=== PATIENT | male | born 1940 | race Two or more races ===

== ENCOUNTER 2018-12-11 13:47 | Inpatient (IN) | payer MEDICAID ==
[~2018-12-11] VITALS: Ht 167.6 cm; Wt 89.8 kg
[2018-12-11] VITALS (24 sets, daily range): BP systolic 77–126; BP diastolic 36–60
--- NOTE | 2018-12-11 13:55 | NUR ---
ED Nurse Note: Patient brought from [facility] [place] y[facility] bt transoport. IV access tot he elft arm removed due to infiltration patient A&O X1 SNF reported per transport that patient has been feverish receiving tylenol for 2 days and has been increasingly confused. Normal baseline A&O 3-4. No complaints of pain oral temp 101.2 EKG and xray ordered.
[2018-12-11] MEDS: Vancomycin 1 GM in NS 275 ML IV ONE ×2 (14:00→16:34)
[2018-12-11] MEDS ORDERED: Sodium Chloride 2,600 ML IVLG ONE (14:00)
--- NOTE | 2018-12-11 14:00 | Emergency Room Report ---
History of Present Illness General Chief Complaint: Altered Mental Status Source: EMS Present Illness HPI 78-year-old male presents with altered mental status, sepsis, history of hypertension, diabetes, foot amputation fever x1 day, measured fever, hypotension in 90s, unknown aggravating relieving factors severity is severe, symptoms are constant patient presents for septic work-up and evaluation. Allergies: Coded Allergies: PENICILLINS (Verified Allergy, Unknown, 12/11/18) Patient History Limited by: medical condition - Confused altered Past Medical History: see triage record Reviewed Nursing Documentation: PMH: Agreed; PSxH: Agreed Nursing Documentation-PMH Past Medical History: No History, Except For Hx Hypertension: Yes Hx Diabetes: Yes - DM 2 Review of Systems All Other Systems: limited - Confused altered Physical Exam Vital Signs Date Time Temp Pulse Resp B/P (MAP) Pulse Ox O2 Delivery O2 Flow Rate FiO2 12/11/18 13:47 100.2 101 24 101/52 (68) 100 Nasal Cannula 5.0 Sp02 EP Interpretation: reviewed, normal General Appearance: alert, moderate distress Head: normocephalic, atraumatic Eyes: bilateral eye PERRL, bilateral eye EOMI ENT: uvula midline, dry mucus membranes Neck: supple, thyroid normal, supple/symm/no masses Respiratory: lungs clear, no respiratory distress, no retraction, no accessory muscle use Cardiovascular #1: normal peripheral pulses, no edema, no gallop, no murmur, tachycardia Gastrointestinal: non tender, soft, no guarding, no rebound Musculoskeletal: normal inspection, other - LLE: left bartender helper to palpation , warm Neurologic: alert, responsive Psychiatric: other - confused Skin: no rash, warm/dry Procedures Critical Care Time Critical Care Time Given the critical condition in which the patient arrived, the patient was immediately assessed by myself and the nurse, and cardiac monitoring initiated due to the potential for rapid decompensation of the patient's clinical condition. During the course of the patient's stay, I spent a considerable amount of time at the bedside performing serial re-evaluations of the patient's hemodynamic and clinical status because of the recognized potential threat to life or limb in this condition. I then had a chance to review not only all of the available current laboratory and radiographic studies obtained today, but I also reviewed old records available to me at the time. Additionally, any ancillary information available including petroleum refining firer records were reviewed. Sequential vital signs were obtained. Critical Care time of 34 minutes was performed exclusive of billable procedures. Central Line Central Line : Consent: Emergent Central Line Lumen: triple Maximal Sterile Barrier Tech: yes cap, yes mask, yes sterile gown, yes sterile gloves, yes large sterile sheet, yes hand hygiene, yes chlorhexidine prep Central Line Postion: femoral (R) Anesthesia: Lidocaine cc's of anesthesia: 5 Complications: none Central Line Post Position: sutured, good blood return Attempts: One Patient Tolerated: Well Complications: None Medical Decision Making Diagnostic Impression: Primary Impression: Altered mental status Qualified Codes: R41.82 - Altered mental status, unspecified Additional Impressions: Sepsis Qualified Codes: A41.9 - Sepsis, unspecified organism Hypotension Qualified Codes: I95.9 - Hypotension, unspecified UTI (urinary tract infection) Qualified Codes: N30.00 - Acute cystitis without hematuria ER Course 78-year-old male presents in sepsis, patient is currently altered, pressure is normalized, after fluid bolus, patient initially hypotensive low 90s, high 80s she presents to the hospital for evaluation and resuscitation. Differential diagnosis includes pneumonia, Sepsis, ACS, UTI Patient will be resuscitated with 30 cc/kg of fluid, broad-spectrum antibiotics empirically started Patient became increasingly hypotensive and tachycardic central line had to be inserted, patient will be started on nor epi Patient will be admitted to the hospital Patient admitted to Dr. Chang Laboratory Tests Test 12/11/18 14:20 12/11/18 14:39 White Blood Count 25.9 K/UL (4.8-10.8) *H Red Blood Count 3.14 M/UL (4.70-6.10) L Hemoglobin 8.8 G/DL (14.2-18.0) L Hematocrit 27.3 % (42.0-52.0) L Mean Corpuscular Volume 87 FL (80-99) Mean Corpuscular Hemoglobin 28.0 PG (27.0-31.0) Mean Corpuscular Hemoglobin Concent 32.2 G/DL (32.0-36.0) Red Cell Distribution Width 13.9 % (11.6-14.8) Platelet Count 220 K/UL (150-450) Mean Platelet Volume 7.2 FL (6.5-10.1) Neutrophils (%) (Auto) % (45.0-75.0) Lymphocytes (%) (Auto) % (20.0-45.0) Monocytes (%) (Auto) % (1.0-10.0) Eosinophils (%) (Auto) % (0.0-3.0) Basophils (%) (Auto) % (0.0-2.0) Differential Total Cells Counted 100 Neutrophils % (Manual) 70 % (45-75) Lymphocytes % (Manual) 2 % (20-45) L Monocytes % (Manual) 2 % (1-10) Eosinophils % (Manual) 0 % (0-3) Basophils % (Manual) 0 % (0-2) Metamyelocytes % 1 % (0-0) H Band Neutrophils 25 % (0-8) H Nucleated Red Blood Cells 1 /100 WBC Platelet Estimate Adequate Platelet Morphology Normal Red Blood Cell Morphology Normal Prothrombin Time 11.9 SEC (9.30-11.50) H Prothrombin Time INR 1.1 (0.9-1.1) PTT 36 SEC (23-33) H Sodium Level 133 MMOL/L (136-145) L Potassium Level 4.3 MMOL/L (3.5-5.1) Chloride Level 100 MMOL/L (98-107) Carbon Dioxide Level 21 MMOL/L (21-32) Anion Gap 12 mmol/L (5-15) Blood Urea Nitrogen 69 mg/dL (7-18) H Creatinine 3.5 MG/DL (0.55-1.30) H Estimate Glomerular Filtration Rate mL/min (>60) Glucose Level 115 MG/DL (74-106) H Lactic Acid Level 1.50 mmol/L (0.4-2.0) Calcium Level 8.4 MG/DL (8.5-10.1) L Phosphorus Level 2.5 MG/DL (2.5-4.9) Magnesium Level 2.0 MG/DL (1.8-2.4) Total Bilirubin 0.3 MG/DL (0.2-1.0) Aspartate Amino Transferase (AST) 24 U/L (15-37) Alanine Aminotransferase (ALT) 8 U/L (12-78) L Alkaline Phosphatase 146 U/L (46-116) H Total Creatine Kinase 282 U/L (26-308) Creatine Kinase MB 1.1 NG/ML (0.0-3.6) Creatine Kinase MB Relative Index 0.3 Troponin I 0.000 ng/mL (0.000-0.056) Pro-B-Type Natriuretic Peptide 92389 pg/mL (0-125) H Total Protein 7.4 G/DL (6.4-8.2) Albumin 2.4 G/DL (3.4-5.0) L Globulin 5.0 g/dL Albumin/Globulin Ratio 0.5 (1.0-2.7) L Lipase 35 U/L (73-393) L Urine Color Yellow Urine Appearance Slightly cloudy Urine pH 5 (4.5-8.0) Urine Specific [place] 1.020 (1.005-1.035) Urine Protein 3+ (NEGATIVE) H Urine Glucose (UA) Negative (NEGATIVE) Urine Ketones Negative (NEGATIVE) Urine Blood Negative (NEGATIVE) Urine Nitrite Negative (NEGATIVE) Urine Bilirubin Negative (NEGATIVE) Urine Urobilinogen Normal MG/DL (0.0-1.0) Urine Leukocyte Esterase 1+ (NEGATIVE) H Urine RBC 0-2 /HPF (0 - 0) H Urine WBC 5-10 /HPF (0 - 0) H Urine Squamous Epithelial Cells Many /LPF (NONE/OCC) H Urine Bacteria Moderate /HPF (NONE) H EKG Diagnostic Results EKG Time: 13:59 EP Interpretation: NSR, rate 93, QTc 430, no acute ST elevations, normal axis Rhythm Strip Diag. Results Rhythm Strip Time: 14:24 EP Interpretation: yes Rate: 91 Rhythm: NSR, no PVC's, no ectopy Chest X-Ray Diagnostic Results Chest X-Ray Diagnostic Results : Chest X-Ray Ordered: Yes # of Views/Limited/Complete: 1 View Indication: Shortness of Breath EP Interpretation: Yes Interpretation: other - Congestion Impression: Other - Congestion Electronically Signed by: Moody Howell MD Other X-Ray Diagnostic Results Other X-Ray Diagnostic Results : X-Ray ordered: Left Foot # of Views/Limited Vs Complete: 3 View Indication: Pain EP Interpretation: Yes Interpretation: other - Cortical lucency seen possible osteo Impression: Other - Cortical lucency seen possible osteo Electronically Signed by: Moody Howell MD Last Vital Signs Date Time Temp Pulse Resp B/P (MAP) Pulse Ox O2 Delivery O2 Flow Rate FiO2 12/11/18 13:47 100.2 101 24 101/52 (68) 100 Nasal Cannula 5.0 Disposition: ADMITTED INPATIENT Condition: Serious Moody Howell MD Dec 11, 2018 14:00
[2018-12-11] MEDS ORDERED: Acetaminophen 650 MG SUPP RECTAL ONE ×2 (14:13→14:15)
[2018-12-11] MEDS ORDERED: Clindamycin 600mg 50 ML IVPB ONE (14:15)
[2018-12-11] MEDS ORDERED: CALCIUM CARBON600 M1 PO (14:20)
[2018-12-11] MEDS ORDERED: OMEPRAZOLE20 M2 ORAL (14:20)
[2018-12-11] MEDS ORDERED: FUROSEMIDE20 M1 ORAL (14:20)
[2018-12-11] MEDS ORDERED: ATORVASTATIN CA20 MG ORAL (14:20)
[2018-12-11] MEDS ORDERED: ACTOS15 MG ORAL (14:20)
[2018-12-11] MEDS ORDERED: ALENDRONAT70 MG/75 M PO (14:20)
[2018-12-11] MEDS ORDERED: METOPROLOL TART50 M1 ORAL (14:20)
[2018-12-11] MEDS ORDERED: COLACE100 MG ORAL (14:20)
[2018-12-11] MEDS ORDERED: GEMFIBROZIL600 M1 PO (14:20)
[2018-12-11] MEDS ORDERED: NORVASC10 MG ORAL (14:20)
[2018-12-11] MEDS ORDERED: TRAMADOL HCL100 M2 ORAL (14:20)
[2018-12-11] MEDS ORDERED: DULCOLAX10 MG RC (14:20)
[2018-12-11] MEDS ORDERED: HYDRALAZINE HCL25 M2 PO (14:20)
[2018-12-11] MEDS ORDERED: NEURONTIN300 MG ORAL (14:20)
--- NOTE | 2018-12-11 14:21 | Diagnostic Imaging Report ---
Indication: Dyspnea Comparison: None A single view chest radiograph was obtained. Findings: Doppler vascular congestion suspected with borderline cardiomegaly. Aorta is calcified. Bones are osteopenic. IMPRESSION: Suspected mild pulmonary vascular congestion
--- NOTE | 2018-12-11 14:30 | NUR ---
ED Nurse Note: RN notified Dr. Howell that pt oral temp is 102.8 F. tylenol 650mg rectal given as ordered. rectal temp 102.2 F. ICE applied.
[2018-12-11 14:51] LABS: APPEARANCE,URINE SLIGHTLY CLOUDY; BILIRUBIN, URINE NEGATIVE (NEGATIVE); GLUCOSE, URINE (UA) NEGATIVE (NEGATIVE); KETONES,URINE NEGATIVE (NEGATIVE); LEUKOCYTE ESTERASE ,URINE 1+ (NEGATIVE); NITRITE,URINE NEGATIVE (NEGATIVE); PH,URINE 5 (4.5-8.0); PROTEIN,URINE 3+ (NEGATIVE); UROBILINOGEN,URINE NORMAL MG/DL (0.0-1.0)
[2018-12-11 14:52] LABS: HEMATOCRIT 27.3 % (42.0-52.0); HEMOGLOBIN 8.8 G/DL (14.2-18.0); MEAN CORPUSCULAR VOLUME 87 FL (80-99); PLATELET COUNT 220 K/UL (150-450); RED BLOOD COUNT 3.14 M/UL (4.70-6.10); RED CELL DISTRIBUTION WIDTH 13.9 % (11.6-14.8)
[2018-12-11 14:52] LABS: COLOR,URINE YELLOW
[2018-12-11 14:57] LABS: WHITE BLOOD COUNT 25.9 K/UL (4.8-10.8)
[2018-12-11 15:02] LABS: ANION GAP 12 mmol/L (5-15); BLOOD UREA NITROGEN 69 mg/dL (7-18); CALCIUM 8.4 MG/DL (8.5-10.1); CARBON DIOXIDE 21 MMOL/L (21-32); CHLORIDE 100 MMOL/L (98-107); CREATININE 3.5 MG/DL (0.55-1.30); POTASSIUM 4.3 MMOL/L (3.5-5.1); SODIUM 133 MMOL/L (136-145)
[2018-12-11 15:07] LABS: INR 1.1 (0.9-1.1)
[2018-12-11 15:15] LABS: ALANINE AMINOTRANSFERASE 8 U/L (12-78); ALBUMIN 2.4 G/DL (3.4-5.0); ALBUMIN/GLOBULIN RATIO 0.5 (1.0-2.7); ALKALINE PHOSPHATASE 146 U/L (46-116); ASPARTATE AMINO TRANSFERASE 24 U/L (15-37); BILIRUBIN,TOTAL 0.3 MG/DL (0.2-1.0); CKMB 1.1 NG/ML (0.0-3.6); CREATINE KINASE 282 U/L (26-308); PHOSPHORUS 2.5 MG/DL (2.5-4.9)
[2018-12-11] MEDS ORDERED: Lidocaine 1% MPF 10mg/ml 5ml IM ONE (15:30)
[2018-12-11] MEDS: Cefepime HCl 2 GM in NS 110 ML IV SCH (15:40)
[2018-12-11] MEDS ORDERED: fentaNYL 100 mcg/2 mL IV ONE (15:45)
--- NOTE | 2018-12-11 16:07 | NUR ---
ED Nurse Note: CENTRAL LINE INSERTED BY MD DUE TO HYPOTENSION. IV BOLUS 1000MLS COMPLETED. MAITENENCE FLUIDS INFUSING. ANTIBIOTIC THERAPY IN PROGRESS.
--- NOTE | 2018-12-11 17:30 | NUR ---
ED Nurse Note: CALLED PT'S DAUGHTER BUT NO ANSWER AT THIS TIME. ENDORSED TO PRIMARY RN REGARDING PT'S DAUGHTER'S NUMBER.
--- NOTE | 2018-12-11 17:41 | NUR ---
ER DISCHARGE NOTE: Patient is cleared to be discharged per ERMD, per MD miller to perform the doppler exam in the ICU. Handoff given to oil driller. Advised RN that daughter requesting update once patient arrives in the ICU. Patient transferred on monitor nasal cannula insitu 5 litres oxygen via nasal cannula, patient currently sleeping, noradrenaline infusion continued via central line. IV vancomycin infusion and human albumin infuisions also in progress.
[2018-12-11] MEDS ORDERED: Albuterol/Ipratropium 3ml neb HHN PRN (17:45)
[2018-12-11] MEDS ORDERED: Morphine Sulfate 2mg/ml Inj(IV/IM USE ONLY) IVP PRN (17:45)
[2018-12-11] MEDS ORDERED: Miralax 17gm pkt ORAL PRN (17:45)
--- NOTE | 2018-12-11 17:45 | NUR ---
NURSE NOTES: Received patient from BENJAMIN Sam. Patient Blood pressure stable at this time on Levophed 4mcg/hr. patient showing sinus tachycardia on the hall monitor at this time with rate of 111 breathes per min. Patient on 3L NC with saturation 100%. patient denies pain or acute distress. Patient drowsy but arousable to name and shaking. Patient alert to name. Patient french speaking. Patient understands some urdu. Patient has right femoral TLC that is patent with intact dressing. Patient has diaper from retirement that has been removed at this time. Patient has not voided according to ER nurse. Bladder scan showed only 85mL residual urine in bladder. Condom catheter placed due to patient's lethargic state and to protect femoral line. Patient has bilateral hand 20 gauge peripheral IVs. Patient last lactic acid was 1.5. NO redraw needed per protocol. Dr Chang is the primary. Will call for admission orders. Patient bed in low position with bed alarm on and call light in reach at this time. Spoke with patient's daughter over the phone and updated her on the patient's condition.
[2018-12-11] MEDS ORDERED: HydrALAZINE 25mg tab ORAL SCH (18:00)
--- NOTE | 2018-12-11 18:22 | Diagnostic Imaging Report ---
History: PAIN Exam: XR LEFT FOOT 2 views Comparison: None available FINDINGS: Status post amputation at the mid foot. No definite appearing acute osseous destruction or periosteal reaction identified. Possible small focus of soft tissue ulceration or air at the anterior lateral aspect of the stump, clinically correlate. Osteopenia and vascular calcifications noted. No fracture. IMPRESSION: Status post amputation at the mid foot. No definite appearing acute osseous destruction or periosteal reaction identified. Possible small focus of soft tissue ulceration or air at the anterior lateral aspect of the stump, clinically correlate.
[2018-12-11] MEDS ORDERED: Amikacin Rx to dose MISC PRN (19:15)
--- NOTE | 2018-12-11 19:45 | NUR ---
HAND-OFF: Report given to BENJAMIN Motta. Patient blood pressure stable on 4mcg/hr levophed drip. Endorsed to follow up.
--- NOTE | 2018-12-11 19:50 | NUR ---
NURSE NOTES: Received patient and report from BENJAMIN Leach. Patient blood pressure stable at this time on Levophed 30mcg/hr. patient showing SR on the engine monitor, HR 69. Patient on 2L/ NC with saturation 100%. patient denies pain or acute distress. Patient drowsy but arousable to name and shaking. Patient alert to name. Patient american speaking. Patient understands some malay. NPO at this time. Patient has right femoral TLC that is patent with intact dressing, running Levophed at 4mcg/min. NS at 100ml/hr. Pt also has Right hand 22G and Left FA 20 G, all intact. Patient has condom catheter placed due to patient's lethargic state and to protect femoral line. Patient bed in low position with bed alarm on and call light in reach at this time. Will continue to monitor.
[2018-12-11] MEDS ORDERED: Ertapenem 1 GM in NS 55 ML IV ONE (20:00)
[2018-12-11] MEDS: Dyna-Hex 2% Top Sol 2oz TOPIC SCH (20:33)
[2018-12-11] MEDS: Heparin 5000 units/ml inj SUBQ SCH (20:34)
[2018-12-11] MEDS ORDERED: Vancomycin 500mg/D5W 110ml IVPB ONE ×2 (22:00)
[2018-12-11] MEDS ORDERED: Vancomycin 1 GM in D5W 275 ML IV SCH (23:45)
--- NOTE | 2018-12-11 23:52 | NUR ---
NURSE NOTES: Bladder scan showed 228ml retention of urine, per Dr Crawford to insert reyes. Order noted and carried out.
[2018-12-12] VITALS (39 sets, daily range): BP systolic 104–142; BP diastolic 43–68
[2018-12-12] MEDS ORDERED: Amikacin 500 MG in NS 110 ML IV ONE ×2
--- NOTE | 2018-12-12 01:00 | NUR ---
NURSE NOTES: Pt's resting in bed, asleep with eyes closed. VS stable, in no acute distress. Levophed has stopped. Will continue to monitor.
--- NOTE | 2018-12-12 03:00 | NUR ---
NURSE NOTES: Pt's resting in bed, asleep, in no acute distress. No more pressor. VS stable. Will continue to monitor.
[2018-12-12] MEDS: Cefepime HCl 2 GM in NS 110 ML IV SCH (04:53)
--- NOTE | 2018-12-12 05:00 | NUR ---
NURSE NOTES: Pt's resting in bed, asleep, in no acute distress. No more pressor. VS stable. Will continue to monitor.
[2018-12-12 05:45] LABS: HEMATOCRIT 25.7 % (42.0-52.0); MEAN CORPUSCULAR VOLUME 89 FL (80-99); PLATELET COUNT 214 K/UL (150-450); RED BLOOD COUNT 2.89 M/UL (4.70-6.10); RED CELL DISTRIBUTION WIDTH 14.3 % (11.6-14.8)
[2018-12-12 05:50] LABS: WHITE BLOOD COUNT 26.1 K/UL (4.8-10.8)
[2018-12-12 06:24] LABS: ALANINE AMINOTRANSFERASE 12 U/L (12-78); ALBUMIN 2.2 G/DL (3.4-5.0); ALBUMIN/GLOBULIN RATIO 0.4 (1.0-2.7); ALKALINE PHOSPHATASE 115 U/L (46-116); ANION GAP 12 mmol/L (5-15); ASPARTATE AMINO TRANSFERASE 31 U/L (15-37); BILIRUBIN,DIRECT 0.1 MG/DL (0.0-0.3); BILIRUBIN,TOTAL 0.3 MG/DL (0.2-1.0); CALCIUM 7.7 MG/DL (8.5-10.1); CARBON DIOXIDE 19 MMOL/L (21-32); CHLORIDE 105 MMOL/L (98-107); CREATININE 3.3 MG/DL (0.55-1.30); POTASSIUM 4.3 MMOL/L (3.5-5.1); SODIUM 136 MMOL/L (136-145)
[2018-12-12 06:38] LABS: BLOOD UREA NITROGEN 68 mg/dL (7-18)
--- NOTE | 2018-12-12 07:05 | NUR ---
HAND-OFF: Report given to BENJAMIN Castro.
--- NOTE | 2018-12-12 08:00 | NUR ---
NURSE NOTES: Receive change of shift report from Kalia RN. Pt is asleep, awakens to name/voice, oriented x2; pt is primarily Arabic speaking. Pt is on 2L of oxygen via nasal cannula with 100% O2sat and bilateral diminished breath sounds on auscultation. front desk monitor displays NSR with heart rate in the 80's and bounding radia/weak peripheral pulses on palpation. Abdomen is large, round, soft/nontender to touch with hypoactive bowel sounds. Pt has Lyles catheter in place, draining yellow and mildly cloudy urine. Denies pain at this time. Pt has central line IV access on right femoral site TLC infusing NS at 100ml/hour; and two peripheral IV access, left FA #20G and right hand #22G, both saline locked, patent/intact. Skin is intact; pt has old/healed scar on sacrum and bilateral feet from history of bilateral toes amputation. Extremities are elevated on pillows. Bed is locked, in lowest position with three side rails up and call light within easy reach. Will continue to monitor pt and follow plan of care per MD orders and protocol.
[2018-12-12] MEDS ORDERED: NS 275ml ONE (08:37)
[2018-12-12] MEDS ORDERED: Tubing IV Secondary IV ONE (08:37)
[2018-12-12] MEDS ORDERED: Tubing IV Blood Pump IV ONE (08:37)
[2018-12-12] MEDS: Heparin 5000 units/ml inj SUBQ SCH ×2 (08:56→20:32)
--- NOTE | 2018-12-12 08:59 | NUR ---
RD ASSESSMENT & RECOMMENDATIONS SEE CARE ACTIVITY FOR COMPLETE ASSESSMENT DAILY ESTIMATED NEEDS: Needs based on Sepsis, 55.5kg abw 25-35 kcals/kg 7985-5259 total kcals 1-2 g protein/kg 56-111 g total protein 25-30 mL/kg 6044-2060 total fluid mLs NUTRITION DIAGNOSIS: Altered nutrition related lab values R/T sepsis, clinical condition as evidenced by critically elev wbc (26.1*), hypotensive, now off pressor support, Tmax of 102.2-> now afebrile, elev BNP (77654), elev creat (3.3). CURRENT DIET:NPO PO DIET RECOMMENDATIONS: LOW NA, CCHO MED/ texture as tolerated or per COKE CRANE OPERATOR ADDITIONAL RECOMMENDATIONS: * Per SNF: HT=5'0", [id number] (12/10/18) -> Re-calibrate bedscale * Consider COKE CRANE OPERATOR evaluation for appropriate texture * Monitor BGs, need for hypoglycemics: H/o DM * Rec wound eval: wound photos noted
[2018-12-12] MEDS ORDERED: Pantoprazole Inj IVP SCH (09:00)
--- NOTE | 2018-12-12 10:05 | Consultation ---
Consult Note Consult Note asked to eval for renal failure 78-year-old male presents with altered mental status, sepsis, history of hypertension, diabetes, foot amputation fever x1 day, measured fever, hypotension in 90s, unknown aggravating relieving factors severity is severe, symptoms are constant patient presents for septic work-up and evaluation. Allergies: PENICILLINS (Verified Allergy, Unknown, 12/11/18) Past Medical History: No History, Except For Hx Hypertension: Yes Hx Diabetes: Yes - DM 2 examined in ICU with RN Slovak speaker data reviewed . Assessment/Plan Septic shock- was on pressors , now is off Diabetic nephropathy CKD Anemia s/p foot and LE amputations Avoid nephrotoxics urine studies 2D echo Kidney TELLO keep BP and BS in check Anemia daley per orders Naveed Vanegas MD Dec 12, 2018 10:05
[2018-12-12 10:20] LABS: CHOLESTEROL 130 MG/DL (< 200); HDL CHOLESTEROL 10 MG/DL (40-60); PHOSPHORUS 4.4 MG/DL (2.5-4.9); TRIGLYCERIDES 264 MG/DL (30-150)
[2018-12-12 10:33] LABS: FERRITIN 123 NG/ML (8-388)
[2018-12-12] MEDS: D5NS 1,000 ML IV SCH (10:51)
--- NOTE | 2018-12-12 11:00 | NUR ---
NURSE NOTES: Pt was seen by Dr Crawford and Dr Vanegas. NS was discontinued and D5NS was started at 75ml/hour per MD orders. Order in place for Renal diet. 2D echo was done at bedside, with preliminary EF reading of 55-60%. Chest xray and ABGs were also drawn. VS stable.
[2018-12-12 11:24] LABS: % IRON SATURATION 4 % (15-50); IRON 6 ug/dL (50-175); TOTAL IRON BINDING CAPACITY 163 ug/dL (250-450)
--- NOTE | 2018-12-12 12:30 | NUR ---
NURSE NOTES: Pt refused to eat breakfast and lunch today. States "I'm not hungry" in Fijian and wants to sleep. Pt is drowsy and fatigued. IV fluid is currently infusing D5NS at 75ml/hour per Dr Vanegas's order. VS remain stable with heart rate/rhythm in the 70's and normal sinus rhythm. Pt remains on 2L of oxygen via nasal cannula at 100% O2sat. Remains afebrile. Denies any pain or discomfort at this time.
--- NOTE | 2018-12-12 12:37 | Diagnostic Imaging Report ---
EXAM: XR Chest, 1 View CLINICAL HISTORY: DYSPNEA TECHNIQUE: Frontal view of the chest. COMPARISON: Chest x-ray 9 20 19 1402 FINDINGS: Lungs: Vascular congestion. Mild interstitial prominence. No consolidation. Pleural space: Unremarkable. No pneumothorax. Heart: Mild cardiomegaly. Mediastinum: Unremarkable. Bones joints: Unremarkable. IMPRESSION: Mild cardiomegaly. Vascular congestion and mild interstitial prominence, worse than prior study. Query CHF.
[2018-12-12] MEDS: Docusate 100mg cap ORAL SCH ×2 (13:00→18:14)
--- NOTE | 2018-12-12 13:42 | NUR ---
RESPIRATORY NOTE: pt refusing nasal sxn for sputum culture. RN notified.
--- NOTE | 2018-12-12 14:54 | NUR ---
NURSE NOTES: Pt's daughter (next of kin) called the nurse's station and requested update on the pt's condition. Pt remains asleep with stable VS and in no apparent distress.
--- NOTE | 2018-12-12 15:50 | Diagnostic Imaging Report ---
EXAM: US Retroperitoneal Complete, Renal CLINICAL HISTORY: RENAL-A TECHNIQUE: Real-time complete ultrasound of the retroperitoneum with image documentation. COMPARISON: No relevant prior studies available. FINDINGS: Right kidney: 2.3 x 2.4 x 1.7 cm anechoic right renal cyst. Right kidney measures 9.1 x 4.51 x 5.74 cm. No stones. No hydronephrosis. Left kidney: Left kidney measures 9.1 x 5.26 x 6.24 cm. No stones. No hydronephrosis. Bladder: Lyles catheter in the urinary bladder. IMPRESSION: 2.3 x 2.4 x 1.7 cm anechoic right renal cyst. Otherwise unremarkable.
--- NOTE | 2018-12-12 16:16 | Cardiology Report ---
APPROVED REPORT EXAM: Two-dimensional and M-mode echocardiogram with Doppler and color Doppler. INDICATION LV FUNCTION M-Mode DIMENSIONS IVSd1.2 (0.7-1.1cm)Left Atrium (MM)3.5 (1.6-4.0cm) LVDd3.9 (3.5-5.6cm)Aortic Root3.6 (2.0-3.7cm) PWd1.6 (0.7-1.1cm)Aortic Cusp Exc.1.7 (1.5-2.0cm) IVSs1.3 cm LVDs2.8 (2.5-4.0cm) PWs1.0 cm Normal left ventricular chamber size, systolic function and wall motion. Left ventricular ejection fraction estimated to be 55-60 %. No left ventricular hypertrophy. No evidence of pericardial effusion. All other cardiac chamber sizes are within normal limits. Focal aortic valve sclerosis with adequate cusp excursion. Thickened mitral valve leaflets with normal excursion. Mitral annulus and aortic root calcification. Normal pulmonic valve structure. Normal tricuspid valve structure. IVC at size 2.0 cm with slightly physiologic collapse. A color flow and spectral Doppler study was performed and revealed: No aortic regurgitation. Mild mitral regurgitation. Mitral inflow indicates normal left ventricular diastolic function. Trace tricuspid regurgitation. Tricuspid systolic velocities suggests peak right ventricular systolic pressure of 17 mmHg. No Pulmonic regurgitation present.
--- NOTE | 2018-12-12 16:41 | Consultation ---
History of Present Illness General Date patient seen: Dec 12, 2018 Chief Complaint: Altered Mental Status Present Illness HPI 78-year-old male with hx of DM, HTN, bilateral BKA presented to ER from a [facility] with altered mental status, sepsis, fever x1 day. Pt has a hypotension in 90s, unknown aggravating relieving factors severity is severe. Pt was persistently hypotensive in ER and was started on Levophed drip and transferred to ICU. Allergies: Coded Allergies: PENICILLINS (Verified Allergy, Unknown, 12/11/18) Medication History Scheduled Amlodipine Besylate (Norvasc), 10 MG ORAL DAILY, (Reported) Atorvastatin Calcium* (Atorvastatin Calcium*), 10 MG ORAL BEDTIME, (Reported) Calcium Carbonate (Calcium Carbonate), 600 MG PO DAILY, (Reported) Docusate Sodium* (Colace*), 100 MG ORAL DAILY, (Reported) Furosemide* (Lasix*), 20 MG ORAL DAILY, (Reported) Gabapentin (Neurontin), 300 MG ORAL THREE TIMES A DAY, (Reported) Gemfibrozil (Gemfibrozil), 600 MG PO BID, (Reported) Hydralazine HCl (Hydralazine HCl), 25 MG PO TID, (Reported) Metoprolol Tartrate* (Metoprolol Tartrate*), 50 MG ORAL EVERY 12 HOURS, ( Reported) Omeprazole (Omeprazole), 20 MG ORAL DAILY, (Reported) Pioglitazone Hcl* (Actos*), 15 MG ORAL DAILY, (Reported) Scheduled PRN Tramadol Hcl (Tramadol Hcl), 50 MG ORAL Q4HR PRN for For Pain, (Reported) Miscellaneous Medications Alendronate Sodium (Alendronate Sodium), 70 MG PO, (Reported) Bisacodyl (Dulcolax), 10 MG RC, (Reported) Patient History Healthcare decision maker Resuscitation status Full Code Advanced Directive on File No Past Medical/Surgical History Past Medical/Surgical History: (1) History of hypertension (2) Diabetes mellitus Review of Systems All Other Systems: negative except mentioned in HPI Physical Exam General Appearance: WD/WN Lines, tubes and drains: peripheral HEENT: normocephalic, mucous membranes moist Neck: non-tender, supple Respiratory/Chest: chest wall non-tender, lungs clear Breasts: no masses Cardiovascular/Chest: normal peripheral pulses, normal rate Abdomen: normal bowel sounds, non tender Genitourinary/Rectal: normal genital exam Extremities: normal range of motion Skin Exam: normal pigmentation 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 Last 24 Hour Vital Signs Date Time Temp Pulse Resp B/P (MAP) Pulse Ox O2 Delivery O2 Flow Rate FiO2 12/12/18 15:00 79 13 128/49 (75) 100 12/12/18 14:00 78 9 127/47 (73) 100 12/12/18 13:41 100 Nasal Cannula 2.0 28 12/12/18 13:41 81 14 100 Nasal Cannula 2.0 28 12/12/18 13:00 80 12 130/46 (74) 100 12/12/18 12:00 81 12/12/18 12:00 98.1 78 11 117/45 (69) 100 12/12/18 12:00 Nasal Cannula 3.0 12/12/18 11:30 79 12 130/50 (76) 99 12/12/18 11:00 76 11 119/46 (70) 100 12/12/18 10:30 76 11 115/49 (71) 100 12/12/18 10:00 77 11 122/48 (72) 100 12/12/18 09:30 76 11 114/47 (69) 100 12/12/18 09:00 78 20 124/47 (72) 100 12/12/18 08:30 79 11 133/63 (86) 100 12/12/18 08:00 97.8 74 11 115/48 (70) 100 12/12/18 08:00 74 12/12/18 08:00 Nasal Cannula 3.0 12/12/18 07:00 74 12 116/46 (69) 100 12/12/18 06:30 73 12 118/48 (71) 100 12/12/18 06:00 74 12 120/46 (70) 100 12/12/18 05:30 72 12 109/46 (67) 100 12/12/18 05:00 75 14 125/52 (76) 100 12/12/18 04:30 75 15 124/51 (75) 100 12/12/18 04:00 Nasal Cannula 3.0 12/12/18 04:00 98.8 70 12 111/46 (67) 100 12/12/18 04:00 70 12/12/18 03:30 71 12 117/50 (72) 100 12/12/18 03:00 67 12 106/43 (64) 100 12/12/18 02:30 69 12 104/43 (63) 100 12/12/18 02:00 68 13 105/43 (63) 100 12/12/18 01:30 67 13 104/45 (64) 100 12/12/18 01:00 69 13 118/44 (68) 100 12/12/18 01:00 104/45 12/12/18 00:30 69 13 115/47 (69) 100 12/12/18 00:00 68 12/12/18 00:00 Nasal Cannula 3.0 12/12/18 00:00 65 13 116/44 (68) 100 12/12/18 00:00 118/44 12/11/18 23:30 67 13 111/47 (68) 100 12/11/18 23:00 66 13 116/46 (69) 100 12/11/18 23:00 116/45 12/11/18 22:30 65 13 116/45 (68) 100 12/11/18 22:00 117/46 12/11/18 22:00 67 13 117/46 (69) 100 12/11/18 21:30 68 13 116/47 (70) 100 12/11/18 21:00 65 13 118/47 (70) 100 12/11/18 21:00 118/47 12/11/18 20:58 100 Nasal Cannula 2.0 12/11/18 20:57 102 13 100 Nasal Cannula 2.0 12/11/18 20:30 70 13 110/48 (68) 100 12/11/18 20:19 89/39 12/11/18 20:00 73 13 89/39 (56) 100 12/11/18 20:00 Nasal Cannula 3.0 12/11/18 20:00 69 12/11/18 20:00 2.0 12/11/18 19:30 98.7 85 13 112/44 (66) 100 12/11/18 19:00 85 13 112/44 (66) 100 85 12/11/18 18:05 110 13 77/47 98 5.0 12/11/18 18:00 111 13 113/45 (67) 100 111 12/11/18 17:56 105 15 85/44 98 5.0 12/11/18 17:55 98.9 105 15 85/44 98 Nasal Cannula 5.0 12/11/18 17:45 98.9 122 13 112/57 100 Nasal Cannula 5.0 12/11/18 17:45 Nasal Cannula 3.0 12/11/18 17:45 Nasal Cannula 4.0 12/11/18 17:30 122 13 112/57 98 Nasal Cannula 5.0 12/11/18 17:30 97.7 113 13 126/60 (82) 100 113 12/11/18 17:06 123/68 12/11/18 17:01 93/57 12/11/18 16:58 98.9 91 20 105/51 98 5.0 12/11/18 16:56 98/52 12/11/18 16:51 93/57 12/11/18 16:46 93/56 Intake and Output 12/11/18 12/12/18 19:00 07:00 Intake Total 2250 ml 1571.29 ml Output Total 10 ml 380 ml Balance 2240 ml 1191.29 ml Intake IV Total 2250 ml 1571.29 ml Output Urine Total 10 ml 380 ml Laboratory Tests Test 12/12/18 04:40 12/12/18 08:50 White Blood Count 26.1 K/UL (4.8-10.8) *H Red Blood Count 2.89 M/UL (4.70-6.10) L Hemoglobin 8.0 G/DL (14.2-18.0) L Hematocrit 25.7 % (42.0-52.0) L Mean Corpuscular Volume 89 FL (80-99) Mean Corpuscular Hemoglobin 27.6 PG (27.0-31.0) Mean Corpuscular Hemoglobin Concent 31.1 G/DL (32.0-36.0) L Red Cell Distribution Width 14.3 % (11.6-14.8) Platelet Count 214 K/UL (150-450) Mean Platelet Volume 7.3 FL (6.5-10.1) Neutrophils (%) (Auto) % (45.0-75.0) Lymphocytes (%) (Auto) % (20.0-45.0) Monocytes (%) (Auto) % (1.0-10.0) Eosinophils (%) (Auto) % (0.0-3.0) Basophils (%) (Auto) % (0.0-2.0) Differential Total Cells Counted 100 Neutrophils % (Manual) 79 % (45-75) H Lymphocytes % (Manual) 9 % (20-45) L Monocytes % (Manual) 1 % (1-10) Eosinophils % (Manual) 0 % (0-3) Basophils % (Manual) 0 % (0-2) Band Neutrophils 11 % (0-8) H Platelet Estimate Adequate Platelet Morphology Normal Hypochromasia 1+ Anisocytosis 1+ Sodium Level 136 MMOL/L (136-145) Potassium Level 4.3 MMOL/L (3.5-5.1) Chloride Level 105 MMOL/L (98-107) Carbon Dioxide Level 19 MMOL/L (21-32) L Anion Gap 12 mmol/L (5-15) Blood Urea Nitrogen 68 mg/dL (7-18) H Creatinine 3.3 MG/DL (0.55-1.30) H Estimat Glomerular Filtration Rate mL/min (>60) Glucose Level 114 MG/DL (74-106) H Uric Acid 10.1 MG/DL (2.6-7.2) H Calcium Level 7.7 MG/DL (8.5-10.1) L Phosphorus Level 4.4 MG/DL (2.5-4.9) Magnesium Level 2.1 MG/DL (1.8-2.4) Iron Level 6 ug/dL (50-175) L Total Iron Binding Capacity 163 ug/dL (250-450) L Percent Iron Saturation 4 % (15-50) L Unsaturated Iron Binding 157 ug/dL (112-346) Ferritin 123 NG/ML (8-388) Total Bilirubin 0.3 MG/DL (0.2-1.0) Direct Bilirubin 0.1 MG/DL (0.0-0.3) Aspartate Amino Transf (AST/SGOT) 31 U/L (15-37) Alanine Aminotransferase (ALT/SGPT) 12 U/L (12-78) Alkaline Phosphatase 115 U/L (46-116) Total Protein 7.2 G/DL (6.4-8.2) Albumin 2.2 G/DL (3.4-5.0) L Globulin 5.0 g/dL Albumin/Globulin Ratio 0.4 (1.0-2.7) L Triglycerides Level 264 MG/DL (30-150) H Cholesterol Level 130 MG/DL (< 200) LDL Cholesterol 36 mg/dL (<100) HDL Cholesterol 10 MG/DL (40-60) L Cholesterol/HDL Ratio 13.0 (3.3-4.4) H Vitamin B12 Level > 2000 PG/ML (193-986) H Folate 5.5 NG/ML (8.6-58.9) L Thyroid Stimulating Hormone (TSH) 1.674 uiU/mL (0.358-3.740) Arterial Blood pH 7.249 (7.350-7.450) Arterial Blood Partial Pressure CO2 42.4 mmHg (35.0-45.0) Arterial Blood Partial Pressure O2 91.0 mmHg (75.0-100.0) Arterial Blood HCO3 18.1 mmol/L (22.0-26.0) L Arterial Blood Oxygen Saturation 96.5 % (95-100) Arterial Blood Base Excess -8.5 (-2-2) L Kristian Test Positive Height (Feet): 5 Height (Inches): 6.00 Weight (Pounds): 185 Medications Current Medications Medications (Trade) Dose Ordered Sig/Cammy Route PRN Reason Start Time Stop Time Status Last Admin Dose Admin Acetaminophen (Tylenol) 650 mg Q4H PRN ORAL T>100.5 12/11/18 17:45 01/10/19 17:44 Albuterol/ Ipratropium (Albuterol/ Ipratropium) 3 ml Q4H PRN HHN Shortness of Breath 12/11/18 17:45 12/16/18 17:44 Amikacin Protocol (Amikacin pharmacy to dose) 1 ea DAILY PRN MISC . 12/11/18 19:15 01/10/19 19:14 Chlorhexidine Gluconate (Yi-Hex 2%) 1 applic DAILY@2000 TOPIC 12/11/18 20:00 01/10/19 19:59 12/11/18 20:33 Dextrose/Sodium Chloride 1,000 ml @ 75 mls/hr [id number] IV 12/12/18 10:15 01/11/19 10:14 12/12/18 10:51 Docusate Sodium (Colace) 100 mg THREE TIMES A DAY ORAL 12/12/18 13:00 01/11/19 12:59 Epoetin William (Procrit (for non ESRD use)) 10,000 units MON-WED-FRI SUBQ 12/14/18 21:00 01/13/19 20:59 Ertapenem 0.5 gm/ Sodium Chloride 55 ml @ 110 mls/hr Q24H IV 12/12/18 20:00 12/17/18 19:59 Heparin Sodium (Porcine) (Heparin 5000 units/ml) 5,000 units EVERY 12 HOURS SUBQ 12/11/18 21:00 01/10/19 20:59 12/12/18 08:56 Morphine Sulfate (Morphine Sulfate) 2 mg Q4H PRN IVP Severe Pain (Pain Scale 7-10) 12/11/18 17:45 12/18/18 17:44 Norepinephrine Bitartrate 4 mg/ Dextrose 254 ml @ 0 mls/hr Q24H IV 12/11/18 19:01 01/10/19 19:00 12/11/18 20:19 Ondansetron HCl (Zofran) 4 mg Q6H PRN IVP Nausea & Vomiting 12/11/18 17:45 01/10/19 17:44 Pantoprazole (Protonix) 40 mg Q12HR IVP 12/12/18 21:00 01/11/19 08:59 Polyethylene Glycol (Miralax) 17 gm DAILYPRN PRN ORAL Constipation 12/11/18 17:45 01/10/19 17:44 Vancomycin HCl (Vanco rx to dose) 1 ea DAILY PRN MISC . 12/11/18 18:00 01/10/19 17:59 Assessment/Plan Problem List: (1) Sepsis ICD Codes: A41.9 - Sepsis, unspecified organism SNOMED: 93900076 Qualifiers: Qualified Codes: A41.9 - Sepsis, unspecified organism (2) UTI (urinary tract infection) ICD Codes: N39.0 - Urinary tract infection, site not specified SNOMED: 19691391 Qualifiers: Qualified Codes: N30.00 - Acute cystitis without hematuria (3) Diabetes mellitus ICD Codes: E11.9 - Type 2 diabetes mellitus without complications SNOMED: 25029336 (4) Hypotension ICD Codes: I95.9 - Hypotension, unspecified SNOMED: 46199764 Qualifiers: Qualified Codes: I95.9 - Hypotension, unspecified (5) History of hypertension ICD Codes: Z86.79 - Personal history of other diseases of the circulatory system SNOMED: 343112341 Assessment/Plan: iv fluids check electrolytes renal evaluaiton renal US echo cardiac evaluation dvt prophylaxis Karrie Crawford MD Dec 12, 2018 16:41
--- NOTE | 2018-12-12 17:30 | NUR ---
NURSE NOTES: Pt was seen by Dr Chang. was notified that pt has been refusing breakfast, lunch and dinner today. Pt remains on D5NS at 75ml/hour. VS stable. Orders were received and processed for AM labs, ABGs and sliding scale insulin. Also, per Dr Chang, pt is to remain in ICU until ABGs stabilize.
--- NOTE | 2018-12-12 18:30 | NUR ---
NURSE NOTES: Pt was cleaned, gown/bed linens changed and assisted with repositioning. Bilateral extremities are elevated on pillows. VS stable, denies pain and is resting in no apparent distress.
--- NOTE | 2018-12-12 19:20 | NUR ---
NURSE NOTES: Received patient and report from BENJAMIN Castro. Pt's resting in bed comfortably. No acute distress noted. SR on the residential monitor, HR 69. Patient on 2L/ NC with saturation 100%. patient denies pain or acute distress. Refused his dinner per AM nurse. Patient has right femoral TLC that is patent with intact dressing, running D5NS at 75ml/hr. Pt also has Right hand 22G and Left FA 20 G, all intact. Patient has Lyles due to urinary retention, draining cloudy yellow urine. Bed in low position with bed alarm on and call light in reach at this time. Will continue to monitor.
[2018-12-12] MEDS ORDERED: Ertapenem 500mg ivpb (q24h) IV SCH ×2 (20:00)
[2018-12-12] MEDS: Pantoprazole Inj IVP SCH (20:30)
[2018-12-12] MEDS: Dyna-Hex 2% Top Sol 2oz TOPIC SCH (20:30)
[2018-12-12] MEDS: NovoLOG Insulin Flexpen SUBQ SCH (20:33)
--- NOTE | 2018-12-12 22:00 | NUR ---
NURSE NOTES: Pt's resting in bed, in no acute distress, asleep with eyes closed. VS stable. Will continue to monitor.
[2018-12-12] MEDS ORDERED: Vancomycin 1.25gm/D5W 275ml IVPB SCH ×2 (23:00)
[2018-12-13] VITALS (24 sets, daily range): BP systolic 128–158; BP diastolic 46–66
--- NOTE | 2018-12-13 | NUR ---
NURSE NOTES: Pt's resting in bed, in no acute distress, asleep with eyes closed. VS stable. Will continue to monitor.
[2018-12-13] MEDS: D5NS 1,000 ML IV SCH ×2 (00:03→12:55)
--- NOTE | 2018-12-13 02:00 | NUR ---
NURSE NOTES: Pt's resting in bed, in no acute distress, asleep with eyes closed. VS stable. Will continue to monitor.
--- NOTE | 2018-12-13 04:00 | NUR ---
NURSE NOTES: Pt's resting in bed, in no acute distress, asleep with eyes closed. VS stable. Will continue to monitor.
[2018-12-13 05:29] LABS: HEMATOCRIT 25.6 % (42.0-52.0); HEMOGLOBIN 7.9 G/DL (14.2-18.0); MEAN CORPUSCULAR VOLUME 88 FL (80-99); PLATELET COUNT 218 K/UL (150-450); RED CELL DISTRIBUTION WIDTH 14.6 % (11.6-14.8)
[2018-12-13 05:54] LABS: WHITE BLOOD COUNT 23.3 K/UL (4.8-10.8)
[2018-12-13 05:58] LABS: ALANINE AMINOTRANSFERASE 13 U/L (12-78); ALBUMIN/GLOBULIN RATIO 0.4 (1.0-2.7); ALKALINE PHOSPHATASE 136 U/L (46-116); ANION GAP 12 mmol/L (5-15); ASPARTATE AMINO TRANSFERASE 27 U/L (15-37); BILIRUBIN,TOTAL 0.3 MG/DL (0.2-1.0); BLOOD UREA NITROGEN 63 mg/dL (7-18); CALCIUM 8.3 MG/DL (8.5-10.1); CARBON DIOXIDE 18 MMOL/L (21-32); CHLORIDE 109 MMOL/L (98-107); CREATININE 2.8 MG/DL (0.55-1.30); POTASSIUM 4.2 MMOL/L (3.5-5.1); SODIUM 139 MMOL/L (136-145)
--- NOTE | 2018-12-13 06:00 | History and Physical Report ---
DATE OF ADMISSION: 12/11/2018 NOTE: POOR AUDIO. REASON FOR ADMISSION: This is one of several admissions to [facility] for this 78-year-old patient because of septic shock secondary to infection in the left lower extremity. HISTORY OF PRESENT ILLNESS: The patient is a resident of an extended care facility where he has been in stable condition over the last several years. He is known to have several chronic medical syndrome, but has been stable on his current medication admission. He pain in his left lower extremity, which was amputated many years ago below the ankle joint. However, he did not report the pain and continued with regular activities of daily living until the day prior to admission he informed that he has pain in his left lower extremity, was found to have fever of 101.8. He was transferred to [facility] ER where intense cellulitis of the lower 2/3 of the tibia were noted. The patient developed at that time hypotension and tachycardia. He received volume replacement and was placed on pressure support of Levophed and received vancomycin, amikacin, and ertapenem. PAST MEDICAL HISTORY: The patient had peripheral vascular disease that led to amputation of both feet, motility disorder, high blood pressure, diabetes mellitus, vitamin D deficiency. MEDICATIONS: The patient has been on metformin 500 mg b.i.d., linagliptin 5 mg daily, vitamin D 5000 units daily, atorvastatin 10 mg daily, aspirin 81 mg daily. ALLERGIES: No known drug allergies. FAMILY HISTORY: Noncontributory. SOCIAL HISTORY: He is single. He was born in [place] for many years. 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 HABITS: The patient has smoking of 1 pack history of more than 40 years. He denies drinking. He denies use of illicit drugs. REVIEW OF SYSTEMS: CARDIOVASCULAR: The patient denied any chest pain, shortness of breath, palpitations, or dizziness. PULMONARY: The patient denied any cough, wheezing, or expectoration. GASTROINTESTINAL: His appetite is moderate. His weight is stable. He has no dysphagia or dyspepsia. He does have motility disorder him to take a p.r.n. medication. He takes Dulcolax or senna. GENITOURINARY: The patient denies any dysuria or frequency. He does have some incontinence. He has nocturia . JOINTS: Denies any pain, swelling, stiffness, cold extremities, photosensitivity, dry eyes, or alopecia. CENTRAL NERVOUS SYSTEM: His sleep is of good quality. No numbness, tingling, seizure disorder, and has no headache. PHYSICAL EXAMINATION: VITAL SIGNS: Blood pressure is 123/63, his pulse is 79, respirations are 11, temperature 97.8. HEENT: Eyes were normal. Pupils were round, equal, and reactive to light. Sclerae were white. Conjunctivae were pink. Extraocular movements were normal. Temporal arteries were palpable bilaterally. There was no bilateral temporal wasting. Visual fan to confrontation were normal. Neglect sign was negative. ENT, mucous membranes were not dehydrated. Auditory canals were clear and tympanic membranes could not be visualized. Nasal cavity was not congested. Nasal septum was intact. Soft palate was free of ulcerations. Pharynx was clear from exudate or tonsillar hypertrophy. Uvula danial to phonation. Tongue was moist, midline, and normally papillated. NECK: Supple. There was no goiter. No mass. No lymphadenopathy. There was no JVD. No bruits. Carotid upstroke was 2+. LUNGS: Clear. HEART: PMI was at fifth left intercostal space in midclavicular line. There was normal S1 and normal S2. There was no murmur. No arrhythmia. No S3. No S4. No pericardial rub. ABDOMEN: Soft and nontender without organomegaly. There were no masses palpable. Normal bowel sounds without bruits. There was no guarding. No rebound tenderness. No ascites. No hernia. No CVA tenderness. Liver span was 8 cm, mostly nontender. EXTREMITIES: No cyanosis or clubbing. There was 3+ edema in the left lower extremity from the amputee territory up to 2/3 of the tibia. The residual foot was warm and tender with fluctuation sign. The foot was normal temperature without tenderness and without fluctuation site. LABORATORY AND DIAGNOSTIC DATA: Hemoglobin is 8.0, hematocrit 25.7, MCV of 89, WBC of 26.1, and platelets is 214,000. His BUN and creatinine are 66 and 0.3 respectively. His sodium is 133, potassium 4.3, chloride 105, and CO2 is 19. His glucose is 114. His uric acid is 10.1. His calcium is 7.7. His phosphorus is 4.4. Magnesium is 2.1. His TIBC is 163 and saturation was 4, ferritin was 123. SGOT, SGPT, and alkaline phosphatase were normal. Triglyceride 264, total cholesterol was 138, LDL was 76, and HDL was 10. Vitamin D . His TSH was 9.64. His urine was negative with 5 to 10 WBC per high-power field and 0 to 2 RBC per high-power field. His INR was 1.1 and PTT was 36. His ABG was pH 7.24, pCO2 was 42, pO2 was 91, bicarbonate 18, and O2 saturation was 96. His chest x-ray revealed mild pulmonary congestion. His foot x-ray shows soft tissue ulceration the foot was otherwise normal. His 2D echo shows . His ejection fraction was 50% to 55%, no evidence of pericardial effusion, and mitral regurgitation . His chest x-ray show cardiomegaly, but no lung infiltrate. cyst to the right kidney. IMPRESSION: Sepsis associated with cellulitis of the left lower extremity. PLAN: Multiple consultants were called to assist in the management of this case. Nephrology, Pulmonary, and Infectious Disease will be called. Repeat laboratory tests will be done in the a.m. The case will be discussed with Infectious Disease. We will start antibiotics. Ayush Chang M.D. DR: TOREY JOB#: [id number] CC:
--- NOTE | 2018-12-13 06:00 | NUR ---
NURSE NOTES: Pt's resting in bed, asleep, with eyes closed, in no acute distress. VS stable. Will continue to monitor.
[2018-12-13 06:02] LABS: PHOSPHORUS 3.2 MG/DL (2.5-4.9)
[2018-12-13] MEDS: NovoLOG Insulin Flexpen SUBQ SCH ×4 (06:28→20:46)
--- NOTE | 2018-12-13 07:10 | NUR ---
NURSE NOTES: Received pt from BENJAMIN Motta. patient is drowsy, but able to make needs known. A/Ox1-2. Primarily speaks Afghan. 2LNC, bilateral breath sounds diminished. Patient has a LFA 20G and RH 22G and right femoral TLC. Right femoral TLC running D5NS@75ml/hr. FC draining cloudy yellow urine to gravity. Abdomen is round and slightly firm but non-tender. Bed locked, alarmed and in lowest position. Will continue plan of care.
--- NOTE | 2018-12-13 07:20 | NUR ---
HAND-OFF: Report given to BENJAMIN Leach.
[2018-12-13] MEDS: Heparin 5000 units/ml inj SUBQ SCH ×2 (09:00→20:27)
--- NOTE | 2018-12-13 09:10 | NUR ---
NURSE NOTES: Held heparin and wasted witnessed by BENJAMIN Venegas. Patient noted to be bleeding from left below ankle stump.
[2018-12-13] MEDS: Pantoprazole Inj IVP SCH ×2 (09:33→20:26)
[2018-12-13] MEDS: Docusate 100mg cap ORAL SCH ×3 (09:33→17:59)
--- NOTE | 2018-12-13 09:37 | NUR ---
NURSE NOTES: Malodorous purulent drainage oozing out of left below ankle stump. Wound culture collected and sent to lab. Washed area with soap and water and applied 4x4 gauze, ABD pad and Kerlex. Will notify
[2018-12-13] MEDS ORDERED: Iron Sucrose 200 MG in NS 110 ML IV ONE (11:00)
--- NOTE | 2018-12-13 11:19 | NUR ---
NURSE NOTES: Pt c/o of left foot pain 09/30, morphine IVP given as per ordered.
--- NOTE | 2018-12-13 11:23 | Nephrology Progress Note ---
Assessment/Plan Problem List: (1) Altered mental status (2) UTI (urinary tract infection) (3) Sepsis (4) Hypotension Assessment: shock Assessment Septic shock- was on pressors , now is off Diabetic nephropathy CKD Anemia s/p foot and LE amputations Plan Avoid nephrotoxics urine studies 2D echo Left ventricular ejection fraction estimated to be 55-60 %. Kidney TELLO noted keep BP and BS in check Anemia daley per orders Subjective ROS Limited/Unobtainable: No Constitutional: Reports: malaise, weakness Objective Objective Last 24 Hour Vital Signs Date Time Temp Pulse Resp B/P (MAP) Pulse Ox O2 Delivery O2 Flow Rate FiO2 12/13/18 08:00 Nasal Cannula 2.0 12/13/18 07:00 89 13 137/52 (80) 100 12/13/18 06:00 85 13 139/51 (80) 100 12/13/18 05:00 90 14 140/55 (83) 100 12/13/18 04:00 98.5 90 14 144/55 (84) 100 12/13/18 04:00 Nasal Cannula 3.0 12/13/18 04:00 89 12/13/18 03:00 85 14 132/61 (84) 100 12/13/18 02:00 87 15 144/46 (78) 99 12/13/18 01:00 92 15 135/62 (86) 99 12/13/18 00:00 Nasal Cannula 3.0 12/13/18 00:00 90 12/13/18 00:00 92 16 150/53 (85) 99 12/12/18 23:00 89 14 136/54 (81) 99 12/12/18 22:00 89 12 137/68 (91) 99 12/12/18 21:00 86 11 140/52 (81) 99 12/12/18 20:30 88 13 137/48 (77) 99 12/12/18 20:00 Nasal Cannula 3.0 12/12/18 20:00 89 12/12/18 20:00 97.8 86 11 135/56 (82) 99 12/12/18 19:00 76 16 100 Nasal Cannula 2.0 28 12/12/18 19:00 100 Nasal Cannula 2.0 28 12/12/18 19:00 83 10 134/49 (77) 100 12/12/18 18:30 88 17 142/54 (83) 99 12/12/18 18:00 83 10 124/52 (76) 100 12/12/18 17:30 83 13 130/59 (82) 100 12/12/18 17:00 79 14 130/52 (78) 100 12/12/18 16:30 78 15 124/61 (82) 100 12/12/18 16:00 97.7 78 10 130/48 (75) 100 12/12/18 16:00 79 12/12/18 16:00 Nasal Cannula 3.0 12/12/18 15:00 79 13 128/49 (75) 100 12/12/18 14:00 78 9 127/47 (73) 100 12/12/18 13:41 100 Nasal Cannula 2.0 28 12/12/18 13:41 81 14 100 Nasal Cannula 2.0 28 12/12/18 13:00 80 12 130/46 (74) 100 12/12/18 12:00 81 12/12/18 12:00 98.1 78 11 117/45 (69) 100 12/12/18 12:00 Nasal Cannula 3.0 12/12/18 11:30 79 12 130/50 (76) 99 Intake and Output 12/12/18 12/13/18 18:59 06:59 Intake Total 825 ml 1055 ml Output Total 330 ml 360 ml Balance 495 ml 695 ml Intake Oral 100 ml IV Total 825 ml 955 ml Output Urine Total 330 ml 360 ml # Bowel Movements 1 Laboratory Tests 12/12/18 20:00: Random Vancomycin Level 12.9 12/13/18 05:00: White Blood Count 23.3*H, Red Blood Count 2.90L, Hemoglobin 7.9L, Hematocrit 25.6L, Mean Corpuscular Volume 88, Mean Corpuscular Hemoglobin 27.3, Mean Corpuscular Hemoglobin Concent 31.0L, Red Cell Distribution Width 14.6, Platelet Count 218, Mean Platelet Volume 6.9, Neutrophils (%) (Auto) , Lymphocytes (%) (Auto) , Monocytes (%) (Auto) , Eosinophils (%) (Auto) , Basophils (%) (Auto) , Differential Total Cells Counted 100, Neutrophils % ( Manual) 88H, Lymphocytes % (Manual) 6L, Monocytes % (Manual) 5, Eosinophils % ( Manual) 1, Basophils % (Manual) 0, Band Neutrophils 0, Platelet Estimate Adequate, Platelet Morphology Normal, Hypochromasia 1+, Anisocytosis 1+, Erythrocyte Sedimentation Rate 131H, Reticulocyte Count 0.5, Sodium Level 139, Potassium Level 4.2, Chloride Level 109H, Carbon Dioxide Level 18L, Anion Gap 12 , Blood Urea Nitrogen 63H, Creatinine 2.8H, Estimat Glomerular Filtration Rate , Glucose Level 156H, Hemoglobin A1c 6.8H, Calcium Level 8.3L, Phosphorus Level 3.2, Magnesium Level 2.1, Total Bilirubin 0.3, Aspartate Amino Transf (AST/SGOT ) 27, Alanine Aminotransferase (ALT/SGPT) 13, Alkaline Phosphatase 136H, Lactate Dehydrogenase 160, C-Reactive Protein, Quantitative 34.3H, Pro-B-Type Natriuretic Peptide 9822H, Total Protein 7.1, Albumin 2.0L, Globulin 5.1, Albumin/Globulin Ratio 0.4L, Vitamin D 25-Hydroxy [Pending], 25-Hydroxy Vitamin D2 [Pending], 25-Hydroxy Vitamin D3 [Pending], Random Amikacin Level 9.7 12/13/18 08:55: Arterial Blood pH 7.257L, Arterial Blood Partial Pressure CO2 43.1, Arterial Blood Partial Pressure O2 105.0H, Arterial Blood HCO3 18.8L, Arterial Blood Oxygen Saturation 97.6, Arterial Blood Base Excess -7.8L, Kristian Test Positive Height (Feet): 5 Height (Inches): 6.00 Weight (Pounds): 185 General Appearance: mild distress, agitated Respiratory/Chest: decreased breath sounds Abdomen: distended Naveed Vanegas MD Dec 13, 2018 11:23
--- NOTE | 2018-12-13 11:40 | Consultation ---
History of Present Illness General Date patient seen: Dec 13, 2018 Chief Complaint: Altered Mental Status Reason for Consultation: Sepsis Present Illness HPI Mr. Gonzalez is an 78 yo male with PMHx of DM, HTN , PVP s/p B/L Mid foot amps who presented to the ED on 12/11/18 with left foot infection. He reports that he has had pain in his left foot for 3 days with swelling and erythema. [facility] which prompted his admit. He has had WBCs of 26 and fever up to 102. Bllod Cx growing strep., he was admitted to the ICU for pressor suport. ID was consulted for sepsis PMHx/PSHx DM HTN PVP s/p B/L Mid foot amps SocHx Active smoker No E/D FamHx Not Contributory Allergies: Coded Allergies: PENICILLINS (Verified Allergy, Unknown, 12/11/18) Medication History Scheduled Amlodipine Besylate (Norvasc), 10 MG ORAL DAILY, (Reported) Atorvastatin Calcium* (Atorvastatin Calcium*), 10 MG ORAL BEDTIME, (Reported) Calcium Carbonate (Calcium Carbonate), 600 MG PO DAILY, (Reported) Docusate Sodium* (Colace*), 100 MG ORAL DAILY, (Reported) Furosemide* (Lasix*), 20 MG ORAL DAILY, (Reported) Gabapentin (Neurontin), 300 MG ORAL THREE TIMES A DAY, (Reported) Gemfibrozil (Gemfibrozil), 600 MG PO BID, (Reported) Hydralazine HCl (Hydralazine HCl), 25 MG PO TID, (Reported) Metoprolol Tartrate* (Metoprolol Tartrate*), 50 MG ORAL EVERY 12 HOURS, ( Reported) Omeprazole (Omeprazole), 20 MG ORAL DAILY, (Reported) Pioglitazone Hcl* (Actos*), 15 MG ORAL DAILY, (Reported) Scheduled PRN Tramadol Hcl (Tramadol Hcl), 50 MG ORAL Q4HR PRN for For Pain, (Reported) Miscellaneous Medications Alendronate Sodium (Alendronate Sodium), 70 MG PO, (Reported) Bisacodyl (Dulcolax), 10 MG RC, (Reported) Patient History Healthcare decision maker Resuscitation status Full Code Advanced Directive on File No Review of Systems ROS Narrative 12 point ROS negative except as noted in the HPI Physical Exam Last 24 Hour Vital Signs Date Time Temp Pulse Resp B/P (MAP) Pulse Ox O2 Delivery O2 Flow Rate FiO2 12/13/18 08:00 Nasal Cannula 2.0 12/13/18 07:00 89 13 137/52 (80) 100 12/13/18 06:00 85 13 139/51 (80) 100 12/13/18 05:00 90 14 140/55 (83) 100 12/13/18 04:00 98.5 90 14 144/55 (84) 100 12/13/18 04:00 Nasal Cannula 3.0 12/13/18 04:00 89 12/13/18 03:00 85 14 132/61 (84) 100 12/13/18 02:00 87 15 144/46 (78) 99 12/13/18 01:00 92 15 135/62 (86) 99 12/13/18 00:00 Nasal Cannula 3.0 12/13/18 00:00 90 12/13/18 00:00 92 16 150/53 (85) 99 12/12/18 23:00 89 14 136/54 (81) 99 12/12/18 22:00 89 12 137/68 (91) 99 12/12/18 21:00 86 11 140/52 (81) 99 12/12/18 20:30 88 13 137/48 (77) 99 12/12/18 20:00 Nasal Cannula 3.0 12/12/18 20:00 89 12/12/18 20:00 97.8 86 11 135/56 (82) 99 12/12/18 19:00 76 16 100 Nasal Cannula 2.0 28 12/12/18 19:00 100 Nasal Cannula 2.0 28 12/12/18 19:00 83 10 134/49 (77) 100 12/12/18 18:30 88 17 142/54 (83) 99 12/12/18 18:00 83 10 124/52 (76) 100 12/12/18 17:30 83 13 130/59 (82) 100 12/12/18 17:00 79 14 130/52 (78) 100 12/12/18 16:30 78 15 124/61 (82) 100 12/12/18 16:00 97.7 78 10 130/48 (75) 100 12/12/18 16:00 79 12/12/18 16:00 Nasal Cannula 3.0 12/12/18 15:00 79 13 128/49 (75) 100 12/12/18 14:00 78 9 127/47 (73) 100 12/12/18 13:41 100 Nasal Cannula 2.0 28 12/12/18 13:41 81 14 100 Nasal Cannula 2.0 28 12/12/18 13:00 80 12 130/46 (74) 100 12/12/18 12:00 81 12/12/18 12:00 98.1 78 11 117/45 (69) 100 12/12/18 12:00 Nasal Cannula 3.0 Intake and Output 12/12/18 12/13/18 18:59 06:59 Intake Total 825 ml 1055 ml Output Total 330 ml 360 ml Balance 495 ml 695 ml Intake Oral 100 ml IV Total 825 ml 955 ml Output Urine Total 330 ml 360 ml # Bowel Movements 1 Laboratory Tests Test 12/12/18 20:00 12/13/18 05:00 12/13/18 08:55 Random Vancomycin Level 12.9 ug/mL White Blood Count 23.3 K/UL (4.8-10.8) *H Red Blood Count 2.90 M/UL (4.70-6.10) L Hemoglobin 7.9 G/DL (14.2-18.0) L Hematocrit 25.6 % (42.0-52.0) L Mean Corpuscular Volume 88 FL (80-99) Mean Corpuscular Hemoglobin 27.3 PG (27.0-31.0) Mean Corpuscular Hemoglobin Concent 31.0 G/DL (32.0-36.0) L Red Cell Distribution Width 14.6 % (11.6-14.8) Platelet Count 218 K/UL (150-450) Mean Platelet Volume 6.9 FL (6.5-10.1) Neutrophils (%) (Auto) % (45.0-75.0) Lymphocytes (%) (Auto) % (20.0-45.0) Monocytes (%) (Auto) % (1.0-10.0) Eosinophils (%) (Auto) % (0.0-3.0) Basophils (%) (Auto) % (0.0-2.0) Differential Total Cells Counted 100 Neutrophils % (Manual) 88 % (45-75) H Lymphocytes % (Manual) 6 % (20-45) L Monocytes % (Manual) 5 % (1-10) Eosinophils % (Manual) 1 % (0-3) Basophils % (Manual) 0 % (0-2) Band Neutrophils 0 % (0-8) Platelet Estimate Adequate Platelet Morphology Normal Hypochromasia 1+ Anisocytosis 1+ Erythrocyte Sedimentation Rate 131 MM/HR (0-20) H Reticulocyte Count 0.5 % (0.5-2.0) Sodium Level 139 MMOL/L (136-145) Potassium Level 4.2 MMOL/L (3.5-5.1) Chloride Level 109 MMOL/L (98-107) H Carbon Dioxide Level 18 MMOL/L (21-32) L Anion Gap 12 mmol/L (5-15) Blood Urea Nitrogen 63 mg/dL (7-18) H Creatinine 2.8 MG/DL (0.55-1.30) H Estimat Glomerular Filtration Rate mL/min (>60) Glucose Level 156 MG/DL (74-106) H Hemoglobin A1c 6.8 % (4.3-6.0) H Calcium Level 8.3 MG/DL (8.5-10.1) L Phosphorus Level 3.2 MG/DL (2.5-4.9) Magnesium Level 2.1 MG/DL (1.8-2.4) Total Bilirubin 0.3 MG/DL (0.2-1.0) Aspartate Amino Transf (AST/SGOT) 27 U/L (15-37) Alanine Aminotransferase (ALT/SGPT) 13 U/L (12-78) Alkaline Phosphatase 136 U/L (46-116) H Lactate Dehydrogenase 160 U/L (81-234) C-Reactive Protein, Quantitative 34.3 mg/dL (0.00-0.90) H Pro-B-Type Natriuretic Peptide 9822 pg/mL (0-125) H Total Protein 7.1 G/DL (6.4-8.2) Albumin 2.0 G/DL (3.4-5.0) L Globulin 5.1 g/dL Albumin/Globulin Ratio 0.4 (1.0-2.7) L Vitamin D 25-Hydroxy Pending 25-Hydroxy Vitamin D2 Pending 25-Hydroxy Vitamin D3 Pending Random Amikacin Level 9.7 ug/mL Arterial Blood pH 7.257 (7.350-7.450) Arterial Blood Partial Pressure CO2 43.1 mmHg (35.0-45.0) Arterial Blood Partial Pressure O2 105.0 mmHg (75.0-100.0) H Arterial Blood HCO3 18.8 mmol/L (22.0-26.0) L Arterial Blood Oxygen Saturation 97.6 % (95-100) Arterial Blood Base Excess -7.8 (-2-2) L Kristian Test Positive Height (Feet): 5 Height (Inches): 6.00 Weight (Pounds): 185 Medications Current Medications Medications (Trade) Dose Ordered Sig/Cammy Route PRN Reason Start Time Stop Time Status Last Admin Dose Admin Acetaminophen (Tylenol) 650 mg Q4H PRN ORAL T>100.5 12/11/18 17:45 01/10/19 17:44 Albuterol/ Ipratropium (Albuterol/ Ipratropium) 3 ml Q4H PRN HHN Shortness of Breath 12/11/18 17:45 12/16/18 17:44 Amikacin Protocol (Amikacin pharmacy to dose) 1 ea DAILY PRN MISC . 12/11/18 19:15 01/10/19 19:14 Chlorhexidine Gluconate (Yi-Hex 2%) 1 applic DAILY@2000 TOPIC 12/11/18 20:00 01/10/19 19:59 12/12/18 20:30 Dextrose (Dextrose 50%) 25 ml Q30M PRN IV Hypoglycemia 12/12/18 17:15 01/11/19 17:14 Dextrose (Dextrose 50%) 50 ml Q30M PRN IV Hypoglycemia 12/12/18 17:15 01/11/19 17:14 Dextrose/Sodium Chloride 1,000 ml @ 75 mls/hr [id number] IV 12/12/18 10:15 01/11/19 10:14 12/13/18 00:03 Docusate Sodium (Colace) 100 mg THREE TIMES A DAY ORAL 12/12/18 13:00 01/11/19 12:59 12/13/18 09:33 Epoetin William (Procrit (for non ESRD use)) 10,000 units MON-WED-FRI SUBQ 12/14/18 21:00 01/13/19 20:59 Ertapenem 0.5 gm/ Sodium Chloride 55 ml @ 110 mls/hr Q24H IV 12/12/18 20:00 12/17/18 19:59 12/12/18 20:29 Ferrous Sulfate (Feosol) 325 mg THREE TIMES A DAY ORAL 12/12/18 18:00 01/11/19 17:59 12/13/18 09:33 Heparin Sodium (Porcine) (Heparin 5000 units/ml) 5,000 units EVERY 12 HOURS SUBQ 12/11/18 21:00 01/10/19 20:59 12/12/18 20:32 Insulin Aspart (NovoLOG) BEFORE MEALS AND HS SUBQ 12/12/18 21:00 01/11/19 20:59 12/13/18 06:28 Iron Sucrose 200 mg/Sodium Chloride 120 ml @ 240 mls/hr ONCE ONCE IV 12/13/18 11:00 12/13/18 11:29 12/13/18 11:15 Morphine Sulfate (Morphine Sulfate) 2 mg Q4H PRN IVP Severe Pain (Pain Scale 7-10) 12/11/18 17:45 12/18/18 17:44 12/13/18 11:14 Norepinephrine Bitartrate 4 mg/ Dextrose 254 ml @ 0 mls/hr Q24H IV 12/11/18 19:01 01/10/19 19:00 12/11/18 20:19 Ondansetron HCl (Zofran) 4 mg Q6H PRN IVP Nausea & Vomiting 12/11/18 17:45 01/10/19 17:44 Pantoprazole (Protonix) 40 mg Q12HR IVP 12/12/18 21:00 01/11/19 08:59 12/13/18 09:33 Polyethylene Glycol (Miralax) 17 gm DAILYPRN PRN ORAL Constipation 12/11/18 17:45 01/10/19 17:44 Vancomycin HCl (Vanco rx to dose) 1 ea DAILY PRN MISC . 12/11/18 18:00 01/10/19 17:59 Objective Narrative Gen: NAD HEENT: NCAT, MMM, EOMI, PERRL, No Oral lesion, no scleral icterus NECK: full range of motion, supple, no meningismus, No LAD, No JVD LUNGS: CTAB, No W/C, No Accessory muscle use CARDS: RRR, S1, S2, No M/R/G, ABD: Soft, NT, ND, No R/G, + BS, No HSM, No Masses : Deferred Ext: C/C/E, Pulses 2+ B/L (DP, Rad): Left foot stump with erythema and swelling. 2-3 cm lesion present with drainage. Right foot stump no swelling or erythema NEURO: A/O x 4, Strength and Sensation Grossly intact PSYCH: Normal mood and affect SKIN: Warm/dry, No rashes Assessment/Plan Assessment/Plan: 78 yo male with PMHx of DM, HTN , PVP s/p B/L Mid foot amps who presented to the ED on 12/11/18 with left foot infection. Sepsic shock - resolved Left foot infection Cellulits need to r/o OM Foot X-ray 12/11/18 - Possible small focus of soft tissue ulceration or air at the anterior lateral aspect of the stump, clinically correlate. No definite appearing acute osseous destruction or periosteal reaction identified. Fever to 102 - Resolved Leukocytosis Septicemia =- Likely from foot infection Blood Cx 12/11/18 - Grp B strep Blood Cx 12/13/18 - Pend TTE - No veg DM HTN PVP s/p B/L Mid foot amps PLAN - Continue Vancomycin #2 and Ertapenem #2 - 12/13/18 S/P Amikacin #2 - f/u wound Cx - Repeat blood Cx - Bone scan for OM left foot - recommend podiatry consult - Monitor CBC and Temps Thank you for this consult. [facility] will continue to follow the patient with you during this hospitalization. John Perales MD Dec 13, 2018 11:40
[2018-12-13] MEDS ORDERED: ceFAZolin 1gm/50ml Premix 50 ML IV SCH (13:00)
--- NOTE | 2018-12-13 13:14 | NUR ---
NURSE NOTES: Patient is asleep, no signs of distress noted. Too drowsy to take colace, held at this time. BS 152 mg/dl, 3 units given as per ordered.
--- NOTE | 2018-12-13 16:00 | NUR ---
NURSE NOTES: Encouraged patient to eat, but patient refused. Said he wants soup but his diet doesn't allow him according to hospital policy. Notified Dr. Chang, received orders for Nepro TID with meals.
--- NOTE | 2018-12-13 17:36 | Cardiology Report ---
APPROVED REPORT EKG Measurement Heart [id number] Normal sinus rhythm Possible Anterior infarct, age undetermined Abnormal ECG
--- NOTE | 2018-12-13 19:30 | NUR ---
HAND-OFF: Report given to BENJAMIN Hernandez.
--- NOTE | 2018-12-13 19:35 | NUR ---
NURSE NOTES: Received pt from BENJAMIN Leach. Patient in bed resting, awake alert able to verbalize needs to staff. Previous nurse gave Morphine after receiving morphine patient complained of itchiness, no rashes. waiting for Dr. Chang to return call. Patient noted with dressing on Left foot amputee open blister. elevated with pillow. 2LNC, bilateral breath sounds diminished. Temp 98.5 oral. Patient has a LFA 20G and RH 22G and right femoral TLC. Right femoral TLC running D5NS@75ml/hr. FC draining cloudy yellow urine to gravity. Abdomen is round and slightly firm but non-tender. Instructed patient to use call light for assistance. Bed locked, alarmed and in lowest position. Will continue plan of care.
[2018-12-13] MEDS ORDERED: traMADol 50mg tab ORAL PRN (19:45)
--- NOTE | 2018-12-13 19:50 | NUR ---
NURSE NOTES: Seen and examined by Dr. Chang with new order D/C Morphine, changed to tramadol, Benadryl 25mg tab PO Q6 hour PRN itchiness noted and carried out.
[2018-12-13] MEDS ORDERED: Ertapenem 0.5 GM in NS 55 ML IVPB SCH (20:00)
--- NOTE | 2018-12-13 20:10 | NUR ---
HAND-OFF: Report given to Gerald ALEXANDER.
--- NOTE | 2018-12-13 20:12 | NUR ---
NURSE NOTES: Received pt from BENJAMIN Hernandez. Pt is resting on the bed and awake and forgetful but able to needs to known by verbally. O O2 2L via nasal cannula and SaO2 99% noted. On Tele monitor with SR. Iv site intact and no sign of infiltration noted. Pt has Rt. femoral TLC and dressing is clean and dry and running D5NS@75ml/hr. Dressing is clean and dry on Lt foot area. Pt has Lyles cath and patent and daining cloudy yellow urine to gravity. Changed position. Placed fall precaution. Will continue to care plan.
[2018-12-13] MEDS: Dyna-Hex 2% Top Sol 2oz TOPIC SCH (20:24)
--- NOTE | 2018-12-13 22:00 | NUR ---
NURSE NOTES: Pt is sleeping on the bed and no sign of acute distress noted. Changed position. SaO2 99% with O2 2L via nasal cannula. Will continue to monitor any change of condition.
[2018-12-14] VITALS (20 sets, daily range): BP systolic 136–183; BP diastolic 46–117
--- NOTE | 2018-12-14 | NUR ---
NURSE NOTES: Pt is sleeping on the bed and no sign of acute distress noted. On Tele monitor with SR. Denied pain at this time. Dressing is clean and dry on Lt. foot stump area. Will continue to monitor any change of condition.
--- NOTE | 2018-12-14 02:00 | NUR ---
NURSE NOTES: Pt is sleeping on the bed and no sign of acute distress noted. On O2 2L via nasal cannula and SaO2 99% noted. Changed position. Placed fall precaution. Will continue to monitor any change of condition.
[2018-12-14] MEDS: D5NS 1,000 ML IV SCH ×3 (02:23→18:41)
--- NOTE | 2018-12-14 04:00 | NUR ---
NURSE NOTES: Morning care was done. changed position. Placed fall precaution. Will continue to care plan.
--- NOTE | 2018-12-14 05:00 | Progress Note ---
DATE: 12/13/2018 NOTE: POOR AUDIO SUBJECTIVE: The patient developed pruritus following morphine injection and from the area of amputation. PHYSICAL EXAMINATION: VITAL SIGNS: Blood pressure is 138/55, pulse 88 respirations were 15, temperature 99. HEENT: Eyes were normal. ENT, mucous membranes were moist and intact. NECK: Supple with no JVD without lymph nodes. LUNGS: Clear. HEART: Normal sounds with regular beats. There is no tachycardia at rest. ABDOMEN: Soft and nontender with normal bowel sounds. Abdomen is obese. EXTREMITIES: Warm without cyanosis, clubbing, or edema. LABORATORY AND DIAGNOSTIC DATA: Hemoglobin is 7.9, hematocrit 25.3 with MCV of 88, WBC of 23,000, platelets is 218. . Reticulocyte count is 0.5. BUN and creatinine is 63 and 2.8 respectively. . Sodium is 139, potassium 4.2, chloride 100, CO2 is 18, glucose is 156. A1c is 6.8. Ultrasound , but the procedure was not done as of yet. IMPRESSION: The patient's condition is improving 500 mg IV piggyback q.24 h. I started him on vancomycin being awaited. Complete laboratory tests will be done in the morning. Ayush Chang M.D. DR: Scottie JOB#: [id number] CC:
[2018-12-14 05:08] LABS: MEAN CORPUSCULAR VOLUME 88 FL (80-99); PLATELET COUNT 232 K/UL (150-450); RED BLOOD COUNT 2.95 M/UL (4.70-6.10); RED CELL DISTRIBUTION WIDTH 14.7 % (11.6-14.8); WHITE BLOOD COUNT 19.4 K/UL (4.8-10.8)
[2018-12-14 05:22] LABS: ALANINE AMINOTRANSFERASE 10 U/L (12-78); ALBUMIN/GLOBULIN RATIO 0.4 (1.0-2.7); ALKALINE PHOSPHATASE 219 U/L (46-116); ANION GAP 9 mmol/L (5-15); ASPARTATE AMINO TRANSFERASE 25 U/L (15-37); BILIRUBIN,TOTAL 0.3 MG/DL (0.2-1.0); BLOOD UREA NITROGEN 52 mg/dL (7-18); CARBON DIOXIDE 21 MMOL/L (21-32); CHLORIDE 115 MMOL/L (98-107); CREATININE 2.4 MG/DL (0.55-1.30); SODIUM 145 MMOL/L (136-145)
[2018-12-14 05:42] LABS: PHOSPHORUS 2.7 MG/DL (2.5-4.9)
--- NOTE | 2018-12-14 06:00 | NUR ---
NURSE NOTES: Pt is sleeping on the bed and no sign of acute distress noted. V/S is stable. Checked SaO2 100% with O2 2L via nasal cannula. Keep Lyles cath and urinated well. Changed position. Will continue to monitor any change of condition.
[2018-12-14] MEDS: NovoLOG Insulin Flexpen SUBQ SCH ×4 (06:16→21:29)
--- NOTE | 2018-12-14 07:00 | NUR ---
HAND-OFF: Report given to BENJAMIN Lopez. Pt is resting on the bed and no sign of acute distress noted.
[2018-12-14] MEDS ORDERED: Vancomycin 1.25gm/NS Premix IVPB ONE (08:00)
[2018-12-14] MEDS ORDERED: [UNRECOGNIZED DRUG - OTHER] IVPB ONE (08:00)
[2018-12-14] MEDS ORDERED: VANCOMYCIN IVPB ONE (08:00)
[2018-12-14] MEDS: Pantoprazole Inj IVP SCH ×2 (08:45→20:58)
[2018-12-14] MEDS: Docusate 100mg cap ORAL SCH ×3 (08:45→17:16)
[2018-12-14] MEDS: Heparin 5000 units/ml inj SUBQ SCH ×2 (08:46→21:05)
--- NOTE | 2018-12-14 09:30 | NUR ---
NURSE NOTES: Dr. 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 no verbal orders given at this time.
--- NOTE | 2018-12-14 09:32 | Pulmonolgy Critical Care Note ---
Critical Care - Asmt/Plan Problems: (1) Sepsis (2) UTI (urinary tract infection) (3) Altered mental status (4) Diabetes mellitus (5) History of hypertension (6) Hypotension Respiratory: monitor respiratory rate, adjust FIO2, CXR Cardiac: d/c campus monitor Renal: F/U I&O, keep IV fluid Infectious Disease: check cultures Gastrointestinal: continue feedings/current rate Endocrine: monitor blood sugar Hematologic: monitor H/H, transfuse if hgb<8.5 Neurologic: keep patient comfortable Affect: PRN ativan Prophylaxis: Heparin Time Spent (Minutes): 40 Notes Reviewed: vocational guidance counselor, renal Discussed with: nurses, consultants, gearcase assemblergovernment program manager - Objective Last 24 Hour Vital Signs Date Time Temp Pulse Resp B/P (MAP) Pulse Ox O2 Delivery O2 Flow Rate FiO2 12/14/18 08:00 95 12/14/18 07:05 100 16 140/46 (77) 100 12/14/18 06:51 86 16 98 Nasal Cannula 2.0 28 12/14/18 06:51 98 Nasal Cannula 2.0 28 12/14/18 06:00 94 16 156/56 (89) 100 12/14/18 05:00 97 16 154/54 (87) 99 12/14/18 04:00 Nasal Cannula 2.0 12/14/18 04:00 91 12/14/18 04:00 98.5 87 13 140/62 (88) 98 12/14/18 03:00 91 15 136/52 (80) 99 12/14/18 02:00 82 13 139/52 (81) 99 12/14/18 01:00 87 15 138/84 (102) 99 12/14/18 00:00 98.0 83 13 139/84 (102) 99 12/14/18 00:00 Nasal Cannula 2.0 12/14/18 00:00 86 12/13/18 23:00 79 12 146/57 (86) 99 12/13/18 22:00 80 12 146/49 (81) 100 12/13/18 21:00 83 14 140/54 (82) 99 12/13/18 20:00 85 12/13/18 20:00 98.2 86 13 145/49 (81) 99 12/13/18 20:00 Nasal Cannula 2.0 12/13/18 19:21 99 Nasal Cannula 2.0 28 12/13/18 19:21 88 15 99 Nasal Cannula 2.0 28 12/13/18 19:02 99.0 12/13/18 19:01 138/55 12/13/18 19:00 99.2 93 14 138/55 (82) 99 12/13/18 18:00 89 14 144/51 (82) 99 12/13/18 17:00 94 14 158/66 (96) 99 12/13/18 16:00 87 12/13/18 16:00 89 14 147/52 (83) 99 12/13/18 16:00 Nasal Cannula 2.0 12/13/18 15:00 89 14 139/53 (81) 99 12/13/18 14:00 89 14 136/55 (82) 99 12/13/18 13:00 88 18 128/51 (76) 99 12/13/18 12:00 Nasal Cannula 2.0 12/13/18 12:00 64 12/13/18 12:00 99.0 87 18 142/51 (81) 100 12/13/18 11:44 98.5 12/13/18 11:00 90 13 139/64 (89) 100 12/13/18 10:00 90 13 148/50 (82) 100 Status: awake Condition: critical Neck: full ROM Lungs: chest wall tender Heart: HR/BP stable Abdomen: soft Extremities: no C/C/E Micro: Microbiology Date/Time Source Procedure Growth Status 12/11/18 14:30 Blood Blood Culture - Preliminary Streptococcus Group B Staphylococcus Aureus Resulted 12/11/18 14:15 Blood Blood Culture - Preliminary Strep Agalactiae Group B Staphylococcus Aureus Resulted 12/13/18 09:50 Drainage Fluid Gram Stain - Final Resulted 12/13/18 09:50 Drainage Fluid Wound Culture Pending Resulted 12/11/18 15:29 Nasal Nares - Final Complete 12/11/18 15:29 Nasal Nares - Final Complete 12/11/18 14:55 Nasal Nares MRSA Culture - Final Staphylococcus Aureus - Mrsa Complete 12/11/18 14:39 Urine,Clean Catch Urine Culture - Final NO GROWTH AFTER 48 HOURS Complete 12/11/18 14:55 Rectum VRE Culture - Final NO VANCOMYCIN RESISTANT ENTEROCOCCUS ... Complete 12/11/18 14:55 Rectum - Final NO CARBAPENEM-RESISTANT ENTEROBACTERI... Complete Accucheck: 131 Critical Care - Subjective ROS Limited/Unobtainable: Yes Condition: critical EKG Rhythm: Sinus Rhythm FI02: 28 Sputum Amount: None I&O: Intake and Output 12/13/18 12/14/18 19:00 07:00 Intake Total 1200 ml 926 ml Output Total 785 ml 1310 ml Balance 415 ml -384 ml Intake Oral 300 ml 100 ml IV Total 900 ml 826 ml Output Urine Total 785 ml 1310 ml # Bowel Movements 1 CXR: mild congestion Labs: Laboratory Tests Test 12/14/18 04:00 White Blood Count 19.4 K/UL (4.8-10.8) H Red Blood Count 2.95 M/UL (4.70-6.10) L Hemoglobin 8.0 G/DL (14.2-18.0) L Hematocrit 26.0 % (42.0-52.0) L Mean Corpuscular Volume 88 FL (80-99) Mean Corpuscular Hemoglobin 27.1 PG (27.0-31.0) Mean Corpuscular Hemoglobin Concent 30.8 G/DL (32.0-36.0) L Red Cell Distribution Width 14.7 % (11.6-14.8) Platelet Count 232 K/UL (150-450) Mean Platelet Volume 7.5 FL (6.5-10.1) Neutrophils (%) (Auto) % (45.0-75.0) Lymphocytes (%) (Auto) % (20.0-45.0) Monocytes (%) (Auto) % (1.0-10.0) Eosinophils (%) (Auto) % (0.0-3.0) Basophils (%) (Auto) % (0.0-2.0) Differential Total Cells Counted 100 Neutrophils % (Manual) 83 % (45-75) H Lymphocytes % (Manual) 10 % (20-45) L Monocytes % (Manual) 6 % (1-10) Eosinophils % (Manual) 1 % (0-3) Basophils % (Manual) 0 % (0-2) Band Neutrophils 0 % (0-8) Platelet Estimate Adequate Platelet Morphology Normal Hypochromasia 1+ Anisocytosis 1+ Sodium Level 145 MMOL/L (136-145) Potassium Level 4.0 MMOL/L (3.5-5.1) Chloride Level 115 MMOL/L (98-107) H Carbon Dioxide Level 21 MMOL/L (21-32) Anion Gap 9 mmol/L (5-15) Blood Urea Nitrogen 52 mg/dL (7-18) H Creatinine 2.4 MG/DL (0.55-1.30) H Estimat Glomerular Filtration Rate mL/min (>60) Glucose Level 131 MG/DL (74-106) H Uric Acid 10.9 MG/DL (2.6-7.2) H Calcium Level 9.0 MG/DL (8.5-10.1) Phosphorus Level 2.7 MG/DL (2.5-4.9) Magnesium Level 2.1 MG/DL (1.8-2.4) Total Bilirubin 0.3 MG/DL (0.2-1.0) Aspartate Amino Transf (AST/SGOT) 25 U/L (15-37) Alanine Aminotransferase (ALT/SGPT) 10 U/L (12-78) L Alkaline Phosphatase 219 U/L (46-116) H C-Reactive Protein, Quantitative 33.7 mg/dL (0.00-0.90) H Pro-B-Type Natriuretic Peptide 9128 pg/mL (0-125) H Total Protein 7.0 G/DL (6.4-8.2) Albumin 2.0 G/DL (3.4-5.0) L Globulin 5.0 g/dL Albumin/Globulin Ratio 0.4 (1.0-2.7) L Random Vancomycin Level 17.4 ug/mL Karrie Crawford MD Dec 14, 2018 09:32
--- NOTE | 2018-12-14 10:00 | NUR ---
NURSE NOTES: Patient peripheral IV discontinued due to infiltration and leaking at insertions site. will continue plan of care.
--- NOTE | 2018-12-14 10:52 | NUR ---
*-* INSURANCE *-* ALL AVAILABLE CLINICALS AND REVIEW S HAVE BEEN FAXED TO: [employer] [facility]: CHELLE P:[phone] F:[phone] (FAX ALL CLINICALS) Addendum: 12/14/18 at 1109 by ITZEL DONALDSON CM REF# [id number]
--- NOTE | 2018-12-14 11:45 | NUR ---
NURSE NOTES: NURSE NOTES: Dr. Vanegas called to notify he will change orders for pain medication and added one dose allopurinol. no further orders given at this time.
--- NOTE | 2018-12-14 12:01 | NUR ---
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 102.0 HR 101 RR 24 B/P 101/52 4L NC O2 SAT 99% WBC 25.9 BANDS 25 BUN 69 CR 3.9 ALK PHOS 146 BNP 28379 PH 7.24 PCO2 42.4 PO2 91.0 HCO3 18.1 O2 SAT 96.5 IS: VANCO IVIV BOLUS CLINDAMYCIN PO IV BOLUS NS X 1 LITER ADMITTED TO ICU @ 1994 ICU STATUS DCP RETURN TO [facility]
--- NOTE | 2018-12-14 12:23 | Nephrology Progress Note ---
Assessment/Plan Problem List: (1) Renal failure (ARF), acute on chronic Assessment: Cr down to 2.4 (2) Altered mental status (3) UTI (urinary tract infection) (4) Sepsis (5) Hypotension Assessment: shock Assessment Septic shock- was on pressors , now is off Diabetic nephropathy CKD Anemia s/p foot and LE amputations Plan start Dilaudid for pain Avoid nephrotoxics urine studies 2D echo Left ventricular ejection fraction estimated to be 55-60 %. Kidney TELLO noted keep BP and BS in check Anemia daley per orders Subjective ROS Limited/Unobtainable: No Interval Events/Complaints complains of leg pain Constitutional: Reports: malaise Objective Objective Last 24 Hour Vital Signs Date Time Temp Pulse Resp B/P (MAP) Pulse Ox O2 Delivery O2 Flow Rate FiO2 12/14/18 11:00 100 15 161/75 (103) 100 12/14/18 10:00 106 18 183/65 (104) 98 12/14/18 09:00 103 19 158/70 (99) 100 12/14/18 08:00 99.1 102 17 137/104 (115) 100 12/14/18 08:00 95 12/14/18 07:05 100 16 140/46 (77) 100 12/14/18 06:51 86 16 98 Nasal Cannula 2.0 28 12/14/18 06:51 98 Nasal Cannula 2.0 28 12/14/18 06:00 94 16 156/56 (89) 100 12/14/18 05:00 97 16 154/54 (87) 99 12/14/18 04:00 Nasal Cannula 2.0 12/14/18 04:00 91 12/14/18 04:00 98.5 87 13 140/62 (88) 98 12/14/18 03:00 91 15 136/52 (80) 99 12/14/18 02:00 82 13 139/52 (81) 99 12/14/18 01:00 87 15 138/84 (102) 99 12/14/18 00:00 98.0 83 13 139/84 (102) 99 12/14/18 00:00 Nasal Cannula 2.0 12/14/18 00:00 86 12/13/18 23:00 79 12 146/57 (86) 99 12/13/18 22:00 80 12 146/49 (81) 100 12/13/18 21:00 83 14 140/54 (82) 99 12/13/18 20:00 85 12/13/18 20:00 98.2 86 13 145/49 (81) 99 12/13/18 20:00 Nasal Cannula 2.0 12/13/18 19:21 99 Nasal Cannula 2.0 28 12/13/18 19:21 88 15 99 Nasal Cannula 2.0 28 12/13/18 19:02 99.0 12/13/18 19:01 138/55 12/13/18 19:00 99.2 93 14 138/55 (82) 99 12/13/18 18:00 89 14 144/51 (82) 99 12/13/18 17:00 94 14 158/66 (96) 99 12/13/18 16:00 87 12/13/18 16:00 89 14 147/52 (83) 99 12/13/18 16:00 Nasal Cannula 2.0 12/13/18 15:00 89 14 139/53 (81) 99 12/13/18 14:00 89 14 136/55 (82) 99 12/13/18 13:00 88 18 128/51 (76) 99 Intake and Output 12/13/18 12/14/18 18:59 06:59 Intake Total 1000 ml 1126 ml Output Total 715 ml 1260 ml Balance 285 ml -134 ml Intake Oral 100 ml 300 ml IV Total 900 ml 826 ml Output Urine Total 715 ml 1260 ml # Bowel Movements 1 Laboratory Tests 12/14/18 04:00: White Blood Count 19.4H, Red Blood Count 2.95L, Hemoglobin 8.0L, Hematocrit 26.0L, Mean Corpuscular Volume 88, Mean Corpuscular Hemoglobin 27.1, Mean Corpuscular Hemoglobin Concent 30.8L, Red Cell Distribution Width 14.7, Platelet Count 232, Mean Platelet Volume 7.5, Neutrophils (%) (Auto) , Lymphocytes (%) (Auto) , Monocytes (%) (Auto) , Eosinophils (%) (Auto) , Basophils (%) (Auto) , Differential Total Cells Counted 100, Neutrophils % ( Manual) 83H, Lymphocytes % (Manual) 10L, Monocytes % (Manual) 6, Eosinophils % ( Manual) 1, Basophils % (Manual) 0, Band Neutrophils 0, Platelet Estimate Adequate, Platelet Morphology Normal, Hypochromasia 1+, Anisocytosis 1+, Sodium Level 145, Potassium Level 4.0, Chloride Level 115H, Carbon Dioxide Level 21, Anion Gap 9, Blood Urea Nitrogen 52H, Creatinine 2.4H, Estimat Glomerular Filtration Rate , Glucose Level 131H, Uric Acid 10.9H, Calcium Level 9.0, Phosphorus Level 2.7, Magnesium Level 2.1, Total Bilirubin 0.3, Aspartate Amino Transf (AST/SGOT) 25, Alanine Aminotransferase (ALT/SGPT) 10L, Alkaline Phosphatase 219H, C-Reactive Protein, Quantitative 33.7H, Pro-B-Type Natriuretic Peptide 9128H, Total Protein 7.0, Albumin 2.0L, Globulin 5.0, Albumin/Globulin Ratio 0.4L, Random Vancomycin Level 17.4 Height (Feet): 5 Height (Inches): 6.00 Weight (Pounds): 187 General Appearance: moderate distress Cardiovascular: tachycardia Respiratory/Chest: decreased breath sounds Abdomen: distended Naveed Vanegas MD Dec 14, 2018 12:23
[2018-12-14] MEDS ORDERED: DiphenhydrAMINE 50mg/ml Inj IVP PRN (12:30)
[2018-12-14] MEDS ORDERED: HYDROmorphone 1mg/ml Carpuject IVP PRN (12:30)
--- NOTE | 2018-12-14 14:46 | NUR ---
NM 3 Phase Bone scan complete.
--- NOTE | 2018-12-14 14:47 | NUR ---
NURSE NOTES: Patient tolerated bone scan well, he remained alert and calm throughout procedure, no pain or discomfort expressed, placed on 2L/min nasal cannula with saturations of 98-99%, returned to room 246-D and patient remains awake and alert to name and place, awaiting for result from done scan,
--- NOTE | 2018-12-14 15:22 | Consultation ---
History of Present Illness General Date patient seen: Dec 14, 2018 Chief Complaint: Altered Mental Status Reason for Consultation: Sepsis Present Illness HPI This is a 78 year old male with PMHx of DM, HTN , PVP s/p bilateral mid foot amputations who presented to the ED at [facility] with sepsis Reported to have pain in his left foot for 3 days with swelling and erythema. He had a fever in the shelter which prompted his evaluation. He had WBCs of 26 and fever up to 102. Blood Cx growing strep. He was admitted to the ICU for pressor support. Surgery called to evaluate and assist with care. Allergies: Coded Allergies: PENICILLINS (Verified Allergy, Unknown, 12/11/18) Medication History Scheduled Amlodipine Besylate (Norvasc), 10 MG ORAL DAILY, (Reported) Atorvastatin Calcium* (Atorvastatin Calcium*), 10 MG ORAL BEDTIME, (Reported) Calcium Carbonate (Calcium Carbonate), 600 MG PO DAILY, (Reported) Docusate Sodium* (Colace*), 100 MG ORAL DAILY, (Reported) Furosemide* (Lasix*), 20 MG ORAL DAILY, (Reported) Gabapentin (Neurontin), 300 MG ORAL THREE TIMES A DAY, (Reported) Gemfibrozil (Gemfibrozil), 600 MG PO BID, (Reported) Hydralazine HCl (Hydralazine HCl), 25 MG PO TID, (Reported) Metoprolol Tartrate* (Metoprolol Tartrate*), 50 MG ORAL EVERY 12 HOURS, ( Reported) Omeprazole (Omeprazole), 20 MG ORAL DAILY, (Reported) Pioglitazone Hcl* (Actos*), 15 MG ORAL DAILY, (Reported) Scheduled PRN Tramadol Hcl (Tramadol Hcl), 50 MG ORAL Q4HR PRN for For Pain, (Reported) Miscellaneous Medications Alendronate Sodium (Alendronate Sodium), 70 MG PO, (Reported) Bisacodyl (Dulcolax), 10 MG RC, (Reported) Patient History Limited by: medical condition History Provided By: Medical Record, PMD Healthcare decision maker Resuscitation status Full Code Advanced Directive on File No Past Medical/Surgical History Past Medical/Surgical History: (1) History of hypertension (2) Renal failure (ARF), acute on chronic (3) Sepsis (4) UTI (urinary tract infection) (5) Altered mental status (6) Hypotension (7) Diabetes mellitus (8) Hypertension Review of Systems ROS Narrative cannot obtain given medical condition Physical Exam General Appearance: mild distress Lines, tubes and drains: peripheral HEENT: atraumatic, anicteric, mucous membranes moist Neck: normal inspection Respiratory/Chest: no respiratory distress, no accessory muscle use, decreased breath sounds Cardiovascular/Chest: regular rhythm, tachycardia Abdomen: soft, no organomegaly, no mass Extremities: inflammation, other Skin Exam: warm/dry Neurologic: alert Last 24 Hour Vital Signs Date Time Temp Pulse Resp B/P (MAP) Pulse Ox O2 Delivery O2 Flow Rate FiO2 12/14/18 15:00 95 12 160/56 (90) 96 12/14/18 14:00 95 16 160/68 (98) 100 12/14/18 13:00 103 21 160/75 (103) 98 12/14/18 12:00 Nasal Cannula 2.0 12/14/18 12:00 98 12/14/18 12:00 98.6 102 20 158/65 (96) 100 12/14/18 11:00 100 15 161/75 (103) 100 12/14/18 10:00 106 18 183/65 (104) 98 12/14/18 09:00 103 19 158/70 (99) 100 12/14/18 08:00 Nasal Cannula 2.0 12/14/18 08:00 99.1 102 17 137/104 (115) 100 12/14/18 08:00 95 12/14/18 07:05 100 16 140/46 (77) 100 12/14/18 06:51 86 16 98 Nasal Cannula 2.0 28 12/14/18 06:51 98 Nasal Cannula 2.0 28 12/14/18 06:00 94 16 156/56 (89) 100 12/14/18 05:00 97 16 154/54 (87) 99 12/14/18 04:00 Nasal Cannula 2.0 12/14/18 04:00 91 12/14/18 04:00 98.5 87 13 140/62 (88) 98 12/14/18 03:00 91 15 136/52 (80) 99 12/14/18 02:00 82 13 139/52 (81) 99 12/14/18 01:00 87 15 138/84 (102) 99 12/14/18 00:00 98.0 83 13 139/84 (102) 99 12/14/18 00:00 Nasal Cannula 2.0 12/14/18 00:00 86 12/13/18 23:00 79 12 146/57 (86) 99 12/13/18 22:00 80 12 146/49 (81) 100 12/13/18 21:00 83 14 140/54 (82) 99 12/13/18 20:00 85 12/13/18 20:00 98.2 86 13 145/49 (81) 99 12/13/18 20:00 Nasal Cannula 2.0 12/13/18 19:21 99 Nasal Cannula 2.0 28 12/13/18 19:21 88 15 99 Nasal Cannula 2.0 28 12/13/18 19:02 99.0 12/13/18 19:01 138/55 12/13/18 19:00 99.2 93 14 138/55 (82) 99 12/13/18 18:00 89 14 144/51 (82) 99 12/13/18 17:00 94 14 158/66 (96) 99 12/13/18 16:00 87 12/13/18 16:00 89 14 147/52 (83) 99 12/13/18 16:00 Nasal Cannula 2.0 Intake and Output 12/13/18 12/14/18 18:59 06:59 Intake Total 1000 ml 1126 ml Output Total 715 ml 1260 ml Balance 285 ml -134 ml Intake Oral 100 ml 300 ml IV Total 900 ml 826 ml Output Urine Total 715 ml 1260 ml # Bowel Movements 1 Laboratory Tests Test 12/14/18 04:00 White Blood Count 19.4 K/UL (4.8-10.8) H Red Blood Count 2.95 M/UL (4.70-6.10) L Hemoglobin 8.0 G/DL (14.2-18.0) L Hematocrit 26.0 % (42.0-52.0) L Mean Corpuscular Volume 88 FL (80-99) Mean Corpuscular Hemoglobin 27.1 PG (27.0-31.0) Mean Corpuscular Hemoglobin Concent 30.8 G/DL (32.0-36.0) L Red Cell Distribution Width 14.7 % (11.6-14.8) Platelet Count 232 K/UL (150-450) Mean Platelet Volume 7.5 FL (6.5-10.1) Neutrophils (%) (Auto) % (45.0-75.0) Lymphocytes (%) (Auto) % (20.0-45.0) Monocytes (%) (Auto) % (1.0-10.0) Eosinophils (%) (Auto) % (0.0-3.0) Basophils (%) (Auto) % (0.0-2.0) Differential Total Cells Counted 100 Neutrophils % (Manual) 83 % (45-75) H Lymphocytes % (Manual) 10 % (20-45) L Monocytes % (Manual) 6 % (1-10) Eosinophils % (Manual) 1 % (0-3) Basophils % (Manual) 0 % (0-2) Band Neutrophils 0 % (0-8) Platelet Estimate Adequate Platelet Morphology Normal Hypochromasia 1+ Anisocytosis 1+ Sodium Level 145 MMOL/L (136-145) Potassium Level 4.0 MMOL/L (3.5-5.1) Chloride Level 115 MMOL/L (98-107) H Carbon Dioxide Level 21 MMOL/L (21-32) Anion Gap 9 mmol/L (5-15) Blood Urea Nitrogen 52 mg/dL (7-18) H Creatinine 2.4 MG/DL (0.55-1.30) H Estimat Glomerular Filtration Rate mL/min (>60) Glucose Level 131 MG/DL (74-106) H Uric Acid 10.9 MG/DL (2.6-7.2) H Calcium Level 9.0 MG/DL (8.5-10.1) Phosphorus Level 2.7 MG/DL (2.5-4.9) Magnesium Level 2.1 MG/DL (1.8-2.4) Total Bilirubin 0.3 MG/DL (0.2-1.0) Aspartate Amino Transf (AST/SGOT) 25 U/L (15-37) Alanine Aminotransferase (ALT/SGPT) 10 U/L (12-78) L Alkaline Phosphatase 219 U/L (46-116) H C-Reactive Protein, Quantitative 33.7 mg/dL (0.00-0.90) H Pro-B-Type Natriuretic Peptide 9128 pg/mL (0-125) H Total Protein 7.0 G/DL (6.4-8.2) Albumin 2.0 G/DL (3.4-5.0) L Globulin 5.0 g/dL Albumin/Globulin Ratio 0.4 (1.0-2.7) L Random Vancomycin Level 17.4 ug/mL Height (Feet): 5 Height (Inches): 6.00 Weight (Pounds): 187 Medications Current Medications Medications (Trade) Dose Ordered Sig/Cammy Route PRN Reason Start Time Stop Time Status Last Admin Dose Admin Acetaminophen (Tylenol) 650 mg Q4H PRN ORAL T>100.5 12/11/18 17:45 01/10/19 17:44 12/13/18 18:32 Albuterol/ Ipratropium (Albuterol/ Ipratropium) 3 ml Q4H PRN HHN Shortness of Breath 12/11/18 17:45 12/16/18 17:44 Allopurinol (Allopurinol) 300 mg DAILY ORAL 12/15/18 09:00 01/14/19 08:59 Chlorhexidine Gluconate (Yi-Hex 2%) 1 applic DAILY@2000 TOPIC 12/11/18 20:00 01/10/19 19:59 12/13/18 20:24 Dextrose (Dextrose 50%) 25 ml Q30M PRN IV Hypoglycemia 12/12/18 17:15 01/11/19 17:14 Dextrose (Dextrose 50%) 50 ml Q30M PRN IV Hypoglycemia 12/12/18 17:15 01/11/19 17:14 Dextrose/Sodium Chloride 1,000 ml @ 75 mls/hr [id number] IV 12/12/18 10:15 01/11/19 10:14 12/14/18 02:23 Diphenhydramine HCl (Benadryl) 25 mg Q6H PRN IVP Itching 12/14/18 12:30 01/13/19 12:29 Docusate Sodium (Colace) 100 mg THREE TIMES A DAY ORAL 12/12/18 13:00 01/11/19 12:59 12/14/18 13:11 Epoetin William (Procrit (for non ESRD use)) 10,000 units FRI-WED-FRI SUBQ 12/14/18 21:00 01/13/19 20:59 Ertapenem 0.5 gm/ Sodium Chloride 55 ml @ 110 mls/hr Q24H IVPB 12/13/18 20:00 12/18/18 19:59 12/13/18 20:24 Heparin Sodium (Porcine) (Heparin 5000 units/ml) 5,000 units EVERY 12 HOURS SUBQ 12/11/18 21:00 01/10/19 20:59 12/14/18 08:46 Hydromorphone HCl (Dilaudid) 1 mg Q4H PRN IVP For Pain 12/14/18 12:30 12/21/18 12:29 Insulin Aspart (NovoLOG) BEFORE MEALS AND HS SUBQ 12/12/18 21:00 01/11/19 20:59 12/14/18 11:41 Norepinephrine Bitartrate 4 mg/ Dextrose 254 ml @ 0 mls/hr Q24H IV 12/11/18 19:01 01/10/19 19:00 12/11/18 20:19 Ondansetron HCl (Zofran) 4 mg Q6H PRN IVP Nausea & Vomiting 12/11/18 17:45 01/10/19 17:44 12/13/18 18:32 Pantoprazole (Protonix) 40 mg Q12HR IVP 12/12/18 21:00 01/11/19 08:59 12/14/18 08:45 Polyethylene Glycol (Miralax) 17 gm DAILYPRN PRN ORAL Constipation 12/11/18 17:45 01/10/19 17:44 Vancomycin HCl (Vanco rx to dose) 1 ea DAILY PRN MISC . 12/11/18 18:00 01/10/19 17:59 Assessment/Plan Problem List: (1) Sepsis Assessment & Plan: 78-year-old male with sepsis, febrile, leukocytosis, bilateral foot amputations with left foot cellulitis and amputation site. Concerning for possible osteomyelitis. On IV antibiotics as per infectious disease. Leukocytosis improving. No active drainage noted from wound. Ulceration noted on lateral aspect of wound. Seems chronic overall. Noted to have a UTI. Blood cultures as below. No acute surgical intervention planned. IV antibiotics as per infectious disease Bone scan pending Trend labs Thank you for this consultation we will follow with recommendations ICD Codes: A41.9 - Sepsis, unspecified organism SNOMED: [id number] Qualifiers: Qualified Codes: A41.9 - Sepsis, unspecified organism (2) Cellulitis of foot Assessment & Plan: Status post amputation at the mid foot. No definite appearing acute osseous destruction or periosteal reaction identified. Possible small focus of soft tissue ulceration or air at the anterior lateral aspect of the stump, clinically correlate. ICD Codes: L03.119 - Cellulitis of unspecified part of limb SNOMED: [id number] Mariusz Diehl Dec 14, 2018 15:22
--- NOTE | 2018-12-14 15:32 | Diagnostic Imaging Report ---
Indication: 78-year-old male presenting with left foot infection. History of bilateral metatarsal amputation. Technique: 23.7 mCi of technetium 99 M-MDP was injected intravenously. A triple phase bone scan was then performed with blood flow, blood pool and delayed planar imaging in the region of interest. Several spot images were also obtained. Comparison: Plain x-ray left foot 12/11/2018 Findings: . There is increased blood flow to the left foot compared to the right. There is increased blood pool activity that is asymmetric indicative of cellulitis at the stump. Delayed planar images demonstrate mild focal increased activity at one of the areas probably along the lateral side of the transmetatarsal amputation. Please correlate with the location of the ulcer and consider evaluation with MRI for more specific evaluation of the anatomy involved. Impression: Findings concerning for acute osteomyelitis. Difficult to anatomically locate the area involved. Consider MRI for evaluation.
--- NOTE | 2018-12-14 17:57 | NUR ---
NURSE NOTES: Left message for Dr. Perales regarding results of bone scan. awaiting for call back.
--- NOTE | 2018-12-14 18:20 | NUR ---
TRANSFER TO FLOOR: Patient transferred to [facility], per Dr. Crawford. Report given to BENJAMIN Kat. Belongings and medications given to BENJAMIN Kat. belonging list signed at the bedside. Family and or S/O informed of transfer.
[2018-12-14] MEDS ORDERED: Albuterol/Ipratropium 3ml neb HHN PRN (19:00)
[2018-12-14] MEDS ORDERED: Miralax 17gm pkt ORAL PRN (19:00)
--- NOTE | 2018-12-14 19:30 | NUR ---
NURSE NOTES: Received pt from [facility] at 1820. Pt is confused and orient x1. pt has NC 2LMP. Pt has Lyles cath in place is running well. pt has intact iv access RH 22G is running well. pt's daughter is on bed side. all needs attended, bed is locked and is in the lowest position. call light within easy reach. will continue to monitor.
--- NOTE | 2018-12-14 19:41 | NUR ---
HAND-OFF: Report given to OK.
[2018-12-14] MEDS: Ertapenem 0.5 GM in NS 55 ML IVPB SCH (19:49)
--- NOTE | 2018-12-14 20:26 | Infectious Diseases Prog Note ---
Assessment/Plan Assessment/Plan Assessment/Plan: 78 yo male with PMHx of DM, HTN , PVP s/p B/L Mid foot amps who presented to the ED on 12/11/18 with left foot infection. Bactremia : Staph A and StrpGrp B Sepsic shock - resolved Left foot infection Cellulits / OM - Bone scan for OM left foot : acute osteomyelitis. Difficult to anatomically locate the area involved. Foot X-ray 12/11/18 - Possible small focus of soft tissue ulceration or air at the anterior lateral aspect of the stump, clinically correlate. No definite appearing acute osseous destruction or periosteal reaction identified. Fever to 102 - Resolved Leukocytosis, improving Septicemia =- Likely from foot infection Blood Cx 12/11/18 - Grp B strep Blood Cx 12/13/18 - Pend TTE - No veg DM HTN PVP s/p B/L Mid foot amps PLAN - Continue Vancomycin # 3 and Ertapenem #3 - 12/13/18 S/P Amikacin #2 - f/u wound Cx - Repeat blood Cx - recommend podiatry consult - Monitor CBC and Temps Subjective Allergies: Coded Allergies: PENICILLINS (Verified Allergy, Unknown, 12/11/18) Subjective Afebrile Objective Vital Signs Last 24 Hour Vital Signs Date Time Temp Pulse Resp B/P (MAP) Pulse Ox O2 Delivery O2 Flow Rate FiO2 12/14/18 18:30 97.9 97 16 160/75 (103) 97 12/14/18 17:00 105 16 143/117 (126) 97 12/14/18 16:00 98.1 94 13 154/54 (87) 98 12/14/18 16:00 Nasal Cannula 2.0 12/14/18 16:00 93 12/14/18 15:00 95 12 160/56 (90) 96 12/14/18 14:00 95 16 160/68 (98) 100 12/14/18 13:00 103 21 160/75 (103) 98 12/14/18 12:00 Nasal Cannula 2.0 12/14/18 12:00 98 12/14/18 12:00 98.6 102 20 158/65 (96) 100 12/14/18 11:00 100 15 161/75 (103) 100 12/14/18 10:00 106 18 183/65 (104) 98 12/14/18 09:00 103 19 158/70 (99) 100 12/14/18 08:00 Nasal Cannula 2.0 12/14/18 08:00 99.1 102 17 137/104 (115) 100 12/14/18 08:00 95 12/14/18 07:05 100 16 140/46 (77) 100 12/14/18 06:51 86 16 98 Nasal Cannula 2.0 28 12/14/18 06:51 98 Nasal Cannula 2.0 28 12/14/18 06:00 94 16 156/56 (89) 100 12/14/18 05:00 97 16 154/54 (87) 99 12/14/18 04:00 Nasal Cannula 2.0 12/14/18 04:00 91 12/14/18 04:00 98.5 87 13 140/62 (88) 98 12/14/18 03:00 91 15 136/52 (80) 99 12/14/18 02:00 82 13 139/52 (81) 99 12/14/18 01:00 87 15 138/84 (102) 99 12/14/18 00:00 98.0 83 13 139/84 (102) 99 12/14/18 00:00 Nasal Cannula 2.0 12/14/18 00:00 86 12/13/18 23:00 79 12 146/57 (86) 99 12/13/18 22:00 80 12 146/49 (81) 100 12/13/18 21:00 83 14 140/54 (82) 99 Height (Feet): 5 Height (Inches): 6.00 Weight (Pounds): 187 HEENT: anicteric Respiratory/Chest: no accessory muscle use Cardiovascular: normal rate Abdomen: soft, non tender Microbiology Date/Time Source Procedure Growth Status 12/13/18 09:50 Drainage Fluid Gram Stain - Final Resulted 12/13/18 09:50 Drainage Fluid Wound Culture Pending Resulted Laboratory Tests Test 12/14/18 04:00 White Blood Count 19.4 K/UL (4.8-10.8) H Red Blood Count 2.95 M/UL (4.70-6.10) L Hemoglobin 8.0 G/DL (14.2-18.0) L Hematocrit 26.0 % (42.0-52.0) L Mean Corpuscular Volume 88 FL (80-99) Mean Corpuscular Hemoglobin 27.1 PG (27.0-31.0) Mean Corpuscular Hemoglobin Concent 30.8 G/DL (32.0-36.0) L Red Cell Distribution Width 14.7 % (11.6-14.8) Platelet Count 232 K/UL (150-450) Mean Platelet Volume 7.5 FL (6.5-10.1) Neutrophils (%) (Auto) % (45.0-75.0) Lymphocytes (%) (Auto) % (20.0-45.0) Monocytes (%) (Auto) % (1.0-10.0) Eosinophils (%) (Auto) % (0.0-3.0) Basophils (%) (Auto) % (0.0-2.0) Differential Total Cells Counted 100 Neutrophils % (Manual) 83 % (45-75) H Lymphocytes % (Manual) 10 % (20-45) L Monocytes % (Manual) 6 % (1-10) Eosinophils % (Manual) 1 % (0-3) Basophils % (Manual) 0 % (0-2) Band Neutrophils 0 % (0-8) Platelet Estimate Adequate Platelet Morphology Normal Hypochromasia 1+ Anisocytosis 1+ Sodium Level 145 MMOL/L (136-145) Potassium Level 4.0 MMOL/L (3.5-5.1) Chloride Level 115 MMOL/L (98-107) H Carbon Dioxide Level 21 MMOL/L (21-32) Anion Gap 9 mmol/L (5-15) Blood Urea Nitrogen 52 mg/dL (7-18) H Creatinine 2.4 MG/DL (0.55-1.30) H Estimat Glomerular Filtration Rate mL/min (>60) Glucose Level 131 MG/DL (74-106) H Uric Acid 10.9 MG/DL (2.6-7.2) H Calcium Level 9.0 MG/DL (8.5-10.1) Phosphorus Level 2.7 MG/DL (2.5-4.9) Magnesium Level 2.1 MG/DL (1.8-2.4) Total Bilirubin 0.3 MG/DL (0.2-1.0) Aspartate Amino Transf (AST/SGOT) 25 U/L (15-37) Alanine Aminotransferase (ALT/SGPT) 10 U/L (12-78) L Alkaline Phosphatase 219 U/L (46-116) H C-Reactive Protein, Quantitative 33.7 mg/dL (0.00-0.90) H Pro-B-Type Natriuretic Peptide 9128 pg/mL (0-125) H Total Protein 7.0 G/DL (6.4-8.2) Albumin 2.0 G/DL (3.4-5.0) L Globulin 5.0 g/dL Albumin/Globulin Ratio 0.4 (1.0-2.7) L Random Vancomycin Level 17.4 ug/mL Current Medications Medications (Trade) Dose Ordered Sig/Cammy Route PRN Reason Start Time Stop Time Status Last Admin Dose Admin Acetaminophen (Tylenol) 650 mg Q4H PRN ORAL T>100.5 12/14/18 19:00 01/10/19 18:59 Albuterol/ Ipratropium (Albuterol/ Ipratropium) 3 ml Q4H PRN HHN Shortness of Breath 12/14/18 19:00 12/16/18 18:59 Allopurinol (Allopurinol) 300 mg DAILY ORAL 12/15/18 09:00 01/14/19 08:59 Dextrose (Dextrose 50%) 25 ml Q30M PRN IV Hypoglycemia 12/14/18 18:45 01/11/19 17:14 Dextrose (Dextrose 50%) 50 ml Q30M PRN IV Hypoglycemia 12/14/18 18:45 01/11/19 17:14 Dextrose/Sodium Chloride 1,000 ml @ 75 mls/hr [id number] IV 12/14/18 18:30 01/11/19 10:14 12/14/18 18:41 Diphenhydramine HCl (Benadryl) 25 mg Q6H PRN IVP Itching 12/14/18 19:00 01/13/19 18:59 Docusate Sodium (Colace) 100 mg THREE TIMES A DAY ORAL 12/15/18 09:00 01/11/19 12:59 Epoetin William (Epoetin William-EPBX(NON ESRD)) 10,000 unit MON-WED-FRI SUBQ 12/14/18 21:00 01/13/19 20:59 Ertapenem 0.5 gm/ Sodium Chloride 55 ml @ 110 mls/hr Q24H IVPB 12/14/18 20:00 12/18/18 19:59 12/14/18 19:49 Heparin Sodium (Porcine) (Heparin 5000 units/ml) 5,000 units EVERY 12 HOURS SUBQ 12/14/18 21:00 01/10/19 20:59 Hydromorphone HCl (Dilaudid) 1 mg Q4H PRN IVP For Pain 12/14/18 21:00 12/21/18 20:59 Insulin Aspart (NovoLOG) BEFORE MEALS AND HS SUBQ 12/14/18 21:00 01/11/19 20:59 Ondansetron HCl (Zofran) 4 mg Q6H PRN IVP Nausea & Vomiting 12/14/18 19:00 01/10/19 18:59 Pantoprazole (Protonix) 40 mg Q12HR IVP 12/14/18 21:00 01/11/19 08:59 Polyethylene Glycol (Miralax) 17 gm DAILYPRN PRN ORAL Constipation 12/14/18 19:00 01/13/19 18:59 Vancomycin HCl (Vanco rx to dose) 1 ea DAILY PRN MISC . 12/15/18 09:00 01/10/19 17:59 Casa Martin MD Dec 14, 2018 20:26
[2018-12-14] MEDS: Epoetin Alfa-EPBX (NON ESRD)10,000 unit/ml vial SUBQ SCH (20:57)
[2018-12-14] MEDS ORDERED: dilTIAZem HCl CD 120mg cap ORAL ONE (21:00)
[2018-12-14] MEDS ORDERED: Epoetin Alfa-EPBX (NON ESRD)10,000 unit/ml vial SUBQ SCH (21:00)
[2018-12-14] MEDS: DiphenhydrAMINE 50mg/ml Inj IVP PRN (22:02)
--- NOTE | 2018-12-14 22:30 | NUR ---
NURSE NOTES: Dr Chang at bedside, aware of patient's high BP. MD ordered diltiazem 120mg TID to be started in am. Will carry out.
[2018-12-15] VITALS (7 sets, daily range): BP systolic 138–173; BP diastolic 60–89
[2018-12-15] MEDS: HYDROmorphone 1mg/ml Carpuject IVP PRN ×4 (01:46→21:05)
[2018-12-15] MEDS: NovoLOG Insulin Flexpen SUBQ SCH ×4 (05:46→21:17)
[2018-12-15 06:27] LABS: BASOPHILS % (AUTO) 0.7 % (0.0-2.0); HEMATOCRIT 27.9 % (42.0-52.0); HEMOGLOBIN 8.5 G/DL (14.2-18.0); LYMPHOCYTES % (AUTO) 14.9 % (20.0-45.0); MEAN CORPUSCULAR VOLUME 88 FL (80-99); MONOCYTES % (AUTO) 6.3 % (1.0-10.0); NEUTROPHILS % (AUTO) 77.1 % (45.0-75.0); PLATELET COUNT 273 K/UL (150-450); RED BLOOD COUNT 3.16 M/UL (4.70-6.10); RED CELL DISTRIBUTION WIDTH 14.6 % (11.6-14.8); WHITE BLOOD COUNT 14.8 K/UL (4.8-10.8)
[2018-12-15 06:47] LABS: ALANINE AMINOTRANSFERASE 12 U/L (12-78); ALBUMIN 2.1 G/DL (3.4-5.0); ALBUMIN/GLOBULIN RATIO 0.4 (1.0-2.7); ALKALINE PHOSPHATASE 273 U/L (46-116); ANION GAP 11 mmol/L (5-15); ASPARTATE AMINO TRANSFERASE 25 U/L (15-37); BILIRUBIN,TOTAL 0.3 MG/DL (0.2-1.0); BLOOD UREA NITROGEN 37 mg/dL (7-18); CALCIUM 9.7 MG/DL (8.5-10.1); CARBON DIOXIDE 22 MMOL/L (21-32); CHLORIDE 116 MMOL/L (98-107); PHOSPHORUS 2.5 MG/DL (2.5-4.9); POTASSIUM 4.1 MMOL/L (3.5-5.1); SODIUM 148 MMOL/L (136-145)
--- NOTE | 2018-12-15 07:30 | NUR ---
NURSE NOTES: Received pt from BENJAMIN EUCEDA. Pt is confused and orient x1. pt has NC 2LMP. Pt has Lyles cath in place is running well. pt has intact iv access RH 22G is running well. pt's daughter is on bed side. all needs attended, bed is locked and is in the lowest position. call light within easy reach. will continue to monitor.
[2018-12-15] MEDS: D5NS 1,000 ML IV SCH ×2 (07:50→12:32)
--- NOTE | 2018-12-15 07:52 | NUR ---
HAND-OFF: Report given to BENJAMIN Kat.
[2018-12-15] MEDS: Pantoprazole Inj IVP SCH ×2 (08:17→20:52)
[2018-12-15] MEDS: DiphenhydrAMINE 50mg/ml Inj IVP PRN (08:18)
[2018-12-15] MEDS: Docusate 100mg cap ORAL SCH ×3 (08:18→17:26)
[2018-12-15] MEDS: Heparin 5000 units/ml inj SUBQ SCH ×2 (08:20→20:54)
[2018-12-15] MEDS ORDERED: dilTIAZem HCl CD 120mg cap ORAL SCH (09:00)
[2018-12-15] MEDS ORDERED: Tubing IV Secondary IV ONE (10:15)
[2018-12-15] MEDS ORDERED: NS 275ml ONE (10:15)
[2018-12-15] MEDS ORDERED: D5NS 1000ml IV ONE ×2 (10:15→14:54)
[2018-12-15] MEDS ORDERED: D5 1/2NS 1000ml IV ONE (10:15)
--- NOTE | 2018-12-15 12:22 | Pulmonology Progress Note ---
Assessment/Plan Problems: (1) Acute encephalopathy (2) Sepsis (3) UTI (urinary tract infection) (4) ATN (acute tubular necrosis) (5) Osteomyelitis (6) Diabetes mellitus (7) Hypotension (8) History of hypertension Assessment/Plan iv fluids iv abx, BC persistently positive sliding sclale check cxr and bnp in am all reviewed dvt prophylaxis Subjective ROS Limited/Unobtainable: Yes Allergies: Coded Allergies: PENICILLINS (Verified Allergy, Unknown, 12/11/18) Objective Last 24 Hour Vital Signs Date Time Temp Pulse Resp B/P (MAP) Pulse Ox O2 Delivery O2 Flow Rate FiO2 12/15/18 09:00 Nasal Cannula 2.0 12/15/18 08:49 99.3 12/15/18 08:00 98.2 64 16 138/60 (86) 93 12/15/18 07:06 100 Nasal Cannula 2.0 28 12/15/18 07:06 90 18 100 Nasal Cannula 2.0 28 12/15/18 04:00 99.3 88 20 155/63 (93) 97 12/15/18 00:00 99.8 98 20 168/73 (104) 97 12/14/18 20:57 97 160/75 12/14/18 20:00 98.3 87 20 162/77 (105) 97 12/14/18 18:30 97.9 97 16 160/75 (103) 97 12/14/18 17:00 105 16 143/117 (126) 97 12/14/18 16:00 98.1 94 13 154/54 (87) 98 12/14/18 16:00 Nasal Cannula 2.0 12/14/18 16:00 93 12/14/18 15:00 95 12 160/56 (90) 96 12/14/18 14:00 95 16 160/68 (98) 100 12/14/18 13:00 103 21 160/75 (103) 98 Intake and Output 12/14/18 12/15/18 19:00 07:00 Intake Total 820 ml 200 ml Output Total 1300 ml 500 ml Balance -480 ml -300 ml Intake Oral 200 ml IV Total 800 ml Other 20 ml Output Urine Total 1300 ml 500 ml # Bowel Movements 1 General Appearance: WD/WN HEENT: normocephalic, atraumatic, anicteric, PERRL Respiratory/Chest: chest wall non-tender, lungs clear Cardiovascular: normal peripheral pulses, normal rate Abdomen: normal bowel sounds, soft, non tender Genitourinary: normal external genitalia Extremities: no clubbing Skin: no rash Neurologic/Psychiatric: qa consultant II-XII grossly normal Microbiology Date/Time Source Procedure Growth Status 12/13/18 09:50 Drainage Fluid Gram Stain - Final Resulted 12/13/18 09:50 Wound Culture - Preliminary Streptococcus Group B Resulted Laboratory Tests 12/15/18 05:30: White Blood Count 14.8H, Red Blood Count 3.16L, Hemoglobin 8.5L, Hematocrit 27.9L, Mean Corpuscular Volume 88, Mean Corpuscular Hemoglobin 26.9L, Mean Corpuscular Hemoglobin Concent 30.5L, Red Cell Distribution Width 14.6, Platelet Count 273, Mean Platelet Volume 7.1, Neutrophils (%) (Auto) 77.1H, Lymphocytes (%) (Auto) 14.9L, Monocytes (%) (Auto) 6.3, Eosinophils (%) (Auto) 1.0, Basophils (%) (Auto) 0.7, Sodium Level 148H, Potassium Level 4.1, Chloride Level 116H, Carbon Dioxide Level 22, Anion Gap 11, Blood Urea Nitrogen 37H, Creatinine 2.0H, Estimat Glomerular Filtration Rate , Glucose Level 136H, Uric Acid 11.2H, Calcium Level 9.7, Phosphorus Level 2.5, Magnesium Level 1.9, Total Bilirubin 0.3, Aspartate Amino Transf (AST/SGOT) 25, Alanine Aminotransferase ( ALT/SGPT) 12, Alkaline Phosphatase 273H, C-Reactive Protein, Quantitative 22.8H , Pro-B-Type Natriuretic Peptide 86111R, Total Protein 7.5, Albumin 2.1L, Globulin 5.4, Albumin/Globulin Ratio 0.4L Current Medications Medications (Trade) Dose Ordered Sig/Cammy Route PRN Reason Start Time Stop Time Status Last Admin Dose Admin Acetaminophen (Tylenol) 650 mg Q4H PRN ORAL T>100.5 12/14/18 19:00 01/10/19 18:59 Albuterol/ Ipratropium (Albuterol/ Ipratropium) 3 ml Q4H PRN HHN Shortness of Breath 12/14/18 19:00 12/16/18 18:59 Allopurinol (Allopurinol) 300 mg DAILY ORAL 12/15/18 09:00 01/14/19 08:59 12/15/18 08:18 Dextrose (Dextrose 50%) 25 ml Q30M PRN IV Hypoglycemia 12/14/18 18:45 01/11/19 17:14 Dextrose (Dextrose 50%) 50 ml Q30M PRN IV Hypoglycemia 12/14/18 18:45 01/11/19 17:14 Dextrose/Sodium Chloride 1,000 ml @ 75 mls/hr [id number] IV 12/14/18 18:30 01/11/19 10:14 12/14/18 18:41 Diltiazem HCl (Cardizem) 30 mg TID ORAL 12/15/18 18:00 01/14/19 17:59 Diphenhydramine HCl (Benadryl) 25 mg Q6H PRN IVP Itching 12/14/18 19:00 01/13/19 18:59 12/15/18 08:18 Docusate Sodium (Colace) 100 mg THREE TIMES A DAY ORAL 12/15/18 09:00 01/11/19 12:59 12/15/18 08:18 Epoetin William (Epoetin William-EPBX(NON ESRD)) 10,000 unit FRI-FRI-FRI SUBQ 12/14/18 21:00 01/13/19 20:59 12/14/18 20:57 Ertapenem 0.5 gm/ Sodium Chloride 55 ml @ 110 mls/hr Q24H IVPB 12/14/18 20:00 12/18/18 19:59 12/14/18 19:49 Heparin Sodium (Porcine) (Heparin 5000 units/ml) 5,000 units EVERY 12 HOURS SUBQ 12/14/18 21:00 01/10/19 20:59 12/15/18 08:20 Hydromorphone HCl (Dilaudid) 1 mg Q4H PRN IVP For Pain 12/14/18 21:00 12/21/18 20:59 12/15/18 08:19 Insulin Aspart (NovoLOG) BEFORE MEALS AND HS SUBQ 12/14/18 21:00 01/11/19 20:59 12/15/18 05:46 Ondansetron HCl (Zofran) 4 mg Q6H PRN IVP Nausea & Vomiting 12/14/18 19:00 01/10/19 18:59 Pantoprazole (Protonix) 40 mg Q12HR IVP 12/14/18 21:00 01/11/19 08:59 12/15/18 08:17 Polyethylene Glycol (Miralax) 17 gm DAILYPRN PRN ORAL Constipation 12/14/18 19:00 01/13/19 18:59 Vancomycin HCl (Vanco rx to dose) 1 ea DAILY PRN MISC . 12/15/18 09:00 01/10/19 17:59 Karrie Crawford MD Dec 15, 2018 12:22
[2018-12-15] MEDS ORDERED: Morphine Sulfate 2mg/ml Inj(IV/IM USE ONLY) IV PRN (12:30)
--- NOTE | 2018-12-15 12:30 | Infectious Diseases Prog Note ---
Assessment/Plan Assessment/Plan Assessment/Plan: 78 yo male with PMHx of DM, HTN , PVP s/p B/L Mid foot amps who presented to the ED on 12/11/18 with left foot infection. Bactremia : Staph A and StrpGrp B Sepsic shock - resolved Left foot infection Cellulits / OM - Bone scan for OM left foot : acute osteomyelitis. Difficult to anatomically locate the area involved. Foot X-ray 12/11/18 - Possible small focus of soft tissue ulceration or air at the anterior lateral aspect of the stump, clinically correlate. No definite appearing acute osseous destruction or periosteal reaction identified. Fever to 102 - Resolved Leukocytosis, improving Septicemia =- Likely from foot infection Blood Cx 12/11/18 - Grp B strep Blood Cx 12/13/18 - Pend TTE - No veg DM HTN PVP s/p B/L Mid foot amps PLAN - Continue Vancomycin # 4 and Ertapenem #4 - 12/13/18 S/P Amikacin #2 - f/u wound Cx - Repeat blood Cx - recommend I/D of the Lt foot - Monitor CBC and Temps Subjective Allergies: Coded Allergies: PENICILLINS (Verified Allergy, Unknown, 12/11/18) Subjective no acute event Afebrile Objective Vital Signs Last 24 Hour Vital Signs Date Time Temp Pulse Resp B/P (MAP) Pulse Ox O2 Delivery O2 Flow Rate FiO2 12/15/18 09:00 Nasal Cannula 2.0 12/15/18 08:49 99.3 12/15/18 08:00 98.2 64 16 138/60 (86) 93 12/15/18 07:06 100 Nasal Cannula 2.0 28 12/15/18 07:06 90 18 100 Nasal Cannula 2.0 28 12/15/18 04:00 99.3 88 20 155/63 (93) 97 12/15/18 00:00 99.8 98 20 168/73 (104) 97 12/14/18 20:57 97 160/75 12/14/18 20:00 98.3 87 20 162/77 (105) 97 12/14/18 18:30 97.9 97 16 160/75 (103) 97 12/14/18 17:00 105 16 143/117 (126) 97 12/14/18 16:00 98.1 94 13 154/54 (87) 98 12/14/18 16:00 Nasal Cannula 2.0 12/14/18 16:00 93 12/14/18 15:00 95 12 160/56 (90) 96 12/14/18 14:00 95 16 160/68 (98) 100 12/14/18 13:00 103 21 160/75 (103) 98 Height (Feet): 5 Height (Inches): 6.00 Weight (Pounds): 185 HEENT: anicteric Respiratory/Chest: normal breath sounds Cardiovascular: regular rhythm Skin: other - Lt foot amput site : w pus ++ Microbiology Date/Time Source Procedure Growth Status 12/13/18 09:50 Drainage Fluid Gram Stain - Final Resulted 12/13/18 09:50 Wound Culture - Preliminary Streptococcus Group B Resulted Laboratory Tests Test 12/15/18 05:30 White Blood Count 14.8 K/UL (4.8-10.8) H Red Blood Count 3.16 M/UL (4.70-6.10) L Hemoglobin 8.5 G/DL (14.2-18.0) L Hematocrit 27.9 % (42.0-52.0) L Mean Corpuscular Volume 88 FL (80-99) Mean Corpuscular Hemoglobin 26.9 PG (27.0-31.0) L Mean Corpuscular Hemoglobin Concent 30.5 G/DL (32.0-36.0) L Red Cell Distribution Width 14.6 % (11.6-14.8) Platelet Count 273 K/UL (150-450) Mean Platelet Volume 7.1 FL (6.5-10.1) Neutrophils (%) (Auto) 77.1 % (45.0-75.0) H Lymphocytes (%) (Auto) 14.9 % (20.0-45.0) L Monocytes (%) (Auto) 6.3 % (1.0-10.0) Eosinophils (%) (Auto) 1.0 % (0.0-3.0) Basophils (%) (Auto) 0.7 % (0.0-2.0) Sodium Level 148 MMOL/L (136-145) H Potassium Level 4.1 MMOL/L (3.5-5.1) Chloride Level 116 MMOL/L (98-107) H Carbon Dioxide Level 22 MMOL/L (21-32) Anion Gap 11 mmol/L (5-15) Blood Urea Nitrogen 37 mg/dL (7-18) H Creatinine 2.0 MG/DL (0.55-1.30) H Estimat Glomerular Filtration Rate mL/min (>60) Glucose Level 136 MG/DL (74-106) H Uric Acid 11.2 MG/DL (2.6-7.2) H Calcium Level 9.7 MG/DL (8.5-10.1) Phosphorus Level 2.5 MG/DL (2.5-4.9) Magnesium Level 1.9 MG/DL (1.8-2.4) Total Bilirubin 0.3 MG/DL (0.2-1.0) Aspartate Amino Transf (AST/SGOT) 25 U/L (15-37) Alanine Aminotransferase (ALT/SGPT) 12 U/L (12-78) Alkaline Phosphatase 273 U/L (46-116) H C-Reactive Protein, Quantitative 22.8 mg/dL (0.00-0.90) H Pro-B-Type Natriuretic Peptide 51848 pg/mL (0-125) H Total Protein 7.5 G/DL (6.4-8.2) Albumin 2.1 G/DL (3.4-5.0) L Globulin 5.4 g/dL Albumin/Globulin Ratio 0.4 (1.0-2.7) L Current Medications Medications (Trade) Dose Ordered Sig/Cammy Route PRN Reason Start Time Stop Time Status Last Admin Dose Admin Acetaminophen (Tylenol) 650 mg Q4H PRN ORAL T>100.5 12/14/18 19:00 01/10/19 18:59 Albuterol/ Ipratropium (Albuterol/ Ipratropium) 3 ml Q4H PRN HHN Shortness of Breath 12/14/18 19:00 12/16/18 18:59 Allopurinol (Allopurinol) 300 mg DAILY ORAL 12/15/18 09:00 01/14/19 08:59 12/15/18 08:18 Dextrose (Dextrose 50%) 25 ml Q30M PRN IV Hypoglycemia 12/14/18 18:45 01/11/19 17:14 Dextrose (Dextrose 50%) 50 ml Q30M PRN IV Hypoglycemia 12/14/18 18:45 01/11/19 17:14 Dextrose/Sodium Chloride 1,000 ml @ 75 mls/hr [id number] IV 12/14/18 18:30 01/11/19 10:14 12/14/18 18:41 Diltiazem HCl (Cardizem) 30 mg TID ORAL 12/15/18 18:00 01/14/19 17:59 Diphenhydramine HCl (Benadryl) 25 mg Q6H PRN IVP Itching 12/14/18 19:00 01/13/19 18:59 12/15/18 08:18 Docusate Sodium (Colace) 100 mg THREE TIMES A DAY ORAL 12/15/18 09:00 01/11/19 12:59 12/15/18 08:18 Epoetin William (Epoetin William-EPBX(NON ESRD)) 10,000 unit FRI- SUBQ 12/14/18 21:00 01/13/19 20:59 12/14/18 20:57 Ertapenem 0.5 gm/ Sodium Chloride 55 ml @ 110 mls/hr Q24H IVPB 12/14/18 20:00 12/18/18 19:59 12/14/18 19:49 Heparin Sodium (Porcine) (Heparin 5000 units/ml) 5,000 units EVERY 12 HOURS SUBQ 12/14/18 21:00 01/10/19 20:59 12/15/18 08:20 Hydromorphone HCl (Dilaudid) 1 mg Q4H PRN IVP For Pain 12/14/18 21:00 12/21/18 20:59 12/15/18 08:19 Insulin Aspart (NovoLOG) BEFORE MEALS AND HS SUBQ 12/14/18 21:00 01/11/19 20:59 12/15/18 05:46 Lorazepam (Ativan 2mg/ml 1ml) 2 mg Q4H PRN IV For Anxiety 12/15/18 12:30 12/22/18 12:29 Morphine Sulfate (Morphine Sulfate) 2 mg Q4H PRN IV For Pain 12/15/18 12:30 12/22/18 12:29 Ondansetron HCl (Zofran) 4 mg Q6H PRN IVP Nausea & Vomiting 12/14/18 19:00 01/10/19 18:59 Pantoprazole (Protonix) 40 mg Q12HR IVP 12/14/18 21:00 01/11/19 08:59 12/15/18 08:17 Polyethylene Glycol (Miralax) 17 gm DAILYPRN PRN ORAL Constipation 12/14/18 19:00 01/13/19 18:59 Vancomycin HCl (Vanco rx to dose) 1 ea DAILY PRN MISC . 12/15/18 09:00 01/10/19 17:59 Casa Martin MD Dec 15, 2018 12:30
--- NOTE | 2018-12-15 13:27 | Nephrology Progress Note ---
Assessment/Plan Problem List: (1) Renal failure (ARF), acute on chronic Assessment: Cr down to 2.4 (2) Altered mental status (3) UTI (urinary tract infection) (4) Sepsis (5) Hypotension Assessment: shock Assessment Septic shock- was on pressors , now is off Diabetic nephropathy CKD Anemia s/p foot and LE amputations Plan Dilaudid for pain Avoid nephrotoxics allopurinol urine studies 2D echo Left ventricular ejection fraction estimated to be 55-60 %. Kidney TELLO noted keep BP and BS in check Anemia daley per orders Subjective ROS Limited/Unobtainable: No Constitutional: Reports: malaise, weakness Objective Objective Last 24 Hour Vital Signs Date Time Temp Pulse Resp B/P (MAP) Pulse Ox O2 Delivery O2 Flow Rate FiO2 12/15/18 09:00 Nasal Cannula 2.0 12/15/18 08:49 99.3 12/15/18 08:00 98.2 64 16 138/60 (86) 93 12/15/18 07:06 100 Nasal Cannula 2.0 28 12/15/18 07:06 90 18 100 Nasal Cannula 2.0 28 12/15/18 04:00 99.3 88 20 155/63 (93) 97 12/15/18 00:00 99.8 98 20 168/73 (104) 97 12/14/18 20:57 97 160/75 12/14/18 20:00 98.3 87 20 162/77 (105) 97 12/14/18 18:30 97.9 97 16 160/75 (103) 97 12/14/18 17:00 105 16 143/117 (126) 97 12/14/18 16:00 98.1 94 13 154/54 (87) 98 12/14/18 16:00 Nasal Cannula 2.0 12/14/18 16:00 93 12/14/18 15:00 95 12 160/56 (90) 96 12/14/18 14:00 95 16 160/68 (98) 100 Intake and Output 12/14/18 12/15/18 19:00 07:00 Intake Total 820 ml 200 ml Output Total 1300 ml 500 ml Balance -480 ml -300 ml Intake Oral 200 ml IV Total 800 ml Other 20 ml Output Urine Total 1300 ml 500 ml # Bowel Movements 1 Laboratory Tests 12/15/18 05:30: White Blood Count 14.8H, Red Blood Count 3.16L, Hemoglobin 8.5L, Hematocrit 27.9L, Mean Corpuscular Volume 88, Mean Corpuscular Hemoglobin 26.9L, Mean Corpuscular Hemoglobin Concent 30.5L, Red Cell Distribution Width 14.6, Platelet Count 273, Mean Platelet Volume 7.1, Neutrophils (%) (Auto) 77.1H, Lymphocytes (%) (Auto) 14.9L, Monocytes (%) (Auto) 6.3, Eosinophils (%) (Auto) 1.0, Basophils (%) (Auto) 0.7, Sodium Level 148H, Potassium Level 4.1, Chloride Level 116H, Carbon Dioxide Level 22, Anion Gap 11, Blood Urea Nitrogen 37H, Creatinine 2.0H, Estimat Glomerular Filtration Rate , Glucose Level 136H, Uric Acid 11.2H, Calcium Level 9.7, Phosphorus Level 2.5, Magnesium Level 1.9, Total Bilirubin 0.3, Aspartate Amino Transf (AST/SGOT) 25, Alanine Aminotransferase ( ALT/SGPT) 12, Alkaline Phosphatase 273H, C-Reactive Protein, Quantitative 22.8H , Pro-B-Type Natriuretic Peptide 01941L, Total Protein 7.5, Albumin 2.1L, Globulin 5.4, Albumin/Globulin Ratio 0.4L Height (Feet): 5 Height (Inches): 6.00 Weight (Pounds): 185 General Appearance: mild distress Cardiovascular: tachycardia Respiratory/Chest: decreased breath sounds Abdomen: distended Extremities: other - no change lower exts Naveed Vanegas MD Dec 15, 2018 13:27
--- NOTE | 2018-12-15 14:30 | Progress Note ---
DATE: 12/14/2018 SUBJECTIVE: The patient is afebrile. His borderline tachycardia persists. PHYSICAL EXAMINATION: VITAL SIGNS: Blood pressure 160/75, pulse is 92, respirations 16, and temperature is 97.9. HEENT: Eyes are normal. ENT, mucous membranes are moist and intact. NECK: Supple with no JVD without lymph nodes. LUNGS: Clear. HEART: Normal sounds with regular beats. ABDOMEN: Soft and nontender with normal bowel sounds. EXTREMITIES: Warm without cyanosis, clubbing, or edema. LABORATORY AND DIAGNOSTIC DATA: His hemoglobin is 8.0, hematocrit 26.0 with MCV of 88, WBC of 19.4, platelets 272,000. His previous WBC was 23.3 on 12/13/2018. His BUN and creatinine are 52 and 2.4 respectively. His sodium is 145, potassium 4.9, chloride 116, CO2 is 21, uric acid is 10.9, phosphorus is 2.7. His magnesium is 2.1. His CRP is 33.7 and proBNP is 9128. osteomyelitis. However this is based on increased blood flow to the left foot compared to the right. In addition, there is increased blood flow activity indication of cellulitis area. Delayed imaging study revealed that there is mild focal increased activity probably along the transmetatarsal amputation. Ultrasound at this time was requested but it is unavailable. IMPRESSION: Clinically and biologically, the patient appeared to be improved with underlying diagnosis appeared to be cellulitis of left lower extremity with possible osteomyelitis. Foot x-ray was done. However, x-ray appearance was identified. PLAN: The patient will undergo an MRI of the foot. The patient 120 mg daily. However, on a chronic basis. Repeat laboratory tests will be done in the a.m. Ayush Chang M.D. DR: Sin JOB#: [id number] CC:
--- NOTE | 2018-12-15 15:28 | Surgery Progress Note ---
Surgery Progress Note Subjective Additional Comments Patient seen and examined bedside. No acute events. Labs slowly improving. Leukocytosis trending down. Otherwise comfortable. Findings: . There is increased blood flow to the left foot compared to the right. There is increased blood pool activity that is asymmetric indicative of cellulitis at the stump. Delayed planar images demonstrate mild focal increased activity at one of the areas probably along the lateral side of the transmetatarsal amputation. Please correlate with the location of the ulcer and consider evaluation with MRI for more specific evaluation of the anatomy involved. Objective Last 24 Hour Vital Signs Date Time Temp Pulse Resp B/P (MAP) Pulse Ox O2 Delivery O2 Flow Rate FiO2 12/15/18 13:24 99.3 12/15/18 12:00 98.5 92 16 156/64 (94) 95 12/15/18 09:00 Nasal Cannula 2.0 12/15/18 08:00 98.2 64 16 138/60 (86) 93 12/15/18 07:06 100 Nasal Cannula 2.0 28 12/15/18 07:06 90 18 100 Nasal Cannula 2.0 28 12/15/18 04:00 99.3 88 20 155/63 (93) 97 12/15/18 00:00 99.8 98 20 168/73 (104) 97 12/14/18 20:57 97 160/75 12/14/18 20:00 98.3 87 20 162/77 (105) 97 12/14/18 18:30 97.9 97 16 160/75 (103) 97 12/14/18 17:00 105 16 143/117 (126) 97 12/14/18 16:00 98.1 94 13 154/54 (87) 98 12/14/18 16:00 Nasal Cannula 2.0 12/14/18 16:00 93 I&O Intake and Output 12/14/18 12/15/18 19:00 07:00 Intake Total 820 ml 200 ml Output Total 1300 ml 500 ml Balance -480 ml -300 ml Intake Oral 200 ml IV Total 800 ml Other 20 ml Output Urine Total 1300 ml 500 ml # Bowel Movements 1 Dressing: dry Wound: clean Cardiovascular: RSR Respiratory: clear Abdomen: soft, flat, non-tender, present bowel sounds, other Extremities: other Laboratory Tests Test 12/15/18 05:30 White Blood Count 14.8 K/UL (4.8-10.8) H Red Blood Count 3.16 M/UL (4.70-6.10) L Hemoglobin 8.5 G/DL (14.2-18.0) L Hematocrit 27.9 % (42.0-52.0) L Mean Corpuscular Volume 88 FL (80-99) Mean Corpuscular Hemoglobin 26.9 PG (27.0-31.0) L Mean Corpuscular Hemoglobin Concent 30.5 G/DL (32.0-36.0) L Red Cell Distribution Width 14.6 % (11.6-14.8) Platelet Count 273 K/UL (150-450) Mean Platelet Volume 7.1 FL (6.5-10.1) Neutrophils (%) (Auto) 77.1 % (45.0-75.0) H Lymphocytes (%) (Auto) 14.9 % (20.0-45.0) L Monocytes (%) (Auto) 6.3 % (1.0-10.0) Eosinophils (%) (Auto) 1.0 % (0.0-3.0) Basophils (%) (Auto) 0.7 % (0.0-2.0) Sodium Level 148 MMOL/L (136-145) H Potassium Level 4.1 MMOL/L (3.5-5.1) Chloride Level 116 MMOL/L (98-107) H Carbon Dioxide Level 22 MMOL/L (21-32) Anion Gap 11 mmol/L (5-15) Blood Urea Nitrogen 37 mg/dL (7-18) H Creatinine 2.0 MG/DL (0.55-1.30) H Estimat Glomerular Filtration Rate mL/min (>60) Glucose Level 136 MG/DL (74-106) H Uric Acid 11.2 MG/DL (2.6-7.2) H Calcium Level 9.7 MG/DL (8.5-10.1) Phosphorus Level 2.5 MG/DL (2.5-4.9) Magnesium Level 1.9 MG/DL (1.8-2.4) Total Bilirubin 0.3 MG/DL (0.2-1.0) Aspartate Amino Transf (AST/SGOT) 25 U/L (15-37) Alanine Aminotransferase (ALT/SGPT) 12 U/L (12-78) Alkaline Phosphatase 273 U/L (46-116) H C-Reactive Protein, Quantitative 22.8 mg/dL (0.00-0.90) H Pro-B-Type Natriuretic Peptide 45979 pg/mL (0-125) H Total Protein 7.5 G/DL (6.4-8.2) Albumin 2.1 G/DL (3.4-5.0) L Globulin 5.4 g/dL Albumin/Globulin Ratio 0.4 (1.0-2.7) L Plan Problems: (1) Sepsis Assessment & Plan: 78-year-old male with sepsis, febrile, leukocytosis, bilateral foot amputations with left foot cellulitis and amputation site. Concerning for possible osteomyelitis. On IV antibiotics as per infectious disease. Leukocytosis improving. No active drainage noted from wound. Ulceration noted on lateral aspect of wound. Seems chronic overall. Noted to have a UTI. Blood cultures as below. No acute surgical intervention planned. IV antibiotics as per infectious disease Bone scan pending Trend labs Thank you for this consultation we will follow with recommendations (2) Cellulitis of foot Assessment & Plan: Status post amputation at the mid foot. No definite appearing acute osseous destruction or periosteal reaction identified. Possible small focus of soft tissue ulceration or air at the anterior lateral aspect of the stump, clinically correlate. Findings: . There is increased blood flow to the left foot compared to the right. There is increased blood pool activity that is asymmetric indicative of cellulitis at the stump. Delayed planar images demonstrate mild focal increased activity at one of the areas probably along the lateral side of the transmetatarsal amputation. Please correlate with the location of the ulcer and consider evaluation with MRI for more specific evaluation of the anatomy involved. MRI ordered Mariusz Diehl Dec 15, 2018 15:28
--- NOTE | 2018-12-15 16:00 | NUR ---
NURSE NOTES: Dr LUNSFORD visited pt and he did wound treatment. will continue to monitor.
[2018-12-15] MEDS: LORazepam Inj 2mg/ml 1ml IV PRN (16:01)
--- NOTE | 2018-12-15 16:20 | NUR ---
NURSE NOTES: Dr VANEGAS notified about HTN, order noted and carried out. will continue to monitor
[2018-12-15] MEDS: dilTIAZem HCl 30mg tab ORAL SCH (17:26)
--- NOTE | 2018-12-15 17:50 | NUR ---
NURSE NOTES: pt is stable, left unit for MRI waiting to come back.
--- NOTE | 2018-12-15 19:30 | NUR ---
NURSE NOTES: Received a report from Angelina Kat. Pt is sleeping. Pt is in stable condition. No c/o pain/discomfort. IV site is patent and intact. Bed in lowest position. Bed alarm is on. Call light within reach. Will continue to monitor.
--- NOTE | 2018-12-15 19:43 | NUR ---
HAND-OFF: Report given to BENJAMIN HERNANDEZ. Pt is stable.
--- NOTE | 2018-12-15 20:26 | NUR ---
CASE MANAGEMENT: REVIEW SI: SEPSIS . LEFT FOOT ABSCESS T 98.6 HR 95 RR 18 BP 173/84 SAT 97% ROOM AIR WBC 14.8 H/H 8.5/27.9 BONE SCAN -- FINDINGS CONCERNING FOR ACUTE OSTEOMYELITIS IS: CARDIZEM PO TID ERTAPENEM IV Q24HR PROTONIX IV Q12HR MED/SURG STATUS DCP: PATIENT IS FROM [facility] PLAN: MRI LEFT FOOT
[2018-12-15] MEDS: Ertapenem 0.5 GM in NS 55 ML IVPB SCH (20:52)
--- NOTE | 2018-12-15 21:32 | Diagnostic Imaging Report ---
APPROVED REPORT CPT Code: 78334 Present Symptoms Comments: LEFT LEG PAIN. LEFT LEG: Venous imaging reveals a patent deep venous system. There is no evidence of thrombus within the femoral, popliteal or tibial segments. The greater saphenous vein is also within normal limits. Doppler indicates normal spontaneous flow within these segments.
[2018-12-16] VITALS: BP 185/96
--- NOTE | 2018-12-16 01:00 | NUR ---
NURSE NOTES: Pt is agitated right now.
--- NOTE | 2018-12-16 01:10 | NUR ---
NURSE NOTES: Pt refused the catapres. He spat out the catapres. Charge Nurse Nieves made aware.
[2018-12-16 04:00] VITALS: BP 182/90
[2018-12-16] MEDS: D5NS 1,000 ML IV SCH (04:45)
[2018-12-16] MEDS: NovoLOG Insulin Flexpen SUBQ SCH ×4 (06:16→20:53)
[2018-12-16 06:53] LABS: EOSINOPHILS % (AUTO) 0.5 % (0.0-3.0); HEMATOCRIT 28.1 % (42.0-52.0); HEMOGLOBIN 8.6 G/DL (14.2-18.0); LYMPHOCYTES % (AUTO) 14.8 % (20.0-45.0); MEAN CORPUSCULAR VOLUME 88 FL (80-99); MONOCYTES % (AUTO) 6.9 % (1.0-10.0); NEUTROPHILS % (AUTO) 76.9 % (45.0-75.0); PLATELET COUNT 321 K/UL (150-450); RED CELL DISTRIBUTION WIDTH 14.4 % (11.6-14.8); WHITE BLOOD COUNT 11.2 K/UL (4.8-10.8)
[2018-12-16 07:08] LABS: ALANINE AMINOTRANSFERASE 10 U/L (12-78); ALBUMIN 2.3 G/DL (3.4-5.0); ALBUMIN/GLOBULIN RATIO 0.4 (1.0-2.7); ALKALINE PHOSPHATASE 254 U/L (46-116); ANION GAP 11 mmol/L (5-15); ASPARTATE AMINO TRANSFERASE 20 U/L (15-37); BILIRUBIN,TOTAL 0.4 MG/DL (0.2-1.0); BLOOD UREA NITROGEN 29 mg/dL (7-18); CALCIUM 10.1 MG/DL (8.5-10.1); CARBON DIOXIDE 22 MMOL/L (21-32); CHLORIDE 122 MMOL/L (98-107); CREATININE 1.6 MG/DL (0.55-1.30); POTASSIUM 3.5 MMOL/L (3.5-5.1); SODIUM 155 MMOL/L (136-145)
--- NOTE | 2018-12-16 07:15 | NUR ---
HAND-OFF: Report given to Jovany Barragan RN.
--- NOTE | 2018-12-16 07:44 | NUR ---
NURSE NOTES: Received report from BENJAMIN Baum. Patient in bed resting, no active s/s cardiac, respiratory distress noticed at this time. Patient AOx0-1, confused. Endorsed elevated BP during the night. Dr. Crawford made aware of elevated BP, no order given at this time. IV on left FA 22G, asymptomatic, patent, intact. Bed in lowest position, side rails upx2, call light within reach, bed alarm on. Will continue to monitor.
[2018-12-16 08:00] VITALS: BP 170/92
--- NOTE | 2018-12-16 08:15 | Progress Note ---
DATE: 12/15/2018 SUBJECTIVE: The patient is awake, alert, afebrile, and hemodynamically stable. PHYSICAL EXAMINATION: VITAL SIGNS: Blood pressure is 171/89, his pulse is 102, respirations 18, and temperature 99.5. HEENT: Eyes are normal. ENT, mucous membranes are moist and intact. NECK: Supple with no JVD without lymph nodes. Tracheostomy site is clean. LUNGS: Clear without rhonchi, rales, or wheezing. Secretions are small, thin, and shannon. HEART: Normal sounds with regular beats. There is no S3, S4, or pericardial rub. ABDOMEN: Soft, obese, and nontender with normal bowel sounds. EXTREMITIES: Warm without cyanosis, clubbing, or edema. LABORATORY AND DIAGNOSTIC DATA: His hemoglobin is 8.5, hematocrit 27.9 with MCV of 88, WBC of 14.6, and platelets 273. His WBC was 19.4 yesterday and 23.3 the day before. BUN and creatinine are 37 and 2.0 respectively, they were 52 and 2.4 yesterday. Sodium is 148, potassium 4.1, chloride 116, and CO2 is 22. His uric acid is 11.2. SGOT and SGPT are normal. Alkaline phosphatase is 273. CRP is elevated. ProBNP is bone scan revealed possibility of osteomyelitis, acute in the left foot . Today, it was switched to 30 t.i.d. the patient continues to be . The patient received carvedilol 6.25 b.i.d. and Aldactone 25 mg daily. Repeat laboratory tests will be done in the a.m. Ayush Chang M.D. DR: GENARO JOB#: [id number] CC:
--- NOTE | 2018-12-16 08:22 | NUR ---
RADIOLOGY DEPT., CHEST X-RAY DONE.-P.DYE
[2018-12-16] MEDS: Pantoprazole Inj IVP SCH ×2 (08:31→20:48)
[2018-12-16] MEDS: Spironolactone 25mg tab ORAL SCH (08:32)
[2018-12-16] MEDS: LORazepam Inj 2mg/ml 1ml IV PRN ×2 (08:32→20:10)
[2018-12-16] MEDS: dilTIAZem HCl 30mg tab ORAL SCH ×2 (08:32→12:18)
[2018-12-16] MEDS: Docusate 100mg cap ORAL SCH ×3 (08:32→17:00)
[2018-12-16 08:44] LABS: PHOSPHORUS 1.6 MG/DL (2.5-4.9)
[2018-12-16] MEDS ORDERED: Vancomycin 1.25gm/NS Premix IVPB ONE (09:00)
[2018-12-16] MEDS: D5 1/2NS 1,000 ML IV SCH ×2 (10:49→21:50)
[2018-12-16] MEDS: Heparin 5000 units/ml inj SUBQ SCH ×2 (11:10→20:53)
--- NOTE | 2018-12-16 11:25 | NUR ---
MRI LEFT FOOT AND ANKLE/DISTAL TIBIA COMPLETED. ANKLE/DISTAL TIBIA COMPLETED TO EVAL FOR EXTENT OF OSTEO. PT CELLULITIS AND SKIN BREAKDOWN APPEARED TO EXTEND SLIGHTLY ABOVE ANKLE. TJB 11:29
[2018-12-16 12:00] VITALS: BP 177/81
--- NOTE | 2018-12-16 12:00 | NUR ---
NURSE NOTES: Dr. Crawford at the nursing station, patient spit out medication, BP 177/89, HR 111. Per Dr. Crawford will order clonidine patch.
--- NOTE | 2018-12-16 12:32 | Diagnostic Imaging Report ---
APPROVED REPORT CPT Code: 50759 Symptoms Comments: Pain Comments Technically difficult study due to calcific interference and pain. 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 Color flow duplex sonography reveals a moderate (50-65%) stenosis at the proximal to mid superficial femoral artery. The popliteal artery has moderate (50-65%) stenosis. The tibioperoneal trunks are not well visualized. The posterior tibial, anterior tibial and dorsalis pedis arteries are also heavily calcified. Doppler tibial artery waveform analysis is monophasic and with diminished amplitude flow, consistent with severe ischemia at rest. Incidental findings: Enlarged inguinal nodes are seen in the left inguinal region.
--- NOTE | 2018-12-16 12:38 | Pulmonology Progress Note ---
Assessment/Plan Problems: (1) Hypertension (2) Bacteremia (3) Acute encephalopathy (4) Sepsis (5) UTI (urinary tract infection) (6) Osteomyelitis (7) ATN (acute tubular necrosis) (8) Diabetes mellitus (9) History of hypertension Assessment/Plan add clonidine patch for BP, since pt spitting out all oral meds. iv fluids iv abx, BC persistently positive sliding sclale check cxr and bnp in am all reviewed dvt prophylaxis Subjective ROS Limited/Unobtainable: No Constitutional: Reports: no symptoms HEENT: Repors: no symptoms Respiratory: Reports: no symptoms Allergies: Coded Allergies: PENICILLINS (Verified Allergy, Unknown, 12/11/18) Objective Last 24 Hour Vital Signs Date Time Temp Pulse Resp B/P (MAP) Pulse Ox O2 Delivery O2 Flow Rate FiO2 12/16/18 12:18 111 177/89 12/16/18 09:00 Nasal Cannula 2.0 12/16/18 08:32 170/92 12/16/18 08:32 111 170/92 12/16/18 08:00 97.8 111 20 170/92 (118) 94 12/16/18 06:15 111 182/90 12/16/18 04:00 98.1 111 20 182/90 (120) 95 12/16/18 00:00 99.1 102 20 185/96 (125) 96 12/15/18 21:35 99.5 12/15/18 21:00 Nasal Cannula 2.0 12/15/18 20:00 99.5 102 18 171/89 (116) 100 12/15/18 19:35 96 Room Air 21 12/15/18 19:35 97 18 96 Room Air 21 12/15/18 18:00 163/80 (107) 12/15/18 17:26 95 173/84 12/15/18 16:32 173/84 12/15/18 16:00 98.6 95 18 173/84 (113) 97 Intake and Output 12/15/18 12/16/18 19:00 07:00 Intake Total 900 ml 580 ml Balance 900 ml 580 ml IV Total 900 ml 580 ml General Appearance: WD/WN HEENT: normocephalic Respiratory/Chest: chest wall non-tender, normal breath sounds, chest wall tender Cardiovascular: regular rhythm Abdomen: normal bowel sounds, no organomegaly Extremities: no clubbing Neurologic/Psychiatric: shagger II-XII grossly normal Microbiology Date/Time Source Procedure Growth Status 12/15/18 02:15 Sputum Gram Stain - Final Resulted 12/15/18 02:15 Sputum Sputum Culture Pending Resulted Laboratory Tests 12/16/18 06:14: White Blood Count 11.2H, Red Blood Count 3.20L, Hemoglobin 8.6L, Hematocrit 28.1L, Mean Corpuscular Volume 88, Mean Corpuscular Hemoglobin 26.9L, Mean Corpuscular Hemoglobin Concent 30.6L, Red Cell Distribution Width 14.4, Platelet Count 321, Mean Platelet Volume 6.7, Neutrophils (%) (Auto) 76.9H, Lymphocytes (%) (Auto) 14.8L, Monocytes (%) (Auto) 6.9, Eosinophils (%) (Auto) 0.5, Basophils (%) (Auto) 1.0, Sodium Level 155H, Potassium Level 3.5, Chloride Level 122H, Carbon Dioxide Level 22, Anion Gap 11, Blood Urea Nitrogen 29H, Creatinine 1.6H, Estimat Glomerular Filtration Rate , Glucose Level 185H, Calcium Level 10.1, Phosphorus Level 1.6L, Magnesium Level 1.6L, Total Bilirubin 0.4, Aspartate Amino Transf (AST/SGOT) 20, Alanine Aminotransferase ( ALT/SGPT) 10L, Alkaline Phosphatase 254H, Pro-B-Type Natriuretic Peptide 25693L , Total Protein 7.8, Albumin 2.3L, Globulin 5.5, Albumin/Globulin Ratio 0.4L, Random Vancomycin Level 16.1 Current Medications Medications (Trade) Dose Ordered Sig/Cammy Route PRN Reason Start Time Stop Time Status Last Admin Dose Admin Acetaminophen (Tylenol) 650 mg Q4H PRN ORAL T>100.5 12/14/18 19:00 01/10/19 18:59 Albuterol/ Ipratropium (Albuterol/ Ipratropium) 3 ml Q4H PRN HHN Shortness of Breath 12/14/18 19:00 12/16/18 18:59 Allopurinol (Allopurinol) 300 mg DAILY ORAL 12/15/18 09:00 01/14/19 08:59 12/16/18 08:32 Carvedilol (Coreg) 3.125 mg BIAC ORAL 12/16/18 06:30 01/15/19 06:29 12/16/18 06:15 Clonidine HCl (Catapres TTS-1) 1 patch QWEEK TDERMAL 12/16/18 13:00 01/15/19 12:59 Clonidine HCl (Catapres Tab) 0.1 mg Q6H PRN ORAL For High Blood Pressure 12/15/18 16:00 01/14/19 15:59 12/16/18 08:32 Dextrose (Dextrose 50%) 25 ml Q30M PRN IV Hypoglycemia 12/14/18 18:45 01/11/19 17:14 Dextrose (Dextrose 50%) 50 ml Q30M PRN IV Hypoglycemia 12/14/18 18:45 01/11/19 17:14 Dextrose/Sodium Chloride 1,000 ml @ 75 mls/hr [id number] IV 12/16/18 08:30 01/15/19 08:29 12/16/18 10:49 Diltiazem HCl (Cardizem) 30 mg TID ORAL 12/15/18 18:00 01/14/19 17:59 12/16/18 08:32 Diphenhydramine HCl (Benadryl) 25 mg Q6H PRN IVP Itching 12/14/18 19:00 01/13/19 18:59 12/15/18 08:18 Docusate Sodium (Colace) 100 mg THREE TIMES A DAY ORAL 12/15/18 09:00 01/11/19 12:59 12/16/18 08:32 Epoetin William (Epoetin William-EPBX(NON ESRD)) 10,000 unit SUBQ 12/14/18 21:00 01/13/19 20:59 12/14/18 20:57 Ertapenem 0.5 gm/ Sodium Chloride 55 ml @ 110 mls/hr Q24H IVPB 12/14/18 20:00 12/18/18 19:59 12/15/18 20:52 Heparin Sodium (Porcine) (Heparin 5000 units/ml) 5,000 units EVERY 12 HOURS SUBQ 12/14/18 21:00 01/10/19 20:59 12/16/18 11:10 Hydromorphone HCl (Dilaudid) 1 mg Q4H PRN IVP For Pain 12/14/18 21:00 12/21/18 20:59 12/15/18 21:05 Insulin Aspart (NovoLOG) BEFORE MEALS AND HS SUBQ 12/14/18 21:00 01/11/19 20:59 12/16/18 12:17 Lorazepam (Ativan 2mg/ml 1ml) 2 mg Q4H PRN IV For Anxiety 12/15/18 12:30 12/22/18 12:29 12/16/18 08:32 Morphine Sulfate (Morphine Sulfate) 2 mg Q4H PRN IV For Pain 12/15/18 12:30 12/22/18 12:29 Ondansetron HCl (Zofran) 4 mg Q6H PRN IVP Nausea & Vomiting 12/14/18 19:00 01/10/19 18:59 Pantoprazole (Protonix) 40 mg Q12HR IVP 12/14/18 21:00 01/11/19 08:59 12/16/18 08:31 Polyethylene Glycol (Miralax) 17 gm DAILYPRN PRN ORAL Constipation 12/14/18 19:00 01/13/19 18:59 Spironolactone (Aldactone) 25 mg DAILY ORAL 12/16/18 09:00 01/15/19 08:59 12/16/18 08:32 Vancomycin HCl (Vanco rx to dose) 1 ea DAILY PRN MISC . 12/15/18 09:00 01/10/19 17:59 Karrie Crawford MD Dec 16, 2018 12:38
--- NOTE | 2018-12-16 12:51 | Nephrology Progress Note ---
Assessment/Plan Problem List: (1) Renal failure (ARF), acute on chronic Assessment: Cr down to 2.4 (2) Altered mental status (3) UTI (urinary tract infection) (4) Sepsis (5) Hypotension Assessment: shock Assessment Septic shock- was on pressors , now is off Diabetic nephropathy CKD Anemia s/p foot and LE amputations Plan Dilaudid for pain mag and phos supplement as needed Avoid nephrotoxics allopurinol urine studies 2D echo Left ventricular ejection fraction estimated to be 55-60 %. Kidney TELLO noted keep BP and BS in check Anemia daley per orders Subjective ROS Limited/Unobtainable: No Constitutional: Reports: malaise, weakness Objective Objective Last 24 Hour Vital Signs Date Time Temp Pulse Resp B/P (MAP) Pulse Ox O2 Delivery O2 Flow Rate FiO2 12/16/18 12:18 111 177/89 12/16/18 09:00 Nasal Cannula 2.0 12/16/18 08:32 170/92 12/16/18 08:32 111 170/92 12/16/18 08:00 97.8 111 20 170/92 (118) 94 12/16/18 06:15 111 182/90 12/16/18 04:00 98.1 111 20 182/90 (120) 95 12/16/18 00:00 99.1 102 20 185/96 (125) 96 12/15/18 21:35 99.5 12/15/18 21:00 Nasal Cannula 2.0 12/15/18 20:00 99.5 102 18 171/89 (116) 100 12/15/18 19:35 96 Room Air 21 12/15/18 19:35 97 18 96 Room Air 21 12/15/18 18:00 163/80 (107) 12/15/18 17:26 95 173/84 12/15/18 16:32 173/84 12/15/18 16:00 98.6 95 18 173/84 (113) 97 Intake and Output 12/15/18 12/16/18 19:00 07:00 Intake Total 900 ml 580 ml Balance 900 ml 580 ml IV Total 900 ml 580 ml Laboratory Tests 12/16/18 06:14: White Blood Count 11.2H, Red Blood Count 3.20L, Hemoglobin 8.6L, Hematocrit 28.1L, Mean Corpuscular Volume 88, Mean Corpuscular Hemoglobin 26.9L, Mean Corpuscular Hemoglobin Concent 30.6L, Red Cell Distribution Width 14.4, Platelet Count 321, Mean Platelet Volume 6.7, Neutrophils (%) (Auto) 76.9H, Lymphocytes (%) (Auto) 14.8L, Monocytes (%) (Auto) 6.9, Eosinophils (%) (Auto) 0.5, Basophils (%) (Auto) 1.0, Sodium Level 155H, Potassium Level 3.5, Chloride Level 122H, Carbon Dioxide Level 22, Anion Gap 11, Blood Urea Nitrogen 29H, Creatinine 1.6H, Estimat Glomerular Filtration Rate , Glucose Level 185H, Calcium Level 10.1, Phosphorus Level 1.6L, Magnesium Level 1.6L, Total Bilirubin 0.4, Aspartate Amino Transf (AST/SGOT) 20, Alanine Aminotransferase ( ALT/SGPT) 10L, Alkaline Phosphatase 254H, Pro-B-Type Natriuretic Peptide 17599Y , Total Protein 7.8, Albumin 2.3L, Globulin 5.5, Albumin/Globulin Ratio 0.4L, Random Vancomycin Level 16.1 Height (Feet): 5 Height (Inches): 6.00 Weight (Pounds): 176 General Appearance: no apparent distress Objective no change Naveed Vanegas MD Dec 16, 2018 12:51
[2018-12-16] MEDS: HYDROmorphone 1mg/ml Carpuject IVP PRN (13:44)
[2018-12-16] MEDS ORDERED: Potassium Phosphate 30 MM in NS 275 ML IV SCH (14:00)
[2018-12-16] MEDS: dilTIAZem HCl 60mg tab ORAL SCH ×2 (14:00→22:00)
[2018-12-16] MEDS ORDERED: Heparin1,000 units/500ml Premix(Conc:2 units/ml) IV PRN (14:15)
[2018-12-16] MEDS ORDERED: Lidocaine 1% Plain 30 ml INJ PRN (14:15)
--- NOTE | 2018-12-16 14:17 | NUR ---
NURSE NOTES: Per Dr. Diehl, PICC line placement due to osteomyelitis. Order noted, entered, carried out. Will continue to monitor.
--- NOTE | 2018-12-16 15:10 | NUR ---
*-* INSURANCE *-* ALL AVAILABLE CLINICALS AND REVIEW S HAVE BEEN FAXED TO: [employer] MARIBELL: CHELLE P:[phone] F:[phone] (FAX ALL CLINICALS) REF# [id number]
--- NOTE | 2018-12-16 15:28 | Infectious Diseases Prog Note ---
Assessment/Plan Assessment/Plan Assessment/Plan: 78 yo male with PMHx of DM, HTN , PVP s/p B/L Mid foot amps who presented to the ED on 12/11/18 with left foot infection. Bactremia : MRSA and StrpGrp B Sepsic shock - resolved Left foot infection Wnd Cx : MRSA and StrpGrp B Cellulits / OM - Bone scan for OM left foot : acute osteomyelitis. Difficult to anatomically locate the area involved. Foot X-ray 12/11/18 - Possible small focus of soft tissue ulceration or air at the anterior lateral aspect of the stump, clinically correlate. No definite appearing acute osseous destruction or periosteal reaction identified. Fever to 102 - Resolved Leukocytosis, improving Septicemia =- Likely from foot infection Blood Cx 12/11/18 - Grp B strep Blood Cx 12/13/18 - Pend TTE - No veg DM HTN PVP s/p B/L Mid foot amps PLAN - Continue Vancomycin # 5 and DC Ertapenem # 5 - 12/13/18 S/P Amikacin #2 - f/u wound Cx - Repeat blood Cx - recommend I/D of the Lt foot - Monitor CBC and Temps - MRI :P - Pod cons :P case was DW Surg Subjective Allergies: Coded Allergies: PENICILLINS (Verified Allergy, Unknown, 12/11/18) Subjective MRI : P Afebrile Objective Vital Signs Last 24 Hour Vital Signs Date Time Temp Pulse Resp B/P (MAP) Pulse Ox O2 Delivery O2 Flow Rate FiO2 12/16/18 14:00 111 177/89 12/16/18 13:30 177/89 12/16/18 12:18 111 177/89 12/16/18 12:00 98.6 107 22 177/81 (113) 98 12/16/18 09:00 Nasal Cannula 2.0 12/16/18 08:32 170/92 12/16/18 08:32 111 170/92 12/16/18 08:00 97.8 111 20 170/92 (118) 94 12/16/18 06:15 111 182/90 12/16/18 04:00 98.1 111 20 182/90 (120) 95 12/16/18 00:00 99.1 102 20 185/96 (125) 96 12/15/18 21:35 99.5 12/15/18 21:00 Nasal Cannula 2.0 12/15/18 20:00 99.5 102 18 171/89 (116) 100 12/15/18 19:35 96 Room Air 21 12/15/18 19:35 97 18 96 Room Air 21 12/15/18 18:00 163/80 (107) 12/15/18 17:26 95 173/84 12/15/18 16:32 173/84 12/15/18 16:00 98.6 95 18 173/84 (113) 97 Height (Feet): 5 Height (Inches): 6.00 Weight (Pounds): 176 HEENT: mucous membranes moist Respiratory/Chest: normal breath sounds Cardiovascular: normal rate Abdomen: normal bowel sounds Microbiology Date/Time Source Procedure Growth Status 12/15/18 02:15 Sputum Gram Stain - Final Resulted 12/15/18 02:15 Sputum Sputum Culture Pending Resulted Laboratory Tests Test 12/16/18 06:14 White Blood Count 11.2 K/UL (4.8-10.8) H Red Blood Count 3.20 M/UL (4.70-6.10) L Hemoglobin 8.6 G/DL (14.2-18.0) L Hematocrit 28.1 % (42.0-52.0) L Mean Corpuscular Volume 88 FL (80-99) Mean Corpuscular Hemoglobin 26.9 PG (27.0-31.0) L Mean Corpuscular Hemoglobin Concent 30.6 G/DL (32.0-36.0) L Red Cell Distribution Width 14.4 % (11.6-14.8) Platelet Count 321 K/UL (150-450) Mean Platelet Volume 6.7 FL (6.5-10.1) Neutrophils (%) (Auto) 76.9 % (45.0-75.0) H Lymphocytes (%) (Auto) 14.8 % (20.0-45.0) L Monocytes (%) (Auto) 6.9 % (1.0-10.0) Eosinophils (%) (Auto) 0.5 % (0.0-3.0) Basophils (%) (Auto) 1.0 % (0.0-2.0) Sodium Level 155 MMOL/L (136-145) H Potassium Level 3.5 MMOL/L (3.5-5.1) Chloride Level 122 MMOL/L (98-107) H Carbon Dioxide Level 22 MMOL/L (21-32) Anion Gap 11 mmol/L (5-15) Blood Urea Nitrogen 29 mg/dL (7-18) H Creatinine 1.6 MG/DL (0.55-1.30) H Estimat Glomerular Filtration Rate mL/min (>60) Glucose Level 185 MG/DL (74-106) H Calcium Level 10.1 MG/DL (8.5-10.1) Phosphorus Level 1.6 MG/DL (2.5-4.9) L Magnesium Level 1.6 MG/DL (1.8-2.4) L Total Bilirubin 0.4 MG/DL (0.2-1.0) Aspartate Amino Transf (AST/SGOT) 20 U/L (15-37) Alanine Aminotransferase (ALT/SGPT) 10 U/L (12-78) L Alkaline Phosphatase 254 U/L (46-116) H Pro-B-Type Natriuretic Peptide 70176 pg/mL (0-125) H Total Protein 7.8 G/DL (6.4-8.2) Albumin 2.3 G/DL (3.4-5.0) L Globulin 5.5 g/dL Albumin/Globulin Ratio 0.4 (1.0-2.7) L Random Vancomycin Level 16.1 ug/mL Current Medications Medications (Trade) Dose Ordered Sig/Cammy Route PRN Reason Start Time Stop Time Status Last Admin Dose Admin Acetaminophen (Tylenol) 650 mg Q4H PRN ORAL T>100.5 12/14/18 19:00 01/10/19 18:59 Albuterol/ Ipratropium (Albuterol/ Ipratropium) 3 ml Q4H PRN HHN Shortness of Breath 12/14/18 19:00 12/16/18 18:59 Allopurinol (Allopurinol) 300 mg DAILY ORAL 12/15/18 09:00 01/14/19 08:59 12/16/18 08:32 Carvedilol (Coreg) 6.25 mg Q12HR ORAL 12/16/18 21:00 01/15/19 06:29 Chlorhexidine Gluconate (Yi-Hex 2%) 1 applic DAILY@1999 TOPIC 12/16/18 20:00 01/15/19 19:59 Clonidine HCl (Catapres TTS-1) 1 patch QWEEK TDERMAL 12/16/18 13:00 01/15/19 12:59 12/16/18 13:30 Clonidine HCl (Catapres Tab) 0.1 mg Q6H PRN ORAL For High Blood Pressure 12/15/18 16:00 01/14/19 15:59 12/16/18 08:32 Dextrose (Dextrose 50%) 25 ml Q30M PRN IV Hypoglycemia 12/14/18 18:45 01/11/19 17:14 Dextrose (Dextrose 50%) 50 ml Q30M PRN IV Hypoglycemia 12/14/18 18:45 01/11/19 17:14 Dextrose/Sodium Chloride 1,000 ml @ 75 mls/hr [id number] IV 12/16/18 08:30 01/15/19 08:29 12/16/18 10:49 Diltiazem HCl (Cardizem) 60 mg Q8HR ORAL 12/16/18 14:00 01/14/19 17:59 Diphenhydramine HCl (Benadryl) 25 mg Q6H PRN IVP Itching 12/14/18 19:00 01/13/19 18:59 12/15/18 08:18 Docusate Sodium (Colace) 100 mg THREE TIMES A DAY ORAL 12/15/18 09:00 01/11/19 12:59 12/16/18 08:32 Epoetin William (Epoetin William-EPBX(NON ESRD)) 10,000 unit FRI-FRI-FRI SUBQ 12/14/18 21:00 01/13/19 20:59 12/14/18 20:57 Ertapenem 0.5 gm/ Sodium Chloride 55 ml @ 110 mls/hr Q24H IVPB 12/14/18 20:00 12/18/18 19:59 12/15/18 20:52 Heparin Sodium (Porcine) (Heparin 5000 units/ml) 5,000 units EVERY 12 HOURS SUBQ 12/14/18 21:00 01/10/19 20:59 12/16/18 11:10 Heparin Sodium/ Sodium Chloride (Heparin 1000 units/500ml Premix) 1,000 unit ONCE PRN IV PICC PLACEMENT 12/16/18 14:15 12/18/18 23:59 Hydromorphone HCl (Dilaudid) 1 mg Q4H PRN IVP For Pain 12/14/18 21:00 12/21/18 20:59 12/16/18 13:44 Insulin Aspart (NovoLOG) BEFORE MEALS AND HS SUBQ 12/14/18 21:00 01/11/19 20:59 12/16/18 12:17 Lidocaine HCl (Xylocaine 1% 30ml) 30 ml ONCE PRN INJ PICC PLACEMENT 12/16/18 14:15 12/18/18 23:59 Lorazepam (Ativan 2mg/ml 1ml) 2 mg Q4H PRN IV For Anxiety 12/15/18 12:30 12/22/18 12:29 12/16/18 08:32 Magnesium Sulfate 100 ml @ 100 mls/hr Q1H IVPB 12/16/18 13:00 12/16/18 15:59 12/16/18 14:34 Morphine Sulfate (Morphine Sulfate) 2 mg Q4H PRN IV For Pain 12/15/18 12:30 12/22/18 12:29 Ondansetron HCl (Zofran) 4 mg Q6H PRN IVP Nausea & Vomiting 12/14/18 19:00 01/10/19 18:59 Pantoprazole (Protonix) 40 mg Q12HR IVP 12/14/18 21:00 01/11/19 08:59 12/16/18 08:31 Polyethylene Glycol (Miralax) 17 gm DAILYPRN PRN ORAL Constipation 12/14/18 19:00 01/13/19 18:59 Spironolactone (Aldactone) 25 mg DAILY ORAL 12/16/18 09:00 01/15/19 08:59 12/16/18 08:32 Vancomycin HCl (Vanco rx to dose) 1 ea DAILY PRN MISC . 12/15/18 09:00 01/10/19 17:59 Casa Martin MD Dec 16, 2018 15:28
--- NOTE | 2018-12-16 15:38 | NUR ---
RADIOLOGY NOTE: LEFT UPPER PICC PLACED.
--- NOTE | 2018-12-16 15:50 | NUR ---
RD ASSESSMENT & RECOMMENDATIONS SEE CARE ACTIVITY FOR COMPLETE ASSESSMENT DAILY ESTIMATED NEEDS: Needs based on Sepsis, 55.5kg abw 25-35 kcals/kg 2609-4335 total kcals 1-2 g protein/kg 56-111 g total protein 25-30 mL/kg 4243-9244 total fluid mLs NUTRITION DIAGNOSIS: Altered nutrition related lab values R/T sepsis, clinical condition as evidenced by critically elev wbc (26.1* ->11.2), hypotensive, now off pressor support and hypertensive, Tmax of 102.2-> now afebrile, elev BNP (66457 -> ), elev creat (3.3 ->1.6), low phos (1.6), low mag (1.6). CURRENT DIET:Renal, CCHO Med/ soft easy chew PO DIET RECOMMENDATIONS: Liberalized LOW NA, CCHO MED/ texture as tolerated or per [employer] SPECIALIST SUPERVISOR ADDITIONAL RECOMMENDATIONS: * Per SNF: HT=5'0", JI=374uvs (12/10/18) * Consider [employer]IST SUPERVISOR evaluation for appropriate texture * Monitor lytes, replete as needed (low phos and mag) * Wound healing: add MVI x 1, Vit C 250mg QD, Andres 1pkt BID * Monitor PO intake closely -> rec DC renal diet, liberalize to low Na (no need for renal restriction, creat improved, lytes low) -> consider appetite stimulant w/ continued poor PO
--- NOTE | 2018-12-16 15:55 | Diagnostic Imaging Report ---
Indication: Ulcer on plantar surface near area of transmetatarsal amputation Technique: Sagittal, axial, coronal T1 FSE and FSE STIR images obtained of the foot Comparison: Plain radiographs of the foot dated 12/11/2018, bone scan dated 12/14/2018 Findings: Patient is status post midfoot amputation. The level of the amputation appears to be at the level of the proximal second third and fourth metatarsals and at the first metatarsal phalangeal joint. There is questionably a fragment of the fifth metatarsal base present. There is marked distortion of the midfoot anatomy, probably due to remodeling related to Charcot changes. There is abnormal increased STIR and decreased T1 signal within the cuboid. This appears to be adjacent to a soft tissue ulcer that is marked with an MRI marker. There is also suggestion of abnormal T1 and STIR signal within and is probably the fourth metatarsal stump. As mentioned above, there is questionably a fifth metatarsal base fragment present which if real also probably contains abnormal signal. No other definite marrow signal abnormality is evident. There is edema of the lateral, anterior, and dorsal soft tissues. No definite drainable fluid collection to suggest abscess is demonstrated. IMPRESSION: Findings compatible with osteomyelitis of the cuboid, and possibly of the fourth metatarsal stump. There is questionably a fragment of the fifth metatarsal stump present which if real is probably also involvement with osteomyelitis. This correlates with findings demonstrated on recent bone scan. Extensive lateral, dorsal, plantar soft tissue edema and associated ulcer. This is nonspecific, but probably indicate cellulitis given stated clinical history
[2018-12-16 16:00] VITALS: BP 179/90
--- NOTE | 2018-12-16 16:09 | Diagnostic Imaging Report ---
Indication: Reason For Exam: OSTEOMY Technique: Axial, sagittal, and coronal T1 FSE and FSE STIR images obtained of the left ankle Comparison: Reference made to bone scan dated 12/14/2018, plain radiograph dated 12/11/2018 Findings: Exam is very limited, bordering on nondiagnostic, due to motion artifact. However, essentially the same anatomy is included on separate foot MRI, reported separately, which is of significantly better quality. The current study includes slightly more on the distal tibia and fibula. Please refer to the foot MRI for the pertinent findings Impression: Limited bordering on nondiagnostic exam due to excessive motion artifact. Please refer to separate report of MRI of the left foot, which includes the same anatomy but demonstrates much better image quality.
--- NOTE | 2018-12-16 16:46 | NUR ---
NURSE NOTES: PICC line placed on left upper arm, asymptomatic, no bleeding. Will continue to monitor.
--- NOTE | 2018-12-16 16:49 | Diagnostic Imaging Report ---
Indications: Needs long-term IV access Technique: Ultrasound confirms patent compressible left basilic vein. Total sterile technique, including sterile probe cover and sterile gel, hat, mask, sterile gown, large sterile drape, and preparation with 2% chlorhexidine utilized. Local anesthesia with 1% lidocaine. Under real-time ultrasound guidance, puncture basilic vein using 21-gauge needle, documented and archived, passage 0.018 guidewire under direct fluoroscopy, which was used to determine appropriate catheter length, exchange for 4 Maltese peel-away sheath. 4 Maltese Bard dual-lumen power PICC cut to 41 cm. It was inserted through the peel-away sheath. Peel-away sheath and guidewire removed. Catheter fixed to the skin. Both catheter ports aspirated and flushed. Patient tolerated procedure well, without immediate complication. Digital radiograph documents satisfactory catheter tip position, at the cavoatrial junction. Total fluoroscopy time 16.3 seconds. Total dose area product [id number] mGym2 Total number of images: 1 Impression: Successful placement of of the PICC under sonographic and fluoroscopic guidance, as described above.
--- NOTE | 2018-12-16 17:24 | NUR ---
NURSE NOTES: Dr. Crawford made aware clonidine patch given 3 hour ago, BP still high 180/76, HR 97, patient still spit out oral intake, unable to administer PO prn med. No order given at this time. Will continue to monitor. Addendum: 12/16/18 at 1741 by JOSE DANIEL HERNANDEZ RN per Dr. Crawford, no need to order more medication, patch may take more time to be effective.
--- NOTE | 2018-12-16 17:41 | Diagnostic Imaging Report ---
Indication: Shortness of breath Technique: One view of the chest Comparison: 12/12/2018 Findings: Bilateral interstitial edema appears slightly worse than on the prior exam. There is suggestion of a small left pleural effusion. The heart remains borderline enlarged. Impression: Bilateral interstitial edema, slightly increased from previous exam of 4 days earlier. Possible small left pleural effusion
--- NOTE | 2018-12-16 19:10 | NUR ---
HAND-OFF: Report given to BENJAMIN Argueta.
--- NOTE | 2018-12-16 19:30 | NUR ---
NURSE NOTES: Pt received in bed, yelling, restless, attempting to disrobe. Patient was covered up and repositioned. Will monitor.
[2018-12-16 20:00] VITALS: BP 170/79
--- NOTE | 2018-12-16 20:00 | NUR ---
NURSE NOTES: Patient still extremely restless, noticed pulling on reyes catheter; reyes was re-secured to thigh. Patient was also pulling on his PICC line despite being covered with Kerlix. Will give ativan prn as ordered.
--- NOTE | 2018-12-16 20:36 | NUR ---
CASE MANAGEMENT: REVIEW SI: SEPSIS . LEFT FOOT ABSCESS PICC PLACEMENT 12/16 T 98.7 HR 101 RR 22 BP 179/90 SAT 99% NC/2L WBC 11.2 H/H 8.6/28.1 MRI LEFT FOOT --FINDINGS COMPATIBLE WITH OSTEOMYELITIS OF THE CUBOID IS: CARDIZEM PO TID ERTAPENEM IV Q24HR PROTONIX IV Q12HR MED/SURG STATUS DCP: PATIENT IS FROM [facility]
[2018-12-16] MEDS: Carvedilol 6.25mg Tab ORAL SCH (20:47)
[2018-12-16] MEDS: Dyna-Hex 2% Top Sol 2oz TOPIC SCH (20:48)
[2018-12-16] MEDS: Epoetin Alfa-EPBX (NON ESRD)10,000 unit/ml vial SUBQ SCH (20:53)
--- NOTE | 2018-12-16 21:15 | NUR ---
NURSE NOTES: Patient drowsy from ativan but still attempts to touch/pull on reyes catheter and PICC line while eyes closed. Call placed to Dr. Chang for additional orders.
--- NOTE | 2018-12-16 21:45 | NUR ---
NURSE NOTES: Order received for bilateral soft wrist restraints. Soft wrist restraints applied to patient; will continue close monitoring. Addendum: 12/16/18 at 2301 by MARGO GO RN RN Granddaughter updated with patient's status; incl patient being on soft wrist restraints.
--- NOTE | 2018-12-16 22:02 | Surgery Progress Note ---
Surgery Progress Note Subjective Additional Comments no acute events labs noted family at bedside leukocytosis on abx podiatry input mri Objective Last 24 Hour Vital Signs Date Time Temp Pulse Resp B/P (MAP) Pulse Ox O2 Delivery O2 Flow Rate FiO2 12/16/18 21:30 92 18 95 Room Air 21 12/16/18 21:30 95 Room Air 21 12/16/18 16:00 98.7 101 22 179/90 (119) 99 12/16/18 14:00 111 177/89 12/16/18 13:30 177/89 12/16/18 12:18 111 177/89 12/16/18 12:00 98.6 107 22 177/81 (113) 98 12/16/18 09:00 Nasal Cannula 2.0 12/16/18 08:32 170/92 12/16/18 08:32 111 170/92 12/16/18 08:15 97 18 96 Room Air 21 12/16/18 08:15 98 Room Air 21 12/16/18 08:00 97.8 111 20 170/92 (118) 94 12/16/18 06:15 111 182/90 12/16/18 04:00 98.1 111 20 182/90 (120) 95 12/16/18 00:00 99.1 102 20 185/96 (125) 96 I&O Intake and Output 12/15/18 12/16/18 19:00 07:00 Intake Total 900 ml 580 ml Balance 900 ml 580 ml IV Total 900 ml 580 ml Laboratory Tests Test 12/16/18 06:14 White Blood Count 11.2 K/UL (4.8-10.8) H Red Blood Count 3.20 M/UL (4.70-6.10) L Hemoglobin 8.6 G/DL (14.2-18.0) L Hematocrit 28.1 % (42.0-52.0) L Mean Corpuscular Volume 88 FL (80-99) Mean Corpuscular Hemoglobin 26.9 PG (27.0-31.0) L Mean Corpuscular Hemoglobin Concent 30.6 G/DL (32.0-36.0) L Red Cell Distribution Width 14.4 % (11.6-14.8) Platelet Count 321 K/UL (150-450) Mean Platelet Volume 6.7 FL (6.5-10.1) Neutrophils (%) (Auto) 76.9 % (45.0-75.0) H Lymphocytes (%) (Auto) 14.8 % (20.0-45.0) L Monocytes (%) (Auto) 6.9 % (1.0-10.0) Eosinophils (%) (Auto) 0.5 % (0.0-3.0) Basophils (%) (Auto) 1.0 % (0.0-2.0) Sodium Level 155 MMOL/L (136-145) H Potassium Level 3.5 MMOL/L (3.5-5.1) Chloride Level 122 MMOL/L (98-107) H Carbon Dioxide Level 22 MMOL/L (21-32) Anion Gap 11 mmol/L (5-15) Blood Urea Nitrogen 29 mg/dL (7-18) H Creatinine 1.6 MG/DL (0.55-1.30) H Estimat Glomerular Filtration Rate mL/min (>60) Glucose Level 185 MG/DL (74-106) H Calcium Level 10.1 MG/DL (8.5-10.1) Phosphorus Level 1.6 MG/DL (2.5-4.9) L Magnesium Level 1.6 MG/DL (1.8-2.4) L Total Bilirubin 0.4 MG/DL (0.2-1.0) Aspartate Amino Transf (AST/SGOT) 20 U/L (15-37) Alanine Aminotransferase (ALT/SGPT) 10 U/L (12-78) L Alkaline Phosphatase 254 U/L (46-116) H Pro-B-Type Natriuretic Peptide 81694 pg/mL (0-125) H Total Protein 7.8 G/DL (6.4-8.2) Albumin 2.3 G/DL (3.4-5.0) L Globulin 5.5 g/dL Albumin/Globulin Ratio 0.4 (1.0-2.7) L Random Vancomycin Level 16.1 ug/mL Plan Problems: (1) Sepsis Assessment & Plan: 78-year-old male with sepsis, febrile, leukocytosis, bilateral foot amputations with left foot cellulitis and amputation site. Concerning for possible osteomyelitis. On IV antibiotics as per infectious disease. Leukocytosis improving. No active drainage noted from wound. Ulceration noted on lateral aspect of wound. Seems chronic overall. Noted to have a UTI. Blood cultures as below. No acute surgical intervention planned. 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 There is questionably a fragment of the fifth metatarsal stump present which if real is probably also involvement with osteomyelitis. This correlates with findings demonstrated on recent bone scan. Extensive lateral, dorsal, plantar soft tissue edema and associated ulcer. This is nonspecific, but probably indicate cellulitis given stated clinical history Podiatry input Trend labs Thank you for this consultation we will follow with recommendations (2) Cellulitis of foot Assessment & Plan: Status post amputation at the mid foot. No definite appearing acute osseous destruction or periosteal reaction identified. Possible small focus of soft tissue ulceration or air at the anterior lateral aspect of the stump, clinically correlate. Findings: . There is increased blood flow to the left foot compared to the right. There is increased blood pool activity that is asymmetric indicative of cellulitis at the stump. Delayed planar images demonstrate mild focal increased activity at one of the areas probably along the lateral side of the transmetatarsal amputation. Please correlate with the location of the ulcer and consider evaluation with MRI for more specific evaluation of the anatomy involved. 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 There is questionably a fragment of the fifth metatarsal stump present which if real is probably also involvement with osteomyelitis. This correlates with findings demonstrated on recent bone scan. Extensive lateral, dorsal, plantar soft tissue edema and associated ulcer. This is nonspecific, but probably indicate cellulitis given stated clinical history Mariusz Diehl Dec 16, 2018 22:02
[2018-12-17] VITALS: BP 178/94
--- NOTE | 2018-12-17 00:37 | NUR ---
NURSE NOTES: Pt seen by Dr. Chang at bedside. Notified regarding increased BP despite clonidine patch. Also made aware patient spits out oral medications including blood pressure medications. New orders received.
[2018-12-17] MEDS: HYDROmorphone 1mg/ml Carpuject IVP PRN (00:44)
[2018-12-17] MEDS: D5 1/2NS 1,000 ML IV SCH ×3 (00:45→12:17)
[2018-12-17] MEDS: Nitroglycerin 2% oint pkt TOPIC PRN ×2 (00:52→05:10)
[2018-12-17] MEDS: LORazepam Inj 2mg/ml 1ml IV PRN ×2 (01:58→05:56)
[2018-12-17 04:00] VITALS: BP 172/89
[2018-12-17] MEDS: dilTIAZem HCl 60mg tab ORAL SCH ×4 (05:13→22:00)
--- NOTE | 2018-12-17 05:45 | NUR ---
NURSE NOTES: Patient seen by Dr. Camara at bedside.
[2018-12-17] MEDS: NovoLOG Insulin Flexpen SUBQ SCH ×4 (05:56→20:26)
[2018-12-17 06:28] LABS: ALANINE AMINOTRANSFERASE 11 U/L (12-78); ALBUMIN/GLOBULIN RATIO 0.4 (1.0-2.7); ALKALINE PHOSPHATASE 212 U/L (46-116); ANION GAP 10 mmol/L (5-15); ASPARTATE AMINO TRANSFERASE 18 U/L (15-37); BILIRUBIN,TOTAL 0.4 MG/DL (0.2-1.0); BLOOD UREA NITROGEN 25 mg/dL (7-18); CALCIUM 9.5 MG/DL (8.5-10.1); CARBON DIOXIDE 24 MMOL/L (21-32); CHLORIDE 121 MMOL/L (98-107); CREATININE 1.7 MG/DL (0.55-1.30); PHOSPHORUS 3.3 MG/DL (2.5-4.9); POTASSIUM 3.4 MMOL/L (3.5-5.1); SODIUM 155 MMOL/L (136-145)
--- NOTE | 2018-12-17 07:15 | NUR ---
NURSE NOTES: HANDOFF RECEIVED FROM BENJAMIN ARAGON. PATIENT RECEIVED STABLE, RESTING IN BED. CALL LIGHT WITHIN REACH, BED IN THE LOW AND LOCKED POSITION. PATIENT IS ALERT AND ABLE TO MAKE NEEDS KNOWN. IV SITE IS CLEAN DRY AND INTACT, RUNNING PRESCRIBED FLUIDS. WILL CONTINUE TO MONITOR.
--- NOTE | 2018-12-17 07:33 | NUR ---
HAND-OFF: Report given to Blake ALEXANDER.
[2018-12-17 08:00] VITALS: BP 163/89
[2018-12-17] MEDS: Carvedilol 6.25mg Tab ORAL SCH ×2 (09:00→09:13)
[2018-12-17] MEDS: Docusate 100mg cap ORAL SCH ×4 (09:00→18:14)
[2018-12-17] MEDS: Spironolactone 25mg tab ORAL SCH ×2 (09:00→09:13)
[2018-12-17] MEDS: Pantoprazole Inj IVP SCH ×2 (09:13→20:20)
[2018-12-17] MEDS: Heparin 5000 units/ml inj SUBQ SCH ×2 (09:14→20:22)
[2018-12-17] MEDS ORDERED: Vancomycin 1 GM in NS 275 ML IVPB SCH (11:30)
--- NOTE | 2018-12-17 11:45 | Progress Note ---
DATE: 12/16/2018 SUBJECTIVE: The patient is afebrile, hemodynamically stable. His blood pressures have been insufficiently controlled. PHYSICAL EXAMINATION: VITAL SIGNS: Blood pressure 170/79, his pulse is 106, respirations of 20, and temperature 98.6. HEENT: Eyes were normal. ENT, mucous membranes were moist and intact. NECK: Supple with no JVD without lymph nodes. Tracheostomy site is clean. LUNGS: Clear without rhonchi, rales, or wheezing. Secretions are small, thin, and shannon. HEART: Normal sounds with regular beats. There is no S3, S4, or pericardial rub. ABDOMEN: Soft and nontender with normal bowel sounds. EXTREMITIES: Warm without cyanosis, clubbing, or edema. LABORATORY AND DIAGNOSTIC DATA: Hemoglobin is 8.6, hematocrit 28.1 with MCV of 88, WBC 11.2, and platelets 321,000. His BUN and creatinine are 29 and 1.6 respectively. His sodium is 155, potassium 3.5, chloride 122, and CO2 is 22. His phosphorus is 1.5 and magnesium is 1.6. ProBNP increased from 1294 to 1973. the patient became agitated, attempted to pull the Lyles out. IV antibiotics have been corrected multiple times, but . . Diltiazem dose has been increased now to 60 mg t.i.d. IMPRESSION: The patient . Repeat laboratory tests will be done in the a.m. Ayush Chang M.D. DR: KURT JOB#: [id number] CC:
[2018-12-17 12:00] VITALS: BP 168/73
--- NOTE | 2018-12-17 12:02 | NUR ---
SWALLOW STATUS: REFERRED FOR SWALLOW EVAL BY DR VANEGAS. COMPLETED CHART REVIEW. PATIENT IS NOT ALERT FOR SWALLOW EVAL, WILL CHECK LATER. IF PATIENT NOT ALERT FOR EXTENDED PERIOD OF TIME, CONSIDER TEMPORARY NONORAL FEEDINGS UNTIL MORE ALERT. CONTINUE WITH ORAL CARE PLAN: F/UP LATER TODAY OR TOMORROW WHEN MORE ALERT D/W BENJAMIN RIVERA
--- NOTE | 2018-12-17 12:06 | Pulmonology Progress Note ---
Assessment/Plan Problems: (1) Sepsis (2) Cellulitis (3) Osteomyelitis (4) Bacteremia (5) UTI (urinary tract infection) (6) ATN (acute tubular necrosis) (7) Diabetes mellitus (8) History of hypertension (9) Hypertension Assessment/Plan BP better with clonidine patch, since pt spitting out all oral meds. iv fluids MRI reviewed,acute osteomyelitis. iv abx, BC persistently positive sliding sclale check cxr and bnp in am all reviewed dvt prophylaxis Subjective ROS Limited/Unobtainable: Yes Allergies: Coded Allergies: PENICILLINS (Verified Allergy, Unknown, 12/11/18) Objective Last 24 Hour Vital Signs Date Time Temp Pulse Resp B/P (MAP) Pulse Ox O2 Delivery O2 Flow Rate FiO2 12/17/18 09:00 Room Air Room Air 12/17/18 09:00 101 163/89 12/17/18 08:10 101 20 94 Nasal Cannula 2.0 28 12/17/18 08:10 94 Nasal Cannula 2.0 28 12/17/18 08:00 98.4 106 20 163/89 (113) 95 12/17/18 05:10 172/89 12/17/18 04:00 98.9 108 20 172/89 (116) 95 12/17/18 00:52 178/94 12/17/18 00:00 99.0 104 20 178/94 (122) 95 12/16/18 21:30 92 18 95 Room Air 21 12/16/18 21:30 95 Room Air 21 12/16/18 21:00 Room Air 2.0 12/16/18 20:00 98.6 106 20 170/79 (109) 96 12/16/18 16:00 98.7 101 22 179/90 (119) 99 12/16/18 14:00 111 177/89 12/16/18 13:30 177/89 12/16/18 12:18 111 177/89 Intake and Output 12/16/18 12/17/18 19:00 07:00 Intake Total 950 ml 960 ml Output Total 900 ml 1200 ml Balance 50 ml -240 ml Intake Oral 50 ml IV Total 960 ml Other 900 ml Output Urine Total 900 ml 1200 ml General Appearance: WD/WN HEENT: atraumatic, mucous membranes moist Respiratory/Chest: lungs clear Cardiovascular: normal peripheral pulses, normal rate Abdomen: normal bowel sounds, soft, non tender Genitourinary: normal external genitalia Microbiology Date/Time Source Procedure Growth Status 12/15/18 02:15 Sputum Gram Stain - Final Complete 12/15/18 02:15 Sputum Culture - Final Chanell Albicans Complete Laboratory Tests 12/17/18 05:40: Sodium Level 155H, Potassium Level 3.4L, Chloride Level 121H, Carbon Dioxide Level 24, Anion Gap 10, Blood Urea Nitrogen 25H, Creatinine 1.7H, Estimat Glomerular Filtration Rate , Glucose Level 205H, Uric Acid 11.0H, Calcium Level 9.5, Phosphorus Level 3.3, Magnesium Level 2.0, Total Bilirubin 0.4, Aspartate Amino Transf (AST/SGOT) 18, Alanine Aminotransferase (ALT/SGPT) 11L, Alkaline Phosphatase 212H, C-Reactive Protein, Quantitative 16.8H, Pro-B-Type Natriuretic Peptide 44752P, Total Protein 7.3, Albumin 2.0L, Globulin 5.3, Albumin/Globulin Ratio 0.4L 12/17/18 09:53: Arterial Blood pH 7.398, Arterial Blood Partial Pressure CO2 34.5L, Arterial Blood Partial Pressure O2 71.3L, Arterial Blood HCO3 20.8L, Arterial Blood Oxygen Saturation 93.8L, Arterial Blood Base Excess -3.5L, Kristian Test Positive Current Medications Medications (Trade) Dose Ordered Sig/Cammy Route PRN Reason Start Time Stop Time Status Last Admin Dose Admin Acetaminophen (Tylenol) 650 mg Q4H PRN ORAL T>100.5 12/14/18 19:00 01/10/19 18:59 Allopurinol (Allopurinol) 300 mg DAILY ORAL 12/15/18 09:00 01/14/19 08:59 12/16/18 08:32 Carvedilol (Coreg) 6.25 mg Q12HR ORAL 12/16/18 21:00 01/15/19 06:29 Chlorhexidine Gluconate (Yi-Hex 2%) 1 applic DAILY@1999 TOPIC 12/16/18 20:00 01/15/19 19:59 12/16/18 20:48 Clonidine HCl (Catapres TTS-1) 1 patch QWEEK TDERMAL 12/16/18 13:00 01/15/19 12:59 12/16/18 13:30 Clonidine HCl (Catapres Tab) 0.1 mg Q6H PRN ORAL For High Blood Pressure 12/15/18 16:00 01/14/19 15:59 12/16/18 08:32 Dextrose (Dextrose 50%) 25 ml Q30M PRN IV Hypoglycemia 12/14/18 18:45 01/11/19 17:14 Dextrose (Dextrose 50%) 50 ml Q30M PRN IV Hypoglycemia 12/14/18 18:45 01/11/19 17:14 Dextrose/Sodium Chloride 1,000 ml @ 100 mls/hr Q10H IV 12/17/18 08:30 01/16/19 08:29 12/17/18 00:45 Diltiazem HCl (Cardizem) 60 mg Q8HR ORAL 12/16/18 14:00 01/14/19 17:59 Diphenhydramine HCl (Benadryl) 25 mg Q6H PRN IVP Itching 12/14/18 19:00 01/13/19 18:59 12/15/18 08:18 Docusate Sodium (Colace) 100 mg THREE TIMES A DAY ORAL 12/15/18 09:00 01/11/19 12:59 12/16/18 08:32 Epoetin William (Epoetin William-EPBX(NON ESRD)) 10,000 unit FRI-FRI-FRI SUBQ 12/14/18 21:00 01/13/19 20:59 12/16/18 20:53 Heparin Sodium (Porcine) (Heparin 5000 units/ml) 5,000 units EVERY 12 HOURS SUBQ 12/14/18 21:00 01/10/19 20:59 12/17/18 09:14 Heparin Sodium/ Sodium Chloride (Heparin 1000 units/500ml Premix) 1,000 unit ONCE PRN IV PICC PLACEMENT 12/16/18 14:15 12/18/18 23:59 Hydromorphone HCl (Dilaudid) 1 mg Q4H PRN IVP For Pain 12/14/18 21:00 12/21/18 20:59 12/17/18 00:44 Insulin Aspart (NovoLOG) BEFORE MEALS AND HS SUBQ 12/14/18 21:00 01/11/19 20:59 12/17/18 05:56 Lidocaine HCl (Xylocaine 1% 30ml) 30 ml ONCE PRN INJ PICC PLACEMENT 12/16/18 14:15 12/18/18 23:59 Lorazepam (Ativan 2mg/ml 1ml) 2 mg Q4H PRN IV For Anxiety 12/15/18 12:30 12/22/18 12:29 12/17/18 05:56 Morphine Sulfate (Morphine Sulfate) 2 mg Q4H PRN IV For Pain 12/15/18 12:30 12/22/18 12:29 Nitroglycerin (Nitro-Bid) 1 inch Q4HR PRN TOPIC For High Blood Pressure 12/17/18 00:45 01/16/19 00:44 12/17/18 05:10 Ondansetron HCl (Zofran) 4 mg Q6H PRN IVP Nausea & Vomiting 12/14/18 19:00 01/10/19 18:59 Pantoprazole (Protonix) 40 mg Q12HR IVP 12/14/18 21:00 01/11/19 08:59 12/17/18 09:13 Polyethylene Glycol (Miralax) 17 gm DAILYPRN PRN ORAL Constipation 12/14/18 19:00 01/13/19 18:59 Spironolactone (Aldactone) 25 mg DAILY ORAL 12/16/18 09:00 01/15/19 08:59 12/16/18 08:32 Vancomycin HCl (Vanco rx to dose) 1 ea DAILY PRN MISC . 12/15/18 09:00 01/10/19 17:59 Vancomycin HCl 1 gm/Sodium Chloride 275 ml @ 183.708 mls/hr ONCE IVPB 12/17/18 11:30 12/17/18 13:00 Karrie Crawford MD Dec 17, 2018 12:06
--- NOTE | 2018-12-17 12:44 | Infectious Diseases Prog Note ---
Assessment/Plan Assessment/Plan Assessment/Plan: 78 yo male with PMHx of DM, HTN , PVP s/p B/L Mid foot amps who presented to the ED on 12/11/18 with left foot infection. 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 There is questionably a fragment of the fifth metatarsal stump present which if real is probably also involvement with osteomyelitis. Bone scan for OM left foot : acute osteomyelitis. Difficult to anatomically locate the area involved. Foot X-ray 12/11/18 - Possible small focus of soft tissue ulceration or air at the anterior lateral aspect of the stump, clinically correlate. No definite appearing acute osseous destruction or periosteal reaction identified. Fever to 102 - Resolved Leukocytosis, improving Septicemia =- Likely from foot infection Blood Cx 12/11/18 - Grp B strep Blood Cx 12/13/18 - Pend TTE - No veg DM HTN PVP s/p B/L Mid foot amps PLAN - Continue Vancomycin # 5 and DC Ertapenem # 5 - 12/13/18 S/P Amikacin #2 - recommend I/D of the Lt foot - Monitor CBC and Temp - Pod cons :P - Rpt Blood Cx Subjective Allergies: Coded Allergies: PENICILLINS (Verified Allergy, Unknown, 12/11/18) Subjective Afebrile Objective Vital Signs Last 24 Hour Vital Signs Date Time Temp Pulse Resp B/P (MAP) Pulse Ox O2 Delivery O2 Flow Rate FiO2 12/17/18 09:00 Room Air Room Air 12/17/18 09:00 101 163/89 12/17/18 08:10 101 20 94 Nasal Cannula 2.0 28 12/17/18 08:10 94 Nasal Cannula 2.0 28 12/17/18 08:00 98.4 106 20 163/89 (113) 95 12/17/18 05:10 172/89 12/17/18 04:00 98.9 108 20 172/89 (116) 95 12/17/18 00:52 178/94 12/17/18 00:00 99.0 104 20 178/94 (122) 95 12/16/18 21:30 92 18 95 Room Air 21 12/16/18 21:30 95 Room Air 21 12/16/18 21:00 Room Air 2.0 12/16/18 20:00 98.6 106 20 170/79 (109) 96 12/16/18 16:00 98.7 101 22 179/90 (119) 99 12/16/18 14:00 111 177/89 12/16/18 13:30 177/89 Height (Feet): 5 Height (Inches): 6.00 Weight (Pounds): 182 HEENT: anicteric Respiratory/Chest: lungs clear Cardiovascular: normal peripheral pulses Abdomen: no organomegaly Microbiology Date/Time Source Procedure Growth Status 12/15/18 02:15 Sputum Gram Stain - Final Complete 12/15/18 02:15 Sputum Culture - Final Chanell Albicans Complete Laboratory Tests Test 12/17/18 05:40 12/17/18 09:53 Sodium Level 155 MMOL/L (136-145) H Potassium Level 3.4 MMOL/L (3.5-5.1) L Chloride Level 121 MMOL/L (98-107) H Carbon Dioxide Level 24 MMOL/L (21-32) Anion Gap 10 mmol/L (5-15) Blood Urea Nitrogen 25 mg/dL (7-18) H Creatinine 1.7 MG/DL (0.55-1.30) H Estimat Glomerular Filtration Rate mL/min (>60) Glucose Level 205 MG/DL (74-106) H Uric Acid 11.0 MG/DL (2.6-7.2) H Calcium Level 9.5 MG/DL (8.5-10.1) Phosphorus Level 3.3 MG/DL (2.5-4.9) Magnesium Level 2.0 MG/DL (1.8-2.4) Total Bilirubin 0.4 MG/DL (0.2-1.0) Aspartate Amino Transf (AST/SGOT) 18 U/L (15-37) Alanine Aminotransferase (ALT/SGPT) 11 U/L (12-78) L Alkaline Phosphatase 212 U/L (46-116) H C-Reactive Protein, Quantitative 16.8 mg/dL (0.00-0.90) H Pro-B-Type Natriuretic Peptide 45842 pg/mL (0-125) H Total Protein 7.3 G/DL (6.4-8.2) Albumin 2.0 G/DL (3.4-5.0) L Globulin 5.3 g/dL Albumin/Globulin Ratio 0.4 (1.0-2.7) L Arterial Blood pH 7.398 (7.350-7.450) Arterial Blood Partial Pressure CO2 34.5 mmHg (35.0-45.0) L Arterial Blood Partial Pressure O2 71.3 mmHg (75.0-100.0) L Arterial Blood HCO3 20.8 mmol/L (22.0-26.0) L Arterial Blood Oxygen Saturation 93.8 % (95-100) L Arterial Blood Base Excess -3.5 (-2-2) L Kristian Test Positive Current Medications Medications (Trade) Dose Ordered Sig/Cammy Route PRN Reason Start Time Stop Time Status Last Admin Dose Admin Acetaminophen (Tylenol) 650 mg Q4H PRN ORAL T>100.5 12/14/18 19:00 01/10/19 18:59 Allopurinol (Allopurinol) 300 mg DAILY ORAL 12/15/18 09:00 01/14/19 08:59 12/16/18 08:32 Carvedilol (Coreg) 6.25 mg Q12HR ORAL 12/16/18 21:00 01/15/19 06:29 Chlorhexidine Gluconate (Yi-Hex 2%) 1 applic DAILY@2000 TOPIC 12/16/18 20:00 01/15/19 19:59 12/16/18 20:48 Clonidine HCl (Catapres TTS-1) 1 patch QWEEK TDERMAL 12/16/18 13:00 01/15/19 12:59 12/16/18 13:30 Clonidine HCl (Catapres Tab) 0.1 mg Q6H PRN ORAL For High Blood Pressure 12/15/18 16:00 01/14/19 15:59 12/16/18 08:32 Dextrose (Dextrose 50%) 25 ml Q30M PRN IV Hypoglycemia 12/14/18 18:45 01/11/19 17:14 Dextrose (Dextrose 50%) 50 ml Q30M PRN IV Hypoglycemia 12/14/18 18:45 01/11/19 17:14 Dextrose/Sodium Chloride 1,000 ml @ 100 mls/hr Q10H IV 12/17/18 08:30 01/16/19 08:29 12/17/18 12:17 Diltiazem HCl (Cardizem) 60 mg Q8HR ORAL 12/16/18 14:00 01/14/19 17:59 Diphenhydramine HCl (Benadryl) 25 mg Q6H PRN IVP Itching 12/14/18 19:00 01/13/19 18:59 12/15/18 08:18 Docusate Sodium (Colace) 100 mg THREE TIMES A DAY ORAL 12/15/18 09:00 01/11/19 12:59 12/16/18 08:32 Epoetin William (Epoetin William-EPBX(NON ESRD)) 10,000 unit FRI-FRI-FRI SUBQ 12/14/18 21:00 01/13/19 20:59 12/16/18 20:53 Heparin Sodium (Porcine) (Heparin 5000 units/ml) 5,000 units EVERY 12 HOURS SUBQ 12/14/18 21:00 01/10/19 20:59 12/17/18 09:14 Heparin Sodium/ Sodium Chloride (Heparin 1000 units/500ml Premix) 1,000 unit ONCE PRN IV PICC PLACEMENT 12/16/18 14:15 12/18/18 23:59 Hydromorphone HCl (Dilaudid) 1 mg Q4H PRN IVP For Pain 12/14/18 21:00 12/21/18 20:59 12/17/18 00:44 Insulin Aspart (NovoLOG) BEFORE MEALS AND HS SUBQ 12/14/18 21:00 01/11/19 20:59 12/17/18 05:56 Lidocaine HCl (Xylocaine 1% 30ml) 30 ml ONCE PRN INJ PICC PLACEMENT 12/16/18 14:15 12/18/18 23:59 Lorazepam (Ativan 2mg/ml 1ml) 2 mg Q4H PRN IV For Anxiety 12/15/18 12:30 12/22/18 12:29 12/17/18 05:56 Morphine Sulfate (Morphine Sulfate) 2 mg Q4H PRN IV For Pain 12/15/18 12:30 12/22/18 12:29 Nitroglycerin (Nitro-Bid) 1 inch Q4HR PRN TOPIC For High Blood Pressure 12/17/18 00:45 01/16/19 00:44 12/17/18 05:10 Ondansetron HCl (Zofran) 4 mg Q6H PRN IVP Nausea & Vomiting 12/14/18 19:00 01/10/19 18:59 Pantoprazole (Protonix) 40 mg Q12HR IVP 12/14/18 21:00 01/11/19 08:59 12/17/18 09:13 Polyethylene Glycol (Miralax) 17 gm DAILYPRN PRN ORAL Constipation 12/14/18 19:00 01/13/19 18:59 Spironolactone (Aldactone) 25 mg DAILY ORAL 12/16/18 09:00 01/15/19 08:59 12/16/18 08:32 Vancomycin HCl (Vanco rx to dose) 1 ea DAILY PRN MISC . 12/15/18 09:00 01/10/19 17:59 Vancomycin HCl 1 gm/Sodium Chloride 275 ml @ 183.708 mls/hr ONCE IVPB 12/17/18 11:30 12/17/18 13:00 12/17/18 12:17 Casa Martin MD Dec 17, 2018 12:44
--- NOTE | 2018-12-17 13:07 | NUR ---
RD ASSESSMENT & RECOMMENDATIONS SEE CARE ACTIVITY FOR COMPLETE ASSESSMENT DAILY ESTIMATED NEEDS: Needs based on Sepsis, 55.5kg abw 25-35 kcals/kg 5575-1995 total kcals 1-2 g protein/kg 56-111 g total protein 25-30 mL/kg 0653-4181 total fluid mLs NUTRITION DIAGNOSIS: * Swallowing difficulty R/T reduced alertness as evidenced by DIRECTOR BROADCAST recommends temporary nonoral feeding at this time. * Altered nutrition related lab values R/T sepsis, clinical condition as evidenced by critically elev wbc (26.1* ->11.2), hypotensive, now off pressor support and hypertensive, Tmax of 102.2-> now afebrile, elev BNP (44028 -> 59663), elev creat (3.3 ->1.7), low phos (1.6 -> wnl), low mag (1.6-> wnl). CURRENT DIET:Renal, CCHO Med/ soft easy chew PO DIET RECOMMENDATIONS: IF SAFE FOR PO -> LOW NA, CCHO MED (Texture per DIRECTOR BROADCAST) ENTERAL NUTRITION RECOMMENDATIONS: Glucerna 1.5 @ 45ml/hr x 24 hrs to provide 1080ml, 1620kcal, 89g prot, 820ml free water * W/ GI access, initiate Glucerna 1.5 @ 15ml/hr x 6 hrs * Advance 10ml q 4-6 hrs as tolerated to goal rate * HOB over 30 degrees/ water flush per MD ADDITIONAL RECOMMENDATIONS: * Per SNF: HT=5'0", XZ=236tuf (12/10/18)/ Calibrate bedscale wt * W/ TF initiation, monitor lytes, daily, replete as needed (high risk for refeeding syndrome, poor PO intake since adm) * W/ oral diet, monitor PO intake, rec liberalized low Na, CCHO Med (no need for renal restriction, creat improved, lytes low) * Wound healing:add MVI x1, Vit C 250mg QD, Andres 1pkt BID .
--- NOTE | 2018-12-17 13:09 | NUR ---
REFERRED BY DR VANEGAS FOR SWALLOW EVAL, SEE REPORT. DYSPHAGIA RISK FACTORS FOR THIS 78 Y.O. NAMIBIAN-SPEAKING ([facility]) MALE: SEPSIS, UTI, SEVERE PAIN LEFT FOOT, AMS H/O MOTILITY D/O (? PHASE) BUT NO REPORTED DYSPHAGIA/DYSPEPSIA, GERD WAS ON MEDS, DM2, LT INSULIN, PVD, CHRONIC PAIN SYNDROME, HTN, HEART FAILURE, MDD, AKF, PER FAMILY OK TO HAVE TEMPORARY NGT BUT NOT PEG AT THIS TIME. PT WAS ON A COSMO CCHO AT [facility] REG TEXTURE AND THIN LIQUID DIET. PER RD PT HAS OBESITY CLASS I (170 LBS) AND NOW ON RENAL DIET CCHO-MED AND RECOMMENDED TO HAVE LOW NA CCHO-MED. PER FAMILY, THE PATIENT HASN'T EATEN FOR 5 DAYS. EDENTULOUS AND NOT ALERT. RAPID RR ON 3 LITER O2 NC INITIAL IMPRESSIONS: HIGH RISK FOR DYSPHAGIA (NOT ALERT) AND POOR TO NO INTAKE GIVEN REDUCED ALERTNESS AND RR QUESTIONABLE SILENT ASPIRATION RISK. PER SCHOOL COMMISSIONER, DEAN, HAS ORAL SECRETIONS THAT NEED TO BE REMOVED. RECOMMENDATIONS GIVEN NO PO FOR 5 DAYS AND POOR ALERTNESS, CONSIDER TEMPORARY NGT (SMALL BORE 12 SAMI) AND ORAL CARE FOR NOW (NO PO) WHEN MORE ALERT, CONSIDER MOD BARIUM SWALLOW STUDY TO ASSESS SWALLOW VERSUS BEDSIDE PO TRIALS WITH CARE COORDINATOR. DR VANEGAS AGREES WITH RECOMMENDATIONS FAMILY WANTS PT TO HAVE NGT TEMPORARILY BUT NO PEG STAFF AWARE OF ORAL CARE NEEDS AND SUCTION PRN D/W BENJAMIN RUBI AND TONI (TO PLACE TF RECOMMENDATIONS.
--- NOTE | 2018-12-17 14:28 | Nephrology Progress Note ---
Assessment/Plan Problem List: (1) Renal failure (ARF), acute on chronic Assessment: Cr down to 2.4 (2) Altered mental status (3) UTI (urinary tract infection) (4) Sepsis (5) Hypotension Assessment: shock Assessment Septic shock- was on pressors , now is off Diabetic nephropathy CKD Anemia s/p foot and LE amputations Plan Dilaudid for pain change IV to D5 mag and phos supplement as needed Avoid nephrotoxics allopurinol urine studies 2D echo Left ventricular ejection fraction estimated to be 55-60 %. Kidney TELLO noted keep BP and BS in check Anemia daley per orders Subjective ROS Limited/Unobtainable: No Constitutional: Reports: malaise, weakness Objective Objective Last 24 Hour Vital Signs Date Time Temp Pulse Resp B/P (MAP) Pulse Ox O2 Delivery O2 Flow Rate FiO2 12/17/18 12:00 99.2 98 20 168/73 (104) 100 12/17/18 09:00 Room Air Room Air 12/17/18 09:00 101 163/89 12/17/18 08:10 101 20 94 Nasal Cannula 2.0 28 12/17/18 08:10 94 Nasal Cannula 2.0 28 12/17/18 08:00 98.4 106 20 163/89 (113) 95 12/17/18 05:10 172/89 12/17/18 04:00 98.9 108 20 172/89 (116) 95 12/17/18 00:52 178/94 12/17/18 00:00 99.0 104 20 178/94 (122) 95 12/16/18 21:30 92 18 95 Room Air 21 12/16/18 21:30 95 Room Air 21 12/16/18 21:00 Room Air 2.0 12/16/18 20:00 98.6 106 20 170/79 (109) 96 12/16/18 16:00 98.7 101 22 179/90 (119) 99 Intake and Output 12/16/18 12/17/18 19:00 07:00 Intake Total 950 ml 960 ml Output Total 900 ml 1200 ml Balance 50 ml -240 ml Intake Oral 50 ml IV Total 960 ml Other 900 ml Output Urine Total 900 ml 1200 ml Laboratory Tests 12/17/18 05:40: Sodium Level 155H, Potassium Level 3.4L, Chloride Level 121H, Carbon Dioxide Level 24, Anion Gap 10, Blood Urea Nitrogen 25H, Creatinine 1.7H, Estimat Glomerular Filtration Rate , Glucose Level 205H, Uric Acid 11.0H, Calcium Level 9.5, Phosphorus Level 3.3, Magnesium Level 2.0, Total Bilirubin 0.4, Aspartate Amino Transf (AST/SGOT) 18, Alanine Aminotransferase (ALT/SGPT) 11L, Alkaline Phosphatase 212H, C-Reactive Protein, Quantitative 16.8H, Pro-B-Type Natriuretic Peptide 36452H, Total Protein 7.3, Albumin 2.0L, Globulin 5.3, Albumin/Globulin Ratio 0.4L 12/17/18 09:53: Arterial Blood pH 7.398, Arterial Blood Partial Pressure CO2 34.5L, Arterial Blood Partial Pressure O2 71.3L, Arterial Blood HCO3 20.8L, Arterial Blood Oxygen Saturation 93.8L, Arterial Blood Base Excess -3.5L, Kristian Test Positive Height (Feet): 5 Height (Inches): 6.00 Weight (Pounds): 182 General Appearance: no apparent distress Cardiovascular: normal rate Respiratory/Chest: decreased breath sounds Objective no change Naveed Vanegas MD Dec 17, 2018 14:28
--- NOTE | 2018-12-17 14:46 | NUR ---
NURSE NOTES: PATIENT JUST LEFT THE FLOOR FOR MRI OF THE RIGHT FOOT. Addendum: 12/17/18 at 1650 by Blake Cruz RN REPORTED ON WRONG PATIENT CHART. PLEASE IGNORE THE NOTE ABOVE.
--- NOTE | 2018-12-17 15:10 | NUR ---
NURSE NOTES: CHARGE NURSE PLACED NG TUBE. WILL FOLLOW ORDERS RECEIVED.
--- NOTE | 2018-12-17 15:48 | Diagnostic Imaging Report ---
Indication: NG tube placement Comparison: None Single view of the abdomen obtained Findings: Bowel gas pattern is nonspecific. No mass, ectopic calcifications, or abnormal gas collections are identified. The bones are unremarkable. NG tube is present within the stomach in good position. Impression: NG tube satisfactory in position
[2018-12-17 16:00] VITALS: BP 171/80
--- NOTE | 2018-12-17 16:00 | NUR ---
NURSE NOTES: NG TUBE PLACEMENT VERIFIED VIA XRAY.
--- NOTE | 2018-12-17 16:50 | NUR ---
NURSE NOTES: DILTIAZEM/ CARDIZEM ADMINISTERED LATE BECAUSE PATIENT WAS NPO AND DID NOT HAVE AN NG TUBE TO GIVE MEDS THROUGH. MED GIVEN NOW VIA NG TUBE.
--- NOTE | 2018-12-17 19:08 | NUR ---
HAND-OFF: Report given to BENJAMIN ARAGON.
--- NOTE | 2018-12-17 19:30 | NUR ---
NURSE NOTES: Patient received in bed, asleep, easily arousable to touch, yells when awakens. With GT at 72cm, secured with tape and reinforced. B Soft wrist restraints on as ordered; no swelling. pulses present,skin intact. Will monitor.
[2018-12-17 20:00] VITALS: BP 138/78
[2018-12-17] MEDS: Carvedilol 12.5mg tab ORAL SCH (20:20)
[2018-12-17] MEDS: Dyna-Hex 2% Top Sol 2oz TOPIC SCH (20:20)
--- NOTE | 2018-12-17 21:00 | NUR ---
NURSE NOTES: Pt seen by Dr. Chang at bedside, assessed left stump with RN. new orders received. Notified Theresa Rossi, granddaughter wants to speak with her. Instructed to call office in the AM and leave contact #. Called Theresa back [phone] and instructed to call office in AM. Left stump was warm to touch with scant serous drainage. Cleansed with NS and covered with dry dressing and wrapped in kerlix, secured with tape.
--- NOTE | 2018-12-17 22:51 | Surgery Progress Note ---
Surgery Progress Note Subjective Additional Comments no acute events comfortable stable spoke with podiatry who evaluated patient. given MRI findings, care, condition , recommend BKA at this time Objective Last 24 Hour Vital Signs Date Time Temp Pulse Resp B/P (MAP) Pulse Ox O2 Delivery O2 Flow Rate FiO2 12/17/18 22:00 99 118/58 12/17/18 21:00 Nasal Cannula 2.0 Nasal Cannula 2.0 12/17/18 20:20 106 138/78 12/17/18 20:00 99.7 106 20 138/78 (98) 97 12/17/18 16:49 97 171/80 12/17/18 16:49 171/80 12/17/18 16:00 98.2 97 20 171/80 (110) 100 12/17/18 12:00 99.2 98 20 168/73 (104) 100 12/17/18 09:00 Room Air Room Air 12/17/18 09:00 101 163/89 12/17/18 08:10 101 20 94 Nasal Cannula 2.0 28 12/17/18 08:10 94 Nasal Cannula 2.0 28 12/17/18 08:00 98.4 106 20 163/89 (113) 95 12/17/18 05:10 172/89 12/17/18 04:00 98.9 108 20 172/89 (116) 95 12/17/18 00:52 178/94 12/17/18 00:00 99.0 104 20 178/94 (122) 95 I&O Intake and Output 12/16/18 12/17/18 19:00 07:00 Intake Total 950 ml 960 ml Output Total 900 ml 1200 ml Balance 50 ml -240 ml Intake Oral 50 ml IV Total 960 ml Other 900 ml Output Urine Total 900 ml 1200 ml Dressing: saturated Wound: other Drains: other Cardiovascular: RSR Respiratory: clear Abdomen: soft, non-tender, present bowel sounds Extremities: edema, tenderness, other Laboratory Tests Test 12/17/18 05:40 12/17/18 09:53 Sodium Level 155 MMOL/L (136-145) H Potassium Level 3.4 MMOL/L (3.5-5.1) L Chloride Level 121 MMOL/L (98-107) H Carbon Dioxide Level 24 MMOL/L (21-32) Anion Gap 10 mmol/L (5-15) Blood Urea Nitrogen 25 mg/dL (7-18) H Creatinine 1.7 MG/DL (0.55-1.30) H Estimat Glomerular Filtration Rate mL/min (>60) Glucose Level 205 MG/DL (74-106) H Uric Acid 11.0 MG/DL (2.6-7.2) H Calcium Level 9.5 MG/DL (8.5-10.1) Phosphorus Level 3.3 MG/DL (2.5-4.9) Magnesium Level 2.0 MG/DL (1.8-2.4) Total Bilirubin 0.4 MG/DL (0.2-1.0) Aspartate Amino Transf (AST/SGOT) 18 U/L (15-37) Alanine Aminotransferase (ALT/SGPT) 11 U/L (12-78) L Alkaline Phosphatase 212 U/L (46-116) H C-Reactive Protein, Quantitative 16.8 mg/dL (0.00-0.90) H Pro-B-Type Natriuretic Peptide 17016 pg/mL (0-125) H Total Protein 7.3 G/DL (6.4-8.2) Albumin 2.0 G/DL (3.4-5.0) L Globulin 5.3 g/dL Albumin/Globulin Ratio 0.4 (1.0-2.7) L Arterial Blood pH 7.398 (7.350-7.450) Arterial Blood Partial Pressure CO2 34.5 mmHg (35.0-45.0) L Arterial Blood Partial Pressure O2 71.3 mmHg (75.0-100.0) L Arterial Blood HCO3 20.8 mmol/L (22.0-26.0) L Arterial Blood Oxygen Saturation 93.8 % (95-100) L Arterial Blood Base Excess -3.5 (-2-2) L Kristian Test Positive Plan Problems: (1) Sepsis Assessment & Plan: 78-year-old male with sepsis, febrile, leukocytosis, bilateral foot amputations with left foot cellulitis and amputation site. Concerning for possible osteomyelitis. On IV antibiotics as per infectious disease. Leukocytosis improving. No active drainage noted from wound. Ulceration noted on lateral aspect of wound. Seems chronic overall. Noted to have a UTI. Blood cultures as below. No acute surgical intervention planned. 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 There is questionably a fragment of the fifth metatarsal stump present which if real is probably also involvement with osteomyelitis. This correlates with findings demonstrated on recent bone scan. Extensive lateral, dorsal, plantar soft tissue edema and associated ulcer. This is nonspecific, but probably indicate cellulitis given stated clinical history Podiatry input appreciated will discuss with patient and family for BKA medical clearance for surgery Trend labs Thank you for this consultation we will follow with recommendations (2) Cellulitis of foot Assessment & Plan: Status post amputation at the mid foot. No definite appearing acute osseous destruction or periosteal reaction identified. Possible small focus of soft tissue ulceration or air at the anterior lateral aspect of the stump, clinically correlate. Findings: . There is increased blood flow to the left foot compared to the right. There is increased blood pool activity that is asymmetric indicative of cellulitis at the stump. Delayed planar images demonstrate mild focal increased activity at one of the areas probably along the lateral side of the transmetatarsal amputation. Please correlate with the location of the ulcer and consider evaluation with MRI for more specific evaluation of the anatomy involved. 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 There is questionably a fragment of the fifth metatarsal stump present which if real is probably also involvement with osteomyelitis. This correlates with findings demonstrated on recent bone scan. Extensive lateral, dorsal, plantar soft tissue edema and associated ulcer. This is nonspecific, but probably indicate cellulitis given stated clinical history Mariusz Diehl Dec 17, 2018 22:51
[2018-12-18] VITALS: BP 144/77
--- NOTE | 2018-12-18 00:11 | NUR ---
HAND-OFF: Report given to José Luis ALEXANDER.
--- NOTE | 2018-12-18 00:17 | NUR ---
NURSE NOTES: Pt received from outgoing nurse BENJAMIN Guillory. Pt is in bed, awake,rambling. Pt has NG-tube on left nares at (72-73cm) running Glucerna 1.2 at 30ml/hr now, no residual, tube flashed with 50ml H20. HOB elevated, oral suction provided. Oral care provided.Pt repositioned. Bilat soft wrist restraint in place, restraint sites asymptomatic. Pt is on 2L N/C. Bed locked low in position,side rails up and call light within reach. Pt will be monitored.
[2018-12-18] MEDS: HYDROmorphone 1mg/ml Carpuject IVP PRN (02:57)
[2018-12-18 04:00] VITALS: BP 134/50
--- NOTE | 2018-12-18 05:45 | Consultation ---
DATE OF CONSULTATION: 12/17/2018 CONSULTING PHYSICIAN: John Morris D.P.M. REFERRING PHYSICIAN: Mariusz Diehl M.D. REASON FOR CONSULTATION: Diabetic foot ulceration to the left foot. HISTORY OF PRESENT ILLNESS: This is a bed-bound 78-year-old diabetic patient with history of bilateral foot amputation, presented with ulceration to the left foot. The patient has had MRI with positive for osteomyelitis of the cuboid of the left foot and proximal fifth metatarsal base stump. It is considered a BK amputation versus debridement surgical intervention. The patient is afebrile with WBC noted to be within normal limits. 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 PODIATRY EXAMINATION: VASCULAR: Dorsalis pedis and posterior tibial artery are nonpalpable. Capillary refilling time is noted to be greater than 5 seconds. Edema is noted to the left foot distal to the ankle joint. NEUROLOGIC: Cannot be assessed at this time due to the patient being unable to communicate. 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 Left foot is slightly contracted at the ankle joint, inverted with pressure being applied to the lateral aspect of the foot. The patient is bedbound and unable to move his foot and ankle. DERMATOLOGICAL: Attention was directed to the lateral aspect of the left foot over the calcaneocuboid area where the ulceration was identified, 1 x 1 cm in diameter probing to bone. There is no drainage, discharge, or purulent matter. There is periwound edema and erythema. There is no malodor. ASSESSMENT AND PLAN: Diabetic foot infection with underlying osteomyelitis to the left foot. The patient is status post Chopart amputation of the left foot and transmetatarsal amputation of the right foot. It has been examined and evaluated. A surgical intervention will take place and cuboid bone and fifth metatarsal base will be removed. A possible prominence of the calcaneal bone would be noted, which may cause increasing pressure to the lateral aspect and further possibility for ulceration. It is agreed that the patient will benefit more from a [id number]-ekqu amputation since he is nonambulatory. The patient was discussed with primary physician along with Infectious Disease and Dr. Diehl. John Morris D.P.M DR: JACI JOB#: [id number] CC: SADIQ
[2018-12-18] MEDS: dilTIAZem HCl 60mg tab ORAL SCH ×3 (06:26→22:00)
[2018-12-18] MEDS: NovoLOG Insulin Flexpen SUBQ SCH ×4 (06:28→20:54)
--- NOTE | 2018-12-18 06:37 | NUR ---
NURSE NOTES: Pt is in bed, awake. No acute distress noted. Pt is verbal. HOB elevated. Pt tolerating tube feeding well Pt was repositioned and cleaned. Wound dressing dry and intact. Pt suctioned. NG-tube at left nares at 73cm. NO SOB or cough noted. Vitals stable.
[2018-12-18 06:41] LABS: HEMATOCRIT 24.6 % (42.0-52.0); HEMOGLOBIN 7.6 G/DL (14.2-18.0); MEAN CORPUSCULAR VOLUME 88 FL (80-99); PLATELET COUNT 328 K/UL (150-450); RED BLOOD COUNT 2.79 M/UL (4.70-6.10); RED CELL DISTRIBUTION WIDTH 14.5 % (11.6-14.8)
[2018-12-18 06:57] LABS: ANION GAP 9 mmol/L (5-15); BLOOD UREA NITROGEN 28 mg/dL (7-18); CALCIUM 9.1 MG/DL (8.5-10.1); CARBON DIOXIDE 24 MMOL/L (21-32); CHLORIDE 120 MMOL/L (98-107); CREATININE 2.3 MG/DL (0.55-1.30); POTASSIUM 3.7 MMOL/L (3.5-5.1); SODIUM 153 MMOL/L (136-145)
--- NOTE | 2018-12-18 07:10 | NUR ---
HAND-OFF: Report given to BENJAMIN Lozano.Endorsed to follow up with MD regarding HGB 7.6.
--- NOTE | 2018-12-18 07:20 | NUR ---
NURSE NOTES: HANDOFF RECEIVED FROM BENJAMIN JERONIMO. PATIENT RECEIVED SLEEPING IN BED. IV SITE IS CLEAN DRY AND INTACT, IS THE PICC LINE. PICC LINE IS RUNNING PRESCRIBED FLUIDS. PATIENT IS ON NASAL CANNULA, RESPIRATIONS UNLABORED. PATIENT NOT IN ANY OBVIOUS SIGNS OF DISTRESS. BED IS IN THE LOW AND LOCKED POSITION, ALARM ON AND PATIENT HAS CALL LIGHT AT BEDSIDE. WILL CONTINUE TO MONITOR PATIENT.
[2018-12-18 07:58] VITALS: BP 149/59
--- NOTE | 2018-12-18 08:13 | NUR ---
CHARGE NURSE NOTE: H@H .6. notified.
[2018-12-18] MEDS: Pantoprazole Inj IVP SCH (08:52)
[2018-12-18] MEDS: Docusate 100mg cap ORAL SCH ×3 (08:52→18:00)
[2018-12-18] MEDS: Spironolactone 25mg tab ORAL SCH (08:52)
[2018-12-18] MEDS: Carvedilol 12.5mg tab ORAL SCH ×2 (08:52→21:00)
[2018-12-18] MEDS: Heparin 5000 units/ml inj SUBQ SCH ×2 (08:55→20:54)
[2018-12-18] MEDS ORDERED: D5 1/2NS 1000ml IV ONE (09:24)
[2018-12-18] MEDS ORDERED: Tubing IV Secondary IV ONE (09:24)
--- NOTE | 2018-12-18 10:22 | NUR ---
NURSE NOTES: MRI CAME UP TO THE FLOOR TO STATE THAT THE ULTRASOUND OF THE LEFT FOOT DID NOT NEED TO BE CARRIED OUT. STATED THAT THERE WAS AN MRI OF THE LEFT FOOT TAKEN ON 12/17/18. INFORMED ME TO CONTACT THE DOCTOR TO LET THEM KNOWN ABOUT THE PREVIOUS MRI. CONTACTED DR LLANOS AND LEFT A MESSAGE FOR HIS [employer] STATING THAT AN MRI WAS DONE PREVIOUSLY.
[2018-12-18 12:00] VITALS: BP 124/43
--- NOTE | 2018-12-18 12:19 | Nephrology Progress Note ---
Assessment/Plan Problem List: (1) Renal failure (ARF), acute on chronic Assessment: Cr down to 2.4 (2) Altered mental status (3) UTI (urinary tract infection) (4) Sepsis (5) Hypotension Assessment: shock Assessment Septic shock- was on pressors , now is off Diabetic nephropathy CKD Anemia s/p foot and LE amputations Plan Dilaudid for pain change IV to D5 albumin bolus mag and phos supplement as needed Avoid nephrotoxics allopurinol urine studies 2D echo Left ventricular ejection fraction estimated to be 55-60 %. Kidney TELLO noted keep BP and BS in check Anemia daley per orders Subjective ROS Limited/Unobtainable: No Constitutional: Reports: malaise Objective Objective Last 24 Hour Vital Signs Date Time Temp Pulse Resp B/P (MAP) Pulse Ox O2 Delivery O2 Flow Rate FiO2 12/18/18 12:00 97.9 59 16 124/43 (70) 98 12/18/18 08:52 74 149/59 12/18/18 07:58 97.8 74 19 149/59 (89) 98 12/18/18 07:44 Nasal Cannula 2.0 Nasal Cannula 2.0 12/18/18 06:26 78 135/64 12/18/18 04:00 98.5 76 20 134/50 (78) 99 12/18/18 00:00 99.2 93 18 144/77 (99) 100 12/17/18 22:00 99 118/58 12/17/18 21:00 Nasal Cannula 2.0 Nasal Cannula 2.0 12/17/18 20:20 106 138/78 12/17/18 20:00 99.7 106 20 138/78 (98) 97 12/17/18 16:49 97 171/80 12/17/18 16:49 171/80 12/17/18 16:00 98.2 97 20 171/80 (110) 100 Intake and Output 12/17/18 12/18/18 18:59 06:59 Intake Total 200 ml 1330 ml Output Total 650 ml Balance -450 ml 1330 ml Intake Oral 200 ml Free Water 150 ml IV Total 900 ml Tube Feeding 280 ml Output Urine Total 650 ml Laboratory Tests 12/18/18 06:00: White Blood Count 10.0, Red Blood Count 2.79L, Hemoglobin 7.6L, Hematocrit 24.6L , Mean Corpuscular Volume 88, Mean Corpuscular Hemoglobin 27.3, Mean Corpuscular Hemoglobin Concent 30.9L, Red Cell Distribution Width 14.5, Platelet Count 328, Mean Platelet Volume 6.2L, Neutrophils (%) (Auto) , Lymphocytes (%) (Auto) , Monocytes (%) (Auto) , Eosinophils (%) (Auto) , Basophils (%) (Auto) , Differential Total Cells Counted 100, Neutrophils % ( Manual) 77H, Lymphocytes % (Manual) 13L, Monocytes % (Manual) 7, Eosinophils % ( Manual) 3, Basophils % (Manual) 0, Band Neutrophils 0, Platelet Estimate Adequate, Platelet Morphology Normal, Hypochromasia 1+, Anisocytosis 1+, Erythrocyte Sedimentation Rate 134H, Sodium Level 153H, Potassium Level 3.7, Chloride Level 120H, Carbon Dioxide Level 24, Anion Gap 9, Blood Urea Nitrogen 28H, Creatinine 2.3H, Estimat Glomerular Filtration Rate , Glucose Level 185H, Calcium Level 9.1 Height (Feet): 5 Height (Inches): 6.00 Weight (Pounds): 184 General Appearance: no apparent distress EENT: other - NGT Cardiovascular: normal rate Respiratory/Chest: decreased breath sounds Abdomen: distended Genitourinary/Rectal: other - reyes Objective no change Naveed Vanegas MD Dec 18, 2018 12:19
--- NOTE | 2018-12-18 12:20 | Pulmonology Progress Note ---
Assessment/Plan Problems: (1) Sepsis (2) Cellulitis (3) Osteomyelitis (4) Bacteremia (5) UTI (urinary tract infection) (6) ATN (acute tubular necrosis) (7) Diabetes mellitus (8) History of hypertension (9) Hypertension Assessment/Plan NG tube in place iv fluids MRI reviewed,acute osteomyelitis. iv abx, BC persistently positive sliding sclale check cxr and bnp in am all reviewed dvt prophylaxis Subjective ROS Limited/Unobtainable: No Constitutional: Reports: no symptoms HEENT: Repors: no symptoms Respiratory: Reports: no symptoms Allergies: Coded Allergies: PENICILLINS (Verified Allergy, Unknown, 12/11/18) Objective Last 24 Hour Vital Signs Date Time Temp Pulse Resp B/P (MAP) Pulse Ox O2 Delivery O2 Flow Rate FiO2 12/18/18 12:00 97.9 59 16 124/43 (70) 98 12/18/18 08:52 74 149/59 12/18/18 07:58 97.8 74 19 149/59 (89) 98 12/18/18 07:44 Nasal Cannula 2.0 Nasal Cannula 2.0 12/18/18 06:26 78 135/64 12/18/18 04:00 98.5 76 20 134/50 (78) 99 12/18/18 00:00 99.2 93 18 144/77 (99) 100 12/17/18 22:00 99 118/58 12/17/18 21:00 Nasal Cannula 2.0 Nasal Cannula 2.0 12/17/18 20:20 106 138/78 12/17/18 20:00 99.7 106 20 138/78 (98) 97 12/17/18 16:49 97 171/80 12/17/18 16:49 171/80 12/17/18 16:00 98.2 97 20 171/80 (110) 100 Intake and Output 12/17/18 12/18/18 18:59 06:59 Intake Total 200 ml 1330 ml Output Total 650 ml Balance -450 ml 1330 ml Intake Oral 200 ml Free Water 150 ml IV Total 900 ml Tube Feeding 280 ml Output Urine Total 650 ml General Appearance: WD/WN HEENT: atraumatic Respiratory/Chest: chest wall non-tender, lungs clear Cardiovascular: normal peripheral pulses, regular rhythm Abdomen: normal bowel sounds, non distended Extremities: no clubbing Skin: no rash Neurologic/Psychiatric: inspector balance bridge II-XII grossly normal Lymphatic: no neck adenopathy Laboratory Tests 12/18/18 06:00: White Blood Count 10.0, Red Blood Count 2.79L, Hemoglobin 7.6L, Hematocrit 24.6L , Mean Corpuscular Volume 88, Mean Corpuscular Hemoglobin 27.3, Mean Corpuscular Hemoglobin Concent 30.9L, Red Cell Distribution Width 14.5, Platelet Count 328, Mean Platelet Volume 6.2L, Neutrophils (%) (Auto) , Lymphocytes (%) (Auto) , Monocytes (%) (Auto) , Eosinophils (%) (Auto) , Basophils (%) (Auto) , Differential Total Cells Counted 100, Neutrophils % ( Manual) 77H, Lymphocytes % (Manual) 13L, Monocytes % (Manual) 7, Eosinophils % ( Manual) 3, Basophils % (Manual) 0, Band Neutrophils 0, Platelet Estimate Adequate, Platelet Morphology Normal, Hypochromasia 1+, Anisocytosis 1+, Erythrocyte Sedimentation Rate 134H, Sodium Level 153H, Potassium Level 3.7, Chloride Level 120H, Carbon Dioxide Level 24, Anion Gap 9, Blood Urea Nitrogen 28H, Creatinine 2.3H, Estimat Glomerular Filtration Rate , Glucose Level 185H, Calcium Level 9.1 Current Medications Medications (Trade) Dose Ordered Sig/Cammy Route PRN Reason Start Time Stop Time Status Last Admin Dose Admin Acetaminophen (Tylenol) 650 mg Q4H PRN ORAL T>100.5 12/14/18 19:00 01/10/19 18:59 12/18/18 11:52 Allopurinol (Allopurinol) 300 mg DAILY ORAL 12/15/18 09:00 01/14/19 08:59 12/18/18 08:52 Carvedilol (Coreg) 12.5 mg Q12HR ORAL 12/17/18 21:00 01/15/19 06:29 12/18/18 08:52 Chlorhexidine Gluconate (Yi-Hex 2%) 1 applic DAILY@1999 TOPIC 12/16/18 20:00 01/15/19 19:59 12/17/18 20:20 Clonidine HCl (Catapres TTS-1) 1 patch QWEEK TDERMAL 12/16/18 13:00 01/15/19 12:59 12/16/18 13:30 Clonidine HCl (Catapres Tab) 0.1 mg Q6H PRN ORAL For High Blood Pressure 12/15/18 16:00 01/14/19 15:59 12/17/18 16:49 Dextrose 1,000 ml @ 75 mls/hr [id number] IV 12/17/18 14:30 01/16/19 14:29 12/18/18 06:10 Dextrose (Dextrose 50%) 25 ml Q30M PRN IV Hypoglycemia 12/14/18 18:45 01/11/19 17:14 Dextrose (Dextrose 50%) 50 ml Q30M PRN IV Hypoglycemia 12/14/18 18:45 01/11/19 17:14 Diltiazem HCl (Cardizem) 60 mg Q8HR ORAL 12/16/18 14:00 01/14/19 17:59 12/18/18 06:26 Diphenhydramine HCl (Benadryl) 25 mg Q6H PRN IVP Itching 12/14/18 19:00 01/13/19 18:59 12/15/18 08:18 Docusate Sodium (Colace) 100 mg THREE TIMES A DAY ORAL 12/15/18 09:00 01/11/19 12:59 12/18/18 08:52 Epoetin William (Epoetin William-EPBX(NON ESRD)) 10,000 unit FRI-FRI-FRI SUBQ 12/14/18 21:00 01/13/19 20:59 12/16/18 20:53 Heparin Sodium (Porcine) (Heparin 5000 units/ml) 5,000 units EVERY 12 HOURS SUBQ 12/14/18 21:00 01/10/19 20:59 12/18/18 08:55 Heparin Sodium/ Sodium Chloride (Heparin 1000 units/500ml Premix) 1,000 unit ONCE PRN IV PICC PLACEMENT 12/16/18 14:15 12/18/18 23:59 Hydromorphone HCl (Dilaudid) 1 mg Q4H PRN IVP For Pain 12/14/18 21:00 12/21/18 20:59 12/18/18 02:57 Insulin Aspart (NovoLOG) BEFORE MEALS AND HS SUBQ 12/14/18 21:00 01/11/19 20:59 12/18/18 11:45 Lidocaine HCl (Xylocaine 1% 30ml) 30 ml ONCE PRN INJ PICC PLACEMENT 12/16/18 14:15 12/18/18 23:59 Lorazepam (Ativan 2mg/ml 1ml) 2 mg Q4H PRN IV For Anxiety 12/15/18 12:30 12/22/18 12:29 12/17/18 05:56 Morphine Sulfate (Morphine Sulfate) 2 mg Q4H PRN IV For Pain 12/15/18 12:30 12/22/18 12:29 Nitroglycerin (Nitro-Bid) 1 inch Q4HR PRN TOPIC For High Blood Pressure 12/17/18 00:45 01/16/19 00:44 12/17/18 05:10 Ondansetron HCl (Zofran) 4 mg Q6H PRN IVP Nausea & Vomiting 12/14/18 19:00 01/10/19 18:59 Pantoprazole (Protonix) 40 mg Q12HR IVP 12/14/18 21:00 01/11/19 08:59 12/18/18 08:52 Polyethylene Glycol (Miralax) 17 gm DAILYPRN PRN ORAL Constipation 12/14/18 19:00 01/13/19 18:59 Spironolactone (Aldactone) 25 mg DAILY ORAL 12/16/18 09:00 01/15/19 08:59 12/18/18 08:52 Vancomycin HCl (Vanco rx to dose) 1 ea DAILY PRN MISC . 12/15/18 09:00 01/10/19 17:59 Karrie Crawford MD Dec 18, 2018 12:20
[2018-12-18] MEDS ORDERED: Albumin Human 5% 250ml IV ONE (12:30)
--- NOTE | 2018-12-18 12:37 | NUR ---
NURSE NOTES: CONTACTED DR LLANOS AND LEFT A MESSAGE REGARDING PATIENTS LOW H&H OF 7.[address] VANEGAS WAS MADE AWARE THIS AM BY BENJAMIN SAMPSON INFORMED ADRIÁN TO CONTACT THE PRIMARY DOCTOR.
--- NOTE | 2018-12-18 13:00 | Progress Note ---
DATE: 12/17/2018 NOTE: POOR AUDIO SUBJECTIVE: The patient is afebrile, but persistently tachycardic. PHYSICAL EXAMINATION: VITAL SIGNS: Blood pressure 138/78, his pulse is 106, respirations 20, and temperature 98.2. HEENT: Eyes were normal. ENT, mucous membranes were moist and intact. NECK: Supple with no JVD without lymph nodes. Tracheostomy site is clean. LUNGS: Clear without rhonchi, rales, or wheezing. Secretions are small, thin, and shannon. HEART: Normal sounds with regular beats. There is no S3, S4, or pericardial rub. There is tachycardia at rest. ABDOMEN: Soft and nontender with normal bowel sounds. Gastrostomy site is clean. EXTREMITIES: Warm without cyanosis, clubbing, or edema. The left foot tension and extremely tender on palpation severe pain to the patient. Several days ago, ultrasound of the left foot was ordered in search of stem abscess, but the procedure was not done. Procedure will be ordered today. As the patient became delirious today, it is quite possible that there is an abscess inside his stem that will require incision and drainage. LABORATORY DATA: Hemoglobin is 8.6, hematocrit 28.1 with MCV of 88, WBC of 11.2, and platelets of 321. His BUN and creatinine are 25 and 1.7 respectively. His sodium is 155, potassium 3.4, chloride 121, CO2 is 24. His uric acid remained 11. IMPRESSION: The patient's revealed Chanell albicans. The patient's wound . Abdominal ultrasound NG-tube in satisfactory condition. An MRI of the foot revealed an osteomyelitis fourth metatarsal stump, suspicious of fifth metatarsal imaging study . IMPRESSION: The patient is responding well to the current antibiotic. WBC on 12/13/2018 was 23,000 and today 11.2. Repeat laboratory tests will be done in the a.m. Ayush Chang M.D. DR: YAMILETH JOB#: [id number] CC:
--- NOTE | 2018-12-18 13:02 | NUR ---
ST NOTES: SWALLOW STATUS: MORE ALERT AND SPEAKING IN TUNISIAN. THE PATIENT IS NOT RECEPTIVE TO PO TRIALS. TUBE FEEDING OR YELLOW SUBSTANCE OUTSIDE OF THE LEFT SIDE OF HIS MOUTH AND THE SAME SUBSTANCE COMING OUT OF HIS NOSE. TOLD RN, NICOLE, THAT IS LOOKED LIKE TUBE FEEDING FORMULA. WILL HOLD ON PO TRIALS AND MOD BARIUM SWALLOW STUDY UNTIL FRIDAY IF READY. PLAN: CONTINUE WITH NONORAL NGT FEEDINGS AND ORAL CARE FOR NOW.
--- NOTE | 2018-12-18 13:15 | NUR ---
NURSE NOTES: ORDERS RECEIVED FROM DR LLANOS.
--- NOTE | 2018-12-18 13:23 | NUR ---
NURSE NOTES: PATIENT REMOVED NG TUBE. WILL NOTIFY THE PRIMARY MD.
--- NOTE | 2018-12-18 14:13 | NUR ---
NURSE NOTES: SPOKE TO DR LLANOS AND INFORMED HIM ABOUT PATIENT REMOVING NG TUBE. NO ORDERS GIVEN AT THIS TIME. ALSO INFORMED DR TO CALL FAMILY AND OBTAIN CONSENT FOR THE BLOOD TRANSFUSION.
--- NOTE | 2018-12-18 14:16 | NUR ---
NURSE NOTES: NON-ADMINISTERED COLACE AND CARDIZEM DUE TO PATIENT NPO, ASPIRATION RISK AND NO LONGER HAS NG TUBE. PATIENT WAS RECEIVING MEDS THROUGH NG TUBE BUT THIS IS NO LONGER VIABLE. DOCTOR AWARE THAT NG TUBE IS NO LONGER IN PLACE.
--- NOTE | 2018-12-18 14:40 | NUR ---
NURSE NOTES: CONTACTED PATIENTS DPOA TO CONFIRM CONSENT HAS BEEN OBTAINED. SPOKE TO CHUNG FRAGA WHO CONFIRMED SHE HAD SPOKEN TO DR. LLANOS AND HAD CONSENTED FOR THE PACKED RED BLOOD CELL TRANSFUSION. ALSO SPOKE TO THE PUNCH BOX TENDER, ADRIÁN WHO ALSO VERIFIED THAT CHUNG FRAGA CONSENTED TO THE PROCEDURE.
--- NOTE | 2018-12-18 14:46 | NUR ---
*-* INSURANCE *-* ALL AVAILABLE CLINICALS AND REVIEW S HAVE BEEN FAXED TO: [employer] MARIBELL: CHELLE P:[phone] F:[phone] (FAX ALL CLINICALS) REF# [id number]
--- NOTE | 2018-12-18 14:55 | Infectious Diseases Prog Note ---
Assessment/Plan Assessment/Plan Assessment/Plan: 78 yo male with PMHx of DM, HTN , PVP s/p B/L Mid foot amps who presented to the ED on 12/11/18 with left foot infection. 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 There is questionably a fragment of the fifth metatarsal stump present which if real is probably also involvement with osteomyelitis. Bone scan for OM left foot : acute osteomyelitis. Difficult to anatomically locate the area involved. Foot X-ray 12/11/18 - Possible small focus of soft tissue ulceration or air at the anterior lateral aspect of the stump, clinically correlate. No definite appearing acute osseous destruction or periosteal reaction identified. Fever to 102 - Resolved Leukocytosis, Sp Septicemia =- Likely from foot infection Blood Cx 12/11/18 - Grp B strep Blood Cx 12/13/18 - Pend TTE - No veg ALEXIS ( ?2nd to Vanco) DM HTN PVP s/p B/L Mid foot amps PLAN - Continue Zyvox # 1, DC Vancomycin # 5 - 12/17 Sp Ertapenem # 5 - 12/13/18 S/P Amikacin #2 - Monitor CBC and Temp - Rpt Blood Cx - Surg : BKA Subjective Allergies: Coded Allergies: PENICILLINS (Verified Allergy, Unknown, 12/11/18) Subjective Afebrile Objective Vital Signs Last 24 Hour Vital Signs Date Time Temp Pulse Resp B/P (MAP) Pulse Ox O2 Delivery O2 Flow Rate FiO2 12/18/18 12:00 97.9 59 16 124/43 (70) 98 12/18/18 08:52 74 149/59 12/18/18 07:58 97.8 74 19 149/59 (89) 98 12/18/18 07:44 Nasal Cannula 2.0 Nasal Cannula 2.0 12/18/18 06:26 78 135/64 12/18/18 04:00 98.5 76 20 134/50 (78) 99 12/18/18 00:00 99.2 93 18 144/77 (99) 100 12/17/18 22:00 99 118/58 12/17/18 21:00 Nasal Cannula 2.0 Nasal Cannula 2.0 12/17/18 20:20 106 138/78 12/17/18 20:00 99.7 106 20 138/78 (98) 97 12/17/18 16:49 97 171/80 12/17/18 16:49 171/80 12/17/18 16:00 98.2 97 20 171/80 (110) 100 Height (Feet): 5 Height (Inches): 6.00 Weight (Pounds): 184 Respiratory/Chest: lungs clear Cardiovascular: normal rate Abdomen: no organomegaly Laboratory Tests Test 12/18/18 06:00 White Blood Count 10.0 K/UL (4.8-10.8) Red Blood Count 2.79 M/UL (4.70-6.10) L Hemoglobin 7.6 G/DL (14.2-18.0) L Hematocrit 24.6 % (42.0-52.0) L Mean Corpuscular Volume 88 FL (80-99) Mean Corpuscular Hemoglobin 27.3 PG (27.0-31.0) Mean Corpuscular Hemoglobin Concent 30.9 G/DL (32.0-36.0) L Red Cell Distribution Width 14.5 % (11.6-14.8) Platelet Count 328 K/UL (150-450) Mean Platelet Volume 6.2 FL (6.5-10.1) L Neutrophils (%) (Auto) % (45.0-75.0) Lymphocytes (%) (Auto) % (20.0-45.0) Monocytes (%) (Auto) % (1.0-10.0) Eosinophils (%) (Auto) % (0.0-3.0) Basophils (%) (Auto) % (0.0-2.0) Differential Total Cells Counted 100 Neutrophils % (Manual) 77 % (45-75) H Lymphocytes % (Manual) 13 % (20-45) L Monocytes % (Manual) 7 % (1-10) Eosinophils % (Manual) 3 % (0-3) Basophils % (Manual) 0 % (0-2) Band Neutrophils 0 % (0-8) Platelet Estimate Adequate Platelet Morphology Normal Hypochromasia 1+ Anisocytosis 1+ Erythrocyte Sedimentation Rate 134 MM/HR (0-20) H Sodium Level 153 MMOL/L (136-145) H Potassium Level 3.7 MMOL/L (3.5-5.1) Chloride Level 120 MMOL/L (98-107) H Carbon Dioxide Level 24 MMOL/L (21-32) Anion Gap 9 mmol/L (5-15) Blood Urea Nitrogen 28 mg/dL (7-18) H Creatinine 2.3 MG/DL (0.55-1.30) H Estimat Glomerular Filtration Rate mL/min (>60) Glucose Level 185 MG/DL (74-106) H Calcium Level 9.1 MG/DL (8.5-10.1) Current Medications Medications (Trade) Dose Ordered Sig/Cammy Route PRN Reason Start Time Stop Time Status Last Admin Dose Admin Acetaminophen (Tylenol) 650 mg Q4H PRN ORAL T>100.5 12/14/18 19:00 01/10/19 18:59 12/18/18 11:52 Allopurinol (Allopurinol) 300 mg DAILY ORAL 12/15/18 09:00 01/14/19 08:59 12/18/18 08:52 Carvedilol (Coreg) 12.5 mg Q12HR ORAL 12/17/18 21:00 01/15/19 06:29 12/18/18 08:52 Chlorhexidine Gluconate (Yi-Hex 2%) 1 applic DAILY@2000 TOPIC 12/16/18 20:00 01/15/19 19:59 12/17/18 20:20 Clonidine HCl (Catapres TTS-1) 1 patch QWEEK TDERMAL 12/16/18 13:00 01/15/19 12:59 12/16/18 13:30 Clonidine HCl (Catapres Tab) 0.1 mg Q6H PRN ORAL For High Blood Pressure 12/15/18 16:00 01/14/19 15:59 12/17/18 16:49 Dextrose 1,000 ml @ 100 mls/hr Q10H IV 12/18/18 12:30 01/16/19 12:29 Dextrose (Dextrose 50%) 25 ml Q30M PRN IV Hypoglycemia 12/14/18 18:45 01/11/19 17:14 Dextrose (Dextrose 50%) 50 ml Q30M PRN IV Hypoglycemia 12/14/18 18:45 01/11/19 17:14 Diltiazem HCl (Cardizem) 60 mg Q8HR ORAL 12/16/18 14:00 01/14/19 17:59 12/18/18 06:26 Diphenhydramine HCl (Benadryl) 25 mg Q6H PRN IVP Itching 12/14/18 19:00 01/13/19 18:59 12/15/18 08:18 Docusate Sodium (Colace) 100 mg THREE TIMES A DAY ORAL 12/15/18 09:00 01/11/19 12:59 12/18/18 08:52 Epoetin William (Epoetin William-EPBX(NON ESRD)) 10,000 unit FRI-FRI-FRI SUBQ 12/14/18 21:00 01/13/19 20:59 12/16/18 20:53 Heparin Sodium (Porcine) (Heparin 5000 units/ml) 5,000 units EVERY 12 HOURS SUBQ 12/14/18 21:00 01/10/19 20:59 12/18/18 08:55 Heparin Sodium/ Sodium Chloride (Heparin 1000 units/500ml Premix) 1,000 unit ONCE PRN IV PICC PLACEMENT 12/16/18 14:15 12/18/18 23:59 Hydromorphone HCl (Dilaudid) 1 mg Q4H PRN IVP For Pain 12/14/18 21:00 12/21/18 20:59 12/18/18 02:57 Insulin Aspart (NovoLOG) BEFORE MEALS AND HS SUBQ 12/14/18 21:00 01/11/19 20:59 12/18/18 11:45 Lidocaine HCl (Xylocaine 1% 30ml) 30 ml ONCE PRN INJ PICC PLACEMENT 12/16/18 14:15 12/18/18 23:59 Lorazepam (Ativan 2mg/ml 1ml) 2 mg Q4H PRN IV For Anxiety 12/15/18 12:30 12/22/18 12:29 12/17/18 05:56 Morphine Sulfate (Morphine Sulfate) 2 mg Q4H PRN IV For Pain 12/15/18 12:30 12/22/18 12:29 Nitroglycerin (Nitro-Bid) 1 inch Q4HR PRN TOPIC For High Blood Pressure 12/17/18 00:45 01/16/19 00:44 12/17/18 05:10 Ondansetron HCl (Zofran) 4 mg Q4H PRN IVP Nausea & Vomiting 12/18/18 13:00 01/17/19 12:59 Pantoprazole (Protonix) 40 mg DAILY IVP 12/19/18 09:00 01/18/19 08:59 Polyethylene Glycol (Miralax) 17 gm DAILYPRN PRN ORAL Constipation 12/14/18 19:00 01/13/19 18:59 Spironolactone (Aldactone) 25 mg DAILY ORAL 12/16/18 09:00 01/15/19 08:59 12/18/18 08:52 Vancomycin HCl (Vanco rx to dose) 1 ea DAILY PRN MISC . 12/15/18 09:00 01/10/19 17:59 Casa Martin MD Dec 18, 2018 14:55
--- NOTE | 2018-12-18 15:57 | Surgery Progress Note ---
Surgery Progress Note Subjective Additional Comments leukocytosis resolved worsening renal insufficiency labs noted exam stable wound stable will discuss with family TRACY cont with IV ABx Objective Last 24 Hour Vital Signs Date Time Temp Pulse Resp B/P (MAP) Pulse Ox O2 Delivery O2 Flow Rate FiO2 12/18/18 12:00 97.9 59 16 124/43 (70) 98 12/18/18 08:52 74 149/59 12/18/18 07:58 97.8 74 19 149/59 (89) 98 12/18/18 07:44 Nasal Cannula 2.0 Nasal Cannula 2.0 12/18/18 06:26 78 135/64 12/18/18 04:00 98.5 76 20 134/50 (78) 99 12/18/18 00:00 99.2 93 18 144/77 (99) 100 12/17/18 22:00 99 118/58 12/17/18 21:00 Nasal Cannula 2.0 Nasal Cannula 2.0 12/17/18 20:20 106 138/78 12/17/18 20:00 99.7 106 20 138/78 (98) 97 12/17/18 16:49 97 171/80 12/17/18 16:49 171/80 12/17/18 16:00 98.2 97 20 171/80 (110) 100 I&O Intake and Output 12/17/18 12/18/18 19:00 07:00 Intake Total 285 ml 1245 ml Output Total 650 ml Balance -365 ml 1245 ml Intake Oral 200 ml Free Water 150 ml IV Total 75 ml 825 ml Tube Feeding 10 ml 270 ml Output Urine Total 650 ml Dressing: saturated Wound: other Drains: other Cardiovascular: RSR Respiratory: clear Abdomen: soft, flat, non-tender, present bowel sounds, non-distended Extremities: edema, tenderness, no cyanosis, other Laboratory Tests Test 12/18/18 06:00 White Blood Count 10.0 K/UL (4.8-10.8) Red Blood Count 2.79 M/UL (4.70-6.10) L Hemoglobin 7.6 G/DL (14.2-18.0) L Hematocrit 24.6 % (42.0-52.0) L Mean Corpuscular Volume 88 FL (80-99) Mean Corpuscular Hemoglobin 27.3 PG (27.0-31.0) Mean Corpuscular Hemoglobin Concent 30.9 G/DL (32.0-36.0) L Red Cell Distribution Width 14.5 % (11.6-14.8) Platelet Count 328 K/UL (150-450) Mean Platelet Volume 6.2 FL (6.5-10.1) L Neutrophils (%) (Auto) % (45.0-75.0) Lymphocytes (%) (Auto) % (20.0-45.0) Monocytes (%) (Auto) % (1.0-10.0) Eosinophils (%) (Auto) % (0.0-3.0) Basophils (%) (Auto) % (0.0-2.0) Differential Total Cells Counted 100 Neutrophils % (Manual) 77 % (45-75) H Lymphocytes % (Manual) 13 % (20-45) L Monocytes % (Manual) 7 % (1-10) Eosinophils % (Manual) 3 % (0-3) Basophils % (Manual) 0 % (0-2) Band Neutrophils 0 % (0-8) Platelet Estimate Adequate Platelet Morphology Normal Hypochromasia 1+ Anisocytosis 1+ Erythrocyte Sedimentation Rate 134 MM/HR (0-20) H Sodium Level 153 MMOL/L (136-145) H Potassium Level 3.7 MMOL/L (3.5-5.1) Chloride Level 120 MMOL/L (98-107) H Carbon Dioxide Level 24 MMOL/L (21-32) Anion Gap 9 mmol/L (5-15) Blood Urea Nitrogen 28 mg/dL (7-18) H Creatinine 2.3 MG/DL (0.55-1.30) H Estimat Glomerular Filtration Rate mL/min (>60) Glucose Level 185 MG/DL (74-106) H Calcium Level 9.1 MG/DL (8.5-10.1) Plan Problems: (1) Sepsis Assessment & Plan: 78-year-old male with sepsis, febrile, leukocytosis, bilateral foot amputations with left foot cellulitis and amputation site. Concerning for possible osteomyelitis. On IV antibiotics as per infectious disease. Leukocytosis improving. No active drainage noted from wound. Ulceration noted on lateral aspect of wound. Seems chronic overall. Noted to have a UTI. Blood cultures as below. No acute surgical intervention planned. 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 There is questionably a fragment of the fifth metatarsal stump present which if real is probably also involvement with osteomyelitis. This correlates with findings demonstrated on recent bone scan. Extensive lateral, dorsal, plantar soft tissue edema and associated ulcer. This is nonspecific, but probably indicate cellulitis given stated clinical history Podiatry input appreciated will discuss with patient and family for BKA medical clearance for surgery Trend labs Thank you for this consultation we will follow with recommendations (2) Cellulitis of foot Assessment & Plan: Status post amputation at the mid foot. No definite appearing acute osseous destruction or periosteal reaction identified. Possible small focus of soft tissue ulceration or air at the anterior lateral aspect of the stump, clinically correlate. Findings: . There is increased blood flow to the left foot compared to the right. There is increased blood pool activity that is asymmetric indicative of cellulitis at the stump. Delayed planar images demonstrate mild focal increased activity at one of the areas probably along the lateral side of the transmetatarsal amputation. Please correlate with the location of the ulcer and consider evaluation with MRI for more specific evaluation of the anatomy involved. 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 There is questionably a fragment of the fifth metatarsal stump present which if real is probably also involvement with osteomyelitis. This correlates with findings demonstrated on recent bone scan. Extensive lateral, dorsal, plantar soft tissue edema and associated ulcer. This is nonspecific, but probably indicate cellulitis given stated clinical history Mariusz Diehl Dec 18, 2018 15:57
[2018-12-18 16:00] VITALS: BP 141/63
--- NOTE | 2018-12-18 16:10 | NUR ---
NURSE NOTES: NON-ADMINISTERED LINEZOLID DUE TO PRBC TRANSFUSING.
--- NOTE | 2018-12-18 17:20 | NUR ---
NURSE NOTES: NON-ADMIN FOR LASIX PRBC'S CURRENTLY RUNNING.
--- NOTE | 2018-12-18 18:33 | NUR ---
NURSE NOTES: FIRST BAG OF PRBC COMPLETED. PATIENT HAS BEEN HAVING WHEEZING SINCE THIS AM, NOTICED PATIENT WHEEZING HAS WORSENED. DOCTOR PRESCRIBED LASIX BUT COULD NOT ADMINISTER BLOOD PRODUCTS WERE RUNNING. WILL NOT ADMINISTER THE LASIX AND HOLD THE PRBC FOR NOW. WILL CONTINUE TO MONITOR PATIENT.
--- NOTE | 2018-12-18 18:40 | NUR ---
NURSE NOTES: SIGNED FOR EPOETIN, FOOD SERVICE TECHNICIAN PLACING IN THE FRIDGE.
--- NOTE | 2018-12-18 18:50 | NUR ---
CHARGE NURSE NOTE: After first unit PRBcs administration, pt is wheezing, condition is worsening. was notified. ABG and CHEST X-ray stat ordered.
--- NOTE | 2018-12-18 18:51 | NUR ---
CASE MANAGEMENT: REVIEW SI: SEPSIS . LEFT FOOT ABSCESS PICC PLACEMENT 12/16 T 97.5 HR 59 RR 16 BP 124/43 SAT 98% NC/2L H/H 7.6/24.6 NA 153 BUN 28 CR 2.3 IS: LASIX IV Q12HR D5W IVF @ 50ML/HR PROTONIX IV QD ZYVOX IV Q12HR CARDIZEM PO Q8HR EPOETIN SUBQ MWF HEPARIN SUBQ Q12HR CLONIDINE PATCH QD NPO -- PATIENT REMOVED NG TUBE MED/SURG STATUS DCP: PATIENT IS FROM [facility]
--- NOTE | 2018-12-18 19:43 | NUR ---
HAND-OFF: Report given to BENJAMIN MARINELLI.
--- NOTE | 2018-12-18 19:45 | NUR ---
NURSE NOTES: Report received from Blake ALEXANDER. Patient is in bed, awake, and verbal.Maltese speaking. Patient has some wheezing, O2 sat 99-100% on 2L N/C, BP 144/58,HR 65,RR 20 Temp 98.8. RT there to assess the pt. Dr Chang was made aware.According to the day shift RN, albumin and one unit of blood was given.Dr Chang ordered STAT ABG and CXR, results pending. Doctor will be notified with results. NG tube came out during last shift, no order to reinsert, Pt is currently NPO. Head of the bed elevated.Pt will be monitored for respiratory distress. Pt has bilateral soft wrist restraints, restraint sites are asymptomatic. Fall precaution is in place. Pt will be monitored.
[2018-12-18 20:00] VITALS: BP 144/58
--- NOTE | 2018-12-18 20:00 | NUR ---
NURSE NOTES: Patient is in bed, awake, and verbal.Korean speaking. Patient has some wheezing, O2 sat 99-100% on 2L N/C, BP 144/58,HR 65,RR 20 Temp 98.8. RT there to assess the pt. Dr Chang was made aware of wheezing. Per day shift RN, albumin and one unit of blood was given.Dr Chang ordered STAT ABG and CXR, results pending. Doctor will be notified with results. NG tube came out during last shift, no order to reinsert, Pt is currently NPO. Head of the bed elevated.Pt will be monitored for respiratory distress. Pt has bilateral soft wrist restraints, restraint sites are asymptomatic. Fall precaution is in place. Pt will be monitored closely. Prema Lance will be assisting in the care of patient.
[2018-12-18] MEDS: Epoetin Alfa-EPBX (NON ESRD)10,000 unit/ml vial SUBQ SCH (20:53)
[2018-12-18] MEDS: Dyna-Hex 2% Top Sol 2oz TOPIC SCH (20:53)
--- NOTE | 2018-12-18 21:40 | NUR ---
NURSE NOTES: Dr. Chang is called with STAT ABG and CXR result. Dr. Chang ordered to transfer pt to [facility] and call DR. Crawford with ABG result. DR. Crawford is called. Charge nurse Ricco is made aware. Waiting for a room.
--- NOTE | 2018-12-18 21:45 | NUR ---
NURSE NOTES: Dr. Chang notified that patient currently has no NG-tube and that oral BP Meds were not administered since patient is NPO. No new orders received.
[2018-12-18] MEDS ORDERED: Albuterol/Ipratropium 3ml neb HHN PRN (22:45)
--- NOTE | 2018-12-18 23:40 | NUR ---
NURSE NOTES: Dr Chang OK'd to give second unit of blood ,blood transfusion started, Vitals stable. No acute distress noted. Pt will be monitored.
[2018-12-19] VITALS: BP 130/58
--- NOTE | 2018-12-19 01:00 | NUR ---
NURSE NOTES: Pt transferred to [facility] room 238-[address] Chang's order. Report given to BENJAMIN Bello [facility]. Pt was stable, awake and verbal during transfer. Vitals stable. Prior to transfer DuoNeb breathing Tx and Lasix 30mg IVP was given per Dr. Crawford's order. Dr. Chang OK'd to transfuse the second unit of blood, blood transfusion started at 2340, Blood is still being transfused during transfer, transfusion will be completed in [facility]. All belongings transferred with patient. Family member Allison German called and informed of transfer to [facility]. BENJAMIN Frederick endorsed to follow up with DR. Chang whether to reinsert NG-Tube and start tube feeding.
--- NOTE | 2018-12-19 01:15 | NUR ---
NURSE NOTES: Received pt from BENJAMIN Ordonez. Pt in stable condition with one unit of PRBCs running. Pt is AAOx2 with no acute distress. Pt is on security monitor. Skin issues noted, IV sites patent as well as intact, and on 2L NC. Pt reyes is draining and secured. Pt diet and medication orders were reviewed. Bed at its lowest position, call light in reach and X3 bed rails are up.
[2018-12-19] MEDS ORDERED: HYDROmorphone 1mg/ml Carpuject IVP PRN ×2 (02:02→14:02)
[2018-12-19] MEDS ORDERED: DiphenhydrAMINE 50mg/ml Inj IVP PRN (02:08)
[2018-12-19] MEDS ORDERED: LORazepam Inj 2mg/ml 1ml IV PRN (02:12)
[2018-12-19] MEDS ORDERED: Miralax 17gm pkt ORAL PRN (02:13)
--- NOTE | 2018-12-19 02:45 | Progress Note ---
DATE: 12/18/2018 NOTE: POOR AUDIO SUBJECTIVE: The patient's condition deteriorated. The case has been discussed with the general surgeon, infectious diseases specialist, and family. The patient became delirious yesterday and laboratory tests revealed the patient is congestive heart failure and chronic renal failure and deterioration of renal function. PHYSICAL EXAMINATION: VITAL SIGNS: Blood pressure 141/63, pulse 63, respirations 20, temperature 97.5. HEENT: Eyes were normal. ENT, mucous membranes were moist and intact. NECK: Supple with no JVD without lymph nodes. Tracheostomy site is clean. LUNGS: Clear without rhonchi, rales, or wheezing. Secretions are small, thin, and shannon. HEART: Normal sounds with regular beats. There is no S3, S4, or pericardial rub. ABDOMEN: Soft and nontender with normal bowel sounds. EXTREMITIES: Warm without cyanosis, clubbing, or edema. The left extremity cellulitis persists with pus, it is less, but the foot is swollen. LABORATORY DATA: Hemoglobin is 7.3, hematocrit 24.3 with MCV of 88, WBC of 10 and platelets 328. His WBC declined from 19,000 on 12/18/2018 at the same time ESR remained in 130s. BUN and creatinine is 28, it was 29 on 12/17/2018. Creatinine increased from 1.6 to 2.3. His glucose is 185. His uric acid is 11. His calcium is 9.1. His liver function tests are appropriate. His proBNP increased from nearly 20,000 to 31,000. will be seeing the patient today and recommended amputation of the foot. the patient will be cleared from medical point of view. The patient's general condition . The patient did not receive any oral medications now for several days. we will type and cross and transfuse two units packed RBCs, medications for his congestive heart failure is to be given as deemed. The patient received 40 mg IV push q.12 h., however, carvedilol cannot be given so therefore the patient will receive digoxin 0.125 mg daily Repeat laboratory tests will be done in the morning. Ayush Chang M.D. DR: Scottie JOB#: [id number] CC:
[2018-12-19] MEDS ORDERED: Albuterol/Ipratropium 3ml neb HHN PRN (03:00)
[2018-12-19 04:00] VITALS: BP 166/79
[2018-12-19] MEDS ORDERED: Morphine Sulfate 2mg/ml Inj(IV/IM USE ONLY) IV PRN (04:30)
[2018-12-19] MEDS ORDERED: Nitroglycerin 2% oint pkt TOPIC PRN (05:00)
[2018-12-19] MEDS: dilTIAZem HCl 60mg tab ORAL SCH ×3 (05:57→21:23)
[2018-12-19] MEDS: NovoLOG Insulin Flexpen SUBQ SCH ×5 (06:00→21:26)
[2018-12-19 06:36] LABS: BASOPHILS % (AUTO) 0.4 % (0.0-2.0); EOSINOPHILS % (AUTO) 2.7 % (0.0-3.0); HEMATOCRIT 33.1 % (42.0-52.0); HEMOGLOBIN 10.5 G/DL (14.2-18.0); LYMPHOCYTES % (AUTO) 14.4 % (20.0-45.0); MEAN CORPUSCULAR VOLUME 88 FL (80-99); MONOCYTES % (AUTO) 3.5 % (1.0-10.0); PLATELET COUNT 317 K/UL (150-450); RED BLOOD COUNT 3.75 M/UL (4.70-6.10); RED CELL DISTRIBUTION WIDTH 13.8 % (11.6-14.8); WHITE BLOOD COUNT 10.8 K/UL (4.8-10.8)
[2018-12-19 06:55] LABS: % IRON SATURATION 18 % (15-50); IRON 24 ug/dL (50-175); TOTAL IRON BINDING CAPACITY 135 ug/dL (250-450)
--- NOTE | 2018-12-19 07:27 | NUR ---
HAND-OFF: Report given to BENJAMIN Royal.
--- NOTE | 2018-12-19 07:28 | NUR ---
NURSE NOTES: Received report from BENJAMIN Bello. Patient is resting in bed, in stable condition. No s/sx of SOB, breathing is evne and unlabored, pt is on 2L NC. Denies any presence of pain or discomfort at this time. Bed is in lowest position, brakes engaged. Call light is kept within easy reach. Will continue to monitor patient.
[2018-12-19 07:54] LABS: ALANINE AMINOTRANSFERASE 9 U/L (12-78); ALBUMIN 2.1 G/DL (3.4-5.0); ALBUMIN/GLOBULIN RATIO 0.4 (1.0-2.7); ALKALINE PHOSPHATASE 188 U/L (46-116); ANION GAP 10 mmol/L (5-15); ASPARTATE AMINO TRANSFERASE 20 U/L (15-37); BILIRUBIN,TOTAL 0.5 MG/DL (0.2-1.0); BLOOD UREA NITROGEN 36 mg/dL (7-18); CALCIUM 9.4 MG/DL (8.5-10.1); CARBON DIOXIDE 23 MMOL/L (21-32); CHLORIDE 119 MMOL/L (98-107); CREATININE 3.1 MG/DL (0.55-1.30); FERRITIN 457 NG/ML (8-388); PHOSPHORUS 5.2 MG/DL (2.5-4.9); POTASSIUM 3.9 MMOL/L (3.5-5.1); SODIUM 152 MMOL/L (136-145)
[2018-12-19 08:00] VITALS: BP 151/64
[2018-12-19] MEDS: Docusate 100mg cap ORAL SCH ×3 (09:00→17:04)
[2018-12-19] MEDS ORDERED: Pantoprazole Inj IVP SCH (09:00)
[2018-12-19] MEDS: Heparin 5000 units/ml inj SUBQ SCH ×2 (09:00→21:27)
--- NOTE | 2018-12-19 09:00 | NUR ---
NURSE NOTES: Patient complained of difficulty breathing, patient is noted with no s/sx of SOB, breathing is even and unlabored. On 4 L nasal cannula, with SpO2 of 100%. Contacted and informed Dr. Crawford of situation, and of ABG results from yesterday, 12/18/18: pH 7.28, pCO2 42.9, pO2 104.0, HCO3 20, O2 Saturation 96.8. Dr. Crawford acknowledged, no new orders given at this time. Patient is noted resting comfortably at bed at this time. Will continue to monitor patient.
[2018-12-19] MEDS: Spironolactone 25mg tab ORAL SCH (09:08)
[2018-12-19] MEDS: Pantoprazole Inj IVP SCH (09:09)
[2018-12-19] MEDS: Carvedilol 12.5mg tab ORAL SCH ×2 (09:09→21:23)
--- NOTE | 2018-12-19 09:59 | Nephrology Progress Note ---
Assessment/Plan Problem List: (1) Renal failure (ARF), acute on chronic Assessment: Cr danial (2) Altered mental status (3) UTI (urinary tract infection) (4) Sepsis (5) Hypotension Assessment: shock Assessment Septic shock- was on pressors , now is off Diabetic nephropathy CKD Anemia s/p foot and LE amputations Plan optimize cardiac and pulmonary status per orders Avoid nephrotoxics allopurinol urine studies 2D echo Left ventricular ejection fraction estimated to be 55-60 %. Kidney TELLO noted keep BP and BS in check Anemia daley per orders Subjective ROS Limited/Unobtainable: No Constitutional: Reports: malaise, weakness Objective Objective Last 24 Hour Vital Signs Date Time Temp Pulse Resp B/P (MAP) Pulse Ox O2 Delivery O2 Flow Rate FiO2 12/19/18 09:09 64 151/72 12/19/18 09:00 Nasal Cannula 2.0 Nasal Cannula 2.0 12/19/18 08:00 99.3 75 20 151/64 (93) 100 12/19/18 05:57 89 166/79 12/19/18 04:00 97.7 89 20 166/79 (108) 96 12/19/18 00:00 97.7 70 18 130/58 (82) 99 12/18/18 23:11 68 24 100 Nasal Cannula 2.0 28 12/18/18 23:00 68 24 100 70 26 99 12/18/18 21:00 Nasal Cannula 2.0 Nasal Cannula 2.0 12/18/18 21:00 65 144/58 12/18/18 20:00 98.8 65 20 144/58 (86) 100 12/18/18 19:00 100 Nasal Cannula 2.0 28 12/18/18 16:00 97.5 63 20 141/63 (89) 100 12/18/18 12:00 97.9 59 16 124/43 (70) 98 Intake and Output 12/18/18 12/19/18 18:59 06:59 Intake Total 655.73729 ml Output Total 230 ml 500 ml Balance -230 ml 155.69030 ml IV Total 405.16411 ml Blood Product 250 ml Output Urine Total 230 ml 500 ml Laboratory Tests 12/18/18 18:50: Arterial Blood pH 7.286L, Arterial Blood Partial Pressure CO2 42.9, Arterial Blood Partial Pressure O2 104.0H, Arterial Blood HCO3 20.0L, Arterial Blood Oxygen Saturation 96.8, Arterial Blood Base Excess -6.3L, Kristian Test Positive 12/18/18 20:15: Stool Occult Blood [Pending] 12/19/18 03:40: White Blood Count 10.8, Red Blood Count 3.75L, Hemoglobin 10.5#L, Hematocrit 33.1#L, Mean Corpuscular Volume 88, Mean Corpuscular Hemoglobin 28.1, Mean Corpuscular Hemoglobin Concent 31.8L, Red Cell Distribution Width 13.8, Platelet Count 317, Mean Platelet Volume 6.3L, Neutrophils (%) (Auto) 79.0H, Lymphocytes (%) (Auto) 14.4L, Monocytes (%) (Auto) 3.5, Eosinophils (%) (Auto) 2.7, Basophils (%) (Auto) 0.4, Reticulocyte Count [Pending], Sodium Level 152H, Potassium Level 3.9, Chloride Level 119H, Carbon Dioxide Level 23, Anion Gap 10 , Blood Urea Nitrogen 36H, Creatinine 3.1H, Estimat Glomerular Filtration Rate , Glucose Level 152H, Calcium Level 9.4, Phosphorus Level 5.2H, Magnesium Level 1.9, Iron Level 24L, Total Iron Binding Capacity 135L, Percent Iron Saturation 18, Unsaturated Iron Binding 111L, Ferritin 457H, Total Bilirubin 0.5, Aspartate Amino Transf (AST/SGOT) 20, Alanine Aminotransferase (ALT/SGPT) 9L, Alkaline Phosphatase 188H, C-Reactive Protein, Quantitative 12.2H, Total Protein 6.9, Albumin 2.1L, Globulin 4.8, Albumin/Globulin Ratio 0.4L Height (Feet): 5 Height (Inches): 6.00 Weight (Pounds): 187 General Appearance: mild distress Cardiovascular: tachycardia Respiratory/Chest: decreased breath sounds Abdomen: distended Objective no change Naveed Vanegas MD Dec 19, 2018 09:58
[2018-12-19 12:00] VITALS: BP 140/74
--- NOTE | 2018-12-19 12:27 | Surgery Progress Note ---
Surgery Progress Note Subjective Additional Comments Delirious, transferred to telemetry for cardiac, on dig. Exam stable. Discussed with PCP not medically cleared for surgery given current medical status. Objective Last 24 Hour Vital Signs Date Time Temp Pulse Resp B/P (MAP) Pulse Ox O2 Delivery O2 Flow Rate FiO2 12/19/18 09:58 74 12/19/18 09:09 64 151/72 12/19/18 09:00 Nasal Cannula 2.0 Nasal Cannula 2.0 12/19/18 08:00 99.3 75 20 151/64 (93) 100 12/19/18 05:57 89 166/79 12/19/18 04:00 97.7 89 20 166/79 (108) 96 12/19/18 00:00 97.7 70 18 130/58 (82) 99 12/18/18 23:11 68 24 100 Nasal Cannula 2.0 28 12/18/18 23:00 68 24 100 70 26 99 12/18/18 21:00 Nasal Cannula 2.0 Nasal Cannula 2.0 12/18/18 21:00 65 144/58 12/18/18 20:00 98.8 65 20 144/58 (86) 100 12/18/18 19:00 100 Nasal Cannula 2.0 28 12/18/18 16:00 97.5 63 20 141/63 (89) 100 I&O Intake and Output 12/18/18 12/19/18 18:59 06:59 Intake Total 655.79768 ml Output Total 230 ml 500 ml Balance -230 ml 155.04878 ml IV Total 405.14015 ml Blood Product 250 ml Output Urine Total 230 ml 500 ml Dressing: saturated Wound: other Drains: other Cardiovascular: RSR Respiratory: clear Abdomen: soft, flat, non-tender Extremities: edema, no tenderness, no cyanosis, other Laboratory Tests Test 12/18/18 18:50 12/18/18 20:15 12/19/18 03:40 Arterial Blood pH 7.286 (7.350-7.450) Arterial Blood Partial Pressure CO2 42.9 mmHg (35.0-45.0) Arterial Blood Partial Pressure O2 104.0 mmHg (75.0-100.0) H Arterial Blood HCO3 20.0 mmol/L (22.0-26.0) L Arterial Blood Oxygen Saturation 96.8 % (95-100) Arterial Blood Base Excess -6.3 (-2-2) L Kristian Test Positive Stool Occult Blood Pending White Blood Count 10.8 K/UL (4.8-10.8) Red Blood Count 3.75 M/UL (4.70-6.10) L Hemoglobin 10.5 G/DL (14.2-18.0) #L Hematocrit 33.1 % (42.0-52.0) #L Mean Corpuscular Volume 88 FL (80-99) Mean Corpuscular Hemoglobin 28.1 PG (27.0-31.0) Mean Corpuscular Hemoglobin Concent 31.8 G/DL (32.0-36.0) L Red Cell Distribution Width 13.8 % (11.6-14.8) Platelet Count 317 K/UL (150-450) Mean Platelet Volume 6.3 FL (6.5-10.1) L Neutrophils (%) (Auto) 79.0 % (45.0-75.0) H Lymphocytes (%) (Auto) 14.4 % (20.0-45.0) L Monocytes (%) (Auto) 3.5 % (1.0-10.0) Eosinophils (%) (Auto) 2.7 % (0.0-3.0) Basophils (%) (Auto) 0.4 % (0.0-2.0) Reticulocyte Count 2.0 % (0.5-2.0) Sodium Level 152 MMOL/L (136-145) H Potassium Level 3.9 MMOL/L (3.5-5.1) Chloride Level 119 MMOL/L (98-107) H Carbon Dioxide Level 23 MMOL/L (21-32) Anion Gap 10 mmol/L (5-15) Blood Urea Nitrogen 36 mg/dL (7-18) H Creatinine 3.1 MG/DL (0.55-1.30) H Estimat Glomerular Filtration Rate mL/min (>60) Glucose Level 152 MG/DL (74-106) H Uric Acid 11.2 MG/DL (2.6-7.2) H Calcium Level 9.4 MG/DL (8.5-10.1) Phosphorus Level 5.2 MG/DL (2.5-4.9) H Magnesium Level 1.9 MG/DL (1.8-2.4) Iron Level 24 ug/dL (50-175) L Total Iron Binding Capacity 135 ug/dL (250-450) L Percent Iron Saturation 18 % (15-50) Unsaturated Iron Binding 111 ug/dL (112-346) L Ferritin 457 NG/ML (8-388) H Total Bilirubin 0.5 MG/DL (0.2-1.0) Aspartate Amino Transf (AST/SGOT) 20 U/L (15-37) Alanine Aminotransferase (ALT/SGPT) 9 U/L (12-78) L Alkaline Phosphatase 188 U/L (46-116) H C-Reactive Protein, Quantitative 12.2 mg/dL (0.00-0.90) H Total Protein 6.9 G/DL (6.4-8.2) Albumin 2.1 G/DL (3.4-5.0) L Globulin 4.8 g/dL Albumin/Globulin Ratio 0.4 (1.0-2.7) L Random Vancomycin Level 19.9 ug/mL Plan Problems: (1) Sepsis Assessment & Plan: 78-year-old male with sepsis, febrile, leukocytosis, bilateral foot amputations with left foot cellulitis and amputation site. Concerning for possible osteomyelitis. On IV antibiotics as per infectious disease. Leukocytosis improving. No active drainage noted from wound. Ulceration noted on lateral aspect of wound. Seems chronic overall. Noted to have a UTI. Blood cultures as below. No acute surgical intervention planned. 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 There is questionably a fragment of the fifth metatarsal stump present which if real is probably also involvement with osteomyelitis. This correlates with findings demonstrated on recent bone scan. Extensive lateral, dorsal, plantar soft tissue edema and associated ulcer. This is nonspecific, but probably indicate cellulitis given stated clinical history Podiatry input appreciated will discuss with patient and family for BKA medical clearance for surgery - currently not cleared as he is too ill Trend labs Thank you for this consultation we will follow with recommendations (2) Cellulitis of foot Assessment & Plan: Status post amputation at the mid foot. No definite appearing acute osseous destruction or periosteal reaction identified. Possible small focus of soft tissue ulceration or air at the anterior lateral aspect of the stump, clinically correlate. Findings: . There is increased blood flow to the left foot compared to the right. There is increased blood pool activity that is asymmetric indicative of cellulitis at the stump. Delayed planar images demonstrate mild focal increased activity at one of the areas probably along the lateral side of the transmetatarsal amputation. Please correlate with the location of the ulcer and consider evaluation with MRI for more specific evaluation of the anatomy involved. 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 There is questionably a fragment of the fifth metatarsal stump present which if real is probably also involvement with osteomyelitis. This correlates with findings demonstrated on recent bone scan. Extensive lateral, dorsal, plantar soft tissue edema and associated ulcer. This is nonspecific, but probably indicate cellulitis given stated clinical history Mariusz Diehl Dec 19, 2018 12:27
[2018-12-19] MEDS ORDERED: NS 500ML ONE (14:44)
[2018-12-19] MEDS ORDERED: Tubing Blood Filter IV ONE (14:44)
[2018-12-19 16:00] VITALS: BP 136/54
[2018-12-19] MEDS ORDERED: Tubing IV Secondary IV ONE (16:04)
[2018-12-19] MEDS: Morphine Sulfate 2mg/ml Inj(IV/IM USE ONLY) IV PRN (16:25)
--- NOTE | 2018-12-19 19:05 | NUR ---
NURSE NOTES: received patient from BENJAMIN Royal. patient is observed sleeping in bed,responsive to verbal commands, denies pain at this time. patient is on 4 L O2 via NC, no s/sx of respiratory distress noted at this time. soft bilateral wrist restraints noted, pulses palpable. F/C is patent and intact, draining well. IV sites are patent and intact, asymptomatic. KAREN PICC noted, dressing dry and intact. bed in lowest position and locked, siderails up X3, call light within reach. will continue to monitor.
--- NOTE | 2018-12-19 19:17 | NUR ---
HAND-OFF: Report given to BENJAMIN Morse.
[2018-12-19 20:00] VITALS: BP 143/59
[2018-12-19] MEDS: Dyna-Hex 2% Top Sol 2oz TOPIC SCH (20:31)
[2018-12-20] VITALS (7 sets, daily range): BP systolic 120–159; BP diastolic 50–67
--- NOTE | 2018-12-20 01:15 | Progress Note ---
DATE: 12/19/2018 SUBJECTIVE: The patient was transferred in the middle of the night to [facility] after he was found to have a pH of 7.28 with altered mental status and required restraint. PHYSICAL EXAMINATION: VITAL SIGNS: Blood pressure is 143/69, his pulse is 65, respirations are 18, and temperature 97.7. HEENT: Eyes were normal. ENT, mucous membranes were moist and intact. NECK: Supple with no JVD without lymph nodes. LUNGS: Clear. HEART: Normal sounds with regular beats. There is no tachycardia at rest. ABDOMEN: Soft, obese, and nontender with normal bowel sounds. EXTREMITIES: Warm without cyanosis, clubbing, or edema. LABORATORY DATA: His hemoglobin is 10.5, hematocrit 33.1 with MCV of 85, WBC of 10.8, and platelets of 317,000. His BUN and creatinine are 36 and 3.1 respectively. His sodium is 152, potassium 3.9, chloride 119, and CO2 is 23. His uric acid is 11.2. His iron of 24, total iron-binding capacity is 136, and saturation is 18. IMPRESSION AND PLAN: The patient's condition has markedly improved. He received two units of packed RBCs. He is not tachycardic. He is not delirious. He is not febrile and his WBCs are normal. The case has been discussed yesterday with general surgeon and Infectious Disease. Plan is to improve the patient's clinical condition so he can undergo amputation condition, he is not a candidate for surgery. Repeat laboratory tests will be done in the a.m. Ayush Chang M.D. DR: KURT JOB#: [id number] CC:
[2018-12-20] MEDS: dilTIAZem HCl 60mg tab ORAL SCH (06:00)
[2018-12-20] MEDS: NovoLOG Insulin Flexpen SUBQ SCH ×4 (06:20→21:00)
[2018-12-20 06:59] LABS: BASOPHILS % (AUTO) 0.5 % (0.0-2.0); EOSINOPHILS % (AUTO) 1.9 % (0.0-3.0); HEMATOCRIT 31.2 % (42.0-52.0); HEMOGLOBIN 10.1 G/DL (14.2-18.0); LYMPHOCYTES % (AUTO) 13.9 % (20.0-45.0); MEAN CORPUSCULAR VOLUME 88 FL (80-99); MONOCYTES % (AUTO) 3.7 % (1.0-10.0); PLATELET COUNT 296 K/UL (150-450); RED BLOOD COUNT 3.54 M/UL (4.70-6.10); RED CELL DISTRIBUTION WIDTH 14.1 % (11.6-14.8); WHITE BLOOD COUNT 10.5 K/UL (4.8-10.8)
[2018-12-20 07:00] LABS: ALANINE AMINOTRANSFERASE 8 U/L (12-78); ALBUMIN 1.9 G/DL (3.4-5.0); ALBUMIN/GLOBULIN RATIO 0.4 (1.0-2.7); ALKALINE PHOSPHATASE 165 U/L (46-116); ANION GAP 9 mmol/L (5-15); ASPARTATE AMINO TRANSFERASE 15 U/L (15-37); BILIRUBIN,TOTAL 0.4 MG/DL (0.2-1.0); BLOOD UREA NITROGEN 42 mg/dL (7-18); CALCIUM 8.9 MG/DL (8.5-10.1); CARBON DIOXIDE 24 MMOL/L (21-32); CHLORIDE 114 MMOL/L (98-107); CREATININE 4.1 MG/DL (0.55-1.30); POTASSIUM 4.1 MMOL/L (3.5-5.1); SODIUM 147 MMOL/L (136-145)
[2018-12-20 07:13] LABS: INR 1.4 (0.9-1.1)
--- NOTE | 2018-12-20 07:30 | NUR ---
NURSE NOTES: Received report from BENJAMIN Morse. Patient is resting in bed, in stable condition. No s/sx of SOB, breathing is even and unlabored, on 2L NC. Denies any presence of pain or discomfort at this time. Bed is in lowest position, brakes engaged. Call light is kept within easy reach. Will continue to monitor patient.
--- NOTE | 2018-12-20 07:39 | NUR ---
HAND-OFF: Report given to BENJAMIN Royal. patient is in stable condition.
--- NOTE | 2018-12-20 07:56 | General Progress Note ---
Assessment/Plan Assessment/Plan: (1) Renal failure (ARF), acute on chronic Assessment: Cr danial (2) Altered mental status (3) UTI (urinary tract infection) (4) Sepsis (5) Hypotension (6) anemia on HD fu stool ob fu H&H GI procedures if needed Subjective ROS Limited/Unobtainable: No Allergies: Coded Allergies: PENICILLINS (Verified Allergy, Unknown, 12/11/18) Objective Last 24 Hour Vital Signs Date Time Temp Pulse Resp B/P (MAP) Pulse Ox O2 Delivery O2 Flow Rate FiO2 12/20/18 06:00 57 127/59 12/20/18 04:00 57 12/20/18 04:00 Nasal Cannula 4.0 Nasal Cannula 2.0 12/20/18 04:00 96.6 57 20 127/59 (81) 100 12/20/18 00:00 96.6 56 20 120/50 (73) 99 12/20/18 00:00 Nasal Cannula 4.0 Nasal Cannula 2.0 12/20/18 00:00 51 12/19/18 21:23 65 143/59 12/19/18 21:23 65 143/59 12/19/18 21:00 Nasal Cannula 4.0 Nasal Cannula 2.0 12/19/18 20:00 62 12/19/18 20:00 97.7 65 18 143/59 (87) 100 12/19/18 19:29 72 26 100 Nasal Cannula 2.0 12/19/18 19:29 100 Nasal Cannula 2.0 12/19/18 17:32 61 12/19/18 16:00 98.1 61 20 136/54 (81) 100 12/19/18 13:31 60 119/74 12/19/18 12:00 98.8 65 20 140/74 (96) 100 12/19/18 12:00 61 12/19/18 09:58 74 12/19/18 09:09 64 151/72 12/19/18 09:00 Nasal Cannula 2.0 Nasal Cannula 2.0 12/19/18 08:00 99.3 75 20 151/64 (93) 100 Intake and Output 12/19/18 12/20/18 19:00 07:00 Intake Total 726.666 ml Output Total 700 ml 200 ml Balance -700 ml 526.666 ml IV Total 726.666 ml Output Urine Total 700 ml 200 ml Laboratory Tests 12/20/18 04:00: White Blood Count 10.5, Red Blood Count 3.54L, Hemoglobin 10.1L, Hematocrit 31.2L, Mean Corpuscular Volume 88, Mean Corpuscular Hemoglobin 28.6, Mean Corpuscular Hemoglobin Concent 32.5, Red Cell Distribution Width 14.1, Platelet Count 296, Mean Platelet Volume 6.5, Neutrophils (%) (Auto) 80.0H, Lymphocytes ( %) (Auto) 13.9L, Monocytes (%) (Auto) 3.7, Eosinophils (%) (Auto) 1.9, Basophils (%) (Auto) 0.5, Erythrocyte Sedimentation Rate [Pending], Prothrombin Time [Pending], Prothromb Time International Ratio [Pending], Activated Partial Thromboplast Time [Pending], Sodium Level 147H, Potassium Level 4.1, Chloride Level 114H, Carbon Dioxide Level 24, Anion Gap 9, Blood Urea Nitrogen 42H, Creatinine 4.1H, Estimat Glomerular Filtration Rate , Glucose Level 170H, Calcium Level 8.9, Total Bilirubin 0.4, Aspartate Amino Transf (AST/SGOT) 15, Alanine Aminotransferase (ALT/SGPT) 8L, Alkaline Phosphatase 165H, C-Reactive Protein, Quantitative 11.8H, Total Protein 6.7, Albumin 1.9L, Globulin 4.8, Albumin/Globulin Ratio 0.4L Height (Feet): 5 Height (Inches): 6.00 Weight (Pounds): 189 General Appearance: no apparent distress EENT: normal ENT inspection Neck: supple Cardiovascular: normal rate Respiratory/Chest: decreased breath sounds Abdomen: normal bowel sounds, non tender, soft Extremities: non-tender Lawrence Humphreys MD Dec 20, 2018 07:56
--- NOTE | 2018-12-20 08:00 | NUR ---
NURSE NOTES: Dr. Humphreys seen and examined patient at bedside.
[2018-12-20] MEDS: Spironolactone 25mg tab ORAL SCH (08:28)
[2018-12-20] MEDS: Carvedilol 12.5mg tab ORAL SCH (08:28)
[2018-12-20] MEDS: Docusate 100mg cap ORAL SCH ×3 (08:28→17:13)
[2018-12-20] MEDS: Pantoprazole Inj IVP SCH (08:28)
[2018-12-20] MEDS: Heparin 5000 units/ml inj SUBQ SCH ×2 (08:38→21:06)
--- NOTE | 2018-12-20 10:07 | NUR ---
RD ASSESSMENT & RECOMMENDATIONS SEE CARE ACTIVITY FOR COMPLETE ASSESSMENT DAILY ESTIMATED NEEDS: Needs based on Sepsis, 55.5kg abw 25-35 kcals/kg 3302-3123 total kcals 1.25-2 g protein/kg 69-111 g total protein 25-30 mL/kg 1347-7720 total fluid mLs NUTRITION DIAGNOSIS: * Swallowing difficulty R/T reduced alertness as evidenced by STORE ASSOCIATE recommends temporary nonoral feeding at this time. * Altered nutrition related lab values R/T sepsis, clinical condition as evidenced by critically elev wbc (26.1* ->11.2), hypotensive, now off pressor support and hypertensive, Tmax of 102.2-> now afebrile, elev BNP (10837 -> 49547), elev creat (3.3 ->1.7), low phos (1.6 -> wnl), low mag (1.6-> wnl). CURRENT DIET:NPO PO DIET RECOMMENDATIONS: IF SAFE FOR PO -> LOW NA, CCHO MED ENTERAL NUTRITION RECOMMENDATIONS: Glucerna 1.5 @ 45ml/hr x 24 hrs to provide 1080ml, 1620kcal, 89g prot, 820ml free water * W/ GI access, initiate Glucerna 1.5 @ 15ml/hr x 6 hrs * Advance 10ml q 4-6 hrs as tolerated to goal rate * HOB over 30 degrees/ water flush per MD ---- Monitor lytes, need for Renal TF. ------- ADDITIONAL RECOMMENDATIONS: * Per SNF: HT=5'0", UK=302hhw (12/10/18)/ Calibrate bedscale wt * W/ TF initiation, monitor lytes, daily, replete as needed (high risk for refeeding syndrome, poor PO intake since adm) * W/ oral diet, monitor PO intake, rec liberalized low Na, CCHO Med (monitor lytes, need for renal diet restrictions) * Wound healing:add MVI x1, Vit C 250mg QD, Andres 1pkt BID .
--- NOTE | 2018-12-20 10:34 | NUR ---
NURSE NOTES: Spoke with Dr. Chang via telephone, informed MD of ABG results this morning (pH 7.252, pCO2 49.4, pO2 133.9, HCO3 21.3, O2 Saturation 97.8), Dr. Chang acknowledged, per MD inform Dr. Crawford if he would like to order anything regarding ABG results. Noted. Also informed Dr. Chang that patient is taking Carvedilol 12.5 mg PO Q12HR and Diltiazem 60 mg PO Q8HR, medications currently without parameters and patient currently has HR [address] Chang acknowledged and ordered to discontinue Diltiazem and per Carvedilol - do not administer if HR < 55 bpm. order entered, noted, and carried out. Will continue to monitor patient.
--- NOTE | 2018-12-20 12:00 | NUR ---
NURSE NOTES: Informed Dr. Crawford of patient's ABG levels today, per Dr. Chang's instructions. Informed Dr. Crawford of ABG results of pH 7.252, pCO2 49.4, pO2 133.9, HCO3 21.3, O2 saturation 97.8 patient was on 4 L NC when ABG was taken. Dr. Crawford acknowledged and ordered "Titrations of FiO2 to SpO2 of 88-90%." Orders entered, noted, and carried out. Will continue to monitor patient.
--- NOTE | 2018-12-20 12:16 | NUR ---
NURSE NOTES: Patient refused afternoon medications, including Novolog. Patient is A&Ox4. Patient is noted NPO. Explained to patient risks and possible negative outcomes of not taking medications. Patient continued to refuse. Respected patient rights. Will continue to monitor patient.
--- NOTE | 2018-12-20 14:15 | NUR ---
NURSE NOTES: This nurse called and notified Dr. Vanegas that patient noted with urine output less than 30 cc/hr, patient has reyes catheter, is on D5W at 50 cc/hr, pt is NPO. Made Dr. Vanegas aware of situation, Dr. Vanegas acknowledged and expressed will put orders in. Noted. Patient is resting in bed, denies any pain or discomfort. Will continue to monitor patient.
--- NOTE | 2018-12-20 14:51 | Nephrology Progress Note ---
Assessment/Plan Problem List: (1) Renal failure (ARF), acute on chronic Assessment: Cr danial (2) Altered mental status (3) UTI (urinary tract infection) (4) Sepsis (5) Hypotension Assessment: shock Assessment Septic shock- was on pressors , now is off Diabetic nephropathy CKD Anemia s/p foot and LE amputations Plan ALbumin bolus hold coreg and diuretics optimize cardiac and pulmonary status Avoid nephrotoxics allopurinol urine studies 2D echo Left ventricular ejection fraction estimated to be 55-60 %. Kidney TELLO noted keep BP and BS in check Anemia daley per orders Subjective ROS Limited/Unobtainable: No Constitutional: Reports: malaise, weakness Objective Objective Last 24 Hour Vital Signs Date Time Temp Pulse Resp B/P (MAP) Pulse Ox O2 Delivery O2 Flow Rate FiO2 12/20/18 12:00 59 12/20/18 12:00 98.1 66 20 140/62 (88) 100 12/20/18 09:00 Nasal Cannula 4.0 Nasal Cannula 2.0 12/20/18 08:00 97.8 67 20 146/67 (93) 100 12/20/18 08:00 56 12/20/18 06:00 57 127/59 12/20/18 04:00 57 12/20/18 04:00 Nasal Cannula 4.0 Nasal Cannula 2.0 12/20/18 04:00 96.6 57 20 127/59 (81) 100 12/20/18 00:00 96.6 56 20 120/50 (73) 99 12/20/18 00:00 Nasal Cannula 4.0 Nasal Cannula 2.0 12/20/18 00:00 51 12/19/18 21:23 65 143/59 12/19/18 21:23 65 143/59 12/19/18 21:00 Nasal Cannula 4.0 Nasal Cannula 2.0 12/19/18 20:00 62 12/19/18 20:00 97.7 65 18 143/59 (87) 100 12/19/18 19:29 72 26 100 Nasal Cannula 2.0 28 12/19/18 19:29 100 Nasal Cannula 2.0 28 12/19/18 17:32 61 12/19/18 16:00 98.1 61 20 136/54 (81) 100 Intake and Output 12/19/18 12/20/18 19:00 07:00 Intake Total 726.666 ml Output Total 700 ml 200 ml Balance -700 ml 526.666 ml IV Total 726.666 ml Output Urine Total 700 ml 200 ml Laboratory Tests 12/20/18 04:00: White Blood Count 10.5, Red Blood Count 3.54L, Hemoglobin 10.1L, Hematocrit 31.2L, Mean Corpuscular Volume 88, Mean Corpuscular Hemoglobin 28.6, Mean Corpuscular Hemoglobin Concent 32.5, Red Cell Distribution Width 14.1, Platelet Count 296, Mean Platelet Volume 6.5, Neutrophils (%) (Auto) 80.0H, Lymphocytes ( %) (Auto) 13.9L, Monocytes (%) (Auto) 3.7, Eosinophils (%) (Auto) 1.9, Basophils (%) (Auto) 0.5, Erythrocyte Sedimentation Rate 112H, Prothrombin Time 14.3H, Prothromb Time International Ratio 1.4H, Activated Partial Thromboplast Time 43H, Sodium Level 147H, Potassium Level 4.1, Chloride Level 114H, Carbon Dioxide Level 24, Anion Gap 9, Blood Urea Nitrogen 42H, Creatinine 4.1H, Estimat Glomerular Filtration Rate , Glucose Level 170H, Calcium Level 8.9, Total Bilirubin 0.4, Aspartate Amino Transf (AST/SGOT) 15, Alanine Aminotransferase (ALT/SGPT) 8L, Alkaline Phosphatase 165H, C-Reactive Protein, Quantitative 11.8H, Total Protein 6.7, Albumin 1.9L, Globulin 4.8, Albumin/ Globulin Ratio 0.4L 12/20/18 08:12: Arterial Blood pH 7.252L, Arterial Blood Partial Pressure CO2 49.4H, Arterial Blood Partial Pressure O2 133.9H, Arterial Blood HCO3 21.3L, Arterial Blood Oxygen Saturation 97.8, Arterial Blood Base Excess -5.9L, Kristian Test Positive Height (Feet): 5 Height (Inches): 6.00 Weight (Pounds): 189 General Appearance: no apparent distress, lethargic, confused Cardiovascular: bradycardia Respiratory/Chest: decreased breath sounds Abdomen: distended Objective no change Naveed Vanegas MD Dec 20, 2018 14:51
--- NOTE | 2018-12-20 15:00 | NUR ---
NURSE NOTES: Dr. Chang seen and examined patient. Ordered CBC, CMP, magnesium level, ABG tomorrow morning, and Dr. Coffman as cardiology consult. Dr. Chang spoke with patient's granddaughter, Theresa, about patient's treatment. Orders entered, noted, and carried out. Will continue to monitor patient. Addendum: 12/20/18 at 2007 by WILLIAN CONDE RN NURSE NOTES: Dr. Chang also ordered Renal ultrasound. Order entered and noted.
--- NOTE | 2018-12-20 15:40 | Surgery Progress Note ---
Surgery Progress Note Subjective Additional Comments Afebrile, HD is stable, labs noted. ESR CRP trending down. Renal insufficiency. Case discussed with primary care physician Objective Last 24 Hour Vital Signs Date Time Temp Pulse Resp B/P (MAP) Pulse Ox O2 Delivery O2 Flow Rate FiO2 12/20/18 12:00 59 12/20/18 12:00 98.1 66 20 140/62 (88) 100 12/20/18 09:00 Nasal Cannula 4.0 Nasal Cannula 2.0 12/20/18 08:00 97.8 67 20 146/67 (93) 100 12/20/18 08:00 56 12/20/18 06:00 57 127/59 12/20/18 04:00 57 12/20/18 04:00 Nasal Cannula 4.0 Nasal Cannula 2.0 12/20/18 04:00 96.6 57 20 127/59 (81) 100 12/20/18 00:00 96.6 56 20 120/50 (73) 99 12/20/18 00:00 Nasal Cannula 4.0 Nasal Cannula 2.0 12/20/18 00:00 51 12/19/18 21:23 65 143/59 12/19/18 21:23 65 143/59 12/19/18 21:00 Nasal Cannula 4.0 Nasal Cannula 2.0 12/19/18 20:00 62 12/19/18 20:00 97.7 65 18 143/59 (87) 100 12/19/18 19:29 72 26 100 Nasal Cannula 2.0 28 12/19/18 19:29 100 Nasal Cannula 2.0 28 12/19/18 17:32 61 12/19/18 16:00 98.1 61 20 136/54 (81) 100 I&O Intake and Output 12/19/18 12/20/18 19:00 07:00 Intake Total 726.666 ml Output Total 700 ml 200 ml Balance -700 ml 526.666 ml IV Total 726.666 ml Output Urine Total 700 ml 200 ml Dressing: saturated Wound: other Drains: other Cardiovascular: RSR Respiratory: clear Abdomen: soft, flat, non-tender, present bowel sounds Extremities: edema, tenderness, no cyanosis Laboratory Tests Test 12/20/18 04:00 12/20/18 08:12 White Blood Count 10.5 K/UL (4.8-10.8) Red Blood Count 3.54 M/UL (4.70-6.10) L Hemoglobin 10.1 G/DL (14.2-18.0) L Hematocrit 31.2 % (42.0-52.0) L Mean Corpuscular Volume 88 FL (80-99) Mean Corpuscular Hemoglobin 28.6 PG (27.0-31.0) Mean Corpuscular Hemoglobin Concent 32.5 G/DL (32.0-36.0) Red Cell Distribution Width 14.1 % (11.6-14.8) Platelet Count 296 K/UL (150-450) Mean Platelet Volume 6.5 FL (6.5-10.1) Neutrophils (%) (Auto) 80.0 % (45.0-75.0) H Lymphocytes (%) (Auto) 13.9 % (20.0-45.0) L Monocytes (%) (Auto) 3.7 % (1.0-10.0) Eosinophils (%) (Auto) 1.9 % (0.0-3.0) Basophils (%) (Auto) 0.5 % (0.0-2.0) Erythrocyte Sedimentation Rate 112 MM/HR (0-20) H Prothrombin Time 14.3 SEC (9.30-11.50) H Prothromb Time International Ratio 1.4 (0.9-1.1) H Activated Partial Thromboplast Time 43 SEC (23-33) H Sodium Level 147 MMOL/L (136-145) H Potassium Level 4.1 MMOL/L (3.5-5.1) Chloride Level 114 MMOL/L (98-107) H Carbon Dioxide Level 24 MMOL/L (21-32) Anion Gap 9 mmol/L (5-15) Blood Urea Nitrogen 42 mg/dL (7-18) H Creatinine 4.1 MG/DL (0.55-1.30) H Estimat Glomerular Filtration Rate mL/min (>60) Glucose Level 170 MG/DL (74-106) H Calcium Level 8.9 MG/DL (8.5-10.1) Total Bilirubin 0.4 MG/DL (0.2-1.0) Aspartate Amino Transf (AST/SGOT) 15 U/L (15-37) Alanine Aminotransferase (ALT/SGPT) 8 U/L (12-78) L Alkaline Phosphatase 165 U/L (46-116) H C-Reactive Protein, Quantitative 11.8 mg/dL (0.00-0.90) H Total Protein 6.7 G/DL (6.4-8.2) Albumin 1.9 G/DL (3.4-5.0) L Globulin 4.8 g/dL Albumin/Globulin Ratio 0.4 (1.0-2.7) L Arterial Blood pH 7.252 (7.350-7.450) Arterial Blood Partial Pressure CO2 49.4 mmHg (35.0-45.0) H Arterial Blood Partial Pressure O2 133.9 mmHg (75.0-100.0) H Arterial Blood HCO3 21.3 mmol/L (22.0-26.0) L Arterial Blood Oxygen Saturation 97.8 % (95-100) Arterial Blood Base Excess -5.9 (-2-2) L Kristian Test Positive Plan Problems: (1) Sepsis Assessment & Plan: 78-year-old male with sepsis, febrile, leukocytosis, bilateral foot amputations with left foot cellulitis and amputation site. Concerning for possible osteomyelitis. On IV antibiotics as per infectious disease. Leukocytosis improving. No active drainage noted from wound. Ulceration noted on lateral aspect of wound. Seems chronic overall. Noted to have a UTI. Blood cultures as below. No acute surgical intervention planned. 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 There is questionably a fragment of the fifth metatarsal stump present which if real is probably also involvement with osteomyelitis. This correlates with findings demonstrated on recent bone scan. Extensive lateral, dorsal, plantar soft tissue edema and associated ulcer. This is nonspecific, but probably indicate cellulitis given stated clinical history Podiatry input appreciated will discuss with patient and family for BKA medical clearance for surgery - currently not cleared as he is too ill Trend labs Thank you for this consultation we will follow with recommendations (2) Cellulitis of foot Assessment & Plan: Status post amputation at the mid foot. No definite appearing acute osseous destruction or periosteal reaction identified. Possible small focus of soft tissue ulceration or air at the anterior lateral aspect of the stump, clinically correlate. Findings: . There is increased blood flow to the left foot compared to the right. There is increased blood pool activity that is asymmetric indicative of cellulitis at the stump. Delayed planar images demonstrate mild focal increased activity at one of the areas probably along the lateral side of the transmetatarsal amputation. Please correlate with the location of the ulcer and consider evaluation with MRI for more specific evaluation of the anatomy involved. 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 There is questionably a fragment of the fifth metatarsal stump present which if real is probably also involvement with osteomyelitis. This correlates with findings demonstrated on recent bone scan. Extensive lateral, dorsal, plantar soft tissue edema and associated ulcer. This is nonspecific, but probably indicate cellulitis given stated clinical history Mariusz Diehl Dec 20, 2018 15:40
[2018-12-20] MEDS: Morphine Sulfate 2mg/ml Inj(IV/IM USE ONLY) IV PRN (18:21)
--- NOTE | 2018-12-20 19:00 | NUR ---
NURSE NOTES: Received hand off report from Lele Linda RN. Pt is awake, confused, oriented to name only. O2 @ 2 lpm via nasal cannula, o2 sat @ 98%. Pt denies any pain, no signs or symptoms of distress or pain noted at this time. Pt is under fall risk precautions: bed in lowest position, call light within reach, pt in yellow socks and gown, fall risk notice at door. Pt educated pt to use call light when help is needed, verbalized understanding. Pt appears to be resting comfortably, will continue to monitor closey.
--- NOTE | 2018-12-20 19:03 | Infectious Diseases Prog Note ---
Assessment/Plan Assessment/Plan Assessment/Plan: 78 yo male with PMHx of DM, HTN , PVP s/p B/L Mid foot amps who presented to the ED on 12/11/18 with left foot infection. 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 There is questionably a fragment of the fifth metatarsal stump present which if real is probably also involvement with osteomyelitis. Bone scan for OM left foot : acute osteomyelitis. Difficult to anatomically locate the area involved. Foot X-ray 12/11/18 - Possible small focus of soft tissue ulceration or air at the anterior lateral aspect of the stump, clinically correlate. No definite appearing acute osseous destruction or periosteal reaction identified. Fever to 102 - Resolved Leukocytosis, Sp Septicemia =- Likely from foot infection Blood Cx 12/11/18 - Grp B strep Blood Cx 12/13/18 - Pend TTE - No veg ALEXIS ( ?2nd to Vanco) DM HTN PVP s/p B/L Mid foot amps PLAN - Continue Zyvox # 3 -12/18 Sp Vancomycin # 5 - 12/17 Sp Ertapenem # 5 - 12/13/18 S/P Amikacin #2 - Monitor CBC and Temp - Rpt Blood Cx - Surg : fup - Cadio :clearnce for BKA pending medical optimization Subjective Allergies: Coded Allergies: PENICILLINS (Verified Allergy, Unknown, 12/11/18) Subjective no acute event Afebrile Objective Vital Signs Last 24 Hour Vital Signs Date Time Temp Pulse Resp B/P (MAP) Pulse Ox O2 Delivery O2 Flow Rate FiO2 12/20/18 16:00 98.5 68 20 159/65 (96) 100 12/20/18 16:00 63 12/20/18 12:00 59 12/20/18 12:00 98.1 66 20 140/62 (88) 100 12/20/18 09:00 Nasal Cannula 4.0 Nasal Cannula 2.0 12/20/18 08:00 97.8 67 20 146/67 (93) 100 12/20/18 08:00 56 12/20/18 06:00 57 127/59 12/20/18 04:00 57 12/20/18 04:00 Nasal Cannula 4.0 Nasal Cannula 2.0 12/20/18 04:00 96.6 57 20 127/59 (81) 100 12/20/18 00:00 96.6 56 20 120/50 (73) 99 12/20/18 00:00 Nasal Cannula 4.0 Nasal Cannula 2.0 12/20/18 00:00 51 12/19/18 21:23 65 143/59 12/19/18 21:23 65 143/59 12/19/18 21:00 Nasal Cannula 4.0 Nasal Cannula 2.0 12/19/18 20:00 62 12/19/18 20:00 97.7 65 18 143/59 (87) 100 12/19/18 19:29 72 26 100 Nasal Cannula 2.0 28 12/19/18 19:29 100 Nasal Cannula 2.0 28 Height (Feet): 5 Height (Inches): 6.00 Weight (Pounds): 189 HEENT: anicteric Respiratory/Chest: normal breath sounds Cardiovascular: normal peripheral pulses Abdomen: soft, non tender Laboratory Tests Test 12/20/18 04:00 12/20/18 08:12 12/20/18 16:00 White Blood Count 10.5 K/UL (4.8-10.8) Red Blood Count 3.54 M/UL (4.70-6.10) L Hemoglobin 10.1 G/DL (14.2-18.0) L Hematocrit 31.2 % (42.0-52.0) L Mean Corpuscular Volume 88 FL (80-99) Mean Corpuscular Hemoglobin 28.6 PG (27.0-31.0) Mean Corpuscular Hemoglobin Concent 32.5 G/DL (32.0-36.0) Red Cell Distribution Width 14.1 % (11.6-14.8) Platelet Count 296 K/UL (150-450) Mean Platelet Volume 6.5 FL (6.5-10.1) Neutrophils (%) (Auto) 80.0 % (45.0-75.0) H Lymphocytes (%) (Auto) 13.9 % (20.0-45.0) L Monocytes (%) (Auto) 3.7 % (1.0-10.0) Eosinophils (%) (Auto) 1.9 % (0.0-3.0) Basophils (%) (Auto) 0.5 % (0.0-2.0) Erythrocyte Sedimentation Rate 112 MM/HR (0-20) H Prothrombin Time 14.3 SEC (9.30-11.50) H Prothromb Time International Ratio 1.4 (0.9-1.1) H Activated Partial Thromboplast Time 43 SEC (23-33) H Sodium Level 147 MMOL/L (136-145) H Potassium Level 4.1 MMOL/L (3.5-5.1) Chloride Level 114 MMOL/L (98-107) H Carbon Dioxide Level 24 MMOL/L (21-32) Anion Gap 9 mmol/L (5-15) Blood Urea Nitrogen 42 mg/dL (7-18) H Creatinine 4.1 MG/DL (0.55-1.30) H Estimat Glomerular Filtration Rate mL/min (>60) Glucose Level 170 MG/DL (74-106) H Calcium Level 8.9 MG/DL (8.5-10.1) Total Bilirubin 0.4 MG/DL (0.2-1.0) Aspartate Amino Transf (AST/SGOT) 15 U/L (15-37) Alanine Aminotransferase (ALT/SGPT) 8 U/L (12-78) L Alkaline Phosphatase 165 U/L (46-116) H C-Reactive Protein, Quantitative 11.8 mg/dL (0.00-0.90) H 11.5 mg/dL (0.00-0.90) H Total Protein 6.7 G/DL (6.4-8.2) Albumin 1.9 G/DL (3.4-5.0) L Globulin 4.8 g/dL Albumin/Globulin Ratio 0.4 (1.0-2.7) L Arterial Blood pH 7.252 (7.350-7.450) Arterial Blood Partial Pressure CO2 49.4 mmHg (35.0-45.0) H Arterial Blood Partial Pressure O2 133.9 mmHg (75.0-100.0) H Arterial Blood HCO3 21.3 mmol/L (22.0-26.0) L Arterial Blood Oxygen Saturation 97.8 % (95-100) Arterial Blood Base Excess -5.9 (-2-2) L Kristian Test Positive Current Medications Medications (Trade) Dose Ordered Sig/Cammy Route PRN Reason Start Time Stop Time Status Last Admin Dose Admin Acetaminophen (Tylenol) 650 mg Q4H PRN ORAL T>100.5 12/19/18 03:00 01/10/19 18:59 Albuterol/ Ipratropium (Albuterol/ Ipratropium) 3 ml Q4H PRN HHN Shortness of Breath 12/19/18 03:00 12/23/18 02:59 Allopurinol (Allopurinol) 300 mg DAILY ORAL 12/19/18 09:00 01/14/19 08:59 12/20/18 08:28 Chlorhexidine Gluconate (Yi-Hex 2%) 1 applic DAILY@2000 TOPIC 12/19/18 20:00 01/15/19 19:59 12/19/18 20:31 Clonidine HCl (Catapres TTS-1) 1 patch QWEEK TDERMAL 12/23/18 13:00 01/15/19 12:59 Dextrose (Dextrose 50%) 25 ml Q30M PRN IV Hypoglycemia 12/19/18 01:45 01/11/19 17:14 Dextrose (Dextrose 50%) 50 ml Q30M PRN IV Hypoglycemia 12/19/18 01:45 01/11/19 17:14 Diphenhydramine HCl (Benadryl) 25 mg Q6H PRN IVP Itching 12/19/18 02:08 01/13/19 02:07 Docusate Sodium (Colace) 100 mg THREE TIMES A DAY ORAL 12/19/18 09:00 01/11/19 12:59 Epoetin William (Epoetin William-EPBX(NON ESRD)) 10,000 unit FRI-FRI-FRI SUBQ 12/21/18 21:00 01/13/19 20:59 Heparin Sodium (Porcine) (Heparin 5000 units/ml) 5,000 units EVERY 12 HOURS SUBQ 12/19/18 09:00 01/10/19 20:59 12/20/18 08:38 Hydralazine HCl (Apresoline) 10 mg Q4H PRN IV bp over 160 syst 12/20/18 15:00 01/19/19 14:59 Hydromorphone HCl (Dilaudid) 1 mg Q4H PRN IVP Severe Pain (Pain Scale 7-10) 12/19/18 14:02 12/21/18 02:01 Insulin Aspart (NovoLOG) BEFORE MEALS AND HS SUBQ 12/19/18 06:30 01/11/19 20:59 12/20/18 17:13 Linezolid 300 ml @ 300 mls/hr Q12HR IVPB 12/19/18 09:00 12/25/18 15:59 12/20/18 08:37 Lorazepam (Ativan 2mg/ml 1ml) 2 mg Q4H PRN IV For Anxiety 12/19/18 02:12 12/22/18 02:11 Morphine Sulfate (Morphine Sulfate) 2 mg Q4H PRN IV Moderate Pain (Pain Scale 4-6) 12/19/18 12:30 12/22/18 12:29 12/20/18 18:21 Nitroglycerin (Nitro-Bid) 1 inch Q4H PRN TOPIC For High Blood Pressure 12/19/18 05:00 01/18/19 04:59 Ondansetron HCl (Zofran) 4 mg Q4H PRN IVP Nausea & Vomiting 12/19/18 02:13 01/17/19 02:12 Pantoprazole (Protonix) 40 mg DAILY IVP 12/19/18 09:00 01/18/19 08:59 12/20/18 08:28 Polyethylene Glycol (Miralax) 17 gm DAILYPRN PRN ORAL Constipation 12/19/18 02:13 01/13/19 02:12 Casa Martin MD Dec 20, 2018 19:03
--- NOTE | 2018-12-20 19:30 | NUR ---
HAND-OFF: Report given to BENJAMIN Duarte.
[2018-12-20] MEDS: Dyna-Hex 2% Top Sol 2oz TOPIC SCH (20:20)
[2018-12-20] MEDS ORDERED: Carvedilol 12.5mg tab ORAL SCH (21:00)
[2018-12-21] VITALS: BP 147/69
--- NOTE | 2018-12-21 00:05 | NUR ---
NURSE NOTES: Pt is in bed, awake. Pt complete bed bath with CHG given. Linens changed. Pt denies any pain, no signs and symptoms of pain noted at this time. Pt appears to be resting comfortably, will continue to monitor closely.
[2018-12-21] MEDS: Morphine Sulfate 2mg/ml Inj(IV/IM USE ONLY) IV PRN ×3 (01:54→21:44)
[2018-12-21 04:00] VITALS: BP 133/63
[2018-12-21 04:46] LABS: BASOPHILS % (AUTO) 0.5 % (0.0-2.0); HEMATOCRIT 31.7 % (42.0-52.0); HEMOGLOBIN 10.3 G/DL (14.2-18.0); LYMPHOCYTES % (AUTO) 14.2 % (20.0-45.0); MEAN CORPUSCULAR VOLUME 88 FL (80-99); MONOCYTES % (AUTO) 3.7 % (1.0-10.0); NEUTROPHILS % (AUTO) 79.6 % (45.0-75.0); PLATELET COUNT 306 K/UL (150-450); RED BLOOD COUNT 3.61 M/UL (4.70-6.10); WHITE BLOOD COUNT 9.5 K/UL (4.8-10.8)
[2018-12-21 04:55] LABS: AMMONIA 28 umol/L (11-32)
[2018-12-21 05:02] LABS: ALANINE AMINOTRANSFERASE 10 U/L (12-78); ALBUMIN 2.2 G/DL (3.4-5.0); ALBUMIN/GLOBULIN RATIO 0.5 (1.0-2.7); ALKALINE PHOSPHATASE 145 U/L (46-116); ANION GAP 9 mmol/L (5-15); ASPARTATE AMINO TRANSFERASE 15 U/L (15-37); BILIRUBIN,TOTAL 0.5 MG/DL (0.2-1.0); BLOOD UREA NITROGEN 47 mg/dL (7-18); CALCIUM 8.7 MG/DL (8.5-10.1); CARBON DIOXIDE 23 MMOL/L (21-32); CHLORIDE 111 MMOL/L (98-107); CREATININE 4.5 MG/DL (0.55-1.30); PHOSPHORUS 6.1 MG/DL (2.5-4.9); POTASSIUM 4.1 MMOL/L (3.5-5.1); SODIUM 143 MMOL/L (136-145)
--- NOTE | 2018-12-21 06:00 | NUR ---
NURSE NOTES: Noted magnesium level is 1.7. Left message to Dr. Crawford and awaiting call back.
[2018-12-21] MEDS: NovoLOG Insulin Flexpen SUBQ SCH ×4 (06:30→21:00)
--- NOTE | 2018-12-21 07:35 | NUR ---
HAND-OFF: Report given to Isak Kelley RN. Pt is stable, no signs or symptoms of distress at this time.
--- NOTE | 2018-12-21 07:36 | NUR ---
NURSE NOTES: RECEIVED PATIENT FROM Anh POLANCO RN. PATIENT IS SEEN RESTING IN BED COMFORTABLY. ON POST ACUTE CARE NURSE PRACTITIONER. NOTED ON 2L VIA NC. NO SIGNS OF CARDIO OR RESPI DISTRESS OF THE MOMENT. NPO FOR NOW, FOR SCHEDULED ST EVAL TODAY. LAMB NOTED CONNECTED TO BAG, PATENT AND DRAINING URINE. SKIN ALTERATION NOTED. IV ON R FA G22 AND L UA PICC, DRESSING DRY AND INTACT. CALL LIGHT WITHIN REACH. BED AT LOWEST POSITION. SIDE RAILS UP. WILL CONTINUE TO MONITOR.
[2018-12-21 08:00] VITALS: BP 149/68
--- NOTE | 2018-12-21 08:30 | Progress Note ---
DATE: 12/20/2018 SUBJECTIVE: The patient is awake, alert, afebrile, and hemodynamically stable. PHYSICAL EXAMINATION: VITAL SIGNS: Blood pressure 140/62, his pulse is 66, respirations of 20, and temperature 98.1. HEENT: Eyes were normal. ENT, mucous membranes were moist and intact. NECK: Supple with JVD. supraclavicular fossa. LUNGS: Bilateral rhonchi at both bases. HEART: Normal sounds with regular beats. ABDOMEN: Soft and nontender with normal bowel sounds. EXTREMITIES: Warm without cyanosis, clubbing, or edema. LABORATORY AND DIAGNOSTIC DATA: Hemoglobin is 10.1, hematocrit 31.2 with MCV of 98, WBC of 10.5, and platelets of 296,000. His BUN and creatinine are 42 and 4.1 respectively. It was 36 and 3.9 yesterday. His sodium was 147, potassium 4.1, chloride 114, and CO2 is 24. His calcium is 8.8. IMPRESSION: The patient has acute renal failure, congestive heart failure, both precipitated by sepsis in the left foot. PLAN: The case has been discussed in detail with the patient's daughter today and a change in his mental status and renal function and has been detailed to the patient. revealed Chanell albicans . The patient has metabolic acidosis with pH of 7.28, today deteriorated to 7.25. Nephrology job service consultant addressing the issue bradycardia. Repeat laboratory tests will be done in the a.m. Ayush Chang M.D. DR: TOREY JOB#: [id number] CC:
[2018-12-21] MEDS: Docusate 100mg cap ORAL SCH ×3 (09:00→18:00)
[2018-12-21] MEDS: Pantoprazole Inj IVP SCH (09:00)
[2018-12-21] MEDS: Heparin 5000 units/ml inj SUBQ SCH ×2 (09:02→20:16)
--- NOTE | 2018-12-21 10:00 | NUR ---
NURSE NOTES: SEEN AND EXAMINED BY DR AKBAR. INFORMED OF URINE OUTPUT FROM LAST NIGHT. WILL CONTINUE TO MONITOR.
--- NOTE | 2018-12-21 10:39 | NUR ---
S: ALERT BUT CONFUSED, COULD NOT RECALL CITY AND YEAR. ABLE TO EXPRESS BASIC NEEDS IN [place] ([facility]). O/A: REASSESS SWALLOW STATUS. PULLED OUT NGT 12/18 SO NPO FOR 2 DAYS. ASKING FOR WATER. H/O POOR TO NO INTAKE 12/12 TO 12/16 SO NGT PLACED 12/17. ON 2 LITERS NC, ABLE TO TOLERATE NECTAR THICK LIQUIDS VIA STRAW CONSECUTIVE SIPS W/O OVERT ASPIRATION BUT SLIGHT INCREASE IN RR (16 TO 20). GIVEN WATER CONSECUTIVE SIPS NO OVERT ASPIRATION BUT ALSO HAD INCREASE IN RR THAT WENT DOWN TO WFLS AFTER RESTING. MAY HAVE SILENT ASPIRATION RISK (NO FORMAL NEURO DX BUT HAS ASPIRATION RISK MOSTLY DUE TO RESP ISSUES IN COORDINATION AND POSSIBLE SILENT ASP RISK). GIVEN TSP PUREED, CHEWED UNNECESSARILY FOR 3 SECONDS (NO DENTITION) AND THEN SWALLOWED WITH FAIR HYOLARYNGEAL EXCURSION, NO ORAL RESIDUE NO OVERT ASPIRATION. GIVEN CRACKER, HE CHEWED A FEW SEC AND GAGGED, THEN SPIT OUT WHOLE CRACKER AND VOMITED UP SOME PHLEGM/SALIVA (MILD-MOD AMOUNTS). 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 SPOKE TO GRANDDTR WHO MAKES HIS DECISIONS (CHUNG), SHE WANTS NGT BACK IN GIVEN UPCOMING KIDNEY PROBLEMS/PROCEDURES AND LIKELY POOR INTAKE ESPECIALLY WITH MEDS. SHE DOES NOT WANT PEG AT THIS TIME. PATIENT ALSO DID NOT WANT PEG. FAMILY WANTS PO FOR QUALITY OF LIFE AT THIS TIME. PLAN: COMPLETE MOD BARIUM SWALLOW STUDY IP OR OP IF DC TO FURTHER ASSESS SWALLOW (INCLUDING ESOPHAGEAL F/THROUGH), DETERMINE SILENT ASPIRATION RISK/ETIOLOGY, AND ATTEMPT TRIAL TX. INITIATE LOW NA CCHO-MED TYPE DIET (PER RD) AND PER PRINT LINE INSPECTOR LIQUIFIED PUREED LIKE NECTAR THICK SOUP CONSISTENCY NO THIN LIQUIDS WITH POSTED ASPIRATION AND REFLUX PRECAUTIONS (HAS GERD DX) AND ONE TO ONE FEEDING. SEND GLUCERNA TID PER RD RECOMMENDATIONS CONSIDER CALORIE COUNT AND APPETITE STIMULANT. SKILLED DYSPHAGIA MANAGEMENT/TX AND COG-COM EVAL/TX MOSTLY FOR COMMUNICATION TIPS. EDUCATED/TRAINED BENJAMIN LIANG IN POSTED PRECAUTIONS. Addendum: 12/21/18 at 1041 by THERESE CABALLERO PRINT LINE INSPECTOR ON TOYIN BUT ABLE TO PARTICIPATE IN RE-EVAL PER DR VANEGAS. PER BENJAMIN FLAVIO THIS WEEKEND, WANTS PT TO BE REASSESED IN SWALLOW SKILLS. Addendum: 12/21/18 at 1051 by THERESE CABALLERO PRINT LINE INSPECTOR ADDENDUM: DR VANEGAS WANTS PATIENT TO HAVE PO ONLY FOR NOW SINCE HE WILL PULL OUT NGT AND NEED TO RESTRAINED. Juliocesar/W [facility] AND LEFT MESSAGE WITH DR FRANZ ([facility]).
--- NOTE | 2018-12-21 11:15 | GI Progress Note ---
Assessment/Plan Problems: (1) Hypertension ICD Codes: I10 - Essential (primary) hypertension SNOMED: 46799390 (2) Renal failure (ARF), acute on chronic ICD Codes: N17.9 - Acute kidney failure, unspecified; N18.9 - Chronic kidney disease, unspecified SNOMED: 284784016 (3) Diabetes mellitus ICD Codes: E11.9 - Type 2 diabetes mellitus without complications SNOMED: 92724896 (4) Acute encephalopathy ICD Codes: G93.40 - Encephalopathy, unspecified SNOMED: 45920462, 308570297 Status: unchanged Status Narrative Discussed with Dr. Humphreys. Assessment/Plan Family refused PEG Patient pulled NGT, will not replace Advance diet as tolerated on HD fu stool ob fu H&H GI procedures if needed The patient was seen and examined at bedside and all new and available data was reviewed in the patients chart. I agree with the above findings, impression and plan. (Patient seen earlier today. Signature stamp does not reflect patient encounter time.). - Lawrence Humphreys MD Subjective Subjective limited Objective Last 24 Hour Vital Signs Date Time Temp Pulse Resp B/P (MAP) Pulse Ox O2 Delivery O2 Flow Rate FiO2 12/21/18 09:00 Nasal Cannula 2.0 12/21/18 08:00 97.3 68 16 149/68 (95) 99 12/21/18 08:00 73 12/21/18 04:00 97.6 75 20 133/63 (86) 98 12/21/18 03:28 71 12/21/18 00:00 98.9 70 18 147/69 (95) 99 12/21/18 00:00 66 12/20/18 21:00 Nasal Cannula 2.0 12/20/18 20:00 66 12/20/18 20:00 97.7 67 18 146/61 (89) 99 12/20/18 16:00 98.5 68 20 159/65 (96) 100 12/20/18 16:00 63 12/20/18 12:00 59 12/20/18 12:00 98.1 66 20 140/62 (88) 100 Intake and Output 12/20/18 12/21/18 19:00 07:00 Intake Total 300 ml Output Total 175 ml 350 ml Balance -175 ml -50 ml IV Total 300 ml Output Urine Total 175 ml 350 ml Laboratory Tests Test 12/20/18 16:00 12/21/18 03:40 12/21/18 09:41 C-Reactive Protein, Quantitative 11.5 mg/dL (0.00-0.90) H White Blood Count 9.5 K/UL (4.8-10.8) Red Blood Count 3.61 M/UL (4.70-6.10) L Hemoglobin 10.3 G/DL (14.2-18.0) L Hematocrit 31.7 % (42.0-52.0) L Mean Corpuscular Volume 88 FL (80-99) Mean Corpuscular Hemoglobin 28.4 PG (27.0-31.0) Mean Corpuscular Hemoglobin Concent 32.3 G/DL (32.0-36.0) Red Cell Distribution Width 14.0 % (11.6-14.8) Platelet Count 306 K/UL (150-450) Mean Platelet Volume 6.9 FL (6.5-10.1) Neutrophils (%) (Auto) 79.6 % (45.0-75.0) H Lymphocytes (%) (Auto) 14.2 % (20.0-45.0) L Monocytes (%) (Auto) 3.7 % (1.0-10.0) Eosinophils (%) (Auto) 2.0 % (0.0-3.0) Basophils (%) (Auto) 0.5 % (0.0-2.0) Sodium Level 143 MMOL/L (136-145) Potassium Level 4.1 MMOL/L (3.5-5.1) Chloride Level 111 MMOL/L (98-107) H Carbon Dioxide Level 23 MMOL/L (21-32) Anion Gap 9 mmol/L (5-15) Blood Urea Nitrogen 47 mg/dL (7-18) H Creatinine 4.5 MG/DL (0.55-1.30) H Estimat Glomerular Filtration Rate mL/min (>60) Glucose Level 152 MG/DL (74-106) H Uric Acid 11.0 MG/DL (2.6-7.2) H Calcium Level 8.7 MG/DL (8.5-10.1) Phosphorus Level 6.1 MG/DL (2.5-4.9) H Magnesium Level 1.7 MG/DL (1.8-2.4) L Total Bilirubin 0.5 MG/DL (0.2-1.0) Aspartate Amino Transf (AST/SGOT) 15 U/L (15-37) Alanine Aminotransferase (ALT/SGPT) 10 U/L (12-78) L Alkaline Phosphatase 145 U/L (46-116) H Ammonia 28 umol/L (11-32) Troponin I 0.000 ng/mL (0.000-0.056) Pro-B-Type Natriuretic Peptide 86999 pg/mL (0-125) H Total Protein 6.8 G/DL (6.4-8.2) Albumin 2.2 G/DL (3.4-5.0) L Globulin 4.6 g/dL Albumin/Globulin Ratio 0.5 (1.0-2.7) L Random Vancomycin Level 14.2 ug/mL Arterial Blood pH 7.215 (7.350-7.450) Arterial Blood Partial Pressure CO2 52.0 mmHg (35.0-45.0) H Arterial Blood Partial Pressure O2 97.8 mmHg (75.0-100.0) Arterial Blood HCO3 20.6 mmol/L (22.0-26.0) L Arterial Blood Oxygen Saturation 96.4 % (95-100) Arterial Blood Base Excess -7.3 (-2-2) L Kristian Test Positive Height (Feet): 5 Height (Inches): 6.00 Weight (Pounds): 192 General Appearance: alert Cardiovascular: normal rate Respiratory/Chest: normal breath sounds, no respiratory distress Abdominal Exam: soft Fransisca Mccarty NP Dec 21, 2018 11:15
--- NOTE | 2018-12-21 11:51 | Diagnostic Imaging Report ---
Indication: Abnormal renal function tests Technique: Grayscale and duplex images of the kidneys, retroperitoneum, and bladder were obtained. Comparison: 12/12/2018 Findings: Exam is limited due to patient body habitus and condition. Right kidney measures 9.8 cm in length. Left kidney measures 9.5 cm in length. Left kidney is not optimally demonstrated. Both kidneys demonstrate grossly normal echogenicity. No hydronephrosis. No focal abnormality. Normal inferior vena cava. Bladder is nearly empty, contains a Lyles catheter. Note that the right renal cyst demonstrated on the prior study cannot be visualized. Incidentally noted is a moderate to large right pleural effusion. Impression: Limited exam, as described Grossly negative for hydronephrosis Nearly empty bladder containing a Lyles catheter Moderate to large right pleural effusion.
[2018-12-21 12:00] VITALS: BP 156/57
--- NOTE | 2018-12-21 13:00 | NUR ---
NURSE NOTES: PATIENT REFUSED TO EAT HIS MEAL. PATIENT KEPT CLEAN AND DRY. NO SIGNS OF DISTRESS. WILL CONTINUE TO MONITOR.
--- NOTE | 2018-12-21 13:09 | NUR ---
CASE MANAGEMENT: REVIEW 12/19/2018 SI:SEVERE SEPSIS. T 97.7 HR 65 RR 18 B/P 143/59 SATS 100% ON 4L/NC LABS: NA 152 CL 19 BUN 36 CR 3.1 GLU 152 PHOS 5.2 TBILI 457ALT 9 ALP 188 IS: ALLOPURINOL PO QD PROTONIX IV QD LINEZOLID IV Q12H INSULIN ASPART SUBQ AC/HS SDU 12/20/2018 SI:SEVERE SEPSIS. T 96.6 HR 57 RR 20 B/P 127/59 SATS 100% ON 4L/NC LABS: NA 147 CL 114 BUN 42 CR 4.1 GLU 170 ALT 8 ALP 165 CRP 11.8 ABGs PH 7.252 PCO2 49.4 PO2 133.9 HCO3 21.3 BE -5.9 IS: ALLOPURINOL PO QD PROTONIX IV QD LINEZOLID IV Q12H INSULIN ASPART SUBQ AC/HS SDU 12/21/2018 SI:SEVERE SEPSIS. T 97.7 HR 78 RR 18 B/P 156/57 SATS 100% ON 2L/NC LABS: CL 111 BUN 47 CR 4.5 GLU 152 URIC ACID 11 PHOS 6.1 MG 1.7 AST 10 ALP 145 BNP 13755 ABGs PJ 7.215 PCO2 52 HCO3 20.6 BE -7.3 IS: ALLOPURINOL PO QD PROTONIX IV QD LINEZOLID IV Q12H INSULIN ASPART SUBQ AC/HS SDU PLAN OF CARE PER GI>>> Family refused PEG Patient pulled NGT, will not replace Advance diet as tolerated on HD fu stool ob fu H&H
--- NOTE | 2018-12-21 13:15 | Nephrology Progress Note ---
Assessment/Plan Problem List: (1) Renal failure (ARF), acute on chronic Assessment: Cr danial (2) Altered mental status (3) UTI (urinary tract infection) (4) Sepsis (5) Hypotension Assessment: shock Assessment Septic shock- was on pressors , now is off Diabetic nephropathy CKD Anemia s/p foot and LE amputations Plan ALbumin bolus hold coreg and diuretics optimize cardiac and pulmonary status Avoid nephrotoxics allopurinol urine studies 2D echo Left ventricular ejection fraction estimated to be 55-60 %. Kidney TELLO noted keep BP and BS in check Anemia daley per orders Subjective ROS Limited/Unobtainable: No Constitutional: Reports: malaise, weakness Objective Objective Last 24 Hour Vital Signs Date Time Temp Pulse Resp B/P (MAP) Pulse Ox O2 Delivery O2 Flow Rate FiO2 12/21/18 12:00 97.7 78 18 156/57 (90) 100 12/21/18 09:00 Nasal Cannula 2.0 12/21/18 08:00 97.3 68 16 149/68 (95) 99 12/21/18 08:00 73 12/21/18 04:00 97.6 75 20 133/63 (86) 98 12/21/18 03:28 71 12/21/18 00:00 98.9 70 18 147/69 (95) 99 12/21/18 00:00 66 12/20/18 21:00 Nasal Cannula 2.0 12/20/18 20:00 66 12/20/18 20:00 97.7 67 18 146/61 (89) 99 12/20/18 16:00 98.5 68 20 159/65 (96) 100 12/20/18 16:00 63 Intake and Output 12/20/18 12/21/18 19:00 07:00 Intake Total 300 ml Output Total 175 ml 350 ml Balance -175 ml -50 ml IV Total 300 ml Output Urine Total 175 ml 350 ml Laboratory Tests 12/20/18 16:00: C-Reactive Protein, Quantitative 11.5H 12/21/18 03:40: White Blood Count 9.5, Red Blood Count 3.61L, Hemoglobin 10.3L, Hematocrit 31.7L , Mean Corpuscular Volume 88, Mean Corpuscular Hemoglobin 28.4, Mean Corpuscular Hemoglobin Concent 32.3, Red Cell Distribution Width 14.0, Platelet Count 306, Mean Platelet Volume 6.9, Neutrophils (%) (Auto) 79.6H, Lymphocytes ( %) (Auto) 14.2L, Monocytes (%) (Auto) 3.7, Eosinophils (%) (Auto) 2.0, Basophils (%) (Auto) 0.5, Sodium Level 143, Potassium Level 4.1, Chloride Level 111H, Carbon Dioxide Level 23, Anion Gap 9, Blood Urea Nitrogen 47H, Creatinine 4.5H, Estimat Glomerular Filtration Rate , Glucose Level 152H, Uric Acid 11.0H, Calcium Level 8.7, Phosphorus Level 6.1H, Magnesium Level 1.7L, Total Bilirubin 0.5, Aspartate Amino Transf (AST/SGOT) 15, Alanine Aminotransferase (ALT/SGPT) 10L, Alkaline Phosphatase 145H, Ammonia 28, Troponin I 0.000, Pro-B-Type Natriuretic Peptide 86450D, Total Protein 6.8, Albumin 2.2L, Globulin 4.6, Albumin/Globulin Ratio 0.5L, Random Vancomycin Level 14.2 12/21/18 09:41: Arterial Blood pH 7.215*L, Arterial Blood Partial Pressure CO2 52.0H, Arterial Blood Partial Pressure O2 97.8, Arterial Blood HCO3 20.6L, Arterial Blood Oxygen Saturation 96.4, Arterial Blood Base Excess -7.3L, Kristian Test Positive Height (Feet): 5 Height (Inches): 6.00 Weight (Pounds): 192 General Appearance: no apparent distress Cardiovascular: normal rate Respiratory/Chest: decreased breath sounds Abdomen: distended Objective no change Naveed Vanegas MD Dec 21, 2018 13:15
--- NOTE | 2018-12-21 13:22 | NUR ---
INSURANCE REVIEW FAXED TO [employer] [place]: CHELLE P:[id number] F:[phone] (FAX ALL CLINICALS) REF# [id number]
--- NOTE | 2018-12-21 13:43 | Pulmonolgy Critical Care Note ---
Critical Care - Asmt/Plan Problems: (1) Sepsis (2) UTI (urinary tract infection) (3) Altered mental status (4) Diabetes mellitus (5) History of hypertension (6) Hypotension Respiratory: monitor respiratory rate Cardiac: continue to monitor HR/BP Infectious Disease: check cultures Gastrointestinal: continue feedings/current rate Endocrine: monitor blood sugar, check TSH Notes Reviewed: director emergency, cardio, renal Discussed with: nurses, consultants, complex case managertraffic incident management manager - Objective Last 24 Hour Vital Signs Date Time Temp Pulse Resp B/P (MAP) Pulse Ox O2 Delivery O2 Flow Rate FiO2 12/21/18 13:35 100 Nasal Cannula 2.0 28 12/21/18 12:00 74 12/21/18 12:00 97.7 78 18 156/57 (90) 100 12/21/18 09:00 Nasal Cannula 2.0 12/21/18 08:00 97.3 68 16 149/68 (95) 99 12/21/18 08:00 73 12/21/18 07:00 76 24 100 Nasal Cannula 2.0 28 12/21/18 04:00 97.6 75 20 133/63 (86) 98 12/21/18 03:28 71 12/21/18 00:00 98.9 70 18 147/69 (95) 99 12/21/18 00:00 66 12/20/18 21:00 Nasal Cannula 2.0 12/20/18 20:00 66 12/20/18 20:00 97.7 67 18 146/61 (89) 99 12/20/18 16:00 98.5 68 20 159/65 (96) 100 12/20/18 16:00 63 Status: awake Condition: grave Lungs: clear Heart: HR/BP stable, regular Abdomen: soft, active bowel sounds Extremities: edema Accucheck: 184 Critical Care - Subjective ROS Limited/Unobtainable: No EKG Rhythm: Sinus Tachycardia FI02: 28 Sputum Amount: None Tube Feeding Amount: 30 I&O: Intake and Output 12/20/18 12/21/18 19:00 07:00 Intake Total 300 ml Output Total 175 ml 350 ml Balance -175 ml -50 ml IV Total 300 ml Output Urine Total 175 ml 350 ml Labs: Laboratory Tests Test 12/20/18 16:00 12/21/18 03:40 12/21/18 09:41 C-Reactive Protein, Quantitative 11.5 mg/dL (0.00-0.90) H White Blood Count 9.5 K/UL (4.8-10.8) Red Blood Count 3.61 M/UL (4.70-6.10) L Hemoglobin 10.3 G/DL (14.2-18.0) L Hematocrit 31.7 % (42.0-52.0) L Mean Corpuscular Volume 88 FL (80-99) Mean Corpuscular Hemoglobin 28.4 PG (27.0-31.0) Mean Corpuscular Hemoglobin Concent 32.3 G/DL (32.0-36.0) Red Cell Distribution Width 14.0 % (11.6-14.8) Platelet Count 306 K/UL (150-450) Mean Platelet Volume 6.9 FL (6.5-10.1) Neutrophils (%) (Auto) 79.6 % (45.0-75.0) H Lymphocytes (%) (Auto) 14.2 % (20.0-45.0) L Monocytes (%) (Auto) 3.7 % (1.0-10.0) Eosinophils (%) (Auto) 2.0 % (0.0-3.0) Basophils (%) (Auto) 0.5 % (0.0-2.0) Sodium Level 143 MMOL/L (136-145) Potassium Level 4.1 MMOL/L (3.5-5.1) Chloride Level 111 MMOL/L (98-107) H Carbon Dioxide Level 23 MMOL/L (21-32) Anion Gap 9 mmol/L (5-15) Blood Urea Nitrogen 47 mg/dL (7-18) H Creatinine 4.5 MG/DL (0.55-1.30) H Estimat Glomerular Filtration Rate mL/min (>60) Glucose Level 152 MG/DL (74-106) H Uric Acid 11.0 MG/DL (2.6-7.2) H Calcium Level 8.7 MG/DL (8.5-10.1) Phosphorus Level 6.1 MG/DL (2.5-4.9) H Magnesium Level 1.7 MG/DL (1.8-2.4) L Total Bilirubin 0.5 MG/DL (0.2-1.0) Aspartate Amino Transf (AST/SGOT) 15 U/L (15-37) Alanine Aminotransferase (ALT/SGPT) 10 U/L (12-78) L Alkaline Phosphatase 145 U/L (46-116) H Ammonia 28 umol/L (11-32) Troponin I 0.000 ng/mL (0.000-0.056) Pro-B-Type Natriuretic Peptide 68659 pg/mL (0-125) H Total Protein 6.8 G/DL (6.4-8.2) Albumin 2.2 G/DL (3.4-5.0) L Globulin 4.6 g/dL Albumin/Globulin Ratio 0.5 (1.0-2.7) L Random Vancomycin Level 14.2 ug/mL Arterial Blood pH 7.215 (7.350-7.450) Arterial Blood Partial Pressure CO2 52.0 mmHg (35.0-45.0) H Arterial Blood Partial Pressure O2 97.8 mmHg (75.0-100.0) Arterial Blood HCO3 20.6 mmol/L (22.0-26.0) L Arterial Blood Oxygen Saturation 96.4 % (95-100) Arterial Blood Base Excess -7.3 (-2-2) L Kristian Test Positive Karrie Crawford MD Dec 21, 2018 13:43
--- NOTE | 2018-12-21 15:15 | Infectious Diseases Prog Note ---
Assessment/Plan Assessment/Plan Assessment/Plan: 78 yo male with PMHx of DM, HTN , PVP s/p B/L Mid foot amps who presented to the ED on 12/11/18 with left foot infection. 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 There is questionably a fragment of the fifth metatarsal stump present which if real is probably also involvement with osteomyelitis. Bone scan for OM left foot : acute osteomyelitis. Difficult to anatomically locate the area involved. Foot X-ray 12/11/18 - Possible small focus of soft tissue ulceration or air at the anterior lateral aspect of the stump, clinically correlate. No definite appearing acute osseous destruction or periosteal reaction identified. Fever to 102 - Resolved Leukocytosis, Sp Septicemia =- Likely from foot infection Blood Cx 12/11/18 - Grp B strep Blood Cx 12/13/18 - Pend TTE - No veg ALEXIS ( ?2nd to Vanco) DM HTN PVP s/p B/L Mid foot amps PLAN: - Continue Zyvox # 4 , may swich to Dapto if no plan of BKA for jail AB Rx -12/18 Sp Vancomycin # 5 - 12/17 Sp Ertapenem # 5 - 12/13/18 S/P Amikacin #2 - Monitor CBC and Temp - Rpt Blood Cx - Surg : fup - Cadio :clearnce for BKA pending medical optimization Subjective Allergies: Coded Allergies: PENICILLINS (Verified Allergy, Unknown, 12/11/18) Subjective Afebrile Objective Vital Signs Last 24 Hour Vital Signs Date Time Temp Pulse Resp B/P (MAP) Pulse Ox O2 Delivery O2 Flow Rate FiO2 12/21/18 13:35 100 Nasal Cannula 2.0 28 12/21/18 12:00 74 12/21/18 12:00 97.7 78 18 156/57 (90) 100 12/21/18 09:00 Nasal Cannula 2.0 12/21/18 08:00 97.3 68 16 149/68 (95) 99 12/21/18 08:00 73 12/21/18 07:00 76 24 100 Nasal Cannula 2.0 28 12/21/18 04:00 97.6 75 20 133/63 (86) 98 12/21/18 03:28 71 12/21/18 00:00 98.9 70 18 147/69 (95) 99 12/21/18 00:00 66 12/20/18 21:00 Nasal Cannula 2.0 12/20/18 20:00 66 12/20/18 20:00 97.7 67 18 146/61 (89) 99 12/20/18 16:00 98.5 68 20 159/65 (96) 100 12/20/18 16:00 63 Height (Feet): 5 Height (Inches): 6.00 Weight (Pounds): 192 HEENT: anicteric Respiratory/Chest: normal breath sounds Abdomen: no organomegaly Laboratory Tests Test 12/20/18 16:00 12/21/18 03:40 12/21/18 09:41 C-Reactive Protein, Quantitative 11.5 mg/dL (0.00-0.90) H White Blood Count 9.5 K/UL (4.8-10.8) Red Blood Count 3.61 M/UL (4.70-6.10) L Hemoglobin 10.3 G/DL (14.2-18.0) L Hematocrit 31.7 % (42.0-52.0) L Mean Corpuscular Volume 88 FL (80-99) Mean Corpuscular Hemoglobin 28.4 PG (27.0-31.0) Mean Corpuscular Hemoglobin Concent 32.3 G/DL (32.0-36.0) Red Cell Distribution Width 14.0 % (11.6-14.8) Platelet Count 306 K/UL (150-450) Mean Platelet Volume 6.9 FL (6.5-10.1) Neutrophils (%) (Auto) 79.6 % (45.0-75.0) H Lymphocytes (%) (Auto) 14.2 % (20.0-45.0) L Monocytes (%) (Auto) 3.7 % (1.0-10.0) Eosinophils (%) (Auto) 2.0 % (0.0-3.0) Basophils (%) (Auto) 0.5 % (0.0-2.0) Sodium Level 143 MMOL/L (136-145) Potassium Level 4.1 MMOL/L (3.5-5.1) Chloride Level 111 MMOL/L (98-107) H Carbon Dioxide Level 23 MMOL/L (21-32) Anion Gap 9 mmol/L (5-15) Blood Urea Nitrogen 47 mg/dL (7-18) H Creatinine 4.5 MG/DL (0.55-1.30) H Estimat Glomerular Filtration Rate mL/min (>60) Glucose Level 152 MG/DL (74-106) H Uric Acid 11.0 MG/DL (2.6-7.2) H Calcium Level 8.7 MG/DL (8.5-10.1) Phosphorus Level 6.1 MG/DL (2.5-4.9) H Magnesium Level 1.7 MG/DL (1.8-2.4) L Total Bilirubin 0.5 MG/DL (0.2-1.0) Aspartate Amino Transf (AST/SGOT) 15 U/L (15-37) Alanine Aminotransferase (ALT/SGPT) 10 U/L (12-78) L Alkaline Phosphatase 145 U/L (46-116) H Ammonia 28 umol/L (11-32) Troponin I 0.000 ng/mL (0.000-0.056) Pro-B-Type Natriuretic Peptide 82897 pg/mL (0-125) H Total Protein 6.8 G/DL (6.4-8.2) Albumin 2.2 G/DL (3.4-5.0) L Globulin 4.6 g/dL Albumin/Globulin Ratio 0.5 (1.0-2.7) L Random Vancomycin Level 14.2 ug/mL Arterial Blood pH 7.215 (7.350-7.450) Arterial Blood Partial Pressure CO2 52.0 mmHg (35.0-45.0) H Arterial Blood Partial Pressure O2 97.8 mmHg (75.0-100.0) Arterial Blood HCO3 20.6 mmol/L (22.0-26.0) L Arterial Blood Oxygen Saturation 96.4 % (95-100) Arterial Blood Base Excess -7.3 (-2-2) L Kristian Test Positive Current Medications Medications (Trade) Dose Ordered Sig/Cammy Route PRN Reason Start Time Stop Time Status Last Admin Dose Admin Acetaminophen (Tylenol) 650 mg Q4H PRN ORAL T>100.5 12/19/18 03:00 01/10/19 18:59 Albuterol/ Ipratropium (Albuterol/ Ipratropium) 3 ml Q4H PRN HHN Shortness of Breath 12/19/18 03:00 12/23/18 02:59 Allopurinol (Allopurinol) 300 mg DAILY ORAL 12/19/18 09:00 01/14/19 08:59 12/21/18 09:00 Chlorhexidine Gluconate (Yi-Hex 2%) 1 applic DAILY@2000 TOPIC 12/19/18 20:00 01/15/19 19:59 12/20/18 20:20 Clonidine HCl (Catapres TTS-1) 1 patch QWEEK TDERMAL 12/23/18 13:00 01/15/19 12:59 Dextrose (Dextrose 50%) 25 ml Q30M PRN IV Hypoglycemia 12/19/18 01:45 01/11/19 17:14 Dextrose (Dextrose 50%) 50 ml Q30M PRN IV Hypoglycemia 12/19/18 01:45 01/11/19 17:14 Diphenhydramine HCl (Benadryl) 25 mg Q6H PRN IVP Itching 12/19/18 02:08 01/13/19 02:07 Docusate Sodium (Colace) 100 mg THREE TIMES A DAY ORAL 12/19/18 09:00 01/11/19 12:59 12/21/18 12:55 Epoetin William (Epoetin William-EPBX(NON ESRD)) 8,000 unit FRI-WED-FRI SUBQ 12/21/18 21:00 01/20/19 20:59 Heparin Sodium (Porcine) (Heparin 5000 units/ml) 5,000 units EVERY 12 HOURS SUBQ 12/19/18 09:00 01/10/19 20:59 12/21/18 09:02 Hydralazine HCl (Apresoline) 10 mg Q4H PRN IV bp over 160 syst 12/20/18 15:00 01/19/19 14:59 Insulin Aspart (NovoLOG) BEFORE MEALS AND HS SUBQ 12/19/18 06:30 01/11/19 20:59 12/21/18 12:55 Linezolid 300 ml @ 300 mls/hr Q12HR IVPB 12/19/18 09:00 12/25/18 15:59 12/21/18 08:59 Lorazepam (Ativan 2mg/ml 1ml) 2 mg Q4H PRN IV For Anxiety 12/19/18 02:12 12/22/18 02:11 Morphine Sulfate (Morphine Sulfate) 2 mg Q4H PRN IV Moderate Pain (Pain Scale 4-6) 12/19/18 12:30 12/22/18 12:29 12/21/18 12:50 Nitroglycerin (Nitro-Bid) 1 inch Q4H PRN TOPIC For High Blood Pressure 12/19/18 05:00 01/18/19 04:59 Ondansetron HCl (Zofran) 4 mg Q4H PRN IVP Nausea & Vomiting 12/19/18 02:13 01/17/19 02:12 Pantoprazole (Protonix) 40 mg DAILY IVP 12/19/18 09:00 01/18/19 08:59 12/21/18 09:00 Polyethylene Glycol (Miralax) 17 gm DAILYPRN PRN ORAL Constipation 12/19/18 02:13 01/13/19 02:12 Casa Martin MD Dec 21, 2018 15:15
[2018-12-21 16:00] VITALS: BP 134/61
--- NOTE | 2018-12-21 16:00 | Surgery Progress Note ---
Surgery Progress Note Subjective Additional Comments Patient seen and examined bedside. Seemingly comfortable. No acute events. Dressings changed and wound care applied. No leukocytosis. ESR and CRP trending down. Renal function deteriorating. Objective Last 24 Hour Vital Signs Date Time Temp Pulse Resp B/P (MAP) Pulse Ox O2 Delivery O2 Flow Rate FiO2 12/21/18 13:35 100 Nasal Cannula 2.0 28 12/21/18 12:00 74 12/21/18 12:00 97.7 78 18 156/57 (90) 100 12/21/18 09:00 Nasal Cannula 2.0 12/21/18 08:00 97.3 68 16 149/68 (95) 99 12/21/18 08:00 73 12/21/18 07:00 76 24 100 Nasal Cannula 2.0 28 12/21/18 04:00 97.6 75 20 133/63 (86) 98 12/21/18 03:28 71 12/21/18 00:00 98.9 70 18 147/69 (95) 99 12/21/18 00:00 66 12/20/18 21:00 Nasal Cannula 2.0 12/20/18 20:00 66 12/20/18 20:00 97.7 67 18 146/61 (89) 99 12/20/18 16:00 98.5 68 20 159/65 (96) 100 12/20/18 16:00 63 I&O Intake and Output 12/20/18 12/21/18 19:00 07:00 Intake Total 300 ml Output Total 175 ml 350 ml Balance -175 ml -50 ml IV Total 300 ml Output Urine Total 175 ml 350 ml Dressing: dry Wound: clean Cardiovascular: RSR Respiratory: clear Abdomen: soft, flat, non-tender, present bowel sounds Extremities: edema, no tenderness, no cyanosis, other Laboratory Tests Test 12/21/18 03:40 12/21/18 09:41 White Blood Count 9.5 K/UL (4.8-10.8) Red Blood Count 3.61 M/UL (4.70-6.10) L Hemoglobin 10.3 G/DL (14.2-18.0) L Hematocrit 31.7 % (42.0-52.0) L Mean Corpuscular Volume 88 FL (80-99) Mean Corpuscular Hemoglobin 28.4 PG (27.0-31.0) Mean Corpuscular Hemoglobin Concent 32.3 G/DL (32.0-36.0) Red Cell Distribution Width 14.0 % (11.6-14.8) Platelet Count 306 K/UL (150-450) Mean Platelet Volume 6.9 FL (6.5-10.1) Neutrophils (%) (Auto) 79.6 % (45.0-75.0) H Lymphocytes (%) (Auto) 14.2 % (20.0-45.0) L Monocytes (%) (Auto) 3.7 % (1.0-10.0) Eosinophils (%) (Auto) 2.0 % (0.0-3.0) Basophils (%) (Auto) 0.5 % (0.0-2.0) Sodium Level 143 MMOL/L (136-145) Potassium Level 4.1 MMOL/L (3.5-5.1) Chloride Level 111 MMOL/L (98-107) H Carbon Dioxide Level 23 MMOL/L (21-32) Anion Gap 9 mmol/L (5-15) Blood Urea Nitrogen 47 mg/dL (7-18) H Creatinine 4.5 MG/DL (0.55-1.30) H Estimat Glomerular Filtration Rate mL/min (>60) Glucose Level 152 MG/DL (74-106) H Uric Acid 11.0 MG/DL (2.6-7.2) H Calcium Level 8.7 MG/DL (8.5-10.1) Phosphorus Level 6.1 MG/DL (2.5-4.9) H Magnesium Level 1.7 MG/DL (1.8-2.4) L Total Bilirubin 0.5 MG/DL (0.2-1.0) Aspartate Amino Transf (AST/SGOT) 15 U/L (15-37) Alanine Aminotransferase (ALT/SGPT) 10 U/L (12-78) L Alkaline Phosphatase 145 U/L (46-116) H Ammonia 28 umol/L (11-32) Troponin I 0.000 ng/mL (0.000-0.056) Pro-B-Type Natriuretic Peptide 36915 pg/mL (0-125) H Total Protein 6.8 G/DL (6.4-8.2) Albumin 2.2 G/DL (3.4-5.0) L Globulin 4.6 g/dL Albumin/Globulin Ratio 0.5 (1.0-2.7) L Random Vancomycin Level 14.2 ug/mL Arterial Blood pH 7.215 (7.350-7.450) Arterial Blood Partial Pressure CO2 52.0 mmHg (35.0-45.0) H Arterial Blood Partial Pressure O2 97.8 mmHg (75.0-100.0) Arterial Blood HCO3 20.6 mmol/L (22.0-26.0) L Arterial Blood Oxygen Saturation 96.4 % (95-100) Arterial Blood Base Excess -7.3 (-2-2) L Kristian Test Positive Plan Problems: (1) Sepsis Assessment & Plan: 78-year-old male with sepsis, febrile, leukocytosis, bilateral foot amputations with left foot cellulitis and amputation site. Concerning for possible osteomyelitis. On IV antibiotics as per infectious disease. Leukocytosis improving. No active drainage noted from wound. Ulceration noted on lateral aspect of wound. Seems chronic overall. Noted to have a UTI. Blood cultures as below. No acute surgical intervention planned. 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 There is questionably a fragment of the fifth metatarsal stump present which if real is probably also involvement with osteomyelitis. This correlates with findings demonstrated on recent bone scan. Extensive lateral, dorsal, plantar soft tissue edema and associated ulcer. This is nonspecific, but probably indicate cellulitis given stated clinical history Podiatry input appreciated will discuss with patient and family for BKA medical clearance for surgery - currently not cleared as he is too ill Trend labs Thank you for this consultation we will follow with recommendations (2) Cellulitis of foot Assessment & Plan: Status post amputation at the mid foot. No definite appearing acute osseous destruction or periosteal reaction identified. Possible small focus of soft tissue ulceration or air at the anterior lateral aspect of the stump, clinically correlate. Findings: . There is increased blood flow to the left foot compared to the right. There is increased blood pool activity that is asymmetric indicative of cellulitis at the stump. Delayed planar images demonstrate mild focal increased activity at one of the areas probably along the lateral side of the transmetatarsal amputation. Please correlate with the location of the ulcer and consider evaluation with MRI for more specific evaluation of the anatomy involved. 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 There is questionably a fragment of the fifth metatarsal stump present which if real is probably also involvement with osteomyelitis. This correlates with findings demonstrated on recent bone scan. Extensive lateral, dorsal, plantar soft tissue edema and associated ulcer. This is nonspecific, but probably indicate cellulitis given stated clinical history Mariusz Diehl Dec 21, 2018 16:00
--- NOTE | 2018-12-21 17:00 | NUR ---
NURSE NOTES: NNO FOR ABG RESULT. PATIENT REFUSED HIS MEAL. NON-ADMIN NOVOLOG. WILL CONTINUE TO MONITOR.
--- NOTE | 2018-12-21 18:30 | NUR ---
NURSE NOTES: INFORMED DR VANEGAS ABOUT ABG RESULT. AWAITING FOR CALL BACK. TOLERATING 2L NC SATING AT 98%. NO SIGNS OF DISTRESS./ WILL CONTINUE TO MONITOR.
--- NOTE | 2018-12-21 18:31 | NUR ---
NURSE NOTES: PATIENT REPOSITIONED. WILL CONTINUE TO MONITOR.
--- NOTE | 2018-12-21 18:46 | NUR ---
NURSE NOTES: INFORMED DR VANEGAS OF US RENAL RESULT. WILL CONTINUE TO MONITOR.
--- NOTE | 2018-12-21 19:00 | NUR ---
NURSE NOTES: Hand off report received from Isak Kelley RN. Pt in bed, awake, oriented to name. Left double lumen PICC intact, patent, and asymptomatic. Pt dressing is clean dry and intact, dressing changed by Isak during shift. PIV patent and salie locked. 02 at 98% with 2 L via nasal cannula. Pt appears comfortable, denies any pain; no signs and symptoms of distress at this time. Will continue to monitor closely.
--- NOTE | 2018-12-21 19:03 | NUR ---
HAND-OFF: Report given to Anh Coreas RN.
[2018-12-21 20:00] VITALS: BP 149/57
[2018-12-21] MEDS: Dyna-Hex 2% Top Sol 2oz TOPIC SCH (20:07)
--- NOTE | 2018-12-21 20:20 | NUR ---
NURSE NOTES: Pt refused to eat his meal (dinner), stating he's was not hungry. No Novolog administered at this time. Pt appears comfortable, denies any pain or distress. Will continue to monitor closely.
[2018-12-21] MEDS ORDERED: Epoetin Alfa-EPBX (NON ESRD)10,000 unit/ml vial SUBQ SCH (21:00)
[2018-12-21] MEDS ORDERED: Epoetin Alfa-EPBX (NON ESRD)4000 units/ml vial SUBQ SCH (21:00)
[2018-12-22] VITALS: BP 146/60
--- NOTE | 2018-12-22 00:47 | NUR ---
NURSE NOTES: Pt appears to be resting comfortably at this time. Pt complained of pain earlier in the evening, administered Morphine. Pt states it was effective, denies any pain on reassessment. Pt is stable, sinus rhythm, no signs or symptoms of distress at this time. Will continue to monitor.
[2018-12-22] MEDS: Morphine Sulfate 2mg/ml Inj(IV/IM USE ONLY) IV PRN ×2 (01:51→09:21)
[2018-12-22 04:00] VITALS: BP 139/64
--- NOTE | 2018-12-22 04:00 | Progress Note ---
DATE: 12/21/2018 SUBJECTIVE: The patient is awake, alert, lethargic, but hemodynamically stable, and afebrile. PHYSICAL EXAMINATION: VITAL SIGNS: Blood pressure 134/61, his pulse is 72, respirations 18, temperature 98.1. HEENT: Eyes were normal. ENT, mucous membranes were moist and intact. NECK: Supple. There is no JVD. LUNGS: Clear. HEART: Normal sounds with regular beat. ABDOMEN: Soft and nontender with normal bowel sounds. EXTREMITIES: Warm without cyanosis, clubbing, or edema. His intake and output was 1499 albumin and 500 . His output was 1950. His output today was 525, yesterday was . LABORATORY DATA: Hemoglobin is 10.3, hematocrit 31.7 with MCV of 58, WBC of 9.5, and platelets of 306. His BUN/creatinine is 47 and 4.5. It was 42 and 4.1 yesterday. Sodium 143, potassium 4.1, chloride 111, CO2 is 23. Uric acid is 11. Calcium is 8.7. Phosphorus is 6.1. Magnesium is 1.7. His ProBNP was nearly 30,000. ABG today, pH was 7.1, pCO2 was 52, pO2 97, O2 saturation was 96, bicarb was 20. IMPRESSION: The patient clinically is slightly improved, who had his renal function deteriorated. Repeat laboratory tests will be done in the a.m. Ayush Chang M.D. DR: YAMILETH JOB#: [id number] CC:
[2018-12-22 05:23] LABS: BASOPHILS % (AUTO) 0.7 % (0.0-2.0); EOSINOPHILS % (AUTO) 1.3 % (0.0-3.0); HEMATOCRIT 31.4 % (42.0-52.0); LYMPHOCYTES % (AUTO) 15.9 % (20.0-45.0); MEAN CORPUSCULAR VOLUME 88 FL (80-99); NEUTROPHILS % (AUTO) 78.2 % (45.0-75.0); PLATELET COUNT 332 K/UL (150-450); RED BLOOD COUNT 3.55 M/UL (4.70-6.10); RED CELL DISTRIBUTION WIDTH 14.4 % (11.6-14.8); WHITE BLOOD COUNT 9.3 K/UL (4.8-10.8)
[2018-12-22 06:12] LABS: ALANINE AMINOTRANSFERASE 13 U/L (12-78); ALBUMIN 2.4 G/DL (3.4-5.0); ALBUMIN/GLOBULIN RATIO 0.5 (1.0-2.7); ALKALINE PHOSPHATASE 135 U/L (46-116); ANION GAP 12 mmol/L (5-15); ASPARTATE AMINO TRANSFERASE 15 U/L (15-37); BILIRUBIN,TOTAL 0.5 MG/DL (0.2-1.0); BLOOD UREA NITROGEN 50 mg/dL (7-18); CALCIUM 8.6 MG/DL (8.5-10.1); CARBON DIOXIDE 23 MMOL/L (21-32); CHLORIDE 111 MMOL/L (98-107); CREATININE 4.6 MG/DL (0.55-1.30); PHOSPHORUS 6.4 MG/DL (2.5-4.9); POTASSIUM 4.2 MMOL/L (3.5-5.1); SODIUM 145 MMOL/L (136-145)
[2018-12-22] MEDS: NovoLOG Insulin Flexpen SUBQ SCH ×4 (06:30→20:58)
--- NOTE | 2018-12-22 07:29 | NUR ---
HAND-OFF: Report given to Wendy Ceballos RN. Pt in bed, asleep, arousable to name, appears to be resting comfortably. Denies pain, no signs or symptoms of distress noted at this time.
--- NOTE | 2018-12-22 07:30 | NUR ---
NURSE NOTES: RECEIVED PATIENT FROM BENJAMIN LEMUS. PATIENT IS OBSERVED RESTING IN BED COMFORTABLY. 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 ON 2L OXYGEN VIA NC. NO SIGNS OF CARDIAC OR RESPIRATORY DISTRESS NOTED. LAMB CATHETER NOTED, PATENT AND DRAINING URINE. L UA PICC, DRESSING DRY AND INTACT. LEFT FOOT DRESSING DRY AND INTACT. CALL LIGHT WITHIN REACH. BED AT LOWEST POSITION, SIDE RAILS UP. WILL RESUME PLAN OF CARE.
[2018-12-22 08:00] VITALS: BP 140/67
[2018-12-22] MEDS: Pantoprazole Inj IVP SCH (09:21)
[2018-12-22] MEDS: Docusate 100mg cap ORAL SCH ×3 (09:22→17:29)
[2018-12-22] MEDS: Heparin 5000 units/ml inj SUBQ SCH ×2 (09:28→20:59)
--- NOTE | 2018-12-22 10:38 | Surgery Progress Note ---
Surgery Progress Note Subjective Additional Comments renal function declining exam stable afebrile, HD stable no leukocytosis Objective Last 24 Hour Vital Signs Date Time Temp Pulse Resp B/P (MAP) Pulse Ox O2 Delivery O2 Flow Rate FiO2 12/22/18 09:00 Nasal Cannula 2.0 Nasal Cannula 2.0 12/22/18 08:49 99 Nasal Cannula 2.0 28 12/22/18 08:48 95 24 99 Nasal Cannula 2.0 28 12/22/18 08:00 97.2 75 18 140/67 (91) 100 12/22/18 04:19 78 12/22/18 04:00 97.6 78 18 139/64 (89) 100 12/22/18 00:00 98.2 74 16 146/60 (88) 100 12/21/18 23:35 75 12/21/18 22:14 98.2 12/21/18 21:25 94 Nasal Cannula 2.0 28 12/21/18 21:24 106 22 94 Nasal Cannula 2.0 28 12/21/18 21:00 Nasal Cannula 4.0 12/21/18 20:00 98.2 79 20 149/57 (87) 99 12/21/18 19:02 74 12/21/18 16:00 98.1 77 18 134/61 (85) 99 12/21/18 16:00 72 12/21/18 13:35 100 Nasal Cannula 2.0 28 12/21/18 12:00 74 12/21/18 12:00 97.7 78 18 156/57 (90) 100 I&O Intake and Output 12/21/18 12/22/18 19:00 07:00 Intake Total 1499 ml 360 ml Output Total 200 ml 200 ml Balance 1299 ml 160 ml Intake Oral 60 ml IV Total 1499 ml 300 ml Output Urine Total 200 ml 200 ml Dressing: saturated Wound: other Drains: other Cardiovascular: RSR Respiratory: clear, decreased breath sounds Abdomen: soft, non-tender, present bowel sounds, non-distended Extremities: edema, tenderness, no cyanosis Laboratory Tests Test 12/22/18 04:00 White Blood Count 9.3 K/UL (4.8-10.8) Red Blood Count 3.55 M/UL (4.70-6.10) L Hemoglobin 10.0 G/DL (14.2-18.0) L Hematocrit 31.4 % (42.0-52.0) L Mean Corpuscular Volume 88 FL (80-99) Mean Corpuscular Hemoglobin 28.2 PG (27.0-31.0) Mean Corpuscular Hemoglobin Concent 31.9 G/DL (32.0-36.0) L Red Cell Distribution Width 14.4 % (11.6-14.8) Platelet Count 332 K/UL (150-450) Mean Platelet Volume 7.0 FL (6.5-10.1) Neutrophils (%) (Auto) 78.2 % (45.0-75.0) H Lymphocytes (%) (Auto) 15.9 % (20.0-45.0) L Monocytes (%) (Auto) 4.0 % (1.0-10.0) Eosinophils (%) (Auto) 1.3 % (0.0-3.0) Basophils (%) (Auto) 0.7 % (0.0-2.0) Sodium Level 145 MMOL/L (136-145) Potassium Level 4.2 MMOL/L (3.5-5.1) Chloride Level 111 MMOL/L (98-107) H Carbon Dioxide Level 23 MMOL/L (21-32) Anion Gap 12 mmol/L (5-15) Blood Urea Nitrogen 50 mg/dL (7-18) H Creatinine 4.6 MG/DL (0.55-1.30) H Estimat Glomerular Filtration Rate mL/min (>60) Glucose Level 154 MG/DL (74-106) H Uric Acid 10.7 MG/DL (2.6-7.2) H Calcium Level 8.6 MG/DL (8.5-10.1) Phosphorus Level 6.4 MG/DL (2.5-4.9) H Magnesium Level 2.3 MG/DL (1.8-2.4) Total Bilirubin 0.5 MG/DL (0.2-1.0) Aspartate Amino Transf (AST/SGOT) 15 U/L (15-37) Alanine Aminotransferase (ALT/SGPT) 13 U/L (12-78) Alkaline Phosphatase 135 U/L (46-116) H C-Reactive Protein, Quantitative 11.3 mg/dL (0.00-0.90) H Pro-B-Type Natriuretic Peptide 67982 pg/mL (0-125) H Total Protein 6.9 G/DL (6.4-8.2) Albumin 2.4 G/DL (3.4-5.0) L Globulin 4.5 g/dL Albumin/Globulin Ratio 0.5 (1.0-2.7) L Plan Problems: (1) Sepsis Assessment & Plan: 78-year-old male with sepsis, febrile, leukocytosis, bilateral foot amputations with left foot cellulitis and amputation site. Concerning for possible osteomyelitis. On IV antibiotics as per infectious disease. Leukocytosis improving. No active drainage noted from wound. Ulceration noted on lateral aspect of wound. Seems chronic overall. Noted to have a UTI. Blood cultures as below. No acute surgical intervention planned. 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 There is questionably a fragment of the fifth metatarsal stump present which if real is probably also involvement with osteomyelitis. This correlates with findings demonstrated on recent bone scan. Extensive lateral, dorsal, plantar soft tissue edema and associated ulcer. This is nonspecific, but probably indicate cellulitis given stated clinical history Podiatry input appreciated will discuss with patient and family for BKA medical clearance for surgery - currently not cleared as he is too ill Trend labs Thank you for this consultation we will follow with recommendations (2) Cellulitis of foot Assessment & Plan: Status post amputation at the mid foot. No definite appearing acute osseous destruction or periosteal reaction identified. Possible small focus of soft tissue ulceration or air at the anterior lateral aspect of the stump, clinically correlate. Findings: . There is increased blood flow to the left foot compared to the right. There is increased blood pool activity that is asymmetric indicative of cellulitis at the stump. Delayed planar images demonstrate mild focal increased activity at one of the areas probably along the lateral side of the transmetatarsal amputation. Please correlate with the location of the ulcer and consider evaluation with MRI for more specific evaluation of the anatomy involved. 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 There is questionably a fragment of the fifth metatarsal stump present which if real is probably also involvement with osteomyelitis. This correlates with findings demonstrated on recent bone scan. Extensive lateral, dorsal, plantar soft tissue edema and associated ulcer. This is nonspecific, but probably indicate cellulitis given stated clinical history Mariusz Diehl Dec 22, 2018 10:37
--- NOTE | 2018-12-22 10:47 | Diagnostic Imaging Report ---
Indication: Dyspnea Technique: One view of the chest Comparison: 12/18/2018 Findings: Less optimal inspiration currently. There is increased interstitial congestion and hazy airspace disease bilaterally. The heart is borderline enlarged. Impression: Hypoventilatory exam Increased interstitial and airspace edema, since prior study of 12/18/2018
--- NOTE | 2018-12-22 11:04 | Pulmonology Progress Note ---
Assessment/Plan Problems: (1) Sepsis (2) Cellulitis (3) Osteomyelitis (4) Bacteremia (5) UTI (urinary tract infection) (6) ATN (acute tubular necrosis) (7) Diabetes mellitus (8) History of hypertension (9) Hypertension Assessment/Plan NG tube is out iv fluids MRI reviewed,acute osteomyelitis. iv abx, BC persistently positive sliding sclale check cxr and bnp in am all reviewed NO consent for amputation needs long terms abx treatment if no amputation dvt prophylaxis Subjective ROS Limited/Unobtainable: No Interval Events: ng is out Allergies: Coded Allergies: PENICILLINS (Verified Allergy, Unknown, 12/11/18) Objective Last 24 Hour Vital Signs Date Time Temp Pulse Resp B/P (MAP) Pulse Ox O2 Delivery O2 Flow Rate FiO2 12/22/18 09:00 Nasal Cannula 2.0 Nasal Cannula 2.0 12/22/18 08:49 99 Nasal Cannula 2.0 28 12/22/18 08:48 95 24 99 Nasal Cannula 2.0 28 12/22/18 08:00 97.2 75 18 140/67 (91) 100 12/22/18 04:19 78 12/22/18 04:00 97.6 78 18 139/64 (89) 100 12/22/18 00:00 98.2 74 16 146/60 (88) 100 12/21/18 23:35 75 12/21/18 22:14 98.2 12/21/18 21:25 94 Nasal Cannula 2.0 28 12/21/18 21:24 106 22 94 Nasal Cannula 2.0 28 12/21/18 21:00 Nasal Cannula 4.0 12/21/18 20:00 98.2 79 20 149/57 (87) 99 12/21/18 19:02 74 12/21/18 16:00 98.1 77 18 134/61 (85) 99 12/21/18 16:00 72 12/21/18 13:35 100 Nasal Cannula 2.0 28 12/21/18 12:00 74 12/21/18 12:00 97.7 78 18 156/57 (90) 100 Intake and Output 12/21/18 12/22/18 19:00 07:00 Intake Total 1499 ml 360 ml Output Total 200 ml 200 ml Balance 1299 ml 160 ml Intake Oral 60 ml IV Total 1499 ml 300 ml Output Urine Total 200 ml 200 ml General Appearance: WD/WN HEENT: normocephalic, atraumatic Respiratory/Chest: chest wall non-tender, lungs clear Cardiovascular: normal peripheral pulses, normal rate Abdomen: normal bowel sounds, non distended Genitourinary: normal external genitalia Extremities: no clubbing Skin: no rash Neurologic/Psychiatric: 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-XII grossly normal Lymphatic: no neck adenopathy Laboratory Tests 12/22/18 04:00: White Blood Count 9.3, Red Blood Count 3.55L, Hemoglobin 10.0L, Hematocrit 31.4L , Mean Corpuscular Volume 88, Mean Corpuscular Hemoglobin 28.2, Mean Corpuscular Hemoglobin Concent 31.9L, Red Cell Distribution Width 14.4, Platelet Count 332, Mean Platelet Volume 7.0, Neutrophils (%) (Auto) 78.2H, Lymphocytes (%) (Auto) 15.9L, Monocytes (%) (Auto) 4.0, Eosinophils (%) (Auto) 1.3, Basophils (%) (Auto) 0.7, Sodium Level 145, Potassium Level 4.2, Chloride Level 111H, Carbon Dioxide Level 23, Anion Gap 12, Blood Urea Nitrogen 50H, Creatinine 4.6H, Estimat Glomerular Filtration Rate , Glucose Level 154H, Uric Acid 10.7H, Calcium Level 8.6, Phosphorus Level 6.4H, Magnesium Level 2.3, Total Bilirubin 0.5, Aspartate Amino Transf (AST/SGOT) 15, Alanine Aminotransferase (ALT/SGPT) 13, Alkaline Phosphatase 135H, C-Reactive Protein, Quantitative 11.3H, Pro-B-Type Natriuretic Peptide 28237R, Total Protein 6.9, Albumin 2.4L, Globulin 4.5, Albumin/Globulin Ratio 0.5L Current Medications Medications (Trade) Dose Ordered Sig/Cammy Route PRN Reason Start Time Stop Time Status Last Admin Dose Admin Acetaminophen (Tylenol) 650 mg Q4H PRN ORAL T>100.5 12/19/18 03:00 01/10/19 18:59 Albuterol/ Ipratropium (Albuterol/ Ipratropium) 3 ml Q4H PRN HHN Shortness of Breath 12/19/18 03:00 12/23/18 02:59 12/21/18 21:24 Allopurinol (Allopurinol) 300 mg DAILY ORAL 12/19/18 09:00 01/14/19 08:59 12/22/18 09:22 Chlorhexidine Gluconate (Yi-Hex 2%) 1 applic DAILY@2000 TOPIC 12/19/18 20:00 01/15/19 19:59 12/21/18 20:07 Clonidine HCl (Catapres TTS-1) 1 patch QWEEK TDERMAL 12/23/18 13:00 01/15/19 12:59 Dextrose (Dextrose 50%) 25 ml Q30M PRN IV Hypoglycemia 12/19/18 01:45 01/11/19 17:14 Dextrose (Dextrose 50%) 50 ml Q30M PRN IV Hypoglycemia 12/19/18 01:45 01/11/19 17:14 Diphenhydramine HCl (Benadryl) 25 mg Q6H PRN IVP Itching 12/19/18 02:08 01/13/19 02:07 Docusate Sodium (Colace) 100 mg THREE TIMES A DAY ORAL 12/19/18 09:00 01/11/19 12:59 12/22/18 09:22 Epoetin William (Epoetin William-EPBX(NON ESRD)) 8,000 unit FRI-FRI-FRI SUBQ 12/21/18 21:00 01/20/19 20:59 12/21/18 20:19 Heparin Sodium (Porcine) (Heparin 5000 units/ml) 5,000 units EVERY 12 HOURS SUBQ 12/19/18 09:00 01/10/19 20:59 12/22/18 09:28 Hydralazine HCl (Apresoline) 10 mg Q4H PRN IV bp over 160 syst 12/20/18 15:00 01/19/19 14:59 Insulin Aspart (NovoLOG) BEFORE MEALS AND HS SUBQ 12/19/18 06:30 01/11/19 20:59 12/21/18 12:55 Linezolid 300 ml @ 300 mls/hr Q12HR IVPB 12/19/18 09:00 12/25/18 15:59 12/22/18 09:22 Morphine Sulfate (Morphine Sulfate) 2 mg Q4H PRN IV Moderate Pain (Pain Scale 4-6) 12/19/18 12:30 12/22/18 12:29 12/22/18 09:21 Nitroglycerin (Nitro-Bid) 1 inch Q4H PRN TOPIC For High Blood Pressure 12/19/18 05:00 01/18/19 04:59 Ondansetron HCl (Zofran) 4 mg Q4H PRN IVP Nausea & Vomiting 12/19/18 02:13 01/17/19 02:12 Pantoprazole (Protonix) 40 mg DAILY IVP 12/19/18 09:00 01/18/19 08:59 12/22/18 09:21 Polyethylene Glycol (Miralax) 17 gm DAILYPRN PRN ORAL Constipation 12/19/18 02:13 01/13/19 02:12 Karrie Crawford MD Dec 22, 2018 11:04
--- NOTE | 2018-12-22 11:43 | Infectious Diseases Prog Note ---
Assessment/Plan Assessment/Plan Assessment/Plan: 78 yo male with PMHx of DM, HTN , PVP s/p B/L Mid foot amps who presented to the ED on 12/11/18 with left foot infection. 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 There is questionably a fragment of the fifth metatarsal stump present which if real is probably also involvement with osteomyelitis. Bone scan for OM left foot : acute osteomyelitis. Difficult to anatomically locate the area involved. Foot X-ray 12/11/18 - Possible small focus of soft tissue ulceration or air at the anterior lateral aspect of the stump, clinically correlate. No definite appearing acute osseous destruction or periosteal reaction identified. 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 AB Rx -12/18 Sp Vancomycin # 5 - 12/17 Sp Ertapenem # 5 - 12/13/18 S/P Amikacin #2 - Monitor CBC and Temp - Rpt Blood Cx - Surg : fup - Cadio :clearance for BKA pending medical optimization Subjective Allergies: Coded Allergies: PENICILLINS (Verified Allergy, Unknown, 12/11/18) Subjective Afebrile Objective Vital Signs Last 24 Hour Vital Signs Date Time Temp Pulse Resp B/P (MAP) Pulse Ox O2 Delivery O2 Flow Rate FiO2 12/22/18 09:00 Nasal Cannula 2.0 Nasal Cannula 2.0 12/22/18 08:49 99 Nasal Cannula 2.0 28 12/22/18 08:48 95 24 99 Nasal Cannula 2.0 28 12/22/18 08:00 97.2 75 18 140/67 (91) 100 12/22/18 07:43 72 12/22/18 04:19 78 12/22/18 04:00 97.6 78 18 139/64 (89) 100 12/22/18 00:00 98.2 74 16 146/60 (88) 100 12/21/18 23:35 75 12/21/18 22:14 98.2 12/21/18 21:25 94 Nasal Cannula 2.0 28 12/21/18 21:24 106 22 94 Nasal Cannula 2.0 28 12/21/18 21:00 Nasal Cannula 4.0 12/21/18 20:00 98.2 79 20 149/57 (87) 99 12/21/18 19:02 74 12/21/18 16:00 98.1 77 18 134/61 (85) 99 12/21/18 16:00 72 12/21/18 13:35 100 Nasal Cannula 2.0 28 12/21/18 12:00 74 12/21/18 12:00 97.7 78 18 156/57 (90) 100 Height (Feet): 5 Height (Inches): 6.00 Weight (Pounds): 198 HEENT: anicteric Respiratory/Chest: no respiratory distress Cardiovascular: regular rhythm Abdomen: no organomegaly Laboratory Tests Test 12/22/18 04:00 White Blood Count 9.3 K/UL (4.8-10.8) Red Blood Count 3.55 M/UL (4.70-6.10) L Hemoglobin 10.0 G/DL (14.2-18.0) L Hematocrit 31.4 % (42.0-52.0) L Mean Corpuscular Volume 88 FL (80-99) Mean Corpuscular Hemoglobin 28.2 PG (27.0-31.0) Mean Corpuscular Hemoglobin Concent 31.9 G/DL (32.0-36.0) L Red Cell Distribution Width 14.4 % (11.6-14.8) Platelet Count 332 K/UL (150-450) Mean Platelet Volume 7.0 FL (6.5-10.1) Neutrophils (%) (Auto) 78.2 % (45.0-75.0) H Lymphocytes (%) (Auto) 15.9 % (20.0-45.0) L Monocytes (%) (Auto) 4.0 % (1.0-10.0) Eosinophils (%) (Auto) 1.3 % (0.0-3.0) Basophils (%) (Auto) 0.7 % (0.0-2.0) Sodium Level 145 MMOL/L (136-145) Potassium Level 4.2 MMOL/L (3.5-5.1) Chloride Level 111 MMOL/L (98-107) H Carbon Dioxide Level 23 MMOL/L (21-32) Anion Gap 12 mmol/L (5-15) Blood Urea Nitrogen 50 mg/dL (7-18) H Creatinine 4.6 MG/DL (0.55-1.30) H Estimat Glomerular Filtration Rate mL/min (>60) Glucose Level 154 MG/DL (74-106) H Uric Acid 10.7 MG/DL (2.6-7.2) H Calcium Level 8.6 MG/DL (8.5-10.1) Phosphorus Level 6.4 MG/DL (2.5-4.9) H Magnesium Level 2.3 MG/DL (1.8-2.4) Total Bilirubin 0.5 MG/DL (0.2-1.0) Aspartate Amino Transf (AST/SGOT) 15 U/L (15-37) Alanine Aminotransferase (ALT/SGPT) 13 U/L (12-78) Alkaline Phosphatase 135 U/L (46-116) H C-Reactive Protein, Quantitative 11.3 mg/dL (0.00-0.90) H Pro-B-Type Natriuretic Peptide 13284 pg/mL (0-125) H Total Protein 6.9 G/DL (6.4-8.2) Albumin 2.4 G/DL (3.4-5.0) L Globulin 4.5 g/dL Albumin/Globulin Ratio 0.5 (1.0-2.7) L Current Medications Medications (Trade) Dose Ordered Sig/Cammy Route PRN Reason Start Time Stop Time Status Last Admin Dose Admin Acetaminophen (Tylenol) 650 mg Q4H PRN ORAL T>100.5 12/19/18 03:00 01/10/19 18:59 Albuterol/ Ipratropium (Albuterol/ Ipratropium) 3 ml Q4H PRN HHN Shortness of Breath 12/19/18 03:00 12/23/18 02:59 12/21/18 21:24 Allopurinol (Allopurinol) 300 mg DAILY ORAL 12/19/18 09:00 01/14/19 08:59 12/22/18 09:22 Chlorhexidine Gluconate (Yi-Hex 2%) 1 applic DAILY@2000 TOPIC 12/19/18 20:00 01/15/19 19:59 12/21/18 20:07 Clonidine HCl (Catapres TTS-1) 1 patch QWEEK TDERMAL 12/23/18 13:00 01/15/19 12:59 Dextrose (Dextrose 50%) 25 ml Q30M PRN IV Hypoglycemia 12/19/18 01:45 01/11/19 17:14 Dextrose (Dextrose 50%) 50 ml Q30M PRN IV Hypoglycemia 12/19/18 01:45 01/11/19 17:14 Diphenhydramine HCl (Benadryl) 25 mg Q6H PRN IVP Itching 12/19/18 02:08 01/13/19 02:07 Docusate Sodium (Colace) 100 mg THREE TIMES A DAY ORAL 12/19/18 09:00 01/11/19 12:59 12/22/18 09:22 Epoetin William (Epoetin William-EPBX(NON ESRD)) 8,000 unit FRI-FRI-FRI SUBQ 12/21/18 21:00 01/20/19 20:59 12/21/18 20:19 Heparin Sodium (Porcine) (Heparin 5000 units/ml) 5,000 units EVERY 12 HOURS SUBQ 12/19/18 09:00 01/10/19 20:59 12/22/18 09:28 Hydralazine HCl (Apresoline) 10 mg Q4H PRN IV bp over 160 syst 12/20/18 15:00 01/19/19 14:59 Insulin Aspart (NovoLOG) BEFORE MEALS AND HS SUBQ 12/19/18 06:30 01/11/19 20:59 12/21/18 12:55 Linezolid 300 ml @ 300 mls/hr Q12HR IVPB 12/19/18 09:00 12/25/18 15:59 12/22/18 09:22 Morphine Sulfate (Morphine Sulfate) 2 mg Q4H PRN IV Moderate Pain (Pain Scale 4-6) 12/19/18 12:30 12/22/18 12:29 12/22/18 09:21 Nitroglycerin (Nitro-Bid) 1 inch Q4H PRN TOPIC For High Blood Pressure 12/19/18 05:00 01/18/19 04:59 Ondansetron HCl (Zofran) 4 mg Q4H PRN IVP Nausea & Vomiting 12/19/18 02:13 01/17/19 02:12 Pantoprazole (Protonix) 40 mg DAILY IVP 12/19/18 09:00 01/18/19 08:59 12/22/18 09:21 Polyethylene Glycol (Miralax) 17 gm DAILYPRN PRN ORAL Constipation 12/19/18 02:13 01/13/19 02:12 Casa Martin MD Dec 22, 2018 11:43
[2018-12-22 12:00] VITALS: BP 133/61
--- NOTE | 2018-12-22 12:18 | Nephrology Progress Note ---
Assessment/Plan Problem List: (1) Renal failure (ARF), acute on chronic Assessment: Cr danial (2) Altered mental status (3) UTI (urinary tract infection) (4) Sepsis (5) Hypotension Assessment: shock Assessment Septic shock- was on pressors , now is off Diabetic nephropathy CKD Anemia s/p foot and LE amputations Plan Hydrate hold coreg and diuretics optimize cardiac and pulmonary status Avoid nephrotoxics allopurinol urine studies 2D echo Left ventricular ejection fraction estimated to be 55-60 %. Kidney ETLLO noted keep BP and BS in check Anemia daley per orders Subjective ROS Limited/Unobtainable: No Constitutional: Reports: malaise, weakness Objective Objective Last 24 Hour Vital Signs Date Time Temp Pulse Resp B/P (MAP) Pulse Ox O2 Delivery O2 Flow Rate FiO2 12/22/18 09:00 Nasal Cannula 2.0 Nasal Cannula 2.0 12/22/18 08:49 99 Nasal Cannula 2.0 28 12/22/18 08:48 95 24 99 Nasal Cannula 2.0 28 12/22/18 08:00 97.2 75 18 140/67 (91) 100 12/22/18 07:43 72 12/22/18 04:19 78 12/22/18 04:00 97.6 78 18 139/64 (89) 100 12/22/18 00:00 98.2 74 16 146/60 (88) 100 12/21/18 23:35 75 12/21/18 22:14 98.2 12/21/18 21:25 94 Nasal Cannula 2.0 28 12/21/18 21:24 106 22 94 Nasal Cannula 2.0 28 12/21/18 21:00 Nasal Cannula 4.0 12/21/18 20:00 98.2 79 20 149/57 (87) 99 12/21/18 19:02 74 12/21/18 16:00 98.1 77 18 134/61 (85) 99 12/21/18 16:00 72 12/21/18 13:35 100 Nasal Cannula 2.0 28 Intake and Output 12/21/18 12/22/18 19:00 07:00 Intake Total 1499 ml 360 ml Output Total 200 ml 200 ml Balance 1299 ml 160 ml Intake Oral 60 ml IV Total 1499 ml 300 ml Output Urine Total 200 ml 200 ml Laboratory Tests 12/22/18 04:00: White Blood Count 9.3, Red Blood Count 3.55L, Hemoglobin 10.0L, Hematocrit 31.4L , Mean Corpuscular Volume 88, Mean Corpuscular Hemoglobin 28.2, Mean Corpuscular Hemoglobin Concent 31.9L, Red Cell Distribution Width 14.4, Platelet Count 332, Mean Platelet Volume 7.0, Neutrophils (%) (Auto) 78.2H, Lymphocytes (%) (Auto) 15.9L, Monocytes (%) (Auto) 4.0, Eosinophils (%) (Auto) 1.3, Basophils (%) (Auto) 0.7, Sodium Level 145, Potassium Level 4.2, Chloride Level 111H, Carbon Dioxide Level 23, Anion Gap 12, Blood Urea Nitrogen 50H, Creatinine 4.6H, Estimat Glomerular Filtration Rate , Glucose Level 154H, Uric Acid 10.7H, Calcium Level 8.6, Phosphorus Level 6.4H, Magnesium Level 2.3, Total Bilirubin 0.5, Aspartate Amino Transf (AST/SGOT) 15, Alanine Aminotransferase (ALT/SGPT) 13, Alkaline Phosphatase 135H, C-Reactive Protein, Quantitative 11.3H, Pro-B-Type Natriuretic Peptide 35032B, Total Protein 6.9, Albumin 2.4L, Globulin 4.5, Albumin/Globulin Ratio 0.5L Height (Feet): 5 Height (Inches): 6.00 Weight (Pounds): 198 General Appearance: no apparent distress Cardiovascular: normal rate Respiratory/Chest: decreased breath sounds Abdomen: distended Objective no change Naveed Vanegas MD Dec 22, 2018 12:18
[2018-12-22] MEDS ORDERED: D5 1/2NS 1,000 ML IV SCH (12:30)
--- NOTE | 2018-12-22 12:41 | GI Progress Note ---
Assessment/Plan Problems: (1) Hypertension ICD Codes: I10 - Essential (primary) hypertension SNOMED: 41189637 (2) Renal failure (ARF), acute on chronic ICD Codes: N17.9 - Acute kidney failure, unspecified; N18.9 - Chronic kidney disease, unspecified SNOMED: 426278306 (3) Diabetes mellitus ICD Codes: E11.9 - Type 2 diabetes mellitus without complications SNOMED: 48893728 (4) Acute encephalopathy ICD Codes: G93.40 - Encephalopathy, unspecified SNOMED: 20280448, 560779645 Status: unchanged Status Narrative Discussed with Dr. Humphreys. Assessment/Plan Family refused PEG Patient pulled NGT, will not replace KUB to evaluate abdominal pain, distention Advance diet as tolerated, poor PO intake on HD fu stool ob fu H&H GI procedures if needed The patient was seen and examined at bedside and all new and available data was reviewed in the patients chart. I agree with the above findings, impression and plan. (Patient seen earlier today. Signature stamp does not reflect patient encounter time.). - Lawrence Humphreys MD Subjective Subjective abdominal pain decreased PO intake Objective Last 24 Hour Vital Signs Date Time Temp Pulse Resp B/P (MAP) Pulse Ox O2 Delivery O2 Flow Rate FiO2 12/22/18 09:00 Nasal Cannula 2.0 Nasal Cannula 2.0 12/22/18 08:49 99 Nasal Cannula 2.0 28 12/22/18 08:48 95 24 99 Nasal Cannula 2.0 28 12/22/18 08:00 97.2 75 18 140/67 (91) 100 12/22/18 07:43 72 12/22/18 04:19 78 12/22/18 04:00 97.6 78 18 139/64 (89) 100 12/22/18 00:00 98.2 74 16 146/60 (88) 100 12/21/18 23:35 75 12/21/18 22:14 98.2 12/21/18 21:25 94 Nasal Cannula 2.0 28 12/21/18 21:24 106 22 94 Nasal Cannula 2.0 28 12/21/18 21:00 Nasal Cannula 4.0 12/21/18 20:00 98.2 79 20 149/57 (87) 99 12/21/18 19:02 74 12/21/18 16:00 98.1 77 18 134/61 (85) 99 12/21/18 16:00 72 12/21/18 13:35 100 Nasal Cannula 2.0 28 Intake and Output 12/21/18 12/22/18 19:00 07:00 Intake Total 1499 ml 360 ml Output Total 200 ml 200 ml Balance 1299 ml 160 ml Intake Oral 60 ml IV Total 1499 ml 300 ml Output Urine Total 200 ml 200 ml Laboratory Tests Test 12/22/18 04:00 White Blood Count 9.3 K/UL (4.8-10.8) Red Blood Count 3.55 M/UL (4.70-6.10) L Hemoglobin 10.0 G/DL (14.2-18.0) L Hematocrit 31.4 % (42.0-52.0) L Mean Corpuscular Volume 88 FL (80-99) Mean Corpuscular Hemoglobin 28.2 PG (27.0-31.0) Mean Corpuscular Hemoglobin Concent 31.9 G/DL (32.0-36.0) L Red Cell Distribution Width 14.4 % (11.6-14.8) Platelet Count 332 K/UL (150-450) Mean Platelet Volume 7.0 FL (6.5-10.1) Neutrophils (%) (Auto) 78.2 % (45.0-75.0) H Lymphocytes (%) (Auto) 15.9 % (20.0-45.0) L Monocytes (%) (Auto) 4.0 % (1.0-10.0) Eosinophils (%) (Auto) 1.3 % (0.0-3.0) Basophils (%) (Auto) 0.7 % (0.0-2.0) Sodium Level 145 MMOL/L (136-145) Potassium Level 4.2 MMOL/L (3.5-5.1) Chloride Level 111 MMOL/L (98-107) H Carbon Dioxide Level 23 MMOL/L (21-32) Anion Gap 12 mmol/L (5-15) Blood Urea Nitrogen 50 mg/dL (7-18) H Creatinine 4.6 MG/DL (0.55-1.30) H Estimat Glomerular Filtration Rate mL/min (>60) Glucose Level 154 MG/DL (74-106) H Uric Acid 10.7 MG/DL (2.6-7.2) H Calcium Level 8.6 MG/DL (8.5-10.1) Phosphorus Level 6.4 MG/DL (2.5-4.9) H Magnesium Level 2.3 MG/DL (1.8-2.4) Total Bilirubin 0.5 MG/DL (0.2-1.0) Aspartate Amino Transf (AST/SGOT) 15 U/L (15-37) Alanine Aminotransferase (ALT/SGPT) 13 U/L (12-78) Alkaline Phosphatase 135 U/L (46-116) H C-Reactive Protein, Quantitative 11.3 mg/dL (0.00-0.90) H Pro-B-Type Natriuretic Peptide 38893 pg/mL (0-125) H Total Protein 6.9 G/DL (6.4-8.2) Albumin 2.4 G/DL (3.4-5.0) L Globulin 4.5 g/dL Albumin/Globulin Ratio 0.5 (1.0-2.7) L Height (Feet): 5 Height (Inches): 6.00 Weight (Pounds): 198 General Appearance: WD/WN, no apparent distress, alert Cardiovascular: normal rate Respiratory/Chest: normal breath sounds, no respiratory distress Abdominal Exam: normal bowel sounds, non tender, soft Extremities: non-tender Fransisca Mccarty NP Dec 22, 2018 12:41
--- NOTE | 2018-12-22 13:36 | NUR ---
*-* DISCHARGE PLANNING *-* PATIENT HAS BEEN REFERRED BACK TO: [facility] P: [phone] F: [phone]
--- NOTE | 2018-12-22 13:45 | NUR ---
*-* INSURANCE *-* UPDATED CLINICALS AND REVIEWS HAVE BEEN FAXED TO: [employer] [facility]: CHELLE P:[phone] F:[phone] (FAX ALL CLINICALS) REF# [id number]
[2018-12-22] MEDS ORDERED: DAPTOMYCIN350 MG IV (14:39)
[2018-12-22] MEDS ORDERED: NOVOLOG100 UNITS1 SUBQ (14:39)
--- NOTE | 2018-12-22 15:33 | Diagnostic Imaging Report ---
Indication: Abdominal distention Technique: Supine view of the abdomen Comparison: 12/17/2018 Findings: Previously demonstrated nasogastric tube is no longer evident. Gas-filled prominent but not frankly dilated colon is again demonstrated. Somewhat prominent gas-filled loops of bowel in the right lower quadrant could represent small bowel. Overall bowel gas volumes slightly increased from prior study The stomach is slightly distended with gas. An arterial stent is seen in the left pelvis. Surgical clips are seen in the pelvis, presumed prior prostatectomy. Impression: Gas-filled but not frankly dilated large and small bowel, overall bowel gas volumes slightly increased since previous exam.
[2018-12-22 16:00] VITALS: BP 124/67
--- NOTE | 2018-12-22 16:45 | NUR ---
Spoke to So at [facility] bed room 109. Called [facility] ambulance spanish moss picker time 1830. Spoke to Theresa Su for discharge.
--- NOTE | 2018-12-22 18:38 | NUR ---
NURSE NOTES: Benadryl 25mg given for itchiness of the back.
--- NOTE | 2018-12-22 19:21 | NUR ---
HAND-OFF: Report given to BENJAMIN Panchal.
--- NOTE | 2018-12-22 19:22 | NUR ---
NURSE NOTES: Received bedside report from Maria EugeniaRN/Wendy Rahman RN.Patient stable,sleeping after adm [facility]&Ox3-4 Cymro speaking,SR w1AVB on monitoring tech,tolerated N/C w/3 L/min well no respiratory distress,no pain at this moment,BS active in all quadrants,f/cath draining toward gravity,BS active in all quadrants,PICC line on KAREN TKO.Patient is ready to go back to [facility],waiting for [facility] to pick him up.Bed secured in a low safety position,call light within a reach will continue to monitor.
[2018-12-22 20:00] VITALS: BP 120/55
[2018-12-22] MEDS: Dyna-Hex 2% Top Sol 2oz TOPIC SCH (20:00)
[2018-12-22] MEDS ORDERED: Tubing IV Secondary IV ONE (22:14)
[2018-12-22] MEDS ORDERED: D5 1/2NS 1000ml IV ONE (22:14)
[2018-12-22] MEDS ORDERED: NS 500ML ONE (22:14)
[2018-12-22] MEDS ORDERED: Sterile Water Irrig 1000ml IRRIG ONE (22:14)
[2018-12-22] MEDS ORDERED: D5W 275ml ONE (22:14)
[2018-12-22] MEDS ORDERED: NS 275ml ONE ×2 (22:14)
--- NOTE | 2018-12-22 22:25 | NUR ---
NURSE NOTES: Report provided to [facility],Vivienne Tucker.Patient stable,V/S WNL,tolerated 2 L/min N/C well no respiratory distress at the moment of discharge noted.internet sales representative removed,cleaned and returned to Tele.All belongings were send with patient.Charge nurse aware.
--- NOTE | 2018-12-23 08:31 | Discharge Summary ---
Discharge Summary Discharge Summary _ DATE OF ADMISSION: 12/11/2018 DATE OF DISCHARGE: 12/22/2018 DISCHARGED BY: Dr. Chang REASON FOR ADMISSION: 78 years old male with past medical history of hypertension, diabetes mellitus type 2, PVD, hypercholesterolemia, diabetes , anemia, was brought from the intermediate facility with altered mental status, fever for 1 day and hypotension. Upon evaluation patient was febrile, tachycardic, tachypneic and hypoxic . Laboratory work-up revealed significant leukocytosis WBC 25.9, hemoglobin 8.8, hematocrit 27.3. Platelet count 220. Sodium 133. BUN 69, creatinine 3.5. Lactic acid 1.5. Glucose 115. Troponin negative. Pro BNP 88082. EKG revealed normal sinus rhythm, no acute ischemic changes. Stable LFT and lipase. Urinalysis +3 protein, pyuria and moderate bacteria. Chest x-ray demonstrated mild pulmonary vascular congestion. X-ray of the left foot revealed status post amputation of the mid food. No definite appearing acute osseous destruction or periosteal reaction identified. Possible small focus of soft tissue ulceration or air at the anterior lateral aspect of the stump. In emergency department patient started on fluid resuscitation, pancultured and started on empiric antibiotics. Central line was inserted for pressors. Patient started on Levophed and admitted to ICU CONSULTANTS: pulmonary Dr. Crawford ID specialist Dr. Martin GI specialist Dr. Humphreys elementary assistant teacher Dr. Vanegas surgery Dr. Diehl fire code inspector dr. Morris [facility] COURSE: Patient admitted to ICU. Patient started on IV fluids and pressors. Hemodynamic status was closely monitored with goal to keep mean arterial blood pressure above 65. Empiric antibiotics continued as per ID specialist recommendation. Patient was able to br weaned from pressors soon. Blood pressure stabilized and was closely monitored. Blood culture revealed MRSA and Strep group B. Urine culture was negative. Wound culture revealed Staph aureus and Strep group B. Sputum culture revealed Chanell. Blood culture repeated on 12/17 were negative. Echocardiogram was done to rule out vegetation and revealed preserved ejection fraction 55 to 60% with no evidence of left ventricular hypertrophy. No evidence of wall motion abnormality. No evidence of pericardial effusion. No evidence of vegetation. Right ventricular systolic pressure. Venous duplex bilateral lower extremity revealed no evidence of acute DVT. Elevated inflammatory markers noted: ESR 131 , CRP 34.3. Bone scan revealed findings concerning for acute osteomyelitis left foot. Subsequently patient undergone MRI of the left ankle and left foot, which revealed findings compatible with osteomyelitis of the cuboid, and possibly of the fourth metatarsal stump. There was questionably a fragment of the fifth metatarsal present, probably also with involvement of osteomyelitis. Extensive lateral dorsal plantar soft tissue edema and associated ulcer noted, likely indicative of cellulitis . Surgeon closely followed. 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 Also noted stenosis and severe calcification of popliteal, posterior and anterior tibial and dorsalis pedis arteries. Surgeon recommended below-knee amputation , given the fact, that patient was nonambulatory. Wound care provided as per surgeon recommendation. Internet Sales Manager seen and evaluated patient . Per fire code inspector patient had diabetic foot infection with underlying osteomyelitis to the left foot. 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 Internet Sales Manager stated, that patient would benefit from below-knee amputation, given that he was not ambulatory. Unable to obtain consent for below-knee amputation . At the same time patient will need medical optimization prior to surgical intervention . ID specialist recommended to continue antibiotics for total of 6 weeks upon discharge. Leukocytosis resolved, no fevers. Per ID specialist, septicemia was likely due to left foot infection and osteomyelitis. Manager Commercial Sales closely followed. Renal ultrasound revealed no hydronephrosis. No stones. Normal bilateral kidney echogenicity. 2.3 x 2.4 x 1.7cm anechoic right renal cyst. Renal parameters initially improved from 3.5 down to 1.6 , and then started to trend up. Patient was on IV hydration. Per elementary assistant teacher , patient had diabetic nephropathy and chronic kidney disease secondary to diabetic nephropathy. With worsening in renal failure, vancomycin was changed to Zyvox, and then subsequently to Daptomycin. Patient will need close monitoring of renal parameters at the facility. Bedside swallow evaluation revealed severe dysphagia and silent aspiration risk. NG tube was inserted, and patient started on tube feeding with tube feeding formula as per critical care registered nurse recommendation. Patient pulled out NG tube. GI consult was requested. Patient declined PEG placement. Diet started with diet texture as per speech therapist recommendations with strict aspiration /reflux precaution. Protein supplements implemented in plan of care as per critical care registered nurse recommendation. Hemoglobin and hematocrit were closely monitored with goal to keep hemoglobin above 7. Anemia work-up was consistent with anemia of chronic disease. Patient undergone transfusion of 2 units of packed red blood cells while in the hospital. Patient started on Epogen. Prior to discharge hemoglobin 10, hematocrit 31.4. Stool for occult blood was negative. GI prophylaxis provided. No indication for GI procedure at this time. Patient had evidence of congestive heart failure and acute renal failure , likely brought by sepsis. Medical management for congestive heart failure provided with the diuretics: spironolactone and Lasix and beta blockage. Volumes and cardiorenal parameters were closely monitored. Supplemental oxygen titrated to keep pulse oximetry above 92%. Bronchodilator therapy provided as needed. Patient was folloed-up with chest x-ray. DVT prophylaxis provided. Patient clinically stabilized. Hemodynamic status stable.No leukocytosis, no fevers. Patient will need total of 6 weeks of antibiotics for treatment of acute osteomyelitis. PICC line was placed . Patient was stable for discharge to intermediate facility for continuation of care. FINAL DIAGNOSIS Sepsis with septic shock Septicemia with MRSA and Strep group B , likely secondary to left foot infection Diabetic foot infection, left , with underlying acute osteomyelitis Cellulitis of left foot Renal failure, acute on chronic/acute tubular necrosis Acute encephalopathy Diabetic nephropathy Chronic kidney disease Diabetes mellitus History of hypertension Peripheral vascular disease Anemia Congestive heart failure DISCHARGE MEDICATIONS: See Medication Reconciliation list. DISCHARGE INSTRUCTIONS: Patient was discharged to the intermediate facility. Follow up with medical doctor at the facility. I have been assigned to dictate discharge summary for this account. I was not involved in the patient's management. Reema Hanna NP Dec 23, 2018 08:31
--- NOTE | 2018-12-24 01:30 | Discharge Summary ---
DATE OF ADMISSION: 12/11/2018 DATE OF DISCHARGE: 12/22/2018 NOTE: POOR AUDIO HISTORY OF PRESENT ILLNESS: This is one of several admissions to [facility] of this 78-year-old patient because of sepsis and exacerbation of renal failure very pleasant elderly . The patient developed pain, swelling, and tenderness in his left foot for 10 days prior to the present admission. He an extended care facility. He was transferred to [facility] ER and was admitted. HOSPITAL COURSE: Upon admission, the patient underwent clinical, biological, and imaging studies. Clinical assessment revealed the patient had swelling of left foot and cellulitis and osteomyelitis were suspected and multiple imaging studies took place that include x-ray, triple-phase bone scan, and MRI of the foot with poor impulse from an open wound. Orthopedic professional services consultant assist in management of this case. The patient was treated with broad-spectrum antibiotics that include vancomycin and Zosyn as defined. Orthopedic professional services consultant suggested to him foot amputation; however, the patient developed delirium the patient underwent output decline. However, respond. He was placed on initiated on vancomycin . His blood culture grew gram-positive cocci. Over the last several days, his WBC went down from 23 to normal. His fever resolved. tachycardia; however, required six weeks of IV antibiotics. Renal professional services consultant assessed the patient. . However, at the time of his discharge, his BUN and creatinine continued to worsen and the possibility that the patient . His CRP was elevated. His and Coreg. His condition improved; however, the patient developed bradycardia and Coreg will . His uric acid remained elevated, might be on allopurinol 300 mg daily because of his renal function was afebrile without evidence discharged back to the extended care facility where he will be seen in 24 hours after discharge. Ayush Chang M.D. DR: KURT JOB#: [id number] CC:
--- NOTE | 2018-12-24 16:13 | NUR ---
*-* INSURANCE *-* UPDATED CLINICALS AND REVIEWS HAVE BEEN FAXED TO: [email or web address] [facility]: CHELLE P:[phone] F:[phone] (FAX ALL CLINICALS) REF# [id number]
== END 2018-12-22 22:15 | DRG 720 ==
LOC: EDBD 13:47 → EMR 14:12 → CMPBEDREQ 14:14 → ICU 14:27 → EDBEDREQSVC 15:05 → EDBEDREQ 15:05 → EDBEDREQSVC 15:31 → EDBEDREQ 15:31 → 4E 12-14 18:10 → 2W 12-19 00:54
PROC: 02HV33Z Insertion of Infusion Device into Superior Vena Cava, Percutaneous Approach (ICD-10-PCS; principal; 2018-12-16)
PROC: 30233N1 Transfusion of Nonautologous Red Blood Cells into Peripheral Vein, Percutaneous Approach (ICD-10-PCS; 2018-12-18)
DX: A41.02 Sepsis due to Methicillin resistant Staphylococcus aureus (principal); R65.21 Severe sepsis with septic shock; N39.0 Urinary tract infection, site not specified; L03.116 Cellulitis of left lower limb; N17.9 Acute kidney failure, unspecified; I13.0 Hypertensive heart and chronic kidney disease with heart failure and stage 1 through stage 4 chronic kidney disease, or unspecified chronic kidney disease; B95.1 Streptococcus, group B, as the cause of diseases classified elsewhere; G93.40 Encephalopathy, unspecified; E11.22 Type 2 diabetes mellitus with diabetic chronic kidney disease; N18.9 Chronic kidney disease, unspecified; I73.9 Peripheral vascular disease, unspecified; E11.69 Type 2 diabetes mellitus with other specified complication; M86.172 Other acute osteomyelitis, left ankle and foot; Z79.84 Long term (current) use of oral hypoglycemic drugs; Z79.82 Long term (current) use of aspirin; D64.9 Anemia, unspecified; Z88.0 Allergy status to penicillin; Z89.432 Acquired absence of left foot; Z89.431 Acquired absence of right foot; N17.0 Acute kidney failure with tubular necrosis
CPT/HCPCS: 36415; 36569; 36600; 71045; 74018; 76770; 76937; 78315; 80048; 80053; 80061; 80150; 80202; 81003; 82140; 82248; 82270; 82306; 82550; 82553; 82607; 82728; 82746; 82803; 82962; 83036; 83540; 83550; 83605; 83615; 83690; 83735; 83880; 84100; 84443; 84484; 84550; 85007; 85025; 85044; 85610; 85651; 85730; 86140; 86710; 86850; 86900; 86901; 86920; 87040; 87070; 87081; 87086; 87181; 87205; 92610; 93005; 93306; 93926; 93971; 94640; 94664; 96361; 96365; 96367; 96375; 99291; J1815; J2405; J7620; S0077

== ENCOUNTER 2019-10-22 16:41 | Inpatient (IN) | payer MEDICAID ==
[~2019-10-22] VITALS: Ht 165.1 cm; Wt 73.0 kg
[~2019-10-22 16:41] MED LIST: ACTOS15 MG ORAL; ALENDRONAT70 MG/75 M PO; ALLOPURINOL300 M1 ORAL; ATENOLOL100 MG ORAL; ATORVASTATIN CA20 MG ORAL; CALCIUM CARBON600 M1 PO; COLACE100 MG ORAL; DAPTOMYCIN350 MG IV; DULCOLAX10 MG RC; FUROSEMIDE20 M1 ORAL; GEMFIBROZIL600 M1 PO; GLIMEPIRIDE1 MG ORAL; HYDRALAZINE HCL25 M2 PO; METOPROLOL TART50 M1 ORAL; NEURONTIN300 MG ORAL; NORVASC10 MG ORAL; NOVOLOG100 UNITS1 SUBQ; OMEPRAZOLE20 M2 ORAL; TRAMADOL HCL100 M2 ORAL
[2019-10-22] MEDS ORDERED: MELATONIN1 M1 SL (16:45)
[2019-10-22] MEDS ORDERED: XARELTO10 MG ORAL (16:45)
[2019-10-22] MEDS ORDERED: COLACE100 MG ORAL (16:45)
[2019-10-22] MEDS ORDERED: PROTONIX40 MG ORAL (16:45)
[2019-10-22] MEDS ORDERED: CRANBERRY500 M3 PO (16:45)
[2019-10-22] MEDS ORDERED: HYDROXYZINE HCL50 M1 PO (16:45)
--- NOTE | 2019-10-22 16:50 | Emergency Room Report ---
History of Present Illness General Chief Complaint: Abnormal Labs Source: Patient, Medical Record, EMS Present Illness HPI Patient is an 79-year-old male multiple medical history including diabetes who was brought in by EMS from his extended care facility for hypoglycemia. EMS was called due to shortness of breath. When blood sugar was checked it was 22. Patient was given glucagon by the extended care facility and glucose still remained low. Per EMS patient was lethargic and altered. Patient was given D10 by EMS and is now more awake and alert. Patient is alert and oriented to person and place but not to time. He does not know why he is in the hospital. He denies any pain. He denies any shortness of breath. He denies any fever or chills. Patient is a poor historian. Unclear mental baseline but per EMS patient has definitely "perked up" since he has been given the D10 Allergies: Coded Allergies: PENICILLINS (Verified Allergy, Unknown, 12/11/18) COVID-19 Screening Contact w/high risk pt: No Experienced COVID-19 symptoms?: Yes Patient History Reviewed Nursing Documentation: PMH: Agreed; PSxH: Agreed Nursing Documentation-PMH Past Medical History: No History, Except For Hx Hypertension: Yes - GERD, AV BLOCK TYPE 1, MDD Hx Diabetes: Yes Review of Systems All Other Systems: negative except mentioned in HPI Physical Exam Vital Signs Date Time Temp Pulse Resp B/P (MAP) Pulse Ox O2 Delivery O2 Flow Rate FiO2 10/22/19 16:31 97.3 20 98 Room Air Sp02 EP Interpretation: reviewed, normal General Appearance: no apparent distress, alert, non-toxic, other - GCS 14 Head: normocephalic, atraumatic Eyes: bilateral eye normal inspection, bilateral eye PERRL ENT: hearing grossly normal, normal pharynx, no angioedema, normal voice Neck: full range of motion, no meningismus Respiratory: rhonchi, other - Mildly tachypneic Cardiovascular #1: regular rate, rhythm Gastrointestinal: non tender, soft, no guarding, no rebound, overweight Rectal: deferred Musculoskeletal: other - Bilateral partial foot amputations Neurologic: head esthetician III-XII nml as tested Psychiatric: no suicidal/homicidal ideation Skin: no rash Lymphatic: no adenopathy Procedures Critical Care Time Critical Care Time Total critical care time: Approximately 80 minutes. Due to a high probability of clinically significant, life threatening deterioration, the patient required my highest level of preparedness to intervene emergently and I personally spent this critical care time directly and personally managing the patient. This critical care time included obtaining a history; examining the patient; pulse oximetry; ordering and review of studies; arranging urgent treatment with development of a management plan; evaluation of patient's response to treatment ; frequent reassessment; and, discussions with other providers.This critical care time was performed to assess and manage the high probability of imminent, life-threatening deterioration that could result in multi-organ failure. It was exclusive of separately billable procedures and treating other patients and teaching time. Please see MDM section and the rest of the note for further information on patient assessment and treatment. Medical Decision Making Diagnostic Impression: Primary Impression: Hypoglycemia Additional Impressions: Hypercarbia Metabolic acidosis Anemia Chronic renal failure Pneumonia CHF (congestive heart failure) Pleural effusion Hyponatremia ER Course Patient presents for hypoglycemia and shortness of breath. Patient has been pancultured. Patient's chest x-ray consistent with pneumonia. Patient's lactate is normal. COVID-19 PCR negative. Urinalysis demonstrates no evidence for UTI. Patient has chronic renal insufficiency but is not on dialysis. He is anemic with a hemoglobin of 6.8. 1 unit of packed red blood cells has been ordered. Patient started on broad-spectrum antibiotics vancomycin as well as cefepime. Patient's repeat glucose was normal but at 6:40 PM he is again hypoglycemic with a glucose of 46. I have ordered for D50 as well as a D10 1/2 NS drip at 50 cc/h. Patient's initial blood gas demonstrated pH of 7.1 with PCO2 of 58. Patient was placed on BiPAP. Repeat blood gas demonstrates mildly improving pH as well as PCO2. 1 order of sodium bicarb is also been ordered. Patient is awake and alert and conversive. Patient on metformin as well as glimepiride. Hypoglycemia likely due to the glimepiride and superimposed pneumonia. Patient is awake and talking therefore I do not believe that he needs to be intubated at this time. Case discussed in detail with the patient' s primary care physician at 6:50 PM. Laboratory Tests Test 10/22/19 16:45 10/22/19 16:50 10/22/19 17:00 10/22/19 17:08 White Blood Count 5.4 K/UL (4.8-10.8) Red Blood Count 2.28 M/UL (4.70-6.10) L Hemoglobin 6.8 G/DL (14.2-18.0) *L Hematocrit 23.3 % (42.0-52.0) L Mean Corpuscular Volume 102 FL (80-99) H Mean Corpuscular Hemoglobin 30.0 PG (27.0-31.0) Mean Corpuscular Hemoglobin Concent 29.3 G/DL (32.0-36.0) L Red Cell Distribution Width 15.9 % (11.6-14.8) H Platelet Count 228 K/UL (150-450) Mean Platelet Volume 6.9 FL (6.5-10.1) Neutrophils (%) (Auto) % (45.0-75.0) Lymphocytes (%) (Auto) % (20.0-45.0) Monocytes (%) (Auto) % (1.0-10.0) Eosinophils (%) (Auto) % (0.0-3.0) Basophils (%) (Auto) % (0.0-2.0) Neutrophils % (Manual) Pending Lymphocytes % (Manual) Pending Platelet Estimate Pending Platelet Morphology Pending Prothrombin Time 10.3 SEC (9.30-11.50) Prothrombin Time INR 0.9 (0.9-1.1) Activated Partial Thromboplast Time 29 SEC (23-33) Sodium Level 129 MMOL/L (136-145) L Potassium Level 5.4 MMOL/L (3.5-5.1) H Chloride Level 100 MMOL/L (98-107) Carbon Dioxide Level 19 MMOL/L (21-32) L Anion Gap 10 mmol/L (5-15) Blood Urea Nitrogen 81 mg/dL (7-18) H Creatinine 4.4 MG/DL (0.55-1.30) H Estimated Glomerular Filtration Rate 13.0 mL/min (>60) Glucose Level 125 MG/DL (74-106) H Lactic Acid Level 0.70 mmol/L (0.4-2.0) Calcium Level 8.5 MG/DL (8.5-10.1) Magnesium Level 2.3 MG/DL (1.8-2.4) Total Bilirubin 0.1 MG/DL (0.2-1.0) L Aspartate Amino Transferase (AST) 32 U/L (15-37) Alanine Aminotransferase (ALT) 24 U/L (12-78) Alkaline Phosphatase 158 U/L (46-116) H Total Creatine Kinase 122 U/L (26-308) Troponin I 0.001 ng/mL (0.000-0.056) Pro-B-Type Natriuretic Peptide 21421 pg/mL (0-125) H Total Protein 6.2 G/DL (6.4-8.2) L Albumin 2.7 G/DL (3.4-5.0) L Globulin 3.5 g/dL Albumin/Globulin Ratio 0.8 (1.0-2.7) L Arterial Blood pH 7.106 (7.350-7.450) 7.138 (7.350-7.450) Arterial Blood Partial Pressure CO2 56.0 mmHg (35.0-45.0) *H 49.9 mmHg (35.0-45.0) H Arterial Blood Partial Pressure O2 75.3 mmHg (75.0-100.0) 190.3 mmHg (75.0-100.0) H Arterial Blood HCO3 17.2 mmol/L (22.0-26.0) *L 16.5 mmol/L (22.0-26.0) *L Arterial Blood Oxygen Saturation 93.5 % (95-100) L 99.0 % (95-100) Arterial Blood Base Excess -11.6 (-2-2) *L -11.5 (-2-2) *L Kristian Test Positive Positive Urine Color Yellow Urine Appearance Clear Urine pH 5 (4.5-8.0) Urine Specific [place] 1.020 (1.005-1.035) Urine Protein 3+ (NEGATIVE) H Urine Glucose (UA) Negative (NEGATIVE) Urine Ketones Negative (NEGATIVE) Urine Blood Negative (NEGATIVE) Urine Nitrite Negative (NEGATIVE) Urine Bilirubin Negative (NEGATIVE) Urine Urobilinogen Normal MG/DL (0.0-1.0) Urine Leukocyte Esterase Negative (NEGATIVE) Urine RBC 0-2 /HPF (0 - 0) H Urine WBC 0 /HPF (0 - 0) Urine Squamous Epithelial Cells Occasional /LPF Urine Amorphous Sediment Moderate /LPF (NONE) H Urine Bacteria Moderate /HPF (NONE) H Test 7/31/20 18:42 POC Whole Blood Glucose 43 MG/DL (74-106) L Microbiology Date/Time Source Procedure Growth Status 10/22/19 16:45 Nasopharynx SARS-CoV-2 RdRp Gene Assay - Final Complete EKG Diagnostic Results EKG Time: 17:02 EP Interpretation: Mary Lou Rutherford MD Rate: normal Rhythm: NSR ST Segments: no acute changes Other Impression First-degree AV block with inferolateral T wave inversions ASA given to the pt in ED: No Rhythm Strip Diag. Results Rhythm Strip Time: 16:50 EP Interpretation: yes - Mary Lou Rutherford MD Rate: 63 bpm Rhythm: NSR, no PVC's, no ectopy Chest X-Ray Diagnostic Results Chest X-Ray Diagnostic Results : Chest X-Ray Ordered: Yes # of Views/Limited/Complete: 1 View Indication: Shortness of Breath EP Interpretation: Yes Interpretation: no pneumothorax, other - Bibasilar infiltrates and small bilateral pleural effusions Impression: Other - Pneumonia Electronically Signed by: Mary Lou Rutherford MD Last Vital Signs Date Time Temp Pulse Resp B/P (MAP) Pulse Ox O2 Delivery O2 Flow Rate FiO2 10/22/19 16:31 97.3 20 98 Room Air Disposition: ADMITTED INPATIENT Condition: Critical Physician Consult: Dr. Charlene MD at 1850pm Additional Instructions: Please note that this report is being documented using [employer] technology. This can lead to erroneous entry secondary to incorrect interpretation by the dictating instrument. Mary Lou Rutherford M.D. Oct 22, 2019 16:50
[2019-10-22 17:00] VITALS: BP 121/84
[2019-10-22 17:23] LABS: APPEARANCE,URINE CLEAR; BILIRUBIN, URINE NEGATIVE (NEGATIVE); GLUCOSE, URINE (UA) NEGATIVE (NEGATIVE); KETONES,URINE NEGATIVE (NEGATIVE); LEUKOCYTE ESTERASE ,URINE NEGATIVE (NEGATIVE); NITRITE,URINE NEGATIVE (NEGATIVE); PH,URINE 5 (4.5-8.0); PROTEIN,URINE 3+ (NEGATIVE); UROBILINOGEN,URINE NORMAL MG/DL (0.0-1.0)
[2019-10-22 17:26] LABS: HEMATOCRIT 23.3 % (42.0-52.0); MEAN CORPUSCULAR VOLUME 102 FL (80-99); PLATELET COUNT 228 K/UL (150-450); RED BLOOD COUNT 2.28 M/UL (4.70-6.10); RED CELL DISTRIBUTION WIDTH 15.9 % (11.6-14.8); WHITE BLOOD COUNT 5.4 K/UL (4.8-10.8)
[2019-10-22 17:28] LABS: INR 0.9 (0.9-1.1)
[2019-10-22 17:29] LABS: HEMOGLOBIN 6.8 G/DL (14.2-18.0)
[2019-10-22] MEDS ORDERED: Vancomycin 1 GM in NS 275 ML IVPB ONE (17:30)
[2019-10-22] MEDS ORDERED: Cefepime HCl 2 GM in D5W 55 ML IVPB ONE (17:30)
[2019-10-22 17:31] LABS: ANION GAP 10 mmol/L (5-15); BLOOD UREA NITROGEN 81 mg/dL (7-18); CALCIUM 8.5 MG/DL (8.5-10.1); CARBON DIOXIDE 19 MMOL/L (21-32); CHLORIDE 100 MMOL/L (98-107); CREATININE 4.4 MG/DL (0.55-1.30); POTASSIUM 5.4 MMOL/L (3.5-5.1); SODIUM 129 MMOL/L (136-145)
[2019-10-22 17:37] LABS: ALANINE AMINOTRANSFERASE 24 U/L (12-78); ALBUMIN 2.7 G/DL (3.4-5.0); ALBUMIN/GLOBULIN RATIO 0.8 (1.0-2.7); ALKALINE PHOSPHATASE 158 U/L (46-116); ASPARTATE AMINO TRANSFERASE 32 U/L (15-37); BILIRUBIN,TOTAL 0.1 MG/DL (0.2-1.0); CREATINE KINASE 122 U/L (26-308)
[2019-10-22 17:42] LABS: COLOR,URINE YELLOW
--- NOTE | 2019-10-22 17:52 | Diagnostic Imaging Report ---
EXAM: XR Chest, 1 View CLINICAL HISTORY: AMS TECHNIQUE: Frontal view of the chest. COMPARISON: Chest radiograph On 12/22/2018 FINDINGS: Lungs: Prominent lung markings and hazy opacities in right greater than left lungs may represent artifact versus pulmonary vasculature congestion and edema versus infectious/inflammatory process. Small bilateral pleural effusions. Bibasilar atelectasis versus pneumonia. No pneumothorax. Heart: Stable mild enlargement of the cardiac silhouette. Mediastinum: Unremarkable. Bones/joints: Unremarkable. Vasculature: Atherosclerotic calcifications of the aorta. IMPRESSION: 1. Small bilateral pleural effusions. Bibasilar atelectasis versus pneumonia. 2. Prominent lung markings and hazy opacities in right greater than left lungs may represent artifact versus pulmonary vasculature congestion and edema versus infectious/inflammatory process.
[2019-10-22] MEDS ORDERED: Dextrose 10%/.45 SOD CHL 1,000 ML IV SCH (18:45)
[2019-10-22] MEDS ORDERED: Sodium Bicarbonate 50ml Carp IV ONE (18:45)
[2019-10-22] MEDS ORDERED: D5 1/2NS 1,000 ML IV SCH ×2 (18:45→19:30)
[2019-10-22 19:00] VITALS: BP 148/56
--- NOTE | 2019-10-22 19:10 | Diagnostic Imaging Report ---
EXAM: CT Head Without Intravenous Contrast CLINICAL HISTORY: AMS TECHNIQUE: Axial computed tomography images of the head/brain without intravenous contrast. CTDI is 53.4 mGy and DLP is 885.2 mGy-cm. One or more of the following dose reduction techniques were used: automated exposure control, adjustment of the mA and/or kV according to patient size, use of iterative reconstruction technique. COMPARISON: None FINDINGS: Brain: No acute infarct or hemorrhage identified. No extra-axial fluid collection. No mass effect or midline shift. Scattered areas of hypoattenuation in the supratentorial white matter likely represent chronic small vessel ischemic changes. Remote lacunar infarct in the right basal ganglia. Ventricles and sulci: Prominence of the ventricles and sulci is likely secondary to cerebral volume loss. Bones: Normal. No bony lesion or fracture. Subcutaneous tissues: Normal. Sinuses: Mild mucosal thickening in the maxillary sinuses with polyps versus mucous retention cysts. Mild mucosal thickening in the sphenoid sinuses. Mastoid air cells: Normal. Orbits: Left lens implants. Other: Atherosclerotic calcifications in the intracranial vasculature. IMPRESSION: 1. No acute intracranial abnormality. If there is persistent concern for acute ischemia, consider further evaluation with MRI. 2. Chronic small vessel ischemic changes and cerebral volume loss. Small remote lacunar infarct in the right basal ganglia.
[2019-10-22] MEDS: NovoLOG Insulin Flexpen SUBQ SCH (22:00)
[2019-10-22] MEDS ORDERED: D5NS 1,000 ML IV SCH (23:00)
[2019-10-22] MEDS ORDERED: CHOLECALCIFEROL PO (23:13)
[2019-10-22] MEDS ORDERED: MELATONIN 3 MG1 EAC1 PO (23:13)
[2019-10-22] MEDS ORDERED: SENNA LAXATIVE8.6 MG PO (23:13)
[2019-10-22] MEDS ORDERED: Sennosides 8.6mg tab ORAL PRN (23:15)
[2019-10-23] VITALS: BP 167/61
[2019-10-23] MEDS ORDERED: Piperacillin/Tazobactam 2.25 GM in D5W 55 ML IVPB SCH ×2
[2019-10-23] MEDS: D5NS 1,000 ML IV SCH ×2 (02:22→21:08)
[2019-10-23 04:00] VITALS: BP 134/83
[2019-10-23] MEDS: NovoLOG Insulin Flexpen SUBQ SCH (05:48)
[2019-10-23 06:10] LABS: BASOPHILS % (AUTO) 0.5 % (0.0-2.0); EOSINOPHILS % (AUTO) 0.8 % (0.0-3.0); HEMATOCRIT 27.9 % (42.0-52.0); HEMOGLOBIN 8.6 G/DL (14.2-18.0); LYMPHOCYTES % (AUTO) 16.8 % (20.0-45.0); MEAN CORPUSCULAR VOLUME 99 FL (80-99); MONOCYTES % (AUTO) 5.9 % (1.0-10.0); PLATELET COUNT 221 K/UL (150-450); RED BLOOD COUNT 2.81 M/UL (4.70-6.10); WHITE BLOOD COUNT 5.3 K/UL (4.8-10.8)
[2019-10-23 06:25] LABS: % IRON SATURATION 18 % (15-50); IRON 47 ug/dL (50-175); TOTAL IRON BINDING CAPACITY 267 ug/dL (250-450)
[2019-10-23 06:25] LABS: APPEARANCE,URINE CLEAR; BILIRUBIN, URINE NEGATIVE (NEGATIVE); GLUCOSE, URINE (UA) NEGATIVE (NEGATIVE); KETONES,URINE 1+ (NEGATIVE); LEUKOCYTE ESTERASE ,URINE 1+ (NEGATIVE); NITRITE,URINE NEGATIVE (NEGATIVE); PH,URINE 5 (4.5-8.0); PROTEIN,URINE 3+ (NEGATIVE); UROBILINOGEN,URINE NORMAL MG/DL (0.0-1.0)
[2019-10-23 06:26] LABS: COLOR,URINE YELLOW
[2019-10-23] MEDS ORDERED: NovoLOG Insulin Flexpen SUBQ SCH ×2 (06:30)
[2019-10-23 06:32] LABS: GAMMA GLUTAMYL TRANSPEPTIDASE 45 U/L (5-85); PHOSPHORUS 7.9 MG/DL (2.5-4.9)
[2019-10-23 06:50] LABS: ALANINE AMINOTRANSFERASE 27 U/L (12-78); ALBUMIN 2.5 G/DL (3.4-5.0); ALBUMIN/GLOBULIN RATIO 0.7 (1.0-2.7); ALKALINE PHOSPHATASE 126 U/L (46-116); ANION GAP 12 mmol/L (5-15); ASPARTATE AMINO TRANSFERASE 34 U/L (15-37); BILIRUBIN,TOTAL 0.2 MG/DL (0.2-1.0); BLOOD UREA NITROGEN 82 mg/dL (7-18); CALCIUM 8.6 MG/DL (8.5-10.1); CARBON DIOXIDE 19 MMOL/L (21-32); CHLORIDE 101 MMOL/L (98-107); CREATININE 4.3 MG/DL (0.55-1.30); FERRITIN 28 NG/ML (8-388); POTASSIUM 5.7 MMOL/L (3.5-5.1); SODIUM 131 MMOL/L (136-145)
[2019-10-23 08:00] VITALS: BP 138/55
[2019-10-23] MEDS: Nephrovite tab (Rena-Vite) ORAL SCH (08:10)
[2019-10-23] MEDS: Xarelto 10mg tab ORAL SCH (08:11)
[2019-10-23] MEDS: Pantoprazole Inj IVP SCH ×2 (08:59→21:08)
[2019-10-23] MEDS ORDERED: Spironolactone 25mg tab ORAL SCH (09:00)
[2019-10-23] MEDS ORDERED: Docusate 100mg cap ORAL SCH (09:00)
[2019-10-23] MEDS ORDERED: Vitamin D 1000 IU Tab ORAL SCH (09:00)
[2019-10-23] MEDS ORDERED: Sodium Bicarbonate 50ml Carp IV SCH (10:00)
[2019-10-23] MEDS ORDERED: Sodium Polystyrene Sulfonate 15gm Powder ORAL SCH (10:00)
[2019-10-23] MEDS ORDERED: Metoclopramide 10mg/2ml Inj IVP SCH (11:30)
[2019-10-23 12:00] VITALS: BP 128/64
--- NOTE | 2019-10-23 12:09 | Consultation ---
Consult Note Consult Note I am asked to evaluate the patient at the request of Dr. Chang renal failure and hyperkalemia. Patient seen in room 238 Discussed with RN Examined Data reviewed , [place] speaker Patient is an 79-year-old male multiple medical history including diabetes who was brought in by EMS from his extended care facility for hypoglycemia. EMS was called due to shortness of breath. When blood sugar was checked it was 22. Patient was given glucagon by the extended care facility and glucose still remained low. Per EMS patient was lethargic and altered. Patient was given D10 by EMS and is now more awake and alert. Patient is alert and oriented to person and place but not to time. He does not know why he is in the hospital. He denies any pain. He denies any shortness of breath. He denies any fever or chills. Patient is a poor historian. Unclear mental baseline but per EMS patient has definitely "perked up" since he has been given the D10 Allergies: PENICILLINS (Verified Allergy, Unknown, 12/11/18) COVID-19 Screening Contact w/high risk pt: No Experienced COVID-19 symptoms?: Yes Past Medical History: No History, Except For Hx Hypertension: Yes - GERD, AV BLOCK TYPE 1, MDD Hx Diabetes: Yes Vital Signs Date Time Temp Pulse Resp B/P (MAP) Pulse Ox O2 Delivery O2 Flow Rate FiO2 10/22/19 16:31 97.3 20 98 Room Air Gen: Older man, laying in bed on BiPAP, NAD Pulm: BL chest rise on BiPAP Abd: Obese, soft, NTND Ext: No c/c/e, 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 . Assessment/Plan 79-year-old male is admitted for hypoglycemia Patient has renal failure which appears to be acute on chronic Hyperkalemia Hyponatremia CHF, pleural effusion, pneumonia Anemia Metabolic acidosis Plan: Patient already transfused 1 unit for severe anemia Will initiate Epogen 10,000 units subcutaneously 1 dose of IV iron Venofer 200 g IV Kayexalate for hyperkalemia as needed 2D echocardiogram ordered Kidney ultrasound ordered Avoid nephrotoxic's Monitor renal parameters Will hold insulin and hypoglycemic agents until hypoglycemia is reasonably resolved Patient had one previous admission here at [facility]. I spent an additional 36 minutes on review of medical records including prior hospital records,consult notes, progress notes, procedures ,imaging labs, hemodynamics, and other clinical documentation. Over 35 min Naveed Vanegas MD Oct 23, 2019 12:09
--- NOTE | 2019-10-23 12:53 | Diagnostic Imaging Report ---
EXAM: US Abdomen Complete CLINICAL HISTORY: ABN LABS TECHNIQUE: Real-time ultrasound of the abdomen with image documentation. COMPARISON: None FINDINGS: Liver: Liver measures 14.8 cm. No intrahepatic bile duct dilation. Gallbladder: Small stone in the gallbladder. No significant gallbladder wall thickening or pericholecystic fluid. Negative sonographic Bianchi's sign. Common bile duct: Normal common bile duct measuring 4.5 mm. No stones. No dilation. Pancreas: Pancreas is not visualized due to overlying bowel gas. Kidneys: Right kidney measures 9.1 cm in length. No hydronephrosis or stone. Left kidney not visualized due to patient's body habitus. Spleen: Spleen measures 9.4 cm. No focal lesion. Aorta: Visualized portions of the aorta are grossly unremarkable. The mid and distal portions are obscured by bowel gas. Inferior vena cava: Unremarkable. Free fluid: No ascites. Tubes, lines and devices: Lyles catheter in a decompressed bladder. IMPRESSION: Small stone in the gallbladder. No significant gallbladder wall thickening or pericholecystic fluid. Negative sonographic Bianchi's sign.
[2019-10-23] MEDS ORDERED: Iron Sucrose 200 MG in NS 110 ML IV ONE ×2 (14:00→18:30)
[2019-10-23] MEDS: Docusate 100mg cap ORAL SCH ×2 (14:25→18:00)
[2019-10-23] MEDS ORDERED: LORazepam Inj 2mg/ml 1ml IM SCH (15:15)
[2019-10-23 16:00] VITALS: BP 150/78
[2019-10-23 20:00] VITALS: BP 140/61
[2019-10-24] VITALS: BP 153/72
[2019-10-24 04:00] VITALS: BP 153/72
[2019-10-24 06:16] LABS: BASOPHILS % (AUTO) 0.5 % (0.0-2.0); EOSINOPHILS % (AUTO) 0.7 % (0.0-3.0); HEMATOCRIT 27.9 % (42.0-52.0); HEMOGLOBIN 8.4 G/DL (14.2-18.0); LYMPHOCYTES % (AUTO) 17.4 % (20.0-45.0); MEAN CORPUSCULAR VOLUME 100 FL (80-99); MONOCYTES % (AUTO) 6.1 % (1.0-10.0); NEUTROPHILS % (AUTO) 75.4 % (45.0-75.0); PLATELET COUNT 271 K/UL (150-450); RED BLOOD COUNT 2.79 M/UL (4.70-6.10); RED CELL DISTRIBUTION WIDTH 15.3 % (11.6-14.8); WHITE BLOOD COUNT 7.2 K/UL (4.8-10.8)
[2019-10-24 06:53] LABS: CHOLESTEROL 148 MG/DL (< 200); GAMMA GLUTAMYL TRANSPEPTIDASE 56 U/L (5-85); HDL CHOLESTEROL 50 MG/DL (40-60); TRIGLYCERIDES 128 MG/DL (30-150)
[2019-10-24 08:00] VITALS: BP 147/72
[2019-10-24 08:06] LABS: ALANINE AMINOTRANSFERASE 28 U/L (12-78); ALBUMIN 2.9 G/DL (3.4-5.0); ALBUMIN/GLOBULIN RATIO 0.9 (1.0-2.7); ALKALINE PHOSPHATASE 129 U/L (46-116); ANION GAP 16 mmol/L (5-15); ASPARTATE AMINO TRANSFERASE 35 U/L (15-37); BILIRUBIN,TOTAL 0.2 MG/DL (0.2-1.0); BLOOD UREA NITROGEN 82 mg/dL (7-18); CALCIUM 8.9 MG/DL (8.5-10.1); CARBON DIOXIDE 18 MMOL/L (21-32); CHLORIDE 103 MMOL/L (98-107); CREATININE 4.3 MG/DL (0.55-1.30); POTASSIUM 5.4 MMOL/L (3.5-5.1); SODIUM 137 MMOL/L (136-145)
[2019-10-24] MEDS: Xarelto 10mg tab ORAL SCH (09:00)
[2019-10-24] MEDS: Nephrovite tab (Rena-Vite) ORAL SCH (09:00)
[2019-10-24] MEDS: Docusate 100mg cap ORAL SCH ×3 (09:00→18:00)
[2019-10-24] MEDS: Pantoprazole Inj IVP SCH ×2 (09:09→21:12)
[2019-10-24] MEDS ORDERED: Sodium Polystyrene Sulfonate 15gm Powder ORAL SCH (09:15)
[2019-10-24] MEDS ORDERED: Vancomycin 1gm/D5W 275ml IVPB ONE ×2 (10:00)
--- NOTE | 2019-10-24 10:24 | Diagnostic Imaging Report ---
EXAM: XR Chest, 2 Views CLINICAL HISTORY: DYSPNEA TECHNIQUE: Frontal and lateral views of the chest. COMPARISON: Chest x-rays dated 10/22/19 FINDINGS: Lungs: Prominent lung markings and haziness, right greater left, which may be related to pulmonary vascular congestion versus pneumonitis. Subsegmental atelectasis versus infiltrate in the medial left lung base. Pleural space: Small layering right pleural effusion. The previously noted small left pleural effusion is not as evident. Heart: Unremarkable. No cardiomegaly. Mediastinum: Unremarkable. Bones/joints: Unremarkable. Vasculature: Atherosclerotic calcifications are noted within the aortic arch. IMPRESSION: 1. Small layering right pleural effusion, not significantly changed. The previously noted small left pleural effusion is not as evident. 2. Prominent lung markings and haziness, right greater left, which may be related to pulmonary vascular congestion versus pneumonitis. This is not significantly changed. 3. Subsegmental atelectasis versus infiltrate in the medial left lung base, also not significantly changed.
--- NOTE | 2019-10-24 10:25 | Consultation ---
History of Present Illness General Date patient seen: Oct 24, 2019 Time patient seen: 09:15 Chief Complaint: Abnormal Labs Reason for Consultation: Respiratory failure Present Illness HPI 79yo M w/ PMH of DM who was brought in from SNF for hypoglycemia to 22 and SOB, now on BiPAP, for which ID is consulted. Unable to obtain history from pt as altered on BiPAP Per RNs, pt combative, trying to get out of bed No fevers Allergies: Coded Allergies: PENICILLINS (Verified Allergy, Unknown, 12/11/18) Medication History Scheduled Allopurinol* (Allopurinol*), 300 MG ORAL DAILY, (Reported) Atenolol* (Tenormin*), 100 MG ORAL DAILY, (Reported) Atorvastatin Calcium* (Atorvastatin Calcium*), 10 MG ORAL BEDTIME, (Reported) Docusate Sodium* (Colace*), 100 MG ORAL DAILY, (Reported) Insulin Aspart (Novolog Flexpen), 0 UNITS SUBQ BEFORE MEALS AND HS Pantoprazole* (Protonix*), 40 MG ORAL DAILY, (Reported) Pioglitazone Hcl* (Actos*), 15 MG ORAL DAILY, (Reported) Rivaroxaban (Xarelto*), 20 MG ORAL DAILY, (Reported) [Cholecalciferol], 125 MCG PO DAILY, (Reported) Scheduled PRN Melatonin (Melatonin), 1 MG SL BEDTIME PRN for Insomnia, (Reported) Melatonin/Pyridoxine HCl (B6) (Melatonin 3 mg Tablet), 1 EACH PO HS PRN for Insomnia, (Reported) Sennosides (Senna Laxative), 8.6 MG PO HS PRN for Constipation, (Reported) Miscellaneous Medications Hydroxyzine Hcl (Hydroxyzine Hcl), 50 MG PO, (Reported) Discontinued Medications Cranberry Fruit (Cranberry), 500 MG PO, (Reported) Discontinued Reason: MD discontinued med Gabapentin (Neurontin), 300 MG ORAL THREE TIMES A DAY, (Reported) Discontinued Reason: MD discontinued med Gemfibrozil (Gemfibrozil), 600 MG PO BID, (Reported) Discontinued Reason: MD discontinued med Glimepiride* (Glimepiride*), 1 MG ORAL BEFORE BREAKFAST, (Reported) Discontinued Reason: MD discontinued med Patient History Healthcare decision maker N Resuscitation status Advanced Directive on File Review of Systems ROS Narrative Unable to obtain 2/2 patient condition Physical Exam Physical Exam Narrative Gen: Older man, laying in bed on BiPAP, NAD Pulm: BL chest rise on BiPAP Abd: Obese, soft, NTND Ext: No c/c/e, 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 Last 24 Hour Vital Signs Date Time Temp Pulse Resp B/P (MAP) Pulse Ox O2 Delivery O2 Flow Rate FiO2 10/24/19 07:30 77 39 99 30 10/24/19 04:00 98.2 77 25 153/72 (99) 100 10/24/19 04:00 Bi-pap 10/24/19 04:00 30 10/24/19 03:31 74 10/24/19 02:46 Bi-pap 10/24/19 02:31 69 24 99 30 10/24/19 01:00 75 25 99 30 10/24/19 00:00 72 10/24/19 00:00 98.1 73 25 153/72 (99) 99 10/24/19 00:00 Bi-pap 10/23/19 23:30 73 24 98 30 10/23/19 21:05 70 25 99 30 10/23/19 20:18 74 25 100 30 10/23/19 20:00 98.1 77 16 140/61 (87) 99 10/23/19 20:00 75 10/23/19 20:00 30 10/23/19 20:00 Bi-pap 10/23/19 19:57 100 Nasal Cannula 2.0 28 10/23/19 16:00 70 10/23/19 16:00 Bi-pap 10/23/19 16:00 30 10/23/19 16:00 97.3 71 16 150/78 (102) 96 10/23/19 15:00 98 10/23/19 13:00 98 10/23/19 12:00 Bi-pap 10/23/19 12:00 96.8 67 13 128/64 (85) 100 10/23/19 12:00 30 10/23/19 11:40 66 10/23/19 10:30 63 99 Intake and Output 10/23/19 10/24/19 19:00 07:00 Intake Total 500 ml Output Total 300 ml 350 ml Balance -300 ml 150 ml Intake IV Total 500 ml Output Urine Total 300 ml 350 ml # Bowel Movements 4 Laboratory Tests Test 10/23/19 11:51 10/23/19 12:28 10/23/19 17:38 10/23/19 22:00 POC Whole Blood Glucose 61 MG/DL (74-106) L 84 MG/DL (74-106) Arterial Blood pH 7.247 (7.350-7.450) 7.232 (7.350-7.450) Arterial Blood Partial Pressure CO2 43.4 mmHg (35.0-45.0) 47.3 mmHg (35.0-45.0) H Arterial Blood Partial Pressure O2 62.1 mmHg (75.0-100.0) L 112.6 mmHg (75.0-100.0) H Arterial Blood HCO3 18.5 mmol/L (22.0-26.0) L 19.5 mmol/L (22.0-26.0) L Arterial Blood Oxygen Saturation 90.7 % (95-100) L 97.3 % (95-100) Arterial Blood Base Excess -8.3 (-2-2) L -7.6 (-2-2) L Kristian Test Positive Positive Test 10/24/19 03:17 White Blood Count 7.2 K/UL (4.8-10.8) Red Blood Count 2.79 M/UL (4.70-6.10) L Hemoglobin 8.4 G/DL (14.2-18.0) L Hematocrit 27.9 % (42.0-52.0) L Mean Corpuscular Volume 100 FL (80-99) H Mean Corpuscular Hemoglobin 30.1 PG (27.0-31.0) Mean Corpuscular Hemoglobin Concent 30.0 G/DL (32.0-36.0) L Red Cell Distribution Width 15.3 % (11.6-14.8) H Platelet Count 271 K/UL (150-450) Mean Platelet Volume 6.5 FL (6.5-10.1) Neutrophils (%) (Auto) 75.4 % (45.0-75.0) H Lymphocytes (%) (Auto) 17.4 % (20.0-45.0) L Monocytes (%) (Auto) 6.1 % (1.0-10.0) Eosinophils (%) (Auto) 0.7 % (0.0-3.0) Basophils (%) (Auto) 0.5 % (0.0-2.0) Sodium Level 137 MMOL/L (136-145) Potassium Level 5.4 MMOL/L (3.5-5.1) H Chloride Level 103 MMOL/L (98-107) Carbon Dioxide Level 18 MMOL/L (21-32) L Anion Gap 16 mmol/L (5-15) H Blood Urea Nitrogen 82 mg/dL (7-18) H Creatinine 4.3 MG/DL (0.55-1.30) H Estimat Glomerular Filtration Rate 13.3 mL/min (>60) Glucose Level 120 MG/DL (74-106) H Hemoglobin A1c 6.3 % (4.3-6.0) H Uric Acid 3.9 MG/DL (2.6-7.2) Calcium Level 8.9 MG/DL (8.5-10.1) Total Bilirubin 0.2 MG/DL (0.2-1.0) Gamma Glutamyl Transpeptidase 56 U/L (5-85) Aspartate Amino Transf (AST/SGOT) 35 U/L (15-37) Alanine Aminotransferase (ALT/SGPT) 28 U/L (12-78) Alkaline Phosphatase 129 U/L (46-116) H Pro-B-Type Natriuretic Peptide 59964 pg/mL (0-125) H Total Protein 6.0 G/DL (6.4-8.2) L Albumin 2.9 G/DL (3.4-5.0) L Globulin 3.1 g/dL Albumin/Globulin Ratio 0.9 (1.0-2.7) L Triglycerides Level 128 MG/DL (30-150) Cholesterol Level 148 MG/DL (< 200) LDL Cholesterol 92 mg/dL (<100) HDL Cholesterol 50 MG/DL (40-60) Cholesterol/HDL Ratio 3.0 (3.3-4.4) L Thyroid Stimulating Hormone (TSH) 10.242 uiU/mL (0.358-3.740) Random Vancomycin Level 8.4 ug/mL Height (Feet): 5 Height (Inches): 8.00 Weight (Pounds): 165 Medications Current Medications Medications (Trade) Dose Ordered Sig/Cammy Route PRN Reason Start Time Stop Time Status Last Admin Dose Admin Acetaminophen (Tylenol) 650 mg Q6H PRN ORAL Pain Scale (3-5) 10/24/19 07:00 11/23/19 06:59 Allopurinol (allopurinoL) 300 mg DAILY ORAL 10/23/19 09:00 11/22/19 08:59 Atorvastatin Calcium (Lipitor) 10 mg BEDTIME ORAL 10/23/19 21:00 01/21/20 20:59 10/23/19 21:07 Dextrose (Dextrose 50%) 25 ml Q30M PRN IV Hypoglycemia 10/22/19 21:45 01/20/20 21:44 Dextrose (Dextrose 50%) 50 ml Q30M PRN IV Hypoglycemia 10/22/19 21:45 01/20/20 21:44 10/23/19 05:14 Dextrose/Sodium Chloride 1,000 ml @ 50 mls/hr Q20H IV 10/23/19 01:00 11/22/19 00:59 10/23/19 21:08 Docusate Sodium (Colace) 100 mg TID ORAL 10/23/19 13:00 11/22/19 08:59 10/23/19 14:25 Epoetin William (Epoetin William-EPBX(NON ESRD)) 10,000 unit SUBQ 10/25/19 21:00 01/23/20 20:59 Gabapentin (Neurontin) 100 mg THREE TIMES A DAY ORAL 10/23/19 09:00 11/22/19 08:59 10/23/19 14:25 Pantoprazole (Protonix) 40 mg EVERY 12 HOURS IVP 10/23/19 09:00 11/22/19 08:59 10/24/19 09:09 Rivaroxaban (Xarelto) 20 mg DAILY ORAL 10/23/19 09:00 01/21/20 08:59 Sennosides (Senokot) 8.6 mg HSPRN PRN ORAL Constipation 10/22/19 23:15 11/21/19 23:14 Sevelamer Carbonate (Renvela) 800 mg THREE TIMES A DAY ORAL 10/23/19 13:00 01/21/20 12:59 10/23/19 14:25 Sodium Polystyrene Sulfonate (Kayexalate) 45 gm ONCE ORAL 10/24/19 09:15 10/24/19 10:30 Vancomycin HCl (Vanco pharmacy to dose) 1 ea DAILY PRN MISC Per rx protocol 10/22/19 22:15 11/21/19 22:14 Vancomycin HCl 1 gm/Dextrose 275 ml @ 183.708 mls/hr ONCE ONCE IVPB 10/24/19 10:00 10/24/19 11:29 Vitamin B Complex/ Vit C/Folic Acid (Nephrovite) 1 tab DAILY ORAL 10/23/19 09:00 11/22/19 08:59 Assessment/Plan Assessment/Plan: 79yo M from [facility] who p/w hypoglycemia and resp failure: Acute hypoxic respiratory failure, on BiPAP Rapid COVID neg x1 R/o COVID given abnormal CXR, from [facility] Pneumonia on CXR 10/21 CXR: 1. Small bilateral pleural effusions. Bibasilar atelectasis versus pneumonia. 2. Prominent lung markings and hazy opacities in right greater than left lungs may represent artifact versus pulmonary vasculature congestion and edema versus infectious/inflammatory process. No leukocytosis Anemia to 6.8, improved UA neg, UCx neg R/o bacteremia 10/21 BCx NTD Plan: Start CTX 2g IV daily for pneumonia Cont vancomycin IV #2 R/o COVID with PCR test COVID isolation, d/w RN Obtain resp cx if able F/u BCx, UCx Trend resp status Monitor CBC, CMP D/w RN Thank you for this consult. [facility] will continue to follow. Mceknna Diallo M.D. Oct 24, 2019 10:25
--- NOTE | 2019-10-24 10:49 | Consultation ---
Reema Hanna SUGAR PRESSER 10/24/19 1049: History of Present Illness General Date patient seen: Oct 24, 2019 Time patient seen: 09:00 Chief Complaint: resp failure Referring physician: dr Chang Reason for Consultation: resp failure Present Illness HPI 79 years old male, [facility], with past medical history of diabetes mellitus, HTN, CHF, chronic renal insufficiency , GERD, MDD, was sent for evaluation due to hypoglycemia ,altered level of consciousness and shortness of breath. In SNG patient received glucagon , but remained hypoglycemic. Patient was lethargic and altered. Patient received IV dextrose by paramedics and became more awake and alert. In ED CT of the head revealed no acute intracranial abnormality. Chronic small vessel ischemic changes and cerebral volume loss. Small remote lacunar infarct in the right basal ganglia. Laboratory work-up revealed hemoglobin 6.8 ,hematocrit 23.3, platelet counts 228 ,no leukocytosis. Chemistry showed glucose 43. Sodium 129, potassium 5.4. BUN 81, creatinine 4.4. Lactic acid 0.7. Troponin was negative. pro BNP 00235. EKG revealed sinus rhythm with first- degree AV block, and inferior lateral T wave inversion Stable LFT , albumin 2.7. Urinalysis revealed +3 protein, moderate bacteria ,no pyuria. Chest x-ray demonstrated small bilateral pleural effusion. Bibasilar atelectasis versus pneumonia. ABG initially revealed pH 7.1, PCO2 58, bicarbonate 16. Patient was placed on the BiPAP. Repeated ABG revealed mild improvement of pH , bicarbonate 14. PCO2 down to normal. Sodium bicarb was given Patient was pancultured and started on empiric antibiotics. Patient started on dextrose drip. Patient subsequently admitted to [facility] for further management. Pulmonary consult was requested to assist in management of this patient. Allergies: Coded Allergies: PENICILLINS (Verified Allergy, Unknown, 12/11/18) Medication History Scheduled Allopurinol* (Allopurinol*), 300 MG ORAL DAILY, (Reported) Atenolol* (Tenormin*), 100 MG ORAL DAILY, (Reported) Atorvastatin Calcium* (Atorvastatin Calcium*), 10 MG ORAL BEDTIME, (Reported) Docusate Sodium* (Colace*), 100 MG ORAL DAILY, (Reported) Insulin Aspart (Novolog Flexpen), 0 UNITS SUBQ BEFORE MEALS AND HS Pantoprazole* (Protonix*), 40 MG ORAL DAILY, (Reported) Pioglitazone Hcl* (Actos*), 15 MG ORAL DAILY, (Reported) Rivaroxaban (Xarelto*), 20 MG ORAL DAILY, (Reported) [Cholecalciferol], 125 MCG PO DAILY, (Reported) Scheduled PRN Melatonin (Melatonin), 1 MG SL BEDTIME PRN for Insomnia, (Reported) Melatonin/Pyridoxine HCl (B6) (Melatonin 3 mg Tablet), 1 EACH PO HS PRN for Insomnia, (Reported) Sennosides (Senna Laxative), 8.6 MG PO HS PRN for Constipation, (Reported) Miscellaneous Medications Hydroxyzine Hcl (Hydroxyzine Hcl), 50 MG PO, (Reported) Discontinued Medications Cranberry Fruit (Cranberry), 500 MG PO, (Reported) Discontinued Reason: MD discontinued med Gabapentin (Neurontin), 300 MG ORAL THREE TIMES A DAY, (Reported) Discontinued Reason: MD discontinued med Gemfibrozil (Gemfibrozil), 600 MG PO BID, (Reported) Discontinued Reason: MD discontinued med Glimepiride* (Glimepiride*), 1 MG ORAL BEFORE BREAKFAST, (Reported) Discontinued Reason: MD discontinued med Patient History Healthcare decision maker N Resuscitation status Advanced Directive on File Full code Past Medical/Surgical History Past Medical/Surgical History: (1) Chronic renal failure (2) CHF (congestive heart failure) (3) Diabetes mellitus (4) Hypertension (5) Anemia Review of Systems ROS Narrative patietn unable to provide ROS due to ALOC Physical Exam General Appearance: no apparent distress, other - Chinese spekaing confused male, Lines, tubes and drains: peripheral HEENT: normocephalic, atraumatic, anicteric, mucous membranes moist, other - BiPAP mask on Respiratory/Chest: other - few scattered rhonchi Cardiovascular/Chest: normal rate, regular rhythm Abdomen: normal bowel sounds, non tender, soft Extremities: other - partially amputated BL foot Skin Exam: warm/dry Neurologic: abnormal gait, alert, other - orientyed to self Musculoskeletal: atrophy - BLE Last 24 Hour Vital Signs Date Time Temp Pulse Resp B/P (MAP) Pulse Ox O2 Delivery O2 Flow Rate FiO2 10/24/19 07:30 77 39 99 30 10/24/19 04:00 98.2 77 25 153/72 (99) 100 10/24/19 04:00 Bi-pap 10/24/19 04:00 30 10/24/19 03:31 74 10/24/19 02:46 Bi-pap 10/24/19 02:31 69 24 99 30 10/24/19 01:00 75 25 99 30 10/24/19 00:00 72 10/24/19 00:00 98.1 73 25 153/72 (99) 99 10/24/19 00:00 Bi-pap 10/23/19 23:30 73 24 98 30 10/23/19 21:05 70 25 99 30 10/23/19 20:18 74 25 100 30 10/23/19 20:00 98.1 77 16 140/61 (87) 99 10/23/19 20:00 75 10/23/19 20:00 30 10/23/19 20:00 Bi-pap 10/23/19 19:57 100 Nasal Cannula 2.0 28 10/23/19 16:00 70 10/23/19 16:00 Bi-pap 10/23/19 16:00 30 10/23/19 16:00 97.3 71 16 150/78 (102) 96 10/23/19 15:00 98 10/23/19 13:00 98 10/23/19 12:00 Bi-pap 10/23/19 12:00 96.8 67 13 128/64 (85) 100 10/23/19 12:00 30 10/23/19 11:40 66 10/23/19 10:30 63 99 Intake and Output 10/23/19 10/24/19 19:00 07:00 Intake Total 500 ml Output Total 300 ml 350 ml Balance -300 ml 150 ml Intake IV Total 500 ml Output Urine Total 300 ml 350 ml # Bowel Movements 4 Laboratory Tests Test 10/23/19 11:51 10/23/19 12:28 10/23/19 17:38 10/23/19 22:00 POC Whole Blood Glucose 61 MG/DL (74-106) L 84 MG/DL (74-106) Arterial Blood pH 7.247 (7.350-7.450) 7.232 (7.350-7.450) Arterial Blood Partial Pressure CO2 43.4 mmHg (35.0-45.0) 47.3 mmHg (35.0-45.0) H Arterial Blood Partial Pressure O2 62.1 mmHg (75.0-100.0) L 112.6 mmHg (75.0-100.0) H Arterial Blood HCO3 18.5 mmol/L (22.0-26.0) L 19.5 mmol/L (22.0-26.0) L Arterial Blood Oxygen Saturation 90.7 % (95-100) L 97.3 % (95-100) Arterial Blood Base Excess -8.3 (-2-2) L -7.6 (-2-2) L Kristian Test Positive Positive Test 10/24/19 03:17 White Blood Count 7.2 K/UL (4.8-10.8) Red Blood Count 2.79 M/UL (4.70-6.10) L Hemoglobin 8.4 G/DL (14.2-18.0) L Hematocrit 27.9 % (42.0-52.0) L Mean Corpuscular Volume 100 FL (80-99) H Mean Corpuscular Hemoglobin 30.1 PG (27.0-31.0) Mean Corpuscular Hemoglobin Concent 30.0 G/DL (32.0-36.0) L Red Cell Distribution Width 15.3 % (11.6-14.8) H Platelet Count 271 K/UL (150-450) Mean Platelet Volume 6.5 FL (6.5-10.1) Neutrophils (%) (Auto) 75.4 % (45.0-75.0) H Lymphocytes (%) (Auto) 17.4 % (20.0-45.0) L Monocytes (%) (Auto) 6.1 % (1.0-10.0) Eosinophils (%) (Auto) 0.7 % (0.0-3.0) Basophils (%) (Auto) 0.5 % (0.0-2.0) Sodium Level 137 MMOL/L (136-145) Potassium Level 5.4 MMOL/L (3.5-5.1) H Chloride Level 103 MMOL/L (98-107) Carbon Dioxide Level 18 MMOL/L (21-32) L Anion Gap 16 mmol/L (5-15) H Blood Urea Nitrogen 82 mg/dL (7-18) H Creatinine 4.3 MG/DL (0.55-1.30) H Estimat Glomerular Filtration Rate 13.3 mL/min (>60) Glucose Level 120 MG/DL (74-106) H Hemoglobin A1c 6.3 % (4.3-6.0) H Uric Acid 3.9 MG/DL (2.6-7.2) Calcium Level 8.9 MG/DL (8.5-10.1) Total Bilirubin 0.2 MG/DL (0.2-1.0) Gamma Glutamyl Transpeptidase 56 U/L (5-85) Aspartate Amino Transf (AST/SGOT) 35 U/L (15-37) Alanine Aminotransferase (ALT/SGPT) 28 U/L (12-78) Alkaline Phosphatase 129 U/L (46-116) H Pro-B-Type Natriuretic Peptide 34237 pg/mL (0-125) H Total Protein 6.0 G/DL (6.4-8.2) L Albumin 2.9 G/DL (3.4-5.0) L Globulin 3.1 g/dL Albumin/Globulin Ratio 0.9 (1.0-2.7) L Triglycerides Level 128 MG/DL (30-150) Cholesterol Level 148 MG/DL (< 200) LDL Cholesterol 92 mg/dL (<100) HDL Cholesterol 50 MG/DL (40-60) Cholesterol/HDL Ratio 3.0 (3.3-4.4) L Thyroid Stimulating Hormone (TSH) 10.242 uiU/mL (0.358-3.740) Random Vancomycin Level 8.4 ug/mL Height (Feet): 5 Height (Inches): 8.00 Weight (Pounds): 165 Medications Current Medications Medications (Trade) Dose Ordered Sig/Cammy Route PRN Reason Start Time Stop Time Status Last Admin Dose Admin Acetaminophen (Tylenol) 650 mg Q6H PRN ORAL Pain Scale (3-5) 10/24/19 07:00 11/23/19 06:59 Allopurinol (allopurinoL) 300 mg DAILY ORAL 10/23/19 09:00 11/22/19 08:59 Atorvastatin Calcium (Lipitor) 10 mg BEDTIME ORAL 10/23/19 21:00 01/21/20 20:59 10/23/19 21:07 Dextrose (Dextrose 50%) 25 ml Q30M PRN IV Hypoglycemia 10/22/19 21:45 01/20/20 21:44 Dextrose (Dextrose 50%) 50 ml Q30M PRN IV Hypoglycemia 10/22/19 21:45 01/20/20 21:44 10/23/19 05:14 Dextrose/Sodium Chloride 1,000 ml @ 50 mls/hr Q20H IV 10/23/19 01:00 11/22/19 00:59 10/23/19 21:08 Docusate Sodium (Colace) 100 mg TID ORAL 10/23/19 13:00 11/22/19 08:59 10/23/19 14:25 Epoetin William (Epoetin William-EPBX(NON ESRD)) 10,000 unit FRI-FRI-FRI SUBQ 10/25/19 21:00 01/23/20 20:59 Gabapentin (Neurontin) 100 mg THREE TIMES A DAY ORAL 10/23/19 09:00 11/22/19 08:59 10/23/19 14:25 Pantoprazole (Protonix) 40 mg EVERY 12 HOURS IVP 10/23/19 09:00 11/22/19 08:59 10/24/19 09:09 Rivaroxaban (Xarelto) 20 mg DAILY ORAL 10/23/19 09:00 01/21/20 08:59 Sennosides (Senokot) 8.6 mg HSPRN PRN ORAL Constipation 10/22/19 23:15 11/21/19 23:14 Sevelamer Carbonate (Renvela) 800 mg THREE TIMES A DAY ORAL 10/23/19 13:00 01/21/20 12:59 10/23/19 14:25 Sodium Polystyrene Sulfonate (Kayexalate) 45 gm ONCE ORAL 10/24/19 09:15 10/24/19 10:30 Vancomycin HCl ([facility] pharmacy to dose) 1 ea DAILY PRN MISC Per rx protocol 10/22/19 22:15 11/21/19 22:14 Vancomycin HCl 1 gm/Dextrose 275 ml @ 183.708 mls/hr ONCE ONCE IVPB 10/24/19 10:00 10/24/19 11:29 Vitamin B Complex/ Vit C/Folic Acid (Nephrovite) 1 tab DAILY ORAL 10/23/19 09:00 11/22/19 08:59 Assessment/Plan Assessment/Plan: ASSESSMENT Acute hypoxemic hypercapnic respiratory failure requiring BiPAP Acute metabolic encephalopathy likely due to hypoglycemia Diabetes mellitus with initial hypoglycemia Probably pneumonia Acute kidney injury on chronic kidney disease Severe anemia requiring blood transfusion Metabolic acidosis Electrolyte imbalance :hyponatremia, hyperkalemia HTN PLAN OF CARE [facility] BiPAP 02/25 titrate FiO2 to keep sat > 90% ABG in am pulm toilet 10/21 rapid COVID NGT CXR in am empiric abx as per ID recs BCX 10/21 NGTD UCX NGT SCX if able ECHO with pEF 55-60% Venous Duplex BLE on chronic a/c with Xarelto ?unclear reason monitor volumes gentle IV dextrose HgA1c -6.1 hold oral antiglycemic SSI prn will recommend to change to sensitive AMS was most likely due to episode of hypoglycemia CT head NGT for acute ICP renal US avoid nephrotoxic s/p Kayexalate and sodium bicarb Na corrected, still hyper K, and low bicarb fup with nephro recommendation monitor HH with goal to keep Hgb above 7 stool OB anemia w/up s/p 1 dose of Venofer now on EPO as per nephro rec GI prophayxlis supportive care thanks for a consult! case discussed and evaluated by supervising physician Leoncio Galan MD 10/24/192043: History of Present Illness General Chief Complaint: resp failure Present Illness Allergies: Coded Allergies: PENICILLINS (Verified Allergy, Unknown, 12/11/18) Medication History Scheduled Allopurinol* (Allopurinol*), 300 MG ORAL DAILY, (Reported) Atenolol* (Tenormin*), 100 MG ORAL DAILY, (Reported) Atorvastatin Calcium* (Atorvastatin Calcium*), 10 MG ORAL BEDTIME, (Reported) Docusate Sodium* (Colace*), 100 MG ORAL DAILY, (Reported) Insulin Aspart (Novolog Flexpen), 0 UNITS SUBQ BEFORE MEALS AND HS Pantoprazole* (Protonix*), 40 MG ORAL DAILY, (Reported) Pioglitazone Hcl* (Actos*), 15 MG ORAL DAILY, (Reported) Rivaroxaban (Xarelto*), 20 MG ORAL DAILY, (Reported) [Cholecalciferol], 125 MCG PO DAILY, (Reported) Scheduled PRN Melatonin (Melatonin), 1 MG SL BEDTIME PRN for Insomnia, (Reported) Melatonin/Pyridoxine HCl (B6) (Melatonin 3 mg Tablet), 1 EACH PO HS PRN for Insomnia, (Reported) Sennosides (Senna Laxative), 8.6 MG PO HS PRN for Constipation, (Reported) Miscellaneous Medications Hydroxyzine Hcl (Hydroxyzine Hcl), 50 MG PO, (Reported) Discontinued Medications Cranberry Fruit (Cranberry), 500 MG PO, (Reported) Discontinued Reason: discontinued med Gabapentin (Neurontin), 300 MG ORAL THREE TIMES A DAY, (Reported) Discontinued Reason: discontinued med Gemfibrozil (Gemfibrozil), 600 MG PO BID, (Reported) Discontinued Reason: MD discontinued med Glimepiride* (Glimepiride*), 1 MG ORAL BEFORE BREAKFAST, (Reported) Discontinued Reason: MD discontinued med Assessment/Plan Assessment/Plan: Metabolic acidosis, can support breathing BiPAP if needed but need to correct underlying metabolic disturbance with noted renal failure. Reema Hanna NP Oct 24, 2019 10:49 Leoncio Galan MD Oct 24, 2019 20:44
[2019-10-24] MEDS ORDERED: Haloperidol 5mg/ml Inj IM PRN (11:30)
[2019-10-24 12:00] VITALS: BP 140/71
--- NOTE | 2019-10-24 12:22 | Consultation ---
History of Present Illness General Chief Complaint: Abnormal Labs Referring physician: dr Chang Reason for Consultation: resp failure Present Illness Allergies: Coded Allergies: PENICILLINS (Verified Allergy, Unknown, 12/11/18) Medication History Scheduled Allopurinol* (Allopurinol*), 300 MG ORAL DAILY, (Reported) Atenolol* (Tenormin*), 100 MG ORAL DAILY, (Reported) Atorvastatin Calcium* (Atorvastatin Calcium*), 10 MG ORAL BEDTIME, (Reported) Docusate Sodium* (Colace*), 100 MG ORAL DAILY, (Reported) Insulin Aspart (Novolog Flexpen), 0 UNITS SUBQ BEFORE MEALS AND HS Pantoprazole* (Protonix*), 40 MG ORAL DAILY, (Reported) Pioglitazone Hcl* (Actos*), 15 MG ORAL DAILY, (Reported) Rivaroxaban (Xarelto*), 20 MG ORAL DAILY, (Reported) [Cholecalciferol], 125 MCG PO DAILY, (Reported) Scheduled PRN Melatonin (Melatonin), 1 MG SL BEDTIME PRN for Insomnia, (Reported) Melatonin/Pyridoxine HCl (B6) (Melatonin 3 mg Tablet), 1 EACH PO HS PRN for Insomnia, (Reported) Sennosides (Senna Laxative), 8.6 MG PO HS PRN for Constipation, (Reported) Miscellaneous Medications Hydroxyzine Hcl (Hydroxyzine Hcl), 50 MG PO, (Reported) Discontinued Medications Cranberry Fruit (Cranberry), 500 MG PO, (Reported) Discontinued Reason: MD discontinued med Gabapentin (Neurontin), 300 MG ORAL THREE TIMES A DAY, (Reported) Discontinued Reason: discontinued med Gemfibrozil (Gemfibrozil), 600 MG PO BID, (Reported) Discontinued Reason: MD discontinued med Glimepiride* (Glimepiride*), 1 MG ORAL BEFORE BREAKFAST, (Reported) Discontinued Reason: MD discontinued med Patient History Healthcare decision maker N Resuscitation status Advanced Directive on File Physical Exam Last 24 Hour Vital Signs Date Time Temp Pulse Resp B/P (MAP) Pulse Ox O2 Delivery O2 Flow Rate FiO2 10/24/19 08:00 30 10/24/19 08:00 98.2 75 21 147/72 (97) 100 10/24/19 08:00 Bi-pap 10/24/19 07:40 76 10/24/19 07:30 77 39 99 30 10/24/19 04:00 98.2 77 25 153/72 (99) 100 10/24/19 04:00 Bi-pap 10/24/19 04:00 30 10/24/19 03:31 74 10/24/19 02:46 Bi-pap 10/24/19 02:31 69 24 99 30 10/24/19 01:00 75 25 99 30 10/24/19 00:00 72 10/24/19 00:00 98.1 73 25 153/72 (99) 99 10/24/19 00:00 Bi-pap 10/23/19 23:30 73 24 98 30 10/23/19 21:05 70 25 99 30 10/23/19 20:18 74 25 100 30 10/23/19 20:00 98.1 77 16 140/61 (87) 99 10/23/19 20:00 75 10/23/19 20:00 30 10/23/19 20:00 Bi-pap 10/23/19 19:57 100 Nasal Cannula 2.0 28 10/23/19 16:00 70 10/23/19 16:00 Bi-pap 10/23/19 16:00 30 10/23/19 16:00 97.3 71 16 150/78 (102) 96 10/23/19 15:00 98 10/23/19 13:00 98 Intake and Output 10/23/19 10/24/19 19:00 07:00 Intake Total 500 ml Output Total 300 ml 350 ml Balance -300 ml 150 ml Intake IV Total 500 ml Output Urine Total 300 ml 350 ml # Bowel Movements 4 Laboratory Tests Test 10/23/19 12:28 10/23/19 17:38 10/23/19 22:00 10/24/19 03:17 POC Whole Blood Glucose 84 MG/DL (74-106) Arterial Blood pH 7.247 (7.350-7.450) 7.232 (7.350-7.450) Arterial Blood Partial Pressure CO2 43.4 mmHg (35.0-45.0) 47.3 mmHg (35.0-45.0) H Arterial Blood Partial Pressure O2 62.1 mmHg (75.0-100.0) L 112.6 mmHg (75.0-100.0) H Arterial Blood HCO3 18.5 mmol/L (22.0-26.0) L 19.5 mmol/L (22.0-26.0) L Arterial Blood Oxygen Saturation 90.7 % (95-100) L 97.3 % (95-100) Arterial Blood Base Excess -8.3 (-2-2) L -7.6 (-2-2) L Kristian Test Positive Positive White Blood Count 7.2 K/UL (4.8-10.8) Red Blood Count 2.79 M/UL (4.70-6.10) L Hemoglobin 8.4 G/DL (14.2-18.0) L Hematocrit 27.9 % (42.0-52.0) L Mean Corpuscular Volume 100 FL (80-99) H Mean Corpuscular Hemoglobin 30.1 PG (27.0-31.0) Mean Corpuscular Hemoglobin Concent 30.0 G/DL (32.0-36.0) L Red Cell Distribution Width 15.3 % (11.6-14.8) H Platelet Count 271 K/UL (150-450) Mean Platelet Volume 6.5 FL (6.5-10.1) Neutrophils (%) (Auto) 75.4 % (45.0-75.0) H Lymphocytes (%) (Auto) 17.4 % (20.0-45.0) L Monocytes (%) (Auto) 6.1 % (1.0-10.0) Eosinophils (%) (Auto) 0.7 % (0.0-3.0) Basophils (%) (Auto) 0.5 % (0.0-2.0) Sodium Level 137 MMOL/L (136-145) Potassium Level 5.4 MMOL/L (3.5-5.1) H Chloride Level 103 MMOL/L (98-107) Carbon Dioxide Level 18 MMOL/L (21-32) L Anion Gap 16 mmol/L (5-15) H Blood Urea Nitrogen 82 mg/dL (7-18) H Creatinine 4.3 MG/DL (0.55-1.30) H Estimat Glomerular Filtration Rate 13.3 mL/min (>60) Glucose Level 120 MG/DL (74-106) H Hemoglobin A1c 6.3 % (4.3-6.0) H Uric Acid 3.9 MG/DL (2.6-7.2) Calcium Level 8.9 MG/DL (8.5-10.1) Phosphorus Level 7.7 MG/DL (2.5-4.9) H Total Bilirubin 0.2 MG/DL (0.2-1.0) Gamma Glutamyl Transpeptidase 56 U/L (5-85) Aspartate Amino Transf (AST/SGOT) 35 U/L (15-37) Alanine Aminotransferase (ALT/SGPT) 28 U/L (12-78) Alkaline Phosphatase 129 U/L (46-116) H Pro-B-Type Natriuretic Peptide 46515 pg/mL (0-125) H Total Protein 6.0 G/DL (6.4-8.2) L Albumin 2.9 G/DL (3.4-5.0) L Globulin 3.1 g/dL Albumin/Globulin Ratio 0.9 (1.0-2.7) L Triglycerides Level 128 MG/DL (30-150) Cholesterol Level 148 MG/DL (< 200) LDL Cholesterol 92 mg/dL (<100) HDL Cholesterol 50 MG/DL (40-60) Cholesterol/HDL Ratio 3.0 (3.3-4.4) L Thyroid Stimulating Hormone (TSH) 10.242 uiU/mL (0.358-3.740) Random Vancomycin Level 8.4 ug/mL Height (Feet): 5 Height (Inches): 8.00 Weight (Pounds): 165 Medications Current Medications Medications (Trade) Dose Ordered Sig/Cammy Route PRN Reason Start Time Stop Time Status Last Admin Dose Admin Acetaminophen (Tylenol) 650 mg Q6H PRN ORAL Pain Scale (3-5) 10/24/19 07:00 11/23/19 06:59 Allopurinol (allopurinoL) 300 mg DAILY ORAL 10/23/19 09:00 11/22/19 08:59 Atorvastatin Calcium (Lipitor) 10 mg BEDTIME ORAL 10/23/19 21:00 01/21/20 20:59 10/23/19 21:07 Ceftriaxone Sodium 2 gm/ Dextrose 55 ml @ 110 mls/hr Q24H IVPB 10/24/19 12:00 10/31/19 11:59 Dextrose (Dextrose 50%) 25 ml Q30M PRN IV Hypoglycemia 10/22/19 21:45 01/20/20 21:44 Dextrose (Dextrose 50%) 50 ml Q30M PRN IV Hypoglycemia 10/22/19 21:45 01/20/20 21:44 10/23/19 05:14 Dextrose/Sodium Chloride 1,000 ml @ 50 mls/hr Q20H IV 10/23/19 01:00 11/22/19 00:59 10/23/19 21:08 Docusate Sodium (Colace) 100 mg TID ORAL 10/23/19 13:00 11/22/19 08:59 10/23/19 14:25 Epoetin William (Epoetin William-EPBX(NON ESRD)) 10,000 unit FRI-FRI-FRI SUBQ 10/25/19 21:00 01/23/20 20:59 Gabapentin (Neurontin) 100 mg THREE TIMES A DAY ORAL 10/23/19 09:00 11/22/19 08:59 10/23/19 14:25 Haloperidol Lactate (Haldol) 5 mg Q6H PRN IM Agitation 10/24/19 11:30 12/08/19 11:29 10/24/19 11:54 Pantoprazole (Protonix) 40 mg EVERY 12 HOURS IVP 10/23/19 09:00 11/22/19 08:59 10/24/19 09:09 Rivaroxaban (Xarelto) 20 mg DAILY ORAL 10/23/19 09:00 01/21/20 08:59 Sennosides (Senokot) 8.6 mg HSPRN PRN ORAL Constipation 10/22/19 23:15 11/21/19 23:14 Sevelamer Carbonate (Renvela) 800 mg THREE TIMES A DAY ORAL 10/23/19 13:00 01/21/20 12:59 10/23/19 14:25 [facility] 1 ea DAILY PRN MISC Per rx protocol 10/22/19 22:15 11/21/19 22:14 Vitamin B Complex/ Vit C/Folic Acid (Nephrovite) 1 tab DAILY ORAL 10/23/19 09:00 11/22/19 08:59 Assessment/Plan Assessment/Plan: HEMatology Consultation REQ : Mercy Chang RFC: Anemia evaluation DOS: 10/24/[address] Chang, IDENTIFICATION: 79-year-old male well known to me from multiple admissions at [facility] over past few years, with history of left lower extremity skin hyperpigmentation and pain , history of leukocytosis, hypertension, diabetes mellitus, peripheral vascular disease, osteoporosis and bilateral metatarsal amputee. At this time, presents to the hospital with generalized weakness, HYPOgluyemia, noted to have elevated BUN and creatinine of 4.3 and noted to have anemia. Hematology service was consulted for further evaluation and treatment. In addition, patient admitted for jaxon/elev bun. Also with a elevated k+. PAST MEDICAL HISTORY: Hypertension, diabetes, peripheral vascular disease, osteoporosis, dyslipidemia, glaucoma, stasis ulceration. PAST SURGICAL HISTORY: None noted. ALLERGIES: No known drug allergies. MEDICATIONS: Tylenol, alendronate, Actos, Tramadol, and vitamin C. REVIEW OF SYSTEMS: Gen: No fever, chills, nausea, vomiting HEENT: no pepper, ear ache, visual changes BREASTS: no lumps, pain, discharge PULM: no cough, sputum or sob CV: no chest pain, tightness, or palpitations GI: no nausea, no vomiting : no dysuria, frequency, urgency MSK: no joint swelling or muscle swelling, trauma, back pain NEURO. Denies dizziness, fainting, changes in vision. No dysuria PSYCH: No nervousness stress or depression is noted MUSCULOSKELETAL: Lower bilateral amputee. Physical Exam: VITAL SIGNS: Reviewed. GENERAL: Not in acute distress. PULMONARY: Decreased breath sounds. Some crackles noted Right side. CARDIOVASCULAR: Regular rate. No S3 or S4. ABDOMEN: Soft, nontender, nondistended. EXTREMITIES: 1+ edema. No cyanosis, swelling, or edema. 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 IMAGING: Reviewed. Chest x-ray, no acute cardiopulmonary process noted. LABORATORY DATA: 2019 WBC 13.5, hemoglobin 8.2, hematocrit 28, platelet count 197,000. INR of 1.01, BUN of 70, creatinine 2.35. A1c of 8.8. 06/01/19: wbc 7, hgb 9.8, plt 289 10/24/19 wbc 7, hgb 8.4, plt 271, cr 4.3 ASSESSMENT AND RECOMMENDATIONS: # Anemia of chronic disease due to underlying chronic medical issues, multifactorial --> Anemia w/u has been reviewed. --> no evidence of hemolysis is noted, peripheral smear has been reviewed --> hgb goal is >7, transfuse as needed --> currently remains stable, occult blood negative --> hgb 8.4 --> EPOGEN Started # Acute kidney injury r/o potential reversible component --> reviewed meds, those that are renally cleared removed --> as per renal recs, appreciated # Hypertension, essential --> sbp goal is <140, consider anti-htn as needed --> currently started on hyralazine 25mg po q6h prn sbp >140 # CHF - hx of CHF --> obtain a 2d echo per cards --> diuresis with lasix as needed --> cardiology recs appreciated #. Leukocytosis with underlying infectionv stress reaction HISTORY --> per id and better --> for infection, ABX ctx/vanc #. Bilateral lower extremity amputee, metatarsal several years ago #. Hyperkalemia -- kayxelate as needed #. Dvt ppx scds The time the note was entered does not necessarily correspond to the time the patient was seen. GREATLY APPRECIATE CONSULTATION. Melvin Rizzo MD Oct 24, 2019 12:22
--- NOTE | 2019-10-24 12:54 | Consultation ---
History of Present Illness General Date patient seen: Oct 24, 2019 Reason for Hospitalization: Abnormal Labs Present Illness HPI This is a 79-year-old male well known to me from multiple admissions at different facilities who has a history of prior pna, hypertension, diabetes mellitus, peripheral vascular disease, osteoporosis bilateral metatarsal amputations, open wounds who presents to [facility] with generalized weakness, abnormal labs, elevated BUN and creatinine, anemia open wounds. Surgery was called to evaluate assist with care. Patient seen, patient evaluated, chart reviewed. Patient currently on BiPAP and respiratory insufficiency. He is awake somewhat alert but not very responsive cannot provide history. Allergies: Coded Allergies: PENICILLINS (Verified Allergy, Unknown, 12/11/18) COVID-19 Screening Contact w/high risk pt: No Experienced COVID-19 symptoms?: No Medication History Scheduled Allopurinol* (Allopurinol*), 300 MG ORAL DAILY, (Reported) Atenolol* (Tenormin*), 100 MG ORAL DAILY, (Reported) Atorvastatin Calcium* (Atorvastatin Calcium*), 10 MG ORAL BEDTIME, (Reported) Docusate Sodium* (Colace*), 100 MG ORAL DAILY, (Reported) Insulin Aspart (Novolog Flexpen), 0 UNITS SUBQ BEFORE MEALS AND HS Pantoprazole* (Protonix*), 40 MG ORAL DAILY, (Reported) Pioglitazone Hcl* (Actos*), 15 MG ORAL DAILY, (Reported) Rivaroxaban (Xarelto*), 20 MG ORAL DAILY, (Reported) [Cholecalciferol], 125 MCG PO DAILY, (Reported) Scheduled PRN Melatonin (Melatonin), 1 MG SL BEDTIME PRN for Insomnia, (Reported) Melatonin/Pyridoxine HCl (B6) (Melatonin 3 mg Tablet), 1 EACH PO HS PRN for Insomnia, (Reported) Sennosides (Senna Laxative), 8.6 MG PO HS PRN for Constipation, (Reported) Miscellaneous Medications Hydroxyzine Hcl (Hydroxyzine Hcl), 50 MG PO, (Reported) Discontinued Medications Cranberry Fruit (Cranberry), 500 MG PO, (Reported) Discontinued Reason: MD discontinued med Gabapentin (Neurontin), 300 MG ORAL THREE TIMES A DAY, (Reported) Discontinued Reason: MD discontinued med Gemfibrozil (Gemfibrozil), 600 MG PO BID, (Reported) Discontinued Reason: MD discontinued med Glimepiride* (Glimepiride*), 1 MG ORAL BEFORE BREAKFAST, (Reported) Discontinued Reason: MD discontinued med Patient History Limited by: medical condition History Provided By: Medical Record, PMD Healthcare decision maker N Resuscitation status Advanced Directive on File Past Medical/Surgical History Past Medical/Surgical History: (1) History of hypertension (2) Renal failure (ARF), acute on chronic (3) Cellulitis of foot (4) ATN (acute tubular necrosis) (5) Osteomyelitis (6) Acute encephalopathy (7) Bacteremia (8) Cellulitis (9) Hypercarbia (10) Pleural effusion (11) Chronic renal failure (12) Hypoglycemia (13) Pneumonia (14) Hyponatremia (15) Metabolic acidosis (16) Anemia (17) CHF (congestive heart failure) (18) Diabetes mellitus (19) Hypertension Review of Systems Review of Symptoms General ROS: no weight loss or fever Psychological ROS: no depression or mood changes, no memory loss Ophthalmic ROS: no visual changes or eye irritation ENT ROS: no nasal congestion, hearing loss, dizziness Allergy and Immunology ROS: no allergic symptoms or urticaria Hematological and Lymphatic ROS: no swollen glands, unusual bleeding or bruising Endocrine ROS: no polyuria, polydipsia, weight changes, temperature intolerance Respiratory ROS: no cough, shortness of breath, or wheezing Cardiovascular ROS: no chest pain or dyspnea on exertion Gastrointestinal ROS: denies abdominal pain, bright red blood in stool. Musculoskeletal ROS: no myalgias or arthralgias Neurological ROS: no TIA or stroke symptoms Dermatological ROS: no new or changing skin lesions, rashes or pruritis Limited given current medical condition Physical Exam Physical Exam General appearance: mild distress, appears stated age Head: Normocephalic, without obvious abnormality, atraumatic Eyes: conjunctivae/corneas clear. PERRL, EOM's intact. Fundi benign Throat: Lips, mucosa, and tongue normal. Teeth and gums normal Neck: supple, symmetrical, trachea midline, no adenopathy, thyroid: not enlarged, symmetric, no tenderness/mass/nodules, no carotid bruit and no JVD Lungs: decreased bilaterally on bipap Heart: regular rate and rhythm, S1, S2 normal, no murmur, click, rub or gallop Abdomen: soft, non-tender. Bowel sounds normal. No masses, no organomegaly Extremities: extremities normal, atraumatic, no cyanosis or edema Pulses: 2+ and symmetric Skin: Skin see below Neurologic: Grossly normal Last 24 Hour Vital Signs Date Time Temp Pulse Resp B/P (MAP) Pulse Ox O2 Delivery O2 Flow Rate FiO2 10/24/19 12:26 78 10/24/19 08:00 30 10/24/19 08:00 98.2 75 21 147/72 (97) 100 10/24/19 08:00 Bi-pap 10/24/19 07:40 76 10/24/19 07:30 77 39 99 30 10/24/19 04:00 98.2 77 25 153/72 (99) 100 10/24/19 04:00 Bi-pap 10/24/19 04:00 30 10/24/19 03:31 74 10/24/19 02:46 Bi-pap 10/24/19 02:31 69 24 99 30 10/24/19 01:00 75 25 99 30 10/24/19 00:00 72 10/24/19 00:00 98.1 73 25 153/72 (99) 99 10/24/19 00:00 Bi-pap 10/23/19 23:30 73 24 98 30 10/23/19 21:05 70 25 99 30 10/23/19 20:18 74 25 100 30 10/23/19 20:00 98.1 77 16 140/61 (87) 99 10/23/19 20:00 75 10/23/19 20:00 30 10/23/19 20:00 Bi-pap 10/23/19 19:57 100 Nasal Cannula 2.0 28 10/23/19 16:00 70 10/23/19 16:00 Bi-pap 10/23/19 16:00 30 10/23/19 16:00 97.3 71 16 150/78 (102) 96 10/23/19 15:00 98 10/23/19 13:00 98 Intake and Output 10/23/19 10/24/19 19:00 07:00 Intake Total 500 ml Output Total 300 ml 350 ml Balance -300 ml 150 ml Intake IV Total 500 ml Output Urine Total 300 ml 350 ml # Bowel Movements 4 Laboratory Tests Test 10/23/19 17:38 10/23/19 22:00 10/24/19 03:17 Arterial Blood pH 7.247 (7.350-7.450) 7.232 (7.350-7.450) Arterial Blood Partial Pressure CO2 43.4 mmHg (35.0-45.0) 47.3 mmHg (35.0-45.0) H Arterial Blood Partial Pressure O2 62.1 mmHg (75.0-100.0) L 112.6 mmHg (75.0-100.0) H Arterial Blood HCO3 18.5 mmol/L (22.0-26.0) L 19.5 mmol/L (22.0-26.0) L Arterial Blood Oxygen Saturation 90.7 % (95-100) L 97.3 % (95-100) Arterial Blood Base Excess -8.3 (-2-2) L -7.6 (-2-2) L Kristian Test Positive Positive White Blood Count 7.2 K/UL (4.8-10.8) Red Blood Count 2.79 M/UL (4.70-6.10) L Hemoglobin 8.4 G/DL (14.2-18.0) L Hematocrit 27.9 % (42.0-52.0) L Mean Corpuscular Volume 100 FL (80-99) H Mean Corpuscular Hemoglobin 30.1 PG (27.0-31.0) Mean Corpuscular Hemoglobin Concent 30.0 G/DL (32.0-36.0) L Red Cell Distribution Width 15.3 % (11.6-14.8) H Platelet Count 271 K/UL (150-450) Mean Platelet Volume 6.5 FL (6.5-10.1) Neutrophils (%) (Auto) 75.4 % (45.0-75.0) H Lymphocytes (%) (Auto) 17.4 % (20.0-45.0) L Monocytes (%) (Auto) 6.1 % (1.0-10.0) Eosinophils (%) (Auto) 0.7 % (0.0-3.0) Basophils (%) (Auto) 0.5 % (0.0-2.0) Sodium Level 137 MMOL/L (136-145) Potassium Level 5.4 MMOL/L (3.5-5.1) H Chloride Level 103 MMOL/L (98-107) Carbon Dioxide Level 18 MMOL/L (21-32) L Anion Gap 16 mmol/L (5-15) H Blood Urea Nitrogen 82 mg/dL (7-18) H Creatinine 4.3 MG/DL (0.55-1.30) H Estimat Glomerular Filtration Rate 13.3 mL/min (>60) Glucose Level 120 MG/DL (74-106) H Hemoglobin A1c 6.3 % (4.3-6.0) H Uric Acid 3.9 MG/DL (2.6-7.2) Calcium Level 8.9 MG/DL (8.5-10.1) Phosphorus Level 7.7 MG/DL (2.5-4.9) H Total Bilirubin 0.2 MG/DL (0.2-1.0) Gamma Glutamyl Transpeptidase 56 U/L (5-85) Aspartate Amino Transf (AST/SGOT) 35 U/L (15-37) Alanine Aminotransferase (ALT/SGPT) 28 U/L (12-78) Alkaline Phosphatase 129 U/L (46-116) H Pro-B-Type Natriuretic Peptide 40318 pg/mL (0-125) H Total Protein 6.0 G/DL (6.4-8.2) L Albumin 2.9 G/DL (3.4-5.0) L Globulin 3.1 g/dL Albumin/Globulin Ratio 0.9 (1.0-2.7) L Triglycerides Level 128 MG/DL (30-150) Cholesterol Level 148 MG/DL (< 200) LDL Cholesterol 92 mg/dL (<100) HDL Cholesterol 50 MG/DL (40-60) Cholesterol/HDL Ratio 3.0 (3.3-4.4) L Thyroid Stimulating Hormone (TSH) 10.242 uiU/mL (0.358-3.740) Random Vancomycin Level 8.4 ug/mL Height (Feet): 5 Height (Inches): 8.00 Weight (Pounds): 165 Medications Current Medications Medications (Trade) Dose Ordered Sig/Cammy Route PRN Reason Start Time Stop Time Status Last Admin Dose Admin Acetaminophen (Tylenol) 650 mg Q6H PRN ORAL Pain Scale (3-5) 10/24/19 07:00 11/23/19 06:59 Allopurinol (allopurinoL) 300 mg DAILY ORAL 10/23/19 09:00 11/22/19 08:59 Atorvastatin Calcium (Lipitor) 10 mg BEDTIME ORAL 10/23/19 21:00 01/21/20 20:59 10/23/19 21:07 Ceftriaxone Sodium 2 gm/ Dextrose 55 ml @ 110 mls/hr Q24H IVPB 10/24/19 12:00 10/31/19 11:59 Dextrose (Dextrose 50%) 25 ml Q30M PRN IV Hypoglycemia 10/22/19 21:45 01/20/20 21:44 Dextrose (Dextrose 50%) 50 ml Q30M PRN IV Hypoglycemia 10/22/19 21:45 01/20/20 21:44 10/23/19 05:14 Dextrose/Sodium Chloride 1,000 ml @ 50 mls/hr Q20H IV 10/23/19 01:00 11/22/19 00:59 10/23/19 21:08 Docusate Sodium (Colace) 100 mg TID ORAL 10/23/19 13:00 11/22/19 08:59 10/23/19 14:25 Epoetin William (Epoetin William-EPBX(NON ESRD)) 10,000 unit SUBQ 10/25/19 21:00 01/23/20 20:59 Gabapentin (Neurontin) 100 mg THREE TIMES A DAY ORAL 10/23/19 09:00 11/22/19 08:59 10/23/19 14:25 Haloperidol Lactate (Haldol) 5 mg Q6H PRN IM Agitation 10/24/19 11:30 12/08/19 11:29 10/24/19 11:54 Pantoprazole (Protonix) 40 mg EVERY 12 HOURS IVP 10/23/19 09:00 11/22/19 08:59 10/24/19 09:09 Rivaroxaban (Xarelto) 20 mg DAILY ORAL 10/23/19 09:00 01/21/20 08:59 Sennosides (Senokot) 8.6 mg HSPRN PRN ORAL Constipation 10/22/19 23:15 11/21/19 23:14 Sevelamer Carbonate (Renvela) 800 mg THREE TIMES A DAY ORAL 10/23/19 13:00 01/21/20 12:59 10/23/19 14:25 Vancomycin HCl (Vanco pharmacy to dose) 1 ea DAILY PRN MISC Per rx protocol 10/22/19 22:15 11/21/19 22:14 Vitamin B Complex/ Vit C/Folic Acid (Nephrovite) 1 tab DAILY ORAL 10/23/19 09:00 11/22/19 08:59 Assessment/Plan Problem List: (1) Hypercarbia ICD Codes: R06.89 - Other abnormalities of breathing SNOMED: 21985998 (2) Pleural effusion ICD Codes: J90 - Pleural effusion, not elsewhere classified SNOMED: 90409018 (3) Chronic renal failure ICD Codes: N18.9 - Chronic kidney disease, unspecified SNOMED: 26842970 (4) Anemia ICD Codes: D64.9 - Anemia, unspecified SNOMED: 598443999 (5) CHF (congestive heart failure) ICD Codes: I50.9 - Heart failure, unspecified SNOMED: 00313493 (6) Bacteremia ICD Codes: R78.81 - Bacteremia SNOMED: 3712991 (7) Cellulitis ICD Codes: L03.90 - Cellulitis, unspecified SNOMED: 991889759 (8) Hypoglycemia ICD Codes: E16.2 - Hypoglycemia, unspecified SNOMED: 924270244 (9) Hyponatremia ICD Codes: E87.1 - Hypo-osmolality and hyponatremia SNOMED: 35895900 (10) ATN (acute tubular necrosis) ICD Codes: N17.0 - Acute kidney failure with tubular necrosis SNOMED: 33298990 (11) Metabolic acidosis ICD Codes: E87.2 - Acidosis SNOMED: 84800192 (12) Pneumonia ICD Codes: J18.9 - Pneumonia, unspecified organism SNOMED: 045840630 (13) Cellulitis of foot Assessment & Plan: Hx prior amputation prior MRI and plain films reviewed wounds stable and local care being provided no abscess noted cont with dressings elevate heels with pillow turn q2h off load pressure air mattress will follow with recs thank you ICD Codes: L03.119 - Cellulitis of unspecified part of limb SNOMED: 444929650 (14) Osteomyelitis ICD Codes: M86.9 - Osteomyelitis, unspecified SNOMED: 51601400 (15) History of hypertension ICD Codes: Z86.79 - Personal history of other diseases of the circulatory system SNOMED: 214432842 (16) Renal failure (ARF), acute on chronic ICD Codes: N17.9 - Acute kidney failure, unspecified; N18.9 - Chronic kidney disease, unspecified SNOMED: 837526605 (17) Acute encephalopathy ICD Codes: G93.40 - Encephalopathy, unspecified SNOMED: 70283089, 540564433 (18) Diabetes mellitus ICD Codes: E11.9 - Type 2 diabetes mellitus without complications SNOMED: 06094034 (19) Hypertension ICD Codes: I10 - Essential (primary) hypertension SNOMED: 32739512 (20) Cholelithiasis Assessment & Plan: US reviewed exam benign asymptomatic cholelithiasis alk phos mild elevated trend labs no acute surgical intervention planned Liver: Liver measures 14.8 cm. No intrahepatic bile duct dilation. Gallbladder: Small stone in the gallbladder. No significant gallbladder wall thickening or pericholecystic fluid. Negative sonographic Bianchi's sign. Common bile duct: Normal common bile duct measuring 4.5 mm. No stones. No dilation. Pancreas: Pancreas is not visualized due to overlying bowel gas. Kidneys: Right kidney measures 9.1 cm in length. No hydronephrosis or stone. Left kidney not visualized due to patient's body habitus. Spleen: Spleen measures 9.4 cm. No focal lesion. Aorta: Visualized portions of the aorta are grossly unremarkable. The mid and distal portions are obscured by bowel gas. Inferior vena cava: Unremarkable. Free fluid: No ascites. Tubes, lines and devices: Lyles catheter in a decompressed bladder. IMPRESSION: Small stone in the gallbladder. No significant gallbladder wall thickening or pericholecystic fluid. Negative sonographic Bianchi's sign. ICD Codes: K80.20 - Calculus of gallbladder without cholecystitis without obstruction SNOMED: 756533003 Mariusz Diehl Oct 24, 2019 12:53
--- NOTE | 2019-10-24 13:10 | Nephrology Progress Note ---
Assessment/Plan Problem List: (1) Renal failure (ARF), acute on chronic (2) Metabolic acidosis (3) Electrolyte imbalance Assessment: Hyponatremia and hyperkalemia (4) Anemia (5) CHF (congestive heart failure) Assessment 79-year-old male is admitted for hypoglycemia Patient has renal failure which appears to be acute on chronic Hyperkalemia Hyponatremia CHF, pleural effusion, pneumonia Anemia Metabolic acidosis Hypothyroidism Plan October 23: Patient remains on BiPAP. More Kayexalate ordered. Will consider hemodialysis to correct fluid overload and hyperkalemia and acidosis. Will discuss with PMD. Meanwhile IV Synthroid started. Discussed with RN Timothy Patient already transfused 1 unit for severe anemia previously Will initiate Epogen 10,000 units subcutaneously 1 dose of IV iron Venofer 200 g IV Kayexalate for hyperkalemia as needed 2D echocardiogram ordered, ejection fraction is reported normal Kidney ultrasound ordered: Kidneys: Right kidney measures 9.1 cm in length. No hydronephrosis or stone. Left kidney not visualized due to patient's body habitus. Avoid nephrotoxic's Monitor renal parameters Will hold insulin and hypoglycemic agents until hypoglycemia is reasonably resolved Subjective ROS Limited/Unobtainable: Yes Objective Objective Last 24 Hour Vital Signs Date Time Temp Pulse Resp B/P (MAP) Pulse Ox O2 Delivery O2 Flow Rate FiO2 10/24/19 12:26 78 10/24/19 08:00 30 10/24/19 08:00 98.2 75 21 147/72 (97) 100 10/24/19 08:00 Bi-pap 10/24/19 07:40 76 10/24/19 07:30 77 39 99 30 10/24/19 04:00 98.2 77 25 153/72 (99) 100 10/24/19 04:00 Bi-pap 10/24/19 04:00 30 10/24/19 03:31 74 10/24/19 02:46 Bi-pap 10/24/19 02:31 69 24 99 30 10/24/19 01:00 75 25 99 30 10/24/19 00:00 72 10/24/19 00:00 98.1 73 25 153/72 (99) 99 10/24/19 00:00 Bi-pap 10/23/19 23:30 73 24 98 30 10/23/19 21:05 70 25 99 30 10/23/19 20:18 74 25 100 30 10/23/19 20:00 98.1 77 16 140/61 (87) 99 10/23/19 20:00 75 10/23/19 20:00 30 10/23/19 20:00 Bi-pap 10/23/19 19:57 100 Nasal Cannula 2.0 28 10/23/19 16:00 70 10/23/19 16:00 Bi-pap 10/23/19 16:00 30 10/23/19 16:00 97.3 71 16 150/78 (102) 96 10/23/19 15:00 98 Intake and Output 10/23/19 10/24/19 19:00 07:00 Intake Total 500 ml Output Total 300 ml 350 ml Balance -300 ml 150 ml Intake IV Total 500 ml Output Urine Total 300 ml 350 ml # Bowel Movements 4 Laboratory Tests 10/23/19 17:38: Arterial Blood pH 7.247*L, Arterial Blood Partial Pressure CO2 43.4, Arterial Blood Partial Pressure O2 62.1L, Arterial Blood HCO3 18.5L, Arterial Blood Oxygen Saturation 90.7L, Arterial Blood Base Excess -8.3L, Kristian Test Positive 10/23/19 22:00: Arterial Blood pH 7.232*L, Arterial Blood Partial Pressure CO2 47.3H, Arterial Blood Partial Pressure O2 112.6H, Arterial Blood HCO3 19.5L, Arterial Blood Oxygen Saturation 97.3, Arterial Blood Base Excess -7.6L, Kristian Test Positive 10/24/19 03:17: White Blood Count 7.2, Red Blood Count 2.79L, Hemoglobin 8.4L, Hematocrit 27.9L , Mean Corpuscular Volume 100H, Mean Corpuscular Hemoglobin 30.1, Mean Corpuscular Hemoglobin Concent 30.0L, Red Cell Distribution Width 15.3H, Platelet Count 271, Mean Platelet Volume 6.5, Neutrophils (%) (Auto) 75.4H, Lymphocytes (%) (Auto) 17.4L, Monocytes (%) (Auto) 6.1, Eosinophils (%) (Auto) 0.7, Basophils (%) (Auto) 0.5, Sodium Level 137, Potassium Level 5.4H, Chloride Level 103, Carbon Dioxide Level 18L, Anion Gap 16H, Blood Urea Nitrogen 82H, Creatinine 4.3H, Estimat Glomerular Filtration Rate 13.3, Glucose Level 120H, Hemoglobin A1c 6.3H, Uric Acid 3.9, Calcium Level 8.9, Phosphorus Level 7.7H, Total Bilirubin 0.2, Gamma Glutamyl Transpeptidase 56, Aspartate Amino Transf ( AST/SGOT) 35, Alanine Aminotransferase (ALT/SGPT) 28, Alkaline Phosphatase 129H , Pro-B-Type Natriuretic Peptide 25053R, Total Protein 6.0L, Albumin 2.9L, Globulin 3.1, Albumin/Globulin Ratio 0.9L, Triglycerides Level 128, Cholesterol Level 148, LDL Cholesterol 92, HDL Cholesterol 50, Cholesterol/HDL Ratio 3.0L, Thyroid Stimulating Hormone (TSH) 10.242H, Random Vancomycin Level 8.4 Height (Feet): 5 Height (Inches): 8.00 Weight (Pounds): 165 General Appearance: mild distress, agitated - Periodically EENT: other - On BiPAP Cardiovascular: tachycardia Respiratory/Chest: decreased breath sounds Abdomen: distended Naveed Vanegas MD Oct 24, 2019 13:10
[2019-10-24] MEDS: cefTRIAXone 2 GM in D5W 55 ML IVPB SCH (13:32)
[2019-10-24] MEDS ORDERED: LORazepam Inj 2mg/ml 1ml IM SCH (13:45)
[2019-10-24] MEDS: Sodium Bicarbonate 50 ML in D5W 1000ml 1,000 ML IV SCH (14:57)
[2019-10-24] MEDS: D5NS 1,000 ML IV SCH (17:00)
[2019-10-24 20:00] VITALS: BP 151/58
[2019-10-24] MEDS: Carvedilol 6.25mg Tab ORAL SCH (21:13)
--- NOTE | 2019-10-24 23:00 | Progress Note ---
DATE: 10/24/2019 SUBJECTIVE: Patient is afebrile. Hemodynamically improved. Remained agitated and required restraints as he attempted to remove the BiPAP and his IVs. PHYSICAL EXAMINATION: VITAL SIGNS: Blood pressure 151/58, his pulse is 79, respirations are 24, temperature 97.9. HEENT: Eyes were normal. ENT, mucous membranes were moist and intact. NECK: Supple with no JVD without lymph nodes. LUNGS: Clear. There are bilateral rhonchi at both lateral and bases. HEART: Normal sounds with regular beats. There is no tachycardia at rest. ABDOMEN: Soft, nontender with normal bowel sounds. Gastrostomy site is clean. EXTREMITIES: Warm without cyanosis, clubbing, or edema. LABORATORY AND DIAGNOSTIC DATA: His hemoglobin is 8.4, hematocrit 27.9 with MCV of 100, WBC of 7.2, and platelets 271. His BUN and creatinine are 82 and 4.3 respectively. Sodium is 137, potassium 5.4, chloride 103, CO2 is 18. A1c is 6.3. His calcium is 8.9. His phosphorus [place] 7[place] [address]. His LDL is 92. His cholesterol is 145 and triglycerides is 128. His TSH is 10.2. Patient has multiple cultures taken. His COVID-19 test is negative. His urine culture is negative after 24 hours and 2 different blood cultures showed no growth after 24 hours. His chest x-ray with small bilateral pleural effusion, increased vascular markings. Patient has been now vascular congestion or inflammatory process. Chest x-ray done today showed pleural effusion. No significant change from previous chest x-ray. Left pleural effusion is not evident. The prominent lung markings remained right more than left and subsegmental atelectasis versus pneumonia in the left lung. IMPRESSION: In spite of intense treatment, patient has acidosis and hyperkalemia true indicator for dialysis and patient will be undergoing dialysis as a part of his acute treatment. Patient is on ceftriaxone 2 g IV piggyback q.24h. His vancomycin was discontinued. Repeat laboratory tests will be done in a.m. Ayush Chang M.D. DR: YAMILETH JOB#: [id number] CC:
[2019-10-24 23:56] VITALS: BP 139/59
[2019-10-25 04:00] VITALS: BP 178/76
[2019-10-25 06:04] LABS: BASOPHILS % (AUTO) 0.9 % (0.0-2.0); EOSINOPHILS % (AUTO) 0.9 % (0.0-3.0); HEMATOCRIT 28.6 % (42.0-52.0); HEMOGLOBIN 8.6 G/DL (14.2-18.0); LYMPHOCYTES % (AUTO) 18.7 % (20.0-45.0); MEAN CORPUSCULAR VOLUME 100 FL (80-99); MONOCYTES % (AUTO) 6.7 % (1.0-10.0); NEUTROPHILS % (AUTO) 72.8 % (45.0-75.0); PLATELET COUNT 269 K/UL (150-450); RED BLOOD COUNT 2.85 M/UL (4.70-6.10); RED CELL DISTRIBUTION WIDTH 15.5 % (11.6-14.8); WHITE BLOOD COUNT 5.7 K/UL (4.8-10.8)
[2019-10-25 06:22] LABS: ALANINE AMINOTRANSFERASE 29 U/L (12-78); ALBUMIN 2.6 G/DL (3.4-5.0); ALBUMIN/GLOBULIN RATIO 0.7 (1.0-2.7); ALKALINE PHOSPHATASE 115 U/L (46-116); ANION GAP 10 mmol/L (5-15); ASPARTATE AMINO TRANSFERASE 41 U/L (15-37); BILIRUBIN,TOTAL 0.3 MG/DL (0.2-1.0); BLOOD UREA NITROGEN 75 mg/dL (7-18); CALCIUM 8.9 MG/DL (8.5-10.1); CARBON DIOXIDE 24 MMOL/L (21-32); CHLORIDE 105 MMOL/L (98-107); CREATININE 3.9 MG/DL (0.55-1.30); GAMMA GLUTAMYL TRANSPEPTIDASE 38 U/L (5-85); PHOSPHORUS 6.9 MG/DL (2.5-4.9); POTASSIUM 4.2 MMOL/L (3.5-5.1); SODIUM 139 MMOL/L (136-145)
[2019-10-25 06:40] LABS: FERRITIN 299 NG/ML (8-388)
[2019-10-25 06:59] LABS: % IRON SATURATION 35 % (15-50); IRON 89 ug/dL (50-175); TOTAL IRON BINDING CAPACITY 252 ug/dL (250-450)
[2019-10-25 08:00] VITALS: BP 184/76
[2019-10-25] MEDS: Docusate 100mg cap ORAL SCH ×3 (09:06→17:37)
[2019-10-25] MEDS: Carvedilol 6.25mg Tab ORAL SCH (09:06)
[2019-10-25] MEDS: Nephrovite tab (Rena-Vite) ORAL SCH (09:06)
[2019-10-25] MEDS: Xarelto 10mg tab ORAL SCH (09:07)
[2019-10-25] MEDS: Pantoprazole Inj IVP SCH ×2 (09:07→20:46)
--- NOTE | 2019-10-25 09:52 | Pulmonology Progress Note ---
Reema Hanna BOWL SANDER 10/25/19 0952: Subjective ROS Limited/Unobtainable: Yes Allergies: Coded Allergies: PENICILLINS (Verified Allergy, Unknown, 10/25/19) tolerated Ceftriaxone Subjective pt apparently was removing BiPAP mask placed on O2 via NC ABG on O2 noted, hypercapnia resolved denies CP, SOB, cough Objective Last 24 Hour Vital Signs Date Time Temp Pulse Resp B/P (MAP) Pulse Ox O2 Delivery O2 Flow Rate FiO2 10/25/19 09:06 84 184/76 10/25/19 08:00 98.1 84 24 184/76 (112) 100 10/25/19 08:00 85 10/25/19 04:00 2.0 10/25/19 04:00 98.2 80 24 178/76 (110) 100 10/25/19 04:00 91 10/25/19 04:00 Nasal Cannula 2.0 10/25/19 00:00 77 10/25/19 00:00 Nasal Cannula 2.0 10/24/19 23:56 97.3 76 26 139/59 (85) 100 10/24/19 23:13 2.0 10/24/19 21:45 4.0 10/24/19 21:13 85 151/58 10/24/19 20:56 85 22 99 45 10/24/19 20:00 82 10/24/19 20:00 Bi-pap 10/24/19 20:00 30 10/24/19 20:00 97.9 79 24 151/58 (89) 100 10/24/19 19:29 81 24 100 45 10/24/19 16:58 80 10/24/19 16:00 Bi-pap 10/24/19 16:00 30 10/24/19 14:31 83 4 100 45 10/24/19 12:26 78 10/24/19 12:00 30 10/24/19 12:00 97.9 86 21 140/71 (94) 100 10/24/19 12:00 Bi-pap 10/24/19 10:45 84 26 100 45 Intake and Output 10/24/19 10/25/19 19:00 07:00 Intake Total 550 ml 800 ml Output Total 400 ml 550 ml Balance 150 ml 250 ml Intake Oral 200 ml IV Total 550 ml 600 ml Output Urine Total 400 ml 550 ml # Bowel Movements 2 Objective General Appearance: no apparent distress, Singaporean speaking confused male, Lines, tubes and drains: peripheral HEENT: normocephalic, atraumatic, anicteric, mucous membranes moist, O2 via NC Respiratory/Chest: other - few scattered rhonchi Cardiovascular/Chest: normal rate, regular rhythm Abdomen: normal bowel sounds, non tender, soft Extremities: partially amputated BL foot Skin Exam: warm/dry Neurologic: abnormal gait, alert, oriented , confused Musculoskeletal: atrophy - BLE Microbiology Date/Time Source Procedure Growth Status 10/22/19 16:45 Blood Blood Culture - Preliminary NO GROWTH AFTER 48 HOURS Resulted 10/22/19 16:35 Blood Blood Culture - Preliminary NO GROWTH AFTER 48 HOURS Resulted 10/22/19 18:00 Nasal Nares MRSA Culture - Final NO METHICILLIN RESISTANT STAPH AUREUS... Complete 10/22/19 16:45 Nasopharynx SARS-CoV-2 RdRp Gene Assay - Final Complete 10/22/19 17:00 Urine,Clean Catch Urine Culture - Final NO GROWTH AFTER 48 HOURS Complete 10/22/19 18:00 Rectum - Final NO CARBAPENEM-RESISTANT ENTEROBACTERI... Complete 10/22/19 18:00 Rectum VRE Culture - Final NO VANCOMYCIN RESISTANT ENTEROCOCCUS ... Complete Laboratory Tests 10/25/19 04:12: White Blood Count 5.7, Red Blood Count 2.85L, Hemoglobin 8.6L, Hematocrit 28.6L , Mean Corpuscular Volume 100H, Mean Corpuscular Hemoglobin 30.1, Mean Corpuscular Hemoglobin Concent 30.1L, Red Cell Distribution Width 15.5H, Platelet Count 269, Mean Platelet Volume 6.5, Neutrophils (%) (Auto) 72.8, Lymphocytes (%) (Auto) 18.7L, Monocytes (%) (Auto) 6.7, Eosinophils (%) (Auto) 0.9, Basophils (%) (Auto) 0.9, Prothrombin Time 11.3, Prothromb Time International Ratio 1.0, Activated Partial Thromboplast Time 32, Sodium Level 139, Potassium Level 4.2, Chloride Level 105, Carbon Dioxide Level 24, Anion Gap 10, Blood Urea Nitrogen 75H, Creatinine 3.9H, Estimat Glomerular Filtration Rate 14.9, Glucose Level 180H, Uric Acid 4.2, Calcium Level 8.9, Phosphorus Level 6.9H, Magnesium Level 2.1, Iron Level 89, Total Iron Binding Capacity 252 , Percent Iron Saturation 35, Unsaturated Iron Binding 163, Ferritin 299, Total Bilirubin 0.3, Gamma Glutamyl Transpeptidase 38, Aspartate Amino Transf (AST/ SGOT) 41H, Alanine Aminotransferase (ALT/SGPT) 29, Alkaline Phosphatase 115, Troponin I 0.009, C-Reactive Protein, Quantitative 4.1H, Pro-B-Type Natriuretic Peptide 41826W, Total Protein 6.5, Albumin 2.6L, Globulin 3.9, Albumin/Globulin Ratio 0.7L, Cortisol AM Sample [Pending] 10/25/19 07:23: Arterial Blood pH 7.291L, Arterial Blood Partial Pressure CO2 39.5, Arterial Blood Partial Pressure O2 66.1L, Arterial Blood HCO3 18.6L, Arterial Blood Oxygen Saturation 91.6L, Arterial Blood Base Excess -7.4L, Kristian Test Positive Current Medications Medications (Trade) Dose Ordered Sig/Cammy Route PRN Reason Start Time Stop Time Status Last Admin Dose Admin Acetaminophen (Tylenol) 650 mg Q6H PRN ORAL Pain Scale (3-5) 10/24/19 07:00 11/23/19 06:59 Atorvastatin Calcium (Lipitor) 10 mg BEDTIME ORAL 10/23/19 21:00 01/21/20 20:59 10/24/19 21:12 Carvedilol (Coreg) 6.25 mg EVERY 12 HOURS ORAL 10/24/19 21:00 11/23/19 20:59 10/25/19 09:06 Ceftriaxone Sodium 2 gm/ Dextrose 55 ml @ 110 mls/hr Q24H IVPB 10/24/19 12:00 10/31/19 11:59 10/24/19 13:32 Dextrose (Dextrose 50%) 25 ml Q30M PRN IV Hypoglycemia 10/22/19 21:45 01/20/20 21:44 Dextrose (Dextrose 50%) 50 ml Q30M PRN IV Hypoglycemia 10/22/19 21:45 01/20/20 21:44 10/23/19 05:14 Dextrose/Sodium Chloride 1,000 ml @ 50 mls/hr Q20H IV 10/23/19 01:00 11/22/19 00:59 10/23/19 21:08 Docusate Sodium (Colace) 100 mg TID ORAL 10/23/19 13:00 11/22/19 08:59 8/3/20 09:06 Epoetin William (Epoetin William-EPBX(NON ESRD)) 10,000 unit FRI-FRI-FRI SUBQ 10/25/19 21:00 01/23/20 20:59 Gabapentin (Neurontin) 100 mg THREE TIMES A DAY ORAL 10/23/19 09:00 11/22/19 08:59 10/25/19 09:06 Hydralazine HCl (Apresoline) 20 mg Q6H PRN IV For High Blood Pressure 10/25/19 09:00 01/23/20 08:59 Levothyroxine Sodium (Synthroid) 50 mcg DAILY IV 10/24/19 14:00 11/23/19 13:59 10/25/19 09:06 Pantoprazole (Protonix) 40 mg EVERY 12 HOURS IVP 10/23/19 09:00 11/22/19 08:59 10/25/19 09:07 Rivaroxaban (Xarelto) 20 mg DAILY ORAL 10/23/19 09:00 01/21/20 08:59 10/25/19 09:07 Sennosides (Senokot) 8.6 mg HSPRN PRN ORAL Constipation 10/22/19 23:15 11/21/19 23:14 Sevelamer Carbonate (Renvela) 800 mg THREE TIMES A DAY ORAL 10/23/19 13:00 01/21/20 12:59 10/25/19 09:06 Sodium Bicarbonate 50 ml/ Dextrose 1,050 ml @ 50 mls/hr Q21H IV 10/24/19 14:00 11/23/19 13:59 10/24/19 14:57 Vancomycin HCl (Vanco pharmacy to dose) 1 ea DAILY PRN MISC Per rx protocol 10/22/19 22:15 11/21/19 22:14 Vitamin B Complex/ Vit C/Folic Acid (Nephrovite) 1 tab DAILY ORAL 10/23/19 09:00 11/22/19 08:59 10/25/19 09:06 Assessment/Plan Assessment/Plan ASSESSMENT Acute hypoxemic hypercapnic respiratory failure requiring BiPAP Acute metabolic encephalopathy likely due to hypoglycemia Diabetes mellitus with initial hypoglycemia Probably pneumonia Acute kidney injury on chronic kidney disease Severe anemia requiring blood transfusion Metabolic acidosis Electrolyte imbalance :hyponatremia, hyperkalemia HTN PLAN OF CARE TOYIN off BiPAP now on o2 via NC hypercapnia resolved still acidotic titrate FiO2 to keep sat > 90% pulm toilet 10/21 rapid COVID NGT, another one pending as ordered by ID CXR this am pending BiPAP prn empiric abx as per ID recs -> Ceftriaxone and Vanco BCX 10/21 NGTD UCX NGT SCX if able ECHO with pEF 55-60% Venous Duplex BLE on chronic a/c with Xarelto ?unclear reason monitor volumes swallow eval aspiration precautions gentle IV dextrose with bicarb, monitor acid base status , ABG in am HgA1c -6.1 hold oral antiglycemic SSI prn will recommend to change to sensitive AMS was most likely due to episode of hypoglycemia CT head NGT for acute ICP renal US avoid nephrotoxic s/p Kayexalate and sodium bicarb Na corrected, still hyper K, and low bicarb fup with nephro recommendation creat slowly trending down monitor HH with goal to keep Hgb above 7 stool OB anemia w/up s/p 1 dose of Venofer now on EPO as per nephro rec GI prophayxlis supportive care thanks for a consult! case discussed and evaluated by supervising physician Leoncio Galan MD 10/25/192047: Subjective Allergies: Coded Allergies: PENICILLINS (Verified Allergy, Unknown, 10/25/19) tolerated Ceftriaxone Assessment/Plan Assessment/Plan Agree with above assessment and plan. Discontinue BiPAP as acidosis is metabolic. Reema Hanna NP Oct 25, 2019 09:52 Leoncio Galan MD Oct 25, 2019 20:48
--- NOTE | 2019-10-25 10:10 | Nephrology Progress Note ---
Assessment/Plan Problem List: (1) Renal failure (ARF), acute on chronic (2) Metabolic acidosis (3) Electrolyte imbalance Assessment: Hyponatremia and hyperkalemia (4) Anemia (5) CHF (congestive heart failure) Assessment 79-year-old male is admitted for hypoglycemia Patient has renal failure which appears to be acute on chronic Hyperkalemia Hyponatremia CHF, pleural effusion, pneumonia Anemia Metabolic acidosis Hypothyroidism Plan October 24: Patient's respiratory status somewhat improved. Serum creatinine down to 3.9. Urinary output somewhat increased. Will hold placement of dialysis catheter at this time. Blood pressure medication adjusted. Continue to monitor renal parameters. Per orders. October 23: Patient remains on BiPAP. More Kayexalate ordered. Will consider hemodialysis to correct fluid overload and hyperkalemia and acidosis. Will discuss with PMD. Meanwhile IV Synthroid started. Discussed with RN Timothy Patient already transfused 1 unit for severe anemia previously Will initiate Epogen 10,000 units subcutaneously 1 dose of IV iron Venofer 200 g IV Kayexalate for hyperkalemia as needed 2D echocardiogram ordered, ejection fraction is reported normal Kidney ultrasound ordered: Kidneys: Right kidney measures 9.1 cm in length. No hydronephrosis or stone. Left kidney not visualized due to patient's body habitus. Avoid nephrotoxic's Monitor renal parameters Will hold insulin and hypoglycemic agents until hypoglycemia is reasonably resolved Subjective ROS Limited/Unobtainable: No Constitutional: Reports: malaise Objective Objective Last 24 Hour Vital Signs Date Time Temp Pulse Resp B/P (MAP) Pulse Ox O2 Delivery O2 Flow Rate FiO2 10/25/19 09:06 84 184/76 10/25/19 08:00 98.1 84 24 184/76 (112) 100 10/25/19 08:00 85 10/25/19 04:00 2.0 10/25/19 04:00 98.2 80 24 178/76 (110) 100 10/25/19 04:00 91 10/25/19 04:00 Nasal Cannula 2.0 10/25/19 00:00 77 10/25/19 00:00 Nasal Cannula 2.0 10/24/19 23:56 97.3 76 26 139/59 (85) 100 10/24/19 23:13 2.0 10/24/19 21:45 4.0 10/24/19 21:13 85 151/58 10/24/19 20:56 85 22 99 45 10/24/19 20:00 82 10/24/19 20:00 Bi-pap 10/24/19 20:00 30 10/24/19 20:00 97.9 79 24 151/58 (89) 100 10/24/19 19:29 81 24 100 45 10/24/19 16:58 80 10/24/19 16:00 Bi-pap 10/24/19 16:00 30 10/24/19 14:31 83 4 100 45 10/24/19 12:26 78 10/24/19 12:00 30 10/24/19 12:00 97.9 86 21 140/71 (94) 100 10/24/19 12:00 Bi-pap 10/24/19 10:45 84 26 100 45 Intake and Output 10/24/19 10/25/19 19:00 07:00 Intake Total 550 ml 800 ml Output Total 400 ml 550 ml Balance 150 ml 250 ml Intake Oral 200 ml IV Total 550 ml 600 ml Output Urine Total 400 ml 550 ml # Bowel Movements 2 Laboratory Tests 10/25/19 04:12: White Blood Count 5.7, Red Blood Count 2.85L, Hemoglobin 8.6L, Hematocrit 28.6L , Mean Corpuscular Volume 100H, Mean Corpuscular Hemoglobin 30.1, Mean Corpuscular Hemoglobin Concent 30.1L, Red Cell Distribution Width 15.5H, Platelet Count 269, Mean Platelet Volume 6.5, Neutrophils (%) (Auto) 72.8, Lymphocytes (%) (Auto) 18.7L, Monocytes (%) (Auto) 6.7, Eosinophils (%) (Auto) 0.9, Basophils (%) (Auto) 0.9, Prothrombin Time 11.3, Prothromb Time International Ratio 1.0, Activated Partial Thromboplast Time 32, Sodium Level 139, Potassium Level 4.2, Chloride Level 105, Carbon Dioxide Level 24, Anion Gap 10, Blood Urea Nitrogen 75H, Creatinine 3.9H, Estimat Glomerular Filtration Rate 14.9, Glucose Level 180H, Uric Acid 4.2, Calcium Level 8.9, Phosphorus Level 6.9H, Magnesium Level 2.1, Iron Level 89, Total Iron Binding Capacity 252 , Percent Iron Saturation 35, Unsaturated Iron Binding 163, Ferritin 299, Total Bilirubin 0.3, Gamma Glutamyl Transpeptidase 38, Aspartate Amino Transf (AST/ SGOT) 41H, Alanine Aminotransferase (ALT/SGPT) 29, Alkaline Phosphatase 115, Troponin I 0.009, C-Reactive Protein, Quantitative 4.1H, Pro-B-Type Natriuretic Peptide 78107H, Total Protein 6.5, Albumin 2.6L, Globulin 3.9, Albumin/Globulin Ratio 0.7L, Cortisol AM Sample [Pending] 10/25/19 07:23: Arterial Blood pH 7.291L, Arterial Blood Partial Pressure CO2 39.5, Arterial Blood Partial Pressure O2 66.1L, Arterial Blood HCO3 18.6L, Arterial Blood Oxygen Saturation 91.6L, Arterial Blood Base Excess -7.4L, Kristian Test Positive Height (Feet): 5 Height (Inches): 8.00 Weight (Pounds): 165 General Appearance: mild distress EENT: other - On oxygen with cannula Cardiovascular: tachycardia Respiratory/Chest: decreased breath sounds Abdomen: distended Naveed Vanegas MD Oct 25, 2019 10:10
[2019-10-25] MEDS: Sodium Bicarbonate 50 ML in D5W 1000ml 1,000 ML IV SCH (10:52)
[2019-10-25 12:00] VITALS: BP 154/59
--- NOTE | 2019-10-25 12:00 | Surgery Progress Note ---
Surgery Progress Note Subjective Additional Comments discussed with nephrology hold HD as renal improving h/h noted exam stable comfortable Objective Last 24 Hour Vital Signs Date Time Temp Pulse Resp B/P (MAP) Pulse Ox O2 Delivery O2 Flow Rate FiO2 10/25/19 10:52 85 160/58 10/25/19 10:05 184/66 10/25/19 09:06 84 184/76 10/25/19 08:00 2.0 10/25/19 08:00 Nasal Cannula 2.0 10/25/19 08:00 98.1 84 24 184/76 (112) 100 10/25/19 08:00 85 10/25/19 04:00 2.0 10/25/19 04:00 98.2 80 24 178/76 (110) 100 10/25/19 04:00 91 10/25/19 04:00 Nasal Cannula 2.0 10/25/19 00:00 77 10/25/19 00:00 Nasal Cannula 2.0 10/24/19 23:56 97.3 76 26 139/59 (85) 100 10/24/19 23:13 2.0 10/24/19 21:45 4.0 10/24/19 21:13 85 151/58 10/24/19 20:56 85 22 99 45 10/24/19 20:00 82 10/24/19 20:00 Bi-pap 10/24/19 20:00 30 10/24/19 20:00 97.9 79 24 151/58 (89) 100 10/24/19 19:29 81 24 100 45 10/24/19 16:58 80 10/24/19 16:00 Bi-pap 10/24/19 16:00 30 10/24/19 14:31 83 4 100 45 10/24/19 12:26 78 10/24/19 12:00 30 10/24/19 12:00 97.9 86 21 140/71 (94) 100 10/24/19 12:00 Bi-pap I&O Intake and Output 10/24/19 10/25/19 19:00 07:00 Intake Total 550 ml 800 ml Output Total 400 ml 550 ml Balance 150 ml 250 ml Intake Oral 200 ml IV Total 550 ml 600 ml Output Urine Total 400 ml 550 ml # Bowel Movements 2 Dressing: saturated Wound: other Drains: other Cardiovascular: RSR Respiratory: decreased breath sounds Abdomen: soft, non-tender, present bowel sounds Extremities: edema, no tenderness, no cyanosis Laboratory Tests Test 10/25/19 04:12 10/25/19 07:23 10/25/19 11:20 White Blood Count 5.7 K/UL (4.8-10.8) Red Blood Count 2.85 M/UL (4.70-6.10) L Hemoglobin 8.6 G/DL (14.2-18.0) L Hematocrit 28.6 % (42.0-52.0) L Mean Corpuscular Volume 100 FL (80-99) H Mean Corpuscular Hemoglobin 30.1 PG (27.0-31.0) Mean Corpuscular Hemoglobin Concent 30.1 G/DL (32.0-36.0) L Red Cell Distribution Width 15.5 % (11.6-14.8) H Platelet Count 269 K/UL (150-450) Mean Platelet Volume 6.5 FL (6.5-10.1) Neutrophils (%) (Auto) 72.8 % (45.0-75.0) Lymphocytes (%) (Auto) 18.7 % (20.0-45.0) L Monocytes (%) (Auto) 6.7 % (1.0-10.0) Eosinophils (%) (Auto) 0.9 % (0.0-3.0) Basophils (%) (Auto) 0.9 % (0.0-2.0) Prothrombin Time 11.3 SEC (9.30-11.50) Prothromb Time International Ratio 1.0 (0.9-1.1) Activated Partial Thromboplast Time 32 SEC (23-33) Sodium Level 139 MMOL/L (136-145) Potassium Level 4.2 MMOL/L (3.5-5.1) Chloride Level 105 MMOL/L (98-107) Carbon Dioxide Level 24 MMOL/L (21-32) Anion Gap 10 mmol/L (5-15) Blood Urea Nitrogen 75 mg/dL (7-18) H Creatinine 3.9 MG/DL (0.55-1.30) H Estimat Glomerular Filtration Rate 14.9 mL/min (>60) Glucose Level 180 MG/DL (74-106) H Uric Acid 4.2 MG/DL (2.6-7.2) Calcium Level 8.9 MG/DL (8.5-10.1) Phosphorus Level 6.9 MG/DL (2.5-4.9) H Magnesium Level 2.1 MG/DL (1.8-2.4) Iron Level 89 ug/dL (50-175) Total Iron Binding Capacity 252 ug/dL (250-450) Percent Iron Saturation 35 % (15-50) Unsaturated Iron Binding 163 ug/dL (112-346) Ferritin 299 NG/ML (8-388) Total Bilirubin 0.3 MG/DL (0.2-1.0) Gamma Glutamyl Transpeptidase 38 U/L (5-85) Aspartate Amino Transf (AST/SGOT) 41 U/L (15-37) H Alanine Aminotransferase (ALT/SGPT) 29 U/L (12-78) Alkaline Phosphatase 115 U/L (46-116) Troponin I 0.009 ng/mL (0.000-0.056) C-Reactive Protein, Quantitative 4.1 mg/dL (0.00-0.90) H Pro-B-Type Natriuretic Peptide 15236 pg/mL (0-125) H Total Protein 6.5 G/DL (6.4-8.2) Albumin 2.6 G/DL (3.4-5.0) L Globulin 3.9 g/dL Albumin/Globulin Ratio 0.7 (1.0-2.7) L Cortisol AM Sample Pending Arterial Blood pH 7.291 (7.350-7.450) Arterial Blood Partial Pressure CO2 39.5 mmHg (35.0-45.0) Arterial Blood Partial Pressure O2 66.1 mmHg (75.0-100.0) L Arterial Blood HCO3 18.6 mmol/L (22.0-26.0) L Arterial Blood Oxygen Saturation 91.6 % (95-100) L Arterial Blood Base Excess -7.4 (-2-2) L Kristian Test Positive POC Whole Blood Glucose Pending Plan Problems: (1) Hypercarbia (2) Pleural effusion (3) Chronic renal failure (4) Anemia (5) CHF (congestive heart failure) (6) Bacteremia (7) Cellulitis (8) Hypoglycemia (9) Hyponatremia (10) ATN (acute tubular necrosis) (11) Metabolic acidosis (12) Pneumonia (13) Cellulitis of foot Assessment & Plan: Hx prior amputation prior MRI and plain films reviewed wounds stable and local care being provided no abscess noted cont with dressings elevate heels with pillow turn q2h off load pressure air mattress will follow with recs thank you (14) Osteomyelitis (15) History of hypertension (16) Renal failure (ARF), acute on chronic (17) Acute encephalopathy (18) Diabetes mellitus (19) Hypertension (20) Cholelithiasis Assessment & Plan: US reviewed exam benign asymptomatic cholelithiasis alk phos mild elevated lfts improved trend labs no acute surgical intervention planned Liver: Liver measures 14.8 cm. No intrahepatic bile duct dilation. Gallbladder: Small stone in the gallbladder. No significant gallbladder wall thickening or pericholecystic fluid. Negative sonographic Bianchi's sign. Common bile duct: Normal common bile duct measuring 4.5 mm. No stones. No dilation. Pancreas: Pancreas is not visualized due to overlying bowel gas. Kidneys: Right kidney measures 9.1 cm in length. No hydronephrosis or stone. Left kidney not visualized due to patient's body habitus. Spleen: Spleen measures 9.4 cm. No focal lesion. Aorta: Visualized portions of the aorta are grossly unremarkable. The mid and distal portions are obscured by bowel gas. Inferior vena cava: Unremarkable. Free fluid: No ascites. Tubes, lines and devices: Lyles catheter in a decompressed bladder. IMPRESSION: Small stone in the gallbladder. No significant gallbladder wall thickening or pericholecystic fluid. Negative sonographic Bianchi's sign. Mariusz Diehl Oct 25, 2019 12:00
[2019-10-25] MEDS: cefTRIAXone 2 GM in D5W 55 ML IVPB SCH (12:39)
--- NOTE | 2019-10-25 14:16 | General Progress Note ---
Assessment/Plan Assessment/Plan: Covering Dr. Chang ASSESSMENT AND RECOMMENDATIONS: # Anemia of chronic disease due to underlying chronic medical issues, multifactorial --> Anemia w/u has been reviewed. --> no evidence of hemolysis is noted, peripheral smear has been reviewed --> hgb goal is >7, transfuse as needed --> currently remains stable, occult blood negative --> hgb 8.4->8.6 --> EPOGEN Started # Acute kidney injury r/o potential reversible component --> reviewed meds, those that are renally cleared removed --> as per renal recs, appreciated # Hypertension, essential --> sbp goal is <140, consider anti-htn as needed --> currently started on hyralazine 25mg po q6h prn sbp >140 # CHF - hx of CHF --> obtain a 2d echo per cards --> diuresis with lasix as needed --> cardiology recs appreciated #. Leukocytosis with underlying infectionv stress reaction HISTORY --> per id and better --> for infection, ABX ctx/vanc #. Bilateral lower extremity amputee, metatarsal several years ago #. Hyperkalemia -- kayxelate as needed #. Dvt ppx scds The time the note was entered does not necessarily correspond to the time the patient was seen. GREATLY APPRECIATE CONSULTATION. Subjective Constitutional: Denies: no symptoms, chills, diaphoresis, fever, malaise, weakness, other HEENT: Denies: no symptoms, eye pain, blurred vision, tearing, double vision, ear pain, ear discharge, nose pain, nose congestion, throat pain, throat swelling, mouth pain, mouth swelling, other Cardiovascular: Denies: no symptoms, chest pain, edema, irregular heart rate, lightheadedness, palpitations, syncope, other Respiratory: Denies: no symptoms, cough, orthopnea, shortness of breath, SOB with excertion, SOB at rest, sputum, stridor, wheezing, other Gastrointestinal/Abdominal: Denies: no symptoms, abdomen distended, abdominal pain, black stools, tarry stools, blood in stool, constipated, diarrhea, difficulty swallowing, nausea, poor appetite, poor fluid intake, rectal bleeding , vomiting, other Genitourinary: Denies: no symptoms, burning, discharge, frequency, flank pain, hematuria, incontinence, pain, urgency, other Neurologic/Psychiatric: Denies: no symptoms, anxiety, depressed, emotional problems, headache, numbness, paresthesia, pre-existing deficit, seizure, tingling, tremors, weakness, other Endocrine: Denies: no symptoms, excessive sweating, flushing, intolerance to cold, intolerance to heat, increased hunger, increased thirst, increased urine, unexplained weight gain, unexplained weight loss, other Allergies: Coded Allergies: PENICILLINS (Verified Allergy, Unknown, 12/11/18) Subjective 10/[address] Chang, to do best to avoid haldol, continue restraints, dw rn, on nc, feeling better Objective Last 24 Hour Vital Signs Date Time Temp Pulse Resp B/P (MAP) Pulse Ox O2 Delivery O2 Flow Rate FiO2 10/25/19 12:00 77 10/25/19 12:00 Nasal Cannula 2.0 10/25/19 12:00 2.0 10/25/19 12:00 98.2 80 22 154/59 (90) 99 10/25/19 10:52 85 160/58 10/25/19 10:05 184/66 10/25/19 09:06 84 184/76 10/25/19 08:00 2.0 10/25/19 08:00 Nasal Cannula 2.0 10/25/19 08:00 98.1 84 24 184/76 (112) 100 10/25/19 08:00 85 10/25/19 04:00 2.0 10/25/19 04:00 98.2 80 24 178/76 (110) 100 10/25/19 04:00 91 10/25/19 04:00 Nasal Cannula 2.0 10/25/19 00:00 77 10/25/19 00:00 Nasal Cannula 2.0 10/24/19 23:56 97.3 76 26 139/59 (85) 100 10/24/19 23:13 2.0 10/24/19 21:45 4.0 10/24/19 21:13 85 151/58 10/24/19 20:56 85 22 99 45 10/24/19 20:00 82 10/24/19 20:00 Bi-pap 10/24/19 20:00 30 10/24/19 20:00 97.9 79 24 151/58 (89) 100 10/24/19 19:29 81 24 100 45 10/24/19 16:58 80 10/24/19 16:00 Bi-pap 10/24/19 16:00 30 10/24/19 14:31 83 4 100 45 Intake and Output 10/24/19 10/25/19 19:00 07:00 Intake Total 550 ml 800 ml Output Total 400 ml 550 ml Balance 150 ml 250 ml Intake Oral 200 ml IV Total 550 ml 600 ml Output Urine Total 400 ml 550 ml # Bowel Movements 2 Laboratory Tests 10/25/19 04:12: White Blood Count 5.7, Red Blood Count 2.85L, Hemoglobin 8.6L, Hematocrit 28.6L , Mean Corpuscular Volume 100H, Mean Corpuscular Hemoglobin 30.1, Mean Corpuscular Hemoglobin Concent 30.1L, Red Cell Distribution Width 15.5H, Platelet Count 269, Mean Platelet Volume 6.5, Neutrophils (%) (Auto) 72.8, Lymphocytes (%) (Auto) 18.7L, Monocytes (%) (Auto) 6.7, Eosinophils (%) (Auto) 0.9, Basophils (%) (Auto) 0.9, Prothrombin Time 11.3, Prothromb Time International Ratio 1.0, Activated Partial Thromboplast Time 32, Sodium Level 139, Potassium Level 4.2, Chloride Level 105, Carbon Dioxide Level 24, Anion Gap 10, Blood Urea Nitrogen 75H, Creatinine 3.9H, Estimat Glomerular Filtration Rate 14.9, Glucose Level 180H, Uric Acid 4.2, Calcium Level 8.9, Phosphorus Level 6.9H, Magnesium Level 2.1, Iron Level 89, Total Iron Binding Capacity 252 , Percent Iron Saturation 35, Unsaturated Iron Binding 163, Ferritin 299, Total Bilirubin 0.3, Gamma Glutamyl Transpeptidase 38, Aspartate Amino Transf (AST/ SGOT) 41H, Alanine Aminotransferase (ALT/SGPT) 29, Alkaline Phosphatase 115, Troponin I 0.009, C-Reactive Protein, Quantitative 4.1H, Pro-B-Type Natriuretic Peptide 26341V, Total Protein 6.5, Albumin 2.6L, Globulin 3.9, Albumin/Globulin Ratio 0.7L, Cortisol AM Sample [Pending] 10/25/19 07:23: Arterial Blood pH 7.291L, Arterial Blood Partial Pressure CO2 39.5, Arterial Blood Partial Pressure O2 66.1L, Arterial Blood HCO3 18.6L, Arterial Blood Oxygen Saturation 91.6L, Arterial Blood Base Excess -7.4L, Kristian Test Positive 10/25/19 11:20: POC Whole Blood Glucose [Pending] Height (Feet): 5 Height (Inches): 8.00 Weight (Pounds): 165 Objective GENERAL: Not in acute distress. PULMONARY: Decreased breath sounds. Some crackles noted Right side. CARDIOVASCULAR: Regular rate. No S3 or S4. ABDOMEN: Soft, nontender, nondistended. EXTREMITIES: 1+ edema. No cyanosis, swelling, or edema. 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 Melvin Rizzo MD Oct 25, 2019 14:16
--- NOTE | 2019-10-25 14:22 | Infectious Diseases Prog Note ---
Assessment/Plan 79yo M from SNF who p/w hypoglycemia and resp failure: Acute hypoxic respiratory failure, on BiPAP> now on 2l NC Rapid COVID neg x2 (10/21, 10/24) Pneumonia on CXR Volume overload -10/24 sp cx p -10/23 CXR: 1. Small layering right pleural effusion, not significantly changed. The previously noted small left pleural effusion is not as evident.Prominent lung markings and haziness, right greater left, which may be related to pulmonary vascular congestion versus pneumonitis. This is not significantly changed.. Subsegmental atelectasis versus infiltrate in the medial left lung base, also not significantly changed. 10/21 CXR: 1. Small bilateral pleural effusions. Bibasilar atelectasis versus pneumonia. 2. Prominent lung markings and hazy opacities in right greater than left lungs may represent artifact versus pulmonary vasculature congestion and edema versus infectious/inflammatory process. Afebrile No leukocytosis Anemia to 6.8, improved UA neg, UCx neg R/o bacteremia 10/21 BCx NTD ALEXIS on CKD, improving Plan: Cont CTX 2g IV daily #2 for pneumonia Cont vancomycin IV #3 COVID neg x2; ok to dc isolation Obtain resp cx if able F/u BCx, UCx Trend resp status Monitor CBC, CMP D/w RN Thank you for this consult. [facility] will continue to follow. Subjective Allergies: Coded Allergies: PENICILLINS (Verified Allergy, Unknown, 12/11/18) afebrile at 2l NC now cr improving no leukocytosis Objective Last 24 Hour Vital Signs Date Time Temp Pulse Resp B/P (MAP) Pulse Ox O2 Delivery O2 Flow Rate FiO2 10/25/19 12:00 77 10/25/19 12:00 Nasal Cannula 2.0 10/25/19 12:00 2.0 10/25/19 12:00 98.2 80 22 154/59 (90) 99 10/25/19 10:52 85 160/58 10/25/19 10:05 184/66 10/25/19 09:06 84 184/76 10/25/19 08:00 2.0 10/25/19 08:00 Nasal Cannula 2.0 10/25/19 08:00 98.1 84 24 184/76 (112) 100 10/25/19 08:00 85 10/25/19 04:00 2.0 10/25/19 04:00 98.2 80 24 178/76 (110) 100 10/25/19 04:00 91 10/25/19 04:00 Nasal Cannula 2.0 10/25/19 00:00 77 10/25/19 00:00 Nasal Cannula 2.0 10/24/19 23:56 97.3 76 26 139/59 (85) 100 10/24/19 23:13 2.0 10/24/19 21:45 4.0 10/24/19 21:13 85 151/58 10/24/19 20:56 85 22 99 45 10/24/19 20:00 82 10/24/19 20:00 Bi-pap 10/24/19 20:00 30 10/24/19 20:00 97.9 79 24 151/58 (89) 100 10/24/19 19:29 81 24 100 45 10/24/19 16:58 80 10/24/19 16:00 Bi-pap 10/24/19 16:00 30 10/24/19 14:31 83 4 100 45 Height (Feet): 5 Height (Inches): 8.00 Weight (Pounds): 165 Gen: Older man, laying in bed on BiPAP, NAD Pulm: BL chest rise on BiPAP Abd: Obese, soft, NTND Ext: No c/c/e, 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 Complete 10/22/19 16:45 Nasopharynx SARS-CoV-2 RdRp Gene Assay - Final Complete 10/22/19 17:00 Urine,Clean Catch Urine Culture - Final NO GROWTH AFTER 48 HOURS Complete 10/22/19 18:00 Rectum - Final NO CARBAPENEM-RESISTANT ENTEROBACTERI... Complete 10/22/19 18:00 Rectum VRE Culture - Final NO VANCOMYCIN RESISTANT ENTEROCOCCUS ... Complete Laboratory Tests Test 10/25/19 04:12 10/25/19 07:23 10/25/19 11:20 White Blood Count 5.7 K/UL (4.8-10.8) Red Blood Count 2.85 M/UL (4.70-6.10) L Hemoglobin 8.6 G/DL (14.2-18.0) L Hematocrit 28.6 % (42.0-52.0) L Mean Corpuscular Volume 100 FL (80-99) H Mean Corpuscular Hemoglobin 30.1 PG (27.0-31.0) Mean Corpuscular Hemoglobin Concent 30.1 G/DL (32.0-36.0) L Red Cell Distribution Width 15.5 % (11.6-14.8) H Platelet Count 269 K/UL (150-450) Mean Platelet Volume 6.5 FL (6.5-10.1) Neutrophils (%) (Auto) 72.8 % (45.0-75.0) Lymphocytes (%) (Auto) 18.7 % (20.0-45.0) L Monocytes (%) (Auto) 6.7 % (1.0-10.0) Eosinophils (%) (Auto) 0.9 % (0.0-3.0) Basophils (%) (Auto) 0.9 % (0.0-2.0) Prothrombin Time 11.3 SEC (9.30-11.50) Prothromb Time International Ratio 1.0 (0.9-1.1) Activated Partial Thromboplast Time 32 SEC (23-33) Sodium Level 139 MMOL/L (136-145) Potassium Level 4.2 MMOL/L (3.5-5.1) Chloride Level 105 MMOL/L (98-107) Carbon Dioxide Level 24 MMOL/L (21-32) Anion Gap 10 mmol/L (5-15) Blood Urea Nitrogen 75 mg/dL (7-18) H Creatinine 3.9 MG/DL (0.55-1.30) H Estimat Glomerular Filtration Rate 14.9 mL/min (>60) Glucose Level 180 MG/DL (74-106) H Uric Acid 4.2 MG/DL (2.6-7.2) Calcium Level 8.9 MG/DL (8.5-10.1) Phosphorus Level 6.9 MG/DL (2.5-4.9) H Magnesium Level 2.1 MG/DL (1.8-2.4) Iron Level 89 ug/dL (50-175) Total Iron Binding Capacity 252 ug/dL (250-450) Percent Iron Saturation 35 % (15-50) Unsaturated Iron Binding 163 ug/dL (112-346) Ferritin 299 NG/ML (8-388) Total Bilirubin 0.3 MG/DL (0.2-1.0) Gamma Glutamyl Transpeptidase 38 U/L (5-85) Aspartate Amino Transf (AST/SGOT) 41 U/L (15-37) H Alanine Aminotransferase (ALT/SGPT) 29 U/L (12-78) Alkaline Phosphatase 115 U/L (46-116) Troponin I 0.009 ng/mL (0.000-0.056) C-Reactive Protein, Quantitative 4.1 mg/dL (0.00-0.90) H Pro-B-Type Natriuretic Peptide 32093 pg/mL (0-125) H Total Protein 6.5 G/DL (6.4-8.2) Albumin 2.6 G/DL (3.4-5.0) L Globulin 3.9 g/dL Albumin/Globulin Ratio 0.7 (1.0-2.7) L Cortisol AM Sample Pending Arterial Blood pH 7.291 (7.350-7.450) Arterial Blood Partial Pressure CO2 39.5 mmHg (35.0-45.0) Arterial Blood Partial Pressure O2 66.1 mmHg (75.0-100.0) L Arterial Blood HCO3 18.6 mmol/L (22.0-26.0) L Arterial Blood Oxygen Saturation 91.6 % (95-100) L Arterial Blood Base Excess -7.4 (-2-2) L Kristian Test Positive POC Whole Blood Glucose Pending Current Medications Medications (Trade) Dose Ordered Sig/Cammy Route PRN Reason Start Time Stop Time Status Last Admin Dose Admin Acetaminophen (Tylenol) 650 mg Q6H PRN ORAL Pain Scale (3-5) 10/24/19 07:00 11/23/19 06:59 Amlodipine Besylate (Norvasc) 5 mg DAILY ORAL 10/26/19 09:00 11/25/19 08:59 Atorvastatin Calcium (Lipitor) 10 mg BEDTIME ORAL 10/23/19 21:00 01/21/20 20:59 10/24/19 21:12 Carvedilol (Coreg) 12.5 mg EVERY 12 HOURS ORAL 10/25/19 21:00 11/23/19 20:59 Ceftriaxone Sodium 2 gm/ Dextrose 55 ml @ 110 mls/hr Q24H IVPB 10/24/19 12:00 10/31/19 11:59 10/25/19 12:39 Dextrose (Dextrose 50%) 25 ml Q30M PRN IV Hypoglycemia 10/22/19 21:45 01/20/20 21:44 Dextrose (Dextrose 50%) 50 ml Q30M PRN IV Hypoglycemia 10/22/19 21:45 01/20/20 21:44 10/23/19 05:14 Docusate Sodium (Colace) 100 mg TID ORAL 10/23/19 13:00 11/22/19 08:59 10/25/19 12:40 Epoetin William (Epoetin William-EPBX(NON ESRD)) 10,000 unit SUBQ 10/25/19 21:00 01/23/20 20:59 Gabapentin (Neurontin) 100 mg THREE TIMES A DAY ORAL 10/23/19 09:00 11/22/19 08:59 10/25/19 12:40 Hydralazine HCl (Apresoline) 10 mg Q4H PRN IV For High Blood Pressure 10/25/19 10:15 01/23/20 08:59 Levothyroxine Sodium (Synthroid) 50 mcg DAILY IV 10/24/19 14:00 11/23/19 13:59 10/25/19 09:06 Pantoprazole (Protonix) 40 mg EVERY 12 HOURS IVP 10/23/19 09:00 11/22/19 08:59 10/25/19 09:07 Rivaroxaban (Xarelto) 20 mg DAILY ORAL 10/23/19 09:00 01/21/20 08:59 10/25/19 09:07 Sennosides (Senokot) 8.6 mg HSPRN PRN ORAL Constipation 10/22/19 23:15 11/21/19 23:14 Sevelamer Carbonate (Renvela) 1,600 mg THREE TIMES A DAY ORAL 10/25/19 13:00 01/21/20 12:59 10/25/19 12:40 Sodium Bicarbonate 50 ml/ Dextrose 1,050 ml @ 50 mls/hr Q21H IV 10/24/19 14:00 11/23/19 13:59 10/25/19 10:52 Vancomycin HCl (Vanco pharmacy to dose) 1 ea DAILY PRN MISC Per rx protocol 10/22/19 22:15 11/21/19 22:14 Vitamin B Complex/ Vit C/Folic Acid (Nephrovite) 1 tab DAILY ORAL 10/23/19 09:00 11/22/19 08:59 10/25/19 09:06 Trinity Pan M.D. Oct 25, 2019 14:22
[2019-10-25 16:00] VITALS: BP 172/77
--- NOTE | 2019-10-25 16:15 | History and Physical Report ---
DATE OF ADMISSION: 10/22/2019 HISTORY OF PRESENT ILLNESS: This is one of several admissions to [facility] of this 79-year-old patient because of multiple problems that started as acute shortness of breath and discovery of hypoglycemia. The patient received glucagon and then D10W prior to his arrival here. Upon his arrival, he was found to have congestive heart failure and bilateral pneumonia and the patient was admitted. 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 Medically, known to have high blood pressure, diabetes mellitus, and chronic renal failure. On multiple occasions, he had hyperkalemia and was referred to the emergency room, but the patient refused. This issue has been resolved by Kayexalate in the facility over the last year. Medically, he is on beta-cristopher for his high blood pressure. He does not use insulin. He is on metformin and glimepiride, and his HbA1c in the facility was 7.1. ALLERGIES: The patient is allergic to penicillin. FAMILY HISTORY: Noncontributory. MEDICATIONS: The patient is on atorvastatin 10 mg daily. He was on Sevelamer carbonate 800 mg 3 times a day, allopurinol 300 mg daily, atenolol 100 mg daily, docusate sodium 100 mg daily, Xarelto 20 mg daily, vitamin B complex, gabapentin 100 mg t.i.d., pantoprazole 40 mg daily, Humulin sliding scale 50 mg daily. SOCIAL HISTORY: He is single. He was born in [place]. He has been retired for many years. Prior to the appearance of his total disability, he worked . HABITS: The patient did smoke 1 pack a day for 20 years. He denies drinking and denies use of illicit drugs. REVIEW OF SYSTEMS: Cardiovascular: The patient denies any chest pain, shortness of breath, palpitations, or dizziness. Pulmonary: The patient denied any cough, wheezing, or expectoration. Gastrointestinal: His appetite is moderate. His weight is stable. He has no dysphagia. His dyspepsia was controlled by pantoprazole. His bowel movements are normal and required the use of intermittent laxative. Genitourinary: The patient denies any dysuria, frequency, or incontinence. His nocturia is 2 times. Joint: The patient denies any pain, swelling, stiffness, cold extremities, photosensitivity, dry eyes, or alopecia. He did complain of peripheral neuropathy that was affecting diabetes and renal failure for which he was getting gabapentin. Central Nervous System: His sleep is of good quality. He has no numbness, tingling, seizure disorder, and has no headaches. PHYSICAL EXAMINATION: VITAL SIGNS: Blood pressure is 150/78, his pulse is 71, respirations 16, temperature 97.3. when his atenolol was discontinued. HEENT: Eyes were normal. Pupils were round, equal, and reactive to light. Sclerae were white. Conjunctivae was pink. Extraocular movements appear normal. Temporal arteries were palpable bilaterally with no bilateral temporal wasting. Visual fan to confrontation and neglect sign could not be assessed because of lack of patient cooperation. ENT: Mucous membranes were not dehydrated. Auditory canals were clear and tympanic membranes could not be visualized. The nasal cavity was not congested. Nasal septum was intact. Soft palate was free of ulcerations. Pharynx was clear from exudate or tonsillar hypertrophy. Uvula danial to phonation. Tongue was dry, midline, and normally papillated. Neck was supple. There was no goiter. No mass. No lymphadenopathy. There was no JVD. No bruits. Carotid upstroke was 1+. LUNGS: Clear. There were bilateral rhonchi at both bases only. HEART: PMI was fifth left intercostal space in midclavicular line. There was normal S1 and normal S2. There was no murmur. No arrhythmia. No S3. No S4. No pericardial rub. ABDOMEN: Soft and nontender without organomegaly. There were no masses palpable. Normal bowel sounds without bruits. There was no guarding. No rebound tenderness. No ascites. No hernia. No CVA tenderness. Liver and spleen was 8 cm, mostly nontender. EXTREMITIES: There was no cyanosis, clubbing, or edema. The surgical scar in both feet were healed. NEUROLOGICAL: Reflexes in biceps, triceps, and brachioradialis were present. Patellar retinaculum were present. Cranial nerves II through XII were symmetric and equal. Cerebellar function, there was no tremor. No nystagmus. No extrapyramidal rigidity. Sensory exam to pinprick, cotton touch, position, and motor sign could not be assessed because of the patient's agitation. LABORATORY AND DIAGNOSTIC DATA: Hemoglobin is 6.8, hematocrit 23.6 with MCV of 102, WBC of 8.4, and platelets 228. His sedimentation rate was 83. His BUN was 81 and creatinine was 4.4. Sodium is 139, potassium 5.4, chloride 100, and CO2 was 19. The patient received Kayexalate in the emergency room. His glucose was 125. Glimepiride, metformin, and Actos have been discontinued. The patient sliding scale regular insulin of moderate intensity. His A1c was pending. His urinalysis shows 3+ protein, 1+ ketone, 5+ blood, rbc was 20 to 40, wbc was 2 to 4, was negative, and leukocyte esterase was 1+. His INR was 0.9. His PTT was 29. His ABG, pH was 7.16, pCO2 was 56, pO2 was 75, and bicarb was 17. Following administration of bicarb, his danial to 7.22, pCO2 was 45, pO2 was 179, and bicarb was 14, bicarb was ordered given. His COVID-19 was negative. His urine culture showed no growth. His chest x-ray showed bilateral pleural effusion, bibasilar atelectasis, increase in vascular markings that may represent congestive heart failure and the possibility of pneumonia was not completely erased. PLAN: high lighter to start Epogen 10,000 units Friday, Friday, and Friday. The patient also received gluconate IV 200 mg. He is on allopurinol 300 mg daily, Xarelto 20 mg daily, spironolactone 25 mg daily, pantoprazole 40 mg daily, and vitamin D 5000 units. Nephrology quality improvement consultant and Pulmonary quality improvement consultant will be contacted in the management of this case, managing of his hyperkalemia, congestive heart failure, and metabolic acidosis. repeat laboratory tests will be done in the a.m. Ayush Chang M.D. DR: Janes JOB#: [id number] CC:
[2019-10-25 16:55] VITALS: BP 124/51
[2019-10-25] MEDS ORDERED: D5NS 1000ml IV ONE (17:16)
[2019-10-25] MEDS ORDERED: Tubing IV Secondary IV ONE ×2 (17:16→17:18)
[2019-10-25 20:00] VITALS: BP 163/59
[2019-10-25] MEDS: Carvedilol 12.5mg tab ORAL SCH (20:47)
[2019-10-25] MEDS ORDERED: Epoetin Alfa-EPBX (NON ESRD) 2000 units/ml vial SUBQ SCH (21:00)
[2019-10-25] MEDS ORDERED: Epoetin Alfa-EPBX (NON ESRD)10,000 unit/ml vial SUBQ SCH (21:00)
[2019-10-25] MEDS ORDERED: Epoetin Alfa-EPBX (NON ESRD)4000 units/ml vial SUBQ SCH (21:00)
[2019-10-25] MEDS ORDERED: Haloperidol 5mg/ml Inj IM PRN (23:00)
[2019-10-26] VITALS: BP 146/79
--- NOTE | 2019-10-26 | Consultation ---
DATE OF CONSULTATION: 10/25/2019 CONSULTING PHYSICIAN: Dada Finch MD. HISTORY OF PRESENT ILLNESS: This is an 79-year-old male with a history of dementia as well as multiple medical issues who has been admitted to the hospital. Patient is easily agitated and is confused. He is on bilateral soft restraints. He has bilateral lower extremity amputation to toes of both feet. Patient has a history of noncompliance. Patient is unable to understand, process, communicate rationally, and is confused. For agitation, patient has been given Haldol, which is a less sedative medication for agitation. PAST PSYCHIATRIC HISTORY: Dementia with behavior disturbance, psychotic disorder. PAST MEDICAL HISTORY: Significant for diabetes mellitus, hypertension, anemia, CHF, cellulitis. ALLERGIES: Penicillin. SUBSTANCE USE HISTORY: No known history of illicit drug use or alcohol. MENTAL STATUS EXAMINATION: Patient is awake, confused, and disoriented. Mood is agitated. Affect is flat. Thought process, there is a paucity of thought content. Thought content, no suicidal or homicidal ideation. Cognition is impaired. Insight and judgment impaired. ASSESSMENT: 1. Dementia with behavior disturbance. 2. Acute encephalopathy. PLAN: 1. We will continue the Haldol IM as it is not suppressing the other antipsychotics. 2. Discussed with the nurse. Dada Finch M.D. DR: TRINH JOB#: [id number] CC:
[2019-10-26 04:00] VITALS: BP 133/61
[2019-10-26 04:56] LABS: BASOPHILS % (AUTO) 0.8 % (0.0-2.0); EOSINOPHILS % (AUTO) 2.1 % (0.0-3.0); HEMATOCRIT 26.6 % (42.0-52.0); HEMOGLOBIN 8.3 G/DL (14.2-18.0); LYMPHOCYTES % (AUTO) 13.8 % (20.0-45.0); MEAN CORPUSCULAR VOLUME 99 FL (80-99); MONOCYTES % (AUTO) 7.1 % (1.0-10.0); NEUTROPHILS % (AUTO) 76.2 % (45.0-75.0); PLATELET COUNT 253 K/UL (150-450); RED BLOOD COUNT 2.68 M/UL (4.70-6.10); RED CELL DISTRIBUTION WIDTH 15.1 % (11.6-14.8); WHITE BLOOD COUNT 5.8 K/UL (4.8-10.8)
[2019-10-26 05:42] LABS: ALANINE AMINOTRANSFERASE 22 U/L (12-78); ALBUMIN 2.3 G/DL (3.4-5.0); ALBUMIN/GLOBULIN RATIO 0.6 (1.0-2.7); ALKALINE PHOSPHATASE 102 U/L (46-116); ANION GAP 9 mmol/L (5-15); ASPARTATE AMINO TRANSFERASE 34 U/L (15-37); BILIRUBIN,TOTAL 0.2 MG/DL (0.2-1.0); BLOOD UREA NITROGEN 77 mg/dL (7-18); CARBON DIOXIDE 24 MMOL/L (21-32); CHLORIDE 106 MMOL/L (98-107); CREATININE 3.7 MG/DL (0.55-1.30); POTASSIUM 3.8 MMOL/L (3.5-5.1); SODIUM 139 MMOL/L (136-145)
[2019-10-26 06:40] LABS: PHOSPHORUS 6.2 MG/DL (2.5-4.9)
[2019-10-26 08:00] VITALS: BP 169/100
[2019-10-26] MEDS: Pantoprazole Inj IVP SCH ×2 (08:53→21:11)
[2019-10-26] MEDS: Sodium Bicarbonate 50 ML in D5W 1000ml 1,000 ML IV SCH (08:53)
[2019-10-26] MEDS: Docusate 100mg cap ORAL SCH ×3 (08:54→17:48)
[2019-10-26] MEDS: Carvedilol 12.5mg tab ORAL SCH ×2 (08:54→21:11)
[2019-10-26] MEDS: Xarelto 10mg tab ORAL SCH (08:54)
[2019-10-26] MEDS: Nephrovite tab (Rena-Vite) ORAL SCH (08:55)
[2019-10-26] MEDS ORDERED: Vancomycin 1gm/D5W 275ml IVPB ONE ×2 (10:00)
--- NOTE | 2019-10-26 10:08 | Pulmonology Progress Note ---
Reema Hanna PIPE TURNER 10/26/19 1008: Subjective ROS Limited/Unobtainable: No Allergies: Coded Allergies: PENICILLINS (Verified Allergy, Unknown, 10/25/19) tolerated Ceftriaxone Subjective intermittently on o2 via NC and RA denies CP, SOB, cough BP elevated remans afebrile, no leukocytosis creat slowly trending down Objective Last 24 Hour Vital Signs Date Time Temp Pulse Resp B/P (MAP) Pulse Ox O2 Delivery O2 Flow Rate FiO2 10/26/19 08:54 76 169/120 10/26/19 08:54 76 169/120 10/26/19 08:00 77 10/26/19 04:00 Room Air 10/26/19 04:00 97.4 73 18 133/61 (85) 97 10/26/19 03:30 75 10/26/19 01:20 74 10/26/19 00:00 Nasal Cannula 2.0 10/26/19 00:00 97.5 93 16 146/79 (101) 100 10/25/19 23:33 87 10/25/19 20:47 79 149/69 10/25/19 20:00 Nasal Cannula 2.0 10/25/19 20:00 2.0 10/25/19 20:00 97.5 79 16 163/59 (93) 99 10/25/19 19:02 79 10/25/19 16:55 124/51 (75) 10/25/19 16:12 172/77 10/25/19 16:00 Nasal Cannula 2.0 10/25/19 16:00 81 10/25/19 16:00 98.3 73 16 172/77 (108) 99 10/25/19 16:00 2.0 10/25/19 12:00 77 10/25/19 12:00 Nasal Cannula 2.0 10/25/19 12:00 2.0 10/25/19 12:00 98.2 80 22 154/59 (90) 99 10/25/19 10:52 85 160/58 10/25/19 10:05 184/66 Intake and Output 10/25/19 10/26/19 19:00 07:00 Intake Total 905 ml 800 ml Output Total 420 ml 480 ml Balance 485 ml 320 ml Intake Oral 300 ml 200 ml IV Total 605 ml 600 ml Output Urine Total 420 ml 480 ml Objective General Appearance: no apparent distress, Hebrew speaking confused male, Lines, tubes and drains: peripheral HEENT: normocephalic, atraumatic, anicteric, mucous membranes moist, O2 via NC Respiratory/Chest: other - few scattered rhonchi Cardiovascular/Chest: normal rate, regular rhythm Abdomen: normal bowel sounds, non tender, soft Extremities: partially amputated BL foot Skin Exam: warm/dry Neurologic: abnormal gait, alert, oriented , confused Musculoskeletal: atrophy - BLE Microbiology Date/Time Source Procedure Growth Status 10/25/19 09:00 Nasopharynx SARS-CoV-2 RdRp Gene Assay - Final Complete Laboratory Tests 10/25/19 11:20: POC Whole Blood Glucose [Pending] 10/25/19 16:54: POC Whole Blood Glucose [Pending] 10/25/19 21:41: POC Whole Blood Glucose [Pending] 10/26/19 04:11: White Blood Count 5.8, Red Blood Count 2.68L, Hemoglobin 8.3L, Hematocrit 26.6L , Mean Corpuscular Volume 99, Mean Corpuscular Hemoglobin 30.8, Mean Corpuscular Hemoglobin Concent 31.0L, Red Cell Distribution Width 15.1H, Platelet Count 253, Mean Platelet Volume 6.6, Neutrophils (%) (Auto) 76.2H, Lymphocytes (%) (Auto) 13.8L, Monocytes (%) (Auto) 7.1, Eosinophils (%) (Auto) 2.1, Basophils (%) (Auto) 0.8, Sodium Level 139, Potassium Level 3.8, Chloride Level 106, Carbon Dioxide Level 24, Anion Gap 9, Blood Urea Nitrogen 77H, Creatinine 3.7H, Estimat Glomerular Filtration Rate 15.8, Glucose Level 202H, Uric Acid 4.5, Calcium Level 9.0, Phosphorus Level 6.2H, Magnesium Level 2.0, Total Bilirubin 0.2, Aspartate Amino Transf (AST/SGOT) 34, Alanine Aminotransferase (ALT/SGPT) 22, Alkaline Phosphatase 102, C-Reactive Protein, Quantitative 3.2H, Pro-B-Type Natriuretic Peptide > [id number], Total Protein 5.9L, Albumin 2.3L, Globulin 3.6, Albumin/Globulin Ratio 0.6L, Random Vancomycin Level 13.8 10/26/19 05:05: POC Whole Blood Glucose 169H Current Medications Medications (Trade) Dose Ordered Sig/Cammy Route PRN Reason Start Time Stop Time Status Last Admin Dose Admin Acetaminophen (Tylenol) 650 mg Q6H PRN ORAL Pain Scale (3-5) 10/24/19 07:00 11/23/19 06:59 Amlodipine Besylate (Norvasc) 5 mg DAILY ORAL 10/26/19 09:00 11/25/19 08:59 10/26/19 08:54 Atorvastatin Calcium (Lipitor) 10 mg BEDTIME ORAL 10/23/19 21:00 01/21/20 20:59 10/25/19 20:47 Carvedilol (Coreg) 12.5 mg EVERY 12 HOURS ORAL 10/25/19 21:00 11/23/19 20:59 10/26/19 08:54 Ceftriaxone Sodium 2 gm/ Dextrose 55 ml @ 110 mls/hr Q24H IVPB 10/24/19 12:00 10/31/19 11:59 10/25/19 12:39 Dextrose (Dextrose 50%) 25 ml Q30M PRN IV Hypoglycemia 10/22/19 21:45 01/20/20 21:44 Dextrose (Dextrose 50%) 50 ml Q30M PRN IV Hypoglycemia 10/22/19 21:45 01/20/20 21:44 10/23/19 05:14 Docusate Sodium (Colace) 100 mg TID ORAL 10/23/19 13:00 11/22/19 08:59 10/26/19 08:54 Epoetin William (Epoetin William-EPBX(NON ESRD)) 2,000 unit -FRI SUBQ 10/25/19 21:00 01/23/20 20:59 10/25/19 20:50 Epoetin William (Epoetin William-EPBX(NON ESRD)) 8,000 unit FRI-FRI-FRI SUBQ 10/25/19 21:00 01/23/20 20:59 10/25/19 20:50 Gabapentin (Neurontin) 100 mg THREE TIMES A DAY ORAL 10/23/19 09:00 11/22/19 08:59 10/26/19 08:54 Haloperidol (Haldol) 5 mg Q12HR PRN ORAL Agitation 10/26/19 07:15 12/10/19 07:14 10/26/19 09:01 Haloperidol Lactate (Haldol) 5 mg Q6H PRN IM Agitation 10/25/19 23:00 12/09/19 22:59 Hydralazine HCl (Apresoline) 10 mg Q4H PRN IV For High Blood Pressure 10/25/19 10:15 01/23/20 08:59 10/25/19 16:12 Levothyroxine Sodium (Synthroid) 50 mcg DAILY IV 10/24/19 14:00 11/23/19 13:59 10/26/19 09:01 Pantoprazole (Protonix) 40 mg EVERY 12 HOURS IVP 10/23/19 09:00 11/22/19 08:59 10/26/19 08:53 Rivaroxaban (Xarelto) 20 mg DAILY ORAL 10/23/19 09:00 01/21/20 08:59 10/26/19 08:54 Sennosides (Senokot) 8.6 mg HSPRN PRN ORAL Constipation 10/22/19 23:15 11/21/19 23:14 Sevelamer Carbonate (Renvela) 1,600 mg THREE TIMES A DAY ORAL 10/25/19 13:00 01/21/20 12:59 10/26/19 08:54 Sodium Bicarbonate 50 ml/ Dextrose 1,050 ml @ 50 mls/hr Q21H IV 10/24/19 14:00 11/23/19 13:59 10/26/19 08:53 Vancomycin HCl (Vanco pharmacy to dose) 1 ea DAILY PRN MISC Per rx protocol 10/22/19 22:15 11/21/19 22:14 Vancomycin HCl 1 gm/Dextrose 275 ml @ 183.708 mls/hr ONCE ONCE IVPB 10/26/19 10:00 10/26/19 11:29 Vitamin B Complex/ Vit C/Folic Acid (Nephrovite) 1 tab DAILY ORAL 10/23/19 09:00 11/22/19 08:59 10/26/19 08:55 Assessment/Plan Assessment/Plan ASSESSMENT Acute hypoxemic hypercapnic respiratory failure requiring BiPAP Acute metabolic encephalopathy likely due to hypoglycemia Diabetes mellitus with initial hypoglycemia Probably pneumonia Acute kidney injury on chronic kidney disease Severe anemia requiring blood transfusion Metabolic acidosis Electrolyte imbalance :hyponatremia, hyperkalemia HTN with HTN urgency PLAN OF CARE TOYIN off BiPAP now on O2 via NC intermittently as well as RA hypercapnia resolved titrate FiO2 to keep sat > 90% pulm toilet 10/21 and 10/24 rapid COVID NGT, CXR 10/23 -> 1. Small layering right pleural effusion, not significantly changed. The previously noted small left pleural effusion is not as evident. 2. Prominent lung markings and haziness, right greater left, which may be related to pulmonary vascular congestion versus pneumonitis. This is not significantly changed. 3. Subsegmental atelectasis versus infiltrate in the medial left lung base, also not significantly changed. BiPAP prn empiric abx as per ID recs -> Ceftriaxone and Vanco BCX 10/21 NGTD UCX NGT SCX if able ECHO with pEF 55-60% Venous Duplex BLE on chronic a/c with Xarelto ?unclear reason monitor volumes swallow eval aspiration precautions gentle IV dextrose with bicarb, monitor acid base status , ABG in am HgA1c -6.1 hold oral anti-glycemic SSI prn ; recommend sensitive SSI AMS was most likely due to episode of hypoglycemia CT head NGT for acute ICP renal US avoid nephrotoxic s/p Kayexalate and sodium bicarb Na and K corrected, bicarb OK fup with nephro recommendation creat slowly trending down BP management with CCB and Hydralazine prn for BP spsikes monitor HH with goal to keep Hgb above 7 stool OB anemia w/up s/p 1 dose of Venofer now on EPO as per nephro rec GI prophayxlis supportive care thanks for a consult! case discussed and evaluated by supervising physician Leoncio Galan MD 10/26/19 1650: Subjective Allergies: Coded Allergies: PENICILLINS (Verified Allergy, Unknown, 10/25/19) tolerated Ceftriaxone Assessment/Plan Assessment/Plan Patient seen and examined with PIPE TURNER. Agree with above A&P as it reflects our joint deliberations. Reema Hanna PIPE TURNER Oct 26, 2019 10:08 Leoncio Galan MD Oct 26, 2019 16:50
--- NOTE | 2019-10-26 11:41 | General Progress Note ---
Assessment/Plan Assessment/Plan: Covering Dr. Chang ASSESSMENT AND RECOMMENDATIONS: # Anemia of chronic disease due to underlying chronic medical issues, multifactorial --> Anemia w/u has been reviewed. --> no evidence of hemolysis is noted, peripheral smear has been reviewed --> hgb goal is >7, transfuse as needed --> currently remains stable, occult blood negative --> hgb 8.4->8.6->8.3 --> EPOGEN Started # Acute kidney injury r/o potential reversible component --> reviewed meds, those that are renally cleared removed --> as per renal recs, appreciated # Hypertension, essential --> sbp goal is <140, consider anti-htn as needed --> currently started on hyralazine 25mg po q6h prn sbp >140 # CHF - hx of CHF --> obtain a 2d echo per cards --> diuresis with lasix as needed --> cardiology recs appreciated #. Leukocytosis with underlying infectionv stress reaction HISTORY --> per id and better --> for infection, ABX ctx/vanc #. Bilateral lower extremity amputee, metatarsal several years ago #. Hyperkalemia -- kayxelate as needed #. Dvt ppx scds The time the note was entered does not necessarily correspond to the time the patient was seen. GREATLY APPRECIATE CONSULTATION. Subjective HEENT: Denies: no symptoms, eye pain, blurred vision, tearing, double vision, ear pain, ear discharge, nose pain, nose congestion, throat pain, throat swelling, mouth pain, mouth swelling, other Cardiovascular: Denies: no symptoms, chest pain, edema, irregular heart rate, lightheadedness, palpitations, syncope, other Respiratory: Denies: no symptoms, cough, orthopnea, shortness of breath, SOB with excertion, SOB at rest, sputum, stridor, wheezing, other Gastrointestinal/Abdominal: Denies: no symptoms, abdomen distended, abdominal pain, black stools, tarry stools, blood in stool, constipated, diarrhea, difficulty swallowing, nausea, poor appetite, poor fluid intake, rectal bleeding , vomiting, other Genitourinary: Denies: no symptoms, burning, discharge, frequency, flank pain, hematuria, incontinence, pain, urgency, other Neurologic/Psychiatric: Denies: no symptoms, anxiety, depressed, emotional problems, headache, numbness, paresthesia, pre-existing deficit, seizure, tingling, tremors, weakness, other Endocrine: Denies: no symptoms, excessive sweating, flushing, intolerance to cold, intolerance to heat, increased hunger, increased thirst, increased urine, unexplained weight gain, unexplained weight loss, other Hematologic/Lymphatic: Denies: no symptoms, anemia, easy bleeding, easy bruising, other Allergies: Coded Allergies: PENICILLINS (Verified Allergy, Unknown, 10/25/19) tolerated Ceftriaxone Subjective 10/[address] Chang, to do best to avoid haldol, continue restraints, jag rn, on nc, feeling better 10/25 still with some agitation overnight, meds reviewed, jag rn, haldol given in AM Objective Last 24 Hour Vital Signs Date Time Temp Pulse Resp B/P (MAP) Pulse Ox O2 Delivery O2 Flow Rate FiO2 10/26/19 08:54 76 169/120 10/26/19 08:54 76 169/120 10/26/19 08:00 Room Air 10/26/19 08:00 97.0 76 18 169/100 (123) 99 10/26/19 08:00 77 10/26/19 04:00 Room Air 10/26/19 04:00 97.4 73 18 133/61 (85) 97 10/26/19 03:30 75 10/26/19 01:20 74 10/26/19 00:00 Nasal Cannula 2.0 10/26/19 00:00 97.5 93 16 146/79 (101) 100 10/25/19 23:33 87 10/25/19 20:47 79 149/69 10/25/19 20:00 Nasal Cannula 2.0 10/25/19 20:00 2.0 10/25/19 20:00 97.5 79 16 163/59 (93) 99 10/25/19 19:02 79 10/25/19 16:55 124/51 (75) 10/25/19 16:12 172/77 10/25/19 16:00 Nasal Cannula 2.0 10/25/19 16:00 81 10/25/19 16:00 98.3 73 16 172/77 (108) 99 10/25/19 16:00 2.0 10/25/19 12:00 77 10/25/19 12:00 Nasal Cannula 2.0 10/25/19 12:00 2.0 10/25/19 12:00 98.2 80 22 154/59 (90) 99 Intake and Output 10/25/19 10/26/19 19:00 07:00 Intake Total 905 ml 800 ml Output Total 420 ml 480 ml Balance 485 ml 320 ml Intake Oral 300 ml 200 ml IV Total 605 ml 600 ml Output Urine Total 420 ml 480 ml Laboratory Tests 10/25/19 16:54: POC Whole Blood Glucose [Pending] 10/25/19 21:41: POC Whole Blood Glucose [Pending] 10/26/19 04:11: White Blood Count 5.8, Red Blood Count 2.68L, Hemoglobin 8.3L, Hematocrit 26.6L , Mean Corpuscular Volume 99, Mean Corpuscular Hemoglobin 30.8, Mean Corpuscular Hemoglobin Concent 31.0L, Red Cell Distribution Width 15.1H, Platelet Count 253, Mean Platelet Volume 6.6, Neutrophils (%) (Auto) 76.2H, Lymphocytes (%) (Auto) 13.8L, Monocytes (%) (Auto) 7.1, Eosinophils (%) (Auto) 2.1, Basophils (%) (Auto) 0.8, Sodium Level 139, Potassium Level 3.8, Chloride Level 106, Carbon Dioxide Level 24, Anion Gap 9, Blood Urea Nitrogen 77H, Creatinine 3.7H, Estimat Glomerular Filtration Rate 15.8, Glucose Level 202H, Uric Acid 4.5, Calcium Level 9.0, Phosphorus Level 6.2H, Magnesium Level 2.0, Total Bilirubin 0.2, Aspartate Amino Transf (AST/SGOT) 34, Alanine Aminotransferase (ALT/SGPT) 22, Alkaline Phosphatase 102, C-Reactive Protein, Quantitative 3.2H, Pro-B-Type Natriuretic Peptide > 28190P, Total Protein 5.9L, Albumin 2.3L, Globulin 3.6, Albumin/Globulin Ratio 0.6L, Random Vancomycin Level 13.8 10/26/19 05:05: POC Whole Blood Glucose 169H Height (Feet): 5 Height (Inches): 8.00 Weight (Pounds): 187 Objective GENERAL: Not in acute distress. PULMONARY: Decreased breath sounds. Some crackles noted Right side. CARDIOVASCULAR: Regular rate. No S3 or S4. ABDOMEN: Soft, nontender, nondistended. EXTREMITIES: 1+ edema. No cyanosis, swelling, or edema. 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 Melvin Rizzo MD Oct 26, 2019 11:41
[2019-10-26 12:00] VITALS: BP 157/79
[2019-10-26] MEDS: cefTRIAXone 2 GM in D5W 55 ML IVPB SCH (12:39)
[2019-10-26] MEDS ORDERED: Haloperidol 5mg/ml Inj IM PRN (12:57)
[2019-10-26] MEDS ORDERED: Sennosides 8.6mg tab ORAL PRN (12:58)
--- NOTE | 2019-10-26 13:22 | Diagnostic Imaging Report ---
EXAM: ULTRASOUND Venous Duplex Scan Carter Leg CLINICAL HISTORY: Leg pain and edema. COMPARISON: None TECHNIQUE: Doppler examination include grayscale images obtained with and without compression, and color and spectral doppler analysis. FINDINGS: Doppler examination shows normal spontaneity, phasicity, compressibility in the bilateral lower extremities. There is no thrombus identified by grayscale. Normal color and spectral flow is identified. There is no evidence of valvular incompetency or insufficiency. IMPRESSION: UNREMARKABLE VENOUS DUPLEX.
--- NOTE | 2019-10-26 13:33 | Infectious Diseases Prog Note ---
Assessment/Plan 79yo M from SNF who p/w hypoglycemia and resp failure: Acute hypoxic respiratory failure, on BiPAP> now on 2l NC> RA Rapid COVID neg x2 (10/21, 10/24) Pneumonia on CXR Volume overload -10/24 sp cx p -10/23 CXR: 1. Small layering right pleural effusion, not significantly changed. The previously noted small left pleural effusion is not as evident.Prominent lung markings and haziness, right greater left, which may be related to pulmonary vascular congestion versus pneumonitis. This is not significantly changed.. Subsegmental atelectasis versus infiltrate in the medial left lung base, also not significantly changed. 10/21 CXR: 1. Small bilateral pleural effusions. Bibasilar atelectasis versus pneumonia. 2. Prominent lung markings and hazy opacities in right greater than left lungs may represent artifact versus pulmonary vasculature congestion and edema versus infectious/inflammatory process. Afebrile No leukocytosis Anemia to 6.8, improved UA neg, UCx neg R/o bacteremia 10/21 BCx NTD ALEXIS on CKD, improving Plan: Cont CTX 2g IV daily #3 for pneumonia Cont vancomycin IV #4 COVID neg x2; F/u sp cx Trend resp status Monitor CBC, CMP D/w RN Thank you for this consult. [facility] will continue to follow. Subjective Allergies: Coded Allergies: PENICILLINS (Verified Allergy, Unknown, 10/25/19) tolerated Ceftriaxone afebrile at no leukocytosis Objective Last 24 Hour Vital Signs Date Time Temp Pulse Resp B/P (MAP) Pulse Ox O2 Delivery O2 Flow Rate FiO2 10/26/19 08:54 76 169/120 10/26/19 08:54 76 169/120 10/26/19 08:00 Room Air 10/26/19 08:00 97.0 76 18 169/100 (123) 99 10/26/19 08:00 77 10/26/19 04:00 Room Air 10/26/19 04:00 97.4 73 18 133/61 (85) 97 10/26/19 03:30 75 10/26/19 01:20 74 10/26/19 00:00 Nasal Cannula 2.0 10/26/19 00:00 97.5 93 16 146/79 (101) 100 10/25/19 23:33 87 10/25/19 20:47 79 149/69 10/25/19 20:00 Nasal Cannula 2.0 10/25/19 20:00 2.0 10/25/19 20:00 97.5 79 16 163/59 (93) 99 10/25/19 19:02 79 10/25/19 16:55 124/51 (75) 10/25/19 16:12 172/77 10/25/19 16:00 Nasal Cannula 2.0 10/25/19 16:00 81 10/25/19 16:00 98.3 73 16 172/77 (108) 99 10/25/19 16:00 2.0 Height (Feet): 5 Height (Inches): 8.00 Weight (Pounds): 187 Gen: Older man, NAD Pulm: BL chest rise Abd: Obese, soft, NTND Ext: No c/c/e, 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 Microbiology Date/Time Source Procedure Growth Status 10/25/19 09:00 Nasopharynx SARS-CoV-2 RdRp Gene Assay - Final Complete Laboratory Tests Test 10/25/19 16:54 10/25/19 21:41 10/26/19 04:11 10/26/19 05:05 POC Whole Blood Glucose Pending Pending 169 MG/DL (74-106) H White Blood Count 5.8 K/UL (4.8-10.8) Red Blood Count 2.68 M/UL (4.70-6.10) L Hemoglobin 8.3 G/DL (14.2-18.0) L Hematocrit 26.6 % (42.0-52.0) L Mean Corpuscular Volume 99 FL (80-99) Mean Corpuscular Hemoglobin 30.8 PG (27.0-31.0) Mean Corpuscular Hemoglobin Concent 31.0 G/DL (32.0-36.0) L Red Cell Distribution Width 15.1 % (11.6-14.8) H Platelet Count 253 K/UL (150-450) Mean Platelet Volume 6.6 FL (6.5-10.1) Neutrophils (%) (Auto) 76.2 % (45.0-75.0) H Lymphocytes (%) (Auto) 13.8 % (20.0-45.0) L Monocytes (%) (Auto) 7.1 % (1.0-10.0) Eosinophils (%) (Auto) 2.1 % (0.0-3.0) Basophils (%) (Auto) 0.8 % (0.0-2.0) Sodium Level 139 MMOL/L (136-145) Potassium Level 3.8 MMOL/L (3.5-5.1) Chloride Level 106 MMOL/L (98-107) Carbon Dioxide Level 24 MMOL/L (21-32) Anion Gap 9 mmol/L (5-15) Blood Urea Nitrogen 77 mg/dL (7-18) H Creatinine 3.7 MG/DL (0.55-1.30) H Estimat Glomerular Filtration Rate 15.8 mL/min (>60) Glucose Level 202 MG/DL (74-106) H Uric Acid 4.5 MG/DL (2.6-7.2) Calcium Level 9.0 MG/DL (8.5-10.1) Phosphorus Level 6.2 MG/DL (2.5-4.9) H Magnesium Level 2.0 MG/DL (1.8-2.4) Total Bilirubin 0.2 MG/DL (0.2-1.0) Aspartate Amino Transf (AST/SGOT) 34 U/L (15-37) Alanine Aminotransferase (ALT/SGPT) 22 U/L (12-78) Alkaline Phosphatase 102 U/L (46-116) C-Reactive Protein, Quantitative 3.2 mg/dL (0.00-0.90) H Pro-B-Type Natriuretic Peptide > 02549 pg/mL (0-125) H Total Protein 5.9 G/DL (6.4-8.2) L Albumin 2.3 G/DL (3.4-5.0) L Globulin 3.6 g/dL Albumin/Globulin Ratio 0.6 (1.0-2.7) L Random Vancomycin Level 13.8 ug/mL Test 10/26/19 11:34 POC Whole Blood Glucose Pending Current Medications Medications (Trade) Dose Ordered Sig/Cammy Route PRN Reason Start Time Stop Time Status Last Admin Dose Admin Acetaminophen (Tylenol) 650 mg Q6H PRN ORAL Pain Scale (3-5) 10/26/19 13:00 11/23/19 06:59 Amlodipine Besylate (Norvasc) 5 mg DAILY ORAL 10/27/19 09:00 9/3/20 08:59 Atorvastatin Calcium (Lipitor) 10 mg BEDTIME ORAL 10/26/19 21:00 01/21/20 20:59 Carvedilol (Coreg) 12.5 mg EVERY 12 HOURS ORAL 10/26/19 21:00 11/23/19 20:59 Ceftriaxone Sodium 2 gm/ Dextrose 55 ml @ 110 mls/hr Q24H IVPB 10/27/19 12:00 10/31/19 11:59 Dextrose (Dextrose 50%) 25 ml Q30M PRN IV Hypoglycemia 10/26/19 13:15 01/20/20 21:44 Dextrose (Dextrose 50%) 50 ml Q30M PRN IV Hypoglycemia 10/26/19 13:15 01/20/20 21:44 Docusate Sodium (Colace) 100 mg TID ORAL 10/26/19 18:00 11/22/19 17:59 Epoetin [place] (Epoetin William-EPBX(NON ESRD)) 2,000 unit SUBQ 10/27/19 21:00 01/23/20 20:59 Epoetin William (Epoetin William-EPBX(NON ESRD)) 8,000 unit FRI- SUBQ 10/27/19 21:00 01/23/20 20:59 Gabapentin (Neurontin) 100 mg THREE TIMES A DAY ORAL 10/26/19 18:00 11/22/19 17:59 Haloperidol (Haldol) 5 mg Q12H PRN ORAL Agitation 10/26/19 12:57 12/10/19 12:56 Haloperidol Lactate (Haldol) 5 mg Q6H PRN IM Agitation 10/26/19 12:57 12/10/19 12:56 Hydralazine HCl (Apresoline) 10 mg Q4H PRN IV For High Blood Pressure 10/26/19 13:07 01/24/20 13:06 Levothyroxine Sodium (Synthroid) 50 mcg DAILY IV 10/27/19 09:00 11/23/19 13:59 Pantoprazole (Protonix) 40 mg EVERY 12 HOURS IVP 10/26/19 21:00 11/22/19 08:59 Rivaroxaban (Xarelto) 20 mg DAILY ORAL 10/27/19 09:00 01/21/20 08:59 Sennosides (Senokot) 8.6 mg HSPRN PRN ORAL Constipation 10/26/19 12:58 11/25/19 12:57 Sevelamer Carbonate (Renvela) 1,600 mg THREE TIMES A DAY ORAL 10/26/19 18:00 01/21/20 17:59 Sodium Bicarbonate 50 ml/ Dextrose 1,050 ml @ 50 mls/hr Q21H IV 10/24/19 14:00 10/27/19 04:59 10/26/19 08:53 Sodium Bicarbonate 50 ml/ Dextrose 1,050 ml @ 50 mls/hr Q21H IV 10/27/19 05:00 11/26/19 04:59 Vancomycin HCl ([facility] pharmacy to dose) 1 ea DAILY PRN MISC Per rx protocol 10/27/19 09:00 11/21/19 22:14 Vitamin B Complex/ Vit C/Folic Acid (Nephrovite) 1 tab DAILY ORAL 10/27/19 09:00 11/22/19 08:59 Trinity Pan M.D. Oct 26, 2019 13:33
[2019-10-26 13:53] LABS: APPEARANCE,URINE SLIGHTLY CLOUDY; BILIRUBIN, URINE NEGATIVE (NEGATIVE); COLOR,URINE PALE YELLOW; GLUCOSE, URINE (UA) 1+ (NEGATIVE); KETONES,URINE 1+ (NEGATIVE); LEUKOCYTE ESTERASE ,URINE 1+ (NEGATIVE); NITRITE,URINE NEGATIVE (NEGATIVE); PH,URINE 5 (4.5-8.0); PROTEIN,URINE 4+ (NEGATIVE); UROBILINOGEN,URINE NORMAL MG/DL (0.0-1.0)
--- NOTE | 2019-10-26 14:00 | Diagnostic Imaging Report ---
Procedure: XRAY Chest 1v Reason for study: Reason For Exam: SOB Comparison films: 10/24/2019. FINDINGS: A single one view chest is obtained. Vascularity is normal. Bilateral alveolar densities are unchanged. Cardiac and mediastinal silhouette are within normal limits. Bilateral small effusions also unchanged. The bony thorax appear unremarkable. IMPRESSION: NO SIGNIFICANT CHANGE COMPARED TO PREVIOUS EXAM.
--- NOTE | 2019-10-26 14:17 | Surgery Progress Note ---
Surgery Progress Note Subjective Additional Comments ill appearing no n/v labs noted exam stable no complaints Objective Last 24 Hour Vital Signs Date Time Temp Pulse Resp B/P (MAP) Pulse Ox O2 Delivery O2 Flow Rate FiO2 10/26/19 12:00 97.5 75 18 157/79 (105) 98 10/26/19 12:00 73 10/26/19 12:00 Room Air 10/26/19 08:54 76 169/120 10/26/19 08:54 76 169/120 10/26/19 08:00 Room Air 10/26/19 08:00 97.0 76 18 169/100 (123) 99 10/26/19 08:00 77 10/26/19 04:00 Room Air 10/26/19 04:00 97.4 73 18 133/61 (85) 97 10/26/19 03:30 75 10/26/19 01:20 74 10/26/19 00:00 Nasal Cannula 2.0 10/26/19 00:00 97.5 93 16 146/79 (101) 100 10/25/19 23:33 87 10/25/19 20:47 79 149/69 10/25/19 20:00 Nasal Cannula 2.0 10/25/19 20:00 2.0 10/25/19 20:00 97.5 79 16 163/59 (93) 99 10/25/19 19:02 79 10/25/19 16:55 124/51 (75) 10/25/19 16:12 172/77 10/25/19 16:00 Nasal Cannula 2.0 10/25/19 16:00 81 10/25/19 16:00 98.3 73 16 172/77 (108) 99 10/25/19 16:00 2.0 I&O Intake and Output 10/25/19 10/26/19 19:00 07:00 Intake Total 905 ml 800 ml Output Total 420 ml 480 ml Balance 485 ml 320 ml Intake Oral 300 ml 200 ml IV Total 605 ml 600 ml Output Urine Total 420 ml 480 ml Dressing: saturated Cardiovascular: RSR Respiratory: decreased breath sounds Abdomen: soft, non-tender, present bowel sounds Extremities: no cyanosis Laboratory Tests Test 10/25/19 16:54 10/25/19 21:41 10/26/19 04:11 10/26/19 05:05 POC Whole Blood Glucose Pending Pending 169 MG/DL (74-106) H White Blood Count 5.8 K/UL (4.8-10.8) Red Blood Count 2.68 M/UL (4.70-6.10) L Hemoglobin 8.3 G/DL (14.2-18.0) L Hematocrit 26.6 % (42.0-52.0) L Mean Corpuscular Volume 99 FL (80-99) Mean Corpuscular Hemoglobin 30.8 PG (27.0-31.0) Mean Corpuscular Hemoglobin Concent 31.0 G/DL (32.0-36.0) L Red Cell Distribution Width 15.1 % (11.6-14.8) H Platelet Count 253 K/UL (150-450) Mean Platelet Volume 6.6 FL (6.5-10.1) Neutrophils (%) (Auto) 76.2 % (45.0-75.0) H Lymphocytes (%) (Auto) 13.8 % (20.0-45.0) L Monocytes (%) (Auto) 7.1 % (1.0-10.0) Eosinophils (%) (Auto) 2.1 % (0.0-3.0) Basophils (%) (Auto) 0.8 % (0.0-2.0) Sodium Level 139 MMOL/L (136-145) Potassium Level 3.8 MMOL/L (3.5-5.1) Chloride Level 106 MMOL/L (98-107) Carbon Dioxide Level 24 MMOL/L (21-32) Anion Gap 9 mmol/L (5-15) Blood Urea Nitrogen 77 mg/dL (7-18) H Creatinine 3.7 MG/DL (0.55-1.30) H Estimat Glomerular Filtration Rate 15.8 mL/min (>60) Glucose Level 202 MG/DL (74-106) H Uric Acid 4.5 MG/DL (2.6-7.2) Calcium Level 9.0 MG/DL (8.5-10.1) Phosphorus Level 6.2 MG/DL (2.5-4.9) H Magnesium Level 2.0 MG/DL (1.8-2.4) Total Bilirubin 0.2 MG/DL (0.2-1.0) Aspartate Amino Transf (AST/SGOT) 34 U/L (15-37) Alanine Aminotransferase (ALT/SGPT) 22 U/L (12-78) Alkaline Phosphatase 102 U/L (46-116) C-Reactive Protein, Quantitative 3.2 mg/dL (0.00-0.90) H Pro-B-Type Natriuretic Peptide > 76245 pg/mL (0-125) H Total Protein 5.9 G/DL (6.4-8.2) L Albumin 2.3 G/DL (3.4-5.0) L Globulin 3.6 g/dL Albumin/Globulin Ratio 0.6 (1.0-2.7) L Random Vancomycin Level 13.8 ug/mL Test 10/26/19 11:34 10/26/19 13:20 POC Whole Blood Glucose Pending Urine Color Pale yellow Urine Appearance Slightly cloudy Urine pH 5 (4.5-8.0) Urine Specific [place] 1.020 (1.005-1.035) Urine Protein 4+ (NEGATIVE) H Urine Glucose (UA) 1+ (NEGATIVE) H Urine Ketones 1+ (NEGATIVE) H Urine Blood 5+ (NEGATIVE) H Urine Nitrite Negative (NEGATIVE) Urine Bilirubin Negative (NEGATIVE) Urine Urobilinogen Normal MG/DL (0.0-1.0) Urine Leukocyte Esterase 1+ (NEGATIVE) H Urine RBC 30-40 /HPF (0 - 0) H Urine WBC 5-10 /HPF (0 - 0) H Urine Squamous Epithelial Cells Few /LPF (NONE/OCC) Urine Amorphous Sediment Few /LPF (NONE) H Urine Bacteria Few /HPF (NONE) Plan Problems: (1) Hypercarbia (2) Pleural effusion (3) Chronic renal failure (4) Anemia (5) CHF (congestive heart failure) (6) Bacteremia (7) Cellulitis (8) Hypoglycemia (9) Hyponatremia (10) ATN (acute tubular necrosis) (11) Metabolic acidosis (12) Pneumonia (13) Cellulitis of foot Assessment & Plan: Hx prior amputation prior MRI and plain films reviewed wounds stable and local care being provided no abscess noted cont with dressings elevate heels with pillow turn q2h off load pressure air mattress will follow with recs thank you (14) Osteomyelitis (15) History of hypertension (16) Renal failure (ARF), acute on chronic (17) Acute encephalopathy (18) Diabetes mellitus (19) Hypertension (20) Cholelithiasis Assessment & Plan: US reviewed exam benign asymptomatic cholelithiasis alk phos mild elevated lfts improved trend labs no acute surgical intervention planned Liver: Liver measures 14.8 cm. No intrahepatic bile duct dilation. Gallbladder: Small stone in the gallbladder. No significant gallbladder wall thickening or pericholecystic fluid. Negative sonographic Bianchi's sign. Common bile duct: Normal common bile duct measuring 4.5 mm. No stones. No dilation. Pancreas: Pancreas is not visualized due to overlying bowel gas. Kidneys: Right kidney measures 9.1 cm in length. No hydronephrosis or stone. Left kidney not visualized due to patient's body habitus. Spleen: Spleen measures 9.4 cm. No focal lesion. Aorta: Visualized portions of the aorta are grossly unremarkable. The mid and distal portions are obscured by bowel gas. Inferior vena cava: Unremarkable. Free fluid: No ascites. Tubes, lines and devices: Lyles catheter in a decompressed bladder. IMPRESSION: Small stone in the gallbladder. No significant gallbladder wall thickening or pericholecystic fluid. Negative sonographic Bianchi's sign. Mariusz Diehl Oct 26, 2019 14:17
--- NOTE | 2019-10-26 14:33 | Nephrology Progress Note ---
Assessment/Plan Problem List: (1) Renal failure (ARF), acute on chronic (2) Metabolic acidosis (3) Electrolyte imbalance Assessment: Hyponatremia and hyperkalemia (4) Anemia (5) CHF (congestive heart failure) Assessment 79-year-old male is admitted for hypoglycemia Patient has renal failure which appears to be acute on chronic Hyperkalemia Hyponatremia CHF, pleural effusion, pneumonia Anemia Metabolic acidosis Hypothyroidism Plan October 25: Clinically improving. Serum creatinine lower. Urine output increased. No dialysis planned at this time. Continue per consultants. October 24: Patient's respiratory status somewhat improved. Serum creatinine down to 3.9. Urinary output somewhat increased. Will hold placement of dialysis catheter at this time. Blood pressure medication adjusted. Continue to monitor renal parameters. Per orders. October 23: Patient remains on BiPAP. More Kayexalate ordered. Will consider hemodialysis to correct fluid overload and hyperkalemia and acidosis. Will discuss with PMD. Meanwhile IV Synthroid started. Discussed with RN Timothy Patient already transfused 1 unit for severe anemia previously Will initiate Epogen 10,000 units subcutaneously 1 dose of IV iron Venofer 200 g IV Kayexalate for hyperkalemia as needed 2D echocardiogram ordered, ejection fraction is reported normal Kidney ultrasound ordered: Kidneys: Right kidney measures 9.1 cm in length. No hydronephrosis or stone. Left kidney not visualized due to patient's body habitus. Avoid nephrotoxic's Monitor renal parameters Will hold insulin and hypoglycemic agents until hypoglycemia is reasonably resolved Subjective ROS Limited/Unobtainable: No Constitutional: Reports: malaise, weakness Objective Objective Last 24 Hour Vital Signs Date Time Temp Pulse Resp B/P (MAP) Pulse Ox O2 Delivery O2 Flow Rate FiO2 10/26/19 12:00 97.5 75 18 157/79 (105) 98 10/26/19 12:00 73 10/26/19 12:00 Room Air 10/26/19 08:54 76 169/120 10/26/19 08:54 76 169/120 10/26/19 08:00 Room Air 10/26/19 08:00 97.0 76 18 169/100 (123) 99 10/26/19 08:00 77 10/26/19 04:00 Room Air 10/26/19 04:00 97.4 73 18 133/61 (85) 97 8/4/20 03:30 75 10/26/19 01:20 74 10/26/19 00:00 Nasal Cannula 2.0 10/26/19 00:00 97.5 93 16 146/79 (101) 100 10/25/19 23:33 87 10/25/19 20:47 79 149/69 10/25/19 20:00 Nasal Cannula 2.0 10/25/19 20:00 2.0 10/25/19 20:00 97.5 79 16 163/59 (93) 99 10/25/19 19:02 79 10/25/19 16:55 124/51 (75) 10/25/19 16:12 172/77 10/25/19 16:00 Nasal Cannula 2.0 10/25/19 16:00 81 10/25/19 16:00 98.3 73 16 172/77 (108) 99 10/25/19 16:00 2.0 Intake and Output 10/25/19 10/26/19 19:00 07:00 Intake Total 905 ml 800 ml Output Total 420 ml 480 ml Balance 485 ml 320 ml Intake Oral 300 ml 200 ml IV Total 605 ml 600 ml Output Urine Total 420 ml 480 ml Current Medications Medications (Trade) Dose Ordered Sig/Cammy Route PRN Reason Start Time Stop Time Status Last Admin Dose Admin Acetaminophen (Tylenol) 650 mg Q6H PRN ORAL Pain Scale (3-5) 10/26/19 13:00 11/23/19 06:59 Amlodipine Besylate (Norvasc) 5 mg DAILY ORAL 10/27/19 09:00 11/25/19 08:59 Atorvastatin Calcium (Lipitor) 10 mg BEDTIME ORAL 10/26/19 21:00 01/21/20 20:59 Carvedilol (Coreg) 12.5 mg EVERY 12 HOURS ORAL 10/26/19 21:00 11/23/19 20:59 Ceftriaxone Sodium 2 gm/ Dextrose 55 ml @ 110 mls/hr Q24H IVPB 10/27/19 12:00 10/31/19 11:59 Dextrose (Dextrose 50%) 25 ml Q30M PRN IV Hypoglycemia 10/26/19 13:15 01/20/20 21:44 Dextrose (Dextrose 50%) 50 ml Q30M PRN IV Hypoglycemia 10/26/19 13:15 01/20/20 21:44 Docusate Sodium (Colace) 100 mg TID ORAL 10/26/19 18:00 11/22/19 17:59 Epoetin William (Epoetin William-EPBX(NON ESRD)) 2,000 unit SUBQ 10/27/19 21:00 01/23/20 20:59 Epoetin William (Epoetin William-EPBX(NON ESRD)) 8,000 unit SUBQ 10/27/19 21:00 01/23/20 20:59 Gabapentin (Neurontin) 100 mg THREE TIMES A DAY ORAL 10/26/19 18:00 11/22/19 17:59 Haloperidol (Haldol) 5 mg Q12H PRN ORAL Agitation 10/26/19 12:57 12/10/19 12:56 Haloperidol Lactate (Haldol) 5 mg Q6H PRN IM Agitation 10/26/19 12:57 12/10/19 12:56 Hydralazine HCl (Apresoline) 10 mg Q4H PRN IV For High Blood Pressure 10/26/19 13:07 01/24/20 13:06 Levothyroxine Sodium (Synthroid) 50 mcg DAILY IV 10/27/19 09:00 11/23/19 13:59 Pantoprazole (Protonix) 40 mg EVERY 12 HOURS IVP 10/26/19 21:00 11/22/19 08:59 Rivaroxaban (Xarelto) 20 mg DAILY ORAL 10/27/19 09:00 01/21/20 08:59 Sennosides (Senokot) 8.6 mg HSPRN PRN ORAL Constipation 10/26/19 12:58 11/25/19 12:57 Sevelamer Carbonate (Renvela) 1,600 mg THREE TIMES A DAY ORAL 10/26/19 18:00 01/21/20 17:59 Sodium Bicarbonate 50 ml/ Dextrose 1,050 ml @ 50 mls/hr Q21H IV 10/24/19 14:00 10/27/19 04:59 10/26/19 08:53 Sodium Bicarbonate 50 ml/ Dextrose 1,050 ml @ 50 mls/hr Q21H IV 10/27/19 05:00 11/26/19 04:59 Vancomycin HCl ([facility] pharmacy to dose) 1 ea DAILY PRN MISC Per rx protocol 10/27/19 09:00 11/21/19 22:14 Vitamin B Complex/ Vit C/Folic Acid (Nephrovite) 1 tab DAILY ORAL 10/27/19 09:00 11/22/19 08:59 Laboratory Tests 10/25/19 16:54: POC Whole Blood Glucose [Pending] 10/25/19 21:41: POC Whole Blood Glucose [Pending] 10/26/19 04:11: White Blood Count 5.8, Red Blood Count 2.68L, Hemoglobin 8.3L, Hematocrit 26.6L , Mean Corpuscular Volume 99, Mean Corpuscular Hemoglobin 30.8, Mean Corpuscular Hemoglobin Concent 31.0L, Red Cell Distribution Width 15.1H, Platelet Count 253, Mean Platelet Volume 6.6, Neutrophils (%) (Auto) 76.2H, Lymphocytes (%) (Auto) 13.8L, Monocytes (%) (Auto) 7.1, Eosinophils (%) (Auto) 2.1, Basophils (%) (Auto) 0.8, Sodium Level 139, Potassium Level 3.8, Chloride Level 106, Carbon Dioxide Level 24, Anion Gap 9, Blood Urea Nitrogen 77H, Creatinine 3.7H, Estimat Glomerular Filtration Rate 15.8, Glucose Level 202H, Uric Acid 4.5, Calcium Level 9.0, Phosphorus Level 6.2H, Magnesium Level 2.0, Total Bilirubin 0.2, Aspartate Amino Transf (AST/SGOT) 34, Alanine Aminotransferase (ALT/SGPT) 22, Alkaline Phosphatase 102, C-Reactive Protein, Quantitative 3.2H, Pro-B-Type Natriuretic Peptide > 75389J, Total Protein 5.9L, Albumin 2.3L, Globulin 3.6, Albumin/Globulin Ratio 0.6L, Random Vancomycin Level 13.8 10/26/19 05:05: POC Whole Blood Glucose 169H 10/26/19 11:34: POC Whole Blood Glucose [Pending] 10/26/19 13:20: Urine Color Pale yellow, Urine Appearance Slightly cloudy, Urine pH 5, Urine Specific [place] 1.020, Urine Protein 4+H, Urine Glucose (UA) 1+H, Urine Ketones 1+H, Urine Blood 5+H, Urine Nitrite Negative, Urine Bilirubin Negative, Urine Urobilinogen Normal, Urine Leukocyte Esterase 1+H, Urine RBC 30-40H, Urine WBC 5-10H, Urine Squamous Epithelial Cells Few, Urine Amorphous Sediment FewH, Urine Bacteria Few Height (Feet): 5 Height (Inches): 8.00 Weight (Pounds): 187 General Appearance: no apparent distress Cardiovascular: normal rate Respiratory/Chest: decreased breath sounds Abdomen: distended Objective No change Naveed Vanegas MD Oct 26, 2019 14:33
[2019-10-26 16:00] VITALS: BP 161/66
--- NOTE | 2019-10-26 19:20 | Psych Consult Progress Note ---
Psychiatry Progress Note Psychiatry Progress Note Subjective the pt is still have episodes o agitations benefits from restraints. sleep and appetite adequate Medications Current Medications Medications (Trade) Dose Ordered Sig/Cammy Route PRN Reason Start Time Stop Time Status Last Admin Dose Admin Acetaminophen (Tylenol) 650 mg Q6H PRN ORAL Pain Scale (3-5) 10/26/19 13:00 11/23/19 06:59 Amlodipine Besylate (Norvasc) 5 mg DAILY ORAL 10/27/19 09:00 11/25/19 08:59 Atorvastatin Calcium (Lipitor) 10 mg BEDTIME ORAL 10/26/19 21:00 01/21/20 20:59 Carvedilol (Coreg) 12.5 mg EVERY 12 HOURS ORAL 10/26/19 21:00 11/23/19 20:59 Ceftriaxone Sodium 2 gm/ Dextrose 55 ml @ 110 mls/hr Q24H IVPB 10/27/19 12:00 10/31/19 11:59 Dextrose (Dextrose 50%) 25 ml Q30M PRN IV Hypoglycemia 10/26/19 13:15 01/20/20 21:44 Dextrose (Dextrose 50%) 50 ml Q30M PRN IV Hypoglycemia 10/26/19 13:15 01/20/20 21:44 Docusate Sodium (Colace) 100 mg TID ORAL 10/26/19 18:00 11/22/19 17:59 10/26/19 17:48 Epoetin William (Epoetin William-EPBX(NON ESRD)) 2,000 unit FRI- SUBQ 10/27/19 21:00 01/23/20 20:59 Epoetin William (Epoetin William-EPBX(NON ESRD)) 8,000 unit FRI-FRI-FRI SUBQ 10/27/19 21:00 01/23/20 20:59 Gabapentin (Neurontin) 100 mg THREE TIMES A DAY ORAL 10/26/19 18:00 11/22/19 17:59 10/26/19 17:48 Haloperidol (Haldol) 5 mg Q12H PRN ORAL Agitation 10/26/19 12:57 12/10/19 12:56 Haloperidol Lactate (Haldol) 5 mg Q6H PRN IM Agitation 10/26/19 12:57 12/10/19 12:56 Hydralazine HCl (Apresoline) 10 mg Q4H PRN IV For High Blood Pressure 10/26/19 13:07 01/24/20 13:06 10/26/19 17:49 Levothyroxine Sodium (Synthroid) 50 mcg DAILY IV 10/27/19 09:00 11/23/19 13:59 Pantoprazole (Protonix) 40 mg EVERY 12 HOURS IVP 10/26/19 21:00 11/22/19 08:59 Rivaroxaban (Xarelto) 15 mg QPM ORAL 10/27/19 16:30 01/25/20 16:29 Sennosides (Senokot) 8.6 mg HSPRN PRN ORAL Constipation 10/26/19 12:58 11/25/19 12:57 Sevelamer Carbonate (Renvela) 1,600 mg THREE TIMES A DAY ORAL 10/26/19 18:00 01/21/20 17:59 10/26/19 17:48 Sodium Bicarbonate 50 ml/ Dextrose 1,050 ml @ 50 mls/hr Q21H IV 10/24/19 14:00 10/27/19 04:59 10/26/19 08:53 Sodium Bicarbonate 50 ml/ Dextrose 1,050 ml @ 50 mls/hr Q21H IV 10/27/19 05:00 11/26/19 04:59 Vancomycin HCl ([facility] pharmacy to dose) 1 ea DAILY PRN MISC Per rx protocol 10/27/19 09:00 11/21/19 22:14 Vitamin B Complex/ Vit C/Folic Acid (Nephrovite) 1 tab DAILY ORAL 10/27/19 09:00 11/22/19 08:59 Neurological/Psychiatric: Reports: anxiety; Denies: no symptoms, depressed, emotional problems, headache, numbness, paresthesia, pre-existing deficit, seizure, tingling, tremors, weakness, other Allergies: Coded Allergies: PENICILLINS (Verified Allergy, Unknown, 10/25/19) tolerated Ceftriaxone Objective Data Height (Feet): 5 Height (Inches): 8.00 Weight (Pounds): 187 Additional Comments: awake, confused, and disoriented. Mood is agitated. Affect is flat. Thought process, there is a paucity of thought content. Thought content, no suicidal or homicidal ideation. Cognition is impaired. Insight and judgment impaired. ASSESSMENT: 1. Dementia with behavior disturbance. 2. Acute encephalopathy. PLAN: 1. We will continue the Haldol IM 2. Discussed with the nurse. Dada Finch MD Oct 26, 2019 19:20
[2019-10-26 20:00] VITALS: BP 153/55
[2019-10-26] MEDS ORDERED: Dyna-Hex 2% Top Sol 2oz TOPIC SCH (20:00)
[2019-10-27] VITALS: BP 154/53
[2019-10-27 04:00] VITALS: BP 150/60
[2019-10-27] MEDS: Sodium Bicarbonate 50 ML in D5W 1000ml 1,000 ML IV SCH (05:06)
[2019-10-27 08:00] VITALS: BP 149/50
--- NOTE | 2019-10-27 08:08 | Hematology/Onc Progress Note ---
Assessment/Plan Assessment/Plan Covering Dr. Chang ASSESSMENT AND RECOMMENDATIONS: # Anemia of chronic disease due to underlying chronic medical issues, multifactorial --> Anemia w/u has been reviewed. --> no evidence of hemolysis is noted, peripheral smear has been reviewed --> hgb goal is >7, transfuse as needed --> currently remains stable, occult blood negative --> hgb 8.4->8.6->8.3 --> EPOGEN Started # Acute kidney injury r/o potential reversible component --> reviewed meds, those that are renally cleared removed --> as per renal recs, appreciated # Hypertension, essential --> sbp goal is <140, consider anti-htn as needed --> currently started on hyralazine 25mg po q6h prn sbp >140 # CHF - hx of CHF --> obtain a 2d echo per cards --> diuresis with lasix as needed --> cardiology recs appreciated #. Leukocytosis with underlying infectionv stress reaction HISTORY --> per id and better --> for infection, ABX ctx/vanc #. Bilateral lower extremity amputee, metatarsal several years ago #. Hyperkalemia -- kayxelate as needed #. Dvt ppx scds The time the note was entered does not necessarily correspond to the time the patient was seen. GREATLY APPRECIATE CONSULTATION. Subjective Constitutional: Denies: no symptoms, chills, fever, malaise, weakness, other HEENT: Denies: no symptoms, eye pain, blurred vision, tearing, double vision, ear pain, ear discharge, nose pain, nose congestion, throat pain, throat swelling, mouth pain, mouth swelling, other Cardiovascular: Denies: no symptoms, chest pain, edema, irregular heart rate, lightheadedness, palpitations, syncope, other Respiratory: Denies: no symptoms, cough, shortness of breath, SOB with excertion, SOB at rest, sputum, wheezing, other Gastrointestinal/Abdominal: Denies: no symptoms, abdomen distended, abdominal pain, black stools, tarry stools, blood in stool, constipated, diarrhea, difficulty swallowing, nausea, poor appetite, poor fluid intake, rectal bleeding , vomiting, other Genitourinary: Denies: no symptoms, burning, discharge, frequency, flank pain, hematuria, incontinence, pain, urgency, other Neurologic/Psychiatric: Denies: no symptoms, anxiety, depressed, emotional problems, headache, numbness, paresthesia, pre-existing deficit, seizure, tingling, tremors, weakness, other Endocrine: Denies: no symptoms, excessive sweating, flushing, intolerance to cold, intolerance to heat, increased hunger, increased thirst, increased urine, unexplained weight gain, unexplained weight loss, other Allergies: Coded Allergies: PENICILLINS (Verified Allergy, Unknown, 10/25/19) tolerated Ceftriaxone Subjective 10/[address] Chang, to do best to avoid haldol, continue restraints, jag rn, on nc, feeling better 10/25 still with some agitation overnight, meds reviewed, jag rn, haldol given in AM 10/26 is on 2l nc, also is on restraints, no night sweats, no bleeding Objective Objective Current Medications Medications (Trade) Dose Ordered Sig/Cammy Route PRN Reason Start Time Stop Time Status Last Admin Dose Admin Acetaminophen (Tylenol) 650 mg Q6H PRN ORAL Pain Scale (3-5) 10/26/19 13:00 11/23/19 06:59 10/26/19 22:43 Amlodipine Besylate (Norvasc) 5 mg DAILY ORAL 10/27/19 09:00 11/25/19 08:59 Atorvastatin Calcium (Lipitor) 10 mg BEDTIME ORAL 10/26/19 21:00 01/21/20 20:59 10/26/19 21:11 Carvedilol (Coreg) 12.5 mg EVERY 12 HOURS ORAL 10/26/19 21:00 11/23/19 20:59 10/26/19 21:11 Ceftriaxone Sodium 2 gm/ Dextrose 55 ml @ 110 mls/hr Q24H IVPB 10/27/19 12:00 10/31/19 11:59 Dextrose (Dextrose 50%) 25 ml Q30M PRN IV Hypoglycemia 10/26/19 13:15 01/20/20 21:44 Dextrose (Dextrose 50%) 50 ml Q30M PRN IV Hypoglycemia 10/26/19 13:15 01/20/20 21:44 Docusate Sodium (Colace) 100 mg TID ORAL 10/26/19 18:00 11/22/19 17:59 10/26/19 17:48 Epoetin William (Epoetin William-EPBX(NON ESRD)) 2,000 unit MON-WED-FRI SUBQ 10/27/19 21:00 01/23/20 20:59 Epoetin William (Epoetin William-EPBX(NON ESRD)) 8,000 unit SUBQ 10/27/19 21:00 01/23/20 20:59 Gabapentin (Neurontin) 100 mg THREE TIMES A DAY ORAL 10/26/19 18:00 11/22/19 17:59 10/26/19 17:48 Haloperidol (Haldol) 5 mg Q12H PRN ORAL Agitation 10/26/19 12:57 12/10/19 12:56 Haloperidol Lactate (Haldol) 5 mg Q6H PRN IM Agitation 10/26/19 12:57 12/10/19 12:56 Hydralazine HCl (Apresoline) 10 mg Q4H PRN IV For High Blood Pressure 10/26/19 13:07 01/24/20 13:06 10/26/19 17:49 Levothyroxine Sodium (Synthroid) 50 mcg DAILY IV 10/27/19 09:00 11/23/19 13:59 Pantoprazole (Protonix) 40 mg EVERY 12 HOURS IVP 10/26/19 21:00 11/22/19 08:59 10/26/19 21:11 Rivaroxaban (Xarelto) 15 mg QPM ORAL 10/27/19 16:30 01/25/20 16:29 Sennosides (Senokot) 8.6 mg HSPRN PRN ORAL Constipation 10/26/19 12:58 11/25/19 12:57 Sevelamer Carbonate (Renvela) 1,600 mg THREE TIMES A DAY ORAL 10/26/19 18:00 01/21/20 17:59 10/26/19 17:48 Sodium Bicarbonate 50 ml/ Dextrose 1,050 ml @ 50 mls/hr Q21H IV 10/27/19 05:00 11/26/19 04:59 10/27/19 05:06 Vancomycin HCl ([facility] pharmacy to dose) 1 ea DAILY PRN MISC Per rx protocol 10/27/19 09:00 11/21/19 22:14 Vitamin B Complex/ Vit C/Folic Acid (Nephrovite) 1 tab DAILY ORAL 10/27/19 09:00 11/22/19 08:59 Last 24 Hour Vital Signs Date Time Temp Pulse Resp B/P (MAP) Pulse Ox O2 Delivery O2 Flow Rate FiO2 10/27/19 08:00 96.9 62 20 149/50 (83) 99 10/27/19 04:00 97.2 70 19 150/60 (90) 100 10/27/19 04:00 56 10/27/19 00:00 65 10/27/19 00:00 97.3 64 19 154/53 (86) 100 10/26/19 21:11 69 153/55 10/26/19 21:00 Nasal Cannula 2.0 10/26/19 20:00 70 10/26/19 20:00 97.0 69 18 153/55 (87) 100 10/26/19 17:49 161/66 10/26/19 16:00 78 10/26/19 16:00 97.0 78 18 161/66 (97) 98 10/26/19 12:00 97.5 75 18 157/79 (105) 98 10/26/19 12:00 73 10/26/19 12:00 Room Air 10/26/19 08:54 76 169/120 10/26/19 08:54 76 169/120 10/26/19 08:00 Room Air 10/26/19 08:00 97.0 76 18 169/100 (123) 99 10/26/19 08:00 77 10/26/19 04:00 Room Air 10/26/19 04:00 97.4 73 18 133/61 (85) 97 10/26/19 03:30 75 10/26/19 01:20 74 10/26/19 00:00 Nasal Cannula 2.0 10/26/19 00:00 97.5 93 16 146/79 (101) 100 10/25/19 23:33 87 10/25/19 20:47 79 149/69 10/25/19 20:00 Nasal Cannula 2.0 10/25/19 20:00 2.0 10/25/19 20:00 97.5 79 16 163/59 (93) 99 10/25/19 19:02 79 10/25/19 16:55 124/51 (75) 10/25/19 16:12 172/77 10/25/19 16:00 Nasal Cannula 2.0 10/25/19 16:00 81 10/25/19 16:00 98.3 73 16 172/77 (108) 99 10/25/19 16:00 2.0 10/25/19 12:00 77 10/25/19 12:00 Nasal Cannula 2.0 10/25/19 12:00 2.0 10/25/19 12:00 98.2 80 22 154/59 (90) 99 10/25/19 10:52 85 160/58 10/25/19 10:05 184/66 10/25/19 09:06 84 184/76 Intake and Output 10/26/19 10/27/19 19:00 07:00 Intake Total 575 ml 200 ml Output Total 270 ml 500 ml Balance 305 ml -300 ml Intake Oral 220 ml IV Total 355 ml 200 ml Output Urine Total 270 ml 500 ml Labs Test 10/25/19 04:12 10/25/19 07:23 10/25/19 11:20 10/25/19 16:54 White Blood Count 5.7 K/UL (4.8-10.8) Red Blood Count 2.85 M/UL (4.70-6.10) Hemoglobin 8.6 G/DL (14.2-18.0) Hematocrit 28.6 % (42.0-52.0) Mean Corpuscular Volume 100 FL (80-99) Mean Corpuscular Hemoglobin 30.1 PG (27.0-31.0) Mean Corpuscular Hemoglobin Concent 30.1 G/DL (32.0-36.0) Red Cell Distribution Width 15.5 % (11.6-14.8) Platelet Count 269 K/UL (150-450) Mean Platelet Volume 6.5 FL (6.5-10.1) Neutrophils (%) (Auto) 72.8 % (45.0-75.0) Lymphocytes (%) (Auto) 18.7 % (20.0-45.0) Monocytes (%) (Auto) 6.7 % (1.0-10.0) Eosinophils (%) (Auto) 0.9 % (0.0-3.0) Basophils (%) (Auto) 0.9 % (0.0-2.0) Prothrombin Time 11.3 SEC (9.30-11.50) Prothromb Time International Ratio 1.0 (0.9-1.1) Activated Partial Thromboplast Time 32 SEC (23-33) Sodium Level 139 MMOL/L (136-145) Potassium Level 4.2 MMOL/L (3.5-5.1) Chloride Level 105 MMOL/L (98-107) Carbon Dioxide Level 24 MMOL/L (21-32) Anion Gap 10 mmol/L (5-15) Blood Urea Nitrogen 75 mg/dL (7-18) Creatinine 3.9 MG/DL (0.55-1.30) Estimat Glomerular Filtration Rate 14.9 mL/min (>60) Glucose Level 180 MG/DL (74-106) Uric Acid 4.2 MG/DL (2.6-7.2) Calcium Level 8.9 MG/DL (8.5-10.1) Phosphorus Level 6.9 MG/DL (2.5-4.9) Magnesium Level 2.1 MG/DL (1.8-2.4) Iron Level 89 ug/dL (50-175) Total Iron Binding Capacity 252 ug/dL (250-450) Percent Iron Saturation 35 % (15-50) Unsaturated Iron Binding 163 ug/dL (112-346) Ferritin 299 NG/ML (8-388) Total Bilirubin 0.3 MG/DL (0.2-1.0) Gamma Glutamyl Transpeptidase 38 U/L (5-85) Aspartate Amino Transf (AST/SGOT) 41 U/L (15-37) Alanine Aminotransferase (ALT/SGPT) 29 U/L (12-78) Alkaline Phosphatase 115 U/L (46-116) Troponin I 0.009 ng/mL (0.000-0.056) C-Reactive Protein, Quantitative 4.1 mg/dL (0.00-0.90) Pro-B-Type Natriuretic Peptide 85430 pg/mL (0-125) Total Protein 6.5 G/DL (6.4-8.2) Albumin 2.6 G/DL (3.4-5.0) Globulin 3.9 g/dL Albumin/Globulin Ratio 0.7 (1.0-2.7) Arterial Blood pH 7.291 (7.350-7.450) Arterial Blood Partial Pressure CO2 39.5 mmHg (35.0-45.0) Arterial Blood Partial Pressure O2 66.1 mmHg (75.0-100.0) Arterial Blood HCO3 18.6 mmol/L (22.0-26.0) Arterial Blood Oxygen Saturation 91.6 % (95-100) Arterial Blood Base Excess -7.4 (-2-2) Kristian Test Positive Test 10/25/19 21:41 10/26/19 04:11 10/26/19 05:05 10/26/19 11:34 White Blood Count 5.8 K/UL (4.8-10.8) Red Blood Count 2.68 M/UL (4.70-6.10) Hemoglobin 8.3 G/DL (14.2-18.0) Hematocrit 26.6 % (42.0-52.0) Mean Corpuscular Volume 99 FL (80-99) Mean Corpuscular Hemoglobin 30.8 PG (27.0-31.0) Mean Corpuscular Hemoglobin Concent 31.0 G/DL (32.0-36.0) Red Cell Distribution Width 15.1 % (11.6-14.8) Platelet Count 253 K/UL (150-450) Mean Platelet Volume 6.6 FL (6.5-10.1) Neutrophils (%) (Auto) 76.2 % (45.0-75.0) Lymphocytes (%) (Auto) 13.8 % (20.0-45.0) Monocytes (%) (Auto) 7.1 % (1.0-10.0) Eosinophils (%) (Auto) 2.1 % (0.0-3.0) Basophils (%) (Auto) 0.8 % (0.0-2.0) Sodium Level 139 MMOL/L (136-145) Potassium Level 3.8 MMOL/L (3.5-5.1) Chloride Level 106 MMOL/L (98-107) Carbon Dioxide Level 24 MMOL/L (21-32) Anion Gap 9 mmol/L (5-15) Blood Urea Nitrogen 77 mg/dL (7-18) Creatinine 3.7 MG/DL (0.55-1.30) Estimat Glomerular Filtration Rate 15.8 mL/min (>60) Glucose Level 202 MG/DL (74-106) Uric Acid 4.5 MG/DL (2.6-7.2) Calcium Level 9.0 MG/DL (8.5-10.1) Phosphorus Level 6.2 MG/DL (2.5-4.9) Magnesium Level 2.0 MG/DL (1.8-2.4) Total Bilirubin 0.2 MG/DL (0.2-1.0) Aspartate Amino Transf (AST/SGOT) 34 U/L (15-37) Alanine Aminotransferase (ALT/SGPT) 22 U/L (12-78) Alkaline Phosphatase 102 U/L (46-116) C-Reactive Protein, Quantitative 3.2 mg/dL (0.00-0.90) Pro-B-Type Natriuretic Peptide > 43193 pg/mL (0-125) Total Protein 5.9 G/DL (6.4-8.2) Albumin 2.3 G/DL (3.4-5.0) Globulin 3.6 g/dL Albumin/Globulin Ratio 0.6 (1.0-2.7) Random Vancomycin Level 13.8 ug/mL POC Whole Blood Glucose 169 MG/DL (74-106) Test 10/26/19 13:20 Urine Color Pale yellow Urine Appearance Slightly cloudy Urine pH 5 (4.5-8.0) Urine Specific [place] 1.020 (1.005-1.035) Urine Protein 4+ (NEGATIVE) Urine Glucose (UA) 1+ (NEGATIVE) Urine Ketones 1+ (NEGATIVE) Urine Blood 5+ (NEGATIVE) Urine Nitrite Negative (NEGATIVE) Urine Bilirubin Negative (NEGATIVE) Urine Urobilinogen Normal MG/DL (0.0-1.0) Urine Leukocyte Esterase 1+ (NEGATIVE) Urine RBC 30-40 /HPF (0 - 0) Urine WBC 5-10 /HPF (0 - 0) Urine Squamous Epithelial Cells Few /LPF (NONE/OCC) Urine Amorphous Sediment Few /LPF (NONE) Urine Bacteria Few /HPF (NONE) Height (Feet): 5 Height (Inches): 8.00 Weight (Pounds): 193 Objective GENERAL: Not in acute distress. PULMONARY: Decreased breath sounds. Some crackles noted Right side. CARDIOVASCULAR: Regular rate. No S3 or S4. ABDOMEN: Soft, nontender, nondistended. EXTREMITIES: 1+ edema. No cyanosis, swelling, or edema. 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 Melvin Rizzo MD Oct 27, 2019 08:08
[2019-10-27] MEDS ORDERED: Xarelto 10mg tab ORAL SCH (09:00)
--- NOTE | 2019-10-27 09:16 | Surgery Progress Note ---
Surgery Progress Note Subjective Additional Comments no acute events comfortable on nc pending labs Objective Last 24 Hour Vital Signs Date Time Temp Pulse Resp B/P (MAP) Pulse Ox O2 Delivery O2 Flow Rate FiO2 10/27/19 08:19 Nasal Cannula 2.0 10/27/19 08:00 96.9 62 20 149/50 (83) 99 10/27/19 04:00 97.2 70 19 150/60 (90) 100 10/27/19 04:00 56 10/27/19 00:00 65 10/27/19 00:00 97.3 64 19 154/53 (86) 100 10/26/19 21:11 69 153/55 10/26/19 21:00 Nasal Cannula 2.0 10/26/19 20:00 70 10/26/19 20:00 97.0 69 18 153/55 (87) 100 10/26/19 17:49 161/66 10/26/19 16:00 78 10/26/19 16:00 97.0 78 18 161/66 (97) 98 10/26/19 12:00 97.5 75 18 157/79 (105) 98 10/26/19 12:00 73 10/26/19 12:00 Room Air I&O Intake and Output 10/26/19 10/27/19 19:00 07:00 Intake Total 575 ml 200 ml Output Total 270 ml 500 ml Balance 305 ml -300 ml Intake Oral 220 ml IV Total 355 ml 200 ml Output Urine Total 270 ml 500 ml Dressing: saturated Wound: other Cardiovascular: RSR Respiratory: decreased breath sounds Abdomen: soft, present bowel sounds Extremities: no cyanosis Laboratory Tests Test 10/26/19 11:34 10/26/19 13:20 POC Whole Blood Glucose Pending Urine Color Pale yellow Urine Appearance Slightly cloudy Urine pH 5 (4.5-8.0) Urine Specific [place] 1.020 (1.005-1.035) Urine Protein 4+ (NEGATIVE) H Urine Glucose (UA) 1+ (NEGATIVE) H Urine Ketones 1+ (NEGATIVE) H Urine Blood 5+ (NEGATIVE) H Urine Nitrite Negative (NEGATIVE) Urine Bilirubin Negative (NEGATIVE) Urine Urobilinogen Normal MG/DL (0.0-1.0) Urine Leukocyte Esterase 1+ (NEGATIVE) H Urine RBC 30-40 /HPF (0 - 0) H Urine WBC 5-10 /HPF (0 - 0) H Urine Squamous Epithelial Cells Few /LPF (NONE/OCC) Urine Amorphous Sediment Few /LPF (NONE) H Urine Bacteria Few /HPF (NONE) Plan Problems: (1) Hypercarbia (2) Pleural effusion (3) Chronic renal failure (4) Anemia (5) CHF (congestive heart failure) (6) Bacteremia (7) Cellulitis (8) Hypoglycemia (9) Hyponatremia (10) ATN (acute tubular necrosis) (11) Metabolic acidosis (12) Pneumonia (13) Cellulitis of foot Assessment & Plan: Pt presented on admission with Bilat TMA. Pressure injuries both heels. Stable dry necrosis note to Plantar /lateral L TMA. L Heel is boggy with non- Blanchable erythema. . R Heel Boggy with Non-Blanchable erythema.Haemosiderin with Xerosis skin noted to R and L lower ext. Darker skin tone without erythema , induration or fluctuance Medial L Malleolus. Darker skin tone without erythema or induration noted to sacrum. Tx.Plan: Apply Moisture Barrier Paste to Sacrum. Cover with Optifoam drsg.Change every 3 days and prn. Apply Betadine to eschar plantar/lateral L TMA . Cover with Optifoam drsg. Change every 3 days and prn. Apply Cavilon Skin Barrier to both heels and Malleoli. Cover each site with Optifoam drsg. Change every 7days and prn. Reposition at least every 2hours or as tolerated. Off load heels with pillow.Hx prior amputation prior MRI and plain films reviewed wounds stable and local care being provided no abscess noted cont with dressings elevate heels with pillow turn q2h off load pressure air mattress will follow with recs thank you (14) Osteomyelitis (15) History of hypertension (16) Renal failure (ARF), acute on chronic (17) Acute encephalopathy (18) Diabetes mellitus (19) Hypertension (20) Cholelithiasis Assessment & Plan: US reviewed exam benign asymptomatic cholelithiasis alk phos mild elevated lfts improved trend labs no acute surgical intervention planned Liver: Liver measures 14.8 cm. No intrahepatic bile duct dilation. Gallbladder: Small stone in the gallbladder. No significant gallbladder wall thickening or pericholecystic fluid. Negative sonographic Bianchi's sign. Common bile duct: Normal common bile duct measuring 4.5 mm. No stones. No dilation. Pancreas: Pancreas is not visualized due to overlying bowel gas. Kidneys: Right kidney measures 9.1 cm in length. No hydronephrosis or stone. Left kidney not visualized due to patient's body habitus. Spleen: Spleen measures 9.4 cm. No focal lesion. Aorta: Visualized portions of the aorta are grossly unremarkable. The mid and distal portions are obscured by bowel gas. Inferior vena cava: Unremarkable. Free fluid: No ascites. Tubes, lines and devices: Lyles catheter in a decompressed bladder. IMPRESSION: Small stone in the gallbladder. No significant gallbladder wall thickening or pericholecystic fluid. Negative sonographic Bianchi's sign. Mariusz Diehl Oct 27, 2019 09:16
[2019-10-27] MEDS: Docusate 100mg cap ORAL SCH ×3 (09:30→17:40)
[2019-10-27] MEDS: Pantoprazole Inj IVP SCH ×2 (09:30→21:00)
[2019-10-27] MEDS: Nephrovite tab (Rena-Vite) ORAL SCH (09:30)
[2019-10-27] MEDS: Carvedilol 12.5mg tab ORAL SCH ×2 (09:31→22:19)
[2019-10-27 10:39] LABS: ANION GAP 8 mmol/L (5-15); BLOOD UREA NITROGEN 68 mg/dL (7-18); CARBON DIOXIDE 26 MMOL/L (21-32); CHLORIDE 102 MMOL/L (98-107); CREATININE 3.3 MG/DL (0.55-1.30); POTASSIUM 3.9 MMOL/L (3.5-5.1); SODIUM 136 MMOL/L (136-145)
--- NOTE | 2019-10-27 10:45 | Pulmonology Progress Note ---
Reema Hanna AGER TENDER 10/27/19 1045: Subjective ROS Limited/Unobtainable: No Allergies: Coded Allergies: PENICILLINS (Verified Allergy, Unknown, 10/25/19) tolerated Ceftriaxone Subjective intermittently on o2 via NC and RA denies CP, SOB, cough remans afebrile, no leukocytosis creat slowly trending down now on tele denies SOB, CP CXR 10/25 stable Objective Last 24 Hour Vital Signs Date Time Temp Pulse Resp B/P (MAP) Pulse Ox O2 Delivery O2 Flow Rate FiO2 10/27/19 09:31 62 149/50 10/27/19 09:31 62 149/50 10/27/19 08:19 Nasal Cannula 2.0 10/27/19 08:00 63 10/27/19 08:00 96.9 62 20 149/50 (83) 99 10/27/19 04:00 97.2 70 19 150/60 (90) 100 10/27/19 04:00 56 10/27/19 00:00 65 10/27/19 00:00 97.3 64 19 154/53 (86) 100 10/26/19 21:11 69 153/55 10/26/19 21:00 Nasal Cannula 2.0 10/26/19 20:00 70 10/26/19 20:00 97.0 69 18 153/55 (87) 100 10/26/19 17:49 161/66 10/26/19 16:00 78 10/26/19 16:00 97.0 78 18 161/66 (97) 98 10/26/19 12:00 97.5 75 18 157/79 (105) 98 10/26/19 12:00 73 10/26/19 12:00 Room Air Intake and Output 10/26/19 10/27/19 19:00 07:00 Intake Total 575 ml 200 ml Output Total 270 ml 500 ml Balance 305 ml -300 ml Intake Oral 220 ml IV Total 355 ml 200 ml Output Urine Total 270 ml 500 ml Objective General Appearance: no apparent distress, Polish speaking confused male, Lines, tubes and drains: peripheral HEENT: normocephalic, atraumatic, anicteric, mucous membranes moist, O2 via NC Respiratory/Chest: BS clear Cardiovascular/Chest: normal rate, regular rhythm Abdomen: normal bowel sounds, non tender, soft Extremities: partially amputated BL foot Skin Exam: warm/dry Neurologic: abnormal gait, alert, oriented , confused Musculoskeletal: atrophy - BLE Microbiology Date/Time Source Procedure Growth Status 10/25/19 09:00 Nasopharynx SARS-CoV-2 RdRp Gene Assay - Final Complete 10/25/19 04:00 Sputum Expectorated Gram Stain - Final Complete 10/25/19 04:00 Sputum Expectorated Sputum Culture - Final NORMAL UPPER RESPIRATORY OSMAR PRESENT Complete Laboratory Tests 10/26/19 11:34: POC Whole Blood Glucose [Pending] 10/26/19 13:20: Urine Color Pale yellow, Urine Appearance Slightly cloudy, Urine pH 5, Urine Specific [place] 1.020, Urine Protein 4+H, Urine Glucose (UA) 1+H, Urine Ketones 1+H, Urine Blood 5+H, Urine Nitrite Negative, Urine Bilirubin Negative, Urine Urobilinogen Normal, Urine Leukocyte Esterase 1+H, Urine RBC 30-40H, Urine WBC 5-10H, Urine Squamous Epithelial Cells Few, Urine Amorphous Sediment FewH, Urine Bacteria Few 10/27/19 09:53: Sodium Level [Pending], Potassium Level [Pending], Chloride Level [Pending], Carbon Dioxide Level [Pending], Blood Urea Nitrogen [Pending], Creatinine [ Pending], Estimat Glomerular Filtration Rate [Pending], Glucose Level [Pending] , Calcium Level [Pending], Phosphorus Level [Pending], Magnesium Level [Pending] , Total Bilirubin [Pending], Aspartate Amino Transf (AST/SGOT) [Pending], Alanine Aminotransferase (ALT/SGPT) [Pending], Alkaline Phosphatase [Pending], Total Protein [Pending], Albumin [Pending], Globulin [Pending] Current Medications Medications (Trade) Dose Ordered Sig/Cammy Route PRN Reason Start Time Stop Time Status Last Admin Dose Admin Acetaminophen (Tylenol) 650 mg Q6H PRN ORAL Pain Scale (3-5) 10/26/19 13:00 11/23/19 06:59 10/26/19 22:43 Amlodipine Besylate (Norvasc) 5 mg DAILY ORAL 10/27/19 09:00 11/25/19 08:59 10/27/19 09:31 Atorvastatin Calcium (Lipitor) 10 mg BEDTIME ORAL 10/26/19 21:00 01/21/20 20:59 10/26/19 21:11 Carvedilol (Coreg) 12.5 mg EVERY 12 HOURS ORAL 10/26/19 21:00 11/23/19 20:59 10/27/19 09:31 Ceftriaxone Sodium 2 gm/ Dextrose 55 ml @ 110 mls/hr Q24H IVPB 10/27/19 12:00 10/31/19 11:59 Dextrose (Dextrose 50%) 25 ml Q30M PRN IV Hypoglycemia 10/26/19 13:15 01/20/20 21:44 Dextrose (Dextrose 50%) 50 ml Q30M PRN IV Hypoglycemia 10/26/19 13:15 01/20/20 21:44 Docusate Sodium (Colace) 100 mg TID ORAL 10/26/19 18:00 11/22/19 17:59 10/27/19 09:30 Epoetin William (Epoetin William-EPBX(NON ESRD)) 2,000 unit SUBQ 10/27/19 21:00 01/23/20 20:59 Epoetin William (Epoetin William-EPBX(NON ESRD)) 8,000 unit SUBQ 10/27/19 21:00 01/23/20 20:59 Gabapentin (Neurontin) 100 mg THREE TIMES A DAY ORAL 10/26/19 18:00 11/22/19 17:59 10/27/19 09:30 Haloperidol (Haldol) 5 mg Q12H PRN ORAL Agitation 10/26/19 12:57 12/10/19 12:56 Haloperidol Lactate (Haldol) 5 mg Q6H PRN IM Agitation 10/26/19 12:57 12/10/19 12:56 Hydralazine HCl (Apresoline) 10 mg Q4H PRN IV For High Blood Pressure 10/26/19 13:07 01/24/20 13:06 10/26/19 17:49 Levothyroxine Sodium (Synthroid) 50 mcg DAILY IV 10/27/19 09:00 11/23/19 13:59 10/27/19 09:37 Pantoprazole (Protonix) 40 mg EVERY 12 HOURS IVP 10/26/19 21:00 11/22/19 08:59 10/27/19 09:30 Rivaroxaban (Xarelto) 15 mg QPM ORAL 10/27/19 16:30 01/25/20 16:29 Sennosides (Senokot) 8.6 mg HSPRN PRN ORAL Constipation 10/26/19 12:58 11/25/19 12:57 Sevelamer Carbonate (Renvela) 1,600 mg THREE TIMES A DAY ORAL 10/26/19 18:00 01/21/20 17:59 10/27/19 09:30 Sodium Bicarbonate 50 ml/ Dextrose 1,050 ml @ 50 mls/hr Q21H IV 10/27/19 05:00 11/26/19 04:59 10/27/19 05:06 Vancomycin HCl (Vanco pharmacy to dose) 1 ea DAILY PRN MISC Per rx protocol 10/27/19 09:00 11/21/19 22:14 Vitamin B Complex/ Vit C/Folic Acid (Nephrovite) 1 tab DAILY ORAL 10/27/19 09:00 11/22/19 08:59 10/27/19 09:30 Assessment/Plan Assessment/Plan ASSESSMENT Acute hypoxemic hypercapnic respiratory failure requiring BiPAP -resolved Acute metabolic encephalopathy likely due to hypoglycemia Diabetes mellitus with initial hypoglycemia Probably pneumonia Aspiration risk Acute kidney injury on chronic kidney disease Severe anemia requiring blood transfusion Metabolic acidosis Electrolyte imbalance :hyponatremia, hyperkalemia HTN with HTN urgency Dysphagia PLAN OF CARE tele off BiPAP now on O2 via NC intermittently as well as RA hypercapnia resolved titrate FiO2 to keep sat > 90% pulm toilet 10/21 and 10/24 rapid COVID NGT, CXR 10/23 -> 1. Small layering right pleural effusion, not significantly changed. The previously noted small left pleural effusion is not as evident. 2. Prominent lung markings and haziness, right greater left, which may be related to pulmonary vascular congestion versus pneumonitis. This is not significantly changed. 3. Subsegmental atelectasis versus infiltrate in the medial left lung base, also not significantly changed. BiPAP prn empiric abx as per ID recs -> Ceftriaxone and Vanco BCX 10/21 NGTD UCX NGT SCX if able CXR 10/25 -> stable , no significant change from before Niru Duplex BLE 10/25 -> NGT ECHO with pEF 55-60% on chronic a/c with Xarelto ?unclear reason monitor volumes swallow eval with aspiration risk diet texture as per ST recs with strict asp precautions and assistance with meals gentle IV dextrose with bicarb, monitor acid base status , ABG in am HgA1c -6.1 hold oral anti-glycemic SSI prn ; recommend sensitive SSI AMS was most likely due to episode of hypoglycemia CT head NGT for acute ICP renal US avoid nephrotoxic s/p Kayexalate and sodium bicarb gentle IVF chem pending for this am fup with nephro recommendation creat slowly trending down BP management with CCB and Hydralazine prn for BP spikes monitor HH with goal to keep Hgb above 7 stool OB anemia w/up noted , heme on board s/p 1 dose of Venofer now on EPO GI prophayxlis supportive care thanks for a consult! case discussed and evaluated by supervising physician Leoncio Galan MD 10/27/19 1438: Subjective Allergies: Coded Allergies: PENICILLINS (Verified Allergy, Unknown, 10/25/19) tolerated Ceftriaxone Assessment/Plan Assessment/Plan Patient seen and examined with AGER TENDER. Agree with above A&P as it reflects our joint deliberations. Reema Hanna AGER TENDER Oct 27, 2019 10:45 Leoncio Galan MD Oct 27, 2019 14:38
[2019-10-27 10:49] LABS: ALANINE AMINOTRANSFERASE 29 U/L (12-78); ALBUMIN 2.6 G/DL (3.4-5.0); ALBUMIN/GLOBULIN RATIO 0.7 (1.0-2.7); ALKALINE PHOSPHATASE 109 U/L (46-116); ASPARTATE AMINO TRANSFERASE 44 U/L (15-37); BILIRUBIN,TOTAL 0.2 MG/DL (0.2-1.0); PHOSPHORUS 6.1 MG/DL (2.5-4.9)
[2019-10-27] MEDS: cefTRIAXone 2 GM in D5W 55 ML IVPB SCH (11:32)
[2019-10-27 12:00] VITALS: BP 145/51
--- NOTE | 2019-10-27 12:34 | Nephrology Progress Note ---
Assessment/Plan Problem List: (1) Renal failure (ARF), acute on chronic (2) Metabolic acidosis (3) Electrolyte imbalance Assessment: Hyponatremia and hyperkalemia (4) Anemia (5) CHF (congestive heart failure) Assessment 79-year-old male is admitted for hypoglycemia Patient has renal failure which appears to be acute on chronic Hyperkalemia Hyponatremia CHF, pleural effusion, pneumonia Anemia Metabolic acidosis Hypothyroidism Plan October 26: Serum creatinine lower again today. Will abort the dialysis plan. Continue per consultants. Continue to monitor renal parameters. Medication list reviewed. October 25: Clinically improving. Serum creatinine lower. Urine output increased. No dialysis planned at this time. Continue per consultants. October 24: Patient's respiratory status somewhat improved. Serum creatinine down to 3.9. Urinary output somewhat increased. Will hold placement of dialysis catheter at this time. Blood pressure medication adjusted. Continue to monitor renal parameters. Per orders. October 23: Patient remains on BiPAP. More Kayexalate ordered. Will consider hemodialysis to correct fluid overload and hyperkalemia and acidosis. Will discuss with PMD. Meanwhile IV Synthroid started. Discussed with RN Timothy Patient already transfused 1 unit for severe anemia previously Will initiate Epogen 10,000 units subcutaneously 1 dose of IV iron Venofer 200 g IV Kayexalate for hyperkalemia as needed 2D echocardiogram ordered, ejection fraction is reported normal Kidney ultrasound ordered: Kidneys: Right kidney measures 9.1 cm in length. No hydronephrosis or stone. Left kidney not visualized due to patient's body habitus. Avoid nephrotoxic's Monitor renal parameters Will hold insulin and hypoglycemic agents until hypoglycemia is reasonably resolved Subjective ROS Limited/Unobtainable: No Constitutional: Reports: malaise, weakness Objective Objective Last 24 Hour Vital Signs Date Time Temp Pulse Resp B/P (MAP) Pulse Ox O2 Delivery O2 Flow Rate FiO2 10/27/19 12:00 97.0 60 18 145/51 (82) 98 10/27/19 09:31 62 149/50 10/27/19 09:31 62 149/50 10/27/19 08:19 Nasal Cannula 2.0 10/27/19 08:00 63 10/27/19 08:00 96.9 62 20 149/50 (83) 99 10/27/19 04:00 97.2 70 19 150/60 (90) 100 10/27/19 04:00 56 10/27/19 00:00 65 10/27/19 00:00 97.3 64 19 154/53 (86) 100 10/26/19 21:11 69 153/55 10/26/19 21:00 Nasal Cannula 2.0 10/26/19 20:00 70 10/26/19 20:00 97.0 69 18 153/55 (87) 100 10/26/19 17:49 161/66 10/26/19 16:00 78 10/26/19 16:00 97.0 78 18 161/66 (97) 98 Intake and Output 10/26/19 10/27/19 19:00 07:00 Intake Total 575 ml 200 ml Output Total 270 ml 500 ml Balance 305 ml -300 ml Intake Oral 220 ml IV Total 355 ml 200 ml Output Urine Total 270 ml 500 ml Current Medications Medications (Trade) Dose Ordered Sig/Cammy Route PRN Reason Start Time Stop Time Status Last Admin Dose Admin Acetaminophen (Tylenol) 650 mg Q6H PRN ORAL Pain Scale (3-5) 10/26/19 13:00 11/23/19 06:59 10/27/19 12:11 Amlodipine Besylate (Norvasc) 5 mg DAILY ORAL 10/27/19 09:00 11/25/19 08:59 10/27/19 09:31 Atorvastatin Calcium (Lipitor) 10 mg BEDTIME ORAL 10/26/19 21:00 01/21/20 20:59 10/26/19 21:11 Carvedilol (Coreg) 12.5 mg EVERY 12 HOURS ORAL 10/26/19 21:00 11/23/19 20:59 10/27/19 09:31 Ceftriaxone Sodium 2 gm/ Dextrose 55 ml @ 110 mls/hr Q24H IVPB 10/27/19 12:00 10/31/19 11:59 10/27/19 11:32 Dextrose (Dextrose 50%) 25 ml Q30M PRN IV Hypoglycemia 10/26/19 13:15 01/20/20 21:44 Dextrose (Dextrose 50%) 50 ml Q30M PRN IV Hypoglycemia 10/26/19 13:15 01/20/20 21:44 Docusate Sodium (Colace) 100 mg TID ORAL 10/26/19 18:00 11/22/19 17:59 10/27/19 12:10 Epoetin William (Epoetin William-EPBX(NON ESRD)) 2,000 unit SUBQ 10/27/19 21:00 01/23/20 20:59 Epoetin William (Epoetin William-EPBX(NON ESRD)) 8,000 unit SUBQ 10/27/19 21:00 01/23/20 20:59 Gabapentin (Neurontin) 100 mg THREE TIMES A DAY ORAL 10/26/19 18:00 11/22/19 17:59 10/27/19 12:10 Haloperidol (Haldol) 5 mg Q12H PRN ORAL Agitation 10/26/19 12:57 12/10/19 12:56 Haloperidol Lactate (Haldol) 5 mg Q6H PRN IM Agitation 10/26/19 12:57 12/10/19 12:56 Hydralazine HCl (Apresoline) 10 mg Q4H PRN IV For High Blood Pressure 10/26/19 13:07 01/24/20 13:06 10/26/19 17:49 Levothyroxine Sodium (Synthroid) 50 mcg DAILY IV 10/27/19 09:00 11/23/19 13:59 10/27/19 09:37 Pantoprazole (Protonix) 40 mg EVERY 12 HOURS IVP 10/26/19 21:00 11/22/19 08:59 10/27/19 09:30 Rivaroxaban (Xarelto) 15 mg QPM ORAL 10/27/19 16:30 01/25/20 16:29 Sennosides (Senokot) 8.6 mg HSPRN PRN ORAL Constipation 10/26/19 12:58 11/25/19 12:57 Sevelamer Carbonate (Renvela) 1,600 mg THREE TIMES A DAY ORAL 10/26/19 18:00 01/21/20 17:59 10/27/19 12:10 Sodium Bicarbonate 50 ml/ Dextrose 1,050 ml @ 50 mls/hr Q21H IV 10/27/19 05:00 11/26/19 04:59 10/27/19 05:06 Vancomycin HCl (Vanco pharmacy to dose) 1 ea DAILY PRN MISC Per rx protocol 10/27/19 09:00 11/21/19 22:14 Vitamin B Complex/ Vit C/Folic Acid (Nephrovite) 1 tab DAILY ORAL 10/27/19 09:00 11/22/19 08:59 10/27/19 09:30 Laboratory Tests 10/26/19 13:20: Urine Color Pale yellow, Urine Appearance Slightly cloudy, Urine pH 5, Urine Specific [place] 1.020, Urine Protein 4+H, Urine Glucose (UA) 1+H, Urine Ketones 1+H, Urine Blood 5+H, Urine Nitrite Negative, Urine Bilirubin Negative, Urine Urobilinogen Normal, Urine Leukocyte Esterase 1+H, Urine RBC 30-40H, Urine WBC 5-10H, Urine Squamous Epithelial Cells Few, Urine Amorphous Sediment FewH, Urine Bacteria Few 10/27/19 09:53: Sodium Level 136, Potassium Level 3.9, Chloride Level 102, Carbon Dioxide Level 26, Anion Gap 8, Blood Urea Nitrogen 68H, Creatinine 3.3H, Estimat Glomerular Filtration Rate 18.1, Glucose Level 163H, Calcium Level 9.0, Phosphorus Level 6.1H, Magnesium Level 2.1, Total Bilirubin 0.2, Aspartate Amino Transf (AST/SGOT ) 44H, Alanine Aminotransferase (ALT/SGPT) 29, Alkaline Phosphatase 109, Total Protein 6.1L, Albumin 2.6L, Globulin 3.5, Albumin/Globulin Ratio 0.7L 10/27/19 11:41: POC Whole Blood Glucose 190H Height (Feet): 5 Height (Inches): 8.00 Weight (Pounds): 188 General Appearance: no apparent distress, lethargic Cardiovascular: normal rate Respiratory/Chest: decreased breath sounds Abdomen: soft, distended Objective No change Naveed Vanegas MD Oct 27, 2019 12:34
--- NOTE | 2019-10-27 14:33 | Infectious Diseases Prog Note ---
Assessment/Plan 79yo M from SNF who p/w hypoglycemia and resp failure: Acute hypoxic respiratory failure, on BiPAP> now on 2l NC> RA Rapid COVID neg x2 (10/21, 10/24) Pneumonia on CXR Volume overload -10/25 CXR: Bilateral alveolar densities are unchanged -10/24 sp cx normal resp demario (prelim) -10/23 CXR: 1. Small layering right pleural effusion, not significantly changed. The previously noted small left pleural effusion is not as evident.Prominent lung markings and haziness, right greater left, which may be related to pulmonary vascular congestion versus pneumonitis. This is not significantly changed.. Subsegmental atelectasis versus infiltrate in the medial left lung base, also not significantly changed. 10/21 CXR: 1. Small bilateral pleural effusions. Bibasilar atelectasis versus pneumonia. 2. Prominent lung markings and hazy opacities in right greater than left lungs may represent artifact versus pulmonary vasculature congestion and edema versus infectious/inflammatory process. Afebrile No leukocytosis Anemia to 6.8, improved UA neg, UCx neg R/o bacteremia 10/21 BCx NTD ALEXIS on CKD, improving Plan: Cont CTX 2g IV daily #4/ for pneumonia Dc empiric vancomycin IV #5 COVID neg x2; F/u sp cx Trend resp status Monitor CBC, CMP D/w RN Thank you for this consult. [facility] will continue to follow. Subjective Allergies: Coded Allergies: PENICILLINS (Verified Allergy, Unknown, 10/25/19) tolerated Ceftriaxone afebrile at no leukocytosis Objective Last 24 Hour Vital Signs Date Time Temp Pulse Resp B/P (MAP) Pulse Ox O2 Delivery O2 Flow Rate FiO2 10/27/19 12:00 97.0 60 18 145/51 (82) 98 10/27/19 11:55 60 10/27/19 09:31 62 149/50 10/27/19 09:31 62 149/50 10/27/19 08:19 Nasal Cannula 2.0 10/27/19 08:00 63 10/27/19 08:00 96.9 62 20 149/50 (83) 99 10/27/19 04:00 97.2 70 19 150/60 (90) 100 10/27/19 04:00 56 10/27/19 00:00 65 8/5/20 00:00 97.3 64 19 154/53 (86) 100 10/26/19 21:11 69 153/55 10/26/19 21:00 Nasal Cannula 2.0 10/26/19 20:00 70 10/26/19 20:00 97.0 69 18 153/55 (87) 100 10/26/19 17:49 161/66 10/26/19 16:00 78 10/26/19 16:00 97.0 78 18 161/66 (97) 98 Height (Feet): 5 Height (Inches): 8.00 Weight (Pounds): 188 Gen: Older man, NAD Pulm: BL chest rise Abd: Obese, soft, NTND Ext: No c/c/e, 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 Microbiology Date/Time Source Procedure Growth Status 10/25/19 09:00 Nasopharynx SARS-CoV-2 RdRp Gene Assay - Final Complete 10/25/19 04:00 Sputum Expectorated Gram Stain - Final Complete 10/25/19 04:00 Sputum Expectorated Sputum Culture - Final NORMAL UPPER RESPIRATORY DEMARIO PRESENT Complete Laboratory Tests Test 10/27/19 09:53 10/27/19 11:41 Sodium Level 136 MMOL/L (136-145) Potassium Level 3.9 MMOL/L (3.5-5.1) Chloride Level 102 MMOL/L (98-107) Carbon Dioxide Level 26 MMOL/L (21-32) Anion Gap 8 mmol/L (5-15) Blood Urea Nitrogen 68 mg/dL (7-18) H Creatinine 3.3 MG/DL (0.55-1.30) H Estimat Glomerular Filtration Rate 18.1 mL/min (>60) Glucose Level 163 MG/DL (74-106) H Calcium Level 9.0 MG/DL (8.5-10.1) Phosphorus Level 6.1 MG/DL (2.5-4.9) H Magnesium Level 2.1 MG/DL (1.8-2.4) Total Bilirubin 0.2 MG/DL (0.2-1.0) Aspartate Amino Transf (AST/SGOT) 44 U/L (15-37) H Alanine Aminotransferase (ALT/SGPT) 29 U/L (12-78) Alkaline Phosphatase 109 U/L (46-116) Total Protein 6.1 G/DL (6.4-8.2) L Albumin 2.6 G/DL (3.4-5.0) L Globulin 3.5 g/dL Albumin/Globulin Ratio 0.7 (1.0-2.7) L POC Whole Blood Glucose 190 MG/DL (74-106) H Current Medications Medications (Trade) Dose Ordered Sig/Cammy Route PRN Reason Start Time Stop Time Status Last Admin Dose Admin Acetaminophen (Tylenol) 650 mg Q6H PRN ORAL Pain Scale (3-5) 10/26/19 13:00 11/23/19 06:59 10/27/19 12:11 Amlodipine Besylate (Norvasc) 5 mg DAILY ORAL 10/27/19 09:00 11/25/19 08:59 10/27/19 09:31 Atorvastatin Calcium (Lipitor) 10 mg BEDTIME ORAL 10/26/19 21:00 01/21/20 20:59 10/26/19 21:11 Carvedilol (Coreg) 12.5 mg EVERY 12 HOURS ORAL 10/26/19 21:00 11/23/19 20:59 10/27/19 09:31 Ceftriaxone Sodium 2 gm/ Dextrose 55 ml @ 110 mls/hr Q24H IVPB 10/27/19 12:00 10/31/19 11:59 10/27/19 11:32 Dextrose (Dextrose 50%) 25 ml Q30M PRN IV Hypoglycemia 10/26/19 13:15 01/20/20 21:44 Dextrose (Dextrose 50%) 50 ml Q30M PRN IV Hypoglycemia 10/26/19 13:15 01/20/20 21:44 Docusate Sodium (Colace) 100 mg TID ORAL 10/26/19 18:00 11/22/19 17:59 10/27/19 12:10 Epoetin William (Epoetin William-EPBX(NON ESRD)) 2,000 unit FRI-FRI-FRI SUBQ 10/27/19 21:00 01/23/20 20:59 Epoetin William (Epoetin William-EPBX(NON ESRD)) 8,000 unit FRI-FRI-FRI SUBQ 10/27/19 21:00 01/23/20 20:59 Gabapentin (Neurontin) 100 mg THREE TIMES A DAY ORAL 10/26/19 18:00 11/22/19 17:59 10/27/19 12:10 Haloperidol (Haldol) 5 mg Q12H PRN ORAL Agitation 10/26/19 12:57 12/10/19 12:56 Haloperidol Lactate (Haldol) 5 mg Q6H PRN IM Agitation 10/26/19 12:57 12/10/19 12:56 Hydralazine HCl (Apresoline) 10 mg Q4H PRN IV For High Blood Pressure 10/26/19 13:07 01/24/20 13:06 10/26/19 17:49 Levothyroxine Sodium (Synthroid) 50 mcg DAILY IV 10/27/19 09:00 11/23/19 13:59 10/27/19 09:37 Pantoprazole (Protonix) 40 mg EVERY 12 HOURS IVP 10/26/19 21:00 11/22/19 08:59 10/27/19 09:30 Rivaroxaban (Xarelto) 15 mg QPM ORAL 10/27/19 16:30 01/25/20 16:29 Sennosides (Senokot) 8.6 mg HSPRN PRN ORAL Constipation 10/26/19 12:58 11/25/19 12:57 Sevelamer Carbonate (Renvela) 1,600 mg THREE TIMES A DAY ORAL 10/26/19 18:00 01/21/20 17:59 10/27/19 12:10 Sodium Bicarbonate 50 ml/ Dextrose 1,050 ml @ 50 mls/hr Q21H IV 10/27/19 05:00 11/26/19 04:59 10/27/19 05:06 Vancomycin HCl ([facility] pharmacy to dose) 1 ea DAILY PRN MISC Per rx protocol 10/27/19 09:00 11/21/19 22:14 Vitamin B Complex/ Vit C/Folic Acid (Nephrovite) 1 tab DAILY ORAL 10/27/19 09:00 11/22/19 08:59 10/27/19 09:30 Trinity Pan M.D. Oct 27, 2019 14:33
[2019-10-27 16:00] VITALS: BP 121/52
[2019-10-27] MEDS: Xarelto 15mg tab ORAL SCH (16:21)
[2019-10-27 20:00] VITALS: BP 117/57
[2019-10-27] MEDS ORDERED: Epoetin Alfa-EPBX (NON ESRD) 2000 units/ml vial SUBQ SCH (21:00)
[2019-10-27] MEDS ORDERED: Epoetin Alfa-EPBX (NON ESRD)4000 units/ml vial SUBQ SCH (21:00)
[2019-10-27] MEDS: Epoetin Alfa-EPBX (NON ESRD)10,000 unit/ml vial SUBQ SCH (22:20)
--- NOTE | 2019-10-27 23:35 | Psych Consult Progress Note ---
Psychiatry Progress Note Psychiatry Progress Note Subjective pt's mental condition is the same the pt is still have episodes o agitations benefits from restraints. sleep and appetite adequate Medications Current Medications Medications (Trade) Dose Ordered Sig/Cammy Route PRN Reason Start Time Stop Time Status Last Admin Dose Admin Acetaminophen (Tylenol) 650 mg Q6H PRN ORAL Pain Scale (3-5) 10/26/19 13:00 11/23/19 06:59 10/27/19 12:11 Amlodipine Besylate (Norvasc) 5 mg DAILY ORAL 10/27/19 09:00 11/25/19 08:59 10/27/19 09:31 Atorvastatin Calcium (Lipitor) 10 mg BEDTIME ORAL 10/26/19 21:00 01/21/20 20:59 10/27/19 22:20 Carvedilol (Coreg) 12.5 mg EVERY 12 HOURS ORAL 10/26/19 21:00 11/23/19 20:59 10/27/19 22:19 Ceftriaxone Sodium 2 gm/ Dextrose 55 ml @ 110 mls/hr Q24H IVPB 10/27/19 12:00 10/31/19 11:59 10/27/19 11:32 Dextrose (Dextrose 50%) 25 ml Q30M PRN IV Hypoglycemia 10/26/19 13:15 01/20/20 21:44 Dextrose (Dextrose 50%) 50 ml Q30M PRN IV Hypoglycemia 10/26/19 13:15 01/20/20 21:44 Docusate Sodium (Colace) 100 mg TID ORAL 10/26/19 18:00 11/22/19 17:59 10/27/19 17:40 Epoetin William (Epoetin William-EPBX(NON ESRD)) 10,000 unit FRI-FRI-FRI SUBQ 10/27/19 21:00 01/25/20 20:59 10/27/19 22:20 Gabapentin (Neurontin) 100 mg THREE TIMES A DAY ORAL 10/26/19 18:00 11/22/19 17:59 10/27/19 17:40 Haloperidol (Haldol) 5 mg Q12H PRN ORAL Agitation 10/26/19 12:57 12/10/19 12:56 10/27/19 22:20 Haloperidol Lactate (Haldol) 5 mg Q6H PRN IM Agitation 10/26/19 12:57 12/10/19 12:56 Hydralazine HCl (Apresoline) 10 mg Q4H PRN IV For High Blood Pressure 10/26/19 13:07 01/24/20 13:06 10/26/19 17:49 Levothyroxine Sodium (Synthroid) 50 mcg DAILY IV 10/27/19 09:00 11/23/19 13:59 10/27/19 09:37 Pantoprazole (Protonix) 40 mg EVERY 12 HOURS IVP 10/26/19 21:00 11/22/19 08:59 10/27/19 09:30 Rivaroxaban (Xarelto) 15 mg QPM ORAL 10/27/19 16:30 01/25/20 16:29 10/27/19 16:21 Sennosides (Senokot) 8.6 mg HSPRN PRN ORAL Constipation 10/26/19 12:58 11/25/19 12:57 10/27/19 16:20 Sevelamer Carbonate (Renvela) 1,600 mg THREE TIMES A DAY ORAL 10/26/19 18:00 01/21/20 17:59 10/27/19 17:40 Sodium Bicarbonate 50 ml/ Dextrose 1,050 ml @ 50 mls/hr Q21H IV 10/27/19 05:00 11/26/19 04:59 10/27/19 05:06 Vitamin B Complex/ Vit C/Folic Acid (Nephrovite) 1 tab DAILY ORAL 10/27/19 09:00 11/22/19 08:59 10/27/19 09:30 Neurological/Psychiatric: Denies: no symptoms, anxiety, depressed, emotional problems, headache, numbness, paresthesia, pre-existing deficit, seizure, tingling, tremors, weakness, other Allergies: Coded Allergies: PENICILLINS (Verified Allergy, Unknown, 10/25/19) tolerated Ceftriaxone Objective Data Height (Feet): 5 Height (Inches): 8.00 Weight (Pounds): 188 General Appearance: no apparent distress, alert, confused, agitated Additional Comments: awake, confused, and disoriented. Mood is agitated. Affect is flat. Thought process, there is a paucity of thought content. Thought content, no suicidal or homicidal ideation. Cognition is impaired. Insight and judgment impaired. Assessment/Plan Assessment/Plan: ASSESSMENT: 1. Dementia with behavior disturbance. 2. Acute encephalopathy. PLAN: 1. We will continue the Haldol IM 2. Discussed with the nurse. Dada Finch MD Oct 27, 2019 23:35
[2019-10-28] VITALS (7 sets, daily range): BP systolic 107–146; BP diastolic 40–84
[2019-10-28] MEDS: Sodium Bicarbonate 50 ML in D5W 1000ml 1,000 ML IV SCH ×2 (02:00→23:59)
[2019-10-28 07:24] LABS: BASOPHILS % (AUTO) 1.3 % (0.0-2.0); LYMPHOCYTES % (AUTO) 16.1 % (20.0-45.0); MEAN CORPUSCULAR VOLUME 100 FL (80-99); NEUTROPHILS % (AUTO) 74.6 % (45.0-75.0); PLATELET COUNT 200 K/UL (150-450); RED CELL DISTRIBUTION WIDTH 15.1 % (11.6-14.8)
[2019-10-28 07:49] LABS: ALANINE AMINOTRANSFERASE 27 U/L (12-78); ALBUMIN 2.2 G/DL (3.4-5.0); ALBUMIN/GLOBULIN RATIO 0.6 (1.0-2.7); ALKALINE PHOSPHATASE 103 U/L (46-116); ANION GAP 7 mmol/L (5-15); ASPARTATE AMINO TRANSFERASE 45 U/L (15-37); BILIRUBIN,TOTAL 0.2 MG/DL (0.2-1.0); BLOOD UREA NITROGEN 71 mg/dL (7-18); CALCIUM 8.5 MG/DL (8.5-10.1); CARBON DIOXIDE 26 MMOL/L (21-32); CHLORIDE 100 MMOL/L (98-107); CREATININE 3.8 MG/DL (0.55-1.30); PHOSPHORUS 6.9 MG/DL (2.5-4.9); POTASSIUM 3.8 MMOL/L (3.5-5.1); SODIUM 133 MMOL/L (136-145)
[2019-10-28] MEDS: Nephrovite tab (Rena-Vite) ORAL SCH (08:55)
[2019-10-28] MEDS: Pantoprazole Inj IVP SCH ×2 (08:55→21:07)
[2019-10-28] MEDS: Docusate 100mg cap ORAL SCH ×3 (08:55→17:58)
[2019-10-28] MEDS: Carvedilol 12.5mg tab ORAL SCH (09:00)
--- NOTE | 2019-10-28 10:14 | Pulmonology Progress Note ---
Reema Hanna RAISIN SEPARATOR OPERATOR 10/28/19 1014: Subjective ROS Limited/Unobtainable: No Allergies: Coded Allergies: PENICILLINS (Verified Allergy, Unknown, 10/25/19) tolerated Ceftriaxone Subjective intermittently on o2 via NC and RA denies CP, SOB, cough remans afebrile, no leukocytosis now on tele denies SOB, CP pulled out Lyles cathete, significant amount of bleeding noted, Objective Last 24 Hour Vital Signs Date Time Temp Pulse Resp B/P (MAP) Pulse Ox O2 Delivery O2 Flow Rate FiO2 10/28/19 09:00 54 98/43 10/28/19 09:00 54 98/43 10/28/19 08:33 Nasal Cannula 2.0 10/28/19 08:00 98.4 54 18 107/41 (63) 100 10/28/19 08:00 58 10/28/19 04:00 54 10/28/19 04:00 97.0 57 16 112/51 (71) 95 10/28/19 00:00 59 10/28/19 00:00 97.0 58 20 146/50 (82) 95 10/27/19 22:19 60 117/60 10/27/19 21:00 Nasal Cannula 2.0 10/27/19 20:00 56 10/27/19 20:00 97.0 59 18 117/57 (77) 95 10/27/19 16:00 55 10/27/19 16:00 97.2 54 20 121/52 (75) 97 10/27/19 12:00 97.0 60 18 145/51 (82) 98 10/27/19 11:55 60 Intake and Output 10/27/19 10/28/19 19:00 07:00 Intake Total 1150 ml Output Total 150 ml 200 ml Balance 1000 ml -200 ml Intake Oral 600 ml IV Total 550 ml Output Urine Total 150 ml 200 ml Objective General Appearance: no apparent distress, Mexican speaking confused male, Lines, tubes and drains: peripheral HEENT: normocephalic, atraumatic, anicteric, mucous membranes moist, O2 via NC Respiratory/Chest: BS clear Cardiovascular/Chest: normal rate, regular rhythm Abdomen: normal bowel sounds, non tender, soft : Lyles woth hematuria Extremities: partially amputated BL foot Skin Exam: warm/dry Neurologic: abnormal gait, alert, oriented , confused Musculoskeletal: atrophy - BLE Laboratory Tests 10/27/19 11:41: POC Whole Blood Glucose 190H 10/27/19 17:00: Stool Occult Blood [Pending] 10/28/19 06:49: White Blood Count 4.0L, Red Blood Count 2.60L, Hemoglobin 8.0L, Hematocrit 26.0L , Mean Corpuscular Volume 100H, Mean Corpuscular Hemoglobin 30.8, Mean Corpuscular Hemoglobin Concent 30.8L, Red Cell Distribution Width 15.1H, Platelet Count 200, Mean Platelet Volume 7.3, Neutrophils (%) (Auto) 74.6, Lymphocytes (%) (Auto) 16.1L, Monocytes (%) (Auto) 6.0, Eosinophils (%) (Auto) 2.0, Basophils (%) (Auto) 1.3, Sodium Level 133L, Potassium Level 3.8, Chloride Level 100, Carbon Dioxide Level 26, Anion Gap 7, Blood Urea Nitrogen 71H, Creatinine 3.8H, Estimat Glomerular Filtration Rate 15.4, Glucose Level 165H, Calcium Level 8.5, Phosphorus Level 6.9H, Magnesium Level 2.0, Total Bilirubin 0.2, Aspartate Amino Transf (AST/SGOT) 45H, Alanine Aminotransferase (ALT/SGPT) 27, Alkaline Phosphatase 103, C-Reactive Protein, Quantitative 1.6H, Pro-B-Type Natriuretic Peptide 76164I, Total Protein 5.7L, Albumin 2.2L, Globulin 3.5, Albumin/Globulin Ratio 0.6L Current Medications Medications (Trade) Dose Ordered Sig/Cammy Route PRN Reason Start Time Stop Time Status Last Admin Dose Admin Acetaminophen (Tylenol) 650 mg Q6H PRN ORAL Pain Scale (3-5) 10/26/19 13:00 11/23/19 06:59 10/27/19 12:11 Amlodipine Besylate (Norvasc) 5 mg DAILY ORAL 10/27/19 09:00 11/25/19 08:59 10/27/19 09:31 Atorvastatin Calcium (Lipitor) 10 mg BEDTIME ORAL 10/26/19 21:00 01/21/20 20:59 10/27/19 22:20 Carvedilol (Coreg) 12.5 mg EVERY 12 HOURS ORAL 10/26/19 21:00 11/23/19 20:59 10/27/19 22:19 Ceftriaxone Sodium 2 gm/ Dextrose 55 ml @ 110 mls/hr Q24H IVPB 10/27/19 12:00 10/31/19 11:59 10/27/19 11:32 Dextrose (Dextrose 50%) 25 ml Q30M PRN IV Hypoglycemia 10/26/19 13:15 01/20/20 21:44 Dextrose (Dextrose 50%) 50 ml Q30M PRN IV Hypoglycemia 10/26/19 13:15 01/20/20 21:44 Docusate Sodium (Colace) 100 mg TID ORAL 10/26/19 18:00 11/22/19 17:59 10/28/19 08:55 Epoetin William (Epoetin William-EPBX(NON ESRD)) 10,000 unit SUBQ 10/27/19 21:00 01/25/20 20:59 10/27/19 22:20 Gabapentin (Neurontin) 100 mg THREE TIMES A DAY ORAL 10/26/19 18:00 11/22/19 17:59 10/28/19 08:55 Haloperidol (Haldol) 5 mg Q12H PRN ORAL Agitation 10/26/19 12:57 12/10/19 12:56 10/27/19 22:20 Haloperidol Lactate (Haldol) 5 mg Q6H PRN IM Agitation 10/26/19 12:57 12/10/19 12:56 Hydralazine HCl (Apresoline) 10 mg Q4H PRN IV For High Blood Pressure 10/26/19 13:07 01/24/20 13:06 10/26/19 17:49 Levothyroxine Sodium (Synthroid) 50 mcg DAILY IV 10/27/19 09:00 11/23/19 13:59 10/28/19 09:07 Pantoprazole (Protonix) 40 mg EVERY 12 HOURS IVP 10/26/19 21:00 11/22/19 08:59 10/28/19 08:55 Rivaroxaban (Xarelto) 15 mg QPM ORAL 10/27/19 16:30 01/25/20 16:29 10/27/19 16:21 Sennosides (Senokot) 8.6 mg HSPRN PRN ORAL Constipation 10/26/19 12:58 11/25/19 12:57 10/27/19 16:20 Sevelamer Carbonate (Renvela) 1,600 mg THREE TIMES A DAY ORAL 10/26/19 18:00 01/21/20 17:59 10/28/19 08:55 Sodium Bicarbonate 50 ml/ Dextrose 1,050 ml @ 50 mls/hr Q21H IV 10/27/19 05:00 11/26/19 04:59 10/27/19 05:06 Vitamin B Complex/ Vit C/Folic Acid (Nephrovite) 1 tab DAILY ORAL 10/27/19 09:00 11/22/19 08:59 10/28/19 08:55 Assessment/Plan Assessment/Plan ASSESSMENT Acute hypoxemic hypercapnic respiratory failure requiring BiPAP -resolved Acute metabolic encephalopathy likely due to hypoglycemia Diabetes mellitus with initial hypoglycemia Probably pneumonia Aspiration risk Acute kidney injury on chronic kidney disease Severe anemia requiring blood transfusion Metabolic acidosis Electrolyte imbalance :hyponatremia, hyperkalemia HTN with HTN urgency Dysphagia Hematuria 2 to pt pulled off his Lyles catheter PLAN OF CARE tele off BiPAP now on O2 via NC intermittently as well as RA hypercapnia resolved titrate FiO2 to keep sat > 90% pulm toilet 10/21 and 10/24 rapid COVID NGT, CXR 10/23 -> 1. Small layering right pleural effusion, not significantly changed. The previously noted small left pleural effusion is not as evident. 2. Prominent lung markings and haziness, right greater left, which may be related to pulmonary vascular congestion versus pneumonitis. This is not significantly changed. 3. Subsegmental atelectasis versus infiltrate in the medial left lung base, also not significantly changed. BiPAP prn empiric abx as per ID recs -> Ceftriaxone and Vanco BCX 10/21 NGTD UCX NGT SCX if able CXR 10/25 -> stable , no significant change from before Niru Duplex BLE 10/25 -> NGT ECHO with pEF 55-60% on chronic a/c with Xarelto ?unclear reason monitor volumes swallow eval with aspiration risk diet texture as per ST recs with strict asp precautions and assistance with meals gentle IV dextrose with bicarb, monitor acid base status , HgA1c -6.1 hold oral anti-glycemic SSI prn ; recommend sensitive SSI AMS was most likely due to episode of hypoglycemia CT head NGT for acute ICP renal US avoid nephrotoxic s/p Kayexalate and sodium bicarb gentle IVF creat up to 3.8 today f/up with nephro recs BP management with CCB and Hydralazine prn for BP spikes monitor HH with goal to keep Hgb above 7 stool OB anemia w/up noted , heme on board s/p 1 dose of Venofer now on EPO lost blood and now hematuria, check CBC stat GI prophayxlis supportive care thanks for a consult! case discussed and evaluated by supervising physician Leoncio Galan MD 10/28/19 1428: Subjective Allergies: Coded Allergies: PENICILLINS (Verified Allergy, Unknown, 10/25/19) tolerated Ceftriaxone Assessment/Plan Assessment/Plan Patient seen and examined with RAISIN SEPARATOR OPERATOR. Agree with above A&P as it reflects our joint deliberations. Reema Hanna NP Oct 28, 2019 10:14 Leoncio Galan MD Oct 28, 2019 14:28
--- NOTE | 2019-10-28 11:22 | Nephrology Progress Note ---
Assessment/Plan Problem List: (1) Renal failure (ARF), acute on chronic (2) Metabolic acidosis (3) Electrolyte imbalance Assessment: Hyponatremia and hyperkalemia (4) Anemia (5) CHF (congestive heart failure) Assessment 79-year-old male is admitted for hypoglycemia Patient has renal failure which appears to be acute on chronic Hyperkalemia Hyponatremia CHF, pleural effusion, pneumonia Anemia Metabolic acidosis Hypothyroidism Plan October 27: Patient pulled out the Lyles catheter. Serum creatinine went up to 3.8. Blood pressure somewhat low. Heart rate in 50s. Will discontinue Coreg. We will continue to monitor renal parameters. October 26: Serum creatinine lower again today. Will abort the dialysis plan. Continue per consultants. Continue to monitor renal parameters. Medication list reviewed. October 25: Clinically improving. Serum creatinine lower. Urine output increased. No dialysis planned at this time. Continue per consultants. October 24: Patient's respiratory status somewhat improved. Serum creatinine down to 3.9. Urinary output somewhat increased. Will hold placement of dialysis catheter at this time. Blood pressure medication adjusted. Continue to monitor renal parameters. Per orders. October 23: Patient remains on BiPAP. More Kayexalate ordered. Will consider hemodialysis to correct fluid overload and hyperkalemia and acidosis. Will discuss with PMD. Meanwhile IV Synthroid started. Discussed with RN Timothy Patient already transfused 1 unit for severe anemia previously Will initiate Epogen 10,000 units subcutaneously 1 dose of IV iron Venofer 200 g IV Kayexalate for hyperkalemia as needed 2D echocardiogram ordered, ejection fraction is reported normal Kidney ultrasound ordered: Kidneys: Right kidney measures 9.1 cm in length. No hydronephrosis or stone. Left kidney not visualized due to patient's body habitus. Avoid nephrotoxic's Monitor renal parameters Will hold insulin and hypoglycemic agents until hypoglycemia is reasonably resolved Subjective ROS Limited/Unobtainable: No Constitutional: Reports: malaise Objective Objective Last 24 Hour Vital Signs Date Time Temp Pulse Resp B/P (MAP) Pulse Ox O2 Delivery O2 Flow Rate FiO2 10/28/19 09:00 54 98/43 10/28/19 09:00 54 98/43 10/28/19 08:33 Nasal Cannula 2.0 10/28/19 08:00 98.4 54 18 107/41 (63) 100 10/28/19 08:00 58 10/28/19 04:00 54 10/28/19 04:00 97.0 57 16 112/51 (71) 95 10/28/19 00:00 59 10/28/19 00:00 97.0 58 20 146/50 (82) 95 10/27/19 22:19 60 117/60 10/27/19 21:00 Nasal Cannula 2.0 10/27/19 20:00 56 10/27/19 20:00 97.0 59 18 117/57 (77) 95 10/27/19 16:00 55 10/27/19 16:00 97.2 54 20 121/52 (75) 97 10/27/19 12:00 97.0 60 18 145/51 (82) 98 10/27/19 11:55 60 Intake and Output 10/27/19 10/28/19 19:00 07:00 Intake Total 1150 ml Output Total 150 ml 200 ml Balance 1000 ml -200 ml Intake Oral 600 ml IV Total 550 ml Output Urine Total 150 ml 200 ml Laboratory Tests 10/27/19 11:41: POC Whole Blood Glucose 190H 10/27/19 17:00: Stool Occult Blood [Pending] 10/28/19 06:49: White Blood Count 4.0L, Red Blood Count 2.60L, Hemoglobin 8.0L, Hematocrit 26.0L , Mean Corpuscular Volume 100H, Mean Corpuscular Hemoglobin 30.8, Mean Corpuscular Hemoglobin Concent 30.8L, Red Cell Distribution Width 15.1H, Platelet Count 200, Mean Platelet Volume 7.3, Neutrophils (%) (Auto) 74.6, Lymphocytes (%) (Auto) 16.1L, Monocytes (%) (Auto) 6.0, Eosinophils (%) (Auto) 2.0, Basophils (%) (Auto) 1.3, Sodium Level 133L, Potassium Level 3.8, Chloride Level 100, Carbon Dioxide Level 26, Anion Gap 7, Blood Urea Nitrogen 71H, Creatinine 3.8H, Estimat Glomerular Filtration Rate 15.4, Glucose Level 165H, Calcium Level 8.5, Phosphorus Level 6.9H, Magnesium Level 2.0, Total Bilirubin 0.2, Aspartate Amino Transf (AST/SGOT) 45H, Alanine Aminotransferase (ALT/SGPT) 27, Alkaline Phosphatase 103, C-Reactive Protein, Quantitative 1.6H, Pro-B-Type Natriuretic Peptide [id number], Total Protein 5.7L, Albumin 2.2L, Globulin 3.5, Albumin/Globulin Ratio 0.6L Height (Feet): 5 Height (Inches): 8.00 Weight (Pounds): 188 General Appearance: no apparent distress, lethargic Cardiovascular: bradycardia Respiratory/Chest: decreased breath sounds Abdomen: distended Objective No change Naveed Vanegas MD Oct 28, 2019 11:22
[2019-10-28] MEDS: cefTRIAXone 2 GM in D5W 55 ML IVPB SCH (11:25)
--- NOTE | 2019-10-28 12:32 | General Progress Note ---
Assessment/Plan Assessment/Plan: Covering Dr. Chang ASSESSMENT AND RECOMMENDATIONS: # Anemia of chronic disease due to underlying chronic medical issues, multifactorial --> Anemia w/u has been reviewed. --> no evidence of hemolysis is noted, peripheral smear has been reviewed --> hgb goal is >7, transfuse as needed --> currently remains stable, occult blood negative --> hgb 8.4->8.6->8.3->8 --> some blood loss due to hematuria after inflated reyes pulled 8/6 am --> EPOGEN Started # Acute kidney injury r/o potential reversible component --> reviewed meds, those that are renally cleared removed --> as per renal recs, appreciated # Hypertension, essential --> sbp goal is <140, consider anti-htn as needed --> currently started on hyralazine 25mg po q6h prn sbp >140 # CHF - hx of CHF --> obtain a 2d echo per cards --> diuresis with lasix as needed --> cardiology recs appreciated #. Leukocytosis with underlying infectionv stress reaction HISTORY --> per id and better --> for infection, ABX ctx/vanc #. Bilateral lower extremity amputee, metatarsal several years ago #. Hyperkalemia -- kayxelate as needed #. Dvt ppx scds The time the note was entered does not necessarily correspond to the time the patient was seen. GREATLY APPRECIATE CONSULTATION. Subjective Constitutional: Denies: no symptoms, chills, diaphoresis, fever, malaise, weakness, other HEENT: Denies: no symptoms, eye pain, blurred vision, tearing, double vision, ear pain, ear discharge, nose pain, nose congestion, throat pain, throat swelling, mouth pain, mouth swelling, other Cardiovascular: Denies: no symptoms, chest pain, edema, irregular heart rate, lightheadedness, palpitations, syncope, other Respiratory: Denies: no symptoms, cough, orthopnea, shortness of breath, SOB with excertion, SOB at rest, sputum, stridor, wheezing, other Gastrointestinal/Abdominal: Denies: no symptoms, abdomen distended, abdominal pain, black stools, tarry stools, blood in stool, constipated, diarrhea, difficulty swallowing, nausea, poor appetite, poor fluid intake, rectal bleeding , vomiting, other Genitourinary: Denies: no symptoms, burning, discharge, frequency, flank pain, hematuria, incontinence, pain, urgency, other Endocrine: Denies: no symptoms, excessive sweating, flushing, intolerance to cold, intolerance to heat, increased hunger, increased thirst, increased urine, unexplained weight gain, unexplained weight loss, other Allergies: Coded Allergies: PENICILLINS (Verified Allergy, Unknown, 10/25/19) tolerated Ceftriaxone Subjective 10/[address] Chang, to do best to avoid haldol, continue restraints, jag rn, on nc, feeling better 10/25 still with some agitation overnight, meds reviewed, jag rn, haldol given in AM 10/26 is on 2l nc, also is on restraints, no night sweats, no bleeding 10/27 reyes catheter has been removed by patient, and resinserted, bed sheets, with bright red blood on exam Objective Last 24 Hour Vital Signs Date Time Temp Pulse Resp B/P (MAP) Pulse Ox O2 Delivery O2 Flow Rate FiO2 10/28/19 09:00 54 98/43 10/28/19 09:00 54 98/43 10/28/19 08:33 Nasal Cannula 2.0 10/28/19 08:00 98.4 54 18 107/41 (63) 100 10/28/19 08:00 58 10/28/19 04:00 54 10/28/19 04:00 97.0 57 16 112/51 (71) 95 10/28/19 00:00 59 10/28/19 00:00 97.0 58 20 146/50 (82) 95 10/27/19 22:19 60 117/60 10/27/19 21:00 Nasal Cannula 2.0 10/27/19 20:00 56 10/27/19 20:00 97.0 59 18 117/57 (77) 95 10/27/19 16:00 55 10/27/19 16:00 97.2 54 20 121/52 (75) 97 Intake and Output 10/27/19 10/28/19 19:00 07:00 Intake Total 1150 ml Output Total 150 ml 200 ml Balance 1000 ml -200 ml Intake Oral 600 ml IV Total 550 ml Output Urine Total 150 ml 200 ml Laboratory Tests 10/27/19 17:00: Stool Occult Blood [Pending] 10/28/19 06:49: White Blood Count 4.0L, Red Blood Count 2.60L, Hemoglobin 8.0L, Hematocrit 26.0L , Mean Corpuscular Volume 100H, Mean Corpuscular Hemoglobin 30.8, Mean Corpuscular Hemoglobin Concent 30.8L, Red Cell Distribution Width 15.1H, Platelet Count 200, Mean Platelet Volume 7.3, Neutrophils (%) (Auto) 74.6, Lymphocytes (%) (Auto) 16.1L, Monocytes (%) (Auto) 6.0, Eosinophils (%) (Auto) 2.0, Basophils (%) (Auto) 1.3, Sodium Level 133L, Potassium Level 3.8, Chloride Level 100, Carbon Dioxide Level 26, Anion Gap 7, Blood Urea Nitrogen 71H, Creatinine 3.8H, Estimat Glomerular Filtration Rate 15.4, Glucose Level 165H, Calcium Level 8.5, Phosphorus Level 6.9H, Magnesium Level 2.0, Total Bilirubin 0.2, Aspartate Amino Transf (AST/SGOT) 45H, Alanine Aminotransferase (ALT/SGPT) 27, Alkaline Phosphatase 103, C-Reactive Protein, Quantitative 1.6H, Pro-B-Type Natriuretic Peptide 97312N, Total Protein 5.7L, Albumin 2.2L, Globulin 3.5, Albumin/Globulin Ratio 0.6L 10/28/19 11:23: POC Whole Blood Glucose [Pending] Height (Feet): 5 Height (Inches): 8.00 Weight (Pounds): 188 Objective GENERAL: Not in acute distress. PULMONARY: Decreased breath sounds. Some crackles noted Right side. CARDIOVASCULAR: Regular rate. No S3 or S4. ABDOMEN: Soft, nontender, nondistended. EXTREMITIES: 1+ edema. No cyanosis, swelling, or edema. 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 Melvin Rizzo MD Oct 28, 2019 12:32
--- NOTE | 2019-10-28 13:09 | Infectious Diseases Prog Note ---
Assessment/Plan 79yo M from SNF who p/w hypoglycemia and resp failure: Acute hypoxic respiratory failure, on BiPAP> now on 2l NC> RA > 2l NC Rapid COVID neg x2 (10/21, 10/24) Pneumonia on CXR Volume overload -10/25 CXR: Bilateral alveolar densities are unchanged -10/24 sp cx normal resp demario (prelim) -10/23 CXR: 1. Small layering right pleural effusion, not significantly changed. The previously noted small left pleural effusion is not as evident.Prominent lung markings and haziness, right greater left, which may be related to pulmonary vascular congestion versus pneumonitis. This is not significantly changed.. Subsegmental atelectasis versus infiltrate in the medial left lung base, also not significantly changed. 10/21 CXR: 1. Small bilateral pleural effusions. Bibasilar atelectasis versus pneumonia. 2. Prominent lung markings and hazy opacities in right greater than left lungs may represent artifact versus pulmonary vasculature congestion and edema versus infectious/inflammatory process. Afebrile No leukocytosis Anemia to 6.8, improved UA neg, UCx neg R/o bacteremia 10/21 BCx NTD ALEXIS on CKD, improving Plan: Cont CTX 2g IV daily #5/7 for pneumonia -10/26 SP vancomycin IV #5 COVID neg x2; F/u sp cx Trend resp status Monitor CBC, CMP D/w RN Thank you for this consult. [facility] will continue to follow. Subjective Allergies: Coded Allergies: PENICILLINS (Verified Allergy, Unknown, 10/25/19) tolerated Ceftriaxone afebrile at RA Objective Last 24 Hour Vital Signs Date Time Temp Pulse Resp B/P (MAP) Pulse Ox O2 Delivery O2 Flow Rate FiO2 10/28/19 12:00 96.5 53 20 114/40 (64) 100 10/28/19 12:00 54 10/28/19 09:00 54 98/43 10/28/19 09:00 54 98/43 10/28/19 08:33 Nasal Cannula 2.0 10/28/19 08:00 98.4 54 18 107/41 (63) 100 10/28/19 08:00 58 10/28/19 04:00 54 10/28/19 04:00 97.0 57 16 112/51 (71) 95 10/28/19 00:00 59 10/28/19 00:00 97.0 58 20 146/50 (82) 95 10/27/19 22:19 60 117/60 10/27/19 21:00 Nasal Cannula 2.0 10/27/19 20:00 56 10/27/19 20:00 97.0 59 18 117/57 (77) 95 10/27/19 16:00 55 10/27/19 16:00 97.2 54 20 121/52 (75) 97 Height (Feet): 5 Height (Inches): 8.00 Weight (Pounds): 188 Gen NAD Pulm: BL chest rise Abd: Obese, soft, NTND Ext: No c/c/e, 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 Laboratory Tests Test 10/27/19 17:00 10/28/19 06:49 10/28/19 11:23 Stool Occult Blood Positive (NEGATIVE) White Blood Count 4.0 K/UL (4.8-10.8) L Red Blood Count 2.60 M/UL (4.70-6.10) L Hemoglobin 8.0 G/DL (14.2-18.0) L Hematocrit 26.0 % (42.0-52.0) L Mean Corpuscular Volume 100 FL (80-99) H Mean Corpuscular Hemoglobin 30.8 PG (27.0-31.0) Mean Corpuscular Hemoglobin Concent 30.8 G/DL (32.0-36.0) L Red Cell Distribution Width 15.1 % (11.6-14.8) H Platelet Count 200 K/UL (150-450) Mean Platelet Volume 7.3 FL (6.5-10.1) Neutrophils (%) (Auto) 74.6 % (45.0-75.0) Lymphocytes (%) (Auto) 16.1 % (20.0-45.0) L Monocytes (%) (Auto) 6.0 % (1.0-10.0) Eosinophils (%) (Auto) 2.0 % (0.0-3.0) Basophils (%) (Auto) 1.3 % (0.0-2.0) Sodium Level 133 MMOL/L (136-145) L Potassium Level 3.8 MMOL/L (3.5-5.1) Chloride Level 100 MMOL/L (98-107) Carbon Dioxide Level 26 MMOL/L (21-32) Anion Gap 7 mmol/L (5-15) Blood Urea Nitrogen 71 mg/dL (7-18) H Creatinine 3.8 MG/DL (0.55-1.30) H Estimat Glomerular Filtration Rate 15.4 mL/min (>60) Glucose Level 165 MG/DL (74-106) H Calcium Level 8.5 MG/DL (8.5-10.1) Phosphorus Level 6.9 MG/DL (2.5-4.9) H Magnesium Level 2.0 MG/DL (1.8-2.4) Total Bilirubin 0.2 MG/DL (0.2-1.0) Aspartate Amino Transf (AST/SGOT) 45 U/L (15-37) H Alanine Aminotransferase (ALT/SGPT) 27 U/L (12-78) Alkaline Phosphatase 103 U/L (46-116) C-Reactive Protein, Quantitative 1.6 mg/dL (0.00-0.90) H Pro-B-Type Natriuretic Peptide 42585 pg/mL (0-125) H Total Protein 5.7 G/DL (6.4-8.2) L Albumin 2.2 G/DL (3.4-5.0) L Globulin 3.5 g/dL Albumin/Globulin Ratio 0.6 (1.0-2.7) L POC Whole Blood Glucose Pending Current Medications Medications (Trade) Dose Ordered Sig/Cammy Route PRN Reason Start Time Stop Time Status Last Admin Dose Admin Acetaminophen (Tylenol) 650 mg Q6H PRN ORAL Pain Scale (3-5) 10/26/19 13:00 11/23/19 06:59 10/27/19 12:11 Amlodipine Besylate (Norvasc) 5 mg DAILY ORAL 10/29/19 09:00 11/25/19 08:59 Atorvastatin Calcium (Lipitor) 10 mg BEDTIME ORAL 10/26/19 21:00 01/21/20 20:59 10/27/19 22:20 Ceftriaxone Sodium 2 gm/ Dextrose 55 ml @ 110 mls/hr Q24H IVPB 10/27/19 12:00 10/31/19 11:59 10/28/19 11:25 Dextrose (Dextrose 50%) 25 ml Q30M PRN IV Hypoglycemia 10/26/19 13:15 01/20/20 21:44 Dextrose (Dextrose 50%) 50 ml Q30M PRN IV Hypoglycemia 10/26/19 13:15 01/20/20 21:44 Docusate Sodium (Colace) 100 mg TID ORAL 10/26/19 18:00 11/22/19 17:59 10/28/19 12:44 Epoetin William (Epoetin William-EPBX(NON ESRD)) 10,000 unit SUBQ 10/27/19 21:00 01/25/20 20:59 10/27/19 22:20 Gabapentin (Neurontin) 100 mg THREE TIMES A DAY ORAL 10/26/19 18:00 11/22/19 17:59 10/28/19 12:44 Haloperidol (Haldol) 5 mg Q12H PRN ORAL Agitation 10/26/19 12:57 12/10/19 12:56 10/27/19 22:20 Haloperidol Lactate (Haldol) 5 mg Q6H PRN IM Agitation 10/26/19 12:57 12/10/19 12:56 Hydralazine HCl (Apresoline) 10 mg Q4H PRN IV For High Blood Pressure 10/26/19 13:07 01/24/20 13:06 10/26/19 17:49 Levothyroxine Sodium (Synthroid) 50 mcg DAILY IV 10/27/19 09:00 11/23/19 13:59 10/28/19 09:07 Pantoprazole (Protonix) 40 mg EVERY 12 HOURS IVP 10/26/19 21:00 11/22/19 08:59 10/28/19 08:55 Rivaroxaban (Xarelto) 15 mg QPM ORAL 10/27/19 16:30 01/25/20 16:29 10/27/19 16:21 Sennosides (Senokot) 8.6 mg HSPRN PRN ORAL Constipation 10/26/19 12:58 11/25/19 12:57 10/27/19 16:20 Sevelamer Carbonate (Renvela) 1,600 mg THREE TIMES A DAY ORAL 10/26/19 18:00 01/21/20 17:59 10/28/19 12:44 Sodium Bicarbonate 50 ml/ Dextrose 1,050 ml @ 50 mls/hr Q21H IV 10/27/19 05:00 11/26/19 04:59 10/27/19 05:06 Vitamin B Complex/ Vit C/Folic Acid (Nephrovite) 1 tab DAILY ORAL 10/27/19 09:00 11/22/19 08:59 10/28/19 08:55 Trinity Pan M.D. Oct 28, 2019 13:09
--- NOTE | 2019-10-28 14:00 | Surgery Progress Note ---
Surgery Progress Note Subjective Additional Comments pulled out reyes bleeding noted now stopped new reyes placed urine clearing up. Objective Last 24 Hour Vital Signs Date Time Temp Pulse Resp B/P (MAP) Pulse Ox O2 Delivery O2 Flow Rate FiO2 10/28/19 12:00 96.5 53 20 114/40 (64) 100 10/28/19 12:00 54 10/28/19 09:00 54 98/43 10/28/19 09:00 54 98/43 10/28/19 08:33 Nasal Cannula 2.0 10/28/19 08:00 98.4 54 18 107/41 (63) 100 10/28/19 08:00 58 10/28/19 04:00 54 10/28/19 04:00 97.0 57 16 112/51 (71) 95 10/28/19 00:00 59 10/28/19 00:00 97.0 58 20 146/50 (82) 95 10/27/19 22:19 60 117/60 10/27/19 21:00 Nasal Cannula 2.0 10/27/19 20:00 56 10/27/19 20:00 97.0 59 18 117/57 (77) 95 10/27/19 16:00 55 10/27/19 16:00 97.2 54 20 121/52 (75) 97 I&O Intake and Output 10/27/19 10/28/19 19:00 07:00 Intake Total 1150 ml Output Total 150 ml 200 ml Balance 1000 ml -200 ml Intake Oral 600 ml IV Total 550 ml Output Urine Total 150 ml 200 ml Dressing: saturated Cardiovascular: RSR Respiratory: decreased breath sounds Abdomen: soft, non-tender, present bowel sounds Extremities: edema, no tenderness, no cyanosis Laboratory Tests Test 10/27/19 17:00 10/28/19 06:49 10/28/19 11:23 Stool Occult Blood Positive (NEGATIVE) White Blood Count 4.0 K/UL (4.8-10.8) L Red Blood Count 2.60 M/UL (4.70-6.10) L Hemoglobin 8.0 G/DL (14.2-18.0) L Hematocrit 26.0 % (42.0-52.0) L Mean Corpuscular Volume 100 FL (80-99) H Mean Corpuscular Hemoglobin 30.8 PG (27.0-31.0) Mean Corpuscular Hemoglobin Concent 30.8 G/DL (32.0-36.0) L Red Cell Distribution Width 15.1 % (11.6-14.8) H Platelet Count 200 K/UL (150-450) Mean Platelet Volume 7.3 FL (6.5-10.1) Neutrophils (%) (Auto) 74.6 % (45.0-75.0) Lymphocytes (%) (Auto) 16.1 % (20.0-45.0) L Monocytes (%) (Auto) 6.0 % (1.0-10.0) Eosinophils (%) (Auto) 2.0 % (0.0-3.0) Basophils (%) (Auto) 1.3 % (0.0-2.0) Sodium Level 133 MMOL/L (136-145) L Potassium Level 3.8 MMOL/L (3.5-5.1) Chloride Level 100 MMOL/L (98-107) Carbon Dioxide Level 26 MMOL/L (21-32) Anion Gap 7 mmol/L (5-15) Blood Urea Nitrogen 71 mg/dL (7-18) H Creatinine 3.8 MG/DL (0.55-1.30) H Estimat Glomerular Filtration Rate 15.4 mL/min (>60) Glucose Level 165 MG/DL (74-106) H Calcium Level 8.5 MG/DL (8.5-10.1) Phosphorus Level 6.9 MG/DL (2.5-4.9) H Magnesium Level 2.0 MG/DL (1.8-2.4) Total Bilirubin 0.2 MG/DL (0.2-1.0) Aspartate Amino Transf (AST/SGOT) 45 U/L (15-37) H Alanine Aminotransferase (ALT/SGPT) 27 U/L (12-78) Alkaline Phosphatase 103 U/L (46-116) C-Reactive Protein, Quantitative 1.6 mg/dL (0.00-0.90) H Pro-B-Type Natriuretic Peptide 90239 pg/mL (0-125) H Total Protein 5.7 G/DL (6.4-8.2) L Albumin 2.2 G/DL (3.4-5.0) L Globulin 3.5 g/dL Albumin/Globulin Ratio 0.6 (1.0-2.7) L POC Whole Blood Glucose Pending Plan Problems: (1) Hypercarbia (2) Pleural effusion (3) Chronic renal failure (4) Anemia (5) CHF (congestive heart failure) (6) Bacteremia (7) Cellulitis (8) Hypoglycemia (9) Hyponatremia (10) ATN (acute tubular necrosis) (11) Metabolic acidosis (12) Pneumonia (13) Cellulitis of foot Assessment & Plan: Pt presented on admission with Bilat TMA. Pressure injuries both heels. Stable dry necrosis note to Plantar /lateral L TMA. L Heel is boggy with non- Blanchable erythema. . R Heel Boggy with Non-Blanchable erythema.Haemosiderin with Xerosis skin noted to R and L lower ext. Darker skin tone without erythema , induration or fluctuance Medial L Malleolus. Darker skin tone without erythema or induration noted to sacrum. Tx.Plan: Apply Moisture Barrier Paste to Sacrum. Cover with Optifoam drsg.Change every 3 days and prn. Apply Betadine to eschar plantar/lateral L TMA . Cover with Optifoam drsg. Change every 3 days and prn. Apply Cavilon Skin Barrier to both heels and Malleoli. Cover each site with Optifoam drsg. Change every 7days and prn. Reposition at least every 2hours or as tolerated. Off load heels with pillow.Hx prior amputation prior MRI and plain films reviewed wounds stable and local care being provided no abscess noted cont with dressings elevate heels with pillow turn q2h off load pressure air mattress will follow with recs thank you (14) Osteomyelitis (15) History of hypertension (16) Renal failure (ARF), acute on chronic (17) Acute encephalopathy (18) Diabetes mellitus (19) Hypertension (20) Cholelithiasis Assessment & Plan: US reviewed exam benign asymptomatic cholelithiasis alk phos mild elevated lfts improved trend labs no acute surgical intervention planned Liver: Liver measures 14.8 cm. No intrahepatic bile duct dilation. Gallbladder: Small stone in the gallbladder. No significant gallbladder wall thickening or pericholecystic fluid. Negative sonographic Bianchi's sign. Common bile duct: Normal common bile duct measuring 4.5 mm. No stones. No dilation. Pancreas: Pancreas is not visualized due to overlying bowel gas. Kidneys: Right kidney measures 9.1 cm in length. No hydronephrosis or stone. Left kidney not visualized due to patient's body habitus. Spleen: Spleen measures 9.4 cm. No focal lesion. Aorta: Visualized portions of the aorta are grossly unremarkable. The mid and distal portions are obscured by bowel gas. Inferior vena cava: Unremarkable. Free fluid: No ascites. Tubes, lines and devices: Reyes catheter in a decompressed bladder. IMPRESSION: Small stone in the gallbladder. No significant gallbladder wall thickening or pericholecystic fluid. Negative sonographic Bianchi's sign. Mariusz Diehl Oct 28, 2019 14:00
[2019-10-28] MEDS: Xarelto 15mg tab ORAL SCH (16:49)
--- NOTE | 2019-10-28 23:21 | Psych Consult Progress Note ---
Psychiatry Progress Note Psychiatry Progress Note Subjective pt's mental condition is the same the pt is still have episodes o agitations benefits from restraints. sleep and appetite adequate Medications Current Medications Medications (Trade) Dose Ordered Sig/Cammy Route PRN Reason Start Time Stop Time Status Last Admin Dose Admin Acetaminophen (Tylenol) 650 mg Q6H PRN ORAL Pain Scale (3-5) 10/26/19 13:00 11/23/19 06:59 10/27/19 12:11 Amlodipine Besylate (Norvasc) 5 mg DAILY ORAL 10/29/19 09:00 11/25/19 08:59 Atorvastatin Calcium (Lipitor) 10 mg BEDTIME ORAL 10/26/19 21:00 01/21/20 20:59 10/28/19 21:07 Ceftriaxone Sodium 2 gm/ Dextrose 55 ml @ 110 mls/hr Q24H IVPB 10/27/19 12:00 10/31/19 11:59 10/28/19 11:25 Dextrose (Dextrose 50%) 25 ml Q30M PRN IV Hypoglycemia 10/26/19 13:15 01/20/20 21:44 Dextrose (Dextrose 50%) 50 ml Q30M PRN IV Hypoglycemia 10/26/19 13:15 01/20/20 21:44 Docusate Sodium (Colace) 100 mg TID ORAL 10/26/19 18:00 11/22/19 17:59 10/28/19 17:58 Epoetin William (Epoetin William-EPBX(NON ESRD)) 10,000 unit FRI-FRI-FRI SUBQ 10/27/19 21:00 01/25/20 20:59 10/27/19 22:20 Gabapentin (Neurontin) 100 mg THREE TIMES A DAY ORAL 10/26/19 18:00 11/22/19 17:59 10/28/19 17:58 Haloperidol (Haldol) 5 mg Q12H PRN ORAL Agitation 10/26/19 12:57 12/10/19 12:56 10/27/19 22:20 Haloperidol Lactate (Haldol) 5 mg Q6H PRN IM Agitation 10/26/19 12:57 12/10/19 12:56 10/28/19 21:06 Hydralazine HCl (Apresoline) 10 mg Q4H PRN IV For High Blood Pressure 10/26/19 13:07 01/24/20 13:06 10/26/19 17:49 Levothyroxine Sodium (Synthroid) 50 mcg DAILY IV 10/27/19 09:00 11/23/19 13:59 10/28/19 09:07 Pantoprazole (Protonix) 40 mg EVERY 12 HOURS IVP 10/26/19 21:00 11/22/19 08:59 10/28/19 21:07 Rivaroxaban (Xarelto) 15 mg QPM ORAL 10/27/19 16:30 01/25/20 16:29 10/28/19 16:49 Sennosides (Senokot) 8.6 mg HSPRN PRN ORAL Constipation 10/26/19 12:58 11/25/19 12:57 10/27/19 16:20 Sevelamer Carbonate (Renvela) 1,600 mg THREE TIMES A DAY ORAL 10/26/19 18:00 01/21/20 17:59 10/28/19 17:58 Sodium Bicarbonate 50 ml/ Dextrose 1,050 ml @ 50 mls/hr Q21H IV 10/27/19 05:00 11/26/19 04:59 10/27/19 05:06 Vitamin B Complex/ Vit C/Folic Acid (Nephrovite) 1 tab DAILY ORAL 10/27/19 09:00 11/22/19 08:59 10/28/19 08:55 Neurological/Psychiatric: Denies: no symptoms, anxiety, depressed, emotional problems, headache, numbness, paresthesia, pre-existing deficit, seizure, tingling, tremors, weakness, other Allergies: Coded Allergies: PENICILLINS (Verified Allergy, Unknown, 10/25/19) tolerated Ceftriaxone Objective Data Height (Feet): 5 Height (Inches): 8.00 Weight (Pounds): 188 General Appearance: WD/WN, no apparent distress, alert, confused, agitated Appearance: no abnormalities noted Behavior Mannerisms: good eye contact Mental Status Exam - Affect: blunted Mental Status Exam - Mood: anxious, agitated Mental Status Exam - Thought P: tangential, confusion Mental Status Exam - Thought C: delusions (specify) Mental Status Exam - Suicidal: not present Assessment/Plan [facility]as[place] I: ASSESSMENT: 1. Dementia with behavior disturbance. 2. Acute encephalopathy. Assessment/Plan: ASSESSMENT: 1. Dementia with behavior disturbance. 2. Acute encephalopathy. PLAN: 1. We will continue the Haldol IM 2. Discussed with the nurse. Dada Finch MD Oct 28, 2019 23:21
[2019-10-29] VITALS: BP 135/78
[2019-10-29 04:00] VITALS: BP 119/50
[2019-10-29 07:09] LABS: BASOPHILS % (AUTO) 1.2 % (0.0-2.0); EOSINOPHILS % (AUTO) 0.8 % (0.0-3.0); HEMATOCRIT 25.9 % (42.0-52.0); HEMOGLOBIN 8.2 G/DL (14.2-18.0); LYMPHOCYTES % (AUTO) 12.9 % (20.0-45.0); MEAN CORPUSCULAR VOLUME 98 FL (80-99); MONOCYTES % (AUTO) 5.9 % (1.0-10.0); NEUTROPHILS % (AUTO) 79.3 % (45.0-75.0); PLATELET COUNT 212 K/UL (150-450); RED BLOOD COUNT 2.65 M/UL (4.70-6.10); RED CELL DISTRIBUTION WIDTH 14.7 % (11.6-14.8); WHITE BLOOD COUNT 5.5 K/UL (4.8-10.8)
[2019-10-29 07:49] LABS: PHOSPHORUS 7.2 MG/DL (2.5-4.9)
[2019-10-29 08:00] VITALS: BP 141/51
[2019-10-29] MEDS: Docusate 100mg cap ORAL SCH ×3 (08:50→17:10)
[2019-10-29] MEDS: Pantoprazole Inj IVP SCH ×2 (08:50→20:30)
[2019-10-29] MEDS: Nephrovite tab (Rena-Vite) ORAL SCH (08:50)
[2019-10-29 09:03] LABS: ANION GAP 8 mmol/L (5-15); BLOOD UREA NITROGEN 77 mg/dL (7-18); CALCIUM 8.9 MG/DL (8.5-10.1); CARBON DIOXIDE 26 MMOL/L (21-32); CHLORIDE 97 MMOL/L (98-107); CREATININE 4.2 MG/DL (0.55-1.30); SODIUM 131 MMOL/L (136-145)
[2019-10-29 09:08] LABS: ALANINE AMINOTRANSFERASE 28 U/L (12-78); ALBUMIN 2.3 G/DL (3.4-5.0); ALBUMIN/GLOBULIN RATIO 0.6 (1.0-2.7); ALKALINE PHOSPHATASE 114 U/L (46-116); ASPARTATE AMINO TRANSFERASE 59 U/L (15-37)
[2019-10-29 09:31] LABS: BILIRUBIN,TOTAL 0.2 MG/DL (0.2-1.0)
--- NOTE | 2019-10-29 09:31 | Nephrology Progress Note ---
Assessment/Plan Problem List: (1) Renal failure (ARF), acute on chronic (2) Metabolic acidosis (3) Electrolyte imbalance Assessment: Hyponatremia and hyperkalemia (4) Anemia (5) CHF (congestive heart failure) Assessment 79-year-old male is admitted for hypoglycemia Patient has renal failure which appears to be acute on chronic Hyperkalemia Hyponatremia CHF, pleural effusion, pneumonia Anemia Metabolic acidosis Hypothyroidism Plan October 28: Serum creatinine higher to 4.2 today. Blood pressure appears more stable. In view of worsening renal failure, will order stat kidney ultrasound and urine studies. Continue to monitor renal parameters. Patient is full code. Worsening renal parameters may lead to hemodialysis treatment. October 27: Patient pulled out the Lyles catheter. Serum creatinine went up to 3.8. Blood pressure somewhat low. Heart rate in 50s. Will discontinue Coreg. We will continue to monitor renal parameters. October 26: Serum creatinine lower again today. Will abort the dialysis plan. Continue per consultants. Continue to monitor renal parameters. Medication list reviewed. October 25: Clinically improving. Serum creatinine lower. Urine output increased. No dialysis planned at this time. Continue per consultants. October 24: Patient's respiratory status somewhat improved. Serum creatinine down to 3.9. Urinary output somewhat increased. Will hold placement of dialysis catheter at this time. Blood pressure medication adjusted. Continue to monitor renal parameters. Per orders. October 23: Patient remains on BiPAP. More Kayexalate ordered. Will consider hemodialysis to correct fluid overload and hyperkalemia and acidosis. Will discuss with PMD. Meanwhile IV Synthroid started. Discussed with RN Timothy Patient already transfused 1 unit for severe anemia previously Will initiate Epogen 10,000 units subcutaneously 1 dose of IV iron Venofer 200 g IV Kayexalate for hyperkalemia as needed 2D echocardiogram ordered, ejection fraction is reported normal Kidney ultrasound ordered: Kidneys: Right kidney measures 9.1 cm in length. No hydronephrosis or stone. Left kidney not visualized due to patient's body habitus. Avoid nephrotoxic's Monitor renal parameters Will hold insulin and hypoglycemic agents until hypoglycemia is reasonably resolved Subjective ROS Limited/Unobtainable: Yes Objective Objective Last 24 Hour Vital Signs Date Time Temp Pulse Resp B/P (MAP) Pulse Ox O2 Delivery O2 Flow Rate FiO2 10/29/19 08:51 61 141/51 10/29/19 08:03 Nasal Cannula 2.0 Nasal Cannula 2.0 10/29/19 04:00 97.7 81 19 119/50 (73) 100 10/29/19 04:00 59 10/29/19 00:00 56 10/29/19 00:00 98.0 94 21 135/78 (97) 94 10/28/19 21:00 Nasal Cannula 2.0 Nasal Cannula 2.0 10/28/19 20:01 98.3 100 22 131/84 (100) 100 10/28/19 20:00 60 10/28/19 16:00 56 10/28/19 16:00 97.0 54 18 128/50 (76) 100 10/28/19 12:00 96.5 53 20 114/40 (64) 100 10/28/19 12:00 54 Intake and Output 10/28/19 10/29/19 19:00 07:00 Intake Total 120 ml 50 ml Output Total 250 ml 200 ml Balance -130 ml -150 ml Intake Oral 120 ml 0 ml IV Total 50 ml Output Urine Total 250 ml 200 ml Laboratory Tests 10/28/19 11:23: POC Whole Blood Glucose [Pending] 10/28/19 22:49: POC Whole Blood Glucose [Pending] 10/29/19 06:40: White Blood Count 5.5, Red Blood Count 2.65L, Hemoglobin 8.2L, Hematocrit 25.9L , Mean Corpuscular Volume 98, Mean Corpuscular Hemoglobin 31.1H, Mean Corpuscular Hemoglobin Concent 31.8L, Red Cell Distribution Width 14.7, Platelet Count 212, Mean Platelet Volume 7.3, Neutrophils (%) (Auto) 79.3H, Lymphocytes (%) (Auto) 12.9L, Monocytes (%) (Auto) 5.9, Eosinophils (%) (Auto) 0.8, Basophils (%) (Auto) 1.2, Sodium Level 131L, Potassium Level 4.0, Chloride Level 97L, Carbon Dioxide Level 26, Anion Gap 8, Blood Urea Nitrogen 77H, Creatinine 4.2H, Estimat Glomerular Filtration Rate 13.7, Glucose Level 184H, Uric Acid 4.5, Calcium Level 8.9, Phosphorus Level 7.2H, Magnesium Level 2.2, Total Bilirubin [Pending], Aspartate Amino Transf (AST/SGOT) 59H, Alanine Aminotransferase (ALT/SGPT) 28, Alkaline Phosphatase 114, C-Reactive Protein, Quantitative 1.4H, Pro-B-Type Natriuretic Peptide 88021W, Total Protein 5.9L, Albumin 2.3L, Globulin 3.6, Albumin/Globulin Ratio 0.6L, Thyroid Stimulating Hormone (TSH) 3.997H Height (Feet): 5 Height (Inches): 8.00 Weight (Pounds): 189 General Appearance: lethargic, confused, mild distress Cardiovascular: normal rate Respiratory/Chest: decreased breath sounds Abdomen: distended Objective No change Naveed Vanegas MD Oct 29, 2019 09:31
--- NOTE | 2019-10-29 10:19 | Pulmonology Progress Note ---
Reema Hanna DESIGN LEAD 10/29/19 1019: Subjective ROS Limited/Unobtainable: No Allergies: Coded Allergies: PENICILLINS (Verified Allergy, Unknown, 10/25/19) tolerated Ceftriaxone Subjective intermittently on O2 via NC and RA denies CP, SOB, cough remans afebrile, no leukocytosis now on tele denies SOB, CP pulled out Lyles catheterb10/27, significant amount of bleeding noted, now cleared, Hgb at baseline Objective Last 24 Hour Vital Signs Date Time Temp Pulse Resp B/P (MAP) Pulse Ox O2 Delivery O2 Flow Rate FiO2 10/29/19 09:43 58 18 94 Nasal Cannula 2.0 28 10/29/19 09:42 94 Nasal Cannula 2.0 28 10/29/19 08:51 61 141/51 10/29/19 08:03 Nasal Cannula 2.0 Nasal Cannula 2.0 10/29/19 08:00 98.1 61 18 141/51 (81) 100 10/29/19 04:00 97.7 81 19 119/50 (73) 100 10/29/19 04:00 59 10/29/19 00:00 56 10/29/19 00:00 98.0 94 21 135/78 (97) 94 10/28/19 21:00 Nasal Cannula 2.0 Nasal Cannula 2.0 10/28/19 20:01 98.3 100 22 131/84 (100) 100 10/28/19 20:00 60 10/28/19 16:00 56 10/28/19 16:00 97.0 54 18 128/50 (76) 100 10/28/19 12:00 96.5 53 20 114/40 (64) 100 10/28/19 12:00 54 Intake and Output 10/28/19 10/29/19 19:00 07:00 Intake Total 120 ml 50 ml Output Total 250 ml 200 ml Balance -130 ml -150 ml Intake Oral 120 ml 0 ml IV Total 50 ml Output Urine Total 250 ml 200 ml Objective General Appearance: no apparent distress, Portuguese speaking confused male, Lines, tubes and drains: peripheral HEENT: normocephalic, atraumatic, anicteric, mucous membranes moist, O2 via NC Respiratory/Chest: BS clear Cardiovascular/Chest: normal rate, regular rhythm Abdomen: normal bowel sounds, non tender, soft : Lyles urine clearing Extremities: partially amputated BL foot Skin Exam: warm/dry Neurologic: abnormal gait, alert, oriented , confused Musculoskeletal: atrophy - BLE Laboratory Tests 10/28/19 11:23: POC Whole Blood Glucose [Pending] 10/28/19 22:49: POC Whole Blood Glucose [Pending] 10/29/19 06:40: White Blood Count 5.5, Red Blood Count 2.65L, Hemoglobin 8.2L, Hematocrit 25.9L , Mean Corpuscular Volume 98, Mean Corpuscular Hemoglobin 31.1H, Mean Corpuscular Hemoglobin Concent 31.8L, Red Cell Distribution Width 14.7, Platelet Count 212, Mean Platelet Volume 7.3, Neutrophils (%) (Auto) 79.3H, Lymphocytes (%) (Auto) 12.9L, Monocytes (%) (Auto) 5.9, Eosinophils (%) (Auto) 0.8, Basophils (%) (Auto) 1.2, Sodium Level 131L, Potassium Level 4.0, Chloride Level 97L, Carbon Dioxide Level 26, Anion Gap 8, Blood Urea Nitrogen 77H, Creatinine 4.2H, Estimat Glomerular Filtration Rate 13.7, Glucose Level 184H, Uric Acid 4.5, Calcium Level 8.9, Phosphorus Level 7.2H, Magnesium Level 2.2, Total Bilirubin 0.2, Aspartate Amino Transf (AST/SGOT) 59H, Alanine Aminotransferase (ALT/SGPT) 28, Alkaline Phosphatase 114, C-Reactive Protein, Quantitative 1.4H, Pro-B-Type Natriuretic Peptide 66819J, Total Protein 5.9L, Albumin 2.3L, Globulin 3.6, Albumin/Globulin Ratio 0.6L, Thyroid Stimulating Hormone (TSH) 3.997H Current Medications Medications (Trade) Dose Ordered Sig/Cammy Route PRN Reason Start Time Stop Time Status Last Admin Dose Admin Acetaminophen (Tylenol) 650 mg Q6H PRN ORAL Pain Scale (3-5) 10/26/19 13:00 11/23/19 06:59 10/27/19 12:11 Amlodipine Besylate (Norvasc) 5 mg DAILY ORAL 10/29/19 09:00 11/25/19 08:59 10/29/19 08:51 Atorvastatin Calcium (Lipitor) 10 mg BEDTIME ORAL 10/26/19 21:00 01/21/20 20:59 10/28/19 21:07 Ceftriaxone Sodium 2 gm/ Dextrose 55 ml @ 110 mls/hr Q24H IVPB 10/27/19 12:00 10/31/19 11:59 10/28/19 11:25 Dextrose (Dextrose 50%) 25 ml Q30M PRN IV Hypoglycemia 10/26/19 13:15 01/20/20 21:44 Dextrose (Dextrose 50%) 50 ml Q30M PRN IV Hypoglycemia 10/26/19 13:15 01/20/20 21:44 Docusate Sodium (Colace) 100 mg TID ORAL 10/26/19 18:00 11/22/19 17:59 10/29/19 08:50 Epoetin William (Epoetin William-EPBX(NON ESRD)) 10,000 unit SUBQ 10/27/19 21:00 01/25/20 20:59 10/27/19 22:20 Gabapentin (Neurontin) 100 mg THREE TIMES A DAY ORAL 10/26/19 18:00 11/22/19 17:59 10/29/19 08:50 Haloperidol (Haldol) 5 mg Q12H PRN ORAL Agitation 10/26/19 12:57 12/10/19 12:56 10/27/19 22:20 Haloperidol Lactate (Haldol) 5 mg Q6H PRN IM Agitation 10/26/19 12:57 12/10/19 12:56 10/28/19 21:06 Hydralazine HCl (Apresoline) 10 mg Q4H PRN IV For High Blood Pressure 10/26/19 13:07 01/24/20 13:06 10/26/19 17:49 Levothyroxine Sodium (Synthroid) 50 mcg DAILY IV 10/27/19 09:00 11/23/19 13:59 10/29/19 09:51 Pantoprazole (Protonix) 40 mg EVERY 12 HOURS IVP 10/26/19 21:00 11/22/19 08:59 10/29/19 08:50 Rivaroxaban (Xarelto) 15 mg QPM ORAL 10/27/19 16:30 01/25/20 16:29 10/28/19 16:49 Sennosides (Senokot) 8.6 mg HSPRN PRN ORAL Constipation 10/26/19 12:58 11/25/19 12:57 10/27/19 16:20 Sevelamer Carbonate (Renvela) 1,600 mg THREE TIMES A DAY ORAL 10/26/19 18:00 01/21/20 17:59 10/29/19 08:50 Sodium Bicarbonate 50 ml/ Dextrose 1,050 ml @ 50 mls/hr Q21H IV 10/27/19 05:00 11/26/19 04:59 10/28/19 23:59 Vitamin B Complex/ Vit C/Folic Acid (Nephrovite) 1 tab DAILY ORAL 10/27/19 09:00 11/22/19 08:59 10/29/19 08:50 Assessment/Plan Assessment/Plan ASSESSMENT Acute hypoxemic hypercapnic respiratory failure requiring BiPAP -resolved Acute metabolic encephalopathy likely due to hypoglycemia Diabetes mellitus with initial hypoglycemia Probably pneumonia Aspiration risk Acute kidney injury on chronic kidney disease Severe anemia requiring blood transfusion Metabolic acidosis Electrolyte imbalance :hyponatremia, hyperkalemia HTN with HTN urgency Dysphagia Hematuria 2 to pt pulled off his Lyles catheter PLAN OF CARE tele off BiPAP now on O2 via NC intermittently as well as RA hypercapnia resolved titrate FiO2 to keep sat > 90% pulm toilet 10/21 and 10/24 rapid COVID NGT, CXR 10/23 -> 1. Small layering right pleural effusion, not significantly changed. The previously noted small left pleural effusion is not as evident. 2. Prominent lung markings and haziness, right greater left, which may be related to pulmonary vascular congestion versus pneumonitis. This is not significantly changed. 3. Subsegmental atelectasis versus infiltrate in the medial left lung base, also not significantly changed. BiPAP prn empiric abx as per ID recs -> Ceftriaxone ; s/p Vanco BCX 10/21 NGTD UCX NGT SCX if able CXR 10/25 -> stable , no significant change from before [place] Duplex BLE 10/25 -> NGT fup with CXR resp status improved ECHO with pEF 55-60% on chronic a/c with Xarelto ?unclear reason monitor volumes swallow eval with aspiration risk diet texture as per ST recs with strict asp precautions and assistance with meals gentle IV dextrose with bicarb, monitor acid base status , HgA1c -6.1 hold oral anti-glycemic SSI prn ; recommend sensitive SSI AMS was most likely due to episode of hypoglycemia CT head NGT for acute ICP renal US avoid nephrotoxic s/p Kayexalate and sodium bicarb gentle IVF creat up to 3.8 today f/up with nephro recs BP management with CCB and Hydralazine prn for BP spikes monitor HH with goal to keep Hgb above 7 stool OB anemia w/up noted , heme on board s/p 1 dose of Venofer on EPO hematuria resolved, CBc as ordered yesterday stat not done this am Hgb at baseline GI prophayxlis supportive care thanks for a consult! case discussed and evaluated by supervising physician Jonathon Pabon MD 10/29/19 1249: Subjective Allergies: Coded Allergies: PENICILLINS (Verified Allergy, Unknown, 10/25/19) tolerated Ceftriaxone Assessment/Plan Assessment/Plan Patient seen and examined with DESIGN LEAD. Agree with above A&P as it reflects our joint deliberations. Stable on NC, kerri PO, AAOX1, NAEO o/w Reema Hanna DESIGN LEAD Oct 29, 2019 10:19 Jonathon Pabon MD Oct 29, 2019 12:49
--- NOTE | 2019-10-29 10:39 | General Progress Note ---
Assessment/Plan Problem List: (1) Hypertension ICD Codes: I10 - Essential (primary) hypertension SNOMED: 60722166 (2) Diabetes mellitus ICD Codes: E11.9 - Type 2 diabetes mellitus without complications SNOMED: 30550750 (3) Anemia ICD Codes: D64.9 - Anemia, unspecified SNOMED: 922136025 (4) Cholelithiasis ICD Codes: K80.20 - Calculus of gallbladder without cholecystitis without obstruction SNOMED: 481798907 (5) CHF (congestive heart failure) ICD Codes: I50.9 - Heart failure, unspecified SNOMED: 82297335 Assessment/Plan: patient on Xerallto stool ob positive but no overt GIB stable H&H fu cbc repeat stool ob ppi bid EGD and colonoscopy if needed Subjective ROS Limited/Unobtainable: No Allergies: Coded Allergies: PENICILLINS (Verified Allergy, Unknown, 10/25/19) tolerated Ceftriaxone Objective Last 24 Hour Vital Signs Date Time Temp Pulse Resp B/P (MAP) Pulse Ox O2 Delivery O2 Flow Rate FiO2 10/29/19 09:43 58 18 94 Nasal Cannula 2.0 28 10/29/19 09:42 94 Nasal Cannula 2.0 28 10/29/19 08:51 61 141/51 10/29/19 08:03 Nasal Cannula 2.0 Nasal Cannula 2.0 10/29/19 08:00 98.1 61 18 141/51 (81) 100 10/29/19 08:00 51 10/29/19 04:00 97.7 81 19 119/50 (73) 100 10/29/19 04:00 59 10/29/19 00:00 56 10/29/19 00:00 98.0 94 21 135/78 (97) 94 10/28/19 21:00 Nasal Cannula 2.0 Nasal Cannula 2.0 10/28/19 20:01 98.3 100 22 131/84 (100) 100 10/28/19 20:00 60 10/28/19 16:00 56 10/28/19 16:00 97.0 54 18 128/50 (76) 100 10/28/19 12:00 96.5 53 20 114/40 (64) 100 10/28/19 12:00 54 Intake and Output 10/28/19 10/29/19 19:00 07:00 Intake Total 120 ml 50 ml Output Total 250 ml 200 ml Balance -130 ml -150 ml Intake Oral 120 ml 0 ml IV Total 50 ml Output Urine Total 250 ml 200 ml Laboratory Tests 10/28/19 11:23: POC Whole Blood Glucose [Pending] 10/28/19 22:49: POC Whole Blood Glucose [Pending] 10/29/19 06:40: White Blood Count 5.5, Red Blood Count 2.65L, Hemoglobin 8.2L, Hematocrit 25.9L , Mean Corpuscular Volume 98, Mean Corpuscular Hemoglobin 31.1H, Mean Corpuscular Hemoglobin Concent 31.8L, Red Cell Distribution Width 14.7, Platelet Count 212, Mean Platelet Volume 7.3, Neutrophils (%) (Auto) 79.3H, Lymphocytes (%) (Auto) 12.9L, Monocytes (%) (Auto) 5.9, Eosinophils (%) (Auto) 0.8, Basophils (%) (Auto) 1.2, Sodium Level 131L, Potassium Level 4.0, Chloride Level 97L, Carbon Dioxide Level 26, Anion Gap 8, Blood Urea Nitrogen 77H, Creatinine 4.2H, Estimat Glomerular Filtration Rate 13.7, Glucose Level 184H, Uric Acid 4.5, Calcium Level 8.9, Phosphorus Level 7.2H, Magnesium Level 2.2, Total Bilirubin 0.2, Aspartate Amino Transf (AST/SGOT) 59H, Alanine Aminotransferase (ALT/SGPT) 28, Alkaline Phosphatase 114, C-Reactive Protein, Quantitative 1.4H, Pro-B-Type Natriuretic Peptide 30558D, Total Protein 5.9L, Albumin 2.3L, Globulin 3.6, Albumin/Globulin Ratio 0.6L, Thyroid Stimulating Hormone (TSH) 3.997H Height (Feet): 5 Height (Inches): 8.00 Weight (Pounds): 189 General Appearance: confused EENT: normal ENT inspection Neck: supple Cardiovascular: normal rate Respiratory/Chest: decreased breath sounds Abdomen: hypoactive bowel sounds Extremities: other - bilateral feet amputations Lawrence Humphreys MD Oct 29, 2019 10:39
[2019-10-29] MEDS: cefTRIAXone 2 GM in D5W 55 ML IVPB SCH (11:33)
--- NOTE | 2019-10-29 11:58 | General Progress Note ---
Assessment/Plan Assessment/Plan: Covering Dr. Chang ASSESSMENT AND RECOMMENDATIONS: # Anemia of chronic disease due to underlying chronic medical issues, multifactorial --> Anemia w/u has been reviewed. --> no evidence of hemolysis is noted, peripheral smear has been reviewed --> hgb goal is >7, transfuse as needed --> currently remains stable, occult blood negative --> hgb 8.4->8.6->8.3->8->8.2 --> some blood loss due to hematuria after inflated reyes pulled 10/27 am --> EPOGEN Started # Acute kidney injury r/o potential reversible component --> reviewed meds, those that are renally cleared removed --> as per renal recs, appreciated --> cr 3.5-->4.2 # Hypertension, essential --> sbp goal is <140, consider anti-htn as needed --> currently started on hyralazine 25mg po q6h prn sbp >140 # CHF - hx of CHf --> diuresis with lasix as needed --> cardiology recs appreciatedp rior adm #. Leukocytosis with underlying infectionv stress reaction HISTORY --> per id and better --> for infection, ABX ctx/vanc #. Bilateral lower extremity amputee, metatarsal several years ago #. Hyperkalemia -- kayxelate as needed #. Dvt ppx scds The time the note was entered does not necessarily correspond to the time the patient was seen. GREATLY APPRECIATE CONSULTATION. Subjective Allergies: Coded Allergies: PENICILLINS (Verified Allergy, Unknown, 10/25/19) tolerated Ceftriaxone Subjective 10/[address] Chang, to do best to avoid haldol, continue restraints, jag rn, on nc, feeling better 10/25 still with some agitation overnight, meds reviewed, jag rn, haldol given in AM 10/26 is on 2l nc, also is on restraints, no night sweats, no bleeding 10/27 reyes catheter has been removed by patient, and resinserted, bed sheets, with bright red blood on exam 10/28 labs are noted, no bleeding, cr is worse, seen by renal, remains edematous Objective Last 24 Hour Vital Signs Date Time Temp Pulse Resp B/P (MAP) Pulse Ox O2 Delivery O2 Flow Rate FiO2 10/29/19 09:43 58 18 94 Nasal Cannula 2.0 28 10/29/19 09:42 94 Nasal Cannula 2.0 28 10/29/19 08:51 61 141/51 10/29/19 08:03 Nasal Cannula 2.0 Nasal Cannula 2.0 10/29/19 08:00 98.1 61 18 141/51 (81) 100 10/29/19 08:00 51 10/29/19 04:00 97.7 81 19 119/50 (73) 100 10/29/19 04:00 59 10/29/19 00:00 56 10/29/19 00:00 98.0 94 21 135/78 (97) 94 10/28/19 21:00 Nasal Cannula 2.0 Nasal Cannula 2.0 10/28/19 20:01 98.3 100 22 131/84 (100) 100 10/28/19 20:00 60 10/28/19 16:00 56 10/28/19 16:00 97.0 54 18 128/50 (76) 100 10/28/19 12:00 96.5 53 20 114/40 (64) 100 10/28/19 12:00 54 Intake and Output 10/28/19 10/29/19 19:00 07:00 Intake Total 120 ml 50 ml Output Total 250 ml 200 ml Balance -130 ml -150 ml Intake Oral 120 ml 0 ml IV Total 50 ml Output Urine Total 250 ml 200 ml Laboratory Tests 10/28/19 22:49: POC Whole Blood Glucose [Pending] 10/29/19 06:40: White Blood Count 5.5, Red Blood Count 2.65L, Hemoglobin 8.2L, Hematocrit 25.9L , Mean Corpuscular Volume 98, Mean Corpuscular Hemoglobin 31.1H, Mean Corpuscular Hemoglobin Concent 31.8L, Red Cell Distribution Width 14.7, Platelet Count 212, Mean Platelet Volume 7.3, Neutrophils (%) (Auto) 79.3H, Lymphocytes (%) (Auto) 12.9L, Monocytes (%) (Auto) 5.9, Eosinophils (%) (Auto) 0.8, Basophils (%) (Auto) 1.2, Sodium Level 131L, Potassium Level 4.0, Chloride Level 97L, Carbon Dioxide Level 26, Anion Gap 8, Blood Urea Nitrogen 77H, Creatinine 4.2H, Estimat Glomerular Filtration Rate 13.7, Glucose Level 184H, Uric Acid 4.5, Calcium Level 8.9, Phosphorus Level 7.2H, Magnesium Level 2.2, Total Bilirubin 0.2, Aspartate Amino Transf (AST/SGOT) 59H, Alanine Aminotransferase (ALT/SGPT) 28, Alkaline Phosphatase 114, C-Reactive Protein, Quantitative 1.4H, Pro-B-Type Natriuretic Peptide 91170C, Total Protein 5.9L, Albumin 2.3L, Globulin 3.6, Albumin/Globulin Ratio 0.6L, Thyroid Stimulating Hormone (TSH) 3.997H 10/29/19 11:34: POC Whole Blood Glucose 170H Height (Feet): 5 Height (Inches): 8.00 Weight (Pounds): 189 Objective GENERAL: Not in acute distress. PULMONARY: Decreased breath sounds. Some crackles noted Right side. CARDIOVASCULAR: Regular rate. No S3 or S4. ABDOMEN: Soft, nontender, nondistended. EXTREMITIES: 1+ edema. No cyanosis, swelling, or edema. 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 Melvin Rizzo MD Oct 29, 2019 11:58
[2019-10-29 12:00] VITALS: BP 132/40
--- NOTE | 2019-10-29 12:31 | Surgery Progress Note ---
Surgery Progress Note Subjective Additional Comments no acute events urine clearing up no bleeding no n/v/f/c labs improved Objective Last 24 Hour Vital Signs Date Time Temp Pulse Resp B/P (MAP) Pulse Ox O2 Delivery O2 Flow Rate FiO2 10/29/19 09:43 58 18 94 Nasal Cannula 2.0 28 10/29/19 09:42 94 Nasal Cannula 2.0 28 10/29/19 08:51 61 141/51 10/29/19 08:03 Nasal Cannula 2.0 Nasal Cannula 2.0 10/29/19 08:00 98.1 61 18 141/51 (81) 100 10/29/19 08:00 51 10/29/19 04:00 97.7 81 19 119/50 (73) 100 10/29/19 04:00 59 10/29/19 00:00 56 10/29/19 00:00 98.0 94 21 135/78 (97) 94 10/28/19 21:00 Nasal Cannula 2.0 Nasal Cannula 2.0 10/28/19 20:01 98.3 100 22 131/84 (100) 100 10/28/19 20:00 60 10/28/19 16:00 56 10/28/19 16:00 97.0 54 18 128/50 (76) 100 I&O Intake and Output 10/28/19 10/29/19 19:00 07:00 Intake Total 120 ml 50 ml Output Total 250 ml 200 ml Balance -130 ml -150 ml Intake Oral 120 ml 0 ml IV Total 50 ml Output Urine Total 250 ml 200 ml Dressing: dry Wound: clean Cardiovascular: RSR Respiratory: clear, decreased breath sounds Abdomen: soft, non-tender, present bowel sounds Extremities: no edema, no tenderness, no cyanosis Laboratory Tests Test 10/28/19 22:49 10/29/19 06:40 10/29/19 11:34 POC Whole Blood Glucose Pending 170 MG/DL (74-106) H White Blood Count 5.5 K/UL (4.8-10.8) Red Blood Count 2.65 M/UL (4.70-6.10) L Hemoglobin 8.2 G/DL (14.2-18.0) L Hematocrit 25.9 % (42.0-52.0) L Mean Corpuscular Volume 98 FL (80-99) Mean Corpuscular Hemoglobin 31.1 PG (27.0-31.0) H Mean Corpuscular Hemoglobin Concent 31.8 G/DL (32.0-36.0) L Red Cell Distribution Width 14.7 % (11.6-14.8) Platelet Count 212 K/UL (150-450) Mean Platelet Volume 7.3 FL (6.5-10.1) Neutrophils (%) (Auto) 79.3 % (45.0-75.0) H Lymphocytes (%) (Auto) 12.9 % (20.0-45.0) L Monocytes (%) (Auto) 5.9 % (1.0-10.0) Eosinophils (%) (Auto) 0.8 % (0.0-3.0) Basophils (%) (Auto) 1.2 % (0.0-2.0) Sodium Level 131 MMOL/L (136-145) L Potassium Level 4.0 MMOL/L (3.5-5.1) Chloride Level 97 MMOL/L (98-107) L Carbon Dioxide Level 26 MMOL/L (21-32) Anion Gap 8 mmol/L (5-15) Blood Urea Nitrogen 77 mg/dL (7-18) H Creatinine 4.2 MG/DL (0.55-1.30) H Estimat Glomerular Filtration Rate 13.7 mL/min (>60) Glucose Level 184 MG/DL (74-106) H Uric Acid 4.5 MG/DL (2.6-7.2) Calcium Level 8.9 MG/DL (8.5-10.1) Phosphorus Level 7.2 MG/DL (2.5-4.9) H Magnesium Level 2.2 MG/DL (1.8-2.4) Total Bilirubin 0.2 MG/DL (0.2-1.0) Aspartate Amino Transf (AST/SGOT) 59 U/L (15-37) H Alanine Aminotransferase (ALT/SGPT) 28 U/L (12-78) Alkaline Phosphatase 114 U/L (46-116) C-Reactive Protein, Quantitative 1.4 mg/dL (0.00-0.90) H Pro-B-Type Natriuretic Peptide 27476 pg/mL (0-125) H Total Protein 5.9 G/DL (6.4-8.2) L Albumin 2.3 G/DL (3.4-5.0) L Globulin 3.6 g/dL Albumin/Globulin Ratio 0.6 (1.0-2.7) L Thyroid Stimulating Hormone (TSH) 3.997 uiU/mL (0.358-3.740) Plan Problems: (1) Hypercarbia (2) Pleural effusion (3) Chronic renal failure (4) Anemia (5) CHF (congestive heart failure) (6) Bacteremia (7) Cellulitis Assessment & Plan: penile swelling improved no active bleeding reyes okazra will monitor (8) Hypoglycemia (9) Hyponatremia (10) ATN (acute tubular necrosis) (11) Metabolic acidosis (12) Pneumonia (13) Cellulitis of foot Assessment & Plan: Pt presented on admission with Bilat TMA. Pressure injuries both heels. Stable dry necrosis note to Plantar /lateral L TMA. L Heel is boggy with non- Blanchable erythema. . R Heel Boggy with Non-Blanchable erythema.Haemosiderin with Xerosis skin noted to R and L lower ext. Darker skin tone without erythema , induration or fluctuance Medial L Malleolus. Darker skin tone without erythema or induration noted to sacrum. Tx.Plan: Apply Moisture Barrier Paste to Sacrum. Cover with Optifoam drsg.Change every 3 days and prn. Apply Betadine to eschar plantar/lateral L TMA . Cover with Optifoam drsg. Change every 3 days and prn. Apply Cavilon Skin Barrier to both heels and Malleoli. Cover each site with Optifoam drsg. Change every 7days and prn. Reposition at least every 2hours or as tolerated. Off load heels with pillow.Hx prior amputation prior MRI and plain films reviewed wounds stable and local care being provided no abscess noted cont with dressings elevate heels with pillow turn q2h off load pressure air mattress will follow with recs thank you (14) Osteomyelitis (15) History of hypertension (16) Renal failure (ARF), acute on chronic (17) Acute encephalopathy (18) Diabetes mellitus (19) Hypertension (20) Cholelithiasis Assessment & Plan: US reviewed exam benign asymptomatic cholelithiasis alk phos mild elevated lfts improved trend labs no acute surgical intervention planned Liver: Liver measures 14.8 cm. No intrahepatic bile duct dilation. Gallbladder: Small stone in the gallbladder. No significant gallbladder wall thickening or pericholecystic fluid. Negative sonographic Bianchi's sign. Common bile duct: Normal common bile duct measuring 4.5 mm. No stones. No dilation. Pancreas: Pancreas is not visualized due to overlying bowel gas. Kidneys: Right kidney measures 9.1 cm in length. No hydronephrosis or stone. Left kidney not visualized due to patient's body habitus. Spleen: Spleen measures 9.4 cm. No focal lesion. Aorta: Visualized portions of the aorta are grossly unremarkable. The mid and distal portions are obscured by bowel gas. Inferior vena cava: Unremarkable. Free fluid: No ascites. Tubes, lines and devices: Reyes catheter in a decompressed bladder. IMPRESSION: Small stone in the gallbladder. No significant gallbladder wall thickening or pericholecystic fluid. Negative sonographic Bianchi's sign. Mariusz Diehl Oct 29, 2019 12:31
--- NOTE | 2019-10-29 12:52 | Infectious Diseases Prog Note ---
Assessment/Plan 79yo M from SNF who p/w hypoglycemia and resp failure: Acute hypoxic respiratory failure, on BiPAP> now on 2l NC> RA > 2l NC Rapid COVID neg x2 (10/21, 10/24) Pneumonia on CXR Volume overload -10/25 CXR: Bilateral alveolar densities are unchanged -10/24 sp cx normal resp demario (prelim) -10/23 CXR: 1. Small layering right pleural effusion, not significantly changed. The previously noted small left pleural effusion is not as evident.Prominent lung markings and haziness, right greater left, which may be related to pulmonary vascular congestion versus pneumonitis. This is not significantly changed.. Subsegmental atelectasis versus infiltrate in the medial left lung base, also not significantly changed. 10/21 CXR: 1. Small bilateral pleural effusions. Bibasilar atelectasis versus pneumonia. 2. Prominent lung markings and hazy opacities in right greater than left lungs may represent artifact versus pulmonary vasculature congestion and edema versus infectious/inflammatory process. Afebrile No leukocytosis Anemia to 6.8, improved UA neg, UCx neg R/o bacteremia 10/21 BCx NTD ALEXIS on CKD, worsening Plan: Cont CTX 2g IV daily #6/7 for pneumonia -10/26 SP vancomycin IV #5 COVID neg x2; F/u sp cx Trend resp status Monitor CBC, CMP D/w RN Thank you for this consult. [facility] will continue to follow. Subjective Allergies: Coded Allergies: PENICILLINS (Verified Allergy, Unknown, 10/25/19) tolerated Ceftriaxone afebrile at 2L NC cr increased Objective Last 24 Hour Vital Signs Date Time Temp Pulse Resp B/P (MAP) Pulse Ox O2 Delivery O2 Flow Rate FiO2 10/29/19 09:43 58 18 94 Nasal Cannula 2.0 28 10/29/19 09:42 94 Nasal Cannula 2.0 28 10/29/19 08:51 61 141/51 10/29/19 08:03 Nasal Cannula 2.0 Nasal Cannula 2.0 10/29/19 08:00 98.1 61 18 141/51 (81) 100 10/29/19 08:00 51 10/29/19 04:00 97.7 81 19 119/50 (73) 100 10/29/19 04:00 59 10/29/19 00:00 56 10/29/19 00:00 98.0 94 21 135/78 (97) 94 10/28/19 21:00 Nasal Cannula 2.0 Nasal Cannula 2.0 10/28/19 20:01 98.3 100 22 131/84 (100) 100 10/28/19 20:00 60 10/28/19 16:00 56 10/28/19 16:00 97.0 54 18 128/50 (76) 100 Height (Feet): 5 Height (Inches): 8.00 Weight (Pounds): 189 Gen NAD Pulm: BL chest rise Abd: Obese, soft, NTND Ext: No c/c/e, 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 Laboratory Tests Test 10/28/19 22:49 10/29/19 06:40 10/29/19 11:34 POC Whole Blood Glucose Pending 170 MG/DL (74-106) H White Blood Count 5.5 K/UL (4.8-10.8) Red Blood Count 2.65 M/UL (4.70-6.10) L Hemoglobin 8.2 G/DL (14.2-18.0) L Hematocrit 25.9 % (42.0-52.0) L Mean Corpuscular Volume 98 FL (80-99) Mean Corpuscular Hemoglobin 31.1 PG (27.0-31.0) H Mean Corpuscular Hemoglobin Concent 31.8 G/DL (32.0-36.0) L Red Cell Distribution Width 14.7 % (11.6-14.8) Platelet Count 212 K/UL (150-450) Mean Platelet Volume 7.3 FL (6.5-10.1) Neutrophils (%) (Auto) 79.3 % (45.0-75.0) H Lymphocytes (%) (Auto) 12.9 % (20.0-45.0) L Monocytes (%) (Auto) 5.9 % (1.0-10.0) Eosinophils (%) (Auto) 0.8 % (0.0-3.0) Basophils (%) (Auto) 1.2 % (0.0-2.0) Sodium Level 131 MMOL/L (136-145) L Potassium Level 4.0 MMOL/L (3.5-5.1) Chloride Level 97 MMOL/L (98-107) L Carbon Dioxide Level 26 MMOL/L (21-32) Anion Gap 8 mmol/L (5-15) Blood Urea Nitrogen 77 mg/dL (7-18) H Creatinine 4.2 MG/DL (0.55-1.30) H Estimat Glomerular Filtration Rate 13.7 mL/min (>60) Glucose Level 184 MG/DL (74-106) H Uric Acid 4.5 MG/DL (2.6-7.2) Calcium Level 8.9 MG/DL (8.5-10.1) Phosphorus Level 7.2 MG/DL (2.5-4.9) H Magnesium Level 2.2 MG/DL (1.8-2.4) Total Bilirubin 0.2 MG/DL (0.2-1.0) Aspartate Amino Transf (AST/SGOT) 59 U/L (15-37) H Alanine Aminotransferase (ALT/SGPT) 28 U/L (12-78) Alkaline Phosphatase 114 U/L (46-116) C-Reactive Protein, Quantitative 1.4 mg/dL (0.00-0.90) H Pro-B-Type Natriuretic Peptide 92650 pg/mL (0-125) H Total Protein 5.9 G/DL (6.4-8.2) L Albumin 2.3 G/DL (3.4-5.0) L Globulin 3.6 g/dL Albumin/Globulin Ratio 0.6 (1.0-2.7) L Thyroid Stimulating Hormone (TSH) 3.997 uiU/mL (0.358-3.740) Current Medications Medications (Trade) Dose Ordered Sig/Cammy Route PRN Reason Start Time Stop Time Status Last Admin Dose Admin Acetaminophen (Tylenol) 650 mg Q6H PRN ORAL Pain Scale (3-5) 10/26/19 13:00 11/23/19 06:59 10/27/19 12:11 Amlodipine Besylate (Norvasc) 5 mg DAILY ORAL 10/29/19 09:00 11/25/19 08:59 10/29/19 08:51 Atorvastatin Calcium (Lipitor) 10 mg BEDTIME ORAL 10/26/19 21:00 01/21/20 20:59 10/28/19 21:07 Ceftriaxone Sodium 2 gm/ Dextrose 55 ml @ 110 mls/hr Q24H IVPB 10/27/19 12:00 10/31/19 11:59 10/29/19 11:33 Dextrose (Dextrose 50%) 25 ml Q30M PRN IV Hypoglycemia 10/26/19 13:15 01/20/20 21:44 Dextrose (Dextrose 50%) 50 ml Q30M PRN IV Hypoglycemia 10/26/19 13:15 01/20/20 21:44 Docusate Sodium (Colace) 100 mg TID ORAL 10/26/19 18:00 11/22/19 17:59 10/29/19 12:23 Epoetin William (Epoetin William-EPBX(NON ESRD)) 10,000 unit SUBQ 10/27/19 21:00 01/25/20 20:59 10/27/19 22:20 Gabapentin (Neurontin) 100 mg THREE TIMES A DAY ORAL 10/26/19 18:00 11/22/19 17:59 10/29/19 12:23 Haloperidol (Haldol) 5 mg Q12H PRN ORAL Agitation 10/26/19 12:57 12/10/19 12:56 10/27/19 22:20 Haloperidol Lactate (Haldol) 5 mg Q6H PRN IM Agitation 10/26/19 12:57 12/10/19 12:56 10/28/19 21:06 Hydralazine HCl (Apresoline) 10 mg Q4H PRN IV For High Blood Pressure 10/26/19 13:07 01/24/20 13:06 10/26/19 17:49 Levothyroxine Sodium (Synthroid) 50 mcg DAILY IV 10/27/19 09:00 11/23/19 13:59 10/29/19 09:51 Pantoprazole (Protonix) 40 mg EVERY 12 HOURS IVP 10/26/19 21:00 11/22/19 08:59 10/29/19 08:50 Rivaroxaban (Xarelto) 15 mg QPM ORAL 10/27/19 16:30 01/25/20 16:29 10/28/19 16:49 Sennosides (Senokot) 8.6 mg HSPRN PRN ORAL Constipation 10/26/19 12:58 11/25/19 12:57 10/27/19 16:20 Sevelamer Carbonate (Renvela) 1,600 mg THREE TIMES A DAY ORAL 10/26/19 18:00 01/21/20 17:59 10/29/19 12:23 Sodium Bicarbonate 50 ml/ Dextrose 1,050 ml @ 50 mls/hr Q21H IV 10/27/19 05:00 11/26/19 04:59 10/28/19 23:59 Vitamin B Complex/ Vit C/Folic Acid (Nephrovite) 1 tab DAILY ORAL 10/27/19 09:00 11/22/19 08:59 10/29/19 08:50 Trinity Pan M.D. Oct 29, 2019 12:52
--- NOTE | 2019-10-29 14:03 | Diagnostic Imaging Report ---
RENAL ULTRASOUND - COMPLETE INDICATION: Renal failure. TECHNIQUE: Multiplanar ultrasound examination of the abdomen with greyscale and doppler imaging. COMPARISON: None FINDINGS: Abdominal ultrasound dated 10/23/2019 and renal ultrasound dated 12/21/2018 Right kidney: The kidneys are increased in size and echogenicity. Right kidney measures 9.1 cm. There is no hydronephrosis.. There is a simple appearing cyst in the upper pole measuring up to 2.9 cm, not well seen on prior examinations. Left kidney: The kidneys are decreased in size and echogenicity. Left kidney measures 8.9 cm. There is no hydronephrosis. Bladder: Decompressed by Lyles catheter, limiting evaluation. Incidental findings: Right pleural effusion. IMPRESSION: 1. Mildly atrophic kidneys. No hydronephrosis or nephrolithiasis. 2. Right pleural effusion.
[2019-10-29 16:00] VITALS: BP 140/77
[2019-10-29] MEDS: Xarelto 15mg tab ORAL SCH (16:12)
[2019-10-29 20:00] VITALS: BP 121/35
[2019-10-29] MEDS: Epoetin Alfa-EPBX (NON ESRD)10,000 unit/ml vial SUBQ SCH (20:30)
[2019-10-29] MEDS: Sodium Bicarbonate 50 ML in D5W 1000ml 1,000 ML IV SCH (20:30)
--- NOTE | 2019-10-29 23:25 | Psych Consult Progress Note ---
Psychiatry Progress Note Psychiatry Progress Note Subjective pt's mental condition is the same the pt is still have episodes o agitations benefits from restraints. sleep and appetite adequate Medications Current Medications Medications (Trade) Dose Ordered Sig/Cammy Route PRN Reason Start Time Stop Time Status Last Admin Dose Admin Acetaminophen (Tylenol) 650 mg Q6H PRN ORAL Pain Scale (3-5) 10/26/19 13:00 11/23/19 06:59 10/27/19 12:11 Amlodipine Besylate (Norvasc) 5 mg DAILY ORAL 10/29/19 09:00 11/25/19 08:59 10/29/19 08:51 Atorvastatin Calcium (Lipitor) 10 mg BEDTIME ORAL 10/26/19 21:00 01/21/20 20:59 10/29/19 20:30 Ceftriaxone Sodium 2 gm/ Dextrose 55 ml @ 110 mls/hr Q24H IVPB 10/27/19 12:00 10/31/19 11:59 10/29/19 11:33 Dextrose (Dextrose 50%) 25 ml Q30M PRN IV Hypoglycemia 10/26/19 13:15 01/20/20 21:44 Dextrose (Dextrose 50%) 50 ml Q30M PRN IV Hypoglycemia 10/26/19 13:15 01/20/20 21:44 Docusate Sodium (Colace) 100 mg TID ORAL 10/26/19 18:00 11/22/19 17:59 10/29/19 17:10 Epoetin William (Epoetin William-EPBX(NON ESRD)) 10,000 unit FRI-FRI-FRI SUBQ 10/27/19 21:00 01/25/20 20:59 10/29/19 20:30 Gabapentin (Neurontin) 100 mg THREE TIMES A DAY ORAL 10/26/19 18:00 11/22/19 17:59 10/29/19 17:09 Haloperidol (Haldol) 5 mg Q12H PRN ORAL Agitation 10/26/19 12:57 12/10/19 12:56 10/27/19 22:20 Haloperidol Lactate (Haldol) 5 mg Q6H PRN IM Agitation 10/26/19 12:57 12/10/19 12:56 10/28/19 21:06 Hydralazine HCl (Apresoline) 10 mg Q4H PRN IV For High Blood Pressure 10/26/19 13:07 01/24/20 13:06 10/26/19 17:49 Levothyroxine Sodium (Synthroid) 50 mcg DAILY IV 10/27/19 09:00 11/23/19 13:59 10/29/19 09:51 Pantoprazole (Protonix) 40 mg EVERY 12 HOURS IVP 10/26/19 21:00 11/22/19 08:59 10/29/19 20:30 Rivaroxaban (Xarelto) 15 mg QPM ORAL 10/27/19 16:30 01/25/20 16:29 10/29/19 16:12 Sennosides (Senokot) 8.6 mg HSPRN PRN ORAL Constipation 10/26/19 12:58 11/25/19 12:57 10/27/19 16:20 Sevelamer Carbonate (Renvela) 1,600 mg THREE TIMES A DAY ORAL 10/26/19 18:00 01/21/20 17:59 10/29/19 17:09 Sodium Bicarbonate 50 ml/ Dextrose 1,050 ml @ 50 mls/hr Q21H IV 10/27/19 05:00 11/26/19 04:59 10/29/19 20:30 Vitamin B Complex/ Vit C/Folic Acid (Nephrovite) 1 tab DAILY ORAL 10/27/19 09:00 11/22/19 08:59 10/29/19 08:50 Neurological/Psychiatric: Denies: no symptoms, anxiety, depressed, emotional problems, headache, numbness, paresthesia, pre-existing deficit, seizure, tingling, tremors, weakness, other Allergies: Coded Allergies: PENICILLINS (Verified Allergy, Unknown, 10/25/19) tolerated Ceftriaxone Objective Data Height (Feet): 5 Height (Inches): 8.00 Weight (Pounds): 189 Additional Comments: awake, confused, and disoriented. Mood is agitated. Affect is flat. Thought process, there is a paucity of thought content. Thought content, no suicidal or homicidal ideation. Cognition is impaired. Insight and judgment impaired. Assessment/Plan Assessment/Plan: 1. Dementia with behavior disturbance. 2. Acute encephalopathy. PLAN: 1. We will continue the Haldol IM 2. Discussed with the nurse. Dada Finch MD Oct 29, 2019 23:25
[2019-10-30] VITALS: BP 139/41
[2019-10-30 04:00] VITALS: BP 143/46
[2019-10-30 08:00] VITALS: BP 142/98
--- NOTE | 2019-10-30 08:01 | Pulmonology Progress Note ---
Reema Hanna DIRECTOR OF OUTREACH 10/30/19 0801: Subjective ROS Limited/Unobtainable: Yes Allergies: Coded Allergies: PENICILLINS (Verified Allergy, Unknown, 10/25/19) tolerated Ceftriaxone Subjective intermittently on O2 via NC and RA denies CP, SOB, cough remans afebrile, no leukocytosis on tele denies SOB, CP pulled out Lyles catheter 10/27, significant amount of bleeding noted, now cleared, Hgb at baseline labs pending for this am Objective Last 24 Hour Vital Signs Date Time Temp Pulse Resp B/P (MAP) Pulse Ox O2 Delivery O2 Flow Rate FiO2 10/30/19 04:00 96.0 56 24 143/46 (78) 98 10/30/19 04:00 59 10/30/19 00:00 58 10/30/19 00:00 96.8 58 24 139/41 (73) 97 10/29/19 21:00 Nasal Cannula 2.0 Nasal Cannula 2.0 10/29/19 20:12 60 18 95 Nasal Cannula 2.0 28 10/29/19 20:12 95 Nasal Cannula 2.0 28 10/29/19 20:00 60 10/29/19 20:00 96.2 64 20 121/35 (63) 97 10/29/19 16:00 96.7 78 19 140/77 (98) 100 10/29/19 16:00 60 10/29/19 12:00 Room Air Room Air 10/29/19 12:00 60 10/29/19 12:00 97.8 56 22 132/40 (70) 95 10/29/19 09:43 58 18 94 Nasal Cannula 2.0 28 10/29/19 09:42 94 Nasal Cannula 2.0 28 10/29/19 08:51 61 141/51 10/29/19 08:03 Nasal Cannula 2.0 Nasal Cannula 2.0 10/29/19 08:00 98.1 61 18 141/51 (81) 100 10/29/19 08:00 51 Intake and Output 10/29/19 10/30/19 19:00 07:00 Intake Total 600 ml Output Total 200 ml 200 ml Balance 400 ml -200 ml Intake Oral 250 ml IV Total 350 ml Output Urine Total 200 ml 200 ml # Bowel Movements 1 Objective General Appearance: no apparent distress, Hungarian speaking confused male, Lines, tubes and drains: peripheral HEENT: normocephalic, atraumatic, anicteric, mucous membranes moist, O2 via NC Respiratory/Chest: BS clear Cardiovascular/Chest: normal rate, regular rhythm Abdomen: normal bowel sounds, non tender, soft : Lyles urine clearing Extremities: partially amputated BL foot Skin Exam: warm/dry Neurologic: abnormal gait, alert, oriented , confused Musculoskeletal: atrophy - BLE Laboratory Tests 10/29/19 11:34: POC Whole Blood Glucose 170H 10/29/19 12:40: Urine Random Sodium 28 10/29/19 17:40: Stool Occult Blood Positive 10/30/19 03:25: POC Whole Blood Glucose 163H 10/30/19 06:18: POC Whole Blood Glucose 170H Current Medications Medications (Trade) Dose Ordered Sig/Cammy Route PRN Reason Start Time Stop Time Status Last Admin Dose Admin Acetaminophen (Tylenol) 650 mg Q6H PRN ORAL Pain Scale (3-5) 10/26/19 13:00 11/23/19 06:59 10/27/19 12:11 Amlodipine Besylate (Norvasc) 5 mg DAILY ORAL 10/29/19 09:00 11/25/19 08:59 10/29/19 08:51 Atorvastatin Calcium (Lipitor) 10 mg BEDTIME ORAL 10/26/19 21:00 01/21/20 20:59 10/29/19 20:30 Ceftriaxone Sodium 2 gm/ Dextrose 55 ml @ 110 mls/hr Q24H IVPB 10/27/19 12:00 10/31/19 11:59 10/29/19 11:33 Dextrose (Dextrose 50%) 25 ml Q30M PRN IV Hypoglycemia 10/26/19 13:15 01/20/20 21:44 Dextrose (Dextrose 50%) 50 ml Q30M PRN IV Hypoglycemia 10/26/19 13:15 01/20/20 21:44 Docusate Sodium (Colace) 100 mg TID ORAL 10/26/19 18:00 11/22/19 17:59 10/29/19 17:10 Epoetin William (Epoetin William-EPBX(NON ESRD)) 10,000 unit FRI-FRI-FRI SUBQ 10/27/19 21:00 01/25/20 20:59 10/29/19 20:30 Gabapentin (Neurontin) 100 mg THREE TIMES A DAY ORAL 10/26/19 18:00 11/22/19 17:59 10/29/19 17:09 Haloperidol (Haldol) 5 mg Q12H PRN ORAL Agitation 10/26/19 12:57 12/10/19 12:56 10/27/19 22:20 Haloperidol Lactate (Haldol) 5 mg Q6H PRN IM Agitation 10/26/19 12:57 12/10/19 12:56 10/28/19 21:06 Hydralazine HCl (Apresoline) 10 mg Q4H PRN IV For High Blood Pressure 10/26/19 13:07 01/24/20 13:06 10/26/19 17:49 Levothyroxine Sodium (Synthroid) 50 mcg DAILY IV 10/27/19 09:00 11/23/19 13:59 10/29/19 09:51 Pantoprazole (Protonix) 40 mg EVERY 12 HOURS IVP 10/26/19 21:00 11/22/19 08:59 10/29/19 20:30 Rivaroxaban (Xarelto) 15 mg QPM ORAL 10/27/19 16:30 01/25/20 16:29 10/29/19 16:12 Sennosides (Senokot) 8.6 mg HSPRN PRN ORAL Constipation 10/26/19 12:58 11/25/19 12:57 10/27/19 16:20 Sevelamer Carbonate (Renvela) 1,600 mg THREE TIMES A DAY ORAL 10/26/19 18:00 01/21/20 17:59 10/29/19 17:09 Sodium Bicarbonate 50 ml/ Dextrose 1,050 ml @ 50 mls/hr Q21H IV 10/27/19 05:00 11/26/19 04:59 10/29/19 20:30 Vitamin B Complex/ Vit C/Folic Acid (Nephrovite) 1 tab DAILY ORAL 10/27/19 09:00 11/22/19 08:59 10/29/19 08:50 Assessment/Plan Assessment/Plan ASSESSMENT Acute hypoxemic hypercapnic respiratory failure requiring BiPAP -resolved Acute metabolic encephalopathy likely due to hypoglycemia Diabetes mellitus with initial hypoglycemia Probably pneumonia Aspiration risk Acute kidney injury on chronic kidney disease Severe anemia requiring blood transfusion Metabolic acidosis Electrolyte imbalance :hyponatremia, hyperkalemia HTN with HTN urgency Dysphagia Hematuria 2 to pt pulled off his Lyles catheter PLAN OF CARE tele off BiPAP now on O2 via NC intermittently as well as RA hypercapnia resolved titrate FiO2 to keep sat > 90% pulm toilet 10/21 and 10/24 rapid COVID NGT, CXR 10/23 -> 1. Small layering right pleural effusion, not significantly changed. The previously noted small left pleural effusion is not as evident. 2. Prominent lung markings and haziness, right greater left, which may be related to pulmonary vascular congestion versus pneumonitis. This is not significantly changed. 3. Subsegmental atelectasis versus infiltrate in the medial left lung base, also not significantly changed. BiPAP prn abx as per ID recs -> Ceftriaxone , completing 10/30 ; s/p Vanco BCX 10/21 NGTD UCX NGT SCX if able CXR 10/25 -> stable , no significant change from before White Duplex BLE 10/25 -> NGT fup with CXR in am resp status improved ECHO with pEF 55-60% on chronic a/c with Xarelto ?unclear reason monitor volumes swallow eval with aspiration risk diet texture as per ST recs with strict asp precautions and assistance with meals gentle IV dextrose with bicarb, monitor acid base status , HgA1c -6.1 hold oral anti-glycemic SSI prn ; recommend sensitive SSI AMS was most likely due to episode of hypoglycemia CT head NGT for acute ICP renal US avoid nephrotoxic s/p Kayexalate and sodium bicarb gentle IVF f/up with nephro recs BP management with CCB and Hydralazine prn for BP spikes monitor HH with goal to keep Hgb above 7 stool OB anemia w/up noted , heme on board s/p 1 dose of Venofer on EPO hematuria resolved, Hgb at baseline GI prophayxlis supportive care thanks for a consult! case discussed and evaluated by supervising physician Jonathon Pabon MD 10/30/19 1349: Subjective Allergies: Coded Allergies: PENICILLINS (Verified Allergy, Unknown, 10/25/19) tolerated Ceftriaxone Assessment/Plan Assessment/Plan Patient seen and examined with DIRECTOR OF OUTREACH. Agree with above A&P as it reflects our joint deliberations. Reema Hanna DIRECTOR OF OUTREACH Oct 30, 2019 08:01 Jonathon Pabon MD Oct 30, 2019 13:49
--- NOTE | 2019-10-30 08:22 | General Progress Note ---
Assessment/Plan Problem List: (1) Hypertension ICD Codes: I10 - Essential (primary) hypertension SNOMED: 00195361 (2) Diabetes mellitus ICD Codes: E11.9 - Type 2 diabetes mellitus without complications SNOMED: 02870072 (3) Anemia ICD Codes: D64.9 - Anemia, unspecified SNOMED: 674154292 (4) Cholelithiasis ICD Codes: K80.20 - Calculus of gallbladder without cholecystitis without obstruction SNOMED: 613918661 (5) CHF (congestive heart failure) ICD Codes: I50.9 - Heart failure, unspecified SNOMED: 44730505 Assessment/Plan: patient on Xerallto stool ob positive but no overt GIB stable H&H fu cbc repeat stool ob ppi bid EGD and colonoscopy if needed Subjective ROS Limited/Unobtainable: Yes Allergies: Coded Allergies: PENICILLINS (Verified Allergy, Unknown, 10/25/19) tolerated Ceftriaxone Objective Last 24 Hour Vital Signs Date Time Temp Pulse Resp B/P (MAP) Pulse Ox O2 Delivery O2 Flow Rate FiO2 10/30/19 04:00 96.0 56 24 143/46 (78) 98 10/30/19 04:00 59 10/30/19 00:00 58 10/30/19 00:00 96.8 58 24 139/41 (73) 97 10/29/19 21:00 Nasal Cannula 2.0 Nasal Cannula 2.0 10/29/19 20:12 60 18 95 Nasal Cannula 2.0 28 10/29/19 20:12 95 Nasal Cannula 2.0 28 10/29/19 20:00 60 10/29/19 20:00 96.2 64 20 121/35 (63) 97 10/29/19 16:00 96.7 78 19 140/77 (98) 100 10/29/19 16:00 60 10/29/19 12:00 Room Air Room Air 10/29/19 12:00 60 10/29/19 12:00 97.8 56 22 132/40 (70) 95 10/29/19 09:43 58 18 94 Nasal Cannula 2.0 28 10/29/19 09:42 94 Nasal Cannula 2.0 28 10/29/19 08:51 61 141/51 Intake and Output 10/29/19 10/30/19 19:00 07:00 Intake Total 600 ml Output Total 200 ml 200 ml Balance 400 ml -200 ml Intake Oral 250 ml IV Total 350 ml Output Urine Total 200 ml 200 ml # Bowel Movements 1 Laboratory Tests 10/29/19 11:34: POC Whole Blood Glucose 170H 10/29/19 12:40: Urine Random Sodium 28 10/29/19 17:40: Stool Occult Blood Positive 10/30/19 03:25: POC Whole Blood Glucose 163H 10/30/19 06:18: POC Whole Blood Glucose 170H Height (Feet): 5 Height (Inches): 8.00 Weight (Pounds): 200 General Appearance: no apparent distress EENT: PERRL/EOMI Neck: supple Cardiovascular: normal rate Respiratory/Chest: decreased breath sounds Abdomen: normal bowel sounds, non tender, soft Lawrence Humphreys MD Oct 30, 2019 08:22
[2019-10-30 08:48] LABS: HEMATOCRIT 25.7 % (42.0-52.0); HEMOGLOBIN 7.9 G/DL (14.2-18.0); MEAN CORPUSCULAR VOLUME 99 FL (80-99); PLATELET COUNT 213 K/UL (150-450); RED BLOOD COUNT 2.58 M/UL (4.70-6.10); RED CELL DISTRIBUTION WIDTH 15.3 % (11.6-14.8); WHITE BLOOD COUNT 8.1 K/UL (4.8-10.8)
[2019-10-30] MEDS: Docusate 100mg cap ORAL SCH ×3 (08:56→17:18)
[2019-10-30] MEDS: Pantoprazole Inj IVP SCH ×2 (08:57→20:59)
[2019-10-30] MEDS: Nephrovite tab (Rena-Vite) ORAL SCH (08:57)
[2019-10-30 09:19] LABS: ALANINE AMINOTRANSFERASE 31 U/L (12-78); ALBUMIN 2.3 G/DL (3.4-5.0); ALBUMIN/GLOBULIN RATIO 0.7 (1.0-2.7); ALKALINE PHOSPHATASE 101 U/L (46-116); ANION GAP 7 mmol/L (5-15); ASPARTATE AMINO TRANSFERASE 48 U/L (15-37); BILIRUBIN,TOTAL 0.2 MG/DL (0.2-1.0); BLOOD UREA NITROGEN 79 mg/dL (7-18); CALCIUM 8.6 MG/DL (8.5-10.1); CARBON DIOXIDE 28 MMOL/L (21-32); CHLORIDE 96 MMOL/L (98-107); CREATININE 4.5 MG/DL (0.55-1.30); PHOSPHORUS 6.8 MG/DL (2.5-4.9); POTASSIUM 3.7 MMOL/L (3.5-5.1); SODIUM 131 MMOL/L (136-145)
--- NOTE | 2019-10-30 10:55 | Surgery Progress Note ---
Surgery Progress Note Subjective Additional Comments no acute events Objective Last 24 Hour Vital Signs Date Time Temp Pulse Resp B/P (MAP) Pulse Ox O2 Delivery O2 Flow Rate FiO2 10/30/19 08:56 59 143/46 10/30/19 08:00 67 10/30/19 08:00 96.5 58 20 142/98 (113) 98 10/30/19 04:00 96.0 56 24 143/46 (78) 98 10/30/19 04:00 59 10/30/19 00:00 58 10/30/19 00:00 96.8 58 24 139/41 (73) 97 10/29/19 21:00 Nasal Cannula 2.0 Nasal Cannula 2.0 10/29/19 20:12 60 18 95 Nasal Cannula 2.0 28 10/29/19 20:12 95 Nasal Cannula 2.0 28 10/29/19 20:00 60 10/29/19 20:00 96.2 64 20 121/35 (63) 97 10/29/19 16:00 96.7 78 19 140/77 (98) 100 10/29/19 16:00 60 10/29/19 12:00 Room Air Room Air 10/29/19 12:00 60 10/29/19 12:00 97.8 56 22 132/40 (70) 95 I&O Intake and Output 10/29/19 10/30/19 19:00 07:00 Intake Total 600 ml Output Total 200 ml 200 ml Balance 400 ml -200 ml Intake Oral 250 ml IV Total 350 ml Output Urine Total 200 ml 200 ml # Bowel Movements 1 Dressing: other Wound: other Drains: other Cardiovascular: RSR Respiratory: decreased breath sounds Abdomen: soft, non-tender, present bowel sounds Extremities: no cyanosis Laboratory Tests Test 10/29/19 11:34 10/29/19 12:40 10/29/19 17:40 10/30/19 03:25 POC Whole Blood Glucose 170 MG/DL (74-106) H 163 MG/DL (74-106) H Urine Random Sodium 28 mmol/L (20-110) Stool Occult Blood Positive (NEGATIVE) Test 10/30/19 06:18 10/30/19 08:20 POC Whole Blood Glucose 170 MG/DL (74-106) H White Blood Count 8.1 K/UL (4.8-10.8) Red Blood Count 2.58 M/UL (4.70-6.10) L Hemoglobin 7.9 G/DL (14.2-18.0) L Hematocrit 25.7 % (42.0-52.0) L Mean Corpuscular Volume 99 FL (80-99) Mean Corpuscular Hemoglobin 30.5 PG (27.0-31.0) Mean Corpuscular Hemoglobin Concent 30.6 G/DL (32.0-36.0) L Red Cell Distribution Width 15.3 % (11.6-14.8) H Platelet Count 213 K/UL (150-450) Mean Platelet Volume 7.8 FL (6.5-10.1) Neutrophils (%) (Auto) % (45.0-75.0) Lymphocytes (%) (Auto) % (20.0-45.0) Monocytes (%) (Auto) % (1.0-10.0) Eosinophils (%) (Auto) % (0.0-3.0) Basophils (%) (Auto) % (0.0-2.0) Differential Total Cells Counted 100 Neutrophils % (Manual) 86 % (45-75) H Lymphocytes % (Manual) 8 % (20-45) L Monocytes % (Manual) 6 % (1-10) Eosinophils % (Manual) 0 % (0-3) Basophils % (Manual) 0 % (0-2) Band Neutrophils 0 % (0-8) Platelet Estimate Adequate Platelet Morphology Normal Hypochromasia 1+ Anisocytosis 1+ Macrocytosis 1+ Sodium Level 131 MMOL/L (136-145) L Potassium Level 3.7 MMOL/L (3.5-5.1) Chloride Level 96 MMOL/L (98-107) L Carbon Dioxide Level 28 MMOL/L (21-32) Anion Gap 7 mmol/L (5-15) Blood Urea Nitrogen 79 mg/dL (7-18) H Creatinine 4.5 MG/DL (0.55-1.30) H Estimat Glomerular Filtration Rate 12.6 mL/min (>60) Glucose Level 178 MG/DL (74-106) H Calcium Level 8.6 MG/DL (8.5-10.1) Phosphorus Level 6.8 MG/DL (2.5-4.9) H Magnesium Level 2.2 MG/DL (1.8-2.4) Total Bilirubin 0.2 MG/DL (0.2-1.0) Aspartate Amino Transf (AST/SGOT) 48 U/L (15-37) H Alanine Aminotransferase (ALT/SGPT) 31 U/L (12-78) Alkaline Phosphatase 101 U/L (46-116) C-Reactive Protein, Quantitative 2.0 mg/dL (0.00-0.90) H Pro-B-Type Natriuretic Peptide 17709 pg/mL (0-125) H Total Protein 5.7 G/DL (6.4-8.2) L Albumin 2.3 G/DL (3.4-5.0) L Globulin 3.4 g/dL Albumin/Globulin Ratio 0.7 (1.0-2.7) L Plan Problems: (1) Hypercarbia (2) Pleural effusion (3) Chronic renal failure (4) Anemia (5) CHF (congestive heart failure) (6) Bacteremia (7) Cellulitis Assessment & Plan: penile swelling improved no active bleeding reyes okay will monitor (8) Hypoglycemia (9) Hyponatremia (10) ATN (acute tubular necrosis) (11) Metabolic acidosis (12) Pneumonia (13) Cellulitis of foot Assessment & Plan: Pt presented on admission with Bilat TMA. Pressure injuries both heels. Stable dry necrosis note to Plantar /lateral L TMA. L Heel is boggy with non- Blanchable erythema. . R Heel Boggy with Non-Blanchable erythema.Haemosiderin with Xerosis skin noted to R and L lower ext. Darker skin tone without erythema , induration or fluctuance Medial L Malleolus. Darker skin tone without erythema or induration noted to sacrum. Tx.Plan: Apply Moisture Barrier Paste to Sacrum. Cover with Optifoam drsg.Change every 3 days and prn. Apply Betadine to eschar plantar/lateral L TMA . Cover with Optifoam drsg. Change every 3 days and prn. Apply Cavilon Skin Barrier to both heels and Malleoli. Cover each site with Optifoam drsg. Change every 7days and prn. Reposition at least every 2hours or as tolerated. Off load heels with pillow.Hx prior amputation prior MRI and plain films reviewed wounds stable and local care being provided no abscess noted cont with dressings elevate heels with pillow turn q2h off load pressure air mattress will follow with recs thank you (14) Osteomyelitis (15) History of hypertension (16) Renal failure (ARF), acute on chronic (17) Acute encephalopathy (18) Diabetes mellitus (19) Hypertension (20) Cholelithiasis Assessment & Plan: US reviewed exam benign asymptomatic cholelithiasis alk phos mild elevated lfts improved trend labs no acute surgical intervention planned Liver: Liver measures 14.8 cm. No intrahepatic bile duct dilation. Gallbladder: Small stone in the gallbladder. No significant gallbladder wall thickening or pericholecystic fluid. Negative sonographic Bianchi's sign. Common bile duct: Normal common bile duct measuring 4.5 mm. No stones. No dilation. Pancreas: Pancreas is not visualized due to overlying bowel gas. Kidneys: Right kidney measures 9.1 cm in length. No hydronephrosis or stone. Left kidney not visualized due to patient's body habitus. Spleen: Spleen measures 9.4 cm. No focal lesion. Aorta: Visualized portions of the aorta are grossly unremarkable. The mid and distal portions are obscured by bowel gas. Inferior vena cava: Unremarkable. Free fluid: No ascites. Tubes, lines and devices: Reyes catheter in a decompressed bladder. IMPRESSION: Small stone in the gallbladder. No significant gallbladder wall thickening or pericholecystic fluid. Negative sonographic Bianchi's sign. Mariusz Diehl Oct 30, 2019 10:55
--- NOTE | 2019-10-30 11:07 | Nephrology Progress Note ---
Assessment/Plan Problem List: (1) Renal failure (ARF), acute on chronic (2) Metabolic acidosis (3) Electrolyte imbalance Assessment: Hyponatremia and hyperkalemia (4) Anemia (5) CHF (congestive heart failure) Assessment 79-year-old male is admitted for hypoglycemia Patient has renal failure which appears to be acute on chronic Hyperkalemia Hyponatremia CHF, pleural effusion, pneumonia Anemia Metabolic acidosis Hypothyroidism Plan October 29: Serum creatinine rising. Serum creatinine 4.5 today. Calculated creatinine clearance is 12. Kidney ultrasound ordered yesterday results were reviewed. Patient appears to have acute renal failure due to underlying sepsis and nephrotoxic medications. Patient requires dialysis treatment. Ordered to obtain consent from the responsible green party. Will communicate with PMD and or he is coverage. October 28: Serum creatinine higher to 4.2 today. Blood pressure appears more stable. In view of worsening renal failure, will order stat kidney ultrasound and urine studies. Continue to monitor renal parameters. Patient is full code. Worsening renal parameters may lead to hemodialysis treatment. October 27: Patient pulled out the Lyles catheter. Serum creatinine went up to 3.8. Blood pressure somewhat low. Heart rate in 50s. Will discontinue Coreg. We will continue to monitor renal parameters. October 26: Serum creatinine lower again today. Will abort the dialysis plan. Continue per consultants. Continue to monitor renal parameters. Medication list reviewed. October 25: Clinically improving. Serum creatinine lower. Urine output increased. No dialysis planned at this time. Continue per consultants. October 24: Patient's respiratory status somewhat improved. Serum creatinine down to 3.9. Urinary output somewhat increased. Will hold placement of dialysis catheter at this time. Blood pressure medication adjusted. Continue to monitor renal parameters. Per orders. October 23: Patient remains on BiPAP. More Kayexalate ordered. Will consider hemodialysis to correct fluid overload and hyperkalemia and acidosis. Will discuss with PMD. Meanwhile IV Synthroid started. Discussed with RN Timothy Patient already transfused 1 unit for severe anemia previously Will initiate Epogen 10,000 units subcutaneously 1 dose of IV iron Venofer 200 g IV Kayexalate for hyperkalemia as needed 2D echocardiogram ordered, ejection fraction is reported normal Kidney ultrasound ordered: Kidneys: Right kidney measures 9.1 cm in length. No hydronephrosis or stone. Left kidney not visualized due to patient's body habitus. Avoid nephrotoxic's Monitor renal parameters Will hold insulin and hypoglycemic agents until hypoglycemia is reasonably resolved Subjective ROS Limited/Unobtainable: Yes Objective Objective Last 24 Hour Vital Signs Date Time Temp Pulse Resp B/P (MAP) Pulse Ox O2 Delivery O2 Flow Rate FiO2 10/30/19 08:56 59 143/46 10/30/19 08:00 67 10/30/19 08:00 96.5 58 20 142/98 (113) 98 10/30/19 04:00 96.0 56 24 143/46 (78) 98 10/30/19 04:00 59 10/30/19 00:00 58 10/30/19 00:00 96.8 58 24 139/41 (73) 97 10/29/19 21:00 Nasal Cannula 2.0 Nasal Cannula 2.0 10/29/19 20:12 60 18 95 Nasal Cannula 2.0 28 10/29/19 20:12 95 Nasal Cannula 2.0 28 10/29/19 20:00 60 10/29/19 20:00 96.2 64 20 121/35 (63) 97 10/29/19 16:00 96.7 78 19 140/77 (98) 100 10/29/19 16:00 60 10/29/19 12:00 Room Air Room Air 10/29/19 12:00 60 10/29/19 12:00 97.8 56 22 132/40 (70) 95 Intake and Output 10/29/19 10/30/19 19:00 07:00 Intake Total 600 ml Output Total 200 ml 200 ml Balance 400 ml -200 ml Intake Oral 250 ml IV Total 350 ml Output Urine Total 200 ml 200 ml # Bowel Movements 1 Current Medications Medications (Trade) Dose Ordered Sig/Cammy Route PRN Reason Start Time Stop Time Status Last Admin Dose Admin Acetaminophen (Tylenol) 650 mg Q6H PRN ORAL Pain Scale (3-5) 10/26/19 13:00 11/23/19 06:59 10/27/19 12:11 Amlodipine Besylate (Norvasc) 5 mg DAILY ORAL 10/29/19 09:00 11/25/19 08:59 10/30/19 08:56 Atorvastatin Calcium (Lipitor) 10 mg BEDTIME ORAL 10/26/19 21:00 01/21/20 20:59 10/29/19 20:30 Ceftriaxone Sodium 2 gm/ Dextrose 55 ml @ 110 mls/hr Q24H IVPB 10/27/19 12:00 10/31/19 11:59 10/29/19 11:33 Dextrose (Dextrose 50%) 25 ml Q30M PRN IV Hypoglycemia 10/26/19 13:15 01/20/20 21:44 Dextrose (Dextrose 50%) 50 ml Q30M PRN IV Hypoglycemia 10/26/19 13:15 01/20/20 21:44 Docusate Sodium (Colace) 100 mg TID ORAL 10/26/19 18:00 11/22/19 17:59 10/30/19 08:56 Epoetin William (Epoetin William-EPBX(NON ESRD)) 10,000 unit SUBQ 10/27/19 21:00 01/25/20 20:59 10/29/19 20:30 Gabapentin (Neurontin) 100 mg THREE TIMES A DAY ORAL 10/26/19 18:00 11/22/19 17:59 10/30/19 08:56 Haloperidol (Haldol) 5 mg Q12H PRN ORAL Agitation 10/26/19 12:57 12/10/19 12:56 10/27/19 22:20 Haloperidol Lactate (Haldol) 5 mg Q6H PRN IM Agitation 10/26/19 12:57 12/10/19 12:56 10/28/19 21:06 Hydralazine HCl (Apresoline) 10 mg Q4H PRN IV For High Blood Pressure 10/26/19 13:07 01/24/20 13:06 10/26/19 17:49 Levothyroxine Sodium (Synthroid) 50 mcg DAILY IV 10/27/19 09:00 11/23/19 13:59 10/30/19 09:06 Pantoprazole (Protonix) 40 mg EVERY 12 HOURS IVP 10/26/19 21:00 11/22/19 08:59 10/30/19 08:57 Rivaroxaban (Xarelto) 15 mg QPM ORAL 10/27/19 16:30 01/25/20 16:29 10/29/19 16:12 Sennosides (Senokot) 8.6 mg HSPRN PRN ORAL Constipation 10/26/19 12:58 11/25/19 12:57 10/27/19 16:20 Sevelamer Carbonate (Renvela) 1,600 mg THREE TIMES A DAY ORAL 10/26/19 18:00 01/21/20 17:59 10/30/19 08:56 Sodium Bicarbonate 50 ml/ Dextrose 1,050 ml @ 50 mls/hr Q21H IV 10/27/19 05:00 11/26/19 04:59 10/29/19 20:30 Vitamin B Complex/ Vit C/Folic Acid (Nephrovite) 1 tab DAILY ORAL 10/27/19 09:00 11/22/19 08:59 10/30/19 08:57 Laboratory Tests 10/29/19 11:34: POC Whole Blood Glucose 170H 10/29/19 12:40: Urine Random Sodium 28 10/29/19 17:40: Stool Occult Blood Positive 10/30/19 03:25: POC Whole Blood Glucose 163H 10/30/19 06:18: POC Whole Blood Glucose 170H 10/30/19 08:20: White Blood Count 8.1, Red Blood Count 2.58L, Hemoglobin 7.9L, Hematocrit 25.7L , Mean Corpuscular Volume 99, Mean Corpuscular Hemoglobin 30.5, Mean Corpuscular Hemoglobin Concent 30.6L, Red Cell Distribution Width 15.3H, Platelet Count 213, Mean Platelet Volume 7.8, Neutrophils (%) (Auto) , Lymphocytes (%) (Auto) , Monocytes (%) (Auto) , Eosinophils (%) (Auto) , Basophils (%) (Auto) , Differential Total Cells Counted 100, Neutrophils % ( Manual) 86H, Lymphocytes % (Manual) 8L, Monocytes % (Manual) 6, Eosinophils % ( Manual) 0, Basophils % (Manual) 0, Band Neutrophils 0, Platelet Estimate Adequate, Platelet Morphology Normal, Hypochromasia 1+, Anisocytosis 1+, Macrocytosis 1+, Sodium Level 131L, Potassium Level 3.7, Chloride Level 96L, Carbon Dioxide Level 28, Anion Gap 7, Blood Urea Nitrogen 79H, Creatinine 4.5H, Estimat Glomerular Filtration Rate 12.6, Glucose Level 178H, Calcium Level 8.6, Phosphorus Level 6.8H, Magnesium Level 2.2, Total Bilirubin 0.2, Aspartate Amino Transf (AST/SGOT) 48H, Alanine Aminotransferase (ALT/SGPT) 31, Alkaline Phosphatase 101, C-Reactive Protein, Quantitative 2.0H, Pro-B-Type Natriuretic Peptide 40131G, Total Protein 5.7L, Albumin 2.3L, Globulin 3.4, Albumin/ Globulin Ratio 0.7L Height (Feet): 5 Height (Inches): 8.00 Weight (Pounds): 200 General Appearance: lethargic, mild distress Cardiovascular: bradycardia Respiratory/Chest: decreased breath sounds Abdomen: distended Objective No change Naveed Vanegas MD Oct 30, 2019 11:07
[2019-10-30 12:00] VITALS: BP 123/47
[2019-10-30] MEDS: cefTRIAXone 2 GM in D5W 55 ML IVPB SCH (12:58)
[2019-10-30 16:00] VITALS: BP 135/48
[2019-10-30] MEDS: Xarelto 15mg tab ORAL SCH (16:43)
[2019-10-30] MEDS: Sodium Bicarbonate 50 ML in D5W 1000ml 1,000 ML IV SCH (17:19)
[2019-10-30 20:00] VITALS: BP 123/54
[2019-10-31] VITALS: BP_SYST 123; BP_SYST 140; BP_DIAS 53; BP_DIAS 54
[2019-10-31 04:00] VITALS: BP 102/55
--- NOTE | 2019-10-31 07:55 | Pulmonology Progress Note ---
Subjective ROS Limited/Unobtainable: Yes Allergies: Coded Allergies: PENICILLINS (Verified Allergy, Unknown, 10/25/19) tolerated Ceftriaxone Subjective intermittently on O2 via NC and RA denies CP, SOB, cough remans afebrile, no leukocytosis on tele denies SOB, CP pulled out Lyles catheter 10/27, significant amount of bleeding noted, now cleared, Hgb at baseline labs pending for this am Objective Last 24 Hour Vital Signs Date Time Temp Pulse Resp B/P (MAP) Pulse Ox O2 Delivery O2 Flow Rate FiO2 10/31/19 04:00 97.1 54 24 102/55 (71) 10/31/19 04:00 59 10/31/19 00:00 97.0 55 24 123/54 (77) 10/31/19 00:00 59 10/30/19 21:00 Nasal Cannula 2.0 Nasal Cannula 2.0 10/30/19 20:00 53 10/30/19 20:00 97.0 55 24 123/54 (77) 99 10/30/19 16:00 57 10/30/19 16:00 96.9 58 20 135/48 (77) 100 10/30/19 12:00 58 10/30/19 12:00 96.6 53 18 123/47 (72) 100 10/30/19 09:00 Nasal Cannula 2.0 Nasal Cannula 2.0 10/30/19 08:56 59 143/46 10/30/19 08:00 67 10/30/19 08:00 96.5 58 20 142/98 (113) 98 Intake and Output 10/30/19 10/31/19 19:00 07:00 Intake Total 720 ml 150 ml Output Total 100 ml Balance 620 ml 150 ml Intake Oral 720 ml 150 ml Output Urine Total 100 ml # Bowel Movements 1 Objective General Appearance: no apparent distress, Kyrgyz speaking confused male, Lines, tubes and drains: peripheral HEENT: normocephalic, atraumatic, anicteric, mucous membranes moist, O2 via NC Respiratory/Chest: BS clear Cardiovascular/Chest: normal rate, regular rhythm Abdomen: normal bowel sounds, non tender, soft : Lyles urine clearing Extremities: partially amputated BL foot Skin Exam: warm/dry Neurologic: abnormal gait, alert, oriented , confused Musculoskeletal: atrophy - BLE Laboratory Tests 10/30/19 08:20: White Blood Count 8.1, Red Blood Count 2.58L, Hemoglobin 7.9L, Hematocrit 25.7L , Mean Corpuscular Volume 99, Mean Corpuscular Hemoglobin 30.5, Mean Corpuscular Hemoglobin Concent 30.6L, Red Cell Distribution Width 15.3H, Platelet Count 213, Mean Platelet Volume 7.8, Neutrophils (%) (Auto) , Lymphocytes (%) (Auto) , Monocytes (%) (Auto) , Eosinophils (%) (Auto) , Basophils (%) (Auto) , Differential Total Cells Counted 100, Neutrophils % ( Manual) 86H, Lymphocytes % (Manual) 8L, Monocytes % (Manual) 6, Eosinophils % ( Manual) 0, Basophils % (Manual) 0, Band Neutrophils 0, Platelet Estimate Adequate, Platelet Morphology Normal, Hypochromasia 1+, Anisocytosis 1+, Macrocytosis 1+, Sodium Level 131L, Potassium Level 3.7, Chloride Level 96L, Carbon Dioxide Level 28, Anion Gap 7, Blood Urea Nitrogen 79H, Creatinine 4.5H, Estimat Glomerular Filtration Rate 12.6, Glucose Level 178H, Calcium Level 8.6, Phosphorus Level 6.8H, Magnesium Level 2.2, Total Bilirubin 0.2, Aspartate Amino Transf (AST/SGOT) 48H, Alanine Aminotransferase (ALT/SGPT) 31, Alkaline Phosphatase 101, C-Reactive Protein, Quantitative 2.0H, Pro-B-Type Natriuretic Peptide 37553Q, Total Protein 5.7L, Albumin 2.3L, Globulin 3.4, Albumin/ Globulin Ratio 0.7L 10/30/19 16:41: POC Whole Blood Glucose [Pending] 10/31/19 01:16: POC Whole Blood Glucose [Pending] 10/31/19 07:30: White Blood Count [Pending], Red Blood Count [Pending], Hemoglobin [Pending], Hematocrit [Pending], Mean Corpuscular Volume [Pending], Mean Corpuscular Hemoglobin [Pending], Mean Corpuscular Hemoglobin Concent [Pending], Red Cell Distribution Width [Pending], Platelet Count [Pending], Mean Platelet Volume [ Pending], Neutrophils (%) (Auto) [Pending], Lymphocytes (%) (Auto) [Pending], Monocytes (%) (Auto) [Pending], Eosinophils (%) (Auto) [Pending], Basophils (%) (Auto) [Pending], Sodium Level [Pending], Potassium Level [Pending], Chloride Level [Pending], Carbon Dioxide Level [Pending], Blood Urea Nitrogen [Pending], Creatinine [Pending], Estimat Glomerular Filtration Rate [Pending], Glucose Level [Pending], Calcium Level [Pending], Phosphorus Level [Pending], Magnesium Level [Pending], Total Bilirubin [Pending], Aspartate Amino Transf (AST/SGOT) [ Pending], Alanine Aminotransferase (ALT/SGPT) [Pending], Alkaline Phosphatase [ Pending], C-Reactive Protein, Quantitative [Pending], Pro-B-Type Natriuretic Peptide [Pending], Total Protein [Pending], Albumin [Pending], Globulin [Pending ], Prothrombin Time [Pending], Prothromb Time International Ratio [Pending], Activated Partial Thromboplast Time [Pending], Uric Acid [Pending] Current Medications Medications (Trade) Dose Ordered Sig/Cammy Route PRN Reason Start Time Stop Time Status Last Admin Dose Admin Acetaminophen (Tylenol) 650 mg Q6H PRN ORAL Pain Scale (3-5) 10/26/19 13:00 11/23/19 06:59 10/27/19 12:11 Amlodipine Besylate (Norvasc) 5 mg DAILY ORAL 10/29/19 09:00 11/25/19 08:59 10/30/19 08:56 Atorvastatin Calcium (Lipitor) 10 mg BEDTIME ORAL 10/26/19 21:00 01/21/20 20:59 10/30/19 20:59 Ceftriaxone Sodium 2 gm/ Dextrose 55 ml @ 110 mls/hr Q24H IVPB 10/27/19 12:00 10/31/19 11:59 10/30/19 12:58 Dextrose (Dextrose 50%) 25 ml Q30M PRN IV Hypoglycemia 10/26/19 13:15 01/20/20 21:44 Dextrose (Dextrose 50%) 50 ml Q30M PRN IV Hypoglycemia 10/26/19 13:15 01/20/20 21:44 Docusate Sodium (Colace) 100 mg TID ORAL 10/26/19 18:00 11/22/19 17:59 10/30/19 17:18 Epoetin William (Epoetin William-EPBX(NON ESRD)) 10,000 unit FRI-FRI-FRI SUBQ 10/27/19 21:00 01/25/20 20:59 10/29/19 20:30 Gabapentin (Neurontin) 100 mg THREE TIMES A DAY ORAL 10/26/19 18:00 11/22/19 17:59 10/30/19 17:18 Haloperidol (Haldol) 5 mg Q12H PRN ORAL Agitation 10/26/19 12:57 12/10/19 12:56 10/27/19 22:20 Haloperidol Lactate (Haldol) 5 mg Q6H PRN IM Agitation 10/26/19 12:57 12/10/19 12:56 10/28/19 21:06 Hydralazine HCl (Apresoline) 10 mg Q4H PRN IV For High Blood Pressure 10/26/19 13:07 01/24/20 13:06 10/26/19 17:49 Levothyroxine Sodium (Synthroid) 50 mcg DAILY IV 10/27/19 09:00 11/23/19 13:59 10/30/19 09:06 Pantoprazole (Protonix) 40 mg EVERY 12 HOURS IVP 10/26/19 21:00 11/22/19 08:59 10/30/19 20:59 Rivaroxaban (Xarelto) 15 mg QPM ORAL 10/27/19 16:30 01/25/20 16:29 10/30/19 16:43 Sennosides (Senokot) 8.6 mg HSPRN PRN ORAL Constipation 10/26/19 12:58 11/25/19 12:57 10/27/19 16:20 Sevelamer Carbonate (Renvela) 1,600 mg THREE TIMES A DAY ORAL 10/26/19 18:00 01/21/20 17:59 10/30/19 17:18 Sodium Bicarbonate 50 ml/ Dextrose 1,050 ml @ 50 mls/hr Q21H IV 10/27/19 05:00 11/26/19 04:59 10/30/19 17:19 Vitamin B Complex/ Vit C/Folic Acid (Nephrovite) 1 tab DAILY ORAL 10/27/19 09:00 11/22/19 08:59 10/30/19 08:57 Assessment/Plan Assessment/Plan ASSESSMENT Acute hypoxemic hypercapnic respiratory failure requiring BiPAP -resolved Acute metabolic encephalopathy likely due to hypoglycemia Diabetes mellitus with initial hypoglycemia Probably pneumonia Aspiration risk Acute kidney injury on chronic kidney disease Severe anemia requiring blood transfusion Metabolic acidosis Electrolyte imbalance :hyponatremia, hyperkalemia HTN with HTN urgency Dysphagia Hematuria 2 to pt pulled off his Lyles catheter PLAN OF CARE tele off BiPAP now on O2 via NC intermittently as well as RA hypercapnia resolved titrate FiO2 to keep sat > 90% pulm toilet 10/21 and 10/24 rapid COVID NGT, CXR 10/23 -> 1. Small layering right pleural effusion, not significantly changed. The previously noted small left pleural effusion is not as evident. 2. Prominent lung markings and haziness, right greater left, which may be related to pulmonary vascular congestion versus pneumonitis. This is not significantly changed. 3. Subsegmental atelectasis versus infiltrate in the medial left lung base, also not significantly changed. BiPAP prn abx as per ID recs -> Ceftriaxone , completing 10/30 ; s/p Vanco BCX 10/21 NGTD UCX NGT SCX if able CXR 10/25 -> stable , no significant change from before [place] Duplex BLE 10/25 -> NGT fup with CXR this am -pending resp status improved ECHO with pEF 55-60% on chronic a/c with Xarelto ?unclear reason monitor volumes swallow eval with aspiration risk diet texture as per ST recs with strict asp precautions and assistance with meals gentle IV dextrose with bicarb, monitor acid base status , HgA1c -6.1 hold oral anti-glycemic SSI prn ; recommend sensitive SSI AMS was most likely due to episode of hypoglycemia CT head NGT for acute ICP renal US atrophic kidneys, no hydro avoid nephrotoxic s/p Kayexalate and sodium bicarb gentle IVF f/up with nephro recs BP management with CCB and Hydralazine prn for BP spikes monitor HH with goal to keep Hgb above 7 stool OB anemia w/up noted , heme on board s/p 1 dose of Venofer on EPO hematuria resolved, Hgb at baseline GI prophayxlis supportive care thanks for a consult! case discussed and evaluated by supervising physician Reema Hanna [employer] Oct 31, 2019 07:55
[2019-10-31 07:57] LABS: HEMATOCRIT 25.8 % (42.0-52.0); HEMOGLOBIN 7.9 G/DL (14.2-18.0); MEAN CORPUSCULAR VOLUME 99 FL (80-99); PLATELET COUNT 203 K/UL (150-450); RED CELL DISTRIBUTION WIDTH 15.7 % (11.6-14.8); WHITE BLOOD COUNT 9.6 K/UL (4.8-10.8)
[2019-10-31 08:05] LABS: INR 1.2 (0.9-1.1)
[2019-10-31 08:18] VITALS: BP 143/42
[2019-10-31 08:23] LABS: ALANINE AMINOTRANSFERASE 32 U/L (12-78); ALBUMIN 2.5 G/DL (3.4-5.0); ALBUMIN/GLOBULIN RATIO 0.9 (1.0-2.7); ALKALINE PHOSPHATASE 137 U/L (46-116); ANION GAP 8 mmol/L (5-15); ASPARTATE AMINO TRANSFERASE 47 U/L (15-37); BILIRUBIN,TOTAL 0.2 MG/DL (0.2-1.0); BLOOD UREA NITROGEN 82 mg/dL (7-18); CALCIUM 8.5 MG/DL (8.5-10.1); CARBON DIOXIDE 28 MMOL/L (21-32); CHLORIDE 93 MMOL/L (98-107); CREATININE 4.9 MG/DL (0.55-1.30); POTASSIUM 3.9 MMOL/L (3.5-5.1); SODIUM 128 MMOL/L (136-145)
--- NOTE | 2019-10-31 08:29 | General Progress Note ---
Assessment/Plan Problem List: (1) Hypertension ICD Codes: I10 - Essential (primary) hypertension SNOMED: 79363615 (2) Diabetes mellitus ICD Codes: E11.9 - Type 2 diabetes mellitus without complications SNOMED: 84509722 (3) Anemia ICD Codes: D64.9 - Anemia, unspecified SNOMED: 155411414 (4) Cholelithiasis ICD Codes: K80.20 - Calculus of gallbladder without cholecystitis without obstruction SNOMED: 279721561 (5) CHF (congestive heart failure) ICD Codes: I50.9 - Heart failure, unspecified SNOMED: 54428865 Assessment/Plan: patient on Xerallto stool ob positive but no overt GIB stable H&H fu cbc repeat stool ob ppi bid EGD and colonoscopy if needed management of hyponatremia per nephrology Subjective ROS Limited/Unobtainable: No Allergies: Coded Allergies: PENICILLINS (Verified Allergy, Unknown, 10/25/19) tolerated Ceftriaxone Objective Last 24 Hour Vital Signs Date Time Temp Pulse Resp B/P (MAP) Pulse Ox O2 Delivery O2 Flow Rate FiO2 10/31/19 08:18 96.9 58 22 143/42 (75) 10/31/19 04:00 97.1 54 24 102/55 (71) 10/31/19 04:00 59 10/31/19 00:00 97.0 55 24 123/54 (77) 10/31/19 00:00 59 10/30/19 21:00 Nasal Cannula 2.0 Nasal Cannula 2.0 10/30/19 20:00 53 10/30/19 20:00 97.0 55 24 123/54 (77) 99 10/30/19 16:00 57 10/30/19 16:00 96.9 58 20 135/48 (77) 100 10/30/19 12:00 58 10/30/19 12:00 96.6 53 18 123/47 (72) 100 10/30/19 09:00 Nasal Cannula 2.0 Nasal Cannula 2.0 10/30/19 08:56 59 143/46 Intake and Output 10/30/19 10/31/19 19:00 07:00 Intake Total 720 ml 150 ml Output Total 100 ml Balance 620 ml 150 ml Intake Oral 720 ml 150 ml Output Urine Total 100 ml # Bowel Movements 1 Laboratory Tests 10/30/19 16:41: POC Whole Blood Glucose [Pending] 10/31/19 01:16: POC Whole Blood Glucose [Pending] 10/31/19 07:30: White Blood Count 9.6, Red Blood Count 2.60L, Hemoglobin 7.9L, Hematocrit 25.8L , Mean Corpuscular Volume 99, Mean Corpuscular Hemoglobin 30.3, Mean Corpuscular Hemoglobin Concent 30.5L, Red Cell Distribution Width 15.7H, Platelet Count 203, Mean Platelet Volume 7.6, Neutrophils (%) (Auto) , Lymphocytes (%) (Auto) , Monocytes (%) (Auto) , Eosinophils (%) (Auto) , Basophils (%) (Auto) , Neutrophils % (Manual) [Pending], Lymphocytes % (Manual) [Pending], Platelet Estimate [Pending], Platelet Morphology [Pending], Prothrombin Time 12.7H, Prothromb Time International Ratio 1.2H, Activated Partial Thromboplast Time 40H, Sodium Level 128L, Potassium Level 3.9, Chloride Level 93L, Carbon Dioxide Level 28, Anion Gap 8, Blood Urea Nitrogen 82H, Creatinine 4.9H, Estimat Glomerular Filtration Rate 11.5, Glucose Level 189H, Uric Acid [Pending], Calcium Level 8.5, Phosphorus Level [Pending], Magnesium Level [Pending], Total Bilirubin 0.2, Aspartate Amino Transf (AST/SGOT) 47H, Alanine Aminotransferase (ALT/SGPT) 32, Alkaline Phosphatase 137H, C-Reactive Protein, Quantitative [Pending], Pro-B-Type Natriuretic Peptide [Pending], Total Protein 5.4L, Albumin 2.5L, Globulin 2.9, Albumin/Globulin Ratio 0.9L Height (Feet): 5 Height (Inches): 8.00 Weight (Pounds): 200 General Appearance: no apparent distress EENT: normal ENT inspection Neck: supple Cardiovascular: normal rate Respiratory/Chest: decreased breath sounds Abdomen: hypoactive bowel sounds Extremities: non-tender Lawrence Humphreys MD Oct 31, 2019 08:29
[2019-10-31 08:35] LABS: PHOSPHORUS 7.4 MG/DL (2.5-4.9)
--- NOTE | 2019-10-31 08:55 | Diagnostic Imaging Report ---
EXAM: XR Chest, 1 View CLINICAL HISTORY: SOB TECHNIQUE: Frontal view of the chest. COMPARISON: Chest x-ray 10/26/19 FINDINGS: Lungs: Continued retrocardiac opacification. Hypoventilatory lungs. Pleural space: Small bilateral pleural effusions have improved. No pneumothorax. Heart: Unremarkable. No cardiomegaly. Mediastinum: Unremarkable. Bones/joints: Unremarkable. Vasculature: Mild central vascular congestion, interstitial thickening, slightly improved. IMPRESSION: 1. Mild central vascular congestion, interstitial thickening, slightly improved. 2. Small bilateral pleural effusions have improved. 3. Continued retrocardiac opacification.
[2019-10-31] MEDS: Pantoprazole Inj IVP SCH ×2 (09:53→22:01)
[2019-10-31] MEDS: Nephrovite tab (Rena-Vite) ORAL SCH (09:53)
[2019-10-31] MEDS: Docusate 100mg cap ORAL SCH ×3 (09:54→17:48)
--- NOTE | 2019-10-31 10:01 | Infectious Diseases Prog Note ---
Assessment/Plan 79yo M from SNF who p/w hypoglycemia and resp failure: Acute hypoxic respiratory failure, on BiPAP> now on 2l NC> RA > 2l NC Rapid COVID neg x2 (10/21, 10/24) Pneumonia on CXR Volume overload -10/25 CXR: Bilateral alveolar densities are unchanged -10/24 sp cx normal resp demario (prelim) -10/23 CXR: 1. Small layering right pleural effusion, not significantly changed. The previously noted small left pleural effusion is not as evident.Prominent lung markings and haziness, right greater left, which may be related to pulmonary vascular congestion versus pneumonitis. This is not significantly changed.. Subsegmental atelectasis versus infiltrate in the medial left lung base, also not significantly changed. 10/21 CXR: 1. Small bilateral pleural effusions. Bibasilar atelectasis versus pneumonia. 2. Prominent lung markings and hazy opacities in right greater than left lungs may represent artifact versus pulmonary vasculature congestion and edema versus infectious/inflammatory process. Afebrile No leukocytosis Anemia to 6.8, improved UA neg, UCx neg R/o bacteremia 10/21 BCx NTD ALEXIS on CKD, worsening Plan: Cont CTX 2g IV daily #09/27 for pneumonia -10/26 SP vancomycin IV #5 COVID neg x2; F/u sp cx Trend resp status Monitor CBC, CMP D/w RN Thank you for this consult. [facility] will continue to follow. Subjective Allergies: Coded Allergies: PENICILLINS (Verified Allergy, Unknown, 10/25/19) tolerated Ceftriaxone Afebrile No Leukocytosis Objective Last 24 Hour Vital Signs Date Time Temp Pulse Resp B/P (MAP) Pulse Ox O2 Delivery O2 Flow Rate FiO2 10/31/19 09:54 64 143/42 10/31/19 09:12 94 Nasal Cannula 2.0 28 10/31/19 09:12 64 18 94 Nasal Cannula 2.0 28 10/31/19 08:18 96.9 58 22 143/42 (75) 10/31/19 04:00 97.1 54 24 102/55 (71) 10/31/19 04:00 59 10/31/19 00:00 97.0 55 24 123/54 (77) 10/31/19 00:00 59 10/30/19 21:00 Nasal Cannula 2.0 Nasal Cannula 2.0 10/30/19 20:00 53 10/30/19 20:00 97.0 55 24 123/54 (77) 99 10/30/19 16:00 57 10/30/19 16:00 96.9 58 20 135/48 (77) 100 10/30/19 12:00 58 10/30/19 12:00 96.6 53 18 123/47 (72) 100 Height (Feet): 5 Height (Inches): 8.00 Weight (Pounds): 200 Gen: NAD, On RA HEENT; NCAT, MMM, EOMI, No oral lesions Respiratory: Equal rise and fall, RRR Gastrointestinal: Soft ND Skin: No rash on exposed skin Laboratory Tests Test 10/30/19 16:41 10/31/19 01:16 10/31/19 07:30 POC Whole Blood Glucose Pending Pending White Blood Count 9.6 K/UL (4.8-10.8) Red Blood Count 2.60 M/UL (4.70-6.10) L Hemoglobin 7.9 G/DL (14.2-18.0) L Hematocrit 25.8 % (42.0-52.0) L Mean Corpuscular Volume 99 FL (80-99) Mean Corpuscular Hemoglobin 30.3 PG (27.0-31.0) Mean Corpuscular Hemoglobin Concent 30.5 G/DL (32.0-36.0) L Red Cell Distribution Width 15.7 % (11.6-14.8) H Platelet Count 203 K/UL (150-450) Mean Platelet Volume 7.6 FL (6.5-10.1) Neutrophils (%) (Auto) % (45.0-75.0) Lymphocytes (%) (Auto) % (20.0-45.0) Monocytes (%) (Auto) % (1.0-10.0) Eosinophils (%) (Auto) % (0.0-3.0) Basophils (%) (Auto) % (0.0-2.0) Neutrophils % (Manual) Pending Lymphocytes % (Manual) Pending Platelet Estimate Pending Platelet Morphology Pending Prothrombin Time 12.7 SEC (9.30-11.50) H Prothromb Time International Ratio 1.2 (0.9-1.1) H Activated Partial Thromboplast Time 40 SEC (23-33) H Sodium Level 128 MMOL/L (136-145) L Potassium Level 3.9 MMOL/L (3.5-5.1) Chloride Level 93 MMOL/L (98-107) L Carbon Dioxide Level 28 MMOL/L (21-32) Anion Gap 8 mmol/L (5-15) Blood Urea Nitrogen 82 mg/dL (7-18) H Creatinine 4.9 MG/DL (0.55-1.30) H Estimat Glomerular Filtration Rate 11.5 mL/min (>60) Glucose Level 189 MG/DL (74-106) H Uric Acid 4.5 MG/DL (2.6-7.2) Calcium Level 8.5 MG/DL (8.5-10.1) Phosphorus Level 7.4 MG/DL (2.5-4.9) H Magnesium Level 2.4 MG/DL (1.8-2.4) Total Bilirubin 0.2 MG/DL (0.2-1.0) Aspartate Amino Transf (AST/SGOT) 47 U/L (15-37) H Alanine Aminotransferase (ALT/SGPT) 32 U/L (12-78) Alkaline Phosphatase 137 U/L (46-116) H C-Reactive Protein, Quantitative 2.6 mg/dL (0.00-0.90) H Pro-B-Type Natriuretic Peptide 65729 pg/mL (0-125) H Total Protein 5.4 G/DL (6.4-8.2) L Albumin 2.5 G/DL (3.4-5.0) L Globulin 2.9 g/dL Albumin/Globulin Ratio 0.9 (1.0-2.7) L Current Medications Medications (Trade) Dose Ordered Sig/Cammy Route PRN Reason Start Time Stop Time Status Last Admin Dose Admin Acetaminophen (Tylenol) 650 mg Q6H PRN ORAL Pain Scale (3-5) 10/26/19 13:00 11/23/19 06:59 10/27/19 12:11 Amlodipine Besylate (Norvasc) 5 mg DAILY ORAL 10/29/19 09:00 11/25/19 08:59 10/31/19 09:54 Atorvastatin Calcium (Lipitor) 10 mg BEDTIME ORAL 10/26/19 21:00 01/21/20 20:59 10/30/19 20:59 Ceftriaxone Sodium 2 gm/ Dextrose 55 ml @ 110 mls/hr Q24H IVPB 10/27/19 12:00 10/31/19 11:59 10/30/19 12:58 Dextrose (Dextrose 50%) 25 ml Q30M PRN IV Hypoglycemia 10/26/19 13:15 01/20/20 21:44 Dextrose (Dextrose 50%) 50 ml Q30M PRN IV Hypoglycemia 10/26/19 13:15 01/20/20 21:44 Docusate Sodium (Colace) 100 mg TID ORAL 10/26/19 18:00 11/22/19 17:59 10/31/19 09:54 Epoetin William (Epoetin William-EPBX(NON ESRD)) 10,000 unit SUBQ 10/27/19 21:00 01/25/20 20:59 10/29/19 20:30 Gabapentin (Neurontin) 100 mg THREE TIMES A DAY ORAL 10/26/19 18:00 11/22/19 17:59 10/31/19 09:53 Haloperidol (Haldol) 5 mg Q12H PRN ORAL Agitation 10/26/19 12:57 12/10/19 12:56 10/27/19 22:20 Haloperidol Lactate (Haldol) 5 mg Q6H PRN IM Agitation 10/26/19 12:57 12/10/19 12:56 10/28/19 21:06 Hydralazine HCl (Apresoline) 10 mg Q4H PRN IV For High Blood Pressure 10/26/19 13:07 01/24/20 13:06 10/26/19 17:49 Levothyroxine Sodium (Synthroid) 50 mcg DAILY IV 10/27/19 09:00 11/23/19 13:59 10/31/19 09:53 Pantoprazole (Protonix) 40 mg EVERY 12 HOURS IVP 10/26/19 21:00 11/22/19 08:59 10/31/19 09:53 Rivaroxaban (Xarelto) 15 mg QPM ORAL 10/27/19 16:30 01/25/20 16:29 10/30/19 16:43 Sennosides (Senokot) 8.6 mg HSPRN PRN ORAL Constipation 10/26/19 12:58 11/25/19 12:57 10/27/19 16:20 Sevelamer Carbonate (Renvela) 1,600 mg THREE TIMES A DAY ORAL 10/26/19 18:00 01/21/20 17:59 10/31/19 09:53 Sodium Bicarbonate 50 ml/ Dextrose 1,050 ml @ 50 mls/hr Q21H IV 10/27/19 05:00 11/26/19 04:59 10/30/19 17:19 Vitamin B Complex/ Vit C/Folic Acid (Nephrovite) 1 tab DAILY ORAL 10/27/19 09:00 11/22/19 08:59 10/31/19 09:53 John Perales MD Oct 31, 2019 10:01
[2019-10-31] MEDS ORDERED: Lidocaine 1% 10mg/ml/EPI 0.01mg/ml 30ml INJ SCH (11:00)
--- NOTE | 2019-10-31 11:39 | Nephrology Progress Note ---
Assessment/Plan Problem List: (1) Renal failure (ARF), acute on chronic (2) Metabolic acidosis (3) Electrolyte imbalance Assessment: Hyponatremia and hyperkalemia (4) Anemia (5) CHF (congestive heart failure) Assessment 79-year-old male is admitted for hypoglycemia Patient has renal failure which appears to be acute on chronic Hyperkalemia Hyponatremia CHF, pleural effusion, pneumonia Anemia Metabolic acidosis Hypothyroidism Plan October 30: Serum creatinine rising. Patient due to have a temporary dialysis catheter and due for dialysis today. Will continue to follow-up renal parameters. Patient remains full code. October 29: Serum creatinine rising. Serum creatinine 4.5 today. Calculated creatinine clearance is 12. Kidney ultrasound ordered yesterday results were reviewed. Patient appears to have acute renal failure due to underlying sepsis and nephrotoxic medications. Patient requires dialysis treatment. Ordered to obtain consent from the responsible republican. Will communicate with PMD and or he is coverage. October 28: Serum creatinine higher to 4.2 today. Blood pressure appears more stable. In view of worsening renal failure, will order stat kidney ultrasound and urine studies. Continue to monitor renal parameters. Patient is full code. Worsening renal parameters may lead to hemodialysis treatment. October 27: Patient pulled out the Lyles catheter. Serum creatinine went up to 3.8. Blood pressure somewhat low. Heart rate in 50s. Will discontinue Coreg. We will continue to monitor renal parameters. October 26: Serum creatinine lower again today. Will abort the dialysis plan. Continue per consultants. Continue to monitor renal parameters. Medication list reviewed. October 25: Clinically improving. Serum creatinine lower. Urine output increased. No dialysis planned at this time. Continue per consultants. October 24: Patient's respiratory status somewhat improved. Serum creatinine down to 3.9. Urinary output somewhat increased. Will hold placement of dialysis catheter at this time. Blood pressure medication adjusted. Continue to monitor renal parameters. Per orders. October 23: Patient remains on BiPAP. More Kayexalate ordered. Will consider hemodialysis to correct fluid overload and hyperkalemia and acidosis. Will discuss with PMD. Meanwhile IV Synthroid started. Discussed with BENJAMIN Aguirre Patient already transfused 1 unit for severe anemia previously Will initiate Epogen 10,000 units subcutaneously 1 dose of IV iron Venofer 200 g IV Kayexalate for hyperkalemia as needed 2D echocardiogram ordered, ejection fraction is reported normal Kidney ultrasound ordered: Kidneys: Right kidney measures 9.1 cm in length. No hydronephrosis or stone. Left kidney not visualized due to patient's body habitus. Avoid nephrotoxic's Monitor renal parameters Will hold insulin and hypoglycemic agents until hypoglycemia is reasonably resolved Subjective ROS Limited/Unobtainable: No Constitutional: Reports: malaise, weakness Objective Objective Last 24 Hour Vital Signs Date Time Temp Pulse Resp B/P (MAP) Pulse Ox O2 Delivery O2 Flow Rate FiO2 10/31/19 09:54 64 143/42 10/31/19 09:12 94 Nasal Cannula 2.0 28 10/31/19 09:12 64 18 94 Nasal Cannula 2.0 28 10/31/19 08:18 96.9 58 22 143/42 (75) 10/31/19 04:00 97.1 54 24 102/55 (71) 10/31/19 04:00 59 10/31/19 00:00 97.0 55 24 123/54 (77) 10/31/19 00:00 59 10/30/19 21:00 Nasal Cannula 2.0 Nasal Cannula 2.0 10/30/19 20:00 53 10/30/19 20:00 97.0 55 24 123/54 (77) 99 10/30/19 16:00 57 10/30/19 16:00 96.9 58 20 135/48 (77) 100 10/30/19 12:00 58 10/30/19 12:00 96.6 53 18 123/47 (72) 100 Intake and Output 10/30/19 10/31/19 19:00 07:00 Intake Total 720 ml 150 ml Output Total 100 ml Balance 620 ml 150 ml Intake Oral 720 ml 150 ml Output Urine Total 100 ml # Bowel Movements 1 Laboratory Tests 10/30/19 16:41: POC Whole Blood Glucose [Pending] 10/31/19 01:16: POC Whole Blood Glucose [Pending] 10/31/19 07:30: White Blood Count 9.6, Red Blood Count 2.60L, Hemoglobin 7.9L, Hematocrit 25.8L , Mean Corpuscular Volume 99, Mean Corpuscular Hemoglobin 30.3, Mean Corpuscular Hemoglobin Concent 30.5L, Red Cell Distribution Width 15.7H, Platelet Count 203, Mean Platelet Volume 7.6, Neutrophils (%) (Auto) , Lymphocytes (%) (Auto) , Monocytes (%) (Auto) , Eosinophils (%) (Auto) , Basophils (%) (Auto) , Differential Total Cells Counted 100, Neutrophils % ( Manual) 89H, Lymphocytes % (Manual) 7L, Monocytes % (Manual) 3, Eosinophils % ( Manual) 1, Basophils % (Manual) 0, Band Neutrophils 0, Platelet Estimate Adequate, Platelet Morphology Normal, Polychromasia 1+, Hypochromasia 1+, Anisocytosis 1+, Macrocytosis 1+, Tear Drop Cells , Prothrombin Time 12.7H, Prothromb Time International Ratio 1.2H, Activated Partial Thromboplast Time 40H , Sodium Level 128L, Potassium Level 3.9, Chloride Level 93L, Carbon Dioxide Level 28, Anion Gap 8, Blood Urea Nitrogen 82H, Creatinine 4.9H, Estimat Glomerular Filtration Rate 11.5, Glucose Level 189H, Uric Acid 4.5, Calcium Level 8.5, Phosphorus Level 7.4H, Magnesium Level 2.4, Total Bilirubin 0.2, Aspartate Amino Transf (AST/SGOT) 47H, Alanine Aminotransferase (ALT/SGPT) 32, Alkaline Phosphatase 137H, C-Reactive Protein, Quantitative 2.6H, Pro-B-Type Natriuretic Peptide 20622E, Total Protein 5.4L, Albumin 2.5L, Globulin 2.9, Albumin/Globulin Ratio 0.9L Height (Feet): 5 Height (Inches): 8.00 Weight (Pounds): 200 General Appearance: no apparent distress, lethargic Cardiovascular: normal rate Respiratory/Chest: decreased breath sounds Abdomen: distended Objective No change Naveed Vanegas MD Oct 31, 2019 11:39
[2019-10-31 12:00] VITALS: BP 131/45
--- NOTE | 2019-10-31 13:12 | Surgery Progress Note ---
Surgery Progress Note Subjective Additional Comments discussed with nephrology neesd HD needs access Objective Last 24 Hour Vital Signs Date Time Temp Pulse Resp B/P (MAP) Pulse Ox O2 Delivery O2 Flow Rate FiO2 10/31/19 09:54 64 143/42 10/31/19 09:12 94 Nasal Cannula 2.0 28 10/31/19 09:12 64 18 94 Nasal Cannula 2.0 28 10/31/19 08:18 96.9 58 22 143/42 (75) 10/31/19 08:00 59 10/31/19 04:00 97.1 54 24 102/55 (71) 10/31/19 04:00 59 10/31/19 00:00 97.0 55 24 123/54 (77) 10/31/19 00:00 59 10/30/19 21:00 Nasal Cannula 2.0 Nasal Cannula 2.0 10/30/19 20:00 53 10/30/19 20:00 97.0 55 24 123/54 (77) 99 10/30/19 16:00 57 10/30/19 16:00 96.9 58 20 135/48 (77) 100 I&O Intake and Output 10/30/19 10/31/19 19:00 07:00 Intake Total 720 ml 150 ml Output Total 100 ml Balance 620 ml 150 ml Intake Oral 720 ml 150 ml Output Urine Total 100 ml # Bowel Movements 1 Dressing: other Wound: other Drains: other Cardiovascular: RSR Respiratory: decreased breath sounds Abdomen: soft, non-tender, present bowel sounds Extremities: edema, no tenderness, no cyanosis Laboratory Tests Test 10/30/19 16:41 10/31/19 01:16 10/31/19 07:30 10/31/19 12:29 POC Whole Blood Glucose Pending Pending 196 MG/DL (74-106) H White Blood Count 9.6 K/UL (4.8-10.8) Red Blood Count 2.60 M/UL (4.70-6.10) L Hemoglobin 7.9 G/DL (14.2-18.0) L Hematocrit 25.8 % (42.0-52.0) L Mean Corpuscular Volume 99 FL (80-99) Mean Corpuscular Hemoglobin 30.3 PG (27.0-31.0) Mean Corpuscular Hemoglobin Concent 30.5 G/DL (32.0-36.0) L Red Cell Distribution Width 15.7 % (11.6-14.8) H Platelet Count 203 K/UL (150-450) Mean Platelet Volume 7.6 FL (6.5-10.1) Neutrophils (%) (Auto) % (45.0-75.0) Lymphocytes (%) (Auto) % (20.0-45.0) Monocytes (%) (Auto) % (1.0-10.0) Eosinophils (%) (Auto) % (0.0-3.0) Basophils (%) (Auto) % (0.0-2.0) Differential Total Cells Counted 100 Neutrophils % (Manual) 89 % (45-75) H Lymphocytes % (Manual) 7 % (20-45) L Monocytes % (Manual) 3 % (1-10) Eosinophils % (Manual) 1 % (0-3) Basophils % (Manual) 0 % (0-2) Band Neutrophils 0 % (0-8) Platelet Estimate Adequate Platelet Morphology Normal Polychromasia 1+ Hypochromasia 1+ Anisocytosis 1+ Macrocytosis 1+ Tear Drop Cells Prothrombin Time 12.7 SEC (9.30-11.50) H Prothromb Time International Ratio 1.2 (0.9-1.1) H Activated Partial Thromboplast Time 40 SEC (23-33) H Sodium Level 128 MMOL/L (136-145) L Potassium Level 3.9 MMOL/L (3.5-5.1) Chloride Level 93 MMOL/L (98-107) L Carbon Dioxide Level 28 MMOL/L (21-32) Anion Gap 8 mmol/L (5-15) Blood Urea Nitrogen 82 mg/dL (7-18) H Creatinine 4.9 MG/DL (0.55-1.30) H Estimat Glomerular Filtration Rate 11.5 mL/min (>60) Glucose Level 189 MG/DL (74-106) H Uric Acid 4.5 MG/DL (2.6-7.2) Calcium Level 8.5 MG/DL (8.5-10.1) Phosphorus Level 7.4 MG/DL (2.5-4.9) H Magnesium Level 2.4 MG/DL (1.8-2.4) Total Bilirubin 0.2 MG/DL (0.2-1.0) Aspartate Amino Transf (AST/SGOT) 47 U/L (15-37) H Alanine Aminotransferase (ALT/SGPT) 32 U/L (12-78) Alkaline Phosphatase 137 U/L (46-116) H C-Reactive Protein, Quantitative 2.6 mg/dL (0.00-0.90) H Pro-B-Type Natriuretic Peptide 41206 pg/mL (0-125) H Total Protein 5.4 G/DL (6.4-8.2) L Albumin 2.5 G/DL (3.4-5.0) L Globulin 2.9 g/dL Albumin/Globulin Ratio 0.9 (1.0-2.7) L Plan Problems: (1) Hypercarbia (2) Pleural effusion (3) Chronic renal failure (4) Anemia (5) CHF (congestive heart failure) (6) Bacteremia (7) Cellulitis Assessment & Plan: penile swelling improved no active bleeding reyes okay will monitor (8) Hypoglycemia (9) Hyponatremia (10) ATN (acute tubular necrosis) (11) Metabolic acidosis (12) Pneumonia (13) Cellulitis of foot Assessment & Plan: Pt presented on admission with Bilat TMA. Pressure injuries both heels. Stable dry necrosis note to Plantar /lateral L TMA. L Heel is boggy with non- Blanchable erythema. . R Heel Boggy with Non-Blanchable erythema.Haemosiderin with Xerosis skin noted to R and L lower ext. Darker skin tone without erythema , induration or fluctuance Medial L Malleolus. Darker skin tone without erythema or induration noted to sacrum. Tx.Plan: Apply Moisture Barrier Paste to Sacrum. Cover with Optifoam drsg.Change every 3 days and prn. Apply Betadine to eschar plantar/lateral L TMA . Cover with Optifoam drsg. Change every 3 days and prn. Apply Cavilon Skin Barrier to both heels and Malleoli. Cover each site with Optifoam drsg. Change every 7days and prn. Reposition at least every 2hours or as tolerated. Off load heels with pillow.Hx prior amputation prior MRI and plain films reviewed wounds stable and local care being provided no abscess noted cont with dressings elevate heels with pillow turn q2h off load pressure air mattress will follow with recs thank you (14) Osteomyelitis (15) History of hypertension (16) Renal failure (ARF), acute on chronic (17) Acute encephalopathy (18) Diabetes mellitus (19) Hypertension (20) Cholelithiasis Assessment & Plan: US reviewed exam benign asymptomatic cholelithiasis alk phos mild elevated lfts improved trend labs no acute surgical intervention planned Liver: Liver measures 14.8 cm. No intrahepatic bile duct dilation. Gallbladder: Small stone in the gallbladder. No significant gallbladder wall thickening or pericholecystic fluid. Negative sonographic Bianchi's sign. Common bile duct: Normal common bile duct measuring 4.5 mm. No stones. No dilation. Pancreas: Pancreas is not visualized due to overlying bowel gas. Kidneys: Right kidney measures 9.1 cm in length. No hydronephrosis or stone. Left kidney not visualized due to patient's body habitus. Spleen: Spleen measures 9.4 cm. No focal lesion. Aorta: Visualized portions of the aorta are grossly unremarkable. The mid and distal portions are obscured by bowel gas. Inferior vena cava: Unremarkable. Free fluid: No ascites. Tubes, lines and devices: Reyes catheter in a decompressed bladder. IMPRESSION: Small stone in the gallbladder. No significant gallbladder wall thickening or pericholecystic fluid. Negative sonographic Bianchi's sign. Mariusz Diehl Oct 31, 2019 13:12
--- NOTE | 2019-10-31 13:14 | Operative Note - PDOC ---
Operative Note Operative Note Date of Operation/Procedure: Oct 31, 2019 Pre-op Diagnosis: Renal insufficiency requiring temporary hemodialysis potentially long-term Procedure: Right femoral temporary hemodialysis catheter insertion Post-op Diagnosis: same as pre-op Surgeon: Mariusz Diehl MD Anesthesia: local Specimen: none Complications: none Condition: stable Estimated Blood Loss: minimal Drains: none Implant(s) used?: No Indications for Procedure 79-year-old male currently admitted [facility] under medical management identified to have renal insufficiency worsening and plan for hemodialysis per air twist operator. Patient does not have dialysis access currently needs temporary hemodialysis access. Consent obtained procedure performed at bedside Description of Procedure Patient was made comfortable the bedside. The right groin was prepped and draped in the standard surgical fashion. Anatomic landmarks identified. Local anesthetic stick with lidocaine 1% with epinephrine infiltrated. Finder needle used in the right femoral vein cannulated on first stick without complication. Guidewire placed over needle needle removed. small skin incision made around the guidewire and dilators were used. A temporary hemodialysis catheter was inserted over guidewire and guidewire was removed and discarded. Line was sutured in place all ports were functional good venous flow identified line ready for hemodialysis patient on procedure well. Mariusz Diehl Oct 31, 2019 13:14
[2019-10-31] MEDS: Sodium Bicarbonate 50 ML in D5W 1000ml 1,000 ML IV SCH (14:37)
[2019-10-31] MEDS ORDERED: cefTRIAXone 2 GM in D5W 55 ML IVPB SCH (15:00)
[2019-10-31 16:00] VITALS: BP 119/43
[2019-10-31] MEDS: Xarelto 15mg tab ORAL SCH (16:30)
[2019-10-31] MEDS: Renvela 800mg Pkt ORAL SCH (17:48)
[2019-10-31] MEDS ORDERED: Solu-MEDROL 40mg Inj IVP SCH (18:30)
[2019-10-31 20:00] VITALS: BP 143/80
[2019-11-01] VITALS: BP 143/50
[2019-11-01 04:00] VITALS: BP 140/54
[2019-11-01 07:05] LABS: ANION GAP 3 mmol/L (5-15); BLOOD UREA NITROGEN 51 mg/dL (7-18); CARBON DIOXIDE 33 MMOL/L (21-32); CHLORIDE 98 MMOL/L (98-107); CREATININE 3.7 MG/DL (0.55-1.30); POTASSIUM 3.8 MMOL/L (3.5-5.1); SODIUM 134 MMOL/L (136-145)
[2019-11-01 07:20] LABS: HEMATOCRIT 30.1 % (42.0-52.0); HEMOGLOBIN 9.4 G/DL (14.2-18.0); MEAN CORPUSCULAR VOLUME 99 FL (80-99); PLATELET COUNT 198 K/UL (150-450); RED BLOOD COUNT 3.05 M/UL (4.70-6.10); RED CELL DISTRIBUTION WIDTH 16.1 % (11.6-14.8); WHITE BLOOD COUNT 10.6 K/UL (4.8-10.8)
--- NOTE | 2019-11-01 07:30 | General Progress Note ---
Assessment/Plan Problem List: (1) Hypertension ICD Codes: I10 - Essential (primary) hypertension SNOMED: 82733340 (2) Diabetes mellitus ICD Codes: E11.9 - Type 2 diabetes mellitus without complications SNOMED: 27012618 (3) Anemia ICD Codes: D64.9 - Anemia, unspecified SNOMED: 525798847 (4) Cholelithiasis ICD Codes: K80.20 - Calculus of gallbladder without cholecystitis without obstruction SNOMED: 459875808 (5) CHF (congestive heart failure) ICD Codes: I50.9 - Heart failure, unspecified SNOMED: 09210375 Assessment/Plan: patient on Xerallto stool ob positive but no overt GIB stable H&H s/p one unit PRBC s/p HD cath placement and HD fu cbc repeat stool ob ppi bid GI procedures when patient is more stable bowel regimen repeat swallow eval management of hyponatremia per nephrology Subjective ROS Limited/Unobtainable: No Allergies: Coded Allergies: PENICILLINS (Verified Allergy, Unknown, 10/25/19) tolerated Ceftriaxone Objective Last 24 Hour Vital Signs Date Time Temp Pulse Resp B/P (MAP) Pulse Ox O2 Delivery O2 Flow Rate FiO2 11/01/19 04:00 78 11/01/19 04:00 98.8 74 18 140/54 (82) 96 11/01/19 00:00 98.8 72 22 143/50 (81) 96 11/01/19 00:00 74 10/31/19 21:00 Nasal Cannula 2.0 Nasal Cannula 2.0 10/31/19 20:00 98.9 71 22 143/80 (101) 96 10/31/19 20:00 70 10/31/19 16:00 95.4 56 22 119/43 (68) 100 10/31/19 15:27 58 10/31/19 12:00 96.8 56 20 131/45 (73) 100 10/31/19 12:00 52 10/31/19 09:54 64 143/42 10/31/19 09:12 94 Nasal Cannula 2.0 28 10/31/19 09:12 64 18 94 Nasal Cannula 2.0 28 10/31/19 09:00 Nasal Cannula 2.0 Nasal Cannula 2.0 10/31/19 08:18 96.9 58 22 143/42 (75) 8/9/20 08:00 59 Intake and Output 10/31/19 11/01/19 19:00 07:00 Output Total 2100 ml 300 ml Balance -2100 ml -300 ml Output Urine Total 100 ml 300 ml Hemodialysis UF 2000 ml # Voids 3 Laboratory Tests 10/31/19 07:30: White Blood Count 9.6, Red Blood Count 2.60L, Hemoglobin 7.9L, Hematocrit 25.8L , Mean Corpuscular Volume 99, Mean Corpuscular Hemoglobin 30.3, Mean Corpuscular Hemoglobin Concent 30.5L, Red Cell Distribution Width 15.7H, Platelet Count 203, Mean Platelet Volume 7.6, Neutrophils (%) (Auto) , Lymphocytes (%) (Auto) , Monocytes (%) (Auto) , Eosinophils (%) (Auto) , Basophils (%) (Auto) , Differential Total Cells Counted 100, Neutrophils % ( Manual) 89H, Lymphocytes % (Manual) 7L, Monocytes % (Manual) 3, Eosinophils % ( Manual) 1, Basophils % (Manual) 0, Band Neutrophils 0, Platelet Estimate Adequate, Platelet Morphology Normal, Polychromasia 1+, Hypochromasia 1+, Anisocytosis 1+, Macrocytosis 1+, Tear Drop Cells , Prothrombin Time 12.7H, Prothromb Time International Ratio 1.2H, Activated Partial Thromboplast Time 40H , Sodium Level 128L, Potassium Level 3.9, Chloride Level 93L, Carbon Dioxide Level 28, Anion Gap 8, Blood Urea Nitrogen 82H, Creatinine 4.9H, Estimat Glomerular Filtration Rate 11.5, Glucose Level 189H, Uric Acid 4.5, Calcium Level 8.5, Phosphorus Level 7.4H, Magnesium Level 2.4, Total Bilirubin 0.2, Aspartate Amino Transf (AST/SGOT) 47H, Alanine Aminotransferase (ALT/SGPT) 32, Alkaline Phosphatase 137H, C-Reactive Protein, Quantitative 2.6H, Pro-B-Type Natriuretic Peptide 73060C, Total Protein 5.4L, Albumin 2.5L, Globulin 2.9, Albumin/Globulin Ratio 0.9L, Hepatitis B Surface Antigen [Pending] 10/31/19 12:29: POC Whole Blood Glucose 196H 10/31/19 22:03: POC Whole Blood Glucose [Pending] 11/01/19 06:20: POC Whole Blood Glucose 203H 11/01/19 06:35: White Blood Count 10.6, Red Blood Count 3.05L, Hemoglobin 9.4L, Hematocrit 30.1L , Mean Corpuscular Volume 99, Mean Corpuscular Hemoglobin 30.8, Mean Corpuscular Hemoglobin Concent 31.1L, Red Cell Distribution Width 16.1H, Platelet Count 198, Mean Platelet Volume 8.3, Neutrophils (%) (Auto) , Lymphocytes (%) (Auto) , Monocytes (%) (Auto) , Eosinophils (%) (Auto) , Basophils (%) (Auto) , Neutrophils % (Manual) [Pending], Lymphocytes % (Manual) [Pending], Platelet Estimate [Pending], Platelet Morphology [Pending], Sodium Level 134L, Potassium Level 3.8, Chloride Level 98, Carbon Dioxide Level 33H, Anion Gap 3L, Blood Urea Nitrogen 51H, Creatinine 3.7H, Estimat Glomerular Filtration Rate 15.8, Glucose Level 209H, Calcium Level 9.0 Height (Feet): 5 Height (Inches): 8.00 Weight (Pounds): 198 General Appearance: lethargic EENT: normal ENT inspection Neck: supple Cardiovascular: normal rate Respiratory/Chest: decreased breath sounds Abdomen: normal bowel sounds, non tender, soft Lawrence Humphreys MD Nov 01, 2019 07:30
[2019-11-01 08:00] VITALS: BP 165/58
[2019-11-01 09:03] LABS: ALANINE AMINOTRANSFERASE 31 U/L (12-78); ALBUMIN 2.5 G/DL (3.4-5.0); ALKALINE PHOSPHATASE 122 U/L (46-116); ASPARTATE AMINO TRANSFERASE 44 U/L (15-37); BILIRUBIN,DIRECT < 0.1 MG/DL (0.0-0.3); BILIRUBIN,TOTAL 0.1 MG/DL (0.2-1.0); PHOSPHORUS 6.1 MG/DL (2.5-4.9)
[2019-11-01] MEDS: Nephrovite tab (Rena-Vite) ORAL SCH (09:05)
[2019-11-01] MEDS: Pantoprazole Inj IVP SCH ×2 (09:05→21:50)
[2019-11-01] MEDS: Renvela 800mg Pkt ORAL SCH ×4 (09:05→16:56)
[2019-11-01] MEDS: Lactulose 10gm/15ml UDC ORAL SCH ×2 (09:05→16:56)
[2019-11-01] MEDS: Docusate 100mg cap ORAL SCH ×3 (09:05→16:56)
--- NOTE | 2019-11-01 09:43 | Pulmonology Progress Note ---
Reema Hanna [employer] 11/01/19 0943: Subjective ROS Limited/Unobtainable: No Allergies: Coded Allergies: PENICILLINS (Verified Allergy, Unknown, 10/25/19) tolerated Ceftriaxone Subjective episode of wheezing 10/29 late afternoon reported by nursing, received 1 dose of Solumedrol, compelted HD as well that afternoon on O2 via NC no signs of resp distress denies CP, SOB, cough remans afebrile, no leukocytosis on tele Objective Last 24 Hour Vital Signs Date Time Temp Pulse Resp B/P (MAP) Pulse Ox O2 Delivery O2 Flow Rate FiO2 11/01/19 09:05 81 165/58 11/01/19 08:12 Nasal Cannula 2.0 Nasal Cannula 2.0 11/01/19 08:00 97.9 79 20 165/58 (93) 98 11/01/19 08:00 81 11/01/19 04:00 78 11/01/19 04:00 98.8 74 18 140/54 (82) 96 11/01/19 00:00 98.8 72 22 143/50 (81) 96 11/01/19 00:00 74 10/31/19 21:00 Nasal Cannula 2.0 Nasal Cannula 2.0 10/31/19 20:00 98.9 71 22 143/80 (101) 96 10/31/19 20:00 70 10/31/19 16:00 95.4 56 22 119/43 (68) 100 10/31/19 15:27 58 10/31/19 12:00 96.8 56 20 131/45 (73) 100 10/31/19 12:00 52 10/31/19 09:54 64 143/42 Intake and Output 10/31/19 11/01/19 19:00 07:00 Output Total 2100 ml 300 ml Balance -2100 ml -300 ml Output Urine Total 100 ml 300 ml Hemodialysis UF 2000 ml # Voids 3 Objective General Appearance: no apparent distress, Kyrgyz speaking confused male, Lines, tubes and drains: peripheral HEENT: normocephalic, atraumatic, anicteric, mucous membranes moist, O2 via NC Respiratory/Chest: few scattered crackles, no exp wheezing, Cardiovascular/Chest: normal rate, regular rhythm Abdomen: normal bowel sounds, non tender, soft : Lyles urine clearing Extremities: partially amputated BL foot Skin Exam: warm/dry Neurologic: abnormal gait, alert, oriented , confused Musculoskeletal: atrophy - BLE Laboratory Tests 10/31/19 12:29: POC Whole Blood Glucose 196H 10/31/19 22:03: POC Whole Blood Glucose [Pending] 11/01/19 06:20: POC Whole Blood Glucose 203H 11/01/19 06:35: White Blood Count 10.6, Red Blood Count 3.05L, Hemoglobin 9.4L, Hematocrit 30.1L , Mean Corpuscular Volume 99, Mean Corpuscular Hemoglobin 30.8, Mean Corpuscular Hemoglobin Concent 31.1L, Red Cell Distribution Width 16.1H, Platelet Count 198, Mean Platelet Volume 8.3, Neutrophils (%) (Auto) , Lymphocytes (%) (Auto) , Monocytes (%) (Auto) , Eosinophils (%) (Auto) , Basophils (%) (Auto) , Differential Total Cells Counted 100, Neutrophils % ( Manual) 95H, Lymphocytes % (Manual) 4L, Monocytes % (Manual) 1, Eosinophils % ( Manual) 0, Basophils % (Manual) 0, Band Neutrophils 0, Platelet Estimate Adequate, Platelet Morphology Normal, Polychromasia 1+, Hypochromasia 1+, Anisocytosis 1+, Macrocytosis 2+, Sodium Level 134L, Potassium Level 3.8, Chloride Level 98, Carbon Dioxide Level 33H, Anion Gap 3L, Blood Urea Nitrogen 51H, Creatinine 3.7H, Estimat Glomerular Filtration Rate 15.8, Glucose Level 209H, Calcium Level 9.0, Phosphorus Level 6.1H, Magnesium Level 2.4, Total Bilirubin 0.1L, Direct Bilirubin < 0.1, Aspartate Amino Transf (AST/SGOT) 44H, Alanine Aminotransferase (ALT/SGPT) 31, Alkaline Phosphatase 122H, Total Protein 6.4, Albumin 2.5L Current Medications Medications (Trade) Dose Ordered Sig/Cammy Route PRN Reason Start Time Stop Time Status Last Admin Dose Admin Acetaminophen (Tylenol) 650 mg Q6H PRN ORAL Pain Scale (3-5) 10/26/19 13:00 11/23/19 06:59 10/27/19 12:11 Amlodipine Besylate (Norvasc) 5 mg DAILY ORAL 10/29/19 09:00 11/25/19 08:59 11/01/19 09:05 Atorvastatin Calcium (Lipitor) 10 mg BEDTIME ORAL 10/26/19 21:00 01/21/20 20:59 10/31/19 22:02 Dextrose (Dextrose 50%) 25 ml Q30M PRN IV Hypoglycemia 10/26/19 13:15 01/20/20 21:44 Dextrose (Dextrose 50%) 50 ml Q30M PRN IV Hypoglycemia 10/26/19 13:15 01/20/20 21:44 Docusate Sodium (Colace) 100 mg TID ORAL 10/26/19 18:00 11/22/19 17:59 11/01/19 09:05 Epoetin William (Epoetin William-EPBX(NON ESRD)) 10,000 unit FRI- SUBQ 10/27/19 21:00 01/25/20 20:59 10/29/19 20:30 Gabapentin (Neurontin) 100 mg THREE TIMES A DAY ORAL 10/26/19 18:00 11/22/19 17:59 11/01/19 09:05 Haloperidol (Haldol) 5 mg Q12H PRN ORAL Agitation 10/26/19 12:57 12/10/19 12:56 10/27/19 22:20 Haloperidol Lactate (Haldol) 5 mg Q6H PRN IM Agitation 10/26/19 12:57 12/10/19 12:56 10/28/19 21:06 Hydralazine HCl (Apresoline) 10 mg Q4H PRN IV For High Blood Pressure 10/26/19 13:07 01/24/20 13:06 10/26/19 17:49 Lactulose (Cephulac) 10 gm BID ORAL 11/01/19 09:00 12/01/19 08:59 11/01/19 09:05 Levothyroxine Sodium (Synthroid) 50 mcg DAILY IV 10/27/19 09:00 11/23/19 13:59 11/01/19 09:08 Pantoprazole (Protonix) 40 mg EVERY 12 HOURS IVP 10/26/19 21:00 11/22/19 08:59 11/01/19 09:05 Polyethylene Glycol (Miralax) 17 gm BEDTIME ORAL 11/01/19 21:00 12/01/19 20:59 Rivaroxaban (Xarelto) 15 mg QPM ORAL 10/27/19 16:30 01/25/20 16:29 10/30/19 16:43 Sennosides (Senokot) 8.6 mg HSPRN PRN ORAL Constipation 10/26/19 12:58 11/25/19 12:57 10/27/19 16:20 Sevelamer Carbonate (Renvela) 1,600 mg THREE TIMES A DAY ORAL 10/31/19 18:00 01/21/20 17:59 11/01/19 09:05 Sodium Bicarbonate 50 ml/ Dextrose 1,050 ml @ 50 mls/hr Q21H IV 10/27/19 05:00 11/26/19 04:59 10/31/19 14:37 Vitamin B Complex/ Vit C/Folic Acid (Nephrovite) 1 tab DAILY ORAL 10/27/19 09:00 11/22/19 08:59 11/01/19 09:05 Assessment/Plan Assessment/Plan ASSESSMENT Acute hypoxemic hypercapnic respiratory failure requiring BiPAP -resolved Acute metabolic encephalopathy likely due to hypoglycemia Diabetes mellitus with initial hypoglycemia Probably pneumonia Aspiration risk Acute kidney injury on chronic kidney disease Severe anemia requiring blood transfusion Metabolic acidosis Electrolyte imbalance :hyponatremia, hyperkalemia HTN with HTN urgency Dysphagia Hematuria 2 to pt pulled off his Lyles catheter Possibly [employer] tele off BiPAP now on O2 via NC hypercapnia resolved titrate FiO2 to keep sat > 90% pulm toilet 10/21 and 10/24 rapid COVID NGT, CXR 10/23 -> 1. Small layering right pleural effusion, not significantly changed. The previously noted small left pleural effusion is not as evident. 2. Prominent lung markings and haziness, right greater left, which may be related to pulmonary vascular congestion versus pneumonitis. This is not significantly changed. 3. Subsegmental atelectasis versus infiltrate in the medial left lung base, also not significantly changed. BiPAP prn abx as per ID recs -> Ceftriaxone , completed 10/30 ; s/p Vanco BCX 10/21 NGTD UCX NGT SCX if able CXR 10/25 -> stable , no significant change from before [place] Duplex BLE 10/25 -> NGT fup with CXR 10/30 - Mild central vascular congestion, interstitial thickening, slightly improved. Small bilateral pleural effusions have improved. Continued retrocardiac opacification. episode of wheezing per nursing 10/30 afternoon-one dose of Solemedrol given s/p HD 10/30 currently no wheezing will fup with CXR recommend sleep study as OP ECHO with pEF 55-60% on chronic a/c with Xarelto ?unclear reason monitor volumes swallow eval with aspiration risk diet texture as per ST recs with strict asp precautions and assistance with meals gentle IV dextrose with bicarb, monitor acid base status , HgA1c -6.1 hold oral anti-glycemic SSI prn ; recommend sensitive SSI AMS was most likely due to episode of hypoglycemia CT head NGT for acute ICP renal US atrophic kidneys, no hydro avoid nephrotoxic s/p Kayexalate and sodium bicarb gentle IVF f/up with nephro recs BP management with CCB and Hydralazine prn for BP spikes monitor HH with goal to keep Hgb above 7 stool OB anemia w/up noted , heme on board s/p 1 dose of Venofer on EPO hematuria resolved, Hgb at baseline GI prophayxlis supportive care thanks for a consult! case discussed and evaluated by supervising physician Jonathon Pabon MD 11/01/19 1329: Subjective Allergies: Coded Allergies: PENICILLINS (Verified Allergy, Unknown, 10/25/19) tolerated Ceftriaxone Assessment/Plan Assessment/Plan Patient seen and examined with [employer]. Agree with above A&P as it reflects our joint deliberations. Reema Hanna [employer] Nov 01, 2019 09:43 Jonathon Pabon MD Nov 01, 2019 13:29
--- NOTE | 2019-11-01 09:55 | Infectious Diseases Prog Note ---
Assessment/Plan 79yo M from SNF who p/w hypoglycemia and resp failure: Acute hypoxic respiratory failure, on BiPAP> now on 2l NC> RA > 2L NC Rapid COVID neg x2 (10/21, 10/24) Pneumonia on CXR Volume overload 10/30 CXR: Slightly improved 10/25 CXR: Bilateral alveolar densities are unchanged 10/24 Sp cx normal resp demario (prelim) 10/23 CXR: 1. Small layering right pleural effusion, not significantly changed. The previously noted small left pleural effusion is not as evident.Prominent lung markings and haziness, right greater left, which may be related to pulmonary vascular congestion versus pneumonitis. This is not significantly changed.. Subsegmental atelectasis versus infiltrate in the medial left lung base, also not significantly changed. 10/21 CXR: 1. Small bilateral pleural effusions. Bibasilar atelectasis versus pneumonia. 2. Prominent lung markings and hazy opacities in right greater than left lungs may represent artifact versus pulmonary vasculature congestion and edema versus infectious/inflammatory process. Afebrile No leukocytosis Anemia to 6.8, improved UA neg, UCx neg R/o bacteremia 10/21 BCx NTD ALEXIS on CKD, worsening Plan: Stop CTX, s/p #/7 for pna 10/26 SP vancomycin IV #5 F/u HBsAg from 10/30 COVID neg x2 Trend resp status Monitor CBC, CMP D/w RN Thank you for this consult. [facility] will continue to follow. Subjective Allergies: Coded Allergies: PENICILLINS (Verified Allergy, Unknown, 10/25/19) tolerated Ceftriaxone AF WBC 10 Not interactive NAD Objective Last 24 Hour Vital Signs Date Time Temp Pulse Resp B/P (MAP) Pulse Ox O2 Delivery O2 Flow Rate FiO2 11/01/19 09:05 81 165/58 11/01/19 08:12 Nasal Cannula 2.0 Nasal Cannula 2.0 11/01/19 08:00 97.9 79 20 165/58 (93) 98 11/01/19 08:00 81 11/01/19 04:00 78 11/01/19 04:00 98.8 74 18 140/54 (82) 96 11/01/19 00:00 98.8 72 22 143/50 (81) 96 11/01/19 00:00 74 10/31/19 21:00 Nasal Cannula 2.0 Nasal Cannula 2.0 10/31/19 20:00 98.9 71 22 143/80 (101) 96 10/31/19 20:00 70 10/31/19 16:00 95.4 56 22 119/43 (68) 100 10/31/19 15:27 58 10/31/19 12:00 96.8 56 20 131/45 (73) 100 10/31/19 12:00 52 10/31/19 09:54 64 143/42 Height (Feet): 5 Height (Inches): 8.00 Weight (Pounds): 198 Gen: Older man, NAD in bed CV: RRR Pulm: CTAB anteriorly on 2L Abd: Soft, NTND Laboratory Tests Test 10/31/19 12:29 10/31/19 22:03 11/01/19 06:20 11/01/19 06:35 POC Whole Blood Glucose 196 MG/DL (74-106) H Pending 203 MG/DL (74-106) H White Blood Count 10.6 K/UL (4.8-10.8) Red Blood Count 3.05 M/UL (4.70-6.10) L Hemoglobin 9.4 G/DL (14.2-18.0) L Hematocrit 30.1 % (42.0-52.0) L Mean Corpuscular Volume 99 FL (80-99) Mean Corpuscular Hemoglobin 30.8 PG (27.0-31.0) Mean Corpuscular Hemoglobin Concent 31.1 G/DL (32.0-36.0) L Red Cell Distribution Width 16.1 % (11.6-14.8) H Platelet Count 198 K/UL (150-450) Mean Platelet Volume 8.3 FL (6.5-10.1) Neutrophils (%) (Auto) % (45.0-75.0) Lymphocytes (%) (Auto) % (20.0-45.0) Monocytes (%) (Auto) % (1.0-10.0) Eosinophils (%) (Auto) % (0.0-3.0) Basophils (%) (Auto) % (0.0-2.0) Differential Total Cells Counted 100 Neutrophils % (Manual) 95 % (45-75) H Lymphocytes % (Manual) 4 % (20-45) L Monocytes % (Manual) 1 % (1-10) Eosinophils % (Manual) 0 % (0-3) Basophils % (Manual) 0 % (0-2) Band Neutrophils 0 % (0-8) Platelet Estimate Adequate Platelet Morphology Normal Polychromasia 1+ Hypochromasia 1+ Anisocytosis 1+ Macrocytosis 2+ Sodium Level 134 MMOL/L (136-145) L Potassium Level 3.8 MMOL/L (3.5-5.1) Chloride Level 98 MMOL/L (98-107) Carbon Dioxide Level 33 MMOL/L (21-32) H Anion Gap 3 mmol/L (5-15) L Blood Urea Nitrogen 51 mg/dL (7-18) H Creatinine 3.7 MG/DL (0.55-1.30) H Estimat Glomerular Filtration Rate 15.8 mL/min (>60) Glucose Level 209 MG/DL (74-106) H Calcium Level 9.0 MG/DL (8.5-10.1) Phosphorus Level 6.1 MG/DL (2.5-4.9) H Magnesium Level 2.4 MG/DL (1.8-2.4) Total Bilirubin 0.1 MG/DL (0.2-1.0) L Direct Bilirubin < 0.1 MG/DL (0.0-0.3) Aspartate Amino Transf (AST/SGOT) 44 U/L (15-37) H Alanine Aminotransferase (ALT/SGPT) 31 U/L (12-78) Alkaline Phosphatase 122 U/L (46-116) H Total Protein 6.4 G/DL (6.4-8.2) Albumin 2.5 G/DL (3.4-5.0) L Current Medications Medications (Trade) Dose Ordered Sig/Cammy Route PRN Reason Start Time Stop Time Status Last Admin Dose Admin Acetaminophen (Tylenol) 650 mg Q6H PRN ORAL Pain Scale (3-5) 10/26/19 13:00 11/23/19 06:59 10/27/19 12:11 Amlodipine Besylate (Norvasc) 5 mg DAILY ORAL 10/29/19 09:00 11/25/19 08:59 11/01/19 09:05 Atorvastatin Calcium (Lipitor) 10 mg BEDTIME ORAL 10/26/19 21:00 01/21/20 20:59 10/31/19 22:02 Dextrose (Dextrose 50%) 25 ml Q30M PRN IV Hypoglycemia 10/26/19 13:15 01/20/20 21:44 Dextrose (Dextrose 50%) 50 ml Q30M PRN IV Hypoglycemia 10/26/19 13:15 01/20/20 21:44 Docusate Sodium (Colace) 100 mg TID ORAL 10/26/19 18:00 11/22/19 17:59 11/01/19 09:05 Epoetin William (Epoetin William-EPBX(NON ESRD)) 10,000 unit SUBQ 10/27/19 21:00 01/25/20 20:59 10/29/19 20:30 Gabapentin (Neurontin) 100 mg THREE TIMES A DAY ORAL 10/26/19 18:00 11/22/19 17:59 11/01/19 09:05 Haloperidol (Haldol) 5 mg Q12H PRN ORAL Agitation 10/26/19 12:57 12/10/19 12:56 10/27/19 22:20 Haloperidol Lactate (Haldol) 5 mg Q6H PRN IM Agitation 10/26/19 12:57 12/10/19 12:56 10/28/19 21:06 Hydralazine HCl (Apresoline) 10 mg Q4H PRN IV For High Blood Pressure 10/26/19 13:07 01/24/20 13:06 10/26/19 17:49 Lactulose (Cephulac) 10 gm BID ORAL 11/01/19 09:00 12/01/19 08:59 11/01/19 09:05 Levothyroxine Sodium (Synthroid) 50 mcg DAILY IV 10/27/19 09:00 11/23/19 13:59 11/01/19 09:08 Pantoprazole (Protonix) 40 mg EVERY 12 HOURS IVP 10/26/19 21:00 11/22/19 08:59 11/01/19 09:05 Polyethylene Glycol (Miralax) 17 gm BEDTIME ORAL 11/01/19 21:00 12/01/19 20:59 Rivaroxaban (Xarelto) 15 mg QPM ORAL 10/27/19 16:30 01/25/20 16:29 10/30/19 16:43 Sennosides (Senokot) 8.6 mg HSPRN PRN ORAL Constipation 10/26/19 12:58 11/25/19 12:57 10/27/19 16:20 Sevelamer Carbonate (Renvela) 1,600 mg THREE TIMES A DAY ORAL 10/31/19 18:00 01/21/20 17:59 11/01/19 09:05 Sodium Bicarbonate 50 ml/ Dextrose 1,050 ml @ 50 mls/hr Q21H IV 10/27/19 05:00 11/26/19 04:59 10/31/19 14:37 Vitamin B Complex/ Vit C/Folic Acid (Nephrovite) 1 tab DAILY ORAL 10/27/19 09:00 11/22/19 08:59 11/01/19 09:05 Mckenna Diallo M.D. Nov 01, 2019 09:55
--- NOTE | 2019-11-01 11:05 | Nephrology Progress Note ---
Assessment/Plan Problem List: (1) Renal failure (ARF), acute on chronic (2) Metabolic acidosis (3) Electrolyte imbalance Assessment: Hyponatremia and hyperkalemia (4) Anemia (5) CHF (congestive heart failure) Assessment 79-year-old male is admitted for hypoglycemia Patient has renal failure which appears to be acute on chronic Hyperkalemia Hyponatremia CHF, pleural effusion, pneumonia Anemia Metabolic acidosis Hypothyroidism Plan October 31: Patient was dialyzed yesterday. Clinically doing better. We will continue to monitor renal parameters. Dialysis as needed. October 30: Serum creatinine rising. Patient due to have a temporary dialysis catheter and due for dialysis today. Will continue to follow-up renal parameters. Patient remains full code. October 29: Serum creatinine rising. Serum creatinine 4.5 today. Calculated creatinine clearance is 12. Kidney ultrasound ordered yesterday results were reviewed. Patient appears to have acute renal failure due to underlying sepsis and nephrotoxic medications. Patient requires dialysis treatment. Ordered to obtain consent from the responsible republican. Will communicate with PMD and or he is coverage. October 28: Serum creatinine higher to 4.2 today. Blood pressure appears more stable. In view of worsening renal failure, will order stat kidney ultrasound and urine studies. Continue to monitor renal parameters. Patient is full code. Worsening renal parameters may lead to hemodialysis treatment. October 27: Patient pulled out the Lyles catheter. Serum creatinine went up to 3.8. Blood pressure somewhat low. Heart rate in 50s. Will discontinue Coreg. We will continue to monitor renal parameters. October 26: Serum creatinine lower again today. Will abort the dialysis plan. Continue per consultants. Continue to monitor renal parameters. Medication list reviewed. October 25: Clinically improving. Serum creatinine lower. Urine output increased. No dialysis planned at this time. Continue per consultants. October 24: Patient's respiratory status somewhat improved. Serum creatinine down to 3.9. Urinary output somewhat increased. Will hold placement of dialysis catheter at this time. Blood pressure medication adjusted. Continue to monitor renal parameters. Per orders. October 23: Patient remains on BiPAP. More Kayexalate ordered. Will consider hemodialysis to correct fluid overload and hyperkalemia and acidosis. Will discuss with PMD. Meanwhile IV Synthroid started. Discussed with BENJAMIN Aguirre Patient already transfused 1 unit for severe anemia previously Will initiate Epogen 10,000 units subcutaneously 1 dose of IV iron Venofer 200 g IV Kayexalate for hyperkalemia as needed 2D echocardiogram ordered, ejection fraction is reported normal Kidney ultrasound ordered: Kidneys: Right kidney measures 9.1 cm in length. No hydronephrosis or stone. Left kidney not visualized due to patient's body habitus. Avoid nephrotoxic's Monitor renal parameters Will hold insulin and hypoglycemic agents until hypoglycemia is reasonably resolved Subjective ROS Limited/Unobtainable: No Constitutional: Reports: malaise, weakness Objective Objective Last 24 Hour Vital Signs Date Time Temp Pulse Resp B/P (MAP) Pulse Ox O2 Delivery O2 Flow Rate FiO2 11/01/19 09:05 81 165/58 11/01/19 08:12 Nasal Cannula 2.0 Nasal Cannula 2.0 11/01/19 08:00 97.9 79 20 165/58 (93) 98 11/01/19 08:00 81 11/01/19 04:00 78 11/01/19 04:00 98.8 74 18 140/54 (82) 96 11/01/19 00:00 98.8 72 22 143/50 (81) 96 11/01/19 00:00 74 10/31/19 21:00 Nasal Cannula 2.0 Nasal Cannula 2.0 10/31/19 20:00 98.9 71 22 143/80 (101) 96 10/31/19 20:00 70 10/31/19 16:00 95.4 56 22 119/43 (68) 100 10/31/19 15:27 58 10/31/19 12:00 96.8 56 20 131/45 (73) 100 10/31/19 12:00 52 Intake and Output 10/31/19 11/01/19 19:00 07:00 Output Total 2100 ml 300 ml Balance -2100 ml -300 ml Output Urine Total 100 ml 300 ml Hemodialysis UF 2000 ml # Voids 3 Laboratory Tests 10/31/19 12:29: POC Whole Blood Glucose 196H 10/31/19 22:03: POC Whole Blood Glucose [Pending] 11/01/19 06:20: POC Whole Blood Glucose 203H 11/01/19 06:35: White Blood Count 10.6, Red Blood Count 3.05L, Hemoglobin 9.4L, Hematocrit 30.1L , Mean Corpuscular Volume 99, Mean Corpuscular Hemoglobin 30.8, Mean Corpuscular Hemoglobin Concent 31.1L, Red Cell Distribution Width 16.1H, Platelet Count 198, Mean Platelet Volume 8.3, Neutrophils (%) (Auto) , Lymphocytes (%) (Auto) , Monocytes (%) (Auto) , Eosinophils (%) (Auto) , Basophils (%) (Auto) , Differential Total Cells Counted 100, Neutrophils % ( Manual) 95H, Lymphocytes % (Manual) 4L, Monocytes % (Manual) 1, Eosinophils % ( Manual) 0, Basophils % (Manual) 0, Band Neutrophils 0, Platelet Estimate Adequate, Platelet Morphology Normal, Polychromasia 1+, Hypochromasia 1+, Anisocytosis 1+, Macrocytosis 2+, Sodium Level 134L, Potassium Level 3.8, Chloride Level 98, Carbon Dioxide Level 33H, Anion Gap 3L, Blood Urea Nitrogen 51H, Creatinine 3.7H, Estimat Glomerular Filtration Rate 15.8, Glucose Level 209H, Calcium Level 9.0, Phosphorus Level 6.1H, Magnesium Level 2.4, Total Bilirubin 0.1L, Direct Bilirubin < 0.1, Aspartate Amino Transf (AST/SGOT) 44H, Alanine Aminotransferase (ALT/SGPT) 31, Alkaline Phosphatase 122H, Total Protein 6.4, Albumin 2.5L Height (Feet): 5 Height (Inches): 8.00 Weight (Pounds): 198 General Appearance: no apparent distress, lethargic Cardiovascular: normal rate Respiratory/Chest: decreased breath sounds Abdomen: distended Genitourinary/Rectal: other - Lyles in place Objective No change Naveed Vanegas MD Nov 01, 2019 11:05
[2019-11-01] MEDS: Sodium Bicarbonate 50 ML in D5W 1000ml 1,000 ML IV SCH (11:20)
[2019-11-01 12:00] VITALS: BP 156/51
--- NOTE | 2019-11-01 14:14 | Surgery Progress Note ---
Surgery Progress Note Subjective Procedure Performed Right femoral temporary hemodialysis catheter insertion Additional Comments no acute events comfortable stable no complaints no n/v/f/c labs noted Objective Last 24 Hour Vital Signs Date Time Temp Pulse Resp B/P (MAP) Pulse Ox O2 Delivery O2 Flow Rate FiO2 11/01/19 12:00 97.7 78 22 156/51 (86) 100 11/01/19 12:00 77 11/01/19 09:05 81 165/58 11/01/19 08:12 Nasal Cannula 2.0 Nasal Cannula 2.0 11/01/19 08:00 97.9 79 20 165/58 (93) 98 11/01/19 08:00 81 11/01/19 04:00 78 11/01/19 04:00 98.8 74 18 140/54 (82) 96 11/01/19 00:00 98.8 72 22 143/50 (81) 96 11/01/19 00:00 74 10/31/19 21:00 Nasal Cannula 2.0 Nasal Cannula 2.0 10/31/19 20:00 98.9 71 22 143/80 (101) 96 10/31/19 20:00 70 10/31/19 16:00 95.4 56 22 119/43 (68) 100 10/31/19 15:27 58 I&O Intake and Output 10/31/19 11/01/19 19:00 07:00 Output Total 2100 ml 300 ml Balance -2100 ml -300 ml Output Urine Total 100 ml 300 ml Hemodialysis UF 2000 ml # Voids 3 Cardiovascular: RSR Respiratory: decreased breath sounds Abdomen: soft, non-tender, present bowel sounds Extremities: no cyanosis Laboratory Tests Test 10/31/19 22:03 11/01/19 06:20 11/01/19 06:35 11/01/19 11:23 POC Whole Blood Glucose Pending 203 MG/DL (74-106) H 177 MG/DL (74-106) H White Blood Count 10.6 K/UL (4.8-10.8) Red Blood Count 3.05 M/UL (4.70-6.10) L Hemoglobin 9.4 G/DL (14.2-18.0) L Hematocrit 30.1 % (42.0-52.0) L Mean Corpuscular Volume 99 FL (80-99) Mean Corpuscular Hemoglobin 30.8 PG (27.0-31.0) Mean Corpuscular Hemoglobin Concent 31.1 G/DL (32.0-36.0) L Red Cell Distribution Width 16.1 % (11.6-14.8) H Platelet Count 198 K/UL (150-450) Mean Platelet Volume 8.3 FL (6.5-10.1) Neutrophils (%) (Auto) % (45.0-75.0) Lymphocytes (%) (Auto) % (20.0-45.0) Monocytes (%) (Auto) % (1.0-10.0) Eosinophils (%) (Auto) % (0.0-3.0) Basophils (%) (Auto) % (0.0-2.0) Differential Total Cells Counted 100 Neutrophils % (Manual) 95 % (45-75) H Lymphocytes % (Manual) 4 % (20-45) L Monocytes % (Manual) 1 % (1-10) Eosinophils % (Manual) 0 % (0-3) Basophils % (Manual) 0 % (0-2) Band Neutrophils 0 % (0-8) Platelet Estimate Adequate Platelet Morphology Normal Polychromasia 1+ Hypochromasia 1+ Anisocytosis 1+ Macrocytosis 2+ Sodium Level 134 MMOL/L (136-145) L Potassium Level 3.8 MMOL/L (3.5-5.1) Chloride Level 98 MMOL/L (98-107) Carbon Dioxide Level 33 MMOL/L (21-32) H Anion Gap 3 mmol/L (5-15) L Blood Urea Nitrogen 51 mg/dL (7-18) H Creatinine 3.7 MG/DL (0.55-1.30) H Estimat Glomerular Filtration Rate 15.8 mL/min (>60) Glucose Level 209 MG/DL (74-106) H Calcium Level 9.0 MG/DL (8.5-10.1) Phosphorus Level 6.1 MG/DL (2.5-4.9) H Magnesium Level 2.4 MG/DL (1.8-2.4) Total Bilirubin 0.1 MG/DL (0.2-1.0) L Direct Bilirubin < 0.1 MG/DL (0.0-0.3) Aspartate Amino Transf (AST/SGOT) 44 U/L (15-37) H Alanine Aminotransferase (ALT/SGPT) 31 U/L (12-78) Alkaline Phosphatase 122 U/L (46-116) H Total Protein 6.4 G/DL (6.4-8.2) Albumin 2.5 G/DL (3.4-5.0) L Plan Problems: (1) Hypercarbia (2) Pleural effusion (3) Chronic renal failure (4) Anemia (5) CHF (congestive heart failure) (6) Bacteremia (7) Cellulitis Assessment & Plan: penile swelling improved no active bleeding reyes okazra will monitor (8) Hypoglycemia (9) Hyponatremia (10) ATN (acute tubular necrosis) (11) Metabolic acidosis (12) Pneumonia (13) Cellulitis of foot Assessment & Plan: Pt presented on admission with Bilat TMA. Pressure injuries both heels. Stable dry necrosis note to Plantar /lateral L TMA. L Heel is boggy with non- Blanchable erythema. . R Heel Boggy with Non-Blanchable erythema.Haemosiderin with Xerosis skin noted to R and L lower ext. Darker skin tone without erythema , induration or fluctuance Medial L Malleolus. Darker skin tone without erythema or induration noted to sacrum. Tx.Plan: Apply Moisture Barrier Paste to Sacrum. Cover with Optifoam drsg.Change every 3 days and prn. Apply Betadine to eschar plantar/lateral L TMA . Cover with Optifoam drsg. Change every 3 days and prn. Apply Cavilon Skin Barrier to both heels and Malleoli. Cover each site with Optifoam drsg. Change every 7days and prn. Reposition at least every 2hours or as tolerated. Off load heels with pillow.Hx prior amputation prior MRI and plain films reviewed wounds stable and local care being provided no abscess noted cont with dressings elevate heels with pillow turn q2h off load pressure air mattress will follow with recs thank you (14) Osteomyelitis (15) History of hypertension (16) Renal failure (ARF), acute on chronic (17) Acute encephalopathy (18) Diabetes mellitus (19) Hypertension (20) Cholelithiasis Assessment & Plan: US reviewed exam benign asymptomatic cholelithiasis alk phos mild elevated lfts improved trend labs no acute surgical intervention planned Liver: Liver measures 14.8 cm. No intrahepatic bile duct dilation. Gallbladder: Small stone in the gallbladder. No significant gallbladder wall thickening or pericholecystic fluid. Negative sonographic Bianchi's sign. Common bile duct: Normal common bile duct measuring 4.5 mm. No stones. No dilation. Pancreas: Pancreas is not visualized due to overlying bowel gas. Kidneys: Right kidney measures 9.1 cm in length. No hydronephrosis or stone. Left kidney not visualized due to patient's body habitus. Spleen: Spleen measures 9.4 cm. No focal lesion. Aorta: Visualized portions of the aorta are grossly unremarkable. The mid and distal portions are obscured by bowel gas. Inferior vena cava: Unremarkable. Free fluid: No ascites. Tubes, lines and devices: Reyes catheter in a decompressed bladder. IMPRESSION: Small stone in the gallbladder. No significant gallbladder wall thickening or pericholecystic fluid. Negative sonographic Bianchi's sign. Mariusz Diehl Nov 01, 2019 14:14
--- NOTE | 2019-11-01 15:30 | Diagnostic Imaging Report ---
Indications: Altered mental status Technique: Spiral acquisitions obtained through the brain. Angled axial and coronal 5 x 5 mm slices were reconstructed. Total dose length product 1018 mGycm. CTDI vol(s) 53 mGy. Dose reduction achieved using automated exposure control Comparison: 10/22/2019 Findings: There is mild age-related enlargement of the ventricles and extra axial CSF spaces. Normal sweeney-white differentiation. Old lacunar infarct is seen in the right basal ganglia, also evident previously. No acute intracranial hemorrhage or edema. No mass effect nor midline shift. There is some soft tissue swelling in the left parietal scalp which is also evident previously. The calvarium is intact. There is opacification of several mastoid air cells bilaterally. This is a new finding. Impression: Chronic and age-related changes, as described. 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 The CT scanner at [facility] is accredited by the [employer] and the scans are performed using protocols designed to limit radiation exposure to as low as reasonably achievable to attain images of sufficient resolution adequate for diagnostic evaluation.
[2019-11-01 15:51] VITALS: BP 152/55
--- NOTE | 2019-11-01 16:44 | Diagnostic Imaging Report ---
Indication: Post nasogastric tube placement Technique: Supine view of the upper abdomen Comparison: none Findings: There is a nasogastric tube in place, tip of which projects at the level of the gastric fundus in good position. The visualized bowel gas is unremarkable Impression: Satisfactory nasogastric intubation
[2019-11-01] MEDS: Xarelto 15mg tab ORAL SCH (16:56)
[2019-11-01 20:00] VITALS: BP 150/50
[2019-11-01] MEDS ORDERED: Miralax 17gm pkt ORAL SCH (21:00)
[2019-11-01] MEDS: Epoetin Alfa-EPBX (NON ESRD)10,000 unit/ml vial SUBQ SCH (21:50)
[2019-11-02] VITALS: BP 155/68
--- NOTE | 2019-11-02 00:04 | Psych Consult Progress Note ---
Psychiatry Progress Note Psychiatry Progress Note Subjective 11/01/19 pt's mental condition is the same the pt is still have episodes o agitations Medications Current Medications Medications (Trade) Dose Ordered Sig/Cammy Route PRN Reason Start Time Stop Time Status Last Admin Dose Admin Acetaminophen (Tylenol) 650 mg Q6H PRN ORAL Pain Scale (3-5) 10/26/19 13:00 11/23/19 06:59 10/27/19 12:11 Amlodipine Besylate (Norvasc) 5 mg BID ORAL 11/01/19 18:00 11/25/19 08:59 11/01/19 17:14 Atorvastatin Calcium (Lipitor) 10 mg BEDTIME ORAL 10/26/19 21:00 01/21/20 20:59 11/01/19 21:50 Dextrose (Dextrose 50%) 25 ml Q30M PRN IV Hypoglycemia 10/26/19 13:15 01/20/20 21:44 Dextrose (Dextrose 50%) 50 ml Q30M PRN IV Hypoglycemia 10/26/19 13:15 01/20/20 21:44 Docusate Sodium (Colace) 100 mg TID ORAL 10/26/19 18:00 11/22/19 17:59 11/01/19 16:56 Epoetin William (Epoetin William-EPBX(NON ESRD)) 10,000 unit FRI-FRI-FRI SUBQ 10/27/19 21:00 01/25/20 20:59 11/01/19 21:50 Haloperidol (Haldol) 5 mg Q12H PRN ORAL Agitation 10/26/19 12:57 12/10/19 12:56 10/27/19 22:20 Haloperidol Lactate (Haldol) 5 mg Q6H PRN IM Agitation 10/26/19 12:57 12/10/19 12:56 10/28/19 21:06 Hydralazine HCl (Apresoline) 10 mg Q4H PRN IV For High Blood Pressure 10/26/19 13:07 01/24/20 13:06 10/26/19 17:49 Insulin Aspart (NovoLOG) BEFORE MEALS AND HS SUBQ 11/02/19 06:30 01/31/20 06:29 Lactulose (Cephulac) 10 gm BID ORAL 11/01/19 09:00 12/01/19 08:59 11/01/19 16:56 Levothyroxine Sodium (Synthroid) 50 mcg DAILY IV 10/27/19 09:00 11/23/19 13:59 11/01/19 09:08 Pantoprazole (Protonix) 40 mg EVERY 12 HOURS IVP 10/26/19 21:00 11/22/19 08:59 11/01/19 21:50 Polyethylene Glycol (Miralax) 17 gm BEDTIME ORAL 11/01/19 21:00 12/01/19 20:59 11/01/19 21:50 Rivaroxaban (Xarelto) 15 mg QPM ORAL 10/27/19 16:30 01/25/20 16:29 11/01/19 16:56 Sennosides (Senokot) 8.6 mg HSPRN PRN ORAL Constipation 10/26/19 12:58 11/25/19 12:57 10/27/19 16:20 Sevelamer Carbonate (Renvela) 1,600 mg THREE TIMES A DAY ORAL 10/31/19 18:00 01/21/20 17:59 11/01/19 16:56 Sodium Bicarbonate 50 ml/ Dextrose 1,050 ml @ 50 mls/hr Q21H IV 10/27/19 05:00 11/26/19 04:59 11/01/19 11:20 Vitamin B Complex/ Vit C/Folic Acid (Nephrovite) 1 tab DAILY ORAL 10/27/19 09:00 11/22/19 08:59 11/01/19 09:05 Neurological/Psychiatric: Denies: no symptoms, anxiety, depressed, emotional problems, headache, numbness, paresthesia, pre-existing deficit, seizure, tingling, tremors, weakness, other Allergies: Coded Allergies: PENICILLINS (Verified Allergy, Unknown, 10/25/19) tolerated Ceftriaxone Objective Data Height (Feet): 5 Height (Inches): 8.00 Weight (Pounds): 198 Additional Comments: awake, confused, and disoriented. Mood is agitated. Affect is flat. Thought process, there is a paucity of thought content. Thought content, no suicidal or homicidal ideation. Cognition is impaired. Insight and judgment impaired. Assessment/Plan [place] I: 1. Dementia with behavior disturbance. 2. Acute encephalopathy. PLAN: 1. We will continue the Haldol IM 2. Discussed with the nurse. Status Narrative 1. Dementia with behavior disturbance. 2. Acute encephalopathy. PLAN: 1. We will continue the Haldol IM 2. Discussed with the nurse. Assessment/Plan: 1. Dementia with behavior disturbance. 2. Acute encephalopathy. PLAN: 1. We will continue the Haldol IM 2. Discussed with the nurse. Dada Finch MD Nov 02, 2019 00:04
[2019-11-02 04:15] VITALS: BP 155/54
[2019-11-02 06:32] LABS: HEMATOCRIT 27.6 % (42.0-52.0); HEMOGLOBIN 8.7 G/DL (14.2-18.0); MEAN CORPUSCULAR VOLUME 98 FL (80-99); PLATELET COUNT 193 K/UL (150-450); RED BLOOD COUNT 2.81 M/UL (4.70-6.10); RED CELL DISTRIBUTION WIDTH 15.6 % (11.6-14.8); WHITE BLOOD COUNT 10.1 K/UL (4.8-10.8)
[2019-11-02] MEDS: NovoLOG Insulin Flexpen SUBQ SCH ×4 (06:46→21:00)
[2019-11-02 07:11] LABS: ALANINE AMINOTRANSFERASE 29 U/L (12-78); ALBUMIN 2.3 G/DL (3.4-5.0); ALBUMIN/GLOBULIN RATIO 0.7 (1.0-2.7); ALKALINE PHOSPHATASE 100 U/L (46-116); ANION GAP 6 mmol/L (5-15); ASPARTATE AMINO TRANSFERASE 33 U/L (15-37); BILIRUBIN,TOTAL 0.1 MG/DL (0.2-1.0); BLOOD UREA NITROGEN 62 mg/dL (7-18); CALCIUM 9.1 MG/DL (8.5-10.1); CARBON DIOXIDE 30 MMOL/L (21-32); CHLORIDE 95 MMOL/L (98-107); CREATININE 4.1 MG/DL (0.55-1.30); PHOSPHORUS 5.6 MG/DL (2.5-4.9); POTASSIUM 3.5 MMOL/L (3.5-5.1); SODIUM 131 MMOL/L (136-145)
--- NOTE | 2019-11-02 07:50 | Infectious Diseases Prog Note ---
Assessment/Plan 79yo M from SNF who p/w hypoglycemia and resp failure: Acute hypoxic respiratory failure, on BiPAP > 2L NC> RA > 2L NC Rapid COVID neg x2 (10/21, 10/24) Pneumonia on CXR Volume overload 10/30 CXR: Slightly improved 10/25 CXR: Bilateral alveolar densities are unchanged 10/24 Sp cx normal resp demario (prelim) 10/23 CXR: 1. Small layering right pleural effusion, not significantly changed. The previously noted small left pleural effusion is not as evident.Prominent lung markings and haziness, right greater left, which may be related to pulmonary vascular congestion versus pneumonitis. This is not significantly changed.. Subsegmental atelectasis versus infiltrate in the medial left lung base, also not significantly changed. 10/21 CXR: 1. Small bilateral pleural effusions. Bibasilar atelectasis versus pneumonia. 2. Prominent lung markings and hazy opacities in right greater than left lungs may represent artifact versus pulmonary vasculature congestion and edema versus infectious/inflammatory process. 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 10/31 No clear clinical correlate to this imaging finding, s/p 7 days of CTX which is good abx for mastoiditis Hypercapnia, ongoing; on BiPAP Afebrile No leukocytosis Anemia to 6.8, improved UA neg, UCx neg R/o bacteremia 10/21 BCx NTD ALEXIS on CKD, worsening --> now on HD HBsAg neg Plan: Monitor off abx, s/p 7d of abx for pna, but this also covered for possible mastoiditis ENT to evaluate ears/TMs for signs of underlying mastoiditis, as seen on CT head 10/31 SP CTX #7 10/26 SP vancomycin IV #5 Trend resp status Monitor CBC, CMP D/w RN Thank you for this consult. [facility] will continue to follow. Subjective Allergies: Coded Allergies: PENICILLINS (Verified Allergy, Unknown, 10/25/19) tolerated Ceftriaxone AF WBC 10, stable NAD Non-responsive on BiPAP Objective Last 24 Hour Vital Signs Date Time Temp Pulse Resp B/P (MAP) Pulse Ox O2 Delivery O2 Flow Rate FiO2 11/02/19 04:39 63 17 99 30 11/02/19 04:15 98.4 65 20 155/54 (87) 99 11/02/19 04:00 65 11/02/19 03:21 164/70 11/02/19 02:43 68 17 100 30 11/02/19 00:34 70 16 99 30 11/02/19 00:00 66 11/02/19 00:00 98.1 66 20 155/68 (97) 99 11/01/19 22:46 67 17 100 30 11/01/19 21:26 74 19 99 30 11/01/19 21:00 Nasal Cannula 2.0 Nasal Cannula 2.0 11/01/19 20:00 98.1 70 19 150/50 (83) 100 11/01/19 20:00 70 11/01/19 19:55 75 16 98 Bi-Pap 30 11/01/19 19:55 69 18 98 30 11/01/19 17:14 74 152/55 11/01/19 16:19 74 11/01/19 15:51 97.6 76 20 152/55 (87) 99 11/01/19 12:00 97.7 78 22 156/51 (86) 100 11/01/19 12:00 77 11/01/19 09:05 81 165/58 11/01/19 08:12 Nasal Cannula 2.0 Nasal Cannula 2.0 11/01/19 08:00 97.9 79 20 165/58 (93) 98 11/01/19 08:00 81 Height (Feet): 5 Height (Inches): 8.00 Weight (Pounds): 198 Gen: Older man, NAD in bed CV: RRR Pulm: CTAB anteriorly on BiPAP Abd: Soft, NTND Laboratory Tests Test 11/01/19 11:23 11/01/19 15:42 11/01/19 15:45 11/01/19 16:01 POC Whole Blood Glucose 177 MG/DL (74-106) H 169 MG/DL (74-106) H Arterial Blood pH 7.331 (7.350-7.450) Arterial Blood Partial Pressure CO2 62.1 mmHg (35.0-45.0) *H Arterial Blood Partial Pressure O2 65.2 mmHg (75.0-100.0) L Arterial Blood HCO3 32.1 mmol/L (22.0-26.0) H Arterial Blood Oxygen Saturation 92.7 % (95-100) L Arterial Blood Base Excess 5.0 (-2-2) H Kristian Test Positive Ammonia 32 umol/L (11-32) Test 8/10/20 20:47 11/02/19 06:03 11/02/19 06:23 POC Whole Blood Glucose 189 MG/DL (74-106) H 159 MG/DL (74-106) H White Blood Count 10.1 K/UL (4.8-10.8) Red Blood Count 2.81 M/UL (4.70-6.10) L Hemoglobin 8.7 G/DL (14.2-18.0) L Hematocrit 27.6 % (42.0-52.0) L Mean Corpuscular Volume 98 FL (80-99) Mean Corpuscular Hemoglobin 31.1 PG (27.0-31.0) H Mean Corpuscular Hemoglobin Concent 31.7 G/DL (32.0-36.0) L Red Cell Distribution Width 15.6 % (11.6-14.8) H Platelet Count 193 K/UL (150-450) Mean Platelet Volume 7.6 FL (6.5-10.1) Neutrophils (%) (Auto) % (45.0-75.0) Lymphocytes (%) (Auto) % (20.0-45.0) Monocytes (%) (Auto) % (1.0-10.0) Eosinophils (%) (Auto) % (0.0-3.0) Basophils (%) (Auto) % (0.0-2.0) Neutrophils % (Manual) Pending Lymphocytes % (Manual) Pending Platelet Estimate Pending Platelet Morphology Pending Sodium Level 131 MMOL/L (136-145) L Potassium Level 3.5 MMOL/L (3.5-5.1) Chloride Level 95 MMOL/L (98-107) L Carbon Dioxide Level 30 MMOL/L (21-32) Anion Gap 6 mmol/L (5-15) Blood Urea Nitrogen 62 mg/dL (7-18) H Creatinine 4.1 MG/DL (0.55-1.30) H Estimat Glomerular Filtration Rate 14.1 mL/min (>60) Glucose Level 166 MG/DL (74-106) H Calcium Level 9.1 MG/DL (8.5-10.1) Phosphorus Level 5.6 MG/DL (2.5-4.9) H Magnesium Level 2.3 MG/DL (1.8-2.4) Total Bilirubin 0.1 MG/DL (0.2-1.0) L Aspartate Amino Transf (AST/SGOT) 33 U/L (15-37) Alanine Aminotransferase (ALT/SGPT) 29 U/L (12-78) Alkaline Phosphatase 100 U/L (46-116) C-Reactive Protein, Quantitative 4.1 mg/dL (0.00-0.90) H Pro-B-Type Natriuretic Peptide 08039 pg/mL (0-125) H Total Protein 5.8 G/DL (6.4-8.2) L Albumin 2.3 G/DL (3.4-5.0) L Globulin 3.5 g/dL Albumin/Globulin Ratio 0.7 (1.0-2.7) L Current Medications Medications (Trade) Dose Ordered Sig/Cammy Route PRN Reason Start Time Stop Time Status Last Admin Dose Admin Acetaminophen (Tylenol) 650 mg Q6H PRN ORAL Pain Scale (3-5) 10/26/19 13:00 11/23/19 06:59 10/27/19 12:11 Amlodipine Besylate (Norvasc) 5 mg BID ORAL 11/01/19 18:00 11/25/19 08:59 11/01/19 17:14 Atorvastatin Calcium (Lipitor) 10 mg BEDTIME ORAL 10/26/19 21:00 01/21/20 20:59 11/01/19 21:50 Dextrose (Dextrose 50%) 25 ml Q30M PRN IV Hypoglycemia 10/26/19 13:15 01/20/20 21:44 Dextrose (Dextrose 50%) 50 ml Q30M PRN IV Hypoglycemia 10/26/19 13:15 01/20/20 21:44 Docusate Sodium (Colace) 100 mg TID ORAL 10/26/19 18:00 11/22/19 17:59 11/01/19 16:56 Epoetin William (Epoetin William-EPBX(NON ESRD)) 10,000 unit FRI-FRI-FRI SUBQ 10/27/19 21:00 01/25/20 20:59 11/01/19 21:50 Haloperidol (Haldol) 5 mg Q12H PRN ORAL Agitation 10/26/19 12:57 12/10/19 12:56 10/27/19 22:20 Haloperidol Lactate (Haldol) 5 mg Q6H PRN IM Agitation 10/26/19 12:57 12/10/19 12:56 10/28/19 21:06 Hydralazine HCl (Apresoline) 10 mg Q4H PRN IV For High Blood Pressure 10/26/19 13:07 01/24/20 13:06 11/02/19 03:21 Insulin Aspart (NovoLOG) BEFORE MEALS AND HS SUBQ 11/02/19 06:30 01/31/20 06:29 11/02/19 06:46 Lactulose (Cephulac) 10 gm BID ORAL 11/01/19 09:00 12/01/19 08:59 11/01/19 16:56 Levothyroxine Sodium (Synthroid) 50 mcg DAILY IV 10/27/19 09:00 11/23/19 13:59 11/01/19 09:08 Pantoprazole (Protonix) 40 mg EVERY 12 HOURS IVP 10/26/19 21:00 11/22/19 08:59 11/01/19 21:50 Polyethylene Glycol (Miralax) 17 gm BEDTIME ORAL 11/01/19 21:00 12/01/19 20:59 11/01/19 21:50 Rivaroxaban (Xarelto) 15 mg QPM ORAL 10/27/19 16:30 01/25/20 16:29 11/01/19 16:56 Sennosides (Senokot) 8.6 mg HSPRN PRN ORAL Constipation 10/26/19 12:58 11/25/19 12:57 10/27/19 16:20 Sevelamer Carbonate (Renvela) 1,600 mg THREE TIMES A DAY ORAL 10/31/19 18:00 01/21/20 17:59 11/01/19 16:56 Sodium Bicarbonate 50 ml/ Dextrose 1,050 ml @ 50 mls/hr Q21H IV 10/27/19 05:00 11/26/19 04:59 11/01/19 11:20 Vitamin B Complex/ Vit C/Folic Acid (Nephrovite) 1 tab DAILY ORAL 10/27/19 09:00 11/22/19 08:59 11/01/19 09:05 Mckenna Diallo M.D. Nov 02, 2019 07:49
[2019-11-02 08:00] VITALS: BP 126/43
--- NOTE | 2019-11-02 08:06 | General Progress Note ---
Assessment/Plan Problem List: (1) Hypertension ICD Codes: I10 - Essential (primary) hypertension SNOMED: 47347397 (2) Diabetes mellitus ICD Codes: E11.9 - Type 2 diabetes mellitus without complications SNOMED: 94280009 (3) Anemia ICD Codes: D64.9 - Anemia, unspecified SNOMED: 980936462 (4) Cholelithiasis ICD Codes: K80.20 - Calculus of gallbladder without cholecystitis without obstruction SNOMED: 221887455 (5) CHF (congestive heart failure) ICD Codes: I50.9 - Heart failure, unspecified SNOMED: 06541788 Assessment/Plan: patient on Xerallto stool ob positive but no overt GIB patient on BIPAP and not stable for GI procedures at this time stable H&H s/p one unit PRBC fu cbc repeat stool ob ppi bid GI procedures when patient is more stable bowel regimen management of hyponatremia per nephrology Subjective ROS Limited/Unobtainable: No Allergies: Coded Allergies: PENICILLINS (Verified Allergy, Unknown, 10/25/19) tolerated Ceftriaxone Objective Last 24 Hour Vital Signs Date Time Temp Pulse Resp B/P (MAP) Pulse Ox O2 Delivery O2 Flow Rate FiO2 11/02/19 04:39 63 17 99 30 11/02/19 04:15 98.4 65 20 155/54 (87) 99 11/02/19 04:00 65 11/02/19 03:21 164/70 11/02/19 02:43 68 17 100 30 11/02/19 00:34 70 16 99 30 11/02/19 00:00 66 11/02/19 00:00 98.1 66 20 155/68 (97) 99 11/01/19 22:46 67 17 100 30 11/01/19 21:26 74 19 99 30 11/01/19 21:00 Nasal Cannula 2.0 Nasal Cannula 2.0 11/01/19 20:00 98.1 70 19 150/50 (83) 100 11/01/19 20:00 70 11/01/19 19:55 75 16 98 Bi-Pap 30 11/01/19 19:55 69 18 98 30 11/01/19 17:14 74 152/55 11/01/19 16:19 74 11/01/19 15:51 97.6 76 20 152/55 (87) 99 11/01/19 12:00 97.7 78 22 156/51 (86) 100 11/01/19 12:00 77 11/01/19 09:05 81 165/58 11/01/19 08:12 Nasal Cannula 2.0 Nasal Cannula 2.0 Intake and Output 11/01/19 11/02/19 19:00 07:00 Output Total 100 ml 400 ml Balance -100 ml -400 ml Output Urine Total 100 ml 400 ml # Voids 1 1 Laboratory Tests 11/01/19 11:23: POC Whole Blood Glucose 177H 11/01/19 15:42: Arterial Blood pH 7.331L, Arterial Blood Partial Pressure CO2 62.1*H, Arterial Blood Partial Pressure O2 65.2L, Arterial Blood HCO3 32.1H, Arterial Blood Oxygen Saturation 92.7L, Arterial Blood Base Excess 5.0H, Kristian Test Positive 11/01/19 15:45: Ammonia 32 11/01/19 16:01: POC Whole Blood Glucose 169H 11/01/19 20:47: POC Whole Blood Glucose 189H 11/02/19 06:03: White Blood Count 10.1, Red Blood Count 2.81L, Hemoglobin 8.7L, Hematocrit 27.6L , Mean Corpuscular Volume 98, Mean Corpuscular Hemoglobin 31.1H, Mean Corpuscular Hemoglobin Concent 31.7L, Red Cell Distribution Width 15.6H, Platelet Count 193, Mean Platelet Volume 7.6, Neutrophils (%) (Auto) , Lymphocytes (%) (Auto) , Monocytes (%) (Auto) , Eosinophils (%) (Auto) , Basophils (%) (Auto) , Neutrophils % (Manual) [Pending], Lymphocytes % (Manual) [Pending], Platelet Estimate [Pending], Platelet Morphology [Pending], Sodium Level 131L, Potassium Level 3.5, Chloride Level 95L, Carbon Dioxide Level 30, Anion Gap 6, Blood Urea Nitrogen 62H, Creatinine 4.1H, Estimat Glomerular Filtration Rate 14.1, Glucose Level 166H, Calcium Level 9.1, Phosphorus Level 5.6H, Magnesium Level 2.3, Total Bilirubin 0.1L, Aspartate Amino Transf (AST/ SGOT) 33, Alanine Aminotransferase (ALT/SGPT) 29, Alkaline Phosphatase 100, C- Reactive Protein, Quantitative 4.1H, Pro-B-Type Natriuretic Peptide 47683G, Total Protein 5.8L, Albumin 2.3L, Globulin 3.5, Albumin/Globulin Ratio 0.7L 11/02/19 06:23: POC Whole Blood Glucose 159H Height (Feet): 5 Height (Inches): 8.00 Weight (Pounds): 198 General Appearance: lethargic EENT: normal ENT inspection Neck: supple Cardiovascular: tachycardia Respiratory/Chest: decreased breath sounds Abdomen: soft, hypoactive bowel sounds Extremities: non-tender Lawrence Humphreys MD Nov 02, 2019 08:06
[2019-11-02] MEDS: Sodium Bicarbonate 50 ML in D5W 1000ml 1,000 ML IV SCH (09:07)
[2019-11-02] MEDS: Pantoprazole Inj IVP SCH ×2 (09:11→20:37)
[2019-11-02] MEDS: Docusate 100mg cap ORAL SCH ×2 (09:11→13:00)
[2019-11-02] MEDS: Nephrovite tab (Rena-Vite) ORAL SCH (09:11)
[2019-11-02] MEDS: Renvela 800mg Pkt ORAL SCH ×2 (09:11→13:00)
[2019-11-02] MEDS: Lactulose 10gm/15ml UDC ORAL SCH (09:11)
--- NOTE | 2019-11-02 09:50 | Nephrology Progress Note ---
Assessment/Plan Problem List: (1) Renal failure (ARF), acute on chronic (2) Metabolic acidosis (3) Electrolyte imbalance Assessment: Hyponatremia and hyperkalemia (4) Anemia (5) CHF (congestive heart failure) Assessment 79-year-old male is admitted for hypoglycemia Patient has renal failure which appears to be acute on chronic Hyperkalemia Hyponatremia CHF, pleural effusion, pneumonia Anemia Metabolic acidosis Hypothyroidism Plan November 01: Patient currently being dialyzed. Tolerating well. Labs will be reviewed. Continue per consultants. October 31: Patient was dialyzed yesterday. Clinically doing better. We will continue to monitor renal parameters. Dialysis as needed. October 30: Serum creatinine rising. Patient due to have a temporary dialysis catheter and due for dialysis today. Will continue to follow-up renal parameters. Patient remains full code. October 29: Serum creatinine rising. Serum creatinine 4.5 today. Calculated creatinine clearance is 12. Kidney ultrasound ordered yesterday results were reviewed. Patient appears to have acute renal failure due to underlying sepsis and nephrotoxic medications. Patient requires dialysis treatment. Ordered to obtain consent from the responsible libertarian. Will communicate with PMD and or he is coverage. October 28: Serum creatinine higher to 4.2 today. Blood pressure appears more stable. In view of worsening renal failure, will order stat kidney ultrasound and urine studies. Continue to monitor renal parameters. Patient is full code. Worsening renal parameters may lead to hemodialysis treatment. October 27: Patient pulled out the Lyles catheter. Serum creatinine went up to 3.8. Blood pressure somewhat low. Heart rate in 50s. Will discontinue Coreg. We will continue to monitor renal parameters. October 26: Serum creatinine lower again today. Will abort the dialysis plan. Continue per consultants. Continue to monitor renal parameters. Medication list reviewed. October 25: Clinically improving. Serum creatinine lower. Urine output increased. No dialysis planned at this time. Continue per consultants. October 24: Patient's respiratory status somewhat improved. Serum creatinine down to 3.9. Urinary output somewhat increased. Will hold placement of dialysis catheter at this time. Blood pressure medication adjusted. Continue to monitor renal parameters. Per orders. October 23: Patient remains on BiPAP. More Kayexalate ordered. Will consider hemodialysis to correct fluid overload and hyperkalemia and acidosis. Will discuss with PMD. Meanwhile IV Synthroid started. Discussed with BENJAMIN Aguirre Patient already transfused 1 unit for severe anemia previously Will initiate Epogen 10,000 units subcutaneously 1 dose of IV iron Venofer 200 g IV Kayexalate for hyperkalemia as needed 2D echocardiogram ordered, ejection fraction is reported normal Kidney ultrasound ordered: Kidneys: Right kidney measures 9.1 cm in length. No hydronephrosis or stone. Left kidney not visualized due to patient's body habitus. Avoid nephrotoxic's Monitor renal parameters Will hold insulin and hypoglycemic agents until hypoglycemia is reasonably resolved Subjective ROS Limited/Unobtainable: No Constitutional: Reports: malaise Objective Objective Last 24 Hour Vital Signs Date Time Temp Pulse Resp B/P (MAP) Pulse Ox O2 Delivery O2 Flow Rate FiO2 11/02/19 09:11 63 126/43 11/02/19 08:00 96.4 63 16 126/43 (70) 100 11/02/19 08:00 63 11/02/19 04:39 63 17 99 30 11/02/19 04:15 98.4 65 20 155/54 (87) 99 11/02/19 04:00 65 11/02/19 03:21 164/70 11/02/19 02:43 68 17 100 30 11/02/19 00:34 70 16 99 30 11/02/19 00:00 66 11/02/19 00:00 98.1 66 20 155/68 (97) 99 11/01/19 22:46 67 17 100 30 11/01/19 21:26 74 19 99 30 11/01/19 21:00 Nasal Cannula 2.0 Nasal Cannula 2.0 11/01/19 20:00 98.1 70 19 150/50 (83) 100 11/01/19 20:00 70 11/01/19 19:55 75 16 98 Bi-Pap 30 11/01/19 19:55 69 18 98 30 11/01/19 17:14 74 152/55 11/01/19 16:19 74 11/01/19 15:51 97.6 76 20 152/55 (87) 99 11/01/19 12:00 97.7 78 22 156/51 (86) 100 11/01/19 12:00 77 Intake and Output 11/01/19 11/02/19 19:00 07:00 Output Total 100 ml 400 ml Balance -100 ml -400 ml Output Urine Total 100 ml 400 ml # Voids 1 1 Laboratory Tests 11/01/19 11:23: POC Whole Blood Glucose 177H 11/01/19 15:42: Arterial Blood pH 7.331L, Arterial Blood Partial Pressure CO2 62.1*H, Arterial Blood Partial Pressure O2 65.2L, Arterial Blood HCO3 32.1H, Arterial Blood Oxygen Saturation 92.7L, Arterial Blood Base Excess 5.0H, Kristian Test Positive 11/01/19 15:45: Ammonia 32 11/01/19 16:01: POC Whole Blood Glucose 169H 11/01/19 20:47: POC Whole Blood Glucose 189H 11/02/19 06:03: White Blood Count 10.1, Red Blood Count 2.81L, Hemoglobin 8.7L, Hematocrit 27.6L , Mean Corpuscular Volume 98, Mean Corpuscular Hemoglobin 31.1H, Mean Corpuscular Hemoglobin Concent 31.7L, Red Cell Distribution Width 15.6H, Platelet Count 193, Mean Platelet Volume 7.6, Neutrophils (%) (Auto) , Lymphocytes (%) (Auto) , Monocytes (%) (Auto) , Eosinophils (%) (Auto) , Basophils (%) (Auto) , Neutrophils % (Manual) [Pending], Lymphocytes % (Manual) [Pending], Platelet Estimate [Pending], Platelet Morphology [Pending], Sodium Level 131L, Potassium Level 3.5, Chloride Level 95L, Carbon Dioxide Level 30, Anion Gap 6, Blood Urea Nitrogen 62H, Creatinine 4.1H, Estimat Glomerular Filtration Rate 14.1, Glucose Level 166H, Calcium Level 9.1, Phosphorus Level 5.6H, Magnesium Level 2.3, Total Bilirubin 0.1L, Aspartate Amino Transf (AST/ SGOT) 33, Alanine Aminotransferase (ALT/SGPT) 29, Alkaline Phosphatase 100, C- Reactive Protein, Quantitative 4.1H, Pro-B-Type Natriuretic Peptide 30014B, Total Protein 5.8L, Albumin 2.3L, Globulin 3.5, Albumin/Globulin Ratio 0.7L 11/02/19 06:23: POC Whole Blood Glucose 159H Height (Feet): 5 Height (Inches): 8.00 Weight (Pounds): 198 General Appearance: no apparent distress Cardiovascular: normal rate Respiratory/Chest: decreased breath sounds Abdomen: soft Objective No change Naveed Vanegas MD Nov 02, 2019 09:50
--- NOTE | 2019-11-02 11:40 | Pulmonology Progress Note ---
Reema Hanna PROCUREMENT FORESTER 11/02/19 1140: Subjective ROS Limited/Unobtainable: No Allergies: Coded Allergies: PENICILLINS (Verified Allergy, Unknown, 10/25/19) tolerated Ceftriaxone Subjective yesterday afternoon appeared less alert and responsive ABG was done- hyperpnea restarted on BiPAP CT head negative ammonia WNL this am remains on BiPAP HD today NG tube inserted as per nephro recs CO2 stable on BMP no signs of resp distress less responsive not noted any residual weakness remains afebrile, no leukocytosis Objective Last 24 Hour Vital Signs Date Time Temp Pulse Resp B/P (MAP) Pulse Ox O2 Delivery O2 Flow Rate FiO2 11/02/19 09:11 63 126/43 11/02/19 09:00 Bi-pap 10.0 Bi-pap 10.0 11/02/19 08:00 96.4 63 16 126/43 (70) 100 11/02/19 08:00 63 11/02/19 07:35 63 16 10 30 11/02/19 07:35 63 16 100 Bi-Pap 30 11/02/19 04:39 63 17 99 30 11/02/19 04:15 98.4 65 20 155/54 (87) 99 11/02/19 04:00 65 11/02/19 03:21 164/70 11/02/19 02:43 68 17 100 30 11/02/19 00:34 70 16 99 30 11/02/19 00:00 66 11/02/19 00:00 98.1 66 20 155/68 (97) 99 11/01/19 22:46 67 17 100 30 11/01/19 21:26 74 19 99 30 11/01/19 21:00 Nasal Cannula 2.0 Nasal Cannula 2.0 11/01/19 20:00 98.1 70 19 150/50 (83) 100 11/01/19 20:00 70 11/01/19 19:55 75 16 98 Bi-Pap 30 11/01/19 19:55 69 18 98 30 11/01/19 17:14 74 152/55 11/01/19 16:19 74 11/01/19 15:51 97.6 76 20 152/55 (87) 99 11/01/19 12:00 97.7 78 22 156/51 (86) 100 11/01/19 12:00 77 Intake and Output 11/01/19 11/02/19 19:00 07:00 Output Total 100 ml 400 ml Balance -100 ml -400 ml Output Urine Total 100 ml 400 ml # Voids 1 1 Objective General Appearance: no apparent distress, [place] speaking confused male, on BiPAP 10/5 FiO2 30% Lines, tubes and drains: peripheral HEENT: normocephalic, atraumatic, anicteric, mucous membranes moist, BiPAP mask on Respiratory/Chest: few scattered crackles, no exp wheezing, Cardiovascular/Chest: normal rate, regular rhythm Abdomen: normal bowel sounds, non tender, soft Extremities: partially amputated BL foot Skin Exam: warm/dry Neurologic: abnormal gait, less responsive, confused Musculoskeletal: atrophy BLE Laboratory Tests 11/01/19 15:42: Arterial Blood pH 7.331L, Arterial Blood Partial Pressure CO2 62.1*H, Arterial Blood Partial Pressure O2 65.2L, Arterial Blood HCO3 32.1H, Arterial Blood Oxygen Saturation 92.7L, Arterial Blood Base Excess 5.0H, Kristian Test Positive 11/01/19 15:45: Ammonia 32 11/01/19 16:01: POC Whole Blood Glucose 169H 11/01/19 20:47: POC Whole Blood Glucose 189H 11/02/19 06:03: White Blood Count 10.1, Red Blood Count 2.81L, Hemoglobin 8.7L, Hematocrit 27.6L , Mean Corpuscular Volume 98, Mean Corpuscular Hemoglobin 31.1H, Mean Corpuscular Hemoglobin Concent 31.7L, Red Cell Distribution Width 15.6H, Platelet Count 193, Mean Platelet Volume 7.6, Neutrophils (%) (Auto) , Lymphocytes (%) (Auto) , Monocytes (%) (Auto) , Eosinophils (%) (Auto) , Basophils (%) (Auto) , Neutrophils % (Manual) [Pending], Lymphocytes % (Manual) [Pending], Platelet Estimate [Pending], Platelet Morphology [Pending], Sodium Level 131L, Potassium Level 3.5, Chloride Level 95L, Carbon Dioxide Level 30, Anion Gap 6, Blood Urea Nitrogen 62H, Creatinine 4.1H, Estimat Glomerular Filtration Rate 14.1, Glucose Level 166H, Calcium Level 9.1, Phosphorus Level 5.6H, Magnesium Level 2.3, Total Bilirubin 0.1L, Aspartate Amino Transf (AST/ SGOT) 33, Alanine Aminotransferase (ALT/SGPT) 29, Alkaline Phosphatase 100, C- Reactive Protein, Quantitative 4.1H, Pro-B-Type Natriuretic Peptide 62992S, Total Protein 5.8L, Albumin 2.3L, Globulin 3.5, Albumin/Globulin Ratio 0.7L 11/02/19 06:23: POC Whole Blood Glucose 159H 11/02/19 11:25: POC Whole Blood Glucose [Pending] Current Medications Medications (Trade) Dose Ordered Sig/Cammy Route PRN Reason Start Time Stop Time Status Last Admin Dose Admin Acetaminophen (Tylenol) 650 mg Q6H PRN ORAL Pain Scale (3-5) 10/26/19 13:00 11/23/19 06:59 10/27/19 12:11 Amlodipine Besylate (Norvasc) 5 mg BID ORAL 11/01/19 18:00 11/25/19 08:59 11/02/19 09:11 Atorvastatin Calcium (Lipitor) 10 mg BEDTIME ORAL 10/26/19 21:00 01/21/20 20:59 11/01/19 21:50 Dextrose (Dextrose 50%) 25 ml Q30M PRN IV Hypoglycemia 10/26/19 13:15 01/20/20 21:44 Dextrose (Dextrose 50%) 50 ml Q30M PRN IV Hypoglycemia 10/26/19 13:15 01/20/20 21:44 Docusate Sodium (Colace) 100 mg TID ORAL 10/26/19 18:00 11/22/19 17:59 11/02/19 09:11 Epoetin William (Epoetin William-EPBX(NON ESRD)) 10,000 unit FRI-FRI-FRI SUBQ 10/27/19 21:00 01/25/20 20:59 11/01/19 21:50 Haloperidol (Haldol) 5 mg Q12H PRN ORAL Agitation 10/26/19 12:57 12/10/19 12:56 10/27/19 22:20 Haloperidol Lactate (Haldol) 5 mg Q6H PRN IM Agitation 10/26/19 12:57 12/10/19 12:56 10/28/19 21:06 Hydralazine HCl (Apresoline) 10 mg Q4H PRN IV For High Blood Pressure 10/26/19 13:07 11/2/20 13:06 11/02/19 03:21 Insulin Aspart (NovoLOG) BEFORE MEALS AND HS SUBQ 11/02/19 06:30 01/31/20 06:29 11/02/19 06:46 Lactulose (Cephulac) 10 gm BID ORAL 11/01/19 09:00 12/01/19 08:59 11/02/19 09:11 Levothyroxine Sodium (Synthroid) 50 mcg DAILY IV 10/27/19 09:00 11/23/19 13:59 11/02/19 09:11 Pantoprazole (Protonix) 40 mg EVERY 12 HOURS IVP 10/26/19 21:00 11/22/19 08:59 11/02/19 09:11 Polyethylene Glycol (Miralax) 17 gm BEDTIME ORAL 11/01/19 21:00 12/01/19 20:59 11/01/19 21:50 Rivaroxaban (Xarelto) 15 mg QPM ORAL 10/27/19 16:30 01/25/20 16:29 11/01/19 16:56 Sennosides (Senokot) 8.6 mg HSPRN PRN ORAL Constipation 10/26/19 12:58 11/25/19 12:57 10/27/19 16:20 Sevelamer Carbonate (Renvela) 1,600 mg THREE TIMES A DAY ORAL 10/31/19 18:00 01/21/20 17:59 11/02/19 09:11 Sodium Bicarbonate 50 ml/ Dextrose 1,050 ml @ 50 mls/hr Q21H IV 10/27/19 05:00 11/26/19 04:59 11/02/19 09:07 Vitamin B Complex/ Vit C/Folic Acid (Nephrovite) 1 tab DAILY ORAL 10/27/19 09:00 11/22/19 08:59 11/02/19 09:11 Assessment/Plan Assessment/Plan ASSESSMENT Acute hypoxemic hypercapnic respiratory failure requiring BiPAP Acute metabolic encephalopathy likely due to hypoglycemia Diabetes mellitus with initial hypoglycemia Probably pneumonia Aspiration risk Acute kidney injury on chronic kidney disease, requiring start of HD 10/30 Severe anemia requiring blood transfusion Metabolic acidosis Electrolyte imbalance :hyponatremia, hyperkalemia HTN with HTN urgency Dysphagia Hematuria 2 to pt pulled off his Lyles catheter Possibly DAYANA PLAN OF CARE tele on BiPAP 12/26 FiO2 30% BiPAP likely can be dc, ABG still with hypercapnia, will repeat in am and attempt to titrate O2 to NC with plan to jeep BiPAP at HS and prn patient likely had DAYANA. recommend sleep study as OP titrate FiO2 to keep sat > 90% pulm toilet 10/21 and 10/24 rapid COVID NGT, CXR 10/23 -> 1. Small layering right pleural effusion, not significantly changed. The previously noted small left pleural effusion is not as evident. 2. Prominent lung markings and haziness, right greater left, which may be related to pulmonary vascular congestion versus pneumonitis. This is not significantly changed. 3. Subsegmental atelectasis versus infiltrate in the medial left lung base, also not significantly changed. BiPAP prn abx as per ID recs -> Ceftriaxone , completed 10/30 ; s/p Vanco , completed Rx for PNA 7 days, remains afebrile no leucocytosis BCX 10/21 NGTD UCX NGT SCX if able CXR 10/25 -> stable , no significant change from before Niru Duplex BLE 10/25 -> NGT fup with CXR 10/30 - Mild central vascular congestion, interstitial thickening, slightly improved. Small bilateral pleural effusions have improved. Continued retrocardiac opacification. episode of wheezing per nursing 10/30 afternoon-one dose of Solemedrol given s/p HD 10/30 currently no wheezing will fup with CXR ECHO with pEF 55-60% on chronic a/c with Xarelto ?unclear reason monitor volumes swallow eval with aspiration risk diet texture as per ST recs with strict asp precautions and assistance with meals AMS 10/[address] head negative, off sedatives ammonia WNL NGT inserted for meds as per nephro recs HgA1c -6.1 hold oral anti-glycemic SSI prn ; recommend sensitive SSI initial AMS was most likely due to episode of hypoglycemia CT head NGT for acute ICP x 2 renal US atrophic kidneys, no hydro avoid nephrotoxic s/p Kayexalate and sodium bicarb gentle IVF f/up with nephro recs HD as per nephro, last 11/01 BP management with CCB and Hydralazine prn for BP spikes monitor HH with goal to keep Hgb above 7 stool OB anemia w/up noted , heme on board s/p 1 dose of Venofer on EPO hematuria resolved, Hgb at baseline GI prophayxlis supportive care thanks for a consult! case discussed and evaluated by supervising physician Jonathon Pabon MD 11/03/19 1125: Subjective Allergies: Coded Allergies: PENICILLINS (Verified Allergy, Unknown, 10/25/19) tolerated Ceftriaxone Assessment/Plan Assessment/Plan Patient seen and examined with [employer]UREMENT FORESTER. Agree with above A&P as it reflects our joint deliberations. Reema Hanna NP Nov 02, 2019 11:40 Jonathon Pabon MD Nov 03, 2019 11:25
[2019-11-02 12:00] VITALS: BP 159/55
--- NOTE | 2019-11-02 13:34 | Surgery Progress Note ---
Surgery Progress Note Subjective Procedure Performed Right femoral temporary hemodialysis catheter insertion Additional Comments kub noted ng in place comfortable appearing labs reviewed exam stable Objective Last 24 Hour Vital Signs Date Time Temp Pulse Resp B/P (MAP) Pulse Ox O2 Delivery O2 Flow Rate FiO2 11/02/19 12:00 97.0 18 16 159/55 (89) 99 11/02/19 12:00 59 11/02/19 09:11 63 126/43 11/02/19 09:00 Bi-pap 10.0 Bi-pap 10.0 11/02/19 08:00 96.4 63 16 126/43 (70) 100 11/02/19 08:00 63 11/02/19 07:35 63 16 10 30 11/02/19 07:35 63 16 100 Bi-Pap 30 11/02/19 04:39 63 17 99 30 11/02/19 04:15 98.4 65 20 155/54 (87) 99 11/02/19 04:00 65 11/02/19 03:21 164/70 11/02/19 02:43 68 17 100 30 11/02/19 00:34 70 16 99 30 11/02/19 00:00 66 11/02/19 00:00 98.1 66 20 155/68 (97) 99 11/01/19 22:46 67 17 100 30 11/01/19 21:26 74 19 99 30 11/01/19 21:00 Nasal Cannula 2.0 Nasal Cannula 2.0 11/01/19 20:00 98.1 70 19 150/50 (83) 100 11/01/19 20:00 70 11/01/19 19:55 75 16 98 Bi-Pap 30 11/01/19 19:55 69 18 98 30 11/01/19 17:14 74 152/55 11/01/19 16:19 74 11/01/19 15:51 97.6 76 20 152/55 (87) 99 I&O Intake and Output 11/01/19 11/02/19 19:00 07:00 Output Total 100 ml 400 ml Balance -100 ml -400 ml Output Urine Total 100 ml 400 ml # Voids 1 1 Dressing: other Wound: other Cardiovascular: RSR Respiratory: decreased breath sounds Abdomen: soft, non-tender, present bowel sounds Extremities: no cyanosis Laboratory Tests Test 11/01/19 15:42 11/01/19 15:45 11/01/19 16:01 11/01/19 20:47 Arterial Blood pH 7.331 (7.350-7.450) Arterial Blood Partial Pressure CO2 62.1 mmHg (35.0-45.0) *H Arterial Blood Partial Pressure O2 65.2 mmHg (75.0-100.0) L Arterial Blood HCO3 32.1 mmol/L (22.0-26.0) H Arterial Blood Oxygen Saturation 92.7 % (95-100) L Arterial Blood Base Excess 5.0 (-2-2) H Kristian Test Positive Ammonia 32 umol/L (11-32) POC Whole Blood Glucose 169 MG/DL (74-106) H 189 MG/DL (74-106) H Test 11/02/19 06:03 11/02/19 06:23 11/02/19 11:25 White Blood Count 10.1 K/UL (4.8-10.8) Red Blood Count 2.81 M/UL (4.70-6.10) L Hemoglobin 8.7 G/DL (14.2-18.0) L Hematocrit 27.6 % (42.0-52.0) L Mean Corpuscular Volume 98 FL (80-99) Mean Corpuscular Hemoglobin 31.1 PG (27.0-31.0) H Mean Corpuscular Hemoglobin Concent 31.7 G/DL (32.0-36.0) L Red Cell Distribution Width 15.6 % (11.6-14.8) H Platelet Count 193 K/UL (150-450) Mean Platelet Volume 7.6 FL (6.5-10.1) Neutrophils (%) (Auto) % (45.0-75.0) Lymphocytes (%) (Auto) % (20.0-45.0) Monocytes (%) (Auto) % (1.0-10.0) Eosinophils (%) (Auto) % (0.0-3.0) Basophils (%) (Auto) % (0.0-2.0) Differential Total Cells Counted 100 Neutrophils % (Manual) 91 % (45-75) H Lymphocytes % (Manual) 3 % (20-45) L Monocytes % (Manual) 6 % (1-10) Eosinophils % (Manual) 0 % (0-3) Basophils % (Manual) 0 % (0-2) Band Neutrophils 0 % (0-8) Nucleated Red Blood Cells 3 /100 WBC Platelet Estimate Adequate Platelet Morphology Normal Hypochromasia 2+ Anisocytosis 1+ Macrocytosis 1+ Sodium Level 131 MMOL/L (136-145) L Potassium Level 3.5 MMOL/L (3.5-5.1) Chloride Level 95 MMOL/L (98-107) L Carbon Dioxide Level 30 MMOL/L (21-32) Anion Gap 6 mmol/L (5-15) Blood Urea Nitrogen 62 mg/dL (7-18) H Creatinine 4.1 MG/DL (0.55-1.30) H Estimat Glomerular Filtration Rate 14.1 mL/min (>60) Glucose Level 166 MG/DL (74-106) H Calcium Level 9.1 MG/DL (8.5-10.1) Phosphorus Level 5.6 MG/DL (2.5-4.9) H Magnesium Level 2.3 MG/DL (1.8-2.4) Total Bilirubin 0.1 MG/DL (0.2-1.0) L Aspartate Amino Transf (AST/SGOT) 33 U/L (15-37) Alanine Aminotransferase (ALT/SGPT) 29 U/L (12-78) Alkaline Phosphatase 100 U/L (46-116) C-Reactive Protein, Quantitative 4.1 mg/dL (0.00-0.90) H Pro-B-Type Natriuretic Peptide 16255 pg/mL (0-125) H Total Protein 5.8 G/DL (6.4-8.2) L Albumin 2.3 G/DL (3.4-5.0) L Globulin 3.5 g/dL Albumin/Globulin Ratio 0.7 (1.0-2.7) L POC Whole Blood Glucose 159 MG/DL (74-106) H Pending Plan Problems: (1) Hypercarbia (2) Pleural effusion (3) Chronic renal failure (4) Anemia (5) CHF (congestive heart failure) (6) Bacteremia (7) Cellulitis Assessment & Plan: penile swelling improved no active bleeding reyes av will monitor (8) Hypoglycemia (9) Hyponatremia (10) ATN (acute tubular necrosis) (11) Metabolic acidosis (12) Pneumonia (13) Cellulitis of foot Assessment & Plan: Pt presented on admission with Bilat TMA. Pressure injuries both heels. Stable dry necrosis note to Plantar /lateral L TMA. L Heel is boggy with non- Blanchable erythema. . R Heel Boggy with Non-Blanchable erythema.Haemosiderin with Xerosis skin noted to R and L lower ext. Darker skin tone without erythema , induration or fluctuance Medial L Malleolus. Darker skin tone without erythema or induration noted to sacrum. Tx.Plan: Apply Moisture Barrier Paste to Sacrum. Cover with Optifoam drsg.Change every 3 days and prn. Apply Betadine to eschar plantar/lateral L TMA . Cover with Optifoam drsg. Change every 3 days and prn. Apply Cavilon Skin Barrier to both heels and Malleoli. Cover each site with Optifoam drsg. Change every 7days and prn. Reposition at least every 2hours or as tolerated. Off load heels with pillow.Hx prior amputation prior MRI and plain films reviewed wounds stable and local care being provided no abscess noted cont with dressings elevate heels with pillow turn q2h off load pressure air mattress will follow with recs thank you (14) Osteomyelitis (15) History of hypertension (16) Renal failure (ARF), acute on chronic (17) Acute encephalopathy (18) Diabetes mellitus (19) Hypertension (20) Cholelithiasis Assessment & Plan: US reviewed exam benign asymptomatic cholelithiasis alk phos mild elevated lfts improved trend labs no acute surgical intervention planned Liver: Liver measures 14.8 cm. No intrahepatic bile duct dilation. Gallbladder: Small stone in the gallbladder. No significant gallbladder wall thickening or pericholecystic fluid. Negative sonographic Bianchi's sign. Common bile duct: Normal common bile duct measuring 4.5 mm. No stones. No dilation. Pancreas: Pancreas is not visualized due to overlying bowel gas. Kidneys: Right kidney measures 9.1 cm in length. No hydronephrosis or stone. Left kidney not visualized due to patient's body habitus. Spleen: Spleen measures 9.4 cm. No focal lesion. Aorta: Visualized portions of the aorta are grossly unremarkable. The mid and distal portions are obscured by bowel gas. Inferior vena cava: Unremarkable. Free fluid: No ascites. Tubes, lines and devices: Reyes catheter in a decompressed bladder. IMPRESSION: Small stone in the gallbladder. No significant gallbladder wall thickening or pericholecystic fluid. Negative sonographic Bianchi's sign. Mariusz Diehl Nov 02, 2019 13:34
[2019-11-02 16:00] VITALS: BP 157/46
[2019-11-02] MEDS ORDERED: Sennosides 8.6mg tab NG PRN (16:15)
[2019-11-02] MEDS ORDERED: Acetaminophen 650mg/20.3ml NG PRN (16:22)
[2019-11-02] MEDS ORDERED: Eliquis 2.5mg tablet ORAL SCH (18:00)
[2019-11-02] MEDS: Docusate 100mg/10ml Liq NG SCH (18:16)
[2019-11-02] MEDS: Lactulose 10gm/15ml UDC NG SCH (18:16)
[2019-11-02] MEDS: Eliquis 2.5mg tablet NG SCH (18:19)
[2019-11-02] MEDS: Renvela 800mg Pkt NG SCH (18:19)
[2019-11-02 20:00] VITALS: BP 158/50
[2019-11-02] MEDS ORDERED: Dyna-Hex 2% Top Sol 2oz TOPIC SCH (20:00)
[2019-11-02] MEDS ORDERED: Miralax 17gm pkt NG SCH (21:00)
--- NOTE | 2019-11-02 23:12 | Psych Consult Progress Note ---
Psychiatry Progress Note Psychiatry Progress Note Subjective the pt has episodes o agitations disoriented Medications Current Medications Medications (Trade) Dose Ordered Sig/Cammy Route PRN Reason Start Time Stop Time Status Last Admin Dose Admin Acetaminophen (Tylenol) 650 mg Q6H PRN NG Pain 3-5 11/02/19 16:22 12/02/19 16:21 Amlodipine Besylate (Norvasc) 5 mg BID NG 11/02/19 18:00 11/25/19 08:59 11/02/19 18:16 Apixaban (Eliquis) 2.5 mg BID NG 11/02/19 18:00 01/31/20 17:59 11/02/19 18:19 Atorvastatin Calcium (Lipitor) 10 mg BEDTIME NG 11/02/19 21:00 01/21/20 20:59 11/02/19 20:37 Chlorhexidine Gluconate (Yi-Hex 2%) 1 applic DAILY@1999 TOPIC 11/02/19 20:00 01/31/20 19:59 11/02/19 20:37 Dextrose (Dextrose 50%) 25 ml Q30M PRN IV Hypoglycemia 10/26/19 13:15 01/20/20 21:44 Dextrose (Dextrose 50%) 50 ml Q30M PRN IV Hypoglycemia 10/26/19 13:15 01/20/20 21:44 Docusate Sodium (Colace) 100 mg THREE TIMES A DAY NG 11/02/19 18:00 12/02/19 17:59 11/02/19 18:16 Epoetin William (Epoetin William-EPBX(NON ESRD)) 10,000 unit FRI-FRI-FRI SUBQ 10/27/19 21:00 01/25/20 20:59 11/01/19 21:50 Haloperidol (Haldol) 5 mg Q12H PRN NG Agitation 11/02/19 16:15 12/17/19 16:14 Haloperidol Lactate (Haldol) 5 mg Q6H PRN IM Agitation 10/26/19 12:57 12/10/19 12:56 10/28/19 21:06 Hydralazine HCl (Apresoline) 10 mg Q4H PRN IV For High Blood Pressure 10/26/19 13:07 01/24/20 13:06 11/02/19 03:21 Insulin Aspart (NovoLOG) BEFORE MEALS AND HS SUBQ 11/02/19 06:30 01/31/20 06:29 11/02/19 06:46 Lactulose (Cephulac) 10 gm BID NG 11/02/19 18:00 12/01/19 08:59 11/02/19 18:16 Levothyroxine Sodium (Synthroid) 50 mcg DAILY IV 10/27/19 09:00 11/23/19 13:59 11/02/19 09:11 Pantoprazole (Protonix) 40 mg EVERY 12 HOURS IVP 10/26/19 21:00 11/22/19 08:59 11/02/19 20:37 Polyethylene Glycol (Miralax) 17 gm BEDTIME NG 11/02/19 21:00 12/01/19 20:59 11/02/19 20:37 Sennosides (Senokot) 8.6 mg HSPRN PRN NG Constipation 11/02/19 16:15 12/02/19 16:14 Sevelamer Carbonate (Renvela) 1,600 mg THREE TIMES A DAY NG 11/02/19 18:00 01/21/20 17:59 11/02/19 18:19 Sodium Bicarbonate 50 ml/ Dextrose 1,050 ml @ 50 mls/hr Q21H IV 10/27/19 05:00 11/26/19 04:59 11/02/19 09:07 Vitamin B Complex/ Vit C/Folic Acid (Nephrovite) 1 tab DAILY NG 11/03/19 09:00 11/22/19 08:59 Neurological/Psychiatric: Denies: no symptoms, anxiety, depressed, emotional problems, headache, numbness, paresthesia, pre-existing deficit, seizure, tingling, tremors, weakness, other Allergies: Coded Allergies: PENICILLINS (Verified Allergy, Unknown, 10/25/19) tolerated Ceftriaxone Objective Data Height (Feet): 5 Height (Inches): 8.00 Weight (Pounds): 198 General Appearance: no apparent distress, alert Appearance: no abnormalities noted Behavior Mannerisms: good eye contact Mental Status Exam - Affect: blunted Mental Status Exam - Mood: anxious, agitated Mental Status Exam - Thought P: tangential, confusion Mental Status Exam - Thought C: delusions (specify) Mental Status Exam - Suicidal: not present Additional Comments: awake, confused, and disoriented. Mood is agitated. Affect is flat. Thought process, there is a paucity of thought content. Thought content, no suicidal or homicidal ideation. Cognition is impaired. Insight and judgment impaired. Assessment/Plan Assessment/Plan: 1. Dementia with behavior disturbance. 2. Acute encephalopathy. PLAN: 1. We will continue the Haldol IM 2. Discussed with the nurse. Dada Finch MD Nov 02, 2019 23:12
[2019-11-03] VITALS: BP 153/46
[2019-11-03 04:00] VITALS: BP 131/44
[2019-11-03 04:36] LABS: HEMATOCRIT 28.2 % (42.0-52.0); HEMOGLOBIN 8.7 G/DL (14.2-18.0); MEAN CORPUSCULAR VOLUME 98 FL (80-99); PLATELET COUNT 160 K/UL (150-450); RED BLOOD COUNT 2.87 M/UL (4.70-6.10); RED CELL DISTRIBUTION WIDTH 15.4 % (11.6-14.8)
[2019-11-03] MEDS: Sodium Bicarbonate 50 ML in D5W 1000ml 1,000 ML IV SCH (04:57)
[2019-11-03] MEDS: NovoLOG Insulin Flexpen SUBQ SCH ×5 (05:01→21:11)
[2019-11-03 05:26] LABS: ALANINE AMINOTRANSFERASE 28 U/L (12-78); ALBUMIN 2.2 G/DL (3.4-5.0); ALBUMIN/GLOBULIN RATIO 0.6 (1.0-2.7); ALKALINE PHOSPHATASE 90 U/L (46-116); ANION GAP 4 mmol/L (5-15); ASPARTATE AMINO TRANSFERASE 30 U/L (15-37); BILIRUBIN,TOTAL 0.3 MG/DL (0.2-1.0); BLOOD UREA NITROGEN 60 mg/dL (7-18); CALCIUM 8.7 MG/DL (8.5-10.1); CARBON DIOXIDE 33 MMOL/L (21-32); CHLORIDE 95 MMOL/L (98-107); CREATININE 4.2 MG/DL (0.55-1.30); PHOSPHORUS 4.7 MG/DL (2.5-4.9); POTASSIUM 3.2 MMOL/L (3.5-5.1); SODIUM 132 MMOL/L (136-145)
--- NOTE | 2019-11-03 07:18 | Infectious Diseases Prog Note ---
Assessment/Plan 79yo M from SNF who p/w hypoglycemia and resp failure: Acute hypoxic respiratory failure, on BiPAP > 2L NC> RA > 2L NC Rapid COVID neg x2 (10/21, 10/24) Pneumonia on CXR Volume overload 10/30 CXR: Slightly improved 10/25 CXR: Bilateral alveolar densities are unchanged 10/24 Sp cx normal resp dmeario (prelim) 10/23 CXR: 1. Small layering right pleural effusion, not significantly changed. The previously noted small left pleural effusion is not as evident.Prominent lung markings and haziness, right greater left, which may be related to pulmonary vascular congestion versus pneumonitis. This is not significantly changed.. Subsegmental atelectasis versus infiltrate in the medial left lung base, also not significantly changed. 10/21 CXR: 1. Small bilateral pleural effusions. Bibasilar atelectasis versus pneumonia. 2. Prominent lung markings and hazy opacities in right greater than left lungs may represent artifact versus pulmonary vasculature congestion and edema versus infectious/inflammatory process. 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 10/31 No clear clinical correlate to this imaging finding, s/p 7 days of CTX which is good abx for mastoiditis Hypercapnia, ongoing; on BiPAP Afebrile No leukocytosis Anemia to 6.8, improved UA neg, UCx neg R/o bacteremia 10/21 BCx NTD ALEXIS on CKD, worsening --> now on HD HBsAg neg Plan: Cont to monitor off abx, s/p 7d of abx for pna, but this also covered for possible mastoiditis ENT to evaluate ears/TMs for signs of underlying mastoiditis, as seen on CT head Appreciate Pulm input on ongoing resp failure, less likely 2/2 infection given s /p abx and lack of fever or leukocytosis 10/31 SP CTX #7 8/ SP vancomycin IV #5 Trend resp status Monitor CBC, CMP D/w RN Thank you for this consult. [facility] will continue to follow. Subjective Allergies: Coded Allergies: PENICILLINS (Verified Allergy, Unknown, 10/25/19) tolerated Ceftriaxone AF WBC 9 NAD On BiPAP Objective Last 24 Hour Vital Signs Date Time Temp Pulse Resp B/P (MAP) Pulse Ox O2 Delivery O2 Flow Rate FiO2 11/03/19 04:00 97.0 20 20 131/44 (73) 99 11/03/19 04:00 55 11/03/19 03:08 58 17 99 30 11/03/19 00:55 61 16 100 30 11/03/19 00:00 62 11/03/19 00:00 96.5 21 21 153/46 (81) 99 11/02/19 22:42 63 18 100 30 11/02/19 21:09 59 17 99 30 11/02/19 21:00 Bi-pap 12.0 Bi-pap 12.0 11/02/19 20:00 96.3 20 20 158/50 (86) 95 11/02/19 20:00 58 11/02/19 19:04 65 19 100 30 11/02/19 19:02 65 19 100 Bi-Pap 30 11/02/19 18:16 63 157/46 11/02/19 16:43 63 17 99 30 11/02/19 16:00 97.9 20 20 157/46 (83) 99 11/02/19 16:00 58 11/02/19 14:50 59 17 99 30 11/02/19 12:30 61 16 99 30 11/02/19 12:00 97.0 18 16 159/55 (89) 99 11/02/19 12:00 59 11/02/19 11:30 69 16 99 30 11/02/19 09:11 63 126/43 11/02/19 09:09 62 20 99 30 11/02/19 09:00 Bi-pap 10.0 Bi-pap 10.0 11/02/19 08:00 96.4 63 16 126/43 (70) 100 11/02/19 08:00 63 11/02/19 07:35 63 16 10 30 11/02/19 07:35 63 16 100 Bi-Pap 30 Height (Feet): 5 Height (Inches): 8.00 Weight (Pounds): 195 Gen: Older man, NAD in bed CV: RRR Pulm: CTAB anteriorly on BiPAP Abd: Soft, NTND Laboratory Tests Test 11/02/19 11:25 11/02/19 13:32 11/02/19 17:19 11/02/19 20:02 POC Whole Blood Glucose Pending 148 MG/DL (74-106) H 161 MG/DL (74-106) H Arterial Blood pH 7.357 (7.350-7.450) Arterial Blood Partial Pressure CO2 57.2 mmHg (35.0-45.0) *H Arterial Blood Partial Pressure O2 89.1 mmHg (75.0-100.0) Arterial Blood HCO3 31.4 mmol/L (22.0-26.0) H Arterial Blood Oxygen Saturation 96.4 % (95-100) Arterial Blood Base Excess 4.9 (-2-2) H Kristian Test Positive Test 11/03/19 02:45 11/03/19 04:00 11/03/19 04:58 11/03/19 06:59 POC Whole Blood Glucose 179 MG/DL (74-106) H 170 MG/DL (74-106) H White Blood Count 9.0 K/UL (4.8-10.8) Red Blood Count 2.87 M/UL (4.70-6.10) L Hemoglobin 8.7 G/DL (14.2-18.0) L Hematocrit 28.2 % (42.0-52.0) L Mean Corpuscular Volume 98 FL (80-99) Mean Corpuscular Hemoglobin 30.5 PG (27.0-31.0) Mean Corpuscular Hemoglobin Concent 31.0 G/DL (32.0-36.0) L Red Cell Distribution Width 15.4 % (11.6-14.8) H Platelet Count 160 K/UL (150-450) Mean Platelet Volume 8.2 FL (6.5-10.1) Neutrophils (%) (Auto) % (45.0-75.0) Lymphocytes (%) (Auto) % (20.0-45.0) Monocytes (%) (Auto) % (1.0-10.0) Eosinophils (%) (Auto) % (0.0-3.0) Basophils (%) (Auto) % (0.0-2.0) Sodium Level 132 MMOL/L (136-145) L Potassium Level 3.2 MMOL/L (3.5-5.1) L Chloride Level 95 MMOL/L (98-107) L Carbon Dioxide Level 33 MMOL/L (21-32) H Anion Gap 4 mmol/L (5-15) L Blood Urea Nitrogen 60 mg/dL (7-18) H Creatinine 4.2 MG/DL (0.55-1.30) H Estimat Glomerular Filtration Rate 13.7 mL/min (>60) Glucose Level 173 MG/DL (74-106) H Calcium Level 8.7 MG/DL (8.5-10.1) Phosphorus Level 4.7 MG/DL (2.5-4.9) Magnesium Level 2.3 MG/DL (1.8-2.4) Total Bilirubin 0.3 MG/DL (0.2-1.0) Aspartate Amino Transf (AST/SGOT) 30 U/L (15-37) Alanine Aminotransferase (ALT/SGPT) 28 U/L (12-78) Alkaline Phosphatase 90 U/L (46-116) C-Reactive Protein, Quantitative 2.8 mg/dL (0.00-0.90) H Total Protein 5.6 G/DL (6.4-8.2) L Albumin 2.2 G/DL (3.4-5.0) L Globulin 3.4 g/dL Albumin/Globulin Ratio 0.6 (1.0-2.7) L Arterial Blood pH 7.343 (7.350-7.450) Arterial Blood Partial Pressure CO2 59.3 mmHg (35.0-45.0) *H Arterial Blood Partial Pressure O2 81.7 mmHg (75.0-100.0) Arterial Blood HCO3 31.5 mmol/L (22.0-26.0) H Arterial Blood Oxygen Saturation 95.7 % (95-100) Arterial Blood Base Excess 4.8 (-2-2) H Kristian Test Positive Current Medications Medications (Trade) Dose Ordered Sig/Cammy Route PRN Reason Start Time Stop Time Status Last Admin Dose Admin Acetaminophen (Tylenol) 650 mg Q6H PRN NG Pain 3-5 11/02/19 16:22 12/02/19 16:21 Amlodipine Besylate (Norvasc) 5 mg BID NG 11/02/19 18:00 11/25/19 08:59 11/02/19 18:16 Apixaban (Eliquis) 2.5 mg BID NG 11/02/19 18:00 01/31/20 17:59 11/02/19 18:19 Atorvastatin Calcium (Lipitor) 10 mg BEDTIME NG 11/02/19 21:00 01/21/20 20:59 11/02/19 20:37 Chlorhexidine Gluconate (Yi-Hex 2%) 1 applic DAILY@1999 TOPIC 11/02/19 20:00 01/31/20 19:59 11/02/19 20:37 Dextrose (Dextrose 50%) 25 ml Q30M PRN IV Hypoglycemia 10/26/19 13:15 01/20/20 21:44 Dextrose (Dextrose 50%) 50 ml Q30M PRN IV Hypoglycemia 10/26/19 13:15 01/20/20 21:44 Docusate Sodium (Colace) 100 mg THREE TIMES A DAY NG 11/02/19 18:00 12/02/19 17:59 11/02/19 18:16 Epoetin William (Epoetin William-EPBX(NON ESRD)) 10,000 unit FRI-FRI-FRI SUBQ 10/27/19 21:00 01/25/20 20:59 11/01/19 21:50 Haloperidol (Haldol) 5 mg Q12H PRN NG Agitation 11/02/19 16:15 12/17/19 16:14 Haloperidol Lactate (Haldol) 5 mg Q6H PRN IM Agitation 10/26/19 12:57 12/10/19 12:56 10/28/19 21:06 Hydralazine HCl (Apresoline) 10 mg Q4H PRN IV For High Blood Pressure 10/26/19 13:07 01/24/20 13:06 11/02/19 03:21 Insulin Aspart (NovoLOG) BEFORE MEALS AND HS SUBQ 11/02/19 06:30 01/31/20 06:29 11/02/19 06:46 Lactulose (Cephulac) 10 gm BID NG 11/02/19 18:00 12/01/19 08:59 11/02/19 18:16 Levothyroxine Sodium (Synthroid) 50 mcg DAILY IV 10/27/19 09:00 11/23/19 13:59 11/02/19 09:11 Pantoprazole (Protonix) 40 mg EVERY 12 HOURS IVP 10/26/19 21:00 11/22/19 08:59 11/02/19 20:37 Polyethylene Glycol (Miralax) 17 gm BEDTIME NG 11/02/19 21:00 12/01/19 20:59 11/02/19 20:37 Potassium Chloride 100 ml @ 50 mls/hr ONCE ONCE IVPB 11/03/19 08:00 11/03/19 09:59 Sennosides (Senokot) 8.6 mg HSPRN PRN NG Constipation 11/02/19 16:15 12/02/19 16:14 Sevelamer Carbonate (Renvela) 1,600 mg THREE TIMES A DAY NG 11/02/19 18:00 01/21/20 17:59 11/02/19 18:19 Sodium Bicarbonate 50 ml/ Dextrose 1,050 ml @ 50 mls/hr Q21H IV 10/27/19 05:00 11/26/19 04:59 11/03/19 04:57 Vitamin B Complex/ Vit C/Folic Acid (Nephrovite) 1 tab DAILY NG 11/03/19 09:00 11/22/19 08:59 Mckenna Diallo M.D. Nov 03, 2019 07:18
[2019-11-03 08:00] VITALS: BP 155/49
[2019-11-03] MEDS: Renvela 800mg Pkt NG SCH ×3 (08:18→18:19)
[2019-11-03] MEDS: Eliquis 2.5mg tablet NG SCH ×2 (08:18→18:25)
[2019-11-03] MEDS: Pantoprazole Inj IVP SCH ×2 (08:18→21:02)
[2019-11-03] MEDS: Docusate 100mg/10ml Liq NG SCH ×3 (08:19→18:19)
[2019-11-03] MEDS: Lactulose 10gm/15ml UDC NG SCH ×2 (08:19→18:19)
--- NOTE | 2019-11-03 08:26 | General Progress Note ---
Assessment/Plan Problem List: (1) Hypertension ICD Codes: I10 - Essential (primary) hypertension SNOMED: 14043774 (2) Diabetes mellitus ICD Codes: E11.9 - Type 2 diabetes mellitus without complications SNOMED: 79781567 (3) Anemia ICD Codes: D64.9 - Anemia, unspecified SNOMED: 301670625 (4) Cholelithiasis ICD Codes: K80.20 - Calculus of gallbladder without cholecystitis without obstruction SNOMED: 479589512 (5) CHF (congestive heart failure) ICD Codes: I50.9 - Heart failure, unspecified SNOMED: 73481709 Assessment/Plan: patient on Xerallto stool ob positive but no overt GIB patient on BIPAP and not stable for GI procedures at this time stable H&H s/p one unit PRBC fu cbc repeat stool ob ppi bid GI procedures when patient is more stable bowel regimen management of hyponatremia per nephrology Subjective ROS Limited/Unobtainable: No Allergies: Coded Allergies: PENICILLINS (Verified Allergy, Unknown, 10/25/19) tolerated Ceftriaxone Objective Last 24 Hour Vital Signs Date Time Temp Pulse Resp B/P (MAP) Pulse Ox O2 Delivery O2 Flow Rate FiO2 11/03/19 08:21 58 155/49 11/03/19 06:50 58 20 100 Bi-Pap 30 11/03/19 06:50 58 20 100 30 11/03/19 04:00 97.0 20 20 131/44 (73) 99 11/03/19 04:00 55 11/03/19 03:08 58 17 99 30 11/03/19 00:55 61 16 100 30 11/03/19 00:00 62 11/03/19 00:00 96.5 21 21 153/46 (81) 99 11/02/19 22:42 63 18 100 30 11/02/19 21:09 59 17 99 30 11/02/19 21:00 Bi-pap 12.0 Bi-pap 12.0 11/02/19 20:00 96.3 20 20 158/50 (86) 95 11/02/19 20:00 58 11/02/19 19:04 65 19 100 30 11/02/19 19:02 65 19 100 Bi-Pap 30 11/02/19 18:16 63 157/46 11/02/19 16:43 63 17 99 30 11/02/19 16:00 97.9 20 20 157/46 (83) 99 11/02/19 16:00 58 11/02/19 14:50 59 17 99 30 11/02/19 12:30 61 16 99 30 11/02/19 12:00 97.0 18 16 159/55 (89) 99 11/02/19 12:00 59 11/02/19 11:30 69 16 99 30 11/02/19 09:11 63 126/43 11/02/19 09:09 62 20 99 30 11/02/19 09:00 Bi-pap 10.0 Bi-pap 10.0 Intake and Output 11/02/19 11/03/19 19:00 07:00 Intake Total 50 ml 550 ml Output Total 150 ml 200 ml Balance -100 ml 350 ml IV Total 50 ml 550 ml Output Urine Total 150 ml 200 ml Laboratory Tests 11/02/19 11:25: POC Whole Blood Glucose [Pending] 11/02/19 13:32: Arterial Blood pH 7.357, Arterial Blood Partial Pressure CO2 57.2*H, Arterial Blood Partial Pressure O2 89.1, Arterial Blood HCO3 31.4H, Arterial Blood Oxygen Saturation 96.4, Arterial Blood Base Excess 4.9H, Kristian Test Positive 11/02/19 17:19: POC Whole Blood Glucose 148H 11/02/19 20:02: POC Whole Blood Glucose 161H 11/03/19 02:45: POC Whole Blood Glucose 179H 11/03/19 04:00: White Blood Count 9.0, Red Blood Count 2.87L, Hemoglobin 8.7L, Hematocrit 28.2L , Mean Corpuscular Volume 98, Mean Corpuscular Hemoglobin 30.5, Mean Corpuscular Hemoglobin Concent 31.0L, Red Cell Distribution Width 15.4H, Platelet Count 160, Mean Platelet Volume 8.2, Neutrophils (%) (Auto) , Lymphocytes (%) (Auto) , Monocytes (%) (Auto) , Eosinophils (%) (Auto) , Basophils (%) (Auto) , Sodium Level 132L, Potassium Level 3.2L, Chloride Level 95L, Carbon Dioxide Level 33H, Anion Gap 4L, Blood Urea Nitrogen 60H, Creatinine 4.2H, Estimat Glomerular Filtration Rate 13.7, Glucose Level 173H, Calcium Level 8.7, Phosphorus Level 4.7, Magnesium Level 2.3, Total Bilirubin 0.3, Aspartate Amino Transf (AST/SGOT) 30, Alanine Aminotransferase (ALT/SGPT) 28, Alkaline Phosphatase 90, C-Reactive Protein, Quantitative 2.8H, Total Protein 5.6L, Albumin 2.2L, Globulin 3.4, Albumin/Globulin Ratio 0.6L 11/03/19 04:58: POC Whole Blood Glucose 170H 11/03/19 06:59: Arterial Blood pH 7.343L, Arterial Blood Partial Pressure CO2 59.3*H, Arterial Blood Partial Pressure O2 81.7, Arterial Blood HCO3 31.5H, Arterial Blood Oxygen Saturation 95.7, Arterial Blood Base Excess 4.8H, Kristian Test Positive Height (Feet): 5 Height (Inches): 8.00 Weight (Pounds): 195 General Appearance: alert EENT: normal ENT inspection Neck: supple Cardiovascular: normal rate Respiratory/Chest: decreased breath sounds Abdomen: normal bowel sounds, non tender, soft Extremities: non-tender Lawrence Humphreys MD Nov 03, 2019 08:26
[2019-11-03] MEDS ORDERED: Nephrovite tab (Rena-Vite) NG SCH (09:00)
--- NOTE | 2019-11-03 09:25 | Pulmonology Progress Note ---
Reema Hanna DIRECTOR HYDROGEN STORAGE ENGINEERING 11/03/19 0924: Subjective ROS Limited/Unobtainable: No Allergies: Coded Allergies: PENICILLINS (Verified Allergy, Unknown, 10/25/19) tolerated Ceftriaxone Subjective since 10/31 appeared less alert and responsive ABG was done- hyperpnea restarted on BiPAP CT head negative ammonia WNL remains on BiPAP, ABG this am still with hypercapnia on 02/25 s/p HD 11/01 NG tube inserted as per nephro recs remains afebrile, no leukocytosis Objective Last 24 Hour Vital Signs Date Time Temp Pulse Resp B/P (MAP) Pulse Ox O2 Delivery O2 Flow Rate FiO2 11/03/19 08:21 58 155/49 11/03/19 08:00 97.4 58 16 155/49 (84) 100 11/03/19 06:50 58 20 100 Bi-Pap 30 11/03/19 06:50 58 20 100 30 11/03/19 04:00 97.0 20 20 131/44 (73) 99 11/03/19 04:00 55 11/03/19 03:08 58 17 99 30 11/03/19 00:55 61 16 100 30 11/03/19 00:00 62 11/03/19 00:00 96.5 21 21 153/46 (81) 99 11/02/19 22:42 63 18 100 30 11/02/19 21:09 59 17 99 30 11/02/19 21:00 Bi-pap 12.0 Bi-pap 12.0 11/02/19 20:00 96.3 20 20 158/50 (86) 95 11/02/19 20:00 58 11/02/19 19:04 65 19 100 30 11/02/19 19:02 65 19 100 Bi-Pap 30 11/02/19 18:16 63 157/46 11/02/19 16:43 63 17 99 30 11/02/19 16:00 97.9 20 20 157/46 (83) 99 11/02/19 16:00 58 11/02/19 14:50 59 17 99 30 11/02/19 12:30 61 16 99 30 11/02/19 12:00 97.0 18 16 159/55 (89) 99 11/02/19 12:00 59 11/02/19 11:30 69 16 99 30 Intake and Output 11/02/19 11/03/19 19:00 07:00 Intake Total 50 ml 550 ml Output Total 150 ml 200 ml Balance -100 ml 350 ml IV Total 50 ml 550 ml Output Urine Total 150 ml 200 ml Objective General Appearance: no apparent distress, [place] speaking confused male, on BiPAP 02/25 FiO2 30% Lines, tubes and drains: R femoral HEENT: normocephalic, atraumatic, anicteric, mucous membranes moist, BiPAP mask on , NGT Respiratory/Chest: few scattered crackles, no exp wheezing, Cardiovascular/Chest: normal rate, regular rhythm Abdomen: normal bowel sounds, non tender, soft Extremities: partially amputated BL foot Skin Exam: warm/dry Neurologic: abnormal gait, not much responsive, Musculoskeletal: atrophy BLE Laboratory Tests 11/02/19 11:25: POC Whole Blood Glucose [Pending] 11/02/19 13:32: Arterial Blood pH 7.357, Arterial Blood Partial Pressure CO2 57.2*H, Arterial Blood Partial Pressure O2 89.1, Arterial Blood HCO3 31.4H, Arterial Blood Oxygen Saturation 96.4, Arterial Blood Base Excess 4.9H, Kristian Test Positive 11/02/19 17:19: POC Whole Blood Glucose 148H 11/02/19 20:02: POC Whole Blood Glucose 161H 11/03/19 02:45: POC Whole Blood Glucose 179H 11/03/19 04:00: White Blood Count 9.0, Red Blood Count 2.87L, Hemoglobin 8.7L, Hematocrit 28.2L , Mean Corpuscular Volume 98, Mean Corpuscular Hemoglobin 30.5, Mean Corpuscular Hemoglobin Concent 31.0L, Red Cell Distribution Width 15.4H, Platelet Count 160, Mean Platelet Volume 8.2, Neutrophils (%) (Auto) , Lymphocytes (%) (Auto) , Monocytes (%) (Auto) , Eosinophils (%) (Auto) , Basophils (%) (Auto) , Sodium Level 132L, Potassium Level 3.2L, Chloride Level 95L, Carbon Dioxide Level 33H, Anion Gap 4L, Blood Urea Nitrogen 60H, Creatinine 4.2H, Estimat Glomerular Filtration Rate 13.7, Glucose Level 173H, Calcium Level 8.7, Phosphorus Level 4.7, Magnesium Level 2.3, Total Bilirubin 0.3, Aspartate Amino Transf (AST/SGOT) 30, Alanine Aminotransferase (ALT/SGPT) 28, Alkaline Phosphatase 90, C-Reactive Protein, Quantitative 2.8H, Total Protein 5.6L, Albumin 2.2L, Globulin 3.4, Albumin/Globulin Ratio 0.6L 11/03/19 04:58: POC Whole Blood Glucose 170H 11/03/19 06:59: Arterial Blood pH 7.343L, Arterial Blood Partial Pressure CO2 59.3*H, Arterial Blood Partial Pressure O2 81.7, Arterial Blood HCO3 31.5H, Arterial Blood Oxygen Saturation 95.7, Arterial Blood Base Excess 4.8H, Kristian Test Positive Current Medications Medications (Trade) Dose Ordered Sig/Cammy Route PRN Reason Start Time Stop Time Status Last Admin Dose Admin Acetaminophen (Tylenol) 650 mg Q6H PRN NG Pain 3-5 11/02/19 16:22 12/02/19 16:21 Amlodipine Besylate (Norvasc) 5 mg BID NG 11/02/19 18:00 11/25/19 08:59 11/03/19 08:21 Apixaban (Eliquis) 2.5 mg BID NG 11/02/19 18:00 01/31/20 17:59 11/03/19 08:18 Atorvastatin Calcium (Lipitor) 10 mg BEDTIME NG 11/02/19 21:00 01/21/20 20:59 11/02/19 20:37 Chlorhexidine Gluconate (Yi-Hex 2%) 1 applic DAILY@1999 TOPIC 11/02/19 20:00 01/31/20 19:59 11/02/19 20:37 Dextrose (Dextrose 50%) 25 ml Q30M PRN IV Hypoglycemia 10/26/19 13:15 01/20/20 21:44 Dextrose (Dextrose 50%) 50 ml Q30M PRN IV Hypoglycemia 10/26/19 13:15 01/20/20 21:44 Docusate Sodium (Colace) 100 mg THREE TIMES A DAY NG 11/02/19 18:00 12/02/19 17:59 11/03/19 08:19 Epoetin William (Epoetin William-EPBX(NON ESRD)) 10,000 unit FRI-FRI-FRI SUBQ 10/27/19 21:00 01/25/20 20:59 11/01/19 21:50 Haloperidol (Haldol) 5 mg Q12H PRN NG Agitation 11/02/19 16:15 12/17/19 16:14 Haloperidol Lactate (Haldol) 5 mg Q6H PRN IM Agitation 10/26/19 12:57 12/10/19 12:56 10/28/19 21:06 Hydralazine HCl (Apresoline) 10 mg Q4H PRN IV For High Blood Pressure 10/26/19 13:07 01/24/20 13:06 11/02/19 03:21 Insulin Aspart (NovoLOG) BEFORE MEALS AND HS SUBQ 11/02/19 06:30 01/31/20 06:29 11/02/19 06:46 Lactulose (Cephulac) 10 gm BID NG 11/02/19 18:00 12/01/19 08:59 11/03/19 08:19 Levothyroxine Sodium (Synthroid) 50 mcg DAILY IV 10/27/19 09:00 11/23/19 13:59 11/03/19 08:19 Pantoprazole (Protonix) 40 mg EVERY 12 HOURS IVP 10/26/19 21:00 11/22/19 08:59 11/03/19 08:18 Polyethylene Glycol (Miralax) 17 gm BEDTIME NG 11/02/19 21:00 12/01/19 20:59 11/02/19 20:37 Potassium Chloride 100 ml @ 50 mls/hr ONCE ONCE IVPB 11/03/19 08:00 11/03/19 09:59 11/03/19 08:20 Sennosides (Senokot) 8.6 mg HSPRN PRN NG Constipation 11/02/19 16:15 12/02/19 16:14 Sevelamer Carbonate (Renvela) 1,600 mg THREE TIMES A DAY NG 11/02/19 18:00 01/21/20 17:59 11/03/19 08:18 Sodium Bicarbonate 50 ml/ Dextrose 1,050 ml @ 50 mls/hr Q21H IV 10/27/19 05:00 11/26/19 04:59 11/03/19 04:57 Vitamin B Complex/ Vit C/Folic Acid (Nephrovite) 1 tab DAILY NG 11/03/19 09:00 11/22/19 08:59 11/03/19 08:18 Assessment/Plan Assessment/Plan ASSESSMENT Acute hypoxemic hypercapnic respiratory failure requiring BiPAP Acute metabolic encephalopathy likely due to hypoglycemia Diabetes mellitus with initial hypoglycemia Probably pneumonia Aspiration risk Acute kidney injury on chronic kidney disease, requiring start of HD 10/30 Severe anemia requiring blood transfusion Metabolic acidosis Electrolyte imbalance :hyponatremia, hyperkalemia HTN with HTN urgency Dysphagia Hematuria 2 to pt pulled off his Lyles catheter Possibly DAYANA PLAN OF CARE tele now on BiPAP 02/25 FiO2 30% ( settings increased from 12/26 to 12/5 11/01) ABG still with hypercapnia, will repeat in am and attempt to titrate O2 to NC with plan to jeep BiPAP at HS and prn patient likely had DAYANA. recommend sleep study as OP titrate FiO2 to keep sat > 90% pulm toilet 10/21 and 10/24 rapid COVID NGT, CXR 10/23 -> 1. Small layering right pleural effusion, not significantly changed. The previously noted small left pleural effusion is not as evident. 2. Prominent lung markings and haziness, right greater left, which may be related to pulmonary vascular congestion versus pneumonitis. This is not significantly changed. 3. Subsegmental atelectasis versus infiltrate in the medial left lung base, also not significantly changed. BiPAP prn abx as per ID recs -> Ceftriaxone , completed 10/30 ; s/p Vanco , completed Rx for PNA 7 days, remains afebrile no leucocytosis BCX 10/21 NGTD UCX NGT SCX if able CXR 10/25 -> stable , no significant change from before Niru Duplex BLE 10/25 -> NGT fup with CXR 10/30 - Mild central vascular congestion, interstitial thickening, slightly improved. Small bilateral pleural effusions have improved. Continued retrocardiac opacification. episode of wheezing per nursing 10/30 afternoon-one dose of Solemedrol given s/p HD 10/30 currently no wheezing will fup with CXR ECHO with pEF 55-60% on chronic a/c with Xarelto ?unclear reason monitor volumes swallow eval with aspiration risk diet texture as per ST recs with strict asp precautions and assistance with meals AMS 10/[address] head negative, off sedatives ammonia WNL NGT inserted for meds as per nephro recs NEED NEURO EVAL-per primary HgA1c -6.1 hold oral anti-glycemic SSI prn ; recommend sensitive SSI initial AMS was most likely due to episode of hypoglycemia CT head NGT for acute ICP x 2 renal US atrophic kidneys, no hydro avoid nephrotoxic s/p Kayexalate and sodium bicarb gentle IVF f/up with nephro recs HD as per nephro, last 11/01 BP management with CCB and Hydralazine prn for BP spikes monitor HH with goal to keep Hgb above 7 stool OB anemia w/up noted , heme on board s/p 1 dose of Venofer on EPO hematuria resolved, Hgb at baseline GI prophayxlis supportive care thanks for a consult! case discussed and evaluated by supervising physician Jonathon Pabon MD 11/03/19 1126: Subjective Allergies: Coded Allergies: PENICILLINS (Verified Allergy, Unknown, 10/25/19) tolerated Ceftriaxone Assessment/Plan Assessment/Plan Patient seen and examined with DIRECTOR HYDROGEN STORAGE ENGINEERING. Agree with above A&P as it reflects our joint deliberations. Reema Hanna NP Nov 03, 2019 09:24 Jonathon Pabon MD Nov 03, 2019 11:26
--- NOTE | 2019-11-03 10:19 | Nephrology Progress Note ---
Assessment/Plan Problem List: (1) Renal failure (ARF), acute on chronic (2) Metabolic acidosis (3) Electrolyte imbalance Assessment: Hyponatremia and hyperkalemia (4) Anemia (5) CHF (congestive heart failure) Assessment 79-year-old male is admitted for hypoglycemia Patient has renal failure which appears to be acute on chronic Hyperkalemia Hyponatremia CHF, pleural effusion, pneumonia Anemia Metabolic acidosis Hypothyroidism Plan November 02: Dialyzed yesterday. Will DC IV fluid. Dialysis tomorrow. Potassium supplement given. Per orders. November 01: Patient currently being dialyzed. Tolerating well. Labs will be reviewed. Continue per consultants. October 31: Patient was dialyzed yesterday. Clinically doing better. We will continue to monitor renal parameters. Dialysis as needed. October 30: Serum creatinine rising. Patient due to have a temporary dialysis catheter and due for dialysis today. Will continue to follow-up renal parameters. Patient remains full code. October 29: Serum creatinine rising. Serum creatinine 4.5 today. Calculated creatinine clearance is 12. Kidney ultrasound ordered yesterday results were reviewed. Patient appears to have acute renal failure due to underlying sepsis and nephrotoxic medications. Patient requires dialysis treatment. Ordered to obtain consent from the responsible libertarian. Will communicate with PMD and or he is coverage. October 28: Serum creatinine higher to 4.2 today. Blood pressure appears more stable. In view of worsening renal failure, will order stat kidney ultrasound and urine studies. Continue to monitor renal parameters. Patient is full code. Worsening renal parameters may lead to hemodialysis treatment. October 27: Patient pulled out the Lyles catheter. Serum creatinine went up to 3.8. Blood pressure somewhat low. Heart rate in 50s. Will discontinue Coreg. We will continue to monitor renal parameters. October 26: Serum creatinine lower again today. Will abort the dialysis plan. Continue per consultants. Continue to monitor renal parameters. Medication list reviewed. October 25: Clinically improving. Serum creatinine lower. Urine output increased. No dialysis planned at this time. Continue per consultants. October 24: Patient's respiratory status somewhat improved. Serum creatinine down to 3.9. Urinary output somewhat increased. Will hold placement of dialysis catheter at this time. Blood pressure medication adjusted. Continue to monitor renal parameters. Per orders. October 23: Patient remains on BiPAP. More Kayexalate ordered. Will consider hemodialysis to correct fluid overload and hyperkalemia and acidosis. Will discuss with PMD. Meanwhile IV Synthroid started. Discussed with RN Timothy Patient already transfused 1 unit for severe anemia previously Will initiate Epogen 10,000 units subcutaneously 1 dose of IV iron Venofer 200 g IV Kayexalate for hyperkalemia as needed 2D echocardiogram ordered, ejection fraction is reported normal Kidney ultrasound ordered: Kidneys: Right kidney measures 9.1 cm in length. No hydronephrosis or stone. Left kidney not visualized due to patient's body habitus. Avoid nephrotoxic's Monitor renal parameters Will hold insulin and hypoglycemic agents until hypoglycemia is reasonably resolved Subjective ROS Limited/Unobtainable: Yes Objective Objective Last 24 Hour Vital Signs Date Time Temp Pulse Resp B/P (MAP) Pulse Ox O2 Delivery O2 Flow Rate FiO2 11/03/19 09:29 63 19 100 30 11/03/19 09:00 Bi-pap 12.0 Bi-pap 12.0 11/03/19 08:21 58 155/49 11/03/19 08:00 97.4 58 16 155/49 (84) 100 11/03/19 08:00 56 11/03/19 06:50 58 20 100 Bi-Pap 30 11/03/19 06:50 58 20 100 30 11/03/19 04:00 97.0 20 20 131/44 (73) 99 11/03/19 04:00 55 11/03/19 03:08 58 17 99 30 11/03/19 00:55 61 16 100 30 11/03/19 00:00 62 11/03/19 00:00 96.5 21 21 153/46 (81) 99 11/02/19 22:42 63 18 100 30 11/02/19 21:09 59 17 99 30 11/02/19 21:00 Bi-pap 12.0 Bi-pap 12.0 11/02/19 20:00 96.3 20 20 158/50 (86) 95 11/02/19 20:00 58 11/02/19 19:04 65 19 100 30 11/02/19 19:02 65 19 100 Bi-Pap 30 11/02/19 18:16 63 157/46 11/02/19 16:43 63 17 99 30 11/02/19 16:00 97.9 20 20 157/46 (83) 99 11/02/19 16:00 58 11/02/19 14:50 59 17 99 30 8/11/20 12:30 61 16 99 30 11/02/19 12:00 97.0 18 16 159/55 (89) 99 11/02/19 12:00 59 11/02/19 11:30 69 16 99 30 Intake and Output 11/02/19 11/03/19 19:00 07:00 Intake Total 50 ml 550 ml Output Total 150 ml 200 ml Balance -100 ml 350 ml IV Total 50 ml 550 ml Output Urine Total 150 ml 200 ml Current Medications Medications (Trade) Dose Ordered Sig/Cammy Route PRN Reason Start Time Stop Time Status Last Admin Dose Admin Acetaminophen (Tylenol) 650 mg Q6H PRN NG Pain 3-5 11/02/19 16:22 12/02/19 16:21 Amlodipine Besylate (Norvasc) 5 mg BID NG 11/02/19 18:00 11/25/19 08:59 11/03/19 08:21 Apixaban (Eliquis) 2.5 mg BID NG 11/02/19 18:00 01/31/20 17:59 11/03/19 08:18 Atorvastatin Calcium (Lipitor) 10 mg BEDTIME NG 11/02/19 21:00 01/21/20 20:59 11/02/19 20:37 Chlorhexidine Gluconate (Yi-Hex 2%) 1 applic DAILY@1999 TOPIC 11/02/19 20:00 01/31/20 19:59 11/02/19 20:37 Dextrose (Dextrose 50%) 25 ml Q30M PRN IV Hypoglycemia 10/26/19 13:15 01/20/20 21:44 Dextrose (Dextrose 50%) 50 ml Q30M PRN IV Hypoglycemia 10/26/19 13:15 01/20/20 21:44 Docusate Sodium (Colace) 100 mg THREE TIMES A DAY NG 11/02/19 18:00 12/02/19 17:59 11/03/19 08:19 Epoetin William (Epoetin William-EPBX(NON ESRD)) 10,000 unit FRI-FRI-FRI SUBQ 10/27/19 21:00 01/25/20 20:59 11/01/19 21:50 Haloperidol (Haldol) 5 mg Q12H PRN NG Agitation 11/02/19 16:15 12/17/19 16:14 Haloperidol Lactate (Haldol) 5 mg Q6H PRN IM Agitation 10/26/19 12:57 12/10/19 12:56 10/28/19 21:06 Hydralazine HCl (Apresoline) 10 mg Q4H PRN IV For High Blood Pressure 10/26/19 13:07 01/24/20 13:06 11/02/19 03:21 Insulin Aspart (NovoLOG) BEFORE MEALS AND HS SUBQ 11/02/19 06:30 01/31/20 06:29 11/02/19 06:46 Lactulose (Cephulac) 10 gm BID NG 11/02/19 18:00 12/01/19 08:59 11/03/19 08:19 Levothyroxine Sodium (Synthroid) 50 mcg DAILY IV 10/27/19 09:00 11/23/19 13:59 11/03/19 08:19 Pantoprazole (Protonix) 40 mg EVERY 12 HOURS IVP 10/26/19 21:00 11/22/19 08:59 11/03/19 08:18 Polyethylene Glycol (Miralax) 17 gm BEDTIME NG 11/02/19 21:00 12/01/19 20:59 11/02/19 20:37 Sennosides (Senokot) 8.6 mg HSPRN PRN NG Constipation 11/02/19 16:15 12/02/19 16:14 Sevelamer Carbonate (Renvela) 1,600 mg THREE TIMES A DAY NG 11/02/19 18:00 01/21/20 17:59 11/03/19 08:18 Sodium Bicarbonate 50 ml/ Dextrose 1,050 ml @ 50 mls/hr Q21H IV 10/27/19 05:00 11/26/19 04:59 11/03/19 04:57 Vitamin B Complex/ Vit C/Folic Acid (Nephrovite) 1 tab DAILY NG 11/03/19 09:00 11/22/19 08:59 11/03/19 08:18 Laboratory Tests 11/02/19 11:25: POC Whole Blood Glucose [Pending] 11/02/19 13:32: Arterial Blood pH 7.357, Arterial Blood Partial Pressure CO2 57.2*H, Arterial Blood Partial Pressure O2 89.1, Arterial Blood HCO3 31.4H, Arterial Blood Oxygen Saturation 96.4, Arterial Blood Base Excess 4.9H, Kristian Test Positive 11/02/19 17:19: POC Whole Blood Glucose 148H 11/02/19 20:02: POC Whole Blood Glucose 161H 11/03/19 02:45: POC Whole Blood Glucose 179H 11/03/19 04:00: White Blood Count 9.0, Red Blood Count 2.87L, Hemoglobin 8.7L, Hematocrit 28.2L , Mean Corpuscular Volume 98, Mean Corpuscular Hemoglobin 30.5, Mean Corpuscular Hemoglobin Concent 31.0L, Red Cell Distribution Width 15.4H, Platelet Count 160, Mean Platelet Volume 8.2, Neutrophils (%) (Auto) , Lymphocytes (%) (Auto) , Monocytes (%) (Auto) , Eosinophils (%) (Auto) , Basophils (%) (Auto) , Sodium Level 132L, Potassium Level 3.2L, Chloride Level 95L, Carbon Dioxide Level 33H, Anion Gap 4L, Blood Urea Nitrogen 60H, Creatinine 4.2H, Estimat Glomerular Filtration Rate 13.7, Glucose Level 173H, Calcium Level 8.7, Phosphorus Level 4.7, Magnesium Level 2.3, Total Bilirubin 0.3, Aspartate Amino Transf (AST/SGOT) 30, Alanine Aminotransferase (ALT/SGPT) 28, Alkaline Phosphatase 90, C-Reactive Protein, Quantitative 2.8H, Total Protein 5.6L, Albumin 2.2L, Globulin 3.4, Albumin/Globulin Ratio 0.6L 11/03/19 04:58: POC Whole Blood Glucose 170H 11/03/19 06:59: Arterial Blood pH 7.343L, Arterial Blood Partial Pressure CO2 59.3*H, Arterial Blood Partial Pressure O2 81.7, Arterial Blood HCO3 31.5H, Arterial Blood Oxygen Saturation 95.7, Arterial Blood Base Excess 4.8H, Kristian Test Positive Height (Feet): 5 Height (Inches): 8.00 Weight (Pounds): 198 General Appearance: no apparent distress EENT: other - On BiPAP Cardiovascular: normal rate Respiratory/Chest: decreased breath sounds Abdomen: distended Objective No change Naveed Vanegas MD Nov 03, 2019 10:19
[2019-11-03] MEDS ORDERED: Acetaminophen 650mg/20.3ml NG PRN (11:15)
[2019-11-03] MEDS ORDERED: Haloperidol 5mg/ml Inj IM PRN (11:15)
--- NOTE | 2019-11-03 11:41 | Diagnostic Imaging Report ---
Indication: Shortness of breath Technique: One view of the chest Comparison: 10/31/2019 Findings: Interim placement of nasogastric tube, tip projected at the level of the gastric body. This was also demonstrated on 11/01/2019 abdominal radiograph. Bilateral hazy opacity appears similar to or perhaps slightly increased from the prior study. Generalized mild interstitial prominence persists. Impression: Stable slightly increased bilateral pleural effusions Otherwise little price changer 3 days
[2019-11-03 12:00] VITALS: BP 155/49
--- NOTE | 2019-11-03 13:23 | Hematology/Onc Progress Note ---
Assessment/Plan Assessment/Plan DOS: 11/03/[address] Chang ASSESSMENT AND RECOMMENDATIONS: # Anemia of chronic disease, multifactorial --> Anemia w/u has been reviewed. --> no evidence of hemolysis is noted, peripheral smear has been reviewed --> hgb goal is >7, transfuse as needed --> currently remains stable, occult blood negative --> hgb 8.4->8.6->8.3->8->8.2 --> some blood loss due to hematuria after inflated reyes pulled 8/6 am --> EPOGEN Started # Acute kidney injury r/o potential reversible component --> reviewed meds, those that are renally cleared removed --> as per renal recs, appreciated --> cr 3.5-->4.2 # Hypertension, essential --> sbp goal is <140, consider anti-htn as needed --> currently started on hyralazine 25mg po q6h prn sbp >140 # CHF - hx of CHf --> diuresis with lasix as needed --> cardiology recs appreciated prior adm #. Leukocytosis with underlying infectionv stress reaction HISTORY --> per id and better --> for infection, ABX ctx/vanc #. Bilateral lower extremity amputee, metatarsal several years ago #. Hyperkalemia -- kayxelate as needed #. Dvt ppx scds #. AMS --> Neuro evaluation The time the note was entered does not necessarily correspond to the time the patient was seen. GREATLY APPRECIATE CONSULTATION. Subjective ROS Limited/Unobtainable: Yes Allergies: Coded Allergies: PENICILLINS (Verified Allergy, Unknown, 10/25/19) tolerated Ceftriaxone Subjective Neuro Evaluation d/w pulmonary team Objective Objective Current Medications Medications (Trade) Dose Ordered Sig/Cammy Route PRN Reason Start Time Stop Time Status Last Admin Dose Admin Acetaminophen (Tylenol) 650 mg Q6H PRN NG Pain 3-5 11/03/19 11:15 12/02/19 11:14 Amlodipine Besylate (Norvasc) 5 mg BID NG 11/03/19 18:00 11/25/19 08:59 Apixaban (Eliquis) 2.5 mg BID NG 11/03/19 18:00 01/31/20 17:59 Atorvastatin Calcium (Lipitor) 10 mg BEDTIME NG 11/03/19 21:00 10/30/20 20:59 Chlorhexidine Gluconate (Yi-Hex 2%) 1 applic DAILY@2000 TOPIC 11/03/19 20:00 01/31/20 19:59 Dextrose (Dextrose 50%) 25 ml Q30M PRN IV Hypoglycemia 11/03/19 11:15 01/20/20 21:44 Dextrose (Dextrose 50%) 50 ml Q30M PRN IV Hypoglycemia 11/03/19 11:15 01/20/20 21:44 Docusate Sodium (Colace) 100 mg THREE TIMES A DAY NG 11/03/19 13:00 12/02/19 17:59 11/03/19 12:46 Epoetin William (Epoetin William(ESRD on dialysis)) 10,000 unit FRI- SUBQ 11/03/19 21:00 02/01/20 20:59 Haloperidol (Haldol) 5 mg Q12H PRN NG Agitation 11/03/19 11:15 12/17/19 11:14 Haloperidol Lactate (Haldol) 5 mg Q6H PRN IM Agitation 11/03/19 11:15 12/10/19 11:14 Hydralazine HCl (Apresoline) 10 mg Q4H PRN IV For High Blood Pressure 11/03/19 11:15 01/24/20 11:14 Insulin Aspart (NovoLOG) BEFORE MEALS AND HS SUBQ 11/03/19 11:30 01/31/20 06:29 11/03/19 12:42 Lactulose (Cephulac) 10 gm BID NG 11/03/19 18:00 12/01/19 08:59 Levothyroxine Sodium (Synthroid) 75 mcg DAILY@0630 ORAL 11/04/19 06:30 12/04/19 06:29 Pantoprazole (Protonix) 40 mg EVERY 12 HOURS IVP 11/03/19 21:00 11/22/19 08:59 Polyethylene Glycol (Miralax) 17 gm BEDTIME NG 11/03/19 21:00 12/01/19 20:59 Sennosides (Senokot) 8.6 mg HSPRN PRN NG Constipation 11/03/19 16:15 12/02/19 16:14 Sevelamer Carbonate (Renvela) 1,600 mg THREE TIMES A DAY NG 11/03/19 13:00 01/21/20 17:59 11/03/19 12:49 Last 24 Hour Vital Signs Date Time Temp Pulse Resp B/P (MAP) Pulse Ox O2 Delivery O2 Flow Rate FiO2 11/03/19 12:50 59 16 100 30 11/03/19 10:46 53 16 100 30 11/03/19 09:29 63 19 100 30 11/03/19 09:00 Bi-pap 12.0 Bi-pap 12.0 11/03/19 08:21 58 155/49 11/03/19 08:00 97.4 58 16 155/49 (84) 100 11/03/19 08:00 56 11/03/19 06:50 58 20 100 Bi-Pap 30 11/03/19 06:50 58 20 100 30 11/03/19 04:00 97.0 20 20 131/44 (73) 99 11/03/19 04:00 55 11/03/19 03:08 58 17 99 30 11/03/19 00:55 61 16 100 30 11/03/19 00:00 62 11/03/19 00:00 96.5 21 21 153/46 (81) 99 11/02/19 22:42 63 18 100 30 11/02/19 21:09 59 17 99 30 11/02/19 21:00 Bi-pap 12.0 Bi-pap 12.0 11/02/19 20:00 96.3 20 20 158/50 (86) 95 11/02/19 20:00 58 11/02/19 19:04 65 19 100 30 11/02/19 19:02 65 19 100 Bi-Pap 30 11/02/19 18:16 63 157/46 11/02/19 16:43 63 17 99 30 11/02/19 16:00 97.9 72 20 157/46 (83) 99 11/02/19 16:00 58 11/02/19 14:50 59 17 99 30 11/02/19 12:30 61 16 99 30 11/02/19 12:00 97.0 68 16 159/55 (89) 99 11/02/19 12:00 59 11/02/19 11:30 69 16 99 30 11/02/19 09:11 63 126/43 11/02/19 09:09 62 20 99 30 11/02/19 09:00 Bi-pap 10.0 Bi-pap 10.0 11/02/19 08:00 96.4 63 16 126/43 (70) 100 11/02/19 08:00 63 11/02/19 07:35 63 16 10 30 11/02/19 07:35 63 16 100 Bi-Pap 30 11/02/19 04:39 63 17 99 30 11/02/19 04:15 98.4 65 20 155/54 (87) 99 11/02/19 04:00 65 11/02/19 03:21 164/70 11/02/19 02:43 68 17 100 30 11/02/19 00:34 70 16 99 30 11/02/19 00:00 66 11/02/19 00:00 98.1 66 20 155/68 (97) 99 11/01/19 22:46 67 17 100 30 11/01/19 21:26 74 19 99 30 11/01/19 21:00 Nasal Cannula 2.0 Nasal Cannula 2.0 11/01/19 20:00 98.1 70 19 150/50 (83) 100 11/01/19 20:00 70 11/01/19 19:55 75 16 98 Bi-Pap 30 11/01/19 19:55 69 18 98 30 11/01/19 17:14 74 152/55 11/01/19 16:19 74 11/01/19 15:51 97.6 76 20 152/55 (87) 99 Intake and Output 11/02/19 11/03/19 19:00 07:00 Intake Total 50 ml 550 ml Output Total 150 ml 200 ml Balance -100 ml 350 ml IV Total 50 ml 550 ml Output Urine Total 150 ml 200 ml Labs Test 10/31/19 17:08 10/31/19 22:03 11/01/19 06:20 11/01/19 06:35 POC Whole Blood Glucose 145 MG/DL (74-106) 203 MG/DL (74-106) White Blood Count 10.6 K/UL (4.8-10.8) Red Blood Count 3.05 M/UL (4.70-6.10) Hemoglobin 9.4 G/DL (14.2-18.0) Hematocrit 30.1 % (42.0-52.0) Mean Corpuscular Volume 99 FL (80-99) Mean Corpuscular Hemoglobin 30.8 PG (27.0-31.0) Mean Corpuscular Hemoglobin Concent 31.1 G/DL (32.0-36.0) Red Cell Distribution Width 16.1 % (11.6-14.8) Platelet Count 198 K/UL (150-450) Mean Platelet Volume 8.3 FL (6.5-10.1) Neutrophils (%) (Auto) % (45.0-75.0) Lymphocytes (%) (Auto) % (20.0-45.0) Monocytes (%) (Auto) % (1.0-10.0) Eosinophils (%) (Auto) % (0.0-3.0) Basophils (%) (Auto) % (0.0-2.0) Differential Total Cells Counted 100 Neutrophils % (Manual) 95 % (45-75) Lymphocytes % (Manual) 4 % (20-45) Monocytes % (Manual) 1 % (1-10) Eosinophils % (Manual) 0 % (0-3) Basophils % (Manual) 0 % (0-2) Band Neutrophils 0 % (0-8) Platelet Estimate Adequate Platelet Morphology Normal Polychromasia 1+ Hypochromasia 1+ Anisocytosis 1+ Macrocytosis 2+ Sodium Level 134 MMOL/L (136-145) Potassium Level 3.8 MMOL/L (3.5-5.1) Chloride Level 98 MMOL/L (98-107) Carbon Dioxide Level 33 MMOL/L (21-32) Anion Gap 3 mmol/L (5-15) Blood Urea Nitrogen 51 mg/dL (7-18) Creatinine 3.7 MG/DL (0.55-1.30) Estimat Glomerular Filtration Rate 15.8 mL/min (>60) Glucose Level 209 MG/DL (74-106) Calcium Level 9.0 MG/DL (8.5-10.1) Phosphorus Level 6.1 MG/DL (2.5-4.9) Magnesium Level 2.4 MG/DL (1.8-2.4) Total Bilirubin 0.1 MG/DL (0.2-1.0) Direct Bilirubin < 0.1 MG/DL (0.0-0.3) Aspartate Amino Transf (AST/SGOT) 44 U/L (15-37) Alanine Aminotransferase (ALT/SGPT) 31 U/L (12-78) Alkaline Phosphatase 122 U/L (46-116) Total Protein 6.4 G/DL (6.4-8.2) Albumin 2.5 G/DL (3.4-5.0) Test 11/01/19 11:23 11/01/19 15:42 11/01/19 15:45 11/01/19 16:01 POC Whole Blood Glucose 177 MG/DL (74-106) 169 MG/DL (74-106) Arterial Blood pH 7.331 (7.350-7.450) Arterial Blood Partial Pressure CO2 62.1 mmHg (35.0-45.0) Arterial Blood Partial Pressure O2 65.2 mmHg (75.0-100.0) Arterial Blood HCO3 32.1 mmol/L (22.0-26.0) Arterial Blood Oxygen Saturation 92.7 % (95-100) Arterial Blood Base Excess 5.0 (-2-2) Kristian Test Positive Ammonia 32 umol/L (11-32) Test 11/01/19 20:47 11/02/19 06:03 11/02/19 06:23 11/02/19 11:25 POC Whole Blood Glucose 189 MG/DL (74-106) 159 MG/DL (74-106) White Blood Count 10.1 K/UL (4.8-10.8) Red Blood Count 2.81 M/UL (4.70-6.10) Hemoglobin 8.7 G/DL (14.2-18.0) Hematocrit 27.6 % (42.0-52.0) Mean Corpuscular Volume 98 FL (80-99) Mean Corpuscular Hemoglobin 31.1 PG (27.0-31.0) Mean Corpuscular Hemoglobin Concent 31.7 G/DL (32.0-36.0) Red Cell Distribution Width 15.6 % (11.6-14.8) Platelet Count 193 K/UL (150-450) Mean Platelet Volume 7.6 FL (6.5-10.1) Neutrophils (%) (Auto) % (45.0-75.0) Lymphocytes (%) (Auto) % (20.0-45.0) Monocytes (%) (Auto) % (1.0-10.0) Eosinophils (%) (Auto) % (0.0-3.0) Basophils (%) (Auto) % (0.0-2.0) Differential Total Cells Counted 100 Neutrophils % (Manual) 91 % (45-75) Lymphocytes % (Manual) 3 % (20-45) Monocytes % (Manual) 6 % (1-10) Eosinophils % (Manual) 0 % (0-3) Basophils % (Manual) 0 % (0-2) Band Neutrophils 0 % (0-8) Nucleated Red Blood Cells 3 /100 WBC Platelet Estimate Adequate Platelet Morphology Normal Hypochromasia 2+ Anisocytosis 1+ Macrocytosis 1+ Sodium Level 131 MMOL/L (136-145) Potassium Level 3.5 MMOL/L (3.5-5.1) Chloride Level 95 MMOL/L (98-107) Carbon Dioxide Level 30 MMOL/L (21-32) Anion Gap 6 mmol/L (5-15) Blood Urea Nitrogen 62 mg/dL (7-18) Creatinine 4.1 MG/DL (0.55-1.30) Estimat Glomerular Filtration Rate 14.1 mL/min (>60) Glucose Level 166 MG/DL (74-106) Calcium Level 9.1 MG/DL (8.5-10.1) Phosphorus Level 5.6 MG/DL (2.5-4.9) Magnesium Level 2.3 MG/DL (1.8-2.4) Total Bilirubin 0.1 MG/DL (0.2-1.0) Aspartate Amino Transf (AST/SGOT) 33 U/L (15-37) Alanine Aminotransferase (ALT/SGPT) 29 U/L (12-78) Alkaline Phosphatase 100 U/L (46-116) C-Reactive Protein, Quantitative 4.1 mg/dL (0.00-0.90) Pro-B-Type Natriuretic Peptide 50605 pg/mL (0-125) Total Protein 5.8 G/DL (6.4-8.2) Albumin 2.3 G/DL (3.4-5.0) Globulin 3.5 g/dL Albumin/Globulin Ratio 0.7 (1.0-2.7) Test 11/02/19 13:32 11/02/19 17:19 11/02/19 20:02 11/03/19 02:45 Arterial Blood pH 7.357 (7.350-7.450) Arterial Blood Partial Pressure CO2 57.2 mmHg (35.0-45.0) Arterial Blood Partial Pressure O2 89.1 mmHg (75.0-100.0) Arterial Blood HCO3 31.4 mmol/L (22.0-26.0) Arterial Blood Oxygen Saturation 96.4 % (95-100) Arterial Blood Base Excess 4.9 (-2-2) Kristian Test Positive POC Whole Blood Glucose 148 MG/DL (74-106) 161 MG/DL (74-106) 179 MG/DL (74-106) Test 11/03/19 04:00 11/03/19 04:58 11/03/19 06:59 11/03/19 12:18 White Blood Count 9.0 K/UL (4.8-10.8) Red Blood Count 2.87 M/UL (4.70-6.10) Hemoglobin 8.7 G/DL (14.2-18.0) Hematocrit 28.2 % (42.0-52.0) Mean Corpuscular Volume 98 FL (80-99) Mean Corpuscular Hemoglobin 30.5 PG (27.0-31.0) Mean Corpuscular Hemoglobin Concent 31.0 G/DL (32.0-36.0) Red Cell Distribution Width 15.4 % (11.6-14.8) Platelet Count 160 K/UL (150-450) Mean Platelet Volume 8.2 FL (6.5-10.1) Neutrophils (%) (Auto) % (45.0-75.0) Lymphocytes (%) (Auto) % (20.0-45.0) Monocytes (%) (Auto) % (1.0-10.0) Eosinophils (%) (Auto) % (0.0-3.0) Basophils (%) (Auto) % (0.0-2.0) Sodium Level 132 MMOL/L (136-145) Potassium Level 3.2 MMOL/L (3.5-5.1) Chloride Level 95 MMOL/L (98-107) Carbon Dioxide Level 33 MMOL/L (21-32) Anion Gap 4 mmol/L (5-15) Blood Urea Nitrogen 60 mg/dL (7-18) Creatinine 4.2 MG/DL (0.55-1.30) Estimat Glomerular Filtration Rate 13.7 mL/min (>60) Glucose Level 173 MG/DL (74-106) Calcium Level 8.7 MG/DL (8.5-10.1) Phosphorus Level 4.7 MG/DL (2.5-4.9) Magnesium Level 2.3 MG/DL (1.8-2.4) Total Bilirubin 0.3 MG/DL (0.2-1.0) Aspartate Amino Transf (AST/SGOT) 30 U/L (15-37) Alanine Aminotransferase (ALT/SGPT) 28 U/L (12-78) Alkaline Phosphatase 90 U/L (46-116) C-Reactive Protein, Quantitative 2.8 mg/dL (0.00-0.90) Total Protein 5.6 G/DL (6.4-8.2) Albumin 2.2 G/DL (3.4-5.0) Globulin 3.4 g/dL Albumin/Globulin Ratio 0.6 (1.0-2.7) POC Whole Blood Glucose 170 MG/DL (74-106) 186 MG/DL (74-106) Arterial Blood pH 7.343 (7.350-7.450) Arterial Blood Partial Pressure CO2 59.3 mmHg (35.0-45.0) Arterial Blood Partial Pressure O2 81.7 mmHg (75.0-100.0) Arterial Blood HCO3 31.5 mmol/L (22.0-26.0) Arterial Blood Oxygen Saturation 95.7 % (95-100) Arterial Blood Base Excess 4.8 (-2-2) Kristian Test Positive Height (Feet): 5 Height (Inches): 8.00 Weight (Pounds): 198 General Appearance: no apparent distress Objective Constitutional: Denies: no symptoms, chills, fever, malaise, weakness, other HEENT: Denies: no symptoms, eye pain, blurred vision, tearing, double vision, ear pain, ear discharge, nose pain, nose congestion, throat pain, throat swelling, mouth pain, mouth swelling, other Cardiovascular: Denies: no symptoms, chest pain, edema, irregular heart rate, lightheadedness, palpitations, syncope, other Respiratory: Denies: no symptoms, cough, shortness of breath, SOB with excertion, SOB at rest, sputum, wheezing, other Gastrointestinal/Abdominal: Denies: no symptoms, abdomen distended, abdominal pain, black stools, tarry stools, blood in stool, constipated, diarrhea, difficulty swallowing, nausea, poor appetite, poor fluid intake, rectal bleeding , vomiting, other Genitourinary: Denies: no symptoms, burning, discharge, frequency, flank pain, hematuria, incontinence, pain, urgency, other Neurologic/Psychiatric: Denies: no symptoms, anxiety, depressed, emotional problems, headache, numbness, paresthesia, pre-existing deficit, seizure, tingling, tremors, weakness, other Endocrine: Denies: no symptoms, excessive sweating, flushing, intolerance to cold, intolerance to heat, increased hunger, increased thirst, increased urine, unexplained weight gain, unexplained weight loss, other Esther Locke NP Nov 03, 2019 13:23
[2019-11-03 16:00] VITALS: BP 147/52
[2019-11-03] MEDS ORDERED: Sennosides 8.6mg tab NG PRN (16:15)
[2019-11-03 20:00] VITALS: BP 145/65
[2019-11-03] MEDS ORDERED: Epoetin Alfa-EPBX (NON ESRD)10,000 unit/ml vial SUBQ SCH (21:00)
[2019-11-03] MEDS: Miralax 17gm pkt NG SCH (21:01)
[2019-11-03] MEDS: Dyna-Hex 2% Top Sol 2oz TOPIC SCH (21:01)
[2019-11-03] MEDS: Epoetin Alfa-EPBX(ESRD on dialysis)10,000 unit/ml vial SUBQ SCH (21:02)
[2019-11-04] VITALS (7 sets, daily range): BP systolic 127–168; BP diastolic 58–70
[2019-11-04 05:32] LABS: PHOSPHORUS 4.5 MG/DL (2.5-4.9)
[2019-11-04 05:33] LABS: BASOPHILS % (AUTO) 0.3 % (0.0-2.0); EOSINOPHILS % (AUTO) 0.8 % (0.0-3.0); HEMATOCRIT 28.2 % (42.0-52.0); HEMOGLOBIN 8.7 G/DL (14.2-18.0); LYMPHOCYTES % (AUTO) 10.8 % (20.0-45.0); MEAN CORPUSCULAR VOLUME 100 FL (80-99); PLATELET COUNT 144 K/UL (150-450); RED BLOOD COUNT 2.82 M/UL (4.70-6.10); RED CELL DISTRIBUTION WIDTH 16.3 % (11.6-14.8); WHITE BLOOD COUNT 8.7 K/UL (4.8-10.8)
[2019-11-04 05:36] LABS: ALANINE AMINOTRANSFERASE 21 U/L (12-78); ALBUMIN 2.1 G/DL (3.4-5.0); ALBUMIN/GLOBULIN RATIO 0.6 (1.0-2.7); ALKALINE PHOSPHATASE 96 U/L (46-116); ANION GAP 5 mmol/L (5-15); ASPARTATE AMINO TRANSFERASE 25 U/L (15-37); BILIRUBIN,TOTAL 0.3 MG/DL (0.2-1.0); BLOOD UREA NITROGEN 65 mg/dL (7-18); CALCIUM 9.1 MG/DL (8.5-10.1); CARBON DIOXIDE 32 MMOL/L (21-32); CHLORIDE 94 MMOL/L (98-107); CREATININE 4.1 MG/DL (0.55-1.30); POTASSIUM 3.6 MMOL/L (3.5-5.1); SODIUM 131 MMOL/L (136-145)
[2019-11-04] MEDS: NovoLOG Insulin Flexpen SUBQ SCH ×4 (05:51→20:28)
--- NOTE | 2019-11-04 07:50 | Infectious Diseases Prog Note ---
Assessment/Plan 79yo M from SNF who p/w hypoglycemia and resp failure: Acute hypoxic respiratory failure, on BiPAP > 2L NC> RA > 2L NC Rapid COVID neg x2 (10/21, 10/24) Pneumonia on CXR Volume overload 10/30 CXR: Slightly improved 10/25 CXR: Bilateral alveolar densities are unchanged 10/24 Sp cx normal resp demario (prelim) 10/23 CXR: 1. Small layering right pleural effusion, not significantly changed. The previously noted small left pleural effusion is not as evident.Prominent lung markings and haziness, right greater left, which may be related to pulmonary vascular congestion versus pneumonitis. This is not significantly changed.. Subsegmental atelectasis versus infiltrate in the medial left lung base, also not significantly changed. 10/21 CXR: 1. Small bilateral pleural effusions. Bibasilar atelectasis versus pneumonia. 2. Prominent lung markings and hazy opacities in right greater than left lungs may represent artifact versus pulmonary vasculature congestion and edema versus infectious/inflammatory process. 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 10/31 No clear clinical correlate to this imaging finding, s/p 7 days of CTX which is good abx for mastoiditis Hypercapnia, ongoing; on BiPAP Afebrile No leukocytosis Anemia to 6.8, improved UA neg, UCx neg R/o bacteremia 10/21 BCx NTD ALEXIS on CKD, worsening --> now on HD HBsAg neg Plan: Cont to monitor off abx, s/p 7d of abx for pna, but this also covered for possible mastoiditis ENT to evaluate ears/TMs for signs of underlying mastoiditis, as seen on CT head ; would appreciate the evaluation as pt unable to tell us if he has ear pain/DE LEON , etc. Appreciate Pulm input on ongoing resp failure, less likely 2/2 infection given s /p abx and lack of fever or leukocytosis 10/31 SP CTX #7 8/ SP vancomycin IV #5 Trend resp status Monitor CBC, CMP D/w RN Thank you for this consult. [facility] will continue to follow. Subjective Allergies: Coded Allergies: PENICILLINS (Verified Allergy, Unknown, 10/25/19) tolerated Ceftriaxone AF WBC 8 NAD Remains on BiPAP 2/2 hypercapnia Objective Last 24 Hour Vital Signs Date Time Temp Pulse Resp B/P (MAP) Pulse Ox O2 Delivery O2 Flow Rate FiO2 11/04/19 06:36 71 17 97 30 11/04/19 05:06 72 17 96 30 11/04/19 04:00 97.9 70 18 139/58 (85) 100 11/04/19 04:00 30 11/04/19 03:30 66 11/04/19 03:21 67 16 96 30 11/04/19 01:25 67 16 98 30 11/04/19 00:00 96.4 61 18 138/58 (84) 100 11/03/19 23:27 68 11/03/19 23:16 66 16 97 30 11/03/19 21:15 64 16 99 30 11/03/19 21:00 Bi-pap 12.0 Bi-pap 12.0 11/03/19 20:00 97.2 61 18 145/65 (91) 100 11/03/19 20:00 30 11/03/19 19:25 59 11/03/19 19:10 64 17 100 30 11/03/19 19:08 55 17 100 Bi-Pap 30 11/03/19 18:22 65 147/52 11/03/19 17:00 66 16 99 30 11/03/19 16:00 97.3 65 18 147/52 (83) 100 11/03/19 15:39 65 17 99 30 11/03/19 15:16 60 11/03/19 12:50 59 16 100 30 11/03/19 12:00 96.0 55 16 155/49 (84) 100 11/03/19 12:00 52 11/03/19 10:46 53 16 100 30 11/03/19 09:29 63 19 100 30 11/03/19 09:00 Bi-pap 12.0 Bi-pap 12.0 11/03/19 08:21 58 155/49 11/03/19 08:00 97.4 58 16 155/49 (84) 100 11/03/19 08:00 56 Height (Feet): 5 Height (Inches): 8.00 Weight (Pounds): 199 Gen: Older man, NAD in bed CV: RRR Pulm: CTAB anteriorly on BiPAP Abd: Soft, NTND Neuro: Non-responsive Laboratory Tests Test 11/03/19 12:18 11/03/19 17:40 11/03/19 20:11/04/19 04:00 POC Whole Blood Glucose 186 MG/DL (74-106) H 170 MG/DL (74-106) H 171 MG/DL (74-106) H White Blood Count 8.7 K/UL (4.8-10.8) Red Blood Count 2.82 M/UL (4.70-6.10) L Hemoglobin 8.7 G/DL (14.2-18.0) L Hematocrit 28.2 % (42.0-52.0) L Mean Corpuscular Volume 100 FL (80-99) H Mean Corpuscular Hemoglobin 30.9 PG (27.0-31.0) Mean Corpuscular Hemoglobin Concent 30.9 G/DL (32.0-36.0) L Red Cell Distribution Width 16.3 % (11.6-14.8) H Platelet Count 144 K/UL (150-450) L Mean Platelet Volume 8.2 FL (6.5-10.1) Neutrophils (%) (Auto) 83.0 % (45.0-75.0) H Lymphocytes (%) (Auto) 10.8 % (20.0-45.0) L Monocytes (%) (Auto) 5.0 % (1.0-10.0) Eosinophils (%) (Auto) 0.8 % (0.0-3.0) Basophils (%) (Auto) 0.3 % (0.0-2.0) Sodium Level 131 MMOL/L (136-145) L Potassium Level 3.6 MMOL/L (3.5-5.1) Chloride Level 94 MMOL/L (98-107) L Carbon Dioxide Level 32 MMOL/L (21-32) Anion Gap 5 mmol/L (5-15) Blood Urea Nitrogen 65 mg/dL (7-18) H Creatinine 4.1 MG/DL (0.55-1.30) H Estimat Glomerular Filtration Rate 14.1 mL/min (>60) Glucose Level 130 MG/DL (74-106) H Calcium Level 9.1 MG/DL (8.5-10.1) Phosphorus Level 4.5 MG/DL (2.5-4.9) Magnesium Level 2.3 MG/DL (1.8-2.4) Total Bilirubin 0.3 MG/DL (0.2-1.0) Aspartate Amino Transf (AST/SGOT) 25 U/L (15-37) Alanine Aminotransferase (ALT/SGPT) 21 U/L (12-78) Alkaline Phosphatase 96 U/L (46-116) C-Reactive Protein, Quantitative 2.9 mg/dL (0.00-0.90) H Total Protein 5.5 G/DL (6.4-8.2) L Albumin 2.1 G/DL (3.4-5.0) L Globulin 3.4 g/dL Albumin/Globulin Ratio 0.6 (1.0-2.7) L Test 11/04/19 05:49 POC Whole Blood Glucose 138 MG/DL (74-106) H Current Medications Medications (Trade) Dose Ordered Sig/Cammy Route PRN Reason Start Time Stop Time Status Last Admin Dose Admin Acetaminophen (Tylenol) 650 mg Q6H PRN NG Pain 3-5 11/03/19 11:15 12/02/19 11:14 Amlodipine Besylate (Norvasc) 5 mg BID NG 11/03/19 18:00 11/25/19 08:59 11/03/19 18:22 Apixaban (Eliquis) 2.5 mg BID NG 11/03/19 18:00 01/31/20 17:59 11/03/19 18:25 Atorvastatin Calcium (Lipitor) 10 mg BEDTIME NG 11/03/19 21:00 01/21/20 20:59 11/03/19 21:02 Chlorhexidine Gluconate (Yi-Hex 2%) 1 applic DAILY@1999 TOPIC 11/03/19 20:00 01/31/20 19:59 11/03/19 21:01 Dextrose (Dextrose 50%) 25 ml Q30M PRN IV Hypoglycemia 11/03/19 11:15 01/20/20 21:44 Dextrose (Dextrose 50%) 50 ml Q30M PRN IV Hypoglycemia 11/03/19 11:15 01/20/20 21:44 Docusate Sodium (Colace) 100 mg THREE TIMES A DAY NG 11/03/19 13:00 12/02/19 17:59 11/03/19 18:19 Epoetin William (Epoetin William(ESRD on dialysis)) 10,000 unit FRI-FRI-FRI SUBQ 11/03/19 21:00 02/01/20 20:59 11/03/19 21:02 Haloperidol (Haldol) 5 mg Q12H PRN NG Agitation 11/03/19 11:15 12/17/19 11:14 Haloperidol Lactate (Haldol) 5 mg Q6H PRN IM Agitation 11/03/19 11:15 12/10/19 11:14 Hydralazine HCl (Apresoline) 10 mg Q4H PRN IV For High Blood Pressure 11/03/19 11:15 01/24/20 11:14 Insulin Aspart (NovoLOG) BEFORE MEALS AND HS SUBQ 11/03/19 11:30 01/31/20 06:29 11/03/19 21:11 Lactulose (Cephulac) 10 gm BID NG 11/03/19 18:00 12/01/19 08:59 11/03/19 18:19 Levothyroxine Sodium (Synthroid) 75 mcg DAILY@0630 ORAL 11/04/19 06:30 12/04/19 06:29 11/04/19 05:51 Pantoprazole (Protonix) 40 mg EVERY 12 HOURS IVP 11/03/19 21:00 11/22/19 08:59 11/03/19 21:02 Polyethylene Glycol (Miralax) 17 gm BEDTIME NG 11/03/19 21:00 12/01/19 20:59 11/03/19 21:01 Sennosides (Senokot) 8.6 mg HSPRN PRN NG Constipation 11/03/19 16:15 12/02/19 16:14 Sevelamer Carbonate (Renvela) 1,600 mg THREE TIMES A DAY NG 11/03/19 13:00 01/21/20 17:59 11/03/19 18:19 Mckenna Diallo M.D. Nov 04, 2019 07:50
[2019-11-04] MEDS: Eliquis 2.5mg tablet NG SCH ×2 (08:59→17:15)
[2019-11-04] MEDS: Renvela 800mg Pkt NG SCH ×3 (09:00→17:14)
[2019-11-04] MEDS: Pantoprazole Inj IVP SCH ×2 (09:00→20:32)
[2019-11-04] MEDS: Lactulose 10gm/15ml UDC NG SCH ×2 (09:00→17:14)
[2019-11-04] MEDS: Docusate 100mg/10ml Liq NG SCH ×3 (09:00→17:14)
--- NOTE | 2019-11-04 09:24 | Surgery Progress Note ---
Surgery Progress Note Subjective Procedure Performed Right femoral temporary hemodialysis catheter insertion Additional Comments neruo eval confused no n/v line okay penile edema improved Objective Last 24 Hour Vital Signs Date Time Temp Pulse Resp B/P (MAP) Pulse Ox O2 Delivery O2 Flow Rate FiO2 11/04/19 09:00 65 127/58 11/04/19 08:54 98 17 96 30 11/04/19 08:00 Bi-pap 12.0 Bi-pap 12.0 11/04/19 08:00 30 11/04/19 08:00 98.1 65 17 127/58 (81) 97 11/04/19 06:36 71 17 97 30 11/04/19 05:06 72 17 96 30 11/04/19 04:00 97.9 70 18 139/58 (85) 100 11/04/19 04:00 30 11/04/19 03:30 66 11/04/19 03:21 67 16 96 30 11/04/19 01:25 67 16 98 30 11/04/19 00:00 96.4 61 18 138/58 (84) 100 11/03/19 23:27 68 11/03/19 23:16 66 16 97 30 11/03/19 21:15 64 16 99 30 11/03/19 21:00 Bi-pap 12.0 Bi-pap 12.0 11/03/19 20:00 97.2 61 18 145/65 (91) 100 11/03/19 20:00 30 11/03/19 19:25 59 11/03/19 19:10 64 17 100 30 11/03/19 19:08 55 17 100 Bi-Pap 30 11/03/19 18:22 65 147/52 11/03/19 17:00 66 16 99 30 11/03/19 16:00 97.3 65 18 147/52 (83) 100 11/03/19 15:39 65 17 99 30 11/03/19 15:16 60 11/03/19 12:50 59 16 100 30 11/03/19 12:00 96.0 55 16 155/49 (84) 100 11/03/19 12:00 52 11/03/19 10:46 53 16 100 30 11/03/19 09:29 63 19 100 30 I&O Intake and Output 11/03/19 11/04/19 19:00 07:00 Output Total 225 ml 350 ml Balance -225 ml -350 ml Output Urine Total 225 ml 350 ml # Voids 1 Dressing: saturated Cardiovascular: RSR Respiratory: decreased breath sounds Abdomen: soft, non-tender, present bowel sounds Extremities: edema, no cyanosis Laboratory Tests Test 11/03/19 12:18 11/03/19 17:40 11/03/19 20:30 11/04/19 04:00 POC Whole Blood Glucose 186 MG/DL (74-106) H 170 MG/DL (74-106) H 171 MG/DL (74-106) H White Blood Count 8.7 K/UL (4.8-10.8) Red Blood Count 2.82 M/UL (4.70-6.10) L Hemoglobin 8.7 G/DL (14.2-18.0) L Hematocrit 28.2 % (42.0-52.0) L Mean Corpuscular Volume 100 FL (80-99) H Mean Corpuscular Hemoglobin 30.9 PG (27.0-31.0) Mean Corpuscular Hemoglobin Concent 30.9 G/DL (32.0-36.0) L Red Cell Distribution Width 16.3 % (11.6-14.8) H Platelet Count 144 K/UL (150-450) L Mean Platelet Volume 8.2 FL (6.5-10.1) Neutrophils (%) (Auto) 83.0 % (45.0-75.0) H Lymphocytes (%) (Auto) 10.8 % (20.0-45.0) L Monocytes (%) (Auto) 5.0 % (1.0-10.0) Eosinophils (%) (Auto) 0.8 % (0.0-3.0) Basophils (%) (Auto) 0.3 % (0.0-2.0) Sodium Level 131 MMOL/L (136-145) L Potassium Level 3.6 MMOL/L (3.5-5.1) Chloride Level 94 MMOL/L (98-107) L Carbon Dioxide Level 32 MMOL/L (21-32) Anion Gap 5 mmol/L (5-15) Blood Urea Nitrogen 65 mg/dL (7-18) H Creatinine 4.1 MG/DL (0.55-1.30) H Estimat Glomerular Filtration Rate 14.1 mL/min (>60) Glucose Level 130 MG/DL (74-106) H Calcium Level 9.1 MG/DL (8.5-10.1) Phosphorus Level 4.5 MG/DL (2.5-4.9) Magnesium Level 2.3 MG/DL (1.8-2.4) Total Bilirubin 0.3 MG/DL (0.2-1.0) Aspartate Amino Transf (AST/SGOT) 25 U/L (15-37) Alanine Aminotransferase (ALT/SGPT) 21 U/L (12-78) Alkaline Phosphatase 96 U/L (46-116) C-Reactive Protein, Quantitative 2.9 mg/dL (0.00-0.90) H Total Protein 5.5 G/DL (6.4-8.2) L Albumin 2.1 G/DL (3.4-5.0) L Globulin 3.4 g/dL Albumin/Globulin Ratio 0.6 (1.0-2.7) L Test 11/04/19 05:49 POC Whole Blood Glucose 138 MG/DL (74-106) H Plan Problems: (1) Hypercarbia (2) Pleural effusion (3) Chronic renal failure (4) Anemia (5) CHF (congestive heart failure) (6) Bacteremia (7) Cellulitis Assessment & Plan: penile swelling improved no active bleeding reyes okay will monitor (8) Hypoglycemia (9) Hyponatremia (10) ATN (acute tubular necrosis) (11) Metabolic acidosis (12) Pneumonia (13) Cellulitis of foot Assessment & Plan: Pt presented on admission with Bilat TMA. Pressure injuries both heels. Stable dry necrosis note to Plantar /lateral L TMA. L Heel is boggy with non- Blanchable erythema. . R Heel Boggy with Non-Blanchable erythema.Haemosiderin with Xerosis skin noted to R and L lower ext. Darker skin tone without erythema , induration or fluctuance Medial L Malleolus. Darker skin tone without erythema or induration noted to sacrum. Tx.Plan: Apply Moisture Barrier Paste to Sacrum. Cover with Optifoam drsg.Change every 3 days and prn. Apply Betadine to eschar plantar/lateral L TMA . Cover with Optifoam drsg. Change every 3 days and prn. Apply Cavilon Skin Barrier to both heels and Malleoli. Cover each site with Optifoam drsg. Change every 7days and prn. Reposition at least every 2hours or as tolerated. Off load heels with pillow.Hx prior amputation prior MRI and plain films reviewed wounds stable and local care being provided no abscess noted cont with dressings elevate heels with pillow turn q2h off load pressure air mattress will follow with recs thank you (14) Osteomyelitis (15) History of hypertension (16) Renal failure (ARF), acute on chronic (17) Acute encephalopathy (18) Diabetes mellitus (19) Hypertension (20) Cholelithiasis Assessment & Plan: US reviewed exam benign asymptomatic cholelithiasis alk phos mild elevated lfts improved trend labs no acute surgical intervention planned Liver: Liver measures 14.8 cm. No intrahepatic bile duct dilation. Gallbladder: Small stone in the gallbladder. No significant gallbladder wall thickening or pericholecystic fluid. Negative sonographic Bianchi's sign. Common bile duct: Normal common bile duct measuring 4.5 mm. No stones. No dilation. Pancreas: Pancreas is not visualized due to overlying bowel gas. Kidneys: Right kidney measures 9.1 cm in length. No hydronephrosis or stone. Left kidney not visualized due to patient's body habitus. Spleen: Spleen measures 9.4 cm. No focal lesion. Aorta: Visualized portions of the aorta are grossly unremarkable. The mid and distal portions are obscured by bowel gas. Inferior vena cava: Unremarkable. Free fluid: No ascites. Tubes, lines and devices: Reyes catheter in a decompressed bladder. IMPRESSION: Small stone in the gallbladder. No significant gallbladder wall thickening or pericholecystic fluid. Negative sonographic Bianchi's sign. Additional Comments note: late entry for patient seen 11/02 but because of surgeries was unable to complete note until later. Mariusz Diehl Nov 04, 2019 09:24
--- NOTE | 2019-11-04 09:44 | General Progress Note ---
Assessment/Plan Problem List: (1) Hypertension ICD Codes: I10 - Essential (primary) hypertension SNOMED: 15762471 (2) Diabetes mellitus ICD Codes: E11.9 - Type 2 diabetes mellitus without complications SNOMED: 46721692 (3) Anemia ICD Codes: D64.9 - Anemia, unspecified SNOMED: 849085387 (4) Cholelithiasis ICD Codes: K80.20 - Calculus of gallbladder without cholecystitis without obstruction SNOMED: 360584928 (5) CHF (congestive heart failure) ICD Codes: I50.9 - Heart failure, unspecified SNOMED: 53282271 Assessment/Plan: patient on Xerallto stool ob positive but no overt GIB patient on BIPAP and not stable for GI procedures at this time stable H&H fu cbc repeat stool ob ppi bid GI procedures when patient is more stable bowel regimen management of hyponatremia per nephrology Subjective ROS Limited/Unobtainable: No Allergies: Coded Allergies: PENICILLINS (Verified Allergy, Unknown, 10/25/19) tolerated Ceftriaxone Objective Last 24 Hour Vital Signs Date Time Temp Pulse Resp B/P (MAP) Pulse Ox O2 Delivery O2 Flow Rate FiO2 11/04/19 09:00 65 127/58 11/04/19 08:54 98 17 96 30 11/04/19 08:00 Bi-pap 12.0 Bi-pap 12.0 11/04/19 08:00 30 11/04/19 08:00 98.1 65 17 127/58 (81) 97 11/04/19 06:36 71 17 97 30 11/04/19 05:06 72 17 96 30 11/04/19 04:00 97.9 70 18 139/58 (85) 100 11/04/19 04:00 30 11/04/19 03:30 66 11/04/19 03:21 67 16 96 30 11/04/19 01:25 67 16 98 30 11/04/19 00:00 96.4 61 18 138/58 (84) 100 11/03/19 23:27 68 11/03/19 23:16 66 16 97 30 11/03/19 21:15 64 16 99 30 11/03/19 21:00 Bi-pap 12.0 Bi-pap 12.0 11/03/19 20:00 97.2 61 18 145/65 (91) 100 11/03/19 20:00 30 11/03/19 19:25 59 11/03/19 19:10 64 17 100 30 11/03/19 19:08 55 17 100 Bi-Pap 30 11/03/19 18:22 65 147/52 11/03/19 17:00 66 16 99 30 11/03/19 16:00 97.3 65 18 147/52 (83) 100 11/03/19 15:39 65 17 99 30 11/03/19 15:16 60 11/03/19 12:50 59 16 100 30 11/03/19 12:00 96.0 55 16 155/49 (84) 100 11/03/19 12:00 52 11/03/19 10:46 53 16 100 30 Intake and Output 11/03/19 11/04/19 19:00 07:00 Output Total 225 ml 350 ml Balance -225 ml -350 ml Output Urine Total 225 ml 350 ml # Voids 1 Laboratory Tests 11/03/19 12:18: POC Whole Blood Glucose 186H 11/03/19 17:40: POC Whole Blood Glucose 170H 11/03/19 20:30: POC Whole Blood Glucose 171H 11/04/19 04:00: White Blood Count 8.7, Red Blood Count 2.82L, Hemoglobin 8.7L, Hematocrit 28.2L , Mean Corpuscular Volume 100H, Mean Corpuscular Hemoglobin 30.9, Mean Corpuscular Hemoglobin Concent 30.9L, Red Cell Distribution Width 16.3H, Platelet Count 144L, Mean Platelet Volume 8.2, Neutrophils (%) (Auto) 83.0H, Lymphocytes (%) (Auto) 10.8L, Monocytes (%) (Auto) 5.0, Eosinophils (%) (Auto) 0.8, Basophils (%) (Auto) 0.3, Sodium Level 131L, Potassium Level 3.6, Chloride Level 94L, Carbon Dioxide Level 32, Anion Gap 5, Blood Urea Nitrogen 65H, Creatinine 4.1H, Estimat Glomerular Filtration Rate 14.1, Glucose Level 130H, Calcium Level 9.1, Phosphorus Level 4.5, Magnesium Level 2.3, Total Bilirubin 0.3, Aspartate Amino Transf (AST/SGOT) 25, Alanine Aminotransferase (ALT/SGPT) 21, Alkaline Phosphatase 96, C-Reactive Protein, Quantitative 2.9H, Total Protein 5.5L, Albumin 2.1L, Globulin 3.4, Albumin/Globulin Ratio 0.6L 11/04/19 05:49: POC Whole Blood Glucose 138H Height (Feet): 5 Height (Inches): 8.00 Weight (Pounds): 199 General Appearance: no apparent distress EENT: normal ENT inspection Neck: supple Cardiovascular: normal rate Respiratory/Chest: decreased breath sounds Abdomen: normal bowel sounds, non tender, soft Extremities: non-tender Lawrence Humphreys MD Nov 04, 2019 09:44
--- NOTE | 2019-11-04 09:48 | General Progress Note ---
Assessment/Plan Assessment/Plan: DOS: 11/04/[address] Chang ASSESSMENT AND RECOMMENDATIONS: # Anemia of chronic kidney disease, multifactorial --> Anemia w/u has been reviewed. --> no evidence of hemolysis is noted, peripheral smear has been reviewed --> hgb goal is >7, transfuse as needed --> currently remains stable, occult blood negative --> hgb 8.4->8.6->8.3->8->8.2 --> some blood loss due to hematuria after inflated reyes pulled 8/6 am --> EPOGEN Started # Acute kidney injury r/o potential reversible component --> reviewed meds, those that are renally cleared removed --> as per renal recs, appreciated --> cr 3.5-->4.2 # Hypertension, essential --> sbp goal is <140, consider anti-htn as needed --> currently started on hyralazine 25mg po q6h prn sbp >140 # CHF - hx of CHf --> diuresis with lasix as needed --> cardiology recs appreciated prior adm #. Leukocytosis with underlying infection stress reaction HISTORY --> per id and better --> for infection, ABX ctx/vanc #. Bilateral lower extremity amputee, metatarsal several years ago #. Hyperkalemia -- kayxelate as needed #. Dvt ppx scds #. AMS -->Seen by Neuro, EEG ordered and MRI Brain pending --> Ammonia level normal and CT Head reviewed # CKD --> ON HD The time the note was entered does not necessarily correspond to the time the patient was seen. GREATLY APPRECIATE CONSULTATION. Subjective Date patient seen: Nov 04, 2019 Time patient seen: 09:45 ROS Limited/Unobtainable: Yes Allergies: Coded Allergies: PENICILLINS (Verified Allergy, Unknown, 10/25/19) tolerated Ceftriaxone Subjective 11/02: Neuro Evaluation d/w pulmonary team 11/03: migdalia ALEXANDER seen by neuro MRI Brain pending, HD at bedside now Objective Last 24 Hour Vital Signs Date Time Temp Pulse Resp B/P (MAP) Pulse Ox O2 Delivery O2 Flow Rate FiO2 11/04/19 09:00 65 127/58 11/04/19 08:54 98 17 96 30 11/04/19 08:00 Bi-pap 12.0 Bi-pap 12.0 11/04/19 08:00 30 11/04/19 08:00 98.1 65 17 127/58 (81) 97 11/04/19 06:36 71 17 97 30 11/04/19 05:06 72 17 96 30 11/04/19 04:00 97.9 70 18 139/58 (85) 100 11/04/19 04:00 30 11/04/19 03:30 66 11/04/19 03:21 67 16 96 30 11/04/19 01:25 67 16 98 30 11/04/19 00:00 96.4 61 18 138/58 (84) 100 11/03/19 23:27 68 11/03/19 23:16 66 16 97 30 11/03/19 21:15 64 16 99 30 11/03/19 21:00 Bi-pap 12.0 Bi-pap 12.0 11/03/19 20:00 97.2 61 18 145/65 (91) 100 11/03/19 20:00 30 11/03/19 19:25 59 11/03/19 19:10 64 17 100 30 11/03/19 19:08 55 17 100 Bi-Pap 30 11/03/19 18:22 65 147/52 11/03/19 17:00 66 16 99 30 11/03/19 16:00 97.3 65 18 147/52 (83) 100 11/03/19 15:39 65 17 99 30 11/03/19 15:16 60 11/03/19 12:50 59 16 100 30 11/03/19 12:00 96.0 55 16 155/49 (84) 100 11/03/19 12:00 52 11/03/19 10:46 53 16 100 30 Intake and Output 11/03/19 11/04/19 19:00 07:00 Output Total 225 ml 350 ml Balance -225 ml -350 ml Output Urine Total 225 ml 350 ml # Voids 1 Laboratory Tests 11/03/19 12:18: POC Whole Blood Glucose 186H 11/03/19 17:40: POC Whole Blood Glucose 170H 11/03/19 20:30: POC Whole Blood Glucose 171H 11/04/19 04:00: White Blood Count 8.7, Red Blood Count 2.82L, Hemoglobin 8.7L, Hematocrit 28.2L , Mean Corpuscular Volume 100H, Mean Corpuscular Hemoglobin 30.9, Mean Corpuscular Hemoglobin Concent 30.9L, Red Cell Distribution Width 16.3H, Platelet Count 144L, Mean Platelet Volume 8.2, Neutrophils (%) (Auto) 83.0H, Lymphocytes (%) (Auto) 10.8L, Monocytes (%) (Auto) 5.0, Eosinophils (%) (Auto) 0.8, Basophils (%) (Auto) 0.3, Sodium Level 131L, Potassium Level 3.6, Chloride Level 94L, Carbon Dioxide Level 32, Anion Gap 5, Blood Urea Nitrogen 65H, Creatinine 4.1H, Estimat Glomerular Filtration Rate 14.1, Glucose Level 130H, Calcium Level 9.1, Phosphorus Level 4.5, Magnesium Level 2.3, Total Bilirubin 0.3, Aspartate Amino Transf (AST/SGOT) 25, Alanine Aminotransferase (ALT/SGPT) 21, Alkaline Phosphatase 96, C-Reactive Protein, Quantitative 2.9H, Total Protein 5.5L, Albumin 2.1L, Globulin 3.4, Albumin/Globulin Ratio 0.6L 11/04/19 05:49: POC Whole Blood Glucose 138H Height (Feet): 5 Height (Inches): 8.00 Weight (Pounds): 199 Objective Constitutional: lethargic HEENT: Denies: no symptoms, eye pain, blurred vision, tearing, double vision, ear pain, ear discharge, nose pain, nose congestion, throat pain, throat swelling, mouth pain, mouth swelling, other Cardiovascular: Denies: no symptoms, chest pain, edema, irregular heart rate, lightheadedness, palpitations, syncope, other Respiratory: Denies: no symptoms, cough, shortness of breath, SOB with exertion , SOB at rest, sputum, wheezing, other Gastrointestinal/Abdominal: Denies: no symptoms, abdomen distended, abdominal pain, black stools, tarry stools, blood in stool, constipated, diarrhea, difficulty swallowing, nausea, poor appetite, poor fluid intake, rectal bleeding , vomiting, other Genitourinary: Denies: no symptoms, burning, discharge, frequency, flank pain, hematuria, incontinence, pain, urgency, other Neurologic/Psychiatric: Confused. Endocrine: no symptoms, excessive sweating, flushing, intolerance to cold, intolerance to heat, increased hunger, increased thirst, increased urine, unexplained weight gain, unexplained weight loss, other Esther Locke NP Nov 04, 2019 09:48
--- NOTE | 2019-11-04 11:15 | Consultation ---
DATE OF CONSULTATION: 11/03/2019 CARDIOLOGY CONSULTATION CONSULTING PHYSICIAN: Chris Hanley MD. ATTENDING PHYSICIAN: Ayush Chang MD. REFERRING PHYSICIAN: Melvin Rizzo MD. REASON FOR CONSULTATION: Management of bradycardia. HISTORY OF PRESENT ILLNESS: The patient is a very unfortunate 79-year-old male with multiple medical history including diabetes mellitus, hypertension, and first-degree AV node block, who presented to the emergency department initially on October 21 from [facility] for hypoglycemia. Apparently, the patient was short of breath. EMS was called. Blood in the field was 22. The patient was given glucagon and was brought into [facility] Emergency Department. At the time of arrival of EMS, the patient was altered and lethargic; however, after D10 administration and glucagon he became more alert and awake. The patient has been admitted to be hospitalized ever since for management of anemia of chronic disease and was started on Epogen. The patient also suffered from acute kidney injury, hypertension, and also congestive heart failure. Cardiology consultation was made at the request of Dr. Rizzo for evaluation and management of bradycardia. PAST MEDICAL HISTORY: 1. Diabetes mellitus. 2. AV chad block type 1. 3. GERD. 4. Hypertension. 5. Anemia. ALLERGIES: Penicillin. PAST SURGICAL HISTORY: None. FAMILY HISTORY: No premature coronary artery disease in first-degree relatives. SOCIAL HISTORY: Denies any tobacco, alcohol, or illicit drug use. Resident of [facility]. MEDICATIONS: List of medications including allopurinol 300 mg p.o. daily, atenolol 100 mg p.o. daily, atorvastatin 10 mg p.o. nightly, Colace 100 mg p.o. daily, hydroxyzine 50 mg x1 dose p.r.n. pruritus, 21 mg sublingual at bedtime p.r.n. insomnia, Protonix 40 mg p.o. daily, Actos 15 mg p.o. daily, rivaroxaban 20 mg p.o. daily, senna 8.6 mg nightly p.r.n. constipation, and cholecalciferol 125 mcg p.o. daily. REVIEW OF SYSTEMS: CONSTITUTIONAL: Denies any fever, chills, night sweats, or weakness. HEENT: Denies any headache, diplopia, or blurred vision. CARDIOVASCULAR: Denies any chest pain or shortness of breath. Positive for bradycardia on the vital sign measurements. No PND or orthopnea. No upper extremity swelling. PULMONARY: Denies any cough or wheezing. GASTROINTESTINAL: Denies any nausea, vomiting, diarrhea, constipation, abdominal pain, or GI bleed. GENITOURINARY: Denies any hematuria, dysuria, or incontinence. NEUROLOGIC: Denies any motor dysfunction, sensory deficit, or altered speech. PHYSICAL EXAMINATION: VITAL SIGNS: Blood pressure was 147/52, heart rate of 55, respirations of 17, O2 saturation 100%, temperature 97.2 degrees Fahrenheit. GENERAL: The patient is a very unfortunate 79-year-old gentleman, in no apparent respiratory distress. HEENT: Atraumatic and normocephalic. Anicteric. Pupils are equal, round, and reactive to light and accommodation. Extraocular muscles intact. NECK: JVP less than 5 cm. No carotid bruit. Carotid upstroke is 2+ bilaterally. CARDIOVASCULAR: Normal S1, S2. Regular rate and rhythm. No murmurs, gallops, or rubs. Bradycardic. LUNGS: Bilateral rhonchi. ABDOMEN: Soft, nontender, and nondistended. No hepatosplenomegaly. Positive bowel sounds. EXTREMITIES: Bilateral partial foot amputations. LABORATORY FINDINGS: WBC is 9.0, hemoglobin of 8.7, hematocrit of 28.2, and platelet count 160,000. Sodium 132, potassium 3.2, chloride 95, bicarbonate 33, BUN of 60, creatinine 4.2. Glucose is 173. Calcium is 8.7. Magnesium is 2.3. ProBNP at the time of admission was 15,717. Troponin I 0.001 at time of admission. INR is 1.2. COVID-19 PCR test was negative. Chest x-ray, bilateral hazy opacity with associated bilateral pleural effusion, possible pneumonia. 2D echocardiography shows normal LV systolic function with LVEF of about 55%, trace MR, and right ventricular systolic pressure measured at 22 mmHg. ASSESSMENT AND PLAN: The patient is a very unfortunate 79-year-old gentleman seen in Cardiology consultation. 1. Bradycardia. This could be multifactorial. The patient has recently had NG tube feeding. Could be vasovagal reaction. In the outpatient setting, he was on atenolol, however, this medication was not continued in the inpatient setting. We will continue monitoring the heart rate. Currently heart rate is well controlled in 70s. 2. History of congestive heart failure by records, 2D echocardiography shows normal LV systolic function with the LVEF of about 55%. Required to review the images and rule out diastolic heart failure. Initial BNP at the time of admission was severely elevated. 3. Multiple risk factors for coronary artery disease include diabetes mellitus and hypertension. 4. History of peripheral vascular disease, status post partial foot amputation. 5. Acute on chronic renal failure. 6. Anemia of chronic disease. I would like to thank Dr. Rizzo for the courtesy of this consultation. Chris Hanley M.D. DR: NATALIE JOB#: [id number] CC:
--- NOTE | 2019-11-04 13:32 | Nephrology Progress Note ---
Assessment/Plan Problem List: (1) Renal failure (ARF), acute on chronic (2) Metabolic acidosis (3) Electrolyte imbalance Assessment: Hyponatremia and hyperkalemia (4) Anemia (5) CHF (congestive heart failure) Assessment 79-year-old male is admitted for hypoglycemia Patient has renal failure which appears to be acute on chronic Hyperkalemia Hyponatremia CHF, pleural effusion, pneumonia Anemia Metabolic acidosis Hypothyroidism Plan November 03: Dialyzed this morning. Stable from renal standpoint of view. Due for insertion of tunneled catheter tomorrow. November 02: Dialyzed yesterday. Will DC IV fluid. Dialysis tomorrow. Potassium supplement given. Per orders. November 01: Patient currently being dialyzed. Tolerating well. Labs will be reviewed. Continue per consultants. October 31: Patient was dialyzed yesterday. Clinically doing better. We will continue to monitor renal parameters. Dialysis as needed. October 30: Serum creatinine rising. Patient due to have a temporary dialysis catheter and due for dialysis today. Will continue to follow-up renal parameters. Patient remains full code. October 29: Serum creatinine rising. Serum creatinine 4.5 today. Calculated creatinine clearance is 12. Kidney ultrasound ordered yesterday results were reviewed. Patient appears to have acute renal failure due to underlying sepsis and nephrotoxic medications. Patient requires dialysis treatment. Ordered to obtain consent from the responsible alliance party. Will communicate with PMD and or he is coverage. October 28: Serum creatinine higher to 4.2 today. Blood pressure appears more stable. In view of worsening renal failure, will order stat kidney ultrasound and urine studies. Continue to monitor renal parameters. Patient is full code. Worsening renal parameters may lead to hemodialysis treatment. October 27: Patient pulled out the Lyles catheter. Serum creatinine went up to 3.8. Blood pressure somewhat low. Heart rate in 50s. Will discontinue Coreg. We will continue to monitor renal parameters. October 26: Serum creatinine lower again today. Will abort the dialysis plan. Continue per consultants. Continue to monitor renal parameters. Medication list reviewed. October 25: Clinically improving. Serum creatinine lower. Urine output increased. No dialysis planned at this time. Continue per consultants. October 24: Patient's respiratory status somewhat improved. Serum creatinine down to 3.9. Urinary output somewhat increased. Will hold placement of dialysis catheter at this time. Blood pressure medication adjusted. Continue to monitor renal parameters. Per orders. October 23: Patient remains on BiPAP. More Kayexalate ordered. Will consider hemodialysis to correct fluid overload and hyperkalemia and acidosis. Will discuss with PMD. Meanwhile IV Synthroid started. Discussed with RN Timothy Patient already transfused 1 unit for severe anemia previously Will initiate Epogen 10,000 units subcutaneously 1 dose of IV iron Venofer 200 g IV Kayexalate for hyperkalemia as needed 2D echocardiogram ordered, ejection fraction is reported normal Kidney ultrasound ordered: Kidneys: Right kidney measures 9.1 cm in length. No hydronephrosis or stone. Left kidney not visualized due to patient's body habitus. Avoid nephrotoxic's Monitor renal parameters Will hold insulin and hypoglycemic agents until hypoglycemia is reasonably resolved Subjective ROS Limited/Unobtainable: No Constitutional: Reports: malaise Objective Objective Last 24 Hour Vital Signs Date Time Temp Pulse Resp B/P (MAP) Pulse Ox O2 Delivery O2 Flow Rate FiO2 11/04/19 11:26 82 18 94 11/04/19 10:30 77 16 96 30 11/04/19 09:00 65 127/58 11/04/19 08:54 98 17 96 30 11/04/19 08:00 Bi-pap 12.0 Bi-pap 12.0 11/04/19 08:00 30 11/04/19 08:00 98.1 65 17 127/58 (81) 97 11/04/19 07:41 65 11/04/19 06:36 71 17 97 30 11/04/19 05:06 72 17 96 30 11/04/19 04:00 97.9 70 18 139/58 (85) 100 11/04/19 04:00 30 11/04/19 03:30 66 11/04/19 03:21 67 16 96 30 11/04/19 01:25 67 16 98 30 11/04/19 00:00 96.4 61 18 138/58 (84) 100 11/03/19 23:27 68 11/03/19 23:16 66 16 97 30 11/03/19 21:15 64 16 99 30 11/03/19 21:00 Bi-pap 12.0 Bi-pap 12.0 11/03/19 20:00 97.2 61 18 145/65 (91) 100 11/03/19 20:00 30 11/03/19 19:25 59 11/03/19 19:10 64 17 100 30 11/03/19 19:08 55 17 100 Bi-Pap 30 11/03/19 18:22 65 147/52 11/03/19 17:00 66 16 99 30 11/03/19 16:00 97.3 65 18 147/52 (83) 100 11/03/19 15:39 65 17 99 30 11/03/19 15:16 60 Intake and Output 11/03/19 11/04/19 19:00 07:00 Output Total 225 ml 350 ml Balance -225 ml -350 ml Output Urine Total 225 ml 350 ml # Voids 1 Current Medications Medications (Trade) Dose Ordered Sig/Cammy Route PRN Reason Start Time Stop Time Status Last Admin Dose Admin Acetaminophen (Tylenol) 650 mg Q6H PRN NG Pain 3-5 11/03/19 11:15 12/02/19 11:14 Amlodipine Besylate (Norvasc) 5 mg BID NG 11/03/19 18:00 11/25/19 08:59 11/03/19 18:22 Apixaban (Eliquis) 2.5 mg BID NG 11/03/19 18:00 01/31/20 17:59 11/04/19 08:59 Atorvastatin Calcium (Lipitor) 10 mg BEDTIME NG 11/03/19 21:00 01/21/20 20:59 11/03/19 21:02 Chlorhexidine Gluconate (Yi-Hex 2%) 1 applic DAILY@1999 TOPIC 11/03/19 20:00 01/31/20 19:59 11/03/19 21:01 Dextrose (Dextrose 50%) 25 ml Q30M PRN IV Hypoglycemia 11/03/19 11:15 01/20/20 21:44 Dextrose (Dextrose 50%) 50 ml Q30M PRN IV Hypoglycemia 11/03/19 11:15 01/20/20 21:44 Docusate Sodium (Colace) 100 mg THREE TIMES A DAY NG 11/03/19 13:00 12/02/19 17:59 11/04/19 13:13 Epoetin William (Epoetin William(ESRD on dialysis)) 10,000 unit FRI-WED-FRI SUBQ 11/03/19 21:00 02/01/20 20:59 11/03/19 21:02 Haloperidol (Haldol) 5 mg Q12H PRN NG Agitation 8/12/20 11:15 12/17/19 11:14 Haloperidol Lactate (Haldol) 5 mg Q6H PRN IM Agitation 11/03/19 11:15 12/10/19 11:14 Hydralazine HCl (Apresoline) 10 mg Q4H PRN IV For High Blood Pressure 11/03/19 11:15 01/24/20 11:14 Insulin Aspart (NovoLOG) BEFORE MEALS AND HS SUBQ 11/03/19 11:30 01/31/20 06:29 11/03/19 21:11 Lactulose (Cephulac) 10 gm BID NG 11/03/19 18:00 12/01/19 08:59 11/04/19 09:00 Levothyroxine Sodium (Synthroid) 75 mcg DAILY@0630 ORAL 11/04/19 06:30 12/04/19 06:29 11/04/19 05:51 Pantoprazole (Protonix) 40 mg EVERY 12 HOURS IVP 11/03/19 21:00 11/22/19 08:59 11/04/19 09:00 Polyethylene Glycol (Miralax) 17 gm BEDTIME NG 11/03/19 21:00 12/01/19 20:59 11/03/19 21:01 Sennosides (Senokot) 8.6 mg HSPRN PRN NG Constipation 11/03/19 16:15 12/02/19 16:14 Sevelamer Carbonate (Renvela) 1,600 mg THREE TIMES A DAY NG 11/03/19 13:00 01/21/20 17:59 11/04/19 13:13 Laboratory Tests 11/03/19 17:40: POC Whole Blood Glucose 170H 11/03/19 20:30: POC Whole Blood Glucose 171H 11/04/19 04:00: White Blood Count 8.7, Red Blood Count 2.82L, Hemoglobin 8.7L, Hematocrit 28.2L , Mean Corpuscular Volume 100H, Mean Corpuscular Hemoglobin 30.9, Mean Corpuscular Hemoglobin Concent 30.9L, Red Cell Distribution Width 16.3H, Platelet Count 144L, Mean Platelet Volume 8.2, Neutrophils (%) (Auto) 83.0H, Lymphocytes (%) (Auto) 10.8L, Monocytes (%) (Auto) 5.0, Eosinophils (%) (Auto) 0.8, Basophils (%) (Auto) 0.3, Sodium Level 131L, Potassium Level 3.6, Chloride Level 94L, Carbon Dioxide Level 32, Anion Gap 5, Blood Urea Nitrogen 65H, Creatinine 4.1H, Estimat Glomerular Filtration Rate 14.1, Glucose Level 130H, Calcium Level 9.1, Phosphorus Level 4.5, Magnesium Level 2.3, Total Bilirubin 0.3, Aspartate Amino Transf (AST/SGOT) 25, Alanine Aminotransferase (ALT/SGPT) 21, Alkaline Phosphatase 96, C-Reactive Protein, Quantitative 2.9H, Total Protein 5.5L, Albumin 2.1L, Globulin 3.4, Albumin/Globulin Ratio 0.6L 11/04/19 05:49: POC Whole Blood Glucose 138H 11/04/19 10:29: Arterial Blood pH 7.376, Arterial Blood Partial Pressure CO2 56.6*H, Arterial Blood Partial Pressure O2 73.6L, Arterial Blood HCO3 32.4H, Arterial Blood Oxygen Saturation 94.1L, Arterial Blood Base Excess 6.1H, Kristian Test Positive 11/04/19 12:14: POC Whole Blood Glucose 108H Height (Feet): 5 Height (Inches): 8.00 Weight (Pounds): 199 General Appearance: no apparent distress Cardiovascular: normal rate Respiratory/Chest: decreased breath sounds Abdomen: distended Objective No change Naveed Vanegas MD Nov 04, 2019 13:32
--- NOTE | 2019-11-04 15:26 | Pulmonology Progress Note ---
Reema Hanna SENIOR COUNSEL 11/04/19 1526: Subjective ROS Limited/Unobtainable: No Allergies: Coded Allergies: PENICILLINS (Verified Allergy, Unknown, 10/25/19) tolerated Ceftriaxone Subjective transferred to TOYIN 11/02 more awake and responsive today' ABG stable , off Bipap and on o2 voa NC no resp distress CXR 11/02 not much change starting TF via NGT still pending neuro eval remains afebrile, no leukocytosis Objective Last 24 Hour Vital Signs Date Time Temp Pulse Resp B/P (MAP) Pulse Ox O2 Delivery O2 Flow Rate FiO2 11/04/19 14:00 98.2 79 19 168/70 (102) 96 11/04/19 12:00 4.0 11/04/19 12:00 98.2 79 17 168/70 (102) 96 11/04/19 12:00 79 11/04/19 11:30 4.0 11/04/19 11:26 82 18 94 11/04/19 10:30 77 16 96 30 11/04/19 09:00 65 127/58 11/04/19 08:54 98 17 96 30 11/04/19 08:00 Bi-pap 12.0 Bi-pap 12.0 11/04/19 08:00 30 11/04/19 08:00 98.1 65 17 127/58 (81) 97 11/04/19 07:41 65 11/04/19 06:36 71 17 97 30 11/04/19 05:06 72 17 96 30 11/04/19 04:00 97.9 70 18 139/58 (85) 100 11/04/19 04:00 30 11/04/19 03:30 66 11/04/19 03:21 67 16 96 30 11/04/19 01:25 67 16 98 30 11/04/19 00:00 96.4 61 18 138/58 (84) 100 11/03/19 23:27 68 11/03/19 23:16 66 16 97 30 11/03/19 21:15 64 16 99 30 11/03/19 21:00 Bi-pap 12.0 Bi-pap 12.0 11/03/19 20:00 97.2 61 18 145/65 (91) 100 11/03/19 20:00 30 11/03/19 19:25 59 11/03/19 19:10 64 17 100 30 11/03/19 19:08 55 17 100 Bi-Pap 30 11/03/19 18:22 65 147/52 11/03/19 17:00 66 16 99 30 11/03/19 16:00 97.3 65 18 147/52 (83) 100 11/03/19 15:39 65 17 99 30 Intake and Output 11/03/19 11/04/19 19:00 07:00 Output Total 225 ml 350 ml Balance -225 ml -350 ml Output Urine Total 225 ml 350 ml # Voids 1 Objective General Appearance: no apparent distress, Croatian speaking confused male, Lines, tubes and drains: R femoral HEENT: normocephalic, atraumatic, anicteric, mucous membranes moist, O2 4 L via NC, NGT Respiratory/Chest: few scattered crackles, no exp wheezing, Cardiovascular/Chest: normal rate, regular rhythm Abdomen: normal bowel sounds, non tender, soft Extremities: partially amputated BL foot Skin Exam: warm/dry Neurologic: abnormal gait, not much responsive, Musculoskeletal: atrophy BLE Laboratory Tests 11/03/19 17:40: POC Whole Blood Glucose 170H 11/03/19 20:30: POC Whole Blood Glucose 171H 11/04/19 04:00: White Blood Count 8.7, Red Blood Count 2.82L, Hemoglobin 8.7L, Hematocrit 28.2L , Mean Corpuscular Volume 100H, Mean Corpuscular Hemoglobin 30.9, Mean Corpuscular Hemoglobin Concent 30.9L, Red Cell Distribution Width 16.3H, Platelet Count 144L, Mean Platelet Volume 8.2, Neutrophils (%) (Auto) 83.0H, Lymphocytes (%) (Auto) 10.8L, Monocytes (%) (Auto) 5.0, Eosinophils (%) (Auto) 0.8, Basophils (%) (Auto) 0.3, Sodium Level 131L, Potassium Level 3.6, Chloride Level 94L, Carbon Dioxide Level 32, Anion Gap 5, Blood Urea Nitrogen 65H, Creatinine 4.1H, Estimat Glomerular Filtration Rate 14.1, Glucose Level 130H, Calcium Level 9.1, Phosphorus Level 4.5, Magnesium Level 2.3, Total Bilirubin 0.3, Aspartate Amino Transf (AST/SGOT) 25, Alanine Aminotransferase (ALT/SGPT) 21, Alkaline Phosphatase 96, C-Reactive Protein, Quantitative 2.9H, Total Protein 5.5L, Albumin 2.1L, Globulin 3.4, Albumin/Globulin Ratio 0.6L 11/04/19 05:49: POC Whole Blood Glucose 138H 11/04/19 10:29: Arterial Blood pH 7.376, Arterial Blood Partial Pressure CO2 56.6*H, Arterial Blood Partial Pressure O2 73.6L, Arterial Blood HCO3 32.4H, Arterial Blood Oxygen Saturation 94.1L, Arterial Blood Base Excess 6.1H, Kristian Test Positive 11/04/19 12:14: POC Whole Blood Glucose 108H Current Medications Medications (Trade) Dose Ordered Sig/Cammy Route PRN Reason Start Time Stop Time Status Last Admin Dose Admin Acetaminophen (Tylenol) 650 mg Q6H PRN NG Pain 3-5 11/03/19 11:15 12/02/19 11:14 Amlodipine Besylate (Norvasc) 5 mg BID NG 11/03/19 18:00 11/25/19 08:59 11/03/19 18:22 Apixaban (Eliquis) 2.5 mg BID NG 11/03/19 18:00 01/31/20 17:59 11/04/19 08:59 Atorvastatin Calcium (Lipitor) 10 mg BEDTIME NG 11/03/19 21:00 01/21/20 20:59 11/03/19 21:02 Chlorhexidine Gluconate (Yi-Hex 2%) 1 applic DAILY@2000 TOPIC 11/03/19 20:00 01/31/20 19:59 11/03/19 21:01 Dextrose (Dextrose 50%) 25 ml Q30M PRN IV Hypoglycemia 11/03/19 11:15 01/20/20 21:44 Dextrose (Dextrose 50%) 50 ml Q30M PRN IV Hypoglycemia 11/03/19 11:15 01/20/20 21:44 Docusate Sodium (Colace) 100 mg THREE TIMES A DAY NG 11/03/19 13:00 12/02/19 17:59 11/04/19 13:13 Epoetin William (Epoetin William(ESRD on dialysis)) 10,000 unit FRI-FRI-FRI SUBQ 11/03/19 21:00 02/01/20 20:59 11/03/19 21:02 Haloperidol (Haldol) 5 mg Q12H PRN NG Agitation 11/03/19 11:15 12/17/19 11:14 Haloperidol Lactate (Haldol) 5 mg Q6H PRN IM Agitation 11/03/19 11:15 12/10/19 11:14 Hydralazine HCl (Apresoline) 10 mg Q4H PRN IV For High Blood Pressure 11/03/19 11:15 01/24/20 11:14 Insulin Aspart (NovoLOG) BEFORE MEALS AND HS SUBQ 11/03/19 11:30 01/31/20 06:29 11/03/19 21:11 Lactulose (Cephulac) 10 gm BID NG 11/03/19 18:00 12/01/19 08:59 11/04/19 09:00 Levothyroxine Sodium (Synthroid) 75 mcg DAILY@0630 ORAL 11/04/19 06:30 12/04/19 06:29 11/04/19 05:51 Pantoprazole (Protonix) 40 mg EVERY 12 HOURS IVP 11/03/19 21:00 11/22/19 08:59 11/04/19 09:00 Polyethylene Glycol (Miralax) 17 gm BEDTIME NG 11/03/19 21:00 12/01/19 20:59 11/03/19 21:01 Sennosides (Senokot) 8.6 mg HSPRN PRN NG Constipation 11/03/19 16:15 12/02/19 16:14 Sevelamer Carbonate (Renvela) 1,600 mg THREE TIMES A DAY NG 11/03/19 13:00 01/21/20 17:59 11/04/19 13:13 Assessment/Plan Assessment/Plan ASSESSMENT Acute hypoxemic hypercapnic respiratory failure requiring BiPAP Acute metabolic encephalopathy likely due to hypoglycemia Diabetes mellitus with initial hypoglycemia Probably pneumonia Aspiration risk Acute kidney injury on chronic kidney disease, requiring start of HD 10/30 Severe anemia requiring blood transfusion Metabolic acidosis Electrolyte imbalance :hyponatremia, hyperkalemia HTN with HTN urgency Dysphagia Hematuria 2 to pt pulled off his Lyles catheter Possibly DAYANA PLAN OF CARE TOYIN ABG this am improved off BiPAP titrate O2, pulm toilet will use BiPAP at HS and prn patient likely had DAYANA. recommend sleep study as OP CXR 11/02 -> Stable slightly increased bilateral pleural effusions. 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 3 days 10/21 and 10/24 rapid COVID NGT, abx as per ID recs -> Ceftriaxone , completed 10/30 ; s/p Vanco , completed Rx for PNA 7 days, remains afebrile no leucocytosis BCX 10/21 NGTD UCX NGT SCX if able Venous Duplex BLE 10/25 -> NGT CT head revealed bilateral mastoid disease; a new finding ID recommended ENT eval- pending- per primary team s/p HD 10/30 renal US placement of permanent HD catheter pending ECHO with pEF 55-60% on chronic a/c with Xarelto ?unclear reason monitor volumes swallow eval with aspiration risk diet texture as per ST recs with strict asp precautions and assistance with meals AMS 10/[address] head negative, off sedatives ammonia WNL NGT inserted for meds as per nephro recs NEED NEURO EVAL-per primary AMS 9mproving NGT in, start on NGT feeding repeat swallow eval in am asp precautions HgA1c -6.1 hold oral anti-glycemic SSI prn ; recommend sensitive SSI initial AMS was most likely due to episode of hypoglycemia CT head NGT for acute ICP x 2 renal US atrophic kidneys, no hydro avoid nephrotoxic s/p Kayexalate and sodium bicarb gentle IVF f/up with nephro recs HD as per nephro, last 11/01 BP management with CCB and Hydralazine prn for BP spikes monitor HH with goal to keep Hgb above 7 stool OB anemia w/up noted , heme on board s/p 1 dose of Venofer on EPO hematuria resolved, Hgb at baseline GI prophayxlis supportive care WILL NEED HOME TRILOGY VENT TO BE ARRANGED ON DISCHARGE case discussed and evaluated by supervising physician Jonathon Pabon MD 11/05/19 1414: Subjective Allergies: Coded Allergies: PENICILLINS (Verified Allergy, Unknown, 10/25/19) tolerated Ceftriaxone Assessment/Plan Assessment/Plan Patient seen and examined with SENIOR COUNSEL. Agree with above A&P as it reflects our joint deliberations. Reema Hanna NP Nov 04, 2019 15:26 Jonathon Pabon MD Nov 05, 2019 14:14
--- NOTE | 2019-11-04 18:25 | Cardiology Progress Note ---
Assessment/Plan Assessment/Plan 1. Bradycardia, resolved, probably vasovagal reaction. Avoid B-blockers. 2. Acute HFpEF with elevated BNP, 2D echocardiography shows normal LV systolic with LVEF of about 55% but e/o increased intracardiac filling pressure. 3. Multiple risk factors for coronary artery disease include diabetes mellitus and hypertension. 4. History of peripheral vascular disease, status post partial foot amputation. 5. Acute on chronic renal failure. 6. Anemia of chronic disease. Subjective Subjective Sinus rhythm at rate of 77. Objective Last 24 Hour Vital Signs Date Time Temp Pulse Resp B/P (MAP) Pulse Ox O2 Delivery O2 Flow Rate FiO2 11/04/19 17:15 77 161/63 11/04/19 16:48 79 11/04/19 16:00 98.2 77 19 161/63 (95) 98 11/04/19 16:00 4.0 11/04/19 14:00 98.2 79 19 168/70 (102) 96 11/04/19 12:00 4.0 11/04/19 12:00 98.2 79 17 168/70 (102) 96 11/04/19 12:00 79 11/04/19 11:30 4.0 11/04/19 11:26 82 18 94 11/04/19 10:30 77 16 96 30 11/04/19 09:00 65 127/58 11/04/19 08:54 98 17 96 30 11/04/19 08:00 Bi-pap 12.0 Bi-pap 12.0 11/04/19 08:00 30 11/04/19 08:00 98.1 65 17 127/58 (81) 97 11/04/19 07:41 65 11/04/19 06:36 71 17 97 30 11/04/19 05:06 72 17 96 30 11/04/19 04:00 97.9 70 18 139/58 (85) 100 11/04/19 04:00 30 11/04/19 03:30 66 11/04/19 03:21 67 16 96 30 11/04/19 01:25 67 16 98 30 11/04/19 00:00 96.4 61 18 138/58 (84) 100 11/03/19 23:27 68 11/03/19 23:16 66 16 97 30 11/03/19 21:15 64 16 99 30 11/03/19 21:00 Bi-pap 12.0 Bi-pap 12.0 11/03/19 20:00 97.2 61 18 145/65 (91) 100 11/03/19 20:00 30 11/03/19 19:25 59 11/03/19 19:10 64 17 100 30 11/03/19 19:08 55 17 100 Bi-Pap 30 11/03/19 18:22 65 147/52 Intake and Output 11/03/19 11/04/19 19:00 07:00 Output Total 225 ml 350 ml Balance -225 ml -350 ml Output Urine Total 225 ml 350 ml # Voids 1 2D Echo: LVEF 55%, Pseudo-normal LV physio grade II LV Diastolic fxn, RVSP 22, [place]. Laboratory Tests Test 11/03/19 20:30 11/04/19 04:00 11/04/19 05:49 11/04/19 10:29 POC Whole Blood Glucose 171 MG/DL (74-106) H 138 MG/DL (74-106) H White Blood Count 8.7 K/UL (4.8-10.8) Red Blood Count 2.82 M/UL (4.70-6.10) L Hemoglobin 8.7 G/DL (14.2-18.0) L Hematocrit 28.2 % (42.0-52.0) L Mean Corpuscular Volume 100 FL (80-99) H Mean Corpuscular Hemoglobin 30.9 PG (27.0-31.0) Mean Corpuscular Hemoglobin Concent 30.9 G/DL (32.0-36.0) L Red Cell Distribution Width 16.3 % (11.6-14.8) H Platelet Count 144 K/UL (150-450) L Mean Platelet Volume 8.2 FL (6.5-10.1) Neutrophils (%) (Auto) 83.0 % (45.0-75.0) H Lymphocytes (%) (Auto) 10.8 % (20.0-45.0) L Monocytes (%) (Auto) 5.0 % (1.0-10.0) Eosinophils (%) (Auto) 0.8 % (0.0-3.0) Basophils (%) (Auto) 0.3 % (0.0-2.0) Sodium Level 131 MMOL/L (136-145) L Potassium Level 3.6 MMOL/L (3.5-5.1) Chloride Level 94 MMOL/L (98-107) L Carbon Dioxide Level 32 MMOL/L (21-32) Anion Gap 5 mmol/L (5-15) Blood Urea Nitrogen 65 mg/dL (7-18) H Creatinine 4.1 MG/DL (0.55-1.30) H Estimat Glomerular Filtration Rate 14.1 mL/min (>60) Glucose Level 130 MG/DL (74-106) H Calcium Level 9.1 MG/DL (8.5-10.1) Phosphorus Level 4.5 MG/DL (2.5-4.9) Magnesium Level 2.3 MG/DL (1.8-2.4) Total Bilirubin 0.3 MG/DL (0.2-1.0) Aspartate Amino Transf (AST/SGOT) 25 U/L (15-37) Alanine Aminotransferase (ALT/SGPT) 21 U/L (12-78) Alkaline Phosphatase 96 U/L (46-116) C-Reactive Protein, Quantitative 2.9 mg/dL (0.00-0.90) H Total Protein 5.5 G/DL (6.4-8.2) L Albumin 2.1 G/DL (3.4-5.0) L Globulin 3.4 g/dL Albumin/Globulin Ratio 0.6 (1.0-2.7) L Arterial Blood pH 7.376 (7.350-7.450) Arterial Blood Partial Pressure CO2 56.6 mmHg (35.0-45.0) *H Arterial Blood Partial Pressure O2 73.6 mmHg (75.0-100.0) L Arterial Blood HCO3 32.4 mmol/L (22.0-26.0) H Arterial Blood Oxygen Saturation 94.1 % (95-100) L Arterial Blood Base Excess 6.1 (-2-2) H Kristian Test Positive Test 11/04/19 12:14 11/04/19 16:36 POC Whole Blood Glucose 108 MG/DL (74-106) H 103 MG/DL (74-106) Objective HEENT: Atraumatic and normocephalic. Anicteric. Pupils are equal, round, and reactive to light and accommodation. Extraocular muscles intact. NECK: JVP less than 5 cm. No carotid bruit. Carotid upstroke is 2+ bilaterally. CARDIOVASCULAR: Normal S1, S2. Regular rate and rhythm. No murmurs, gallops, or rubs. Bradycardic. LUNGS: Bilateral rhonchi. ABDOMEN: Soft, nontender, and nondistended. No hepatosplenomegaly. Positive bowel sounds. EXTREMITIES: Bilateral partial foot amputations. Chris Hanley MD Nov 04, 2019 18:25
[2019-11-04] MEDS: Dyna-Hex 2% Top Sol 2oz TOPIC SCH (20:32)
[2019-11-04] MEDS: Miralax 17gm pkt NG SCH (20:32)
[2019-11-05] VITALS: BP 160/66
[2019-11-05 04:00] VITALS: BP 158/68
[2019-11-05 04:41] LABS: BASOPHILS % (AUTO) 0.5 % (0.0-2.0); EOSINOPHILS % (AUTO) 0.7 % (0.0-3.0); HEMATOCRIT 29.9 % (42.0-52.0); HEMOGLOBIN 9.2 G/DL (14.2-18.0); LYMPHOCYTES % (AUTO) 16.9 % (20.0-45.0); MEAN CORPUSCULAR VOLUME 99 FL (80-99); MONOCYTES % (AUTO) 6.8 % (1.0-10.0); NEUTROPHILS % (AUTO) 75.2 % (45.0-75.0); PLATELET COUNT 171 K/UL (150-450); RED BLOOD COUNT 3.01 M/UL (4.70-6.10); RED CELL DISTRIBUTION WIDTH 15.9 % (11.6-14.8); WHITE BLOOD COUNT 7.2 K/UL (4.8-10.8)
[2019-11-05 05:07] LABS: ANION GAP 6 mmol/L (5-15); BLOOD UREA NITROGEN 39 mg/dL (7-18); CALCIUM 9.5 MG/DL (8.5-10.1); CARBON DIOXIDE 34 MMOL/L (21-32); CHLORIDE 103 MMOL/L (98-107); CREATININE 2.9 MG/DL (0.55-1.30); POTASSIUM 3.8 MMOL/L (3.5-5.1); SODIUM 142 MMOL/L (136-145)
[2019-11-05 05:17] LABS: ALANINE AMINOTRANSFERASE 19 U/L (12-78); ALBUMIN 2.3 G/DL (3.4-5.0); ALKALINE PHOSPHATASE 101 U/L (46-116); ASPARTATE AMINO TRANSFERASE 25 U/L (15-37); BILIRUBIN,DIRECT 0.2 MG/DL (0.0-0.3); BILIRUBIN,TOTAL 0.5 MG/DL (0.2-1.0); PHOSPHORUS 3.3 MG/DL (2.5-4.9)
--- NOTE | 2019-11-05 06:20 | General Progress Note ---
Assessment/Plan Assessment/Plan: Covering Dr. Chang ASSESSMENT AND RECOMMENDATIONS: # Anemia of chronic disease due to underlying chronic medical issues, multifactorial --> Anemia w/u has been reviewed. --> no evidence of hemolysis is noted, peripheral smear has been reviewed --> hgb goal is >7, transfuse as needed --> currently remains stable, occult blood negative --> hgb 8.4->8.6->8.3->8->8.2->9.2 --> some blood loss due to hematuria after inflated reyes pulled 10/27 am --> EPOGEN Started # Acute kidney injury r/o potential reversible component --> reviewed meds, those that are renally cleared removed --> as per renal recs, appreciated --> cr 3.5-->4.2 --> Hd started and dw renal # Hypertension, essential --> sbp goal is <140, consider anti-htn as needed --> currently started on hyralazine 25mg po q6h prn sbp >140 # CHF - hx of CHf --> diuresis with lasix as needed --> cardiology recs appreciatedp rior adm #. Leukocytosis with underlying infectionv stress reaction HISTORY --> per id and better --> for infection, ABX ctx/vanc-->off #. Bilateral lower extremity amputee, metatarsal several years ago #. Hyperkalemia -- kayxelate as needed #. Dvt ppx scds --> apixaban The time the note was entered does not necessarily correspond to the time the patient was seen. GREATLY APPRECIATE CONSULTATION. Subjective Allergies: Coded Allergies: PENICILLINS (Verified Allergy, Unknown, 10/25/19) tolerated Ceftriaxone All Systems: reviewed and negative except above Subjective 10/[address] Chang, to do best to avoid haldol, continue restraints, jag rn, on nc, feeling better 10/25 still with some agitation overnight, meds reviewed, jag rn, haldol given in AM 10/26 is on 2l nc, also is on restraints, no night sweats, no bleeding 10/27 reyes catheter has been removed by patient, and resinserted, bed sheets, with bright red blood on exam 10/28 labs are noted, no bleeding, cr is worse, seen by renal, remains edematous 11/04 no major changes, hd as per renal, recs are noted, labs reviewed, pending neuro eval Objective Last 24 Hour Vital Signs Date Time Temp Pulse Resp B/P (MAP) Pulse Ox O2 Delivery O2 Flow Rate FiO2 11/05/19 04:57 76 20 98 30 11/05/19 04:00 98.3 74 18 158/68 (98) 99 11/05/19 04:00 77 11/05/19 04:00 30 11/05/19 03:28 75 18 98 30 11/05/19 01:30 74 16 98 30 11/05/19 00:00 98.5 77 17 160/66 (97) 98 11/05/19 00:00 75 11/04/19 23:21 78 18 97 30 11/04/19 21:30 74 18 96 30 11/04/19 21:00 Bi-pap 12.0 Bi-pap 12.0 11/04/19 20:04 76 17 97 30 11/04/19 20:00 30 11/04/19 20:00 77 11/04/19 20:00 98.4 76 24 159/61 (93) 96 11/04/19 19:50 94 Nasal Cannula 3.0 32 11/04/19 17:15 77 161/63 11/04/19 16:48 79 11/04/19 16:00 98.2 77 19 161/63 (95) 98 11/04/19 16:00 4.0 11/04/19 14:00 98.2 79 19 168/70 (102) 96 11/04/19 12:00 4.0 11/04/19 12:00 98.2 79 17 168/70 (102) 96 11/04/19 12:00 79 11/04/19 11:30 4.0 11/04/19 11:26 82 18 94 11/04/19 10:30 77 16 96 30 11/04/19 09:00 65 127/58 11/04/19 08:54 98 17 96 30 11/04/19 08:00 Bi-pap 12.0 Bi-pap 12.0 11/04/19 08:00 30 11/04/19 08:00 98.1 65 17 127/58 (81) 97 11/04/19 07:41 65 11/04/19 06:36 71 17 97 30 Intake and Output 11/04/19 11/05/19 19:00 07:00 Output Total 3200 ml 300 ml Balance -3200 ml -300 ml Output Urine Total 200 ml 300 ml Hemodialysis UF 3000 ml # Voids 1 Laboratory Tests 11/04/19 10:29: Arterial Blood pH 7.376, Arterial Blood Partial Pressure CO2 56.6*H, Arterial Blood Partial Pressure O2 73.6L, Arterial Blood HCO3 32.4H, Arterial Blood Oxygen Saturation 94.1L, Arterial Blood Base Excess 6.1H, Kristian Test Positive 11/04/19 12:14: POC Whole Blood Glucose 108H 11/04/19 16:36: POC Whole Blood Glucose 103 11/04/19 20:16: POC Whole Blood Glucose 123H 11/05/19 03:50: White Blood Count 7.2, Red Blood Count 3.01L, Hemoglobin 9.2L, Hematocrit 29.9L , Mean Corpuscular Volume 99, Mean Corpuscular Hemoglobin 30.5, Mean Corpuscular Hemoglobin Concent 30.7L, Red Cell Distribution Width 15.9H, Platelet Count 171, Mean Platelet Volume 9.0, Neutrophils (%) (Auto) 75.2H, Lymphocytes (%) (Auto) 16.9L, Monocytes (%) (Auto) 6.8, Eosinophils (%) (Auto) 0.7, Basophils (%) (Auto) 0.5, Sodium Level 142#, Potassium Level 3.8, Chloride Level 103, Carbon Dioxide Level 34H, Anion Gap 6, Blood Urea Nitrogen 39H, Creatinine 2.9H, Estimat Glomerular Filtration Rate 21.0, Glucose Level 123H, Calcium Level 9.5, Phosphorus Level 3.3, Magnesium Level 2.4, Total Bilirubin 0.5, Direct Bilirubin 0.2, Aspartate Amino Transf (AST/SGOT) 25, Alanine Aminotransferase (ALT/SGPT) 19, Alkaline Phosphatase 101, Total Protein 5.9L, Albumin 2.3L 11/05/19 05:16: POC Whole Blood Glucose 115H Height (Feet): 5 Height (Inches): 8.00 Weight (Pounds): 199 Objective GENERAL: Not in acute distress. PULMONARY: Decreased breath sounds. +ngt CARDIOVASCULAR: Regular rate. No S3 or S4. ABDOMEN: Soft, nontender, nondistended. EXTREMITIES: 1+ edema. No cyanosis, swelling, or edema. 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 Melvin Rizzo MD Nov 05, 2019 06:20
[2019-11-05] MEDS: NovoLOG Insulin Flexpen SUBQ SCH ×4 (06:30→20:28)
--- NOTE | 2019-11-05 06:34 | General Progress Note ---
Assessment/Plan Problem List: (1) Hypertension ICD Codes: I10 - Essential (primary) hypertension SNOMED: 50583783 (2) Diabetes mellitus ICD Codes: E11.9 - Type 2 diabetes mellitus without complications SNOMED: 72477709 (3) Anemia ICD Codes: D64.9 - Anemia, unspecified SNOMED: 434195453 (4) Cholelithiasis ICD Codes: K80.20 - Calculus of gallbladder without cholecystitis without obstruction SNOMED: 975579860 (5) CHF (congestive heart failure) ICD Codes: I50.9 - Heart failure, unspecified SNOMED: 08071595 Assessment/Plan: patient on Xerallto stool ob positive but no overt GIB patient on BIPAP and not stable for GI procedures at this time stable H&H fu cbc repeat stool ob ppi bid GI procedures when patient is more stable bowel regimen start low dose NGTF HD per nephrology management of hyponatremia per nephrology Subjective ROS Limited/Unobtainable: No Allergies: Coded Allergies: PENICILLINS (Verified Allergy, Unknown, 10/25/19) tolerated Ceftriaxone Objective Last 24 Hour Vital Signs Date Time Temp Pulse Resp B/P (MAP) Pulse Ox O2 Delivery O2 Flow Rate FiO2 11/05/19 04:57 76 20 98 30 11/05/19 04:00 98.3 74 18 158/68 (98) 99 11/05/19 04:00 77 11/05/19 04:00 30 11/05/19 03:28 75 18 98 30 11/05/19 01:30 74 16 98 30 11/05/19 00:00 98.5 77 17 160/66 (97) 98 11/05/19 00:00 75 11/04/19 23:21 78 18 97 30 11/04/19 21:30 74 18 96 30 11/04/19 21:00 Bi-pap 12.0 Bi-pap 12.0 11/04/19 20:04 76 17 97 30 11/04/19 20:00 30 11/04/19 20:00 77 11/04/19 20:00 98.4 76 24 159/61 (93) 96 11/04/19 19:50 94 Nasal Cannula 3.0 32 11/04/19 17:15 77 161/63 11/04/19 16:48 79 11/04/19 16:00 98.2 77 19 161/63 (95) 98 11/04/19 16:00 4.0 11/04/19 14:00 98.2 79 19 168/70 (102) 96 11/04/19 12:00 4.0 11/04/19 12:00 98.2 79 17 168/70 (102) 96 11/04/19 12:00 79 11/04/19 11:30 4.0 11/04/19 11:26 82 18 94 11/04/19 10:30 77 16 96 30 11/04/19 09:00 65 127/58 11/04/19 08:54 98 17 96 30 11/04/19 08:00 Bi-pap 12.0 Bi-pap 12.0 11/04/19 08:00 30 11/04/19 08:00 98.1 65 17 127/58 (81) 97 11/04/19 07:41 65 11/04/19 06:36 71 17 97 30 Intake and Output 11/04/19 11/05/19 19:00 07:00 Output Total 3200 ml 300 ml Balance -3200 ml -300 ml Output Urine Total 200 ml 300 ml Hemodialysis UF 3000 ml # Voids 1 Laboratory Tests 11/04/19 10:29: Arterial Blood pH 7.376, Arterial Blood Partial Pressure CO2 56.6*H, Arterial Blood Partial Pressure O2 73.6L, Arterial Blood HCO3 32.4H, Arterial Blood Oxygen Saturation 94.1L, Arterial Blood Base Excess 6.1H, Kristian Test Positive 11/04/19 12:14: POC Whole Blood Glucose 108H 11/04/19 16:36: POC Whole Blood Glucose 103 11/04/19 20:16: POC Whole Blood Glucose 123H 11/05/19 03:50: White Blood Count 7.2, Red Blood Count 3.01L, Hemoglobin 9.2L, Hematocrit 29.9L , Mean Corpuscular Volume 99, Mean Corpuscular Hemoglobin 30.5, Mean Corpuscular Hemoglobin Concent 30.7L, Red Cell Distribution Width 15.9H, Platelet Count 171, Mean Platelet Volume 9.0, Neutrophils (%) (Auto) 75.2H, Lymphocytes (%) (Auto) 16.9L, Monocytes (%) (Auto) 6.8, Eosinophils (%) (Auto) 0.7, Basophils (%) (Auto) 0.5, Sodium Level 142#, Potassium Level 3.8, Chloride Level 103, Carbon Dioxide Level 34H, Anion Gap 6, Blood Urea Nitrogen 39H, Creatinine 2.9H, Estimat Glomerular Filtration Rate 21.0, Glucose Level 123H, Calcium Level 9.5, Phosphorus Level 3.3, Magnesium Level 2.4, Total Bilirubin 0.5, Direct Bilirubin 0.2, Aspartate Amino Transf (AST/SGOT) 25, Alanine Aminotransferase (ALT/SGPT) 19, Alkaline Phosphatase 101, Total Protein 5.9L, Albumin 2.3L 11/05/19 05:16: POC Whole Blood Glucose 115H Height (Feet): 5 Height (Inches): 8.00 Weight (Pounds): 199 General Appearance: lethargic EENT: normal ENT inspection Neck: supple Cardiovascular: normal rate Respiratory/Chest: decreased breath sounds Abdomen: hypoactive bowel sounds Extremities: non-tender Lawrence Humphreys MD Nov 05, 2019 06:34
--- NOTE | 2019-11-05 07:09 | Infectious Diseases Prog Note ---
Assessment/Plan 79yo M from SNF who p/w hypoglycemia and resp failure: Acute hypoxic respiratory failure, on BiPAP > 2L NC> RA > 2L NC Rapid COVID neg x2 (10/21, 10/24) Pneumonia on CXR Volume overload 10/30 CXR: Slightly improved 10/25 CXR: Bilateral alveolar densities are unchanged 10/24 Sp cx normal resp demario (prelim) 10/23 CXR: 1. Small layering right pleural effusion, not significantly changed. The previously noted small left pleural effusion is not as evident.Prominent lung markings and haziness, right greater left, which may be related to pulmonary vascular congestion versus pneumonitis. This is not significantly changed.. Subsegmental atelectasis versus infiltrate in the medial left lung base, also not significantly changed. 10/21 CXR: 1. Small bilateral pleural effusions. Bibasilar atelectasis versus pneumonia. 2. Prominent lung markings and hazy opacities in right greater than left lungs may represent artifact versus pulmonary vasculature congestion and edema versus infectious/inflammatory process. 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 10/31 No clear clinical correlate to this imaging finding, s/p 7 days of CTX which is good abx for mastoiditis Hypercapnia, ongoing; on BiPAP Afebrile No leukocytosis Anemia to 6.8, improved UA neg, UCx neg R/o bacteremia 10/21 BCx NTD ALEXIS on CKD, worsening --> now on HD HBsAg neg Plan: Cont to monitor off abx, s/p 7d of abx for pna, but this also covered for possible mastoiditis ENT to evaluate ears/TMs for signs of underlying mastoiditis, as seen on CT head ; would appreciate the evaluation as pt unable to tell us if he has ear pain/DE LEON , etc; if unable to obtain in house, OK for pt to have outpt ENT f/u for evaluation given that pt has remained AF wo s/sx of ear infection here, and there is no pain on ear exam here (though unable to fully evaluate the inner ears) 10/31 SP CTX #7 10/26 SP vancomycin IV #5 Trend resp status Monitor CBC, CMP D/w RN Thank you for this consult. [facility] will continue to follow. Subjective Allergies: Coded Allergies: PENICILLINS (Verified Allergy, Unknown, 10/25/19) tolerated Ceftriaxone AF WBC 7 On 3L Slightly more awake Objective Last 24 Hour Vital Signs Date Time Temp Pulse Resp B/P (MAP) Pulse Ox O2 Delivery O2 Flow Rate FiO2 11/05/19 04:57 76 20 98 30 11/05/19 04:00 98.3 74 18 158/68 (98) 99 11/05/19 04:00 77 11/05/19 04:00 30 11/05/19 03:28 75 18 98 30 11/05/19 01:30 74 16 98 30 11/05/19 00:00 98.5 77 17 160/66 (97) 98 11/05/19 00:00 75 11/04/19 23:21 78 18 97 30 11/04/19 21:30 74 18 96 30 11/04/19 21:00 Bi-pap 12.0 Bi-pap 12.0 11/04/19 20:04 76 17 97 30 11/04/19 20:00 30 11/04/19 20:00 77 11/04/19 20:00 98.4 76 24 159/61 (93) 96 11/04/19 19:50 94 Nasal Cannula 3.0 32 11/04/19 17:15 77 161/63 11/04/19 16:48 79 11/04/19 16:00 98.2 77 19 161/63 (95) 98 11/04/19 16:00 4.0 11/04/19 14:00 98.2 79 19 168/70 (102) 96 11/04/19 12:00 4.0 11/04/19 12:00 98.2 79 17 168/70 (102) 96 11/04/19 12:00 79 11/04/19 11:30 4.0 11/04/19 11:26 82 18 94 11/04/19 10:30 77 16 96 30 11/04/19 09:00 65 127/58 11/04/19 08:54 98 17 96 30 11/04/19 08:00 Bi-pap 12.0 Bi-pap 12.0 11/04/19 08:00 30 11/04/19 08:00 98.1 65 17 127/58 (81) 97 11/04/19 07:41 65 Height (Feet): 5 Height (Inches): 8.00 Weight (Pounds): 199 Gen: Older man, NAD in bed CV: RRR Pulm: CTAB anteriorly on NC Abd: Soft, NTND Neuro: Eyes open slightly to voice Laboratory Tests Test 11/04/19 10:29 11/04/19 12:14 11/04/19 16:36 11/04/19 20:16 Arterial Blood pH 7.376 (7.350-7.450) Arterial Blood Partial Pressure CO2 56.6 mmHg (35.0-45.0) *H Arterial Blood Partial Pressure O2 73.6 mmHg (75.0-100.0) L Arterial Blood HCO3 32.4 mmol/L (22.0-26.0) H Arterial Blood Oxygen Saturation 94.1 % (95-100) L Arterial Blood Base Excess 6.1 (-2-2) H Kristina Test Positive POC Whole Blood Glucose 108 MG/DL (74-106) H 103 MG/DL (74-106) 123 MG/DL (74-106) H Test 11/05/19 03:50 11/05/19 05:16 White Blood Count 7.2 K/UL (4.8-10.8) Red Blood Count 3.01 M/UL (4.70-6.10) L Hemoglobin 9.2 G/DL (14.2-18.0) L Hematocrit 29.9 % (42.0-52.0) L Mean Corpuscular Volume 99 FL (80-99) Mean Corpuscular Hemoglobin 30.5 PG (27.0-31.0) Mean Corpuscular Hemoglobin Concent 30.7 G/DL (32.0-36.0) L Red Cell Distribution Width 15.9 % (11.6-14.8) H Platelet Count 171 K/UL (150-450) Mean Platelet Volume 9.0 FL (6.5-10.1) Neutrophils (%) (Auto) 75.2 % (45.0-75.0) H Lymphocytes (%) (Auto) 16.9 % (20.0-45.0) L Monocytes (%) (Auto) 6.8 % (1.0-10.0) Eosinophils (%) (Auto) 0.7 % (0.0-3.0) Basophils (%) (Auto) 0.5 % (0.0-2.0) Sodium Level 142 MMOL/L (136-145) # Potassium Level 3.8 MMOL/L (3.5-5.1) Chloride Level 103 MMOL/L (98-107) Carbon Dioxide Level 34 MMOL/L (21-32) H Anion Gap 6 mmol/L (5-15) Blood Urea Nitrogen 39 mg/dL (7-18) H Creatinine 2.9 MG/DL (0.55-1.30) H Estimat Glomerular Filtration Rate 21.0 mL/min (>60) Glucose Level 123 MG/DL (74-106) H Calcium Level 9.5 MG/DL (8.5-10.1) Phosphorus Level 3.3 MG/DL (2.5-4.9) Magnesium Level 2.4 MG/DL (1.8-2.4) Total Bilirubin 0.5 MG/DL (0.2-1.0) Direct Bilirubin 0.2 MG/DL (0.0-0.3) Aspartate Amino Transf (AST/SGOT) 25 U/L (15-37) Alanine Aminotransferase (ALT/SGPT) 19 U/L (12-78) Alkaline Phosphatase 101 U/L (46-116) Total Protein 5.9 G/DL (6.4-8.2) L Albumin 2.3 G/DL (3.4-5.0) L POC Whole Blood Glucose 115 MG/DL (74-106) H Current Medications Medications (Trade) Dose Ordered Sig/Cammy Route PRN Reason Start Time Stop Time Status Last Admin Dose Admin Acetaminophen (Tylenol) 650 mg Q6H PRN NG Pain 3-5 11/03/19 11:15 12/02/19 11:14 Amlodipine Besylate (Norvasc) 5 mg BID NG 11/03/19 18:00 11/25/19 08:59 11/04/19 17:15 Apixaban (Eliquis) 2.5 mg BID NG 11/03/19 18:00 01/31/20 17:59 11/04/19 17:15 Atorvastatin Calcium (Lipitor) 10 mg BEDTIME NG 11/03/19 21:00 01/21/20 20:59 11/04/19 20:32 Chlorhexidine Gluconate (Yi-Hex 2%) 1 applic DAILY@1999 TOPIC 11/03/19 20:00 01/31/20 19:59 11/04/19 20:32 Dextrose (Dextrose 50%) 25 ml Q30M PRN IV Hypoglycemia 11/03/19 11:15 01/20/20 21:44 Dextrose (Dextrose 50%) 50 ml Q30M PRN IV Hypoglycemia 11/03/19 11:15 01/20/20 21:44 Docusate Sodium (Colace) 100 mg THREE TIMES A DAY NG 11/03/19 13:00 12/02/19 17:59 11/04/19 17:14 Epoetin William (Epoetin William(ESRD on dialysis)) 10,000 unit SUBQ 11/03/19 21:00 02/01/20 20:59 11/03/19 21:02 Haloperidol (Haldol) 5 mg Q12H PRN NG Agitation 11/03/19 11:15 12/17/19 11:14 Haloperidol Lactate (Haldol) 5 mg Q6H PRN IM Agitation 11/03/19 11:15 12/10/19 11:14 Hydralazine HCl (Apresoline) 10 mg Q4H PRN IV For High Blood Pressure 11/03/19 11:15 01/24/20 11:14 Insulin Aspart (NovoLOG) BEFORE MEALS AND HS SUBQ 11/03/19 11:30 01/31/20 06:29 11/03/19 21:11 Lactulose (Cephulac) 10 gm BID NG 11/03/19 18:00 12/01/19 08:59 11/04/19 17:14 Levothyroxine Sodium (Synthroid) 75 mcg DAILY@0630 ORAL 11/04/19 06:30 12/04/19 06:29 11/05/19 06:34 Pantoprazole (Protonix) 40 mg EVERY 12 HOURS IVP 11/03/19 21:00 11/22/19 08:59 11/04/19 20:32 Polyethylene Glycol (Miralax) 17 gm BEDTIME NG 11/03/19 21:00 12/01/19 20:59 11/04/19 20:32 Sennosides (Senokot) 8.6 mg HSPRN PRN NG Constipation 11/03/19 16:15 12/02/19 16:14 Sevelamer Carbonate (Renvela) 1,600 mg THREE TIMES A DAY NG 11/03/19 13:00 01/21/20 17:59 11/04/19 17:14 Mckenna Diallo M.D. Nov 05, 2019 07:09
[2019-11-05 08:00] VITALS: BP 163/67
[2019-11-05] MEDS: Lactulose 10gm/15ml UDC NG SCH ×2 (08:12→17:32)
[2019-11-05] MEDS: Docusate 100mg/10ml Liq NG SCH ×3 (08:12→17:32)
[2019-11-05] MEDS: Pantoprazole Inj IVP SCH ×2 (08:12→20:27)
[2019-11-05] MEDS: Eliquis 2.5mg tablet NG SCH (08:13)
[2019-11-05] MEDS: Renvela 800mg Pkt NG SCH ×3 (08:13→17:32)
--- NOTE | 2019-11-05 10:31 | Nephrology Progress Note ---
Assessment/Plan Problem List: (1) Renal failure (ARF), acute on chronic (2) Metabolic acidosis (3) Electrolyte imbalance Assessment: Hyponatremia and hyperkalemia (4) Anemia (5) CHF (congestive heart failure) Assessment 79-year-old male is admitted for hypoglycemia Patient has renal failure which appears to be acute on chronic Hyperkalemia Hyponatremia CHF, pleural effusion, pneumonia Anemia Metabolic acidosis Hypothyroidism Plan November 04: Dialyzed yesterday. Due for insertion of tunneled catheter today. May need to hold Eliquis and reschedule catheter insertion on Friday. Will monitor renal parameters in the meantime. November 03: Dialyzed this morning. Stable from renal standpoint of view. Due for insertion of tunneled catheter tomorrow. November 02: Dialyzed yesterday. Will DC IV fluid. Dialysis tomorrow. Potassium supplement given. Per orders. November 01: Patient currently being dialyzed. Tolerating well. Labs will be reviewed. Continue per consultants. October 31: Patient was dialyzed yesterday. Clinically doing better. We will continue to monitor renal parameters. Dialysis as needed. October 30: Serum creatinine rising. Patient due to have a temporary dialysis catheter and due for dialysis today. Will continue to follow-up renal parameters. Patient remains full code. October 29: Serum creatinine rising. Serum creatinine 4.5 today. Calculated creatinine clearance is 12. Kidney ultrasound ordered yesterday results were reviewed. Patient appears to have acute renal failure due to underlying sepsis and nephrotoxic medications. Patient requires dialysis treatment. Ordered to obtain consent from the responsible republican. Will communicate with PMD and or he is coverage. October 28: Serum creatinine higher to 4.2 today. Blood pressure appears more stable. In view of worsening renal failure, will order stat kidney ultrasound and urine studies. Continue to monitor renal parameters. Patient is full code. Worsening renal parameters may lead to hemodialysis treatment. October 27: Patient pulled out the Lyles catheter. Serum creatinine went up to 3.8. Blood pressure somewhat low. Heart rate in 50s. Will discontinue Coreg. We will continue to monitor renal parameters. October 26: Serum creatinine lower again today. Will abort the dialysis plan. Continue per consultants. Continue to monitor renal parameters. Medication list reviewed. October 25: Clinically improving. Serum creatinine lower. Urine output increased. No dialysis planned at this time. Continue per consultants. October 24: Patient's respiratory status somewhat improved. Serum creatinine down to 3.9. Urinary output somewhat increased. Will hold placement of dialysis catheter at this time. Blood pressure medication adjusted. Continue to monitor renal parameters. Per orders. October 23: Patient remains on BiPAP. More Kayexalate ordered. Will consider hemodialysis to correct fluid overload and hyperkalemia and acidosis. Will discuss with PMD. Meanwhile IV Synthroid started. Discussed with RN Timothy Patient already transfused 1 unit for severe anemia previously Will initiate Epogen 10,000 units subcutaneously 1 dose of IV iron Venofer 200 g IV Kayexalate for hyperkalemia as needed 2D echocardiogram ordered, ejection fraction is reported normal Kidney ultrasound ordered: Kidneys: Right kidney measures 9.1 cm in length. No hydronephrosis or stone. Left kidney not visualized due to patient's body habitus. Avoid nephrotoxic's Monitor renal parameters Will hold insulin and hypoglycemic agents until hypoglycemia is reasonably resolved Subjective ROS Limited/Unobtainable: Yes Objective Objective Last 24 Hour Vital Signs Date Time Temp Pulse Resp B/P (MAP) Pulse Ox O2 Delivery O2 Flow Rate FiO2 11/05/19 09:00 Bi-pap 12.0 Bi-pap 12.0 11/05/19 08:12 81 163/67 11/05/19 08:07 99 Nasal Cannula 3.0 32 11/05/19 08:00 97.9 81 18 163/67 (99) 98 11/05/19 08:00 4.0 11/05/19 08:00 82 11/05/19 04:57 76 20 98 30 11/05/19 04:00 98.3 74 18 158/68 (98) 99 11/05/19 04:00 77 11/05/19 04:00 30 11/05/19 03:28 75 18 98 30 11/05/19 01:30 74 16 98 30 11/05/19 00:00 98.5 77 17 160/66 (97) 98 11/05/19 00:00 75 11/04/19 23:21 78 18 97 30 11/04/19 21:30 74 18 96 30 11/04/19 21:00 Bi-pap 12.0 Bi-pap 12.0 11/04/19 20:04 76 17 97 30 11/04/19 20:00 30 11/04/19 20:00 77 11/04/19 20:00 98.4 76 24 159/61 (93) 96 11/04/19 19:50 94 Nasal Cannula 3.0 32 11/04/19 17:15 77 161/63 11/04/19 16:48 79 11/04/19 16:00 98.2 77 19 161/63 (95) 98 11/04/19 16:00 4.0 11/04/19 14:00 98.2 79 19 168/70 (102) 96 11/04/19 12:00 4.0 11/04/19 12:00 98.2 79 17 168/70 (102) 96 11/04/19 12:00 79 11/04/19 11:30 4.0 11/04/19 11:26 82 18 94 11/04/19 10:30 77 16 96 30 Intake and Output 11/04/19 11/05/19 19:00 07:00 Output Total 3200 ml 300 ml Balance -3200 ml -300 ml Output Urine Total 200 ml 300 ml Hemodialysis UF 3000 ml # Voids 1 Current Medications Medications (Trade) Dose Ordered Sig/Cammy Route PRN Reason Start Time Stop Time Status Last Admin Dose Admin Acetaminophen (Tylenol) 650 mg Q6H PRN NG Pain 3-5 11/03/19 11:15 12/02/19 11:14 Amlodipine Besylate (Norvasc) 5 mg BID NG 11/03/19 18:00 11/25/19 08:59 11/05/19 08:12 Apixaban (Eliquis) 2.5 mg BID NG 11/03/19 18:00 01/31/20 17:59 11/04/19 17:15 Atorvastatin Calcium (Lipitor) 10 mg BEDTIME NG 11/03/19 21:00 01/21/20 20:59 11/04/19 20:32 Chlorhexidine Gluconate (Yi-Hex 2%) 1 applic DAILY@1999 TOPIC 11/03/19 20:00 01/31/20 19:59 11/04/19 20:32 Dextrose (Dextrose 50%) 25 ml Q30M PRN IV Hypoglycemia 11/03/19 11:15 01/20/20 21:44 Dextrose (Dextrose 50%) 50 ml Q30M PRN IV Hypoglycemia 11/03/19 11:15 01/20/20 21:44 Docusate Sodium (Colace) 100 mg THREE TIMES A DAY NG 11/03/19 13:00 12/02/19 17:59 11/05/19 08:12 Epoetin William (Epoetin William(ESRD on dialysis)) 10,000 unit FRI- SUBQ 11/03/19 21:00 02/01/20 20:59 11/03/19 21:02 Haloperidol (Haldol) 5 mg Q12H PRN NG Agitation 11/03/19 11:15 12/17/19 11:14 Haloperidol Lactate (Haldol) 5 mg Q6H PRN IM Agitation 11/03/19 11:15 12/10/19 11:14 Hydralazine HCl (Apresoline) 10 mg Q4H PRN IV For High Blood Pressure 11/03/19 11:15 01/24/20 11:14 Insulin Aspart (NovoLOG) BEFORE MEALS AND HS SUBQ 11/03/19 11:30 01/31/20 06:29 11/03/19 21:11 Lactulose (Cephulac) 10 gm BID NG 11/03/19 18:00 12/01/19 08:59 11/05/19 08:12 Levothyroxine Sodium (Synthroid) 75 mcg DAILY@0630 ORAL 11/04/19 06:30 12/04/19 06:29 11/05/19 06:34 Pantoprazole (Protonix) 40 mg EVERY 12 HOURS IVP 11/03/19 21:00 11/22/19 08:59 11/05/19 08:12 Polyethylene Glycol (Miralax) 17 gm BEDTIME NG 11/03/19 21:00 12/01/19 20:59 11/04/19 20:32 Sennosides (Senokot) 8.6 mg HSPRN PRN NG Constipation 11/03/19 16:15 12/02/19 16:14 Sevelamer Carbonate (Renvela) 1,600 mg THREE TIMES A DAY NG 11/03/19 13:00 01/21/20 17:59 11/05/19 08:13 Laboratory Tests 11/04/19 12:14: POC Whole Blood Glucose 108H 11/04/19 16:36: POC Whole Blood Glucose 103 11/04/19 20:16: POC Whole Blood Glucose 123H 11/05/19 03:50: White Blood Count 7.2, Red Blood Count 3.01L, Hemoglobin 9.2L, Hematocrit 29.9L , Mean Corpuscular Volume 99, Mean Corpuscular Hemoglobin 30.5, Mean Corpuscular Hemoglobin Concent 30.7L, Red Cell Distribution Width 15.9H, Platelet Count 171, Mean Platelet Volume 9.0, Neutrophils (%) (Auto) 75.2H, Lymphocytes (%) (Auto) 16.9L, Monocytes (%) (Auto) 6.8, Eosinophils (%) (Auto) 0.7, Basophils (%) (Auto) 0.5, Sodium Level 142#, Potassium Level 3.8, Chloride Level 103, Carbon Dioxide Level 34H, Anion Gap 6, Blood Urea Nitrogen 39H, Creatinine 2.9H, Estimat Glomerular Filtration Rate 21.0, Glucose Level 123H, Calcium Level 9.5, Phosphorus Level 3.3, Magnesium Level 2.4, Total Bilirubin 0.5, Direct Bilirubin 0.2, Aspartate Amino Transf (AST/SGOT) 25, Alanine Aminotransferase (ALT/SGPT) 19, Alkaline Phosphatase 101, Total Protein 5.9L, Albumin 2.3L 11/05/19 05:16: POC Whole Blood Glucose 115H Height (Feet): 5 Height (Inches): 8.00 Weight (Pounds): 199 General Appearance: no apparent distress, lethargic Cardiovascular: normal rate Respiratory/Chest: decreased breath sounds Abdomen: distended Objective No change Naveed Vanegas MD Nov 05, 2019 10:31
--- NOTE | 2019-11-05 10:55 | Pulmonology Progress Note ---
Reema Hanna CIRCULATION MANAGER 11/05/19 1055: Subjective ROS Limited/Unobtainable: Yes Allergies: Coded Allergies: PENICILLINS (Verified Allergy, Unknown, 10/25/19) tolerated Ceftriaxone All Systems: reviewed and negative except above Subjective more awake and responsive off Bipap ( was used at HS) on O 2 via NC no resp distress CXR 11/02 not much change TF via NGT BSSE pending for this am still pending neuro eval remains afebrile, no leukocytosis tunneled HD catheter placement for this am, but had Eliquis yesterday, per IR decision Objective Last 24 Hour Vital Signs Date Time Temp Pulse Resp B/P (MAP) Pulse Ox O2 Delivery O2 Flow Rate FiO2 11/05/19 09:00 Bi-pap 12.0 Bi-pap 12.0 11/05/19 08:12 81 163/67 11/05/19 08:07 99 Nasal Cannula 3.0 32 11/05/19 08:00 97.9 81 18 163/67 (99) 98 11/05/19 08:00 4.0 11/05/19 08:00 82 11/05/19 04:57 76 20 98 30 11/05/19 04:00 98.3 74 18 158/68 (98) 99 11/05/19 04:00 77 11/05/19 04:00 30 11/05/19 03:28 75 18 98 30 11/05/19 01:30 74 16 98 30 11/05/19 00:00 98.5 77 17 160/66 (97) 98 11/05/19 00:00 75 11/04/19 23:21 78 18 97 30 11/04/19 21:30 74 18 96 30 11/04/19 21:00 Bi-pap 12.0 Bi-pap 12.0 11/04/19 20:04 76 17 97 30 11/04/19 20:00 30 11/04/19 20:00 77 11/04/19 20:00 98.4 76 24 159/61 (93) 96 11/04/19 19:50 94 Nasal Cannula 3.0 32 11/04/19 17:15 77 161/63 11/04/19 16:48 79 11/04/19 16:00 98.2 77 19 161/63 (95) 98 8/13/20 16:00 4.0 11/04/19 14:00 98.2 79 19 168/70 (102) 96 11/04/19 12:00 4.0 11/04/19 12:00 98.2 79 17 168/70 (102) 96 11/04/19 12:00 79 11/04/19 11:30 4.0 11/04/19 11:26 82 18 94 Intake and Output 11/04/19 11/05/19 19:00 07:00 Output Total 3200 ml 300 ml Balance -3200 ml -300 ml Output Urine Total 200 ml 300 ml Hemodialysis UF 3000 ml # Voids 1 Objective General Appearance: no apparent distress, Swedish speaking confused male, Lines, tubes and drains: R femoral HEENT: normocephalic, atraumatic, anicteric, mucous membranes moist, O2 3 L via NC, NGT Respiratory/Chest: few scattered crackles, no exp wheezing, Cardiovascular/Chest: normal rate, regular rhythm Abdomen: normal bowel sounds, non tender, soft Extremities: partially amputated BL foot/metatarsal Skin Exam: warm/dry Neurologic: abnormal gait, not much responsive, Musculoskeletal: atrophy BLE Laboratory Tests 11/04/19 12:14: POC Whole Blood Glucose 108H 11/04/19 16:36: POC Whole Blood Glucose 103 11/04/19 20:16: POC Whole Blood Glucose 123H 11/05/19 03:50: White Blood Count 7.2, Red Blood Count 3.01L, Hemoglobin 9.2L, Hematocrit 29.9L , Mean Corpuscular Volume 99, Mean Corpuscular Hemoglobin 30.5, Mean Corpuscular Hemoglobin Concent 30.7L, Red Cell Distribution Width 15.9H, Platelet Count 171, Mean Platelet Volume 9.0, Neutrophils (%) (Auto) 75.2H, Lymphocytes (%) (Auto) 16.9L, Monocytes (%) (Auto) 6.8, Eosinophils (%) (Auto) 0.7, Basophils (%) (Auto) 0.5, Sodium Level 142#, Potassium Level 3.8, Chloride Level 103, Carbon Dioxide Level 34H, Anion Gap 6, Blood Urea Nitrogen 39H, Creatinine 2.9H, Estimat Glomerular Filtration Rate 21.0, Glucose Level 123H, Calcium Level 9.5, Phosphorus Level 3.3, Magnesium Level 2.4, Total Bilirubin 0.5, Direct Bilirubin 0.2, Aspartate Amino Transf (AST/SGOT) 25, Alanine Aminotransferase (ALT/SGPT) 19, Alkaline Phosphatase 101, Total Protein 5.9L, Albumin 2.3L 11/05/19 05:16: POC Whole Blood Glucose 115H Current Medications Medications (Trade) Dose Ordered Sig/Cammy Route PRN Reason Start Time Stop Time Status Last Admin Dose Admin Acetaminophen (Tylenol) 650 mg Q6H PRN NG Pain 3-5 11/03/19 11:15 12/02/19 11:14 Amlodipine Besylate (Norvasc) 5 mg BID NG 11/03/19 18:00 11/25/19 08:59 11/05/19 08:12 Atorvastatin Calcium (Lipitor) 10 mg BEDTIME NG 11/03/19 21:00 01/21/20 20:59 11/04/19 20:32 Chlorhexidine Gluconate (Yi-Hex 2%) 1 applic DAILY@1999 TOPIC 11/03/19 20:00 01/31/20 19:59 11/04/19 20:32 Dextrose (Dextrose 50%) 25 ml Q30M PRN IV Hypoglycemia 11/03/19 11:15 01/20/20 21:44 Dextrose (Dextrose 50%) 50 ml Q30M PRN IV Hypoglycemia 11/03/19 11:15 01/20/20 21:44 Docusate Sodium (Colace) 100 mg THREE TIMES A DAY NG 11/03/19 13:00 12/02/19 17:59 11/05/19 08:12 Epoetin William (Epoetin William(ESRD on dialysis)) 10,000 unit FRI-FRI-FRI SUBQ 11/03/19 21:00 02/01/20 20:59 11/03/19 21:02 Haloperidol (Haldol) 5 mg Q12H PRN NG Agitation 11/03/19 11:15 12/17/19 11:14 Haloperidol Lactate (Haldol) 5 mg Q6H PRN IM Agitation 11/03/19 11:15 12/10/19 11:14 Hydralazine HCl (Apresoline) 10 mg Q4H PRN IV For High Blood Pressure 11/03/19 11:15 01/24/20 11:14 Insulin Aspart (NovoLOG) BEFORE MEALS AND HS SUBQ 11/03/19 11:30 01/31/20 06:29 11/03/19 21:11 Lactulose (Cephulac) 10 gm BID NG 11/03/19 18:00 12/01/19 08:59 11/05/19 08:12 Levothyroxine Sodium (Synthroid) 75 mcg DAILY@0630 ORAL 11/04/19 06:30 12/04/19 06:29 11/05/19 06:34 Pantoprazole (Protonix) 40 mg EVERY 12 HOURS IVP 11/03/19 21:00 11/22/19 08:59 11/05/19 08:12 Polyethylene Glycol (Miralax) 17 gm BEDTIME NG 11/03/19 21:00 12/01/19 20:59 11/04/19 20:32 Sennosides (Senokot) 8.6 mg HSPRN PRN NG Constipation 11/03/19 16:15 12/02/19 16:14 Sevelamer Carbonate (Renvela) 1,600 mg THREE TIMES A DAY NG 11/03/19 13:00 01/21/20 17:59 11/05/19 08:13 Assessment/Plan Assessment/Plan ASSESSMENT Acute hypoxemic hypercapnic respiratory failure requiring BiPAP Acute metabolic encephalopathy likely due to hypoglycemia Diabetes mellitus with initial hypoglycemia Probably pneumonia Aspiration risk Acute kidney injury on chronic kidney disease, requiring start of HD 10/30 Severe anemia requiring blood transfusion Metabolic acidosis Electrolyte imbalance :hyponatremia, hyperkalemia HTN with HTN urgency Dysphagia Hematuria 2 to pt pulled off his Lyles catheter Possibly DAYANA PLAN OF CARE TOYIN BiPAOP at HS and prn currently on o2 via NC titrate O2, pulm toilet patient likely had DAYANA. recommend sleep study as OP CXR 11/02 -> Stable slightly increased bilateral pleural effusions. Otherwise little change analyst 3 days 10/21 and 10/24 rapid COVID NGT, abx as per ID recs -> Ceftriaxone , completed 10/30 ; s/p Vanco , completed Rx for PNA 7 days, remains afebrile no leucocytosis BCX 10/21 NGTD UCX NGT SCX if able Venous Duplex BLE 10/25 -> NGT CT head revealed bilateral mastoid disease; a new finding ID recommended ENT eval- pending- per primary team s/p HD 10/30 renal US placement of permanent HD catheter pending for this am ECHO with pEF 55-60% on chronic a/c with Xarelto ?unclear reason monitor volumes swallow eval with aspiration risk diet texture as per ST recs with strict asp precautions and assistance with meals now NGT repeat BSSE when able to participate AMS 10/[address] head negative, off sedatives ammonia WNL NGT inserted for meds as per nephro recs NEED NEURO EVAL-per primary AMS improving NGT in, start on NGT feeding repeat swallow eval in am asp precautions HgA1c -6.1 hold oral anti-glycemic SSI prn ; recommend sensitive SSI initial AMS was most likely due to episode of hypoglycemia CT head NGT for acute ICP x 2 renal US atrophic kidneys, no hydro avoid nephrotoxic s/p Kayexalate and sodium bicarb gentle IVF f/up with nephro recs HD as per nephro, last 11/01 BP management with CCB and Hydralazine prn for BP spikes monitor HH with goal to keep Hgb above 7 stool OB anemia w/up noted , heme on board s/p 1 dose of Venofer on EPO hematuria resolved, Hgb at baseline GI prophayxlis supportive care WILL NEED HOME TRILOGY VENT TO BE ARRANGED ON DISCHARGE case discussed and evaluated by supervising physician Jonathon Pabon MD 11/05/19 1414: Subjective Allergies: Coded Allergies: PENICILLINS (Verified Allergy, Unknown, 10/25/19) tolerated Ceftriaxone Assessment/Plan Assessment/Plan Patient seen and examined with CIRCULATION MANAGER. Agree with above A&P as it reflects our joint deliberations. Reema Hanna NP Nov 05, 2019 10:55 Jonathon Pabon MD Nov 05, 2019 14:14
[2019-11-05 12:00] VITALS: BP 151/57
--- NOTE | 2019-11-05 13:57 | Surgery Progress Note ---
Surgery Progress Note Subjective Procedure Performed Right femoral temporary hemodialysis catheter insertion Additional Comments no acute events comfortable Objective Last 24 Hour Vital Signs Date Time Temp Pulse Resp B/P (MAP) Pulse Ox O2 Delivery O2 Flow Rate FiO2 11/05/19 12:00 97.5 79 18 151/57 (88) 100 11/05/19 12:00 75 11/05/19 12:00 4.0 11/05/19 09:00 Bi-pap 12.0 Bi-pap 12.0 11/05/19 08:12 81 163/67 11/05/19 08:07 99 Nasal Cannula 3.0 32 11/05/19 08:00 97.9 81 18 163/67 (99) 98 11/05/19 08:00 4.0 11/05/19 08:00 82 11/05/19 04:57 76 20 98 30 11/05/19 04:00 98.3 74 18 158/68 (98) 99 11/05/19 04:00 77 11/05/19 04:00 30 11/05/19 03:28 75 18 98 30 11/05/19 01:30 74 16 98 30 11/05/19 00:00 98.5 77 17 160/66 (97) 98 11/05/19 00:00 75 11/04/19 23:21 78 18 97 30 11/04/19 21:30 74 18 96 30 11/04/19 21:00 Bi-pap 12.0 Bi-pap 12.0 11/04/19 20:04 76 17 97 30 11/04/19 20:00 30 11/04/19 20:00 77 11/04/19 20:00 98.4 76 24 159/61 (93) 96 11/04/19 19:50 94 Nasal Cannula 3.0 32 11/04/19 17:15 77 161/63 11/04/19 16:48 79 11/04/19 16:00 98.2 77 19 161/63 (95) 98 11/04/19 16:00 4.0 11/04/19 14:00 98.2 79 19 168/70 (102) 96 I&O Intake and Output 11/04/19 11/05/19 19:00 07:00 Output Total 3200 ml 300 ml Balance -3200 ml -300 ml Output Urine Total 200 ml 300 ml Hemodialysis UF 3000 ml # Voids 1 Dressing: saturated Cardiovascular: RSR Respiratory: decreased breath sounds Abdomen: soft, non-tender, present bowel sounds Extremities: edema, no cyanosis Laboratory Tests Test 11/04/19 16:36 11/04/19 20:16 11/05/19 03:50 11/05/19 05:16 POC Whole Blood Glucose 103 MG/DL (74-106) 123 MG/DL (74-106) H 115 MG/DL (74-106) H White Blood Count 7.2 K/UL (4.8-10.8) Red Blood Count 3.01 M/UL (4.70-6.10) L Hemoglobin 9.2 G/DL (14.2-18.0) L Hematocrit 29.9 % (42.0-52.0) L Mean Corpuscular Volume 99 FL (80-99) Mean Corpuscular Hemoglobin 30.5 PG (27.0-31.0) Mean Corpuscular Hemoglobin Concent 30.7 G/DL (32.0-36.0) L Red Cell Distribution Width 15.9 % (11.6-14.8) H Platelet Count 171 K/UL (150-450) Mean Platelet Volume 9.0 FL (6.5-10.1) Neutrophils (%) (Auto) 75.2 % (45.0-75.0) H Lymphocytes (%) (Auto) 16.9 % (20.0-45.0) L Monocytes (%) (Auto) 6.8 % (1.0-10.0) Eosinophils (%) (Auto) 0.7 % (0.0-3.0) Basophils (%) (Auto) 0.5 % (0.0-2.0) Sodium Level 142 MMOL/L (136-145) # Potassium Level 3.8 MMOL/L (3.5-5.1) Chloride Level 103 MMOL/L (98-107) Carbon Dioxide Level 34 MMOL/L (21-32) H Anion Gap 6 mmol/L (5-15) Blood Urea Nitrogen 39 mg/dL (7-18) H Creatinine 2.9 MG/DL (0.55-1.30) H Estimat Glomerular Filtration Rate 21.0 mL/min (>60) Glucose Level 123 MG/DL (74-106) H Calcium Level 9.5 MG/DL (8.5-10.1) Phosphorus Level 3.3 MG/DL (2.5-4.9) Magnesium Level 2.4 MG/DL (1.8-2.4) Total Bilirubin 0.5 MG/DL (0.2-1.0) Direct Bilirubin 0.2 MG/DL (0.0-0.3) Aspartate Amino Transf (AST/SGOT) 25 U/L (15-37) Alanine Aminotransferase (ALT/SGPT) 19 U/L (12-78) Alkaline Phosphatase 101 U/L (46-116) Total Protein 5.9 G/DL (6.4-8.2) L Albumin 2.3 G/DL (3.4-5.0) L Test 11/05/19 12:01 POC Whole Blood Glucose 144 MG/DL (74-106) H Plan Problems: (1) Hypercarbia (2) Pleural effusion (3) Chronic renal failure (4) Anemia (5) CHF (congestive heart failure) (6) Bacteremia (7) Cellulitis Assessment & Plan: penile swelling improved no active bleeding reyes okay will monitor (8) Hypoglycemia (9) Hyponatremia (10) ATN (acute tubular necrosis) (11) Metabolic acidosis Assessment & Plan: DYSPHAGIA RISK FACTORS INCLUDE: RESPIRATORY WELL MULTIPLE MEDICAL COMPLICATIONS, SHORTNESS OF BREATH, WORK OF BREATHING, DECREASED MENTATION, HX OF SUBOPTIMAL P.O. INTAKE, LETHARGY (DIFFICULTY SUSTAINING WAKEFULNESS) , CLINICAL HISTORY: AMS CURRENT CXR: Indication: Shortness of breath Technique: One view of the chest Comparison: 10/31/2019 Findings: Interim placement of nasogastric tube, tip projected at the level of the gastric body. This was also demonstrated on 11/01/2019 abdominal radiograph. Bilateral hazy opacity appears similar to or perhaps slightly increased from the prior study. Generalized mild interstitial prominence persists. 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 TRIALS OF ICE CHIPS, ONE AT A TIME. LINGUAL SIZE PRESENTS ENLARGED. PATIENT PERSISTENTLY MOUTH BREATHING. WHEN PRESENTED WITH ONE ICE CHIP HE MANIPULATED IT, ALLOWED IT TO MELT ON HIS TONGUE AND AFTER A MODERATE DELAY, HE SWALLOWED. RR CHANGES FROM 18 BREATHS PER MINUTE TO 25 BREATHS PER MINUTE ALONG WITH WORK OF BREATHING. WHEN ASKED TO SAY "AH" POST SWALLOW, PATIENTS VOCAL QUALITY WAS WET/GURGLY. HYOLARYNGEAL EXCURSION PRESENTED MODERATELY DECREASED. PATIENT ESSENTIALLY NON/VERBAL THIS AFTERNOON. HIGH ASPIRATION RISK. HIS RISK FOR CONSISTENT/STABLE/SUFFICIENT P.O. INTAKE TO SUPPORT NUTRITION/HYDRATION NEEDS. RECOMMENDATIONS: 1. CONTINUE NON/ORAL FEEDING MANAGEMENT PRIMARY SOURCE OF NUTRITION/ HYDRATION/MEDICATION 2. NPO STATUS 3. RE/ORDER SWALLOW EVALUATION IF/WHEN PATIENTS MEDICAL STATUS STABILIZES. (12) Pneumonia (13) Cellulitis of foot Assessment & Plan: Pt presented on admission with Bilat TMA. Pressure injuries both heels. Stable dry necrosis note to Plantar /lateral L TMA. L Heel is boggy with non- Blanchable erythema. . R Heel Boggy with Non-Blanchable erythema.Haemosiderin with Xerosis skin noted to R and L lower ext. Darker skin tone without erythema , induration or fluctuance Medial L Malleolus. Darker skin tone without erythema or induration noted to sacrum. Tx.Plan: Apply Moisture Barrier Paste to Sacrum. Cover with Optifoam drsg.Change every 3 days and prn. Apply Betadine to eschar plantar/lateral L TMA . Cover with Optifoam drsg. Change every 3 days and prn. Apply Cavilon Skin Barrier to both heels and Malleoli. Cover each site with Optifoam drsg. Change every 7days and prn. Reposition at least every 2hours or as tolerated. Off load heels with pillow.Hx prior amputation prior MRI and plain films reviewed wounds stable and local care being provided no abscess noted cont with dressings elevate heels with pillow turn q2h off load pressure air mattress will follow with recs thank you (14) Osteomyelitis (15) History of hypertension (16) Renal failure (ARF), acute on chronic (17) Acute encephalopathy (18) Diabetes mellitus (19) Hypertension (20) Cholelithiasis Assessment & Plan: US reviewed exam benign asymptomatic cholelithiasis alk phos mild elevated lfts improved trend labs no acute surgical intervention planned Liver: Liver measures 14.8 cm. No intrahepatic bile duct dilation. Gallbladder: Small stone in the gallbladder. No significant gallbladder wall thickening or pericholecystic fluid. Negative sonographic Bianchi's sign. Common bile duct: Normal common bile duct measuring 4.5 mm. No stones. No dilation. Pancreas: Pancreas is not visualized due to overlying bowel gas. Kidneys: Right kidney measures 9.1 cm in length. No hydronephrosis or stone. Left kidney not visualized due to patient's body habitus. Spleen: Spleen measures 9.4 cm. No focal lesion. Aorta: Visualized portions of the aorta are grossly unremarkable. The mid and distal portions are obscured by bowel gas. Inferior vena cava: Unremarkable. Free fluid: No ascites. Tubes, lines and devices: Reyes catheter in a decompressed bladder. IMPRESSION: Small stone in the gallbladder. No significant gallbladder wall thickening or pericholecystic fluid. Negative sonographic Bianchi's sign. Mariusz Diehl Nov 05, 2019 13:57
[2019-11-05 15:57] VITALS: BP 145/57
[2019-11-05 20:00] VITALS: BP 138/50
[2019-11-05] MEDS: Dyna-Hex 2% Top Sol 2oz TOPIC SCH (20:26)
[2019-11-05] MEDS: Epoetin Alfa-EPBX(ESRD on dialysis)10,000 unit/ml vial SUBQ SCH (20:27)
[2019-11-05] MEDS: Miralax 17gm pkt NG SCH (20:27)
[2019-11-06] VITALS (7 sets, daily range): BP systolic 140–156; BP diastolic 51–70
[2019-11-06 04:30] LABS: BASOPHILS % (AUTO) 0.3 % (0.0-2.0); EOSINOPHILS % (AUTO) 0.8 % (0.0-3.0); HEMATOCRIT 30.3 % (42.0-52.0); HEMOGLOBIN 9.2 G/DL (14.2-18.0); LYMPHOCYTES % (AUTO) 15.3 % (20.0-45.0); MEAN CORPUSCULAR VOLUME 101 FL (80-99); MONOCYTES % (AUTO) 7.6 % (1.0-10.0); PLATELET COUNT 167 K/UL (150-450); RED BLOOD COUNT 3.01 M/UL (4.70-6.10); RED CELL DISTRIBUTION WIDTH 16.3 % (11.6-14.8); WHITE BLOOD COUNT 8.4 K/UL (4.8-10.8)
[2019-11-06 04:46] LABS: ALANINE AMINOTRANSFERASE 18 U/L (12-78); ALBUMIN 2.1 G/DL (3.4-5.0); ALBUMIN/GLOBULIN RATIO 0.6 (1.0-2.7); ALKALINE PHOSPHATASE 96 U/L (46-116); ANION GAP 5 mmol/L (5-15); ASPARTATE AMINO TRANSFERASE 21 U/L (15-37); BILIRUBIN,TOTAL 0.4 MG/DL (0.2-1.0); BLOOD UREA NITROGEN 46 mg/dL (7-18); CALCIUM 9.1 MG/DL (8.5-10.1); CARBON DIOXIDE 34 MMOL/L (21-32); CHLORIDE 103 MMOL/L (98-107); CREATININE 3.5 MG/DL (0.55-1.30); PHOSPHORUS 3.2 MG/DL (2.5-4.9); POTASSIUM 3.8 MMOL/L (3.5-5.1); SODIUM 142 MMOL/L (136-145)
[2019-11-06] MEDS: NovoLOG Insulin Flexpen SUBQ SCH ×3 (05:39→18:32)
[2019-11-06] MEDS ORDERED: NovoLOG Insulin Flexpen SUBQ SCH (06:00)
--- NOTE | 2019-11-06 08:10 | General Progress Note ---
Assessment/Plan Assessment/Plan: Covering Dr. Chang ASSESSMENT AND RECOMMENDATIONS: # Anemia of chronic disease due to underlying chronic medical issues, multifactorial --> Anemia w/u has been reviewed. --> no evidence of hemolysis is noted, peripheral smear has been reviewed --> hgb goal is >7, transfuse as needed --> currently remains stable, occult blood negative --> hgb 8.4->8.6->8.3->8->8.2->9.2-->9.2 --> some blood loss due to hematuria after inflated reyes pulled 8/6 am --> EPOGEN Started # Acute kidney injury r/o potential reversible component --> reviewed meds, those that are renally cleared removed --> as per renal recs, appreciated --> cr 3.5-->4.2 --> Hd started and dw renal # Hypertension, essential --> sbp goal is <140, consider anti-htn as needed --> currently started on hyralazine 25mg po q6h prn sbp >140 # CHF - hx of CHf --> diuresis with lasix as needed --> cardiology recs appreciated prior adm #. Leukocytosis with underlying infectionv stress reaction HISTORY --> per id and better --> for infection, ABX ctx/vanc-->off #. Bilateral lower extremity amputee, metatarsal several years ago #. Hyperkalemia -- kayxelate as needed #. Dvt ppx scds --> apixaban->off The time the note was entered does not necessarily correspond to the time the patient was seen. GREATLY APPRECIATE CONSULTATION. Subjective HEENT: Denies: no symptoms, eye pain, blurred vision, tearing, double vision, ear pain, ear discharge, nose pain, nose congestion, throat pain, throat swelling, mouth pain, mouth swelling, other Cardiovascular: Denies: no symptoms, chest pain, edema, irregular heart rate, lightheadedness, palpitations, syncope, other Respiratory: Denies: no symptoms, cough, orthopnea, shortness of breath, SOB with excertion, SOB at rest, sputum, stridor, wheezing, other Gastrointestinal/Abdominal: Denies: no symptoms, abdomen distended, abdominal pain, black stools, tarry stools, blood in stool, constipated, diarrhea, difficulty swallowing, nausea, poor appetite, poor fluid intake, rectal bleeding , vomiting, other Genitourinary: Denies: no symptoms, burning, discharge, frequency, flank pain, hematuria, incontinence, pain, urgency, other Neurologic/Psychiatric: Denies: no symptoms, anxiety, depressed, emotional problems, headache, numbness, paresthesia, pre-existing deficit, seizure, tingling, tremors, weakness, other Endocrine: Denies: no symptoms, excessive sweating, flushing, intolerance to cold, intolerance to heat, increased hunger, increased thirst, increased urine, unexplained weight gain, unexplained weight loss, other Hematologic/Lymphatic: Denies: no symptoms, anemia, easy bleeding, easy bruising, other Allergies: Coded Allergies: PENICILLINS (Verified Allergy, Unknown, 10/25/19) tolerated Ceftriaxone Subjective 10/[address] Chang, to do best to avoid haldol, continue restraints, jag rn, on nc, feeling better 10/25 still with some agitation overnight, meds reviewed, jag rn, haldol given in AM 10/26 is on 2l nc, also is on restraints, no night sweats, no bleeding 10/27 reyes catheter has been removed by patient, and resinserted, bed sheets, with bright red blood on exam 10/28 labs are noted, no bleeding, cr is worse, seen by renal, remains edematous 11/04 no major changes, hd as per renal, recs are noted, labs reviewed, pending neuro eval 11/05 is on bipap with restraints, no major changes, no bleeding, labs noted Objective Last 24 Hour Vital Signs Date Time Temp Pulse Resp B/P (MAP) Pulse Ox O2 Delivery O2 Flow Rate FiO2 11/06/19 05:17 76 18 98 30 11/06/19 04:00 30 11/06/19 04:00 Bi-pap 12.0 Bi-pap 12.0 11/06/19 04:00 98.2 73 19 156/66 (96) 99 11/06/19 03:57 76 11/06/19 03:10 74 19 99 30 11/06/19 01:18 72 20 99 30 11/06/19 00:00 68 11/06/19 00:00 68 11/06/19 00:00 98.4 66 16 140/53 (82) 99 11/06/19 00:00 Bi-pap 12.0 Bi-pap 12.0 11/06/19 00:00 30 11/05/19 23:25 68 16 99 30 11/05/19 21:30 30 11/05/19 21:23 66 16 98 30 11/05/19 20:00 98.4 73 20 138/50 (79) 100 11/05/19 20:00 4.0 11/05/19 20:00 75 11/05/19 20:00 Nasal Cannula 4.0 Nasal Cannula 4.0 11/05/19 19:11 98 Nasal Cannula 3.0 32 11/05/19 17:32 79 145/57 11/05/19 16:00 79 11/05/19 15:57 97.0 80 18 145/57 (86) 100 11/05/19 15:57 4.0 11/05/19 12:00 97.5 79 18 151/57 (88) 100 11/05/19 12:00 75 11/05/19 12:00 4.0 11/05/19 09:00 Bi-pap 12.0 Bi-pap 12.0 11/05/19 08:12 81 163/67 Intake and Output 11/05/19 11/06/19 19:00 07:00 Intake Total 290 ml 180 ml Balance 290 ml 180 ml Free Water 90 ml Tube Feeding 290 ml 90 ml # Voids 1 3 # Bowel Movements 1 2 Laboratory Tests 11/05/19 12:01: POC Whole Blood Glucose 144H 11/05/19 16:38: POC Whole Blood Glucose 161H 11/05/19 20:26: POC Whole Blood Glucose [Pending] 11/06/19 03:10: White Blood Count 8.4, Red Blood Count 3.01L, Hemoglobin 9.2L, Hematocrit 30.3L , Mean Corpuscular Volume 101H, Mean Corpuscular Hemoglobin 30.4, Mean Corpuscular Hemoglobin Concent 30.3L, Red Cell Distribution Width 16.3H, Platelet Count 167, Mean Platelet Volume 8.1, Neutrophils (%) (Auto) 76.0H, Lymphocytes (%) (Auto) 15.3L, Monocytes (%) (Auto) 7.6, Eosinophils (%) (Auto) 0.8, Basophils (%) (Auto) 0.3, Sodium Level 142, Potassium Level 3.8, Chloride Level 103, Carbon Dioxide Level 34H, Anion Gap 5, Blood Urea Nitrogen 46H, Creatinine 3.5H, Estimat Glomerular Filtration Rate 16.9, Glucose Level 126H, Calcium Level 9.1, Phosphorus Level 3.2, Magnesium Level 2.4, Total Bilirubin 0.4, Aspartate Amino Transf (AST/SGOT) 21, Alanine Aminotransferase (ALT/SGPT) 18, Alkaline Phosphatase 96, C-Reactive Protein, Quantitative 3.4H, Pro-B-Type Natriuretic Peptide 07452O, Total Protein 5.5L, Albumin 2.1L, Globulin 3.4, Albumin/Globulin Ratio 0.6L 11/06/19 05:37: POC Whole Blood Glucose 117H Height (Feet): 5 Height (Inches): 8.00 Weight (Pounds): 209 Objective GENERAL: Not in acute distress. PULMONARY: Decreased breath sounds. ++ bipap +ngt CARDIOVASCULAR: Regular rate. No S3 or S4. ABDOMEN: Soft, nontender, nondistended. EXTREMITIES: 1+ edema. No cyanosis, swelling, or edema. 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 Melvin Rizzo MD Nov 06, 2019 08:10
[2019-11-06] MEDS: Pantoprazole Inj IVP SCH ×2 (09:45→21:17)
[2019-11-06] MEDS: Docusate 100mg/10ml Liq NG SCH ×3 (09:46→18:22)
[2019-11-06] MEDS: Renvela 800mg Pkt NG SCH ×3 (09:46→18:23)
[2019-11-06] MEDS: Lactulose 10gm/15ml UDC NG SCH ×2 (09:46→18:22)
--- NOTE | 2019-11-06 10:57 | Pulmonology Progress Note ---
Reema Hanna CAR SPOTTER 11/06/19 1057: Subjective ROS Limited/Unobtainable: Yes Allergies: Coded Allergies: PENICILLINS (Verified Allergy, Unknown, 10/25/19) tolerated Ceftriaxone All Systems: reviewed and negative except above Subjective more awake off Bipap ( used at HS) on O 2 via NC no resp distress CXR 11/02 not much change TF via NGT BSSE pending for this am still pending neuro eval remains afebrile, no leukocytosis tunneled HD catheter placement was rescheduled due to Eliquis Objective Last 24 Hour Vital Signs Date Time Temp Pulse Resp B/P (MAP) Pulse Ox O2 Delivery O2 Flow Rate FiO2 11/06/19 09:46 79 155/70 11/06/19 08:00 Nasal Cannula 3.0 Bi-pap 12.0 11/06/19 08:00 97.9 80 18 155/70 (98) 99 11/06/19 08:00 3.0 11/06/19 08:00 79 11/06/19 07:30 98 Nasal Cannula 3.0 32 11/06/19 05:17 76 18 98 30 11/06/19 04:00 30 11/06/19 04:00 Bi-pap 12.0 Bi-pap 12.0 11/06/19 04:00 98.2 73 19 156/66 (96) 99 11/06/19 03:57 76 11/06/19 03:10 74 19 99 30 11/06/19 01:18 72 20 99 30 11/06/19 00:00 68 11/06/19 00:00 68 11/06/19 00:00 98.4 66 16 140/53 (82) 99 11/06/19 00:00 Bi-pap 12.0 Bi-pap 12.0 11/06/19 00:00 30 11/05/19 23:25 68 16 99 30 11/05/19 21:30 30 11/05/19 21:23 66 16 98 30 11/05/19 20:00 98.4 73 20 138/50 (79) 100 11/05/19 20:00 4.0 11/05/19 20:00 75 11/05/19 20:00 Nasal Cannula 4.0 Nasal Cannula 4.0 11/05/19 19:11 98 Nasal Cannula 3.0 32 11/05/19 17:32 79 145/57 11/05/19 16:00 79 11/05/19 15:57 97.0 80 18 145/57 (86) 100 11/05/19 15:57 4.0 11/05/19 12:00 97.5 79 18 151/57 (88) 100 11/05/19 12:00 75 11/05/19 12:00 4.0 Intake and Output 11/05/19 11/06/19 19:00 07:00 Intake Total 290 ml 180 ml Balance 290 ml 180 ml Free Water 90 ml Tube Feeding 290 ml 90 ml # Voids 1 3 # Bowel Movements 1 2 Objective General Appearance: no apparent distress, Hungarian speaking confused male, Lines, tubes and drains: R femoral HEENT: normocephalic, atraumatic, anicteric, mucous membranes moist, O2 3 L via NC, NGT Respiratory/Chest: few scattered crackles, no exp wheezing, Cardiovascular/Chest: normal rate, regular rhythm Abdomen: normal bowel sounds, non tender, soft Extremities: partially amputated BL foot/metatarsal Skin Exam: warm/dry Neurologic: abnormal gait, not much responsive, Musculoskeletal: atrophy BLE Laboratory Tests 11/05/19 12:01: POC Whole Blood Glucose 144H 11/05/19 16:38: POC Whole Blood Glucose 161H 11/05/19 20:26: POC Whole Blood Glucose [Pending] 11/06/19 03:10: White Blood Count 8.4, Red Blood Count 3.01L, Hemoglobin 9.2L, Hematocrit 30.3L , Mean Corpuscular Volume 101H, Mean Corpuscular Hemoglobin 30.4, Mean Corpuscular Hemoglobin Concent 30.3L, Red Cell Distribution Width 16.3H, Platelet Count 167, Mean Platelet Volume 8.1, Neutrophils (%) (Auto) 76.0H, Lymphocytes (%) (Auto) 15.3L, Monocytes (%) (Auto) 7.6, Eosinophils (%) (Auto) 0.8, Basophils (%) (Auto) 0.3, Sodium Level 142, Potassium Level 3.8, Chloride Level 103, Carbon Dioxide Level 34H, Anion Gap 5, Blood Urea Nitrogen 46H, Creatinine 3.5H, Estimat Glomerular Filtration Rate 16.9, Glucose Level 126H, Calcium Level 9.1, Phosphorus Level 3.2, Magnesium Level 2.4, Total Bilirubin 0.4, Aspartate Amino Transf (AST/SGOT) 21, Alanine Aminotransferase (ALT/SGPT) 18, Alkaline Phosphatase 96, C-Reactive Protein, Quantitative 3.4H, Pro-B-Type Natriuretic Peptide 05822E, Total Protein 5.5L, Albumin 2.1L, Globulin 3.4, Albumin/Globulin Ratio 0.6L 11/06/19 05:37: POC Whole Blood Glucose 117H Current Medications Medications (Trade) Dose Ordered Sig/Cammy Route PRN Reason Start Time Stop Time Status Last Admin Dose Admin Acetaminophen (Tylenol) 650 mg Q6H PRN NG Pain 3-5 11/03/19 11:15 12/02/19 11:14 Amlodipine Besylate (Norvasc) 5 mg BID NG 11/03/19 18:00 11/25/19 08:59 11/06/19 09:46 Atorvastatin Calcium (Lipitor) 10 mg BEDTIME NG 11/03/19 21:00 01/21/20 20:59 11/05/19 20:27 Chlorhexidine Gluconate (Yi-Hex 2%) 1 applic DAILY@1999 TOPIC 11/03/19 20:00 01/31/20 19:59 11/05/19 20:26 Dextrose (Dextrose 50%) 25 ml Q30M PRN IV Hypoglycemia 11/03/19 11:15 01/20/20 21:44 Dextrose (Dextrose 50%) 50 ml Q30M PRN IV Hypoglycemia 11/03/19 11:15 01/20/20 21:44 Docusate Sodium (Colace) 100 mg THREE TIMES A DAY NG 11/03/19 13:00 12/02/19 17:59 11/06/19 09:46 Epoetin William (Epoetin William(ESRD on dialysis)) 10,000 unit FRI-FRI-FRI SUBQ 11/03/19 21:00 02/01/20 20:59 11/05/19 20:27 Haloperidol (Haldol) 5 mg Q12H PRN NG Agitation 11/03/19 11:15 12/17/19 11:14 Haloperidol Lactate (Haldol) 5 mg Q6H PRN IM Agitation 11/03/19 11:15 12/10/19 11:14 Hydralazine HCl (Apresoline) 10 mg Q4H PRN IV For High Blood Pressure 11/03/19 11:15 01/24/20 11:14 Insulin Aspart (NovoLOG) Q6HR SUBQ 11/06/19 06:00 01/31/20 06:29 Lactulose (Cephulac) 10 gm BID NG 11/03/19 18:00 12/01/19 08:59 11/06/19 09:46 Levothyroxine Sodium (Synthroid) 75 mcg DAILY@0630 ORAL 11/04/19 06:30 12/04/19 06:29 11/06/19 05:38 Pantoprazole (Protonix) 40 mg EVERY 12 HOURS IVP 11/03/19 21:00 11/22/19 08:59 11/06/19 09:45 Polyethylene Glycol (Miralax) 17 gm BEDTIME NG 11/03/19 21:00 12/01/19 20:59 11/05/19 20:27 Sennosides (Senokot) 8.6 mg HSPRN PRN NG Constipation 11/03/19 16:15 12/02/19 16:14 Sevelamer Carbonate (Renvela) 1,600 mg THREE TIMES A DAY NG 11/03/19 13:00 01/21/20 17:59 11/06/19 09:46 Assessment/Plan Assessment/Plan ASSESSMENT Acute hypoxemic hypercapnic respiratory failure requiring BiPAP Acute metabolic encephalopathy likely due to hypoglycemia Diabetes mellitus with initial hypoglycemia Probably pneumonia Aspiration risk Acute kidney injury on chronic kidney disease, requiring start of HD 10/30 Severe anemia requiring blood transfusion Metabolic acidosis Electrolyte imbalance :hyponatremia, hyperkalemia HTN with HTN urgency Dysphagia Hematuria 2 to pt pulled off his Lyles catheter Possibly DAYANA [employer] OF [employer] TOYIN BiPAP at HS and prn currently on O2 3 L via NC titrate O2, pulm toilet patient likely had DAYANA. recommend sleep study as OP CXR 11/02 -> Stable slightly increased bilateral pleural effusions. 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 10/21 and 10/24 rapid COVID NGT, abx as per ID recs -> Ceftriaxone , completed 10/30 ; s/p Vanco , completed Rx for PNA 7 days, remains afebrile no leucocytosis BCX 10/21 NGTD UCX NGT SCX if able Venous Duplex BLE 10/25 -> NGT CT head revealed bilateral mastoid disease; a new finding ID recommended ENT eval- pending- per primary team on HD/ started 10/30 renal US placement of permanent HD catheter rescheduled due to Eliquis ECHO with pEF 55-60% on chronic a/c with Xarelto ?unclear reason monitor volumes swallow eval with aspiration risk diet texture as per ST recs with strict asp precautions and assistance with meals now NGT repeat BSSE11/04 -> recommended nonoral feeding started on NGT feeding strict aspiration precautions repeat BSSE when more stable, o/w may need G tube AMS 10/[address] head negative, off sedatives ammonia WNL NGT inserted for meds as per nephro recs NEED NEURO EVAL-per primary AMS somewhat improving to baseline HgA1c -6.1 hold oral anti-glycemic SSI prn sensitive initial AMS was most likely due to episode of hypoglycemia CT head NGT for acute ICP -done x 2 renal US atrophic kidneys, no hydro avoid nephrotoxic s/p Kayexalate and sodium bicarb gentle IVF f/up with nephro recs HD as per nephro, last 11/01 BP management with CCB and Hydralazine prn for BP spikes monitor HH with goal to keep Hgb above 7 stool OB anemia w/up noted , heme on board s/p 1 dose of Venofer on EPO hematuria resolved, Hgb at baseline GI prophayxlis supportive care WILL NEED HOME TRILOGY VENT TO BE ARRANGED ON DISCHARGE case discussed and evaluated by supervising physician Leoncio Galan MD 11/06/191923: Subjective Allergies: Coded Allergies: PENICILLINS (Verified Allergy, Unknown, 10/25/19) tolerated Ceftriaxone Assessment/Plan Assessment/Plan Patient seen and examined with CAR SPOTTER. Agree with above A&P as it reflects our joint deliberations. Reema Hanna NP Nov 06, 2019 10:57 Leoncio Galan MD Nov 06, 2019 19:24
--- NOTE | 2019-11-06 12:13 | Nephrology Progress Note ---
Assessment/Plan Problem List: (1) Renal failure (ARF), acute on chronic (2) Metabolic acidosis (3) Electrolyte imbalance Assessment: Hyponatremia and hyperkalemia (4) Anemia (5) CHF (congestive heart failure) Assessment 79-year-old male is admitted for hypoglycemia Patient has renal failure which appears to be acute on chronic Hyperkalemia Hyponatremia CHF, pleural effusion, pneumonia Anemia Metabolic acidosis Hypothyroidism Plan November 05: Last dialysis November 03. Eliquis on hold. Due tunneled catheter insertion on November 07. Labs are reviewed. Continue current management. November 04: Dialyzed yesterday. Due for insertion of tunneled catheter today. May need to hold Eliquis and reschedule catheter insertion on Friday. Will monitor renal parameters in the meantime. November 03: Dialyzed this morning. Stable from renal standpoint of view. Due for insertion of tunneled catheter tomorrow. November 02: Dialyzed yesterday. Will DC IV fluid. Dialysis tomorrow. Potassium supplement given. Per orders. November 01: Patient currently being dialyzed. Tolerating well. Labs will be reviewed. Continue per consultants. October 31: Patient was dialyzed yesterday. Clinically doing better. We will continue to monitor renal parameters. Dialysis as needed. October 30: Serum creatinine rising. Patient due to have a temporary dialysis catheter and due for dialysis today. Will continue to follow-up renal parameters. Patient remains full code. October 29: Serum creatinine rising. Serum creatinine 4.5 today. Calculated creatinine clearance is 12. Kidney ultrasound ordered yesterday results were reviewed. Patient appears to have acute renal failure due to underlying sepsis and nephrotoxic medications. Patient requires dialysis treatment. Ordered to obtain consent from the responsible alliance party. Will communicate with PMD and or he is coverage. October 28: Serum creatinine higher to 4.2 today. Blood pressure appears more stable. In view of worsening renal failure, will order stat kidney ultrasound and urine studies. Continue to monitor renal parameters. Patient is full code. Worsening renal parameters may lead to hemodialysis treatment. October 27: Patient pulled out the Lyles catheter. Serum creatinine went up to 3.8. Blood pressure somewhat low. Heart rate in 50s. Will discontinue Coreg. We will continue to monitor renal parameters. October 26: Serum creatinine lower again today. Will abort the dialysis plan. Continue per consultants. Continue to monitor renal parameters. Medication list reviewed. October 25: Clinically improving. Serum creatinine lower. Urine output increased. No dialysis planned at this time. Continue per consultants. October 24: Patient's respiratory status somewhat improved. Serum creatinine down to 3.9. Urinary output somewhat increased. Will hold placement of dialysis catheter at this time. Blood pressure medication adjusted. Continue to monitor renal parameters. Per orders. October 23: Patient remains on BiPAP. More Kayexalate ordered. Will consider hemodialysis to correct fluid overload and hyperkalemia and acidosis. Will discuss with PMD. Meanwhile IV Synthroid started. Discussed with RN Timothy Patient already transfused 1 unit for severe anemia previously Will initiate Epogen 10,000 units subcutaneously 1 dose of IV iron Venofer 200 g IV Kayexalate for hyperkalemia as needed 2D echocardiogram ordered, ejection fraction is reported normal Kidney ultrasound ordered: Kidneys: Right kidney measures 9.1 cm in length. No hydronephrosis or stone. Left kidney not visualized due to patient's body habitus. Avoid nephrotoxic's Monitor renal parameters Will hold insulin and hypoglycemic agents until hypoglycemia is reasonably resolved Subjective ROS Limited/Unobtainable: No Constitutional: Reports: malaise, weakness Objective Objective Last 24 Hour Vital Signs Date Time Temp Pulse Resp B/P (MAP) Pulse Ox O2 Delivery O2 Flow Rate FiO2 11/06/19 09:46 79 155/70 11/06/19 08:00 Nasal Cannula 3.0 Bi-pap 12.0 11/06/19 08:00 97.9 80 18 155/70 (98) 99 11/06/19 08:00 3.0 11/06/19 08:00 79 11/06/19 07:30 98 Nasal Cannula 3.0 32 11/06/19 05:17 76 18 98 30 11/06/19 04:00 30 11/06/19 04:00 Bi-pap 12.0 Bi-pap 12.0 11/06/19 04:00 98.2 73 19 156/66 (96) 99 11/06/19 03:57 76 11/06/19 03:10 74 19 99 30 11/06/19 01:18 72 20 99 30 11/06/19 00:00 68 11/06/19 00:00 68 11/06/19 00:00 98.4 66 16 140/53 (82) 99 11/06/19 00:00 Bi-pap 12.0 Bi-pap 12.0 11/06/19 00:00 30 11/05/19 23:25 68 16 99 30 11/05/19 21:30 30 11/05/19 21:23 66 16 98 30 11/05/19 20:00 98.4 73 20 138/50 (79) 100 11/05/19 20:00 4.0 11/05/19 20:00 75 11/05/19 20:00 Nasal Cannula 4.0 Nasal Cannula 4.0 11/05/19 19:11 98 Nasal Cannula 3.0 32 11/05/19 17:32 79 145/57 11/05/19 16:00 79 11/05/19 15:57 97.0 80 18 145/57 (86) 100 11/05/19 15:57 4.0 Intake and Output 11/05/19 11/06/19 19:00 07:00 Intake Total 290 ml 180 ml Balance 290 ml 180 ml Free Water 90 ml Tube Feeding 290 ml 90 ml # Voids 1 3 # Bowel Movements 1 2 Current Medications Medications (Trade) Dose Ordered Sig/Cammy Route PRN Reason Start Time Stop Time Status Last Admin Dose Admin Acetaminophen (Tylenol) 650 mg Q6H PRN NG Pain 3-5 11/03/19 11:15 12/02/19 11:14 Amlodipine Besylate (Norvasc) 5 mg BID NG 11/03/19 18:00 11/25/19 08:59 11/06/19 09:46 Atorvastatin Calcium (Lipitor) 10 mg BEDTIME NG 11/03/19 21:00 01/21/20 20:59 11/05/19 20:27 Chlorhexidine Gluconate (Yi-Hex 2%) 1 applic DAILY@1999 TOPIC 11/03/19 20:00 01/31/20 19:59 11/05/19 20:26 Dextrose (Dextrose 50%) 25 ml Q30M PRN IV Hypoglycemia 11/03/19 11:15 01/20/20 21:44 Dextrose (Dextrose 50%) 50 ml Q30M PRN IV Hypoglycemia 11/03/19 11:15 01/20/20 21:44 Docusate Sodium (Colace) 100 mg THREE TIMES A DAY NG 11/03/19 13:00 12/02/19 17:59 11/06/19 09:46 Epoetin William (Epoetin William(ESRD on dialysis)) 10,000 unit SUBQ 11/03/19 21:00 02/01/20 20:59 11/05/19 20:27 Haloperidol (Haldol) 5 mg Q12H PRN NG Agitation 11/03/19 11:15 12/17/19 11:14 Haloperidol Lactate (Haldol) 5 mg Q6H PRN IM Agitation 11/03/19 11:15 12/10/19 11:14 Hydralazine HCl (Apresoline) 10 mg Q4H PRN IV For High Blood Pressure 11/03/19 11:15 01/24/20 11:14 Insulin Aspart (NovoLOG) Q6HR SUBQ 11/06/19 06:00 01/31/20 06:29 Lactulose (Cephulac) 10 gm BID NG 11/03/19 18:00 12/01/19 08:59 11/06/19 09:46 Levothyroxine Sodium (Synthroid) 75 mcg DAILY@0630 ORAL 11/04/19 06:30 12/04/19 06:29 11/06/19 05:38 Pantoprazole (Protonix) 40 mg EVERY 12 HOURS IVP 11/03/19 21:00 11/22/19 08:59 11/06/19 09:45 Polyethylene Glycol (Miralax) 17 gm BEDTIME NG 11/03/19 21:00 12/01/19 20:59 11/05/19 20:27 Sennosides (Senokot) 8.6 mg HSPRN PRN NG Constipation 11/03/19 16:15 12/02/19 16:14 Sevelamer Carbonate (Renvela) 1,600 mg THREE TIMES A DAY NG 11/03/19 13:00 01/21/20 17:59 11/06/19 09:46 Laboratory Tests 11/05/19 16:38: POC Whole Blood Glucose 161H 11/05/19 20:26: POC Whole Blood Glucose [Pending] 11/06/19 03:10: White Blood Count 8.4, Red Blood Count 3.01L, Hemoglobin 9.2L, Hematocrit 30.3L , Mean Corpuscular Volume 101H, Mean Corpuscular Hemoglobin 30.4, Mean Corpuscular Hemoglobin Concent 30.3L, Red Cell Distribution Width 16.3H, Platelet Count 167, Mean Platelet Volume 8.1, Neutrophils (%) (Auto) 76.0H, Lymphocytes (%) (Auto) 15.3L, Monocytes (%) (Auto) 7.6, Eosinophils (%) (Auto) 0.8, Basophils (%) (Auto) 0.3, Sodium Level 142, Potassium Level 3.8, Chloride Level 103, Carbon Dioxide Level 34H, Anion Gap 5, Blood Urea Nitrogen 46H, Creatinine 3.5H, Estimat Glomerular Filtration Rate 16.9, Glucose Level 126H, Calcium Level 9.1, Phosphorus Level 3.2, Magnesium Level 2.4, Total Bilirubin 0.4, Aspartate Amino Transf (AST/SGOT) 21, Alanine Aminotransferase (ALT/SGPT) 18, Alkaline Phosphatase 96, C-Reactive Protein, Quantitative 3.4H, Pro-B-Type Natriuretic Peptide 36533F, Total Protein 5.5L, Albumin 2.1L, Globulin 3.4, Albumin/Globulin Ratio 0.6L 11/06/19 05:37: POC Whole Blood Glucose 117H Height (Feet): 5 Height (Inches): 8.00 Weight (Pounds): 209 General Appearance: no apparent distress Cardiovascular: normal rate Respiratory/Chest: decreased breath sounds Abdomen: distended Objective No change Naveed Vanegas MD Nov 06, 2019 12:13
--- NOTE | 2019-11-06 14:05 | Infectious Diseases Prog Note ---
Assessment/Plan 79yo M from SNF who p/w hypoglycemia and resp failure: Acute hypoxic respiratory failure, on BiPAP > 2L NC> RA > 2L NC Rapid COVID neg x2 (10/21, 10/24) Pneumonia on CXR Volume overload 10/30 CXR: Slightly improved 10/25 CXR: Bilateral alveolar densities are unchanged 10/24 Sp cx normal resp demario (prelim) 10/23 CXR: 1. Small layering right pleural effusion, not significantly changed. The previously noted small left pleural effusion is not as evident.Prominent lung markings and haziness, right greater left, which may be related to pulmonary vascular congestion versus pneumonitis. This is not significantly changed.. Subsegmental atelectasis versus infiltrate in the medial left lung base, also not significantly changed. 10/21 CXR: 1. Small bilateral pleural effusions. Bibasilar atelectasis versus pneumonia. 2. Prominent lung markings and hazy opacities in right greater than left lungs may represent artifact versus pulmonary vasculature congestion and edema versus infectious/inflammatory process. 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 10/31 No clear clinical correlate to this imaging finding, s/p 7 days of CTX which is good abx for mastoiditis Hypercapnia, ongoing; on BiPAP Afebrile No leukocytosis Anemia to 6.8, improved UA neg, UCx neg R/o bacteremia 10/21 BCx NTD ALEXIS on CKD, worsening --> now on HD HBsAg neg Plan: Cont to monitor off abx, s/p 7d of abx for pna, but this also covered for possible mastoiditis ENT to evaluate ears/TMs for signs of underlying mastoiditis, as seen on CT head ; would appreciate the evaluation as pt unable to tell us if he has ear pain/DE LEON , etc; if unable to obtain in house, OK for pt to have outpt ENT f/u for evaluation given that pt has remained AF wo s/sx of ear infection here, and there is no pain on ear exam here (though unable to fully evaluate the inner ears) 10/31 SP CTX #7 10/26 SP vancomycin IV #5 Trend resp status Monitor CBC, CMP D/w RN Thank you for this consult. [facility] will continue to follow. Subjective Allergies: Coded Allergies: PENICILLINS (Verified Allergy, Unknown, 10/25/19) tolerated Ceftriaxone afebrile at 2L NC cr increased Objective Last 24 Hour Vital Signs Date Time Temp Pulse Resp B/P (MAP) Pulse Ox O2 Delivery O2 Flow Rate FiO2 11/06/19 12:00 Nasal Cannula 3.0 Bi-pap 12.0 11/06/19 12:00 3.0 11/06/19 12:00 98.2 77 19 148/56 (86) 100 11/06/19 09:46 79 155/70 11/06/19 08:00 Nasal Cannula 3.0 Bi-pap 12.0 11/06/19 08:00 97.9 80 18 155/70 (98) 99 11/06/19 08:00 3.0 11/06/19 08:00 79 11/06/19 07:30 98 Nasal Cannula 3.0 32 11/06/19 05:17 76 18 98 30 11/06/19 04:00 30 11/06/19 04:00 Bi-pap 12.0 Bi-pap 12.0 11/06/19 04:00 98.2 73 19 156/66 (96) 99 11/06/19 03:57 76 11/06/19 03:10 74 19 99 30 11/06/19 01:18 72 20 99 30 11/06/19 00:00 68 11/06/19 00:00 68 11/06/19 00:00 98.4 66 16 140/53 (82) 99 11/06/19 00:00 Bi-pap 12.0 Bi-pap 12.0 11/06/19 00:00 30 11/05/19 23:25 68 16 99 30 11/05/19 21:30 30 11/05/19 21:23 66 16 98 30 11/05/19 20:00 98.4 73 20 138/50 (79) 100 11/05/19 20:00 4.0 11/05/19 20:00 75 11/05/19 20:00 Nasal Cannula 4.0 Nasal Cannula 4.0 11/05/19 19:11 98 Nasal Cannula 3.0 32 11/05/19 17:32 79 145/57 11/05/19 16:00 79 11/05/19 15:57 97.0 80 18 145/57 (86) 100 11/05/19 15:57 4.0 Height (Feet): 5 Height (Inches): 8.00 Weight (Pounds): 209 Gen NAD Pulm: BL chest rise Abd: Obese, soft, NTND Ext: No c/c/e, 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 Laboratory Tests Test 11/05/19 16:38 11/05/19 20:26 11/06/19 03:10 11/06/19 05:37 POC Whole Blood Glucose 161 MG/DL (74-106) H Pending 117 MG/DL (74-106) H White Blood Count 8.4 K/UL (4.8-10.8) Red Blood Count 3.01 M/UL (4.70-6.10) L Hemoglobin 9.2 G/DL (14.2-18.0) L Hematocrit 30.3 % (42.0-52.0) L Mean Corpuscular Volume 101 FL (80-99) H Mean Corpuscular Hemoglobin 30.4 PG (27.0-31.0) Mean Corpuscular Hemoglobin Concent 30.3 G/DL (32.0-36.0) L Red Cell Distribution Width 16.3 % (11.6-14.8) H Platelet Count 167 K/UL (150-450) Mean Platelet Volume 8.1 FL (6.5-10.1) Neutrophils (%) (Auto) 76.0 % (45.0-75.0) H Lymphocytes (%) (Auto) 15.3 % (20.0-45.0) L Monocytes (%) (Auto) 7.6 % (1.0-10.0) Eosinophils (%) (Auto) 0.8 % (0.0-3.0) Basophils (%) (Auto) 0.3 % (0.0-2.0) Sodium Level 142 MMOL/L (136-145) Potassium Level 3.8 MMOL/L (3.5-5.1) Chloride Level 103 MMOL/L (98-107) Carbon Dioxide Level 34 MMOL/L (21-32) H Anion Gap 5 mmol/L (5-15) Blood Urea Nitrogen 46 mg/dL (7-18) H Creatinine 3.5 MG/DL (0.55-1.30) H Estimat Glomerular Filtration Rate 16.9 mL/min (>60) Glucose Level 126 MG/DL (74-106) H Calcium Level 9.1 MG/DL (8.5-10.1) Phosphorus Level 3.2 MG/DL (2.5-4.9) Magnesium Level 2.4 MG/DL (1.8-2.4) Total Bilirubin 0.4 MG/DL (0.2-1.0) Aspartate Amino Transf (AST/SGOT) 21 U/L (15-37) Alanine Aminotransferase (ALT/SGPT) 18 U/L (12-78) Alkaline Phosphatase 96 U/L (46-116) C-Reactive Protein, Quantitative 3.4 mg/dL (0.00-0.90) H Pro-B-Type Natriuretic Peptide 35962 pg/mL (0-125) H Total Protein 5.5 G/DL (6.4-8.2) L Albumin 2.1 G/DL (3.4-5.0) L Globulin 3.4 g/dL Albumin/Globulin Ratio 0.6 (1.0-2.7) L Current Medications Medications (Trade) Dose Ordered Sig/Cammy Route PRN Reason Start Time Stop Time Status Last Admin Dose Admin Acetaminophen (Tylenol) 650 mg Q6H PRN NG Pain 3-5 11/03/19 11:15 12/02/19 11:14 Amlodipine Besylate (Norvasc) 5 mg BID NG 11/03/19 18:00 11/25/19 08:59 11/06/19 09:46 Atorvastatin Calcium (Lipitor) 10 mg BEDTIME NG 11/03/19 21:00 01/21/20 20:59 11/05/19 20:27 Chlorhexidine Gluconate (Yi-Hex 2%) 1 applic DAILY@1999 TOPIC 11/03/19 20:00 01/31/20 19:59 11/05/19 20:26 Dextrose (Dextrose 50%) 25 ml Q30M PRN IV Hypoglycemia 11/03/19 11:15 01/20/20 21:44 Dextrose (Dextrose 50%) 50 ml Q30M PRN IV Hypoglycemia 11/03/19 11:15 01/20/20 21:44 Docusate Sodium (Colace) 100 mg THREE TIMES A DAY NG 11/03/19 13:00 12/02/19 17:59 11/06/19 13:17 Epoetin William (Epoetin William(ESRD on dialysis)) 10,000 unit FRI-FRI-FRI SUBQ 11/03/19 21:00 02/01/20 20:59 11/05/19 20:27 Haloperidol (Haldol) 5 mg Q12H PRN NG Agitation 11/03/19 11:15 12/17/19 11:14 Haloperidol Lactate (Haldol) 5 mg Q6H PRN IM Agitation 11/03/19 11:15 12/10/19 11:14 Hydralazine HCl (Apresoline) 10 mg Q4H PRN IV For High Blood Pressure 11/03/19 11:15 01/24/20 11:14 Insulin Aspart (NovoLOG) Q6HR SUBQ 11/06/19 06:00 01/31/20 06:29 Lactulose (Cephulac) 10 gm BID NG 11/03/19 18:00 12/01/19 08:59 11/06/19 09:46 Levothyroxine Sodium (Synthroid) 75 mcg DAILY@0630 ORAL 11/04/19 06:30 12/04/19 06:29 11/06/19 05:38 Pantoprazole (Protonix) 40 mg EVERY 12 HOURS IVP 11/03/19 21:00 11/22/19 08:59 11/06/19 09:45 Polyethylene Glycol (Miralax) 17 gm BEDTIME NG 11/03/19 21:00 12/01/19 20:59 11/05/19 20:27 Sennosides (Senokot) 8.6 mg HSPRN PRN NG Constipation 11/03/19 16:15 12/02/19 16:14 Sevelamer Carbonate (Renvela) 1,600 mg THREE TIMES A DAY NG 11/03/19 13:00 01/21/20 17:59 11/06/19 13:17 Trinity Pan M.D. Nov 06, 2019 14:05
--- NOTE | 2019-11-06 18:22 | Surgery Progress Note ---
Surgery Progress Note Subjective Procedure Performed Right femoral temporary hemodialysis catheter insertion Additional Comments no acute events Objective Last 24 Hour Vital Signs Date Time Temp Pulse Resp B/P (MAP) Pulse Ox O2 Delivery O2 Flow Rate FiO2 11/06/19 16:00 3.0 11/06/19 16:00 98.2 78 16 144/51 (82) 100 11/06/19 15:56 Nasal Cannula 4.0 Bi-pap 12.0 11/06/19 15:26 78 11/06/19 12:00 Nasal Cannula 3.0 Bi-pap 12.0 11/06/19 12:00 74 11/06/19 12:00 3.0 11/06/19 12:00 98.2 77 19 148/56 (86) 100 11/06/19 09:46 79 155/70 11/06/19 08:00 Nasal Cannula 3.0 Bi-pap 12.0 11/06/19 08:00 97.9 80 18 155/70 (98) 99 11/06/19 08:00 3.0 11/06/19 08:00 79 11/06/19 07:30 98 Nasal Cannula 3.0 32 11/06/19 05:17 76 18 98 30 11/06/19 04:00 30 11/06/19 04:00 Bi-pap 12.0 Bi-pap 12.0 11/06/19 04:00 98.2 73 19 156/66 (96) 99 11/06/19 03:57 76 11/06/19 03:10 74 19 99 30 11/06/19 01:18 72 20 99 30 11/06/19 00:00 68 11/06/19 00:00 68 11/06/19 00:00 98.4 66 16 140/53 (82) 99 11/06/19 00:00 Bi-pap 12.0 Bi-pap 12.0 11/06/19 00:00 30 11/05/19 23:25 68 16 99 30 11/05/19 21:30 30 11/05/19 21:23 66 16 98 30 11/05/19 20:00 98.4 73 20 138/50 (79) 100 11/05/19 20:00 4.0 11/05/19 20:00 75 11/05/19 20:00 Nasal Cannula 4.0 Nasal Cannula 4.0 11/05/19 19:11 98 Nasal Cannula 3.0 32 I&O Intake and Output 11/05/19 11/06/19 19:00 07:00 Intake Total 290 ml 180 ml Balance 290 ml 180 ml Free Water 90 ml Tube Feeding 290 ml 90 ml # Voids 1 3 # Bowel Movements 1 2 Dressing: other Wound: other Cardiovascular: RSR Respiratory: decreased breath sounds Abdomen: soft, non-tender, present bowel sounds Extremities: no cyanosis Laboratory Tests Test 11/05/19 20:26 11/06/19 03:10 11/06/19 05:37 POC Whole Blood Glucose Pending 117 MG/DL (74-106) H White Blood Count 8.4 K/UL (4.8-10.8) Red Blood Count 3.01 M/UL (4.70-6.10) L Hemoglobin 9.2 G/DL (14.2-18.0) L Hematocrit 30.3 % (42.0-52.0) L Mean Corpuscular Volume 101 FL (80-99) H Mean Corpuscular Hemoglobin 30.4 PG (27.0-31.0) Mean Corpuscular Hemoglobin Concent 30.3 G/DL (32.0-36.0) L Red Cell Distribution Width 16.3 % (11.6-14.8) H Platelet Count 167 K/UL (150-450) Mean Platelet Volume 8.1 FL (6.5-10.1) Neutrophils (%) (Auto) 76.0 % (45.0-75.0) H Lymphocytes (%) (Auto) 15.3 % (20.0-45.0) L Monocytes (%) (Auto) 7.6 % (1.0-10.0) Eosinophils (%) (Auto) 0.8 % (0.0-3.0) Basophils (%) (Auto) 0.3 % (0.0-2.0) Sodium Level 142 MMOL/L (136-145) Potassium Level 3.8 MMOL/L (3.5-5.1) Chloride Level 103 MMOL/L (98-107) Carbon Dioxide Level 34 MMOL/L (21-32) H Anion Gap 5 mmol/L (5-15) Blood Urea Nitrogen 46 mg/dL (7-18) H Creatinine 3.5 MG/DL (0.55-1.30) H Estimat Glomerular Filtration Rate 16.9 mL/min (>60) Glucose Level 126 MG/DL (74-106) H Calcium Level 9.1 MG/DL (8.5-10.1) Phosphorus Level 3.2 MG/DL (2.5-4.9) Magnesium Level 2.4 MG/DL (1.8-2.4) Total Bilirubin 0.4 MG/DL (0.2-1.0) Aspartate Amino Transf (AST/SGOT) 21 U/L (15-37) Alanine Aminotransferase (ALT/SGPT) 18 U/L (12-78) Alkaline Phosphatase 96 U/L (46-116) C-Reactive Protein, Quantitative 3.4 mg/dL (0.00-0.90) H Pro-B-Type Natriuretic Peptide 73263 pg/mL (0-125) H Total Protein 5.5 G/DL (6.4-8.2) L Albumin 2.1 G/DL (3.4-5.0) L Globulin 3.4 g/dL Albumin/Globulin Ratio 0.6 (1.0-2.7) L Plan Problems: (1) Hypercarbia (2) Pleural effusion (3) Chronic renal failure (4) Anemia (5) CHF (congestive heart failure) (6) Bacteremia (7) Cellulitis Assessment & Plan: penile swelling improved no active bleeding reyes okay will monitor (8) Hypoglycemia (9) Hyponatremia (10) ATN (acute tubular necrosis) (11) Metabolic acidosis Assessment & Plan: DYSPHAGIA RISK FACTORS INCLUDE: RESPIRATORY WELL MULTIPLE MEDICAL COMPLICATIONS, SHORTNESS OF BREATH, WORK OF BREATHING, DECREASED MENTATION, HX OF SUBOPTIMAL P.O. INTAKE, LETHARGY (DIFFICULTY SUSTAINING WAKEFULNESS) , CLINICAL HISTORY: AMS CURRENT CXR: Indication: Shortness of breath Technique: One view of the chest Comparison: 10/31/2019 Findings: Interim placement of nasogastric tube, tip projected at the level of the gastric body. This was also demonstrated on 11/01/2019 abdominal radiograph. Bilateral hazy opacity appears similar to or perhaps slightly increased from the prior study. Generalized mild interstitial prominence persists. Impression: Stable slightly increased bilateral pleural effusions Otherwise little manager of change 3 days INITIAL IMPRESSION: PATIENT POSITIONED AT 90 DEGREES UPRIGHT IN BED AND PRESENTED WITH P.O. TRIALS OF ICE CHIPS, ONE AT A TIME. LINGUAL SIZE PRESENTS ENLARGED. PATIENT PERSISTENTLY MOUTH BREATHING. WHEN PRESENTED WITH ONE ICE CHIP HE MANIPULATED IT, ALLOWED IT TO MELT ON HIS TONGUE AND AFTER A MODERATE DELAY, HE SWALLOWED. RR CHANGES FROM 18 BREATHS PER MINUTE TO 25 BREATHS PER MINUTE ALONG WITH WORK OF BREATHING. WHEN ASKED TO SAY "AH" POST SWALLOW, PATIENTS VOCAL QUALITY WAS WET/GURGLY. HYOLARYNGEAL EXCURSION PRESENTED MODERATELY DECREASED. PATIENT ESSENTIALLY NON/VERBAL THIS AFTERNOON. HIGH ASPIRATION RISK. HIS RISK FOR CONSISTENT/STABLE/SUFFICIENT P.O. INTAKE TO SUPPORT NUTRITION/HYDRATION NEEDS. RECOMMENDATIONS: 1. CONTINUE NON/ORAL FEEDING MANAGEMENT PRIMARY SOURCE OF NUTRITION/ HYDRATION/MEDICATION 2. NPO STATUS 3. RE/ORDER SWALLOW EVALUATION IF/WHEN PATIENTS MEDICAL STATUS STABILIZES. (12) Pneumonia (13) Cellulitis of foot Assessment & Plan: Pt presented on admission with Bilat TMA. Pressure injuries both heels. Stable dry necrosis note to Plantar /lateral L TMA. L Heel is boggy with non- Blanchable erythema. . R Heel Boggy with Non-Blanchable erythema.Haemosiderin with Xerosis skin noted to R and L lower ext. Darker skin tone without erythema , induration or fluctuance Medial L Malleolus. Darker skin tone without erythema or induration noted to sacrum. Tx.Plan: Apply Moisture Barrier Paste to Sacrum. Cover with Optifoam drsg.Change every 3 days and prn. Apply Betadine to eschar plantar/lateral L TMA . Cover with Optifoam drsg. Change every 3 days and prn. Apply Cavilon Skin Barrier to both heels and Malleoli. Cover each site with Optifoam drsg. Change every 7days and prn. Reposition at least every 2hours or as tolerated. Off load heels with pillow.Hx prior amputation prior MRI and plain films reviewed wounds stable and local care being provided no abscess noted cont with dressings elevate heels with pillow turn q2h off load pressure air mattress will follow with recs thank you (14) Osteomyelitis (15) History of hypertension (16) Renal failure (ARF), acute on chronic (17) Acute encephalopathy (18) Diabetes mellitus (19) Hypertension (20) Cholelithiasis Assessment & Plan: US reviewed exam benign asymptomatic cholelithiasis alk phos mild elevated lfts improved trend labs no acute surgical intervention planned Liver: Liver measures 14.8 cm. No intrahepatic bile duct dilation. Gallbladder: Small stone in the gallbladder. No significant gallbladder wall thickening or pericholecystic fluid. Negative sonographic Bianchi's sign. Common bile duct: Normal common bile duct measuring 4.5 mm. No stones. No dilation. Pancreas: Pancreas is not visualized due to overlying bowel gas. Kidneys: Right kidney measures 9.1 cm in length. No hydronephrosis or stone. Left kidney not visualized due to patient's body habitus. Spleen: Spleen measures 9.4 cm. No focal lesion. Aorta: Visualized portions of the aorta are grossly unremarkable. The mid and distal portions are obscured by bowel gas. Inferior vena cava: Unremarkable. Free fluid: No ascites. Tubes, lines and devices: Reyes catheter in a decompressed bladder. IMPRESSION: Small stone in the gallbladder. No significant gallbladder wall thickening or pericholecystic fluid. Negative sonographic Bianchi's sign. Mariusz Diehl Nov 06, 2019 18:22
[2019-11-06] MEDS: Dyna-Hex 2% Top Sol 2oz TOPIC SCH (20:00)
[2019-11-06] MEDS: Miralax 17gm pkt NG SCH (21:00)
--- NOTE | 2019-11-06 21:51 | General Progress Note ---
Assessment/Plan Assessment/Plan: Assessment/Plan Problem List: (1) Hypertension ICD Codes: I10 - Essential (primary) hypertension SNOMED: 40255070 (2) Diabetes mellitus ICD Codes: E11.9 - Type 2 diabetes mellitus without complications SNOMED: 31205487 (3) Anemia ICD Codes: D64.9 - Anemia, unspecified SNOMED: 343750306 (4) Cholelithiasis ICD Codes: K80.20 - Calculus of gallbladder without cholecystitis without obstruction SNOMED: 864618735 (5) CHF (congestive heart failure) ICD Codes: I50.9 - Heart failure, unspecified SNOMED: 10489567 Assessment/Plan: patient on Xerallto stool ob positive but no overt GIB patient on BIPAP and not stable for GI procedures at this time stable H&H fu cbc repeat stool ob ppi bid GI procedures when patient is more stable bowel regimen start low dose NGTF HD per nephrology management of hyponatremia per nephrolo Subjective Allergies: Coded Allergies: PENICILLINS (Verified Allergy, Unknown, 10/25/19) tolerated Ceftriaxone Subjective Above noted awake, non communicative 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 Objective Last 24 Hour Vital Signs Date Time Temp Pulse Resp B/P (MAP) Pulse Ox O2 Delivery O2 Flow Rate FiO2 11/06/19 19:53 98.2 77 16 147/58 (87) 100 11/06/19 19:38 100 Nasal Cannula 3.0 32 11/06/19 18:23 78 144/51 11/06/19 16:00 3.0 11/06/19 16:00 98.2 78 16 144/51 (82) 100 11/06/19 15:56 Nasal Cannula 4.0 Bi-pap 12.0 11/06/19 15:26 78 11/06/19 12:00 Nasal Cannula 3.0 Bi-pap 12.0 11/06/19 12:00 74 11/06/19 12:00 3.0 11/06/19 12:00 98.2 77 19 148/56 (86) 100 11/06/19 09:46 79 155/70 11/06/19 08:00 Nasal Cannula 3.0 Bi-pap 12.0 11/06/19 08:00 97.9 80 18 155/70 (98) 99 11/06/19 08:00 3.0 11/06/19 08:00 79 8/15/20 07:30 98 Nasal Cannula 3.0 32 11/06/19 05:17 76 18 98 30 11/06/19 04:00 30 11/06/19 04:00 Bi-pap 12.0 Bi-pap 12.0 11/06/19 04:00 98.2 73 19 156/66 (96) 99 11/06/19 03:57 76 11/06/19 03:10 74 19 99 30 11/06/19 01:18 72 20 99 30 11/06/19 00:00 68 11/06/19 00:00 68 11/06/19 00:00 98.4 66 16 140/53 (82) 99 11/06/19 00:00 Bi-pap 12.0 Bi-pap 12.0 11/06/19 00:00 30 11/05/19 23:25 68 16 99 30 Intake and Output 11/05/19 11/06/19 19:00 07:00 Intake Total 290 ml 180 ml Balance 290 ml 180 ml Free Water 90 ml Tube Feeding 290 ml 90 ml # Voids 1 3 # Bowel Movements 1 2 Laboratory Tests 11/06/19 03:10: White Blood Count 8.4, Red Blood Count 3.01L, Hemoglobin 9.2L, Hematocrit 30.3L , Mean Corpuscular Volume 101H, Mean Corpuscular Hemoglobin 30.4, Mean Corpuscular Hemoglobin Concent 30.3L, Red Cell Distribution Width 16.3H, Platelet Count 167, Mean Platelet Volume 8.1, Neutrophils (%) (Auto) 76.0H, Lymphocytes (%) (Auto) 15.3L, Monocytes (%) (Auto) 7.6, Eosinophils (%) (Auto) 0.8, Basophils (%) (Auto) 0.3, Sodium Level 142, Potassium Level 3.8, Chloride Level 103, Carbon Dioxide Level 34H, Anion Gap 5, Blood Urea Nitrogen 46H, Creatinine 3.5H, Estimat Glomerular Filtration Rate 16.9, Glucose Level 126H, Calcium Level 9.1, Phosphorus Level 3.2, Magnesium Level 2.4, Total Bilirubin 0.4, Aspartate Amino Transf (AST/SGOT) 21, Alanine Aminotransferase (ALT/SGPT) 18, Alkaline Phosphatase 96, C-Reactive Protein, Quantitative 3.4H, Pro-B-Type Natriuretic Peptide 87235R, Total Protein 5.5L, Albumin 2.1L, Globulin 3.4, Albumin/Globulin Ratio 0.6L 11/06/19 05:37: POC Whole Blood Glucose 117H 11/06/19 18:27: POC Whole Blood Glucose 149H Height (Feet): 5 Height (Inches): 8.00 Weight (Pounds): 209 Objective Debilitated L man NCAT, (+) NGT supple CTA RR Abd soft, obese (+) edema OBS Jaylen Rowe MD Nov 06, 2019 21:51
--- NOTE | 2019-11-07 00:07 | Psych Consult Progress Note ---
Psychiatry Progress Note Psychiatry Progress Note Subjective the pt has episodes o agitations disoriented Medications Current Medications Medications (Trade) Dose Ordered Sig/Cammy Route PRN Reason Start Time Stop Time Status Last Admin Dose Admin Acetaminophen (Tylenol) 650 mg Q6H PRN NG Pain 3-5 11/03/19 11:15 12/02/19 11:14 Amlodipine Besylate (Norvasc) 5 mg BID NG 11/03/19 18:00 11/25/19 08:59 11/06/19 18:23 Atorvastatin Calcium (Lipitor) 10 mg BEDTIME NG 11/03/19 21:00 01/21/20 20:59 11/06/19 21:17 Chlorhexidine Gluconate (Yi-Hex 2%) 1 applic DAILY@1999 TOPIC 11/03/19 20:00 01/31/20 19:59 11/06/19 20:00 Dextrose (Dextrose 50%) 25 ml Q30M PRN IV Hypoglycemia 11/03/19 11:15 01/20/20 21:44 Dextrose (Dextrose 50%) 50 ml Q30M PRN IV Hypoglycemia 11/03/19 11:15 01/20/20 21:44 Docusate Sodium (Colace) 100 mg THREE TIMES A DAY NG 11/03/19 13:00 12/02/19 17:59 11/06/19 18:22 Epoetin William (Epoetin William(ESRD on dialysis)) 10,000 unit FRI-FRI-FRI SUBQ 11/03/19 21:00 02/01/20 20:59 11/05/19 20:27 Haloperidol (Haldol) 5 mg Q12H PRN NG Agitation 11/03/19 11:15 12/17/19 11:14 Haloperidol Lactate (Haldol) 5 mg Q6H PRN IM Agitation 11/03/19 11:15 12/10/19 11:14 Hydralazine HCl (Apresoline) 10 mg Q4H PRN IV For High Blood Pressure 11/03/19 11:15 01/24/20 11:14 Insulin Aspart (NovoLOG) Q6HR SUBQ 11/06/19 06:00 01/31/20 06:29 11/06/19 18:32 Lactulose (Cephulac) 10 gm BID NG 11/03/19 18:00 12/01/19 08:59 11/06/19 18:22 Levothyroxine Sodium (Synthroid) 75 mcg DAILY@0630 ORAL 11/04/19 06:30 12/04/19 06:29 11/06/19 05:38 Pantoprazole (Protonix) 40 mg EVERY 12 HOURS IVP 11/03/19 21:00 11/22/19 08:59 11/06/19 21:17 Polyethylene Glycol (Miralax) 17 gm BEDTIME NG 11/03/19 21:00 12/01/19 20:59 11/05/19 20:27 Sennosides (Senokot) 8.6 mg HSPRN PRN NG Constipation 11/03/19 16:15 12/02/19 16:14 Sevelamer Carbonate (Renvela) 1,600 mg THREE TIMES A DAY NG 11/03/19 13:00 01/21/20 17:59 11/06/19 18:23 Neurological/Psychiatric: Denies: no symptoms, anxiety, depressed, emotional problems, headache, numbness, paresthesia, pre-existing deficit, seizure, tingling, tremors, weakness, other Allergies: Coded Allergies: PENICILLINS (Verified Allergy, Unknown, 10/25/19) tolerated Ceftriaxone Objective Data Height (Feet): 5 Height (Inches): 8.00 Weight (Pounds): 209 General Appearance: no apparent distress Appearance: no abnormalities noted Behavior Mannerisms: good eye contact Mental Status Exam - Affect: blunted Mental Status Exam - Mood: anxious, agitated Mental Status Exam - Thought P: tangential, confusion Mental Status Exam - Thought C: delusions (specify) Mental Status Exam - Suicidal: not present Additional Comments: awake, confused, and disoriented. Mood is agitated. Affect is flat. Thought process, there is a paucity of thought content. Thought content, no suicidal or homicidal ideation. Cognition is impaired. Insight and judgment impaired. Dada Finch MD Nov 07, 2019 00:07
--- NOTE | 2019-11-07 01:06 | Cardiology Progress Note ---
Subjective DATE OF SERVICE: Nov 06, 2019 Off anti-coagulation in anticipation of dialysis catheter placement. Objective Last 24 Hour Vital Signs Date Time Temp Pulse Resp B/P (MAP) Pulse Ox O2 Delivery O2 Flow Rate FiO2 11/06/19 23:47 69 11/06/19 23:44 98.2 79 16 153/62 (92) 100 11/06/19 22:16 75 20 100 30 11/06/19 20:00 4.0 11/06/19 20:00 76 11/06/19 20:00 Nasal Cannula 4.0 Nasal Cannula 4.0 11/06/19 19:53 98.2 77 16 147/58 (87) 100 11/06/19 19:38 100 Nasal Cannula 3.0 32 11/06/19 18:23 78 144/51 11/06/19 16:00 3.0 11/06/19 16:00 98.2 78 16 144/51 (82) 100 11/06/19 15:56 Nasal Cannula 4.0 Bi-pap 12.0 11/06/19 15:26 78 11/06/19 12:00 Nasal Cannula 3.0 Bi-pap 12.0 11/06/19 12:00 74 11/06/19 12:00 3.0 11/06/19 12:00 98.2 77 19 148/56 (86) 100 11/06/19 09:46 79 155/70 11/06/19 08:00 Nasal Cannula 3.0 Bi-pap 12.0 11/06/19 08:00 97.9 80 18 155/70 (98) 99 11/06/19 08:00 3.0 11/06/19 08:00 79 11/06/19 07:30 98 Nasal Cannula 3.0 32 11/06/19 05:17 76 18 98 30 11/06/19 04:00 30 11/06/19 04:00 Bi-pap 12.0 Bi-pap 12.0 11/06/19 04:00 98.2 73 19 156/66 (96) 99 11/06/19 03:57 76 11/06/19 03:10 74 19 99 30 11/06/19 01:18 72 20 99 30 RHYTHM: NSR, ST LUNGS: bilateral rhonchi CARDIAC: normal rate, regular rhythm, normal S1 and S2 ABDOMEN: normal bowel sounds, non tender, soft, no organomegaly, no mass EXTREMITIES: No edema Laboratory Tests Test 11/06/19 03:10 11/06/19 05:37 11/06/19 18:27 White Blood Count 8.4 K/UL (4.8-10.8) Red Blood Count 3.01 M/UL (4.70-6.10) L Hemoglobin 9.2 G/DL (14.2-18.0) L Hematocrit 30.3 % (42.0-52.0) L Mean Corpuscular Volume 101 FL (80-99) H Mean Corpuscular Hemoglobin 30.4 PG (27.0-31.0) Mean Corpuscular Hemoglobin Concent 30.3 G/DL (32.0-36.0) L Red Cell Distribution Width 16.3 % (11.6-14.8) H Platelet Count 167 K/UL (150-450) Mean Platelet Volume 8.1 FL (6.5-10.1) Neutrophils (%) (Auto) 76.0 % (45.0-75.0) H Lymphocytes (%) (Auto) 15.3 % (20.0-45.0) L Monocytes (%) (Auto) 7.6 % (1.0-10.0) Eosinophils (%) (Auto) 0.8 % (0.0-3.0) Basophils (%) (Auto) 0.3 % (0.0-2.0) Sodium Level 142 MMOL/L (136-145) Potassium Level 3.8 MMOL/L (3.5-5.1) Chloride Level 103 MMOL/L (98-107) Carbon Dioxide Level 34 MMOL/L (21-32) H Anion Gap 5 mmol/L (5-15) Blood Urea Nitrogen 46 mg/dL (7-18) H Creatinine 3.5 MG/DL (0.55-1.30) H Estimat Glomerular Filtration Rate 16.9 mL/min (>60) Glucose Level 126 MG/DL (74-106) H Calcium Level 9.1 MG/DL (8.5-10.1) Phosphorus Level 3.2 MG/DL (2.5-4.9) Magnesium Level 2.4 MG/DL (1.8-2.4) Total Bilirubin 0.4 MG/DL (0.2-1.0) Aspartate Amino Transf (AST/SGOT) 21 U/L (15-37) Alanine Aminotransferase (ALT/SGPT) 18 U/L (12-78) Alkaline Phosphatase 96 U/L (46-116) C-Reactive Protein, Quantitative 3.4 mg/dL (0.00-0.90) H Pro-B-Type Natriuretic Peptide 05683 pg/mL (0-125) H Total Protein 5.5 G/DL (6.4-8.2) L Albumin 2.1 G/DL (3.4-5.0) L Globulin 3.4 g/dL Albumin/Globulin Ratio 0.6 (1.0-2.7) L POC Whole Blood Glucose 117 MG/DL (74-106) H 149 MG/DL (74-106) H Assessment/Plan Assessment/Plan Hypertension/HHD - recovering hypertensive urgency Sinus tachycardia Renal failure Resolved lactic acidosis Respiratory failure Ac/chr diastolic CHF CRITICAL & GUARDED Titrating antiHTN regimen Trend BNP; monitor volume status Respiratory hygiene HD/UF following access placement Hold anti-coagulation for line placement John Coffman MD Nov 07, 2019 01:06
[2019-11-07 04:00] VITALS: BP 156/51
[2019-11-07] MEDS: NovoLOG Insulin Flexpen SUBQ SCH ×4 (05:20→18:18)
[2019-11-07 06:35] LABS: ALANINE AMINOTRANSFERASE 17 U/L (12-78); ALBUMIN 2.2 G/DL (3.4-5.0); ALBUMIN/GLOBULIN RATIO 0.6 (1.0-2.7); ALKALINE PHOSPHATASE 104 U/L (46-116); ANION GAP 3 mmol/L (5-15); ASPARTATE AMINO TRANSFERASE 21 U/L (15-37); BILIRUBIN,TOTAL 0.5 MG/DL (0.2-1.0); BLOOD UREA NITROGEN 54 mg/dL (7-18); CALCIUM 9.1 MG/DL (8.5-10.1); CARBON DIOXIDE 36 MMOL/L (21-32); CHLORIDE 103 MMOL/L (98-107); CREATININE 3.8 MG/DL (0.55-1.30); PHOSPHORUS 3.3 MG/DL (2.5-4.9); POTASSIUM 4.2 MMOL/L (3.5-5.1); SODIUM 142 MMOL/L (136-145)
[2019-11-07 06:39] LABS: BASOPHILS % (AUTO) 0.3 % (0.0-2.0); EOSINOPHILS % (AUTO) 0.6 % (0.0-3.0); HEMATOCRIT 31.4 % (42.0-52.0); HEMOGLOBIN 9.4 G/DL (14.2-18.0); LYMPHOCYTES % (AUTO) 9.7 % (20.0-45.0); MEAN CORPUSCULAR VOLUME 102 FL (80-99); MONOCYTES % (AUTO) 6.6 % (1.0-10.0); NEUTROPHILS % (AUTO) 82.9 % (45.0-75.0); PLATELET COUNT 160 K/UL (150-450); RED BLOOD COUNT 3.07 M/UL (4.70-6.10); RED CELL DISTRIBUTION WIDTH 15.9 % (11.6-14.8); WHITE BLOOD COUNT 10.9 K/UL (4.8-10.8)
--- NOTE | 2019-11-07 07:29 | General Progress Note ---
Assessment/Plan Assessment/Plan: Covering Dr. Chang ASSESSMENT AND RECOMMENDATIONS: # Anemia of chronic disease due to underlying chronic medical issues, multifactorial --> Anemia w/u has been reviewed. --> no evidence of hemolysis is noted, peripheral smear has been reviewed --> hgb goal is >7, transfuse as needed --> currently remains stable, occult blood negative --> hgb 8.4->8.6->8.3->8->8.2->9.2-->9.2 --> some blood loss due to hematuria after inflated reyes pulled 10/27 am --> EPOGEN Started # Acute kidney injury r/o potential reversible component --> reviewed meds, those that are renally cleared removed --> as per renal recs, appreciated --> cr 3.5-->4.2 --> Hd started and dw renal # Hypertension, essential --> sbp goal is <140, consider anti-htn as needed --> currently started on hyralazine 25mg po q6h prn sbp >140 # CHF - hx of CHf --> diuresis with lasix as needed --> cardiology recs appreciated prior adm #. Leukocytosis with underlying infectionv stress reaction HISTORY --> per id and better --> for infection, ABX ctx/vanc-->off #. Bilateral lower extremity amputee, metatarsal several years ago #. Hyperkalemia -- kayxelate as needed #. Dvt ppx scds --> apixaban->off for catheter placement 11/07 The time the note was entered does not necessarily correspond to the time the patient was seen. GREATLY APPRECIATE CONSULTATION. Subjective Endocrine: Denies: no symptoms, excessive sweating, flushing, intolerance to cold, intolerance to heat, increased hunger, increased thirst, increased urine, unexplained weight gain, unexplained weight loss, other Allergies: Coded Allergies: PENICILLINS (Verified Allergy, Unknown, 10/25/19) tolerated Ceftriaxone All Systems: reviewed and negative except above Subjective 10/[address] Chang, to do best to avoid haldol, continue restraints, jag rn, on nc, feeling better 10/25 still with some agitation overnight, meds reviewed, jag rn, haldol given in AM 10/26 is on 2l nc, also is on restraints, no night sweats, no bleeding 10/27 reyes catheter has been removed by patient, and resinserted, bed sheets, with bright red blood on exam 10/28 labs are noted, no bleeding, cr is worse, seen by renal, remains edematous 11/04 no major changes, hd as per renal, recs are noted, labs reviewed, pending neuro eval 11/05 is on bipap with restraints, no major changes, no bleeding, labs noted 11/06 remains agitated, is off eliquis for catheter placement for friday Objective Last 24 Hour Vital Signs Date Time Temp Pulse Resp B/P (MAP) Pulse Ox O2 Delivery O2 Flow Rate FiO2 11/07/19 04:00 69 11/07/19 04:00 Nasal Cannula 4.0 Nasal Cannula 4.0 11/07/19 04:00 98.2 79 16 156/51 (86) 100 11/07/19 04:00 4.0 11/07/19 02:34 81 20 98 30 11/07/19 01:04 80 19 98 30 11/07/19 00:00 Nasal Cannula 4.0 Nasal Cannula 4.0 11/06/19 23:47 69 11/06/19 23:44 98.2 79 16 153/62 (92) 100 11/06/19 22:16 75 20 100 30 11/06/19 20:00 4.0 11/06/19 20:00 76 11/06/19 20:00 Nasal Cannula 4.0 Nasal Cannula 4.0 11/06/19 19:53 98.2 77 16 147/58 (87) 100 11/06/19 19:38 100 Nasal Cannula 3.0 32 11/06/19 18:23 78 144/51 11/06/19 16:00 3.0 11/06/19 16:00 98.2 78 16 144/51 (82) 100 11/06/19 15:56 Nasal Cannula 4.0 Bi-pap 12.0 11/06/19 15:26 78 11/06/19 12:00 Nasal Cannula 3.0 Bi-pap 12.0 11/06/19 12:00 74 11/06/19 12:00 3.0 11/06/19 12:00 98.2 77 19 148/56 (86) 100 11/06/19 09:46 79 155/70 11/06/19 08:00 Nasal Cannula 3.0 Bi-pap 12.0 11/06/19 08:00 97.9 80 18 155/70 (98) 99 11/06/19 08:00 3.0 11/06/19 08:00 79 11/06/19 07:30 98 Nasal Cannula 3.0 32 Intake and Output 11/06/19 11/07/19 19:00 07:00 Intake Total 360 ml 400 ml Balance 360 ml 400 ml Free Water 250 ml Tube Feeding 110 ml 400 ml # Voids 3 2 Laboratory Tests 11/06/19 18:27: POC Whole Blood Glucose 149H 11/07/19 00:37: POC Whole Blood Glucose [Pending] 11/07/19 03:40: White Blood Count 10.9H, Red Blood Count 3.07L, Hemoglobin 9.4L, Hematocrit 31.4L, Mean Corpuscular Volume 102H, Mean Corpuscular Hemoglobin 30.5, Mean Corpuscular Hemoglobin Concent 29.8L, Red Cell Distribution Width 15.9H, Platelet Count 160, Mean Platelet Volume 7.3, Neutrophils (%) (Auto) 82.9H, Lymphocytes (%) (Auto) 9.7L, Monocytes (%) (Auto) 6.6, Eosinophils (%) (Auto) 0.6, Basophils (%) (Auto) 0.3, Sodium Level 142, Potassium Level 4.2, Chloride Level 103, Carbon Dioxide Level 36H, Anion Gap 3L, Blood Urea Nitrogen 54H, Creatinine 3.8H, Estimat Glomerular Filtration Rate 15.4, Glucose Level 142H, Calcium Level 9.1, Phosphorus Level 3.3, Magnesium Level 2.6H, Total Bilirubin 0.5, Aspartate Amino Transf (AST/SGOT) 21, Alanine Aminotransferase (ALT/SGPT) 17, Alkaline Phosphatase 104, C-Reactive Protein, Quantitative 4.7H, Total Protein 5.8L, Albumin 2.2L, Globulin 3.6, Albumin/Globulin Ratio 0.6L 11/07/19 05:03: POC Whole Blood Glucose [Pending] Height (Feet): 5 Height (Inches): 8.00 Weight (Pounds): 211 Objective GENERAL: Not in acute distress. PULMONARY: Decreased breath sounds. ++ bipap +ngt CARDIOVASCULAR: Regular rate. No S3 or S4. ABDOMEN: Soft, nontender, nondistended. EXTREMITIES: 1+ edema. No cyanosis, swelling, or edema. 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 Melvin Rizzo MD Nov 07, 2019 07:29
[2019-11-07 08:00] VITALS: BP 150/68
[2019-11-07] MEDS: Lactulose 10gm/15ml UDC NG SCH ×2 (08:28→18:12)
[2019-11-07] MEDS: Docusate 100mg/10ml Liq NG SCH ×3 (08:28→18:12)
[2019-11-07] MEDS: Renvela 800mg Pkt NG SCH ×3 (08:28→18:12)
[2019-11-07] MEDS: Pantoprazole Inj IVP SCH ×2 (08:29→20:31)
--- NOTE | 2019-11-07 10:12 | Pulmonology Progress Note ---
Reema Hanna PILOT SUBMERSIBLE 11/07/19 1012: Subjective ROS Limited/Unobtainable: No Allergies: Coded Allergies: PENICILLINS (Verified Allergy, Unknown, 10/25/19) tolerated Ceftriaxone All Systems: reviewed and negative except above Subjective more awake off Bipap ( used at HS) on O 2 via NC no resp distress CXR 11/02 not much change TF via NGT BSSE failed, rdcomemdnd no-noral feeding remains afebrile, no leukocytosis tunneled HD catheter placement was rescheduled for Friday due to Eliquis ( now on hold) Objective Last 24 Hour Vital Signs Date Time Temp Pulse Resp B/P (MAP) Pulse Ox O2 Delivery O2 Flow Rate FiO2 11/07/19 08:29 85 150/68 11/07/19 08:19 85 11/07/19 08:00 98.2 85 16 150/68 (95) 99 11/07/19 08:00 4.0 11/07/19 04:00 69 11/07/19 04:00 Nasal Cannula 4.0 Nasal Cannula 4.0 11/07/19 04:00 98.2 79 16 156/51 (86) 100 11/07/19 04:00 4.0 11/07/19 02:34 81 20 98 30 11/07/19 01:04 80 19 98 30 11/07/19 00:00 Nasal Cannula 4.0 Nasal Cannula 4.0 11/06/19 23:47 69 11/06/19 23:44 98.2 79 16 153/62 (92) 100 11/06/19 22:16 75 20 100 30 11/06/19 20:00 4.0 11/06/19 20:00 76 11/06/19 20:00 Nasal Cannula 4.0 Nasal Cannula 4.0 11/06/19 19:53 98.2 77 16 147/58 (87) 100 11/06/19 19:38 100 Nasal Cannula 3.0 32 11/06/19 18:23 78 144/51 11/06/19 16:00 3.0 11/06/19 16:00 98.2 78 16 144/51 (82) 100 11/06/19 15:56 Nasal Cannula 4.0 Bi-pap 12.0 11/06/19 15:26 78 11/06/19 12:00 Nasal Cannula 3.0 Bi-pap 12.0 11/06/19 12:00 74 11/06/19 12:00 3.0 11/06/19 12:00 98.2 77 19 148/56 (86) 100 Intake and Output 11/06/19 11/07/19 19:00 07:00 Intake Total 360 ml 400 ml Balance 360 ml 400 ml Free Water 250 ml Tube Feeding 110 ml 400 ml # Voids 3 2 Objective General Appearance: no apparent distress, German speaking confused male, Lines, tubes and drains: R femoral HEENT: normocephalic, atraumatic, anicteric, mucous membranes moist, O2 4 L via NC, NGT Respiratory/Chest: few scattered crackles, no exp wheezing, Cardiovascular/Chest: normal rate, regular rhythm Abdomen: normal bowel sounds, non tender, soft Extremities: partially amputated BL foot/metatarsal Skin Exam: warm/dry Neurologic: abnormal gait, not much responsive, Musculoskeletal: atrophy BLE Laboratory Tests 11/06/19 18:27: POC Whole Blood Glucose 149H 11/07/19 00:37: POC Whole Blood Glucose [Pending] 11/07/19 03:40: White Blood Count 10.9H, Red Blood Count 3.07L, Hemoglobin 9.4L, Hematocrit 31.4L, Mean Corpuscular Volume 102H, Mean Corpuscular Hemoglobin 30.5, Mean Corpuscular Hemoglobin Concent 29.8L, Red Cell Distribution Width 15.9H, Platelet Count 160, Mean Platelet Volume 7.3, Neutrophils (%) (Auto) 82.9H, Lymphocytes (%) (Auto) 9.7L, Monocytes (%) (Auto) 6.6, Eosinophils (%) (Auto) 0.6, Basophils (%) (Auto) 0.3, Sodium Level 142, Potassium Level 4.2, Chloride Level 103, Carbon Dioxide Level 36H, Anion Gap 3L, Blood Urea Nitrogen 54H, Creatinine 3.8H, Estimat Glomerular Filtration Rate 15.4, Glucose Level 142H, Calcium Level 9.1, Phosphorus Level 3.3, Magnesium Level 2.6H, Total Bilirubin 0.5, Aspartate Amino Transf (AST/SGOT) 21, Alanine Aminotransferase (ALT/SGPT) 17, Alkaline Phosphatase 104, C-Reactive Protein, Quantitative 4.7H, Total Protein 5.8L, Albumin 2.2L, Globulin 3.6, Albumin/Globulin Ratio 0.6L 11/07/19 05:03: POC Whole Blood Glucose [Pending] Current Medications Medications (Trade) Dose Ordered Sig/Cammy Route PRN Reason Start Time Stop Time Status Last Admin Dose Admin Acetaminophen (Tylenol) 650 mg Q6H PRN NG Pain 3-5 11/03/19 11:15 12/02/19 11:14 Amlodipine Besylate (Norvasc) 5 mg BID NG 11/03/19 18:00 11/25/19 08:59 11/07/19 08:29 Atorvastatin Calcium (Lipitor) 10 mg BEDTIME NG 11/03/19 21:00 01/21/20 20:59 11/06/19 21:17 Chlorhexidine Gluconate (Yi-Hex 2%) 1 applic DAILY@1999 TOPIC 11/03/19 20:00 01/31/20 19:59 11/06/19 20:00 Dextrose (Dextrose 50%) 25 ml Q30M PRN IV Hypoglycemia 11/03/19 11:15 01/20/20 21:44 Dextrose (Dextrose 50%) 50 ml Q30M PRN IV Hypoglycemia 11/03/19 11:15 01/20/20 21:44 Docusate Sodium (Colace) 100 mg THREE TIMES A DAY NG 11/03/19 13:00 12/02/19 17:59 11/07/19 08:28 Epoetin William (Epoetin William(ESRD on dialysis)) 10,000 unit FRI-FRI-FRI SUBQ 11/03/19 21:00 02/01/20 20:59 11/05/19 20:27 Haloperidol (Haldol) 5 mg Q12H PRN NG Agitation 11/03/19 11:15 12/17/19 11:14 Haloperidol Lactate (Haldol) 5 mg Q6H PRN IM Agitation 11/03/19 11:15 12/10/19 11:14 Hydralazine HCl (Apresoline) 10 mg Q4H PRN IV For High Blood Pressure 11/03/19 11:15 01/24/20 11:14 Insulin Aspart (NovoLOG) Q6HR SUBQ 11/06/19 06:00 01/31/20 06:29 11/07/19 05:20 Lactulose (Cephulac) 10 gm BID NG 11/03/19 18:00 12/01/19 08:59 11/07/19 08:28 Levothyroxine Sodium (Synthroid) 75 mcg DAILY@0630 ORAL 11/04/19 06:30 12/04/19 06:29 11/07/19 05:20 Pantoprazole (Protonix) 40 mg EVERY 12 HOURS IVP 11/03/19 21:00 11/22/19 08:59 11/07/19 08:29 Polyethylene Glycol (Miralax) 17 gm BEDTIME NG 11/03/19 21:00 12/01/19 20:59 11/05/19 20:27 Sennosides (Senokot) 8.6 mg HSPRN PRN NG Constipation 11/03/19 16:15 12/02/19 16:14 Sevelamer Carbonate (Renvela) 1,600 mg THREE TIMES A DAY NG 11/03/19 13:00 01/21/20 17:59 11/07/19 08:28 Assessment/Plan Assessment/Plan ASSESSMENT Acute hypoxemic hypercapnic respiratory failure requiring BiPAP Acute metabolic encephalopathy likely due to hypoglycemia Diabetes mellitus with initial hypoglycemia Probably pneumonia Aspiration risk Dysphagia Acute kidney injury on chronic kidney disease, requiring start of HD 10/30 Severe anemia requiring blood transfusion Metabolic acidosis Electrolyte imbalance :hyponatremia, hyperkalemia HTN with HTN urgency Dysphagia Hematuria 2 to pt pulled off his Lyles catheter Possibly DAYANA [employer] TOYIN BiPAP at HS and prn currently on O2 4 L via NC titrate O2, pulm toilet patient likely had DAYANA. recommend sleep study as OP CXR 11/02 -> Stable slightly increased bilateral pleural effusions. Otherwise little exchange mechanic 3 days 10/21 and 10/24 rapid COVID NGT, abx as per ID recs -> Ceftriaxone , completed 10/30 ; s/p Vanco , completed Rx for PNA 7 days, remains afebrile no leucocytosis BCX 10/21 NGTD UCX NGT SCX if able Venous Duplex BLE 10/25 -> NGT CT head revealed bilateral mastoid disease; a new finding ID recommended ENT eval- pending- per primary team on HD- started 10/30 renal US ->Mildly atrophic kidneys. No hydronephrosis or nephrolithiasis. monitor volumes, renal parameters, lytes, correct as needed fup with nephro recs placement of permanent HD catheter rescheduled for am 11/07 due to Eliquis ( now on hold) ECHO with pEF 55-60% on chronic a/c swallow eval with aspiration risk diet texture as per ST recs with strict asp precautions and assistance with meals now NGT repeat BSSE11/04 -> recommended nonoral feeding started on NGT feeding strict aspiration precautions probably may need G tube-> per further GI recs AMS 10/[address] head negative, off sedatives ammonia WNL NGT inserted for meds as per nephro recs NEED NEURO EVAL-per primary AMS somewhat improving to baseline HgA1c -6.1 hold oral anti-glycemic SSI prn sensitive initial AMS was most likely due to episode of hypoglycemia CT head NGT for acute ICP -done x 2 BP management with CCB and Hydralazine prn for BP spikes monitor HH with goal to keep Hgb above 7 stool OB anemia w/up noted , heme on board s/p 1 dose of Venofer on EPO hematuria resolved, Hgb at baseline GI prophayxlis supportive care WILL NEED HOME TRILOGY VENT TO BE ARRANGED ON DISCHARGE case management aware, work in progress case discussed and evaluated by supervising physician Leoncio Galan MD 11/07/192033: Subjective Allergies: Coded Allergies: PENICILLINS (Verified Allergy, Unknown, 10/25/19) tolerated Ceftriaxone Assessment/Plan Assessment/Plan Patient seen and examined with PILOT SUBMERSIBLE. Agree with above A&P as it reflects our joint deliberations. Reema Hanna NP Nov 07, 2019 10:12 Leoncio Galan MD Nov 07, 2019 20:34
--- NOTE | 2019-11-07 11:02 | Surgery Progress Note ---
Surgery Progress Note Subjective Procedure Performed Right femoral temporary hemodialysis catheter insertion Additional Comments leukocytosis renal insufficiency plan HD line radiology tomorrow comfortable appearing Objective Last 24 Hour Vital Signs Date Time Temp Pulse Resp B/P (MAP) Pulse Ox O2 Delivery O2 Flow Rate FiO2 11/07/19 08:29 85 150/68 11/07/19 08:19 85 11/07/19 08:00 Nasal Cannula 4.0 Nasal Cannula 4.0 11/07/19 08:00 98.2 85 16 150/68 (95) 99 11/07/19 08:00 4.0 11/07/19 04:00 69 11/07/19 04:00 Nasal Cannula 4.0 Nasal Cannula 4.0 11/07/19 04:00 98.2 79 16 156/51 (86) 100 11/07/19 04:00 4.0 11/07/19 02:34 81 20 98 30 11/07/19 01:04 80 19 98 30 11/07/19 00:00 Nasal Cannula 4.0 Nasal Cannula 4.0 11/06/19 23:47 69 11/06/19 23:44 98.2 79 16 153/62 (92) 100 11/06/19 22:16 75 20 100 30 11/06/19 20:00 4.0 11/06/19 20:00 76 11/06/19 20:00 Nasal Cannula 4.0 Nasal Cannula 4.0 11/06/19 19:53 98.2 77 16 147/58 (87) 100 11/06/19 19:38 100 Nasal Cannula 3.0 32 11/06/19 18:23 78 144/51 11/06/19 16:00 3.0 11/06/19 16:00 98.2 78 16 144/51 (82) 100 11/06/19 15:56 Nasal Cannula 4.0 Bi-pap 12.0 11/06/19 15:26 78 11/06/19 12:00 Nasal Cannula 3.0 Bi-pap 12.0 11/06/19 12:00 74 11/06/19 12:00 3.0 11/06/19 12:00 98.2 77 19 148/56 (86) 100 I&O Intake and Output 11/06/19 11/07/19 19:00 07:00 Intake Total 360 ml 400 ml Balance 360 ml 400 ml Free Water 250 ml Tube Feeding 110 ml 400 ml # Voids 3 2 Dressing: other Wound: other Cardiovascular: RSR Respiratory: decreased breath sounds Abdomen: soft, non-tender, present bowel sounds Extremities: edema, no cyanosis Laboratory Tests Test 11/06/19 18:27 11/07/19 00:37 11/07/19 03:40 11/07/19 05:03 POC Whole Blood Glucose 149 MG/DL (74-106) H Pending Pending White Blood Count 10.9 K/UL (4.8-10.8) H Red Blood Count 3.07 M/UL (4.70-6.10) L Hemoglobin 9.4 G/DL (14.2-18.0) L Hematocrit 31.4 % (42.0-52.0) L Mean Corpuscular Volume 102 FL (80-99) H Mean Corpuscular Hemoglobin 30.5 PG (27.0-31.0) Mean Corpuscular Hemoglobin Concent 29.8 G/DL (32.0-36.0) L Red Cell Distribution Width 15.9 % (11.6-14.8) H Platelet Count 160 K/UL (150-450) Mean Platelet Volume 7.3 FL (6.5-10.1) Neutrophils (%) (Auto) 82.9 % (45.0-75.0) H Lymphocytes (%) (Auto) 9.7 % (20.0-45.0) L Monocytes (%) (Auto) 6.6 % (1.0-10.0) Eosinophils (%) (Auto) 0.6 % (0.0-3.0) Basophils (%) (Auto) 0.3 % (0.0-2.0) Sodium Level 142 MMOL/L (136-145) Potassium Level 4.2 MMOL/L (3.5-5.1) Chloride Level 103 MMOL/L (98-107) Carbon Dioxide Level 36 MMOL/L (21-32) H Anion Gap 3 mmol/L (5-15) L Blood Urea Nitrogen 54 mg/dL (7-18) H Creatinine 3.8 MG/DL (0.55-1.30) H Estimat Glomerular Filtration Rate 15.4 mL/min (>60) Glucose Level 142 MG/DL (74-106) H Calcium Level 9.1 MG/DL (8.5-10.1) Phosphorus Level 3.3 MG/DL (2.5-4.9) Magnesium Level 2.6 MG/DL (1.8-2.4) H Total Bilirubin 0.5 MG/DL (0.2-1.0) Aspartate Amino Transf (AST/SGOT) 21 U/L (15-37) Alanine Aminotransferase (ALT/SGPT) 17 U/L (12-78) Alkaline Phosphatase 104 U/L (46-116) C-Reactive Protein, Quantitative 4.7 mg/dL (0.00-0.90) H Total Protein 5.8 G/DL (6.4-8.2) L Albumin 2.2 G/DL (3.4-5.0) L Globulin 3.6 g/dL Albumin/Globulin Ratio 0.6 (1.0-2.7) L Plan Problems: (1) Hypercarbia (2) Pleural effusion (3) Chronic renal failure (4) Anemia (5) CHF (congestive heart failure) (6) Bacteremia (7) Cellulitis Assessment & Plan: penile swelling improved no active bleeding reyes okay will monitor (8) Hypoglycemia (9) Hyponatremia (10) ATN (acute tubular necrosis) (11) Metabolic acidosis Assessment & Plan: DYSPHAGIA RISK FACTORS INCLUDE: RESPIRATORY WELL MULTIPLE MEDICAL COMPLICATIONS, SHORTNESS OF BREATH, WORK OF BREATHING, DECREASED MENTATION, HX OF SUBOPTIMAL P.O. INTAKE, LETHARGY (DIFFICULTY SUSTAINING WAKEFULNESS) , CLINICAL HISTORY: AMS CURRENT CXR: Indication: Shortness of breath Technique: One view of the chest Comparison: 10/31/2019 Findings: Interim placement of nasogastric tube, tip projected at the level of the gastric body. This was also demonstrated on 11/01/2019 abdominal radiograph. Bilateral hazy opacity appears similar to or perhaps slightly increased from the prior study. Generalized mild interstitial prominence persists. Impression: Stable slightly increased bilateral pleural effusions Otherwise little mold changer 3 days INITIAL IMPRESSION: PATIENT POSITIONED AT 90 DEGREES UPRIGHT IN BED AND PRESENTED WITH P.O. TRIALS OF ICE CHIPS, ONE AT A TIME. LINGUAL SIZE PRESENTS ENLARGED. PATIENT PERSISTENTLY MOUTH BREATHING. WHEN PRESENTED WITH ONE ICE CHIP HE MANIPULATED IT, ALLOWED IT TO MELT ON HIS TONGUE AND AFTER A MODERATE DELAY, HE SWALLOWED. RR CHANGES FROM 18 BREATHS PER MINUTE TO 25 BREATHS PER MINUTE ALONG WITH WORK OF BREATHING. WHEN ASKED TO SAY "AH" POST SWALLOW, PATIENTS VOCAL QUALITY WAS WET/GURGLY. HYOLARYNGEAL EXCURSION PRESENTED MODERATELY DECREASED. PATIENT ESSENTIALLY NON/VERBAL THIS AFTERNOON. HIGH ASPIRATION RISK. HIS RISK FOR CONSISTENT/STABLE/SUFFICIENT P.O. INTAKE TO SUPPORT NUTRITION/HYDRATION NEEDS. RECOMMENDATIONS: 1. CONTINUE NON/ORAL FEEDING MANAGEMENT PRIMARY SOURCE OF NUTRITION/ HYDRATION/MEDICATION 2. NPO STATUS 3. RE/ORDER SWALLOW EVALUATION IF/WHEN PATIENTS MEDICAL STATUS STABILIZES. (12) Pneumonia (13) Cellulitis of foot Assessment & Plan: Pt presented on admission with Bilat TMA. Pressure injuries both heels. Stable dry necrosis note to Plantar /lateral L TMA. L Heel is boggy with non- Blanchable erythema. . R Heel Boggy with Non-Blanchable erythema.Haemosiderin with Xerosis skin noted to R and L lower ext. Darker skin tone without erythema , induration or fluctuance Medial L Malleolus. Darker skin tone without erythema or induration noted to sacrum. Tx.Plan: Apply Moisture Barrier Paste to Sacrum. Cover with Optifoam drsg.Change every 3 days and prn. Apply Betadine to eschar plantar/lateral L TMA . Cover with Optifoam drsg. Change every 3 days and prn. Apply Cavilon Skin Barrier to both heels and Malleoli. Cover each site with Optifoam drsg. Change every 7days and prn. Reposition at least every 2hours or as tolerated. Off load heels with pillow.Hx prior amputation prior MRI and plain films reviewed wounds stable and local care being provided no abscess noted cont with dressings elevate heels with pillow turn q2h off load pressure air mattress will follow with recs thank you (14) Osteomyelitis (15) History of hypertension (16) Renal failure (ARF), acute on chronic (17) Acute encephalopathy (18) Diabetes mellitus (19) Hypertension (20) Cholelithiasis Assessment & Plan: US reviewed exam benign asymptomatic cholelithiasis alk phos mild elevated lfts improved trend labs no acute surgical intervention planned Liver: Liver measures 14.8 cm. No intrahepatic bile duct dilation. Gallbladder: Small stone in the gallbladder. No significant gallbladder wall thickening or pericholecystic fluid. Negative sonographic Bianchi's sign. Common bile duct: Normal common bile duct measuring 4.5 mm. No stones. No dilation. Pancreas: Pancreas is not visualized due to overlying bowel gas. Kidneys: Right kidney measures 9.1 cm in length. No hydronephrosis or stone. Left kidney not visualized due to patient's body habitus. Spleen: Spleen measures 9.4 cm. No focal lesion. Aorta: Visualized portions of the aorta are grossly unremarkable. The mid and distal portions are obscured by bowel gas. Inferior vena cava: Unremarkable. Free fluid: No ascites. Tubes, lines and devices: Reyes catheter in a decompressed bladder. IMPRESSION: Small stone in the gallbladder. No significant gallbladder wall thickening or pericholecystic fluid. Negative sonographic Bianchi's sign. Mariusz Diehl Nov 07, 2019 11:02
[2019-11-07 12:00] VITALS: BP 144/53
--- NOTE | 2019-11-07 12:30 | Nephrology Progress Note ---
Assessment/Plan Problem List: (1) Renal failure (ARF), acute on chronic (2) Metabolic acidosis (3) Electrolyte imbalance Assessment: Hyponatremia and hyperkalemia (4) Anemia (5) CHF (congestive heart failure) Assessment 79-year-old male is admitted for hypoglycemia Patient has renal failure which appears to be acute on chronic Hyperkalemia Hyponatremia CHF, pleural effusion, pneumonia Anemia Metabolic acidosis Hypothyroidism Plan November 06: Patient due for tunnel catheter insertion November 07. Serum creatinine is rising. Labs reviewed. Continue per consultants. November 05: Last dialysis November 03. Eliquis on hold. Due tunneled catheter insertion on November 07. Labs are reviewed. Continue current management. November 04: Dialyzed yesterday. Due for insertion of tunneled catheter today. May need to hold Eliquis and reschedule catheter insertion on Friday. Will monitor renal parameters in the meantime. November 03: Dialyzed this morning. Stable from renal standpoint of view. Due for insertion of tunneled catheter tomorrow. November 02: Dialyzed yesterday. Will DC IV fluid. Dialysis tomorrow. Potassium supplement given. Per orders. November 01: Patient currently being dialyzed. Tolerating well. Labs will be reviewed. Continue per consultants. October 31: Patient was dialyzed yesterday. Clinically doing better. We will continue to monitor renal parameters. Dialysis as needed. October 30: Serum creatinine rising. Patient due to have a temporary dialysis catheter and due for dialysis today. Will continue to follow-up renal parameters. Patient remains full code. October 29: Serum creatinine rising. Serum creatinine 4.5 today. Calculated creatinine clearance is 12. Kidney ultrasound ordered yesterday results were reviewed. Patient appears to have acute renal failure due to underlying sepsis and nephrotoxic medications. Patient requires dialysis treatment. Ordered to obtain consent from the responsible republican. Will communicate with PMD and or he is coverage. October 28: Serum creatinine higher to 4.2 today. Blood pressure appears more stable. In view of worsening renal failure, will order stat kidney ultrasound and urine studies. Continue to monitor renal parameters. Patient is full code. Worsening renal parameters may lead to hemodialysis treatment. October 27: Patient pulled out the Lyles catheter. Serum creatinine went up to 3.8. Blood pressure somewhat low. Heart rate in 50s. Will discontinue Coreg. We will continue to monitor renal parameters. October 26: Serum creatinine lower again today. Will abort the dialysis plan. Continue per consultants. Continue to monitor renal parameters. Medication list reviewed. October 25: Clinically improving. Serum creatinine lower. Urine output increased. No dialysis planned at this time. Continue per consultants. October 24: Patient's respiratory status somewhat improved. Serum creatinine down to 3.9. Urinary output somewhat increased. Will hold placement of dialysis catheter at this time. Blood pressure medication adjusted. Continue to monitor renal parameters. Per orders. October 23: Patient remains on BiPAP. More Kayexalate ordered. Will consider hemodialysis to correct fluid overload and hyperkalemia and acidosis. Will discuss with PMD. Meanwhile IV Synthroid started. Discussed with RN Timothy Patient already transfused 1 unit for severe anemia previously Will initiate Epogen 10,000 units subcutaneously 1 dose of IV iron Venofer 200 g IV Kayexalate for hyperkalemia as needed 2D echocardiogram ordered, ejection fraction is reported normal Kidney ultrasound ordered: Kidneys: Right kidney measures 9.1 cm in length. No hydronephrosis or stone. Left kidney not visualized due to patient's body habitus. Avoid nephrotoxic's Monitor renal parameters Will hold insulin and hypoglycemic agents until hypoglycemia is reasonably resolved Subjective ROS Limited/Unobtainable: No Constitutional: Reports: malaise, weakness Objective Objective Last 24 Hour Vital Signs Date Time Temp Pulse Resp B/P (MAP) Pulse Ox O2 Delivery O2 Flow Rate FiO2 11/07/19 12:00 4.0 11/07/19 12:00 Nasal Cannula 4.0 Nasal Cannula 4.0 11/07/19 12:00 98.1 79 24 144/53 (83) 100 11/07/19 08:29 85 150/68 11/07/19 08:19 85 11/07/19 08:00 Nasal Cannula 4.0 Nasal Cannula 4.0 11/07/19 08:00 98.2 85 16 150/68 (95) 99 11/07/19 08:00 4.0 11/07/19 04:00 69 11/07/19 04:00 Nasal Cannula 4.0 Nasal Cannula 4.0 11/07/19 04:00 98.2 79 16 156/51 (86) 100 11/07/19 04:00 4.0 11/07/19 02:34 81 20 98 30 11/07/19 01:04 80 19 98 30 11/07/19 00:00 Nasal Cannula 4.0 Nasal Cannula 4.0 11/06/19 23:47 69 11/06/19 23:44 98.2 79 16 153/62 (92) 100 11/06/19 22:16 75 20 100 30 11/06/19 20:00 4.0 11/06/19 20:00 76 11/06/19 20:00 Nasal Cannula 4.0 Nasal Cannula 4.0 11/06/19 19:53 98.2 77 16 147/58 (87) 100 11/06/19 19:38 100 Nasal Cannula 3.0 32 11/06/19 18:23 78 144/51 11/06/19 16:00 3.0 11/06/19 16:00 98.2 78 16 144/51 (82) 100 11/06/19 15:56 Nasal Cannula 4.0 Bi-pap 12.0 11/06/19 15:26 78 Intake and Output 11/06/19 11/07/19 19:00 07:00 Intake Total 360 ml 400 ml Balance 360 ml 400 ml Free Water 250 ml Tube Feeding 110 ml 400 ml # Voids 3 2 Current Medications Medications (Trade) Dose Ordered Sig/Cammy Route PRN Reason Start Time Stop Time Status Last Admin Dose Admin Acetaminophen (Tylenol) 650 mg Q6H PRN NG Pain 3-5 11/03/19 11:15 12/02/19 11:14 Amlodipine Besylate (Norvasc) 5 mg BID NG 11/03/19 18:00 11/25/19 08:59 11/07/19 08:29 Atorvastatin Calcium (Lipitor) 10 mg BEDTIME NG 11/03/19 21:00 01/21/20 20:59 11/06/19 21:17 Chlorhexidine Gluconate (Yi-Hex 2%) 1 applic DAILY@1999 TOPIC 11/03/19 20:00 01/31/20 19:59 11/06/19 20:00 Dextrose (Dextrose 50%) 25 ml Q30M PRN IV Hypoglycemia 11/03/19 11:15 01/20/20 21:44 Dextrose (Dextrose 50%) 50 ml Q30M PRN IV Hypoglycemia 11/03/19 11:15 01/20/20 21:44 Docusate Sodium (Colace) 100 mg THREE TIMES A DAY NG 11/03/19 13:00 12/02/19 17:59 11/07/19 08:28 Epoetin William (Epoetin William(ESRD on dialysis)) 10,000 unit SUBQ 11/03/19 21:00 02/01/20 20:59 11/05/19 20:27 Haloperidol (Haldol) 5 mg Q12H PRN NG Agitation 11/03/19 11:15 12/17/19 11:14 Haloperidol Lactate (Haldol) 5 mg Q6H PRN IM Agitation 11/03/19 11:15 12/10/19 11:14 Hydralazine HCl (Apresoline) 10 mg Q4H PRN IV For High Blood Pressure 11/03/19 11:15 01/24/20 11:14 Insulin Aspart (NovoLOG) Q6HR SUBQ 11/06/19 06:00 01/31/20 06:29 11/07/19 11:57 Lactulose (Cephulac) 10 gm BID NG 11/03/19 18:00 12/01/19 08:59 11/07/19 08:28 Levothyroxine Sodium (Synthroid) 75 mcg DAILY@0630 ORAL 11/04/19 06:30 12/04/19 06:29 11/07/19 05:20 Pantoprazole (Protonix) 40 mg EVERY 12 HOURS IVP 11/03/19 21:00 11/22/19 08:59 11/07/19 08:29 Polyethylene Glycol (Miralax) 17 gm BEDTIME NG 11/03/19 21:00 12/01/19 20:59 11/05/19 20:27 Sennosides (Senokot) 8.6 mg HSPRN PRN NG Constipation 11/03/19 16:15 12/02/19 16:14 Sevelamer Carbonate (Renvela) 1,600 mg THREE TIMES A DAY NG 11/03/19 13:00 01/21/20 17:59 11/07/19 08:28 Laboratory Tests 11/06/19 18:27: POC Whole Blood Glucose 149H 11/07/19 00:37: POC Whole Blood Glucose [Pending] 11/07/19 03:40: White Blood Count 10.9H, Red Blood Count 3.07L, Hemoglobin 9.4L, Hematocrit 31.4L, Mean Corpuscular Volume 102H, Mean Corpuscular Hemoglobin 30.5, Mean Corpuscular Hemoglobin Concent 29.8L, Red Cell Distribution Width 15.9H, Platelet Count 160, Mean Platelet Volume 7.3, Neutrophils (%) (Auto) 82.9H, Lymphocytes (%) (Auto) 9.7L, Monocytes (%) (Auto) 6.6, Eosinophils (%) (Auto) 0.6, Basophils (%) (Auto) 0.3, Sodium Level 142, Potassium Level 4.2, Chloride Level 103, Carbon Dioxide Level 36H, Anion Gap 3L, Blood Urea Nitrogen 54H, Creatinine 3.8H, Estimat Glomerular Filtration Rate 15.4, Glucose Level 142H, Calcium Level 9.1, Phosphorus Level 3.3, Magnesium Level 2.6H, Total Bilirubin 0.5, Aspartate Amino Transf (AST/SGOT) 21, Alanine Aminotransferase (ALT/SGPT) 17, Alkaline Phosphatase 104, C-Reactive Protein, Quantitative 4.7H, Total Protein 5.8L, Albumin 2.2L, Globulin 3.6, Albumin/Globulin Ratio 0.6L 11/07/19 05:03: POC Whole Blood Glucose [Pending] 11/07/19 11:48: POC Whole Blood Glucose 144H Height (Feet): 5 Height (Inches): 8.00 Weight (Pounds): 211 General Appearance: no apparent distress, lethargic Cardiovascular: tachycardia Respiratory/Chest: decreased breath sounds Abdomen: distended Objective No change Naveed Vanegas MD Nov 07, 2019 12:30
--- NOTE | 2019-11-07 14:06 | General Progress Note ---
Assessment/Plan Assessment/Plan: Assessment/Plan Problem List: (1) Hypertension ICD Codes: I10 - Essential (primary) hypertension SNOMED: 76111162 (2) Diabetes mellitus ICD Codes: E11.9 - Type 2 diabetes mellitus without complications SNOMED: 07417291 (3) Anemia ICD Codes: D64.9 - Anemia, unspecified SNOMED: 281413297 (4) Cholelithiasis ICD Codes: K80.20 - Calculus of gallbladder without cholecystitis without obstruction SNOMED: 169036859 (5) CHF (congestive heart failure) ICD Codes: I50.9 - Heart failure, unspecified SNOMED: 14822363 Assessment/Plan: stool ob positive but no overt GIB patient on BIPAP and not stable for GI procedures at this time fu cbc ppi GI procedures when patient is more stable NGTF Subjective Allergies: Coded Allergies: PENICILLINS (Verified Allergy, Unknown, 10/25/19) tolerated Ceftriaxone Subjective Above noted awake, non communicative d/w staff respiratory therapist on BIPAP at nights Objective Last 24 Hour Vital Signs Date Time Temp Pulse Resp B/P (MAP) Pulse Ox O2 Delivery O2 Flow Rate FiO2 11/07/19 12:00 4.0 11/07/19 12:00 Nasal Cannula 4.0 Nasal Cannula 4.0 11/07/19 12:00 98.1 79 24 144/53 (83) 100 11/07/19 11:41 80 11/07/19 08:29 85 150/68 11/07/19 08:19 85 11/07/19 08:00 Nasal Cannula 4.0 Nasal Cannula 4.0 11/07/19 08:00 98.2 85 16 150/68 (95) 99 11/07/19 08:00 4.0 11/07/19 04:00 69 11/07/19 04:00 Nasal Cannula 4.0 Nasal Cannula 4.0 11/07/19 04:00 98.2 79 16 156/51 (86) 100 11/07/19 04:00 4.0 11/07/19 02:34 81 20 98 30 11/07/19 01:04 80 19 98 30 11/07/19 00:00 Nasal Cannula 4.0 Nasal Cannula 4.0 11/06/19 23:47 69 11/06/19 23:44 98.2 79 16 153/62 (92) 100 11/06/19 22:16 75 20 100 30 11/06/19 20:00 4.0 11/06/19 20:00 76 11/06/19 20:00 Nasal Cannula 4.0 Nasal Cannula 4.0 11/06/19 19:53 98.2 77 16 147/58 (87) 100 11/06/19 19:38 100 Nasal Cannula 3.0 32 11/06/19 18:23 78 144/51 11/06/19 16:00 3.0 11/06/19 16:00 98.2 78 16 144/51 (82) 100 11/06/19 15:56 Nasal Cannula 4.0 Bi-pap 12.0 11/06/19 15:26 78 Intake and Output 11/06/19 11/07/19 19:00 07:00 Intake Total 360 ml 450 ml Balance 360 ml 450 ml Free Water 250 ml 50 ml Tube Feeding 110 ml 400 ml # Voids 3 2 Laboratory Tests 11/06/19 18:27: POC Whole Blood Glucose 149H 11/07/19 00:37: POC Whole Blood Glucose [Pending] 11/07/19 03:40: White Blood Count 10.9H, Red Blood Count 3.07L, Hemoglobin 9.4L, Hematocrit 31.4L, Mean Corpuscular Volume 102H, Mean Corpuscular Hemoglobin 30.5, Mean Corpuscular Hemoglobin Concent 29.8L, Red Cell Distribution Width 15.9H, Platelet Count 160, Mean Platelet Volume 7.3, Neutrophils (%) (Auto) 82.9H, Lymphocytes (%) (Auto) 9.7L, Monocytes (%) (Auto) 6.6, Eosinophils (%) (Auto) 0.6, Basophils (%) (Auto) 0.3, Sodium Level 142, Potassium Level 4.2, Chloride Level 103, Carbon Dioxide Level 36H, Anion Gap 3L, Blood Urea Nitrogen 54H, Creatinine 3.8H, Estimat Glomerular Filtration Rate 15.4, Glucose Level 142H, Calcium Level 9.1, Phosphorus Level 3.3, Magnesium Level 2.6H, Total Bilirubin 0.5, Aspartate Amino Transf (AST/SGOT) 21, Alanine Aminotransferase (ALT/SGPT) 17, Alkaline Phosphatase 104, C-Reactive Protein, Quantitative 4.7H, Total Protein 5.8L, Albumin 2.2L, Globulin 3.6, Albumin/Globulin Ratio 0.6L 11/07/19 05:03: POC Whole Blood Glucose [Pending] 11/07/19 11:48: POC Whole Blood Glucose 144H Height (Feet): 5 Height (Inches): 8.00 Weight (Pounds): 211 Objective Debilitated L man NCAT, (+) NGT supple CTA RR Abd soft, obese (+) edema OBS Jaylen Rowe MD Nov 07, 2019 14:06
[2019-11-07 16:00] VITALS: BP 115/56
[2019-11-07 20:00] VITALS: BP 127/69
--- NOTE | 2019-11-07 20:13 | Cardiology Progress Note ---
Subjective DATE OF SERVICE: Nov 07, 2019 Remains off anti-coagulation in anticipation of dialysis catheter placement tomorrow. Monitor: Sinus with atrial ectopy Objective Last 24 Hour Vital Signs Date Time Temp Pulse Resp B/P (MAP) Pulse Ox O2 Delivery O2 Flow Rate FiO2 11/07/19 18:12 73 115/56 11/07/19 16:00 99.1 73 23 115/56 (75) 99 11/07/19 16:00 Nasal Cannula 4.0 Nasal Cannula 4.0 11/07/19 16:00 4.0 11/07/19 15:30 80 11/07/19 12:00 4.0 11/07/19 12:00 Nasal Cannula 4.0 Nasal Cannula 4.0 11/07/19 12:00 98.1 79 24 144/53 (83) 100 11/07/19 11:41 80 11/07/19 08:29 85 150/68 11/07/19 08:19 85 11/07/19 08:00 Nasal Cannula 4.0 Nasal Cannula 4.0 11/07/19 08:00 98.2 85 16 150/68 (95) 99 11/07/19 08:00 4.0 11/07/19 04:00 69 11/07/19 04:00 Nasal Cannula 4.0 Nasal Cannula 4.0 11/07/19 04:00 98.2 79 16 156/51 (86) 100 11/07/19 04:00 4.0 11/07/19 02:34 81 20 98 30 11/07/19 01:04 80 19 98 30 11/07/19 00:00 Nasal Cannula 4.0 Nasal Cannula 4.0 11/06/19 23:47 69 11/06/19 23:44 98.2 79 16 153/62 (92) 100 11/06/19 22:16 75 20 100 30 RHYTHM: NSR, ST LUNGS: bilateral rhonchi CARDIAC: normal rate, regular rhythm, normal S1 and S2 ABDOMEN: normal bowel sounds, non tender, soft, no organomegaly, no mass EXTREMITIES: No edema Laboratory Tests Test 11/07/19 00:37 11/07/19 03:40 11/07/19 05:03 11/07/19 11:48 POC Whole Blood Glucose Pending Pending 144 MG/DL (74-106) H White Blood Count 10.9 K/UL (4.8-10.8) H Red Blood Count 3.07 M/UL (4.70-6.10) L Hemoglobin 9.4 G/DL (14.2-18.0) L Hematocrit 31.4 % (42.0-52.0) L Mean Corpuscular Volume 102 FL (80-99) H Mean Corpuscular Hemoglobin 30.5 PG (27.0-31.0) Mean Corpuscular Hemoglobin Concent 29.8 G/DL (32.0-36.0) L Red Cell Distribution Width 15.9 % (11.6-14.8) H Platelet Count 160 K/UL (150-450) Mean Platelet Volume 7.3 FL (6.5-10.1) Neutrophils (%) (Auto) 82.9 % (45.0-75.0) H Lymphocytes (%) (Auto) 9.7 % (20.0-45.0) L Monocytes (%) (Auto) 6.6 % (1.0-10.0) Eosinophils (%) (Auto) 0.6 % (0.0-3.0) Basophils (%) (Auto) 0.3 % (0.0-2.0) Sodium Level 142 MMOL/L (136-145) Potassium Level 4.2 MMOL/L (3.5-5.1) Chloride Level 103 MMOL/L (98-107) Carbon Dioxide Level 36 MMOL/L (21-32) H Anion Gap 3 mmol/L (5-15) L Blood Urea Nitrogen 54 mg/dL (7-18) H Creatinine 3.8 MG/DL (0.55-1.30) H Estimat Glomerular Filtration Rate 15.4 mL/min (>60) Glucose Level 142 MG/DL (74-106) H Calcium Level 9.1 MG/DL (8.5-10.1) Phosphorus Level 3.3 MG/DL (2.5-4.9) Magnesium Level 2.6 MG/DL (1.8-2.4) H Total Bilirubin 0.5 MG/DL (0.2-1.0) Aspartate Amino Transf (AST/SGOT) 21 U/L (15-37) Alanine Aminotransferase (ALT/SGPT) 17 U/L (12-78) Alkaline Phosphatase 104 U/L (46-116) C-Reactive Protein, Quantitative 4.7 mg/dL (0.00-0.90) H Total Protein 5.8 G/DL (6.4-8.2) L Albumin 2.2 G/DL (3.4-5.0) L Globulin 3.6 g/dL Albumin/Globulin Ratio 0.6 (1.0-2.7) L Test 11/07/19 18:09 POC Whole Blood Glucose 140 MG/DL (74-106) H Assessment/Plan Assessment/Plan Hypertension/HHD - recovering hypertensive urgency Sinus tachycardia Renal failure Resolved lactic acidosis Respiratory failure Ac/chr diastolic CHF CRITICAL & GUARDED Titrating antiHTN regimen Trend BNP; monitor volume status Respiratory hygiene HD/UF following access placement Hold anti-coagulation for line placement John Coffman MD Nov 07, 2019 20:13
[2019-11-07] MEDS: Dyna-Hex 2% Top Sol 2oz TOPIC SCH (20:31)
[2019-11-07] MEDS: Miralax 17gm pkt NG SCH (20:31)
[2019-11-08] VITALS (9 sets, daily range): BP systolic 132–159; BP diastolic 51–83
[2019-11-08] MEDS: NovoLOG Insulin Flexpen SUBQ SCH ×5 (05:48→23:46)
--- NOTE | 2019-11-08 06:55 | General Progress Note ---
Assessment/Plan Assessment/Plan: Covering Dr. Chang ASSESSMENT AND RECOMMENDATIONS: # Anemia of chronic disease due to underlying chronic medical issues, multifactorial --> Anemia w/u has been reviewed. --> no evidence of hemolysis is noted, peripheral smear has been reviewed --> hgb goal is >7, transfuse as needed --> currently remains stable, occult blood negative --> hgb 8.4->8.6->8.3->8->8.2->9.2-->9.2 --> some blood loss due to hematuria after inflated reyes pulled 8/6 am --> EPOGEN Started # Acute kidney injury r/o potential reversible component --> reviewed meds, those that are renally cleared removed --> as per renal recs, appreciated --> cr 3.5-->4.2 --> Hd started and dw renal # Hypertension, essential --> sbp goal is <140, consider anti-htn as needed --> currently started on hyralazine 25mg po q6h prn sbp >140 # CHF - hx of CHf --> diuresis with lasix as needed --> cardiology recs appreciated prior adm #. Leukocytosis with underlying infectionv stress reaction HISTORY --> per id and better --> for infection, ABX ctx/vanc-->off #. Bilateral lower extremity amputee, metatarsal several years ago #. Hyperkalemia -- kayxelate as needed #. Dvt ppx scds --> apixaban->off for catheter placement 11/07 The time the note was entered does not necessarily correspond to the time the patient was seen. GREATLY APPRECIATE CONSULTATION. Subjective Constitutional: Denies: no symptoms, chills, diaphoresis, fever, malaise, weakness, other HEENT: Denies: no symptoms, eye pain, blurred vision, tearing, double vision, ear pain, ear discharge, nose pain, nose congestion, throat pain, throat swelling, mouth pain, mouth swelling, other Cardiovascular: Denies: no symptoms, chest pain, edema, irregular heart rate, lightheadedness, palpitations, syncope, other Neurologic/Psychiatric: Denies: no symptoms, anxiety, depressed, emotional problems, headache, numbness, paresthesia, pre-existing deficit, seizure, tingling, tremors, weakness, other Endocrine: Denies: no symptoms, excessive sweating, flushing, intolerance to cold, intolerance to heat, increased hunger, increased thirst, increased urine, unexplained weight gain, unexplained weight loss, other Hematologic/Lymphatic: Denies: no symptoms, anemia, easy bleeding, easy bruising, other Allergies: Coded Allergies: PENICILLINS (Verified Allergy, Unknown, 10/25/19) tolerated Ceftriaxone Subjective 10/[address] Chang, to do best to avoid haldol, continue restraints, jag rn, on nc, feeling better 10/25 still with some agitation overnight, meds reviewed, jag rn, haldol given in AM 10/26 is on 2l nc, also is on restraints, no night sweats, no bleeding 10/27 reyes catheter has been removed by patient, and resinserted, bed sheets, with bright red blood on exam 10/28 labs are noted, no bleeding, cr is worse, seen by renal, remains edematous 11/04 no major changes, hd as per renal, recs are noted, labs reviewed, pending neuro eval 11/05 is on bipap with restraints, no major changes, no bleeding, labs noted 11/06 remains agitated, is off eliquis for catheter placement for tuesday 11/07 on bipap, remains agitated, jag rn, procedure today Objective Last 24 Hour Vital Signs Date Time Temp Pulse Resp B/P (MAP) Pulse Ox O2 Delivery O2 Flow Rate FiO2 11/08/19 05:27 80 21 98 30 11/08/19 04:00 Nasal Cannula 4.0 Nasal Cannula 4.0 11/08/19 04:00 98.2 93 19 133/83 (100) 100 11/08/19 04:00 4.0 11/08/19 03:42 69 11/08/19 03:10 76 22 98 30 11/08/19 01:43 76 22 97 30 11/08/19 00:00 Nasal Cannula 4.0 Nasal Cannula 4.0 11/08/19 00:00 98.2 80 19 139/53 (81) 100 11/07/19 23:33 79 11/07/19 23:30 79 22 98 30 11/07/19 20:10 98 Nasal Cannula 3.0 32 11/07/19 20:00 Nasal Cannula 4.0 Nasal Cannula 4.0 11/07/19 20:00 98.7 87 20 127/69 (88) 100 11/07/19 20:00 4.0 11/07/19 19:22 80 11/07/19 18:12 73 115/56 11/07/19 16:00 99.1 73 23 115/56 (75) 99 11/07/19 16:00 Nasal Cannula 4.0 Nasal Cannula 4.0 11/07/19 16:00 4.0 11/07/19 15:30 80 11/07/19 12:00 4.0 11/07/19 12:00 Nasal Cannula 4.0 Nasal Cannula 4.0 11/07/19 12:00 98.1 79 24 144/53 (83) 100 11/07/19 11:41 80 11/07/19 08:29 85 150/68 11/07/19 08:19 85 11/07/19 08:00 Nasal Cannula 4.0 Nasal Cannula 4.0 11/07/19 08:00 98.2 85 16 150/68 (95) 99 11/07/19 08:00 4.0 Intake and Output 11/07/19 11/08/19 19:00 07:00 Intake Total 550 ml 210 ml Balance 550 ml 210 ml Free Water 150 ml 50 ml Tube Feeding 400 ml 160 ml # Voids 2 Laboratory Tests 11/07/19 11:48: POC Whole Blood Glucose 144H 11/07/19 18:09: POC Whole Blood Glucose 140H 11/08/19 00:43: POC Whole Blood Glucose 145H 11/08/19 05:48: POC Whole Blood Glucose [Pending] Height (Feet): 5 Height (Inches): 8.00 Weight (Pounds): 211 Objective GENERAL: Not in acute distress. PULMONARY: Decreased breath sounds. ++ bipap +ngt CARDIOVASCULAR: Regular rate. No S3 or S4. ABDOMEN: Soft, nontender, nondistended. EXTREMITIES: 1+ edema. No cyanosis, swelling, or edema. 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 Melvin Rizzo MD Nov 08, 2019 06:55
[2019-11-08] MEDS: Docusate 100mg/10ml Liq NG SCH ×3 (08:35→17:28)
[2019-11-08] MEDS: Renvela 800mg Pkt NG SCH ×3 (08:36→17:28)
[2019-11-08] MEDS: Pantoprazole Inj IVP SCH ×2 (08:36→20:26)
[2019-11-08] MEDS: Lactulose 10gm/15ml UDC NG SCH ×2 (08:36→17:28)
--- NOTE | 2019-11-08 08:49 | Pulmonology Progress Note ---
Reema Hanna RETAIL POS SPECIALIST 11/08/19 0849: Subjective ROS Limited/Unobtainable: No Allergies: Coded Allergies: PENICILLINS (Verified Allergy, Unknown, 10/25/19) tolerated Ceftriaxone All Systems: reviewed and negative except above Subjective more awake off Bipap ( uses at HS) on O2 via NC no resp distress CXR 11/02 not much change TF via NGT BSSE failed, rdcomemdnd non-oral feeding remains afebrile, no leukocytosis tunneled HD catheter placement pending for this am Objective Last 24 Hour Vital Signs Date Time Temp Pulse Resp B/P (MAP) Pulse Ox O2 Delivery O2 Flow Rate FiO2 11/08/19 08:36 78 159/61 11/08/19 08:00 97.5 78 23 159/61 (93) 100 11/08/19 07:02 99 Nasal Cannula 3.0 32 11/08/19 05:27 80 21 98 30 11/08/19 04:00 Nasal Cannula 4.0 Nasal Cannula 4.0 11/08/19 04:00 98.2 93 19 133/83 (100) 100 11/08/19 04:00 4.0 11/08/19 03:42 69 11/08/19 03:10 76 22 98 30 11/08/19 01:43 76 22 97 30 11/08/19 00:00 Nasal Cannula 4.0 Nasal Cannula 4.0 11/08/19 00:00 98.2 80 19 139/53 (81) 100 11/07/19 23:33 79 11/07/19 23:30 79 22 98 30 11/07/19 20:10 98 Nasal Cannula 3.0 32 11/07/19 20:00 Nasal Cannula 4.0 Nasal Cannula 4.0 11/07/19 20:00 98.7 87 20 127/69 (88) 100 11/07/19 20:00 4.0 11/07/19 19:22 80 11/07/19 18:12 73 115/56 11/07/19 16:00 99.1 73 23 115/56 (75) 99 11/07/19 16:00 Nasal Cannula 4.0 Nasal Cannula 4.0 11/07/19 16:00 4.0 11/07/19 15:30 80 11/07/19 12:00 4.0 11/07/19 12:00 Nasal Cannula 4.0 Nasal Cannula 4.0 11/07/19 12:00 98.1 79 24 144/53 (83) 100 11/07/19 11:41 80 Intake and Output 11/07/19 11/08/19 19:00 07:00 Intake Total 550 ml 210 ml Balance 550 ml 210 ml Free Water 150 ml 50 ml Tube Feeding 400 ml 160 ml # Voids 2 Objective General Appearance: no apparent distress, English speaking confused male, Lines, tubes and drains: R femoral HEENT: normocephalic, atraumatic, anicteric, mucous membranes moist, O2 3 L via NC, NGT Respiratory/Chest: few scattered crackles, no exp wheezing, Cardiovascular/Chest: normal rate, regular rhythm Abdomen: normal bowel sounds, non tender, soft Extremities: partially amputated BL foot/metatarsal Skin Exam: warm/dry Neurologic: abnormal gait, not much responsive, Musculoskeletal: atrophy BLE Laboratory Tests 11/07/19 11:48: POC Whole Blood Glucose 144H 11/07/19 18:09: POC Whole Blood Glucose 140H 11/08/19 00:43: POC Whole Blood Glucose 145H 11/08/19 05:48: POC Whole Blood Glucose [Pending] 11/08/19 08:10: Prothrombin Time [Pending], Prothromb Time International Ratio [Pending], Activated Partial Thromboplast Time [Pending], Sodium Level [Pending], Potassium Level [Pending], Chloride Level [Pending], Carbon Dioxide Level [ Pending], Blood Urea Nitrogen [Pending], Creatinine [Pending], Estimat Glomerular Filtration Rate [Pending], Glucose Level [Pending], Calcium Level [ Pending], Phosphorus Level [Pending], Magnesium Level [Pending], Total Bilirubin [Pending], Aspartate Amino Transf (AST/SGOT) [Pending], Alanine Aminotransferase (ALT/SGPT) [Pending], Alkaline Phosphatase [Pending], Total Protein [Pending], Albumin [Pending], Globulin [Pending] Current Medications Medications (Trade) Dose Ordered Sig/Cammy Route PRN Reason Start Time Stop Time Status Last Admin Dose Admin Acetaminophen (Tylenol) 650 mg Q6H PRN NG Pain 3-5 11/03/19 11:15 12/02/19 11:14 Amlodipine Besylate (Norvasc) 5 mg BID NG 11/03/19 18:00 11/25/19 08:59 11/08/19 08:36 Atorvastatin Calcium (Lipitor) 10 mg BEDTIME NG 11/03/19 21:00 01/21/20 20:59 11/07/19 20:31 Chlorhexidine Gluconate (Yi-Hex 2%) 1 applic DAILY@1999 TOPIC 11/03/19 20:00 01/31/20 19:59 11/07/19 20:31 Dextrose (Dextrose 50%) 25 ml Q30M PRN IV Hypoglycemia 11/03/19 11:15 01/20/20 21:44 Dextrose (Dextrose 50%) 50 ml Q30M PRN IV Hypoglycemia 11/03/19 11:15 01/20/20 21:44 Docusate Sodium (Colace) 100 mg THREE TIMES A DAY NG 11/03/19 13:00 12/02/19 17:59 11/08/19 08:35 Epoetin William (Epoetin William(ESRD on dialysis)) 10,000 unit SUBQ 11/03/19 21:00 02/01/20 20:59 11/05/19 20:27 Haloperidol (Haldol) 5 mg Q12H PRN NG Agitation 11/03/19 11:15 12/17/19 11:14 Haloperidol Lactate (Haldol) 5 mg Q6H PRN IM Agitation 11/03/19 11:15 12/10/19 11:14 Hydralazine HCl (Apresoline) 10 mg Q4H PRN IV For High Blood Pressure 11/03/19 11:15 01/24/20 11:14 Insulin Aspart (NovoLOG) Q6HR SUBQ 11/06/19 06:00 01/31/20 06:29 11/07/19 18:18 Lactulose (Cephulac) 10 gm BID NG 11/03/19 18:00 12/01/19 08:59 11/08/19 08:36 Levothyroxine Sodium (Synthroid) 75 mcg DAILY@0630 ORAL 11/04/19 06:30 12/04/19 06:29 11/08/19 05:46 Pantoprazole (Protonix) 40 mg EVERY 12 HOURS IVP 11/03/19 21:00 11/22/19 08:59 11/08/19 08:36 Polyethylene Glycol (Miralax) 17 gm BEDTIME NG 11/03/19 21:00 12/01/19 20:59 11/07/19 20:31 Sennosides (Senokot) 8.6 mg HSPRN PRN NG Constipation 11/03/19 16:15 12/02/19 16:14 Sevelamer Carbonate (Renvela) 1,600 mg THREE TIMES A DAY NG 11/03/19 13:00 01/21/20 17:59 11/08/19 08:36 Assessment/Plan Assessment/Plan ASSESSMENT Acute hypoxemic hypercapnic respiratory failure requiring BiPAP Acute metabolic encephalopathy likely due to hypoglycemia Diabetes mellitus with initial hypoglycemia Probably pneumonia Aspiration risk Dysphagia Acute kidney injury on chronic kidney disease, requiring start of HD 10/30 Severe anemia requiring blood transfusion Metabolic acidosis Electrolyte imbalance :hyponatremia, hyperkalemia HTN with HTN urgency Dysphagia Hematuria 2 to pt pulled off his Lyles catheter Possibly DAYANA [employer]AN OF C[employer] TOYIN BiPAP at HS and prn currently on O2 3 L via NC titrate O2, pulm toilet patient likely had DAYANA. recommend sleep study as OP CXR 11/02 -> Stable slightly increased bilateral pleural effusions. Otherwise little jacquard loom card changer 3 days 10/21 and 10/24 rapid COVID NGT, abx as per ID recs -> Ceftriaxone , completed 10/30 ; s/p Vanco , completed Rx for PNA 7 days, remains afebrile no leucocytosis BCX 10/21 NGTD UCX NGT SCX if able Venous Duplex BLE 10/25 -> NGT CT head revealed bilateral mastoid disease; a new finding ID recommended ENT eval- pending- per primary team on HD- started 10/30 renal US ->Mildly atrophic kidneys. No hydronephrosis or nephrolithiasis. monitor volumes, renal parameters, lytes, correct as needed fup with nephro recs placement of permanent HD catheter rescheduled for am 11/07 due to Eliquis ( now on hold) ECHO with pEF 55-60% on chronic a/c swallow eval with aspiration risk diet texture as per ST recs with strict asp precautions and assistance with meals now NGT repeat BSSE 11/04 -> recommended nonoral feeding started on NGT feeding strict aspiration precautions probably may need G tube-> per further GI recs AMS 10/[address] head negative, off sedatives ammonia WNL NGT inserted for meds as per nephro recs NEED NEURO EVAL-per primary AMS somewhat improving to baseline HgA1c -6.1 hold oral anti-glycemic SSI prn sensitive initial AMS was most likely due to episode of hypoglycemia CT head NGT for acute ICP -done x 2 BP management with CCB and Hydralazine prn for BP spikes monitor HH with goal to keep Hgb above 7 stool OB anemia w/up noted , heme on board s/p 1 dose of Venofer on EPO hematuria resolved, Hgb at baseline GI prophayxlis supportive care WILL NEED HOME TRILOGY VENT TO BE ARRANGED ON DISCHARGE case management aware, work in progress case discussed and evaluated by supervising physician Jonathon Pabon MD 11/08/19 1413: Subjective Allergies: Coded Allergies: PENICILLINS (Verified Allergy, Unknown, 10/25/19) tolerated Ceftriaxone Assessment/Plan Assessment/Plan Patient seen and examined with RETAIL POS SPECIALIST. Agree with above A&P as it reflects our joint deliberations. Reema Hanna NP Nov 08, 2019 08:49 Jonathon Pabon MD Nov 08, 2019 14:13
[2019-11-08 08:52] LABS: ANION GAP 2 mmol/L (5-15); BLOOD UREA NITROGEN 65 mg/dL (7-18); CALCIUM 8.7 MG/DL (8.5-10.1); CARBON DIOXIDE 36 MMOL/L (21-32); CHLORIDE 106 MMOL/L (98-107); CREATININE 4.1 MG/DL (0.55-1.30); POTASSIUM 4.4 MMOL/L (3.5-5.1); SODIUM 144 MMOL/L (136-145)
[2019-11-08 08:56] LABS: ALANINE AMINOTRANSFERASE 19 U/L (12-78); ALBUMIN 2.2 G/DL (3.4-5.0); ALBUMIN/GLOBULIN RATIO 0.8 (1.0-2.7); ALKALINE PHOSPHATASE 88 U/L (46-116); ASPARTATE AMINO TRANSFERASE 18 U/L (15-37); BILIRUBIN,TOTAL 0.5 MG/DL (0.2-1.0); PHOSPHORUS 3.5 MG/DL (2.5-4.9)
[2019-11-08 09:12] LABS: INR 1.1 (0.9-1.1)
--- NOTE | 2019-11-08 09:35 | General Progress Note ---
Assessment/Plan Problem List: (1) Hypertension ICD Codes: I10 - Essential (primary) hypertension SNOMED: 79727727 (2) Diabetes mellitus ICD Codes: E11.9 - Type 2 diabetes mellitus without complications SNOMED: 90129217 (3) Anemia ICD Codes: D64.9 - Anemia, unspecified SNOMED: 302294119 (4) Cholelithiasis ICD Codes: K80.20 - Calculus of gallbladder without cholecystitis without obstruction SNOMED: 191059225 (5) CHF (congestive heart failure) ICD Codes: I50.9 - Heart failure, unspecified SNOMED: 58120392 Assessment/Plan: stool ob positive but no overt GIB stable H&H fu cbc repeat stool ob ppi bid bowel regimen NGTF HD per nephrology failed swallow eval plan peg for tomorrow Subjective ROS Limited/Unobtainable: No Allergies: Coded Allergies: PENICILLINS (Verified Allergy, Unknown, 10/25/19) tolerated Ceftriaxone Objective Last 24 Hour Vital Signs Date Time Temp Pulse Resp B/P (MAP) Pulse Ox O2 Delivery O2 Flow Rate FiO2 11/08/19 08:36 78 159/61 11/08/19 08:00 97.5 78 23 159/61 (93) 100 11/08/19 07:02 99 Nasal Cannula 3.0 32 11/08/19 05:27 80 21 98 30 11/08/19 04:00 Nasal Cannula 4.0 Nasal Cannula 4.0 11/08/19 04:00 98.2 93 19 133/83 (100) 100 11/08/19 04:00 4.0 11/08/19 03:42 69 11/08/19 03:10 76 22 98 30 11/08/19 01:43 76 22 97 30 11/08/19 00:00 Nasal Cannula 4.0 Nasal Cannula 4.0 11/08/19 00:00 98.2 80 19 139/53 (81) 100 11/07/19 23:33 79 11/07/19 23:30 79 22 98 30 11/07/19 20:10 98 Nasal Cannula 3.0 32 11/07/19 20:00 Nasal Cannula 4.0 Nasal Cannula 4.0 11/07/19 20:00 98.7 87 20 127/69 (88) 100 11/07/19 20:00 4.0 11/07/19 19:22 80 11/07/19 18:12 73 115/56 11/07/19 16:00 99.1 73 23 115/56 (75) 99 11/07/19 16:00 Nasal Cannula 4.0 Nasal Cannula 4.0 11/07/19 16:00 4.0 11/07/19 15:30 80 11/07/19 12:00 4.0 11/07/19 12:00 Nasal Cannula 4.0 Nasal Cannula 4.0 11/07/19 12:00 98.1 79 24 144/53 (83) 100 11/07/19 11:41 80 Intake and Output 11/07/19 11/08/19 19:00 07:00 Intake Total 550 ml 210 ml Balance 550 ml 210 ml Free Water 150 ml 50 ml Tube Feeding 400 ml 160 ml # Voids 2 Laboratory Tests 11/07/19 11:48: POC Whole Blood Glucose 144H 11/07/19 18:09: POC Whole Blood Glucose 140H 11/08/19 00:43: POC Whole Blood Glucose 145H 11/08/19 05:48: POC Whole Blood Glucose [Pending] 11/08/19 08:10: Prothrombin Time 11.7H, Prothromb Time International Ratio 1.1, Activated Partial Thromboplast Time 30, Sodium Level 144, Potassium Level 4.4, Chloride Level 106, Carbon Dioxide Level 36H, Anion Gap 2L, Blood Urea Nitrogen 65H, Creatinine 4.1H, Estimat Glomerular Filtration Rate 14.1, Glucose Level 143H, Calcium Level 8.7, Phosphorus Level 3.5, Magnesium Level 2.7H, Total Bilirubin 0.5, Aspartate Amino Transf (AST/SGOT) 18, Alanine Aminotransferase (ALT/SGPT) 19, Alkaline Phosphatase 88, Total Protein 5.1L, Albumin 2.2L, Globulin 2.9, Albumin/Globulin Ratio 0.8L Height (Feet): 5 Height (Inches): 8.00 Weight (Pounds): 210 General Appearance: lethargic EENT: normal ENT inspection Neck: supple Cardiovascular: normal rate Respiratory/Chest: decreased breath sounds Abdomen: normal bowel sounds, non tender, soft Extremities: non-tender Lawrence Humphreys MD Nov 08, 2019 09:35
--- NOTE | 2019-11-08 09:52 | Nephrology Progress Note ---
Assessment/Plan Problem List: (1) Renal failure (ARF), acute on chronic (2) Metabolic acidosis (3) Electrolyte imbalance Assessment: Hyponatremia and hyperkalemia (4) Anemia (5) CHF (congestive heart failure) Assessment 79-year-old male is admitted for hypoglycemia Patient has renal failure which appears to be acute on chronic Hyperkalemia Hyponatremia CHF, pleural effusion, pneumonia Anemia Metabolic acidosis Hypothyroidism Plan November 07: Patient due for tunneled catheter insertion today. Will order dialysis tomorrow. Continue to monitor renal parameters. Labs and medications reviewed. November 06: Patient due for tunnel catheter insertion November 07. Serum creatinine is rising. Labs reviewed. Continue per consultants. November 05: Last dialysis November 03. Eliquis on hold. Due tunneled catheter insertion on November 07. Labs are reviewed. Continue current management. November 04: Dialyzed yesterday. Due for insertion of tunneled catheter today. May need to hold Eliquis and reschedule catheter insertion on Friday. Will monitor renal parameters in the meantime. November 03: Dialyzed this morning. Stable from renal standpoint of view. Due for insertion of tunneled catheter tomorrow. November 02: Dialyzed yesterday. Will DC IV fluid. Dialysis tomorrow. Potassium supplement given. Per orders. November 01: Patient currently being dialyzed. Tolerating well. Labs will be reviewed. Continue per consultants. October 31: Patient was dialyzed yesterday. Clinically doing better. We will continue to monitor renal parameters. Dialysis as needed. October 30: Serum creatinine rising. Patient due to have a temporary dialysis catheter and due for dialysis today. Will continue to follow-up renal parameters. Patient remains full code. October 29: Serum creatinine rising. Serum creatinine 4.5 today. Calculated creatinine clearance is 12. Kidney ultrasound ordered yesterday results were reviewed. Patient appears to have acute renal failure due to underlying sepsis and nephrotoxic medications. Patient requires dialysis treatment. Ordered to obtain consent from the responsible democrat. Will communicate with PMD and or he is coverage. October 28: Serum creatinine higher to 4.2 today. Blood pressure appears more stable. In view of worsening renal failure, will order stat kidney ultrasound and urine studies. Continue to monitor renal parameters. Patient is full code. Worsening renal parameters may lead to hemodialysis treatment. October 27: Patient pulled out the Lyles catheter. Serum creatinine went up to 3.8. Blood pressure somewhat low. Heart rate in 50s. Will discontinue Coreg. We will continue to monitor renal parameters. October 26: Serum creatinine lower again today. Will abort the dialysis plan. Continue per consultants. Continue to monitor renal parameters. Medication list reviewed. October 25: Clinically improving. Serum creatinine lower. Urine output increased. No dialysis planned at this time. Continue per consultants. October 24: Patient's respiratory status somewhat improved. Serum creatinine down to 3.9. Urinary output somewhat increased. Will hold placement of dialysis catheter at this time. Blood pressure medication adjusted. Continue to monitor renal parameters. Per orders. October 23: Patient remains on BiPAP. More Kayexalate ordered. Will consider hemodialysis to correct fluid overload and hyperkalemia and acidosis. Will discuss with PMD. Meanwhile IV Synthroid started. Discussed with RN Timothy Patient already transfused 1 unit for severe anemia previously Will initiate Epogen 10,000 units subcutaneously 1 dose of IV iron Venofer 200 g IV Kayexalate for hyperkalemia as needed 2D echocardiogram ordered, ejection fraction is reported normal Kidney ultrasound ordered: Kidneys: Right kidney measures 9.1 cm in length. No hydronephrosis or stone. Left kidney not visualized due to patient's body habitus. Avoid nephrotoxic's Monitor renal parameters Will hold insulin and hypoglycemic agents until hypoglycemia is reasonably resolved Subjective ROS Limited/Unobtainable: No Constitutional: Reports: malaise Objective Objective Last 24 Hour Vital Signs Date Time Temp Pulse Resp B/P (MAP) Pulse Ox O2 Delivery O2 Flow Rate FiO2 11/08/19 08:36 78 159/61 11/08/19 08:00 97.5 78 23 159/61 (93) 100 11/08/19 07:02 99 Nasal Cannula 3.0 32 11/08/19 05:27 80 21 98 30 11/08/19 04:00 Nasal Cannula 4.0 Nasal Cannula 4.0 11/08/19 04:00 98.2 93 19 133/83 (100) 100 11/08/19 04:00 4.0 11/08/19 03:42 69 11/08/19 03:10 76 22 98 30 11/08/19 01:43 76 22 97 30 11/08/19 00:00 Nasal Cannula 4.0 Nasal Cannula 4.0 11/08/19 00:00 98.2 80 19 139/53 (81) 100 11/07/19 23:33 79 11/07/19 23:30 79 22 98 30 11/07/19 20:10 98 Nasal Cannula 3.0 32 11/07/19 20:00 Nasal Cannula 4.0 Nasal Cannula 4.0 11/07/19 20:00 98.7 87 20 127/69 (88) 100 11/07/19 20:00 4.0 11/07/19 19:22 80 11/07/19 18:12 73 115/56 11/07/19 16:00 99.1 73 23 115/56 (75) 99 11/07/19 16:00 Nasal Cannula 4.0 Nasal Cannula 4.0 11/07/19 16:00 4.0 11/07/19 15:30 80 11/07/19 12:00 4.0 11/07/19 12:00 Nasal Cannula 4.0 Nasal Cannula 4.0 11/07/19 12:00 98.1 79 24 144/53 (83) 100 11/07/19 11:41 80 Intake and Output 11/07/19 11/08/19 19:00 07:00 Intake Total 550 ml 210 ml Balance 550 ml 210 ml Free Water 150 ml 50 ml Tube Feeding 400 ml 160 ml # Voids 2 Laboratory Tests 11/07/19 11:48: POC Whole Blood Glucose 144H 11/07/19 18:09: POC Whole Blood Glucose 140H 11/08/19 00:43: POC Whole Blood Glucose 145H 11/08/19 05:48: POC Whole Blood Glucose [Pending] 11/08/19 08:10: Prothrombin Time 11.7H, Prothromb Time International Ratio 1.1, Activated Partial Thromboplast Time 30, Sodium Level 144, Potassium Level 4.4, Chloride Level 106, Carbon Dioxide Level 36H, Anion Gap 2L, Blood Urea Nitrogen 65H, Creatinine 4.1H, Estimat Glomerular Filtration Rate 14.1, Glucose Level 143H, Calcium Level 8.7, Phosphorus Level 3.5, Magnesium Level 2.7H, Total Bilirubin 0.5, Aspartate Amino Transf (AST/SGOT) 18, Alanine Aminotransferase (ALT/SGPT) 19, Alkaline Phosphatase 88, Total Protein 5.1L, Albumin 2.2L, Globulin 2.9, Albumin/Globulin Ratio 0.8L Height (Feet): 5 Height (Inches): 8.00 Weight (Pounds): 210 General Appearance: no apparent distress, lethargic EENT: other - On nasal cannula Cardiovascular: normal rate Respiratory/Chest: decreased breath sounds Abdomen: distended Objective No change Naveed Vanegas MD Nov 08, 2019 09:52
--- NOTE | 2019-11-08 09:53 | Pre-Procedure Note/Attestation ---
Pre-Procedure Note/Attestation Complete Prior to Procedure Planned Procedure: not applicable Procedure Narrative: tunneled dialysis catheter Indications for Procedure Pre-Operative Diagnosis: renal failure Attestation I attest that I discussed the nature of the procedure; its benefits; risks and complications; and alternatives (and the risks and benefits of such alternatives ), prior to the procedure, with the patient (or the patient's legal event sales representative). I attest that, if there was a reasonable possibility of needing a blood transfusion, the patient (or the patient's legal event sales representative) was given the [facility] standardized written summary, pursuant to the [place] Blood Safety Act ([place] Health and Safety Code # 1645, as amended). I attest that I re-evaluated the patient just prior to the surgery and that there has been no change in the patient's H&P, except as documented below: Discussed by phone with pt's. daughter Theresa at 0924. She agrees to proceed. Bob Whitney MD Nov 08, 2019 09:53
[2019-11-08] MEDS ORDERED: Lidocaine 2% 20mg/ml/Epi 0.005mg/ml 20ml vial INJ ONE ×2 (10:15)
[2019-11-08] MEDS ORDERED: Heparin1,000 units/500ml Premix(Conc:2 units/ml) IV ONE (10:15)
[2019-11-08] MEDS ORDERED: Lidocaine 2% 20mg/ml/EPI 0.01mg/ml 20ml ONE (10:22)
--- NOTE | 2019-11-08 10:57 | Infectious Diseases Prog Note ---
Assessment/Plan 79yo M from [facility] who p/w hypoglycemia and resp failure: Acute hypoxic respiratory failure, on BiPAP > 2L NC> RA > 2L NC Rapid COVID neg x2 (10/21, 10/24) Pneumonia on CXR Volume overload 10/30 CXR: Slightly improved 10/25 CXR: Bilateral alveolar densities are unchanged 10/24 Sp cx normal resp demario (prelim) 10/23 CXR: 1. Small layering right pleural effusion, not significantly changed. The previously noted small left pleural effusion is not as evident.Prominent lung markings and haziness, right greater left, which may be related to pulmonary vascular congestion versus pneumonitis. This is not significantly changed.. Subsegmental atelectasis versus infiltrate in the medial left lung base, also not significantly changed. 10/21 CXR: 1. Small bilateral pleural effusions. Bibasilar atelectasis versus pneumonia. 2. Prominent lung markings and hazy opacities in right greater than left lungs may represent artifact versus pulmonary vasculature congestion and edema versus infectious/inflammatory process. 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 10/31 No clear clinical correlate to this imaging finding, s/p 7 days of CTX which is good abx for mastoiditis Hypercapnia, ongoing; on BiPAP Afebrile No leukocytosis Anemia to 6.8, improved UA neg, UCx neg R/o bacteremia 10/21 BCx NTD ALEXIS on CKD, worsening --> now on HD HBsAg neg Plan: Cont to monitor off abx, s/p 7d of abx for pna, but this also covered for possible mastoiditis ENT to evaluate ears/TMs for signs of underlying mastoiditis, as seen on CT head ; would appreciate the evaluation as pt unable to tell us if he has ear pain/DE LEON , etc; if unable to obtain in house, OK for pt to have outpt ENT f/u for evaluation given that pt has remained AF wo s/sx of ear infection here, and there is no pain on ear exam here (though unable to fully evaluate the inner ears) 10/31 SP CTX #7 10/26 SP vancomycin IV #5 Trend resp status Monitor CBC, CMP D/w RN Thank you for this consult. [facility] will continue to follow. Subjective Allergies: Coded Allergies: PENICILLINS (Verified Allergy, Unknown, 10/25/19) tolerated Ceftriaxone AF 3L NC Sleeping Objective Last 24 Hour Vital Signs Date Time Temp Pulse Resp B/P (MAP) Pulse Ox O2 Delivery O2 Flow Rate FiO2 11/08/19 08:36 78 159/61 11/08/19 08:00 97.5 78 23 159/61 (93) 100 11/08/19 08:00 82 11/08/19 07:02 99 Nasal Cannula 3.0 32 11/08/19 05:27 80 21 98 30 11/08/19 04:00 Nasal Cannula 4.0 Nasal Cannula 4.0 11/08/19 04:00 98.2 93 19 133/83 (100) 100 11/08/19 04:00 4.0 11/08/19 03:42 69 11/08/19 03:10 76 22 98 30 11/08/19 01:43 76 22 97 30 11/08/19 00:00 Nasal Cannula 4.0 Nasal Cannula 4.0 11/08/19 00:00 98.2 80 19 139/53 (81) 100 11/07/19 23:33 79 11/07/19 23:30 79 22 98 30 11/07/19 20:10 98 Nasal Cannula 3.0 32 11/07/19 20:00 Nasal Cannula 4.0 Nasal Cannula 4.0 11/07/19 20:00 98.7 87 20 127/69 (88) 100 11/07/19 20:00 4.0 11/07/19 19:22 80 11/07/19 18:12 73 115/56 11/07/19 16:00 99.1 73 23 115/56 (75) 99 11/07/19 16:00 Nasal Cannula 4.0 Nasal Cannula 4.0 11/07/19 16:00 4.0 11/07/19 15:30 80 11/07/19 12:00 4.0 11/07/19 12:00 Nasal Cannula 4.0 Nasal Cannula 4.0 11/07/19 12:00 98.1 79 24 144/53 (83) 100 11/07/19 11:41 80 Height (Feet): 5 Height (Inches): 8.00 Weight (Pounds): 210 Gen: Older man, NAD in bed CV: RRR Pulm: CTAB anteriorly on NC Abd: Soft, NTND Neuro: Eyes open slightly to voice Laboratory Tests Test 11/07/19 11:48 11/07/19 18:09 11/08/19 00:43 11/08/19 05:48 POC Whole Blood Glucose 144 MG/DL (74-106) H 140 MG/DL (74-106) H 145 MG/DL (74-106) H Pending Test 11/08/19 08:10 Prothrombin Time 11.7 SEC (9.30-11.50) H Prothromb Time International Ratio 1.1 (0.9-1.1) Activated Partial Thromboplast Time 30 SEC (23-33) Sodium Level 144 MMOL/L (136-145) Potassium Level 4.4 MMOL/L (3.5-5.1) Chloride Level 106 MMOL/L (98-107) Carbon Dioxide Level 36 MMOL/L (21-32) H Anion Gap 2 mmol/L (5-15) L Blood Urea Nitrogen 65 mg/dL (7-18) H Creatinine 4.1 MG/DL (0.55-1.30) H Estimat Glomerular Filtration Rate 14.1 mL/min (>60) Glucose Level 143 MG/DL (74-106) H Calcium Level 8.7 MG/DL (8.5-10.1) Phosphorus Level 3.5 MG/DL (2.5-4.9) Magnesium Level 2.7 MG/DL (1.8-2.4) H Total Bilirubin 0.5 MG/DL (0.2-1.0) Aspartate Amino Transf (AST/SGOT) 18 U/L (15-37) Alanine Aminotransferase (ALT/SGPT) 19 U/L (12-78) Alkaline Phosphatase 88 U/L (46-116) Total Protein 5.1 G/DL (6.4-8.2) L Albumin 2.2 G/DL (3.4-5.0) L Globulin 2.9 g/dL Albumin/Globulin Ratio 0.8 (1.0-2.7) L Current Medications Medications (Trade) Dose Ordered Sig/Cammy Route PRN Reason Start Time Stop Time Status Last Admin Dose Admin Acetaminophen (Tylenol) 650 mg Q6H PRN NG Pain 3-5 11/03/19 11:15 12/02/19 11:14 Amlodipine Besylate (Norvasc) 5 mg BID NG 11/03/19 18:00 11/25/19 08:59 11/08/19 08:36 Atorvastatin Calcium (Lipitor) 10 mg BEDTIME NG 11/03/19 21:00 01/21/20 20:59 11/07/19 20:31 Chlorhexidine Gluconate (Yi-Hex 2%) 1 applic DAILY@1999 TOPIC 11/03/19 20:00 01/31/20 19:59 11/07/19 20:31 Dextrose (Dextrose 50%) 25 ml Q30M PRN IV Hypoglycemia 11/03/19 11:15 01/20/20 21:44 Dextrose (Dextrose 50%) 50 ml Q30M PRN IV Hypoglycemia 11/03/19 11:15 01/20/20 21:44 Docusate Sodium (Colace) 100 mg THREE TIMES A DAY NG 11/03/19 13:00 12/02/19 17:59 11/08/19 08:35 Epoetin William (Epoetin William(ESRD on dialysis)) 10,000 unit FRI-FRI-FRI SUBQ 11/03/19 21:00 02/01/20 20:59 11/05/19 20:27 Haloperidol (Haldol) 5 mg Q12H PRN NG Agitation 11/03/19 11:15 12/17/19 11:14 Haloperidol Lactate (Haldol) 5 mg Q6H PRN IM Agitation 11/03/19 11:15 12/10/19 11:14 Hydralazine HCl (Apresoline) 10 mg Q4H PRN IV For High Blood Pressure 11/03/19 11:15 01/24/20 11:14 Insulin Aspart (NovoLOG) Q6HR SUBQ 11/06/19 06:00 01/31/20 06:29 11/07/19 18:18 Lactulose (Cephulac) 10 gm BID NG 11/03/19 18:00 12/01/19 08:59 11/08/19 08:36 Levothyroxine Sodium (Synthroid) 75 mcg DAILY@0630 ORAL 11/04/19 06:30 12/04/19 06:29 11/08/19 05:46 Pantoprazole (Protonix) 40 mg EVERY 12 HOURS IVP 11/03/19 21:00 11/22/19 08:59 11/08/19 08:36 Polyethylene Glycol (Miralax) 17 gm BEDTIME NG 8/12/20 21:00 12/01/19 20:59 11/07/19 20:31 Sennosides (Senokot) 8.6 mg HSPRN PRN NG Constipation 11/03/19 16:15 12/02/19 16:14 Sevelamer Carbonate (Renvela) 1,600 mg THREE TIMES A DAY NG 11/03/19 13:00 01/21/20 17:59 11/08/19 08:36 Mckenna Diallo M.D. Nov 08, 2019 10:57
--- NOTE | 2019-11-08 11:44 | Brief Operative Note ---
Immediate Post Operative Note Operative Note Pre-op Diagnosis: renal failure Procedure: R IJV permacath Post-op Diagnosis: same as pre-op Surgeon: Adalberto Daley Anesthesia: local Specimen: none Complications: none Fluids: none Implant(s) used?: No Bob Daley MD Nov 08, 2019 11:44
--- NOTE | 2019-11-08 12:25 | Diagnostic Imaging Report ---
Indications: Needs long-term dialysis access Technique: Patient given IV clindamycin. Total sterile technique, including sterile probe cover and sterile gel, sterile gloves, hand hygiene, hat, mask,, sterile gown, large sterile drape, and preparation with 2% chlorhexidine utilized. Local anesthesia with 1% lidocaine. Ultrasound reveals patent and compressible right internal jugular vein Under real-time ultrasound guidance, puncture right internal jugular vein using 21-gauge micropuncture needle, passage 0.018 guidewire, exchange for 4 Faroese micropuncture introducer. The guidewire was used to measure the appropriate catheter length, and was removed. The sheath was left in place. The subcutaneous tract was then anesthetized with 1% lidocaine. A chest dermatotomy was made . The tunneling device was used to pull a 14.5 Faroese 23 cm: catheter through the subcutaneous tunnel to the neck dermatotomy. A guidewire was passed through the neck introducer into the inferior vena cava, and serial dilators were passed over it, followed by the introduction of a 14.5 Faroese AirGuard peel-away sheath. The catheter was then introduced into the sheath, the peel-away sheath was removed. Digital radiograph documents satisfactory catheter tip position in the high right atrium, no kinking at the insertion site. Both catheter ports aspirated and flushed. Catheter was fixed to the skin. Patient tolerated procedure well without immediate complication. Fluoroscopy time: 42.2 seconds Total dose: 0.39644 mGym2 Total number of images: One Comparison: None. Findings: Completion radiograph documents satisfactory position and course of the catheter, catheter tip at the high right atrium. Impression: Successful placement of right transjugular tunneled dialysis catheter, as described above
[2019-11-08] MEDS: Dyna-Hex 2% Top Sol 2oz TOPIC SCH (20:26)
[2019-11-08] MEDS: Epoetin Alfa-EPBX(ESRD on dialysis)10,000 unit/ml vial SUBQ SCH (20:26)
[2019-11-08] MEDS: Miralax 17gm pkt NG SCH (20:27)
[2019-11-09] VITALS (11 sets, daily range): BP systolic 118–167; BP diastolic 50–70
--- NOTE | 2019-11-09 02:00 | Progress Note ---
DATE: 11/08/2019 SUBJECTIVE: For the purpose of this visit, the chart has been reviewed in detail and the progress notes of the multiple specialists that are involved in the case have been reviewed. Patient was admitted with multiorgan failure associated with hypoglycemia, loss of consciousness, end-stage renal failure, anemia, electrolyte imbalance, and sepsis. Over the last 2 weeks, most of the issues on admission has been completely or partially resolved. He is currently on BiPAP machine only at night. He is on hemodialysis and a Laron catheter was supposed to be inserted today. He is fed by NG tube. The G-tube is planned. He has been transfused and his hemoglobin and hematocrit appeared to be stable. His electrolyte imbalance is now balanced. The patient has developed anoxic encephalopathy or metabolic encephalopathy. He did not return to his previous condition. The patient has a long history of multiple chronic medical syndromes that include diabetes mellitus, peripheral vascular disease with left metatarsal amputation of his toes. He had chronic renal failure, which was maintained for many years without the need for hemodialysis and his HB A1c was between 6.5 to 7.5 for many years. He was hypertensive. His blood pressure was well controlled. He had COPD that did not require any pharmacological intervention in spite of the fact that he has obstructive sleep apnea. He was treated for pneumonia for 7 days with ceftriaxone and Vanco. He is now afebrile. Hemodynamically stable. Hemoglobin and hematocrit are stable without leukocytosis. A CT scan of the brain was done and revealed bilateral mastoiditis and ENT consult was recommended. His blood pressure is well maintained. His 2D echo revealed ejection fraction of 55. He underwent swallowing eval and was found to be unable to swallow liquid or solid and the intermediate. His CT scan of the brain was negative; however, his condition only improved slightly since his admission. The patient is on Venofer and Epogen and hematuria was self-induced when he removed his Lyles. PHYSICAL EXAMINATION: VITAL SIGNS: Blood pressure is 132/57, his pulse is 73, respirations are 19, temperature 97.7. HEENT: Eyes were normal. ENT, mucous membranes were moist and intact. NECK: Supple with no JVD without lymph nodes. LUNGS: Clear without rhonchi, rales, or wheezing. There is some decrease in breath sounds in both bases. HEART: Normal sounds with regular beats. There is no tachycardia at rest. ABDOMEN: Soft, nontender with normal bowel sounds. EXTREMITIES: Warm without cyanosis, clubbing, or edema. NG tube is in place. LABORATORY AND DIAGNOSTIC DATA: His hemoglobin is 9.4, hematocrit 31.4 with MCV of 102, WBC of 10.9, and platelets is 160. His BUN and creatinine are 65 and 4.1 respectively. Sodium is 144, potassium 4.4, chloride 106, CO2 is 36. His last sodium was elevated at 145 and 154. His magnesium is 2.7. His phosphorus is 3.5 and his calcium is 8.7. His albumin is 2.3 and total protein is 5.1. His SARS-CoV-2 is negative. He underwent insertion of tunneled catheter today dialysis. Chest x-ray shows bilateral pleural effusion and an increase in interstitial marking. Repeat laboratory tests will be done in the a.m. Ayush Chang M.D. DR: YAMILETH JOB#: [id number] CC:
--- NOTE | 2019-11-09 02:55 | Cardiology Progress Note ---
Subjective DATE OF SERVICE: Nov 08, 2019 Remains off anti-coagulation following insertion of RIJ dialysis catheter. Monitor: Sinus with atrial ectopy Objective Last 24 Hour Vital Signs Date Time Temp Pulse Resp B/P (MAP) Pulse Ox O2 Delivery O2 Flow Rate FiO2 11/09/19 01:02 81 24 97 30 11/09/19 01:02 81 24 97 Bi-Pap 30 11/09/19 00:00 98.6 81 24 151/58 (89) 96 11/09/19 00:00 Nasal Cannula 4.0 Bi-pap 11/08/19 23:32 79 11/08/19 22:58 82 25 97 30 11/08/19 20:00 4.0 11/08/19 20:00 98.4 75 24 145/63 (90) 100 11/08/19 20:00 Nasal Cannula 4.0 Nasal Cannula 4.0 11/08/19 19:26 100 Nasal Cannula 3.0 32 11/08/19 19:03 74 11/08/19 17:28 73 132/57 11/08/19 16:00 4.0 11/08/19 16:00 98.5 73 19 132/57 (82) 100 11/08/19 16:00 Nasal Cannula 4.0 Nasal Cannula 4.0 11/08/19 16:00 72 11/08/19 12:00 73 11/08/19 12:00 4.0 11/08/19 12:00 Nasal Cannula 4.0 Nasal Cannula 4.0 11/08/19 12:00 97.7 69 17 132/51 (78) 98 11/08/19 11:36 76 24 4.0 11/08/19 11:05 76 24 4.0 11/08/19 10:42 76 24 4.0 11/08/19 08:36 78 159/61 11/08/19 08:00 4.0 11/08/19 08:00 97.5 78 23 159/61 (93) 100 11/08/19 08:00 82 11/08/19 08:00 Nasal Cannula 4.0 Nasal Cannula 4.0 11/08/19 07:02 99 Nasal Cannula 3.0 32 11/08/19 05:27 80 21 98 30 11/08/19 04:00 Nasal Cannula 4.0 Bi-pap 11/08/19 04:00 98.2 93 19 133/83 (100) 100 11/08/19 04:00 4.0 11/08/19 03:42 69 11/08/19 03:10 76 22 98 30 RHYTHM: NSR, ST LUNGS: bilateral rhonchi CARDIAC: normal rate, regular rhythm, normal S1 and S2 ABDOMEN: normal bowel sounds, non tender, soft, no organomegaly, no mass EXTREMITIES: No edema Laboratory Tests Test 11/08/19 05:48 11/08/19 08:10 11/08/19 13:12 11/08/19 17:26 POC Whole Blood Glucose Pending Pending 154 MG/DL (74-106) H Prothrombin Time 11.7 SEC (9.30-11.50) H Prothromb Time International Ratio 1.1 (0.9-1.1) Activated Partial Thromboplast Time 30 SEC (23-33) Sodium Level 144 MMOL/L (136-145) Potassium Level 4.4 MMOL/L (3.5-5.1) Chloride Level 106 MMOL/L (98-107) Carbon Dioxide Level 36 MMOL/L (21-32) H Anion Gap 2 mmol/L (5-15) L Blood Urea Nitrogen 65 mg/dL (7-18) H Creatinine 4.1 MG/DL (0.55-1.30) H Estimat Glomerular Filtration Rate 14.1 mL/min (>60) Glucose Level 143 MG/DL (74-106) H Calcium Level 8.7 MG/DL (8.5-10.1) Phosphorus Level 3.5 MG/DL (2.5-4.9) Magnesium Level 2.7 MG/DL (1.8-2.4) H Total Bilirubin 0.5 MG/DL (0.2-1.0) Aspartate Amino Transf (AST/SGOT) 18 U/L (15-37) Alanine Aminotransferase (ALT/SGPT) 19 U/L (12-78) Alkaline Phosphatase 88 U/L (46-116) Total Protein 5.1 G/DL (6.4-8.2) L Albumin 2.2 G/DL (3.4-5.0) L Globulin 2.9 g/dL Albumin/Globulin Ratio 0.8 (1.0-2.7) L Test 11/08/19 23:41 POC Whole Blood Glucose 155 MG/DL (74-106) H Assessment/Plan Assessment/Plan Hypertension/HHD - recovering hypertensive urgency Sinus tachycardia Renal failure Resolved lactic acidosis Respiratory failure Ac/chr diastolic CHF CRITICAL & GUARDED Titrating antiHTN regimen Trend BNP; monitor volume status Respiratory hygiene HD/UF following access placement Resume anti-coagulation ffollowing EGD and PEG John Coffman MD Nov 09, 2019 02:55
[2019-11-09 05:03] LABS: HEMOGLOBIN 8.9 G/DL (14.2-18.0); MEAN CORPUSCULAR VOLUME 102 FL (80-99); PLATELET COUNT 153 K/UL (150-450); RED BLOOD COUNT 2.94 M/UL (4.70-6.10); RED CELL DISTRIBUTION WIDTH 16.4 % (11.6-14.8); WHITE BLOOD COUNT 10.9 K/UL (4.8-10.8)
[2019-11-09 05:09] LABS: INR 1.1 (0.9-1.1)
[2019-11-09 05:22] LABS: ANION GAP 3 mmol/L (5-15); BLOOD UREA NITROGEN 71 mg/dL (7-18); CARBON DIOXIDE 33 MMOL/L (21-32); CHLORIDE 105 MMOL/L (98-107); CREATININE 4.2 MG/DL (0.55-1.30); POTASSIUM 4.7 MMOL/L (3.5-5.1); SODIUM 141 MMOL/L (136-145)
[2019-11-09] MEDS: NovoLOG Insulin Flexpen SUBQ SCH ×3 (05:49→17:13)
--- NOTE | 2019-11-09 06:34 | General Progress Note ---
Assessment/Plan Assessment/Plan: Covering Dr. Chang ASSESSMENT AND RECOMMENDATIONS: # Anemia of chronic disease due to underlying chronic medical issues, multifactorial --> Anemia w/u has been reviewed. --> no evidence of hemolysis is noted, peripheral smear has been reviewed --> hgb goal is >7, transfuse as needed --> currently remains stable, occult blood negative --> hgb 8.4->8.6->8.3->8->8.2->9.2-->9.2->8.9 --> some blood loss due to hematuria after inflated reyes pulled 8/6 am --> EPOGEN Started # Acute kidney injury r/o potential reversible component --> reviewed meds, those that are renally cleared removed --> as per renal recs, appreciated --> cr 3.5-->4.2 --> Hd started and dw renal # Hypertension, essential --> sbp goal is <140, consider anti-htn as needed --> currently started on hyralazine 25mg po q6h prn sbp >140 # CHF - hx of CHf --> diuresis with lasix as needed --> cardiology recs appreciated prior adm #. Leukocytosis with underlying infectionv stress reaction HISTORY --> per id and better --> for infection, ABX ctx/vanc-->off #. Bilateral lower extremity amputee, metatarsal several years ago #. Hyperkalemia -- kayxelate as needed #. Dvt ppx scds --> apixaban->off for catheter placement 11/07 The time the note was entered does not necessarily correspond to the time the patient was seen. GREATLY APPRECIATE CONSULTATION. Subjective HEENT: Denies: no symptoms, eye pain, blurred vision, tearing, double vision, ear pain, ear discharge, nose pain, nose congestion, throat pain, throat swelling, mouth pain, mouth swelling, other Cardiovascular: Denies: no symptoms, chest pain, edema, irregular heart rate, lightheadedness, palpitations, syncope, other Gastrointestinal/Abdominal: Denies: no symptoms, abdomen distended, abdominal pain, black stools, tarry stools, blood in stool, constipated, diarrhea, difficulty swallowing, nausea, poor appetite, poor fluid intake, rectal bleeding , vomiting, other Genitourinary: Denies: no symptoms, burning, discharge, frequency, flank pain, hematuria, incontinence, pain, urgency, other Neurologic/Psychiatric: Denies: no symptoms, anxiety, depressed, emotional problems, headache, numbness, paresthesia, pre-existing deficit, seizure, tingling, tremors, weakness, other Hematologic/Lymphatic: Denies: no symptoms, anemia, easy bleeding, easy bruising, other Allergies: Coded Allergies: PENICILLINS (Verified Allergy, Unknown, 10/25/19) tolerated Ceftriaxone Subjective 10/[address] Chang, to do best to avoid haldol, continue restraints, jag rn, on nc, feeling better 10/25 still with some agitation overnight, meds reviewed, jag rn, haldol given in AM 10/26 is on 2l nc, also is on restraints, no night sweats, no bleeding 10/27 reyes catheter has been removed by patient, and resinserted, bed sheets, with bright red blood on exam 10/28 labs are noted, no bleeding, cr is worse, seen by renal, remains edematous 11/04 no major changes, hd as per renal, recs are noted, labs reviewed, pending neuro eval 11/05 is on bipap with restraints, no major changes, no bleeding, labs noted 11/06 remains agitated, is off eliquis for catheter placement for tuesday 11/07 on bipap, remains agitated, jag salas, procedure today 11/08 remains confused, no bleeding, meds noted, hgb 8.9, may need peg Objective Last 24 Hour Vital Signs Date Time Temp Pulse Resp B/P (MAP) Pulse Ox O2 Delivery O2 Flow Rate FiO2 11/09/19 05:23 87 24 99 30 11/09/19 04:00 Nasal Cannula 4.0 Bi-pap 11/09/19 04:00 40 11/09/19 04:00 98.4 85 27 144/67 (92) 97 11/09/19 03:30 96 11/09/19 03:25 89 25 96 30 11/09/19 01:02 81 24 97 30 11/09/19 01:02 81 24 97 Bi-Pap 30 11/09/19 00:00 98.6 81 24 151/58 (89) 96 11/09/19 00:00 Nasal Cannula 4.0 Bi-pap 8/17/20 23:32 79 11/08/19 22:58 82 25 97 30 11/08/19 20:00 4.0 11/08/19 20:00 98.4 75 24 145/63 (90) 100 11/08/19 20:00 Nasal Cannula 4.0 Nasal Cannula 4.0 11/08/19 19:26 100 Nasal Cannula 3.0 32 11/08/19 19:03 74 11/08/19 17:28 73 132/57 11/08/19 16:00 4.0 11/08/19 16:00 98.5 73 19 132/57 (82) 100 11/08/19 16:00 Nasal Cannula 4.0 Nasal Cannula 4.0 11/08/19 16:00 72 11/08/19 12:00 73 11/08/19 12:00 4.0 11/08/19 12:00 Nasal Cannula 4.0 Nasal Cannula 4.0 11/08/19 12:00 97.7 69 17 132/51 (78) 98 11/08/19 11:36 76 24 4.0 11/08/19 11:05 76 24 4.0 11/08/19 10:42 76 24 4.0 11/08/19 08:36 78 159/61 11/08/19 08:00 4.0 11/08/19 08:00 97.5 78 23 159/61 (93) 100 11/08/19 08:00 82 11/08/19 08:00 Nasal Cannula 4.0 Nasal Cannula 4.0 11/08/19 07:02 99 Nasal Cannula 3.0 32 Intake and Output 11/08/19 11/09/19 19:00 07:00 Intake Total 1060 ml 280 ml Balance 1060 ml 280 ml Free Water 780 ml 80 ml Tube Feeding 280 ml 200 ml # Voids 3 Laboratory Tests 11/08/19 08:10: Prothrombin Time 11.7H, Prothromb Time International Ratio 1.1, Activated Partial Thromboplast Time 30, Sodium Level 144, Potassium Level 4.4, Chloride Level 106, Carbon Dioxide Level 36H, Anion Gap 2L, Blood Urea Nitrogen 65H, Creatinine 4.1H, Estimat Glomerular Filtration Rate 14.1, Glucose Level 143H, Calcium Level 8.7, Phosphorus Level 3.5, Magnesium Level 2.7H, Total Bilirubin 0.5, Aspartate Amino Transf (AST/SGOT) 18, Alanine Aminotransferase (ALT/SGPT) 19, Alkaline Phosphatase 88, Total Protein 5.1L, Albumin 2.2L, Globulin 2.9, Albumin/Globulin Ratio 0.8L 11/08/19 13:12: POC Whole Blood Glucose [Pending] 11/08/19 17:26: POC Whole Blood Glucose 154H 11/08/19 23:41: POC Whole Blood Glucose 155H 11/09/19 03:40: White Blood Count 10.9H, Red Blood Count 2.94L, Hemoglobin 8.9L, Hematocrit 30.0L, Mean Corpuscular Volume 102H, Mean Corpuscular Hemoglobin 30.2, Mean Corpuscular Hemoglobin Concent 29.7L, Red Cell Distribution Width 16.4H, Platelet Count 153, Mean Platelet Volume 7.1, Neutrophils (%) (Auto) , Lymphocytes (%) (Auto) , Monocytes (%) (Auto) , Eosinophils (%) (Auto) , Basophils (%) (Auto) , Prothrombin Time 11.6H, Prothromb Time International Ratio 1.1, Sodium Level 141, Potassium Level 4.7, Chloride Level 105, Carbon Dioxide Level 33H, Anion Gap 3L, Blood Urea Nitrogen 71H, Creatinine 4.2H, Estimat Glomerular Filtration Rate 13.7, Glucose Level 156H, Calcium Level 9.0 11/09/19 05:32: POC Whole Blood Glucose 163H Height (Feet): 5 Height (Inches): 8.00 Weight (Pounds): 209 Objective GENERAL: Not in acute distress. PULMONARY: Decreased breath sounds. ++ bipap +ngt CARDIOVASCULAR: Regular rate. No S3 or S4. ABDOMEN: Soft, nontender, nondistended. EXTREMITIES: 1+ edema. No cyanosis, swelling, or edema. 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 Melvin Rizzo MD Nov 09, 2019 06:34
--- NOTE | 2019-11-09 07:12 | Infectious Diseases Prog Note ---
Assessment/Plan 79yo M from [facility] who p/w hypoglycemia and resp failure: Acute hypoxic respiratory failure, on BiPAP > 2L NC> RA > 2L NC Rapid COVID neg x2 (10/21, 10/24) Pneumonia on CXR Volume overload 10/30 CXR: Slightly improved 10/25 CXR: Bilateral alveolar densities are unchanged 10/24 Sp cx normal resp demario (prelim) 10/23 CXR: 1. Small layering right pleural effusion, not significantly changed. The previously noted small left pleural effusion is not as evident.Prominent lung markings and haziness, right greater left, which may be related to pulmonary vascular congestion versus pneumonitis. This is not significantly changed.. Subsegmental atelectasis versus infiltrate in the medial left lung base, also not significantly changed. 10/21 CXR: 1. Small bilateral pleural effusions. Bibasilar atelectasis versus pneumonia. 2. Prominent lung markings and hazy opacities in right greater than left lungs may represent artifact versus pulmonary vasculature congestion and edema versus infectious/inflammatory process. 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 10/31 No clear clinical correlate to this imaging finding, s/p 7 days of CTX which is good abx for mastoiditis Hypercapnia, on BiPAP, improving Afebrile No leukocytosis Anemia to 6.8, improved UA neg, UCx neg R/o bacteremia 10/21 BCx NTD ALEXIS on CKD, worsening --> now on HD HBsAg neg Plan: Cont to monitor off abx, s/p 7d of abx for pna, but this also covered for possible mastoiditis ENT to evaluate ears/TMs for signs of underlying mastoiditis, as seen on CT head ; would appreciate the evaluation as pt unable to tell us if he has ear pain/DE LEON , etc; if unable to obtain in house, OK for pt to have outpt ENT f/u for evaluation given that pt has remained AF wo s/sx of ear infection here, and there is no pain on ear exam here (though unable to fully evaluate the inner ears) 11/07 Clindamycin x1 for catheter placement 10/31 SP CTX #7 10/26 SP vancomycin IV #5 Trend resp status Monitor CBC, CMP D/w RN Thank you for this consult. [facility] will continue to follow. Subjective Allergies: Coded Allergies: PENICILLINS (Verified Allergy, Unknown, 10/25/19) tolerated Ceftriaxone AF 3L NC S/p dose of clindamycin yesterday for HD cath placement Objective Last 24 Hour Vital Signs Date Time Temp Pulse Resp B/P (MAP) Pulse Ox O2 Delivery O2 Flow Rate FiO2 11/09/19 07:02 100 Nasal Cannula 3.0 32 11/09/19 05:23 87 24 99 30 11/09/19 04:00 Nasal Cannula 4.0 Bi-pap 11/09/19 04:00 40 11/09/19 04:00 98.4 85 27 144/67 (92) 97 11/09/19 03:30 96 11/09/19 03:25 89 25 96 30 11/09/19 01:02 81 24 97 30 11/09/19 01:02 81 24 97 Bi-Pap 30 11/09/19 00:00 98.6 81 24 151/58 (89) 96 11/09/19 00:00 Nasal Cannula 4.0 Bi-pap 11/08/19 23:32 79 11/08/19 22:58 82 25 97 30 11/08/19 20:00 4.0 11/08/19 20:00 98.4 75 24 145/63 (90) 100 11/08/19 20:00 Nasal Cannula 4.0 Nasal Cannula 4.0 11/08/19 19:26 100 Nasal Cannula 3.0 32 11/08/19 19:03 74 11/08/19 17:28 73 132/57 11/08/19 16:00 4.0 11/08/19 16:00 98.5 73 19 132/57 (82) 100 11/08/19 16:00 Nasal Cannula 4.0 Nasal Cannula 4.0 11/08/19 16:00 72 11/08/19 12:00 73 11/08/19 12:00 4.0 11/08/19 12:00 Nasal Cannula 4.0 Nasal Cannula 4.0 11/08/19 12:00 97.7 69 17 132/51 (78) 98 11/08/19 11:36 76 24 4.0 11/08/19 11:05 76 24 4.0 11/08/19 10:42 76 24 4.0 11/08/19 08:36 78 159/61 11/08/19 08:00 4.0 11/08/19 08:00 97.5 78 23 159/61 (93) 100 11/08/19 08:00 82 11/08/19 08:00 Nasal Cannula 4.0 Nasal Cannula 4.0 Height (Feet): 5 Height (Inches): 4.00 Weight (Pounds): 206 Gen: Older man, NAD in bed, getting HD CV: RRR Pulm: CTAB anteriorly on NC Abd: Soft, NTND Neuro: Eyes open slightly to voice Laboratory Tests Test 11/08/19 08:10 11/08/19 13:12 11/08/19 17:26 11/08/19 23:41 Prothrombin Time 11.7 SEC (9.30-11.50) H Prothromb Time International Ratio 1.1 (0.9-1.1) Activated Partial Thromboplast Time 30 SEC (23-33) Sodium Level 144 MMOL/L (136-145) Potassium Level 4.4 MMOL/L (3.5-5.1) Chloride Level 106 MMOL/L (98-107) Carbon Dioxide Level 36 MMOL/L (21-32) H Anion Gap 2 mmol/L (5-15) L Blood Urea Nitrogen 65 mg/dL (7-18) H Creatinine 4.1 MG/DL (0.55-1.30) H Estimat Glomerular Filtration Rate 14.1 mL/min (>60) Glucose Level 143 MG/DL (74-106) H Calcium Level 8.7 MG/DL (8.5-10.1) Phosphorus Level 3.5 MG/DL (2.5-4.9) Magnesium Level 2.7 MG/DL (1.8-2.4) H Total Bilirubin 0.5 MG/DL (0.2-1.0) Aspartate Amino Transf (AST/SGOT) 18 U/L (15-37) Alanine Aminotransferase (ALT/SGPT) 19 U/L (12-78) Alkaline Phosphatase 88 U/L (46-116) Total Protein 5.1 G/DL (6.4-8.2) L Albumin 2.2 G/DL (3.4-5.0) L Globulin 2.9 g/dL Albumin/Globulin Ratio 0.8 (1.0-2.7) L POC Whole Blood Glucose Pending 154 MG/DL (74-106) H 155 MG/DL (74-106) H Test 11/09/19 03:40 11/09/19 05:32 White Blood Count 10.9 K/UL (4.8-10.8) H Red Blood Count 2.94 M/UL (4.70-6.10) L Hemoglobin 8.9 G/DL (14.2-18.0) L Hematocrit 30.0 % (42.0-52.0) L Mean Corpuscular Volume 102 FL (80-99) H Mean Corpuscular Hemoglobin 30.2 PG (27.0-31.0) Mean Corpuscular Hemoglobin Concent 29.7 G/DL (32.0-36.0) L Red Cell Distribution Width 16.4 % (11.6-14.8) H Platelet Count 153 K/UL (150-450) Mean Platelet Volume 7.1 FL (6.5-10.1) Neutrophils (%) (Auto) % (45.0-75.0) Lymphocytes (%) (Auto) % (20.0-45.0) Monocytes (%) (Auto) % (1.0-10.0) Eosinophils (%) (Auto) % (0.0-3.0) Basophils (%) (Auto) % (0.0-2.0) Prothrombin Time 11.6 SEC (9.30-11.50) H Prothromb Time International Ratio 1.1 (0.9-1.1) Sodium Level 141 MMOL/L (136-145) Potassium Level 4.7 MMOL/L (3.5-5.1) Chloride Level 105 MMOL/L (98-107) Carbon Dioxide Level 33 MMOL/L (21-32) H Anion Gap 3 mmol/L (5-15) L Blood Urea Nitrogen 71 mg/dL (7-18) H Creatinine 4.2 MG/DL (0.55-1.30) H Estimat Glomerular Filtration Rate 13.7 mL/min (>60) Glucose Level 156 MG/DL (74-106) H Calcium Level 9.0 MG/DL (8.5-10.1) POC Whole Blood Glucose 163 MG/DL (74-106) H Current Medications Medications (Trade) Dose Ordered Sig/Cammy Route PRN Reason Start Time Stop Time Status Last Admin Dose Admin Acetaminophen (Tylenol) 650 mg Q4H PRN ORAL Mild Pain (Pain Scale 1-3) 11/09/19 07:15 UNV Acetaminophen (Tylenol) 650 mg Q6H PRN NG Pain 3-5 11/03/19 11:15 12/02/19 11:14 Al Hydroxide/Mg Hydroxide (Mylanta) 15 ml Q1H PRN ORAL gi upset 11/09/19 07:15 UNV Amlodipine Besylate (Norvasc) 5 mg BID NG 11/03/19 18:00 11/25/19 08:59 11/08/19 17:28 Atorvastatin Calcium (Lipitor) 10 mg BEDTIME NG 11/03/19 21:00 01/21/20 20:59 11/08/19 20:26 Atropine Sulfate (Atropine) 0.5 mg Q5M PRN IV bpm less than 45 11/09/19 07:15 UNV Chlorhexidine Gluconate (Yi-Hex 2%) 1 applic DAILY@1999 TOPIC 11/03/19 20:00 01/31/20 19:59 11/08/19 20:26 Dextrose (Dextrose 50%) 25 ml Q30M PRN IV Hypoglycemia 11/03/19 11:15 01/20/20 21:44 Dextrose (Dextrose 50%) 50 ml Q30M PRN IV Hypoglycemia 11/03/19 11:15 01/20/20 21:44 Diphenhydramine HCl (Benadryl) 25 mg Q15M PRN IVP Itching 11/09/19 07:15 UNV Docusate Sodium (Colace) 100 mg THREE TIMES A DAY NG 11/03/19 13:00 12/02/19 17:59 11/08/19 17:28 Epoetin William (Epoetin William(ESRD on dialysis)) 10,000 unit FRI-FRI-FRI SUBQ 11/03/19 21:00 02/01/20 20:59 11/08/19 20:26 Fentanyl Citrate (Sublimaze 100 mcg/2 mL) 25 mcg Q10M PRN IV Moderate Pain (Pain Scale 4-6) 11/09/19 07:15 UNV Haloperidol (Haldol) 5 mg Q12H PRN NG Agitation 11/03/19 11:15 12/17/19 11:14 Haloperidol Lactate (Haldol) 5 mg Q6H PRN IM Agitation 11/03/19 11:15 12/10/19 11:14 Hydralazine HCl (Apresoline) 5 mg Q30M PRN IV SBP>160 OR___/DBP>90 OR___ 11/09/19 07:15 UNV Hydralazine HCl (Apresoline) 10 mg Q4H PRN IV For High Blood Pressure 11/03/19 11:15 01/24/20 11:14 Insulin Aspart (NovoLOG) Q6HR SUBQ 11/06/19 06:00 01/31/20 06:29 11/09/19 05:49 Lactulose (Cephulac) 10 gm BID NG 11/03/19 18:00 12/01/19 08:59 11/08/19 17:28 Levothyroxine Sodium (Synthroid) 75 mcg DAILY@0630 ORAL 11/04/19 06:30 12/04/19 06:29 11/09/19 05:47 Midazolam HCl (Versed 2mg/2ml vial) 1 mg Q15M PRN IVP For Anxiety 11/09/19 07:15 UNV Pantoprazole (Protonix) 40 mg EVERY 12 HOURS IVP 11/03/19 21:00 11/22/19 08:59 11/08/19 20:26 Polyethylene Glycol (Miralax) 17 gm BEDTIME NG 11/03/19 21:00 12/01/19 20:59 11/08/19 20:27 Sennosides (Senokot) 8.6 mg HSPRN PRN NG Constipation 11/03/19 16:15 12/02/19 16:14 Sevelamer Carbonate (Renvela) 1,600 mg THREE TIMES A DAY NG 11/03/19 13:00 01/21/20 17:59 11/08/19 17:28 Sodium Chloride 1,000 ml @ 10 mls/hr Q24H IVLG 11/09/19 07:08 11/09/19 09:07 Mckenna Godoy M.D. Nov 09, 2019 07:12
[2019-11-09] MEDS ORDERED: fentaNYL 100 mcg/2 mL IV PRN (07:15)
[2019-11-09] MEDS ORDERED: Midazolam 2mg/2ml Inj IVP PRN (07:15)
[2019-11-09] MEDS ORDERED: Atropine Inj 1mg/10ml Syr IV PRN (07:15)
[2019-11-09] MEDS ORDERED: DiphenhydrAMINE 50mg/ml Inj IVP PRN (07:15)
--- NOTE | 2019-11-09 07:18 | Anethesia Preoperative Eval ---
Anesthesia Pre-op PMH/ROS General Date of Evaluation: Nov 09, 2019 Time of Evaluation: 07:11 Anesthesiologist: broderick ASA Score: ASA 4 Mallampati Score Class I : Soft palate, uvula, fauces, pillars visible Class II: Soft palate, uvula, fauces visible Class III: Soft palate, base of uvula visible Class IV: Only hard plate visible Mallampati Classification: Class II Surgeon: mariano Diagnosis: dysphagia Surgical Procedure: peg Anesthesia History: none Family History: no anesthesia problems Allergies: Coded Allergies: PENICILLINS (Verified Allergy, Unknown, 10/25/19) tolerated Ceftriaxone Medications: see eMAR Patient NPO?: Yes Past Medical History Cardiovascular: Reports: HTN, other - chf, Pulmonary: Reports: other - bipap, pneumonia, pleural effusion, Gastrointestinal/Genitourinary: Reports: other - arf on crf, cholelithiasis, Neurologic/Psychiatric: Reports: depression/anxiety, other - metabolic encephalopathy, ams, Endocrine: Reports: DM Musculoskeletal/Integumentary: Reports: other - cellulitis of foot, osteomyelitis, bilateral metatarsal amputation Anesthesia Pre-op Phys. Exam Physician Exam Last Vital Signs Date Time Temp Pulse Resp B/P (MAP) Pulse Ox O2 Delivery O2 Flow Rate FiO2 11/09/19 07:02 100 Nasal Cannula 3.0 32 11/09/19 05:23 87 24 11/09/19 04:00 98.4 144/67 (92) Constitutional: NAD Neurologic: CN 2-12 intact Cardiovascular: RRR Respiratory: CTA Gastrointestinal: S/NT/ND Airway Exam Mallampati Score: Class II MO: limited Neck: short TMD: 2fb ROM: limited Teeth: missing Anesthesia Pre-op A/P Labs Microbiology Date/Time Source Procedure Growth Status 10/22/19 16:45 Blood Blood Culture - Final NO GROWTH AFTER 5 DAYS Complete 10/25/19 09:00 Nasopharynx SARS-CoV-2 RdRp Gene Assay - Final Complete 10/22/19 17:00 Urine,Clean Catch Urine Culture - Final NO GROWTH AFTER 48 HOURS Complete 10/22/19 18:00 Rectum - Final NO CARBAPENEM-RESISTANT ENTEROBACTERI... Complete Hematology Test 11/09/19 03:40 White Blood Count 10.9 K/UL (4.8-10.8) H Red Blood Count 2.94 M/UL (4.70-6.10) L Hemoglobin 8.9 G/DL (14.2-18.0) L Hematocrit 30.0 % (42.0-52.0) L Mean Corpuscular Volume 102 FL (80-99) H Mean Corpuscular Hemoglobin 30.2 PG (27.0-31.0) Mean Corpuscular Hemoglobin Concent 29.7 G/DL (32.0-36.0) L Red Cell Distribution Width 16.4 % (11.6-14.8) H Platelet Count 153 K/UL (150-450) Mean Platelet Volume 7.1 FL (6.5-10.1) Neutrophils (%) (Auto) % (45.0-75.0) Lymphocytes (%) (Auto) % (20.0-45.0) Monocytes (%) (Auto) % (1.0-10.0) Eosinophils (%) (Auto) % (0.0-3.0) Basophils (%) (Auto) % (0.0-2.0) Coagulation Test 11/08/19 08:10 11/09/19 03:40 Prothrombin Time 11.7 SEC (9.30-11.50) H 11.6 SEC (9.30-11.50) H Prothromb Time International Ratio 1.1 (0.9-1.1) 1.1 (0.9-1.1) Activated Partial Thromboplast Time 30 SEC (23-33) Chemistry Test 11/08/19 08:10 11/08/19 13:12 11/08/19 17:26 11/08/19 23:41 Sodium Level 144 MMOL/L (136-145) Potassium Level 4.4 MMOL/L (3.5-5.1) Chloride Level 106 MMOL/L (98-107) Carbon Dioxide Level 36 MMOL/L (21-32) H Anion Gap 2 mmol/L (5-15) L Blood Urea Nitrogen 65 mg/dL (7-18) H Creatinine 4.1 MG/DL (0.55-1.30) H Estimat Glomerular Filtration Rate 14.1 mL/min (>60) Glucose Level 143 MG/DL (74-106) H Calcium Level 8.7 MG/DL (8.5-10.1) Phosphorus Level 3.5 MG/DL (2.5-4.9) Magnesium Level 2.7 MG/DL (1.8-2.4) H Total Bilirubin 0.5 MG/DL (0.2-1.0) Aspartate Amino Transf (AST/SGOT) 18 U/L (15-37) Alanine Aminotransferase (ALT/SGPT) 19 U/L (12-78) Alkaline Phosphatase 88 U/L (46-116) Total Protein 5.1 G/DL (6.4-8.2) L Albumin 2.2 G/DL (3.4-5.0) L Globulin 2.9 g/dL Albumin/Globulin Ratio 0.8 (1.0-2.7) L POC Whole Blood Glucose Pending 154 MG/DL (74-106) H 155 MG/DL (74-106) H Test 11/09/19 03:40 11/09/19 05:32 Sodium Level 141 MMOL/L (136-145) Potassium Level 4.7 MMOL/L (3.5-5.1) Chloride Level 105 MMOL/L (98-107) Carbon Dioxide Level 33 MMOL/L (21-32) H Anion Gap 3 mmol/L (5-15) L Blood Urea Nitrogen 71 mg/dL (7-18) H Creatinine 4.2 MG/DL (0.55-1.30) H Estimat Glomerular Filtration Rate 13.7 mL/min (>60) Glucose Level 156 MG/DL (74-106) H Calcium Level 9.0 MG/DL (8.5-10.1) POC Whole Blood Glucose 163 MG/DL (74-106) H Risk Assessment & Plan Assessment: asa4 Plan: mac Status Change Before Surgery: No Pre-Antibiotics Drug: clindamycin Given Within 1 Hr of Incision: Yes Time Given: 14:00 Mana Forte MD Nov 09, 2019 07:18
[2019-11-09] MEDS: Pantoprazole Inj IVP SCH ×2 (08:27→20:28)
--- NOTE | 2019-11-09 08:30 | Progress Note ---
DATE: 11/09/2019 SUBJECTIVE: The patient is in bed, no acute distress noted. He still has episodes of agitation. Still requires as needed medication, still needs BiPAP. The patient is confused, disoriented, unable to make decisions. MENTAL STATUS EXAMINATION: Alert and oriented times self. Mood is agitated. Affect is flat. Thought process is concrete. Thought content, no suicidal or homicidal ideation. Cognition is impaired. Insight and judgment impaired. ASSESSMENT: Dementia with behavior disturbance. PLAN: 1. Haldol IM as needed. 2. Discussed with the staff. Dada Finch M.D. DR: Casa JOB#: [id number] CC:
[2019-11-09] MEDS: Docusate 100mg/10ml Liq NG SCH ×3 (08:41→17:19)
[2019-11-09] MEDS: Lactulose 10gm/15ml UDC NG SCH ×2 (08:41→17:25)
[2019-11-09] MEDS: Renvela 800mg Pkt NG SCH ×3 (08:42→17:25)
--- NOTE | 2019-11-09 09:31 | Pulmonology Progress Note ---
Reema Hanna SENIOR FORMULATION SCIENTIST 11/09/19 0931: Subjective ROS Limited/Unobtainable: No Allergies: Coded Allergies: PENICILLINS (Verified Allergy, Unknown, 10/25/19) tolerated Ceftriaxone All Systems: reviewed and negative except above Subjective s/p perm HD catheter placement 11/07 afebrile on 3l O2 via NC BiPAP at HS no signs of resp distress awaiting for consent for EGD and PEG placement Objective Last 24 Hour Vital Signs Date Time Temp Pulse Resp B/P (MAP) Pulse Ox O2 Delivery O2 Flow Rate FiO2 11/09/19 08:42 87 150/59 11/09/19 07:02 100 Nasal Cannula 3.0 32 11/09/19 05:23 87 24 99 30 11/09/19 04:00 Nasal Cannula 4.0 Bi-pap 11/09/19 04:00 40 11/09/19 04:00 98.4 85 27 144/67 (92) 97 11/09/19 03:30 96 11/09/19 03:25 89 25 96 30 11/09/19 01:02 81 24 97 30 11/09/19 01:02 81 24 97 Bi-Pap 30 11/09/19 00:00 98.6 81 24 151/58 (89) 96 11/09/19 00:00 Nasal Cannula 4.0 Bi-pap 11/08/19 23:32 79 11/08/19 22:58 82 25 97 30 11/08/19 20:00 4.0 11/08/19 20:00 98.4 75 24 145/63 (90) 100 11/08/19 20:00 Nasal Cannula 4.0 Nasal Cannula 4.0 11/08/19 19:26 100 Nasal Cannula 3.0 32 11/08/19 19:03 74 11/08/19 17:28 73 132/57 11/08/19 16:00 4.0 11/08/19 16:00 98.5 73 19 132/57 (82) 100 11/08/19 16:00 Nasal Cannula 4.0 Nasal Cannula 4.0 11/08/19 16:00 72 11/08/19 12:00 73 11/08/19 12:00 4.0 11/08/19 12:00 Nasal Cannula 4.0 Nasal Cannula 4.0 11/08/19 12:00 97.7 69 17 132/51 (78) 98 8/17/20 11:36 76 24 4.0 11/08/19 11:05 76 24 4.0 11/08/19 10:42 76 24 4.0 Intake and Output 11/08/19 11/09/19 19:00 07:00 Intake Total 1060 ml 280 ml Balance 1060 ml 280 ml Free Water 780 ml 80 ml Tube Feeding 280 ml 200 ml # Voids 3 Objective General Appearance: no apparent distress, Guyanese speaking confused male, Lines, tubes and drains: R chest tunneled HD catheter HEENT: normocephalic, atraumatic, anicteric, mucous membranes moist, O2 3 L via NC, NGT Respiratory/Chest: few scattered crackles, no exp wheezing, Cardiovascular/Chest: normal rate, regular rhythm Abdomen: normal bowel sounds, non tender, soft Extremities: partially amputated BL foot/metatarsal Skin Exam: warm/dry Neurologic: abnormal gait, not much responsive, Musculoskeletal: atrophy BLE Laboratory Tests 11/08/19 13:12: POC Whole Blood Glucose [Pending] 11/08/19 17:26: POC Whole Blood Glucose 154H 11/08/19 23:41: POC Whole Blood Glucose 155H 11/09/19 03:40: White Blood Count 10.9H, Red Blood Count 2.94L, Hemoglobin 8.9L, Hematocrit 30.0L, Mean Corpuscular Volume 102H, Mean Corpuscular Hemoglobin 30.2, Mean Corpuscular Hemoglobin Concent 29.7L, Red Cell Distribution Width 16.4H, Platelet Count 153, Mean Platelet Volume 7.1, Neutrophils (%) (Auto) , Lymphocytes (%) (Auto) , Monocytes (%) (Auto) , Eosinophils (%) (Auto) , Basophils (%) (Auto) , Prothrombin Time 11.6H, Prothromb Time International Ratio 1.1, Sodium Level 141, Potassium Level 4.7, Chloride Level 105, Carbon Dioxide Level 33H, Anion Gap 3L, Blood Urea Nitrogen 71H, Creatinine 4.2H, Estimat Glomerular Filtration Rate 13.7, Glucose Level 156H, Calcium Level 9.0 11/09/19 05:32: POC Whole Blood Glucose 163H Current Medications Medications (Trade) Dose Ordered Sig/Cammy Route PRN Reason Start Time Stop Time Status Last Admin Dose Admin Acetaminophen (Tylenol) 650 mg Q4H PRN ORAL Mild Pain (Pain Scale 1-3) 11/09/19 07:15 11/09/19 16:00 Acetaminophen (Tylenol) 650 mg Q6H PRN NG Pain 3-5 11/03/19 11:15 12/02/19 11:14 Al Hydroxide/Mg Hydroxide (Mylanta) 15 ml Q1H PRN ORAL gi upset 11/09/19 07:15 11/09/19 16:00 Amlodipine Besylate (Norvasc) 5 mg BID NG 11/03/19 18:00 11/25/19 08:59 11/08/19 17:28 Atorvastatin Calcium (Lipitor) 10 mg BEDTIME NG 11/03/19 21:00 01/21/20 20:59 11/08/19 20:26 Atropine Sulfate (Atropine) 0.5 mg Q5M PRN IV bpm less than 45 11/09/19 07:15 11/09/19 16:00 Chlorhexidine Gluconate (Yi-Hex 2%) 1 applic DAILY@2000 TOPIC 11/03/19 20:00 01/31/20 19:59 11/08/19 20:26 Dextrose (Dextrose 50%) 25 ml Q30M PRN IV Hypoglycemia 11/03/19 11:15 01/20/20 21:44 Dextrose (Dextrose 50%) 50 ml Q30M PRN IV Hypoglycemia 11/03/19 11:15 01/20/20 21:44 Diphenhydramine HCl (Benadryl) 25 mg Q15M PRN IVP Itching 11/09/19 07:15 11/09/19 16:00 Docusate Sodium (Colace) 100 mg THREE TIMES A DAY NG 11/03/19 13:00 12/02/19 17:59 11/08/19 17:28 Epoetin William (Epoetin William(ESRD on dialysis)) 10,000 unit FRI-FRI-FRI SUBQ 11/03/19 21:00 02/01/20 20:59 11/08/19 20:26 Fentanyl Citrate (Sublimaze 100 mcg/2 mL) 25 mcg Q10M PRN IV Moderate Pain (Pain Scale 4-6) 11/09/19 07:15 11/09/19 16:00 Haloperidol (Haldol) 5 mg Q12H PRN NG Agitation 11/03/19 11:15 12/17/19 11:14 Haloperidol Lactate (Haldol) 5 mg Q6H PRN IM Agitation 11/03/19 11:15 12/10/19 11:14 Hydralazine HCl (Apresoline) 5 mg Q30M PRN IV SBP>160 OR___/DBP>90 OR___ 11/09/19 07:15 11/09/19 16:00 Hydralazine HCl (Apresoline) 10 mg Q4H PRN IV For High Blood Pressure 11/03/19 11:15 01/24/20 11:14 Insulin Aspart (NovoLOG) Q6HR SUBQ 11/06/19 06:00 01/31/20 06:29 11/09/19 05:49 Lactulose (Cephulac) 10 gm BID NG 11/03/19 18:00 12/01/19 08:59 11/08/19 17:28 Levothyroxine Sodium (Synthroid) 75 mcg DAILY@0630 ORAL 11/04/19 06:30 12/04/19 06:29 11/09/19 05:47 Midazolam HCl (Versed 2mg/2ml vial) 1 mg Q15M PRN IVP For Anxiety 11/09/19 07:15 11/09/19 16:00 Pantoprazole (Protonix) 40 mg EVERY 12 HOURS IVP 11/03/19 21:00 11/22/19 08:59 11/09/19 08:27 Polyethylene Glycol (Miralax) 17 gm BEDTIME NG 11/03/19 21:00 12/01/19 20:59 11/08/19 20:27 Sennosides (Senokot) 8.6 mg HSPRN PRN NG Constipation 11/03/19 16:15 12/02/19 16:14 Sevelamer Carbonate (Renvela) 1,600 mg THREE TIMES A DAY NG 11/03/19 13:00 01/21/20 17:59 11/08/19 17:28 Sodium Chloride 1,000 ml @ 10 mls/hr Q24H IVLG 11/09/19 07:08 11/09/19 16:00 Assessment/Plan Assessment/Plan ASSESSMENT Acute hypoxemic hypercapnic respiratory failure requiring BiPAP Acute metabolic encephalopathy likely due to hypoglycemia Diabetes mellitus with initial hypoglycemia Probably pneumonia Aspiration risk Dysphagia Acute kidney injury on chronic kidney disease, requiring start of HD 10/30 Severe anemia requiring blood transfusion Metabolic acidosis Electrolyte imbalance :hyponatremia, hyperkalemia HTN with HTN urgency Dysphagia Hematuria 2 to pt pulled off his Lyles catheter Possibly DAYANA [employer]AN OF C[employer] TOYIN BiPAP at HS and prn currently on O2 3 L via NC titrate O2, pulm toilet patient likely has DAYANA. recommend sleep study as OP CXR 11/02 -> Stable slightly increased bilateral pleural effusions. Otherwise little loom changer 3 days 10/21 and 10/24 rapid COVID NGT, abx as per ID recs -> Ceftriaxone , completed 10/30 ; s/p Vanco , completed Rx for PNA 7 days, remains afebrile no leucocytosis BCX 10/21 NGTD UCX NGT SCX if able Venous Duplex BLE 10/25 -> NGT CT head revealed bilateral mastoid disease; a new finding ID recommended ENT eval- pending- per primary team on HD- started 10/30 renal US ->Mildly atrophic kidneys. No hydronephrosis or nephrolithiasis. monitor volumes, renal parameters, lytes, correct as needed fup with nephro recs s/p placement of permanent HD catheter R chest 11/07 ECHO with pEF 55-60% on chronic a/c swallow eval with aspiration risk diet texture as per ST recs with strict asp precautions and assistance with meals now NGT repeat BSSE 11/04 -> failed, recommended nonoral feeding started on NGT feeding strict aspiration precautions need G tube-, GI follows consent pending AMS 10/[address] head negative, off sedatives ammonia WNL NGT inserted for meds as per nephro recs NEED NEURO EVAL-per primary AMS somewhat improving to baseline HgA1c -6.1 hold oral anti-glycemic SSI prn sensitive initial AMS was most likely due to episode of hypoglycemia CT head NGT for acute ICP -done x 2 BP management with CCB and Hydralazine prn for BP spikes monitor HH with goal to keep Hgb above 7 stool OB anemia w/up noted , heme on board s/p 1 dose of Venofer on EPO hematuria resolved, Hgb at baseline GI prophayxlis supportive care WILL NEED HOME TRILOGY VENT TO BE ARRANGED ON DISCHARGE case management aware, work in progress case discussed and evaluated by supervising physician Jonathon Pabon MD 11/09/19 1147: Subjective Allergies: Coded Allergies: PENICILLINS (Verified Allergy, Unknown, 10/25/19) tolerated Ceftriaxone Assessment/Plan Assessment/Plan Patient seen and examined with SENIOR FORMULATION SCIENTIST. Agree with above A&P as it reflects our joint deliberations. Reema Hanna NP Nov 09, 2019 09:31 Jonathon Pabon MD Nov 09, 2019 11:47
[2019-11-09] MEDS ORDERED: Cathflo Alteplase 2mg Inj INJ ONE (11:45)
--- NOTE | 2019-11-09 12:19 | Pre-Procedure Note/Attestation ---
Pre-Procedure Note/Attestation Complete Prior to Procedure Planned Procedure: not applicable Procedure Narrative: egd/peg Indications for Procedure Pre-Operative Diagnosis: dysphagia Attestation I attest that I discussed the nature of the procedure; its benefits; risks and complications; and alternatives (and the risks and benefits of such alternatives ), prior to the procedure, with the patient (or the patient's legal senior sales representative). I attest that, if there was a reasonable possibility of needing a blood transfusion, the patient (or the patient's legal senior sales representative) was given the [facility] standardized written summary, pursuant to the [place]t [place] Blood Safety Act ([place] Health and Safety Code # 1645, as amended). I attest that I re-evaluated the patient just prior to the surgery and that there has been no change in the patient's H&P, except as documented below: Lawrence Humphreys MD Nov 09, 2019 12:19
[2019-11-09] MEDS ORDERED: Clindamycin 600mg 50 ML IV SCH (13:30)
--- NOTE | 2019-11-09 13:34 | Nephrology Progress Note ---
Assessment/Plan Problem List: (1) Renal failure (ARF), acute on chronic (2) Metabolic acidosis (3) Electrolyte imbalance Assessment: Hyponatremia and hyperkalemia (4) Anemia (5) CHF (congestive heart failure) Assessment 79-year-old male is admitted for hypoglycemia Patient has renal failure which appears to be acute on chronic Hyperkalemia Hyponatremia CHF, pleural effusion, pneumonia Anemia Metabolic acidosis Hypothyroidism Plan November 08: Dialysis attempted through the permacath which was put in yesterday by IR. Due to high catheter pressure , dialysis was held and PTAse administered. Dialysis will be tried again tomorrow. Will check labs tomorrow. November 07: Patient due for tunneled catheter insertion today. Will order dialysis tomorrow. Continue to monitor renal parameters. Labs and medications reviewed. November 06: Patient due for tunnel catheter insertion November 07. Serum creatinine is rising. Labs reviewed. Continue per consultants. November 05: Last dialysis November 03. Eliquis on hold. Due tunneled catheter insertion on November 07. Labs are reviewed. Continue current management. November 04: Dialyzed yesterday. Due for insertion of tunneled catheter today. May need to hold Eliquis and reschedule catheter insertion on Friday. Will monitor renal parameters in the meantime. November 03: Dialyzed this morning. Stable from renal standpoint of view. Due for insertion of tunneled catheter tomorrow. November 02: Dialyzed yesterday. Will DC IV fluid. Dialysis tomorrow. Potassium supplement given. Per orders. November 01: Patient currently being dialyzed. Tolerating well. Labs will be reviewed. Continue per consultants. October 31: Patient was dialyzed yesterday. Clinically doing better. We will continue to monitor renal parameters. Dialysis as needed. October 30: Serum creatinine rising. Patient due to have a temporary dialysis catheter and due for dialysis today. Will continue to follow-up renal parameters. Patient remains full code. October 29: Serum creatinine rising. Serum creatinine 4.5 today. Calculated creatinine clearance is 12. Kidney ultrasound ordered yesterday results were reviewed. Patient appears to have acute renal failure due to underlying sepsis and nephrotoxic medications. Patient requires dialysis treatment. Ordered to obtain consent from the responsible libertarian. Will communicate with PMD and or he is coverage. October 28: Serum creatinine higher to 4.2 today. Blood pressure appears more stable. In view of worsening renal failure, will order stat kidney ultrasound and urine studies. Continue to monitor renal parameters. Patient is full code. Worsening renal parameters may lead to hemodialysis treatment. October 27: Patient pulled out the Lyles catheter. Serum creatinine went up to 3.8. Blood pressure somewhat low. Heart rate in 50s. Will discontinue Coreg. We will continue to monitor renal parameters. October 26: Serum creatinine lower again today. Will abort the dialysis plan. Continue per consultants. Continue to monitor renal parameters. Medication list reviewed. October 25: Clinically improving. Serum creatinine lower. Urine output increased. No dialysis planned at this time. Continue per consultants. October 24: Patient's respiratory status somewhat improved. Serum creatinine down to 3.9. Urinary output somewhat increased. Will hold placement of dialysis catheter at this time. Blood pressure medication adjusted. Continue to monitor renal parameters. Per orders. October 23: Patient remains on BiPAP. More Kayexalate ordered. Will consider hemodialysis to correct fluid overload and hyperkalemia and acidosis. Will discuss with PMD. Meanwhile IV Synthroid started. Discussed with RN Timothy Patient already transfused 1 unit for severe anemia previously Will initiate Epogen 10,000 units subcutaneously 1 dose of IV iron Venofer 200 g IV Kayexalate for hyperkalemia as needed 2D echocardiogram ordered, ejection fraction is reported normal Kidney ultrasound ordered: Kidneys: Right kidney measures 9.1 cm in length. No hydronephrosis or stone. Left kidney not visualized due to patient's body habitus. Avoid nephrotoxic's Monitor renal parameters Will hold insulin and hypoglycemic agents until hypoglycemia is reasonably resolved Subjective ROS Limited/Unobtainable: Yes Objective Objective Last 24 Hour Vital Signs Date Time Temp Pulse Resp B/P (MAP) Pulse Ox O2 Delivery O2 Flow Rate FiO2 11/09/19 12:00 4.0 11/09/19 12:00 Nasal Cannula 4.0 Nasal Cannula 4.0 11/09/19 12:00 98.7 80 19 118/50 (72) 99 11/09/19 12:00 76 11/09/19 08:42 87 150/59 11/09/19 08:00 4.0 11/09/19 08:00 99.2 89 20 148/70 (96) 100 11/09/19 08:00 Nasal Cannula 4.0 Nasal Cannula 4.0 11/09/19 07:40 87 11/09/19 07:02 100 Nasal Cannula 3.0 32 11/09/19 05:23 87 24 99 30 11/09/19 04:00 Nasal Cannula 4.0 Bi-pap 11/09/19 04:00 40 11/09/19 04:00 98.4 85 27 144/67 (92) 97 11/09/19 03:30 96 11/09/19 03:25 89 25 96 30 11/09/19 01:02 81 24 97 30 11/09/19 01:02 81 24 97 Bi-Pap 30 11/09/19 00:00 98.6 81 24 151/58 (89) 96 11/09/19 00:00 Nasal Cannula 4.0 Bi-pap 11/08/19 23:32 79 11/08/19 22:58 82 25 97 30 11/08/19 20:00 4.0 11/08/19 20:00 98.4 75 24 145/63 (90) 100 11/08/19 20:00 Nasal Cannula 4.0 Nasal Cannula 4.0 11/08/19 19:26 100 Nasal Cannula 3.0 32 11/08/19 19:03 74 11/08/19 17:28 73 132/57 11/08/19 16:00 4.0 11/08/19 16:00 98.5 73 19 132/57 (82) 100 11/08/19 16:00 Nasal Cannula 4.0 Nasal Cannula 4.0 11/08/19 16:00 72 Intake and Output 11/08/19 11/09/19 19:00 07:00 Intake Total 1060 ml 280 ml Balance 1060 ml 280 ml Free Water 780 ml 80 ml Tube Feeding 280 ml 200 ml # Voids 3 Laboratory Tests 11/08/19 17:26: POC Whole Blood Glucose 154H 11/08/19 23:41: POC Whole Blood Glucose 155H 11/09/19 03:40: White Blood Count 10.9H, Red Blood Count 2.94L, Hemoglobin 8.9L, Hematocrit 30.0L, Mean Corpuscular Volume 102H, Mean Corpuscular Hemoglobin 30.2, Mean Corpuscular Hemoglobin Concent 29.7L, Red Cell Distribution Width 16.4H, Platelet Count 153, Mean Platelet Volume 7.1, Neutrophils (%) (Auto) , Lymphocytes (%) (Auto) , Monocytes (%) (Auto) , Eosinophils (%) (Auto) , Basophils (%) (Auto) , Prothrombin Time 11.6H, Prothromb Time International Ratio 1.1, Sodium Level 141, Potassium Level 4.7, Chloride Level 105, Carbon Dioxide Level 33H, Anion Gap 3L, Blood Urea Nitrogen 71H, Creatinine 4.2H, Estimat Glomerular Filtration Rate 13.7, Glucose Level 156H, Calcium Level 9.0 11/09/19 05:32: POC Whole Blood Glucose 163H 11/09/19 12:01: POC Whole Blood Glucose 130H Height (Feet): 5 Height (Inches): 4.00 Weight (Pounds): 206 General Appearance: no apparent distress, lethargic Cardiovascular: normal rate Respiratory/Chest: decreased breath sounds Abdomen: distended Objective No change Naveed Vanegas MD Nov 09, 2019 13:34
[2019-11-09] MEDS ORDERED: NS 500ML IVPB ONE (13:54)
--- NOTE | 2019-11-09 14:37 | Surgery Progress Note ---
Surgery Progress Note Subjective Procedure Performed Right femoral temporary hemodialysis catheter insertion Additional Comments no acute events leukocytosis afebrile comfortable line in place Objective Last 24 Hour Vital Signs Date Time Temp Pulse Resp B/P (MAP) Pulse Ox O2 Delivery O2 Flow Rate FiO2 11/09/19 14:24 79 13 167/61 100 Nasal Cannula 3 11/09/19 14:19 81 19 164/59 100 Nasal Cannula 3 11/09/19 14:14 97.6 80 18 164/69 99 Nasal Cannula 3 11/09/19 12:00 4.0 11/09/19 12:00 Nasal Cannula 4.0 Nasal Cannula 4.0 11/09/19 12:00 98.7 80 19 118/50 (72) 99 11/09/19 12:00 76 11/09/19 08:42 87 150/59 11/09/19 08:00 4.0 11/09/19 08:00 99.2 89 20 148/70 (96) 100 11/09/19 08:00 Nasal Cannula 4.0 Nasal Cannula 4.0 11/09/19 07:40 87 11/09/19 07:02 100 Nasal Cannula 3.0 32 11/09/19 05:23 87 24 99 30 11/09/19 04:00 Nasal Cannula 4.0 Bi-pap 11/09/19 04:00 40 11/09/19 04:00 98.4 85 27 144/67 (92) 97 11/09/19 03:30 96 11/09/19 03:25 89 25 96 30 11/09/19 01:02 81 24 97 30 11/09/19 01:02 81 24 97 Bi-Pap 30 11/09/19 00:00 98.6 81 24 151/58 (89) 96 11/09/19 00:00 Nasal Cannula 4.0 Bi-pap 11/08/19 23:32 79 11/08/19 22:58 82 25 97 30 11/08/19 20:00 4.0 11/08/19 20:00 98.4 75 24 145/63 (90) 100 11/08/19 20:00 Nasal Cannula 4.0 Nasal Cannula 4.0 11/08/19 19:26 100 Nasal Cannula 3.0 32 11/08/19 19:03 74 11/08/19 17:28 73 132/57 11/08/19 16:00 4.0 11/08/19 16:00 98.5 73 19 132/57 (82) 100 11/08/19 16:00 Nasal Cannula 4.0 Nasal Cannula 4.0 11/08/19 16:00 72 I&O Intake and Output 11/08/19 11/09/19 19:00 07:00 Intake Total 1060 ml 280 ml Balance 1060 ml 280 ml Free Water 780 ml 80 ml Tube Feeding 280 ml 200 ml # Voids 3 Dressing: saturated Cardiovascular: RSR Respiratory: decreased breath sounds Abdomen: soft, non-tender, present bowel sounds Extremities: edema, no cyanosis Laboratory Tests Test 11/08/19 17:26 11/08/19 23:41 11/09/19 03:40 11/09/19 05:32 POC Whole Blood Glucose 154 MG/DL (74-106) H 155 MG/DL (74-106) H 163 MG/DL (74-106) H White Blood Count 10.9 K/UL (4.8-10.8) H Red Blood Count 2.94 M/UL (4.70-6.10) L Hemoglobin 8.9 G/DL (14.2-18.0) L Hematocrit 30.0 % (42.0-52.0) L Mean Corpuscular Volume 102 FL (80-99) H Mean Corpuscular Hemoglobin 30.2 PG (27.0-31.0) Mean Corpuscular Hemoglobin Concent 29.7 G/DL (32.0-36.0) L Red Cell Distribution Width 16.4 % (11.6-14.8) H Platelet Count 153 K/UL (150-450) Mean Platelet Volume 7.1 FL (6.5-10.1) Neutrophils (%) (Auto) % (45.0-75.0) Lymphocytes (%) (Auto) % (20.0-45.0) Monocytes (%) (Auto) % (1.0-10.0) Eosinophils (%) (Auto) % (0.0-3.0) Basophils (%) (Auto) % (0.0-2.0) Prothrombin Time 11.6 SEC (9.30-11.50) H Prothromb Time International Ratio 1.1 (0.9-1.1) Sodium Level 141 MMOL/L (136-145) Potassium Level 4.7 MMOL/L (3.5-5.1) Chloride Level 105 MMOL/L (98-107) Carbon Dioxide Level 33 MMOL/L (21-32) H Anion Gap 3 mmol/L (5-15) L Blood Urea Nitrogen 71 mg/dL (7-18) H Creatinine 4.2 MG/DL (0.55-1.30) H Estimat Glomerular Filtration Rate 13.7 mL/min (>60) Glucose Level 156 MG/DL (74-106) H Calcium Level 9.0 MG/DL (8.5-10.1) Test 11/09/19 12:01 POC Whole Blood Glucose 130 MG/DL (74-106) H Plan Problems: (1) Hypercarbia (2) Pleural effusion (3) Chronic renal failure (4) Anemia (5) CHF (congestive heart failure) (6) Bacteremia (7) Cellulitis Assessment & Plan: penile swelling improved no active bleeding reyes okay will monitor (8) Hypoglycemia (9) Hyponatremia (10) ATN (acute tubular necrosis) (11) Metabolic acidosis Assessment & Plan: DYSPHAGIA RISK FACTORS INCLUDE: RESPIRATORY WELL MULTIPLE MEDICAL COMPLICATIONS, SHORTNESS OF BREATH, WORK OF BREATHING, DECREASED MENTATION, HX OF SUBOPTIMAL P.O. INTAKE, LETHARGY (DIFFICULTY SUSTAINING WAKEFULNESS) , CLINICAL HISTORY: AMS CURRENT CXR: Indication: Shortness of breath Technique: One view of the chest Comparison: 10/31/2019 Findings: Interim placement of nasogastric tube, tip projected at the level of the gastric body. This was also demonstrated on 11/01/2019 abdominal radiograph. Bilateral hazy opacity appears similar to or perhaps slightly increased from the prior study. Generalized mild interstitial prominence persists. Impression: Stable slightly increased bilateral pleural effusions Otherwise little drying rack changer 3 days INITIAL IMPRESSION: PATIENT POSITIONED AT 90 DEGREES UPRIGHT IN BED AND PRESENTED WITH P.O. TRIALS OF ICE CHIPS, ONE AT A TIME. LINGUAL SIZE PRESENTS ENLARGED. PATIENT PERSISTENTLY MOUTH BREATHING. WHEN PRESENTED WITH ONE ICE CHIP HE MANIPULATED IT, ALLOWED IT TO MELT ON HIS TONGUE AND AFTER A MODERATE DELAY, HE SWALLOWED. RR CHANGES FROM 18 BREATHS PER MINUTE TO 25 BREATHS PER MINUTE ALONG WITH WORK OF BREATHING. WHEN ASKED TO SAY "AH" POST SWALLOW, PATIENTS VOCAL QUALITY WAS WET/GURGLY. HYOLARYNGEAL EXCURSION PRESENTED MODERATELY DECREASED. PATIENT ESSENTIALLY NON/VERBAL THIS AFTERNOON. HIGH ASPIRATION RISK. HIS RISK FOR CONSISTENT/STABLE/SUFFICIENT P.O. INTAKE TO SUPPORT NUTRITION/HYDRATION NEEDS. RECOMMENDATIONS: 1. CONTINUE NON/ORAL FEEDING MANAGEMENT PRIMARY SOURCE OF NUTRITION/ HYDRATION/MEDICATION 2. NPO STATUS 3. RE/ORDER SWALLOW EVALUATION IF/WHEN PATIENTS MEDICAL STATUS STABILIZES. DAILY ESTIMATED NEEDS: Needs based on Critical care, wound 71kg abw 22-28 kcals/kg 7824-7963 total kcals 1.25-2 g protein/kg 88-154 g total protein 25-30 mL/kg 6203-4814 total fluid mLs NUTRITION DIAGNOSIS: 1) Swallowing difficulty r/t respiratory status as evidenced by pt is vent dep via trach, GT dep. 2) Increased kcal/prot needs R/T wound healing as evidenced by pt admitted w/ multiple wounds including full thickness x3, refer to wound care eval for full report. CURRENT TF:NPO ENTERAL NUTRITION RECOMMENDATIONS: Glucerna 1.2 @60ml/hr x24 hrs + Prosource 1pkt QD to provide 1440ml, 1728 kcal, 86g +11g pro, 1159ml free H2o - As medically appropriate, initiate Glucerna 1.2 @ 30ml/hr x 6hrs - Advance 10ml q 4-6 hrs as tolerated to goal rate - Add Prosource 1pkt daily to better meet protein needs - HOB over 30 degrees/ water flush 120ml q 4hrs PARENTERAL NUTRITION RECOMMENDATIONS TPN Comment: Rec TPN to meet est needs with anticipated prolonged NPO status ADDITIONAL RECOMMENDATIONS: 1) Calibrated bedscale wt 2) Rec adding D5 IVF while pt is NPO to prevent hypoglycemia 3) Monitor lytes w/ TF, replete as needed 4) Wound healing: Vit C 250mg BID + SILVESTRE BID w/ TF orders 5) Monitor need for NISS w/ TF: h/o DM 6) Consider TPN w/ anticipated prolonged NPO status (12) Pneumonia (13) Cellulitis of foot Assessment & Plan: Pt presented on admission with Bilat TMA. Pressure injuries both heels. Stable dry necrosis note to Plantar /lateral L TMA. L Heel is boggy with non- Blanchable erythema. . R Heel Boggy with Non-Blanchable erythema.Haemosiderin with Xerosis skin noted to R and L lower ext. Darker skin tone without erythema , induration or fluctuance Medial L Malleolus. Darker skin tone without erythema or induration noted to sacrum. Tx.Plan: Apply Moisture Barrier Paste to Sacrum. Cover with Optifoam drsg.Change every 3 days and prn. Apply Betadine to eschar plantar/lateral L TMA . Cover with Optifoam drsg. Change every 3 days and prn. Apply Cavilon Skin Barrier to both heels and Malleoli. Cover each site with Optifoam drsg. Change every 7days and prn. Reposition at least every 2hours or as tolerated. Off load heels with pillow.Hx prior amputation prior MRI and plain films reviewed wounds stable and local care being provided no abscess noted cont with dressings elevate heels with pillow turn q2h off load pressure air mattress will follow with recs thank you (14) Osteomyelitis (15) History of hypertension (16) Renal failure (ARF), acute on chronic (17) Acute encephalopathy (18) Diabetes mellitus (19) Hypertension (20) Cholelithiasis Assessment & Plan: US reviewed exam benign asymptomatic cholelithiasis alk phos mild elevated lfts improved trend labs no acute surgical intervention planned Liver: Liver measures 14.8 cm. No intrahepatic bile duct dilation. Gallbladder: Small stone in the gallbladder. No significant gallbladder wall thickening or pericholecystic fluid. Negative sonographic Bianchi's sign. Common bile duct: Normal common bile duct measuring 4.5 mm. No stones. No dilation. Pancreas: Pancreas is not visualized due to overlying bowel gas. Kidneys: Right kidney measures 9.1 cm in length. No hydronephrosis or stone. Left kidney not visualized due to patient's body habitus. Spleen: Spleen measures 9.4 cm. No focal lesion. Aorta: Visualized portions of the aorta are grossly unremarkable. The mid and distal portions are obscured by bowel gas. Inferior vena cava: Unremarkable. Free fluid: No ascites. Tubes, lines and devices: Reyes catheter in a decompressed bladder. IMPRESSION: Small stone in the gallbladder. No significant gallbladder wall thickening or pericholecystic fluid. Negative sonographic Bianchi's sign. Mariusz Diehl Nov 09, 2019 14:37
--- NOTE | 2019-11-09 14:37 | Endoscopy Procedure Note ---
Endoscopy Procedure Note General Indication for Procedure: dysphagia Procedures Performed: EGD, PEG Operative Findings/Diagnosis: gastritis Specimen: none Pt Tolerated Procedure Well: Yes Estimated Blood Loss: none Anesthesia Anesthesiologist: august Anesthesia: MAC Inserted Devices Implant(s) used?: No GI Core Measures 50 yrs or older w/o bx or poly: Not Applicable 10yrs. F/U recommended: Not Applicable Lawrence Humphreys MD Nov 09, 2019 14:37
--- NOTE | 2019-11-09 15:31 | Immediate Post-Op Evaluation ---
Immediate Post-Op Evalulation Immediate Post-Op Evalulation Procedure: egd/peg Date of Evaluation: Nov 09, 2019 Time of Evaluation: 14:26 IV Fluids: 250ml 0.9ns Blood Products: none Estimated Blood Loss: negligible Blood Pressure Systolic: 164 Blood Pressure Diastolic: 69 Pulse Rate: 80 Respiratory Rate: 18 O2 Sat by Pulse Oximetry: 99 Temperature (Fahrenheit): 97.6 Pain Score (1-10): 0 Nausea: No Vomiting: No Complications none Patient Status: awake, reacts, patent Hydration Status: adequate Drug: Mana Vega MD Nov 09, 2019 15:31
--- NOTE | 2019-11-09 15:33 | 48 Hour Post Anesthesia Eval ---
Post Anesthesia Evaluation Procedure: egd/peg Date of Evaluation: Nov 09, 2019 Time of Evaluation: 14:28 Blood Pressure Systolic: 167 0: 61 Pulse Rate: 79 Respiratory Rate: 18 Temperature (Fahrenheit): 97.6 O2 Sat by Pulse Oximetry: 99 Airway: patent Nausea: No Vomiting: No Pain Intensity: 0 Hydration Status: adequate Cardiopulmonary Status: stable Mental Status/LOC: patient returned to baseline Post-Anesthesia Complications: none Follow-up care needed: N/A Mana Forte MD Nov 09, 2019 15:33
--- NOTE | 2019-11-09 17:14 | Procedure Note ---
DATE OF PROCEDURE: 11/09/2019 ENDOSCOPIST: Lawrence Humphreys M.D. ANESTHESIOLOGIST: Mana Cloud M.D. PROCEDURE PERFORMED: Upper endoscopy with PEG placement. INSTRUMENT USED: Olympus adult flexible upper endoscope. INDICATIONS FOR PROCEDURE: Dysphagia, failure to thrive. DESCRIPTION OF PROCEDURE: After informed consent was obtained and the patient was adequately sedated, the Olympus upper endoscope was advanced through the mouth into the second portion of the duodenum and retroflexion maneuver was performed in the stomach. The patient had some diffuse gastritis. Under endoscopic guidance and sterile conditions, a 20-Romanian pull type of G-tube was successfully placed in the epigastric area. The distance from the tip of the tube to skin was about 2.5 cm in size. The patient tolerated the procedure well without any complications. SUMMARY OF FINDINGS: Status post successful PEG placement. RECOMMENDATIONS: 1. Abdominal binder. 2. Elevate the head of the bed at all times. 3. G-tube flush. 4. G-tube care. 5. Start tube feeding later today. 6. The patient received a dose of clindamycin prior to this procedure. Lawrence Humphreys M.D. DR: ADRIANNE JOB#: [id number] CC:
--- NOTE | 2019-11-09 18:30 | Progress Note ---
DATE: 11/09/2019 The patient is awake, alert, afebrile, and hemodynamically stable and responds verbally. PHYSICAL EXAMINATION: VITAL SIGNS: Blood pressure is 161/59. His pulse is 80, respirations are 15, temperature 97.9. HEENT: Eyes were normal. ENT, mucous membranes were moist and intact. NECK: Supple with no JVD without lymph nodes. LUNGS: Clear. HEART: Normal sounds with regular beats. There is no tachycardia at rest. ABDOMEN: Soft, nontender with normal bowel sounds. Gastrostomy site is clean. EXTREMITIES: Warm without cyanosis, clubbing, or edema. The patient underwent yesterday insertion of PermCath into his right chest and underwent today upper GI endoscopy and percutaneous gastrostomy insertion. During dialysis yesterday, the patient's blood pressure danial and the dialysis was aborted. His gastrostomy tube has not been tested as of yet. Repeat laboratory tests will be done in a.m. Ayush Chang M.D. DR: QUYEN JOB#: [id number] CC:
[2019-11-09 18:49] LABS: HEMOGLOBIN 8.5 G/DL (14.2-18.0); MEAN CORPUSCULAR VOLUME 105 FL (80-99); PLATELET COUNT 128 K/UL (150-450); RED BLOOD COUNT 2.76 M/UL (4.70-6.10); RED CELL DISTRIBUTION WIDTH 17.4 % (11.6-14.8); WHITE BLOOD COUNT 9.5 K/UL (4.8-10.8)
[2019-11-09 18:50] LABS: BASOPHILS % (AUTO) 0.5 % (0.0-2.0); EOSINOPHILS % (AUTO) 0.9 % (0.0-3.0); LYMPHOCYTES % (AUTO) 8.5 % (20.0-45.0); NEUTROPHILS % (AUTO) 87.1 % (45.0-75.0)
[2019-11-09] MEDS: Dyna-Hex 2% Top Sol 2oz TOPIC SCH (20:28)
[2019-11-09] MEDS: Miralax 17gm pkt NG SCH (20:29)
--- NOTE | 2019-11-09 22:18 | Psych Consult Progress Note ---
Psychiatry Progress Note Psychiatry Progress Note Subjective the pt is confused agitations disoriented Medications Current Medications Medications (Trade) Dose Ordered Sig/Cammy Route PRN Reason Start Time Stop Time Status Last Admin Dose Admin Acetaminophen (Tylenol) 650 mg Q6H PRN NG Pain 3-5 11/03/19 11:15 12/02/19 11:14 Amlodipine Besylate (Norvasc) 5 mg BID NG 11/03/19 18:00 11/25/19 08:59 11/09/19 17:19 Atorvastatin Calcium (Lipitor) 10 mg BEDTIME NG 11/03/19 21:00 01/21/20 20:59 11/09/19 20:28 Chlorhexidine Gluconate (Yi-Hex 2%) 1 applic DAILY@1999 TOPIC 11/03/19 20:00 01/31/20 19:59 11/09/19 20:28 Dextrose (Dextrose 50%) 25 ml Q30M PRN IV Hypoglycemia 11/03/19 11:15 01/20/20 21:44 Dextrose (Dextrose 50%) 50 ml Q30M PRN IV Hypoglycemia 11/03/19 11:15 01/20/20 21:44 Docusate Sodium (Colace) 100 mg THREE TIMES A DAY NG 11/03/19 13:00 12/02/19 17:59 11/09/19 17:19 Epoetin William (Epoetin William(ESRD on dialysis)) 10,000 unit FRI-FRI-FRI SUBQ 11/03/19 21:00 02/01/20 20:59 11/08/19 20:26 Haloperidol (Haldol) 5 mg Q12H PRN NG Agitation 11/03/19 11:15 12/17/19 11:14 Haloperidol Lactate (Haldol) 5 mg Q6H PRN IM Agitation 11/03/19 11:15 12/10/19 11:14 Hydralazine HCl (Apresoline) 10 mg Q4H PRN IV For High Blood Pressure 11/03/19 11:15 01/24/20 11:14 Insulin Aspart (NovoLOG) Q6HR SUBQ 11/06/19 06:00 01/31/20 06:29 11/09/19 05:49 Lactulose (Cephulac) 10 gm BID NG 11/03/19 18:00 9/9/20 08:59 11/09/19 17:25 Levothyroxine Sodium (Synthroid) 75 mcg DAILY@0630 ORAL 11/04/19 06:30 12/04/19 06:29 11/09/19 05:47 Pantoprazole (Protonix) 40 mg EVERY 12 HOURS IVP 11/03/19 21:00 11/22/19 08:59 11/09/19 20:28 Polyethylene Glycol (Miralax) 17 gm BEDTIME NG 11/03/19 21:00 12/01/19 20:59 11/09/19 20:29 Sennosides (Senokot) 8.6 mg HSPRN PRN NG Constipation 11/03/19 16:15 12/02/19 16:14 Sevelamer Carbonate (Renvela) 1,600 mg THREE TIMES A DAY NG 11/03/19 13:00 01/21/20 17:59 11/09/19 17:25 Neurological/Psychiatric: Denies: no symptoms, anxiety, depressed, emotional problems, headache, numbness, paresthesia, pre-existing deficit, seizure, tingling, tremors, weakness, other Allergies: Coded Allergies: PENICILLINS (Verified Allergy, Unknown, 10/25/19) tolerated Ceftriaxone Objective Data Height (Feet): 5 Height (Inches): 4.00 Weight (Pounds): 206 General Appearance: no apparent distress, lethargic Appearance: no abnormalities noted Behavior Mannerisms: good eye contact Mental Status Exam - Affect: blunted Mental Status Exam - Mood: anxious, agitated Mental Status Exam - Thought P: tangential, confusion Mental Status Exam - Thought C: delusions (specify) Mental Status Exam - Suicidal: not present Additional Comments: awake, confused, and disoriented. Mood is agitated. Affect is flat. Thought process, there is a paucity of thought content. Thought content, no suicidal or homicidal ideation. Cognition is impaired. Insight and judgment impaired. Dada Finch MD Nov 09, 2019 22:18
[2019-11-10] VITALS: BP 147/74
[2019-11-10 04:00] VITALS: BP 148/63
[2019-11-10 05:22] LABS: HEMATOCRIT 27.7 % (42.0-52.0); HEMOGLOBIN 8.1 G/DL (14.2-18.0); MEAN CORPUSCULAR VOLUME 102 FL (80-99); PLATELET COUNT 145 K/UL (150-450); RED BLOOD COUNT 2.71 M/UL (4.70-6.10); RED CELL DISTRIBUTION WIDTH 16.9 % (11.6-14.8); WHITE BLOOD COUNT 10.3 K/UL (4.8-10.8)
[2019-11-10 05:47] LABS: ALANINE AMINOTRANSFERASE 16 U/L (12-78); ALBUMIN 1.9 G/DL (3.4-5.0); ALBUMIN/GLOBULIN RATIO 0.5 (1.0-2.7); ALKALINE PHOSPHATASE 87 U/L (46-116); ANION GAP 3 mmol/L (5-15); ASPARTATE AMINO TRANSFERASE 20 U/L (15-37); BILIRUBIN,TOTAL 0.5 MG/DL (0.2-1.0); BLOOD UREA NITROGEN 62 mg/dL (7-18); CALCIUM 8.7 MG/DL (8.5-10.1); CARBON DIOXIDE 33 MMOL/L (21-32); CHLORIDE 104 MMOL/L (98-107); CREATININE 3.7 MG/DL (0.55-1.30); PHOSPHORUS 2.9 MG/DL (2.5-4.9); POTASSIUM 4.5 MMOL/L (3.5-5.1); SODIUM 140 MMOL/L (136-145)
[2019-11-10] MEDS: NovoLOG Insulin Flexpen SUBQ SCH ×4 (06:00→17:37)
--- NOTE | 2019-11-10 06:54 | Infectious Diseases Prog Note ---
Assessment/Plan 79yo M from [facility] who p/w hypoglycemia and resp failure: Acute hypoxic respiratory failure, on BiPAP > 2L NC> RA > 2L NC Rapid COVID neg x2 (10/21, 10/24) Pneumonia on CXR Volume overload 10/30 CXR: Slightly improved 10/25 CXR: Bilateral alveolar densities are unchanged 10/24 Sp cx normal resp demario (prelim) 10/23 CXR: 1. Small layering right pleural effusion, not significantly changed. The previously noted small left pleural effusion is not as evident.Prominent lung markings and haziness, right greater left, which may be related to pulmonary vascular congestion versus pneumonitis. This is not significantly changed.. Subsegmental atelectasis versus infiltrate in the medial left lung base, also not significantly changed. 10/21 CXR: 1. Small bilateral pleural effusions. Bibasilar atelectasis versus pneumonia. 2. Prominent lung markings and hazy opacities in right greater than left lungs may represent artifact versus pulmonary vasculature congestion and edema versus infectious/inflammatory process. 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 10/31 No clear clinical correlate to this imaging finding, s/p 7 days of CTX which is good abx for mastoiditis Hypercapnia, on BiPAP, improving Afebrile No leukocytosis Anemia to 6.8, improved UA neg, UCx neg R/o bacteremia 10/21 BCx NTD ALEXIS on CKD, worsening --> now on HD HBsAg neg Plan: Cont to monitor off abx, s/p 7d of abx for pna, but this also covered for possible mastoiditis ENT to evaluate ears/TMs for signs of underlying mastoiditis, as seen on CT head ; would appreciate the evaluation as pt unable to tell us if he has ear pain/DE LEON , etc; if unable to obtain in house, OK for pt to have outpt ENT f/u for evaluation given that pt has remained AF wo s/sx of ear infection here, and there is no pain on ear exam here (though unable to fully evaluate the inner ears) 11/07 Clindamycin x1 for catheter placement 10/31 SP CTX #7 10/26 SP vancomycin IV #5 Trend resp status Monitor CBC, CMP D/w RN Thank you for this consult. [facility] will continue to follow. Subjective Allergies: Coded Allergies: PENICILLINS (Verified Allergy, Unknown, 10/25/19) tolerated Ceftriaxone AF S/p PEG placement yesterday WBC 10, stable Objective Last 24 Hour Vital Signs Date Time Temp Pulse Resp B/P (MAP) Pulse Ox O2 Delivery O2 Flow Rate FiO2 11/10/19 05:14 100 20 98 30 11/10/19 04:00 97.0 97 18 148/63 (91) 100 11/10/19 04:00 Bi-pap Bi-pap 11/10/19 03:35 83 11/10/19 03:10 88 30 98 30 11/10/19 00:54 93 24 97 30 11/10/19 00:00 Nasal Cannula 4.0 Nasal Cannula 4.0 11/10/19 00:00 98.1 86 18 147/74 (98) 100 11/10/19 00:00 4.0 11/09/19 23:33 91 11/09/19 22:55 90 27 97 30 11/09/19 20:00 Nasal Cannula 4.0 Nasal Cannula 4.0 11/09/19 20:00 4.0 11/09/19 20:00 97.4 97 18 149/64 (92) 100 11/09/19 19:24 80 11/09/19 19:11 97 Nasal Cannula 2.0 28 11/09/19 17:19 80 144/63 11/09/19 16:00 4.0 11/09/19 16:00 80 11/09/19 16:00 97.3 79 19 144/63 (90) 100 11/09/19 16:00 Nasal Cannula 4.0 Nasal Cannula 4.0 11/09/19 15:33 79 18 99 11/09/19 15:31 80 18 99 11/09/19 14:40 97.9 80 15 161/59 100 Nasal Cannula 3 11/09/19 14:34 81 18 162/61 100 Nasal Cannula 3 11/09/19 14:24 79 13 167/61 100 Nasal Cannula 3 11/09/19 14:19 81 19 164/59 100 Nasal Cannula 3 11/09/19 14:14 97.6 80 18 164/69 99 Nasal Cannula 3 11/09/19 12:00 4.0 11/09/19 12:00 Nasal Cannula 4.0 Nasal Cannula 4.0 11/09/19 12:00 98.7 80 19 118/50 (72) 99 11/09/19 12:00 76 11/09/19 08:42 87 150/59 11/09/19 08:00 4.0 11/09/19 08:00 99.2 89 20 148/70 (96) 100 11/09/19 08:00 Nasal Cannula 4.0 Nasal Cannula 4.0 11/09/19 07:40 87 11/09/19 07:02 100 Nasal Cannula 3.0 32 Height (Feet): 5 Height (Inches): 4.00 Weight (Pounds): 202 Gen: Older man, NAD in bed, getting HD CV: RRR Pulm: CTAB anteriorly on NC Abd: Soft, NTND Neuro: Eyes open slightly to voice Laboratory Tests Test 11/09/19 12:01 11/09/19 17:10 11/09/19 18:10 11/10/19 03:25 POC Whole Blood Glucose 130 MG/DL (74-106) H 128 MG/DL (74-106) H White Blood Count 9.5 K/UL (4.8-10.8) 10.3 K/UL (4.8-10.8) Red Blood Count 2.76 M/UL (4.70-6.10) L 2.71 M/UL (4.70-6.10) L Hemoglobin 8.5 G/DL (14.2-18.0) L 8.1 G/DL (14.2-18.0) L Hematocrit 29.0 % (42.0-52.0) L 27.7 % (42.0-52.0) L Mean Corpuscular Volume 105 FL (80-99) H 102 FL (80-99) H Mean Corpuscular Hemoglobin 30.8 PG (27.0-31.0) 30.0 PG (27.0-31.0) Mean Corpuscular Hemoglobin Concent 29.3 G/DL (32.0-36.0) L 29.3 G/DL (32.0-36.0) L Red Cell Distribution Width 17.4 % (11.6-14.8) H 16.9 % (11.6-14.8) H Platelet Count 128 K/UL (150-450) L 145 K/UL (150-450) L Mean Platelet Volume 7.4 FL (6.5-10.1) 7.7 FL (6.5-10.1) Neutrophils (%) (Auto) 87.1 % (45.0-75.0) H % (45.0-75.0) Lymphocytes (%) (Auto) 8.5 % (20.0-45.0) L % (20.0-45.0) Monocytes (%) (Auto) 3.0 % (1.0-10.0) % (1.0-10.0) Eosinophils (%) (Auto) 0.9 % (0.0-3.0) % (0.0-3.0) Basophils (%) (Auto) 0.5 % (0.0-2.0) % (0.0-2.0) Neutrophils % (Manual) Pending Lymphocytes % (Manual) Pending Platelet Estimate Pending Platelet Morphology Pending Sodium Level 140 MMOL/L (136-145) Potassium Level 4.5 MMOL/L (3.5-5.1) Chloride Level 104 MMOL/L (98-107) Carbon Dioxide Level 33 MMOL/L (21-32) H Anion Gap 3 mmol/L (5-15) L Blood Urea Nitrogen 62 mg/dL (7-18) H Creatinine 3.7 MG/DL (0.55-1.30) H Estimat Glomerular Filtration Rate 15.8 mL/min (>60) Glucose Level 153 MG/DL (74-106) H Calcium Level 8.7 MG/DL (8.5-10.1) Phosphorus Level 2.9 MG/DL (2.5-4.9) Magnesium Level 2.5 MG/DL (1.8-2.4) H Total Bilirubin 0.5 MG/DL (0.2-1.0) Aspartate Amino Transf (AST/SGOT) 20 U/L (15-37) Alanine Aminotransferase (ALT/SGPT) 16 U/L (12-78) Alkaline Phosphatase 87 U/L (46-116) C-Reactive Protein, Quantitative 8.9 mg/dL (0.00-0.90) H Total Protein 5.5 G/DL (6.4-8.2) L Albumin 1.9 G/DL (3.4-5.0) L Globulin 3.6 g/dL Albumin/Globulin Ratio 0.5 (1.0-2.7) L Test 11/10/19 05:51 POC Whole Blood Glucose Pending Current Medications Medications (Trade) Dose Ordered Sig/Cammy Route PRN Reason Start Time Stop Time Status Last Admin Dose Admin Acetaminophen (Tylenol) 650 mg Q6H PRN NG Pain 3-5 11/03/19 11:15 12/02/19 11:14 Amlodipine Besylate (Norvasc) 5 mg BID NG 11/03/19 18:00 11/25/19 08:59 11/09/19 17:19 Atorvastatin Calcium (Lipitor) 10 mg BEDTIME NG 11/03/19 21:00 01/21/20 20:59 11/09/19 20:28 Chlorhexidine Gluconate (Yi-Hex 2%) 1 applic DAILY@1999 TOPIC 11/03/19 20:00 01/31/20 19:59 11/09/19 20:28 Dextrose (Dextrose 50%) 25 ml Q30M PRN IV Hypoglycemia 11/03/19 11:15 01/20/20 21:44 Dextrose (Dextrose 50%) 50 ml Q30M PRN IV Hypoglycemia 11/03/19 11:15 01/20/20 21:44 Docusate Sodium (Colace) 100 mg THREE TIMES A DAY NG 11/03/19 13:00 12/02/19 17:59 11/09/19 17:19 Epoetin William (Epoetin William(ESRD on dialysis)) 10,000 unit FRI-FRI-FRI SUBQ 11/03/19 21:00 02/01/20 20:59 11/08/19 20:26 Haloperidol (Haldol) 5 mg Q12H PRN NG Agitation 11/03/19 11:15 12/17/19 11:14 Haloperidol Lactate (Haldol) 5 mg Q6H PRN IM Agitation 11/03/19 11:15 12/10/19 11:14 Hydralazine HCl (Apresoline) 10 mg Q4H PRN IV For High Blood Pressure 11/03/19 11:15 01/24/20 11:14 Insulin Aspart (NovoLOG) Q6HR SUBQ 11/06/19 06:00 01/31/20 06:29 11/09/19 05:49 Lactulose (Cephulac) 10 gm BID NG 11/03/19 18:00 12/01/19 08:59 11/09/19 17:25 Levothyroxine Sodium (Synthroid) 75 mcg DAILY@0630 ORAL 11/04/19 06:30 12/04/19 06:29 11/10/19 05:53 Metoprolol Tartrate (Lopressor) 25 mg ONCE ORAL 11/10/19 06:30 11/10/19 08:00 Metoprolol Tartrate (Lopressor) 25 mg Q12HR ORAL 11/10/19 21:00 02/08/20 20:59 Pantoprazole (Protonix) 40 mg EVERY 12 HOURS IVP 11/03/19 21:00 11/22/19 08:59 11/09/19 20:28 Polyethylene Glycol (Miralax) 17 gm BEDTIME NG 11/03/19 21:00 12/01/19 20:59 11/09/19 20:29 Sennosides (Senokot) 8.6 mg HSPRN PRN NG Constipation 11/03/19 16:15 12/02/19 16:14 Sevelamer Carbonate (Renvela) 1,600 mg THREE TIMES A DAY NG 11/03/19 13:00 01/21/20 17:59 11/09/19 17:25 Mckenna Diallo M.D. Nov 10, 2019 06:54
--- NOTE | 2019-11-10 07:03 | Hematology/Onc Progress Note ---
Assessment/Plan Assessment/Plan Covering Dr. Chang ASSESSMENT AND RECOMMENDATIONS: # Anemia of chronic disease due to underlying chronic medical issues, multifactorial --> Anemia w/u has been reviewed. --> no evidence of hemolysis is noted, peripheral smear has been reviewed --> hgb goal is >7, transfuse as needed --> currently remains stable, occult blood negative --> hgb 8.4->8.6->8.3->8->8.2->9.2-->9.2->8.9-->8.1 --> some blood loss due to hematuria after inflated reyes pulled 8/6 am --> EPOGEN Started # Acute kidney injury r/o potential reversible component --> reviewed meds, those that are renally cleared removed --> as per renal recs, appreciated --> cr 3.5-->4.2 --> Hd started and dw renal # Hypertension, essential --> sbp goal is <140, consider anti-htn as needed --> currently started on hyralazine 25mg po q6h prn sbp >140 # CHF - hx of CHf --> diuresis with lasix as needed --> cardiology recs appreciated prior adm #. Leukocytosis with underlying infectionv stress reaction HISTORY --> per id and better --> for infection, ABX ctx/vanc-->off #. Bilateral lower extremity amputee, metatarsal several years ago #. Hyperkalemia -- kayxelate as needed #. Dvt ppx scds --> apixaban->off for catheter placement 11/07 The time the note was entered does not necessarily correspond to the time the patient was seen. GREATLY APPRECIATE CONSULTATION. Subjective HEENT: Denies: no symptoms, eye pain, blurred vision, tearing, double vision, ear pain, ear discharge, nose pain, nose congestion, throat pain, throat swelling, mouth pain, mouth swelling, other Cardiovascular: Denies: no symptoms, chest pain, edema, irregular heart rate, lightheadedness, palpitations, syncope, other Respiratory: Denies: no symptoms, cough, shortness of breath, SOB with excertion, SOB at rest, sputum, wheezing, other Gastrointestinal/Abdominal: Denies: no symptoms, abdomen distended, abdominal pain, black stools, tarry stools, blood in stool, constipated, diarrhea, difficulty swallowing, nausea, poor appetite, poor fluid intake, rectal bleeding , vomiting, other Genitourinary: Denies: no symptoms, burning, discharge, frequency, flank pain, hematuria, incontinence, pain, urgency, other Neurologic/Psychiatric: Denies: no symptoms, anxiety, depressed, emotional problems, headache, numbness, paresthesia, pre-existing deficit, seizure, tingling, tremors, weakness, other Hematologic/Lymphatic: Denies: no symptoms, anemia, easy bleeding, easy bruising, adenopathy, other Allergies: Coded Allergies: PENICILLINS (Verified Allergy, Unknown, 10/25/19) tolerated Ceftriaxone Subjective 10/[address] Chang, to do best to avoid haldol, continue restraints, jag rn, on nc, feeling better 10/25 still with some agitation overnight, meds reviewed, jag rn, haldol given in AM 10/26 is on 2l nc, also is on restraints, no night sweats, no bleeding 10/27 reyes catheter has been removed by patient, and resinserted, bed sheets, with bright red blood on exam 10/28 labs are noted, no bleeding, cr is worse, seen by renal, remains edematous 11/04 no major changes, hd as per renal, recs are noted, labs reviewed, pending neuro eval 11/05 is on bipap with restraints, no major changes, no bleeding, labs noted 11/06 remains agitated, is off eliquis for catheter placement for tuesday 11/07 on bipap, remains agitated, jag rn, procedure today 11/08 remains confused, no bleeding, meds noted, hgb 8.9, may need peg 11/09 on bipap, remains confused in restraints, jag rn, hgb lower Objective Objective Current Medications Medications (Trade) Dose Ordered Sig/Cammy Route PRN Reason Start Time Stop Time Status Last Admin Dose Admin Acetaminophen (Tylenol) 650 mg Q6H PRN NG Pain 3-5 11/03/19 11:15 12/02/19 11:14 Amlodipine Besylate (Norvasc) 5 mg BID NG 11/03/19 18:00 11/25/19 08:59 11/09/19 17:19 Atorvastatin Calcium (Lipitor) 10 mg BEDTIME NG 11/03/19 21:00 01/21/20 20:59 11/09/19 20:28 Chlorhexidine Gluconate (Yi-Hex 2%) 1 applic DAILY@2000 TOPIC 11/03/19 20:00 01/31/20 19:59 11/09/19 20:28 Dextrose (Dextrose 50%) 25 ml Q30M PRN IV Hypoglycemia 11/03/19 11:15 01/20/20 21:44 Dextrose (Dextrose 50%) 50 ml Q30M PRN IV Hypoglycemia 11/03/19 11:15 01/20/20 21:44 Docusate Sodium (Colace) 100 mg THREE TIMES A DAY NG 11/03/19 13:00 12/02/19 17:59 11/09/19 17:19 Epoetin William (Epoetin William(ESRD on dialysis)) 10,000 unit SUBQ 11/03/19 21:00 02/01/20 20:59 11/08/19 20:26 Haloperidol (Haldol) 5 mg Q12H PRN NG Agitation 11/03/19 11:15 12/17/19 11:14 Haloperidol Lactate (Haldol) 5 mg Q6H PRN IM Agitation 11/03/19 11:15 12/10/19 11:14 Hydralazine HCl (Apresoline) 10 mg Q4H PRN IV For High Blood Pressure 11/03/19 11:15 01/24/20 11:14 Insulin Aspart (NovoLOG) Q6HR SUBQ 11/06/19 06:00 01/31/20 06:29 11/09/19 05:49 Lactulose (Cephulac) 10 gm BID NG 11/03/19 18:00 12/01/19 08:59 11/09/19 17:25 Levothyroxine Sodium (Synthroid) 75 mcg DAILY@0630 ORAL 11/04/19 06:30 12/04/19 06:29 11/10/19 05:53 Metoprolol Tartrate (Lopressor) 25 mg ONCE ORAL 11/10/19 06:30 11/10/19 08:00 Metoprolol Tartrate (Lopressor) 25 mg Q12HR ORAL 11/10/19 21:00 02/08/20 20:59 Pantoprazole (Protonix) 40 mg EVERY 12 HOURS IVP 11/03/19 21:00 11/22/19 08:59 11/09/19 20:28 Polyethylene Glycol (Miralax) 17 gm BEDTIME NG 11/03/19 21:00 12/01/19 20:59 11/09/19 20:29 Sennosides (Senokot) 8.6 mg HSPRN PRN NG Constipation 11/03/19 16:15 12/02/19 16:14 Sevelamer Carbonate (Renvela) 1,600 mg THREE TIMES A DAY NG 11/03/19 13:00 01/21/20 17:59 11/09/19 17:25 Last 24 Hour Vital Signs Date Time Temp Pulse Resp B/P (MAP) Pulse Ox O2 Delivery O2 Flow Rate FiO2 11/10/19 05:14 100 20 98 30 11/10/19 04:00 97.0 97 18 148/63 (91) 100 11/10/19 04:00 Bi-pap Bi-pap 11/10/19 03:35 83 11/10/19 03:10 88 30 98 30 11/10/19 00:54 93 24 97 30 11/10/19 00:00 Nasal Cannula 4.0 Nasal Cannula 4.0 11/10/19 00:00 98.1 86 18 147/74 (98) 100 11/10/19 00:00 4.0 11/09/19 23:33 91 11/09/19 22:55 90 27 97 30 11/09/19 20:00 Nasal Cannula 4.0 Nasal Cannula 4.0 11/09/19 20:00 4.0 11/09/19 20:00 97.4 97 18 149/64 (92) 100 11/09/19 19:24 80 11/09/19 19:11 97 Nasal Cannula 2.0 28 11/09/19 17:19 80 144/63 11/09/19 16:00 4.0 11/09/19 16:00 80 11/09/19 16:00 97.3 79 19 144/63 (90) 100 11/09/19 16:00 Nasal Cannula 4.0 Nasal Cannula 4.0 11/09/19 15:33 79 18 99 11/09/19 15:31 80 18 99 11/09/19 14:40 97.9 80 15 161/59 100 Nasal Cannula 3 11/09/19 14:34 81 18 162/61 100 Nasal Cannula 3 11/09/19 14:24 79 13 167/61 100 Nasal Cannula 3 11/09/19 14:19 81 19 164/59 100 Nasal Cannula 3 11/09/19 14:14 97.6 80 18 164/69 99 Nasal Cannula 3 11/09/19 12:00 4.0 11/09/19 12:00 Nasal Cannula 4.0 Nasal Cannula 4.0 11/09/19 12:00 98.7 80 19 118/50 (72) 99 11/09/19 12:00 76 11/09/19 08:42 87 150/59 11/09/19 08:00 4.0 11/09/19 08:00 99.2 89 20 148/70 (96) 100 11/09/19 08:00 Nasal Cannula 4.0 Nasal Cannula 4.0 11/09/19 07:40 87 11/09/19 07:02 100 Nasal Cannula 3.0 32 11/09/19 05:23 87 24 99 30 11/09/19 04:00 Nasal Cannula 4.0 Bi-pap 11/09/19 04:00 40 11/09/19 04:00 98.4 85 27 144/67 (92) 97 11/09/19 03:30 96 11/09/19 03:25 89 25 96 30 11/09/19 01:02 81 24 97 30 11/09/19 01:02 81 24 97 Bi-Pap 30 11/09/19 00:00 98.6 81 24 151/58 (89) 96 11/09/19 00:00 Nasal Cannula 4.0 Bi-pap 11/08/19 23:32 79 11/08/19 22:58 82 25 97 30 11/08/19 20:00 4.0 11/08/19 20:00 98.4 75 24 145/63 (90) 100 11/08/19 20:00 Nasal Cannula 4.0 Nasal Cannula 4.0 11/08/19 19:26 100 Nasal Cannula 3.0 32 11/08/19 19:03 74 11/08/19 17:28 73 132/57 11/08/19 16:00 4.0 11/08/19 16:00 98.5 73 19 132/57 (82) 100 11/08/19 16:00 Nasal Cannula 4.0 Nasal Cannula 4.0 11/08/19 16:00 72 11/08/19 12:00 73 11/08/19 12:00 4.0 11/08/19 12:00 Nasal Cannula 4.0 Nasal Cannula 4.0 11/08/19 12:00 97.7 69 17 132/51 (78) 98 11/08/19 11:36 76 24 4.0 11/08/19 11:05 76 24 4.0 11/08/19 10:42 76 24 4.0 11/08/19 08:36 78 159/61 11/08/19 08:00 4.0 11/08/19 08:00 97.5 78 23 159/61 (93) 100 11/08/19 08:00 82 11/08/19 08:00 Nasal Cannula 4.0 Nasal Cannula 4.0 Intake and Output 11/09/19 11/10/19 19:00 07:00 Intake Total 320 ml 150 ml Output Total 1000 ml Balance -680 ml 150 ml Free Water 30 ml 50 ml IV Total 250 ml Tube Feeding 40 ml 100 ml Hemodialysis UF 1000 ml # Voids 2 3 # Bowel Movements 2 Labs Test 11/07/19 11:48 11/07/19 18:09 11/08/19 00:43 11/08/19 05:48 POC Whole Blood Glucose 144 MG/DL (74-106) 140 MG/DL (74-106) 145 MG/DL (74-106) Test 11/08/19 08:10 11/08/19 13:12 11/08/19 17:26 11/08/19 23:41 Prothrombin Time 11.7 SEC (9.30-11.50) Prothromb Time International Ratio 1.1 (0.9-1.1) Activated Partial Thromboplast Time 30 SEC (23-33) Sodium Level 144 MMOL/L (136-145) Potassium Level 4.4 MMOL/L (3.5-5.1) Chloride Level 106 MMOL/L (98-107) Carbon Dioxide Level 36 MMOL/L (21-32) Anion Gap 2 mmol/L (5-15) Blood Urea Nitrogen 65 mg/dL (7-18) Creatinine 4.1 MG/DL (0.55-1.30) Estimat Glomerular Filtration Rate 14.1 mL/min (>60) Glucose Level 143 MG/DL (74-106) Calcium Level 8.7 MG/DL (8.5-10.1) Phosphorus Level 3.5 MG/DL (2.5-4.9) Magnesium Level 2.7 MG/DL (1.8-2.4) Total Bilirubin 0.5 MG/DL (0.2-1.0) Aspartate Amino Transf (AST/SGOT) 18 U/L (15-37) Alanine Aminotransferase (ALT/SGPT) 19 U/L (12-78) Alkaline Phosphatase 88 U/L (46-116) Total Protein 5.1 G/DL (6.4-8.2) Albumin 2.2 G/DL (3.4-5.0) Globulin 2.9 g/dL Albumin/Globulin Ratio 0.8 (1.0-2.7) POC Whole Blood Glucose 154 MG/DL (74-106) 155 MG/DL (74-106) Test 11/09/19 03:40 11/09/19 05:32 11/09/19 12:01 11/09/19 17:10 White Blood Count 10.9 K/UL (4.8-10.8) Red Blood Count 2.94 M/UL (4.70-6.10) Hemoglobin 8.9 G/DL (14.2-18.0) Hematocrit 30.0 % (42.0-52.0) Mean Corpuscular Volume 102 FL (80-99) Mean Corpuscular Hemoglobin 30.2 PG (27.0-31.0) Mean Corpuscular Hemoglobin Concent 29.7 G/DL (32.0-36.0) Red Cell Distribution Width 16.4 % (11.6-14.8) Platelet Count 153 K/UL (150-450) Mean Platelet Volume 7.1 FL (6.5-10.1) Neutrophils (%) (Auto) % (45.0-75.0) Lymphocytes (%) (Auto) % (20.0-45.0) Monocytes (%) (Auto) % (1.0-10.0) Eosinophils (%) (Auto) % (0.0-3.0) Basophils (%) (Auto) % (0.0-2.0) Prothrombin Time 11.6 SEC (9.30-11.50) Prothromb Time International Ratio 1.1 (0.9-1.1) Sodium Level 141 MMOL/L (136-145) Potassium Level 4.7 MMOL/L (3.5-5.1) Chloride Level 105 MMOL/L (98-107) Carbon Dioxide Level 33 MMOL/L (21-32) Anion Gap 3 mmol/L (5-15) Blood Urea Nitrogen 71 mg/dL (7-18) Creatinine 4.2 MG/DL (0.55-1.30) Estimat Glomerular Filtration Rate 13.7 mL/min (>60) Glucose Level 156 MG/DL (74-106) Calcium Level 9.0 MG/DL (8.5-10.1) POC Whole Blood Glucose 163 MG/DL (74-106) 130 MG/DL (74-106) 128 MG/DL (74-106) Test 11/09/19 18:10 11/10/19 03:25 11/10/19 05:51 White Blood Count 9.5 K/UL (4.8-10.8) 10.3 K/UL (4.8-10.8) Red Blood Count 2.76 M/UL (4.70-6.10) 2.71 M/UL (4.70-6.10) Hemoglobin 8.5 G/DL (14.2-18.0) 8.1 G/DL (14.2-18.0) Hematocrit 29.0 % (42.0-52.0) 27.7 % (42.0-52.0) Mean Corpuscular Volume 105 FL (80-99) 102 FL (80-99) Mean Corpuscular Hemoglobin 30.8 PG (27.0-31.0) 30.0 PG (27.0-31.0) Mean Corpuscular Hemoglobin Concent 29.3 G/DL (32.0-36.0) 29.3 G/DL (32.0-36.0) Red Cell Distribution Width 17.4 % (11.6-14.8) 16.9 % (11.6-14.8) Platelet Count 128 K/UL (150-450) 145 K/UL (150-450) Mean Platelet Volume 7.4 FL (6.5-10.1) 7.7 FL (6.5-10.1) Neutrophils (%) (Auto) 87.1 % (45.0-75.0) % (45.0-75.0) Lymphocytes (%) (Auto) 8.5 % (20.0-45.0) % (20.0-45.0) Monocytes (%) (Auto) 3.0 % (1.0-10.0) % (1.0-10.0) Eosinophils (%) (Auto) 0.9 % (0.0-3.0) % (0.0-3.0) Basophils (%) (Auto) 0.5 % (0.0-2.0) % (0.0-2.0) Sodium Level 140 MMOL/L (136-145) Potassium Level 4.5 MMOL/L (3.5-5.1) Chloride Level 104 MMOL/L (98-107) Carbon Dioxide Level 33 MMOL/L (21-32) Anion Gap 3 mmol/L (5-15) Blood Urea Nitrogen 62 mg/dL (7-18) Creatinine 3.7 MG/DL (0.55-1.30) Estimat Glomerular Filtration Rate 15.8 mL/min (>60) Glucose Level 153 MG/DL (74-106) Calcium Level 8.7 MG/DL (8.5-10.1) Phosphorus Level 2.9 MG/DL (2.5-4.9) Magnesium Level 2.5 MG/DL (1.8-2.4) Total Bilirubin 0.5 MG/DL (0.2-1.0) Aspartate Amino Transf (AST/SGOT) 20 U/L (15-37) Alanine Aminotransferase (ALT/SGPT) 16 U/L (12-78) Alkaline Phosphatase 87 U/L (46-116) C-Reactive Protein, Quantitative 8.9 mg/dL (0.00-0.90) Total Protein 5.5 G/DL (6.4-8.2) Albumin 1.9 G/DL (3.4-5.0) Globulin 3.6 g/dL Albumin/Globulin Ratio 0.5 (1.0-2.7) Height (Feet): 5 Height (Inches): 4.00 Weight (Pounds): 202 Objective GENERAL: Not in acute distress. PULMONARY: Decreased breath sounds. ++ bipap +ngt CARDIOVASCULAR: Regular rate. No S3 or S4. ABDOMEN: Soft, nontender, nondistended. EXTREMITIES: 1+ edema. No cyanosis, swelling, or edema. 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 Melvin Rizzo MD Nov 10, 2019 07:03
[2019-11-10 08:00] VITALS: BP 136/51
[2019-11-10] MEDS: Lactulose 10gm/15ml UDC NG SCH ×2 (08:58→17:35)
[2019-11-10] MEDS: Pantoprazole Inj IVP SCH (08:58)
[2019-11-10] MEDS: Docusate 100mg/10ml Liq NG SCH ×3 (08:58→17:35)
[2019-11-10] MEDS: Renvela 800mg Pkt NG SCH ×3 (08:59→17:36)
--- NOTE | 2019-11-10 09:29 | Pulmonology Progress Note ---
Subjective ROS Limited/Unobtainable: Yes Allergies: Coded Allergies: PENICILLINS (Verified Allergy, Unknown, 10/25/19) tolerated Ceftriaxone All Systems: reviewed and negative except above Subjective s/p perm HD catheter placement 11/07 s/p PEG 11/08 more awake, alert, afebrile on 2l O2 via NC BiPAP at HS no signs of resp distress episode fo A fib with RVR, started on metoprolol per cardio, rate controlled currently ( hx of A fib) Objective Last 24 Hour Vital Signs Date Time Temp Pulse Resp B/P (MAP) Pulse Ox O2 Delivery O2 Flow Rate FiO2 11/10/19 08:58 77 136/51 11/10/19 07:13 97 Nasal Cannula 2.0 28 11/10/19 07:02 99 147/77 11/10/19 05:14 100 20 98 30 11/10/19 04:00 97.0 97 18 148/63 (91) 100 11/10/19 04:00 Bi-pap Bi-pap 11/10/19 03:35 83 11/10/19 03:10 88 30 98 30 11/10/19 00:54 93 24 97 30 11/10/19 00:00 Nasal Cannula 4.0 Nasal Cannula 4.0 11/10/19 00:00 98.1 86 18 147/74 (98) 100 11/10/19 00:00 4.0 11/09/19 23:33 91 11/09/19 22:55 90 27 97 30 11/09/19 20:00 Nasal Cannula 4.0 Nasal Cannula 4.0 11/09/19 20:00 4.0 11/09/19 20:00 97.4 97 18 149/64 (92) 100 11/09/19 19:24 80 11/09/19 19:11 97 Nasal Cannula 2.0 28 11/09/19 17:19 80 144/63 11/09/19 16:00 4.0 11/09/19 16:00 80 11/09/19 16:00 97.3 79 19 144/63 (90) 100 11/09/19 16:00 Nasal Cannula 4.0 Nasal Cannula 4.0 11/09/19 15:33 79 18 99 11/09/19 15:31 80 18 99 11/09/19 14:40 97.9 80 15 161/59 100 Nasal Cannula 3 11/09/19 14:34 81 18 162/61 100 Nasal Cannula 3 11/09/19 14:24 79 13 167/61 100 Nasal Cannula 3 11/09/19 14:19 81 19 164/59 100 Nasal Cannula 3 11/09/19 14:14 97.6 80 18 164/69 99 Nasal Cannula 3 11/09/19 12:00 4.0 11/09/19 12:00 Nasal Cannula 4.0 Nasal Cannula 4.0 11/09/19 12:00 98.7 80 19 118/50 (72) 99 11/09/19 12:00 76 Intake and Output 11/09/19 11/10/19 19:00 07:00 Intake Total 320 ml 170 ml Output Total 1000 ml Balance -680 ml 170 ml Free Water 30 ml 50 ml IV Total 250 ml Tube Feeding 40 ml 120 ml Hemodialysis UF 1000 ml # Voids 2 3 # Bowel Movements 2 Objective General Appearance: no apparent distress, Tajik speaking awake, more alert and responsive male, Lines, tubes and drains: R chest tunneled HD catheter , R femoral temporal HD catheter HEENT: normocephalic, atraumatic, anicteric, mucous membranes moist, O2 2 L via NC, NGT Respiratory/Chest: few scattered crackles, no exp wheezing, Cardiovascular/Chest: normal rate, A fib with controlled HR Abdomen: normal bowel sounds, non tender, soft Extremities: partially amputated BL foot/metatarsal Skin Exam: warm/dry Neurologic: abnormal gait, awake, more responsive responsive, Musculoskeletal: atrophy BLE Laboratory Tests 11/09/19 12:01: POC Whole Blood Glucose 130H 11/09/19 17:10: POC Whole Blood Glucose 128H 11/09/19 18:10: White Blood Count 9.5, Red Blood Count 2.76L, Hemoglobin 8.5L, Hematocrit 29.0L , Mean Corpuscular Volume 105H, Mean Corpuscular Hemoglobin 30.8, Mean Corpuscular Hemoglobin Concent 29.3L, Red Cell Distribution Width 17.4H, Platelet Count 128L, Mean Platelet Volume 7.4, Neutrophils (%) (Auto) 87.1H, Lymphocytes (%) (Auto) 8.5L, Monocytes (%) (Auto) 3.0, Eosinophils (%) (Auto) 0.9, Basophils (%) (Auto) 0.5 11/10/19 03:25: White Blood Count 10.3, Red Blood Count 2.71L, Hemoglobin 8.1L, Hematocrit 27.7L , Mean Corpuscular Volume 102H, Mean Corpuscular Hemoglobin 30.0, Mean Corpuscular Hemoglobin Concent 29.3L, Red Cell Distribution Width 16.9H, Platelet Count 145L, Mean Platelet Volume 7.7, Neutrophils (%) (Auto) , Lymphocytes (%) (Auto) , Monocytes (%) (Auto) , Eosinophils (%) (Auto) , Basophils (%) (Auto) , Neutrophils % (Manual) [Pending], Lymphocytes % (Manual) [Pending], Platelet Estimate [Pending], Platelet Morphology [Pending], Sodium Level 140, Potassium Level 4.5, Chloride Level 104, Carbon Dioxide Level 33H, Anion Gap 3L, Blood Urea Nitrogen 62H, Creatinine 3.7H, Estimat Glomerular Filtration Rate 15.8, Glucose Level 153H, Calcium Level 8.7, Phosphorus Level 2.9, Magnesium Level 2.5H, Total Bilirubin 0.5, Aspartate Amino Transf (AST/SGOT ) 20, Alanine Aminotransferase (ALT/SGPT) 16, Alkaline Phosphatase 87, C- Reactive Protein, Quantitative 8.9H, Total Protein 5.5L, Albumin 1.9L, Globulin 3.6, Albumin/Globulin Ratio 0.5L 11/10/19 05:51: POC Whole Blood Glucose [Pending] 11/10/19 08:56: POC Whole Blood Glucose [Pending] Current Medications Medications (Trade) Dose Ordered Sig/Cammy Route PRN Reason Start Time Stop Time Status Last Admin Dose Admin Acetaminophen (Tylenol) 650 mg Q6H PRN NG Pain 3-5 11/03/19 11:15 12/02/19 11:14 Amlodipine Besylate (Norvasc) 5 mg BID NG 11/03/19 18:00 11/25/19 08:59 11/09/19 17:19 Atorvastatin Calcium (Lipitor) 10 mg BEDTIME NG 11/03/19 21:00 01/21/20 20:59 11/09/19 20:28 Chlorhexidine Gluconate (Yi-Hex 2%) 1 applic DAILY@1999 TOPIC 11/03/19 20:00 01/31/20 19:59 11/09/19 20:28 Dextrose (Dextrose 50%) 25 ml Q30M PRN IV Hypoglycemia 11/03/19 11:15 01/20/20 21:44 Dextrose (Dextrose 50%) 50 ml Q30M PRN IV Hypoglycemia 11/03/19 11:15 01/20/20 21:44 Docusate Sodium (Colace) 100 mg THREE TIMES A DAY NG 11/03/19 13:00 12/02/19 17:59 11/10/19 08:58 Epoetin William (Epoetin William(ESRD on dialysis)) 10,000 unit SUBQ 11/03/19 21:00 02/01/20 20:59 11/08/19 20:26 Haloperidol (Haldol) 5 mg Q12H PRN NG Agitation 11/03/19 11:15 12/17/19 11:14 Haloperidol Lactate (Haldol) 5 mg Q6H PRN IM Agitation 11/03/19 11:15 12/10/19 11:14 Hydralazine HCl (Apresoline) 10 mg Q4H PRN IV For High Blood Pressure 11/03/19 11:15 01/24/20 11:14 Insulin Aspart (NovoLOG) Q6HR SUBQ 11/06/19 06:00 01/31/20 06:29 11/09/19 05:49 Lactulose (Cephulac) 10 gm BID NG 11/03/19 18:00 12/01/19 08:59 11/10/19 08:58 Levothyroxine Sodium (Synthroid) 75 mcg DAILY@0630 ORAL 11/04/19 06:30 12/04/19 06:29 11/10/19 05:53 Metoprolol Tartrate (Lopressor) 25 mg Q12HR ORAL 11/10/19 21:00 02/08/20 20:59 Pantoprazole (Protonix) 40 mg EVERY 12 HOURS IVP 11/03/19 21:00 11/22/19 08:59 11/10/19 08:58 Polyethylene Glycol (Miralax) 17 gm BEDTIME NG 11/03/19 21:00 12/01/19 20:59 11/09/19 20:29 Sennosides (Senokot) 8.6 mg HSPRN PRN NG Constipation 11/03/19 16:15 12/02/19 16:14 Sevelamer Carbonate (Renvela) 1,600 mg THREE TIMES A DAY NG 11/03/19 13:00 01/21/20 17:59 11/10/19 08:59 Assessment/Plan Assessment/Plan ASSESSMENT Acute hypoxemic hypercapnic respiratory failure requiring BiPAP Acute metabolic encephalopathy likely due to hypoglycemia Diabetes mellitus with initial hypoglycemia Probably pneumonia Aspiration risk Dysphagia Acute kidney injury on chronic kidney disease, requiring start of HD 10/30 Severe anemia requiring blood transfusion Metabolic acidosis Electrolyte imbalance :hyponatremia, hyperkalemia HTN with HTN urgency Dysphagia Hematuria 2 to pt pulled off his Lyles catheter Possibly DAYANA PLAN OF CARE TOYIN BiPAP at HS and prn currently on O2 2 L via NC titrate O2, pulm toilet patient likely has DAYANA. recommend sleep study as OP CXR 11/02 -> Stable slightly increased bilateral pleural effusions. Otherwise little exchange administrator 3 days 10/21 and 10/24 rapid COVID NGT, abx as per ID recs -> Ceftriaxone , completed 10/30 ; s/p Vanco , completed Rx for PNA 7 days, remains afebrile no leucocytosis BCX 10/21 NGTD UCX NGT SCX if able Venous Duplex BLE 10/25 -> NGT CT head revealed bilateral mastoid disease; a new finding ID recommended ENT eval- pending- per primary team on HD- started 10/30 renal US ->Mildly atrophic kidneys. No hydronephrosis or nephrolithiasis. monitor volumes, renal parameters, lytes, correct as needed fup with nephro recs s/p placement of permanent HD catheter R chest 11/07 need removal of temporary HD catheter - discussed with RN, will notify surgeon ECHO with pEF 55-60% rate control with BB, now added, HR stable on chronic a/c , was on hold for PEG, resume Eliquis swallow eval with aspiration risk diet texture as per ST recs with strict asp precautions and assistance with meals now NGT repeat BSSE 11/04 -> failed, recommended nonoral feeding started on NGT feeding strict aspiration precautions s/p PEG 11/08 asp precautions, GT site care, monitor tolerance of TF AMS 10/[address] head negative, off sedatives ammonia WNL NGT inserted for meds as per nephro recs NEED NEURO EVAL-per primary AMS improved to baseline HgA1c -6.1 hold oral anti-glycemic SSI prn sensitive initial AMS was most likely due to episode of hypoglycemia CT head NGT for acute ICP -done x 2 BP management with CCB BB and Hydralazine prn for BP spikes monitor HH with goal to keep Hgb above 7 stool OB anemia w/up noted , heme on board s/p 1 dose of Venofer on EPO hematuria resolved, Hgb at baseline GI prophayxlis supportive care ok for transfer to [facility] WILL NEED HOME TRILOGY VENT TO BE ARRANGED ON DISCHARGE case management aware, work in progress case discussed and evaluated by supervising physician Reema Hanna NP Nov 10, 2019 09:29
--- NOTE | 2019-11-10 09:32 | General Progress Note ---
Assessment/Plan Problem List: (1) Hypertension ICD Codes: I10 - Essential (primary) hypertension SNOMED: 61736395 (2) Diabetes mellitus ICD Codes: E11.9 - Type 2 diabetes mellitus without complications SNOMED: 38357093 (3) Anemia ICD Codes: D64.9 - Anemia, unspecified SNOMED: 141748584 (4) Cholelithiasis ICD Codes: K80.20 - Calculus of gallbladder without cholecystitis without obstruction SNOMED: 813079734 (5) CHF (congestive heart failure) ICD Codes: I50.9 - Heart failure, unspecified SNOMED: 16270734 Assessment/Plan: HD per nephrology s/p PEG GTF change ppi to daily Subjective ROS Limited/Unobtainable: No Allergies: Coded Allergies: PENICILLINS (Verified Allergy, Unknown, 10/25/19) tolerated Ceftriaxone Objective Last 24 Hour Vital Signs Date Time Temp Pulse Resp B/P (MAP) Pulse Ox O2 Delivery O2 Flow Rate FiO2 11/10/19 08:58 77 136/51 11/10/19 07:56 82 11/10/19 07:13 97 Nasal Cannula 2.0 28 11/10/19 07:02 99 147/77 11/10/19 05:14 100 20 98 30 11/10/19 04:00 97.0 97 18 148/63 (91) 100 11/10/19 04:00 Bi-pap Bi-pap 11/10/19 03:35 83 11/10/19 03:10 88 30 98 30 11/10/19 00:54 93 24 97 30 11/10/19 00:00 Nasal Cannula 4.0 Nasal Cannula 4.0 11/10/19 00:00 98.1 86 18 147/74 (98) 100 11/10/19 00:00 4.0 11/09/19 23:33 91 11/09/19 22:55 90 27 97 30 11/09/19 20:00 Nasal Cannula 4.0 Nasal Cannula 4.0 11/09/19 20:00 4.0 11/09/19 20:00 97.4 97 18 149/64 (92) 100 11/09/19 19:24 80 11/09/19 19:11 97 Nasal Cannula 2.0 28 11/09/19 17:19 80 144/63 11/09/19 16:00 4.0 11/09/19 16:00 80 11/09/19 16:00 97.3 79 19 144/63 (90) 100 11/09/19 16:00 Nasal Cannula 4.0 Nasal Cannula 4.0 11/09/19 15:33 79 18 99 11/09/19 15:31 80 18 99 11/09/19 14:40 97.9 80 15 161/59 100 Nasal Cannula 3 11/09/19 14:34 81 18 162/61 100 Nasal Cannula 3 11/09/19 14:24 79 13 167/61 100 Nasal Cannula 3 11/09/19 14:19 81 19 164/59 100 Nasal Cannula 3 11/09/19 14:14 97.6 80 18 164/69 99 Nasal Cannula 3 11/09/19 12:00 4.0 11/09/19 12:00 Nasal Cannula 4.0 Nasal Cannula 4.0 11/09/19 12:00 98.7 80 19 118/50 (72) 99 11/09/19 12:00 76 Intake and Output 11/09/19 11/10/19 19:00 07:00 Intake Total 320 ml 170 ml Output Total 1000 ml Balance -680 ml 170 ml Free Water 30 ml 50 ml IV Total 250 ml Tube Feeding 40 ml 120 ml Hemodialysis UF 1000 ml # Voids 2 3 # Bowel Movements 2 Laboratory Tests 11/09/19 12:01: POC Whole Blood Glucose 130H 11/09/19 17:10: POC Whole Blood Glucose 128H 11/09/19 18:10: White Blood Count 9.5, Red Blood Count 2.76L, Hemoglobin 8.5L, Hematocrit 29.0L , Mean Corpuscular Volume 105H, Mean Corpuscular Hemoglobin 30.8, Mean Corpuscular Hemoglobin Concent 29.3L, Red Cell Distribution Width 17.4H, Platelet Count 128L, Mean Platelet Volume 7.4, Neutrophils (%) (Auto) 87.1H, Lymphocytes (%) (Auto) 8.5L, Monocytes (%) (Auto) 3.0, Eosinophils (%) (Auto) 0.9, Basophils (%) (Auto) 0.5 11/10/19 03:25: White Blood Count 10.3, Red Blood Count 2.71L, Hemoglobin 8.1L, Hematocrit 27.7L , Mean Corpuscular Volume 102H, Mean Corpuscular Hemoglobin 30.0, Mean Corpuscular Hemoglobin Concent 29.3L, Red Cell Distribution Width 16.9H, Platelet Count 145L, Mean Platelet Volume 7.7, Neutrophils (%) (Auto) , Lymphocytes (%) (Auto) , Monocytes (%) (Auto) , Eosinophils (%) (Auto) , Basophils (%) (Auto) , Neutrophils % (Manual) [Pending], Lymphocytes % (Manual) [Pending], Platelet Estimate [Pending], Platelet Morphology [Pending], Sodium Level 140, Potassium Level 4.5, Chloride Level 104, Carbon Dioxide Level 33H, Anion Gap 3L, Blood Urea Nitrogen 62H, Creatinine 3.7H, Estimat Glomerular Filtration Rate 15.8, Glucose Level 153H, Calcium Level 8.7, Phosphorus Level 2.9, Magnesium Level 2.5H, Total Bilirubin 0.5, Aspartate Amino Transf (AST/SGOT ) 20, Alanine Aminotransferase (ALT/SGPT) 16, Alkaline Phosphatase 87, C- Reactive Protein, Quantitative 8.9H, Total Protein 5.5L, Albumin 1.9L, Globulin 3.6, Albumin/Globulin Ratio 0.5L 11/10/19 05:51: POC Whole Blood Glucose [Pending] 11/10/19 08:56: POC Whole Blood Glucose [Pending] Height (Feet): 5 Height (Inches): 4.00 Weight (Pounds): 202 General Appearance: no apparent distress EENT: PERRL/EOMI Neck: supple Cardiovascular: normal rate Respiratory/Chest: decreased breath sounds Abdomen: normal bowel sounds, non tender, soft Extremities: non-tender Lawrence Humphreys MD Nov 10, 2019 09:32
[2019-11-10 12:00] VITALS: BP 149/54
--- NOTE | 2019-11-10 12:52 | Surgery Progress Note ---
Surgery Progress Note Subjective Procedure Performed Right femoral temporary hemodialysis catheter insertion Additional Comments no acute events comfortable line removed Objective Last 24 Hour Vital Signs Date Time Temp Pulse Resp B/P (MAP) Pulse Ox O2 Delivery O2 Flow Rate FiO2 11/10/19 11:00 Nasal Cannula 2.0 28 11/10/19 08:58 77 136/51 11/10/19 08:00 Nasal Cannula 2.0 Nasal Cannula 2.0 11/10/19 08:00 98.2 80 18 136/51 (79) 100 11/10/19 08:00 2.0 11/10/19 07:56 82 11/10/19 07:13 97 Nasal Cannula 2.0 28 11/10/19 07:02 99 147/77 11/10/19 05:14 100 20 98 30 11/10/19 04:00 97.0 97 18 148/63 (91) 100 11/10/19 04:00 Bi-pap Bi-pap 11/10/19 03:35 83 11/10/19 03:10 88 30 98 30 11/10/19 00:54 93 24 97 30 11/10/19 00:00 Nasal Cannula 4.0 Nasal Cannula 4.0 11/10/19 00:00 98.1 86 18 147/74 (98) 100 11/10/19 00:00 4.0 11/09/19 23:33 91 11/09/19 22:55 90 27 97 30 11/09/19 20:00 Nasal Cannula 4.0 Nasal Cannula 4.0 11/09/19 20:00 4.0 11/09/19 20:00 97.4 97 18 149/64 (92) 100 11/09/19 19:24 80 11/09/19 19:11 97 Nasal Cannula 2.0 28 11/09/19 17:19 80 144/63 11/09/19 16:00 4.0 11/09/19 16:00 80 11/09/19 16:00 97.3 79 19 144/63 (90) 100 11/09/19 16:00 Nasal Cannula 4.0 Nasal Cannula 4.0 11/09/19 15:33 79 18 99 11/09/19 15:31 80 18 99 11/09/19 14:40 97.9 80 15 161/59 100 Nasal Cannula 3 11/09/19 14:34 81 18 162/61 100 Nasal Cannula 3 11/09/19 14:24 79 13 167/61 100 Nasal Cannula 3 11/09/19 14:19 81 19 164/59 100 Nasal Cannula 3 11/09/19 14:14 97.6 80 18 164/69 99 Nasal Cannula 3 I&O Intake and Output 11/09/19 11/10/19 19:00 07:00 Intake Total 320 ml 170 ml Output Total 1000 ml Balance -680 ml 170 ml Free Water 30 ml 50 ml IV Total 250 ml Tube Feeding 40 ml 120 ml Hemodialysis UF 1000 ml # Voids 2 3 # Bowel Movements 2 Dressing: saturated Wound: other Drains: other Cardiovascular: RSR Respiratory: decreased breath sounds Abdomen: soft, non-tender, present bowel sounds Extremities: edema, no cyanosis, other Laboratory Tests Test 11/09/19 17:10 11/09/19 18:10 11/10/19 03:25 11/10/19 05:51 POC Whole Blood Glucose 128 MG/DL (74-106) H Pending White Blood Count 9.5 K/UL (4.8-10.8) 10.3 K/UL (4.8-10.8) Red Blood Count 2.76 M/UL (4.70-6.10) L 2.71 M/UL (4.70-6.10) L Hemoglobin 8.5 G/DL (14.2-18.0) L 8.1 G/DL (14.2-18.0) L Hematocrit 29.0 % (42.0-52.0) L 27.7 % (42.0-52.0) L Mean Corpuscular Volume 105 FL (80-99) H 102 FL (80-99) H Mean Corpuscular Hemoglobin 30.8 PG (27.0-31.0) 30.0 PG (27.0-31.0) Mean Corpuscular Hemoglobin Concent 29.3 G/DL (32.0-36.0) L 29.3 G/DL (32.0-36.0) L Red Cell Distribution Width 17.4 % (11.6-14.8) H 16.9 % (11.6-14.8) H Platelet Count 128 K/UL (150-450) L 145 K/UL (150-450) L Mean Platelet Volume 7.4 FL (6.5-10.1) 7.7 FL (6.5-10.1) Neutrophils (%) (Auto) 87.1 % (45.0-75.0) H % (45.0-75.0) Lymphocytes (%) (Auto) 8.5 % (20.0-45.0) L % (20.0-45.0) Monocytes (%) (Auto) 3.0 % (1.0-10.0) % (1.0-10.0) Eosinophils (%) (Auto) 0.9 % (0.0-3.0) % (0.0-3.0) Basophils (%) (Auto) 0.5 % (0.0-2.0) % (0.0-2.0) Differential Total Cells Counted 100 Neutrophils % (Manual) 92 % (45-75) H Lymphocytes % (Manual) 4 % (20-45) L Monocytes % (Manual) 4 % (1-10) Eosinophils % (Manual) 0 % (0-3) Basophils % (Manual) 0 % (0-2) Band Neutrophils 0 % (0-8) Platelet Estimate Decreased L Platelet Morphology Normal Hypochromasia 1+ Anisocytosis 1+ Macrocytosis 1+ Sodium Level 140 MMOL/L (136-145) Potassium Level 4.5 MMOL/L (3.5-5.1) Chloride Level 104 MMOL/L (98-107) Carbon Dioxide Level 33 MMOL/L (21-32) H Anion Gap 3 mmol/L (5-15) L Blood Urea Nitrogen 62 mg/dL (7-18) H Creatinine 3.7 MG/DL (0.55-1.30) H Estimat Glomerular Filtration Rate 15.8 mL/min (>60) Glucose Level 153 MG/DL (74-106) H Calcium Level 8.7 MG/DL (8.5-10.1) Phosphorus Level 2.9 MG/DL (2.5-4.9) Magnesium Level 2.5 MG/DL (1.8-2.4) H Total Bilirubin 0.5 MG/DL (0.2-1.0) Aspartate Amino Transf (AST/SGOT) 20 U/L (15-37) Alanine Aminotransferase (ALT/SGPT) 16 U/L (12-78) Alkaline Phosphatase 87 U/L (46-116) C-Reactive Protein, Quantitative 8.9 mg/dL (0.00-0.90) H Total Protein 5.5 G/DL (6.4-8.2) L Albumin 1.9 G/DL (3.4-5.0) L Globulin 3.6 g/dL Albumin/Globulin Ratio 0.5 (1.0-2.7) L Test 11/10/19 08:56 11/10/19 12:41 POC Whole Blood Glucose Pending 131 MG/DL (74-106) H Plan Problems: (1) Hypercarbia (2) Pleural effusion (3) Chronic renal failure (4) Anemia (5) CHF (congestive heart failure) (6) Bacteremia (7) Cellulitis Assessment & Plan: penile swelling improved no active bleeding reyes okay will monitor (8) Hypoglycemia (9) Hyponatremia (10) ATN (acute tubular necrosis) (11) Metabolic acidosis Assessment & Plan: DYSPHAGIA RISK FACTORS INCLUDE: RESPIRATORY WELL MULTIPLE MEDICAL COMPLICATIONS, SHORTNESS OF BREATH, WORK OF BREATHING, DECREASED MENTATION, HX OF SUBOPTIMAL P.O. INTAKE, LETHARGY (DIFFICULTY SUSTAINING WAKEFULNESS) , CLINICAL HISTORY: AMS CURRENT CXR: Indication: Shortness of breath Technique: One view of the chest Comparison: 10/31/2019 Findings: Interim placement of nasogastric tube, tip projected at the level of the gastric body. This was also demonstrated on 11/01/2019 abdominal radiograph. Bilateral hazy opacity appears similar to or perhaps slightly increased from the prior study. Generalized mild interstitial prominence persists. Impression: Stable slightly increased bilateral pleural effusions Otherwise little car changer 3 days INITIAL IMPRESSION: PATIENT POSITIONED AT 90 DEGREES UPRIGHT IN BED AND PRESENTED WITH P.O. TRIALS OF ICE CHIPS, ONE AT A TIME. LINGUAL SIZE PRESENTS ENLARGED. PATIENT PERSISTENTLY MOUTH BREATHING. WHEN PRESENTED WITH ONE ICE CHIP HE MANIPULATED IT, ALLOWED IT TO MELT ON HIS TONGUE AND AFTER A MODERATE DELAY, HE SWALLOWED. RR CHANGES FROM 18 BREATHS PER MINUTE TO 25 BREATHS PER MINUTE ALONG WITH WORK OF BREATHING. WHEN ASKED TO SAY "AH" POST SWALLOW, PATIENTS VOCAL QUALITY WAS WET/GURGLY. HYOLARYNGEAL EXCURSION PRESENTED MODERATELY DECREASED. PATIENT ESSENTIALLY NON/VERBAL THIS AFTERNOON. HIGH ASPIRATION RISK. HIS RISK FOR CONSISTENT/STABLE/SUFFICIENT P.O. INTAKE TO SUPPORT NUTRITION/HYDRATION NEEDS. RECOMMENDATIONS: 1. CONTINUE NON/ORAL FEEDING MANAGEMENT PRIMARY SOURCE OF NUTRITION/ HYDRATION/MEDICATION 2. NPO STATUS 3. RE/ORDER SWALLOW EVALUATION IF/WHEN PATIENTS MEDICAL STATUS STABILIZES. DAILY ESTIMATED NEEDS: Needs based on Critical care, wound 71kg abw 22-28 kcals/kg 8138-8322 total kcals 1.25-2 g protein/kg 88-154 g total protein 25-30 mL/kg 9542-9855 total fluid mLs NUTRITION DIAGNOSIS: 1) Swallowing difficulty r/t respiratory status as evidenced by pt is vent dep via trach, GT dep. 2) Increased kcal/prot needs R/T wound healing as evidenced by pt admitted w/ multiple wounds including full thickness x3, refer to wound care eval for full report. CURRENT TF:NPO ENTERAL NUTRITION RECOMMENDATIONS: Glucerna 1.2 @60ml/hr x24 hrs + Prosource 1pkt QD to provide 1440ml, 1728 kcal, 86g +11g pro, 1159ml free H2o - As medically appropriate, initiate Glucerna 1.2 @ 30ml/hr x 6hrs - Advance 10ml q 4-6 hrs as tolerated to goal rate - Add Prosource 1pkt daily to better meet protein needs - HOB over 30 degrees/ water flush 120ml q 4hrs PARENTERAL NUTRITION RECOMMENDATIONS TPN Comment: Rec TPN to meet est needs with anticipated prolonged NPO status ADDITIONAL RECOMMENDATIONS: 1) Calibrated bedscale wt 2) Rec adding D5 IVF while pt is NPO to prevent hypoglycemia 3) Monitor lytes w/ TF, replete as needed 4) Wound healing: Vit C 250mg BID + SILVESTRE BID w/ TF orders 5) Monitor need for NISS w/ TF: h/o DM 6) Consider TPN w/ anticipated prolonged NPO status (12) Pneumonia (13) Cellulitis of foot Assessment & Plan: Pt presented on admission with Bilat TMA. Pressure injuries both heels. Stable dry necrosis note to Plantar /lateral L TMA. L Heel is boggy with non- Blanchable erythema. . R Heel Boggy with Non-Blanchable erythema.Haemosiderin with Xerosis skin noted to R and L lower ext. Darker skin tone without erythema , induration or fluctuance Medial L Malleolus. Darker skin tone without erythema or induration noted to sacrum. Tx.Plan: Apply Moisture Barrier Paste to Sacrum. Cover with Optifoam drsg.Change every 3 days and prn. Apply Betadine to eschar plantar/lateral L TMA . Cover with Optifoam drsg. Change every 3 days and prn. Apply Cavilon Skin Barrier to both heels and Malleoli. Cover each site with Optifoam drsg. Change every 7days and prn. Reposition at least every 2hours or as tolerated. Off load heels with pillow.Hx prior amputation prior MRI and plain films reviewed wounds stable and local care being provided no abscess noted cont with dressings elevate heels with pillow turn q2h off load pressure air mattress will follow with recs thank you (14) Osteomyelitis (15) History of hypertension (16) Renal failure (ARF), acute on chronic Assessment & Plan: HD line removed 11/09 (17) Acute encephalopathy (18) Diabetes mellitus (19) Hypertension (20) Cholelithiasis Assessment & Plan: US reviewed exam benign asymptomatic cholelithiasis alk phos mild elevated lfts improved trend labs no acute surgical intervention planned Liver: Liver measures 14.8 cm. No intrahepatic bile duct dilation. Gallbladder: Small stone in the gallbladder. No significant gallbladder wall thickening or pericholecystic fluid. Negative sonographic Bianchi's sign. Common bile duct: Normal common bile duct measuring 4.5 mm. No stones. No dilation. Pancreas: Pancreas is not visualized due to overlying bowel gas. Kidneys: Right kidney measures 9.1 cm in length. No hydronephrosis or stone. Left kidney not visualized due to patient's body habitus. Spleen: Spleen measures 9.4 cm. No focal lesion. Aorta: Visualized portions of the aorta are grossly unremarkable. The mid and distal portions are obscured by bowel gas. Inferior vena cava: Unremarkable. Free fluid: No ascites. Tubes, lines and devices: Reyes catheter in a decompressed bladder. IMPRESSION: Small stone in the gallbladder. No significant gallbladder wall thickening or pericholecystic fluid. Negative sonographic Bianchi's sign. Mariusz Diehl Nov 10, 2019 12:52
--- NOTE | 2019-11-10 12:54 | Operative Note - PDOC ---
Operative Note Operative Note Date of Operation/Procedure: Nov 10, 2019 Pre-op Diagnosis: Renal insufficiency requiring temporary hemodialysis potentially long-term Procedure: removal Right femoral temporary hemodialysis catheter Post-op Diagnosis: same as pre-op Surgeon: farnaz briscoe Specimen: none Complications: none Condition: stable Fluids: none Estimated Blood Loss: none Drains: none Implant(s) used?: No Description of Procedure Patient has improved and currently has a permacath placed. Temporary femoral hemodialysis catheter no longer necessary. At the bedside the right femoral catheter dressings were removed. Site was clean. Sutures removed. Catheter was removed and pressure was held for approximately 20 minutes until hemostasis noted. Dressings applied. Care plan instructions given to nursing at bedside. Will monitor. Thank you Mariusz Diehl Nov 10, 2019 12:53
--- NOTE | 2019-11-10 13:37 | Nephrology Progress Note ---
Assessment/Plan Problem List: (1) Renal failure (ARF), acute on chronic (2) Metabolic acidosis (3) Electrolyte imbalance Assessment: Hyponatremia and hyperkalemia (4) Anemia (5) CHF (congestive heart failure) Assessment 79-year-old male is admitted for hypoglycemia Patient has renal failure which appears to be acute on chronic Hyperkalemia Hyponatremia CHF, pleural effusion, pneumonia Anemia Metabolic acidosis Hypothyroidism Plan November 09: Patient due for dialysis today due to incomplete dialysis yesterday as a result of catheter malfunction. The femoral catheter was already removed this morning. Labs reviewed. Continue current management. November 08: Dialysis attempted through the permacath which was put in yesterday by IR. Due to high catheter pressure , dialysis was held and PTAse administered. Dialysis will be tried again tomorrow. Will check labs tomorrow. November 07: Patient due for tunneled catheter insertion today. Will order dialysis tomorrow. Continue to monitor renal parameters. Labs and medications reviewed. November 06: Patient due for tunnel catheter insertion November 07. Serum creatinine is rising. Labs reviewed. Continue per consultants. November 05: Last dialysis November 03. Eliquis on hold. Due tunneled catheter insertion on November 07. Labs are reviewed. Continue current management. November 04: Dialyzed yesterday. Due for insertion of tunneled catheter today. May need to hold Eliquis and reschedule catheter insertion on Friday. Will monitor renal parameters in the meantime. November 03: Dialyzed this morning. Stable from renal standpoint of view. Due for insertion of tunneled catheter tomorrow. November 02: Dialyzed yesterday. Will DC IV fluid. Dialysis tomorrow. Potassium supplement given. Per orders. November 01: Patient currently being dialyzed. Tolerating well. Labs will be reviewed. Continue per consultants. October 31: Patient was dialyzed yesterday. Clinically doing better. We will continue to monitor renal parameters. Dialysis as needed. October 30: Serum creatinine rising. Patient due to have a temporary dialysis catheter and due for dialysis today. Will continue to follow-up renal parameters. Patient remains full code. October 29: Serum creatinine rising. Serum creatinine 4.5 today. Calculated creatinine clearance is 12. Kidney ultrasound ordered yesterday results were reviewed. Patient appears to have acute renal failure due to underlying sepsis and nephrotoxic medications. Patient requires dialysis treatment. Ordered to obtain consent from the responsible green party. Will communicate with PMD and or he is coverage. October 28: Serum creatinine higher to 4.2 today. Blood pressure appears more stable. In view of worsening renal failure, will order stat kidney ultrasound and urine studies. Continue to monitor renal parameters. Patient is full code. Worsening renal parameters may lead to hemodialysis treatment. October 27: Patient pulled out the Lyles catheter. Serum creatinine went up to 3.8. Blood pressure somewhat low. Heart rate in 50s. Will discontinue Coreg. We will continue to monitor renal parameters. October 26: Serum creatinine lower again today. Will abort the dialysis plan. Continue per consultants. Continue to monitor renal parameters. Medication list reviewed. October 25: Clinically improving. Serum creatinine lower. Urine output increased. No dialysis planned at this time. Continue per consultants. October 24: Patient's respiratory status somewhat improved. Serum creatinine down to 3.9. Urinary output somewhat increased. Will hold placement of dialysis catheter at this time. Blood pressure medication adjusted. Continue to monitor renal parameters. Per orders. October 23: Patient remains on BiPAP. More Kayexalate ordered. Will consider hemodialysis to correct fluid overload and hyperkalemia and acidosis. Will discuss with PMD. Meanwhile IV Synthroid started. Discussed with RN Timothy Patient already transfused 1 unit for severe anemia previously Will initiate Epogen 10,000 units subcutaneously 1 dose of IV iron Venofer 200 g IV Kayexalate for hyperkalemia as needed 2D echocardiogram ordered, ejection fraction is reported normal Kidney ultrasound ordered: Kidneys: Right kidney measures 9.1 cm in length. No hydronephrosis or stone. Left kidney not visualized due to patient's body habitus. Avoid nephrotoxic's Monitor renal parameters Will hold insulin and hypoglycemic agents until hypoglycemia is reasonably resolved Subjective ROS Limited/Unobtainable: No Constitutional: Reports: malaise, weakness Objective Objective Last 24 Hour Vital Signs Date Time Temp Pulse Resp B/P (MAP) Pulse Ox O2 Delivery O2 Flow Rate FiO2 11/10/19 12:00 Nasal Cannula 2.0 Nasal Cannula 2.0 11/10/19 12:00 2.0 11/10/19 12:00 98.2 83 18 149/54 (85) 100 11/10/19 11:00 Nasal Cannula 2.0 28 11/10/19 08:58 77 136/51 11/10/19 08:00 Nasal Cannula 2.0 Nasal Cannula 2.0 11/10/19 08:00 98.2 80 18 136/51 (79) 100 11/10/19 08:00 2.0 11/10/19 07:56 82 11/10/19 07:13 97 Nasal Cannula 2.0 28 11/10/19 07:02 99 147/77 11/10/19 05:14 100 20 98 30 11/10/19 04:00 97.0 97 18 148/63 (91) 100 11/10/19 04:00 Bi-pap Bi-pap 11/10/19 03:35 83 11/10/19 03:10 88 30 98 30 11/10/19 00:54 93 24 97 30 11/10/19 00:00 Nasal Cannula 4.0 Nasal Cannula 4.0 11/10/19 00:00 98.1 86 18 147/74 (98) 100 11/10/19 00:00 4.0 11/09/19 23:33 91 11/09/19 22:55 90 27 97 30 11/09/19 20:00 Nasal Cannula 4.0 Nasal Cannula 4.0 11/09/19 20:00 4.0 11/09/19 20:00 97.4 97 18 149/64 (92) 100 11/09/19 19:24 80 11/09/19 19:11 97 Nasal Cannula 2.0 28 11/09/19 17:19 80 144/63 11/09/19 16:00 4.0 11/09/19 16:00 80 11/09/19 16:00 97.3 79 19 144/63 (90) 100 11/09/19 16:00 Nasal Cannula 4.0 Nasal Cannula 4.0 11/09/19 15:33 79 18 99 11/09/19 15:31 80 18 99 11/09/19 14:40 97.9 80 15 161/59 100 Nasal Cannula 3 11/09/19 14:34 81 18 162/61 100 Nasal Cannula 3 11/09/19 14:24 79 13 167/61 100 Nasal Cannula 3 11/09/19 14:19 81 19 164/59 100 Nasal Cannula 3 11/09/19 14:14 97.6 80 18 164/69 99 Nasal Cannula 3 Intake and Output 11/09/19 11/10/19 19:00 07:00 Intake Total 320 ml 170 ml Output Total 1000 ml Balance -680 ml 170 ml Free Water 30 ml 50 ml IV Total 250 ml Tube Feeding 40 ml 120 ml Hemodialysis UF 1000 ml # Voids 2 3 # Bowel Movements 2 Laboratory Tests 11/09/19 17:10: POC Whole Blood Glucose 128H 11/09/19 18:10: White Blood Count 9.5, Red Blood Count 2.76L, Hemoglobin 8.5L, Hematocrit 29.0L , Mean Corpuscular Volume 105H, Mean Corpuscular Hemoglobin 30.8, Mean Corpuscular Hemoglobin Concent 29.3L, Red Cell Distribution Width 17.4H, Platelet Count 128L, Mean Platelet Volume 7.4, Neutrophils (%) (Auto) 87.1H, Lymphocytes (%) (Auto) 8.5L, Monocytes (%) (Auto) 3.0, Eosinophils (%) (Auto) 0.9, Basophils (%) (Auto) 0.5 11/10/19 03:25: White Blood Count 10.3, Red Blood Count 2.71L, Hemoglobin 8.1L, Hematocrit 27.7L , Mean Corpuscular Volume 102H, Mean Corpuscular Hemoglobin 30.0, Mean Corpuscular Hemoglobin Concent 29.3L, Red Cell Distribution Width 16.9H, Platelet Count 145L, Mean Platelet Volume 7.7, Neutrophils (%) (Auto) , Lymphocytes (%) (Auto) , Monocytes (%) (Auto) , Eosinophils (%) (Auto) , Basophils (%) (Auto) , Differential Total Cells Counted 100, Neutrophils % ( Manual) 92H, Lymphocytes % (Manual) 4L, Monocytes % (Manual) 4, Eosinophils % ( Manual) 0, Basophils % (Manual) 0, Band Neutrophils 0, Platelet Estimate DecreasedL, Platelet Morphology Normal, Hypochromasia 1+, Anisocytosis 1+, Macrocytosis 1+, Sodium Level 140, Potassium Level 4.5, Chloride Level 104, Carbon Dioxide Level 33H, Anion Gap 3L, Blood Urea Nitrogen 62H, Creatinine 3.7H , Estimat Glomerular Filtration Rate 15.8, Glucose Level 153H, Calcium Level 8.7 , Phosphorus Level 2.9, Magnesium Level 2.5H, Total Bilirubin 0.5, Aspartate Amino Transf (AST/SGOT) 20, Alanine Aminotransferase (ALT/SGPT) 16, Alkaline Phosphatase 87, C-Reactive Protein, Quantitative 8.9H, Total Protein 5.5L, Albumin 1.9L, Globulin 3.6, Albumin/Globulin Ratio 0.5L 11/10/19 05:51: POC Whole Blood Glucose [Pending] 11/10/19 08:56: POC Whole Blood Glucose [Pending] 11/10/19 12:41: POC Whole Blood Glucose 131H Height (Feet): 5 Height (Inches): 4.00 Weight (Pounds): 202 General Appearance: no apparent distress, lethargic EENT: other - On nasal cannula Cardiovascular: normal rate Respiratory/Chest: decreased breath sounds Abdomen: distended Objective No change Naveed Vanegas MD Nov 10, 2019 13:37
[2019-11-10 16:00] VITALS: BP 146/59
[2019-11-10] MEDS ORDERED: Eliquis 2.5mg tablet ORAL SCH (18:00)
[2019-11-10 20:00] VITALS: BP 140/55
--- NOTE | 2019-11-10 20:37 | Cardiology Progress Note ---
Assessment/Plan Assessment/Plan 1. Sinus tachycardia, start metoprolol. Will monitor HR in face of recent ludivina episode. 2. Acute HFpEF with elevated BNP, 2D echocardiography shows normal LV systolic with LVEF of about 55% but e/o increased intracardiac filling pressure. 3. Multiple risk factors for coronary artery disease include diabetes mellitus and hypertension. 4. History of peripheral vascular disease, status post partial foot amputation. 5. Acute on chronic renal failure. 6. Anemia of chronic disease. Subjective Subjective Sinus rhythm at rate of 82. Was tachycardic early this morning. Objective Last 24 Hour Vital Signs Date Time Temp Pulse Resp B/P (MAP) Pulse Ox O2 Delivery O2 Flow Rate FiO2 11/10/19 20:00 81 11/10/19 18:56 100 Nasal Cannula 2.0 28 11/10/19 17:36 78 146/59 11/10/19 16:00 Nasal Cannula 2.0 Nasal Cannula 2.0 11/10/19 16:00 98.9 89 18 146/59 (88) 99 11/10/19 16:00 2.0 11/10/19 16:00 87 11/10/19 12:00 Nasal Cannula 2.0 Nasal Cannula 2.0 11/10/19 12:00 2.0 11/10/19 12:00 98.2 83 18 149/54 (85) 100 11/10/19 11:41 72 11/10/19 11:00 Nasal Cannula 2.0 28 11/10/19 10:31 89 11/10/19 08:58 77 136/51 11/10/19 08:00 Nasal Cannula 2.0 Nasal Cannula 2.0 11/10/19 08:00 98.2 80 18 136/51 (79) 100 11/10/19 08:00 2.0 11/10/19 07:56 82 11/10/19 07:13 97 Nasal Cannula 2.0 28 11/10/19 07:02 99 147/77 11/10/19 05:14 100 20 98 30 11/10/19 04:00 97.0 97 18 148/63 (91) 100 11/10/19 04:00 Bi-pap Bi-pap 11/10/19 03:35 83 11/10/19 03:10 88 30 98 30 11/10/19 00:54 93 24 97 30 11/10/19 00:00 Nasal Cannula 4.0 Nasal Cannula 4.0 11/10/19 00:00 98.1 86 18 147/74 (98) 100 11/10/19 00:00 4.0 11/09/19 23:33 91 11/09/19 22:55 90 27 97 30 Intake and Output 11/09/19 11/10/19 19:00 07:00 Intake Total 320 ml 170 ml Output Total 1000 ml Balance -680 ml 170 ml Free Water 30 ml 50 ml IV Total 250 ml Tube Feeding 40 ml 120 ml Hemodialysis UF 1000 ml # Voids 2 3 # Bowel Movements 2 2D Echo: LVEF 55%, Pseudo-normal LV physio grade II LV Diastolic fxn, RVSP 22, NC. Laboratory Tests Test 11/10/19 03:25 11/10/19 05:51 11/10/19 08:56 11/10/19 12:41 White Blood Count 10.3 K/UL (4.8-10.8) Red Blood Count 2.71 M/UL (4.70-6.10) L Hemoglobin 8.1 G/DL (14.2-18.0) L Hematocrit 27.7 % (42.0-52.0) L Mean Corpuscular Volume 102 FL (80-99) H Mean Corpuscular Hemoglobin 30.0 PG (27.0-31.0) Mean Corpuscular Hemoglobin Concent 29.3 G/DL (32.0-36.0) L Red Cell Distribution Width 16.9 % (11.6-14.8) H Platelet Count 145 K/UL (150-450) L Mean Platelet Volume 7.7 FL (6.5-10.1) Neutrophils (%) (Auto) % (45.0-75.0) Lymphocytes (%) (Auto) % (20.0-45.0) Monocytes (%) (Auto) % (1.0-10.0) Eosinophils (%) (Auto) % (0.0-3.0) Basophils (%) (Auto) % (0.0-2.0) Differential Total Cells Counted 100 Neutrophils % (Manual) 92 % (45-75) H Lymphocytes % (Manual) 4 % (20-45) L Monocytes % (Manual) 4 % (1-10) Eosinophils % (Manual) 0 % (0-3) Basophils % (Manual) 0 % (0-2) Band Neutrophils 0 % (0-8) Platelet Estimate Decreased L Platelet Morphology Normal Hypochromasia 1+ Anisocytosis 1+ Macrocytosis 1+ Sodium Level 140 MMOL/L (136-145) Potassium Level 4.5 MMOL/L (3.5-5.1) Chloride Level 104 MMOL/L (98-107) Carbon Dioxide Level 33 MMOL/L (21-32) H Anion Gap 3 mmol/L (5-15) L Blood Urea Nitrogen 62 mg/dL (7-18) H Creatinine 3.7 MG/DL (0.55-1.30) H Estimat Glomerular Filtration Rate 15.8 mL/min (>60) Glucose Level 153 MG/DL (74-106) H Calcium Level 8.7 MG/DL (8.5-10.1) Phosphorus Level 2.9 MG/DL (2.5-4.9) Magnesium Level 2.5 MG/DL (1.8-2.4) H Total Bilirubin 0.5 MG/DL (0.2-1.0) Aspartate Amino Transf (AST/SGOT) 20 U/L (15-37) Alanine Aminotransferase (ALT/SGPT) 16 U/L (12-78) Alkaline Phosphatase 87 U/L (46-116) C-Reactive Protein, Quantitative 8.9 mg/dL (0.00-0.90) H Total Protein 5.5 G/DL (6.4-8.2) L Albumin 1.9 G/DL (3.4-5.0) L Globulin 3.6 g/dL Albumin/Globulin Ratio 0.5 (1.0-2.7) L POC Whole Blood Glucose Pending Pending 131 MG/DL (74-106) H Test 11/10/19 17:34 POC Whole Blood Glucose Pending Objective HEENT: Atraumatic and normocephalic. Anicteric. Pupils are equal, round, and reactive to light and accommodation. Extraocular muscles intact. NECK: JVP less than 5 cm. No carotid bruit. Carotid upstroke is 2+ bilaterally. CARDIOVASCULAR: Normal S1, S2. Regular rate and rhythm. No murmurs, gallops, or rubs. Bradycardic. LUNGS: Bilateral rhonchi. ABDOMEN: Soft, nontender, and nondistended. No hepatosplenomegaly. Positive bowel sounds. EXTREMITIES: Bilateral partial foot amputations. Chris Hanley MD Nov 10, 2019 20:37
[2019-11-10] MEDS: Dyna-Hex 2% Top Sol 2oz TOPIC SCH (21:32)
[2019-11-10] MEDS: Miralax 17gm pkt NG SCH (21:33)
[2019-11-10] MEDS: Epoetin Alfa-EPBX(ESRD on dialysis)10,000 unit/ml vial SUBQ SCH (21:36)
--- NOTE | 2019-11-10 23:50 | Psych Consult Progress Note ---
Psychiatry Progress Note Psychiatry Progress Note Subjective the pt is confused agitations disoriented Medications Current Medications Medications (Trade) Dose Ordered Sig/Cammy Route PRN Reason Start Time Stop Time Status Last Admin Dose Admin Acetaminophen (Tylenol) 650 mg Q6H PRN NG Pain 3-5 11/11/19 00:00 12/02/19 00:00 Amlodipine Besylate (Norvasc) 5 mg BID NG 11/11/19 09:00 11/25/19 08:59 Apixaban (Eliquis) 2.5 mg BID NG 11/11/19 09:00 02/08/20 17:59 Atorvastatin Calcium (Lipitor) 10 mg BEDTIME NG 11/11/19 21:00 01/21/20 20:59 Chlorhexidine Gluconate (Yi-Hex 2%) 1 applic DAILY@1999 TOPIC 11/11/19 20:00 01/31/20 19:59 Dextrose (Dextrose 50%) 25 ml Q30M PRN IV Hypoglycemia 11/10/19 23:45 01/20/20 21:44 Dextrose (Dextrose 50%) 50 ml Q30M PRN IV Hypoglycemia 11/10/19 23:45 01/20/20 21:44 Docusate Sodium (Colace) 100 mg THREE TIMES A DAY NG 11/11/19 09:00 12/02/19 17:59 Epoetin William (Epoetin William(ESRD on dialysis)) 10,000 unit FRI-FRI-FRI SUBQ 11/12/19 21:00 02/01/20 20:59 Haloperidol (Haldol) 5 mg Q12H PRN NG Agitation 11/11/19 00:00 12/26/19 00:00 Haloperidol Lactate (Haldol) 5 mg Q6H PRN IM Agitation 11/11/19 00:00 12/10/19 00:00 Hydralazine HCl (Apresoline) 10 mg Q4H PRN IV For High Blood Pressure 11/11/19 00:00 01/24/20 00:00 Insulin Aspart (NovoLOG) Q6HR SUBQ 11/11/19 00:00 01/31/20 06:29 Lactulose (Cephulac) 10 gm BID NG 11/11/19 09:00 12/01/19 08:59 Lansoprazole (Prevacid) 30 mg DAILY GT 11/11/19 09:00 12/11/19 08:59 Levothyroxine Sodium (Synthroid) 75 mcg DAILY@0630 NG 11/11/19 06:30 12/04/19 06:29 Metoprolol Tartrate (Lopressor) 25 mg Q12HR NG 11/11/19 09:00 02/08/20 20:59 Polyethylene Glycol (Miralax) 17 gm BEDTIME NG 11/11/19 21:00 12/01/19 20:59 Sennosides (Senokot) 8.6 mg HSPRN PRN NG Constipation 11/11/19 00:00 12/02/19 00:00 Sevelamer Carbonate (Renvela) 1,600 mg THREE TIMES A DAY NG 11/11/19 09:00 01/21/20 17:59 Neurological/Psychiatric: Denies: no symptoms, anxiety, depressed, emotional problems, headache, numbness, paresthesia, pre-existing deficit, seizure, tingling, tremors, weakness, other Allergies: Coded Allergies: PENICILLINS (Verified Allergy, Unknown, 10/25/19) tolerated Ceftriaxone Objective Data Height (Feet): 5 Height (Inches): 4.00 Weight (Pounds): 202 General Appearance: alert, agitated, overweight Appearance: no abnormalities noted Behavior Mannerisms: good eye contact Mental Status Exam - Affect: blunted Mental Status Exam - Mood: anxious, agitated Mental Status Exam - Thought P: tangential, confusion Mental Status Exam - Thought C: delusions (specify) Mental Status Exam - Suicidal: not present Additional Comments: awake, confused, and disoriented. Mood is agitated. Affect is flat. Thought process, there is a paucity of thought content. Thought content, no suicidal or homicidal ideation. Cognition is impaired. Insight and judgment impaired. Dada Finch MD Nov 10, 2019 23:49
[2019-11-11] VITALS: BP 105/59
[2019-11-11] MEDS ORDERED: Sennosides 8.6mg tab NG PRN
[2019-11-11] MEDS ORDERED: Haloperidol 5mg/ml Inj IM PRN
--- NOTE | 2019-11-11 00:30 | Progress Note ---
DATE: 11/10/2019 SUBJECTIVE: The patient has low-grade fever without tachycardia. PHYSICAL EXAMINATION: VITAL SIGNS: Blood pressure 140/55, his pulse is 86, respirations are 16, temperature 99.5. HEENT: Eyes were normal. ENT, mucous membranes were moist and intact. NECK: Supple with no JVD without lymph nodes. Tracheostomy site is clean. LUNGS: Clear without rhonchi, rales, or wheezing. HEART: Normal sounds with regular beats. There is no tachycardia at rest. ABDOMEN: Soft, nontender with normal bowel sounds. Gastrostomy site is clean. EXTREMITIES: Warm without cyanosis, clubbing, edema. LABORATORY AND DIAGNOSTIC DATA: Hemoglobin is 8.1, hematocrit 27.7, MCV of 102, WBC of 9.3, and platelets 145. BUN and creatinine are 62 and 3.7 respectively. Sodium is 140, potassium 4.5, chloride 104, CO2 is 33. Calcium is 8.7. Phosphorus is 2.9. Magnesium is 2.5. Chest x-ray taken on 11/03/2019 unchanged compared to there is slight increase in bilateral pleural effusions. Repeat laboratory tests will be done in the a.m. The patient can be discharged tomorrow back to the extended care facility on his current medications. Ayush Chang M.D. DR: YAMILETH JOB#: [id number] CC:
[2019-11-11 04:00] VITALS: BP 136/51
[2019-11-11] MEDS: NovoLOG Insulin Flexpen SUBQ SCH ×4 (05:31→18:43)
--- NOTE | 2019-11-11 06:31 | Infectious Diseases Prog Note ---
Assessment/Plan 79yo M from SNF who p/w hypoglycemia and resp failure: Acute hypoxic respiratory failure, on BiPAP > 2L NC> RA > 2L NC Rapid COVID neg x2 (10/21, 10/24) Pneumonia on CXR Volume overload 10/30 CXR: Slightly improved 10/25 CXR: Bilateral alveolar densities are unchanged 10/24 Sp cx normal resp demario (prelim) 10/23 CXR: 1. Small layering right pleural effusion, not significantly changed. The previously noted small left pleural effusion is not as evident.Prominent lung markings and haziness, right greater left, which may be related to pulmonary vascular congestion versus pneumonitis. This is not significantly changed.. Subsegmental atelectasis versus infiltrate in the medial left lung base, also not significantly changed. 10/21 CXR: 1. Small bilateral pleural effusions. Bibasilar atelectasis versus pneumonia. 2. Prominent lung markings and hazy opacities in right greater than left lungs may represent artifact versus pulmonary vasculature congestion and edema versus infectious/inflammatory process. 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 10/31 No clear clinical correlate to this imaging finding, s/p 7 days of CTX which is good abx for mastoiditis Hypercapnia, on BiPAP, improving Afebrile No leukocytosis Anemia to 6.8, improved UA neg, UCx neg R/o bacteremia 10/21 BCx NTD ALEXIS on CKD, worsening --> now on HD HBsAg neg Plan: Cont to monitor off abx, s/p 7d of abx for pna, but this also covered for possible mastoiditis ENT to evaluate ears/TMs for signs of underlying mastoiditis, as seen on CT head ; would appreciate the evaluation as pt unable to tell us if he has ear pain/DE LEON , etc; if unable to obtain in house, OK for pt to have outpt ENT f/u for evaluation given that pt has remained AF wo s/sx of ear infection here, and there is no pain on ear exam here (though unable to fully evaluate the inner ears) 11/07 Clindamycin x1 for catheter placement 10/31 SP CTX #7 10/26 SP vancomycin IV #5 Trend resp status Monitor CBC, CMP D/w RN Thank you for this consult. [facility] will continue to follow. Subjective Allergies: Coded Allergies: PENICILLINS (Verified Allergy, Unknown, 10/25/19) tolerated Ceftriaxone AF NAD on NC WBC 8 More awake and alert than prior Objective Last 24 Hour Vital Signs Date Time Temp Pulse Resp B/P (MAP) Pulse Ox O2 Delivery O2 Flow Rate FiO2 11/11/19 05:11 74 20 99 30 11/11/19 04:00 2.0 11/11/19 04:00 Nasal Cannula 2.0 Nasal Cannula 2.0 11/11/19 04:00 97.0 74 20 136/51 (79) 98 11/11/19 04:00 75 11/11/19 03:14 74 22 99 30 11/11/19 01:38 76 22 96 30 11/11/19 00:00 Nasal Cannula 2.0 Nasal Cannula 2.0 11/11/19 00:00 58 11/11/19 00:00 98.1 70 17 105/59 (74) 95 11/10/19 22:39 100 20 98 30 11/10/19 21:00 81 146/59 11/10/19 20:00 2.0 11/10/19 20:00 81 11/10/19 20:00 99.5 86 16 140/55 (83) 99 11/10/19 20:00 Nasal Cannula 2.0 Nasal Cannula 2.0 11/10/19 18:56 100 Nasal Cannula 2.0 28 11/10/19 17:36 78 146/59 11/10/19 16:00 Nasal Cannula 2.0 Nasal Cannula 2.0 11/10/19 16:00 98.9 89 18 146/59 (88) 99 11/10/19 16:00 2.0 11/10/19 16:00 87 11/10/19 12:00 Nasal Cannula 2.0 Nasal Cannula 2.0 11/10/19 12:00 2.0 11/10/19 12:00 98.2 83 18 149/54 (85) 100 11/10/19 11:41 72 11/10/19 11:00 Nasal Cannula 2.0 28 11/10/19 10:31 89 11/10/19 08:58 77 136/51 11/10/19 08:00 Nasal Cannula 2.0 Nasal Cannula 2.0 11/10/19 08:00 98.2 80 18 136/51 (79) 100 11/10/19 08:00 2.0 11/10/19 07:56 82 11/10/19 07:13 97 Nasal Cannula 2.0 28 11/10/19 07:02 99 147/77 Height (Feet): 5 Height (Inches): 4.00 Weight (Pounds): 200 Gen: Older man, NAD in bed CV: RRR Pulm: CTAB anteriorly on NC Abd: Soft, NTND Neuro: Eyes open to voice Laboratory Tests Test 11/10/19 08:56 11/10/19 12:41 11/10/19 17:34 POC Whole Blood Glucose Pending 131 MG/DL (74-106) H Pending Current Medications Medications (Trade) Dose Ordered Sig/Cammy Route PRN Reason Start Time Stop Time Status Last Admin Dose Admin Acetaminophen (Tylenol) 650 mg Q6H PRN NG Pain 3-5 11/11/19 00:00 12/02/19 00:00 Amlodipine Besylate (Norvasc) 5 mg BID NG 11/11/19 09:00 11/25/19 08:59 Apixaban (Eliquis) 2.5 mg BID NG 11/11/19 09:00 02/08/20 17:59 Atorvastatin Calcium (Lipitor) 10 mg BEDTIME NG 11/11/19 21:00 01/21/20 20:59 Chlorhexidine Gluconate (Yi-Hex 2%) 1 applic DAILY@1999 TOPIC 11/11/19 20:00 01/31/20 19:59 Dextrose (Dextrose 50%) 25 ml Q30M PRN IV Hypoglycemia 11/10/19 23:45 01/20/20 21:44 Dextrose (Dextrose 50%) 50 ml Q30M PRN IV Hypoglycemia 11/10/19 23:45 01/20/20 21:44 Docusate Sodium (Colace) 100 mg THREE TIMES A DAY NG 11/11/19 09:00 12/02/19 17:59 Epoetin William (Epoetin William(ESRD on dialysis)) 10,000 unit FRI-FRI-FRI SUBQ 11/12/19 21:00 02/01/20 20:59 Haloperidol (Haldol) 5 mg Q12H PRN NG Agitation 11/11/19 00:00 12/26/19 00:00 Haloperidol Lactate (Haldol) 5 mg Q6H PRN IM Agitation 11/11/19 00:00 12/10/19 00:00 Hydralazine HCl (Apresoline) 10 mg Q4H PRN IV For High Blood Pressure 11/11/19 00:00 01/24/20 00:00 Insulin Aspart (NovoLOG) Q6HR SUBQ 11/11/19 00:00 01/31/20 06:29 Lactulose (Cephulac) 10 gm BID NG 11/11/19 09:00 12/01/19 08:59 Lansoprazole (Prevacid) 30 mg DAILY GT 11/11/19 09:00 12/11/19 08:59 Levothyroxine Sodium (Synthroid) 75 mcg DAILY@0630 NG 11/11/19 06:30 12/04/19 06:29 11/11/19 05:50 Metoprolol Tartrate (Lopressor) 25 mg Q12HR NG 11/11/19 09:00 02/08/20 20:59 Polyethylene Glycol (Miralax) 17 gm BEDTIME NG 11/11/19 21:00 12/01/19 20:59 Sennosides (Senokot) 8.6 mg HSPRN PRN NG Constipation 11/11/19 00:00 12/02/19 00:00 Sevelamer Carbonate (Renvela) 1,600 mg THREE TIMES A DAY NG 11/11/19 09:00 01/21/20 17:59 Mckenna Diallo M.D. Nov 11, 2019 06:31
--- NOTE | 2019-11-11 06:46 | Hematology/Onc Progress Note ---
Assessment/Plan Assessment/Plan Covering Dr. Chang ASSESSMENT AND RECOMMENDATIONS: # Anemia of chronic disease due to underlying chronic medical issues, multifactorial --> Anemia w/u has been reviewed. --> no evidence of hemolysis is noted, peripheral smear has been reviewed --> hgb goal is >7, transfuse as needed --> currently remains stable, occult blood negative --> hgb 8.4->8.6->8.3->8->8.2->9.2-->9.2->8.9-->8.1 --> some blood loss due to hematuria after inflated reyes pulled 8/6 am --> EPOGEN Started # Acute kidney injury r/o potential reversible component --> reviewed meds, those that are renally cleared removed --> as per renal recs, appreciated --> cr 3.5-->4.2 --> Hd started and dw renal # Hypertension, essential --> sbp goal is <140, consider anti-htn as needed --> currently started on hyralazine 25mg po q6h prn sbp >140 # CHF - hx of CHf --> diuresis with lasix as needed --> cardiology recs appreciated prior adm #. Leukocytosis with underlying infectionv stress reaction HISTORY --> per id and better --> for infection, ABX ctx/vanc-->off #. Bilateral lower extremity amputee, metatarsal several years ago #. Hyperkalemia -- kayxelate as needed #. Dvt ppx scds --> apixaban->off for catheter placement 11/07 The time the note was entered does not necessarily correspond to the time the patient was seen. GREATLY APPRECIATE CONSULTATION. Subjective HEENT: Denies: no symptoms, eye pain, blurred vision, tearing, double vision, ear pain, ear discharge, nose pain, nose congestion, throat pain, throat swelling, mouth pain, mouth swelling, other Cardiovascular: Denies: no symptoms, chest pain, edema, irregular heart rate, lightheadedness, palpitations, syncope, other Respiratory: Denies: no symptoms, cough, shortness of breath, SOB with excertion, SOB at rest, sputum, wheezing, other Gastrointestinal/Abdominal: Denies: no symptoms, abdomen distended, abdominal pain, black stools, tarry stools, blood in stool, constipated, diarrhea, difficulty swallowing, nausea, poor appetite, poor fluid intake, rectal bleeding , vomiting, other Genitourinary: Denies: no symptoms, burning, discharge, frequency, flank pain, hematuria, incontinence, pain, urgency, other Neurologic/Psychiatric: Denies: no symptoms, anxiety, depressed, emotional problems, headache, numbness, paresthesia, pre-existing deficit, seizure, tingling, tremors, weakness, other Endocrine: Denies: no symptoms, excessive sweating, flushing, intolerance to cold, intolerance to heat, increased hunger, increased thirst, increased urine, unexplained weight gain, unexplained weight loss, other Hematologic/Lymphatic: Denies: no symptoms, anemia, easy bleeding, easy bruising, adenopathy, other Allergies: Coded Allergies: PENICILLINS (Verified Allergy, Unknown, 10/25/19) tolerated Ceftriaxone Subjective 10/[address] Chang, to do best to avoid haldol, continue restraints, jag rn, on nc, feeling better 10/25 still with some agitation overnight, meds reviewed, jag rn, haldol given in AM 10/26 is on 2l nc, also is on restraints, no night sweats, no bleeding 10/27 reyes catheter has been removed by patient, and resinserted, bed sheets, with bright red blood on exam 10/28 labs are noted, no bleeding, cr is worse, seen by renal, remains edematous 11/04 no major changes, hd as per renal, recs are noted, labs reviewed, pending neuro eval 11/05 is on bipap with restraints, no major changes, no bleeding, labs noted 11/06 remains agitated, is off eliquis for catheter placement for tuesday 11/07 on bipap, remains agitated, jag salas, procedure today 11/08 remains confused, no bleeding, meds noted, hgb 8.9, may need peg 11/09 on bipap, remains confused in restraints, jag rn, hgb lower 11/10 no new events, overnight bipap, now 2oxygen nc, cbc is pending, right chest pc Objective Objective Current Medications Medications (Trade) Dose Ordered Sig/Cammy Route PRN Reason Start Time Stop Time Status Last Admin Dose Admin Acetaminophen (Tylenol) 650 mg Q6H PRN NG Pain 3-5 11/11/19 00:00 12/02/19 00:00 Amlodipine Besylate (Norvasc) 5 mg BID NG 11/11/19 09:00 11/25/19 08:59 Apixaban (Eliquis) 2.5 mg BID NG 11/11/19 09:00 02/08/20 17:59 Atorvastatin Calcium (Lipitor) 10 mg BEDTIME NG 11/11/19 21:00 01/21/20 20:59 Chlorhexidine Gluconate (Yi-Hex 2%) 1 applic DAILY@2000 TOPIC 11/11/19 20:00 01/31/20 19:59 Dextrose (Dextrose 50%) 25 ml Q30M PRN IV Hypoglycemia 11/10/19 23:45 01/20/20 21:44 Dextrose (Dextrose 50%) 50 ml Q30M PRN IV Hypoglycemia 11/10/19 23:45 01/20/20 21:44 Docusate Sodium (Colace) 100 mg THREE TIMES A DAY NG 11/11/19 09:00 12/02/19 17:59 Epoetin William (Epoetin William(ESRD on dialysis)) 10,000 unit FRI-FRI-FRI SUBQ 11/12/19 21:00 02/01/20 20:59 Haloperidol (Haldol) 5 mg Q12H PRN NG Agitation 11/11/19 00:00 12/26/19 00:00 Haloperidol Lactate (Haldol) 5 mg Q6H PRN IM Agitation 11/11/19 00:00 12/10/19 00:00 Hydralazine HCl (Apresoline) 10 mg Q4H PRN IV For High Blood Pressure 11/11/19 00:00 01/24/20 00:00 Insulin Aspart (NovoLOG) Q6HR SUBQ 11/11/19 00:00 01/31/20 06:29 Lactulose (Cephulac) 10 gm BID NG 11/11/19 09:00 12/01/19 08:59 Lansoprazole (Prevacid) 30 mg DAILY GT 11/11/19 09:00 12/11/19 08:59 Levothyroxine Sodium (Synthroid) 75 mcg DAILY@0630 NG 11/11/19 06:30 12/04/19 06:29 11/11/19 05:50 Metoprolol Tartrate (Lopressor) 25 mg Q12HR NG 11/11/19 09:00 02/08/20 20:59 Polyethylene Glycol (Miralax) 17 gm BEDTIME NG 11/11/19 21:00 12/01/19 20:59 Sennosides (Senokot) 8.6 mg HSPRN PRN NG Constipation 11/11/19 00:00 12/02/19 00:00 Sevelamer Carbonate (Renvela) 1,600 mg THREE TIMES A DAY NG 11/11/19 09:00 01/21/20 17:59 Last 24 Hour Vital Signs Date Time Temp Pulse Resp B/P (MAP) Pulse Ox O2 Delivery O2 Flow Rate FiO2 11/11/19 05:11 74 20 99 30 11/11/19 04:00 2.0 11/11/19 04:00 Nasal Cannula 2.0 Nasal Cannula 2.0 11/11/19 04:00 97.0 74 20 136/51 (79) 98 11/11/19 04:00 75 11/11/19 03:14 74 22 99 30 11/11/19 01:38 76 22 96 30 11/11/19 00:00 Nasal Cannula 2.0 Nasal Cannula 2.0 11/11/19 00:00 58 11/11/19 00:00 98.1 70 17 105/59 (74) 95 11/10/19 22:39 100 20 98 30 11/10/19 21:00 81 146/59 11/10/19 20:00 2.0 11/10/19 20:00 81 11/10/19 20:00 99.5 86 16 140/55 (83) 99 11/10/19 20:00 Nasal Cannula 2.0 Nasal Cannula 2.0 11/10/19 18:56 100 Nasal Cannula 2.0 28 11/10/19 17:36 78 146/59 11/10/19 16:00 Nasal Cannula 2.0 Nasal Cannula 2.0 11/10/19 16:00 98.9 89 18 146/59 (88) 99 11/10/19 16:00 2.0 11/10/19 16:00 87 11/10/19 12:00 Nasal Cannula 2.0 Nasal Cannula 2.0 11/10/19 12:00 2.0 11/10/19 12:00 98.2 83 18 149/54 (85) 100 11/10/19 11:41 72 11/10/19 11:00 Nasal Cannula 2.0 28 11/10/19 10:31 89 11/10/19 08:58 77 136/51 11/10/19 08:00 Nasal Cannula 2.0 Nasal Cannula 2.0 11/10/19 08:00 98.2 80 18 136/51 (79) 100 11/10/19 08:00 2.0 11/10/19 07:56 82 11/10/19 07:13 97 Nasal Cannula 2.0 28 11/10/19 07:02 99 147/77 11/10/19 05:14 100 20 98 30 11/10/19 04:00 97.0 97 18 148/63 (91) 100 11/10/19 04:00 Bi-pap Bi-pap 11/10/19 03:35 83 11/10/19 03:10 88 30 98 30 11/10/19 00:54 93 24 97 30 11/10/19 00:00 Nasal Cannula 4.0 Nasal Cannula 4.0 11/10/19 00:00 98.1 86 18 147/74 (98) 100 11/10/19 00:00 4.0 11/09/19 23:33 91 11/09/19 22:55 90 27 97 30 11/09/19 20:00 Nasal Cannula 4.0 Nasal Cannula 4.0 11/09/19 20:00 4.0 11/09/19 20:00 97.4 97 18 149/64 (92) 100 11/09/19 19:24 80 11/09/19 19:11 97 Nasal Cannula 2.0 28 11/09/19 17:19 80 144/63 11/09/19 16:00 4.0 11/09/19 16:00 80 11/09/19 16:00 97.3 79 19 144/63 (90) 100 11/09/19 16:00 Nasal Cannula 4.0 Nasal Cannula 4.0 11/09/19 15:33 79 18 99 20 15:31 80 18 99 11/09/19 14:40 97.9 80 15 161/59 100 Nasal Cannula 3 11/09/19 14:34 81 18 162/61 100 Nasal Cannula 3 11/09/19 14:24 79 13 167/61 100 Nasal Cannula 3 11/09/19 14:19 81 19 164/59 100 Nasal Cannula 3 11/09/19 14:14 97.6 80 18 164/69 99 Nasal Cannula 3 11/09/19 12:00 4.0 11/09/19 12:00 Nasal Cannula 4.0 Nasal Cannula 4.0 11/09/19 12:00 98.7 80 19 118/50 (72) 99 11/09/19 12:00 76 11/09/19 08:42 87 150/59 11/09/19 08:00 4.0 11/09/19 08:00 99.2 89 20 148/70 (96) 100 11/09/19 08:00 Nasal Cannula 4.0 Nasal Cannula 4.0 11/09/19 07:40 87 11/09/19 07:02 100 Nasal Cannula 3.0 32 Intake and Output 11/10/19 11/11/19 19:00 07:00 Intake Total 430 ml Output Total 2050 ml 20 ml Balance -1620 ml -20 ml Free Water 150 ml Tube Feeding 280 ml Output Urine Total 50 ml 20 ml Hemodialysis UF 2000 ml # Bowel Movements 2 Labs Test 11/08/19 08:10 11/08/19 13:12 11/08/19 17:26 11/08/19 23:41 Prothrombin Time 11.7 SEC (9.30-11.50) Prothromb Time International Ratio 1.1 (0.9-1.1) Activated Partial Thromboplast Time 30 SEC (23-33) Sodium Level 144 MMOL/L (136-145) Potassium Level 4.4 MMOL/L (3.5-5.1) Chloride Level 106 MMOL/L (98-107) Carbon Dioxide Level 36 MMOL/L (21-32) Anion Gap 2 mmol/L (5-15) Blood Urea Nitrogen 65 mg/dL (7-18) Creatinine 4.1 MG/DL (0.55-1.30) Estimat Glomerular Filtration Rate 14.1 mL/min (>60) Glucose Level 143 MG/DL (74-106) Calcium Level 8.7 MG/DL (8.5-10.1) Phosphorus Level 3.5 MG/DL (2.5-4.9) Magnesium Level 2.7 MG/DL (1.8-2.4) Total Bilirubin 0.5 MG/DL (0.2-1.0) Aspartate Amino Transf (AST/SGOT) 18 U/L (15-37) Alanine Aminotransferase (ALT/SGPT) 19 U/L (12-78) Alkaline Phosphatase 88 U/L (46-116) Total Protein 5.1 G/DL (6.4-8.2) Albumin 2.2 G/DL (3.4-5.0) Globulin 2.9 g/dL Albumin/Globulin Ratio 0.8 (1.0-2.7) POC Whole Blood Glucose 154 MG/DL (74-106) 155 MG/DL (74-106) Test 11/09/19 03:40 11/09/19 05:32 11/09/19 12:01 11/09/19 17:10 White Blood Count 10.9 K/UL (4.8-10.8) Red Blood Count 2.94 M/UL (4.70-6.10) Hemoglobin 8.9 G/DL (14.2-18.0) Hematocrit 30.0 % (42.0-52.0) Mean Corpuscular Volume 102 FL (80-99) Mean Corpuscular Hemoglobin 30.2 PG (27.0-31.0) Mean Corpuscular Hemoglobin Concent 29.7 G/DL (32.0-36.0) Red Cell Distribution Width 16.4 % (11.6-14.8) Platelet Count 153 K/UL (150-450) Mean Platelet Volume 7.1 FL (6.5-10.1) Neutrophils (%) (Auto) % (45.0-75.0) Lymphocytes (%) (Auto) % (20.0-45.0) Monocytes (%) (Auto) % (1.0-10.0) Eosinophils (%) (Auto) % (0.0-3.0) Basophils (%) (Auto) % (0.0-2.0) Prothrombin Time 11.6 SEC (9.30-11.50) Prothromb Time International Ratio 1.1 (0.9-1.1) Sodium Level 141 MMOL/L (136-145) Potassium Level 4.7 MMOL/L (3.5-5.1) Chloride Level 105 MMOL/L (98-107) Carbon Dioxide Level 33 MMOL/L (21-32) Anion Gap 3 mmol/L (5-15) Blood Urea Nitrogen 71 mg/dL (7-18) Creatinine 4.2 MG/DL (0.55-1.30) Estimat Glomerular Filtration Rate 13.7 mL/min (>60) Glucose Level 156 MG/DL (74-106) Calcium Level 9.0 MG/DL (8.5-10.1) POC Whole Blood Glucose 163 MG/DL (74-106) 130 MG/DL (74-106) 128 MG/DL (74-106) Test 11/09/19 18:10 11/10/19 03:25 11/10/19 05:51 11/10/19 08:56 White Blood Count 9.5 K/UL (4.8-10.8) 10.3 K/UL (4.8-10.8) Red Blood Count 2.76 M/UL (4.70-6.10) 2.71 M/UL (4.70-6.10) Hemoglobin 8.5 G/DL (14.2-18.0) 8.1 G/DL (14.2-18.0) Hematocrit 29.0 % (42.0-52.0) 27.7 % (42.0-52.0) Mean Corpuscular Volume 105 FL (80-99) 102 FL (80-99) Mean Corpuscular Hemoglobin 30.8 PG (27.0-31.0) 30.0 PG (27.0-31.0) Mean Corpuscular Hemoglobin Concent 29.3 G/DL (32.0-36.0) 29.3 G/DL (32.0-36.0) Red Cell Distribution Width 17.4 % (11.6-14.8) 16.9 % (11.6-14.8) Platelet Count 128 K/UL (150-450) 145 K/UL (150-450) Mean Platelet Volume 7.4 FL (6.5-10.1) 7.7 FL (6.5-10.1) Neutrophils (%) (Auto) 87.1 % (45.0-75.0) % (45.0-75.0) Lymphocytes (%) (Auto) 8.5 % (20.0-45.0) % (20.0-45.0) Monocytes (%) (Auto) 3.0 % (1.0-10.0) % (1.0-10.0) Eosinophils (%) (Auto) 0.9 % (0.0-3.0) % (0.0-3.0) Basophils (%) (Auto) 0.5 % (0.0-2.0) % (0.0-2.0) Differential Total Cells Counted 100 Neutrophils % (Manual) 92 % (45-75) Lymphocytes % (Manual) 4 % (20-45) Monocytes % (Manual) 4 % (1-10) Eosinophils % (Manual) 0 % (0-3) Basophils % (Manual) 0 % (0-2) Band Neutrophils 0 % (0-8) Platelet Estimate Decreased Platelet Morphology Normal Hypochromasia 1+ Anisocytosis 1+ Macrocytosis 1+ Sodium Level 140 MMOL/L (136-145) Potassium Level 4.5 MMOL/L (3.5-5.1) Chloride Level 104 MMOL/L (98-107) Carbon Dioxide Level 33 MMOL/L (21-32) Anion Gap 3 mmol/L (5-15) Blood Urea Nitrogen 62 mg/dL (7-18) Creatinine 3.7 MG/DL (0.55-1.30) Estimat Glomerular Filtration Rate 15.8 mL/min (>60) Glucose Level 153 MG/DL (74-106) Calcium Level 8.7 MG/DL (8.5-10.1) Phosphorus Level 2.9 MG/DL (2.5-4.9) Magnesium Level 2.5 MG/DL (1.8-2.4) Total Bilirubin 0.5 MG/DL (0.2-1.0) Aspartate Amino Transf (AST/SGOT) 20 U/L (15-37) Alanine Aminotransferase (ALT/SGPT) 16 U/L (12-78) Alkaline Phosphatase 87 U/L (46-116) C-Reactive Protein, Quantitative 8.9 mg/dL (0.00-0.90) Total Protein 5.5 G/DL (6.4-8.2) Albumin 1.9 G/DL (3.4-5.0) Globulin 3.6 g/dL Albumin/Globulin Ratio 0.5 (1.0-2.7) Test 11/10/19 12:41 11/10/19 17:34 POC Whole Blood Glucose 131 MG/DL (74-106) Height (Feet): 5 Height (Inches): 4.00 Weight (Pounds): 200 Objective GENERAL: Not in acute distress. PULMONARY: Decreased breath sounds. ++ bipap +ngt CHEST: ++permacath CARDIOVASCULAR: Regular rate. No S3 or S4. ABDOMEN: Soft, nontender, nondistended. EXTREMITIES: 1+ edema. No cyanosis, swelling, or edema. 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 Melvin Rizzo MD Nov 11, 2019 06:46
[2019-11-11 07:34] LABS: BASOPHILS % (AUTO) 0.6 % (0.0-2.0); EOSINOPHILS % (AUTO) 1.5 % (0.0-3.0); LYMPHOCYTES % (AUTO) 10.9 % (20.0-45.0); MEAN CORPUSCULAR VOLUME 103 FL (80-99); MONOCYTES % (AUTO) 4.2 % (1.0-10.0); NEUTROPHILS % (AUTO) 82.8 % (45.0-75.0); PLATELET COUNT 146 K/UL (150-450); RED BLOOD COUNT 2.61 M/UL (4.70-6.10); RED CELL DISTRIBUTION WIDTH 16.9 % (11.6-14.8); WHITE BLOOD COUNT 8.2 K/UL (4.8-10.8)
[2019-11-11 08:00] VITALS: BP 159/57
[2019-11-11] MEDS: Lactulose 10gm/15ml UDC NG SCH ×2 (09:00→18:17)
[2019-11-11] MEDS: Docusate 100mg/10ml Liq NG SCH ×3 (09:53→18:17)
[2019-11-11] MEDS: Eliquis 2.5mg tablet NG SCH ×2 (09:53→18:18)
[2019-11-11] MEDS: Renvela 800mg Pkt NG SCH ×3 (09:54→18:18)
--- NOTE | 2019-11-11 10:36 | Nephrology Progress Note ---
Assessment/Plan Problem List: (1) Renal failure (ARF), acute on chronic (2) Metabolic acidosis (3) Electrolyte imbalance Assessment: Hyponatremia and hyperkalemia (4) Anemia (5) CHF (congestive heart failure) Assessment 79-year-old male is admitted for hypoglycemia Patient has renal failure which appears to be acute on chronic Hyperkalemia Hyponatremia CHF, pleural effusion, pneumonia Anemia Metabolic acidosis Hypothyroidism Plan November 10: Patient was dialyzed yesterday. Labs reviewed. Stable from renal standpoint of view. November 09: Patient due for dialysis today due to incomplete dialysis yesterday as a result of catheter malfunction. The femoral catheter was already removed this morning. Labs reviewed. Continue current management. November 08: Dialysis attempted through the permacath which was put in yesterday by IR. Due to high catheter pressure , dialysis was held and PTAse administered. Dialysis will be tried again tomorrow. Will check labs tomorrow. November 07: Patient due for tunneled catheter insertion today. Will order dialysis tomorrow. Continue to monitor renal parameters. Labs and medications reviewed. November 06: Patient due for tunnel catheter insertion November 07. Serum creatinine is rising. Labs reviewed. Continue per consultants. November 05: Last dialysis November 03. Eliquis on hold. Due tunneled catheter insertion on November 07. Labs are reviewed. Continue current management. November 04: Dialyzed yesterday. Due for insertion of tunneled catheter today. May need to hold Eliquis and reschedule catheter insertion on Friday. Will monitor renal parameters in the meantime. November 03: Dialyzed this morning. Stable from renal standpoint of view. Due for insertion of tunneled catheter tomorrow. November 02: Dialyzed yesterday. Will DC IV fluid. Dialysis tomorrow. Potassium supplement given. Per orders. November 01: Patient currently being dialyzed. Tolerating well. Labs will be reviewed. Continue per consultants. October 31: Patient was dialyzed yesterday. Clinically doing better. We will continue to monitor renal parameters. Dialysis as needed. October 30: Serum creatinine rising. Patient due to have a temporary dialysis catheter and due for dialysis today. Will continue to follow-up renal parameters. Patient remains full code. October 29: Serum creatinine rising. Serum creatinine 4.5 today. Calculated creatinine clearance is 12. Kidney ultrasound ordered yesterday results were reviewed. Patient appears to have acute renal failure due to underlying sepsis and nephrotoxic medications. Patient requires dialysis treatment. Ordered to obtain consent from the responsible republican. Will communicate with PMD and or he is coverage. October 28: Serum creatinine higher to 4.2 today. Blood pressure appears more stable. In view of worsening renal failure, will order stat kidney ultrasound and urine studies. Continue to monitor renal parameters. Patient is full code. Worsening renal parameters may lead to hemodialysis treatment. October 27: Patient pulled out the Lyles catheter. Serum creatinine went up to 3.8. Blood pressure somewhat low. Heart rate in 50s. Will discontinue Coreg. We will continue to monitor renal parameters. October 26: Serum creatinine lower again today. Will abort the dialysis plan. Continue per consultants. Continue to monitor renal parameters. Medication list reviewed. October 25: Clinically improving. Serum creatinine lower. Urine output increased. No dialysis planned at this time. Continue per consultants. October 24: Patient's respiratory status somewhat improved. Serum creatinine down to 3.9. Urinary output somewhat increased. Will hold placement of dialysis catheter at this time. Blood pressure medication adjusted. Continue to monitor renal parameters. Per orders. October 23: Patient remains on BiPAP. More Kayexalate ordered. Will consider hemodialysis to correct fluid overload and hyperkalemia and acidosis. Will discuss with PMD. Meanwhile IV Synthroid started. Discussed with RN Timothy Patient already transfused 1 unit for severe anemia previously Will initiate Epogen 10,000 units subcutaneously 1 dose of IV iron Venofer 200 g IV Kayexalate for hyperkalemia as needed 2D echocardiogram ordered, ejection fraction is reported normal Kidney ultrasound ordered: Kidneys: Right kidney measures 9.1 cm in length. No hydronephrosis or stone. Left kidney not visualized due to patient's body habitus. Avoid nephrotoxic's Monitor renal parameters Will hold insulin and hypoglycemic agents until hypoglycemia is reasonably resolved Subjective ROS Limited/Unobtainable: No Constitutional: Reports: malaise Objective Objective Last 24 Hour Vital Signs Date Time Temp Pulse Resp B/P (MAP) Pulse Ox O2 Delivery O2 Flow Rate FiO2 11/11/19 09:54 76 159/57 11/11/19 09:53 76 159/57 11/11/19 08:00 97.5 76 20 159/57 (91) 97 11/11/19 05:11 74 20 99 30 11/11/19 04:00 2.0 11/11/19 04:00 Nasal Cannula 2.0 Nasal Cannula 2.0 11/11/19 04:00 97.0 74 20 136/51 (79) 98 11/11/19 04:00 75 11/11/19 03:14 74 22 99 30 11/11/19 01:38 76 22 96 30 11/11/19 00:00 Nasal Cannula 2.0 Nasal Cannula 2.0 11/11/19 00:00 58 11/11/19 00:00 98.1 70 17 105/59 (74) 95 11/10/19 22:39 100 20 98 30 11/10/19 21:00 81 146/59 11/10/19 20:00 2.0 11/10/19 20:00 81 11/10/19 20:00 99.5 86 16 140/55 (83) 99 11/10/19 20:00 Nasal Cannula 2.0 Nasal Cannula 2.0 11/10/19 18:56 100 Nasal Cannula 2.0 28 11/10/19 17:36 78 146/59 11/10/19 16:00 Nasal Cannula 2.0 Nasal Cannula 2.0 11/10/19 16:00 98.9 89 18 146/59 (88) 99 11/10/19 16:00 2.0 11/10/19 16:00 87 11/10/19 12:00 Nasal Cannula 2.0 Nasal Cannula 2.0 11/10/19 12:00 2.0 11/10/19 12:00 98.2 83 18 149/54 (85) 100 11/10/19 11:41 72 11/10/19 11:00 Nasal Cannula 2.0 28 Intake and Output 11/10/19 11/11/19 19:00 07:00 Intake Total 430 ml Output Total 2050 ml 20 ml Balance -1620 ml -20 ml Free Water 150 ml Tube Feeding 280 ml Output Urine Total 50 ml 20 ml Hemodialysis UF 2000 ml # Bowel Movements 2 Current Medications Medications (Trade) Dose Ordered Sig/Cammy Route PRN Reason Start Time Stop Time Status Last Admin Dose Admin Acetaminophen (Tylenol) 650 mg Q6H PRN NG Pain 3-5 11/11/19 00:00 12/02/19 00:00 Amlodipine Besylate (Norvasc) 5 mg BID NG 11/11/19 09:00 11/25/19 08:59 11/11/19 09:54 Apixaban (Eliquis) 2.5 mg BID NG 11/11/19 09:00 02/08/20 17:59 11/11/19 09:53 Atorvastatin Calcium (Lipitor) 10 mg BEDTIME NG 11/11/19 21:00 01/21/20 20:59 Chlorhexidine Gluconate (Yi-Hex 2%) 1 applic DAILY@2000 TOPIC 11/11/19 20:00 01/31/20 19:59 Dextrose (Dextrose 50%) 25 ml Q30M PRN IV Hypoglycemia 11/10/19 23:45 01/20/20 21:44 Dextrose (Dextrose 50%) 50 ml Q30M PRN IV Hypoglycemia 11/10/19 23:45 01/20/20 21:44 Docusate Sodium (Colace) 100 mg THREE TIMES A DAY NG 11/11/19 09:00 12/02/19 17:59 11/11/19 09:53 Epoetin William (Epoetin William(ESRD on dialysis)) 10,000 unit SUBQ 11/12/19 21:00 02/01/20 20:59 Haloperidol (Haldol) 5 mg Q12H PRN NG Agitation 11/11/19 00:00 12/26/19 00:00 Haloperidol Lactate (Haldol) 5 mg Q6H PRN IM Agitation 11/11/19 00:00 12/10/19 00:00 Hydralazine HCl (Apresoline) 10 mg Q4H PRN IV For High Blood Pressure 11/11/19 00:00 01/24/20 00:00 Insulin Aspart (NovoLOG) Q6HR SUBQ 11/11/19 00:00 01/31/20 06:29 Lactulose (Cephulac) 10 gm BID NG 11/11/19 09:00 12/01/19 08:59 Lansoprazole (Prevacid) 30 mg DAILY GT 11/11/19 09:00 12/11/19 08:59 Levothyroxine Sodium (Synthroid) 75 mcg DAILY@0630 NG 11/11/19 06:30 12/04/19 06:29 11/11/19 05:50 Metoprolol Tartrate (Lopressor) 25 mg Q12HR NG 11/11/19 09:00 02/08/20 20:59 11/11/19 09:53 Polyethylene Glycol (Miralax) 17 gm BEDTIME NG 11/11/19 21:00 12/01/19 20:59 Sennosides (Senokot) 8.6 mg HSPRN PRN NG Constipation 11/11/19 00:00 12/02/19 00:00 Sevelamer Carbonate (Renvela) 1,600 mg THREE TIMES A DAY NG 11/11/19 09:00 01/21/20 17:59 11/11/19 09:54 Laboratory Tests 11/10/19 12:41: POC Whole Blood Glucose 131H 11/10/19 17:34: POC Whole Blood Glucose [Pending] 11/11/19 05:44: White Blood Count 8.2, Red Blood Count 2.61L, Hemoglobin 8.0L, Hematocrit 27.0L , Mean Corpuscular Volume 103H, Mean Corpuscular Hemoglobin 30.4, Mean Corpuscular Hemoglobin Concent 29.5L, Red Cell Distribution Width 16.9H, Platelet Count 146L, Mean Platelet Volume 7.6, Neutrophils (%) (Auto) 82.8H, Lymphocytes (%) (Auto) 10.9L, Monocytes (%) (Auto) 4.2, Eosinophils (%) (Auto) 1.5, Basophils (%) (Auto) 0.6 Height (Feet): 5 Height (Inches): 4.00 Weight (Pounds): 200 Cardiovascular: normal rate Respiratory/Chest: decreased breath sounds Abdomen: soft Objective No change Naveed Vanegas MD Nov 11, 2019 10:36
--- NOTE | 2019-11-11 10:37 | Pulmonology Progress Note ---
Reema Hanna BUTTERMAKER CONTINUOUS CHURN 11/11/19 1037: Subjective ROS Limited/Unobtainable: No Allergies: Coded Allergies: PENICILLINS (Verified Allergy, Unknown, 10/25/19) tolerated Ceftriaxone All Systems: reviewed and negative except above Subjective transferred to tele now from SDU s/p perm HD catheter placement 11/07 s/p PEG 11/08 awake, alert, afebrile on 2l O2 via NC BiPAP at HS no signs of resp distress episode fo A fib with RVR, started on metoprolol per cardio, rate controlled currently ( hx of A fib) Objective Last 24 Hour Vital Signs Date Time Temp Pulse Resp B/P (MAP) Pulse Ox O2 Delivery O2 Flow Rate FiO2 11/11/19 09:54 76 159/57 11/11/19 09:53 76 159/57 11/11/19 08:00 97.5 76 20 159/57 (91) 97 11/11/19 05:11 74 20 99 30 11/11/19 04:00 2.0 11/11/19 04:00 Nasal Cannula 2.0 Nasal Cannula 2.0 11/11/19 04:00 97.0 74 20 136/51 (79) 98 11/11/19 04:00 75 11/11/19 03:14 74 22 99 30 11/11/19 01:38 76 22 96 30 11/11/19 00:00 Nasal Cannula 2.0 Nasal Cannula 2.0 11/11/19 00:00 58 11/11/19 00:00 98.1 70 17 105/59 (74) 95 11/10/19 22:39 100 20 98 30 11/10/19 21:00 81 146/59 11/10/19 20:00 2.0 11/10/19 20:00 81 11/10/19 20:00 99.5 86 16 140/55 (83) 99 11/10/19 20:00 Nasal Cannula 2.0 Nasal Cannula 2.0 11/10/19 18:56 100 Nasal Cannula 2.0 28 11/10/19 17:36 78 146/59 11/10/19 16:00 Nasal Cannula 2.0 Nasal Cannula 2.0 11/10/19 16:00 98.9 89 18 146/59 (88) 99 11/10/19 16:00 2.0 11/10/19 16:00 87 11/10/19 12:00 Nasal Cannula 2.0 Nasal Cannula 2.0 11/10/19 12:00 2.0 11/10/19 12:00 98.2 83 18 149/54 (85) 100 11/10/19 11:41 72 11/10/19 11:00 Nasal Cannula 2.0 28 Intake and Output 11/10/19 11/11/19 19:00 07:00 Intake Total 430 ml Output Total 2050 ml 20 ml Balance -1620 ml -20 ml Free Water 150 ml Tube Feeding 280 ml Output Urine Total 50 ml 20 ml Hemodialysis UF 2000 ml # Bowel Movements 2 Objective General Appearance: no apparent distress, Luxembourger speaking awake, more alert and responsive male, Lines, tubes and drains: R chest tunneled HD catheter , R femoral temporal HD catheter HEENT: normocephalic, atraumatic, anicteric, mucous membranes moist, O2 2 L via NC, NGT Respiratory/Chest: few scattered crackles, no exp wheezing, Cardiovascular/Chest: normal rate, SR with 1 st degree AV block Abdomen: normal bowel sounds, non tender, soft Extremities: partially amputated BL foot/metatarsal Skin Exam: warm/dry Neurologic: abnormal gait, awake, more responsive responsive, Musculoskeletal: atrophy BLE Laboratory Tests 11/10/19 12:41: POC Whole Blood Glucose 131H 11/10/19 17:34: POC Whole Blood Glucose [Pending] 11/11/19 05:44: White Blood Count 8.2, Red Blood Count 2.61L, Hemoglobin 8.0L, Hematocrit 27.0L , Mean Corpuscular Volume 103H, Mean Corpuscular Hemoglobin 30.4, Mean Corpuscular Hemoglobin Concent 29.5L, Red Cell Distribution Width 16.9H, Platelet Count 146L, Mean Platelet Volume 7.6, Neutrophils (%) (Auto) 82.8H, Lymphocytes (%) (Auto) 10.9L, Monocytes (%) (Auto) 4.2, Eosinophils (%) (Auto) 1.5, Basophils (%) (Auto) 0.6 Current Medications Medications (Trade) Dose Ordered Sig/Cammy Route PRN Reason Start Time Stop Time Status Last Admin Dose Admin Acetaminophen (Tylenol) 650 mg Q6H PRN NG Pain 3-5 11/11/19 00:00 12/02/19 00:00 Amlodipine Besylate (Norvasc) 5 mg BID NG 11/11/19 09:00 11/25/19 08:59 11/11/19 09:54 Apixaban (Eliquis) 2.5 mg BID NG 11/11/19 09:00 02/08/20 17:59 11/11/19 09:53 Atorvastatin Calcium (Lipitor) 10 mg BEDTIME NG 11/11/19 21:00 01/21/20 20:59 Chlorhexidine Gluconate (Yi-Hex 2%) 1 applic DAILY@2000 TOPIC 11/11/19 20:00 01/31/20 19:59 Dextrose (Dextrose 50%) 25 ml Q30M PRN IV Hypoglycemia 11/10/19 23:45 01/20/20 21:44 Dextrose (Dextrose 50%) 50 ml Q30M PRN IV Hypoglycemia 11/10/19 23:45 01/20/20 21:44 Docusate Sodium (Colace) 100 mg THREE TIMES A DAY NG 11/11/19 09:00 12/02/19 17:59 11/11/19 09:53 Epoetin William (Epoetin William(ESRD on dialysis)) 10,000 unit FRI-FRI-FRI SUBQ 11/12/19 21:00 02/01/20 20:59 Haloperidol (Haldol) 5 mg Q12H PRN NG Agitation 11/11/19 00:00 12/26/19 00:00 Haloperidol Lactate (Haldol) 5 mg Q6H PRN IM Agitation 11/11/19 00:00 12/10/19 00:00 Hydralazine HCl (Apresoline) 10 mg Q4H PRN IV For High Blood Pressure 11/11/19 00:00 01/24/20 00:00 Insulin Aspart (NovoLOG) Q6HR SUBQ 11/11/19 00:00 01/31/20 06:29 Lactulose (Cephulac) 10 gm BID NG 11/11/19 09:00 12/01/19 08:59 Lansoprazole (Prevacid) 30 mg DAILY GT 11/11/19 09:00 12/11/19 08:59 Levothyroxine Sodium (Synthroid) 75 mcg DAILY@0630 NG 11/11/19 06:30 12/04/19 06:29 11/11/19 05:50 Metoprolol Tartrate (Lopressor) 25 mg Q12HR NG 11/11/19 09:00 02/08/20 20:59 11/11/19 09:53 Polyethylene Glycol (Miralax) 17 gm BEDTIME NG 11/11/19 21:00 12/01/19 20:59 Sennosides (Senokot) 8.6 mg HSPRN PRN NG Constipation 11/11/19 00:00 12/02/19 00:00 Sevelamer Carbonate (Renvela) 1,600 mg THREE TIMES A DAY NG 11/11/19 09:00 01/21/20 17:59 11/11/19 09:54 Assessment/Plan Assessment/Plan ASSESSMENT Acute hypoxemic hypercapnic respiratory failure requiring BiPAP Acute metabolic encephalopathy likely due to hypoglycemia Diabetes mellitus with initial hypoglycemia Probably pneumonia Aspiration risk Dysphagia Acute kidney injury on chronic kidney disease, requiring start of HD 10/30 Severe anemia requiring blood transfusion Metabolic acidosis Electrolyte imbalance :hyponatremia, hyperkalemia HTN with HTN urgency Dysphagia Hematuria 2 to pt pulled off his Lyles catheter Possibly DAYANA PLAN OF CARE tele BiPAP at HS and prn currently on O2 2 L via NC titrate O2, pulm toilet patient likely has DAYANA. recommend sleep study as OP CXR 11/02 -> Stable slightly increased bilateral pleural effusions. Otherwise little change manager 3 days 10/21 and 10/24 rapid COVID NGT, abx as per ID recs -> Ceftriaxone , completed 10/30 ; s/p Vanco , completed Rx for PNA 7 days, remains afebrile no leucocytosis BCX 10/21 NGTD UCX NGT SCX if able Venous Duplex BLE 10/25 -> NGT CT head revealed bilateral mastoid disease; a new finding ID recommended ENT eval- pending- per primary team on HD- started 10/30 renal US ->Mildly atrophic kidneys. No hydronephrosis or nephrolithiasis. monitor volumes, renal parameters, lytes, correct as needed fup with nephro recs s/p placement of permanent HD catheter R chest 11/07 s/p removal of temporary HD catheter by surgeon ECHO with pEF 55-60% rate control with BB, now added, HR stable on chronic a/c , was on hold for PEG, resume Eliquis swallow eval with aspiration risk diet texture as per ST recs with strict asp precautions and assistance with meals now NGT repeat BSSE 11/04 -> failed, recommended nonoral feeding started on NGT feeding strict aspiration precautions s/p PEG 11/08 asp precautions, GT site care, monitor tolerance of TF AMS 10/[address] head negative, off sedatives ammonia WNL NGT inserted for meds as per nephro recs ( prior to G tube) NEED NEURO EVAL-per primary AMS improved to baseline HgA1c -6.1 hold oral anti-glycemic SSI prn sensitive initial AMS was most likely due to episode of hypoglycemia CT head NGT for acute ICP -done x 2 BP management with CCB BB and Hydralazine prn for BP spikes monitor HH with goal to keep Hgb above 7 stool OB anemia w/up noted , heme on board s/p 1 dose of Venofer on EPO hematuria resolved, Hgb at baseline GI prophayxlis supportive care ok for transfer to tele WILL NEED TRILOGY VENT TO BE ARRANGED ON DISCHARGE ( pt needs BIPAP at HS and prn ) case management aware, work in progress case discussed and evaluated by supervising physician Jonathon Pabon MD 11/11/19 1228: Subjective Allergies: Coded Allergies: PENICILLINS (Verified Allergy, Unknown, 10/25/19) tolerated Ceftriaxone Assessment/Plan Assessment/Plan Patient seen and examined with BUTTERMAKER CONTINUOUS CHURN. Agree with above A&P as it reflects our joint deliberations. Reema Hanna [employer]TERMAKER [employer]INUOUS CHURN Nov 11, 2019 10:37 Jonathon Pabon MD Nov 11, 2019 12:28
--- NOTE | 2019-11-11 10:55 | General Progress Note ---
Assessment/Plan Problem List: (1) Hypertension ICD Codes: I10 - Essential (primary) hypertension SNOMED: 98090240 (2) Diabetes mellitus ICD Codes: E11.9 - Type 2 diabetes mellitus without complications SNOMED: 50058746 (3) Anemia ICD Codes: D64.9 - Anemia, unspecified SNOMED: 373990765 (4) Cholelithiasis ICD Codes: K80.20 - Calculus of gallbladder without cholecystitis without obstruction SNOMED: 273752780 (5) CHF (congestive heart failure) ICD Codes: I50.9 - Heart failure, unspecified SNOMED: 09703403 Assessment/Plan: HD per nephrology s/p PEG GTF monitor for residuals Subjective ROS Limited/Unobtainable: No Allergies: Coded Allergies: PENICILLINS (Verified Allergy, Unknown, 10/25/19) tolerated Ceftriaxone Objective Last 24 Hour Vital Signs Date Time Temp Pulse Resp B/P (MAP) Pulse Ox O2 Delivery O2 Flow Rate FiO2 11/11/19 09:54 76 159/57 11/11/19 09:53 76 159/57 11/11/19 08:00 97.5 76 20 159/57 (91) 97 11/11/19 05:11 74 20 99 30 11/11/19 04:00 2.0 11/11/19 04:00 Nasal Cannula 2.0 Nasal Cannula 2.0 11/11/19 04:00 97.0 74 20 136/51 (79) 98 11/11/19 04:00 75 11/11/19 03:14 74 22 99 30 11/11/19 01:38 76 22 96 30 11/11/19 00:00 Nasal Cannula 2.0 Nasal Cannula 2.0 11/11/19 00:00 58 11/11/19 00:00 98.1 70 17 105/59 (74) 95 11/10/19 22:39 100 20 98 30 11/10/19 21:00 81 146/59 11/10/19 20:00 2.0 11/10/19 20:00 81 11/10/19 20:00 99.5 86 16 140/55 (83) 99 11/10/19 20:00 Nasal Cannula 2.0 Nasal Cannula 2.0 11/10/19 18:56 100 Nasal Cannula 2.0 28 11/10/19 17:36 78 146/59 11/10/19 16:00 Nasal Cannula 2.0 Nasal Cannula 2.0 11/10/19 16:00 98.9 89 18 146/59 (88) 99 11/10/19 16:00 2.0 11/10/19 16:00 87 11/10/19 12:00 Nasal Cannula 2.0 Nasal Cannula 2.0 11/10/19 12:00 2.0 11/10/19 12:00 98.2 83 18 149/54 (85) 100 11/10/19 11:41 72 11/10/19 11:00 Nasal Cannula 2.0 28 Intake and Output 11/10/19 11/11/19 19:00 07:00 Intake Total 430 ml Output Total 2050 ml 20 ml Balance -1620 ml -20 ml Free Water 150 ml Tube Feeding 280 ml Output Urine Total 50 ml 20 ml Hemodialysis UF 2000 ml # Bowel Movements 2 Laboratory Tests 11/10/19 12:41: POC Whole Blood Glucose 131H 11/10/19 17:34: POC Whole Blood Glucose [Pending] 11/11/19 05:44: White Blood Count 8.2, Red Blood Count 2.61L, Hemoglobin 8.0L, Hematocrit 27.0L , Mean Corpuscular Volume 103H, Mean Corpuscular Hemoglobin 30.4, Mean Corpuscular Hemoglobin Concent 29.5L, Red Cell Distribution Width 16.9H, Platelet Count 146L, Mean Platelet Volume 7.6, Neutrophils (%) (Auto) 82.8H, Lymphocytes (%) (Auto) 10.9L, Monocytes (%) (Auto) 4.2, Eosinophils (%) (Auto) 1.5, Basophils (%) (Auto) 0.6 Height (Feet): 5 Height (Inches): 4.00 Weight (Pounds): 200 General Appearance: alert EENT: normal ENT inspection Neck: supple Cardiovascular: normal rate Respiratory/Chest: decreased breath sounds Abdomen: normal bowel sounds, non tender, soft Extremities: non-tender Lawrence Humphreys MD Nov 11, 2019 10:55
[2019-11-11 12:00] VITALS: BP 152/53
[2019-11-11] MEDS: Acetaminophen 650mg/20.3ml NG PRN (12:52)
[2019-11-11 16:00] VITALS: BP 146/51
[2019-11-11] MEDS ORDERED: AMLODIPINE BESYL5 MG ORAL (16:09)
[2019-11-11] MEDS ORDERED: ELIQUIS2.5 MG PO ×2 (16:09→16:10)
--- NOTE | 2019-11-11 16:10 | Surgery Progress Note ---
Surgery Progress Note Subjective Procedure Performed removal Right femoral temporary hemodialysis catheter Additional Comments leukocytosis improved labs noted exam stable comfortable no n/v/f/c Objective Last 24 Hour Vital Signs Date Time Temp Pulse Resp B/P (MAP) Pulse Ox O2 Delivery O2 Flow Rate FiO2 11/11/19 12:00 73 11/11/19 12:00 97.7 73 22 152/53 (86) 97 11/11/19 12:00 Nasal Cannula 3.0 11/11/19 12:00 3.0 11/11/19 09:54 76 159/57 11/11/19 09:53 76 159/57 11/11/19 08:00 3.0 11/11/19 08:00 77 11/11/19 08:00 Nasal Cannula 3.0 11/11/19 08:00 97.5 76 20 159/57 (91) 97 11/11/19 05:11 74 20 99 30 11/11/19 04:00 2.0 11/11/19 04:00 Nasal Cannula 2.0 Nasal Cannula 2.0 11/11/19 04:00 97.0 74 20 136/51 (79) 98 11/11/19 04:00 75 11/11/19 03:14 74 22 99 30 11/11/19 01:38 76 22 96 30 11/11/19 00:00 Nasal Cannula 2.0 Nasal Cannula 2.0 11/11/19 00:00 58 11/11/19 00:00 98.1 70 17 105/59 (74) 95 11/10/19 22:39 100 20 98 30 11/10/19 21:00 81 146/59 11/10/19 20:00 2.0 11/10/19 20:00 81 11/10/19 20:00 99.5 86 16 140/55 (83) 99 11/10/19 20:00 Nasal Cannula 2.0 Nasal Cannula 2.0 11/10/19 18:56 100 Nasal Cannula 2.0 28 11/10/19 17:36 78 146/59 I&O Intake and Output 11/10/19 11/11/19 19:00 07:00 Intake Total 430 ml Output Total 2050 ml 20 ml Balance -1620 ml -20 ml Free Water 150 ml Tube Feeding 280 ml Output Urine Total 50 ml 20 ml Hemodialysis UF 2000 ml # Bowel Movements 2 Dressing: other Wound: other Cardiovascular: RSR Respiratory: decreased breath sounds Abdomen: soft, non-tender, present bowel sounds Extremities: no tenderness, no cyanosis Laboratory Tests Test 11/10/19 17:34 11/11/19 05:44 POC Whole Blood Glucose Pending White Blood Count 8.2 K/UL (4.8-10.8) Red Blood Count 2.61 M/UL (4.70-6.10) L Hemoglobin 8.0 G/DL (14.2-18.0) L Hematocrit 27.0 % (42.0-52.0) L Mean Corpuscular Volume 103 FL (80-99) H Mean Corpuscular Hemoglobin 30.4 PG (27.0-31.0) Mean Corpuscular Hemoglobin Concent 29.5 G/DL (32.0-36.0) L Red Cell Distribution Width 16.9 % (11.6-14.8) H Platelet Count 146 K/UL (150-450) L Mean Platelet Volume 7.6 FL (6.5-10.1) Neutrophils (%) (Auto) 82.8 % (45.0-75.0) H Lymphocytes (%) (Auto) 10.9 % (20.0-45.0) L Monocytes (%) (Auto) 4.2 % (1.0-10.0) Eosinophils (%) (Auto) 1.5 % (0.0-3.0) Basophils (%) (Auto) 0.6 % (0.0-2.0) Plan Problems: (1) Hypercarbia (2) Pleural effusion (3) Chronic renal failure (4) Anemia (5) CHF (congestive heart failure) (6) Bacteremia (7) Cellulitis Assessment & Plan: penile swelling improved no active bleeding reyes okay will monitor (8) Hypoglycemia (9) Hyponatremia (10) ATN (acute tubular necrosis) (11) Metabolic acidosis Assessment & Plan: DYSPHAGIA RISK FACTORS INCLUDE: RESPIRATORY WELL MULTIPLE MEDICAL COMPLICATIONS, SHORTNESS OF BREATH, WORK OF BREATHING, DECREASED MENTATION, HX OF SUBOPTIMAL P.O. INTAKE, LETHARGY (DIFFICULTY SUSTAINING WAKEFULNESS) , CLINICAL HISTORY: AMS CURRENT CXR: Indication: Shortness of breath Technique: One view of the chest Comparison: 10/31/2019 Findings: Interim placement of nasogastric tube, tip projected at the level of the gastric body. This was also demonstrated on 11/01/2019 abdominal radiograph. Bilateral hazy opacity appears similar to or perhaps slightly increased from the prior study. Generalized mild interstitial prominence persists. Impression: Stable slightly increased bilateral pleural effusions Otherwise little global director air and climate change 3 days INITIAL IMPRESSION: PATIENT POSITIONED AT 90 DEGREES UPRIGHT IN BED AND PRESENTED WITH P.O. TRIALS OF ICE CHIPS, ONE AT A TIME. LINGUAL SIZE PRESENTS ENLARGED. PATIENT PERSISTENTLY MOUTH BREATHING. WHEN PRESENTED WITH ONE ICE CHIP HE MANIPULATED IT, ALLOWED IT TO MELT ON HIS TONGUE AND AFTER A MODERATE DELAY, HE SWALLOWED. RR CHANGES FROM 18 BREATHS PER MINUTE TO 25 BREATHS PER MINUTE ALONG WITH WORK OF BREATHING. WHEN ASKED TO SAY "AH" POST SWALLOW, PATIENTS VOCAL QUALITY WAS WET/GURGLY. HYOLARYNGEAL EXCURSION PRESENTED MODERATELY DECREASED. PATIENT ESSENTIALLY NON/VERBAL THIS AFTERNOON. HIGH ASPIRATION RISK. HIS RISK FOR CONSISTENT/STABLE/SUFFICIENT P.O. INTAKE TO SUPPORT NUTRITION/HYDRATION NEEDS. RECOMMENDATIONS: 1. CONTINUE NON/ORAL FEEDING MANAGEMENT PRIMARY SOURCE OF NUTRITION/ HYDRATION/MEDICATION 2. NPO STATUS 3. RE/ORDER SWALLOW EVALUATION IF/WHEN PATIENTS MEDICAL STATUS STABILIZES. DAILY ESTIMATED NEEDS: Needs based on Critical care, wound 71kg abw 22-28 kcals/kg 1161-5936 total kcals 1.25-2 g protein/kg 88-154 g total protein 25-30 mL/kg 5522-2965 total fluid mLs NUTRITION DIAGNOSIS: 1) Swallowing difficulty r/t respiratory status as evidenced by pt is vent dep via trach, GT dep. 2) Increased kcal/prot needs R/T wound healing as evidenced by pt admitted w/ multiple wounds including full thickness x3, refer to wound care eval for full report. CURRENT TF:NPO ENTERAL NUTRITION RECOMMENDATIONS: Glucerna 1.2 @60ml/hr x24 hrs + Prosource 1pkt QD to provide 1440ml, 1728 kcal, 86g +11g pro, 1159ml free H2o - As medically appropriate, initiate Glucerna 1.2 @ 30ml/hr x 6hrs - Advance 10ml q 4-6 hrs as tolerated to goal rate - Add Prosource 1pkt daily to better meet protein needs - HOB over 30 degrees/ water flush 120ml q 4hrs PARENTERAL NUTRITION RECOMMENDATIONS TPN Comment: Rec TPN to meet est needs with anticipated prolonged NPO status ADDITIONAL RECOMMENDATIONS: 1) Calibrated bedscale wt 2) Rec adding D5 IVF while pt is NPO to prevent hypoglycemia 3) Monitor lytes w/ TF, replete as needed 4) Wound healing: Vit C 250mg BID + SILVESTRE BID w/ TF orders 5) Monitor need for NISS w/ TF: h/o DM 6) Consider TPN w/ anticipated prolonged NPO status (12) Pneumonia (13) Cellulitis of foot Assessment & Plan: Pt presented on admission with Bilat TMA. Pressure injuries both heels. Stable dry necrosis note to Plantar /lateral L TMA. L Heel is boggy with non- Blanchable erythema. . R Heel Boggy with Non-Blanchable erythema.Haemosiderin with Xerosis skin noted to R and L lower ext. Darker skin tone without erythema , induration or fluctuance Medial L Malleolus. Darker skin tone without erythema or induration noted to sacrum. Tx.Plan: Apply Moisture Barrier Paste to Sacrum. Cover with Optifoam drsg.Change every 3 days and prn. Apply Betadine to eschar plantar/lateral L TMA . Cover with Optifoam drsg. Change every 3 days and prn. Apply Cavilon Skin Barrier to both heels and Malleoli. Cover each site with Optifoam drsg. Change every 7days and prn. Reposition at least every 2hours or as tolerated. Off load heels with pillow.Hx prior amputation prior MRI and plain films reviewed wounds stable and local care being provided no abscess noted cont with dressings elevate heels with pillow turn q2h off load pressure air mattress will follow with recs thank you (14) Osteomyelitis (15) History of hypertension (16) Renal failure (ARF), acute on chronic Assessment & Plan: HD line removed 11/09 (17) Acute encephalopathy (18) Diabetes mellitus (19) Hypertension (20) Cholelithiasis Assessment & Plan: US reviewed exam benign asymptomatic cholelithiasis alk phos mild elevated lfts improved trend labs no acute surgical intervention planned Liver: Liver measures 14.8 cm. No intrahepatic bile duct dilation. Gallbladder: Small stone in the gallbladder. No significant gallbladder wall thickening or pericholecystic fluid. Negative sonographic Bianchi's sign. Common bile duct: Normal common bile duct measuring 4.5 mm. No stones. No dilation. Pancreas: Pancreas is not visualized due to overlying bowel gas. Kidneys: Right kidney measures 9.1 cm in length. No hydronephrosis or stone. Left kidney not visualized due to patient's body habitus. Spleen: Spleen measures 9.4 cm. No focal lesion. Aorta: Visualized portions of the aorta are grossly unremarkable. The mid and distal portions are obscured by bowel gas. Inferior vena cava: Unremarkable. Free fluid: No ascites. Tubes, lines and devices: Reyes catheter in a decompressed bladder. IMPRESSION: Small stone in the gallbladder. No significant gallbladder wall thickening or pericholecystic fluid. Negative sonographic Bianchi's sign. Mariusz Diehl Nov 11, 2019 16:10
[2019-11-11 20:00] VITALS: BP 159/53
[2019-11-11] MEDS: Dyna-Hex 2% Top Sol 2oz TOPIC SCH (21:23)
[2019-11-11] MEDS: Miralax 17gm pkt NG SCH (21:23)
--- NOTE | 2019-11-11 22:15 | Discharge Summary ---
DATE OF ADMISSION: 10/22/2019 DATE OF DISCHARGE: 11/11/2019 NOTE: INCOMPLETE DICTATION This is one of several admissions to [facility] of this 79-year-old patient because of sepsis and renal failure. HISTORY OF PRESENT ILLNESS: Details of the event and circumstances that led the patient to be admitted to this medical unit can be found in H and P. In brief, the patient is a resident of an extended care facility where he has been in stable condition for the last several years. He is known to have several chronic medical syndromes, but has been stable on current medication. In particular, the patient has high blood pressure, diabetes mellitus, chronic renal failure, congestive heart failure, hyperlipidemia, and hypovitaminosis D. Two days prior to the present admission, he developed fever, tachycardia, and malaise. He refused to undergo hospital admission as he did on multiple occasions in the last 2 years and was treated in the facility. This time, he developed hypotension. He was transferred by paramedics to [facility] ER where he was found to be in septic shock and was admitted to the ICU. HOSPITAL COURSE: On admission, patient underwent clinical, biological, and imaging studies. Clinical assessment revealed the patient is hypotensive, tachycardic, and febrile placement. Multiple consultants were called to assist in management of this case that include strategy associate, escalator constructor, Infectious Disease specialist, and section 8 property manager. After several days of intensive care unit in which his metabolic acidosis has been corrected and was treated with broad spectrum IV antibiotic. He was transferred to [facility], but he continued to require daily hemodialysis. Therefore, a Laron catheter was inserted and he continued to have daily dialysis till he is discharged. The Laron had been switched to Permacath. Patient now is a member of a dialysis unit associated with [facility]. In addition, patient's mental status slowly recovered as in the first week, patient was in coma on Tea coma Scale of 9 to 11. At the time of his discharge, he is awake, alert, responsive, and able to answer simple questions. He is now on Epogen 92763 units Friday, Friday, and Friday, atorvastatin 10 mg daily. . Ayush Chang M.D. DR: YAMILETH JOB#: [id number] CC:
[2019-11-12] VITALS: BP 168/63
--- NOTE | 2019-11-12 00:10 | Psych Consult Progress Note ---
Psychiatry Progress Note Psychiatry Progress Note Subjective confused agitations disoriented Medications Current Medications Medications (Trade) Dose Ordered Sig/Cammy Route PRN Reason Start Time Stop Time Status Last Admin Dose Admin Acetaminophen (Tylenol) 650 mg Q6H PRN NG Pain 3-5 11/11/19 00:00 12/02/19 00:00 11/11/19 12:52 Amlodipine Besylate (Norvasc) 5 mg BID NG 11/11/19 09:00 11/25/19 08:59 11/11/19 18:18 Apixaban (Eliquis) 2.5 mg BID NG 11/11/19 09:00 02/08/20 17:59 11/11/19 18:18 Atorvastatin Calcium (Lipitor) 10 mg BEDTIME NG 11/11/19 21:00 01/21/20 20:59 11/11/19 21:23 Chlorhexidine Gluconate (Yi-Hex 2%) 1 applic DAILY@1999 TOPIC 11/11/19 20:00 01/31/20 19:59 11/11/19 21:23 Dextrose (Dextrose 50%) 25 ml Q30M PRN IV Hypoglycemia 11/10/19 23:45 01/20/20 21:44 Dextrose (Dextrose 50%) 50 ml Q30M PRN IV Hypoglycemia 11/10/19 23:45 01/20/20 21:44 Docusate Sodium (Colace) 100 mg THREE TIMES A DAY NG 11/11/19 09:00 12/02/19 17:59 11/11/19 18:17 Epoetin William (Epoetin William(ESRD on dialysis)) 10,000 unit SUBQ 11/12/19 21:00 02/01/20 20:59 Haloperidol (Haldol) 5 mg Q12H PRN NG Agitation 11/11/19 00:00 12/26/19 00:00 Haloperidol Lactate (Haldol) 5 mg Q6H PRN IM Agitation 11/11/19 00:00 12/10/19 00:00 Hydralazine HCl (Apresoline) 10 mg Q4H PRN IV For High Blood Pressure 11/11/19 00:00 01/24/20 00:00 Insulin Aspart (NovoLOG) Q6HR SUBQ 11/11/19 00:00 01/31/20 06:29 11/11/19 18:43 Lactulose (Cephulac) 10 gm BID NG 11/11/19 09:00 12/01/19 08:59 11/11/19 18:17 Lansoprazole (Prevacid) 30 mg DAILY GT 11/11/19 09:00 12/11/19 08:59 11/11/19 09:00 Levothyroxine Sodium (Synthroid) 75 mcg DAILY@0630 NG 11/11/19 06:30 12/04/19 06:29 11/11/19 05:50 Metoprolol Tartrate (Lopressor) 25 mg Q12HR NG 11/11/19 09:00 02/08/20 20:59 11/11/19 21:23 Polyethylene Glycol (Miralax) 17 gm BEDTIME NG 11/11/19 21:00 12/01/19 20:59 11/11/19 21:23 Sennosides (Senokot) 8.6 mg HSPRN PRN NG Constipation 11/11/19 00:00 12/02/19 00:00 Sevelamer Carbonate (Renvela) 1,600 mg THREE TIMES A DAY NG 11/11/19 09:00 01/21/20 17:59 11/11/19 18:18 Neurological/Psychiatric: Denies: no symptoms, anxiety, depressed, emotional problems, headache, numbness, paresthesia, pre-existing deficit, seizure, tingling, tremors, weakness, other Allergies: Coded Allergies: PENICILLINS (Verified Allergy, Unknown, 10/25/19) tolerated Ceftriaxone Objective Data Height (Feet): 5 Height (Inches): 4.00 Weight (Pounds): 200 General Appearance: alert Appearance: no abnormalities noted Behavior Mannerisms: good eye contact Mental Status Exam - Affect: blunted Mental Status Exam - Mood: anxious, agitated Mental Status Exam - Thought P: tangential, confusion Mental Status Exam - Thought C: delusions (specify) Mental Status Exam - Suicidal: not present Additional Comments: awake, confused, and disoriented. Mood is agitated. Affect is flat. Thought process, there is a paucity of thought content. Thought content, no suicidal or homicidal ideation. Cognition is impaired. Insight and judgment impaired. Dada Finch MD Nov 12, 2019 00:10
--- NOTE | 2019-11-12 00:11 | Cardiology Progress Note ---
Assessment/Plan Assessment/Plan LATE NOTE ENTRY DATE OF ENCOUNTER: Nov 11, 2019 TIME OF NOTE: 18: 46 1. Sinus tachycardia, continue metoprolol. 2. Acute HFpEF with elevated BNP, 2D echocardiography shows normal LV systolic with LVEF of about 55% but e/o increased intracardiac filling pressure. 3. Multiple risk factors for coronary artery disease include diabetes mellitus and hypertension. 4. History of peripheral vascular disease, status post partial foot amputation. 5. Acute on chronic renal failure. 6. Anemia of chronic disease. Subjective Subjective Sinus rhythm at rate of 74. Objective Last 24 Hour Vital Signs Date Time Temp Pulse Resp B/P (MAP) Pulse Ox O2 Delivery O2 Flow Rate FiO2 11/11/19 21:23 74 159/53 11/11/19 20:00 97.7 74 19 159/53 (88) 100 11/11/19 19:54 100 Nasal Cannula 2.0 28 11/11/19 18:18 70 148/57 11/11/19 16:00 Nasal Cannula 3.0 11/11/19 16:00 2.0 11/11/19 16:00 97.7 63 20 146/51 (82) 100 11/11/19 16:00 72 11/11/19 12:00 73 11/11/19 12:00 97.7 73 22 152/53 (86) 97 11/11/19 12:00 Nasal Cannula 3.0 11/11/19 12:00 3.0 11/11/19 09:54 76 159/57 11/11/19 09:53 76 159/57 11/11/19 08:00 3.0 11/11/19 08:00 77 11/11/19 08:00 Nasal Cannula 3.0 11/11/19 08:00 97.5 76 20 159/57 (91) 97 11/11/19 05:11 74 20 99 30 11/11/19 04:00 2.0 11/11/19 04:00 Nasal Cannula 2.0 Nasal Cannula 2.0 11/11/19 04:00 97.0 74 20 136/51 (79) 98 11/11/19 04:00 75 11/11/19 03:14 74 22 99 30 11/11/19 01:38 76 22 96 30 Intake and Output 11/11/19 11/12/19 19:00 07:00 # Voids 2 # Bowel Movements 1 2D Echo: LVEF 55%, Pseudo-normal LV physio grade II LV Diastolic fxn, RVSP 22 , [place] Laboratory Tests Test 11/11/19 05:44 White Blood Count 8.2 K/UL (4.8-10.8) Red Blood Count 2.61 M/UL (4.70-6.10) L Hemoglobin 8.0 G/DL (14.2-18.0) L Hematocrit 27.0 % (42.0-52.0) L Mean Corpuscular Volume 103 FL (80-99) H Mean Corpuscular Hemoglobin 30.4 PG (27.0-31.0) Mean Corpuscular Hemoglobin Concent 29.5 G/DL (32.0-36.0) L Red Cell Distribution Width 16.9 % (11.6-14.8) H Platelet Count 146 K/UL (150-450) L Mean Platelet Volume 7.6 FL (6.5-10.1) Neutrophils (%) (Auto) 82.8 % (45.0-75.0) H Lymphocytes (%) (Auto) 10.9 % (20.0-45.0) L Monocytes (%) (Auto) 4.2 % (1.0-10.0) Eosinophils (%) (Auto) 1.5 % (0.0-3.0) Basophils (%) (Auto) 0.6 % (0.0-2.0) Objective HEENT: Atraumatic and normocephalic. Anicteric. Pupils are equal, round, and reactive to light and accommodation. Extraocular muscles intact. NECK: JVP less than 5 cm. No carotid bruit. Carotid upstroke is 2+ bilaterally. CARDIOVASCULAR: Normal S1, S2. Regular rate and rhythm. No murmurs, gallops, or rubs. LUNGS: Bilateral rhonchi. ABDOMEN: Soft, nontender, and nondistended. No hepatosplenomegaly. Positive bowel sounds. EXTREMITIES: Bilateral partial foot amputations. Chris Hanley MD Nov 12, 2019 00:11
[2019-11-12] MEDS: NovoLOG Insulin Flexpen SUBQ SCH ×4 (00:27→18:00)
[2019-11-12 04:00] VITALS: BP 167/60
[2019-11-12] MEDS: Acetaminophen 650mg/20.3ml NG PRN (04:01)
--- NOTE | 2019-11-12 07:16 | Infectious Diseases Prog Note ---
Assessment/Plan 79yo M from SNF who p/w hypoglycemia and resp failure: Acute hypoxic respiratory failure, on BiPAP > 2L NC> RA > 2L NC Rapid COVID neg x2 (10/21, 10/24) Pneumonia on CXR Volume overload 10/30 CXR: Slightly improved 10/25 CXR: Bilateral alveolar densities are unchanged 10/24 Sp cx normal resp demario (prelim) 10/23 CXR: 1. Small layering right pleural effusion, not significantly changed. The previously noted small left pleural effusion is not as evident.Prominent lung markings and haziness, right greater left, which may be related to pulmonary vascular congestion versus pneumonitis. This is not significantly changed.. Subsegmental atelectasis versus infiltrate in the medial left lung base, also not significantly changed. 10/21 CXR: 1. Small bilateral pleural effusions. Bibasilar atelectasis versus pneumonia. 2. Prominent lung markings and hazy opacities in right greater than left lungs may represent artifact versus pulmonary vasculature congestion and edema versus infectious/inflammatory process. 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 10/31 No clear clinical correlate to this imaging finding, s/p 7 days of CTX which is good abx for mastoiditis Hypercapnia, on BiPAP, improving Afebrile No leukocytosis Anemia to 6.8, improved UA neg, UCx neg R/o bacteremia 10/21 BCx NTD ALEXIS on CKD, worsening --> now on HD HBsAg neg Plan: Cont to monitor off abx, s/p 7d of abx for pna, but this also covered for possible mastoiditis ENT to evaluate ears/TMs for signs of underlying mastoiditis, as seen on CT head ; would appreciate the evaluation as pt unable to tell us if he has ear pain/DE LEON , etc; if unable to obtain in house, OK for pt to have outpt ENT f/u for evaluation given that pt has remained AF wo s/sx of ear infection here, and there is no pain on ear exam here (though unable to fully evaluate the inner ears) 11/07 Clindamycin x1 for catheter placement 10/31 SP CTX #7 10/26 SP vancomycin IV #5 Trend resp status Monitor CBC, CMP Thank you for this consult. [facility] will continue to follow. Subjective Allergies: Coded Allergies: PENICILLINS (Verified Allergy, Unknown, 10/25/19) tolerated Ceftriaxone AF NAD on NC More interactive Speaking [place] WBC 10.4 Objective Last 24 Hour Vital Signs Date Time Temp Pulse Resp B/P (MAP) Pulse Ox O2 Delivery O2 Flow Rate FiO2 11/12/19 04:00 66 11/12/19 04:00 97.1 78 21 167/60 (95) 98 11/12/19 00:00 73 11/12/19 00:00 96.8 75 23 168/63 (98) 98 11/12/19 00:00 2.0 11/11/19 21:23 74 159/53 11/11/19 21:00 Nasal Cannula 3.0 11/11/19 20:00 97.7 74 19 159/53 (88) 100 11/11/19 20:00 2.0 11/11/19 20:00 75 11/11/19 19:54 100 Nasal Cannula 2.0 28 11/11/19 18:18 70 148/57 11/11/19 16:00 Nasal Cannula 3.0 11/11/19 16:00 2.0 11/11/19 16:00 97.7 63 20 146/51 (82) 100 11/11/19 16:00 72 11/11/19 12:00 73 11/11/19 12:00 97.7 73 22 152/53 (86) 97 11/11/19 12:00 Nasal Cannula 3.0 11/11/19 12:00 3.0 11/11/19 09:54 76 159/57 11/11/19 09:53 76 159/57 11/11/19 08:00 3.0 11/11/19 08:00 77 11/11/19 08:00 Nasal Cannula 3.0 11/11/19 08:00 97.5 76 20 159/57 (91) 97 Height (Feet): 5 Height (Inches): 4.00 Weight (Pounds): 195 Gen: Older man, NAD in bed CV: RRR Pulm: CTAB anteriorly on NC Abd: Soft, NTND Neuro: Eyes open to voice, speaking in [place]ovan Laboratory Tests Test 11/12/19 05:55 White Blood Count Pending Red Blood Count Pending Hemoglobin Pending Hematocrit Pending Mean Corpuscular Volume Pending Mean Corpuscular Hemoglobin Pending Mean Corpuscular Hemoglobin Concent Pending Red Cell Distribution Width Pending Platelet Count Pending Mean Platelet Volume Pending Neutrophils (%) (Auto) Pending Lymphocytes (%) (Auto) Pending Monocytes (%) (Auto) Pending Eosinophils (%) (Auto) Pending Basophils (%) (Auto) Pending Sodium Level Pending Potassium Level Pending Chloride Level Pending Carbon Dioxide Level Pending Blood Urea Nitrogen Pending Creatinine Pending Estimat Glomerular Filtration Rate Pending Glucose Level Pending Calcium Level Pending Phosphorus Level Pending Total Bilirubin Pending Aspartate Amino Transf (AST/SGOT) Pending Alanine Aminotransferase (ALT/SGPT) Pending Alkaline Phosphatase Pending Total Protein Pending Albumin Pending Globulin Pending Current Medications Medications (Trade) Dose Ordered Sig/Cammy Route PRN Reason Start Time Stop Time Status Last Admin Dose Admin Acetaminophen (Tylenol) 650 mg Q6H PRN NG Pain 3-5 11/11/19 00:00 12/02/19 00:00 11/12/19 04:01 Amlodipine Besylate (Norvasc) 5 mg BID NG 11/11/19 09:00 11/25/19 08:59 11/11/19 18:18 Apixaban (Eliquis) 2.5 mg BID NG 11/11/19 09:00 02/08/20 17:59 11/11/19 18:18 Atorvastatin Calcium (Lipitor) 10 mg BEDTIME NG 11/11/19 21:00 01/21/20 20:59 11/11/19 21:23 Chlorhexidine Gluconate (Yi-Hex 2%) 1 applic DAILY@2000 TOPIC 11/11/19 20:00 01/31/20 19:59 11/11/19 21:23 Dextrose (Dextrose 50%) 25 ml Q30M PRN IV Hypoglycemia 11/10/19 23:45 01/20/20 21:44 Dextrose (Dextrose 50%) 50 ml Q30M PRN IV Hypoglycemia 11/10/19 23:45 01/20/20 21:44 Docusate Sodium (Colace) 100 mg THREE TIMES A DAY NG 11/11/19 09:00 12/02/19 17:59 11/11/19 18:17 Epoetin William (Epoetin William(ESRD on dialysis)) 10,000 unit FRI-FRI-FRI SUBQ 11/12/19 21:00 02/01/20 20:59 Haloperidol (Haldol) 5 mg Q12H PRN NG Agitation 11/11/19 00:00 12/26/19 00:00 Haloperidol Lactate (Haldol) 5 mg Q6H PRN IM Agitation 11/11/19 00:00 12/10/19 00:00 Hydralazine HCl (Apresoline) 10 mg Q4H PRN IV For High Blood Pressure 11/11/19 00:00 01/24/20 00:00 Insulin Aspart (NovoLOG) Q6HR SUBQ 11/11/19 00:00 01/31/20 06:29 11/12/19 06:46 Lactulose (Cephulac) 10 gm BID NG 11/11/19 09:00 12/01/19 08:59 11/11/19 18:17 Lansoprazole (Prevacid) 30 mg DAILY GT 11/11/19 09:00 12/11/19 08:59 11/11/19 09:00 Levothyroxine Sodium (Synthroid) 75 mcg DAILY@0630 NG 11/11/19 06:30 12/04/19 06:29 11/12/19 06:43 Metoprolol Tartrate (Lopressor) 25 mg Q12HR NG 11/11/19 09:00 02/08/20 20:59 11/11/19 21:23 Polyethylene Glycol (Miralax) 17 gm BEDTIME NG 11/11/19 21:00 12/01/19 20:59 11/11/19 21:23 Sennosides (Senokot) 8.6 mg HSPRN PRN NG Constipation 11/11/19 00:00 12/02/19 00:00 Sevelamer Carbonate (Renvela) 1,600 mg THREE TIMES A DAY NG 11/11/19 09:00 01/21/20 17:59 11/11/19 18:18 Mckenna Diallo M.D. Nov 12, 2019 07:16
[2019-11-12 07:23] LABS: HEMATOCRIT 29.3 % (42.0-52.0); HEMOGLOBIN 8.7 G/DL (14.2-18.0); MEAN CORPUSCULAR VOLUME 101 FL (80-99); PLATELET COUNT 211 K/UL (150-450); RED CELL DISTRIBUTION WIDTH 16.3 % (11.6-14.8); WHITE BLOOD COUNT 10.4 K/UL (4.8-10.8)
[2019-11-12 07:49] LABS: ALANINE AMINOTRANSFERASE 13 U/L (12-78); ALBUMIN 2.1 G/DL (3.4-5.0); ALBUMIN/GLOBULIN RATIO 0.5 (1.0-2.7); ALKALINE PHOSPHATASE 128 U/L (46-116); ANION GAP 1 mmol/L (5-15); ASPARTATE AMINO TRANSFERASE 23 U/L (15-37); BILIRUBIN,TOTAL 0.4 MG/DL (0.2-1.0); BLOOD UREA NITROGEN 51 mg/dL (7-18); CALCIUM 8.4 MG/DL (8.5-10.1); CARBON DIOXIDE 36 MMOL/L (21-32); CHLORIDE 101 MMOL/L (98-107); PHOSPHORUS 2.5 MG/DL (2.5-4.9); POTASSIUM 4.1 MMOL/L (3.5-5.1); SODIUM 137 MMOL/L (136-145)
[2019-11-12 08:00] VITALS: BP 187/58
[2019-11-12] MEDS: Lactulose 10gm/15ml UDC NG SCH ×3 (08:17→18:00)
[2019-11-12] MEDS: Docusate 100mg/10ml Liq NG SCH ×4 (08:17→18:00)
--- NOTE | 2019-11-12 08:34 | Hematology/Onc Progress Note ---
Assessment/Plan Assessment/Plan ASSESSMENT AND RECOMMENDATIONS: # Anemia of chronic disease due to underlying chronic medical issues, multifactorial --> Anemia w/u has been reviewed. --> no evidence of hemolysis is noted, peripheral smear has been reviewed --> hgb goal is >7, transfuse as needed --> currently remains stable, occult blood negative --> hgb 8.4->8.6->8.3->8->8.2->9.2-->9.2->8.9-->8.1-->8.7 --> some blood loss due to hematuria after inflated reyes pulled 8/6 am --> EPOGEN Started # Acute kidney injury r/o potential reversible component --> reviewed meds, those that are renally cleared removed --> as per renal recs, appreciated --> cr 3.5-->4.2 --> Hd started and dw renal # Hypertension, essential --> sbp goal is <140, consider anti-htn as needed --> currently started on hyralazine 25mg po q6h prn sbp >140 # CHF - hx of CHf --> diuresis with lasix as needed --> cardiology recs appreciated prior adm #. Leukocytosis with underlying infectionv stress reaction HISTORY --> per id and better --> for infection, ABX ctx/vanc-->off #. Bilateral lower extremity amputee, metatarsal several years ago #. Dysphagia s/p peg #. Hyperkalemia -- kayxelate as needed #. Agitation requires restraints #. Dvt ppx scds --> apixaban->off for catheter placement 11/07 The time the note was entered does not necessarily correspond to the time the patient was seen. GREATLY APPRECIATE CONSULTATION. Subjective Constitutional: Denies: no symptoms, chills, fever, malaise, weakness, other HEENT: Denies: no symptoms, eye pain, blurred vision, tearing, double vision, ear pain, ear discharge, nose pain, nose congestion, throat pain, throat swelling, mouth pain, mouth swelling, other Cardiovascular: Denies: no symptoms, chest pain, edema, irregular heart rate, lightheadedness, palpitations, syncope, other Respiratory: Denies: no symptoms, cough, shortness of breath, SOB with excertion, SOB at rest, sputum, wheezing, other Genitourinary: Denies: no symptoms, burning, discharge, frequency, flank pain, hematuria, incontinence, pain, urgency, other Neurologic/Psychiatric: Denies: no symptoms, anxiety, depressed, emotional problems, headache, numbness, paresthesia, pre-existing deficit, seizure, tingling, tremors, weakness, other Endocrine: Denies: no symptoms, excessive sweating, flushing, intolerance to cold, intolerance to heat, increased hunger, increased thirst, increased urine, unexplained weight gain, unexplained weight loss, other Hematologic/Lymphatic: Denies: no symptoms, anemia, easy bleeding, easy bruising, adenopathy, other Allergies: Coded Allergies: PENICILLINS (Verified Allergy, Unknown, 10/25/19) tolerated Ceftriaxone Subjective 10/[address] Chang, to do best to avoid haldol, continue restraints, jag rn, on nv, feeling better 10/25 still with some agitation overnight, meds reviewed, jag rn, haldol given in AM 10/26 is on 2l nc, also is on restraints, no night sweats, no bleeding 10/27 reyes catheter has been removed by patient, and resinserted, bed sheets, with bright red blood on exam 10/28 labs are noted, no bleeding, cr is worse, seen by renal, remains edematous 11/04 no major changes, hd as per renal, recs are noted, labs reviewed, pending neuro eval 11/05 is on bipap with restraints, no major changes, no bleeding, labs noted 11/06 remains agitated, is off eliquis for catheter placement for tuesday 11/07 on bipap, remains agitated, jag rn, procedure today 11/08 remains confused, no bleeding, meds noted, hgb 8.9, may need peg 11/09 on bipap, remains confused in restraints, jag rn, hgb lower 11/10 no new events, overnight bipap, now 2oxygen nc, cbc is pending, right chest pc 11/11 ngtube was pulled out, jag rn, on nv, holding dc, restraints needed Objective Objective Current Medications Medications (Trade) Dose Ordered Sig/Cammy Route PRN Reason Start Time Stop Time Status Last Admin Dose Admin Acetaminophen (Tylenol) 650 mg Q6H PRN NG Pain 3-5 11/11/19 00:00 12/02/19 00:00 11/12/19 04:01 Amlodipine Besylate (Norvasc) 5 mg BID NG 11/11/19 09:00 11/25/19 08:59 11/11/19 18:18 Apixaban (Eliquis) 2.5 mg BID NG 11/11/19 09:00 02/08/20 17:59 11/11/19 18:18 Atorvastatin Calcium (Lipitor) 10 mg BEDTIME NG 11/11/19 21:00 01/21/20 20:59 11/11/19 21:23 Chlorhexidine Gluconate (Yi-Hex 2%) 1 applic DAILY@1999 TOPIC 11/11/19 20:00 01/31/20 19:59 11/11/19 21:23 Dextrose (Dextrose 50%) 25 ml Q30M PRN IV Hypoglycemia 11/10/19 23:45 01/20/20 21:44 Dextrose (Dextrose 50%) 50 ml Q30M PRN IV Hypoglycemia 11/10/19 23:45 01/20/20 21:44 Docusate Sodium (Colace) 100 mg THREE TIMES A DAY NG 11/11/19 09:00 12/02/19 17:59 11/11/19 18:17 Epoetin William (Epoetin William(ESRD on dialysis)) 10,000 unit SUBQ 11/12/19 21:00 02/01/20 20:59 Haloperidol (Haldol) 5 mg Q12H PRN NG Agitation 11/11/19 00:00 12/26/19 00:00 Haloperidol Lactate (Haldol) 5 mg Q6H PRN IM Agitation 11/11/19 00:00 12/10/19 00:00 Hydralazine HCl (Apresoline) 10 mg Q4H PRN IV For High Blood Pressure 11/11/19 00:00 01/24/20 00:00 Insulin Aspart (NovoLOG) Q6HR SUBQ 11/11/19 00:00 01/31/20 06:29 11/12/19 06:46 Lactulose (Cephulac) 10 gm BID NG 11/11/19 09:00 12/01/19 08:59 11/11/19 18:17 Lansoprazole (Prevacid) 30 mg DAILY GT 11/11/19 09:00 12/11/19 08:59 11/11/19 09:00 Levothyroxine Sodium (Synthroid) 75 mcg DAILY@0630 NG 11/11/19 06:30 12/04/19 06:29 11/12/19 06:43 Metoprolol Tartrate (Lopressor) 25 mg Q12HR NG 11/11/19 09:00 02/08/20 20:59 11/11/19 21:23 Polyethylene Glycol (Miralax) 17 gm BEDTIME NG 11/11/19 21:00 12/01/19 20:59 11/11/19 21:23 Sennosides (Senokot) 8.6 mg HSPRN PRN NG Constipation 11/11/19 00:00 12/02/19 00:00 Sevelamer Carbonate (Renvela) 1,600 mg THREE TIMES A DAY NG 11/11/19 09:00 01/21/20 17:59 11/11/19 18:18 Last 24 Hour Vital Signs Date Time Temp Pulse Resp B/P (MAP) Pulse Ox O2 Delivery O2 Flow Rate FiO2 11/12/19 08:00 97.7 59 18 187/58 (101) 97 11/12/19 07:40 98 Nasal Cannula 2.0 28 11/12/19 04:00 2.0 11/12/19 04:00 66 11/12/19 04:00 97.1 78 21 167/60 (95) 98 11/12/19 00:00 73 11/12/19 00:00 96.8 75 23 168/63 (98) 98 11/12/19 00:00 2.0 11/11/19 21:23 74 159/53 11/11/19 21:00 Nasal Cannula 3.0 11/11/19 20:00 97.7 74 19 159/53 (88) 100 11/11/19 20:00 2.0 11/11/19 20:00 75 11/11/19 19:54 100 Nasal Cannula 2.0 28 11/11/19 18:18 70 148/57 11/11/19 16:00 Nasal Cannula 3.0 11/11/19 16:00 2.0 11/11/19 16:00 97.7 63 20 146/51 (82) 100 8/20/20 16:00 72 11/11/19 12:00 73 11/11/19 12:00 97.7 73 22 152/53 (86) 97 11/11/19 12:00 Nasal Cannula 3.0 11/11/19 12:00 3.0 11/11/19 09:54 76 159/57 11/11/19 09:53 76 159/57 11/11/19 08:00 3.0 11/11/19 08:00 77 11/11/19 08:00 Nasal Cannula 3.0 11/11/19 08:00 97.5 76 20 159/57 (91) 97 11/11/19 05:11 74 20 99 30 11/11/19 04:00 2.0 11/11/19 04:00 Nasal Cannula 2.0 Nasal Cannula 2.0 11/11/19 04:00 97.0 74 20 136/51 (79) 98 11/11/19 04:00 75 11/11/19 03:14 74 22 99 30 11/11/19 01:38 76 22 96 30 11/11/19 00:00 Nasal Cannula 2.0 Nasal Cannula 2.0 11/11/19 00:00 58 11/11/19 00:00 98.1 70 17 105/59 (74) 95 11/10/19 22:39 100 20 98 30 11/10/19 21:00 81 146/59 11/10/19 20:00 2.0 11/10/19 20:00 81 11/10/19 20:00 99.5 86 16 140/55 (83) 99 11/10/19 20:00 Nasal Cannula 2.0 Nasal Cannula 2.0 11/10/19 18:56 100 Nasal Cannula 2.0 28 11/10/19 17:36 78 146/59 11/10/19 16:00 Nasal Cannula 2.0 Nasal Cannula 2.0 11/10/19 16:00 98.9 89 18 146/59 (88) 99 11/10/19 16:00 2.0 11/10/19 16:00 87 11/10/19 12:00 Nasal Cannula 2.0 Nasal Cannula 2.0 11/10/19 12:00 2.0 11/10/19 12:00 98.2 83 18 149/54 (85) 100 11/10/19 11:41 72 11/10/19 11:00 Nasal Cannula 2.0 28 11/10/19 10:31 89 11/10/19 08:58 77 136/51 Intake and Output 11/11/19 11/12/19 19:00 07:00 Intake Total 40 ml 500 ml Balance 40 ml 500 ml Free Water 100 ml Tube Feeding 40 ml 400 ml # Voids 2 3 # Bowel Movements 1 3 Labs Test 11/09/19 12:01 11/09/19 17:10 11/09/19 18:10 11/10/19 03:25 POC Whole Blood Glucose 130 MG/DL (74-106) 128 MG/DL (74-106) White Blood Count 9.5 K/UL (4.8-10.8) 10.3 K/UL (4.8-10.8) Red Blood Count 2.76 M/UL (4.70-6.10) 2.71 M/UL (4.70-6.10) Hemoglobin 8.5 G/DL (14.2-18.0) 8.1 G/DL (14.2-18.0) Hematocrit 29.0 % (42.0-52.0) 27.7 % (42.0-52.0) Mean Corpuscular Volume 105 FL (80-99) 102 FL (80-99) Mean Corpuscular Hemoglobin 30.8 PG (27.0-31.0) 30.0 PG (27.0-31.0) Mean Corpuscular Hemoglobin Concent 29.3 G/DL (32.0-36.0) 29.3 G/DL (32.0-36.0) Red Cell Distribution Width 17.4 % (11.6-14.8) 16.9 % (11.6-14.8) Platelet Count 128 K/UL (150-450) 145 K/UL (150-450) Mean Platelet Volume 7.4 FL (6.5-10.1) 7.7 FL (6.5-10.1) Neutrophils (%) (Auto) 87.1 % (45.0-75.0) % (45.0-75.0) Lymphocytes (%) (Auto) 8.5 % (20.0-45.0) % (20.0-45.0) Monocytes (%) (Auto) 3.0 % (1.0-10.0) % (1.0-10.0) Eosinophils (%) (Auto) 0.9 % (0.0-3.0) % (0.0-3.0) Basophils (%) (Auto) 0.5 % (0.0-2.0) % (0.0-2.0) Differential Total Cells Counted 100 Neutrophils % (Manual) 92 % (45-75) Lymphocytes % (Manual) 4 % (20-45) Monocytes % (Manual) 4 % (1-10) Eosinophils % (Manual) 0 % (0-3) Basophils % (Manual) 0 % (0-2) Band Neutrophils 0 % (0-8) Platelet Estimate Decreased Platelet Morphology Normal Hypochromasia 1+ Anisocytosis 1+ Macrocytosis 1+ Sodium Level 140 MMOL/L (136-145) Potassium Level 4.5 MMOL/L (3.5-5.1) Chloride Level 104 MMOL/L (98-107) Carbon Dioxide Level 33 MMOL/L (21-32) Anion Gap 3 mmol/L (5-15) Blood Urea Nitrogen 62 mg/dL (7-18) Creatinine 3.7 MG/DL (0.55-1.30) Estimat Glomerular Filtration Rate 15.8 mL/min (>60) Glucose Level 153 MG/DL (74-106) Calcium Level 8.7 MG/DL (8.5-10.1) Phosphorus Level 2.9 MG/DL (2.5-4.9) Magnesium Level 2.5 MG/DL (1.8-2.4) Total Bilirubin 0.5 MG/DL (0.2-1.0) Aspartate Amino Transf (AST/SGOT) 20 U/L (15-37) Alanine Aminotransferase (ALT/SGPT) 16 U/L (12-78) Alkaline Phosphatase 87 U/L (46-116) C-Reactive Protein, Quantitative 8.9 mg/dL (0.00-0.90) Total Protein 5.5 G/DL (6.4-8.2) Albumin 1.9 G/DL (3.4-5.0) Globulin 3.6 g/dL Albumin/Globulin Ratio 0.5 (1.0-2.7) Test 11/10/19 05:51 8/19/20 08:56 11/10/19 12:41 11/10/19 17:34 POC Whole Blood Glucose 131 MG/DL (74-106) Test 11/11/19 05:44 11/12/19 05:55 White Blood Count 8.2 K/UL (4.8-10.8) 10.4 K/UL (4.8-10.8) Red Blood Count 2.61 M/UL (4.70-6.10) 2.90 M/UL (4.70-6.10) Hemoglobin 8.0 G/DL (14.2-18.0) 8.7 G/DL (14.2-18.0) Hematocrit 27.0 % (42.0-52.0) 29.3 % (42.0-52.0) Mean Corpuscular Volume 103 FL (80-99) 101 FL (80-99) Mean Corpuscular Hemoglobin 30.4 PG (27.0-31.0) 30.2 PG (27.0-31.0) Mean Corpuscular Hemoglobin Concent 29.5 G/DL (32.0-36.0) 29.8 G/DL (32.0-36.0) Red Cell Distribution Width 16.9 % (11.6-14.8) 16.3 % (11.6-14.8) Platelet Count 146 K/UL (150-450) 211 K/UL (150-450) Mean Platelet Volume 7.6 FL (6.5-10.1) 6.3 FL (6.5-10.1) Neutrophils (%) (Auto) 82.8 % (45.0-75.0) % (45.0-75.0) Lymphocytes (%) (Auto) 10.9 % (20.0-45.0) % (20.0-45.0) Monocytes (%) (Auto) 4.2 % (1.0-10.0) % (1.0-10.0) Eosinophils (%) (Auto) 1.5 % (0.0-3.0) % (0.0-3.0) Basophils (%) (Auto) 0.6 % (0.0-2.0) % (0.0-2.0) Sodium Level 137 MMOL/L (136-145) Potassium Level 4.1 MMOL/L (3.5-5.1) Chloride Level 101 MMOL/L (98-107) Carbon Dioxide Level 36 MMOL/L (21-32) Anion Gap 1 mmol/L (5-15) Blood Urea Nitrogen 51 mg/dL (7-18) Creatinine 3.0 MG/DL (0.55-1.30) Estimat Glomerular Filtration Rate 20.2 mL/min (>60) Glucose Level 191 MG/DL (74-106) Calcium Level 8.4 MG/DL (8.5-10.1) Phosphorus Level 2.5 MG/DL (2.5-4.9) Total Bilirubin 0.4 MG/DL (0.2-1.0) Aspartate Amino Transf (AST/SGOT) 23 U/L (15-37) Alanine Aminotransferase (ALT/SGPT) 13 U/L (12-78) Alkaline Phosphatase 128 U/L (46-116) Total Protein 6.1 G/DL (6.4-8.2) Albumin 2.1 G/DL (3.4-5.0) Globulin 4.0 g/dL Albumin/Globulin Ratio 0.5 (1.0-2.7) Height (Feet): 5 Height (Inches): 4.00 Weight (Pounds): 195 Objective GENERAL: Not in acute distress. PULMONARY: Decreased breath sounds. ++ bipap CHEST: ++permacath CARDIOVASCULAR: Regular rate. No S3 or S4. ABDOMEN: Soft, nontender, nondistended. EXTREMITIES: 1+ edema. No cyanosis, swelling, or edema. 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 Melvin Rizzo MD Nov 12, 2019 08:33
[2019-11-12] MEDS: Eliquis 2.5mg tablet NG SCH ×3 (08:36→18:00)
[2019-11-12] MEDS: Renvela 800mg Pkt NG SCH ×4 (08:37→18:00)
[2019-11-12] MEDS ORDERED: 1/2 NS 1000ml IV ONE (10:09)
--- NOTE | 2019-11-12 10:32 | Pulmonology Progress Note ---
Reema Hanna [facility] 11/12/19 1032: Subjective ROS Limited/Unobtainable: No Allergies: Coded Allergies: PENICILLINS (Verified Allergy, Unknown, 10/25/19) tolerated Ceftriaxone All Systems: reviewed and negative except above Subjective on tele s/p perm HD catheter placement 11/07 s/p PEG 11/08 awake, alert, afebrile on 2l O2 via NC BiPAP at HS no signs of resp distress prior episode fo A fib with RVR, started on metoprolol per cardio, rate controlled currently ( hx of A fib) pulled out G tube Objective Last 24 Hour Vital Signs Date Time Temp Pulse Resp B/P (MAP) Pulse Ox O2 Delivery O2 Flow Rate FiO2 11/12/19 09:00 183/75 11/12/19 08:00 97.7 59 18 187/58 (101) 97 11/12/19 07:40 98 Nasal Cannula 2.0 28 11/12/19 04:00 2.0 11/12/19 04:00 66 11/12/19 04:00 97.1 78 21 167/60 (95) 98 11/12/19 00:00 73 11/12/19 00:00 96.8 75 23 168/63 (98) 98 11/12/19 00:00 2.0 11/11/19 21:23 74 159/53 11/11/19 21:00 Nasal Cannula 3.0 11/11/19 20:00 97.7 74 19 159/53 (88) 100 11/11/19 20:00 2.0 11/11/19 20:00 75 11/11/19 19:54 100 Nasal Cannula 2.0 28 11/11/19 18:18 70 148/57 11/11/19 16:00 Nasal Cannula 3.0 11/11/19 16:00 2.0 11/11/19 16:00 97.7 63 20 146/51 (82) 100 11/11/19 16:00 72 11/11/19 12:00 73 11/11/19 12:00 97.7 73 22 152/53 (86) 97 11/11/19 12:00 Nasal Cannula 3.0 11/11/19 12:00 3.0 Intake and Output 11/11/19 11/12/19 19:00 07:00 Intake Total 40 ml 500 ml Balance 40 ml 500 ml Free Water 100 ml Tube Feeding 40 ml 400 ml # Voids 2 3 # Bowel Movements 1 3 Objective General Appearance: no apparent distress, Micronesian speaking awake, more alert and responsive male, Lines, tubes and drains: R chest tunneled HD catheter , R femoral temporal HD catheter HEENT: normocephalic, atraumatic, anicteric, mucous membranes moist, O2 2 L via NC, NGT Respiratory/Chest: few scattered crackles, no exp wheezing, Cardiovascular/Chest: normal rate, SR with 1 st degree AV block Abdomen: normal bowel sounds, non tender, soft Extremities: partially amputated BL foot/metatarsal Skin Exam: warm/dry Neurologic: abnormal gait, awake, more responsive responsive, Musculoskeletal: atrophy BLE Laboratory Tests 11/12/19 05:55: White Blood Count 10.4, Red Blood Count 2.90L, Hemoglobin 8.7L, Hematocrit 29.3L , Mean Corpuscular Volume 101H, Mean Corpuscular Hemoglobin 30.2, Mean Corpuscular Hemoglobin Concent 29.8L, Red Cell Distribution Width 16.3H, Platelet Count 211, Mean Platelet Volume 6.3L, Neutrophils (%) (Auto) , Lymphocytes (%) (Auto) , Monocytes (%) (Auto) , Eosinophils (%) (Auto) , Basophils (%) (Auto) , Neutrophils % (Manual) [Pending], Lymphocytes % (Manual) [Pending], Platelet Estimate [Pending], Platelet Morphology [Pending], Sodium Level 137, Potassium Level 4.1, Chloride Level 101, Carbon Dioxide Level 36H, Anion Gap 1L, Blood Urea Nitrogen 51H, Creatinine 3.0H, Estimat Glomerular Filtration Rate 20.2, Glucose Level 191H, Calcium Level 8.4L, Phosphorus Level 2.5, Total Bilirubin 0.4, Aspartate Amino Transf (AST/SGOT) 23, Alanine Aminotransferase (ALT/SGPT) 13, Alkaline Phosphatase 128H, Total Protein 6.1L, Albumin 2.1L, Globulin 4.0, Albumin/Globulin Ratio 0.5L Current Medications Medications (Trade) Dose Ordered Sig/Cammy Route PRN Reason Start Time Stop Time Status Last Admin Dose Admin Acetaminophen (Tylenol) 650 mg Q6H PRN NG Pain 3-5 11/11/19 00:00 12/02/19 00:00 11/12/19 04:01 Amlodipine Besylate (Norvasc) 5 mg BID NG 11/11/19 09:00 11/25/19 08:59 11/11/19 18:18 Apixaban (Eliquis) 2.5 mg BID NG 11/11/19 09:00 02/08/20 17:59 11/11/19 18:18 Atorvastatin Calcium (Lipitor) 10 mg BEDTIME NG 11/11/19 21:00 01/21/20 20:59 11/11/19 21:23 Chlorhexidine Gluconate (Yi-Hex 2%) 1 applic DAILY@1999 TOPIC 11/11/19 20:00 01/31/20 19:59 11/11/19 21:23 Dextrose (Dextrose 50%) 25 ml Q30M PRN IV Hypoglycemia 11/10/19 23:45 01/20/20 21:44 Dextrose (Dextrose 50%) 50 ml Q30M PRN IV Hypoglycemia 11/10/19 23:45 01/20/20 21:44 Docusate Sodium (Colace) 100 mg THREE TIMES A DAY NG 11/11/19 09:00 12/02/19 17:59 11/11/19 18:17 Epoetin William (Epoetin William(ESRD on dialysis)) 10,000 unit FRI-FRI-FRI SUBQ 11/12/19 21:00 02/01/20 20:59 Haloperidol (Haldol) 5 mg Q12H PRN NG Agitation 11/11/19 00:00 12/26/19 00:00 Haloperidol Lactate (Haldol) 5 mg Q6H PRN IM Agitation 11/11/19 00:00 12/10/19 00:00 Hydralazine HCl (Apresoline) 10 mg Q4H PRN IV For High Blood Pressure 11/11/19 00:00 01/24/20 00:00 11/12/19 09:00 Insulin Aspart (NovoLOG) Q6HR SUBQ 11/11/19 00:00 01/31/20 06:29 11/12/19 06:46 Lactulose (Cephulac) 10 gm BID NG 11/11/19 09:00 12/01/19 08:59 11/11/19 18:17 Lansoprazole (Prevacid) 30 mg DAILY GT 11/11/19 09:00 12/11/19 08:59 11/11/19 09:00 Levothyroxine Sodium (Synthroid) 75 mcg DAILY@0630 NG 11/11/19 06:30 12/04/19 06:29 11/12/19 06:43 Metoprolol Tartrate (Lopressor) 25 mg Q12HR NG 11/11/19 09:00 02/08/20 20:59 11/11/19 21:23 Polyethylene Glycol (Miralax) 17 gm BEDTIME NG 11/11/19 21:00 12/01/19 20:59 11/11/19 21:23 Sennosides (Senokot) 8.6 mg HSPRN PRN NG Constipation 11/11/19 00:00 12/02/19 00:00 Sevelamer Carbonate (Renvela) 1,600 mg THREE TIMES A DAY NG 11/11/19 09:00 01/21/20 17:59 11/11/19 18:18 Assessment/Plan Assessment/Plan ASSESSMENT Acute hypoxemic hypercapnic respiratory failure requiring BiPAP Acute metabolic encephalopathy likely due to hypoglycemia Diabetes mellitus with initial hypoglycemia Probably pneumonia Aspiration risk Dysphagia , s/p PEG Acute kidney injury on chronic kidney disease, requiring start of HD 10/30 Severe anemia requiring blood transfusion Metabolic acidosis Electrolyte imbalance :hyponatremia, hyperkalemia HTN with HTN urgency Hematuria 2 to pt pulled off his Lyles catheter Possibly DAYANA PLAN OF CARE tele BiPAP at HS and prn currently on O2 2 L via NC titrate O2, pulm toilet patient likely has DAYANA. recommend sleep study as OP CXR 11/02 -> Stable slightly increased bilateral pleural effusions. Otherwise little price changer 3 days 10/21 and 10/24 rapid COVID NGT, abx as per ID recs -> Ceftriaxone , completed 10/30 ; s/p Vanco , completed Rx for PNA 7 days, remains afebrile no leucocytosis BCX 10/21 NGTD UCX NGT SCX if able Venous Duplex BLE 10/25 -> NGT CT head revealed bilateral mastoid disease; a new finding ID recommended ENT eval- pending- per primary team on HD- started 10/30 renal US ->Mildly atrophic kidneys. No hydronephrosis or nephrolithiasis. monitor volumes, renal parameters, lytes, correct as needed fup with nephro recs s/p placement of permanent HD catheter R chest 11/07 s/p removal of temporary HD catheter by surgeon ECHO with pEF 55-60% rate control with BB, now added, HR stable on chronic a/c , was on hold for PEG, resume Eliquis swallow eval with aspiration risk diet texture as per ST recs with strict asp precautions and assistance with meals now NGT repeat BSSE 11/04 -> failed, recommended nonoral feeding started on NGT feeding strict aspiration precautions s/p PEG 11/08 asp precautions, GT site care, monitor tolerance of TF now pulled out GT , needs replacement AMS 10/[address] head negative, off sedatives ammonia WNL NGT inserted for meds as per nephro recs ( prior to G tube) NEED NEURO EVAL-per primary AMS improved to baseline HgA1c -6.1 hold oral anti-glycemic SSI prn sensitive initial AMS was most likely due to episode of hypoglycemia CT head NGT for acute ICP -done x 2 BP management with CCB BB and Hydralazine prn for BP spikes monitor HH with goal to keep Hgb above 7 stool OB anemia w/up noted , heme on board s/p 1 dose of Venofer on EPO hematuria resolved, Hgb at baseline GI prophayxlis supportive care WILL NEED TRILOGY VENT TO BE ARRANGED ON DISCHARGE ( pt needs BIPAP at HS and prn ) declined BiPAP last night, but was compliant prior case management aware, work in progress case discussed and evaluated by supervising physician Jonathon Pabon MD 11/12/19 1242: Subjective Allergies: Coded Allergies: PENICILLINS (Verified Allergy, Unknown, 10/25/19) tolerated Ceftriaxone Assessment/Plan Assessment/Plan Patient seen and examined with [employer]. Agree with above A&P as it reflects our joint deliberations. Reema Hanna NP Nov 12, 2019 10:32 Jonathon Pabon MD Nov 12, 2019 12:42
--- NOTE | 2019-11-12 11:27 | Surgery Progress Note ---
Surgery Progress Note Subjective Procedure Performed removal Right femoral temporary hemodialysis catheter Additional Comments agitated confused labs reviewed ng out restrained Objective Last 24 Hour Vital Signs Date Time Temp Pulse Resp B/P (MAP) Pulse Ox O2 Delivery O2 Flow Rate FiO2 11/12/19 09:00 183/75 11/12/19 08:00 97.7 59 18 187/58 (101) 97 11/12/19 07:40 98 Nasal Cannula 2.0 28 11/12/19 04:00 2.0 11/12/19 04:00 66 11/12/19 04:00 97.1 78 21 167/60 (95) 98 11/12/19 00:00 73 11/12/19 00:00 96.8 75 23 168/63 (98) 98 11/12/19 00:00 2.0 11/11/19 21:23 74 159/53 11/11/19 21:00 Nasal Cannula 3.0 11/11/19 20:00 97.7 74 19 159/53 (88) 100 11/11/19 20:00 2.0 11/11/19 20:00 75 11/11/19 19:54 100 Nasal Cannula 2.0 28 11/11/19 18:18 70 148/57 11/11/19 16:00 Nasal Cannula 3.0 11/11/19 16:00 2.0 11/11/19 16:00 97.7 63 20 146/51 (82) 100 11/11/19 16:00 72 11/11/19 12:00 73 11/11/19 12:00 97.7 73 22 152/53 (86) 97 11/11/19 12:00 Nasal Cannula 3.0 11/11/19 12:00 3.0 I&O Intake and Output 11/11/19 11/12/19 19:00 07:00 Intake Total 40 ml 500 ml Balance 40 ml 500 ml Free Water 100 ml Tube Feeding 40 ml 400 ml # Voids 2 3 # Bowel Movements 1 3 Dressing: saturated Cardiovascular: RSR Respiratory: decreased breath sounds Abdomen: soft, non-tender, present bowel sounds Extremities: edema, no tenderness, no cyanosis Laboratory Tests Test 11/12/19 05:55 White Blood Count 10.4 K/UL (4.8-10.8) Red Blood Count 2.90 M/UL (4.70-6.10) L Hemoglobin 8.7 G/DL (14.2-18.0) L Hematocrit 29.3 % (42.0-52.0) L Mean Corpuscular Volume 101 FL (80-99) H Mean Corpuscular Hemoglobin 30.2 PG (27.0-31.0) Mean Corpuscular Hemoglobin Concent 29.8 G/DL (32.0-36.0) L Red Cell Distribution Width 16.3 % (11.6-14.8) H Platelet Count 211 K/UL (150-450) Mean Platelet Volume 6.3 FL (6.5-10.1) L Neutrophils (%) (Auto) % (45.0-75.0) Lymphocytes (%) (Auto) % (20.0-45.0) Monocytes (%) (Auto) % (1.0-10.0) Eosinophils (%) (Auto) % (0.0-3.0) Basophils (%) (Auto) % (0.0-2.0) Neutrophils % (Manual) Pending Lymphocytes % (Manual) Pending Platelet Estimate Pending Platelet Morphology Pending Sodium Level 137 MMOL/L (136-145) Potassium Level 4.1 MMOL/L (3.5-5.1) Chloride Level 101 MMOL/L (98-107) Carbon Dioxide Level 36 MMOL/L (21-32) H Anion Gap 1 mmol/L (5-15) L Blood Urea Nitrogen 51 mg/dL (7-18) H Creatinine 3.0 MG/DL (0.55-1.30) H Estimat Glomerular Filtration Rate 20.2 mL/min (>60) Glucose Level 191 MG/DL (74-106) H Calcium Level 8.4 MG/DL (8.5-10.1) L Phosphorus Level 2.5 MG/DL (2.5-4.9) Total Bilirubin 0.4 MG/DL (0.2-1.0) Aspartate Amino Transf (AST/SGOT) 23 U/L (15-37) Alanine Aminotransferase (ALT/SGPT) 13 U/L (12-78) Alkaline Phosphatase 128 U/L (46-116) H Total Protein 6.1 G/DL (6.4-8.2) L Albumin 2.1 G/DL (3.4-5.0) L Globulin 4.0 g/dL Albumin/Globulin Ratio 0.5 (1.0-2.7) L Plan Problems: (1) Hypercarbia (2) Pleural effusion (3) Chronic renal failure (4) Anemia (5) CHF (congestive heart failure) (6) Bacteremia (7) Cellulitis Assessment & Plan: penile swelling improved no active bleeding reyes okay will monitor (8) Hypoglycemia (9) Hyponatremia (10) ATN (acute tubular necrosis) (11) Metabolic acidosis Assessment & Plan: DYSPHAGIA RISK FACTORS INCLUDE: RESPIRATORY WELL MULTIPLE MEDICAL COMPLICATIONS, SHORTNESS OF BREATH, WORK OF BREATHING, DECREASED MENTATION, HX OF SUBOPTIMAL P.O. INTAKE, LETHARGY (DIFFICULTY SUSTAINING WAKEFULNESS) , CLINICAL HISTORY: AMS CURRENT CXR: Indication: Shortness of breath Technique: One view of the chest Comparison: 10/31/2019 Findings: Interim placement of nasogastric tube, tip projected at the level of the gastric body. This was also demonstrated on 11/01/2019 abdominal radiograph. Bilateral hazy opacity appears similar to or perhaps slightly increased from the prior study. Generalized mild interstitial prominence persists. Impression: Stable slightly increased bilateral pleural effusions Otherwise little spinning frame changer 3 days INITIAL IMPRESSION: PATIENT POSITIONED AT 90 DEGREES UPRIGHT IN BED AND PRESENTED WITH P.O. TRIALS OF ICE CHIPS, ONE AT A TIME. LINGUAL SIZE PRESENTS ENLARGED. PATIENT PERSISTENTLY MOUTH BREATHING. WHEN PRESENTED WITH ONE ICE CHIP HE MANIPULATED IT, ALLOWED IT TO MELT ON HIS TONGUE AND AFTER A MODERATE DELAY, HE SWALLOWED. RR CHANGES FROM 18 BREATHS PER MINUTE TO 25 BREATHS PER MINUTE ALONG WITH WORK OF BREATHING. WHEN ASKED TO SAY "AH" POST SWALLOW, PATIENTS VOCAL QUALITY WAS WET/GURGLY. HYOLARYNGEAL EXCURSION PRESENTED MODERATELY DECREASED. PATIENT ESSENTIALLY NON/VERBAL THIS AFTERNOON. HIGH ASPIRATION RISK. HIS RISK FOR CONSISTENT/STABLE/SUFFICIENT P.O. INTAKE TO SUPPORT NUTRITION/HYDRATION NEEDS. RECOMMENDATIONS: 1. CONTINUE NON/ORAL FEEDING MANAGEMENT PRIMARY SOURCE OF NUTRITION/ HYDRATION/MEDICATION 2. NPO STATUS 3. RE/ORDER SWALLOW EVALUATION IF/WHEN PATIENTS MEDICAL STATUS STABILIZES. DAILY ESTIMATED NEEDS: Needs based on Critical care, wound 71kg abw 22-28 kcals/kg 4151-6643 total kcals 1.25-2 g protein/kg 88-154 g total protein 25-30 mL/kg 2817-4253 total fluid mLs NUTRITION DIAGNOSIS: 1) Swallowing difficulty r/t respiratory status as evidenced by pt is vent dep via trach, GT dep. 2) Increased kcal/prot needs R/T wound healing as evidenced by pt admitted w/ multiple wounds including full thickness x3, refer to wound care eval for full report. CURRENT TF:NPO ENTERAL NUTRITION RECOMMENDATIONS: Glucerna 1.2 @60ml/hr x24 hrs + Prosource 1pkt QD to provide 1440ml, 1728 kcal, 86g +11g pro, 1159ml free H2o - As medically appropriate, initiate Glucerna 1.2 @ 30ml/hr x 6hrs - Advance 10ml q 4-6 hrs as tolerated to goal rate - Add Prosource 1pkt daily to better meet protein needs - HOB over 30 degrees/ water flush 120ml q 4hrs PARENTERAL NUTRITION RECOMMENDATIONS TPN Comment: Rec TPN to meet est needs with anticipated prolonged NPO status ADDITIONAL RECOMMENDATIONS: 1) Calibrated bedscale wt 2) Rec adding D5 IVF while pt is NPO to prevent hypoglycemia 3) Monitor lytes w/ TF, replete as needed 4) Wound healing: Vit C 250mg BID + SILVESTRE BID w/ TF orders 5) Monitor need for NISS w/ TF: h/o DM 6) Consider TPN w/ anticipated prolonged NPO status (12) Pneumonia (13) Cellulitis of foot Assessment & Plan: Pt presented on admission with Bilat TMA. Pressure injuries both heels. Stable dry necrosis note to Plantar /lateral L TMA. L Heel is boggy with non- Blanchable erythema. . R Heel Boggy with Non-Blanchable erythema.Haemosiderin with Xerosis skin noted to R and L lower ext. Darker skin tone without erythema , induration or fluctuance Medial L Malleolus. Darker skin tone without erythema or induration noted to sacrum. Tx.Plan: Apply Moisture Barrier Paste to Sacrum. Cover with Optifoam drsg.Change every 3 days and prn. Apply Betadine to eschar plantar/lateral L TMA . Cover with Optifoam drsg. Change every 3 days and prn. Apply Cavilon Skin Barrier to both heels and Malleoli. Cover each site with Optifoam drsg. Change every 7days and prn. Reposition at least every 2hours or as tolerated. Off load heels with pillow.Hx prior amputation prior MRI and plain films reviewed wounds stable and local care being provided no abscess noted cont with dressings elevate heels with pillow turn q2h off load pressure air mattress will follow with recs thank you (14) Osteomyelitis (15) History of hypertension (16) Renal failure (ARF), acute on chronic Assessment & Plan: HD line removed 11/09 (17) Acute encephalopathy (18) Diabetes mellitus (19) Hypertension (20) Cholelithiasis Assessment & Plan: US reviewed exam benign asymptomatic cholelithiasis alk phos mild elevated lfts improved trend labs no acute surgical intervention planned Liver: Liver measures 14.8 cm. No intrahepatic bile duct dilation. Gallbladder: Small stone in the gallbladder. No significant gallbladder wall thickening or pericholecystic fluid. Negative sonographic Bianchi's sign. Common bile duct: Normal common bile duct measuring 4.5 mm. No stones. No dilation. Pancreas: Pancreas is not visualized due to overlying bowel gas. Kidneys: Right kidney measures 9.1 cm in length. No hydronephrosis or stone. Left kidney not visualized due to patient's body habitus. Spleen: Spleen measures 9.4 cm. No focal lesion. Aorta: Visualized portions of the aorta are grossly unremarkable. The mid and distal portions are obscured by bowel gas. Inferior vena cava: Unremarkable. Free fluid: No ascites. Tubes, lines and devices: Reyes catheter in a decompressed bladder. IMPRESSION: Small stone in the gallbladder. No significant gallbladder wall thickening or pericholecystic fluid. Negative sonographic Bianchi's sign. Mariusz Diehl Nov 12, 2019 11:27
[2019-11-12 12:00] VITALS: BP 181/61
--- NOTE | 2019-11-12 12:25 | Nephrology Progress Note ---
Assessment/Plan Problem List: (1) Renal failure (ARF), acute on chronic (2) Metabolic acidosis (3) Electrolyte imbalance Assessment: Hyponatremia and hyperkalemia (4) Anemia (5) CHF (congestive heart failure) Assessment 79-year-old male is admitted for hypoglycemia Patient has renal failure which appears to be acute on chronic Hyperkalemia Hyponatremia CHF, pleural effusion, pneumonia Anemia Metabolic acidosis Hypothyroidism Plan November 11: Patient last dialyzed November 09. Patient pulled out the GT tube. Slight bleeding from the site observed. GI to reinsert. Zestril added for BP control. Next hemodialysis tomorrow. November 10: Patient was dialyzed yesterday. Labs reviewed. Stable from renal standpoint of view. November 09: Patient due for dialysis today due to incomplete dialysis yesterday as a result of catheter malfunction. The femoral catheter was already removed this morning. Labs reviewed. Continue current management. November 08: Dialysis attempted through the permacath which was put in yesterday by IR. Due to high catheter pressure , dialysis was held and PTAse administered. Dialysis will be tried again tomorrow. Will check labs tomorrow. November 07: Patient due for tunneled catheter insertion today. Will order dialysis tomorrow. Continue to monitor renal parameters. Labs and medications reviewed. November 06: Patient due for tunnel catheter insertion November 07. Serum creatinine is rising. Labs reviewed. Continue per consultants. November 05: Last dialysis November 03. Eliquis on hold. Due tunneled catheter insertion on November 07. Labs are reviewed. Continue current management. November 04: Dialyzed yesterday. Due for insertion of tunneled catheter today. May need to hold Eliquis and reschedule catheter insertion on Friday. Will monitor renal parameters in the meantime. November 03: Dialyzed this morning. Stable from renal standpoint of view. Due for insertion of tunneled catheter tomorrow. November 02: Dialyzed yesterday. Will DC IV fluid. Dialysis tomorrow. Potassium supplement given. Per orders. November 01: Patient currently being dialyzed. Tolerating well. Labs will be reviewed. Continue per consultants. October 31: Patient was dialyzed yesterday. Clinically doing better. We will continue to monitor renal parameters. Dialysis as needed. October 30: Serum creatinine rising. Patient due to have a temporary dialysis catheter and due for dialysis today. Will continue to follow-up renal parameters. Patient remains full code. October 29: Serum creatinine rising. Serum creatinine 4.5 today. Calculated creatinine clearance is 12. Kidney ultrasound ordered yesterday results were reviewed. Patient appears to have acute renal failure due to underlying sepsis and nephrotoxic medications. Patient requires dialysis treatment. Ordered to obtain consent from the responsible libertarian. Will communicate with PMD and or he is coverage. October 28: Serum creatinine higher to 4.2 today. Blood pressure appears more stable. In view of worsening renal failure, will order stat kidney ultrasound and urine studies. Continue to monitor renal parameters. Patient is full code. Worsening renal parameters may lead to hemodialysis treatment. October 27: Patient pulled out the Lyles catheter. Serum creatinine went up to 3.8. Blood pressure somewhat low. Heart rate in 50s. Will discontinue Coreg. We will continue to monitor renal parameters. October 26: Serum creatinine lower again today. Will abort the dialysis plan. Continue per consultants. Continue to monitor renal parameters. Medication list reviewed. October 25: Clinically improving. Serum creatinine lower. Urine output increased. No dialysis planned at this time. Continue per consultants. October 24: Patient's respiratory status somewhat improved. Serum creatinine down to 3.9. Urinary output somewhat increased. Will hold placement of dialysis catheter at this time. Blood pressure medication adjusted. Continue to monitor renal parameters. Per orders. October 23: Patient remains on BiPAP. More Kayexalate ordered. Will consider hemodialysis to correct fluid overload and hyperkalemia and acidosis. Will discuss with PMD. Meanwhile IV Synthroid started. Discussed with BENJAMIN Aguirre Patient already transfused 1 unit for severe anemia previously Will initiate Epogen 10,000 units subcutaneously 1 dose of IV iron Venofer 200 g IV Kayexalate for hyperkalemia as needed 2D echocardiogram ordered, ejection fraction is reported normal Kidney ultrasound ordered: Kidneys: Right kidney measures 9.1 cm in length. No hydronephrosis or stone. Left kidney not visualized due to patient's body habitus. Avoid nephrotoxic's Monitor renal parameters Will hold insulin and hypoglycemic agents until hypoglycemia is reasonably resolved Subjective ROS Limited/Unobtainable: Yes Objective Objective Last 24 Hour Vital Signs Date Time Temp Pulse Resp B/P (MAP) Pulse Ox O2 Delivery O2 Flow Rate FiO2 11/12/19 12:00 97.6 69 19 181/61 (101) 100 11/12/19 12:00 2.0 11/12/19 09:00 Nasal Cannula 2.0 11/12/19 09:00 183/75 11/12/19 08:00 97.7 59 18 187/58 (101) 97 11/12/19 08:00 80 11/12/19 08:00 2.0 11/12/19 07:40 98 Nasal Cannula 2.0 28 11/12/19 04:00 2.0 11/12/19 04:00 66 11/12/19 04:00 97.1 78 21 167/60 (95) 98 11/12/19 00:00 73 11/12/19 00:00 96.8 75 23 168/63 (98) 98 11/12/19 00:00 2.0 11/11/19 21:23 74 159/53 11/11/19 21:00 Nasal Cannula 3.0 11/11/19 20:00 97.7 74 19 159/53 (88) 100 11/11/19 20:00 2.0 11/11/19 20:00 75 11/11/19 19:54 100 Nasal Cannula 2.0 28 11/11/19 18:18 70 148/57 11/11/19 16:00 Nasal Cannula 3.0 11/11/19 16:00 2.0 11/11/19 16:00 97.7 63 20 146/51 (82) 100 11/11/19 16:00 72 Intake and Output 11/11/19 11/12/19 19:00 07:00 Intake Total 40 ml 500 ml Balance 40 ml 500 ml Free Water 100 ml Tube Feeding 40 ml 400 ml # Voids 2 3 # Bowel Movements 1 3 Current Medications Medications (Trade) Dose Ordered Sig/Cammy Route PRN Reason Start Time Stop Time Status Last Admin Dose Admin Acetaminophen (Tylenol) 650 mg Q6H PRN NG Pain 3-5 11/11/19 00:00 12/02/19 00:00 11/12/19 04:01 Amlodipine Besylate (Norvasc) 5 mg BID NG 11/11/19 09:00 11/25/19 08:59 11/11/19 18:18 Apixaban (Eliquis) 2.5 mg BID NG 11/11/19 09:00 02/08/20 17:59 11/11/19 18:18 Atorvastatin Calcium (Lipitor) 10 mg BEDTIME NG 11/11/19 21:00 01/21/20 20:59 11/11/19 21:23 Chlorhexidine Gluconate (Yi-Hex 2%) 1 applic DAILY@1999 TOPIC 11/11/19 20:00 01/31/20 19:59 11/11/19 21:23 Dextrose (Dextrose 50%) 25 ml Q30M PRN IV Hypoglycemia 11/10/19 23:45 01/20/20 21:44 Dextrose (Dextrose 50%) 50 ml Q30M PRN IV Hypoglycemia 11/10/19 23:45 01/20/20 21:44 Docusate Sodium (Colace) 100 mg THREE TIMES A DAY NG 11/11/19 09:00 12/02/19 17:59 11/11/19 18:17 Epoetin William (Epoetin William(ESRD on dialysis)) 10,000 unit SUBQ 11/12/19 21:00 02/01/20 20:59 Haloperidol (Haldol) 5 mg Q12H PRN NG Agitation 11/11/19 00:00 12/26/19 00:00 Haloperidol Lactate (Haldol) 5 mg Q6H PRN IM Agitation 11/11/19 00:00 12/10/19 00:00 Hydralazine HCl (Apresoline) 10 mg Q4H PRN IV For High Blood Pressure 11/11/19 00:00 01/24/20 00:00 11/12/19 09:00 Insulin Aspart (NovoLOG) Q6HR SUBQ 11/11/19 00:00 01/31/20 06:29 11/12/19 06:46 Lactulose (Cephulac) 10 gm BID NG 11/11/19 09:00 12/01/19 08:59 11/11/19 18:17 Lansoprazole (Prevacid) 30 mg DAILY GT 11/11/19 09:00 12/11/19 08:59 11/11/19 09:00 Levothyroxine Sodium (Synthroid) 75 mcg DAILY@0630 NG 11/11/19 06:30 12/04/19 06:29 11/12/19 06:43 Metoprolol Tartrate (Lopressor) 25 mg Q12HR NG 11/11/19 09:00 02/08/20 20:59 11/11/19 21:23 Polyethylene Glycol (Miralax) 17 gm BEDTIME NG 11/11/19 21:00 12/01/19 20:59 11/11/19 21:23 Sennosides (Senokot) 8.6 mg HSPRN PRN NG Constipation 11/11/19 00:00 12/02/19 00:00 Sevelamer Carbonate (Renvela) 1,600 mg THREE TIMES A DAY NG 11/11/19 09:00 01/21/20 17:59 11/11/19 18:18 Laboratory Tests 11/12/19 05:55: White Blood Count 10.4, Red Blood Count 2.90L, Hemoglobin 8.7L, Hematocrit 29.3L , Mean Corpuscular Volume 101H, Mean Corpuscular Hemoglobin 30.2, Mean Corpuscular Hemoglobin Concent 29.8L, Red Cell Distribution Width 16.3H, Platelet Count 211, Mean Platelet Volume 6.3L, Neutrophils (%) (Auto) , Lymphocytes (%) (Auto) , Monocytes (%) (Auto) , Eosinophils (%) (Auto) , Basophils (%) (Auto) , Differential Total Cells Counted 100, Neutrophils % ( Manual) 91H, Lymphocytes % (Manual) 6L, Monocytes % (Manual) 3, Eosinophils % ( Manual) 0, Basophils % (Manual) 0, Band Neutrophils 0, Platelet Estimate Adequate, Platelet Morphology Normal, Hypochromasia 1+, Anisocytosis 1+, Macrocytosis Occasional, Stomatocytes Rare, Sodium Level 137, Potassium Level 4.1, Chloride Level 101, Carbon Dioxide Level 36H, Anion Gap 1L, Blood Urea Nitrogen 51H, Creatinine 3.0H, Estimat Glomerular Filtration Rate 20.2, Glucose Level 191H, Calcium Level 8.4L, Phosphorus Level 2.5, Total Bilirubin 0.4, Aspartate Amino Transf (AST/SGOT) 23, Alanine Aminotransferase (ALT/SGPT) 13, Alkaline Phosphatase 128H, Total Protein 6.1L, Albumin 2.1L, Globulin 4.0, Albumin/Globulin Ratio 0.5L Height (Feet): 5 Height (Inches): 4.00 Weight (Pounds): 195 General Appearance: lethargic, confused Neck: limited range of motion Cardiovascular: other - Variable Respiratory/Chest: decreased breath sounds Abdomen: distended, other - Pulled out the GT tube Objective No change Naveed Vanegas MD Nov 12, 2019 12:25
--- NOTE | 2019-11-12 12:26 | General Progress Note ---
Assessment/Plan Problem List: (1) Hypertension ICD Codes: I10 - Essential (primary) hypertension SNOMED: 11775768 (2) Diabetes mellitus ICD Codes: E11.9 - Type 2 diabetes mellitus without complications SNOMED: 97251059 (3) Anemia ICD Codes: D64.9 - Anemia, unspecified SNOMED: 626662132 (4) Cholelithiasis ICD Codes: K80.20 - Calculus of gallbladder without cholecystitis without obstruction SNOMED: 498399597 (5) CHF (congestive heart failure) ICD Codes: I50.9 - Heart failure, unspecified SNOMED: 21398705 Assessment/Plan: HD per nephrology patient pulled the GT out ordered repeat swallow eval may need peg on Friday if he fails Subjective ROS Limited/Unobtainable: Yes Allergies: Coded Allergies: PENICILLINS (Verified Allergy, Unknown, 10/25/19) tolerated Ceftriaxone Objective Last 24 Hour Vital Signs Date Time Temp Pulse Resp B/P (MAP) Pulse Ox O2 Delivery O2 Flow Rate FiO2 11/12/19 12:00 97.6 69 19 181/61 (101) 100 11/12/19 12:00 2.0 11/12/19 09:00 Nasal Cannula 2.0 11/12/19 09:00 183/75 11/12/19 08:00 97.7 59 18 187/58 (101) 97 11/12/19 08:00 80 11/12/19 08:00 2.0 11/12/19 07:40 98 Nasal Cannula 2.0 28 11/12/19 04:00 2.0 11/12/19 04:00 66 11/12/19 04:00 97.1 78 21 167/60 (95) 98 11/12/19 00:00 73 11/12/19 00:00 96.8 75 23 168/63 (98) 98 11/12/19 00:00 2.0 11/11/19 21:23 74 159/53 11/11/19 21:00 Nasal Cannula 3.0 11/11/19 20:00 97.7 74 19 159/53 (88) 100 11/11/19 20:00 2.0 11/11/19 20:00 75 11/11/19 19:54 100 Nasal Cannula 2.0 28 11/11/19 18:18 70 148/57 11/11/19 16:00 Nasal Cannula 3.0 11/11/19 16:00 2.0 11/11/19 16:00 97.7 63 20 146/51 (82) 100 11/11/19 16:00 72 Intake and Output 11/11/19 11/12/19 19:00 07:00 Intake Total 40 ml 500 ml Balance 40 ml 500 ml Free Water 100 ml Tube Feeding 40 ml 400 ml # Voids 2 3 # Bowel Movements 1 3 Laboratory Tests 11/12/19 05:55: White Blood Count 10.4, Red Blood Count 2.90L, Hemoglobin 8.7L, Hematocrit 29.3L , Mean Corpuscular Volume 101H, Mean Corpuscular Hemoglobin 30.2, Mean Corpuscular Hemoglobin Concent 29.8L, Red Cell Distribution Width 16.3H, Platelet Count 211, Mean Platelet Volume 6.3L, Neutrophils (%) (Auto) , Lymphocytes (%) (Auto) , Monocytes (%) (Auto) , Eosinophils (%) (Auto) , Basophils (%) (Auto) , Differential Total Cells Counted 100, Neutrophils % ( Manual) 91H, Lymphocytes % (Manual) 6L, Monocytes % (Manual) 3, Eosinophils % ( Manual) 0, Basophils % (Manual) 0, Band Neutrophils 0, Platelet Estimate Adequate, Platelet Morphology Normal, Hypochromasia 1+, Anisocytosis 1+, Macrocytosis Occasional, Stomatocytes Rare, Sodium Level 137, Potassium Level 4.1, Chloride Level 101, Carbon Dioxide Level 36H, Anion Gap 1L, Blood Urea Nitrogen 51H, Creatinine 3.0H, Estimat Glomerular Filtration Rate 20.2, Glucose Level 191H, Calcium Level 8.4L, Phosphorus Level 2.5, Total Bilirubin 0.4, Aspartate Amino Transf (AST/SGOT) 23, Alanine Aminotransferase (ALT/SGPT) 13, Alkaline Phosphatase 128H, Total Protein 6.1L, Albumin 2.1L, Globulin 4.0, Albumin/Globulin Ratio 0.5L Height (Feet): 5 Height (Inches): 4.00 Weight (Pounds): 195 General Appearance: no apparent distress EENT: normal ENT inspection Neck: supple Cardiovascular: normal rate Respiratory/Chest: decreased breath sounds Abdomen: normal bowel sounds, non tender, soft Extremities: non-tender Lawrence Humphreys MD Nov 12, 2019 12:26
[2019-11-12] MEDS: Lisinopril 2.5mg tab GT SCH (12:30)
[2019-11-12 16:00] VITALS: BP 187/69
[2019-11-12] MEDS: Dyna-Hex 2% Top Sol 2oz TOPIC SCH (20:46)
[2019-11-12] MEDS: Miralax 17gm pkt NG SCH (21:00)
[2019-11-12] MEDS ORDERED: Epoetin Alfa-EPBX(ESRD on dialysis)10,000 unit/ml vial SUBQ SCH (21:00)
--- NOTE | 2019-11-12 23:26 | Psych Consult Progress Note ---
Psychiatry Progress Note Psychiatry Progress Note Subjective confused agitations disoriented Medications Current Medications Medications (Trade) Dose Ordered Sig/Cammy Route PRN Reason Start Time Stop Time Status Last Admin Dose Admin Acetaminophen (Tylenol) 650 mg Q6H PRN NG Pain 3-5 11/11/19 00:00 12/02/19 00:00 11/12/19 04:01 Amlodipine Besylate (Norvasc) 10 mg DAILY NG 11/13/19 09:00 11/25/19 08:59 Apixaban (Eliquis) 2.5 mg BID NG 11/11/19 09:00 02/08/20 17:59 11/11/19 18:18 Atorvastatin Calcium (Lipitor) 10 mg BEDTIME NG 11/11/19 21:00 01/21/20 20:59 11/11/19 21:23 Chlorhexidine Gluconate (Yi-Hex 2%) 1 applic DAILY@1999 TOPIC 11/11/19 20:00 01/31/20 19:59 11/12/19 20:46 Clonidine HCl (Catapres TTS-1) 1 patch QWEEK TDERMAL 11/12/19 19:00 02/10/20 18:59 11/12/19 20:57 Dextrose (Dextrose 50%) 25 ml Q30M PRN IV Hypoglycemia 11/10/19 23:45 01/20/20 21:44 Dextrose (Dextrose 50%) 50 ml Q30M PRN IV Hypoglycemia 11/10/19 23:45 01/20/20 21:44 Docusate Sodium (Colace) 100 mg THREE TIMES A DAY NG 11/11/19 09:00 12/02/19 17:59 11/11/19 18:17 Epoetin William (Epoetin William(ESRD on dialysis)) 10,000 unit FRI-FRI-FRI SUBQ 11/12/19 21:00 02/01/20 20:59 11/12/19 23:19 Haloperidol (Haldol) 5 mg Q12H PRN NG Agitation 11/11/19 00:00 12/26/19 00:00 Haloperidol Lactate (Haldol) 5 mg Q6H PRN IM Agitation 11/11/19 00:00 12/10/19 00:00 Hydralazine HCl (Apresoline) 10 mg Q4H PRN IV For High Blood Pressure 11/11/19 00:00 11/2/20 00:00 11/12/19 23:20 Insulin Aspart (NovoLOG) Q6HR SUBQ 11/11/19 00:00 01/31/20 06:29 11/12/19 06:46 Lactulose (Cephulac) 10 gm BID NG 11/11/19 09:00 12/01/19 08:59 11/11/19 18:17 Lansoprazole (Prevacid) 30 mg DAILY GT 11/11/19 09:00 12/11/19 08:59 11/11/19 09:00 Levothyroxine Sodium (Synthroid) 75 mcg DAILY@0630 NG 11/11/19 06:30 12/04/19 06:29 11/12/19 06:43 Lisinopril (ZestriL) 5 mg DAILY GT 11/12/19 12:30 12/12/19 12:29 Metoprolol Tartrate (Lopressor) 25 mg Q12HR NG 11/11/19 09:00 02/08/20 20:59 11/11/19 21:23 Polyethylene Glycol (Miralax) 17 gm BEDTIME NG 11/11/19 21:00 12/01/19 20:59 11/11/19 21:23 Sennosides (Senokot) 8.6 mg HSPRN PRN NG Constipation 11/11/19 00:00 12/02/19 00:00 Sevelamer Carbonate (Renvela) 1,600 mg THREE TIMES A DAY NG 11/11/19 09:00 01/21/20 17:59 11/11/19 18:18 Neurological/Psychiatric: Denies: no symptoms, anxiety, depressed, emotional problems, headache, numbness, paresthesia, pre-existing deficit, seizure, tingling, tremors, weakness, other Allergies: Coded Allergies: PENICILLINS (Verified Allergy, Unknown, 10/25/19) tolerated Ceftriaxone Objective Data Height (Feet): 5 Height (Inches): 4.00 Weight (Pounds): 195 General Appearance: WD/WN, no apparent distress, alert, confused Appearance: no abnormalities noted Behavior Mannerisms: good eye contact Mental Status Exam - Affect: blunted Mental Status Exam - Mood: anxious, agitated Mental Status Exam - Thought P: tangential, confusion Mental Status Exam - Thought C: delusions (specify) Mental Status Exam - Suicidal: not present Additional Comments: awake, confused, and disoriented. Mood is agitated. Affect is flat. Thought process, there is a paucity of thought content. Thought content, no suicidal or homicidal ideation. Cognition is impaired. Insight and judgment impaired. Dada Finch MD Nov 12, 2019 23:26
[2019-11-13] VITALS: BP 159/57
[2019-11-13 04:00] VITALS: BP 155/60
[2019-11-13] MEDS: NovoLOG Insulin Flexpen SUBQ SCH ×4 (06:00→17:41)
--- NOTE | 2019-11-13 07:13 | General Progress Note ---
Assessment/Plan Problem List: (1) Hypertension ICD Codes: I10 - Essential (primary) hypertension SNOMED: 73025765 (2) Diabetes mellitus ICD Codes: E11.9 - Type 2 diabetes mellitus without complications SNOMED: 06582686 (3) Anemia ICD Codes: D64.9 - Anemia, unspecified SNOMED: 108626611 (4) Cholelithiasis ICD Codes: K80.20 - Calculus of gallbladder without cholecystitis without obstruction SNOMED: 835106088 (5) CHF (congestive heart failure) ICD Codes: I50.9 - Heart failure, unspecified SNOMED: 51304869 Assessment/Plan: HD per nephrology patient pulled the GT out ordered repeat swallow eval>>pending NGTF for now may need another peg Subjective ROS Limited/Unobtainable: No Allergies: Coded Allergies: PENICILLINS (Verified Allergy, Unknown, 10/25/19) tolerated Ceftriaxone Objective Last 24 Hour Vital Signs Date Time Temp Pulse Resp B/P (MAP) Pulse Ox O2 Delivery O2 Flow Rate FiO2 11/13/19 05:33 172/62 11/13/19 00:00 2.0 11/13/19 00:00 97.5 88 22 159/57 (91) 98 11/12/19 23:20 164/66 11/12/19 21:00 Nasal Cannula 2.0 11/12/19 20:57 155/88 11/12/19 20:07 97 Nasal Cannula 2.0 28 11/12/19 20:00 88 11/12/19 16:36 187/69 11/12/19 16:00 96.6 85 18 187/69 (108) 99 11/12/19 16:00 2.0 11/12/19 16:00 72 11/12/19 12:00 77 11/12/19 12:00 97.6 69 19 181/61 (101) 100 11/12/19 12:00 2.0 11/12/19 09:00 Nasal Cannula 2.0 11/12/19 09:00 183/75 11/12/19 08:00 97.7 59 18 187/58 (101) 97 11/12/19 08:00 80 11/12/19 08:00 2.0 11/12/19 07:40 98 Nasal Cannula 2.0 28 Intake and Output 11/12/19 11/13/19 19:00 07:00 Intake Total 25 ml Output Total 600 ml Balance -575 ml Tube Feeding 25 ml Output Urine Total 600 ml # Voids 3 Laboratory Tests 11/13/19 05:41: POC Whole Blood Glucose 165H Height (Feet): 5 Height (Inches): 4.00 Weight (Pounds): 195 General Appearance: lethargic EENT: normal ENT inspection Neck: supple Cardiovascular: normal rate Respiratory/Chest: decreased breath sounds Abdomen: hypoactive bowel sounds Extremities: non-tender Lawrence Humphreys MD Nov 13, 2019 07:13
[2019-11-13 08:00] VITALS: BP 164/66
--- NOTE | 2019-11-13 08:19 | Pulmonology Progress Note ---
Subjective ROS Limited/Unobtainable: No Allergies: Coded Allergies: PENICILLINS (Verified Allergy, Unknown, 10/25/19) tolerated Ceftriaxone All Systems: reviewed and negative except above Subjective on tele s/p perm HD catheter placement 11/07 s/p PEG 11/08 awake, alert, afebrile on 2l O2 via NC BiPAP at HS but refused BiPAP last night no signs of resp distress pulled out G tube, swallow eval pending NGT for now Objective Last 24 Hour Vital Signs Date Time Temp Pulse Resp B/P (MAP) Pulse Ox O2 Delivery O2 Flow Rate FiO2 11/13/19 07:51 98 Nasal Cannula 2.0 28 11/13/19 05:33 172/62 11/13/19 04:00 83 11/13/19 04:00 2.0 11/13/19 04:00 97.9 92 18 155/60 (91) 96 11/13/19 00:00 85 11/13/19 00:00 2.0 11/13/19 00:00 97.5 88 22 159/57 (91) 98 11/12/19 23:20 164/66 11/12/19 21:00 Nasal Cannula 2.0 11/12/19 20:57 155/88 11/12/19 20:07 97 Nasal Cannula 2.0 28 11/12/19 20:00 88 11/12/19 16:36 187/69 11/12/19 16:00 96.6 85 18 187/69 (108) 99 11/12/19 16:00 2.0 11/12/19 16:00 72 11/12/19 12:00 77 11/12/19 12:00 97.6 69 19 181/61 (101) 100 11/12/19 12:00 2.0 11/12/19 09:00 Nasal Cannula 2.0 11/12/19 09:00 183/75 Intake and Output 11/12/19 11/13/19 19:00 07:00 Intake Total 25 ml Output Total 600 ml 250 ml Balance -575 ml -250 ml Tube Feeding 25 ml Output Urine Total 600 ml 250 ml # Voids 3 Objective General Appearance: no apparent distress, Yoruba speaking awake, more alert and responsive male, Lines, tubes and drains: R chest tunneled HD catheter , R femoral temporal HD catheter HEENT: normocephalic, atraumatic, anicteric, mucous membranes moist, O2 2 L via NC, NGT Respiratory/Chest: few scattered crackles, no exp wheezing, Cardiovascular/Chest: normal rate, SR Abdomen: normal bowel sounds, non tender, soft Extremities: partially amputated BL foot/metatarsal Skin Exam: warm/dry Neurologic: abnormal gait, awake, more responsive responsive, Musculoskeletal: atrophy BLE Laboratory Tests 11/13/19 05:41: POC Whole Blood Glucose 165H Current Medications Medications (Trade) Dose Ordered Sig/Cammy Route PRN Reason Start Time Stop Time Status Last Admin Dose Admin Acetaminophen (Tylenol) 650 mg Q6H PRN NG Pain 3-5 11/11/19 00:00 12/02/19 00:00 11/12/19 04:01 Amlodipine Besylate (Norvasc) 10 mg DAILY NG 11/13/19 09:00 11/25/19 08:59 Apixaban (Eliquis) 2.5 mg BID NG 11/11/19 09:00 02/08/20 17:59 11/11/19 18:18 Atorvastatin Calcium (Lipitor) 10 mg BEDTIME NG 11/11/19 21:00 01/21/20 20:59 11/11/19 21:23 Chlorhexidine Gluconate (Yi-Hex 2%) 1 applic DAILY@1999 TOPIC 11/11/19 20:00 01/31/20 19:59 11/12/19 20:46 Clonidine HCl (Catapres TTS-1) 1 patch QWEEK TDERMAL 11/12/19 19:00 02/10/20 18:59 11/12/19 20:57 Dextrose (Dextrose 50%) 25 ml Q30M PRN IV Hypoglycemia 11/10/19 23:45 01/20/20 21:44 Dextrose (Dextrose 50%) 50 ml Q30M PRN IV Hypoglycemia 11/10/19 23:45 01/20/20 21:44 Docusate Sodium (Colace) 100 mg THREE TIMES A DAY NG 11/11/19 09:00 12/02/19 17:59 11/11/19 18:17 Epoetin William (Epoetin William(ESRD on dialysis)) 10,000 unit FRI-WED-FRI SUBQ 11/12/19 21:00 02/01/20 20:59 11/12/19 23:19 Haloperidol (Haldol) 5 mg Q12H PRN NG Agitation 11/11/19 00:00 12/26/19 00:00 Haloperidol Lactate (Haldol) 5 mg Q6H PRN IM Agitation 11/11/19 00:00 12/10/19 00:00 Hydralazine HCl (Apresoline) 10 mg Q4H PRN IV For High Blood Pressure 11/11/19 00:00 01/24/20 00:00 11/13/19 05:33 Insulin Aspart (NovoLOG) Q6HR SUBQ 11/11/19 00:00 01/31/20 06:29 11/12/19 06:46 Lactulose (Cephulac) 10 gm BID NG 11/11/19 09:00 12/01/19 08:59 11/11/19 18:17 Lansoprazole (Prevacid) 30 mg DAILY GT 11/11/19 09:00 12/11/19 08:59 11/11/19 09:00 Levothyroxine Sodium (Synthroid) 75 mcg DAILY@0630 NG 11/11/19 06:30 12/04/19 06:29 11/12/19 06:43 Lisinopril (ZestriL) 5 mg DAILY GT 11/12/19 12:30 12/12/19 12:29 Metoprolol Tartrate (Lopressor) 25 mg Q12HR NG 11/11/19 09:00 02/08/20 20:59 11/11/19 21:23 Polyethylene Glycol (Miralax) 17 gm BEDTIME NG 11/11/19 21:00 12/01/19 20:59 11/11/19 21:23 Sennosides (Senokot) 8.6 mg HSPRN PRN NG Constipation 11/11/19 00:00 12/02/19 00:00 Sevelamer Carbonate (Renvela) 1,600 mg THREE TIMES A DAY NG 11/11/19 09:00 01/21/20 17:59 11/11/19 18:18 Assessment/Plan Assessment/Plan ASSESSMENT Acute hypoxemic hypercapnic respiratory failure requiring BiPAP Acute metabolic encephalopathy likely due to hypoglycemia Diabetes mellitus with initial hypoglycemia Probably pneumonia , s/p Rx Aspiration risk Dysphagia , s/p PEG Acute kidney injury on chronic kidney disease, requiring start of HD 10/30 Severe anemia requiring blood transfusion Metabolic acidosis Electrolyte imbalance :hyponatremia, hyperkalemia HTN with HTN urgency Hematuria 2 to pt pulled off his Lyles catheter Possibly DAYANA PLAN OF CARE tele BiPAP at HS and prn currently on O2 2 L via NC titrate O2, pulm toilet patient likely has DAYANA. recommend sleep study as OP CXR 11/02 -> Stable slightly increased bilateral pleural effusions. Otherwise little changeover operator 3 days 10/21 and 10/24 rapid COVID NGT, abx as per ID recs -> Ceftriaxone , completed 10/30 ; s/p Vanco , completed Rx for PNA 7 days, remains afebrile no leucocytosis BCX 10/21 NGTD UCX NGT SCX if able Venous Duplex BLE 10/25 -> NGT CT head revealed bilateral mastoid disease; a new finding ID recommended ENT eval- pending- per primary team remains afebrile, asymptomatic on HD- started 10/30 renal US ->Mildly atrophic kidneys. No hydronephrosis or nephrolithiasis. monitor volumes, renal parameters, lytes, correct as needed fup with nephro recs s/p placement of permanent HD catheter R chest 11/07 s/p removal of temporary HD catheter by surgeon ECHO with pEF 55-60% rate control with BB, now added, HR stable on chronic a/c , was on hold for PEG, resume Eliquis swallow eval with aspiration risk diet texture as per ST recs with strict asp precautions and assistance with meals now NGT repeat BSSE 11/04 -> failed, recommended nonoral feeding started on NGT feeding strict aspiration precautions s/p PEG 11/08 asp precautions, GT site care, monitor tolerance of TF now pulled out GT , needs replacement swallow eval ordered NGT for now GI follows may need anotehr PEG if fails swallow eval AMS 10/[address] head negative, off sedatives ammonia WNL NGT inserted for meds as per nephro recs ( prior to G tube) NEED NEURO EVAL-per primary AMS improved to baseline psych follows HgA1c -6.1 hold oral anti-glycemic SSI prn sensitive initial AMS was most likely due to episode of hypoglycemia CT head NGT for acute ICP -done x 2 BP management with CCB BB and Hydralazine prn for BP spikes monitor HH with goal to keep Hgb above 7 stool OB anemia w/up noted , heme on board s/p 1 dose of Venofer on EPO hematuria resolved, Hgb at baseline GI prophayxlis supportive care WILL NEED TRILOGY VENT TO BE ARRANGED ON DISCHARGE ( pt needs BIPAP at HS and prn ) declined BiPAP last night, but was compliant prior, need reenforcement to use BiPAP at HS case management aware, work in progress case discussed and evaluated by supervising physician Reema Hanna NP Nov 13, 2019 08:19
[2019-11-13] MEDS ORDERED: Tubing IV Secondary IV ONE (08:23)
[2019-11-13 08:52] LABS: HEMATOCRIT 32.8 % (42.0-52.0); HEMOGLOBIN 9.8 G/DL (14.2-18.0); MEAN CORPUSCULAR VOLUME 101 FL (80-99); PLATELET COUNT 237 K/UL (150-450); RED BLOOD COUNT 3.25 M/UL (4.70-6.10); RED CELL DISTRIBUTION WIDTH 16.4 % (11.6-14.8); WHITE BLOOD COUNT 10.6 K/UL (4.8-10.8)
[2019-11-13 09:20] LABS: ALANINE AMINOTRANSFERASE 12 U/L (12-78); ALBUMIN 2.3 G/DL (3.4-5.0); ALBUMIN/GLOBULIN RATIO 0.6 (1.0-2.7); ALKALINE PHOSPHATASE 108 U/L (46-116); ANION GAP 6 mmol/L (5-15); ASPARTATE AMINO TRANSFERASE 23 U/L (15-37); BILIRUBIN,TOTAL 0.5 MG/DL (0.2-1.0); BLOOD UREA NITROGEN 55 mg/dL (7-18); CALCIUM 9.1 MG/DL (8.5-10.1); CARBON DIOXIDE 32 MMOL/L (21-32); CHLORIDE 101 MMOL/L (98-107); CREATININE 2.6 MG/DL (0.55-1.30); PHOSPHORUS 2.9 MG/DL (2.5-4.9); POTASSIUM 4.3 MMOL/L (3.5-5.1); SODIUM 139 MMOL/L (136-145)
--- NOTE | 2019-11-13 09:34 | Surgery Progress Note ---
Surgery Progress Note Subjective Procedure Performed removal Right femoral temporary hemodialysis catheter Symptoms: improved, tolerating diet, passing flatus Objective Last 24 Hour Vital Signs Date Time Temp Pulse Resp B/P (MAP) Pulse Ox O2 Delivery O2 Flow Rate FiO2 11/13/19 08:20 Nasal Cannula 2.0 Nasal Cannula 2.0 11/13/19 08:00 2.0 11/13/19 08:00 96.3 20 164/66 (98) 97 11/13/19 07:51 98 Nasal Cannula 2.0 28 11/13/19 05:33 172/62 11/13/19 04:00 83 11/13/19 04:00 2.0 11/13/19 04:00 97.9 92 18 155/60 (91) 96 11/13/19 00:00 85 11/13/19 00:00 2.0 11/13/19 00:00 97.5 88 22 159/57 (91) 98 11/12/19 23:20 164/66 11/12/19 21:00 Nasal Cannula 2.0 11/12/19 20:57 155/88 11/12/19 20:07 97 Nasal Cannula 2.0 28 11/12/19 20:00 88 11/12/19 16:36 187/69 11/12/19 16:00 96.6 85 18 187/69 (108) 99 11/12/19 16:00 2.0 11/12/19 16:00 72 11/12/19 12:00 77 11/12/19 12:00 97.6 69 19 181/61 (101) 100 11/12/19 12:00 2.0 I&O Intake and Output 11/12/19 11/13/19 19:00 07:00 Intake Total 25 ml Output Total 600 ml 250 ml Balance -575 ml -250 ml Tube Feeding 25 ml Output Urine Total 600 ml 250 ml # Voids 3 Dressing: saturated Wound: clean Cardiovascular: RSR Respiratory: decreased breath sounds Abdomen: soft, non-tender, present bowel sounds Extremities: no cyanosis Laboratory Tests Test 11/13/19 05:41 11/13/19 08:15 POC Whole Blood Glucose 165 MG/DL (74-106) H White Blood Count 10.6 K/UL (4.8-10.8) Red Blood Count 3.25 M/UL (4.70-6.10) L Hemoglobin 9.8 G/DL (14.2-18.0) L Hematocrit 32.8 % (42.0-52.0) L Mean Corpuscular Volume 101 FL (80-99) H Mean Corpuscular Hemoglobin 30.1 PG (27.0-31.0) Mean Corpuscular Hemoglobin Concent 29.9 G/DL (32.0-36.0) L Red Cell Distribution Width 16.4 % (11.6-14.8) H Platelet Count 237 K/UL (150-450) Mean Platelet Volume 6.8 FL (6.5-10.1) Neutrophils (%) (Auto) % (45.0-75.0) Lymphocytes (%) (Auto) % (20.0-45.0) Monocytes (%) (Auto) % (1.0-10.0) Eosinophils (%) (Auto) % (0.0-3.0) Basophils (%) (Auto) % (0.0-2.0) Neutrophils % (Manual) Pending Lymphocytes % (Manual) Pending Platelet Estimate Pending Platelet Morphology Pending Sodium Level 139 MMOL/L (136-145) Potassium Level 4.3 MMOL/L (3.5-5.1) Chloride Level 101 MMOL/L (98-107) Carbon Dioxide Level 32 MMOL/L (21-32) Anion Gap 6 mmol/L (5-15) Blood Urea Nitrogen 55 mg/dL (7-18) H Creatinine 2.6 MG/DL (0.55-1.30) H Estimat Glomerular Filtration Rate 23.8 mL/min (>60) Glucose Level 158 MG/DL (74-106) H Calcium Level 9.1 MG/DL (8.5-10.1) Phosphorus Level 2.9 MG/DL (2.5-4.9) Total Bilirubin 0.5 MG/DL (0.2-1.0) Aspartate Amino Transf (AST/SGOT) 23 U/L (15-37) Alanine Aminotransferase (ALT/SGPT) 12 U/L (12-78) Alkaline Phosphatase 108 U/L (46-116) Pro-B-Type Natriuretic Peptide 28537 pg/mL (0-125) H Total Protein 6.3 G/DL (6.4-8.2) L Albumin 2.3 G/DL (3.4-5.0) L Globulin 4.0 g/dL Albumin/Globulin Ratio 0.6 (1.0-2.7) L Plan Problems: (1) Hypercarbia (2) Pleural effusion (3) Chronic renal failure (4) Anemia (5) CHF (congestive heart failure) (6) Bacteremia (7) Cellulitis Assessment & Plan: penile swelling improved no active bleeding reyes okay will monitor (8) Hypoglycemia (9) Hyponatremia (10) ATN (acute tubular necrosis) (11) Metabolic acidosis Assessment & Plan: DYSPHAGIA RISK FACTORS INCLUDE: RESPIRATORY WELL MULTIPLE MEDICAL COMPLICATIONS, SHORTNESS OF BREATH, WORK OF BREATHING, DECREASED MENTATION, HX OF SUBOPTIMAL P.O. INTAKE, LETHARGY (DIFFICULTY SUSTAINING WAKEFULNESS) , CLINICAL HISTORY: AMS CURRENT CXR: Indication: Shortness of breath Technique: One view of the chest Comparison: 10/31/2019 Findings: Interim placement of nasogastric tube, tip projected at the level of the gastric body. This was also demonstrated on 11/01/2019 abdominal radiograph. Bilateral hazy opacity appears similar to or perhaps slightly increased from the prior study. Generalized mild interstitial prominence persists. Impression: Stable slightly increased bilateral pleural effusions Otherwise little change management administrator 3 days INITIAL IMPRESSION: PATIENT POSITIONED AT 90 DEGREES UPRIGHT IN BED AND PRESENTED WITH P.O. TRIALS OF ICE CHIPS, ONE AT A TIME. LINGUAL SIZE PRESENTS ENLARGED. PATIENT PERSISTENTLY MOUTH BREATHING. WHEN PRESENTED WITH ONE ICE CHIP HE MANIPULATED IT, ALLOWED IT TO MELT ON HIS TONGUE AND AFTER A MODERATE DELAY, HE SWALLOWED. RR CHANGES FROM 18 BREATHS PER MINUTE TO 25 BREATHS PER MINUTE ALONG WITH WORK OF BREATHING. WHEN ASKED TO SAY "AH" POST SWALLOW, PATIENTS VOCAL QUALITY WAS WET/GURGLY. HYOLARYNGEAL EXCURSION PRESENTED MODERATELY DECREASED. PATIENT ESSENTIALLY NON/VERBAL THIS AFTERNOON. HIGH ASPIRATION RISK. HIS RISK FOR CONSISTENT/STABLE/SUFFICIENT P.O. INTAKE TO SUPPORT NUTRITION/HYDRATION NEEDS. RECOMMENDATIONS: 1. CONTINUE NON/ORAL FEEDING MANAGEMENT PRIMARY SOURCE OF NUTRITION/ HYDRATION/MEDICATION 2. NPO STATUS 3. RE/ORDER SWALLOW EVALUATION IF/WHEN PATIENTS MEDICAL STATUS STABILIZES. DAILY ESTIMATED NEEDS: Needs based on Critical care, wound 71kg abw 22-28 kcals/kg 4627-5534 total kcals 1.25-2 g protein/kg 88-154 g total protein 25-30 mL/kg 1729-4111 total fluid mLs NUTRITION DIAGNOSIS: 1) Swallowing difficulty r/t respiratory status as evidenced by pt is vent dep via trach, GT dep. 2) Increased kcal/prot needs R/T wound healing as evidenced by pt admitted w/ multiple wounds including full thickness x3, refer to wound care eval for full report. CURRENT TF:NPO ENTERAL NUTRITION RECOMMENDATIONS: Glucerna 1.2 @60ml/hr x24 hrs + Prosource 1pkt QD to provide 1440ml, 1728 kcal, 86g +11g pro, 1159ml free H2o - As medically appropriate, initiate Glucerna 1.2 @ 30ml/hr x 6hrs - Advance 10ml q 4-6 hrs as tolerated to goal rate - Add Prosource 1pkt daily to better meet protein needs - HOB over 30 degrees/ water flush 120ml q 4hrs PARENTERAL NUTRITION RECOMMENDATIONS TPN Comment: Rec TPN to meet est needs with anticipated prolonged NPO status ADDITIONAL RECOMMENDATIONS: 1) Calibrated bedscale wt 2) Rec adding D5 IVF while pt is NPO to prevent hypoglycemia 3) Monitor lytes w/ TF, replete as needed 4) Wound healing: Vit C 250mg BID + SILVESTRE BID w/ TF orders 5) Monitor need for NISS w/ TF: h/o DM 6) Consider TPN w/ anticipated prolonged NPO status (12) Pneumonia (13) Cellulitis of foot Assessment & Plan: Pt presented on admission with Bilat TMA. Pressure injuries both heels. Stable dry necrosis note to Plantar /lateral L TMA. L Heel is boggy with non- Blanchable erythema. . R Heel Boggy with Non-Blanchable erythema.Haemosiderin with Xerosis skin noted to R and L lower ext. Darker skin tone without erythema , induration or fluctuance Medial L Malleolus. Darker skin tone without erythema or induration noted to sacrum. Tx.Plan: Apply Moisture Barrier Paste to Sacrum. Cover with Optifoam drsg.Change every 3 days and prn. Apply Betadine to eschar plantar/lateral L TMA . Cover with Optifoam drsg. Change every 3 days and prn. Apply Cavilon Skin Barrier to both heels and Malleoli. Cover each site with Optifoam drsg. Change every 7days and prn. Reposition at least every 2hours or as tolerated. Off load heels with pillow.Hx prior amputation prior MRI and plain films reviewed wounds stable and local care being provided no abscess noted cont with dressings elevate heels with pillow turn q2h off load pressure air mattress will follow with recs thank you (14) Osteomyelitis (15) History of hypertension (16) Renal failure (ARF), acute on chronic Assessment & Plan: HD line removed 11/09 (17) Acute encephalopathy (18) Diabetes mellitus (19) Hypertension (20) Cholelithiasis Assessment & Plan: US reviewed exam benign asymptomatic cholelithiasis alk phos mild elevated lfts improved trend labs no acute surgical intervention planned Liver: Liver measures 14.8 cm. No intrahepatic bile duct dilation. Gallbladder: Small stone in the gallbladder. No significant gallbladder wall thickening or pericholecystic fluid. Negative sonographic Bianchi's sign. Common bile duct: Normal common bile duct measuring 4.5 mm. No stones. No dilation. Pancreas: Pancreas is not visualized due to overlying bowel gas. Kidneys: Right kidney measures 9.1 cm in length. No hydronephrosis or stone. Left kidney not visualized due to patient's body habitus. Spleen: Spleen measures 9.4 cm. No focal lesion. Aorta: Visualized portions of the aorta are grossly unremarkable. The mid and distal portions are obscured by bowel gas. Inferior vena cava: Unremarkable. Free fluid: No ascites. Tubes, lines and devices: Reyes catheter in a decompressed bladder. IMPRESSION: Small stone in the gallbladder. No significant gallbladder wall thickening or pericholecystic fluid. Negative sonographic Bianchi's sign. Mariusz Diehl Nov 13, 2019 09:34
--- NOTE | 2019-11-13 10:34 | Diagnostic Imaging Report ---
EXAM: XR Abdomen, 2 Views CLINICAL HISTORY: NGT TECHNIQUE: Frontal view of the abdomen/pelvis with upright view of the abdomen. COMPARISON: Abdominal radiograph on 12/22/2018 FINDINGS: Hardware: Nasogastric tube terminates in the region of the stomach. Distal portion of a central venous catheter terminates in the junction of the SVC and right atrium. Abdomen: Nonspecific partially visualized bowel gas pattern. No free air. Bones: Normal. Soft tissues: Normal. Visualized chest: Hazy and interstitial opacities and right greater than left lungs. Atherosclerotic calcifications of the aorta. Borderline size of the cardiac silhouette. IMPRESSION: Nasogastric tube terminates in the region of the stomach.
[2019-11-13] MEDS: Eliquis 2.5mg tablet NG SCH ×2 (10:59→17:05)
[2019-11-13] MEDS: Lisinopril 2.5mg tab GT SCH (10:59)
[2019-11-13] MEDS: Lactulose 10gm/15ml UDC NG SCH ×2 (10:59→17:04)
[2019-11-13] MEDS: Docusate 100mg/10ml Liq NG SCH ×3 (10:59→17:05)
[2019-11-13] MEDS: Renvela 800mg Pkt NG SCH ×3 (11:00→17:05)
[2019-11-13 12:00] VITALS: BP 151/61
--- NOTE | 2019-11-13 13:50 | Nephrology Progress Note ---
Assessment/Plan Problem List: (1) Renal failure (ARF), acute on chronic (2) Metabolic acidosis (3) Electrolyte imbalance Assessment: Hyponatremia and hyperkalemia (4) Anemia (5) CHF (congestive heart failure) Assessment 79-year-old male is admitted for hypoglycemia Patient has renal failure which appears to be acute on chronic Hyperkalemia Hyponatremia CHF, pleural effusion, pneumonia Anemia Metabolic acidosis Hypothyroidism Plan November 12: Lab works are reviewed. Renal parameters stable. Dialysis as needed. Medication list reviewed. November 11: Patient last dialyzed November 09. Patient pulled out the GT tube. Slight bleeding from the site observed. GI to reinsert. Zestril added for BP control. Next hemodialysis tomorrow. November 10: Patient was dialyzed yesterday. Labs reviewed. Stable from renal standpoint of view. November 09: Patient due for dialysis today due to incomplete dialysis yesterday as a result of catheter malfunction. The femoral catheter was already removed this morning. Labs reviewed. Continue current management. November 08: Dialysis attempted through the permacath which was put in yesterday by IR. Due to high catheter pressure , dialysis was held and PTAse administered. Dialysis will be tried again tomorrow. Will check labs tomorrow. November 07: Patient due for tunneled catheter insertion today. Will order dialysis tomorrow. Continue to monitor renal parameters. Labs and medications reviewed. November 06: Patient due for tunnel catheter insertion November 07. Serum creatinine is rising. Labs reviewed. Continue per consultants. October 15: Last dialysis November 03. Eliquis on hold. Due tunneled catheter insertion on November 07. Labs are reviewed. Continue current management. November 04: Dialyzed yesterday. Due for insertion of tunneled catheter today. May need to hold Eliquis and reschedule catheter insertion on Friday. Will monitor renal parameters in the meantime. November 03: Dialyzed this morning. Stable from renal standpoint of view. Due for insertion of tunneled catheter tomorrow. November 02: Dialyzed yesterday. Will DC IV fluid. Dialysis tomorrow. Potassium supplement given. Per orders. November 01: Patient currently being dialyzed. Tolerating well. Labs will be reviewed. Continue per consultants. October 31: Patient was dialyzed yesterday. Clinically doing better. We will continue to monitor renal parameters. Dialysis as needed. October 30: Serum creatinine rising. Patient due to have a temporary dialysis catheter and due for dialysis today. Will continue to follow-up renal parameters. Patient remains full code. October 29: Serum creatinine rising. Serum creatinine 4.5 today. Calculated creatinine clearance is 12. Kidney ultrasound ordered yesterday results were reviewed. Patient appears to have acute renal failure due to underlying sepsis and nephrotoxic medications. Patient requires dialysis treatment. Ordered to obtain consent from the responsible constitution party. Will communicate with PMD and or he is coverage. October 28: Serum creatinine higher to 4.2 today. Blood pressure appears more stable. In view of worsening renal failure, will order stat kidney ultrasound and urine studies. Continue to monitor renal parameters. Patient is full code. Worsening renal parameters may lead to hemodialysis treatment. October 27: Patient pulled out the Lyles catheter. Serum creatinine went up to 3.8. Blood pressure somewhat low. Heart rate in 50s. Will discontinue Coreg. We will continue to monitor renal parameters. October 26: Serum creatinine lower again today. Will abort the dialysis plan. Continue per consultants. Continue to monitor renal parameters. Medication list reviewed. October 25: Clinically improving. Serum creatinine lower. Urine output increased. No dialysis planned at this time. Continue per consultants. October 24: Patient's respiratory status somewhat improved. Serum creatinine down to 3.9. Urinary output somewhat increased. Will hold placement of dialysis catheter at this time. Blood pressure medication adjusted. Continue to monitor renal parameters. Per orders. October 23: Patient remains on BiPAP. More Kayexalate ordered. Will consider hemodialysis to correct fluid overload and hyperkalemia and acidosis. Will discuss with PMD. Meanwhile IV Synthroid started. Discussed with BENJAMIN Aguirre Patient already transfused 1 unit for severe anemia previously Will initiate Epogen 10,000 units subcutaneously 1 dose of IV iron Venofer 200 g IV Kayexalate for hyperkalemia as needed 2D echocardiogram ordered, ejection fraction is reported normal Kidney ultrasound ordered: Kidneys: Right kidney measures 9.1 cm in length. No hydronephrosis or stone. Left kidney not visualized due to patient's body habitus. Avoid nephrotoxic's Monitor renal parameters Will hold insulin and hypoglycemic agents until hypoglycemia is reasonably resolved Subjective ROS Limited/Unobtainable: No Constitutional: Reports: malaise, weakness Objective Objective Last 24 Hour Vital Signs Date Time Temp Pulse Resp B/P (MAP) Pulse Ox O2 Delivery O2 Flow Rate FiO2 11/13/19 12:00 96.9 68 18 151/61 (91) 95 11/13/19 12:00 86 11/13/19 11:00 89 164/66 11/13/19 10:59 164/66 11/13/19 10:59 89 164/66 11/13/19 08:20 Nasal Cannula 2.0 Nasal Cannula 2.0 11/13/19 08:00 2.0 11/13/19 08:00 89 11/13/19 08:00 96.3 20 164/66 (98) 97 11/13/19 07:51 98 Nasal Cannula 2.0 28 11/13/19 05:33 172/62 11/13/19 04:00 83 11/13/19 04:00 2.0 11/13/19 04:00 97.9 92 18 155/60 (91) 96 11/13/19 00:00 85 11/13/19 00:00 2.0 11/13/19 00:00 97.5 88 22 159/57 (91) 98 11/12/19 23:20 164/66 11/12/19 21:00 Nasal Cannula 2.0 11/12/19 20:57 155/88 11/12/19 20:07 97 Nasal Cannula 2.0 28 11/12/19 20:00 88 11/12/19 16:36 187/69 11/12/19 16:00 96.6 85 18 187/69 (108) 99 11/12/19 16:00 2.0 11/12/19 16:00 72 Intake and Output 11/12/19 11/13/19 19:00 07:00 Intake Total 25 ml Output Total 600 ml 250 ml Balance -575 ml -250 ml Tube Feeding 25 ml Output Urine Total 600 ml 250 ml # Voids 3 Current Medications Medications (Trade) Dose Ordered Sig/Cammy Route PRN Reason Start Time Stop Time Status Last Admin Dose Admin Acetaminophen (Tylenol) 650 mg Q6H PRN NG Pain 3-5 11/11/19 00:00 12/02/19 00:00 11/12/19 04:01 Amlodipine Besylate (Norvasc) 10 mg DAILY NG 11/13/19 09:00 11/25/19 08:59 11/13/19 11:00 Apixaban (Eliquis) 2.5 mg BID NG 11/11/19 09:00 02/08/20 17:59 11/13/19 10:59 Atorvastatin Calcium (Lipitor) 10 mg BEDTIME NG 11/11/19 21:00 01/21/20 20:59 11/11/19 21:23 Chlorhexidine Gluconate (Yi-Hex 2%) 1 applic DAILY@2000 TOPIC 11/11/19 20:00 01/31/20 19:59 11/12/19 20:46 Clonidine HCl (Catapres TTS-1) 1 patch QWEEK TDERMAL 11/12/19 19:00 02/10/20 18:59 11/12/19 20:57 Dextrose (Dextrose 50%) 25 ml Q30M PRN IV Hypoglycemia 11/10/19 23:45 01/20/20 21:44 Dextrose (Dextrose 50%) 50 ml Q30M PRN IV Hypoglycemia 11/10/19 23:45 01/20/20 21:44 Docusate Sodium (Colace) 100 mg THREE TIMES A DAY NG 11/11/19 09:00 12/02/19 17:59 11/13/19 13:06 Epoetin William (Epoetin William(ESRD on dialysis)) 10,000 unit FRI-FRI-FRI SUBQ 11/12/19 21:00 02/01/20 20:59 11/12/19 23:19 Haloperidol (Haldol) 5 mg Q12H PRN NG Agitation 11/11/19 00:00 12/26/19 00:00 Haloperidol Lactate (Haldol) 5 mg Q6H PRN IM Agitation 11/11/19 00:00 12/10/19 00:00 Hydralazine HCl (Apresoline) 10 mg Q4H PRN IV For High Blood Pressure 11/11/19 00:00 01/24/20 00:00 11/13/19 05:33 Insulin Aspart (NovoLOG) Q6HR SUBQ 11/11/19 00:00 01/31/20 06:29 11/12/19 06:46 Lactulose (Cephulac) 10 gm BID NG 11/11/19 09:00 12/01/19 08:59 11/13/19 10:59 Lansoprazole (Prevacid) 30 mg DAILY GT 11/11/19 09:00 12/11/19 08:59 11/13/19 10:58 Levothyroxine Sodium (Synthroid) 75 mcg DAILY@0630 NG 11/11/19 06:30 12/04/19 06:29 11/12/19 06:43 Lisinopril (ZestriL) 5 mg DAILY GT 11/12/19 12:30 12/12/19 12:29 11/13/19 10:59 Metoprolol Tartrate (Lopressor) 25 mg Q12HR NG 11/11/19 09:00 02/08/20 20:59 11/13/19 10:59 Polyethylene Glycol (Miralax) 17 gm BEDTIME NG 11/11/19 21:00 12/01/19 20:59 11/11/19 21:23 Sennosides (Senokot) 8.6 mg HSPRN PRN NG Constipation 11/11/19 00:00 12/02/19 00:00 Sevelamer Carbonate (Renvela) 1,600 mg THREE TIMES A DAY NG 11/11/19 09:00 01/21/20 17:59 11/13/19 13:06 Laboratory Tests 11/13/19 05:41: POC Whole Blood Glucose 165H 11/13/19 08:15: White Blood Count 10.6, Red Blood Count 3.25L, Hemoglobin 9.8L, Hematocrit 32.8L , Mean Corpuscular Volume 101H, Mean Corpuscular Hemoglobin 30.1, Mean Corpuscular Hemoglobin Concent 29.9L, Red Cell Distribution Width 16.4H, Platelet Count 237, Mean Platelet Volume 6.8, Neutrophils (%) (Auto) , Lymphocytes (%) (Auto) , Monocytes (%) (Auto) , Eosinophils (%) (Auto) , Basophils (%) (Auto) , Differential Total Cells Counted 100, Neutrophils % ( Manual) 90H, Lymphocytes % (Manual) 7L, Monocytes % (Manual) 2, Eosinophils % ( Manual) 1, Basophils % (Manual) 0, Band Neutrophils 0, Platelet Estimate Adequate, Platelet Morphology Normal, Hypochromasia 1+, Anisocytosis 1+, Macrocytosis 1+, Target Cells Occasional, Stomatocytes Occasional, Sodium Level 139, Potassium Level 4.3, Chloride Level 101, Carbon Dioxide Level 32, Anion Gap 6, Blood Urea Nitrogen 55H, Creatinine 2.6H, Estimat Glomerular Filtration Rate 23.8, Glucose Level 158H, Calcium Level 9.1, Phosphorus Level 2.9, Total Bilirubin 0.5, Aspartate Amino Transf (AST/SGOT) 23, Alanine Aminotransferase ( ALT/SGPT) 12, Alkaline Phosphatase 108, Pro-B-Type Natriuretic Peptide 87480X, Total Protein 6.3L, Albumin 2.3L, Globulin 4.0, Albumin/Globulin Ratio 0.6L 11/13/19 12:08: POC Whole Blood Glucose 148H Height (Feet): 5 Height (Inches): 4.00 Weight (Pounds): 197 General Appearance: no apparent distress EENT: other - NG tube in place Cardiovascular: normal rate Respiratory/Chest: decreased breath sounds Abdomen: distended Objective No change Naveed Vanegas MD Nov 13, 2019 13:50
[2019-11-13 16:00] VITALS: BP 156/57
--- NOTE | 2019-11-13 18:19 | Cardiology Progress Note ---
Assessment/Plan Assessment/Plan 1. Sinus tachycardia, resolved, continue metoprolol. 2. Acute HFpEF with elevated BNP, 2D echocardiography shows normal LV systolic with LVEF of about 55% but e/o increased intracardiac filling pressure. 3. Multiple risk factors for coronary artery disease include diabetes mellitus and hypertension. 4. History of peripheral vascular disease, status post partial foot amputation. 5. Acute on chronic renal failure. 6. Anemia of chronic disease. 7. HTN, will optimize lisinopril. Subjective Subjective Sinus rhythm at rate of 86. Objective Last 24 Hour Vital Signs Date Time Temp Pulse Resp B/P (MAP) Pulse Ox O2 Delivery O2 Flow Rate FiO2 11/13/19 16:00 97.0 86 20 156/57 (90) 95 11/13/19 15:37 165/57 11/13/19 12:00 96.9 68 18 151/61 (91) 95 11/13/19 12:00 86 11/13/19 11:00 89 164/66 11/13/19 10:59 164/66 11/13/19 10:59 89 164/66 11/13/19 08:20 Nasal Cannula 2.0 Nasal Cannula 2.0 11/13/19 08:00 2.0 11/13/19 08:00 89 11/13/19 08:00 96.3 20 164/66 (98) 97 11/13/19 07:51 98 Nasal Cannula 2.0 28 11/13/19 05:33 172/62 11/13/19 04:00 83 11/13/19 04:00 2.0 11/13/19 04:00 97.9 92 18 155/60 (91) 96 11/13/19 00:00 85 11/13/19 00:00 2.0 11/13/19 00:00 97.5 88 22 159/57 (91) 98 11/12/19 23:20 164/66 11/12/19 21:00 Nasal Cannula 2.0 11/12/19 20:57 155/88 11/12/19 20:07 97 Nasal Cannula 2.0 28 11/12/19 20:00 88 Intake and Output 11/12/19 11/13/19 19:00 07:00 Intake Total 25 ml Output Total 600 ml 250 ml Balance -575 ml -250 ml Tube Feeding 25 ml Output Urine Total 600 ml 250 ml # Voids 3 2D Echo: LVEF 55%, Pseudo-normal LV physio grade II LV Diastolic fxn, RVSP 22 , [place] Laboratory Tests Test 11/13/19 05:41 11/13/19 08:15 11/13/19 12:08 11/13/19 17:36 POC Whole Blood Glucose 165 MG/DL (74-106) H 148 MG/DL (74-106) H 157 MG/DL (74-106) H White Blood Count 10.6 K/UL (4.8-10.8) Red Blood Count 3.25 M/UL (4.70-6.10) L Hemoglobin 9.8 G/DL (14.2-18.0) L Hematocrit 32.8 % (42.0-52.0) L Mean Corpuscular Volume 101 FL (80-99) H Mean Corpuscular Hemoglobin 30.1 PG (27.0-31.0) Mean Corpuscular Hemoglobin Concent 29.9 G/DL (32.0-36.0) L Red Cell Distribution Width 16.4 % (11.6-14.8) H Platelet Count 237 K/UL (150-450) Mean Platelet Volume 6.8 FL (6.5-10.1) Neutrophils (%) (Auto) % (45.0-75.0) Lymphocytes (%) (Auto) % (20.0-45.0) Monocytes (%) (Auto) % (1.0-10.0) Eosinophils (%) (Auto) % (0.0-3.0) Basophils (%) (Auto) % (0.0-2.0) Differential Total Cells Counted 100 Neutrophils % (Manual) 90 % (45-75) H Lymphocytes % (Manual) 7 % (20-45) L Monocytes % (Manual) 2 % (1-10) Eosinophils % (Manual) 1 % (0-3) Basophils % (Manual) 0 % (0-2) Band Neutrophils 0 % (0-8) Platelet Estimate Adequate Platelet Morphology Normal Hypochromasia 1+ Anisocytosis 1+ Macrocytosis 1+ Target Cells Occasional Stomatocytes Occasional Sodium Level 139 MMOL/L (136-145) Potassium Level 4.3 MMOL/L (3.5-5.1) Chloride Level 101 MMOL/L (98-107) Carbon Dioxide Level 32 MMOL/L (21-32) Anion Gap 6 mmol/L (5-15) Blood Urea Nitrogen 55 mg/dL (7-18) H Creatinine 2.6 MG/DL (0.55-1.30) H Estimat Glomerular Filtration Rate 23.8 mL/min (>60) Glucose Level 158 MG/DL (74-106) H Calcium Level 9.1 MG/DL (8.5-10.1) Phosphorus Level 2.9 MG/DL (2.5-4.9) Total Bilirubin 0.5 MG/DL (0.2-1.0) Aspartate Amino Transf (AST/SGOT) 23 U/L (15-37) Alanine Aminotransferase (ALT/SGPT) 12 U/L (12-78) Alkaline Phosphatase 108 U/L (46-116) Pro-B-Type Natriuretic Peptide 45185 pg/mL (0-125) H Total Protein 6.3 G/DL (6.4-8.2) L Albumin 2.3 G/DL (3.4-5.0) L Globulin 4.0 g/dL Albumin/Globulin Ratio 0.6 (1.0-2.7) L Objective HEENT: Atraumatic and normocephalic. Anicteric. Pupils are equal, round, and reactive to light and accommodation. Extraocular muscles intact. NECK: JVP less than 5 cm. No carotid bruit. Carotid upstroke is 2+ bilaterally. CARDIOVASCULAR: Normal S1, S2. Regular rate and rhythm. No murmurs, gallops, or rubs. LUNGS: Bilateral rhonchi. ABDOMEN: Soft, nontender, and nondistended. No hepatosplenomegaly. Positive bowel sounds. EXTREMITIES: Bilateral partial foot amputations. Chris Hanley MD Nov 13, 2019 18:19
[2019-11-13 20:00] VITALS: BP 158/79
[2019-11-13] MEDS: Dyna-Hex 2% Top Sol 2oz TOPIC SCH (20:20)
[2019-11-13] MEDS: Miralax 17gm pkt NG SCH (21:24)
[2019-11-13] MEDS: Lisinopril 10mg tab GT SCH (21:25)
[2019-11-14] VITALS: BP 158/63
[2019-11-14] MEDS: NovoLOG Insulin Flexpen SUBQ SCH ×5 (00:21→23:59)
[2019-11-14 04:00] VITALS: BP 155/60
--- NOTE | 2019-11-14 07:56 | Pulmonology Progress Note ---
Reema Hanna SHOT BAGGER 11/14/19 0756: Subjective ROS Limited/Unobtainable: No Allergies: Coded Allergies: PENICILLINS (Verified Allergy, Unknown, 10/25/19) tolerated Ceftriaxone All Systems: reviewed and negative except above Subjective on tele s/p perm HD catheter placement 11/07 s/p PEG 11/08 awake, alert, afebrile on 2l O2 via NC BiPAP at HS but refused BiPAP for thew last few nights no signs of resp distress pulled out G tube, swallow eval pending NGT for now labs still pending for this am Objective Last 24 Hour Vital Signs Date Time Temp Pulse Resp B/P (MAP) Pulse Ox O2 Delivery O2 Flow Rate FiO2 11/14/19 07:37 98 Nasal Cannula 2.0 28 11/14/19 04:00 97.9 86 20 155/60 (91) 99 11/14/19 04:00 86 11/14/19 00:00 85 11/14/19 00:00 97.4 81 20 158/63 (94) 99 11/13/19 21:26 88 158/79 11/13/19 21:25 158/79 11/13/19 21:00 Nasal Cannula 2.0 Nasal Cannula 2.0 11/13/19 21:00 97 Nasal Cannula 2.0 28 11/13/19 20:00 88 11/13/19 20:00 97.4 89 20 158/79 (105) 95 11/13/19 16:00 86 11/13/19 16:00 97.0 86 20 156/57 (90) 95 11/13/19 15:37 165/57 11/13/19 12:00 96.9 68 18 151/61 (91) 95 11/13/19 12:00 86 11/13/19 11:00 89 164/66 11/13/19 10:59 164/66 11/13/19 10:59 89 164/66 11/13/19 08:20 Nasal Cannula 2.0 Nasal Cannula 2.0 11/13/19 08:00 2.0 11/13/19 08:00 89 11/13/19 08:00 96.3 20 164/66 (98) 97 Intake and Output 11/13/19 11/14/19 19:00 07:00 Intake Total 110 ml 30 ml Output Total 300 ml Balance 110 ml -270 ml Free Water 30 ml Tube Feeding 80 ml 30 ml Output Urine Total 300 ml # Voids 2 # Bowel Movements 1 1 Objective General Appearance: no apparent distress, Turkish speaking awake, more alert and responsive male, Lines, tubes and drains: R chest tunneled HD catheter , R femoral temporal HD catheter HEENT: normocephalic, atraumatic, anicteric, mucous membranes moist, O2 2 L via NC, NGT Respiratory/Chest: few scattered crackles, no exp wheezing, Cardiovascular/Chest: normal rate, SR Abdomen: normal bowel sounds, non tender, soft Extremities: partially amputated BL foot/metatarsal Skin Exam: warm/dry Neurologic: abnormal gait, awake, more responsive responsive, Musculoskeletal: atrophy BLE Laboratory Tests 11/13/19 08:15: White Blood Count 10.6, Red Blood Count 3.25L, Hemoglobin 9.8L, Hematocrit 32.8L , Mean Corpuscular Volume 101H, Mean Corpuscular Hemoglobin 30.1, Mean Corpuscular Hemoglobin Concent 29.9L, Red Cell Distribution Width 16.4H, Platelet Count 237, Mean Platelet Volume 6.8, Neutrophils (%) (Auto) , Lymphocytes (%) (Auto) , Monocytes (%) (Auto) , Eosinophils (%) (Auto) , Basophils (%) (Auto) , Differential Total Cells Counted 100, Neutrophils % ( Manual) 90H, Lymphocytes % (Manual) 7L, Monocytes % (Manual) 2, Eosinophils % ( Manual) 1, Basophils % (Manual) 0, Band Neutrophils 0, Platelet Estimate Adequate, Platelet Morphology Normal, Hypochromasia 1+, Anisocytosis 1+, Macrocytosis 1+, Target Cells Occasional, Stomatocytes Occasional, Sodium Level 139, Potassium Level 4.3, Chloride Level 101, Carbon Dioxide Level 32, Anion Gap 6, Blood Urea Nitrogen 55H, Creatinine 2.6H, Estimat Glomerular Filtration Rate 23.8, Glucose Level 158H, Calcium Level 9.1, Phosphorus Level 2.9, Total Bilirubin 0.5, Aspartate Amino Transf (AST/SGOT) 23, Alanine Aminotransferase ( ALT/SGPT) 12, Alkaline Phosphatase 108, Pro-B-Type Natriuretic Peptide 61894E, Total Protein 6.3L, Albumin 2.3L, Globulin 4.0, Albumin/Globulin Ratio 0.6L 11/13/19 12:08: POC Whole Blood Glucose 148H 11/13/19 17:36: POC Whole Blood Glucose 157H 11/13/19 23:42: POC Whole Blood Glucose 157H 11/14/19 06:11: POC Whole Blood Glucose 139H Current Medications Medications (Trade) Dose Ordered Sig/Cammy Route PRN Reason Start Time Stop Time Status Last Admin Dose Admin Acetaminophen (Tylenol) 650 mg Q6H PRN NG Pain 3-5 11/11/19 00:00 12/02/19 00:00 11/12/19 04:01 Amlodipine Besylate (Norvasc) 10 mg DAILY NG 11/13/19 09:00 11/25/19 08:59 11/13/19 11:00 Apixaban (Eliquis) 2.5 mg BID NG 11/11/19 09:00 02/08/20 17:59 11/13/19 17:05 Atorvastatin Calcium (Lipitor) 10 mg BEDTIME NG 11/11/19 21:00 01/21/20 20:59 11/13/19 21:25 Chlorhexidine Gluconate (Yi-Hex 2%) 1 applic DAILY@1999 TOPIC 11/11/19 20:00 01/31/20 19:59 11/13/19 20:20 Clonidine HCl (Catapres TTS-1) 1 patch QWEEK TDERMAL 11/12/19 19:00 02/10/20 18:59 11/12/19 20:57 Dextrose (Dextrose 50%) 25 ml Q30M PRN IV Hypoglycemia 11/10/19 23:45 01/20/20 21:44 Dextrose (Dextrose 50%) 50 ml Q30M PRN IV Hypoglycemia 11/10/19 23:45 01/20/20 21:44 Docusate Sodium (Colace) 100 mg THREE TIMES A DAY NG 11/11/19 09:00 12/02/19 17:59 11/13/19 17:05 Epoetin William (Epoetin William(ESRD on dialysis)) 10,000 unit FRI-FRI-FRI SUBQ 11/12/19 21:00 02/01/20 20:59 11/12/19 23:19 Haloperidol (Haldol) 5 mg Q12H PRN NG Agitation 11/11/19 00:00 12/26/19 00:00 Haloperidol Lactate (Haldol) 5 mg Q6H PRN IM Agitation 11/11/19 00:00 12/10/19 00:00 Hydralazine HCl (Apresoline) 10 mg Q4H PRN IV For High Blood Pressure 11/11/19 00:00 01/24/20 00:00 11/13/19 15:37 Insulin Aspart (NovoLOG) Q6HR SUBQ 11/11/19 00:00 01/31/20 06:29 11/14/19 00:21 Lactulose (Cephulac) 10 gm BID NG 11/11/19 09:00 12/01/19 08:59 11/13/19 17:04 Lansoprazole (Prevacid) 30 mg DAILY GT 11/11/19 09:00 12/11/19 08:59 11/13/19 10:58 Levothyroxine Sodium (Synthroid) 75 mcg DAILY@0630 NG 11/11/19 06:30 12/04/19 06:29 11/14/19 06:12 Lisinopril (ZestriL) 10 mg Q12HR GT 11/13/19 21:00 12/13/19 20:59 11/13/19 21:25 Metoprolol Tartrate (Lopressor) 25 mg Q12HR NG 11/11/19 09:00 02/08/20 20:59 11/13/19 21:26 Polyethylene Glycol (Miralax) 17 gm BEDTIME NG 11/11/19 21:00 12/01/19 20:59 11/13/19 21:24 Sennosides (Senokot) 8.6 mg HSPRN PRN NG Constipation 11/11/19 00:00 12/02/19 00:00 Sevelamer Carbonate (Renvela) 1,600 mg THREE TIMES A DAY NG 11/11/19 09:00 01/21/20 17:59 11/13/19 17:05 Assessment/Plan Assessment/Plan ASSESSMENT Acute hypoxemic hypercapnic respiratory failure requiring BiPAP Acute metabolic encephalopathy likely due to hypoglycemia Diabetes mellitus with initial hypoglycemia Probably pneumonia , s/p Rx Aspiration risk Dysphagia , s/p PEG Acute kidney injury on chronic kidney disease, requiring start of HD 10/30 Severe anemia requiring blood transfusion Metabolic acidosis Electrolyte imbalance :hyponatremia, hyperkalemia HTN with HTN urgency Hematuria 2 to pt pulled off his Lyles catheter Possibly DAYANA PLAN OF CARE tele BiPAP at HS and prn currently on O2 2 L via NC titrate O2, pulm toilet patient likely has DAYANA. recommend sleep study as OP CXR 11/02 -> Stable slightly increased bilateral pleural effusions. Otherwise little warp changer 3 days 10/21 and 10/24 rapid COVID NGT, abx as per ID recs -> Ceftriaxone , completed 10/30 ; s/p Vanco , completed Rx for PNA 7 days, remains afebrile no leucocytosis BCX 10/21 NGTD UCX NGT SCX if able Venous Duplex BLE 10/25 -> NGT CT head revealed bilateral mastoid disease; a new finding ID recommended ENT eval- pending- per primary team remains afebrile, asymptomatic on HD- started 10/30 renal US ->Mildly atrophic kidneys. No hydronephrosis or nephrolithiasis. monitor volumes, renal parameters, lytes, correct as needed fup with nephro recs s/p placement of permanent HD catheter R chest 11/07 s/p removal of temporary HD catheter by surgeon ECHO with pEF 55-60% rate control with BB, now added, HR stable on chronic a/c , was on hold for PEG, resume Eliquis swallow eval with aspiration risk diet texture as per ST recs with strict asp precautions and assistance with meals now NGT repeat BSSE 11/04 -> failed, recommended nonoral feeding started on NGT feeding strict aspiration precautions s/p PEG 11/08 asp precautions, GT site care, monitor tolerance of TF now pulled out GT , needs replacement swallow eval ordered NGT for now GI follows may need another PEG if fails swallow eval AMS 10/[address] head negative, off sedatives ammonia WNL NGT inserted for meds as per nephro recs ( prior to G tube) NEED NEURO EVAL-per primary AMS improved to baseline psych follows HgA1c -6.1 hold oral anti-glycemic SSI prn sensitive initial AMS was most likely due to episode of hypoglycemia CT head NGT for acute ICP -done x 2 BP management with CCB BB and Hydralazine prn for BP spikes monitor HH with goal to keep Hgb above 7 stool OB anemia w/up noted , heme on board s/p 1 dose of Venofer on EPO hematuria resolved, Hgb at baseline GI prophayxlis supportive care WILL NEED TRILOGY VENT TO BE ARRANGED ON DISCHARGE ( pt needs BIPAP at HS and prn ) declined BiPAP for few nights, but was compliant prior, need reenforcement to use BiPAP at HS also at this time feels better and feels that he does not need it, however, pt likely with DAYANA, chronic hypercapnia and not using BiPAP at night will eventually lead to resp distress and worsening hypercapnia case management aware, work in progress case discussed and evaluated by supervising physician Jonathon Pabon MD 11/14/19 1314: Subjective Allergies: Coded Allergies: PENICILLINS (Verified Allergy, Unknown, 10/25/19) tolerated Ceftriaxone Assessment/Plan Assessment/Plan Patient seen and examined with SHOT BAGGER. Agree with above A&P as it reflects our joint deliberations. Reema Hanna SHOT BAGGER Nov 14, 2019 07:56 Jonathon Pabon MD Nov 14, 2019 13:14
[2019-11-14 08:00] VITALS: BP 168/59
[2019-11-14 08:51] LABS: HEMATOCRIT 32.3 % (42.0-52.0); HEMOGLOBIN 9.4 G/DL (14.2-18.0); MEAN CORPUSCULAR VOLUME 101 FL (80-99); PLATELET COUNT 262 K/UL (150-450); RED CELL DISTRIBUTION WIDTH 16.6 % (11.6-14.8); WHITE BLOOD COUNT 8.5 K/UL (4.8-10.8)
[2019-11-14 09:08] LABS: ALANINE AMINOTRANSFERASE 13 U/L (12-78); ALBUMIN 2.2 G/DL (3.4-5.0); ALBUMIN/GLOBULIN RATIO 0.6 (1.0-2.7); ALKALINE PHOSPHATASE 107 U/L (46-116); ANION GAP 3 mmol/L (5-15); ASPARTATE AMINO TRANSFERASE 27 U/L (15-37); BILIRUBIN,TOTAL 0.4 MG/DL (0.2-1.0); BLOOD UREA NITROGEN 60 mg/dL (7-18); CALCIUM 9.3 MG/DL (8.5-10.1); CARBON DIOXIDE 33 MMOL/L (21-32); CHLORIDE 103 MMOL/L (98-107); CREATININE 2.5 MG/DL (0.55-1.30); PHOSPHORUS 2.5 MG/DL (2.5-4.9); POTASSIUM 4.7 MMOL/L (3.5-5.1); SODIUM 139 MMOL/L (136-145)
--- NOTE | 2019-11-14 09:27 | Surgery Progress Note ---
Surgery Progress Note Subjective Procedure Performed removal Right femoral temporary hemodialysis catheter Symptoms: improved, tolerating diet, passing flatus Objective Last 24 Hour Vital Signs Date Time Temp Pulse Resp B/P (MAP) Pulse Ox O2 Delivery O2 Flow Rate FiO2 11/14/19 08:00 97.9 89 20 168/59 (95) 95 11/14/19 07:37 98 Nasal Cannula 2.0 28 11/14/19 04:00 97.9 86 20 155/60 (91) 99 11/14/19 04:00 86 11/14/19 00:00 85 11/14/19 00:00 97.4 81 20 158/63 (94) 99 11/13/19 21:26 88 158/79 11/13/19 21:25 158/79 11/13/19 21:00 Nasal Cannula 2.0 Nasal Cannula 2.0 11/13/19 21:00 97 Nasal Cannula 2.0 28 11/13/19 20:00 88 11/13/19 20:00 97.4 89 20 158/79 (105) 95 11/13/19 16:00 86 11/13/19 16:00 97.0 86 20 156/57 (90) 95 11/13/19 15:37 165/57 11/13/19 12:00 96.9 68 18 151/61 (91) 95 11/13/19 12:00 86 11/13/19 11:00 89 164/66 11/13/19 10:59 164/66 11/13/19 10:59 89 164/66 I&O Intake and Output 11/13/19 11/14/19 19:00 07:00 Intake Total 110 ml 30 ml Output Total 300 ml Balance 110 ml -270 ml Free Water 30 ml Tube Feeding 80 ml 30 ml Output Urine Total 300 ml # Voids 2 # Bowel Movements 1 1 Dressing: other Wound: other Cardiovascular: RSR Respiratory: decreased breath sounds Abdomen: soft, non-tender, present bowel sounds Extremities: no tenderness, no cyanosis Laboratory Tests Test 11/13/19 12:08 11/13/19 17:36 11/13/19 23:42 11/14/19 06:11 POC Whole Blood Glucose 148 MG/DL (74-106) H 157 MG/DL (74-106) H 157 MG/DL (74-106) H 139 MG/DL (74-106) H Test 11/14/19 06:50 White Blood Count 8.5 K/UL (4.8-10.8) Red Blood Count 3.20 M/UL (4.70-6.10) L Hemoglobin 9.4 G/DL (14.2-18.0) L Hematocrit 32.3 % (42.0-52.0) L Mean Corpuscular Volume 101 FL (80-99) H Mean Corpuscular Hemoglobin 29.5 PG (27.0-31.0) Mean Corpuscular Hemoglobin Concent 29.2 G/DL (32.0-36.0) L Red Cell Distribution Width 16.6 % (11.6-14.8) H Platelet Count 262 K/UL (150-450) Mean Platelet Volume 6.6 FL (6.5-10.1) Neutrophils (%) (Auto) % (45.0-75.0) Lymphocytes (%) (Auto) % (20.0-45.0) Monocytes (%) (Auto) % (1.0-10.0) Eosinophils (%) (Auto) % (0.0-3.0) Basophils (%) (Auto) % (0.0-2.0) Neutrophils % (Manual) Pending Lymphocytes % (Manual) Pending Platelet Estimate Pending Platelet Morphology Pending Sodium Level 139 MMOL/L (136-145) Potassium Level 4.7 MMOL/L (3.5-5.1) Chloride Level 103 MMOL/L (98-107) Carbon Dioxide Level 33 MMOL/L (21-32) H Anion Gap 3 mmol/L (5-15) L Blood Urea Nitrogen 60 mg/dL (7-18) H Creatinine 2.5 MG/DL (0.55-1.30) H Estimat Glomerular Filtration Rate 24.9 mL/min (>60) Glucose Level 140 MG/DL (74-106) H Calcium Level 9.3 MG/DL (8.5-10.1) Phosphorus Level 2.5 MG/DL (2.5-4.9) Magnesium Level 2.6 MG/DL (1.8-2.4) H Total Bilirubin 0.4 MG/DL (0.2-1.0) Aspartate Amino Transf (AST/SGOT) 27 U/L (15-37) Alanine Aminotransferase (ALT/SGPT) 13 U/L (12-78) Alkaline Phosphatase 107 U/L (46-116) Total Protein 6.2 G/DL (6.4-8.2) L Albumin 2.2 G/DL (3.4-5.0) L Globulin 4.0 g/dL Albumin/Globulin Ratio 0.6 (1.0-2.7) L Plan Problems: (1) Hypercarbia (2) Pleural effusion (3) Chronic renal failure (4) Anemia (5) CHF (congestive heart failure) (6) Bacteremia (7) Cellulitis Assessment & Plan: improving no active bleeding eric ley will monitor (8) Hypoglycemia (9) Hyponatremia (10) ATN (acute tubular necrosis) (11) Metabolic acidosis Assessment & Plan: DYSPHAGIA RISK FACTORS INCLUDE: RESPIRATORY WELL MULTIPLE MEDICAL COMPLICATIONS, SHORTNESS OF BREATH, WORK OF BREATHING, DECREASED MENTATION, HX OF SUBOPTIMAL P.O. INTAKE, LETHARGY (DIFFICULTY SUSTAINING WAKEFULNESS) , CLINICAL HISTORY: AMS CURRENT CXR: Indication: Shortness of breath Technique: One view of the chest Comparison: 10/31/2019 Findings: Interim placement of nasogastric tube, tip projected at the level of the gastric body. This was also demonstrated on 11/01/2019 abdominal radiograph. Bilateral hazy opacity appears similar to or perhaps slightly increased from the prior study. Generalized mild interstitial prominence persists. 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 TRIALS OF ICE CHIPS, ONE AT A TIME. LINGUAL SIZE PRESENTS ENLARGED. PATIENT PERSISTENTLY MOUTH BREATHING. WHEN PRESENTED WITH ONE ICE CHIP HE MANIPULATED IT, ALLOWED IT TO MELT ON HIS TONGUE AND AFTER A MODERATE DELAY, HE SWALLOWED. RR CHANGES FROM 18 BREATHS PER MINUTE TO 25 BREATHS PER MINUTE ALONG WITH WORK OF BREATHING. WHEN ASKED TO SAY "AH" POST SWALLOW, PATIENTS VOCAL QUALITY WAS WET/GURGLY. HYOLARYNGEAL EXCURSION PRESENTED MODERATELY DECREASED. PATIENT ESSENTIALLY NON/VERBAL THIS AFTERNOON. HIGH ASPIRATION RISK. HIS RISK FOR CONSISTENT/STABLE/SUFFICIENT P.O. INTAKE TO SUPPORT NUTRITION/HYDRATION NEEDS. RECOMMENDATIONS: 1. CONTINUE NON/ORAL FEEDING MANAGEMENT PRIMARY SOURCE OF NUTRITION/ HYDRATION/MEDICATION 2. NPO STATUS 3. RE/ORDER SWALLOW EVALUATION IF/WHEN PATIENTS MEDICAL STATUS STABILIZES. DAILY ESTIMATED NEEDS: Needs based on Critical care, wound 71kg abw 22-28 kcals/kg 6618-6879 total kcals 1.25-2 g protein/kg 88-154 g total protein 25-30 mL/kg 3385-4029 total fluid mLs NUTRITION DIAGNOSIS: 1) Swallowing difficulty r/t respiratory status as evidenced by pt is vent dep via trach, GT dep. 2) Increased kcal/prot needs R/T wound healing as evidenced by pt admitted w/ multiple wounds including full thickness x3, refer to wound care eval for full report. CURRENT TF:NPO ENTERAL NUTRITION RECOMMENDATIONS: Glucerna 1.2 @60ml/hr x24 hrs + Prosource 1pkt QD to provide 1440ml, 1728 kcal, 86g +11g pro, 1159ml free H2o - As medically appropriate, initiate Glucerna 1.2 @ 30ml/hr x 6hrs - Advance 10ml q 4-6 hrs as tolerated to goal rate - Add Prosource 1pkt daily to better meet protein needs - HOB over 30 degrees/ water flush 120ml q 4hrs PARENTERAL NUTRITION RECOMMENDATIONS TPN Comment: Rec TPN to meet est needs with anticipated prolonged NPO status ADDITIONAL RECOMMENDATIONS: 1) Calibrated bedscale wt 2) Rec adding D5 IVF while pt is NPO to prevent hypoglycemia 3) Monitor lytes w/ TF, replete as needed 4) Wound healing: Vit C 250mg BID + SILVESTRE BID w/ TF orders 5) Monitor need for NISS w/ TF: h/o DM 6) Consider TPN w/ anticipated prolonged NPO status Hardware: Nasogastric tube terminates in the region of the stomach. Distal portion of a central venous catheter terminates in the junction of the SVC and right atrium. Abdomen: Nonspecific partially visualized bowel gas pattern. No free air. Bones: Normal. Soft tissues: Normal. Visualized chest: Hazy and interstitial opacities and right greater than left lungs. Atherosclerotic calcifications of the aorta. Borderline size of the cardiac silhouette. IMPRESSION: Nasogastric tube terminates in the region of the stomach. (12) Pneumonia (13) Cellulitis of foot Assessment & Plan: Pt presented on admission with Bilat TMA. Pressure injuries both heels. Stable dry necrosis note to Plantar /lateral L TMA. L Heel is boggy with non- Blanchable erythema. . R Heel Boggy with Non-Blanchable erythema.Haemosiderin with Xerosis skin noted to R and L lower ext. Darker skin tone without erythema , induration or fluctuance Medial L Malleolus. Darker skin tone without erythema or induration noted to sacrum. Tx.Plan: Apply Moisture Barrier Paste to Sacrum. Cover with Optifoam drsg.Change every 3 days and prn. Apply Betadine to eschar plantar/lateral L TMA . Cover with Optifoam drsg. Change every 3 days and prn. Apply Cavilon Skin Barrier to both heels and Malleoli. Cover each site with Optifoam drsg. Change every 7days and prn. Reposition at least every 2hours or as tolerated. Off load heels with pillow.Hx prior amputation prior MRI and plain films reviewed wounds stable and local care being provided no abscess noted cont with dressings elevate heels with pillow turn q2h off load pressure air mattress will follow with recs thank you (14) Osteomyelitis (15) History of hypertension (16) Renal failure (ARF), acute on chronic Assessment & Plan: HD line removed 11/09 (17) Acute encephalopathy (18) Diabetes mellitus (19) Hypertension (20) Cholelithiasis Assessment & Plan: US reviewed exam benign asymptomatic cholelithiasis alk phos mild elevated lfts improved trend labs no acute surgical intervention planned Liver: Liver measures 14.8 cm. No intrahepatic bile duct dilation. Gallbladder: Small stone in the gallbladder. No significant gallbladder wall thickening or pericholecystic fluid. Negative sonographic Bianchi's sign. Common bile duct: Normal common bile duct measuring 4.5 mm. No stones. No dilation. Pancreas: Pancreas is not visualized due to overlying bowel gas. Kidneys: Right kidney measures 9.1 cm in length. No hydronephrosis or stone. Left kidney not visualized due to patient's body habitus. Spleen: Spleen measures 9.4 cm. No focal lesion. Aorta: Visualized portions of the aorta are grossly unremarkable. The mid and distal portions are obscured by bowel gas. Inferior vena cava: Unremarkable. Free fluid: No ascites. Tubes, lines and devices: Lyles catheter in a decompressed bladder. IMPRESSION: Small stone in the gallbladder. No significant gallbladder wall thickening or pericholecystic fluid. Negative sonographic Bianchi's sign. Mariusz Diehl Nov 14, 2019 09:27
--- NOTE | 2019-11-14 09:34 | General Progress Note ---
Assessment/Plan Problem List: (1) Hypertension ICD Codes: I10 - Essential (primary) hypertension SNOMED: 82655299 (2) Diabetes mellitus ICD Codes: E11.9 - Type 2 diabetes mellitus without complications SNOMED: 12482217 (3) Anemia ICD Codes: D64.9 - Anemia, unspecified SNOMED: 339119430 (4) Cholelithiasis ICD Codes: K80.20 - Calculus of gallbladder without cholecystitis without obstruction SNOMED: 531253852 (5) CHF (congestive heart failure) ICD Codes: I50.9 - Heart failure, unspecified SNOMED: 96157954 Assessment/Plan: HD per nephrology patient pulled the GT out ordered repeat swallow eval>>pending NGTF for now may need another peg Subjective ROS Limited/Unobtainable: No Allergies: Coded Allergies: PENICILLINS (Verified Allergy, Unknown, 10/25/19) tolerated Ceftriaxone Objective Last 24 Hour Vital Signs Date Time Temp Pulse Resp B/P (MAP) Pulse Ox O2 Delivery O2 Flow Rate FiO2 11/14/19 08:00 97.9 89 20 168/59 (95) 95 11/14/19 07:37 98 Nasal Cannula 2.0 28 11/14/19 04:00 97.9 86 20 155/60 (91) 99 11/14/19 04:00 86 11/14/19 00:00 85 11/14/19 00:00 97.4 81 20 158/63 (94) 99 11/13/19 21:26 88 158/79 11/13/19 21:25 158/79 11/13/19 21:00 Nasal Cannula 2.0 Nasal Cannula 2.0 11/13/19 21:00 97 Nasal Cannula 2.0 28 11/13/19 20:00 88 11/13/19 20:00 97.4 89 20 158/79 (105) 95 11/13/19 16:00 86 11/13/19 16:00 97.0 86 20 156/57 (90) 95 11/13/19 15:37 165/57 11/13/19 12:00 96.9 68 18 151/61 (91) 95 11/13/19 12:00 86 11/13/19 11:00 89 164/66 11/13/19 10:59 164/66 11/13/19 10:59 89 164/66 Intake and Output 11/13/19 11/14/19 19:00 07:00 Intake Total 110 ml 30 ml Output Total 300 ml Balance 110 ml -270 ml Free Water 30 ml Tube Feeding 80 ml 30 ml Output Urine Total 300 ml # Voids 2 # Bowel Movements 1 1 Laboratory Tests 11/13/19 12:08: POC Whole Blood Glucose 148H 11/13/19 17:36: POC Whole Blood Glucose 157H 11/13/19 23:42: POC Whole Blood Glucose 157H 11/14/19 06:11: POC Whole Blood Glucose 139H 11/14/19 06:50: White Blood Count 8.5, Red Blood Count 3.20L, Hemoglobin 9.4L, Hematocrit 32.3L , Mean Corpuscular Volume 101H, Mean Corpuscular Hemoglobin 29.5, Mean Corpuscular Hemoglobin Concent 29.2L, Red Cell Distribution Width 16.6H, Platelet Count 262, Mean Platelet Volume 6.6, Neutrophils (%) (Auto) , Lymphocytes (%) (Auto) , Monocytes (%) (Auto) , Eosinophils (%) (Auto) , Basophils (%) (Auto) , Neutrophils % (Manual) [Pending], Lymphocytes % (Manual) [Pending], Platelet Estimate [Pending], Platelet Morphology [Pending], Sodium Level 139, Potassium Level 4.7, Chloride Level 103, Carbon Dioxide Level 33H, Anion Gap 3L, Blood Urea Nitrogen 60H, Creatinine 2.5H, Estimat Glomerular Filtration Rate 24.9, Glucose Level 140H, Calcium Level 9.3, Phosphorus Level 2.5, Magnesium Level 2.6H, Total Bilirubin 0.4, Aspartate Amino Transf (AST/SGOT ) 27, Alanine Aminotransferase (ALT/SGPT) 13, Alkaline Phosphatase 107, Total Protein 6.2L, Albumin 2.2L, Globulin 4.0, Albumin/Globulin Ratio 0.6L Height (Feet): 5 Height (Inches): 4.00 Weight (Pounds): 196 General Appearance: lethargic EENT: normal ENT inspection Neck: supple Cardiovascular: normal rate Respiratory/Chest: decreased breath sounds Abdomen: normal bowel sounds, non tender, soft Extremities: non-tender Lawrence Humphreys MD Nov 14, 2019 09:33
[2019-11-14] MEDS: Renvela 800mg Pkt NG SCH (09:41)
[2019-11-14] MEDS: Lactulose 10gm/15ml UDC NG SCH ×2 (09:41→17:49)
[2019-11-14] MEDS: Docusate 100mg/10ml Liq NG SCH ×3 (09:41→17:49)
[2019-11-14] MEDS: Eliquis 2.5mg tablet NG SCH ×2 (09:42→17:49)
[2019-11-14] MEDS: Lisinopril 10mg tab GT SCH (09:42)
--- NOTE | 2019-11-14 09:52 | Diagnostic Imaging Report ---
EXAM: XR Abdomen, 1 View CLINICAL HISTORY: NGT TECHNIQUE: Frontal supine view of the abdomen/pelvis. COMPARISON: November 13, 2019.. FINDINGS: The enteric tube is in the proximal stomach, just distal to the GE junction. Nonspecific gaseous distention of segments of bowel. Patchy infiltrates in lower lungs. Surgical clips in pelvis. IMPRESSION: Enteric tube tip is in the proximal stomach. Recommend advancement by at least 10 cm and reimaging to confirm location. <MYCVCSECTION> Communications: 11/14/19 09:54 Call Nurse Called BENJAMIN Thomson on 11/13 09:53 (-07:00)
--- NOTE | 2019-11-14 10:20 | Infectious Diseases Prog Note ---
Assessment/Plan 79yo M from SNF who p/w hypoglycemia and resp failure: Acute hypoxic respiratory failure, on BiPAP > 2L NC> RA > 2L NC Rapid COVID neg x2 (10/21, 10/24) Pneumonia on CXR Volume overload 10/30 CXR: Slightly improved 10/25 CXR: Bilateral alveolar densities are unchanged 10/24 Sp cx normal resp demario (prelim) 10/23 CXR: 1. Small layering right pleural effusion, not significantly changed. The previously noted small left pleural effusion is not as evident.Prominent lung markings and haziness, right greater left, which may be related to pulmonary vascular congestion versus pneumonitis. This is not significantly changed.. Subsegmental atelectasis versus infiltrate in the medial left lung base, also not significantly changed. 10/21 CXR: 1. Small bilateral pleural effusions. Bibasilar atelectasis versus pneumonia. 2. Prominent lung markings and hazy opacities in right greater than left lungs may represent artifact versus pulmonary vasculature congestion and edema versus infectious/inflammatory process. 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 10/31 No clear clinical correlate to this imaging finding, s/p 7 days of CTX which is good abx for mastoiditis Hypercapnia, on BiPAP, improving Afebrile No leukocytosis Anemia to 6.8, improved UA neg, UCx neg R/o bacteremia 10/21 BCx NTD ALEXIS on CKD, worsening --> now on HD HBsAg neg Plan: Cont to monitor off abx, s/p 7d of abx for pna, but this also covered for possible mastoiditis ENT to evaluate ears/TMs for signs of underlying mastoiditis, as seen on CT head ; would appreciate the evaluation as pt unable to tell us if he has ear pain/DE LEON , etc; if unable to obtain in house, OK for pt to have outpt ENT f/u for evaluation given that pt has remained AF wo s/sx of ear infection here, and there is no pain on ear exam here (though unable to fully evaluate the inner ears) 11/07 Clindamycin x1 for catheter placement 10/31 SP CTX #7 10/26 SP vancomycin IV #5 Trend resp status Monitor CBC, CMP Thank you for this consult. [facility] will continue to follow. Subjective Constitutional: Denies: no symptoms, fever, chills, fatigue, anorexia, drenching sweats, other Allergies: Coded Allergies: PENICILLINS (Verified Allergy, Unknown, 10/25/19) tolerated Ceftriaxone Objective Last 24 Hour Vital Signs Date Time Temp Pulse Resp B/P (MAP) Pulse Ox O2 Delivery O2 Flow Rate FiO2 11/14/19 09:42 168/59 11/14/19 09:42 89 168/59 11/14/19 09:42 89 168/59 11/14/19 08:00 97.9 89 20 168/59 (95) 95 11/14/19 07:37 98 Nasal Cannula 2.0 28 11/14/19 04:00 97.9 86 20 155/60 (91) 99 11/14/19 04:00 86 11/14/19 00:00 85 11/14/19 00:00 97.4 81 20 158/63 (94) 99 11/13/19 21:26 88 158/79 11/13/19 21:25 158/79 11/13/19 21:00 Nasal Cannula 2.0 Nasal Cannula 2.0 11/13/19 21:00 97 Nasal Cannula 2.0 28 11/13/19 20:00 88 11/13/19 20:00 97.4 89 20 158/79 (105) 95 11/13/19 16:00 86 11/13/19 16:00 97.0 86 20 156/57 (90) 95 11/13/19 15:37 165/57 11/13/19 12:00 96.9 68 18 151/61 (91) 95 11/13/19 12:00 86 11/13/19 11:00 89 164/66 11/13/19 10:59 164/66 11/13/19 10:59 89 164/66 Height (Feet): 5 Height (Inches): 4.00 Weight (Pounds): 196 HEENT: atraumatic Respiratory/Chest: lungs clear Cardiovascular: normal rate Laboratory Tests Test 11/13/19 12:08 11/13/19 17:36 11/13/19 23:42 11/14/19 06:11 POC Whole Blood Glucose 148 MG/DL (74-106) H 157 MG/DL (74-106) H 157 MG/DL (74-106) H 139 MG/DL (74-106) H Test 11/14/19 06:50 White Blood Count 8.5 K/UL (4.8-10.8) Red Blood Count 3.20 M/UL (4.70-6.10) L Hemoglobin 9.4 G/DL (14.2-18.0) L Hematocrit 32.3 % (42.0-52.0) L Mean Corpuscular Volume 101 FL (80-99) H Mean Corpuscular Hemoglobin 29.5 PG (27.0-31.0) Mean Corpuscular Hemoglobin Concent 29.2 G/DL (32.0-36.0) L Red Cell Distribution Width 16.6 % (11.6-14.8) H Platelet Count 262 K/UL (150-450) Mean Platelet Volume 6.6 FL (6.5-10.1) Neutrophils (%) (Auto) % (45.0-75.0) Lymphocytes (%) (Auto) % (20.0-45.0) Monocytes (%) (Auto) % (1.0-10.0) Eosinophils (%) (Auto) % (0.0-3.0) Basophils (%) (Auto) % (0.0-2.0) Neutrophils % (Manual) Pending Lymphocytes % (Manual) Pending Platelet Estimate Pending Platelet Morphology Pending Sodium Level 139 MMOL/L (136-145) Potassium Level 4.7 MMOL/L (3.5-5.1) Chloride Level 103 MMOL/L (98-107) Carbon Dioxide Level 33 MMOL/L (21-32) H Anion Gap 3 mmol/L (5-15) L Blood Urea Nitrogen 60 mg/dL (7-18) H Creatinine 2.5 MG/DL (0.55-1.30) H Estimat Glomerular Filtration Rate 24.9 mL/min (>60) Glucose Level 140 MG/DL (74-106) H Calcium Level 9.3 MG/DL (8.5-10.1) Phosphorus Level 2.5 MG/DL (2.5-4.9) Magnesium Level 2.6 MG/DL (1.8-2.4) H Total Bilirubin 0.4 MG/DL (0.2-1.0) Aspartate Amino Transf (AST/SGOT) 27 U/L (15-37) Alanine Aminotransferase (ALT/SGPT) 13 U/L (12-78) Alkaline Phosphatase 107 U/L (46-116) Total Protein 6.2 G/DL (6.4-8.2) L Albumin 2.2 G/DL (3.4-5.0) L Globulin 4.0 g/dL Albumin/Globulin Ratio 0.6 (1.0-2.7) L Current Medications Medications (Trade) Dose Ordered Sig/Cammy Route PRN Reason Start Time Stop Time Status Last Admin Dose Admin Acetaminophen (Tylenol) 650 mg Q6H PRN NG Pain 3-5 11/14/19 12:00 12/02/19 00:00 UNV Amlodipine Besylate (Norvasc) 10 mg DAILY NG 11/15/19 09:00 11/25/19 08:59 UNV Apixaban (Eliquis) 2.5 mg BID NG 11/14/19 18:00 02/08/20 17:59 UNV Atorvastatin Calcium (Lipitor) 10 mg BEDTIME NG 11/14/19 21:00 01/21/20 20:59 UNV Chlorhexidine Gluconate (Yi-Hex 2%) 1 applic DAILY@1999 TOPIC 11/14/19 20:00 01/31/20 19:59 UNV Clonidine HCl (Catapres TTS-1) 1 patch QWEEK TDERMAL 11/19/19 19:00 02/10/20 18:59 UNV Dextrose (Dextrose 50%) 25 ml Q30M PRN IV Hypoglycemia 11/14/19 10:45 01/20/20 21:44 UNV Dextrose (Dextrose 50%) 50 ml Q30M PRN IV Hypoglycemia 11/14/19 10:45 01/20/20 21:44 UNV Docusate Sodium (Colace) 100 mg THREE TIMES A DAY NG 11/14/19 13:00 12/02/19 17:59 UNV Epoetin William (Epoetin William(ESRD on dialysis)) 10,000 unit FRI-FRI-FRI SUBQ 11/15/19 21:00 02/01/20 20:59 UNV Haloperidol (Haldol) 5 mg Q12H PRN NG Agitation 11/14/19 12:00 12/26/19 00:00 UNV Haloperidol Lactate (Haldol) 5 mg Q6H PRN IM Agitation 11/14/19 12:00 12/10/19 00:00 UNV Hydralazine HCl (Apresoline) 10 mg Q4H PRN IV For High Blood Pressure 11/14/19 12:00 01/24/20 00:00 UNV Insulin Aspart (NovoLOG) Q6HR SUBQ 11/14/19 12:00 01/31/20 06:29 UNV Lactulose (Cephulac) 10 gm BID NG 11/14/19 18:00 12/01/19 08:59 UNV Lansoprazole (Prevacid) 30 mg DAILY GT 11/15/19 09:00 12/11/19 08:59 UNV Levothyroxine Sodium (Synthroid) 75 mcg DAILY@0630 NG 11/15/19 06:30 12/04/19 06:29 UNV Lisinopril (ZestriL) 10 mg Q12HR GT 11/14/19 21:00 12/13/19 20:59 UNV Metoprolol Tartrate (Lopressor) 25 mg Q12HR NG 11/14/19 21:00 02/08/20 20:59 UNV Polyethylene Glycol (Miralax) 17 gm BEDTIME NG 11/14/19 21:00 12/01/19 20:59 UNV Sennosides (Senokot) 8.6 mg HSPRN PRN NG Constipation 11/15/19 00:00 12/02/19 00:00 UNV Sevelamer Carbonate (Renvela) 1,600 mg THREE TIMES A DAY NG 11/14/19 13:00 01/21/20 17:59 UNV Casa Martin MD Nov 14, 2019 10:20
--- NOTE | 2019-11-14 10:58 | Nephrology Progress Note ---
Assessment/Plan Problem List: (1) Renal failure (ARF), acute on chronic (2) Metabolic acidosis (3) Electrolyte imbalance Assessment: Hyponatremia and hyperkalemia (4) Anemia (5) CHF (congestive heart failure) Assessment 79-year-old male is admitted for hypoglycemia Patient has renal failure which appears to be acute on chronic Hyperkalemia Hyponatremia CHF, pleural effusion, pneumonia Anemia Metabolic acidosis Hypothyroidism Plan November 13: Labs reviewed. Serum creatinine is leveling off. No dialysis needed at this time. Patient has NG tube. Due for swallowing study. We will continue to monitor renal parameters. He may not need any further dialysis treatment as the acute renal failure appears to have been resolved. Will adjust blood pressure medication. Continue per orders. November 12: Lab works are reviewed. Renal parameters stable. Dialysis as needed. Medication list reviewed. November 11: Patient last dialyzed November 09. Patient pulled out the GT tube. Slight bleeding from the site observed. GI to reinsert. Zestril added for BP control. Next hemodialysis tomorrow. November 10: Patient was dialyzed yesterday. Labs reviewed. Stable from renal standpoint of view. November 09: Patient due for dialysis today due to incomplete dialysis yesterday as a result of catheter malfunction. The femoral catheter was already removed this morning. Labs reviewed. Continue current management. November 08: Dialysis attempted through the permacath which was put in yesterday by IR. Due to high catheter pressure , dialysis was held and PTAse administered. Dialysis will be tried again tomorrow. Will check labs tomorrow. November 07: Patient due for tunneled catheter insertion today. Will order dialysis tomorrow. Continue to monitor renal parameters. Labs and medications reviewed. November 06: Patient due for tunnel catheter insertion November 07. Serum creatinine is rising. Labs reviewed. Continue per consultants. November 05: Last dialysis November 03. Eliquis on hold. Due tunneled catheter insertion on November 07. Labs are reviewed. Continue current management. November 04: Dialyzed yesterday. Due for insertion of tunneled catheter today. May need to hold Eliquis and reschedule catheter insertion on Friday. Will monitor renal parameters in the meantime. November 03: Dialyzed this morning. Stable from renal standpoint of view. Due for insertion of tunneled catheter tomorrow. November 02: Dialyzed yesterday. Will DC IV fluid. Dialysis tomorrow. Potassium supplement given. Per orders. November 01: Patient currently being dialyzed. Tolerating well. Labs will be reviewed. Continue per consultants. October 31: Patient was dialyzed yesterday. Clinically doing better. We will continue to monitor renal parameters. Dialysis as needed. October 30: Serum creatinine rising. Patient due to have a temporary dialysis catheter and due for dialysis today. Will continue to follow-up renal parameters. Patient remains full code. October 29: Serum creatinine rising. Serum creatinine 4.5 today. Calculated creatinine clearance is 12. Kidney ultrasound ordered yesterday results were reviewed. Patient appears to have acute renal failure due to underlying sepsis and nephrotoxic medications. Patient requires dialysis treatment. Ordered to obtain consent from the responsible green party. Will communicate with PMD and or he is coverage. October 28: Serum creatinine higher to 4.2 today. Blood pressure appears more stable. In view of worsening renal failure, will order stat kidney ultrasound and urine studies. Continue to monitor renal parameters. Patient is full code. Worsening renal parameters may lead to hemodialysis treatment. October 27: Patient pulled out the Lyles catheter. Serum creatinine went up to 3.8. Blood pressure somewhat low. Heart rate in 50s. Will discontinue Coreg. We will continue to monitor renal parameters. October 26: Serum creatinine lower again today. Will abort the dialysis plan. Continue per consultants. Continue to monitor renal parameters. Medication list reviewed. October 25: Clinically improving. Serum creatinine lower. Urine output increased. No dialysis planned at this time. Continue per consultants. October 24: Patient's respiratory status somewhat improved. Serum creatinine down to 3.9. Urinary output somewhat increased. Will hold placement of dialysis catheter at this time. Blood pressure medication adjusted. Continue to monitor renal parameters. Per orders. October 23: Patient remains on BiPAP. More Kayexalate ordered. Will consider hemodialysis to correct fluid overload and hyperkalemia and acidosis. Will discuss with PMD. Meanwhile IV Synthroid started. Discussed with BENJAMIN Aguirre Patient already transfused 1 unit for severe anemia previously Will initiate Epogen 10,000 units subcutaneously 1 dose of IV iron Venofer 200 g IV Kayexalate for hyperkalemia as needed 2D echocardiogram ordered, ejection fraction is reported normal Kidney ultrasound ordered: Kidneys: Right kidney measures 9.1 cm in length. No hydronephrosis or stone. Left kidney not visualized due to patient's body habitus. Avoid nephrotoxic's Monitor renal parameters Will hold insulin and hypoglycemic agents until hypoglycemia is reasonably resolved Subjective ROS Limited/Unobtainable: No Constitutional: Reports: malaise Objective Objective Last 24 Hour Vital Signs Date Time Temp Pulse Resp B/P (MAP) Pulse Ox O2 Delivery O2 Flow Rate FiO2 11/14/19 09:42 168/59 11/14/19 09:42 89 168/59 11/14/19 09:42 89 168/59 11/14/19 08:00 97.9 89 20 168/59 (95) 95 11/14/19 07:37 98 Nasal Cannula 2.0 28 11/14/19 04:00 97.9 86 20 155/60 (91) 99 11/14/19 04:00 86 11/14/19 00:00 85 11/14/19 00:00 97.4 81 20 158/63 (94) 99 11/13/19 21:26 88 158/79 11/13/19 21:25 158/79 11/13/19 21:00 Nasal Cannula 2.0 Nasal Cannula 2.0 11/13/19 21:00 97 Nasal Cannula 2.0 28 11/13/19 20:00 88 11/13/19 20:00 97.4 89 20 158/79 (105) 95 11/13/19 16:00 86 11/13/19 16:00 97.0 86 20 156/57 (90) 95 11/13/19 15:37 165/57 11/13/19 12:00 96.9 68 18 151/61 (91) 95 11/13/19 12:00 86 11/13/19 11:00 89 164/66 11/13/19 10:59 164/66 11/13/19 10:59 89 164/66 Intake and Output 11/13/19 11/14/19 19:00 07:00 Intake Total 110 ml 30 ml Output Total 300 ml Balance 110 ml -270 ml Free Water 30 ml Tube Feeding 80 ml 30 ml Output Urine Total 300 ml # Voids 2 # Bowel Movements 1 1 Laboratory Tests 11/13/19 12:08: POC Whole Blood Glucose 148H 11/13/19 17:36: POC Whole Blood Glucose 157H 11/13/19 23:42: POC Whole Blood Glucose 157H 11/14/19 06:11: POC Whole Blood Glucose 139H 11/14/19 06:50: White Blood Count 8.5, Red Blood Count 3.20L, Hemoglobin 9.4L, Hematocrit 32.3L , Mean Corpuscular Volume 101H, Mean Corpuscular Hemoglobin 29.5, Mean Corpuscular Hemoglobin Concent 29.2L, Red Cell Distribution Width 16.6H, Platelet Count 262, Mean Platelet Volume 6.6, Neutrophils (%) (Auto) , Lymphocytes (%) (Auto) , Monocytes (%) (Auto) , Eosinophils (%) (Auto) , Basophils (%) (Auto) , Neutrophils % (Manual) [Pending], Lymphocytes % (Manual) [Pending], Platelet Estimate [Pending], Platelet Morphology [Pending], Sodium Level 139, Potassium Level 4.7, Chloride Level 103, Carbon Dioxide Level 33H, Anion Gap 3L, Blood Urea Nitrogen 60H, Creatinine 2.5H, Estimat Glomerular Filtration Rate 24.9, Glucose Level 140H, Calcium Level 9.3, Phosphorus Level 2.5, Magnesium Level 2.6H, Total Bilirubin 0.4, Aspartate Amino Transf (AST/SGOT ) 27, Alanine Aminotransferase (ALT/SGPT) 13, Alkaline Phosphatase 107, Total Protein 6.2L, Albumin 2.2L, Globulin 4.0, Albumin/Globulin Ratio 0.6L Height (Feet): 5 Height (Inches): 4.00 Weight (Pounds): 196 General Appearance: no apparent distress, lethargic EENT: other - NG tube in place Neck: limited range of motion Cardiovascular: normal rate - Rate mid 80s Abdomen: distended Objective No change Naveed Vanegas MD Nov 14, 2019 10:58
[2019-11-14 12:00] VITALS: BP 153/72
[2019-11-14] MEDS ORDERED: Sennosides 8.6mg tab NG PRN (12:00)
--- NOTE | 2019-11-14 12:02 | Diagnostic Imaging Report ---
EXAM: XR Abdomen, 2 Views CLINICAL HISTORY: NGT TECHNIQUE: Frontal view of the abdomen/pelvis with upright view of the abdomen. COMPARISON: Abdominal radiograph On 11/14/2019 at 904 hours FINDINGS: Hardware: Enteric tube terminates in the region of the proximal stomach. Distal portions of a central venous catheter seen which terminates near the junction of the SVC and right atrium. Abdomen: Nonspecific bowel gas pattern with gaseous distended distention of partially visualized colonic loops. No free air. Bones: Normal. Soft tissues: Normal. Lower chest: Diffusely prominent interstitial lung markings. Atherosclerotic calcifications of the aorta. IMPRESSION: 1. Enteric tube terminates in the region of the proximal stomach. Recommend continued advancement to be well within the stomach. 2. Distal portions of a central venous catheter seen which terminates near the junction of the SVC and right atrium.
--- NOTE | 2019-11-14 12:56 | Hematology/Onc Progress Note ---
Assessment/Plan Assessment/Plan ASSESSMENT AND RECOMMENDATIONS: # Anemia of chronic disease due to underlying chronic medical issues, multifactorial --> Anemia w/u has been reviewed. --> no evidence of hemolysis is noted, peripheral smear has been reviewed --> hgb goal is >7, transfuse as needed --> currently remains stable, occult blood negative --> hgb 8.4->8.6->8.3->8->8.2->9.2-->9.2->8.9-->8.1-->8.7>9.4 --> some blood loss due to hematuria after inflated reyes pulled 8/6 am --> EPOGEN Started # Acute kidney injury r/o potential reversible component --> reviewed meds, those that are renally cleared removed --> as per renal recs, appreciated --> cr 3.5-->4.2 --> Hd started and dw renal # Hypertension, essential --> sbp goal is <140, consider anti-htn as needed --> currently started on hyralazine 25mg po q6h prn sbp >140 # CHF - hx of CHf --> diuresis with lasix as needed --> cardiology recs appreciated prior adm #. Leukocytosis with underlying infectionv stress reaction HISTORY --> per id and better --> for infection, ABX ctx/vanc-->off #. Bilateral lower extremity amputee, metatarsal several years ago #. Dysphagia s/p peg --> peg pulled out and now with gtube #. Hyperkalemia -- kayxelate as needed #. Agitation requires restraints #. Dvt ppx scds --> apixaban->off for catheter placement 11/07 The time the note was entered does not necessarily correspond to the time the patient was seen. GREATLY APPRECIATE CONSULTATION. Subjective Constitutional: Denies: no symptoms, chills, fever, malaise, weakness, other HEENT: Denies: no symptoms, eye pain, blurred vision, tearing, double vision, ear pain, ear discharge, nose pain, nose congestion, throat pain, throat swelling, mouth pain, mouth swelling, other Cardiovascular: Denies: no symptoms, chest pain, edema, irregular heart rate, lightheadedness, palpitations, syncope, other Respiratory: Denies: no symptoms, cough, shortness of breath, SOB with excertion, SOB at rest, sputum, wheezing, other Gastrointestinal/Abdominal: Denies: no symptoms, abdomen distended, abdominal pain, black stools, tarry stools, blood in stool, constipated, diarrhea, difficulty swallowing, nausea, poor appetite, poor fluid intake, rectal bleeding , vomiting, other Genitourinary: Denies: no symptoms, burning, discharge, frequency, flank pain, hematuria, incontinence, pain, urgency, other Neurologic/Psychiatric: Denies: no symptoms, anxiety, depressed, emotional problems, headache, numbness, paresthesia, pre-existing deficit, seizure, tingling, tremors, weakness, other Endocrine: Denies: no symptoms, excessive sweating, flushing, intolerance to cold, intolerance to heat, increased hunger, increased thirst, increased urine, unexplained weight gain, unexplained weight loss, other Allergies: Coded Allergies: PENICILLINS (Verified Allergy, Unknown, 10/25/19) tolerated Ceftriaxone Subjective 10/[address] Chang, to do best to avoid haldol, continue restraints, jag rn, on nc, feeling better 10/25 still with some agitation overnight, meds reviewed, jag rn, haldol given in AM 10/26 is on 2l nc, also is on restraints, no night sweats, no bleeding 10/27 reyes catheter has been removed by patient, and resinserted, bed sheets, with bright red blood on exam 10/28 labs are noted, no bleeding, cr is worse, seen by renal, remains edematous 11/04 no major changes, hd as per renal, recs are noted, labs reviewed, pending neuro eval 11/05 is on bipap with restraints, no major changes, no bleeding, labs noted 11/06 remains agitated, is off eliquis for catheter placement for tuesday 11/07 on bipap, remains agitated, jag rn, procedure today 11/08 remains confused, no bleeding, meds noted, hgb 8.9, may need peg 11/09 on bipap, remains confused in restraints, jag rn, hgb lower 11/10 no new events, overnight bipap, now 2oxygen nc, cbc is pending, right chest pc 11/11 ngtube was pulled out, jag slaas, on nc, holding dc, restraints needed 11/13 gtube was pulled out and now with ngt, no bleeding, dw rn Objective Objective Current Medications Medications (Trade) Dose Ordered Sig/Cammy Route PRN Reason Start Time Stop Time Status Last Admin Dose Admin Acetaminophen (Tylenol) 650 mg Q6H PRN NG Pain 3-5 11/14/19 12:00 12/02/19 00:00 Amlodipine Besylate (Norvasc) 10 mg DAILY NG 11/15/19 09:00 11/25/19 08:59 Apixaban (Eliquis) 2.5 mg BID NG 11/14/19 18:00 02/08/20 17:59 Atorvastatin Calcium (Lipitor) 10 mg BEDTIME NG 11/14/19 21:00 01/21/20 20:59 Chlorhexidine Gluconate (Yi-Hex 2%) 1 applic DAILY@1999 TOPIC 11/14/19 20:00 01/31/20 19:59 Clonidine HCl (Catapres TTS-1) 1 patch QWEEK TDERMAL 11/19/19 19:00 02/10/20 18:59 Dextrose (Dextrose 50%) 25 ml Q30M PRN IV Hypoglycemia 11/14/19 10:45 01/20/20 21:44 Dextrose (Dextrose 50%) 50 ml Q30M PRN IV Hypoglycemia 11/14/19 10:45 01/20/20 21:44 Docusate Sodium (Colace) 100 mg THREE TIMES A DAY NG 11/14/19 13:00 12/02/19 17:59 Epoetin William (Epoetin William(ESRD on dialysis)) 10,000 unit FRI-FRI-FRI SUBQ 11/15/19 21:00 02/01/20 20:59 Haloperidol (Haldol) 5 mg Q12H PRN NG Agitation 11/14/19 12:00 12/26/19 00:00 Haloperidol Lactate (Haldol) 5 mg Q6H PRN IM Agitation 11/14/19 12:00 12/10/19 00:00 Insulin Aspart (NovoLOG) Q6HR SUBQ 11/14/19 12:00 01/31/20 06:29 Lactulose (Cephulac) 10 gm BID NG 11/14/19 18:00 12/01/19 08:59 Lansoprazole (Prevacid) 30 mg DAILY NG 11/15/19 09:00 12/11/19 08:59 Levothyroxine Sodium (Synthroid) 75 mcg DAILY@0630 NG 11/15/19 06:30 12/04/19 06:29 Lisinopril (ZestriL) 20 mg Q12HR NG 11/14/19 21:00 12/13/19 20:59 Metoprolol Tartrate (Lopressor) 25 mg Q12HR NG 11/14/19 21:00 02/08/20 20:59 Polyethylene Glycol (Miralax) 17 gm BEDTIME NG 11/14/19 21:00 12/01/19 20:59 Sennosides (Senokot) 8.6 mg HSPRN PRN NG Constipation 11/14/19 12:00 12/14/19 11:59 Last 24 Hour Vital Signs Date Time Temp Pulse Resp B/P (MAP) Pulse Ox O2 Delivery O2 Flow Rate FiO2 11/14/19 09:42 168/59 11/14/19 09:42 89 168/59 11/14/19 09:42 89 168/59 11/14/19 08:00 97.9 89 20 168/59 (95) 95 11/14/19 07:37 98 Nasal Cannula 2.0 28 11/14/19 04:00 97.9 86 20 155/60 (91) 99 11/14/19 04:00 86 11/14/19 00:00 85 11/14/19 00:00 97.4 81 20 158/63 (94) 99 11/13/19 21:26 88 158/79 11/13/19 21:25 158/79 11/13/19 21:00 Nasal Cannula 2.0 Nasal Cannula 2.0 11/13/19 21:00 97 Nasal Cannula 2.0 28 11/13/19 20:00 88 11/13/19 20:00 97.4 89 20 158/79 (105) 95 11/13/19 16:00 86 11/13/19 16:00 97.0 86 20 156/57 (90) 95 11/13/19 15:37 165/57 11/13/19 12:00 96.9 68 18 151/61 (91) 95 11/13/19 12:00 86 11/13/19 11:00 89 164/66 11/13/19 10:59 164/66 11/13/19 10:59 89 164/66 11/13/19 08:20 Nasal Cannula 2.0 Nasal Cannula 2.0 11/13/19 08:00 2.0 11/13/19 08:00 89 11/13/19 08:00 96.3 20 164/66 (98) 97 11/13/19 07:51 98 Nasal Cannula 2.0 28 11/13/19 05:33 172/62 11/13/19 04:00 83 11/13/19 04:00 2.0 11/13/19 04:00 97.9 92 18 155/60 (91) 96 11/13/19 00:00 85 11/13/19 00:00 2.0 11/13/19 00:00 97.5 88 22 159/57 (91) 98 11/12/19 23:20 164/66 11/12/19 21:00 Nasal Cannula 2.0 11/12/19 20:57 155/88 11/12/19 20:07 97 Nasal Cannula 2.0 28 11/12/19 20:00 88 11/12/19 16:36 187/69 11/12/19 16:00 96.6 85 18 187/69 (108) 99 11/12/19 16:00 2.0 11/12/19 16:00 72 Intake and Output 11/13/19 11/14/19 19:00 07:00 Intake Total 110 ml 30 ml Output Total 300 ml Balance 110 ml -270 ml Free Water 30 ml Tube Feeding 80 ml 30 ml Output Urine Total 300 ml # Voids 2 # Bowel Movements 1 1 Labs Test 11/12/19 05:55 11/13/19 05:41 11/13/19 08:15 11/13/19 12:08 White Blood Count 10.4 K/UL (4.8-10.8) 10.6 K/UL (4.8-10.8) Red Blood Count 2.90 M/UL (4.70-6.10) 3.25 M/UL (4.70-6.10) Hemoglobin 8.7 G/DL (14.2-18.0) 9.8 G/DL (14.2-18.0) Hematocrit 29.3 % (42.0-52.0) 32.8 % (42.0-52.0) Mean Corpuscular Volume 101 FL (80-99) 101 FL (80-99) Mean Corpuscular Hemoglobin 30.2 PG (27.0-31.0) 30.1 PG (27.0-31.0) Mean Corpuscular Hemoglobin Concent 29.8 G/DL (32.0-36.0) 29.9 G/DL (32.0-36.0) Red Cell Distribution Width 16.3 % (11.6-14.8) 16.4 % (11.6-14.8) Platelet Count 211 K/UL (150-450) 237 K/UL (150-450) Mean Platelet Volume 6.3 FL (6.5-10.1) 6.8 FL (6.5-10.1) Neutrophils (%) (Auto) % (45.0-75.0) % (45.0-75.0) Lymphocytes (%) (Auto) % (20.0-45.0) % (20.0-45.0) Monocytes (%) (Auto) % (1.0-10.0) % (1.0-10.0) Eosinophils (%) (Auto) % (0.0-3.0) % (0.0-3.0) Basophils (%) (Auto) % (0.0-2.0) % (0.0-2.0) Differential Total Cells Counted 100 100 Neutrophils % (Manual) 91 % (45-75) 90 % (45-75) Lymphocytes % (Manual) 6 % (20-45) 7 % (20-45) Monocytes % (Manual) 3 % (1-10) 2 % (1-10) Eosinophils % (Manual) 0 % (0-3) 1 % (0-3) Basophils % (Manual) 0 % (0-2) 0 % (0-2) Band Neutrophils 0 % (0-8) 0 % (0-8) Platelet Estimate Adequate Adequate Platelet Morphology Normal Normal Hypochromasia 1+ 1+ Anisocytosis 1+ 1+ Macrocytosis Occasional 1+ Stomatocytes Rare Occasional Sodium Level 137 MMOL/L (136-145) 139 MMOL/L (136-145) Potassium Level 4.1 MMOL/L (3.5-5.1) 4.3 MMOL/L (3.5-5.1) Chloride Level 101 MMOL/L (98-107) 101 MMOL/L (98-107) Carbon Dioxide Level 36 MMOL/L (21-32) 32 MMOL/L (21-32) Anion Gap 1 mmol/L (5-15) 6 mmol/L (5-15) Blood Urea Nitrogen 51 mg/dL (7-18) 55 mg/dL (7-18) Creatinine 3.0 MG/DL (0.55-1.30) 2.6 MG/DL (0.55-1.30) Estimat Glomerular Filtration Rate 20.2 mL/min (>60) 23.8 mL/min (>60) Glucose Level 191 MG/DL (74-106) 158 MG/DL (74-106) Calcium Level 8.4 MG/DL (8.5-10.1) 9.1 MG/DL (8.5-10.1) Phosphorus Level 2.5 MG/DL (2.5-4.9) 2.9 MG/DL (2.5-4.9) Total Bilirubin 0.4 MG/DL (0.2-1.0) 0.5 MG/DL (0.2-1.0) Aspartate Amino Transf (AST/SGOT) 23 U/L (15-37) 23 U/L (15-37) Alanine Aminotransferase (ALT/SGPT) 13 U/L (12-78) 12 U/L (12-78) Alkaline Phosphatase 128 U/L (46-116) 108 U/L (46-116) Total Protein 6.1 G/DL (6.4-8.2) 6.3 G/DL (6.4-8.2) Albumin 2.1 G/DL (3.4-5.0) 2.3 G/DL (3.4-5.0) Globulin 4.0 g/dL 4.0 g/dL Albumin/Globulin Ratio 0.5 (1.0-2.7) 0.6 (1.0-2.7) POC Whole Blood Glucose 165 MG/DL (74-106) 148 MG/DL (74-106) Target Cells Occasional Pro-B-Type Natriuretic Peptide 19898 pg/mL (0-125) Test 11/13/19 17:36 11/13/19 23:42 11/14/19 06:11 11/14/19 06:50 POC Whole Blood Glucose 157 MG/DL (74-106) 157 MG/DL (74-106) 139 MG/DL (74-106) White Blood Count 8.5 K/UL (4.8-10.8) Red Blood Count 3.20 M/UL (4.70-6.10) Hemoglobin 9.4 G/DL (14.2-18.0) Hematocrit 32.3 % (42.0-52.0) Mean Corpuscular Volume 101 FL (80-99) Mean Corpuscular Hemoglobin 29.5 PG (27.0-31.0) Mean Corpuscular Hemoglobin Concent 29.2 G/DL (32.0-36.0) Red Cell Distribution Width 16.6 % (11.6-14.8) Platelet Count 262 K/UL (150-450) Mean Platelet Volume 6.6 FL (6.5-10.1) Neutrophils (%) (Auto) % (45.0-75.0) Lymphocytes (%) (Auto) % (20.0-45.0) Monocytes (%) (Auto) % (1.0-10.0) Eosinophils (%) (Auto) % (0.0-3.0) Basophils (%) (Auto) % (0.0-2.0) Differential Total Cells Counted 100 Neutrophils % (Manual) 90 % (45-75) Lymphocytes % (Manual) 8 % (20-45) Monocytes % (Manual) 2 % (1-10) Eosinophils % (Manual) 0 % (0-3) Basophils % (Manual) 0 % (0-2) Band Neutrophils 0 % (0-8) Platelet Estimate Adequate Platelet Morphology Normal Polychromasia 1+ Hypochromasia 2+ Macrocytosis 1+ Sodium Level 139 MMOL/L (136-145) Potassium Level 4.7 MMOL/L (3.5-5.1) Chloride Level 103 MMOL/L (98-107) Carbon Dioxide Level 33 MMOL/L (21-32) Anion Gap 3 mmol/L (5-15) Blood Urea Nitrogen 60 mg/dL (7-18) Creatinine 2.5 MG/DL (0.55-1.30) Estimat Glomerular Filtration Rate 24.9 mL/min (>60) Glucose Level 140 MG/DL (74-106) Calcium Level 9.3 MG/DL (8.5-10.1) Phosphorus Level 2.5 MG/DL (2.5-4.9) Magnesium Level 2.6 MG/DL (1.8-2.4) Total Bilirubin 0.4 MG/DL (0.2-1.0) Aspartate Amino Transf (AST/SGOT) 27 U/L (15-37) Alanine Aminotransferase (ALT/SGPT) 13 U/L (12-78) Alkaline Phosphatase 107 U/L (46-116) Total Protein 6.2 G/DL (6.4-8.2) Albumin 2.2 G/DL (3.4-5.0) Globulin 4.0 g/dL Albumin/Globulin Ratio 0.6 (1.0-2.7) Height (Feet): 5 Height (Inches): 4.00 Weight (Pounds): 196 Objective GENERAL: Not in acute distress. PULMONARY: Decreased breath sounds. ++ bipap CHEST: ++permacath CARDIOVASCULAR: Regular rate. No S3 or S4. ABDOMEN: Soft, nontender, nondistended. EXTREMITIES: 1+ edema. No cyanosis, swelling, or edema. 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 Melvin Rizzo MD Nov 14, 2019 12:56
[2019-11-14] MEDS ORDERED: Renvela 800mg Pkt NG SCH (13:00)
[2019-11-14 16:00] VITALS: BP 144/60
[2019-11-14 20:00] VITALS: BP 149/59
[2019-11-14] MEDS: Dyna-Hex 2% Top Sol 2oz TOPIC SCH ×2 (20:00→23:00)
[2019-11-14] MEDS: Haloperidol 5mg/ml Inj IM PRN (20:54)
[2019-11-14] MEDS ORDERED: Lisinopril 10mg tab GT SCH (21:00)
--- NOTE | 2019-11-14 21:15 | Progress Note ---
DATE: 11/14/2019 SUBJECTIVE: The patient is awake, alert, afebrile, hemodynamically stable. Two days ago, he pulled out his G-tube and now fed by NG tube. The patient has been assessed today by multiple physicians. However, blocking machine tender had decided not to proceed with PEG insertion prior to the patient has a swallowing evaluation. PHYSICAL EXAMINATION: VITAL SIGNS: Blood pressure ___, pulse is 89, respirations of 20, and temperature 97.0. HEENT: Eyes were normal. ENT, mucous membranes were moist and intact. NECK: Supple with no JVD without lymph nodes. Tracheostomy site is still clean. LUNGS: Clear without rhonchi, rales, or wheezing. HEART: Normal sounds with regular beats. There is no tachycardia at rest. ABDOMEN: Soft and nontender with normal bowel sounds. Gastrostomy site is clean. EXTREMITIES: Warm without cyanosis, clubbing, or edema. LABORATORY AND DIAGNOSTIC DATA: Hemoglobin is 9.4, hematocrit 32.3 with MCV of 101, WBC of 8.5 with a platelet of 262. BUN and creatinine are 60 and 2.5 respectively. Sodium is 139, potassium 4.0, 33. IMPRESSION: The patient has been in stable condition swallowing evaluation. Repeat laboratory tests will be done in the a.m. Ayush Chang M.D. DR: MERCEDES JOB#: [id number] CC:
--- NOTE | 2019-11-14 21:57 | Diagnostic Imaging Report ---
EXAM: XR Abdomen, 2 Views CLINICAL HISTORY: NGT TECHNIQUE: Frontal view of the abdomen/pelvis with upright view of the abdomen. COMPARISON: 11/14/2019. FINDINGS: Intraperitoneal space: No free air. Gastrointestinal tract: Nonspecific bowel gas pattern. No dilation. Organs: Surgical clips within the bladder. Bones/joints: Left common iliac stent. Tubes, lines and devices: NG tube is noted in place with tip below the diaphragm within the stomach. IMPRESSION: NG tube is noted in place with its tip below the diaphragm.
[2019-11-14] MEDS: Miralax 17gm pkt NG SCH (22:08)
[2019-11-14] MEDS: Lisinopril 10mg tab NG SCH (22:09)
--- NOTE | 2019-11-14 23:59 | Cardiology Progress Note ---
Assessment/Plan Assessment/Plan 1. Sinus tachycardia, resolved, continue metoprolol. 2. Acute HFpEF with elevated BNP, 2D echocardiography shows normal LV systolic with LVEF of about 55% but e/o increased intracardiac filling pressure. BP control, mild diuretics. 3. Multiple risk factors for coronary artery disease include diabetes mellitus and hypertension. 4. History of peripheral vascular disease, status post partial foot amputation. 5. Acute on chronic renal failure. 6. Anemia of chronic disease. 7. HTN, stage II, continue amlodipine, lisinopril, optimize metoprolol. Start doxazosin 2mg daily. Subjective Subjective Sinus rhythm at rate of 79. Objective Last 24 Hour Vital Signs Date Time Temp Pulse Resp B/P (MAP) Pulse Ox O2 Delivery O2 Flow Rate FiO2 11/14/19 22:09 149/59 11/14/19 22:09 79 149/59 11/14/19 21:00 Nasal Cannula 2.0 11/14/19 21:00 96 Nasal Cannula 2.0 28 11/14/19 20:00 97.7 79 20 149/59 (89) 97 11/14/19 16:00 96.9 20 144/60 (88) 97 11/14/19 12:00 97.0 20 153/72 (99) 100 11/14/19 09:42 168/59 11/14/19 09:42 89 168/59 11/14/19 09:42 89 168/59 11/14/19 08:00 97.9 89 20 168/59 (95) 95 11/14/19 08:00 90 11/14/19 07:37 98 Nasal Cannula 2.0 28 11/14/19 04:00 97.9 86 20 155/60 (91) 99 11/14/19 04:00 86 11/14/19 00:00 85 11/14/19 00:00 97.4 81 20 158/63 (94) 99 Intake and Output 11/13/19 11/14/19 19:00 07:00 Intake Total 110 ml 30 ml Output Total 300 ml Balance 110 ml -270 ml Free Water 30 ml Tube Feeding 80 ml 30 ml Output Urine Total 300 ml # Voids 2 # Bowel Movements 1 1 2D Echo: LVEF 55%, Pseudo-normal LV physio grade II LV Diastolic fxn, RVSP 22, AL Laboratory Tests Test 11/14/19 06:11 11/14/19 06:50 11/14/19 11:28 POC Whole Blood Glucose 139 MG/DL (74-106) H Pending White Blood Count 8.5 K/UL (4.8-10.8) Red Blood Count 3.20 M/UL (4.70-6.10) L Hemoglobin 9.4 G/DL (14.2-18.0) L Hematocrit 32.3 % (42.0-52.0) L Mean Corpuscular Volume 101 FL (80-99) H Mean Corpuscular Hemoglobin 29.5 PG (27.0-31.0) Mean Corpuscular Hemoglobin Concent 29.2 G/DL (32.0-36.0) L Red Cell Distribution Width 16.6 % (11.6-14.8) H Platelet Count 262 K/UL (150-450) Mean Platelet Volume 6.6 FL (6.5-10.1) Neutrophils (%) (Auto) % (45.0-75.0) Lymphocytes (%) (Auto) % (20.0-45.0) Monocytes (%) (Auto) % (1.0-10.0) Eosinophils (%) (Auto) % (0.0-3.0) Basophils (%) (Auto) % (0.0-2.0) Differential Total Cells Counted 100 Neutrophils % (Manual) 90 % (45-75) H Lymphocytes % (Manual) 8 % (20-45) L Monocytes % (Manual) 2 % (1-10) Eosinophils % (Manual) 0 % (0-3) Basophils % (Manual) 0 % (0-2) Band Neutrophils 0 % (0-8) Platelet Estimate Adequate Platelet Morphology Normal Polychromasia 1+ Hypochromasia 2+ Macrocytosis 1+ Sodium Level 139 MMOL/L (136-145) Potassium Level 4.7 MMOL/L (3.5-5.1) Chloride Level 103 MMOL/L (98-107) Carbon Dioxide Level 33 MMOL/L (21-32) H Anion Gap 3 mmol/L (5-15) L Blood Urea Nitrogen 60 mg/dL (7-18) H Creatinine 2.5 MG/DL (0.55-1.30) H Estimat Glomerular Filtration Rate 24.9 mL/min (>60) Glucose Level 140 MG/DL (74-106) H Calcium Level 9.3 MG/DL (8.5-10.1) Phosphorus Level 2.5 MG/DL (2.5-4.9) Magnesium Level 2.6 MG/DL (1.8-2.4) H Total Bilirubin 0.4 MG/DL (0.2-1.0) Aspartate Amino Transf (AST/SGOT) 27 U/L (15-37) Alanine Aminotransferase (ALT/SGPT) 13 U/L (12-78) Alkaline Phosphatase 107 U/L (46-116) Total Protein 6.2 G/DL (6.4-8.2) L Albumin 2.2 G/DL (3.4-5.0) L Globulin 4.0 g/dL Albumin/Globulin Ratio 0.6 (1.0-2.7) L Objective HEENT: Atraumatic and normocephalic. Anicteric. Pupils are equal, round, and reactive to light and accommodation. Extraocular muscles intact. NECK: JVP less than 5 cm. No carotid bruit. Carotid upstroke is 2+ bilaterally. CARDIOVASCULAR: Normal S1, S2. Regular rate and rhythm. No murmurs, gallops, or rubs. LUNGS: Bilateral rhonchi. ABDOMEN: Soft, nontender, and nondistended. No hepatosplenomegaly. Positive bowel sounds. EXTREMITIES: Bilateral partial foot amputations. Chris Hanley MD Nov 14, 2019 23:59
[2019-11-15] VITALS: BP 138/62
--- NOTE | 2019-11-15 00:48 | Psych Consult Progress Note ---
Psychiatry Progress Note Psychiatry Progress Note Subjective 11/13 confused agitations disoriented Medications Current Medications Medications (Trade) Dose Ordered Sig/Cammy Route PRN Reason Start Time Stop Time Status Last Admin Dose Admin Acetaminophen (Tylenol) 650 mg Q6H PRN NG Pain 3-5 11/14/19 12:00 12/02/19 00:00 Amlodipine Besylate (Norvasc) 10 mg DAILY NG 11/15/19 09:00 11/25/19 08:59 Apixaban (Eliquis) 2.5 mg BID NG 11/14/19 18:00 02/08/20 17:59 11/14/19 17:49 Atorvastatin Calcium (Lipitor) 10 mg BEDTIME NG 11/14/19 21:00 01/21/20 20:59 11/14/19 22:09 Chlorhexidine Gluconate (Yi-Hex 2%) 1 applic DAILY@1999 TOPIC 11/14/19 20:00 01/31/20 19:59 11/14/19 23:00 Clonidine HCl (Catapres TTS-1) 1 patch QWEEK TDERMAL 11/19/19 19:00 02/10/20 18:59 Dextrose (Dextrose 50%) 25 ml Q30M PRN IV Hypoglycemia 11/14/19 10:45 01/20/20 21:44 Dextrose (Dextrose 50%) 50 ml Q30M PRN IV Hypoglycemia 11/14/19 10:45 01/20/20 21:44 Docusate Sodium (Colace) 100 mg THREE TIMES A DAY NG 11/14/19 13:00 12/02/19 17:59 11/14/19 17:49 Doxazosin Mesylate (Cardura) 2 mg DAILY ORAL 11/15/19 09:00 12/15/19 08:59 Epoetin William (Epoetin William(ESRD on dialysis)) 10,000 unit FRI-FRI-FRI SUBQ 11/15/19 21:00 02/01/20 20:59 Haloperidol (Haldol) 5 mg Q12H PRN NG Agitation 11/14/19 12:00 12/26/19 00:00 Haloperidol Lactate (Haldol) 5 mg Q6H PRN IM Agitation 11/14/19 12:00 12/10/19 00:00 11/14/19 20:54 Insulin Aspart (NovoLOG) Q6HR SUBQ 11/14/19 12:00 01/31/20 06:29 11/14/19 18:44 Lactulose (Cephulac) 10 gm BID NG 11/14/19 18:00 12/01/19 08:59 11/14/19 17:49 Lansoprazole (Prevacid) 30 mg DAILY NG 11/15/19 09:00 12/11/19 08:59 Levothyroxine Sodium (Synthroid) 75 mcg DAILY@0630 NG 11/15/19 06:30 12/04/19 06:29 Lisinopril (ZestriL) 20 mg Q12HR NG 11/14/19 21:00 12/13/19 20:59 11/14/19 22:09 Metoprolol Tartrate (Lopressor) 50 mg Q12HR NG 11/15/19 09:00 02/13/20 08:59 Polyethylene Glycol (Miralax) 17 gm BEDTIME NG 11/14/19 21:00 12/01/19 20:59 11/14/19 22:08 Sennosides (Senokot) 8.6 mg HSPRN PRN NG Constipation 11/14/19 12:00 12/14/19 11:59 Neurological/Psychiatric: Denies: no symptoms, anxiety, depressed, emotional problems, headache, numbness, paresthesia, pre-existing deficit, seizure, tingling, tremors, weakness, other Allergies: Coded Allergies: PENICILLINS (Verified Allergy, Unknown, 10/25/19) tolerated Ceftriaxone Objective Data Height (Feet): 5 Height (Inches): 4.00 Weight (Pounds): 196 General Appearance: WD/WN, no apparent distress, alert, confused Appearance: no abnormalities noted Behavior Mannerisms: good eye contact Mental Status Exam - Affect: blunted Mental Status Exam - Mood: anxious, agitated Mental Status Exam - Thought P: tangential, confusion Mental Status Exam - Thought C: delusions (specify) Mental Status Exam - Suicidal: not present Additional Comments: awake, confused, and disoriented. Mood is agitated. Affect is flat. Thought process, there is a paucity of thought content. Thought content, no suicidal or homicidal ideation. Cognition is impaired. Insight and judgment impaired. Dada Finch MD Nov 15, 2019 00:48
[2019-11-15 04:00] VITALS: BP 152/68
[2019-11-15] MEDS: NovoLOG Insulin Flexpen SUBQ SCH ×4 (05:50→23:29)
--- NOTE | 2019-11-15 06:38 | Hematology/Onc Progress Note ---
Assessment/Plan Assessment/Plan ASSESSMENT AND RECOMMENDATIONS: # Anemia of chronic disease due to underlying chronic medical issues, multifactorial --> Anemia w/u has been reviewed. --> no evidence of hemolysis is noted, peripheral smear has been reviewed --> hgb goal is >7, transfuse as needed --> currently remains stable, occult blood negative --> hgb 8.4->8.6->8.3->8->8.2->9.2-->9.2->8.9-->8.1-->8.7>9.4 --> some blood loss due to hematuria after inflated reyes pulled 8/6 am --> EPOGEN Started # Acute kidney injury r/o potential reversible component --> reviewed meds, those that are renally cleared removed --> as per renal recs, appreciated --> cr 3.5-->4.2 --> Hd started and dw renal # Hypertension, essential --> sbp goal is <140, consider anti-htn as needed --> currently started on hyralazine 25mg po q6h prn sbp >140 # CHF - hx of CHf --> diuresis with lasix as needed --> cardiology recs appreciated prior adm #. Leukocytosis with underlying infectionv stress reaction HISTORY --> per id and better --> for infection, ABX ctx/vanc-->off #. Bilateral lower extremity amputee, metatarsal several years ago #. Dysphagia s/p peg --> peg pulled out and now with gtube #. Hyperkalemia -- kayxelate as needed #. Agitation requires restraints #. Dvt ppx scds --> apixaban->off for catheter placement 11/07 The time the note was entered does not necessarily correspond to the time the patient was seen. GREATLY APPRECIATE CONSULTATION. Subjective Cardiovascular: Denies: no symptoms, chest pain, edema, irregular heart rate, lightheadedness, palpitations, syncope, other Respiratory: Denies: no symptoms, cough, shortness of breath, SOB with excertion, SOB at rest, sputum, wheezing, other Gastrointestinal/Abdominal: Denies: no symptoms, abdomen distended, abdominal pain, black stools, tarry stools, blood in stool, constipated, diarrhea, difficulty swallowing, nausea, poor appetite, poor fluid intake, rectal bleeding , vomiting, other Genitourinary: Denies: no symptoms, burning, discharge, frequency, flank pain, hematuria, incontinence, pain, urgency, other Neurologic/Psychiatric: Denies: no symptoms, anxiety, depressed, emotional problems, headache, numbness, paresthesia, pre-existing deficit, seizure, tingling, tremors, weakness, other Endocrine: Denies: no symptoms, excessive sweating, flushing, intolerance to cold, intolerance to heat, increased hunger, increased thirst, increased urine, unexplained weight gain, unexplained weight loss, other Allergies: Coded Allergies: PENICILLINS (Verified Allergy, Unknown, 10/25/19) tolerated Ceftriaxone Subjective 10/[address] Chang, to do best to avoid haldol, continue restraints, jag rn, on fl, feeling better 10/25 still with some agitation overnight, meds reviewed, jag rn, haldol given in AM 10/26 is on 2l nc, also is on restraints, no night sweats, no bleeding 10/27 reyes catheter has been removed by patient, and resinserted, bed sheets, with bright red blood on exam 10/28 labs are noted, no bleeding, cr is worse, seen by renal, remains edematous 11/04 no major changes, hd as per renal, recs are noted, labs reviewed, pending neuro eval 11/05 is on bipap with restraints, no major changes, no bleeding, labs noted 11/06 remains agitated, is off eliquis for catheter placement for tuesday 11/07 on bipap, remains agitated, jag salas, procedure today 11/08 remains confused, no bleeding, meds noted, hgb 8.9, may need peg 11/09 on bipap, remains confused in restraints, jag rn, hgb lower 11/10 no new events, overnight bipap, now 2oxygen nc, cbc is pending, right chest pc 11/11 ngtube was pulled out, jag rn, on nc, holding dc, restraints needed 11/13 gtube was pulled out and now with ngt, no bleeding, jag salas 11/14 ng was taken out again, and reinserted by ashely rn, jag rn in am Objective Objective Current Medications Medications (Trade) Dose Ordered Sig/Cammy Route PRN Reason Start Time Stop Time Status Last Admin Dose Admin Acetaminophen (Tylenol) 650 mg Q6H PRN NG Pain 3-5 11/14/19 12:00 12/02/19 00:00 Amlodipine Besylate (Norvasc) 10 mg DAILY NG 11/15/19 09:00 11/25/19 08:59 Apixaban (Eliquis) 2.5 mg BID NG 11/14/19 18:00 02/08/20 17:59 11/14/19 17:49 Atorvastatin Calcium (Lipitor) 10 mg BEDTIME NG 11/14/19 21:00 01/21/20 20:59 11/14/19 22:09 Chlorhexidine Gluconate (Yi-Hex 2%) 1 applic DAILY@1999 TOPIC 11/14/19 20:00 01/31/20 19:59 11/14/19 23:00 Clonidine HCl (Catapres TTS-1) 1 patch QWEEK TDERMAL 11/19/19 19:00 02/10/20 18:59 Dextrose (Dextrose 50%) 25 ml Q30M PRN IV Hypoglycemia 11/14/19 10:45 01/20/20 21:44 Dextrose (Dextrose 50%) 50 ml Q30M PRN IV Hypoglycemia 11/14/19 10:45 01/20/20 21:44 Docusate Sodium (Colace) 100 mg THREE TIMES A DAY NG 11/14/19 13:00 12/02/19 17:59 11/14/19 17:49 Doxazosin Mesylate (Cardura) 2 mg DAILY ORAL 11/15/19 09:00 12/15/19 08:59 Epoetin William (Epoetin William(ESRD on dialysis)) 10,000 unit SUBQ 11/15/19 21:00 02/01/20 20:59 Haloperidol (Haldol) 5 mg Q12H PRN NG Agitation 11/14/19 12:00 12/26/19 00:00 Haloperidol Lactate (Haldol) 5 mg Q6H PRN IM Agitation 11/14/19 12:00 12/10/19 00:00 11/14/19 20:54 Insulin Aspart (NovoLOG) Q6HR SUBQ 11/14/19 12:00 01/31/20 06:29 11/15/19 05:50 Lactulose (Cephulac) 10 gm BID NG 11/14/19 18:00 12/01/19 08:59 11/14/19 17:49 Lansoprazole (Prevacid) 30 mg DAILY NG 11/15/19 09:00 12/11/19 08:59 Levothyroxine Sodium (Synthroid) 75 mcg DAILY@0630 NG 11/15/19 06:30 12/04/19 06:29 11/15/19 05:48 Lisinopril (ZestriL) 20 mg Q12HR NG 11/14/19 21:00 12/13/19 20:59 11/14/19 22:09 Metoprolol Tartrate (Lopressor) 50 mg Q12HR NG 11/15/19 09:00 02/13/20 08:59 Polyethylene Glycol (Miralax) 17 gm BEDTIME NG 11/14/19 21:00 12/01/19 20:59 11/14/19 22:08 Sennosides (Senokot) 8.6 mg HSPRN PRN NG Constipation 11/14/19 12:00 12/14/19 11:59 Last 24 Hour Vital Signs Date Time Temp Pulse Resp B/P (MAP) Pulse Ox O2 Delivery O2 Flow Rate FiO2 11/15/19 04:00 97.7 81 20 152/68 (96) 96 11/15/19 00:00 97.7 77 20 138/62 (87) 96 11/14/19 22:09 149/59 11/14/19 22:09 79 149/59 11/14/19 21:00 Nasal Cannula 2.0 11/14/19 21:00 96 Nasal Cannula 2.0 28 11/14/19 20:00 97.7 79 20 149/59 (89) 97 11/14/19 16:00 96.9 20 144/60 (88) 97 11/14/19 12:00 97.0 20 153/72 (99) 100 11/14/19 09:42 168/59 11/14/19 09:42 89 168/59 11/14/19 09:42 89 168/59 11/14/19 08:00 97.9 89 20 168/59 (95) 95 11/14/19 08:00 90 11/14/19 07:37 98 Nasal Cannula 2.0 28 11/14/19 04:00 97.9 86 20 155/60 (91) 99 11/14/19 04:00 86 11/14/19 00:00 85 11/14/19 00:00 97.4 81 20 158/63 (94) 99 11/13/19 21:26 88 158/79 11/13/19 21:25 158/79 11/13/19 21:00 Nasal Cannula 2.0 Nasal Cannula 2.0 11/13/19 21:00 97 Nasal Cannula 2.0 28 11/13/19 20:00 88 11/13/19 20:00 97.4 89 20 158/79 (105) 95 11/13/19 16:00 86 11/13/19 16:00 97.0 86 20 156/57 (90) 95 11/13/19 15:37 165/57 11/13/19 12:00 96.9 68 18 151/61 (91) 95 11/13/19 12:00 86 11/13/19 11:00 89 164/66 11/13/19 10:59 164/66 11/13/19 10:59 89 164/66 11/13/19 08:20 Nasal Cannula 2.0 Nasal Cannula 2.0 11/13/19 08:00 2.0 11/13/19 08:00 89 11/13/19 08:00 96.3 20 164/66 (98) 97 11/13/19 07:51 98 Nasal Cannula 2.0 28 Intake and Output 11/14/19 11/15/19 19:00 07:00 Intake Total 60 ml 340 ml Output Total 100 ml Balance -40 ml 340 ml Free Water 100 ml Tube Feeding 60 ml 240 ml Output Urine Total 100 ml Labs Test 11/13/19 05:41 11/13/19 08:15 11/13/19 12:08 11/13/19 17:36 POC Whole Blood Glucose 165 MG/DL (74-106) 148 MG/DL (74-106) 157 MG/DL (74-106) White Blood Count 10.6 K/UL (4.8-10.8) Red Blood Count 3.25 M/UL (4.70-6.10) Hemoglobin 9.8 G/DL (14.2-18.0) Hematocrit 32.8 % (42.0-52.0) Mean Corpuscular Volume 101 FL (80-99) Mean Corpuscular Hemoglobin 30.1 PG (27.0-31.0) Mean Corpuscular Hemoglobin Concent 29.9 G/DL (32.0-36.0) Red Cell Distribution Width 16.4 % (11.6-14.8) Platelet Count 237 K/UL (150-450) Mean Platelet Volume 6.8 FL (6.5-10.1) Neutrophils (%) (Auto) % (45.0-75.0) Lymphocytes (%) (Auto) % (20.0-45.0) Monocytes (%) (Auto) % (1.0-10.0) Eosinophils (%) (Auto) % (0.0-3.0) Basophils (%) (Auto) % (0.0-2.0) Differential Total Cells Counted 100 Neutrophils % (Manual) 90 % (45-75) Lymphocytes % (Manual) 7 % (20-45) Monocytes % (Manual) 2 % (1-10) Eosinophils % (Manual) 1 % (0-3) Basophils % (Manual) 0 % (0-2) Band Neutrophils 0 % (0-8) Platelet Estimate Adequate Platelet Morphology Normal Hypochromasia 1+ Anisocytosis 1+ Macrocytosis 1+ Target Cells Occasional Stomatocytes Occasional Sodium Level 139 MMOL/L (136-145) Potassium Level 4.3 MMOL/L (3.5-5.1) Chloride Level 101 MMOL/L (98-107) Carbon Dioxide Level 32 MMOL/L (21-32) Anion Gap 6 mmol/L (5-15) Blood Urea Nitrogen 55 mg/dL (7-18) Creatinine 2.6 MG/DL (0.55-1.30) Estimat Glomerular Filtration Rate 23.8 mL/min (>60) Glucose Level 158 MG/DL (74-106) Calcium Level 9.1 MG/DL (8.5-10.1) Phosphorus Level 2.9 MG/DL (2.5-4.9) Total Bilirubin 0.5 MG/DL (0.2-1.0) Aspartate Amino Transf (AST/SGOT) 23 U/L (15-37) Alanine Aminotransferase (ALT/SGPT) 12 U/L (12-78) Alkaline Phosphatase 108 U/L (46-116) Pro-B-Type Natriuretic Peptide 32666 pg/mL (0-125) Total Protein 6.3 G/DL (6.4-8.2) Albumin 2.3 G/DL (3.4-5.0) Globulin 4.0 g/dL Albumin/Globulin Ratio 0.6 (1.0-2.7) Test 11/13/19 23:42 11/14/19 06:11 11/14/19 06:50 11/14/19 11:28 POC Whole Blood Glucose 157 MG/DL (74-106) 139 MG/DL (74-106) White Blood Count 8.5 K/UL (4.8-10.8) Red Blood Count 3.20 M/UL (4.70-6.10) Hemoglobin 9.4 G/DL (14.2-18.0) Hematocrit 32.3 % (42.0-52.0) Mean Corpuscular Volume 101 FL (80-99) Mean Corpuscular Hemoglobin 29.5 PG (27.0-31.0) Mean Corpuscular Hemoglobin Concent 29.2 G/DL (32.0-36.0) Red Cell Distribution Width 16.6 % (11.6-14.8) Platelet Count 262 K/UL (150-450) Mean Platelet Volume 6.6 FL (6.5-10.1) Neutrophils (%) (Auto) % (45.0-75.0) Lymphocytes (%) (Auto) % (20.0-45.0) Monocytes (%) (Auto) % (1.0-10.0) Eosinophils (%) (Auto) % (0.0-3.0) Basophils (%) (Auto) % (0.0-2.0) Differential Total Cells Counted 100 Neutrophils % (Manual) 90 % (45-75) Lymphocytes % (Manual) 8 % (20-45) Monocytes % (Manual) 2 % (1-10) Eosinophils % (Manual) 0 % (0-3) Basophils % (Manual) 0 % (0-2) Band Neutrophils 0 % (0-8) Platelet Estimate Adequate Platelet Morphology Normal Polychromasia 1+ Hypochromasia 2+ Macrocytosis 1+ Sodium Level 139 MMOL/L (136-145) Potassium Level 4.7 MMOL/L (3.5-5.1) Chloride Level 103 MMOL/L (98-107) Carbon Dioxide Level 33 MMOL/L (21-32) Anion Gap 3 mmol/L (5-15) Blood Urea Nitrogen 60 mg/dL (7-18) Creatinine 2.5 MG/DL (0.55-1.30) Estimat Glomerular Filtration Rate 24.9 mL/min (>60) Glucose Level 140 MG/DL (74-106) Calcium Level 9.3 MG/DL (8.5-10.1) Phosphorus Level 2.5 MG/DL (2.5-4.9) Magnesium Level 2.6 MG/DL (1.8-2.4) Total Bilirubin 0.4 MG/DL (0.2-1.0) Aspartate Amino Transf (AST/SGOT) 27 U/L (15-37) Alanine Aminotransferase (ALT/SGPT) 13 U/L (12-78) Alkaline Phosphatase 107 U/L (46-116) Total Protein 6.2 G/DL (6.4-8.2) Albumin 2.2 G/DL (3.4-5.0) Globulin 4.0 g/dL Albumin/Globulin Ratio 0.6 (1.0-2.7) Test 11/15/19 05:50 Height (Feet): 5 Height (Inches): 4.00 Weight (Pounds): 196 Objective GENERAL: Not in acute distress. HEENT: ++ngt PULMONARY: Decreased breath sounds. ++ bipap CHEST: ++permacath CARDIOVASCULAR: Regular rate. No S3 or S4. ABDOMEN: Soft, nontender, nondistended. EXTREMITIES: 1+ edema. No cyanosis, swelling, or edema. 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 Melvin Rizzo MD Nov 15, 2019 06:38
[2019-11-15 07:05] LABS: BASOPHILS % (AUTO) 0.6 % (0.0-2.0); EOSINOPHILS % (AUTO) 1.2 % (0.0-3.0); HEMOGLOBIN 8.8 G/DL (14.2-18.0); MEAN CORPUSCULAR VOLUME 102 FL (80-99); MONOCYTES % (AUTO) 3.7 % (1.0-10.0); NEUTROPHILS % (AUTO) 83.5 % (45.0-75.0); PLATELET COUNT 290 K/UL (150-450); RED BLOOD COUNT 2.95 M/UL (4.70-6.10); RED CELL DISTRIBUTION WIDTH 16.2 % (11.6-14.8); WHITE BLOOD COUNT 8.3 K/UL (4.8-10.8)
[2019-11-15 07:40] LABS: ALANINE AMINOTRANSFERASE 10 U/L (12-78); ALBUMIN 2.3 G/DL (3.4-5.0); ALBUMIN/GLOBULIN RATIO 0.6 (1.0-2.7); ALKALINE PHOSPHATASE 130 U/L (46-116); ANION GAP 4 mmol/L (5-15); ASPARTATE AMINO TRANSFERASE 23 U/L (15-37); BILIRUBIN,TOTAL 0.3 MG/DL (0.2-1.0); BLOOD UREA NITROGEN 67 mg/dL (7-18); CALCIUM 9.1 MG/DL (8.5-10.1); CARBON DIOXIDE 35 MMOL/L (21-32); CHLORIDE 102 MMOL/L (98-107); CREATININE 2.8 MG/DL (0.55-1.30); PHOSPHORUS 3.9 MG/DL (2.5-4.9); POTASSIUM 4.8 MMOL/L (3.5-5.1); SODIUM 141 MMOL/L (136-145)
[2019-11-15 08:00] VITALS: BP 144/75
--- NOTE | 2019-11-15 08:31 | Infectious Diseases Prog Note ---
Assessment/Plan 79yo M from SNF who p/w hypoglycemia and resp failure: Acute hypoxic respiratory failure, on BiPAP > 2L NC> RA > 2L NC Rapid COVID neg x2 (10/21, 10/24) Pneumonia on CXR Volume overload 10/30 CXR: Slightly improved 10/25 CXR: Bilateral alveolar densities are unchanged 10/24 Sp cx normal resp demario (prelim) 10/23 CXR: 1. Small layering right pleural effusion, not significantly changed. The previously noted small left pleural effusion is not as evident.Prominent lung markings and haziness, right greater left, which may be related to pulmonary vascular congestion versus pneumonitis. This is not significantly changed.. Subsegmental atelectasis versus infiltrate in the medial left lung base, also not significantly changed. 10/21 CXR: 1. Small bilateral pleural effusions. Bibasilar atelectasis versus pneumonia. 2. Prominent lung markings and hazy opacities in right greater than left lungs may represent artifact versus pulmonary vasculature congestion and edema versus infectious/inflammatory process. 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 10/31 No clear clinical correlate to this imaging finding, s/p 7 days of CTX which is good abx for mastoiditis Hypercapnia, on BiPAP, improving Afebrile No leukocytosis Anemia to 6.8, improved UA neg, UCx neg R/o bacteremia 10/21 BCx NTD ALEXIS on CKD, worsening --> now on HD HBsAg neg Plan: Cont to monitor off abx, s/p 7d of abx for pna, but this also covered for possible mastoiditis ENT to evaluate ears/TMs for signs of underlying mastoiditis, as seen on CT head ; would appreciate the evaluation as pt unable to tell us if he has ear pain/DE LEON , etc; if unable to obtain in house, OK for pt to have outpt ENT f/u for evaluation given that pt has remained AF wo s/sx of ear infection here, and there is no pain on ear exam here (though unable to fully evaluate the inner ears) 11/07 Clindamycin x1 for catheter placement 10/31 SP CTX #7 10/26 SP vancomycin IV #5 Trend resp status Monitor CBC, CMP Thank you for this consult. [facility] will continue to follow. Subjective Allergies: Coded Allergies: PENICILLINS (Verified Allergy, Unknown, 10/25/19) tolerated Ceftriaxone afebrile no leukocytosis off abx Objective Last 24 Hour Vital Signs Date Time Temp Pulse Resp B/P (MAP) Pulse Ox O2 Delivery O2 Flow Rate FiO2 11/15/19 04:00 97.7 81 20 152/68 (96) 96 11/15/19 00:00 97.7 77 20 138/62 (87) 96 11/14/19 22:09 149/59 11/14/19 22:09 79 149/59 11/14/19 21:00 Nasal Cannula 2.0 11/14/19 21:00 96 Nasal Cannula 2.0 28 11/14/19 20:00 97.7 79 20 149/59 (89) 97 11/14/19 16:00 96.9 20 144/60 (88) 97 11/14/19 12:00 97.0 20 153/72 (99) 100 11/14/19 09:42 168/59 11/14/19 09:42 89 168/59 11/14/19 09:42 89 168/59 Height (Feet): 5 Height (Inches): 4.00 Weight (Pounds): 192 Gen NAD Pulm: BL chest rise Abd: Obese, soft, NTND Ext: No c/c/e, 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 Laboratory Tests Test 11/14/19 11:28 11/15/19 05:50 POC Whole Blood Glucose Pending White Blood Count 8.3 K/UL (4.8-10.8) Red Blood Count 2.95 M/UL (4.70-6.10) L Hemoglobin 8.8 G/DL (14.2-18.0) L Hematocrit 30.0 % (42.0-52.0) L Mean Corpuscular Volume 102 FL (80-99) H Mean Corpuscular Hemoglobin 29.9 PG (27.0-31.0) Mean Corpuscular Hemoglobin Concent 29.4 G/DL (32.0-36.0) L Red Cell Distribution Width 16.2 % (11.6-14.8) H Platelet Count 290 K/UL (150-450) Mean Platelet Volume 6.4 FL (6.5-10.1) L Neutrophils (%) (Auto) 83.5 % (45.0-75.0) H Lymphocytes (%) (Auto) 11.0 % (20.0-45.0) L Monocytes (%) (Auto) 3.7 % (1.0-10.0) Eosinophils (%) (Auto) 1.2 % (0.0-3.0) Basophils (%) (Auto) 0.6 % (0.0-2.0) Sodium Level 141 MMOL/L (136-145) Potassium Level 4.8 MMOL/L (3.5-5.1) Chloride Level 102 MMOL/L (98-107) Carbon Dioxide Level 35 MMOL/L (21-32) H Anion Gap 4 mmol/L (5-15) L Blood Urea Nitrogen 67 mg/dL (7-18) H Creatinine 2.8 MG/DL (0.55-1.30) H Estimat Glomerular Filtration Rate 21.9 mL/min (>60) Glucose Level 170 MG/DL (74-106) H Calcium Level 9.1 MG/DL (8.5-10.1) Phosphorus Level 3.9 MG/DL (2.5-4.9) Magnesium Level 2.7 MG/DL (1.8-2.4) H Total Bilirubin 0.3 MG/DL (0.2-1.0) Aspartate Amino Transf (AST/SGOT) 23 U/L (15-37) Alanine Aminotransferase (ALT/SGPT) 10 U/L (12-78) L Alkaline Phosphatase 130 U/L (46-116) H C-Reactive Protein, Quantitative 4.9 mg/dL (0.00-0.90) H Pro-B-Type Natriuretic Peptide 13725 pg/mL (0-125) H Total Protein 6.4 G/DL (6.4-8.2) Albumin 2.3 G/DL (3.4-5.0) L Globulin 4.1 g/dL Albumin/Globulin Ratio 0.6 (1.0-2.7) L Current Medications Medications (Trade) Dose Ordered Sig/Cammy Route PRN Reason Start Time Stop Time Status Last Admin Dose Admin Acetaminophen (Tylenol) 650 mg Q6H PRN NG Pain 3-5 11/14/19 12:00 12/02/19 00:00 Amlodipine Besylate (Norvasc) 10 mg DAILY NG 11/15/19 09:00 11/25/19 08:59 Apixaban (Eliquis) 2.5 mg BID NG 11/14/19 18:00 02/08/20 17:59 11/14/19 17:49 Atorvastatin Calcium (Lipitor) 10 mg BEDTIME NG 11/14/19 21:00 01/21/20 20:59 11/14/19 22:09 Chlorhexidine Gluconate (Yi-Hex 2%) 1 applic DAILY@2000 TOPIC 11/14/19 20:00 01/31/20 19:59 11/14/19 23:00 Clonidine HCl (Catapres TTS-1) 1 patch QWEEK TDERMAL 11/19/19 19:00 02/10/20 18:59 Dextrose (Dextrose 50%) 25 ml Q30M PRN IV Hypoglycemia 11/14/19 10:45 01/20/20 21:44 Dextrose (Dextrose 50%) 50 ml Q30M PRN IV Hypoglycemia 11/14/19 10:45 01/20/20 21:44 Docusate Sodium (Colace) 100 mg THREE TIMES A DAY NG 11/14/19 13:00 12/02/19 17:59 11/14/19 17:49 Doxazosin Mesylate (Cardura) 2 mg DAILY ORAL 11/15/19 09:00 12/15/19 08:59 Epoetin William (Epoetin William(ESRD on dialysis)) 10,000 unit FRI- SUBQ 11/15/19 21:00 02/01/20 20:59 Haloperidol (Haldol) 5 mg Q12H PRN NG Agitation 11/14/19 12:00 12/26/19 00:00 Haloperidol Lactate (Haldol) 5 mg Q6H PRN IM Agitation 11/14/19 12:00 12/10/19 00:00 11/14/19 20:54 Insulin Aspart (NovoLOG) Q6HR SUBQ 11/14/19 12:00 01/31/20 06:29 11/15/19 05:50 Lactulose (Cephulac) 10 gm BID NG 11/14/19 18:00 12/01/19 08:59 11/14/19 17:49 Lansoprazole (Prevacid) 30 mg DAILY NG 11/15/19 09:00 12/11/19 08:59 Levothyroxine Sodium (Synthroid) 75 mcg DAILY@0630 NG 11/15/19 06:30 12/04/19 06:29 11/15/19 05:48 Lisinopril (ZestriL) 20 mg Q12HR NG 11/14/19 21:00 12/13/19 20:59 11/14/19 22:09 Metoprolol Tartrate (Lopressor) 50 mg Q12HR NG 11/15/19 09:00 02/13/20 08:59 Polyethylene Glycol (Miralax) 17 gm BEDTIME NG 11/14/19 21:00 12/01/19 20:59 11/14/19 22:08 Sennosides (Senokot) 8.6 mg HSPRN PRN NG Constipation 11/14/19 12:00 12/14/19 11:59 Trinity Pan M.D. Nov 15, 2019 08:31
[2019-11-15] MEDS: Lactulose 10gm/15ml UDC NG SCH ×2 (09:12→17:07)
[2019-11-15] MEDS: Docusate 100mg/10ml Liq NG SCH ×3 (09:12→17:07)
[2019-11-15] MEDS: Eliquis 2.5mg tablet NG SCH (09:13)
[2019-11-15] MEDS: Metoprolol Tartrate 50mg tab NG SCH ×2 (09:13→20:22)
[2019-11-15] MEDS: Doxazosin 4mg tab ORAL SCH (09:14)
[2019-11-15] MEDS: Lisinopril 10mg tab NG SCH (09:14)
--- NOTE | 2019-11-15 10:01 | General Progress Note ---
Assessment/Plan Problem List: (1) Hypertension ICD Codes: I10 - Essential (primary) hypertension SNOMED: 01620432 (2) Diabetes mellitus ICD Codes: E11.9 - Type 2 diabetes mellitus without complications SNOMED: 61045250 (3) Anemia ICD Codes: D64.9 - Anemia, unspecified SNOMED: 601415457 (4) Cholelithiasis ICD Codes: K80.20 - Calculus of gallbladder without cholecystitis without obstruction SNOMED: 513799705 (5) CHF (congestive heart failure) ICD Codes: I50.9 - Heart failure, unspecified SNOMED: 13194711 Assessment/Plan: HD per nephrology patient pulled the GT out ordered repeat swallow eval>>pending NGTF for now may need another peg Subjective ROS Limited/Unobtainable: No Allergies: Coded Allergies: PENICILLINS (Verified Allergy, Unknown, 10/25/19) tolerated Ceftriaxone Objective Last 24 Hour Vital Signs Date Time Temp Pulse Resp B/P (MAP) Pulse Ox O2 Delivery O2 Flow Rate FiO2 11/15/19 09:14 144/75 11/15/19 09:13 84 144/75 11/15/19 09:13 84 144/75 11/15/19 09:00 Nasal Cannula 2.0 Nasal Cannula 2.0 11/15/19 08:00 97.7 84 20 144/75 (98) 97 11/15/19 04:00 97.7 81 20 152/68 (96) 96 11/15/19 00:00 97.7 77 20 138/62 (87) 96 11/14/19 22:09 149/59 11/14/19 22:09 79 149/59 11/14/19 21:00 Nasal Cannula 2.0 11/14/19 21:00 96 Nasal Cannula 2.0 28 11/14/19 20:00 97.7 79 20 149/59 (89) 97 11/14/19 16:00 96.9 20 144/60 (88) 97 11/14/19 12:00 97.0 20 153/72 (99) 100 Intake and Output 11/14/19 11/15/19 19:00 07:00 Intake Total 60 ml 340 ml Output Total 100 ml Balance -40 ml 340 ml Free Water 100 ml Tube Feeding 60 ml 240 ml Output Urine Total 100 ml Laboratory Tests 11/14/19 11:28: POC Whole Blood Glucose [Pending] 11/15/19 05:50: White Blood Count 8.3, Red Blood Count 2.95L, Hemoglobin 8.8L, Hematocrit 30.0L , Mean Corpuscular Volume 102H, Mean Corpuscular Hemoglobin 29.9, Mean Corpuscular Hemoglobin Concent 29.4L, Red Cell Distribution Width 16.2H, Platelet Count 290, Mean Platelet Volume 6.4L, Neutrophils (%) (Auto) 83.5H, Lymphocytes (%) (Auto) 11.0L, Monocytes (%) (Auto) 3.7, Eosinophils (%) (Auto) 1.2, Basophils (%) (Auto) 0.6, Sodium Level 141, Potassium Level 4.8, Chloride Level 102, Carbon Dioxide Level 35H, Anion Gap 4L, Blood Urea Nitrogen 67H, Creatinine 2.8H, Estimat Glomerular Filtration Rate 21.9, Glucose Level 170H, Calcium Level 9.1, Phosphorus Level 3.9, Magnesium Level 2.7H, Total Bilirubin 0.3, Aspartate Amino Transf (AST/SGOT) 23, Alanine Aminotransferase (ALT/SGPT) 10L, Alkaline Phosphatase 130H, C-Reactive Protein, Quantitative 4.9H, Pro-B- Type Natriuretic Peptide 88931D, Total Protein 6.4, Albumin 2.3L, Globulin 4.1, Albumin/Globulin Ratio 0.6L Height (Feet): 5 Height (Inches): 4.00 Weight (Pounds): 192 General Appearance: alert EENT: normal ENT inspection Neck: supple Cardiovascular: normal rate Respiratory/Chest: decreased breath sounds Abdomen: normal bowel sounds, non tender, soft Extremities: non-tender Lawrence Humphreys MD Nov 15, 2019 10:01
--- NOTE | 2019-11-15 10:16 | Pulmonology Progress Note ---
Reema Hanna [employer] 11/15/19 1016: Subjective ROS Limited/Unobtainable: No Constitutional: Denies: no symptoms, fever, chills, fatigue, anorexia, drenching sweats, other Allergies: Coded Allergies: PENICILLINS (Verified Allergy, Unknown, 10/25/19) tolerated Ceftriaxone All Systems: reviewed and negative except above Subjective transferred to MS floor s/p perm HD catheter placement 11/07 s/p PEG 11/08 awake, alert, afebrile on 2L O2 via NC BiPAP at HS but refused BiPAP for thew last few nights no signs of resp distress pulled out G tube, swallow eval pending for this am NGT for now Objective Last 24 Hour Vital Signs Date Time Temp Pulse Resp B/P (MAP) Pulse Ox O2 Delivery O2 Flow Rate FiO2 11/15/19 09:14 144/75 11/15/19 09:13 84 144/75 11/15/19 09:13 84 144/75 11/15/19 09:00 Nasal Cannula 2.0 Nasal Cannula 2.0 11/15/19 08:00 97.7 84 20 144/75 (98) 97 11/15/19 04:00 97.7 81 20 152/68 (96) 96 11/15/19 00:00 97.7 77 20 138/62 (87) 96 11/14/19 22:09 149/59 11/14/19 22:09 79 149/59 11/14/19 21:00 Nasal Cannula 2.0 11/14/19 21:00 96 Nasal Cannula 2.0 28 11/14/19 20:00 97.7 79 20 149/59 (89) 97 11/14/19 16:00 96.9 20 144/60 (88) 97 11/14/19 12:00 97.0 20 153/72 (99) 100 Intake and Output 11/14/19 11/15/19 19:00 07:00 Intake Total 60 ml 340 ml Output Total 100 ml Balance -40 ml 340 ml Free Water 100 ml Tube Feeding 60 ml 240 ml Output Urine Total 100 ml Objective General Appearance: no apparent distress, Estonian speaking awake, more alert and responsive male, Lines, tubes and drains: R chest tunneled HD catheter , R femoral temporal HD catheter HEENT: normocephalic, atraumatic, anicteric, mucous membranes moist, O2 2 L via NC, NGT Respiratory/Chest: few scattered crackles, no exp wheezing, Cardiovascular/Chest: normal rate, SR Abdomen: normal bowel sounds, non tender, soft Extremities: partially amputated BL foot/metatarsal Skin Exam: warm/dry Neurologic: abnormal gait, awake, more responsive responsive, Musculoskeletal: atrophy BLE Laboratory Tests 11/14/19 11:28: POC Whole Blood Glucose [Pending] 11/15/19 05:50: White Blood Count 8.3, Red Blood Count 2.95L, Hemoglobin 8.8L, Hematocrit 30.0L , Mean Corpuscular Volume 102H, Mean Corpuscular Hemoglobin 29.9, Mean Corpuscular Hemoglobin Concent 29.4L, Red Cell Distribution Width 16.2H, Platelet Count 290, Mean Platelet Volume 6.4L, Neutrophils (%) (Auto) 83.5H, Lymphocytes (%) (Auto) 11.0L, Monocytes (%) (Auto) 3.7, Eosinophils (%) (Auto) 1.2, Basophils (%) (Auto) 0.6, Sodium Level 141, Potassium Level 4.8, Chloride Level 102, Carbon Dioxide Level 35H, Anion Gap 4L, Blood Urea Nitrogen 67H, Creatinine 2.8H, Estimat Glomerular Filtration Rate 21.9, Glucose Level 170H, Calcium Level 9.1, Phosphorus Level 3.9, Magnesium Level 2.7H, Total Bilirubin 0.3, Aspartate Amino Transf (AST/SGOT) 23, Alanine Aminotransferase (ALT/SGPT) 10L, Alkaline Phosphatase 130H, C-Reactive Protein, Quantitative 4.9H, Pro-B- Type Natriuretic Peptide 57169J, Total Protein 6.4, Albumin 2.3L, Globulin 4.1, Albumin/Globulin Ratio 0.6L Current Medications Medications (Trade) Dose Ordered Sig/Cammy Route PRN Reason Start Time Stop Time Status Last Admin Dose Admin Acetaminophen (Tylenol) 650 mg Q6H PRN NG Pain 3-5 11/14/19 12:00 12/02/19 00:00 Amlodipine Besylate (Norvasc) 10 mg DAILY NG 11/15/19 09:00 11/25/19 08:59 11/15/19 09:13 Apixaban (Eliquis) 2.5 mg BID NG 11/14/19 18:00 02/08/20 17:59 11/15/19 09:13 Atorvastatin Calcium (Lipitor) 10 mg BEDTIME NG 11/14/19 21:00 01/21/20 20:59 11/14/19 22:09 Chlorhexidine Gluconate (Yi-Hex 2%) 1 applic DAILY@1999 TOPIC 11/14/19 20:00 01/31/20 19:59 11/14/19 23:00 Clonidine HCl (Catapres TTS-1) 1 patch QWEEK TDERMAL 11/19/19 19:00 02/10/20 18:59 Dextrose (Dextrose 50%) 25 ml Q30M PRN IV Hypoglycemia 11/14/19 10:45 01/20/20 21:44 Dextrose (Dextrose 50%) 50 ml Q30M PRN IV Hypoglycemia 11/14/19 10:45 01/20/20 21:44 Docusate Sodium (Colace) 100 mg THREE TIMES A DAY NG 11/14/19 13:00 12/02/19 17:59 11/15/19 09:12 Doxazosin Mesylate (Cardura) 2 mg DAILY ORAL 11/15/19 09:00 12/15/19 08:59 11/15/19 09:14 Epoetin William (Epoetin William(ESRD on dialysis)) 10,000 unit FRI- SUBQ 11/15/19 21:00 02/01/20 20:59 Haloperidol (Haldol) 5 mg Q12H PRN NG Agitation 11/14/19 12:00 12/26/19 00:00 Haloperidol Lactate (Haldol) 5 mg Q6H PRN IM Agitation 11/14/19 12:00 12/10/19 00:00 11/14/19 20:54 Insulin Aspart (NovoLOG) Q6HR SUBQ 11/14/19 12:00 01/31/20 06:29 11/15/19 05:50 Lactulose (Cephulac) 10 gm BID NG 11/14/19 18:00 12/01/19 08:59 11/15/19 09:12 Lansoprazole (Prevacid) 30 mg DAILY NG 11/15/19 09:00 12/11/19 08:59 11/15/19 09:13 Levothyroxine Sodium (Synthroid) 75 mcg DAILY@0630 NG 11/15/19 06:30 12/04/19 06:29 11/15/19 05:48 Lisinopril (ZestriL) 20 mg Q12HR NG 11/14/19 21:00 12/13/19 20:59 11/15/19 09:14 Metoprolol Tartrate (Lopressor) 50 mg Q12HR NG 11/15/19 09:00 02/13/20 08:59 11/15/19 09:13 Polyethylene Glycol (Miralax) 17 gm BEDTIME NG 11/14/19 21:00 12/01/19 20:59 11/14/19 22:08 Sennosides (Senokot) 8.6 mg HSPRN PRN NG Constipation 11/14/19 12:00 12/14/19 11:59 Assessment/Plan Assessment/Plan ASSESSMENT Acute hypoxemic hypercapnic respiratory failure requiring BiPAP Acute metabolic encephalopathy likely due to hypoglycemia Diabetes mellitus with initial hypoglycemia Probably pneumonia , s/p Rx Aspiration risk Dysphagia , s/p PEG Acute kidney injury on chronic kidney disease, requiring start of HD 10/30 Severe anemia requiring blood transfusion Metabolic acidosis Electrolyte imbalance :hyponatremia, hyperkalemia HTN with HTN urgency Hematuria 2 to pt pulled off his Lyles catheter Possibly DAYANA PLAN OF CARE tele BiPAP at HS and prn currently on O2 2 L via NC titrate O2, pulm toilet patient likely has DAYANA. recommend sleep study as OP CXR 11/02 -> Stable slightly increased bilateral pleural effusions. Otherwise little manager exchange 3 days 10/21 and 10/24 rapid COVID NGT, abx as per ID recs -> Ceftriaxone , completed 10/30 ; s/p Vanco , completed Rx for PNA 7 days, remains afebrile no leucocytosis BCX 10/21 NGTD UCX NGT SCX if able Venous Duplex BLE 10/25 -> NGT CT head revealed bilateral mastoid disease; a new finding ID recommended ENT eval- pending- per primary team remains afebrile, asymptomatic on HD- started 10/30 renal US ->Mildly atrophic kidneys. No hydronephrosis or nephrolithiasis. monitor volumes, renal parameters, lytes, correct as needed fup with nephro recs s/p placement of permanent HD catheter R chest 11/07 s/p removal of temporary HD catheter by surgeon ECHO with pEF 55-60% rate control with BB, now added, HR stable on chronic a/c , was on hold for PEG, resume Eliquis swallow eval with aspiration risk diet texture as per ST recs with strict asp precautions and assistance with meals now NGT repeat BSSE 11/04 -> failed, recommended nonoral feeding started on NGT feeding strict aspiration precautions s/p PEG 11/08 asp precautions, GT site care, monitor tolerance of TF now pulled out GT , needs replacement swallow eval for this am NGT for now GI follows may need another PEG if fails swallow eval AMS 10/[address] head negative, off sedatives ammonia WNL NGT inserted for meds as per nephro recs ( prior to G tube) NEED NEURO EVAL-per primary AMS improved to baseline psych follows HgA1c -6.1 hold oral anti-glycemic SSI prn sensitive initial AMS was most likely due to episode of hypoglycemia CT head NGT for acute ICP -done x 2 BP management with CCB BB and Hydralazine prn for BP spikes monitor HH with goal to keep Hgb above 7 stool OB anemia w/up noted , heme on board s/p 1 dose of Venofer on EPO hematuria resolved, Hgb at baseline GI prophayxlis supportive care WILL NEED TRILOGY VENT TO BE ARRANGED ON DISCHARGE ( pt needs BIPAP at HS and prn ) declined BiPAP for few nights, but was compliant prior, need reenforcement to use BiPAP at HS also at this time feels better and feels that he does not need it, however, pt likely with DAYANA, chronic hypercapnia and not using BiPAP at night will eventually lead to resp distress and worsening hypercapnia case management aware, work in progress case discussed and evaluated by supervising physician Leoncio Galan MD 11/15/19 1101: Subjective Allergies: Coded Allergies: PENICILLINS (Verified Allergy, Unknown, 10/25/19) tolerated Ceftriaxone Assessment/Plan Assessment/Plan Patient seen and examined with [employer]. Agree with above A&P as it reflects our joint deliberations. Reema Hanna [employer] Nov 15, 2019 10:16 Leoncio Galan MD Nov 15, 2019 11:01
[2019-11-15 12:00] VITALS: BP 140/79
--- NOTE | 2019-11-15 12:18 | Surgery Progress Note ---
Surgery Progress Note Subjective Procedure Performed removal Right femoral temporary hemodialysis catheter Symptoms: improved, tolerating diet, voiding well, passing flatus, BM Objective Last 24 Hour Vital Signs Date Time Temp Pulse Resp B/P (MAP) Pulse Ox O2 Delivery O2 Flow Rate FiO2 11/15/19 12:00 98.0 87 20 140/79 (99) 98 11/15/19 09:14 144/75 11/15/19 09:13 84 144/75 11/15/19 09:13 84 144/75 11/15/19 09:00 Nasal Cannula 2.0 Nasal Cannula 2.0 11/15/19 08:00 97.7 84 20 144/75 (98) 97 11/15/19 07:00 97 Nasal Cannula 2.0 28 11/15/19 04:00 97.7 81 20 152/68 (96) 96 11/15/19 00:00 97.7 77 20 138/62 (87) 96 11/14/19 22:09 149/59 11/14/19 22:09 79 149/59 11/14/19 21:00 Nasal Cannula 2.0 11/14/19 21:00 96 Nasal Cannula 2.0 28 11/14/19 20:00 97.7 79 20 149/59 (89) 97 11/14/19 16:00 96.9 20 144/60 (88) 97 I&O Intake and Output 11/14/19 11/15/19 19:00 07:00 Intake Total 60 ml 340 ml Output Total 100 ml Balance -40 ml 340 ml Free Water 100 ml Tube Feeding 60 ml 240 ml Output Urine Total 100 ml Dressing: dry Wound: clean Cardiovascular: RSR Respiratory: clear, decreased breath sounds Abdomen: soft, non-tender, present bowel sounds, non-distended Extremities: edema, no tenderness, no cyanosis Laboratory Tests Test 11/14/19 18:41 11/15/19 05:50 11/15/19 11:58 POC Whole Blood Glucose 173 MG/DL (74-106) H 156 MG/DL (74-106) H White Blood Count 8.3 K/UL (4.8-10.8) Red Blood Count 2.95 M/UL (4.70-6.10) L Hemoglobin 8.8 G/DL (14.2-18.0) L Hematocrit 30.0 % (42.0-52.0) L Mean Corpuscular Volume 102 FL (80-99) H Mean Corpuscular Hemoglobin 29.9 PG (27.0-31.0) Mean Corpuscular Hemoglobin Concent 29.4 G/DL (32.0-36.0) L Red Cell Distribution Width 16.2 % (11.6-14.8) H Platelet Count 290 K/UL (150-450) Mean Platelet Volume 6.4 FL (6.5-10.1) L Neutrophils (%) (Auto) 83.5 % (45.0-75.0) H Lymphocytes (%) (Auto) 11.0 % (20.0-45.0) L Monocytes (%) (Auto) 3.7 % (1.0-10.0) Eosinophils (%) (Auto) 1.2 % (0.0-3.0) Basophils (%) (Auto) 0.6 % (0.0-2.0) Sodium Level 141 MMOL/L (136-145) Potassium Level 4.8 MMOL/L (3.5-5.1) Chloride Level 102 MMOL/L (98-107) Carbon Dioxide Level 35 MMOL/L (21-32) H Anion Gap 4 mmol/L (5-15) L Blood Urea Nitrogen 67 mg/dL (7-18) H Creatinine 2.8 MG/DL (0.55-1.30) H Estimat Glomerular Filtration Rate 21.9 mL/min (>60) Glucose Level 170 MG/DL (74-106) H Calcium Level 9.1 MG/DL (8.5-10.1) Phosphorus Level 3.9 MG/DL (2.5-4.9) Magnesium Level 2.7 MG/DL (1.8-2.4) H Total Bilirubin 0.3 MG/DL (0.2-1.0) Aspartate Amino Transf (AST/SGOT) 23 U/L (15-37) Alanine Aminotransferase (ALT/SGPT) 10 U/L (12-78) L Alkaline Phosphatase 130 U/L (46-116) H C-Reactive Protein, Quantitative 4.9 mg/dL (0.00-0.90) H Pro-B-Type Natriuretic Peptide 81237 pg/mL (0-125) H Total Protein 6.4 G/DL (6.4-8.2) Albumin 2.3 G/DL (3.4-5.0) L Globulin 4.1 g/dL Albumin/Globulin Ratio 0.6 (1.0-2.7) L Plan Problems: (1) Hypercarbia (2) Pleural effusion (3) Chronic renal failure (4) Anemia (5) CHF (congestive heart failure) (6) Bacteremia (7) Cellulitis Assessment & Plan: improving no active bleeding reyes okay will monitor (8) Hypoglycemia (9) Hyponatremia (10) ATN (acute tubular necrosis) (11) Metabolic acidosis Assessment & Plan: DYSPHAGIA RISK FACTORS INCLUDE: RESPIRATORY WELL MULTIPLE MEDICAL COMPLICATIONS, SHORTNESS OF BREATH, WORK OF BREATHING, DECREASED MENTATION, HX OF SUBOPTIMAL P.O. INTAKE, LETHARGY (DIFFICULTY SUSTAINING WAKEFULNESS) , CLINICAL HISTORY: AMS CURRENT CXR: Indication: Shortness of breath Technique: One view of the chest Comparison: 10/31/2019 Findings: Interim placement of nasogastric tube, tip projected at the level of the gastric body. This was also demonstrated on 11/01/2019 abdominal radiograph. Bilateral hazy opacity appears similar to or perhaps slightly increased from the prior study. Generalized mild interstitial prominence persists. 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 TRIALS OF ICE CHIPS, ONE AT A TIME. LINGUAL SIZE PRESENTS ENLARGED. PATIENT PERSISTENTLY MOUTH BREATHING. WHEN PRESENTED WITH ONE ICE CHIP HE MANIPULATED IT, ALLOWED IT TO MELT ON HIS TONGUE AND AFTER A MODERATE DELAY, HE SWALLOWED. RR CHANGES FROM 18 BREATHS PER MINUTE TO 25 BREATHS PER MINUTE ALONG WITH WORK OF BREATHING. WHEN ASKED TO SAY "AH" POST SWALLOW, PATIENTS VOCAL QUALITY WAS WET/GURGLY. HYOLARYNGEAL EXCURSION PRESENTED MODERATELY DECREASED. PATIENT ESSENTIALLY NON/VERBAL THIS AFTERNOON. HIGH ASPIRATION RISK. HIS RISK FOR CONSISTENT/STABLE/SUFFICIENT P.O. INTAKE TO SUPPORT NUTRITION/HYDRATION NEEDS. RECOMMENDATIONS: 1. CONTINUE NON/ORAL FEEDING MANAGEMENT PRIMARY SOURCE OF NUTRITION/ HYDRATION/MEDICATION 2. NPO STATUS 3. RE/ORDER SWALLOW EVALUATION IF/WHEN PATIENTS MEDICAL STATUS STABILIZES. DAILY ESTIMATED NEEDS: Needs based on Critical care, wound 71kg abw 22-28 kcals/kg 3404-3977 total kcals 1.25-2 g protein/kg 88-154 g total protein 25-30 mL/kg 1241-2848 total fluid mLs NUTRITION DIAGNOSIS: 1) Swallowing difficulty r/t respiratory status as evidenced by pt is vent dep via trach, GT dep. 2) Increased kcal/prot needs R/T wound healing as evidenced by pt admitted w/ multiple wounds including full thickness x3, refer to wound care eval for full report. CURRENT TF:NPO ENTERAL NUTRITION RECOMMENDATIONS: Glucerna 1.2 @60ml/hr x24 hrs + Prosource 1pkt QD to provide 1440ml, 1728 kcal, 86g +11g pro, 1159ml free H2o - As medically appropriate, initiate Glucerna 1.2 @ 30ml/hr x 6hrs - Advance 10ml q 4-6 hrs as tolerated to goal rate - Add Prosource 1pkt daily to better meet protein needs - HOB over 30 degrees/ water flush 120ml q 4hrs PARENTERAL NUTRITION RECOMMENDATIONS TPN Comment: Rec TPN to meet est needs with anticipated prolonged NPO status ADDITIONAL RECOMMENDATIONS: 1) Calibrated bedscale wt 2) Rec adding D5 IVF while pt is NPO to prevent hypoglycemia 3) Monitor lytes w/ TF, replete as needed 4) Wound healing: Vit C 250mg BID + SILVESTRE BID w/ TF orders 5) Monitor need for NISS w/ TF: h/o DM 6) Consider TPN w/ anticipated prolonged NPO status Hardware: Nasogastric tube terminates in the region of the stomach. Distal portion of a central venous catheter terminates in the junction of the SVC and right atrium. Abdomen: Nonspecific partially visualized bowel gas pattern. No free air. Bones: Normal. Soft tissues: Normal. Visualized chest: Hazy and interstitial opacities and right greater than left lungs. Atherosclerotic calcifications of the aorta. Borderline size of the cardiac silhouette. IMPRESSION: Nasogastric tube terminates in the region of the stomach. (12) Pneumonia (13) Cellulitis of foot Assessment & Plan: Pt presented on admission with Bilat TMA. Pressure injuries both heels. Stable dry necrosis note to Plantar /lateral L TMA. L Heel is boggy with non- Blanchable erythema. . R Heel Boggy with Non-Blanchable erythema.Haemosiderin with Xerosis skin noted to R and L lower ext. Darker skin tone without erythema , induration or fluctuance Medial L Malleolus. Darker skin tone without erythema or induration noted to sacrum. Tx.Plan: Apply Moisture Barrier Paste to Sacrum. Cover with Optifoam drsg.Change every 3 days and prn. Apply Betadine to eschar plantar/lateral L TMA . Cover with Optifoam drsg. Change every 3 days and prn. Apply Cavilon Skin Barrier to both heels and Malleoli. Cover each site with Optifoam drsg. Change every 7days and prn. Reposition at least every 2hours or as tolerated. Off load heels with pillow.Hx prior amputation prior MRI and plain films reviewed wounds stable and local care being provided no abscess noted cont with dressings elevate heels with pillow turn q2h off load pressure air mattress will follow with recs thank you (14) Osteomyelitis (15) History of hypertension (16) Renal failure (ARF), acute on chronic Assessment & Plan: HD line removed 11/09 (17) Acute encephalopathy (18) Diabetes mellitus (19) Hypertension (20) Cholelithiasis Assessment & Plan: US reviewed exam benign asymptomatic cholelithiasis alk phos mild elevated lfts improved trend labs no acute surgical intervention planned Liver: Liver measures 14.8 cm. No intrahepatic bile duct dilation. Gallbladder: Small stone in the gallbladder. No significant gallbladder wall thickening or pericholecystic fluid. Negative sonographic Bianchi's sign. Common bile duct: Normal common bile duct measuring 4.5 mm. No stones. No dilation. Pancreas: Pancreas is not visualized due to overlying bowel gas. Kidneys: Right kidney measures 9.1 cm in length. No hydronephrosis or stone. Left kidney not visualized due to patient's body habitus. Spleen: Spleen measures 9.4 cm. No focal lesion. Aorta: Visualized portions of the aorta are grossly unremarkable. The mid and distal portions are obscured by bowel gas. Inferior vena cava: Unremarkable. Free fluid: No ascites. Tubes, lines and devices: Reyes catheter in a decompressed bladder. IMPRESSION: Small stone in the gallbladder. No significant gallbladder wall thickening or pericholecystic fluid. Negative sonographic Bianchi's sign. Mariusz Diehl Nov 15, 2019 12:17
--- NOTE | 2019-11-15 12:36 | Nephrology Progress Note ---
Assessment/Plan Problem List: (1) Renal failure (ARF), acute on chronic (2) Metabolic acidosis (3) Electrolyte imbalance Assessment: Hyponatremia and hyperkalemia (4) Anemia (5) CHF (congestive heart failure) Assessment 79-year-old male is admitted for hypoglycemia Patient has renal failure which appears to be acute on chronic Hyperkalemia Hyponatremia CHF, pleural effusion, pneumonia Anemia Metabolic acidosis Hypothyroidism Plan November 14: Lab reviewed. Serum creatinine danial lethargic. Is a NG tube. Doubt stone pass speech therapy for oral intake. We will continue to monitor renal parameters. Review mind altering medication and adjust as possible. Continue per consultants. November 13: Labs reviewed. Serum creatinine is leveling off. No dialysis needed at this time. Patient has NG tube. Due for swallowing study. We will continue to monitor renal parameters. He may not need any further dialysis treatment as the acute renal failure appears to have been resolved. Will adjust blood pressure medication. Continue per orders. November 12: Lab works are reviewed. Renal parameters stable. Dialysis as needed. Medication list reviewed. November 11: Patient last dialyzed November 09. Patient pulled out the GT tube. Slight bleeding from the site observed. GI to reinsert. Zestril added for BP control. Next hemodialysis tomorrow. November 10: Patient was dialyzed yesterday. Labs reviewed. Stable from renal standpoint of view. November 09: Patient due for dialysis today due to incomplete dialysis yesterday as a result of catheter malfunction. The femoral catheter was already removed this morning. Labs reviewed. Continue current management. November 08: Dialysis attempted through the permacath which was put in yesterday by IR. Due to high catheter pressure , dialysis was held and PTAse administered. Dialysis will be tried again tomorrow. Will check labs tomorrow. November 07: Patient due for tunneled catheter insertion today. Will order dialysis tomorrow. Continue to monitor renal parameters. Labs and medications reviewed. November 06: Patient due for tunnel catheter insertion November 07. Serum creatinine is rising. Labs reviewed. Continue per consultants. November 05: Last dialysis November 03. Eliquis on hold. Due tunneled catheter insertion on November 07. Labs are reviewed. Continue current management. November 04: Dialyzed yesterday. Due for insertion of tunneled catheter today. May need to hold Eliquis and reschedule catheter insertion on Friday. Will monitor renal parameters in the meantime. November 03: Dialyzed this morning. Stable from renal standpoint of view. Due for insertion of tunneled catheter tomorrow. November 02: Dialyzed yesterday. Will DC IV fluid. Dialysis tomorrow. Potassium supplement given. Per orders. November 01: Patient currently being dialyzed. Tolerating well. Labs will be reviewed. Continue per consultants. October 31: Patient was dialyzed yesterday. Clinically doing better. We will continue to monitor renal parameters. Dialysis as needed. October 30: Serum creatinine rising. Patient due to have a temporary dialysis catheter and due for dialysis today. Will continue to follow-up renal parameters. Patient remains full code. October 29: Serum creatinine rising. Serum creatinine 4.5 today. Calculated creatinine clearance is 12. Kidney ultrasound ordered yesterday results were reviewed. Patient appears to have acute renal failure due to underlying sepsis and nephrotoxic medications. Patient requires dialysis treatment. Ordered to obtain consent from the responsible alliance party. Will communicate with PMD and or he is coverage. October 28: Serum creatinine higher to 4.2 today. Blood pressure appears more stable. In view of worsening renal failure, will order stat kidney ultrasound and urine studies. Continue to monitor renal parameters. Patient is full code. Worsening renal parameters may lead to hemodialysis treatment. October 27: Patient pulled out the Lyles catheter. Serum creatinine went up to 3.8. Blood pressure somewhat low. Heart rate in 50s. Will discontinue Coreg. We will continue to monitor renal parameters. October 26: Serum creatinine lower again today. Will abort the dialysis plan. Continue per consultants. Continue to monitor renal parameters. Medication list reviewed. October 25: Clinically improving. Serum creatinine lower. Urine output increased. No dialysis planned at this time. Continue per consultants. October 24: Patient's respiratory status somewhat improved. Serum creatinine down to 3.9. Urinary output somewhat increased. Will hold placement of dialysis catheter at this time. Blood pressure medication adjusted. Continue to monitor renal parameters. Per orders. October 23: Patient remains on BiPAP. More Kayexalate ordered. Will consider hemodialysis to correct fluid overload and hyperkalemia and acidosis. Will discuss with PMD. Meanwhile IV Synthroid started. Discussed with BENJAMIN Aguirre Patient already transfused 1 unit for severe anemia previously Will initiate Epogen 10,000 units subcutaneously 1 dose of IV iron Venofer 200 g IV Kayexalate for hyperkalemia as needed 2D echocardiogram ordered, ejection fraction is reported normal Kidney ultrasound ordered: Kidneys: Right kidney measures 9.1 cm in length. No hydronephrosis or stone. Left kidney not visualized due to patient's body habitus. Avoid nephrotoxic's Monitor renal parameters Will hold insulin and hypoglycemic agents until hypoglycemia is reasonably resolved Subjective ROS Limited/Unobtainable: No Constitutional: Reports: malaise, other Objective Objective Last 24 Hour Vital Signs Date Time Temp Pulse Resp B/P (MAP) Pulse Ox O2 Delivery O2 Flow Rate FiO2 11/15/19 12:00 98.0 87 20 140/79 (99) 98 11/15/19 09:14 144/75 11/15/19 09:13 84 144/75 11/15/19 09:13 84 144/75 11/15/19 09:00 Nasal Cannula 2.0 Nasal Cannula 2.0 11/15/19 08:00 97.7 84 20 144/75 (98) 97 11/15/19 07:00 97 Nasal Cannula 2.0 28 11/15/19 04:00 97.7 81 20 152/68 (96) 96 11/15/19 00:00 97.7 77 20 138/62 (87) 96 11/14/19 22:09 149/59 11/14/19 22:09 79 149/59 11/14/19 21:00 Nasal Cannula 2.0 11/14/19 21:00 96 Nasal Cannula 2.0 28 11/14/19 20:00 97.7 79 20 149/59 (89) 97 11/14/19 16:00 96.9 20 144/60 (88) 97 Intake and Output 11/14/19 11/15/19 19:00 07:00 Intake Total 60 ml 340 ml Output Total 100 ml Balance -40 ml 340 ml Free Water 100 ml Tube Feeding 60 ml 240 ml Output Urine Total 100 ml Laboratory Tests 11/14/19 18:41: POC Whole Blood Glucose 173H 11/15/19 05:50: White Blood Count 8.3, Red Blood Count 2.95L, Hemoglobin 8.8L, Hematocrit 30.0L , Mean Corpuscular Volume 102H, Mean Corpuscular Hemoglobin 29.9, Mean Corpuscular Hemoglobin Concent 29.4L, Red Cell Distribution Width 16.2H, Platelet Count 290, Mean Platelet Volume 6.4L, Neutrophils (%) (Auto) 83.5H, Lymphocytes (%) (Auto) 11.0L, Monocytes (%) (Auto) 3.7, Eosinophils (%) (Auto) 1.2, Basophils (%) (Auto) 0.6, Sodium Level 141, Potassium Level 4.8, Chloride Level 102, Carbon Dioxide Level 35H, Anion Gap 4L, Blood Urea Nitrogen 67H, Creatinine 2.8H, Estimat Glomerular Filtration Rate 21.9, Glucose Level 170H, Calcium Level 9.1, Phosphorus Level 3.9, Magnesium Level 2.7H, Total Bilirubin 0.3, Aspartate Amino Transf (AST/SGOT) 23, Alanine Aminotransferase (ALT/SGPT) 10L, Alkaline Phosphatase 130H, C-Reactive Protein, Quantitative 4.9H, Pro-B- Type Natriuretic Peptide 95486B, Total Protein 6.4, Albumin 2.3L, Globulin 4.1, Albumin/Globulin Ratio 0.6L 11/15/19 11:58: POC Whole Blood Glucose 156H Height (Feet): 5 Height (Inches): 4.00 Weight (Pounds): 192 General Appearance: no apparent distress, lethargic EENT: other - NG tube in place Cardiovascular: tachycardia Respiratory/Chest: decreased breath sounds Abdomen: distended Objective No change Naveed Vanegas MD Nov 15, 2019 12:36
[2019-11-15 16:00] VITALS: BP 139/82
--- NOTE | 2019-11-15 19:28 | Cardiology Progress Note ---
Assessment/Plan Assessment/Plan 1. Sinus tachycardia, resolved, continue metoprolol. 2. Acute HFpEF with elevated BNP, 2D echocardiography shows normal LV systolic with LVEF of about 55% but e/o increased intracardiac filling pressure. BP control, mild diuretics. 3. Multiple risk factors for coronary artery disease include diabetes mellitus and hypertension. 4. History of peripheral vascular disease, status post partial foot amputation. 5. Acute on chronic renal failure. 6. Anemia of chronic disease. 7. HTN, stage I, continue amlodipine, lisinopril and metoprolol. Will optimize doxazosin. Subjective Subjective Transferred to the med surg unit. No cardiac events reported. Objective Last 24 Hour Vital Signs Date Time Temp Pulse Resp B/P (MAP) Pulse Ox O2 Delivery O2 Flow Rate FiO2 11/15/19 16:00 98.4 86 20 139/82 (101) 99 11/15/19 12:00 98.0 87 20 140/79 (99) 98 11/15/19 09:14 144/75 11/15/19 09:13 84 144/75 11/15/19 09:13 84 144/75 11/15/19 09:00 Nasal Cannula 2.0 Nasal Cannula 2.0 11/15/19 08:00 97.7 84 20 144/75 (98) 97 11/15/19 07:00 97 Nasal Cannula 2.0 28 11/15/19 04:00 97.7 81 20 152/68 (96) 96 11/15/19 00:00 97.7 77 20 138/62 (87) 96 11/14/19 22:09 149/59 11/14/19 22:09 79 149/59 11/14/19 21:00 Nasal Cannula 2.0 11/14/19 21:00 96 Nasal Cannula 2.0 28 11/14/19 20:00 97.7 79 20 149/59 (89) 97 Intake and Output 11/14/19 11/15/19 19:00 07:00 Intake Total 60 ml 380 ml Output Total 100 ml Balance -40 ml 380 ml Free Water 100 ml Tube Feeding 60 ml 280 ml Output Urine Total 100 ml 2D Echo: LVEF 55%, Pseudo-normal LV physio grade II LV Diastolic fxn, RVSP 22, MD Laboratory Tests Test 11/15/19 05:50 11/15/19 11:58 White Blood Count 8.3 K/UL (4.8-10.8) Red Blood Count 2.95 M/UL (4.70-6.10) L Hemoglobin 8.8 G/DL (14.2-18.0) L Hematocrit 30.0 % (42.0-52.0) L Mean Corpuscular Volume 102 FL (80-99) H Mean Corpuscular Hemoglobin 29.9 PG (27.0-31.0) Mean Corpuscular Hemoglobin Concent 29.4 G/DL (32.0-36.0) L Red Cell Distribution Width 16.2 % (11.6-14.8) H Platelet Count 290 K/UL (150-450) Mean Platelet Volume 6.4 FL (6.5-10.1) L Neutrophils (%) (Auto) 83.5 % (45.0-75.0) H Lymphocytes (%) (Auto) 11.0 % (20.0-45.0) L Monocytes (%) (Auto) 3.7 % (1.0-10.0) Eosinophils (%) (Auto) 1.2 % (0.0-3.0) Basophils (%) (Auto) 0.6 % (0.0-2.0) Sodium Level 141 MMOL/L (136-145) Potassium Level 4.8 MMOL/L (3.5-5.1) Chloride Level 102 MMOL/L (98-107) Carbon Dioxide Level 35 MMOL/L (21-32) H Anion Gap 4 mmol/L (5-15) L Blood Urea Nitrogen 67 mg/dL (7-18) H Creatinine 2.8 MG/DL (0.55-1.30) H Estimat Glomerular Filtration Rate 21.9 mL/min (>60) Glucose Level 170 MG/DL (74-106) H Calcium Level 9.1 MG/DL (8.5-10.1) Phosphorus Level 3.9 MG/DL (2.5-4.9) Magnesium Level 2.7 MG/DL (1.8-2.4) H Total Bilirubin 0.3 MG/DL (0.2-1.0) Aspartate Amino Transf (AST/SGOT) 23 U/L (15-37) Alanine Aminotransferase (ALT/SGPT) 10 U/L (12-78) L Alkaline Phosphatase 130 U/L (46-116) H C-Reactive Protein, Quantitative 4.9 mg/dL (0.00-0.90) H Pro-B-Type Natriuretic Peptide 25095 pg/mL (0-125) H Total Protein 6.4 G/DL (6.4-8.2) Albumin 2.3 G/DL (3.4-5.0) L Globulin 4.1 g/dL Albumin/Globulin Ratio 0.6 (1.0-2.7) L POC Whole Blood Glucose 156 MG/DL (74-106) H Objective HEENT: Atraumatic and normocephalic. Anicteric. Pupils are equal, round, and reactive to light and accommodation. Extraocular muscles intact. NECK: JVP less than 5 cm. No carotid bruit. Carotid upstroke is 2+ bilaterally. CARDIOVASCULAR: Normal S1, S2. Regular rate and rhythm. No murmurs, gallops, or rubs. LUNGS: Bilateral rhonchi. ABDOMEN: Soft, nontender, and nondistended. No hepatosplenomegaly. Positive bowel sounds. EXTREMITIES: Bilateral partial foot amputations. Chris Hanley MD Nov 15, 2019 19:28
[2019-11-15 20:00] VITALS: BP 122/68
[2019-11-15] MEDS: Dyna-Hex 2% Top Sol 2oz TOPIC SCH (20:21)
[2019-11-15] MEDS: Epoetin Alfa-EPBX(ESRD on dialysis)10,000 unit/ml vial SUBQ SCH (20:22)
[2019-11-15] MEDS: Miralax 17gm pkt NG SCH (20:22)
[2019-11-15] MEDS: Lisinopril 20mg tab NG SCH (20:22)
--- NOTE | 2019-11-15 23:00 | Psych Consult Progress Note ---
Psychiatry Progress Note Psychiatry Progress Note Subjective the pts mental condition is unchanged confused agitations disoriented Medications Current Medications Medications (Trade) Dose Ordered Sig/Cammy Route PRN Reason Start Time Stop Time Status Last Admin Dose Admin Acetaminophen (Tylenol) 650 mg Q6H PRN NG Pain 3-5 11/14/19 12:00 12/02/19 00:00 Amlodipine Besylate (Norvasc) 10 mg DAILY NG 11/15/19 09:00 11/25/19 08:59 11/15/19 09:13 Atorvastatin Calcium (Lipitor) 10 mg BEDTIME NG 11/14/19 21:00 01/21/20 20:59 11/15/19 20:21 Chlorhexidine Gluconate (Yi-Hex 2%) 1 applic DAILY@1999 TOPIC 11/14/19 20:00 01/31/20 19:59 11/15/19 20:21 Clonidine HCl (Catapres TTS-1) 1 patch QWEEK TDERMAL 11/19/19 19:00 02/10/20 18:59 Dextrose (Dextrose 50%) 25 ml Q30M PRN IV Hypoglycemia 11/14/19 10:45 01/20/20 21:44 Dextrose (Dextrose 50%) 50 ml Q30M PRN IV Hypoglycemia 11/14/19 10:45 01/20/20 21:44 Docusate Sodium (Colace) 100 mg THREE TIMES A DAY NG 11/14/19 13:00 12/02/19 17:59 11/15/19 17:07 Doxazosin Mesylate (Cardura) 2 mg DAILY ORAL 11/15/19 09:00 12/15/19 08:59 11/15/19 09:14 Epoetin William (Epoetin William(ESRD on dialysis)) 10,000 unit FRI-FRI-FRI SUBQ 11/15/19 21:00 02/01/20 20:59 11/15/19 20:22 Haloperidol (Haldol) 5 mg Q12H PRN NG Agitation 11/14/19 12:00 12/26/19 00:00 Haloperidol Lactate (Haldol) 5 mg Q6H PRN IM Agitation 11/14/19 12:00 12/10/19 00:00 11/14/19 20:54 Insulin Aspart (NovoLOG) Q6HR SUBQ 11/14/19 12:00 01/31/20 06:29 11/15/19 17:10 Lactulose (Cephulac) 10 gm BID NG 11/14/19 18:00 12/01/19 08:59 11/15/19 17:07 Lansoprazole (Prevacid) 30 mg DAILY NG 11/15/19 09:00 12/11/19 08:59 11/15/19 09:13 Levothyroxine Sodium (Synthroid) 75 mcg DAILY@0630 NG 11/15/19 06:30 12/04/19 06:29 11/15/19 05:48 Lisinopril (PriniviL) 20 mg Q12HR NG 11/15/19 21:00 12/13/19 20:59 11/15/19 20:22 Metoprolol Tartrate (Lopressor) 50 mg Q12HR NG 11/15/19 09:00 02/13/20 08:59 11/15/19 20:22 Polyethylene Glycol (Miralax) 17 gm BEDTIME NG 11/14/19 21:00 12/01/19 20:59 11/14/19 22:08 Sennosides (Senokot) 8.6 mg HSPRN PRN NG Constipation 11/14/19 12:00 12/14/19 11:59 Neurological/Psychiatric: Denies: no symptoms, anxiety, depressed, emotional problems, headache, numbness, paresthesia, pre-existing deficit, seizure, tingling, tremors, weakness, other Allergies: Coded Allergies: PENICILLINS (Verified Allergy, Unknown, 10/25/19) tolerated Ceftriaxone Objective Data Height (Feet): 5 Height (Inches): 4.00 Weight (Pounds): 192 General Appearance: no apparent distress, lethargic Appearance: no abnormalities noted Behavior Mannerisms: good eye contact Mental Status Exam - Affect: blunted Mental Status Exam - Mood: anxious, agitated Mental Status Exam - Thought P: tangential, confusion Mental Status Exam - Thought C: delusions (specify) Mental Status Exam - Suicidal: not present Additional Comments: awake, confused, and disoriented. Mood is agitated. Affect is flat. Thought process, there is a paucity of thought content. Thought content, no suicidal or homicidal ideation. Cognition is impaired. Insight and judgment impaired. Dada Finch MD Nov 15, 2019 23:00
[2019-11-16] VITALS: BP 128/63
[2019-11-16 04:00] VITALS: BP 137/68
[2019-11-16] MEDS: NovoLOG Insulin Flexpen SUBQ SCH ×4 (05:31→23:10)
[2019-11-16 06:36] LABS: BASOPHILS % (AUTO) 0.6 % (0.0-2.0); HEMATOCRIT 29.5 % (42.0-52.0); HEMOGLOBIN 8.7 G/DL (14.2-18.0); LYMPHOCYTES % (AUTO) 15.4 % (20.0-45.0); MEAN CORPUSCULAR VOLUME 100 FL (80-99); MONOCYTES % (AUTO) 3.3 % (1.0-10.0); NEUTROPHILS % (AUTO) 79.6 % (45.0-75.0); PLATELET COUNT 263 K/UL (150-450); RED BLOOD COUNT 2.94 M/UL (4.70-6.10); RED CELL DISTRIBUTION WIDTH 15.4 % (11.6-14.8)
[2019-11-16 07:17] LABS: ALANINE AMINOTRANSFERASE 16 U/L (12-78); ALBUMIN 2.3 G/DL (3.4-5.0); ALBUMIN/GLOBULIN RATIO 0.6 (1.0-2.7); ALKALINE PHOSPHATASE 125 U/L (46-116); ANION GAP 4 mmol/L (5-15); ASPARTATE AMINO TRANSFERASE 21 U/L (15-37); BILIRUBIN,TOTAL 0.4 MG/DL (0.2-1.0); BLOOD UREA NITROGEN 79 mg/dL (7-18); CALCIUM 9.9 MG/DL (8.5-10.1); CARBON DIOXIDE 35 MMOL/L (21-32); CHLORIDE 102 MMOL/L (98-107); CREATININE 3.2 MG/DL (0.55-1.30); PHOSPHORUS 3.7 MG/DL (2.5-4.9); POTASSIUM 4.5 MMOL/L (3.5-5.1); SODIUM 141 MMOL/L (136-145)
--- NOTE | 2019-11-16 07:25 | Hematology/Onc Progress Note ---
Assessment/Plan Assessment/Plan ASSESSMENT AND RECOMMENDATIONS: # Anemia of chronic disease due to underlying chronic medical issues, multifactorial --> Anemia w/u has been reviewed. --> no evidence of hemolysis is noted, peripheral smear has been reviewed --> hgb goal is >7, transfuse as needed --> currently remains stable, occult blood negative --> hgb 8.4->8.6->8.3->8->8.2->9.2-->9.2->8.9-->8.1-->8.7>9.4-->8.7 --> some blood loss due to hematuria after inflated reyes pulled 8/6 am --> EPOGEN Started # Acute kidney injury r/o potential reversible component --> reviewed meds, those that are renally cleared removed --> as per renal recs, appreciated --> cr 3.5-->4.2 --> Hd started and dw renal # Hypertension, essential --> sbp goal is <140, consider anti-htn as needed --> currently started on hyralazine 25mg po q6h prn sbp >140 # CHF - hx of CHf --> diuresis with lasix as needed --> cardiology recs appreciated prior adm #. Leukocytosis with underlying infectionv stress reaction HISTORY --> per id and better --> for infection, ABX ctx/vanc-->off #. Bilateral lower extremity amputee, metatarsal several years ago #. Dysphagia s/p peg --> peg pulled out and now with gtube #. Hyperkalemia -- kayxelate as needed #. Agitation requires restraints #. Dvt ppx scds --> apixaban->off for catheter placement 11/07 The time the note was entered does not necessarily correspond to the time the patient was seen. GREATLY APPRECIATE CONSULTATION. Subjective HEENT: Denies: no symptoms, eye pain, blurred vision, tearing, double vision, ear pain, ear discharge, nose pain, nose congestion, throat pain, throat swelling, mouth pain, mouth swelling, other Cardiovascular: Denies: no symptoms, chest pain, edema, irregular heart rate, lightheadedness, palpitations, syncope, other Gastrointestinal/Abdominal: Denies: no symptoms, abdomen distended, abdominal pain, black stools, tarry stools, blood in stool, constipated, diarrhea, difficulty swallowing, nausea, poor appetite, poor fluid intake, rectal bleeding , vomiting, other Genitourinary: Denies: no symptoms, burning, discharge, frequency, flank pain, hematuria, incontinence, pain, urgency, other Neurologic/Psychiatric: Denies: no symptoms, anxiety, depressed, emotional problems, headache, numbness, paresthesia, pre-existing deficit, seizure, tingling, tremors, weakness, other Endocrine: Denies: no symptoms, excessive sweating, flushing, intolerance to cold, intolerance to heat, increased hunger, increased thirst, increased urine, unexplained weight gain, unexplained weight loss, other Hematologic/Lymphatic: Denies: no symptoms, anemia, easy bleeding, easy bruising, adenopathy, other Allergies: Coded Allergies: PENICILLINS (Verified Allergy, Unknown, 10/25/19) tolerated Ceftriaxone Subjective 10/[address] Chang, to do best to avoid haldol, continue restraints, jag salas, on nc, feeling better 10/25 still with some agitation overnight, meds reviewed, jag salas, haldol given in AM 10/26 is on 2l nc, also is on restraints, no night sweats, no bleeding 10/27 reyes catheter has been removed by patient, and resinserted, bed sheets, with bright red blood on exam 10/28 labs are noted, no bleeding, cr is worse, seen by renal, remains edematous 11/04 no major changes, hd as per renal, recs are noted, labs reviewed, pending neuro eval 11/05 is on bipap with restraints, no major changes, no bleeding, labs noted 11/06 remains agitated, is off eliquis for catheter placement for tuesday 11/07 on bipap, remains agitated, jag salas, procedure today 11/08 remains confused, no bleeding, meds noted, hgb 8.9, may need peg 11/09 on bipap, remains confused in restraints, jag salas, hgb lower 11/10 no new events, overnight bipap, now 2oxygen nc, cbc is pending, right chest pc 11/11 ngtube was pulled out, jag salas, on nc, holding dc, restraints needed 11/13 gtube was pulled out and now with ngt, no bleeding, jag salas 11/14 ng was taken out again, and reinserted by ashely rnjag rn in am 11/15 remains with ng now, for peg scheduled today, labs noted, afebrile Objective Objective Current Medications Medications (Trade) Dose Ordered Sig/Cammy Route PRN Reason Start Time Stop Time Status Last Admin Dose Admin Acetaminophen (Tylenol) 650 mg Q6H PRN NG Pain 3-5 11/14/19 12:00 12/02/19 00:00 Amlodipine Besylate (Norvasc) 10 mg DAILY NG 11/15/19 09:00 11/25/19 08:59 11/15/19 09:13 Atorvastatin Calcium (Lipitor) 10 mg BEDTIME NG 11/14/19 21:00 01/21/20 20:59 11/15/19 20:21 Chlorhexidine Gluconate (Yi-Hex 2%) 1 applic DAILY@2000 TOPIC 11/14/19 20:00 01/31/20 19:59 11/15/19 20:21 Clonidine HCl (Catapres TTS-1) 1 patch QWEEK TDERMAL 11/19/19 19:00 02/10/20 18:59 Dextrose (Dextrose 50%) 25 ml Q30M PRN IV Hypoglycemia 11/14/19 10:45 01/20/20 21:44 Dextrose (Dextrose 50%) 50 ml Q30M PRN IV Hypoglycemia 11/14/19 10:45 01/20/20 21:44 Docusate Sodium (Colace) 100 mg THREE TIMES A DAY NG 11/14/19 13:00 12/02/19 17:59 11/15/19 17:07 Doxazosin Mesylate (Cardura) 2 mg DAILY ORAL 11/15/19 09:00 12/15/19 08:59 11/15/19 09:14 Epoetin William (Epoetin William(ESRD on dialysis)) 10,000 unit FRI-FRI-FRI SUBQ 11/15/19 21:00 02/01/20 20:59 11/15/19 20:22 Haloperidol (Haldol) 5 mg Q12H PRN NG Agitation 11/14/19 12:00 12/26/19 00:00 Haloperidol Lactate (Haldol) 5 mg Q6H PRN IM Agitation 11/14/19 12:00 12/10/19 00:00 11/14/19 20:54 Insulin Aspart (NovoLOG) Q6HR SUBQ 11/14/19 12:00 01/31/20 06:29 11/15/19 23:29 Lactulose (Cephulac) 10 gm BID NG 11/14/19 18:00 12/01/19 08:59 11/15/19 17:07 Lansoprazole (Prevacid) 30 mg DAILY NG 11/15/19 09:00 12/11/19 08:59 11/15/19 09:13 Levothyroxine Sodium (Synthroid) 75 mcg DAILY@0630 NG 11/15/19 06:30 12/04/19 06:29 11/15/19 05:48 Lisinopril (PriniviL) 20 mg Q12HR NG 11/15/19 21:00 12/13/19 20:59 11/15/19 20:22 Metoprolol Tartrate (Lopressor) 50 mg Q12HR NG 11/15/19 09:00 02/13/20 08:59 11/15/19 20:22 Polyethylene Glycol (Miralax) 17 gm BEDTIME NG 11/14/19 21:00 12/01/19 20:59 11/14/19 22:08 Sennosides (Senokot) 8.6 mg HSPRN PRN NG Constipation 11/14/19 12:00 12/14/19 11:59 Last 24 Hour Vital Signs Date Time Temp Pulse Resp B/P (MAP) Pulse Ox O2 Delivery O2 Flow Rate FiO2 11/16/19 04:00 99.0 76 19 137/68 (91) 98 11/16/19 00:00 98.7 90 19 128/63 (84) 96 11/15/19 21:00 Nasal Cannula 2.0 Nasal Cannula 2.0 11/15/19 20:24 98 Nasal Cannula 2.0 28 11/15/19 20:22 127/48 11/15/19 20:22 77 127/48 11/15/19 20:00 99.8 93 19 122/68 (86) 97 11/15/19 16:00 98.4 86 20 139/82 (101) 99 11/15/19 12:00 98.0 87 20 140/79 (99) 98 11/15/19 09:14 144/75 11/15/19 09:13 84 144/75 11/15/19 09:13 84 144/75 11/15/19 09:00 Nasal Cannula 2.0 Nasal Cannula 2.0 11/15/19 08:00 97.7 84 20 144/75 (98) 97 11/15/19 07:00 97 Nasal Cannula 2.0 28 11/15/19 04:00 97.7 81 20 152/68 (96) 96 11/15/19 00:00 97.7 77 20 138/62 (87) 96 11/14/19 22:09 149/59 11/14/19 22:09 79 149/59 11/14/19 21:00 Nasal Cannula 2.0 11/14/19 21:00 96 Nasal Cannula 2.0 28 11/14/19 20:00 97.7 79 20 149/59 (89) 97 11/14/19 16:00 96.9 20 144/60 (88) 97 11/14/19 12:00 97.0 20 153/72 (99) 100 11/14/19 09:42 168/59 11/14/19 09:42 89 168/59 11/14/19 09:42 89 168/59 11/14/19 08:00 97.9 89 20 168/59 (95) 95 11/14/19 08:00 90 11/14/19 07:37 98 Nasal Cannula 2.0 28 Intake and Output 11/15/19 11/16/19 19:00 07:00 Intake Total 680 ml 320 ml Output Total 700 ml Balance -20 ml 320 ml Free Water 200 ml 120 ml Tube Feeding 480 ml 200 ml Output Urine Total 700 ml # Bowel Movements 1 Labs Test 11/13/19 08:15 11/13/19 12:08 11/13/19 17:36 11/13/19 23:42 White Blood Count 10.6 K/UL (4.8-10.8) Red Blood Count 3.25 M/UL (4.70-6.10) Hemoglobin 9.8 G/DL (14.2-18.0) Hematocrit 32.8 % (42.0-52.0) Mean Corpuscular Volume 101 FL (80-99) Mean Corpuscular Hemoglobin 30.1 PG (27.0-31.0) Mean Corpuscular Hemoglobin Concent 29.9 G/DL (32.0-36.0) Red Cell Distribution Width 16.4 % (11.6-14.8) Platelet Count 237 K/UL (150-450) Mean Platelet Volume 6.8 FL (6.5-10.1) Neutrophils (%) (Auto) % (45.0-75.0) Lymphocytes (%) (Auto) % (20.0-45.0) Monocytes (%) (Auto) % (1.0-10.0) Eosinophils (%) (Auto) % (0.0-3.0) Basophils (%) (Auto) % (0.0-2.0) Differential Total Cells Counted 100 Neutrophils % (Manual) 90 % (45-75) Lymphocytes % (Manual) 7 % (20-45) Monocytes % (Manual) 2 % (1-10) Eosinophils % (Manual) 1 % (0-3) Basophils % (Manual) 0 % (0-2) Band Neutrophils 0 % (0-8) Platelet Estimate Adequate Platelet Morphology Normal Hypochromasia 1+ Anisocytosis 1+ Macrocytosis 1+ Target Cells Occasional Stomatocytes Occasional Sodium Level 139 MMOL/L (136-145) Potassium Level 4.3 MMOL/L (3.5-5.1) Chloride Level 101 MMOL/L (98-107) Carbon Dioxide Level 32 MMOL/L (21-32) Anion Gap 6 mmol/L (5-15) Blood Urea Nitrogen 55 mg/dL (7-18) Creatinine 2.6 MG/DL (0.55-1.30) Estimat Glomerular Filtration Rate 23.8 mL/min (>60) Glucose Level 158 MG/DL (74-106) Calcium Level 9.1 MG/DL (8.5-10.1) Phosphorus Level 2.9 MG/DL (2.5-4.9) Total Bilirubin 0.5 MG/DL (0.2-1.0) Aspartate Amino Transf (AST/SGOT) 23 U/L (15-37) Alanine Aminotransferase (ALT/SGPT) 12 U/L (12-78) Alkaline Phosphatase 108 U/L (46-116) Pro-B-Type Natriuretic Peptide 92941 pg/mL (0-125) Total Protein 6.3 G/DL (6.4-8.2) Albumin 2.3 G/DL (3.4-5.0) Globulin 4.0 g/dL Albumin/Globulin Ratio 0.6 (1.0-2.7) POC Whole Blood Glucose 148 MG/DL (74-106) 157 MG/DL (74-106) 157 MG/DL (74-106) Test 11/14/19 06:11 11/14/19 06:50 11/14/19 11:28 11/14/19 18:41 POC Whole Blood Glucose 139 MG/DL (74-106) 173 MG/DL (74-106) White Blood Count 8.5 K/UL (4.8-10.8) Red Blood Count 3.20 M/UL (4.70-6.10) Hemoglobin 9.4 G/DL (14.2-18.0) Hematocrit 32.3 % (42.0-52.0) Mean Corpuscular Volume 101 FL (80-99) Mean Corpuscular Hemoglobin 29.5 PG (27.0-31.0) Mean Corpuscular Hemoglobin Concent 29.2 G/DL (32.0-36.0) Red Cell Distribution Width 16.6 % (11.6-14.8) Platelet Count 262 K/UL (150-450) Mean Platelet Volume 6.6 FL (6.5-10.1) Neutrophils (%) (Auto) % (45.0-75.0) Lymphocytes (%) (Auto) % (20.0-45.0) Monocytes (%) (Auto) % (1.0-10.0) Eosinophils (%) (Auto) % (0.0-3.0) Basophils (%) (Auto) % (0.0-2.0) Differential Total Cells Counted 100 Neutrophils % (Manual) 90 % (45-75) Lymphocytes % (Manual) 8 % (20-45) Monocytes % (Manual) 2 % (1-10) Eosinophils % (Manual) 0 % (0-3) Basophils % (Manual) 0 % (0-2) Band Neutrophils 0 % (0-8) Platelet Estimate Adequate Platelet Morphology Normal Polychromasia 1+ Hypochromasia 2+ Macrocytosis 1+ Sodium Level 139 MMOL/L (136-145) Potassium Level 4.7 MMOL/L (3.5-5.1) Chloride Level 103 MMOL/L (98-107) Carbon Dioxide Level 33 MMOL/L (21-32) Anion Gap 3 mmol/L (5-15) Blood Urea Nitrogen 60 mg/dL (7-18) Creatinine 2.5 MG/DL (0.55-1.30) Estimat Glomerular Filtration Rate 24.9 mL/min (>60) Glucose Level 140 MG/DL (74-106) Calcium Level 9.3 MG/DL (8.5-10.1) Phosphorus Level 2.5 MG/DL (2.5-4.9) Magnesium Level 2.6 MG/DL (1.8-2.4) Total Bilirubin 0.4 MG/DL (0.2-1.0) Aspartate Amino Transf (AST/SGOT) 27 U/L (15-37) Alanine Aminotransferase (ALT/SGPT) 13 U/L (12-78) Alkaline Phosphatase 107 U/L (46-116) Total Protein 6.2 G/DL (6.4-8.2) Albumin 2.2 G/DL (3.4-5.0) Globulin 4.0 g/dL Albumin/Globulin Ratio 0.6 (1.0-2.7) Test 11/15/19 05:50 11/15/19 11:58 11/16/19 05:10 White Blood Count 8.3 K/UL (4.8-10.8) 7.0 K/UL (4.8-10.8) Red Blood Count 2.95 M/UL (4.70-6.10) 2.94 M/UL (4.70-6.10) Hemoglobin 8.8 G/DL (14.2-18.0) 8.7 G/DL (14.2-18.0) Hematocrit 30.0 % (42.0-52.0) 29.5 % (42.0-52.0) Mean Corpuscular Volume 102 FL (80-99) 100 FL (80-99) Mean Corpuscular Hemoglobin 29.9 PG (27.0-31.0) 29.6 PG (27.0-31.0) Mean Corpuscular Hemoglobin Concent 29.4 G/DL (32.0-36.0) 29.5 G/DL (32.0-36.0) Red Cell Distribution Width 16.2 % (11.6-14.8) 15.4 % (11.6-14.8) Platelet Count 290 K/UL (150-450) 263 K/UL (150-450) Mean Platelet Volume 6.4 FL (6.5-10.1) 6.7 FL (6.5-10.1) Neutrophils (%) (Auto) 83.5 % (45.0-75.0) 79.6 % (45.0-75.0) Lymphocytes (%) (Auto) 11.0 % (20.0-45.0) 15.4 % (20.0-45.0) Monocytes (%) (Auto) 3.7 % (1.0-10.0) 3.3 % (1.0-10.0) Eosinophils (%) (Auto) 1.2 % (0.0-3.0) 1.0 % (0.0-3.0) Basophils (%) (Auto) 0.6 % (0.0-2.0) 0.6 % (0.0-2.0) Sodium Level 141 MMOL/L (136-145) Potassium Level 4.8 MMOL/L (3.5-5.1) Chloride Level 102 MMOL/L (98-107) Carbon Dioxide Level 35 MMOL/L (21-32) Anion Gap 4 mmol/L (5-15) Blood Urea Nitrogen 67 mg/dL (7-18) Creatinine 2.8 MG/DL (0.55-1.30) Estimat Glomerular Filtration Rate 21.9 mL/min (>60) Glucose Level 170 MG/DL (74-106) Calcium Level 9.1 MG/DL (8.5-10.1) Phosphorus Level 3.9 MG/DL (2.5-4.9) Magnesium Level 2.7 MG/DL (1.8-2.4) Total Bilirubin 0.3 MG/DL (0.2-1.0) Aspartate Amino Transf (AST/SGOT) 23 U/L (15-37) Alanine Aminotransferase (ALT/SGPT) 10 U/L (12-78) Alkaline Phosphatase 130 U/L (46-116) C-Reactive Protein, Quantitative 4.9 mg/dL (0.00-0.90) Pro-B-Type Natriuretic Peptide 14438 pg/mL (0-125) Total Protein 6.4 G/DL (6.4-8.2) Albumin 2.3 G/DL (3.4-5.0) Globulin 4.1 g/dL Albumin/Globulin Ratio 0.6 (1.0-2.7) POC Whole Blood Glucose 156 MG/DL (74-106) Height (Feet): 5 Height (Inches): 4.00 Weight (Pounds): 192 Objective GENERAL: Not in acute distress. HEENT: ++ngt PULMONARY: Decreased breath sounds. ++ bipap CHEST: ++permacath CARDIOVASCULAR: Regular rate. No S3 or S4. ABDOMEN: Soft, nontender, nondistended. EXTREMITIES: 1+ edema. No cyanosis, swelling, or edema. 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 Melvin Rizzo MD Nov 16, 2019 07:25
[2019-11-16 08:00] VITALS: BP 140/71
[2019-11-16] MEDS: Doxazosin 4mg tab ORAL SCH (09:42)
[2019-11-16] MEDS: Docusate 100mg/10ml Liq NG SCH ×3 (09:42→17:44)
[2019-11-16] MEDS: Lisinopril 20mg tab NG SCH ×2 (09:42→21:00)
[2019-11-16] MEDS: Metoprolol Tartrate 50mg tab NG SCH ×2 (09:42→21:00)
[2019-11-16] MEDS: Lactulose 10gm/15ml UDC NG SCH ×2 (09:42→17:44)
[2019-11-16] MEDS: Acetaminophen 650mg/20.3ml NG PRN (09:43)
--- NOTE | 2019-11-16 10:06 | Pulmonology Progress Note ---
Reema Hanna PSYCHOLOGIST EDUCATIONAL 11/16/19 1006: Subjective ROS Limited/Unobtainable: No Constitutional: Denies: no symptoms, fever, chills, fatigue, anorexia, drenching sweats, other Allergies: Coded Allergies: PENICILLINS (Verified Allergy, Unknown, 10/25/19) tolerated Ceftriaxone All Systems: reviewed and negative except above Subjective on 2L O2 via NC BiPAP at HS no signs of resp distress pulled out G tube, failed swallow eval need another G tube Eliquis stopped Objective Last 24 Hour Vital Signs Date Time Temp Pulse Resp B/P (MAP) Pulse Ox O2 Delivery O2 Flow Rate FiO2 11/16/19 09:44 77 140/71 11/16/19 09:42 140/71 11/16/19 09:42 77 140/71 11/16/19 08:00 98.8 77 19 140/71 (94) 98 11/16/19 07:58 98 Nasal Cannula 2.0 28 11/16/19 04:00 99.0 76 19 137/68 (91) 98 11/16/19 00:00 98.7 90 19 128/63 (84) 96 11/15/19 21:00 Nasal Cannula 2.0 Nasal Cannula 2.0 11/15/19 20:24 98 Nasal Cannula 2.0 28 11/15/19 20:22 127/48 11/15/19 20:22 77 127/48 11/15/19 20:00 99.8 93 19 122/68 (86) 97 11/15/19 16:00 98.4 86 20 139/82 (101) 99 11/15/19 12:00 98.0 87 20 140/79 (99) 98 Intake and Output 11/15/19 11/16/19 19:00 07:00 Intake Total 680 ml 320 ml Output Total 700 ml 300 ml Balance -20 ml 20 ml Free Water 200 ml 120 ml Tube Feeding 480 ml 200 ml Output Urine Total 700 ml 300 ml # Bowel Movements 1 Objective General Appearance: no apparent distress, Wallisian speaking awake, more alert and responsive male, Lines, tubes and drains: R chest tunneled HD catheter , R femoral temporal HD catheter HEENT: normocephalic, atraumatic, anicteric, mucous membranes moist, O2 2 L via NC, Respiratory/Chest: few scattered crackles, no exp wheezing, Cardiovascular/Chest: normal rate, SR Abdomen: normal bowel sounds, non tender, soft Extremities: partially amputated BL foot/metatarsal Skin Exam: warm/dry Neurologic: abnormal gait, awake, more responsive responsive, Musculoskeletal: atrophy BLE Laboratory Tests 11/15/19 11:58: POC Whole Blood Glucose 156H 11/16/19 05:10: White Blood Count 7.0, Red Blood Count 2.94L, Hemoglobin 8.7L, Hematocrit 29.5L , Mean Corpuscular Volume 100H, Mean Corpuscular Hemoglobin 29.6, Mean Corpuscular Hemoglobin Concent 29.5L, Red Cell Distribution Width 15.4H, Platelet Count 263, Mean Platelet Volume 6.7, Neutrophils (%) (Auto) 79.6H, Lymphocytes (%) (Auto) 15.4L, Monocytes (%) (Auto) 3.3, Eosinophils (%) (Auto) 1.0, Basophils (%) (Auto) 0.6, Sodium Level 141, Potassium Level 4.5, Chloride Level 102, Carbon Dioxide Level 35H, Anion Gap 4L, Blood Urea Nitrogen 79H, Creatinine 3.2H, Estimat Glomerular Filtration Rate 18.7, Glucose Level 123H, Uric Acid 7.1, Calcium Level 9.9, Phosphorus Level 3.7, Magnesium Level 3.0H, Total Bilirubin 0.4, Aspartate Amino Transf (AST/SGOT) 21, Alanine Aminotransferase (ALT/SGPT) 16, Alkaline Phosphatase 125H, C-Reactive Protein, Quantitative 2.9H, Pro-B-Type Natriuretic Peptide 44443O, Total Protein 6.0L, Albumin 2.3L, Globulin 3.7, Albumin/Globulin Ratio 0.6L Current Medications Medications (Trade) Dose Ordered Sig/Cammy Route PRN Reason Start Time Stop Time Status Last Admin Dose Admin Acetaminophen (Tylenol) 650 mg Q6H PRN NG Pain 3-5 11/14/19 12:00 12/02/19 00:00 11/16/19 09:43 Amlodipine Besylate (Norvasc) 10 mg DAILY NG 11/15/19 09:00 11/25/19 08:59 11/16/19 09:44 Atorvastatin Calcium (Lipitor) 10 mg BEDTIME NG 11/14/19 21:00 01/21/20 20:59 11/15/19 20:21 Chlorhexidine Gluconate (Yi-Hex 2%) 1 applic DAILY@2000 TOPIC 11/14/19 20:00 01/31/20 19:59 11/15/19 20:21 Clonidine HCl (Catapres TTS-1) 1 patch QWEEK TDERMAL 11/19/19 19:00 02/10/20 18:59 Dextrose (Dextrose 50%) 25 ml Q30M PRN IV Hypoglycemia 11/14/19 10:45 01/20/20 21:44 Dextrose (Dextrose 50%) 50 ml Q30M PRN IV Hypoglycemia 11/14/19 10:45 01/20/20 21:44 Docusate Sodium (Colace) 100 mg THREE TIMES A DAY NG 11/14/19 13:00 12/02/19 17:59 11/16/19 09:42 Doxazosin Mesylate (Cardura) 2 mg DAILY ORAL 11/15/19 09:00 12/15/19 08:59 11/16/19 09:42 Epoetin William (Epoetin William(ESRD on dialysis)) 10,000 unit SUBQ 11/15/19 21:00 02/01/20 20:59 11/15/19 20:22 Haloperidol (Haldol) 5 mg Q12H PRN NG Agitation 11/14/19 12:00 12/26/19 00:00 Haloperidol Lactate (Haldol) 5 mg Q6H PRN IM Agitation 11/14/19 12:00 12/10/19 00:00 11/14/19 20:54 Insulin Aspart (NovoLOG) Q6HR SUBQ 11/14/19 12:00 01/31/20 06:29 11/15/19 23:29 Lactulose (Cephulac) 10 gm BID NG 11/14/19 18:00 12/01/19 08:59 11/16/19 09:42 Lansoprazole (Prevacid) 30 mg DAILY NG 11/15/19 09:00 12/11/19 08:59 11/16/19 09:42 Levothyroxine Sodium (Synthroid) 75 mcg DAILY@0630 NG 11/15/19 06:30 12/04/19 06:29 11/15/19 05:48 Lisinopril (PriniviL) 20 mg Q12HR NG 11/15/19 21:00 12/13/19 20:59 11/16/19 09:42 Metoprolol Tartrate (Lopressor) 50 mg Q12HR NG 11/15/19 09:00 02/13/20 08:59 11/16/19 09:42 Polyethylene Glycol (Miralax) 17 gm BEDTIME NG 11/14/19 21:00 12/01/19 20:59 11/14/19 22:08 Sennosides (Senokot) 8.6 mg HSPRN PRN NG Constipation 11/14/19 12:00 12/14/19 11:59 Assessment/Plan Assessment/Plan ASSESSMENT Acute hypoxemic hypercapnic respiratory failure requiring BiPAP Acute metabolic encephalopathy likely due to hypoglycemia Diabetes mellitus with initial hypoglycemia Probably pneumonia , s/p Rx Aspiration risk Dysphagia , s/p PEG Acute kidney injury on chronic kidney disease, requiring start of HD 10/30 Severe anemia requiring blood transfusion Metabolic acidosis Electrolyte imbalance :hyponatremia, hyperkalemia HTN with HTN urgency Hematuria 2 to pt pulled off his Lyles catheter Possibly DAYANA PLAN OF CARE tele BiPAP at HS and prn currently on O2 2 L via NC titrate O2, pulm toilet patient likely has DAYANA. recommend sleep study as OP CXR 11/02 -> Stable slightly increased bilateral pleural effusions. Otherwise little manager exchange 3 days 10/21 and 10/24 rapid COVID NGT, abx as per ID recs -> Ceftriaxone , completed 10/30 ; s/p Vanco , completed Rx for PNA 7 days, remains afebrile no leucocytosis BCX 10/21 NGTD UCX NGT SCX if able Venous Duplex BLE 10/25 -> NGT CT head revealed bilateral mastoid disease; a new finding ID recommended ENT eval- pending- per primary team remains afebrile, asymptomatic on HD- started 10/30 renal US ->Mildly atrophic kidneys. No hydronephrosis or nephrolithiasis. monitor volumes, renal parameters, lytes, correct as needed fup with nephro recs s/p placement of permanent HD catheter R chest 11/07 s/p removal of temporary HD catheter by surgeon ECHO with pEF 55-60% rate control with BB, now added, HR stable on chronic a/c , was on hold for PEG, resume Eliquis swallow eval with aspiration risk diet texture as per ST recs with strict asp precautions and assistance with meals now NGT repeat BSSE 11/04 -> failed, recommended nonoral feeding started on NGT feeding strict aspiration precautions s/p PEG 11/08 asp precautions, GT site care, monitor tolerance of TF now pulled out GT , needs replacement failed swallow eval 11/14 need another G tube NPO, Eliquis dc for now fup with further GI recs AMS 10/[address] head negative, off sedatives ammonia WNL NGT inserted for meds as per nephro recs ( prior to G tube) NEED NEURO EVAL-per primary AMS improved to baseline psych follows HgA1c -6.1 hold oral anti-glycemic SSI prn sensitive initial AMS was most likely due to episode of hypoglycemia CT head NGT for acute ICP -done x 2 BP management with CCB BB and Hydralazine prn for BP spikes monitor HH with goal to keep Hgb above 7 stool OB anemia w/up noted , heme on board s/p 1 dose of Venofer on EPO hematuria resolved, Hgb at baseline GI prophayxlis supportive care WILL NEED TRILOGY VENT TO BE ARRANGED ON DISCHARGE ( pt needs BIPAP at HS and prn ) declined BiPAP prior for few nights, but was compliant prior , need reenforcement to use BiPAP at HS case management aware, work in progress case discussed and evaluated by supervising physician Leoncio Galan MD 11/16/192046: Subjective Allergies: Coded Allergies: PENICILLINS (Verified Allergy, Unknown, 10/25/19) tolerated Ceftriaxone Assessment/Plan Assessment/Plan Patient seen and examined with PSYCHOLOGIST EDUCATIONAL. Agree with above A&P as it reflects our joint deliberations. Reema Hanna NP Nov 16, 2019 10:06 Leoncio Galan MD Nov 16, 2019 20:47
--- NOTE | 2019-11-16 10:42 | Nephrology Progress Note ---
Assessment/Plan Problem List: (1) Renal failure (ARF), acute on chronic (2) Metabolic acidosis (3) Electrolyte imbalance Assessment: Hyponatremia and hyperkalemia (4) Anemia (5) CHF (congestive heart failure) Assessment 79-year-old male is admitted for hypoglycemia Patient has renal failure which appears to be acute on chronic Hyperkalemia Hyponatremia CHF, pleural effusion, pneumonia Anemia Metabolic acidosis Hypothyroidism Plan November 15: Lab reviewed. Serum creatinine creeping up. We will continue to monitor renal parameters. Further rise in serum creatinine will again require dialysis. November 14: Lab reviewed. Serum creatinine danial lethargic. Is a NG tube. Doubt stone pass speech therapy for oral intake. We will continue to monitor renal parameters. Review mind altering medication and adjust as possible. Continue per consultants. November 13: Labs reviewed. Serum creatinine is leveling off. No dialysis needed at this time. Patient has NG tube. Due for swallowing study. We will continue to monitor renal parameters. He may not need any further dialysis treatment as the acute renal failure appears to have been resolved. Will adjust blood pressure medication. Continue per orders. November 12: Lab works are reviewed. Renal parameters stable. Dialysis as needed. Medication list reviewed. November 11: Patient last dialyzed November 09. Patient pulled out the GT tube. Slight bleeding from the site observed. GI to reinsert. Zestril added for BP control. Next hemodialysis tomorrow. November 10: Patient was dialyzed yesterday. Labs reviewed. Stable from renal standpoint of view. November 09: Patient due for dialysis today due to incomplete dialysis yesterday as a result of catheter malfunction. The femoral catheter was already removed this morning. Labs reviewed. Continue current management. November 08: Dialysis attempted through the permacath which was put in yesterday by IR. Due to high catheter pressure , dialysis was held and PTAse administered. Dialysis will be tried again tomorrow. Will check labs tomorrow. November 07: Patient due for tunneled catheter insertion today. Will order dialysis tomorrow. Continue to monitor renal parameters. Labs and medications reviewed. November 06: Patient due for tunnel catheter insertion November 07. Serum creatinine is rising. Labs reviewed. Continue per consultants. November 05: Last dialysis November 03. Eliquis on hold. Due tunneled catheter insertion on November 07. Labs are reviewed. Continue current management. November 04: Dialyzed yesterday. Due for insertion of tunneled catheter today. May need to hold Eliquis and reschedule catheter insertion on Friday. Will monitor renal parameters in the meantime. November 03: Dialyzed this morning. Stable from renal standpoint of view. Due for insertion of tunneled catheter tomorrow. November 02: Dialyzed yesterday. Will DC IV fluid. Dialysis tomorrow. Potassium supplement given. Per orders. November 01: Patient currently being dialyzed. Tolerating well. Labs will be reviewed. Continue per consultants. October 31: Patient was dialyzed yesterday. Clinically doing better. We will continue to monitor renal parameters. Dialysis as needed. October 30: Serum creatinine rising. Patient due to have a temporary dialysis catheter and due for dialysis today. Will continue to follow-up renal parameters. Patient remains full code. October 29: Serum creatinine rising. Serum creatinine 4.5 today. Calculated creatinine clearance is 12. Kidney ultrasound ordered yesterday results were reviewed. Patient appears to have acute renal failure due to underlying sepsis and nephrotoxic medications. Patient requires dialysis treatment. Ordered to obtain consent from the responsible green party. Will communicate with PMD and or he is coverage. October 28: Serum creatinine higher to 4.2 today. Blood pressure appears more stable. In view of worsening renal failure, will order stat kidney ultrasound and urine studies. Continue to monitor renal parameters. Patient is full code. Worsening renal parameters may lead to hemodialysis treatment. October 27: Patient pulled out the Lyles catheter. Serum creatinine went up to 3.8. Blood pressure somewhat low. Heart rate in 50s. Will discontinue Coreg. We will continue to monitor renal parameters. October 26: Serum creatinine lower again today. Will abort the dialysis plan. Continue per consultants. Continue to monitor renal parameters. Medication list reviewed. October 25: Clinically improving. Serum creatinine lower. Urine output increased. No dialysis planned at this time. Continue per consultants. October 24: Patient's respiratory status somewhat improved. Serum creatinine down to 3.9. Urinary output somewhat increased. Will hold placement of dialysis catheter at this time. Blood pressure medication adjusted. Continue to monitor renal parameters. Per orders. October 23: Patient remains on BiPAP. More Kayexalate ordered. Will consider hemodialysis to correct fluid overload and hyperkalemia and acidosis. Will discuss with PMD. Meanwhile IV Synthroid started. Discussed with BENJAMIN Aguirre Patient already transfused 1 unit for severe anemia previously Will initiate Epogen 10,000 units subcutaneously 1 dose of IV iron Venofer 200 g IV Kayexalate for hyperkalemia as needed 2D echocardiogram ordered, ejection fraction is reported normal Kidney ultrasound ordered: Kidneys: Right kidney measures 9.1 cm in length. No hydronephrosis or stone. Left kidney not visualized due to patient's body habitus. Avoid nephrotoxic's Monitor renal parameters Will hold insulin and hypoglycemic agents until hypoglycemia is reasonably resolved Subjective ROS Limited/Unobtainable: Yes Objective Objective Last 24 Hour Vital Signs Date Time Temp Pulse Resp B/P (MAP) Pulse Ox O2 Delivery O2 Flow Rate FiO2 11/16/19 09:44 77 140/71 11/16/19 09:42 140/71 11/16/19 09:42 77 140/71 11/16/19 08:00 98.8 77 19 140/71 (94) 98 11/16/19 07:58 98 Nasal Cannula 2.0 28 11/16/19 04:00 99.0 76 19 137/68 (91) 98 11/16/19 00:00 98.7 90 19 128/63 (84) 96 11/15/19 21:00 Nasal Cannula 2.0 Nasal Cannula 2.0 11/15/19 20:24 98 Nasal Cannula 2.0 28 11/15/19 20:22 127/48 11/15/19 20:22 77 127/48 11/15/19 20:00 99.8 93 19 122/68 (86) 97 11/15/19 16:00 98.4 86 20 139/82 (101) 99 11/15/19 12:00 98.0 87 20 140/79 (99) 98 Intake and Output 11/15/19 11/16/19 19:00 07:00 Intake Total 680 ml 320 ml Output Total 700 ml 300 ml Balance -20 ml 20 ml Free Water 200 ml 120 ml Tube Feeding 480 ml 200 ml Output Urine Total 700 ml 300 ml # Bowel Movements 1 Current Medications Medications (Trade) Dose Ordered Sig/Cammy Route PRN Reason Start Time Stop Time Status Last Admin Dose Admin Acetaminophen (Tylenol) 650 mg Q6H PRN NG Pain 3-5 11/14/19 12:00 12/02/19 00:00 11/16/19 09:43 Amlodipine Besylate (Norvasc) 10 mg DAILY NG 11/15/19 09:00 11/25/19 08:59 11/16/19 09:44 Atorvastatin Calcium (Lipitor) 10 mg BEDTIME NG 11/14/19 21:00 01/21/20 20:59 11/15/19 20:21 Chlorhexidine Gluconate (Yi-Hex 2%) 1 applic DAILY@2000 TOPIC 11/14/19 20:00 01/31/20 19:59 11/15/19 20:21 Clonidine HCl (Catapres TTS-1) 1 patch QWEEK TDERMAL 11/19/19 19:00 02/10/20 18:59 Dextrose (Dextrose 50%) 25 ml Q30M PRN IV Hypoglycemia 11/14/19 10:45 01/20/20 21:44 Dextrose (Dextrose 50%) 50 ml Q30M PRN IV Hypoglycemia 11/14/19 10:45 01/20/20 21:44 Docusate Sodium (Colace) 100 mg THREE TIMES A DAY NG 11/14/19 13:00 12/02/19 17:59 11/16/19 09:42 Doxazosin Mesylate (Cardura) 2 mg DAILY ORAL 11/15/19 09:00 12/15/19 08:59 11/16/19 09:42 Epoetin William (Epoetin William(ESRD on dialysis)) 10,000 unit SUBQ 11/15/19 21:00 02/01/20 20:59 11/15/19 20:22 Haloperidol (Haldol) 5 mg Q12H PRN NG Agitation 11/14/19 12:00 12/26/19 00:00 Haloperidol Lactate (Haldol) 5 mg Q6H PRN IM Agitation 11/14/19 12:00 12/10/19 00:00 11/14/19 20:54 Insulin Aspart (NovoLOG) Q6HR SUBQ 11/14/19 12:00 01/31/20 06:29 11/15/19 23:29 Lactulose (Cephulac) 10 gm BID NG 11/14/19 18:00 12/01/19 08:59 11/16/19 09:42 Lansoprazole (Prevacid) 30 mg DAILY NG 11/15/19 09:00 12/11/19 08:59 11/16/19 09:42 Levothyroxine Sodium (Synthroid) 75 mcg DAILY@0630 NG 11/15/19 06:30 12/04/19 06:29 11/15/19 05:48 Lisinopril (PriniviL) 20 mg Q12HR NG 11/15/19 21:00 12/13/19 20:59 11/16/19 09:42 Metoprolol Tartrate (Lopressor) 50 mg Q12HR NG 11/15/19 09:00 02/13/20 08:59 11/16/19 09:42 Polyethylene Glycol (Miralax) 17 gm BEDTIME NG 11/14/19 21:00 12/01/19 20:59 11/14/19 22:08 Sennosides (Senokot) 8.6 mg HSPRN PRN NG Constipation 11/14/19 12:00 12/14/19 11:59 Laboratory Tests 11/15/19 11:58: POC Whole Blood Glucose 156H 11/16/19 05:10: White Blood Count 7.0, Red Blood Count 2.94L, Hemoglobin 8.7L, Hematocrit 29.5L , Mean Corpuscular Volume 100H, Mean Corpuscular Hemoglobin 29.6, Mean Corpuscular Hemoglobin Concent 29.5L, Red Cell Distribution Width 15.4H, Platelet Count 263, Mean Platelet Volume 6.7, Neutrophils (%) (Auto) 79.6H, Lymphocytes (%) (Auto) 15.4L, Monocytes (%) (Auto) 3.3, Eosinophils (%) (Auto) 1.0, Basophils (%) (Auto) 0.6, Sodium Level 141, Potassium Level 4.5, Chloride Level 102, Carbon Dioxide Level 35H, Anion Gap 4L, Blood Urea Nitrogen 79H, Creatinine 3.2H, Estimat Glomerular Filtration Rate 18.7, Glucose Level 123H, Uric Acid 7.1, Calcium Level 9.9, Phosphorus Level 3.7, Magnesium Level 3.0H, Total Bilirubin 0.4, Aspartate Amino Transf (AST/SGOT) 21, Alanine Aminotransferase (ALT/SGPT) 16, Alkaline Phosphatase 125H, C-Reactive Protein, Quantitative 2.9H, Pro-B-Type Natriuretic Peptide 63257K, Total Protein 6.0L, Albumin 2.3L, Globulin 3.7, Albumin/Globulin Ratio 0.6L Height (Feet): 5 Height (Inches): 4.00 Weight (Pounds): 192 General Appearance: no apparent distress, lethargic, confused EENT: other - NG tube in place Cardiovascular: normal rate Respiratory/Chest: decreased breath sounds Abdomen: distended Objective No change Naveed Vanegas MD Nov 16, 2019 10:42
[2019-11-16 12:00] VITALS: BP 123/50
--- NOTE | 2019-11-16 12:05 | Pre-Procedure Note/Attestation ---
Pre-Procedure Note/Attestation Complete Prior to Procedure Planned Procedure: not applicable Procedure Narrative: egd/peg Indications for Procedure Pre-Operative Diagnosis: dysphagia Attestation I attest that I discussed the nature of the procedure; its benefits; risks and complications; and alternatives (and the risks and benefits of such alternatives ), prior to the procedure, with the patient (or the patient's legal renewals representative). I attest that, if there was a reasonable possibility of needing a blood transfusion, the patient (or the patient's legal renewals representative) was given the [facility] standardized written summary, pursuant to the [place]t [place] Blood Safety Act ([place] Health and Safety Code # 1645, as amended). I attest that I re-evaluated the patient just prior to the surgery and that there has been no change in the patient's H&P, except as documented below: Lawrence Humphreys MD Nov 16, 2019 12:05
--- NOTE | 2019-11-16 13:00 | Infectious Diseases Prog Note ---
Assessment/Plan 79yo M from SNF who p/w hypoglycemia and resp failure: Acute hypoxic respiratory failure, on BiPAP > 2L NC> RA > 2L NC Rapid COVID neg x2 (10/21, 10/24) Pneumonia on CXR, sp rx Volume overload 10/30 CXR: Slightly improved 10/25 CXR: Bilateral alveolar densities are unchanged 10/24 Sp cx normal resp demario (prelim) 10/23 CXR: 1. Small layering right pleural effusion, not significantly changed. The previously noted small left pleural effusion is not as evident.Prominent lung markings and haziness, right greater left, which may be related to pulmonary vascular congestion versus pneumonitis. This is not significantly changed.. Subsegmental atelectasis versus infiltrate in the medial left lung base, also not significantly changed. 10/21 CXR: 1. Small bilateral pleural effusions. Bibasilar atelectasis versus pneumonia. 2. Prominent lung markings and hazy opacities in right greater than left lungs may represent artifact versus pulmonary vasculature congestion and edema versus infectious/inflammatory process. 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 10/31 No clear clinical correlate to this imaging finding, s/p 7 days of CTX which is good abx for mastoiditis Afebrile No leukocytosis Anemia to 6.8, improved UA neg, UCx neg 10/21 BCx Neg ALEXIS on CKD, worsening --> now on HD HBsAg neg Plan: Cont to monitor off abx 11/07 Clindamycin x1 for catheter placement 10/31 SP CTX #7 10/26 SP vancomycin IV #5 Trend resp status Monitor CBC, CMP recommend ENT eval as outpt Thank you for this consult. [facility] will continue to follow. Subjective Allergies: Coded Allergies: PENICILLINS (Verified Allergy, Unknown, 10/25/19) tolerated Ceftriaxone afebrile no leukocytosis off abx at 2l NC discharge planning Objective Last 24 Hour Vital Signs Date Time Temp Pulse Resp B/P (MAP) Pulse Ox O2 Delivery O2 Flow Rate FiO2 11/16/19 12:00 96.8 63 19 123/50 (74) 99 11/16/19 09:44 77 140/71 11/16/19 09:42 140/71 11/16/19 09:42 77 140/71 11/16/19 09:00 Nasal Cannula 2.0 11/16/19 08:00 98.8 77 19 140/71 (94) 98 11/16/19 07:58 98 Nasal Cannula 2.0 28 11/16/19 04:00 99.0 76 19 137/68 (91) 98 11/16/19 00:00 98.7 90 19 128/63 (84) 96 11/15/19 21:00 Nasal Cannula 2.0 Nasal Cannula 2.0 11/15/19 20:24 98 Nasal Cannula 2.0 28 11/15/19 20:22 127/48 11/15/19 20:22 77 127/48 11/15/19 20:00 99.8 93 19 122/68 (86) 97 11/15/19 16:00 98.4 86 20 139/82 (101) 99 Height (Feet): 5 Height (Inches): 4.00 Weight (Pounds): 192 Gen NAD Pulm: BL chest rise Abd: soft, NTND Ext: No c/c/e, 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 Laboratory Tests Test 11/16/19 05:10 White Blood Count 7.0 K/UL (4.8-10.8) Red Blood Count 2.94 M/UL (4.70-6.10) L Hemoglobin 8.7 G/DL (14.2-18.0) L Hematocrit 29.5 % (42.0-52.0) L Mean Corpuscular Volume 100 FL (80-99) H Mean Corpuscular Hemoglobin 29.6 PG (27.0-31.0) Mean Corpuscular Hemoglobin Concent 29.5 G/DL (32.0-36.0) L Red Cell Distribution Width 15.4 % (11.6-14.8) H Platelet Count 263 K/UL (150-450) Mean Platelet Volume 6.7 FL (6.5-10.1) Neutrophils (%) (Auto) 79.6 % (45.0-75.0) H Lymphocytes (%) (Auto) 15.4 % (20.0-45.0) L Monocytes (%) (Auto) 3.3 % (1.0-10.0) Eosinophils (%) (Auto) 1.0 % (0.0-3.0) Basophils (%) (Auto) 0.6 % (0.0-2.0) Sodium Level 141 MMOL/L (136-145) Potassium Level 4.5 MMOL/L (3.5-5.1) Chloride Level 102 MMOL/L (98-107) Carbon Dioxide Level 35 MMOL/L (21-32) H Anion Gap 4 mmol/L (5-15) L Blood Urea Nitrogen 79 mg/dL (7-18) H Creatinine 3.2 MG/DL (0.55-1.30) H Estimat Glomerular Filtration Rate 18.7 mL/min (>60) Glucose Level 123 MG/DL (74-106) H Uric Acid 7.1 MG/DL (2.6-7.2) Calcium Level 9.9 MG/DL (8.5-10.1) Phosphorus Level 3.7 MG/DL (2.5-4.9) Magnesium Level 3.0 MG/DL (1.8-2.4) H Total Bilirubin 0.4 MG/DL (0.2-1.0) Aspartate Amino Transf (AST/SGOT) 21 U/L (15-37) Alanine Aminotransferase (ALT/SGPT) 16 U/L (12-78) Alkaline Phosphatase 125 U/L (46-116) H C-Reactive Protein, Quantitative 2.9 mg/dL (0.00-0.90) H Pro-B-Type Natriuretic Peptide 22687 pg/mL (0-125) H Total Protein 6.0 G/DL (6.4-8.2) L Albumin 2.3 G/DL (3.4-5.0) L Globulin 3.7 g/dL Albumin/Globulin Ratio 0.6 (1.0-2.7) L Current Medications Medications (Trade) Dose Ordered Sig/Cammy Route PRN Reason Start Time Stop Time Status Last Admin Dose Admin Acetaminophen (Tylenol) 650 mg Q6H PRN NG Pain 3-5 11/14/19 12:00 12/02/19 00:00 11/16/19 09:43 Amlodipine Besylate (Norvasc) 10 mg DAILY NG 11/15/19 09:00 11/25/19 08:59 11/16/19 09:44 Atorvastatin Calcium (Lipitor) 10 mg BEDTIME NG 11/14/19 21:00 01/21/20 20:59 11/15/19 20:21 Chlorhexidine Gluconate (Yi-Hex 2%) 1 applic DAILY@1999 TOPIC 11/14/19 20:00 01/31/20 19:59 11/15/19 20:21 Clonidine HCl (Catapres TTS-1) 1 patch QWEEK TDERMAL 11/19/19 19:00 02/10/20 18:59 Dextrose (Dextrose 50%) 25 ml Q30M PRN IV Hypoglycemia 11/14/19 10:45 01/20/20 21:44 Dextrose (Dextrose 50%) 50 ml Q30M PRN IV Hypoglycemia 11/14/19 10:45 01/20/20 21:44 Docusate Sodium (Colace) 100 mg THREE TIMES A DAY NG 11/14/19 13:00 12/02/19 17:59 11/16/19 09:42 Doxazosin Mesylate (Cardura) 2 mg DAILY ORAL 11/15/19 09:00 12/15/19 08:59 11/16/19 09:42 Epoetin William (Epoetin William(ESRD on dialysis)) 10,000 unit SUBQ 11/15/19 21:00 02/01/20 20:59 11/15/19 20:22 Haloperidol (Haldol) 5 mg Q12H PRN NG Agitation 11/14/19 12:00 12/26/19 00:00 Haloperidol Lactate (Haldol) 5 mg Q6H PRN IM Agitation 11/14/19 12:00 12/10/19 00:00 11/14/19 20:54 Insulin Aspart (NovoLOG) Q6HR SUBQ 11/14/19 12:00 01/31/20 06:29 11/15/19 23:29 Lactulose (Cephulac) 10 gm BID NG 11/14/19 18:00 12/01/19 08:59 11/16/19 09:42 Lansoprazole (Prevacid) 30 mg DAILY NG 11/15/19 09:00 12/11/19 08:59 11/16/19 09:42 Levothyroxine Sodium (Synthroid) 75 mcg DAILY@0630 NG 11/15/19 06:30 12/04/19 06:29 11/15/19 05:48 Lisinopril (PriniviL) 20 mg Q12HR NG 11/15/19 21:00 12/13/19 20:59 11/16/19 09:42 Metoprolol Tartrate (Lopressor) 50 mg Q12HR NG 11/15/19 09:00 02/13/20 08:59 11/16/19 09:42 Polyethylene Glycol (Miralax) 17 gm BEDTIME NG 11/14/19 21:00 12/01/19 20:59 11/14/19 22:08 Sennosides (Senokot) 8.6 mg HSPRN PRN NG Constipation 11/14/19 12:00 12/14/19 11:59 Trinity Pan M.D. Nov 16, 2019 13:00
--- NOTE | 2019-11-16 13:30 | General Progress Note ---
Assessment/Plan Problem List: (1) Hypertension ICD Codes: I10 - Essential (primary) hypertension SNOMED: 01719725 (2) Diabetes mellitus ICD Codes: E11.9 - Type 2 diabetes mellitus without complications SNOMED: 66849312 (3) Anemia ICD Codes: D64.9 - Anemia, unspecified SNOMED: 901013171 (4) Cholelithiasis ICD Codes: K80.20 - Calculus of gallbladder without cholecystitis without obstruction SNOMED: 181122594 (5) CHF (congestive heart failure) ICD Codes: I50.9 - Heart failure, unspecified SNOMED: 18900552 Assessment/Plan: HD per nephrology patient pulled the GT out ordered repeat swallow eval>>failed again NGTF for now peg for tomorrow Subjective ROS Limited/Unobtainable: No Allergies: Coded Allergies: PENICILLINS (Verified Allergy, Unknown, 10/25/19) tolerated Ceftriaxone Objective Last 24 Hour Vital Signs Date Time Temp Pulse Resp B/P (MAP) Pulse Ox O2 Delivery O2 Flow Rate FiO2 11/16/19 12:00 96.8 63 19 123/50 (74) 99 11/16/19 09:44 77 140/71 11/16/19 09:42 140/71 11/16/19 09:42 77 140/71 11/16/19 09:00 Nasal Cannula 2.0 11/16/19 08:00 98.8 77 19 140/71 (94) 98 11/16/19 07:58 98 Nasal Cannula 2.0 28 11/16/19 04:00 99.0 76 19 137/68 (91) 98 11/16/19 00:00 98.7 90 19 128/63 (84) 96 11/15/19 21:00 Nasal Cannula 2.0 Nasal Cannula 2.0 11/15/19 20:24 98 Nasal Cannula 2.0 28 11/15/19 20:22 127/48 11/15/19 20:22 77 127/48 11/15/19 20:00 99.8 93 19 122/68 (86) 97 11/15/19 16:00 98.4 86 20 139/82 (101) 99 Intake and Output 11/15/19 11/16/19 19:00 07:00 Intake Total 680 ml 320 ml Output Total 700 ml 300 ml Balance -20 ml 20 ml Free Water 200 ml 120 ml Tube Feeding 480 ml 200 ml Output Urine Total 700 ml 300 ml # Bowel Movements 1 Laboratory Tests 11/16/19 05:10: White Blood Count 7.0, Red Blood Count 2.94L, Hemoglobin 8.7L, Hematocrit 29.5L , Mean Corpuscular Volume 100H, Mean Corpuscular Hemoglobin 29.6, Mean Corpuscular Hemoglobin Concent 29.5L, Red Cell Distribution Width 15.4H, Platelet Count 263, Mean Platelet Volume 6.7, Neutrophils (%) (Auto) 79.6H, Lymphocytes (%) (Auto) 15.4L, Monocytes (%) (Auto) 3.3, Eosinophils (%) (Auto) 1.0, Basophils (%) (Auto) 0.6, Sodium Level 141, Potassium Level 4.5, Chloride Level 102, Carbon Dioxide Level 35H, Anion Gap 4L, Blood Urea Nitrogen 79H, Creatinine 3.2H, Estimat Glomerular Filtration Rate 18.7, Glucose Level 123H, Uric Acid 7.1, Calcium Level 9.9, Phosphorus Level 3.7, Magnesium Level 3.0H, Total Bilirubin 0.4, Aspartate Amino Transf (AST/SGOT) 21, Alanine Aminotransferase (ALT/SGPT) 16, Alkaline Phosphatase 125H, C-Reactive Protein, Quantitative 2.9H, Pro-B-Type Natriuretic Peptide 82591U, Total Protein 6.0L, Albumin 2.3L, Globulin 3.7, Albumin/Globulin Ratio 0.6L Height (Feet): 5 Height (Inches): 4.00 Weight (Pounds): 192 General Appearance: alert EENT: normal ENT inspection Neck: supple Cardiovascular: normal rate Respiratory/Chest: decreased breath sounds Abdomen: normal bowel sounds, non tender, soft Extremities: non-tender Lawrence Humphreys MD Nov 16, 2019 13:30
--- NOTE | 2019-11-16 14:06 | Surgery Progress Note ---
Surgery Progress Note Subjective Procedure Performed removal Right femoral temporary hemodialysis catheter Symptoms: improved, tolerating diet, voiding well, passing flatus, BM Objective Last 24 Hour Vital Signs Date Time Temp Pulse Resp B/P (MAP) Pulse Ox O2 Delivery O2 Flow Rate FiO2 11/16/19 12:00 96.8 63 19 123/50 (74) 99 11/16/19 09:44 77 140/71 11/16/19 09:42 140/71 11/16/19 09:42 77 140/71 11/16/19 09:00 Nasal Cannula 2.0 11/16/19 08:00 98.8 77 19 140/71 (94) 98 11/16/19 07:58 98 Nasal Cannula 2.0 28 11/16/19 04:00 99.0 76 19 137/68 (91) 98 11/16/19 00:00 98.7 90 19 128/63 (84) 96 11/15/19 21:00 Nasal Cannula 2.0 Nasal Cannula 2.0 11/15/19 20:24 98 Nasal Cannula 2.0 28 11/15/19 20:22 127/48 11/15/19 20:22 77 127/48 11/15/19 20:00 99.8 93 19 122/68 (86) 97 11/15/19 16:00 98.4 86 20 139/82 (101) 99 I&O Intake and Output 11/15/19 11/16/19 19:00 07:00 Intake Total 680 ml 320 ml Output Total 700 ml 300 ml Balance -20 ml 20 ml Free Water 200 ml 120 ml Tube Feeding 480 ml 200 ml Output Urine Total 700 ml 300 ml # Bowel Movements 1 Dressing: dry Wound: clean Cardiovascular: RSR Respiratory: clear, decreased breath sounds Abdomen: soft, non-tender, present bowel sounds Extremities: edema, no tenderness, no cyanosis Laboratory Tests Test 11/16/19 05:10 White Blood Count 7.0 K/UL (4.8-10.8) Red Blood Count 2.94 M/UL (4.70-6.10) L Hemoglobin 8.7 G/DL (14.2-18.0) L Hematocrit 29.5 % (42.0-52.0) L Mean Corpuscular Volume 100 FL (80-99) H Mean Corpuscular Hemoglobin 29.6 PG (27.0-31.0) Mean Corpuscular Hemoglobin Concent 29.5 G/DL (32.0-36.0) L Red Cell Distribution Width 15.4 % (11.6-14.8) H Platelet Count 263 K/UL (150-450) Mean Platelet Volume 6.7 FL (6.5-10.1) Neutrophils (%) (Auto) 79.6 % (45.0-75.0) H Lymphocytes (%) (Auto) 15.4 % (20.0-45.0) L Monocytes (%) (Auto) 3.3 % (1.0-10.0) Eosinophils (%) (Auto) 1.0 % (0.0-3.0) Basophils (%) (Auto) 0.6 % (0.0-2.0) Sodium Level 141 MMOL/L (136-145) Potassium Level 4.5 MMOL/L (3.5-5.1) Chloride Level 102 MMOL/L (98-107) Carbon Dioxide Level 35 MMOL/L (21-32) H Anion Gap 4 mmol/L (5-15) L Blood Urea Nitrogen 79 mg/dL (7-18) H Creatinine 3.2 MG/DL (0.55-1.30) H Estimat Glomerular Filtration Rate 18.7 mL/min (>60) Glucose Level 123 MG/DL (74-106) H Uric Acid 7.1 MG/DL (2.6-7.2) Calcium Level 9.9 MG/DL (8.5-10.1) Phosphorus Level 3.7 MG/DL (2.5-4.9) Magnesium Level 3.0 MG/DL (1.8-2.4) H Total Bilirubin 0.4 MG/DL (0.2-1.0) Aspartate Amino Transf (AST/SGOT) 21 U/L (15-37) Alanine Aminotransferase (ALT/SGPT) 16 U/L (12-78) Alkaline Phosphatase 125 U/L (46-116) H C-Reactive Protein, Quantitative 2.9 mg/dL (0.00-0.90) H Pro-B-Type Natriuretic Peptide 97476 pg/mL (0-125) H Total Protein 6.0 G/DL (6.4-8.2) L Albumin 2.3 G/DL (3.4-5.0) L Globulin 3.7 g/dL Albumin/Globulin Ratio 0.6 (1.0-2.7) L Plan Problems: (1) Hypercarbia (2) Pleural effusion (3) Chronic renal failure (4) Anemia (5) CHF (congestive heart failure) (6) Bacteremia (7) Cellulitis Assessment & Plan: improving no active bleeding reyessheryl ley will monitor (8) Hypoglycemia (9) Hyponatremia (10) ATN (acute tubular necrosis) (11) Metabolic acidosis Assessment & Plan: DYSPHAGIA RISK FACTORS INCLUDE: RESPIRATORY WELL MULTIPLE MEDICAL COMPLICATIONS, SHORTNESS OF BREATH, WORK OF BREATHING, DECREASED MENTATION, HX OF SUBOPTIMAL P.O. INTAKE, LETHARGY (DIFFICULTY SUSTAINING WAKEFULNESS) , CLINICAL HISTORY: AMS CURRENT CXR: Indication: Shortness of breath Technique: One view of the chest Comparison: 10/31/2019 Findings: Interim placement of nasogastric tube, tip projected at the level of the gastric body. This was also demonstrated on 11/01/2019 abdominal radiograph. Bilateral hazy opacity appears similar to or perhaps slightly increased from the prior study. Generalized mild interstitial prominence persists. 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 TRIALS OF ICE CHIPS, ONE AT A TIME. LINGUAL SIZE PRESENTS ENLARGED. PATIENT PERSISTENTLY MOUTH BREATHING. WHEN PRESENTED WITH ONE ICE CHIP HE MANIPULATED IT, ALLOWED IT TO MELT ON HIS TONGUE AND AFTER A MODERATE DELAY, HE SWALLOWED. RR CHANGES FROM 18 BREATHS PER MINUTE TO 25 BREATHS PER MINUTE ALONG WITH WORK OF BREATHING. WHEN ASKED TO SAY "AH" POST SWALLOW, PATIENTS VOCAL QUALITY WAS WET/GURGLY. HYOLARYNGEAL EXCURSION PRESENTED MODERATELY DECREASED. PATIENT ESSENTIALLY NON/VERBAL THIS AFTERNOON. HIGH ASPIRATION RISK. HIS RISK FOR CONSISTENT/STABLE/SUFFICIENT P.O. INTAKE TO SUPPORT NUTRITION/HYDRATION NEEDS. RECOMMENDATIONS: 1. CONTINUE NON/ORAL FEEDING MANAGEMENT PRIMARY SOURCE OF NUTRITION/ HYDRATION/MEDICATION 2. NPO STATUS 3. RE/ORDER SWALLOW EVALUATION IF/WHEN PATIENTS MEDICAL STATUS STABILIZES. DAILY ESTIMATED NEEDS: Needs based on Critical care, wound 71kg abw 22-28 kcals/kg 2695-1257 total kcals 1.25-2 g protein/kg 88-154 g total protein 25-30 mL/kg 6023-4322 total fluid mLs NUTRITION DIAGNOSIS: 1) Swallowing difficulty r/t respiratory status as evidenced by pt is vent dep via trach, GT dep. 2) Increased kcal/prot needs R/T wound healing as evidenced by pt admitted w/ multiple wounds including full thickness x3, refer to wound care eval for full report. CURRENT TF:NPO ENTERAL NUTRITION RECOMMENDATIONS: Glucerna 1.2 @60ml/hr x24 hrs + Prosource 1pkt QD to provide 1440ml, 1728 kcal, 86g +11g pro, 1159ml free H2o - As medically appropriate, initiate Glucerna 1.2 @ 30ml/hr x 6hrs - Advance 10ml q 4-6 hrs as tolerated to goal rate - Add Prosource 1pkt daily to better meet protein needs - HOB over 30 degrees/ water flush 120ml q 4hrs PARENTERAL NUTRITION RECOMMENDATIONS TPN Comment: Rec TPN to meet est needs with anticipated prolonged NPO status ADDITIONAL RECOMMENDATIONS: 1) Calibrated bedscale wt 2) Rec adding D5 IVF while pt is NPO to prevent hypoglycemia 3) Monitor lytes w/ TF, replete as needed 4) Wound healing: Vit C 250mg BID + SILVESTRE BID w/ TF orders 5) Monitor need for NISS w/ TF: h/o DM 6) Consider TPN w/ anticipated prolonged NPO status Hardware: Nasogastric tube terminates in the region of the stomach. Distal portion of a central venous catheter terminates in the junction of the SVC and right atrium. Abdomen: Nonspecific partially visualized bowel gas pattern. No free air. Bones: Normal. Soft tissues: Normal. Visualized chest: Hazy and interstitial opacities and right greater than left lungs. Atherosclerotic calcifications of the aorta. Borderline size of the cardiac silhouette. IMPRESSION: Nasogastric tube terminates in the region of the stomach. (12) Pneumonia (13) Cellulitis of foot Assessment & Plan: Pt presented on admission with Bilat TMA. Pressure injuries both heels. Stable dry necrosis note to Plantar /lateral L TMA. L Heel is boggy with non- Blanchable erythema. . R Heel Boggy with Non-Blanchable erythema.Haemosiderin with Xerosis skin noted to R and L lower ext. Darker skin tone without erythema , induration or fluctuance Medial L Malleolus. Darker skin tone without erythema or induration noted to sacrum. Tx.Plan: Apply Moisture Barrier Paste to Sacrum. Cover with Optifoam drsg.Change every 3 days and prn. Apply Betadine to eschar plantar/lateral L TMA . Cover with Optifoam drsg. Change every 3 days and prn. Apply Cavilon Skin Barrier to both heels and Malleoli. Cover each site with Optifoam drsg. Change every 7days and prn. Reposition at least every 2hours or as tolerated. Off load heels with pillow.Hx prior amputation prior MRI and plain films reviewed wounds stable and local care being provided no abscess noted cont with dressings elevate heels with pillow turn q2h off load pressure air mattress will follow with recs thank you (14) Osteomyelitis (15) History of hypertension (16) Renal failure (ARF), acute on chronic Assessment & Plan: HD line removed 11/09 (17) Acute encephalopathy (18) Diabetes mellitus (19) Hypertension (20) Cholelithiasis Assessment & Plan: US reviewed exam benign asymptomatic cholelithiasis alk phos mild elevated lfts improved trend labs no acute surgical intervention planned Liver: Liver measures 14.8 cm. No intrahepatic bile duct dilation. Gallbladder: Small stone in the gallbladder. No significant gallbladder wall thickening or pericholecystic fluid. Negative sonographic Bianchi's sign. Common bile duct: Normal common bile duct measuring 4.5 mm. No stones. No dilation. Pancreas: Pancreas is not visualized due to overlying bowel gas. Kidneys: Right kidney measures 9.1 cm in length. No hydronephrosis or stone. Left kidney not visualized due to patient's body habitus. Spleen: Spleen measures 9.4 cm. No focal lesion. Aorta: Visualized portions of the aorta are grossly unremarkable. The mid and distal portions are obscured by bowel gas. Inferior vena cava: Unremarkable. Free fluid: No ascites. Tubes, lines and devices: Reyes catheter in a decompressed bladder. IMPRESSION: Small stone in the gallbladder. No significant gallbladder wall thickening or pericholecystic fluid. Negative sonographic Bianchi's sign. Mariusz Diehl Nov 16, 2019 14:06
[2019-11-16 16:00] VITALS: BP 128/61
[2019-11-16 20:00] VITALS: BP 146/59
--- NOTE | 2019-11-16 20:03 | Pulmonology Progress Note ---
Subjective ROS Limited/Unobtainable: No Constitutional: Denies: no symptoms, fever, chills, fatigue, anorexia, drenching sweats, other Respiratory: Reports: no symptoms, dry cough, productive cough, sputum, hemoptysis, shortness of breath, dyspnea at rest, dyspnea on exertion, wheezing , pleuritic pain, other Cardiovascular: Reports: no symptoms, chest pain, palpitations, other Neurologic: Reports: no symptoms, headache, numbness, weakness, confusion, syncope, seizures, other Allergies: Coded Allergies: PENICILLINS (Verified Allergy, Unknown, 10/25/19) tolerated Ceftriaxone All Systems: reviewed and negative except above Subjective Patient still having his NG tube and claimed to be able to eat without any pharmacy sales assistant however report reviewed with patient need instruction on swallowing. Objective Last 24 Hour Vital Signs Date Time Temp Pulse Resp B/P (MAP) Pulse Ox O2 Delivery O2 Flow Rate FiO2 11/16/19 16:00 96.7 65 20 128/61 (83) 99 11/16/19 12:00 96.8 63 19 123/50 (74) 99 11/16/19 09:44 77 140/71 11/16/19 09:42 140/71 11/16/19 09:42 77 140/71 11/16/19 09:00 Nasal Cannula 2.0 11/16/19 08:00 98.8 77 19 140/71 (94) 98 11/16/19 07:58 98 Nasal Cannula 2.0 28 11/16/19 04:00 99.0 76 19 137/68 (91) 98 11/16/19 00:00 98.7 90 19 128/63 (84) 96 11/15/19 21:00 Nasal Cannula 2.0 Nasal Cannula 2.0 11/15/19 20:24 98 Nasal Cannula 2.0 28 11/15/19 20:22 127/48 11/15/19 20:22 77 127/48 11/15/19 20:00 99.8 93 19 122/68 (86) 97 Intake and Output 11/15/19 11/16/19 19:00 07:00 Intake Total 680 ml 320 ml Output Total 700 ml 300 ml Balance -20 ml 20 ml Free Water 200 ml 120 ml Tube Feeding 480 ml 200 ml Output Urine Total 700 ml 300 ml # Bowel Movements 1 General Appearance: no acute distress HEENT: mucous membranes moist, supple, no JVD Respiratory: lungs clear Cardiovascular: normal rate, regular rhythm Abdomen: normal bowel sounds, soft, non tender, non distended, no mass Extremities: no cyanosis, no clubbing, no edema Neurologic: oriented x 3, responsive Laboratory Tests 11/16/19 05:10: White Blood Count 7.0, Red Blood Count 2.94L, Hemoglobin 8.7L, Hematocrit 29.5L , Mean Corpuscular Volume 100H, Mean Corpuscular Hemoglobin 29.6, Mean Corpuscular Hemoglobin Concent 29.5L, Red Cell Distribution Width 15.4H, Platelet Count 263, Mean Platelet Volume 6.7, Neutrophils (%) (Auto) 79.6H, Lymphocytes (%) (Auto) 15.4L, Monocytes (%) (Auto) 3.3, Eosinophils (%) (Auto) 1.0, Basophils (%) (Auto) 0.6, Sodium Level 141, Potassium Level 4.5, Chloride Level 102, Carbon Dioxide Level 35H, Anion Gap 4L, Blood Urea Nitrogen 79H, Creatinine 3.2H, Estimat Glomerular Filtration Rate 18.7, Glucose Level 123H, Uric Acid 7.1, Calcium Level 9.9, Phosphorus Level 3.7, Magnesium Level 3.0H, Total Bilirubin 0.4, Aspartate Amino Transf (AST/SGOT) 21, Alanine Aminotransferase (ALT/SGPT) 16, Alkaline Phosphatase 125H, C-Reactive Protein, Quantitative 2.9H, Pro-B-Type Natriuretic Peptide 02517S, Total Protein 6.0L, Albumin 2.3L, Globulin 3.7, Albumin/Globulin Ratio 0.6L Current Medications Medications (Trade) Dose Ordered Sig/Cammy Route PRN Reason Start Time Stop Time Status Last Admin Dose Admin Acetaminophen (Tylenol) 650 mg Q6H PRN NG Pain 3-5 11/14/19 12:00 12/02/19 00:00 11/16/19 09:43 Amlodipine Besylate (Norvasc) 10 mg DAILY NG 11/15/19 09:00 11/25/19 08:59 11/16/19 09:44 Atorvastatin Calcium (Lipitor) 10 mg BEDTIME NG 11/14/19 21:00 01/21/20 20:59 11/15/19 20:21 Chlorhexidine Gluconate (Yi-Hex 2%) 1 applic DAILY@1999 TOPIC 11/14/19 20:00 01/31/20 19:59 11/15/19 20:21 Clonidine HCl (Catapres TTS-1) 1 patch QWEEK TDERMAL 11/19/19 19:00 02/10/20 18:59 Dextrose (Dextrose 50%) 25 ml Q30M PRN IV Hypoglycemia 11/14/19 10:45 01/20/20 21:44 Dextrose (Dextrose 50%) 50 ml Q30M PRN IV Hypoglycemia 11/14/19 10:45 01/20/20 21:44 Docusate Sodium (Colace) 100 mg THREE TIMES A DAY NG 11/14/19 13:00 12/02/19 17:59 11/16/19 17:44 Doxazosin Mesylate (Cardura) 2 mg DAILY ORAL 11/15/19 09:00 12/15/19 08:59 11/16/19 09:42 Epoetin William (Epoetin William(ESRD on dialysis)) 10,000 unit SUBQ 11/15/19 21:00 02/01/20 20:59 11/15/19 20:22 Haloperidol (Haldol) 5 mg Q12H PRN NG Agitation 11/14/19 12:00 12/26/19 00:00 Haloperidol Lactate (Haldol) 5 mg Q6H PRN IM Agitation 11/14/19 12:00 12/10/19 00:00 11/14/19 20:54 Insulin Aspart (NovoLOG) Q6HR SUBQ 11/14/19 12:00 01/31/20 06:29 11/16/19 18:04 Lactulose (Cephulac) 10 gm BID NG 11/14/19 18:00 12/01/19 08:59 11/16/19 17:44 Lansoprazole (Prevacid) 30 mg DAILY NG 11/15/19 09:00 12/11/19 08:59 11/16/19 09:42 Levothyroxine Sodium (Synthroid) 75 mcg DAILY@0630 NG 11/15/19 06:30 12/04/19 06:29 11/15/19 05:48 Lisinopril (PriniviL) 20 mg Q12HR NG 11/15/19 21:00 12/13/19 20:59 11/16/19 09:42 Metoprolol Tartrate (Lopressor) 50 mg Q12HR NG 11/15/19 09:00 02/13/20 08:59 11/16/19 09:42 Polyethylene Glycol (Miralax) 17 gm BEDTIME NG 11/14/19 21:00 12/01/19 20:59 11/14/19 22:08 Sennosides (Senokot) 8.6 mg HSPRN PRN NG Constipation 11/14/19 12:00 12/14/19 11:59 Ayush Chang MD Nov 16, 2019 20:03
[2019-11-16] MEDS: Dyna-Hex 2% Top Sol 2oz TOPIC SCH (21:00)
[2019-11-16] MEDS: Miralax 17gm pkt NG SCH (21:00)
--- NOTE | 2019-11-16 23:49 | Psych Consult Progress Note ---
Psychiatry Progress Note Psychiatry Progress Note Subjective the pts mental condition is unchanged confused agitations disoriented Medications Current Medications Medications (Trade) Dose Ordered Sig/Cammy Route PRN Reason Start Time Stop Time Status Last Admin Dose Admin Acetaminophen (Tylenol) 650 mg Q6H PRN NG Pain 3-5 11/14/19 12:00 12/02/19 00:00 11/16/19 09:43 Amlodipine Besylate (Norvasc) 10 mg DAILY NG 11/15/19 09:00 11/25/19 08:59 11/16/19 09:44 Atorvastatin Calcium (Lipitor) 10 mg BEDTIME NG 11/14/19 21:00 01/21/20 20:59 11/16/19 21:00 Chlorhexidine Gluconate (Yi-Hex 2%) 1 applic DAILY@1999 TOPIC 11/14/19 20:00 01/31/20 19:59 11/16/19 21:00 Clonidine HCl (Catapres TTS-1) 1 patch QWEEK TDERMAL 11/19/19 19:00 02/10/20 18:59 Dextrose (Dextrose 50%) 25 ml Q30M PRN IV Hypoglycemia 11/14/19 10:45 01/20/20 21:44 Dextrose (Dextrose 50%) 50 ml Q30M PRN IV Hypoglycemia 11/14/19 10:45 01/20/20 21:44 Docusate Sodium (Colace) 100 mg THREE TIMES A DAY NG 11/14/19 13:00 12/02/19 17:59 11/16/19 17:44 Doxazosin Mesylate (Cardura) 2 mg DAILY ORAL 11/15/19 09:00 12/15/19 08:59 11/16/19 09:42 Epoetin William (Epoetin William(ESRD on dialysis)) 10,000 unit FRI-FRI-FRI SUBQ 11/15/19 21:00 02/01/20 20:59 11/15/19 20:22 Haloperidol (Haldol) 5 mg Q12H PRN NG Agitation 11/14/19 12:00 12/26/19 00:00 Haloperidol Lactate (Haldol) 5 mg Q6H PRN IM Agitation 11/14/19 12:00 12/10/19 00:00 11/14/19 20:54 Insulin Aspart (NovoLOG) Q6HR SUBQ 11/14/19 12:00 01/31/20 06:29 11/16/19 18:04 Lactulose (Cephulac) 10 gm BID NG 11/14/19 18:00 12/01/19 08:59 11/16/19 17:44 Lansoprazole (Prevacid) 30 mg DAILY NG 11/15/19 09:00 12/11/19 08:59 11/16/19 09:42 Levothyroxine Sodium (Synthroid) 75 mcg DAILY@0630 NG 11/15/19 06:30 12/04/19 06:29 11/15/19 05:48 Lisinopril (PriniviL) 20 mg Q12HR NG 11/15/19 21:00 12/13/19 20:59 11/16/19 21:00 Metoprolol Tartrate (Lopressor) 50 mg Q12HR NG 11/15/19 09:00 02/13/20 08:59 11/16/19 21:00 Polyethylene Glycol (Miralax) 17 gm BEDTIME NG 11/14/19 21:00 12/01/19 20:59 11/16/19 21:00 Sennosides (Senokot) 8.6 mg HSPRN PRN NG Constipation 11/14/19 12:00 12/14/19 11:59 Neurological/Psychiatric: Reports: anxiety, emotional problems; Denies: no symptoms, depressed, headache, numbness, paresthesia, pre-existing deficit, seizure, tingling, tremors, weakness, other Allergies: Coded Allergies: PENICILLINS (Verified Allergy, Unknown, 10/25/19) tolerated Ceftriaxone Objective Data Height (Feet): 5 Height (Inches): 4.00 Weight (Pounds): 192 General Appearance: alert Appearance: no abnormalities noted Behavior Mannerisms: good eye contact Mental Status Exam - Affect: blunted Mental Status Exam - Mood: anxious, agitated Mental Status Exam - Thought P: tangential, confusion Mental Status Exam - Thought C: delusions (specify) Mental Status Exam - Suicidal: not present Additional Comments: awake, confused, and disoriented. Mood is agitated. Affect is flat. Thought process, there is a paucity of thought content. Thought content, no suicidal or homicidal ideation. Cognition is impaired. Insight and judgment impaired. Dada Finch MD Nov 16, 2019 23:49
[2019-11-17] VITALS (15 sets, daily range): BP systolic 103–152; BP diastolic 38–75
[2019-11-17] MEDS: Acetaminophen 650mg/20.3ml NG PRN (01:58)
[2019-11-17] MEDS: NovoLOG Insulin Flexpen SUBQ SCH ×4 (05:44→23:36)
[2019-11-17 06:46] LABS: BASOPHILS % (AUTO) 0.9 % (0.0-2.0); EOSINOPHILS % (AUTO) 1.2 % (0.0-3.0); HEMATOCRIT 27.3 % (42.0-52.0); LYMPHOCYTES % (AUTO) 16.1 % (20.0-45.0); MEAN CORPUSCULAR VOLUME 101 FL (80-99); MONOCYTES % (AUTO) 4.8 % (1.0-10.0); NEUTROPHILS % (AUTO) 76.9 % (45.0-75.0); PLATELET COUNT 258 K/UL (150-450); RED BLOOD COUNT 2.72 M/UL (4.70-6.10); RED CELL DISTRIBUTION WIDTH 15.7 % (11.6-14.8); WHITE BLOOD COUNT 5.9 K/UL (4.8-10.8)
[2019-11-17 07:37] LABS: ALANINE AMINOTRANSFERASE 10 U/L (12-78); ALBUMIN 2.3 G/DL (3.4-5.0); ALBUMIN/GLOBULIN RATIO 0.7 (1.0-2.7); ALKALINE PHOSPHATASE 109 U/L (46-116); ANION GAP 6 mmol/L (5-15); ASPARTATE AMINO TRANSFERASE 18 U/L (15-37); BILIRUBIN,TOTAL 0.4 MG/DL (0.2-1.0); BLOOD UREA NITROGEN 87 mg/dL (7-18); CALCIUM 9.5 MG/DL (8.5-10.1); CARBON DIOXIDE 34 MMOL/L (21-32); CHLORIDE 102 MMOL/L (98-107); CREATININE 3.4 MG/DL (0.55-1.30); PHOSPHORUS 4.8 MG/DL (2.5-4.9); POTASSIUM 4.8 MMOL/L (3.5-5.1); SODIUM 141 MMOL/L (136-145)
--- NOTE | 2019-11-17 07:44 | Hematology/Onc Progress Note ---
Assessment/Plan Assessment/Plan ASSESSMENT AND RECOMMENDATIONS: # Anemia of chronic disease due to underlying chronic medical issues, multifactorial --> Anemia w/u has been reviewed. --> no evidence of hemolysis is noted, peripheral smear has been reviewed --> hgb goal is >7, transfuse as needed --> currently remains stable, occult blood negative --> hgb 8.4->8.6->8.3->8->8.2->9.2-->9.2->8.9-->8.1-->8.7>9.4-->8.7-->8 --> some blood loss due to hematuria after inflated reyes pulled 8/6 am --> EPOGEN Started # Acute kidney injury r/o potential reversible component --> reviewed meds, those that are renally cleared removed --> as per renal recs, appreciated --> cr 3.5-->4.2 --> Hd started and dw renal # Hypertension, essential --> sbp goal is <140, consider anti-htn as needed --> currently started on hyralazine 25mg po q6h prn sbp >140 # CHF - hx of CHf --> diuresis with lasix as needed --> cardiology recs appreciated prior adm #. Leukocytosis with underlying infectionv stress reaction HISTORY --> per id and better --> for infection, ABX ctx/vanc-->off --> wbc 10-->5.9 #. Bilateral lower extremity amputee, metatarsal several years ago #. Dysphagia s/p peg --> peg pulled out and now with gtube #. Hyperkalemia -- kayxelate as needed #. Agitation requires restraints #. Dvt ppx scds --> apixaban->off for catheter placement 11/07 The time the note was entered does not necessarily correspond to the time the patient was seen. GREATLY APPRECIATE CONSULTATION. Subjective Constitutional: Denies: no symptoms, chills, fever, malaise, weakness, other HEENT: Denies: no symptoms, eye pain, blurred vision, tearing, double vision, ear pain, ear discharge, nose pain, nose congestion, throat pain, throat swelling, mouth pain, mouth swelling, other Cardiovascular: Denies: no symptoms, chest pain, edema, irregular heart rate, lightheadedness, palpitations, syncope, other Respiratory: Denies: no symptoms, cough, shortness of breath, SOB with excertion, SOB at rest, sputum, wheezing, other Gastrointestinal/Abdominal: Denies: no symptoms, abdomen distended, abdominal pain, black stools, tarry stools, blood in stool, constipated, diarrhea, difficulty swallowing, nausea, poor appetite, poor fluid intake, rectal bleeding , vomiting, other Genitourinary: Denies: no symptoms, burning, discharge, frequency, flank pain, hematuria, incontinence, pain, urgency, other Neurologic/Psychiatric: Denies: no symptoms, anxiety, depressed, emotional problems, headache, numbness, paresthesia, pre-existing deficit, seizure, tingling, tremors, weakness, other Allergies: Coded Allergies: PENICILLINS (Verified Allergy, Unknown, 10/25/19) tolerated Ceftriaxone Subjective 10/[address] Chang, to do best to avoid haldol, continue restraints, jag salas, on nc, feeling better 10/25 still with some agitation overnight, meds reviewed, jag salas, haldol given in AM 10/26 is on 2l nc, also is on restraints, no night sweats, no bleeding 10/27 reyes catheter has been removed by patient, and resinserted, bed sheets, with bright red blood on exam 10/28 labs are noted, no bleeding, cr is worse, seen by renal, remains edematous 11/04 no major changes, hd as per renal, recs are noted, labs reviewed, pending neuro eval 11/05 is on bipap with restraints, no major changes, no bleeding, labs noted 11/06 remains agitated, is off eliquis for catheter placement for tuesday 11/07 on bipap, remains agitated, jag salas, procedure today 11/08 remains confused, no bleeding, meds noted, hgb 8.9, may need peg 11/09 on bipap, remains confused in restraints, jag salas, hgb lower 11/10 no new events, overnight bipap, now 2oxygen nc, cbc is pending, right chest pc 11/11 ngtube was pulled out, jag salas, on nc, holding dc, restraints needed 11/13 gtube was pulled out and now with ngt, no bleeding, jag salas 11/14 ng was taken out again, and reinserted by ashely rn, jag rn in am 11/15 remains with ng now, for peg scheduled today, labs noted, afebrile 11/16 no bleeding noted, no hemolysis, hgb remains approx 8 Objective Objective Current Medications Medications (Trade) Dose Ordered Sig/Cammy Route PRN Reason Start Time Stop Time Status Last Admin Dose Admin Acetaminophen (Tylenol) 650 mg Q6H PRN NG Pain 3-5 11/14/19 12:00 12/02/19 00:00 11/17/19 01:58 Amlodipine Besylate (Norvasc) 10 mg DAILY NG 11/15/19 09:00 11/25/19 08:59 11/16/19 09:44 Atorvastatin Calcium (Lipitor) 10 mg BEDTIME NG 11/14/19 21:00 01/21/20 20:59 11/16/19 21:00 Chlorhexidine Gluconate (Yi-Hex 2%) 1 applic DAILY@2000 TOPIC 11/14/19 20:00 01/31/20 19:59 11/16/19 21:00 Clonidine HCl (Catapres TTS-1) 1 patch QWEEK TDERMAL 11/19/19 19:00 02/10/20 18:59 Dextrose (Dextrose 50%) 25 ml Q30M PRN IV Hypoglycemia 11/14/19 10:45 01/20/20 21:44 Dextrose (Dextrose 50%) 50 ml Q30M PRN IV Hypoglycemia 11/14/19 10:45 01/20/20 21:44 Docusate Sodium (Colace) 100 mg THREE TIMES A DAY NG 11/14/19 13:00 12/02/19 17:59 11/16/19 17:44 Doxazosin Mesylate (Cardura) 2 mg DAILY ORAL 11/15/19 09:00 12/15/19 08:59 11/16/19 09:42 Epoetin William (Epoetin William(ESRD on dialysis)) 10,000 unit FRI-FRI-FRI SUBQ 11/15/19 21:00 02/01/20 20:59 11/15/19 20:22 Haloperidol (Haldol) 5 mg Q12H PRN NG Agitation 11/14/19 12:00 12/26/19 00:00 Haloperidol Lactate (Haldol) 5 mg Q6H PRN IM Agitation 11/14/19 12:00 12/10/19 00:00 11/14/19 20:54 Insulin Aspart (NovoLOG) Q6HR SUBQ 11/14/19 12:00 01/31/20 06:29 11/16/19 18:04 Lactulose (Cephulac) 10 gm BID NG 11/14/19 18:00 12/01/19 08:59 11/16/19 17:44 Lansoprazole (Prevacid) 30 mg DAILY NG 11/15/19 09:00 12/11/19 08:59 11/16/19 09:42 Levothyroxine Sodium (Synthroid) 75 mcg DAILY@0630 NG 11/15/19 06:30 12/04/19 06:29 11/15/19 05:48 Lisinopril (PriniviL) 20 mg Q12HR NG 11/15/19 21:00 12/13/19 20:59 11/16/19 21:00 Metoprolol Tartrate (Lopressor) 50 mg Q12HR NG 11/15/19 09:00 02/13/20 08:59 11/16/19 21:00 Polyethylene Glycol (Miralax) 17 gm BEDTIME NG 11/14/19 21:00 12/01/19 20:59 11/16/19 21:00 Sennosides (Senokot) 8.6 mg HSPRN PRN NG Constipation 11/14/19 12:00 12/14/19 11:59 Last 24 Hour Vital Signs Date Time Temp Pulse Resp B/P (MAP) Pulse Ox O2 Delivery O2 Flow Rate FiO2 11/17/19 04:00 98.0 74 20 139/52 (81) 96 11/17/19 00:00 98.7 65 18 142/63 (89) 96 11/16/19 21:00 146/59 11/16/19 21:00 70 146/59 11/16/19 20:13 Nasal Cannula 2.0 11/16/19 20:00 98.5 70 17 146/59 (88) 96 11/16/19 19:00 98 Nasal Cannula 2.0 28 11/16/19 16:00 96.7 65 20 128/61 (83) 99 11/16/19 12:00 96.8 63 19 123/50 (74) 99 11/16/19 09:44 77 140/71 11/16/19 09:42 140/71 11/16/19 09:42 77 140/71 11/16/19 09:00 Nasal Cannula 2.0 11/16/19 08:00 98.8 77 19 140/71 (94) 98 11/16/19 07:58 98 Nasal Cannula 2.0 28 11/16/19 04:00 99.0 76 19 137/68 (91) 98 11/16/19 00:00 98.7 90 19 128/63 (84) 96 11/15/19 21:00 Nasal Cannula 2.0 Nasal Cannula 2.0 11/15/19 20:24 98 Nasal Cannula 2.0 28 11/15/19 20:22 127/48 11/15/19 20:22 77 127/48 11/15/19 20:00 99.8 93 19 122/68 (86) 97 11/15/19 16:00 98.4 86 20 139/82 (101) 99 11/15/19 12:00 98.0 87 20 140/79 (99) 98 11/15/19 09:14 144/75 11/15/19 09:13 84 144/75 11/15/19 09:13 84 144/75 11/15/19 09:00 Nasal Cannula 2.0 Nasal Cannula 2.0 11/15/19 08:00 97.7 84 20 144/75 (98) 97 Intake and Output 11/16/19 11/17/19 19:00 07:00 Output Total 350 ml 500 ml Balance -350 ml -500 ml Output Urine Total 350 ml 500 ml # Voids 1 # Bowel Movements 1 Labs Test 11/14/19 11:28 11/14/19 18:41 11/15/19 05:50 11/15/19 11:58 POC Whole Blood Glucose 173 MG/DL (74-106) 156 MG/DL (74-106) White Blood Count 8.3 K/UL (4.8-10.8) Red Blood Count 2.95 M/UL (4.70-6.10) Hemoglobin 8.8 G/DL (14.2-18.0) Hematocrit 30.0 % (42.0-52.0) Mean Corpuscular Volume 102 FL (80-99) Mean Corpuscular Hemoglobin 29.9 PG (27.0-31.0) Mean Corpuscular Hemoglobin Concent 29.4 G/DL (32.0-36.0) Red Cell Distribution Width 16.2 % (11.6-14.8) Platelet Count 290 K/UL (150-450) Mean Platelet Volume 6.4 FL (6.5-10.1) Neutrophils (%) (Auto) 83.5 % (45.0-75.0) Lymphocytes (%) (Auto) 11.0 % (20.0-45.0) Monocytes (%) (Auto) 3.7 % (1.0-10.0) Eosinophils (%) (Auto) 1.2 % (0.0-3.0) Basophils (%) (Auto) 0.6 % (0.0-2.0) Sodium Level 141 MMOL/L (136-145) Potassium Level 4.8 MMOL/L (3.5-5.1) Chloride Level 102 MMOL/L (98-107) Carbon Dioxide Level 35 MMOL/L (21-32) Anion Gap 4 mmol/L (5-15) Blood Urea Nitrogen 67 mg/dL (7-18) Creatinine 2.8 MG/DL (0.55-1.30) Estimat Glomerular Filtration Rate 21.9 mL/min (>60) Glucose Level 170 MG/DL (74-106) Calcium Level 9.1 MG/DL (8.5-10.1) Phosphorus Level 3.9 MG/DL (2.5-4.9) Magnesium Level 2.7 MG/DL (1.8-2.4) Total Bilirubin 0.3 MG/DL (0.2-1.0) Aspartate Amino Transf (AST/SGOT) 23 U/L (15-37) Alanine Aminotransferase (ALT/SGPT) 10 U/L (12-78) Alkaline Phosphatase 130 U/L (46-116) C-Reactive Protein, Quantitative 4.9 mg/dL (0.00-0.90) Pro-B-Type Natriuretic Peptide 91184 pg/mL (0-125) Total Protein 6.4 G/DL (6.4-8.2) Albumin 2.3 G/DL (3.4-5.0) Globulin 4.1 g/dL Albumin/Globulin Ratio 0.6 (1.0-2.7) Test 11/16/19 05:10 11/17/19 04:49 White Blood Count 7.0 K/UL (4.8-10.8) 5.9 K/UL (4.8-10.8) Red Blood Count 2.94 M/UL (4.70-6.10) 2.72 M/UL (4.70-6.10) Hemoglobin 8.7 G/DL (14.2-18.0) 8.0 G/DL (14.2-18.0) Hematocrit 29.5 % (42.0-52.0) 27.3 % (42.0-52.0) Mean Corpuscular Volume 100 FL (80-99) 101 FL (80-99) Mean Corpuscular Hemoglobin 29.6 PG (27.0-31.0) 29.4 PG (27.0-31.0) Mean Corpuscular Hemoglobin Concent 29.5 G/DL (32.0-36.0) 29.2 G/DL (32.0-36.0) Red Cell Distribution Width 15.4 % (11.6-14.8) 15.7 % (11.6-14.8) Platelet Count 263 K/UL (150-450) 258 K/UL (150-450) Mean Platelet Volume 6.7 FL (6.5-10.1) 7.2 FL (6.5-10.1) Neutrophils (%) (Auto) 79.6 % (45.0-75.0) 76.9 % (45.0-75.0) Lymphocytes (%) (Auto) 15.4 % (20.0-45.0) 16.1 % (20.0-45.0) Monocytes (%) (Auto) 3.3 % (1.0-10.0) 4.8 % (1.0-10.0) Eosinophils (%) (Auto) 1.0 % (0.0-3.0) 1.2 % (0.0-3.0) Basophils (%) (Auto) 0.6 % (0.0-2.0) 0.9 % (0.0-2.0) Sodium Level 141 MMOL/L (136-145) 141 MMOL/L (136-145) Potassium Level 4.5 MMOL/L (3.5-5.1) 4.8 MMOL/L (3.5-5.1) Chloride Level 102 MMOL/L (98-107) 102 MMOL/L (98-107) Carbon Dioxide Level 35 MMOL/L (21-32) 34 MMOL/L (21-32) Anion Gap 4 mmol/L (5-15) 6 mmol/L (5-15) Blood Urea Nitrogen 79 mg/dL (7-18) 87 mg/dL (7-18) Creatinine 3.2 MG/DL (0.55-1.30) 3.4 MG/DL (0.55-1.30) Estimat Glomerular Filtration Rate 18.7 mL/min (>60) 17.5 mL/min (>60) Glucose Level 123 MG/DL (74-106) 126 MG/DL (74-106) Uric Acid 7.1 MG/DL (2.6-7.2) Calcium Level 9.9 MG/DL (8.5-10.1) 9.5 MG/DL (8.5-10.1) Phosphorus Level 3.7 MG/DL (2.5-4.9) 4.8 MG/DL (2.5-4.9) Magnesium Level 3.0 MG/DL (1.8-2.4) 3.0 MG/DL (1.8-2.4) Total Bilirubin 0.4 MG/DL (0.2-1.0) 0.4 MG/DL (0.2-1.0) Aspartate Amino Transf (AST/SGOT) 21 U/L (15-37) 18 U/L (15-37) Alanine Aminotransferase (ALT/SGPT) 16 U/L (12-78) 10 U/L (12-78) Alkaline Phosphatase 125 U/L (46-116) 109 U/L (46-116) C-Reactive Protein, Quantitative 2.9 mg/dL (0.00-0.90) Pro-B-Type Natriuretic Peptide 30601 pg/mL (0-125) Total Protein 6.0 G/DL (6.4-8.2) 5.7 G/DL (6.4-8.2) Albumin 2.3 G/DL (3.4-5.0) 2.3 G/DL (3.4-5.0) Globulin 3.7 g/dL 3.4 g/dL Albumin/Globulin Ratio 0.6 (1.0-2.7) 0.7 (1.0-2.7) Height (Feet): 5 Height (Inches): 5.00 Weight (Pounds): 193 Objective GENERAL: Not in acute distress. HEENT: ++ngt PULMONARY: Decreased breath sounds. ++ bipap CHEST: ++permacath CARDIOVASCULAR: Regular rate. No S3 or S4. ABDOMEN: Soft, nontender, nondistended. EXTREMITIES: 1+ edema. No cyanosis, swelling, or edema. 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 Melvin Rizzo MD Nov 17, 2019 07:44
[2019-11-17] MEDS: Doxazosin 4mg tab ORAL SCH (08:54)
[2019-11-17] MEDS: Lactulose 10gm/15ml UDC NG SCH ×2 (08:54→17:31)
[2019-11-17] MEDS: Docusate 100mg/10ml Liq NG SCH ×3 (08:54→17:31)
[2019-11-17] MEDS: Lisinopril 20mg tab NG SCH ×2 (08:55→20:42)
[2019-11-17] MEDS: Metoprolol Tartrate 50mg tab NG SCH ×2 (08:55→20:41)
--- NOTE | 2019-11-17 09:03 | Pre-Procedure Note/Attestation ---
Pre-Procedure Note/Attestation Complete Prior to Procedure Procedure Narrative: egd/peg Indications for Procedure Pre-Operative Diagnosis: dysphagia Attestation I attest that I discussed the nature of the procedure; its benefits; risks and complications; and alternatives (and the risks and benefits of such alternatives ), prior to the procedure, with the patient (or the patient's legal telephone claims representative). I attest that, if there was a reasonable possibility of needing a blood transfusion, the patient (or the patient's legal telephone claims representative) was given the [facility] standardized written summary, pursuant to the [place] Blood Safety Act ([place] Health and Safety Code # 1645, as amended). I attest that I re-evaluated the patient just prior to the surgery and that there has been no change in the patient's H&P, except as documented below: Lawrence Humphreys MD Nov 17, 2019 09:03
[2019-11-17] MEDS ORDERED: Clindamycin 600mg 50 ML IV SCH (10:00)
--- NOTE | 2019-11-17 10:36 | Pulmonology Progress Note ---
Reema Hanna [employer] 11/17/19 1036: Subjective ROS Limited/Unobtainable: No Constitutional: Denies: no symptoms, fever, chills, fatigue, anorexia, drenching sweats, other Respiratory: Reports: no symptoms, dry cough, productive cough, sputum, hemoptysis, shortness of breath, dyspnea at rest, dyspnea on exertion, wheezing , pleuritic pain, other Cardiovascular: Reports: no symptoms, chest pain, palpitations, other Neurologic: Reports: no symptoms, headache, numbness, weakness, confusion, syncope, seizures, other Allergies: Coded Allergies: PENICILLINS (Verified Allergy, Unknown, 10/25/19) tolerated Ceftriaxone All Systems: reviewed and negative except above Subjective on 2L O2 via NC BiPAP at HS no signs of resp distress pulled out G tube, failed swallow eval PEG pending for today Objective Last 24 Hour Vital Signs Date Time Temp Pulse Resp B/P (MAP) Pulse Ox O2 Delivery O2 Flow Rate FiO2 11/17/19 09:00 Nasal Cannula 2.0 11/17/19 08:55 152/75 11/17/19 08:55 71 152/75 11/17/19 08:55 71 152/75 11/17/19 08:14 96 Nasal Cannula 2.0 28 11/17/19 08:00 97.3 71 19 152/75 (100) 95 11/17/19 04:00 98.0 74 20 139/52 (81) 96 11/17/19 00:00 98.7 65 18 142/63 (89) 96 11/16/19 21:00 146/59 11/16/19 21:00 70 146/59 11/16/19 20:13 Nasal Cannula 2.0 11/16/19 20:00 98.5 70 17 146/59 (88) 96 11/16/19 19:00 98 Nasal Cannula 2.0 28 11/16/19 16:00 96.7 65 20 128/61 (83) 99 11/16/19 12:00 96.8 63 19 123/50 (74) 99 Intake and Output 11/16/19 11/17/19 19:00 07:00 Output Total 350 ml 500 ml Balance -350 ml -500 ml Output Urine Total 350 ml 500 ml # Voids 1 # Bowel Movements 1 Objective General Appearance: no apparent distress, Arabic speaking awake, more alert and responsive male, Lines, tubes and drains: R chest tunneled HD catheter , R femoral temporal HD catheter HEENT: normocephalic, atraumatic, anicteric, mucous membranes moist, O2 2 L via NC, Respiratory/Chest: few scattered crackles, no exp wheezing, Cardiovascular/Chest: normal rate, SR Abdomen: normal bowel sounds, non tender, soft Extremities: partially amputated BL foot/metatarsal Skin Exam: warm/dry Neurologic: abnormal gait, awake, more responsive responsive, Musculoskeletal: atrophy BLE General Appearance: no acute distress HEENT: mucous membranes moist, supple, no JVD Respiratory: lungs clear Cardiovascular: normal rate, regular rhythm Abdomen: normal bowel sounds, soft, non tender, non distended, no mass Extremities: no cyanosis, no clubbing, no edema Neurologic: oriented x 3, responsive Laboratory Tests 11/17/19 04:49: White Blood Count 5.9, Red Blood Count 2.72L, Hemoglobin 8.0L, Hematocrit 27.3L , Mean Corpuscular Volume 101H, Mean Corpuscular Hemoglobin 29.4, Mean Corpuscular Hemoglobin Concent 29.2L, Red Cell Distribution Width 15.7H, Platelet Count 258, Mean Platelet Volume 7.2, Neutrophils (%) (Auto) 76.9H, Lymphocytes (%) (Auto) 16.1L, Monocytes (%) (Auto) 4.8, Eosinophils (%) (Auto) 1.2, Basophils (%) (Auto) 0.9, Sodium Level 141, Potassium Level 4.8, Chloride Level 102, Carbon Dioxide Level 34H, Anion Gap 6, Blood Urea Nitrogen 87H, Creatinine 3.4H, Estimat Glomerular Filtration Rate 17.5, Glucose Level 126H, Calcium Level 9.5, Phosphorus Level 4.8, Magnesium Level 3.0H, Total Bilirubin 0.4, Aspartate Amino Transf (AST/SGOT) 18, Alanine Aminotransferase (ALT/SGPT) 10L, Alkaline Phosphatase 109, Total Protein 5.7L, Albumin 2.3L, Globulin 3.4, Albumin/Globulin Ratio 0.7L Current Medications Medications (Trade) Dose Ordered Sig/Cammy Route PRN Reason Start Time Stop Time Status Last Admin Dose Admin Acetaminophen (Tylenol) 650 mg Q6H PRN NG Pain 3-5 11/14/19 12:00 12/02/19 00:00 11/17/19 01:58 Amlodipine Besylate (Norvasc) 10 mg DAILY NG 11/15/19 09:00 11/25/19 08:59 11/17/19 08:55 Atorvastatin Calcium (Lipitor) 10 mg BEDTIME NG 11/14/19 21:00 01/21/20 20:59 11/16/19 21:00 Chlorhexidine Gluconate (Yi-Hex 2%) 1 applic DAILY@2000 TOPIC 11/14/19 20:00 01/31/20 19:59 11/16/19 21:00 Clindamycin Phosphate 50 ml @ 100 mls/hr ONCE IV 11/17/19 10:00 11/17/19 11:00 11/17/19 09:44 Clonidine HCl (Catapres TTS-1) 1 patch QWEEK TDERMAL 11/19/19 19:00 02/10/20 18:59 Dextrose (Dextrose 50%) 25 ml Q30M PRN IV Hypoglycemia 11/14/19 10:45 01/20/20 21:44 Dextrose (Dextrose 50%) 50 ml Q30M PRN IV Hypoglycemia 11/14/19 10:45 01/20/20 21:44 Docusate Sodium (Colace) 100 mg THREE TIMES A DAY NG 11/14/19 13:00 12/02/19 17:59 11/17/19 08:54 Doxazosin Mesylate (Cardura) 2 mg DAILY ORAL 11/15/19 09:00 12/15/19 08:59 11/17/19 08:54 Epoetin William (Epoetin William(ESRD on dialysis)) 10,000 unit SUBQ 11/15/19 21:00 02/01/20 20:59 11/15/19 20:22 Haloperidol (Haldol) 5 mg Q12H PRN NG Agitation 11/14/19 12:00 12/26/19 00:00 Haloperidol Lactate (Haldol) 5 mg Q6H PRN IM Agitation 11/14/19 12:00 12/10/19 00:00 11/14/19 20:54 Insulin Aspart (NovoLOG) Q6HR SUBQ 11/14/19 12:00 01/31/20 06:29 11/16/19 18:04 Lactulose (Cephulac) 10 gm BID NG 11/14/19 18:00 12/01/19 08:59 11/17/19 08:54 Lansoprazole (Prevacid) 30 mg DAILY NG 11/15/19 09:00 12/11/19 08:59 11/17/19 08:54 Levothyroxine Sodium (Synthroid) 75 mcg DAILY@0630 NG 11/15/19 06:30 12/04/19 06:29 11/15/19 05:48 Lisinopril (PriniviL) 20 mg Q12HR NG 11/15/19 21:00 12/13/19 20:59 11/17/19 08:55 Metoprolol Tartrate (Lopressor) 50 mg Q12HR NG 11/15/19 09:00 02/13/20 08:59 11/17/19 08:55 Polyethylene Glycol (Miralax) 17 gm BEDTIME NG 11/14/19 21:00 12/01/19 20:59 11/16/19 21:00 Sennosides (Senokot) 8.6 mg HSPRN PRN NG Constipation 11/14/19 12:00 12/14/19 11:59 Assessment/Plan Assessment/Plan ASSESSMENT Acute hypoxemic hypercapnic respiratory failure requiring BiPAP Acute metabolic encephalopathy likely due to hypoglycemia Diabetes mellitus with initial hypoglycemia Probably pneumonia , s/p Rx Aspiration risk Dysphagia , s/p PEG , pulled out Acute kidney injury on chronic kidney disease, requiring start of HD 10/30 Severe anemia requiring blood transfusion Metabolic acidosis Electrolyte imbalance :hyponatremia, hyperkalemia HTN with HTN urgency Hematuria 2 to pt pulled off his Lyles catheter Possibly DAYANA PLAN OF CARE [place] floor BiPAP at HS and prn currently on O2 2 L via NC titrate O2, pulm toilet patient likely has DAYANA. recommend sleep study as OP CXR 11/02 -> Stable slightly increased bilateral pleural effusions. 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 No hydronephrosis or nephrolithiasis. monitor volumes, renal parameters, lytes, correct as needed fup with nephro recs s/p placement of permanent HD catheter R chest 11/07 s/p removal of temporary HD catheter by surgeon ECHO with pEF 55-60% rate control with BB, now added, HR stable on chronic a/c , was on hold for PEG, resume Eliquis swallow eval with aspiration risk diet texture as per ST recs with strict asp precautions and assistance with meals now NGT repeat BSSE 11/04 -> failed, recommended nonoral feeding started on NGT feeding strict aspiration precautions s/p PEG 11/08 asp precautions, GT site care, monitor tolerance of TF now pulled out GT , needs replacement failed swallow eval 11/14 need another G tube NPO, Eliquis dc for now PEG placement pending for today 11/16 AMS 10/[address] head negative, off sedatives ammonia WNL NGT inserted for meds as per nephro recs ( prior to G tube) NEED NEURO EVAL-per primary AMS improved to baseline psych follows HgA1c -6.1 hold oral anti-glycemic SSI prn sensitive initial AMS was most likely due to episode of hypoglycemia CT head NGT for acute ICP -done x 2 BP management with CCB BB and Hydralazine prn for BP spikes monitor HH with goal to keep Hgb above 7 stool OB anemia w/up noted , heme on board s/p 1 dose of Venofer on EPO hematuria resolved, Hgb at baseline GI prophayxlis supportive care WILL NEED TRILOGY VENT TO BE ARRANGED ON DISCHARGE ( pt needs BIPAP at HS and prn ) declined BiPAP prior for few nights, but was compliant prior , need reenforcement to use BiPAP at HS case management aware, work in progress case discussed and evaluated by supervising physician Leoncio Galan MD 11/17/19 1425: Subjective Allergies: Coded Allergies: PENICILLINS (Verified Allergy, Unknown, 10/25/19) tolerated Ceftriaxone Assessment/Plan Assessment/Plan Patient seen and examined with [employer] and I agree with the above assessment and plan. Reema Hanna NP Nov 17, 2019 10:36 Leoncio Galan MD Nov 17, 2019 14:25
[2019-11-17] MEDS ORDERED: Lidocaine 1% MPF 10mg/ml 5ml ONE (11:00)
--- NOTE | 2019-11-17 11:05 | Nephrology Progress Note ---
Assessment/Plan Problem List: (1) Renal failure (ARF), acute on chronic (2) Metabolic acidosis (3) Electrolyte imbalance Assessment: Hyponatremia and hyperkalemia (4) Anemia (5) CHF (congestive heart failure) Assessment 79-year-old male is admitted for hypoglycemia Patient has renal failure which appears to be acute on chronic Hyperkalemia Hyponatremia CHF, pleural effusion, pneumonia Anemia Metabolic acidosis Hypothyroidism Plan November 16: Labs reviewed. Serum creatinine is slightly higher. Will adjust blood pressure medication. We will consider dialysis if further worsening of renal parameters ensued. November 15: Lab reviewed. Serum creatinine creeping up. We will continue to monitor renal parameters. Further rise in serum creatinine will again require dialysis. November 14: Lab reviewed. Serum creatinine danial lethargic. Is a NG tube. Doubt stone pass speech therapy for oral intake. We will continue to monitor renal parameters. Review mind altering medication and adjust as possible. Continue per consultants. November 13: Labs reviewed. Serum creatinine is leveling off. No dialysis needed at this time. Patient has NG tube. Due for swallowing study. We will continue to monitor renal parameters. He may not need any further dialysis treatment as the acute renal failure appears to have been resolved. Will adjust blood pressure medication. Continue per orders. November 12: Lab works are reviewed. Renal parameters stable. Dialysis as needed. Medication list reviewed. November 11: Patient last dialyzed November 09. Patient pulled out the GT tube. Slight bleeding from the site observed. GI to reinsert. Zestril added for BP control. Next hemodialysis tomorrow. November 10: Patient was dialyzed yesterday. Labs reviewed. Stable from renal standpoint of view. November 09: Patient due for dialysis today due to incomplete dialysis yesterday as a result of catheter malfunction. The femoral catheter was already removed this morning. Labs reviewed. Continue current management. November 08: Dialysis attempted through the permacath which was put in yesterday by IR. Due to high catheter pressure , dialysis was held and PTAse administered. Dialysis will be tried again tomorrow. Will check labs tomorrow. November 07: Patient due for tunneled catheter insertion today. Will order dialysis tomorrow. Continue to monitor renal parameters. Labs and medications reviewed. November 06: Patient due for tunnel catheter insertion November 07. Serum creatinine is rising. Labs reviewed. Continue per consultants. November 05: Last dialysis November 03. Eliquis on hold. Due tunneled catheter insertion on November 07. Labs are reviewed. Continue current management. November 04: Dialyzed yesterday. Due for insertion of tunneled catheter today. May need to hold Eliquis and reschedule catheter insertion on Friday. Will monitor renal parameters in the meantime. November 03: Dialyzed this morning. Stable from renal standpoint of view. Due for insertion of tunneled catheter tomorrow. November 02: Dialyzed yesterday. Will DC IV fluid. Dialysis tomorrow. Potassium supplement given. Per orders. November 01: Patient currently being dialyzed. Tolerating well. Labs will be reviewed. Continue per consultants. October 31: Patient was dialyzed yesterday. Clinically doing better. We will continue to monitor renal parameters. Dialysis as needed. October 30: Serum creatinine rising. Patient due to have a temporary dialysis catheter and due for dialysis today. Will continue to follow-up renal parameters. Patient remains full code. October 29: Serum creatinine rising. Serum creatinine 4.5 today. Calculated creatinine clearance is 12. Kidney ultrasound ordered yesterday results were reviewed. Patient appears to have acute renal failure due to underlying sepsis and nephrotoxic medications. Patient requires dialysis treatment. Ordered to obtain consent from the responsible alliance party. Will communicate with PMD and or he is coverage. October 28: Serum creatinine higher to 4.2 today. Blood pressure appears more stable. In view of worsening renal failure, will order stat kidney ultrasound and urine studies. Continue to monitor renal parameters. Patient is full code. Worsening renal parameters may lead to hemodialysis treatment. October 27: Patient pulled out the Lyles catheter. Serum creatinine went up to 3.8. Blood pressure somewhat low. Heart rate in 50s. Will discontinue Coreg. We will continue to monitor renal parameters. October 26: Serum creatinine lower again today. Will abort the dialysis plan. Continue per consultants. Continue to monitor renal parameters. Medication list reviewed. October 25: Clinically improving. Serum creatinine lower. Urine output increased. No dialysis planned at this time. Continue per consultants. October 24: Patient's respiratory status somewhat improved. Serum creatinine down to 3.9. Urinary output somewhat increased. Will hold placement of dialysis catheter at this time. Blood pressure medication adjusted. Continue to monitor renal parameters. Per orders. October 23: Patient remains on BiPAP. More Kayexalate ordered. Will consider hemodialysis to correct fluid overload and hyperkalemia and acidosis. Will discuss with PMD. Meanwhile IV Synthroid started. Discussed with RN Timothy Patient already transfused 1 unit for severe anemia previously Will initiate Epogen 10,000 units subcutaneously 1 dose of IV iron Venofer 200 g IV Kayexalate for hyperkalemia as needed 2D echocardiogram ordered, ejection fraction is reported normal Kidney ultrasound ordered: Kidneys: Right kidney measures 9.1 cm in length. No hydronephrosis or stone. Left kidney not visualized due to patient's body habitus. Avoid nephrotoxic's Monitor renal parameters Will hold insulin and hypoglycemic agents until hypoglycemia is reasonably resolved Subjective ROS Limited/Unobtainable: No Constitutional: Reports: malaise, weakness Objective Objective Last 24 Hour Vital Signs Date Time Temp Pulse Resp B/P (MAP) Pulse Ox O2 Delivery O2 Flow Rate FiO2 11/17/19 09:00 Nasal Cannula 2.0 11/17/19 08:55 152/75 11/17/19 08:55 71 152/75 11/17/19 08:55 71 152/75 11/17/19 08:14 96 Nasal Cannula 2.0 28 11/17/19 08:00 97.3 71 19 152/75 (100) 95 11/17/19 04:00 98.0 74 20 139/52 (81) 96 11/17/19 00:00 98.7 65 18 142/63 (89) 96 11/16/19 21:00 146/59 11/16/19 21:00 70 146/59 11/16/19 20:13 Nasal Cannula 2.0 11/16/19 20:00 98.5 70 17 146/59 (88) 96 11/16/19 19:00 98 Nasal Cannula 2.0 28 11/16/19 16:00 96.7 65 20 128/61 (83) 99 11/16/19 12:00 96.8 63 19 123/50 (74) 99 Intake and Output 11/16/19 11/17/19 19:00 07:00 Output Total 350 ml 500 ml Balance -350 ml -500 ml Output Urine Total 350 ml 500 ml # Voids 1 # Bowel Movements 1 Laboratory Tests 11/17/19 04:49: White Blood Count 5.9, Red Blood Count 2.72L, Hemoglobin 8.0L, Hematocrit 27.3L , Mean Corpuscular Volume 101H, Mean Corpuscular Hemoglobin 29.4, Mean Corpuscular Hemoglobin Concent 29.2L, Red Cell Distribution Width 15.7H, Platelet Count 258, Mean Platelet Volume 7.2, Neutrophils (%) (Auto) 76.9H, Lymphocytes (%) (Auto) 16.1L, Monocytes (%) (Auto) 4.8, Eosinophils (%) (Auto) 1.2, Basophils (%) (Auto) 0.9, Sodium Level 141, Potassium Level 4.8, Chloride Level 102, Carbon Dioxide Level 34H, Anion Gap 6, Blood Urea Nitrogen 87H, Creatinine 3.4H, Estimat Glomerular Filtration Rate 17.5, Glucose Level 126H, Calcium Level 9.5, Phosphorus Level 4.8, Magnesium Level 3.0H, Total Bilirubin 0.4, Aspartate Amino Transf (AST/SGOT) 18, Alanine Aminotransferase (ALT/SGPT) 10L, Alkaline Phosphatase 109, Total Protein 5.7L, Albumin 2.3L, Globulin 3.4, Albumin/Globulin Ratio 0.7L Height (Feet): 5 Height (Inches): 5.00 Weight (Pounds): 193 General Appearance: no apparent distress, lethargic Cardiovascular: normal rate Respiratory/Chest: decreased breath sounds Abdomen: distended Objective No change Naveed Vanegas MD Nov 17, 2019 11:05
--- NOTE | 2019-11-17 11:13 | Anethesia Preoperative Eval ---
Anesthesia Pre-op PMH/ROS General Date of Evaluation: Nov 17, 2019 Time of Evaluation: 10:55 Anesthesiologist: broderick ASA Score: ASA 4 Mallampati Score Class I : Soft palate, uvula, fauces, pillars visible Class II: Soft palate, uvula, fauces visible Class III: Soft palate, base of uvula visible Class IV: Only hard plate visible Mallampati Classification: Class II Surgeon: mariano Diagnosis: dysphagia Surgical Procedure: egd/peg Anesthesia History: none Family History: no anesthesia problems Allergies: Coded Allergies: PENICILLINS (Verified Allergy, Unknown, 10/25/19) tolerated Ceftriaxone Medications: see eMAR Patient NPO?: Yes Past Medical History Cardiovascular: Reports: other - av block typr 1 Gastrointestinal/Genitourinary: Reports: GERD, ESRD, other Neurologic/Psychiatric: Reports: depression/anxiety Endocrine: Reports: DM Hematology/Immune: Reports: anemia Musculoskeletal/Integumentary: Reports: other Anesthesia Pre-op Phys. Exam Physician Exam Last Vital Signs Date Time Temp Pulse Resp B/P (MAP) Pulse Ox O2 Delivery O2 Flow Rate FiO2 11/17/19 09:00 Nasal Cannula 2.0 11/17/19 08:55 152/75 11/17/19 08:55 71 11/17/19 08:14 96 28 11/17/19 08:00 97.3 19 Constitutional: NAD Neurologic: CN 2-12 intact Cardiovascular: RRR Respiratory: CTA Gastrointestinal: S/NT/ND, other - ngt in place Airway Exam Mallampati Score: Class II MO: limited Neck: short TMD: 2fb ROM: limited Teeth: missing Anesthesia Pre-op A/P Labs Hematology Test 11/17/19 04:49 White Blood Count 5.9 K/UL (4.8-10.8) Red Blood Count 2.72 M/UL (4.70-6.10) L Hemoglobin 8.0 G/DL (14.2-18.0) L Hematocrit 27.3 % (42.0-52.0) L Mean Corpuscular Volume 101 FL (80-99) H Mean Corpuscular Hemoglobin 29.4 PG (27.0-31.0) Mean Corpuscular Hemoglobin Concent 29.2 G/DL (32.0-36.0) L Red Cell Distribution Width 15.7 % (11.6-14.8) H Platelet Count 258 K/UL (150-450) Mean Platelet Volume 7.2 FL (6.5-10.1) Neutrophils (%) (Auto) 76.9 % (45.0-75.0) H Lymphocytes (%) (Auto) 16.1 % (20.0-45.0) L Monocytes (%) (Auto) 4.8 % (1.0-10.0) Eosinophils (%) (Auto) 1.2 % (0.0-3.0) Basophils (%) (Auto) 0.9 % (0.0-2.0) Chemistry Test 11/17/19 04:49 Sodium Level 141 MMOL/L (136-145) Potassium Level 4.8 MMOL/L (3.5-5.1) Chloride Level 102 MMOL/L (98-107) Carbon Dioxide Level 34 MMOL/L (21-32) H Anion Gap 6 mmol/L (5-15) Blood Urea Nitrogen 87 mg/dL (7-18) H Creatinine 3.4 MG/DL (0.55-1.30) H Estimat Glomerular Filtration Rate 17.5 mL/min (>60) Glucose Level 126 MG/DL (74-106) H Calcium Level 9.5 MG/DL (8.5-10.1) Phosphorus Level 4.8 MG/DL (2.5-4.9) Magnesium Level 3.0 MG/DL (1.8-2.4) H Total Bilirubin 0.4 MG/DL (0.2-1.0) Aspartate Amino Transf (AST/SGOT) 18 U/L (15-37) Alanine Aminotransferase (ALT/SGPT) 10 U/L (12-78) L Alkaline Phosphatase 109 U/L (46-116) Total Protein 5.7 G/DL (6.4-8.2) L Albumin 2.3 G/DL (3.4-5.0) L Globulin 3.4 g/dL Albumin/Globulin Ratio 0.7 (1.0-2.7) L Risk Assessment & Plan Assessment: asa4 Plan: mac Status Change Before Surgery: No Pre-Antibiotics Drug: clindmycin 600mg Given Within 1 Hr of Incision: Mana Roldan MD Nov 17, 2019 11:13
--- NOTE | 2019-11-17 11:14 | Endoscopy Procedure Note ---
Endoscopy Procedure Note General Indication for Procedure: dysphagia Procedures Performed: EGD, PEG Operative Findings/Diagnosis: same Specimen: none Pt Tolerated Procedure Well: Yes Estimated Blood Loss: none Anesthesia Anesthesiologist: jean tiwari Anesthesia: MAC Inserted Devices Implant(s) used?: No GI Core Measures 50 yrs or older w/o bx or poly: Not Applicable 10yrs. F/U recommended: Not Applicable Lawrence Humphreys MD Nov 17, 2019 11:14
[2019-11-17] MEDS ORDERED: NS 500ML IVPB ONE (11:45)
[2019-11-17] MEDS ORDERED: Atropine Inj 1mg/10ml Syr IV PRN (12:45)
[2019-11-17] MEDS ORDERED: fentaNYL 100 mcg/2 mL IV PRN (12:45)
[2019-11-17] MEDS ORDERED: Midazolam 2mg/2ml Inj IVP PRN (12:45)
[2019-11-17] MEDS ORDERED: DiphenhydrAMINE 50mg/ml Inj IVP PRN (12:45)
--- NOTE | 2019-11-17 12:52 | Surgery Progress Note ---
Surgery Progress Note Subjective Procedure Performed removal Right femoral temporary hemodialysis catheter Additional Comments no acute event labs reviewed no n/v/f/c Objective Last 24 Hour Vital Signs Date Time Temp Pulse Resp B/P (MAP) Pulse Ox O2 Delivery O2 Flow Rate FiO2 11/17/19 12:25 52 24 104/43 100 Simple Mask 6 11/17/19 12:20 53 22 106/38 100 Simple Mask 6 11/17/19 12:14 97.2 54 18 103/74 100 Simple Mask 6 11/17/19 09:00 Nasal Cannula 2.0 11/17/19 08:55 152/75 11/17/19 08:55 71 152/75 11/17/19 08:55 71 152/75 11/17/19 08:14 96 Nasal Cannula 2.0 28 11/17/19 08:00 97.3 71 19 152/75 (100) 95 11/17/19 04:00 98.0 74 20 139/52 (81) 96 11/17/19 00:00 98.7 65 18 142/63 (89) 96 11/16/19 21:00 146/59 11/16/19 21:00 70 146/59 11/16/19 20:13 Nasal Cannula 2.0 11/16/19 20:00 98.5 70 17 146/59 (88) 96 11/16/19 19:00 98 Nasal Cannula 2.0 28 11/16/19 16:00 96.7 65 20 128/61 (83) 99 I&O Intake and Output 11/16/19 11/17/19 19:00 07:00 Output Total 350 ml 500 ml Balance -350 ml -500 ml Output Urine Total 350 ml 500 ml # Voids 1 # Bowel Movements 1 Dressing: other Wound: other Cardiovascular: RSR Respiratory: decreased breath sounds Abdomen: soft, non-tender, present bowel sounds Extremities: no tenderness, no cyanosis Laboratory Tests Test 11/17/19 04:49 White Blood Count 5.9 K/UL (4.8-10.8) Red Blood Count 2.72 M/UL (4.70-6.10) L Hemoglobin 8.0 G/DL (14.2-18.0) L Hematocrit 27.3 % (42.0-52.0) L Mean Corpuscular Volume 101 FL (80-99) H Mean Corpuscular Hemoglobin 29.4 PG (27.0-31.0) Mean Corpuscular Hemoglobin Concent 29.2 G/DL (32.0-36.0) L Red Cell Distribution Width 15.7 % (11.6-14.8) H Platelet Count 258 K/UL (150-450) Mean Platelet Volume 7.2 FL (6.5-10.1) Neutrophils (%) (Auto) 76.9 % (45.0-75.0) H Lymphocytes (%) (Auto) 16.1 % (20.0-45.0) L Monocytes (%) (Auto) 4.8 % (1.0-10.0) Eosinophils (%) (Auto) 1.2 % (0.0-3.0) Basophils (%) (Auto) 0.9 % (0.0-2.0) Sodium Level 141 MMOL/L (136-145) Potassium Level 4.8 MMOL/L (3.5-5.1) Chloride Level 102 MMOL/L (98-107) Carbon Dioxide Level 34 MMOL/L (21-32) H Anion Gap 6 mmol/L (5-15) Blood Urea Nitrogen 87 mg/dL (7-18) H Creatinine 3.4 MG/DL (0.55-1.30) H Estimat Glomerular Filtration Rate 17.5 mL/min (>60) Glucose Level 126 MG/DL (74-106) H Calcium Level 9.5 MG/DL (8.5-10.1) Phosphorus Level 4.8 MG/DL (2.5-4.9) Magnesium Level 3.0 MG/DL (1.8-2.4) H Total Bilirubin 0.4 MG/DL (0.2-1.0) Aspartate Amino Transf (AST/SGOT) 18 U/L (15-37) Alanine Aminotransferase (ALT/SGPT) 10 U/L (12-78) L Alkaline Phosphatase 109 U/L (46-116) Total Protein 5.7 G/DL (6.4-8.2) L Albumin 2.3 G/DL (3.4-5.0) L Globulin 3.4 g/dL Albumin/Globulin Ratio 0.7 (1.0-2.7) L Plan Problems: (1) Hypercarbia (2) Pleural effusion (3) Chronic renal failure (4) Anemia (5) CHF (congestive heart failure) (6) Bacteremia (7) Cellulitis Assessment & Plan: improving no active bleeding eric ley will monitor (8) Hypoglycemia (9) Hyponatremia (10) ATN (acute tubular necrosis) (11) Metabolic acidosis Assessment & Plan: DYSPHAGIA RISK FACTORS INCLUDE: RESPIRATORY WELL MULTIPLE MEDICAL COMPLICATIONS, SHORTNESS OF BREATH, WORK OF BREATHING, DECREASED MENTATION, HX OF SUBOPTIMAL P.O. INTAKE, LETHARGY (DIFFICULTY SUSTAINING WAKEFULNESS) , CLINICAL HISTORY: AMS CURRENT CXR: Indication: Shortness of breath Technique: One view of the chest Comparison: 10/31/2019 Findings: Interim placement of nasogastric tube, tip projected at the level of the gastric body. This was also demonstrated on 11/01/2019 abdominal radiograph. Bilateral hazy opacity appears similar to or perhaps slightly increased from the prior study. Generalized mild interstitial prominence persists. 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 TRIALS OF ICE CHIPS, ONE AT A TIME. LINGUAL SIZE PRESENTS ENLARGED. PATIENT PERSISTENTLY MOUTH BREATHING. WHEN PRESENTED WITH ONE ICE CHIP HE MANIPULATED IT, ALLOWED IT TO MELT ON HIS TONGUE AND AFTER A MODERATE DELAY, HE SWALLOWED. RR CHANGES FROM 18 BREATHS PER MINUTE TO 25 BREATHS PER MINUTE ALONG WITH WORK OF BREATHING. WHEN ASKED TO SAY "AH" POST SWALLOW, PATIENTS VOCAL QUALITY WAS WET/GURGLY. HYOLARYNGEAL EXCURSION PRESENTED MODERATELY DECREASED. PATIENT ESSENTIALLY NON/VERBAL THIS AFTERNOON. HIGH ASPIRATION RISK. HIS RISK FOR CONSISTENT/STABLE/SUFFICIENT P.O. INTAKE TO SUPPORT NUTRITION/HYDRATION NEEDS. RECOMMENDATIONS: 1. CONTINUE NON/ORAL FEEDING MANAGEMENT PRIMARY SOURCE OF NUTRITION/ HYDRATION/MEDICATION 2. NPO STATUS 3. RE/ORDER SWALLOW EVALUATION IF/WHEN PATIENTS MEDICAL STATUS STABILIZES. DAILY ESTIMATED NEEDS: Needs based on Critical care, wound 71kg abw 22-28 kcals/kg [id number] total kcals 1.25-2 g protein/kg 88-154 g total protein 25-30 mL/kg 9868-7363 total fluid mLs NUTRITION DIAGNOSIS: 1) Swallowing difficulty r/t respiratory status as evidenced by pt is vent dep via trach, GT dep. 2) Increased kcal/prot needs R/T wound healing as evidenced by pt admitted w/ multiple wounds including full thickness x3, refer to wound care eval for full report. CURRENT TF:NPO ENTERAL NUTRITION RECOMMENDATIONS: Glucerna 1.2 @60ml/hr x24 hrs + Prosource 1pkt QD to provide 1440ml, 1728 kcal, 86g +11g pro, 1159ml free H2o - As medically appropriate, initiate Glucerna 1.2 @ 30ml/hr x 6hrs - Advance 10ml q 4-6 hrs as tolerated to goal rate - Add Prosource 1pkt daily to better meet protein needs - HOB over 30 degrees/ water flush 120ml q 4hrs PARENTERAL NUTRITION RECOMMENDATIONS TPN Comment: Rec TPN to meet est needs with anticipated prolonged NPO status ADDITIONAL RECOMMENDATIONS: 1) Calibrated bedscale wt 2) Rec adding D5 IVF while pt is NPO to prevent hypoglycemia 3) Monitor lytes w/ TF, replete as needed 4) Wound healing: Vit C 250mg BID + SILVESTRE BID w/ TF orders 5) Monitor need for NISS w/ TF: h/o DM 6) Consider TPN w/ anticipated prolonged NPO status Hardware: Nasogastric tube terminates in the region of the stomach. Distal portion of a central venous catheter terminates in the junction of the SVC and right atrium. Abdomen: Nonspecific partially visualized bowel gas pattern. No free air. Bones: Normal. Soft tissues: Normal. Visualized chest: Hazy and interstitial opacities and right greater than left lungs. Atherosclerotic calcifications of the aorta. Borderline size of the cardiac silhouette. IMPRESSION: Nasogastric tube terminates in the region of the stomach. (12) Pneumonia (13) Cellulitis of foot Assessment & Plan: Pt presented on admission with Bilat TMA. Pressure injuries both heels. Stable dry necrosis note to Plantar /lateral L TMA. L Heel is boggy with non- Blanchable erythema. . R Heel Boggy with Non-Blanchable erythema.Haemosiderin with Xerosis skin noted to R and L lower ext. Darker skin tone without erythema , induration or fluctuance Medial L Malleolus. Darker skin tone without erythema or induration noted to sacrum. Tx.Plan: Apply Moisture Barrier Paste to Sacrum. Cover with Optifoam drsg.Change every 3 days and prn. Apply Betadine to eschar plantar/lateral L TMA . Cover with Optifoam drsg. Change every 3 days and prn. Apply Cavilon Skin Barrier to both heels and Malleoli. Cover each site with Optifoam drsg. Change every 7days and prn. Reposition at least every 2hours or as tolerated. Off load heels with pillow.Hx prior amputation prior MRI and plain films reviewed wounds stable and local care being provided no abscess noted cont with dressings elevate heels with pillow turn q2h off load pressure air mattress will follow with recs thank you (14) Osteomyelitis (15) History of hypertension (16) Renal failure (ARF), acute on chronic Assessment & Plan: HD line removed 11/09 (17) Acute encephalopathy (18) Diabetes mellitus (19) Hypertension (20) Cholelithiasis Assessment & Plan: US reviewed exam benign asymptomatic cholelithiasis alk phos mild elevated lfts improved trend labs no acute surgical intervention planned Liver: Liver measures 14.8 cm. No intrahepatic bile duct dilation. Gallbladder: Small stone in the gallbladder. No significant gallbladder wall thickening or pericholecystic fluid. Negative sonographic Bianchi's sign. Common bile duct: Normal common bile duct measuring 4.5 mm. No stones. No dilation. Pancreas: Pancreas is not visualized due to overlying bowel gas. Kidneys: Right kidney measures 9.1 cm in length. No hydronephrosis or stone. Left kidney not visualized due to patient's body habitus. Spleen: Spleen measures 9.4 cm. No focal lesion. Aorta: Visualized portions of the aorta are grossly unremarkable. The mid and distal portions are obscured by bowel gas. Inferior vena cava: Unremarkable. Free fluid: No ascites. Tubes, lines and devices: Lyles catheter in a decompressed bladder. IMPRESSION: Small stone in the gallbladder. No significant gallbladder wall thickening or pericholecystic fluid. Negative sonographic Bianchi's sign. Mariusz Diehl Nov 17, 2019 12:52
--- NOTE | 2019-11-17 13:00 | Procedure Note ---
DATE OF PROCEDURE: 11/17/2019 SURGEON: Lawrence Humphreys MD. PROCEDURE: Upper endoscopy with PEG placement. ANESTHESIA: Per Dr. Cloud. INSTRUMENT: Olympus adult flexible upper endoscope. INDICATIONS FOR PROCEDURE: Dysphagia. REASON FOR PROCEDURE: The procedure, risks, benefits, and possible consequences, including hemorrhage, aspiration, perforation and infection, and alternative treatments, were explained to the patient/legal guardian by Dr. Lawrence Humphreys and the patient/legal guardian understood and accepted these risks. DESCRIPTION OF PROCEDURE: After informed consent was obtained and the patient was adequately sedated, the Olympus upper endoscope was advanced from the mouth into the second portion of the duodenum and retroflexion was performed in the stomach. Then, under endoscopic guidance, under sterile condition, a 20-Turkish pull type of G-tube was successfully placed in the epigastric area. The distance from the tip of the tube to skin was about 2.5 to 3 cm in size. The patient tolerated the procedure very well without any complication. SUMMARY OF FINDINGS: Status post successful PEG placement. RECOMMENDATIONS: 1. Abdominal binder. 2. Elevated the head of bed at all times. 3. G-tube flush. 4. G-tube care. 5. Start tube feeding later today. Lawrence Humphreys M.D. DR: Dalton JOB#: [id number] CC:
--- NOTE | 2019-11-17 13:14 | Immediate Post-Op Evaluation ---
Immediate Post-Op Evalulation Immediate Post-Op Evalulation Procedure: egd/peg Date of Evaluation: Nov 17, 2019 Time of Evaluation: 12:26 IV Fluids: 300ml 0.9ns Blood Products: none Estimated Blood Loss: negligible Blood Pressure Systolic: 106 Blood Pressure Diastolic: 38 Pulse Rate: 54 Respiratory Rate: 18 O2 Sat by Pulse Oximetry: 100 Temperature (Fahrenheit): 97.2 Pain Score (1-10): 0 Nausea: No Vomiting: No Complications none Patient Status: awake, reacts, patent Hydration Status: adequate Drug: clindamycin 600mg Given Within 1 Hr of Incision: Yes Mana Forte MD Nov 17, 2019 13:14
--- NOTE | 2019-11-17 13:15 | 48 Hour Post Anesthesia Eval ---
Post Anesthesia Evaluation Procedure: egd/peg Date of Evaluation: Nov 17, 2019 Time of Evaluation: 12:28 Blood Pressure Systolic: 104 0: 43 Pulse Rate: 52 Respiratory Rate: 18 Temperature (Fahrenheit): 97.2 O2 Sat by Pulse Oximetry: 100 Airway: patent Nausea: No Vomiting: No Pain Intensity: 0 Hydration Status: adequate Cardiopulmonary Status: stable Mental Status/LOC: patient returned to baseline Post-Anesthesia Complications: none Follow-up care needed: N/A Mana Forte MD Nov 17, 2019 13:15
--- NOTE | 2019-11-17 13:52 | Infectious Diseases Prog Note ---
Assessment/Plan 79yo M from SN[facility] who p/w hypoglycemia and resp failure: Acute hypoxic respiratory failure, on BiPAP > 2L NC> RA > 2L NC Rapid COVID neg x2 (10/21, 10/24) Pneumonia on CXR, sp rx Volume overload 10/30 CXR: Slightly improved 10/25 CXR: Bilateral alveolar densities are unchanged 10/24 Sp cx normal resp demario (prelim) 10/23 CXR: 1. Small layering right pleural effusion, not significantly changed. The previously noted small left pleural effusion is not as evident.Prominent lung markings and haziness, right greater left, which may be related to pulmonary vascular congestion versus pneumonitis. This is not significantly changed.. Subsegmental atelectasis versus infiltrate in the medial left lung base, also not significantly changed. 10/21 CXR: 1. Small bilateral pleural effusions. Bibasilar atelectasis versus pneumonia. 2. Prominent lung markings and hazy opacities in right greater than left lungs may represent artifact versus pulmonary vasculature congestion and edema versus infectious/inflammatory process. 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 Afebrile No leukocytosis Anemia to 6.8, improved UA neg, UCx neg 10/21 BCx Neg ALEXIS on CKD, worsening --> now on HD HBsAg neg Plan: Cont to monitor off abx 11/07 Clindamycin x1 for catheter placement 10/31 SP CTX #7 10/26 SP vancomycin IV #5 Trend resp status Monitor CBC, CMP recommend ENT eval as outpt PEG care aspiration precautions Thank you for this consult. [facility] will continue to follow. Subjective Allergies: Coded Allergies: PENICILLINS (Verified Allergy, Unknown, 10/25/19) tolerated Ceftriaxone afebrile at 2l NC sp PEG placement today Objective Last 24 Hour Vital Signs Date Time Temp Pulse Resp B/P (MAP) Pulse Ox O2 Delivery O2 Flow Rate FiO2 11/17/19 13:25 97.8 53 18 114/48 (70) 98 11/17/19 13:15 52 18 100 11/17/19 13:14 54 18 100 11/17/19 13:10 97.7 53 17 107/39 (61) 100 8/26/20 12:54 97.2 53 23 106/48 100 Nasal Cannula 3 11/17/19 12:40 52 22 105/44 100 Nasal Cannula 3 11/17/19 12:30 54 22 108/43 100 Simple Mask 6 11/17/19 12:25 52 24 104/43 100 Simple Mask 6 11/17/19 12:20 53 22 106/38 100 Simple Mask 6 11/17/19 12:14 97.2 54 18 103/74 100 Simple Mask 6 11/17/19 09:00 Nasal Cannula 2.0 11/17/19 08:55 152/75 11/17/19 08:55 71 152/75 11/17/19 08:55 71 152/75 11/17/19 08:14 96 Nasal Cannula 2.0 28 11/17/19 08:00 97.3 71 19 152/75 (100) 95 11/17/19 04:00 98.0 74 20 139/52 (81) 96 11/17/19 00:00 98.7 65 18 142/63 (89) 96 11/16/19 21:00 146/59 11/16/19 21:00 70 146/59 11/16/19 20:13 Nasal Cannula 2.0 11/16/19 20:00 98.5 70 17 146/59 (88) 96 11/16/19 19:00 98 Nasal Cannula 2.0 28 11/16/19 16:00 96.7 65 20 128/61 (83) 99 Height (Feet): 5 Height (Inches): 5.00 Weight (Pounds): 193 Gen NAD Pulm: BL chest rise Abd: soft, NTND; abd binder in place Ext: No c/c/e, 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 Laboratory Tests Test 11/17/19 04:49 White Blood Count 5.9 K/UL (4.8-10.8) Red Blood Count 2.72 M/UL (4.70-6.10) L Hemoglobin 8.0 G/DL (14.2-18.0) L Hematocrit 27.3 % (42.0-52.0) L Mean Corpuscular Volume 101 FL (80-99) H Mean Corpuscular Hemoglobin 29.4 PG (27.0-31.0) Mean Corpuscular Hemoglobin Concent 29.2 G/DL (32.0-36.0) L Red Cell Distribution Width 15.7 % (11.6-14.8) H Platelet Count 258 K/UL (150-450) Mean Platelet Volume 7.2 FL (6.5-10.1) Neutrophils (%) (Auto) 76.9 % (45.0-75.0) H Lymphocytes (%) (Auto) 16.1 % (20.0-45.0) L Monocytes (%) (Auto) 4.8 % (1.0-10.0) Eosinophils (%) (Auto) 1.2 % (0.0-3.0) Basophils (%) (Auto) 0.9 % (0.0-2.0) Sodium Level 141 MMOL/L (136-145) Potassium Level 4.8 MMOL/L (3.5-5.1) Chloride Level 102 MMOL/L (98-107) Carbon Dioxide Level 34 MMOL/L (21-32) H Anion Gap 6 mmol/L (5-15) Blood Urea Nitrogen 87 mg/dL (7-18) H Creatinine 3.4 MG/DL (0.55-1.30) H Estimat Glomerular Filtration Rate 17.5 mL/min (>60) Glucose Level 126 MG/DL (74-106) H Calcium Level 9.5 MG/DL (8.5-10.1) Phosphorus Level 4.8 MG/DL (2.5-4.9) Magnesium Level 3.0 MG/DL (1.8-2.4) H Total Bilirubin 0.4 MG/DL (0.2-1.0) Aspartate Amino Transf (AST/SGOT) 18 U/L (15-37) Alanine Aminotransferase (ALT/SGPT) 10 U/L (12-78) L Alkaline Phosphatase 109 U/L (46-116) Total Protein 5.7 G/DL (6.4-8.2) L Albumin 2.3 G/DL (3.4-5.0) L Globulin 3.4 g/dL Albumin/Globulin Ratio 0.7 (1.0-2.7) L Current Medications Medications (Trade) Dose Ordered Sig/Cammy Route PRN Reason Start Time Stop Time Status Last Admin Dose Admin Acetaminophen (Tylenol) 650 mg Q6H PRN NG Pain 3-5 11/14/19 12:00 12/02/19 00:00 11/17/19 01:58 Amlodipine Besylate (Norvasc) 10 mg DAILY NG 11/15/19 09:00 11/25/19 08:59 11/17/19 08:55 Atorvastatin Calcium (Lipitor) 10 mg BEDTIME NG 11/14/19 21:00 01/21/20 20:59 11/16/19 21:00 Chlorhexidine Gluconate (Yi-Hex 2%) 1 applic DAILY@2000 TOPIC 11/14/19 20:00 01/31/20 19:59 11/16/19 21:00 Clonidine HCl (Catapres TTS-1) 1 patch QWEEK TDERMAL 11/19/19 19:00 02/10/20 18:59 Dextrose (Dextrose 50%) 25 ml Q30M PRN IV Hypoglycemia 11/14/19 10:45 01/20/20 21:44 Dextrose (Dextrose 50%) 50 ml Q30M PRN IV Hypoglycemia 11/14/19 10:45 01/20/20 21:44 Docusate Sodium (Colace) 100 mg THREE TIMES A DAY NG 11/14/19 13:00 12/02/19 17:59 11/17/19 13:38 Epoetin William (Epoetin William(ESRD on dialysis)) 10,000 unit SUBQ 11/15/19 21:00 02/01/20 20:59 11/15/19 20:22 Haloperidol (Haldol) 5 mg Q12H PRN NG Agitation 11/14/19 12:00 12/26/19 00:00 Haloperidol Lactate (Haldol) 5 mg Q6H PRN IM Agitation 11/14/19 12:00 12/10/19 00:00 11/14/19 20:54 Hydralazine HCl (Apresoline) 25 mg Q8HR NG 11/17/19 14:00 02/15/20 13:59 Insulin Aspart (NovoLOG) Q6HR SUBQ 11/14/19 12:00 01/31/20 06:29 11/16/19 18:04 Lactulose (Cephulac) 10 gm BID NG 11/14/19 18:00 12/01/19 08:59 11/17/19 08:54 Lansoprazole (Prevacid) 30 mg DAILY NG 11/15/19 09:00 12/11/19 08:59 11/17/19 08:54 Levothyroxine Sodium (Synthroid) 75 mcg DAILY@0630 NG 11/15/19 06:30 12/04/19 06:29 11/15/19 05:48 Lisinopril (PriniviL) 20 mg Q12HR NG 11/15/19 21:00 12/13/19 20:59 11/17/19 08:55 Metoprolol Tartrate (Lopressor) 50 mg Q12HR NG 11/15/19 09:00 02/13/20 08:59 11/17/19 08:55 Polyethylene Glycol (Miralax) 17 gm BEDTIME NG 11/14/19 21:00 12/01/19 20:59 11/16/19 21:00 Sennosides (Senokot) 8.6 mg HSPRN PRN NG Constipation 11/14/19 12:00 12/14/19 11:59 Trinity Pan M.D. Nov 17, 2019 13:52
[2019-11-17] MEDS: HydrALAZINE 50mg tab NG SCH ×2 (14:31→21:10)
[2019-11-17] MEDS: Dyna-Hex 2% Top Sol 2oz TOPIC SCH (20:41)
[2019-11-17] MEDS: Miralax 17gm pkt NG SCH ×2 (20:42→20:51)
[2019-11-17] MEDS: Epoetin Alfa-EPBX(ESRD on dialysis)10,000 unit/ml vial SUBQ SCH (20:45)
--- NOTE | 2019-11-17 23:00 | General Progress Note ---
Assessment/Plan Status: unchanged Status Narrative Patient underwent EEG yesterday and is she cannot undergo MRI CT scan of the brain was ordered by the neurologist patient did not have any seizure medication behavior today is more psychotic and neurological emergencies during intensity have been treated at this afternoon showed Given during last visit we reviewed the results of the CT scan. Patient management of seizure AYUSH CHANG MD Subjective Constitutional: Reports: weakness HEENT: Reports: no symptoms Cardiovascular: Reports: irregular heart rate Respiratory: Reports: no symptoms Gastrointestinal/Abdominal: Reports: poor appetite Genitourinary: Reports: no symptoms Neurologic/Psychiatric: Reports: depressed, weakness Endocrine: Reports: no symptoms Allergies: Coded Allergies: PENICILLINS (Verified Allergy, Unknown, 10/25/19) tolerated Ceftriaxone Objective Last 24 Hour Vital Signs Date Time Temp Pulse Resp B/P (MAP) Pulse Ox O2 Delivery O2 Flow Rate FiO2 11/17/19 21:10 126/66 11/17/19 21:00 Nasal Cannula 2.0 11/17/19 20:42 126/66 11/17/19 20:41 82 126/66 11/17/19 20:00 97.7 64 20 126/66 (86) 99 11/17/19 19:41 97 Nasal Cannula 2.0 28 11/17/19 16:00 97.2 59 19 103/60 (74) 100 11/17/19 14:31 120/55 11/17/19 13:55 97.2 56 17 114/56 (75) 99 11/17/19 13:40 97.0 51 17 110/50 (70) 98 11/17/19 13:25 97.8 53 18 114/48 (70) 98 11/17/19 13:15 52 18 100 11/17/19 13:14 54 18 100 11/17/19 13:10 97.7 53 17 107/39 (61) 100 11/17/19 12:54 97.2 53 23 106/48 100 Nasal Cannula 3 11/17/19 12:40 52 22 105/44 100 Nasal Cannula 3 11/17/19 12:30 54 22 108/43 100 Simple Mask 6 11/17/19 12:25 52 24 104/43 100 Simple Mask 6 11/17/19 12:20 53 22 106/38 100 Simple Mask 6 11/17/19 12:14 97.2 54 18 103/74 100 Simple Mask 6 11/17/19 09:00 Nasal Cannula 2.0 11/17/19 08:55 152/75 11/17/19 08:55 71 152/75 11/17/19 08:55 71 152/75 11/17/19 08:14 96 Nasal Cannula 2.0 28 11/17/19 08:00 97.3 71 19 152/75 (100) 95 11/17/19 04:00 98.0 74 20 139/52 (81) 96 11/17/19 00:00 98.7 65 18 142/63 (89) 96 Intake and Output 11/16/19 11/17/19 19:00 07:00 Output Total 350 ml 500 ml Balance -350 ml -500 ml Output Urine Total 350 ml 500 ml # Voids 1 # Bowel Movements 1 Laboratory Tests 11/17/19 04:49: White Blood Count 5.9, Red Blood Count 2.72L, Hemoglobin 8.0L, Hematocrit 27.3L , Mean Corpuscular Volume 101H, Mean Corpuscular Hemoglobin 29.4, Mean Corpuscular Hemoglobin Concent 29.2L, Red Cell Distribution Width 15.7H, Platelet Count 258, Mean Platelet Volume 7.2, Neutrophils (%) (Auto) 76.9H, Lymphocytes (%) (Auto) 16.1L, Monocytes (%) (Auto) 4.8, Eosinophils (%) (Auto) 1.2, Basophils (%) (Auto) 0.9, Sodium Level 141, Potassium Level 4.8, Chloride Level 102, Carbon Dioxide Level 34H, Anion Gap 6, Blood Urea Nitrogen 87H, Creatinine 3.4H, Estimat Glomerular Filtration Rate 17.5, Glucose Level 126H, Calcium Level 9.5, Phosphorus Level 4.8, Magnesium Level 3.0H, Total Bilirubin 0.4, Aspartate Amino Transf (AST/SGOT) 18, Alanine Aminotransferase (ALT/SGPT) 10L, Alkaline Phosphatase 109, Total Protein 5.7L, Albumin 2.3L, Globulin 3.4, Albumin/Globulin Ratio 0.7L Height (Feet): 5 Height (Inches): 5.00 Weight (Pounds): 193 General Appearance: alert, lethargic EENT: normal ENT inspection Neck: non-tender, supple Cardiovascular: regular rhythm, no JVD, tachycardia Respiratory/Chest: lungs clear Abdomen: normal bowel sounds, non tender, soft, no mass Extremities: non-tender Neurologic: abnormal gait, aphasia, depressed affect Ayush Chang MD Nov 17, 2019 23:00
--- NOTE | 2019-11-17 23:34 | Psych Consult Progress Note ---
Psychiatry Progress Note Psychiatry Progress Note Subjective the pts mental condition is unchanged confused dec agitations disoriented the pt is weak Medications Current Medications Medications (Trade) Dose Ordered Sig/Cammy Route PRN Reason Start Time Stop Time Status Last Admin Dose Admin Acetaminophen (Tylenol) 650 mg Q6H PRN NG Pain 3-5 11/14/19 12:00 12/02/19 00:00 11/17/19 01:58 Amlodipine Besylate (Norvasc) 10 mg DAILY NG 11/15/19 09:00 11/25/19 08:59 11/17/19 08:55 Atorvastatin Calcium (Lipitor) 10 mg BEDTIME NG 11/14/19 21:00 01/21/20 20:59 11/17/19 20:42 Chlorhexidine Gluconate (Yi-Hex 2%) 1 applic DAILY@1999 TOPIC 11/14/19 20:00 01/31/20 19:59 11/17/19 20:41 Clonidine HCl (Catapres TTS-1) 1 patch QWEEK TDERMAL 11/19/19 19:00 02/10/20 18:59 Dextrose (Dextrose 50%) 25 ml Q30M PRN IV Hypoglycemia 11/14/19 10:45 01/20/20 21:44 Dextrose (Dextrose 50%) 50 ml Q30M PRN IV Hypoglycemia 11/14/19 10:45 01/20/20 21:44 Docusate Sodium (Colace) 100 mg THREE TIMES A DAY NG 11/14/19 13:00 12/02/19 17:59 11/17/19 17:31 Epoetin William (Epoetin William(ESRD on dialysis)) 10,000 unit -FRI SUBQ 11/15/19 21:00 02/01/20 20:59 11/17/19 20:45 Haloperidol (Haldol) 5 mg Q12H PRN NG Agitation 11/14/19 12:00 12/26/19 00:00 Haloperidol Lactate (Haldol) 5 mg Q6H PRN IM Agitation 11/14/19 12:00 12/10/19 00:00 11/14/19 20:54 Hydralazine HCl (Apresoline) 25 mg Q8HR NG 11/17/19 14:00 02/15/20 13:59 11/17/19 14:31 Insulin Aspart (NovoLOG) Q6HR SUBQ 11/14/19 12:00 01/31/20 06:29 11/16/19 18:04 Lactulose (Cephulac) 10 gm BID NG 11/14/19 18:00 12/01/19 08:59 11/17/19 17:31 Lansoprazole (Prevacid) 30 mg DAILY NG 11/15/19 09:00 12/11/19 08:59 11/17/19 08:54 Levothyroxine Sodium (Synthroid) 75 mcg DAILY@0630 NG 11/15/19 06:30 12/04/19 06:29 11/15/19 05:48 Lisinopril (PriniviL) 20 mg Q12HR NG 11/15/19 21:00 12/13/19 20:59 11/17/19 20:42 Metoprolol Tartrate (Lopressor) 50 mg Q12HR NG 11/15/19 09:00 02/13/20 08:59 11/17/19 20:41 Polyethylene Glycol (Miralax) 17 gm BEDTIME NG 11/14/19 21:00 12/01/19 20:59 11/16/19 21:00 Sennosides (Senokot) 8.6 mg HSPRN PRN NG Constipation 11/14/19 12:00 12/14/19 11:59 Neurological/Psychiatric: Reports: depressed, weakness Allergies: Coded Allergies: PENICILLINS (Verified Allergy, Unknown, 10/25/19) tolerated Ceftriaxone Objective Data Height (Feet): 5 Height (Inches): 5.00 Weight (Pounds): 193 General Appearance: WD/WN, no apparent distress, alert Appearance: no abnormalities noted Behavior Mannerisms: good eye contact Mental Status Exam - Affect: blunted Mental Status Exam - Mood: anxious, agitated Mental Status Exam - Thought P: tangential, confusion Mental Status Exam - Thought C: delusions (specify) Mental Status Exam - Suicidal: not present Additional Comments: awake, confused, and disoriented. Mood is agitated. Affect is flat. Thought process, there is a paucity of thought content. Thought content, no suicidal or homicidal ideation. Cognition is impaired. Insight and judgment impaired. Assessment/Plan Status: unchanged Dada Finch MD Nov 17, 2019 23:34
[2019-11-18] VITALS: BP 119/57
[2019-11-18] MEDS: Acetaminophen 650mg/20.3ml NG PRN ×2 (00:28→10:03)
[2019-11-18] MEDS: Haloperidol 5mg/ml Inj IM PRN (00:28)
[2019-11-18 04:00] VITALS: BP 121/47
[2019-11-18] MEDS: NovoLOG Insulin Flexpen SUBQ SCH ×3 (05:57→17:40)
[2019-11-18] MEDS: HydrALAZINE 50mg tab NG SCH ×3 (05:59→22:00)
[2019-11-18 06:52] LABS: HEMATOCRIT 26.8 % (42.0-52.0); HEMOGLOBIN 7.8 G/DL (14.2-18.0); MEAN CORPUSCULAR VOLUME 100 FL (80-99); PLATELET COUNT 278 K/UL (150-450); RED BLOOD COUNT 2.68 M/UL (4.70-6.10); RED CELL DISTRIBUTION WIDTH 15.3 % (11.6-14.8); WHITE BLOOD COUNT 5.4 K/UL (4.8-10.8)
[2019-11-18 07:28] LABS: ALANINE AMINOTRANSFERASE 14 U/L (12-78); ALBUMIN 2.2 G/DL (3.4-5.0); ALBUMIN/GLOBULIN RATIO 0.6 (1.0-2.7); ALKALINE PHOSPHATASE 127 U/L (46-116); ANION GAP 2 mmol/L (5-15); ASPARTATE AMINO TRANSFERASE 17 U/L (15-37); BILIRUBIN,TOTAL 0.3 MG/DL (0.2-1.0); BLOOD UREA NITROGEN 91 mg/dL (7-18); CALCIUM 8.8 MG/DL (8.5-10.1); CARBON DIOXIDE 35 MMOL/L (21-32); CHLORIDE 105 MMOL/L (98-107); CREATININE 3.7 MG/DL (0.55-1.30); PHOSPHORUS 4.6 MG/DL (2.5-4.9); POTASSIUM 4.7 MMOL/L (3.5-5.1); SODIUM 142 MMOL/L (136-145)
[2019-11-18 08:00] VITALS: BP 121/49
[2019-11-18] MEDS: Lactulose 10gm/15ml UDC NG SCH ×2 (08:29→17:38)
[2019-11-18] MEDS: Docusate 100mg/10ml Liq NG SCH ×3 (08:29→17:38)
[2019-11-18] MEDS: Lisinopril 20mg tab NG SCH ×2 (08:33→21:00)
[2019-11-18] MEDS: Metoprolol Tartrate 50mg tab NG SCH ×2 (08:33→21:00)
--- NOTE | 2019-11-18 11:48 | General Progress Note ---
Assessment/Plan Problem List: (1) Hypertension ICD Codes: I10 - Essential (primary) hypertension SNOMED: 88949164 (2) Diabetes mellitus ICD Codes: E11.9 - Type 2 diabetes mellitus without complications SNOMED: 62885074 (3) Anemia ICD Codes: D64.9 - Anemia, unspecified SNOMED: 171882633 (4) Cholelithiasis ICD Codes: K80.20 - Calculus of gallbladder without cholecystitis without obstruction SNOMED: 916333015 (5) CHF (congestive heart failure) ICD Codes: I50.9 - Heart failure, unspecified SNOMED: 11731010 Status: unchanged Assessment/Plan: s/p PEG GTF tolerated HD per nephrology dc planning Subjective ROS Limited/Unobtainable: No Allergies: Coded Allergies: PENICILLINS (Verified Allergy, Unknown, 10/25/19) tolerated Ceftriaxone Objective Last 24 Hour Vital Signs Date Time Temp Pulse Resp B/P (MAP) Pulse Ox O2 Delivery O2 Flow Rate FiO2 11/18/19 08:33 121/49 11/18/19 08:33 64 121/49 11/18/19 08:29 64 121/49 11/18/19 08:00 98.1 64 19 121/49 (73) 98 11/18/19 06:41 Nasal Cannula 2.0 11/18/19 05:59 121/47 11/18/19 04:00 98.3 65 19 121/47 (71) 98 11/18/19 02:26 70 16 97 11/18/19 00:00 97.7 62 19 119/57 (77) 100 11/17/19 21:10 126/66 11/17/19 21:00 Nasal Cannula 2.0 11/17/19 20:42 126/66 11/17/19 20:41 82 126/66 11/17/19 20:00 97.7 64 20 126/66 (86) 99 11/17/19 19:41 97 Nasal Cannula 2.0 28 11/17/19 16:00 97.2 59 19 103/60 (74) 100 11/17/19 14:31 120/55 11/17/19 13:55 97.2 56 17 114/56 (75) 99 11/17/19 13:40 97.0 51 17 110/50 (70) 98 11/17/19 13:25 97.8 53 18 114/48 (70) 98 11/17/19 13:15 52 18 100 11/17/19 13:14 54 18 100 11/17/19 13:10 97.7 53 17 107/39 (61) 100 11/17/19 12:54 97.2 53 23 106/48 100 Nasal Cannula 3 11/17/19 12:40 52 22 105/44 100 Nasal Cannula 3 11/17/19 12:30 54 22 108/43 100 Simple Mask 6 11/17/19 12:25 52 24 104/43 100 Simple Mask 6 11/17/19 12:20 53 22 106/38 100 Simple Mask 6 11/17/19 12:14 97.2 54 18 103/74 100 Simple Mask 6 Intake and Output 11/17/19 11/18/19 19:00 07:00 Intake Total 420 ml 480 ml Output Total 425 ml Balance -5 ml 480 ml Free Water 60 ml IV Total 400 ml Tube Feeding 20 ml 420 ml Output Urine Total 425 ml # Bowel Movements 1 2 Laboratory Tests 11/17/19 13:19: POC Whole Blood Glucose [Pending] 11/17/19 23:31: POC Whole Blood Glucose 146H 11/18/19 05:42: White Blood Count 5.4, Red Blood Count 2.68L, Hemoglobin 7.8L, Hematocrit 26.8L , Mean Corpuscular Volume 100H, Mean Corpuscular Hemoglobin 29.1, Mean Corpuscular Hemoglobin Concent 29.1L, Red Cell Distribution Width 15.3H, Platelet Count 278, Mean Platelet Volume 7.9, Neutrophils (%) (Auto) , Lymphocytes (%) (Auto) , Monocytes (%) (Auto) , Eosinophils (%) (Auto) , Basophils (%) (Auto) , Differential Total Cells Counted 100, Neutrophils % ( Manual) 83H, Lymphocytes % (Manual) 7L, Monocytes % (Manual) 8, Eosinophils % ( Manual) 2, Basophils % (Manual) 0, Band Neutrophils 0, Platelet Estimate Adequate, Platelet Morphology Normal, Hypochromasia 2+, Anisocytosis 1+, Macrocytosis 1+, Stomatocytes Rare, Sodium Level 142, Potassium Level 4.7, Chloride Level 105, Carbon Dioxide Level 35H, Anion Gap 2L, Blood Urea Nitrogen 91H, Creatinine 3.7H, Estimat Glomerular Filtration Rate 15.8, Glucose Level 172H, Calcium Level 8.8, Phosphorus Level 4.6, Magnesium Level 2.9H, Total Bilirubin 0.3, Aspartate Amino Transf (AST/SGOT) 17, Alanine Aminotransferase ( ALT/SGPT) 14, Alkaline Phosphatase 127H, Total Protein 5.7L, Albumin 2.2L, Globulin 3.5, Albumin/Globulin Ratio 0.6L 11/18/19 05:54: POC Whole Blood Glucose 163H Height (Feet): 5 Height (Inches): 5.00 Weight (Pounds): 196 General Appearance: alert EENT: normal ENT inspection Neck: supple Cardiovascular: normal rate Respiratory/Chest: decreased breath sounds Abdomen: normal bowel sounds, non tender, soft Extremities: non-tender Lawrence Humphreys MD Nov 18, 2019 11:48
[2019-11-18 12:00] VITALS: BP 126/52
--- NOTE | 2019-11-18 13:11 | Hematology/Onc Progress Note ---
Assessment/Plan Assessment/Plan ASSESSMENT AND RECOMMENDATIONS: # Anemia of chronic disease due to underlying chronic medical issues, multifactorial --> Anemia w/u has been reviewed. --> no evidence of hemolysis is noted, peripheral smear has been reviewed --> hgb goal is >7, transfuse as needed --> currently remains stable, occult blood negative --> hgb 8.4->8.6->8.3->8->8.2->9.2-->9.2->8.9-->8.1-->8.7>9.4-->8.7-->8->7.8 --> some blood loss due to hematuria after inflated reyes pulled 8/6 am --> EPOGEN Started # Acute kidney injury r/o potential reversible component --> reviewed meds, those that are renally cleared removed --> as per renal recs, appreciated --> cr 3.5-->4.2 --> Hd started and dw renal # Hypertension, essential --> sbp goal is <140, consider anti-htn as needed --> currently started on hyralazine 25mg po q6h prn sbp >140 # CHF - hx of CHf --> diuresis with lasix as needed --> cardiology recs appreciated prior adm #. Leukocytosis with underlying infectionv stress reaction HISTORY --> per id and better --> for infection, ABX ctx/vanc-->off --> wbc 10-->5.9 #. Bilateral lower extremity amputee, metatarsal several years ago #. Dysphagia s/p peg --> peg pulled out and now with gtube #. Hyperkalemia -- kayxelate as needed #. Agitation requires restraints #. Dvt ppx scds --> apixaban->off for catheter placement 11/07 The time the note was entered does not necessarily correspond to the time the patient was seen. GREATLY APPRECIATE CONSULTATION. Subjective Constitutional: Denies: no symptoms, chills, fever, malaise, weakness, other HEENT: Denies: no symptoms, eye pain, blurred vision, tearing, double vision, ear pain, ear discharge, nose pain, nose congestion, throat pain, throat swelling, mouth pain, mouth swelling, other Cardiovascular: Denies: no symptoms, chest pain, edema, irregular heart rate, lightheadedness, palpitations, syncope, other Respiratory: Denies: no symptoms, cough, shortness of breath, SOB with excertion, SOB at rest, sputum, wheezing, other Gastrointestinal/Abdominal: Denies: no symptoms, abdomen distended, abdominal pain, black stools, tarry stools, blood in stool, constipated, diarrhea, difficulty swallowing, nausea, poor appetite, poor fluid intake, rectal bleeding , vomiting, other Genitourinary: Denies: no symptoms, burning, discharge, frequency, flank pain, hematuria, incontinence, pain, urgency, other Neurologic/Psychiatric: Denies: no symptoms, anxiety, depressed, emotional problems, headache, numbness, paresthesia, pre-existing deficit, seizure, tingling, tremors, weakness, other Endocrine: Denies: no symptoms, excessive sweating, flushing, intolerance to cold, intolerance to heat, increased hunger, increased thirst, increased urine, unexplained weight gain, unexplained weight loss, other Allergies: Coded Allergies: PENICILLINS (Verified Allergy, Unknown, 10/25/19) tolerated Ceftriaxone Subjective 10/[address] Chang, to do best to avoid haldol, continue restraints, jag rn, on nc, feeling better 10/25 still with some agitation overnight, meds reviewed, jag rn, haldol given in AM 10/26 is on 2l nc, also is on restraints, no night sweats, no bleeding 10/27 reyes catheter has been removed by patient, and resinserted, bed sheets, with bright red blood on exam 10/28 labs are noted, no bleeding, cr is worse, seen by renal, remains edematous 11/04 no major changes, hd as per renal, recs are noted, labs reviewed, pending neuro eval 11/05 is on bipap with restraints, no major changes, no bleeding, labs noted 11/06 remains agitated, is off eliquis for catheter placement for tuesday 11/07 on bipap, remains agitated, jag salas, procedure today 11/08 remains confused, no bleeding, meds noted, hgb 8.9, may need peg 11/09 on bipap, remains confused in restraints, jag rn, hgb lower 11/10 no new events, overnight bipap, now 2oxygen nc, cbc is pending, right chest pc 11/11 ngtube was pulled out, jag rn, on nc, holding dc, restraints needed 11/13 gtube was pulled out and now with ngt, no bleeding, jag rn 11/14 ng was taken out again, and reinserted by night rn, jag rn in am 11/15 remains with ng now, for peg scheduled today, labs noted, afebrile 11/16 no bleeding noted, no hemolysis, hgb remains approx 8 11/17 remains altered, no bleeding jag Rn, no major changes Objective Objective Current Medications Medications (Trade) Dose Ordered Sig/Cammy Route PRN Reason Start Time Stop Time Status Last Admin Dose Admin Acetaminophen (Tylenol) 650 mg Q6H PRN NG Pain 3-5 11/14/19 12:00 12/02/19 00:00 11/18/19 10:03 Amlodipine Besylate (Norvasc) 10 mg DAILY NG 11/15/19 09:00 11/25/19 08:59 11/18/19 08:29 Atorvastatin Calcium (Lipitor) 10 mg BEDTIME NG 11/14/19 21:00 01/21/20 20:59 11/17/19 20:42 Chlorhexidine Gluconate (Yi-Hex 2%) 1 applic DAILY@2000 TOPIC 11/14/19 20:00 01/31/20 19:59 11/17/19 20:41 Clonidine HCl (Catapres TTS-1) 1 patch QWEEK TDERMAL 11/19/19 19:00 02/10/20 18:59 Dextrose (Dextrose 50%) 25 ml Q30M PRN IV Hypoglycemia 11/14/19 10:45 01/20/20 21:44 Dextrose (Dextrose 50%) 50 ml Q30M PRN IV Hypoglycemia 11/14/19 10:45 01/20/20 21:44 Docusate Sodium (Colace) 100 mg THREE TIMES A DAY NG 11/14/19 13:00 12/02/19 17:59 11/18/19 12:19 Epoetin William (Epoetin William(ESRD on dialysis)) 10,000 unit FRI-WED-FRI SUBQ 11/15/19 21:00 02/01/20 20:59 11/17/19 20:45 Haloperidol (Haldol) 5 mg Q12H PRN NG Agitation 11/14/19 12:00 12/26/19 00:00 Haloperidol Lactate (Haldol) 5 mg Q6H PRN IM Agitation 11/14/19 12:00 12/10/19 00:00 11/18/19 00:28 Hydralazine HCl (Apresoline) 25 mg Q8HR NG 11/17/19 14:00 02/15/20 13:59 11/17/19 14:31 Insulin Aspart (NovoLOG) Q6HR SUBQ 11/14/19 12:00 01/31/20 06:29 11/18/19 12:21 Lactulose (Cephulac) 10 gm BID NG 11/14/19 18:00 12/01/19 08:59 11/18/19 08:29 Lansoprazole (Prevacid) 30 mg DAILY NG 11/15/19 09:00 12/11/19 08:59 11/18/19 08:29 Levothyroxine Sodium (Synthroid) 75 mcg DAILY@0630 NG 11/15/19 06:30 12/04/19 06:29 11/18/19 05:58 Lisinopril (PriniviL) 20 mg Q12HR NG 11/15/19 21:00 12/13/19 20:59 11/17/19 20:42 Metoprolol Tartrate (Lopressor) 50 mg Q12HR NG 11/15/19 09:00 02/13/20 08:59 11/18/19 08:33 Polyethylene Glycol (Miralax) 17 gm BEDTIME NG 11/14/19 21:00 12/01/19 20:59 11/16/19 21:00 Sennosides (Senokot) 8.6 mg HSPRN PRN NG Constipation 11/14/19 12:00 12/14/19 11:59 Last 24 Hour Vital Signs Date Time Temp Pulse Resp B/P (MAP) Pulse Ox O2 Delivery O2 Flow Rate FiO2 11/18/19 08:33 121/49 11/18/19 08:33 64 121/49 11/18/19 08:29 64 121/49 11/18/19 08:00 98.1 64 19 121/49 (73) 98 11/18/19 06:41 Nasal Cannula 2.0 11/18/19 05:59 121/47 11/18/19 04:00 98.3 65 19 121/47 (71) 98 11/18/19 02:26 70 16 97 11/18/19 00:00 97.7 62 19 119/57 (77) 100 11/17/19 21:10 126/66 11/17/19 21:00 Nasal Cannula 2.0 11/17/19 20:42 126/66 11/17/19 20:41 82 126/66 11/17/19 20:00 97.7 64 20 126/66 (86) 99 11/17/19 19:41 97 Nasal Cannula 2.0 28 11/17/19 16:00 97.2 59 19 103/60 (74) 100 11/17/19 14:31 120/55 11/17/19 13:55 97.2 56 17 114/56 (75) 99 11/17/19 13:40 97.0 51 17 110/50 (70) 98 11/17/19 13:25 97.8 53 18 114/48 (70) 98 11/17/19 13:15 52 18 100 11/17/19 13:14 54 18 100 11/17/19 13:10 97.7 53 17 107/39 (61) 100 11/17/19 12:54 97.2 53 23 106/48 100 Nasal Cannula 3 11/17/19 12:40 52 22 105/44 100 Nasal Cannula 3 11/17/19 12:30 54 22 108/43 100 Simple Mask 6 11/17/19 12:25 52 24 104/43 100 Simple Mask 6 11/17/19 12:20 53 22 106/38 100 Simple Mask 6 11/17/19 12:14 97.2 54 18 103/74 100 Simple Mask 6 11/17/19 09:00 Nasal Cannula 2.0 11/17/19 08:55 152/75 11/17/19 08:55 71 152/75 11/17/19 08:55 71 152/75 11/17/19 08:14 96 Nasal Cannula 2.0 28 11/17/19 08:00 97.3 71 19 152/75 (100) 95 11/17/19 04:00 98.0 74 20 139/52 (81) 96 11/17/19 00:00 98.7 65 18 142/63 (89) 96 11/16/19 21:00 146/59 11/16/19 21:00 70 146/59 11/16/19 20:13 Nasal Cannula 2.0 11/16/19 20:00 98.5 70 17 146/59 (88) 96 11/16/19 19:00 98 Nasal Cannula 2.0 28 11/16/19 16:00 96.7 65 20 128/61 (83) 99 Intake and Output 11/17/19 11/18/19 19:00 07:00 Intake Total 420 ml 480 ml Output Total 425 ml Balance -5 ml 480 ml Free Water 60 ml IV Total 400 ml Tube Feeding 20 ml 420 ml Output Urine Total 425 ml # Bowel Movements 1 2 Labs Test 11/15/19 16:58 11/15/19 23:27 11/16/19 05:10 11/16/19 05:27 POC Whole Blood Glucose 179 MG/DL (74-106) 162 MG/DL (74-106) White Blood Count 7.0 K/UL (4.8-10.8) Red Blood Count 2.94 M/UL (4.70-6.10) Hemoglobin 8.7 G/DL (14.2-18.0) Hematocrit 29.5 % (42.0-52.0) Mean Corpuscular Volume 100 FL (80-99) Mean Corpuscular Hemoglobin 29.6 PG (27.0-31.0) Mean Corpuscular Hemoglobin Concent 29.5 G/DL (32.0-36.0) Red Cell Distribution Width 15.4 % (11.6-14.8) Platelet Count 263 K/UL (150-450) Mean Platelet Volume 6.7 FL (6.5-10.1) Neutrophils (%) (Auto) 79.6 % (45.0-75.0) Lymphocytes (%) (Auto) 15.4 % (20.0-45.0) Monocytes (%) (Auto) 3.3 % (1.0-10.0) Eosinophils (%) (Auto) 1.0 % (0.0-3.0) Basophils (%) (Auto) 0.6 % (0.0-2.0) Sodium Level 141 MMOL/L (136-145) Potassium Level 4.5 MMOL/L (3.5-5.1) Chloride Level 102 MMOL/L (98-107) Carbon Dioxide Level 35 MMOL/L (21-32) Anion Gap 4 mmol/L (5-15) Blood Urea Nitrogen 79 mg/dL (7-18) Creatinine 3.2 MG/DL (0.55-1.30) Estimat Glomerular Filtration Rate 18.7 mL/min (>60) Glucose Level 123 MG/DL (74-106) Uric Acid 7.1 MG/DL (2.6-7.2) Calcium Level 9.9 MG/DL (8.5-10.1) Phosphorus Level 3.7 MG/DL (2.5-4.9) Magnesium Level 3.0 MG/DL (1.8-2.4) Total Bilirubin 0.4 MG/DL (0.2-1.0) Aspartate Amino Transf (AST/SGOT) 21 U/L (15-37) Alanine Aminotransferase (ALT/SGPT) 16 U/L (12-78) Alkaline Phosphatase 125 U/L (46-116) C-Reactive Protein, Quantitative 2.9 mg/dL (0.00-0.90) Pro-B-Type Natriuretic Peptide 98045 pg/mL (0-125) Total Protein 6.0 G/DL (6.4-8.2) Albumin 2.3 G/DL (3.4-5.0) Globulin 3.7 g/dL Albumin/Globulin Ratio 0.6 (1.0-2.7) Test 11/16/19 12:09 11/16/19 17:27 11/16/19 23:05 11/17/19 04:49 POC Whole Blood Glucose 143 MG/DL (74-106) 143 MG/DL (74-106) 128 MG/DL (74-106) White Blood Count 5.9 K/UL (4.8-10.8) Red Blood Count 2.72 M/UL (4.70-6.10) Hemoglobin 8.0 G/DL (14.2-18.0) Hematocrit 27.3 % (42.0-52.0) Mean Corpuscular Volume 101 FL (80-99) Mean Corpuscular Hemoglobin 29.4 PG (27.0-31.0) Mean Corpuscular Hemoglobin Concent 29.2 G/DL (32.0-36.0) Red Cell Distribution Width 15.7 % (11.6-14.8) Platelet Count 258 K/UL (150-450) Mean Platelet Volume 7.2 FL (6.5-10.1) Neutrophils (%) (Auto) 76.9 % (45.0-75.0) Lymphocytes (%) (Auto) 16.1 % (20.0-45.0) Monocytes (%) (Auto) 4.8 % (1.0-10.0) Eosinophils (%) (Auto) 1.2 % (0.0-3.0) Basophils (%) (Auto) 0.9 % (0.0-2.0) Sodium Level 141 MMOL/L (136-145) Potassium Level 4.8 MMOL/L (3.5-5.1) Chloride Level 102 MMOL/L (98-107) Carbon Dioxide Level 34 MMOL/L (21-32) Anion Gap 6 mmol/L (5-15) Blood Urea Nitrogen 87 mg/dL (7-18) Creatinine 3.4 MG/DL (0.55-1.30) Estimat Glomerular Filtration Rate 17.5 mL/min (>60) Glucose Level 126 MG/DL (74-106) Calcium Level 9.5 MG/DL (8.5-10.1) Phosphorus Level 4.8 MG/DL (2.5-4.9) Magnesium Level 3.0 MG/DL (1.8-2.4) Total Bilirubin 0.4 MG/DL (0.2-1.0) Aspartate Amino Transf (AST/SGOT) 18 U/L (15-37) Alanine Aminotransferase (ALT/SGPT) 10 U/L (12-78) Alkaline Phosphatase 109 U/L (46-116) Total Protein 5.7 G/DL (6.4-8.2) Albumin 2.3 G/DL (3.4-5.0) Globulin 3.4 g/dL Albumin/Globulin Ratio 0.7 (1.0-2.7) Test 11/17/19 05:31 11/17/19 13:19 11/17/19 23:31 11/18/19 05:42 POC Whole Blood Glucose 131 MG/DL (74-106) 146 MG/DL (74-106) White Blood Count 5.4 K/UL (4.8-10.8) Red Blood Count 2.68 M/UL (4.70-6.10) Hemoglobin 7.8 G/DL (14.2-18.0) Hematocrit 26.8 % (42.0-52.0) Mean Corpuscular Volume 100 FL (80-99) Mean Corpuscular Hemoglobin 29.1 PG (27.0-31.0) Mean Corpuscular Hemoglobin Concent 29.1 G/DL (32.0-36.0) Red Cell Distribution Width 15.3 % (11.6-14.8) Platelet Count 278 K/UL (150-450) Mean Platelet Volume 7.9 FL (6.5-10.1) Neutrophils (%) (Auto) % (45.0-75.0) Lymphocytes (%) (Auto) % (20.0-45.0) Monocytes (%) (Auto) % (1.0-10.0) Eosinophils (%) (Auto) % (0.0-3.0) Basophils (%) (Auto) % (0.0-2.0) Differential Total Cells Counted 100 Neutrophils % (Manual) 83 % (45-75) Lymphocytes % (Manual) 7 % (20-45) Monocytes % (Manual) 8 % (1-10) Eosinophils % (Manual) 2 % (0-3) Basophils % (Manual) 0 % (0-2) Band Neutrophils 0 % (0-8) Platelet Estimate Adequate Platelet Morphology Normal Hypochromasia 2+ Anisocytosis 1+ Macrocytosis 1+ Stomatocytes Rare Sodium Level 142 MMOL/L (136-145) Potassium Level 4.7 MMOL/L (3.5-5.1) Chloride Level 105 MMOL/L (98-107) Carbon Dioxide Level 35 MMOL/L (21-32) Anion Gap 2 mmol/L (5-15) Blood Urea Nitrogen 91 mg/dL (7-18) Creatinine 3.7 MG/DL (0.55-1.30) Estimat Glomerular Filtration Rate 15.8 mL/min (>60) Glucose Level 172 MG/DL (74-106) Calcium Level 8.8 MG/DL (8.5-10.1) Phosphorus Level 4.6 MG/DL (2.5-4.9) Magnesium Level 2.9 MG/DL (1.8-2.4) Total Bilirubin 0.3 MG/DL (0.2-1.0) Aspartate Amino Transf (AST/SGOT) 17 U/L (15-37) Alanine Aminotransferase (ALT/SGPT) 14 U/L (12-78) Alkaline Phosphatase 127 U/L (46-116) Total Protein 5.7 G/DL (6.4-8.2) Albumin 2.2 G/DL (3.4-5.0) Globulin 3.5 g/dL Albumin/Globulin Ratio 0.6 (1.0-2.7) Test 11/18/19 05:54 11/18/19 12:18 POC Whole Blood Glucose 163 MG/DL (74-106) 165 MG/DL (74-106) Height (Feet): 5 Height (Inches): 5.00 Weight (Pounds): 196 Objective GENERAL: Not in acute distress. HEENT: ++ngt PULMONARY: Decreased breath sounds. ++ bipap CHEST: ++permacath CARDIOVASCULAR: Regular rate. No S3 or S4. ABDOMEN: Soft, nontender, nondistended.++peg EXTREMITIES: 1+ edema. No cyanosis, swelling, or edema. 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 Melvin Rizzo MD Nov 18, 2019 13:11
--- NOTE | 2019-11-18 13:33 | Infectious Diseases Prog Note ---
Assessment/Plan 79yo M from SNF who p/w hypoglycemia and resp failure: Acute hypoxic respiratory failure, on BiPAP > 2L NC> RA > 2L NC Rapid COVID neg x2 (10/21, 10/24) Pneumonia on CXR, sp rx Volume overload 10/30 CXR: Slightly improved 10/25 CXR: Bilateral alveolar densities are unchanged 10/24 Sp cx normal resp demario (prelim) 10/23 CXR: 1. Small layering right pleural effusion, not significantly changed. The previously noted small left pleural effusion is not as evident.Prominent lung markings and haziness, right greater left, which may be related to pulmonary vascular congestion versus pneumonitis. This is not significantly changed.. Subsegmental atelectasis versus infiltrate in the medial left lung base, also not significantly changed. 10/21 CXR: 1. Small bilateral pleural effusions. Bibasilar atelectasis versus pneumonia. 2. Prominent lung markings and hazy opacities in right greater than left lungs may represent artifact versus pulmonary vasculature congestion and edema versus infectious/inflammatory process. 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 Afebrile No leukocytosis Anemia to 6.8, improved UA neg, UCx neg 10/21 BCx Neg ALEXIS on CKD, worsening --> now on HD HBsAg neg Plan: Cont to monitor off abx 11/07 Clindamycin x1 for catheter placement 10/31 SP CTX #7 10/26 SP vancomycin IV #5 Trend resp status Monitor CBC, CMP recommend ENT eval as outpt PEG care aspiration precautions discharge planning Thank you for this consult. [facility] will continue to follow. Subjective Allergies: Coded Allergies: PENICILLINS (Verified Allergy, Unknown, 10/25/19) tolerated Ceftriaxone afebrile at 2l NC no leukocytosis Objective Last 24 Hour Vital Signs Date Time Temp Pulse Resp B/P (MAP) Pulse Ox O2 Delivery O2 Flow Rate FiO2 11/18/19 13:24 98 Nasal Cannula 2.0 11/18/19 12:00 97.9 72 19 126/52 (76) 97 11/18/19 08:33 121/49 11/18/19 08:33 64 121/49 11/18/19 08:29 64 121/49 11/18/19 08:00 98.1 64 19 121/49 (73) 98 11/18/19 06:41 Nasal Cannula 2.0 11/18/19 05:59 121/47 11/18/19 04:00 98.3 65 19 121/47 (71) 98 11/18/19 02:26 70 16 97 11/18/19 00:00 97.7 62 19 119/57 (77) 100 11/17/19 21:10 126/66 11/17/19 21:00 Nasal Cannula 2.0 11/17/19 20:42 126/66 11/17/19 20:41 82 126/66 11/17/19 20:00 97.7 64 20 126/66 (86) 99 11/17/19 19:41 97 Nasal Cannula 2.0 28 11/17/19 16:00 97.2 59 19 103/60 (74) 100 11/17/19 14:31 120/55 11/17/19 13:55 97.2 56 17 114/56 (75) 99 11/17/19 13:40 97.0 51 17 110/50 (70) 98 Height (Feet): 5 Height (Inches): 5.00 Weight (Pounds): 196 Gen NAD Pulm: BL chest rise Abd: soft, NTND; abd binder in place Ext: No c/c/e, 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 skin: no rash Laboratory Tests Test 11/17/19 23:31 11/18/19 05:42 11/18/19 05:54 11/18/19 12:18 POC Whole Blood Glucose 146 MG/DL (74-106) H 163 MG/DL (74-106) H 165 MG/DL (74-106) H White Blood Count 5.4 K/UL (4.8-10.8) Red Blood Count 2.68 M/UL (4.70-6.10) L Hemoglobin 7.8 G/DL (14.2-18.0) L Hematocrit 26.8 % (42.0-52.0) L Mean Corpuscular Volume 100 FL (80-99) H Mean Corpuscular Hemoglobin 29.1 PG (27.0-31.0) Mean Corpuscular Hemoglobin Concent 29.1 G/DL (32.0-36.0) L Red Cell Distribution Width 15.3 % (11.6-14.8) H Platelet Count 278 K/UL (150-450) Mean Platelet Volume 7.9 FL (6.5-10.1) Neutrophils (%) (Auto) % (45.0-75.0) Lymphocytes (%) (Auto) % (20.0-45.0) Monocytes (%) (Auto) % (1.0-10.0) Eosinophils (%) (Auto) % (0.0-3.0) Basophils (%) (Auto) % (0.0-2.0) Differential Total Cells Counted 100 Neutrophils % (Manual) 83 % (45-75) H Lymphocytes % (Manual) 7 % (20-45) L Monocytes % (Manual) 8 % (1-10) Eosinophils % (Manual) 2 % (0-3) Basophils % (Manual) 0 % (0-2) Band Neutrophils 0 % (0-8) Platelet Estimate Adequate Platelet Morphology Normal Hypochromasia 2+ Anisocytosis 1+ Macrocytosis 1+ Stomatocytes Rare Sodium Level 142 MMOL/L (136-145) Potassium Level 4.7 MMOL/L (3.5-5.1) Chloride Level 105 MMOL/L (98-107) Carbon Dioxide Level 35 MMOL/L (21-32) H Anion Gap 2 mmol/L (5-15) L Blood Urea Nitrogen 91 mg/dL (7-18) H Creatinine 3.7 MG/DL (0.55-1.30) H Estimat Glomerular Filtration Rate 15.8 mL/min (>60) Glucose Level 172 MG/DL (74-106) H Calcium Level 8.8 MG/DL (8.5-10.1) Phosphorus Level 4.6 MG/DL (2.5-4.9) Magnesium Level 2.9 MG/DL (1.8-2.4) H Total Bilirubin 0.3 MG/DL (0.2-1.0) Aspartate Amino Transf (AST/SGOT) 17 U/L (15-37) Alanine Aminotransferase (ALT/SGPT) 14 U/L (12-78) Alkaline Phosphatase 127 U/L (46-116) H Total Protein 5.7 G/DL (6.4-8.2) L Albumin 2.2 G/DL (3.4-5.0) L Globulin 3.5 g/dL Albumin/Globulin Ratio 0.6 (1.0-2.7) L Current Medications Medications (Trade) Dose Ordered Sig/Cammy Route PRN Reason Start Time Stop Time Status Last Admin Dose Admin Acetaminophen (Tylenol) 650 mg Q6H PRN NG Pain 3-5 11/14/19 12:00 12/02/19 00:00 11/18/19 10:03 Amlodipine Besylate (Norvasc) 10 mg DAILY NG 11/15/19 09:00 11/25/19 08:59 11/18/19 08:29 Atorvastatin Calcium (Lipitor) 10 mg BEDTIME NG 11/14/19 21:00 01/21/20 20:59 11/17/19 20:42 Chlorhexidine Gluconate (Yi-Hex 2%) 1 applic DAILY@1999 TOPIC 11/14/19 20:00 01/31/20 19:59 11/17/19 20:41 Clonidine HCl (Catapres TTS-1) 1 patch QWEEK TDERMAL 11/19/19 19:00 02/10/20 18:59 Dextrose (Dextrose 50%) 25 ml Q30M PRN IV Hypoglycemia 11/14/19 10:45 01/20/20 21:44 Dextrose (Dextrose 50%) 50 ml Q30M PRN IV Hypoglycemia 11/14/19 10:45 01/20/20 21:44 Docusate Sodium (Colace) 100 mg THREE TIMES A DAY NG 11/14/19 13:00 12/02/19 17:59 11/18/19 12:19 Epoetin William (Epoetin William(ESRD on dialysis)) 10,000 unit -FRI SUBQ 11/15/19 21:00 02/01/20 20:59 11/17/19 20:45 Haloperidol (Haldol) 5 mg Q12H PRN NG Agitation 11/14/19 12:00 12/26/19 00:00 Haloperidol Lactate (Haldol) 5 mg Q6H PRN IM Agitation 11/14/19 12:00 12/10/19 00:00 11/18/19 00:28 Hydralazine HCl (Apresoline) 25 mg Q8HR NG 11/17/19 14:00 02/15/20 13:59 11/17/19 14:31 Insulin Aspart (NovoLOG) Q6HR SUBQ 11/14/19 12:00 01/31/20 06:29 11/18/19 12:21 Lactulose (Cephulac) 10 gm BID NG 11/14/19 18:00 12/01/19 08:59 11/18/19 08:29 Lansoprazole (Prevacid) 30 mg DAILY NG 11/15/19 09:00 12/11/19 08:59 11/18/19 08:29 Levothyroxine Sodium (Synthroid) 75 mcg DAILY@0630 NG 11/15/19 06:30 12/04/19 06:29 11/18/19 05:58 Lisinopril (PriniviL) 20 mg Q12HR NG 11/15/19 21:00 12/13/19 20:59 11/17/19 20:42 Metoprolol Tartrate (Lopressor) 50 mg Q12HR NG 11/15/19 09:00 02/13/20 08:59 11/18/19 08:33 Polyethylene Glycol (Miralax) 17 gm BEDTIME NG 11/14/19 21:00 12/01/19 20:59 11/16/19 21:00 Sennosides (Senokot) 8.6 mg HSPRN PRN NG Constipation 11/14/19 12:00 12/14/19 11:59 Trinity Pan M.D. Nov 18, 2019 13:33
--- NOTE | 2019-11-18 13:46 | Surgery Progress Note ---
Surgery Progress Note Subjective Procedure Performed removal Right femoral temporary hemodialysis catheter Additional Comments new skin breakdown noted at scrotum labs reviewed comfortable Objective Last 24 Hour Vital Signs Date Time Temp Pulse Resp B/P (MAP) Pulse Ox O2 Delivery O2 Flow Rate FiO2 11/18/19 13:24 98 Nasal Cannula 2.0 28 11/18/19 12:00 97.9 72 19 126/52 (76) 97 11/18/19 08:33 121/49 11/18/19 08:33 64 121/49 11/18/19 08:29 64 121/49 11/18/19 08:00 98.1 64 19 121/49 (73) 98 11/18/19 06:41 Nasal Cannula 2.0 11/18/19 05:59 121/47 11/18/19 04:00 98.3 65 19 121/47 (71) 98 11/18/19 02:26 70 16 97 11/18/19 00:00 97.7 62 19 119/57 (77) 100 11/17/19 21:10 126/66 11/17/19 21:00 Nasal Cannula 2.0 11/17/19 20:42 126/66 11/17/19 20:41 82 126/66 11/17/19 20:00 97.7 64 20 126/66 (86) 99 11/17/19 19:41 97 Nasal Cannula 2.0 28 11/17/19 16:00 97.2 59 19 103/60 (74) 100 11/17/19 14:31 120/55 11/17/19 13:55 97.2 56 17 114/56 (75) 99 I&O Intake and Output 11/17/19 11/18/19 19:00 07:00 Intake Total 420 ml 480 ml Output Total 425 ml Balance -5 ml 480 ml Free Water 60 ml IV Total 400 ml Tube Feeding 20 ml 420 ml Output Urine Total 425 ml # Bowel Movements 1 2 Dressing: saturated Cardiovascular: RSR Respiratory: decreased breath sounds Abdomen: soft, non-tender, present bowel sounds Extremities: no edema, no tenderness, no cyanosis Laboratory Tests Test 11/17/19 23:31 11/18/19 05:42 11/18/19 05:54 11/18/19 12:18 POC Whole Blood Glucose 146 MG/DL (74-106) H 163 MG/DL (74-106) H 165 MG/DL (74-106) H White Blood Count 5.4 K/UL (4.8-10.8) Red Blood Count 2.68 M/UL (4.70-6.10) L Hemoglobin 7.8 G/DL (14.2-18.0) L Hematocrit 26.8 % (42.0-52.0) L Mean Corpuscular Volume 100 FL (80-99) H Mean Corpuscular Hemoglobin 29.1 PG (27.0-31.0) Mean Corpuscular Hemoglobin Concent 29.1 G/DL (32.0-36.0) L Red Cell Distribution Width 15.3 % (11.6-14.8) H Platelet Count 278 K/UL (150-450) Mean Platelet Volume 7.9 FL (6.5-10.1) Neutrophils (%) (Auto) % (45.0-75.0) Lymphocytes (%) (Auto) % (20.0-45.0) Monocytes (%) (Auto) % (1.0-10.0) Eosinophils (%) (Auto) % (0.0-3.0) Basophils (%) (Auto) % (0.0-2.0) Differential Total Cells Counted 100 Neutrophils % (Manual) 83 % (45-75) H Lymphocytes % (Manual) 7 % (20-45) L Monocytes % (Manual) 8 % (1-10) Eosinophils % (Manual) 2 % (0-3) Basophils % (Manual) 0 % (0-2) Band Neutrophils 0 % (0-8) Platelet Estimate Adequate Platelet Morphology Normal Hypochromasia 2+ Anisocytosis 1+ Macrocytosis 1+ Stomatocytes Rare Sodium Level 142 MMOL/L (136-145) Potassium Level 4.7 MMOL/L (3.5-5.1) Chloride Level 105 MMOL/L (98-107) Carbon Dioxide Level 35 MMOL/L (21-32) H Anion Gap 2 mmol/L (5-15) L Blood Urea Nitrogen 91 mg/dL (7-18) H Creatinine 3.7 MG/DL (0.55-1.30) H Estimat Glomerular Filtration Rate 15.8 mL/min (>60) Glucose Level 172 MG/DL (74-106) H Calcium Level 8.8 MG/DL (8.5-10.1) Phosphorus Level 4.6 MG/DL (2.5-4.9) Magnesium Level 2.9 MG/DL (1.8-2.4) H Total Bilirubin 0.3 MG/DL (0.2-1.0) Aspartate Amino Transf (AST/SGOT) 17 U/L (15-37) Alanine Aminotransferase (ALT/SGPT) 14 U/L (12-78) Alkaline Phosphatase 127 U/L (46-116) H Total Protein 5.7 G/DL (6.4-8.2) L Albumin 2.2 G/DL (3.4-5.0) L Globulin 3.5 g/dL Albumin/Globulin Ratio 0.6 (1.0-2.7) L Plan Problems: (1) Hypercarbia (2) Pleural effusion (3) Chronic renal failure (4) Anemia (5) CHF (congestive heart failure) (6) Bacteremia (7) Cellulitis Assessment & Plan: improving no active bleeding reyes okay will monitor (8) Hypoglycemia (9) Hyponatremia (10) ATN (acute tubular necrosis) (11) Metabolic acidosis Assessment & Plan: DYSPHAGIA RISK FACTORS INCLUDE: RESPIRATORY WELL MULTIPLE MEDICAL COMPLICATIONS, SHORTNESS OF BREATH, WORK OF BREATHING, DECREASED MENTATION, HX OF SUBOPTIMAL P.O. INTAKE, LETHARGY (DIFFICULTY SUSTAINING WAKEFULNESS) , CLINICAL HISTORY: AMS CURRENT CXR: Indication: Shortness of breath Technique: One view of the chest Comparison: 10/31/2019 Findings: Interim placement of nasogastric tube, tip projected at the level of the gastric body. This was also demonstrated on 11/01/2019 abdominal radiograph. Bilateral hazy opacity appears similar to or perhaps slightly increased from the prior study. Generalized mild interstitial prominence persists. 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 TRIALS OF ICE CHIPS, ONE AT A TIME. LINGUAL SIZE PRESENTS ENLARGED. PATIENT PERSISTENTLY MOUTH BREATHING. WHEN PRESENTED WITH ONE ICE CHIP HE MANIPULATED IT, ALLOWED IT TO MELT ON HIS TONGUE AND AFTER A MODERATE DELAY, HE SWALLOWED. RR CHANGES FROM 18 BREATHS PER MINUTE TO 25 BREATHS PER MINUTE ALONG WITH WORK OF BREATHING. WHEN ASKED TO SAY "AH" POST SWALLOW, PATIENTS VOCAL QUALITY WAS WET/GURGLY. HYOLARYNGEAL EXCURSION PRESENTED MODERATELY DECREASED. PATIENT ESSENTIALLY NON/VERBAL THIS AFTERNOON. HIGH ASPIRATION RISK. HIS RISK FOR CONSISTENT/STABLE/SUFFICIENT P.O. INTAKE TO SUPPORT NUTRITION/HYDRATION NEEDS. RECOMMENDATIONS: 1. CONTINUE NON/ORAL FEEDING MANAGEMENT PRIMARY SOURCE OF NUTRITION/ HYDRATION/MEDICATION 2. NPO STATUS 3. RE/ORDER SWALLOW EVALUATION IF/WHEN PATIENTS MEDICAL STATUS STABILIZES. DAILY ESTIMATED NEEDS: Needs based on Critical care, wound 71kg abw 22-28 kcals/kg 6171-4455 total kcals 1.25-2 g protein/kg 88-154 g total protein 25-30 mL/kg 1139-5277 total fluid mLs NUTRITION DIAGNOSIS: 1) Swallowing difficulty r/t respiratory status as evidenced by pt is vent dep via trach, GT dep. 2) Increased kcal/prot needs R/T wound healing as evidenced by pt admitted w/ multiple wounds including full thickness x3, refer to wound care eval for full report. CURRENT TF:NPO ENTERAL NUTRITION RECOMMENDATIONS: Glucerna 1.2 @60ml/hr x24 hrs + Prosource 1pkt QD to provide 1440ml, 1728 kcal, 86g +11g pro, 1159ml free H2o - As medically appropriate, initiate Glucerna 1.2 @ 30ml/hr x 6hrs - Advance 10ml q 4-6 hrs as tolerated to goal rate - Add Prosource 1pkt daily to better meet protein needs - HOB over 30 degrees/ water flush 120ml q 4hrs PARENTERAL NUTRITION RECOMMENDATIONS TPN Comment: Rec TPN to meet est needs with anticipated prolonged NPO status ADDITIONAL RECOMMENDATIONS: 1) Calibrated bedscale wt 2) Rec adding D5 IVF while pt is NPO to prevent hypoglycemia 3) Monitor lytes w/ TF, replete as needed 4) Wound healing: Vit C 250mg BID + SILVESTRE BID w/ TF orders 5) Monitor need for NISS w/ TF: h/o DM 6) Consider TPN w/ anticipated prolonged NPO status Hardware: Nasogastric tube terminates in the region of the stomach. Distal portion of a central venous catheter terminates in the junction of the SVC and right atrium. Abdomen: Nonspecific partially visualized bowel gas pattern. No free air. Bones: Normal. Soft tissues: Normal. Visualized chest: Hazy and interstitial opacities and right greater than left lungs. Atherosclerotic calcifications of the aorta. Borderline size of the cardiac silhouette. IMPRESSION: Nasogastric tube terminates in the region of the stomach. (12) Pneumonia (13) Cellulitis of foot Assessment & Plan: Pt presented on admission with Bilat TMA. Pressure injuries both heels. Stable dry necrosis note to Plantar /lateral L TMA. L Heel is boggy with non- Blanchable erythema. . R Heel Boggy with Non-Blanchable erythema.Haemosiderin with Xerosis skin noted to R and L lower ext. Darker skin tone without erythema , induration or fluctuance Medial L Malleolus. Darker skin tone without erythema or induration noted to sacrum. Tx.Plan: Apply Moisture Barrier Paste to Sacrum. Cover with Optifoam drsg.Change every 3 days and prn. Apply Betadine to eschar plantar/lateral L TMA . Cover with Optifoam drsg. Change every 3 days and prn. Apply Cavilon Skin Barrier to both heels and Malleoli. Cover each site with Optifoam drsg. Change every 7days and prn. Reposition at least every 2hours or as tolerated. Off load heels with pillow.Hx prior amputation prior MRI and plain films reviewed wounds stable and local care being provided no abscess noted cont with dressings elevate heels with pillow turn q2h off load pressure air mattress will follow with recs thank you (14) Osteomyelitis (15) History of hypertension (16) Renal failure (ARF), acute on chronic Assessment & Plan: HD line removed 11/09 (17) Acute encephalopathy (18) Diabetes mellitus (19) Hypertension (20) Cholelithiasis Assessment & Plan: US reviewed exam benign asymptomatic cholelithiasis alk phos mild elevated lfts improved trend labs no acute surgical intervention planned Liver: Liver measures 14.8 cm. No intrahepatic bile duct dilation. Gallbladder: Small stone in the gallbladder. No significant gallbladder wall thickening or pericholecystic fluid. Negative sonographic Bianchi's sign. Common bile duct: Normal common bile duct measuring 4.5 mm. No stones. No dilation. Pancreas: Pancreas is not visualized due to overlying bowel gas. Kidneys: Right kidney measures 9.1 cm in length. No hydronephrosis or stone. Left kidney not visualized due to patient's body habitus. Spleen: Spleen measures 9.4 cm. No focal lesion. Aorta: Visualized portions of the aorta are grossly unremarkable. The mid and distal portions are obscured by bowel gas. Inferior vena cava: Unremarkable. Free fluid: No ascites. Tubes, lines and devices: Reyes catheter in a decompressed bladder. IMPRESSION: Small stone in the gallbladder. No significant gallbladder wall thickening or pericholecystic fluid. Negative sonographic Bianchi's sign. Mariusz Diehl Nov 18, 2019 13:46
--- NOTE | 2019-11-18 14:20 | Pulmonology Progress Note ---
Reema Hanna A AND P TECHNICIAN 11/18/19 1420: Subjective ROS Limited/Unobtainable: No Constitutional: Denies: no symptoms, fever, chills, fatigue, anorexia, drenching sweats, other Neurologic: Reports: headache Allergies: Coded Allergies: PENICILLINS (Verified Allergy, Unknown, 10/25/19) tolerated Ceftriaxone Subjective on 2L O2 via NC BiPAP at HS no signs of resp distress pulled out G tube, failed swallow eval s/p new PEG 11/16. tolerates GTF Objective Last 24 Hour Vital Signs Date Time Temp Pulse Resp B/P (MAP) Pulse Ox O2 Delivery O2 Flow Rate FiO2 11/18/19 13:50 100/46 11/18/19 13:24 98 Nasal Cannula 2.0 28 11/18/19 12:00 97.9 72 19 126/52 (76) 97 11/18/19 08:33 121/49 11/18/19 08:33 64 121/49 11/18/19 08:29 64 121/49 11/18/19 08:00 98.1 64 19 121/49 (73) 98 11/18/19 06:41 Nasal Cannula 2.0 11/18/19 05:59 121/47 11/18/19 04:00 98.3 65 19 121/47 (71) 98 11/18/19 02:26 70 16 97 11/18/19 00:00 97.7 62 19 119/57 (77) 100 11/17/19 21:10 126/66 11/17/19 21:00 Nasal Cannula 2.0 11/17/19 20:42 126/66 11/17/19 20:41 82 126/66 11/17/19 20:00 97.7 64 20 126/66 (86) 99 11/17/19 19:41 97 Nasal Cannula 2.0 28 11/17/19 16:00 97.2 59 19 103/60 (74) 100 11/17/19 14:31 120/55 Intake and Output 11/17/19 11/18/19 19:00 07:00 Intake Total 420 ml 480 ml Output Total 425 ml Balance -5 ml 480 ml Free Water 60 ml IV Total 400 ml Tube Feeding 20 ml 420 ml Output Urine Total 425 ml # Bowel Movements 1 2 Objective General Appearance: no apparent distress, Amharic speaking awake, more alert and responsive male, Lines, tubes and drains: R chest tunneled HD catheter , R femoral temporal HD catheter HEENT: normocephalic, atraumatic, anicteric, mucous membranes moist, O2 2 L via NC, Respiratory/Chest: few scattered crackles, no exp wheezing, Cardiovascular/Chest: normal rate, SR Abdomen: normal bowel sounds, non tender, soft , abd binder, GT with TF Extremities: partially amputated BL foot/metatarsal Skin Exam: warm/dry Neurologic: abnormal gait, awake, more responsive responsive, Musculoskeletal: atrophy BLE General Appearance: no acute distress HEENT: mucous membranes moist, supple, no JVD Respiratory: lungs clear Cardiovascular: normal rate, regular rhythm Abdomen: normal bowel sounds, soft, non tender, non distended, no mass Extremities: no cyanosis, no clubbing, no edema Neurologic: oriented x 3, responsive Laboratory Tests 11/17/19 23:31: POC Whole Blood Glucose 146H 11/18/19 05:42: White Blood Count 5.4, Red Blood Count 2.68L, Hemoglobin 7.8L, Hematocrit 26.8L , Mean Corpuscular Volume 100H, Mean Corpuscular Hemoglobin 29.1, Mean Corpuscular Hemoglobin Concent 29.1L, Red Cell Distribution Width 15.3H, Platelet Count 278, Mean Platelet Volume 7.9, Neutrophils (%) (Auto) , Lymphocytes (%) (Auto) , Monocytes (%) (Auto) , Eosinophils (%) (Auto) , Basophils (%) (Auto) , Differential Total Cells Counted 100, Neutrophils % ( Manual) 83H, Lymphocytes % (Manual) 7L, Monocytes % (Manual) 8, Eosinophils % ( Manual) 2, Basophils % (Manual) 0, Band Neutrophils 0, Platelet Estimate Adequate, Platelet Morphology Normal, Hypochromasia 2+, Anisocytosis 1+, Macrocytosis 1+, Stomatocytes Rare, Sodium Level 142, Potassium Level 4.7, Chloride Level 105, Carbon Dioxide Level 35H, Anion Gap 2L, Blood Urea Nitrogen 91H, Creatinine 3.7H, Estimat Glomerular Filtration Rate 15.8, Glucose Level 172H, Calcium Level 8.8, Phosphorus Level 4.6, Magnesium Level 2.9H, Total Bilirubin 0.3, Aspartate Amino Transf (AST/SGOT) 17, Alanine Aminotransferase ( ALT/SGPT) 14, Alkaline Phosphatase 127H, Total Protein 5.7L, Albumin 2.2L, Globulin 3.5, Albumin/Globulin Ratio 0.6L 11/18/19 05:54: POC Whole Blood Glucose 163H 11/18/19 12:18: POC Whole Blood Glucose 165H Current Medications Medications (Trade) Dose Ordered Sig/Cammy Route PRN Reason Start Time Stop Time Status Last Admin Dose Admin Acetaminophen (Tylenol) 650 mg Q6H PRN NG Pain 3-5 11/14/19 12:00 12/02/19 00:00 11/18/19 10:03 Amlodipine Besylate (Norvasc) 10 mg DAILY NG 11/15/19 09:00 11/25/19 08:59 11/18/19 08:29 Atorvastatin Calcium (Lipitor) 10 mg BEDTIME NG 11/14/19 21:00 01/21/20 20:59 11/17/19 20:42 Chlorhexidine Gluconate (Yi-Hex 2%) 1 applic DAILY@2000 TOPIC 11/14/19 20:00 01/31/20 19:59 11/17/19 20:41 Clonidine HCl (Catapres TTS-1) 1 patch QWEEK TDERMAL 11/19/19 19:00 02/10/20 18:59 Dextrose (Dextrose 50%) 25 ml Q30M PRN IV Hypoglycemia 11/14/19 10:45 01/20/20 21:44 Dextrose (Dextrose 50%) 50 ml Q30M PRN IV Hypoglycemia 11/14/19 10:45 01/20/20 21:44 Docusate Sodium (Colace) 100 mg THREE TIMES A DAY NG 11/14/19 13:00 12/02/19 17:59 11/18/19 12:19 Epoetin William (Epoetin William(ESRD on dialysis)) 10,000 unit FRI-FRI-FRI SUBQ 11/15/19 21:00 02/01/20 20:59 11/17/19 20:45 Haloperidol (Haldol) 5 mg Q12H PRN NG Agitation 11/14/19 12:00 12/26/19 00:00 Haloperidol Lactate (Haldol) 5 mg Q6H PRN IM Agitation 11/14/19 12:00 12/10/19 00:00 11/18/19 00:28 Hydralazine HCl (Apresoline) 25 mg Q8HR NG 11/17/19 14:00 02/15/20 13:59 11/17/19 14:31 Insulin Aspart (NovoLOG) Q6HR SUBQ 11/14/19 12:00 01/31/20 06:29 11/18/19 12:21 Lactulose (Cephulac) 10 gm BID NG 11/14/19 18:00 12/01/19 08:59 11/18/19 08:29 Lansoprazole (Prevacid) 30 mg DAILY NG 11/15/19 09:00 12/11/19 08:59 11/18/19 08:29 Levothyroxine Sodium (Synthroid) 75 mcg DAILY@0630 NG 11/15/19 06:30 12/04/19 06:29 11/18/19 05:58 Lisinopril (PriniviL) 20 mg Q12HR NG 11/15/19 21:00 12/13/19 20:59 11/17/19 20:42 Metoprolol Tartrate (Lopressor) 50 mg Q12HR NG 11/15/19 09:00 02/13/20 08:59 11/18/19 08:33 Neomycin/ Polymyxin/ Bacitracin (Neomycin/Polymy/ Bacitr Oint) 1 applic DAILY TOPIC 11/18/19 14:00 02/16/20 13:59 Polyethylene Glycol (Miralax) 17 gm BEDTIME NG 11/14/19 21:00 12/01/19 20:59 11/16/19 21:00 Sennosides (Senokot) 8.6 mg HSPRN PRN NG Constipation 11/14/19 12:00 12/14/19 11:59 Assessment/Plan Assessment/Plan ASSESSMENT Acute hypoxemic hypercapnic respiratory failure requiring BiPAP Acute metabolic encephalopathy likely due to hypoglycemia Diabetes mellitus with initial hypoglycemia Probably pneumonia , s/p Rx Aspiration risk Dysphagia , s/p PEG , pulled out Acute kidney injury on chronic kidney disease, requiring start of HD 10/30 Severe anemia requiring blood transfusion Metabolic acidosis Electrolyte imbalance :hyponatremia, hyperkalemia HTN with HTN urgency Hematuria 2 to pt pulled off his Lyles catheter Possibly DAYANA PLAN OF CARE [facility] floor BiPAP at HS and prn currently on O2 2 L via NC titrate O2, pulm toilet patient likely has DAYANA. recommend sleep study as OP CXR 11/02 -> Stable slightly increased bilateral pleural effusions. Otherwise little twisting frame changer 3 days 10/21 and 10/24 rapid COVID NGT, abx as per ID recs -> Ceftriaxone , completed 10/30 ; s/p Vanco , completed Rx for PNA 7 days, remains afebrile no leucocytosis BCX 10/21 NGTD UCX NGT SCX if able Venous Duplex BLE 10/25 -> NGT CT head revealed bilateral mastoid disease; a new finding ID recommended ENT eval- pending- per primary team remains afebrile, asymptomatic on HD- started 10/30 renal US ->Mildly atrophic kidneys. No hydronephrosis or nephrolithiasis. monitor volumes, renal parameters, lytes, correct as needed fup with nephro recs s/p placement of permanent HD catheter R chest 11/07 s/p removal of temporary HD catheter by surgeon ECHO with pEF 55-60% rate control with BB, now added, HR stable on chronic a/c , was on hold for PEG, resume Eliquis swallow eval with aspiration risk diet texture as per ST recs with strict asp precautions and assistance with meals now NGT repeat BSSE 11/04 -> failed, recommended nonoral feeding started on NGT feeding strict aspiration precautions s/p PEG 11/08 asp precautions, GT site care, monitor tolerance of TF now pulled out GT , needs replacement failed swallow eval 11/14 s/[ PEG 11/16, toelrates GT feeding abd binder, AMS 10/[address] head negative, off sedatives ammonia WNL NGT inserted for meds as per nephro recs ( prior to G tube) NEED NEURO EVAL-per primary AMS improved to baseline psych follows HgA1c -6.1 hold oral anti-glycemic SSI prn sensitive initial AMS was most likely due to episode of hypoglycemia CT head NGT for acute ICP -done x 2 BP management with CCB BB and Hydralazine prn for BP spikes monitor HH with goal to keep Hgb above 7 stool OB anemia w/up noted , heme on board s/p 1 dose of Venofer on EPO hematuria resolved, Hgb at baseline GI prophayxlis supportive care WILL NEED TRILOGY VENT TO BE ARRANGED ON DISCHARGE ( pt needs BIPAP at HS and prn ) declined BiPAP prior for few nights, but was compliant prior , need reenforcement to use BiPAP at HS case management aware, work in progress case discussed and evaluated by supervising physician Leoncio Galan MD 11/18/191: Subjective Allergies: Coded Allergies: PENICILLINS (Verified Allergy, Unknown, 10/25/19) tolerated Ceftriaxone Assessment/Plan Assessment/Plan Patient seen and examined with A AND P TECHNICIAN and I agree with the above assessment and plan. Reema Hanna NP Nov 18, 2019 14:20 Leoncio Galan MD Nov 18, 2019 21:11
--- NOTE | 2019-11-18 14:24 | Nephrology Progress Note ---
Assessment/Plan Problem List: (1) Renal failure (ARF), acute on chronic (2) Metabolic acidosis (3) Electrolyte imbalance Assessment: Hyponatremia and hyperkalemia (4) Anemia (5) CHF (congestive heart failure) Assessment 79-year-old male is admitted for hypoglycemia Patient has renal failure which appears to be acute on chronic Hyperkalemia Hyponatremia CHF, pleural effusion, pneumonia Anemia Metabolic acidosis Hypothyroidism Plan November 17: Patient lethargic. Creatinine rising. We will attempt dialysis tomorrow. Labs and medications reviewed. November 16: Labs reviewed. Serum creatinine is slightly higher. Will adjust blood pressure medication. We will consider dialysis if further worsening of renal parameters ensued. November 15: Lab reviewed. Serum creatinine creeping up. We will continue to monitor renal parameters. Further rise in serum creatinine will again require dialysis. November 14: Lab reviewed. Serum creatinine danial lethargic. Is a NG tube. Doubt stone pass speech therapy for oral intake. We will continue to monitor renal parameters. Review mind altering medication and adjust as possible. Continue per consultants. November 13: Labs reviewed. Serum creatinine is leveling off. No dialysis needed at this time. Patient has NG tube. Due for swallowing study. We will continue to monitor renal parameters. He may not need any further dialysis treatment as the acute renal failure appears to have been resolved. Will adjust blood pressure medication. Continue per orders. November 12: Lab works are reviewed. Renal parameters stable. Dialysis as needed. Medication list reviewed. November 11: Patient last dialyzed November 09. Patient pulled out the GT tube. Slight bleeding from the site observed. GI to reinsert. Zestril added for BP control. Next hemodialysis tomorrow. November 10: Patient was dialyzed yesterday. Labs reviewed. Stable from renal standpoint of view. November 09: Patient due for dialysis today due to incomplete dialysis yesterday as a result of catheter malfunction. The femoral catheter was already removed this morning. Labs reviewed. Continue current management. November 08: Dialysis attempted through the permacath which was put in yesterday by IR. Due to high catheter pressure , dialysis was held and PTAse administered. Dialysis will be tried again tomorrow. Will check labs tomorrow. November 07: Patient due for tunneled catheter insertion today. Will order dialysis tomorrow. Continue to monitor renal parameters. Labs and medications reviewed. November 06: Patient due for tunnel catheter insertion November 07. Serum creatinine is rising. Labs reviewed. Continue per consultants. November 05: Last dialysis November 03. Eliquis on hold. Due tunneled catheter insertion on November 07. Labs are reviewed. Continue current management. November 04: Dialyzed yesterday. Due for insertion of tunneled catheter today. May need to hold Eliquis and reschedule catheter insertion on Friday. Will monitor renal parameters in the meantime. November 03: Dialyzed this morning. Stable from renal standpoint of view. Due for insertion of tunneled catheter tomorrow. November 02: Dialyzed yesterday. Will DC IV fluid. Dialysis tomorrow. Potassium supplement given. Per orders. November 01: Patient currently being dialyzed. Tolerating well. Labs will be reviewed. Continue per consultants. October 31: Patient was dialyzed yesterday. Clinically doing better. We will continue to monitor renal parameters. Dialysis as needed. October 30: Serum creatinine rising. Patient due to have a temporary dialysis catheter and due for dialysis today. Will continue to follow-up renal parameters. Patient remains full code. October 29: Serum creatinine rising. Serum creatinine 4.5 today. Calculated creatinine clearance is 12. Kidney ultrasound ordered yesterday results were reviewed. Patient appears to have acute renal failure due to underlying sepsis and nephrotoxic medications. Patient requires dialysis treatment. Ordered to obtain consent from the responsible green party. Will communicate with PMD and or he is coverage. October 28: Serum creatinine higher to 4.2 today. Blood pressure appears more stable. In view of worsening renal failure, will order stat kidney ultrasound and urine studies. Continue to monitor renal parameters. Patient is full code. Worsening renal parameters may lead to hemodialysis treatment. October 27: Patient pulled out the Lyles catheter. Serum creatinine went up to 3.8. Blood pressure somewhat low. Heart rate in 50s. Will discontinue Coreg. We will continue to monitor renal parameters. October 26: Serum creatinine lower again today. Will abort the dialysis plan. Continue per consultants. Continue to monitor renal parameters. Medication list reviewed. October 25: Clinically improving. Serum creatinine lower. Urine output increased. No dialysis planned at this time. Continue per consultants. October 24: Patient's respiratory status somewhat improved. Serum creatinine down to 3.9. Urinary output somewhat increased. Will hold placement of dialysis catheter at this time. Blood pressure medication adjusted. Continue to monitor renal parameters. Per orders. October 23: Patient remains on BiPAP. More Kayexalate ordered. Will consider hemodialysis to correct fluid overload and hyperkalemia and acidosis. Will discuss with PMD. Meanwhile IV Synthroid started. Discussed with RN Timothy Patient already transfused 1 unit for severe anemia previously Will initiate Epogen 10,000 units subcutaneously 1 dose of IV iron Venofer 200 g IV Kayexalate for hyperkalemia as needed 2D echocardiogram ordered, ejection fraction is reported normal Kidney ultrasound ordered: Kidneys: Right kidney measures 9.1 cm in length. No hydronephrosis or stone. Left kidney not visualized due to patient's body habitus. Avoid nephrotoxic's Monitor renal parameters Will hold insulin and hypoglycemic agents until hypoglycemia is reasonably resolved Subjective ROS Limited/Unobtainable: No Constitutional: Reports: malaise, weakness Objective Objective Last 24 Hour Vital Signs Date Time Temp Pulse Resp B/P (MAP) Pulse Ox O2 Delivery O2 Flow Rate FiO2 11/18/19 13:50 100/46 11/18/19 13:24 98 Nasal Cannula 2.0 28 11/18/19 12:00 97.9 72 19 126/52 (76) 97 11/18/19 08:33 121/49 11/18/19 08:33 64 121/49 11/18/19 08:29 64 121/49 11/18/19 08:00 98.1 64 19 121/49 (73) 98 11/18/19 06:41 Nasal Cannula 2.0 11/18/19 05:59 121/47 11/18/19 04:00 98.3 65 19 121/47 (71) 98 11/18/19 02:26 70 16 97 11/18/19 00:00 97.7 62 19 119/57 (77) 100 11/17/19 21:10 126/66 11/17/19 21:00 Nasal Cannula 2.0 11/17/19 20:42 126/66 11/17/19 20:41 82 126/66 11/17/19 20:00 97.7 64 20 126/66 (86) 99 11/17/19 19:41 97 Nasal Cannula 2.0 28 11/17/19 16:00 97.2 59 19 103/60 (74) 100 11/17/19 14:31 120/55 Intake and Output 11/17/19 11/18/19 19:00 07:00 Intake Total 420 ml 480 ml Output Total 425 ml Balance -5 ml 480 ml Free Water 60 ml IV Total 400 ml Tube Feeding 20 ml 420 ml Output Urine Total 425 ml # Bowel Movements 1 2 Laboratory Tests 11/17/19 23:31: POC Whole Blood Glucose 146H 11/18/19 05:42: White Blood Count 5.4, Red Blood Count 2.68L, Hemoglobin 7.8L, Hematocrit 26.8L , Mean Corpuscular Volume 100H, Mean Corpuscular Hemoglobin 29.1, Mean Corpuscular Hemoglobin Concent 29.1L, Red Cell Distribution Width 15.3H, Platelet Count 278, Mean Platelet Volume 7.9, Neutrophils (%) (Auto) , Lymphocytes (%) (Auto) , Monocytes (%) (Auto) , Eosinophils (%) (Auto) , Basophils (%) (Auto) , Differential Total Cells Counted 100, Neutrophils % ( Manual) 83H, Lymphocytes % (Manual) 7L, Monocytes % (Manual) 8, Eosinophils % ( Manual) 2, Basophils % (Manual) 0, Band Neutrophils 0, Platelet Estimate Adequate, Platelet Morphology Normal, Hypochromasia 2+, Anisocytosis 1+, Macrocytosis 1+, Stomatocytes Rare, Sodium Level 142, Potassium Level 4.7, Chloride Level 105, Carbon Dioxide Level 35H, Anion Gap 2L, Blood Urea Nitrogen 91H, Creatinine 3.7H, Estimat Glomerular Filtration Rate 15.8, Glucose Level 172H, Calcium Level 8.8, Phosphorus Level 4.6, Magnesium Level 2.9H, Total Bilirubin 0.3, Aspartate Amino Transf (AST/SGOT) 17, Alanine Aminotransferase ( ALT/SGPT) 14, Alkaline Phosphatase 127H, Total Protein 5.7L, Albumin 2.2L, Globulin 3.5, Albumin/Globulin Ratio 0.6L 11/18/19 05:54: POC Whole Blood Glucose 163H 11/18/19 12:18: POC Whole Blood Glucose 165H Height (Feet): 5 Height (Inches): 5.00 Weight (Pounds): 196 General Appearance: no apparent distress, lethargic Cardiovascular: normal rate Respiratory/Chest: decreased breath sounds Abdomen: soft Objective No change Naveed Vanegas MD Nov 18, 2019 14:24
[2019-11-18 16:00] VITALS: BP 116/50
[2019-11-18] MEDS: Neosporin Oint 15gm TOPIC SCH (17:37)
--- NOTE | 2019-11-18 19:32 | General Progress Note ---
Assessment/Plan Status: stable, unchanged Subjective Constitutional: Reports: no symptoms HEENT: Reports: no symptoms Respiratory: Reports: no symptoms, cough Gastrointestinal/Abdominal: Reports: no symptoms Genitourinary: Reports: no symptoms Neurologic/Psychiatric: Reports: no symptoms Endocrine: Reports: no symptoms Hematologic/Lymphatic: Reports: no symptoms Allergies: Coded Allergies: PENICILLINS (Verified Allergy, Unknown, 10/25/19) tolerated Ceftriaxone Objective Last 24 Hour Vital Signs Date Time Temp Pulse Resp B/P (MAP) Pulse Ox O2 Delivery O2 Flow Rate FiO2 11/18/19 16:00 98.6 63 18 116/50 (72) 99 11/18/19 13:50 100/46 11/18/19 13:24 98 Nasal Cannula 2.0 28 11/18/19 12:00 97.9 72 19 126/52 (76) 97 11/18/19 08:33 121/49 11/18/19 08:33 64 121/49 11/18/19 08:29 64 121/49 11/18/19 08:00 98.1 64 19 121/49 (73) 98 11/18/19 06:41 Nasal Cannula 2.0 11/18/19 05:59 121/47 11/18/19 04:00 98.3 65 19 121/47 (71) 98 11/18/19 02:26 70 16 97 11/18/19 00:00 97.7 62 19 119/57 (77) 100 11/17/19 21:10 126/66 11/17/19 21:00 Nasal Cannula 2.0 11/17/19 20:42 126/66 11/17/19 20:41 82 126/66 11/17/19 20:00 97.7 64 20 126/66 (86) 99 11/17/19 19:41 97 Nasal Cannula 2.0 28 Intake and Output 11/17/19 11/18/19 18:59 06:59 Intake Total 400 ml 500 ml Output Total 425 ml Balance -25 ml 500 ml Free Water 60 ml IV Total 400 ml Tube Feeding 440 ml Output Urine Total 425 ml # Bowel Movements 1 2 Laboratory Tests 11/17/19 23:31: POC Whole Blood Glucose 146H 11/18/19 05:42: White Blood Count 5.4, Red Blood Count 2.68L, Hemoglobin 7.8L, Hematocrit 26.8L , Mean Corpuscular Volume 100H, Mean Corpuscular Hemoglobin 29.1, Mean Corpuscular Hemoglobin Concent 29.1L, Red Cell Distribution Width 15.3H, Platelet Count 278, Mean Platelet Volume 7.9, Neutrophils (%) (Auto) , Lymphocytes (%) (Auto) , Monocytes (%) (Auto) , Eosinophils (%) (Auto) , Basophils (%) (Auto) , Differential Total Cells Counted 100, Neutrophils % ( Manual) 83H, Lymphocytes % (Manual) 7L, Monocytes % (Manual) 8, Eosinophils % ( Manual) 2, Basophils % (Manual) 0, Band Neutrophils 0, Platelet Estimate Adequate, Platelet Morphology Normal, Hypochromasia 2+, Anisocytosis 1+, Macrocytosis 1+, Stomatocytes Rare, Sodium Level 142, Potassium Level 4.7, Chloride Level 105, Carbon Dioxide Level 35H, Anion Gap 2L, Blood Urea Nitrogen 91H, Creatinine 3.7H, Estimat Glomerular Filtration Rate 15.8, Glucose Level 172H, Calcium Level 8.8, Phosphorus Level 4.6, Magnesium Level 2.9H, Total Bilirubin 0.3, Aspartate Amino Transf (AST/SGOT) 17, Alanine Aminotransferase ( ALT/SGPT) 14, Alkaline Phosphatase 127H, Total Protein 5.7L, Albumin 2.2L, Globulin 3.5, Albumin/Globulin Ratio 0.6L 11/18/19 05:54: POC Whole Blood Glucose 163H 11/18/19 12:18: POC Whole Blood Glucose 165H 11/18/19 17:39: POC Whole Blood Glucose 168H Height (Feet): 5 Height (Inches): 5.00 Weight (Pounds): 196 General Appearance: no apparent distress, alert EENT: PERRL/EOMI Neck: non-tender, supple Cardiovascular: normal rate, regular rhythm Respiratory/Chest: decreased breath sounds Abdomen: normal bowel sounds, non tender, soft, no mass Extremities: non-tender, no calf tenderness Neurologic: alert, oriented x 3, responsive Ayush Chang MD Nov 18, 2019 19:32
[2019-11-18 20:00] VITALS: BP 112/52
[2019-11-18] MEDS: Dyna-Hex 2% Top Sol 2oz TOPIC SCH ×2 (20:00→22:20)
[2019-11-18] MEDS: Miralax 17gm pkt NG SCH (21:19)
--- NOTE | 2019-11-18 22:31 | Psych Consult Progress Note ---
Psychiatry Progress Note Psychiatry Progress Note Subjective the pts mental condition is unchanged confused dec agitations disoriented Medications Current Medications Medications (Trade) Dose Ordered Sig/Cammy Route PRN Reason Start Time Stop Time Status Last Admin Dose Admin Acetaminophen (Tylenol) 650 mg Q6H PRN NG Pain 3-5 11/14/19 12:00 12/02/19 00:00 11/18/19 10:03 Amlodipine Besylate (Norvasc) 10 mg DAILY NG 11/15/19 09:00 11/25/19 08:59 11/18/19 08:29 Atorvastatin Calcium (Lipitor) 10 mg BEDTIME NG 11/14/19 21:00 01/21/20 20:59 11/18/19 21:26 Chlorhexidine Gluconate (Yi-Hex 2%) 1 applic DAILY@1999 TOPIC 11/14/19 20:00 01/31/20 19:59 11/18/19 22:20 Clonidine HCl (Catapres TTS-1) 1 patch QWEEK TDERMAL 11/19/19 19:00 02/10/20 18:59 Dextrose (Dextrose 50%) 25 ml Q30M PRN IV Hypoglycemia 11/14/19 10:45 01/20/20 21:44 Dextrose (Dextrose 50%) 50 ml Q30M PRN IV Hypoglycemia 11/14/19 10:45 01/20/20 21:44 Docusate Sodium (Colace) 100 mg THREE TIMES A DAY NG 11/14/19 13:00 12/02/19 17:59 11/18/19 12:19 Epoetin William (Epoetin William(ESRD on dialysis)) 10,000 unit SUBQ 11/15/19 21:00 02/01/20 20:59 11/17/19 20:45 Haloperidol (Haldol) 5 mg Q12H PRN NG Agitation 11/14/19 12:00 12/26/19 00:00 Haloperidol Lactate (Haldol) 5 mg Q6H PRN IM Agitation 11/14/19 12:00 12/10/19 00:00 11/18/19 00:28 Hydralazine HCl (Apresoline) 25 mg Q8HR NG 11/17/19 14:00 02/15/20 13:59 11/17/19 14:31 Insulin Aspart (NovoLOG) Q6HR SUBQ 11/14/19 12:00 01/31/20 06:29 11/18/19 17:40 Lactulose (Cephulac) 10 gm BID NG 11/14/19 18:00 12/01/19 08:59 11/18/19 08:29 Lansoprazole (Prevacid) 30 mg DAILY NG 11/15/19 09:00 12/11/19 08:59 11/18/19 08:29 Levothyroxine Sodium (Synthroid) 75 mcg DAILY@0630 NG 11/15/19 06:30 12/04/19 06:29 11/18/19 05:58 Lisinopril (PriniviL) 20 mg Q12HR NG 11/15/19 21:00 12/13/19 20:59 11/17/19 20:42 Metoprolol Tartrate (Lopressor) 50 mg Q12HR NG 11/15/19 09:00 02/13/20 08:59 11/18/19 08:33 Neomycin/ Polymyxin/ Bacitracin (Neomycin/Polymy/ Bacitr Oint) 1 applic DAILY TOPIC 11/18/19 14:00 02/16/20 13:59 11/18/19 17:37 Polyethylene Glycol (Miralax) 17 gm BEDTIME NG 11/14/19 21:00 12/01/19 20:59 11/18/19 21:19 Sennosides (Senokot) 8.6 mg HSPRN PRN NG Constipation 11/14/19 12:00 12/14/19 11:59 Neurological/Psychiatric: Reports: no symptoms Allergies: Coded Allergies: PENICILLINS (Verified Allergy, Unknown, 10/25/19) tolerated Ceftriaxone Objective Data Height (Feet): 5 Height (Inches): 5.00 Weight (Pounds): 196 General Appearance: WD/WN, no apparent distress, alert Appearance: no abnormalities noted Behavior Mannerisms: good eye contact Mental Status Exam - Affect: blunted Mental Status Exam - Mood: anxious, agitated Mental Status Exam - Thought P: tangential, confusion Mental Status Exam - Thought C: delusions (specify) Mental Status Exam - Suicidal: not present Additional Comments: awake, confused, and disoriented. Mood is agitated. Affect is flat. Thought process, there is a paucity of thought content. Thought content, no suicidal or homicidal ideation. Cognition is impaired. Insight and judgment impaired. Assessment/Plan Status: stable, unchanged Dada Finch MD Nov 18, 2019 22:31
[2019-11-19] VITALS: BP 153/53
[2019-11-19] MEDS: NovoLOG Insulin Flexpen SUBQ SCH ×4 (00:17→18:16)
[2019-11-19 04:00] VITALS: BP 133/56
[2019-11-19] MEDS: HydrALAZINE 50mg tab NG SCH ×3 (07:34→23:07)
[2019-11-19] MEDS: Lisinopril 20mg tab NG SCH ×2 (08:51→21:00)
[2019-11-19] MEDS: Lactulose 10gm/15ml UDC NG SCH ×2 (08:51→17:20)
[2019-11-19] MEDS: Metoprolol Tartrate 50mg tab NG SCH ×2 (08:51→21:12)
[2019-11-19] MEDS: Docusate 100mg/10ml Liq NG SCH ×3 (08:51→17:20)
[2019-11-19] MEDS: Neosporin Oint 15gm TOPIC SCH (08:52)
--- NOTE | 2019-11-19 08:54 | General Progress Note ---
Assessment/Plan Problem List: (1) Hypertension ICD Codes: I10 - Essential (primary) hypertension SNOMED: 70497241 (2) Diabetes mellitus ICD Codes: E11.9 - Type 2 diabetes mellitus without complications SNOMED: 52489262 (3) Anemia ICD Codes: D64.9 - Anemia, unspecified SNOMED: 049547109 (4) Cholelithiasis ICD Codes: K80.20 - Calculus of gallbladder without cholecystitis without obstruction SNOMED: 297788439 (5) CHF (congestive heart failure) ICD Codes: I50.9 - Heart failure, unspecified SNOMED: 60591144 Status: stable, unchanged Assessment/Plan: s/p PEG GTF tolerated HD per nephrology dc planning Subjective ROS Limited/Unobtainable: No Allergies: Coded Allergies: PENICILLINS (Verified Allergy, Unknown, 10/25/19) tolerated Ceftriaxone Objective Last 24 Hour Vital Signs Date Time Temp Pulse Resp B/P (MAP) Pulse Ox O2 Delivery O2 Flow Rate FiO2 11/19/19 08:52 79 135/89 11/19/19 08:51 135/89 11/19/19 08:51 79 135/89 11/19/19 07:34 150/63 11/19/19 04:00 97.7 75 20 133/56 (81) 98 11/19/19 00:00 98.2 70 20 153/53 (86) 94 11/18/19 22:00 110/50 11/18/19 21:00 Nasal Cannula 2.0 11/18/19 21:00 112/52 11/18/19 21:00 67 112/52 11/18/19 20:00 97.0 66 18 112/52 (72) 100 11/18/19 19:33 98 Nasal Cannula 2.0 28 11/18/19 16:00 98.6 63 18 116/50 (72) 99 11/18/19 13:50 100/46 11/18/19 13:24 98 Nasal Cannula 2.0 28 11/18/19 12:00 97.9 72 19 126/52 (76) 97 Intake and Output 11/18/19 11/19/19 19:00 07:00 Intake Total 800 ml 600 ml Output Total 2 ml Balance 800 ml 598 ml Free Water 280 ml 160 ml Tube Feeding 520 ml 440 ml Output Urine Total 2 ml # Bowel Movements 2 Laboratory Tests 11/18/19 12:18: POC Whole Blood Glucose 165H 11/18/19 17:39: POC Whole Blood Glucose 168H Height (Feet): 5 Height (Inches): 5.00 Weight (Pounds): 191 General Appearance: alert EENT: normal ENT inspection Neck: supple Cardiovascular: normal rate Respiratory/Chest: decreased breath sounds Abdomen: normal bowel sounds, non tender, soft Extremities: non-tender Lawrence Humphreys MD Nov 19, 2019 08:54
[2019-11-19 09:00] VITALS: BP 143/59
--- NOTE | 2019-11-19 10:37 | Pulmonology Progress Note ---
Reema Hanna AGENCY OPERATOR 11/19/19 1037: Subjective ROS Limited/Unobtainable: Yes Allergies: Coded Allergies: PENICILLINS (Verified Allergy, Unknown, 10/25/19) tolerated Ceftriaxone Subjective on 2L O2 via NC BiPAP at HS s/p new PEG 11/16. tolerates GTF Objective Last 24 Hour Vital Signs Date Time Temp Pulse Resp B/P (MAP) Pulse Ox O2 Delivery O2 Flow Rate FiO2 11/19/19 09:00 97.9 78 19 143/59 (87) 97 11/19/19 09:00 Nasal Cannula 2.0 11/19/19 08:52 79 135/89 11/19/19 08:51 135/89 11/19/19 08:51 79 135/89 11/19/19 08:01 97 Nasal Cannula 2.0 11/19/19 07:34 150/63 11/19/19 04:00 97.7 75 20 133/56 (81) 98 11/19/19 00:00 98.2 70 20 153/53 (86) 94 11/18/19 22:00 110/50 11/18/19 21:00 Nasal Cannula 2.0 11/18/19 21:00 112/52 11/18/19 21:00 67 112/52 11/18/19 20:00 97.0 66 18 112/52 (72) 100 11/18/19 19:33 98 Nasal Cannula 2.0 11/18/19 16:00 98.6 63 18 116/50 (72) 99 11/18/19 13:50 100/46 11/18/19 13:24 98 Nasal Cannula 2.0 11/18/19 12:00 97.9 72 19 126/52 (76) 97 Intake and Output 11/18/19 11/19/19 19:00 07:00 Intake Total 800 ml 600 ml Output Total 2 ml Balance 800 ml 598 ml Free Water 280 ml 160 ml Tube Feeding 520 ml 440 ml Output Urine Total 2 ml # Bowel Movements 2 Objective General Appearance: no apparent distress, [place] speaking awake, more alert and responsive male, Lines, tubes and drains: R chest tunneled HD catheter , R femoral temporal HD catheter HEENT: normocephalic, atraumatic, anicteric, mucous membranes moist, O2 2 L via NC, Respiratory/Chest: few scattered crackles, no exp wheezing, Cardiovascular/Chest: normal rate, SR Abdomen: normal bowel sounds, non tender, soft , abd binder, GT with TF Extremities: partially amputated BL foot/metatarsal Skin Exam: warm/dry Neurologic: abnormal gait, awake, more responsive responsive, Musculoskeletal: atrophy BLE Microbiology Date/Time Source Procedure Growth Status 11/18/19 15:30 Nasopharynx SARS-CoV-2 RdRp Gene Assay - Final Complete Laboratory Tests 11/18/19 12:18: POC Whole Blood Glucose 165H 11/18/19 17:39: POC Whole Blood Glucose 168H Current Medications Medications (Trade) Dose Ordered Sig/Cammy Route PRN Reason Start Time Stop Time Status Last Admin Dose Admin Acetaminophen (Tylenol) 650 mg Q6H PRN NG Pain 3-5 11/14/19 12:00 12/02/19 00:00 11/18/19 10:03 Amlodipine Besylate (Norvasc) 10 mg DAILY NG 11/15/19 09:00 11/25/19 08:59 11/18/19 08:29 Atorvastatin Calcium (Lipitor) 10 mg BEDTIME NG 11/14/19 21:00 01/21/20 20:59 11/18/19 21:26 Chlorhexidine Gluconate (Yi-Hex 2%) 1 applic DAILY@2000 TOPIC 11/14/19 20:00 01/31/20 19:59 11/18/19 22:20 Clonidine HCl (Catapres TTS-1) 1 patch QWEEK TDERMAL 11/19/19 19:00 02/10/20 18:59 Dextrose (Dextrose 50%) 25 ml Q30M PRN IV Hypoglycemia 11/14/19 10:45 01/20/20 21:44 Dextrose (Dextrose 50%) 50 ml Q30M PRN IV Hypoglycemia 11/14/19 10:45 01/20/20 21:44 Docusate Sodium (Colace) 100 mg THREE TIMES A DAY NG 11/14/19 13:00 12/02/19 17:59 11/19/19 08:51 Epoetin William (Epoetin William(ESRD on dialysis)) 10,000 unit FRI-WED-FRI SUBQ 11/15/19 21:00 02/01/20 20:59 11/17/19 20:45 Haloperidol (Haldol) 5 mg Q12H PRN NG Agitation 11/14/19 12:00 12/26/19 00:00 Haloperidol Lactate (Haldol) 5 mg Q6H PRN IM Agitation 11/14/19 12:00 12/10/19 00:00 11/18/19 00:28 Hydralazine HCl (Apresoline) 25 mg Q8HR NG 11/17/19 14:00 02/15/20 13:59 11/19/19 07:34 Insulin Aspart (NovoLOG) Q6HR SUBQ 11/14/19 12:00 01/31/20 06:29 11/19/19 07:29 Lactulose (Cephulac) 10 gm BID NG 11/14/19 18:00 12/01/19 08:59 11/19/19 08:51 Lansoprazole (Prevacid) 30 mg DAILY NG 11/15/19 09:00 12/11/19 08:59 11/19/19 08:51 Levothyroxine Sodium (Synthroid) 75 mcg DAILY@0630 NG 11/15/19 06:30 12/04/19 06:29 11/19/19 07:29 Lisinopril (PriniviL) 20 mg Q12HR NG 11/15/19 21:00 12/13/19 20:59 11/17/19 20:42 Metoprolol Tartrate (Lopressor) 50 mg Q12HR NG 11/15/19 09:00 02/13/20 08:59 11/18/19 08:33 Neomycin/ Polymyxin/ Bacitracin (Neomycin/Polymy/ Bacitr Oint) 1 applic DAILY TOPIC 11/18/19 14:00 02/16/20 13:59 11/19/19 08:52 Polyethylene Glycol (Miralax) 17 gm BEDTIME NG 11/14/19 21:00 12/01/19 20:59 11/18/19 21:19 Sennosides (Senokot) 8.6 mg HSPRN PRN NG Constipation 11/14/19 12:00 12/14/19 11:59 Assessment/Plan Assessment/Plan ASSESSMENT Acute hypoxemic hypercapnic respiratory failure requiring BiPAP Acute metabolic encephalopathy likely due to hypoglycemia Diabetes mellitus with initial hypoglycemia Probably pneumonia , s/p Rx Aspiration risk Dysphagia , s/p PEG , pulled out, s/p replacement of PEG 11/16 Acute kidney injury on chronic kidney disease, requiring start of HD 10/30 Severe anemia requiring blood transfusion Metabolic acidosis Electrolyte imbalance :hyponatremia, hyperkalemia HTN with HTN urgency Hematuria 2 to pt pulled off his Lyles catheter Possibly DAYANA PLAN OF CARE [facility] floor BiPAP at HS and prn currently on O2 2 L via NC titrate O2, pulm toilet patient likely has DAYANA. recommend sleep study as OP CXR 11/02 -> Stable slightly increased bilateral pleural effusions. 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 No hydronephrosis or nephrolithiasis. monitor volumes, renal parameters, lytes, correct as needed fup with nephro recs s/p placement of permanent HD catheter R chest 11/07 s/p removal of temporary HD catheter by surgeon ECHO with pEF 55-60% rate control with BB, now added, HR stable on chronic a/c , was on hold for PEG, resume Eliquis swallow eval with aspiration risk diet texture as per ST recs with strict asp precautions and assistance with meals now NGT repeat BSSE 11/04 -> failed, recommended nonoral feeding started on NGT feeding strict aspiration precautions s/p PEG 11/08 asp precautions, GT site care, monitor tolerance of TF now pulled out GT , needs replacement failed swallow eval 11/14 s/[ PEG 11/16, tolerates GT feeding abd binder, AMS 10/[address] head negative, off sedatives ammonia WNL NGT inserted for meds as per nephro recs ( prior to G tube) NEED NEURO EVAL-per primary AMS improved to baseline psych follows HgA1c -6.1 hold oral anti-glycemic SSI prn sensitive initial AMS was most likely due to episode of hypoglycemia CT head NGT for acute ICP -done x 2 BP management with CCB BB and Hydralazine prn for BP spikes monitor HH with goal to keep Hgb above 7 stool OB anemia w/up noted , heme on board s/p 1 dose of Venofer on EPO hematuria resolved, Hgb at baseline GI prophayxlis supportive care WILL NEED TRILOGY VENT TO BE ARRANGED ON DISCHARGE ( pt needs BIPAP at HS and prn ) declined BiPAP prior for few nights, but was compliant prior , need reenforcement to use BiPAP at HS placement was found and secured ok for dc form pulmonary standpoint BiPAP at HS and prn -12/5 FiO2 30% case discussed and evaluated by supervising physician Leoncio Galan MD 11/19/19 1426: Subjective Allergies: Coded Allergies: PENICILLINS (Verified Allergy, Unknown, 10/25/19) tolerated Ceftriaxone Assessment/Plan Assessment/Plan Patient seen and examined with AGENCY OPERATOR. Agree with above A&P as it reflects our joint deliberations. Reema Hanna NP Nov 19, 2019 10:37 Leoncio Galan MD Nov 19, 2019 14:26
[2019-11-19 12:00] VITALS: BP 131/59
--- NOTE | 2019-11-19 12:14 | Nephrology Progress Note ---
Assessment/Plan Problem List: (1) Renal failure (ARF), acute on chronic (2) Metabolic acidosis (3) Electrolyte imbalance Assessment: Hyponatremia and hyperkalemia (4) Anemia (5) CHF (congestive heart failure) Assessment 79-year-old male is admitted for hypoglycemia Patient has renal failure which appears to be acute on chronic Hyperkalemia Hyponatremia CHF, pleural effusion, pneumonia Anemia Metabolic acidosis Hypothyroidism Plan November 18: No labs done today. Due for dialysis today. Check labs tomorrow. November 17: Patient lethargic. Creatinine rising. We will attempt dialysis tomorrow. Labs and medications reviewed. November 16: Labs reviewed. Serum creatinine is slightly higher. Will adjust blood pressure medication. We will consider dialysis if further worsening of renal parameters ensued. November 15: Lab reviewed. Serum creatinine creeping up. We will continue to monitor renal parameters. Further rise in serum creatinine will again require dialysis. November 14: Lab reviewed. Serum creatinine danial lethargic. Is a NG tube. Doubt stone pass speech therapy for oral intake. We will continue to monitor renal parameters. Review mind altering medication and adjust as possible. Continue per consultants. November 13: Labs reviewed. Serum creatinine is leveling off. No dialysis needed at this time. Patient has NG tube. Due for swallowing study. We will continue to monitor renal parameters. He may not need any further dialysis treatment as the acute renal failure appears to have been resolved. Will adjust blood pressure medication. Continue per orders. November 12: Lab works are reviewed. Renal parameters stable. Dialysis as needed. Medication list reviewed. November 11: Patient last dialyzed November 09. Patient pulled out the GT tube. Slight bleeding from the site observed. GI to reinsert. Zestril added for BP control. Next hemodialysis tomorrow. November 10: Patient was dialyzed yesterday. Labs reviewed. Stable from renal standpoint of view. November 09: Patient due for dialysis today due to incomplete dialysis yesterday as a result of catheter malfunction. The femoral catheter was already removed this morning. Labs reviewed. Continue current management. November 08: Dialysis attempted through the permacath which was put in yesterday by IR. Due to high catheter pressure , dialysis was held and PTAse administered. Dialysis will be tried again tomorrow. Will check labs tomorrow. November 07: Patient due for tunneled catheter insertion today. Will order dialysis tomorrow. Continue to monitor renal parameters. Labs and medications reviewed. November 06: Patient due for tunnel catheter insertion November 07. Serum creatinine is rising. Labs reviewed. Continue per consultants. November 05: Last dialysis November 03. Eliquis on hold. Due tunneled catheter insertion on November 07. Labs are reviewed. Continue current management. November 04: Dialyzed yesterday. Due for insertion of tunneled catheter today. May need to hold Eliquis and reschedule catheter insertion on Friday. Will monitor renal parameters in the meantime. November 03: Dialyzed this morning. Stable from renal standpoint of view. Due for insertion of tunneled catheter tomorrow. November 02: Dialyzed yesterday. Will DC IV fluid. Dialysis tomorrow. Potassium supplement given. Per orders. November 01: Patient currently being dialyzed. Tolerating well. Labs will be reviewed. Continue per consultants. October 31: Patient was dialyzed yesterday. Clinically doing better. We will continue to monitor renal parameters. Dialysis as needed. October 30: Serum creatinine rising. Patient due to have a temporary dialysis catheter and due for dialysis today. Will continue to follow-up renal parameters. Patient remains full code. October 29: Serum creatinine rising. Serum creatinine 4.5 today. Calculated creatinine clearance is 12. Kidney ultrasound ordered yesterday results were reviewed. Patient appears to have acute renal failure due to underlying sepsis and nephrotoxic medications. Patient requires dialysis treatment. Ordered to obtain consent from the responsible libertarian. Will communicate with PMD and or he is coverage. October 28: Serum creatinine higher to 4.2 today. Blood pressure appears more stable. In view of worsening renal failure, will order stat kidney ultrasound and urine studies. Continue to monitor renal parameters. Patient is full code. Worsening renal parameters may lead to hemodialysis treatment. October 27: Patient pulled out the Lyles catheter. Serum creatinine went up to 3.8. Blood pressure somewhat low. Heart rate in 50s. Will discontinue Coreg. We will continue to monitor renal parameters. October 26: Serum creatinine lower again today. Will abort the dialysis plan. Continue per consultants. Continue to monitor renal parameters. Medication list reviewed. October 25: Clinically improving. Serum creatinine lower. Urine output increased. No dialysis planned at this time. Continue per consultants. October 24: Patient's respiratory status somewhat improved. Serum creatinine down to 3.9. Urinary output somewhat increased. Will hold placement of dialysis catheter at this time. Blood pressure medication adjusted. Continue to monitor renal parameters. Per orders. October 23: Patient remains on BiPAP. More Kayexalate ordered. Will consider hemodialysis to correct fluid overload and hyperkalemia and acidosis. Will discuss with PMD. Meanwhile IV Synthroid started. Discussed with RN Timothy Patient already transfused 1 unit for severe anemia previously Will initiate Epogen 10,000 units subcutaneously 1 dose of IV iron Venofer 200 g IV Kayexalate for hyperkalemia as needed 2D echocardiogram ordered, ejection fraction is reported normal Kidney ultrasound ordered: Kidneys: Right kidney measures 9.1 cm in length. No hydronephrosis or stone. Left kidney not visualized due to patient's body habitus. Avoid nephrotoxic's Monitor renal parameters Will hold insulin and hypoglycemic agents until hypoglycemia is reasonably resolved Subjective ROS Limited/Unobtainable: No Constitutional: Reports: malaise Objective Objective Last 24 Hour Vital Signs Date Time Temp Pulse Resp B/P (MAP) Pulse Ox O2 Delivery O2 Flow Rate FiO2 11/19/19 09:00 97.9 78 19 143/59 (87) 97 11/19/19 09:00 Nasal Cannula 2.0 11/19/19 08:52 79 135/89 11/19/19 08:51 135/89 11/19/19 08:51 79 135/89 11/19/19 08:01 97 Nasal Cannula 2.0 28 11/19/19 07:34 150/63 11/19/19 04:00 97.7 75 20 133/56 (81) 98 11/19/19 00:00 98.2 70 20 153/53 (86) 94 11/18/19 22:00 110/50 11/18/19 21:00 Nasal Cannula 2.0 11/18/19 21:00 112/52 11/18/19 21:00 67 112/52 11/18/19 20:00 97.0 66 18 112/52 (72) 100 11/18/19 19:33 98 Nasal Cannula 2.0 28 11/18/19 16:00 98.6 63 18 116/50 (72) 99 11/18/19 13:50 100/46 11/18/19 13:24 98 Nasal Cannula 2.0 28 Intake and Output 11/18/19 11/19/19 19:00 07:00 Intake Total 800 ml 600 ml Output Total 2 ml Balance 800 ml 598 ml Free Water 280 ml 160 ml Tube Feeding 520 ml 440 ml Output Urine Total 2 ml # Bowel Movements 2 No labs done today Laboratory Tests 11/18/19 12:18: POC Whole Blood Glucose 165H 11/18/19 17:39: POC Whole Blood Glucose 168H Height (Feet): 5 Height (Inches): 5.00 Weight (Pounds): 191 General Appearance: no apparent distress, lethargic Cardiovascular: normal rate Respiratory/Chest: decreased breath sounds Abdomen: soft Objective No change Naveed Vanegas MD Nov 19, 2019 12:14
--- NOTE | 2019-11-19 12:14 | Discharge Summary ---
Discharge Summary Hospital Course Date of Admission Oct 22, 2019 at 17:20 Date of Discharge Admitting Diagnosis AMS/Hypoglycemia JOE Gonzalez is a 79 year old male who was admitted on Oct 22, 2019 at 17: 20 for Altered Mental Status,Hypoglycemia Consultations patient had multipple cosultations that included cardio;ogy pulmonology infectious disease nephrology hematology ond general surgery. Procedures he required the use of bipap machine .bryant cathter permacath . he had upper and lower gi endoscopy and PeG insertion Hospital Course hospital course was marked by severe swepsis that required the use of broad spectrum anti biotics dialysis volume replacement and nutritional support, delivered by ng tube and later by gastrostomy tube Discharge Condition Upon Discharge: stable Discharge Vital Signs Last Vital Signs Date Time Temp Pulse Resp B/P (MAP) Pulse Ox O2 Delivery O2 Flow Rate FiO2 11/19/19 09:00 97.9 78 19 143/59 (87) 97 11/19/19 09:00 Nasal Cannula 2.0 11/19/19 08:01 28 Discharge Disposition Patient was discharged to [facility] where he will be seen 24 hours after discharge Discharge Diagnoses: (1) Chronic renal failure (2) CHF (congestive heart failure) (3) Hypoglycemia (4) Metabolic acidosis (5) Pneumonia (6) History of hypertension (7) Renal failure (ARF), acute on chronic (8) Electrolyte imbalance (9) Anemia (10) Diabetes mellitus (11) Hypertension Ayush Chang MD Nov 19, 2019 12:14
--- NOTE | 2019-11-19 13:29 | Surgery Progress Note ---
Surgery Progress Note Subjective Procedure Performed removal Right femoral temporary hemodialysis catheter Additional Comments no acute events labs stable comfortable appearing Objective Last 24 Hour Vital Signs Date Time Temp Pulse Resp B/P (MAP) Pulse Ox O2 Delivery O2 Flow Rate FiO2 11/19/19 13:17 114/55 11/19/19 09:00 97.9 78 19 143/59 (87) 97 11/19/19 09:00 Nasal Cannula 2.0 11/19/19 08:52 79 135/89 11/19/19 08:51 135/89 11/19/19 08:51 79 135/89 11/19/19 08:01 97 Nasal Cannula 2.0 28 11/19/19 07:34 150/63 11/19/19 04:00 97.7 75 20 133/56 (81) 98 11/19/19 00:00 98.2 70 20 153/53 (86) 94 11/18/19 22:00 110/50 11/18/19 21:00 Nasal Cannula 2.0 11/18/19 21:00 112/52 11/18/19 21:00 67 112/52 11/18/19 20:00 97.0 66 18 112/52 (72) 100 11/18/19 19:33 98 Nasal Cannula 2.0 28 11/18/19 16:00 98.6 63 18 116/50 (72) 99 11/18/19 13:50 100/46 I&O Intake and Output 11/18/19 11/19/19 19:00 07:00 Intake Total 800 ml 600 ml Output Total 2 ml Balance 800 ml 598 ml Free Water 280 ml 160 ml Tube Feeding 520 ml 440 ml Output Urine Total 2 ml # Bowel Movements 2 Dressing: other Wound: other Cardiovascular: RSR Respiratory: decreased breath sounds Abdomen: soft, non-tender, present bowel sounds Extremities: no tenderness, no cyanosis Laboratory Tests Test 11/18/19 17:39 POC Whole Blood Glucose 168 MG/DL (74-106) H Plan Problems: (1) Hypercarbia (2) Pleural effusion (3) Chronic renal failure (4) Anemia (5) CHF (congestive heart failure) (6) Bacteremia (7) Cellulitis Assessment & Plan: improving no active bleeding eric ley will monitor (8) Hypoglycemia (9) Hyponatremia (10) ATN (acute tubular necrosis) (11) Metabolic acidosis Assessment & Plan: DYSPHAGIA RISK FACTORS INCLUDE: RESPIRATORY WELL MULTIPLE MEDICAL COMPLICATIONS, SHORTNESS OF BREATH, WORK OF BREATHING, DECREASED MENTATION, HX OF SUBOPTIMAL P.O. INTAKE, LETHARGY (DIFFICULTY SUSTAINING WAKEFULNESS) , CLINICAL HISTORY: AMS CURRENT CXR: Indication: Shortness of breath Technique: One view of the chest Comparison: 10/31/2019 Findings: Interim placement of nasogastric tube, tip projected at the level of the gastric body. This was also demonstrated on 11/01/2019 abdominal radiograph. Bilateral hazy opacity appears similar to or perhaps slightly increased from the prior study. Generalized mild interstitial prominence persists. 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 TRIALS OF ICE CHIPS, ONE AT A TIME. LINGUAL SIZE PRESENTS ENLARGED. PATIENT PERSISTENTLY MOUTH BREATHING. WHEN PRESENTED WITH ONE ICE CHIP HE MANIPULATED IT, ALLOWED IT TO MELT ON HIS TONGUE AND AFTER A MODERATE DELAY, HE SWALLOWED. RR CHANGES FROM 18 BREATHS PER MINUTE TO 25 BREATHS PER MINUTE ALONG WITH WORK OF BREATHING. WHEN ASKED TO SAY "AH" POST SWALLOW, PATIENTS VOCAL QUALITY WAS WET/GURGLY. HYOLARYNGEAL EXCURSION PRESENTED MODERATELY DECREASED. PATIENT ESSENTIALLY NON/VERBAL THIS AFTERNOON. HIGH ASPIRATION RISK. HIS RISK FOR CONSISTENT/STABLE/SUFFICIENT P.O. INTAKE TO SUPPORT NUTRITION/HYDRATION NEEDS. RECOMMENDATIONS: 1. CONTINUE NON/ORAL FEEDING MANAGEMENT PRIMARY SOURCE OF NUTRITION/ HYDRATION/MEDICATION 2. NPO STATUS 3. RE/ORDER SWALLOW EVALUATION IF/WHEN PATIENTS MEDICAL STATUS STABILIZES. DAILY ESTIMATED NEEDS: Needs based on Critical care, wound 71kg abw 22-28 kcals/kg 7180-7019 total kcals 1.25-2 g protein/kg 88-154 g total protein 25-30 mL/kg 6987-2770 total fluid mLs NUTRITION DIAGNOSIS: 1) Swallowing difficulty r/t respiratory status as evidenced by pt is vent dep via trach, GT dep. 2) Increased kcal/prot needs R/T wound healing as evidenced by pt admitted w/ multiple wounds including full thickness x3, refer to wound care eval for full report. CURRENT TF:NPO ENTERAL NUTRITION RECOMMENDATIONS: Glucerna 1.2 @60ml/hr x24 hrs + Prosource 1pkt QD to provide 1440ml, 1728 kcal, 86g +11g pro, 1159ml free H2o - As medically appropriate, initiate Glucerna 1.2 @ 30ml/hr x 6hrs - Advance 10ml q 4-6 hrs as tolerated to goal rate - Add Prosource 1pkt daily to better meet protein needs - HOB over 30 degrees/ water flush 120ml q 4hrs PARENTERAL NUTRITION RECOMMENDATIONS TPN Comment: Rec TPN to meet est needs with anticipated prolonged NPO status ADDITIONAL RECOMMENDATIONS: 1) Calibrated bedscale wt 2) Rec adding D5 IVF while pt is NPO to prevent hypoglycemia 3) Monitor lytes w/ TF, replete as needed 4) Wound healing: Vit C 250mg BID + SILVESTRE BID w/ TF orders 5) Monitor need for NISS w/ TF: h/o DM 6) Consider TPN w/ anticipated prolonged NPO status Hardware: Nasogastric tube terminates in the region of the stomach. Distal portion of a central venous catheter terminates in the junction of the SVC and right atrium. Abdomen: Nonspecific partially visualized bowel gas pattern. No free air. Bones: Normal. Soft tissues: Normal. Visualized chest: Hazy and interstitial opacities and right greater than left lungs. Atherosclerotic calcifications of the aorta. Borderline size of the cardiac silhouette. IMPRESSION: Nasogastric tube terminates in the region of the stomach. (12) Pneumonia (13) Cellulitis of foot Assessment & Plan: Pt presented on admission with Bilat TMA. Pressure injuries both heels. Stable dry necrosis note to Plantar /lateral L TMA. L Heel is boggy with non- Blanchable erythema. . R Heel Boggy with Non-Blanchable erythema.Haemosiderin with Xerosis skin noted to R and L lower ext. Darker skin tone without erythema , induration or fluctuance Medial L Malleolus. Darker skin tone without erythema or induration noted to sacrum. Tx.Plan: Apply Moisture Barrier Paste to Sacrum. Cover with Optifoam drsg.Change every 3 days and prn. Apply Betadine to eschar plantar/lateral L TMA . Cover with Optifoam drsg. Change every 3 days and prn. Apply Cavilon Skin Barrier to both heels and Malleoli. Cover each site with Optifoam drsg. Change every 7days and prn. Reposition at least every 2hours or as tolerated. Off load heels with pillow.Hx prior amputation prior MRI and plain films reviewed wounds stable and local care being provided no abscess noted cont with dressings elevate heels with pillow turn q2h off load pressure air mattress will follow with recs thank you (14) Osteomyelitis (15) History of hypertension (16) Renal failure (ARF), acute on chronic Assessment & Plan: HD line removed 11/09 (17) Acute encephalopathy (18) Diabetes mellitus (19) Hypertension (20) Cholelithiasis Assessment & Plan: US reviewed exam benign asymptomatic cholelithiasis alk phos mild elevated lfts improved trend labs no acute surgical intervention planned Liver: Liver measures 14.8 cm. No intrahepatic bile duct dilation. Gallbladder: Small stone in the gallbladder. No significant gallbladder wall thickening or pericholecystic fluid. Negative sonographic Bianchi's sign. Common bile duct: Normal common bile duct measuring 4.5 mm. No stones. No dilation. Pancreas: Pancreas is not visualized due to overlying bowel gas. Kidneys: Right kidney measures 9.1 cm in length. No hydronephrosis or stone. Left kidney not visualized due to patient's body habitus. Spleen: Spleen measures 9.4 cm. No focal lesion. Aorta: Visualized portions of the aorta are grossly unremarkable. The mid and distal portions are obscured by bowel gas. Inferior vena cava: Unremarkable. Free fluid: No ascites. Tubes, lines and devices: Lyles catheter in a decompressed bladder. IMPRESSION: Small stone in the gallbladder. No significant gallbladder wall thickening or pericholecystic fluid. Negative sonographic Bianchi's sign. Mariusz Diehl Nov 19, 2019 13:29
--- NOTE | 2019-11-19 13:41 | Infectious Diseases Prog Note ---
Assessment/Plan 79yo M from SNF who p/w hypoglycemia and resp failure: Acute hypoxic respiratory failure, on BiPAP > 2L NC> RA > 2L NC Rapid COVID neg x2 (10/21, 10/24) Pneumonia on CXR, sp rx Volume overload 10/30 CXR: Slightly improved 10/25 CXR: Bilateral alveolar densities are unchanged 10/24 Sp cx normal resp demario (prelim) 10/23 CXR: 1. Small layering right pleural effusion, not significantly changed. The previously noted small left pleural effusion is not as evident.Prominent lung markings and haziness, right greater left, which may be related to pulmonary vascular congestion versus pneumonitis. This is not significantly changed.. Subsegmental atelectasis versus infiltrate in the medial left lung base, also not significantly changed. 10/21 CXR: 1. Small bilateral pleural effusions. Bibasilar atelectasis versus pneumonia. 2. Prominent lung markings and hazy opacities in right greater than left lungs may represent artifact versus pulmonary vasculature congestion and edema versus infectious/inflammatory process. 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 Afebrile No leukocytosis Anemia to 6.8, improved UA neg, UCx neg 10/21 BCx Neg ALEXIS on CKD, worsening --> now on HD HBsAg neg Plan: Cont to monitor off abx 11/07 Clindamycin x1 for catheter placement 10/31 SP CTX #7 10/26 SP vancomycin IV #5 Trend resp status Monitor CBC, CMP recommend ENT eval as outpt PEG care aspiration precautions discharge planning Thank you for this consult. [facility] will continue to follow. Subjective Allergies: Coded Allergies: PENICILLINS (Verified Allergy, Unknown, 10/25/19) tolerated Ceftriaxone afebrile at 2l NC no leukocytosis no new events Objective Last 24 Hour Vital Signs Date Time Temp Pulse Resp B/P (MAP) Pulse Ox O2 Delivery O2 Flow Rate FiO2 11/19/19 13:17 114/55 11/19/19 09:00 97.9 78 19 143/59 (87) 97 11/19/19 09:00 Nasal Cannula 2.0 11/19/19 08:52 79 135/89 11/19/19 08:51 135/89 11/19/19 08:51 79 135/89 11/19/19 08:01 97 Nasal Cannula 2.0 28 11/19/19 07:34 150/63 11/19/19 04:00 97.7 75 20 133/56 (81) 98 11/19/19 00:00 98.2 70 20 153/53 (86) 94 11/18/19 22:00 110/50 11/18/19 21:00 Nasal Cannula 2.0 11/18/19 21:00 112/52 11/18/19 21:00 67 112/52 11/18/19 20:00 97.0 66 18 112/52 (72) 100 11/18/19 19:33 98 Nasal Cannula 2.0 28 11/18/19 16:00 98.6 63 18 116/50 (72) 99 11/18/19 13:50 100/46 Height (Feet): 5 Height (Inches): 5.00 Weight (Pounds): 191 Gen NAD Pulm: BL chest rise Abd: soft, NTND; abd binder in place Ext: No c/c/e, 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 skin: no rash Microbiology Date/Time Source Procedure Growth Status 11/18/19 15:30 Nasopharynx SARS-CoV-2 RdRp Gene Assay - Final Complete Laboratory Tests Test 11/18/19 17:39 POC Whole Blood Glucose 168 MG/DL (74-106) H Current Medications Medications (Trade) Dose Ordered Sig/Cammy Route PRN Reason Start Time Stop Time Status Last Admin Dose Admin Acetaminophen (Tylenol) 650 mg Q6H PRN NG Pain 3-5 11/14/19 12:00 12/02/19 00:00 11/18/19 10:03 Amlodipine Besylate (Norvasc) 10 mg DAILY NG 11/15/19 09:00 11/25/19 08:59 11/18/19 08:29 Atorvastatin Calcium (Lipitor) 10 mg BEDTIME NG 11/14/19 21:00 01/21/20 20:59 11/18/19 21:26 Chlorhexidine Gluconate (Yi-Hex 2%) 1 applic DAILY@2000 TOPIC 11/14/19 20:00 01/31/20 19:59 11/18/19 22:20 Clonidine HCl (Catapres TTS-1) 1 patch QWEEK TDERMAL 11/19/19 19:00 02/10/20 18:59 Dextrose (Dextrose 50%) 25 ml Q30M PRN IV Hypoglycemia 11/14/19 10:45 01/20/20 21:44 Dextrose (Dextrose 50%) 50 ml Q30M PRN IV Hypoglycemia 11/14/19 10:45 01/20/20 21:44 Docusate Sodium (Colace) 100 mg THREE TIMES A DAY NG 11/14/19 13:00 12/02/19 17:59 11/19/19 13:16 Epoetin William (Epoetin William(ESRD on dialysis)) 10,000 unit SUBQ 11/15/19 21:00 02/01/20 20:59 11/17/19 20:45 Haloperidol (Haldol) 5 mg Q12H PRN NG Agitation 11/14/19 12:00 12/26/19 00:00 Haloperidol Lactate (Haldol) 5 mg Q6H PRN IM Agitation 11/14/19 12:00 12/10/19 00:00 11/18/19 00:28 Hydralazine HCl (Apresoline) 25 mg Q8HR NG 11/17/19 14:00 02/15/20 13:59 11/19/19 07:34 Insulin Aspart (NovoLOG) Q6HR SUBQ 11/14/19 12:00 01/31/20 06:29 11/19/19 13:17 Lactulose (Cephulac) 10 gm BID NG 11/14/19 18:00 12/01/19 08:59 11/19/19 08:51 Lansoprazole (Prevacid) 30 mg DAILY NG 11/15/19 09:00 12/11/19 08:59 11/19/19 08:51 Levothyroxine Sodium (Synthroid) 75 mcg DAILY@0630 NG 11/15/19 06:30 12/04/19 06:29 11/19/19 07:29 Lisinopril (PriniviL) 20 mg Q12HR NG 11/15/19 21:00 12/13/19 20:59 11/17/19 20:42 Metoprolol Tartrate (Lopressor) 50 mg Q12HR NG 11/15/19 09:00 02/13/20 08:59 11/18/19 08:33 Neomycin/ Polymyxin/ Bacitracin (Neomycin/Polymy/ Bacitr Oint) 1 applic DAILY TOPIC 11/18/19 14:00 02/16/20 13:59 11/19/19 08:52 Polyethylene Glycol (Miralax) 17 gm BEDTIME NG 11/14/19 21:00 12/01/19 20:59 11/18/19 21:19 Sennosides (Senokot) 8.6 mg HSPRN PRN NG Constipation 11/14/19 12:00 12/14/19 11:59 Trinity Pan M.D. Nov 19, 2019 13:41
--- NOTE | 2019-11-19 14:11 | Hematology/Onc Progress Note ---
Assessment/Plan Assessment/Plan ASSESSMENT AND RECOMMENDATIONS: # Anemia of chronic disease due to underlying chronic medical issues, multifactorial --> Anemia w/u has been reviewed. --> no evidence of hemolysis is noted, peripheral smear has been reviewed --> hgb goal is >7, transfuse as needed --> currently remains stable, occult blood negative --> hgb 8.4->8.6->8.3->8->8.2->9.2-->9.2->8.9-->8.1-->8.7>9.4-->8.7-->8->7.8 --> some blood loss due to hematuria after inflated reyes pulled 8/6 am --> EPOGEN Started # Acute kidney injury r/o potential reversible component --> reviewed meds, those that are renally cleared removed --> as per renal recs, appreciated --> cr 3.5-->4.2 --> Hd started and dw renal # Hypertension, essential --> sbp goal is <140, consider anti-htn as needed --> currently started on hyralazine 25mg po q6h prn sbp >140 # CHF - hx of CHf --> diuresis with lasix as needed --> cardiology recs appreciated prior adm #. Leukocytosis with underlying infectionv stress reaction HISTORY --> per id and better --> for infection, ABX ctx/vanc-->off --> wbc 10-->5.9 #. Bilateral lower extremity amputee, metatarsal several years ago #. Dysphagia s/p peg --> peg pulled out and now with gtube #. Hyperkalemia -- kayxelate as needed #. Agitation requires restraints #. Dvt ppx scds --> apixaban->off for catheter placement 11/07 The time the note was entered does not necessarily correspond to the time the patient was seen. GREATLY APPRECIATE CONSULTATION. Subjective Constitutional: Denies: no symptoms, chills, fever, malaise, weakness, other HEENT: Denies: no symptoms, eye pain, blurred vision, tearing, double vision, ear pain, ear discharge, nose pain, nose congestion, throat pain, throat swelling, mouth pain, mouth swelling, other Neurologic/Psychiatric: Denies: no symptoms, anxiety, depressed, emotional problems, headache, numbness, paresthesia, pre-existing deficit, seizure, tingling, tremors, weakness, other Endocrine: Denies: no symptoms, excessive sweating, flushing, intolerance to cold, intolerance to heat, increased hunger, increased thirst, increased urine, unexplained weight gain, unexplained weight loss, other Allergies: Coded Allergies: PENICILLINS (Verified Allergy, Unknown, 10/25/19) tolerated Ceftriaxone Subjective 10/[address] Chang, to do best to avoid haldol, continue restraints, jag rn, on nc, feeling better 10/25 still with some agitation overnight, meds reviewed, jag rn, haldol given in AM 10/26 is on 2l nc, also is on restraints, no night sweats, no bleeding 10/27 reyes catheter has been removed by patient, and resinserted, bed sheets, with bright red blood on exam 10/28 labs are noted, no bleeding, cr is worse, seen by renal, remains edematous 11/04 no major changes, hd as per renal, recs are noted, labs reviewed, pending neuro eval 11/05 is on bipap with restraints, no major changes, no bleeding, labs noted 11/06 remains agitated, is off eliquis for catheter placement for tuesday 11/07 on bipap, remains agitated, jag salas, procedure today 11/08 remains confused, no bleeding, meds noted, hgb 8.9, may need peg 11/09 on bipap, remains confused in restraints, jag rn, hgb lower 11/10 no new events, overnight bipap, now 2oxygen nc, cbc is pending, right chest pc 11/11 ngtube was pulled out, jag salas, on nc, holding dc, restraints needed 11/13 gtube was pulled out and now with ngt, no bleeding, jag salas 11/14 ng was taken out again, and reinserted by night rn, jag salas in am 11/15 remains with ng now, for peg scheduled today, labs noted, afebrile 11/16 no bleeding noted, no hemolysis, hgb remains approx 8 11/17 remains altered, no bleeding jag Rn, no major changes 11/18 dc planning in progress, no major changes, no bleeding, no fc Objective Objective Current Medications Medications (Trade) Dose Ordered Sig/Cammy Route PRN Reason Start Time Stop Time Status Last Admin Dose Admin Acetaminophen (Tylenol) 650 mg Q6H PRN NG Pain 3-5 11/14/19 12:00 12/02/19 00:00 11/18/19 10:03 Amlodipine Besylate (Norvasc) 10 mg DAILY NG 11/15/19 09:00 11/25/19 08:59 11/18/19 08:29 Atorvastatin Calcium (Lipitor) 10 mg BEDTIME NG 11/14/19 21:00 01/21/20 20:59 11/18/19 21:26 Chlorhexidine Gluconate (Yi-Hex 2%) 1 applic DAILY@1999 TOPIC 11/14/19 20:00 01/31/20 19:59 11/18/19 22:20 Clonidine HCl (Catapres TTS-1) 1 patch QWEEK TDERMAL 11/19/19 19:00 02/10/20 18:59 Dextrose (Dextrose 50%) 25 ml Q30M PRN IV Hypoglycemia 11/14/19 10:45 01/20/20 21:44 Dextrose (Dextrose 50%) 50 ml Q30M PRN IV Hypoglycemia 11/14/19 10:45 01/20/20 21:44 Docusate Sodium (Colace) 100 mg THREE TIMES A DAY NG 11/14/19 13:00 12/02/19 17:59 11/19/19 13:16 Epoetin William (Epoetin William(ESRD on dialysis)) 10,000 unit FRI-FRI-FRI SUBQ 11/15/19 21:00 02/01/20 20:59 11/17/19 20:45 Haloperidol (Haldol) 5 mg Q12H PRN NG Agitation 11/14/19 12:00 12/26/19 00:00 Haloperidol Lactate (Haldol) 5 mg Q6H PRN IM Agitation 11/14/19 12:00 12/10/19 00:00 11/18/19 00:28 Hydralazine HCl (Apresoline) 25 mg Q8HR NG 11/17/19 14:00 02/15/20 13:59 11/19/19 07:34 Insulin Aspart (NovoLOG) Q6HR SUBQ 11/14/19 12:00 01/31/20 06:29 11/19/19 13:17 Lactulose (Cephulac) 10 gm BID NG 11/14/19 18:00 12/01/19 08:59 11/19/19 08:51 Lansoprazole (Prevacid) 30 mg DAILY NG 11/15/19 09:00 12/11/19 08:59 11/19/19 08:51 Levothyroxine Sodium (Synthroid) 75 mcg DAILY@0630 NG 11/15/19 06:30 12/04/19 06:29 11/19/19 07:29 Lisinopril (PriniviL) 20 mg Q12HR NG 11/15/19 21:00 12/13/19 20:59 11/17/19 20:42 Metoprolol Tartrate (Lopressor) 50 mg Q12HR NG 11/15/19 09:00 02/13/20 08:59 11/18/19 08:33 Neomycin/ Polymyxin/ Bacitracin (Neomycin/Polymy/ Bacitr Oint) 1 applic DAILY TOPIC 11/18/19 14:00 02/16/20 13:59 11/19/19 08:52 Polyethylene Glycol (Miralax) 17 gm BEDTIME NG 11/14/19 21:00 12/01/19 20:59 11/18/19 21:19 Sennosides (Senokot) 8.6 mg HSPRN PRN NG Constipation 11/14/19 12:00 12/14/19 11:59 Last 24 Hour Vital Signs Date Time Temp Pulse Resp B/P (MAP) Pulse Ox O2 Delivery O2 Flow Rate FiO2 11/19/19 13:17 114/55 11/19/19 09:00 97.9 78 19 143/59 (87) 97 11/19/19 09:00 Nasal Cannula 2.0 11/19/19 08:52 79 135/89 11/19/19 08:51 135/89 11/19/19 08:51 79 135/89 11/19/19 08:01 97 Nasal Cannula 2.0 28 11/19/19 07:34 150/63 11/19/19 04:00 97.7 75 20 133/56 (81) 98 11/19/19 00:00 98.2 70 20 153/53 (86) 94 11/18/19 22:00 110/50 11/18/19 21:00 Nasal Cannula 2.0 11/18/19 21:00 112/52 11/18/19 21:00 67 112/52 11/18/19 20:00 97.0 66 18 112/52 (72) 100 11/18/19 19:33 98 Nasal Cannula 2.0 28 11/18/19 16:00 98.6 63 18 116/50 (72) 99 11/18/19 13:50 100/46 11/18/19 13:24 98 Nasal Cannula 2.0 28 11/18/19 12:00 97.9 72 19 126/52 (76) 97 11/18/19 08:33 121/49 11/18/19 08:33 64 121/49 11/18/19 08:29 64 121/49 11/18/19 08:00 98.1 64 19 121/49 (73) 98 11/18/19 06:41 Nasal Cannula 2.0 11/18/19 05:59 121/47 11/18/19 04:00 98.3 65 19 121/47 (71) 98 11/18/19 02:26 70 16 97 11/18/19 00:00 97.7 62 19 119/57 (77) 100 11/17/19 21:10 126/66 11/17/19 21:00 Nasal Cannula 2.0 11/17/19 20:42 126/66 11/17/19 20:41 82 126/66 11/17/19 20:00 97.7 64 20 126/66 (86) 99 11/17/19 19:41 97 Nasal Cannula 2.0 28 11/17/19 16:00 97.2 59 19 103/60 (74) 100 11/17/19 14:31 120/55 Intake and Output 11/18/19 11/19/19 19:00 07:00 Intake Total 800 ml 600 ml Output Total 2 ml Balance 800 ml 598 ml Free Water 280 ml 160 ml Tube Feeding 520 ml 440 ml Output Urine Total 2 ml # Bowel Movements 2 Labs Test 11/16/19 17:27 11/16/19 23:05 11/17/19 04:49 11/17/19 05:31 POC Whole Blood Glucose 143 MG/DL (74-106) 128 MG/DL (74-106) 131 MG/DL (74-106) White Blood Count 5.9 K/UL (4.8-10.8) Red Blood Count 2.72 M/UL (4.70-6.10) Hemoglobin 8.0 G/DL (14.2-18.0) Hematocrit 27.3 % (42.0-52.0) Mean Corpuscular Volume 101 FL (80-99) Mean Corpuscular Hemoglobin 29.4 PG (27.0-31.0) Mean Corpuscular Hemoglobin Concent 29.2 G/DL (32.0-36.0) Red Cell Distribution Width 15.7 % (11.6-14.8) Platelet Count 258 K/UL (150-450) Mean Platelet Volume 7.2 FL (6.5-10.1) Neutrophils (%) (Auto) 76.9 % (45.0-75.0) Lymphocytes (%) (Auto) 16.1 % (20.0-45.0) Monocytes (%) (Auto) 4.8 % (1.0-10.0) Eosinophils (%) (Auto) 1.2 % (0.0-3.0) Basophils (%) (Auto) 0.9 % (0.0-2.0) Sodium Level 141 MMOL/L (136-145) Potassium Level 4.8 MMOL/L (3.5-5.1) Chloride Level 102 MMOL/L (98-107) Carbon Dioxide Level 34 MMOL/L (21-32) Anion Gap 6 mmol/L (5-15) Blood Urea Nitrogen 87 mg/dL (7-18) Creatinine 3.4 MG/DL (0.55-1.30) Estimat Glomerular Filtration Rate 17.5 mL/min (>60) Glucose Level 126 MG/DL (74-106) Calcium Level 9.5 MG/DL (8.5-10.1) Phosphorus Level 4.8 MG/DL (2.5-4.9) Magnesium Level 3.0 MG/DL (1.8-2.4) Total Bilirubin 0.4 MG/DL (0.2-1.0) Aspartate Amino Transf (AST/SGOT) 18 U/L (15-37) Alanine Aminotransferase (ALT/SGPT) 10 U/L (12-78) Alkaline Phosphatase 109 U/L (46-116) Total Protein 5.7 G/DL (6.4-8.2) Albumin 2.3 G/DL (3.4-5.0) Globulin 3.4 g/dL Albumin/Globulin Ratio 0.7 (1.0-2.7) Test 11/17/19 13:19 11/17/19 23:31 11/18/19 05:42 11/18/19 05:54 POC Whole Blood Glucose 146 MG/DL (74-106) 163 MG/DL (74-106) White Blood Count 5.4 K/UL (4.8-10.8) Red Blood Count 2.68 M/UL (4.70-6.10) Hemoglobin 7.8 G/DL (14.2-18.0) Hematocrit 26.8 % (42.0-52.0) Mean Corpuscular Volume 100 FL (80-99) Mean Corpuscular Hemoglobin 29.1 PG (27.0-31.0) Mean Corpuscular Hemoglobin Concent 29.1 G/DL (32.0-36.0) Red Cell Distribution Width 15.3 % (11.6-14.8) Platelet Count 278 K/UL (150-450) Mean Platelet Volume 7.9 FL (6.5-10.1) Neutrophils (%) (Auto) % (45.0-75.0) Lymphocytes (%) (Auto) % (20.0-45.0) Monocytes (%) (Auto) % (1.0-10.0) Eosinophils (%) (Auto) % (0.0-3.0) Basophils (%) (Auto) % (0.0-2.0) Differential Total Cells Counted 100 Neutrophils % (Manual) 83 % (45-75) Lymphocytes % (Manual) 7 % (20-45) Monocytes % (Manual) 8 % (1-10) Eosinophils % (Manual) 2 % (0-3) Basophils % (Manual) 0 % (0-2) Band Neutrophils 0 % (0-8) Platelet Estimate Adequate Platelet Morphology Normal Hypochromasia 2+ Anisocytosis 1+ Macrocytosis 1+ Stomatocytes Rare Sodium Level 142 MMOL/L (136-145) Potassium Level 4.7 MMOL/L (3.5-5.1) Chloride Level 105 MMOL/L (98-107) Carbon Dioxide Level 35 MMOL/L (21-32) Anion Gap 2 mmol/L (5-15) Blood Urea Nitrogen 91 mg/dL (7-18) Creatinine 3.7 MG/DL (0.55-1.30) Estimat Glomerular Filtration Rate 15.8 mL/min (>60) Glucose Level 172 MG/DL (74-106) Calcium Level 8.8 MG/DL (8.5-10.1) Phosphorus Level 4.6 MG/DL (2.5-4.9) Magnesium Level 2.9 MG/DL (1.8-2.4) Total Bilirubin 0.3 MG/DL (0.2-1.0) Aspartate Amino Transf (AST/SGOT) 17 U/L (15-37) Alanine Aminotransferase (ALT/SGPT) 14 U/L (12-78) Alkaline Phosphatase 127 U/L (46-116) Total Protein 5.7 G/DL (6.4-8.2) Albumin 2.2 G/DL (3.4-5.0) Globulin 3.5 g/dL Albumin/Globulin Ratio 0.6 (1.0-2.7) Test 11/18/19 12:18 11/18/19 17:39 POC Whole Blood Glucose 165 MG/DL (74-106) 168 MG/DL (74-106) Micro Microbiology Date/Time Source Procedure Growth Status 11/18/19 15:30 Nasopharynx SARS-CoV-2 RdRp Gene Assay - Final Complete Height (Feet): 5 Height (Inches): 5.00 Weight (Pounds): 191 Objective GENERAL: Not in acute distress. HEENT: ++ngt PULMONARY: Decreased breath sounds. ++ bipap CHEST: ++permacath CARDIOVASCULAR: Regular rate. No S3 or S4. ABDOMEN: Soft, nontender, nondistended.++peg EXTREMITIES: 1+ edema. No cyanosis, swelling, or edema. 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 Melvin Rizzo MD Nov 19, 2019 14:11
[2019-11-19 16:00] VITALS: BP 127/62
[2019-11-19 20:00] VITALS: BP 118/50
[2019-11-19] MEDS ORDERED: Epoetin Alfa-EPBX(ESRD on dialysis)4000 units/ml vial SUBQ SCH (21:00)
[2019-11-19] MEDS ORDERED: Epoetin Alfa-EPBX(ESRD on dialysis)2000 units/ml vial SUBQ SCH (21:00)
[2019-11-19] MEDS: Miralax 17gm pkt NG SCH (21:11)
[2019-11-19] MEDS: Dyna-Hex 2% Top Sol 2oz TOPIC SCH (21:11)
--- NOTE | 2019-11-19 23:54 | Psych Consult Progress Note ---
Psychiatry Progress Note Psychiatry Progress Note Subjective the pts mental condition is unchanged confused dec agitations disoriented Medications Current Medications Medications (Trade) Dose Ordered Sig/Cammy Route PRN Reason Start Time Stop Time Status Last Admin Dose Admin Acetaminophen (Tylenol) 650 mg Q6H PRN NG Pain 3-5 11/14/19 12:00 12/02/19 00:00 11/18/19 10:03 Amlodipine Besylate (Norvasc) 10 mg DAILY NG 11/15/19 09:00 11/25/19 08:59 11/18/19 08:29 Atorvastatin Calcium (Lipitor) 10 mg BEDTIME NG 11/14/19 21:00 01/21/20 20:59 11/19/19 21:11 Chlorhexidine Gluconate (Yi-Hex 2%) 1 applic DAILY@1999 TOPIC 11/14/19 20:00 01/31/20 19:59 11/19/19 21:11 Clonidine HCl (Catapres TTS-1) 1 patch QWEEK TDERMAL 11/19/19 19:00 02/10/20 18:59 11/19/19 18:16 Dextrose (Dextrose 50%) 25 ml Q30M PRN IV Hypoglycemia 11/14/19 10:45 01/20/20 21:44 Dextrose (Dextrose 50%) 50 ml Q30M PRN IV Hypoglycemia 11/14/19 10:45 01/20/20 21:44 Docusate Sodium (Colace) 100 mg THREE TIMES A DAY NG 11/14/19 13:00 12/02/19 17:59 11/19/19 17:20 Epoetin William (Epoetin William(ESRD on dialysis)) 4,000 unit -FRI SUBQ 11/19/19 21:00 11/19/19 23:59 11/19/19 21:14 Epoetin William (Epoetin William(ESRD on dialysis)) 6,000 unit -FRI SUBQ 11/19/19 21:00 11/19/19 23:59 11/19/19 21:14 Epoetin William (Epoetin William(ESRD on dialysis)) 10,000 unit FRI-FRI-FRI SUBQ 11/22/19 21:00 02/20/20 20:59 Haloperidol (Haldol) 5 mg Q12H PRN NG Agitation 11/14/19 12:00 12/26/19 00:00 Haloperidol Lactate (Haldol) 5 mg Q6H PRN IM Agitation 11/14/19 12:00 12/10/19 00:00 11/18/19 00:28 Hydralazine HCl (Apresoline) 25 mg Q8HR NG 11/17/19 14:00 02/15/20 13:59 11/19/19 23:07 Insulin Aspart (NovoLOG) Q6HR SUBQ 11/14/19 12:00 01/31/20 06:29 11/19/19 18:16 Lactulose (Cephulac) 10 gm BID NG 11/14/19 18:00 12/01/19 08:59 11/19/19 17:20 Lansoprazole (Prevacid) 30 mg DAILY NG 11/15/19 09:00 12/11/19 08:59 11/19/19 08:51 Levothyroxine Sodium (Synthroid) 75 mcg DAILY@0630 NG 11/15/19 06:30 12/04/19 06:29 11/19/19 07:29 Lisinopril (PriniviL) 20 mg Q12HR NG 11/15/19 21:00 12/13/19 20:59 11/17/19 20:42 Metoprolol Tartrate (Lopressor) 50 mg Q12HR NG 11/15/19 09:00 02/13/20 08:59 11/19/19 21:12 Neomycin/ Polymyxin/ Bacitracin (Neomycin/Polymy/ Bacitr Oint) 1 applic DAILY TOPIC 11/18/19 14:00 02/16/20 13:59 11/19/19 08:52 Polyethylene Glycol (Miralax) 17 gm BEDTIME NG 11/14/19 21:00 12/01/19 20:59 11/19/19 21:11 Sennosides (Senokot) 8.6 mg HSPRN PRN NG Constipation 11/14/19 12:00 12/14/19 11:59 Neurological/Psychiatric: Denies: no symptoms, anxiety, depressed, emotional problems, headache, numbness, paresthesia, pre-existing deficit, seizure, tingling, tremors, weakness, other Allergies: Coded Allergies: PENICILLINS (Verified Allergy, Unknown, 10/25/19) tolerated Ceftriaxone Objective Data Height (Feet): 5 Height (Inches): 5.00 Weight (Pounds): 191 General Appearance: no apparent distress, lethargic Appearance: no abnormalities noted Behavior Mannerisms: good eye contact Mental Status Exam - Affect: blunted Mental Status Exam - Mood: anxious, agitated Mental Status Exam - Thought P: tangential, confusion Mental Status Exam - Thought C: delusions (specify) Mental Status Exam - Suicidal: not present Additional Comments: awake, confused, and disoriented. Mood is agitated. Affect is flat. Thought process, there is a paucity of thought content. Thought content, no suicidal or homicidal ideation. Cognition is impaired. Insight and judgment impaired. Assessment/Plan Status: stable, unchanged Dada Finch MD Nov 19, 2019 23:54
[2019-11-20] VITALS: BP 128/57
[2019-11-20] MEDS: NovoLOG Insulin Flexpen SUBQ SCH ×5 (00:22→23:24)
[2019-11-20 04:00] VITALS: BP 108/51
[2019-11-20] MEDS: HydrALAZINE 50mg tab NG SCH ×3 (06:00→22:00)
[2019-11-20 08:00] VITALS: BP 111/44
--- NOTE | 2019-11-20 08:04 | Infectious Diseases Prog Note ---
Assessment/Plan 79yo M from SNF who p/w hypoglycemia and resp failure: Acute hypoxic respiratory failure, on BiPAP > 2L NC> RA > 2L NC Rapid COVID neg x2 (10/21, 10/24) Pneumonia on CXR, sp rx Volume overload 10/30 CXR: Slightly improved 10/25 CXR: Bilateral alveolar densities are unchanged 10/24 Sp cx normal resp demario (prelim) 10/23 CXR: 1. Small layering right pleural effusion, not significantly changed. The previously noted small left pleural effusion is not as evident.Prominent lung markings and haziness, right greater left, which may be related to pulmonary vascular congestion versus pneumonitis. This is not significantly changed.. Subsegmental atelectasis versus infiltrate in the medial left lung base, also not significantly changed. 10/21 CXR: 1. Small bilateral pleural effusions. Bibasilar atelectasis versus pneumonia. 2. Prominent lung markings and hazy opacities in right greater than left lungs may represent artifact versus pulmonary vasculature congestion and edema versus infectious/inflammatory process. 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 Afebrile No leukocytosis Anemia to 6.8, improved UA neg, UCx neg 10/21 BCx Neg ALEXIS on CKD, worsening --> now on HD HBsAg neg Plan: Cont to monitor off abx 11/07 Clindamycin x1 for catheter placement 10/31 SP CTX #7 10/26 SP vancomycin IV #5 Trend resp status Monitor CBC, CMP recommend ENT eval as outpt PEG care aspiration precautions discharge planning Thank you for this consult. [facility] will continue to follow. Subjective Allergies: Coded Allergies: PENICILLINS (Verified Allergy, Unknown, 10/25/19) tolerated Ceftriaxone AF NAD WBC 7.5 On NC Objective Last 24 Hour Vital Signs Date Time Temp Pulse Resp B/P (MAP) Pulse Ox O2 Delivery O2 Flow Rate FiO2 11/20/19 06:00 101/56 11/20/19 04:00 97.0 72 20 108/51 (70) 97 11/20/19 00:00 97.5 99 22 128/57 (80) 99 11/19/19 23:07 116/56 11/19/19 21:12 90 114/61 11/19/19 21:00 114/61 11/19/19 21:00 Nasal Cannula 2.0 11/19/19 20:18 98 Nasal Cannula 2.0 28 11/19/19 20:00 98.1 105 24 118/50 (72) 99 11/19/19 18:16 127/62 11/19/19 16:00 98.7 89 18 127/62 (83) 98 11/19/19 13:17 114/55 11/19/19 12:00 97.3 81 19 131/59 (83) 97 11/19/19 09:00 97.9 78 19 143/59 (87) 97 11/19/19 09:00 Nasal Cannula 2.0 11/19/19 08:52 79 135/89 11/19/19 08:51 135/89 11/19/19 08:51 79 135/89 Height (Feet): 5 Height (Inches): 5.00 Weight (Pounds): 189 Gen: Older man, NAD in bed CV: RRR Pulm: CTAB anteriorly on NC Abd: Soft, NTND Neuro: Eyes open to voice, speaking in [place] Microbiology Date/Time Source Procedure Growth Status 11/18/19 15:30 Nasopharynx SARS-CoV-2 RdRp Gene Assay - Final Complete Current Medications Medications (Trade) Dose Ordered Sig/Cammy Route PRN Reason Start Time Stop Time Status Last Admin Dose Admin Acetaminophen (Tylenol) 650 mg Q6H PRN NG Pain 3-5 11/14/19 12:00 12/02/19 00:00 11/18/19 10:03 Amlodipine Besylate (Norvasc) 10 mg DAILY NG 11/15/19 09:00 11/25/19 08:59 11/18/19 08:29 Atorvastatin Calcium (Lipitor) 10 mg BEDTIME NG 11/14/19 21:00 01/21/20 20:59 11/19/19 21:11 Chlorhexidine Gluconate (Yi-Hex 2%) 1 applic DAILY@2000 TOPIC 11/14/19 20:00 01/31/20 19:59 11/19/19 21:11 Clonidine HCl (Catapres TTS-1) 1 patch QWEEK TDERMAL 11/19/19 19:00 02/10/20 18:59 11/19/19 18:16 Dextrose (Dextrose 50%) 25 ml Q30M PRN IV Hypoglycemia 11/14/19 10:45 01/20/20 21:44 Dextrose (Dextrose 50%) 50 ml Q30M PRN IV Hypoglycemia 11/14/19 10:45 01/20/20 21:44 Docusate Sodium (Colace) 100 mg THREE TIMES A DAY NG 11/14/19 13:00 12/02/19 17:59 11/19/19 17:20 Epoetin William (Epoetin William(ESRD on dialysis)) 10,000 unit SUBQ 11/22/19 21:00 02/20/20 20:59 Haloperidol (Haldol) 5 mg Q12H PRN NG Agitation 11/14/19 12:00 12/26/19 00:00 Haloperidol Lactate (Haldol) 5 mg Q6H PRN IM Agitation 11/14/19 12:00 12/10/19 00:00 11/18/19 00:28 Hydralazine HCl (Apresoline) 25 mg Q8HR NG 11/17/19 14:00 02/15/20 13:59 11/19/19 23:07 Insulin Aspart (NovoLOG) Q6HR SUBQ 11/14/19 12:00 01/31/20 06:29 11/20/19 06:25 Lactulose (Cephulac) 10 gm BID NG 11/14/19 18:00 12/01/19 08:59 11/19/19 17:20 Lansoprazole (Prevacid) 30 mg DAILY NG 11/15/19 09:00 12/11/19 08:59 11/19/19 08:51 Levothyroxine Sodium (Synthroid) 75 mcg DAILY@0630 NG 11/15/19 06:30 12/04/19 06:29 11/20/19 06:20 Lisinopril (PriniviL) 20 mg Q12HR NG 11/15/19 21:00 12/13/19 20:59 11/17/19 20:42 Metoprolol Tartrate (Lopressor) 50 mg Q12HR NG 11/15/19 09:00 02/13/20 08:59 11/19/19 21:12 Neomycin/ Polymyxin/ Bacitracin (Neomycin/Polymy/ Bacitr Oint) 1 applic DAILY TOPIC 11/18/19 14:00 02/16/20 13:59 11/19/19 08:52 Polyethylene Glycol (Miralax) 17 gm BEDTIME NG 11/14/19 21:00 12/01/19 20:59 11/19/19 21:11 Sennosides (Senokot) 8.6 mg HSPRN PRN NG Constipation 11/14/19 12:00 12/14/19 11:59 Mckenna Diallo M.D. Nov 20, 2019 08:04
[2019-11-20] MEDS: Lisinopril 20mg tab NG SCH ×2 (08:40→20:45)
[2019-11-20] MEDS: Metoprolol Tartrate 50mg tab NG SCH ×2 (08:46→20:46)
[2019-11-20] MEDS: Lactulose 10gm/15ml UDC NG SCH (08:47)
[2019-11-20] MEDS: Docusate 100mg/10ml Liq NG SCH ×3 (08:48→17:27)
[2019-11-20] MEDS: Neosporin Oint 15gm TOPIC SCH (08:49)
--- NOTE | 2019-11-20 09:25 | Surgery Progress Note ---
Surgery Progress Note Subjective Procedure Performed removal Right femoral temporary hemodialysis catheter Additional Comments no acute events comfortable resting no complaints Objective Last 24 Hour Vital Signs Date Time Temp Pulse Resp B/P (MAP) Pulse Ox O2 Delivery O2 Flow Rate FiO2 11/20/19 08:46 57 111/44 11/20/19 08:46 57 111/44 11/20/19 08:40 111/44 11/20/19 08:00 97.7 57 18 111/44 (66) 99 11/20/19 06:00 101/56 11/20/19 04:00 97.0 72 20 108/51 (70) 97 11/20/19 00:00 97.5 99 22 128/57 (80) 99 11/19/19 23:07 116/56 11/19/19 21:12 90 114/61 11/19/19 21:00 114/61 11/19/19 21:00 Nasal Cannula 2.0 11/19/19 20:18 98 Nasal Cannula 2.0 28 11/19/19 20:00 98.1 105 24 118/50 (72) 99 11/19/19 18:16 127/62 11/19/19 16:00 98.7 89 18 127/62 (83) 98 11/19/19 13:17 114/55 11/19/19 12:00 97.3 81 19 131/59 (83) 97 I&O Intake and Output 11/19/19 11/20/19 19:00 07:00 Intake Total 100 ml 520 ml Output Total 2000 ml Balance -1900 ml 520 ml Free Water 60 ml 120 ml Tube Feeding 40 ml 400 ml Hemodialysis UF 2000 ml # Voids 2 # Bowel Movements 1 Cardiovascular: RSR Respiratory: decreased breath sounds Abdomen: soft, non-tender, present bowel sounds Extremities: no tenderness, no cyanosis Plan Problems: (1) Hypercarbia (2) Pleural effusion (3) Chronic renal failure (4) Anemia (5) CHF (congestive heart failure) (6) Bacteremia (7) Cellulitis Assessment & Plan: improving no active bleeding eric ley will monitor (8) Hypoglycemia (9) Hyponatremia (10) ATN (acute tubular necrosis) (11) Metabolic acidosis Assessment & Plan: DYSPHAGIA RISK FACTORS INCLUDE: RESPIRATORY WELL MULTIPLE MEDICAL COMPLICATIONS, SHORTNESS OF BREATH, WORK OF BREATHING, DECREASED MENTATION, HX OF SUBOPTIMAL P.O. INTAKE, LETHARGY (DIFFICULTY SUSTAINING WAKEFULNESS) , CLINICAL HISTORY: AMS CURRENT CXR: Indication: Shortness of breath Technique: One view of the chest Comparison: 10/31/2019 Findings: Interim placement of nasogastric tube, tip projected at the level of the gastric body. This was also demonstrated on 11/01/2019 abdominal radiograph. Bilateral hazy opacity appears similar to or perhaps slightly increased from the prior study. Generalized mild interstitial prominence persists. Impression: Stable slightly increased bilateral pleural effusions Otherwise little change analyst 3 days INITIAL IMPRESSION: PATIENT POSITIONED AT 90 DEGREES UPRIGHT IN BED AND PRESENTED WITH P.O. TRIALS OF ICE CHIPS, ONE AT A TIME. LINGUAL SIZE PRESENTS ENLARGED. PATIENT PERSISTENTLY MOUTH BREATHING. WHEN PRESENTED WITH ONE ICE CHIP HE MANIPULATED IT, ALLOWED IT TO MELT ON HIS TONGUE AND AFTER A MODERATE DELAY, HE SWALLOWED. RR CHANGES FROM 18 BREATHS PER MINUTE TO 25 BREATHS PER MINUTE ALONG WITH WORK OF BREATHING. WHEN ASKED TO SAY "AH" POST SWALLOW, PATIENTS VOCAL QUALITY WAS WET/GURGLY. HYOLARYNGEAL EXCURSION PRESENTED MODERATELY DECREASED. PATIENT ESSENTIALLY NON/VERBAL THIS AFTERNOON. HIGH ASPIRATION RISK. HIS RISK FOR CONSISTENT/STABLE/SUFFICIENT P.O. INTAKE TO SUPPORT NUTRITION/HYDRATION NEEDS. RECOMMENDATIONS: 1. CONTINUE NON/ORAL FEEDING MANAGEMENT PRIMARY SOURCE OF NUTRITION/ HYDRATION/MEDICATION 2. NPO STATUS 3. RE/ORDER SWALLOW EVALUATION IF/WHEN PATIENTS MEDICAL STATUS STABILIZES. DAILY ESTIMATED NEEDS: Needs based on Critical care, wound 71kg abw 22-28 kcals/kg 8544-8118 total kcals 1.25-2 g protein/kg 88-154 g total protein 25-30 mL/kg 7510-6300 total fluid mLs NUTRITION DIAGNOSIS: 1) Swallowing difficulty r/t respiratory status as evidenced by pt is vent dep via trach, GT dep. 2) Increased kcal/prot needs R/T wound healing as evidenced by pt admitted w/ multiple wounds including full thickness x3, refer to wound care eval for full report. CURRENT TF:NPO ENTERAL NUTRITION RECOMMENDATIONS: Glucerna 1.2 @60ml/hr x24 hrs + Prosource 1pkt QD to provide 1440ml, 1728 kcal, 86g +11g pro, 1159ml free H2o - As medically appropriate, initiate Glucerna 1.2 @ 30ml/hr x 6hrs - Advance 10ml q 4-6 hrs as tolerated to goal rate - Add Prosource 1pkt daily to better meet protein needs - HOB over 30 degrees/ water flush 120ml q 4hrs PARENTERAL NUTRITION RECOMMENDATIONS TPN Comment: Rec TPN to meet est needs with anticipated prolonged NPO status ADDITIONAL RECOMMENDATIONS: 1) Calibrated bedscale wt 2) Rec adding D5 IVF while pt is NPO to prevent hypoglycemia 3) Monitor lytes w/ TF, replete as needed 4) Wound healing: Vit C 250mg BID + SILVESTRE BID w/ TF orders 5) Monitor need for NISS w/ TF: h/o DM 6) Consider TPN w/ anticipated prolonged NPO status Hardware: Nasogastric tube terminates in the region of the stomach. Distal portion of a central venous catheter terminates in the junction of the SVC and right atrium. Abdomen: Nonspecific partially visualized bowel gas pattern. No free air. Bones: Normal. Soft tissues: Normal. Visualized chest: Hazy and interstitial opacities and right greater than left lungs. Atherosclerotic calcifications of the aorta. Borderline size of the cardiac silhouette. IMPRESSION: Nasogastric tube terminates in the region of the stomach. (12) Pneumonia (13) Cellulitis of foot Assessment & Plan: Pt presented on admission with Bilat TMA. Pressure injuries both heels. Stable dry necrosis note to Plantar /lateral L TMA. L Heel is boggy with non- Blanchable erythema. . R Heel Boggy with Non-Blanchable erythema.Haemosiderin with Xerosis skin noted to R and L lower ext. Darker skin tone without erythema , induration or fluctuance Medial L Malleolus. Darker skin tone without erythema or induration noted to sacrum. Tx.Plan: Apply Moisture Barrier Paste to Sacrum. Cover with Optifoam drsg.Change every 3 days and prn. Apply Betadine to eschar plantar/lateral L TMA . Cover with Optifoam drsg. Change every 3 days and prn. Apply Cavilon Skin Barrier to both heels and Malleoli. Cover each site with Optifoam drsg. Change every 7days and prn. Reposition at least every 2hours or as tolerated. Off load heels with pillow.Hx prior amputation prior MRI and plain films reviewed wounds stable and local care being provided no abscess noted cont with dressings elevate heels with pillow turn q2h off load pressure air mattress will follow with recs thank you (14) Osteomyelitis (15) History of hypertension (16) Renal failure (ARF), acute on chronic Assessment & Plan: HD line removed 11/09 (17) Acute encephalopathy (18) Diabetes mellitus (19) Hypertension (20) Cholelithiasis Assessment & Plan: US reviewed exam benign asymptomatic cholelithiasis alk phos mild elevated lfts improved trend labs no acute surgical intervention planned Liver: Liver measures 14.8 cm. No intrahepatic bile duct dilation. Gallbladder: Small stone in the gallbladder. No significant gallbladder wall thickening or pericholecystic fluid. Negative sonographic Bianchi's sign. Common bile duct: Normal common bile duct measuring 4.5 mm. No stones. No dilation. Pancreas: Pancreas is not visualized due to overlying bowel gas. Kidneys: Right kidney measures 9.1 cm in length. No hydronephrosis or stone. Left kidney not visualized due to patient's body habitus. Spleen: Spleen measures 9.4 cm. No focal lesion. Aorta: Visualized portions of the aorta are grossly unremarkable. The mid and distal portions are obscured by bowel gas. Inferior vena cava: Unremarkable. Free fluid: No ascites. Tubes, lines and devices: Lyles catheter in a decompressed bladder. IMPRESSION: Small stone in the gallbladder. No significant gallbladder wall thickening or pericholecystic fluid. Negative sonographic Bianchi's sign. Mariusz Diehl Nov 20, 2019 09:25
[2019-11-20 09:58] LABS: HEMATOCRIT 25.3 % (42.0-52.0); HEMOGLOBIN 7.5 G/DL (14.2-18.0); MEAN CORPUSCULAR VOLUME 99 FL (80-99); PLATELET COUNT 179 K/UL (150-450); RED BLOOD COUNT 2.57 M/UL (4.70-6.10); RED CELL DISTRIBUTION WIDTH 15.8 % (11.6-14.8); WHITE BLOOD COUNT 7.5 K/UL (4.8-10.8)
--- NOTE | 2019-11-20 10:06 | Pulmonology Progress Note ---
Reema Hanna ACCOUNT CLERK 11/20/19 1006: Subjective ROS Limited/Unobtainable: No Allergies: Coded Allergies: PENICILLINS (Verified Allergy, Unknown, 10/25/19) tolerated Ceftriaxone Subjective on 2L O2 via NC BiPAP at HS s/p new PEG 11/16; tolerates GTF diarrhea/loose x 2 this am, Objective Last 24 Hour Vital Signs Date Time Temp Pulse Resp B/P (MAP) Pulse Ox O2 Delivery O2 Flow Rate FiO2 11/20/19 08:46 57 111/44 11/20/19 08:46 57 111/44 11/20/19 08:40 111/44 11/20/19 08:00 97.7 57 18 111/44 (66) 99 11/20/19 06:00 101/56 11/20/19 04:00 97.0 72 20 108/51 (70) 97 11/20/19 00:00 97.5 99 22 128/57 (80) 99 11/19/19 23:07 116/56 11/19/19 21:12 90 114/61 11/19/19 21:00 114/61 11/19/19 21:00 Nasal Cannula 2.0 11/19/19 20:18 98 Nasal Cannula 2.0 28 11/19/19 20:00 98.1 105 24 118/50 (72) 99 11/19/19 18:16 127/62 11/19/19 16:00 98.7 89 18 127/62 (83) 98 11/19/19 13:17 114/55 11/19/19 12:00 97.3 81 19 131/59 (83) 97 Intake and Output 11/19/19 11/20/19 19:00 07:00 Intake Total 100 ml 520 ml Output Total 2000 ml Balance -1900 ml 520 ml Free Water 60 ml 120 ml Tube Feeding 40 ml 400 ml Hemodialysis UF 2000 ml # Voids 2 # Bowel Movements 1 Objective General Appearance: no apparent distress, [place] speaking awake, more alert and responsive male, Lines, tubes and drains: R chest tunneled HD catheter , R femoral temporal HD catheter HEENT: normocephalic, atraumatic, anicteric, mucous membranes moist, O2 2 L via NC, Respiratory/Chest: few scattered crackles, no exp wheezing, Cardiovascular/Chest: normal rate, SR Abdomen: normal bowel sounds, non tender, soft , abd binder, GT with TF Extremities: partially amputated BL foot/metatarsal Skin Exam: warm/dry Neurologic: abnormal gait, awake, more responsive responsive, Musculoskeletal: atrophy BLE Microbiology Date/Time Source Procedure Growth Status 11/18/19 15:30 Nasopharynx SARS-CoV-2 RdRp Gene Assay - Final Complete Laboratory Tests 11/20/19 09:45: White Blood Count 7.5, Red Blood Count 2.57L, Hemoglobin 7.5L, Hematocrit 25.3L , Mean Corpuscular Volume 99, Mean Corpuscular Hemoglobin 29.2, Mean Corpuscular Hemoglobin Concent 29.6L, Red Cell Distribution Width 15.8H, Platelet Count 179, Mean Platelet Volume 8.0, Neutrophils (%) (Auto) , Lymphocytes (%) (Auto) , Monocytes (%) (Auto) , Eosinophils (%) (Auto) , Basophils (%) (Auto) , Neutrophils % (Manual) [Pending], Lymphocytes % (Manual) [Pending], Platelet Estimate [Pending], Platelet Morphology [Pending], Sodium Level [Pending], Potassium Level [Pending], Chloride Level [Pending], Carbon Dioxide Level [Pending], Blood Urea Nitrogen [Pending], Creatinine [Pending], Estimat Glomerular Filtration Rate [Pending], Glucose Level [Pending], Calcium Level [Pending], Phosphorus Level [Pending], Magnesium Level [Pending], Total Bilirubin [Pending], Aspartate Amino Transf (AST/SGOT) [Pending], Alanine Aminotransferase (ALT/SGPT) [Pending], Alkaline Phosphatase [Pending], C- Reactive Protein, Quantitative [Pending], Pro-B-Type Natriuretic Peptide [ Pending], Total Protein [Pending], Albumin [Pending], Globulin [Pending] Current Medications Medications (Trade) Dose Ordered Sig/Cammy Route PRN Reason Start Time Stop Time Status Last Admin Dose Admin Acetaminophen (Tylenol) 650 mg Q6H PRN NG Pain 3-5 11/14/19 12:00 12/02/19 00:00 11/18/19 10:03 Amlodipine Besylate (Norvasc) 10 mg DAILY NG 11/15/19 09:00 11/25/19 08:59 8/29/20 08:46 Atorvastatin Calcium (Lipitor) 10 mg BEDTIME NG 11/14/19 21:00 01/21/20 20:59 11/19/19 21:11 Chlorhexidine Gluconate (Yi-Hex 2%) 1 applic DAILY@2000 TOPIC 11/14/19 20:00 01/31/20 19:59 11/19/19 21:11 Clonidine HCl (Catapres TTS-1) 1 patch QWEEK TDERMAL 11/19/19 19:00 02/10/20 18:59 11/19/19 18:16 Dextrose (Dextrose 50%) 25 ml Q30M PRN IV Hypoglycemia 11/14/19 10:45 01/20/20 21:44 Dextrose (Dextrose 50%) 50 ml Q30M PRN IV Hypoglycemia 11/14/19 10:45 01/20/20 21:44 Docusate Sodium (Colace) 100 mg THREE TIMES A DAY NG 11/14/19 13:00 12/02/19 17:59 11/19/19 17:20 Epoetin William (Epoetin William(ESRD on dialysis)) 10,000 unit FRI- SUBQ 11/22/19 21:00 02/20/20 20:59 Haloperidol (Haldol) 5 mg Q12H PRN NG Agitation 11/14/19 12:00 12/26/19 00:00 Haloperidol Lactate (Haldol) 5 mg Q6H PRN IM Agitation 11/14/19 12:00 12/10/19 00:00 11/18/19 00:28 Hydralazine HCl (Apresoline) 25 mg Q8HR NG 11/17/19 14:00 02/15/20 13:59 11/19/19 23:07 Insulin Aspart (NovoLOG) Q6HR SUBQ 11/14/19 12:00 01/31/20 06:29 11/20/19 06:25 Lansoprazole (Prevacid) 30 mg DAILY NG 11/15/19 09:00 12/11/19 08:59 11/20/19 08:39 Levothyroxine Sodium (Synthroid) 75 mcg DAILY@0630 NG 11/15/19 06:30 12/04/19 06:29 11/20/19 06:20 Lisinopril (PriniviL) 20 mg Q12HR NG 11/15/19 21:00 12/13/19 20:59 11/17/19 20:42 Metoprolol Tartrate (Lopressor) 50 mg Q12HR NG 11/15/19 09:00 02/13/20 08:59 11/19/19 21:12 Neomycin/ Polymyxin/ Bacitracin (Neomycin/Polymy/ Bacitr Oint) 1 applic DAILY TOPIC 11/18/19 14:00 02/16/20 13:59 11/20/19 08:49 Polyethylene Glycol (Miralax) 17 gm BEDTIME NG 11/14/19 21:00 12/01/19 20:59 11/19/19 21:11 Sennosides (Senokot) 8.6 mg HSPRN PRN NG Constipation 11/14/19 12:00 12/14/19 11:59 Assessment/Plan Assessment/Plan ASSESSMENT Acute hypoxemic hypercapnic respiratory failure requiring BiPAP Acute metabolic encephalopathy likely due to hypoglycemia Diabetes mellitus with initial hypoglycemia Probably pneumonia , s/p Rx Aspiration risk Dysphagia , s/p PEG , pulled out, s/p replacement of PEG 11/16 Acute kidney injury on chronic kidney disease, requiring start of HD 10/30 Severe anemia requiring blood transfusion Metabolic acidosis Electrolyte imbalance :hyponatremia, hyperkalemia HTN with HTN urgency Hematuria 2 to pt pulled off his Lyles catheter Possibly DAYANA PLAN OF CARE [facility] floor BiPAP at HS and prn currently on O2 2 L via NC titrate O2, pulm toilet patient likely has DAYANA. recommend sleep study as OP CXR 11/02 -> Stable slightly increased bilateral pleural effusions. 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 No hydronephrosis or nephrolithiasis. monitor volumes, renal parameters, lytes, correct as needed fup with nephro recs s/p placement of permanent HD catheter R chest 11/07 s/p removal of temporary HD catheter by surgeon ECHO with pEF 55-60% rate control with BB, now added, HR stable on chronic a/c , was on hold for PEG, resume Eliquis swallow eval with aspiration risk diet texture as per ST recs with strict asp precautions and assistance with meals NGT repeated BSSE 11/04 -> failed, recommended nonoral feeding started on NGT feeding strict aspiration precautions s/p PEG 11/08 asp precautions, GT site care, monitor tolerance of TF pulled out GT , needs replacement failed swallow eval 11/14 s/p PEG 11/16, tolerates GT feeding abd binder, AMS 10/[address] head negative, off sedatives ammonia WNL NGT inserted for meds as per nephro recs ( prior to G tube) NEED NEURO EVAL-per primary AMS improved to baseline psych follows HgA1c -6.1 hold oral anti-glycemic SSI prn sensitive initial AMS was most likely due to episode of hypoglycemia CT head NGT for acute ICP -done x 2 BP management with CCB BB and Hydralazine prn for BP spikes monitor HH with goal to keep Hgb above 7 stool OB anemia w/up noted , heme on board s/p 1 dose of Venofer on EPO hematuria resolved, Hgb at baseline GI prophayxlis supportive care diarrhea x 2 this am, dc lactulose for now WILL NEED TRILOGY VENT TO BE ARRANGED ON DISCHARGE ( pt needs BIPAP at HS and prn ) declined BiPAP prior for few nights, but was compliant prior , need reenforcement to use BiPAP at HS was informed 11/18 by CM that placement was found , however pt still in the hospital ok for dc form pulmonary standpoint BiPAP at HS and prn -12/5 FiO2 30% case discussed and evaluated by supervising physician Leoncio Galan MD 11/20/19 2144: Subjective Allergies: Coded Allergies: PENICILLINS (Verified Allergy, Unknown, 10/25/19) tolerated Ceftriaxone Assessment/Plan Assessment/Plan Patient seen and examined with ACCOUNT CLERK. Agree with above A&P as it reflects our joint deliberations. Reema Hanna NP Nov 20, 2019 10:06 Leoncio Galan MD Nov 20, 2019 21:44
[2019-11-20 10:20] LABS: ALANINE AMINOTRANSFERASE 13 U/L (12-78); ALBUMIN 2.1 G/DL (3.4-5.0); ALBUMIN/GLOBULIN RATIO 0.6 (1.0-2.7); ALKALINE PHOSPHATASE 169 U/L (46-116); ANION GAP 3 mmol/L (5-15); ASPARTATE AMINO TRANSFERASE 17 U/L (15-37); BILIRUBIN,TOTAL 0.3 MG/DL (0.2-1.0); BLOOD UREA NITROGEN 68 mg/dL (7-18); CALCIUM 8.6 MG/DL (8.5-10.1); CARBON DIOXIDE 30 MMOL/L (21-32); CHLORIDE 104 MMOL/L (98-107); CREATININE 3.4 MG/DL (0.55-1.30); PHOSPHORUS 3.9 MG/DL (2.5-4.9); POTASSIUM 4.7 MMOL/L (3.5-5.1); SODIUM 137 MMOL/L (136-145)
--- NOTE | 2019-11-20 10:59 | Nephrology Progress Note ---
Assessment/Plan Problem List: (1) Renal failure (ARF), acute on chronic (2) Metabolic acidosis (3) Electrolyte imbalance Assessment: Hyponatremia and hyperkalemia (4) Anemia (5) CHF (congestive heart failure) Assessment 79-year-old male is admitted for hypoglycemia Patient has renal failure which appears to be acute on chronic Hyperkalemia Hyponatremia CHF, pleural effusion, pneumonia Anemia Metabolic acidosis Hypothyroidism Plan November 19: Labs reviewed. Dialyzed yesterday. Stable. November 18: No labs done today. Due for dialysis today. Check labs tomorrow. November 17: Patient lethargic. Creatinine rising. We will attempt dialysis tomorrow. Labs and medications reviewed. November 16: Labs reviewed. Serum creatinine is slightly higher. Will adjust blood pressure medication. We will consider dialysis if further worsening of renal parameters ensued. November 15: Lab reviewed. Serum creatinine creeping up. We will continue to monitor renal parameters. Further rise in serum creatinine will again require dialysis. November 14: Lab reviewed. Serum creatinine danial lethargic. Is a NG tube. Doubt stone pass speech therapy for oral intake. We will continue to monitor renal parameters. Review mind altering medication and adjust as possible. Continue per consultants. November 13: Labs reviewed. Serum creatinine is leveling off. No dialysis needed at this time. Patient has NG tube. Due for swallowing study. We will continue to monitor renal parameters. He may not need any further dialysis treatment as the acute renal failure appears to have been resolved. Will adjust blood pressure medication. Continue per orders. November 12: Lab works are reviewed. Renal parameters stable. Dialysis as needed. Medication list reviewed. November 11: Patient last dialyzed November 09. Patient pulled out the GT tube. Slight bleeding from the site observed. GI to reinsert. Zestril added for BP control. Next hemodialysis tomorrow. November 10: Patient was dialyzed yesterday. Labs reviewed. Stable from renal standpoint of view. November 09: Patient due for dialysis today due to incomplete dialysis yesterday as a result of catheter malfunction. The femoral catheter was already removed this morning. Labs reviewed. Continue current management. November 08: Dialysis attempted through the permacath which was put in yesterday by IR. Due to high catheter pressure , dialysis was held and PTAse administered. Dialysis will be tried again tomorrow. Will check labs tomorrow. November 07: Patient due for tunneled catheter insertion today. Will order dialysis tomorrow. Continue to monitor renal parameters. Labs and medications reviewed. November 06: Patient due for tunnel catheter insertion November 07. Serum creatinine is rising. Labs reviewed. Continue per consultants. November 05: Last dialysis November 03. Eliquis on hold. Due tunneled catheter insertion on November 07. Labs are reviewed. Continue current management. November 04: Dialyzed yesterday. Due for insertion of tunneled catheter today. May need to hold Eliquis and reschedule catheter insertion on Friday. Will monitor renal parameters in the meantime. November 03: Dialyzed this morning. Stable from renal standpoint of view. Due for insertion of tunneled catheter tomorrow. November 02: Dialyzed yesterday. Will DC IV fluid. Dialysis tomorrow. Potassium supplement given. Per orders. November 01: Patient currently being dialyzed. Tolerating well. Labs will be reviewed. Continue per consultants. October 31: Patient was dialyzed yesterday. Clinically doing better. We will continue to monitor renal parameters. Dialysis as needed. October 30: Serum creatinine rising. Patient due to have a temporary dialysis catheter and due for dialysis today. Will continue to follow-up renal parameters. Patient remains full code. October 29: Serum creatinine rising. Serum creatinine 4.5 today. Calculated creatinine clearance is 12. Kidney ultrasound ordered yesterday results were reviewed. Patient appears to have acute renal failure due to underlying sepsis and nephrotoxic medications. Patient requires dialysis treatment. Ordered to obtain consent from the responsible democrat. Will communicate with PMD and or he is coverage. October 28: Serum creatinine higher to 4.2 today. Blood pressure appears more stable. In view of worsening renal failure, will order stat kidney ultrasound and urine studies. Continue to monitor renal parameters. Patient is full code. Worsening renal parameters may lead to hemodialysis treatment. October 27: Patient pulled out the Lyles catheter. Serum creatinine went up to 3.8. Blood pressure somewhat low. Heart rate in 50s. Will discontinue Coreg. We will continue to monitor renal parameters. October 26: Serum creatinine lower again today. Will abort the dialysis plan. Continue per consultants. Continue to monitor renal parameters. Medication list reviewed. October 25: Clinically improving. Serum creatinine lower. Urine output increased. No dialysis planned at this time. Continue per consultants. October 24: Patient's respiratory status somewhat improved. Serum creatinine down to 3.9. Urinary output somewhat increased. Will hold placement of dialysis catheter at this time. Blood pressure medication adjusted. Continue to monitor renal parameters. Per orders. October 23: Patient remains on BiPAP. More Kayexalate ordered. Will consider hemodialysis to correct fluid overload and hyperkalemia and acidosis. Will discuss with PMD. Meanwhile IV Synthroid started. Discussed with RN Timothy Patient already transfused 1 unit for severe anemia previously Will initiate Epogen 10,000 units subcutaneously 1 dose of IV iron Venofer 200 g IV Kayexalate for hyperkalemia as needed 2D echocardiogram ordered, ejection fraction is reported normal Kidney ultrasound ordered: Kidneys: Right kidney measures 9.1 cm in length. No hydronephrosis or stone. Left kidney not visualized due to patient's body habitus. Avoid nephrotoxic's Monitor renal parameters Will hold insulin and hypoglycemic agents until hypoglycemia is reasonably resolved Subjective ROS Limited/Unobtainable: No Constitutional: Reports: malaise Objective Objective Last 24 Hour Vital Signs Date Time Temp Pulse Resp B/P (MAP) Pulse Ox O2 Delivery O2 Flow Rate FiO2 11/20/19 08:46 57 111/44 11/20/19 08:46 57 111/44 11/20/19 08:40 111/44 11/20/19 08:00 97.7 57 18 111/44 (66) 99 11/20/19 06:00 101/56 11/20/19 04:00 97.0 72 20 108/51 (70) 97 11/20/19 00:00 97.5 99 22 128/57 (80) 99 11/19/19 23:07 116/56 11/19/19 21:12 90 114/61 11/19/19 21:00 114/61 11/19/19 21:00 Nasal Cannula 2.0 11/19/19 20:18 98 Nasal Cannula 2.0 28 11/19/19 20:00 98.1 105 24 118/50 (72) 99 11/19/19 18:16 127/62 11/19/19 16:00 98.7 89 18 127/62 (83) 98 11/19/19 13:17 114/55 11/19/19 12:00 97.3 81 19 131/59 (83) 97 Intake and Output 11/19/19 11/20/19 19:00 07:00 Intake Total 100 ml 520 ml Output Total 2000 ml Balance -1900 ml 520 ml Free Water 60 ml 120 ml Tube Feeding 40 ml 400 ml Hemodialysis UF 2000 ml # Voids 2 # Bowel Movements 1 Current Medications Medications (Trade) Dose Ordered Sig/Cammy Route PRN Reason Start Time Stop Time Status Last Admin Dose Admin Acetaminophen (Tylenol) 650 mg Q6H PRN NG Pain 3-5 11/14/19 12:00 12/02/19 00:00 11/18/19 10:03 Amlodipine Besylate (Norvasc) 10 mg DAILY NG 11/15/19 09:00 11/25/19 08:59 11/20/19 08:46 Atorvastatin Calcium (Lipitor) 10 mg BEDTIME NG 11/14/19 21:00 01/21/20 20:59 11/19/19 21:11 Chlorhexidine Gluconate (Yi-Hex 2%) 1 applic DAILY@1999 TOPIC 11/14/19 20:00 01/31/20 19:59 11/19/19 21:11 Clonidine HCl (Catapres TTS-1) 1 patch QWEEK TDERMAL 11/19/19 19:00 02/10/20 18:59 11/19/19 18:16 Dextrose (Dextrose 50%) 25 ml Q30M PRN IV Hypoglycemia 11/14/19 10:45 01/20/20 21:44 Dextrose (Dextrose 50%) 50 ml Q30M PRN IV Hypoglycemia 11/14/19 10:45 01/20/20 21:44 Docusate Sodium (Colace) 100 mg THREE TIMES A DAY NG 11/14/19 13:00 12/02/19 17:59 11/19/19 17:20 Epoetin William (Epoetin William(ESRD on dialysis)) 10,000 unit FRI-FRI-FRI SUBQ 11/22/19 21:00 02/20/20 20:59 Haloperidol (Haldol) 5 mg Q12H PRN NG Agitation 11/14/19 12:00 12/26/19 00:00 Haloperidol Lactate (Haldol) 5 mg Q6H PRN IM Agitation 11/14/19 12:00 12/10/19 00:00 11/18/19 00:28 Hydralazine HCl (Apresoline) 25 mg Q8HR NG 11/17/19 14:00 02/15/20 13:59 11/19/19 23:07 Insulin Aspart (NovoLOG) Q6HR SUBQ 11/14/19 12:00 01/31/20 06:29 11/20/19 06:25 Lansoprazole (Prevacid) 30 mg DAILY NG 11/15/19 09:00 12/11/19 08:59 11/20/19 08:39 Levothyroxine Sodium (Synthroid) 75 mcg DAILY@0630 NG 11/15/19 06:30 12/04/19 06:29 11/20/19 06:20 Lisinopril (PriniviL) 20 mg Q12HR NG 11/15/19 21:00 12/13/19 20:59 11/17/19 20:42 Metoprolol Tartrate (Lopressor) 50 mg Q12HR NG 11/15/19 09:00 02/13/20 08:59 11/19/19 21:12 Neomycin/ Polymyxin/ Bacitracin (Neomycin/Polymy/ Bacitr Oint) 1 applic DAILY TOPIC 11/18/19 14:00 02/16/20 13:59 11/20/19 08:49 Polyethylene Glycol (Miralax) 17 gm BEDTIME NG 11/14/19 21:00 12/01/19 20:59 11/19/19 21:11 Sennosides (Senokot) 8.6 mg HSPRN PRN NG Constipation 11/14/19 12:00 12/14/19 11:59 Laboratory Tests 11/20/19 09:45: White Blood Count 7.5, Red Blood Count 2.57L, Hemoglobin 7.5L, Hematocrit 25.3L , Mean Corpuscular Volume 99, Mean Corpuscular Hemoglobin 29.2, Mean Corpuscular Hemoglobin Concent 29.6L, Red Cell Distribution Width 15.8H, Platelet Count 179, Mean Platelet Volume 8.0, Neutrophils (%) (Auto) , Lymphocytes (%) (Auto) , Monocytes (%) (Auto) , Eosinophils (%) (Auto) , Basophils (%) (Auto) , Neutrophils % (Manual) [Pending], Lymphocytes % (Manual) [Pending], Platelet Estimate [Pending], Platelet Morphology [Pending], Sodium Level 137, Potassium Level 4.7, Chloride Level 104, Carbon Dioxide Level 30, Anion Gap 3L, Blood Urea Nitrogen 68H, Creatinine 3.4H, Estimat Glomerular Filtration Rate 17.5, Glucose Level 172H, Calcium Level 8.6, Phosphorus Level 3.9, Magnesium Level 2.9H, Total Bilirubin 0.3, Aspartate Amino Transf (AST/SGOT ) 17, Alanine Aminotransferase (ALT/SGPT) 13, Alkaline Phosphatase 169H, C- Reactive Protein, Quantitative 8.6H, Pro-B-Type Natriuretic Peptide 59168B, Total Protein 5.9L, Albumin 2.1L, Globulin 3.8, Albumin/Globulin Ratio 0.6L Height (Feet): 5 Height (Inches): 5.00 Weight (Pounds): 189 General Appearance: no apparent distress Cardiovascular: other - Variable Respiratory/Chest: decreased breath sounds Abdomen: soft Objective No change Naveed Vanegas MD Nov 20, 2019 10:59
[2019-11-20 12:00] VITALS: BP 128/46
[2019-11-20] MEDS ORDERED: Tubing IV Secondary IV ONE (15:24)
[2019-11-20] MEDS ORDERED: NS 275ml ONE (15:24)
--- NOTE | 2019-11-20 15:42 | General Progress Note ---
Assessment/Plan Status: stable, unchanged, other - Patient is scheduled to be discharged to [facility] where he can have both BiPAP and later in dialysis we will wait till on the condition required a full feeling AYUSH CAHNG MD Assessment/Plan: hospital course was marked by severe swepsis that required the use of broad spectrum anti biotics dialysis volume replacement and nutritional support, delivered by ng tube and later by gastrostomy tube Subjective Constitutional: Denies: no symptoms, chills, diaphoresis, fever, malaise, weakness, other HEENT: Reports: no symptoms Cardiovascular: Reports: other - No chest pain shortness of breath palpitations dizziness Allergies: Coded Allergies: PENICILLINS (Verified Allergy, Unknown, 10/25/19) tolerated Ceftriaxone Objective Last 24 Hour Vital Signs Date Time Temp Pulse Resp B/P (MAP) Pulse Ox O2 Delivery O2 Flow Rate FiO2 11/20/19 13:54 128/46 11/20/19 12:00 98.1 70 20 128/46 (73) 99 11/20/19 09:00 Nasal Cannula 2.0 11/20/19 08:46 57 111/44 11/20/19 08:46 57 111/44 11/20/19 08:40 111/44 11/20/19 08:00 97.7 57 18 111/44 (66) 99 11/20/19 06:00 101/56 11/20/19 04:00 97.0 72 20 108/51 (70) 97 11/20/19 00:00 97.5 99 22 128/57 (80) 99 11/19/19 23:07 116/56 11/19/19 21:12 90 114/61 11/19/19 21:00 114/61 11/19/19 21:00 Nasal Cannula 2.0 11/19/19 20:18 98 Nasal Cannula 2.0 28 11/19/19 20:00 98.1 105 24 118/50 (72) 99 11/19/19 18:16 127/62 11/19/19 16:00 98.7 89 18 127/62 (83) 98 Intake and Output 11/19/19 11/20/19 19:00 07:00 Intake Total 100 ml 520 ml Output Total 2000 ml Balance -1900 ml 520 ml Free Water 60 ml 120 ml Tube Feeding 40 ml 400 ml Hemodialysis UF 2000 ml # Voids 2 # Bowel Movements 1 Laboratory Tests 11/20/19 09:45: White Blood Count 7.5, Red Blood Count 2.57L, Hemoglobin 7.5L, Hematocrit 25.3L , Mean Corpuscular Volume 99, Mean Corpuscular Hemoglobin 29.2, Mean Corpuscular Hemoglobin Concent 29.6L, Red Cell Distribution Width 15.8H, Platelet Count 179, Mean Platelet Volume 8.0, Neutrophils (%) (Auto) , Lymphocytes (%) (Auto) , Monocytes (%) (Auto) , Eosinophils (%) (Auto) , Basophils (%) (Auto) , Differential Total Cells Counted 100, Neutrophils % ( Manual) 77H, Lymphocytes % (Manual) 14L, Monocytes % (Manual) 6, Eosinophils % ( Manual) 3, Basophils % (Manual) 0, Band Neutrophils 0, Platelet Estimate Adequate, Platelet Morphology Normal, Hypochromasia 3+, Anisocytosis 1+, Sodium Level 137, Potassium Level 4.7, Chloride Level 104, Carbon Dioxide Level 30, Anion Gap 3L, Blood Urea Nitrogen 68H, Creatinine 3.4H, Estimat Glomerular Filtration Rate 17.5, Glucose Level 172H, Calcium Level 8.6, Phosphorus Level 3.9, Magnesium Level 2.9H, Total Bilirubin 0.3, Aspartate Amino Transf (AST/SGOT ) 17, Alanine Aminotransferase (ALT/SGPT) 13, Alkaline Phosphatase 169H, C- Reactive Protein, Quantitative 8.6H, Pro-B-Type Natriuretic Peptide 77797U, Total Protein 5.9L, Albumin 2.1L, Globulin 3.8, Albumin/Globulin Ratio 0.6L Height (Feet): 5 Height (Inches): 5.00 Weight (Pounds): 189 General Appearance: no apparent distress, alert EENT: other - Mucous membranes are moist Neck: normal alignment, supple, other - No goiter no mass no lymphadenopathy Cardiovascular: normal rate, regular rhythm, no JVD, other - Heart sounds are normal Respiratory/Chest: lungs clear, other - With decreased breath sounds at both bases Abdomen: non tender, soft, no mass, other - Normal bowel sounds G-tube site clean Neurologic: alert, responsive, other - Answer appropriately simple questions Ayush Chang MD Nov 20, 2019 15:42
[2019-11-20 16:00] VITALS: BP 112/48
[2019-11-20 20:00] VITALS: BP 112/50
[2019-11-20] MEDS: Dyna-Hex 2% Top Sol 2oz TOPIC SCH (20:45)
[2019-11-20] MEDS: Miralax 17gm pkt NG SCH (20:45)
--- NOTE | 2019-11-20 22:03 | Cardiology Progress Note ---
Assessment/Plan Assessment/Plan 1. Sinus tachycardia, resolved, continue metoprolol. 2. Acute HFpEF with elevated BNP, 2D echocardiography shows normal LV systolic with LVEF of about 55% but e/o increased intracardiac filling pressure. BP control, mild diuretics. 3. Multiple risk factors for coronary artery disease include diabetes mellitus and hypertension. 4. History of peripheral vascular disease, status post partial foot amputation. 5. Acute on chronic renal failure. 6. Anemia of chronic disease. 7. HTN, well controlled, continue amlodipine, lisinopril, metoprolol and doxazosin. Subjective Subjective No cardiac events reported. Objective Last 24 Hour Vital Signs Date Time Temp Pulse Resp B/P (MAP) Pulse Ox O2 Delivery O2 Flow Rate FiO2 11/20/19 20:46 70 111/48 11/20/19 20:45 111/48 11/20/19 20:00 98.1 67 19 112/50 (70) 96 11/20/19 16:00 98.0 70 19 112/48 (69) 100 11/20/19 13:54 128/46 11/20/19 12:00 98.1 70 20 128/46 (73) 99 11/20/19 09:00 Nasal Cannula 2.0 11/20/19 08:46 57 111/44 11/20/19 08:46 57 111/44 11/20/19 08:40 111/44 11/20/19 08:00 97.7 57 18 111/44 (66) 99 11/20/19 06:00 101/56 11/20/19 04:00 97.0 72 20 108/51 (70) 97 11/20/19 00:00 97.5 99 22 128/57 (80) 99 11/19/19 23:07 116/56 Intake and Output 11/19/19 11/20/19 19:00 07:00 Intake Total 100 ml 520 ml Output Total 2000 ml Balance -1900 ml 520 ml Free Water 60 ml 120 ml Tube Feeding 40 ml 400 ml Hemodialysis UF 2000 ml # Voids 2 # Bowel Movements 1 2D Echo: LVEF 55%, Pseudo-normal LV physio grade II LV Diastolic fxn, RVSP 22 , GA Laboratory Tests Test 11/20/19 09:45 White Blood Count 7.5 K/UL (4.8-10.8) Red Blood Count 2.57 M/UL (4.70-6.10) L Hemoglobin 7.5 G/DL (14.2-18.0) L Hematocrit 25.3 % (42.0-52.0) L Mean Corpuscular Volume 99 FL (80-99) Mean Corpuscular Hemoglobin 29.2 PG (27.0-31.0) Mean Corpuscular Hemoglobin Concent 29.6 G/DL (32.0-36.0) L Red Cell Distribution Width 15.8 % (11.6-14.8) H Platelet Count 179 K/UL (150-450) Mean Platelet Volume 8.0 FL (6.5-10.1) Neutrophils (%) (Auto) % (45.0-75.0) Lymphocytes (%) (Auto) % (20.0-45.0) Monocytes (%) (Auto) % (1.0-10.0) Eosinophils (%) (Auto) % (0.0-3.0) Basophils (%) (Auto) % (0.0-2.0) Differential Total Cells Counted 100 Neutrophils % (Manual) 77 % (45-75) H Lymphocytes % (Manual) 14 % (20-45) L Monocytes % (Manual) 6 % (1-10) Eosinophils % (Manual) 3 % (0-3) Basophils % (Manual) 0 % (0-2) Band Neutrophils 0 % (0-8) Platelet Estimate Adequate Platelet Morphology Normal Hypochromasia 3+ Anisocytosis 1+ Sodium Level 137 MMOL/L (136-145) Potassium Level 4.7 MMOL/L (3.5-5.1) Chloride Level 104 MMOL/L (98-107) Carbon Dioxide Level 30 MMOL/L (21-32) Anion Gap 3 mmol/L (5-15) L Blood Urea Nitrogen 68 mg/dL (7-18) H Creatinine 3.4 MG/DL (0.55-1.30) H Estimat Glomerular Filtration Rate 17.5 mL/min (>60) Glucose Level 172 MG/DL (74-106) H Calcium Level 8.6 MG/DL (8.5-10.1) Phosphorus Level 3.9 MG/DL (2.5-4.9) Magnesium Level 2.9 MG/DL (1.8-2.4) H Total Bilirubin 0.3 MG/DL (0.2-1.0) Aspartate Amino Transf (AST/SGOT) 17 U/L (15-37) Alanine Aminotransferase (ALT/SGPT) 13 U/L (12-78) Alkaline Phosphatase 169 U/L (46-116) H C-Reactive Protein, Quantitative 8.6 mg/dL (0.00-0.90) H Pro-B-Type Natriuretic Peptide 74482 pg/mL (0-125) H Total Protein 5.9 G/DL (6.4-8.2) L Albumin 2.1 G/DL (3.4-5.0) L Globulin 3.8 g/dL Albumin/Globulin Ratio 0.6 (1.0-2.7) L Microbiology Date/Time Source Procedure Growth Status 11/18/19 15:30 Nasopharynx SARS-CoV-2 RdRp Gene Assay - Final Complete Objective HEENT: Atraumatic and normocephalic. Anicteric. Pupils are equal, round, and reactive to light and accommodation. Extraocular muscles intact. NECK: JVP less than 5 cm. No carotid bruit. Carotid upstroke is 2+ bilaterally. CARDIOVASCULAR: Normal S1, S2. Regular rate and rhythm. No murmurs, gallops, or rubs. LUNGS: Bilateral rhonchi. ABDOMEN: Soft, nontender, and nondistended. No hepatosplenomegaly. Positive bowel sounds. EXTREMITIES: Bilateral partial foot amputations. Chris Hanley MD Nov 20, 2019 22:03
[2019-11-21] VITALS: BP 113/52
[2019-11-21 04:00] VITALS: BP 110/60
[2019-11-21] MEDS: NovoLOG Insulin Flexpen SUBQ SCH ×4 (05:37→23:26)
[2019-11-21] MEDS: HydrALAZINE 50mg tab NG SCH ×3 (06:00→22:50)
--- NOTE | 2019-11-21 07:47 | Hematology/Onc Progress Note ---
Assessment/Plan Assessment/Plan ASSESSMENT AND RECOMMENDATIONS: # Anemia of chronic disease due to underlying chronic medical issues, multifactorial --> Anemia w/u has been reviewed. --> no evidence of hemolysis is noted, peripheral smear has been reviewed --> hgb goal is >7, transfuse as needed --> currently remains stable, occult blood negative --> hgb 8.4->8.6->8.3->8->8.2->9.2-->9.2->8.9-->8.1-->8.7>9.4-->8.7-->8->7.8-> 7.5 --> some blood loss due to hematuria after inflated reyes pulled 8/6 am --> EPOGEN Started # Acute kidney injury r/o potential reversible component --> reviewed meds, those that are renally cleared removed --> as per renal recs, appreciated --> cr 3.5-->4.2-->3.4 --> Hd started and dw renal # Hypertension, essential --> sbp goal is <140, consider anti-htn as needed --> currently started on hyralazine 25mg po q6h prn sbp >140 # CHF - hx of CHf --> diuresis with lasix as needed --> cardiology recs appreciated prior adm #. Leukocytosis with underlying infectionv stress reaction HISTORY --> per id and better --> for infection, ABX ctx/vanc-->off --> wbc 10-->5.9 #. Bilateral lower extremity amputee, metatarsal several years ago #. Dysphagia s/p peg --> peg pulled out and now with gtube #. Hyperkalemia -- kayxelate as needed #. Agitation requires restraints #. Dvt ppx scds --> apixaban->off for catheter placement 11/07 The time the note was entered does not necessarily correspond to the time the patient was seen. GREATLY APPRECIATE CONSULTATION. Subjective HEENT: Denies: no symptoms, eye pain, blurred vision, tearing, double vision, ear pain, ear discharge, nose pain, nose congestion, throat pain, throat swelling, mouth pain, mouth swelling, other Respiratory: Denies: no symptoms, cough, shortness of breath, SOB with excertion, SOB at rest, sputum, wheezing, other Gastrointestinal/Abdominal: Denies: no symptoms, abdomen distended, abdominal pain, black stools, tarry stools, blood in stool, constipated, diarrhea, difficulty swallowing, nausea, poor appetite, poor fluid intake, rectal bleeding , vomiting, other Genitourinary: Denies: no symptoms, burning, discharge, frequency, flank pain, hematuria, incontinence, pain, urgency, other Neurologic/Psychiatric: Denies: no symptoms, anxiety, depressed, emotional problems, headache, numbness, paresthesia, pre-existing deficit, seizure, tingling, tremors, weakness, other Endocrine: Denies: no symptoms, excessive sweating, flushing, intolerance to cold, intolerance to heat, increased hunger, increased thirst, increased urine, unexplained weight gain, unexplained weight loss, other Allergies: Coded Allergies: PENICILLINS (Verified Allergy, Unknown, 10/25/19) tolerated Ceftriaxone Subjective 10/[address] Chang, to do best to avoid haldol, continue restraints, jag salas, on nc, feeling better 10/25 still with some agitation overnight, meds reviewed, jag salas, haldol given in AM 10/26 is on 2l nc, also is on restraints, no night sweats, no bleeding 10/27 reyes catheter has been removed by patient, and resinserted, bed sheets, with bright red blood on exam 10/28 labs are noted, no bleeding, cr is worse, seen by renal, remains edematous 11/04 no major changes, hd as per renal, recs are noted, labs reviewed, pending neuro eval 11/05 is on bipap with restraints, no major changes, no bleeding, labs noted 11/06 remains agitated, is off eliquis for catheter placement for tuesday 11/07 on bipap, remains agitated, jag salas, procedure today 11/08 remains confused, no bleeding, meds noted, hgb 8.9, may need peg 11/09 on bipap, remains confused in restraints, jag rn, hgb lower 11/10 no new events, overnight bipap, now 2oxygen nc, cbc is pending, right chest pc 11/11 ngtube was pulled out, jag salas, on nc, holding dc, restraints needed 11/13 gtube was pulled out and now with ngt, no bleeding, jag salas 11/14 ng was taken out again, and reinserted by night rn, jag rn in am 11/15 remains with ng now, for peg scheduled today, labs noted, afebrile 11/16 no bleeding noted, no hemolysis, hgb remains approx 8 11/17 remains altered, no bleeding jag Rn, no major changes 11/18 dc planning in progress, no major changes, no bleeding, no fc 11/20 on gtube feeds, is on oxygen, no bleeding, meds reviewed, h/h stable Objective Objective Current Medications Medications (Trade) Dose Ordered Sig/Cammy Route PRN Reason Start Time Stop Time Status Last Admin Dose Admin Acetaminophen (Tylenol) 650 mg Q6H PRN NG Pain 3-5 11/14/19 12:00 12/02/19 00:00 11/18/19 10:03 Amlodipine Besylate (Norvasc) 10 mg DAILY NG 11/15/19 09:00 11/25/19 08:59 11/20/19 08:46 Atorvastatin Calcium (Lipitor) 10 mg BEDTIME NG 11/14/19 21:00 01/21/20 20:59 11/20/19 20:45 Chlorhexidine Gluconate (Yi-Hex 2%) 1 applic DAILY@2000 TOPIC 11/14/19 20:00 01/31/20 19:59 11/20/19 20:45 Clonidine HCl (Catapres TTS-1) 1 patch QWEEK TDERMAL 11/19/19 19:00 02/10/20 18:59 11/19/19 18:16 Dextrose (Dextrose 50%) 25 ml Q30M PRN IV Hypoglycemia 11/14/19 10:45 01/20/20 21:44 Dextrose (Dextrose 50%) 50 ml Q30M PRN IV Hypoglycemia 11/14/19 10:45 01/20/20 21:44 Docusate Sodium (Colace) 100 mg THREE TIMES A DAY NG 11/14/19 13:00 12/02/19 17:59 11/20/19 17:27 Epoetin William (Epoetin William(ESRD on dialysis)) 10,000 unit FRI-WED-FRI SUBQ 11/22/19 21:00 02/20/20 20:59 Haloperidol (Haldol) 5 mg Q12H PRN NG Agitation 11/14/19 12:00 12/26/19 00:00 Haloperidol Lactate (Haldol) 5 mg Q6H PRN IM Agitation 11/14/19 12:00 12/10/19 00:00 11/18/19 00:28 Hydralazine HCl (Apresoline) 25 mg Q8HR NG 11/17/19 14:00 02/15/20 13:59 11/20/19 13:54 Insulin Aspart (NovoLOG) Q6HR SUBQ 11/14/19 12:00 01/31/20 06:29 11/21/19 05:37 Lansoprazole (Prevacid) 30 mg DAILY NG 11/15/19 09:00 12/11/19 08:59 11/20/19 08:39 Levothyroxine Sodium (Synthroid) 75 mcg DAILY@0630 NG 11/15/19 06:30 12/04/19 06:29 11/21/19 05:38 Lisinopril (PriniviL) 20 mg Q12HR NG 11/15/19 21:00 12/13/19 20:59 11/17/19 20:42 Metoprolol Tartrate (Lopressor) 50 mg Q12HR NG 11/15/19 09:00 02/13/20 08:59 11/19/19 21:12 Neomycin/ Polymyxin/ Bacitracin (Neomycin/Polymy/ Bacitr Oint) 1 applic DAILY TOPIC 11/18/19 14:00 02/16/20 13:59 11/20/19 08:49 Polyethylene Glycol (Miralax) 17 gm BEDTIME NG 11/14/19 21:00 12/01/19 20:59 11/20/19 20:45 Sennosides (Senokot) 8.6 mg HSPRN PRN NG Constipation 11/14/19 12:00 12/14/19 11:59 Last 24 Hour Vital Signs Date Time Temp Pulse Resp B/P (MAP) Pulse Ox O2 Delivery O2 Flow Rate FiO2 11/21/19 06:00 110/59 11/21/19 04:00 97.4 72 19 110/60 (77) 98 11/21/19 00:00 97.3 71 19 113/52 (72) 98 11/20/19 22:00 110/49 11/20/19 21:00 Nasal Cannula 2.0 11/20/19 20:46 70 111/48 11/20/19 20:45 111/48 11/20/19 20:00 98.1 67 19 112/50 (70) 96 11/20/19 16:00 98.0 70 19 112/48 (69) 100 11/20/19 13:54 128/46 11/20/19 12:00 98.1 70 20 128/46 (73) 99 11/20/19 09:00 Nasal Cannula 2.0 11/20/19 08:46 57 111/44 11/20/19 08:46 57 111/44 11/20/19 08:40 111/44 11/20/19 08:00 97.7 57 18 111/44 (66) 99 11/20/19 06:00 101/56 11/20/19 04:00 97.0 72 20 108/51 (70) 97 11/20/19 00:00 97.5 99 22 128/57 (80) 99 11/19/19 23:07 116/56 11/19/19 21:12 90 114/61 11/19/19 21:00 114/61 11/19/19 21:00 Nasal Cannula 2.0 11/19/19 20:18 98 Nasal Cannula 2.0 28 11/19/19 20:00 98.1 105 24 118/50 (72) 99 11/19/19 18:16 127/62 11/19/19 16:00 98.7 89 18 127/62 (83) 98 11/19/19 13:17 114/55 11/19/19 12:00 97.3 81 19 131/59 (83) 97 11/19/19 09:00 97.9 78 19 143/59 (87) 97 11/19/19 09:00 Nasal Cannula 2.0 11/19/19 08:52 79 135/89 11/19/19 08:51 135/89 11/19/19 08:51 79 135/89 11/19/19 08:01 97 Nasal Cannula 2.0 28 Intake and Output 11/20/19 11/21/19 19:00 07:00 Intake Total 570 ml 550 ml Balance 570 ml 550 ml Free Water 90 ml 110 ml Tube Feeding 480 ml 440 ml # Voids 2 # Bowel Movements 3 Labs Test 11/18/19 12:18 11/18/19 17:39 8/29/20 09:45 POC Whole Blood Glucose 165 MG/DL (74-106) 168 MG/DL (74-106) White Blood Count 7.5 K/UL (4.8-10.8) Red Blood Count 2.57 M/UL (4.70-6.10) Hemoglobin 7.5 G/DL (14.2-18.0) Hematocrit 25.3 % (42.0-52.0) Mean Corpuscular Volume 99 FL (80-99) Mean Corpuscular Hemoglobin 29.2 PG (27.0-31.0) Mean Corpuscular Hemoglobin Concent 29.6 G/DL (32.0-36.0) Red Cell Distribution Width 15.8 % (11.6-14.8) Platelet Count 179 K/UL (150-450) Mean Platelet Volume 8.0 FL (6.5-10.1) Neutrophils (%) (Auto) % (45.0-75.0) Lymphocytes (%) (Auto) % (20.0-45.0) Monocytes (%) (Auto) % (1.0-10.0) Eosinophils (%) (Auto) % (0.0-3.0) Basophils (%) (Auto) % (0.0-2.0) Differential Total Cells Counted 100 Neutrophils % (Manual) 77 % (45-75) Lymphocytes % (Manual) 14 % (20-45) Monocytes % (Manual) 6 % (1-10) Eosinophils % (Manual) 3 % (0-3) Basophils % (Manual) 0 % (0-2) Band Neutrophils 0 % (0-8) Platelet Estimate Adequate Platelet Morphology Normal Hypochromasia 3+ Anisocytosis 1+ Sodium Level 137 MMOL/L (136-145) Potassium Level 4.7 MMOL/L (3.5-5.1) Chloride Level 104 MMOL/L (98-107) Carbon Dioxide Level 30 MMOL/L (21-32) Anion Gap 3 mmol/L (5-15) Blood Urea Nitrogen 68 mg/dL (7-18) Creatinine 3.4 MG/DL (0.55-1.30) Estimat Glomerular Filtration Rate 17.5 mL/min (>60) Glucose Level 172 MG/DL (74-106) Calcium Level 8.6 MG/DL (8.5-10.1) Phosphorus Level 3.9 MG/DL (2.5-4.9) Magnesium Level 2.9 MG/DL (1.8-2.4) Total Bilirubin 0.3 MG/DL (0.2-1.0) Aspartate Amino Transf (AST/SGOT) 17 U/L (15-37) Alanine Aminotransferase (ALT/SGPT) 13 U/L (12-78) Alkaline Phosphatase 169 U/L (46-116) C-Reactive Protein, Quantitative 8.6 mg/dL (0.00-0.90) Pro-B-Type Natriuretic Peptide 09114 pg/mL (0-125) Total Protein 5.9 G/DL (6.4-8.2) Albumin 2.1 G/DL (3.4-5.0) Globulin 3.8 g/dL Albumin/Globulin Ratio 0.6 (1.0-2.7) Height (Feet): 5 Height (Inches): 5.00 Weight (Pounds): 189 Objective GENERAL: Not in acute distress. HEENT: ++ngt PULMONARY: Decreased breath sounds. ++ bipap CHEST: ++permacath CARDIOVASCULAR: Regular rate. No S3 or S4. ABDOMEN: Soft, nontender, nondistended.++peg EXTREMITIES: 1+ edema. No cyanosis, swelling, or edema. 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 Melvin Rizzo MD Nov 21, 2019 07:47
[2019-11-21 08:00] VITALS: BP 117/47
[2019-11-21] MEDS: Metoprolol Tartrate 50mg tab NG SCH ×2 (08:28→21:00)
[2019-11-21] MEDS: Acetaminophen 650mg/20.3ml NG PRN ×2 (08:28→23:39)
[2019-11-21] MEDS: Docusate 100mg/10ml Liq NG SCH ×3 (08:29→17:14)
[2019-11-21] MEDS: Lisinopril 20mg tab NG SCH ×2 (08:29→21:00)
[2019-11-21] MEDS: Neosporin Oint 15gm TOPIC SCH (08:30)
--- NOTE | 2019-11-21 09:39 | Pulmonology Progress Note ---
Reema Hanna MOLD CARPENTER 11/21/19 0939: Subjective ROS Limited/Unobtainable: No Allergies: Coded Allergies: PENICILLINS (Verified Allergy, Unknown, 10/25/19) tolerated Ceftriaxone Subjective on 2L O2 via NC BiPAP at HS s/p new PEG 11/16; tolerates GTF dc plan pending Objective Last 24 Hour Vital Signs Date Time Temp Pulse Resp B/P (MAP) Pulse Ox O2 Delivery O2 Flow Rate FiO2 11/21/19 09:00 Nasal Cannula 2.0 11/21/19 08:58 97.4 11/21/19 08:29 117/47 11/21/19 08:28 78 117/47 11/21/19 08:28 78 117/47 11/21/19 08:00 98.9 78 18 117/47 (70) 100 11/21/19 06:00 110/59 11/21/19 04:00 97.4 72 19 110/60 (77) 98 11/21/19 00:00 97.3 71 19 113/52 (72) 98 11/20/19 22:00 110/49 11/20/19 21:00 Nasal Cannula 2.0 11/20/19 20:46 70 111/48 11/20/19 20:45 111/48 11/20/19 20:00 98.1 67 19 112/50 (70) 96 11/20/19 16:00 98.0 70 19 112/48 (69) 100 11/20/19 13:54 128/46 11/20/19 12:00 98.1 70 20 128/46 (73) 99 Intake and Output 11/20/19 11/21/19 19:00 07:00 Intake Total 570 ml 550 ml Balance 570 ml 550 ml Free Water 90 ml 110 ml Tube Feeding 480 ml 440 ml # Voids 2 # Bowel Movements 3 Objective General Appearance: no apparent distress, [place] speaking awake, more alert and responsive male, Lines, tubes and drains: R chest tunneled HD catheter , R femoral temporal HD catheter HEENT: normocephalic, atraumatic, anicteric, mucous membranes moist, O2 2 L via NC, Respiratory/Chest: few scattered crackles, no exp wheezing, Cardiovascular/Chest: normal rate, SR Abdomen: normal bowel sounds, non tender, soft , abd binder, GT with TF Extremities: partially amputated BL foot/metatarsal Skin Exam: warm/dry Neurologic: abnormal gait, awake, more responsive responsive, Musculoskeletal: atrophy BLE Microbiology Date/Time Source Procedure Growth Status 11/18/19 15:30 Nasopharynx SARS-CoV-2 RdRp Gene Assay - Final Complete Laboratory Tests 11/20/19 09:45: White Blood Count 7.5, Red Blood Count 2.57L, Hemoglobin 7.5L, Hematocrit 25.3L , Mean Corpuscular Volume 99, Mean Corpuscular Hemoglobin 29.2, Mean Corpuscular Hemoglobin Concent 29.6L, Red Cell Distribution Width 15.8H, Platelet Count 179, Mean Platelet Volume 8.0, Neutrophils (%) (Auto) , Lymphocytes (%) (Auto) , Monocytes (%) (Auto) , Eosinophils (%) (Auto) , Basophils (%) (Auto) , Differential Total Cells Counted 100, Neutrophils % ( Manual) 77H, Lymphocytes % (Manual) 14L, Monocytes % (Manual) 6, Eosinophils % ( Manual) 3, Basophils % (Manual) 0, Band Neutrophils 0, Platelet Estimate Adequate, Platelet Morphology Normal, Hypochromasia 3+, Anisocytosis 1+, Sodium Level 137, Potassium Level 4.7, Chloride Level 104, Carbon Dioxide Level 30, Anion Gap 3L, Blood Urea Nitrogen 68H, Creatinine 3.4H, Estimat Glomerular Filtration Rate 17.5, Glucose Level 172H, Calcium Level 8.6, Phosphorus Level 3.9, Magnesium Level 2.9H, Total Bilirubin 0.3, Aspartate Amino Transf (AST/SGOT ) 17, Alanine Aminotransferase (ALT/SGPT) 13, Alkaline Phosphatase 169H, C- Reactive Protein, Quantitative 8.6H, Pro-B-Type Natriuretic Peptide 80609I, Total Protein 5.9L, Albumin 2.1L, Globulin 3.8, Albumin/Globulin Ratio 0.6L Current Medications Medications (Trade) Dose Ordered Sig/Cammy Route PRN Reason Start Time Stop Time Status Last Admin Dose Admin Acetaminophen (Tylenol) 650 mg Q6H PRN NG Pain 3-5 11/14/19 12:00 12/02/19 00:00 11/21/19 08:28 Amlodipine Besylate (Norvasc) 10 mg DAILY NG 11/15/19 09:00 11/25/19 08:59 11/21/19 08:28 Atorvastatin Calcium (Lipitor) 10 mg BEDTIME NG 11/14/19 21:00 01/21/20 20:59 11/20/19 20:45 Chlorhexidine Gluconate (Yi-Hex 2%) 1 applic DAILY@2000 TOPIC 11/14/19 20:00 01/31/20 19:59 11/20/19 20:45 Clonidine HCl (Catapres TTS-1) 1 patch QWEEK TDERMAL 11/19/19 19:00 02/10/20 18:59 11/19/19 18:16 Dextrose (Dextrose 50%) 25 ml Q30M PRN IV Hypoglycemia 11/14/19 10:45 01/20/20 21:44 Dextrose (Dextrose 50%) 50 ml Q30M PRN IV Hypoglycemia 11/14/19 10:45 01/20/20 21:44 Docusate Sodium (Colace) 100 mg THREE TIMES A DAY NG 11/14/19 13:00 12/02/19 17:59 11/21/19 08:29 Epoetin William (Epoetin William(ESRD on dialysis)) 10,000 unit FRI-FRI-FRI SUBQ 11/22/19 21:00 02/20/20 20:59 Haloperidol (Haldol) 5 mg Q12H PRN NG Agitation 11/14/19 12:00 12/26/19 00:00 Haloperidol Lactate (Haldol) 5 mg Q6H PRN IM Agitation 11/14/19 12:00 12/10/19 00:00 11/18/19 00:28 Hydralazine HCl (Apresoline) 25 mg Q8HR NG 11/17/19 14:00 02/15/20 13:59 11/20/19 13:54 Insulin Aspart (NovoLOG) Q6HR SUBQ 11/14/19 12:00 01/31/20 06:29 11/21/19 05:37 Lansoprazole (Prevacid) 30 mg DAILY NG 11/15/19 09:00 12/11/19 08:59 11/21/19 08:27 Levothyroxine Sodium (Synthroid) 75 mcg DAILY@0630 NG 11/15/19 06:30 12/04/19 06:29 11/21/19 05:38 Lisinopril (PriniviL) 20 mg Q12HR NG 11/15/19 21:00 12/13/19 20:59 11/17/19 20:42 Metoprolol Tartrate (Lopressor) 50 mg Q12HR NG 11/15/19 09:00 02/13/20 08:59 11/21/19 08:28 Neomycin/ Polymyxin/ Bacitracin (Neomycin/Polymy/ Bacitr Oint) 1 applic DAILY TOPIC 11/18/19 14:00 02/16/20 13:59 11/21/19 08:30 Polyethylene Glycol (Miralax) 17 gm BEDTIME NG 11/14/19 21:00 12/01/19 20:59 11/20/19 20:45 Sennosides (Senokot) 8.6 mg HSPRN PRN NG Constipation 11/14/19 12:00 12/14/19 11:59 Assessment/Plan Assessment/Plan ASSESSMENT Acute hypoxemic hypercapnic respiratory failure requiring BiPAP Acute metabolic encephalopathy likely due to hypoglycemia Diabetes mellitus with initial hypoglycemia Probably pneumonia , s/p Rx Aspiration risk Dysphagia , s/p PEG , pulled out, s/p replacement of PEG 11/16 Acute kidney injury on chronic kidney disease, requiring start of HD 10/30 Severe anemia requiring blood transfusion Metabolic acidosis Electrolyte imbalance :hyponatremia, hyperkalemia HTN with HTN urgency Hematuria 2 to pt pulled off his Lyles catheter Possibly DAYANA PLAN OF CARE [facility] floor BiPAP at HS and prn currently on O2 2 L via NC titrate O2, pulm toilet patient likely has DAYANA. recommend sleep study as OP CXR 11/02 -> Stable slightly increased bilateral pleural effusions. Otherwise little bladder changer 3 days 10/21 and 10/24 rapid COVID NGT, abx as per ID recs -> Ceftriaxone , completed 10/30 ; s/p Vanco , completed Rx for PNA 7 days, remains afebrile no leucocytosis BCX 10/21 NGTD UCX NGT SCX if able Venous Duplex BLE 10/25 -> NGT CT head revealed bilateral mastoid disease; a new finding ID recommended ENT eval- pending- per primary team remains afebrile, asymptomatic on HD- started 10/30 renal US ->Mildly atrophic kidneys. No hydronephrosis or nephrolithiasis. monitor volumes, renal parameters, lytes, correct as needed fup with nephro recs s/p placement of permanent HD catheter R chest 11/07 s/p removal of temporary HD catheter by surgeon ECHO with pEF 55-60% rate control with BB, now added, HR stable on chronic a/c , was on hold for PEG, resume Eliquis swallow eval with aspiration risk diet texture as per ST recs with strict asp precautions and assistance with meals NGT repeated BSSE 11/04 -> failed, recommended nonoral feeding started on NGT feeding strict aspiration precautions s/p PEG 11/08 asp precautions, GT site care, monitor tolerance of TF pulled out GT , needs replacement failed swallow eval 11/14 s/p PEG 11/16, tolerates GT feeding abd binder, AMS 10/[address] head negative, off sedatives ammonia WNL NGT inserted for meds as per nephro recs ( prior to G tube) NEED NEURO EVAL-per primary AMS improved to baseline psych follows HgA1c -6.1 hold oral anti-glycemic SSI prn sensitive initial AMS was most likely due to episode of hypoglycemia CT head NGT for acute ICP -done x 2 BP management with CCB BB and Hydralazine prn for BP spikes monitor HH with goal to keep Hgb above 7 stool OB anemia w/up noted , heme on board s/p 1 dose of Venofer on EPO hematuria resolved, Hgb at baseline GI prophayxlis supportive care diarrhea x 2 this am, dc lactulose for now WILL NEED TRILOGY VENT TO BE ARRANGED ON DISCHARGE ( pt needs BIPAP at HS and prn ) declined BiPAP prior for few nights, but was compliant prior , need reenforcement to use BiPAP at HS was informed 11/18 by CM that placement was found , however pt still in the hospital ok for dc form pulmonary standpoint BiPAP at HS and prn -12/ FiO2 30% dc plan in progress case discussed and evaluated by supervising physician Leoncio Galan MD 11/21/192040: Subjective Allergies: Coded Allergies: PENICILLINS (Verified Allergy, Unknown, 10/25/19) tolerated Ceftriaxone Assessment/Plan Assessment/Plan Patient seen and examined with [facility]. Agree with above A&P as it reflects our joint deliberations. Reema Hanna NP Nov 21, 2019 09:39 Leoncio Galan MD Nov 21, 2019 20:41
--- NOTE | 2019-11-21 10:24 | Nephrology Progress Note ---
Assessment/Plan Problem List: (1) Renal failure (ARF), acute on chronic (2) Metabolic acidosis (3) Electrolyte imbalance Assessment: Hyponatremia and hyperkalemia (4) Anemia (5) CHF (congestive heart failure) Assessment 79-year-old male is admitted for hypoglycemia Patient has renal failure which appears to be acute on chronic Hyperkalemia Hyponatremia CHF, pleural effusion, pneumonia Anemia Metabolic acidosis Hypothyroidism Plan November 20: Last dialysis November 18. GT feeding in process. Check labs tomorrow. Dialysis as needed. November 19: Labs reviewed. Dialyzed yesterday. Stable. November 18: No labs done today. Due for dialysis today. Check labs tomorrow. November 17: Patient lethargic. Creatinine rising. We will attempt dialysis tomorrow. Labs and medications reviewed. November 16: Labs reviewed. Serum creatinine is slightly higher. Will adjust blood pressure medication. We will consider dialysis if further worsening of renal parameters ensued. November 15: Lab reviewed. Serum creatinine creeping up. We will continue to monitor renal parameters. Further rise in serum creatinine will again require dialysis. November 14: Lab reviewed. Serum creatinine danial lethargic. Is a NG tube. Doubt stone pass speech therapy for oral intake. We will continue to monitor renal parameters. Review mind altering medication and adjust as possible. Continue per consultants. November 13: Labs reviewed. Serum creatinine is leveling off. No dialysis needed at this time. Patient has NG tube. Due for swallowing study. We will continue to monitor renal parameters. He may not need any further dialysis treatment as the acute renal failure appears to have been resolved. Will adjust blood pressure medication. Continue per orders. November 12: Lab works are reviewed. Renal parameters stable. Dialysis as needed. Medication list reviewed. November 11: Patient last dialyzed November 09. Patient pulled out the GT tube. Slight bleeding from the site observed. GI to reinsert. Zestril added for BP control. Next hemodialysis tomorrow. November 10: Patient was dialyzed yesterday. Labs reviewed. Stable from renal standpoint of view. November 09: Patient due for dialysis today due to incomplete dialysis yesterday as a result of catheter malfunction. The femoral catheter was already removed this morning. Labs reviewed. Continue current management. November 08: Dialysis attempted through the permacath which was put in yesterday by IR. Due to high catheter pressure , dialysis was held and PTAse administered. Dialysis will be tried again tomorrow. Will check labs tomorrow. November 07: Patient due for tunneled catheter insertion today. Will order dialysis tomorrow. Continue to monitor renal parameters. Labs and medications reviewed. November 06: Patient due for tunnel catheter insertion November 07. Serum creatinine is rising. Labs reviewed. Continue per consultants. November 05: Last dialysis November 03. Eliquis on hold. Due tunneled catheter insertion on November 07. Labs are reviewed. Continue current management. November 04: Dialyzed yesterday. Due for insertion of tunneled catheter today. May need to hold Eliquis and reschedule catheter insertion on Friday. Will monitor renal parameters in the meantime. November 03: Dialyzed this morning. Stable from renal standpoint of view. Due for insertion of tunneled catheter tomorrow. November 02: Dialyzed yesterday. Will DC IV fluid. Dialysis tomorrow. Potassium supplement given. Per orders. November 01: Patient currently being dialyzed. Tolerating well. Labs will be reviewed. Continue per consultants. October 31: Patient was dialyzed yesterday. Clinically doing better. We will continue to monitor renal parameters. Dialysis as needed. October 30: Serum creatinine rising. Patient due to have a temporary dialysis catheter and due for dialysis today. Will continue to follow-up renal parameters. Patient remains full code. October 29: Serum creatinine rising. Serum creatinine 4.5 today. Calculated creatinine clearance is 12. Kidney ultrasound ordered yesterday results were reviewed. Patient appears to have acute renal failure due to underlying sepsis and nephrotoxic medications. Patient requires dialysis treatment. Ordered to obtain consent from the responsible constitution party. Will communicate with PMD and or he is coverage. October 28: Serum creatinine higher to 4.2 today. Blood pressure appears more stable. In view of worsening renal failure, will order stat kidney ultrasound and urine studies. Continue to monitor renal parameters. Patient is full code. Worsening renal parameters may lead to hemodialysis treatment. October 27: Patient pulled out the Lyles catheter. Serum creatinine went up to 3.8. Blood pressure somewhat low. Heart rate in 50s. Will discontinue Coreg. We will continue to monitor renal parameters. October 26: Serum creatinine lower again today. Will abort the dialysis plan. Continue per consultants. Continue to monitor renal parameters. Medication list reviewed. October 25: Clinically improving. Serum creatinine lower. Urine output increased. No dialysis planned at this time. Continue per consultants. October 24: Patient's respiratory status somewhat improved. Serum creatinine down to 3.9. Urinary output somewhat increased. Will hold placement of dialysis catheter at this time. Blood pressure medication adjusted. Continue to monitor renal parameters. Per orders. October 23: Patient remains on BiPAP. More Kayexalate ordered. Will consider hemodialysis to correct fluid overload and hyperkalemia and acidosis. Will discuss with PMD. Meanwhile IV Synthroid started. Discussed with RN Timothy Patient already transfused 1 unit for severe anemia previously Will initiate Epogen 10,000 units subcutaneously 1 dose of IV iron Venofer 200 g IV Kayexalate for hyperkalemia as needed 2D echocardiogram ordered, ejection fraction is reported normal Kidney ultrasound ordered: Kidneys: Right kidney measures 9.1 cm in length. No hydronephrosis or stone. Left kidney not visualized due to patient's body habitus. Avoid nephrotoxic's Monitor renal parameters Will hold insulin and hypoglycemic agents until hypoglycemia is reasonably resolved Subjective ROS Limited/Unobtainable: No Constitutional: Reports: malaise Objective Objective Last 24 Hour Vital Signs Date Time Temp Pulse Resp B/P (MAP) Pulse Ox O2 Delivery O2 Flow Rate FiO2 11/21/19 09:00 Nasal Cannula 2.0 11/21/19 08:58 97.4 11/21/19 08:29 117/47 11/21/19 08:28 78 117/47 11/21/19 08:28 78 117/47 11/21/19 08:00 98.9 78 18 117/47 (70) 100 11/21/19 06:00 110/59 11/21/19 04:00 97.4 72 19 110/60 (77) 98 11/21/19 00:00 97.3 71 19 113/52 (72) 98 11/20/19 22:00 110/49 11/20/19 21:00 Nasal Cannula 2.0 11/20/19 20:46 70 111/48 11/20/19 20:45 111/48 11/20/19 20:00 98.1 67 19 112/50 (70) 96 11/20/19 16:00 98.0 70 19 112/48 (69) 100 11/20/19 13:54 128/46 11/20/19 12:00 98.1 70 20 128/46 (73) 99 Intake and Output 11/20/19 11/21/19 19:00 07:00 Intake Total 570 ml 590 ml Balance 570 ml 590 ml Free Water 90 ml 110 ml Tube Feeding 480 ml 480 ml # Voids 2 # Bowel Movements 3 Height (Feet): 5 Height (Inches): 5.00 Weight (Pounds): 189 General Appearance: no apparent distress Cardiovascular: normal rate Respiratory/Chest: decreased breath sounds Abdomen: distended, other - PEG Objective No change Naveed Vanegas MD Nov 21, 2019 10:24
[2019-11-21 12:00] VITALS: BP 102/37
--- NOTE | 2019-11-21 13:01 | Surgery Progress Note ---
Surgery Progress Note Subjective Procedure Performed removal Right femoral temporary hemodialysis catheter Symptoms: improved Objective Last 24 Hour Vital Signs Date Time Temp Pulse Resp B/P (MAP) Pulse Ox O2 Delivery O2 Flow Rate FiO2 11/21/19 12:00 97.3 55 18 102/37 (58) 100 11/21/19 09:00 Nasal Cannula 2.0 11/21/19 08:58 97.4 11/21/19 08:29 117/47 11/21/19 08:28 78 117/47 11/21/19 08:28 78 117/47 11/21/19 08:00 98.9 78 18 117/47 (70) 100 11/21/19 07:00 100 Nasal Cannula 2.0 28 11/21/19 06:00 110/59 11/21/19 04:00 97.4 72 19 110/60 (77) 98 11/21/19 00:00 97.3 71 19 113/52 (72) 98 11/20/19 22:00 110/49 11/20/19 21:00 Nasal Cannula 2.0 11/20/19 20:46 70 111/48 11/20/19 20:45 111/48 11/20/19 20:00 98.1 67 19 112/50 (70) 96 11/20/19 16:00 98.0 70 19 112/48 (69) 100 11/20/19 13:54 128/46 I&O Intake and Output 11/20/19 11/21/19 19:00 07:00 Intake Total 570 ml 590 ml Balance 570 ml 590 ml Free Water 90 ml 110 ml Tube Feeding 480 ml 480 ml # Voids 2 # Bowel Movements 3 Dressing: saturated Cardiovascular: RSR Respiratory: decreased breath sounds Abdomen: soft, non-tender, present bowel sounds Extremities: no tenderness, no cyanosis Plan Problems: (1) Hypercarbia (2) Pleural effusion (3) Chronic renal failure (4) Anemia (5) CHF (congestive heart failure) (6) Bacteremia (7) Cellulitis Assessment & Plan: improving no active bleeding eric ley will monitor (8) Hypoglycemia (9) Hyponatremia (10) ATN (acute tubular necrosis) (11) Metabolic acidosis Assessment & Plan: DYSPHAGIA RISK FACTORS INCLUDE: RESPIRATORY WELL MULTIPLE MEDICAL COMPLICATIONS, SHORTNESS OF BREATH, WORK OF BREATHING, DECREASED MENTATION, HX OF SUBOPTIMAL P.O. INTAKE, LETHARGY (DIFFICULTY SUSTAINING WAKEFULNESS) , CLINICAL HISTORY: AMS CURRENT CXR: Indication: Shortness of breath Technique: One view of the chest Comparison: 10/31/2019 Findings: Interim placement of nasogastric tube, tip projected at the level of the gastric body. This was also demonstrated on 11/01/2019 abdominal radiograph. Bilateral hazy opacity appears similar to or perhaps slightly increased from the prior study. Generalized mild interstitial prominence persists. 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 TRIALS OF ICE CHIPS, ONE AT A TIME. LINGUAL SIZE PRESENTS ENLARGED. PATIENT PERSISTENTLY MOUTH BREATHING. WHEN PRESENTED WITH ONE ICE CHIP HE MANIPULATED IT, ALLOWED IT TO MELT ON HIS TONGUE AND AFTER A MODERATE DELAY, HE SWALLOWED. RR CHANGES FROM 18 BREATHS PER MINUTE TO 25 BREATHS PER MINUTE ALONG WITH WORK OF BREATHING. WHEN ASKED TO SAY "AH" POST SWALLOW, PATIENTS VOCAL QUALITY WAS WET/GURGLY. HYOLARYNGEAL EXCURSION PRESENTED MODERATELY DECREASED. PATIENT ESSENTIALLY NON/VERBAL THIS AFTERNOON. HIGH ASPIRATION RISK. HIS RISK FOR CONSISTENT/STABLE/SUFFICIENT P.O. INTAKE TO SUPPORT NUTRITION/HYDRATION NEEDS. RECOMMENDATIONS: 1. CONTINUE NON/ORAL FEEDING MANAGEMENT PRIMARY SOURCE OF NUTRITION/ HYDRATION/MEDICATION 2. NPO STATUS 3. RE/ORDER SWALLOW EVALUATION IF/WHEN PATIENTS MEDICAL STATUS STABILIZES. DAILY ESTIMATED NEEDS: Needs based on Critical care, wound 71kg abw 22-28 kcals/kg 9200-6854 total kcals 1.25-2 g protein/kg 88-154 g total protein 25-30 mL/kg 9832-0662 total fluid mLs NUTRITION DIAGNOSIS: 1) Swallowing difficulty r/t respiratory status as evidenced by pt is vent dep via trach, GT dep. 2) Increased kcal/prot needs R/T wound healing as evidenced by pt admitted w/ multiple wounds including full thickness x3, refer to wound care eval for full report. CURRENT TF:NPO ENTERAL NUTRITION RECOMMENDATIONS: Glucerna 1.2 @60ml/hr x24 hrs + Prosource 1pkt QD to provide 1440ml, 1728 kcal, 86g +11g pro, 1159ml free H2o - As medically appropriate, initiate Glucerna 1.2 @ 30ml/hr x 6hrs - Advance 10ml q 4-6 hrs as tolerated to goal rate - Add Prosource 1pkt daily to better meet protein needs - HOB over 30 degrees/ water flush 120ml q 4hrs PARENTERAL NUTRITION RECOMMENDATIONS TPN Comment: Rec TPN to meet est needs with anticipated prolonged NPO status ADDITIONAL RECOMMENDATIONS: 1) Calibrated bedscale wt 2) Rec adding D5 IVF while pt is NPO to prevent hypoglycemia 3) Monitor lytes w/ TF, replete as needed 4) Wound healing: Vit C 250mg BID + SILVESTRE BID w/ TF orders 5) Monitor need for NISS w/ TF: h/o DM 6) Consider TPN w/ anticipated prolonged NPO status Hardware: Nasogastric tube terminates in the region of the stomach. Distal portion of a central venous catheter terminates in the junction of the SVC and right atrium. Abdomen: Nonspecific partially visualized bowel gas pattern. No free air. Bones: Normal. Soft tissues: Normal. Visualized chest: Hazy and interstitial opacities and right greater than left lungs. Atherosclerotic calcifications of the aorta. Borderline size of the cardiac silhouette. IMPRESSION: Nasogastric tube terminates in the region of the stomach. (12) Pneumonia (13) Cellulitis of foot Assessment & Plan: Pt presented on admission with Bilat TMA. Pressure injuries both heels. Stable dry necrosis note to Plantar /lateral L TMA. L Heel is boggy with non- Blanchable erythema. . R Heel Boggy with Non-Blanchable erythema.Haemosiderin with Xerosis skin noted to R and L lower ext. Darker skin tone without erythema , induration or fluctuance Medial L Malleolus. Darker skin tone without erythema or induration noted to sacrum. Tx.Plan: Apply Moisture Barrier Paste to Sacrum. Cover with Optifoam drsg.Change every 3 days and prn. Apply Betadine to eschar plantar/lateral L TMA . Cover with Optifoam drsg. Change every 3 days and prn. Apply Cavilon Skin Barrier to both heels and Malleoli. Cover each site with Optifoam drsg. Change every 7days and prn. Reposition at least every 2hours or as tolerated. Off load heels with pillow.Hx prior amputation prior MRI and plain films reviewed wounds stable and local care being provided no abscess noted cont with dressings elevate heels with pillow turn q2h off load pressure air mattress will follow with recs thank you (14) Osteomyelitis (15) History of hypertension (16) Renal failure (ARF), acute on chronic Assessment & Plan: HD line removed 11/09 (17) Acute encephalopathy (18) Diabetes mellitus (19) Hypertension (20) Cholelithiasis Assessment & Plan: US reviewed exam benign asymptomatic cholelithiasis alk phos mild elevated lfts improved trend labs no acute surgical intervention planned Liver: Liver measures 14.8 cm. No intrahepatic bile duct dilation. Gallbladder: Small stone in the gallbladder. No significant gallbladder wall thickening or pericholecystic fluid. Negative sonographic Bianchi's sign. Common bile duct: Normal common bile duct measuring 4.5 mm. No stones. No dilation. Pancreas: Pancreas is not visualized due to overlying bowel gas. Kidneys: Right kidney measures 9.1 cm in length. No hydronephrosis or stone. Left kidney not visualized due to patient's body habitus. Spleen: Spleen measures 9.4 cm. No focal lesion. Aorta: Visualized portions of the aorta are grossly unremarkable. The mid and distal portions are obscured by bowel gas. Inferior vena cava: Unremarkable. Free fluid: No ascites. Tubes, lines and devices: Lyles catheter in a decompressed bladder. IMPRESSION: Small stone in the gallbladder. No significant gallbladder wall thickening or pericholecystic fluid. Negative sonographic Bianchi's sign. Mariusz Diehl Nov 21, 2019 13:01
[2019-11-21 16:00] VITALS: BP 104/44
[2019-11-21 20:00] VITALS: BP 110/49
[2019-11-21] MEDS: Miralax 17gm pkt NG SCH (21:00)
[2019-11-21] MEDS: Dyna-Hex 2% Top Sol 2oz TOPIC SCH (21:18)
[2019-11-22] VITALS: BP 123/55
[2019-11-22 04:00] VITALS: BP 107/67
[2019-11-22] MEDS: NovoLOG Insulin Flexpen SUBQ SCH ×3 (05:30→17:17)
[2019-11-22] MEDS: HydrALAZINE 50mg tab NG SCH (05:31)
[2019-11-22 06:57] LABS: HEMATOCRIT 28.1 % (42.0-52.0); HEMOGLOBIN 7.4 G/DL (14.2-18.0); MEAN CORPUSCULAR VOLUME 100 FL (80-99); PLATELET COUNT 149 K/UL (150-450); RED BLOOD COUNT 2.81 M/UL (4.70-6.10); RED CELL DISTRIBUTION WIDTH 15.6 % (11.6-14.8)
[2019-11-22 07:35] LABS: ALANINE AMINOTRANSFERASE 12 U/L (12-78); ALBUMIN 2.3 G/DL (3.4-5.0); ALBUMIN/GLOBULIN RATIO 0.5 (1.0-2.7); ALKALINE PHOSPHATASE 242 U/L (46-116); ANION GAP 6 mmol/L (5-15); ASPARTATE AMINO TRANSFERASE 18 U/L (15-37); BILIRUBIN,TOTAL 0.3 MG/DL (0.2-1.0); BLOOD UREA NITROGEN 91 mg/dL (7-18); CALCIUM 9.1 MG/DL (8.5-10.1); CARBON DIOXIDE 28 MMOL/L (21-32); CHLORIDE 103 MMOL/L (98-107); CREATININE 5.3 MG/DL (0.55-1.30); PHOSPHORUS 4.6 MG/DL (2.5-4.9); SODIUM 137 MMOL/L (136-145)
--- NOTE | 2019-11-22 07:54 | Hematology/Onc Progress Note ---
Assessment/Plan Assessment/Plan ASSESSMENT AND RECOMMENDATIONS: # Anemia of chronic disease due to underlying chronic medical issues, multifactorial --> Anemia w/u has been reviewed. --> no evidence of hemolysis is noted, peripheral smear has been reviewed --> hgb goal is >7, transfuse as needed --> currently remains stable, occult blood negative --> hgb 8.4->8.6->8.3->8->8.2->9.2-->9.2->8.9-->8.1-->8.7>9.4-->8.7-->8->7.8-> 7.5-->7.4 --> some blood loss due to hematuria after inflated reyes pulled 8/6 am --> EPOGEN Started # Thrombocytopenia is likely due to infection --> plt trend 180-->149 --> on abx as needed --> hep and hiv ordered #. Leukocytosis with underlying infectionv stress reaction HISTORY --> per id and better --> for infection, ABX ctx/vanc-->off --> wbc 10-->5.9 # Acute kidney injury r/o potential reversible component --> reviewed meds, those that are renally cleared removed --> as per renal recs, appreciated --> cr 3.5-->4.2-->3.4 --> Hd started and dw renal # Hypertension, essential --> sbp goal is <140, consider anti-htn as needed --> currently started on hyralazine 25mg po q6h prn sbp >140 # CHF - hx of CHf --> diuresis with lasix as needed --> cardiology recs appreciated prior adm #. Bilateral lower extremity amputee, metatarsal several years ago #. Dysphagia s/p peg --> peg pulled out and now with gtube #. Hyperkalemia -- kayxelate as needed #. Agitation requires restraints #. Dvt ppx scds --> apixaban->off for catheter placement 11/07 The time the note was entered does not necessarily correspond to the time the patient was seen. GREATLY APPRECIATE CONSULTATION. Subjective HEENT: Denies: no symptoms, eye pain, blurred vision, tearing, double vision, ear pain, ear discharge, nose pain, nose congestion, throat pain, throat swelling, mouth pain, mouth swelling, other Cardiovascular: Denies: no symptoms, chest pain, edema, irregular heart rate, lightheadedness, palpitations, syncope, other Respiratory: Denies: no symptoms, cough, shortness of breath, SOB with excertion, SOB at rest, sputum, wheezing, other Gastrointestinal/Abdominal: Denies: no symptoms, abdomen distended, abdominal pain, black stools, tarry stools, blood in stool, constipated, diarrhea, difficulty swallowing, nausea, poor appetite, poor fluid intake, rectal bleeding , vomiting, other Genitourinary: Denies: no symptoms, burning, discharge, frequency, flank pain, hematuria, incontinence, pain, urgency, other Neurologic/Psychiatric: Denies: no symptoms, anxiety, depressed, emotional problems, headache, numbness, paresthesia, pre-existing deficit, seizure, tingling, tremors, weakness, other Endocrine: Denies: no symptoms, excessive sweating, flushing, intolerance to cold, intolerance to heat, increased hunger, increased thirst, increased urine, unexplained weight gain, unexplained weight loss, other Allergies: Coded Allergies: PENICILLINS (Verified Allergy, Unknown, 10/25/19) tolerated Ceftriaxone Subjective 10/[address] Chang, to do best to avoid haldol, continue restraints, jag salas, on nc, feeling better 10/25 still with some agitation overnight, meds reviewed, jag rn, haldol given in AM 10/26 is on 2l nc, also is on restraints, no night sweats, no bleeding 10/27 reyes catheter has been removed by patient, and resinserted, bed sheets, with bright red blood on exam 10/28 labs are noted, no bleeding, cr is worse, seen by renal, remains edematous 11/04 no major changes, hd as per renal, recs are noted, labs reviewed, pending neuro eval 11/05 is on bipap with restraints, no major changes, no bleeding, labs noted 11/06 remains agitated, is off eliquis for catheter placement for tuesday 11/07 on bipap, remains agitated, jag salas, procedure today 11/08 remains confused, no bleeding, meds noted, hgb 8.9, may need peg 11/09 on bipap, remains confused in restraints, jag rn, hgb lower 11/10 no new events, overnight bipap, now 2oxygen nc, cbc is pending, right chest pc 11/11 ngtube was pulled out, jag rn, on nc, holding dc, restraints needed 11/13 gtube was pulled out and now with ngt, no bleeding, jag rn 11/14 ng was taken out again, and reinserted by night rn, jag rn in am 11/15 remains with ng now, for peg scheduled today, labs noted, afebrile 11/16 no bleeding noted, no hemolysis, hgb remains approx 8 11/17 remains altered, no bleeding jag Rn, no major changes 11/18 dc planning in progress, no major changes, no bleeding, no fc 11/20 on gtube feeds, is on oxygen, no bleeding, meds reviewed, h/h stable 11/21 incontinent, on 2l nc, with gtube on nepro no bleeding Objective Objective Current Medications Medications (Trade) Dose Ordered Sig/Cammy Route PRN Reason Start Time Stop Time Status Last Admin Dose Admin Acetaminophen (Tylenol) 650 mg Q6H PRN NG Pain 3-5 11/14/19 12:00 12/02/19 00:00 11/21/19 23:39 Amlodipine Besylate (Norvasc) 10 mg DAILY NG 11/15/19 09:00 11/25/19 08:59 11/21/19 08:28 Atorvastatin Calcium (Lipitor) 10 mg BEDTIME NG 11/14/19 21:00 01/21/20 20:59 11/21/19 21:19 Chlorhexidine Gluconate (Yi-Hex 2%) 1 applic DAILY@1999 TOPIC 11/14/19 20:00 01/31/20 19:59 11/21/19 21:18 Clonidine HCl (Catapres TTS-1) 1 patch QWEEK TDERMAL 11/19/19 19:00 02/10/20 18:59 11/19/19 18:16 Dextrose (Dextrose 50%) 25 ml Q30M PRN IV Hypoglycemia 11/14/19 10:45 01/20/20 21:44 Dextrose (Dextrose 50%) 50 ml Q30M PRN IV Hypoglycemia 11/14/19 10:45 01/20/20 21:44 Docusate Sodium (Colace) 100 mg THREE TIMES A DAY NG 11/14/19 13:00 12/02/19 17:59 11/21/19 08:29 Epoetin William (Epoetin William(ESRD on dialysis)) 10,000 unit SUBQ 11/22/19 21:00 02/20/20 20:59 Haloperidol (Haldol) 5 mg Q12H PRN NG Agitation 11/14/19 12:00 12/26/19 00:00 Haloperidol Lactate (Haldol) 5 mg Q6H PRN IM Agitation 11/14/19 12:00 12/10/19 00:00 11/18/19 00:28 Hydralazine HCl (Apresoline) 25 mg Q8HR NG 11/17/19 14:00 02/15/20 13:59 11/21/19 22:50 Insulin Aspart (NovoLOG) Q6HR SUBQ 11/14/19 12:00 01/31/20 06:29 11/22/19 05:30 Lansoprazole (Prevacid) 30 mg DAILY NG 11/15/19 09:00 12/11/19 08:59 11/21/19 08:27 Levothyroxine Sodium (Synthroid) 75 mcg DAILY@0630 NG 11/15/19 06:30 12/04/19 06:29 11/22/19 05:31 Lisinopril (PriniviL) 20 mg Q12HR NG 11/15/19 21:00 12/13/19 20:59 11/17/19 20:42 Metoprolol Tartrate (Lopressor) 50 mg Q12HR NG 11/15/19 09:00 02/13/20 08:59 11/21/19 08:28 Neomycin/ Polymyxin/ Bacitracin (Neomycin/Polymy/ Bacitr Oint) 1 applic DAILY TOPIC 11/18/19 14:00 02/16/20 13:59 11/21/19 08:30 Polyethylene Glycol (Miralax) 17 gm BEDTIME NG 11/14/19 21:00 12/01/19 20:59 11/20/19 20:45 Sennosides (Senokot) 8.6 mg HSPRN PRN NG Constipation 11/14/19 12:00 12/14/19 11:59 Last 24 Hour Vital Signs Date Time Temp Pulse Resp B/P (MAP) Pulse Ox O2 Delivery O2 Flow Rate FiO2 11/22/19 05:31 110/58 11/22/19 04:00 97.9 79 19 107/67 (80) 99 11/22/19 00:00 97.9 66 19 123/55 (77) 99 11/21/19 22:50 125/70 11/21/19 21:00 109/49 11/21/19 21:00 57 109/47 11/21/19 21:00 Nasal Cannula 2.0 11/21/19 20:00 97.3 57 19 110/49 (69) 99 11/21/19 18:42 99 Nasal Cannula 2.0 28 11/21/19 16:00 97.1 55 19 104/44 (64) 100 11/21/19 13:17 102/37 11/21/19 12:00 97.3 55 18 102/37 (58) 100 11/21/19 09:00 Nasal Cannula 2.0 11/21/19 08:58 97.4 11/21/19 08:29 117/47 11/21/19 08:28 78 117/47 11/21/19 08:28 78 117/47 11/21/19 08:00 98.9 78 18 117/47 (70) 100 11/21/19 07:00 100 Nasal Cannula 2.0 28 11/21/19 06:00 110/59 11/21/19 04:00 97.4 72 19 110/60 (77) 98 11/21/19 00:00 97.3 71 19 113/52 (72) 98 11/20/19 22:00 110/49 11/20/19 21:00 Nasal Cannula 2.0 11/20/19 20:46 70 111/48 11/20/19 20:45 111/48 11/20/19 20:00 98.1 67 19 112/50 (70) 96 11/20/19 16:00 98.0 70 19 112/48 (69) 100 11/20/19 13:54 128/46 11/20/19 12:00 98.1 70 20 128/46 (73) 99 11/20/19 09:00 Nasal Cannula 2.0 11/20/19 08:46 57 111/44 11/20/19 08:46 57 111/44 11/20/19 08:40 111/44 11/20/19 08:00 97.7 57 18 111/44 (66) 99 Intake and Output 11/21/19 11/22/19 19:00 07:00 Intake Total 530 ml 530 ml Balance 530 ml 530 ml Free Water 90 ml 90 ml Tube Feeding 440 ml 440 ml # Bowel Movements 2 Labs Test 11/20/19 09:45 11/20/19 11:12 11/21/19 05:18 11/21/19 11:55 White Blood Count 7.5 K/UL (4.8-10.8) Red Blood Count 2.57 M/UL (4.70-6.10) Hemoglobin 7.5 G/DL (14.2-18.0) Hematocrit 25.3 % (42.0-52.0) Mean Corpuscular Volume 99 FL (80-99) Mean Corpuscular Hemoglobin 29.2 PG (27.0-31.0) Mean Corpuscular Hemoglobin Concent 29.6 G/DL (32.0-36.0) Red Cell Distribution Width 15.8 % (11.6-14.8) Platelet Count 179 K/UL (150-450) Mean Platelet Volume 8.0 FL (6.5-10.1) Neutrophils (%) (Auto) % (45.0-75.0) Lymphocytes (%) (Auto) % (20.0-45.0) Monocytes (%) (Auto) % (1.0-10.0) Eosinophils (%) (Auto) % (0.0-3.0) Basophils (%) (Auto) % (0.0-2.0) Differential Total Cells Counted 100 Neutrophils % (Manual) 77 % (45-75) Lymphocytes % (Manual) 14 % (20-45) Monocytes % (Manual) 6 % (1-10) Eosinophils % (Manual) 3 % (0-3) Basophils % (Manual) 0 % (0-2) Band Neutrophils 0 % (0-8) Platelet Estimate Adequate Platelet Morphology Normal Hypochromasia 3+ Anisocytosis 1+ Sodium Level 137 MMOL/L (136-145) Potassium Level 4.7 MMOL/L (3.5-5.1) Chloride Level 104 MMOL/L (98-107) Carbon Dioxide Level 30 MMOL/L (21-32) Anion Gap 3 mmol/L (5-15) Blood Urea Nitrogen 68 mg/dL (7-18) Creatinine 3.4 MG/DL (0.55-1.30) Estimat Glomerular Filtration Rate 17.5 mL/min (>60) Glucose Level 172 MG/DL (74-106) Calcium Level 8.6 MG/DL (8.5-10.1) Phosphorus Level 3.9 MG/DL (2.5-4.9) Magnesium Level 2.9 MG/DL (1.8-2.4) Total Bilirubin 0.3 MG/DL (0.2-1.0) Aspartate Amino Transf (AST/SGOT) 17 U/L (15-37) Alanine Aminotransferase (ALT/SGPT) 13 U/L (12-78) Alkaline Phosphatase 169 U/L (46-116) C-Reactive Protein, Quantitative 8.6 mg/dL (0.00-0.90) Pro-B-Type Natriuretic Peptide 42544 pg/mL (0-125) Total Protein 5.9 G/DL (6.4-8.2) Albumin 2.1 G/DL (3.4-5.0) Globulin 3.8 g/dL Albumin/Globulin Ratio 0.6 (1.0-2.7) POC Whole Blood Glucose 178 MG/DL (74-106) 156 MG/DL (74-106) 188 MG/DL (74-106) Test 11/22/19 06:00 White Blood Count 8.0 K/UL (4.8-10.8) Red Blood Count 2.81 M/UL (4.70-6.10) Hemoglobin 7.4 G/DL (14.2-18.0) Hematocrit 28.1 % (42.0-52.0) Mean Corpuscular Volume 100 FL (80-99) Mean Corpuscular Hemoglobin 26.3 PG (27.0-31.0) Mean Corpuscular Hemoglobin Concent 26.3 G/DL (32.0-36.0) Red Cell Distribution Width 15.6 % (11.6-14.8) Platelet Count 149 K/UL (150-450) Mean Platelet Volume 6.4 FL (6.5-10.1) Neutrophils (%) (Auto) % (45.0-75.0) Lymphocytes (%) (Auto) % (20.0-45.0) Monocytes (%) (Auto) % (1.0-10.0) Eosinophils (%) (Auto) % (0.0-3.0) Basophils (%) (Auto) % (0.0-2.0) Sodium Level 137 MMOL/L (136-145) Potassium Level 5.0 MMOL/L (3.5-5.1) Chloride Level 103 MMOL/L (98-107) Carbon Dioxide Level 28 MMOL/L (21-32) Anion Gap 6 mmol/L (5-15) Blood Urea Nitrogen 91 mg/dL (7-18) Creatinine 5.3 MG/DL (0.55-1.30) Estimat Glomerular Filtration Rate 10.5 mL/min (>60) Glucose Level 183 MG/DL (74-106) Calcium Level 9.1 MG/DL (8.5-10.1) Phosphorus Level 4.6 MG/DL (2.5-4.9) Magnesium Level 3.4 MG/DL (1.8-2.4) Total Bilirubin 0.3 MG/DL (0.2-1.0) Aspartate Amino Transf (AST/SGOT) 18 U/L (15-37) Alanine Aminotransferase (ALT/SGPT) 12 U/L (12-78) Alkaline Phosphatase 242 U/L (46-116) Total Protein 6.5 G/DL (6.4-8.2) Albumin 2.3 G/DL (3.4-5.0) Globulin 4.2 g/dL Albumin/Globulin Ratio 0.5 (1.0-2.7) Height (Feet): 5 Height (Inches): 5.00 Weight (Pounds): 189 Objective GENERAL: Not in acute distress. HEENT: ++ngt PULMONARY: Decreased breath sounds. ++ bipap CHEST: ++permacath CARDIOVASCULAR: Regular rate. No S3 or S4. ABDOMEN: Soft, nontender, nondistended.++peg EXTREMITIES: 1+ edema. No cyanosis, swelling, or edema. 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 Melvin Rizzo MD Nov 22, 2019 07:54
[2019-11-22 08:00] VITALS: BP 127/50
[2019-11-22] MEDS: Docusate 100mg/10ml Liq NG SCH ×3 (08:51→17:16)
[2019-11-22] MEDS: Lisinopril 20mg tab NG SCH ×2 (08:52→21:00)
[2019-11-22] MEDS: Metoprolol Tartrate 50mg tab NG SCH ×2 (08:52→21:00)
[2019-11-22] MEDS: Neosporin Oint 15gm TOPIC SCH (08:53)
--- NOTE | 2019-11-22 09:08 | General Progress Note ---
Assessment/Plan Problem List: (1) Hypertension ICD Codes: I10 - Essential (primary) hypertension SNOMED: 19230319 (2) Diabetes mellitus ICD Codes: E11.9 - Type 2 diabetes mellitus without complications SNOMED: 77713635 (3) Anemia ICD Codes: D64.9 - Anemia, unspecified SNOMED: 374909837 (4) Cholelithiasis ICD Codes: K80.20 - Calculus of gallbladder without cholecystitis without obstruction SNOMED: 491569086 (5) CHF (congestive heart failure) ICD Codes: I50.9 - Heart failure, unspecified SNOMED: 31218428 Status: stable, unchanged, other - Patient is scheduled to be discharged to [facility] where he can have both BiPAP and later in dialysis we will wait till on the condition required a full feeling SHAYLA OCASIO MD Assessment/Plan: s/p PEG GTF tolerated HD per nephrology dc planning per primary team will fu Subjective ROS Limited/Unobtainable: No Allergies: Coded Allergies: PENICILLINS (Verified Allergy, Unknown, 10/25/19) tolerated Ceftriaxone Objective Last 24 Hour Vital Signs Date Time Temp Pulse Resp B/P (MAP) Pulse Ox O2 Delivery O2 Flow Rate FiO2 11/22/19 08:52 70 127/50 11/22/19 08:52 127/50 11/22/19 08:52 70 127/50 11/22/19 05:31 110/58 11/22/19 04:00 97.9 79 19 107/67 (80) 99 11/22/19 00:00 97.9 66 19 123/55 (77) 99 11/21/19 22:50 125/70 11/21/19 21:00 109/49 11/21/19 21:00 57 109/47 11/21/19 21:00 Nasal Cannula 2.0 11/21/19 20:00 97.3 57 19 110/49 (69) 99 11/21/19 18:42 99 Nasal Cannula 2.0 28 11/21/19 16:00 97.1 55 19 104/44 (64) 100 11/21/19 13:17 102/37 11/21/19 12:00 97.3 55 18 102/37 (58) 100 Intake and Output 11/21/19 11/22/19 18:59 06:59 Intake Total 570 ml 530 ml Balance 570 ml 530 ml Free Water 90 ml 90 ml Tube Feeding 480 ml 440 ml # Bowel Movements 2 Laboratory Tests 11/21/19 11:55: POC Whole Blood Glucose 188H 11/22/19 06:00: White Blood Count 8.0, Red Blood Count 2.81L, Hemoglobin 7.4L, Hematocrit 28.1L , Mean Corpuscular Volume 100H, Mean Corpuscular Hemoglobin 26.3L, Mean Corpuscular Hemoglobin Concent 26.3L, Red Cell Distribution Width 15.6H, Platelet Count 149L, Mean Platelet Volume 6.4L, Neutrophils (%) (Auto) , Lymphocytes (%) (Auto) , Monocytes (%) (Auto) , Eosinophils (%) (Auto) , Basophils (%) (Auto) , Neutrophils % (Manual) [Pending], Lymphocytes % (Manual) [Pending], Platelet Estimate [Pending], Platelet Morphology [Pending], Sodium Level 137, Potassium Level 5.0, Chloride Level 103, Carbon Dioxide Level 28, Anion Gap 6, Blood Urea Nitrogen 91H, Creatinine 5.3H, Estimat Glomerular Filtration Rate 10.5, Glucose Level 183H, Calcium Level 9.1, Phosphorus Level 4.6, Magnesium Level 3.4H, Total Bilirubin 0.3, Aspartate Amino Transf (AST/SGOT ) 18, Alanine Aminotransferase (ALT/SGPT) 12, Alkaline Phosphatase 242H, Total Protein 6.5, Albumin 2.3L, Globulin 4.2, Albumin/Globulin Ratio 0.5L, HIV (1&2) Antibody Rapid Negative 11/22/19 09:00: Hepatitis A IgM Antibody [Pending], Hepatitis B Surface Antigen [Pending], Hepatitis B Core IgM Antibody [Pending], Hepatitis C Antibody [Pending] Height (Feet): 5 Height (Inches): 5.00 Weight (Pounds): 189 General Appearance: no apparent distress EENT: normal ENT inspection Neck: supple Cardiovascular: normal rate Respiratory/Chest: decreased breath sounds Abdomen: hypoactive bowel sounds Extremities: non-tender Lawrence Humphreys MD Nov 22, 2019 09:08
--- NOTE | 2019-11-22 09:24 | Pulmonology Progress Note ---
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 11/22/19 0924: Subjective ROS Limited/Unobtainable: No Allergies: Coded Allergies: PENICILLINS (Verified Allergy, Unknown, 10/25/19) tolerated Ceftriaxone Subjective on 2L O2 via NC BiPAP at HS s/p new PEG 11/16; tolerates GTF dc plan in progress Objective Last 24 Hour Vital Signs Date Time Temp Pulse Resp B/P (MAP) Pulse Ox O2 Delivery O2 Flow Rate FiO2 11/22/19 08:52 70 127/50 11/22/19 08:52 127/50 11/22/19 08:52 70 127/50 11/22/19 05:31 110/58 11/22/19 04:00 97.9 79 19 107/67 (80) 99 11/22/19 00:00 97.9 66 19 123/55 (77) 99 11/21/19 22:50 125/70 11/21/19 21:00 109/49 11/21/19 21:00 57 109/47 11/21/19 21:00 Nasal Cannula 2.0 11/21/19 20:00 97.3 57 19 110/49 (69) 99 11/21/19 18:42 99 Nasal Cannula 2.0 28 11/21/19 16:00 97.1 55 19 104/44 (64) 100 11/21/19 13:17 102/37 11/21/19 12:00 97.3 55 18 102/37 (58) 100 Intake and Output 11/21/19 11/22/19 19:00 07:00 Intake Total 530 ml 530 ml Balance 530 ml 530 ml Free Water 90 ml 90 ml Tube Feeding 440 ml 440 ml # Bowel Movements 2 Objective General Appearance: no apparent distress, Macedonian speaking awake, more alert and responsive male, Lines, tubes and drains: R chest tunneled HD catheter , R femoral temporal HD catheter HEENT: normocephalic, atraumatic, anicteric, mucous membranes moist, O2 2 L via NC, Respiratory/Chest: few scattered crackles, no exp wheezing, Cardiovascular/Chest: normal rate, SR Abdomen: normal bowel sounds, non tender, soft , abd binder, GT with TF Extremities: partially amputated BL foot/metatarsal Skin Exam: warm/dry Neurologic: abnormal gait, awake, more responsive responsive, Musculoskeletal: atrophy BLE Laboratory Tests 11/21/19 11:55: POC Whole Blood Glucose 188H 11/22/19 06:00: White Blood Count 8.0, Red Blood Count 2.81L, Hemoglobin 7.4L, Hematocrit 28.1L , Mean Corpuscular Volume 100H, Mean Corpuscular Hemoglobin 26.3L, Mean Corpuscular Hemoglobin Concent 26.3L, Red Cell Distribution Width 15.6H, Platelet Count 149L, Mean Platelet Volume 6.4L, Neutrophils (%) (Auto) , Lymphocytes (%) (Auto) , Monocytes (%) (Auto) , Eosinophils (%) (Auto) , Basophils (%) (Auto) , Neutrophils % (Manual) [Pending], Lymphocytes % (Manual) [Pending], Platelet Estimate [Pending], Platelet Morphology [Pending], Sodium Level 137, Potassium Level 5.0, Chloride Level 103, Carbon Dioxide Level 28, Anion Gap 6, Blood Urea Nitrogen 91H, Creatinine 5.3H, Estimat Glomerular Filtration Rate 10.5, Glucose Level 183H, Calcium Level 9.1, Phosphorus Level 4.6, Magnesium Level 3.4H, Total Bilirubin 0.3, Aspartate Amino Transf (AST/SGOT ) 18, Alanine Aminotransferase (ALT/SGPT) 12, Alkaline Phosphatase 242H, Total Protein 6.5, Albumin 2.3L, Globulin 4.2, Albumin/Globulin Ratio 0.5L, HIV (1&2) Antibody Rapid Negative 11/22/19 09:00: Hepatitis A IgM Antibody [Pending], Hepatitis B Surface Antigen [Pending], Hepatitis B Core IgM Antibody [Pending], Hepatitis C Antibody [Pending] Current Medications Medications (Trade) Dose Ordered Sig/Cammy Route PRN Reason Start Time Stop Time Status Last Admin Dose Admin Acetaminophen (Tylenol) 650 mg Q6H PRN NG Pain 3-5 11/14/19 12:00 12/02/19 00:00 11/21/19 23:39 Amlodipine Besylate (Norvasc) 2.5 mg DAILY NG 11/22/19 09:00 11/25/19 08:59 11/22/19 08:52 Atorvastatin Calcium (Lipitor) 10 mg BEDTIME NG 11/14/19 21:00 01/21/20 20:59 11/21/19 21:19 Chlorhexidine Gluconate (Yi-Hex 2%) 1 applic DAILY@2000 TOPIC 11/14/19 20:00 01/31/20 19:59 11/21/19 21:18 Clonidine HCl (Catapres TTS-1) 1 patch QWEEK TDERMAL 11/19/19 19:00 02/10/20 18:59 11/19/19 18:16 Dextrose (Dextrose 50%) 25 ml Q30M PRN IV Hypoglycemia 11/14/19 10:45 01/20/20 21:44 Dextrose (Dextrose 50%) 50 ml Q30M PRN IV Hypoglycemia 11/14/19 10:45 01/20/20 21:44 Docusate Sodium (Colace) 100 mg THREE TIMES A DAY NG 11/14/19 13:00 12/02/19 17:59 11/22/19 08:51 Epoetin William (Epoetin William(ESRD on dialysis)) 10,000 unit FRI- SUBQ 11/22/19 21:00 02/20/20 20:59 Haloperidol (Haldol) 5 mg Q12H PRN NG Agitation 11/14/19 12:00 12/26/19 00:00 Haloperidol Lactate (Haldol) 5 mg Q6H PRN IM Agitation 11/14/19 12:00 12/10/19 00:00 11/18/19 00:28 Hydralazine HCl (Apresoline) 10 mg Q8HR NG 11/22/19 14:00 02/15/20 13:59 Insulin Aspart (NovoLOG) Q6HR SUBQ 11/14/19 12:00 01/31/20 06:29 11/22/19 05:30 Lansoprazole (Prevacid) 30 mg DAILY NG 11/15/19 09:00 12/11/19 08:59 11/22/19 08:52 Levothyroxine Sodium (Synthroid) 75 mcg DAILY@0630 NG 11/15/19 06:30 12/04/19 06:29 11/22/19 05:31 Lisinopril (PriniviL) 20 mg Q12HR NG 11/15/19 21:00 12/13/19 20:59 11/22/19 08:52 Metoprolol Tartrate (Lopressor) 50 mg Q12HR NG 11/15/19 09:00 02/13/20 08:59 11/22/19 08:52 Neomycin/ Polymyxin/ Bacitracin (Neomycin/Polymy/ Bacitr Oint) 1 applic DAILY TOPIC 11/18/19 14:00 02/16/20 13:59 11/22/19 08:53 Polyethylene Glycol (Miralax) 17 gm BEDTIME NG 11/14/19 21:00 12/01/19 20:59 11/20/19 20:45 Sennosides (Senokot) 8.6 mg HSPRN PRN NG Constipation 11/14/19 12:00 12/14/19 11:59 Assessment/Plan Assessment/Plan ASSESSMENT Acute hypoxemic hypercapnic respiratory failure requiring BiPAP Acute metabolic encephalopathy likely due to hypoglycemia Diabetes mellitus with initial hypoglycemia Probably pneumonia , s/p Rx Aspiration risk Dysphagia , s/p PEG , pulled out, s/p replacement of PEG 11/16 Acute kidney injury on chronic kidney disease, requiring start of HD 10/30 Severe anemia requiring blood transfusion Metabolic acidosis Electrolyte imbalance :hyponatremia, hyperkalemia HTN with HTN urgency Hematuria 2 to pt pulled off his Lyles catheter Possibly DAYANA PLAN OF CARE [facility] floor BiPAP at HS and prn currently on O2 2 L via NC titrate O2, pulm toilet patient likely has DAYANA. recommend sleep study as OP CXR 11/02 -> Stable slightly increased bilateral pleural effusions. 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 No hydronephrosis or nephrolithiasis. monitor volumes, renal parameters, lytes, correct as needed fup with nephro recs s/p placement of permanent HD catheter R chest 11/07 s/p removal of temporary HD catheter by surgeon ECHO with pEF 55-60% rate control with BB, now added, HR stable on chronic a/c , was on hold for PEG, resume Eliquis swallow eval with aspiration risk diet texture as per ST recs with strict asp precautions and assistance with meals NGT repeated BSSE 11/04 -> failed, recommended nonoral feeding started on NGT feeding strict aspiration precautions s/p PEG 11/08 asp precautions, GT site care, monitor tolerance of TF pulled out GT , needs replacement failed swallow eval 11/14 s/p PEG 11/16, tolerates GT feeding abd binder, AMS 10/[address] head negative, off sedatives ammonia WNL NGT inserted for meds as per nephro recs ( prior to G tube) NEED NEURO EVAL-per primary AMS improved to baseline psych follows HgA1c -6.1 hold oral anti-glycemic SSI prn sensitive initial AMS was most likely due to episode of hypoglycemia CT head NGT for acute ICP -done x 2 BP management with CCB BB and Hydralazine prn for BP spikes monitor HH with goal to keep Hgb above 7 stool OB anemia w/up noted , heme on board s/p 1 dose of Venofer on EPO hematuria resolved, Hgb at baseline GI prophayxlis supportive care diarrhea x 2 this am, dc lactulose for now WILL NEED TRILOGY VENT TO BE ARRANGED ON DISCHARGE ( pt needs BIPAP at HS and prn ) declined BiPAP prior for few nights, but was compliant prior , need reenforcement to use BiPAP at HS was informed 11/18 by CM that placement was found , however pt still in the hospital ok for dc form pulmonary standpoint BiPAP at HS and prn -12/5 FiO2 30% dc plan in progress /challenging placement case discussed and evaluated by supervising physician Jonathon Pabon MD 11/22/19 1723: Subjective Allergies: Coded Allergies: PENICILLINS (Verified Allergy, Unknown, 10/25/19) tolerated Ceftriaxone Assessment/Plan Assessment/Plan 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 Agree with above A&P as it reflects our joint deliberations. 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 Nov 22, 2019 09:24 Jonathon Pabon MD Nov 22, 2019 17:23
--- NOTE | 2019-11-22 10:18 | Nephrology Progress Note ---
Assessment/Plan Problem List: (1) Renal failure (ARF), acute on chronic (2) Metabolic acidosis (3) Electrolyte imbalance Assessment: Hyponatremia and hyperkalemia (4) Anemia (5) CHF (congestive heart failure) Assessment 79-year-old male is admitted for hypoglycemia Patient has renal failure which appears to be acute on chronic Hyperkalemia Hyponatremia CHF, pleural effusion, pneumonia Anemia Metabolic acidosis Hypothyroidism Plan November 21: Labs reviewed. Serum creatinine higher. Will dialyze today. Blood pressure medication adjusted. November 20: Last dialysis November 18. GT feeding in process. Check labs tomorrow. Dialysis as needed. November 19: Labs reviewed. Dialyzed yesterday. Stable. November 18: No labs done today. Due for dialysis today. Check labs tomorrow. November 17: Patient lethargic. Creatinine rising. We will attempt dialysis tomorrow. Labs and medications reviewed. November 16: Labs reviewed. Serum creatinine is slightly higher. Will adjust blood pressure medication. We will consider dialysis if further worsening of renal parameters ensued. November 15: Lab reviewed. Serum creatinine creeping up. We will continue to monitor renal parameters. Further rise in serum creatinine will again require dialysis. November 14: Lab reviewed. Serum creatinine danial lethargic. Is a NG tube. Doubt stone pass speech therapy for oral intake. We will continue to monitor renal parameters. Review mind altering medication and adjust as possible. Continue per consultants. November 13: Labs reviewed. Serum creatinine is leveling off. No dialysis needed at this time. Patient has NG tube. Due for swallowing study. We will continue to monitor renal parameters. He may not need any further dialysis treatment as the acute renal failure appears to have been resolved. Will adjust blood pressure medication. Continue per orders. November 12: Lab works are reviewed. Renal parameters stable. Dialysis as needed. Medication list reviewed. November 11: Patient last dialyzed November 09. Patient pulled out the GT tube. Slight bleeding from the site observed. GI to reinsert. Zestril added for BP control. Next hemodialysis tomorrow. November 10: Patient was dialyzed yesterday. Labs reviewed. Stable from renal standpoint of view. November 09: Patient due for dialysis today due to incomplete dialysis yesterday as a result of catheter malfunction. The femoral catheter was already removed this morning. Labs reviewed. Continue current management. November 08: Dialysis attempted through the permacath which was put in yesterday by IR. Due to high catheter pressure , dialysis was held and PTAse administered. Dialysis will be tried again tomorrow. Will check labs tomorrow. November 07: Patient due for tunneled catheter insertion today. Will order dialysis tomorrow. Continue to monitor renal parameters. Labs and medications reviewed. November 06: Patient due for tunnel catheter insertion November 07. Serum creatinine is rising. Labs reviewed. Continue per consultants. November 05: Last dialysis November 03. Eliquis on hold. Due tunneled catheter insertion on November 07. Labs are reviewed. Continue current management. November 04: Dialyzed yesterday. Due for insertion of tunneled catheter today. May need to hold Eliquis and reschedule catheter insertion on Friday. Will monitor renal parameters in the meantime. November 03: Dialyzed this morning. Stable from renal standpoint of view. Due for insertion of tunneled catheter tomorrow. November 02: Dialyzed yesterday. Will DC IV fluid. Dialysis tomorrow. Potassium supplement given. Per orders. November 01: Patient currently being dialyzed. Tolerating well. Labs will be reviewed. Continue per consultants. October 31: Patient was dialyzed yesterday. Clinically doing better. We will continue to monitor renal parameters. Dialysis as needed. October 30: Serum creatinine rising. Patient due to have a temporary dialysis catheter and due for dialysis today. Will continue to follow-up renal parameters. Patient remains full code. October 29: Serum creatinine rising. Serum creatinine 4.5 today. Calculated creatinine clearance is 12. Kidney ultrasound ordered yesterday results were reviewed. Patient appears to have acute renal failure due to underlying sepsis and nephrotoxic medications. Patient requires dialysis treatment. Ordered to obtain consent from the responsible libertarian. Will communicate with PMD and or he is coverage. October 28: Serum creatinine higher to 4.2 today. Blood pressure appears more stable. In view of worsening renal failure, will order stat kidney ultrasound and urine studies. Continue to monitor renal parameters. Patient is full code. Worsening renal parameters may lead to hemodialysis treatment. October 27: Patient pulled out the Lyles catheter. Serum creatinine went up to 3.8. Blood pressure somewhat low. Heart rate in 50s. Will discontinue Coreg. We will continue to monitor renal parameters. October 26: Serum creatinine lower again today. Will abort the dialysis plan. Continue per consultants. Continue to monitor renal parameters. Medication list reviewed. October 25: Clinically improving. Serum creatinine lower. Urine output increased. No dialysis planned at this time. Continue per consultants. October 24: Patient's respiratory status somewhat improved. Serum creatinine down to 3.9. Urinary output somewhat increased. Will hold placement of dialysis catheter at this time. Blood pressure medication adjusted. Continue to monitor renal parameters. Per orders. October 23: Patient remains on BiPAP. More Kayexalate ordered. Will consider hemodialysis to correct fluid overload and hyperkalemia and acidosis. Will discuss with PMD. Meanwhile IV Synthroid started. Discussed with RN Timothy Patient already transfused 1 unit for severe anemia previously Will initiate Epogen 10,000 units subcutaneously 1 dose of IV iron Venofer 200 g IV Kayexalate for hyperkalemia as needed 2D echocardiogram ordered, ejection fraction is reported normal Kidney ultrasound ordered: Kidneys: Right kidney measures 9.1 cm in length. No hydronephrosis or stone. Left kidney not visualized due to patient's body habitus. Avoid nephrotoxic's Monitor renal parameters Will hold insulin and hypoglycemic agents until hypoglycemia is reasonably resolved Subjective ROS Limited/Unobtainable: No Constitutional: Reports: malaise Objective Objective Last 24 Hour Vital Signs Date Time Temp Pulse Resp B/P (MAP) Pulse Ox O2 Delivery O2 Flow Rate FiO2 11/22/19 09:00 Nasal Cannula 2.0 11/22/19 08:52 70 127/50 11/22/19 08:52 127/50 11/22/19 08:52 70 127/50 11/22/19 08:00 98.1 70 19 127/50 (75) 99 11/22/19 05:31 110/58 11/22/19 04:00 97.9 79 19 107/67 (80) 99 11/22/19 00:00 97.9 66 19 123/55 (77) 99 11/21/19 22:50 125/70 11/21/19 21:00 109/49 11/21/19 21:00 57 109/47 11/21/19 21:00 Nasal Cannula 2.0 11/21/19 20:00 97.3 57 19 110/49 (69) 99 11/21/19 18:42 99 Nasal Cannula 2.0 28 11/21/19 16:00 97.1 55 19 104/44 (64) 100 8/30/20 13:17 102/37 11/21/19 12:00 97.3 55 18 102/37 (58) 100 Intake and Output 11/21/19 11/22/19 19:00 07:00 Intake Total 530 ml 530 ml Balance 530 ml 530 ml Free Water 90 ml 90 ml Tube Feeding 440 ml 440 ml # Bowel Movements 2 Laboratory Tests 11/21/19 11:55: POC Whole Blood Glucose 188H 11/22/19 06:00: White Blood Count 8.0, Red Blood Count 2.81L, Hemoglobin 7.4L, Hematocrit 28.1L , Mean Corpuscular Volume 100H, Mean Corpuscular Hemoglobin 26.3L, Mean Corpuscular Hemoglobin Concent 26.3L, Red Cell Distribution Width 15.6H, Platelet Count 149L, Mean Platelet Volume 6.4L, Neutrophils (%) (Auto) , Lymphocytes (%) (Auto) , Monocytes (%) (Auto) , Eosinophils (%) (Auto) , Basophils (%) (Auto) , Neutrophils % (Manual) [Pending], Lymphocytes % (Manual) [Pending], Platelet Estimate [Pending], Platelet Morphology [Pending], Sodium Level 137, Potassium Level 5.0, Chloride Level 103, Carbon Dioxide Level 28, Anion Gap 6, Blood Urea Nitrogen 91H, Creatinine 5.3H, Estimat Glomerular Filtration Rate 10.5, Glucose Level 183H, Calcium Level 9.1, Phosphorus Level 4.6, Magnesium Level 3.4H, Total Bilirubin 0.3, Aspartate Amino Transf (AST/SGOT ) 18, Alanine Aminotransferase (ALT/SGPT) 12, Alkaline Phosphatase 242H, Total Protein 6.5, Albumin 2.3L, Globulin 4.2, Albumin/Globulin Ratio 0.5L, HIV (1&2) Antibody Rapid Negative 11/22/19 09:00: Hepatitis A IgM Antibody [Pending], Hepatitis B Surface Antigen [Pending], Hepatitis B Core IgM Antibody [Pending], Hepatitis C Antibody [Pending] Height (Feet): 5 Height (Inches): 5.00 Weight (Pounds): 189 General Appearance: no apparent distress, lethargic Cardiovascular: normal rate Respiratory/Chest: decreased breath sounds Abdomen: other - PEG Objective No change Naveed Vanegas MD Nov 22, 2019 10:18
--- NOTE | 2019-11-22 11:36 | Infectious Diseases Prog Note ---
Assessment/Plan 79yo M from [facility] who p/w hypoglycemia and resp failure: Acute hypoxic respiratory failure, on BiPAP > 2L NC> RA > 2L NC Rapid COVID neg x2 (10/21, 10/24) Pneumonia on CXR, sp rx Volume overload 10/30 CXR: Slightly improved 10/25 CXR: Bilateral alveolar densities are unchanged 10/24 Sp cx normal resp demario (prelim) 10/23 CXR: 1. Small layering right pleural effusion, not significantly changed. The previously noted small left pleural effusion is not as evident.Prominent lung markings and haziness, right greater left, which may be related to pulmonary vascular congestion versus pneumonitis. This is not significantly changed.. Subsegmental atelectasis versus infiltrate in the medial left lung base, also not significantly changed. 10/21 CXR: 1. Small bilateral pleural effusions. Bibasilar atelectasis versus pneumonia. 2. Prominent lung markings and hazy opacities in right greater than left lungs may represent artifact versus pulmonary vasculature congestion and edema versus infectious/inflammatory process. 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 Afebrile No leukocytosis Anemia to 6.8, improved UA neg, UCx neg 10/21 BCx Neg ALEXIS on CKD, worsening --> now on HD HBsAg neg Plan: Cont to monitor off abx 11/07 Clindamycin x1 for catheter placement 10/31 SP CTX #7 10/26 SP vancomycin IV #5 Trend resp status Monitor CBC, CMP recommend ENT eval as outpt PEG care aspiration precautions discharge planning Thank you for this consult. [facility] will continue to follow. Subjective Allergies: Coded Allergies: PENICILLINS (Verified Allergy, Unknown, 10/25/19) tolerated Ceftriaxone afebrile at 2l NC no leukocytosis discharge planning Objective Last 24 Hour Vital Signs Date Time Temp Pulse Resp B/P (MAP) Pulse Ox O2 Delivery O2 Flow Rate FiO2 11/22/19 09:00 Nasal Cannula 2.0 11/22/19 08:52 70 127/50 11/22/19 08:52 127/50 11/22/19 08:52 70 127/50 11/22/19 08:00 98.1 70 19 127/50 (75) 99 11/22/19 05:31 110/58 11/22/19 04:00 97.9 79 19 107/67 (80) 99 11/22/19 00:00 97.9 66 19 123/55 (77) 99 11/21/19 22:50 125/70 11/21/19 21:00 109/49 11/21/19 21:00 57 109/47 11/21/19 21:00 Nasal Cannula 2.0 11/21/19 20:00 97.3 57 19 110/49 (69) 99 11/21/19 18:42 99 Nasal Cannula 2.0 28 11/21/19 16:00 97.1 55 19 104/44 (64) 100 11/21/19 13:17 102/37 11/21/19 12:00 97.3 55 18 102/37 (58) 100 Height (Feet): 5 Height (Inches): 5.00 Weight (Pounds): 189 Gen NAD Pulm: BL chest rise Abd: soft, NTND; abd binder in place Ext: No c/c/e, 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 skin: no rash Laboratory Tests Test 11/21/19 11:55 11/22/19 06:00 11/22/19 09:00 11/22/19 11:21 POC Whole Blood Glucose 188 MG/DL (74-106) H 189 MG/DL (74-106) H White Blood Count 8.0 K/UL (4.8-10.8) Red Blood Count 2.81 M/UL (4.70-6.10) L Hemoglobin 7.4 G/DL (14.2-18.0) L Hematocrit 28.1 % (42.0-52.0) L Mean Corpuscular Volume 100 FL (80-99) H Mean Corpuscular Hemoglobin 26.3 PG (27.0-31.0) L Mean Corpuscular Hemoglobin Concent 26.3 G/DL (32.0-36.0) L Red Cell Distribution Width 15.6 % (11.6-14.8) H Platelet Count 149 K/UL (150-450) L Mean Platelet Volume 6.4 FL (6.5-10.1) L Neutrophils (%) (Auto) % (45.0-75.0) Lymphocytes (%) (Auto) % (20.0-45.0) Monocytes (%) (Auto) % (1.0-10.0) Eosinophils (%) (Auto) % (0.0-3.0) Basophils (%) (Auto) % (0.0-2.0) Neutrophils % (Manual) Pending Lymphocytes % (Manual) Pending Platelet Estimate Pending Platelet Morphology Pending Sodium Level 137 MMOL/L (136-145) Potassium Level 5.0 MMOL/L (3.5-5.1) Chloride Level 103 MMOL/L (98-107) Carbon Dioxide Level 28 MMOL/L (21-32) Anion Gap 6 mmol/L (5-15) Blood Urea Nitrogen 91 mg/dL (7-18) H Creatinine 5.3 MG/DL (0.55-1.30) H Estimat Glomerular Filtration Rate 10.5 mL/min (>60) Glucose Level 183 MG/DL (74-106) H Calcium Level 9.1 MG/DL (8.5-10.1) Phosphorus Level 4.6 MG/DL (2.5-4.9) Magnesium Level 3.4 MG/DL (1.8-2.4) H Total Bilirubin 0.3 MG/DL (0.2-1.0) Aspartate Amino Transf (AST/SGOT) 18 U/L (15-37) Alanine Aminotransferase (ALT/SGPT) 12 U/L (12-78) Alkaline Phosphatase 242 U/L (46-116) H Total Protein 6.5 G/DL (6.4-8.2) Albumin 2.3 G/DL (3.4-5.0) L Globulin 4.2 g/dL Albumin/Globulin Ratio 0.5 (1.0-2.7) L HIV (1&2) Antibody Rapid Negative (NEGATIVE) Hepatitis A IgM Antibody Pending Hepatitis B Surface Antigen Pending Hepatitis B Core IgM Antibody Pending Hepatitis C Antibody Pending Current Medications Medications (Trade) Dose Ordered Sig/Cammy Route PRN Reason Start Time Stop Time Status Last Admin Dose Admin Acetaminophen (Tylenol) 650 mg Q6H PRN NG Pain 3-5 11/14/19 12:00 12/02/19 00:00 11/21/19 23:39 Amlodipine Besylate (Norvasc) 2.5 mg DAILY NG 11/22/19 09:00 11/25/19 08:59 11/22/19 08:52 Atorvastatin Calcium (Lipitor) 10 mg BEDTIME NG 11/14/19 21:00 01/21/20 20:59 11/21/19 21:19 Chlorhexidine Gluconate (Yi-Hex 2%) 1 applic DAILY@2000 TOPIC 11/14/19 20:00 01/31/20 19:59 11/21/19 21:18 Clonidine HCl (Catapres TTS-1) 1 patch QWEEK TDERMAL 11/19/19 19:00 02/10/20 18:59 11/19/19 18:16 Dextrose (Dextrose 50%) 25 ml Q30M PRN IV Hypoglycemia 11/14/19 10:45 01/20/20 21:44 Dextrose (Dextrose 50%) 50 ml Q30M PRN IV Hypoglycemia 11/14/19 10:45 01/20/20 21:44 Docusate Sodium (Colace) 100 mg THREE TIMES A DAY NG 11/14/19 13:00 12/02/19 17:59 11/22/19 08:51 Epoetin William (Epoetin William(ESRD on dialysis)) 10,000 unit FRI-FRI-FRI SUBQ 11/22/19 21:00 02/20/20 20:59 Haloperidol (Haldol) 5 mg Q12H PRN NG Agitation 11/14/19 12:00 12/26/19 00:00 Haloperidol Lactate (Haldol) 5 mg Q6H PRN IM Agitation 11/14/19 12:00 12/10/19 00:00 11/18/19 00:28 Hydralazine HCl (Apresoline) 10 mg Q8HR NG 11/22/19 14:00 02/15/20 13:59 Insulin Aspart (NovoLOG) Q6HR SUBQ 11/14/19 12:00 01/31/20 06:29 11/22/19 05:30 Lansoprazole (Prevacid) 30 mg DAILY NG 11/15/19 09:00 12/11/19 08:59 11/22/19 08:52 Levothyroxine Sodium (Synthroid) 75 mcg DAILY@0630 NG 11/15/19 06:30 12/04/19 06:29 11/22/19 05:31 Lisinopril (PriniviL) 20 mg Q12HR NG 11/15/19 21:00 12/13/19 20:59 11/22/19 08:52 Metoprolol Tartrate (Lopressor) 50 mg Q12HR NG 11/15/19 09:00 02/13/20 08:59 11/22/19 08:52 Neomycin/ Polymyxin/ Bacitracin (Neomycin/Polymy/ Bacitr Oint) 1 applic DAILY TOPIC 11/18/19 14:00 02/16/20 13:59 11/22/19 08:53 Polyethylene Glycol (Miralax) 17 gm BEDTIME NG 11/14/19 21:00 12/01/19 20:59 11/20/19 20:45 Sennosides (Senokot) 8.6 mg HSPRN PRN NG Constipation 11/14/19 12:00 12/14/19 11:59 Trinity Pan M.D. Nov 22, 2019 11:36
[2019-11-22 12:00] VITALS: BP 111/65
--- NOTE | 2019-11-22 12:40 | Surgery Progress Note ---
Surgery Progress Note Subjective Procedure Performed removal Right femoral temporary hemodialysis catheter Symptoms: improved, tolerating diet, passing flatus, BM Objective Last 24 Hour Vital Signs Date Time Temp Pulse Resp B/P (MAP) Pulse Ox O2 Delivery O2 Flow Rate FiO2 11/22/19 12:00 98.9 56 18 111/65 (80) 99 11/22/19 09:00 Nasal Cannula 2.0 11/22/19 08:52 70 127/50 11/22/19 08:52 127/50 11/22/19 08:52 70 127/50 11/22/19 08:00 98.1 70 19 127/50 (75) 99 11/22/19 05:31 110/58 11/22/19 04:00 97.9 79 19 107/67 (80) 99 11/22/19 00:00 97.9 66 19 123/55 (77) 99 11/21/19 22:50 125/70 11/21/19 21:00 109/49 11/21/19 21:00 57 109/47 11/21/19 21:00 Nasal Cannula 2.0 11/21/19 20:00 97.3 57 19 110/49 (69) 99 11/21/19 18:42 99 Nasal Cannula 2.0 28 11/21/19 16:00 97.1 55 19 104/44 (64) 100 11/21/19 13:17 102/37 I&O Intake and Output 11/21/19 11/22/19 19:00 07:00 Intake Total 530 ml 530 ml Balance 530 ml 530 ml Free Water 90 ml 90 ml Tube Feeding 440 ml 440 ml # Bowel Movements 2 Dressing: saturated Cardiovascular: RSR Respiratory: decreased breath sounds Abdomen: soft, distended, non-tender, present bowel sounds Extremities: edema, no tenderness, no cyanosis Laboratory Tests Test 11/22/19 06:00 11/22/19 09:00 11/22/19 11:21 White Blood Count 8.0 K/UL (4.8-10.8) Red Blood Count 2.81 M/UL (4.70-6.10) L Hemoglobin 7.4 G/DL (14.2-18.0) L Hematocrit 28.1 % (42.0-52.0) L Mean Corpuscular Volume 100 FL (80-99) H Mean Corpuscular Hemoglobin 26.3 PG (27.0-31.0) L Mean Corpuscular Hemoglobin Concent 26.3 G/DL (32.0-36.0) L Red Cell Distribution Width 15.6 % (11.6-14.8) H Platelet Count 149 K/UL (150-450) L Mean Platelet Volume 6.4 FL (6.5-10.1) L Neutrophils (%) (Auto) % (45.0-75.0) Lymphocytes (%) (Auto) % (20.0-45.0) Monocytes (%) (Auto) % (1.0-10.0) Eosinophils (%) (Auto) % (0.0-3.0) Basophils (%) (Auto) % (0.0-2.0) Differential Total Cells Counted 100 Neutrophils % (Manual) 75 % (45-75) Lymphocytes % (Manual) 18 % (20-45) L Monocytes % (Manual) 5 % (1-10) Eosinophils % (Manual) 1 % (0-3) Basophils % (Manual) 1 % (0-2) Band Neutrophils 0 % (0-8) Platelet Estimate Decreased L Platelet Morphology Normal Hypochromasia 3+ Anisocytosis 1+ Sodium Level 137 MMOL/L (136-145) Potassium Level 5.0 MMOL/L (3.5-5.1) Chloride Level 103 MMOL/L (98-107) Carbon Dioxide Level 28 MMOL/L (21-32) Anion Gap 6 mmol/L (5-15) Blood Urea Nitrogen 91 mg/dL (7-18) H Creatinine 5.3 MG/DL (0.55-1.30) H Estimat Glomerular Filtration Rate 10.5 mL/min (>60) Glucose Level 183 MG/DL (74-106) H Calcium Level 9.1 MG/DL (8.5-10.1) Phosphorus Level 4.6 MG/DL (2.5-4.9) Magnesium Level 3.4 MG/DL (1.8-2.4) H Total Bilirubin 0.3 MG/DL (0.2-1.0) Aspartate Amino Transf (AST/SGOT) 18 U/L (15-37) Alanine Aminotransferase (ALT/SGPT) 12 U/L (12-78) Alkaline Phosphatase 242 U/L (46-116) H Total Protein 6.5 G/DL (6.4-8.2) Albumin 2.3 G/DL (3.4-5.0) L Globulin 4.2 g/dL Albumin/Globulin Ratio 0.5 (1.0-2.7) L HIV (1&2) Antibody Rapid Negative (NEGATIVE) Hepatitis A IgM Antibody Pending Hepatitis B Surface Antigen Pending Hepatitis B Core IgM Antibody Pending Hepatitis C Antibody Pending POC Whole Blood Glucose 189 MG/DL (74-106) H Plan Problems: (1) Hypercarbia (2) Pleural effusion (3) Chronic renal failure (4) Anemia (5) CHF (congestive heart failure) (6) Bacteremia (7) Cellulitis Assessment & Plan: improving no active bleeding reyessheryl ley will monitor (8) Hypoglycemia (9) Hyponatremia (10) ATN (acute tubular necrosis) (11) Metabolic acidosis Assessment & Plan: DYSPHAGIA RISK FACTORS INCLUDE: RESPIRATORY WELL MULTIPLE MEDICAL COMPLICATIONS, SHORTNESS OF BREATH, WORK OF BREATHING, DECREASED MENTATION, HX OF SUBOPTIMAL P.O. INTAKE, LETHARGY (DIFFICULTY SUSTAINING WAKEFULNESS) , CLINICAL HISTORY: AMS CURRENT CXR: Indication: Shortness of breath Technique: One view of the chest Comparison: 10/31/2019 Findings: Interim placement of nasogastric tube, tip projected at the level of the gastric body. This was also demonstrated on 11/01/2019 abdominal radiograph. Bilateral hazy opacity appears similar to or perhaps slightly increased from the prior study. Generalized mild interstitial prominence persists. Impression: Stable slightly increased bilateral pleural effusions Otherwise little overlocker 3 days INITIAL IMPRESSION: PATIENT POSITIONED AT 90 DEGREES UPRIGHT IN BED AND PRESENTED WITH P.O. TRIALS OF ICE CHIPS, ONE AT A TIME. LINGUAL SIZE PRESENTS ENLARGED. PATIENT PERSISTENTLY MOUTH BREATHING. WHEN PRESENTED WITH ONE ICE CHIP HE MANIPULATED IT, ALLOWED IT TO MELT ON HIS TONGUE AND AFTER A MODERATE DELAY, HE SWALLOWED. RR CHANGES FROM 18 BREATHS PER MINUTE TO 25 BREATHS PER MINUTE ALONG WITH WORK OF BREATHING. WHEN ASKED TO SAY "AH" POST SWALLOW, PATIENTS VOCAL QUALITY WAS WET/GURGLY. HYOLARYNGEAL EXCURSION PRESENTED MODERATELY DECREASED. PATIENT ESSENTIALLY NON/VERBAL THIS AFTERNOON. HIGH ASPIRATION RISK. HIS RISK FOR CONSISTENT/STABLE/SUFFICIENT P.O. INTAKE TO SUPPORT NUTRITION/HYDRATION NEEDS. RECOMMENDATIONS: 1. CONTINUE NON/ORAL FEEDING MANAGEMENT PRIMARY SOURCE OF NUTRITION/ HYDRATION/MEDICATION 2. NPO STATUS 3. RE/ORDER SWALLOW EVALUATION IF/WHEN PATIENTS MEDICAL STATUS STABILIZES. DAILY ESTIMATED NEEDS: Needs based on Critical care, wound 71kg abw 22-28 kcals/kg 9908-3075 total kcals 1.25-2 g protein/kg 88-154 g total protein 25-30 mL/kg 0664-8125 total fluid mLs NUTRITION DIAGNOSIS: 1) Swallowing difficulty r/t respiratory status as evidenced by pt is vent dep via trach, GT dep. 2) Increased kcal/prot needs R/T wound healing as evidenced by pt admitted w/ multiple wounds including full thickness x3, refer to wound care eval for full report. CURRENT TF:NPO ENTERAL NUTRITION RECOMMENDATIONS: Glucerna 1.2 @60ml/hr x24 hrs + Prosource 1pkt QD to provide 1440ml, 1728 kcal, 86g +11g pro, 1159ml free H2o - As medically appropriate, initiate Glucerna 1.2 @ 30ml/hr x 6hrs - Advance 10ml q 4-6 hrs as tolerated to goal rate - Add Prosource 1pkt daily to better meet protein needs - HOB over 30 degrees/ water flush 120ml q 4hrs PARENTERAL NUTRITION RECOMMENDATIONS TPN Comment: Rec TPN to meet est needs with anticipated prolonged NPO status ADDITIONAL RECOMMENDATIONS: 1) Calibrated bedscale wt 2) Rec adding D5 IVF while pt is NPO to prevent hypoglycemia 3) Monitor lytes w/ TF, replete as needed 4) Wound healing: Vit C 250mg BID + SILVESTRE BID w/ TF orders 5) Monitor need for NISS w/ TF: h/o DM 6) Consider TPN w/ anticipated prolonged NPO status Hardware: Nasogastric tube terminates in the region of the stomach. Distal portion of a central venous catheter terminates in the junction of the SVC and right atrium. Abdomen: Nonspecific partially visualized bowel gas pattern. No free air. Bones: Normal. Soft tissues: Normal. Visualized chest: Hazy and interstitial opacities and right greater than left lungs. Atherosclerotic calcifications of the aorta. Borderline size of the cardiac silhouette. IMPRESSION: Nasogastric tube terminates in the region of the stomach. (12) Pneumonia (13) Cellulitis of foot Assessment & Plan: Pt presented on admission with Bilat TMA. Pressure injuries both heels. Stable dry necrosis note to Plantar /lateral L TMA. L Heel is boggy with non- Blanchable erythema. . R Heel Boggy with Non-Blanchable erythema.Haemosiderin with Xerosis skin noted to R and L lower ext. Darker skin tone without erythema , induration or fluctuance Medial L Malleolus. Darker skin tone without erythema or induration noted to sacrum. Tx.Plan: Apply Moisture Barrier Paste to Sacrum. Cover with Optifoam drsg.Change every 3 days and prn. Apply Betadine to eschar plantar/lateral L TMA . Cover with Optifoam drsg. Change every 3 days and prn. Apply Cavilon Skin Barrier to both heels and Malleoli. Cover each site with Optifoam drsg. Change every 7days and prn. Reposition at least every 2hours or as tolerated. Off load heels with pillow.Hx prior amputation prior MRI and plain films reviewed wounds stable and local care being provided no abscess noted cont with dressings elevate heels with pillow turn q2h off load pressure air mattress will follow with recs thank you (14) Osteomyelitis (15) History of hypertension (16) Renal failure (ARF), acute on chronic Assessment & Plan: HD line removed 11/09 (17) Acute encephalopathy (18) Diabetes mellitus (19) Hypertension (20) Cholelithiasis Assessment & Plan: US reviewed exam benign asymptomatic cholelithiasis alk phos mild elevated lfts improved trend labs no acute surgical intervention planned Liver: Liver measures 14.8 cm. No intrahepatic bile duct dilation. Gallbladder: Small stone in the gallbladder. No significant gallbladder wall thickening or pericholecystic fluid. Negative sonographic Bianchi's sign. Common bile duct: Normal common bile duct measuring 4.5 mm. No stones. No dilation. Pancreas: Pancreas is not visualized due to overlying bowel gas. Kidneys: Right kidney measures 9.1 cm in length. No hydronephrosis or stone. Left kidney not visualized due to patient's body habitus. Spleen: Spleen measures 9.4 cm. No focal lesion. Aorta: Visualized portions of the aorta are grossly unremarkable. The mid and distal portions are obscured by bowel gas. Inferior vena cava: Unremarkable. Free fluid: No ascites. Tubes, lines and devices: Reyes catheter in a decompressed bladder. IMPRESSION: Small stone in the gallbladder. No significant gallbladder wall thickening or pericholecystic fluid. Negative sonographic Bianchi's sign. Benyamini,Mariusz Nov 22, 2019 12:40
[2019-11-22] MEDS: HydrALAZINE 10mg Tab NG SCH ×2 (13:10→22:00)
[2019-11-22 16:00] VITALS: BP 115/47
[2019-11-22] MEDS: Dyna-Hex 2% Top Sol 2oz TOPIC SCH (19:55)
[2019-11-22 20:00] VITALS: BP 132/51
[2019-11-22] MEDS: Miralax 17gm pkt NG SCH (21:00)
[2019-11-22] MEDS ORDERED: Epoetin Alfa-EPBX(ESRD on dialysis)10,000 unit/ml vial SUBQ SCH (21:00)
--- NOTE | 2019-11-22 21:37 | General Progress Note ---
Assessment/Plan Status: stable, unchanged, other - Patient is scheduled to be discharged to [facility] where he can have both BiPAP and later in dialysis we will wait till on the condition required a full feeling AYUSH CHANG MD Assessment/Plan: hospital course was marked by severe swepsis that required the use of broad spectrum anti biotics dialysis volume replacement and nutritional support, delivered by ng tube and later by gastrostomy tube Subjective Constitutional: Reports: no symptoms HEENT: Reports: no symptoms Cardiovascular: Reports: no symptoms, other - No chest pain shortness of breath palpitations dizziness Respiratory: Reports: other - No cough wheezing or expectoration Gastrointestinal/Abdominal: Reports: other - Has new G-tube inserted on November 16 tolerated feeding well and alert attempt to remove his G-tube Neurologic/Psychiatric: Reports: no symptoms, other - Patient is anxious because he does not understand why he was not discharged yet Allergies: Coded Allergies: PENICILLINS (Verified Allergy, Unknown, 10/25/19) tolerated Ceftriaxone Objective Last 24 Hour Vital Signs Date Time Temp Pulse Resp B/P (MAP) Pulse Ox O2 Delivery O2 Flow Rate FiO2 11/22/19 20:00 98.1 66 20 132/51 (78) 98 11/22/19 16:00 97.9 59 18 115/47 (69) 98 11/22/19 13:10 111/65 11/22/19 12:00 98.9 56 18 111/65 (80) 99 11/22/19 09:00 Nasal Cannula 2.0 11/22/19 08:52 70 127/50 11/22/19 08:52 127/50 11/22/19 08:52 70 127/50 11/22/19 08:00 98.1 70 19 127/50 (75) 99 11/22/19 05:31 110/58 11/22/19 04:00 97.9 79 19 107/67 (80) 99 11/22/19 00:00 97.9 66 19 123/55 (77) 99 11/21/19 22:50 125/70 Intake and Output 11/21/19 11/22/19 19:00 07:00 Intake Total 530 ml 530 ml Balance 530 ml 530 ml Free Water 90 ml 90 ml Tube Feeding 440 ml 440 ml # Bowel Movements 2 Laboratory Tests 11/22/19 06:00: White Blood Count 8.0, Red Blood Count 2.81L, Hemoglobin 7.4L, Hematocrit 28.1L , Mean Corpuscular Volume 100H, Mean Corpuscular Hemoglobin 26.3L, Mean Corpuscular Hemoglobin Concent 26.3L, Red Cell Distribution Width 15.6H, Platelet Count 149L, Mean Platelet Volume 6.4L, Neutrophils (%) (Auto) , Lymphocytes (%) (Auto) , Monocytes (%) (Auto) , Eosinophils (%) (Auto) , Basophils (%) (Auto) , Differential Total Cells Counted 100, Neutrophils % ( Manual) 75, Lymphocytes % (Manual) 18L, Monocytes % (Manual) 5, Eosinophils % ( Manual) 1, Basophils % (Manual) 1, Band Neutrophils 0, Platelet Estimate DecreasedL, Platelet Morphology Normal, Hypochromasia 3+, Anisocytosis 1+, Sodium Level 137, Potassium Level 5.0, Chloride Level 103, Carbon Dioxide Level 28, Anion Gap 6, Blood Urea Nitrogen 91H, Creatinine 5.3H, Estimat Glomerular Filtration Rate 10.5, Glucose Level 183H, Calcium Level 9.1, Phosphorus Level 4.6, Magnesium Level 3.4H, Total Bilirubin 0.3, Aspartate Amino Transf (AST/SGOT ) 18, Alanine Aminotransferase (ALT/SGPT) 12, Alkaline Phosphatase 242H, Total Protein 6.5, Albumin 2.3L, Globulin 4.2, Albumin/Globulin Ratio 0.5L, HIV (1&2) Antibody Rapid Negative 11/22/19 09:00: Hepatitis A IgM Antibody [Pending], Hepatitis B Surface Antigen [Pending], Hepatitis B Core IgM Antibody [Pending], Hepatitis C Antibody [Pending] 11/22/19 11:21: POC Whole Blood Glucose 189H 11/22/19 17:15: POC Whole Blood Glucose 180H Height (Feet): 5 Height (Inches): 5.00 Weight (Pounds): 189 General Appearance: no apparent distress, alert EENT: TMs normal, other - There are no sinus tenderness mucous membranes are moist Neck: non-tender, supple - No JVD no bruit carotic upstroke was 2+ Cardiovascular: normal rate, regular rhythm, no JVD Respiratory/Chest: lungs clear, normal breath sounds, no respiratory distress Abdomen: non tender, soft, no organomegaly, no mass Extremities: non-tender, other - No cyanosis clubbing or edema Neurologic: alert, oriented x 3, responsive Skin: other - Answer appropriately simple questions Ayush Chang MD Nov 22, 2019 21:37
--- NOTE | 2019-11-22 23:28 | Psych Consult Progress Note ---
Psychiatry Progress Note Psychiatry Progress Note Subjective the pts mental condition is unchanged confused dec agitations disoriented Medications Current Medications Medications (Trade) Dose Ordered Sig/Cammy Route PRN Reason Start Time Stop Time Status Last Admin Dose Admin Acetaminophen (Tylenol) 650 mg Q6H PRN NG Pain 3-5 11/14/19 12:00 12/02/19 00:00 11/21/19 23:39 Amlodipine Besylate (Norvasc) 2.5 mg DAILY NG 11/22/19 09:00 11/25/19 08:59 11/22/19 08:52 Atorvastatin Calcium (Lipitor) 10 mg BEDTIME NG 11/14/19 21:00 01/21/20 20:59 11/21/19 21:19 Chlorhexidine Gluconate (Yi-Hex 2%) 1 applic DAILY@1999 TOPIC 11/14/19 20:00 01/31/20 19:59 11/22/19 19:55 Clonidine HCl (Catapres TTS-1) 1 patch QWEEK TDERMAL 11/19/19 19:00 02/10/20 18:59 11/19/19 18:16 Dextrose (Dextrose 50%) 25 ml Q30M PRN IV Hypoglycemia 11/14/19 10:45 01/20/20 21:44 Dextrose (Dextrose 50%) 50 ml Q30M PRN IV Hypoglycemia 11/14/19 10:45 01/20/20 21:44 Docusate Sodium (Colace) 100 mg THREE TIMES A DAY NG 11/14/19 13:00 12/02/19 17:59 11/22/19 17:16 Epoetin William (Epoetin William(ESRD on dialysis)) 10,000 unit FRI-FRI-FRI SUBQ 11/22/19 21:00 02/20/20 20:59 Haloperidol (Haldol) 5 mg Q12H PRN NG Agitation 11/14/19 12:00 12/26/19 00:00 Haloperidol Lactate (Haldol) 5 mg Q6H PRN IM Agitation 11/14/19 12:00 12/10/19 00:00 11/18/19 00:28 Hydralazine HCl (Apresoline) 10 mg Q8HR NG 11/22/19 14:00 02/15/20 13:59 Insulin Aspart (NovoLOG) Q6HR SUBQ 11/14/19 12:00 11/9/20 06:29 11/22/19 17:17 Lansoprazole (Prevacid) 30 mg DAILY NG 11/15/19 09:00 12/11/19 08:59 11/22/19 08:52 Levothyroxine Sodium (Synthroid) 75 mcg DAILY@0630 NG 11/15/19 06:30 12/04/19 06:29 11/22/19 05:31 Lisinopril (PriniviL) 20 mg Q12HR NG 11/15/19 21:00 12/13/19 20:59 11/22/19 08:52 Metoprolol Tartrate (Lopressor) 50 mg Q12HR NG 11/15/19 09:00 02/13/20 08:59 11/22/19 08:52 Neomycin/ Polymyxin/ Bacitracin (Neomycin/Polymy/ Bacitr Oint) 1 applic DAILY TOPIC 11/18/19 14:00 02/16/20 13:59 11/22/19 08:53 Polyethylene Glycol (Miralax) 17 gm BEDTIME NG 11/14/19 21:00 12/01/19 20:59 11/20/19 20:45 Sennosides (Senokot) 8.6 mg HSPRN PRN NG Constipation 11/14/19 12:00 12/14/19 11:59 Neurological/Psychiatric: Reports: no symptoms, other - Patient is anxious because he does not understand why he was not discharged yet Allergies: Coded Allergies: PENICILLINS (Verified Allergy, Unknown, 10/25/19) tolerated Ceftriaxone Objective Data Height (Feet): 5 Height (Inches): 5.00 Weight (Pounds): 189 General Appearance: no apparent distress, alert Appearance: no abnormalities noted Behavior Mannerisms: good eye contact Mental Status Exam - Affect: blunted Mental Status Exam - Mood: anxious, agitated Mental Status Exam - Thought P: tangential, confusion Mental Status Exam - Thought C: delusions (specify) Mental Status Exam - Suicidal: not present Additional Comments: awake, confused, and disoriented. Mood is agitated. Affect is flat. Thought process, there is a paucity of thought content. Thought content, no suicidal or homicidal ideation. Cognition is impaired. Insight and judgment impaired. Assessment/Plan Status: stable, unchanged, other - Patient is scheduled to be discharged to [facility] where he can have both BiPAP and later in dialysis we will wait till on the condition required a full feeling Dada Foy MD, MD Nov 22, 2019 23:28
[2019-11-23] VITALS: BP 119/49
[2019-11-23] MEDS: NovoLOG Insulin Flexpen SUBQ SCH ×3 (01:36→12:13)
[2019-11-23 04:00] VITALS: BP 154/62
[2019-11-23] MEDS: HydrALAZINE 10mg Tab NG SCH ×2 (04:55→14:00)
[2019-11-23 06:23] LABS: HEMATOCRIT 25.5 % (42.0-52.0); HEMOGLOBIN 7.5 G/DL (14.2-18.0); MEAN CORPUSCULAR VOLUME 96 FL (80-99); PLATELET COUNT 274 K/UL (150-450); RED BLOOD COUNT 2.65 M/UL (4.70-6.10); RED CELL DISTRIBUTION WIDTH 14.7 % (11.6-14.8); WHITE BLOOD COUNT 8.1 K/UL (4.8-10.8)
--- NOTE | 2019-11-23 06:39 | General Progress Note ---
Assessment/Plan Problem List: (1) Hypertension ICD Codes: I10 - Essential (primary) hypertension SNOMED: 71026934 (2) Diabetes mellitus ICD Codes: E11.9 - Type 2 diabetes mellitus without complications SNOMED: 73034694 (3) Anemia ICD Codes: D64.9 - Anemia, unspecified SNOMED: 309682226 (4) Cholelithiasis ICD Codes: K80.20 - Calculus of gallbladder without cholecystitis without obstruction SNOMED: 991470494 (5) CHF (congestive heart failure) ICD Codes: I50.9 - Heart failure, unspecified SNOMED: 64061925 Status: stable, unchanged, other - Patient is scheduled to be discharged to [facility] where he can have both BiPAP and later in dialysis we will wait till on the condition required a full feeling SHAYLA OCASIO MD Assessment/Plan: s/p PEG GTF tolerated HD per nephrology dc planning per primary team will fu Subjective ROS Limited/Unobtainable: No Allergies: Coded Allergies: PENICILLINS (Verified Allergy, Unknown, 10/25/19) tolerated Ceftriaxone Objective Last 24 Hour Vital Signs Date Time Temp Pulse Resp B/P (MAP) Pulse Ox O2 Delivery O2 Flow Rate FiO2 11/23/19 04:55 154/62 11/23/19 04:00 98.1 96 20 154/62 (92) 96 11/23/19 00:00 97.7 68 20 119/49 (72) 98 11/22/19 22:00 132/51 11/22/19 21:00 Nasal Cannula 2.0 11/22/19 21:00 132/51 11/22/19 21:00 66 132/51 11/22/19 20:00 98.1 66 20 132/51 (78) 98 11/22/19 20:00 96 Nasal Cannula 2.0 28 11/22/19 16:00 97.9 59 18 115/47 (69) 98 11/22/19 13:10 111/65 11/22/19 12:00 98.9 56 18 111/65 (80) 99 11/22/19 09:00 Nasal Cannula 2.0 11/22/19 08:52 70 127/50 11/22/19 08:52 127/50 11/22/19 08:52 70 127/50 11/22/19 08:00 98.1 70 19 127/50 (75) 99 Intake and Output 11/22/19 11/23/19 19:00 07:00 Intake Total 80 ml 300 ml Balance 80 ml 300 ml Free Water 100 ml Tube Feeding 80 ml 200 ml # Voids 1 Laboratory Tests 11/22/19 09:00: Hepatitis A IgM Antibody Negative, Hepatitis B Surface Antigen Negative, Hepatitis B Core IgM Antibody Negative, Hepatitis C Antibody <0.1 11/22/19 11:21: POC Whole Blood Glucose 189H 11/22/19 17:15: POC Whole Blood Glucose 180H 11/23/19 01:31: POC Whole Blood Glucose 146H 11/23/19 05:55: White Blood Count [Pending], Red Blood Count [Pending], Hemoglobin [Pending], Hematocrit [Pending], Mean Corpuscular Volume [Pending], Mean Corpuscular Hemoglobin [Pending], Mean Corpuscular Hemoglobin Concent [Pending], Red Cell Distribution Width [Pending], Platelet Count [Pending], Mean Platelet Volume [ Pending], Neutrophils (%) (Auto) [Pending], Lymphocytes (%) (Auto) [Pending], Monocytes (%) (Auto) [Pending], Eosinophils (%) (Auto) [Pending], Basophils (%) (Auto) [Pending] 11/23/19 06:03: POC Whole Blood Glucose [Pending] Height (Feet): 5 Height (Inches): 5.00 Weight (Pounds): 161 General Appearance: no apparent distress EENT: normal ENT inspection Neck: supple Cardiovascular: normal rate Respiratory/Chest: decreased breath sounds Abdomen: normal bowel sounds, non tender, soft Extremities: non-tender Lawrence Humphreys MD Nov 23, 2019 06:39
--- NOTE | 2019-11-23 07:35 | Hematology/Onc Progress Note ---
Assessment/Plan Assessment/Plan ASSESSMENT AND RECOMMENDATIONS: # Anemia of chronic disease due to underlying chronic medical issues, multifactorial --> Anemia w/u has been reviewed. --> no evidence of hemolysis is noted, peripheral smear has been reviewed --> hgb goal is >7, transfuse as needed --> currently remains stable, occult blood negative --> hgb 8.4->8.6->8.3->8->8.2->9.2-->9.2->8.9-->8.1-->8.7>9.4-->8.7-->8->7.8-> 7.5-->7.4-->7.5 --> some blood loss due to hematuria after inflated reyes pulled 8/6 am --> EPOGEN Started # Thrombocytopenia is likely due to infection --> plt trend 180-->149-->274 --> on abx as needed --> hep and hiv ordered #. Leukocytosis with underlying infectionv stress reaction HISTORY --> per id and better --> for infection, ABX ctx/vanc-->off --> wbc 10-->5.9 # Acute kidney injury r/o potential reversible component --> reviewed meds, those that are renally cleared removed --> as per renal recs, appreciated --> cr 3.5-->4.2-->3.4 --> Hd started and dw renal # Hypertension, essential --> sbp goal is <140, consider anti-htn as needed --> currently started on hyralazine 25mg po q6h prn sbp >140 # CHF - hx of CHf --> diuresis with lasix as needed --> cardiology recs appreciated prior adm #. Bilateral lower extremity amputee, metatarsal several years ago #. Dysphagia s/p peg --> peg pulled out and now with gtube #. Hyperkalemia -- kayxelate as needed #. Agitation requires restraints #. Dvt ppx scds --> apixaban->off for catheter placement 11/07 The time the note was entered does not necessarily correspond to the time the patient was seen. GREATLY APPRECIATE CONSULTATION. Subjective Allergies: Coded Allergies: PENICILLINS (Verified Allergy, Unknown, 10/25/19) tolerated Ceftriaxone Subjective 10/[address] Chang, to do best to avoid haldol, continue restraints, jag rn, on nc, feeling better 10/25 still with some agitation overnight, meds reviewed, jag rn, haldol given in AM 10/26 is on 2l nc, also is on restraints, no night sweats, no bleeding 10/27 reyes catheter has been removed by patient, and resinserted, bed sheets, with bright red blood on exam 10/28 labs are noted, no bleeding, cr is worse, seen by renal, remains edematous 11/04 no major changes, hd as per renal, recs are noted, labs reviewed, pending neuro eval 11/05 is on bipap with restraints, no major changes, no bleeding, labs noted 11/06 remains agitated, is off eliquis for catheter placement for tuesday 11/07 on bipap, remains agitated, jag salas, procedure today 11/08 remains confused, no bleeding, meds noted, hgb 8.9, may need peg 11/09 on bipap, remains confused in restraints, jag rn, hgb lower 11/10 no new events, overnight bipap, now 2oxygen nc, cbc is pending, right chest pc 11/11 ngtube was pulled out, jag rn, on nc, holding dc, restraints needed 11/13 gtube was pulled out and now with ngt, no bleeding, jag salas 11/14 ng was taken out again, and reinserted by ashely rn, jag salas in am 11/15 remains with ng now, for peg scheduled today, labs noted, afebrile 11/16 no bleeding noted, no hemolysis, hgb remains approx 8 11/17 remains altered, no bleeding jag Rn, no major changes 11/18 dc planning in progress, no major changes, no bleeding, no fc 11/20 on gtube feeds, is on oxygen, no bleeding, meds reviewed, h/h stable 11/21 incontinent, on 2l nc, with gtube on nepro no bleeding 11/22 is s/p peg, hd as per renal, labs noted, no bleeding, hgb 7.5 Objective Objective Current Medications Medications (Trade) Dose Ordered Sig/Cammy Route PRN Reason Start Time Stop Time Status Last Admin Dose Admin Acetaminophen (Tylenol) 650 mg Q6H PRN NG Pain 3-5 11/14/19 12:00 12/02/19 00:00 11/21/19 23:39 Amlodipine Besylate (Norvasc) 2.5 mg DAILY NG 11/22/19 09:00 11/25/19 08:59 11/22/19 08:52 Atorvastatin Calcium (Lipitor) 10 mg BEDTIME NG 11/14/19 21:00 01/21/20 20:59 11/21/19 21:19 Chlorhexidine Gluconate (Yi-Hex 2%) 1 applic DAILY@2000 TOPIC 11/14/19 20:00 01/31/20 19:59 11/22/19 19:55 Clonidine HCl (Catapres TTS-1) 1 patch QWEEK TDERMAL 11/19/19 19:00 02/10/20 18:59 11/19/19 18:16 Dextrose (Dextrose 50%) 25 ml Q30M PRN IV Hypoglycemia 11/14/19 10:45 01/20/20 21:44 Dextrose (Dextrose 50%) 50 ml Q30M PRN IV Hypoglycemia 11/14/19 10:45 01/20/20 21:44 Docusate Sodium (Colace) 100 mg THREE TIMES A DAY NG 11/14/19 13:00 12/02/19 17:59 11/22/19 17:16 Epoetin William (Epoetin William(ESRD on dialysis)) 10,000 unit -FRI SUBQ 11/22/19 21:00 02/20/20 20:59 11/23/19 01:35 Haloperidol (Haldol) 5 mg Q12H PRN NG Agitation 11/14/19 12:00 12/26/19 00:00 Haloperidol Lactate (Haldol) 5 mg Q6H PRN IM Agitation 11/14/19 12:00 12/10/19 00:00 11/18/19 00:28 Hydralazine HCl (Apresoline) 10 mg Q8HR NG 11/22/19 14:00 02/15/20 13:59 11/23/19 04:55 Insulin Aspart (NovoLOG) Q6HR SUBQ 11/14/19 12:00 01/31/20 06:29 11/23/19 06:06 Lansoprazole (Prevacid) 30 mg DAILY NG 11/15/19 09:00 12/11/19 08:59 11/22/19 08:52 Levothyroxine Sodium (Synthroid) 75 mcg DAILY@0630 NG 11/15/19 06:30 12/04/19 06:29 11/23/19 04:55 Lisinopril (PriniviL) 20 mg Q12HR NG 11/15/19 21:00 12/13/19 20:59 11/22/19 08:52 Metoprolol Tartrate (Lopressor) 50 mg Q12HR NG 11/15/19 09:00 02/13/20 08:59 11/22/19 08:52 Neomycin/ Polymyxin/ Bacitracin (Neomycin/Polymy/ Bacitr Oint) 1 applic DAILY TOPIC 11/18/19 14:00 02/16/20 13:59 11/22/19 08:53 Polyethylene Glycol (Miralax) 17 gm BEDTIME NG 11/14/19 21:00 12/01/19 20:59 11/20/19 20:45 Sennosides (Senokot) 8.6 mg HSPRN PRN NG Constipation 11/14/19 12:00 12/14/19 11:59 Last 24 Hour Vital Signs Date Time Temp Pulse Resp B/P (MAP) Pulse Ox O2 Delivery O2 Flow Rate FiO2 11/23/19 04:55 154/62 11/23/19 04:00 98.1 96 20 154/62 (92) 96 11/23/19 00:00 97.7 68 20 119/49 (72) 98 11/22/19 22:00 132/51 11/22/19 21:00 Nasal Cannula 2.0 11/22/19 21:00 132/51 11/22/19 21:00 66 132/51 11/22/19 20:00 98.1 66 20 132/51 (78) 98 11/22/19 20:00 96 Nasal Cannula 2.0 28 11/22/19 16:00 97.9 59 18 115/47 (69) 98 11/22/19 13:10 111/65 11/22/19 12:00 98.9 56 18 111/65 (80) 99 11/22/19 09:00 Nasal Cannula 2.0 11/22/19 08:52 70 127/50 11/22/19 08:52 127/50 11/22/19 08:52 70 127/50 11/22/19 08:00 98.1 70 19 127/50 (75) 99 11/22/19 05:31 110/58 11/22/19 04:00 97.9 79 19 107/67 (80) 99 11/22/19 00:00 97.9 66 19 123/55 (77) 99 11/21/19 22:50 125/70 11/21/19 21:00 109/49 11/21/19 21:00 57 109/47 11/21/19 21:00 Nasal Cannula 2.0 11/21/19 20:00 97.3 57 19 110/49 (69) 99 11/21/19 18:42 99 Nasal Cannula 2.0 28 11/21/19 16:00 97.1 55 19 104/44 (64) 100 11/21/19 13:17 102/37 11/21/19 12:00 97.3 55 18 102/37 (58) 100 11/21/19 09:00 Nasal Cannula 2.0 11/21/19 08:58 97.4 11/21/19 08:29 117/47 11/21/19 08:28 78 117/47 11/21/19 08:28 78 117/47 11/21/19 08:00 98.9 78 18 117/47 (70) 100 Intake and Output 11/22/19 11/23/19 19:00 07:00 Intake Total 80 ml 680 ml Balance 80 ml 680 ml Free Water 200 ml Tube Feeding 80 ml 480 ml # Voids 1 Labs Test 11/20/19 09:45 11/20/19 11:12 11/21/19 05:18 11/21/19 11:55 White Blood Count 7.5 K/UL (4.8-10.8) Red Blood Count 2.57 M/UL (4.70-6.10) Hemoglobin 7.5 G/DL (14.2-18.0) Hematocrit 25.3 % (42.0-52.0) Mean Corpuscular Volume 99 FL (80-99) Mean Corpuscular Hemoglobin 29.2 PG (27.0-31.0) Mean Corpuscular Hemoglobin Concent 29.6 G/DL (32.0-36.0) Red Cell Distribution Width 15.8 % (11.6-14.8) Platelet Count 179 K/UL (150-450) Mean Platelet Volume 8.0 FL (6.5-10.1) Neutrophils (%) (Auto) % (45.0-75.0) Lymphocytes (%) (Auto) % (20.0-45.0) Monocytes (%) (Auto) % (1.0-10.0) Eosinophils (%) (Auto) % (0.0-3.0) Basophils (%) (Auto) % (0.0-2.0) Differential Total Cells Counted 100 Neutrophils % (Manual) 77 % (45-75) Lymphocytes % (Manual) 14 % (20-45) Monocytes % (Manual) 6 % (1-10) Eosinophils % (Manual) 3 % (0-3) Basophils % (Manual) 0 % (0-2) Band Neutrophils 0 % (0-8) Platelet Estimate Adequate Platelet Morphology Normal Hypochromasia 3+ Anisocytosis 1+ Sodium Level 137 MMOL/L (136-145) Potassium Level 4.7 MMOL/L (3.5-5.1) Chloride Level 104 MMOL/L (98-107) Carbon Dioxide Level 30 MMOL/L (21-32) Anion Gap 3 mmol/L (5-15) Blood Urea Nitrogen 68 mg/dL (7-18) Creatinine 3.4 MG/DL (0.55-1.30) Estimat Glomerular Filtration Rate 17.5 mL/min (>60) Glucose Level 172 MG/DL (74-106) Calcium Level 8.6 MG/DL (8.5-10.1) Phosphorus Level 3.9 MG/DL (2.5-4.9) Magnesium Level 2.9 MG/DL (1.8-2.4) Total Bilirubin 0.3 MG/DL (0.2-1.0) Aspartate Amino Transf (AST/SGOT) 17 U/L (15-37) Alanine Aminotransferase (ALT/SGPT) 13 U/L (12-78) Alkaline Phosphatase 169 U/L (46-116) C-Reactive Protein, Quantitative 8.6 mg/dL (0.00-0.90) Pro-B-Type Natriuretic Peptide 47694 pg/mL (0-125) Total Protein 5.9 G/DL (6.4-8.2) Albumin 2.1 G/DL (3.4-5.0) Globulin 3.8 g/dL Albumin/Globulin Ratio 0.6 (1.0-2.7) POC Whole Blood Glucose 178 MG/DL (74-106) 156 MG/DL (74-106) 188 MG/DL (74-106) Test 11/22/19 06:00 11/22/19 09:00 11/22/19 11:21 11/22/19 17:15 White Blood Count 8.0 K/UL (4.8-10.8) Red Blood Count 2.81 M/UL (4.70-6.10) Hemoglobin 7.4 G/DL (14.2-18.0) Hematocrit 28.1 % (42.0-52.0) Mean Corpuscular Volume 100 FL (80-99) Mean Corpuscular Hemoglobin 26.3 PG (27.0-31.0) Mean Corpuscular Hemoglobin Concent 26.3 G/DL (32.0-36.0) Red Cell Distribution Width 15.6 % (11.6-14.8) Platelet Count 149 K/UL (150-450) Mean Platelet Volume 6.4 FL (6.5-10.1) Neutrophils (%) (Auto) % (45.0-75.0) Lymphocytes (%) (Auto) % (20.0-45.0) Monocytes (%) (Auto) % (1.0-10.0) Eosinophils (%) (Auto) % (0.0-3.0) Basophils (%) (Auto) % (0.0-2.0) Differential Total Cells Counted 100 Neutrophils % (Manual) 75 % (45-75) Lymphocytes % (Manual) 18 % (20-45) Monocytes % (Manual) 5 % (1-10) Eosinophils % (Manual) 1 % (0-3) Basophils % (Manual) 1 % (0-2) Band Neutrophils 0 % (0-8) Platelet Estimate Decreased Platelet Morphology Normal Hypochromasia 3+ Anisocytosis 1+ Sodium Level 137 MMOL/L (136-145) Potassium Level 5.0 MMOL/L (3.5-5.1) Chloride Level 103 MMOL/L (98-107) Carbon Dioxide Level 28 MMOL/L (21-32) Anion Gap 6 mmol/L (5-15) Blood Urea Nitrogen 91 mg/dL (7-18) Creatinine 5.3 MG/DL (0.55-1.30) Estimat Glomerular Filtration Rate 10.5 mL/min (>60) Glucose Level 183 MG/DL (74-106) Calcium Level 9.1 MG/DL (8.5-10.1) Phosphorus Level 4.6 MG/DL (2.5-4.9) Magnesium Level 3.4 MG/DL (1.8-2.4) Total Bilirubin 0.3 MG/DL (0.2-1.0) Aspartate Amino Transf (AST/SGOT) 18 U/L (15-37) Alanine Aminotransferase (ALT/SGPT) 12 U/L (12-78) Alkaline Phosphatase 242 U/L (46-116) Total Protein 6.5 G/DL (6.4-8.2) Albumin 2.3 G/DL (3.4-5.0) Globulin 4.2 g/dL Albumin/Globulin Ratio 0.5 (1.0-2.7) HIV (1&2) Antibody Rapid Negative (NEGATIVE) Hepatitis A IgM Antibody Negative (Negative) Hepatitis B Surface Antigen Negative (Negative) Hepatitis B Core IgM Antibody Negative (Negative) Hepatitis C Antibody <0.1 s/co ratio POC Whole Blood Glucose 189 MG/DL (74-106) 180 MG/DL (74-106) Test 11/23/19 01:31 11/23/19 05:55 11/23/19 06:03 POC Whole Blood Glucose 146 MG/DL (74-106) White Blood Count 8.1 K/UL (4.8-10.8) Red Blood Count 2.65 M/UL (4.70-6.10) Hemoglobin 7.5 G/DL (14.2-18.0) Hematocrit 25.5 % (42.0-52.0) Mean Corpuscular Volume 96 FL (80-99) Mean Corpuscular Hemoglobin 28.4 PG (27.0-31.0) Mean Corpuscular Hemoglobin Concent 29.5 G/DL (32.0-36.0) Red Cell Distribution Width 14.7 % (11.6-14.8) Platelet Count 274 K/UL (150-450) Mean Platelet Volume 7.5 FL (6.5-10.1) Neutrophils (%) (Auto) % (45.0-75.0) Lymphocytes (%) (Auto) % (20.0-45.0) Monocytes (%) (Auto) % (1.0-10.0) Eosinophils (%) (Auto) % (0.0-3.0) Basophils (%) (Auto) % (0.0-2.0) Height (Feet): 5 Height (Inches): 5.00 Weight (Pounds): 161 Objective GENERAL: Not in acute distress. HEENT: ++ngt PULMONARY: Decreased breath sounds. ++ bipap CHEST: ++permacath CARDIOVASCULAR: Regular rate. No S3 or S4. ABDOMEN: Soft, nontender, nondistended.++peg EXTREMITIES: 1+ edema. No cyanosis, swelling, or edema. 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 Melvin Rizzo MD Nov 23, 2019 07:35
[2019-11-23 08:00] VITALS: BP 136/67
[2019-11-23 08:30] LABS: ANION GAP 2 mmol/L (5-15); BLOOD UREA NITROGEN 49 mg/dL (7-18); CALCIUM 8.4 MG/DL (8.5-10.1); CARBON DIOXIDE 34 MMOL/L (21-32); CHLORIDE 96 MMOL/L (98-107); CREATININE 3.1 MG/DL (0.55-1.30); POTASSIUM 3.6 MMOL/L (3.5-5.1); SODIUM 132 MMOL/L (136-145)
[2019-11-23] MEDS: Lisinopril 20mg tab NG SCH (08:52)
[2019-11-23] MEDS: Neosporin Oint 15gm TOPIC SCH (08:52)
[2019-11-23] MEDS: Docusate 100mg/10ml Liq NG SCH ×2 (08:53→12:12)
[2019-11-23] MEDS: Metoprolol Tartrate 50mg tab NG SCH (08:53)
--- NOTE | 2019-11-23 10:19 | Pulmonology Progress Note ---
Reema Hanna INTERNET SALES MANAGER 11/23/19 1019: Subjective ROS Limited/Unobtainable: No Allergies: Coded Allergies: PENICILLINS (Verified Allergy, Unknown, 10/25/19) tolerated Ceftriaxone Subjective on 2L O2 via NC BiPAP at HS s/p new PEG 11/16; tolerates GTF dc plan in progress efusing BiPAP at night Objective Last 24 Hour Vital Signs Date Time Temp Pulse Resp B/P (MAP) Pulse Ox O2 Delivery O2 Flow Rate FiO2 11/23/19 09:00 Nasal Cannula 2.0 11/23/19 08:53 87 136/67 11/23/19 08:52 87 136/67 11/23/19 08:52 136/67 11/23/19 08:00 98.2 87 20 136/67 (90) 97 11/23/19 07:30 99 Nasal Cannula 2.0 28 11/23/19 04:55 154/62 11/23/19 04:00 98.1 96 20 154/62 (92) 96 11/23/19 00:00 97.7 68 20 119/49 (72) 98 11/22/19 22:00 132/51 11/22/19 21:00 Nasal Cannula 2.0 11/22/19 21:00 132/51 11/22/19 21:00 66 132/51 11/22/19 20:00 98.1 66 20 132/51 (78) 98 11/22/19 20:00 96 Nasal Cannula 2.0 28 11/22/19 16:00 97.9 59 18 115/47 (69) 98 11/22/19 13:10 111/65 11/22/19 12:00 98.9 56 18 111/65 (80) 99 Intake and Output 11/22/19 11/23/19 19:00 07:00 Intake Total 80 ml 680 ml Balance 80 ml 680 ml Free Water 200 ml Tube Feeding 80 ml 480 ml # Voids 1 Objective General Appearance: no apparent distress, French speaking awake, more alert and responsive male, Lines, tubes and drains: R chest tunneled HD catheter , R femoral temporal HD catheter HEENT: normocephalic, atraumatic, anicteric, mucous membranes moist, O2 2 L via NC, Respiratory/Chest: few scattered crackles, no exp wheezing, Cardiovascular/Chest: normal rate, SR Abdomen: normal bowel sounds, non tender, soft , abd binder, GT with TF Extremities: partially amputated BL foot/metatarsal Skin Exam: warm/dry Neurologic: abnormal gait, awake, more responsive responsive, Musculoskeletal: atrophy BLE Laboratory Tests 11/22/19 11:21: POC Whole Blood Glucose 189H 11/22/19 17:15: POC Whole Blood Glucose 180H 11/23/19 01:31: POC Whole Blood Glucose 146H 11/23/19 05:50: Sodium Level 132L, Potassium Level 3.6, Chloride Level 96L, Carbon Dioxide Level 34H, Anion Gap 2L, Blood Urea Nitrogen 49H, Creatinine 3.1H, Estimat Glomerular Filtration Rate 19.4, Glucose Level 165H, Calcium Level 8.4L 11/23/19 05:55: White Blood Count 8.1, Red Blood Count 2.65L, Hemoglobin 7.5L, Hematocrit 25.5L , Mean Corpuscular Volume 96, Mean Corpuscular Hemoglobin 28.4, Mean Corpuscular Hemoglobin Concent 29.5L, Red Cell Distribution Width 14.7, Platelet Count 274#, Mean Platelet Volume 7.5, Neutrophils (%) (Auto) , Lymphocytes (%) (Auto) , Monocytes (%) (Auto) , Eosinophils (%) (Auto) , Basophils (%) (Auto) , Differential Total Cells Counted 100, Neutrophils % ( Manual) 83H, Lymphocytes % (Manual) 8L, Monocytes % (Manual) 7, Eosinophils % ( Manual) 2, Basophils % (Manual) 0, Band Neutrophils 0, Platelet Estimate Adequate, Platelet Morphology Normal, Polychromasia 1+, Hypochromasia 1+, Anisocytosis 1+, Stomatocytes 1+ 11/23/19 06:03: POC Whole Blood Glucose [Pending] Current Medications Medications (Trade) Dose Ordered Sig/Cammy Route PRN Reason Start Time Stop Time Status Last Admin Dose Admin Acetaminophen (Tylenol) 650 mg Q6H PRN NG Pain 3-5 11/14/19 12:00 12/02/19 00:00 11/21/19 23:39 Amlodipine Besylate (Norvasc) 2.5 mg DAILY NG 11/22/19 09:00 11/25/19 08:59 11/23/19 08:52 Atorvastatin Calcium (Lipitor) 10 mg BEDTIME NG 11/14/19 21:00 01/21/20 20:59 11/21/19 21:19 Chlorhexidine Gluconate (Yi-Hex 2%) 1 applic DAILY@2000 TOPIC 11/14/19 20:00 01/31/20 19:59 11/22/19 19:55 Clonidine HCl (Catapres TTS-1) 1 patch QWEEK TDERMAL 11/19/19 19:00 02/10/20 18:59 11/19/19 18:16 Dextrose (Dextrose 50%) 25 ml Q30M PRN IV Hypoglycemia 11/14/19 10:45 01/20/20 21:44 Dextrose (Dextrose 50%) 50 ml Q30M PRN IV Hypoglycemia 11/14/19 10:45 01/20/20 21:44 Docusate Sodium (Colace) 100 mg THREE TIMES A DAY NG 11/14/19 13:00 12/02/19 17:59 11/23/19 08:53 Epoetin William (Epoetin William(ESRD on dialysis)) 10,000 unit SUBQ 11/22/19 21:00 02/20/20 20:59 11/23/19 01:35 Haloperidol (Haldol) 5 mg Q12H PRN NG Agitation 11/14/19 12:00 12/26/19 00:00 11/23/19 08:55 Haloperidol Lactate (Haldol) 5 mg Q6H PRN IM Agitation 11/14/19 12:00 12/10/19 00:00 11/18/19 00:28 Hydralazine HCl (Apresoline) 10 mg Q8HR NG 11/22/19 14:00 02/15/20 13:59 11/23/19 04:55 Insulin Aspart (NovoLOG) Q6HR SUBQ 11/14/19 12:00 01/31/20 06:29 11/23/19 06:06 Lansoprazole (Prevacid) 30 mg DAILY NG 11/15/19 09:00 12/11/19 08:59 11/23/19 08:53 Levothyroxine Sodium (Synthroid) 75 mcg DAILY@0630 NG 11/15/19 06:30 12/04/19 06:29 11/23/19 04:55 Lisinopril (PriniviL) 20 mg Q12HR NG 11/15/19 21:00 12/13/19 20:59 11/23/19 08:52 Metoprolol Tartrate (Lopressor) 50 mg Q12HR NG 11/15/19 09:00 02/13/20 08:59 11/23/19 08:53 Neomycin/ Polymyxin/ Bacitracin (Neomycin/Polymy/ Bacitr Oint) 1 applic DAILY TOPIC 11/18/19 14:00 02/16/20 13:59 11/23/19 08:52 Polyethylene Glycol (Miralax) 17 gm BEDTIME NG 11/14/19 21:00 12/01/19 20:59 11/20/19 20:45 Sennosides (Senokot) 8.6 mg HSPRN PRN NG Constipation 11/14/19 12:00 12/14/19 11:59 Assessment/Plan Assessment/Plan ASSESSMENT Acute hypoxemic hypercapnic respiratory failure requiring BiPAP Acute metabolic encephalopathy likely due to hypoglycemia Diabetes mellitus with initial hypoglycemia Probably pneumonia , s/p Rx Aspiration risk Dysphagia , s/p PEG , pulled out, s/p replacement of PEG 11/16 Acute kidney injury on chronic kidney disease, requiring start of HD 10/30 Severe anemia requiring blood transfusion Metabolic acidosis Electrolyte imbalance :hyponatremia, hyperkalemia HTN with HTN urgency Hematuria 2 to pt pulled off his Lyles catheter Possibly DAYANA PLAN OF CARE [facility] floor BiPAP at HS and prn currently on O2 2 L via NC titrate O2, pulm toilet patient likely has DAYANA. recommend sleep study as OP CXR 11/02 -> Stable slightly increased bilateral pleural effusions. Otherwise little supervisor policy change clerks 3 days 10/21 and 10/24 rapid COVID NGT, repeated 11/17 COVID - NGT abx as per ID recs -> Ceftriaxone , completed 10/30 ; s/p Vanco , completed Rx for PNA 7 days, remains afebrile no leucocytosis BCX 10/21 NGTD UCX NGT SCX if able Venous Duplex BLE 10/25 -> NGT CT head revealed bilateral mastoid disease; a new finding ID recommended ENT eval- pending- per primary team remains afebrile, asymptomatic on HD- started 10/30 renal US ->Mildly atrophic kidneys. No hydronephrosis or nephrolithiasis. monitor volumes, renal parameters, lytes, correct as needed fup with nephro recs s/p placement of permanent HD catheter R chest 11/07 s/p removal of temporary HD catheter by surgeon ECHO with pEF 55-60% rate control with BB, now added, HR stable on chronic a/c , was on hold for PEG, resume Eliquis swallow eval with aspiration risk diet texture as per ST recs with strict asp precautions and assistance with meals NGT repeated BSSE 11/04 -> failed, recommended nonoral feeding started on NGT feeding strict aspiration precautions s/p PEG 11/08 asp precautions, GT site care, monitor tolerance of TF pulled out GT , needs replacement failed swallow eval 11/14 s/p PEG 11/16, tolerates GT feeding abd binder, AMS 10/[address] head negative, off sedatives ammonia WNL NGT inserted for meds as per nephro recs ( prior to G tube) NEED NEURO EVAL-per primary AMS improved to baseline psych follows HgA1c -6.1 hold oral anti-glycemic SSI prn sensitive initial AMS was most likely due to episode of hypoglycemia CT head NGT for acute ICP -done x 2 BP management with CCB BB and Hydralazine prn for BP spikes monitor HH with goal to keep Hgb above 7 stool OB anemia w/up noted , heme on board s/p 1 dose of Venofer on EPO hematuria resolved, Hgb at baseline GI prophayxlis supportive care diarrhea x 2 this am, dc lactulose for now WILL NEED TRILOGY VENT TO BE ARRANGED ON DISCHARGE ( pt needs BIPAP at HS and prn ) declined BiPAP prior for few nights, but was compliant prior , need reenforcement to use BiPAP at HS ok for dc form pulmonary standpoint BiPAP at HS and prn -12/5 FiO2 30% however, patient continue to refuse BiPAP at night patient with chronic CO2 retention, understand risks and consequences of not using BiPAP at night, including refusing BIPAP in the hospital and will refuse at SNF, given that patient understands the risks involved and non-compliance with BiPAP - may dc without BiPAP, patient understands risk of resp failure involved case discussed and evaluated by supervising physician Jonathon Pabon MD 11/23/19 0650: Subjective Allergies: Coded Allergies: PENICILLINS (Verified Allergy, Unknown, 8/3/20) tolerated Ceftriaxone Assessment/Plan Assessment/Plan Patient seen and examined with INTERNET SALES MANAGER. Agree with above A&P as it reflects our joint deliberations. Reema Hanna NP Nov 23, 2019 10:19 Jonathon Pabon MD Nov 23, 2019 17:59
[2019-11-23 12:00] VITALS: BP 132/74
--- NOTE | 2019-11-23 13:50 | Infectious Diseases Prog Note ---
Assessment/Plan 79yo M from SN[facility] who p/w hypoglycemia and resp failure: Acute hypoxic respiratory failure, on BiPAP > 2L NC> RA > 2L NC Rapid COVID neg x2 (10/21, 10/24) Pneumonia on CXR, sp rx Volume overload 10/30 CXR: Slightly improved 10/25 CXR: Bilateral alveolar densities are unchanged 10/24 Sp cx normal resp demario (prelim) 10/23 CXR: 1. Small layering right pleural effusion, not significantly changed. The previously noted small left pleural effusion is not as evident.Prominent lung markings and haziness, right greater left, which may be related to pulmonary vascular congestion versus pneumonitis. This is not significantly changed.. Subsegmental atelectasis versus infiltrate in the medial left lung base, also not significantly changed. 10/21 CXR: 1. Small bilateral pleural effusions. Bibasilar atelectasis versus pneumonia. 2. Prominent lung markings and hazy opacities in right greater than left lungs may represent artifact versus pulmonary vasculature congestion and edema versus infectious/inflammatory process. 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 Afebrile No leukocytosis Anemia to 6.8, improved UA neg, UCx neg 10/21 BCx Neg ALEXIS on CKD, worsening --> now on HD HBsAg neg Plan: Cont to monitor off abx 11/07 Clindamycin x1 for catheter placement 10/31 SP CTX #7 10/26 SP vancomycin IV #5 Trend resp status Monitor CBC, CMP recommend ENT eval as outpt PEG care aspiration precautions discharge planning Thank you for this consult. [facility] will continue to follow. Subjective Allergies: Coded Allergies: PENICILLINS (Verified Allergy, Unknown, 10/25/19) tolerated Ceftriaxone afebrile at 2l NC no leukocytosis Objective Last 24 Hour Vital Signs Date Time Temp Pulse Resp B/P (MAP) Pulse Ox O2 Delivery O2 Flow Rate FiO2 11/23/19 12:00 98.2 77 18 132/74 (93) 98 11/23/19 09:00 Nasal Cannula 2.0 11/23/19 08:53 87 136/67 11/23/19 08:52 87 136/67 11/23/19 08:52 136/67 11/23/19 08:00 98.2 87 20 136/67 (90) 97 11/23/19 07:30 99 Nasal Cannula 2.0 28 11/23/19 04:55 154/62 11/23/19 04:00 98.1 96 20 154/62 (92) 96 11/23/19 00:00 97.7 68 20 119/49 (72) 98 11/22/19 22:00 132/51 11/22/19 21:00 Nasal Cannula 2.0 11/22/19 21:00 132/51 11/22/19 21:00 66 132/51 11/22/19 20:00 98.1 66 20 132/51 (78) 98 11/22/19 20:00 96 Nasal Cannula 2.0 28 11/22/19 16:00 97.9 59 18 115/47 (69) 98 Height (Feet): 5 Height (Inches): 5.00 Weight (Pounds): 161 Gen NAD Pulm: BL chest rise Abd: soft, NTND; Ext: No c/c/e, 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 skin: no rash Laboratory Tests Test 11/22/19 17:15 11/23/19 01:31 11/23/19 05:50 11/23/19 05:55 POC Whole Blood Glucose 180 MG/DL (74-106) H 146 MG/DL (74-106) H Sodium Level 132 MMOL/L (136-145) L Potassium Level 3.6 MMOL/L (3.5-5.1) Chloride Level 96 MMOL/L (98-107) L Carbon Dioxide Level 34 MMOL/L (21-32) H Anion Gap 2 mmol/L (5-15) L Blood Urea Nitrogen 49 mg/dL (7-18) H Creatinine 3.1 MG/DL (0.55-1.30) H Estimat Glomerular Filtration Rate 19.4 mL/min (>60) Glucose Level 165 MG/DL (74-106) H Calcium Level 8.4 MG/DL (8.5-10.1) L White Blood Count 8.1 K/UL (4.8-10.8) Red Blood Count 2.65 M/UL (4.70-6.10) L Hemoglobin 7.5 G/DL (14.2-18.0) L Hematocrit 25.5 % (42.0-52.0) L Mean Corpuscular Volume 96 FL (80-99) Mean Corpuscular Hemoglobin 28.4 PG (27.0-31.0) Mean Corpuscular Hemoglobin Concent 29.5 G/DL (32.0-36.0) L Red Cell Distribution Width 14.7 % (11.6-14.8) Platelet Count 274 K/UL (150-450) # Mean Platelet Volume 7.5 FL (6.5-10.1) Neutrophils (%) (Auto) % (45.0-75.0) Lymphocytes (%) (Auto) % (20.0-45.0) Monocytes (%) (Auto) % (1.0-10.0) Eosinophils (%) (Auto) % (0.0-3.0) Basophils (%) (Auto) % (0.0-2.0) Differential Total Cells Counted 100 Neutrophils % (Manual) 83 % (45-75) H Lymphocytes % (Manual) 8 % (20-45) L Monocytes % (Manual) 7 % (1-10) Eosinophils % (Manual) 2 % (0-3) Basophils % (Manual) 0 % (0-2) Band Neutrophils 0 % (0-8) Platelet Estimate Adequate Platelet Morphology Normal Polychromasia 1+ Hypochromasia 1+ Anisocytosis 1+ Stomatocytes 1+ Test 11/23/19 06:03 POC Whole Blood Glucose Pending Current Medications Medications (Trade) Dose Ordered Sig/Cammy Route PRN Reason Start Time Stop Time Status Last Admin Dose Admin Acetaminophen (Tylenol) 650 mg Q6H PRN NG Pain 3-5 11/14/19 12:00 12/02/19 00:00 11/21/19 23:39 Amlodipine Besylate (Norvasc) 2.5 mg DAILY NG 11/22/19 09:00 11/25/19 08:59 11/23/19 08:52 Atorvastatin Calcium (Lipitor) 10 mg BEDTIME NG 11/14/19 21:00 01/21/20 20:59 11/21/19 21:19 Chlorhexidine Gluconate (Yi-Hex 2%) 1 applic DAILY@1999 TOPIC 11/14/19 20:00 01/31/20 19:59 11/22/19 19:55 Clonidine HCl (Catapres TTS-1) 1 patch QWEEK TDERMAL 11/19/19 19:00 02/10/20 18:59 11/19/19 18:16 Dextrose (Dextrose 50%) 25 ml Q30M PRN IV Hypoglycemia 11/14/19 10:45 01/20/20 21:44 Dextrose (Dextrose 50%) 50 ml Q30M PRN IV Hypoglycemia 11/14/19 10:45 01/20/20 21:44 Docusate Sodium (Colace) 100 mg THREE TIMES A DAY NG 11/14/19 13:00 12/02/19 17:59 11/23/19 12:12 Epoetin William (Epoetin William(ESRD on dialysis)) 10,000 unit SUBQ 11/22/19 21:00 02/20/20 20:59 11/23/19 01:35 Haloperidol (Haldol) 5 mg Q12H PRN NG Agitation 11/14/19 12:00 12/26/19 00:00 11/23/19 08:55 Haloperidol Lactate (Haldol) 5 mg Q6H PRN IM Agitation 11/14/19 12:00 12/10/19 00:00 11/18/19 00:28 Hydralazine HCl (Apresoline) 10 mg Q8HR NG 11/22/19 14:00 02/15/20 13:59 11/23/19 04:55 Insulin Aspart (NovoLOG) Q6HR SUBQ 11/14/19 12:00 01/31/20 06:29 11/23/19 12:13 Lansoprazole (Prevacid) 30 mg DAILY NG 11/15/19 09:00 12/11/19 08:59 11/23/19 08:53 Levothyroxine Sodium (Synthroid) 75 mcg DAILY@0630 NG 11/15/19 06:30 12/04/19 06:29 11/23/19 04:55 Lisinopril (PriniviL) 20 mg Q12HR NG 11/15/19 21:00 12/13/19 20:59 11/23/19 08:52 Metoprolol Tartrate (Lopressor) 50 mg Q12HR NG 11/15/19 09:00 02/13/20 08:59 11/23/19 08:53 Neomycin/ Polymyxin/ Bacitracin (Neomycin/Polymy/ Bacitr Oint) 1 applic DAILY TOPIC 11/18/19 14:00 02/16/20 13:59 11/23/19 08:52 Polyethylene Glycol (Miralax) 17 gm BEDTIME NG 11/14/19 21:00 12/01/19 20:59 11/20/19 20:45 Sennosides (Senokot) 8.6 mg HSPRN PRN NG Constipation 11/14/19 12:00 12/14/19 11:59 Trinity Pan M.D. Nov 23, 2019 13:50
[2019-11-23 14:00] VITALS: BP 115/60
--- NOTE | 2019-11-23 15:38 | Surgery Progress Note ---
Surgery Progress Note Subjective Procedure Performed removal Right femoral temporary hemodialysis catheter Symptoms: improved Additional Comments s/p peg, hd as per renal, labs noted, no bleeding Objective Last 24 Hour Vital Signs Date Time Temp Pulse Resp B/P (MAP) Pulse Ox O2 Delivery O2 Flow Rate FiO2 11/23/19 12:00 98.2 77 18 132/74 (93) 98 11/23/19 09:00 Nasal Cannula 2.0 11/23/19 08:53 87 136/67 11/23/19 08:52 87 136/67 11/23/19 08:52 136/67 11/23/19 08:00 98.2 87 20 136/67 (90) 97 11/23/19 07:30 99 Nasal Cannula 2.0 28 11/23/19 04:55 154/62 11/23/19 04:00 98.1 96 20 154/62 (92) 96 11/23/19 00:00 97.7 68 20 119/49 (72) 98 11/22/19 22:00 132/51 11/22/19 21:00 Nasal Cannula 2.0 11/22/19 21:00 132/51 11/22/19 21:00 66 132/51 11/22/19 20:00 98.1 66 20 132/51 (78) 98 11/22/19 20:00 96 Nasal Cannula 2.0 28 11/22/19 16:00 97.9 59 18 115/47 (69) 98 I&O Intake and Output 11/22/19 11/23/19 19:00 07:00 Intake Total 80 ml 680 ml Output Total 1000 ml Balance 80 ml -320 ml Free Water 200 ml Tube Feeding 80 ml 480 ml Hemodialysis UF 1000 ml # Voids 1 Dressing: other Wound: other Cardiovascular: RSR Respiratory: decreased breath sounds Abdomen: soft, non-tender, present bowel sounds Extremities: no tenderness, no cyanosis Laboratory Tests Test 11/22/19 17:15 11/23/19 01:31 11/23/19 05:50 11/23/19 05:55 POC Whole Blood Glucose 180 MG/DL (74-106) H 146 MG/DL (74-106) H Sodium Level 132 MMOL/L (136-145) L Potassium Level 3.6 MMOL/L (3.5-5.1) Chloride Level 96 MMOL/L (98-107) L Carbon Dioxide Level 34 MMOL/L (21-32) H Anion Gap 2 mmol/L (5-15) L Blood Urea Nitrogen 49 mg/dL (7-18) H Creatinine 3.1 MG/DL (0.55-1.30) H Estimat Glomerular Filtration Rate 19.4 mL/min (>60) Glucose Level 165 MG/DL (74-106) H Calcium Level 8.4 MG/DL (8.5-10.1) L White Blood Count 8.1 K/UL (4.8-10.8) Red Blood Count 2.65 M/UL (4.70-6.10) L Hemoglobin 7.5 G/DL (14.2-18.0) L Hematocrit 25.5 % (42.0-52.0) L Mean Corpuscular Volume 96 FL (80-99) Mean Corpuscular Hemoglobin 28.4 PG (27.0-31.0) Mean Corpuscular Hemoglobin Concent 29.5 G/DL (32.0-36.0) L Red Cell Distribution Width 14.7 % (11.6-14.8) Platelet Count 274 K/UL (150-450) # Mean Platelet Volume 7.5 FL (6.5-10.1) Neutrophils (%) (Auto) % (45.0-75.0) Lymphocytes (%) (Auto) % (20.0-45.0) Monocytes (%) (Auto) % (1.0-10.0) Eosinophils (%) (Auto) % (0.0-3.0) Basophils (%) (Auto) % (0.0-2.0) Differential Total Cells Counted 100 Neutrophils % (Manual) 83 % (45-75) H Lymphocytes % (Manual) 8 % (20-45) L Monocytes % (Manual) 7 % (1-10) Eosinophils % (Manual) 2 % (0-3) Basophils % (Manual) 0 % (0-2) Band Neutrophils 0 % (0-8) Platelet Estimate Adequate Platelet Morphology Normal Polychromasia 1+ Hypochromasia 1+ Anisocytosis 1+ Stomatocytes 1+ Test 11/23/19 06:03 POC Whole Blood Glucose Pending Plan Problems: (1) Hypercarbia (2) Pleural effusion (3) Chronic renal failure (4) Anemia (5) CHF (congestive heart failure) (6) Bacteremia (7) Cellulitis Assessment & Plan: improving no active bleeding eric ley will monitor (8) Hypoglycemia (9) Hyponatremia (10) ATN (acute tubular necrosis) (11) Metabolic acidosis Assessment & Plan: DYSPHAGIA RISK FACTORS INCLUDE: RESPIRATORY WELL MULTIPLE MEDICAL COMPLICATIONS, SHORTNESS OF BREATH, WORK OF BREATHING, DECREASED MENTATION, HX OF SUBOPTIMAL P.O. INTAKE, LETHARGY (DIFFICULTY SUSTAINING WAKEFULNESS) , CLINICAL HISTORY: AMS CURRENT CXR: Indication: Shortness of breath Technique: One view of the chest Comparison: 10/31/2019 Findings: Interim placement of nasogastric tube, tip projected at the level of the gastric body. This was also demonstrated on 11/01/2019 abdominal radiograph. Bilateral hazy opacity appears similar to or perhaps slightly increased from the prior study. Generalized mild interstitial prominence persists. Impression: Stable slightly increased bilateral pleural effusions Otherwise little change management 3 days INITIAL IMPRESSION: PATIENT POSITIONED AT 90 DEGREES UPRIGHT IN BED AND PRESENTED WITH P.O. TRIALS OF ICE CHIPS, ONE AT A TIME. LINGUAL SIZE PRESENTS ENLARGED. PATIENT PERSISTENTLY MOUTH BREATHING. WHEN PRESENTED WITH ONE ICE CHIP HE MANIPULATED IT, ALLOWED IT TO MELT ON HIS TONGUE AND AFTER A MODERATE DELAY, HE SWALLOWED. RR CHANGES FROM 18 BREATHS PER MINUTE TO 25 BREATHS PER MINUTE ALONG WITH WORK OF BREATHING. WHEN ASKED TO SAY "AH" POST SWALLOW, PATIENTS VOCAL QUALITY WAS WET/GURGLY. HYOLARYNGEAL EXCURSION PRESENTED MODERATELY DECREASED. PATIENT ESSENTIALLY NON/VERBAL THIS AFTERNOON. HIGH ASPIRATION RISK. HIS RISK FOR CONSISTENT/STABLE/SUFFICIENT P.O. INTAKE TO SUPPORT NUTRITION/HYDRATION NEEDS. RECOMMENDATIONS: 1. CONTINUE NON/ORAL FEEDING MANAGEMENT PRIMARY SOURCE OF NUTRITION/ HYDRATION/MEDICATION 2. NPO STATUS 3. RE/ORDER SWALLOW EVALUATION IF/WHEN PATIENTS MEDICAL STATUS STABILIZES. DAILY ESTIMATED NEEDS: Needs based on Critical care, wound 71kg abw 22-28 kcals/kg 1792-6611 total kcals 1.25-2 g protein/kg 88-154 g total protein 25-30 mL/kg 3760-5568 total fluid mLs NUTRITION DIAGNOSIS: 1) Swallowing difficulty r/t respiratory status as evidenced by pt is vent dep via trach, GT dep. 2) Increased kcal/prot needs R/T wound healing as evidenced by pt admitted w/ multiple wounds including full thickness x3, refer to wound care eval for full report. CURRENT TF:NPO ENTERAL NUTRITION RECOMMENDATIONS: Glucerna 1.2 @60ml/hr x24 hrs + Prosource 1pkt QD to provide 1440ml, 1728 kcal, 86g +11g pro, 1159ml free H2o - As medically appropriate, initiate Glucerna 1.2 @ 30ml/hr x 6hrs - Advance 10ml q 4-6 hrs as tolerated to goal rate - Add Prosource 1pkt daily to better meet protein needs - HOB over 30 degrees/ water flush 120ml q 4hrs PARENTERAL NUTRITION RECOMMENDATIONS TPN Comment: Rec TPN to meet est needs with anticipated prolonged NPO status ADDITIONAL RECOMMENDATIONS: 1) Calibrated bedscale wt 2) Rec adding D5 IVF while pt is NPO to prevent hypoglycemia 3) Monitor lytes w/ TF, replete as needed 4) Wound healing: Vit C 250mg BID + SILVESTRE BID w/ TF orders 5) Monitor need for NISS w/ TF: h/o DM 6) Consider TPN w/ anticipated prolonged NPO status Hardware: Nasogastric tube terminates in the region of the stomach. Distal portion of a central venous catheter terminates in the junction of the SVC and right atrium. Abdomen: Nonspecific partially visualized bowel gas pattern. No free air. Bones: Normal. Soft tissues: Normal. Visualized chest: Hazy and interstitial opacities and right greater than left lungs. Atherosclerotic calcifications of the aorta. Borderline size of the cardiac silhouette. IMPRESSION: Nasogastric tube terminates in the region of the stomach. (12) Pneumonia (13) Cellulitis of foot Assessment & Plan: Pt presented on admission with Bilat TMA. Pressure injuries both heels. Stable dry necrosis note to Plantar /lateral L TMA. L Heel is boggy with non- Blanchable erythema. . R Heel Boggy with Non-Blanchable erythema.Haemosiderin with Xerosis skin noted to R and L lower ext. Darker skin tone without erythema , induration or fluctuance Medial L Malleolus. Darker skin tone without erythema or induration noted to sacrum. Tx.Plan: Apply Moisture Barrier Paste to Sacrum. Cover with Optifoam drsg.Change every 3 days and prn. Apply Betadine to eschar plantar/lateral L TMA . Cover with Optifoam drsg. Change every 3 days and prn. Apply Cavilon Skin Barrier to both heels and Malleoli. Cover each site with Optifoam drsg. Change every 7days and prn. Reposition at least every 2hours or as tolerated. Off load heels with pillow.Hx prior amputation prior MRI and plain films reviewed wounds stable and local care being provided no abscess noted cont with dressings elevate heels with pillow turn q2h off load pressure air mattress will follow with recs thank you (14) Osteomyelitis (15) History of hypertension (16) Renal failure (ARF), acute on chronic Assessment & Plan: HD line removed 11/09 (17) Acute encephalopathy (18) Diabetes mellitus (19) Hypertension (20) Cholelithiasis Assessment & Plan: US reviewed exam benign asymptomatic cholelithiasis alk phos mild elevated lfts improved trend labs no acute surgical intervention planned Liver: Liver measures 14.8 cm. No intrahepatic bile duct dilation. Gallbladder: Small stone in the gallbladder. No significant gallbladder wall thickening or pericholecystic fluid. Negative sonographic Bianchi's sign. Common bile duct: Normal common bile duct measuring 4.5 mm. No stones. No dilation. Pancreas: Pancreas is not visualized due to overlying bowel gas. Kidneys: Right kidney measures 9.1 cm in length. No hydronephrosis or stone. Left kidney not visualized due to patient's body habitus. Spleen: Spleen measures 9.4 cm. No focal lesion. Aorta: Visualized portions of the aorta are grossly unremarkable. The mid and distal portions are obscured by bowel gas. Inferior vena cava: Unremarkable. Free fluid: No ascites. Tubes, lines and devices: Lyles catheter in a decompressed bladder. IMPRESSION: Small stone in the gallbladder. No significant gallbladder wall thickening or pericholecystic fluid. Negative sonographic Bianchi's sign. DAILY ESTIMATED NEEDS: Needs based on Pulmonary, renal +HD/ 63.4kg abw 25-35 kcals/kg 9707-4332 total kcals 1.2-1.8 w/ HD g protein/kg 76-114 g total protein Fluid per MD NUTRITION DIAGNOSIS: * Swallowing difficulty R/T dysphagia, lethargy as evidenced by pt on pureed moist texture w/ NTL, now s/p PEG placement, on GT feeds. * Altered nutrition related lab values R/T clinical condition as evidenced by low Hgb (6.8-> 9.2->7.5), elev BNP (51325), elev creat (3.1), elev Phos now wnl, elev K now wnl, pt is now on HD. CURRENT TF:Nepro @ 40ml/hr x 22 hrs ENTERAL NUTRITION RECOMMENDATIONS: Nepro @ 45ml/hr x 22 hrs (hold 1 hr before and after Synthroid med) to provide 990ml, 1782kcal, 80g prot, 720ml free water * Increase goal rate to 45ml/hr x 22 hrs to better meet needs * Hold 1 hr before and after Synthroid med * HOB over 30 degrees/ water flush per MD ADDITIONAL RECOMMENDATIONS: * Monitor BIPAP usage, need to adjust TF rec-> now off Bipap. * Daily calibrated bed scale wt: bedscale wt 191lbs vs EMR wt 160lbs * Monitor lytes: K and phos wnl * Wound care: Add Nephrovite x 1, SILVESTRE BID via PEG Vit C dosing per MD * Monitor BGs, need for long acting insulin . Mariusz Diehl Nov 23, 2019 15:38
--- NOTE | 2019-11-23 15:53 | Nephrology Progress Note ---
Assessment/Plan Problem List: (1) Renal failure (ARF), acute on chronic (2) Metabolic acidosis (3) Electrolyte imbalance Assessment: Hyponatremia and hyperkalemia (4) Anemia (5) CHF (congestive heart failure) Assessment 79-year-old male is admitted for hypoglycemia Patient has renal failure which appears to be acute on chronic Hyperkalemia Hyponatremia CHF, pleural effusion, pneumonia Anemia Metabolic acidosis Hypothyroidism Plan November 22: Labs reviewed. Patient was dialyzed yesterday. Hemoglobin lower. Continue current management per consultants. Hemodialysis as needed. Will check renal parameters in a.m. November 21: Labs reviewed. Serum creatinine higher. Will dialyze today. Blood pressure medication adjusted. November 20: Last dialysis November 18. GT feeding in process. Check labs tomorrow. Dialysis as needed. November 19: Labs reviewed. Dialyzed yesterday. Stable. November 18: No labs done today. Due for dialysis today. Check labs tomorrow. November 17: Patient lethargic. Creatinine rising. We will attempt dialysis tomorrow. Labs and medications reviewed. November 16: Labs reviewed. Serum creatinine is slightly higher. Will adjust blood pressure medication. We will consider dialysis if further worsening of renal parameters ensued. November 15: Lab reviewed. Serum creatinine creeping up. We will continue to monitor renal parameters. Further rise in serum creatinine will again require dialysis. November 14: Lab reviewed. Serum creatinine danial lethargic. Is a NG tube. Doubt stone pass speech therapy for oral intake. We will continue to monitor renal parameters. Review mind altering medication and adjust as possible. Continue per consultants. November 13: Labs reviewed. Serum creatinine is leveling off. No dialysis needed at this time. Patient has NG tube. Due for swallowing study. We will continue to monitor renal parameters. He may not need any further dialysis treatment as the acute renal failure appears to have been resolved. Will adjust blood pressure medication. Continue per orders. November 12: Lab works are reviewed. Renal parameters stable. Dialysis as needed. Medication list reviewed. November 11: Patient last dialyzed November 09. Patient pulled out the GT tube. Slight bleeding from the site observed. GI to reinsert. Zestril added for BP control. Next hemodialysis tomorrow. November 10: Patient was dialyzed yesterday. Labs reviewed. Stable from renal standpoint of view. November 09: Patient due for dialysis today due to incomplete dialysis yesterday as a result of catheter malfunction. The femoral catheter was already removed this morning. Labs reviewed. Continue current management. November 08: Dialysis attempted through the permacath which was put in yesterday by IR. Due to high catheter pressure , dialysis was held and PTAse administered. Dialysis will be tried again tomorrow. Will check labs tomorrow. November 07: Patient due for tunneled catheter insertion today. Will order dialysis tomorrow. Continue to monitor renal parameters. Labs and medications reviewed. November 06: Patient due for tunnel catheter insertion November 07. Serum creatinine is rising. Labs reviewed. Continue per consultants. November 05: Last dialysis November 03. Eliquis on hold. Due tunneled catheter insertion on November 07. Labs are reviewed. Continue current management. November 04: Dialyzed yesterday. Due for insertion of tunneled catheter today. May need to hold Eliquis and reschedule catheter insertion on Friday. Will monitor renal parameters in the meantime. November 03: Dialyzed this morning. Stable from renal standpoint of view. Due for insertion of tunneled catheter tomorrow. November 02: Dialyzed yesterday. Will DC IV fluid. Dialysis tomorrow. Potassium supplement given. Per orders. November 01: Patient currently being dialyzed. Tolerating well. Labs will be reviewed. Continue per consultants. October 31: Patient was dialyzed yesterday. Clinically doing better. We will continue to monitor renal parameters. Dialysis as needed. October 30: Serum creatinine rising. Patient due to have a temporary dialysis catheter and due for dialysis today. Will continue to follow-up renal parameters. Patient remains full code. October 29: Serum creatinine rising. Serum creatinine 4.5 today. Calculated creatinine clearance is 12. Kidney ultrasound ordered yesterday results were reviewed. Patient appears to have acute renal failure due to underlying sepsis and nephrotoxic medications. Patient requires dialysis treatment. Ordered to obtain consent from the responsible alliance party. Will communicate with PMD and or he is coverage. October 28: Serum creatinine higher to 4.2 today. Blood pressure appears more stable. In view of worsening renal failure, will order stat kidney ultrasound and urine studies. Continue to monitor renal parameters. Patient is full code. Worsening renal parameters may lead to hemodialysis treatment. October 27: Patient pulled out the Lyles catheter. Serum creatinine went up to 3.8. Blood pressure somewhat low. Heart rate in 50s. Will discontinue Coreg. We will continue to monitor renal parameters. October 26: Serum creatinine lower again today. Will abort the dialysis plan. Continue per consultants. Continue to monitor renal parameters. Medication list reviewed. October 25: Clinically improving. Serum creatinine lower. Urine output increased. No dialysis planned at this time. Continue per consultants. October 24: Patient's respiratory status somewhat improved. Serum creatinine down to 3.9. Urinary output somewhat increased. Will hold placement of dialysis catheter at this time. Blood pressure medication adjusted. Continue to monitor renal parameters. Per orders. October 23: Patient remains on BiPAP. More Kayexalate ordered. Will consider hemodialysis to correct fluid overload and hyperkalemia and acidosis. Will discuss with PMD. Meanwhile IV Synthroid started. Discussed with RN Timothy Patient already transfused 1 unit for severe anemia previously Will initiate Epogen 10,000 units subcutaneously 1 dose of IV iron Venofer 200 g IV Kayexalate for hyperkalemia as needed 2D echocardiogram ordered, ejection fraction is reported normal Kidney ultrasound ordered: Kidneys: Right kidney measures 9.1 cm in length. No hydronephrosis or stone. Left kidney not visualized due to patient's body habitus. Avoid nephrotoxic's Monitor renal parameters Will hold insulin and hypoglycemic agents until hypoglycemia is reasonably resolved Subjective ROS Limited/Unobtainable: No Constitutional: Reports: malaise, weakness Objective Objective Last 24 Hour Vital Signs Date Time Temp Pulse Resp B/P (MAP) Pulse Ox O2 Delivery O2 Flow Rate FiO2 11/23/19 12:00 98.2 77 18 132/74 (93) 98 11/23/19 09:00 Nasal Cannula 2.0 11/23/19 08:53 87 136/67 11/23/19 08:52 87 136/67 11/23/19 08:52 136/67 11/23/19 08:00 98.2 87 20 136/67 (90) 97 11/23/19 07:30 99 Nasal Cannula 2.0 28 11/23/19 04:55 154/62 11/23/19 04:00 98.1 96 20 154/62 (92) 96 11/23/19 00:00 97.7 68 20 119/49 (72) 98 11/22/19 22:00 132/51 11/22/19 21:00 Nasal Cannula 2.0 11/22/19 21:00 132/51 11/22/19 21:00 66 132/51 11/22/19 20:00 98.1 66 20 132/51 (78) 98 11/22/19 20:00 96 Nasal Cannula 2.0 28 11/22/19 16:00 97.9 59 18 115/47 (69) 98 Intake and Output 11/22/19 11/23/19 19:00 07:00 Intake Total 80 ml 680 ml Output Total 1000 ml Balance 80 ml -320 ml Free Water 200 ml Tube Feeding 80 ml 480 ml Hemodialysis UF 1000 ml # Voids 1 Laboratory Tests 11/22/19 17:15: POC Whole Blood Glucose 180H 11/23/19 01:31: POC Whole Blood Glucose 146H 11/23/19 05:50: Sodium Level 132L, Potassium Level 3.6, Chloride Level 96L, Carbon Dioxide Level 34H, Anion Gap 2L, Blood Urea Nitrogen 49H, Creatinine 3.1H, Estimat Glomerular Filtration Rate 19.4, Glucose Level 165H, Calcium Level 8.4L 11/23/19 05:55: White Blood Count 8.1, Red Blood Count 2.65L, Hemoglobin 7.5L, Hematocrit 25.5L , Mean Corpuscular Volume 96, Mean Corpuscular Hemoglobin 28.4, Mean Corpuscular Hemoglobin Concent 29.5L, Red Cell Distribution Width 14.7, Platelet Count 274#, Mean Platelet Volume 7.5, Neutrophils (%) (Auto) , Lymphocytes (%) (Auto) , Monocytes (%) (Auto) , Eosinophils (%) (Auto) , Basophils (%) (Auto) , Differential Total Cells Counted 100, Neutrophils % ( Manual) 83H, Lymphocytes % (Manual) 8L, Monocytes % (Manual) 7, Eosinophils % ( Manual) 2, Basophils % (Manual) 0, Band Neutrophils 0, Platelet Estimate Adequate, Platelet Morphology Normal, Polychromasia 1+, Hypochromasia 1+, Anisocytosis 1+, Stomatocytes 1+ 11/23/19 06:03: POC Whole Blood Glucose [Pending] Height (Feet): 5 Height (Inches): 5.00 Weight (Pounds): 161 General Appearance: no apparent distress Cardiovascular: normal rate Respiratory/Chest: decreased breath sounds Objective No change Naveed Vanegas MD Nov 23, 2019 15:53
--- NOTE | 2019-11-23 22:44 | Cardiology Progress Note ---
Assessment/Plan Assessment/Plan 1. Sinus tachycardia, resolved, continue metoprolol. 2. Acute HFpEF with elevated BNP, 2D echocardiography shows normal LV systolic with LVEF of about 55% but e/o increased intracardiac filling pressure. BP control, mild diuretics. 3. Multiple risk factors for coronary artery disease include diabetes mellitus and hypertension. 4. History of peripheral vascular disease, status post partial foot amputation. 5. Acute on chronic renal failure. 6. Anemia of chronic disease. 7. HTN, well controlled, continue amlodipine, lisinopril, metoprolol and doxazosin. Subjective Subjective No cardiac events reported. Denies chest pain or SOB. Objective Last 24 Hour Vital Signs Date Time Temp Pulse Resp B/P (MAP) Pulse Ox O2 Delivery O2 Flow Rate FiO2 11/23/19 14:00 115/60 11/23/19 12:00 98.2 77 18 132/74 (93) 98 11/23/19 09:00 Nasal Cannula 2.0 11/23/19 08:53 87 136/67 11/23/19 08:52 87 136/67 11/23/19 08:52 136/67 11/23/19 08:00 98.2 87 20 136/67 (90) 97 11/23/19 07:30 99 Nasal Cannula 2.0 28 11/23/19 04:55 154/62 11/23/19 04:00 98.1 96 20 154/62 (92) 96 11/23/19 00:00 97.7 68 20 119/49 (72) 98 Intake and Output 11/22/19 11/23/19 19:00 07:00 Intake Total 80 ml 680 ml Output Total 1000 ml Balance 80 ml -320 ml Free Water 200 ml Tube Feeding 80 ml 480 ml Hemodialysis UF 1000 ml # Voids 1 CXR: reviewed 2D Echo: LVEF 55%, Pseudo-normal LV physio grade II LV Diastolic fxn, RVSP 22, MN Laboratory Tests Test 11/23/19 01:31 11/23/19 05:50 11/23/19 05:55 11/23/19 06:03 POC Whole Blood Glucose 146 MG/DL (74-106) H Pending Sodium Level 132 MMOL/L (136-145) L Potassium Level 3.6 MMOL/L (3.5-5.1) Chloride Level 96 MMOL/L (98-107) L Carbon Dioxide Level 34 MMOL/L (21-32) H Anion Gap 2 mmol/L (5-15) L Blood Urea Nitrogen 49 mg/dL (7-18) H Creatinine 3.1 MG/DL (0.55-1.30) H Estimat Glomerular Filtration Rate 19.4 mL/min (>60) Glucose Level 165 MG/DL (74-106) H Calcium Level 8.4 MG/DL (8.5-10.1) L White Blood Count 8.1 K/UL (4.8-10.8) Red Blood Count 2.65 M/UL (4.70-6.10) L Hemoglobin 7.5 G/DL (14.2-18.0) L Hematocrit 25.5 % (42.0-52.0) L Mean Corpuscular Volume 96 FL (80-99) Mean Corpuscular Hemoglobin 28.4 PG (27.0-31.0) Mean Corpuscular Hemoglobin Concent 29.5 G/DL (32.0-36.0) L Red Cell Distribution Width 14.7 % (11.6-14.8) Platelet Count 274 K/UL (150-450) # Mean Platelet Volume 7.5 FL (6.5-10.1) Neutrophils (%) (Auto) % (45.0-75.0) Lymphocytes (%) (Auto) % (20.0-45.0) Monocytes (%) (Auto) % (1.0-10.0) Eosinophils (%) (Auto) % (0.0-3.0) Basophils (%) (Auto) % (0.0-2.0) Differential Total Cells Counted 100 Neutrophils % (Manual) 83 % (45-75) H Lymphocytes % (Manual) 8 % (20-45) L Monocytes % (Manual) 7 % (1-10) Eosinophils % (Manual) 2 % (0-3) Basophils % (Manual) 0 % (0-2) Band Neutrophils 0 % (0-8) Platelet Estimate Adequate Platelet Morphology Normal Polychromasia 1+ Hypochromasia 1+ Anisocytosis 1+ Stomatocytes 1+ Objective HEENT: Atraumatic and normocephalic. Anicteric. Pupils are equal, round, and reactive to light and accommodation. Extraocular muscles intact. NECK: JVP less than 5 cm. No carotid bruit. Carotid upstroke is 2+ bilaterally. CARDIOVASCULAR: Normal S1, S2. Regular rate and rhythm. No murmurs, gallops, or rubs. LUNGS: Bilateral rhonchi. ABDOMEN: Soft, nontender, and nondistended. No hepatosplenomegaly. Positive bowel sounds. EXTREMITIES: Bilateral partial foot amputations. Chris Hanley MD Nov 23, 2019 22:44
--- NOTE | 2019-11-23 22:53 | Psych Consult Progress Note ---
Psychiatry Progress Note Psychiatry Progress Note Subjective the pts mental condition is unchanged confused dec agitations disoriented Neurological/Psychiatric: Reports: no symptoms, other - Patient is anxious because he does not understand why he was not discharged yet Allergies: Coded Allergies: PENICILLINS (Verified Allergy, Unknown, 10/25/19) tolerated Ceftriaxone Uncoded Allergies: PENICILLIN (Allergy, Unknown, 11/23/19) Objective Data Height (Feet): 5 Height (Inches): 5.00 Weight (Pounds): 161 General Appearance: no apparent distress Appearance: no abnormalities noted Behavior Mannerisms: good eye contact Mental Status Exam - Affect: blunted Mental Status Exam - Mood: anxious, agitated Mental Status Exam - Thought P: tangential, confusion Mental Status Exam - Thought C: delusions (specify) Mental Status Exam - Suicidal: not present Additional Comments: awake, confused, and disoriented. Mood is agitated. Affect is flat. Thought process, there is a paucity of thought content. Thought content, no suicidal or homicidal ideation. Cognition is impaired. Insight and judgment impaired. Assessment/Plan Status: stable, unchanged, other - Patient is scheduled to be discharged to [facility] where he can have both BiPAP and later in dialysis we will wait till on the condition required a full feeling Dada Foy MD, MD Nov 23, 2019 22:53
--- NOTE | 2019-11-26 09:03 | Discharge Summary ---
Discharge Summary Discharge Summary _ DISCHARGE DIAGNOSES (please refer to dc summary dictated by Dr Chang 11/18) Acute hypoxemic hypercapnic respiratory failure requiring BiPAP Acute metabolic encephalopathy, likely due to hypoglycemia Acute heart failure with preserved ejection fraction/diastolic Diabetes mellitus with initial hypoglycemia Possibly pneumonia, status post treatment Aspiration risk dysphagia, status post PEG, pull out, status post replacement of PEG 826 Acute kidney injury on chronic kidney disease requiring start of hemodialysis 8 9 Metabolic acidosis Severe anemia requiring blood transfusion Anemia of chronic disease Electrolyte imbalance Hypertension with hypertensive urgency Hematuria secondary to patient pulled out his Lyles catheter Possibly obstructive sleep apnea PVD, bilateral foot metatarsal amputation Cholelithiasis Reema Hanna NP Nov 26, 2019 09:03
== END 2019-11-23 16:17 | DRG 133 ==
LOC: EDBD 16:41 → EMR 16:57 → EDBEDREQSVC 17:16 → 2W 17:20 → EDBEDREQ 18:38 → 2E 10-26 13:05 → 2W 11-03 10:08 → 2E 11-10 23:15 → 4E 11-14 10:18
PROC: 5A1D70Z Performance of Urinary Filtration, Intermittent, Less than 6 Hours Per Day (ICD-10-PCS; 2019-10-31)
PROC: 0JH63XZ Insertion of Tunneled Vascular Access Device into Chest Subcutaneous Tissue and Fascia, Percutaneous Approach (ICD-10-PCS; 2019-11-08)
PROC: 05HM33Z Insertion of Infusion Device into Right Internal Jugular Vein, Percutaneous Approach (ICD-10-PCS; 2019-11-08)
PROC: 0DH63UZ Insertion of Feeding Device into Stomach, Percutaneous Approach (ICD-10-PCS; principal; 2019-11-09 13:57)
PROC: 06PYX3Z Removal of Infusion Device from Lower Vein, External Approach (ICD-10-PCS; 2019-11-10)
PROC: 0DH63UZ Insertion of Feeding Device into Stomach, Percutaneous Approach (ICD-10-PCS; 2019-11-17 11:52)
DX: J96.01 Acute respiratory failure with hypoxia (principal); J18.9 Pneumonia, unspecified organism; E11.649 Type 2 diabetes mellitus with hypoglycemia without coma; N17.9 Acute kidney failure, unspecified; E87.5 Hyperkalemia; E87.2 Acidosis; E87.1 Hypo-osmolality and hyponatremia; G93.41 Metabolic encephalopathy; N17.0 Acute kidney failure with tubular necrosis; I13.0 Hypertensive heart and chronic kidney disease with heart failure and stage 1 through stage 4 chronic kidney disease, or unspecified chronic kidney disease; I50.33 Acute on chronic diastolic (congestive) heart failure; N18.9 Chronic kidney disease, unspecified; E11.22 Type 2 diabetes mellitus with diabetic chronic kidney disease; Z20.828 Contact with and (suspected) exposure to other viral communicable diseases; D64.9 Anemia, unspecified; I73.9 Peripheral vascular disease, unspecified; J96.02 Acute respiratory failure with hypercapnia; R00.1 Bradycardia, unspecified; R13.10 Dysphagia, unspecified; I16.0 Hypertensive urgency; H70.90 Unspecified mastoiditis, unspecified ear; R31.9 Hematuria, unspecified; E03.9 Hypothyroidism, unspecified; R62.7 Adult failure to thrive; Z68.26 Body mass index [BMI] 26.0-26.9, adult; K29.70 Gastritis, unspecified, without bleeding; K80.20 Calculus of gallbladder without cholecystitis without obstruction; F03.91 Unspecified dementia, unspecified severity, with behavioral disturbance
CPT/HCPCS: 36415; 36600; 70450; 71045; 74018; 76000; 76700; 76770; 80048; 80053; 80061; 80076; 80202; 81001; 81003; 82140; 82270; 82306; 82533; 82550; 82607; 82728; 82746; 82803; 82962; 82977; 83036; 83540; 83550; 83605; 83735; 83880; 84100; 84300; 84443; 84484; 84550; 85007; 85025; 85610; 85651; 85730; 86140; 86703; 86705; 86706; 86709; 86803; 86850; 86900; 86901; 86920; 87040; 87070; 87081; 87086; 87205; 87340; 93005; 93306; 93970; 94003; 94150; 94640; 94660; 94664; 96365; 96367; 96375; 99291; 99292; J1815; J2765; S0077; U0002

== ENCOUNTER 2019-11-23 22:40 | Inpatient (IN) | payer MEDICAID ==
[~2019-11-23] VITALS: Ht 165.1 cm; Wt 69.0 kg
[2019-11-23 22:40] VITALS: BP 139/52
[~2019-11-23 22:40] MED LIST changes: +AMLODIPINE BESYL5 MG ORAL; +CHOLECALCIFEROL PO; +CRANBERRY500 M3 PO; +ELIQUIS2.5 MG PO; +HYDROXYZINE HCL50 M1 PO; +MELATONIN 3 MG1 EAC1 PO; +MELATONIN1 M1 SL; +PROTONIX40 MG ORAL; +SENNA LAXATIVE8.6 MG PO; +XARELTO10 MG ORAL
--- NOTE | 2019-11-23 23:10 | Emergency Room Report ---
History of Present Illness General Chief Complaint: Dyspnea/Respdistress Source: Medical Record Present Illness HPI 79-year-old male with multiple chronic comorbidities here for placement at a new long term facility. The patient was recently discharged from hospital earlier today and requires dialysis 3 days/week as well as BiPAP at night at his baseline. However the patient was sent to a long term facility but does not have BiPAP capabilities. Patient came back to the emergency department per the direction of his primary care physician for placement at a new facility. Patient is hemodynamically stable here in the emergency department. Allergies: Coded Allergies: PENICILLINS (Verified Allergy, Unknown, 10/25/19) tolerated Ceftriaxone Uncoded Allergies: PENICILLIN (Allergy, Unknown, 11/23/19) COVID-19 Screening Contact w/high risk pt: No Experienced COVID-19 symptoms?: Yes COVID-19 Testing performed [employer]: Yes - 11/21/19 COVID-19 Screening: Negative COVID-19 COVID-19 Testing Source: [facility] [place] Nursing Documentation-PMH Hx Cardiac Problems: Yes - dysphagia, CKD Hx Hypertension: Yes Hx Diabetes: Yes Review of Systems All Other Systems: limited - Baseline altered mental status Physical Exam Vital Signs Date Time Temp Pulse Resp B/P (MAP) Pulse Ox O2 Delivery O2 Flow Rate FiO2 11/23/19 22:28 98.6 72 22 139/52 (81) 100 Nasal Cannula 4.0 11/23/19 22:56 30 Sp02 EP Interpretation: reviewed, normal General Appearance: no apparent distress, non-toxic, cachetic, lethargic, Chronically Ill Head: normocephalic, atraumatic Eyes: bilateral eye normal inspection, bilateral eye PERRL ENT: hearing grossly normal, no angioedema Neck: full range of motion, supple/symm/no masses Respiratory: chest non-tender, lungs clear, normal breath sounds Cardiovascular #1: regular rate, rhythm Gastrointestinal: normal bowel sounds, non tender, soft, non-distended, no guarding, no rebound Rectal: deferred Genitourinary: normal inspection, no CVA tenderness Musculoskeletal: back normal, normal range of motion, calf tenderness, gait/ station normal, other - Bilateral lower foot partial amputations. Chronic appearing foot ulcers noninfectious in appearance Neurologic: alert, motor strength/tone normal, oriented x3, sensory intact, responsive, speech normal Lymphatic: no adenopathy Medical Decision Making Diagnostic Impression: Primary Impression: Dyspnea ER Course 79-year-old male here for placement to long term facility. Patient was hemodynamic stable emergency department with normal vital signs and an unchanged physical examination per compared to his baseline. He was merely put on BiPAP with settings of 10/5. [id number] glucose normal. I spoke with the admitting physician who agreed with no need for labs or imaging at this time. Patient admitted to stepdown unit on BiPAP. Last Vital Signs Date Time Temp Pulse Resp B/P (MAP) Pulse Ox O2 Delivery O2 Flow Rate FiO2 11/23/19 22:56 66 20 100 30 11/23/19 22:28 98.6 139/52 (81) Nasal Cannula 4.0 Referrals: Ayush Chang MD (PCP) Solomon Woodward M.D. Nov 23, 2019 23:10
[2019-11-24] VITALS (7 sets, daily range): BP systolic 21–143; BP diastolic 49–143
[2019-11-24] MEDS ORDERED: Sennosides 8.6mg tab ORAL PRN (02:15)
--- NOTE | 2019-11-24 06:51 | Hematology/Onc Progress Note ---
Assessment/Plan Assessment/Plan Readmitted as facility did not have bipap capability ASSESSMENT AND RECOMMENDATIONS: # Anemia of chronic disease due to underlying chronic medical issues, multifactorial --> Anemia w/u has been reviewed. --> no evidence of hemolysis is noted, peripheral smear has been reviewed --> hgb goal is >7, transfuse as needed --> currently remains stable, occult blood negative --> hgb 8.4->8.6->8.3->8->8.2->9.2-->9.2->8.9-->8.1-->8.7>9.4-->8.7-->8->7.8-> 7.5-->7.4-->7.5 --> some blood loss due to hematuria after inflated reyes pulled 8/6 am --> EPOGEN Started # Thrombocytopenia is likely due to infection --> plt trend 180-->149-->274 --> on abx as needed --> hep and hiv neg #. Leukocytosis with underlying infectionv stress reaction HISTORY --> per id and better --> for infection, ABX ctx/vanc-->off --> wbc 10-->5.9 # Acute kidney injury r/o potential reversible component --> reviewed meds, those that are renally cleared removed --> as per renal recs, appreciated --> cr 3.5-->4.2-->3.4 --> Hd started and dw renal # Hypertension, essential --> sbp goal is <140, consider anti-htn as needed --> currently started on hyralazine 25mg po q6h prn sbp >140 # CHF - hx of CHf --> diuresis with lasix as needed --> cardiology recs appreciated prior adm #. Bilateral lower extremity amputee, metatarsal several years ago #. Dysphagia s/p peg --> peg pulled out and now with gtube #. Hyperkalemia -- kayxelate as needed #. Agitation requires restraints #. Dvt ppx scds --> xarelto The time the note was entered does not necessarily correspond to the time the patient was seen. GREATLY APPRECIATE CONSULTATION. Subjective Allergies: Coded Allergies: PENICILLINS (Verified Allergy, Unknown, 10/25/19) tolerated Ceftriaxone Uncoded Allergies: PENICILLIN (Allergy, Unknown, 11/23/19) Subjective 9/2 came back from new snf due to lack of bipap capability, hgb 7.5 Objective Objective Current Medications Medications (Trade) Dose Ordered Sig/Cammy Route PRN Reason Start Time Stop Time Status Last Admin Dose Admin Allopurinol (allopurinoL) 300 mg DAILY ORAL 11/24/19 09:00 12/24/19 08:59 UNV Amlodipine Besylate (Norvasc) 5 mg Q12HR ORAL 11/24/19 09:00 12/24/19 08:59 Atenolol (Tenormin) 100 mg DAILY ORAL 11/24/19 09:00 12/24/19 08:59 Atorvastatin Calcium (Lipitor) 10 mg BEDTIME ORAL 11/24/19 21:00 02/22/20 20:59 Docusate Sodium (Colace) 100 mg DAILY ORAL 11/24/19 09:00 12/24/19 08:59 Pantoprazole (Protonix) 40 mg DAILY ORAL 11/24/19 09:00 12/24/19 08:59 Rivaroxaban (Xarelto) 20 mg QPM ORAL 11/24/19 16:30 02/22/20 16:29 UNV Sennosides (Senokot) 8.6 mg DAILY PRN ORAL Constipation 11/24/19 02:15 12/24/19 02:14 Last 24 Hour Vital Signs Date Time Temp Pulse Resp B/P (MAP) Pulse Ox O2 Delivery O2 Flow Rate FiO2 11/24/19 04:35 62 18 99 30 11/24/19 04:00 70 11/24/19 04:00 30 11/24/19 04:00 Bi-pap 11/24/19 04:00 98.2 79 21 117/68 (84) 98 11/24/19 03:17 66 19 99 30 11/24/19 01:46 69 19 99 30 11/24/19 01:31 Bi-Pap 11/24/19 01:00 97.7 84 20 126/60 (82) 98 11/24/19 01:00 76 11/24/19 00:40 98.0 72 20 128/65 100 Bi-pap 30 11/24/19 00:40 98.6 77 20 139/52 100 Nasal Cannula 4.0 30 11/23/19 22:56 66 20 100 30 11/23/19 22:40 98.6 77 22 139/52 100 Nasal Cannula 4.0 11/23/19 22:40 72 22 Nasal Cannula 4.0 11/23/19 22:28 98.6 72 22 139/52 (81) 100 Nasal Cannula 4.0 Labs Test 11/24/19 01:29 11/24/19 02:08 11/24/19 05:53 Arterial Blood pH 7.354 (7.350-7.450) Arterial Blood Partial Pressure CO2 59.1 mmHg (35.0-45.0) Arterial Blood Partial Pressure O2 162.4 mmHg (75.0-100.0) Arterial Blood HCO3 32.2 mmol/L (22.0-26.0) Arterial Blood Oxygen Saturation 99.2 % (95-100) Arterial Blood Base Excess 5.7 (-2-2) Kristian Test N/a POC Whole Blood Glucose 140 MG/DL (74-106) Micro Microbiology Date/Time Source Procedure Growth Status 11/23/19 23:54 Nasopharynx SARS-CoV-2 RdRp Gene Assay - Final Complete Height (Feet): 5 Height (Inches): 6.00 Weight (Pounds): 180 Objective GENERAL: Not in acute distress. HEENT: ncat PULMONARY: Decreased breath sounds. ++ bipap CHEST: ++permacath CARDIOVASCULAR: Regular rate. No S3 or S4. ABDOMEN: Soft, nontender, nondistended.++peg EXTREMITIES: 1+ edema. No cyanosis, swelling, or edema. 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 Melvin Rizzo MD Nov 24, 2019 06:51
--- NOTE | 2019-11-24 09:45 | Consultation ---
Consult Note Consult Note Patient 79-year-old male who was discharged to halfway after a long hospitalization yesterday however returned back to ER with shortness of breath. Overnight patient is placed in [facility] on BiPAP Patient examined, vital signs stable, Labs ordered for today. Last dialyzed November 21 Assessment/Plan Patient's current problem is dyspnea Most likely volume overload versus pneumonitis Suggestions: Chest x-ray Check can panel Further comments based on above results Other conditions: Renal failure (ARF), acute on chronic h/o Metabolic acidosis h/oElectrolyte imbalance Hyponatremia and hyperkalemia h/oAnemia h/o CHF (congestive heart failure) Previous admission: 79-year-old male is admitted for hypoglycemia Patient has renal failure which appears to be acute on chronic Hyperkalemia Hyponatremia CHF, pleural effusion, pneumonia Anemia Metabolic acidosis Hypothyroidism Naveed Vanegas MD Nov 24, 2019 09:45
[2019-11-24 09:59] LABS: ANION GAP 5 mmol/L (5-15); BLOOD UREA NITROGEN 62 mg/dL (7-18); CALCIUM 8.7 MG/DL (8.5-10.1); CARBON DIOXIDE 32 MMOL/L (21-32); CHLORIDE 97 MMOL/L (98-107); CREATININE 3.9 MG/DL (0.55-1.30); POTASSIUM 4.2 MMOL/L (3.5-5.1); SODIUM 134 MMOL/L (136-145)
[2019-11-24 10:10] LABS: PHOSPHORUS 3.2 MG/DL (2.5-4.9)
[2019-11-24 10:24] LABS: HEMATOCRIT 25.8 % (42.0-52.0); HEMOGLOBIN 7.7 G/DL (14.2-18.0); MEAN CORPUSCULAR VOLUME 95 FL (80-99); PLATELET COUNT 284 K/UL (150-450); RED BLOOD COUNT 2.72 M/UL (4.70-6.10); RED CELL DISTRIBUTION WIDTH 15.1 % (11.6-14.8); WHITE BLOOD COUNT 7.1 K/UL (4.8-10.8)
[2019-11-24] MEDS: Docusate 100mg cap ORAL SCH (10:27)
[2019-11-24 10:31] LABS: ALANINE AMINOTRANSFERASE 13 U/L (12-78); ALBUMIN 2.3 G/DL (3.4-5.0); ALBUMIN/GLOBULIN RATIO 0.6 (1.0-2.7); ALKALINE PHOSPHATASE 159 U/L (46-116); ASPARTATE AMINO TRANSFERASE 20 U/L (15-37); BILIRUBIN,TOTAL 0.5 MG/DL (0.2-1.0); FERRITIN 81 NG/ML (8-388)
[2019-11-24] MEDS ORDERED: Xarelto 15mg tab ORAL SCH (16:30)
[2019-11-24] MEDS: Eliquis 2.5mg tablet ORAL SCH (17:57)
[2019-11-24] MEDS ORDERED: Varibar Honey 250ml MC PRN (19:15)
[2019-11-24] MEDS ORDERED: Varibar Thin Liquid powder 148gm MC PRN (19:15)
[2019-11-24] MEDS ORDERED: Varibar Pudding 230ml MC PRN (19:15)
[2019-11-24] MEDS ORDERED: Varibar Nectar 240ml MC PRN (19:15)
[2019-11-24] MEDS ORDERED: LORazepam Inj 2mg/ml 1ml IV PRN (21:56)
[2019-11-25] VITALS (7 sets, daily range): BP systolic 130–149; BP diastolic 53–68
[2019-11-25 05:01] LABS: BASOPHILS % (AUTO) 1.2 % (0.0-2.0); EOSINOPHILS % (AUTO) 0.8 % (0.0-3.0); HEMATOCRIT 27.3 % (42.0-52.0); HEMOGLOBIN 8.1 G/DL (14.2-18.0); LYMPHOCYTES % (AUTO) 13.4 % (20.0-45.0); MEAN CORPUSCULAR VOLUME 95 FL (80-99); MONOCYTES % (AUTO) 7.6 % (1.0-10.0); NEUTROPHILS % (AUTO) 77.1 % (45.0-75.0); PLATELET COUNT 300 K/UL (150-450); RED BLOOD COUNT 2.88 M/UL (4.70-6.10); WHITE BLOOD COUNT 7.2 K/UL (4.8-10.8)
[2019-11-25 05:59] LABS: ALANINE AMINOTRANSFERASE 11 U/L (12-78); ALBUMIN 2.3 G/DL (3.4-5.0); ALBUMIN/GLOBULIN RATIO 0.6 (1.0-2.7); ALKALINE PHOSPHATASE 147 U/L (46-116); ANION GAP 7 mmol/L (5-15); ASPARTATE AMINO TRANSFERASE 16 U/L (15-37); BILIRUBIN,TOTAL 0.5 MG/DL (0.2-1.0); BLOOD UREA NITROGEN 72 mg/dL (7-18); CALCIUM 8.8 MG/DL (8.5-10.1); CARBON DIOXIDE 31 MMOL/L (21-32); CHLORIDE 96 MMOL/L (98-107); CHOLESTEROL 115 MG/DL (< 200); CREATINE KINASE 27 U/L (26-308); CREATININE 4.2 MG/DL (0.55-1.30); FERRITIN 89 NG/ML (8-388); GAMMA GLUTAMYL TRANSPEPTIDASE 47 U/L (5-85); HDL CHOLESTEROL 38 MG/DL (40-60); LACTATE DEHYDROGENASE 166 U/L (81-234); PHOSPHORUS 4.6 MG/DL (2.5-4.9); POTASSIUM 4.4 MMOL/L (3.5-5.1); SODIUM 134 MMOL/L (136-145); TRIGLYCERIDES 117 MG/DL (30-150)
[2019-11-25 06:21] LABS: % IRON SATURATION 19 % (15-50); IRON 41 ug/dL (50-175); TOTAL IRON BINDING CAPACITY 214 ug/dL (250-450)
--- NOTE | 2019-11-25 07:02 | Hematology/Onc Progress Note ---
Assessment/Plan Assessment/Plan ASSESSMENT AND RECOMMENDATIONS: # Anemia of chronic disease due to underlying chronic medical issues, multifactorial --> Anemia w/u has been reviewed. --> no evidence of hemolysis is noted, peripheral smear has been reviewed --> hgb goal is >7, transfuse as needed --> currently remains stable, occult blood negative --> hgb 8.4->8.6->8.3->8->8.2->9.2-->9.2->8.9-->8.1-->8.7>9.4-->8.7-->8->7.8-> 7.5-->7.4-->7.5-->8.1 --> some blood loss due to hematuria after inflated reyes pulled 8/6 am --> EPOGEN Started # Thrombocytopenia is likely due to infection --> plt trend 180-->149-->274 --> on abx as needed --> hep and hiv neg #. Leukocytosis with underlying infectionv stress reaction HISTORY --> per id and better --> for infection, ABX ctx/vanc-->off --> wbc 10-->5.9 # Acute kidney injury r/o potential reversible component --> reviewed meds, those that are renally cleared removed --> as per renal recs, appreciated --> cr 3.5-->4.2-->3.4 --> Hd started and dw renal # Hypertension, essential --> sbp goal is <140, consider anti-htn as needed --> currently started on hyralazine 25mg po q6h prn sbp >140 # CHF - hx of CHf --> diuresis with lasix as needed --> cardiology recs appreciated prior adm #. Bilateral lower extremity amputee, metatarsal several years ago #. Dysphagia s/p peg --> peg pulled out and now with gtube #. Hyperkalemia -- kayxelate as needed #. Agitation requires restraints #. Dvt ppx scds --> xarelto=> off The time the note was entered does not necessarily correspond to the time the patient was seen. GREATLY APPRECIATE CONSULTATION. Subjective Constitutional: Denies: no symptoms, chills, fever, malaise, weakness, other HEENT: Denies: no symptoms, eye pain, blurred vision, tearing, double vision, ear pain, ear discharge, nose pain, nose congestion, throat pain, throat swelling, mouth pain, mouth swelling, other Cardiovascular: Denies: no symptoms, chest pain, edema, irregular heart rate, lightheadedness, palpitations, syncope, other Respiratory: Denies: no symptoms, cough, shortness of breath, SOB with excertion, SOB at rest, sputum, wheezing, other Gastrointestinal/Abdominal: Denies: no symptoms, abdomen distended, abdominal pain, black stools, tarry stools, blood in stool, constipated, diarrhea, difficulty swallowing, nausea, poor appetite, poor fluid intake, rectal bleeding , vomiting, other Genitourinary: Denies: no symptoms, burning, discharge, frequency, flank pain, hematuria, incontinence, pain, urgency, other Neurologic/Psychiatric: Denies: no symptoms, anxiety, depressed, emotional problems, headache, numbness, paresthesia, pre-existing deficit, seizure, tingling, tremors, weakness, other Endocrine: Denies: no symptoms, excessive sweating, flushing, intolerance to cold, intolerance to heat, increased hunger, increased thirst, increased urine, unexplained weight gain, unexplained weight loss, other Allergies: Coded Allergies: PENICILLINS (Verified Allergy, Unknown, 10/25/19) tolerated Ceftriaxone Uncoded Allergies: PENICILLIN (Allergy, Unknown, 11/23/19) Subjective 11/23 came back from [facility] due to lack of bipap capability, hgb 7.5 11/24 labs reviewed, remains sob, with a hgb 8.1, no bleeding, dw rn, hold off prbc Objective Objective Current Medications Medications (Trade) Dose Ordered Sig/Cammy Route PRN Reason Start Time Stop Time Status Last Admin Dose Admin Allopurinol (allopurinoL) 300 mg DAILY ORAL 11/24/19 09:00 12/24/19 08:59 11/24/19 10:27 Amlodipine Besylate (Norvasc) 5 mg Q12HR ORAL 11/24/19 09:00 12/24/19 08:59 11/24/19 10:30 Apixaban (Eliquis) 2.5 mg BID ORAL 11/24/19 18:00 02/22/20 17:59 Atenolol (Tenormin) 100 mg DAILY ORAL 11/24/19 09:00 12/24/19 08:59 11/24/19 10:28 Atorvastatin Calcium (Lipitor) 10 mg BEDTIME ORAL 11/24/19 21:00 02/22/20 20:59 Barium Sulfate (Varibar Honey) 250 ml NOW PRN RAD 11/24/19 19:15 11/27/19 19:09 Barium Sulfate (Varibar [place]) 240 ml NOW PRN RAD 11/24/19 19:15 11/27/19 19:09 Barium Sulfate (Varibar Pudding) 230 ml NOW PRN RAD 11/24/19 19:15 11/27/19 19:09 Barium Sulfate (Varibar Thin Liquid powder) 148 gm NOW PRN RAD 11/24/19 19:15 11/27/19 19:09 Docusate Sodium (Colace) 100 mg DAILY ORAL 11/24/19 09:00 12/24/19 08:59 11/24/19 10:27 Lorazepam (Ativan 2mg/ml 1ml) 0.5 mg Q4H PRN IV For Anxiety 11/24/19 21:56 12/01/19 21:55 Pantoprazole (Protonix) 40 mg DAILY ORAL 11/24/19 09:00 12/24/19 08:59 11/24/19 10:27 Sennosides (Senokot) 8.6 mg DAILY PRN ORAL Constipation 11/24/19 02:15 12/24/19 02:14 Last 24 Hour Vital Signs Date Time Temp Pulse Resp B/P (MAP) Pulse Ox O2 Delivery O2 Flow Rate FiO2 11/25/19 05:10 59 18 100 30 11/25/19 04:00 58 11/25/19 04:00 97.5 60 18 139/55 (83) 100 11/25/19 04:00 Bi-pap 11/25/19 04:00 30 11/25/19 03:12 62 18 100 30 11/25/19 00:30 59 18 100 30 11/25/19 00:00 Bi-pap 11/25/19 00:00 56 11/25/19 00:00 30 11/25/19 00:00 97.0 55 20 139/55 (83) 100 11/24/19 23:00 100 11/24/19 21:00 100 11/24/19 21:00 55 129/46 11/24/19 20:00 3.0 11/24/19 20:00 56 11/24/19 20:00 97.5 55 20 129/49 (75) 100 11/24/19 20:00 Bi-pap 11/24/19 19:24 100 11/24/19 16:31 99 11/24/19 16:00 Bi-pap 11/24/19 16:00 58 11/24/19 16:00 97.9 60 18 135/58 (83) 100 11/24/19 16:00 3.0 11/24/19 15:06 99 11/24/19 13:25 98 11/24/19 12:00 30 11/24/19 12:00 61 11/24/19 12:00 97.7 61 15 132/61 (84) 100 11/24/19 12:00 Bi-pap 11/24/19 12:00 97.7 61 15 132/61 (84) 100 11/24/19 10:47 62 19 100 30 11/24/19 10:30 67 143/65 11/24/19 10:28 67 143/65 11/24/19 09:01 67 18 96 30 11/24/19 08:00 98.2 75 21 143/65 (91) 96 11/24/19 08:00 69 11/24/19 08:00 30 11/24/19 08:00 Bi-pap 11/24/19 07:29 65 17 97 30 11/24/19 04:35 62 18 99 30 11/24/19 04:00 70 11/24/19 04:00 30 11/24/19 04:00 Bi-pap 11/24/19 04:00 98.2 79 21 117/68 (84) 98 11/24/19 03:17 66 19 99 30 11/24/19 01:46 69 19 99 30 11/24/19 01:31 Bi-Pap 11/24/19 01:00 97.7 84 20 126/60 (82) 98 11/24/19 01:00 76 11/24/19 00:40 98.0 72 20 128/65 100 Bi-pap 30 11/24/19 00:40 98.6 77 20 139/52 100 Nasal Cannula 4.0 30 11/23/19 22:56 66 20 100 30 11/23/19 22:40 98.6 77 22 139/52 100 Nasal Cannula 4.0 11/23/19 22:40 72 22 Nasal Cannula 4.0 11/23/19 22:28 98.6 72 22 139/52 (81) 100 Nasal Cannula 4.0 Labs Test 11/24/19 01:29 11/24/19 02:08 11/24/19 05:53 11/24/19 09:05 Arterial Blood pH 7.354 (7.350-7.450) Arterial Blood Partial Pressure CO2 59.1 mmHg (35.0-45.0) Arterial Blood Partial Pressure O2 162.4 mmHg (75.0-100.0) Arterial Blood HCO3 32.2 mmol/L (22.0-26.0) Arterial Blood Oxygen Saturation 99.2 % (95-100) Arterial Blood Base Excess 5.7 (-2-2) Kristian Test N/a POC Whole Blood Glucose 140 MG/DL (74-106) White Blood Count 7.1 K/UL (4.8-10.8) Red Blood Count 2.72 M/UL (4.70-6.10) Hemoglobin 7.7 G/DL (14.2-18.0) Hematocrit 25.8 % (42.0-52.0) Mean Corpuscular Volume 95 FL (80-99) Mean Corpuscular Hemoglobin 28.5 PG (27.0-31.0) Mean Corpuscular Hemoglobin Concent 30.0 G/DL (32.0-36.0) Red Cell Distribution Width 15.1 % (11.6-14.8) Platelet Count 284 K/UL (150-450) Mean Platelet Volume 7.3 FL (6.5-10.1) Neutrophils (%) (Auto) % (45.0-75.0) Lymphocytes (%) (Auto) % (20.0-45.0) Monocytes (%) (Auto) % (1.0-10.0) Eosinophils (%) (Auto) % (0.0-3.0) Basophils (%) (Auto) % (0.0-2.0) Differential Total Cells Counted 100 Neutrophils % (Manual) 81 % (45-75) Lymphocytes % (Manual) 12 % (20-45) Monocytes % (Manual) 6 % (1-10) Eosinophils % (Manual) 1 % (0-3) Basophils % (Manual) 0 % (0-2) Band Neutrophils 0 % (0-8) Platelet Estimate Adequate Platelet Morphology Normal Hypochromasia 3+ Anisocytosis 1+ Sodium Level 134 MMOL/L (136-145) Potassium Level 4.2 MMOL/L (3.5-5.1) Chloride Level 97 MMOL/L (98-107) Carbon Dioxide Level 32 MMOL/L (21-32) Anion Gap 5 mmol/L (5-15) Blood Urea Nitrogen 62 mg/dL (7-18) Creatinine 3.9 MG/DL (0.55-1.30) Estimat Glomerular Filtration Rate 14.9 mL/min (>60) Glucose Level 164 MG/DL (74-106) Calcium Level 8.7 MG/DL (8.5-10.1) Phosphorus Level 3.2 MG/DL (2.5-4.9) Ferritin 81 NG/ML (8-388) Total Bilirubin 0.5 MG/DL (0.2-1.0) Aspartate Amino Transf (AST/SGOT) 20 U/L (15-37) Alanine Aminotransferase (ALT/SGPT) 13 U/L (12-78) Alkaline Phosphatase 159 U/L (46-116) Troponin I 0.005 ng/mL (0.000-0.056) C-Reactive Protein, Quantitative 7.1 mg/dL (0.00-0.90) Pro-B-Type Natriuretic Peptide 34601 pg/mL (0-125) Total Protein 6.3 G/DL (6.4-8.2) Albumin 2.3 G/DL (3.4-5.0) Globulin 4.0 g/dL Albumin/Globulin Ratio 0.6 (1.0-2.7) Test 11/24/19 18:35 11/25/19 02:50 POC Whole Blood Glucose 155 MG/DL (74-106) White Blood Count 7.2 K/UL (4.8-10.8) Red Blood Count 2.88 M/UL (4.70-6.10) Hemoglobin 8.1 G/DL (14.2-18.0) Hematocrit 27.3 % (42.0-52.0) Mean Corpuscular Volume 95 FL (80-99) Mean Corpuscular Hemoglobin 28.3 PG (27.0-31.0) Mean Corpuscular Hemoglobin Concent 29.9 G/DL (32.0-36.0) Red Cell Distribution Width 15.0 % (11.6-14.8) Platelet Count 300 K/UL (150-450) Mean Platelet Volume 7.1 FL (6.5-10.1) Neutrophils (%) (Auto) 77.1 % (45.0-75.0) Lymphocytes (%) (Auto) 13.4 % (20.0-45.0) Monocytes (%) (Auto) 7.6 % (1.0-10.0) Eosinophils (%) (Auto) 0.8 % (0.0-3.0) Basophils (%) (Auto) 1.2 % (0.0-2.0) Sodium Level 134 MMOL/L (136-145) Potassium Level 4.4 MMOL/L (3.5-5.1) Chloride Level 96 MMOL/L (98-107) Carbon Dioxide Level 31 MMOL/L (21-32) Anion Gap 7 mmol/L (5-15) Blood Urea Nitrogen 72 mg/dL (7-18) Creatinine 4.2 MG/DL (0.55-1.30) Estimat Glomerular Filtration Rate 13.7 mL/min (>60) Glucose Level 140 MG/DL (74-106) Hemoglobin A1c 6.9 % (4.3-6.0) Calcium Level 8.8 MG/DL (8.5-10.1) Phosphorus Level 4.6 MG/DL (2.5-4.9) Magnesium Level 2.9 MG/DL (1.8-2.4) Iron Level 41 ug/dL (50-175) Total Iron Binding Capacity 214 ug/dL (250-450) Percent Iron Saturation 19 % (15-50) Unsaturated Iron Binding 173 ug/dL (112-346) Ferritin 89 NG/ML (8-388) Total Bilirubin 0.5 MG/DL (0.2-1.0) Gamma Glutamyl Transpeptidase 47 U/L (5-85) Aspartate Amino Transf (AST/SGOT) 16 U/L (15-37) Alanine Aminotransferase (ALT/SGPT) 11 U/L (12-78) Alkaline Phosphatase 147 U/L (46-116) Lactate Dehydrogenase 166 U/L (81-234) Total Creatine Kinase 27 U/L (26-308) Troponin I 0.000 ng/mL (0.000-0.056) Pro-B-Type Natriuretic Peptide 33961 pg/mL (0-125) Total Protein 6.3 G/DL (6.4-8.2) Albumin 2.3 G/DL (3.4-5.0) Globulin 4.0 g/dL Albumin/Globulin Ratio 0.6 (1.0-2.7) Triglycerides Level 117 MG/DL (30-150) Cholesterol Level 115 MG/DL (< 200) LDL Cholesterol 61 mg/dL (<100) HDL Cholesterol 38 MG/DL (40-60) Cholesterol/HDL Ratio 3.0 (3.3-4.4) Vitamin B12 Level 1463 PG/ML (193-986) Folate 18.8 NG/ML (8.6-58.9) Thyroid Stimulating Hormone (TSH) 4.866 uiU/mL (0.358-3.740) Height (Feet): 5 Height (Inches): 6.00 Weight (Pounds): 180 Objective GENERAL: Not in acute distress. HEENT: ncat PULMONARY: Decreased breath sounds. ++ bipap CHEST: ++permacath right chest CARDIOVASCULAR: Regular rate. No S3 or S4. ABDOMEN: Soft, nontender, nondistended.++peg EXTREMITIES: 1+ edema. No cyanosis, swelling, or edema. 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 Melvin Rizzo MD Nov 25, 2019 07:02
[2019-11-25] MEDS: Docusate 100mg cap ORAL SCH (08:02)
[2019-11-25] MEDS: Eliquis 2.5mg tablet ORAL SCH ×2 (08:02→18:00)
--- NOTE | 2019-11-25 12:00 | History and Physical Report ---
DATE OF ADMISSION: 11/23/2019 This is a second admission to [facility] of this 79-year-old patient because of removal of G-tube and lack of machinery support. HISTORY OF PRESENT ILLNESS: The patient was discharged incidentally from this hospital and went to [facility] after . The BiPAP machine was not available and no arrangements for dialysis were done. sent the patient back to the emergency room to be given BiPAP treatment while necessity of arranging for the dialysis and the BiPAP machine was taking place over the next 24 hours. The patient and no medication or feeding could be administered on the same time at the [facility] as they were not having BiPAP machine in facility and the patient had to be transferred to a different facility and changes for this necessity was already started and the patient was admitted. The patient is confused and constantly attempting to remove tracheostomy . PAST MEDICAL HISTORY: He has no any major surgical antecedent, however, he did have dialysis last admission. Medically, he is known to have high blood pressure for many years and the patient was admitted for many years, congestive heart failure for the last five years. He has chronic arrhythmia, disease. He has hyperlipidemia and in the past had multiple episodes of gout allopurinol . ALLERGIES: No known drug allergies. MEDICATIONS: The patient is on lorazepam 0.5 mg p.r.n. for agitation, atorvastatin 10 mg daily, he is on Eliquis 2.5 mg b.i.d. He is on allopurinol 300 mg daily and amiodarone 5 mg q.12. He is on atenolol 100 mg daily and metoprolol 40 mg daily. FAMILY HISTORY: The medical history of his parents is unknown. History about his brothers cannot be obtained. He has one daughter, with a suspicion to have dementia, however, she is in good health. SOCIAL HISTORY: He is a . He was born in [place] and lived in [place] for many years prior to . HABITS: The patient did smoke one pack a day for more than 30 years. He denies drinking. He denies use of illicit drugs. REVIEW OF SYSTEMS: Cardiovascular: The patient denies any chest pain, shortness of breath, palpitations, or dizziness. Pulmonary: The patient denies any cough, wheezing, or expectoration. He does use a BiPAP machine at night . He has no wheezing or no expectoration. Gastrointestinal: His appetite is moderate. His weight is stable. He has no dysphagia. He has frequent dyspepsia for which he is taking pantoprazole. His bowel movements are normal. Genitourinary: The patient denies any dysuria, frequency, incontinence, or nocturia. He does not have any . Joints: The patient denies any pain, swelling, stiffness, cold extremities, photosensitivity, dry eyes, or alopecia. Central Nervous System: His sleep is of good quality. He has no numbness, tingling, seizure disorder, and has no headaches. PHYSICAL EXAMINATION: VITAL SIGNS: Blood pressure was 129/49, his pulse is 55, respirations are 20, and temperature was 97.5. HEENT: Eyes were normal. Pupils were round, equal, and reactive to light and accommodation. Extraocular movements were normal. Temporal arteries were palpable bilaterally. There was minimal bilateral temporal wasting. Visual fan to confrontation. Neglect sign could not be assessed because of lack of the patient cooperation. ENT, mucous membranes were dehydrated. Auditory canals were clear and tympanic membranes could not be visualized. Nasal cavity was not congested. Nasal septum was intact. Soft palate was free of ulcerations. Pharynx was clear from exudate or tonsillar hypertrophy. Uvula danial to phonation. Tongue was moist, midline, and normally papillated. NECK: Supple. There was no goiter. No mass. No lymphadenopathy. No JVD. No bruits. Carotid upstroke was 2+. LUNGS: Clear. HEART: PMI was in fourth left intercostal space in midclavicular line. There was normal S1 and normal S2. There was no murmur. No arrhythmia. No S3. No S4. No pericardial rub. ABDOMEN: Soft, nontender without organomegaly. There were normal bowel sounds without bruits. There is no guarding or rebound tenderness. No ascites. No hernia. No CVA tenderness. Liver span was 8 cm, mostly nontender. EXTREMITIES: No cyanosis, no clubbing, no edema. Extremities were warm. NEUROLOGICAL: Reflexes in biceps, triceps, and brachioradialis were present. Brachioradialis were present. Plantars were in flexion. Cranial nerves II through XII were symmetric and equal. Cerebellar function, there was no tremor. No nystagmus. No extrapyramidal rigidity. Sensory exam to pinprick, cotton touch, position are grossly normal. Motor sign could not be assessed because of lack of patient cooperation. LABORATORY AND DIAGNOSTIC DATA: Hemoglobin is 7.7, hematocrit is 25.8 with MCV of 95, WBC of 7200 and platelets of 284. His BUN and creatinine are 62 and 0.9 respectively. His sodium is 134, potassium 4.2, chloride 97, CO2 is 32. . Troponin was negative. CRP was 7.1. ProBNP . Albumin is 2.3 and total protein is 6.3. There were no imaging studies. IMPRESSION AND PLAN: The patient with gastrostomy tube this case. The patient will need a dairy specialist for his BiPAP and a cardiovascular rn to follow his dialysis. preparation for in progress in regard to outpatient dialysis and BiPAP. Repeat laboratory tests will be done in a.m. Ayush Chang M.D. DR: Janes JOB#: [id number] CC:
--- NOTE | 2019-11-25 19:11 | General Progress Note ---
Assessment/Plan Status Narrative Patient will require G-tube again need to undergo hemodialysis will not be able to go back where he came from and evaluated by the patient is BiPAP and respiratory available repeat laboratory tests will be done in a.m. Subjective Constitutional: Reports: no symptoms, chills, diaphoresis, fever, malaise, weakness, other - Awake alert afebrile no acute distress HEENT: Reports: no symptoms Cardiovascular: Reports: no symptoms, other - Denies any chest pain shortness of breath but occasional dizziness Respiratory: Reports: no symptoms, other - denies any cough wheezing or expectoration Gastrointestinal/Abdominal: Reports: no symptoms, other - Appetite is good Genitourinary: Reports: no symptoms Allergies: Coded Allergies: PENICILLINS (Verified Allergy, Unknown, 10/25/19) tolerated Ceftriaxone Uncoded Allergies: PENICILLIN (Allergy, Unknown, 11/23/19) Objective Last 24 Hour Vital Signs Date Time Temp Pulse Resp B/P (MAP) Pulse Ox O2 Delivery O2 Flow Rate FiO2 11/25/19 16:00 2.0 11/25/19 16:00 61 11/25/19 16:00 Bi-pap 11/25/19 16:00 97.8 64 18 147/68 (94) 100 11/25/19 12:00 2.0 11/25/19 12:00 97.7 65 18 149/65 (93) 100 11/25/19 12:00 Bi-pap 11/25/19 11:58 63 11/25/19 09:21 58 19 99 30 11/25/19 08:00 30 11/25/19 08:00 59 11/25/19 08:00 96.8 65 18 142/56 (84) 100 11/25/19 08:00 Bi-pap 11/25/19 07:29 57 16 100 30 11/25/19 05:10 59 18 100 30 11/25/19 04:00 58 11/25/19 04:00 97.5 60 18 139/55 (83) 100 11/25/19 04:00 Bi-pap 11/25/19 04:00 30 11/25/19 03:12 62 18 100 30 11/25/19 00:30 59 18 100 30 11/25/19 00:00 Bi-pap 11/25/19 00:00 56 11/25/19 00:00 30 11/25/19 00:00 97.0 55 20 139/55 (83) 100 11/24/19 23:00 100 11/24/19 21:00 100 11/24/19 21:00 55 129/46 11/24/19 20:00 3.0 11/24/19 20:00 56 11/24/19 20:00 97.5 55 20 129/49 (75) 100 11/24/19 20:00 Bi-pap 11/24/19 19:24 100 Laboratory Tests 11/25/19 02:50: White Blood Count 7.2, Red Blood Count 2.88L, Hemoglobin 8.1L, Hematocrit 27.3L , Mean Corpuscular Volume 95, Mean Corpuscular Hemoglobin 28.3, Mean Corpuscular Hemoglobin Concent 29.9L, Red Cell Distribution Width 15.0H, Platelet Count 300, Mean Platelet Volume 7.1, Neutrophils (%) (Auto) 77.1H, Lymphocytes (%) (Auto) 13.4L, Monocytes (%) (Auto) 7.6, Eosinophils (%) (Auto) 0.8, Basophils (%) (Auto) 1.2, Sodium Level 134L, Potassium Level 4.4, Chloride Level 96L, Carbon Dioxide Level 31, Anion Gap 7, Blood Urea Nitrogen 72H, Creatinine 4.2H, Estimat Glomerular Filtration Rate 13.7, Glucose Level 140H, Hemoglobin A1c 6.9H, Calcium Level 8.8, Phosphorus Level 4.6, Magnesium Level 2.9H, Iron Level 41L, Total Iron Binding Capacity 214L, Percent Iron Saturation 19, Unsaturated Iron Binding 173, Ferritin 89, Total Bilirubin 0.5, Gamma Glutamyl Transpeptidase 47, Aspartate Amino Transf (AST/SGOT) 16, Alanine Aminotransferase (ALT/SGPT) 11L, Alkaline Phosphatase 147H, Lactate Dehydrogenase 166, Total Creatine Kinase 27, Troponin I 0.000, Pro-B-Type Natriuretic Peptide 92096E, Total Protein 6.3L, Albumin 2.3L, Globulin 4.0, Albumin/Globulin Ratio 0.6L, Triglycerides Level 117, Cholesterol Level 115, LDL Cholesterol 61, HDL Cholesterol 38L, Cholesterol/HDL Ratio 3.0L, Vitamin B12 Level 1463H, Folate 18.8, Thyroid Stimulating Hormone (TSH) 4.866H Height (Feet): 5 Height (Inches): 6.00 Weight (Pounds): 180 General Appearance: no apparent distress, alert, other - attetive EENT: normal ENT inspection Neck: supple, other - No goiter no mass no lymphadenopathy Cardiovascular: normal rate, regular rhythm, no gallop/murmur, no JVD Respiratory/Chest: lungs clear, normal breath sounds, no respiratory distress Abdomen: normal bowel sounds, non tender, soft, no organomegaly, no mass Extremities: non-tender, other - No cyanosis no clubbing no edema Neurologic: alert, oriented x 3, responsive, other - oriented x3 at the time of this dictation apparently patient has amnesia of what was talking to him Skin: warm/dry Ayush Chang MD Nov 25, 2019 19:11
--- NOTE | 2019-11-25 19:33 | Nephrology Progress Note ---
Assessment/Plan Problem List: (1) Respiratory distress (2) Diabetes mellitus (3) Hypertension (4) Renal failure (ARF), acute on chronic Assessment Patient's current problem is dyspnea Most likely volume overload versus pneumonitis Other conditions: Renal failure (ARF), acute on chronic h/o Metabolic acidosis h/oElectrolyte imbalance Hyponatremia and hyperkalemia h/oAnemia h/o CHF (congestive heart failure) Plan November 24 : Late note entry due to system problem at the [facility] today. Patient due for dialysis and ultrafiltration today. Labs reviewed. Chest x-ray results not available on EMR. Last dialysis November 21. Continue pulmonary toilet. Patient remains on BiPAP. Will check labs tomorrow. Subjective ROS Limited/Unobtainable: No Constitutional: Reports: malaise Objective Objective Last 24 Hour Vital Signs Date Time Temp Pulse Resp B/P (MAP) Pulse Ox O2 Delivery O2 Flow Rate FiO2 11/25/19 16:00 2.0 11/25/19 16:00 61 11/25/19 16:00 Bi-pap 11/25/19 16:00 97.8 64 18 147/68 (94) 100 11/25/19 12:00 2.0 11/25/19 12:00 97.7 65 18 149/65 (93) 100 11/25/19 12:00 Bi-pap 11/25/19 11:58 63 11/25/19 09:21 58 19 99 30 11/25/19 08:00 30 11/25/19 08:00 59 11/25/19 08:00 96.8 65 18 142/56 (84) 100 11/25/19 08:00 Bi-pap 11/25/19 07:29 57 16 100 30 11/25/19 05:10 59 18 100 30 11/25/19 04:00 58 11/25/19 04:00 97.5 60 18 139/55 (83) 100 11/25/19 04:00 Bi-pap 11/25/19 04:00 30 11/25/19 03:12 62 18 100 30 11/25/19 00:30 59 18 100 30 11/25/19 00:00 Bi-pap 11/25/19 00:00 56 11/25/19 00:00 30 11/25/19 00:00 97.0 55 20 139/55 (83) 100 9/2/20 23:00 100 11/24/19 21:00 100 11/24/19 21:00 55 129/46 11/24/19 20:00 3.0 11/24/19 20:00 56 11/24/19 20:00 97.5 55 20 129/49 (75) 100 11/24/19 20:00 Bi-pap Current Medications Medications (Trade) Dose Ordered Sig/Cammy Route PRN Reason Start Time Stop Time Status Last Admin Dose Admin Allopurinol (allopurinoL) 300 mg DAILY ORAL 11/24/19 09:00 12/24/19 08:59 11/24/19 10:27 Amlodipine Besylate (Norvasc) 5 mg Q12HR ORAL 11/24/19 09:00 12/24/19 08:59 11/24/19 10:30 Apixaban (Eliquis) 2.5 mg BID ORAL 11/24/19 18:00 02/22/20 17:59 Atenolol (Tenormin) 100 mg DAILY ORAL 11/24/19 09:00 12/24/19 08:59 11/24/19 10:28 Atorvastatin Calcium (Lipitor) 10 mg BEDTIME ORAL 11/24/19 21:00 02/22/20 20:59 Barium Sulfate (Varibar Honey) 250 ml NOW PRN [facility] RAD 11/24/19 19:15 11/27/19 19:09 Barium Sulfate (Varibar [place]) 240 ml NOW PRN MC RAD 11/24/19 19:15 11/27/19 19:09 Barium Sulfate (Varibar Pudding) 230 ml NOW PRN MC RAD 11/24/19 19:15 11/27/19 19:09 Barium Sulfate (Varibar Thin Liquid powder) 148 gm NOW PRN [facility] RAD 11/24/19 19:15 11/27/19 19:09 Docusate Sodium (Colace) 100 mg DAILY ORAL 11/24/19 09:00 12/24/19 08:59 11/24/19 10:27 Lorazepam (Ativan 2mg/ml 1ml) 0.5 mg Q4H PRN IV For Anxiety 11/24/19 21:56 12/01/19 21:55 Pantoprazole (Protonix) 40 mg DAILY ORAL 11/24/19 09:00 12/24/19 08:59 11/24/19 10:27 Sennosides (Senokot) 8.6 mg DAILY PRN ORAL Constipation 11/24/19 02:15 12/24/19 02:14 Laboratory Tests 11/25/19 02:50: White Blood Count 7.2, Red Blood Count 2.88L, Hemoglobin 8.1L, Hematocrit 27.3L , Mean Corpuscular Volume 95, Mean Corpuscular Hemoglobin 28.3, Mean Corpuscular Hemoglobin Concent 29.9L, Red Cell Distribution Width 15.0H, Platelet Count 300, Mean Platelet Volume 7.1, Neutrophils (%) (Auto) 77.1H, Lymphocytes (%) (Auto) 13.4L, Monocytes (%) (Auto) 7.6, Eosinophils (%) (Auto) 0.8, Basophils (%) (Auto) 1.2, Sodium Level 134L, Potassium Level 4.4, Chloride Level 96L, Carbon Dioxide Level 31, Anion Gap 7, Blood Urea Nitrogen 72H, Creatinine 4.2H, Estimat Glomerular Filtration Rate 13.7, Glucose Level 140H, Hemoglobin A1c 6.9H, Calcium Level 8.8, Phosphorus Level 4.6, Magnesium Level 2.9H, Iron Level 41L, Total Iron Binding Capacity 214L, Percent Iron Saturation 19, Unsaturated Iron Binding 173, Ferritin 89, Total Bilirubin 0.5, Gamma Glutamyl Transpeptidase 47, Aspartate Amino Transf (AST/SGOT) 16, Alanine Aminotransferase (ALT/SGPT) 11L, Alkaline Phosphatase 147H, Lactate Dehydrogenase 166, Total Creatine Kinase 27, Troponin I 0.000, Pro-B-Type Natriuretic Peptide 92247K, Total Protein 6.3L, Albumin 2.3L, Globulin 4.0, Albumin/Globulin Ratio 0.6L, Triglycerides Level 117, Cholesterol Level 115, LDL Cholesterol 61, HDL Cholesterol 38L, Cholesterol/HDL Ratio 3.0L, Vitamin B12 Level 1463H, Folate 18.8, Thyroid Stimulating Hormone (TSH) 4.866H Height (Feet): 5 Height (Inches): 6.00 Weight (Pounds): 180 General Appearance: lethargic EENT: other - On BiPAP Cardiovascular: normal rate Respiratory/Chest: decreased breath sounds Abdomen: distended Naveed Vanegas MD Nov 25, 2019 19:33
--- NOTE | 2019-11-25 21:57 | Consultation ---
Hanna Reema FIELD SUPPORT SPECIALIST 11/25/19 2157: History of Present Illness General Date patient seen: Nov 25, 2019 Time patient seen: 14:30 Chief Complaint: Dyspnea/Respdistress Referring physician: Dr Chang Reason for Consultation: hypoxia Present Illness HPI 79 years old male with PMH of acute hypercapnic respiratory failure and chronic CO2 retention , possible obstructive sleep apnea, hypertension, PVD, diabetes mellitus, ESRD, requiring start of hemodialysis on prior admission , dysphagia , feeding by G-tube (requiring replacement of G-tube since the first time patient pulled it out), was recently hospitalized at [facility]. At that time patient required some time on the BiPAP to resolve hypercapnia. Hypercapnia improved , and patient was able to be weaned from the BiPAP and placed on oxygen via nasal cannula. Standing order was for BiPAP to be used at nighttime and as needed. Patient was recommended to have to have Trilogy vent to be arranged upon discharge or Bipap at night. For the last week at the hospital patient continuously declined use of the BiPAP at night, however unclear how ; since he was on restraints due to prior episode of pulling out G-tube. Pulse oximetry remained stable on oxygen via nasal cannula. Case management was unable to find SNF with BiPAP. Due to continuous refusal of BiPAP and stable pulse oximetry via nasal cannula, patient was discharged to senior care facility without BiPAP. I had an extensive conversation with daughter after discharge , who wanted her dad to be on a BiPAP as needed, despite his refusal. She told me that she will try to bring him back to the hospital with attempt to find another facility which had BiPAP. Patient was sent to ER upon his primary physician for placement to a new senior care facility. Upon evaluation in emergency room pulse oximetry was 100% on 4 L of oxygen via nasal cannula. ABG revealed PCO2 of 59, no acidosis . Laboratory work-up will no leukocytosis, anemia. BUN 62, creatinine 2.9, consistent with known history of end-stage renal disease. proBNP 34066. Troponin negative. Rapid COVID-19 was negative. In emergency department patient placed on BiPAP and admitted for further management . By the time I saw him, he was able to be weaned from the BiPAP to nasal cannula 2L . No signs of respiratory distress. Allergies: Coded Allergies: PENICILLINS (Verified Allergy, Unknown, 10/25/19) tolerated Ceftriaxone Uncoded Allergies: PENICILLIN (Allergy, Unknown, 11/23/19) Medication History Scheduled Allopurinol* (Allopurinol*), 300 MG ORAL DAILY, (Reported) Amlodipine Besylate* (Amlodipine Besylate*), 5 MG ORAL BID, (Reported) Apixaban (Eliquis), 2.5 MG PO BID, (Reported) Atenolol* (Tenormin*), 100 MG ORAL DAILY, (Reported) Atorvastatin Calcium* (Atorvastatin Calcium*), 10 MG ORAL BEDTIME, (Reported) Docusate Sodium* (Colace*), 100 MG ORAL DAILY, (Reported) Insulin Aspart (Novolog Flexpen), 0 UNITS SUBQ BEFORE MEALS AND HS Pantoprazole* (Protonix*), 40 MG ORAL DAILY, (Reported) Pioglitazone Hcl* (Actos*), 15 MG ORAL DAILY, (Reported) Rivaroxaban (Xarelto*), 20 MG ORAL DAILY, (Reported) [Cholecalciferol], 125 MCG PO DAILY, (Reported) Scheduled PRN Melatonin (Melatonin), 1 MG SL BEDTIME PRN for Insomnia, (Reported) Melatonin/Pyridoxine HCl (B6) (Melatonin 3 mg Tablet), 1 EACH PO HS PRN for Insomnia, (Reported) Sennosides (Senna Laxative), 8.6 MG PO HS PRN for Constipation, (Reported) Miscellaneous Medications Apixaban (Eliquis), 2.5 MG PO, (Reported) Hydroxyzine Hcl (Hydroxyzine Hcl), 50 MG PO, (Reported) Patient History Healthcare decision maker Resuscitation status Advanced Directive on File Past Medical/Surgical History Past Medical/Surgical History: (1) Osteomyelitis (2) Acute encephalopathy (3) Renal failure (ARF), acute on chronic (4) Diabetes mellitus (5) Hypertension (6) Cholelithiasis Review of Systems All Other Systems: negative except mentioned in HPI ROS Narrative unable to get due to patient's mental status Physical Exam General Appearance: alert - confused, Iranian speaking Lines, tubes and drains: peripheral HEENT: normocephalic, atraumatic, anicteric Neck: supple Respiratory/Chest: lungs clear, no respiratory distress Cardiovascular/Chest: normal rate Abdomen: non tender, soft, feeding tube - G tube Extremities: other - BL foot TMA Neurologic: abnormal gait, alert, responsive Musculoskeletal: atrophy - BLE Last 24 Hour Vital Signs Date Time Temp Pulse Resp B/P (MAP) Pulse Ox O2 Delivery O2 Flow Rate FiO2 11/25/19 20:00 97.9 60 20 130/53 (78) 99 11/25/19 20:00 3.0 11/25/19 19:36 60 11/25/19 16:00 2.0 11/25/19 16:00 61 11/25/19 16:00 Bi-pap 11/25/19 16:00 97.8 64 18 147/68 (94) 100 11/25/19 12:00 2.0 11/25/19 12:00 97.7 65 18 149/65 (93) 100 11/25/19 12:00 Bi-pap 11/25/19 11:58 63 11/25/19 09:21 58 19 99 30 11/25/19 08:00 30 11/25/19 08:00 59 11/25/19 08:00 96.8 65 18 142/56 (84) 100 11/25/19 08:00 Bi-pap 11/25/19 07:29 57 16 100 30 11/25/19 05:10 59 18 100 30 11/25/19 04:00 58 11/25/19 04:00 97.5 60 18 139/55 (83) 100 11/25/19 04:00 Bi-pap 11/25/19 04:00 30 11/25/19 03:12 62 18 100 30 11/25/19 00:30 59 18 100 30 11/25/19 00:00 Bi-pap 11/25/19 00:00 56 11/25/19 00:00 30 11/25/19 00:00 97.0 55 20 139/55 (83) 100 11/24/19 23:00 100 Laboratory Tests Test 11/25/19 02:50 White Blood Count 7.2 K/UL (4.8-10.8) Red Blood Count 2.88 M/UL (4.70-6.10) L Hemoglobin 8.1 G/DL (14.2-18.0) L Hematocrit 27.3 % (42.0-52.0) L Mean Corpuscular Volume 95 FL (80-99) Mean Corpuscular Hemoglobin 28.3 PG (27.0-31.0) Mean Corpuscular Hemoglobin Concent 29.9 G/DL (32.0-36.0) L Red Cell Distribution Width 15.0 % (11.6-14.8) H Platelet Count 300 K/UL (150-450) Mean Platelet Volume 7.1 FL (6.5-10.1) Neutrophils (%) (Auto) 77.1 % (45.0-75.0) H Lymphocytes (%) (Auto) 13.4 % (20.0-45.0) L Monocytes (%) (Auto) 7.6 % (1.0-10.0) Eosinophils (%) (Auto) 0.8 % (0.0-3.0) Basophils (%) (Auto) 1.2 % (0.0-2.0) Sodium Level 134 MMOL/L (136-145) L Potassium Level 4.4 MMOL/L (3.5-5.1) Chloride Level 96 MMOL/L (98-107) L Carbon Dioxide Level 31 MMOL/L (21-32) Anion Gap 7 mmol/L (5-15) Blood Urea Nitrogen 72 mg/dL (7-18) H Creatinine 4.2 MG/DL (0.55-1.30) H Estimat Glomerular Filtration Rate 13.7 mL/min (>60) Glucose Level 140 MG/DL (74-106) H Hemoglobin A1c 6.9 % (4.3-6.0) H Calcium Level 8.8 MG/DL (8.5-10.1) Phosphorus Level 4.6 MG/DL (2.5-4.9) Magnesium Level 2.9 MG/DL (1.8-2.4) H Iron Level 41 ug/dL (50-175) L Total Iron Binding Capacity 214 ug/dL (250-450) L Percent Iron Saturation 19 % (15-50) Unsaturated Iron Binding 173 ug/dL (112-346) Ferritin 89 NG/ML (8-388) Total Bilirubin 0.5 MG/DL (0.2-1.0) Gamma Glutamyl Transpeptidase 47 U/L (5-85) Aspartate Amino Transf (AST/SGOT) 16 U/L (15-37) Alanine Aminotransferase (ALT/SGPT) 11 U/L (12-78) L Alkaline Phosphatase 147 U/L (46-116) H Lactate Dehydrogenase 166 U/L (81-234) Total Creatine Kinase 27 U/L (26-308) Troponin I 0.000 ng/mL (0.000-0.056) Pro-B-Type Natriuretic Peptide 99500 pg/mL (0-125) H Total Protein 6.3 G/DL (6.4-8.2) L Albumin 2.3 G/DL (3.4-5.0) L Globulin 4.0 g/dL Albumin/Globulin Ratio 0.6 (1.0-2.7) L Triglycerides Level 117 MG/DL (30-150) Cholesterol Level 115 MG/DL (< 200) LDL Cholesterol 61 mg/dL (<100) HDL Cholesterol 38 MG/DL (40-60) L Cholesterol/HDL Ratio 3.0 (3.3-4.4) L Vitamin B12 Level 1463 PG/ML (193-986) H Folate 18.8 NG/ML (8.6-58.9) Thyroid Stimulating Hormone (TSH) 4.866 uiU/mL (0.358-3.740) Height (Feet): 5 Height (Inches): 6.00 Weight (Pounds): 180 Medications Current Medications Medications (Trade) Dose Ordered Sig/Cammy Route PRN Reason Start Time Stop Time Status Last Admin Dose Admin Allopurinol (allopurinoL) 300 mg DAILY ORAL 11/24/19 09:00 12/24/19 08:59 11/24/19 10:27 Amlodipine Besylate (Norvasc) 5 mg Q12HR ORAL 11/24/19 09:00 12/24/19 08:59 11/24/19 10:30 Apixaban (Eliquis) 2.5 mg BID ORAL 11/24/19 18:00 02/22/20 17:59 Atenolol (Tenormin) 100 mg DAILY ORAL 11/24/19 09:00 12/24/19 08:59 11/24/19 10:28 Atorvastatin Calcium (Lipitor) 10 mg BEDTIME ORAL 11/24/19 21:00 02/22/20 20:59 Barium Sulfate (Varibar Honey) 250 ml NOW PRN RAD 11/24/19 19:15 11/27/19 19:09 Barium Sulfate (Varibar [place]) 240 ml NOW PRN RAD 11/24/19 19:15 11/27/19 19:09 Barium Sulfate (Varibar Pudding) 230 ml NOW PRN RAD 11/24/19 19:15 11/27/19 19:09 Barium Sulfate (Varibar Thin Liquid powder) 148 gm NOW PRN [facility] 11/24/19 19:15 11/27/19 19:09 Chlorhexidine Gluconate (Yi-Hex 2%) 1 applic DAILY@2000 TOPIC 11/26/19 20:00 02/24/20 19:59 UNV Docusate Sodium (Colace) 100 mg DAILY ORAL 11/24/19 09:00 12/24/19 08:59 11/24/19 10:27 Lorazepam (Ativan 2mg/ml 1ml) 0.5 mg Q4H PRN IV For Anxiety 11/24/19 21:56 12/01/19 21:55 Pantoprazole (Protonix) 40 mg DAILY ORAL 11/24/19 09:00 12/24/19 08:59 11/24/19 10:27 Sennosides (Senokot) 8.6 mg DAILY PRN ORAL Constipation 11/24/19 02:15 12/24/19 02:14 Assessment/Plan Assessment/Plan: ASSESSMENT Prior acute hypoxemic hypercapnic respiratory failure requiring BiPAP Chronic CO2 retention Possible DAYANA Aspiration risk Dysphagia , s/p PEG , pulled out, s/p replacement of PEG 11/16 Acute kidney injury on chronic kidney disease, requiring start of HD 10/30 Anemia of chronic kidney disease Diabetes mellitus HTN PVD with hx of bilateral foot MTA Refusal of care PLAN OF CARE tele BiPAP at HS and prn currently on O2 3 L via NC titrate O2, pulm toilet patient likely has DAYANA. recommend sleep study as OP fup with CXR ABG prn rapid COVID NGT, BiPAP prn and HS ethics eval if can refuse BiPAP ( patient with dementia, confusion), daughter wants BiPAP and unclear how he refused if was on restraints? in our opinion BiPAP should be on standing order and available in the facility when patient will be transferred need formal polysomnogram to be done as OP completed Rx for PNA on prior admission Venous Duplex BLE 10/25 -> NGT on Eliquis aspir precautions, new BSSE pending TF via GT for now protein supplements HD as per nephro recs monitor volumes, renal paramerts, lytes s/p placement of permanent HD catheter R chest 11/07 s/p removal of temporary HD catheter by surgeon ECHO with pEF 55-60% rate control with BB, HR stable on chronic a/c , was on hold for PEG, Eliquis resumed BP management with CCB and BB, optimize as needed continue statin prior HgA1c -6.1 hold oral anti-glycemic monitor HH with goal to keep Hgb above 7 anemia w/up prior noted , heme on board on EPO GI prophayxlis supportive care case discussed and evaluated by supervising physician Note; time of this note does not reflect the actual time patient was seen. Jini was down Jonathon Pabon MD 11/26/19 1248: History of Present Illness General Chief Complaint: Dyspnea/Respdistress Present Illness Allergies: Coded Allergies: PENICILLINS (Verified Allergy, Unknown, 10/25/19) tolerated Ceftriaxone Uncoded Allergies: PENICILLIN (Allergy, Unknown, 11/23/19) Medication History Scheduled Allopurinol* (Allopurinol*), 300 MG ORAL DAILY, (Reported) Amlodipine Besylate* (Amlodipine Besylate*), 5 MG ORAL BID, (Reported) Apixaban (Eliquis), 2.5 MG PO BID, (Reported) Atenolol* (Tenormin*), 100 MG ORAL DAILY, (Reported) Atorvastatin Calcium* (Atorvastatin Calcium*), 10 MG ORAL BEDTIME, (Reported) Docusate Sodium* (Colace*), 100 MG ORAL DAILY, (Reported) Insulin Aspart (Novolog Flexpen), 0 UNITS SUBQ BEFORE MEALS AND HS Pantoprazole* (Protonix*), 40 MG ORAL DAILY, (Reported) Pioglitazone Hcl* (Actos*), 15 MG ORAL DAILY, (Reported) Rivaroxaban (Xarelto*), 20 MG ORAL DAILY, (Reported) [Cholecalciferol], 125 MCG PO DAILY, (Reported) Scheduled PRN Melatonin (Melatonin), 1 MG SL BEDTIME PRN for Insomnia, (Reported) Melatonin/Pyridoxine HCl (B6) (Melatonin 3 mg Tablet), 1 EACH PO HS PRN for Insomnia, (Reported) Sennosides (Senna Laxative), 8.6 MG PO HS PRN for Constipation, (Reported) Miscellaneous Medications Apixaban (Eliquis), 2.5 MG PO, (Reported) Hydroxyzine Hcl (Hydroxyzine Hcl), 50 MG PO, (Reported) Assessment/Plan Assessment/Plan: Patient seen and examined with FIELD SUPPORT SPECIALIST. Agree with above A&P as it reflects our joint deliberations. Reema Hanna NP Nov 25, 2019 21:57 Jonathon Pabon MD Nov 26, 2019 12:48
[2019-11-26] VITALS (10 sets, daily range): BP systolic 140–163; BP diastolic 43–65
[2019-11-26 05:28] LABS: BASOPHILS % (AUTO) 0.7 % (0.0-2.0); EOSINOPHILS % (AUTO) 0.8 % (0.0-3.0); HEMATOCRIT 26.8 % (42.0-52.0); LYMPHOCYTES % (AUTO) 12.8 % (20.0-45.0); MEAN CORPUSCULAR VOLUME 95 FL (80-99); MONOCYTES % (AUTO) 8.2 % (1.0-10.0); NEUTROPHILS % (AUTO) 77.5 % (45.0-75.0); PLATELET COUNT 300 K/UL (150-450); RED BLOOD COUNT 2.84 M/UL (4.70-6.10); WHITE BLOOD COUNT 6.1 K/UL (4.8-10.8)
[2019-11-26 05:45] LABS: ALANINE AMINOTRANSFERASE 10 U/L (12-78); ALBUMIN 2.2 G/DL (3.4-5.0); ALBUMIN/GLOBULIN RATIO 0.6 (1.0-2.7); ALKALINE PHOSPHATASE 132 U/L (46-116); ANION GAP 7 mmol/L (5-15); ASPARTATE AMINO TRANSFERASE 18 U/L (15-37); BILIRUBIN,TOTAL 0.6 MG/DL (0.2-1.0); BLOOD UREA NITROGEN 33 mg/dL (7-18); CALCIUM 8.3 MG/DL (8.5-10.1); CARBON DIOXIDE 31 MMOL/L (21-32); CHLORIDE 101 MMOL/L (98-107); CREATININE 2.4 MG/DL (0.55-1.30); POTASSIUM 3.9 MMOL/L (3.5-5.1); SODIUM 139 MMOL/L (136-145)
[2019-11-26] MEDS: Eliquis 2.5mg tablet ORAL SCH ×3 (09:00→17:35)
[2019-11-26] MEDS: Docusate 100mg cap ORAL SCH ×2 (09:00→10:30)
--- NOTE | 2019-11-26 09:59 | Pulmonology Progress Note ---
Reema Hanna INDUSTRIAL CUSTODIAN 11/26/19 0959: Subjective ROS Limited/Unobtainable: Yes Allergies: Coded Allergies: PENICILLINS (Verified Allergy, Unknown, 10/25/19) tolerated Ceftriaxone Uncoded Allergies: PENICILLIN (Allergy, Unknown, 11/23/19) Subjective transferred to [facility] off BiPAP now on O2 via NC, pulse ox stable no signs of resp distress Objective Last 24 Hour Vital Signs Date Time Temp Pulse Resp B/P (MAP) Pulse Ox O2 Delivery O2 Flow Rate FiO2 11/26/19 08:00 69 11/26/19 07:56 99 Nasal Cannula 2.0 28 11/26/19 04:47 67 17 100 30 11/26/19 04:00 98.7 60 18 155/65 (95) 99 11/26/19 04:00 60 11/26/19 04:00 Bi-pap 11/26/19 04:00 30 11/26/19 03:00 62 15 100 30 11/26/19 00:43 58 18 100 30 11/26/19 00:00 60 11/26/19 00:00 30 11/26/19 00:00 Bi-pap 11/26/19 00:00 98.2 60 20 147/59 (88) 99 11/25/19 22:10 30 11/25/19 22:09 67 17 100 30 11/25/19 21:00 60 130/53 11/25/19 20:00 97.9 60 20 130/53 (78) 99 11/25/19 20:00 Nasal Cannula 3.0 11/25/19 20:00 3.0 11/25/19 19:36 60 11/25/19 16:00 2.0 11/25/19 16:00 61 11/25/19 16:00 Bi-pap 11/25/19 16:00 97.8 64 18 147/68 (94) 100 11/25/19 12:00 2.0 11/25/19 12:00 97.7 65 18 149/65 (93) 100 11/25/19 12:00 Bi-pap 11/25/19 11:58 63 Intake and Output 11/25/19 11/26/19 19:00 07:00 Output Total 2200 ml Balance -2200 ml Output Urine Total 200 ml Hemodialysis UF 2000 ml # Bowel Movements 3 Objective General Appearance: alert , confused, Ghanaian speaking Lines, tubes and drains: peripheral HEENT: normocephalic, atraumatic, anicteric Neck: supple Respiratory/Chest: lungs clear, no respiratory distress Cardiovascular/Chest: normal rate Abdomen: non tender, soft, feeding tube - G tube Extremities: BL foot TMA Neurologic: abnormal gait, alert, confused, responsive Musculoskeletal: atrophy - BLE Microbiology Date/Time Source Procedure Growth Status 11/23/19 23:54 Nasopharynx SARS-CoV-2 RdRp Gene Assay - Final Complete Laboratory Tests 11/26/19 03:25: White Blood Count 6.1, Red Blood Count 2.84L, Hemoglobin 8.0L, Hematocrit 26.8L , Mean Corpuscular Volume 95, Mean Corpuscular Hemoglobin 28.2, Mean Corpuscular Hemoglobin Concent 29.8L, Red Cell Distribution Width 15.0H, Platelet Count 300, Mean Platelet Volume 6.4L, Neutrophils (%) (Auto) 77.5H, Lymphocytes (%) (Auto) 12.8L, Monocytes (%) (Auto) 8.2, Eosinophils (%) (Auto) 0.8, Basophils (%) (Auto) 0.7, Sodium Level 139, Potassium Level 3.9, Chloride Level 101, Carbon Dioxide Level 31, Anion Gap 7, Blood Urea Nitrogen 33H, Creatinine 2.4H, Estimat Glomerular Filtration Rate 26.1, Glucose Level 91, Calcium Level 8.3L, Phosphorus Level 3.0, Magnesium Level 2.3, Total Bilirubin 0.6, Aspartate Amino Transf (AST/SGOT) 18, Alanine Aminotransferase (ALT/SGPT) 10L, Alkaline Phosphatase 132H, C-Reactive Protein, Quantitative 5.7H, Total Protein 6.1L, Albumin 2.2L, Globulin 3.9, Albumin/Globulin Ratio 0.6L Current Medications Medications (Trade) Dose Ordered Sig/Cammy Route PRN Reason Start Time Stop Time Status Last Admin Dose Admin Allopurinol (allopurinoL) 300 mg DAILY ORAL 11/26/19 10:30 12/24/19 10:29 Amlodipine Besylate (Norvasc) 5 mg Q12HR ORAL 11/26/19 10:30 12/24/19 10:29 Apixaban (Eliquis) 2.5 mg BID ORAL 11/26/19 10:30 02/22/20 10:29 Atenolol (Tenormin) 100 mg DAILY ORAL 11/26/19 10:30 12/24/19 10:29 Atorvastatin Calcium (Lipitor) 10 mg BEDTIME ORAL 11/26/19 21:00 02/22/20 20:59 Chlorhexidine Gluconate (Yi-Hex 2%) 1 applic DAILY@1999 TOPIC 11/26/19 20:00 02/24/20 19:59 Docusate Sodium (Colace) 100 mg DAILY ORAL 11/26/19 09:30 12/24/19 08:59 UNV Lorazepam (Ativan 2mg/ml 1ml) 0.5 mg Q4H PRN IV For Anxiety 11/26/19 10:00 12/01/19 21:55 UNV Pantoprazole (Protonix) 40 mg DAILY ORAL 11/26/19 09:30 12/24/19 08:59 UNV Sennosides (Senokot) 8.6 mg DAILY PRN ORAL Constipation 11/27/19 09:00 12/24/19 02:14 UNV Assessment/Plan Assessment/Plan ASSESSMENT Prior acute hypoxemic hypercapnic respiratory failure requiring BiPAP Chronic CO2 retention Possible DAYANA Aspiration risk s/p recent PNA Dysphagia , s/p PEG , pulled out, s/p replacement of PEG 11/16 Acute kidney injury on chronic kidney disease, requiring start of HD 10/30 Anemia of chronic kidney disease Diabetes mellitus HTN PVD with hx of bilateral foot MTA Refusal of care PLAN OF CARE tele BiPAP at HS and prn currently on O2 3 L via NC titrate O2, pulm toilet patient likely has DAYANA. recommend sleep study as OP fup with CXR ABG prn rapid COVID NGT, BiPAP prn and HS ethics eval if pt can refuse BiPAP ( patient with dementia, confusion), daughter wants BiPAP and unclear how he refused if was on restraints? in our opinion BiPAP should be on standing order and available in the facility when patient will be transferred need formal polysomnogram to be done as OP completed Rx for PNA on prior admission Venous Duplex BLE 10/25 -> NGT on Eliquis aspir precautions, new BSSE pending TF via GT for now protein supplements HD as per nephro recs monitor volumes, renal paramerts, lytes s/p placement of permanent HD catheter R chest 8/17 s/p removal of temporary HD catheter by surgeon ECHO with pEF 55-60% rate control with BB, HR stable on chronic a/c , was on hold for PEG, Eliquis resumed BP management with CCB and BB, optimize as needed continue statin prior HgA1c -6.1 hold oral anti-glycemic monitor HH with goal to keep Hgb above 7 anemia w/up prior noted , heme on board on EPO GI prophayxlis supportive care case discussed and evaluated by supervising physician Jonathon Pabon MD 11/26/19 1247: Subjective Allergies: Coded Allergies: PENICILLINS (Verified Allergy, Unknown, 10/25/19) tolerated Ceftriaxone Uncoded Allergies: PENICILLIN (Allergy, Unknown, 11/23/19) Assessment/Plan Assessment/Plan Patient seen and examined with INDUSTRIAL CUSTODIAN. Agree with above A&P as it reflects our joint deliberations. Reema Hanna INDUSTRIAL CUSTODIAN Nov 26, 2019 09:59 Jonathon Pabon MD Nov 26, 2019 12:47
[2019-11-26] MEDS ORDERED: LORazepam Inj 2mg/ml 1ml IV PRN (10:30)
[2019-11-26] MEDS ORDERED: Sennosides 8.6mg tab ORAL PRN (10:30)
--- NOTE | 2019-11-26 10:43 | Pre-Procedure Note/Attestation ---
Pre-Procedure Note/Attestation Complete Prior to Procedure Planned Procedure: not applicable Procedure Narrative: egd/peg Indications for Procedure Pre-Operative Diagnosis: dysphagia Attestation I attest that I discussed the nature of the procedure; its benefits; risks and complications; and alternatives (and the risks and benefits of such alternatives ), prior to the procedure, with the patient (or the patient's legal passenger relations representative). I attest that, if there was a reasonable possibility of needing a blood transfusion, the patient (or the patient's legal passenger relations representative) was given the [facility] standardized written summary, pursuant to the Kt Baron Blood Safety Act ([place] Health and Safety Code # 1645, as amended). I attest that I re-evaluated the patient just prior to the surgery and that there has been no change in the patient's H&P, except as documented below: Lawrence Humphreys MD Nov 26, 2019 10:43
--- NOTE | 2019-11-26 11:57 | Nephrology Progress Note ---
Assessment/Plan Problem List: (1) Respiratory distress (2) Diabetes mellitus (3) Hypertension (4) Renal failure (ARF), acute on chronic Assessment Patient's current problem is dyspnea Most likely volume overload versus pneumonitis Other conditions: Renal failure (ARF), acute on chronic h/o Metabolic acidosis h/oElectrolyte imbalance Hyponatremia and hyperkalemia h/oAnemia h/o CHF (congestive heart failure) Plan November 25: Patient was dialyzed yesterday. Today is due for insertion of a GT tube. Patient pulled out his previous GT tube. Labs reviewed. Electrolytes abnormalities adjusted. Continue to monitor renal parameters. Patient is off BiPAP and on nasal cannula now. I believe that upon discharge the patient requires 2-3 times a week dialysis and ultrafiltration however upon discharge the patient needs to be followed by a concrete mixer operator helper in the facility that he goes to to assess on a regular basis the need and frequency for dialysis. November 24 : Late note entry due to system problem at the [facility] today. Patient due for dialysis and ultrafiltration today. Labs reviewed. Chest x-ray results not available on EMR. Last dialysis November 21. Continue pulmonary toilet. Patient remains on BiPAP. Will check labs tomorrow. Subjective ROS Limited/Unobtainable: No Constitutional: Reports: malaise, weakness Objective Objective Last 24 Hour Vital Signs Date Time Temp Pulse Resp B/P (MAP) Pulse Ox O2 Delivery O2 Flow Rate FiO2 11/26/19 09:00 Nasal Cannula 2.0 11/26/19 08:00 97.7 69 20 157/49 (85) 99 11/26/19 08:00 69 11/26/19 07:56 99 Nasal Cannula 2.0 28 11/26/19 04:47 67 17 100 30 11/26/19 04:00 98.7 60 18 155/65 (95) 99 11/26/19 04:00 60 11/26/19 04:00 Bi-pap 11/26/19 04:00 30 11/26/19 03:00 62 15 100 30 11/26/19 00:43 58 18 100 30 11/26/19 00:00 60 11/26/19 00:00 30 11/26/19 00:00 Bi-pap 11/26/19 00:00 98.2 60 20 147/59 (88) 99 9/3/20 22:10 30 11/25/19 22:09 67 17 100 30 11/25/19 21:00 60 130/53 11/25/19 20:00 97.9 60 20 130/53 (78) 99 11/25/19 20:00 Nasal Cannula 3.0 11/25/19 20:00 3.0 11/25/19 19:36 60 11/25/19 16:00 2.0 11/25/19 16:00 61 11/25/19 16:00 Bi-pap 11/25/19 16:00 97.8 64 18 147/68 (94) 100 11/25/19 12:00 2.0 11/25/19 12:00 97.7 65 18 149/65 (93) 100 11/25/19 12:00 Bi-pap 11/25/19 11:58 63 Intake and Output 11/25/19 11/26/19 19:00 07:00 Output Total 2200 ml Balance -2200 ml Output Urine Total 200 ml Hemodialysis UF 2000 ml # Bowel Movements 3 Laboratory Tests 11/26/19 03:25: White Blood Count 6.1, Red Blood Count 2.84L, Hemoglobin 8.0L, Hematocrit 26.8L , Mean Corpuscular Volume 95, Mean Corpuscular Hemoglobin 28.2, Mean Corpuscular Hemoglobin Concent 29.8L, Red Cell Distribution Width 15.0H, Platelet Count 300, Mean Platelet Volume 6.4L, Neutrophils (%) (Auto) 77.5H, Lymphocytes (%) (Auto) 12.8L, Monocytes (%) (Auto) 8.2, Eosinophils (%) (Auto) 0.8, Basophils (%) (Auto) 0.7, Sodium Level 139, Potassium Level 3.9, Chloride Level 101, Carbon Dioxide Level 31, Anion Gap 7, Blood Urea Nitrogen 33H, Creatinine 2.4H, Estimat Glomerular Filtration Rate 26.1, Glucose Level 91, Calcium Level 8.3L, Phosphorus Level 3.0, Magnesium Level 2.3, Total Bilirubin 0.6, Aspartate Amino Transf (AST/SGOT) 18, Alanine Aminotransferase (ALT/SGPT) 10L, Alkaline Phosphatase 132H, C-Reactive Protein, Quantitative 5.7H, Total Protein 6.1L, Albumin 2.2L, Globulin 3.9, Albumin/Globulin Ratio 0.6L Height (Feet): 5 Height (Inches): 5.00 Weight (Pounds): 169 General Appearance: no apparent distress, lethargic Cardiovascular: normal rate Respiratory/Chest: decreased breath sounds Abdomen: soft, distended Naveed Vanegas MD Nov 26, 2019 11:57
--- NOTE | 2019-11-26 12:43 | Anethesia Preoperative Eval ---
Anesthesia Pre-op PMH/ROS General Date of Evaluation: Nov 26, 2019 Anesthesiologist: Onel ASA Score: ASA 3 Mallampati Score Class I : Soft palate, uvula, fauces, pillars visible Class II: Soft palate, uvula, fauces visible Class III: Soft palate, base of uvula visible Class IV: Only hard plate visible Mallampati Classification: Class II Surgeon: Juliann Diagnosis: Dysphagia Surgical Procedure: EGD anmd PEG Anesthesia History: none Family History: no anesthesia problems Allergies: Coded Allergies: PENICILLINS (Verified Allergy, Unknown, 10/25/19) tolerated Ceftriaxone Uncoded Allergies: PENICILLIN (Allergy, Unknown, 11/23/19) Medications: see eMAR Patient NPO?: Yes NPO Date: Nov 26, 2019 NPO Time: 00:00 Past Medical History Cardiovascular: Reports: HTN, other - CHF, HLD, PVD; Denies: CAD, [place], valve dz, arrhythmia Pulmonary: Denies: asthma, COPD, DAYANA, other Gastrointestinal/Genitourinary: Reports: GERD, CRI; Denies: ESRD, other Neurologic/Psychiatric: Reports: depression/anxiety, other - encephalopathy; Denies: dementia, CVA, TIA Endocrine: Reports: DM; Denies: hypothyroidism, steroids, other HEENT: Denies: cataract (L), cataract (R), glaucoma, [place] (L), [place] (R), other Hematology/Immune: Reports: anemia; Denies: DVT, bleeding disorder, other Musculoskeletal/Integumentary: Denies: OA, RA, DJD, DDD, edema, other PSxH Narrative: PEG, bilateral metatarsal amputations Anesthesia Pre-op Phys. Exam Physician Exam Last Vital Signs Date Time Temp Pulse Resp B/P (MAP) Pulse Ox O2 Delivery O2 Flow Rate FiO2 11/26/19 09:00 Nasal Cannula 2.0 11/26/19 08:00 97.7 69 20 157/49 (85) 99 11/26/19 07:56 28 Constitutional: NAD Cardiovascular: RRR Respiratory: CTA Airway Exam Mallampati Score: Class III MO: limited ROM: limited Anesthesia Pre-op A/P Labs Hematology Test 11/26/19 03:25 White Blood Count 6.1 K/UL (4.8-10.8) Red Blood Count 2.84 M/UL (4.70-6.10) L Hemoglobin 8.0 G/DL (14.2-18.0) L Hematocrit 26.8 % (42.0-52.0) L Mean Corpuscular Volume 95 FL (80-99) Mean Corpuscular Hemoglobin 28.2 PG (27.0-31.0) Mean Corpuscular Hemoglobin Concent 29.8 G/DL (32.0-36.0) L Red Cell Distribution Width 15.0 % (11.6-14.8) H Platelet Count 300 K/UL (150-450) Mean Platelet Volume 6.4 FL (6.5-10.1) L Neutrophils (%) (Auto) 77.5 % (45.0-75.0) H Lymphocytes (%) (Auto) 12.8 % (20.0-45.0) L Monocytes (%) (Auto) 8.2 % (1.0-10.0) Eosinophils (%) (Auto) 0.8 % (0.0-3.0) Basophils (%) (Auto) 0.7 % (0.0-2.0) Chemistry Test 11/26/19 03:25 Sodium Level 139 MMOL/L (136-145) Potassium Level 3.9 MMOL/L (3.5-5.1) Chloride Level 101 MMOL/L (98-107) Carbon Dioxide Level 31 MMOL/L (21-32) Anion Gap 7 mmol/L (5-15) Blood Urea Nitrogen 33 mg/dL (7-18) H Creatinine 2.4 MG/DL (0.55-1.30) H Estimat Glomerular Filtration Rate 26.1 mL/min (>60) Glucose Level 91 MG/DL (74-106) Calcium Level 8.3 MG/DL (8.5-10.1) L Phosphorus Level 3.0 MG/DL (2.5-4.9) Magnesium Level 2.3 MG/DL (1.8-2.4) Total Bilirubin 0.6 MG/DL (0.2-1.0) Aspartate Amino Transf (AST/SGOT) 18 U/L (15-37) Alanine Aminotransferase (ALT/SGPT) 10 U/L (12-78) L Alkaline Phosphatase 132 U/L (46-116) H C-Reactive Protein, Quantitative 5.7 mg/dL (0.00-0.90) H Total Protein 6.1 G/DL (6.4-8.2) L Albumin 2.2 G/DL (3.4-5.0) L Globulin 3.9 g/dL Albumin/Globulin Ratio 0.6 (1.0-2.7) L Studies Pre-op Studies: EKG - sr Risk Assessment & Plan Assessment: ASA III Plan: MAC Status Change Before Surgery: No Pre-Antibiotics Drug: Clindamycin Given Within 1 Hr of Incision: Yes Gunjan Sykes MD Nov 26, 2019 12:43
--- NOTE | 2019-11-26 12:48 | Pre-Procedure Note/Attestation ---
Pre-Procedure Note/Attestation Complete Prior to Procedure Planned Procedure: not applicable Procedure Narrative: egd/peg Indications for Procedure Pre-Operative Diagnosis: dysphagia Attestation I attest that I discussed the nature of the procedure; its benefits; risks and complications; and alternatives (and the risks and benefits of such alternatives ), prior to the procedure, with the patient (or the patient's legal manufacturers representative). I attest that, if there was a reasonable possibility of needing a blood transfusion, the patient (or the patient's legal manufacturers representative) was given the [facility] standardized written summary, pursuant to the Kt Baron Blood Safety Act ([place] Health and Safety Code # 1645, as amended). I attest that I re-evaluated the patient just prior to the surgery and that there has been no change in the patient's H&P, except as documented below: Lawrence Humphreys MD Nov 26, 2019 12:48
[2019-11-26] MEDS ORDERED: Lidocaine 1% MPF 10mg/ml 5ml ONE (13:00)
[2019-11-26] MEDS ORDERED: NS 500ML IVPB ONE (13:05)
[2019-11-26] MEDS ORDERED: Clindamycin 600mg 50 ML IV ONE (13:05)
[2019-11-26] MEDS ORDERED: LR 1000ml 1,000 ML IVLG SCH (13:07)
[2019-11-26] MEDS ORDERED: DiphenhydrAMINE 50mg/ml Inj IVP PRN (13:15)
--- NOTE | 2019-11-26 13:36 | Immediate Post-Op Evaluation ---
Immediate Post-Op Evalulation Immediate Post-Op Evalulation Procedure: EGD and PEG Date of Evaluation: Nov 26, 2019 Time of Evaluation: 13:36 IV Fluids: 150 Blood Products: 0 Estimated Blood Loss: 0 Urinary Output: 0 Blood Pressure Systolic: 147 Blood Pressure Diastolic: 55 Pulse Rate: 61 Respiratory Rate: 16 O2 Sat by Pulse Oximetry: 100 Temperature (Fahrenheit): 97.2 Pain Score (1-10): 0 Nausea: No Vomiting: No Complications 0 Patient Status: awake, reacts, patent, none Hydration Status: adequate Drug: N/A Gunjan Sykes MD Nov 26, 2019 13:36
--- NOTE | 2019-11-26 13:37 | 48 Hour Post Anesthesia Eval ---
Post Anesthesia Evaluation Procedure: EGD and PEG Date of Evaluation: Nov 26, 2019 Airway: patent Nausea: No Vomiting: No Pain Intensity: 0 Hydration Status: adequate Cardiopulmonary Status: at baseline Mental Status/LOC: patient returned to baseline Post-Anesthesia Complications: 0 Follow-up care needed: N/A - further care as per primary team Gunjan Sykes MD Nov 26, 2019 13:37
--- NOTE | 2019-11-26 14:10 | General Progress Note ---
Progress Note Progress Note Bioethics Consult Request by AMEYA Hanna. This 79 year old with dementia refuses to cooperate with bi -pap at the SNF and because of that is transferred on multiple occasions to the hospital where he also refuses to tolerate bi-pap and is now stable on nasal canula oxygen. We are attempting to contact his and daughter to discuss. He has diminshed capacity and does not understand the consequences of refusing bi-pap, yet it seems inhumane to force him to endure it. He should be discharged to the SNF on nasal canula with instructions not to be sent back to the acute care hospital for refusal to accept bi-pap. We are happy to have a family conference to explain the reasoning here if the family is willing to speak with us. Ace Azul M.D., [employer] Ace Azul MD Nov 26, 2019 14:10
--- NOTE | 2019-11-26 14:15 | Hematology/Onc Progress Note ---
Assessment/Plan Assessment/Plan ASSESSMENT AND RECOMMENDATIONS: # Anemia of chronic disease due to underlying chronic medical issues, multifactorial --> Anemia w/u has been reviewed. --> no evidence of hemolysis is noted, peripheral smear has been reviewed --> hgb goal is >7, transfuse as needed --> currently remains stable, occult blood negative --> hgb 8.4->8.6->8.3->8->8.2->9.2-->9.2->8.9-->8.1-->8.7>9.4-->8.7-->8->7.8-> 7.5-->7.4-->7.5-->8.1-->8 --> some blood loss due to hematuria after inflated reyes pulled 8/6 am --> EPOGEN Started # Thrombocytopenia is likely due to infection --> plt trend 180-->149-->274 --> on abx as needed --> hep and hiv neg #. Leukocytosis with underlying infectionv stress reaction HISTORY --> per id and better --> for infection, ABX ctx/vanc-->off --> wbc 10-->5.9 # Acute kidney injury r/o potential reversible component --> reviewed meds, those that are renally cleared removed --> as per renal recs, appreciated --> cr 3.5-->4.2-->3.4 --> Hd started and dw renal # Hypertension, essential --> sbp goal is <140, consider anti-htn as needed --> currently started on hyralazine 25mg po q6h prn sbp >140 # CHF - hx of CHf --> diuresis with lasix as needed --> cardiology recs appreciated prior adm #. Bilateral lower extremity amputee, metatarsal several years ago #. Dysphagia s/p peg --> peg pulled out and now with gtube 11/25 #. Hyperkalemia -- kayxelate as needed #. Agitation requires restraints #. Dvt ppx scds --> xarelto=> off The time the note was entered does not necessarily correspond to the time the patient was seen. GREATLY APPRECIATE CONSULTATION. Subjective Constitutional: Denies: no symptoms, chills, fever, malaise, weakness, other HEENT: Denies: no symptoms, eye pain, blurred vision, tearing, double vision, ear pain, ear discharge, nose pain, nose congestion, throat pain, throat swelling, mouth pain, mouth swelling, other Respiratory: Denies: no symptoms, cough, shortness of breath, SOB with excertion, SOB at rest, sputum, wheezing, other Genitourinary: Denies: no symptoms, burning, discharge, frequency, flank pain, hematuria, incontinence, pain, urgency, other Neurologic/Psychiatric: Denies: no symptoms, anxiety, depressed, emotional problems, headache, numbness, paresthesia, pre-existing deficit, seizure, tingling, tremors, weakness, other Endocrine: Denies: no symptoms, excessive sweating, flushing, intolerance to cold, intolerance to heat, increased hunger, increased thirst, increased urine, unexplained weight gain, unexplained weight loss, other Hematologic/Lymphatic: Denies: no symptoms, anemia, easy bleeding, easy bruising, adenopathy, other Allergies: Coded Allergies: PENICILLINS (Verified Allergy, Unknown, 10/25/19) tolerated Ceftriaxone Uncoded Allergies: PENICILLIN (Allergy, Unknown, 11/23/19) Subjective 11/23 came back from [facility] due to lack of bipap capability, hgb 7.5 11/24 labs reviewed, remains sob, with a hgb 8.1, no bleeding, [place], hold off prbc 11/25 labs are noted, for egd and peg in the am, jag [place]as, on vt Objective Objective Current Medications Medications (Trade) Dose Ordered Sig/Cammy Route PRN Reason Start Time Stop Time Status Last Admin Dose Admin Acetaminophen (Tylenol) 650 mg Q4H PRN ORAL Mild Pain (Pain Scale 1-3) 11/26/19 13:15 11/26/19 18:00 Allopurinol (allopurinoL) 300 mg DAILY ORAL 11/26/19 10:30 12/24/19 10:29 Amlodipine Besylate (Norvasc) 5 mg Q12HR ORAL 11/26/19 10:30 12/24/19 10:29 Apixaban (Eliquis) 2.5 mg BID ORAL 11/26/19 10:30 02/22/20 10:29 Atenolol (Tenormin) 100 mg DAILY ORAL 11/26/19 10:30 12/24/19 10:29 Atorvastatin Calcium (Lipitor) 10 mg BEDTIME ORAL 11/26/19 21:00 02/22/20 20:59 Chlorhexidine Gluconate (Yi-Hex 2%) 1 applic DAILY@1999 TOPIC 11/26/19 20:00 02/24/20 19:59 Diphenhydramine HCl (Benadryl) 25 mg Q15M PRN IVP Itching 11/26/19 13:15 11/26/19 18:00 Docusate Sodium (Colace) 100 mg DAILY ORAL 11/26/19 10:30 12/24/19 10:29 Hydralazine HCl (Apresoline) 5 mg Q30M PRN IV SBP>160 OR___/DBP>90 OR___ 11/26/19 13:15 11/26/19 18:00 Lactated Ringer's 1,000 ml @ 10 mls/hr Q24H IVLG 11/26/19 13:07 11/26/19 15:06 Lorazepam (Ativan 2mg/ml 1ml) 0.5 mg Q4H PRN IV For Anxiety 11/26/19 10:30 12/01/19 10:29 Pantoprazole (Protonix) 40 mg DAILY ORAL 11/26/19 10:30 12/24/19 10:29 Sennosides (Senokot) 8.6 mg DAILY PRN ORAL Constipation 11/26/19 10:30 12/26/19 10:29 Last 24 Hour Vital Signs Date Time Temp Pulse Resp B/P (MAP) Pulse Ox O2 Delivery O2 Flow Rate FiO2 11/26/19 13:42 58 20 141/56 100 Nasal Cannula 3 11/26/19 13:37 59 20 143/56 100 Nasal Cannula 3 11/26/19 13:36 61 16 100 11/26/19 13:32 97.2 61 21 147/55 100 Nasal Cannula 3 11/26/19 12:00 65 11/26/19 12:00 30 11/26/19 12:00 96.6 63 18 155/43 (80) 98 11/26/19 09:00 Nasal Cannula 2.0 11/26/19 08:00 97.7 69 20 157/49 (85) 99 11/26/19 08:00 69 11/26/19 08:00 30 11/26/19 07:56 99 Nasal Cannula 2.0 28 11/26/19 04:47 67 17 100 30 11/26/19 04:00 98.7 60 18 155/65 (95) 99 11/26/19 04:00 60 11/26/19 04:00 Bi-pap 11/26/19 04:00 30 11/26/19 03:00 62 15 100 30 11/26/19 00:43 58 18 100 30 11/26/19 00:00 60 11/26/19 00:00 30 11/26/19 00:00 Bi-pap 11/26/19 00:00 98.2 60 20 147/59 (88) 99 11/25/19 22:10 30 11/25/19 22:09 67 17 100 30 11/25/19 21:00 60 130/53 11/25/19 20:00 97.9 60 20 130/53 (78) 99 11/25/19 20:00 Nasal Cannula 3.0 11/25/19 20:00 3.0 11/25/19 19:36 60 11/25/19 16:00 2.0 11/25/19 16:00 61 11/25/19 16:00 Bi-pap 11/25/19 16:00 97.8 64 18 147/68 (94) 100 11/25/19 12:00 2.0 11/25/19 12:00 97.7 65 18 149/65 (93) 100 11/25/19 12:00 Bi-pap 11/25/19 11:58 63 11/25/19 09:21 58 19 99 30 11/25/19 08:00 30 11/25/19 08:00 59 11/25/19 08:00 96.8 65 18 142/56 (84) 100 11/25/19 08:00 Bi-pap 11/25/19 07:29 57 16 100 30 11/25/19 05:10 59 18 100 30 11/25/19 04:00 58 11/25/19 04:00 97.5 60 18 139/55 (83) 100 11/25/19 04:00 Bi-pap 11/25/19 04:00 30 11/25/19 03:12 62 18 100 30 11/25/19 00:30 59 18 100 30 11/25/19 00:00 Bi-pap 11/25/19 00:00 56 11/25/19 00:00 30 11/25/19 00:00 97.0 55 20 139/55 (83) 100 11/24/19 23:00 100 11/24/19 21:00 100 11/24/19 21:00 55 129/46 11/24/19 20:00 3.0 11/24/19 20:00 56 11/24/19 20:00 97.5 55 20 129/49 (75) 100 11/24/19 20:00 Bi-pap 11/24/19 19:24 100 11/24/19 16:31 99 11/24/19 16:00 Bi-pap 11/24/19 16:00 58 11/24/19 16:00 97.9 60 18 135/58 (83) 100 11/24/19 16:00 3.0 11/24/19 15:06 99 Intake and Output 11/25/19 11/26/19 19:00 07:00 Output Total 2200 ml Balance -2200 ml Output Urine Total 200 ml Hemodialysis UF 2000 ml # Bowel Movements 3 Labs Test 11/24/19 01:29 11/24/19 02:08 11/24/19 05:53 11/24/19 09:05 Arterial Blood pH 7.354 (7.350-7.450) Arterial Blood Partial Pressure CO2 59.1 mmHg (35.0-45.0) Arterial Blood Partial Pressure O2 162.4 mmHg (75.0-100.0) Arterial Blood HCO3 32.2 mmol/L (22.0-26.0) Arterial Blood Oxygen Saturation 99.2 % (95-100) Arterial Blood Base Excess 5.7 (-2-2) Kristian Test N/a POC Whole Blood Glucose 140 MG/DL (74-106) White Blood Count 7.1 K/UL (4.8-10.8) Red Blood Count 2.72 M/UL (4.70-6.10) Hemoglobin 7.7 G/DL (14.2-18.0) Hematocrit 25.8 % (42.0-52.0) Mean Corpuscular Volume 95 FL (80-99) Mean Corpuscular Hemoglobin 28.5 PG (27.0-31.0) Mean Corpuscular Hemoglobin Concent 30.0 G/DL (32.0-36.0) Red Cell Distribution Width 15.1 % (11.6-14.8) Platelet Count 284 K/UL (150-450) Mean Platelet Volume 7.3 FL (6.5-10.1) Neutrophils (%) (Auto) % (45.0-75.0) Lymphocytes (%) (Auto) % (20.0-45.0) Monocytes (%) (Auto) % (1.0-10.0) Eosinophils (%) (Auto) % (0.0-3.0) Basophils (%) (Auto) % (0.0-2.0) Differential Total Cells Counted 100 Neutrophils % (Manual) 81 % (45-75) Lymphocytes % (Manual) 12 % (20-45) Monocytes % (Manual) 6 % (1-10) Eosinophils % (Manual) 1 % (0-3) Basophils % (Manual) 0 % (0-2) Band Neutrophils 0 % (0-8) Platelet Estimate Adequate Platelet Morphology Normal Hypochromasia 3+ Anisocytosis 1+ Sodium Level 134 MMOL/L (136-145) Potassium Level 4.2 MMOL/L (3.5-5.1) Chloride Level 97 MMOL/L (98-107) Carbon Dioxide Level 32 MMOL/L (21-32) Anion Gap 5 mmol/L (5-15) Blood Urea Nitrogen 62 mg/dL (7-18) Creatinine 3.9 MG/DL (0.55-1.30) Estimat Glomerular Filtration Rate 14.9 mL/min (>60) Glucose Level 164 MG/DL (74-106) Calcium Level 8.7 MG/DL (8.5-10.1) Phosphorus Level 3.2 MG/DL (2.5-4.9) Ferritin 81 NG/ML (8-388) Total Bilirubin 0.5 MG/DL (0.2-1.0) Aspartate Amino Transf (AST/SGOT) 20 U/L (15-37) Alanine Aminotransferase (ALT/SGPT) 13 U/L (12-78) Alkaline Phosphatase 159 U/L (46-116) Troponin I 0.005 ng/mL (0.000-0.056) C-Reactive Protein, Quantitative 7.1 mg/dL (0.00-0.90) Pro-B-Type Natriuretic Peptide 19513 pg/mL (0-125) Total Protein 6.3 G/DL (6.4-8.2) Albumin 2.3 G/DL (3.4-5.0) Globulin 4.0 g/dL Albumin/Globulin Ratio 0.6 (1.0-2.7) Hepatitis B Surface Antigen Negative (NEGATIVE) Test 11/24/19 18:35 11/25/19 02:50 11/26/19 03:25 POC Whole Blood Glucose 155 MG/DL (74-106) White Blood Count 7.2 K/UL (4.8-10.8) 6.1 K/UL (4.8-10.8) Red Blood Count 2.88 M/UL (4.70-6.10) 2.84 M/UL (4.70-6.10) Hemoglobin 8.1 G/DL (14.2-18.0) 8.0 G/DL (14.2-18.0) Hematocrit 27.3 % (42.0-52.0) 26.8 % (42.0-52.0) Mean Corpuscular Volume 95 FL (80-99) 95 FL (80-99) Mean Corpuscular Hemoglobin 28.3 PG (27.0-31.0) 28.2 PG (27.0-31.0) Mean Corpuscular Hemoglobin Concent 29.9 G/DL (32.0-36.0) 29.8 G/DL (32.0-36.0) Red Cell Distribution Width 15.0 % (11.6-14.8) 15.0 % (11.6-14.8) Platelet Count 300 K/UL (150-450) 300 K/UL (150-450) Mean Platelet Volume 7.1 FL (6.5-10.1) 6.4 FL (6.5-10.1) Neutrophils (%) (Auto) 77.1 % (45.0-75.0) 77.5 % (45.0-75.0) Lymphocytes (%) (Auto) 13.4 % (20.0-45.0) 12.8 % (20.0-45.0) Monocytes (%) (Auto) 7.6 % (1.0-10.0) 8.2 % (1.0-10.0) Eosinophils (%) (Auto) 0.8 % (0.0-3.0) 0.8 % (0.0-3.0) Basophils (%) (Auto) 1.2 % (0.0-2.0) 0.7 % (0.0-2.0) Sodium Level 134 MMOL/L (136-145) 139 MMOL/L (136-145) Potassium Level 4.4 MMOL/L (3.5-5.1) 3.9 MMOL/L (3.5-5.1) Chloride Level 96 MMOL/L (98-107) 101 MMOL/L (98-107) Carbon Dioxide Level 31 MMOL/L (21-32) 31 MMOL/L (21-32) Anion Gap 7 mmol/L (5-15) 7 mmol/L (5-15) Blood Urea Nitrogen 72 mg/dL (7-18) 33 mg/dL (7-18) Creatinine 4.2 MG/DL (0.55-1.30) 2.4 MG/DL (0.55-1.30) Estimat Glomerular Filtration Rate 13.7 mL/min (>60) 26.1 mL/min (>60) Glucose Level 140 MG/DL (74-106) 91 MG/DL (74-106) Hemoglobin A1c 6.9 % (4.3-6.0) Calcium Level 8.8 MG/DL (8.5-10.1) 8.3 MG/DL (8.5-10.1) Phosphorus Level 4.6 MG/DL (2.5-4.9) 3.0 MG/DL (2.5-4.9) Magnesium Level 2.9 MG/DL (1.8-2.4) 2.3 MG/DL (1.8-2.4) Iron Level 41 ug/dL (50-175) Total Iron Binding Capacity 214 ug/dL (250-450) Percent Iron Saturation 19 % (15-50) Unsaturated Iron Binding 173 ug/dL (112-346) Ferritin 89 NG/ML (8-388) Total Bilirubin 0.5 MG/DL (0.2-1.0) 0.6 MG/DL (0.2-1.0) Gamma Glutamyl Transpeptidase 47 U/L (5-85) Aspartate Amino Transf (AST/SGOT) 16 U/L (15-37) 18 U/L (15-37) Alanine Aminotransferase (ALT/SGPT) 11 U/L (12-78) 10 U/L (12-78) Alkaline Phosphatase 147 U/L (46-116) 132 U/L (46-116) Lactate Dehydrogenase 166 U/L (81-234) Total Creatine Kinase 27 U/L (26-308) Troponin I 0.000 ng/mL (0.000-0.056) Pro-B-Type Natriuretic Peptide 61322 pg/mL (0-125) Total Protein 6.3 G/DL (6.4-8.2) 6.1 G/DL (6.4-8.2) Albumin 2.3 G/DL (3.4-5.0) 2.2 G/DL (3.4-5.0) Globulin 4.0 g/dL 3.9 g/dL Albumin/Globulin Ratio 0.6 (1.0-2.7) 0.6 (1.0-2.7) Triglycerides Level 117 MG/DL (30-150) Cholesterol Level 115 MG/DL (< 200) LDL Cholesterol 61 mg/dL (<100) HDL Cholesterol 38 MG/DL (40-60) Cholesterol/HDL Ratio 3.0 (3.3-4.4) Vitamin B12 Level 1463 PG/ML (193-986) Folate 18.8 NG/ML (8.6-58.9) Thyroid Stimulating Hormone (TSH) 4.866 uiU/mL (0.358-3.740) C-Reactive Protein, Quantitative 5.7 mg/dL (0.00-0.90) Height (Feet): 5 Height (Inches): 5.00 Weight (Pounds): 169 Objective GENERAL: Not in acute distress. HEENT: ncat PULMONARY: Decreased breath sounds. ++ bipap v nc+ CHEST: ++permacath right chest CARDIOVASCULAR: Regular rate. No S3 or S4. ABDOMEN: Soft, nontender, nondistended.++peg EXTREMITIES: 1+ edema. No cyanosis, swelling, or edema. 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 Melvin Rizzo MD Nov 26, 2019 14:15
--- NOTE | 2019-11-26 18:51 | General Progress Note ---
Progress Note Progress Note Patient is awake alert afebrile hemodynamically stable. On physical examination his blood pressure is 128/72 his pulse is 90 respiration is 16 temperature 97.8 eyes were normal ENT mucous members of the mucous membrane is moist and intact neck was supple with no JVD without lymph node tracheostomy site is clean lungs are clear without rhonchi rales or wheezing heart normal sounds regular. Abdomen was soft nontender with normal bowel sounds Extremities are warm without cyanosis clubbing or edema patient has refused today to use BiPAP machine few days ago he pulled G-tube out and has to be reinserted attempt was done to transfer the patient back to [facility] however the facility will not accept patient on BiPAP and now patient is planning to [place] discharge was planned to be done today patient was unable to be discharged today's visit is not clear the time of this dictation repeat laboratory tests will be done in a.m. Ayush Joe MD, MD Nov 26, 2019 18:51
[2019-11-26] MEDS ORDERED: Dyna-Hex 2% Top Sol 2oz TOPIC SCH (20:00)
[2019-11-26] MEDS: Dyna-Hex 2% Top Sol 2oz TOPIC SCH (20:31)
--- NOTE | 2019-11-26 21:45 | Procedure Note ---
DATE OF PROCEDURE: 11/26/2019 SURGEON: Lawrence Humphreys MD PROCEDURE: Upper endoscopy with PEG placement. ANESTHESIA: Per Dr. Sykes. INSTRUMENT: Olympus adult flexible upper endoscope. INDICATION: Dysphagia. The procedure, risks, benefits, and possible consequences, including hemorrhage, aspiration, perforation and infection, and alternative treatments, were explained to the patient/legal guardian by Dr. Lawrence Humphreys and the patient/legal guardian understood and accepted these risks. PROCEDURE IN DETAIL: After informed consent was obtained and the patient was adequately sedated, Olympus upper endoscope was advanced from the mouth into second portion of the duodenum and retroflexion was performed in the stomach. Then under endoscopic guidance under sterile condition, a 20-Yemeni pull type of G-tube was successfully placed in the epigastric area. The distance from the tip of the tube to the skin was about 2.5 cm in size. The patient tolerated the procedure very well without any complication. SUMMARY OF FINDINGS: Status post successful PEG placement. RECOMMENDATIONS: Abdominal binder. Elevate the head of the bed at all times. G-tube flush. G-tube care. Start tube feeding later today. I want to thank, Dr. Chang, for this kind referral. Lawrence Humphreys M.D. DR: Fili JOB#: [id number] CC: Ayush Chang M.D.
[2019-11-27] VITALS: BP 101/57
[2019-11-27 04:00] VITALS: BP 130/83
--- NOTE | 2019-11-27 07:49 | General Progress Note ---
Assessment/Plan Problem List: (1) Hypertension ICD Codes: I10 - Essential (primary) hypertension SNOMED: 83649198 (2) Diabetes mellitus ICD Codes: E11.9 - Type 2 diabetes mellitus without complications SNOMED: 75408565 (3) Cholelithiasis ICD Codes: K80.20 - Calculus of gallbladder without cholecystitis without obstruction SNOMED: 673084837 Assessment/Plan: dysphagia s/p GT placement GTF monitor for residuals Subjective ROS Limited/Unobtainable: No Allergies: Coded Allergies: PENICILLINS (Verified Allergy, Unknown, 10/25/19) tolerated Ceftriaxone Uncoded Allergies: PENICILLIN (Allergy, Unknown, 11/23/19) Objective Last 24 Hour Vital Signs Date Time Temp Pulse Resp B/P (MAP) Pulse Ox O2 Delivery O2 Flow Rate FiO2 11/27/19 04:00 97.9 70 18 130/83 (99) 96 11/27/19 04:00 3.0 11/27/19 04:00 68 11/27/19 00:00 99.8 71 18 101/57 (72) 96 11/27/19 00:00 3.0 11/27/19 00:00 64 11/26/19 21:00 Nasal Cannula 3.0 11/26/19 20:37 70 163/55 11/26/19 20:00 98.8 69 18 163/55 (91) 94 11/26/19 20:00 68 11/26/19 18:45 99 Nasal Cannula 2.0 28 11/26/19 16:00 65 11/26/19 16:00 30 11/26/19 16:00 97.7 66 20 145/52 (83) 94 11/26/19 13:52 97.9 61 22 140/50 100 Nasal Cannula 3 11/26/19 13:42 58 20 141/56 100 Nasal Cannula 3 11/26/19 13:37 59 20 143/56 100 Nasal Cannula 3 11/26/19 13:36 61 16 100 11/26/19 13:32 97.2 61 21 147/55 100 Nasal Cannula 3 11/26/19 12:00 65 11/26/19 12:00 30 11/26/19 12:00 96.6 63 18 155/43 (80) 98 11/26/19 09:00 Nasal Cannula 2.0 11/26/19 08:00 97.7 69 20 157/49 (85) 99 11/26/19 08:00 69 11/26/19 08:00 30 11/26/19 07:56 99 Nasal Cannula 2.0 28 Intake and Output 11/26/19 11/27/19 19:00 07:00 Intake Total 150 ml Balance 150 ml Intake IV Total 150 ml # Voids 2 2 # Bowel Movements 1 Height (Feet): 5 Height (Inches): 5.00 Weight (Pounds): 169 General Appearance: no apparent distress EENT: normal ENT inspection Neck: supple Cardiovascular: normal rate Respiratory/Chest: decreased breath sounds Abdomen: normal bowel sounds, non tender, soft Extremities: non-tender Lawrence Humphreys MD Nov 27, 2019 07:49
[2019-11-27 08:00] VITALS: BP 105/78
--- NOTE | 2019-11-27 08:22 | Pulmonology Progress Note ---
Reema Hanna DATA ANALYST ETL DEVELOPER 11/27/19 0822: Subjective ROS Limited/Unobtainable: No Allergies: Coded Allergies: PENICILLINS (Verified Allergy, Unknown, 10/25/19) tolerated Ceftriaxone Uncoded Allergies: PENICILLIN (Allergy, Unknown, 11/23/19) Subjective on tele off BiPAP now on O2 via NC, pulse ox stable no signs of resp distress declined BiPAP at night bioethics eval was done 11/25 Objective Last 24 Hour Vital Signs Date Time Temp Pulse Resp B/P (MAP) Pulse Ox O2 Delivery O2 Flow Rate FiO2 11/27/19 04:00 97.9 70 18 130/83 (99) 96 11/27/19 04:00 3.0 11/27/19 04:00 68 11/27/19 00:00 99.8 71 18 101/57 (72) 96 11/27/19 00:00 3.0 11/27/19 00:00 64 11/26/19 21:00 Nasal Cannula 3.0 11/26/19 20:37 70 163/55 11/26/19 20:00 98.8 69 18 163/55 (91) 94 11/26/19 20:00 68 11/26/19 18:45 99 Nasal Cannula 2.0 28 11/26/19 16:00 65 11/26/19 16:00 30 11/26/19 16:00 97.7 66 20 145/52 (83) 94 11/26/19 13:52 97.9 61 22 140/50 100 Nasal Cannula 3 11/26/19 13:42 58 20 141/56 100 Nasal Cannula 3 11/26/19 13:37 59 20 143/56 100 Nasal Cannula 3 11/26/19 13:36 61 16 100 11/26/19 13:32 97.2 61 21 147/55 100 Nasal Cannula 3 11/26/19 12:00 65 11/26/19 12:00 30 11/26/19 12:00 96.6 63 18 155/43 (80) 98 11/26/19 09:00 Nasal Cannula 2.0 Intake and Output 11/26/19 11/27/19 19:00 07:00 Intake Total 150 ml Balance 150 ml Intake IV Total 150 ml # Voids 2 2 # Bowel Movements 1 Objective General Appearance: alert , confused, Hebrew speaking Lines, tubes and drains: peripheral HEENT: normocephalic, atraumatic, anicteric Neck: supple Respiratory/Chest: lungs clear, no respiratory distress Cardiovascular/Chest: normal rate Abdomen: non tender, soft, feeding tube - G tube Extremities: BL foot TMA Neurologic: abnormal gait, alert, confused, responsive Musculoskeletal: atrophy - BLE Current Medications Medications (Trade) Dose Ordered Sig/Cammy Route PRN Reason Start Time Stop Time Status Last Admin Dose Admin Allopurinol (allopurinoL) 300 mg DAILY ORAL 11/26/19 10:30 12/24/19 10:29 Amlodipine Besylate (Norvasc) 5 mg Q12HR ORAL 11/26/19 10:30 12/24/19 10:29 11/26/19 20:37 Apixaban (Eliquis) 2.5 mg BID ORAL 11/26/19 10:30 02/22/20 10:29 11/26/19 17:35 Atenolol (Tenormin) 100 mg DAILY ORAL 11/26/19 10:30 12/24/19 10:29 Atorvastatin Calcium (Lipitor) 10 mg BEDTIME ORAL 11/26/19 21:00 02/22/20 20:59 11/26/19 20:26 Chlorhexidine Gluconate (Yi-Hex 2%) 1 applic DAILY@1999 TOPIC 11/26/19 20:00 02/24/20 19:59 11/26/19 20:31 Docusate Sodium (Colace) 100 mg DAILY ORAL 11/26/19 10:30 12/24/19 10:29 Lorazepam (Ativan 2mg/ml 1ml) 0.5 mg Q4H PRN IV For Anxiety 11/26/19 10:30 12/01/19 10:29 Pantoprazole (Protonix) 40 mg DAILY ORAL 11/26/19 10:30 12/24/19 10:29 Sennosides (Senokot) 8.6 mg DAILY PRN ORAL Constipation 11/26/19 10:30 12/26/19 10:29 Assessment/Plan Assessment/Plan ASSESSMENT Prior acute hypoxemic hypercapnic respiratory failure requiring BiPAP Chronic CO2 retention Possible DAYANA Aspiration risk s/p recent PNA Dysphagia , s/p PEG , pulled out, s/p replacement of PEG 11/16 Acute kidney injury on chronic kidney disease, requiring start of HD 10/30 Anemia of chronic kidney disease Diabetes mellitus HTN PVD with hx of bilateral foot MTA Refusal of care PLAN OF CARE tele BiPAP at HS and prn , refusing again currently on O2 3 L via NC titrate O2, pulm toilet patient likely has DAYANA. recommend sleep study as OP fup with CXR ABG prn rapid COVID NGT, BiPAP prn and HS ethics eval if pt can refuse BiPAP ( patient with dementia, confusion), daughter wants BiPAP and unclear how he refused if was on restraints? in our opinion BiPAP should be on standing order and available in the facility when patient will be transferred need formal polysomnogram to be done as OP bioethics eval appreciated, done 11/25 . per bioethics: pt with diminished capacity and does not understand the consequences of refusing bi-pap, yet it seems inhumane to force him to endure it recommended that he should be discharged to the SNF on nasal canula with instructions not to be sent back to the acute care hospital for refusal to accept bi-pap. we are happy to have a family conference to explain the reasoning here if the family is willing to speak with us. ask SW to schedule family conference completed Rx for PNA on prior admission Venous Duplex BLE 10/25 -> NGT on Eliquis aspir precautions, new BSSE pending TF via GT for now protein supplements HD as per nephro recs monitor volumes, renal paramerts, lytes s/p placement of permanent HD catheter R chest 11/07 s/p removal of temporary HD catheter by surgeon ECHO with pEF 55-60% rate control with BB, HR stable on chronic a/c , was on hold for PEG, Eliquis resumed BP management with CCB and BB, optimize as needed continue statin prior HgA1c -6.1 hold oral anti-glycemic monitor HH with goal to keep Hgb above 7 anemia w/up prior noted , heme on board on EPO GI prophayxlis supportive care case discussed and evaluated by supervising physician Jonathon Pabon MD 11/27/19 1318: Subjective Allergies: Coded Allergies: PENICILLINS (Verified Allergy, Unknown, 10/25/19) tolerated Ceftriaxone Uncoded Allergies: PENICILLIN (Allergy, Unknown, 11/23/19) Assessment/Plan Assessment/Plan Patient seen and examined with DATA ANALYST ETL DEVELOPER. Agree with above A&P as it reflects our joint deliberations. Reema Hanna NP Nov 27, 2019 08:22 Jonathon Pabon MD Nov 27, 2019 13:18
[2019-11-27] MEDS: Eliquis 2.5mg tablet ORAL SCH ×2 (08:56→17:32)
[2019-11-27] MEDS: Docusate 100mg cap ORAL SCH (08:58)
[2019-11-27 09:26] LABS: BASOPHILS % (AUTO) 1.2 % (0.0-2.0); EOSINOPHILS % (AUTO) 0.8 % (0.0-3.0); HEMATOCRIT 30.6 % (42.0-52.0); HEMOGLOBIN 9.1 G/DL (14.2-18.0); LYMPHOCYTES % (AUTO) 15.5 % (20.0-45.0); MEAN CORPUSCULAR VOLUME 94 FL (80-99); MONOCYTES % (AUTO) 9.3 % (1.0-10.0); NEUTROPHILS % (AUTO) 73.2 % (45.0-75.0); PLATELET COUNT 304 K/UL (150-450); RED BLOOD COUNT 3.25 M/UL (4.70-6.10); RED CELL DISTRIBUTION WIDTH 15.2 % (11.6-14.8); WHITE BLOOD COUNT 6.8 K/UL (4.8-10.8)
[2019-11-27 09:28] LABS: ALANINE AMINOTRANSFERASE 11 U/L (12-78); ALBUMIN 2.5 G/DL (3.4-5.0); ALBUMIN/GLOBULIN RATIO 0.6 (1.0-2.7); ALKALINE PHOSPHATASE 166 U/L (46-116); ANION GAP 6 mmol/L (5-15); ASPARTATE AMINO TRANSFERASE 19 U/L (15-37); BILIRUBIN,TOTAL 0.4 MG/DL (0.2-1.0); BLOOD UREA NITROGEN 53 mg/dL (7-18); CALCIUM 9.2 MG/DL (8.5-10.1); CARBON DIOXIDE 33 MMOL/L (21-32); CHLORIDE 101 MMOL/L (98-107); PHOSPHORUS 4.4 MG/DL (2.5-4.9); POTASSIUM 4.2 MMOL/L (3.5-5.1); SODIUM 140 MMOL/L (136-145)
[2019-11-27 12:00] VITALS: BP 152/51
--- NOTE | 2019-11-27 13:15 | Nephrology Progress Note ---
Assessment/Plan Problem List: (1) Respiratory distress (2) Diabetes mellitus (3) Hypertension (4) Renal failure (ARF), acute on chronic Assessment Patient's current problem is dyspnea Most likely volume overload versus pneumonitis Other conditions: Renal failure (ARF), acute on chronic h/o Metabolic acidosis h/oElectrolyte imbalance Hyponatremia and hyperkalemia h/oAnemia h/o CHF (congestive heart failure) Plan November 26: Last dialysis November 24. Status quo. Labs reviewed. Medication list reviewed. Continue to monitor renal parameters. Dialysis as needed. November 25: Patient was dialyzed yesterday. Today is due for insertion of a GT tube. Patient pulled out his previous GT tube. Labs reviewed. Electrolytes abnormalities adjusted. Continue to monitor renal parameters. Patient is off BiPAP and on nasal cannula now. I believe that upon discharge the patient requires 2-3 times a week dialysis and ultrafiltration however upon discharge the patient needs to be followed by a resolution specialist in the facility that he goes to to assess on a regular basis the need and frequency for dialysis. November 24 : Late note entry due to system problem at the [facility] today. Patient due for dialysis and ultrafiltration today. Labs reviewed. Chest x-ray results not available on EMR. Last dialysis November 21. Continue pulmonary toilet. Patient remains on BiPAP. Will check labs tomorrow. Subjective ROS Limited/Unobtainable: No Constitutional: Reports: malaise Objective Objective Last 24 Hour Vital Signs Date Time Temp Pulse Resp B/P (MAP) Pulse Ox O2 Delivery O2 Flow Rate FiO2 11/27/19 12:00 3.0 11/27/19 09:00 68 105/78 11/27/19 09:00 68 105/78 11/27/19 08:13 Nasal Cannula 2.0 11/27/19 08:00 3.0 11/27/19 08:00 97.7 68 20 105/78 (87) 97 11/27/19 08:00 66 11/27/19 04:00 97.9 70 18 130/83 (99) 96 11/27/19 04:00 3.0 11/27/19 04:00 68 11/27/19 00:00 99.8 71 18 101/57 (72) 96 11/27/19 00:00 3.0 11/27/19 00:00 64 11/26/19 21:00 Nasal Cannula 3.0 11/26/19 20:37 70 163/55 11/26/19 20:00 98.8 69 18 163/55 (91) 94 11/26/19 20:00 68 11/26/19 18:45 99 Nasal Cannula 2.0 28 11/26/19 16:00 65 11/26/19 16:00 30 11/26/19 16:00 97.7 66 20 145/52 (83) 94 11/26/19 13:52 97.9 61 22 140/50 100 Nasal Cannula 3 11/26/19 13:42 58 20 141/56 100 Nasal Cannula 3 11/26/19 13:37 59 20 143/56 100 Nasal Cannula 3 11/26/19 13:36 61 16 100 11/26/19 13:32 97.2 61 21 147/55 100 Nasal Cannula 3 Intake and Output 11/26/19 11/27/19 19:00 07:00 Intake Total 150 ml Balance 150 ml Intake IV Total 150 ml # Voids 2 2 # Bowel Movements 1 Laboratory Tests 11/27/19 07:50: White Blood Count 6.8, Red Blood Count 3.25L, Hemoglobin 9.1L, Hematocrit 30.6L , Mean Corpuscular Volume 94, Mean Corpuscular Hemoglobin 28.1, Mean Corpuscular Hemoglobin Concent 29.8L, Red Cell Distribution Width 15.2H, Platelet Count 304, Mean Platelet Volume 5.8L, Neutrophils (%) (Auto) 73.2, Lymphocytes (%) (Auto) 15.5L, Monocytes (%) (Auto) 9.3, Eosinophils (%) (Auto) 0.8, Basophils (%) (Auto) 1.2, Sodium Level 140, Potassium Level 4.2, Chloride Level 101, Carbon Dioxide Level 33H, Anion Gap 6, Blood Urea Nitrogen 53H, Creatinine 3.0H, Estimat Glomerular Filtration Rate 20.2, Glucose Level 178H, Calcium Level 9.2, Phosphorus Level 4.4, Magnesium Level 2.7H, Total Bilirubin 0.4, Aspartate Amino Transf (AST/SGOT) 19, Alanine Aminotransferase (ALT/SGPT) 11L, Alkaline Phosphatase 166H, Total Protein 6.6, Albumin 2.5L, Globulin 4.1, Albumin/Globulin Ratio 0.6L Height (Feet): 5 Height (Inches): 5.00 Weight (Pounds): 169 General Appearance: no apparent distress Cardiovascular: normal rate Respiratory/Chest: decreased breath sounds Abdomen: distended Naveed Vanegas MD Nov 27, 2019 13:15
[2019-11-27 16:00] VITALS: BP 132/49
--- NOTE | 2019-11-27 19:28 | General Progress Note ---
Assessment/Plan Status Narrative Patient will have dialysis catheter did not have a G-tube refused to use BiPAP but in the past patient accepted BiPAP as long as it was not imposed upon him and it was the middle of choice having BiPAP available of venous system where he came in saying no he will accept I do not think is appropriate for ethical committee and to attribute his lack of knowledge to dementia repeat laboratory tests will be done in a.m. AYUSH CHANG MD Subjective Constitutional: Reports: no symptoms, other - Patient is awake alert afebrile hemodynamically stable I have discussed with him his refusal of BiPAP does not want anything wishes for supporting him in the conversation he understood that if he would not use BiPAP he might not survive in spite of that he said I do not want BiPAP I do not think that this can be put on dementia may be on misunderstanding but not dementia I talked to him about the G-tube he does not want a G-tube he understands that he does not get enough calories or will not get anything but they think that this is a violation of his right I told him that he and his answer was no I do not consider this demented HEENT: Reports: no symptoms Cardiovascular: Reports: no symptoms Respiratory: Reports: no symptoms, other - Patient had leukopenia to complete sentences because of the shortness of breath I asked him to do 1 mL seemed to help to talk he said no Gastrointestinal/Abdominal: Reports: no symptoms Genitourinary: Reports: no symptoms Allergies: Coded Allergies: PENICILLINS (Verified Allergy, Unknown, 10/25/19) tolerated Ceftriaxone Uncoded Allergies: PENICILLIN (Allergy, Unknown, 11/23/19) Objective Last 24 Hour Vital Signs Date Time Temp Pulse Resp B/P (MAP) Pulse Ox O2 Delivery O2 Flow Rate FiO2 11/27/19 16:00 97.5 59 20 132/49 (76) 97 11/27/19 16:00 58 11/27/19 16:00 3.0 11/27/19 12:00 3.0 11/27/19 12:00 60 11/27/19 12:00 97.5 70 18 152/51 (84) 98 11/27/19 09:00 68 105/78 11/27/19 09:00 68 105/78 11/27/19 08:13 Nasal Cannula 2.0 11/27/19 08:00 3.0 11/27/19 08:00 97.7 68 20 105/78 (87) 97 11/27/19 08:00 66 11/27/19 07:16 97 Nasal Cannula 2.0 28 11/27/19 04:00 97.9 70 18 130/83 (99) 96 11/27/19 04:00 3.0 11/27/19 04:00 68 11/27/19 00:00 99.8 71 18 101/57 (72) 96 11/27/19 00:00 3.0 11/27/19 00:00 64 11/26/19 21:00 Nasal Cannula 3.0 11/26/19 20:37 70 163/55 11/26/19 20:00 98.8 69 18 163/55 (91) 94 11/26/19 20:00 68 Intake and Output 11/26/19 11/27/19 19:00 07:00 Intake Total 150 ml 40 ml Balance 150 ml 40 ml IV Total 150 ml Tube Feeding 40 ml # Voids 2 2 # Bowel Movements 1 Laboratory Tests 11/27/19 07:50: White Blood Count 6.8, Red Blood Count 3.25L, Hemoglobin 9.1L, Hematocrit 30.6L , Mean Corpuscular Volume 94, Mean Corpuscular Hemoglobin 28.1, Mean Corpuscular Hemoglobin Concent 29.8L, Red Cell Distribution Width 15.2H, Platelet Count 304, Mean Platelet Volume 5.8L, Neutrophils (%) (Auto) 73.2, Lymphocytes (%) (Auto) 15.5L, Monocytes (%) (Auto) 9.3, Eosinophils (%) (Auto) 0.8, Basophils (%) (Auto) 1.2, Sodium Level 140, Potassium Level 4.2, Chloride Level 101, Carbon Dioxide Level 33H, Anion Gap 6, Blood Urea Nitrogen 53H, Creatinine 3.0H, Estimat Glomerular Filtration Rate 20.2, Glucose Level 178H, Calcium Level 9.2, Phosphorus Level 4.4, Magnesium Level 2.7H, Total Bilirubin 0.4, Aspartate Amino Transf (AST/SGOT) 19, Alanine Aminotransferase (ALT/SGPT) 11L, Alkaline Phosphatase 166H, Total Protein 6.6, Albumin 2.5L, Globulin 4.1, Albumin/Globulin Ratio 0.6L Height (Feet): 5 Height (Inches): 5.00 Weight (Pounds): 169 General Appearance: WD/WN, alert EENT: normal ENT inspection Neck: normal alignment Cardiovascular: normal rate, regular rhythm, no gallop/murmur, no JVD Respiratory/Chest: lungs clear, normal breath sounds, other - Patient did have a low growth near and had to stop in mid sentence to take a deep breath Abdomen: normal bowel sounds, non tender, soft, no organomegaly, no mass Neurologic: alert, responsive Skin: other - I asked the patient if he knows where he is staying in the hospital I asked the patient if he knew what date he said I do not know this is due to lack of knowledge lack of coordination Ayush Chang MD Nov 27, 2019 19:28
[2019-11-27 20:00] VITALS: BP 132/47
[2019-11-27] MEDS: Dyna-Hex 2% Top Sol 2oz TOPIC SCH (20:36)
[2019-11-28] VITALS: BP 144/48
[2019-11-28 04:00] VITALS: BP 139/42
--- NOTE | 2019-11-28 07:21 | Hematology/Onc Progress Note ---
Assessment/Plan Assessment/Plan ASSESSMENT AND RECOMMENDATIONS: # Anemia of chronic disease due to underlying chronic medical issues, multifactorial --> Anemia w/u has been reviewed. --> no evidence of hemolysis is noted, peripheral smear has been reviewed --> hgb goal is >7, transfuse as needed --> currently remains stable, occult blood negative --> hgb 8.4->8.6->8.3->8->8.2->9.2-->9.2->8.9-->8.1-->8.7>9.4-->8.7-->8->7.8-> 7.5-->7.4-->7.5-->8.1-->8 --> some blood loss due to hematuria after inflated reyes pulled 8/6 am --> EPOGEN Started # Thrombocytopenia is likely due to infection --> plt trend 180-->149-->274 --> on abx as needed --> hep and hiv neg #. Leukocytosis with underlying infectionv stress reaction HISTORY --> per id and better --> for infection, ABX ctx/vanc-->off --> wbc 10-->5.9 # Acute kidney injury r/o potential reversible component --> reviewed meds, those that are renally cleared removed --> as per renal recs, appreciated --> cr 3.5-->4.2-->3.4 --> Hd started and dw renal # Hypertension, essential --> sbp goal is <140, consider anti-htn as needed --> currently started on hyralazine 25mg po q6h prn sbp >140 # CHF - hx of CHf --> diuresis with lasix as needed --> cardiology recs appreciated prior adm #. Bilateral lower extremity amputee, metatarsal several years ago #. Dysphagia s/p peg --> peg pulled out and now with gtube 11/25 #. Hyperkalemia -- kayxelate as needed #. Agitation requires restraints #. Dvt ppx scds --> xarelto=> off The time the note was entered does not necessarily correspond to the time the patient was seen. GREATLY APPRECIATE CONSULTATION. Subjective Cardiovascular: Denies: no symptoms, chest pain, edema, irregular heart rate, lightheadedness, palpitations, syncope, other Respiratory: Denies: no symptoms, cough, shortness of breath, SOB with excertion, SOB at rest, sputum, wheezing, other Gastrointestinal/Abdominal: Denies: no symptoms, abdomen distended, abdominal pain, black stools, tarry stools, blood in stool, constipated, diarrhea, difficulty swallowing, nausea, poor appetite, poor fluid intake, rectal bleeding , vomiting, other Genitourinary: Denies: no symptoms, burning, discharge, frequency, flank pain, hematuria, incontinence, pain, urgency, other Neurologic/Psychiatric: Denies: no symptoms, anxiety, depressed, emotional problems, headache, numbness, paresthesia, pre-existing deficit, seizure, tingling, tremors, weakness, other Endocrine: Denies: no symptoms, excessive sweating, flushing, intolerance to cold, intolerance to heat, increased hunger, increased thirst, increased urine, unexplained weight gain, unexplained weight loss, other Allergies: Coded Allergies: PENICILLINS (Verified Allergy, Unknown, 10/25/19) tolerated Ceftriaxone Uncoded Allergies: PENICILLIN (Allergy, Unknown, 11/23/19) Subjective 11/23 came back from [facility] due to lack of bipap capability, hgb 7.5 11/24 labs reviewed, remains sob, with a hgb 8.1, no bleeding, jag rn, hold off prbc 11/25 labs are noted, for egd and peg in the am, jag salas, on nc 11/27 getting 3l nc overnight, has been refusing bipap unfortunately, hgb stable Objective Objective Current Medications Medications (Trade) Dose Ordered Sig/Cammy Route PRN Reason Start Time Stop Time Status Last Admin Dose Admin Allopurinol (allopurinoL) 300 mg DAILY ORAL 11/26/19 10:30 12/24/19 10:29 11/27/19 08:56 Amlodipine Besylate (Norvasc) 5 mg Q12HR ORAL 11/26/19 10:30 12/24/19 10:29 11/27/19 20:37 Apixaban (Eliquis) 2.5 mg BID ORAL 11/26/19 10:30 02/22/20 10:29 11/27/19 17:32 Atenolol (Tenormin) 100 mg DAILY ORAL 11/26/19 10:30 12/24/19 10:29 Atorvastatin Calcium (Lipitor) 10 mg BEDTIME ORAL 11/26/19 21:00 02/22/20 20:59 11/27/19 20:36 Chlorhexidine Gluconate (Yi-Hex 2%) 1 applic DAILY@1999 TOPIC 11/26/19 20:00 02/24/20 19:59 11/27/19 20:36 Docusate Sodium (Colace) 100 mg DAILY ORAL 11/26/19 10:30 12/24/19 10:29 11/27/19 08:58 Famotidine (Pepcid) 20 mg QOD GT 11/30/19 09:00 02/28/20 08:59 Lorazepam (Ativan 2mg/ml 1ml) 0.5 mg Q4H PRN IV For Anxiety 11/26/19 10:30 12/01/19 10:29 Pantoprazole (Protonix) 40 mg DAILY ORAL 11/26/19 10:30 12/24/19 10:29 11/27/19 08:56 Sennosides (Senokot) 8.6 mg DAILY PRN ORAL Constipation 11/26/19 10:30 12/26/19 10:29 Last 24 Hour Vital Signs Date Time Temp Pulse Resp B/P (MAP) Pulse Ox O2 Delivery O2 Flow Rate FiO2 11/28/19 04:00 3.0 11/28/19 04:00 59 11/28/19 04:00 99.5 59 26 139/42 (74) 94 11/28/19 00:00 98.6 60 20 144/48 (80) 97 11/28/19 00:00 59 11/27/19 21:00 Nasal Cannula 3.0 11/27/19 20:37 60 141/47 11/27/19 20:00 98.2 60 20 132/47 (75) 96 11/27/19 20:00 95 Nasal Cannula 2.0 28 11/27/19 20:00 3.0 11/27/19 16:00 97.5 59 20 132/49 (76) 97 11/27/19 16:00 58 11/27/19 16:00 3.0 11/27/19 12:00 3.0 11/27/19 12:00 60 11/27/19 12:00 97.5 70 18 152/51 (84) 98 11/27/19 09:00 68 105/78 11/27/19 09:00 68 105/78 11/27/19 08:13 Nasal Cannula 2.0 11/27/19 08:00 3.0 11/27/19 08:00 97.7 68 20 105/78 (87) 97 11/27/19 08:00 66 11/27/19 07:16 97 Nasal Cannula 2.0 28 11/27/19 04:00 97.9 70 18 130/83 (99) 96 11/27/19 04:00 3.0 11/27/19 04:00 68 11/27/19 00:00 99.8 71 18 101/57 (72) 96 11/27/19 00:00 3.0 11/27/19 00:00 64 11/26/19 21:00 Nasal Cannula 3.0 11/26/19 20:37 70 163/55 11/26/19 20:00 98.8 69 18 163/55 (91) 94 11/26/19 20:00 68 11/26/19 18:45 99 Nasal Cannula 2.0 28 11/26/19 16:00 65 11/26/19 16:00 30 11/26/19 16:00 97.7 66 20 145/52 (83) 94 11/26/19 13:52 97.9 61 22 140/50 100 Nasal Cannula 3 11/26/19 13:42 58 20 141/56 100 Nasal Cannula 3 11/26/19 13:37 59 20 143/56 100 Nasal Cannula 3 11/26/19 13:36 61 16 100 11/26/19 13:32 97.2 61 21 147/55 100 Nasal Cannula 3 11/26/19 12:00 65 11/26/19 12:00 30 11/26/19 12:00 96.6 63 18 155/43 (80) 98 11/26/19 09:00 Nasal Cannula 2.0 11/26/19 08:00 97.7 69 20 157/49 (85) 99 11/26/19 08:00 69 11/26/19 08:00 30 11/26/19 07:56 99 Nasal Cannula 2.0 28 Intake and Output 11/27/19 11/28/19 19:00 07:00 Intake Total 740 ml 150 ml Balance 740 ml 150 ml Intake Free Water 300 ml 110 ml Tube Feeding 440 ml 40 ml # Voids 2 2 # Bowel Movements 1 Labs Test 11/26/19 03:25 11/27/19 07:50 White Blood Count 6.1 K/UL (4.8-10.8) 6.8 K/UL (4.8-10.8) Red Blood Count 2.84 M/UL (4.70-6.10) 3.25 M/UL (4.70-6.10) Hemoglobin 8.0 G/DL (14.2-18.0) 9.1 G/DL (14.2-18.0) Hematocrit 26.8 % (42.0-52.0) 30.6 % (42.0-52.0) Mean Corpuscular Volume 95 FL (80-99) 94 FL (80-99) Mean Corpuscular Hemoglobin 28.2 PG (27.0-31.0) 28.1 PG (27.0-31.0) Mean Corpuscular Hemoglobin Concent 29.8 G/DL (32.0-36.0) 29.8 G/DL (32.0-36.0) Red Cell Distribution Width 15.0 % (11.6-14.8) 15.2 % (11.6-14.8) Platelet Count 300 K/UL (150-450) 304 K/UL (150-450) Mean Platelet Volume 6.4 FL (6.5-10.1) 5.8 FL (6.5-10.1) Neutrophils (%) (Auto) 77.5 % (45.0-75.0) 73.2 % (45.0-75.0) Lymphocytes (%) (Auto) 12.8 % (20.0-45.0) 15.5 % (20.0-45.0) Monocytes (%) (Auto) 8.2 % (1.0-10.0) 9.3 % (1.0-10.0) Eosinophils (%) (Auto) 0.8 % (0.0-3.0) 0.8 % (0.0-3.0) Basophils (%) (Auto) 0.7 % (0.0-2.0) 1.2 % (0.0-2.0) Sodium Level 139 MMOL/L (136-145) 140 MMOL/L (136-145) Potassium Level 3.9 MMOL/L (3.5-5.1) 4.2 MMOL/L (3.5-5.1) Chloride Level 101 MMOL/L (98-107) 101 MMOL/L (98-107) Carbon Dioxide Level 31 MMOL/L (21-32) 33 MMOL/L (21-32) Anion Gap 7 mmol/L (5-15) 6 mmol/L (5-15) Blood Urea Nitrogen 33 mg/dL (7-18) 53 mg/dL (7-18) Creatinine 2.4 MG/DL (0.55-1.30) 3.0 MG/DL (0.55-1.30) Estimat Glomerular Filtration Rate 26.1 mL/min (>60) 20.2 mL/min (>60) Glucose Level 91 MG/DL (74-106) 178 MG/DL (74-106) Calcium Level 8.3 MG/DL (8.5-10.1) 9.2 MG/DL (8.5-10.1) Phosphorus Level 3.0 MG/DL (2.5-4.9) 4.4 MG/DL (2.5-4.9) Magnesium Level 2.3 MG/DL (1.8-2.4) 2.7 MG/DL (1.8-2.4) Total Bilirubin 0.6 MG/DL (0.2-1.0) 0.4 MG/DL (0.2-1.0) Aspartate Amino Transf (AST/SGOT) 18 U/L (15-37) 19 U/L (15-37) Alanine Aminotransferase (ALT/SGPT) 10 U/L (12-78) 11 U/L (12-78) Alkaline Phosphatase 132 U/L (46-116) 166 U/L (46-116) C-Reactive Protein, Quantitative 5.7 mg/dL (0.00-0.90) Total Protein 6.1 G/DL (6.4-8.2) 6.6 G/DL (6.4-8.2) Albumin 2.2 G/DL (3.4-5.0) 2.5 G/DL (3.4-5.0) Globulin 3.9 g/dL 4.1 g/dL Albumin/Globulin Ratio 0.6 (1.0-2.7) 0.6 (1.0-2.7) Height (Feet): 5 Height (Inches): 5.00 Weight (Pounds): 169 Objective GENERAL: Not in acute distress. HEENT: ncat PULMONARY: Decreased breath sounds. ++ bipap v nc+ CHEST: ++permacath right chest CARDIOVASCULAR: Regular rate. No S3 or S4. ABDOMEN: Soft, nontender, nondistended.++peg EXTREMITIES: 1+ edema. No cyanosis, swelling, or edema. 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 Melvin Rizzo MD Nov 28, 2019 07:21
--- NOTE | 2019-11-28 07:28 | General Progress Note ---
Assessment/Plan Problem List: (1) Hypertension ICD Codes: I10 - Essential (primary) hypertension SNOMED: 04734606 (2) Diabetes mellitus ICD Codes: E11.9 - Type 2 diabetes mellitus without complications SNOMED: 07880387 (3) Cholelithiasis ICD Codes: K80.20 - Calculus of gallbladder without cholecystitis without obstruction SNOMED: 473446902 Assessment/Plan: dysphagia s/p GT placement GTF monitor for residuals Subjective ROS Limited/Unobtainable: No Allergies: Coded Allergies: PENICILLINS (Verified Allergy, Unknown, 10/25/19) tolerated Ceftriaxone Uncoded Allergies: PENICILLIN (Allergy, Unknown, 11/23/19) Objective Last 24 Hour Vital Signs Date Time Temp Pulse Resp B/P (MAP) Pulse Ox O2 Delivery O2 Flow Rate FiO2 11/28/19 04:00 3.0 11/28/19 04:00 59 11/28/19 04:00 99.5 59 26 139/42 (74) 94 11/28/19 00:00 98.6 60 20 144/48 (80) 97 11/28/19 00:00 59 11/27/19 21:00 Nasal Cannula 3.0 11/27/19 20:37 60 141/47 11/27/19 20:00 98.2 60 20 132/47 (75) 96 11/27/19 20:00 95 Nasal Cannula 2.0 28 11/27/19 20:00 3.0 11/27/19 16:00 97.5 59 20 132/49 (76) 97 11/27/19 16:00 58 11/27/19 16:00 3.0 11/27/19 12:00 3.0 11/27/19 12:00 60 11/27/19 12:00 97.5 70 18 152/51 (84) 98 11/27/19 09:00 68 105/78 11/27/19 09:00 68 105/78 11/27/19 08:13 Nasal Cannula 2.0 11/27/19 08:00 3.0 11/27/19 08:00 97.7 68 20 105/78 (87) 97 11/27/19 08:00 66 Intake and Output 11/27/19 11/28/19 19:00 07:00 Intake Total 740 ml 150 ml Balance 740 ml 150 ml Intake Free Water 300 ml 110 ml Tube Feeding 440 ml 40 ml # Voids 2 2 # Bowel Movements 1 Laboratory Tests 11/27/19 07:50: White Blood Count 6.8, Red Blood Count 3.25L, Hemoglobin 9.1L, Hematocrit 30.6L , Mean Corpuscular Volume 94, Mean Corpuscular Hemoglobin 28.1, Mean Corpuscular Hemoglobin Concent 29.8L, Red Cell Distribution Width 15.2H, Platelet Count 304, Mean Platelet Volume 5.8L, Neutrophils (%) (Auto) 73.2, Lymphocytes (%) (Auto) 15.5L, Monocytes (%) (Auto) 9.3, Eosinophils (%) (Auto) 0.8, Basophils (%) (Auto) 1.2, Sodium Level 140, Potassium Level 4.2, Chloride Level 101, Carbon Dioxide Level 33H, Anion Gap 6, Blood Urea Nitrogen 53H, Creatinine 3.0H, Estimat Glomerular Filtration Rate 20.2, Glucose Level 178H, Calcium Level 9.2, Phosphorus Level 4.4, Magnesium Level 2.7H, Total Bilirubin 0.4, Aspartate Amino Transf (AST/SGOT) 19, Alanine Aminotransferase (ALT/SGPT) 11L, Alkaline Phosphatase 166H, Total Protein 6.6, Albumin 2.5L, Globulin 4.1, Albumin/Globulin Ratio 0.6L Height (Feet): 5 Height (Inches): 5.00 Weight (Pounds): 169 General Appearance: no apparent distress EENT: normal ENT inspection Neck: supple Cardiovascular: normal rate Respiratory/Chest: decreased breath sounds Abdomen: normal bowel sounds, non tender, soft Extremities: non-tender Lawrence Humphreys MD Nov 28, 2019 07:27
[2019-11-28 08:00] VITALS: BP 158/43
--- NOTE | 2019-11-28 08:25 | Pulmonology Progress Note ---
Reema Hanna DECK HAND 11/28/19 0825: Subjective ROS Limited/Unobtainable: No Allergies: Coded Allergies: PENICILLINS (Verified Allergy, Unknown, 10/25/19) tolerated Ceftriaxone Uncoded Allergies: PENICILLIN (Allergy, Unknown, 11/23/19) Subjective on tele off BiPAP now on O2 via NC, pulse ox stable no signs of resp distress continue to decline BiPAP at night bioethics eval was done 11/25 Objective Last 24 Hour Vital Signs Date Time Temp Pulse Resp B/P (MAP) Pulse Ox O2 Delivery O2 Flow Rate FiO2 11/28/19 04:00 3.0 11/28/19 04:00 59 11/28/19 04:00 99.5 59 26 139/42 (74) 94 11/28/19 00:00 98.6 60 20 144/48 (80) 97 11/28/19 00:00 59 11/27/19 21:00 Nasal Cannula 3.0 11/27/19 20:37 60 141/47 11/27/19 20:00 98.2 60 20 132/47 (75) 96 11/27/19 20:00 95 Nasal Cannula 2.0 28 11/27/19 20:00 3.0 11/27/19 16:00 97.5 59 20 132/49 (76) 97 11/27/19 16:00 58 11/27/19 16:00 3.0 11/27/19 12:00 3.0 11/27/19 12:00 60 11/27/19 12:00 97.5 70 18 152/51 (84) 98 11/27/19 09:00 68 105/78 11/27/19 09:00 68 105/78 Intake and Output 11/27/19 11/28/19 19:00 07:00 Intake Total 740 ml 150 ml Balance 740 ml 150 ml Intake Free Water 300 ml 110 ml Tube Feeding 440 ml 40 ml # Voids 2 2 # Bowel Movements 1 Objective General Appearance: alert , confused, Romanian speaking Lines, tubes and drains: peripheral HEENT: normocephalic, atraumatic, anicteric Neck: supple Respiratory/Chest: lungs clear, no respiratory distress Cardiovascular/Chest: normal rate Abdomen: non tender, soft, feeding tube - G tube Extremities: BL foot TMA Neurologic: abnormal gait, alert, confused, responsive Musculoskeletal: atrophy - BLE Current Medications Medications (Trade) Dose Ordered Sig/Cammy Route PRN Reason Start Time Stop Time Status Last Admin Dose Admin Allopurinol (allopurinoL) 300 mg DAILY ORAL 11/26/19 10:30 12/24/19 10:29 11/27/19 08:56 Amlodipine Besylate (Norvasc) 5 mg Q12HR ORAL 11/26/19 10:30 12/24/19 10:29 11/27/19 20:37 Apixaban (Eliquis) 2.5 mg BID ORAL 11/26/19 10:30 02/22/20 10:29 11/27/19 17:32 Atenolol (Tenormin) 100 mg DAILY ORAL 11/26/19 10:30 12/24/19 10:29 Atorvastatin Calcium (Lipitor) 10 mg BEDTIME ORAL 11/26/19 21:00 02/22/20 20:59 11/27/19 20:36 Chlorhexidine Gluconate (Yi-Hex 2%) 1 applic DAILY@1999 TOPIC 11/26/19 20:00 02/24/20 19:59 11/27/19 20:36 Docusate Sodium (Colace) 100 mg DAILY ORAL 11/26/19 10:30 12/24/19 10:29 11/27/19 08:58 Famotidine (Pepcid) 20 mg QOD GT 11/30/19 09:00 02/28/20 08:59 Lorazepam (Ativan 2mg/ml 1ml) 0.5 mg Q4H PRN IV For Anxiety 11/26/19 10:30 12/01/19 10:29 Sennosides (Senokot) 8.6 mg DAILY PRN ORAL Constipation 11/26/19 10:30 12/26/19 10:29 Assessment/Plan Assessment/Plan ASSESSMENT Prior acute hypoxemic hypercapnic respiratory failure requiring BiPAP Chronic CO2 retention Possible DAYANA Aspiration risk s/p recent PNA Dysphagia , s/p PEG , pulled out, s/p replacement of PEG 11/16 Acute kidney injury on chronic kidney disease, requiring start of HD 10/30 Anemia of chronic kidney disease Diabetes mellitus HTN PVD with hx of bilateral foot MTA Refusal of care PLAN OF CARE tele BiPAP at HS and prn , refusing again currently on O2 3 L via NC titrate O2, pulm toilet patient likely has ADYANA. recommend sleep study as OP fup with CXR ABG prn rapid COVID NGT, BiPAP prn and HS ethics eval if pt can refuse BiPAP ( patient with dementia, confusion), daughter wants BiPAP and unclear how he refused if was on restraints? in our opinion BiPAP should be on standing order and available in the facility when patient will be transferred need formal polysomnogram to be done as OP bioethics eval appreciated, done 11/25 . per bioethics: pt with diminished capacity and does not understand the consequences of refusing bi-pap, yet it seems inhumane to force him to endure it recommended that he should be discharged to the SNF on nasal canula with instructions not to be sent back to the acute care hospital for refusal to accept bi-pap. we are happy to have a family conference to explain the reasoning here if the family is willing to speak with us. ask SW to schedule family conference dc plan to SNF CM to discuss with family ( not want [facility]) completed Rx for PNA on prior admission Venous Duplex BLE 10/25 -> NGT on Eliquis aspir precautions, new BSSE pending TF via GT for now protein supplements will get CXR in am HD as per nephro recs monitor volumes, renal paramerts, lytes s/p placement of permanent HD catheter R chest 11/07 s/p removal of temporary HD catheter by surgeon ECHO with pEF 55-60% rate control with BB, HR stable on chronic a/c , was on hold for PEG, Eliquis resumed BP management with CCB and BB, optimize as needed continue statin prior HgA1c -6.1 hold oral anti-glycemic monitor HH with goal to keep Hgb above 7 anemia w/up prior noted , heme on board on EPO GI prophayxlis supportive care case discussed and evaluated by supervising physician Jonathon Pabon MD 11/28/19 1152: Subjective Allergies: Coded Allergies: PENICILLINS (Verified Allergy, Unknown, 10/25/19) tolerated Ceftriaxone Uncoded Allergies: PENICILLIN (Allergy, Unknown, 11/23/19) Assessment/Plan Assessment/Plan Patient seen and examined with DECK HAND. Agree with above A&P as it reflects our joint deliberations. Reema Hanna NP Nov 28, 2019 08:25 Jonathon Pabon MD Nov 28, 2019 11:52
[2019-11-28] MEDS ORDERED: Albuterol/Ipratropium 3ml neb HHN PRN (08:30)
[2019-11-28] MEDS: Docusate 100mg cap ORAL SCH (08:45)
[2019-11-28] MEDS: Eliquis 2.5mg tablet ORAL SCH ×2 (08:45→17:24)
[2019-11-28 09:33] LABS: EOSINOPHILS % (AUTO) 1.2 % (0.0-3.0); HEMATOCRIT 28.6 % (42.0-52.0); HEMOGLOBIN 8.2 G/DL (14.2-18.0); LYMPHOCYTES % (AUTO) 18.7 % (20.0-45.0); MEAN CORPUSCULAR VOLUME 95 FL (80-99); NEUTROPHILS % (AUTO) 71.1 % (45.0-75.0); PLATELET COUNT 245 K/UL (150-450); RED BLOOD COUNT 3.01 M/UL (4.70-6.10); RED CELL DISTRIBUTION WIDTH 15.4 % (11.6-14.8); WHITE BLOOD COUNT 6.4 K/UL (4.8-10.8)
[2019-11-28 10:22] LABS: ALANINE AMINOTRANSFERASE 9 U/L (12-78); ALBUMIN 2.4 G/DL (3.4-5.0); ALBUMIN/GLOBULIN RATIO 0.6 (1.0-2.7); ALKALINE PHOSPHATASE 176 U/L (46-116); ANION GAP 6 mmol/L (5-15); ASPARTATE AMINO TRANSFERASE 17 U/L (15-37); BILIRUBIN,TOTAL 0.4 MG/DL (0.2-1.0); BLOOD UREA NITROGEN 62 mg/dL (7-18); CALCIUM 8.9 MG/DL (8.5-10.1); CARBON DIOXIDE 33 MMOL/L (21-32); CHLORIDE 103 MMOL/L (98-107); CREATININE 3.3 MG/DL (0.55-1.30); PHOSPHORUS 4.1 MG/DL (2.5-4.9); POTASSIUM 4.1 MMOL/L (3.5-5.1); SODIUM 142 MMOL/L (136-145)
--- NOTE | 2019-11-28 10:34 | Nephrology Progress Note ---
Assessment/Plan Problem List: (1) Respiratory distress (2) Diabetes mellitus (3) Hypertension (4) Renal failure (ARF), acute on chronic Assessment Patient's current problem is dyspnea Most likely volume overload versus pneumonitis Other conditions: Renal failure (ARF), acute on chronic h/o Metabolic acidosis h/oElectrolyte imbalance Hyponatremia and hyperkalemia h/oAnemia h/o CHF (congestive heart failure) Plan November 27: BNP rising. Not much urine output. Will dialyze and ultrafiltrate tomorrow. Labs reviewed. Continue to adjust blood pressure medications. Continue per consultants. November 26: Last dialysis November 24. Status quo. Labs reviewed. Medication list reviewed. Continue to monitor renal parameters. Dialysis as needed. November 25: Patient was dialyzed yesterday. Today is due for insertion of a GT tube. Patient pulled out his previous GT tube. Labs reviewed. Electrolytes abnormalities adjusted. Continue to monitor renal parameters. Patient is off BiPAP and on nasal cannula now. I believe that upon discharge the patient requires 2-3 times a week dialysis and ultrafiltration however upon discharge the patient needs to be followed by a crm marketing analyst in the facility that he goes to to assess on a regular basis the need and frequency for dialysis. November 24 : Late note entry due to system problem at the [facility] today. Patient due for dialysis and ultrafiltration today. Labs reviewed. Chest x-ray results not available on EMR. Last dialysis November 21. Continue pulmonary toilet. Patient remains on BiPAP. Will check labs tomorrow. Subjective ROS Limited/Unobtainable: No Constitutional: Reports: malaise Objective Objective Last 24 Hour Vital Signs Date Time Temp Pulse Resp B/P (MAP) Pulse Ox O2 Delivery O2 Flow Rate FiO2 11/28/19 09:00 Nasal Cannula 3.0 11/28/19 08:56 98 Nasal Cannula 2.0 28 11/28/19 08:46 64 158/43 11/28/19 08:46 64 158/43 11/28/19 08:00 98.2 64 20 158/43 (81) 96 11/28/19 08:00 61 11/28/19 08:00 3.0 11/28/19 04:00 3.0 11/28/19 04:00 59 11/28/19 04:00 99.5 59 26 139/42 (74) 94 11/28/19 00:00 98.6 60 20 144/48 (80) 97 11/28/19 00:00 59 11/27/19 21:00 Nasal Cannula 3.0 11/27/19 20:37 60 141/47 11/27/19 20:00 98.2 60 20 132/47 (75) 96 11/27/19 20:00 95 Nasal Cannula 2.0 28 11/27/19 20:00 3.0 11/27/19 16:00 97.5 59 20 132/49 (76) 97 11/27/19 16:00 58 11/27/19 16:00 3.0 11/27/19 12:00 3.0 11/27/19 12:00 60 11/27/19 12:00 97.5 70 18 152/51 (84) 98 Intake and Output 11/27/19 11/28/19 19:00 07:00 Intake Total 740 ml 190 ml Balance 740 ml 190 ml Intake Free Water 300 ml 110 ml Tube Feeding 440 ml 80 ml # Voids 2 2 # Bowel Movements 1 Laboratory Tests 11/28/19 06:55: White Blood Count 6.4, Red Blood Count 3.01L, Hemoglobin 8.2L, Hematocrit 28.6L , Mean Corpuscular Volume 95, Mean Corpuscular Hemoglobin 27.2, Mean Corpuscular Hemoglobin Concent 28.7L, Red Cell Distribution Width 15.4H, Platelet Count 245, Mean Platelet Volume 5.9L, Neutrophils (%) (Auto) 71.1, Lymphocytes (%) (Auto) 18.7L, Monocytes (%) (Auto) 8.0, Eosinophils (%) (Auto) 1.2, Basophils (%) (Auto) 1.0, Sodium Level 142, Potassium Level 4.1, Chloride Level 103, Carbon Dioxide Level 33H, Anion Gap 6, Blood Urea Nitrogen 62H, Creatinine 3.3H, Estimat Glomerular Filtration Rate 18.1, Glucose Level 171H, Calcium Level 8.9, Phosphorus Level 4.1, Magnesium Level 2.7H, Total Bilirubin 0.4, Aspartate Amino Transf (AST/SGOT) 17, Alanine Aminotransferase (ALT/SGPT) 9L, Alkaline Phosphatase 176H, C-Reactive Protein, Quantitative 3.4H, Pro-B- Type Natriuretic Peptide [id number], Total Protein 6.4, Albumin 2.4L, Globulin 4.0, Albumin/Globulin Ratio 0.6L Height (Feet): 5 Height (Inches): 5.00 Weight (Pounds): 169 General Appearance: no apparent distress, lethargic Cardiovascular: normal rate, bradycardia Respiratory/Chest: decreased breath sounds Abdomen: distended, other Naveed Vanegas MD Nov 28, 2019 10:34
[2019-11-28 12:00] VITALS: BP 126/94
[2019-11-28] MEDS: Docusate 100mg/10ml Liq NG SCH ×2 (12:53→17:24)
[2019-11-28 15:53] VITALS: BP 130/57
--- NOTE | 2019-11-28 19:53 | General Progress Note ---
Progress Note Progress Note Patient is awake currently on the freeway and hemodynamically stable On physical examination blood pressure is 134/72 pulse is 68 temperature was 98 has been a normal BNP mucous membranes are moist and intact Neck was supple with no JVD radiology Clear without rhonchi rales or wheezing Heart has normal sounds without irregular beats Abdomen is soft nontender with normal bowel sounds Extremities no cyanosis clubbing or edema laboratory data All laboratory data were reviewed Assessment and plan Patient remains hostile to the use of BiPAP is the decision of the ethical committee was to allow him to follow his wishes the only restriction is that he will not be able to be readmitted because of lack of use of BiPAP patient is scheduled to be discharged to [facility] and we are waiting for confirmation from the facility repeat laboratory tests will be done in a.m. Ayush Joe MD, MD Nov 28, 2019 19:53
[2019-11-28 20:00] VITALS: BP 135/44
[2019-11-28] MEDS: Dyna-Hex 2% Top Sol 2oz TOPIC SCH (21:12)
[2019-11-29] VITALS: BP 139/51
[2019-11-29 04:00] VITALS: BP 143/83
[2019-11-29 07:51] LABS: BASOPHILS % (AUTO) 0.6 % (0.0-2.0); EOSINOPHILS % (AUTO) 1.1 % (0.0-3.0); HEMATOCRIT 27.1 % (42.0-52.0); HEMOGLOBIN 8.1 G/DL (14.2-18.0); MEAN CORPUSCULAR VOLUME 95 FL (80-99); MONOCYTES % (AUTO) 5.4 % (1.0-10.0); NEUTROPHILS % (AUTO) 79.9 % (45.0-75.0); PLATELET COUNT 238 K/UL (150-450); RED BLOOD COUNT 2.85 M/UL (4.70-6.10); RED CELL DISTRIBUTION WIDTH 15.4 % (11.6-14.8); WHITE BLOOD COUNT 8.8 K/UL (4.8-10.8)
[2019-11-29 08:00] VITALS: BP 143/50
--- NOTE | 2019-11-29 08:08 | Hematology/Onc Progress Note ---
Assessment/Plan Assessment/Plan ASSESSMENT AND RECOMMENDATIONS: # Anemia of chronic disease due to underlying chronic medical issues, multifactorial --> Anemia w/u has been reviewed. --> no evidence of hemolysis is noted, peripheral smear has been reviewed --> hgb goal is >7, transfuse as needed --> currently remains stable, occult blood negative --> hgb 8.4->8.6->8.3->8->8.2->9.2-->9.2->8.9-->8.1-->8.7>9.4-->8.7-->8->7.8-> 7.5-->7.4-->7.5-->8.1-->8-->8.1 --> some blood loss due to hematuria after inflated reyes pulled 8/6 am --> EPOGEN Started # Thrombocytopenia is likely due to infection --> plt trend 180-->149-->274 --> on abx as needed --> hep and hiv neg #. Leukocytosis with underlying infectionv stress reaction HISTORY --> per id and better --> for infection, ABX ctx/vanc-->off --> wbc 10-->5.9 # Acute kidney injury r/o potential reversible component --> reviewed meds, those that are renally cleared removed --> as per renal recs, appreciated --> cr 3.5-->4.2-->3.4 --> Hd started and dw renal # Hypertension, essential --> sbp goal is <140, consider anti-htn as needed --> currently started on hyralazine 25mg po q6h prn sbp >140 # CHF - hx of CHf --> diuresis with lasix as needed --> cardiology recs appreciated prior adm #. Bilateral lower extremity amputee, metatarsal several years ago #. Dysphagia s/p peg --> peg pulled out and now with gtube 11/25 #. Hyperkalemia -- kayxelate as needed #. Agitation requires restraints #. Dvt ppx scds --> xarelto=> off The time the note was entered does not necessarily correspond to the time the patient was seen. GREATLY APPRECIATE CONSULTATION. Subjective Constitutional: Denies: no symptoms, chills, fever, malaise, weakness, other Cardiovascular: Denies: no symptoms, chest pain, edema, irregular heart rate, lightheadedness, palpitations, syncope, other Respiratory: Denies: no symptoms, cough, shortness of breath, SOB with excertion, SOB at rest, sputum, wheezing, other Gastrointestinal/Abdominal: Denies: no symptoms, abdomen distended, abdominal pain, black stools, tarry stools, blood in stool, constipated, diarrhea, difficulty swallowing, nausea, poor appetite, poor fluid intake, rectal bleeding , vomiting, other Genitourinary: Denies: no symptoms, burning, discharge, frequency, flank pain, hematuria, incontinence, pain, urgency, other Neurologic/Psychiatric: Denies: no symptoms, anxiety, depressed, emotional problems, headache, numbness, paresthesia, pre-existing deficit, seizure, tingling, tremors, weakness, other Endocrine: Denies: no symptoms, excessive sweating, flushing, intolerance to cold, intolerance to heat, increased hunger, increased thirst, increased urine, unexplained weight gain, unexplained weight loss, other Allergies: Coded Allergies: PENICILLINS (Verified Allergy, Unknown, 10/25/19) tolerated Ceftriaxone Uncoded Allergies: PENICILLIN (Allergy, Unknown, 11/23/19) Subjective 11/23 came back from [facility] due to lack of bipap capability, hgb 7.5 11/24 labs reviewed, remains sob, with a hgb 8.1, no bleeding, jag salas, hold off prbc 11/25 labs are noted, for egd and peg in the am, jag salas, on nc 11/27 getting 3l nc overnight, has been refusing bipap unfortunately, hgb stable 11/28 labs noted, with gtube feeds, again this am refusing bipap Objective Objective Current Medications Medications (Trade) Dose Ordered Sig/Cammy Route PRN Reason Start Time Stop Time Status Last Admin Dose Admin Albuterol/ Ipratropium (Albuterol/ Ipratropium) 3 ml Q4H PRN HHN Shortness of Breath 11/28/19 08:30 12/03/19 08:29 Allopurinol (allopurinoL) 300 mg DAILY ORAL 11/26/19 10:30 12/24/19 10:29 11/28/19 08:45 Amlodipine Besylate (Norvasc) 5 mg Q12HR GT 11/28/19 21:00 12/24/19 10:29 11/28/19 21:12 Apixaban (Eliquis) 2.5 mg BID ORAL 11/26/19 10:30 02/22/20 10:29 11/28/19 17:24 Atorvastatin Calcium (Lipitor) 10 mg BEDTIME ORAL 11/26/19 21:00 02/22/20 20:59 11/28/19 21:12 Chlorhexidine Gluconate (Yi-Hex 2%) 1 applic DAILY@1999 TOPIC 11/26/19 20:00 02/24/20 19:59 11/28/19 21:12 Docusate Sodium (Colace) 100 mg THREE TIMES A DAY NG 11/28/19 13:00 12/28/19 12:59 11/28/19 17:24 Lansoprazole (Prevacid) 30 mg DAILY GT 11/28/19 10:45 12/28/19 10:44 11/28/19 12:53 Lorazepam (Ativan 2mg/ml 1ml) 0.5 mg Q4H PRN IV For Anxiety 11/26/19 10:30 12/01/19 10:29 Metoprolol Tartrate (Lopressor) 12.5 mg Q12HR GT 11/29/19 09:00 02/27/20 08:59 Sennosides (Senokot) 8.6 mg DAILY PRN ORAL Constipation 11/26/19 10:30 12/26/19 10:29 Last 24 Hour Vital Signs Date Time Temp Pulse Resp B/P (MAP) Pulse Ox O2 Delivery O2 Flow Rate FiO2 11/29/19 04:00 2.5 11/29/19 04:00 98.9 58 18 143/83 (103) 98 11/29/19 04:00 61 11/29/19 00:00 98.2 62 20 139/51 (80) 96 11/29/19 00:00 61 11/28/19 22:15 Nasal Cannula 3.0 11/28/19 21:12 63 131/62 11/28/19 20:30 97 Nasal Cannula 2.0 28 11/28/19 20:00 98.4 58 20 135/44 (74) 98 11/28/19 20:00 61 11/28/19 20:00 2.5 11/28/19 16:00 2.5 11/28/19 15:53 98.8 79 20 130/57 (81) 97 11/28/19 12:00 98.2 62 18 126/94 (105) 98 11/28/19 12:00 58 11/28/19 12:00 2.5 11/28/19 09:00 Nasal Cannula 3.0 11/28/19 08:56 98 Nasal Cannula 2.0 28 11/28/19 08:46 64 158/43 11/28/19 08:46 64 158/43 11/28/19 08:00 98.2 64 20 158/43 (81) 96 11/28/19 08:00 61 11/28/19 08:00 3.0 11/28/19 04:00 3.0 11/28/19 04:00 59 11/28/19 04:00 99.5 59 26 139/42 (74) 94 11/28/19 00:00 98.6 60 20 144/48 (80) 97 11/28/19 00:00 59 11/27/19 21:00 Nasal Cannula 3.0 11/27/19 20:37 60 141/47 11/27/19 20:00 98.2 60 20 132/47 (75) 96 11/27/19 20:00 95 Nasal Cannula 2.0 28 11/27/19 20:00 3.0 11/27/19 16:00 97.5 59 20 132/49 (76) 97 11/27/19 16:00 58 11/27/19 16:00 3.0 11/27/19 12:00 3.0 11/27/19 12:00 60 11/27/19 12:00 97.5 70 18 152/51 (84) 98 11/27/19 09:00 68 105/78 11/27/19 09:00 68 105/78 11/27/19 08:13 Nasal Cannula 2.0 Intake and Output 11/28/19 11/29/19 19:00 07:00 Intake Total 630 ml 540 ml Output Total 3 ml Balance 630 ml 537 ml Intake Free Water 150 ml 100 ml Tube Feeding 480 ml 440 ml Output Urine Total 3 ml # Voids 2 # Bowel Movements 1 Labs Test 11/27/19 07:50 11/28/19 06:55 11/29/19 05:55 White Blood Count 6.8 K/UL (4.8-10.8) 6.4 K/UL (4.8-10.8) 8.8 K/UL (4.8-10.8) Red Blood Count 3.25 M/UL (4.70-6.10) 3.01 M/UL (4.70-6.10) 2.85 M/UL (4.70-6.10) Hemoglobin 9.1 G/DL (14.2-18.0) 8.2 G/DL (14.2-18.0) 8.1 G/DL (14.2-18.0) Hematocrit 30.6 % (42.0-52.0) 28.6 % (42.0-52.0) 27.1 % (42.0-52.0) Mean Corpuscular Volume 94 FL (80-99) 95 FL (80-99) 95 FL (80-99) Mean Corpuscular Hemoglobin 28.1 PG (27.0-31.0) 27.2 PG (27.0-31.0) 28.3 PG (27.0-31.0) Mean Corpuscular Hemoglobin Concent 29.8 G/DL (32.0-36.0) 28.7 G/DL (32.0-36.0) 29.8 G/DL (32.0-36.0) Red Cell Distribution Width 15.2 % (11.6-14.8) 15.4 % (11.6-14.8) 15.4 % (11.6-14.8) Platelet Count 304 K/UL (150-450) 245 K/UL (150-450) 238 K/UL (150-450) Mean Platelet Volume 5.8 FL (6.5-10.1) 5.9 FL (6.5-10.1) 6.2 FL (6.5-10.1) Neutrophils (%) (Auto) 73.2 % (45.0-75.0) 71.1 % (45.0-75.0) 79.9 % (45.0-75.0) Lymphocytes (%) (Auto) 15.5 % (20.0-45.0) 18.7 % (20.0-45.0) 13.0 % (20.0-45.0) Monocytes (%) (Auto) 9.3 % (1.0-10.0) 8.0 % (1.0-10.0) 5.4 % (1.0-10.0) Eosinophils (%) (Auto) 0.8 % (0.0-3.0) 1.2 % (0.0-3.0) 1.1 % (0.0-3.0) Basophils (%) (Auto) 1.2 % (0.0-2.0) 1.0 % (0.0-2.0) 0.6 % (0.0-2.0) Sodium Level 140 MMOL/L (136-145) 142 MMOL/L (136-145) Potassium Level 4.2 MMOL/L (3.5-5.1) 4.1 MMOL/L (3.5-5.1) Chloride Level 101 MMOL/L (98-107) 103 MMOL/L (98-107) Carbon Dioxide Level 33 MMOL/L (21-32) 33 MMOL/L (21-32) Anion Gap 6 mmol/L (5-15) 6 mmol/L (5-15) Blood Urea Nitrogen 53 mg/dL (7-18) 62 mg/dL (7-18) Creatinine 3.0 MG/DL (0.55-1.30) 3.3 MG/DL (0.55-1.30) Estimat Glomerular Filtration Rate 20.2 mL/min (>60) 18.1 mL/min (>60) Glucose Level 178 MG/DL (74-106) 171 MG/DL (74-106) Calcium Level 9.2 MG/DL (8.5-10.1) 8.9 MG/DL (8.5-10.1) Phosphorus Level 4.4 MG/DL (2.5-4.9) 4.1 MG/DL (2.5-4.9) Magnesium Level 2.7 MG/DL (1.8-2.4) 2.7 MG/DL (1.8-2.4) Total Bilirubin 0.4 MG/DL (0.2-1.0) 0.4 MG/DL (0.2-1.0) Aspartate Amino Transf (AST/SGOT) 19 U/L (15-37) 17 U/L (15-37) Alanine Aminotransferase (ALT/SGPT) 11 U/L (12-78) 9 U/L (12-78) Alkaline Phosphatase 166 U/L (46-116) 176 U/L (46-116) Total Protein 6.6 G/DL (6.4-8.2) 6.4 G/DL (6.4-8.2) Albumin 2.5 G/DL (3.4-5.0) 2.4 G/DL (3.4-5.0) Globulin 4.1 g/dL 4.0 g/dL Albumin/Globulin Ratio 0.6 (1.0-2.7) 0.6 (1.0-2.7) C-Reactive Protein, Quantitative 3.4 mg/dL (0.00-0.90) Pro-B-Type Natriuretic Peptide 12562 pg/mL (0-125) Height (Feet): 5 Height (Inches): 5.00 Weight (Pounds): 169 Objective GENERAL: Not in acute distress. HEENT: ncat PULMONARY: Decreased breath sounds. ++ bipap v nc+ CHEST: ++permacath right chest CARDIOVASCULAR: Regular rate. No S3 or S4. ABDOMEN: Soft, nontender, nondistended.++peg EXTREMITIES: 1+ edema. No cyanosis, swelling, or edema. 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 Melvin Rizzo MD Nov 29, 2019 08:08
--- NOTE | 2019-11-29 08:21 | Diagnostic Imaging Report ---
EXAM: XR Chest, 1 View CLINICAL HISTORY: SOB TECHNIQUE: Frontal view of the chest. COMPARISON: Chest radiograph October 31, 2019 FINDINGS/IMPRESSION: Dual lumen central venous catheter terminates in the right atrium and was not present on October 31, 2019. Mild vascular congestion and small bilateral pleural effusions, slightly improved when compared to October 31, 2019. No pneumothorax. Cardiomegaly. Calcified aorta.
[2019-11-29] MEDS: Metoprolol Tartrate 12.5mg TAB GT SCH ×2 (09:00→21:21)
[2019-11-29] MEDS: Eliquis 2.5mg tablet ORAL SCH ×2 (09:00→17:06)
[2019-11-29] MEDS: Docusate 100mg/10ml Liq NG SCH ×3 (09:00→17:03)
--- NOTE | 2019-11-29 09:27 | Pulmonology Progress Note ---
Reema Hanna OCCUPATIONAL ANALYST 11/29/19 0927: Subjective ROS Limited/Unobtainable: Yes Allergies: Coded Allergies: PENICILLINS (Verified Allergy, Unknown, 10/25/19) tolerated Ceftriaxone Uncoded Allergies: PENICILLIN (Allergy, Unknown, 11/23/19) Subjective on tele off BiPAP now on O2 via NC, pulse ox stable no signs of resp distress continue to decline BiPAP at night bioethics eval was done 11/25 and pending family conference 11/29 Objective Last 24 Hour Vital Signs Date Time Temp Pulse Resp B/P (MAP) Pulse Ox O2 Delivery O2 Flow Rate FiO2 11/29/19 08:00 97.5 59 20 143/50 (81) 98 11/29/19 07:40 97 Nasal Cannula 3.0 32 11/29/19 04:00 2.5 11/29/19 04:00 98.9 58 18 143/83 (103) 98 11/29/19 04:00 61 11/29/19 00:00 98.2 62 20 139/51 (80) 96 11/29/19 00:00 61 11/28/19 22:15 Nasal Cannula 3.0 11/28/19 21:12 63 131/62 11/28/19 20:30 97 Nasal Cannula 2.0 28 11/28/19 20:00 98.4 58 20 135/44 (74) 98 11/28/19 20:00 61 11/28/19 20:00 2.5 11/28/19 16:00 2.5 11/28/19 15:53 98.8 79 20 130/57 (81) 97 11/28/19 12:00 98.2 62 18 126/94 (105) 98 11/28/19 12:00 58 11/28/19 12:00 2.5 Intake and Output 11/28/19 11/29/19 19:00 07:00 Intake Total 630 ml 540 ml Output Total 3 ml Balance 630 ml 537 ml Intake Free Water 150 ml 100 ml Tube Feeding 480 ml 440 ml Output Urine Total 3 ml # Voids 2 # Bowel Movements 1 Objective General Appearance: alert , confused, [place] speaking Lines, tubes and drains: peripheral HEENT: normocephalic, atraumatic, anicteric Neck: supple Respiratory/Chest: lungs clear, no respiratory distress Cardiovascular/Chest: normal rate Abdomen: non tender, soft, feeding tube - G tube Extremities: BL foot TMA Neurologic: abnormal gait, alert, confused, responsive Musculoskeletal: atrophy - BLE Laboratory Tests 11/29/19 05:55: White Blood Count 8.8, Red Blood Count 2.85L, Hemoglobin 8.1L, Hematocrit 27.1L , Mean Corpuscular Volume 95, Mean Corpuscular Hemoglobin 28.3, Mean Corpuscular Hemoglobin Concent 29.8L, Red Cell Distribution Width 15.4H, Platelet Count 238, Mean Platelet Volume 6.2L, Neutrophils (%) (Auto) 79.9H, Lymphocytes (%) (Auto) 13.0L, Monocytes (%) (Auto) 5.4, Eosinophils (%) (Auto) 1.1, Basophils (%) (Auto) 0.6 Current Medications Medications (Trade) Dose Ordered Sig/Cammy Route PRN Reason Start Time Stop Time Status Last Admin Dose Admin Albuterol/ Ipratropium (Albuterol/ Ipratropium) 3 ml Q4H PRN HHN Shortness of Breath 11/28/19 08:30 12/03/19 08:29 Allopurinol (allopurinoL) 300 mg DAILY ORAL 11/26/19 10:30 12/24/19 10:29 11/28/19 08:45 Amlodipine Besylate (Norvasc) 5 mg Q12HR GT 11/28/19 21:00 12/24/19 10:29 11/28/19 21:12 Apixaban (Eliquis) 2.5 mg BID ORAL 11/26/19 10:30 02/22/20 10:29 11/28/19 17:24 Atorvastatin Calcium (Lipitor) 10 mg BEDTIME ORAL 11/26/19 21:00 02/22/20 20:59 11/28/19 21:12 Chlorhexidine Gluconate (Yi-Hex 2%) 1 applic DAILY@1999 TOPIC 11/26/19 20:00 02/24/20 19:59 11/28/19 21:12 Docusate Sodium (Colace) 100 mg THREE TIMES A DAY NG 11/28/19 13:00 12/28/19 12:59 11/28/19 17:24 Lansoprazole (Prevacid) 30 mg DAILY GT 11/28/19 10:45 12/28/19 10:44 11/28/19 12:53 Lorazepam (Ativan 2mg/ml 1ml) 0.5 mg Q4H PRN IV For Anxiety 11/26/19 10:30 12/01/19 10:29 Metoprolol Tartrate (Lopressor) 12.5 mg Q12HR GT 11/29/19 09:00 02/27/20 08:59 Sennosides (Senokot) 8.6 mg DAILY PRN ORAL Constipation 11/26/19 10:30 12/26/19 10:29 Assessment/Plan Assessment/Plan ASSESSMENT Prior acute hypoxemic hypercapnic respiratory failure requiring BiPAP Chronic CO2 retention Possible DAYANA Aspiration risk s/p recent PNA Dysphagia , s/p PEG , pulled out, s/p replacement of PEG 11/16 Acute kidney injury on chronic kidney disease, requiring start of HD 10/30 Anemia of chronic kidney disease Diabetes mellitus HTN PVD with hx of bilateral foot MTA Refusal of care PLAN OF CARE tele BiPAP at HS and prn , refusing again currently on O2 3 L via NC titrate O2, pulm toilet patient likely has DAYANA. recommend sleep study as OP CXR 11/28 Mild vascular congestion and small bilateral pleural effusions, slightly improved when compared to October 31, 2019. No pneumothorax.Cardiomegaly. Calcified aorta. ABG prn rapid COVID NGT, BiPAP prn and HS ethics eval if pt can refuse BiPAP ( patient with dementia, confusion), daughter wants BiPAP and unclear how he refused if was on restraints? in our opinion BiPAP should be on standing order and available in the facility when patient will be transferred need formal polysomnogram to be done as OP bioethics eval appreciated, done 11/25 . per bioethics: pt with diminished capacity and does not understand the consequences of refusing bi-pap, yet it seems inhumane to force him to endure it recommended that he should be discharged to the SNF on nasal canula with instructions not to be sent back to the acute care hospital for refusal to accept bi-pap. we are happy to have a family conference to explain the reasoning here if the family is willing to speak with us. ask SW to schedule family conference for 11/29 dc plan to SNF CM to discuss with family ( not want [facility]) completed Rx for PNA on prior admission Venous Duplex BLE 10/25 -> NGT on Eliquis aspir precautions, new BSSE pending TF via GT for now protein supplements HD as per nephro recs monitor volumes, renal paramerts, lytes s/p placement of permanent HD catheter R chest 11/07 s/p removal of temporary HD catheter by surgeon ECHO with pEF 55-60% rate control with BB, HR stable on chronic a/c , was on hold for PEG, Eliquis resumed BP management with CCB and BB, optimize as needed continue statin prior HgA1c -6.1 hold oral anti-glycemic monitor HH with goal to keep Hgb above 7 anemia w/up prior noted , heme on board on EPO GI prophayxlis supportive care case discussed and evaluated by supervising physician Jonathon Pabon MD 11/29/19 1900: Subjective Allergies: Coded Allergies: PENICILLINS (Verified Allergy, Unknown, 10/25/19) tolerated Ceftriaxone Uncoded Allergies: PENICILLIN (Allergy, Unknown, 11/23/19) Assessment/Plan Assessment/Plan Patient seen and examined with OCCUPATIONAL ANALYST. Agree with above A&P as it reflects our joint deliberations. Plan for family meeting tomorrow. Will further delineate GOC at that time. No plan for NIPPV per pt wishes. Reema Hanna NP Nov 29, 2019 09:27 Jonathon Pabon MD Nov 29, 2019 19:00
--- NOTE | 2019-11-29 09:59 | General Progress Note ---
Assessment/Plan Problem List: (1) Hypertension ICD Codes: I10 - Essential (primary) hypertension SNOMED: 55665522 (2) Diabetes mellitus ICD Codes: E11.9 - Type 2 diabetes mellitus without complications SNOMED: 41923030 (3) Cholelithiasis ICD Codes: K80.20 - Calculus of gallbladder without cholecystitis without obstruction SNOMED: 975806027 Assessment/Plan: dysphagia s/p GT placement GTF monitor for residuals Subjective ROS Limited/Unobtainable: No Allergies: Coded Allergies: PENICILLINS (Verified Allergy, Unknown, 10/25/19) tolerated Ceftriaxone Uncoded Allergies: PENICILLIN (Allergy, Unknown, 11/23/19) Objective Last 24 Hour Vital Signs Date Time Temp Pulse Resp B/P (MAP) Pulse Ox O2 Delivery O2 Flow Rate FiO2 11/29/19 08:00 97.5 59 20 143/50 (81) 98 11/29/19 07:40 97 Nasal Cannula 3.0 32 11/29/19 04:00 2.5 11/29/19 04:00 98.9 58 18 143/83 (103) 98 11/29/19 04:00 61 11/29/19 00:00 98.2 62 20 139/51 (80) 96 11/29/19 00:00 61 11/28/19 22:15 Nasal Cannula 3.0 11/28/19 21:12 63 131/62 11/28/19 20:30 97 Nasal Cannula 2.0 28 11/28/19 20:00 98.4 58 20 135/44 (74) 98 11/28/19 20:00 61 11/28/19 20:00 2.5 11/28/19 16:00 2.5 11/28/19 15:53 98.8 79 20 130/57 (81) 97 11/28/19 12:00 98.2 62 18 126/94 (105) 98 11/28/19 12:00 58 11/28/19 12:00 2.5 Intake and Output 11/28/19 11/29/19 19:00 07:00 Intake Total 630 ml 540 ml Output Total 3 ml Balance 630 ml 537 ml Intake Free Water 150 ml 100 ml Tube Feeding 480 ml 440 ml Output Urine Total 3 ml # Voids 2 # Bowel Movements 1 Laboratory Tests 11/29/19 05:55: White Blood Count 8.8, Red Blood Count 2.85L, Hemoglobin 8.1L, Hematocrit 27.1L , Mean Corpuscular Volume 95, Mean Corpuscular Hemoglobin 28.3, Mean Corpuscular Hemoglobin Concent 29.8L, Red Cell Distribution Width 15.4H, Platelet Count 238, Mean Platelet Volume 6.2L, Neutrophils (%) (Auto) 79.9H, Lymphocytes (%) (Auto) 13.0L, Monocytes (%) (Auto) 5.4, Eosinophils (%) (Auto) 1.1, Basophils (%) (Auto) 0.6 Height (Feet): 5 Height (Inches): 5.00 Weight (Pounds): 169 General Appearance: no apparent distress EENT: normal ENT inspection Neck: supple Cardiovascular: normal rate Respiratory/Chest: decreased breath sounds Abdomen: normal bowel sounds, non tender, soft Extremities: non-tender Lawrence Humphreys MD Nov 29, 2019 09:59
--- NOTE | 2019-11-29 10:16 | Nephrology Progress Note ---
Assessment/Plan Problem List: (1) Respiratory distress (2) Diabetes mellitus (3) Hypertension (4) Renal failure (ARF), acute on chronic Assessment Patient's current problem is dyspnea Most likely volume overload versus pneumonitis Other conditions: Renal failure (ARF), acute on chronic h/o Metabolic acidosis h/oElectrolyte imbalance Hyponatremia and hyperkalemia h/oAnemia h/o CHF (congestive heart failure) Plan November 28: Due for dialysis and ultrafiltration today. Labs and medications reviewed. Blood pressure is stable. November 27: BNP rising. Not much urine output. Will dialyze and ultrafiltrate tomorrow. Labs reviewed. Continue to adjust blood pressure medications. Continue per consultants. November 26: Last dialysis November 24. Status quo. Labs reviewed. Medication list reviewed. Continue to monitor renal parameters. Dialysis as needed. November 25: Patient was dialyzed yesterday. Today is due for insertion of a GT tube. Patient pulled out his previous GT tube. Labs reviewed. Electrolytes abnormalities adjusted. Continue to monitor renal parameters. Patient is off BiPAP and on nasal cannula now. I believe that upon discharge the patient requires 2-3 times a week dialysis and ultrafiltration however upon discharge the patient needs to be followed by a production welding supervisor in the facility that he goes to to assess on a regular basis the need and frequency for dialysis. November 24 : Late note entry due to system problem at the [facility] [place]. Patient due for dialysis and ultrafiltration today. Labs reviewed. Chest x-ray results not available on EMR. Last dialysis November 21. Continue pulmonary toilet. Patient remains on BiPAP. Will check labs tomorrow. Subjective ROS Limited/Unobtainable: No Constitutional: Reports: malaise Objective Objective Last 24 Hour Vital Signs Date Time Temp Pulse Resp B/P (MAP) Pulse Ox O2 Delivery O2 Flow Rate FiO2 11/29/19 08:00 97.5 59 20 143/50 (81) 98 11/29/19 07:40 97 Nasal Cannula 3.0 32 11/29/19 04:00 2.5 11/29/19 04:00 98.9 58 18 143/83 (103) 98 11/29/19 04:00 61 11/29/19 00:00 98.2 62 20 139/51 (80) 96 11/29/19 00:00 61 11/28/19 22:15 Nasal Cannula 3.0 11/28/19 21:12 63 131/62 11/28/19 20:30 97 Nasal Cannula 2.0 28 11/28/19 20:00 98.4 58 20 135/44 (74) 98 11/28/19 20:00 61 11/28/19 20:00 2.5 11/28/19 16:00 2.5 11/28/19 15:53 98.8 79 20 130/57 (81) 97 11/28/19 12:00 98.2 62 18 126/94 (105) 98 11/28/19 12:00 58 11/28/19 12:00 2.5 Intake and Output 11/28/19 11/29/19 19:00 07:00 Intake Total 630 ml 540 ml Output Total 3 ml Balance 630 ml 537 ml Intake Free Water 150 ml 100 ml Tube Feeding 480 ml 440 ml Output Urine Total 3 ml # Voids 2 # Bowel Movements 1 Current Medications Medications (Trade) Dose Ordered Sig/Cammy Route PRN Reason Start Time Stop Time Status Last Admin Dose Admin Albuterol/ Ipratropium (Albuterol/ Ipratropium) 3 ml Q4H PRN HHN Shortness of Breath 11/28/19 08:30 12/03/19 08:29 Allopurinol (allopurinoL) 300 mg DAILY ORAL 11/26/19 10:30 12/24/19 10:29 11/28/19 08:45 Amlodipine Besylate (Norvasc) 5 mg Q12HR GT 11/28/19 21:00 12/24/19 10:29 11/28/19 21:12 Apixaban (Eliquis) 2.5 mg BID ORAL 11/26/19 10:30 02/22/20 10:29 11/28/19 17:24 Atorvastatin Calcium (Lipitor) 10 mg BEDTIME ORAL 11/26/19 21:00 02/22/20 20:59 11/28/19 21:12 Chlorhexidine Gluconate (Yi-Hex 2%) 1 applic DAILY@1999 TOPIC 11/26/19 20:00 02/24/20 19:59 11/28/19 21:12 Docusate Sodium (Colace) 100 mg THREE TIMES A DAY NG 11/28/19 13:00 12/28/19 12:59 11/28/19 17:24 Lansoprazole (Prevacid) 30 mg DAILY GT 11/28/19 10:45 12/28/19 10:44 11/28/19 12:53 Lorazepam (Ativan 2mg/ml 1ml) 0.5 mg Q4H PRN IV For Anxiety 11/26/19 10:30 12/01/19 10:29 Metoprolol Tartrate (Lopressor) 12.5 mg Q12HR GT 11/29/19 09:00 02/27/20 08:59 Sennosides (Senokot) 8.6 mg DAILY PRN ORAL Constipation 11/26/19 10:30 12/26/19 10:29 Laboratory Tests 11/29/19 05:55: White Blood Count 8.8, Red Blood Count 2.85L, Hemoglobin 8.1L, Hematocrit 27.1L , Mean Corpuscular Volume 95, Mean Corpuscular Hemoglobin 28.3, Mean Corpuscular Hemoglobin Concent 29.8L, Red Cell Distribution Width 15.4H, Platelet Count 238, Mean Platelet Volume 6.2L, Neutrophils (%) (Auto) 79.9H, Lymphocytes (%) (Auto) 13.0L, Monocytes (%) (Auto) 5.4, Eosinophils (%) (Auto) 1.1, Basophils (%) (Auto) 0.6 Height (Feet): 5 Height (Inches): 5.00 Weight (Pounds): 169 General Appearance: no apparent distress Cardiovascular: normal rate Respiratory/Chest: decreased breath sounds Abdomen: soft Naveed Vanegas MD Nov 29, 2019 10:16
[2019-11-29 12:00] VITALS: BP 158/64
[2019-11-29 16:00] VITALS: BP 117/49
--- NOTE | 2019-11-29 19:42 | General Progress Note ---
Assessment/Plan Status Narrative Patient is awake alert febrile and in distress He is waiting to be accepted to a facility that will help both BiPAP and dialysis program Such facilities are few and probably will be placed at the [facility] [place] I will discuss this issue yesterday with his daughter and she is a aware of this possibility AYUSH CHANG MD Subjective Constitutional: Reports: no symptoms HEENT: Reports: no symptoms Cardiovascular: Reports: no symptoms Respiratory: Reports: no symptoms Gastrointestinal/Abdominal: Reports: abdominal pain Genitourinary: Reports: no symptoms Neurologic/Psychiatric: Reports: no symptoms Allergies: Coded Allergies: PENICILLINS (Verified Allergy, Unknown, 10/25/19) tolerated Ceftriaxone Uncoded Allergies: PENICILLIN (Allergy, Unknown, 11/23/19) Objective Last 24 Hour Vital Signs Date Time Temp Pulse Resp B/P (MAP) Pulse Ox O2 Delivery O2 Flow Rate FiO2 11/29/19 16:00 97.9 56 22 117/49 (71) 95 11/29/19 16:00 2.5 11/29/19 12:00 2.5 11/29/19 12:00 69 11/29/19 12:00 97.7 70 20 158/64 (95) 94 11/29/19 09:00 59 143/50 11/29/19 09:00 59 143/50 11/29/19 09:00 Nasal Cannula 3.0 11/29/19 08:00 97.5 59 20 143/50 (81) 98 11/29/19 08:00 2.5 11/29/19 08:00 59 11/29/19 07:40 97 Nasal Cannula 3.0 32 11/29/19 04:00 2.5 11/29/19 04:00 98.9 58 18 143/83 (103) 98 11/29/19 04:00 61 11/29/19 00:00 98.2 62 20 139/51 (80) 96 11/29/19 00:00 61 11/28/19 22:15 Nasal Cannula 3.0 11/28/19 21:12 63 131/62 11/28/19 20:30 97 Nasal Cannula 2.0 28 11/28/19 20:00 98.4 58 20 135/44 (74) 98 11/28/19 20:00 61 11/28/19 20:00 2.5 Intake and Output 11/28/19 11/29/19 19:00 07:00 Intake Total 630 ml 580 ml Output Total 3 ml Balance 630 ml 577 ml Intake Free Water 150 ml 100 ml Tube Feeding 480 ml 480 ml Output Urine Total 3 ml # Voids 2 # Bowel Movements 1 Laboratory Tests 11/29/19 05:55: White Blood Count 8.8, Red Blood Count 2.85L, Hemoglobin 8.1L, Hematocrit 27.1L , Mean Corpuscular Volume 95, Mean Corpuscular Hemoglobin 28.3, Mean Corpuscular Hemoglobin Concent 29.8L, Red Cell Distribution Width 15.4H, Platelet Count 238, Mean Platelet Volume 6.2L, Neutrophils (%) (Auto) 79.9H, Lymphocytes (%) (Auto) 13.0L, Monocytes (%) (Auto) 5.4, Eosinophils (%) (Auto) 1.1, Basophils (%) (Auto) 0.6 Height (Feet): 5 Height (Inches): 5.00 Weight (Pounds): 169 General Appearance: alert, confused EENT: normal ENT inspection Neck: supple Cardiovascular: normal rate, regular rhythm, no gallop/murmur, no JVD Respiratory/Chest: no respiratory distress Abdomen: non tender, soft, no organomegaly, no mass Extremities: non-tender Ayush Chang MD Nov 29, 2019 19:42
--- NOTE | 2019-11-29 19:52 | CDS Physician Query ---
Clarification is required for compliance, coding accuracy, and to reflect severity of illness for this patient Dear Dr. Garry Bella MD Date: 11/29/2019 CDI/CDS Name: Humza Burroughs Clinical Documentation Statement: "43-year-old lady who was generally healthy. She apparently was treated for UTI about 2 weeks ago with Cipro, found to be anemic as well, completed her Cipro. She presents with a low-grade fever and left-sided abdominal pain, questionable flank pain. No hematuria but somewhat dark urine. " FINAL DIAGNOSES: Diffuse lymphadenopathy with concern for lymphoma or other possible malignancy. Fevers, likely secondary to the above. Insignificant urine colonies suggesting this is not urinary tract infection, Anemia, likely secondary to the above. Clinical Finding Show: BMI: 28.7 kg/m2 LAB (11/23 ) : Chem: Albumin 3.1 [3.4-5.0], Calcium 10.0 [ 8.5-10.1], Lymphocytes ; 608 Please select the most appropriate option: [] Protein/Calorie Malnutrition [] Mild [] Moderate [] Severe [] Other [] Unable to determine [] Not Applicable Present on Admission: [] Yes [] No [] Clinically Undetermined Physician signature Date Please also document in your Progress Notes and/or Discharge Summary and indicate if the condition was present on admission. MTDD
[2019-11-29 20:00] VITALS: BP 133/42
--- NOTE | 2019-11-29 20:50 | CDS Physician Query ---
PLEASE COMPLETE THE DOCUMENT BEFORE SIGNING Dear Ayush Chang MD. Date: 11/29/2019 CDI/CDS Name: Humza Burroughs Clinical Documentation Statement: "79-year-old patient because of removal of G-tube and lack of machinery support. " [ H& P Ayush Chang M.D.. 11/25/19] IMPRESSION AND PLAN: The patient with gastrostomy tube in this case. The patient will need a software licensing specialist for his BiPAP and a lens edge grinder machine to follow his dialysis." Assessment: Patient's current problem is dyspnea. Most likely volume overload versus pneumonitis Renal failure (ARF), acute on chronic [ Nephro PN Naveed Vanegas MD Nov 25, 2019 19:33] Clinical Finding Show: 11/23 11/24 11/25 (09:05) (02:50) (03:25) Creatinine 3.9 4.2 2.4 BUN 62 72 33 GFR 14.9 13.7 26.1 Medication: Sodium Chloride IV (11/25) Please Clarify the etiology/diagnosis associated with this findings: [] CKD, stage [] Acute Renal Failure (unspecified) [] Acute Renal Failure w/ Tubular Necrosis [] Acute Renal Failure w/ Cortical Necrosis [] Acute Renal Failure w/ Medullary Necrosis [] ESRD [] Findings are insignificant [] Other: Present on Admission: [] Yes [] No [] Clinically Undetermined Please also document in your Progress Notes and/or Discharge Summary and indicate if the condition was present on admission. MTDD
--- NOTE | 2019-11-29 21:08 | CDS Physician Query ---
Clarification is required for compliance, coding accuracy, and to reflect severity of illness for this patient Dear Ayush Chang MD. Date: 11/29/2019 CDI/CDS Name: Humza Burroughs Clinical Documentation Statement: "79-year-old patient because of removal of G-tube and lack of machinery support. " [ H& P Ayush Chang M.D.. 11/25/19] IMPRESSION AND PLAN: The patient with gastrostomy tube in this case. The patient will need a entry specialist for his BiPAP and a experience design director to follow his dialysis." ASSESSMENT: Prior acute hypoxemic hypercapnic respiratory failure requiring BiPAP Chronic CO2 retention, Possible DAYANA , Aspiration risk ,HTN s/p recent PNA, Dysphagia , s/p PEG , Diabetes mellitus Acute kidney injury on chronic kidney disease, requiring start of HD 10/30 Anemia of chronic kidney disease Refusal of care [ Pulmo Jonathon Viera MD Nov 26, 2019 12:47] Assessment: Patient's current problem is dyspnea Most likely volume overload versus pneumonitis [ Naveed Urias MD Nov 26, 2019 A diagnosis of possible "Pneumonitis" with "Aspiration risk" were documented at the patient is on Progress Notes mentioned above. Please specify the underlying etiology of mentioned above condition: [] Gram +Positive Pneumonia [] Gram -Negative Pneumonia [] Pneumonia due to Aspiration [] Pneumonia unspecified [] Not Applicable [] Other organism(s). Please specify: Present on Admission: [] Yes [] No [] Clinically Undetermined Physician signature Date Please also document in your Progress Notes and/or Discharge Summary and indicate if the condition was present on admission. MTDD
[2019-11-29] MEDS: Dyna-Hex 2% Top Sol 2oz TOPIC SCH (21:18)
[2019-11-30] VITALS: BP 138/52
[2019-11-30 04:00] VITALS: BP 133/48
[2019-11-30 06:42] LABS: BASOPHILS % (AUTO) 0.5 % (0.0-2.0); EOSINOPHILS % (AUTO) 1.3 % (0.0-3.0); HEMATOCRIT 32.4 % (42.0-52.0); HEMOGLOBIN 9.5 G/DL (14.2-18.0); LYMPHOCYTES % (AUTO) 14.2 % (20.0-45.0); MEAN CORPUSCULAR VOLUME 95 FL (80-99); MONOCYTES % (AUTO) 4.1 % (1.0-10.0); NEUTROPHILS % (AUTO) 79.9 % (45.0-75.0); PLATELET COUNT 224 K/UL (150-450); RED BLOOD COUNT 3.41 M/UL (4.70-6.10); RED CELL DISTRIBUTION WIDTH 15.6 % (11.6-14.8); WHITE BLOOD COUNT 8.5 K/UL (4.8-10.8)
--- NOTE | 2019-11-30 07:19 | Hematology/Onc Progress Note ---
Assessment/Plan Assessment/Plan ASSESSMENT AND RECOMMENDATIONS: # Anemia of chronic disease due to underlying chronic medical issues, multifactorial --> Anemia w/u has been reviewed. --> no evidence of hemolysis is noted, peripheral smear has been reviewed --> hgb goal is >7, transfuse as needed --> currently remains stable, occult blood negative --> hgb 8.4->8.6->8.3->8->8.2->9.2-->9.2->8.9-->8.1-->8.7>9.4-->8.7-->8->7.8-> 7.5-->7.4-->7.5-->8.1-->8-->8.1-->9.5 --> some blood loss due to hematuria after inflated reyes pulled 8/6 am --> EPOGEN Started # Thrombocytopenia is likely due to infection --> plt trend 180-->149-->274 --> on abx as needed --> hep and hiv neg #. Leukocytosis with underlying infectionv stress reaction HISTORY --> per id and better --> for infection, ABX ctx/vanc-->off --> wbc 10-->5.9 # Acute kidney injury r/o potential reversible component --> reviewed meds, those that are renally cleared removed --> as per renal recs, appreciated --> cr 3.5-->4.2-->3.4->3.3 --> Hd started and dw renal # Hypertension, essential --> sbp goal is <140, consider anti-htn as needed --> currently started on hyralazine 25mg po q6h prn sbp >140 # CHF - hx of CHf --> diuresis with lasix as needed --> cardiology recs appreciated prior adm #. Bilateral lower extremity amputee, metatarsal several years ago #. Atrial fibrillation --> as per cards recs #. Dysphagia s/p peg --> peg pulled out and now with gtube 11/25 #. Hyperkalemia -- kayxelate as needed #. Agitation requires restraints #. Dvt ppx scds --> xarelto=> off-->eliquis The time the note was entered does not necessarily correspond to the time the patient was seen. GREATLY APPRECIATE CONSULTATION. Subjective Allergies: Coded Allergies: PENICILLINS (Verified Allergy, Unknown, 10/25/19) tolerated Ceftriaxone Uncoded Allergies: PENICILLIN (Allergy, Unknown, 11/23/19) All Systems: reviewed and negative except above Subjective /2 came back from new [facility] due to lack of bipap capability, hgb 7.5 11/24 labs reviewed, remains sob, with a hgb 8.1, no bleeding, jag rn, hold off prbc 11/25 labs are noted, for egd and peg in the am, jag rn, on nc 11/27 getting 3l nc overnight, has been refusing bipap unfortunately, hgb stable 11/28 labs noted, with gtube feeds, again this am refusing bipap 11/29 is on 2l nc, with gtube feeds, hgb 9.5, no bleeding Objective Objective Current Medications Medications (Trade) Dose Ordered Sig/Cammy Route PRN Reason Start Time Stop Time Status Last Admin Dose Admin Albuterol/ Ipratropium (Albuterol/ Ipratropium) 3 ml Q4H PRN HHN Shortness of Breath 11/28/19 08:30 12/03/19 08:29 Allopurinol (allopurinoL) 300 mg DAILY ORAL 11/26/19 10:30 12/24/19 10:29 11/28/19 08:45 Amlodipine Besylate (Norvasc) 5 mg Q12HR GT 11/28/19 21:00 12/24/19 10:29 11/29/19 21:21 Apixaban (Eliquis) 2.5 mg BID ORAL 11/26/19 10:30 02/22/20 10:29 11/29/19 17:06 Atorvastatin Calcium (Lipitor) 10 mg BEDTIME ORAL 11/26/19 21:00 02/22/20 20:59 11/29/19 21:18 Chlorhexidine Gluconate (Yi-Hex 2%) 1 applic DAILY@1999 TOPIC 11/26/19 20:00 02/24/20 19:59 11/29/19 21:18 Docusate Sodium (Colace) 100 mg THREE TIMES A DAY NG 11/28/19 13:00 12/28/19 12:59 11/28/19 17:24 Lansoprazole (Prevacid) 30 mg DAILY GT 11/28/19 10:45 12/28/19 10:44 11/28/19 12:53 Lorazepam (Ativan 2mg/ml 1ml) 0.5 mg Q4H PRN IV For Anxiety 11/26/19 10:30 12/01/19 10:29 Metoprolol Tartrate (Lopressor) 12.5 mg Q12HR GT 11/29/19 09:00 02/27/20 08:59 11/29/19 21:21 Sennosides (Senokot) 8.6 mg DAILY PRN ORAL Constipation 11/26/19 10:30 12/26/19 10:29 Last 24 Hour Vital Signs Date Time Temp Pulse Resp B/P (MAP) Pulse Ox O2 Delivery O2 Flow Rate FiO2 11/30/19 04:00 2.5 11/30/19 04:00 97.9 75 18 133/48 (76) 95 11/30/19 04:00 74 11/30/19 00:00 2.5 11/30/19 00:00 76 11/30/19 00:00 97.3 92 18 138/52 (80) 96 11/29/19 21:21 80 133/42 11/29/19 21:21 80 133/42 11/29/19 21:00 Nasal Cannula 3.0 11/29/19 20:00 97.9 80 18 133/42 (72) 95 11/29/19 20:00 75 11/29/19 20:00 2.5 11/29/19 19:59 98 Nasal Cannula 3.0 32 11/29/19 16:00 97.9 56 22 117/49 (71) 95 11/29/19 16:00 57 11/29/19 16:00 2.5 11/29/19 12:00 2.5 11/29/19 12:00 69 11/29/19 12:00 97.7 70 20 158/64 (95) 94 11/29/19 09:00 59 143/50 11/29/19 09:00 59 143/50 11/29/19 09:00 Nasal Cannula 3.0 11/29/19 08:00 97.5 59 20 143/50 (81) 98 11/29/19 08:00 2.5 11/29/19 08:00 59 11/29/19 07:40 97 Nasal Cannula 3.0 32 11/29/19 04:00 2.5 11/29/19 04:00 98.9 58 18 143/83 (103) 98 11/29/19 04:00 61 11/29/19 00:00 98.2 62 20 139/51 (80) 96 11/29/19 00:00 61 11/28/19 22:15 Nasal Cannula 3.0 11/28/19 21:12 63 131/62 11/28/19 20:30 97 Nasal Cannula 2.0 28 11/28/19 20:00 98.4 58 20 135/44 (74) 98 11/28/19 20:00 61 11/28/19 20:00 2.5 11/28/19 16:00 2.5 11/28/19 15:53 98.8 79 20 130/57 (81) 97 11/28/19 12:00 98.2 62 18 126/94 (105) 98 11/28/19 12:00 58 11/28/19 12:00 2.5 11/28/19 09:00 Nasal Cannula 3.0 11/28/19 08:56 98 Nasal Cannula 2.0 28 11/28/19 08:46 64 158/43 11/28/19 08:46 64 158/43 11/28/19 08:00 98.2 64 20 158/43 (81) 96 11/28/19 08:00 61 11/28/19 08:00 3.0 Intake and Output 11/29/19 11/30/19 19:00 07:00 Intake Total 530 ml 70 ml Output Total 3000 ml Balance -2470 ml 70 ml Intake Free Water 90 ml 30 ml Tube Feeding 440 ml 40 ml Hemodialysis UF 3000 ml # Voids 2 4 # Bowel Movements 1 Labs Test 11/27/19 07:50 11/28/19 06:55 11/29/19 05:55 11/30/19 05:50 White Blood Count 6.8 K/UL (4.8-10.8) 6.4 K/UL (4.8-10.8) 8.8 K/UL (4.8-10.8) 8.5 K/UL (4.8-10.8) Red Blood Count 3.25 M/UL (4.70-6.10) 3.01 M/UL (4.70-6.10) 2.85 M/UL (4.70-6.10) 3.41 M/UL (4.70-6.10) Hemoglobin 9.1 G/DL (14.2-18.0) 8.2 G/DL (14.2-18.0) 8.1 G/DL (14.2-18.0) 9.5 G/DL (14.2-18.0) Hematocrit 30.6 % (42.0-52.0) 28.6 % (42.0-52.0) 27.1 % (42.0-52.0) 32.4 % (42.0-52.0) Mean Corpuscular Volume 94 FL (80-99) 95 FL (80-99) 95 FL (80-99) 95 FL (80- 99) Mean Corpuscular Hemoglobin 28.1 PG (27.0-31.0) 27.2 PG (27.0-31.0) 28.3 PG (27.0-31.0) 27.9 PG (27.0-31.0) Mean Corpuscular Hemoglobin Concent 29.8 G/DL (32.0-36.0) 28.7 G/DL (32.0-36.0) 29.8 G/DL (32.0-36.0) 29.4 G/DL (32.0-36.0) Red Cell Distribution Width 15.2 % (11.6-14.8) 15.4 % (11.6-14.8) 15.4 % (11.6-14.8) 15.6 % (11.6-14.8) Platelet Count 304 K/UL (150-450) 245 K/UL (150-450) 238 K/UL (150-450) 224 K/UL (150-450) Mean Platelet Volume 5.8 FL (6.5-10.1) 5.9 FL (6.5-10.1) 6.2 FL (6.5-10.1) 6.2 FL (6.5-10.1) Neutrophils (%) (Auto) 73.2 % (45.0-75.0) 71.1 % (45.0-75.0) 79.9 % (45.0-75.0) 79.9 % (45.0-75.0) Lymphocytes (%) (Auto) 15.5 % (20.0-45.0) 18.7 % (20.0-45.0) 13.0 % (20.0-45.0) 14.2 % (20.0-45.0) Monocytes (%) (Auto) 9.3 % (1.0-10.0) 8.0 % (1.0-10.0) 5.4 % (1.0-10.0) 4.1 % (1.0-10.0) Eosinophils (%) (Auto) 0.8 % (0.0-3.0) 1.2 % (0.0-3.0) 1.1 % (0.0-3.0) 1.3 % (0.0-3.0) Basophils (%) (Auto) 1.2 % (0.0-2.0) 1.0 % (0.0-2.0) 0.6 % (0.0-2.0) 0.5 % (0.0-2.0) Sodium Level 140 MMOL/L (136-145) 142 MMOL/L (136-145) Potassium Level 4.2 MMOL/L (3.5-5.1) 4.1 MMOL/L (3.5-5.1) Chloride Level 101 MMOL/L (98-107) 103 MMOL/L (98-107) Carbon Dioxide Level 33 MMOL/L (21-32) 33 MMOL/L (21-32) Anion Gap 6 mmol/L (5-15) 6 mmol/L (5-15) Blood Urea Nitrogen 53 mg/dL (7-18) 62 mg/dL (7-18) Creatinine 3.0 MG/DL (0.55-1.30) 3.3 MG/DL (0.55-1.30) Estimat Glomerular Filtration Rate 20.2 mL/min (>60) 18.1 mL/min (>60) Glucose Level 178 MG/DL (74-106) 171 MG/DL (74-106) Calcium Level 9.2 MG/DL (8.5-10.1) 8.9 MG/DL (8.5-10.1) Phosphorus Level 4.4 MG/DL (2.5-4.9) 4.1 MG/DL (2.5-4.9) Magnesium Level 2.7 MG/DL (1.8-2.4) 2.7 MG/DL (1.8-2.4) Total Bilirubin 0.4 MG/DL (0.2-1.0) 0.4 MG/DL (0.2-1.0) Aspartate Amino Transf (AST/SGOT) 19 U/L (15-37) 17 U/L (15-37) Alanine Aminotransferase (ALT/SGPT) 11 U/L (12-78) 9 U/L (12-78) Alkaline Phosphatase 166 U/L (46-116) 176 U/L (46-116) Total Protein 6.6 G/DL (6.4-8.2) 6.4 G/DL (6.4-8.2) Albumin 2.5 G/DL (3.4-5.0) 2.4 G/DL (3.4-5.0) Globulin 4.1 g/dL 4.0 g/dL Albumin/Globulin Ratio 0.6 (1.0-2.7) 0.6 (1.0-2.7) C-Reactive Protein, Quantitative 3.4 mg/dL (0.00-0.90) Pro-B-Type Natriuretic Peptide 98629 pg/mL (0-125) Height (Feet): 5 Height (Inches): 5.00 Weight (Pounds): 169 Objective GENERAL: Not in acute distress. HEENT: ncat PULMONARY: Decreased breath sounds. ++ bipap v nc+ CHEST: ++permacath right chest CARDIOVASCULAR: Regular rate. No S3 or S4. ABDOMEN: Soft, nontender, nondistended.++peg EXTREMITIES: 1+ edema. No cyanosis, swelling, or edema. 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 Melvin Rizzo MD Nov 30, 2019 07:18
[2019-11-30 08:00] VITALS: BP 152/40
[2019-11-30] MEDS: Docusate 100mg/10ml Liq NG SCH ×3 (08:14→18:06)
[2019-11-30] MEDS: Metoprolol Tartrate 12.5mg TAB GT SCH ×2 (08:16→21:40)
[2019-11-30] MEDS: Eliquis 2.5mg tablet ORAL SCH ×2 (08:16→18:06)
--- NOTE | 2019-11-30 09:39 | General Progress Note ---
Assessment/Plan Problem List: (1) Hypertension ICD Codes: I10 - Essential (primary) hypertension SNOMED: 15193260 (2) Diabetes mellitus ICD Codes: E11.9 - Type 2 diabetes mellitus without complications SNOMED: 89039996 (3) Cholelithiasis ICD Codes: K80.20 - Calculus of gallbladder without cholecystitis without obstruction SNOMED: 707226025 Assessment/Plan: dysphagia s/p GT placement GTF monitor for residuals Subjective ROS Limited/Unobtainable: No Allergies: Coded Allergies: PENICILLINS (Verified Allergy, Unknown, 10/25/19) tolerated Ceftriaxone Uncoded Allergies: PENICILLIN (Allergy, Unknown, 11/23/19) Objective Last 24 Hour Vital Signs Date Time Temp Pulse Resp B/P (MAP) Pulse Ox O2 Delivery O2 Flow Rate FiO2 11/30/19 08:16 58 152/40 11/30/19 08:15 58 152/40 11/30/19 08:00 97.5 58 20 152/40 (77) 100 11/30/19 04:00 2.5 11/30/19 04:00 97.9 75 18 133/48 (76) 95 11/30/19 04:00 74 11/30/19 00:00 2.5 11/30/19 00:00 76 11/30/19 00:00 97.3 92 18 138/52 (80) 96 11/29/19 21:21 80 133/42 11/29/19 21:21 80 133/42 11/29/19 21:00 Nasal Cannula 3.0 11/29/19 20:00 97.9 80 18 133/42 (72) 95 11/29/19 20:00 75 11/29/19 20:00 2.5 11/29/19 19:59 98 Nasal Cannula 3.0 32 11/29/19 16:00 97.9 56 22 117/49 (71) 95 11/29/19 16:00 57 11/29/19 16:00 2.5 11/29/19 12:00 2.5 11/29/19 12:00 69 11/29/19 12:00 97.7 70 20 158/64 (95) 94 Intake and Output 11/29/19 11/30/19 19:00 07:00 Intake Total 530 ml 70 ml Output Total 3000 ml Balance -2470 ml 70 ml Intake Free Water 90 ml 30 ml Tube Feeding 440 ml 40 ml Hemodialysis UF 3000 ml # Voids 2 4 # Bowel Movements 1 Laboratory Tests 11/30/19 05:50: White Blood Count 8.5, Red Blood Count 3.41L, Hemoglobin 9.5L, Hematocrit 32.4L , Mean Corpuscular Volume 95, Mean Corpuscular Hemoglobin 27.9, Mean Corpuscular Hemoglobin Concent 29.4L, Red Cell Distribution Width 15.6H, Platelet Count 224, Mean Platelet Volume 6.2L, Neutrophils (%) (Auto) 79.9H, Lymphocytes (%) (Auto) 14.2L, Monocytes (%) (Auto) 4.1, Eosinophils (%) (Auto) 1.3, Basophils (%) (Auto) 0.5 Height (Feet): 5 Height (Inches): 5.00 Weight (Pounds): 169 General Appearance: no apparent distress EENT: normal ENT inspection Neck: supple Cardiovascular: normal rate Respiratory/Chest: decreased breath sounds Abdomen: normal bowel sounds, non tender, soft Extremities: non-tender Lawrence Humphreys MD Nov 30, 2019 09:39
--- NOTE | 2019-11-30 10:19 | Pulmonology Progress Note ---
Reema Hanna DIRECTOR OF SPECIAL EVENTS 11/30/19 1019: Subjective ROS Limited/Unobtainable: No Allergies: Coded Allergies: PENICILLINS (Verified Allergy, Unknown, 10/25/19) tolerated Ceftriaxone Uncoded Allergies: PENICILLIN (Allergy, Unknown, 11/23/19) All Systems: reviewed and negative except above Subjective on tele off BiPAP now on O2 via NC, pulse ox stable no signs of resp distress continue to decline BiPAP at night bioethics eval was done 11/25 and was pending family conference 11/29 SW discussed with daughter bioethics recs in search of new SNF currently Objective Last 24 Hour Vital Signs Date Time Temp Pulse Resp B/P (MAP) Pulse Ox O2 Delivery O2 Flow Rate FiO2 11/30/19 08:16 58 152/40 11/30/19 08:15 58 152/40 11/30/19 08:00 97.5 58 20 152/40 (77) 100 11/30/19 04:00 2.5 11/30/19 04:00 97.9 75 18 133/48 (76) 95 11/30/19 04:00 74 11/30/19 00:00 2.5 11/30/19 00:00 76 11/30/19 00:00 97.3 92 18 138/52 (80) 96 11/29/19 21:21 80 133/42 11/29/19 21:21 80 133/42 11/29/19 21:00 Nasal Cannula 3.0 11/29/19 20:00 97.9 80 18 133/42 (72) 95 11/29/19 20:00 75 11/29/19 20:00 2.5 11/29/19 19:59 98 Nasal Cannula 3.0 32 11/29/19 16:00 97.9 56 22 117/49 (71) 95 11/29/19 16:00 57 11/29/19 16:00 2.5 11/29/19 12:00 2.5 11/29/19 12:00 69 11/29/19 12:00 97.7 70 20 158/64 (95) 94 Intake and Output 11/29/19 11/30/19 19:00 07:00 Intake Total 530 ml 70 ml Output Total 3000 ml Balance -2470 ml 70 ml Intake Free Water 90 ml 30 ml Tube Feeding 440 ml 40 ml Hemodialysis UF 3000 ml # Voids 2 4 # Bowel Movements 1 Objective General Appearance: alert , confused, [place]isian speaking Lines, tubes and drains: peripheral HEENT: normocephalic, atraumatic, anicteric Neck: supple Respiratory/Chest: lungs clear, no respiratory distress Cardiovascular/Chest: normal rate Abdomen: non tender, soft, feeding tube - G tube Extremities: BL foot TMA Neurologic: abnormal gait, alert, confused, responsive Musculoskeletal: atrophy - BLE Laboratory Tests 11/30/19 05:50: White Blood Count 8.5, Red Blood Count 3.41L, Hemoglobin 9.5L, Hematocrit 32.4L , Mean Corpuscular Volume 95, Mean Corpuscular Hemoglobin 27.9, Mean Corpuscular Hemoglobin Concent 29.4L, Red Cell Distribution Width 15.6H, Platelet Count 224, Mean Platelet Volume 6.2L, Neutrophils (%) (Auto) 79.9H, Lymphocytes (%) (Auto) 14.2L, Monocytes (%) (Auto) 4.1, Eosinophils (%) (Auto) 1.3, Basophils (%) (Auto) 0.5 Current Medications Medications (Trade) Dose Ordered Sig/Cammy Route PRN Reason Start Time Stop Time Status Last Admin Dose Admin Albuterol/ Ipratropium (Albuterol/ Ipratropium) 3 ml Q4H PRN HHN Shortness of Breath 11/28/19 08:30 12/03/19 08:29 Allopurinol (allopurinoL) 300 mg DAILY ORAL 11/26/19 10:30 12/24/19 10:29 11/30/19 08:14 Amlodipine Besylate (Norvasc) 5 mg Q12HR GT 11/28/19 21:00 12/24/19 10:29 11/30/19 08:15 Apixaban (Eliquis) 2.5 mg BID ORAL 11/26/19 10:30 02/22/20 10:29 11/30/19 08:16 Atorvastatin Calcium (Lipitor) 10 mg BEDTIME ORAL 11/26/19 21:00 02/22/20 20:59 11/29/19 21:18 Chlorhexidine Gluconate (Yi-Hex 2%) 1 applic DAILY@1999 TOPIC 11/26/19 20:00 02/24/20 19:59 11/29/19 21:18 Docusate Sodium (Colace) 100 mg THREE TIMES A DAY NG 11/28/19 13:00 12/28/19 12:59 11/30/19 08:14 Lansoprazole (Prevacid) 30 mg DAILY GT 11/28/19 10:45 12/28/19 10:44 11/30/19 08:14 Lorazepam (Ativan 2mg/ml 1ml) 0.5 mg Q4H PRN IV For Anxiety 11/26/19 10:30 12/01/19 10:29 Metoprolol Tartrate (Lopressor) 12.5 mg Q12HR GT 11/29/19 09:00 02/27/20 08:59 11/29/19 21:21 Sennosides (Senokot) 8.6 mg DAILY PRN ORAL Constipation 11/26/19 10:30 12/26/19 10:29 Assessment/Plan Assessment/Plan ASSESSMENT Prior acute hypoxemic hypercapnic respiratory failure requiring BiPAP Chronic CO2 retention Possible DAYANA Aspiration risk s/p recent PNA Dysphagia , s/p PEG , pulled out, s/p replacement of PEG 11/16 Acute kidney injury on chronic kidney disease, requiring start of HD 10/30 Anemia of chronic kidney disease Diabetes mellitus HTN PVD with hx of bilateral foot MTA Refusal of care PLAN OF CARE tele BiPAP at HS and prn , refusing again currently on O2 3 L via NC titrate O2, pulm toilet patient likely has DAYANA. recommend sleep study as OP CXR 11/28 Mild vascular congestion and small bilateral pleural effusions, slightly improved when compared to October 31, 2019. No pneumothorax.Cardiomegaly. Calcified aorta. ABG prn rapid COVID NGT, BiPAP prn and HS ethics eval if pt can refuse BiPAP ( patient with dementia, confusion), daughter wants BiPAP and unclear how he refused if was on restraints? in our opinion BiPAP should be on standing order and available in the facility when patient will be transferred need formal polysomnogram to be done as OP bioethics eval appreciated, done 11/25 . per bioethics: pt with diminished capacity and does not understand the consequences of refusing bi-pap, yet it seems inhumane to force him to endure it recommended that he should be discharged to the SNF on nasal canula with instructions not to be sent back to the acute care hospital for refusal to accept bi-pap. we are happy to have a family conference to explain the reasoning here if the family is willing to speak with us. ask SW to schedule family conference for 11/29 SW spoke with pt's daughter and conveyed bioethics message need to clarify GOC and code status dc plan to SNF CM to discuss with family ( not want [facility]) completed Rx for PNA on prior admission Venous Duplex BLE 10/25 -> NGT on Eliquis aspir precautions, new BSSE pending TF via GT for now protein supplements HD as per nephro recs monitor volumes, renal paramerts, lytes s/p placement of permanent HD catheter R chest 11/07 s/p removal of temporary HD catheter by surgeon ECHO with pEF 55-60% rate control with BB, HR stable on chronic a/c , was on hold for PEG, Eliquis resumed BP management with CCB and BB, optimize as needed continue statin prior HgA1c -6.1 hold oral anti-glycemic monitor HH with goal to keep Hgb above 7 anemia w/up prior noted , heme on board on EPO GI prophayxlis supportive care case discussed and evaluated by supervising physician Jonathon Pabon MD 11/30/19 1304: Subjective Allergies: Coded Allergies: PENICILLINS (Verified Allergy, Unknown, 10/25/19) tolerated Ceftriaxone Uncoded Allergies: PENICILLIN (Allergy, Unknown, 11/23/19) Assessment/Plan Assessment/Plan Patient seen and examined with DIRECTOR OF SPECIAL EVENTS. Agree with above A&P as it reflects our joint deliberations. Reema Hanna NP Nov 30, 2019 10:19 Jonathon Pabon MD Nov 30, 2019 13:04
--- NOTE | 2019-11-30 10:42 | Nephrology Progress Note ---
Assessment/Plan Problem List: (1) Respiratory distress (2) Diabetes mellitus (3) Hypertension (4) Renal failure (ARF), acute on chronic Assessment Patient's current problem is dyspnea Most likely volume overload versus pneumonitis Other conditions: Renal failure (ARF), acute on chronic h/o Metabolic acidosis h/oElectrolyte imbalance Hyponatremia and hyperkalemia h/oAnemia h/o CHF (congestive heart failure) Plan November 29: Dialyzed yesterday. Status quo. Will check chemistry panel tomorrow. Dialysis as needed. Continue per PMD and consultants. November 28: Due for dialysis and ultrafiltration today. Labs and medications reviewed. Blood pressure is stable. November 27: BNP rising. Not much urine output. Will dialyze and ultrafiltrate tomorrow. Labs reviewed. Continue to adjust blood pressure medications. Continue per consultants. November 26: Last dialysis November 24. Status quo. Labs reviewed. Medication list reviewed. Continue to monitor renal parameters. Dialysis as needed. November 25: Patient was dialyzed yesterday. Today is due for insertion of a GT tube. Patient pulled out his previous GT tube. Labs reviewed. Electrolytes abnormalities adjusted. Continue to monitor renal parameters. Patient is off BiPAP and on nasal cannula now. I believe that upon discharge the patient requires 2-3 times a week dialysis and ultrafiltration however upon discharge the patient needs to be followed by a bridge saw operator in the facility that he goes to to assess on a regular basis the need and frequency for dialysis. November 24 : Late note entry due to [place] [facility] [place] Patient due for dialysis and ultrafiltration today. Labs reviewed. Chest x-ray results not available on EMR. Last dialysis November 21. Continue pulmonary toilet. Patient remains on BiPAP. Will check labs tomorrow. Subjective ROS Limited/Unobtainable: No Constitutional: Reports: malaise, weakness Objective Objective Last 24 Hour Vital Signs Date Time Temp Pulse Resp B/P (MAP) Pulse Ox O2 Delivery O2 Flow Rate FiO2 11/30/19 09:00 Nasal Cannula 3.0 11/30/19 08:16 58 152/40 11/30/19 08:15 58 152/40 11/30/19 08:00 2.5 11/30/19 08:00 97.5 58 20 152/40 (77) 100 11/30/19 08:00 66 11/30/19 04:00 2.5 11/30/19 04:00 97.9 75 18 133/48 (76) 95 11/30/19 04:00 74 11/30/19 00:00 2.5 11/30/19 00:00 76 11/30/19 00:00 97.3 92 18 138/52 (80) 96 11/29/19 21:21 80 133/42 11/29/19 21:21 80 133/42 11/29/19 21:00 Nasal Cannula 3.0 11/29/19 20:00 97.9 80 18 133/42 (72) 95 11/29/19 20:00 75 11/29/19 20:00 2.5 11/29/19 19:59 98 Nasal Cannula 3.0 32 11/29/19 16:00 97.9 56 22 117/49 (71) 95 11/29/19 16:00 57 11/29/19 16:00 2.5 11/29/19 12:00 2.5 11/29/19 12:00 69 11/29/19 12:00 97.7 70 20 158/64 (95) 94 Intake and Output 11/29/19 11/30/19 19:00 07:00 Intake Total 530 ml 70 ml Output Total 3000 ml Balance -2470 ml 70 ml Intake Free Water 90 ml 30 ml Tube Feeding 440 ml 40 ml Hemodialysis UF 3000 ml # Voids 2 4 # Bowel Movements 1 Laboratory Tests 11/30/19 05:50: White Blood Count 8.5, Red Blood Count 3.41L, Hemoglobin 9.5L, Hematocrit 32.4L , Mean Corpuscular Volume 95, Mean Corpuscular Hemoglobin 27.9, Mean Corpuscular Hemoglobin Concent 29.4L, Red Cell Distribution Width 15.6H, Platelet Count 224, Mean Platelet Volume 6.2L, Neutrophils (%) (Auto) 79.9H, Lymphocytes (%) (Auto) 14.2L, Monocytes (%) (Auto) 4.1, Eosinophils (%) (Auto) 1.3, Basophils (%) (Auto) 0.5 Height (Feet): 5 Height (Inches): 5.00 Weight (Pounds): 169 General Appearance: no apparent distress, lethargic Cardiovascular: normal rate Respiratory/Chest: decreased breath sounds Abdomen: distended Fouladian,Naveed MD Nov 30, 2019 10:42
[2019-11-30 12:00] VITALS: BP 132/52
[2019-11-30 16:00] VITALS: BP 117/45
--- NOTE | 2019-11-30 19:43 | General Progress Note ---
Assessment/Plan Status Narrative Patient is awake alert febrile hemodynamically stable. Ratio of his BiPAP is been resolved as patient will not seek care facilities at hospital BiPAP. He does however will need dialysis facilities that offer dialysis without respirator can be found easier than facility of subacute respirator with dialysis. We discussed in details with his daughter does not want her father return [place] [facility] repeat laboratory test will be done in a.m. AYUSH CHANG MD Subjective Constitutional: Reports: other - Patient is upset being misunderstood and inability to communicate with his language.we will rule out the stent Cardiovascular: Reports: other - No chest pain shortness of breath palpitations dizziness Respiratory: Reports: other - No cough wheezing or expectoration when asked about shortness of breath he had the day before yesterday no Gastrointestinal/Abdominal: Reports: no symptoms Genitourinary: Reports: no symptoms Neurologic/Psychiatric: Reports: depressed Allergies: Coded Allergies: PENICILLINS (Verified Allergy, Unknown, 10/25/19) tolerated Ceftriaxone Uncoded Allergies: PENICILLIN (Allergy, Unknown, 11/23/19) Objective Last 24 Hour Vital Signs Date Time Temp Pulse Resp B/P (MAP) Pulse Ox O2 Delivery O2 Flow Rate FiO2 11/30/19 16:00 2.5 11/30/19 16:00 60 11/30/19 16:00 97.6 59 20 117/45 (69) 100 11/30/19 12:43 98 Nasal Cannula 3.0 32 11/30/19 12:00 59 11/30/19 12:00 2.5 11/30/19 12:00 97.6 59 20 132/52 (78) 100 11/30/19 09:00 Nasal Cannula 3.0 11/30/19 08:16 58 152/40 11/30/19 08:15 58 152/40 11/30/19 08:00 2.5 11/30/19 08:00 97.5 58 20 152/40 (77) 100 11/30/19 08:00 58 11/30/19 07:34 66 11/30/19 04:00 2.5 11/30/19 04:00 97.9 75 18 133/48 (76) 95 11/30/19 04:00 74 11/30/19 00:00 2.5 11/30/19 00:00 76 11/30/19 00:00 97.3 92 18 138/52 (80) 96 11/29/19 21:21 80 133/42 11/29/19 21:21 80 133/42 11/29/19 21:00 Nasal Cannula 3.0 11/29/19 20:00 97.9 80 18 133/42 (72) 95 11/29/19 20:00 75 11/29/19 20:00 2.5 11/29/19 19:59 98 Nasal Cannula 3.0 32 Intake and Output 11/29/19 11/30/19 19:00 07:00 Intake Total 530 ml 70 ml Output Total 3000 ml Balance -2470 ml 70 ml Intake Free Water 90 ml 30 ml Tube Feeding 440 ml 40 ml Hemodialysis UF 3000 ml # Voids 2 4 # Bowel Movements 1 Laboratory Tests 11/30/19 05:50: White Blood Count 8.5, Red Blood Count 3.41L, Hemoglobin 9.5L, Hematocrit 32.4L , Mean Corpuscular Volume 95, Mean Corpuscular Hemoglobin 27.9, Mean Corpuscular Hemoglobin Concent 29.4L, Red Cell Distribution Width 15.6H, Platelet Count 224, Mean Platelet Volume 6.2L, Neutrophils (%) (Auto) 79.9H, Lymphocytes (%) (Auto) 14.2L, Monocytes (%) (Auto) 4.1, Eosinophils (%) (Auto) 1.3, Basophils (%) (Auto) 0.5 Height (Feet): 5 Height (Inches): 5.00 Weight (Pounds): 169 General Appearance: alert, other EENT: normal ENT inspection Neck: supple, other - No goiter no mass Cardiovascular: normal rate, regular rhythm, no gallop/murmur, no JVD Respiratory/Chest: lungs clear, no respiratory distress Abdomen: normal bowel sounds, non tender, soft, no organomegaly, no mass Extremities: non-tender Ayush Chang MD Nov 30, 2019 19:43
[2019-11-30 20:00] VITALS: BP 131/41
[2019-11-30] MEDS: Dyna-Hex 2% Top Sol 2oz TOPIC SCH (21:39)
[2019-12-01] VITALS: BP 133/48
[2019-12-01 04:00] VITALS: BP 135/48
--- NOTE | 2019-12-01 07:03 | Hematology/Onc Progress Note ---
Assessment/Plan Assessment/Plan ASSESSMENT AND RECOMMENDATIONS: # Anemia of chronic disease due to underlying chronic medical issues, multifactorial --> Anemia w/u has been reviewed. --> no evidence of hemolysis is noted, peripheral smear has been reviewed --> hgb goal is >7, transfuse as needed --> currently remains stable, occult blood negative --> hgb 8.4->8.6->8.3->8->8.2->9.2-->9.2->8.9-->8.1-->8.7>9.4-->8.7-->8->7.8-> 7.5-->7.4-->7.5-->8.1-->8-->8.1-->9.5 --> some blood loss due to hematuria after inflated reyes pulled 8/6 am --> EPOGEN Started # Thrombocytopenia is likely due to infection --> plt trend 180-->149-->274 --> on abx as needed --> hep and hiv neg #. Leukocytosis with underlying infectionv stress reaction HISTORY --> per id and better --> for infection, ABX ctx/vanc-->off --> wbc 10-->5.9 # Acute kidney injury r/o potential reversible component --> reviewed meds, those that are renally cleared removed --> as per renal recs, appreciated --> cr 3.5-->4.2-->3.4->3.3 --> Hd started and dw renal # Hypertension, essential --> sbp goal is <140, consider anti-htn as needed --> currently started on hyralazine 25mg po q6h prn sbp >140 # CHF - hx of CHf --> diuresis with lasix as needed --> cardiology recs appreciated prior adm #. Bilateral lower extremity amputee, metatarsal several years ago #. Atrial fibrillation --> as per cards recs #. Dysphagia s/p peg --> peg pulled out and now with gtube 11/25 #. Hyperkalemia -- kayxelate as needed #. Agitation requires restraints #. Dvt ppx scds --> xarelto=> off-->eliquis The time the note was entered does not necessarily correspond to the time the patient was seen. GREATLY APPRECIATE CONSULTATION. Subjective Cardiovascular: Denies: no symptoms, chest pain, edema, irregular heart rate, lightheadedness, palpitations, syncope, other Respiratory: Denies: no symptoms, cough, shortness of breath, SOB with excertion, SOB at rest, sputum, wheezing, other Allergies: Coded Allergies: PENICILLINS (Verified Allergy, Unknown, 10/25/19) tolerated Ceftriaxone Uncoded Allergies: PENICILLIN (Allergy, Unknown, 11/23/19) All Systems: reviewed and negative except above Subjective / came back [facility] due to lack of bipap capability, hgb 7.5 11/24 labs reviewed, remains sob, with a hgb 8.1, no bleeding, jag rn, hold off prbc 11/25 labs are noted, for egd and peg in the am, jag rn, on nc 11/27 getting 3l nc overnight, has been refusing bipap unfortunately, hgb stable 11/28 labs noted, with gtube feeds, again this am refusing bipap 11/29 is on 2l nc, with gtube feeds, hgb 9.5, no bleeding 11/30 labs are noted, no bleeding, on gtube feeds, on 2l nc Objective Objective Current Medications Medications (Trade) Dose Ordered Sig/Cammy Route PRN Reason Start Time Stop Time Status Last Admin Dose Admin Albuterol/ Ipratropium (Albuterol/ Ipratropium) 3 ml Q4H PRN HHN Shortness of Breath 11/28/19 08:30 12/03/19 08:29 Allopurinol (allopurinoL) 300 mg DAILY ORAL 11/26/19 10:30 12/24/19 10:29 11/30/19 08:14 Amlodipine Besylate (Norvasc) 5 mg Q12HR GT 11/28/19 21:00 12/24/19 10:29 11/30/19 21:41 Apixaban (Eliquis) 2.5 mg BID ORAL 11/26/19 10:30 02/22/20 10:29 11/30/19 18:06 Atorvastatin Calcium (Lipitor) 10 mg BEDTIME ORAL 11/26/19 21:00 02/22/20 20:59 11/30/19 21:40 Chlorhexidine Gluconate (Yi-Hex 2%) 1 applic DAILY@2000 TOPIC 11/26/19 20:00 02/24/20 19:59 11/30/19 21:39 Docusate Sodium (Colace) 100 mg THREE TIMES A DAY NG 11/28/19 13:00 12/28/19 12:59 11/30/19 18:06 Lansoprazole (Prevacid) 30 mg DAILY GT 11/28/19 10:45 12/28/19 10:44 11/30/19 08:14 Lorazepam (Ativan 2mg/ml 1ml) 0.5 mg Q4H PRN IV For Anxiety 11/26/19 10:30 12/01/19 10:29 Metoprolol Tartrate (Lopressor) 12.5 mg Q12HR GT 11/29/19 09:00 02/27/20 08:59 11/30/19 21:40 Sennosides (Senokot) 8.6 mg DAILY PRN ORAL Constipation 11/26/19 10:30 12/26/19 10:29 Last 24 Hour Vital Signs Date Time Temp Pulse Resp B/P (MAP) Pulse Ox O2 Delivery O2 Flow Rate FiO2 12/01/19 04:00 2.5 12/01/19 04:00 59 12/01/19 04:00 97.1 61 18 135/48 (77) 94 12/01/19 00:00 58 12/01/19 00:00 2.5 12/01/19 00:00 97.9 59 18 133/48 (76) 99 11/30/19 21:41 60 131/41 11/30/19 21:40 60 131/41 11/30/19 21:00 Nasal Cannula 2.0 11/30/19 20:00 2.5 11/30/19 20:00 97.1 60 18 131/41 (71) 100 11/30/19 20:00 60 11/30/19 19:47 97 Nasal Cannula 3.0 32 11/30/19 16:00 2.5 11/30/19 16:00 60 11/30/19 16:00 97.6 59 20 117/45 (69) 100 11/30/19 12:43 98 Nasal Cannula 3.0 32 11/30/19 12:00 59 11/30/19 12:00 2.5 11/30/19 12:00 97.6 59 20 132/52 (78) 100 11/30/19 09:00 Nasal Cannula 3.0 11/30/19 08:16 58 152/40 11/30/19 08:15 58 152/40 11/30/19 08:00 2.5 11/30/19 08:00 97.5 58 20 152/40 (77) 100 11/30/19 08:00 58 11/30/19 07:34 66 11/30/19 04:00 2.5 11/30/19 04:00 97.9 75 18 133/48 (76) 95 11/30/19 04:00 74 11/30/19 00:00 2.5 11/30/19 00:00 76 11/30/19 00:00 97.3 92 18 138/52 (80) 96 11/29/19 21:21 80 133/42 11/29/19 21:21 80 133/42 11/29/19 21:00 Nasal Cannula 3.0 11/29/19 20:00 97.9 80 18 133/42 (72) 95 11/29/19 20:00 75 11/29/19 20:00 2.5 11/29/19 19:59 98 Nasal Cannula 3.0 32 11/29/19 16:00 97.9 56 22 117/49 (71) 95 11/29/19 16:00 57 11/29/19 16:00 2.5 11/29/19 12:00 2.5 11/29/19 12:00 69 11/29/19 12:00 97.7 70 20 158/64 (95) 94 11/29/19 09:00 59 143/50 11/29/19 09:00 59 143/50 11/29/19 09:00 Nasal Cannula 3.0 11/29/19 08:00 97.5 59 20 143/50 (81) 98 11/29/19 08:00 2.5 11/29/19 08:00 59 11/29/19 07:40 97 Nasal Cannula 3.0 32 Intake and Output 11/30/19 12/01/19 19:00 07:00 Output Total 100 ml Balance -100 ml Output Urine Total 100 ml # Voids 1 1 # Bowel Movements 1 1 Labs Test 11/29/19 05:55 11/30/19 05:50 White Blood Count 8.8 K/UL (4.8-10.8) 8.5 K/UL (4.8-10.8) Red Blood Count 2.85 M/UL (4.70-6.10) 3.41 M/UL (4.70-6.10) Hemoglobin 8.1 G/DL (14.2-18.0) 9.5 G/DL (14.2-18.0) Hematocrit 27.1 % (42.0-52.0) 32.4 % (42.0-52.0) Mean Corpuscular Volume 95 FL (80-99) 95 FL (80-99) Mean Corpuscular Hemoglobin 28.3 PG (27.0-31.0) 27.9 PG (27.0-31.0) Mean Corpuscular Hemoglobin Concent 29.8 G/DL (32.0-36.0) 29.4 G/DL (32.0-36.0) Red Cell Distribution Width 15.4 % (11.6-14.8) 15.6 % (11.6-14.8) Platelet Count 238 K/UL (150-450) 224 K/UL (150-450) Mean Platelet Volume 6.2 FL (6.5-10.1) 6.2 FL (6.5-10.1) Neutrophils (%) (Auto) 79.9 % (45.0-75.0) 79.9 % (45.0-75.0) Lymphocytes (%) (Auto) 13.0 % (20.0-45.0) 14.2 % (20.0-45.0) Monocytes (%) (Auto) 5.4 % (1.0-10.0) 4.1 % (1.0-10.0) Eosinophils (%) (Auto) 1.1 % (0.0-3.0) 1.3 % (0.0-3.0) Basophils (%) (Auto) 0.6 % (0.0-2.0) 0.5 % (0.0-2.0) Height (Feet): 5 Height (Inches): 5.00 Weight (Pounds): 169 Objective GENERAL: Not in acute distress. HEENT: ncat PULMONARY: Decreased breath sounds. ++ bipap v nc+ CHEST: ++permacath right chest CARDIOVASCULAR: Regular rate. No S3 or S4. ABDOMEN: Soft, nontender, nondistended.++peg EXTREMITIES: 1+ edema. No cyanosis, swelling, or edema. 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 Melvin Rizzo MD Dec 01, 2019 07:03
[2019-12-01 07:48] LABS: ALANINE AMINOTRANSFERASE 10 U/L (12-78); ALBUMIN 2.4 G/DL (3.4-5.0); ALBUMIN/GLOBULIN RATIO 0.6 (1.0-2.7); ALKALINE PHOSPHATASE 197 U/L (46-116); ANION GAP 3 mmol/L (5-15); ASPARTATE AMINO TRANSFERASE 15 U/L (15-37); BILIRUBIN,TOTAL 0.4 MG/DL (0.2-1.0); BLOOD UREA NITROGEN 77 mg/dL (7-18); CALCIUM 8.8 MG/DL (8.5-10.1); CARBON DIOXIDE 35 MMOL/L (21-32); CHLORIDE 98 MMOL/L (98-107); CREATININE 3.8 MG/DL (0.55-1.30); PHOSPHORUS 4.2 MG/DL (2.5-4.9); POTASSIUM 4.1 MMOL/L (3.5-5.1); SODIUM 135 MMOL/L (136-145)
[2019-12-01 07:50] LABS: HEMATOCRIT 26.5 % (42.0-52.0); HEMOGLOBIN 7.9 G/DL (14.2-18.0); MEAN CORPUSCULAR VOLUME 93 FL (80-99); PLATELET COUNT 205 K/UL (150-450); RED BLOOD COUNT 2.84 M/UL (4.70-6.10); RED CELL DISTRIBUTION WIDTH 15.2 % (11.6-14.8)
[2019-12-01 08:00] VITALS: BP 136/46
--- NOTE | 2019-12-01 09:02 | General Progress Note ---
Assessment/Plan Problem List: (1) Hypertension ICD Codes: I10 - Essential (primary) hypertension SNOMED: 22188077 (2) Diabetes mellitus ICD Codes: E11.9 - Type 2 diabetes mellitus without complications SNOMED: 70954584 (3) Cholelithiasis ICD Codes: K80.20 - Calculus of gallbladder without cholecystitis without obstruction SNOMED: 631032915 Assessment/Plan: dysphagia s/p GT placement GTF monitor for residuals Subjective ROS Limited/Unobtainable: No Allergies: Coded Allergies: PENICILLINS (Verified Allergy, Unknown, 10/25/19) tolerated Ceftriaxone Uncoded Allergies: PENICILLIN (Allergy, Unknown, 11/23/19) Objective Last 24 Hour Vital Signs Date Time Temp Pulse Resp B/P (MAP) Pulse Ox O2 Delivery O2 Flow Rate FiO2 12/01/19 08:00 97.7 57 20 136/46 (76) 100 12/01/19 04:00 2.5 12/01/19 04:00 59 12/01/19 04:00 97.1 61 18 135/48 (77) 94 12/01/19 00:00 58 12/01/19 00:00 2.5 12/01/19 00:00 97.9 59 18 133/48 (76) 99 11/30/19 21:41 60 131/41 11/30/19 21:40 60 131/41 11/30/19 21:00 Nasal Cannula 2.0 11/30/19 20:00 2.5 11/30/19 20:00 97.1 60 18 131/41 (71) 100 11/30/19 20:00 60 11/30/19 19:47 97 Nasal Cannula 3.0 32 11/30/19 16:00 2.5 11/30/19 16:00 60 11/30/19 16:00 97.6 59 20 117/45 (69) 100 11/30/19 12:43 98 Nasal Cannula 3.0 32 11/30/19 12:00 59 11/30/19 12:00 2.5 11/30/19 12:00 97.6 59 20 132/52 (78) 100 Intake and Output 11/30/19 12/01/19 19:00 07:00 Output Total 100 ml Balance -100 ml Output Urine Total 100 ml # Voids 1 1 # Bowel Movements 1 1 Laboratory Tests 12/01/19 05:45: White Blood Count 11.0H, Red Blood Count 2.84L, Hemoglobin 7.9L, Hematocrit 26.5L, Mean Corpuscular Volume 93, Mean Corpuscular Hemoglobin 27.9, Mean Corpuscular Hemoglobin Concent 30.0L, Red Cell Distribution Width 15.2H, Platelet Count 205, Mean Platelet Volume 6.6, Neutrophils (%) (Auto) , Lymphocytes (%) (Auto) , Monocytes (%) (Auto) , Eosinophils (%) (Auto) , Basophils (%) (Auto) , Differential Total Cells Counted 100, Neutrophils % ( Manual) 85H, Lymphocytes % (Manual) 12L, Monocytes % (Manual) 1, Eosinophils % ( Manual) 2, Basophils % (Manual) 0, Band Neutrophils 0, Platelet Estimate Adequate, Platelet Morphology Normal, Hypochromasia 1+, Anisocytosis 1+, Sodium Level 135L, Potassium Level 4.1, Chloride Level 98, Carbon Dioxide Level 35H, Anion Gap 3L, Blood Urea Nitrogen 77H, Creatinine 3.8H, Estimat Glomerular Filtration Rate 15.4, Glucose Level 227H, Calcium Level 8.8, Phosphorus Level 4.2, Magnesium Level 2.9H, Total Bilirubin 0.4, Aspartate Amino Transf (AST/SGOT ) 15, Alanine Aminotransferase (ALT/SGPT) 10L, Alkaline Phosphatase 197H, Total Protein 6.5, Albumin 2.4L, Globulin 4.1, Albumin/Globulin Ratio 0.6L Height (Feet): 5 Height (Inches): 5.00 Weight (Pounds): 169 General Appearance: no apparent distress EENT: normal ENT inspection Neck: supple Cardiovascular: normal rate Respiratory/Chest: decreased breath sounds Abdomen: normal bowel sounds, non tender, soft Extremities: non-tender Lawrence Humphreys MD Dec 01, 2019 09:02
[2019-12-01] MEDS: Docusate 100mg/10ml Liq NG SCH ×3 (09:42→18:45)
[2019-12-01] MEDS: Metoprolol Tartrate 12.5mg TAB GT SCH ×2 (09:42→20:53)
[2019-12-01] MEDS: Eliquis 2.5mg tablet ORAL SCH ×2 (09:42→18:45)
[2019-12-01 12:00] VITALS: BP 127/42
--- NOTE | 2019-12-01 13:31 | Nephrology Progress Note ---
Assessment/Plan Problem List: (1) Respiratory distress (2) Diabetes mellitus (3) Hypertension (4) Renal failure (ARF), acute on chronic Assessment Patient's current problem is dyspnea Most likely volume overload versus pneumonitis Other conditions: Renal failure (ARF), acute on chronic h/o Metabolic acidosis h/oElectrolyte imbalance Hyponatremia and hyperkalemia h/oAnemia h/o CHF (congestive heart failure) Plan November 30: Patient was last dialyzed November 28. Not in any distress now. Appears to be more verbal today. Labs reviewed. Creatinine 3.8. Hemoglobin lower at 7.9. 1 dose of IV iron ordered. Subcu Epogen ordered. November 29: Dialyzed yesterday. Status quo. Will check chemistry panel tomorrow. Dialysis as needed. Continue per PMD and consultants. November 28: Due for dialysis and ultrafiltration today. Labs and medications reviewed. Blood pressure is stable. November 27: BNP rising. Not much urine output. Will dialyze and ultrafiltrate tomorrow. Labs reviewed. Continue to adjust blood pressure medications. Continue per consultants. November 26: Last dialysis November 24. Status quo. Labs reviewed. Medication list reviewed. Continue to monitor renal parameters. Dialysis as needed. November 25: Patient was dialyzed yesterday. Today is due for insertion of a GT tube. Patient pulled out his previous GT tube. Labs reviewed. Electrolytes abnormalities adjusted. Continue to monitor renal parameters. Patient is off BiPAP and on nasal cannula now. I believe that upon discharge the patient requires 2-3 times a week dialysis and ultrafiltration however upon discharge the patient needs to be followed by a public message service supervisor in the facility that he goes to to assess on a regular basis the need and frequency for dialysis. November 24 : Late note entry due to system problem at the [facility] [place]. Patient due for dialysis and ultrafiltration today. Labs reviewed. Chest x-ray results not available on EMR. Last dialysis November 21. Continue pulmonary toilet. Patient remains on BiPAP. Will check labs tomorrow. Subjective ROS Limited/Unobtainable: No Constitutional: Reports: malaise, weakness Objective Objective Last 24 Hour Vital Signs Date Time Temp Pulse Resp B/P (MAP) Pulse Ox O2 Delivery O2 Flow Rate FiO2 12/01/19 12:41 98 Nasal Cannula 3.0 32 12/01/19 12:00 97.0 69 18 127/42 (70) 99 9/9/20 12:00 2.5 12/01/19 09:42 57 136/46 12/01/19 09:42 57 136/46 12/01/19 09:00 Nasal Cannula 2.0 12/01/19 09:00 2.5 12/01/19 08:00 59 12/01/19 08:00 97.7 57 20 136/46 (76) 100 12/01/19 04:00 2.5 12/01/19 04:00 59 12/01/19 04:00 97.1 61 18 135/48 (77) 94 12/01/19 00:00 58 12/01/19 00:00 2.5 12/01/19 00:00 97.9 59 18 133/48 (76) 99 11/30/19 21:41 60 131/41 11/30/19 21:40 60 131/41 11/30/19 21:00 Nasal Cannula 2.0 11/30/19 20:00 2.5 11/30/19 20:00 97.1 60 18 131/41 (71) 100 11/30/19 20:00 60 11/30/19 19:47 97 Nasal Cannula 3.0 32 11/30/19 16:00 2.5 11/30/19 16:00 60 11/30/19 16:00 97.6 59 20 117/45 (69) 100 Intake and Output 11/30/19 12/01/19 19:00 07:00 Output Total 100 ml Balance -100 ml Output Urine Total 100 ml # Voids 1 1 # Bowel Movements 1 1 Laboratory Tests 12/01/19 05:45: White Blood Count 11.0H, Red Blood Count 2.84L, Hemoglobin 7.9L, Hematocrit 26.5L, Mean Corpuscular Volume 93, Mean Corpuscular Hemoglobin 27.9, Mean Corpuscular Hemoglobin Concent 30.0L, Red Cell Distribution Width 15.2H, Platelet Count 205, Mean Platelet Volume 6.6, Neutrophils (%) (Auto) , Lymphocytes (%) (Auto) , Monocytes (%) (Auto) , Eosinophils (%) (Auto) , Basophils (%) (Auto) , Differential Total Cells Counted 100, Neutrophils % ( Manual) 85H, Lymphocytes % (Manual) 12L, Monocytes % (Manual) 1, Eosinophils % ( Manual) 2, Basophils % (Manual) 0, Band Neutrophils 0, Platelet Estimate Adequate, Platelet Morphology Normal, Hypochromasia 1+, Anisocytosis 1+, Sodium Level 135L, Potassium Level 4.1, Chloride Level 98, Carbon Dioxide Level 35H, Anion Gap 3L, Blood Urea Nitrogen 77H, Creatinine 3.8H, Estimat Glomerular Filtration Rate 15.4, Glucose Level 227H, Calcium Level 8.8, Phosphorus Level 4.2, Magnesium Level 2.9H, Total Bilirubin 0.4, Aspartate Amino Transf (AST/SGOT ) 15, Alanine Aminotransferase (ALT/SGPT) 10L, Alkaline Phosphatase 197H, Total Protein 6.5, Albumin 2.4L, Globulin 4.1, Albumin/Globulin Ratio 0.6L Height (Feet): 5 Height (Inches): 5.00 Weight (Pounds): 169 Naveed Vanegas MD Dec 01, 2019 13:31
[2019-12-01 16:00] VITALS: BP 150/45
[2019-12-01] MEDS ORDERED: Iron Sucrose 200 MG in NS 110 ML IV ONE (16:00)
--- NOTE | 2019-12-01 16:53 | General Progress Note ---
Assessment/Plan Status Narrative Patient is awake alert febrile slightly confused distress and think he is not respected He has mild shortness of breath but I observation but denies any respiratory distress We are still present waiting for patient placement extremities as well as vertebrobasilar repeat laboratory tests will be done in a.. AYUSH CHANG MD Subjective Constitutional: Reports: no symptoms HEENT: Reports: no symptoms Cardiovascular: Reports: no symptoms Respiratory: Reports: shortness of breath, other - Breathing typical of sleep apnea Gastrointestinal/Abdominal: Reports: no symptoms Genitourinary: Reports: no symptoms Neurologic/Psychiatric: Reports: depressed Allergies: Coded Allergies: PENICILLINS (Verified Allergy, Unknown, 10/25/19) tolerated Ceftriaxone Uncoded Allergies: PENICILLIN (Allergy, Unknown, 11/23/19) Objective Last 24 Hour Vital Signs Date Time Temp Pulse Resp B/P (MAP) Pulse Ox O2 Delivery O2 Flow Rate FiO2 12/01/19 16:00 2.5 12/01/19 12:41 98 Nasal Cannula 3.0 32 12/01/19 12:00 97.0 69 18 127/42 (70) 99 12/01/19 12:00 2.5 12/01/19 12:00 60 12/01/19 09:42 57 136/46 12/01/19 09:42 57 136/46 12/01/19 09:00 Nasal Cannula 2.0 12/01/19 09:00 2.5 12/01/19 08:00 59 12/01/19 08:00 97.7 57 20 136/46 (76) 100 12/01/19 04:00 2.5 12/01/19 04:00 59 12/01/19 04:00 97.1 61 18 135/48 (77) 94 12/01/19 00:00 58 12/01/19 00:00 2.5 12/01/19 00:00 97.9 59 18 133/48 (76) 99 11/30/19 21:41 60 131/41 11/30/19 21:40 60 131/41 11/30/19 21:00 Nasal Cannula 2.0 11/30/19 20:00 2.5 11/30/19 20:00 97.1 60 18 131/41 (71) 100 11/30/19 20:00 60 11/30/19 19:47 97 Nasal Cannula 3.0 32 Intake and Output 11/30/19 12/01/19 19:00 07:00 Output Total 100 ml Balance -100 ml Output Urine Total 100 ml # Voids 1 1 # Bowel Movements 1 1 Laboratory Tests 12/01/19 05:45: White Blood Count 11.0H, Red Blood Count 2.84L, Hemoglobin 7.9L, Hematocrit 26.5L, Mean Corpuscular Volume 93, Mean Corpuscular Hemoglobin 27.9, Mean Corpuscular Hemoglobin Concent 30.0L, Red Cell Distribution Width 15.2H, Platelet Count 205, Mean Platelet Volume 6.6, Neutrophils (%) (Auto) , Lymphocytes (%) (Auto) , Monocytes (%) (Auto) , Eosinophils (%) (Auto) , Basophils (%) (Auto) , Differential Total Cells Counted 100, Neutrophils % ( Manual) 85H, Lymphocytes % (Manual) 12L, Monocytes % (Manual) 1, Eosinophils % ( Manual) 2, Basophils % (Manual) 0, Band Neutrophils 0, Platelet Estimate Adequate, Platelet Morphology Normal, Hypochromasia 1+, Anisocytosis 1+, Sodium Level 135L, Potassium Level 4.1, Chloride Level 98, Carbon Dioxide Level 35H, Anion Gap 3L, Blood Urea Nitrogen 77H, Creatinine 3.8H, Estimat Glomerular Filtration Rate 15.4, Glucose Level 227H, Calcium Level 8.8, Phosphorus Level 4.2, Magnesium Level 2.9H, Total Bilirubin 0.4, Aspartate Amino Transf (AST/SGOT ) 15, Alanine Aminotransferase (ALT/SGPT) 10L, Alkaline Phosphatase 197H, Total Protein 6.5, Albumin 2.4L, Globulin 4.1, Albumin/Globulin Ratio 0.6L Height (Feet): 5 Height (Inches): 5.00 Weight (Pounds): 169 General Appearance: alert, mild distress EENT: normal ENT inspection Neck: supple Cardiovascular: normal rate, regular rhythm, no gallop/murmur, no JVD Respiratory/Chest: lungs clear, decreased breath sounds, other - There is a mild shortness of breath Abdomen: normal bowel sounds, non tender, soft, no organomegaly, no mass Extremities: non-tender Neurologic: responsive Ayush Chang MD Dec 01, 2019 16:53
--- NOTE | 2019-12-01 16:57 | Pulmonology Progress Note ---
Reema Hanna EQUIPMENT DETAILER 12/01/19 1657: Subjective ROS Limited/Unobtainable: No Allergies: Coded Allergies: PENICILLINS (Verified Allergy, Unknown, 10/25/19) tolerated Ceftriaxone Uncoded Allergies: PENICILLIN (Allergy, Unknown, 11/23/19) All Systems: reviewed and negative except above Subjective on tele off BiPAP now on O2 via NC, pulse ox stable no signs of resp distress continue to decline BiPAP at night bioethics eval was done 11/25 and SHERRIE spoke with daughter and 11/29 SW discussed with daughter bioethics recs in search of new SNF currently Objective Last 24 Hour Vital Signs Date Time Temp Pulse Resp B/P (MAP) Pulse Ox O2 Delivery O2 Flow Rate FiO2 12/01/19 16:00 2.5 12/01/19 12:41 98 Nasal Cannula 3.0 32 12/01/19 12:00 97.0 69 18 127/42 (70) 99 12/01/19 12:00 2.5 12/01/19 12:00 60 12/01/19 09:42 57 136/46 12/01/19 09:42 57 136/46 12/01/19 09:00 Nasal Cannula 2.0 12/01/19 09:00 2.5 12/01/19 08:00 59 12/01/19 08:00 97.7 57 20 136/46 (76) 100 12/01/19 04:00 2.5 12/01/19 04:00 59 12/01/19 04:00 97.1 61 18 135/48 (77) 94 12/01/19 00:00 58 12/01/19 00:00 2.5 12/01/19 00:00 97.9 59 18 133/48 (76) 99 11/30/19 21:41 60 131/41 11/30/19 21:40 60 131/41 11/30/19 21:00 Nasal Cannula 2.0 11/30/19 20:00 2.5 11/30/19 20:00 97.1 60 18 131/41 (71) 100 11/30/19 20:00 60 11/30/19 19:47 97 Nasal Cannula 3.0 32 Intake and Output 11/30/19 12/01/19 19:00 07:00 Output Total 100 ml Balance -100 ml Output Urine Total 100 ml # Voids 1 1 # Bowel Movements 1 1 Objective General Appearance: alert , confused, Sami speaking Lines, tubes and drains: peripheral HEENT: normocephalic, atraumatic, anicteric Neck: supple Respiratory/Chest: lungs clear, no respiratory distress Cardiovascular/Chest: normal rate Abdomen: non tender, soft, feeding tube - G tube Extremities: BL foot TMA Neurologic: abnormal gait, alert, confused, responsive Musculoskeletal: atrophy - BLE Laboratory Tests 12/01/19 05:45: White Blood Count 11.0H, Red Blood Count 2.84L, Hemoglobin 7.9L, Hematocrit 26.5L, Mean Corpuscular Volume 93, Mean Corpuscular Hemoglobin 27.9, Mean Corpuscular Hemoglobin Concent 30.0L, Red Cell Distribution Width 15.2H, Platelet Count 205, Mean Platelet Volume 6.6, Neutrophils (%) (Auto) , Lymphocytes (%) (Auto) , Monocytes (%) (Auto) , Eosinophils (%) (Auto) , Basophils (%) (Auto) , Differential Total Cells Counted 100, Neutrophils % ( Manual) 85H, Lymphocytes % (Manual) 12L, Monocytes % (Manual) 1, Eosinophils % ( Manual) 2, Basophils % (Manual) 0, Band Neutrophils 0, Platelet Estimate Adequate, Platelet Morphology Normal, Hypochromasia 1+, Anisocytosis 1+, Sodium Level 135L, Potassium Level 4.1, Chloride Level 98, Carbon Dioxide Level 35H, Anion Gap 3L, Blood Urea Nitrogen 77H, Creatinine 3.8H, Estimat Glomerular Filtration Rate 15.4, Glucose Level 227H, Calcium Level 8.8, Phosphorus Level 4.2, Magnesium Level 2.9H, Total Bilirubin 0.4, Aspartate Amino Transf (AST/SGOT ) 15, Alanine Aminotransferase (ALT/SGPT) 10L, Alkaline Phosphatase 197H, Total Protein 6.5, Albumin 2.4L, Globulin 4.1, Albumin/Globulin Ratio 0.6L Current Medications Medications (Trade) Dose Ordered Sig/Cammy Route PRN Reason Start Time Stop Time Status Last Admin Dose Admin Albuterol/ Ipratropium (Albuterol/ Ipratropium) 3 ml Q4H PRN HHN Shortness of Breath 11/28/19 08:30 12/03/19 08:29 Allopurinol (allopurinoL) 300 mg DAILY ORAL 11/26/19 10:30 12/24/19 10:29 12/01/19 09:42 Amlodipine Besylate (Norvasc) 5 mg Q12HR GT 11/28/19 21:00 12/24/19 10:29 12/01/19 09:42 Apixaban (Eliquis) 2.5 mg BID ORAL 11/26/19 10:30 02/22/20 10:29 12/01/19 09:42 Atorvastatin Calcium (Lipitor) 10 mg BEDTIME ORAL 11/26/19 21:00 02/22/20 20:59 11/30/19 21:40 Chlorhexidine Gluconate (Yi-Hex 2%) 1 applic DAILY@1999 TOPIC 11/26/19 20:00 02/24/20 19:59 11/30/19 21:39 Docusate Sodium (Colace) 100 mg THREE TIMES A DAY NG 11/28/19 13:00 12/28/19 12:59 12/01/19 13:34 Epoetin William (Epoetin William(ESRD on dialysis)) 10,000 unit FRI-FRI-FRI SUBQ 12/01/19 21:00 02/29/20 20:59 Lansoprazole (Prevacid) 30 mg DAILY GT 11/28/19 10:45 12/28/19 10:44 12/01/19 09:41 Metoprolol Tartrate (Lopressor) 12.5 mg Q12HR GT 11/29/19 09:00 02/27/20 08:59 12/01/19 09:42 Sennosides (Senokot) 8.6 mg DAILY PRN ORAL Constipation 11/26/19 10:30 12/26/19 10:29 Assessment/Plan Assessment/Plan ASSESSMENT Prior acute hypoxemic hypercapnic respiratory failure requiring BiPAP Chronic CO2 retention Possible DAYANA Aspiration risk s/p recent PNA Dysphagia , s/p PEG , pulled out, s/p replacement of PEG 11/16 Acute kidney injury on chronic kidney disease, requiring start of HD 10/30 Anemia of chronic kidney disease Diabetes mellitus HTN PVD with hx of bilateral foot MTA Refusal of care PLAN OF CARE tele BiPAP at HS and prn , refusing again currently on O2 3 L via NC titrate O2, pulm toilet patient likely has DAYANA. recommend sleep study as OP CXR 11/28 Mild vascular congestion and small bilateral pleural effusions, slightly improved when compared to October 31, 2019. No pneumothorax.Cardiomegaly. Calcified aorta. ABG prn rapid COVID NGT, BiPAP prn and HS ethics eval if pt can refuse BiPAP ( patient with dementia, confusion), daughter wants BiPAP and unclear how he refused if was on restraints? in our opinion BiPAP should be on standing order and available in the facility when patient will be transferred need formal polysomnogram to be done as OP bioethics eval appreciated, done 11/25 . per bioethics: pt with diminished capacity and does not understand the consequences of refusing bi-pap, yet it seems inhumane to force him to endure it recommended that he should be discharged to the SNF on nasal canula with instructions not to be sent back to the acute care hospital for refusal to accept bi-pap. we are happy to have a family conference to explain the reasoning here if the family is willing to speak with us. SW spoke with daughter and ( through RN mixer machine feeder) re further GOC and code status 11/29 is considering DNR/DNI status but need to speak with Dr Chang first dc plan to SNF CM to discuss with family ( not want [facility]) completed Rx for PNA on prior admission Venous Duplex BLE 10/25 -> NGT on Eliquis aspir precautions, new BSSE pending TF via GT for now protein supplements HD as per nephro recs monitor volumes, renal paramerts, lytes s/p placement of permanent HD catheter R chest 11/07 s/p removal of temporary HD catheter by surgeon ECHO with pEF 55-60% rate control with BB, HR stable on chronic a/c , was on hold for PEG, Eliquis resumed BP management with CCB and BB, optimize as needed continue statin prior HgA1c -6.1 hold oral anti-glycemic monitor HH with goal to keep Hgb above 7 anemia w/up prior noted , heme on board on EPO GI prophayxlis supportive care case discussed and evaluated by supervising physician Jonathon Pabon MD 12/01/19 5245: Subjective Allergies: Coded Allergies: PENICILLINS (Verified Allergy, Unknown, 10/25/19) tolerated Ceftriaxone Uncoded Allergies: PENICILLIN (Allergy, Unknown, 11/23/19) Assessment/Plan Assessment/Plan Patient seen and examined with EQUIPMENT DETAILER. Agree with above A&P as it reflects our joint deliberations. Reema Hanna NP Dec 01, 2019 16:57 Jonathon Pabon MD Dec 01, 2019 16:58
[2019-12-01 20:00] VITALS: BP 121/76
[2019-12-01] MEDS: Dyna-Hex 2% Top Sol 2oz TOPIC SCH (20:52)
[2019-12-01] MEDS: Epoetin Alfa-EPBX(ESRD on dialysis)10,000 unit/ml vial SUBQ SCH (21:55)
[2019-12-02] VITALS: BP_SYST 127; BP_SYST 139; BP_DIAS 55; BP_DIAS 59
[2019-12-02 04:00] VITALS: BP 120/54
--- NOTE | 2019-12-02 07:20 | Hematology/Onc Progress Note ---
Assessment/Plan Assessment/Plan ASSESSMENT AND RECOMMENDATIONS: # Anemia of chronic disease due to underlying chronic medical issues, multifactorial --> Anemia w/u has been reviewed. --> no evidence of hemolysis is noted, peripheral smear has been reviewed --> hgb goal is >7, transfuse as needed --> currently remains stable, occult blood negative --> hgb 8.4->8.6->8.3->8->8.2->9.2-->9.2->8.9-->8.1-->8.7>9.4-->8.7-->8->7.8-> 7.5-->7.4-->7.5-->8.1-->8-->8.1-->9.5->7.9 --> some blood loss due to hematuria after inflated reyes pulled 8/6 am --> EPOGEN Started # Thrombocytopenia is likely due to infection --> plt trend 180-->149-->274 --> on abx as needed --> hep and hiv neg #. Leukocytosis with underlying infectionv stress reaction HISTORY --> per id and better --> for infection, ABX ctx/vanc-->off --> wbc 10-->5.9 # Acute kidney injury r/o potential reversible component --> reviewed meds, those that are renally cleared removed --> as per renal recs, appreciated --> cr 3.5-->4.2-->3.4->3.3 --> Hd started and dw renal # Hypertension, essential --> sbp goal is <140, consider anti-htn as needed --> currently started on hyralazine 25mg po q6h prn sbp >140 # CHF - hx of CHf --> diuresis with lasix as needed --> cardiology recs appreciated prior adm #. Bilateral lower extremity amputee, metatarsal several years ago #. Atrial fibrillation --> as per cards recs #. Dysphagia s/p peg --> peg pulled out and now with gtube 11/25 #. Hyperkalemia --> kayxelate as needed #. Agitation requires restraints #. Dvt ppx scds --> xarelto=> off-->eliquis The time the note was entered does not necessarily correspond to the time the patient was seen. GREATLY APPRECIATE CONSULTATION. Subjective Constitutional: Denies: no symptoms, chills, fever, malaise, weakness, other Cardiovascular: Denies: no symptoms, chest pain, edema, irregular heart rate, lightheadedness, palpitations, syncope, other Respiratory: Denies: no symptoms, cough, shortness of breath, SOB with excertion, SOB at rest, sputum, wheezing, other Gastrointestinal/Abdominal: Denies: no symptoms, abdomen distended, abdominal pain, black stools, tarry stools, blood in stool, constipated, diarrhea, difficulty swallowing, nausea, poor appetite, poor fluid intake, rectal bleeding , vomiting, other Genitourinary: Denies: no symptoms, burning, discharge, frequency, flank pain, hematuria, incontinence, pain, urgency, other Neurologic/Psychiatric: Denies: no symptoms, anxiety, depressed, emotional problems, headache, numbness, paresthesia, pre-existing deficit, seizure, tingling, tremors, weakness, other Endocrine: Denies: no symptoms, excessive sweating, flushing, intolerance to cold, intolerance to heat, increased hunger, increased thirst, increased urine, unexplained weight gain, unexplained weight loss, other Allergies: Coded Allergies: PENICILLINS (Verified Allergy, Unknown, 10/25/19) tolerated Ceftriaxone Uncoded Allergies: PENICILLIN (Allergy, Unknown, 11/23/19) Subjective 11/23 came back from [facility] due to lack of bipap capability, hgb 7.5 11/24 labs reviewed, remains sob, with a hgb 8.1, no bleeding, jag rn, hold off prbc 11/25 labs are noted, for egd and peg in the am, jag salas, on nc 11/27 getting 3l nc overnight, has been refusing bipap unfortunately, hgb stable 11/28 labs noted, with gtube feeds, again this am refusing bipap 11/29 is on 2l nc, with gtube feeds, hgb 9.5, no bleeding 11/30 labs are noted, no bleeding, on gtube feeds, on 2l nc 12/01 meds noted, no bleeding, hgb 7.9 yesterday, on nc Objective Objective Current Medications Medications (Trade) Dose Ordered Sig/Cammy Route PRN Reason Start Time Stop Time Status Last Admin Dose Admin Albuterol/ Ipratropium (Albuterol/ Ipratropium) 3 ml Q4H PRN HHN Shortness of Breath 11/28/19 08:30 12/03/19 08:29 Allopurinol (allopurinoL) 300 mg DAILY ORAL 11/26/19 10:30 12/24/19 10:29 12/01/19 09:42 Amlodipine Besylate (Norvasc) 5 mg Q12HR GT 11/28/19 21:00 12/24/19 10:29 12/01/19 20:53 Apixaban (Eliquis) 2.5 mg BID ORAL 11/26/19 10:30 02/22/20 10:29 12/01/19 18:45 Atorvastatin Calcium (Lipitor) 10 mg BEDTIME ORAL 11/26/19 21:00 02/22/20 20:59 12/01/19 20:52 Chlorhexidine Gluconate (Yi-Hex 2%) 1 applic DAILY@1999 TOPIC 11/26/19 20:00 02/24/20 19:59 12/01/19 20:52 Docusate Sodium (Colace) 100 mg THREE TIMES A DAY NG 11/28/19 13:00 12/28/19 12:59 12/01/19 18:45 Epoetin William (Epoetin William(ESRD on dialysis)) 10,000 unit FRI-FRI-FRI SUBQ 12/01/19 21:00 02/29/20 20:59 12/01/19 21:55 Lansoprazole (Prevacid) 30 mg DAILY GT 11/28/19 10:45 12/28/19 10:44 12/01/19 09:41 Metoprolol Tartrate (Lopressor) 12.5 mg Q12HR GT 11/29/19 09:00 02/27/20 08:59 12/01/19 20:53 Sennosides (Senokot) 8.6 mg DAILY PRN ORAL Constipation 11/26/19 10:30 12/26/19 10:29 Last 24 Hour Vital Signs Date Time Temp Pulse Resp B/P (MAP) Pulse Ox O2 Delivery O2 Flow Rate FiO2 12/02/19 04:00 2.5 12/02/19 04:00 97.5 59 20 120/54 (76) 100 12/02/19 04:00 61 12/02/19 00:00 98.1 60 22 139/55 (83) 99 12/02/19 00:00 60 12/01/19 21:00 Nasal Cannula 2.0 12/01/19 20:53 78 128/65 12/01/19 20:53 78 128/65 12/01/19 20:00 2.5 12/01/19 20:00 60 12/01/19 20:00 99.0 66 20 121/76 (91) 99 12/01/19 19:15 98 Nasal Cannula 3.0 32 12/01/19 16:00 97.7 58 20 150/45 (80) 98 12/01/19 16:00 60 12/01/19 16:00 2.5 12/01/19 12:41 98 Nasal Cannula 3.0 32 12/01/19 12:00 97.0 69 18 127/42 (70) 99 12/01/19 12:00 2.5 12/01/19 12:00 60 12/01/19 09:42 57 136/46 12/01/19 09:42 57 136/46 12/01/19 09:00 Nasal Cannula 2.0 12/01/19 09:00 2.5 12/01/19 08:00 59 12/01/19 08:00 97.7 57 20 136/46 (76) 100 12/01/19 04:00 2.5 12/01/19 04:00 59 12/01/19 04:00 97.1 61 18 135/48 (77) 94 12/01/19 00:00 58 12/01/19 00:00 2.5 12/01/19 00:00 97.9 59 18 133/48 (76) 99 11/30/19 21:41 60 131/41 11/30/19 21:40 60 131/41 11/30/19 21:00 Nasal Cannula 2.0 11/30/19 20:00 2.5 11/30/19 20:00 97.1 60 18 131/41 (71) 100 11/30/19 20:00 60 11/30/19 19:47 97 Nasal Cannula 3.0 32 11/30/19 16:00 2.5 11/30/19 16:00 60 11/30/19 16:00 97.6 59 20 117/45 (69) 100 11/30/19 12:43 98 Nasal Cannula 3.0 32 11/30/19 12:00 59 11/30/19 12:00 2.5 11/30/19 12:00 97.6 59 20 132/52 (78) 100 11/30/19 09:00 Nasal Cannula 3.0 11/30/19 08:16 58 152/40 11/30/19 08:15 58 152/40 11/30/19 08:00 2.5 11/30/19 08:00 97.5 58 20 152/40 (77) 100 11/30/19 08:00 58 11/30/19 07:34 66 Intake and Output 12/01/19 12/02/19 19:00 07:00 Intake Total 40 ml Balance 40 ml Tube Feeding 40 ml # Voids 3 2 # Bowel Movements 1 Labs Test 11/30/19 05:50 12/01/19 05:45 White Blood Count 8.5 K/UL (4.8-10.8) 11.0 K/UL (4.8-10.8) Red Blood Count 3.41 M/UL (4.70-6.10) 2.84 M/UL (4.70-6.10) Hemoglobin 9.5 G/DL (14.2-18.0) 7.9 G/DL (14.2-18.0) Hematocrit 32.4 % (42.0-52.0) 26.5 % (42.0-52.0) Mean Corpuscular Volume 95 FL (80-99) 93 FL (80-99) Mean Corpuscular Hemoglobin 27.9 PG (27.0-31.0) 27.9 PG (27.0-31.0) Mean Corpuscular Hemoglobin Concent 29.4 G/DL (32.0-36.0) 30.0 G/DL (32.0-36.0) Red Cell Distribution Width 15.6 % (11.6-14.8) 15.2 % (11.6-14.8) Platelet Count 224 K/UL (150-450) 205 K/UL (150-450) Mean Platelet Volume 6.2 FL (6.5-10.1) 6.6 FL (6.5-10.1) Neutrophils (%) (Auto) 79.9 % (45.0-75.0) % (45.0-75.0) Lymphocytes (%) (Auto) 14.2 % (20.0-45.0) % (20.0-45.0) Monocytes (%) (Auto) 4.1 % (1.0-10.0) % (1.0-10.0) Eosinophils (%) (Auto) 1.3 % (0.0-3.0) % (0.0-3.0) Basophils (%) (Auto) 0.5 % (0.0-2.0) % (0.0-2.0) Differential Total Cells Counted 100 Neutrophils % (Manual) 85 % (45-75) Lymphocytes % (Manual) 12 % (20-45) Monocytes % (Manual) 1 % (1-10) Eosinophils % (Manual) 2 % (0-3) Basophils % (Manual) 0 % (0-2) Band Neutrophils 0 % (0-8) Platelet Estimate Adequate Platelet Morphology Normal Hypochromasia 1+ Anisocytosis 1+ Sodium Level 135 MMOL/L (136-145) Potassium Level 4.1 MMOL/L (3.5-5.1) Chloride Level 98 MMOL/L (98-107) Carbon Dioxide Level 35 MMOL/L (21-32) Anion Gap 3 mmol/L (5-15) Blood Urea Nitrogen 77 mg/dL (7-18) Creatinine 3.8 MG/DL (0.55-1.30) Estimat Glomerular Filtration Rate 15.4 mL/min (>60) Glucose Level 227 MG/DL (74-106) Calcium Level 8.8 MG/DL (8.5-10.1) Phosphorus Level 4.2 MG/DL (2.5-4.9) Magnesium Level 2.9 MG/DL (1.8-2.4) Total Bilirubin 0.4 MG/DL (0.2-1.0) Aspartate Amino Transf (AST/SGOT) 15 U/L (15-37) Alanine Aminotransferase (ALT/SGPT) 10 U/L (12-78) Alkaline Phosphatase 197 U/L (46-116) Total Protein 6.5 G/DL (6.4-8.2) Albumin 2.4 G/DL (3.4-5.0) Globulin 4.1 g/dL Albumin/Globulin Ratio 0.6 (1.0-2.7) Height (Feet): 5 Height (Inches): 5.00 Weight (Pounds): 169 Objective GENERAL: Not in acute distress. HEENT: ncat PULMONARY: Decreased breath sounds. ++ bipap v nc+ CHEST: ++permacath right chest CARDIOVASCULAR: Regular rate. No S3 or S4. ABDOMEN: Soft, nontender, nondistended.++peg EXTREMITIES: 1+ edema. No cyanosis, swelling, or edema. 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 Melvin Rizzo MD Dec 02, 2019 07:20
[2019-12-02 07:39] LABS: BASOPHILS % (AUTO) 0.4 % (0.0-2.0); EOSINOPHILS % (AUTO) 1.2 % (0.0-3.0); HEMATOCRIT 27.6 % (42.0-52.0); HEMOGLOBIN 8.1 G/DL (14.2-18.0); LYMPHOCYTES % (AUTO) 16.2 % (20.0-45.0); MEAN CORPUSCULAR VOLUME 94 FL (80-99); MONOCYTES % (AUTO) 4.7 % (1.0-10.0); NEUTROPHILS % (AUTO) 77.5 % (45.0-75.0); PLATELET COUNT 220 K/UL (150-450); RED BLOOD COUNT 2.92 M/UL (4.70-6.10); RED CELL DISTRIBUTION WIDTH 15.6 % (11.6-14.8); WHITE BLOOD COUNT 8.6 K/UL (4.8-10.8)
[2019-12-02 08:00] VITALS: BP 120/67
[2019-12-02 08:01] LABS: ALANINE AMINOTRANSFERASE 10 U/L (12-78); ALBUMIN 2.5 G/DL (3.4-5.0); ALBUMIN/GLOBULIN RATIO 0.6 (1.0-2.7); ALKALINE PHOSPHATASE 221 U/L (46-116); ANION GAP 5 mmol/L (5-15); ASPARTATE AMINO TRANSFERASE 14 U/L (15-37); BILIRUBIN,TOTAL 0.3 MG/DL (0.2-1.0); BLOOD UREA NITROGEN 93 mg/dL (7-18); CALCIUM 9.2 MG/DL (8.5-10.1); CARBON DIOXIDE 34 MMOL/L (21-32); CHLORIDE 98 MMOL/L (98-107); CREATININE 4.2 MG/DL (0.55-1.30); PHOSPHORUS 4.8 MG/DL (2.5-4.9); POTASSIUM 4.5 MMOL/L (3.5-5.1); SODIUM 137 MMOL/L (136-145)
[2019-12-02] MEDS: Metoprolol Tartrate 12.5mg TAB GT SCH ×2 (09:14→21:15)
[2019-12-02] MEDS: Docusate 100mg/10ml Liq NG SCH ×3 (09:14→17:50)
[2019-12-02] MEDS: Eliquis 2.5mg tablet ORAL SCH ×2 (09:15→17:50)
--- NOTE | 2019-12-02 09:22 | General Progress Note ---
Assessment/Plan Problem List: (1) Hypertension ICD Codes: I10 - Essential (primary) hypertension SNOMED: 07604276 (2) Diabetes mellitus ICD Codes: E11.9 - Type 2 diabetes mellitus without complications SNOMED: 96901813 (3) Cholelithiasis ICD Codes: K80.20 - Calculus of gallbladder without cholecystitis without obstruction SNOMED: 659004180 Assessment/Plan: dysphagia s/p GT placement GTF monitor for residuals Subjective ROS Limited/Unobtainable: No Allergies: Coded Allergies: PENICILLINS (Verified Allergy, Unknown, 10/25/19) tolerated Ceftriaxone Uncoded Allergies: PENICILLIN (Allergy, Unknown, 11/23/19) Objective Last 24 Hour Vital Signs Date Time Temp Pulse Resp B/P (MAP) Pulse Ox O2 Delivery O2 Flow Rate FiO2 12/02/19 09:14 56 120/67 12/02/19 09:14 56 120/67 12/02/19 08:00 96.8 56 20 120/67 (84) 98 12/02/19 04:00 2.5 12/02/19 04:00 97.5 59 20 120/54 (76) 100 12/02/19 04:00 61 12/02/19 00:00 98.1 60 22 139/55 (83) 99 12/02/19 00:00 60 12/01/19 21:00 Nasal Cannula 2.0 12/01/19 20:53 78 128/65 12/01/19 20:53 78 128/65 12/01/19 20:00 2.5 12/01/19 20:00 60 12/01/19 20:00 99.0 66 20 121/76 (91) 99 12/01/19 19:15 98 Nasal Cannula 3.0 32 12/01/19 16:00 97.7 58 20 150/45 (80) 98 12/01/19 16:00 60 12/01/19 16:00 2.5 12/01/19 12:41 98 Nasal Cannula 3.0 32 12/01/19 12:00 97.0 69 18 127/42 (70) 99 12/01/19 12:00 2.5 12/01/19 12:00 60 12/01/19 09:42 57 136/46 12/01/19 09:42 57 136/46 Intake and Output 12/01/19 12/02/19 19:00 07:00 Intake Total 40 ml Balance 40 ml Tube Feeding 40 ml # Voids 3 2 # Bowel Movements 1 Laboratory Tests 12/02/19 04:31: White Blood Count 8.6, Red Blood Count 2.92L, Hemoglobin 8.1L, Hematocrit 27.6L , Mean Corpuscular Volume 94, Mean Corpuscular Hemoglobin 27.7, Mean Corpuscular Hemoglobin Concent 29.4L, Red Cell Distribution Width 15.6H, Platelet Count 220, Mean Platelet Volume 6.4L, Neutrophils (%) (Auto) 77.5H, Lymphocytes (%) (Auto) 16.2L, Monocytes (%) (Auto) 4.7, Eosinophils (%) (Auto) 1.2, Basophils (%) (Auto) 0.4, Sodium Level 137, Potassium Level 4.5, Chloride Level 98, Carbon Dioxide Level 34H, Anion Gap 5, Blood Urea Nitrogen 93H, Creatinine 4.2H, Estimat Glomerular Filtration Rate 13.7, Glucose Level 198H, Calcium Level 9.2, Phosphorus Level 4.8, Magnesium Level 3.4H, Total Bilirubin 0.3, Aspartate Amino Transf (AST/SGOT) 14L, Alanine Aminotransferase (ALT/SGPT) 10L, Alkaline Phosphatase 221H, Total Protein 6.9, Albumin 2.5L, Globulin 4.4, Albumin/Globulin Ratio 0.6L Height (Feet): 5 Height (Inches): 5.00 Weight (Pounds): 169 General Appearance: no apparent distress EENT: normal ENT inspection Neck: supple Cardiovascular: normal rate Respiratory/Chest: decreased breath sounds Abdomen: normal bowel sounds, non tender, soft Extremities: non-tender Lawrence Humphreys MD Dec 02, 2019 09:22
--- NOTE | 2019-12-02 10:32 | Pulmonology Progress Note ---
Reema Hanna PROCESS IMPROVEMENT ANALYST 12/02/19 1032: Subjective ROS Limited/Unobtainable: Yes Allergies: Coded Allergies: PENICILLINS (Verified Allergy, Unknown, 10/25/19) tolerated Ceftriaxone Uncoded Allergies: PENICILLIN (Allergy, Unknown, 11/23/19) All Systems: reviewed and negative except above Subjective on tele off BiPAP and continued to decline it now on O2 via NC, pulse ox stable no signs of resp distress bioethics eval was done 11/25 SHERRIE spoke with daughter and 11/29 SHERRIE discussed with daughter bioethics recs and further GOC and code status remains full code in search of new SNF currently Objective Last 24 Hour Vital Signs Date Time Temp Pulse Resp B/P (MAP) Pulse Ox O2 Delivery O2 Flow Rate FiO2 12/02/19 09:14 56 120/67 12/02/19 09:14 56 120/67 12/02/19 09:00 Nasal Cannula 2.0 12/02/19 08:00 71 12/02/19 08:00 96.8 56 20 120/67 (84) 98 12/02/19 07:00 98 Nasal Cannula 2.0 28 12/02/19 04:00 2.5 12/02/19 04:00 97.5 59 20 120/54 (76) 100 12/02/19 04:00 61 12/02/19 00:00 98.1 60 22 139/55 (83) 99 12/02/19 00:00 60 12/01/19 21:00 Nasal Cannula 2.0 12/01/19 20:53 78 128/65 12/01/19 20:53 78 128/65 12/01/19 20:00 2.5 12/01/19 20:00 60 12/01/19 20:00 99.0 66 20 121/76 (91) 99 12/01/19 19:15 98 Nasal Cannula 3.0 32 12/01/19 16:00 97.7 58 20 150/45 (80) 98 12/01/19 16:00 60 12/01/19 16:00 2.5 12/01/19 12:41 98 Nasal Cannula 3.0 32 12/01/19 12:00 97.0 69 18 127/42 (70) 99 12/01/19 12:00 2.5 12/01/19 12:00 60 Intake and Output 12/01/19 12/02/19 19:00 07:00 Intake Total 40 ml Balance 40 ml Tube Feeding 40 ml # Voids 3 2 # Bowel Movements 1 Objective General Appearance: alert , confused, Yi speaking Lines, tubes and drains: peripheral HEENT: normocephalic, atraumatic, anicteric, O2 via NC Neck: supple Respiratory/Chest: lungs clear, no respiratory distress Cardiovascular/Chest: normal rate Abdomen: non tender, soft, feeding tube - G tube Extremities: BL foot TMA Neurologic: abnormal gait, alert, confused, responsive Musculoskeletal: atrophy - BLE Laboratory Tests 12/02/19 04:31: White Blood Count 8.6, Red Blood Count 2.92L, Hemoglobin 8.1L, Hematocrit 27.6L , Mean Corpuscular Volume 94, Mean Corpuscular Hemoglobin 27.7, Mean Corpuscular Hemoglobin Concent 29.4L, Red Cell Distribution Width 15.6H, Platelet Count 220, Mean Platelet Volume 6.4L, Neutrophils (%) (Auto) 77.5H, Lymphocytes (%) (Auto) 16.2L, Monocytes (%) (Auto) 4.7, Eosinophils (%) (Auto) 1.2, Basophils (%) (Auto) 0.4, Sodium Level 137, Potassium Level 4.5, Chloride Level 98, Carbon Dioxide Level 34H, Anion Gap 5, Blood Urea Nitrogen 93H, Creatinine 4.2H, Estimat Glomerular Filtration Rate 13.7, Glucose Level 198H, Calcium Level 9.2, Phosphorus Level 4.8, Magnesium Level 3.4H, Total Bilirubin 0.3, Aspartate Amino Transf (AST/SGOT) 14L, Alanine Aminotransferase (ALT/SGPT) 10L, Alkaline Phosphatase 221H, Total Protein 6.9, Albumin 2.5L, Globulin 4.4, Albumin/Globulin Ratio 0.6L Current Medications Medications (Trade) Dose Ordered Sig/Cammy Route PRN Reason Start Time Stop Time Status Last Admin Dose Admin Albuterol/ Ipratropium (Albuterol/ Ipratropium) 3 ml Q4H PRN HHN Shortness of Breath 11/28/19 08:30 12/03/19 08:29 Allopurinol (allopurinoL) 300 mg DAILY ORAL 11/26/19 10:30 12/24/19 10:29 12/02/19 09:14 Amlodipine Besylate (Norvasc) 5 mg Q12HR GT 11/28/19 21:00 12/24/19 10:29 12/02/19 09:14 Apixaban (Eliquis) 2.5 mg BID ORAL 11/26/19 10:30 02/22/20 10:29 12/02/19 09:15 Atorvastatin Calcium (Lipitor) 10 mg BEDTIME ORAL 11/26/19 21:00 02/22/20 20:59 12/01/19 20:52 Chlorhexidine Gluconate (Yi-Hex 2%) 1 applic DAILY@1999 TOPIC 11/26/19 20:00 02/24/20 19:59 12/01/19 20:52 Docusate Sodium (Colace) 100 mg THREE TIMES A DAY NG 11/28/19 13:00 12/28/19 12:59 12/02/19 09:14 Epoetin William (Epoetin William(ESRD on dialysis)) 10,000 unit FRI-FRI-FRI SUBQ 12/01/19 21:00 02/29/20 20:59 12/01/19 21:55 Lansoprazole (Prevacid) 30 mg DAILY GT 11/28/19 10:45 12/28/19 10:44 12/02/19 09:14 Metoprolol Tartrate (Lopressor) 12.5 mg Q12HR GT 11/29/19 09:00 02/27/20 08:59 12/02/19 09:14 Sennosides (Senokot) 8.6 mg DAILY PRN ORAL Constipation 11/26/19 10:30 12/26/19 10:29 Assessment/Plan Assessment/Plan ASSESSMENT Prior acute hypoxemic hypercapnic respiratory failure requiring BiPAP Chronic CO2 retention Possible DAYANA Aspiration risk s/p recent PNA Dysphagia , s/p PEG , pulled out, s/p replacement of PEG 11/16 Acute kidney injury on chronic kidney disease, requiring start of HD 10/30 Anemia of chronic kidney disease Diabetes mellitus HTN PVD with hx of bilateral foot MTA Refusal of care PLAN OF CARE tele BiPAP at HS and prn , refusing again currently on O2 3 L via NC titrate O2, pulm toilet patient likely has DAYANA. recommend sleep study as OP CXR 11/28 Mild vascular congestion and small bilateral pleural effusions, slightly improved when compared to October 31, 2019. No pneumothorax.Cardiomegaly. Calcified aorta. ABG prn rapid COVID NGT, BiPAP prn and HS ethics eval if pt can refuse BiPAP ( patient with dementia, confusion), daughter wants BiPAP and unclear how he refused if was on restraints? in our opinion BiPAP should be on standing order and available in the facility when patient will be transferred need formal polysomnogram to be done as OP bioethics eval appreciated, done 11/25 . per bioethics: pt with diminished capacity and does not understand the consequences of refusing bi-pap, yet it seems inhumane to force him to endure it recommended that he should be discharged to the SNF on nasal canula with instructions not to be sent back to the acute care hospital for refusal to accept bi-pap. bioethics offered to have a family conference to explain the reasoning if the family is willing to speak with us. SW spoke with daughter and ( through RN director hr communications) re further GOC and code status 11/29 is considering DNR/DNI status but need to speak with Dr Chang first , not decided yet dc plan to SNF CM to discuss with family ( not want [facility]) completed Rx for PNA on prior admission Venous Duplex BLE 10/25 -> NGT on Eliquis aspir precautions, new BSSE pending TF via GT for now protein supplements HD as per nephro recs monitor volumes, renal paramerts, lytes s/p placement of permanent HD catheter R chest 11/07 s/p removal of temporary HD catheter by surgeon ECHO with pEF 55-60% rate control with BB, HR stable on chronic a/c , was on hold for PEG, Eliquis resumed BP management with CCB and BB, optimize as needed continue statin prior HgA1c -6.1 hold oral anti-glycemic monitor HH with goal to keep Hgb above 7 anemia w/up prior noted , heme on board on EPO GI prophayxlis supportive care case discussed and evaluated by supervising physician Jonathon Pabon MD 12/02/19 1120: Subjective Allergies: Coded Allergies: PENICILLINS (Verified Allergy, Unknown, 10/25/19) tolerated Ceftriaxone Uncoded Allergies: PENICILLIN (Allergy, Unknown, 11/23/19) Assessment/Plan Assessment/Plan Patient seen and examined with PROCESS IMPROVEMENT ANALYST. Agree with above A&P as it reflects our joint deliberations. Reema Hanna NP Dec 02, 2019 10:32 Jonathon Pabon MD Dec 02, 2019 11:20
--- NOTE | 2019-12-02 10:40 | Nephrology Progress Note ---
Assessment/Plan Problem List: (1) Respiratory distress (2) Diabetes mellitus (3) Hypertension (4) Renal failure (ARF), acute on chronic Assessment Patient's current problem is dyspnea Most likely volume overload versus pneumonitis Other conditions: Renal failure (ARF), acute on chronic h/o Metabolic acidosis h/oElectrolyte imbalance Hyponatremia and hyperkalemia h/oAnemia h/o CHF (congestive heart failure) Plan December 01: Labs reviewed. Medication reviewed. Creatinine higher. Hemodialysis for tomorrow. Continue rest. November 30: Patient was last dialyzed November 28. Not in any distress now. Appears to be more verbal today. Labs reviewed. Creatinine 3.8. Hemoglobin lower at 7.9. 1 dose of IV iron ordered. Subcu Epogen ordered. November 29: Dialyzed yesterday. Status quo. Will check chemistry panel tomorrow. Dialysis as needed. Continue per PMD and consultants. November 28: Due for dialysis and ultrafiltration today. Labs and medications reviewed. Blood pressure is stable. November 27: BNP rising. Not much urine output. Will dialyze and ultrafiltrate tomorrow. Labs reviewed. Continue to adjust blood pressure medications. Continue per consultants. November 26: Last dialysis November 24. Status quo. Labs reviewed. Medication list reviewed. Continue to monitor renal parameters. Dialysis as needed. November 25: Patient was dialyzed yesterday. Today is due for insertion of a GT tube. Patient pulled out his previous GT tube. Labs reviewed. Electrolytes abnormalities adjusted. Continue to monitor renal parameters. Patient is off BiPAP and on nasal cannula now. I believe that upon discharge the patient requires 2-3 times a week dialysis and ultrafiltration however upon discharge the patient needs to be followed by a correctional captain in the facility that he goes to to assess on a regular basis the need and frequency for dialysis. November 24 : Late note entry due to system problem at the [facility] today. Patient due for dialysis and ultrafiltration today. Labs reviewed. Chest x-ray results not available on EMR. Last dialysis November 21. Continue pulmonary toilet. Patient remains on BiPAP. Will check labs tomorrow. Subjective ROS Limited/Unobtainable: No Constitutional: Reports: malaise, weakness Objective Objective Last 24 Hour Vital Signs Date Time Temp Pulse Resp B/P (MAP) Pulse Ox O2 Delivery O2 Flow Rate FiO2 12/02/19 09:14 56 120/67 12/02/19 09:14 56 120/67 12/02/19 09:00 Nasal Cannula 2.0 12/02/19 08:00 71 12/02/19 08:00 96.8 56 20 120/67 (84) 98 12/02/19 07:00 98 Nasal Cannula 2.0 28 12/02/19 04:00 2.5 12/02/19 04:00 97.5 59 20 120/54 (76) 100 12/02/19 04:00 61 12/02/19 00:00 98.1 60 22 139/55 (83) 99 12/02/19 00:00 60 12/01/19 21:00 Nasal Cannula 2.0 12/01/19 20:53 78 128/65 12/01/19 20:53 78 128/65 12/01/19 20:00 2.5 12/01/19 20:00 60 12/01/19 20:00 99.0 66 20 121/76 (91) 99 12/01/19 19:15 98 Nasal Cannula 3.0 32 12/01/19 16:00 97.7 58 20 150/45 (80) 98 12/01/19 16:00 60 12/01/19 16:00 2.5 12/01/19 12:41 98 Nasal Cannula 3.0 32 12/01/19 12:00 97.0 69 18 127/42 (70) 99 12/01/19 12:00 2.5 12/01/19 12:00 60 Intake and Output 12/01/19 12/02/19 19:00 07:00 Intake Total 40 ml Balance 40 ml Tube Feeding 40 ml # Voids 3 2 # Bowel Movements 1 Laboratory Tests 12/02/19 04:31: White Blood Count 8.6, Red Blood Count 2.92L, Hemoglobin 8.1L, Hematocrit 27.6L , Mean Corpuscular Volume 94, Mean Corpuscular Hemoglobin 27.7, Mean Corpuscular Hemoglobin Concent 29.4L, Red Cell Distribution Width 15.6H, Platelet Count 220, Mean Platelet Volume 6.4L, Neutrophils (%) (Auto) 77.5H, Lymphocytes (%) (Auto) 16.2L, Monocytes (%) (Auto) 4.7, Eosinophils (%) (Auto) 1.2, Basophils (%) (Auto) 0.4, Sodium Level 137, Potassium Level 4.5, Chloride Level 98, Carbon Dioxide Level 34H, Anion Gap 5, Blood Urea Nitrogen 93H, Creatinine 4.2H, Estimat Glomerular Filtration Rate 13.7, Glucose Level 198H, Calcium Level 9.2, Phosphorus Level 4.8, Magnesium Level 3.4H, Total Bilirubin 0.3, Aspartate Amino Transf (AST/SGOT) 14L, Alanine Aminotransferase (ALT/SGPT) 10L, Alkaline Phosphatase 221H, Total Protein 6.9, Albumin 2.5L, Globulin 4.4, Albumin/Globulin Ratio 0.6L Height (Feet): 5 Height (Inches): 5.00 Weight (Pounds): 169 General Appearance: no apparent distress Cardiovascular: normal rate Respiratory/Chest: decreased breath sounds Abdomen: soft Objective No change Naveed Vanegas MD Dec 02, 2019 10:40
[2019-12-02 12:00] VITALS: BP 123/48
[2019-12-02 16:00] VITALS: BP 111/44
--- NOTE | 2019-12-02 19:44 | General Progress Note ---
Assessment/Plan Status Narrative Patient is awake alert febrile he was noted to be slightly short of breath is definitely not in any distress He is probably will need dialysis 3 times a week Defect dialysis is on a as needed basis is what prevents him from being accepted to the dialysis unit who wants the dialysis unit to be fully with It would be helpful if the leaf conditioner helper reports will indicates the patient is now permanent dialysis patient Repeat laboratory test will be done in a.m. AYUSH CHANG MD Subjective Constitutional: Reports: no symptoms HEENT: Reports: no symptoms Cardiovascular: Reports: no symptoms, other - Denies chest pain or shortness of breath to be reviewed. A little bit short of breath at rest Respiratory: Reports: SOB at rest Gastrointestinal/Abdominal: Reports: no symptoms Genitourinary: Reports: no symptoms Neurologic/Psychiatric: Reports: no symptoms Allergies: Coded Allergies: PENICILLINS (Verified Allergy, Unknown, 10/25/19) tolerated Ceftriaxone Uncoded Allergies: PENICILLIN (Allergy, Unknown, 11/23/19) Objective Last 24 Hour Vital Signs Date Time Temp Pulse Resp B/P (MAP) Pulse Ox O2 Delivery O2 Flow Rate FiO2 12/02/19 19:03 98 Nasal Cannula 2.0 28 12/02/19 16:00 57 12/02/19 16:00 2.5 12/02/19 16:00 96.9 57 20 111/44 (66) 98 12/02/19 12:00 2.5 12/02/19 12:00 97.7 56 18 123/48 (73) 97 12/02/19 12:00 56 12/02/19 09:14 56 120/67 12/02/19 09:14 56 120/67 12/02/19 09:00 2.5 12/02/19 09:00 Nasal Cannula 2.0 12/02/19 08:00 71 12/02/19 08:00 96.8 56 20 120/67 (84) 98 12/02/19 07:00 98 Nasal Cannula 2.0 28 12/02/19 04:00 2.5 12/02/19 04:00 97.5 59 20 120/54 (76) 100 12/02/19 04:00 61 12/02/19 00:00 98.1 60 22 139/55 (83) 99 12/02/19 00:00 60 12/01/19 21:00 Nasal Cannula 2.0 12/01/19 20:53 78 128/65 12/01/19 20:53 78 128/65 12/01/19 20:00 2.5 12/01/19 20:00 60 12/01/19 20:00 99.0 66 20 121/76 (91) 99 Intake and Output 12/01/19 12/02/19 19:00 07:00 Intake Total 80 ml Balance 80 ml Tube Feeding 80 ml # Voids 3 2 # Bowel Movements 1 Laboratory Tests 12/02/19 04:31: White Blood Count 8.6, Red Blood Count 2.92L, Hemoglobin 8.1L, Hematocrit 27.6L , Mean Corpuscular Volume 94, Mean Corpuscular Hemoglobin 27.7, Mean Corpuscular Hemoglobin Concent 29.4L, Red Cell Distribution Width 15.6H, Platelet Count 220, Mean Platelet Volume 6.4L, Neutrophils (%) (Auto) 77.5H, Lymphocytes (%) (Auto) 16.2L, Monocytes (%) (Auto) 4.7, Eosinophils (%) (Auto) 1.2, Basophils (%) (Auto) 0.4, Sodium Level 137, Potassium Level 4.5, Chloride Level 98, Carbon Dioxide Level 34H, Anion Gap 5, Blood Urea Nitrogen 93H, Creatinine 4.2H, Estimat Glomerular Filtration Rate 13.7, Glucose Level 198H, Calcium Level 9.2, Phosphorus Level 4.8, Magnesium Level 3.4H, Total Bilirubin 0.3, Aspartate Amino Transf (AST/SGOT) 14L, Alanine Aminotransferase (ALT/SGPT) 10L, Alkaline Phosphatase 221H, Total Protein 6.9, Albumin 2.5L, Globulin 4.4, Albumin/Globulin Ratio 0.6L Height (Feet): 5 Height (Inches): 5.00 Weight (Pounds): 169 General Appearance: no apparent distress, alert EENT: normal ENT inspection Neck: supple Cardiovascular: normal rate, regular rhythm, no gallop/murmur, no JVD Respiratory/Chest: lungs clear, no respiratory distress Abdomen: normal bowel sounds, non tender, soft, no organomegaly, no mass Neurologic: alert, responsive Ayush Chang MD Dec 02, 2019 19:44
[2019-12-02 20:00] VITALS: BP 122/59
[2019-12-02] MEDS: Dyna-Hex 2% Top Sol 2oz TOPIC SCH (21:15)
[2019-12-03] VITALS (8 sets, daily range): BP systolic 115–144; BP diastolic 44–88
[2019-12-03 07:13] LABS: ALBUMIN 2.5 G/DL (3.4-5.0); ALBUMIN/GLOBULIN RATIO 0.6 (1.0-2.7); BILIRUBIN,TOTAL 0.3 MG/DL (0.2-1.0); CALCIUM 9.4 MG/DL (8.5-10.1); CREATININE 5.1 MG/DL (0.55-1.30); PHOSPHORUS 5.1 MG/DL (2.5-4.9); POTASSIUM 4.5 MMOL/L (3.5-5.1)
[2019-12-03 07:21] LABS: HEMATOCRIT 25.6 % (42.0-52.0); HEMOGLOBIN 7.6 G/DL (14.2-18.0); MEAN CORPUSCULAR VOLUME 93 FL (80-99); PLATELET COUNT 234 K/UL (150-450); RED BLOOD COUNT 2.74 M/UL (4.70-6.10); RED CELL DISTRIBUTION WIDTH 15.3 % (11.6-14.8)
--- NOTE | 2019-12-03 08:31 | Hematology/Onc Progress Note ---
Assessment/Plan Assessment/Plan ASSESSMENT AND RECOMMENDATIONS: # Anemia of chronic disease due to underlying chronic medical issues, multifactorial --> Anemia w/u has been reviewed. --> no evidence of hemolysis is noted, peripheral smear has been reviewed --> hgb goal is >7, transfuse as needed --> currently remains stable, occult blood negative --> hgb 8.4->8.6->8.3->8->8.2->9.2-->9.2->8.9-->8.1-->8.7>9.4-->8.7-->8->7.8-> 7.5-->7.4-->7.5-->8.1-->8-->8.1-->9.5->7.9-->7.6 --> some blood loss due to hematuria after inflated reyes pulled 8/6 am --> EPOGEN Started # Thrombocytopenia is likely due to infection --> plt trend 180-->149-->274 --> on abx as needed --> hep and hiv neg #. Leukocytosis with underlying infectionv stress reaction HISTORY --> per id and better --> for infection, ABX ctx/vanc-->off --> wbc 10-->5.9 # Acute kidney injury r/o potential reversible component --> reviewed meds, those that are renally cleared removed --> as per renal recs, appreciated --> cr 3.5-->4.2-->3.4->3.3 --> Hd started and dw renal # Hypertension, essential --> sbp goal is <140, consider anti-htn as needed --> currently started on hyralazine 25mg po q6h prn sbp >140 # CHF - hx of CHf --> diuresis with lasix as needed --> cardiology recs appreciated prior adm #. Bilateral lower extremity amputee, metatarsal several years ago --> stable #. Atrial fibrillation --> as per cards recs #. Dysphagia s/p peg --> peg pulled out and now with gtube 11/25 #. Hyperkalemia --> kayxelate as needed #. Agitation requires restraints #. Dvt ppx scds --> xarelto=> off-->eliquis-->off The time the note was entered does not necessarily correspond to the time the patient was seen. GREATLY APPRECIATE CONSULTATION. Subjective Constitutional: Denies: no symptoms, chills, fever, malaise, weakness, other HEENT: Denies: no symptoms, eye pain, blurred vision, tearing, double vision, ear pain, ear discharge, nose pain, nose congestion, throat pain, throat swelling, mouth pain, mouth swelling, other Cardiovascular: Denies: no symptoms, chest pain, edema, irregular heart rate, lightheadedness, palpitations, syncope, other Respiratory: Denies: no symptoms, cough, shortness of breath, SOB with excertion, SOB at rest, sputum, wheezing, other Gastrointestinal/Abdominal: Denies: no symptoms, abdomen distended, abdominal pain, black stools, tarry stools, blood in stool, constipated, diarrhea, difficulty swallowing, nausea, poor appetite, poor fluid intake, rectal bleeding , vomiting, other Genitourinary: Denies: no symptoms, burning, discharge, frequency, flank pain, hematuria, incontinence, pain, urgency, other Neurologic/Psychiatric: Denies: no symptoms, anxiety, depressed, emotional problems, headache, numbness, paresthesia, pre-existing deficit, seizure, tingling, tremors, weakness, other Hematologic/Lymphatic: Denies: no symptoms, anemia, easy bleeding, easy bruising, adenopathy, other Allergies: Coded Allergies: PENICILLINS (Verified Allergy, Unknown, 10/25/19) tolerated Ceftriaxone Uncoded Allergies: PENICILLIN (Allergy, Unknown, 11/23/19) Subjective 11/23 came back from [facility] due to lack of bipap capability, hgb 7.5 11/24 labs reviewed, remains sob, with a hgb 8.1, no bleeding, jag salas, hold off prbc 11/25 labs are noted, for egd and peg in the am, jag salas, on nc 11/27 getting 3l nc overnight, has been refusing bipap unfortunately, hgb stable 11/28 labs noted, with gtube feeds, again this am refusing bipap 11/29 is on 2l nc, with gtube feeds, hgb 9.5, no bleeding 11/30 labs are noted, no bleeding, on gtube feeds, on 2l nc 12/01 meds noted, no bleeding, hgb 7.9 yesterday, on nc 12/02 is on nepro and on 2l, hgb 7.6, c/o itching, have started benadryl q 8h prn Objective Objective Current Medications Medications (Trade) Dose Ordered Sig/Cammy Route PRN Reason Start Time Stop Time Status Last Admin Dose Admin Albuterol/ Ipratropium (Albuterol/ Ipratropium) 3 ml Q4H PRN HHN Shortness of Breath 11/28/19 08:30 12/03/19 08:29 Allopurinol (allopurinoL) 300 mg DAILY ORAL 11/26/19 10:30 12/24/19 10:29 12/02/19 09:14 Amlodipine Besylate (Norvasc) 5 mg Q12HR GT 11/28/19 21:00 12/24/19 10:29 12/02/19 09:14 Apixaban (Eliquis) 2.5 mg BID ORAL 11/26/19 10:30 02/22/20 10:29 12/02/19 17:50 Atorvastatin Calcium (Lipitor) 10 mg BEDTIME ORAL 11/26/19 21:00 02/22/20 20:59 12/02/19 21:15 Chlorhexidine Gluconate (Yi-Hex 2%) 1 applic DAILY@1999 TOPIC 11/26/19 20:00 02/24/20 19:59 12/02/19 21:15 Diphenhydramine HCl (Benadryl) 25 mg Q8HR PRN ORAL Itching 12/03/19 08:30 01/02/20 08:29 UNV Docusate Sodium (Colace) 100 mg THREE TIMES A DAY NG 11/28/19 13:00 12/28/19 12:59 12/02/19 17:50 Epoetin William (Epoetin William(ESRD on dialysis)) 10,000 unit FRI-FRI-FRI SUBQ 12/01/19 21:00 02/29/20 20:59 12/01/19 21:55 Lansoprazole (Prevacid) 30 mg DAILY GT 11/28/19 10:45 12/28/19 10:44 12/02/19 09:14 Metoprolol Tartrate (Lopressor) 12.5 mg Q12HR GT 11/29/19 09:00 02/27/20 08:59 12/02/19 21:15 Sennosides (Senokot) 8.6 mg DAILY PRN ORAL Constipation 11/26/19 10:30 12/26/19 10:29 Last 24 Hour Vital Signs Date Time Temp Pulse Resp B/P (MAP) Pulse Ox O2 Delivery O2 Flow Rate FiO2 12/03/19 04:00 2.5 12/03/19 04:00 63 12/03/19 04:00 98.3 80 20 144/88 (106) 97 12/03/19 00:00 97.9 78 20 123/56 (78) 100 12/02/19 21:15 78 116/59 12/02/19 21:00 Nasal Cannula 2.0 12/02/19 21:00 78 116/59 12/02/19 20:00 59 12/02/19 20:00 2.5 12/02/19 20:00 98.9 62 20 122/59 (80) 97 12/02/19 19:03 98 Nasal Cannula 2.0 28 12/02/19 16:00 57 12/02/19 16:00 2.5 12/02/19 16:00 96.9 57 20 111/44 (66) 98 12/02/19 12:00 2.5 12/02/19 12:00 97.7 56 18 123/48 (73) 97 12/02/19 12:00 56 12/02/19 09:14 56 120/67 12/02/19 09:14 56 120/67 12/02/19 09:00 2.5 12/02/19 09:00 Nasal Cannula 2.0 12/02/19 08:00 71 12/02/19 08:00 96.8 56 20 120/67 (84) 98 12/02/19 07:00 98 Nasal Cannula 2.0 28 12/02/19 04:00 2.5 12/02/19 04:00 97.5 59 20 120/54 (76) 100 12/02/19 04:00 61 12/02/19 00:00 98.1 60 22 139/55 (83) 99 12/02/19 00:00 60 12/01/19 21:00 Nasal Cannula 2.0 12/01/19 20:53 78 128/65 9/9/20 20:53 78 128/65 12/01/19 20:00 2.5 12/01/19 20:00 60 12/01/19 20:00 99.0 66 20 121/76 (91) 99 12/01/19 19:15 98 Nasal Cannula 3.0 32 12/01/19 16:00 97.7 58 20 150/45 (80) 98 12/01/19 16:00 60 12/01/19 16:00 2.5 12/01/19 12:41 98 Nasal Cannula 3.0 32 12/01/19 12:00 97.0 69 18 127/42 (70) 99 12/01/19 12:00 2.5 12/01/19 12:00 60 12/01/19 09:42 57 136/46 12/01/19 09:42 57 136/46 12/01/19 09:00 Nasal Cannula 2.0 12/01/19 09:00 2.5 Intake and Output 12/02/19 12/03/19 19:00 07:00 Intake Total 440 ml 40 ml Balance 440 ml 40 ml Tube Feeding 440 ml 40 ml # Voids 2 3 Labs Test 12/01/19 05:45 12/02/19 04:31 12/03/19 06:05 White Blood Count 11.0 K/UL (4.8-10.8) 8.6 K/UL (4.8-10.8) 9.0 K/UL (4.8-10.8) Red Blood Count 2.84 M/UL (4.70-6.10) 2.92 M/UL (4.70-6.10) 2.74 M/UL (4.70-6.10) Hemoglobin 7.9 G/DL (14.2-18.0) 8.1 G/DL (14.2-18.0) 7.6 G/DL (14.2-18.0) Hematocrit 26.5 % (42.0-52.0) 27.6 % (42.0-52.0) 25.6 % (42.0-52.0) Mean Corpuscular Volume 93 FL (80-99) 94 FL (80-99) 93 FL (80-99) Mean Corpuscular Hemoglobin 27.9 PG (27.0-31.0) 27.7 PG (27.0-31.0) 27.8 PG (27.0-31.0) Mean Corpuscular Hemoglobin Concent 30.0 G/DL (32.0-36.0) 29.4 G/DL (32.0-36.0) 29.8 G/DL (32.0-36.0) Red Cell Distribution Width 15.2 % (11.6-14.8) 15.6 % (11.6-14.8) 15.3 % (11.6-14.8) Platelet Count 205 K/UL (150-450) 220 K/UL (150-450) 234 K/UL (150-450) Mean Platelet Volume 6.6 FL (6.5-10.1) 6.4 FL (6.5-10.1) 7.2 FL (6.5-10.1) Neutrophils (%) (Auto) % (45.0-75.0) 77.5 % (45.0-75.0) % (45.0-75.0) Lymphocytes (%) (Auto) % (20.0-45.0) 16.2 % (20.0-45.0) % (20.0-45.0) Monocytes (%) (Auto) % (1.0-10.0) 4.7 % (1.0-10.0) % (1.0-10.0) Eosinophils (%) (Auto) % (0.0-3.0) 1.2 % (0.0-3.0) % (0.0-3.0) Basophils (%) (Auto) % (0.0-2.0) 0.4 % (0.0-2.0) % (0.0-2.0) Differential Total Cells Counted 100 Neutrophils % (Manual) 85 % (45-75) Lymphocytes % (Manual) 12 % (20-45) Monocytes % (Manual) 1 % (1-10) Eosinophils % (Manual) 2 % (0-3) Basophils % (Manual) 0 % (0-2) Band Neutrophils 0 % (0-8) Platelet Estimate Adequate Platelet Morphology Normal Hypochromasia 1+ Anisocytosis 1+ Sodium Level 135 MMOL/L (136-145) 137 MMOL/L (136-145) 136 MMOL/L (136-145) Potassium Level 4.1 MMOL/L (3.5-5.1) 4.5 MMOL/L (3.5-5.1) 4.5 MMOL/L (3.5-5.1) Chloride Level 98 MMOL/L (98-107) 98 MMOL/L (98-107) 98 MMOL/L (98-107) Carbon Dioxide Level 35 MMOL/L (21-32) 34 MMOL/L (21-32) 37 MMOL/L (21-32) Anion Gap 3 mmol/L (5-15) 5 mmol/L (5-15) 2 mmol/L (5-15) Blood Urea Nitrogen 77 mg/dL (7-18) 93 mg/dL (7-18) 118 mg/dL (7-18) Creatinine 3.8 MG/DL (0.55-1.30) 4.2 MG/DL (0.55-1.30) 5.1 MG/DL (0.55-1.30) Estimat Glomerular Filtration Rate 15.4 mL/min (>60) 13.7 mL/min (>60) 10.9 mL/min (>60) Glucose Level 227 MG/DL (74-106) 198 MG/DL (74-106) 222 MG/DL (74-106) Calcium Level 8.8 MG/DL (8.5-10.1) 9.2 MG/DL (8.5-10.1) 9.4 MG/DL (8.5-10.1) Phosphorus Level 4.2 MG/DL (2.5-4.9) 4.8 MG/DL (2.5-4.9) 5.1 MG/DL (2.5-4.9) Magnesium Level 2.9 MG/DL (1.8-2.4) 3.4 MG/DL (1.8-2.4) 3.5 MG/DL (1.8-2.4) Total Bilirubin 0.4 MG/DL (0.2-1.0) 0.3 MG/DL (0.2-1.0) 0.3 MG/DL (0.2-1.0) Aspartate Amino Transf (AST/SGOT) 15 U/L (15-37) 14 U/L (15-37) 15 U/L (15-37) Alanine Aminotransferase (ALT/SGPT) 10 U/L (12-78) 10 U/L (12-78) 13 U/L (12-78) Alkaline Phosphatase 197 U/L (46-116) 221 U/L (46-116) 228 U/L (46-116) Total Protein 6.5 G/DL (6.4-8.2) 6.9 G/DL (6.4-8.2) 6.6 G/DL (6.4-8.2) Albumin 2.4 G/DL (3.4-5.0) 2.5 G/DL (3.4-5.0) 2.5 G/DL (3.4-5.0) Globulin 4.1 g/dL 4.4 g/dL 4.1 g/dL Albumin/Globulin Ratio 0.6 (1.0-2.7) 0.6 (1.0-2.7) 0.6 (1.0-2.7) Uric Acid 4.8 MG/DL (2.6-7.2) Height (Feet): 5 Height (Inches): 5.00 Weight (Pounds): 169 Objective GENERAL: Not in acute distress. HEENT: ncat PULMONARY: Decreased breath sounds. ++ bipap v nc+ CHEST: ++permacath right chest CARDIOVASCULAR: Regular rate. No S3 or S4. ABDOMEN: Soft, nontender, nondistended.++peg EXTREMITIES: 1+ edema. No cyanosis, swelling, or edema. 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 Melvin Rizzo MD Dec 03, 2019 08:30
--- NOTE | 2019-12-03 08:40 | General Progress Note ---
Assessment/Plan Problem List: (1) Hypertension ICD Codes: I10 - Essential (primary) hypertension SNOMED: 22332761 (2) Diabetes mellitus ICD Codes: E11.9 - Type 2 diabetes mellitus without complications SNOMED: 60747887 (3) Cholelithiasis ICD Codes: K80.20 - Calculus of gallbladder without cholecystitis without obstruction SNOMED: 970736325 Assessment/Plan: dysphagia s/p GT placement GTF monitor for residuals fu H&H prn blood transfusion Subjective ROS Limited/Unobtainable: No Allergies: Coded Allergies: PENICILLINS (Verified Allergy, Unknown, 10/25/19) tolerated Ceftriaxone Uncoded Allergies: PENICILLIN (Allergy, Unknown, 11/23/19) Objective Last 24 Hour Vital Signs Date Time Temp Pulse Resp B/P (MAP) Pulse Ox O2 Delivery O2 Flow Rate FiO2 12/03/19 08:00 98.1 61 20 116/83 (94) 98 12/03/19 04:00 2.5 12/03/19 04:00 63 12/03/19 04:00 98.3 80 20 144/88 (106) 97 12/03/19 00:00 97.9 78 20 123/56 (78) 100 12/02/19 21:15 78 116/59 12/02/19 21:00 Nasal Cannula 2.0 12/02/19 21:00 78 116/59 12/02/19 20:00 59 12/02/19 20:00 2.5 12/02/19 20:00 98.9 62 20 122/59 (80) 97 12/02/19 19:03 98 Nasal Cannula 2.0 28 12/02/19 16:00 57 12/02/19 16:00 2.5 12/02/19 16:00 96.9 57 20 111/44 (66) 98 12/02/19 12:00 2.5 12/02/19 12:00 97.7 56 18 123/48 (73) 97 12/02/19 12:00 56 12/02/19 09:14 56 120/67 12/02/19 09:14 56 120/67 12/02/19 09:00 2.5 12/02/19 09:00 Nasal Cannula 2.0 Intake and Output 12/02/19 12/03/19 19:00 07:00 Intake Total 440 ml 40 ml Balance 440 ml 40 ml Tube Feeding 440 ml 40 ml # Voids 2 3 Laboratory Tests 12/03/19 06:05: White Blood Count 9.0, Red Blood Count 2.74L, Hemoglobin 7.6L, Hematocrit 25.6L , Mean Corpuscular Volume 93, Mean Corpuscular Hemoglobin 27.8, Mean Corpuscular Hemoglobin Concent 29.8L, Red Cell Distribution Width 15.3H, Platelet Count 234, Mean Platelet Volume 7.2, Neutrophils (%) (Auto) , Lymphocytes (%) (Auto) , Monocytes (%) (Auto) , Eosinophils (%) (Auto) , Basophils (%) (Auto) , Neutrophils % (Manual) [Pending], Lymphocytes % (Manual) [Pending], Platelet Estimate [Pending], Platelet Morphology [Pending], Sodium Level 136, Potassium Level 4.5, Chloride Level 98, Carbon Dioxide Level 37H, Anion Gap 2L, Blood Urea Nitrogen 118H, Creatinine 5.1H, Estimat Glomerular Filtration Rate 10.9, Glucose Level 222H, Uric Acid 4.8, Calcium Level 9.4, Phosphorus Level 5.1H, Magnesium Level 3.5H, Total Bilirubin 0.3, Aspartate Amino Transf (AST/SGOT) 15, Alanine Aminotransferase (ALT/SGPT) 13, Alkaline Phosphatase 228H, Total Protein 6.6, Albumin 2.5L, Globulin 4.1, Albumin/ Globulin Ratio 0.6L Height (Feet): 5 Height (Inches): 5.00 Weight (Pounds): 169 General Appearance: no apparent distress EENT: normal ENT inspection Neck: supple Cardiovascular: normal rate Respiratory/Chest: decreased breath sounds Abdomen: normal bowel sounds, non tender, soft Extremities: non-tender Lawrence Humphreys MD Dec 03, 2019 08:40
[2019-12-03] MEDS: Metoprolol Tartrate 12.5mg TAB GT SCH ×3 (09:00→23:38)
[2019-12-03] MEDS: Docusate 100mg/10ml Liq NG SCH ×3 (09:21→17:12)
[2019-12-03] MEDS: Eliquis 2.5mg tablet ORAL SCH ×2 (09:22→17:12)
[2019-12-03] MEDS: DiphenhydrAMINE 25mg/10ml Elixir NG PRN (09:34)
--- NOTE | 2019-12-03 11:09 | Pulmonology Progress Note ---
Jeremi Hannaet SALES PERSON 12/03/19 1109: Subjective ROS Limited/Unobtainable: Yes Allergies: Coded Allergies: PENICILLINS (Verified Allergy, Unknown, 10/25/19) tolerated Ceftriaxone Uncoded Allergies: PENICILLIN (Allergy, Unknown, 11/23/19) All Systems: reviewed and negative except above Subjective on tele off BiPAP and continued to decline it on O2 via NC, pulse ox stable no signs of resp distress bioethics eval was done 11/25 SHERRIE spoke with daughter and 11/29 SHERRIE discussed with daughter bioethics recs and further GOC and code status remains full code in search of new SNF currently Objective Last 24 Hour Vital Signs Date Time Temp Pulse Resp B/P (MAP) Pulse Ox O2 Delivery O2 Flow Rate FiO2 12/03/19 10:06 98 Nasal Cannula 2.0 28 12/03/19 09:00 61 116/83 12/03/19 09:00 61 116/83 12/03/19 08:00 98.1 61 20 116/83 (94) 98 12/03/19 08:00 2.0 12/03/19 07:50 61 12/03/19 04:00 2.5 12/03/19 04:00 63 12/03/19 04:00 98.3 80 20 144/88 (106) 97 12/03/19 00:00 97.9 78 20 123/56 (78) 100 12/02/19 21:15 78 116/59 12/02/19 21:00 Nasal Cannula 2.0 12/02/19 21:00 78 116/59 12/02/19 20:00 59 12/02/19 20:00 2.5 12/02/19 20:00 98.9 62 20 122/59 (80) 97 12/02/19 19:03 98 Nasal Cannula 2.0 28 12/02/19 16:00 57 12/02/19 16:00 2.5 12/02/19 16:00 96.9 57 20 111/44 (66) 98 12/02/19 12:00 2.5 12/02/19 12:00 97.7 56 18 123/48 (73) 97 12/02/19 12:00 56 Intake and Output 12/02/19 12/03/19 19:00 07:00 Intake Total 440 ml 40 ml Balance 440 ml 40 ml Tube Feeding 440 ml 40 ml # Voids 2 3 Objective General Appearance: alert , confused, Romanian speaking Lines, tubes and drains: peripheral HEENT: normocephalic, atraumatic, anicteric, O2 via NC Neck: supple Respiratory/Chest: lungs clear, no respiratory distress Cardiovascular/Chest: normal rate Abdomen: non tender, soft, feeding tube - G tube Extremities: BL foot TMA Neurologic: abnormal gait, alert, confused, responsive Musculoskeletal: atrophy - BLE Laboratory Tests 12/03/19 06:05: White Blood Count 9.0, Red Blood Count 2.74L, Hemoglobin 7.6L, Hematocrit 25.6L , Mean Corpuscular Volume 93, Mean Corpuscular Hemoglobin 27.8, Mean Corpuscular Hemoglobin Concent 29.8L, Red Cell Distribution Width 15.3H, Platelet Count 234, Mean Platelet Volume 7.2, Neutrophils (%) (Auto) , Lymphocytes (%) (Auto) , Monocytes (%) (Auto) , Eosinophils (%) (Auto) , Basophils (%) (Auto) , Neutrophils % (Manual) [Pending], Lymphocytes % (Manual) [Pending], Platelet Estimate [Pending], Platelet Morphology [Pending], Sodium Level 136, Potassium Level 4.5, Chloride Level 98, Carbon Dioxide Level 37H, Anion Gap 2L, Blood Urea Nitrogen 118H, Creatinine 5.1H, Estimat Glomerular Filtration Rate 10.9, Glucose Level 222H, Uric Acid 4.8, Calcium Level 9.4, Phosphorus Level 5.1H, Magnesium Level 3.5H, Total Bilirubin 0.3, Aspartate Amino Transf (AST/SGOT) 15, Alanine Aminotransferase (ALT/SGPT) 13, Alkaline Phosphatase 228H, Total Protein 6.6, Albumin 2.5L, Globulin 4.1, Albumin/ Globulin Ratio 0.6L Current Medications Medications (Trade) Dose Ordered Sig/Cammy Route PRN Reason Start Time Stop Time Status Last Admin Dose Admin Allopurinol (allopurinoL) 300 mg DAILY ORAL 11/26/19 10:30 12/24/19 10:29 12/03/19 09:22 Amlodipine Besylate (Norvasc) 5 mg Q12HR GT 11/28/19 21:00 12/24/19 10:29 12/02/19 09:14 Apixaban (Eliquis) 2.5 mg BID ORAL 11/26/19 10:30 02/22/20 10:29 12/03/19 09:22 Atorvastatin Calcium (Lipitor) 10 mg BEDTIME ORAL 11/26/19 21:00 02/22/20 20:59 12/02/19 21:15 Chlorhexidine Gluconate (Yi-Hex 2%) 1 applic DAILY@2000 TOPIC 11/26/19 20:00 02/24/20 19:59 12/02/19 21:15 Dextrose (Dextrose 50%) 25 ml Q30M PRN IV Hypoglycemia 12/03/19 10:30 03/02/20 10:29 Dextrose (Dextrose 50%) 50 ml Q30M PRN IV Hypoglycemia 12/03/19 10:30 03/02/20 10:29 Diphenhydramine HCl (Benadryl) 25 mg Q8H PRN NG Itching 12/03/19 09:30 01/02/20 09:29 12/03/19 09:34 Docusate Sodium (Colace) 100 mg THREE TIMES A DAY NG 11/28/19 13:00 12/28/19 12:59 12/03/19 09:21 Epoetin William (Epoetin William(ESRD on dialysis)) 10,000 unit FRI-FRI-FRI SUBQ 12/01/19 21:00 02/29/20 20:59 12/01/19 21:55 Insulin Aspart (NovoLOG) Q6HR SUBQ 12/03/19 12:00 03/02/20 11:59 Lansoprazole (Prevacid) 30 mg DAILY GT 11/28/19 10:45 12/28/19 10:44 12/03/19 09:21 Metoprolol Tartrate (Lopressor) 12.5 mg Q12HR GT 11/29/19 09:00 02/27/20 08:59 12/02/19 21:15 Sennosides (Senokot) 8.6 mg DAILY PRN ORAL Constipation 11/26/19 10:30 12/26/19 10:29 Assessment/Plan Assessment/Plan ASSESSMENT Prior acute hypoxemic hypercapnic respiratory failure requiring BiPAP Chronic CO2 retention Possible DAYANA Aspiration risk s/p recent PNA Dysphagia , s/p PEG , pulled out, s/p replacement of PEG 11/16 Acute kidney injury on chronic kidney disease, requiring start of HD 10/30 Anemia of chronic kidney disease Diabetes mellitus HTN PVD with hx of bilateral foot MTA Refusal of care PLAN OF CARE tele BiPAP at HS and prn , refusing again currently on O2 3 L via NC titrate O2, pulm toilet patient likely has DAYANA. recommend sleep study as OP CXR 11/28 mild vascular congestion and small bilateral pleural effusions, slightly improved when compared to October 31, 2019. No pneumothorax. Cardiomegaly. Calcified aorta. ABG prn rapid COVID NGT, BiPAP prn and HS ethics eval if pt can refuse BiPAP ( patient with dementia, confusion), daughter wants BiPAP and unclear how he refused if was on restraints? in our opinion BiPAP should be on standing order and available in the facility when patient will be transferred need formal polysomnogram to be done as OP bioethics eval appreciated, done 11/25 . per bioethics: pt with diminished capacity and does not understand the consequences of refusing bi-pap, yet it seems inhumane to force him to endure it recommended that he should be discharged to the SNF on nasal canula with instructions not to be sent back to the acute care hospital for refusal to accept bi-pap. bioethics offered to have a family conference to explain the reasoning if the family is willing to speak with us. SHERRIE spoke with daughter and ( through RN horse shoer) re further GOC and code status 11/29 is considering DNR/DNI status but need to speak with Dr Chang first , not decided yet dc plan to SNF ; SHERRIE discussed with family ( not want [facility]) completed Rx for PNA on prior admission Venous Duplex BLE 10/25 -> NGT on Eliquis aspir precautions, new BSSE pending TF via GT for now protein supplements HD as per nephro recs monitor volumes, renal paramerts, lytes s/p placement of permanent HD catheter R chest 11/07 s/p removal of temporary HD catheter by surgeon ECHO with pEF 55-60% rate control with BB, HR stable on chronic a/c , was on hold for PEG, Eliquis resumed BP management with CCB and BB, optimize as needed continue statin prior HgA1c -6.1 hold oral anti-glycemic monitor HH with goal to keep Hgb above 7 anemia w/up prior noted , heme on board on EPO GI prophayxlis supportive care case discussed and evaluated by supervising physician Jonathon Pabon MD 12/03/19 1625: Subjective Allergies: Coded Allergies: PENICILLINS (Verified Allergy, Unknown, 10/25/19) tolerated Ceftriaxone Uncoded Allergies: PENICILLIN (Allergy, Unknown, 11/23/19) Assessment/Plan Assessment/Plan Patient seen and examined with SALES PERSON. Agree with above A&P as it reflects our joint deliberations. D/W Sw and daughter Re: DNAR/DNI status, patient declines NIPPV. Message left for Reema Guajardo SALES PERSON Dec 03, 2019 11:09 Jonathon Pabon MD Dec 03, 2019 16:25
[2019-12-03] MEDS: NovoLOG Insulin Flexpen SUBQ SCH ×2 (12:07→17:14)
--- NOTE | 2019-12-03 12:44 | Nephrology Progress Note ---
Assessment/Plan Problem List: (1) Respiratory distress (2) Diabetes mellitus (3) Hypertension (4) Renal failure (ARF), acute on chronic Assessment Patient's current problem is dyspnea Most likely volume overload versus pneumonitis Other conditions: Renal failure (ARF), acute on chronic h/o Metabolic acidosis h/oElectrolyte imbalance Hyponatremia and hyperkalemia h/oAnemia h/o CHF (congestive heart failure) Plan December 02: Due for dialysis today. Blood pressure medications on hold. Albumin 25% for BP support during dialysis. Continue to monitor renal parameters. December 01: Labs reviewed. Medication reviewed. Creatinine higher. Hemodialysis for tomorrow. Continue rest. November 30: Patient was last dialyzed November 28. Not in any distress now. Appears to be more verbal today. Labs reviewed. Creatinine 3.8. Hemoglobin lower at 7.9. 1 dose of IV iron ordered. Subcu Epogen ordered. November 29: Dialyzed yesterday. Status quo. Will check chemistry panel tomorrow. Dialysis as needed. Continue per PMD and consultants. November 28: Due for dialysis and ultrafiltration today. Labs and medications reviewed. Blood pressure is stable. November 27: BNP rising. Not much urine output. Will dialyze and ultrafiltrate tomorrow. Labs reviewed. Continue to adjust blood pressure medications. Continue per consultants. November 26: Last dialysis November 24. Status quo. Labs reviewed. Medication list reviewed. Continue to monitor renal parameters. Dialysis as needed. November 25: Patient was dialyzed yesterday. Today is due for insertion of a GT tube. Patient pulled out his previous GT tube. Labs reviewed. Electrolytes abnormalities adjusted. Continue to monitor renal parameters. Patient is off BiPAP and on nasal cannula now. I believe that upon discharge the patient requires 2-3 times a week dialysis and ultrafiltration however upon discharge the patient needs to be followed by a rock picker in the facility that he goes to to assess on a regular basis the need and frequency for dialysis. November 24 : Late note entry due to system problem at the [facility] today. Patient due for dialysis and ultrafiltration today. Labs reviewed. Chest x-ray results not available on EMR. Last dialysis November 21. Continue pulmonary toilet. Patient remains on BiPAP. Will check labs tomorrow. Subjective ROS Limited/Unobtainable: No Constitutional: Reports: malaise Objective Objective Last 24 Hour Vital Signs Date Time Temp Pulse Resp B/P (MAP) Pulse Ox O2 Delivery O2 Flow Rate FiO2 12/03/19 10:06 98 Nasal Cannula 2.0 28 12/03/19 09:00 Nasal Cannula 2.0 12/03/19 09:00 61 116/83 12/03/19 09:00 61 116/83 12/03/19 08:00 98.1 61 20 116/83 (94) 98 12/03/19 08:00 2.0 12/03/19 07:50 98 Nasal Cannula 2.0 28 12/03/19 07:50 61 12/03/19 04:00 2.5 12/03/19 04:00 63 12/03/19 04:00 98.3 80 20 144/88 (106) 97 12/03/19 00:00 97.9 78 20 123/56 (78) 100 12/02/19 21:15 78 116/59 12/02/19 21:00 Nasal Cannula 2.0 12/02/19 21:00 78 116/59 12/02/19 20:00 59 12/02/19 20:00 2.5 12/02/19 20:00 98.9 62 20 122/59 (80) 97 12/02/19 19:03 98 Nasal Cannula 2.0 28 12/02/19 16:00 57 12/02/19 16:00 2.5 12/02/19 16:00 96.9 57 20 111/44 (66) 98 Intake and Output 12/02/19 12/03/19 19:00 07:00 Intake Total 440 ml 40 ml Balance 440 ml 40 ml Tube Feeding 440 ml 40 ml # Voids 2 3 Laboratory Tests 12/03/19 06:05: White Blood Count 9.0, Red Blood Count 2.74L, Hemoglobin 7.6L, Hematocrit 25.6L , Mean Corpuscular Volume 93, Mean Corpuscular Hemoglobin 27.8, Mean Corpuscular Hemoglobin Concent 29.8L, Red Cell Distribution Width 15.3H, Platelet Count 234, Mean Platelet Volume 7.2, Neutrophils (%) (Auto) , Lymphocytes (%) (Auto) , Monocytes (%) (Auto) , Eosinophils (%) (Auto) , Basophils (%) (Auto) , Differential Total Cells Counted 100, Neutrophils % ( Manual) 76H, Lymphocytes % (Manual) 17L, Monocytes % (Manual) 3, Eosinophils % ( Manual) 2, Basophils % (Manual) 2, Band Neutrophils 0, Platelet Estimate Adequate, Platelet Morphology Normal, Hypochromasia 3+, Anisocytosis 1+, Sodium Level 136, Potassium Level 4.5, Chloride Level 98, Carbon Dioxide Level 37H, Anion Gap 2L, Blood Urea Nitrogen 118H, Creatinine 5.1H, Estimat Glomerular Filtration Rate 10.9, Glucose Level 222H, Uric Acid 4.8, Calcium Level 9.4, Phosphorus Level 5.1H, Magnesium Level 3.5H, Total Bilirubin 0.3, Aspartate Amino Transf (AST/SGOT) 15, Alanine Aminotransferase (ALT/SGPT) 13, Alkaline Phosphatase 228H, Total Protein 6.6, Albumin 2.5L, Globulin 4.1, Albumin/ Globulin Ratio 0.6L 12/03/19 11:35: POC Whole Blood Glucose 219H Height (Feet): 5 Height (Inches): 5.00 Weight (Pounds): 169 General Appearance: no apparent distress Cardiovascular: normal rate Respiratory/Chest: decreased breath sounds Abdomen: soft Objective No change Naveed Vanegas MD Dec 03, 2019 12:44
[2019-12-03] MEDS: Epoetin Alfa-EPBX(ESRD on dialysis)10,000 unit/ml vial SUBQ SCH (23:38)
[2019-12-03] MEDS: Dyna-Hex 2% Top Sol 2oz TOPIC SCH (23:38)
[2019-12-04] VITALS: BP 127/62
[2019-12-04] MEDS: NovoLOG Insulin Flexpen SUBQ SCH ×4 (00:58→17:16)
[2019-12-04 04:00] VITALS: BP 120/64
[2019-12-04 07:55] LABS: HEMATOCRIT 25.2 % (42.0-52.0); HEMOGLOBIN 7.5 G/DL (14.2-18.0); MEAN CORPUSCULAR VOLUME 93 FL (80-99); PLATELET COUNT 222 K/UL (150-450); RED BLOOD COUNT 2.72 M/UL (4.70-6.10); RED CELL DISTRIBUTION WIDTH 15.2 % (11.6-14.8); WHITE BLOOD COUNT 8.5 K/UL (4.8-10.8)
[2019-12-04 08:00] VITALS: BP 135/51
[2019-12-04 08:23] LABS: ALBUMIN/GLOBULIN RATIO 0.8 (1.0-2.7); BILIRUBIN,TOTAL 0.5 MG/DL (0.2-1.0); CALCIUM 8.9 MG/DL (8.5-10.1); CREATININE 2.8 MG/DL (0.55-1.30); PHOSPHORUS 3.8 MG/DL (2.5-4.9); POTASSIUM 4.2 MMOL/L (3.5-5.1)
[2019-12-04] MEDS: Docusate 100mg/10ml Liq NG SCH ×3 (08:34→17:11)
[2019-12-04] MEDS: Metoprolol Tartrate 12.5mg TAB GT SCH ×2 (08:34→21:27)
[2019-12-04] MEDS: Eliquis 2.5mg tablet ORAL SCH ×2 (08:35→17:11)
--- NOTE | 2019-12-04 09:52 | Pulmonology Progress Note ---
Reeam Hanna MAINTENANCE TRAINER 12/04/19 0952: Subjective ROS Limited/Unobtainable: No Allergies: Coded Allergies: PENICILLINS (Verified Allergy, Unknown, 10/25/19) tolerated Ceftriaxone Uncoded Allergies: PENICILLIN (Allergy, Unknown, 11/23/19) All Systems: reviewed and negative except above Subjective on tele off BiPAP and continued to decline it on O2 via NC, pulse ox stable no signs of resp distress bioethics eval was done 11/25 SHERRIE spoke with daughter and 11/29 SHERRIE discussed with daughter bioethics recs and further GOC and code status daughter and decided on DNR/DNI status , which was relayed to me by SHERRIE in search of new SNF currently Objective Last 24 Hour Vital Signs Date Time Temp Pulse Resp B/P (MAP) Pulse Ox O2 Delivery O2 Flow Rate FiO2 12/04/19 08:34 80 135/51 12/04/19 08:34 80 135/51 12/04/19 08:00 2.0 12/04/19 08:00 97.6 80 20 135/51 (79) 96 12/04/19 07:00 96 Nasal Cannula 2.0 28 12/04/19 04:00 2.0 12/04/19 04:00 95 12/04/19 04:00 98.5 89 20 120/64 (82) 97 12/04/19 00:00 87 12/04/19 00:00 2.0 12/04/19 00:00 98.8 78 20 127/62 (83) 98 12/03/19 23:38 79 133/66 12/03/19 23:38 79 133/66 12/03/19 23:36 79 20 133/66 (88) 98 12/03/19 22:05 131/53 (79) 12/03/19 21:00 Nasal Cannula 2.0 12/03/19 20:00 60 12/03/19 20:00 98.8 61 18 115/54 (74) 96 12/03/19 19:52 97 Nasal Cannula 2.0 28 12/03/19 16:00 2.0 12/03/19 16:00 98.1 62 20 125/52 (76) 100 12/03/19 15:41 62 12/03/19 12:00 2.0 9/11/20 12:00 97.5 62 20 118/44 (68) 94 12/03/19 11:47 62 12/03/19 10:06 98 Nasal Cannula 2.0 28 Intake and Output 12/03/19 12/04/19 19:00 07:00 Intake Total 580 ml Output Total 3000 ml Balance 580 ml -3000 ml IV Total 100 ml Tube Feeding 480 ml Hemodialysis UF 3000 ml # Bowel Movements 4 Objective General Appearance: alert , confused, Maltese speaking Lines, tubes and drains: peripheral HEENT: normocephalic, atraumatic, anicteric, O2 via NC Neck: supple Respiratory/Chest: lungs clear, no respiratory distress Cardiovascular/Chest: normal rate Abdomen: non tender, soft, feeding tube - G tube Extremities: BL foot TMA Neurologic: abnormal gait, alert, confused, responsive Musculoskeletal: atrophy - BLE Laboratory Tests 12/03/19 11:35: POC Whole Blood Glucose 219H 12/03/19 16:58: POC Whole Blood Glucose 203H 12/04/19 00:55: POC Whole Blood Glucose 197H 12/04/19 06:30: White Blood Count 8.5, Red Blood Count 2.72L, Hemoglobin 7.5L, Hematocrit 25.2L , Mean Corpuscular Volume 93, Mean Corpuscular Hemoglobin 27.4, Mean Corpuscular Hemoglobin Concent 29.6L, Red Cell Distribution Width 15.2H, Platelet Count 222, Mean Platelet Volume 7.1, Neutrophils (%) (Auto) , Lymphocytes (%) (Auto) , Monocytes (%) (Auto) , Eosinophils (%) (Auto) , Basophils (%) (Auto) , Neutrophils % (Manual) [Pending], Lymphocytes % (Manual) [Pending], Platelet Estimate [Pending], Platelet Morphology [Pending], Sodium Level 137, Potassium Level 4.2, Chloride Level 96L, Carbon Dioxide Level 34H, Anion Gap 7, Blood Urea Nitrogen 50H, Creatinine 2.8H, Estimat Glomerular Filtration Rate 21.9, Glucose Level 195H, Calcium Level 8.9, Phosphorus Level 3.8, Magnesium Level 2.6H, Total Bilirubin 0.5, Aspartate Amino Transf (AST/SGOT ) 20, Alanine Aminotransferase (ALT/SGPT) 16, Alkaline Phosphatase 208H, Total Protein 6.9, Albumin 3.0L, Globulin 3.9, Albumin/Globulin Ratio 0.8L 9/12/20 06:42: POC Whole Blood Glucose 203H Current Medications Medications (Trade) Dose Ordered Sig/Cammy Route PRN Reason Start Time Stop Time Status Last Admin Dose Admin Allopurinol (allopurinoL) 300 mg DAILY ORAL 11/26/19 10:30 12/24/19 10:29 12/04/19 08:34 Amlodipine Besylate (Norvasc) 5 mg Q12HR GT 11/28/19 21:00 12/24/19 10:29 12/04/19 08:34 Apixaban (Eliquis) 2.5 mg BID ORAL 11/26/19 10:30 02/22/20 10:29 12/04/19 08:35 Atorvastatin Calcium (Lipitor) 10 mg BEDTIME ORAL 11/26/19 21:00 02/22/20 20:59 12/03/19 23:39 Chlorhexidine Gluconate (Yi-Hex 2%) 1 applic DAILY@1999 TOPIC 11/26/19 20:00 02/24/20 19:59 12/03/19 23:38 Dextrose (Dextrose 50%) 25 ml Q30M PRN IV Hypoglycemia 12/03/19 10:30 03/02/20 10:29 Dextrose (Dextrose 50%) 50 ml Q30M PRN IV Hypoglycemia 12/03/19 10:30 03/02/20 10:29 Diphenhydramine HCl (Benadryl) 25 mg Q8H PRN NG Itching 12/03/19 09:30 01/02/20 09:29 12/03/19 09:34 Docusate Sodium (Colace) 100 mg THREE TIMES A DAY NG 11/28/19 13:00 12/28/19 12:59 12/04/19 08:34 Epoetin William (Epoetin William(ESRD on dialysis)) 10,000 unit FRI-FRI-FRI SUBQ 12/01/19 21:00 02/29/20 20:59 12/03/19 23:38 Insulin Aspart (NovoLOG) Q6HR SUBQ 12/03/19 12:00 03/02/20 11:59 12/04/19 07:04 Lansoprazole (Prevacid) 30 mg DAILY GT 11/28/19 10:45 12/28/19 10:44 12/04/19 08:34 Metoprolol Tartrate (Lopressor) 12.5 mg Q12HR GT 11/29/19 09:00 02/27/20 08:59 12/04/19 08:34 Sennosides (Senokot) 8.6 mg DAILY PRN ORAL Constipation 11/26/19 10:30 12/26/19 10:29 Assessment/Plan Assessment/Plan ASSESSMENT Prior acute hypoxemic hypercapnic respiratory failure requiring BiPAP Chronic CO2 retention Possible DAYANA Aspiration risk s/p recent PNA Dysphagia , s/p PEG , pulled out, s/p replacement of PEG 11/16 Acute kidney injury on chronic kidney disease, requiring start of HD 10/30 Anemia of chronic kidney disease Diabetes mellitus HTN PVD with hx of bilateral foot MTA Refusal of care PLAN OF CARE tele BiPAP at HS and prn , refusing again currently on O2 3 L via NC titrate O2, pulm toilet patient likely has DAYANA. recommend sleep study as OP CXR 11/28 mild vascular congestion and small bilateral pleural effusions, slightly improved when compared to October 31, 2019. No pneumothorax. Cardiomegaly. Calcified aorta. ABG prn rapid COVID NGT, BiPAP prn and HS ethics eval if pt can refuse BiPAP ( patient with dementia, confusion), daughter wants BiPAP and unclear how he refused if was on restraints? in our opinion BiPAP should be on standing order and available in the facility when patient will be transferred need formal polysomnogram to be done as OP bioethics eval appreciated, done 11/25 . per bioethics: pt with diminished capacity and does not understand the consequences of refusing bi-pap, yet it seems inhumane to force him to endure it recommended that he should be discharged to the SNF on nasal canula with instructions not to be sent back to the acute care hospital for refusal to accept bi-pap. bioethics offered to have a family conference to explain the reasoning if the family is willing to speak with us. SHERRIE spoke with daughter and ( through RN boat puller) re further GOC and code status 11/29 is considering DNR/DNI status but need to speak with Dr Chang first , not decided yet daughter and decided on DNR/DNI status , which was relayed to me by SHERRIE Dr Pabon spoke with Dr Chang, per attending patient remains full code dc plan to SNF ; SW discussed with family ( not want [facility]) completed Rx for PNA on prior admission Venous Duplex BLE 10/25 -> NGT on Eliquis aspir precautions, new BSSE pending TF via GT for now protein supplements HD as per nephro recs monitor volumes, renal paramerts, lytes s/p placement of permanent HD catheter R chest 11/07 s/p removal of temporary HD catheter by surgeon ECHO with pEF 55-60% rate control with BB, HR stable on chronic a/c , was on hold for PEG, Eliquis resumed BP management with CCB and BB, optimize as needed continue statin prior HgA1c -6.1 hold oral anti-glycemic monitor HH with goal to keep Hgb above 7 anemia w/up prior noted , heme on board on EPO GI prophayxlis supportive care case discussed and evaluated by supervising physician Leoncio Galan MD 12/04/19 1319: Subjective Allergies: Coded Allergies: PENICILLINS (Verified Allergy, Unknown, 10/25/19) tolerated Ceftriaxone Uncoded Allergies: PENICILLIN (Allergy, Unknown, 11/23/19) Assessment/Plan Assessment/Plan Patient seen and examined with MAINTENANCE TRAINER. Agree with above A&P as it reflects our joint deliberations. Patient to remain full code per Dr. Chang. Reema Hanna NP Dec 04, 2019 09:52 Leoncio Galan MD Dec 04, 2019 13:19
--- NOTE | 2019-12-04 11:16 | Nephrology Progress Note ---
Assessment/Plan Problem List: (1) Respiratory distress (2) Diabetes mellitus (3) Hypertension (4) Renal failure (ARF), acute on chronic Assessment Patient's current problem is dyspnea Most likely volume overload versus pneumonitis Other conditions: Renal failure (ARF), acute on chronic h/o Metabolic acidosis h/oElectrolyte imbalance Hyponatremia and hyperkalemia h/oAnemia h/o CHF (congestive heart failure) Plan December 03: Patient was dialyzed yesterday. Labs reviewed. Continue per current management. December 02: Due for dialysis today. Blood pressure medications on hold. Albumin 25% for BP support during dialysis. Continue to monitor renal parameters. December 01: Labs reviewed. Medication reviewed. Creatinine higher. Hemodialysis for tomorrow. Continue rest. November 30: Patient was last dialyzed November 28. Not in any distress now. Appears to be more verbal today. Labs reviewed. Creatinine 3.8. Hemoglobin lower at 7.9. 1 dose of IV iron ordered. Subcu Epogen ordered. November 29: Dialyzed yesterday. Status quo. Will check chemistry panel tomorrow. Dialysis as needed. Continue per PMD and consultants. November 28: Due for dialysis and ultrafiltration today. Labs and medications reviewed. Blood pressure is stable. November 27: BNP rising. Not much urine output. Will dialyze and ultrafiltrate tomorrow. Labs reviewed. Continue to adjust blood pressure medications. Continue per consultants. November 26: Last dialysis November 24. Status quo. Labs reviewed. Medication list reviewed. Continue to monitor renal parameters. Dialysis as needed. November 25: Patient was dialyzed yesterday. Today is due for insertion of a GT tube. Patient pulled out his previous GT tube. Labs reviewed. Electrolytes abnormalities adjusted. Continue to monitor renal parameters. Patient is off BiPAP and on nasal cannula now. I believe that upon discharge the patient requires 2-3 times a week dialysis and ultrafiltration however upon discharge the patient needs to be followed by a front desk coordinator in the facility that he goes to to assess on a regular basis the need and frequency for dialysis. November 24 : Late note entry due to [place] problem [place] [facility] [place] Patient due for dialysis and ultrafiltration today. Labs reviewed. Chest x-ray results not available on EMR. Last dialysis November 21. Continue pulmonary toilet. Patient remains on BiPAP. Will check labs tomorrow. Subjective ROS Limited/Unobtainable: No Constitutional: Reports: malaise Objective Objective Last 24 Hour Vital Signs Date Time Temp Pulse Resp B/P (MAP) Pulse Ox O2 Delivery O2 Flow Rate FiO2 12/04/19 10:36 Nasal Cannula 2.0 12/04/19 08:34 80 135/51 12/04/19 08:34 80 135/51 12/04/19 08:00 2.0 12/04/19 08:00 97.6 80 20 135/51 (79) 96 12/04/19 08:00 85 12/04/19 07:00 96 Nasal Cannula 2.0 28 12/04/19 04:00 2.0 12/04/19 04:00 95 12/04/19 04:00 98.5 89 20 120/64 (82) 97 12/04/19 00:00 87 12/04/19 00:00 2.0 12/04/19 00:00 98.8 78 20 127/62 (83) 98 12/03/19 23:38 79 133/66 12/03/19 23:38 79 133/66 12/03/19 23:36 79 20 133/66 (88) 98 12/03/19 22:05 131/53 (79) 12/03/19 21:00 Nasal Cannula 2.0 12/03/19 20:00 60 12/03/19 20:00 98.8 61 18 115/54 (74) 96 12/03/19 19:52 97 Nasal Cannula 2.0 28 12/03/19 16:00 2.0 12/03/19 16:00 98.1 62 20 125/52 (76) 100 12/03/19 15:41 62 12/03/19 12:00 2.0 12/03/19 12:00 97.5 62 20 118/44 (68) 94 12/03/19 11:47 62 Intake and Output 12/03/19 12/04/19 19:00 07:00 Intake Total 580 ml Output Total 3000 ml Balance 580 ml -3000 ml IV Total 100 ml Tube Feeding 480 ml Hemodialysis UF 3000 ml # Bowel Movements 4 Laboratory Tests 12/03/19 11:35: POC Whole Blood Glucose 219H 12/03/19 16:58: POC Whole Blood Glucose 203H 12/04/19 00:55: POC Whole Blood Glucose 197H 12/04/19 06:30: White Blood Count 8.5, Red Blood Count 2.72L, Hemoglobin 7.5L, Hematocrit 25.2L , Mean Corpuscular Volume 93, Mean Corpuscular Hemoglobin 27.4, Mean Corpuscular Hemoglobin Concent 29.6L, Red Cell Distribution Width 15.2H, Platelet Count 222, Mean Platelet Volume 7.1, Neutrophils (%) (Auto) , Lymphocytes (%) (Auto) , Monocytes (%) (Auto) , Eosinophils (%) (Auto) , Basophils (%) (Auto) , Differential Total Cells Counted 100, Neutrophils % ( Manual) 83H, Lymphocytes % (Manual) 12L, Monocytes % (Manual) 5, Eosinophils % ( Manual) 0, Basophils % (Manual) 0, Band Neutrophils 0, Platelet Estimate Adequate, Platelet Morphology Normal, Hypochromasia 3+, Anisocytosis 1+, Sodium Level 137, Potassium Level 4.2, Chloride Level 96L, Carbon Dioxide Level 34H, Anion Gap 7, Blood Urea Nitrogen 50H, Creatinine 2.8H, Estimat Glomerular Filtration Rate 21.9, Glucose Level 195H, Calcium Level 8.9, Phosphorus Level 3.8, Magnesium Level 2.6H, Total Bilirubin 0.5, Aspartate Amino Transf (AST/SGOT ) 20, Alanine Aminotransferase (ALT/SGPT) 16, Alkaline Phosphatase 208H, Total Protein 6.9, Albumin 3.0L, Globulin 3.9, Albumin/Globulin Ratio 0.8L 12/04/19 06:42: POC Whole Blood Glucose 203H Height (Feet): 5 Height (Inches): 5.00 Weight (Pounds): 169 General Appearance: no apparent distress Cardiovascular: normal rate Respiratory/Chest: decreased breath sounds Abdomen: distended Objective No change Naveed Vanegas MD Dec 04, 2019 11:16
[2019-12-04 11:33] LABS: % IRON SATURATION 12 % (15-50); IRON 24 ug/dL (50-175); TOTAL IRON BINDING CAPACITY 203 ug/dL (250-450)
[2019-12-04 11:46] LABS: FERRITIN 326 NG/ML (8-388)
[2019-12-04 12:00] VITALS: BP 139/43
[2019-12-04] MEDS: DiphenhydrAMINE 25mg/10ml Elixir NG PRN (12:28)
--- NOTE | 2019-12-04 15:14 | Cardiac Electrophysiology PN ---
Subjective Subjective [id number] Objective Last 24 Hour Vital Signs Date Time Temp Pulse Resp B/P (MAP) Pulse Ox O2 Delivery O2 Flow Rate FiO2 12/04/19 12:00 2.0 12/04/19 12:00 78 12/04/19 12:00 97.5 79 20 139/43 (75) 97 12/04/19 10:36 Nasal Cannula 2.0 12/04/19 08:34 80 135/51 12/04/19 08:34 80 135/51 12/04/19 08:00 2.0 12/04/19 08:00 97.6 80 20 135/51 (79) 96 12/04/19 08:00 85 12/04/19 07:00 96 Nasal Cannula 2.0 28 12/04/19 04:00 2.0 12/04/19 04:00 95 12/04/19 04:00 98.5 89 20 120/64 (82) 97 12/04/19 00:00 87 12/04/19 00:00 2.0 12/04/19 00:00 98.8 78 20 127/62 (83) 98 12/03/19 23:38 79 133/66 12/03/19 23:38 79 133/66 12/03/19 23:36 79 20 133/66 (88) 98 12/03/19 22:05 131/53 (79) 12/03/19 21:00 Nasal Cannula 2.0 12/03/19 20:00 60 12/03/19 20:00 98.8 61 18 115/54 (74) 96 12/03/19 19:52 97 Nasal Cannula 2.0 28 12/03/19 16:00 2.0 12/03/19 16:00 98.1 62 20 125/52 (76) 100 12/03/19 15:41 62 Intake and Output 12/03/19 12/04/19 19:00 07:00 Intake Total 580 ml 40 ml Output Total 3000 ml Balance 580 ml -2960 ml IV Total 100 ml Tube Feeding 480 ml 40 ml Hemodialysis UF 3000 ml # Bowel Movements 4 Laboratory Tests Test 12/03/19 16:58 12/04/19 00:55 12/04/19 06:30 12/04/19 06:42 POC Whole Blood Glucose 203 MG/DL (74-106) H 197 MG/DL (74-106) H 203 MG/DL (74-106) H White Blood Count 8.5 K/UL (4.8-10.8) Red Blood Count 2.72 M/UL (4.70-6.10) L Hemoglobin 7.5 G/DL (14.2-18.0) L Hematocrit 25.2 % (42.0-52.0) L Mean Corpuscular Volume 93 FL (80-99) Mean Corpuscular Hemoglobin 27.4 PG (27.0-31.0) Mean Corpuscular Hemoglobin Concent 29.6 G/DL (32.0-36.0) L Red Cell Distribution Width 15.2 % (11.6-14.8) H Platelet Count 222 K/UL (150-450) Mean Platelet Volume 7.1 FL (6.5-10.1) Neutrophils (%) (Auto) % (45.0-75.0) Lymphocytes (%) (Auto) % (20.0-45.0) Monocytes (%) (Auto) % (1.0-10.0) Eosinophils (%) (Auto) % (0.0-3.0) Basophils (%) (Auto) % (0.0-2.0) Differential Total Cells Counted 100 Neutrophils % (Manual) 83 % (45-75) H Lymphocytes % (Manual) 12 % (20-45) L Monocytes % (Manual) 5 % (1-10) Eosinophils % (Manual) 0 % (0-3) Basophils % (Manual) 0 % (0-2) Band Neutrophils 0 % (0-8) Platelet Estimate Adequate Platelet Morphology Normal Hypochromasia 3+ Anisocytosis 1+ Sodium Level 137 MMOL/L (136-145) Potassium Level 4.2 MMOL/L (3.5-5.1) Chloride Level 96 MMOL/L (98-107) L Carbon Dioxide Level 34 MMOL/L (21-32) H Anion Gap 7 mmol/L (5-15) Blood Urea Nitrogen 50 mg/dL (7-18) H Creatinine 2.8 MG/DL (0.55-1.30) H Estimat Glomerular Filtration Rate 21.9 mL/min (>60) Glucose Level 195 MG/DL (74-106) H Calcium Level 8.9 MG/DL (8.5-10.1) Phosphorus Level 3.8 MG/DL (2.5-4.9) Magnesium Level 2.6 MG/DL (1.8-2.4) H Total Bilirubin 0.5 MG/DL (0.2-1.0) Aspartate Amino Transf (AST/SGOT) 20 U/L (15-37) Alanine Aminotransferase (ALT/SGPT) 16 U/L (12-78) Alkaline Phosphatase 208 U/L (46-116) H Total Protein 6.9 G/DL (6.4-8.2) Albumin 3.0 G/DL (3.4-5.0) L Globulin 3.9 g/dL Albumin/Globulin Ratio 0.8 (1.0-2.7) L Test 12/04/19 07:45 12/04/19 11:43 Iron Level 24 ug/dL (50-175) L Total Iron Binding Capacity 203 ug/dL (250-450) L Percent Iron Saturation 12 % (15-50) L Unsaturated Iron Binding 179 ug/dL (112-346) Ferritin 326 NG/ML (8-388) POC Whole Blood Glucose 189 MG/DL (74-106) H Chris Valentin MD Dec 04, 2019 15:14
[2019-12-04 16:00] VITALS: BP 140/52
[2019-12-04 20:00] VITALS: BP 143/52
--- NOTE | 2019-12-04 20:25 | General Progress Note ---
Assessment/Plan Status Narrative Patient developed today atrial fibrillation and was assessed by cardiology However insulating controlled and is hemodynamically stable and comfortable A new ECF is being searched for the patient that will accept him on his hemodialysis program Repeat laboratory tests will be done in a.m. AYUSH CHANG MD Subjective Constitutional: Reports: no symptoms HEENT: Reports: no symptoms Cardiovascular: Reports: no symptoms, other - No shortness of breath palpitations or dizziness Respiratory: Reports: no symptoms Gastrointestinal/Abdominal: Reports: no symptoms Neurologic/Psychiatric: Reports: no symptoms Allergies: Coded Allergies: PENICILLINS (Verified Allergy, Unknown, 10/25/19) tolerated Ceftriaxone Uncoded Allergies: PENICILLIN (Allergy, Unknown, 11/23/19) Objective Last 24 Hour Vital Signs Date Time Temp Pulse Resp B/P (MAP) Pulse Ox O2 Delivery O2 Flow Rate FiO2 12/04/19 16:59 78 12/04/19 16:00 97.3 69 20 140/52 (81) 97 12/04/19 16:00 2.0 12/04/19 12:00 2.0 12/04/19 12:00 78 12/04/19 12:00 97.5 79 20 139/43 (75) 97 12/04/19 10:36 Nasal Cannula 2.0 12/04/19 08:34 80 135/51 12/04/19 08:34 80 135/51 12/04/19 08:00 2.0 12/04/19 08:00 97.6 80 20 135/51 (79) 96 12/04/19 08:00 85 12/04/19 07:00 96 Nasal Cannula 2.0 28 12/04/19 04:00 2.0 12/04/19 04:00 95 12/04/19 04:00 98.5 89 20 120/64 (82) 97 12/04/19 00:00 87 12/04/19 00:00 2.0 12/04/19 00:00 98.8 78 20 127/62 (83) 98 12/03/19 23:38 79 133/66 12/03/19 23:38 79 133/66 12/03/19 23:36 79 20 133/66 (88) 98 12/03/19 22:05 131/53 (79) 12/03/19 21:00 Nasal Cannula 2.0 Intake and Output 12/03/19 12/04/19 19:00 07:00 Intake Total 580 ml 40 ml Output Total 3000 ml Balance 580 ml -2960 ml IV Total 100 ml Tube Feeding 480 ml 40 ml Hemodialysis UF 3000 ml # Bowel Movements 4 Laboratory Tests 12/04/19 00:55: POC Whole Blood Glucose 197H 12/04/19 06:30: White Blood Count 8.5, Red Blood Count 2.72L, Hemoglobin 7.5L, Hematocrit 25.2L , Mean Corpuscular Volume 93, Mean Corpuscular Hemoglobin 27.4, Mean Corpuscular Hemoglobin Concent 29.6L, Red Cell Distribution Width 15.2H, Platelet Count 222, Mean Platelet Volume 7.1, Neutrophils (%) (Auto) , Lymphocytes (%) (Auto) , Monocytes (%) (Auto) , Eosinophils (%) (Auto) , Basophils (%) (Auto) , Differential Total Cells Counted 100, Neutrophils % ( Manual) 83H, Lymphocytes % (Manual) 12L, Monocytes % (Manual) 5, Eosinophils % ( Manual) 0, Basophils % (Manual) 0, Band Neutrophils 0, Platelet Estimate Adequate, Platelet Morphology Normal, Hypochromasia 3+, Anisocytosis 1+, Sodium Level 137, Potassium Level 4.2, Chloride Level 96L, Carbon Dioxide Level 34H, Anion Gap 7, Blood Urea Nitrogen 50H, Creatinine 2.8H, Estimat Glomerular Filtration Rate 21.9, Glucose Level 195H, Calcium Level 8.9, Phosphorus Level 3.8, Magnesium Level 2.6H, Total Bilirubin 0.5, Aspartate Amino Transf (AST/SGOT ) 20, Alanine Aminotransferase (ALT/SGPT) 16, Alkaline Phosphatase 208H, Total Protein 6.9, Albumin 3.0L, Globulin 3.9, Albumin/Globulin Ratio 0.8L 12/04/19 06:42: POC Whole Blood Glucose 203H 12/04/19 07:45: Iron Level 24L, Total Iron Binding Capacity 203L, Percent Iron Saturation 12L, Unsaturated Iron Binding 179, Ferritin 326 12/04/19 11:43: POC Whole Blood Glucose 189H Height (Feet): 5 Height (Inches): 5.00 Weight (Pounds): 169 Ayush Chang MD Dec 04, 2019 20:25
[2019-12-04] MEDS: Dyna-Hex 2% Top Sol 2oz TOPIC SCH (21:26)
[2019-12-04] MEDS: Amiodarone 200mg tab ORAL SCH (21:27)
--- NOTE | 2019-12-04 22:14 | Consultation ---
DATE OF CONSULTATION: 12/04/2019 CARDIAC ELECTROPHYSIOLOGY CONSULTATION REFERRING PHYSICIAN: Ayush Chang M.D. REASON FOR CONSULTATION: Atrial flutter. HISTORY OF PRESENT ILLNESS: The patient is a very pleasant 79-year-old gentleman with history of hypertension, diabetes, COPD, and peripheral vascular disease, status post bilateral transmetatarsal amputation, end-stage renal disease, on hemodialysis, and dysphagia status post PEG placement, who was recently at [facility], was on BiPAP for hypercapnia, which subsequently improved. On telemetry, the patient has had recurrent episodes of in and out of atrial fibrillation. Today, the patient was in atrial flutter. Cardiac electrophysiology consultation was obtained for further evaluation and management. The patient is already on metoprolol 12.5 mg b.i.d. and Eliquis 2.5 mg b.i.d. REVIEW OF SYSTEMS: Negative other than what is mentioned in history of present illness even though the patient is currently confused and restrained and nurse at the bedside. PAST MEDICAL HISTORY: As mentioned above. FAMILY HISTORY: Noncontributory. SOCIAL HISTORY: There is no history of drug use. PHYSICAL EXAMINATION: VITAL SIGNS: Blood pressure 139/43, pulse 78, respirations 18, and temperature 97.5. NECK: No JVD. LUNGS: Clear. He has dialysis access in the right IJ. CARDIOVASCULAR: Irregular S1 and S2 with no gallop. ABDOMEN: Status post G-tube. EXTREMITIES: Status post bilateral transmetatarsal amputation. LABORATORY AND DIAGNOSTIC DATA: His labs show white count of 8.5, hemoglobin of 7.5, hematocrit of 25.2, platelet count of 322. Sodium 137, potassium 4.2, BUN of 50, creatinine 2.8, and glucose of 195. ASSESSMENT/PLAN: 1. Atrial flutter. We will get a 12-lead EKG, which is atrial flutter. We will get an echocardiogram for further evaluation and completely rule out ND protocol. The rate is currently controlled on metoprolol 12.5 mg b.i.d. and is already on anticoagulation with Eliquis. 2. Hypertension, on metoprolol 12.5 mg b.i.d. and amlodipine 5 mg b.i.d., on hemodialysis. 3. Hyperlipidemia, on Lipitor. 4. End-stage renal disease, on hemodialysis. 5. Diabetes on insulin. 6. DNR/DNI status as of December 03, 2019. 7. COPD, off BiPAP. 8. Peripheral vascular disease, status post bilateral transmetatarsal amputation. 9. Confusion, in restraint. The patient's echocardiogram showed ejection fraction of 55-60%. Thank you very much for allowing me to participate in the care of this patient. Please do not hesitate to contact me for any questions regarding my evaluation. Chris Valentin M.D. DR: GILMAR JOB#: [id number] CC:
[2019-12-05] VITALS: BP 148/59
[2019-12-05] MEDS: NovoLOG Insulin Flexpen SUBQ SCH ×4 (01:08→17:20)
[2019-12-05 04:00] VITALS: BP 142/65
--- NOTE | 2019-12-05 07:11 | General Progress Note ---
Assessment/Plan Assessment/Plan: ASSESSMENT AND RECOMMENDATIONS: # Anemia of chronic disease due to underlying chronic medical issues, multifactorial --> Anemia w/u has been reviewed. --> no evidence of hemolysis is noted, peripheral smear has been reviewed --> hgb goal is >7, transfuse as needed --> currently remains stable, occult blood negative --> hgb 8.4->8.6->8.3->8->8.2->9.2-->9.2->8.9-->8.1-->8.7>9.4-->8.7-->8->7.8-> 7.5-->7.4-->7.5-->8.1-->8-->8.1-->9.5->7.9-->7.6-->7.5 --> 1 unit prbc 12/03 --> some blood loss due to hematuria after inflated reyes pulled 8/6 am --> EPOGEN Started # Thrombocytopenia is likely due to infection --> plt trend 180-->149-->274 --> on abx as needed --> hep and hiv neg #. Leukocytosis with underlying infectionv stress reaction HISTORY --> per id and better --> for infection, ABX ctx/vanc-->off --> wbc 10-->5.9 # Acute kidney injury r/o potential reversible component --> reviewed meds, those that are renally cleared removed --> as per renal recs, appreciated --> cr 3.5-->4.2-->3.4->3.3 --> Hd started and dw renal # Hypertension, essential --> sbp goal is <140, consider anti-htn as needed --> currently started on hyralazine 25mg po q6h prn sbp >140 # CHF - hx of CHf --> diuresis with lasix as needed --> cardiology recs appreciated prior adm #. Bilateral lower extremity amputee, metatarsal several years ago --> stable #. Atrial fibrillation --> as per cards recs #. Dysphagia s/p peg --> peg pulled out and now with gtube 11/25 #. Hyperkalemia --> kayxelate as needed #. Agitation requires restraints #. Dvt ppx scds --> xarelto=> off-->eliquis-->off The time the note was entered does not necessarily correspond to the time the patient was seen. GREATLY APPRECIATE CONSULTATION. Subjective HEENT: Denies: no symptoms, eye pain, blurred vision, tearing, double vision, ear pain, ear discharge, nose pain, nose congestion, throat pain, throat swelling, mouth pain, mouth swelling, other Allergies: Coded Allergies: PENICILLINS (Verified Allergy, Unknown, 10/25/19) tolerated Ceftriaxone Uncoded Allergies: PENICILLIN (Allergy, Unknown, 11/23/19) All Systems: reviewed and negative except above Subjective 11/23 came back from new snf due to lack of bipap capability, hgb 7.5 11/24 labs reviewed, remains sob, with a hgb 8.1, no bleeding, jag rn, hold off prbc 11/25 labs are noted, for egd and peg in the am, jag rn, on nc 11/27 getting 3l nc overnight, has been refusing bipap unfortunately, hgb stable 11/28 labs noted, with gtube feeds, again this am refusing bipap 11/29 is on 2l nc, with gtube feeds, hgb 9.5, no bleeding 11/30 labs are noted, no bleeding, on gtube feeds, on 2l nc 12/01 meds noted, no bleeding, hgb 7.9 yesterday, on nc 12/02 is on nepro and on 2l, hgb 7.6, c/o itching, have started benadryl q 8h prn 12/04 labs reviewed, coverning for Dr. Chang, no bleeding, meds noted, wants restraints off Objective Last 24 Hour Vital Signs Date Time Temp Pulse Resp B/P (MAP) Pulse Ox O2 Delivery O2 Flow Rate FiO2 12/05/19 04:00 69 12/05/19 04:00 2.0 12/05/19 04:00 97.1 73 18 142/65 (90) 98 12/05/19 00:00 2.0 12/05/19 00:00 70 12/05/19 00:00 97.5 70 20 148/59 (88) 98 12/04/19 21:27 73 143/52 12/04/19 21:27 73 143/52 12/04/19 21:00 Nasal Cannula 2.0 12/04/19 20:07 97 Nasal Cannula 2.0 28 12/04/19 20:00 2.0 12/04/19 20:00 98.1 73 20 143/52 (82) 97 12/04/19 20:00 74 12/04/19 16:59 78 12/04/19 16:00 97.3 69 20 140/52 (81) 97 12/04/19 16:00 2.0 12/04/19 12:00 2.0 12/04/19 12:00 78 12/04/19 12:00 97.5 79 20 139/43 (75) 97 12/04/19 10:36 Nasal Cannula 2.0 12/04/19 08:34 80 135/51 12/04/19 08:34 80 135/51 12/04/19 08:00 2.0 12/04/19 08:00 97.6 80 20 135/51 (79) 96 12/04/19 08:00 85 Intake and Output 12/04/19 12/05/19 19:00 07:00 Intake Total 670 ml Balance 670 ml Intake Free Water 230 ml Tube Feeding 440 ml # Voids 2 # Bowel Movements 1 Laboratory Tests 12/04/19 07:45: Iron Level 24L, Total Iron Binding Capacity 203L, Percent Iron Saturation 12L, Unsaturated Iron Binding 179, Ferritin 326 12/04/19 11:43: POC Whole Blood Glucose 189H Height (Feet): 5 Height (Inches): 5.00 Weight (Pounds): 169 Objective GENERAL: Not in acute distress. HEENT: ncat PULMONARY: Decreased breath sounds. ++ bipap v nc+ CHEST: ++permacath right chest CARDIOVASCULAR: Regular rate. No S3 or S4. ABDOMEN: Soft, nontender, nondistended.++peg EXTREMITIES: 1+ edema. No cyanosis, swelling, or edema. 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 Melvin Rizzo MD Dec 05, 2019 07:11
[2019-12-05 08:00] VITALS: BP 139/65
[2019-12-05] MEDS: Eliquis 2.5mg tablet ORAL SCH ×2 (08:36→17:17)
[2019-12-05] MEDS: Docusate 100mg/10ml Liq NG SCH ×3 (08:36→17:18)
[2019-12-05] MEDS: Metoprolol Tartrate 12.5mg TAB GT SCH ×2 (08:37→20:52)
[2019-12-05] MEDS: Amiodarone 200mg tab ORAL SCH ×2 (08:37→20:50)
--- NOTE | 2019-12-05 09:07 | Pulmonology Progress Note ---
Reema Hanna [employer] 12/05/19 0907: Subjective ROS Limited/Unobtainable: No Allergies: Coded Allergies: PENICILLINS (Verified Allergy, Unknown, 10/25/19) tolerated Ceftriaxone Uncoded Allergies: PENICILLIN (Allergy, Unknown, 11/23/19) All Systems: reviewed and negative except above Subjective on tele off BiPAP and continued to decline it on O2 via NC, pulse ox stable no signs of resp distress bioethics eval was done 11/25 SHERRIE spoke with daughter and 11/29 SHERRIE discussed with daughter bioethics recs and further GOC and code status daughter and decided on DNR/DNI status , which was relayed to me by SHERRIE in search of new SNF currently 12/03 developed parozismal aflutter/fib, seen by cardio, spontaneously back to SR Objective Last 24 Hour Vital Signs Date Time Temp Pulse Resp B/P (MAP) Pulse Ox O2 Delivery O2 Flow Rate FiO2 12/05/19 08:38 67 139/65 12/05/19 08:37 67 139/65 12/05/19 08:00 2.0 12/05/19 08:00 97.4 67 20 139/65 (89) 99 12/05/19 04:00 69 12/05/19 04:00 2.0 12/05/19 04:00 97.1 73 18 142/65 (90) 98 12/05/19 00:00 2.0 12/05/19 00:00 70 12/05/19 00:00 97.5 70 20 148/59 (88) 98 12/04/19 21:27 73 143/52 12/04/19 21:27 73 143/52 12/04/19 21:00 Nasal Cannula 2.0 12/04/19 20:07 97 Nasal Cannula 2.0 28 12/04/19 20:00 2.0 12/04/19 20:00 98.1 73 20 143/52 (82) 97 12/04/19 20:00 74 12/04/19 16:59 78 12/04/19 16:00 97.3 69 20 140/52 (81) 97 12/04/19 16:00 2.0 12/04/19 12:00 2.0 12/04/19 12:00 78 12/04/19 12:00 97.5 79 20 139/43 (75) 97 12/04/19 10:36 Nasal Cannula 2.0 Intake and Output 12/04/19 12/05/19 19:00 07:00 Intake Total 670 ml 100 ml Balance 670 ml 100 ml Intake Free Water 230 ml 100 ml Tube Feeding 440 ml # Voids 2 # Bowel Movements 1 Objective General Appearance: alert , confused, Kyrgyz speaking Lines, tubes and drains: peripheral HEENT: normocephalic, atraumatic, anicteric, O2 via NC Neck: supple Respiratory/Chest: lungs clear, no respiratory distress Cardiovascular/Chest: normal rate Abdomen: non tender, soft, feeding tube - G tube Extremities: BL foot TMA Neurologic: abnormal gait, alert, confused, responsive Musculoskeletal: atrophy - BLE Laboratory Tests 12/04/19 11:43: POC Whole Blood Glucose 189H Current Medications Medications (Trade) Dose Ordered Sig/Cammy Route PRN Reason Start Time Stop Time Status Last Admin Dose Admin Allopurinol (allopurinoL) 300 mg DAILY ORAL 11/26/19 10:30 12/24/19 10:29 12/05/19 08:37 Amiodarone HCl (Cordarone) 200 mg EVERY 12 HOURS ORAL 12/04/19 21:00 03/03/20 20:59 12/05/19 08:37 Amlodipine Besylate (Norvasc) 5 mg Q12HR GT 11/28/19 21:00 12/24/19 10:29 12/05/19 08:38 Apixaban (Eliquis) 2.5 mg BID ORAL 11/26/19 10:30 02/22/20 10:29 12/05/19 08:36 Atorvastatin Calcium (Lipitor) 10 mg BEDTIME ORAL 11/26/19 21:00 02/22/20 20:59 12/04/19 21:27 Chlorhexidine Gluconate (Yi-Hex 2%) 1 applic DAILY@1999 TOPIC 11/26/19 20:00 02/24/20 19:59 12/04/19 21:26 Dextrose (Dextrose 50%) 25 ml Q30M PRN IV Hypoglycemia 12/03/19 10:30 03/02/20 10:29 Dextrose (Dextrose 50%) 50 ml Q30M PRN IV Hypoglycemia 12/03/19 10:30 03/02/20 10:29 Diphenhydramine HCl (Benadryl) 25 mg Q8H PRN NG Itching 12/03/19 09:30 01/02/20 09:29 12/04/19 12:28 Docusate Sodium (Colace) 100 mg THREE TIMES A DAY NG 11/28/19 13:00 12/28/19 12:59 12/05/19 08:36 Epoetin William (Epoetin William(ESRD on dialysis)) 10,000 unit FRI-FRI-FRI SUBQ 12/01/19 21:00 02/29/20 20:59 12/03/19 23:38 Insulin Aspart (NovoLOG) Q6HR SUBQ 12/03/19 12:00 03/02/20 11:59 12/05/19 06:50 Lansoprazole (Prevacid) 30 mg DAILY GT 11/28/19 10:45 12/28/19 10:44 12/05/19 08:38 Metoprolol Tartrate (Lopressor) 12.5 mg Q12HR GT 11/29/19 09:00 02/27/20 08:59 12/05/19 08:37 Sennosides (Senokot) 8.6 mg DAILY PRN ORAL Constipation 11/26/19 10:30 12/26/19 10:29 Assessment/Plan Assessment/Plan ASSESSMENT Prior acute hypoxemic hypercapnic respiratory failure requiring BiPAP Chronic CO2 retention Possible DAYANA Aspiration risk s/p recent PNA Dysphagia , s/p PEG , pulled out, s/p replacement of PEG 11/16 Acute kidney injury on chronic kidney disease, requiring start of HD 10/30 Anemia of chronic kidney disease PAF/flutter- converted to SR Diabetes mellitus HTN PVD with hx of bilateral foot MTA Refusal of care PLAN OF CARE tele BiPAP at HS and prn , refusing again currently on O2 3 L via NC titrate O2, pulm toilet patient likely has DAYANA. recommend sleep study as OP CXR 11/28 mild vascular congestion and small bilateral pleural effusions, slightly improved when compared to October 31, 2019. No pneumothorax. Cardiomegaly. Calcified aorta. ABG prn rapid COVID NGT, BiPAP prn and HS-continued to refuse developed A flutter/ fib 12/03 seen by cardio already spontaneously converter to SR on a/c with Eliquis, rate controlled with BB ECHO with pEF 55-60% rate control with BB, HR stable on chronic a/c , was on hold for PEG, Eliquis afterwards resumed BP management with CCB and BB, optimize as needed continue statin ethics eval if pt can refuse BiPAP ( patient with dementia, confusion), daughter wants BiPAP and unclear how he refused if was on restraints? in our opinion BiPAP should be on standing order and available in the facility when patient will be transferred need formal polysomnogram to be done as OP bioethics eval appreciated, done 11/25 . per bioethics: pt with diminished capacity and does not understand the consequences of refusing bi-pap, yet it seems inhumane to force him to endure it recommended that he should be discharged to the SNF on nasal canula with instructions not to be sent back to the acute care hospital for refusal to accept bi-pap. bioethics offered to have a family conference to explain the reasoning if the family is willing to speak with us. SHERRIE spoke with daughter and ( through RN wool hanker) re further GOC and code status 11/29 daughter and decided on DNR/DNI status , which was relayed to me by SHERRIE Dr Pabon spoke with Dr Chang, per attending patient remains full code dc plan to SNF ; SHERRIE discussed with family ( not want [facility]) completed Rx for PNA on prior admission Venous Duplex BLE 10/25 -> NGT aspir precautions, new BSSE pending TF via GT for now protein supplements HD as per nephro recs monitor volumes, renal paramerts, lytes s/p placement of permanent HD catheter R chest 11/07 s/p removal of temporary HD catheter by surgeon prior HgA1c -6.1 hold oral anti-glycemic monitor HH with goal to keep Hgb above 7 anemia w/up prior noted , heme on board on EPO GI prophayxlis supportive care case discussed and evaluated by supervising physician Leoncio Galan MD 12/05/19 1340: Subjective Allergies: Coded Allergies: PENICILLINS (Verified Allergy, Unknown, 10/25/19) tolerated Ceftriaxone Uncoded Allergies: PENICILLIN (Allergy, Unknown, 11/23/19) Assessment/Plan Assessment/Plan Patient seen and examined with [employer]. Agree with above A&P as it reflects our joint deliberations. Reema Hanna [employer] Dec 05, 2019 09:07 Leoncio Galan MD Dec 05, 2019 13:40
[2019-12-05 12:00] VITALS: BP 154/54
[2019-12-05 16:00] VITALS: BP 154/53
--- NOTE | 2019-12-05 16:08 | Nephrology Progress Note ---
Assessment/Plan Problem List: (1) Respiratory distress (2) Diabetes mellitus (3) Hypertension (4) Renal failure (ARF), acute on chronic Assessment Patient's current problem is dyspnea Most likely volume overload versus pneumonitis Other conditions: Renal failure (ARF), acute on chronic h/o Metabolic acidosis h/oElectrolyte imbalance Hyponatremia and hyperkalemia h/oAnemia h/o CHF (congestive heart failure) Plan December 04: Status quo. Labs reviewed. Continue per current management. December 03: Patient was dialyzed yesterday. Labs reviewed. Continue per current management. December 02: Due for dialysis today. Blood pressure medications on hold. Albumin 25% for BP support during dialysis. Continue to monitor renal parameters. December 01: Labs reviewed. Medication reviewed. Creatinine higher. Hemodialysis for tomorrow. Continue rest. November 30: Patient was last dialyzed November 28. Not in any distress now. Appears to be more verbal today. Labs reviewed. Creatinine 3.8. Hemoglobin lower at 7.9. 1 dose of IV iron ordered. Subcu Epogen ordered. November 29: Dialyzed yesterday. Status quo. Will check chemistry panel tomorrow. Dialysis as needed. Continue per PMD and consultants. November 28: Due for dialysis and ultrafiltration today. Labs and medications reviewed. Blood pressure is stable. November 27: BNP rising. Not much urine output. Will dialyze and ultrafiltrate tomorrow. Labs reviewed. Continue to adjust blood pressure medications. Continue per consultants. November 26: Last dialysis November 24. Status quo. Labs reviewed. Medication list reviewed. Continue to monitor renal parameters. Dialysis as needed. November 25: Patient was dialyzed yesterday. Today is due for insertion of a GT tube. Patient pulled out his previous GT tube. Labs reviewed. Electrolytes abnormalities adjusted. Continue to monitor renal parameters. Patient is off BiPAP and on nasal cannula now. I believe that upon discharge the patient requires 2-3 times a week dialysis and ultrafiltration however upon discharge the patient needs to be followed by a skip miner in the facility that he goes to to assess on a regular basis the need and frequency for dialysis. November 24 : Late note entry due to system problem at the [facility] today. Patient due for dialysis and ultrafiltration today. Labs reviewed. Chest x-ray results not available on EMR. Last dialysis November 21. Continue pulmonary toilet. Patient remains on BiPAP. Will check labs tomorrow. Subjective ROS Limited/Unobtainable: No Constitutional: Reports: malaise Objective Objective Last 24 Hour Vital Signs Date Time Temp Pulse Resp B/P (MAP) Pulse Ox O2 Delivery O2 Flow Rate FiO2 12/05/19 12:00 97.6 64 20 154/54 (87) 98 12/05/19 12:00 66 12/05/19 12:00 2.0 12/05/19 09:40 Nasal Cannula 2.0 12/05/19 08:38 67 139/65 12/05/19 08:37 67 139/65 12/05/19 08:00 68 12/05/19 08:00 2.0 12/05/19 08:00 97.4 67 20 139/65 (89) 99 12/05/19 04:00 69 12/05/19 04:00 2.0 12/05/19 04:00 97.1 73 18 142/65 (90) 98 12/05/19 00:00 2.0 12/05/19 00:00 70 12/05/19 00:00 97.5 70 20 148/59 (88) 98 12/04/19 21:27 73 143/52 12/04/19 21:27 73 143/52 12/04/19 21:00 Nasal Cannula 2.0 12/04/19 20:07 97 Nasal Cannula 2.0 28 12/04/19 20:00 2.0 12/04/19 20:00 98.1 73 20 143/52 (82) 97 12/04/19 20:00 74 12/04/19 16:59 78 Intake and Output 12/04/19 12/05/19 19:00 07:00 Intake Total 670 ml 140 ml Balance 670 ml 140 ml Intake Free Water 230 ml 100 ml Tube Feeding 440 ml 40 ml # Voids 2 # Bowel Movements 1 Laboratory Tests 12/05/19 08:08: Troponin I 0.000 Height (Feet): 5 Height (Inches): 5.00 Weight (Pounds): 169 General Appearance: no apparent distress Cardiovascular: normal rate Respiratory/Chest: decreased breath sounds Abdomen: soft Objective No change Naveed Vanegas MD Dec 05, 2019 16:08
--- NOTE | 2019-12-05 18:56 | Cardiac Electrophysiology PN ---
Assessment/Plan Assessment/Plan 1. Atrial flutter. 12-lead EKG is typical atrial flutter. Echo EF 55%. Ruled out for MT protocol. Continue Amiodarone 200 bid, metoprolol 12.5 mg b.i.d. and Eliquis. 2. Hypertension, on metoprolol 12.5 mg b.i.d. and amlodipine 5 mg b.i.d., on hemodialysis. 3. Hyperlipidemia, on Lipitor. 4. End-stage renal disease, on hemodialysis. 5. Diabetes on insulin. 6. DNR/DNI status as of December 03, 2019. 7. COPD, off BiPAP. 8. Peripheral vascular disease, status post bilateral transmetatarsal amputation. 9. Confusion, in restraint. Subjective Subjective Comfortable in NAD. In Atrial fib/flutter with controlled rate Objective Last 24 Hour Vital Signs Date Time Temp Pulse Resp B/P (MAP) Pulse Ox O2 Delivery O2 Flow Rate FiO2 12/05/19 16:00 97.3 65 22 154/53 (86) 98 12/05/19 16:00 2.0 12/05/19 12:00 97.6 64 20 154/54 (87) 98 12/05/19 12:00 66 12/05/19 12:00 2.0 12/05/19 09:40 Nasal Cannula 2.0 12/05/19 08:38 67 139/65 12/05/19 08:37 67 139/65 12/05/19 08:02 98 Nasal Cannula 2.0 28 12/05/19 08:00 68 12/05/19 08:00 2.0 12/05/19 08:00 97.4 67 20 139/65 (89) 99 12/05/19 04:00 69 12/05/19 04:00 2.0 12/05/19 04:00 97.1 73 18 142/65 (90) 98 12/05/19 00:00 2.0 12/05/19 00:00 70 12/05/19 00:00 97.5 70 20 148/59 (88) 98 12/04/19 21:27 73 143/52 12/04/19 21:27 73 143/52 12/04/19 21:00 Nasal Cannula 2.0 12/04/19 20:07 97 Nasal Cannula 2.0 28 12/04/19 20:00 2.0 12/04/19 20:00 98.1 73 20 143/52 (82) 97 12/04/19 20:00 74 Intake and Output 12/04/19 12/05/19 19:00 07:00 Intake Total 670 ml 140 ml Balance 670 ml 140 ml Intake Free Water 230 ml 100 ml Tube Feeding 440 ml 40 ml # Voids 2 # Bowel Movements 1 Laboratory Tests Test 12/05/19 08:08 12/05/19 16:20 Troponin I 0.000 ng/mL (0.000-0.056) POC Whole Blood Glucose 226 MG/DL (74-106) H Objective NECK: No JVD. LUNGS: Clear. He has dialysis access in the right IJ. CARDIOVASCULAR: Irregular S1 and S2 with no gallop. ABDOMEN: Status post G-tube. EXTREMITIES: Status post bilateral transmetatarsal amputation. Chris Valentin MD Dec 05, 2019 18:56
[2019-12-05 20:00] VITALS: BP 147/60
[2019-12-05] MEDS: Dyna-Hex 2% Top Sol 2oz TOPIC SCH (20:52)
[2019-12-06] VITALS: BP 149/93
[2019-12-06] MEDS: NovoLOG Insulin Flexpen SUBQ SCH ×4 (00:36→18:15)
[2019-12-06 04:00] VITALS: BP 146/55
[2019-12-06 08:00] VITALS: BP 155/53
[2019-12-06] MEDS: Metoprolol Tartrate 12.5mg TAB GT SCH ×2 (09:25→21:00)
[2019-12-06] MEDS: Amiodarone 200mg tab ORAL SCH ×2 (09:25→21:00)
[2019-12-06] MEDS: Docusate 100mg/10ml Liq NG SCH ×3 (09:25→18:15)
[2019-12-06] MEDS: Eliquis 2.5mg tablet ORAL SCH ×2 (09:25→18:15)
--- NOTE | 2019-12-06 10:04 | Hematology/Onc Progress Note ---
Assessment/Plan Assessment/Plan ASSESSMENT AND RECOMMENDATIONS: # Anemia of chronic disease due to underlying chronic medical issues, multifactorial --> Anemia w/u has been reviewed. --> no evidence of hemolysis is noted, peripheral smear has been reviewed --> hgb goal is >7, transfuse as needed --> currently remains stable, occult blood negative --> hgb 8.4->8.6->8.3->8->8.2->9.2-->9.2->8.9-->8.1-->8.7>9.4-->8.7-->8->7.8-> 7.5-->7.4-->7.5-->8.1-->8-->8.1-->9.5->7.9-->7.6-->7.5 --> 1 unit prbc 12/03 --> some blood loss due to hematuria after inflated reyes pulled 8/6 am --> EPOGEN Started # Thrombocytopenia is likely due to infection --> plt trend 180-->149-->274 --> on abx as needed --> hep and hiv neg #. Leukocytosis with underlying infectionv stress reaction HISTORY --> per id and better --> for infection, ABX ctx/vanc-->off --> wbc 10-->5.9 # Acute kidney injury r/o potential reversible component --> reviewed meds, those that are renally cleared removed --> as per renal recs, appreciated --> cr 3.5-->4.2-->3.4->3.3 --> Hd started and dw renal # Hypertension, essential --> sbp goal is <140, consider anti-htn as needed --> currently started on hyralazine 25mg po q6h prn sbp >140 # CHF - hx of CHf --> diuresis with lasix as needed --> cardiology recs appreciated prior adm #. Bilateral lower extremity amputee, metatarsal several years ago --> stable #. Atrial fibrillation --> as per cards recs #. Dysphagia s/p peg --> peg pulled out and now with gtube 11/25 #. Hyperkalemia --> kayxelate as needed #. Agitation requires restraints #. Dvt ppx scds --> xarelto=> off-->eliquis-->off The time the note was entered does not necessarily correspond to the time the patient was seen. GREATLY APPRECIATE CONSULTATION. Subjective Constitutional: Denies: no symptoms, chills, fever, malaise, weakness, other HEENT: Denies: no symptoms, eye pain, blurred vision, tearing, double vision, ear pain, ear discharge, nose pain, nose congestion, throat pain, throat swelling, mouth pain, mouth swelling, other Cardiovascular: Denies: no symptoms, chest pain, edema, irregular heart rate, lightheadedness, palpitations, syncope, other Respiratory: Denies: no symptoms, cough, shortness of breath, SOB with excertion, SOB at rest, sputum, wheezing, other Gastrointestinal/Abdominal: Denies: no symptoms, abdomen distended, abdominal pain, black stools, tarry stools, blood in stool, constipated, diarrhea, difficulty swallowing, nausea, poor appetite, poor fluid intake, rectal bleeding , vomiting, other Genitourinary: Denies: no symptoms, burning, discharge, frequency, flank pain, hematuria, incontinence, pain, urgency, other Neurologic/Psychiatric: Denies: no symptoms, anxiety, depressed, emotional problems, headache, numbness, paresthesia, pre-existing deficit, seizure, tingling, tremors, weakness, other Endocrine: Denies: no symptoms, excessive sweating, flushing, intolerance to cold, intolerance to heat, increased hunger, increased thirst, increased urine, unexplained weight gain, unexplained weight loss, other Allergies: Coded Allergies: PENICILLINS (Verified Allergy, Unknown, 10/25/19) tolerated Ceftriaxone Uncoded Allergies: PENICILLIN (Allergy, Unknown, 11/23/19) Subjective 11/23 came [facility] due to lack of bipap capability, hgb 7.5 11/24 labs reviewed, remains sob, with a hgb 8.1, no bleeding, jag salas, hold off prbc 11/25 labs are noted, for egd and peg in the am, jag salas, on nc 11/27 getting 3l nc overnight, has been refusing bipap unfortunately, hgb stable 11/28 labs noted, with gtube feeds, again this am refusing bipap 11/29 is on 2l nc, with gtube feeds, hgb 9.5, no bleeding 11/30 labs are noted, no bleeding, on gtube feeds, on 2l nc 12/01 meds noted, no bleeding, hgb 7.9 yesterday, on nc 12/02 is on nepro and on 2l, hgb 7.6, c/o itching, have started benadryl q 8h prn 12/04 labs reviewed, coverning for Dr. Chang, no bleeding, meds noted, wants restraints off 12/05 labs are noted, no bleeding, no night sweats, with gtube feeds ongoing Objective Objective Current Medications Medications (Trade) Dose Ordered Sig/Cammy Route PRN Reason Start Time Stop Time Status Last Admin Dose Admin Allopurinol (allopurinoL) 300 mg DAILY ORAL 11/26/19 10:30 12/24/19 10:29 12/06/19 09:25 Amiodarone HCl (Cordarone) 200 mg EVERY 12 HOURS ORAL 12/04/19 21:00 03/03/20 20:59 12/06/19 09:25 Amlodipine Besylate (Norvasc) 5 mg Q12HR GT 11/28/19 21:00 12/24/19 10:29 12/06/19 09:25 Apixaban (Eliquis) 2.5 mg BID ORAL 11/26/19 10:30 02/22/20 10:29 12/06/19 09:25 Atorvastatin Calcium (Lipitor) 10 mg BEDTIME ORAL 11/26/19 21:00 02/22/20 20:59 12/05/19 20:50 Chlorhexidine Gluconate (Yi-Hex 2%) 1 applic DAILY@1999 TOPIC 11/26/19 20:00 02/24/20 19:59 12/05/19 20:52 Dextrose (Dextrose 50%) 25 ml Q30M PRN IV Hypoglycemia 12/03/19 10:30 03/02/20 10:29 Dextrose (Dextrose 50%) 50 ml Q30M PRN IV Hypoglycemia 12/03/19 10:30 03/02/20 10:29 Diphenhydramine HCl (Benadryl) 25 mg Q8H PRN NG Itching 12/03/19 09:30 01/02/20 09:29 12/04/19 12:28 Docusate Sodium (Colace) 100 mg THREE TIMES A DAY NG 11/28/19 13:00 12/28/19 12:59 12/06/19 09:25 Epoetin William (Epoetin William(ESRD on dialysis)) 10,000 unit SUBQ 12/01/19 21:00 02/29/20 20:59 12/03/19 23:38 Insulin Aspart (NovoLOG) Q6HR SUBQ 12/03/19 12:00 03/02/20 11:59 12/06/19 06:22 Lansoprazole (Prevacid) 30 mg DAILY GT 11/28/19 10:45 12/28/19 10:44 12/06/19 09:25 Metoprolol Tartrate (Lopressor) 12.5 mg Q12HR GT 11/29/19 09:00 02/27/20 08:59 12/06/19 09:25 Sennosides (Senokot) 8.6 mg DAILY PRN ORAL Constipation 11/26/19 10:30 12/26/19 10:29 Last 24 Hour Vital Signs Date Time Temp Pulse Resp B/P (MAP) Pulse Ox O2 Delivery O2 Flow Rate FiO2 12/06/19 09:25 64 146/55 12/06/19 09:25 64 146/55 12/06/19 04:00 97.9 65 23 146/55 (85) 98 12/06/19 04:00 64 12/06/19 00:00 64 12/06/19 00:00 98.0 73 20 149/93 (111) 98 12/05/19 21:00 Nasal Cannula 2.0 12/05/19 20:52 67 147/60 12/05/19 20:51 67 147/60 12/05/19 20:08 98 Nasal Cannula 2.0 28 12/05/19 20:00 68 12/05/19 20:00 97.1 67 21 147/60 (89) 98 12/05/19 16:00 97.3 65 22 154/53 (86) 98 12/05/19 16:00 2.0 12/05/19 12:00 97.6 64 20 154/54 (87) 98 12/05/19 12:00 66 12/05/19 12:00 2.0 12/05/19 09:40 Nasal Cannula 2.0 12/05/19 08:38 67 139/65 12/05/19 08:37 67 139/65 12/05/19 08:02 98 Nasal Cannula 2.0 28 12/05/19 08:00 68 12/05/19 08:00 2.0 12/05/19 08:00 97.4 67 20 139/65 (89) 99 12/05/19 04:00 69 12/05/19 04:00 2.0 12/05/19 04:00 97.1 73 18 142/65 (90) 98 12/05/19 00:00 2.0 12/05/19 00:00 70 12/05/19 00:00 97.5 70 20 148/59 (88) 98 12/04/19 21:27 73 143/52 12/04/19 21:27 73 143/52 12/04/19 21:00 Nasal Cannula 2.0 12/04/19 20:07 97 Nasal Cannula 2.0 28 12/04/19 20:00 2.0 12/04/19 20:00 98.1 73 20 143/52 (82) 97 12/04/19 20:00 74 12/04/19 16:59 78 12/04/19 16:00 97.3 69 20 140/52 (81) 97 12/04/19 16:00 2.0 12/04/19 12:00 2.0 12/04/19 12:00 78 12/04/19 12:00 97.5 79 20 139/43 (75) 97 12/04/19 10:36 Nasal Cannula 2.0 Intake and Output 12/05/19 12/06/19 18:59 06:59 Intake Total 640 ml 600 ml Balance 640 ml 600 ml Intake Free Water 160 ml 120 ml Tube Feeding 480 ml 480 ml # Voids 2 2 # Bowel Movements 1 1 Labs Test 12/03/19 11:35 12/03/19 16:58 12/04/19 00:55 12/04/19 06:30 POC Whole Blood Glucose 219 MG/DL (74-106) 203 MG/DL (74-106) 197 MG/DL (74-106) White Blood Count 8.5 K/UL (4.8-10.8) Red Blood Count 2.72 M/UL (4.70-6.10) Hemoglobin 7.5 G/DL (14.2-18.0) Hematocrit 25.2 % (42.0-52.0) Mean Corpuscular Volume 93 FL (80-99) Mean Corpuscular Hemoglobin 27.4 PG (27.0-31.0) Mean Corpuscular Hemoglobin Concent 29.6 G/DL (32.0-36.0) Red Cell Distribution Width 15.2 % (11.6-14.8) Platelet Count 222 K/UL (150-450) Mean Platelet Volume 7.1 FL (6.5-10.1) Neutrophils (%) (Auto) % (45.0-75.0) Lymphocytes (%) (Auto) % (20.0-45.0) Monocytes (%) (Auto) % (1.0-10.0) Eosinophils (%) (Auto) % (0.0-3.0) Basophils (%) (Auto) % (0.0-2.0) Differential Total Cells Counted 100 Neutrophils % (Manual) 83 % (45-75) Lymphocytes % (Manual) 12 % (20-45) Monocytes % (Manual) 5 % (1-10) Eosinophils % (Manual) 0 % (0-3) Basophils % (Manual) 0 % (0-2) Band Neutrophils 0 % (0-8) Platelet Estimate Adequate Platelet Morphology Normal Hypochromasia 3+ Anisocytosis 1+ Sodium Level 137 MMOL/L (136-145) Potassium Level 4.2 MMOL/L (3.5-5.1) Chloride Level 96 MMOL/L (98-107) Carbon Dioxide Level 34 MMOL/L (21-32) Anion Gap 7 mmol/L (5-15) Blood Urea Nitrogen 50 mg/dL (7-18) Creatinine 2.8 MG/DL (0.55-1.30) Estimat Glomerular Filtration Rate 21.9 mL/min (>60) Glucose Level 195 MG/DL (74-106) Calcium Level 8.9 MG/DL (8.5-10.1) Phosphorus Level 3.8 MG/DL (2.5-4.9) Magnesium Level 2.6 MG/DL (1.8-2.4) Total Bilirubin 0.5 MG/DL (0.2-1.0) Aspartate Amino Transf (AST/SGOT) 20 U/L (15-37) Alanine Aminotransferase (ALT/SGPT) 16 U/L (12-78) Alkaline Phosphatase 208 U/L (46-116) Total Protein 6.9 G/DL (6.4-8.2) Albumin 3.0 G/DL (3.4-5.0) Globulin 3.9 g/dL Albumin/Globulin Ratio 0.8 (1.0-2.7) Test 12/04/19 06:42 12/04/19 07:45 12/04/19 11:43 12/05/19 08:08 POC Whole Blood Glucose 203 MG/DL (74-106) 189 MG/DL (74-106) Iron Level 24 ug/dL (50-175) Total Iron Binding Capacity 203 ug/dL (250-450) Percent Iron Saturation 12 % (15-50) Unsaturated Iron Binding 179 ug/dL (112-346) Ferritin 326 NG/ML (8-388) Troponin I 0.000 ng/mL (0.000-0.056) Test 12/05/19 16:20 12/06/19 00:25 12/06/19 06:19 POC Whole Blood Glucose 226 MG/DL (74-106) Height (Feet): 5 Height (Inches): 5.00 Weight (Pounds): 169 Objective GENERAL: Not in acute distress. HEENT: ncat PULMONARY: Decreased breath sounds. ++ bipap v nc+ CHEST: ++permacath right chest CARDIOVASCULAR: Regular rate. No S3 or S4. ABDOMEN: Soft, nontender, nondistended.++peg EXTREMITIES: 1+ edema. No cyanosis, swelling, or edema. 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 Melvin Rizzo MD Dec 06, 2019 10:04
--- NOTE | 2019-12-06 10:07 | General Progress Note ---
Assessment/Plan Problem List: (1) Hypertension ICD Codes: I10 - Essential (primary) hypertension SNOMED: 62193479 (2) Diabetes mellitus ICD Codes: E11.9 - Type 2 diabetes mellitus without complications SNOMED: 43807536 (3) Cholelithiasis ICD Codes: K80.20 - Calculus of gallbladder without cholecystitis without obstruction SNOMED: 983343189 Assessment/Plan: dysphagia s/p GT placement GTF monitor for residuals fu H&H prn blood transfusion Subjective ROS Limited/Unobtainable: No Allergies: Coded Allergies: PENICILLINS (Verified Allergy, Unknown, 10/25/19) tolerated Ceftriaxone Uncoded Allergies: PENICILLIN (Allergy, Unknown, 11/23/19) Objective Last 24 Hour Vital Signs Date Time Temp Pulse Resp B/P (MAP) Pulse Ox O2 Delivery O2 Flow Rate FiO2 12/06/19 09:25 64 146/55 12/06/19 09:25 64 146/55 12/06/19 04:00 97.9 65 23 146/55 (85) 98 12/06/19 04:00 64 12/06/19 00:00 64 12/06/19 00:00 98.0 73 20 149/93 (111) 98 12/05/19 21:00 Nasal Cannula 2.0 12/05/19 20:52 67 147/60 12/05/19 20:51 67 147/60 12/05/19 20:08 98 Nasal Cannula 2.0 28 12/05/19 20:00 68 12/05/19 20:00 97.1 67 21 147/60 (89) 98 12/05/19 16:00 97.3 65 22 154/53 (86) 98 12/05/19 16:00 2.0 12/05/19 12:00 97.6 64 20 154/54 (87) 98 12/05/19 12:00 66 12/05/19 12:00 2.0 Intake and Output 12/05/19 12/06/19 19:00 07:00 Intake Total 640 ml 560 ml Balance 640 ml 560 ml Intake Free Water 160 ml 120 ml Tube Feeding 480 ml 440 ml # Voids 2 2 # Bowel Movements 1 1 Laboratory Tests 12/05/19 16:20: POC Whole Blood Glucose 226H 12/06/19 00:25: POC Whole Blood Glucose [Pending] 12/06/19 06:19: POC Whole Blood Glucose [Pending] Height (Feet): 5 Height (Inches): 5.00 Weight (Pounds): 169 General Appearance: no apparent distress EENT: normal ENT inspection Neck: supple Cardiovascular: normal rate Respiratory/Chest: decreased breath sounds Abdomen: normal bowel sounds, non tender, soft Extremities: non-tender Lawrence Humphreys MD Dec 06, 2019 10:07
--- NOTE | 2019-12-06 10:18 | Pulmonology Progress Note ---
Reema Hanna SOUNDSCRIBER MECHANIC 12/06/19 1018: Subjective ROS Limited/Unobtainable: No Allergies: Coded Allergies: PENICILLINS (Verified Allergy, Unknown, 10/25/19) tolerated Ceftriaxone Uncoded Allergies: PENICILLIN (Allergy, Unknown, 11/23/19) All Systems: reviewed and negative except above Subjective on tele off BiPAP and continued to decline it on O2 via NC, pulse ox stable no signs of resp distress bioethics eval was done 11/25 SHERRIE spoke with daughter and 11/29 SHERRIE discussed with daughter bioethics recs and further GOC and code status daughter and decided on DNR/DNI status , which was relayed to me by SHERRIE in search of new SNF currently 12/03 developed paroxysmal aflutter/fib, seen by cardio, spontaneously back to SR Objective Last 24 Hour Vital Signs Date Time Temp Pulse Resp B/P (MAP) Pulse Ox O2 Delivery O2 Flow Rate FiO2 12/06/19 09:25 64 146/55 12/06/19 09:25 64 146/55 12/06/19 04:00 97.9 65 23 146/55 (85) 98 12/06/19 04:00 64 12/06/19 00:00 64 12/06/19 00:00 98.0 73 20 149/93 (111) 98 12/05/19 21:00 Nasal Cannula 2.0 12/05/19 20:52 67 147/60 12/05/19 20:51 67 147/60 12/05/19 20:08 98 Nasal Cannula 2.0 28 12/05/19 20:00 68 12/05/19 20:00 97.1 67 21 147/60 (89) 98 12/05/19 16:00 97.3 65 22 154/53 (86) 98 12/05/19 16:00 2.0 12/05/19 12:00 97.6 64 20 154/54 (87) 98 12/05/19 12:00 66 12/05/19 12:00 2.0 Intake and Output 12/05/19 12/06/19 19:00 07:00 Intake Total 640 ml 560 ml Balance 640 ml 560 ml Intake Free Water 160 ml 120 ml Tube Feeding 480 ml 440 ml # Voids 2 2 # Bowel Movements 1 1 Objective General Appearance: alert , confused, Frisian speaking Lines, tubes and drains: peripheral HEENT: normocephalic, atraumatic, anicteric, O2 via NC Neck: supple Respiratory/Chest: lungs clear, no respiratory distress Cardiovascular/Chest: normal rate, SR with 1 st degree AV block Abdomen: non tender, soft, feeding tube - G tube Extremities: BL foot TMA Neurologic: abnormal gait, alert, confused, responsive Musculoskeletal: atrophy - BLE Laboratory Tests 12/05/19 16:20: POC Whole Blood Glucose 226H 12/06/19 00:25: POC Whole Blood Glucose [Pending] 12/06/19 06:19: POC Whole Blood Glucose [Pending] Current Medications Medications (Trade) Dose Ordered Sig/Cammy Route PRN Reason Start Time Stop Time Status Last Admin Dose Admin Allopurinol (allopurinoL) 300 mg DAILY ORAL 11/26/19 10:30 12/24/19 10:29 12/06/19 09:25 Amiodarone HCl (Cordarone) 200 mg EVERY 12 HOURS ORAL 12/04/19 21:00 03/03/20 20:59 12/06/19 09:25 Amlodipine Besylate (Norvasc) 5 mg Q12HR GT 11/28/19 21:00 12/24/19 10:29 12/06/19 09:25 Apixaban (Eliquis) 2.5 mg BID ORAL 11/26/19 10:30 02/22/20 10:29 12/06/19 09:25 Atorvastatin Calcium (Lipitor) 10 mg BEDTIME ORAL 11/26/19 21:00 02/22/20 20:59 12/05/19 20:50 Chlorhexidine Gluconate (Yi-Hex 2%) 1 applic DAILY@1999 TOPIC 11/26/19 20:00 02/24/20 19:59 12/05/19 20:52 Dextrose (Dextrose 50%) 25 ml Q30M PRN IV Hypoglycemia 12/03/19 10:30 03/02/20 10:29 Dextrose (Dextrose 50%) 50 ml Q30M PRN IV Hypoglycemia 12/03/19 10:30 03/02/20 10:29 Diphenhydramine HCl (Benadryl) 25 mg Q8H PRN NG Itching 12/03/19 09:30 01/02/20 09:29 12/04/19 12:28 Docusate Sodium (Colace) 100 mg THREE TIMES A DAY NG 11/28/19 13:00 12/28/19 12:59 12/06/19 09:25 Epoetin William (Epoetin William(ESRD on dialysis)) 10,000 unit FRI-FRI-FRI SUBQ 12/01/19 21:00 02/29/20 20:59 12/03/19 23:38 Insulin Aspart (NovoLOG) Q6HR SUBQ 12/03/19 12:00 03/02/20 11:59 12/06/19 06:22 Lansoprazole (Prevacid) 30 mg DAILY GT 11/28/19 10:45 12/28/19 10:44 12/06/19 09:25 Metoprolol Tartrate (Lopressor) 12.5 mg Q12HR GT 11/29/19 09:00 02/27/20 08:59 12/06/19 09:25 Sennosides (Senokot) 8.6 mg DAILY PRN ORAL Constipation 11/26/19 10:30 12/26/19 10:29 Assessment/Plan Assessment/Plan ASSESSMENT Prior acute hypoxemic hypercapnic respiratory failure requiring BiPAP Chronic CO2 retention Possible DAYANA Aspiration risk s/p recent PNA Dysphagia , s/p PEG , pulled out, s/p replacement of PEG 11/16 Acute kidney injury on chronic kidney disease, requiring start of HD 10/30 Anemia of chronic kidney disease PAF/flutter- converted to SR Diabetes mellitus HTN PVD with hx of bilateral foot MTA Refusal of care PLAN OF CARE tele BiPAP at HS and prn , refusing again currently on O2 3 L via NC titrate O2, pulm toilet patient likely has DAYANA. recommend sleep study as OP CXR 11/28 mild vascular congestion and small bilateral pleural effusions, slightly improved when compared to October 31, 2019. No pneumothorax. Cardiomegaly. Calcified aorta. ABG prn rapid COVID NGT, BiPAP prn and HS-continued to refuse developed A flutter/ fib 12/03 seen by cardio already spontaneously converter to SR on a/c with Eliquis, rate controlled with BB ECHO with pEF 55-60% rate control with BB, HR stable on chronic a/c , was on hold for PEG, Eliquis afterwards resumed BP management with CCB and BB, optimize as needed continue statin ethics eval if pt can refuse BiPAP ( patient with dementia, confusion), daughter wants BiPAP and unclear how he refused if was on restraints? in our opinion BiPAP should be on standing order and available in the facility when patient will be transferred need formal polysomnogram to be done as OP bioethics eval appreciated, done 11/25 . per bioethics: pt with diminished capacity and does not understand the consequences of refusing bi-pap, yet it seems inhumane to force him to endure it recommended that he should be discharged to the SNF on nasal canula with instructions not to be sent back to the acute care hospital for refusal to accept bi-pap. bioethics offered to have a family conference to explain the reasoning if the family is willing to speak with us. SHERRIE spoke with daughter and ( through RN field control inspector) re further GOC and code status 11/29 daughter and decided on DNR/DNI status , which was relayed to me by SHERRIE Dr Pabon spoke with Dr Chang, per attending patient remains full code dc plan to SNF ; SHERRIE discussed with family ( not want [facility]) completed Rx for PNA on prior admission Venous Duplex BLE 10/25 -> NGT aspir precautions, new BSSE pending TF via GT for now protein supplements HD as per nephro recs monitor volumes, renal paramerts, lytes s/p placement of permanent HD catheter R chest 11/07 s/p removal of temporary HD catheter by surgeon prior HgA1c -6.1 hold oral anti-glycemic monitor HH with goal to keep Hgb above 7 anemia w/up prior noted , heme on board on EPO GI prophayxlis supportive care dc plan in progress case discussed and evaluated by supervising physician Leoncio Galan MD 12/06/19 1054: Subjective Allergies: Coded Allergies: PENICILLINS (Verified Allergy, Unknown, 10/25/19) tolerated Ceftriaxone Uncoded Allergies: PENICILLIN (Allergy, Unknown, 11/23/19) Assessment/Plan Assessment/Plan Patient seen and examined with SOUNDSCRIBER MECHANIC and I agree with the above formulated assessment and plan. Reema Hanna SOUNDSCRIBER MECHANIC Dec 06, 2019 10:18 Leoncio Galan MD Dec 06, 2019 10:54
[2019-12-06 10:47] LABS: BASOPHILS % (AUTO) 0.9 % (0.0-2.0); EOSINOPHILS % (AUTO) 0.9 % (0.0-3.0); HEMATOCRIT 31.9 % (42.0-52.0); HEMOGLOBIN 9.9 G/DL (14.2-18.0); LYMPHOCYTES % (AUTO) 14.3 % (20.0-45.0); MEAN CORPUSCULAR VOLUME 91 FL (80-99); MONOCYTES % (AUTO) 7.3 % (1.0-10.0); NEUTROPHILS % (AUTO) 76.7 % (45.0-75.0); PLATELET COUNT 298 K/UL (150-450); RED CELL DISTRIBUTION WIDTH 15.1 % (11.6-14.8); WHITE BLOOD COUNT 10.3 K/UL (4.8-10.8)
[2019-12-06 10:52] LABS: CALCIUM 8.9 MG/DL (8.5-10.1); CREATININE 4.2 MG/DL (0.55-1.30); POTASSIUM 4.4 MMOL/L (3.5-5.1)
[2019-12-06 10:58] LABS: ALBUMIN 2.9 G/DL (3.4-5.0); ALBUMIN/GLOBULIN RATIO 0.6 (1.0-2.7); BILIRUBIN,TOTAL 0.5 MG/DL (0.2-1.0); PHOSPHORUS 3.9 MG/DL (2.5-4.9)
[2019-12-06 12:00] VITALS: BP 137/49
--- NOTE | 2019-12-06 14:04 | Nephrology Progress Note ---
Assessment/Plan Problem List: (1) Respiratory distress (2) Diabetes mellitus (3) Hypertension (4) Renal failure (ARF), acute on chronic Assessment Patient's current problem is dyspnea Most likely volume overload versus pneumonitis Other conditions: Renal failure (ARF), acute on chronic h/o Metabolic acidosis h/oElectrolyte imbalance Hyponatremia and hyperkalemia h/oAnemia h/o CHF (congestive heart failure) Plan December 05: Labs reviewed. Serum creatinine up to 4.2. Calculated GFR 13. Last dialysis December 02. Will order dialysis tomorrow. December 04: Status quo. Labs reviewed. Continue per current management. December 03: Patient was dialyzed yesterday. Labs reviewed. Continue per current management. December 02: Due for dialysis today. Blood pressure medications on hold. Albumin 25% for BP support during dialysis. Continue to monitor renal parameters. December 01: Labs reviewed. Medication reviewed. Creatinine higher. Hemodialysis for tomorrow. Continue rest. November 30: Patient was last dialyzed November 28. Not in any distress now. Appears to be more verbal today. Labs reviewed. Creatinine 3.8. Hemoglobin lower at 7.9. 1 dose of IV iron ordered. Subcu Epogen ordered. November 29: Dialyzed yesterday. Status quo. Will check chemistry panel tomorrow. Dialysis as needed. Continue per PMD and consultants. November 28: Due for dialysis and ultrafiltration today. Labs and medications reviewed. Blood pressure is stable. November 27: BNP rising. Not much urine output. Will dialyze and ultrafiltrate tomorrow. Labs reviewed. Continue to adjust blood pressure medications. Continue per consultants. November 26: Last dialysis November 24. Status quo. Labs reviewed. Medication list reviewed. Continue to monitor renal parameters. Dialysis as needed. November 25: Patient was dialyzed yesterday. Today is due for insertion of a GT tube. Patient pulled out his previous GT tube. Labs reviewed. Electrolytes abnormalities adjusted. Continue to monitor renal parameters. Patient is off BiPAP and on nasal cannula now. I believe that upon discharge the patient requires 2-3 times a week dialysis and ultrafiltration however upon discharge the patient needs to be followed by a intermediate designer in the facility that he goes to to assess on a regular basis the need and frequency for dialysis. November 24 : Late [place] [facility] [place] due for dialysis and ultrafiltration today. Labs reviewed. Chest x-ray results not available on EMR. Last dialysis November 21. Continue pulmonary toilet. Patient remains on BiPAP. Will check labs tomorrow. Subjective ROS Limited/Unobtainable: Yes Objective Objective Last 24 Hour Vital Signs Date Time Temp Pulse Resp B/P (MAP) Pulse Ox O2 Delivery O2 Flow Rate FiO2 12/06/19 12:00 97.5 80 22 137/49 (78) 98 12/06/19 09:25 64 146/55 12/06/19 09:25 64 146/55 12/06/19 09:00 Nasal Cannula 2.0 12/06/19 08:00 96.8 66 21 155/53 (87) 95 12/06/19 08:00 65 12/06/19 04:00 97.9 65 23 146/55 (85) 98 12/06/19 04:00 64 12/06/19 00:00 64 12/06/19 00:00 98.0 73 20 149/93 (111) 98 12/05/19 21:00 Nasal Cannula 2.0 12/05/19 20:52 67 147/60 12/05/19 20:51 67 147/60 12/05/19 20:08 98 Nasal Cannula 2.0 28 12/05/19 20:00 68 12/05/19 20:00 97.1 67 21 147/60 (89) 98 12/05/19 16:00 97.3 65 22 154/53 (86) 98 12/05/19 16:00 2.0 Intake and Output 12/05/19 12/06/19 19:00 07:00 Intake Total 640 ml 560 ml Balance 640 ml 560 ml Intake Free Water 160 ml 120 ml Tube Feeding 480 ml 440 ml # Voids 2 2 # Bowel Movements 1 1 Laboratory Tests 12/05/19 16:20: POC Whole Blood Glucose 226H 12/06/19 00:25: POC Whole Blood Glucose [Pending] 12/06/19 06:19: POC Whole Blood Glucose [Pending] 12/06/19 09:50: White Blood Count 10.3, Red Blood Count 3.50L, Hemoglobin 9.9L, Hematocrit 31.9L , Mean Corpuscular Volume 91, Mean Corpuscular Hemoglobin 28.4, Mean Corpuscular Hemoglobin Concent 31.1L, Red Cell Distribution Width 15.1H, Platelet Count 298, Mean Platelet Volume 7.4, Neutrophils (%) (Auto) 76.7H, Lymphocytes (%) (Auto) 14.3L, Monocytes (%) (Auto) 7.3, Eosinophils (%) (Auto) 0.9, Basophils (%) (Auto) 0.9, Sodium Level 137, Potassium Level 4.4, Chloride Level 97L, Carbon Dioxide Level 33H, Anion Gap 7, Blood Urea Nitrogen 87H, Creatinine 4.2H, Estimat Glomerular Filtration Rate 13.7, Glucose Level 206H, Calcium Level 8.9, Phosphorus Level 3.9, Magnesium Level 3.1H, Total Bilirubin 0.5, Aspartate Amino Transf (AST/SGOT) 17, Alanine Aminotransferase (ALT/SGPT) 15, Alkaline Phosphatase 208H, Total Protein 7.6, Albumin 2.9L, Globulin 4.7, Albumin/Globulin Ratio 0.6L 12/06/19 12:02: POC Whole Blood Glucose [Pending] Height (Feet): 5 Height (Inches): 5.00 Weight (Pounds): 169 General Appearance: no apparent distress, lethargic Cardiovascular: normal rate Respiratory/Chest: decreased breath sounds Abdomen: soft Objective No change Naveed Vanegas MD Dec 06, 2019 14:04
--- NOTE | 2019-12-06 14:16 | Cardiac Electrophysiology PN ---
Assessment/Plan Assessment/Plan 1. Atrial flutter. 12-lead EKG is typical atrial flutter. Echo EF 55%. Ruled out for [place] protocol. Continue Amiodarone 200 bid, metoprolol 12.5 mg b.i.d. and Eliquis. In SR today 2. Hypertension, on metoprolol 12.5 mg bid and amlodipine 5 mg b.i.d., on hemodialysis. 3. Hyperlipidemia, on Lipitor. 4. End-stage renal disease, on hemodialysis. 5. Diabetes on insulin. 6. DNR/DNI status as of December 03, 2019. 7. COPD, off BiPAP. 8. Peripheral vascular disease, status post bilateral transmetatarsal amputation. 9. Confusion, in restraint. FREDERIC RN Subjective Subjective Confused in restraints in NAD. In Atrial fib/flutter with controlled rate Objective Last 24 Hour Vital Signs Date Time Temp Pulse Resp B/P (MAP) Pulse Ox O2 Delivery O2 Flow Rate FiO2 12/06/19 12:00 97.5 80 22 137/49 (78) 98 12/06/19 09:25 64 146/55 12/06/19 09:25 64 146/55 12/06/19 09:00 Nasal Cannula 2.0 12/06/19 08:00 96.8 66 21 155/53 (87) 95 12/06/19 08:00 65 12/06/19 04:00 97.9 65 23 146/55 (85) 98 12/06/19 04:00 64 12/06/19 00:00 64 12/06/19 00:00 98.0 73 20 149/93 (111) 98 12/05/19 21:00 Nasal Cannula 2.0 12/05/19 20:52 67 147/60 12/05/19 20:51 67 147/60 12/05/19 20:08 98 Nasal Cannula 2.0 28 12/05/19 20:00 68 12/05/19 20:00 97.1 67 21 147/60 (89) 98 12/05/19 16:00 97.3 65 22 154/53 (86) 98 12/05/19 16:00 2.0 Intake and Output 12/05/19 12/06/19 19:00 07:00 Intake Total 640 ml 560 ml Balance 640 ml 560 ml Intake Free Water 160 ml 120 ml Tube Feeding 480 ml 440 ml # Voids 2 2 # Bowel Movements 1 1 Laboratory Tests Test 12/05/19 16:20 12/06/19 00:25 12/06/19 06:19 12/06/19 09:50 POC Whole Blood Glucose 226 MG/DL (74-106) H Pending Pending White Blood Count 10.3 K/UL (4.8-10.8) Red Blood Count 3.50 M/UL (4.70-6.10) L Hemoglobin 9.9 G/DL (14.2-18.0) L Hematocrit 31.9 % (42.0-52.0) L Mean Corpuscular Volume 91 FL (80-99) Mean Corpuscular Hemoglobin 28.4 PG (27.0-31.0) Mean Corpuscular Hemoglobin Concent 31.1 G/DL (32.0-36.0) L Red Cell Distribution Width 15.1 % (11.6-14.8) H Platelet Count 298 K/UL (150-450) Mean Platelet Volume 7.4 FL (6.5-10.1) Neutrophils (%) (Auto) 76.7 % (45.0-75.0) H Lymphocytes (%) (Auto) 14.3 % (20.0-45.0) L Monocytes (%) (Auto) 7.3 % (1.0-10.0) Eosinophils (%) (Auto) 0.9 % (0.0-3.0) Basophils (%) (Auto) 0.9 % (0.0-2.0) Sodium Level 137 MMOL/L (136-145) Potassium Level 4.4 MMOL/L (3.5-5.1) Chloride Level 97 MMOL/L (98-107) L Carbon Dioxide Level 33 MMOL/L (21-32) H Anion Gap 7 mmol/L (5-15) Blood Urea Nitrogen 87 mg/dL (7-18) H Creatinine 4.2 MG/DL (0.55-1.30) H Estimat Glomerular Filtration Rate 13.7 mL/min (>60) Glucose Level 206 MG/DL (74-106) H Calcium Level 8.9 MG/DL (8.5-10.1) Phosphorus Level 3.9 MG/DL (2.5-4.9) Magnesium Level 3.1 MG/DL (1.8-2.4) H Total Bilirubin 0.5 MG/DL (0.2-1.0) Aspartate Amino Transf (AST/SGOT) 17 U/L (15-37) Alanine Aminotransferase (ALT/SGPT) 15 U/L (12-78) Alkaline Phosphatase 208 U/L (46-116) H Total Protein 7.6 G/DL (6.4-8.2) Albumin 2.9 G/DL (3.4-5.0) L Globulin 4.7 g/dL Albumin/Globulin Ratio 0.6 (1.0-2.7) L Test 12/06/19 12:02 POC Whole Blood Glucose Pending Objective NECK: No JVD. LUNGS: Clear. He has dialysis access in the right IJ. CARDIOVASCULAR: Irregular S1 and S2 with no gallop. ABDOMEN: Status post G-tube. EXTREMITIES: Status post bilateral transmetatarsal amputation. Chris Valentin MD Dec 06, 2019 14:16
[2019-12-06 16:00] VITALS: BP 130/51
[2019-12-06] MEDS ORDERED: Tubing Blood Filter IV ONE (18:43)
[2019-12-06 20:00] VITALS: BP 125/48
--- NOTE | 2019-12-06 21:14 | General Progress Note ---
Subjective Constitutional: Reports: no symptoms HEENT: Reports: no symptoms Cardiovascular: Reports: no symptoms Respiratory: Reports: no symptoms Gastrointestinal/Abdominal: Reports: no symptoms Genitourinary: Reports: no symptoms Neurologic/Psychiatric: Reports: no symptoms Allergies: Coded Allergies: PENICILLINS (Verified Allergy, Unknown, 10/25/19) tolerated Ceftriaxone Uncoded Allergies: PENICILLIN (Allergy, Unknown, 11/23/19) Objective Last 24 Hour Vital Signs Date Time Temp Pulse Resp B/P (MAP) Pulse Ox O2 Delivery O2 Flow Rate FiO2 12/06/19 16:00 64 12/06/19 16:00 96.6 71 20 130/51 (77) 96 12/06/19 12:00 97.5 80 22 137/49 (78) 98 12/06/19 12:00 60 12/06/19 09:25 64 146/55 12/06/19 09:25 64 146/55 12/06/19 09:00 Nasal Cannula 2.0 12/06/19 08:00 96.8 66 21 155/53 (87) 95 12/06/19 08:00 65 12/06/19 04:00 97.9 65 23 146/55 (85) 98 12/06/19 04:00 64 12/06/19 00:00 64 12/06/19 00:00 98.0 73 20 149/93 (111) 98 Intake and Output 12/05/19 12/06/19 19:00 07:00 Intake Total 640 ml 560 ml Balance 640 ml 560 ml Intake Free Water 160 ml 120 ml Tube Feeding 480 ml 440 ml # Voids 2 2 # Bowel Movements 1 1 Laboratory Tests 12/06/19 00:25: POC Whole Blood Glucose [Pending] 12/06/19 06:19: POC Whole Blood Glucose [Pending] 12/06/19 09:50: White Blood Count 10.3, Red Blood Count 3.50L, Hemoglobin 9.9L, Hematocrit 31.9L , Mean Corpuscular Volume 91, Mean Corpuscular Hemoglobin 28.4, Mean Corpuscular Hemoglobin Concent 31.1L, Red Cell Distribution Width 15.1H, Platelet Count 298, Mean Platelet Volume 7.4, Neutrophils (%) (Auto) 76.7H, Lymphocytes (%) (Auto) 14.3L, Monocytes (%) (Auto) 7.3, Eosinophils (%) (Auto) 0.9, Basophils (%) (Auto) 0.9, Sodium Level 137, Potassium Level 4.4, Chloride Level 97L, Carbon Dioxide Level 33H, Anion Gap 7, Blood Urea Nitrogen 87H, Creatinine 4.2H, Estimat Glomerular Filtration Rate 13.7, Glucose Level 206H, Calcium Level 8.9, Phosphorus Level 3.9, Magnesium Level 3.1H, Total Bilirubin 0.5, Aspartate Amino Transf (AST/SGOT) 17, Alanine Aminotransferase (ALT/SGPT) 15, Alkaline Phosphatase 208H, Total Protein 7.6, Albumin 2.9L, Globulin 4.7, Albumin/Globulin Ratio 0.6L 12/06/19 12:02: POC Whole Blood Glucose [Pending] Height (Feet): 5 Height (Inches): 5.00 Weight (Pounds): 169 General Appearance: alert, lethargic EENT: normal ENT inspection Neck: supple Cardiovascular: normal rate, regular rhythm, no gallop/murmur, no JVD Respiratory/Chest: lungs clear, normal breath sounds, no respiratory distress Abdomen: normal bowel sounds, non tender, soft, no organomegaly, no mass Extremities: non-tender Edema: trace edema Neurologic: alert, responsive Ayush Chang MD Dec 06, 2019 21:14
[2019-12-06] MEDS: Epoetin Alfa-EPBX(ESRD on dialysis)10,000 unit/ml vial SUBQ SCH (21:36)
[2019-12-06] MEDS: Dyna-Hex 2% Top Sol 2oz TOPIC SCH (21:36)
[2019-12-07] VITALS: BP 120/47
[2019-12-07] MEDS: NovoLOG Insulin Flexpen SUBQ SCH ×4 (00:39→17:19)
[2019-12-07 04:00] VITALS: BP 95/49
--- NOTE | 2019-12-07 06:52 | General Progress Note ---
Assessment/Plan Problem List: (1) Hypertension ICD Codes: I10 - Essential (primary) hypertension SNOMED: 08786801 (2) Diabetes mellitus ICD Codes: E11.9 - Type 2 diabetes mellitus without complications SNOMED: 28912220 (3) Cholelithiasis ICD Codes: K80.20 - Calculus of gallbladder without cholecystitis without obstruction SNOMED: 713673923 Assessment/Plan: dysphagia s/p GT placement GTF monitor for residuals fu H&H prn blood transfusion Subjective ROS Limited/Unobtainable: No Allergies: Coded Allergies: PENICILLINS (Verified Allergy, Unknown, 10/25/19) tolerated Ceftriaxone Uncoded Allergies: PENICILLIN (Allergy, Unknown, 11/23/19) Objective Last 24 Hour Vital Signs Date Time Temp Pulse Resp B/P (MAP) Pulse Ox O2 Delivery O2 Flow Rate FiO2 12/07/19 04:00 60 12/07/19 00:00 98.9 61 22 120/47 (71) 98 12/07/19 00:00 62 12/06/19 21:33 97 Nasal Cannula 2.0 28 12/06/19 21:00 Nasal Cannula 2.0 12/06/19 21:00 64 125/48 12/06/19 21:00 64 125/48 12/06/19 20:00 97.7 64 20 125/48 (73) 100 12/06/19 20:00 61 12/06/19 16:00 64 12/06/19 16:00 96.6 71 20 130/51 (77) 96 12/06/19 12:00 97.5 80 22 137/49 (78) 98 12/06/19 12:00 60 12/06/19 09:25 64 146/55 12/06/19 09:25 64 146/55 12/06/19 09:00 Nasal Cannula 2.0 12/06/19 08:00 96.8 66 21 155/53 (87) 95 12/06/19 08:00 65 Intake and Output 12/06/19 12/07/19 19:00 07:00 Intake Total 480 ml Balance 480 ml Tube Feeding 480 ml # Voids 2 Laboratory Tests 12/06/19 09:50: White Blood Count 10.3, Red Blood Count 3.50L, Hemoglobin 9.9L, Hematocrit 31.9L , Mean Corpuscular Volume 91, Mean Corpuscular Hemoglobin 28.4, Mean Corpuscular Hemoglobin Concent 31.1L, Red Cell Distribution Width 15.1H, Platelet Count 298, Mean Platelet Volume 7.4, Neutrophils (%) (Auto) 76.7H, Lymphocytes (%) (Auto) 14.3L, Monocytes (%) (Auto) 7.3, Eosinophils (%) (Auto) 0.9, Basophils (%) (Auto) 0.9, Sodium Level 137, Potassium Level 4.4, Chloride Level 97L, Carbon Dioxide Level 33H, Anion Gap 7, Blood Urea Nitrogen 87H, Creatinine 4.2H, Estimat Glomerular Filtration Rate 13.7, Glucose Level 206H, Calcium Level 8.9, Phosphorus Level 3.9, Magnesium Level 3.1H, Total Bilirubin 0.5, Aspartate Amino Transf (AST/SGOT) 17, Alanine Aminotransferase (ALT/SGPT) 15, Alkaline Phosphatase 208H, Total Protein 7.6, Albumin 2.9L, Globulin 4.7, Albumin/Globulin Ratio 0.6L 12/06/19 12:02: POC Whole Blood Glucose [Pending] 12/07/19 00:28: POC Whole Blood Glucose [Pending] 12/07/19 05:29: POC Whole Blood Glucose 146H Height (Feet): 5 Height (Inches): 5.00 Weight (Pounds): 169 General Appearance: no apparent distress EENT: PERRL/EOMI Neck: supple Cardiovascular: normal rate Respiratory/Chest: decreased breath sounds Abdomen: normal bowel sounds, non tender, soft Extremities: non-tender Lawrence Humphreys MD Dec 07, 2019 06:52
[2019-12-07 08:00] VITALS: BP 136/43
--- NOTE | 2019-12-07 08:21 | Hematology/Onc Progress Note ---
Assessment/Plan Assessment/Plan ASSESSMENT AND RECOMMENDATIONS: # Anemia of chronic disease due to underlying chronic medical issues, multifactorial --> Anemia w/u has been reviewed. --> no evidence of hemolysis is noted, peripheral smear has been reviewed --> hgb goal is >7, transfuse as needed --> currently remains stable, occult blood negative --> hgb 8.4->8.6->8.3->8->8.2->9.2-->9.2->8.9-->8.1-->8.7>9.4-->8.7-->8->7.8-> 7.5-->7.4-->7.5-->8.1-->8-->8.1-->9.5->7.9-->7.6-->7.5 --> 1 unit prbc 12/03 --> some blood loss due to hematuria after inflated reyes pulled 8/6 am --> EPOGEN Started # Thrombocytopenia is likely due to infection --> plt trend 180-->149-->274 --> on abx as needed --> hep and hiv neg #. Leukocytosis with underlying infectionv stress reaction HISTORY --> per id and better --> for infection, ABX ctx/vanc-->off --> wbc 10-->5.9 # Acute kidney injury r/o potential reversible component --> reviewed meds, those that are renally cleared removed --> as per renal recs, appreciated --> cr 3.5-->4.2-->3.4->3.3 --> Hd started and dw renal # Hypertension, essential --> sbp goal is <140, consider anti-htn as needed --> currently started on hyralazine 25mg po q6h prn sbp >140 # CHF - hx of CHf --> diuresis with lasix as needed --> cardiology recs appreciated prior adm #. Bilateral lower extremity amputee, metatarsal several years ago --> stable #. Atrial fibrillation --> as per cards recs #. Dysphagia s/p peg --> peg pulled out and now with gtube 11/25 #. Hyperkalemia --> kayxelate as needed #. Agitation requires restraints #. Dvt ppx scds --> xarelto=> off-->eliquis-->off The time the note was entered does not necessarily correspond to the time the patient was seen. GREATLY APPRECIATE CONSULTATION. Subjective Allergies: Coded Allergies: PENICILLINS (Verified Allergy, Unknown, 10/25/19) tolerated Ceftriaxone Uncoded Allergies: PENICILLIN (Allergy, Unknown, 11/23/19) All Systems: reviewed and negative except above Subjective /2 came back from new snf due to lack of bipap capability, hgb 7.5 11/24 labs reviewed, remains sob, with a hgb 8.1, no bleeding, jag rn, hold off prbc 11/25 labs are noted, for egd and peg in the am, jag rn, on nc 11/27 getting 3l nc overnight, has been refusing bipap unfortunately, hgb stable 11/28 labs noted, with gtube feeds, again this am refusing bipap 11/29 is on 2l nc, with gtube feeds, hgb 9.5, no bleeding 11/30 labs are noted, no bleeding, on gtube feeds, on 2l nc 12/01 meds noted, no bleeding, hgb 7.9 yesterday, on nc 12/02 is on nepro and on 2l, hgb 7.6, c/o itching, have started benadryl q 8h prn 12/04 labs reviewed, coverning for Dr. Chang, no bleeding, meds noted, wants restraints off 12/05 labs are noted, no bleeding, no night sweats, with gtube feeds ongoing 12/06 labs reviewed, no bleeding, meds noted, no major changes, peg+ Objective Objective Current Medications Medications (Trade) Dose Ordered Sig/Cammy Route PRN Reason Start Time Stop Time Status Last Admin Dose Admin Allopurinol (allopurinoL) 300 mg DAILY ORAL 11/26/19 10:30 12/24/19 10:29 12/06/19 09:25 Amiodarone HCl (Cordarone) 200 mg EVERY 12 HOURS ORAL 12/04/19 21:00 03/03/20 20:59 12/06/19 09:25 Amlodipine Besylate (Norvasc) 5 mg Q12HR GT 11/28/19 21:00 12/24/19 10:29 12/06/19 09:25 Apixaban (Eliquis) 2.5 mg BID ORAL 11/26/19 10:30 02/22/20 10:29 12/06/19 18:15 Atorvastatin Calcium (Lipitor) 10 mg BEDTIME ORAL 11/26/19 21:00 02/22/20 20:59 12/06/19 21:38 Chlorhexidine Gluconate (Yi-Hex 2%) 1 applic DAILY@1999 TOPIC 11/26/19 20:00 02/24/20 19:59 12/06/19 21:36 Dextrose (Dextrose 50%) 25 ml Q30M PRN IV Hypoglycemia 12/03/19 10:30 03/02/20 10:29 Dextrose (Dextrose 50%) 50 ml Q30M PRN IV Hypoglycemia 12/03/19 10:30 03/02/20 10:29 Diphenhydramine HCl (Benadryl) 25 mg Q8H PRN NG Itching 12/03/19 09:30 01/02/20 09:29 12/04/19 12:28 Docusate Sodium (Colace) 100 mg THREE TIMES A DAY NG 11/28/19 13:00 12/28/19 12:59 12/06/19 18:15 Epoetin William (Epoetin William(ESRD on dialysis)) 10,000 unit SUBQ 12/01/19 21:00 02/29/20 20:59 12/06/19 21:36 Insulin Aspart (NovoLOG) Q6HR SUBQ 12/03/19 12:00 03/02/20 11:59 12/07/19 05:32 Lansoprazole (Prevacid) 30 mg DAILY GT 11/28/19 10:45 12/28/19 10:44 12/06/19 09:25 Metoprolol Tartrate (Lopressor) 12.5 mg Q12HR GT 11/29/19 09:00 02/27/20 08:59 12/06/19 09:25 Sennosides (Senokot) 8.6 mg DAILY PRN ORAL Constipation 11/26/19 10:30 12/26/19 10:29 Last 24 Hour Vital Signs Date Time Temp Pulse Resp B/P (MAP) Pulse Ox O2 Delivery O2 Flow Rate FiO2 12/07/19 04:00 60 12/07/19 04:00 98.6 66 22 95/49 (64) 98 12/07/19 00:00 98.9 61 22 120/47 (71) 98 12/07/19 00:00 62 12/06/19 21:33 97 Nasal Cannula 2.0 28 12/06/19 21:00 Nasal Cannula 2.0 12/06/19 21:00 64 125/48 12/06/19 21:00 64 125/48 12/06/19 20:00 97.7 64 20 125/48 (73) 100 12/06/19 20:00 61 12/06/19 16:00 64 12/06/19 16:00 96.6 71 20 130/51 (77) 96 12/06/19 12:00 97.5 80 22 137/49 (78) 98 12/06/19 12:00 60 12/06/19 09:25 64 146/55 12/06/19 09:25 64 146/55 12/06/19 09:00 Nasal Cannula 2.0 12/06/19 08:00 96.8 66 21 155/53 (87) 95 12/06/19 08:00 65 12/06/19 04:00 97.9 65 23 146/55 (85) 98 12/06/19 04:00 64 12/06/19 00:00 64 12/06/19 00:00 98.0 73 20 149/93 (111) 98 12/05/19 21:00 Nasal Cannula 2.0 12/05/19 20:52 67 147/60 12/05/19 20:51 67 147/60 12/05/19 20:08 98 Nasal Cannula 2.0 28 12/05/19 20:00 68 12/05/19 20:00 97.1 67 21 147/60 (89) 98 12/05/19 16:00 97.3 65 22 154/53 (86) 98 12/05/19 16:00 2.0 12/05/19 12:00 97.6 64 20 154/54 (87) 98 12/05/19 12:00 66 12/05/19 12:00 2.0 12/05/19 09:40 Nasal Cannula 2.0 12/05/19 08:38 67 139/65 9/13/20 08:37 67 139/65 Intake and Output 12/06/19 12/07/19 19:00 07:00 Intake Total 480 ml Balance 480 ml Tube Feeding 480 ml # Voids 2 Labs Test 12/04/19 11:43 12/05/19 08:08 12/05/19 16:20 12/06/19 00:25 POC Whole Blood Glucose 189 MG/DL (74-106) 226 MG/DL (74-106) Troponin I 0.000 ng/mL (0.000-0.056) Test 12/06/19 06:19 12/06/19 09:50 12/06/19 12:02 12/07/19 00:28 White Blood Count 10.3 K/UL (4.8-10.8) Red Blood Count 3.50 M/UL (4.70-6.10) Hemoglobin 9.9 G/DL (14.2-18.0) Hematocrit 31.9 % (42.0-52.0) Mean Corpuscular Volume 91 FL (80-99) Mean Corpuscular Hemoglobin 28.4 PG (27.0-31.0) Mean Corpuscular Hemoglobin Concent 31.1 G/DL (32.0-36.0) Red Cell Distribution Width 15.1 % (11.6-14.8) Platelet Count 298 K/UL (150-450) Mean Platelet Volume 7.4 FL (6.5-10.1) Neutrophils (%) (Auto) 76.7 % (45.0-75.0) Lymphocytes (%) (Auto) 14.3 % (20.0-45.0) Monocytes (%) (Auto) 7.3 % (1.0-10.0) Eosinophils (%) (Auto) 0.9 % (0.0-3.0) Basophils (%) (Auto) 0.9 % (0.0-2.0) Sodium Level 137 MMOL/L (136-145) Potassium Level 4.4 MMOL/L (3.5-5.1) Chloride Level 97 MMOL/L (98-107) Carbon Dioxide Level 33 MMOL/L (21-32) Anion Gap 7 mmol/L (5-15) Blood Urea Nitrogen 87 mg/dL (7-18) Creatinine 4.2 MG/DL (0.55-1.30) Estimat Glomerular Filtration Rate 13.7 mL/min (>60) Glucose Level 206 MG/DL (74-106) Calcium Level 8.9 MG/DL (8.5-10.1) Phosphorus Level 3.9 MG/DL (2.5-4.9) Magnesium Level 3.1 MG/DL (1.8-2.4) Total Bilirubin 0.5 MG/DL (0.2-1.0) Aspartate Amino Transf (AST/SGOT) 17 U/L (15-37) Alanine Aminotransferase (ALT/SGPT) 15 U/L (12-78) Alkaline Phosphatase 208 U/L (46-116) Total Protein 7.6 G/DL (6.4-8.2) Albumin 2.9 G/DL (3.4-5.0) Globulin 4.7 g/dL Albumin/Globulin Ratio 0.6 (1.0-2.7) Test 12/07/19 05:29 POC Whole Blood Glucose 146 MG/DL (74-106) Height (Feet): 5 Height (Inches): 5.00 Weight (Pounds): 169 Objective GENERAL: Not in acute distress. HEENT: ncat PULMONARY: Decreased breath sounds. ++ bipap v nc+ CHEST: ++permacath right chest CARDIOVASCULAR: Regular rate. No S3 or S4. ABDOMEN: Soft, nontender, nondistended.++peg EXTREMITIES: 1+ edema. No cyanosis, swelling, or edema. 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 Melvin Rizzo MD Dec 07, 2019 08:21
[2019-12-07] MEDS: Docusate 100mg/10ml Liq NG SCH ×3 (09:05→17:17)
[2019-12-07] MEDS: Eliquis 2.5mg tablet ORAL SCH ×2 (09:05→17:17)
[2019-12-07] MEDS: Metoprolol Tartrate 12.5mg TAB GT SCH ×2 (09:05→21:00)
[2019-12-07] MEDS: Amiodarone 200mg tab ORAL SCH ×2 (09:06→20:59)
--- NOTE | 2019-12-07 09:27 | Cardiac Electrophysiology PN ---
Assessment/Plan Assessment/Plan 1. Atrial flutter. 12-lead EKG is typical atrial flutter. Echo EF 55%. Ruled out for CT protocol. Continue Amiodarone 200 bid, metoprolol 12.5 mg b.i.d. and Eliquis. In SR today again 2. Hypertension, on metoprolol 12.5 mg bid ,amlodipine 5 mg b.i.d., on hemodialysis. 3. Hyperlipidemia, on Lipitor. 4. End-stage renal disease, on hemodialysis. 5. Diabetes on insulin. 6. DNR/DNI status as of December 03, 2019. 7. COPD, off BiPAP. 8. Peripheral vascular disease, status post bilateral transmetatarsal amputation. 9. Confusion, in restraint. FREDERIC RN Subjective Subjective Confused in restraints in NAD. In and out of atrial fib. PEG feeding On 2 liter NC Objective Last 24 Hour Vital Signs Date Time Temp Pulse Resp B/P (MAP) Pulse Ox O2 Delivery O2 Flow Rate FiO2 12/07/19 09:05 63 136/43 12/07/19 09:05 63 136/43 12/07/19 08:00 97.5 61 20 136/43 (74) 99 12/07/19 08:00 63 12/07/19 07:45 98 Nasal Cannula 2.0 28 12/07/19 04:00 60 12/07/19 04:00 98.6 66 22 95/49 (64) 98 12/07/19 00:00 98.9 61 22 120/47 (71) 98 12/07/19 00:00 62 12/06/19 21:33 97 Nasal Cannula 2.0 28 12/06/19 21:00 Nasal Cannula 2.0 12/06/19 21:00 64 125/48 12/06/19 21:00 64 125/48 12/06/19 20:00 97.7 64 20 125/48 (73) 100 12/06/19 20:00 61 12/06/19 16:00 64 12/06/19 16:00 96.6 71 20 130/51 (77) 96 12/06/19 12:00 97.5 80 22 137/49 (78) 98 12/06/19 12:00 60 Intake and Output 12/06/19 12/07/19 19:00 07:00 Intake Total 480 ml Balance 480 ml Tube Feeding 480 ml # Voids 2 Laboratory Tests Test 12/06/19 09:50 12/06/19 12:02 12/07/19 00:28 12/07/19 05:29 White Blood Count 10.3 K/UL (4.8-10.8) Red Blood Count 3.50 M/UL (4.70-6.10) L Hemoglobin 9.9 G/DL (14.2-18.0) L Hematocrit 31.9 % (42.0-52.0) L Mean Corpuscular Volume 91 FL (80-99) Mean Corpuscular Hemoglobin 28.4 PG (27.0-31.0) Mean Corpuscular Hemoglobin Concent 31.1 G/DL (32.0-36.0) L Red Cell Distribution Width 15.1 % (11.6-14.8) H Platelet Count 298 K/UL (150-450) Mean Platelet Volume 7.4 FL (6.5-10.1) Neutrophils (%) (Auto) 76.7 % (45.0-75.0) H Lymphocytes (%) (Auto) 14.3 % (20.0-45.0) L Monocytes (%) (Auto) 7.3 % (1.0-10.0) Eosinophils (%) (Auto) 0.9 % (0.0-3.0) Basophils (%) (Auto) 0.9 % (0.0-2.0) Sodium Level 137 MMOL/L (136-145) Potassium Level 4.4 MMOL/L (3.5-5.1) Chloride Level 97 MMOL/L (98-107) L Carbon Dioxide Level 33 MMOL/L (21-32) H Anion Gap 7 mmol/L (5-15) Blood Urea Nitrogen 87 mg/dL (7-18) H Creatinine 4.2 MG/DL (0.55-1.30) H Estimat Glomerular Filtration Rate 13.7 mL/min (>60) Glucose Level 206 MG/DL (74-106) H Calcium Level 8.9 MG/DL (8.5-10.1) Phosphorus Level 3.9 MG/DL (2.5-4.9) Magnesium Level 3.1 MG/DL (1.8-2.4) H Total Bilirubin 0.5 MG/DL (0.2-1.0) Aspartate Amino Transf (AST/SGOT) 17 U/L (15-37) Alanine Aminotransferase (ALT/SGPT) 15 U/L (12-78) Alkaline Phosphatase 208 U/L (46-116) H Total Protein 7.6 G/DL (6.4-8.2) Albumin 2.9 G/DL (3.4-5.0) L Globulin 4.7 g/dL Albumin/Globulin Ratio 0.6 (1.0-2.7) L POC Whole Blood Glucose Pending Pending 146 MG/DL (74-106) H Objective NECK: No JVD. LUNGS: Clear. He has dialysis access in the right IJ. CARDIOVASCULAR: Irregular S1 and S2 with no gallop. ABDOMEN: Status post G-tube. EXTREMITIES: Status post bilateral transmetatarsal amputation. Chris Valentin MD Dec 07, 2019 09:27
[2019-12-07 10:08] LABS: BASOPHILS % (AUTO) 2.9 % (0.0-2.0); HEMATOCRIT 27.6 % (42.0-52.0); HEMOGLOBIN 8.8 G/DL (14.2-18.0); LYMPHOCYTES % (AUTO) 16.2 % (20.0-45.0); MEAN CORPUSCULAR VOLUME 90 FL (80-99); NEUTROPHILS % (AUTO) 70.9 % (45.0-75.0); PLATELET COUNT 273 K/UL (150-450); RED BLOOD COUNT 3.07 M/UL (4.70-6.10); RED CELL DISTRIBUTION WIDTH 15.1 % (11.6-14.8); WHITE BLOOD COUNT 9.2 K/UL (4.8-10.8)
--- NOTE | 2019-12-07 10:31 | Pulmonology Progress Note ---
Reema Hanna VARNISH INSPECTOR 12/07/19 1031: Subjective ROS Limited/Unobtainable: No Allergies: Coded Allergies: PENICILLINS (Verified Allergy, Unknown, 10/25/19) tolerated Ceftriaxone Uncoded Allergies: PENICILLIN (Allergy, Unknown, 11/23/19) All Systems: reviewed and negative except above Subjective on tele on O2 2 L via NC, pulse ox stable no signs of resp distress off BiPAP and continued to decline it bioethics eval was done 11/25 SHERRIE spoke with daughter and 11/29 SHERRIE discussed with daughter bioethics recs and further GOC and code status daughter and decided on DNR/DNI status , which was relayed to me by SHERRIE in search of new SNF currently 12/03 developed paroxysmal aflutter/fib, seen by cardio, spontaneously back to SR dc plan pending, challenging placement Objective Last 24 Hour Vital Signs Date Time Temp Pulse Resp B/P (MAP) Pulse Ox O2 Delivery O2 Flow Rate FiO2 12/07/19 09:05 63 136/43 12/07/19 09:05 63 136/43 12/07/19 09:00 Nasal Cannula 2.0 12/07/19 08:00 97.5 61 20 136/43 (74) 99 12/07/19 08:00 63 12/07/19 07:45 98 Nasal Cannula 2.0 28 12/07/19 04:00 60 12/07/19 04:00 98.6 66 22 95/49 (64) 98 12/07/19 00:00 98.9 61 22 120/47 (71) 98 12/07/19 00:00 62 12/06/19 21:33 97 Nasal Cannula 2.0 28 12/06/19 21:00 Nasal Cannula 2.0 12/06/19 21:00 64 125/48 12/06/19 21:00 64 125/48 12/06/19 20:00 97.7 64 20 125/48 (73) 100 12/06/19 20:00 61 12/06/19 16:00 64 12/06/19 16:00 96.6 71 20 130/51 (77) 96 12/06/19 12:00 97.5 80 22 137/49 (78) 98 12/06/19 12:00 60 Intake and Output 12/06/19 12/07/19 19:00 07:00 Intake Total 480 ml Balance 480 ml Tube Feeding 480 ml # Voids 2 Objective General Appearance: alert , confused, Kyrgyz speaking Lines, tubes and drains: peripheral HEENT: normocephalic, atraumatic, anicteric, O2 via NC Neck: supple Respiratory/Chest: lungs clear, no respiratory distress Cardiovascular/Chest: normal rate, SR with 1 st degree AV block Abdomen: non tender, soft, feeding tube - G tube Extremities: BL foot TMA Neurologic: abnormal gait, alert, confused, responsive Musculoskeletal: atrophy - BLE Laboratory Tests 12/06/19 12:02: POC Whole Blood Glucose [Pending] 12/07/19 00:28: POC Whole Blood Glucose [Pending] 12/07/19 05:29: POC Whole Blood Glucose 146H 12/07/19 09:40: White Blood Count 9.2, Red Blood Count 3.07L, Hemoglobin 8.8L, Hematocrit 27.6L , Mean Corpuscular Volume 90, Mean Corpuscular Hemoglobin 28.6, Mean Corpuscular Hemoglobin Concent 31.8L, Red Cell Distribution Width 15.1H, Platelet Count 273, Mean Platelet Volume 6.5, Neutrophils (%) (Auto) 70.9, Lymphocytes (%) (Auto) 16.2L, Monocytes (%) (Auto) 8.0, Eosinophils (%) (Auto) 2.0, Basophils (%) (Auto) 2.9H Current Medications Medications (Trade) Dose Ordered Sig/Cammy Route PRN Reason Start Time Stop Time Status Last Admin Dose Admin Allopurinol (allopurinoL) 300 mg DAILY ORAL 11/26/19 10:30 12/24/19 10:29 12/07/19 09:06 Amiodarone HCl (Cordarone) 200 mg EVERY 12 HOURS ORAL 12/04/19 21:00 03/03/20 20:59 12/07/19 09:06 Amlodipine Besylate (Norvasc) 5 mg Q12HR GT 11/28/19 21:00 12/24/19 10:29 12/07/19 09:05 Apixaban (Eliquis) 2.5 mg BID ORAL 11/26/19 10:30 02/22/20 10:29 12/07/19 09:05 Atorvastatin Calcium (Lipitor) 10 mg BEDTIME ORAL 11/26/19 21:00 02/22/20 20:59 12/06/19 21:38 Chlorhexidine Gluconate (Yi-Hex 2%) 1 applic DAILY@2000 TOPIC 11/26/19 20:00 02/24/20 19:59 12/06/19 21:36 Dextrose (Dextrose 50%) 25 ml Q30M PRN IV Hypoglycemia 12/03/19 10:30 03/02/20 10:29 Dextrose (Dextrose 50%) 50 ml Q30M PRN IV Hypoglycemia 12/03/19 10:30 03/02/20 10:29 Diphenhydramine HCl (Benadryl) 25 mg Q8H PRN NG Itching 12/03/19 09:30 01/02/20 09:29 12/04/19 12:28 Docusate Sodium (Colace) 100 mg THREE TIMES A DAY NG 11/28/19 13:00 12/28/19 12:59 12/07/19 09:05 Epoetin William (Epoetin William(ESRD on dialysis)) 10,000 unit FRI-FRI-FRI SUBQ 12/01/19 21:00 02/29/20 20:59 12/06/19 21:36 Insulin Aspart (NovoLOG) Q6HR SUBQ 12/03/19 12:00 03/02/20 11:59 12/07/19 05:32 Lansoprazole (Prevacid) 30 mg DAILY GT 11/28/19 10:45 12/28/19 10:44 12/07/19 09:05 Metoprolol Tartrate (Lopressor) 12.5 mg Q12HR GT 11/29/19 09:00 02/27/20 08:59 12/07/19 09:05 Sennosides (Senokot) 8.6 mg DAILY PRN ORAL Constipation 11/26/19 10:30 12/26/19 10:29 Assessment/Plan Assessment/Plan ASSESSMENT Prior acute hypoxemic hypercapnic respiratory failure requiring BiPAP Chronic CO2 retention Possible DAYANA Aspiration risk s/p recent PNA Dysphagia , s/p PEG , pulled out, s/p replacement of PEG 11/16 Acute kidney injury on chronic kidney disease, requiring start of HD 10/30 Anemia of chronic kidney disease PAF/flutter- converted to SR Diabetes mellitus HTN PVD with hx of bilateral foot MTA Refusal of care PLAN OF CARE tele BiPAP at HS and prn , refusing again currently on O2 3 L via NC titrate O2, pulm toilet patient likely has DAYANA. recommend sleep study as OP CXR 11/28 mild vascular congestion and small bilateral pleural effusions, slightly improved when compared to October 31, 2019. No pneumothorax. Cardiomegaly. Calcified aorta. ABG prn rapid COVID NGT, BiPAP prn and HS-continued to refuse developed A flutter/ fib 12/03 seen by cardio already spontaneously converter to SR on a/c with Eliquis, rate controlled with BB ECHO with pEF 55-60% rate control with BB, HR stable on chronic a/c , was on hold for PEG, Eliquis afterwards resumed BP management with CCB and BB, optimize as needed continue statin ethics eval if pt can refuse BiPAP ( patient with dementia, confusion), daughter wants BiPAP and unclear how he refused if was on restraints? in our opinion BiPAP should be on standing order and available in the facility when patient will be transferred need formal polysomnogram to be done as OP bioethics eval appreciated, done 11/25 . per bioethics: pt with diminished capacity and does not understand the consequences of refusing bi-pap, yet it seems inhumane to force him to endure it recommended that he should be discharged to the SNF on nasal canula with instructions not to be sent back to the acute care hospital for refusal to accept bi-pap. bioethics offered to have a family conference to explain the reasoning if the family is willing to speak with us. SHERRIE spoke with daughter and ( through RN teacher ballet) re further GOC and code status 11/29 daughter and decided on DNR/DNI status , which was relayed to me by SHERRIE Dr Pabon spoke with Dr Chang, per attending patient remains full code dc plan to SNF ; SHERRIE discussed with family ( not want [facility]) , ongoing search for the facility completed Rx for PNA on prior admission Venous Duplex BLE 10/25 -> NGT aspir precautions, new BSSE pending TF via GT for now protein supplements HD as per nephro recs monitor volumes, renal paramerts, lytes s/p placement of permanent HD catheter R chest 11/07 s/p removal of temporary HD catheter by surgeon prior HgA1c -6.1 hold oral anti-glycemic monitor HH with goal to keep Hgb above 7 anemia w/up prior noted , heme on board on EPO GI prophayxlis supportive care dc plan in progress case discussed and evaluated by supervising physician Leoncio Galan MD 12/07/19 1434: Subjective Allergies: Coded Allergies: PENICILLINS (Verified Allergy, Unknown, 10/25/19) tolerated Ceftriaxone Uncoded Allergies: PENICILLIN (Allergy, Unknown, 11/23/19) Assessment/Plan Assessment/Plan Patient seen and examined with VARNISH INSPECTOR and I agree with the above formulated assessment and plan. Reema Hanna NP Dec 07, 2019 10:31 Leoncio Galan MD Dec 07, 2019 14:34
[2019-12-07 12:00] VITALS: BP 114/60
--- NOTE | 2019-12-07 15:18 | Nephrology Progress Note ---
Assessment/Plan Problem List: (1) Respiratory distress (2) Diabetes mellitus (3) Hypertension (4) Renal failure (ARF), acute on chronic Assessment Patient's current problem is dyspnea Most likely volume overload versus pneumonitis Other conditions: Renal failure (ARF), acute on chronic h/o Metabolic acidosis h/oElectrolyte imbalance Hyponatremia and hyperkalemia h/oAnemia h/o CHF (congestive heart failure) Plan December 06: Due for dialysis today. CBC and medication list reviewed. Continue per consultants. Hemoglobin drifting down. Will check CBC and chemistry panel tomorrow December 05: Labs reviewed. Serum creatinine up to 4.2. Calculated GFR 13. Last dialysis December 02. Will order dialysis tomorrow. December 04: Status quo. Labs reviewed. Continue per current management. December 03: Patient was dialyzed yesterday. Labs reviewed. Continue per current management. December 02: Due for dialysis today. Blood pressure medications on hold. Albumin 25% for BP support during dialysis. Continue to monitor renal parameters. December 01: Labs reviewed. Medication reviewed. Creatinine higher. Hemodialysis for tomorrow. Continue rest. November 30: Patient was last dialyzed November 28. Not in any distress now. Appears to be more verbal today. Labs reviewed. Creatinine 3.8. Hemoglobin lower at 7.9. 1 dose of IV iron ordered. Subcu Epogen ordered. November 29: Dialyzed yesterday. Status quo. Will check chemistry panel tomorrow. Dialysis as needed. Continue per PMD and consultants. November 28: Due for dialysis and ultrafiltration today. Labs and medications reviewed. Blood pressure is stable. November 27: BNP rising. Not much urine output. Will dialyze and ultrafiltrate tomorrow. Labs reviewed. Continue to adjust blood pressure medications. Continue per consultants. November 26: Last dialysis November 24. Status quo. Labs reviewed. Medication list reviewed. Continue to monitor renal parameters. Dialysis as needed. November 25: Patient was dialyzed yesterday. Today is due for insertion of a GT tube. Patient pulled out his previous GT tube. Labs reviewed. Electrolytes abnormalities adjusted. Continue to monitor renal parameters. Patient is off BiPAP and on nasal cannula now. I believe that upon discharge the patient requires 2-3 times a week dialysis and ultrafiltration however upon discharge the patient needs to be followed by a business planning analyst in the facility that he goes to to assess on a regular basis the need and frequency for dialysis. November 24 : Late note entry due to system problem at the [facility] today. Patient due for dialysis and ultrafiltration today. Labs reviewed. Chest x-ray results not available on EMR. Last dialysis November 21. Continue pulmonary toilet. Patient remains on BiPAP. Will check labs tomorrow. Subjective ROS Limited/Unobtainable: No Constitutional: Reports: malaise, weakness Objective Objective Last 24 Hour Vital Signs Date Time Temp Pulse Resp B/P (MAP) Pulse Ox O2 Delivery O2 Flow Rate FiO2 12/07/19 12:00 59 12/07/19 12:00 97.7 58 20 114/60 (78) 100 12/07/19 09:05 63 136/43 12/07/19 09:05 63 136/43 12/07/19 09:00 Nasal Cannula 2.0 12/07/19 08:00 97.5 61 20 136/43 (74) 99 12/07/19 08:00 63 12/07/19 07:45 98 Nasal Cannula 2.0 28 12/07/19 04:00 60 12/07/19 04:00 98.6 66 22 95/49 (64) 98 12/07/19 00:00 98.9 61 22 120/47 (71) 98 12/07/19 00:00 62 12/06/19 21:33 97 Nasal Cannula 2.0 28 12/06/19 21:00 Nasal Cannula 2.0 12/06/19 21:00 64 125/48 12/06/19 21:00 64 125/48 12/06/19 20:00 97.7 64 20 125/48 (73) 100 12/06/19 20:00 61 12/06/19 16:00 64 12/06/19 16:00 96.6 71 20 130/51 (77) 96 Intake and Output 12/06/19 12/07/19 19:00 07:00 Intake Total 480 ml Balance 480 ml Tube Feeding 480 ml # Voids 2 Current Medications Medications (Trade) Dose Ordered Sig/Cammy Route PRN Reason Start Time Stop Time Status Last Admin Dose Admin Allopurinol (allopurinoL) 300 mg DAILY ORAL 11/26/19 10:30 12/24/19 10:29 12/07/19 09:06 Amiodarone HCl (Cordarone) 200 mg EVERY 12 HOURS ORAL 12/04/19 21:00 03/03/20 20:59 12/07/19 09:06 Amlodipine Besylate (Norvasc) 5 mg Q12HR GT 11/28/19 21:00 12/24/19 10:29 12/07/19 09:05 Apixaban (Eliquis) 2.5 mg BID ORAL 11/26/19 10:30 02/22/20 10:29 12/07/19 09:05 Atorvastatin Calcium (Lipitor) 10 mg BEDTIME ORAL 11/26/19 21:00 02/22/20 20:59 12/06/19 21:38 Chlorhexidine Gluconate (Yi-Hex 2%) 1 applic DAILY@1999 TOPIC 11/26/19 20:00 02/24/20 19:59 12/06/19 21:36 Dextrose (Dextrose 50%) 25 ml Q30M PRN IV Hypoglycemia 12/03/19 10:30 03/02/20 10:29 Dextrose (Dextrose 50%) 50 ml Q30M PRN IV Hypoglycemia 12/03/19 10:30 03/02/20 10:29 Diphenhydramine HCl (Benadryl) 25 mg Q8H PRN NG Itching 12/03/19 09:30 01/02/20 09:29 12/04/19 12:28 Docusate Sodium (Colace) 100 mg THREE TIMES A DAY NG 11/28/19 13:00 12/28/19 12:59 12/07/19 13:33 Epoetin William (Epoetin William(ESRD on dialysis)) 10,000 unit SUBQ 12/01/19 21:00 02/29/20 20:59 12/06/19 21:36 Insulin Aspart (NovoLOG) Q6HR SUBQ 12/03/19 12:00 03/02/20 11:59 12/07/19 12:02 Lansoprazole (Prevacid) 30 mg DAILY GT 11/28/19 10:45 12/28/19 10:44 12/07/19 09:05 Metoprolol Tartrate (Lopressor) 12.5 mg Q12HR GT 11/29/19 09:00 02/27/20 08:59 12/07/19 09:05 Sennosides (Senokot) 8.6 mg DAILY PRN ORAL Constipation 11/26/19 10:30 12/26/19 10:29 Laboratory Tests 12/07/19 00:28: POC Whole Blood Glucose [Pending] 12/07/19 05:29: POC Whole Blood Glucose 146H 12/07/19 09:40: White Blood Count 9.2, Red Blood Count 3.07L, Hemoglobin 8.8L, Hematocrit 27.6L , Mean Corpuscular Volume 90, Mean Corpuscular Hemoglobin 28.6, Mean Corpuscular Hemoglobin Concent 31.8L, Red Cell Distribution Width 15.1H, Platelet Count 273, Mean Platelet Volume 6.5, Neutrophils (%) (Auto) 70.9, Lymphocytes (%) (Auto) 16.2L, Monocytes (%) (Auto) 8.0, Eosinophils (%) (Auto) 2.0, Basophils (%) (Auto) 2.9H 12/07/19 11:37: POC Whole Blood Glucose 180H Height (Feet): 5 Height (Inches): 5.00 Weight (Pounds): 169 General Appearance: no apparent distress Cardiovascular: normal rate Respiratory/Chest: decreased breath sounds Abdomen: soft, distended Objective No change Naveed Vanegas MD Dec 07, 2019 15:18
[2019-12-07 16:00] VITALS: BP 126/45
[2019-12-07 20:00] VITALS: BP 127/44
[2019-12-07] MEDS: Dyna-Hex 2% Top Sol 2oz TOPIC SCH (20:59)
--- NOTE | 2019-12-07 21:13 | General Progress Note ---
Assessment/Plan Status Narrative Patient is awake alert oriented few days ago he made a decision to leave the decision about DNR. and he had his made the decision to have the patient DNR And the patient declined to have he can return back to [facility] Prior to his discharge arrangements for dialysis is to be done in the dialysis unit DTC with visit facility which is in [place] AYUSH CHANG MD Subjective Constitutional: Reports: no symptoms HEENT: Reports: no symptoms Cardiovascular: Reports: no symptoms Respiratory: Reports: other - Mild shortness of breath Gastrointestinal/Abdominal: Reports: no symptoms Genitourinary: Reports: no symptoms Neurologic/Psychiatric: Reports: no symptoms Allergies: Coded Allergies: PENICILLINS (Verified Allergy, Unknown, 10/25/19) tolerated Ceftriaxone Uncoded Allergies: PENICILLIN (Allergy, Unknown, 11/23/19) Objective Last 24 Hour Vital Signs Date Time Temp Pulse Resp B/P (MAP) Pulse Ox O2 Delivery O2 Flow Rate FiO2 12/07/19 20:20 98 Nasal Cannula 2.0 28 12/07/19 16:00 57 12/07/19 16:00 98.0 59 20 126/45 (72) 98 12/07/19 12:00 59 12/07/19 12:00 97.7 58 20 114/60 (78) 100 12/07/19 09:05 63 136/43 12/07/19 09:05 63 136/43 12/07/19 09:00 Nasal Cannula 2.0 12/07/19 08:00 97.5 61 20 136/43 (74) 99 12/07/19 08:00 63 12/07/19 07:45 98 Nasal Cannula 2.0 28 12/07/19 04:00 60 12/07/19 04:00 98.6 66 22 95/49 (64) 98 12/07/19 00:00 98.9 61 22 120/47 (71) 98 12/07/19 00:00 62 12/06/19 21:33 97 Nasal Cannula 2.0 28 Intake and Output 12/06/19 12/07/19 19:00 07:00 Intake Total 480 ml Balance 480 ml Tube Feeding 480 ml # Voids 2 Laboratory Tests 12/07/19 00:28: POC Whole Blood Glucose [Pending] 12/07/19 05:29: POC Whole Blood Glucose 146H 12/07/19 09:40: White Blood Count 9.2, Red Blood Count 3.07L, Hemoglobin 8.8L, Hematocrit 27.6L , Mean Corpuscular Volume 90, Mean Corpuscular Hemoglobin 28.6, Mean Corpuscular Hemoglobin Concent 31.8L, Red Cell Distribution Width 15.1H, Platelet Count 273, Mean Platelet Volume 6.5, Neutrophils (%) (Auto) 70.9, Lymphocytes (%) (Auto) 16.2L, Monocytes (%) (Auto) 8.0, Eosinophils (%) (Auto) 2.0, Basophils (%) (Auto) 2.9H 12/07/19 11:37: POC Whole Blood Glucose 180H 12/07/19 17:15: POC Whole Blood Glucose 159H Height (Feet): 5 Height (Inches): 5.00 Weight (Pounds): 169 General Appearance: alert EENT: normal ENT inspection Neck: normal alignment, supple Cardiovascular: normal rate, regular rhythm, no gallop/murmur, no JVD Respiratory/Chest: lungs clear, normal breath sounds, no respiratory distress Abdomen: normal bowel sounds, non tender, soft, no organomegaly, no mass Extremities: non-tender, other - No cyanosis clubbing or edema Neurologic: alert, responsive Ayush Chang MD Dec 07, 2019 21:13
[2019-12-08] VITALS: BP 125/49
[2019-12-08 04:00] VITALS: BP 119/44
[2019-12-08] MEDS: NovoLOG Insulin Flexpen SUBQ SCH ×4 (06:00→17:42)
--- NOTE | 2019-12-08 07:03 | Hematology/Onc Progress Note ---
Assessment/Plan Assessment/Plan ASSESSMENT AND RECOMMENDATIONS: # Anemia of chronic disease due to underlying chronic medical issues, multifactorial --> Anemia w/u has been reviewed. --> no evidence of hemolysis is noted, peripheral smear has been reviewed --> hgb goal is >7, transfuse as needed --> currently remains stable, occult blood negative --> hgb 8.4->8.6->8.3->8->8.2->9.2-->9.2->8.9-->8.1-->8.7>9.4-->8.7-->8->7.8->7.5-->7.4- ->7.5-->8.1-->8-->8.1-->9.5->7.9-->7.6-->7.5-->9.9-->8.8 --> 1 unit prbc 12/03 --> some blood loss due to hematuria after inflated reyes pulled 8/6 am --> EPOGEN Started # Thrombocytopenia is likely due to infection --> plt trend 180-->149-->274 --> on abx as needed --> hep and hiv neg #. Leukocytosis with underlying infectionv stress reaction HISTORY --> per id and better --> for infection, ABX ctx/vanc-->off --> wbc 10-->5.9 # Acute kidney injury r/o potential reversible component --> reviewed meds, those that are renally cleared removed --> as per renal recs, appreciated --> cr 3.5-->4.2-->3.4->3.3 --> Hd started and dw renal # Hypertension, essential --> sbp goal is <140, consider anti-htn as needed --> currently started on hyralazine 25mg po q6h prn sbp >140 # CHF - hx of CHf --> diuresis with lasix as needed --> cardiology recs appreciated prior adm #. Bilateral lower extremity amputee, metatarsal several years ago --> stable #. Atrial fibrillation --> as per cards recs #. Dysphagia s/p peg --> peg pulled out and now with gtube 11/25 #. Hyperkalemia --> kayxelate as needed #. Agitation requires restraints #. Dvt ppx scds --> xarelto=> off-->eliquis-->off-->eliquis The time the note was entered does not necessarily correspond to the time the patient was seen. GREATLY APPRECIATE CONSULTATION. Subjective Constitutional: Denies: no symptoms, chills, fever, malaise, weakness, other HEENT: Denies: no symptoms, eye pain, blurred vision, tearing, double vision, ear pain, ear discharge, nose pain, nose congestion, throat pain, throat swelling, mouth pain, mouth swelling, other Cardiovascular: Denies: no symptoms, chest pain, edema, irregular heart rate, lightheadedness, palpitations, syncope, other Respiratory: Denies: no symptoms, cough, shortness of breath, SOB with excertion, SOB at rest, sputum, wheezing, other Genitourinary: Denies: no symptoms, burning, discharge, frequency, flank pain, hematuria, incontinence, pain, urgency, other Neurologic/Psychiatric: Denies: no symptoms, anxiety, depressed, emotional problems, headache, numbness, paresthesia, pre-existing deficit, seizure, tingling, tremors, weakness, other Endocrine: Denies: no symptoms, excessive sweating, flushing, intolerance to cold, intolerance to heat, increased hunger, increased thirst, increased urine, unexplained weight gain, unexplained weight loss, other Allergies: Coded Allergies: PENICILLINS (Verified Allergy, Unknown, 10/25/19) tolerated Ceftriaxone Uncoded Allergies: PENICILLIN (Allergy, Unknown, 11/23/19) Subjective 11/23 came back from [facility] due to lack of bipap capability, hgb 7.5 11/24 labs reviewed, remains sob, with a hgb 8.1, no bleeding, jag salas, hold off prbc 11/25 labs are noted, for egd and peg in the am, jag salas, on nc 11/27 getting 3l nc overnight, has been refusing bipap unfortunately, hgb stable 11/28 labs noted, with gtube feeds, again this am refusing bipap 11/29 is on 2l nc, with gtube feeds, hgb 9.5, no bleeding 11/30 labs are noted, no bleeding, on gtube feeds, on 2l nc 12/01 meds noted, no bleeding, hgb 7.9 yesterday, on nc 12/02 is on nepro and on 2l, hgb 7.6, c/o itching, have started benadryl q 8h prn 12/04 labs reviewed, coverning for Dr. Chang, no bleeding, meds noted, wants restraints off 12/05 labs are noted, no bleeding, no night sweats, with gtube feeds ongoing 12/06 labs reviewed, no bleeding, meds noted, no major changes, peg+ 12/07 on wrist restraints, gtube was pulled out overnight, no bleedng Objective Objective Current Medications Medications (Trade) Dose Ordered Sig/Cammy Route PRN Reason Start Time Stop Time Status Last Admin Dose Admin Allopurinol (allopurinoL) 300 mg DAILY ORAL 11/26/19 10:30 12/24/19 10:29 12/07/19 09:06 Amiodarone HCl (Cordarone) 200 mg EVERY 12 HOURS ORAL 12/04/19 21:00 03/03/20 20:59 12/07/19 20:59 Amlodipine Besylate (Norvasc) 5 mg Q12HR GT 11/28/19 21:00 12/24/19 10:29 12/07/19 21:13 Apixaban (Eliquis) 2.5 mg BID ORAL 11/26/19 10:30 02/22/20 10:29 12/07/19 17:17 Atorvastatin Calcium (Lipitor) 10 mg BEDTIME ORAL 11/26/19 21:00 02/22/20 20:59 12/07/19 20:58 Chlorhexidine Gluconate (Yi-Hex 2%) 1 applic DAILY@1999 TOPIC 11/26/19 20:00 02/24/20 19:59 12/07/19 20:59 Dextrose (Dextrose 50%) 25 ml Q30M PRN IV Hypoglycemia 12/03/19 10:30 03/02/20 10:29 Dextrose (Dextrose 50%) 50 ml Q30M PRN IV Hypoglycemia 12/03/19 10:30 03/02/20 10:29 Diphenhydramine HCl (Benadryl) 25 mg Q8H PRN NG Itching 12/03/19 09:30 01/02/20 09:29 12/04/19 12:28 Docusate Sodium (Colace) 100 mg THREE TIMES A DAY NG 11/28/19 13:00 12/28/19 12:59 12/07/19 17:17 Epoetin William (Epoetin William(ESRD on dialysis)) 10,000 unit SUBQ 12/01/19 21:00 02/29/20 20:59 12/06/19 21:36 Insulin Aspart (NovoLOG) Q6HR SUBQ 12/03/19 12:00 03/02/20 11:59 12/08/19 00:00 Lansoprazole (Prevacid) 30 mg DAILY GT 11/28/19 10:45 12/28/19 10:44 12/07/19 09:05 Metoprolol Tartrate (Lopressor) 12.5 mg Q12HR GT 11/29/19 09:00 02/27/20 08:59 12/07/19 09:05 Sennosides (Senokot) 8.6 mg DAILY PRN ORAL Constipation 11/26/19 10:30 12/26/19 10:29 Last 24 Hour Vital Signs Date Time Temp Pulse Resp B/P (MAP) Pulse Ox O2 Delivery O2 Flow Rate FiO2 12/08/19 04:00 60 12/08/19 04:00 97.5 60 20 119/44 (69) 100 12/08/19 00:00 63 12/08/19 00:00 97.5 62 20 125/49 (74) 100 12/07/19 21:13 127/44 12/07/19 21:00 Nasal Cannula 2.0 12/07/19 21:00 127/44 12/07/19 20:20 98 Nasal Cannula 2.0 28 12/07/19 20:00 97.7 64 20 127/44 (71) 100 12/07/19 20:00 63 12/07/19 16:00 57 12/07/19 16:00 98.0 59 20 126/45 (72) 98 12/07/19 12:00 59 12/07/19 12:00 97.7 58 20 114/60 (78) 100 12/07/19 09:05 63 136/43 12/07/19 09:05 63 136/43 12/07/19 09:00 Nasal Cannula 2.0 12/07/19 08:00 97.5 61 20 136/43 (74) 99 12/07/19 08:00 63 12/07/19 07:45 98 Nasal Cannula 2.0 28 12/07/19 04:00 60 12/07/19 04:00 98.6 66 22 95/49 (64) 98 12/07/19 00:00 98.9 61 22 120/47 (71) 98 12/07/19 00:00 62 12/06/19 21:33 97 Nasal Cannula 2.0 28 12/06/19 21:00 Nasal Cannula 2.0 12/06/19 21:00 64 125/48 12/06/19 21:00 64 125/48 12/06/19 20:00 97.7 64 20 125/48 (73) 100 12/06/19 20:00 61 12/06/19 16:00 64 12/06/19 16:00 96.6 71 20 130/51 (77) 96 12/06/19 12:00 97.5 80 22 137/49 (78) 98 12/06/19 12:00 60 12/06/19 09:25 64 146/55 12/06/19 09:25 64 146/55 12/06/19 09:00 Nasal Cannula 2.0 12/06/19 08:00 96.8 66 21 155/53 (87) 95 12/06/19 08:00 65 Intake and Output 12/07/19 12/08/19 19:00 07:00 Intake Total 40 ml Output Total 3000 ml 150 ml Balance -3000 ml -110 ml Tube Feeding 40 ml Output Urine Total 150 ml Hemodialysis UF 3000 ml Labs Test 12/05/19 08:08 12/05/19 11:28 12/05/19 16:20 12/06/19 00:25 Troponin I 0.000 ng/mL (0.000-0.056) POC Whole Blood Glucose 211 MG/DL (74-106) 226 MG/DL (74-106) Test 12/06/19 06:19 12/06/19 09:50 12/06/19 12:02 12/07/19 00:28 White Blood Count 10.3 K/UL (4.8-10.8) Red Blood Count 3.50 M/UL (4.70-6.10) Hemoglobin 9.9 G/DL (14.2-18.0) Hematocrit 31.9 % (42.0-52.0) Mean Corpuscular Volume 91 FL (80-99) Mean Corpuscular Hemoglobin 28.4 PG (27.0-31.0) Mean Corpuscular Hemoglobin Concent 31.1 G/DL (32.0-36.0) Red Cell Distribution Width 15.1 % (11.6-14.8) Platelet Count 298 K/UL (150-450) Mean Platelet Volume 7.4 FL (6.5-10.1) Neutrophils (%) (Auto) 76.7 % (45.0-75.0) Lymphocytes (%) (Auto) 14.3 % (20.0-45.0) Monocytes (%) (Auto) 7.3 % (1.0-10.0) Eosinophils (%) (Auto) 0.9 % (0.0-3.0) Basophils (%) (Auto) 0.9 % (0.0-2.0) Sodium Level 137 MMOL/L (136-145) Potassium Level 4.4 MMOL/L (3.5-5.1) Chloride Level 97 MMOL/L (98-107) Carbon Dioxide Level 33 MMOL/L (21-32) Anion Gap 7 mmol/L (5-15) Blood Urea Nitrogen 87 mg/dL (7-18) Creatinine 4.2 MG/DL (0.55-1.30) Estimat Glomerular Filtration Rate 13.7 mL/min (>60) Glucose Level 206 MG/DL (74-106) Calcium Level 8.9 MG/DL (8.5-10.1) Phosphorus Level 3.9 MG/DL (2.5-4.9) Magnesium Level 3.1 MG/DL (1.8-2.4) Total Bilirubin 0.5 MG/DL (0.2-1.0) Aspartate Amino Transf (AST/SGOT) 17 U/L (15-37) Alanine Aminotransferase (ALT/SGPT) 15 U/L (12-78) Alkaline Phosphatase 208 U/L (46-116) Total Protein 7.6 G/DL (6.4-8.2) Albumin 2.9 G/DL (3.4-5.0) Globulin 4.7 g/dL Albumin/Globulin Ratio 0.6 (1.0-2.7) Test 12/07/19 05:29 12/07/19 09:40 12/07/19 11:37 12/07/19 17:15 POC Whole Blood Glucose 146 MG/DL (74-106) 180 MG/DL (74-106) 159 MG/DL (74-106) White Blood Count 9.2 K/UL (4.8-10.8) Red Blood Count 3.07 M/UL (4.70-6.10) Hemoglobin 8.8 G/DL (14.2-18.0) Hematocrit 27.6 % (42.0-52.0) Mean Corpuscular Volume 90 FL (80-99) Mean Corpuscular Hemoglobin 28.6 PG (27.0-31.0) Mean Corpuscular Hemoglobin Concent 31.8 G/DL (32.0-36.0) Red Cell Distribution Width 15.1 % (11.6-14.8) Platelet Count 273 K/UL (150-450) Mean Platelet Volume 6.5 FL (6.5-10.1) Neutrophils (%) (Auto) 70.9 % (45.0-75.0) Lymphocytes (%) (Auto) 16.2 % (20.0-45.0) Monocytes (%) (Auto) 8.0 % (1.0-10.0) Eosinophils (%) (Auto) 2.0 % (0.0-3.0) Basophils (%) (Auto) 2.9 % (0.0-2.0) Test 12/08/19 05:21 POC Whole Blood Glucose 119 MG/DL (74-106) Height (Feet): 5 Height (Inches): 5.00 Weight (Pounds): 169 Objective GENERAL: Not in acute distress. HEENT: ncat PULMONARY: Decreased breath sounds. ++ bipap v nc+ CHEST: ++permacath right chest CARDIOVASCULAR: Regular rate. No S3 or S4. ABDOMEN: Soft, nontender, nondistended.++reyes in site of old gtube EXTREMITIES: 1+ edema. No cyanosis, swelling, or edema. 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 Melvin Rizzo MD Dec 08, 2019 07:03
[2019-12-08 07:21] LABS: BASOPHILS % (AUTO) 0.7 % (0.0-2.0); EOSINOPHILS % (AUTO) 1.3 % (0.0-3.0); HEMATOCRIT 28.6 % (42.0-52.0); HEMOGLOBIN 8.7 G/DL (14.2-18.0); LYMPHOCYTES % (AUTO) 15.5 % (20.0-45.0); MEAN CORPUSCULAR VOLUME 93 FL (80-99); MONOCYTES % (AUTO) 6.5 % (1.0-10.0); NEUTROPHILS % (AUTO) 75.9 % (45.0-75.0); PLATELET COUNT 314 K/UL (150-450); RED CELL DISTRIBUTION WIDTH 15.6 % (11.6-14.8); WHITE BLOOD COUNT 9.7 K/UL (4.8-10.8)
[2019-12-08 07:55] LABS: ALBUMIN 2.6 G/DL (3.4-5.0); ALBUMIN/GLOBULIN RATIO 0.6 (1.0-2.7); BILIRUBIN,TOTAL 0.4 MG/DL (0.2-1.0); CALCIUM 8.6 MG/DL (8.5-10.1); PHOSPHORUS 3.5 MG/DL (2.5-4.9); POTASSIUM 4.5 MMOL/L (3.5-5.1)
[2019-12-08 08:00] VITALS: BP 128/40
[2019-12-08] MEDS: Docusate 100mg/10ml Liq NG SCH ×3 (09:00→17:42)
[2019-12-08] MEDS: Eliquis 2.5mg tablet ORAL SCH ×2 (09:00→17:42)
[2019-12-08] MEDS: Metoprolol Tartrate 12.5mg TAB GT SCH ×2 (09:00→20:29)
[2019-12-08] MEDS: Amiodarone 200mg tab ORAL SCH ×2 (09:00→20:29)
--- NOTE | 2019-12-08 09:12 | General Progress Note ---
Assessment/Plan Problem List: (1) Hypertension ICD Codes: I10 - Essential (primary) hypertension SNOMED: 29123893 (2) Diabetes mellitus ICD Codes: E11.9 - Type 2 diabetes mellitus without complications SNOMED: 87331378 (3) Cholelithiasis ICD Codes: K80.20 - Calculus of gallbladder without cholecystitis without obstruction SNOMED: 145224238 Assessment/Plan: dysphagia s/p GT placement patient pulled the GT again 20 Fr GT was placed at the bedside check KUB fu H&H prn blood transfusion Subjective ROS Limited/Unobtainable: No Allergies: Coded Allergies: PENICILLINS (Verified Allergy, Unknown, 10/25/19) tolerated Ceftriaxone Uncoded Allergies: PENICILLIN (Allergy, Unknown, 11/23/19) Objective Last 24 Hour Vital Signs Date Time Temp Pulse Resp B/P (MAP) Pulse Ox O2 Delivery O2 Flow Rate FiO2 12/08/19 04:00 60 12/08/19 04:00 97.5 60 20 119/44 (69) 100 12/08/19 00:00 63 12/08/19 00:00 97.5 62 20 125/49 (74) 100 12/07/19 21:13 127/44 12/07/19 21:00 Nasal Cannula 2.0 12/07/19 21:00 127/44 12/07/19 20:20 98 Nasal Cannula 2.0 28 12/07/19 20:00 97.7 64 20 127/44 (71) 100 12/07/19 20:00 63 12/07/19 16:00 57 12/07/19 16:00 98.0 59 20 126/45 (72) 98 12/07/19 12:00 59 12/07/19 12:00 97.7 58 20 114/60 (78) 100 Intake and Output 12/07/19 12/08/19 19:00 07:00 Intake Total 40 ml Output Total 3000 ml 150 ml Balance -3000 ml -110 ml Tube Feeding 40 ml Output Urine Total 150 ml Hemodialysis UF 3000 ml Laboratory Tests 12/07/19 09:40: White Blood Count 9.2, Red Blood Count 3.07L, Hemoglobin 8.8L, Hematocrit 27.6L, Mean Corpuscular Volume 90, Mean Corpuscular Hemoglobin 28.6, Mean Corpuscular Hemoglobin Concent 31.8L, Red Cell Distribution Width 15.1H, Platelet Count 273, Mean Platelet Volume 6.5, Neutrophils (%) (Auto) 70.9, Lymphocytes (%) (Auto) 16.2L, Monocytes (%) (Auto) 8.0, Eosinophils (%) (Auto) 2.0, Basophils (%) (Auto) 2.9H 12/07/19 11:37: POC Whole Blood Glucose 180H 12/07/19 17:15: POC Whole Blood Glucose 159H 12/08/19 05:21: POC Whole Blood Glucose 119H 12/08/19 05:37: White Blood Count 9.7, Red Blood Count 3.10L, Hemoglobin 8.7L, Hematocrit 28.6L, Mean Corpuscular Volume 93, Mean Corpuscular Hemoglobin 28.2, Mean Corpuscular Hemoglobin Concent 30.5L, Red Cell Distribution Width 15.6H, Platelet Count 314, Mean Platelet Volume 6.9, Neutrophils (%) (Auto) 75.9H, Lymphocytes (%) (Auto) 15.5L, Monocytes (%) (Auto) 6.5, Eosinophils (%) (Auto) 1.3, Basophils (%) ( Auto) 0.7, Sodium Level 134L, Potassium Level 4.5, Chloride Level 99, Carbon Dioxide Level 25, Anion Gap 10, Blood Urea Nitrogen 48H, Creatinine 3.0H, Estimat Glomerular Filtration Rate 20.2, Glucose Level 105, Calcium Level 8.6, Phosphorus Level 3.5, Magnesium Level [Pending], Total Bilirubin 0.4, Aspartate Amino Transf (AST/SGOT) 19, Alanine Aminotransferase (ALT/SGPT) 12, Alkaline Phosphatase 187H, C-Reactive Protein, Quantitative 5.1H, Pro-B-Type Natriuretic Peptide 66079Q, Total Protein 7.0, Albumin 2.6L, Globulin 4.4, Albumin/Globulin Ratio 0.6L Height (Feet): 5 Height (Inches): 5.00 Weight (Pounds): 169 General Appearance: alert EENT: normal ENT inspection Neck: supple Cardiovascular: normal rate Respiratory/Chest: decreased breath sounds Abdomen: normal bowel sounds, non tender, soft Extremities: non-tender Lawrence Humphreys MD Dec 08, 2019 09:12
--- NOTE | 2019-12-08 11:20 | Nephrology Progress Note ---
Assessment/Plan Problem List: (1) Respiratory distress (2) Diabetes mellitus (3) Hypertension (4) Renal failure (ARF), acute on chronic Assessment Patient's current problem is dyspnea Most likely volume overload versus pneumonitis Other conditions: Renal failure (ARF), acute on chronic h/o Metabolic acidosis h/oElectrolyte imbalance Hyponatremia and hyperkalemia h/oAnemia h/o CHF (congestive heart failure) Plan December 07: Dialyzed yesterday. Labs reviewed. Stable from renal standpoint of view. December 06: Due for dialysis today. CBC and medication list reviewed. Continue per consultants. Hemoglobin drifting down. Will check CBC and chemistry panel tomorrow December 05: Labs reviewed. Serum creatinine up to 4.2. Calculated GFR 13. Last dialysis December 02. Will order dialysis tomorrow. December 04: Status quo. Labs reviewed. Continue per current management. December 03: Patient was dialyzed yesterday. Labs reviewed. Continue per current management. December 02: Due for dialysis today. Blood pressure medications on hold. Albumin 25% for BP support during dialysis. Continue to monitor renal parameters. December 01: Labs reviewed. Medication reviewed. Creatinine higher. Hemodialysis for tomorrow. Continue rest. November 30: Patient was last dialyzed November 28. Not in any distress now. Appears to be more verbal today. Labs reviewed. Creatinine 3.8. Hemoglobin lower at 7.9. 1 dose of IV iron ordered. Subcu Epogen ordered. November 29: Dialyzed yesterday. Status quo. Will check chemistry panel tomorrow. Dialysis as needed. Continue per PMD and consultants. November 28: Due for dialysis and ultrafiltration today. Labs and medications reviewed. Blood pressure is stable. November 27: BNP rising. Not much urine output. Will dialyze and ultrafiltrate tomorrow. Labs reviewed. Continue to adjust blood pressure medications. Continue per consultants. November 26: Last dialysis November 24. Status quo. Labs reviewed. Medication list reviewed. Continue to monitor renal parameters. Dialysis as needed. November 25: Patient was dialyzed yesterday. Today is due for insertion of a GT tube. Patient pulled out his previous GT tube. Labs reviewed. Electrolytes abnormalities adjusted. Continue to monitor renal parameters. Patient is off BiPAP and on nasal cannula now. I believe that upon discharge the patient requires 2-3 times a week dialysis and ultrafiltration however upon discharge the patient needs to be followed by a slug press operator in the facility that he goes to to assess on a regular basis the need and frequency for dialysis. November 24 : Late note entry due to system problem at the [facility] today. Patient due for dialysis and ultrafiltration today. Labs reviewed. Chest x-ray results not available on EMR. Last dialysis November 21. Continue pulmonary toilet. Patient remains on BiPAP. Will check labs tomorrow. Subjective ROS Limited/Unobtainable: No Constitutional: Reports: malaise, weakness Objective Objective Last 24 Hour Vital Signs Date Time Temp Pulse Resp B/P (MAP) Pulse Ox O2 Delivery O2 Flow Rate FiO2 12/08/19 09:00 Nasal Cannula 2.0 12/08/19 08:00 61 12/08/19 08:00 97.9 60 20 128/40 (69) 100 12/08/19 07:00 100 Nasal Cannula 2.0 28 12/08/19 04:00 60 12/08/19 04:00 97.5 60 20 119/44 (69) 100 12/08/19 00:00 63 12/08/19 00:00 97.5 62 20 125/49 (74) 100 12/07/19 21:13 127/44 12/07/19 21:00 Nasal Cannula 2.0 12/07/19 21:00 127/44 12/07/19 20:20 98 Nasal Cannula 2.0 28 12/07/19 20:00 97.7 64 20 127/44 (71) 100 12/07/19 20:00 63 12/07/19 16:00 57 12/07/19 16:00 98.0 59 20 126/45 (72) 98 12/07/19 12:00 59 12/07/19 12:00 97.7 58 20 114/60 (78) 100 Intake and Output 12/07/19 12/08/19 19:00 07:00 Intake Total 40 ml Output Total 3000 ml 150 ml Balance -3000 ml -110 ml Tube Feeding 40 ml Output Urine Total 150 ml Hemodialysis UF 3000 ml Laboratory Tests 12/07/19 11:37: POC Whole Blood Glucose 180H 12/07/19 17:15: POC Whole Blood Glucose 159H 12/08/19 05:21: POC Whole Blood Glucose 119H 12/08/19 05:37: White Blood Count 9.7, Red Blood Count 3.10L, Hemoglobin 8.7L, Hematocrit 28.6L, Mean Corpuscular Volume 93, Mean Corpuscular Hemoglobin 28.2, Mean Corpuscular Hemoglobin Concent 30.5L, Red Cell Distribution Width 15.6H, Platelet Count 314, Mean Platelet Volume 6.9, Neutrophils (%) (Auto) 75.9H, Lymphocytes (%) (Auto) 15.5L, Monocytes (%) (Auto) 6.5, Eosinophils (%) (Auto) 1.3, Basophils (%) (Auto) 0.7, Sodium Level 134L, Potassium Level 4.5, Chloride Level 99, Carbon Dioxide Level 25, Anion Gap 10, Blood Urea Nitrogen 48H, Creatinine 3.0H, Estim at Glomerular Filtration Rate 20.2, Glucose Level 105, Calcium Level 8.6, Phosphorus Level 3.5, Magnesium Level 2.5H, Total Bilirubin 0.4, Aspartate Amino Transf (AST/SGOT) 19, Alanine Aminotransferase (ALT/SGPT) 12, Alkaline Phosphatase 187H, C-Reactive Protein, Quantitative 5.1H, Pro-B-Type Natriuretic Peptide [id number], Total Protein 7.0, Albumin 2.6L, Globulin 4.4, Albumin/Globulin Ratio 0.6L Height (Feet): 5 Height (Inches): 5.00 Weight (Pounds): 169 General Appearance: no apparent distress Respiratory/Chest: decreased breath sounds Abdomen: soft Objective No change Naveed Vanegas MD Dec 08, 2019 11:19
--- NOTE | 2019-12-08 11:21 | Pulmonology Progress Note ---
Reema Hanna SUPERVISOR FELTING 12/08/19 1121: Subjective ROS Limited/Unobtainable: No Allergies: Coded Allergies: PENICILLINS (Verified Allergy, Unknown, 10/25/19) tolerated Ceftriaxone Uncoded Allergies: PENICILLIN (Allergy, Unknown, 11/23/19) All Systems: reviewed and negative except above Subjective on tele on O2 2 L via NC, pulse ox stable no signs of resp distress off BiPAP and continued to decline it bioethics eval was done 11/25 SHERRIE spoke with daughter and 11/29 SHERRIE discussed with daughter bioethics recs and further GOC and code status daughter and decided on DNR/DNI status , which was relayed to me by SHERRIE 12/02 in search of new SNF currently dc plan pending, challenging placement code status changed to DNR/DNI on 12/06 by attending due to family wishes Objective Last 24 Hour Vital Signs Date Time Temp Pulse Resp B/P (MAP) Pulse Ox O2 Delivery O2 Flow Rate FiO2 12/08/19 09:00 Nasal Cannula 2.0 12/08/19 08:00 61 12/08/19 08:00 97.9 60 20 128/40 (69) 100 12/08/19 07:00 100 Nasal Cannula 2.0 28 12/08/19 04:00 60 12/08/19 04:00 97.5 60 20 119/44 (69) 100 12/08/19 00:00 63 12/08/19 00:00 97.5 62 20 125/49 (74) 100 12/07/19 21:13 127/44 12/07/19 21:00 Nasal Cannula 2.0 12/07/19 21:00 127/44 12/07/19 20:20 98 Nasal Cannula 2.0 28 12/07/19 20:00 97.7 64 20 127/44 (71) 100 12/07/19 20:00 63 12/07/19 16:00 57 12/07/19 16:00 98.0 59 20 126/45 (72) 98 12/07/19 12:00 59 12/07/19 12:00 97.7 58 20 114/60 (78) 100 Intake and Output 12/07/19 12/08/19 19:00 07:00 Intake Total 40 ml Output Total 3000 ml 150 ml Balance -3000 ml -110 ml Tube Feeding 40 ml Output Urine Total 150 ml Hemodialysis UF 3000 ml Objective General Appearance: alert , confused, Croatian speaking Lines, tubes and drains: peripheral HEENT: normocephalic, atraumatic, anicteric, O2 via NC Neck: supple Respiratory/Chest: lungs clear, no respiratory distress Cardiovascular/Chest: normal rate, SR with 1 st degree AV block Abdomen: non tender, soft, feeding tube - G tube Extremities: BL foot TMA Neurologic: abnormal gait, alert, confused, responsive Musculoskeletal: atrophy - BLE Laboratory Tests 12/07/19 11:37: POC Whole Blood Glucose 180H 12/07/19 17:15: POC Whole Blood Glucose 159H 12/08/19 05:21: POC Whole Blood Glucose 119H 12/08/19 05:37: White Blood Count 9.7, Red Blood Count 3.10L, Hemoglobin 8.7L, Hematocrit 28.6L, Mean Corpuscular Volume 93, Mean Corpuscular Hemoglobin 28.2, Mean Corpuscular Hemoglobin Concent 30.5L, Red Cell Distribution Width 15.6H, Platelet Count 314, Mean Platelet Volume 6.9, Neutrophils (%) (Auto) 75.9H, Lymphocytes (%) (Auto) 15.5L, Monocytes (%) (Auto) 6.5, Eosinophils (%) (Auto) 1.3, Basophils (%) (Auto) 0.7, Sodium Level 134L, Potassium Level 4.5, Chloride Level 99, Carbon Dioxide Level 25, Anion Gap 10, Blood Urea Nitrogen 48H, Creatinine 3.0H, Estimat Glomerular Filtration Rate 20.2, Glucose Level 105, Calcium Level 8.6, Phosphorus Level 3.5, Magnesium Level 2.5H, Total Bilirubin 0.4, Aspartate Amino Transf (AST/SGOT) 19, Alanine Aminotransferase (ALT/SGPT) 12, Alkaline Phosphatase 187H, C-Reactive Protein, Quantitative 5.1H, Pro-B-Type Natriuretic Peptide 18355D, Total Protein 7.0, Albumin 2.6L, Globulin 4.4, Albumin/Globulin Ratio 0.6L Current Medications Medications (Trade) Dose Ordered Sig/Cammy Route PRN Reason Start Time Stop Time Status Last Admin Dose Admin Allopurinol (allopurinoL) 300 mg DAILY ORAL 11/26/19 10:30 12/24/19 10:29 12/07/19 09:06 Amiodarone HCl (Cordarone) 200 mg EVERY 12 HOURS ORAL 12/04/19 21:00 03/03/20 20:59 12/07/19 20:59 Amlodipine Besylate (Norvasc) 5 mg Q12HR GT 11/28/19 21:00 12/24/19 10:29 12/07/19 21:13 Apixaban (Eliquis) 2.5 mg BID ORAL 11/26/19 10:30 02/22/20 10:29 12/07/19 17:17 Atorvastatin Calcium (Lipitor) 10 mg BEDTIME ORAL 11/26/19 21:00 02/22/20 20:59 12/07/19 20:58 Chlorhexidine Gluconate (Yi-Hex 2%) 1 applic DAILY@1999 TOPIC 11/26/19 20:00 02/24/20 19:59 12/07/19 20:59 Dextrose (Dextrose 50%) 25 ml Q30M PRN IV Hypoglycemia 12/03/19 10:30 03/02/20 10:29 Dextrose (Dextrose 50%) 50 ml Q30M PRN IV Hypoglycemia 12/03/19 10:30 03/02/20 10:29 Diphenhydramine HCl (Benadryl) 25 mg Q8H PRN NG Itching 12/03/19 09:30 01/02/20 09:29 12/04/19 12:28 Docusate Sodium (Colace) 100 mg THREE TIMES A DAY NG 11/28/19 13:00 12/28/19 12:59 12/07/19 17:17 Epoetin William (Epoetin William(ESRD on dialysis)) 10,000 unit SUBQ 12/01/19 21:00 02/29/20 20:59 12/06/19 21:36 Insulin Aspart (NovoLOG) Q6HR SUBQ 12/03/19 12:00 03/02/20 11:59 12/08/19 00:00 Lansoprazole (Prevacid) 30 mg DAILY GT 11/28/19 10:45 12/28/19 10:44 12/07/19 09:05 Metoprolol Tartrate (Lopressor) 12.5 mg Q12HR GT 11/29/19 09:00 02/27/20 08:59 12/07/19 09:05 Sennosides (Senokot) 8.6 mg DAILY PRN ORAL Constipation 11/26/19 10:30 12/26/19 10:29 Assessment/Plan Assessment/Plan ASSESSMENT Prior acute hypoxemic hypercapnic respiratory failure requiring BiPAP Chronic CO2 retention Possible DAYANA Aspiration risk s/p recent PNA Dysphagia , s/p PEG , pulled out, s/p replacement of PEG 11/16 Acute kidney injury on chronic kidney disease, requiring start of HD 10/30 Anemia of chronic kidney disease PAF/flutter- converted to SR Diabetes mellitus HTN PVD with hx of bilateral foot MTA Refusal of care PLAN OF CARE tele BiPAP at HS and prn , refusing again currently on O2 3 L via NC titrate O2, pulm toilet patient likely has DAYANA. recommend sleep study as OP CXR 11/28 mild vascular congestion and small bilateral pleural effusions, slightly improved when compared to October 31, 2019. No pneumothorax. Cardiomegaly. Calcified aorta. ABG prn rapid COVID NGT, BiPAP prn and HS-continued to refuse developed A flutter/ fib 12/03 seen by cardio already spontaneously converter to SR on a/c with Eliquis, rate controlled with BB ECHO with pEF 55-60% rate control with BB, HR stable on chronic a/c , was on hold for PEG, Eliquis afterwards resumed BP management with CCB and BB, optimize as needed continue statin ethics eval if pt can refuse BiPAP ( patient with dementia, confusion), daughter wants BiPAP and unclear how he refused if was on restraints? in our opinion BiPAP should be on standing order and available in the facility when patient will be transferred need formal polysomnogram to be done as OP bioethics eval appreciated, done 11/25 . per bioethics: pt with diminished capacity and does not understand the consequences of refusing bi-pap, yet it seems inhumane to force him to endure it recommended that he should be discharged to the SNF on nasal canula with instruc tions not to be sent back to the acute care hospital for refusal to accept bi- pap. bioethics offered to have a family conference to explain the reasoning if the family is willing to speak with us. SHERRIE spoke with daughter and ( through RN staff cytotechnologist) re further GOC and code status 11/29 daughter and decided on DNR/DNI status , which was relayed to me by SW 12/02 Dr Pabon spoke with Dr Chang, code status changed on 12/06 to DNR/DNI dc plan to SNF ; SHERRIE discussed with family ( not want [facility]) , ongoing search for the facility completed Rx for PNA on prior admission Venous Duplex BLE 10/25 -> NGT aspir precautions, new BSSE pending TF via GT for now protein supplements HD as per nephro recs monitor volumes, renal paramerts, lytes s/p placement of permanent HD catheter R chest 11/07 s/p removal of temporary HD catheter by surgeon prior HgA1c -6.1 hold oral anti-glycemic monitor HH with goal to keep Hgb above 7 anemia w/up prior noted , heme on board on EPO GI prophayxlis supportive care dc plan in progress case discussed and evaluated by supervising physician Leoncio Galan MD 12/08/19 2123: Subjective Allergies: Coded Allergies: PENICILLINS (Verified Allergy, Unknown, 10/25/19) tolerated Ceftriaxone Uncoded Allergies: PENICILLIN (Allergy, Unknown, 11/23/19) Assessment/Plan Assessment/Plan Patient seen and examined with SUPERVISOR FELTING and I agree with the above formulated assessment and plan. Reema Hanna NP Dec 08, 2019 11:21 Leoncio Galan MD Dec 08, 2019 21:23
[2019-12-08 12:00] VITALS: BP 136/50
--- NOTE | 2019-12-08 15:13 | Diagnostic Imaging Report ---
Indication: Gastrostomy tube placement verification Technique: Portable frontal view the abdomen was obtained following injection of 30 cc of contrast via the gastrostomy tube. Comparison: 11/14/2019 Findings: Ejected contrast opacifies the stomach and some proximal small bowel loops. Bowel gas pattern is nonspecific but not obstructive. Basilar opacities noted in the lung bases. There is a layering right pleural effusion. No acute osseous abnormality. Vascular stent partially visualized. IMPRESSION: Gastrostomy tube in the stomach. Injected contrast opacifies the stomach and proximal small bowel loops.
[2019-12-08 16:00] VITALS: BP 137/44
--- NOTE | 2019-12-08 16:22 | Cardiology Progress Note ---
Assessment/Plan Status: stable Assessment/Plan Assessment/Plan 1. Atrial flutter. 12-lead EKG is typical atrial flutter. Echo EF 55%. Ruled out for RI protocol. Continue Amiodarone 200 bid, metoprolol 12.5 mg b.i.d. and Eliquis. In SR today again 2. Hypertension, on metoprolol 12.5 mg bid ,amlodipine 5 mg b.i.d., on hem odialysis. 3. Hyperlipidemia, on Lipitor. 4. End-stage renal disease, on hemodialysis. 5. Diabetes on insulin. 6. DNR/DNI status as of December 03, 2019. 7. COPD, off BiPAP. 8. Peripheral vascular disease, status post bilateral transmetatarsal amputation. 9. Confusion, in restraint. Subjective Cardiovascular: Reports: no symptoms Respiratory: Reports: no symptoms Gastrointestinal/Abdominal: Reports: no symptoms Genitourinary: Reports: no symptoms Subjective COVERAGE FOR [employer] Objective Last 24 Hour Vital Signs Date Time Temp Pulse Resp B/P (MAP) Pulse Ox O2 Delivery O2 Flow Rate FiO2 12/08/19 12:00 98.1 67 20 136/50 (78) 100 12/08/19 12:00 67 12/08/19 09:00 Nasal Cannula 2.0 12/08/19 09:00 61 128/40 12/08/19 09:00 61 128/40 12/08/19 08:00 61 12/08/19 08:00 97.9 60 20 128/40 (69) 100 12/08/19 07:00 100 Nasal Cannula 2.0 28 12/08/19 04:00 60 12/08/19 04:00 97.5 60 20 119/44 (69) 100 12/08/19 00:00 63 12/08/19 00:00 97.5 62 20 125/49 (74) 100 12/07/19 21:13 127/44 12/07/19 21:00 Nasal Cannula 2.0 12/07/19 21:00 127/44 12/07/19 20:20 98 Nasal Cannula 2.0 28 12/07/19 20:00 97.7 64 20 127/44 (71) 100 12/07/19 20:00 63 General Appearance: no apparent distress, alert EENT: PERRL/EOMI, normal ENT inspection, TMs normal, pharynx normal Neck: normal alignment, supple, normal inspection, no JVD Rhythm: NSR Cardiovascular: normal peripheral pulses, normal rate, regular rhythm Respiratory/Chest: chest wall non-tender, lungs clear, normal breath sounds Abdomen: normal bowel sounds, non tender, soft, no organomegaly Extremities: normal range of motion, non-tender, normal inspection Neurologic: roll changer II-XII grossly normal, no motor/sensory deficits Intake and Output 12/07/19 12/08/19 19:00 07:00 Intake Total 40 ml Output Total 3000 ml 150 ml Balance -3000 ml -110 ml Tube Feeding 40 ml Output Urine Total 150 ml Hemodialysis UF 3000 ml Laboratory Tests Test 12/07/19 17:15 12/08/19 05:21 12/08/19 05:37 POC Whole Blood Glucose 159 MG/DL (74-106) H 119 MG/DL (74-106) H White Blood Count 9.7 K/UL (4.8-10.8) Red Blood Count 3.10 M/UL (4.70-6.10) L Hemoglobin 8.7 G/DL (14.2-18.0) L Hematocrit 28.6 % (42.0-52.0) L Mean Corpuscular Volume 93 FL (80-99) Mean Corpuscular Hemoglobin 28.2 PG (27.0-31.0) Mean Corpuscular Hemoglobin Concent 30.5 G/DL (32.0-36.0) L Red Cell Distribution Width 15.6 % (11.6-14.8) H Platelet Count 314 K/UL (150-450) Mean Platelet Volume 6.9 FL (6.5-10.1) Neutrophils (%) (Auto) 75.9 % (45.0-75.0) H Lymphocytes (%) (Auto) 15.5 % (20.0-45.0) L Monocytes (%) (Auto) 6.5 % (1.0-10.0) Eosinophils (%) (Auto) 1.3 % (0.0-3.0) Basophils (%) (Auto) 0.7 % (0.0-2.0) Sodium Level 134 MMOL/L (136-145) L Potassium Level 4.5 MMOL/L (3.5-5.1) Chloride Level 99 MMOL/L (98-107) Carbon Dioxide Level 25 MMOL/L (21-32) Anion Gap 10 mmol/L (5-15) Blood Urea Nitrogen 48 mg/dL (7-18) H Creatinine 3.0 MG/DL (0.55-1.30) H Estimat Glomerular Filtration Rate 20.2 mL/min (>60) Glucose Level 105 MG/DL (74-106) Calcium Level 8.6 MG/DL (8.5-10.1) Phosphorus Level 3.5 MG/DL (2.5-4.9) Magnesium Level 2.5 MG/DL (1.8-2.4) H Total Bilirubin 0.4 MG/DL (0.2-1.0) Aspartate Amino Transf (AST/SGOT) 19 U/L (15-37) Alanine Aminotransferase (ALT/SGPT) 12 U/L (12-78) Alkaline Phosphatase 187 U/L (46-116) H C-Reactive Protein, Quantitative 5.1 mg/dL (0.00-0.90) H Pro-B-Type Natriuretic Peptide 97993 pg/mL (0-125) H Total Protein 7.0 G/DL (6.4-8.2) Albumin 2.6 G/DL (3.4-5.0) L Globulin 4.4 g/dL Albumin/Globulin Ratio 0.6 (1.0-2.7) L John Dias MD Dec 08, 2019 16:22
--- NOTE | 2019-12-08 19:57 | General Progress Note ---
Subjective Constitutional: Reports: no symptoms HEENT: Reports: no symptoms Cardiovascular: Reports: no symptoms Respiratory: Reports: no symptoms Gastrointestinal/Abdominal: Reports: no symptoms Genitourinary: Reports: no symptoms Neurologic/Psychiatric: Reports: no symptoms Hematologic/Lymphatic: Reports: no symptoms Allergies: Coded Allergies: PENICILLINS (Verified Allergy, Unknown, 10/25/19) tolerated Ceftriaxone Uncoded Allergies: PENICILLIN (Allergy, Unknown, 11/23/19) Objective Last 24 Hour Vital Signs Date Time Temp Pulse Resp B/P (MAP) Pulse Ox O2 Delivery O2 Flow Rate FiO2 12/08/19 18:51 99 Nasal Cannula 2.0 28 12/08/19 16:00 63 12/08/19 16:00 97.6 66 20 137/44 (75) 100 12/08/19 12:00 98.1 67 20 136/50 (78) 100 12/08/19 12:00 67 12/08/19 09:00 Nasal Cannula 2.0 12/08/19 09:00 61 128/40 12/08/19 09:00 61 128/40 12/08/19 08:00 61 12/08/19 08:00 97.9 60 20 128/40 (69) 100 12/08/19 07:00 100 Nasal Cannula 2.0 28 12/08/19 04:00 60 12/08/19 04:00 97.5 60 20 119/44 (69) 100 12/08/19 00:00 63 12/08/19 00:00 97.5 62 20 125/49 (74) 100 12/07/19 21:13 127/44 12/07/19 21:00 Nasal Cannula 2.0 12/07/19 21:00 127/44 12/07/19 20:20 98 Nasal Cannula 2.0 28 12/07/19 20:00 97.7 64 20 127/44 (71) 100 12/07/19 20:00 63 Intake and Output 12/07/19 12/08/19 19:00 07:00 Intake Total 40 ml Output Total 3000 ml 150 ml Balance -3000 ml -110 ml Tube Feeding 40 ml Output Urine Total 150 ml Hemodialysis UF 3000 ml Laboratory Tests 12/08/19 05:21: POC Whole Blood Glucose 119H 12/08/19 05:37: White Blood Count 9.7, Red Blood Count 3.10L, Hemoglobin 8.7L, Hematocrit 28.6L, Mean Corpuscular Volume 93, Mean Corpuscular Hemoglobin 28.2, Mean Corpuscular Hemoglobin Concent 30.5L, Red Cell Distribution Width 15.6H, Platelet Count 314, Mean Platelet Volume 6.9, Neutrophils (%) (Auto) 75.9H, Lymphocytes (%) (Auto) 15.5L, Monocytes (%) (Auto) 6.5, Eosinophils (%) (Auto) 1.3, Basophils (%) (Auto) 0.7, Sodium Level 134L, Potassium Level 4.5, Chloride Level 99, Carbon Dioxide Level 25, Anion Gap 10, Blood Urea Nitrogen 48H, Creatinine 3.0H, Estimat Glomerular Filtration Rate 20.2, Glucose Level 105, Calcium Level 8.6, Phosphorus Level 3.5, Magnesium Level 2.5H, Total Bilirubin 0.4, Aspartate Amino Transf (AST/SGOT) 19, Alanine Aminotransferase (ALT/SGPT) 12, Alkaline Phosphatase 187H, C-Reactive Protein, Quantitative 5.1H, Pro-B-Type Natriuretic Peptide 05571Y, Total Protein 7.0, Albumin 2.6L, Globulin 4.4, Albumin/Globulin Ratio 0.6L 12/08/19 17:33: POC Whole Blood Glucose 147H Height (Feet): 5 Height (Inches): 5.00 Weight (Pounds): 169 General Appearance: alert, confused EENT: normal ENT inspection Neck: supple Cardiovascular: normal rate, regular rhythm, no JVD Respiratory/Chest: lungs clear, normal breath sounds, no respiratory distress, no accessory muscle use Abdomen: normal bowel sounds, non tender, soft, no organomegaly, no mass Extremities: non-tender Skin: warm/dry Ayush Chang MD Dec 08, 2019 19:57
[2019-12-08 20:00] VITALS: BP 143/49
[2019-12-08] MEDS: Dyna-Hex 2% Top Sol 2oz TOPIC SCH (20:28)
[2019-12-08] MEDS: Epoetin Alfa-EPBX(ESRD on dialysis)10,000 unit/ml vial SUBQ SCH (20:30)
--- NOTE | 2019-12-08 21:58 | Cardiology Report ---
APPROVED REPORT EKG Measurement Heart [id number] <Conclusion> Atrial flutter with variable AV block Minimal voltage criteria for LVH, may be normal variant Nonspecific ST and T wave abnormality Abnormal ECG
[2019-12-09] VITALS: BP 125/45
[2019-12-09] MEDS: NovoLOG Insulin Flexpen SUBQ SCH ×4 (00:24→17:35)
[2019-12-09 04:00] VITALS: BP 125/42
[2019-12-09 08:00] VITALS: BP 128/80
--- NOTE | 2019-12-09 08:29 | Pulmonology Progress Note ---
Reema Hanna QUILTING MACHINE HELPER 12/09/19 0829: Subjective ROS Limited/Unobtainable: No Allergies: Coded Allergies: PENICILLINS (Verified Allergy, Unknown, 10/25/19) tolerated Ceftriaxone Uncoded Allergies: PENICILLIN (Allergy, Unknown, 11/23/19) All Systems: reviewed and negative except above Subjective on tele condition the same on O2 2 L via NC, pulse ox stable no signs of resp distress off BiPAP and continued to decline it bioethics eval was done 11/25 SHERRIE spoke with daughter and 11/29 SHERRIE discussed with daughter bioethics recs and further GOC and code status daughter and decided on DNR/DNI status , which was relayed to me by SHERRIE 12/02 in search of new SNF currently dc plan in process challenging placement code status changed to DNR/DNI on 12/06 by attending due to family wishes Objective Last 24 Hour Vital Signs Date Time Temp Pulse Resp B/P (MAP) Pulse Ox O2 Delivery O2 Flow Rate FiO2 12/09/19 08:13 Nasal Cannula 1.0 12/09/19 08:00 98.3 64 18 128/80 (96) 97 12/09/19 04:00 63 12/09/19 04:00 98.1 63 20 125/42 (69) 96 12/09/19 00:00 62 12/09/19 00:00 97.9 63 20 125/45 (71) 99 12/08/19 21:00 Nasal Cannula 1.0 12/08/19 20:29 69 145/56 12/08/19 20:28 68 145/56 12/08/19 20:00 66 12/08/19 20:00 98.2 71 22 143/49 (80) 99 12/08/19 18:51 99 Nasal Cannula 2.0 28 12/08/19 16:00 63 12/08/19 16:00 97.6 66 20 137/44 (75) 100 12/08/19 12:00 98.1 67 20 136/50 (78) 100 12/08/19 12:00 67 12/08/19 09:00 Nasal Cannula 2.0 12/08/19 09:00 61 128/40 12/08/19 09:00 61 128/40 Intake and Output 12/08/19 12/09/19 19:00 07:00 Intake Total 40 ml 450 ml Output Total 50 ml Balance -10 ml 450 ml Intake Free Water 150 ml Tube Feeding 40 ml 300 ml Output Urine Total 50 ml Objective General Appearance: alert , confused, Latvian speaking Lines, tubes and drains: peripheral HEENT: normocephalic, atraumatic, anicteric, O2 via NC Neck: supple Respiratory/Chest: lungs clear, no respiratory distress Cardiovascular/Chest: normal rate, SR with 1 st degree AV block Abdomen: non tender, soft, feeding tube - G tube Extremities: BL foot TMA Neurologic: abnormal gait, alert, confused, responsive Musculoskeletal: atrophy - BLE Laboratory Tests 12/08/19 12:12: POC Whole Blood Glucose 135H 12/08/19 17:33: POC Whole Blood Glucose 147H 12/09/19 00:21: POC Whole Blood Glucose 169H 12/09/19 06:18: POC Whole Blood Glucose 175H Current Medications Medications (Trade) Dose Ordered Sig/Cammy Route PRN Reason Start Time Stop Time Status Last Admin Dose Admin Allopurinol (allopurinoL) 300 mg DAILY ORAL 11/26/19 10:30 12/24/19 10:29 12/07/19 09:06 Amiodarone HCl (Cordarone) 200 mg EVERY 12 HOURS ORAL 12/04/19 21:00 03/03/20 20:59 12/08/19 20:29 Amlodipine Besylate (Norvasc) 5 mg Q12HR GT 11/28/19 21:00 12/24/19 10:29 12/08/19 20:28 Apixaban (Eliquis) 2.5 mg BID ORAL 11/26/19 10:30 02/22/20 10:29 12/08/19 17:42 Atorvastatin Calcium (Lipitor) 10 mg BEDTIME ORAL 11/26/19 21:00 02/22/20 20:59 12/08/19 20:29 Chlorhexidine Gluconate (Yi-Hex 2%) 1 applic DAILY@1999 TOPIC 11/26/19 20:00 02/24/20 19:59 12/08/19 20:28 Dextrose (Dextrose 50%) 25 ml Q30M PRN IV Hypoglycemia 12/03/19 10:30 03/02/20 10:29 Dextrose (Dextrose 50%) 50 ml Q30M PRN IV Hypoglycemia 12/03/19 10:30 03/02/20 10:29 Diphenhydramine HCl (Benadryl) 25 mg Q8H PRN NG Itching 12/03/19 09:30 01/02/20 09:29 12/04/19 12:28 Docusate Sodium (Colace) 100 mg THREE TIMES A DAY NG 11/28/19 13:00 12/28/19 12:59 12/08/19 17:42 Epoetin William (Epoetin William(ESRD on dialysis)) 10,000 unit FRI-FRI-FRI SUBQ 12/01/19 21:00 02/29/20 20:59 12/08/19 20:30 Insulin Aspart (NovoLOG) Q6HR SUBQ 12/03/19 12:00 03/02/20 11:59 12/09/19 06:24 Lansoprazole (Prevacid) 30 mg DAILY GT 11/28/19 10:45 12/28/19 10:44 12/07/19 09:05 Metoprolol Tartrate (Lopressor) 12.5 mg Q12HR GT 11/29/19 09:00 02/27/20 08:59 12/08/19 20:29 Sennosides (Senokot) 8.6 mg DAILY PRN ORAL Constipation 11/26/19 10:30 12/26/19 10:29 Assessment/Plan Assessment/Plan ASSESSMENT Prior acute hypoxemic hypercapnic respiratory failure requiring BiPAP Chronic CO2 retention Possible DAYANA Aspiration risk s/p recent PNA Dysphagia , s/p PEG , pulled out, s/p replacement of PEG 11/16 Acute kidney injury on chronic kidney disease, requiring start of HD 10/30 Anemia of chronic kidney disease PAF/flutter- converted to SR Diabetes mellitus HTN PVD with hx of bilateral foot MTA Refusal of care PLAN OF CARE tele BiPAP at HS and prn , refusing again currently on O2 3 L via NC titrate O2, pulm toilet patient likely has DAYANA. recommend sleep study as OP CXR 11/28 mild vascular congestion and small bilateral pleural effusions, slightly improved when compared to October 31, 2019. No pneumothorax. Cardiomegaly. Calcified aorta. ABG prn rapid COVID NGT, BiPAP prn and HS-continued to refuse developed A flutter/ fib 12/03 seen by cardio already spontaneously converter to SR on a/c with Eliquis, rate controlled with BB ECHO with pEF 55-60% rate control with BB, HR stable on chronic a/c , was on hold for PEG, Eliquis afterwards resumed BP management with CCB and BB, optimize as needed continue statin ethics eval if pt can refuse BiPAP ( patient with dementia, confusion), daughter wants BiPAP and unclear how he refused if was on restraints? in our opinion BiPAP should be on standing order and available in the facility when patient will be transferred need formal polysomnogram to be done as OP bioethics eval appreciated, done 11/25 . per bioethics: pt with diminished capacity and does not understand the consequences of refusing bi-pap, yet it seems inhumane to force him to endure it recommended that he should be discharged to the SNF on nasal canula with instructions not to be sent back to the acute care hospital for refusal to accept bi-pap. bioethics offered to have a family conference to explain the reasoning if the family is willing to speak with us. SHERRIE spoke with daughter and ( through RN hydroponics grower) re further GOC and code status 11/29 daughter and decided on DNR/DNI status , which was relayed to me by SW 12/02 Dr Pabon spoke with Dr Chang, code status changed on 12/06 to DNR/DNI dc plan to SNF ; SHERRIE discussed with family ( not want [facility]) , ongoing search for the facility completed Rx for PNA on prior admission Venous Duplex BLE 10/25 -> NGT aspir precautions, new BSSE pending TF via GT for now protein supplements HD as per nephro recs monitor volumes, renal paramerts, lytes s/p placement of permanent HD catheter R chest 11/07 s/p removal of temporary HD catheter by surgeon prior HgA1c -6.1 hold oral anti-glycemic monitor HH with goal to keep Hgb above 7 anemia w/up prior noted , heme on board on EPO GI prophayxlis supportive care dc plan in progress, challenging placement case discussed and evaluated by supervising physician Leoncio Galan MD 12/09/197: Subjective Allergies: Coded Allergies: PENICILLINS (Verified Allergy, Unknown, 10/25/19) tolerated Ceftriaxone Uncoded Allergies: PENICILLIN (Allergy, Unknown, 11/23/19) Assessment/Plan Assessment/Plan Patient seen and examined with QUILTING MACHINE HELPER and I agree with the above formulated assessment and plan. Reema Hanna NP Dec 09, 2019 08:29 Leoncio Galan MD Dec 09, 2019 21:09
[2019-12-09] MEDS: Amiodarone 200mg tab ORAL SCH ×2 (09:08→20:54)
[2019-12-09] MEDS: Metoprolol Tartrate 12.5mg TAB GT SCH ×2 (09:08→20:54)
[2019-12-09] MEDS: Docusate 100mg/10ml Liq NG SCH ×3 (09:09→17:35)
[2019-12-09] MEDS: Eliquis 2.5mg tablet ORAL SCH ×2 (09:09→17:10)
[2019-12-09 11:55] VITALS: BP 136/53
--- NOTE | 2019-12-09 13:43 | General Progress Note ---
Subjective ROS Limited/Unobtainable: No Allergies: Coded Allergies: PENICILLINS (Verified Allergy, Unknown, 10/25/19) tolerated Ceftriaxone Uncoded Allergies: PENICILLIN (Allergy, Unknown, 11/23/19) Objective Last 24 Hour Vital Signs Date Time Temp Pulse Resp B/P (MAP) Pulse Ox O2 Delivery O2 Flow Rate FiO2 12/09/19 12:00 64 12/09/19 11:55 98.1 63 21 136/53 (80) 97 12/09/19 09:08 64 128/80 12/09/19 09:08 64 128/80 12/09/19 08:13 Nasal Cannula 1.0 12/09/19 08:00 98.3 64 18 128/80 (96) 97 12/09/19 08:00 64 12/09/19 04:00 63 12/09/19 04:00 98.1 63 20 125/42 (69) 96 12/09/19 00:00 62 12/09/19 00:00 97.9 63 20 125/45 (71) 99 12/08/19 21:00 Nasal Cannula 1.0 12/08/19 20:29 69 145/56 12/08/19 20:28 68 145/56 12/08/19 20:00 66 12/08/19 20:00 98.2 71 22 143/49 (80) 99 12/08/19 18:51 99 Nasal Cannula 2.0 28 12/08/19 16:00 63 12/08/19 16:00 97.6 66 20 137/44 (75) 100 Intake and Output 12/08/19 12/09/19 19:00 07:00 Intake Total 40 ml 490 ml Output Total 50 ml Balance -10 ml 490 ml Intake Free Water 150 ml Tube Feeding 40 ml 340 ml Output Urine Total 50 ml Laboratory Tests 12/08/19 17:33: POC Whole Blood Glucose 147H 12/09/19 00:21: POC Whole Blood Glucose 169H 12/09/19 05:37: Hepatitis A IgM Antibody [Pending], Hepatitis A Antibody Total [Pending], Hepatitis B Surface Antigen [Pending], Hepatitis B Surface Antibody, Quant [Pending], Hepatitis B Core IgM Antibody [Pending], Hepatitis C Antibody [Pending] 12/09/19 06:18: POC Whole Blood Glucose 175H 12/09/19 12:05: POC Whole Blood Glucose [Pending] Height (Feet): 5 Height (Inches): 5.00 Weight (Pounds): 169 General Appearance: no apparent distress EENT: normal ENT inspection Neck: supple Cardiovascular: normal rate Respiratory/Chest: decreased breath sounds Abdomen: normal bowel sounds, non tender, soft Extremities: non-tender Assessment/Plan Problem List: (1) Hypertension ICD Codes: I10 - Essential (primary) hypertension SNOMED: 53130185 (2) Diabetes mellitus ICD Codes: E11.9 - Type 2 diabetes mellitus without complications SNOMED: 85203889 (3) Cholelithiasis ICD Codes: K80.20 - Calculus of gallbladder without cholecystitis without obstruction SNOMED: 451396405 Status: stable Assessment/Plan: dysphagia s/p GT placement patient pulled the GT again 20 Fr GT was placed at the bedside yesterday resume GTF fu H&H prn blood transfusion Lawrence Humphreys MD Dec 09, 2019 13:42
--- NOTE | 2019-12-09 13:43 | Cardiology Progress Note ---
Assessment/Plan Status: stable Assessment/Plan Assessment/Plan 1. Atrial flutter. 12-lead EKG is typical atrial flutter. Echo EF 55%. Ruled out for NM protocol. Continue Amiodarone 200 bid, metoprolol 12.5 mg b.i.d. and Eliquis. In SR today again 2. Hypertension, on metoprolol 12.5 mg bid ,amlodipine 5 mg b.i.d., on hem odialysis. 3. Hyperlipidemia, on Lipitor. 4. End-stage renal disease, on hemodialysis. 5. Diabetes on insulin. 6. DNR/DNI status as of December 03, 2019. 7. COPD, off BiPAP. 8. Peripheral vascular disease, status post bilateral transmetatarsal amputation. 9. Confusion, in restraint. Subjective Cardiovascular: Reports: no symptoms Respiratory: Reports: no symptoms Gastrointestinal/Abdominal: Reports: no symptoms Genitourinary: Reports: no symptoms Subjective COVERAGE FOR [employer] Objective Last 24 Hour Vital Signs Date Time Temp Pulse Resp B/P (MAP) Pulse Ox O2 Delivery O2 Flow Rate FiO2 12/09/19 12:00 64 12/09/19 11:55 98.1 63 21 136/53 (80) 97 12/09/19 09:08 64 128/80 12/09/19 09:08 64 128/80 12/09/19 08:13 Nasal Cannula 1.0 12/09/19 08:00 98.3 64 18 128/80 (96) 97 12/09/19 08:00 64 12/09/19 04:00 63 12/09/19 04:00 98.1 63 20 125/42 (69) 96 12/09/19 00:00 62 12/09/19 00:00 97.9 63 20 125/45 (71) 99 12/08/19 21:00 Nasal Cannula 1.0 12/08/19 20:29 69 145/56 12/08/19 20:28 68 145/56 12/08/19 20:00 66 12/08/19 20:00 98.2 71 22 143/49 (80) 99 12/08/19 18:51 99 Nasal Cannula 2.0 28 12/08/19 16:00 63 12/08/19 16:00 97.6 66 20 137/44 (75) 100 General Appearance: no apparent distress, alert EENT: PERRL/EOMI, TMs normal Neck: normal alignment, normal inspection, no JVD Rhythm: NSR Cardiovascular: normal rate, regular rhythm Respiratory/Chest: chest wall non-tender, lungs clear, normal breath sounds Abdomen: normal bowel sounds, non tender, soft, no organomegaly Extremities: normal range of motion, non-tender, normal inspection Neurologic: 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 miller 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 grossly normal, no motor/sensory deficits Intake and Output 12/08/19 12/09/19 19:00 07:00 Intake Total 40 ml 490 ml Output Total 50 ml Balance -10 ml 490 ml Intake Free Water 150 ml Tube Feeding 40 ml 340 ml Output Urine Total 50 ml Laboratory Tests Test 12/08/19 17:33 12/09/19 00:21 12/09/19 05:37 12/09/19 06:18 POC Whole Blood Glucose 147 MG/DL (74-106) H 169 MG/DL (74-106) H 175 MG/DL (74-106) H Hepatitis A IgM Antibody Pending Hepatitis A Antibody Total Pending Hepatitis B Surface Antigen Pending Hepatitis B Surface Antibody, Quant Pending Hepatitis B Core IgM Antibody Pending Hepatitis C Antibody Pending Test 12/09/19 12:05 POC Whole Blood Glucose Pending John Dias MD Dec 09, 2019 13:42
[2019-12-09 16:00] VITALS: BP 134/49
--- NOTE | 2019-12-09 16:18 | Nephrology Progress Note ---
Assessment/Plan Problem List: (1) Respiratory distress (2) Diabetes mellitus (3) Hypertension (4) Renal failure (ARF), acute on chronic Assessment Patient's current problem is dyspnea Most likely volume overload versus pneumonitis Other conditions: Renal failure (ARF), acute on chronic h/o Metabolic acidosis h/oElectrolyte imbalance Hyponatremia and hyperkalemia h/oAnemia h/o CHF (congestive heart failure) Plan December 08: Last dialysis December 06. No chemistry panel today. Will check lab tomorrow. Hemodialysis as needed. December 07: Dialyzed yesterday. Labs reviewed. Stable from renal standpoint of view. December 06: Due for dialysis today. CBC and medication list reviewed. Continue per consultants. Hemoglobin drifting down. Will check CBC and chemistry panel tomorrow December 05: Labs reviewed. Serum creatinine up to 4.2. Calculated GFR 13. Last dialysis December 02. Will order dialysis tomorrow. December 04: Status quo. Labs reviewed. Continue per current management. December 03: Patient was dialyzed yesterday. Labs reviewed. Continue per current management. December 02: Due for dialysis today. Blood pressure medications on hold. Albumin 25% for BP support during dialysis. Continue to monitor renal parameters. December 01: Labs reviewed. Medication reviewed. Creatinine higher. Hemodialysis for tomorrow. Continue rest. November 30: Patient was last dialyzed November 28. Not in any distress now. Appears to be more verbal today. Labs reviewed. Creatinine 3.8. Hemoglobin lower at 7.9. 1 dose of IV iron ordered. Subcu Epogen ordered. November 29: Dialyzed yesterday. Status quo. Will check chemistry panel tomorrow. Dialysis as needed. Continue per PMD and consultants. November 28: Due for dialysis and ultrafiltration today. Labs and medications reviewed. Blood pressure is stable. November 27: BNP rising. Not much urine output. Will dialyze and ultrafiltrate tomorrow. Labs reviewed. Continue to adjust blood pressure medications. Continue per consultants. November 26: Last dialysis November 24. Status quo. Labs reviewed. Medication list reviewed. Continue to monitor renal parameters. Dialysis as needed. November 25: Patient was dialyzed yesterday. Today is due for insertion of a GT tube. Patient pulled out his previous GT tube. Labs reviewed. Electrolytes abnormalities adjusted. Continue to monitor renal parameters. Patient is off BiPAP and on nasal cannula now. I believe that upon discharge the patient requires 2-3 times a week dialysis and ultrafiltration however upon discharge the patient needs to be followed by a machinist bench in the facility that he goes to to assess on a regular basis the need and frequency for dialysis. November 24 : Late [place] [facility] [place] Patient due for dialysis and ultrafiltration today. Labs reviewed. Chest x-ray results not available on EMR. Last dialysis November 21. Continue pulmonary toilet. Patient remains on BiPAP. Will check labs tomorrow. Subjective ROS Limited/Unobtainable: No Constitutional: Reports: malaise Objective Objective Last 24 Hour Vital Signs Date Time Temp Pulse Resp B/P (MAP) Pulse Ox O2 Delivery O2 Flow Rate FiO2 12/09/19 12:00 64 12/09/19 11:55 98.1 63 21 136/53 (80) 97 12/09/19 09:08 64 128/80 12/09/19 09:08 64 128/80 12/09/19 08:13 Nasal Cannula 1.0 12/09/19 08:00 98.3 64 18 128/80 (96) 97 12/09/19 08:00 64 12/09/19 04:00 63 12/09/19 04:00 98.1 63 20 125/42 (69) 96 12/09/19 00:00 62 12/09/19 00:00 97.9 63 20 125/45 (71) 99 12/08/19 21:00 Nasal Cannula 1.0 12/08/19 20:29 69 145/56 12/08/19 20:28 68 145/56 12/08/19 20:00 66 12/08/19 20:00 98.2 71 22 143/49 (80) 99 12/08/19 18:51 99 Nasal Cannula 2.0 28 Intake and Output 12/08/19 12/09/19 19:00 07:00 Intake Total 40 ml 490 ml Output Total 50 ml Balance -10 ml 490 ml Intake Free Water 150 ml Tube Feeding 40 ml 340 ml Output Urine Total 50 ml Laboratory Tests 12/08/19 17:33: POC Whole Blood Glucose 147H 12/09/19 00:21: POC Whole Blood Glucose 169H 12/09/19 05:37: Hepatitis A IgM Antibody [Pending], Hepatitis A Antibody Total [Pending], Hepatitis B Surface Antigen [Pending], Hepatitis B Surface Antibody, Quant [Pending], Hepatitis B Core IgM Antibody [Pending], Hepatitis C Antibody [Pending] 12/09/19 06:18: POC Whole Blood Glucose 175H 12/09/19 12:05: POC Whole Blood Glucose [Pending] Height (Feet): 5 Height (Inches): 5.00 Weight (Pounds): 169 General Appearance: no apparent distress Cardiovascular: normal rate Respiratory/Chest: decreased breath sounds Abdomen: distended Objective No change Naveed Vanegas MD Dec 09, 2019 16:18
[2019-12-09 20:00] VITALS: BP 140/51
--- NOTE | 2019-12-09 20:05 | General Progress Note ---
Subjective Constitutional: Reports: no symptoms HEENT: Reports: no symptoms Cardiovascular: Reports: no symptoms Respiratory: Reports: no symptoms Gastrointestinal/Abdominal: Reports: no symptoms Genitourinary: Reports: no symptoms Neurologic/Psychiatric: Reports: no symptoms Hematologic/Lymphatic: Reports: no symptoms Allergies: Coded Allergies: PENICILLINS (Verified Allergy, Unknown, 10/25/19) tolerated Ceftriaxone Uncoded Allergies: PENICILLIN (Allergy, Unknown, 11/23/19) Objective Last 24 Hour Vital Signs Date Time Temp Pulse Resp B/P (MAP) Pulse Ox O2 Delivery O2 Flow Rate FiO2 12/09/19 19:26 98 Nasal Cannula 2.0 28 12/09/19 16:00 63 12/09/19 16:00 97.1 63 18 134/49 (77) 97 12/09/19 12:00 64 12/09/19 11:55 98.1 63 21 136/53 (80) 97 12/09/19 09:08 64 128/80 12/09/19 09:08 64 128/80 12/09/19 08:16 98 Nasal Cannula 2.0 28 12/09/19 08:13 Nasal Cannula 1.0 12/09/19 08:00 98.3 64 18 128/80 (96) 97 12/09/19 08:00 64 12/09/19 04:00 63 12/09/19 04:00 98.1 63 20 125/42 (69) 96 12/09/19 00:00 62 12/09/19 00:00 97.9 63 20 125/45 (71) 99 12/08/19 21:00 Nasal Cannula 1.0 12/08/19 20:29 69 145/56 12/08/19 20:28 68 145/56 Intake and Output 12/08/19 12/09/19 19:00 07:00 Intake Total 40 ml 490 ml Output Total 50 ml Balance -10 ml 490 ml Intake Free Water 150 ml Tube Feeding 40 ml 340 ml Output Urine Total 50 ml Laboratory Tests 12/09/19 00:21: POC Whole Blood Glucose 169H 12/09/19 05:37: Hepatitis A IgM Antibody [Pending], Hepatitis A Antibody Total [Pending], Hepatitis B Surface Antigen [Pending], Hepatitis B Surface Antibody, Quant [Pending], Hepatitis B Core IgM Antibody [Pending], Hepatitis C Antibody [Pending] 12/09/19 06:18: POC Whole Blood Glucose 175H 12/09/19 12:05: POC Whole Blood Glucose [Pending] 12/09/19 17:13: POC Whole Blood Glucose 176H Height (Feet): 5 Height (Inches): 5.00 Weight (Pounds): 169 General Appearance: alert, alert oriented x3 EENT: normal ENT inspection Neck: supple Cardiovascular: normal rate, regular rhythm, no gallop/murmur, no JVD Respiratory/Chest: lungs clear, normal breath sounds, no respiratory distress, no accessory muscle use Abdomen: normal bowel sounds, non tender, soft, no organomegaly, no mass Extremities: normal range of motion, non-tender, normal inspection Skin: warm/dry Assessment/Plan Status: stable Ayush Chang MD Dec 09, 2019 20:05
[2019-12-09] MEDS: Dyna-Hex 2% Top Sol 2oz TOPIC SCH (20:53)
[2019-12-10] VITALS: BP 129/45
[2019-12-10] MEDS: NovoLOG Insulin Flexpen SUBQ SCH ×4 (00:48→17:18)
[2019-12-10 04:00] VITALS: BP 132/47
[2019-12-10 07:35] LABS: ALBUMIN 2.6 G/DL (3.4-5.0); ALBUMIN/GLOBULIN RATIO 0.6 (1.0-2.7); BILIRUBIN,TOTAL 0.4 MG/DL (0.2-1.0); CALCIUM 8.5 MG/DL (8.5-10.1); CREATININE 4.2 MG/DL (0.55-1.30); PHOSPHORUS 4.5 MG/DL (2.5-4.9); POTASSIUM 4.5 MMOL/L (3.5-5.1)
[2019-12-10 08:00] VITALS: BP 127/84
[2019-12-10 08:02] LABS: BASOPHILS % (AUTO) 1.2 % (0.0-2.0); EOSINOPHILS % (AUTO) 1.8 % (0.0-3.0); HEMATOCRIT 28.3 % (42.0-52.0); LYMPHOCYTES % (AUTO) 20.3 % (20.0-45.0); MEAN CORPUSCULAR VOLUME 90 FL (80-99); MONOCYTES % (AUTO) 5.2 % (1.0-10.0); NEUTROPHILS % (AUTO) 71.5 % (45.0-75.0); PLATELET COUNT 352 K/UL (150-450); RED BLOOD COUNT 3.15 M/UL (4.70-6.10); RED CELL DISTRIBUTION WIDTH 15.3 % (11.6-14.8); WHITE BLOOD COUNT 8.3 K/UL (4.8-10.8)
[2019-12-10] MEDS: Amiodarone 200mg tab ORAL SCH ×2 (09:09→21:24)
[2019-12-10] MEDS: Metoprolol Tartrate 12.5mg TAB GT SCH ×2 (09:09→21:24)
[2019-12-10] MEDS: Eliquis 2.5mg tablet ORAL SCH ×2 (09:10→17:15)
[2019-12-10] MEDS: Docusate 100mg/10ml Liq NG SCH ×3 (09:10→17:37)
--- NOTE | 2019-12-10 10:07 | Pulmonology Progress Note ---
Reema Hanna BELLMAKER 12/10/19 1007: Subjective ROS Limited/Unobtainable: No Allergies: Coded Allergies: PENICILLINS (Verified Allergy, Unknown, 10/25/19) tolerated Ceftriaxone Uncoded Allergies: PENICILLIN (Allergy, Unknown, 11/23/19) All Systems: reviewed and negative except above Subjective on tele condition the same on O2 2 L via NC, pulse ox stable off BiPAP and continued to decline it no signs of resp distress code status changed to DNR/DNI on 12/06 by attending due to family wishes dc plan in process challenging placement Objective Last 24 Hour Vital Signs Date Time Temp Pulse Resp B/P (MAP) Pulse Ox O2 Delivery O2 Flow Rate FiO2 12/10/19 09:10 63 127/84 12/10/19 09:09 63 127/84 12/10/19 08:14 Nasal Cannula 1.0 12/10/19 08:00 97.5 63 22 127/84 (98) 96 12/10/19 04:00 62 12/10/19 04:00 98.1 61 22 132/47 (75) 95 12/10/19 00:00 63 12/10/19 00:00 97.5 61 22 129/45 (73) 99 12/09/19 21:00 Nasal Cannula 1.0 12/09/19 20:54 64 12/09/19 20:54 64 140/51 12/09/19 20:00 97.3 64 22 140/51 (80) 99 12/09/19 20:00 62 12/09/19 19:26 98 Nasal Cannula 2.0 28 12/09/19 16:00 63 12/09/19 16:00 97.1 63 18 134/49 (77) 97 12/09/19 12:00 64 12/09/19 11:55 98.1 63 21 136/53 (80) 97 Intake and Output 12/09/19 12/10/19 19:00 07:00 Intake Total 740 ml 540 ml Output Total 300 ml Balance 740 ml 240 ml Intake Free Water 300 ml 100 ml Tube Feeding 440 ml 440 ml Output Urine Total 300 ml # Voids 3 # Bowel Movements 1 1 Objective General Appearance: alert , confused, Mongolian speaking Lines, tubes and drains: peripheral HEENT: normocephalic, atraumatic, anicteric, O2 via NC Neck: supple Respiratory/Chest: lungs clear, no respiratory distress Cardiovascular/Chest: normal rate, SR with 1 st degree AV block Abdomen: non tender, soft, feeding tube - G tube Extremities: BL foot TMA Neurologic: abnormal gait, alert, confused, responsive Musculoskeletal: atrophy - BLE Laboratory Tests 12/09/19 12:05: POC Whole Blood Glucose [Pending] 12/09/19 17:13: POC Whole Blood Glucose 176H 12/10/19 00:46: POC Whole Blood Glucose [Pending] 12/10/19 05:51: White Blood Count 8.3, Red Blood Count 3.15L, Hemoglobin 9.0L, Hematocrit 28.3L, Mean Corpuscular Volume 90, Mean Corpuscular Hemoglobin 28.6, Mean Corpuscular Hemoglobin Concent 31.7L, Red Cell Distribution Width 15.3H, Platelet Count 352, Mean Platelet Volume 6.3L, Neutrophils (%) (Auto) 71.5, Lymphocytes (%) (Auto) 20.3, Monocytes (%) (Auto) 5.2, Eosinophils (%) (Auto) 1.8, Basophils (%) (Auto) 1.2, Sodium Level 131L, Potassium Level 4.5, Chloride Level 97L, Carbon Dioxide Level 25, Anion Gap 9, Blood Urea Nitrogen 87H, Creatinine 4.2H, Estimat Glomerular Filtration Rate 13.7, Glucose Level 183H, Calcium Level 8.5, Phosphorus Level 4.5, Magnesium Level 3.1H, Total Bilirubin 0.4, Aspartate Amino Transf (AST/SGOT) 17, Alanine Aminotransferase (ALT/SGPT) 12, Alkaline Phosphatase 215H, Total Protein 6.7, Albumin 2.6L, Globulin 4.1, Albumin/Globulin Ratio 0.6L 12/10/19 06:43: POC Whole Blood Glucose 194H Current Medications Medications (Trade) Dose Ordered Sig/Cammy Route PRN Reason Start Time Stop Time Status Last Admin Dose Admin Allopurinol (allopurinoL) 300 mg DAILY ORAL 11/26/19 10:30 12/24/19 10:29 12/10/19 09:09 Amiodarone HCl (Cordarone) 200 mg EVERY 12 HOURS ORAL 12/04/19 21:00 03/03/20 20:59 12/10/19 09:09 Amlodipine Besylate (Norvasc) 5 mg Q12HR GT 11/28/19 21:00 12/24/19 10:29 12/10/19 09:10 Apixaban (Eliquis) 2.5 mg BID ORAL 11/26/19 10:30 02/22/20 10:29 12/10/19 09:10 Atorvastatin Calcium (Lipitor) 10 mg BEDTIME ORAL 11/26/19 21:00 02/22/20 20:59 12/09/19 20:54 Chlorhexidine Gluconate (Yi-Hex 2%) 1 applic DAILY@1999 TOPIC 11/26/19 20:00 02/24/20 19:59 12/09/19 20:53 Dextrose (Dextrose 50%) 25 ml Q30M PRN IV Hypoglycemia 12/03/19 10:30 03/02/20 10:29 Dextrose (Dextrose 50%) 50 ml Q30M PRN IV Hypoglycemia 12/03/19 10:30 03/02/20 10:29 Diphenhydramine HCl (Benadryl) 25 mg Q8H PRN NG Itching 12/03/19 09:30 01/02/20 09:29 12/04/19 12:28 Docusate Sodium (Colace) 100 mg THREE TIMES A DAY NG 11/28/19 13:00 12/28/19 12:59 12/10/19 09:10 Epoetin William (Epoetin William(ESRD on dialysis)) 10,000 unit FRI-FRI-FRI SUBQ 12/01/19 21:00 02/29/20 20:59 12/08/19 20:30 Insulin Aspart (NovoLOG) Q6HR SUBQ 12/03/19 12:00 03/02/20 11:59 12/10/19 06:46 Lansoprazole (Prevacid) 30 mg DAILY GT 11/28/19 10:45 12/28/19 10:44 12/10/19 09:09 Metoprolol Tartrate (Lopressor) 12.5 mg Q12HR GT 11/29/19 09:00 02/27/20 08:59 12/10/19 09:09 Sennosides (Senokot) 8.6 mg DAILY PRN ORAL Constipation 11/26/19 10:30 12/26/19 10:29 Assessment/Plan Assessment/Plan ASSESSMENT Prior acute hypoxemic hypercapnic respiratory failure requiring BiPAP Chronic CO2 retention Possible DAYANA Aspiration risk s/p recent PNA Dysphagia , s/p PEG , pulled out, s/p replacement of PEG 11/16 Acute kidney injury on chronic kidney disease, requiring start of HD 10/30 Anemia of chronic kidney disease PAF/flutter- converted to SR Diabetes mellitus HTN PVD with hx of bilateral foot MTA Refusal of care PLAN OF CARE tele BiPAP at HS and prn , refusing again currently on O2 3 L via NC titrate O2, pulm toilet patient likely has DAYANA. recommend sleep study as OP CXR 11/28 mild vascular congestion and small bilateral pleural effusions, slightly improved when compared to October 31, 2019. No pneumothorax. Cardiomegaly. Calcified aorta. ABG prn rapid COVID NGT, BiPAP prn and HS-continued to refuse developed A flutter/ fib 12/03 seen by cardio already spontaneously converter to SR on a/c with Eliquis, rate controlled with BB ECHO with pEF 55-60% rate control with BB, HR stable on chronic a/c , was on hold for PEG, Eliquis afterwards resumed BP management with CCB and BB, optimize as needed continue statin ethics eval if pt can refuse BiPAP ( patient with dementia, confusion), daughter wants BiPAP and unclear how he refused if was on restraints? in our opinion BiPAP should be on standing order and available in the facility when patient will be transferred need formal polysomnogram to be done as OP bioethics eval appreciated, done 11/25 . per bioethics: pt with diminished capacity and does not understand the consequences of refusing bi-pap, yet it seems inhumane to force him to endure it recommended that he should be discharged to the SNF on nasal canula with instructions not to be sent back to the acute care hospital for refusal to accept bi-pap. bioethics offered to have a family conference to explain the reasoning if the family is willing to speak with us. SHERRIE spoke with daughter and ( through RN limo driver) re further GOC and code status 11/29 daughter and decided on DNR/DNI status , which was relayed to me by SHERRIE 12/02 Dr Pabon spoke with Dr Chang, code status changed on 12/06 to DNR/DNI dc plan to SNF ; SHERRIE discussed with family ( not want [facility]) , ongoing search for the facility completed Rx for PNA on prior admission Venous Duplex BLE 10/25 -> NGT aspir precautions, new BSSE pending TF via GT for now protein supplements HD as per nephro recs monitor volumes, renal paramerts, lytes s/p placement of permanent HD catheter R chest 11/07 s/p removal of temporary HD catheter by surgeon prior HgA1c -6.1 hold oral anti-glycemic monitor HH with goal to keep Hgb above 7 anemia w/up prior noted , heme on board on EPO GI prophayxlis supportive care dc plan in progress, challenging placement case discussed and evaluated by supervising physician Leoncio Galan MD 12/10/19 1510: Subjective Allergies: Coded Allergies: PENICILLINS (Verified Allergy, Unknown, 10/25/19) tolerated Ceftriaxone Uncoded Allergies: PENICILLIN (Allergy, Unknown, 11/23/19) Assessment/Plan Assessment/Plan Patient seen and examined with BELLMAKER and I agree with the above formulated assessment and plan. Reema Hanna NP Dec 10, 2019 10:07 Leoncio Galan MD Dec 10, 2019 15:10
--- NOTE | 2019-12-10 11:05 | General Progress Note ---
Subjective ROS Limited/Unobtainable: No Allergies: Coded Allergies: PENICILLINS (Verified Allergy, Unknown, 10/25/19) tolerated Ceftriaxone Uncoded Allergies: PENICILLIN (Allergy, Unknown, 11/23/19) Objective Last 24 Hour Vital Signs Date Time Temp Pulse Resp B/P (MAP) Pulse Ox O2 Delivery O2 Flow Rate FiO2 12/10/19 09:10 63 127/84 12/10/19 09:09 63 127/84 12/10/19 08:14 Nasal Cannula 1.0 12/10/19 08:00 97.5 63 22 127/84 (98) 96 12/10/19 08:00 62 12/10/19 04:00 62 12/10/19 04:00 98.1 61 22 132/47 (75) 95 12/10/19 00:00 63 12/10/19 00:00 97.5 61 22 129/45 (73) 99 12/09/19 21:00 Nasal Cannula 1.0 12/09/19 20:54 64 12/09/19 20:54 64 140/51 12/09/19 20:00 97.3 64 22 140/51 (80) 99 12/09/19 20:00 62 12/09/19 19:26 98 Nasal Cannula 2.0 28 12/09/19 16:00 63 12/09/19 16:00 97.1 63 18 134/49 (77) 97 12/09/19 12:00 64 12/09/19 11:55 98.1 63 21 136/53 (80) 97 Intake and Output 12/09/19 12/10/19 19:00 07:00 Intake Total 740 ml 540 ml Output Total 300 ml Balance 740 ml 240 ml Intake Free Water 300 ml 100 ml Tube Feeding 440 ml 440 ml Output Urine Total 300 ml # Voids 3 # Bowel Movements 1 1 Laboratory Tests 12/09/19 12:05: POC Whole Blood Glucose [Pending] 12/09/19 17:13: POC Whole Blood Glucose 176H 12/10/19 00:46: POC Whole Blood Glucose [Pending] 12/10/19 05:51: White Blood Count 8.3, Red Blood Count 3.15L, Hemoglobin 9.0L, Hematocrit 28.3L, Mean Corpuscular Volume 90, Mean Corpuscular Hemoglobin 28.6, Mean Corpuscular Hemoglobin Concent 31.7L, Red Cell Distribution Width 15.3H, Platelet Count 352, Mean Platelet Volume 6.3L, Neutrophils (%) (Auto) 71.5, Lymphocytes (%) (Auto) 20.3, Monocytes (%) (Auto) 5.2, Eosinophils (%) (Auto) 1.8, Basophils (%) (Auto) 1.2, Sodium Level 131L, Potassium Level 4.5, Chloride Level 97L, Carbon Dioxide Level 25, Anion Gap 9, Blood Urea Nitrogen 87H, Creatinine 4.2H, Estimat Glomerular Filtration Rate 13.7, Glucose Level 183H, Calcium Level 8.5, Phosphorus Level 4.5, Magnesium Level 3.1H, Total Bilirubin 0.4, Aspartate Amino Transf (AST/SGOT) 17, Alanine Aminotransferase (ALT/SGPT) 12, Alkaline Phosphatase 215H, Total Protein 6.7, Albumin 2.6L, Globulin 4.1, Albumin/Glob ulin Ratio 0.6L 12/10/19 06:43: POC Whole Blood Glucose 194H Height (Feet): 5 Height (Inches): 5.00 Weight (Pounds): 169 General Appearance: no apparent distress EENT: normal ENT inspection Neck: supple Cardiovascular: normal rate Respiratory/Chest: decreased breath sounds Abdomen: normal bowel sounds, non tender, soft Extremities: non-tender Assessment/Plan Problem List: (1) Hypertension ICD Codes: I10 - Essential (primary) hypertension SNOMED: 63677391 (2) Diabetes mellitus ICD Codes: E11.9 - Type 2 diabetes mellitus without complications SNOMED: 38764604 (3) Cholelithiasis ICD Codes: K80.20 - Calculus of gallbladder without cholecystitis without obstruction SNOMED: 903771599 Status: stable Assessment/Plan: dysphagia s/p GT placement patient pulled the GT again 20 Fr GT was placed at the bedside yesterday GTF fu H&H prn blood transfusion Lawrence Humphreys MD Dec 10, 2019 11:05
[2019-12-10 12:00] VITALS: BP 140/52
--- NOTE | 2019-12-10 12:54 | Cardiology Progress Note ---
Assessment/Plan Status: stable Assessment/Plan Assessment/Plan 1. Atrial flutter. 12-lead EKG is typical atrial flutter. Echo EF 55%. Ruled out for IA protocol. Continue Amiodarone 200 bid, metoprolol 12.5 mg b.i.d. and Eliquis. In SR today again 2. Hypertension, on metoprolol 12.5 mg bid ,amlodipine 5 mg b.i.d., on hem odialysis. 3. Hyperlipidemia, on Lipitor. 4. End-stage renal disease, on hemodialysis. 5. Diabetes on insulin. 6. DNR/DNI status as of December 03, 2019. 7. COPD, off BiPAP. 8. Peripheral vascular disease, status post bilateral transmetatarsal amputation. 9. Confusion, in restraint. Subjective Cardiovascular: Reports: no symptoms Respiratory: Reports: no symptoms Gastrointestinal/Abdominal: Reports: no symptoms Genitourinary: Reports: no symptoms Subjective COVERAGE FOR TOLUIE NO Acute events, awaiting placement, no fever no CP Objective Last 24 Hour Vital Signs Date Time Temp Pulse Resp B/P (MAP) Pulse Ox O2 Delivery O2 Flow Rate FiO2 12/10/19 09:10 63 127/84 12/10/19 09:09 63 127/84 12/10/19 08:14 Nasal Cannula 1.0 12/10/19 08:00 97.5 63 22 127/84 (98) 96 12/10/19 08:00 62 12/10/19 07:52 96 Nasal Cannula 2.0 28 12/10/19 04:00 62 12/10/19 04:00 98.1 61 22 132/47 (75) 95 12/10/19 00:00 63 12/10/19 00:00 97.5 61 22 129/45 (73) 99 12/09/19 21:00 Nasal Cannula 1.0 12/09/19 20:54 64 12/09/19 20:54 64 140/51 12/09/19 20:00 97.3 64 22 140/51 (80) 99 12/09/19 20:00 62 12/09/19 19:26 98 Nasal Cannula 2.0 28 12/09/19 16:00 63 12/09/19 16:00 97.1 63 18 134/49 (77) 97 General Appearance: no apparent distress, alert EENT: PERRL/EOMI, normal ENT inspection, TMs normal, pharynx normal Neck: non-tender, supple, normal inspection Rhythm: NSR Cardiovascular: normal peripheral pulses, regular rhythm Respiratory/Chest: chest wall non-tender, normal breath sounds, no respiratory distress Abdomen: normal bowel sounds, non tender, soft, no organomegaly Extremities: normal range of motion, non-tender, normal inspection, no calf tenderness Neurologic: heel stainer II-XII grossly normal, no motor/sensory deficits Intake and Output 12/09/19 12/10/19 19:00 07:00 Intake Total 740 ml 540 ml Output Total 300 ml Balance 740 ml 240 ml Intake Free Water 300 ml 100 ml Tube Feeding 440 ml 440 ml Output Urine Total 300 ml # Voids 3 # Bowel Movements 1 1 Laboratory Tests Test 12/09/19 17:13 12/10/19 00:46 12/10/19 05:51 12/10/19 06:43 POC Whole Blood Glucose 176 MG/DL (74-106) H Pending 194 MG/DL (74-106) H White Blood Count 8.3 K/UL (4.8-10.8) Red Blood Count 3.15 M/UL (4.70-6.10) L Hemoglobin 9.0 G/DL (14.2-18.0) L Hematocrit 28.3 % (42.0-52.0) L Mean Corpuscular Volume 90 FL (80-99) Mean Corpuscular Hemoglobin 28.6 PG (27.0-31.0) Mean Corpuscular Hemoglobin Concent 31.7 G/DL (32.0-36.0) L Red Cell Distribution Width 15.3 % (11.6-14.8) H Platelet Count 352 K/UL (150-450) Mean Platelet Volume 6.3 FL (6.5-10.1) L Neutrophils (%) (Auto) 71.5 % (45.0-75.0) Lymphocytes (%) (Auto) 20.3 % (20.0-45.0) Monocytes (%) (Auto) 5.2 % (1.0-10.0) Eosinophils (%) (Auto) 1.8 % (0.0-3.0) Basophils (%) (Auto) 1.2 % (0.0-2.0) Sodium Level 131 MMOL/L (136-145) L Potassium Level 4.5 MMOL/L (3.5-5.1) Chloride Level 97 MMOL/L (98-107) L Carbon Dioxide Level 25 MMOL/L (21-32) Anion Gap 9 mmol/L (5-15) Blood Urea Nitrogen 87 mg/dL (7-18) H Creatinine 4.2 MG/DL (0.55-1.30) H Estimat Glomerular Filtration Rate 13.7 mL/min (>60) Glucose Level 183 MG/DL (74-106) H Calcium Level 8.5 MG/DL (8.5-10.1) Phosphorus Level 4.5 MG/DL (2.5-4.9) Magnesium Level 3.1 MG/DL (1.8-2.4) H Total Bilirubin 0.4 MG/DL (0.2-1.0) Aspartate Amino Transf (AST/SGOT) 17 U/L (15-37) Alanine Aminotransferase (ALT/SGPT) 12 U/L (12-78) Alkaline Phosphatase 215 U/L (46-116) H Total Protein 6.7 G/DL (6.4-8.2) Albumin 2.6 G/DL (3.4-5.0) L Globulin 4.1 g/dL Albumin/Globulin Ratio 0.6 (1.0-2.7) L John Dias MD Dec 10, 2019 12:54
--- NOTE | 2019-12-10 14:29 | Nephrology Progress Note ---
Assessment/Plan Problem List: (1) Respiratory distress (2) Diabetes mellitus (3) Hypertension (4) Renal failure (ARF), acute on chronic Assessment Patient's current problem is dyspnea Most likely volume overload versus pneumonitis Other conditions: Renal failure (ARF), acute on chronic h/o Metabolic acidosis h/oElectrolyte imbalance Hyponatremia and hyperkalemia h/oAnemia h/o CHF (congestive heart failure) Plan December 09: Last dialyzed December 06. Labs reviewed. Will order dialysis tomorrow. Continue current treatment plan. December 08: Last dialysis December 06. No chemistry panel today. Will check lab tomorrow. Hemodialysis as needed. December 07: Dialyzed yesterday. Labs reviewed. Stable from renal standpoint of view. December 06: Due for dialysis today. CBC and medication list reviewed. Continue per consultants. Hemoglobin drifting down. Will check CBC and chemistry panel tomorrow December 05: Labs reviewed. Serum creatinine up to 4.2. Calculated GFR 13. Last dialysis December 02. Will order dialysis tomorrow. December 04: Status quo. Labs reviewed. Continue per current management. December 03: Patient was dialyzed yesterday. Labs reviewed. Continue per current management. December 02: Due for dialysis today. Blood pressure medications on hold. Albumin 25% for BP support during dialysis. Continue to monitor renal parameters. December 01: Labs reviewed. Medication reviewed. Creatinine higher. Hemodialysis for tomorrow. Continue rest. November 30: Patient was last dialyzed November 28. Not in any distress now. Appears to be more verbal today. Labs reviewed. Creatinine 3.8. Hemoglobin lower at 7.9. 1 dose of IV iron ordered. Subcu Epogen ordered. November 29: Dialyzed yesterday. Status quo. Will check chemistry panel tomorrow. Dialysis as needed. Continue per PMD and consultants. November 28: Due for dialysis and ultrafiltration today. Labs and medications reviewed. Blood pressure is stable. November 27: BNP rising. Not much urine output. Will dialyze and ultrafiltrate tomorrow. Labs reviewed. Continue to adjust blood pressure medications. Continue per consultants. November 26: Last dialysis November 24. Status quo. Labs reviewed. Medication list reviewed. Continue to monitor renal parameters. Dialysis as needed. November 25: Patient was dialyzed yesterday. Today is due for insertion of a GT tube. Patient pulled out his previous GT tube. Labs reviewed. Electrolytes abnormalities adjusted. Continue to monitor renal parameters. Patient is off BiPAP and on nasal cannula now. I believe that upon discharge the patient requires 2-3 times a week dialysis and ultrafiltration however upon discharge the patient needs to be followed by a jackhammer splitter operator in the facility that he goes to to assess on a regular basis the need and frequency for dialysis. November 24 : Late note entry due to system problem at the [facility] today. Patient due for dialysis and ultrafiltration today. Labs reviewed. Chest x-ray results not available on EMR. Last dialysis November 21. Continue pulmonary toilet. Patient remains on BiPAP. Will check labs tomorrow. Subjective ROS Limited/Unobtainable: Yes Constitutional: Reports: malaise Objective Objective Last 24 Hour Vital Signs Date Time Temp Pulse Resp B/P (MAP) Pulse Ox O2 Delivery O2 Flow Rate FiO2 12/10/19 12:00 98.1 58 22 140/52 (81) 96 12/10/19 12:00 59 12/10/19 09:10 63 127/84 12/10/19 09:09 63 127/84 12/10/19 08:14 Nasal Cannula 1.0 12/10/19 08:00 97.5 63 22 127/84 (98) 96 12/10/19 08:00 62 12/10/19 07:52 96 Nasal Cannula 2.0 28 12/10/19 04:00 62 12/10/19 04:00 98.1 61 22 132/47 (75) 95 12/10/19 00:00 63 12/10/19 00:00 97.5 61 22 129/45 (73) 99 12/09/19 21:00 Nasal Cannula 1.0 12/09/19 20:54 64 12/09/19 20:54 64 140/51 12/09/19 20:00 97.3 64 22 140/51 (80) 99 12/09/19 20:00 62 12/09/19 19:26 98 Nasal Cannula 2.0 28 12/09/19 16:00 63 12/09/19 16:00 97.1 63 18 134/49 (77) 97 Intake and Output 12/09/19 12/10/19 19:00 07:00 Intake Total 740 ml 540 ml Output Total 300 ml Balance 740 ml 240 ml Intake Free Water 300 ml 100 ml Tube Feeding 440 ml 440 ml Output Urine Total 300 ml # Voids 3 # Bowel Movements 1 1 Laboratory Tests 12/09/19 17:13: POC Whole Blood Glucose 176H 12/10/19 00:46: POC Whole Blood Glucose [Pending] 12/10/19 05:51: White Blood Count 8.3, Red Blood Count 3.15L, Hemoglobin 9.0L, Hematocrit 28.3L, Mean Corpuscular Volume 90, Mean Corpuscular Hemoglobin 28.6, Mean Corpuscular Hemoglobin Concent 31.7L, Red Cell Distribution Width 15.3H, Platelet Count 352, Mean Platelet Volume 6.3L, Neutrophils (%) (Auto) 71.5, Lymphocytes (%) (Auto) 20.3, Monocytes (%) (Auto) 5.2, Eosinophils (%) (Auto) 1.8, Basophils (%) (Auto) 1.2, Sodium Level 131L, Potassium Level 4.5, Chloride Level 97L, Carbon Dioxide Level 25, Anion Gap 9, Blood Urea Nitrogen 87H, Creatinine 4.2H, Estimat Glomerular Filtration Rate 13.7, Glucose Level 183H, Calcium Level 8.5, Phosphorus Level 4.5, Magnesium Level 3.1H, Total Bilirubin 0.4, Aspartate Amino Transf (AST/SGOT) 17, Alanine Aminotransferase (ALT/SGPT) 12, Alkaline Phosphatase 215H, Total Protein 6.7, Albumin 2.6L, Globulin 4.1, Albumin/Globulin Ratio 0.6L 12/10/19 06:43: POC Whole Blood Glucose 194H Height (Feet): 5 Height (Inches): 5.00 Weight (Pounds): 169 General Appearance: no apparent distress, lethargic Cardiovascular: normal rate Respiratory/Chest: decreased breath sounds Abdomen: distended Objective No change Naveed Vanegas MD Dec 10, 2019 14:28
[2019-12-10 16:00] VITALS: BP 130/51
[2019-12-10 20:00] VITALS: BP 140/95
[2019-12-10] MEDS: Dyna-Hex 2% Top Sol 2oz TOPIC SCH (21:24)
[2019-12-10] MEDS: Epoetin Alfa-EPBX(ESRD on dialysis)10,000 unit/ml vial SUBQ SCH (21:25)
[2019-12-11] VITALS (7 sets, daily range): BP systolic 105–154; BP diastolic 47–61
[2019-12-11] MEDS: NovoLOG Insulin Flexpen SUBQ SCH ×4 (01:03→18:36)
--- NOTE | 2019-12-11 08:30 | Pulmonology Progress Note ---
Reema Hanna ELECTION ASSISTANT 12/11/19 0830: Subjective ROS Limited/Unobtainable: Yes Allergies: Coded Allergies: PENICILLINS (Verified Allergy, Unknown, 10/25/19) tolerated Ceftriaxone Uncoded Allergies: PENICILLIN (Allergy, Unknown, 11/23/19) All Systems: reviewed and negative except above Subjective transferred to [facility] floor condition the same on O2 2 L via NC, pulse ox stable off BiPAP and continued to decline it no signs of resp distress code status changed to DNR/DNI on 12/06 by attending due to family wishes dc plan in process challenging placement Objective Last 24 Hour Vital Signs Date Time Temp Pulse Resp B/P (MAP) Pulse Ox O2 Delivery O2 Flow Rate FiO2 12/11/19 04:00 97.8 63 19 135/58 (83) 95 12/11/19 00:00 97.6 62 18 154/54 (87) 97 12/10/19 21:24 61 134/46 12/10/19 21:24 61 134/46 12/10/19 21:00 Nasal Cannula 1.0 12/10/19 20:00 97.9 110 20 140/95 (110) 98 12/10/19 19:16 96 Nasal Cannula 2.0 28 12/10/19 16:00 59 12/10/19 16:00 98.0 58 20 130/51 (77) 96 12/10/19 12:00 98.1 58 22 140/52 (81) 96 12/10/19 12:00 59 12/10/19 09:10 63 127/84 12/10/19 09:09 63 127/84 Intake and Output 12/10/19 12/11/19 19:00 07:00 Intake Total 600 ml Output Total 300 ml 300 ml Balance 300 ml -300 ml Intake Free Water 200 ml Tube Feeding 400 ml Output Urine Total 300 ml 300 ml Objective General Appearance: alert , confused, Bengali speaking Lines, tubes and drains: peripheral HEENT: normocephalic, atraumatic, anicteric, O2 via NC Neck: supple Respiratory/Chest: lungs clear, no respiratory distress Cardiovascular/Chest: normal rate, SR with 1 st degree AV block Abdomen: non tender, soft, feeding tube - G tube Extremities: BL foot TMA Neurologic: abnormal gait, alert, confused, responsive Musculoskeletal: atrophy - BLE Laboratory Tests 12/10/19 11:34: POC Whole Blood Glucose 183H 12/10/19 17:14: POC Whole Blood Glucose [Pending] Current Medications Medications (Trade) Dose Ordered Sig/Cammy Route PRN Reason Start Time Stop Time Status Last Admin Dose Admin Allopurinol (allopurinoL) 300 mg DAILY ORAL 11/26/19 10:30 12/24/19 10:29 12/10/19 09:09 Amiodarone HCl (Cordarone) 200 mg EVERY 12 HOURS ORAL 12/04/19 21:00 03/03/20 20:59 12/10/19 21:24 Amlodipine Besylate (Norvasc) 5 mg Q12HR GT 11/28/19 21:00 12/24/19 10:29 12/10/19 21:24 Apixaban (Eliquis) 2.5 mg BID ORAL 11/26/19 10:30 02/22/20 10:29 12/10/19 17:15 Atorvastatin Calcium (Lipitor) 10 mg BEDTIME ORAL 11/26/19 21:00 02/22/20 20:59 12/10/19 21:24 Chlorhexidine Gluconate (Yi-Hex 2%) 1 applic DAILY@1999 TOPIC 11/26/19 20:00 02/24/20 19:59 12/10/19 21:24 Dextrose (Dextrose 50%) 25 ml Q30M PRN IV Hypoglycemia 12/03/19 10:30 03/02/20 10:29 Dextrose (Dextrose 50%) 50 ml Q30M PRN IV Hypoglycemia 12/03/19 10:30 03/02/20 10:29 Diphenhydramine HCl (Benadryl) 25 mg Q8H PRN NG Itching 12/03/19 09:30 01/02/20 09:29 12/04/19 12:28 Docusate Sodium (Colace) 100 mg THREE TIMES A DAY NG 11/28/19 13:00 12/28/19 12:59 12/10/19 09:10 Epoetin William (Epoetin William(ESRD on dialysis)) 10,000 unit FRI-FRI-FRI SUBQ 12/01/19 21:00 02/29/20 20:59 12/10/19 21:25 Insulin Aspart (NovoLOG) Q6HR SUBQ 12/03/19 12:00 03/02/20 11:59 12/11/19 05:53 Lansoprazole (Prevacid) 30 mg DAILY GT 11/28/19 10:45 12/28/19 10:44 12/10/19 09:09 Metoprolol Tartrate (Lopressor) 12.5 mg Q12HR GT 11/29/19 09:00 02/27/20 08:59 12/10/19 21:24 Sennosides (Senokot) 8.6 mg DAILY PRN ORAL Constipation 11/26/19 10:30 12/26/19 10:29 Assessment/Plan Assessment/Plan ASSESSMENT Prior acute hypoxemic hypercapnic respiratory failure requiring BiPAP Chronic CO2 retention Possible DAYANA Aspiration risk s/p recent PNA Dysphagia , s/p PEG , pulled out, s/p replacement of PEG 11/16 Acute kidney injury on chronic kidney disease, requiring start of HD 10/30 Anemia of chronic kidney disease PAF/flutter- converted to SR Diabetes mellitus HTN PVD with hx of bilateral foot MTA Refusal of care PLAN OF CARE [facility] floor BiPAP at HS and prn , refusing again currently on O2 3 L via NC titrate O2, pulm toilet patient likely has DAYANA. recommend sleep study as OP CXR 11/28 mild vascular congestion and small bilateral pleural effusions, slightly improved when compared to October 31, 2019. No pneumothorax. Cardiomegaly. Calcified aorta. ABG prn rapid COVID NGT, BiPAP prn and HS-continued to refuse developed A flutter/ fib 12/03 seen by cardio already spontaneously converter to SR on a/c with Eliquis, rate controlled with BB ECHO with pEF 55-60% rate control with BB, HR stable on chronic a/c , was on hold for PEG, Eliquis afterwards resumed BP management with CCB and BB, optimize as needed continue statin ethics eval if pt can refuse BiPAP ( patient with dementia, confusion), daughter wants BiPAP and unclear how he refused if was on restraints? in our opinion BiPAP should be on standing order and available in the facility when patient will be transferred need formal polysomnogram to be done as OP bioethics eval appreciated, done 11/25 . per bioethics: pt with diminished capacity and does not understand the consequences of refusing bi-pap, yet it seems inhumane to force him to endure it recommended that he should be discharged to the SNF on nasal canula with instructions not to be sent back to the acute care hospital for refusal to accept bi-pap. bioethics offered to have a family conference to explain the reasoning if the family is willing to speak with us. SHERRIE spoke with daughter and ( through RN hourly sales staff) re further GOC and code status 11/29 daughter and decided on DNR/DNI status , which was relayed to me by SHERRIE 12/02 Dr Pabon spoke with Dr Chang, code status changed on 12/06 to DNR/DNI dc plan to SNF ; SHERRIE discussed with family ( not want [facility]) , ongoing search for the facility completed Rx for PNA on prior admission Venous Duplex BLE 10/25 -> NGT aspir precautions, new BSSE pending TF via GT for now protein supplements HD as per nephro recs monitor volumes, renal paramerts, lytes s/p placement of permanent HD catheter R chest 11/07 s/p removal of temporary HD catheter by surgeon prior HgA1c -6.1 hold oral anti-glycemic monitor HH with goal to keep Hgb above 7 anemia w/up prior noted , heme on board on EPO GI prophayxlis supportive care dc plan in progress, challenging placement case discussed and evaluated by supervising physician Leoncio Galan MD 12/11/19 5067: Subjective Allergies: Coded Allergies: PENICILLINS (Verified Allergy, Unknown, 10/25/19) tolerated Ceftriaxone Uncoded Allergies: PENICILLIN (Allergy, Unknown, 11/23/19) Assessment/Plan Assessment/Plan Patient seen and examined with ELECTION ASSISTANT and I agree with the above formulated assessment and plan. Reema Hanna NP Dec 11, 2019 08:30 Leoncio Galan MD Dec 11, 2019 21:57
[2019-12-11] MEDS: Metoprolol Tartrate 12.5mg TAB GT SCH (09:00)
[2019-12-11] MEDS: Docusate 100mg/10ml Liq NG SCH ×3 (09:51→18:35)
[2019-12-11] MEDS: Amiodarone 200mg tab ORAL SCH (09:52)
[2019-12-11] MEDS: Eliquis 2.5mg tablet ORAL SCH ×2 (09:52→18:35)
--- NOTE | 2019-12-11 10:27 | Cardiology Progress Note ---
Assessment/Plan Status: stable Assessment/Plan Assessment/Plan 1. Atrial flutter. 12-lead EKG is typical atrial flutter. Echo EF 55%. Ruled out for PR protocol. Continue Amiodarone 200 bid, metoprolol 12.5 mg b.i.d. and Eliquis. In SR today again 2. Hypertension, on metoprolol 12.5 mg bid ,amlodipine 5 mg b.i.d., on hem odialysis. 3. Hyperlipidemia, on Lipitor. 4. End-stage renal disease, on hemodialysis. 5. Diabetes on insulin. 6. DNR/DNI status as of December 03, 2019. 7. COPD, off BiPAP. 8. Peripheral vascular disease, status post bilateral transmetatarsal amputation. 9. Confusion, in restraint. Subjective Cardiovascular: Reports: no symptoms Respiratory: Reports: no symptoms Gastrointestinal/Abdominal: Reports: no symptoms Genitourinary: Reports: no symptoms Subjective COVERAGE FOR TOLUIE NO Acute events, awaiting placement, no fever no CP Objective Last 24 Hour Vital Signs Date Time Temp Pulse Resp B/P (MAP) Pulse Ox O2 Delivery O2 Flow Rate FiO2 12/11/19 04:00 97.8 63 19 135/58 (83) 95 12/11/19 00:00 97.6 62 18 154/54 (87) 97 12/10/19 21:24 61 134/46 12/10/19 21:24 61 134/46 12/10/19 21:00 Nasal Cannula 1.0 12/10/19 20:00 97.9 110 20 140/95 (110) 98 12/10/19 19:16 96 Nasal Cannula 2.0 28 12/10/19 16:00 59 12/10/19 16:00 98.0 58 20 130/51 (77) 96 12/10/19 12:00 98.1 58 22 140/52 (81) 96 12/10/19 12:00 59 General Appearance: no apparent distress, alert EENT: PERRL/EOMI, normal ENT inspection, TMs normal Neck: normal alignment, supple, no JVD Rhythm: NSR Cardiovascular: normal rate, regular rhythm Respiratory/Chest: chest wall non-tender, lungs clear Abdomen: non tender, no mass Extremities: normal range of motion, non-tender, normal inspection, no calf tenderness Neurologic: prizer hand II-XII grossly normal, no motor/sensory deficits Intake and Output 12/10/19 12/11/19 19:00 07:00 Intake Total 600 ml Output Total 300 ml 300 ml Balance 300 ml -300 ml Intake Free Water 200 ml Tube Feeding 400 ml Output Urine Total 300 ml 300 ml Laboratory Tests Test 12/10/19 11:34 12/10/19 17:14 POC Whole Blood Glucose 183 MG/DL (74-106) H Pending John Dias MD Dec 11, 2019 10:27
--- NOTE | 2019-12-11 13:58 | Hematology/Onc Progress Note ---
Assessment/Plan Assessment/Plan ASSESSMENT AND RECOMMENDATIONS: # Anemia of chronic disease due to underlying chronic medical issues, multifactorial --> Anemia w/u has been reviewed. --> no evidence of hemolysis is noted, peripheral smear has been reviewed --> hgb goal is >7, transfuse as needed --> currently remains stable, occult blood negative --> hgb 8.4->8.6->8.3->8->8.2->9.2-->9.2->8.9-->8.1-->8.7>9.4-->8.7-->8->7.8->7.5-->7.4- ->7.5-->8.1-->8-->8.1-->9.5->7.9-->7.6-->7.5-->9.9-->8.8 --> 1 unit prbc 12/03 --> some blood loss due to hematuria after inflated reyes pulled 8/6 am --> EPOGEN Started # Thrombocytopenia is likely due to infection --> plt trend 180-->149-->274 --> on abx as needed --> hep and hiv neg #. Leukocytosis with underlying infectionv stress reaction HISTORY --> per id and better --> for infection, ABX ctx/vanc-->off --> wbc 10-->5.9 # Acute kidney injury r/o potential reversible component --> reviewed meds, those that are renally cleared removed --> as per renal recs, appreciated --> cr 3.5-->4.2-->3.4->3.3 --> Hd started and dw renal # Hypertension, essential --> sbp goal is <140, consider anti-htn as needed --> currently started on hyralazine 25mg po q6h prn sbp >140 # CHF - hx of CHf --> diuresis with lasix as needed --> cardiology recs appreciated prior adm #. Bilateral lower extremity amputee, metatarsal several years ago --> stable #. Atrial fibrillation --> as per cards recs #. Dysphagia s/p peg --> peg pulled out and now with gtube 11/25 #. Hyperkalemia --> kayxelate as needed #. Agitation requires restraints #. Dvt ppx scds --> xarelto=> off-->eliquis-->off-->eliquis The time the note was entered does not necessarily correspond to the time the patient was seen. GREATLY APPRECIATE CONSULTATION. Subjective Allergies: Coded Allergies: PENICILLINS (Verified Allergy, Unknown, 10/25/19) tolerated Ceftriaxone Uncoded Allergies: PENICILLIN (Allergy, Unknown, 11/23/19) Subjective 11/23 came back from new snf due to lack of bipap capability, hgb 7.5 11/24 labs reviewed, remains sob, with a hgb 8.1, no bleeding, jag rn, hold off prbc 11/25 labs are noted, for egd and peg in the am, jag rn, on nc 11/27 getting 3l nc overnight, has been refusing bipap unfortunately, hgb stable 11/28 labs noted, with gtube feeds, again this am refusing bipap 11/29 is on 2l nc, with gtube feeds, hgb 9.5, no bleeding 11/30 labs are noted, no bleeding, on gtube feeds, on 2l nc 12/01 meds noted, no bleeding, hgb 7.9 yesterday, on nc 12/02 is on nepro and on 2l, hgb 7.6, c/o itching, have started benadryl q 8h prn 12/04 labs reviewed, coverning for Dr. Chang, no bleeding, meds noted, wants restraints off 12/05 labs are noted, no bleeding, no night sweats, with gtube feeds ongoing 12/06 labs reviewed, no bleeding, meds noted, no major changes, peg+ 12/07 on wrist restraints, gtube was pulled out overnight, no bleedng 12/10 no acute events, nc 2l, bilat wrist restraints, eliquis Objective Objective Current Medications Medications (Trade) Dose Ordered Sig/Cammy Route PRN Reason Start Time Stop Time Status Last Admin Dose Admin Allopurinol (allopurinoL) 300 mg DAILY ORAL 11/26/19 10:30 12/24/19 10:29 12/11/19 09:51 Amiodarone HCl (Cordarone) 200 mg EVERY 12 HOURS ORAL 12/04/19 21:00 03/03/20 20:59 12/11/19 09:52 Amlodipine Besylate (Norvasc) 5 mg Q12HR GT 11/28/19 21:00 12/24/19 10:29 12/10/19 21:24 Apixaban (Eliquis) 2.5 mg BID ORAL 11/26/19 10:30 02/22/20 10:29 12/11/19 09:52 Atorvastatin Calcium (Lipitor) 10 mg BEDTIME ORAL 11/26/19 21:00 02/22/20 20:59 12/10/19 21:24 Chlorhexidine Gluconate (Yi-Hex 2%) 1 applic DAILY@1999 TOPIC 11/26/19 20:00 02/24/20 19:59 12/10/19 21:24 Dextrose (Dextrose 50%) 25 ml Q30M PRN IV Hypoglycemia 12/03/19 10:30 03/02/20 10:29 Dextrose (Dextrose 50%) 50 ml Q30M PRN IV Hypoglycemia 12/03/19 10:30 03/02/20 10:29 Diphenhydramine HCl (Benadryl) 25 mg Q8H PRN NG Itching 12/03/19 09:30 01/02/20 09:29 12/04/19 12:28 Docusate Sodium (Colace) 100 mg THREE TIMES A DAY NG 11/28/19 13:00 12/28/19 12:59 12/11/19 09:51 Epoetin William (Epoetin William(ESRD on dialysis)) 10,000 unit FRI- SUBQ 12/01/19 21:00 02/29/20 20:59 12/10/19 21:25 Insulin Aspart (NovoLOG) Q6HR SUBQ 12/03/19 12:00 03/02/20 11:59 12/11/19 12:26 Lansoprazole (Prevacid) 30 mg DAILY GT 11/28/19 10:45 12/28/19 10:44 12/11/19 09:51 Metoprolol Tartrate (Lopressor) 12.5 mg Q12HR GT 11/29/19 09:00 02/27/20 08:59 12/10/19 21:24 Sennosides (Senokot) 8.6 mg DAILY PRN ORAL Constipation 11/26/19 10:30 12/26/19 10:29 Last 24 Hour Vital Signs Date Time Temp Pulse Resp B/P (MAP) Pulse Ox O2 Delivery O2 Flow Rate FiO2 12/11/19 09:00 Nasal Cannula 1.0 12/11/19 09:00 64 105/47 12/11/19 09:00 64 105/47 12/11/19 08:00 97.8 64 18 105/47 (66) 95 12/11/19 04:00 97.8 63 19 135/58 (83) 95 12/11/19 00:00 97.6 62 18 154/54 (87) 97 12/10/19 21:24 61 134/46 12/10/19 21:24 61 134/46 12/10/19 21:00 Nasal Cannula 1.0 12/10/19 20:00 97.9 110 20 140/95 (110) 98 12/10/19 19:16 96 Nasal Cannula 2.0 28 12/10/19 16:00 59 12/10/19 16:00 98.0 58 20 130/51 (77) 96 12/10/19 12:00 98.1 58 22 140/52 (81) 96 12/10/19 12:00 59 12/10/19 09:10 63 127/84 12/10/19 09:09 63 127/84 12/10/19 08:14 Nasal Cannula 1.0 12/10/19 08:00 97.5 63 22 127/84 (98) 96 12/10/19 08:00 62 12/10/19 07:52 96 Nasal Cannula 2.0 28 12/10/19 04:00 62 12/10/19 04:00 98.1 61 22 132/47 (75) 95 12/10/19 00:00 63 12/10/19 00:00 97.5 61 22 129/45 (73) 99 12/09/19 21:00 Nasal Cannula 1.0 12/09/19 20:54 64 12/09/19 20:54 64 140/51 12/09/19 20:00 97.3 64 22 140/51 (80) 99 12/09/19 20:00 62 12/09/19 19:26 98 Nasal Cannula 2.0 28 12/09/19 16:00 63 12/09/19 16:00 97.1 63 18 134/49 (77) 97 Intake and Output 12/10/19 12/11/19 19:00 07:00 Intake Total 600 ml Output Total 300 ml 300 ml Balance 300 ml -300 ml Intake Free Water 200 ml Tube Feeding 400 ml Output Urine Total 300 ml 300 ml Labs Test 12/08/19 17:33 12/09/19 00:21 12/09/19 05:37 12/09/19 06:18 POC Whole Blood Glucose 147 MG/DL (74-106) 169 MG/DL (74-106) 175 MG/DL (74-106) Test 12/09/19 12:05 12/09/19 17:13 12/10/19 00:46 12/10/19 05:51 POC Whole Blood Glucose 176 MG/DL (74-106) White Blood Count 8.3 K/UL (4.8-10.8) Red Blood Count 3.15 M/UL (4.70-6.10) Hemoglobin 9.0 G/DL (14.2-18.0) Hematocrit 28.3 % (42.0-52.0) Mean Corpuscular Volume 90 FL (80-99) Mean Corpuscular Hemoglobin 28.6 PG (27.0-31.0) Mean Corpuscular Hemoglobin Concent 31.7 G/DL (32.0-36.0) Red Cell Distribution Width 15.3 % (11.6-14.8) Platelet Count 352 K/UL (150-450) Mean Platelet Volume 6.3 FL (6.5-10.1) Neutrophils (%) (Auto) 71.5 % (45.0-75.0) Lymphocytes (%) (Auto) 20.3 % (20.0-45.0) Monocytes (%) (Auto) 5.2 % (1.0-10.0) Eosinophils (%) (Auto) 1.8 % (0.0-3.0) Basophils (%) (Auto) 1.2 % (0.0-2.0) Sodium Level 131 MMOL/L (136-145) Potassium Level 4.5 MMOL/L (3.5-5.1) Chloride Level 97 MMOL/L (98-107) Carbon Dioxide Level 25 MMOL/L (21-32) Anion Gap 9 mmol/L (5-15) Blood Urea Nitrogen 87 mg/dL (7-18) Creatinine 4.2 MG/DL (0.55-1.30) Estimat Glomerular Filtration Rate 13.7 mL/min (>60) Glucose Level 183 MG/DL (74-106) Calcium Level 8.5 MG/DL (8.5-10.1) Phosphorus Level 4.5 MG/DL (2.5-4.9) Magnesium Level 3.1 MG/DL (1.8-2.4) Total Bilirubin 0.4 MG/DL (0.2-1.0) Aspartate Amino Transf (AST/SGOT) 17 U/L (15-37) Alanine Aminotransferase (ALT/SGPT) 12 U/L (12-78) Alkaline Phosphatase 215 U/L (46-116) Total Protein 6.7 G/DL (6.4-8.2) Albumin 2.6 G/DL (3.4-5.0) Globulin 4.1 g/dL Albumin/Globulin Ratio 0.6 (1.0-2.7) Test 12/10/19 06:43 12/10/19 11:34 12/10/19 17:14 POC Whole Blood Glucose 194 MG/DL (74-106) 183 MG/DL (74-106) Height (Feet): 5 Height (Inches): 5.00 Weight (Pounds): 169 Objective GENERAL: Not in acute distress. HEENT: ncat PULMONARY: Decreased breath sounds. ++ bipap v nc+ CHEST: ++permacath right chest CARDIOVASCULAR: Regular rate. No S3 or S4. ABDOMEN: Soft, nontender, nondistended.++reyes in site of old gtube EXTREMITIES: 1+ edema. No cyanosis, swelling, or edema. 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 Melvin Rizzo MD Dec 11, 2019 13:58
--- NOTE | 2019-12-11 14:40 | Nephrology Progress Note ---
Assessment/Plan Problem List: (1) Respiratory distress (2) Diabetes mellitus (3) Hypertension (4) Renal failure (ARF), acute on chronic Assessment Patient's current problem is dyspnea Most likely volume overload versus pneumonitis Other conditions: Renal failure (ARF), acute on chronic h/o Metabolic acidosis h/oElectrolyte imbalance Hyponatremia and hyperkalemia h/oAnemia h/o CHF (congestive heart failure) Plan December 10: Due for dialysis today. No chemistry panel done today. We will continue to monitor renal parameters. Medication list reviewed. December 09: Last dialyzed December 06. Labs reviewed. Will order dialysis tomorrow. Continue current treatment plan. December 08: Last dialysis December 06. No chemistry panel today. Will check lab tomorrow. Hemodialysis as needed. December 07: Dialyzed yesterday. Labs reviewed. Stable from renal standpoint of view. December 06: Due for dialysis today. CBC and medication list reviewed. Continue per consultants. Hemoglobin drifting down. Will check CBC and chemistry panel tomorrow December 05: Labs reviewed. Serum creatinine up to 4.2. Calculated GFR 13. Last dialysis December 02. Will order dialysis tomorrow. December 04: Status quo. Labs reviewed. Continue per current management. December 03: Patient was dialyzed yesterday. Labs reviewed. Continue per current management. December 02: Due for dialysis today. Blood pressure medications on hold. Albumin 25% for BP support during dialysis. Continue to monitor renal parameters. December 01: Labs reviewed. Medication reviewed. Creatinine higher. Hemodialysis for tomorrow. Continue rest. November 30: Patient was last dialyzed November 28. Not in any distress now. Appears to be more verbal today. Labs reviewed. Creatinine 3.8. Hemoglobin lower at 7.9. 1 dose of IV iron ordered. Subcu Epogen ordered. November 29: Dialyzed yesterday. Status quo. Will check chemistry panel tomorrow. Dialysis as needed. Continue per PMD and consultants. November 28: Due for dialysis and ultrafiltration today. Labs and medications reviewed. Blood pressure is stable. November 27: BNP rising. Not much urine output. Will dialyze and ultrafiltrate tomorrow. Labs reviewed. Continue to adjust blood pressure medications. Continue per consultants. November 26: Last dialysis November 24. Status quo. Labs reviewed. Medication list reviewed. Continue to monitor renal parameters. Dialysis as needed. November 25: Patient was dialyzed yesterday. Today is due for insertion of a GT tube. Patient pulled out his previous GT tube. Labs reviewed. Electrolytes abnormalities adjusted. Continue to monitor renal parameters. Patient is off BiPAP and on nasal cannula now. I believe that upon discharge the patient requires 2-3 times a week dialysis and ultrafiltration however upon discharge the patient needs to be followed by a grinder set up operator jig in the facility that he goes to to assess on a regular basis the need and frequency for dialysis. November 24 : Late note entry due to system problem at the [facility] today. Patient due for dialysis and ultrafiltration today. Labs reviewed. Chest x-ray results not available on EMR. Last dialysis November 21. Continue pulmonary toilet. Patient remains on BiPAP. Will check labs tomorrow. Subjective ROS Limited/Unobtainable: Yes Objective Objective Last 24 Hour Vital Signs Date Time Temp Pulse Resp B/P (MAP) Pulse Ox O2 Delivery O2 Flow Rate FiO2 12/11/19 09:00 Nasal Cannula 1.0 12/11/19 09:00 64 105/47 12/11/19 09:00 64 105/47 12/11/19 08:00 97.8 64 18 105/47 (66) 95 12/11/19 04:00 97.8 63 19 135/58 (83) 95 12/11/19 00:00 97.6 62 18 154/54 (87) 97 12/10/19 21:24 61 134/46 12/10/19 21:24 61 134/46 12/10/19 21:00 Nasal Cannula 1.0 12/10/19 20:00 97.9 110 20 140/95 (110) 98 12/10/19 19:16 96 Nasal Cannula 2.0 28 12/10/19 16:00 59 12/10/19 16:00 98.0 58 20 130/51 (77) 96 Intake and Output 12/10/19 12/11/19 19:00 07:00 Intake Total 600 ml Output Total 300 ml 300 ml Balance 300 ml -300 ml Intake Free Water 200 ml Tube Feeding 400 ml Output Urine Total 300 ml 300 ml No chemistry panel done today laboratory Tests 12/10/19 17:14: POC Whole Blood Glucose [Pending] Height (Feet): 5 Height (Inches): 5.00 Weight (Pounds): 169 General Appearance: no apparent distress, confused Cardiovascular: normal rate Respiratory/Chest: decreased breath sounds Abdomen: soft, distended Objective No change Naveed Vanegas MD Dec 11, 2019 14:40
[2019-12-12] MEDS: Amiodarone 200mg tab ORAL SCH ×3 (00:04→20:06)
[2019-12-12] MEDS: Metoprolol Tartrate 12.5mg TAB GT SCH ×3 (00:04→20:06)
[2019-12-12] MEDS: Dyna-Hex 2% Top Sol 2oz TOPIC SCH ×2 (00:13→20:06)
[2019-12-12 04:00] VITALS: BP 126/47
[2019-12-12] MEDS: NovoLOG Insulin Flexpen SUBQ SCH ×4 (05:01→17:10)
--- NOTE | 2019-12-12 07:25 | Pulmonology Progress Note ---
Reema Hanna CHROME POLISHER 12/12/19 0725: Subjective ROS Limited/Unobtainable: Yes Allergies: Coded Allergies: PENICILLINS (Verified Allergy, Unknown, 10/25/19) tolerated Ceftriaxone Uncoded Allergies: PENICILLIN (Allergy, Unknown, 11/23/19) All Systems: reviewed and negative except above Subjective now on MS floor condition the same on O2 2 L via NC, pulse ox stable off BiPAP and continued to decline it no signs of resp distress code status changed to DNR/DNI on 12/06 by attending due to family wishes dc plan in process challenging placement Objective Last 24 Hour Vital Signs Date Time Temp Pulse Resp B/P (MAP) Pulse Ox O2 Delivery O2 Flow Rate FiO2 12/12/19 04:00 96.9 75 20 126/47 (73) 96 12/12/19 00:04 60 107/53 12/11/19 23:44 98.1 60 20 107/53 (71) 98 12/11/19 21:00 Nasal Cannula 1.0 12/11/19 21:00 60 107/53 12/11/19 20:14 98 Nasal Cannula 1.0 24 12/11/19 20:00 98.1 63 20 140/50 (80) 98 12/11/19 16:00 98.1 73 18 131/61 (84) 98 12/11/19 12:00 97.9 67 18 140/53 (82) 95 12/11/19 09:00 Nasal Cannula 1.0 12/11/19 09:00 64 105/47 12/11/19 09:00 64 105/47 12/11/19 08:00 97.8 64 18 105/47 (66) 95 12/11/19 07:45 97 Nasal Cannula 1.0 24 Intake and Output 12/11/19 12/12/19 19:00 07:00 Intake Total 540 ml 575 ml Output Total 300 ml Balance 540 ml 275 ml Intake Free Water 100 ml 135 ml Tube Feeding 440 ml 440 ml Output Urine Total 300 ml # Bowel Movements 1 Objective General Appearance: alert , confused, Martiniquais speaking Lines, tubes and drains: peripheral HEENT: normocephalic, atraumatic, anicteric, O2 via NC Neck: supple Respiratory/Chest: lungs clear, no respiratory distress Cardiovascular/Chest: normal rate, SR with 1 st degree AV block Abdomen: non tender, soft, feeding tube - G tube Extremities: BL foot TMA Neurologic: abnormal gait, alert, confused, responsive Musculoskeletal: atrophy - BLE Current Medications Medications (Trade) Dose Ordered Sig/Cammy Route PRN Reason Start Time Stop Time Status Last Admin Dose Admin Allopurinol (allopurinoL) 300 mg DAILY ORAL 11/26/19 10:30 12/24/19 10:29 12/11/19 09:51 Amiodarone HCl (Cordarone) 200 mg EVERY 12 HOURS ORAL 12/04/19 21:00 03/03/20 20:59 12/11/19 09:52 Amlodipine Besylate (Norvasc) 5 mg Q12HR GT 11/28/19 21:00 12/24/19 10:29 12/10/19 21:24 Apixaban (Eliquis) 2.5 mg BID ORAL 11/26/19 10:30 02/22/20 10:29 12/11/19 18:35 Atorvastatin Calcium (Lipitor) 10 mg BEDTIME ORAL 11/26/19 21:00 02/22/20 20:59 12/12/19 00:09 Chlorhexidine Gluconate (Yi-Hex 2%) 1 applic DAILY@1999 TOPIC 11/26/19 20:00 02/24/20 19:59 12/12/19 00:13 Dextrose (Dextrose 50%) 25 ml Q30M PRN IV Hypoglycemia 12/03/19 10:30 03/02/20 10:29 Dextrose (Dextrose 50%) 50 ml Q30M PRN IV Hypoglycemia 12/03/19 10:30 03/02/20 10:29 Diphenhydramine HCl (Benadryl) 25 mg Q8H PRN NG Itching 12/03/19 09:30 01/02/20 09:29 12/04/19 12:28 Docusate Sodium (Colace) 100 mg THREE TIMES A DAY NG 11/28/19 13:00 12/28/19 12:59 12/11/19 18:35 Epoetin William (Epoetin William(ESRD on dialysis)) 10,000 unit FRI-WED-FRI SUBQ 12/01/19 21:00 02/29/20 20:59 12/10/19 21:25 Insulin Aspart (NovoLOG) Q6HR SUBQ 12/03/19 12:00 03/02/20 11:59 12/12/19 05:01 Lansoprazole (Prevacid) 30 mg DAILY GT 11/28/19 10:45 12/28/19 10:44 12/11/19 09:51 Metoprolol Tartrate (Lopressor) 12.5 mg Q12HR GT 11/29/19 09:00 02/27/20 08:59 12/10/19 21:24 Sennosides (Senokot) 8.6 mg DAILY PRN ORAL Constipation 11/26/19 10:30 12/26/19 10:29 Assessment/Plan Assessment/Plan ASSESSMENT Prior acute hypoxemic hypercapnic respiratory failure requiring BiPAP Chronic CO2 retention Possible DAYANA Aspiration risk s/p recent PNA Dysphagia , s/p PEG , pulled out, s/p replacement of PEG 11/16 Acute kidney injury on chronic kidney disease, requiring start of HD 10/30 Anemia of chronic kidney disease PAF/flutter- converted to SR Diabetes mellitus HTN PVD with hx of bilateral foot MTA Refusal of care PLAN OF CARE MS floor BiPAP at HS and prn , refusing again currently on O2 3 L via NC titrate O2, pulm toilet patient likely has DAYANA. recommend sleep study as OP CXR 11/28 mild vascular congestion and small bilateral pleural effusions, slightly improved when compared to October 31, 2019. No pneumothorax. Cardiomegaly. Calcified aorta. ABG prn rapid COVID NGT, BiPAP prn and HS-continued to refuse developed A flutter/ fib 12/03 seen by cardio already spontaneously converter to SR on a/c with Eliquis, rate controlled with BB ECHO with pEF 55-60% rate control with BB, HR stable on chronic a/c , was on hold for PEG, Eliquis afterwards resumed BP management with CCB and BB, optimize as needed continue statin ethics eval if pt can refuse BiPAP ( patient with dementia, confusion), daughter wants BiPAP and unclear how he refused if was on restraints? in our opinion BiPAP should be on standing order and available in the facility when patient will be transferred need formal polysomnogram to be done as OP bioethics eval appreciated, done 11/25 . per bioethics: pt with diminished capacity and does not understand the consequences of refusing bi-pap, yet it seems inhumane to force him to endure it recommended that he should be discharged to the SNF on nasal canula with instructions not to be sent back to the acute care hospital for refusal to accept bi-pap. bioethics offered to have a family conference to explain the reasoning if the family is willing to speak with us. SHERRIE spoke with daughter and ( through RN attorney) re further GOC and code status 11/29 daughter and decided on DNR/DNI status , which was relayed to me by SHERRIE 12/02 Dr Pabon spoke with Dr Chang, code status changed on 12/06 to DNR/DNI dc plan to SNF ; SHERRIE discussed with family ( not want [facility]) , ongoing search for the facility completed Rx for PNA on prior admission Venous Duplex BLE 10/25 -> NGT aspir precautions, new BSSE pending TF via GT for now protein supplements HD as per nephro recs monitor volumes, renal paramerts, lytes s/p placement of permanent HD catheter R chest 11/07 s/p removal of temporary HD catheter by surgeon prior HgA1c -6.1 hold oral anti-glycemic monitor HH with goal to keep Hgb above 7 anemia w/up prior noted , heme on board on EPO GI prophayxlis supportive care dc plan in progress, challenging placement case discussed and evaluated by supervising physician Leoncio Galan MD 12/12/19 1350: Subjective Allergies: Coded Allergies: PENICILLINS (Verified Allergy, Unknown, 10/25/19) tolerated Ceftriaxone Uncoded Allergies: PENICILLIN (Allergy, Unknown, 11/23/19) Assessment/Plan Assessment/Plan Patient seen and examined with CHROME POLISHER and I agree with the above formulated assessment and plan. Reema Hanna NP Dec 12, 2019 07:25 Leoncio Galan MD Dec 12, 2019 13:50
[2019-12-12 07:30] LABS: BASOPHILS % (AUTO) 2.3 % (0.0-2.0); EOSINOPHILS % (AUTO) 1.2 % (0.0-3.0); HEMOGLOBIN 9.9 G/DL (14.2-18.0); LYMPHOCYTES % (AUTO) 15.4 % (20.0-45.0); MEAN CORPUSCULAR VOLUME 91 FL (80-99); MONOCYTES % (AUTO) 4.5 % (1.0-10.0); NEUTROPHILS % (AUTO) 76.7 % (45.0-75.0); PLATELET COUNT 367 K/UL (150-450); RED BLOOD COUNT 3.53 M/UL (4.70-6.10); RED CELL DISTRIBUTION WIDTH 17.1 % (11.6-14.8); WHITE BLOOD COUNT 8.8 K/UL (4.8-10.8)
[2019-12-12 08:00] VITALS: BP 119/47
[2019-12-12 08:12] LABS: ALBUMIN 2.8 G/DL (3.4-5.0); ALBUMIN/GLOBULIN RATIO 0.6 (1.0-2.7); BILIRUBIN,TOTAL 0.4 MG/DL (0.2-1.0); CALCIUM 9.3 MG/DL (8.5-10.1); CREATININE 2.8 MG/DL (0.55-1.30); PHOSPHORUS 2.4 MG/DL (2.5-4.9); POTASSIUM 4.6 MMOL/L (3.5-5.1)
[2019-12-12] MEDS: Docusate 100mg/10ml Liq NG SCH ×3 (08:49→17:24)
[2019-12-12] MEDS: Eliquis 2.5mg tablet ORAL SCH ×2 (08:50→17:09)
--- NOTE | 2019-12-12 09:06 | General Progress Note ---
Subjective ROS Limited/Unobtainable: No Allergies: Coded Allergies: PENICILLINS (Verified Allergy, Unknown, 10/25/19) tolerated Ceftriaxone Uncoded Allergies: PENICILLIN (Allergy, Unknown, 11/23/19) Objective Last 24 Hour Vital Signs Date Time Temp Pulse Resp B/P (MAP) Pulse Ox O2 Delivery O2 Flow Rate FiO2 12/12/19 08:50 69 119/47 12/12/19 08:49 69 119/47 12/12/19 08:00 97.9 69 19 119/47 (71) 96 12/12/19 07:44 97 Nasal Cannula 1.0 24 12/12/19 04:00 96.9 75 20 126/47 (73) 96 12/12/19 00:04 60 107/53 12/11/19 23:44 98.1 60 20 107/53 (71) 98 12/11/19 21:00 Nasal Cannula 1.0 12/11/19 21:00 60 107/53 12/11/19 20:14 98 Nasal Cannula 1.0 24 12/11/19 20:00 98.1 63 20 140/50 (80) 98 12/11/19 16:00 98.1 73 18 131/61 (84) 98 12/11/19 12:00 97.9 67 18 140/53 (82) 95 Intake and Output 12/11/19 12/12/19 19:00 07:00 Intake Total 540 ml 575 ml Output Total 300 ml Balance 540 ml 275 ml Intake Free Water 100 ml 135 ml Tube Feeding 440 ml 440 ml Output Urine Total 300 ml # Bowel Movements 1 Laboratory Tests 12/12/19 07:15: White Blood Count 8.8, Red Blood Count 3.53L, Hemoglobin 9.9L, Hematocrit 32.0L, Mean Corpuscular Volume 91, Mean Corpuscular Hemoglobin 28.0, Mean Corpuscular Hemoglobin Concent 30.9L, Red Cell Distribution Width 17.1H, Platelet Count 367, Mean Platelet Volume 6.2L, Neutrophils (%) (Auto) 76.7H, Lymphocytes (%) (Auto) 15.4L, Monocytes (%) (Auto) 4.5, Eosinophils (%) (Auto) 1.2, Basophils (%) (Auto) 2.3H, Sodium Level 136, Potassium Level 4.6, Chloride Level 100, Carbon Dioxide Level 30, Anion Gap 6, Blood Urea Nitrogen 51H, Creatinine 2.8H, Estimat Glomerular Filtration Rate 21.9, Glucose Level 166H, Calcium Level 9.3, Phosphorus Level 2.4L, Magnesium Level 2.9H, Total Bilirubin 0.4, Aspartate Amino Transf (AST/SGOT) 18, Alanine Aminotransferase (ALT/SGPT) 15, Alkaline Phosphatase 257H, C-Reactive Protein, Quantitative 3.1H, Pro-B-Type Natriuretic Peptide [id number], Total Protein 7.4, Albumin 2.8L, Globulin 4.6, Albumin/Globulin Ratio 0.6L Height (Feet): 5 Height (Inches): 5.00 Weight (Pounds): 169 General Appearance: no apparent distress EENT: normal ENT inspection Neck: supple Cardiovascular: normal rate Respiratory/Chest: decreased breath sounds Abdomen: hypoactive bowel sounds Extremities: non-tender Assessment/Plan Problem List: (1) Hypertension ICD Codes: I10 - Essential (primary) hypertension SNOMED: 47723017 (2) Diabetes mellitus ICD Codes: E11.9 - Type 2 diabetes mellitus without complications SNOMED: 79499844 (3) Cholelithiasis ICD Codes: K80.20 - Calculus of gallbladder without cholecystitis without obstruction SNOMED: 714722545 Status: stable Assessment/Plan: dysphagia s/p GT placement patient pulled the GT again 20 Fr GT was placed at the bedside yesterday GTF fu H&H prn blood transfusion Lawrence Humphreys MD Dec 12, 2019 09:06
--- NOTE | 2019-12-12 11:35 | Hematology/Onc Progress Note ---
Assessment/Plan Assessment/Plan ASSESSMENT AND RECOMMENDATIONS: # Anemia of chronic disease due to underlying chronic medical issues, multifactorial --> Anemia w/u has been reviewed. --> no evidence of hemolysis is noted, peripheral smear has been reviewed --> hgb goal is >7, transfuse as needed --> currently remains stable, occult blood negative --> hgb 8.4->8.6->8.3->8->8.2->9.2-->9.2->8.9-->8.1-->8.7>9.4-->8.7-->8->7.8->7.5-->7.4- ->7.5-->8.1-->8-->8.1-->9.5->7.9-->7.6-->7.5-->9.9-->8.8 --> 1 unit prbc 12/03 --> some blood loss due to hematuria after inflated reyes pulled 8/6 am --> EPOGEN Started # Thrombocytopenia is likely due to infection --> plt trend 180-->149-->274 --> on abx as needed --> hep and hiv neg #. Leukocytosis with underlying infectionv stress reaction HISTORY --> per id and better --> for infection, ABX ctx/vanc-->off --> wbc 10-->5.9 # Acute kidney injury r/o potential reversible component --> reviewed meds, those that are renally cleared removed --> as per renal recs, appreciated --> cr 3.5-->4.2-->3.4->3.3 --> Hd started and dw renal # Hypertension, essential --> sbp goal is <140, consider anti-htn as needed --> currently started on hyralazine 25mg po q6h prn sbp >140 # CHF - hx of CHf --> diuresis with lasix as needed --> cardiology recs appreciated prior adm #. Bilateral lower extremity amputee, metatarsal several years ago --> stable #. Atrial fibrillation --> as per cards recs #. Dysphagia s/p peg --> peg pulled out and now with gtube 11/25 #. Hyperkalemia --> kayxelate as needed #. Agitation requires restraints #. Dvt ppx scds --> xarelto=> off-->eliquis-->off-->eliquis The time the note was entered does not necessarily correspond to the time the patient was seen. GREATLY APPRECIATE CONSULTATION. Subjective Constitutional: Denies: no symptoms, chills, fever, malaise, weakness, other HEENT: Denies: no symptoms, eye pain, blurred vision, tearing, double vision, ear pain, ear discharge, nose pain, nose congestion, throat pain, throat swelling, mouth pain, mouth swelling, other Cardiovascular: Denies: no symptoms, chest pain, edema, irregular heart rate, lightheadedness, palpitations, syncope, other Respiratory: Denies: no symptoms, cough, shortness of breath, SOB with excertion, SOB at rest, sputum, wheezing, other Gastrointestinal/Abdominal: Denies: no symptoms, abdomen distended, abdominal pain, black stools, tarry stools, blood in stool, constipated, diarrhea, difficulty swallowing, nausea, poor appetite, poor fluid intake, rectal bleeding, vomiting, other Genitourinary: Denies: no symptoms, burning, discharge, frequency, flank pain, hematuria, incontinence, pain, urgency, other Neurologic/Psychiatric: Denies: no symptoms, anxiety, depressed, emotional problems, headache, numbness, paresthesia, pre-existing deficit, seizure, tingling, tremors, weakness, other Endocrine: Denies: no symptoms, excessive sweating, flushing, intolerance to cold, intolerance to heat, increased hunger, increased thirst, increased urine, unexplained weight gain, unexplained weight loss, other Hematologic/Lymphatic: Denies: no symptoms, anemia, easy bleeding, easy bruising, adenopathy, other Allergies: Coded Allergies: PENICILLINS (Verified Allergy, Unknown, 10/25/19) tolerated Ceftriaxone Uncoded Allergies: PENICILLIN (Allergy, Unknown, 11/23/19) Subjective 11/23 came back from [facility] due to lack of bipap capability, hgb 7.5 11/24 labs reviewed, remains sob, with a hgb 8.1, no bleeding, jag rn, hold off prbc 11/25 labs are noted, for egd and peg in the am, jag rn, on nc 11/27 getting 3l nc overnight, has been refusing bipap unfortunately, hgb stable 11/28 labs noted, with gtube feeds, again this am refusing bipap 11/29 is on 2l nc, with gtube feeds, hgb 9.5, no bleeding 11/30 labs are noted, no bleeding, on gtube feeds, on 2l nc 12/01 meds noted, no bleeding, hgb 7.9 yesterday, on nc 12/02 is on nepro and on 2l, hgb 7.6, c/o itching, have started benadryl q 8h prn 12/04 labs reviewed, coverning for Dr. Chang, no bleeding, meds noted, wants restraints off 12/05 labs are noted, no bleeding, no night sweats, with gtube feeds ongoing 12/06 labs reviewed, no bleeding, meds noted, no major changes, peg+ 12/07 on wrist restraints, gtube was pulled out overnight, no bleedng 12/10 no acute events, nc 2l, bilat wrist restraints, eliquis 12/11 labs are noted, labs reviewed, is on 2l, agitated again Objective Objective Current Medications Medications (Trade) Dose Ordered Sig/Cammy Route PRN Reason Start Time Stop Time Status Last Admin Dose Admin Allopurinol (allopurinoL) 300 mg DAILY ORAL 11/26/19 10:30 12/24/19 10:29 12/12/19 08:49 Amiodarone HCl (Cordarone) 200 mg EVERY 12 HOURS ORAL 12/04/19 21:00 03/03/20 20:59 12/12/19 08:49 Amlodipine Besylate (Norvasc) 5 mg Q12HR GT 11/28/19 21:00 12/24/19 10:29 12/12/19 08:50 Apixaban (Eliquis) 2.5 mg BID ORAL 11/26/19 10:30 02/22/20 10:29 12/12/19 08:50 Atorvastatin Calcium (Lipitor) 10 mg BEDTIME ORAL 11/26/19 21:00 02/22/20 20:59 12/12/19 00:09 Chlorhexidine Gluconate (Yi-Hex 2%) 1 applic DAILY@1999 TOPIC 11/26/19 20:00 02/24/20 19:59 12/12/19 00:13 Dextrose (Dextrose 50%) 25 ml Q30M PRN IV Hypoglycemia 12/03/19 10:30 03/02/20 10:29 Dextrose (Dextrose 50%) 50 ml Q30M PRN IV Hypoglycemia 12/03/19 10:30 03/02/20 10:29 Diphenhydramine HCl (Benadryl) 25 mg Q8H PRN NG Itching 12/03/19 09:30 01/02/20 09:29 12/04/19 12:28 Docusate Sodium (Colace) 100 mg THREE TIMES A DAY NG 11/28/19 13:00 12/28/19 12:59 12/12/19 08:49 Epoetin William (Epoetin William(ESRD on dialysis)) 10,000 unit SUBQ 12/01/19 21:00 02/29/20 20:59 12/10/19 21:25 Insulin Aspart (NovoLOG) Q6HR SUBQ 12/03/19 12:00 03/02/20 11:59 12/12/19 05:01 Lansoprazole (Prevacid) 30 mg DAILY GT 11/28/19 10:45 12/28/19 10:44 12/12/19 08:50 Metoprolol Tartrate (Lopressor) 12.5 mg Q12HR GT 11/29/19 09:00 02/27/20 08:59 12/12/19 08:49 Sennosides (Senokot) 8.6 mg DAILY PRN ORAL Constipation 11/26/19 10:30 12/26/19 10:29 Last 24 Hour Vital Signs Date Time Temp Pulse Resp B/P (MAP) Pulse Ox O2 Delivery O2 Flow Rate FiO2 12/12/19 09:00 Nasal Cannula 1.0 12/12/19 08:50 69 119/47 12/12/19 08:49 69 119/47 12/12/19 08:00 97.9 69 19 119/47 (71) 96 12/12/19 07:44 97 Nasal Cannula 1.0 24 12/12/19 04:00 96.9 75 20 126/47 (73) 96 12/12/19 00:04 60 107/53 12/11/19 23:44 98.1 60 20 107/53 (71) 98 12/11/19 21:00 Nasal Cannula 1.0 12/11/19 21:00 60 107/53 12/11/19 20:14 98 Nasal Cannula 1.0 24 12/11/19 20:00 98.1 63 20 140/50 (80) 98 12/11/19 16:00 98.1 73 18 131/61 (84) 98 12/11/19 12:00 97.9 67 18 140/53 (82) 95 12/11/19 09:00 Nasal Cannula 1.0 12/11/19 09:00 64 105/47 12/11/19 09:00 64 105/47 12/11/19 08:00 97.8 64 18 105/47 (66) 95 12/11/19 07:45 97 Nasal Cannula 1.0 24 12/11/19 04:00 97.8 63 19 135/58 (83) 95 12/11/19 00:00 97.6 62 18 154/54 (87) 97 12/10/19 21:24 61 134/46 12/10/19 21:24 61 134/46 12/10/19 21:00 Nasal Cannula 1.0 12/10/19 20:00 97.9 110 20 140/95 (110) 98 12/10/19 19:16 96 Nasal Cannula 2.0 28 12/10/19 16:00 59 12/10/19 16:00 98.0 58 20 130/51 (77) 96 12/10/19 12:00 98.1 58 22 140/52 (81) 96 12/10/19 12:00 59 Intake and Output 12/11/19 12/12/19 19:00 07:00 Intake Total 540 ml 575 ml Output Total 300 ml Balance 540 ml 275 ml Intake Free Water 100 ml 135 ml Tube Feeding 440 ml 440 ml Output Urine Total 300 ml # Bowel Movements 1 Labs Test 12/09/19 12:05 12/09/19 17:13 12/10/19 00:46 12/10/19 05:51 POC Whole Blood Glucose 176 MG/DL (74-106) White Blood Count 8.3 K/UL (4.8-10.8) Red Blood Count 3.15 M/UL (4.70-6.10) Hemoglobin 9.0 G/DL (14.2-18.0) Hematocrit 28.3 % (42.0-52.0) Mean Corpuscular Volume 90 FL (80-99) Mean Corpuscular Hemoglobin 28.6 PG (27.0-31.0) Mean Corpuscular Hemoglobin Concent 31.7 G/DL (32.0-36.0) Red Cell Distribution Width 15.3 % (11.6-14.8) Platelet Count 352 K/UL (150-450) Mean Platelet Volume 6.3 FL (6.5-10.1) Neutrophils (%) (Auto) 71.5 % (45.0-75.0) Lymphocytes (%) (Auto) 20.3 % (20.0-45.0) Monocytes (%) (Auto) 5.2 % (1.0-10.0) Eosinophils (%) (Auto) 1.8 % (0.0-3.0) Basophils (%) (Auto) 1.2 % (0.0-2.0) Sodium Level 131 MMOL/L (136-145) Potassium Level 4.5 MMOL/L (3.5-5.1) Chloride Level 97 MMOL/L (98-107) Carbon Dioxide Level 25 MMOL/L (21-32) Anion Gap 9 mmol/L (5-15) Blood Urea Nitrogen 87 mg/dL (7-18) Creatinine 4.2 MG/DL (0.55-1.30) Estimat Glomerular Filtration Rate 13.7 mL/min (>60) Glucose Level 183 MG/DL (74-106) Calcium Level 8.5 MG/DL (8.5-10.1) Phosphorus Level 4.5 MG/DL (2.5-4.9) Magnesium Level 3.1 MG/DL (1.8-2.4) Total Bilirubin 0.4 MG/DL (0.2-1.0) Aspartate Amino Transf (AST/SGOT) 17 U/L (15-37) Alanine Aminotransferase (ALT/SGPT) 12 U/L (12-78) Alkaline Phosphatase 215 U/L (46-116) Total Protein 6.7 G/DL (6.4-8.2) Albumin 2.6 G/DL (3.4-5.0) Globulin 4.1 g/dL Albumin/Globulin Ratio 0.6 (1.0-2.7) Test 12/10/19 06:43 12/10/19 11:34 12/10/19 17:14 12/12/19 07:15 POC Whole Blood Glucose 194 MG/DL (74-106) 183 MG/DL (74-106) White Blood Count 8.8 K/UL (4.8-10.8) Red Blood Count 3.53 M/UL (4.70-6.10) Hemoglobin 9.9 G/DL (14.2-18.0) Hematocrit 32.0 % (42.0-52.0) Mean Corpuscular Volume 91 FL (80-99) Mean Corpuscular Hemoglobin 28.0 PG (27.0-31.0) Mean Corpuscular Hemoglobin Concent 30.9 G/DL (32.0-36.0) Red Cell Distribution Width 17.1 % (11.6-14.8) Platelet Count 367 K/UL (150-450) Mean Platelet Volume 6.2 FL (6.5-10.1) Neutrophils (%) (Auto) 76.7 % (45.0-75.0) Lymphocytes (%) (Auto) 15.4 % (20.0-45.0) Monocytes (%) (Auto) 4.5 % (1.0-10.0) Eosinophils (%) (Auto) 1.2 % (0.0-3.0) Basophils (%) (Auto) 2.3 % (0.0-2.0) Sodium Level 136 MMOL/L (136-145) Potassium Level 4.6 MMOL/L (3.5-5.1) Chloride Level 100 MMOL/L (98-107) Carbon Dioxide Level 30 MMOL/L (21-32) Anion Gap 6 mmol/L (5-15) Blood Urea Nitrogen 51 mg/dL (7-18) Creatinine 2.8 MG/DL (0.55-1.30) Estimat Glomerular Filtration Rate 21.9 mL/min (>60) Glucose Level 166 MG/DL (74-106) Calcium Level 9.3 MG/DL (8.5-10.1) Phosphorus Level 2.4 MG/DL (2.5-4.9) Magnesium Level 2.9 MG/DL (1.8-2.4) Total Bilirubin 0.4 MG/DL (0.2-1.0) Aspartate Amino Transf (AST/SGOT) 18 U/L (15-37) Alanine Aminotransferase (ALT/SGPT) 15 U/L (12-78) Alkaline Phosphatase 257 U/L (46-116) C-Reactive Protein, Quantitative 3.1 mg/dL (0.00-0.90) Pro-B-Type Natriuretic Peptide 59164 pg/mL (0-125) Total Protein 7.4 G/DL (6.4-8.2) Albumin 2.8 G/DL (3.4-5.0) Globulin 4.6 g/dL Albumin/Globulin Ratio 0.6 (1.0-2.7) Height (Feet): 5 Height (Inches): 5.00 Weight (Pounds): 169 Objective GENERAL: Not in acute distress. HEENT: ncat PULMONARY: Decreased breath sounds. ++ bipap v nc+ CHEST: ++permacath right chest CARDIOVASCULAR: Regular rate. No S3 or S4. ABDOMEN: Soft, nontender, nondistended.++reyes in site of old gtube EXTREMITIES: 1+ edema. No cyanosis, swelling, or edema. 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 Melvin Rizzo MD Dec 12, 2019 11:35
[2019-12-12 12:00] VITALS: BP 108/45
--- NOTE | 2019-12-12 12:43 | Nephrology Progress Note ---
Assessment/Plan Problem List: (1) Respiratory distress (2) Diabetes mellitus (3) Hypertension (4) Renal failure (ARF), acute on chronic Assessment Patient's current problem is dyspnea Most likely volume overload versus pneumonitis Other conditions: Renal failure (ARF), acute on chronic h/o Metabolic acidosis h/oElectrolyte imbalance Hyponatremia and hyperkalemia h/oAnemia h/o CHF (congestive heart failure) Plan December 11: Dialyzed yesterday. Status quo. Continue to monitor renal parameters and dialysis as needed. Continue per consultants. December 10: Due for dialysis today. No chemistry panel done today. We will continue to monitor renal parameters. Medication list reviewed. December 09: Last dialyzed December 06. Labs reviewed. Will order dialysis tomorrow. Continue current treatment plan. December 08: Last dialysis December 06. No chemistry panel today. Will check lab tomorrow. Hemodialysis as needed. December 07: Dialyzed yesterday. Labs reviewed. Stable from renal standpoint of view. December 06: Due for dialysis today. CBC and medication list reviewed. Continue per consultants. Hemoglobin drifting down. Will check CBC and chemistry panel tomorrow December 05: Labs reviewed. Serum creatinine up to 4.2. Calculated GFR 13. Last dialysis December 02. Will order dialysis tomorrow. December 04: Status quo. Labs reviewed. Continue per current management. December 03: Patient was dialyzed yesterday. Labs reviewed. Continue per current management. December 02: Due for dialysis today. Blood pressure medications on hold. Albumin 25% for BP support during dialysis. Continue to monitor renal parameters. December 01: Labs reviewed. Medication reviewed. Creatinine higher. Hemodialysis for tomorrow. Continue rest. November 30: Patient was last dialyzed November 28. Not in any distress now. Appears to be more verbal today. Labs reviewed. Creatinine 3.8. Hemoglobin lower at 7.9. 1 dose of IV iron ordered. Subcu Epogen ordered. November 29: Dialyzed yesterday. Status quo. Will check chemistry panel tomorrow. Dialysis as needed. Continue per PMD and consultants. November 28: Due for dialysis and ultrafiltration today. Labs and medications r eviewed. Blood pressure is stable. November 27: BNP rising. Not much urine output. Will dialyze and ultrafiltrate tomorrow. Labs reviewed. Continue to adjust blood pressure medications. Continue per consultants. November 26: Last dialysis November 24. Status quo. Labs reviewed. Medication list reviewed. Continue to monitor renal parameters. Dialysis as needed. November 25: Patient was dialyzed yesterday. Today is due for insertion of a GT tube. Patient pulled out his previous GT tube. Labs reviewed. Electrolytes abnormalities adjusted. Continue to monitor renal parameters. Patient is off BiPAP and on nasal cannula now. I believe that upon discharge the patient requires 2-3 times a week dialysis and ultrafiltration however upon discharge the patient needs to be followed by a coordinator skill training program in the facility that he goes to to assess on a regular basis the need and frequency for dialysis. November 24 : Late note entry due to system problem at the [facility] [place] today. Patient due for dialysis and ultrafiltration today. Labs reviewed. Chest x-ray results not available on EMR. Last dialysis November 21. Continue pulmonary toilet. Patient remains on BiPAP. Will check labs tomorrow. Subjective ROS Limited/Unobtainable: No Constitutional: Reports: malaise Objective Objective Last 24 Hour Vital Signs Date Time Temp Pulse Resp B/P (MAP) Pulse Ox O2 Delivery O2 Flow Rate FiO2 12/12/19 09:00 Nasal Cannula 1.0 12/12/19 08:50 69 119/47 12/12/19 08:49 69 119/47 12/12/19 08:00 97.9 69 19 119/47 (71) 96 12/12/19 07:44 97 Nasal Cannula 1.0 24 12/12/19 04:00 96.9 75 20 126/47 (73) 96 12/12/19 00:04 60 107/53 12/11/19 23:44 98.1 60 20 107/53 (71) 98 12/11/19 21:00 Nasal Cannula 1.0 12/11/19 21:00 60 107/53 12/11/19 20:14 98 Nasal Cannula 1.0 24 12/11/19 20:00 98.1 63 20 140/50 (80) 98 12/11/19 16:00 98.1 73 18 131/61 (84) 98 Intake and Output 12/11/19 12/12/19 19:00 07:00 Intake Total 540 ml 575 ml Output Total 300 ml Balance 540 ml 275 ml Intake Free Water 100 ml 135 ml Tube Feeding 440 ml 440 ml Output Urine Total 300 ml # Bowel Movements 1 Laboratory Tests 12/12/19 07:15: White Blood Count 8.8, Red Blood Count 3.53L, Hemoglobin 9.9L, Hematocrit 32.0L, Mean Corpuscular Volume 91, Mean Corpuscular Hemoglobin 28.0, Mean Corpuscular Hemoglobin Concent 30.9L, Red Cell Distribution Width 17.1H, Platelet Count 367, Mean Platelet Volume 6.2L, Neutrophils (%) (Auto) 76.7H, Lymphocytes (%) (Auto) 15.4L, Monocytes (%) (Auto) 4.5, Eosinophils (%) (Auto) 1.2, Basophils (%) (Auto) 2.3H, Sodium Level 136, Potassium Level 4.6, Chloride Level 100, Carbon Dioxide Level 30, Anion Gap 6, Blood Urea Nitrogen 51H, Creatinine 2.8H, Estimat Glomerular Filtration Rate 21.9, Glucose Level 166H, Calcium Level 9.3, Phosphorus Level 2.4L, Magnesium Level 2.9H, Total Bilirubin 0.4, Aspartate Amino Transf (AST/SGOT) 18, Alanine Aminotransferase (ALT/SGPT) 15, Alkaline Phosphatase 257H, C-Reactive Protein, Quantitative 3.1H, Pro-B-Type Natriuretic Peptide 95047C, Total Protein 7.4, Albumin 2.8L, Globulin 4.6, Albumin/Globulin Ratio 0.6L Height (Feet): 5 Height (Inches): 5.00 Weight (Pounds): 169 General Appearance: no apparent distress Cardiovascular: normal rate Respiratory/Chest: decreased breath sounds Abdomen: soft Objective No change Naveed Vanegas MD Dec 12, 2019 12:43
[2019-12-12] MEDS: DiphenhydrAMINE 25mg/10ml Elixir NG PRN (14:43)
[2019-12-12 16:00] VITALS: BP 116/47
[2019-12-12] MEDS: Morphine Sulfate 10mg/5ml Oral Soln ud ORAL PRN (17:51)
[2019-12-12 20:00] VITALS: BP 132/45
[2019-12-13] VITALS: BP 125/42
[2019-12-13 04:00] VITALS: BP 132/62
[2019-12-13] MEDS: NovoLOG Insulin Flexpen SUBQ SCH ×4 (05:22→18:03)
[2019-12-13 08:00] VITALS: BP 130/68
[2019-12-13 08:02] LABS: BASOPHILS % (AUTO) 0.8 % (0.0-2.0); EOSINOPHILS % (AUTO) 1.4 % (0.0-3.0); HEMATOCRIT 29.5 % (42.0-52.0); HEMOGLOBIN 9.1 G/DL (14.2-18.0); MEAN CORPUSCULAR VOLUME 92 FL (80-99); MONOCYTES % (AUTO) 4.5 % (1.0-10.0); NEUTROPHILS % (AUTO) 68.4 % (45.0-75.0); PLATELET COUNT 355 K/UL (150-450); RED BLOOD COUNT 3.22 M/UL (4.70-6.10); RED CELL DISTRIBUTION WIDTH 16.4 % (11.6-14.8); WHITE BLOOD COUNT 9.3 K/UL (4.8-10.8)
[2019-12-13 08:34] LABS: ALBUMIN 2.5 G/DL (3.4-5.0); ALBUMIN/GLOBULIN RATIO 0.6 (1.0-2.7); BILIRUBIN,TOTAL 0.4 MG/DL (0.2-1.0); CREATININE 3.8 MG/DL (0.55-1.30); PHOSPHORUS 2.7 MG/DL (2.5-4.9); POTASSIUM 4.8 MMOL/L (3.5-5.1)
[2019-12-13] MEDS: Docusate 100mg/10ml Liq NG SCH ×3 (09:10→17:55)
[2019-12-13] MEDS: Eliquis 2.5mg tablet ORAL SCH ×2 (09:11→17:56)
[2019-12-13] MEDS: Metoprolol Tartrate 12.5mg TAB GT SCH ×2 (09:11→20:09)
[2019-12-13] MEDS: Amiodarone 200mg tab ORAL SCH ×2 (09:11→20:08)
--- NOTE | 2019-12-13 09:43 | Hematology/Onc Progress Note ---
Assessment/Plan Assessment/Plan ASSESSMENT AND RECOMMENDATIONS: # Anemia of chronic disease due to underlying chronic medical issues, multifactorial --> Anemia w/u has been reviewed. --> no evidence of hemolysis is noted, peripheral smear has been reviewed --> hgb goal is >7, transfuse as needed --> currently remains stable, occult blood negative --> hgb 8.4->8.6->8.3->8->8.2->9.2-->9.2->8.9-->8.1-->8.7>9.4-->8.7-->8->7.8->7.5-->7.4- ->7.5-->8.1-->8-->8.1-->9.5->7.9-->7.6-->7.5-->9.9-->8.8-->9.1 --> 1 unit prbc 12/03 --> some blood loss due to hematuria after inflated reyes pulled 8/6 am --> EPOGEN Started # Thrombocytopenia is likely due to infection --> plt trend 180-->149-->274 --> on abx as needed --> hep and hiv neg #. Leukocytosis with underlying infectionv stress reaction HISTORY --> per id and better --> for infection, ABX ctx/vanc-->off --> wbc 10-->5.9 # Acute kidney injury r/o potential reversible component --> reviewed meds, those that are renally cleared removed --> as per renal recs, appreciated --> cr 3.5-->4.2-->3.4->3.3 --> Hd started and dw renal # Hypertension, essential --> sbp goal is <140, consider anti-htn as needed --> currently started on hyralazine 25mg po q6h prn sbp >140 # CHF - hx of CHf --> diuresis with lasix as needed --> cardiology recs appreciated prior adm #. Bilateral lower extremity amputee, metatarsal several years ago --> stable #. Atrial fibrillation --> as per cards recs #. Dysphagia s/p peg --> peg pulled out and now with gtube 11/25 #. Hyperkalemia --> kayxelate as needed #. Agitation requires restraints #. Dvt ppx scds --> xarelto=> off-->eliquis-->off-->eliquis The time the note was entered does not necessarily correspond to the time the patient was seen. GREATLY APPRECIATE CONSULTATION. Subjective HEENT: Denies: no symptoms, eye pain, blurred vision, tearing, double vision, ear pain, ear discharge, nose pain, nose congestion, throat pain, throat swelling, mouth pain, mouth swelling, other Cardiovascular: Denies: no symptoms, chest pain, edema, irregular heart rate, lightheadedness, palpitations, syncope, other Respiratory: Denies: no symptoms, cough, shortness of breath, SOB with excertion, SOB at rest, sputum, wheezing, other Genitourinary: Denies: no symptoms, burning, discharge, frequency, flank pain, hematuria, incontinence, pain, urgency, other Neurologic/Psychiatric: Denies: no symptoms, anxiety, depressed, emotional problems, headache, numbness, paresthesia, pre-existing deficit, seizure, tingling, tremors, weakness, other Endocrine: Denies: no symptoms, excessive sweating, flushing, intolerance to cold, intolerance to heat, increased hunger, increased thirst, increased urine, unexplained weight gain, unexplained weight loss, other Allergies: Coded Allergies: PENICILLINS (Verified Allergy, Unknown, 10/25/19) tolerated Ceftriaxone Uncoded Allergies: PENICILLIN (Allergy, Unknown, 11/23/19) Subjective 11/23 came back from [facility] due to lack of bipap capability, hgb 7.5 11/24 labs reviewed, remains sob, with a hgb 8.1, no bleeding, jag salas, hold off prbc 11/25 labs are noted, for egd and peg in the am, jag rn, on nc 11/27 getting 3l nc overnight, has been refusing bipap unfortunately, hgb stable 11/28 labs noted, with gtube feeds, again this am refusing bipap 11/29 is on 2l nc, with gtube feeds, hgb 9.5, no bleeding 11/30 labs are noted, no bleeding, on gtube feeds, on 2l nc 12/01 meds noted, no bleeding, hgb 7.9 yesterday, on nc 12/02 is on nepro and on 2l, hgb 7.6, c/o itching, have started benadryl q 8h prn 12/04 labs reviewed, coverning for Dr. Chang, no bleeding, meds noted, wants restraints off 12/05 labs are noted, no bleeding, no night sweats, with gtube feeds ongoing 12/06 labs reviewed, no bleeding, meds noted, no major changes, peg+ 12/07 on wrist restraints, gtube was pulled out overnight, no bleedng 12/10 no acute events, nc 2l, bilat wrist restraints, eliquis 12/11 labs are noted, labs reviewed, is on 2l, agitated again 12/12 is awake, alert, no bleeding, meds reviewed, no night sweats, hgb 9.1 Objective Objective Current Medications Medications (Trade) Dose Ordered Sig/Cammy Route PRN Reason Start Time Stop Time Status Last Admin Dose Admin Allopurinol (allopurinoL) 300 mg DAILY ORAL 11/26/19 10:30 12/24/19 10:29 12/13/19 09:11 Amiodarone HCl (Cordarone) 200 mg EVERY 12 HOURS ORAL 12/04/19 21:00 03/03/20 20:59 12/13/19 09:11 Amlodipine Besylate (Norvasc) 5 mg Q12HR GT 11/28/19 21:00 12/24/19 10:29 12/13/19 09:11 Apixaban (Eliquis) 2.5 mg BID ORAL 11/26/19 10:30 02/22/20 10:29 12/13/19 09:11 Atorvastatin Calcium (Lipitor) 10 mg BEDTIME ORAL 11/26/19 21:00 02/22/20 20:59 12/12/19 20:06 Chlorhexidine Gluconate (Yi-Hex 2%) 1 applic DAILY@1999 TOPIC 11/26/19 20:00 02/24/20 19:59 12/12/19 20:06 Dextrose (Dextrose 50%) 25 ml Q30M PRN IV Hypoglycemia 12/03/19 10:30 03/02/20 10:29 Dextrose (Dextrose 50%) 50 ml Q30M PRN IV Hypoglycemia 12/03/19 10:30 03/02/20 10:29 Diphenhydramine HCl (Benadryl) 25 mg Q8H PRN NG Itching 12/03/19 09:30 01/02/20 09:29 12/12/19 14:43 Docusate Sodium (Colace) 100 mg THREE TIMES A DAY NG 11/28/19 13:00 12/28/19 12:59 12/13/19 09:10 Epoetin William (Epoetin William(ESRD on dialysis)) 10,000 unit SUBQ 12/01/19 21:00 02/29/20 20:59 12/10/19 21:25 Insulin Aspart (NovoLOG) Q6HR SUBQ 12/03/19 12:00 03/02/20 11:59 12/12/19 17:10 Lansoprazole (Prevacid) 30 mg DAILY GT 11/28/19 10:45 12/28/19 10:44 12/13/19 09:11 Metoprolol Tartrate (Lopressor) 12.5 mg Q12HR GT 11/29/19 09:00 02/27/20 08:59 12/13/19 09:11 Morphine Sulfate (Morphine 10mg/ 5ml Oral Soln) 1 mg EVERY 8 HOURS PRN ORAL For Pain 12/12/19 16:30 12/19/19 16:29 12/12/19 17:51 Sennosides (Senokot) 8.6 mg DAILY PRN ORAL Constipation 11/26/19 10:30 12/26/19 10:29 Last 24 Hour Vital Signs Date Time Temp Pulse Resp B/P (MAP) Pulse Ox O2 Delivery O2 Flow Rate FiO2 12/13/19 09:11 68 130/68 12/13/19 09:11 68 130/68 12/13/19 08:00 97.6 68 18 130/68 (88) 96 12/13/19 04:00 97.3 64 18 132/62 (85) 99 12/13/19 00:00 97.9 64 18 125/42 (69) 95 12/12/19 21:40 Nasal Cannula 1.0 12/12/19 20:17 97 Nasal Cannula 1.0 24 12/12/19 20:06 77 116/47 12/12/19 20:06 77 116/47 12/12/19 20:00 97.3 74 18 132/45 (74) 95 12/12/19 16:00 97.2 77 18 116/47 (70) 95 12/12/19 12:00 97.9 101 18 108/45 (66) 94 12/12/19 09:00 Nasal Cannula 1.0 12/12/19 08:50 69 119/47 12/12/19 08:49 69 119/47 12/12/19 08:00 97.9 69 19 119/47 (71) 96 12/12/19 07:44 97 Nasal Cannula 1.0 24 12/12/19 04:00 96.9 75 20 126/47 (73) 96 12/12/19 00:04 60 107/53 12/11/19 23:44 98.1 60 20 107/53 (71) 98 12/11/19 21:00 Nasal Cannula 1.0 12/11/19 21:00 60 107/53 12/11/19 20:14 98 Nasal Cannula 1.0 24 12/11/19 20:00 98.1 63 20 140/50 (80) 98 12/11/19 16:00 98.1 73 18 131/61 (84) 98 12/11/19 12:00 97.9 67 18 140/53 (82) 95 Intake and Output 12/12/19 12/13/19 19:00 07:00 Intake Total 630 ml 520 ml Output Total 450 ml Balance 630 ml 70 ml Intake Free Water 150 ml 120 ml Tube Feeding 480 ml 400 ml Output Urine Total 450 ml Labs Test 12/10/19 11:34 12/10/19 17:14 12/12/19 07:15 12/13/19 05:41 POC Whole Blood Glucose 183 MG/DL (74-106) White Blood Count 8.8 K/UL (4.8-10.8) 9.3 K/UL (4.8-10.8) Red Blood Count 3.53 M/UL (4.70-6.10) 3.22 M/UL (4.70-6.10) Hemoglobin 9.9 G/DL (14.2-18.0) 9.1 G/DL (14.2-18.0) Hematocrit 32.0 % (42.0-52.0) 29.5 % (42.0-52.0) Mean Corpuscular Volume 91 FL (80-99) 92 FL (80-99) Mean Corpuscular Hemoglobin 28.0 PG (27.0-31.0) 28.3 PG (27.0-31.0) Mean Corpuscular Hemoglobin Concent 30.9 G/DL (32.0-36.0) 30.8 G/DL (32.0-36.0) Red Cell Distribution Width 17.1 % (11.6-14.8) 16.4 % (11.6-14.8) Platelet Count 367 K/UL (150-450) 355 K/UL (150-450) Mean Platelet Volume 6.2 FL (6.5-10.1) 6.1 FL (6.5-10.1) Neutrophils (%) (Auto) 76.7 % (45.0-75.0) 68.4 % (45.0-75.0) Lymphocytes (%) (Auto) 15.4 % (20.0-45.0) 25.0 % (20.0-45.0) Monocytes (%) (Auto) 4.5 % (1.0-10.0) 4.5 % (1.0-10.0) Eosinophils (%) (Auto) 1.2 % (0.0-3.0) 1.4 % (0.0-3.0) Basophils (%) (Auto) 2.3 % (0.0-2.0) 0.8 % (0.0-2.0) Sodium Level 136 MMOL/L (136-145) 134 MMOL/L (136-145) Potassium Level 4.6 MMOL/L (3.5-5.1) 4.8 MMOL/L (3.5-5.1) Chloride Level 100 MMOL/L (98-107) 99 MMOL/L (98-107) Carbon Dioxide Level 30 MMOL/L (21-32) 27 MMOL/L (21-32) Anion Gap 6 mmol/L (5-15) 8 mmol/L (5-15) Blood Urea Nitrogen 51 mg/dL (7-18) 71 mg/dL (7-18) Creatinine 2.8 MG/DL (0.55-1.30) 3.8 MG/DL (0.55-1.30) Estimat Glomerular Filtration Rate 21.9 mL/min (>60) 15.4 mL/min (>60) Glucose Level 166 MG/DL (74-106) 140 MG/DL (74-106) Calcium Level 9.3 MG/DL (8.5-10.1) 9.0 MG/DL (8.5-10.1) Phosphorus Level 2.4 MG/DL (2.5-4.9) 2.7 MG/DL (2.5-4.9) Magnesium Level 2.9 MG/DL (1.8-2.4) Total Bilirubin 0.4 MG/DL (0.2-1.0) 0.4 MG/DL (0.2-1.0) Aspartate Amino Transf (AST/SGOT) 18 U/L (15-37) 20 U/L (15-37) Alanine Aminotransferase (ALT/SGPT) 15 U/L (12-78) 14 U/L (12-78) Alkaline Phosphatase 257 U/L (46-116) 163 U/L (46-116) C-Reactive Protein, Quantitative 3.1 mg/dL (0.00-0.90) Pro-B-Type Natriuretic Peptide 85864 pg/mL (0-125) Total Protein 7.4 G/DL (6.4-8.2) 6.7 G/DL (6.4-8.2) Albumin 2.8 G/DL (3.4-5.0) 2.5 G/DL (3.4-5.0) Globulin 4.6 g/dL 4.2 g/dL Albumin/Globulin Ratio 0.6 (1.0-2.7) 0.6 (1.0-2.7) Height (Feet): 5 Height (Inches): 5.00 Weight (Pounds): 169 Objective GENERAL: Not in acute distress. HEENT: ncat PULMONARY: Decreased breath sounds. ++ bipap v nc+ CHEST: ++permacath right chest CARDIOVASCULAR: Regular rate. No S3 or S4. ABDOMEN: Soft, nontender, nondistended.++reyes in site of old gtube EXTREMITIES: 1+ edema. No cyanosis, swelling, or edema. 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 Melvin Rizzo MD Dec 13, 2019 09:43
--- NOTE | 2019-12-13 10:23 | General Progress Note ---
Subjective ROS Limited/Unobtainable: No Allergies: Coded Allergies: PENICILLINS (Verified Allergy, Unknown, 10/25/19) tolerated Ceftriaxone Uncoded Allergies: PENICILLIN (Allergy, Unknown, 11/23/19) Objective Last 24 Hour Vital Signs Date Time Temp Pulse Resp B/P (MAP) Pulse Ox O2 Delivery O2 Flow Rate FiO2 12/13/19 09:11 68 130/68 12/13/19 09:11 68 130/68 12/13/19 08:00 97.6 68 18 130/68 (88) 96 12/13/19 04:00 97.3 64 18 132/62 (85) 99 12/13/19 00:00 97.9 64 18 125/42 (69) 95 12/12/19 21:40 Nasal Cannula 1.0 12/12/19 20:17 97 Nasal Cannula 1.0 24 12/12/19 20:06 77 116/47 12/12/19 20:06 77 116/47 12/12/19 20:00 97.3 74 18 132/45 (74) 95 12/12/19 16:00 97.2 77 18 116/47 (70) 95 12/12/19 12:00 97.9 101 18 108/45 (66) 94 Intake and Output 12/12/19 12/13/19 19:00 07:00 Intake Total 630 ml 520 ml Output Total 450 ml Balance 630 ml 70 ml Intake Free Water 150 ml 120 ml Tube Feeding 480 ml 400 ml Output Urine Total 450 ml Laboratory Tests 12/13/19 05:41: White Blood Count 9.3, Red Blood Count 3.22L, Hemoglobin 9.1L, Hematocrit 29.5L, Mean Corpuscular Volume 92, Mean Corpuscular Hemoglobin 28.3, Mean Corpuscular Hemoglobin Concent 30.8L, Red Cell Distribution Width 16.4H, Platelet Count 355, Mean Platelet Volume 6.1L, Neutrophils (%) (Auto) 68.4, Lymphocytes (%) (Auto) 25.0, Monocytes (%) (Auto) 4.5, Eosinophils (%) (Auto) 1.4, Basophils (%) (Auto) 0.8, Sodium Level 134L, Potassium Level 4.8, Chloride Level 99, Carbon Dioxide Level 27, Anion Gap 8, Blood Urea Nitrogen 71H, Creatinine 3.8H, Estimat Glomerular Filtration Rate 15.4, Glucose Level 140H, Calcium Level 9.0, Phosphorus Level 2.7, Total Bilirubin 0.4, Aspartate Amino Transf (AST/SGOT) 20, Alanine Aminotransferase (ALT/SGPT) 14, Alkaline Phosphatase 163H, Total Protein 6.7, Albumin 2.5L, Globulin 4.2, Albumin/Globulin Ratio 0.6L Height (Feet): 5 Height (Inches): 5.00 Weight (Pounds): 169 General Appearance: no apparent distress EENT: normal ENT inspection Neck: supple Cardiovascular: normal rate Respiratory/Chest: decreased breath sounds Abdomen: normal bowel sounds, non tender, soft Extremities: non-tender Assessment/Plan Problem List: (1) Hypertension ICD Codes: I10 - Essential (primary) hypertension SNOMED: 77716103 (2) Diabetes mellitus ICD Codes: E11.9 - Type 2 diabetes mellitus without complications SNOMED: 15442826 (3) Cholelithiasis ICD Codes: K80.20 - Calculus of gallbladder without cholecystitis without obstruction SNOMED: 889605174 Status: stable Assessment/Plan: dysphagia s/p GT placement GTF monitor for residuals fu H&H prn blood transfusion Lawrence Humphreys MD Dec 13, 2019 10:23
--- NOTE | 2019-12-13 10:40 | Pulmonology Progress Note ---
Reema Hanna [employer] 12/13/19 1040: Subjective ROS Limited/Unobtainable: No Allergies: Coded Allergies: PENICILLINS (Verified Allergy, Unknown, 10/25/19) tolerated Ceftriaxone Uncoded Allergies: PENICILLIN (Allergy, Unknown, 11/23/19) All Systems: reviewed and negative except above Subjective now on [place] floor condition the same on O2 2 L via NC, pulse ox stable off BiPAP and continued to decline it no signs of resp distress code status changed to DNR/DNI on 12/06 by attending due to family wishes this am I found him off O2, he actually asked me to place O2 via NC back, more awake and alert, but insisted on refusing BiPAP prior dc plan in process challenging placement Objective Last 24 Hour Vital Signs Date Time Temp Pulse Resp B/P (MAP) Pulse Ox O2 Delivery O2 Flow Rate FiO2 12/13/19 09:11 68 130/68 12/13/19 09:11 68 130/68 12/13/19 08:00 97.6 68 18 130/68 (88) 96 12/13/19 04:00 97.3 64 18 132/62 (85) 99 12/13/19 00:00 97.9 64 18 125/42 (69) 95 12/12/19 21:40 Nasal Cannula 1.0 12/12/19 20:17 97 Nasal Cannula 1.0 24 12/12/19 20:06 77 116/47 12/12/19 20:06 77 116/47 12/12/19 20:00 97.3 74 18 132/45 (74) 95 12/12/19 16:00 97.2 77 18 116/47 (70) 95 12/12/19 12:00 97.9 101 18 108/45 (66) 94 Intake and Output 12/12/19 12/13/19 19:00 07:00 Intake Total 630 ml 520 ml Output Total 450 ml Balance 630 ml 70 ml Intake Free Water 150 ml 120 ml Tube Feeding 480 ml 400 ml Output Urine Total 450 ml Objective General Appearance: alert , confused, Tajik speaking Lines, tubes and drains: peripheral HEENT: normocephalic, atraumatic, anicteric, O2 via NC Neck: supple Respiratory/Chest: lungs clear, no respiratory distress Cardiovascular/Chest: normal rate, Abdomen: non tender, soft, feeding tube - G tube Extremities: BL foot TMA Neurologic: abnormal gait, alert, confused, responsive Musculoskeletal: atrophy - BLE Laboratory Tests 12/13/19 05:41: White Blood Count 9.3, Red Blood Count 3.22L, Hemoglobin 9.1L, Hematocrit 29.5L, Mean Corpuscular Volume 92, Mean Corpuscular Hemoglobin 28.3, Mean Corpuscular Hemoglobin Concent 30.8L, Red Cell Distribution Width 16.4H, Platelet Count 355, Mean Platelet Volume 6.1L, Neutrophils (%) (Auto) 68.4, Lymphocytes (%) (Auto) 25.0, Monocytes (%) (Auto) 4.5, Eosinophils (%) (Auto) 1.4, Basophils (%) (Auto) 0.8, Sodium Level 134L, Potassium Level 4.8, Chloride Level 99, Carbon Dioxide Level 27, Anion Gap 8, Blood Urea Nitrogen 71H, Creatinine 3.8H, Estimat Glomerular Filtration Rate 15.4, Glucose Level 140H, Calcium Level 9.0, Phospho marcella Level 2.7, Total Bilirubin 0.4, Aspartate Amino Transf (AST/SGOT) 20, Alanine Aminotransferase (ALT/SGPT) 14, Alkaline Phosphatase 163H, Total Protein 6.7, Albumin 2.5L, Globulin 4.2, Albumin/Globulin Ratio 0.6L Current Medications Medications (Trade) Dose Ordered Sig/Cammy Route PRN Reason Start Time Stop Time Status Last Admin Dose Admin Allopurinol (allopurinoL) 300 mg DAILY ORAL 11/26/19 10:30 12/24/19 10:29 12/13/19 09:11 Amiodarone HCl (Cordarone) 200 mg EVERY 12 HOURS ORAL 12/04/19 21:00 03/03/20 20:59 12/13/19 09:11 Amlodipine Besylate (Norvasc) 5 mg Q12HR GT 11/28/19 21:00 12/24/19 10:29 12/13/19 09:11 Apixaban (Eliquis) 2.5 mg BID ORAL 11/26/19 10:30 02/22/20 10:29 12/13/19 09:11 Atorvastatin Calcium (Lipitor) 10 mg BEDTIME ORAL 11/26/19 21:00 02/22/20 20:59 12/12/19 20:06 Chlorhexidine Gluconate (Yi-Hex 2%) 1 applic DAILY@1999 TOPIC 11/26/19 20:00 02/24/20 19:59 12/12/19 20:06 Dextrose (Dextrose 50%) 25 ml Q30M PRN IV Hypoglycemia 12/03/19 10:30 03/02/20 10:29 Dextrose (Dextrose 50%) 50 ml Q30M PRN IV Hypoglycemia 12/03/19 10:30 03/02/20 10:29 Diphenhydramine HCl (Benadryl) 25 mg Q8H PRN NG Itching 12/03/19 09:30 01/02/20 09:29 12/12/19 14:43 Docusate Sodium (Colace) 100 mg THREE TIMES A DAY NG 11/28/19 13:00 12/28/19 12:59 12/13/19 09:10 Epoetin William (Epoetin William(ESRD on dialysis)) 10,000 unit FRI-FRI-FRI SUBQ 12/01/19 21:00 02/29/20 20:59 12/10/19 21:25 Insulin Aspart (NovoLOG) Q6HR SUBQ 12/03/19 12:00 03/02/20 11:59 12/12/19 17:10 Lansoprazole (Prevacid) 30 mg DAILY GT 11/28/19 10:45 12/28/19 10:44 12/13/19 09:11 Metoprolol Tartrate (Lopressor) 12.5 mg Q12HR GT 11/29/19 09:00 02/27/20 08:59 12/13/19 09:11 Morphine Sulfate (Morphine 10mg/ 5ml Oral Soln) 1 mg EVERY 8 HOURS PRN ORAL For Pain 12/12/19 16:30 12/19/19 16:29 12/12/19 17:51 Sennosides (Senokot) 8.6 mg DAILY PRN ORAL Constipation 11/26/19 10:30 12/26/19 10:29 Assessment/Plan Assessment/Plan ASSESSMENT Prior acute hypoxemic hypercapnic respiratory failure requiring BiPAP Chronic CO2 retention Possible DAYANA Aspiration risk s/p recent PNA Dysphagia , s/p PEG , pulled out, s/p replacement of PEG 11/16 Acute kidney injury on chronic kidney disease, requiring start of HD 10/30 Anemia of chronic kidney disease PAF/flutter- converted to SR Diabetes mellitus HTN PVD with hx of bilateral foot MTA Refusal of care PLAN OF CARE [facility] floor BiPAP at HS and prn , refusing again currently on O2 3 L via NC titrate O2, pulm toilet patient likely has DAYANA. recommend sleep study as OP CXR 11/28 mild vascular congestion and small bilateral pleural effusions, slight ly improved when compared to October 31, 2019. No pneumothorax. Cardiomegaly. Calcified aorta. ABG prn rapid COVID NGT, BiPAP prn and HS-continued to refuse developed A flutter/ fib 12/03 seen by cardio already spontaneously converter to SR on a/c with Eliquis, rate controlled with BB ECHO with pEF 55-60% rate control with BB, HR stable on chronic a/c , was on hold for PEG, Eliquis afterwards resumed BP management with CCB and BB, optimize as needed continue statin ethics eval if pt can refuse BiPAP ( patient with dementia, confusion), daughter wants BiPAP and unclear how he refused if was on restraints? in our opinion BiPAP should be on standing order and available in the facility when patient will be transferred need formal polysomnogram to be done as OP bioethics eval appreciated, done 11/25 . per bioethics: pt with diminished capacity and does not understand the consequences of refusing bi-pap, yet it seems inhumane to force him to endure it recommended that he should be discharged to the SNF on nasal canula with instructions not to be sent back to the acute care hospital for refusal to accept bi-pap. bioethics offered to have a family conference to explain the reasoning if the family is willing to speak with us. SHERRIE spoke with daughter and ( through RN analytical consultant) re further GOC and code status 11/29 daughter and decided on DNR/DNI status , which was relayed to me by SHERRIE 12/02 Dr Pabon spoke with Dr Chang, code status changed on 12/06 to DNR/DNI dc plan to SNF ; SHERRIE discussed with family ( not want [facility]) , ongoing search for the facility completed Rx for PNA on prior admission Venous Duplex BLE 10/25 -> NGT aspir precautions, new BSSE pending TF via GT for now protein supplements HD as per nephro recs monitor volumes, renal paramerts, lytes s/p placement of permanent HD catheter R chest 11/07 s/p removal of temporary HD catheter by surgeon prior HgA1c -6.1 hold oral anti-glycemic monitor HH with goal to keep Hgb above 7 anemia w/up prior noted , heme on board on EPO GI prophayxlis supportive care dc plan in progress, challenging placement case discussed and evaluated by supervising physician Jonathon Pabon MD 12/13/19 1358: Subjective Allergies: Coded Allergies: PENICILLINS (Verified Allergy, Unknown, 10/25/19) tolerated Ceftriaxone Uncoded Allergies: PENICILLIN (Allergy, Unknown, 11/23/19) Assessment/Plan Assessment/Plan Patient seen and examined with [employer]. Agree with above A&P as it reflects our joint deliberations. Reema Hanna NP Dec 13, 2019 10:40 Jonathon Pabon MD Dec 13, 2019 13:58
--- NOTE | 2019-12-13 10:41 | Cardiology Progress Note ---
Assessment/Plan Status: stable Assessment/Plan Assessment/Plan 1. Atrial flutter. 12-lead EKG is typical atrial flutter. Echo EF 55%. Ruled out for IA protocol. Continue Amiodarone 200 bid, metoprolol 12.5 mg b.i.d. and Eliquis. In SR today again 2. Hypertension, on metoprolol 12.5 mg bid ,amlodipine 5 mg b.i.d., on hem odialysis. 3. Hyperlipidemia, on Lipitor. 4. End-stage renal disease, on hemodialysis. 5. Diabetes on insulin. 6. DNR/DNI status as of December 03, 2019. 7. COPD, off BiPAP. 8. Peripheral vascular disease, status post bilateral transmetatarsal amputation. 9. Confusion, in restraint. Subjective Cardiovascular: Reports: no symptoms Respiratory: Reports: no symptoms Gastrointestinal/Abdominal: Reports: no symptoms Genitourinary: Reports: no symptoms Subjective COVERAGE FOR TOLUIE NO Acute events, awaiting placement, no fever no CP Objective Last 24 Hour Vital Signs Date Time Temp Pulse Resp B/P (MAP) Pulse Ox O2 Delivery O2 Flow Rate FiO2 12/13/19 09:11 68 130/68 12/13/19 09:11 68 130/68 12/13/19 08:00 97.6 68 18 130/68 (88) 96 12/13/19 04:00 97.3 64 18 132/62 (85) 99 12/13/19 00:00 97.9 64 18 125/42 (69) 95 12/12/19 21:40 Nasal Cannula 1.0 12/12/19 20:17 97 Nasal Cannula 1.0 24 12/12/19 20:06 77 116/47 12/12/19 20:06 77 116/47 12/12/19 20:00 97.3 74 18 132/45 (74) 95 12/12/19 16:00 97.2 77 18 116/47 (70) 95 12/12/19 12:00 97.9 101 18 108/45 (66) 94 General Appearance: no apparent distress, alert EENT: PERRL/EOMI, normal ENT inspection, TMs normal Neck: non-tender, normal alignment, supple Rhythm: NSR Cardiovascular: normal peripheral pulses, normal rate, regular rhythm Respiratory/Chest: chest wall non-tender, lungs clear, normal breath sounds Abdomen: normal bowel sounds, non tender, soft, no organomegaly Extremities: normal range of motion, non-tender Neurologic: brake adjuster II-XII grossly normal, no motor/sensory deficits Intake and Output 12/12/19 12/13/19 19:00 07:00 Intake Total 630 ml 520 ml Output Total 450 ml Balance 630 ml 70 ml Intake Free Water 150 ml 120 ml Tube Feeding 480 ml 400 ml Output Urine Total 450 ml Laboratory Tests Test 12/13/19 05:41 White Blood Count 9.3 K/UL (4.8-10.8) Red Blood Count 3.22 M/UL (4.70-6.10) L Hemoglobin 9.1 G/DL (14.2-18.0) L Hematocrit 29.5 % (42.0-52.0) L Mean Corpuscular Volume 92 FL (80-99) Mean Corpuscular Hemoglobin 28.3 PG (27.0-31.0) Mean Corpuscular Hemoglobin Concent 30.8 G/DL (32.0-36.0) L Red Cell Distribution Width 16.4 % (11.6-14.8) H Platelet Count 355 K/UL (150-450) Mean Platelet Volume 6.1 FL (6.5-10.1) L Neutrophils (%) (Auto) 68.4 % (45.0-75.0) Lymphocytes (%) (Auto) 25.0 % (20.0-45.0) Monocytes (%) (Auto) 4.5 % (1.0-10.0) Eosinophils (%) (Auto) 1.4 % (0.0-3.0) Basophils (%) (Auto) 0.8 % (0.0-2.0) Sodium Level 134 MMOL/L (136-145) L Potassium Level 4.8 MMOL/L (3.5-5.1) Chloride Level 99 MMOL/L (98-107) Carbon Dioxide Level 27 MMOL/L (21-32) Anion Gap 8 mmol/L (5-15) Blood Urea Nitrogen 71 mg/dL (7-18) H Creatinine 3.8 MG/DL (0.55-1.30) H Estimat Glomerular Filtration Rate 15.4 mL/min (>60) Glucose Level 140 MG/DL (74-106) H Calcium Level 9.0 MG/DL (8.5-10.1) Phosphorus Level 2.7 MG/DL (2.5-4.9) Total Bilirubin 0.4 MG/DL (0.2-1.0) Aspartate Amino Transf (AST/SGOT) 20 U/L (15-37) Alanine Aminotransferase (ALT/SGPT) 14 U/L (12-78) Alkaline Phosphatase 163 U/L (46-116) H Total Protein 6.7 G/DL (6.4-8.2) Albumin 2.5 G/DL (3.4-5.0) L Globulin 4.2 g/dL Albumin/Globulin Ratio 0.6 (1.0-2.7) L John Dias MD Dec 13, 2019 10:41
[2019-12-13 12:00] VITALS: BP 136/72
--- NOTE | 2019-12-13 13:01 | Nephrology Progress Note ---
Assessment/Plan Problem List: (1) Respiratory distress (2) Diabetes mellitus (3) Hypertension (4) Renal failure (ARF), acute on chronic Assessment Patient's current problem is dyspnea Most likely volume overload versus pneumonitis Other conditions: Renal failure (ARF), acute on chronic h/o Metabolic acidosis h/oElectrolyte imbalance Hyponatremia and hyperkalemia h/oAnemia h/o CHF (congestive heart failure) Plan December 12: Last dialysis December 10. Labs reviewed. Medication list reviewed. Continue per current management. Check lab tomorrow, will arrange for dialysis as needed. December 11: Dialyzed yesterday. Status quo. Continue to monitor renal parameters and dialysis as needed. Continue per consultants. December 10: Due for dialysis today. No chemistry panel done today. We will continue to monitor renal parameters. Medication list reviewed. December 09: Last dialyzed December 06. Labs reviewed. Will order dialysis tomorrow. Continue current treatment plan. December 08: Last dialysis December 06. No chemistry panel today. Will check lab tomorrow. Hemodialysis as needed. December 07: Dialyzed yesterday. Labs reviewed. Stable from renal standpoint of view. December 06: Due for dialysis today. CBC and medication list reviewed. Continue per consultants. Hemoglobin drifting down. Will check CBC and chemistry panel tomorrow December 05: Labs reviewed. Serum creatinine up to 4.2. Calculated GFR 13. Last dialysis December 02. Will order dialysis tomorrow. December 04: Status quo. Labs reviewed. Continue per current management. December 03: Patient was dialyzed yesterday. Labs reviewed. Continue per current management. December 02: Due for dialysis today. Blood pressure medications on hold. Albumin 25% for BP support during dialysis. Continue to monitor renal paramete rs. December 01: Labs reviewed. Medication reviewed. Creatinine higher. Hemodialysis for tomorrow. Continue rest. November 30: Patient was last dialyzed November 28. Not in any distress now. Appears to be more verbal today. Labs reviewed. Creatinine 3.8. Hemoglobin lower at 7.9. 1 dose of IV iron ordered. Subcu Epogen ordered. November 29: Dialyzed yesterday. Status quo. Will check chemistry panel tomorrow. Dialysis as needed. Continue per PMD and consultants. November 28: Due for dialysis and ultrafiltration today. Labs and medications reviewed. Blood pressure is stable. November 27: BNP rising. Not much urine output. Will dialyze and ultrafiltrate tomorrow. Labs reviewed. Continue to adjust blood pressure medications. Continue per consultants. November 26: Last dialysis November 24. Status quo. Labs reviewed. Medication list reviewed. Continue to monitor renal parameters. Dialysis as needed. November 25: Patient was dialyzed yesterday. Today is due for insertion of a GT tube. Patient pulled out his previous GT tube. Labs reviewed. Electrolytes abnormalities adjusted. Continue to monitor renal parameters. Patient is off BiPAP and on nasal cannula now. I believe that upon discharge the patient requires 2-3 times a week dialysis and ultrafiltration however upon discharge the patient needs to be followed by a conditioning coach in the facility that he goes to to assess on a regular basis the need and frequency for dialysis. November 24 : Late note entry due to system problem at the [facility] [place] [facility] today. Patient due for dialysis and ultrafiltration today. Labs reviewed. Chest x-ray results not available on EMR. Last dialysis November 21. Continue pulmonary toilet. Patient remains on BiPAP. Will check labs tomorrow. Subjective ROS Limited/Unobtainable: No Constitutional: Reports: malaise, weakness Objective Objective Last 24 Hour Vital Signs Date Time Temp Pulse Resp B/P (MAP) Pulse Ox O2 Delivery O2 Flow Rate FiO2 12/13/19 12:00 97.7 74 18 136/72 (93) 99 12/13/19 09:11 68 130/68 12/13/19 09:11 68 130/68 12/13/19 09:00 Nasal Cannula 1.0 12/13/19 08:00 97.6 68 18 130/68 (88) 96 12/13/19 04:00 97.3 64 18 132/62 (85) 99 12/13/19 00:00 97.9 64 18 125/42 (69) 95 12/12/19 21:40 Nasal Cannula 1.0 12/12/19 20:17 97 Nasal Cannula 1.0 24 12/12/19 20:06 77 116/47 12/12/19 20:06 77 116/47 12/12/19 20:00 97.3 74 18 132/45 (74) 95 12/12/19 16:00 97.2 77 18 116/47 (70) 95 Intake and Output 12/12/19 12/13/19 19:00 07:00 Intake Total 630 ml 520 ml Output Total 450 ml Balance 630 ml 70 ml Intake Free Water 150 ml 120 ml Tube Feeding 480 ml 400 ml Output Urine Total 450 ml Laboratory Tests 12/13/19 05:41: White Blood Count 9.3, Red Blood Count 3.22L, Hemoglobin 9.1L, Hematocrit 29.5L, Mean Corpuscular Volume 92, Mean Corpuscular Hemoglobin 28.3, Mean Corpuscular Hemoglobin Concent 30.8L, Red Cell Distribution Width 16.4H, Platelet Count 355, Mean Platelet Volume 6.1L, Neutrophils (%) (Auto) 68.4, Lymphocytes (%) (Auto) 25.0, Monocytes (%) (Auto) 4.5, Eosinophils (%) (Auto) 1.4, Basophils (%) (Auto) 0.8, Sodium Level 134L, Potassium Level 4.8, Chloride Level 99, Carbon Dioxide Level 27, Anion Gap 8, Blood Urea Nitrogen 71H, Creatinine 3.8H, Estimat Glomerular Filtration Rate 15.4, Glucose Level 140H, Calcium Level 9.0, Phosphorus Level 2.7, Total Bilirubin 0.4, Aspartate Amino Transf (AST/SGOT) 20, Alanine Aminotransferase (ALT/SGPT) 14, Alkaline Phosphatase 163H, Total Protein 6.7, Albumin 2.5L, Globulin 4.2, Albumin/Globulin Ratio 0.6L Height (Feet): 5 Height (Inches): 5.00 Weight (Pounds): 169 General Appearance: no apparent distress Cardiovascular: normal rate Respiratory/Chest: decreased breath sounds Abdomen: distended Objective No change Naveed Vanegas MD Dec 13, 2019 13:01
[2019-12-13 16:00] VITALS: BP 133/80
[2019-12-13 20:00] VITALS: BP 146/50
[2019-12-13] MEDS: Dyna-Hex 2% Top Sol 2oz TOPIC SCH (20:00)
[2019-12-13] MEDS: Epoetin Alfa-EPBX(ESRD on dialysis)10,000 unit/ml vial SUBQ SCH (20:09)
[2019-12-13] MEDS: DiphenhydrAMINE 25mg/10ml Elixir NG PRN (20:27)
[2019-12-14] VITALS: BP 137/54
[2019-12-14 04:00] VITALS: BP 122/45
[2019-12-14] MEDS: NovoLOG Insulin Flexpen SUBQ SCH ×4 (05:23→17:39)
[2019-12-14 07:12] LABS: ALBUMIN 2.8 G/DL (3.4-5.0); ALBUMIN/GLOBULIN RATIO 0.6 (1.0-2.7); BILIRUBIN,TOTAL 0.5 MG/DL (0.2-1.0); CALCIUM 9.3 MG/DL (8.5-10.1); CREATININE 4.5 MG/DL (0.55-1.30); PHOSPHORUS 4.5 MG/DL (2.5-4.9); POTASSIUM 5.1 MMOL/L (3.5-5.1)
[2019-12-14 07:58] LABS: BASOPHILS % (AUTO) 0.9 % (0.0-2.0); EOSINOPHILS % (AUTO) 1.6 % (0.0-3.0); HEMOGLOBIN 9.6 G/DL (14.2-18.0); LYMPHOCYTES % (AUTO) 20.4 % (20.0-45.0); MEAN CORPUSCULAR VOLUME 91 FL (80-99); MONOCYTES % (AUTO) 5.1 % (1.0-10.0); PLATELET COUNT 367 K/UL (150-450); WHITE BLOOD COUNT 9.7 K/UL (4.8-10.8)
[2019-12-14 08:00] VITALS: BP 126/58
[2019-12-14] MEDS: Metoprolol Tartrate 12.5mg TAB GT SCH ×2 (09:00→20:53)
--- NOTE | 2019-12-14 09:00 | Hematology/Onc Progress Note ---
Assessment/Plan Assessment/Plan ASSESSMENT AND RECOMMENDATIONS: # Anemia of chronic disease due to underlying chronic medical issues, multifactorial --> Anemia w/u has been reviewed. --> no evidence of hemolysis is noted, peripheral smear has been reviewed --> hgb goal is >7, transfuse as needed --> currently remains stable, occult blood negative --> hgb 8.4->8.6->8.3->8->8.2->9.2-->9.2->8.9-->8.1-->8.7>9.4-->8.7-->8->7.8->7.5-->7.4- ->7.5-->8.1-->8-->8.1-->9.5->7.9-->7.6-->7.5-->9.9-->8.8-->9.1->9.6 --> 1 unit prbc 12/03 --> some blood loss due to hematuria after inflated reyes pulled 8/6 am --> EPOGEN Started # Thrombocytopenia is likely due to infection --> plt trend 180-->149-->274 --> on abx as needed --> hep and hiv neg #. Leukocytosis with underlying infectionv stress reaction HISTORY --> per id and better --> for infection, ABX ctx/vanc-->off --> wbc 10-->5.9 # Acute kidney injury r/o potential reversible component --> reviewed meds, those that are renally cleared removed --> as per renal recs, appreciated --> cr 3.5-->4.2-->3.4->3.3 --> Hd started and dw renal # Hypertension, essential --> sbp goal is <140, consider anti-htn as needed --> currently started on hyralazine 25mg po q6h prn sbp >140 # CHF - hx of CHf --> diuresis with lasix as needed --> cardiology recs appreciated prior adm #. Bilateral lower extremity amputee, metatarsal several years ago --> stable #. Atrial fibrillation --> as per cards recs #. Dysphagia s/p peg --> peg pulled out and now with gtube 11/25 #. Hyperkalemia --> kayxelate as needed #. Agitation requires restraints #. Dvt ppx scds --> xarelto=> off-->eliquis-->off-->eliquis The time the note was entered does not necessarily correspond to the time the patient was seen. GREATLY APPRECIATE CONSULTATION. Subjective Constitutional: Denies: no symptoms, chills, fever, malaise, weakness, other HEENT: Denies: no symptoms, eye pain, blurred vision, tearing, double vision, ear pain, ear discharge, nose pain, nose congestion, throat pain, throat swelling, mouth pain, mouth swelling, other Cardiovascular: Denies: no symptoms, chest pain, edema, irregular heart rate, lightheadedness, palpitations, syncope, other Respiratory: Denies: no symptoms, cough, shortness of breath, SOB with excertion, SOB at rest, sputum, wheezing, other Gastrointestinal/Abdominal: Denies: no symptoms, abdomen distended, abdominal pain, black stools, tarry stools, blood in stool, constipated, diarrhea, difficulty swallowing, nausea, poor appetite, poor fluid intake, rectal bleeding, vomiting, other Genitourinary: Denies: no symptoms, burning, discharge, frequency, flank pain, hematuria, incontinence, pain, urgency, other Neurologic/Psychiatric: Denies: no symptoms, anxiety, depressed, emotional problems, headache, numbness, paresthesia, pre-existing deficit, seizure, tingling, tremors, weakness, other Endocrine: Denies: no symptoms, excessive sweating, flushing, intolerance to cold, intolerance to heat, increased hunger, increased thirst, increased urine, unexplained weight gain, unexplained weight loss, other Allergies: Coded Allergies: PENICILLINS (Verified Allergy, Unknown, 10/25/19) tolerated Ceftriaxone Uncoded Allergies: PENICILLIN (Allergy, Unknown, 11/23/19) Subjective 11/23 came back from [facility] due to lack of bipap capability, hgb 7.5 11/24 labs reviewed, remains sob, with a hgb 8.1, no bleeding, jag salas, hold off prb c 11/25 labs are noted, for egd and peg in the am, jag salas, on nc 11/27 getting 3l nc overnight, has been refusing bipap unfortunately, hgb stable 11/28 labs noted, with gtube feeds, again this am refusing bipap 11/29 is on 2l nc, with gtube feeds, hgb 9.5, no bleeding 11/30 labs are noted, no bleeding, on gtube feeds, on 2l nc 12/01 meds noted, no bleeding, hgb 7.9 yesterday, on nc 12/02 is on nepro and on 2l, hgb 7.6, c/o itching, have started benadryl q 8h prn 12/04 labs reviewed, coverning for Dr. Chang, no bleeding, meds noted, wants restraints off 12/05 labs are noted, no bleeding, no night sweats, with gtube feeds ongoing 12/06 labs reviewed, no bleeding, meds noted, no major changes, peg+ 12/07 on wrist restraints, gtube was pulled out overnight, no bleedng 12/10 no acute events, nc 2l, bilat wrist restraints, eliquis 12/11 labs are noted, labs reviewed, is on 2l, agitated again 12/12 is awake, alert, no bleeding, meds reviewed, no night sweats, hgb 9.1 12/13 labs reviewed, is on 1l nc, no bleeding, meds noted, hgb 9.6 Objective Objective Current Medications Medications (Trade) Dose Ordered Sig/Cammy Route PRN Reason Start Time Stop Time Status Last Admin Dose Admin Allopurinol (allopurinoL) 300 mg DAILY ORAL 11/26/19 10:30 12/24/19 10:29 12/13/19 09:11 Amiodarone HCl (Cordarone) 200 mg EVERY 12 HOURS ORAL 12/04/19 21:00 03/03/20 20:59 12/13/19 20:08 Amlodipine Besylate (Norvasc) 5 mg Q12HR GT 11/28/19 21:00 12/24/19 10:29 12/13/19 20:09 Apixaban (Eliquis) 2.5 mg BID ORAL 11/26/19 10:30 02/22/20 10:29 12/13/19 17:56 Atorvastatin Calcium (Lipitor) 10 mg BEDTIME ORAL 11/26/19 21:00 02/22/20 20:59 9/21/20 20:09 Chlorhexidine Gluconate (Yi-Hex 2%) 1 applic DAILY@2000 TOPIC 11/26/19 20:00 02/24/20 19:59 12/12/19 20:06 Dextrose (Dextrose 50%) 25 ml Q30M PRN IV Hypoglycemia 12/03/19 10:30 03/02/20 10:29 Dextrose (Dextrose 50%) 50 ml Q30M PRN IV Hypoglycemia 12/03/19 10:30 03/02/20 10:29 Diphenhydramine HCl (Benadryl) 25 mg Q8H PRN NG Itching 12/03/19 09:30 01/02/20 09:29 12/13/19 20:27 Docusate Sodium (Colace) 100 mg THREE TIMES A DAY NG 11/28/19 13:00 12/28/19 12:59 12/13/19 17:55 Epoetin William (Epoetin William(ESRD on dialysis)) 10,000 unit SUBQ 12/01/19 21:00 02/29/20 20:59 12/13/19 20:09 Insulin Aspart (NovoLOG) Q6HR SUBQ 12/03/19 12:00 03/02/20 11:59 12/13/19 18:03 Lansoprazole (Prevacid) 30 mg DAILY GT 11/28/19 10:45 12/28/19 10:44 12/13/19 09:11 Metoprolol Tartrate (Lopressor) 12.5 mg Q12HR GT 11/29/19 09:00 02/27/20 08:59 12/13/19 20:09 Morphine Sulfate (Morphine 10mg/ 5ml Oral Soln) 1 mg EVERY 8 HOURS PRN ORAL For Pain 12/12/19 16:30 12/19/19 16:29 12/12/19 17:51 Sennosides (Senokot) 8.6 mg DAILY PRN ORAL Constipation 11/26/19 10:30 12/26/19 10:29 Last 24 Hour Vital Signs Date Time Temp Pulse Resp B/P (MAP) Pulse Ox O2 Delivery O2 Flow Rate FiO2 12/14/19 08:00 98.2 63 20 126/58 (80) 97 12/14/19 04:00 98.2 58 20 122/45 (70) 96 12/14/19 00:00 98.3 66 18 137/54 (81) 95 12/13/19 22:38 Nasal Cannula 1.0 12/13/19 20:09 79 133/80 12/13/19 20:09 79 133/80 12/13/19 20:00 98.1 72 18 146/50 (82) 95 12/13/19 16:00 98.0 79 18 133/80 (97) 99 12/13/19 12:00 97.7 74 18 136/72 (93) 99 12/13/19 09:11 68 130/68 12/13/19 09:11 68 130/68 12/13/19 09:00 Nasal Cannula 1.0 12/13/19 08:00 97.6 68 18 130/68 (88) 96 12/13/19 04:00 97.3 64 18 132/62 (85) 99 12/13/19 00:00 97.9 64 18 125/42 (69) 95 12/12/19 21:40 Nasal Cannula 1.0 12/12/19 20:17 97 Nasal Cannula 1.0 24 12/12/19 20:06 77 116/47 12/12/19 20:06 77 116/47 12/12/19 20:00 97.3 74 18 132/45 (74) 95 12/12/19 16:00 97.2 77 18 116/47 (70) 95 12/12/19 12:00 97.9 101 18 108/45 (66) 94 12/12/19 09:00 Nasal Cannula 1.0 Intake and Output 12/13/19 12/14/19 19:00 07:00 Intake Total 620 ml Output Total 800 ml 200 ml Balance -800 ml 420 ml Intake Free Water 180 ml Tube Feeding 440 ml Output Urine Total 800 ml 200 ml # Voids 1 Labs Test 12/12/19 07:15 12/13/19 05:41 12/14/19 05:30 White Blood Count 8.8 K/UL (4.8-10.8) 9.3 K/UL (4.8-10.8) 9.7 K/UL (4.8-10.8) Red Blood Count 3.53 M/UL (4.70-6.10) 3.22 M/UL (4.70-6.10) 3.40 M/UL (4.70-6.10) Hemoglobin 9.9 G/DL (14.2-18.0) 9.1 G/DL (14.2-18.0) 9.6 G/DL (14.2-18.0) Hematocrit 32.0 % (42.0-52.0) 29.5 % (42.0-52.0) 31.0 % (42.0-52.0) Mean Corpuscular Volume 91 FL (80-99) 92 FL (80-99) 91 FL (80-99) Mean Corpuscular Hemoglobin 28.0 PG (27.0-31.0) 28.3 PG (27.0-31.0) 28.2 PG (27.0-31.0) Mean Corpuscular Hemoglobin Concent 30.9 G/DL (32.0-36.0) 30.8 G/DL (32.0-36.0) 31.0 G/DL (32.0-36.0) Red Cell Distribution Width 17.1 % (11.6-14.8) 16.4 % (11.6-14.8) 17.0 % (11.6-14.8) Platelet Count 367 K/UL (150-450) 355 K/UL (150-450) 367 K/UL (150-450) Mean Platelet Volume 6.2 FL (6.5-10.1) 6.1 FL (6.5-10.1) 6.5 FL (6.5-10.1) Neutrophils (%) (Auto) 76.7 % (45.0-75.0) 68.4 % (45.0-75.0) 72.0 % (45.0-75.0) Lymphocytes (%) (Auto) 15.4 % (20.0-45.0) 25.0 % (20.0-45.0) 20.4 % (20.0-45.0) Monocytes (%) (Auto) 4.5 % (1.0-10.0) 4.5 % (1.0-10.0) 5.1 % (1.0-10.0) Eosinophils (%) (Auto) 1.2 % (0.0-3.0) 1.4 % (0.0-3.0) 1.6 % (0.0-3.0) Basophils (%) (Auto) 2.3 % (0.0-2.0) 0.8 % (0.0-2.0) 0.9 % (0.0-2.0) Sodium Level 136 MMOL/L (136-145) 134 MMOL/L (136-145) 134 MMOL/L (136-145) Potassium Level 4.6 MMOL/L (3.5-5.1) 4.8 MMOL/L (3.5-5.1) 5.1 MMOL/L (3.5-5.1) Chloride Level 100 MMOL/L (98-107) 99 MMOL/L (98-107) 98 MMOL/L (98-107) Carbon Dioxide Level 30 MMOL/L (21-32) 27 MMOL/L (21-32) 28 MMOL/L (21-32) Anion Gap 6 mmol/L (5-15) 8 mmol/L (5-15) 8 mmol/L (5-15) Blood Urea Nitrogen 51 mg/dL (7-18) 71 mg/dL (7-18) 90 mg/dL (7-18) Creatinine 2.8 MG/DL (0.55-1.30) 3.8 MG/DL (0.55-1.30) 4.5 MG/DL (0.55-1.30) Estimat Glomerular Filtration Rate 21.9 mL/min (>60) 15.4 mL/min (>60) 12.6 mL/min (>60) Glucose Level 166 MG/DL (74-106) 140 MG/DL (74-106) 125 MG/DL (74-106) Calcium Level 9.3 MG/DL (8.5-10.1) 9.0 MG/DL (8.5-10.1) 9.3 MG/DL (8.5-10.1) Phosphorus Level 2.4 MG/DL (2.5-4.9) 2.7 MG/DL (2.5-4.9) 4.5 MG/DL (2.5-4.9) Magnesium Level 2.9 MG/DL (1.8-2.4) Total Bilirubin 0.4 MG/DL (0.2-1.0) 0.4 MG/DL (0.2-1.0) 0.5 MG/DL (0.2-1.0) Aspartate Amino Transf (AST/SGOT) 18 U/L (15-37) 20 U/L (15-37) 21 U/L (15-37) Alanine Aminotransferase (ALT/SGPT) 15 U/L (12-78) 14 U/L (12-78) 15 U/L (12-78) Alkaline Phosphatase 257 U/L (46-116) 163 U/L (46-116) 171 U/L (46-116) C-Reactive Protein, Quantitative 3.1 mg/dL (0.00-0.90) 2.1 mg/dL (0.00-0.90) Pro-B-Type Natriuretic Peptide 79154 pg/mL (0-125) Total Protein 7.4 G/DL (6.4-8.2) 6.7 G/DL (6.4-8.2) 7.3 G/DL (6.4-8.2) Albumin 2.8 G/DL (3.4-5.0) 2.5 G/DL (3.4-5.0) 2.8 G/DL (3.4-5.0) Globulin 4.6 g/dL 4.2 g/dL 4.5 g/dL Albumin/Globulin Ratio 0.6 (1.0-2.7) 0.6 (1.0-2.7) 0.6 (1.0-2.7) Uric Acid 4.0 MG/DL (2.6-7.2) Height (Feet): 5 Height (Inches): 5.00 Weight (Pounds): 169 Objective GENERAL: Not in acute distress. HEENT: ncat PULMONARY: Decreased breath sounds. ++ bipap v nc+ CHEST: ++permacath right chest CARDIOVASCULAR: Regular rate. No S3 or S4. ABDOMEN: Soft, nontender, nondistended.++reyes in site of old gtube EXTREMITIES: 1+ edema. No cyanosis, swelling, or edema. 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 Melvin Rizzo MD Dec 14, 2019 09:00
[2019-12-14] MEDS: Eliquis 2.5mg tablet ORAL SCH ×2 (09:15→17:23)
[2019-12-14] MEDS: Amiodarone 200mg tab ORAL SCH ×2 (09:15→20:52)
[2019-12-14] MEDS: Docusate 100mg/10ml Liq NG SCH ×3 (09:16→17:23)
[2019-12-14] MEDS: Morphine Sulfate 10mg/5ml Oral Soln ud ORAL PRN ×2 (09:16→20:45)
--- NOTE | 2019-12-14 09:44 | General Progress Note ---
Subjective ROS Limited/Unobtainable: No Allergies: Coded Allergies: PENICILLINS (Verified Allergy, Unknown, 10/25/19) tolerated Ceftriaxone Uncoded Allergies: PENICILLIN (Allergy, Unknown, 11/23/19) Objective Last 24 Hour Vital Signs Date Time Temp Pulse Resp B/P (MAP) Pulse Ox O2 Delivery O2 Flow Rate FiO2 12/14/19 09:00 63 126/58 12/14/19 09:00 63 126/58 12/14/19 08:00 98.2 63 20 126/58 (80) 97 12/14/19 04:00 98.2 58 20 122/45 (70) 96 12/14/19 00:00 98.3 66 18 137/54 (81) 95 12/13/19 22:38 Nasal Cannula 1.0 12/13/19 20:09 79 133/80 12/13/19 20:09 79 133/80 12/13/19 20:00 98.1 72 18 146/50 (82) 95 12/13/19 16:00 98.0 79 18 133/80 (97) 99 12/13/19 12:00 97.7 74 18 136/72 (93) 99 Intake and Output 12/13/19 12/14/19 19:00 07:00 Intake Total 620 ml Output Total 800 ml 200 ml Balance -800 ml 420 ml Intake Free Water 180 ml Tube Feeding 440 ml Output Urine Total 800 ml 200 ml # Voids 1 Laboratory Tests 12/14/19 05:30: White Blood Count 9.7, Red Blood Count 3.40L, Hemoglobin 9.6L, Hematocrit 31.0L, Mean Corpuscular Volume 91, Mean Corpuscular Hemoglobin 28.2, Mean Corpuscular Hemoglobin Concent 31.0L, Red Cell Distribution Width 17.0H, Platelet Count 367, Mean Platelet Volume 6.5, Neutrophils (%) (Auto) 72.0, Lymphocytes (%) (Auto) 20.4, Monocytes (%) (Auto) 5.1, Eosinophils (%) (Auto) 1.6, Basophils (%) (Auto) 0.9, Sodium Level 134L, Potassium Level 5.1, Chloride Level 98, Carbon Dioxide Level 28, Anion Gap 8, Blood Urea Nitrogen 90H, Creatinine 4.5H, Estimat Glomerular Filtration Rate 12.6, Glucose Level 125H, Uric Acid 4.0, Calcium Level 9.3, Phosphorus Level 4.5, Total Bilirubin 0.5, Aspartate Amino Transf (AST/SGOT) 21, Alanine Aminotransferase (ALT/SGPT) 15, Alkaline Phosphatase 171H , C-Reactive Protein, Quantitative 2.1H, Total Protein 7.3, Albumin 2.8L, Globulin 4.5, Albumin/Globulin Ratio 0.6L Height (Feet): 5 Height (Inches): 5.00 Weight (Pounds): 169 General Appearance: no apparent distress EENT: PERRL/EOMI Neck: supple Cardiovascular: normal peripheral pulses Respiratory/Chest: decreased breath sounds Abdomen: normal bowel sounds, non tender, soft Extremities: non-tender Assessment/Plan Problem List: (1) Hypertension ICD Codes: I10 - Essential (primary) hypertension SNOMED: 96283405 (2) Diabetes mellitus ICD Codes: E11.9 - Type 2 diabetes mellitus without complications SNOMED: 00248469 (3) Cholelithiasis ICD Codes: K80.20 - Calculus of gallbladder without cholecystitis without obstruction SNOMED: 180864198 Status: stable Assessment/Plan: dysphagia s/p GT placement GTF monitor for residuals fu H&H prn blood transfusion Lawrence Humphreys MD Dec 14, 2019 09:44
--- NOTE | 2019-12-14 09:51 | Pulmonology Progress Note ---
Subjective ROS Limited/Unobtainable: No Allergies: Coded Allergies: PENICILLINS (Verified Allergy, Unknown, 10/25/19) tolerated Ceftriaxone Uncoded Allergies: PENICILLIN (Allergy, Unknown, 11/23/19) All Systems: reviewed and negative except above Subjective on MS floor condition the same on O2 2 L via NC, pulse ox stable off BiPAP and continued to decline it no signs of resp distress code status changed to DNR/DNI on 12/06 by attending due to family wishes dc plan in process challenging placement Objective Last 24 Hour Vital Signs Date Time Temp Pulse Resp B/P (MAP) Pulse Ox O2 Delivery O2 Flow Rate FiO2 12/14/19 09:00 63 126/58 12/14/19 09:00 63 126/58 12/14/19 08:00 98.2 63 20 126/58 (80) 97 12/14/19 04:00 98.2 58 20 122/45 (70) 96 12/14/19 00:00 98.3 66 18 137/54 (81) 95 12/13/19 22:38 Nasal Cannula 1.0 12/13/19 20:09 79 133/80 12/13/19 20:09 79 133/80 12/13/19 20:00 98.1 72 18 146/50 (82) 95 12/13/19 16:00 98.0 79 18 133/80 (97) 99 12/13/19 12:00 97.7 74 18 136/72 (93) 99 Intake and Output 12/13/19 12/14/19 19:00 07:00 Intake Total 620 ml Output Total 800 ml 200 ml Balance -800 ml 420 ml Intake Free Water 180 ml Tube Feeding 440 ml Output Urine Total 800 ml 200 ml # Voids 1 Objective General Appearance: alert , confused, but more awake Irish speaking male, Lines, tubes and drains: peripheral HEENT: normocephalic, atraumatic, anicteric, O2 via NC Neck: supple Respiratory/Chest: lungs clear, no respiratory distress Cardiovascular/Chest: normal rate, Abdomen: non tender, soft, feeding tube - G tube Extremities: BL foot TMA Neurologic: abnormal gait, alert, confused, responsive Musculoskeletal: atrophy - BLE Laboratory Tests 12/14/19 05:30: White Blood Count 9.7, Red Blood Count 3.40L, Hemoglobin 9.6L, Hematocrit 31.0L, Mean Corpuscular Volume 91, Mean Corpuscular Hemoglobin 28.2, Mean Corpuscular Hemoglobin Concent 31.0L, Red Cell Distribution Width 17.0H, Platelet Count 367, Mean Platelet Volume 6.5, Neutrophils (%) (Auto) 72.0, Lymphocytes (%) (Auto) 20.4, Monocytes (%) (Auto) 5.1, Eosinophils (%) (Auto) 1.6, Basophils (%) (Auto) 0.9, Sodium Level 134L, Potassium Level 5.1, Chloride Level 98, Carbon Dioxide Level 28, Anion Gap 8, Blood Urea Nitrogen 90H, Creatinine 4.5H, Estimat Glomerular Filtration Rate 12.6, Glucose Level 125H, Uric Acid 4.0, Calcium Level 9.3, Phosphorus Level 4.5, Total Bilirubin 0.5, Aspartate Amino Transf (AST/SGOT) 21, Alanine Aminotransferase (ALT/SGPT) 15, Alkaline Phosphatase 171H , C-Reactive Protein, Quantitative 2.1H, Total Protein 7.3, Albumin 2.8L, Globulin 4.5, Albumin/Globulin Ratio 0.6L Current Medications Medications (Trade) Dose Ordered Sig/Cammy Route PRN Reason Start Time Stop Time Status Last Admin Dose Admin Allopurinol (allopurinoL) 300 mg DAILY ORAL 11/26/19 10:30 12/24/19 10:29 12/14/19 09:15 Amiodarone HCl (Cordarone) 200 mg EVERY 12 HOURS ORAL 12/04/19 21:00 03/03/20 20:59 12/14/19 09:15 Amlodipine Besylate (Norvasc) 5 mg Q12HR GT 11/28/19 21:00 12/24/19 10:29 12/13/19 20:09 Apixaban (Eliquis) 2.5 mg BID ORAL 11/26/19 10:30 02/22/20 10:29 12/14/19 09:15 Atorvastatin Calcium (Lipitor) 10 mg BEDTIME ORAL 11/26/19 21:00 02/22/20 20:59 12/13/19 20:09 Chlorhexidine Gluconate (Yi-Hex 2%) 1 applic DAILY@1999 TOPIC 11/26/19 20:00 02/24/20 19:59 12/12/19 20:06 Dextrose (Dextrose 50%) 25 ml Q30M PRN IV Hypoglycemia 12/03/19 10:30 03/02/20 10:29 Dextrose (Dextrose 50%) 50 ml Q30M PRN IV Hypoglycemia 12/03/19 10:30 03/02/20 10:29 Diphenhydramine HCl (Benadryl) 25 mg Q8H PRN NG Itching 12/03/19 09:30 01/02/20 09:29 12/13/19 20:27 Docusate Sodium (Colace) 100 mg THREE TIMES A DAY NG 11/28/19 13:00 12/28/19 12:59 12/14/19 09:16 Epoetin William (Epoetin William(ESRD on dialysis)) 10,000 unit FRI-FRI-FRI SUBQ 12/01/19 21:00 02/29/20 20:59 12/13/19 20:09 Insulin Aspart (NovoLOG) Q6HR SUBQ 12/03/19 12:00 03/02/20 11:59 12/13/19 18:03 Lansoprazole (Prevacid) 30 mg DAILY GT 11/28/19 10:45 12/28/19 10:44 12/14/19 09:15 Metoprolol Tartrate (Lopressor) 12.5 mg Q12HR GT 11/29/19 09:00 02/27/20 08:59 12/13/19 20:09 Morphine Sulfate (Morphine 10mg/ 5ml Oral Soln) 1 mg EVERY 8 HOURS PRN ORAL For Pain 12/12/19 16:30 12/19/19 16:29 12/14/19 09:16 Sennosides (Senokot) 8.6 mg DAILY PRN ORAL Constipation 11/26/19 10:30 12/26/19 10:29 Assessment/Plan Assessment/Plan ASSESSMENT Prior acute hypoxemic hypercapnic respiratory failure requiring BiPAP Chronic CO2 retention Possible DAYANA Aspiration risk s/p recent PNA Dysphagia , s/p PEG , pulled out, s/p replacement of PEG 11/16 Acute kidney injury on chronic kidney disease, requiring start of HD 10/30 Anemia of chronic kidney disease PAF/flutter- converted to SR Diabetes mellitus HTN PVD with hx of bilateral foot MTA Refusal of care PLAN OF CARE MS floor BiPAP at HS and prn , refusing again currently on O2 3 L via NC titrate O2, pulm toilet patient likely has DAYANA. recommend sleep study as OP CXR 11/28 mild vascular congestion and small bilateral pleural effusions, slightly improved when compared to October 31, 2019. No pneumothorax. Cardiomegaly. Calcified aorta. ABG prn rapid COVID NGT, BiPAP prn and HS-continued to refuse developed A flutter/ fib 12/03 seen by cardio already spontaneously converter to SR on a/c with Eliquis, rate controlled with BB ECHO with pEF 55-60% rate control with BB, HR stable on chronic a/c , was on hold for PEG, Eliquis afterwards resumed BP management with CCB and BB, optimize as needed continue statin ethics eval if pt can refuse BiPAP ( patient with dementia, confusion), daughter wants BiPAP and unclear how he refused if was on restraints? in our opinion BiPAP should be on standing order and available in the facility when patient will be transferred need formal polysomnogram to be done as OP bioethics eval appreciated, done 11/25 . per bioethics: pt with diminished capacity and does not understand the consequences of refusing bi-pap, yet it seems inhumane to force him to endure it recommended that he should be discharged to the SNF on nasal canula with instructions not to be sent back to the acute care hospital for refusal to accept bi-pap. bioethics offered to have a family conference to explain the reasoning if the family is willing to speak with us. SHERRIE spoke with daughter and ( through RN environmental sampling technician) re further GOC and code status 11/29 daughter and decided on DNR/DNI status , which was relayed to me by SHERRIE 12/02 Dr Pabon spoke with Dr Chang, code status changed on 12/06 to DNR/DNI dc plan to SNF ; SHERRIE discussed with family ( not want [facility]) , ongoing search for the facility completed Rx for PNA on prior admission Venous Duplex BLE 10/25 -> NGT aspir precautions, new BSSE pending TF via GT for now protein supplements HD as per nephro recs monitor volumes, renal paramerts, lytes s/p placement of permanent HD catheter R chest 11/07 s/p removal of temporary HD catheter by surgeon prior HgA1c -6.1 hold oral anti-glycemic monitor HH with goal to keep Hgb above 7 anemia w/up prior noted , heme on board on EPO GI prophayxlis supportive care dc plan in progress, challenging placement case discussed and evaluated by supervising physician Reema Hanna NP Dec 14, 2019 09:51
[2019-12-14 12:00] VITALS: BP 130/63
[2019-12-14 16:00] VITALS: BP 104/39
--- NOTE | 2019-12-14 16:13 | Cardiac Electrophysiology PN ---
Assessment/Plan Assessment/Plan 1. Atrial flutter. 12-lead EKG is typical atrial flutter. Echo EF 55%. Ruled out for CA protocol. Continue Amiodarone 200 bid, metoprolol 12.5 mg b.i.d. and Eliquis. 2. Hypertension, on metoprolol 12.5 mg bid ,amlodipine 5 mg b.i.d. and hemodialysis. 3. Hyperlipidemia, on Lipitor. 4. End-stage renal disease, on hemodialysis. 5. Diabetes on insulin. 6. DNR/DNI status 7. COPD, off BiPAP. 8. Peripheral vascular disease, status post bilateral transmetatarsal amputation. FREDERIC RN Subjective Subjective Confused in NAD. In and out of atrial fib. PEG feeding On 2 liter NC. On HD Objective Last 24 Hour Vital Signs Date Time Temp Pulse Resp B/P (MAP) Pulse Ox O2 Delivery O2 Flow Rate FiO2 12/14/19 12:00 98.0 69 19 130/63 (85) 98 12/14/19 09:00 63 126/58 12/14/19 09:00 63 126/58 12/14/19 09:00 Nasal Cannula 1.0 12/14/19 08:00 98.2 63 20 126/58 (80) 97 12/14/19 04:00 98.2 58 20 122/45 (70) 96 12/14/19 00:00 98.3 66 18 137/54 (81) 95 12/13/19 22:38 Nasal Cannula 1.0 12/13/19 20:09 79 133/80 12/13/19 20:09 79 133/80 12/13/19 20:00 98.1 72 18 146/50 (82) 95 Intake and Output 12/13/19 12/14/19 19:00 07:00 Intake Total 620 ml Output Total 800 ml 200 ml Balance -800 ml 420 ml Intake Free Water 180 ml Tube Feeding 440 ml Output Urine Total 800 ml 200 ml # Voids 1 Laboratory Tests Test 12/13/19 17:55 12/14/19 00:20 12/14/19 04:50 12/14/19 05:30 POC Whole Blood Glucose 185 MG/DL (74-106) H 148 MG/DL (74-106) H 133 MG/DL (74-106) H White Blood Count 9.7 K/UL (4.8-10.8) Red Blood Count 3.40 M/UL (4.70-6.10) L Hemoglobin 9.6 G/DL (14.2-18.0) L Hematocrit 31.0 % (42.0-52.0) L Mean Corpuscular Volume 91 FL (80-99) Mean Corpuscular Hemoglobin 28.2 PG (27.0-31.0) Mean Corpuscular Hemoglobin Concent 31.0 G/DL (32.0-36.0) L Red Cell Distribution Width 17.0 % (11.6-14.8) H Platelet Count 367 K/UL (150-450) Mean Platelet Volume 6.5 FL (6.5-10.1) Neutrophils (%) (Auto) 72.0 % (45.0-75.0) Lymphocytes (%) (Auto) 20.4 % (20.0-45.0) Monocytes (%) (Auto) 5.1 % (1.0-10.0) Eosinophils (%) (Auto) 1.6 % (0.0-3.0) Basophils (%) (Auto) 0.9 % (0.0-2.0) Sodium Level 134 MMOL/L (136-145) L Potassium Level 5.1 MMOL/L (3.5-5.1) Chloride Level 98 MMOL/L (98-107) Carbon Dioxide Level 28 MMOL/L (21-32) Anion Gap 8 mmol/L (5-15) Blood Urea Nitrogen 90 mg/dL (7-18) H Creatinine 4.5 MG/DL (0.55-1.30) H Estimat Glomerular Filtration Rate 12.6 mL/min (>60) Glucose Level 125 MG/DL (74-106) H Uric Acid 4.0 MG/DL (2.6-7.2) Calcium Level 9.3 MG/DL (8.5-10.1) Phosphorus Level 4.5 MG/DL (2.5-4.9) Total Bilirubin 0.5 MG/DL (0.2-1.0) Aspartate Amino Transf (AST/SGOT) 21 U/L (15-37) Alanine Aminotransferase (ALT/SGPT) 15 U/L (12-78) Alkaline Phosphatase 171 U/L (46-116) H C-Reactive Protein, Quantitative 2.1 mg/dL (0.00-0.90) H Total Protein 7.3 G/DL (6.4-8.2) Albumin 2.8 G/DL (3.4-5.0) L Globulin 4.5 g/dL Albumin/Globulin Ratio 0.6 (1.0-2.7) L Test 12/14/19 11:14 POC Whole Blood Glucose 167 MG/DL (74-106) H Objective NECK: No JVD. LUNGS: Clear. He has dialysis access in the right IJ. CARDIOVASCULAR: Irregular S1 and S2 with no gallop. ABDOMEN: Status post G-tube. EXTREMITIES: Status post bilateral transmetatarsal amputation. Chris Valentin MD Dec 14, 2019 16:13
--- NOTE | 2019-12-14 16:21 | Nephrology Progress Note ---
Assessment/Plan Problem List: (1) Respiratory distress (2) Diabetes mellitus (3) Hypertension (4) Renal failure (ARF), acute on chronic Assessment Patient's current problem is dyspnea Most likely volume overload versus pneumonitis Other conditions: Renal failure (ARF), acute on chronic h/o Metabolic acidosis h/oElectrolyte imbalance Hyponatremia and hyperkalemia h/oAnemia h/o CHF (congestive heart failure) Plan December 13: Patient due for dialysis today. Labs reviewed. Patient is DNR. Confused. December 12: Last dialysis December 10. Labs reviewed. Medication list reviewed. Continue per current management. Check lab tomorrow, will arrange for dialysis as needed. December 11: Dialyzed yesterday. Status quo. Continue to monitor renal parameters and dialysis as needed. Continue per consultants. December 10: Due for dialysis today. No chemistry panel done today. We will continue to monitor renal parameters. Medication list reviewed. December 09: Last dialyzed December 06. Labs reviewed. Will order dialysis tomorrow. Continue current treatment plan. December 08: Last dialysis December 06. No chemistry panel today. Will check lab tomorrow. Hemodialysis as needed. December 07: Dialyzed yesterday. Labs reviewed. Stable from renal standpoint of view. December 06: Due for dialysis today. CBC and medication list reviewed. Continue per consultants. Hemoglobin drifting down. Will check CBC and chemistry panel tomorrow December 05: Labs reviewed. Serum creatinine up to 4.2. Calculated GFR 13. Last dialysis December 02. Will order dialysis tomorrow. December 04: Status quo. Labs reviewed. Continue per current management. December 03: Patient was dialyzed yesterday. Labs reviewed. Continue per current management. December 02: Due for dialysis today. Blood pressure medications on hold. Albumin 25% for BP support during dialysis. Continue to monitor renal parameters. December 01: Labs reviewed. Medication reviewed. Creatinine higher. Hemodialysis for tomorrow. Continue rest. November 30: Patient was last dialyzed November 28. Not in any distress now. Appears to be more verbal today. Labs reviewed. Creatinine 3.8. Hemoglobin lower at 7.9. 1 dose of IV iron ordered. Subcu Epogen ordered. November 29: Dialyzed yesterday. Status quo. Will check chemistry panel tomorrow. Dialysis as needed. Continue per PMD and consultants. November 28: Due for dialysis and ultrafiltration today. Labs and medications reviewed. Blood pressure is stable. November 27: BNP rising. Not much urine output. Will dialyze and ultrafiltrate tomorrow. Labs reviewed. Continue to adjust blood pressure medications. Continue per consultants. November 26: Last dialysis November 24. Status quo. Labs reviewed. Medication list reviewed. Continue to monitor renal parameters. Dialysis as needed. November 25: Patient was dialyzed yesterday. Today is due for insertion of a GT tube. Patient pulled out his previous GT tube. Labs reviewed. Electrolytes abnormalities adjusted. Continue to monitor renal parameters. Patient is off BiPAP and on nasal cannula now. I believe that upon discharge the patient requires 2-3 times a week dialysis and ultrafiltration however upon discharge the patient needs to be followed by a woodyard crane operator in the facility that he goes to to assess on a regular basis the need and frequency for dialysis. November 24 : Late [place] [facility] [place] Patient due for dialysis and ultrafiltration today. Labs reviewed. Chest x-ray results not available on EMR. Last dialysis November 21. Continue pulmonary toilet. Patient remains on BiPAP. Will check labs tomorrow. Subjective ROS Limited/Unobtainable: No Constitutional: Reports: malaise, weakness - All motion Objective Objective Last 24 Hour Vital Signs Date Time Temp Pulse Resp B/P (MAP) Pulse Ox O2 Delivery O2 Flow Rate FiO2 12/14/19 12:00 98.0 69 19 130/63 (85) 98 12/14/19 09:00 63 126/58 12/14/19 09:00 63 126/58 12/14/19 09:00 Nasal Cannula 1.0 12/14/19 08:00 98.2 63 20 126/58 (80) 97 12/14/19 04:00 98.2 58 20 122/45 (70) 96 12/14/19 00:00 98.3 66 18 137/54 (81) 95 12/13/19 22:38 Nasal Cannula 1.0 12/13/19 20:09 79 133/80 12/13/19 20:09 79 133/80 12/13/19 20:00 98.1 72 18 146/50 (82) 95 Intake and Output 12/13/19 12/14/19 19:00 07:00 Intake Total 620 ml Output Total 800 ml 200 ml Balance -800 ml 420 ml Intake Free Water 180 ml Tube Feeding 440 ml Output Urine Total 800 ml 200 ml # Voids 1 Laboratory Tests 12/13/19 17:55: POC Whole Blood Glucose 185H 12/14/19 00:20: POC Whole Blood Glucose 148H 12/14/19 04:50: POC Whole Blood Glucose 133H 12/14/19 05:30: White Blood Count 9.7, Red Blood Count 3.40L, Hemoglobin 9.6L, Hematocrit 31.0L, Mean Corpuscular Volume 91, Mean Corpuscular Hemoglobin 28.2, Mean Corpuscular Hemoglobin Concent 31.0L, Red Cell Distribution Width 17.0H, Platelet Count 367, Mean Platelet Volume 6.5, Neutrophils (%) (Auto) 72.0, Lymphocytes (%) (Auto) 20.4, Monocytes (%) (Auto) 5.1, Eosinophils (%) (Auto) 1.6, Basophils (%) (Auto) 0.9, Sodium Level 134L, Potassium Level 5.1, Chloride Level 98, Carbon Dioxide Level 28, Anion Gap 8, Blood Urea Nitrogen 90H, Creatinine 4.5H, Estimat Glomerular Filtration Rate 12.6, Glucose Level 125H, Uric Acid 4.0, Calcium Level 9.3, Phosphorus Level 4.5, Total Bilirubin 0.5, Aspartate Amino Transf (AST/SGOT) 21, Alanine Aminotransferase (ALT/SGPT) 15, Alkaline Phosphatase 171H , C-Reactive Protein, Quantitative 2.1H, Total Protein 7.3, Albumin 2.8L, Globulin 4.5, Albumin/Globulin Ratio 0.6L 12/14/19 11:14: POC Whole Blood Glucose 167H Height (Feet): 5 Height (Inches): 5.00 Weight (Pounds): 169 General Appearance: no apparent distress, confused Respiratory/Chest: decreased breath sounds Abdomen: soft Objective No change Naveed Vanegas MD Dec 14, 2019 16:21
[2019-12-14 20:00] VITALS: BP 103/50
[2019-12-14] MEDS: Dyna-Hex 2% Top Sol 2oz TOPIC SCH (20:43)
[2019-12-14] MEDS: DiphenhydrAMINE 25mg/10ml Elixir NG PRN (23:19)
[2019-12-15] VITALS: BP 138/46
[2019-12-15 04:00] VITALS: BP 130/52
[2019-12-15] MEDS: NovoLOG Insulin Flexpen SUBQ SCH ×4 (05:45→17:56)
[2019-12-15] MEDS: Morphine Sulfate 10mg/5ml Oral Soln ud ORAL PRN ×3 (06:16→20:49)
[2019-12-15] MEDS: Docusate 100mg/10ml Liq NG SCH ×3 (08:49→17:54)
[2019-12-15] MEDS: Eliquis 2.5mg tablet ORAL SCH ×2 (08:49→17:55)
--- NOTE | 2019-12-15 08:49 | Nephrology Progress Note ---
Assessment/Plan Problem List: (1) Respiratory distress (2) Diabetes mellitus (3) Hypertension (4) Renal failure (ARF), acute on chronic Assessment Patient's current problem is dyspnea Most likely volume overload versus pneumonitis Other conditions: Renal failure (ARF), acute on chronic h/o Metabolic acidosis h/oElectrolyte imbalance Hyponatremia and hyperkalemia h/oAnemia h/o CHF (congestive heart failure) Plan December 14: Patient was dialyzed yesterday. No chemistry panel done today. Continue to monitor renal parameters and dialysis treatment as needed. Continue per consultants. December 13: Patient due for dialysis today. Labs reviewed. Patient is DNR. Confused. December 12: Last dialysis December 10. Labs reviewed. Medication list reviewed. Continue per current management. Check lab tomorrow, will arrange for dialysis as needed. December 11: Dialyzed yesterday. Status quo. Continue to monitor renal parameters and dialysis as needed. Continue per consultants. December 10: Due for dialysis today. No chemistry panel done today. We will continue to monitor renal parameters. Medication list reviewed. December 09: Last dialyzed December 06. Labs reviewed. Will order dialysis tomorrow. Continue current treatment plan. December 08: Last dialysis December 06. No chemistry panel today. Will check lab tomorrow. Hemodialysis as needed. December 07: Dialyzed yesterday. Labs reviewed. Stable from renal standpoint of view. December 06: Due for dialysis today. CBC and medication list reviewed. Continue per consultants. Hemoglobin drifting down. Will check CBC and chemistry panel tomorrow December 05: Labs reviewed. Serum creatinine up to 4.2. Calculated GFR 13. Last dialysis December 02. Will order dialysis tomorrow. December 04: Status quo. Labs reviewed. Continue per current management. December 03: Patient was dialyzed yesterday. Labs reviewed. Continue per current management. December 02: Due for dialysis today. Blood pressure medications on hold. Albumin 25% for BP support during dialysis. Continue to monitor renal parameters. December 01: Labs reviewed. Medication reviewed. Creatinine higher. Hemodialysis for tomorrow. Continue rest. November 30: Patient was last dialyzed November 28. Not in any distress now. Appears to be more verbal today. Labs reviewed. Creatinine 3.8. Hemoglobin lower at 7.9. 1 dose of IV iron ordered. Subcu Epogen ordered. November 29: Dialyzed yesterday. Status quo. Will check chemistry panel tomorrow. Dialysis as needed. Continue per PMD and consultants. November 28: Due for dialysis and ultrafiltration today. Labs and medications reviewed. Blood pressure is stable. November 27: BNP rising. Not much urine output. Will dialyze and ultrafiltrate tomorrow. Labs reviewed. Continue to adjust blood pressure medications. Cont inue per consultants. November 26: Last dialysis November 24. Status quo. Labs reviewed. Medication list reviewed. Continue to monitor renal parameters. Dialysis as needed. November 25: Patient was dialyzed yesterday. Today is due for insertion of a GT tube. Patient pulled out his previous GT tube. Labs reviewed. Electrolytes abnormalities adjusted. Continue to monitor renal parameters. Patient is off BiPAP and on nasal cannula now. I believe that upon discharge the patient requires 2-3 times a week dialysis and ultrafiltration however upon discharge the patient needs to be followed by a bacteriology teacher in the facility that he goes to to assess on a regular basis the need and frequency for dialysis. November 24 : Late note entry due to system problem at the [facility] [place] today. Patient due for dialysis and ultrafiltration today. Labs reviewed. Chest x-ray results not available on EMR. Last dialysis November 21. Continue pulmonary toilet. Patient remains on BiPAP. Will check labs tomorrow. Subjective ROS Limited/Unobtainable: No Constitutional: Reports: malaise Objective Objective Last 24 Hour Vital Signs Date Time Temp Pulse Resp B/P (MAP) Pulse Ox O2 Delivery O2 Flow Rate FiO2 12/15/19 06:46 98.0 12/15/19 04:00 98.0 62 18 130/52 (78) 97 12/15/19 00:00 97.7 68 16 138/46 (76) 97 12/14/19 21:15 97.0 12/14/19 21:00 Nasal Cannula 1.0 12/14/19 20:54 59 103/50 12/14/19 20:53 59 103/50 12/14/19 20:19 98 Nasal Cannula 1.0 24 12/14/19 20:00 97.4 59 17 103/50 (67) 97 12/14/19 16:00 97.0 57 19 104/39 (60) 98 12/14/19 12:00 98.0 69 19 130/63 (85) 98 12/14/19 09:00 63 126/58 12/14/19 09:00 63 126/58 12/14/19 09:00 Nasal Cannula 1.0 Intake and Output 12/14/19 12/15/19 19:00 07:00 Intake Total 180 ml Output Total 3000 ml 150 ml Balance -2820 ml -150 ml Intake Free Water 60 ml Tube Feeding 120 ml Output Urine Total 150 ml Hemodialysis UF 3000 ml # Voids 1 # Bowel Movements 1 Laboratory Tests 12/14/19 11:14: POC Whole Blood Glucose 167H 12/15/19 05:39: POC Whole Blood Glucose 176H Height (Feet): 5 Height (Inches): 5.00 Weight (Pounds): 169 General Appearance: no apparent distress Cardiovascular: normal rate Respiratory/Chest: decreased breath sounds Abdomen: soft Objective No change Naveed Vanegas MD Dec 15, 2019 08:49
[2019-12-15] MEDS: Amiodarone 200mg tab ORAL SCH ×2 (08:50→20:48)
[2019-12-15] MEDS: Metoprolol Tartrate 12.5mg TAB GT SCH ×2 (08:50→20:49)
[2019-12-15 09:00] VITALS: BP 131/47
--- NOTE | 2019-12-15 09:35 | Pulmonology Progress Note ---
Reema Hanna [employer] 12/15/19 0935: Subjective ROS Limited/Unobtainable: No Allergies: Coded Allergies: PENICILLINS (Verified Allergy, Unknown, 10/25/19) tolerated Ceftriaxone Uncoded Allergies: PENICILLIN (Allergy, Unknown, 11/23/19) All Systems: reviewed and negative except above Subjective on MS floor condition the same on O2 2 L via NC, pulse ox stable off BiPAP and continued to decline it no signs of resp distress code status changed to DNR/DNI on 12/06 by attending due to family wishes c/o abd pain 12/13, GI follows no diarrhea, HH remains at baseline tolerates GT feeding pain medications regimen optimized no c/o abd pain this am dc plan in process apparently challenging placement Objective Last 24 Hour Vital Signs Date Time Temp Pulse Resp B/P (MAP) Pulse Ox O2 Delivery O2 Flow Rate FiO2 12/15/19 08:50 67 131/47 12/15/19 08:50 67 131/47 12/15/19 06:46 98.0 12/15/19 04:00 98.0 62 18 130/52 (78) 97 12/15/19 00:00 97.7 68 16 138/46 (76) 97 12/14/19 21:15 97.0 12/14/19 21:00 Nasal Cannula 1.0 12/14/19 20:54 59 103/50 12/14/19 20:53 59 103/50 12/14/19 20:19 98 Nasal Cannula 1.0 24 12/14/19 20:00 97.4 59 17 103/50 (67) 97 12/14/19 16:00 97.0 57 19 104/39 (60) 98 12/14/19 12:00 98.0 69 19 130/63 (85) 98 Intake and Output 12/14/19 12/15/19 19:00 07:00 Intake Total 180 ml Output Total 3000 ml 150 ml Balance -2820 ml -150 ml Intake Free Water 60 ml Tube Feeding 120 ml Output Urine Total 150 ml Hemodialysis UF 3000 ml # Voids 1 # Bowel Movements 1 Objective General Appearance: alert , confused, but more awake Setswana speaking male, Lines, tubes and drains: peripheral HEENT: normocephalic, atraumatic, anicteric, O2 via NC Neck: supple Respiratory/Chest: lungs clear, no respiratory distress Cardiovascular/Chest: normal rate, Abdomen: non tender, soft, feeding tube - G tube Extremities: BL foot TMA Neurologic: abnormal gait, alert, confused, responsive Musculoskeletal: atrophy - BLE Laboratory Tests 12/14/19 11:14: POC Whole Blood Glucose 167H 12/15/19 05:39: POC Whole Blood Glucose 176H Current Medications Medications (Trade) Dose Ordered Sig/Cammy Route PRN Reason Start Time Stop Time Status Last Admin Dose Admin Allopurinol (allopurinoL) 300 mg DAILY ORAL 11/26/19 10:30 12/24/19 10:29 12/15/19 08:49 Amiodarone HCl (Cordarone) 200 mg EVERY 12 HOURS ORAL 12/04/19 21:00 03/03/20 20:59 12/15/19 08:50 Amlodipine Besylate (Norvasc) 5 mg Q12HR GT 11/28/19 21:00 12/24/19 10:29 12/15/19 08:50 Apixaban (Eliquis) 2.5 mg BID ORAL 11/26/19 10:30 02/22/20 10:29 12/15/19 08:49 Atorvastatin Calcium (Lipitor) 10 mg BEDTIME ORAL 11/26/19 21:00 02/22/20 20:59 12/14/19 20:52 Chlorhexidine Gluconate (Yi-Hex 2%) 1 applic DAILY@1999 TOPIC 11/26/19 20:00 02/24/20 19:59 12/14/19 20:43 Dextrose (Dextrose 50%) 25 ml Q30M PRN IV Hypoglycemia 12/03/19 10:30 03/02/20 10:29 Dextrose (Dextrose 50%) 50 ml Q30M PRN IV Hypoglycemia 12/03/19 10:30 03/02/20 10:29 Diphenhydramine HCl (Benadryl) 25 mg Q8H PRN NG Itching 12/03/19 09:30 01/02/20 09:29 12/14/19 23:19 Docusate Sodium (Colace) 100 mg THREE TIMES A DAY NG 11/28/19 13:00 12/28/19 12:59 12/15/19 08:49 Epoetin William (Epoetin William(ESRD on dialysis)) 10,000 unit FRI-FRI-FRI SUBQ 12/01/19 21:00 12/8/20 20:59 12/13/19 20:09 Insulin Aspart (NovoLOG) Q6HR SUBQ 12/03/19 12:00 03/02/20 11:59 12/15/19 05:45 Lansoprazole (Prevacid) 30 mg DAILY GT 11/28/19 10:45 12/28/19 10:44 12/15/19 08:49 Metoprolol Tartrate (Lopressor) 12.5 mg Q12HR GT 11/29/19 09:00 02/27/20 08:59 12/15/19 08:50 Morphine Sulfate (Morphine 10mg/ 5ml Oral Soln) 1 mg Q6H PRN ORAL For Pain 12/14/19 14:29 12/21/19 14:28 12/15/19 06:16 Sennosides (Senokot) 8.6 mg DAILY PRN ORAL Constipation 11/26/19 10:30 12/26/19 10:29 Assessment/Plan Assessment/Plan ASSESSMENT Prior acute hypoxemic hypercapnic respiratory failure requiring BiPAP Chronic CO2 retention Possible DAYANA Aspiration risk s/p recent PNA Dysphagia , s/p PEG , pulled out, s/p replacement of PEG 11/16 Acute kidney injury on chronic kidney disease, requiring start of HD 10/30 Anemia of chronic kidney disease PAF/flutter- converted to SR Diabetes mellitus HTN PVD with hx of bilateral foot MTA Refusal of care PLAN OF CARE MS floor BiPAP at HS and prn , refusing again currently on O2 3 L via NC titrate O2, pulm toilet patient likely has DAYANA. recommend sleep study as OP CXR 11/28 mild vascular congestion and small bilateral pleural effusions, slightly improved when compared to October 31, 2019. No pneumothorax. Cardiomegaly. Calcified aorta. ABG prn rapid COVID NGT, BiPAP prn and HS-continued to refuse developed A flutter/ fib 12/03 seen by cardio already spontaneously converter to SR on a/c with Eliquis, rate controlled with BB ECHO with pEF 55-60% rate control with BB, HR stable on chronic a/c , was on hold for PEG, Eliquis afterwards resumed BP management with CCB and BB, optimize as needed continue statin ethics eval if pt can refuse BiPAP ( patient with dementia, confusion), daughter wants BiPAP and unclear how he refused if was on restraints? in our opinion BiPAP should be on standing order and available in the facility when patient will be transferred need formal polysomnogram to be done as OP bioethics eval appreciated, done 11/25 . per bioethics: pt with diminished capacity and does not understand the consequences of refusing bi-pap, yet it seems inhumane to force him to endure it recommended that he should be discharged to the SNF on nasal canula with instructions not to be sent back to the acute care hospital for refusal to accept bi-pap. bioethics offered to have a family conference to explain the reasoning if the family is willing to speak with us. SHERRIE spoke with daughter and ( through RN pump technician) re further GOC and code status 11/29 daughter and decided on DNR/DNI status , which was relayed to me by SW 12/02 Dr Pabon spoke with Dr Chang, code status changed on 12/06 to DNR/DNI dc plan to SNF ; SHERRIE discussed with family ( not want [facility]) , ongoing search for the facility completed Rx for PNA on prior admission Venous Duplex BLE 10/25 -> NGT aspir precautions, TF via GT f protein supplements GI follows pain management HH remains at baseline tolerates GT feeding bowel regimen, HD as per nephro recs monitor volumes, renal paramerts, lytes s/p placement of permanent HD catheter R chest 11/07 s/p removal of temporary HD catheter by surgeon prior HgA1c -6.1 hold oral anti-glycemic monitor HH with goal to keep Hgb above 7 anemia w/up prior noted , heme on board on EPO GI prophayxlis supportive care dc plan in progress, challenging placement case discussed and evaluated by supervising physician Jonathon Pabon MD 12/15/19 1105: Subjective Allergies: Coded Allergies: PENICILLINS (Verified Allergy, Unknown, 10/25/19) tolerated Ceftriaxone Uncoded Allergies: PENICILLIN (Allergy, Unknown, 11/23/19) Assessment/Plan Assessment/Plan Patient seen and examined with [employer]. Agree with above A&P as it reflects our joint deliberations. Reema Hanna NP Dec 15, 2019 09:35 Jonathon Pabon MD Dec 15, 2019 11:05
--- NOTE | 2019-12-15 10:05 | General Progress Note ---
Subjective ROS Limited/Unobtainable: No Allergies: Coded Allergies: PENICILLINS (Verified Allergy, Unknown, 10/25/19) tolerated Ceftriaxone Uncoded Allergies: PENICILLIN (Allergy, Unknown, 11/23/19) Objective Last 24 Hour Vital Signs Date Time Temp Pulse Resp B/P (MAP) Pulse Ox O2 Delivery O2 Flow Rate FiO2 12/15/19 09:00 97.8 67 18 131/47 (75) 100 12/15/19 09:00 Nasal Cannula 1.0 12/15/19 08:50 67 131/47 12/15/19 08:50 67 131/47 12/15/19 06:46 98.0 12/15/19 04:00 98.0 62 18 130/52 (78) 97 12/15/19 00:00 97.7 68 16 138/46 (76) 97 12/14/19 21:15 97.0 12/14/19 21:00 Nasal Cannula 1.0 12/14/19 20:54 59 103/50 12/14/19 20:53 59 103/50 12/14/19 20:19 98 Nasal Cannula 1.0 24 12/14/19 20:00 97.4 59 17 103/50 (67) 97 12/14/19 16:00 97.0 57 19 104/39 (60) 98 12/14/19 12:00 98.0 69 19 130/63 (85) 98 Intake and Output 12/14/19 12/15/19 19:00 07:00 Intake Total 180 ml Output Total 3000 ml 150 ml Balance -2820 ml -150 ml Intake Free Water 60 ml Tube Feeding 120 ml Output Urine Total 150 ml Hemodialysis UF 3000 ml # Voids 1 # Bowel Movements 1 Laboratory Tests 12/14/19 11:14: POC Whole Blood Glucose 167H 12/15/19 05:39: POC Whole Blood Glucose 176H Height (Feet): 5 Height (Inches): 5.00 Weight (Pounds): 169 General Appearance: no apparent distress EENT: normal ENT inspection Neck: supple Cardiovascular: normal rate Respiratory/Chest: decreased breath sounds Abdomen: normal bowel sounds, non tender, soft Extremities: non-tender Assessment/Plan Problem List: (1) Hypertension ICD Codes: I10 - Essential (primary) hypertension SNOMED: 33444798 (2) Diabetes mellitus ICD Codes: E11.9 - Type 2 diabetes mellitus without complications SNOMED: 38923574 (3) Cholelithiasis ICD Codes: K80.20 - Calculus of gallbladder without cholecystitis without obstruction SNOMED: 509807723 Status: stable Assessment/Plan: dysphagia s/p GT placement GTF monitor for residuals fu H&H prn blood transfusion Lawrence Humphreys MD Dec 15, 2019 10:05
--- NOTE | 2019-12-15 10:08 | Hematology/Onc Progress Note ---
Assessment/Plan Assessment/Plan ASSESSMENT AND RECOMMENDATIONS: # Anemia of chronic disease due to underlying chronic medical issues, multifactorial --> Anemia w/u has been reviewed. --> no evidence of hemolysis is noted, peripheral smear has been reviewed --> hgb goal is >7, transfuse as needed --> currently remains stable, occult blood negative --> hgb 8.4->8.6->8.3->8->8.2->9.2-->9.2->8.9-->8.1-->8.7>9.4-->8.7-->8->7.8->7.5-->7.4- ->7.5-->8.1-->8-->8.1-->9.5->7.9-->7.6-->7.5-->9.9-->8.8-->9.1->9.6 --> 1 unit prbc 12/03 --> some blood loss due to hematuria after inflated reyes pulled 8/6 am --> EPOGEN to continue # Thrombocytopenia is likely due to infection --> plt trend 180-->149-->274 --> on abx as needed --> hep and hiv neg #. Leukocytosis with underlying infectionv stress reaction HISTORY --> per id and better --> for infection, ABX ctx/vanc-->off --> wbc 10-->5.9 # Acute kidney injury r/o potential reversible component --> reviewed meds, those that are renally cleared removed --> as per renal recs, appreciated --> cr 3.5-->4.2-->3.4->3.3 --> Hd started and dw renal # Hypertension, essential --> sbp goal is <140, consider anti-htn as needed --> currently started on hyralazine 25mg po q6h prn sbp >140 # CHF - hx of CHf --> diuresis with lasix as needed --> cardiology recs appreciated prior adm #. Bilateral lower extremity amputee, metatarsal several years ago --> stable #. Atrial fibrillation --> as per cards recs #. Dysphagia s/p peg --> peg pulled out and now with gtube 11/25 #. Hyperkalemia --> kayxelate as needed #. Agitation requires restraints #. Dvt ppx scds --> xarelto=> off-->eliquis-->off-->eliquis The time the note was entered does not necessarily correspond to the time the patient was seen. GREATLY APPRECIATE CONSULTATION. Subjective Constitutional: Denies: no symptoms, chills, fever, malaise, weakness, other HEENT: Denies: no symptoms, eye pain, blurred vision, tearing, double vision, ear pain, ear discharge, nose pain, nose congestion, throat pain, throat swelling, mouth pain, mouth swelling, other Cardiovascular: Denies: no symptoms, chest pain, edema, irregular heart rate, lightheadedness, palpitations, syncope, other Respiratory: Denies: no symptoms, cough, shortness of breath, SOB with excertion, SOB at rest, sputum, wheezing, other Gastrointestinal/Abdominal: Denies: no symptoms, abdomen distended, abdominal pain, black stools, tarry stools, blood in stool, constipated, diarrhea, difficulty swallowing, nausea, poor appetite, poor fluid intake, rectal bleeding, vomiting, other Genitourinary: Denies: no symptoms, burning, discharge, frequency, flank pain, hematuria, incontinence, pain, urgency, other Neurologic/Psychiatric: Denies: no symptoms, anxiety, depressed, emotional problems, headache, numbness, paresthesia, pre-existing deficit, seizure, t ingling, tremors, weakness, other Endocrine: Denies: no symptoms, excessive sweating, flushing, intolerance to cold, intolerance to heat, increased hunger, increased thirst, increased urine, unexplained weight gain, unexplained weight loss, other Allergies: Coded Allergies: PENICILLINS (Verified Allergy, Unknown, 10/25/19) tolerated Ceftriaxone Uncoded Allergies: PENICILLIN (Allergy, Unknown, 11/23/19) Subjective 11/23 came back from [facility] due to lack of bipap capability, hgb 7.5 11/24 labs reviewed, remains sob, with a hgb 8.1, no bleeding, jag salas, hold off prbc 11/25 labs are noted, for egd and peg in the am, jag salas, on nc 11/27 getting 3l nc overnight, has been refusing bipap unfortunately, hgb stable 11/28 labs noted, with gtube feeds, again this am refusing bipap 11/29 is on 2l nc, with gtube feeds, hgb 9.5, no bleeding 11/30 labs are noted, no bleeding, on gtube feeds, on 2l nc 12/01 meds noted, no bleeding, hgb 7.9 yesterday, on nc 12/02 is on nepro and on 2l, hgb 7.6, c/o itching, have started benadryl q 8h prn 12/04 labs reviewed, coverning for Dr. Chang, no bleeding, meds noted, wants restraints off 12/05 labs are noted, no bleeding, no night sweats, with gtube feeds ongoing 12/06 labs reviewed, no bleeding, meds noted, no major changes, peg+ 12/07 on wrist restraints, gtube was pulled out overnight, no bleedng 12/10 no acute events, nc 2l, bilat wrist restraints, eliquis 12/11 labs are noted, labs reviewed, is on 2l, agitated again 12/12 is awake, alert, no bleeding, meds reviewed, no night sweats, hgb 9.1 12/13 labs reviewed, is on 1l nc, no bleeding, meds noted, hgb 9.6 12/14 on 2l nc, no bleeding, labs noted, meds reviewed, no major changes Objective Objective Current Medications Medications (Trade) Dose Ordered Sig/Cammy Route PRN Reason Start Time Stop Time Status Last Admin Dose Admin Allopurinol (allopurinoL) 300 mg DAILY ORAL 11/26/19 10:30 12/24/19 10:29 12/15/19 08:49 Amiodarone HCl (Cordarone) 200 mg EVERY 12 HOURS ORAL 12/04/19 21:00 03/03/20 20:59 12/15/19 08:50 Amlodipine Besylate (Norvasc) 5 mg Q12HR GT 11/28/19 21:00 12/24/19 10:29 12/15/19 08:50 Apixaban (Eliquis) 2.5 mg BID ORAL 11/26/19 10:30 02/22/20 10:29 12/15/19 08:49 Atorvastatin Calcium (Lipitor) 10 mg BEDTIME ORAL 11/26/19 21:00 12/1/20 20:59 12/14/19 20:52 Chlorhexidine Gluconate (Yi-Hex 2%) 1 applic DAILY@1999 TOPIC 11/26/19 20:00 02/24/20 19:59 12/14/19 20:43 Dextrose (Dextrose 50%) 25 ml Q30M PRN IV Hypoglycemia 12/03/19 10:30 03/02/20 10:29 Dextrose (Dextrose 50%) 50 ml Q30M PRN IV Hypoglycemia 12/03/19 10:30 03/02/20 10:29 Diphenhydramine HCl (Benadryl) 25 mg Q8H PRN NG Itching 12/03/19 09:30 01/02/20 09:29 12/14/19 23:19 Docusate Sodium (Colace) 100 mg THREE TIMES A DAY NG 11/28/19 13:00 12/28/19 12:59 12/15/19 08:49 Epoetin William (Epoetin William(ESRD on dialysis)) 10,000 unit SUBQ 12/01/19 21:00 02/29/20 20:59 12/13/19 20:09 Insulin Aspart (NovoLOG) Q6HR SUBQ 12/03/19 12:00 03/02/20 11:59 12/15/19 05:45 Lansoprazole (Prevacid) 30 mg DAILY GT 11/28/19 10:45 12/28/19 10:44 12/15/19 08:49 Metoprolol Tartrate (Lopressor) 12.5 mg Q12HR GT 11/29/19 09:00 02/27/20 08:59 12/15/19 08:50 Morphine Sulfate (Morphine 10mg/ 5ml Oral Soln) 1 mg Q6H PRN ORAL For Pain 12/14/19 14:29 12/21/19 14:28 12/15/19 06:16 Sennosides (Senokot) 8.6 mg DAILY PRN ORAL Constipation 11/26/19 10:30 12/26/19 10:29 Last 24 Hour Vital Signs Date Time Temp Pulse Resp B/P (MAP) Pulse Ox O2 Delivery O2 Flow Rate FiO2 12/15/19 09:00 97.8 67 18 131/47 (75) 100 12/15/19 09:00 Nasal Cannula 1.0 12/15/19 08:50 67 131/47 12/15/19 08:50 67 131/47 12/15/19 06:46 98.0 12/15/19 04:00 98.0 62 18 130/52 (78) 97 12/15/19 00:00 97.7 68 16 138/46 (76) 97 12/14/19 21:15 97.0 12/14/19 21:00 Nasal Cannula 1.0 12/14/19 20:54 59 103/50 12/14/19 20:53 59 103/50 12/14/19 20:19 98 Nasal Cannula 1.0 24 12/14/19 20:00 97.4 59 17 103/50 (67) 97 12/14/19 16:00 97.0 57 19 104/39 (60) 98 12/14/19 12:00 98.0 69 19 130/63 (85) 98 12/14/19 09:00 63 126/58 12/14/19 09:00 63 126/58 12/14/19 09:00 Nasal Cannula 1.0 12/14/19 08:00 98.2 63 20 126/58 (80) 97 12/14/19 04:00 98.2 58 20 122/45 (70) 96 12/14/19 00:00 98.3 66 18 137/54 (81) 95 12/13/19 22:38 Nasal Cannula 1.0 12/13/19 20:09 79 133/80 12/13/19 20:09 79 133/80 12/13/19 20:00 98.1 72 18 146/50 (82) 95 12/13/19 16:00 98.0 79 18 133/80 (97) 99 12/13/19 12:00 97.7 74 18 136/72 (93) 99 Intake and Output 12/14/19 12/15/19 19:00 07:00 Intake Total 180 ml Output Total 3000 ml 150 ml Balance -2820 ml -150 ml Intake Free Water 60 ml Tube Feeding 120 ml Output Urine Total 150 ml Hemodialysis UF 3000 ml # Voids 1 # Bowel Movements 1 Labs Test 12/12/19 11:18 12/12/19 16:44 12/13/19 00:14 9/21/20 05:41 POC Whole Blood Glucose 199 MG/DL (74-106) 123 MG/DL (74-106) White Blood Count 9.3 K/UL (4.8-10.8) Red Blood Count 3.22 M/UL (4.70-6.10) Hemoglobin 9.1 G/DL (14.2-18.0) Hematocrit 29.5 % (42.0-52.0) Mean Corpuscular Volume 92 FL (80-99) Mean Corpuscular Hemoglobin 28.3 PG (27.0-31.0) Mean Corpuscular Hemoglobin Concent 30.8 G/DL (32.0-36.0) Red Cell Distribution Width 16.4 % (11.6-14.8) Platelet Count 355 K/UL (150-450) Mean Platelet Volume 6.1 FL (6.5-10.1) Neutrophils (%) (Auto) 68.4 % (45.0-75.0) Lymphocytes (%) (Auto) 25.0 % (20.0-45.0) Monocytes (%) (Auto) 4.5 % (1.0-10.0) Eosinophils (%) (Auto) 1.4 % (0.0-3.0) Basophils (%) (Auto) 0.8 % (0.0-2.0) Sodium Level 134 MMOL/L (136-145) Potassium Level 4.8 MMOL/L (3.5-5.1) Chloride Level 99 MMOL/L (98-107) Carbon Dioxide Level 27 MMOL/L (21-32) Anion Gap 8 mmol/L (5-15) Blood Urea Nitrogen 71 mg/dL (7-18) Creatinine 3.8 MG/DL (0.55-1.30) Estimat Glomerular Filtration Rate 15.4 mL/min (>60) Glucose Level 140 MG/DL (74-106) Calcium Level 9.0 MG/DL (8.5-10.1) Phosphorus Level 2.7 MG/DL (2.5-4.9) Total Bilirubin 0.4 MG/DL (0.2-1.0) Aspartate Amino Transf (AST/SGOT) 20 U/L (15-37) Alanine Aminotransferase (ALT/SGPT) 14 U/L (12-78) Alkaline Phosphatase 163 U/L (46-116) Total Protein 6.7 G/DL (6.4-8.2) Albumin 2.5 G/DL (3.4-5.0) Globulin 4.2 g/dL Albumin/Globulin Ratio 0.6 (1.0-2.7) Test 12/13/19 12:32 12/13/19 17:55 12/14/19 00:20 12/14/19 04:50 POC Whole Blood Glucose 183 MG/DL (74-106) 185 MG/DL (74-106) 148 MG/DL (74-106) 133 MG/DL (74-106) Test 12/14/19 05:30 12/14/19 11:14 12/15/19 05:39 White Blood Count 9.7 K/UL (4.8-10.8) Red Blood Count 3.40 M/UL (4.70-6.10) Hemoglobin 9.6 G/DL (14.2-18.0) Hematocrit 31.0 % (42.0-52.0) Mean Corpuscular Volume 91 FL (80-99) Mean Corpuscular Hemoglobin 28.2 PG (27.0-31.0) Mean Corpuscular Hemoglobin Concent 31.0 G/DL (32.0-36.0) Red Cell Distribution Width 17.0 % (11.6-14.8) Platelet Count 367 K/UL (150-450) Mean Platelet Volume 6.5 FL (6.5-10.1) Neutrophils (%) (Auto) 72.0 % (45.0-75.0) Lymphocytes (%) (Auto) 20.4 % (20.0-45.0) Monocytes (%) (Auto) 5.1 % (1.0-10.0) Eosinophils (%) (Auto) 1.6 % (0.0-3.0) Basophils (%) (Auto) 0.9 % (0.0-2.0) Sodium Level 134 MMOL/L (136-145) Potassium Level 5.1 MMOL/L (3.5-5.1) Chloride Level 98 MMOL/L (98-107) Carbon Dioxide Level 28 MMOL/L (21-32) Anion Gap 8 mmol/L (5-15) Blood Urea Nitrogen 90 mg/dL (7-18) Creatinine 4.5 MG/DL (0.55-1.30) Estimat Glomerular Filtration Rate 12.6 mL/min (>60) Glucose Level 125 MG/DL (74-106) Uric Acid 4.0 MG/DL (2.6-7.2) Calcium Level 9.3 MG/DL (8.5-10.1) Phosphorus Level 4.5 MG/DL (2.5-4.9) Total Bilirubin 0.5 MG/DL (0.2-1.0) Aspartate Amino Transf (AST/SGOT) 21 U/L (15-37) Alanine Aminotransferase (ALT/SGPT) 15 U/L (12-78) Alkaline Phosphatase 171 U/L (46-116) C-Reactive Protein, Quantitative 2.1 mg/dL (0.00-0.90) Total Protein 7.3 G/DL (6.4-8.2) Albumin 2.8 G/DL (3.4-5.0) Globulin 4.5 g/dL Albumin/Globulin Ratio 0.6 (1.0-2.7) POC Whole Blood Glucose 167 MG/DL (74-106) 176 MG/DL (74-106) Height (Feet): 5 Height (Inches): 5.00 Weight (Pounds): 169 Objective GENERAL: Not in acute distress. HEENT: ncat PULMONARY: Decreased breath sounds. ++ bipap v nc+ CHEST: ++permacath right chest CARDIOVASCULAR: Regular rate. No S3 or S4. ABDOMEN: Soft, nontender, nondistended.++reyes in site of old gtube EXTREMITIES: 1+ edema. No cyanosis, swelling, or edema. 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 Melvin Rizzo MD Dec 15, 2019 10:08
[2019-12-15 12:00] VITALS: BP 123/48
--- NOTE | 2019-12-15 14:35 | Cardiac Electrophysiology PN ---
Assessment/Plan Assessment/Plan 1. Atrial flutter. 12-lead EKG is typical atrial flutter. Echo EF 55%. Ruled out for IA protocol. Continue Amiodarone 200 bid, metoprolol 12.5 mg b.i.d. and Eliquis. 2. Hypertension, on metoprolol 12.5 mg bid ,amlodipine 5 mg b.i.d. and hemodialysis. 3. Hyperlipidemia, on Lipitor. 4. End-stage renal disease, on hemodialysis. 5. Diabetes on insulin. 6. DNR/DNI status 7. COPD, off BiPAP. 8. Peripheral vascular disease, status post bilateral transmetatarsal amputation. 9. Dysphagia, S/P PEG DW RN Subjective Subjective Confused in restraints. PEG feeding Objective Last 24 Hour Vital Signs Date Time Temp Pulse Resp B/P (MAP) Pulse Ox O2 Delivery O2 Flow Rate FiO2 12/15/19 12:00 97.6 60 19 123/48 (73) 98 12/15/19 09:00 97.8 67 18 131/47 (75) 100 12/15/19 09:00 Nasal Cannula 1.0 12/15/19 08:50 67 131/47 12/15/19 08:50 67 131/47 12/15/19 06:46 98.0 12/15/19 04:00 98.0 62 18 130/52 (78) 97 12/15/19 00:00 97.7 68 16 138/46 (76) 97 12/14/19 21:15 97.0 12/14/19 21:00 Nasal Cannula 1.0 12/14/19 20:54 59 103/50 12/14/19 20:53 59 103/50 12/14/19 20:19 98 Nasal Cannula 1.0 24 12/14/19 20:00 97.4 59 17 103/50 (67) 97 12/14/19 16:00 97.0 57 19 104/39 (60) 98 Intake and Output 12/14/19 12/15/19 19:00 07:00 Intake Total 180 ml Output Total 3000 ml 150 ml Balance -2820 ml -150 ml Intake Free Water 60 ml Tube Feeding 120 ml Output Urine Total 150 ml Hemodialysis UF 3000 ml # Voids 1 # Bowel Movements 1 Laboratory Tests Test 12/15/19 05:39 POC Whole Blood Glucose 176 MG/DL (74-106) H Objective NECK: No JVD. LUNGS: Clear. He has dialysis access in the right IJ. CARDIOVASCULAR: Irregular S1 and S2 with no gallop. ABDOMEN: Status post G-tube. EXTREMITIES: Status post bilateral transmetatarsal amputation. Chris Valentin MD Dec 15, 2019 14:35
[2019-12-15 16:00] VITALS: BP 121/51
[2019-12-15 20:00] VITALS: BP 104/40
[2019-12-15] MEDS: Dyna-Hex 2% Top Sol 2oz TOPIC SCH (20:48)
[2019-12-15] MEDS: Epoetin Alfa-EPBX(ESRD on dialysis)10,000 unit/ml vial SUBQ SCH (21:56)
--- NOTE | 2019-12-15 22:19 | General Progress Note ---
Subjective Constitutional: Reports: no symptoms Cardiovascular: Reports: no symptoms, other - Mild shortness of breath Respiratory: Reports: no symptoms Gastrointestinal/Abdominal: Reports: no symptoms Genitourinary: Reports: no symptoms Neurologic/Psychiatric: Reports: no symptoms Endocrine: Reports: no symptoms Allergies: Coded Allergies: PENICILLINS (Verified Allergy, Unknown, 10/25/19) tolerated Ceftriaxone Uncoded Allergies: PENICILLIN (Allergy, Unknown, 11/23/19) Objective Last 24 Hour Vital Signs Date Time Temp Pulse Resp B/P (MAP) Pulse Ox O2 Delivery O2 Flow Rate FiO2 12/15/19 21:19 98.8 12/15/19 21:00 Nasal Cannula 1.0 12/15/19 20:50 66 104/40 12/15/19 20:49 66 104/40 12/15/19 20:00 98.4 66 19 104/40 (61) 98 12/15/19 16:00 98.8 64 17 121/51 (74) 97 12/15/19 12:00 97.6 60 19 123/48 (73) 98 12/15/19 09:00 97.8 67 18 131/47 (75) 100 12/15/19 09:00 Nasal Cannula 1.0 12/15/19 08:50 67 131/47 12/15/19 08:50 67 131/47 12/15/19 06:46 98.0 12/15/19 04:00 98.0 62 18 130/52 (78) 97 12/15/19 00:00 97.7 68 16 138/46 (76) 97 Intake and Output 12/14/19 12/15/19 19:00 07:00 Intake Total 180 ml Output Total 3000 ml 150 ml Balance -2820 ml -150 ml Intake Free Water 60 ml Tube Feeding 120 ml Output Urine Total 150 ml Hemodialysis UF 3000 ml # Voids 1 # Bowel Movements 1 Laboratory Tests 12/15/19 05:39: POC Whole Blood Glucose 176H 12/15/19 17:53: POC Whole Blood Glucose [Pending] Height (Feet): 5 Height (Inches): 5.00 Weight (Pounds): 169 General Appearance: WD/WN, no apparent distress, alert, other - Urine confused EENT: normal ENT inspection Neck: supple Cardiovascular: normal peripheral pulses, normal rate, regular rhythm, regularly irregular, no gallop/murmur, no JVD Respiratory/Chest: lungs clear, normal breath sounds, no respiratory distress, no accessory muscle use Abdomen: normal bowel sounds, non tender, soft, no organomegaly, no mass Extremities: non-tender Edema: other - No edema Neurologic: alert Assessment/Plan Status: stable Status Narrative Patient is awake alert afebrile and hemodynamically stable he has multiple problem appears to have a response to each of the long list of problem for which the patient was advised during this admission Patient currently is without any tracheostomy fed by G-tube with near normal rhythm dialysis in spite of the fact that he had does not use BiPAP he appeared to be able to be comfortable with mild shortness of breath and wished to be discharged as soon as possible patient already been approved to [facility] facility into a dialysis program and he will be followed very closely in regard to his need to volume change he will continue on his current medication at the present time his pulmonary cardiology gastroenterology and nephrology issue appears to be stable and respond to the current treatment AYUSH Chang,Ayush JANE Dec 15, 2019 22:19
[2019-12-16] VITALS: BP 133/52
[2019-12-16] MEDS: Morphine Sulfate 10mg/5ml Oral Soln ud ORAL PRN ×2 (03:40→17:40)
[2019-12-16 04:00] VITALS: BP 130/47
[2019-12-16] MEDS: NovoLOG Insulin Flexpen SUBQ SCH ×4 (06:00→17:41)
[2019-12-16 06:24] LABS: BASOPHILS % (AUTO) 0.7 % (0.0-2.0); EOSINOPHILS % (AUTO) 2.1 % (0.0-3.0); HEMATOCRIT 30.5 % (42.0-52.0); HEMOGLOBIN 9.4 G/DL (14.2-18.0); LYMPHOCYTES % (AUTO) 20.4 % (20.0-45.0); MEAN CORPUSCULAR VOLUME 91 FL (80-99); MONOCYTES % (AUTO) 4.7 % (1.0-10.0); PLATELET COUNT 277 K/UL (150-450); RED BLOOD COUNT 3.33 M/UL (4.70-6.10)
[2019-12-16 08:00] VITALS: BP 124/50
[2019-12-16 08:05] LABS: ALBUMIN/GLOBULIN RATIO 0.9 (1.0-2.7); BILIRUBIN,TOTAL 0.4 MG/DL (0.2-1.0); CALCIUM 8.8 MG/DL (8.5-10.1); CREATININE 4.4 MG/DL (0.55-1.30); PHOSPHORUS 5.3 MG/DL (2.5-4.9); POTASSIUM 4.2 MMOL/L (3.5-5.1)
[2019-12-16] MEDS: Metoprolol Tartrate 12.5mg TAB GT SCH ×2 (08:39→22:08)
[2019-12-16] MEDS: Eliquis 2.5mg tablet ORAL SCH ×2 (08:39→17:39)
[2019-12-16] MEDS: Docusate 100mg/10ml Liq NG SCH ×3 (08:39→17:39)
[2019-12-16] MEDS: Amiodarone 200mg tab ORAL SCH ×2 (08:39→22:08)
--- NOTE | 2019-12-16 10:15 | Hematology/Onc Progress Note ---
Assessment/Plan Assessment/Plan ASSESSMENT AND RECOMMENDATIONS: # Anemia of chronic disease due to underlying chronic medical issues, multifactorial --> Anemia w/u has been reviewed. --> no evidence of hemolysis is noted, peripheral smear has been reviewed --> hgb goal is >7, transfuse as needed --> currently remains stable, occult blood negative --> hgb 8.4->8.6->8.3->8->8.2->9.2-->9.2->8.9-->8.1-->8.7>9.4-->8.7-->8->7.8->7.5-->7.4- ->7.5-->8.1-->8-->8.1-->9.5->7.9-->7.6-->7.5-->9.9-->8.8-->9.1->9.6-->9.4 --> 1 unit prbc 12/03 --> some blood loss due to hematuria after inflated reyes pulled 8/6 am --> EPOGEN to continue # Thrombocytopenia is likely due to infection --> plt trend 180-->149-->274 --> on abx as needed --> hep and hiv neg #. Leukocytosis with underlying infectionv stress reaction HISTORY --> per id and better --> for infection, ABX ctx/vanc-->off --> wbc 10-->5.9 # Acute kidney injury r/o potential reversible component --> reviewed meds, those that are renally cleared removed --> as per renal recs, appreciated --> cr 3.5-->4.2-->3.4->3.3 --> Hd started and dw renal # Hypertension, essential --> sbp goal is <140, consider anti-htn as needed --> currently started on hyralazine 25mg po q6h prn sbp >140 # CHF - hx of CHf --> diuresis with lasix as needed --> cardiology recs appreciated prior adm #. Bilateral lower extremity amputee, metatarsal several years ago --> stable #. Atrial fibrillation --> as per cards recs #. Dysphagia s/p peg --> peg pulled out and now with gtube 11/25 #. Hyperkalemia --> kayxelate as needed #. Agitation requires restraints #. Dvt ppx scds --> xarelto=> off-->eliquis-->off-->eliquis The time the note was entered does not necessarily correspond to the time the patient was seen. GREATLY APPRECIATE CONSULTATION. Subjective HEENT: Denies: no symptoms, eye pain, blurred vision, tearing, double vision, ear pain, ear discharge, nose pain, nose congestion, throat pain, throat swelling, mouth pain, mouth swelling, other Cardiovascular: Denies: no symptoms, chest pain, edema, irregular heart rate, lightheadedness, palpitations, syncope, other Respiratory: Denies: no symptoms, cough, shortness of breath, SOB with excertion, SOB at rest, sputum, wheezing, other Gastrointestinal/Abdominal: Denies: no symptoms, abdomen distended, abdominal pain, black stools, tarry stools, blood in stool, constipated, diarrhea, difficulty swallowing, nausea, poor appetite, poor fluid intake, rectal bleeding, vomiting, other Genitourinary: Denies: no symptoms, burning, discharge, frequency, flank pain, hematuria, incontinence, pain, urgency, other Neurologic/Psychiatric: Denies: no symptoms, anxiety, depressed, emotional problems, headache, numbness, paresthesia, pre-existing deficit, seizure, tingling, tremors, weakness, other Endocrine: Denies: no symptoms, excessive sweating, flushing, intolerance to cold, intolerance to heat, increased hunger, increased thirst, increased urine, unexplained weight gain, unexplained weight loss, other Allergies: Coded Allergies: PENICILLINS (Verified Allergy, Unknown, 10/25/19) tolerated Ceftriaxone Uncoded Allergies: PENICILLIN (Allergy, Unknown, 11/23/19) Subjective 11/23 came back from new due to lack of bipap capability, hgb 7.5 11/24 labs reviewed, remains sob, with a hgb 8.1, no bleeding, jag salas, hold off prbc 11/25 labs are noted, for egd and peg in the am, jag rn, on nc 11/27 getting 3l nc overnight, has been refusing bipap unfortunately, hgb stable 11/28 labs noted, with gtube feeds, again this am refusing bipap 11/29 is on 2l nc, with gtube feeds, hgb 9.5, no bleeding 11/30 labs are noted, no bleeding, on gtube feeds, on 2l nc 12/01 meds noted, no bleeding, hgb 7.9 yesterday, on nc 12/02 is on nepro and on 2l, hgb 7.6, c/o itching, have started benadryl q 8h prn 12/04 labs reviewed, coverning for Dr. Chang, no bleeding, meds noted, wants restraints off 12/05 labs are noted, no bleeding, no night sweats, with gtube feeds ongoing 12/06 labs reviewed, no bleeding, meds noted, no major changes, peg+ 12/07 on wrist restraints, gtube was pulled out overnight, no bleedng 12/10 no acute events, nc 2l, bilat wrist restraints, eliquis 12/11 labs are noted, labs reviewed, is on 2l, agitated again 12/12 is awake, alert, no bleeding, meds reviewed, no night sweats, hgb 9.1 12/13 labs reviewed, is on 1l nc, no bleeding, meds noted, hgb 9.6 12/14 on 2l nc, no bleeding, labs noted, meds reviewed, no major changes 12/15 is on 1l nc, no bleeding, meds noted, no bleeding, dw rn Objective Objective Current Medications Medications (Trade) Dose Ordered Sig/Cammy Route PRN Reason Start Time Stop Time Status Last Admin Dose Admin Allopurinol (allopurinoL) 300 mg DAILY ORAL 11/26/19 10:30 12/24/19 10:29 12/16/19 08:39 Amiodarone HCl (Cordarone) 200 mg EVERY 12 HOURS ORAL 12/04/19 21:00 03/03/20 20:59 12/16/19 08:39 Amlodipine Besylate (Norvasc) 5 mg Q12HR GT 11/28/19 21:00 12/24/19 10:29 12/16/19 08:40 Apixaban (Eliquis) 2.5 mg BID ORAL 11/26/19 10:30 02/22/20 10:29 12/16/19 08:39 Atorvastatin Calcium (Lipitor) 10 mg BEDTIME ORAL 11/26/19 21:00 02/22/20 20:59 12/15/19 20:48 Chlorhexidine Gluconate (Yi-Hex 2%) 1 applic DAILY@1999 TOPIC 11/26/19 20:00 02/24/20 19:59 12/15/19 20:48 Dextrose (Dextrose 50%) 25 ml Q30M PRN IV Hypoglycemia 12/03/19 10:30 03/02/20 10:29 Dextrose (Dextrose 50%) 50 ml Q30M PRN IV Hypoglycemia 12/03/19 10:30 03/02/20 10:29 Diphenhydramine HCl (Benadryl) 25 mg Q8H PRN NG Itching 12/03/19 09:30 01/02/20 09:29 12/14/19 23:19 Docusate Sodium (Colace) 100 mg THREE TIMES A DAY NG 11/28/19 13:00 12/28/19 12:59 12/16/19 08:39 Epoetin William (Epoetin William(ESRD on dialysis)) 10,000 unit FRI-FRI-FRI SUBQ 12/01/19 21:00 02/29/20 20:59 12/15/19 21:56 Insulin Aspart (NovoLOG) Q6HR SUBQ 12/03/19 12:00 03/02/20 11:59 12/15/19 17:56 Lansoprazole (Prevacid) 30 mg DAILY GT 11/28/19 10:45 12/28/19 10:44 12/16/19 08:39 Metoprolol Tartrate (Lopressor) 12.5 mg Q12HR GT 11/29/19 09:00 02/27/20 08:59 12/16/19 08:39 Morphine Sulfate (Morphine 10mg/ 5ml Oral Soln) 1 mg Q6H PRN ORAL For Pain 12/14/19 14:29 12/21/19 14:28 12/16/19 03:40 Sennosides (Senokot) 8.6 mg DAILY PRN ORAL Constipation 11/26/19 10:30 12/26/19 10:29 Last 24 Hour Vital Signs Date Time Temp Pulse Resp B/P (MAP) Pulse Ox O2 Delivery O2 Flow Rate FiO2 12/16/19 09:00 Nasal Cannula 1.0 12/16/19 08:40 64 124/50 12/16/19 08:39 64 124/50 12/16/19 08:00 97.7 64 18 124/50 (74) 97 12/16/19 07:26 98 Nasal Cannula 2.0 28 12/16/19 04:00 97.7 66 20 130/47 (74) 98 12/16/19 04:00 98.2 12/16/19 00:00 98.2 66 19 133/52 (79) 95 12/15/19 21:19 98.8 12/15/19 21:00 Nasal Cannula 1.0 12/15/19 20:50 66 104/40 12/15/19 20:49 66 104/40 12/15/19 20:19 98 Nasal Cannula 1.0 24 12/15/19 20:00 98.4 66 19 104/40 (61) 98 12/15/19 16:00 98.8 64 17 121/51 (74) 97 12/15/19 12:00 97.6 60 19 123/48 (73) 98 12/15/19 09:00 97.8 67 18 131/47 (75) 100 12/15/19 09:00 Nasal Cannula 1.0 12/15/19 08:50 67 131/47 12/15/19 08:50 67 131/47 12/15/19 06:46 98.0 12/15/19 04:00 98.0 62 18 130/52 (78) 97 12/15/19 00:00 97.7 68 16 138/46 (76) 97 12/14/19 21:15 97.0 12/14/19 21:00 Nasal Cannula 1.0 12/14/19 20:54 59 103/50 12/14/19 20:53 59 103/50 12/14/19 20:19 98 Nasal Cannula 1.0 24 12/14/19 20:00 97.4 59 17 103/50 (67) 97 12/14/19 16:00 97.0 57 19 104/39 (60) 98 12/14/19 12:00 98.0 69 19 130/63 (85) 98 Intake and Output 12/15/19 12/16/19 19:00 07:00 Intake Total 180 ml Balance 180 ml Intake Free Water 60 ml Tube Feeding 120 ml # Voids 1 Labs Test 12/13/19 12:32 12/13/19 17:55 12/14/19 00:20 12/14/19 04:50 POC Whole Blood Glucose 183 MG/DL (74-106) 185 MG/DL (74-106) 148 MG/DL (74-106) 133 MG/DL (74-106) Test 12/14/19 05:30 12/14/19 11:14 12/14/19 17:25 12/15/19 05:39 White Blood Count 9.7 K/UL (4.8-10.8) Red Blood Count 3.40 M/UL (4.70-6.10) Hemoglobin 9.6 G/DL (14.2-18.0) Hematocrit 31.0 % (42.0-52.0) Mean Corpuscular Volume 91 FL (80-99) Mean Corpuscular Hemoglobin 28.2 PG (27.0-31.0) Mean Corpuscular Hemoglobin Concent 31.0 G/DL (32.0-36.0) Red Cell Distribution Width 17.0 % (11.6-14.8) Platelet Count 367 K/UL (150-450) Mean Platelet Volume 6.5 FL (6.5-10.1) Neutrophils (%) (Auto) 72.0 % (45.0-75.0) Lymphocytes (%) (Auto) 20.4 % (20.0-45.0) Monocytes (%) (Auto) 5.1 % (1.0-10.0) Eosinophils (%) (Auto) 1.6 % (0.0-3.0) Basophils (%) (Auto) 0.9 % (0.0-2.0) Sodium Level 134 MMOL/L (136-145) Potassium Level 5.1 MMOL/L (3.5-5.1) Chloride Level 98 MMOL/L (98-107) Carbon Dioxide Level 28 MMOL/L (21-32) Anion Gap 8 mmol/L (5-15) Blood Urea Nitrogen 90 mg/dL (7-18) Creatinine 4.5 MG/DL (0.55-1.30) Estimat Glomerular Filtration Rate 12.6 mL/min (>60) Glucose Level 125 MG/DL (74-106) Uric Acid 4.0 MG/DL (2.6-7.2) Calcium Level 9.3 MG/DL (8.5-10.1) Phosphorus Level 4.5 MG/DL (2.5-4.9) Total Bilirubin 0.5 MG/DL (0.2-1.0) Aspartate Amino Transf (AST/SGOT) 21 U/L (15-37) Alanine Aminotransferase (ALT/SGPT) 15 U/L (12-78) Alkaline Phosphatase 171 U/L (46-116) C-Reactive Protein, Quantitative 2.1 mg/dL (0.00-0.90) Total Protein 7.3 G/DL (6.4-8.2) Albumin 2.8 G/DL (3.4-5.0) Globulin 4.5 g/dL Albumin/Globulin Ratio 0.6 (1.0-2.7) POC Whole Blood Glucose 167 MG/DL (74-106) 176 MG/DL (74-106) Test 12/15/19 11:45 12/15/19 17:53 12/16/19 00:14 12/16/19 05:45 POC Whole Blood Glucose 124 MG/DL (74-106) 166 MG/DL (74-106) White Blood Count 10.0 K/UL (4.8-10.8) Red Blood Count 3.33 M/UL (4.70-6.10) Hemoglobin 9.4 G/DL (14.2-18.0) Hematocrit 30.5 % (42.0-52.0) Mean Corpuscular Volume 91 FL (80-99) Mean Corpuscular Hemoglobin 28.2 PG (27.0-31.0) Mean Corpuscular Hemoglobin Concent 30.8 G/DL (32.0-36.0) Red Cell Distribution Width 17.0 % (11.6-14.8) Platelet Count 277 K/UL (150-450) Mean Platelet Volume 6.2 FL (6.5-10.1) Neutrophils (%) (Auto) 72.0 % (45.0-75.0) Lymphocytes (%) (Auto) 20.4 % (20.0-45.0) Monocytes (%) (Auto) 4.7 % (1.0-10.0) Eosinophils (%) (Auto) 2.1 % (0.0-3.0) Basophils (%) (Auto) 0.7 % (0.0-2.0) Sodium Level 132 MMOL/L (136-145) Potassium Level 4.2 MMOL/L (3.5-5.1) Chloride Level 93 MMOL/L (98-107) Carbon Dioxide Level 30 MMOL/L (21-32) Anion Gap 9 mmol/L (5-15) Blood Urea Nitrogen 79 mg/dL (7-18) Creatinine 4.4 MG/DL (0.55-1.30) Estimat Glomerular Filtration Rate 13.0 mL/min (>60) Glucose Level 167 MG/DL (74-106) Uric Acid 3.0 MG/DL (2.6-7.2) Calcium Level 8.8 MG/DL (8.5-10.1) Phosphorus Level 5.3 MG/DL (2.5-4.9) Total Bilirubin 0.4 MG/DL (0.2-1.0) Aspartate Amino Transf (AST/SGOT) 20 U/L (15-37) Alanine Aminotransferase (ALT/SGPT) 12 U/L (12-78) Alkaline Phosphatase 180 U/L (46-116) C-Reactive Protein, Quantitative 2.5 mg/dL (0.00-0.90) Pro-B-Type Natriuretic Peptide 7910 pg/mL (0-125) Total Protein 6.3 G/DL (6.4-8.2) Albumin 3.0 G/DL (3.4-5.0) Globulin 3.3 g/dL Albumin/Globulin Ratio 0.9 (1.0-2.7) Height (Feet): 5 Height (Inches): 5.00 Weight (Pounds): 169 Objective GENERAL: Not in acute distress. HEENT: ncat PULMONARY: Decreased breath sounds. ++ bipap v nc+ CHEST: ++permacath right chest CARDIOVASCULAR: Regular rate. No S3 or S4. ABDOMEN: Soft, nontender, nondistended.++reyes in site of old gtube EXTREMITIES: 1+ edema. No cyanosis, swelling, or edema. 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 Melvin Rizzo MD Dec 16, 2019 10:15
--- NOTE | 2019-12-16 11:07 | Pulmonology Progress Note ---
Jeremi Hannaet ACTING PROFESSOR 12/16/19 1107: Subjective ROS Limited/Unobtainable: No Allergies: Coded Allergies: PENICILLINS (Verified Allergy, Unknown, 10/25/19) tolerated Ceftriaxone Uncoded Allergies: PENICILLIN (Allergy, Unknown, 11/23/19) All Systems: reviewed and negative except above Subjective on MS floor condition the same on O2 2 L via NC, pulse ox stable off BiPAP and continued to decline it no signs of resp distress code status changed to DNR/DNI on 12/06 by attending due to family wishes c/o abd pain 12/13, GI follows no diarrhea, HH remains at baseline tolerates GT feeding pain medications regimen optimized dc plan in process apparently challenging placement Objective Last 24 Hour Vital Signs Date Time Temp Pulse Resp B/P (MAP) Pulse Ox O2 Delivery O2 Flow Rate FiO2 12/16/19 09:00 Nasal Cannula 1.0 12/16/19 08:40 64 124/50 12/16/19 08:39 64 124/50 12/16/19 08:00 97.7 64 18 124/50 (74) 97 12/16/19 07:26 98 Nasal Cannula 2.0 28 12/16/19 04:00 97.7 66 20 130/47 (74) 98 12/16/19 04:00 98.2 12/16/19 00:00 98.2 66 19 133/52 (79) 95 12/15/19 21:19 98.8 12/15/19 21:00 Nasal Cannula 1.0 12/15/19 20:50 66 104/40 12/15/19 20:49 66 104/40 12/15/19 20:19 98 Nasal Cannula 1.0 24 12/15/19 20:00 98.4 66 19 104/40 (61) 98 12/15/19 16:00 98.8 64 17 121/51 (74) 97 12/15/19 12:00 97.6 60 19 123/48 (73) 98 Intake and Output 12/15/19 12/16/19 19:00 07:00 Intake Total 180 ml Balance 180 ml Intake Free Water 60 ml Tube Feeding 120 ml # Voids 1 Objective General Appearance: alert , confused, but more awake [place] speaking male, Lines, tubes and drains: peripheral HEENT: normocephalic, atraumatic, anicteric, O2 via NC Neck: supple Respiratory/Chest: lungs clear, no respiratory distress Cardiovascular/Chest: normal rate, Abdomen: non tender, soft, feeding tube - G tube Extremities: BL foot TMA Neurologic: abnormal gait, alert, confused, responsive Musculoskeletal: atrophy - BLE Laboratory Tests 12/15/19 11:45: POC Whole Blood Glucose 124H 12/15/19 17:53: POC Whole Blood Glucose [Pending] 12/16/19 00:14: POC Whole Blood Glucose 166H 12/16/19 05:45: White Blood Count 10.0, Red Blood Count 3.33L, Hemoglobin 9.4L, Hematocrit 30.5L , Mean Corpuscular Volume 91, Mean Corpuscular Hemoglobin 28.2, Mean Corpuscular Hemoglobin Concent 30.8L, Red Cell Distribution Width 17.0H, Platelet Count 277, Mean Platelet Volume 6.2L, Neutrophils (%) (Auto) 72.0, Lymphocytes (%) (Auto) 20.4, Monocytes (%) (Auto) 4.7, Eosinophils (%) (Auto) 2.1, Basophils (%) (Auto) 0.7, Sodium Level 132L, Potassium Level 4.2, Chloride Level 93L, Carbon Dioxide Level 30, Anion Gap 9, Blood Urea Nitrogen 79H, Creatinine 4.4H, Estimat Glomerular Filtration Rate 13.0, Glucose Level 167H, Uric Acid 3.0, Calcium Level 8.8, Phosphorus Level 5.3H, Total Bilirubin 0.4, Aspartate Amino Transf (AST/SGOT) 20, Alanine Aminotransferase (ALT/SGPT) 12, Alkaline Phosphatase 180H , C-Reactive Protein, Quantitative 2.5H, Pro-B-Type Natriuretic Peptide 7910H, Total Protein 6.3L, Albumin 3.0L, Globulin 3.3, Albumin/Globulin Ratio 0.9L Current Medications Medications (Trade) Dose Ordered Sig/Cammy Route PRN Reason Start Time Stop Time Status Last Admin Dose Admin Allopurinol (allopurinoL) 300 mg DAILY ORAL 11/26/19 10:30 12/24/19 10:29 12/16/19 08:39 Amiodarone HCl (Cordarone) 200 mg EVERY 12 HOURS ORAL 12/04/19 21:00 03/03/20 20:59 12/16/19 08:39 Amlodipine Besylate (Norvasc) 5 mg Q12HR GT 11/28/19 21:00 12/24/19 10:29 12/16/19 08:40 Apixaban (Eliquis) 2.5 mg BID ORAL 11/26/19 10:30 02/22/20 10:29 12/16/19 08:39 Atorvastatin Calcium (Lipitor) 10 mg BEDTIME ORAL 11/26/19 21:00 02/22/20 20:59 12/15/19 20:48 Chlorhexidine Gluconate (Yi-Hex 2%) 1 applic DAILY@1999 TOPIC 11/26/19 20:00 02/24/20 19:59 12/15/19 20:48 Dextrose (Dextrose 50%) 25 ml Q30M PRN IV Hypoglycemia 12/03/19 10:30 03/02/20 10:29 Dextrose (Dextrose 50%) 50 ml Q30M PRN IV Hypoglycemia 12/03/19 10:30 03/02/20 10:29 Diphenhydramine HCl (Benadryl) 25 mg Q8H PRN NG Itching 12/03/19 09:30 01/02/20 09:29 12/14/19 23:19 Docusate Sodium (Colace) 100 mg THREE TIMES A DAY NG 11/28/19 13:00 12/28/19 12:59 12/16/19 08:39 Epoetin William (Epoetin William(ESRD on dialysis)) 10,000 unit SUBQ 12/01/19 21:00 02/29/20 20:59 12/15/19 21:56 Insulin Aspart (NovoLOG) Q6HR SUBQ 12/03/19 12:00 03/02/20 11:59 12/15/19 17:56 Lansoprazole (Prevacid) 30 mg DAILY GT 11/28/19 10:45 12/28/19 10:44 12/16/19 08:39 Metoprolol Tartrate (Lopressor) 12.5 mg Q12HR GT 11/29/19 09:00 02/27/20 08:59 12/16/19 08:39 Morphine Sulfate (Morphine 10mg/ 5ml Oral Soln) 1 mg Q6H PRN ORAL For Pain 12/14/19 14:29 12/21/19 14:28 12/16/19 03:40 Sennosides (Senokot) 8.6 mg DAILY PRN ORAL Constipation 11/26/19 10:30 12/26/19 10:29 Assessment/Plan Assessment/Plan ASSESSMENT Prior acute hypoxemic hypercapnic respiratory failure requiring BiPAP Chronic CO2 retention Possible DAYANA Aspiration risk s/p recent PNA Dysphagia , s/p PEG , pulled out, s/p replacement of PEG 11/16 Acute kidney injury on chronic kidney disease, requiring start of HD 10/30 Anemia of chronic kidney disease PAF/flutter- converted to SR Diabetes mellitus HTN PVD with hx of bilateral foot MTA Refusal of care PLAN OF CARE [place] floor BiPAP at HS and prn , refusing again currently on O2 3 L via NC titrate O2, pulm toilet patient likely has DAYANA. recommend sleep study as OP CXR 11/28 mild vascular congestion and small bilateral pleural effusions, slightly improved when compared to October 31, 2019. No pneumothorax. Cardiomegaly. Calcified aorta. ABG prn rapid COVID NGT, BiPAP prn and HS-continued to refuse developed A flutter/ fib 12/03 seen by cardio already spontaneously converter to SR on a/c with Eliquis, rate controlled with BB ECHO with pEF 55-60% rate control with BB, HR stable on chronic a/c , was on hold for PEG, Eliquis afterwards resumed BP management with CCB and BB, optimize as needed continue statin ethics eval if pt can refuse BiPAP ( patient with dementia, confusion), daughter wants BiPAP and unclear how he refused if was on restraints? in our opinion BiPAP should be on standing order and available in the facility when patient will be transferred need formal polysomnogram to be done as OP bioethics eval appreciated, done 11/25 . per bioethics: pt with diminished capacity and does not understand the consequences of refusing bi-pap, yet it seems inhumane to force him to endure it recommended that he should be discharged to the SNF on nasal canula with instru ctions not to be sent back to the acute care hospital for refusal to accept bi- pap. bioethics offered to have a family conference to explain the reasoning if the family is willing to speak with us. SHERRIE spoke with daughter and ( through RN content strategist) re further GOC and code status 11/29 daughter and decided on DNR/DNI status , which was relayed to me by SW 12/02 Dr Pabon spoke with Dr Chang, code status changed on 12/06 to DNR/DNI dc plan to SNF ; SHERRIE discussed with family ( not want [facility]) , ongoing search for the facility completed Rx for PNA on prior admission Venous Duplex BLE 10/25 -> NGT aspir precautions, TF via GT f protein supplements GI follows pain management HH remains at baseline tolerates GT feeding bowel regimen, HD as per nephro recs monitor volumes, renal paramerts, lytes s/p placement of permanent HD catheter R chest 11/07 s/p removal of temporary HD catheter by surgeon prior HgA1c -6.1 hold oral anti-glycemic monitor with goal to keep Hgb above 7 anemia w/up prior noted , heme on board on EPO GI prophayxlis supportive care dc plan in progress, challenging placement case discussed and evaluated by supervising physician Jonathon Pabon MD 12/16/19 1130: Subjective Allergies: Coded Allergies: PENICILLINS (Verified Allergy, Unknown, 10/25/19) tolerated Ceftriaxone Uncoded Allergies: PENICILLIN (Allergy, Unknown, 11/23/19) Assessment/Plan Assessment/Plan Patient seen and examined with ACTING PROFESSOR. Agree with above A&P as it reflects our join t deliberations. Reema Hanna NP Dec 16, 2019 11:07 Jonathon Pabon MD Dec 16, 2019 11:30
--- NOTE | 2019-12-16 11:09 | Cardiac Electrophysiology PN ---
Assessment/Plan Assessment/Plan 1. Atrial flutter. 12-lead EKG is typical atrial flutter. Echo EF 55%. Ruled out for PR protocol. Continue Amiodarone 200 bid, metoprolol 12.5 mg b.i.d. and Eliquis. 2. Hypertension, on metoprolol 12.5 mg bid ,amlodipine 5 mg b.i.d. and hemodialysis. 3. Hyperlipidemia, on Lipitor. 4. End-stage renal disease, on hemodialysis. 5. Diabetes on insulin. 6. DNR/DNI 7. COPD, off BiPAP. 8. Peripheral vascular disease, status post bilateral transmetatarsal amputation. 9. S/P PEG DW RN Subjective Subjective Confused in restraints. PEG feeding on Abx. RN at bedside Objective Last 24 Hour Vital Signs Date Time Temp Pulse Resp B/P (MAP) Pulse Ox O2 Delivery O2 Flow Rate FiO2 12/16/19 09:00 Nasal Cannula 1.0 12/16/19 08:40 64 124/50 12/16/19 08:39 64 124/50 12/16/19 08:00 97.7 64 18 124/50 (74) 97 12/16/19 07:26 98 Nasal Cannula 2.0 28 12/16/19 04:00 97.7 66 20 130/47 (74) 98 12/16/19 04:00 98.2 12/16/19 00:00 98.2 66 19 133/52 (79) 95 12/15/19 21:19 98.8 12/15/19 21:00 Nasal Cannula 1.0 12/15/19 20:50 66 104/40 12/15/19 20:49 66 104/40 12/15/19 20:19 98 Nasal Cannula 1.0 24 12/15/19 20:00 98.4 66 19 104/40 (61) 98 12/15/19 16:00 98.8 64 17 121/51 (74) 97 12/15/19 12:00 97.6 60 19 123/48 (73) 98 Intake and Output 12/15/19 12/16/19 19:00 07:00 Intake Total 180 ml Balance 180 ml Intake Free Water 60 ml Tube Feeding 120 ml # Voids 1 Laboratory Tests Test 12/15/19 11:45 12/15/19 17:53 12/16/19 00:14 12/16/19 05:45 POC Whole Blood Glucose 124 MG/DL (74-106) H Pending 166 MG/DL (74-106) H White Blood Count 10.0 K/UL (4.8-10.8) Red Blood Count 3.33 M/UL (4.70-6.10) L Hemoglobin 9.4 G/DL (14.2-18.0) L Hematocrit 30.5 % (42.0-52.0) L Mean Corpuscular Volume 91 FL (80-99) Mean Corpuscular Hemoglobin 28.2 PG (27.0-31.0) Mean Corpuscular Hemoglobin Concent 30.8 G/DL (32.0-36.0) L Red Cell Distribution Width 17.0 % (11.6-14.8) H Platelet Count 277 K/UL (150-450) Mean Platelet Volume 6.2 FL (6.5-10.1) L Neutrophils (%) (Auto) 72.0 % (45.0-75.0) Lymphocytes (%) (Auto) 20.4 % (20.0-45.0) Monocytes (%) (Auto) 4.7 % (1.0-10.0) Eosinophils (%) (Auto) 2.1 % (0.0-3.0) Basophils (%) (Auto) 0.7 % (0.0-2.0) Sodium Level 132 MMOL/L (136-145) L Potassium Level 4.2 MMOL/L (3.5-5.1) Chloride Level 93 MMOL/L (98-107) L Carbon Dioxide Level 30 MMOL/L (21-32) Anion Gap 9 mmol/L (5-15) Blood Urea Nitrogen 79 mg/dL (7-18) H Creatinine 4.4 MG/DL (0.55-1.30) H Estimat Glomerular Filtration Rate 13.0 mL/min (>60) Glucose Level 167 MG/DL (74-106) H Uric Acid 3.0 MG/DL (2.6-7.2) Calcium Level 8.8 MG/DL (8.5-10.1) Phosphorus Level 5.3 MG/DL (2.5-4.9) H Total Bilirubin 0.4 MG/DL (0.2-1.0) Aspartate Amino Transf (AST/SGOT) 20 U/L (15-37) Alanine Aminotransferase (ALT/SGPT) 12 U/L (12-78) Alkaline Phosphatase 180 U/L (46-116) H C-Reactive Protein, Quantitative 2.5 mg/dL (0.00-0.90) H Pro-B-Type Natriuretic Peptide 7910 pg/mL (0-125) H Total Protein 6.3 G/DL (6.4-8.2) L Albumin 3.0 G/DL (3.4-5.0) L Globulin 3.3 g/dL Albumin/Globulin Ratio 0.9 (1.0-2.7) L Objective NECK: No JVD. LUNGS: Clear. He has dialysis access in the right IJ. CARDIOVASCULAR: Irregular S1 and S2 with no gallop. ABDOMEN: Status post G-tube. EXTREMITIES: Status post bilateral transmetatarsal amputation. Chris Valentin MD Dec 16, 2019 11:09
[2019-12-16 12:00] VITALS: BP 121/48
--- NOTE | 2019-12-16 13:55 | General Progress Note ---
Subjective Constitutional: Reports: no symptoms HEENT: Reports: no symptoms Cardiovascular: Reports: no symptoms Respiratory: Reports: no symptoms Gastrointestinal/Abdominal: Reports: other - Complaint of mild abdominal pain that he is unable to localize or give report of the intensity of its timing Genitourinary: Reports: no symptoms Neurologic/Psychiatric: Reports: no symptoms Endocrine: Reports: no symptoms Hematologic/Lymphatic: Reports: no symptoms Allergies: Coded Allergies: PENICILLINS (Verified Allergy, Unknown, 10/25/19) tolerated Ceftriaxone Uncoded Allergies: PENICILLIN (Allergy, Unknown, 11/23/19) Objective Last 24 Hour Vital Signs Date Time Temp Pulse Resp B/P (MAP) Pulse Ox O2 Delivery O2 Flow Rate FiO2 12/16/19 12:00 97.7 62 18 121/48 (72) 96 12/16/19 09:00 Nasal Cannula 1.0 12/16/19 08:40 64 124/50 12/16/19 08:39 64 124/50 12/16/19 08:00 97.7 64 18 124/50 (74) 97 12/16/19 07:26 98 Nasal Cannula 2.0 28 12/16/19 04:00 97.7 66 20 130/47 (74) 98 12/16/19 04:00 98.2 12/16/19 00:00 98.2 66 19 133/52 (79) 95 12/15/19 21:19 98.8 12/15/19 21:00 Nasal Cannula 1.0 12/15/19 20:50 66 104/40 12/15/19 20:49 66 104/40 12/15/19 20:19 98 Nasal Cannula 1.0 24 12/15/19 20:00 98.4 66 19 104/40 (61) 98 12/15/19 16:00 98.8 64 17 121/51 (74) 97 Intake and Output 12/15/19 12/16/19 19:00 07:00 Intake Total 180 ml Balance 180 ml Intake Free Water 60 ml Tube Feeding 120 ml # Voids 1 Laboratory Tests 12/15/19 17:53: POC Whole Blood Glucose [Pending] 12/16/19 00:14: POC Whole Blood Glucose 166H 12/16/19 05:45: White Blood Count 10.0, Red Blood Count 3.33L, Hemoglobin 9.4L, Hematocrit 30.5L , Mean Corpuscular Volume 91, Mean Corpuscular Hemoglobin 28.2, Mean Corpuscular Hemoglobin Concent 30.8L, Red Cell Distribution Width 17.0H, Platelet Count 277, Mean Platelet Volume 6.2L, Neutrophils (%) (Auto) 72.0, Lymphocytes (%) (Auto) 20.4, Monocytes (%) (Auto) 4.7, Eosinophils (%) (Auto) 2.1, Basophils (%) (Auto) 0.7, Sodium Level 132L, Potassium Level 4.2, Chloride Level 93L, Carbon Dioxide Level 30, Anion Gap 9, Blood Urea Nitrogen 79H, Creatinine 4.4H, Estimat Glomerular Filtration Rate 13.0, Glucose Level 167H, Uric Acid 3.0, Calcium Level 8.8, Phosphorus Level 5.3H, Total Bilirubin 0.4, Aspartate Amino Transf (AST/SGOT) 20, Alanine Aminotransferase (ALT/SGPT) 12, Alkaline Phosphatase 180H , C-Reactive Protein, Quantitative 2.5H, Pro-B-Type Natriuretic Peptide 7910H, Total Protein 6.3L, Albumin 3.0L, Globulin 3.3, Albumin/Globulin Ratio 0.9L Height (Feet): 5 Height (Inches): 5.00 Weight (Pounds): 169 General Appearance: no apparent distress, alert EENT: normal ENT inspection Neck: normal alignment, supple Cardiovascular: normal rate, regular rhythm, regularly irregular, no gallop/murmur, no JVD Respiratory/Chest: lungs clear, normal breath sounds Abdomen: normal bowel sounds, non tender, soft, no organomegaly, no mass, other - He will doing detail palpation of his abdomen the pain he was complaining about could not be generated and does not appear to be in pain just now Extremities: non-tender Neurologic: alert, oriented x 3, responsive, other - Patient remained confused in regards to the reason why he still staying in the hospital and cannot be return to the half-way for which he came fromThis man gives the impression the patient is demented as the patient is not demented Assessment/Plan Status: stable Status Narrative Patient remains asymptomatic confusing regard to the length of stay tolerating dialysis without difficulties in respect of not having his BiPAP machine he does not seem to be in any respiratory distress It is unclear to me what the reason the patient cannot be discharged in his current condition If patient is not discharged repeat laboratory tests will be done in Ayush Lucas MD, MD Dec 16, 2019 13:55
--- NOTE | 2019-12-16 13:56 | Nephrology Progress Note ---
Assessment/Plan Problem List: (1) Respiratory distress (2) Diabetes mellitus (3) Hypertension (4) Renal failure (ARF), acute on chronic Assessment Patient's current problem is dyspnea Most likely volume overload versus pneumonitis Other conditions: Renal failure (ARF), acute on chronic h/o Metabolic acidosis h/oElectrolyte imbalance Hyponatremia and hyperkalemia h/oAnemia h/o CHF (congestive heart failure) Plan December 15: Patient was dialyzed on December 13. Next dialysis December 16. Status quo. Labs reviewed. Medication list reviewed. Continue current treatment plan. December 14: Patient was dialyzed yesterday. No chemistry panel done today. Continue to monitor renal parameters and dialysis treatment as needed. Continue per consultants. December 13: Patient due for dialysis today. Labs reviewed. Patient is DNR. Confused. December 12: Last dialysis December 10. Labs reviewed. Medication list reviewed. Continue per current management. Check lab tomorrow, will arrange for dialysis as needed. December 11: Dialyzed yesterday. Status quo. Continue to monitor renal parameters and dialysis as needed. Continue per consultants. December 10: Due for dialysis today. No chemistry panel done today. We will continue to monitor renal parameters. Medication list reviewed. December 09: Last dialyzed December 06. Labs reviewed. Will order dialysis tomorrow. Continue current treatment plan. December 08: Last dialysis December 06. No chemistry panel today. Will check lab tomorrow. Hemodialysis as needed. December 07: Dialyzed yesterday. Labs reviewed. Stable from renal standpoint of view. December 06: Due for dialysis today. CBC and medication list reviewed. Continue per consultants. Hemoglobin drifting down. Will check CBC and chemistry panel tomorrow December 05: Labs reviewed. Serum creatinine up to 4.2. Calculated GFR 13. Last dialysis December 02. Will order dialysis tomorrow. December 04: Status quo. Labs reviewed. Continue per current management. December 03: Patient was dialyzed yesterday. Labs reviewed. Continue per current management. December 02: Due for dialysis today. Blood pressure medications on hold. Albumin 25% for BP support during dialysis. Continue to monitor renal parameters. December 01: Labs reviewed. Medication reviewed. Creatinine higher. Hemodialysis for tomorrow. Continue rest. November 30: Patient was last dialyzed November 28. Not in any distress now. Appears to be more verbal today. Labs reviewed. Creatinine 3.8. Hemoglobin lower at 7.9. 1 dose of IV iron ordered. Subcu Epogen ordered. November 29: Dialyzed yesterday. Status quo. Will check chemistry panel tomorrow. Dialysis as needed. Continue per PMD and consultants. November 28: Due for dialysis and ultrafiltration today. Labs and medications reviewed. Blood pressure is stable. November 27: BNP rising. Not much urine output. Will dialyze and ultrafiltrate tomorrow. Labs reviewed. Continue to adjust blood pressure medications. Continue per consultants. November 26: Last dialysis November 24. Status quo. Labs reviewed. Medication list reviewed. Continue to monitor renal parameters. Dialysis as needed. November 25: Patient was dialyzed yesterday. Today is due for insertion of a GT tube. Patient pulled out his previous GT tube. Labs reviewed. Electrolytes abnormalities adjusted. Continue to monitor renal parameters. Patient is off BiPAP and on nasal cannula now. I believe that upon discharge the patient requires 2-3 times a week dialysis and ultrafiltration however upon discharge the patient needs to be followed by a industrial economics professor in the facility that he goes to to assess on a regular basis the need and frequency for dialysis. November 24 : Late note entry due to system problem at the [facility] [place]. Patient due for dialysis and ultrafiltration today. Labs reviewed. Chest x-ray results not available on EMR. Last dialysis November 21. Continue pulmonary toilet. Patient remains on BiPAP. Will check labs tomorrow. Subjective ROS Limited/Unobtainable: Yes Objective Objective Last 24 Hour Vital Signs Date Time Temp Pulse Resp B/P (MAP) Pulse Ox O2 Delivery O2 Flow Rate FiO2 12/16/19 12:00 97.7 62 18 121/48 (72) 96 12/16/19 09:00 Nasal Cannula 1.0 12/16/19 08:40 64 124/50 12/16/19 08:39 64 124/50 12/16/19 08:00 97.7 64 18 124/50 (74) 97 12/16/19 07:26 98 Nasal Cannula 2.0 28 12/16/19 04:00 97.7 66 20 130/47 (74) 98 12/16/19 04:00 98.2 12/16/19 00:00 98.2 66 19 133/52 (79) 95 12/15/19 21:19 98.8 12/15/19 21:00 Nasal Cannula 1.0 12/15/19 20:50 66 104/40 12/15/19 20:49 66 104/40 12/15/19 20:19 98 Nasal Cannula 1.0 24 12/15/19 20:00 98.4 66 19 104/40 (61) 98 12/15/19 16:00 98.8 64 17 121/51 (74) 97 Intake and Output 12/15/19 12/16/19 19:00 07:00 Intake Total 180 ml Balance 180 ml Intake Free Water 60 ml Tube Feeding 120 ml # Voids 1 Laboratory Tests 12/15/19 17:53: POC Whole Blood Glucose [Pending] 12/16/19 00:14: POC Whole Blood Glucose 166H 12/16/19 05:45: White Blood Count 10.0, Red Blood Count 3.33L, Hemoglobin 9.4L, Hematocrit 30.5L , Mean Corpuscular Volume 91, Mean Corpuscular Hemoglobin 28.2, Mean Corpuscular Hemoglobin Concent 30.8L, Red Cell Distribution Width 17.0H, Platelet Count 277, Mean Platelet Volume 6.2L, Neutrophils (%) (Auto) 72.0, Lymphocytes (%) (Auto) 20.4, Monocytes (%) (Auto) 4.7, Eosinophils (%) (Auto) 2.1, Basophils (%) (Auto) 0.7, Sodium Level 132L, Potassium Level 4.2, Chloride Level 93L, Carbon Dioxide Level 30, Anion Gap 9, Blood Urea Nitrogen 79H, Creatinine 4.4H, Estimat Glomerular Filtration Rate 13.0, Glucose Level 167H, Uric Acid 3.0, Calcium Level 8.8, Phosphorus Level 5.3H, Total Bilirubin 0.4, Aspartate Amino Transf (AST/SGOT) 20, Alanine Aminotransferase (ALT/SGPT) 12, Alkaline Phosphatase 180H , C-Reactive Protein, Quantitative 2.5H, Pro-B-Type Natriuretic Peptide 7910H, Total Protein 6.3L, Albumin 3.0L, Globulin 3.3, Albumin/Globulin Ratio 0.9L Height (Feet): 5 Height (Inches): 5.00 Weight (Pounds): 169 General Appearance: no apparent distress Respiratory/Chest: decreased breath sounds Abdomen: soft Objective No change Naveed Vanegas MD Dec 16, 2019 13:56
--- NOTE | 2019-12-16 14:22 | General Progress Note ---
Subjective ROS Limited/Unobtainable: No Allergies: Coded Allergies: PENICILLINS (Verified Allergy, Unknown, 10/25/19) tolerated Ceftriaxone Uncoded Allergies: PENICILLIN (Allergy, Unknown, 11/23/19) Objective Last 24 Hour Vital Signs Date Time Temp Pulse Resp B/P (MAP) Pulse Ox O2 Delivery O2 Flow Rate FiO2 12/16/19 12:00 97.7 62 18 121/48 (72) 96 12/16/19 09:00 Nasal Cannula 1.0 12/16/19 08:40 64 124/50 12/16/19 08:39 64 124/50 12/16/19 08:00 97.7 64 18 124/50 (74) 97 12/16/19 07:26 98 Nasal Cannula 2.0 28 12/16/19 04:00 97.7 66 20 130/47 (74) 98 12/16/19 04:00 98.2 12/16/19 00:00 98.2 66 19 133/52 (79) 95 12/15/19 21:19 98.8 12/15/19 21:00 Nasal Cannula 1.0 12/15/19 20:50 66 104/40 12/15/19 20:49 66 104/40 12/15/19 20:19 98 Nasal Cannula 1.0 24 12/15/19 20:00 98.4 66 19 104/40 (61) 98 12/15/19 16:00 98.8 64 17 121/51 (74) 97 Intake and Output 12/15/19 12/16/19 19:00 07:00 Intake Total 180 ml Balance 180 ml Intake Free Water 60 ml Tube Feeding 120 ml # Voids 1 Laboratory Tests 12/15/19 17:53: POC Whole Blood Glucose [Pending] 12/16/19 00:14: POC Whole Blood Glucose 166H 12/16/19 05:45: White Blood Count 10.0, Red Blood Count 3.33L, Hemoglobin 9.4L, Hematocrit 30.5L , Mean Corpuscular Volume 91, Mean Corpuscular Hemoglobin 28.2, Mean Corpuscular Hemoglobin Concent 30.8L, Red Cell Distribution Width 17.0H, Platelet Count 277, Mean Platelet Volume 6.2L, Neutrophils (%) (Auto) 72.0, Lymphocytes (%) (Auto) 20.4, Monocytes (%) (Auto) 4.7, Eosinophils (%) (Auto) 2.1, Basophils (%) (Auto) 0.7, Sodium Level 132L, Potassium Level 4.2, Chloride Level 93L, Carbon Dioxide Level 30, Anion Gap 9, Blood Urea Nitrogen 79H, Creatinine 4.4H, Estimat Glomerular Filtration Rate 13.0, Glucose Level 167H, Uric Acid 3.0, Calcium Level 8.8, Phosphorus Level 5.3H, Total Bilirubin 0.4, Aspartate Amino Transf (AST/SGOT) 20, Alanine Aminotransferase (ALT/SGPT) 12, Alkaline Phosphatase 180H , C-Reactive Protein, Quantitative 2.5H, Pro-B-Type Natriuretic Peptide 7910H, Total Protein 6.3L, Albumin 3.0L, Globulin 3.3, Albumin/Globulin Ratio 0.9L Height (Feet): 5 Height (Inches): 5.00 Weight (Pounds): 169 General Appearance: alert EENT: normal ENT inspection Neck: supple Cardiovascular: normal rate Respiratory/Chest: decreased breath sounds Abdomen: normal bowel sounds, non tender, soft Extremities: non-tender Assessment/Plan Problem List: (1) Hypertension ICD Codes: I10 - Essential (primary) hypertension SNOMED: 72346223 (2) Diabetes mellitus ICD Codes: E11.9 - Type 2 diabetes mellitus without complications SNOMED: 69557825 (3) Cholelithiasis ICD Codes: K80.20 - Calculus of gallbladder without cholecystitis without obstruction SNOMED: 472288984 Status: stable Assessment/Plan: dysphagia s/p GT placement GTF monitor for residuals fu H&H prn blood transfusion Lawrence Humphreys MD Dec 16, 2019 14:22
[2019-12-16 16:00] VITALS: BP 130/61
[2019-12-16 20:00] VITALS: BP 129/96
[2019-12-16] MEDS: Dyna-Hex 2% Top Sol 2oz TOPIC SCH (22:08)
[2019-12-17] VITALS: BP 124/48
[2019-12-17] MEDS: NovoLOG Insulin Flexpen SUBQ SCH ×4 (00:22→17:04)
[2019-12-17] MEDS: Morphine Sulfate 10mg/5ml Oral Soln ud ORAL PRN ×2 (00:33→17:03)
[2019-12-17 04:00] VITALS: BP 127/50
[2019-12-17 08:00] VITALS: BP 117/58
[2019-12-17] MEDS: Metoprolol Tartrate 12.5mg TAB GT SCH ×2 (08:20→22:00)
[2019-12-17] MEDS: Amiodarone 200mg tab ORAL SCH ×2 (08:21→22:00)
[2019-12-17] MEDS: Eliquis 2.5mg tablet ORAL SCH ×2 (08:21→17:02)
[2019-12-17] MEDS: Docusate 100mg/10ml Liq NG SCH ×3 (08:21→17:02)
--- NOTE | 2019-12-17 09:01 | Hematology/Onc Progress Note ---
Assessment/Plan Assessment/Plan ASSESSMENT AND RECOMMENDATIONS: # Anemia of chronic disease due to underlying chronic medical issues, multifactorial --> Anemia w/u has been reviewed. --> no evidence of hemolysis is noted, peripheral smear has been reviewed --> hgb goal is >7, transfuse as needed --> currently remains stable, occult blood negative --> hgb 8.4->8.6->8.3->8->8.2->9.2-->9.2->8.9-->8.1-->8.7>9.4-->8.7-->8->7.8->7.5-->7.4- ->7.5-->8.1-->8-->8.1-->9.5->7.9-->7.6-->7.5-->9.9-->8.8-->9.1->9.6-->9.4 --> 1 unit prbc 12/03 --> some blood loss due to hematuria after inflated reyes pulled 8/6 am --> EPOGEN to continue # Thrombocytopenia is likely due to infection --> plt trend 180-->149-->274 --> on abx as needed --> hep and hiv neg #. Leukocytosis with underlying infectionv stress reaction HISTORY --> per id and better --> for infection, ABX ctx/vanc-->off --> wbc 10-->5.9 # Acute kidney injury r/o potential reversible component --> reviewed meds, those that are renally cleared removed --> as per renal recs, appreciated --> cr 3.5-->4.2-->3.4->3.3 --> Hd started and dw renal # Hypertension, essential --> sbp goal is <140, consider anti-htn as needed --> currently started on hyralazine 25mg po q6h prn sbp >140 # CHF - hx of CHf --> diuresis with lasix as needed --> cardiology recs appreciated prior adm #. Bilateral lower extremity amputee, metatarsal several years ago --> stable #. Atrial fibrillation --> as per cards recs #. Dysphagia s/p peg --> peg pulled out and now with gtube 11/25 #. Hyperkalemia --> kayxelate as needed #. Agitation requires restraints #. Dvt ppx scds --> xarelto=> off-->eliquis-->off-->eliquis The time the note was entered does not necessarily correspond to the time the patient was seen. GREATLY APPRECIATE CONSULTATION. Subjective Cardiovascular: Denies: no symptoms, chest pain, edema, irregular heart rate, lightheadedness, palpitations, syncope, other Respiratory: Denies: no symptoms, cough, shortness of breath, SOB with excertion, SOB at rest, sputum, wheezing, other Gastrointestinal/Abdominal: Denies: no symptoms, abdomen distended, abdominal pain, black stools, tarry stools, blood in stool, constipated, diarrhea, difficulty swallowing, nausea, poor appetite, poor fluid intake, rectal bleeding, vomiting, other Neurologic/Psychiatric: Denies: no symptoms, anxiety, depressed, emotional problems, headache, numbness, paresthesia, pre-existing deficit, seizure, tingling, tremors, weakness, other Endocrine: Denies: no symptoms, excessive sweating, flushing, intolerance to cold, intolerance to heat, increased hunger, increased thirst, increased urine, unexplained weight gain, unexplained weight loss, other Hematologic/Lymphatic: Denies: no symptoms, anemia, easy bleeding, easy bruising, adenopathy, other Allergies: Coded Allergies: PENICILLINS (Verified Allergy, Unknown, 10/25/19) tolerated Ceftriaxone Uncoded Allergies: PENICILLIN (Allergy, Unknown, 11/23/19) Subjective 11/23 came back from [facility] due to lack of bipap capability, hgb 7.5 11/24 labs reviewed, remains sob, with a hgb 8.1, no bleeding, jag rn, hold off prbc 11/25 labs are noted, for egd and peg in the am, jag salas, on nc 11/27 getting 3l nc overnight, has been refusing bipap unfortunately, hgb stable 11/28 labs noted, with gtube feeds, again this am refusing bipap 11/29 is on 2l nc, with gtube feeds, hgb 9.5, no bleeding 11/30 labs are noted, no bleeding, on gtube feeds, on 2l nc 12/01 meds noted, no bleeding, hgb 7.9 yesterday, on nc 12/02 is on nepro and on 2l, hgb 7.6, c/o itching, have started benadryl q 8h prn 12/04 labs reviewed, coverning for Dr. Chang, no bleeding, meds noted, wants restraints off 12/05 labs are noted, no bleeding, no night sweats, with gtube feeds ongoing 12/06 labs reviewed, no bleeding, meds noted, no major changes, peg+ 12/07 on wrist restraints, gtube was pulled out overnight, no bleedng 12/10 no acute events, nc 2l, bilat wrist restraints, eliquis 12/11 labs are noted, labs reviewed, is on 2l, agitated again 12/12 is awake, alert, no bleeding, meds reviewed, no night sweats, hgb 9.1 12/13 labs reviewed, is on 1l nc, no bleeding, meds noted, hgb 9.6 12/14 on 2l nc, no bleeding, labs noted, meds reviewed, no major changes 12/15 is on 1l nc, no bleeding, meds noted, no bleeding, dw rn 12/16 labs noted, no bleeding, meds noted, no f/c, no night sweats Objective Objective Current Medications Medications (Trade) Dose Ordered Sig/Cammy Route PRN Reason Start Time Stop Time Status Last Admin Dose Admin Allopurinol (allopurinoL) 300 mg DAILY ORAL 11/26/19 10:30 12/24/19 10:29 12/17/19 08:21 Amiodarone HCl (Cordarone) 200 mg EVERY 12 HOURS ORAL 12/04/19 21:00 03/03/20 20:59 12/17/19 08:21 Amlodipine Besylate (Norvasc) 5 mg Q12HR GT 11/28/19 21:00 12/24/19 10:29 12/16/19 22:08 Apixaban (Eliquis) 2.5 mg BID ORAL 11/26/19 10:30 02/22/20 10:29 12/16/19 17:39 Atorvastatin Calcium (Lipitor) 10 mg BEDTIME ORAL 11/26/19 21:00 02/22/20 20:59 12/16/19 22:08 Chlorhexidine Gluconate (Yi-Hex 2%) 1 applic DAILY@2000 TOPIC 11/26/19 20:00 02/24/20 19:59 12/16/19 22:08 Dextrose (Dextrose 50%) 25 ml Q30M PRN IV Hypoglycemia 12/03/19 10:30 03/02/20 10:29 Dextrose (Dextrose 50%) 50 ml Q30M PRN IV Hypoglycemia 12/03/19 10:30 03/02/20 10:29 Diphenhydramine HCl (Benadryl) 25 mg Q8H PRN NG Itching 12/03/19 09:30 01/02/20 09:29 12/14/19 23:19 Docusate Sodium (Colace) 100 mg THREE TIMES A DAY NG 11/28/19 13:00 12/28/19 12:59 12/17/19 08:21 Epoetin William (Epoetin William(ESRD on dialysis)) 10,000 unit SUBQ 12/01/19 21:00 02/29/20 20:59 12/15/19 21:56 Insulin Aspart (NovoLOG) Q6HR SUBQ 12/03/19 12:00 03/02/20 11:59 12/17/19 05:28 Lansoprazole (Prevacid) 30 mg DAILY GT 11/28/19 10:45 12/28/19 10:44 12/17/19 08:21 Metoprolol Tartrate (Lopressor) 12.5 mg Q12HR GT 11/29/19 09:00 02/27/20 08:59 12/16/19 22:08 Morphine Sulfate (Morphine 10mg/ 5ml Oral Soln) 1 mg Q6H PRN ORAL For Pain 12/14/19 14:29 12/21/19 14:28 12/17/19 00:33 Sennosides (Senokot) 8.6 mg DAILY PRN ORAL Constipation 11/26/19 10:30 12/26/19 10:29 Last 24 Hour Vital Signs Date Time Temp Pulse Resp B/P (MAP) Pulse Ox O2 Delivery O2 Flow Rate FiO2 12/17/19 08:21 68 117/58 12/17/19 08:20 68 117/58 12/17/19 08:00 98.6 68 18 117/58 (77) 98 12/17/19 04:00 98.5 69 18 127/50 (75) 95 12/17/19 00:00 98.3 68 18 124/48 (73) 95 12/16/19 22:08 70 129/96 12/16/19 22:08 70 129/96 12/16/19 20:23 Nasal Cannula 1.0 12/16/19 20:00 97.7 70 18 129/96 (107) 98 12/16/19 16:00 97.7 65 17 130/61 (84) 98 12/16/19 12:00 97.7 62 18 121/48 (72) 96 12/16/19 09:00 Nasal Cannula 1.0 12/16/19 08:40 64 124/50 12/16/19 08:39 64 124/50 12/16/19 08:00 97.7 64 18 124/50 (74) 97 12/16/19 07:26 98 Nasal Cannula 2.0 28 12/16/19 04:00 97.7 66 20 130/47 (74) 98 12/16/19 04:00 98.2 12/16/19 00:00 98.2 66 19 133/52 (79) 95 12/15/19 21:19 98.8 12/15/19 21:00 Nasal Cannula 1.0 12/15/19 20:50 66 104/40 12/15/19 20:49 66 104/40 12/15/19 20:19 98 Nasal Cannula 1.0 24 12/15/19 20:00 98.4 66 19 104/40 (61) 98 12/15/19 16:00 98.8 64 17 121/51 (74) 97 12/15/19 12:00 97.6 60 19 123/48 (73) 98 Intake and Output 12/16/19 12/17/19 19:00 07:00 Intake Total 420 ml Output Total 200 ml 150 ml Balance 220 ml -150 ml Intake Free Water 60 ml Tube Feeding 360 ml Output Urine Total 200 ml 150 ml # Voids 2 Labs Test 12/14/19 11:14 12/14/19 17:25 12/15/19 05:39 12/15/19 11:45 POC Whole Blood Glucose 167 MG/DL (74-106) 176 MG/DL (74-106) 124 MG/DL (74-106) Test 12/15/19 17:53 12/16/19 00:14 12/16/19 05:45 POC Whole Blood Glucose 166 MG/DL (74-106) White Blood Count 10.0 K/UL (4.8-10.8) Red Blood Count 3.33 M/UL (4.70-6.10) Hemoglobin 9.4 G/DL (14.2-18.0) Hematocrit 30.5 % (42.0-52.0) Mean Corpuscular Volume 91 FL (80-99) Mean Corpuscular Hemoglobin 28.2 PG (27.0-31.0) Mean Corpuscular Hemoglobin Concent 30.8 G/DL (32.0-36.0) Red Cell Distribution Width 17.0 % (11.6-14.8) Platelet Count 277 K/UL (150-450) Mean Platelet Volume 6.2 FL (6.5-10.1) Neutrophils (%) (Auto) 72.0 % (45.0-75.0) Lymphocytes (%) (Auto) 20.4 % (20.0-45.0) Monocytes (%) (Auto) 4.7 % (1.0-10.0) Eosinophils (%) (Auto) 2.1 % (0.0-3.0) Basophils (%) (Auto) 0.7 % (0.0-2.0) Sodium Level 132 MMOL/L (136-145) Potassium Level 4.2 MMOL/L (3.5-5.1) Chloride Level 93 MMOL/L (98-107) Carbon Dioxide Level 30 MMOL/L (21-32) Anion Gap 9 mmol/L (5-15) Blood Urea Nitrogen 79 mg/dL (7-18) Creatinine 4.4 MG/DL (0.55-1.30) Estimat Glomerular Filtration Rate 13.0 mL/min (>60) Glucose Level 167 MG/DL (74-106) Uric Acid 3.0 MG/DL (2.6-7.2) Calcium Level 8.8 MG/DL (8.5-10.1) Phosphorus Level 5.3 MG/DL (2.5-4.9) Total Bilirubin 0.4 MG/DL (0.2-1.0) Aspartate Amino Transf (AST/SGOT) 20 U/L (15-37) Alanine Aminotransferase (ALT/SGPT) 12 U/L (12-78) Alkaline Phosphatase 180 U/L (46-116) C-Reactive Protein, Quantitative 2.5 mg/dL (0.00-0.90) Pro-B-Type Natriuretic Peptide 7910 pg/mL (0-125) Total Protein 6.3 G/DL (6.4-8.2) Albumin 3.0 G/DL (3.4-5.0) Globulin 3.3 g/dL Albumin/Globulin Ratio 0.9 (1.0-2.7) Height (Feet): 5 Height (Inches): 5.00 Weight (Pounds): 169 Objective GENERAL: Not in acute distress. HEENT: ncat PULMONARY: Decreased breath sounds. ++ bipap v nc+ CHEST: ++permacath right chest CARDIOVASCULAR: Regular rate. No S3 or S4. ABDOMEN: Soft, nontender, nondistended.++reyes in site of old gtube EXTREMITIES: 1+ edema. No cyanosis, swelling, or edema. 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 Melvin Rizzo MD Dec 17, 2019 09:01
--- NOTE | 2019-12-17 09:50 | Pulmonology Progress Note ---
Reema Hanna PNEUMATIC TESTER MECHANIC 12/17/19 0950: Subjective ROS Limited/Unobtainable: No Allergies: Coded Allergies: PENICILLINS (Verified Allergy, Unknown, 10/25/19) tolerated Ceftriaxone Uncoded Allergies: PENICILLIN (Allergy, Unknown, 11/23/19) All Systems: reviewed and negative except above Subjective on MS floor condition the same on O2 1-2 L via NC, pulse ox stable off BiPAP and continued to decline it no signs of resp distress code status changed to DNR/DNI on 12/06 by attending due to family wishes GI follows no diarrhea, HH remains at baseline tolerates GT feeding pain medications regimen optimized dc plan in process apparently challenging placement , unable to place so far, Objective Last 24 Hour Vital Signs Date Time Temp Pulse Resp B/P (MAP) Pulse Ox O2 Delivery O2 Flow Rate FiO2 12/17/19 08:21 68 117/58 12/17/19 08:20 68 117/58 12/17/19 08:00 98.6 68 18 117/58 (77) 98 12/17/19 04:00 98.5 69 18 127/50 (75) 95 12/17/19 00:00 98.3 68 18 124/48 (73) 95 12/16/19 22:08 70 129/96 12/16/19 22:08 70 129/96 12/16/19 20:23 Nasal Cannula 1.0 12/16/19 20:00 97.7 70 18 129/96 (107) 98 12/16/19 16:00 97.7 65 17 130/61 (84) 98 12/16/19 12:00 97.7 62 18 121/48 (72) 96 Intake and Output 12/16/19 12/17/19 18:59 06:59 Intake Total 460 ml Output Total 200 ml 150 ml Balance 260 ml -150 ml Intake Free Water 60 ml Tube Feeding 400 ml Output Urine Total 200 ml 150 ml # Voids 2 Objective General Appearance: alert , confused, but more awake Green[place]ic speaking male, Lines, tubes and drains: peripheral HEENT: normocephalic, atraumatic, anicteric, O2 via NC Neck: supple Respiratory/Chest: lungs clear, no respiratory distress Cardiovascular/Chest: normal rate, Abdomen: non tender, soft, feeding tube - G tube Extremities: BL foot TMA Neurologic: abnormal gait, alert, confused, responsive Musculoskeletal: atrophy - BLE Current Medications Medications (Trade) Dose Ordered Sig/Cammy Route PRN Reason Start Time Stop Time Status Last Admin Dose Admin Allopurinol (allopurinoL) 300 mg DAILY ORAL 11/26/19 10:30 12/24/19 10:29 12/17/19 08:21 Amiodarone HCl (Cordarone) 200 mg EVERY 12 HOURS ORAL 12/04/19 21:00 03/03/20 20:59 12/17/19 08:21 Amlodipine Besylate (Norvasc) 5 mg Q12HR GT 11/28/19 21:00 12/24/19 10:29 12/16/19 22:08 Apixaban (Eliquis) 2.5 mg BID ORAL 11/26/19 10:30 02/22/20 10:29 12/16/19 17:39 Atorvastatin Calcium (Lipitor) 10 mg BEDTIME ORAL 11/26/19 21:00 02/22/20 20:59 12/16/19 22:08 Chlorhexidine Gluconate (Yi-Hex 2%) 1 applic DAILY@1999 TOPIC 11/26/19 20:00 02/24/20 19:59 12/16/19 22:08 Dextrose (Dextrose 50%) 25 ml Q30M PRN IV Hypoglycemia 12/03/19 10:30 03/02/20 10:29 Dextrose (Dextrose 50%) 50 ml Q30M PRN IV Hypoglycemia 12/03/19 10:30 03/02/20 10:29 Diphenhydramine HCl (Benadryl) 25 mg Q8H PRN NG Itching 12/03/19 09:30 01/02/20 09:29 12/14/19 23:19 Docusate Sodium (Colace) 100 mg THREE TIMES A DAY NG 11/28/19 13:00 12/28/19 12:59 12/17/19 08:21 Epoetin William (Epoetin William(ESRD on dialysis)) 10,000 unit FRI-FRI-FRI SUBQ 12/01/19 21:00 02/29/20 20:59 12/15/19 21:56 Insulin Aspart (NovoLOG) Q6HR SUBQ 12/03/19 12:00 03/02/20 11:59 12/17/19 05:28 Lansoprazole (Prevacid) 30 mg DAILY GT 11/28/19 10:45 12/28/19 10:44 12/17/19 08:21 Metoprolol Tartrate (Lopressor) 12.5 mg Q12HR GT 11/29/19 09:00 02/27/20 08:59 12/16/19 22:08 Morphine Sulfate (Morphine 10mg/ 5ml Oral Soln) 1 mg Q6H PRN ORAL For Pain 12/14/19 14:29 12/21/19 14:28 12/17/19 00:33 Sennosides (Senokot) 8.6 mg DAILY PRN ORAL Constipation 11/26/19 10:30 12/26/19 10:29 Assessment/Plan Assessment/Plan ASSESSMENT Prior acute hypoxemic hypercapnic respiratory failure requiring BiPAP Chronic CO2 retention Possible DAYANA Aspiration risk s/p recent PNA Dysphagia , s/p PEG , pulled out, s/p replacement of PEG 11/16 Acute kidney injury on chronic kidney disease, requiring start of HD 10/30 Anemia of chronic kidney disease PAF/flutter- converted to SR Diabetes mellitus HTN PVD with hx of bilateral foot MTA Refusal of care PLAN OF CARE MS floor BiPAP at HS and prn , refusing again currently on O2 3 L via NC titrate O2, pulm toilet patient likely has DAYANA. recommend sleep study as OP CXR 11/28 mild vascular congestion and small bilateral pleural effusions, slightly improved when compared to October 31, 2019. No pneumothorax. Cardiomegaly. Calcified aorta. ABG prn rapid COVID NGT, BiPAP prn and HS-continued to refuse developed A flutter/ fib 12/03 seen by cardio already spontaneously converter to SR on a/c with Eliquis, rate controlled with BB ECHO with pEF 55-60% rate control with BB, HR stable on chronic a/c , was on hold for PEG, Eliquis afterwards resumed BP management with CCB and BB, optimize as needed continue statin ethics eval if pt can refuse BiPAP ( patient with dementia, confusion), daughter wants BiPAP and unclear how he refused if was on restraints? in our opinion BiPAP should be on standing order and available in the facility when patient will be transferred need formal polysomnogram to be done as OP bioethics eval appreciated, done 11/25 . per bioethics: pt with diminished capacity and does not understand the consequences of refusing bi-pap, yet it seems inhumane to force him to endure it recommended that he should be discharged to the SNF on nasal canula with instructions not to be sent back to the acute care hospital for refusal to accept bi-pap. bioethics offered to have a family conference to explain the reasoning if the family is willing to speak with us. SHERRIE spoke with daughter and ( through RN paper and pulp mill operator) re further GOC and code status 11/29 daughter and decided on DNR/DNI status , which was relayed to me by SW 12/02 Dr Pabon spoke with Dr Chang, code status changed on 12/06 to DNR/DNI dc plan to SNF ; SHERRIE discussed with family ( not want [facility]) , ongoing search for the facility completed Rx for PNA on prior admission Venous Duplex BLE 10/25 -> NGT aspir precautions, TF via GT f protein supplements GI follows pain management HH remains at baseline tolerates GT feeding bowel regimen, HD as per nephro recs monitor volumes, renal paramerts, lytes s/p placement of permanent HD catheter R chest 11/07 s/p removal of temporary HD catheter by surgeon prior HgA1c -6.1 hold oral anti-glycemic monitor HH with goal to keep Hgb above 7 anemia w/up prior noted , heme on board on EPO GI prophayxlis supportive care dc plan in progress, challenging placement case discussed and evaluated by supervising physician Jonathon Pabon MD 12/17/19 1424: Subjective Allergies: Coded Allergies: PENICILLINS (Verified Allergy, Unknown, 10/25/19) tolerated Ceftriaxone Uncoded Allergies: PENICILLIN (Allergy, Unknown, 11/23/19) Assessment/Plan Assessment/Plan Patient seen and examined with PNEUMATIC TESTER MECHANIC. Agree with A&P as it reflects our joint deliberations. Reema Hanna NP Dec 17, 2019 09:50 Jonathon Pabon MD Dec 17, 2019 14:24
[2019-12-17 12:00] VITALS: BP 119/62
--- NOTE | 2019-12-17 13:11 | Nephrology Progress Note ---
Assessment/Plan Problem List: (1) Respiratory distress (2) Diabetes mellitus (3) Hypertension (4) Renal failure (ARF), acute on chronic Assessment Patient's current problem is dyspnea Most likely volume overload versus pneumonitis Other conditions: Renal failure (ARF), acute on chronic h/o Metabolic acidosis h/oElectrolyte imbalance Hyponatremia and hyperkalemia h/oAnemia h/o CHF (congestive heart failure) Plan December 16: Patient due for dialysis today. Labs reviewed. Status unchanged. Continue with same management. December 15: Patient was dialyzed on December 13. Next dialysis December 16. Status quo. Labs reviewed. Medication list reviewed. Continue current treatm ent plan. December 14: Patient was dialyzed yesterday. No chemistry panel done today. Continue to monitor renal parameters and dialysis treatment as needed. Continue per consultants. December 13: Patient due for dialysis today. Labs reviewed. Patient is DNR. Confused. December 12: Last dialysis December 10. Labs reviewed. Medication list reviewed. Continue per current management. Check lab tomorrow, will arrange for dialysis as needed. December 11: Dialyzed yesterday. Status quo. Continue to monitor renal parameters and dialysis as needed. Continue per consultants. December 10: Due for dialysis today. No chemistry panel done today. We will continue to monitor renal parameters. Medication list reviewed. December 09: Last dialyzed December 06. Labs reviewed. Will order dialysis tomorrow. Continue current treatment plan. December 08: Last dialysis December 06. No chemistry panel today. Will check lab tomorrow. Hemodialysis as needed. December 07: Dialyzed yesterday. Labs reviewed. Stable from renal standpoint of view. December 06: Due for dialysis today. CBC and medication list reviewed. Continue per consultants. Hemoglobin drifting down. Will check CBC and chemistry panel tomorrow December 05: Labs reviewed. Serum creatinine up to 4.2. Calculated GFR 13. Last dialysis December 02. Will order dialysis tomorrow. December 04: Status quo. Labs reviewed. Continue per current management. December 03: Patient was dialyzed yesterday. Labs reviewed. Continue per current management. December 02: Due for dialysis today. Blood pressure medications on hold. Albumin 25% for BP support during dialysis. Continue to monitor renal parameters. December 01: Labs reviewed. Medication reviewed. Creatinine higher. Hemodialysis for tomorrow. Continue rest. November 30: Patient was last dialyzed November 28. Not in any distress now. Appears to be more verbal today. Labs reviewed. Creatinine 3.8. Hemoglobin lower at 7.9. 1 dose of IV iron ordered. Subcu Epogen ordered. November 29: Dialyzed yesterday. Status quo. Will check chemistry panel tomorrow. Dialysis as needed. Continue per PMD and consultants. November 28: Due for dialysis and ultrafiltration today. Labs and medications reviewed. Blood pressure is stable. November 27: BNP rising. Not much urine output. Will dialyze and ultrafiltrate tomorrow. Labs reviewed. Continue to adjust blood pressure medications. Continue per consultants. November 26: Last dialysis November 24. Status quo. Labs reviewed. Medication list reviewed. Continue to monitor renal parameters. Dialysis as needed. November 25: Patient was dialyzed yesterday. Today is due for insertion of a GT tube. Patient pulled out his previous GT tube. Labs reviewed. Electrolytes abnormalities adjusted. Continue to monitor renal parameters. Patient is off BiPAP and on nasal cannula now. I believe that upon discharge the patient requires 2-3 times a week dialysis and ultrafiltration however upon discharge the patient needs to be followed by a marketing area manager in the facility that he goes to to assess on a regular basis the need and frequency for dialysis. November 24 : Late note entry due to system problem at the [facility] today. Patient due for dialysis and ultrafiltration today. Labs reviewed. Chest x-ray results not available on EMR. Last dialysis November 21. Continue pulmonary toilet. Patient remains on BiPAP. Will check labs tomorrow. Subjective ROS Limited/Unobtainable: No Constitutional: Reports: malaise, weakness Objective Objective Last 24 Hour Vital Signs Date Time Temp Pulse Resp B/P (MAP) Pulse Ox O2 Delivery O2 Flow Rate FiO2 12/17/19 09:00 Nasal Cannula 1.0 12/17/19 08:21 68 117/58 12/17/19 08:20 68 117/58 12/17/19 08:00 98.6 68 18 117/58 (77) 98 12/17/19 04:00 98.5 69 18 127/50 (75) 95 12/17/19 00:00 98.3 68 18 124/48 (73) 95 12/16/19 22:08 70 129/96 12/16/19 22:08 70 129/96 12/16/19 20:23 Nasal Cannula 1.0 12/16/19 20:00 97.7 70 18 129/96 (107) 98 12/16/19 16:00 97.7 65 17 130/61 (84) 98 Intake and Output 12/16/19 12/17/19 19:00 07:00 Intake Total 420 ml Output Total 200 ml 150 ml Balance 220 ml -150 ml Intake Free Water 60 ml Tube Feeding 360 ml Output Urine Total 200 ml 150 ml # Voids 2 Laboratory Tests 12/17/19 12:16: POC Whole Blood Glucose 178H Height (Feet): 5 Height (Inches): 5.00 Weight (Pounds): 169 General Appearance: no apparent distress Cardiovascular: normal rate Respiratory/Chest: decreased breath sounds Abdomen: soft Objective No change Naveed Vanegas MD Dec 17, 2019 13:11
--- NOTE | 2019-12-17 14:03 | General Progress Note ---
Subjective ROS Limited/Unobtainable: No Allergies: Coded Allergies: PENICILLINS (Verified Allergy, Unknown, 10/25/19) tolerated Ceftriaxone Uncoded Allergies: PENICILLIN (Allergy, Unknown, 11/23/19) Objective Last 24 Hour Vital Signs Date Time Temp Pulse Resp B/P (MAP) Pulse Ox O2 Delivery O2 Flow Rate FiO2 12/17/19 12:00 98.2 72 18 119/62 (81) 98 12/17/19 09:00 Nasal Cannula 1.0 12/17/19 08:21 68 117/58 12/17/19 08:20 68 117/58 12/17/19 08:00 98.6 68 18 117/58 (77) 98 12/17/19 04:00 98.5 69 18 127/50 (75) 95 12/17/19 00:00 98.3 68 18 124/48 (73) 95 12/16/19 22:08 70 129/96 12/16/19 22:08 70 129/96 12/16/19 20:23 Nasal Cannula 1.0 12/16/19 20:00 97.7 70 18 129/96 (107) 98 12/16/19 16:00 97.7 65 17 130/61 (84) 98 Intake and Output 12/16/19 12/17/19 19:00 07:00 Intake Total 420 ml Output Total 200 ml 150 ml Balance 220 ml -150 ml Intake Free Water 60 ml Tube Feeding 360 ml Output Urine Total 200 ml 150 ml # Voids 2 Laboratory Tests 12/17/19 12:16: POC Whole Blood Glucose 178H Height (Feet): 5 Height (Inches): 5.00 Weight (Pounds): 169 General Appearance: no apparent distress EENT: normal ENT inspection Neck: supple Cardiovascular: normal rate Respiratory/Chest: decreased breath sounds Abdomen: normal bowel sounds, non tender, soft Extremities: non-tender Assessment/Plan Problem List: (1) Hypertension ICD Codes: I10 - Essential (primary) hypertension SNOMED: 25385347 (2) Diabetes mellitus ICD Codes: E11.9 - Type 2 diabetes mellitus without complications SNOMED: 21136804 (3) Cholelithiasis ICD Codes: K80.20 - Calculus of gallbladder without cholecystitis without obstruction SNOMED: 379532351 Status: stable Assessment/Plan: dysphagia s/p GT placement GTF monitor for residuals fu H&H prn blood transfusion Lawrence Humphreys MD Dec 17, 2019 14:03
[2019-12-17 16:00] VITALS: BP 122/45
--- NOTE | 2019-12-17 16:53 | Cardiac Electrophysiology PN ---
Assessment/Plan Assessment/Plan 1. Atrial flutter confirmed with 12-lead EKG. EF 55%. Ruled out for [place] protocol. Continue Amiodarone 200 bid, metoprolol 12.5 mg b.i.d. and Eliquis. 2. Hypertension, on metoprolol 12.5 mg bid ,amlodipine 5 mg b.i.d. and HD 3. Hyperlipidemia, on Lipitor. 4. End-stage renal disease, on hemodialysis. 5. Diabetes on insulin. 6. DNR/DNI 7. COPD, off BiPAP. 8. Peripheral vascular disease, status post bilateral transmetatarsal amputation. 9. S/P PEG DW RN Subjective Subjective Confused in restraints. PEG feeding on Abx. RN at bedside Objective Last 24 Hour Vital Signs Date Time Temp Pulse Resp B/P (MAP) Pulse Ox O2 Delivery O2 Flow Rate FiO2 12/17/19 16:00 97.9 77 18 122/45 (70) 97 12/17/19 12:00 98.2 72 18 119/62 (81) 98 12/17/19 09:00 Nasal Cannula 1.0 12/17/19 08:21 68 117/58 12/17/19 08:20 68 117/58 12/17/19 08:00 98.6 68 18 117/58 (77) 98 12/17/19 04:00 98.5 69 18 127/50 (75) 95 12/17/19 00:00 98.3 68 18 124/48 (73) 95 12/16/19 22:08 70 129/96 12/16/19 22:08 70 129/96 12/16/19 20:23 Nasal Cannula 1.0 12/16/19 20:00 97.7 70 18 129/96 (107) 98 Intake and Output 12/16/19 12/17/19 19:00 07:00 Intake Total 420 ml Output Total 200 ml 150 ml Balance 220 ml -150 ml Intake Free Water 60 ml Tube Feeding 360 ml Output Urine Total 200 ml 150 ml # Voids 2 Laboratory Tests Test 12/17/19 12:16 POC Whole Blood Glucose 178 MG/DL (74-106) H Objective NECK: No JVD. LUNGS: Clear. He has dialysis access in the right IJ. CARDIOVASCULAR: Irregular S1 and S2 with no gallop. ABDOMEN: Status post G-tube. EXTREMITIES: Status post bilateral transmetatarsal amputation. Chris Valentin MD Dec 17, 2019 16:53
[2019-12-17] MEDS: DiphenhydrAMINE 25mg/10ml Elixir NG PRN (17:02)
[2019-12-17 20:00] VITALS: BP 133/50
[2019-12-17] MEDS: Dyna-Hex 2% Top Sol 2oz TOPIC SCH (22:00)
[2019-12-17] MEDS: Epoetin Alfa-EPBX(ESRD on dialysis)10,000 unit/ml vial SUBQ SCH (22:00)
[2019-12-18] VITALS (12 sets, daily range): BP systolic 104–123; BP diastolic 39–59
[2019-12-18] MEDS: DiphenhydrAMINE 25mg/10ml Elixir NG PRN (00:53)
[2019-12-18] MEDS: Morphine Sulfate 10mg/5ml Oral Soln ud ORAL PRN ×3 (00:54→22:02)
[2019-12-18] MEDS: NovoLOG Insulin Flexpen SUBQ SCH ×4 (00:58→18:00)
[2019-12-18 07:52] LABS: BASOPHILS % (AUTO) 2.5 % (0.0-2.0); EOSINOPHILS % (AUTO) 1.3 % (0.0-3.0); HEMATOCRIT 32.9 % (42.0-52.0); HEMOGLOBIN 10.3 G/DL (14.2-18.0); LYMPHOCYTES % (AUTO) 18.6 % (20.0-45.0); MEAN CORPUSCULAR VOLUME 90 FL (80-99); MONOCYTES % (AUTO) 5.9 % (1.0-10.0); NEUTROPHILS % (AUTO) 71.7 % (45.0-75.0); PLATELET COUNT 281 K/UL (150-450); RED BLOOD COUNT 3.64 M/UL (4.70-6.10); RED CELL DISTRIBUTION WIDTH 17.1 % (11.6-14.8)
[2019-12-18 08:20] LABS: ALBUMIN 3.3 G/DL (3.4-5.0); ALBUMIN/GLOBULIN RATIO 0.8 (1.0-2.7); BILIRUBIN,TOTAL 0.6 MG/DL (0.2-1.0); CALCIUM 8.8 MG/DL (8.5-10.1); CREATININE 3.6 MG/DL (0.55-1.30); PHOSPHORUS 3.9 MG/DL (2.5-4.9); POTASSIUM 3.8 MMOL/L (3.5-5.1)
[2019-12-18] MEDS: Docusate 100mg/10ml Liq NG SCH ×3 (09:26→17:48)
[2019-12-18] MEDS: Amiodarone 200mg tab ORAL SCH ×2 (09:26→20:41)
[2019-12-18] MEDS: Metoprolol Tartrate 12.5mg TAB GT SCH ×2 (09:26→20:40)
[2019-12-18] MEDS: Eliquis 2.5mg tablet ORAL SCH ×2 (09:27→17:48)
--- NOTE | 2019-12-18 09:37 | Nephrology Progress Note ---
Assessment/Plan Problem List: (1) Respiratory distress (2) Diabetes mellitus (3) Hypertension (4) Renal failure (ARF), acute on chronic Assessment Patient's current problem is dyspnea Most likely volume overload versus pneumonitis Other conditions: Renal failure (ARF), acute on chronic h/o Metabolic acidosis h/oElectrolyte imbalance Hyponatremia and hyperkalemia h/oAnemia h/o CHF (congestive heart failure) Plan December 17: Patient dialyzed yesterday. Today's labs reviewed. Status quo. Continue per PMD. Next dialysis on FridayDecember 19. December 16: Patient due for dialysis today. Labs reviewed. Status unchanged. Continue with same management. December 15: Patient was dialyzed on December 13. Next dialysis December 16. Status quo. Labs reviewed. Medication list reviewed. Continue current treatment plan. December 14: Patient was dialyzed yesterday. No chemistry panel done today. Continue to monitor renal parameters and dialysis treatment as needed. Continue per consultants. December 13: Patient due for dialysis today. Labs reviewed. Patient is DNR. Confused. December 12: Last dialysis December 10. Labs reviewed. Medication list reviewed. Continue per current management. Check lab tomorrow, will arrange for dialysis as needed. December 11: Dialyzed yesterday. Status quo. Continue to monitor renal parameters and dialysis as needed. Continue per consultants. December 10: Due for dialysis today. No chemistry panel done today. We will continue to monitor renal parameters. Medication list reviewed. December 09: Last dialyzed December 06. Labs reviewed. Will order dialysis tomorrow. Continue current treatment plan. December 08: Last dialysis December 06. No chemistry panel today. Will check lab tomorrow. Hemodialysis as needed. December 07: Dialyzed yesterday. Labs reviewed. Stable from renal standpoint of view. December 06: Due for dialysis today. CBC and medication list reviewed. Con tinue per consultants. Hemoglobin drifting down. Will check CBC and chemistry panel tomorrow December 05: Labs reviewed. Serum creatinine up to 4.2. Calculated GFR 13. Last dialysis December 02. Will order dialysis tomorrow. December 04: Status quo. Labs reviewed. Continue per current management. December 03: Patient was dialyzed yesterday. Labs reviewed. Continue per current management. December 02: Due for dialysis today. Blood pressure medications on hold. Albumin 25% for BP support during dialysis. Continue to monitor renal parameters. December 01: Labs reviewed. Medication reviewed. Creatinine higher. Hemo dialysis for tomorrow. Continue rest. November 30: Patient was last dialyzed November 28. Not in any distress now. Appears to be more verbal today. Labs reviewed. Creatinine 3.8. Hemoglobin lower at 7.9. 1 dose of IV iron ordered. Subcu Epogen ordered. November 29: Dialyzed yesterday. Status quo. Will check chemistry panel tomorrow. Dialysis as needed. Continue per PMD and consultants. November 28: Due for dialysis and ultrafiltration today. Labs and medications reviewed. Blood pressure is stable. November 27: BNP rising. Not much urine output. Will dialyze and ultrafiltrate tomorrow. Labs reviewed. Continue to adjust blood pressure medications. Continue per consultants. November 26: Last dialysis November 24. Status quo. Labs reviewed. Medication list reviewed. Continue to monitor renal parameters. Dialysis as needed. November 25: Patient was dialyzed yesterday. Today is due for insertion of a GT tube. Patient pulled out his previous GT tube. Labs reviewed. Electrolytes abnormalities adjusted. Continue to monitor renal parameters. Patient is off BiPAP and on nasal cannula now. I believe that upon discharge the patient requires 2-3 times a week dialysis and ultrafiltration however upon discharge the patient needs to be followed by a quality worker in the facility that he goes to to assess on a regular basis the need and frequency for dialysis. November 24 : Late [place] [facility] [place] due for dialysis and ultrafiltration today. Labs reviewed. Chest x-ray results not available on EMR. Last dialysis November 21. Continue pulmonary toilet. Patient remains on BiPAP. Will check labs tomorrow. Subjective ROS Limited/Unobtainable: No Constitutional: Reports: malaise, weakness Objective Objective Last 24 Hour Vital Signs Date Time Temp Pulse Resp B/P (MAP) Pulse Ox O2 Delivery O2 Flow Rate FiO2 12/18/19 09:26 66 123/45 12/18/19 09:26 66 123/45 12/18/19 08:00 97.7 66 18 123/45 (71) 98 12/18/19 04:00 98.7 99 20 104/50 (68) 94 12/18/19 00:00 98.3 100 20 118/48 (71) 94 12/17/19 22:00 100 133/50 12/17/19 22:00 100 133/50 12/17/19 21:00 Nasal Cannula 1.0 12/17/19 20:00 98.0 100 20 133/50 (77) 94 12/17/19 19:07 98 Nasal Cannula 2.0 28 12/17/19 16:00 97.9 77 18 122/45 (70) 97 12/17/19 12:00 98.2 72 18 119/62 (81) 98 Intake and Output 12/17/19 12/18/19 19:00 07:00 Intake Total 40 ml 440 ml Output Total 2200 ml 300 ml Balance -2160 ml 140 ml Tube Feeding 40 ml 440 ml Output Urine Total 200 ml 300 ml Hemodialysis UF 2000 ml # Voids 1 # Bowel Movements 1 Laboratory Tests 12/17/19 12:16: POC Whole Blood Glucose 178H 12/17/19 16:56: POC Whole Blood Glucose 206H 12/18/19 00:46: POC Whole Blood Glucose 167H 12/18/19 07:20: White Blood Count 10.0, Red Blood Count 3.64L, Hemoglobin 10.3L, Hematocrit 32.9L, Mean Corpuscular Volume 90, Mean Corpuscular Hemoglobin 28.4, Mean Corpuscular Hemoglobin Concent 31.4L, Red Cell Distribution Width 17.1H, Platelet Count 281, Mean Platelet Volume 6.6, Neutrophils (%) (Auto) 71.7, Lymphocytes (%) (Auto) 18.6L, Monocytes (%) (Auto) 5.9, Eosinophils (%) (Auto) 1.3, Basophils (%) (Auto) 2.5H, Sodium Level 133L, Potassium Level 3.8, Chloride Level 96L, Carbon Dioxide Level 32, Anion Gap 5, Blood Urea Nitrogen 56H, Creatinine 3.6H, Estimat Glomerular Filtration Rate 16.4, Glucose Level 159H, Calcium Level 8.8, Phosphorus Level 3.9, Total Bilirubin 0.6, Aspartate Amino Transf (AST/SGOT) 23, Alanine Aminotransferase (ALT/SGPT) 14, Alkaline Phosphata se 232H, C-Reactive Protein, Quantitative 10.1H, Pro-B-Type Natriuretic Peptide 6985H, Total Protein 7.5, Albumin 3.3L, Globulin 4.2, Albumin/Globulin Ratio 0.8L Height (Feet): 5 Height (Inches): 5.00 Weight (Pounds): 169 General Appearance: no apparent distress, lethargic Cardiovascular: normal rate Respiratory/Chest: decreased breath sounds Abdomen: soft Objective No change Naveed Vanegas MD Dec 18, 2019 09:37
--- NOTE | 2019-12-18 10:03 | Pulmonology Progress Note ---
Reema Hanna CAUSTIC ROOM OPERATOR 12/18/19 1003: Subjective ROS Limited/Unobtainable: No Allergies: Coded Allergies: PENICILLINS (Verified Allergy, Unknown, 10/25/19) tolerated Ceftriaxone Uncoded Allergies: PENICILLIN (Allergy, Unknown, 11/23/19) All Systems: reviewed and negative except above Subjective on MS floor condition the same on O2 1- L via NC, pulse ox stable off BiPAP and continued to decline it no signs of resp distress code status changed to DNR/DNI on 12/06 by attending due to family wishes GI follows no diarrhea, HH remains at baseline tolerates GT feeding pain medications regimen optimized dc plan in process apparently challenging placement , unable to place so far, Objective Last 24 Hour Vital Signs Date Time Temp Pulse Resp B/P (MAP) Pulse Ox O2 Delivery O2 Flow Rate FiO2 12/18/19 09:26 66 123/45 12/18/19 09:26 66 123/45 12/18/19 08:00 97.7 66 18 123/45 (71) 98 12/18/19 04:00 98.7 99 20 104/50 (68) 94 12/18/19 00:00 98.3 100 20 118/48 (71) 94 12/17/19 22:00 100 133/50 12/17/19 22:00 100 133/50 12/17/19 21:00 Nasal Cannula 1.0 12/17/19 20:00 98.0 100 20 133/50 (77) 94 12/17/19 19:07 98 Nasal Cannula 2.0 28 12/17/19 16:00 97.9 77 18 122/45 (70) 97 12/17/19 12:00 98.2 72 18 119/62 (81) 98 Intake and Output 12/17/19 12/18/19 19:00 07:00 Intake Total 40 ml 440 ml Output Total 2200 ml 300 ml Balance -2160 ml 140 ml Tube Feeding 40 ml 440 ml Output Urine Total 200 ml 300 ml Hemodialysis UF 2000 ml # Voids 1 # Bowel Movements 1 Objective General Appearance: alert , confused, but more awake Mohawk speaking male, Lines, tubes and drains: peripheral HEENT: normocephalic, atraumatic, anicteric, O2 via NC Neck: supple Respiratory/Chest: lungs clear, no respiratory distress Cardiovascular/Chest: normal rate, Abdomen: non tender, soft, feeding tube - G tube Extremities: BL foot TMA Neurologic: abnormal gait, alert, confused, responsive Musculoskeletal: atrophy - BLE Laboratory Tests 12/17/19 12:16: POC Whole Blood Glucose 178H 12/17/19 16:56: POC Whole Blood Glucose 206H 12/18/19 00:46: POC Whole Blood Glucose 167H 12/18/19 07:20: White Blood Count 10.0, Red Blood Count 3.64L, Hemoglobin 10.3L, Hematocrit 32.9L, Mean Corpuscular Volume 90, Mean Corpuscular Hemoglobin 28.4, Mean Corpuscular Hemoglobin Concent 31.4L, Red Cell Distribution Width 17.1H, Platelet Count 281, Mean Platelet Volume 6.6, Neutrophils (%) (Auto) 71.7, Lymphocytes (%) (Auto) 18.6L, Monocytes (%) (Auto) 5.9, Eosinophils (%) (Auto) 1.3, Basophils (%) (Auto) 2.5H, Sodium Level 133L, Potassium Level 3.8, Chloride Level 96L, Carbon Dioxide Level 32, Anion Gap 5, Blood Urea Nitrogen 56H, Creati nine 3.6H, Estimat Glomerular Filtration Rate 16.4, Glucose Level 159H, Calcium Level 8.8, Phosphorus Level 3.9, Total Bilirubin 0.6, Aspartate Amino Transf (AST/SGOT) 23, Alanine Aminotransferase (ALT/SGPT) 14, Alkaline Phosphatase 232H , C-Reactive Protein, Quantitative 10.1H, Pro-B-Type Natriuretic Peptide 6985H, Total Protein 7.5, Albumin 3.3L, Globulin 4.2, Albumin/Globulin Ratio 0.8L Current Medications Medications (Trade) Dose Ordered Sig/Cammy Route PRN Reason Start Time Stop Time Status Last Admin Dose Admin Allopurinol (allopurinoL) 300 mg DAILY ORAL 11/26/19 10:30 12/24/19 10:29 12/18/19 09:26 Amiodarone HCl (Cordarone) 200 mg EVERY 12 HOURS ORAL 12/04/19 21:00 03/03/20 20:59 12/18/19 09:26 Amlodipine Besylate (Norvasc) 5 mg Q12HR GT 11/28/19 21:00 12/24/19 10:29 12/18/19 09:26 Apixaban (Eliquis) 2.5 mg BID ORAL 11/26/19 10:30 02/22/20 10:29 12/18/19 09:27 Atorvastatin Calcium (Lipitor) 10 mg BEDTIME ORAL 11/26/19 21:00 02/22/20 20:59 12/17/19 22:00 Chlorhexidine Gluconate (Yi-Hex 2%) 1 applic DAILY@2000 TOPIC 11/26/19 20:00 02/24/20 19:59 12/17/19 22:00 Dextrose (Dextrose 50%) 25 ml Q30M PRN IV Hypoglycemia 12/03/19 10:30 03/02/20 10:29 Dextrose (Dextrose 50%) 50 ml Q30M PRN IV Hypoglycemia 12/03/19 10:30 03/02/20 10:29 Diphenhydramine HCl (Benadryl) 25 mg Q8H PRN NG Itching 12/03/19 09:30 01/02/20 09:29 12/18/19 00:53 Docusate Sodium (Colace) 100 mg THREE TIMES A DAY NG 11/28/19 13:00 12/28/19 12:59 12/18/19 09:26 Epoetin William (Epoetin William(ESRD on dialysis)) 10,000 unit FRI-FRI-FRI SUBQ 12/01/19 21:00 02/29/20 20:59 12/17/19 22:00 Insulin Aspart (NovoLOG) Q6HR SUBQ 12/03/19 12:00 03/02/20 11:59 12/18/19 06:00 Lansoprazole (Prevacid) 30 mg DAILY GT 11/28/19 10:45 12/28/19 10:44 12/18/19 09:26 Metoprolol Tartrate (Lopressor) 12.5 mg Q12HR GT 11/29/19 09:00 02/27/20 08:59 12/18/19 09:26 Morphine Sulfate (Morphine 10mg/ 5ml Oral Soln) 1 mg Q6H PRN ORAL For Pain 12/14/19 14:29 12/21/19 14:28 12/18/19 00:54 Sennosides (Senokot) 8.6 mg DAILY PRN ORAL Constipation 11/26/19 10:30 12/26/19 10:29 Assessment/Plan Assessment/Plan ASSESSMENT Prior acute hypoxemic hypercapnic respiratory failure requiring BiPAP Chronic CO2 retention Possible DAYANA Aspiration risk s/p recent PNA Dysphagia , s/p PEG , pulled out, s/p replacement of PEG 11/16 Acute kidney injury on chronic kidney disease, requiring start of HD 10/30 Anemia of chronic kidney disease PAF/flutter- converted to SR Diabetes mellitus HTN PVD with hx of bilateral foot MTA Refusal of care PLAN OF CARE MS floor BiPAP at HS and prn , refusing again currently on O2 3 L via NC titrate O2, pulm toilet patient likely has DAYANA. recommend sleep study as OP CXR 11/28 mild vascular congestion and small bilateral pleural effusions, slightly improved when compared to October 31, 2019. No pneumothorax. Cardiomegaly. Calcified aorta. ABG prn rapid COVID NGT, BiPAP prn and HS-continued to refuse developed A flutter/ fib 12/03 seen by cardio already spontaneously converter to SR on a/c with Eliquis, rate controlled with BB ECHO with pEF 55-60% rate control with BB, HR stable on chronic a/c , was on hold for PEG, Eliquis afterwards resumed BP management with CCB and BB, optimize as needed continue statin ethics eval if pt can refuse BiPAP ( patient with dementia, confusion), daughter wants BiPAP and unclear how he refused if was on restraints? in our opinion BiPAP should be on standing order and available in the facility when patient will be transferred need formal polysomnogram to be done as OP bioethics eval appreciated, done 11/25 . per bioethics: pt with diminished capacity and does not understand the consequences of refusing bi-pap, yet it seems inhumane to force him to endure it recommended that he should be discharged to the SNF on nasal canula with instructions not to be sent back to the acute care hospital for refusal to accept bi-pap. bioethics offered to have a family conference to explain the reasoning if the family is willing to speak with us. SHERRIE spoke with daughter and ( through RN fbi special agent) re further GOC and code status 11/29 daughter and decided on DNR/DNI status , which was relayed to me by SHERRIE 12/02 Dr Pabon spoke with Dr Chang, code status changed on 9/15 to DNR/DNI dc plan to SNF ; SW discussed with family ( not want [facility]) , ongoing search for the facility completed Rx for PNA on prior admission Venous Duplex BLE 10/25 -> NGT aspir precautions, TF via GT f protein supplements GI follows pain management HH remains at baseline tolerates GT feeding bowel regimen, c/o intermittent abd pain, no n/v/diarrhea, tolerates GT feeding - per GI management HD as per nephro recs monitor volumes, renal paramerts, lytes s/p placement of permanent HD catheter R chest 11/07 s/p removal of temporary HD catheter by surgeon prior HgA1c -6.1 hold oral anti-glycemic monitor HH with goal to keep Hgb above 7 anemia w/up prior noted , heme on board on EPO GI prophayxlis supportive care dc plan in progress, challenging placement case discussed and evaluated by supervising physician Jonathon Pabon MD 12/18/19 1143: Subjective Allergies: Coded Allergies: PENICILLINS (Verified Allergy, Unknown, 10/25/19) tolerated Ceftriaxone Uncoded Allergies: PENICILLIN (Allergy, Unknown, 11/23/19) Assessment/Plan Assessment/Plan Patient seen and examined with CAUSTIC ROOM OPERATOR. Agree with above A&P as it reflects our j oifreddie deliberations. Reema Hanna NP Dec 18, 2019 10:03 Jonathon Pabon MD Dec 18, 2019 11:43
[2019-12-18] MEDS ORDERED: Naloxone 1mg/ml 2ml IVP ONE (12:30)
--- NOTE | 2019-12-18 13:06 | General Progress Note ---
Subjective Constitutional: Reports: no symptoms HEENT: Reports: no symptoms Cardiovascular: Reports: no symptoms Respiratory: Reports: no symptoms Gastrointestinal/Abdominal: Reports: no symptoms Genitourinary: Reports: no symptoms Neurologic/Psychiatric: Reports: no symptoms Endocrine: Reports: no symptoms Hematologic/Lymphatic: Reports: no symptoms Allergies: Coded Allergies: PENICILLINS (Verified Allergy, Unknown, 10/25/19) tolerated Ceftriaxone Uncoded Allergies: PENICILLIN (Allergy, Unknown, 11/23/19) Objective Last 24 Hour Vital Signs Date Time Temp Pulse Resp B/P (MAP) Pulse Ox O2 Delivery O2 Flow Rate FiO2 12/18/19 12:00 96.3 65 18 106/59 (75) 91 12/18/19 09:26 66 123/45 12/18/19 09:26 66 123/45 12/18/19 09:00 Nasal Cannula 1.0 12/18/19 08:00 97.7 66 18 123/45 (71) 98 12/18/19 04:00 98.7 99 20 104/50 (68) 94 12/18/19 00:00 98.3 100 20 118/48 (71) 94 12/17/19 22:00 100 133/50 12/17/19 22:00 100 133/50 12/17/19 21:00 Nasal Cannula 1.0 12/17/19 20:00 98.0 100 20 133/50 (77) 94 12/17/19 19:07 98 Nasal Cannula 2.0 28 12/17/19 16:00 97.9 77 18 122/45 (70) 97 Intake and Output 12/17/19 12/18/19 19:00 07:00 Intake Total 40 ml 440 ml Output Total 2200 ml 300 ml Balance -2160 ml 140 ml Tube Feeding 40 ml 440 ml Output Urine Total 200 ml 300 ml Hemodialysis UF 2000 ml # Voids 1 # Bowel Movements 1 Laboratory Tests 12/17/19 16:56: POC Whole Blood Glucose 206H 12/18/19 00:46: POC Whole Blood Glucose 167H 12/18/19 07:20: White Blood Count 10.0, Red Blood Count 3.64L, Hemoglobin 10.3L, Hematocrit 32.9L, Mean Corpuscular Volume 90, Mean Corpuscular Hemoglobin 28.4, Mean Corpuscular Hemoglobin Concent 31.4L, Red Cell Distribution Width 17.1H, Platelet Count 281, Mean Platelet Volume 6.6, Neutrophils (%) (Auto) 71.7, Lymphocytes (%) (Auto) 18.6L, Monocytes (%) (Auto) 5.9, Eosinophils (%) (Auto) 1.3, Basophils (%) (Auto) 2.5H, Sodium Level 133L, Potassium Level 3.8, Chloride Level 96L, Carbon Dioxide Level 32, Anion Gap 5, Blood Urea Nitrogen 56H, Creatinine 3.6H, Estimat Glomerular Filtration Rate 16.4, Glucose Level 159H, Calcium Level 8.8, Phosphorus Level 3.9, Total Bilirubin 0.6, Aspartate Amino Transf (AST/SGOT) 23, Alanine Aminotransferase (ALT/SGPT) 14, Alkaline Phosphatase 232H, C-Reactive Protein, Quantitative 10.1H, Pro-B-Type Natriuretic Peptide 6985H, Total Protein 7.5, Albumin 3.3L, Globulin 4.2, Albumin/Globulin Ratio 0.8L Height (Feet): 5 Height (Inches): 5.00 Weight (Pounds): 169 General Appearance: WD/WN, no apparent distress, alert EENT: normal ENT inspection Neck: supple Cardiovascular: normal rate, regular rhythm, regularly irregular, no gallop/murmur, no JVD Respiratory/Chest: lungs clear, normal breath sounds, no respiratory distress, no accessory muscle use Abdomen: normal bowel sounds, non tender, soft, no organomegaly, no mass Extremities: non-tender, normal inspection Neurologic: alert, oriented x 3, responsive Skin: warm/dry Assessment/Plan Status: stable Status Narrative Patient is awake alert oriented without distress his restraints will removed as he agreed not to pull on his G-tube and in addition has abdominal binder and it appears that he sticks to his promises to honestly he was rejected by 10 mg of morphine instead of 1 mg but he is currently doing well and did not require any Narcan at least for now he has been assessed by other physician as well Patient underwent dialysis yesterday and 1 L of fluid was removed another dialysis was is scheduled for next Friday It is quite while the patient is fulfilled discharge criteria however there are still difficulties with accepted facility repeat laboratory tests will be done i n a.m. Ayush Joe MD, MD Dec 18, 2019 13:06
--- NOTE | 2019-12-18 16:03 | Cardiac Electrophysiology PN ---
Assessment/Plan Assessment/Plan 1. Atrial flutter confirmed with 12-lead EKG. EF 55%. Ruled out for [place] protocol. Continue Amiodarone 200 bid, metoprolol 12.5 mg b.i.d. and Eliquis. 2. Hypertension, on metoprolol 12.5 mg bid , amlodipine 5 mg b.i.d. and HD 3. Hyperlipidemia, on Lipitor. 4. End-stage renal disease, on hemodialysis. 5. Diabetes on insulin. 6. DNR/DNI 7. COPD, off BiPAP. 8. Peripheral vascular disease, status post bilateral transmetatarsal amputation. 9. S/P PEG DW RN DC planning Friday after HD Subjective Subjective Confused in restraints. PEG feeding on Abx. RN at bedside. DC planning Friday after HD Objective Last 24 Hour Vital Signs Date Time Temp Pulse Resp B/P (MAP) Pulse Ox O2 Delivery O2 Flow Rate FiO2 12/18/19 12:00 96.3 65 18 106/59 (75) 91 12/18/19 09:26 66 123/45 12/18/19 09:26 66 123/45 12/18/19 09:00 Nasal Cannula 1.0 12/18/19 08:00 97.7 66 18 123/45 (71) 98 12/18/19 04:00 98.7 99 20 104/50 (68) 94 12/18/19 00:00 98.3 100 20 118/48 (71) 94 12/17/19 22:00 100 133/50 12/17/19 22:00 100 133/50 12/17/19 21:00 Nasal Cannula 1.0 12/17/19 20:00 98.0 100 20 133/50 (77) 94 12/17/19 19:07 98 Nasal Cannula 2.0 28 Intake and Output 12/17/19 12/18/19 19:00 07:00 Intake Total 40 ml 440 ml Output Total 2200 ml 300 ml Balance -2160 ml 140 ml Tube Feeding 40 ml 440 ml Output Urine Total 200 ml 300 ml Hemodialysis UF 2000 ml # Voids 1 # Bowel Movements 1 Laboratory Tests Test 12/17/19 16:56 12/18/19 00:46 12/18/19 07:20 POC Whole Blood Glucose 206 MG/DL (74-106) H 167 MG/DL (74-106) H White Blood Count 10.0 K/UL (4.8-10.8) Red Blood Count 3.64 M/UL (4.70-6.10) L Hemoglobin 10.3 G/DL (14.2-18.0) L Hematocrit 32.9 % (42.0-52.0) L Mean Corpuscular Volume 90 FL (80-99) Mean Corpuscular Hemoglobin 28.4 PG (27.0-31.0) Mean Corpuscular Hemoglobin Concent 31.4 G/DL (32.0-36.0) L Red Cell Distribution Width 17.1 % (11.6-14.8) H Platelet Count 281 K/UL (150-450) Mean Platelet Volume 6.6 FL (6.5-10.1) Neutrophils (%) (Auto) 71.7 % (45.0-75.0) Lymphocytes (%) (Auto) 18.6 % (20.0-45.0) L Monocytes (%) (Auto) 5.9 % (1.0-10.0) Eosinophils (%) (Auto) 1.3 % (0.0-3.0) Basophils (%) (Auto) 2.5 % (0.0-2.0) H Sodium Level 133 MMOL/L (136-145) L Potassium Level 3.8 MMOL/L (3.5-5.1) Chloride Level 96 MMOL/L (98-107) L Carbon Dioxide Level 32 MMOL/L (21-32) Anion Gap 5 mmol/L (5-15) Blood Urea Nitrogen 56 mg/dL (7-18) H Creatinine 3.6 MG/DL (0.55-1.30) H Estimat Glomerular Filtration Rate 16.4 mL/min (>60) Glucose Level 159 MG/DL (74-106) H Calcium Level 8.8 MG/DL (8.5-10.1) Phosphorus Level 3.9 MG/DL (2.5-4.9) Total Bilirubin 0.6 MG/DL (0.2-1.0) Aspartate Amino Transf (AST/SGOT) 23 U/L (15-37) Alanine Aminotransferase (ALT/SGPT) 14 U/L (12-78) Alkaline Phosphatase 232 U/L (46-116) H C-Reactive Protein, Quantitative 10.1 mg/dL (0.00-0.90) H Pro-B-Type Natriuretic Peptide 6985 pg/mL (0-125) H Total Protein 7.5 G/DL (6.4-8.2) Albumin 3.3 G/DL (3.4-5.0) L Globulin 4.2 g/dL Albumin/Globulin Ratio 0.8 (1.0-2.7) L Objective NECK: No JVD. LUNGS: Clear. He has dialysis access in the right IJ. CARDIOVASCULAR: Irregular S1 and S2 with no gallop. ABDOMEN: Status post G-tube. EXTREMITIES: Status post bilateral transmetatarsal amputation. Chris Valentin MD Dec 18, 2019 16:03
[2019-12-18] MEDS: Dyna-Hex 2% Top Sol 2oz TOPIC SCH (20:40)
[2019-12-19] VITALS: BP 118/48
[2019-12-19] MEDS: NovoLOG Insulin Flexpen SUBQ SCH ×5 (00:25→23:29)
[2019-12-19 04:00] VITALS: BP 114/42
[2019-12-19 07:28] LABS: BASOPHILS % (AUTO) 0.6 % (0.0-2.0); EOSINOPHILS % (AUTO) 1.2 % (0.0-3.0); HEMATOCRIT 32.4 % (42.0-52.0); HEMOGLOBIN 9.9 G/DL (14.2-18.0); LYMPHOCYTES % (AUTO) 15.6 % (20.0-45.0); MEAN CORPUSCULAR VOLUME 91 FL (80-99); MONOCYTES % (AUTO) 3.7 % (1.0-10.0); NEUTROPHILS % (AUTO) 78.9 % (45.0-75.0); PLATELET COUNT 295 K/UL (150-450); RED BLOOD COUNT 3.56 M/UL (4.70-6.10); RED CELL DISTRIBUTION WIDTH 16.8 % (11.6-14.8); WHITE BLOOD COUNT 14.5 K/UL (4.8-10.8)
[2019-12-19 08:00] VITALS: BP 106/38
[2019-12-19] MEDS: Docusate 100mg/10ml Liq NG SCH ×3 (09:00→18:30)
[2019-12-19] MEDS: Metoprolol Tartrate 12.5mg TAB GT SCH ×2 (09:00→20:18)
[2019-12-19] MEDS: Amiodarone 200mg tab ORAL SCH ×2 (09:05→20:18)
[2019-12-19] MEDS: Eliquis 2.5mg tablet ORAL SCH ×2 (09:05→18:30)
--- NOTE | 2019-12-19 10:06 | Pulmonology Progress Note ---
Reema Hanna COMPOSITION BOARD PRESS OPERATOR 12/19/19 1006: Subjective ROS Limited/Unobtainable: No Allergies: Coded Allergies: PENICILLINS (Verified Allergy, Unknown, 10/25/19) tolerated Ceftriaxone Uncoded Allergies: PENICILLIN (Allergy, Unknown, 11/23/19) All Systems: reviewed and negative except above Subjective on MS floor leuk today, no fevers on O2 1- L via NC, pulse ox stable off BiPAP and continued to decline it no signs of resp distress code status changed to DNR/DNI on 12/06 by attending due to family wishes Objective Last 24 Hour Vital Signs Date Time Temp Pulse Resp B/P (MAP) Pulse Ox O2 Delivery O2 Flow Rate FiO2 12/19/19 09:00 70 106/38 12/19/19 09:00 70 106/38 12/19/19 08:37 98 Nasal Cannula 2.0 28 12/19/19 08:00 98.1 70 20 106/38 (60) 100 12/19/19 04:00 98.2 66 19 114/42 (66) 95 12/19/19 00:00 97.7 64 20 118/48 (71) 99 12/18/19 21:12 97 Nasal Cannula 2.0 28 12/18/19 21:00 Nasal Cannula 2.0 12/18/19 20:40 70 114/44 12/18/19 20:37 70 114/44 12/18/19 20:00 98.4 70 20 114/44 (67) 97 12/18/19 16:00 98.0 65 18 115/45 (68) 96 12/18/19 13:30 68 20 117/44 (68) 97 12/18/19 13:06 63 18 107/47 (67) 98 12/18/19 12:51 63 20 109/42 (64) 97 12/18/19 12:36 97.2 64 18 111/39 (63) 91 12/18/19 12:00 96.3 65 18 106/59 (75) 91 Intake and Output 12/18/19 12/19/19 19:00 07:00 Intake Total 560 ml 680 ml Output Total 300 ml 200 ml Balance 260 ml 480 ml Intake Free Water 120 ml 200 ml Tube Feeding 440 ml 480 ml Output Urine Total 300 ml 200 ml # Bowel Movements 2 1 Objective General Appearance: alert , confused, but more awake Citizen Of [place] speaking male, Lines, tubes and drains: peripheral HEENT: normocephalic, atraumatic, anicteric, O2 via NC Neck: supple Respiratory/Chest: lungs clear, no respiratory distress Cardiovascular/Chest: normal rate, Abdomen: non tender, soft, feeding tube - G tube Extremities: BL foot TMA Neurologic: abnormal gait, alert, confused, responsive Musculoskeletal: atrophy - BLE Laboratory Tests 12/19/19 06:25: White Blood Count 14.5H, Red Blood Count 3.56L, Hemoglobin 9.9L, Hematocrit 32.4L, Mean Corpuscular Volume 91, Mean Corpuscular Hemoglobin 27.8, Mean Corpuscular Hemoglobin Concent 30.6L, Red Cell Distribution Width 16.8H, Platelet Count 295, Mean Platelet Volume 6.2L, Neutrophils (%) (Auto) 78.9H, Lymphocytes (%) (Auto) 15.6L, Monocytes (%) (Auto) 3.7, Eosinophils (%) (Auto) 1.2, Basophils (%) (Auto) 0.6 Current Medications Medications (Trade) Dose Ordered Sig/Cammy Route PRN Reason Start Time Stop Time Status Last Admin Dose Admin Allopurinol (allopurinoL) 300 mg DAILY ORAL 11/26/19 10:30 12/24/19 10:29 12/19/19 09:04 Amiodarone HCl (Cordarone) 200 mg EVERY 12 HOURS ORAL 12/04/19 21:00 03/03/20 20:59 12/19/19 09:05 Amlodipine Besylate (Norvasc) 5 mg Q12HR GT 11/28/19 21:00 12/24/19 10:29 12/18/19 09:26 Apixaban (Eliquis) 2.5 mg BID ORAL 11/26/19 10:30 02/22/20 10:29 12/19/19 09:05 Atorvastatin Calcium (Lipitor) 10 mg BEDTIME ORAL 11/26/19 21:00 02/22/20 20:59 12/18/19 20:41 Chlorhexidine Gluconate (Yi-Hex 2%) 1 applic DAILY@1999 TOPIC 11/26/19 20:00 02/24/20 19:59 12/18/19 20:40 Dextrose (Dextrose 50%) 25 ml Q30M PRN IV Hypoglycemia 12/03/19 10:30 03/02/20 10:29 Dextrose (Dextrose 50%) 50 ml Q30M PRN IV Hypoglycemia 12/03/19 10:30 03/02/20 10:29 Diphenhydramine HCl (Benadryl) 25 mg Q8H PRN NG Itching 12/03/19 09:30 01/02/20 09:29 12/18/19 00:53 Docusate Sodium (Colace) 100 mg THREE TIMES A DAY NG 11/28/19 13:00 12/28/19 12:59 12/18/19 09:26 Epoetin William (Epoetin William(ESRD on dialysis)) 10,000 unit FRI-FRI-FRI SUBQ 12/01/19 21:00 02/29/20 20:59 12/17/19 22:00 Insulin Aspart (NovoLOG) Q6HR SUBQ 12/03/19 12:00 03/02/20 11:59 12/19/19 06:44 Lansoprazole (Prevacid) 30 mg DAILY GT 11/28/19 10:45 12/28/19 10:44 12/19/19 09:05 Metoprolol Tartrate (Lopressor) 12.5 mg Q12HR GT 11/29/19 09:00 02/27/20 08:59 12/18/19 20:40 Morphine Sulfate (Morphine 10mg/ 5ml Oral Soln) 1 mg Q6H PRN ORAL For Pain 12/14/19 14:29 12/21/19 14:28 12/18/19 22:02 Sennosides (Senokot) 8.6 mg DAILY PRN ORAL Constipation 11/26/19 10:30 12/26/19 10:29 Assessment/Plan Assessment/Plan ASSESSMENT Prior acute hypoxemic hypercapnic respiratory failure requiring BiPAP Chronic CO2 retention Possible DAYANA Aspiration risk s/p recent PNA Dysphagia , s/p PEG , pulled out, s/p replacement of PEG 11/16 Acute kidney injury on chronic kidney disease, requiring start of HD 10/30 Anemia of chronic kidney disease PAF/flutter- converted to SR Diabetes mellitus HTN PVD with hx of bilateral foot MTA Refusal of care PLAN OF CARE MS floor BiPAP at HS and prn , refusing again currently on O2 1 L via NC titrate O2, pulm toilet will get CXR today given leukocytosis patient likely has DAYANA. recommend sleep study as OP CXR 11/28 mild vascular congestion and small bilateral pleural effusions, slightly improved when compared to October 31, 2019. No pneumothorax. Cardiomegaly. Calcified aorta. ABG prn rapid COVID NGT, BiPAP prn and HS-continued to refuse developed A flutter/ fib 12/03 seen by cardio already spontaneously converter to SR on a/c with Eliquis, rate controlled with BB ECHO with pEF 55-60% rate control with BB, HR stable on chronic a/c , was on hold for PEG, Eliquis afterwards resumed BP management with CCB and BB, optimize as needed continue statin ethics eval if pt can refuse BiPAP ( patient with dementia, confusion), daughter wants BiPAP and unclear how he refused if was on restraints? in our opinion BiPAP should be on standing order and available in the facility when patient will be transferred need formal polysomnogram to be done as OP bioethics eval appreciated, done 11/25 . per bioethics: pt with diminished capacity and does not understand the consequences of refusing bi-pap, yet it seems inhumane to force him to endure it recommended that he should be discharged to the SNF on nasal canula with instructions not to be sent back to the acute care hospital for refusal to accept bi-pap. bioethics offered to have a family conference to explain the reasoning if the family is willing to speak with us. SHERRIE spoke with daughter and ( through RN director of casino) re further GOC and code status 11/29 daughter and decided on DNR/DNI status , which was relayed to me by SHERRIE 12/02 Dr Pabon spoke with Dr Chang, code status changed on 12/06 to DNR/DNI dc plan to SNF ; SHERRIE discussed with family ( not want [facility] [place]) , ongoing search for the facility completed Rx for PNA on prior admission Venous Duplex BLE 10/25 -> NGT aspir precautions, TF via GT f protein supplements GI follows pain management HH remains at baseline tolerates GT feeding bowel regimen, c/o intermittent abd pain, no n/v/diarrhea, tolerates GT feeding - per GI management HD as per nephro recs monitor volumes, renal paramerts, lytes s/p placement of permanent HD catheter R chest 11/07 s/p removal of temporary HD catheter by surgeon prior HgA1c -6.1 hold oral anti-glycemic monitor HH with goal to keep Hgb above 7 anemia w/up prior noted , heme on board on EPO GI prophayxlis supportive care dc plan in progress, challenging placement case discussed and evaluated by supervising physician Jonathon Pabon MD 12/20/19 1500: Subjective Allergies: Coded Allergies: PENICILLINS (Verified Allergy, Unknown, 10/25/19) tolerated Ceftriaxone Uncoded Allergies: PENICILLIN (Allergy, Unknown, 11/23/19) Assessment/Plan Assessment/Plan Patient seen and examined with COMPOSITION BOARD PRESS OPERATOR. Agree with above A&P as it reflects our joint deliberations. Reema Hanna NP Dec 19, 2019 10:06 Jonathon Pabon MD Dec 20, 2019 15:00
[2019-12-19 12:00] VITALS: BP 124/46
--- NOTE | 2019-12-19 12:04 | Diagnostic Imaging Report ---
EXAM: XR Chest, 1 View CLINICAL HISTORY: SOB TECHNIQUE: Frontal view of the chest. COMPARISON: Chest radiograph on 11/29/2019 FINDINGS: Hardware: Stable right dual-lumen central venous catheter which terminates near the junction of the SVC and right atrium. Lungs/pleura: Similar right lung opacity, predominantly in the right mid and lower lung. Similar to slightly increased left basilar opacity. Probable trace right greater than left pleural effusions. Heart/mediastinum: Stable mild enlargement of the cardiac silhouette. Atherosclerotic calcifications of the aorta. Soft tissues: Unremarkable. Bones: No acute fracture. Degenerative changes of the acromioclavicular joints. Upper abdomen: G-tube projected over the left upper quadrant. IMPRESSION: 1. Stable right dual-lumen central venous catheter which terminates near the junction of the SVC and right atrium. 2. Similar right lung opacity, predominantly in the right mid and lower lung. Similar to slightly increased left basilar opacity. Findings may represent atelectasis versus infectious/inflammatory process versus asymmetric edema. Probable trace right greater than left pleural effusions.
--- NOTE | 2019-12-19 13:12 | Nephrology Progress Note ---
Assessment/Plan Problem List: (1) Respiratory distress (2) Diabetes mellitus (3) Hypertension (4) Renal failure (ARF), acute on chronic Assessment Patient's current problem is dyspnea Most likely volume overload versus pneumonitis Other conditions: Renal failure (ARF), acute on chronic h/o Metabolic acidosis h/oElectrolyte imbalance Hyponatremia and hyperkalemia h/oAnemia h/o CHF (congestive heart failure) Plan December 18: Today's lab results still pending. Last dialyzed December 16. Next dialysis tomorrow December 19. Continue to monitor renal parameters and electrolytes. Continue per consultants. December 17: Patient dialyzed yesterday. Today's labs reviewed. Status quo. Continue per PMD. Next dialysis on FridayDecember 19. December 16: Patient due for dialysis today. Labs reviewed. Status unchanged. Continue with same management. December 15: Patient was dialyzed on December 13. Next dialysis December 16. Status quo. Labs reviewed. Medication list reviewed. Continue current treatment plan. December 14: Patient was dialyzed yesterday. No chemistry panel done today. Continue to monitor renal parameters and dialysis treatment as needed. Continue per consultants. December 13: Patient due for dialysis today. Labs reviewed. Patient is DNR. Confused. December 12: Last dialysis December 10. Labs reviewed. Medication list reviewed. Continue per current management. Check lab tomorrow, will arrange fo r dialysis as needed. December 11: Dialyzed yesterday. Status quo. Continue to monitor renal parameters and dialysis as needed. Continue per consultants. December 10: Due for dialysis today. No chemistry panel done today. We will continue to monitor renal parameters. Medication list reviewed. December 09: Last dialyzed December 06. Labs reviewed. Will order dialysis tomorrow. Continue current treatment plan. December 08: Last dialysis December 06. No chemistry panel today. Will check lab tomorrow. Hemodialysis as needed. December 07: Dialyzed yesterday. Labs reviewed. Stable from renal standpoint of view. December 06: Due for dialysis today. CBC and medication list reviewed. Continue per consultants. Hemoglobin drifting down. Will check CBC and chemistry panel tomorrow December 05: Labs reviewed. Serum creatinine up to 4.2. Calculated GFR 13. Last dialysis December 02. Will order dialysis tomorrow. December 04: Status quo. Labs reviewed. Continue per current management. December 03: Patient was dialyzed yesterday. Labs reviewed. Continue per current management. December 02: Due for dialysis today. Blood pressure medications on hold. Albumin 25% for BP support during dialysis. Continue to monitor renal parameters. December 01: Labs reviewed. Medication reviewed. Creatinine higher. Hemodialysis for tomorrow. Continue rest. November 30: Patient was last dialyzed November 28. Not in any distress now. Appears to be more verbal today. Labs reviewed. Creatinine 3.8. Hemoglobin lower at 7.9. 1 dose of IV iron ordered. Subcu Epogen ordered. November 29: Dialyzed yesterday. Status quo. Will check chemistry panel tomorrow. Dialysis as needed. Continue per PMD and consultants. November 28: Due for dialysis and ultrafiltration today. Labs and medications reviewed. Blood pressure is stable. November 27: BNP rising. Not much urine output. Will dialyze and ultrafiltrate tomorrow. Labs reviewed. Continue to adjust blood pressure medications. Continue per consultants. November 26: Last dialysis November 24. Status quo. Labs reviewed. Medication list reviewed. Continue to monitor renal parameters. Dialysis as needed. November 25: Patient was dialyzed yesterday. Today is due for insertion of a GT tube. Patient pulled out his previous GT tube. Labs reviewed. Electrolytes abnormalities adjusted. Continue to monitor renal parameters. Patient is off BiPAP and on nasal cannula now. I believe that upon discharge the patient requires 2-3 times a week dialysis and ultrafiltration however upon discharge the patient needs to be followed by a ocularist in the facility that he goes to to assess on a regular basis the need and frequency for dialysis. November 24 : Late note entry due to system problem at the [facility] today. Patient due for dialysis and ultrafiltration today. Labs reviewed. Chest x-ray results not available on EMR. Last dialysis November 21. Continue pulmonary toilet. Patient remains on BiPAP. Will check labs tomorrow. Subjective ROS Limited/Unobtainable: No Constitutional: Reports: malaise Objective Objective Last 24 Hour Vital Signs Date Time Temp Pulse Resp B/P (MAP) Pulse Ox O2 Delivery O2 Flow Rate FiO2 12/19/19 12:00 98.1 72 20 124/46 (72) 98 12/19/19 09:00 70 106/38 12/19/19 09:00 70 106/38 12/19/19 09:00 Nasal Cannula 2.0 12/19/19 08:37 98 Nasal Cannula 2.0 28 12/19/19 08:00 98.1 70 20 106/38 (60) 100 12/19/19 04:00 98.2 66 19 114/42 (66) 95 12/19/19 00:00 97.7 64 20 118/48 (71) 99 12/18/19 21:12 97 Nasal Cannula 2.0 28 12/18/19 21:00 Nasal Cannula 2.0 12/18/19 20:40 70 114/44 12/18/19 20:37 70 114/44 12/18/19 20:00 98.4 70 20 114/44 (67) 97 12/18/19 16:00 98.0 65 18 115/45 (68) 96 12/18/19 13:30 68 20 117/44 (68) 97 Intake and Output 12/18/19 12/19/19 19:00 07:00 Intake Total 560 ml 680 ml Output Total 300 ml 200 ml Balance 260 ml 480 ml Intake Free Water 120 ml 200 ml Tube Feeding 440 ml 480 ml Output Urine Total 300 ml 200 ml # Bowel Movements 2 1 Current Medications Medications (Trade) Dose Ordered Sig/Cammy Route PRN Reason Start Time Stop Time Status Last Admin Dose Admin Allopurinol (allopurinoL) 300 mg DAILY ORAL 11/26/19 10:30 12/24/19 10:29 12/19/19 09:04 Amiodarone HCl (Cordarone) 200 mg EVERY 12 HOURS ORAL 12/04/19 21:00 03/03/20 20:59 12/19/19 09:05 Amlodipine Besylate (Norvasc) 5 mg Q12HR GT 11/28/19 21:00 12/24/19 10:29 12/18/19 09:26 Apixaban (Eliquis) 2.5 mg BID ORAL 11/26/19 10:30 02/22/20 10:29 12/19/19 09:05 Atorvastatin Calcium (Lipitor) 10 mg BEDTIME ORAL 11/26/19 21:00 02/22/20 20:59 12/18/19 20:41 Chlorhexidine Gluconate (Yi-Hex 2%) 1 applic DAILY@1999 TOPIC 11/26/19 20:00 02/24/20 19:59 12/18/19 20:40 Dextrose (Dextrose 50%) 25 ml Q30M PRN IV Hypoglycemia 12/03/19 10:30 03/02/20 10:29 Dextrose (Dextrose 50%) 50 ml Q30M PRN IV Hypoglycemia 12/03/19 10:30 03/02/20 10:29 Diphenhydramine HCl (Benadryl) 25 mg Q8H PRN NG Itching 12/03/19 09:30 01/02/20 09:29 12/18/19 00:53 Docusate Sodium (Colace) 100 mg THREE TIMES A DAY NG 11/28/19 13:00 12/28/19 12:59 12/18/19 09:26 Epoetin William (Epoetin William(ESRD on dialysis)) 10,000 unit SUBQ 12/01/19 21:00 02/29/20 20:59 12/17/19 22:00 Insulin Aspart (NovoLOG) Q6HR SUBQ 12/03/19 12:00 03/02/20 11:59 12/19/19 12:10 Lansoprazole (Prevacid) 30 mg DAILY GT 11/28/19 10:45 12/28/19 10:44 12/19/19 09:05 Metoprolol Tartrate (Lopressor) 12.5 mg Q12HR GT 11/29/19 09:00 02/27/20 08:59 12/18/19 20:40 Morphine Sulfate (Morphine 10mg/ 5ml Oral Soln) 1 mg Q6H PRN ORAL For Pain 12/14/19 14:29 12/21/19 14:28 12/18/19 22:02 Sennosides (Senokot) 8.6 mg DAILY PRN ORAL Constipation 11/26/19 10:30 12/26/19 10:29 Laboratory Tests 12/19/19 06:25: White Blood Count 14.5H, Red Blood Count 3.56L, Hemoglobin 9.9L, Hematocrit 32.4L, Mean Corpuscular Volume 91, Mean Corpuscular Hemoglobin 27.8, Mean Corpuscular Hemoglobin Concent 30.6L, Red Cell Distribution Width 16.8H, Platelet Count 295, Mean Platelet Volume 6.2L, Neutrophils (%) (Auto) 78.9H, Lymphocytes (%) (Auto) 15.6L, Monocytes (%) (Auto) 3.7, Eosinophils (%) (Auto) 1.2, Basophils (%) (Auto) 0.6 Height (Feet): 5 Height (Inches): 5.00 Weight (Pounds): 169 General Appearance: no apparent distress Cardiovascular: normal rate Respiratory/Chest: decreased breath sounds Abdomen: soft Objective No change Naveed Vanegas MD Dec 19, 2019 13:11
--- NOTE | 2019-12-19 13:27 | Cardiac Electrophysiology PN ---
Assessment/Plan Assessment/Plan 1. Atrial flutter confirmed with 12-lead EKG. EF 55%. Ruled out for SD protocol. Continue Amiodarone 200 bid, metoprolol 12.5 mg b.i.d. and Eliquis. 2. Hypertension, on metoprolol 12.5 mg bid , amlodipine 5 mg b.i.d. and HD 3. Hyperlipidemia, on Lipitor. 4. End-stage renal disease, on hemodialysis. 5. Diabetes on insulin. 6. DNR/DNI 7. COPD, off BiPAP. 8. Peripheral vascular disease, status post bilateral transmetatarsal amputation. 9. S/P PEG DW RN DC planning Friday after HD Subjective Subjective Confused. PEG feeding on Abx. RN at bedside. DC planning Friday after HD. Off restraints today Objective Last 24 Hour Vital Signs Date Time Temp Pulse Resp B/P (MAP) Pulse Ox O2 Delivery O2 Flow Rate FiO2 12/19/19 12:00 98.1 72 20 124/46 (72) 98 12/19/19 09:00 70 106/38 12/19/19 09:00 70 106/38 12/19/19 09:00 Nasal Cannula 2.0 12/19/19 08:37 98 Nasal Cannula 2.0 28 12/19/19 08:00 98.1 70 20 106/38 (60) 100 12/19/19 04:00 98.2 66 19 114/42 (66) 95 12/19/19 00:00 97.7 64 20 118/48 (71) 99 12/18/19 21:12 97 Nasal Cannula 2.0 28 12/18/19 21:00 Nasal Cannula 2.0 12/18/19 20:40 70 114/44 12/18/19 20:37 70 114/44 12/18/19 20:00 98.4 70 20 114/44 (67) 97 12/18/19 16:00 98.0 65 18 115/45 (68) 96 12/18/19 13:30 68 20 117/44 (68) 97 Intake and Output 12/18/19 12/19/19 19:00 07:00 Intake Total 560 ml 680 ml Output Total 300 ml 200 ml Balance 260 ml 480 ml Intake Free Water 120 ml 200 ml Tube Feeding 440 ml 480 ml Output Urine Total 300 ml 200 ml # Bowel Movements 2 1 Laboratory Tests Test 12/19/19 06:25 White Blood Count 14.5 K/UL (4.8-10.8) H Red Blood Count 3.56 M/UL (4.70-6.10) L Hemoglobin 9.9 G/DL (14.2-18.0) L Hematocrit 32.4 % (42.0-52.0) L Mean Corpuscular Volume 91 FL (80-99) Mean Corpuscular Hemoglobin 27.8 PG (27.0-31.0) Mean Corpuscular Hemoglobin Concent 30.6 G/DL (32.0-36.0) L Red Cell Distribution Width 16.8 % (11.6-14.8) H Platelet Count 295 K/UL (150-450) Mean Platelet Volume 6.2 FL (6.5-10.1) L Neutrophils (%) (Auto) 78.9 % (45.0-75.0) H Lymphocytes (%) (Auto) 15.6 % (20.0-45.0) L Monocytes (%) (Auto) 3.7 % (1.0-10.0) Eosinophils (%) (Auto) 1.2 % (0.0-3.0) Basophils (%) (Auto) 0.6 % (0.0-2.0) Objective NECK: No JVD. LUNGS: Clear. He has dialysis access in the right IJ. CARDIOVASCULAR: Irregular S1 and S2 with no gallop. ABDOMEN: Status post G-tube. EXTREMITIES: Status post bilateral transmetatarsal amputation. Chris Valentin MD Dec 19, 2019 13:27
--- NOTE | 2019-12-19 14:09 | Hematology/Onc Progress Note ---
Assessment/Plan Assessment/Plan ASSESSMENT AND RECOMMENDATIONS: # Anemia of chronic disease due to underlying chronic medical issues, multifactorial --> Anemia w/u has been reviewed. --> no evidence of hemolysis is noted, peripheral smear has been reviewed --> hgb goal is >7, transfuse as needed --> currently remains stable, occult blood negative --> hgb 8.4->8.6->8.3->8->8.2->9.2-->9.2->8.9-->8.1-->8.7>9.4-->8.7-->8->7.8->7.5-->7.4- ->7.5-->8.1-->8-->8.1-->9.5->7.9-->7.6-->7.5-->9.9-->8.8-->9.1->9.6-->9.4 --> 1 unit prbc 12/03 --> some blood loss due to hematuria after inflated reyes pulled 8/6 am --> EPOGEN to continue # Thrombocytopenia is likely due to infection --> plt trend 180-->149-->274 --> on abx as needed --> hep and hiv neg #. Leukocytosis with underlying infectionv stress reaction HISTORY --> per id and better --> for infection, ABX ctx/vanc-->off --> wbc 10-->5.9 # Acute kidney injury r/o potential reversible component --> reviewed meds, those that are renally cleared removed --> as per renal recs, appreciated --> cr 3.5-->4.2-->3.4->3.3 --> Hd started and dw renal # Hypertension, essential --> sbp goal is <140, consider anti-htn as needed --> currently started on hyralazine 25mg po q6h prn sbp >140 # CHF - hx of CHf --> diuresis with lasix as needed --> cardiology recs appreciated prior adm #. Bilateral lower extremity amputee, metatarsal several years ago --> stable #. Atrial fibrillation --> as per cards recs #. Dysphagia s/p peg --> peg pulled out and now with gtube 11/25 #. Hyperkalemia --> kayxelate as needed #. Agitation requires restraints #. Dvt ppx scds --> xarelto=> off-->eliquis-->off-->eliquis The time the note was entered does not necessarily correspond to the time the patient was seen. GREATLY APPRECIATE CONSULTATION. Subjective Constitutional: Denies: no symptoms, chills, fever, malaise, weakness, other HEENT: Denies: no symptoms, eye pain, blurred vision, tearing, double vision, ear pain, ear discharge, nose pain, nose congestion, throat pain, throat swelling, mouth pain, mouth swelling, other Cardiovascular: Denies: no symptoms, chest pain, edema, irregular heart rate, lightheadedness, palpitations, syncope, other Respiratory: Denies: no symptoms, cough, shortness of breath, SOB with excertion, SOB at rest, sputum, wheezing, other Gastrointestinal/Abdominal: Denies: no symptoms, abdomen distended, abdominal pain, black stools, tarry stools, blood in stool, constipated, diarrhea, difficulty swallowing, nausea, poor appetite, poor fluid intake, rectal bleeding, vomiting, other Genitourinary: Denies: no symptoms, burning, discharge, frequency, flank pain, hematuria, incontinence, pain, urgency, other Neurologic/Psychiatric: Denies: no symptoms, anxiety, depressed, emotional problems, headache, numbness, paresthesia, pre-existing deficit, seizure, tingling, tremors, weakness, other Endocrine: Denies: no symptoms, excessive sweating, flushing, intolerance to cold, intolerance to heat, increased hunger, increased thirst, increased urine, unexplained weight gain, unexplained weight loss, other Allergies: Coded Allergies: PENICILLINS (Verified Allergy, Unknown, 10/25/19) tolerated Ceftriaxone Uncoded Allergies: PENICILLIN (Allergy, Unknown, 11/23/19) Subjective 11/23 came back from new sn[facility] due to lack of bipap capability, hgb 7.5 11/24 labs reviewed, remains sob, with a hgb 8.1, no bleeding, jag rn, hold off prbc 11/25 labs are noted, for egd and peg in the am, jag rn, on nc 11/27 getting 3l nc overnight, has been refusing bipap unfortunately, hgb stable 11/28 labs noted, with gtube feeds, again this am refusing bipap 11/29 is on 2l nc, with gtube feeds, hgb 9.5, no bleeding 11/30 labs are noted, no bleeding, on gtube feeds, on 2l nc 12/01 meds noted, no bleeding, hgb 7.9 yesterday, on nc 12/02 is on nepro and on 2l, hgb 7.6, c/o itching, have started benadryl q 8h prn 12/04 labs reviewed, coverning for Dr. Chang, no bleeding, meds noted, wants restraints off 12/05 labs are noted, no bleeding, no night sweats, with gtube feeds ongoing 12/06 labs reviewed, no bleeding, meds noted, no major changes, peg+ 12/07 on wrist restraints, gtube was pulled out overnight, no bleedng 12/10 no acute events, nc 2l, bilat wrist restraints, eliquis 12/11 labs are noted, labs reviewed, is on 2l, agitated again 12/12 is awake, alert, no bleeding, meds reviewed, no night sweats, hgb 9.1 12/13 labs reviewed, is on 1l nc, no bleeding, meds noted, hgb 9.6 12/14 on 2l nc, no bleeding, labs noted, meds reviewed, no major changes 12/15 is on 1l nc, no bleeding, meds noted, no bleeding, dw rn 12/16 labs noted, no bleeding, meds noted, no f/c, no night sweats 12/18 continue on amio, epo and eliquis, labs are noted, no bleeding, comfortable this am Objective Objective Current Medications Medications (Trade) Dose Ordered Sig/Cammy Route PRN Reason Start Time Stop Time Status Last Admin Dose Admin Allopurinol (allopurinoL) 300 mg DAILY ORAL 11/26/19 10:30 12/24/19 10:29 12/19/19 09:04 Amiodarone HCl (Cordarone) 200 mg EVERY 12 HOURS ORAL 12/04/19 21:00 03/03/20 20:59 12/19/19 09:05 Amlodipine Besylate (Norvasc) 5 mg Q12HR GT 11/28/19 21:00 12/24/19 10:29 12/18/19 09:26 Apixaban (Eliquis) 2.5 mg BID ORAL 11/26/19 10:30 02/22/20 10:29 12/19/19 09:05 Atorvastatin Calcium (Lipitor) 10 mg BEDTIME ORAL 11/26/19 21:00 02/22/20 20:59 12/18/19 20:41 Chlorhexidine Gluconate (Yi-Hex 2%) 1 applic DAILY@1999 TOPIC 11/26/19 20:00 02/24/20 19:59 12/18/19 20:40 Dextrose (Dextrose 50%) 25 ml Q30M PRN IV Hypoglycemia 12/03/19 10:30 03/02/20 10:29 Dextrose (Dextrose 50%) 50 ml Q30M PRN IV Hypoglycemia 12/03/19 10:30 03/02/20 10:29 Diphenhydramine HCl (Benadryl) 25 mg Q8H PRN NG Itching 12/03/19 09:30 01/02/20 09:29 12/18/19 00:53 Docusate Sodium (Colace) 100 mg THREE TIMES A DAY NG 11/28/19 13:00 12/28/19 12:59 12/18/19 09:26 Epoetin William (Epoetin William(ESRD on dialysis)) 10,000 unit SUBQ 12/01/19 21:00 02/29/20 20:59 12/17/19 22:00 Insulin Aspart (NovoLOG) Q6HR SUBQ 12/03/19 12:00 03/02/20 11:59 12/19/19 12:10 Lansoprazole (Prevacid) 30 mg DAILY GT 11/28/19 10:45 12/28/19 10:44 12/19/19 09:05 Metoprolol Tartrate (Lopressor) 12.5 mg Q12HR GT 11/29/19 09:00 02/27/20 08:59 12/18/19 20:40 Morphine Sulfate (Morphine 10mg/ 5ml Oral Soln) 1 mg Q6H PRN ORAL For Pain 12/14/19 14:29 12/21/19 14:28 12/18/19 22:02 Sennosides (Senokot) 8.6 mg DAILY PRN ORAL Constipation 11/26/19 10:30 12/26/19 10:29 Last 24 Hour Vital Signs Date Time Temp Pulse Resp B/P (MAP) Pulse Ox O2 Delivery O2 Flow Rate FiO2 12/19/19 12:00 98.1 72 20 124/46 (72) 98 12/19/19 09:00 70 106/38 12/19/19 09:00 70 106/38 12/19/19 09:00 Nasal Cannula 2.0 12/19/19 08:37 98 Nasal Cannula 2.0 28 12/19/19 08:00 98.1 70 20 106/38 (60) 100 12/19/19 04:00 98.2 66 19 114/42 (66) 95 12/19/19 00:00 97.7 64 20 118/48 (71) 99 12/18/19 21:12 97 Nasal Cannula 2.0 28 12/18/19 21:00 Nasal Cannula 2.0 12/18/19 20:40 70 114/44 12/18/19 20:37 70 114/44 12/18/19 20:00 98.4 70 20 114/44 (67) 97 12/18/19 16:00 98.0 65 18 115/45 (68) 96 12/18/19 13:30 68 20 117/44 (68) 97 12/18/19 13:06 63 18 107/47 (67) 98 12/18/19 12:51 63 20 109/42 (64) 97 12/18/19 12:36 97.2 64 18 111/39 (63) 91 12/18/19 12:00 96.3 65 18 106/59 (75) 91 12/18/19 09:26 66 123/45 12/18/19 09:26 66 123/45 12/18/19 09:00 Nasal Cannula 1.0 12/18/19 08:45 96 Nasal Cannula 2.0 28 12/18/19 08:00 97.7 66 18 123/45 (71) 98 12/18/19 04:00 98.7 99 20 104/50 (68) 94 12/18/19 00:00 98.3 100 20 118/48 (71) 94 12/17/19 22:00 100 133/50 12/17/19 22:00 100 133/50 12/17/19 21:00 Nasal Cannula 1.0 12/17/19 20:00 98.0 100 20 133/50 (77) 94 12/17/19 19:07 98 Nasal Cannula 2.0 28 12/17/19 16:00 97.9 77 18 122/45 (70) 97 Intake and Output0 12/18/19 12/19/19 19:00 07:00 Intake Total 560 ml 680 ml Output Total 300 ml 200 ml Balance 260 ml 480 ml Intake Free Water 120 ml 200 ml Tube Feeding 440 ml 480 ml Output Urine Total 300 ml 200 ml # Bowel Movements 2 1 Labs Test 12/17/19 12:16 12/17/19 16:56 12/18/19 00:46 12/18/19 07:20 POC Whole Blood Glucose 178 MG/DL (74-106) 206 MG/DL (74-106) 167 MG/DL (74-106) White Blood Count 10.0 K/UL (4.8-10.8) Red Blood Count 3.64 M/UL (4.70-6.10) Hemoglobin 10.3 G/DL (14.2-18.0) Hematocrit 32.9 % (42.0-52.0) Mean Corpuscular Volume 90 FL (80-99) Mean Corpuscular Hemoglobin 28.4 PG (27.0-31.0) Mean Corpuscular Hemoglobin Concent 31.4 G/DL (32.0-36.0) Red Cell Distribution Width 17.1 % (11.6-14.8) Platelet Count 281 K/UL (150-450) Mean Platelet Volume 6.6 FL (6.5-10.1) Neutrophils (%) (Auto) 71.7 % (45.0-75.0) Lymphocytes (%) (Auto) 18.6 % (20.0-45.0) Monocytes (%) (Auto) 5.9 % (1.0-10.0) Eosinophils (%) (Auto) 1.3 % (0.0-3.0) Basophils (%) (Auto) 2.5 % (0.0-2.0) Sodium Level 133 MMOL/L (136-145) Potassium Level 3.8 MMOL/L (3.5-5.1) Chloride Level 96 MMOL/L (98-107) Carbon Dioxide Level 32 MMOL/L (21-32) Anion Gap 5 mmol/L (5-15) Blood Urea Nitrogen 56 mg/dL (7-18) Creatinine 3.6 MG/DL (0.55-1.30) Estimat Glomerular Filtration Rate 16.4 mL/min (>60) Glucose Level 159 MG/DL (74-106) Calcium Level 8.8 MG/DL (8.5-10.1) Phosphorus Level 3.9 MG/DL (2.5-4.9) Total Bilirubin 0.6 MG/DL (0.2-1.0) Aspartate Amino Transf (AST/SGOT) 23 U/L (15-37) Alanine Aminotransferase (ALT/SGPT) 14 U/L (12-78) Alkaline Phosphatase 232 U/L (46-116) C-Reactive Protein, Quantitative 10.1 mg/dL (0.00-0.90) Pro-B-Type Natriuretic Peptide 6985 pg/mL (0-125) Total Protein 7.5 G/DL (6.4-8.2) Albumin 3.3 G/DL (3.4-5.0) Globulin 4.2 g/dL Albumin/Globulin Ratio 0.8 (1.0-2.7) Test 12/19/19 06:25 White Blood Count 14.5 K/UL (4.8-10.8) Red Blood Count 3.56 M/UL (4.70-6.10) Hemoglobin 9.9 G/DL (14.2-18.0) Hematocrit 32.4 % (42.0-52.0) Mean Corpuscular Volume 91 FL (80-99) Mean Corpuscular Hemoglobin 27.8 PG (27.0-31.0) Mean Corpuscular Hemoglobin Concent 30.6 G/DL (32.0-36.0) Red Cell Distribution Width 16.8 % (11.6-14.8) Platelet Count 295 K/UL (150-450) Mean Platelet Volume 6.2 FL (6.5-10.1) Neutrophils (%) (Auto) 78.9 % (45.0-75.0) Lymphocytes (%) (Auto) 15.6 % (20.0-45.0) Monocytes (%) (Auto) 3.7 % (1.0-10.0) Eosinophils (%) (Auto) 1.2 % (0.0-3.0) Basophils (%) (Auto) 0.6 % (0.0-2.0) Height (Feet): 5 Height (Inches): 5.00 Weight (Pounds): 169 Objective GENERAL: Not in acute distress. HEENT: ncat PULMONARY: Decreased breath sounds. ++ bipap v nc+ CHEST: ++permacath right chest CARDIOVASCULAR: Regular rate. No S3 or S4. ABDOMEN: Soft, nontender, nondistended.++reyes in site of old gtube EXTREMITIES: 1+ edema. No cyanosis, swelling, or edema. 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 Melvin Rizzo MD Dec 19, 2019 14:09
[2019-12-19 16:00] VITALS: BP 130/58
[2019-12-19 16:32] LABS: CALCIUM 8.9 MG/DL (8.5-10.1); CREATININE 5.4 MG/DL (0.55-1.30); POTASSIUM 4.2 MMOL/L (3.5-5.1)
[2019-12-19 16:36] LABS: ALBUMIN 2.8 G/DL (3.4-5.0); ALBUMIN/GLOBULIN RATIO 0.7 (1.0-2.7); BILIRUBIN,TOTAL 0.5 MG/DL (0.2-1.0)
[2019-12-19 20:00] VITALS: BP 126/46
[2019-12-19] MEDS: Dyna-Hex 2% Top Sol 2oz TOPIC SCH (20:17)
[2019-12-19] MEDS: Morphine Sulfate 10mg/5ml Oral Soln ud ORAL PRN (20:17)
[2019-12-20] VITALS: BP 126/46
[2019-12-20 04:00] VITALS: BP 128/48
[2019-12-20] MEDS: NovoLOG Insulin Flexpen SUBQ SCH ×3 (06:07→17:51)
[2019-12-20 08:00] VITALS: BP 112/48
[2019-12-20] MEDS: Metoprolol Tartrate 12.5mg TAB GT SCH ×2 (09:00→22:56)
[2019-12-20] MEDS: Eliquis 2.5mg tablet ORAL SCH ×2 (09:28→17:44)
[2019-12-20] MEDS: Docusate 100mg/10ml Liq NG SCH ×3 (09:28→17:44)
[2019-12-20] MEDS: Amiodarone 200mg tab ORAL SCH (09:28)
[2019-12-20] MEDS: Morphine Sulfate 10mg/5ml Oral Soln ud ORAL PRN ×2 (09:28→20:46)
--- NOTE | 2019-12-20 10:15 | Pulmonology Progress Note ---
Reema Hanna AUTOMOTIVE MACHINIST APPRENTICE 12/20/19 1015: Subjective ROS Limited/Unobtainable: No Allergies: Coded Allergies: PENICILLINS (Verified Allergy, Unknown, 10/25/19) tolerated Ceftriaxone Uncoded Allergies: PENICILLIN (Allergy, Unknown, 11/23/19) All Systems: reviewed and negative except above Subjective on [facility] floor leuk 12/18, CBC for this am pending, fever last night CXR 12/18 with findings representing atelectasis versus infectious/inflammatory process versus asymmetric edema. on O2 1- L via NC, pulse ox stable off BiPAP and continued to decline it no signs of resp distress code status changed to DNR/DNI on 12/06 by attending due to family wishes Objective Last 24 Hour Vital Signs Date Time Temp Pulse Resp B/P (MAP) Pulse Ox O2 Delivery O2 Flow Rate FiO2 12/20/19 04:00 97.5 78 20 128/48 (74) 97 12/20/19 00:00 99.2 69 21 126/46 (72) 94 12/19/19 21:00 Nasal Cannula 1.0 12/19/19 20:20 99 Nasal Cannula 2.0 28 12/19/19 20:18 83 126/96 12/19/19 20:18 83 126/96 12/19/19 20:00 100.0 83 17 126/46 (72) 99 12/19/19 16:00 98.3 77 20 130/58 (82) 97 12/19/19 12:00 98.1 72 20 124/46 (72) 98 Intake and Output 12/19/19 12/20/19 18:59 06:59 Intake Total 730 ml 885 ml Output Total 1000 ml Balance -270 ml 885 ml Intake Free Water 220 ml 300 ml Tube Feeding 510 ml 585 ml Output Urine Total 1000 ml # Voids 2 # Bowel Movements 2 1 Objective General Appearance: alert , confused, but more awake Singaporean speaking male, Lines, tubes and drains: peripheral HEENT: normocephalic, atraumatic, anicteric, O2 via NC Neck: supple Respiratory/Chest: lungs clear, no respiratory distress Cardiovascular/Chest: normal rate, Abdomen: non tender, soft, feeding tube - G tube Extremities: BL foot TMA Neurologic: abnormal gait, alert, confused, responsive Musculoskeletal: atrophy - BLE Laboratory Tests 12/19/19 15:51: Sodium Level 132L, Potassium Level 4.2, Chloride Level 93L, Carbon Dioxide Level 26, Anion Gap 13, Blood Urea Nitrogen 86H, Creatinine 5.4H, Estimat Glomerular Filtration Rate 10.2, Glucose Level 178H, Calcium Level 8.9, Total Bilirubin 0.5, Aspartate Amino Transf (AST/SGOT) 28, Alanine Aminotransferase (ALT/SGPT) 22, Alkaline Phosphatase 294H, Total Protein 6.9, Albumin 2.8L, Globulin 4.1, Albumin/Globulin Ratio 0.7L 12/20/19 04:20: White Blood Count [Pending], Red Blood Count [Pending], Hemoglobin [Pending], H ematocrit [Pending], Mean Corpuscular Volume [Pending], Mean Corpuscular Hemoglobin [Pending], Mean Corpuscular Hemoglobin Concent [Pending], Red Cell Distribution Width [Pending], Platelet Count [Pending], Mean Platelet Volume [Pending], Neutrophils (%) (Auto) [Pending], Lymphocytes (%) (Auto) [Pending], Monocytes (%) (Auto) [Pending], Eosinophils (%) (Auto) [Pending], Basophils (%) (Auto) [Pending], Phosphorus Level [Pending], Magnesium Level [Pending] Current Medications Medications (Trade) Dose Ordered Sig/Cammy Route PRN Reason Start Time Stop Time Status Last Admin Dose Admin Allopurinol (allopurinoL) 300 mg DAILY ORAL 11/26/19 10:30 12/24/19 10:29 12/20/19 09:28 Amiodarone HCl (Cordarone) 200 mg EVERY 12 HOURS ORAL 12/04/19 21:00 03/03/20 20:59 12/20/19 09:28 Amlodipine Besylate (Norvasc) 5 mg Q12HR GT 11/28/19 21:00 12/24/19 10:29 12/19/19 20:18 Apixaban (Eliquis) 2.5 mg BID ORAL 11/26/19 10:30 02/22/20 10:29 12/20/19 09:28 Atorvastatin Calcium (Lipitor) 10 mg BEDTIME ORAL 11/26/19 21:00 02/22/20 20:59 12/19/19 20:18 Chlorhexidine Gluconate (Yi-Hex 2%) 1 applic DAILY@2000 TOPIC 11/26/19 20:00 02/24/20 19:59 12/19/19 20:17 Dextrose (Dextrose 50%) 25 ml Q30M PRN IV Hypoglycemia 12/03/19 10:30 03/02/20 10:29 Dextrose (Dextrose 50%) 50 ml Q30M PRN IV Hypoglycemia 12/03/19 10:30 03/02/20 10:29 Diphenhydramine HCl (Benadryl) 25 mg Q8H PRN NG Itching 12/03/19 09:30 01/02/20 09:29 12/18/19 00:53 Docusate Sodium (Colace) 100 mg THREE TIMES A DAY NG 11/28/19 13:00 12/28/19 12:59 12/20/19 09:28 Epoetin William (Epoetin William(ESRD on dialysis)) 10,000 unit FRI-FRI-FRI SUBQ 12/01/19 21:00 02/29/20 20:59 12/17/19 22:00 Insulin Aspart (NovoLOG) Q6HR SUBQ 12/03/19 12:00 03/02/20 11:59 12/20/19 06:07 Lansoprazole (Prevacid) 30 mg DAILY GT 11/28/19 10:45 12/28/19 10:44 12/20/19 09:28 Metoprolol Tartrate (Lopressor) 12.5 mg Q12HR GT 11/29/19 09:00 02/27/20 08:59 12/19/19 20:18 Morphine Sulfate (Morphine 10mg/ 5ml Oral Soln) 1 mg Q6H PRN ORAL For Pain 12/14/19 14:29 12/21/19 14:28 12/20/19 09:28 Sennosides (Senokot) 8.6 mg DAILY PRN ORAL Constipation 11/26/19 10:30 12/26/19 10:29 Assessment/Plan Assessment/Plan ASSESSMENT Prior acute hypoxemic hypercapnic respiratory failure requiring BiPAP Chronic CO2 retention Possible DAYANA Aspiration risk ? possible PNA; s/p recent PNA Dysphagia , s/p PEG , pulled out, s/p replacement of PEG 11/16 Acute kidney injury on chronic kidney disease, requiring start of HD 10/30 Anemia of chronic kidney disease PAF/flutter- converted to SR Diabetes mellitus HTN PVD with hx of bilateral foot MTA Refusal of care PLAN OF CARE [facility] floor BiPAP at HS and prn , refusing again currently on O2 1 L via NC titrate O2, pulm toilet CXR 11/28 mild vascular congestion and small bilateral pleural effusions, slightly improved when compared to October 31, 2019. No pneumothorax. Cardiomegaly. Calcified aorta. leukocytosis 12/18, fever 12/18 evening CXR 12/18 Similar right lung opacity, predominantly in the right mid and lower lung. Similar to slightly increased left basilar opacity. Findings may represent atelectasis versus infectious/inflammatory process versus asymmetric edema consider starting abx and ID consult will get UA and cx and BCX ( prior hx of MRSA blood in 2018 ) ABG prn rapid COVID NGT, BiPAP prn and HS-continued to refuse patient likely has DAYANA. recommend sleep study as OP developed A flutter/ fib 12/03 seen by cardio already spontaneously converter to SR on a/c with Eliquis, rate controlled with BB ECHO with pEF 55-60% rate control with BB, HR stable on chronic a/c , was on hold for PEG, Eliquis afterwards resumed BP management with CCB and BB, optimize as needed continue statin ethics eval if pt can refuse BiPAP ( patient with dementia, confusion), daughter wants BiPAP and unclear how he refused if was on restraints? in our opinion BiPAP should be on standing order and available in the facility w hen patient will be transferred need formal polysomnogram to be done as OP bioethics eval appreciated, done 11/25 . per bioethics: pt with diminished capacity and does not understand the consequences of refusing bi-pap, yet it seems inhumane to force him to endure it recommended that he should be discharged to the SNF on nasal canula with instructions not to be sent back to the acute care hospital for refusal to accept bi-pap. bioethics offered to have a family conference to explain the reasoning if the family is willing to speak with us. SHERRIE spoke with daughter and ( through RN technology architect) re further GOC and code status 11/29 daughter and decided on DNR/DNI status , which was relayed to me by SHERRIE 12/02 Dr Pabon spoke with Dr Chang, code status changed on 12/06 to DNR/DNI dc plan to SNF ; SW discussed with family ( not want [facility]) , ongoing search for the facility completed Rx for PNA on prior admission Venous Duplex BLE 10/25 -> NGT aspir precautions, TF via GT f protein supplements GI follows pain management HH remains at baseline tolerates GT feeding bowel regimen, c/o intermittent abd pain, no n/v/diarrhea, tolerates GT feeding - per GI management HD as per nephro recs monitor volumes, renal paramerts, lytes s/p placement of permanent HD catheter R chest 11/07 s/p removal of temporary HD catheter by surgeon prior HgA1c -6.1 hold oral anti-glycemic monitor HH with goal to keep Hgb above 7 anemia w/up prior noted , heme on board on EPO GI prophayxlis supportive care dc plan in progress, challenging placement case discussed and evaluated by supervising physician Jonathon Pabon MD 12/20/19 1501: Subjective Allergies: Coded Allergies: PENICILLINS (Verified Allergy, Unknown, 10/25/19) tolerated Ceftriaxone Uncoded Allergies: PENICILLIN (Allergy, Unknown, 11/23/19) Assessment/Plan Assessment/Plan Patient seen and examined with AUTOMOTIVE MACHINIST APPRENTICE. Agree with above A&P as it reflects our joint deliberations. Reema Hanna NP Dec 20, 2019 10:15 Jonathon Pabon MD Dec 20, 2019 15:01
--- NOTE | 2019-12-20 10:27 | Cardiac Electrophysiology PN ---
Assessment/Plan Assessment/Plan 1. Atrial flutter confirmed with 12-lead EKG. EF 55%. Ruled out for [facility] protocol. Decrease Amiodarone to 200 po daily , metoprolol 12.5 mg b.i.d. and Eliquis. 2. Hypertension, on Metoprolol 12.5 mg bid , Amlodipine 5 mg b.i.d. and HD 3. Hyperlipidemia, on Lipitor. 4. End-stage renal disease, on hemodialysis. 5. Diabetes on insulin. 6. DNR/DNI 7. COPD, off BiPAP. 8. Peripheral vascular disease, status post bilateral transmetatarsal amputation. 9. S/P PEG DW RN DC planning today after HD Subjective Subjective Confused. PEG feeding on Abx. RN at bedside. DC planning today after HD. Off restraints Objective Last 24 Hour Vital Signs Date Time Temp Pulse Resp B/P (MAP) Pulse Ox O2 Delivery O2 Flow Rate FiO2 12/20/19 04:00 97.5 78 20 128/48 (74) 97 12/20/19 00:00 99.2 69 21 126/46 (72) 94 12/19/19 21:00 Nasal Cannula 1.0 12/19/19 20:20 99 Nasal Cannula 2.0 28 12/19/19 20:18 83 126/96 12/19/19 20:18 83 126/96 12/19/19 20:00 100.0 83 17 126/46 (72) 99 12/19/19 16:00 98.3 77 20 130/58 (82) 97 12/19/19 12:00 98.1 72 20 124/46 (72) 98 l Intake and Output 12/19/19 12/20/19 19:00 07:00 Intake Total 780 ml 695 ml Output Total 1000 ml Balance -220 ml 695 ml Intake Free Water 220 ml 200 ml Tube Feeding 560 ml 495 ml Output Urine Total 1000 ml # Voids 2 # Bowel Movements 2 1 Laboratory Tests Test 12/19/19 15:51 12/20/19 04:20 Sodium Level 132 MMOL/L (136-145) L Potassium Level 4.2 MMOL/L (3.5-5.1) Chloride Level 93 MMOL/L (98-107) L Carbon Dioxide Level 26 MMOL/L (21-32) Anion Gap 13 mmol/L (5-15) Blood Urea Nitrogen 86 mg/dL (7-18) H Creatinine 5.4 MG/DL (0.55-1.30) H Estimat Glomerular Filtration Rate 10.2 mL/min (>60) Glucose Level 178 MG/DL (74-106) H Calcium Level 8.9 MG/DL (8.5-10.1) Total Bilirubin 0.5 MG/DL (0.2-1.0) Aspartate Amino Transf (AST/SGOT) 28 U/L (15-37) Alanine Aminotransferase (ALT/SGPT) 22 U/L (12-78) Alkaline Phosphatase 294 U/L (46-116) H Total Protein 6.9 G/DL (6.4-8.2) Albumin 2.8 G/DL (3.4-5.0) L Globulin 4.1 g/dL Albumin/Globulin Ratio 0.7 (1.0-2.7) L White Blood Count Pending Red Blood Count Pending Hemoglobin Pending Hematocrit Pending Mean Corpuscular Volume Pending Mean Corpuscular Hemoglobin Pending Mean Corpuscular Hemoglobin Concent Pending Red Cell Distribution Width Pending Platelet Count Pending Mean Platelet Volume Pending Neutrophils (%) (Auto) Pending Lymphocytes (%) (Auto) Pending Monocytes (%) (Auto) Pending Eosinophils (%) (Auto) Pending Basophils (%) (Auto) Pending Phosphorus Level Pending Magnesium Level Pending Objective NECK: No JVD. LUNGS: Clear. He has dialysis access in the right IJ. CARDIOVASCULAR: Irregular S1 and S2 with no gallop. ABDOMEN: Status post G-tube. EXTREMITIES: Status post bilateral transmetatarsal amputation. Chris Valentin MD Dec 20, 2019 10:27
--- NOTE | 2019-12-20 11:40 | Nephrology Progress Note ---
Assessment/Plan Problem List: (1) Respiratory distress (2) Diabetes mellitus (3) Hypertension (4) Renal failure (ARF), acute on chronic Assessment Patient's current problem is dyspnea Most likely volume overload versus pneumonitis Other conditions: Renal failure (ARF), acute on chronic h/o Metabolic acidosis h/oElectrolyte imbalance Hyponatremia and hyperkalemia h/oAnemia h/o CHF (congestive heart failure) Plan December 19: Patient due for dialysis today. Today's labs pending. Continue per consultants. December 18: Today's lab results still pending. Last dialyzed December 16. Next dialysis tomorrow December 19. Continue to monitor renal parameters and electrolytes. Continue per consultants. December 17: Patient dialyzed yesterday. Today's labs reviewed. Status quo. Continue per PMD. Next dialysis on FridayDecember 19. December 16: Patient due for dialysis today. Labs reviewed. Status unchanged. Continue with same management. December 15: Patient was dialyzed on December 13. Next dialysis December 16. Status quo. Labs reviewed. Medication list reviewed. Continue current treatment plan. December 14: Patient was dialyzed yesterday. No chemistry panel done today. Continue to monitor renal parameters and dialysis treatment as needed. Continue per consultants. December 13: Patient due for dialysis today. Labs reviewed. Patient is DNR. Confused. December 12: Last dialysis December 10. Labs reviewed. Medication list reviewed. Continue per current management. Check lab tomorrow, will arrange for dialysis as needed. December 11: Dialyzed yesterday. Status quo. Continue to monitor renal parameters and dialysis as needed. Continue per consultants. December 10: Due for dialysis today. No chemistry panel done today. We will continue to monitor renal parameters. Medication list reviewed. December 09: Last dialyzed December 06. Labs reviewed. Will order dialysis tomorrow. Continue current treatment plan. December 08: Last dialysis December 06. No chemistry panel today. Will check lab tomorrow. Hemodialysis as needed. December 07: Dialyzed yesterday. Labs reviewed. Stable from renal standpoint of view. December 06: Due for dialysis today. CBC and medication list reviewed. Continue per consultants. Hemoglobin drifting down. Will check CBC and chemistry panel tomorrow December 05: Labs reviewed. Serum creatinine up to 4.2. Calculated GFR 13. Last dialysis December 02. Will order dialysis tomorrow. December 04: Status quo. Labs reviewed. Continue per current management. December 03: Patient was dialyzed yesterday. Labs reviewed. Continue per current management. December 02: Due for dialysis today. Blood pressure medications on hold. Albumin 25% for BP support during dialysis. Continue to monitor renal parameters. December 01: Labs reviewed. Medication reviewed. Creatinine higher. Hemodialysis for tomorrow. Continue rest. November 30: Patient was last dialyzed November 28. Not in any distress now. Appears to be more verbal today. Labs reviewed. Creatinine 3.8. Hemoglobin lower at 7.9. 1 dose of IV iron ordered. Subcu Epogen ordered. November 29: Dialyzed yesterday. Status quo. Will check chemistry panel tomorrow. Dialysis as needed. Continue per PMD and consultants. November 28: Due for dialysis and ultrafiltration today. Labs and medications reviewed. Blood pressure is stable. November 27: BNP rising. Not much urine output. Will dialyze and ultrafiltrate tomorrow. Labs reviewed. Continue to adjust blood pressure medications. Continue per consultants. November 26: Last dialysis November 24. Status quo. Labs reviewed. Medication list reviewed. Continue to monitor renal parameters. Dialysis as needed. November 25: Patient was dialyzed yesterday. Today is due for insertion of a GT tube. Patient pulled out his previous GT tube. Labs reviewed. Electrolytes abnormalities adjusted. Continue to monitor renal parameters. Patient is off BiPAP and on nasal cannula now. I believe that upon discharge the patient requires 2-3 times a week dialysis and ultrafiltration however upon discharge the patient needs to be followed by a bull riveter in the facility that he goes to to assess on a regular basis the need and frequency for dialysis. November 24 : Late note entry due to system problem at the [facility] today. Patient due for dialysis and ultrafiltration today. Labs reviewed. Chest x-ray results not available on EMR. Last dialysis November 21. Continue pulmonary toilet. Patient remains on BiPAP. Will check labs tomorrow. Subjective ROS Limited/Unobtainable: No Constitutional: Reports: malaise Objective Objective Last 24 Hour Vital Signs Date Time Temp Pulse Resp B/P (MAP) Pulse Ox O2 Delivery O2 Flow Rate FiO2 12/20/19 09:00 81 112/48 12/20/19 09:00 81 112/48 12/20/19 09:00 Nasal Cannula 1.0 12/20/19 08:00 98.1 81 20 112/48 (69) 96 12/20/19 04:00 97.5 78 20 128/48 (74) 97 12/20/19 00:00 99.2 69 21 126/46 (72) 94 12/19/19 21:00 Nasal Cannula 1.0 12/19/19 20:20 99 Nasal Cannula 2.0 28 12/19/19 20:18 83 126/96 12/19/19 20:18 83 126/96 12/19/19 20:00 100.0 83 17 126/46 (72) 99 12/19/19 16:00 98.3 77 20 130/58 (82) 97 12/19/19 12:00 98.1 72 20 124/46 (72) 98 Intake and Output 12/19/19 12/20/19 19:00 07:00 Intake Total 780 ml 695 ml Output Total 1000 ml Balance -220 ml 695 ml Intake Free Water 220 ml 200 ml Tube Feeding 560 ml 495 ml Output Urine Total 1000 ml # Voids 2 # Bowel Movements 2 1 Laboratory Tests 12/19/19 15:51: Sodium Level 132L, Potassium Level 4.2, Chloride Level 93L, Carbon Dioxide Level 26, Anion Gap 13, Blood Urea Nitrogen 86H, Creatinine 5.4H, Estimat Glomerular F iltration Rate 10.2, Glucose Level 178H, Calcium Level 8.9, Total Bilirubin 0.5, Aspartate Amino Transf (AST/SGOT) 28, Alanine Aminotransferase (ALT/SGPT) 22, Alkaline Phosphatase 294H, Total Protein 6.9, Albumin 2.8L, Globulin 4.1, Albumin/Globulin Ratio 0.7L 12/20/19 04:20: White Blood Count [Pending], Red Blood Count [Pending], Hemoglobin [Pending], Hematocrit [Pending], Mean Corpuscular Volume [Pending], Mean Corpuscular Hemoglobin [Pending], Mean Corpuscular Hemoglobin Concent [Pending], Red Cell Distribution Width [Pending], Platelet Count [Pending], Mean Platelet Volume [Pending], Neutrophils (%) (Auto) [Pending], Lymphocytes (%) (Auto) [Pending], Monocytes (%) (Auto) [Pending], Eosinophils (%) (Auto) [Pending], Basophils (%) (Auto) [Pending], Phosphorus Level [Pending], Magnesium Level [Pending] Height (Feet): 5 Height (Inches): 5.00 Weight (Pounds): 169 General Appearance: no apparent distress Cardiovascular: normal rate Respiratory/Chest: decreased breath sounds Objective No change Naveed Vanegas MD Dec 20, 2019 11:40
[2019-12-20 12:00] VITALS: BP 117/42
[2019-12-20 16:00] VITALS: BP 114/40
[2019-12-20 20:00] VITALS: BP 128/46
[2019-12-20] MEDS: Dyna-Hex 2% Top Sol 2oz TOPIC SCH (20:42)
[2019-12-20] MEDS ORDERED: Epoetin Alfa-EPBX(ESRD on dialysis)4000 units/ml vial SUBQ SCH (21:00)
[2019-12-20] MEDS ORDERED: Epoetin Alfa-EPBX(ESRD on dialysis)2000 units/ml vial SUBQ SCH (21:00)
[2019-12-21] VITALS: BP 133/46
[2019-12-21] MEDS: NovoLOG Insulin Flexpen SUBQ SCH ×5 (00:39→23:26)
[2019-12-21 04:00] VITALS: BP 133/46
[2019-12-21 06:23] LABS: HEMATOCRIT 32.7 % (42.0-52.0); HEMOGLOBIN 10.3 G/DL (14.2-18.0); MEAN CORPUSCULAR VOLUME 89 FL (80-99); PLATELET COUNT 331 K/UL (150-450); RED BLOOD COUNT 3.68 M/UL (4.70-6.10); WHITE BLOOD COUNT 14.9 K/UL (4.8-10.8)
--- NOTE | 2019-12-21 06:53 | Hematology/Onc Progress Note ---
Assessment/Plan Assessment/Plan ASSESSMENT AND RECOMMENDATIONS: # Anemia of chronic disease due to underlying chronic medical issues, multifactorial --> Anemia w/u has been reviewed. --> no evidence of hemolysis is noted, peripheral smear has been reviewed --> hgb goal is >7, transfuse as needed --> currently remains stable, occult blood negative --> hgb 8.4->8.6->8.3->8->8.2->9.2-->9.2->8.9-->8.1-->8.7>9.4-->8.7-->8->7.8->7.5-->7.4- ->7.5-->8.1-->8-->8.1-->9.5->7.9-->7.6-->7.5-->9.9-->8.8-->9.1->9.6-->9.4 --> 1 unit prbc 12/03 --> some blood loss due to hematuria after inflated reyes pulled 8/6 am --> EPOGEN to continue # Thrombocytopenia is likely due to infection --> plt trend 180-->149-->274 --> on abx as needed --> hep and hiv neg #. Leukocytosis with underlying infectionv stress reaction HISTORY --> per id and better --> for infection, ABX ctx/vanc-->off --> wbc 10-->5.9 # Acute kidney injury r/o potential reversible component --> reviewed meds, those that are renally cleared removed --> as per renal recs, appreciated --> cr 3.5-->4.2-->3.4->3.3 --> Hd started and dw renal # Hypertension, essential --> sbp goal is <140, consider anti-htn as needed --> currently started on hyralazine 25mg po q6h prn sbp >140 # CHF - hx of CHf --> diuresis with lasix as needed --> cardiology recs appreciated prior adm #. Bilateral lower extremity amputee, metatarsal several years ago --> stable #. Atrial fibrillation --> as per cards recs #. Dysphagia s/p peg --> peg pulled out and now with gtube 11/25 #. Hyperkalemia --> kayxelate as needed #. Agitation requires restraints #. Dvt ppx scds --> xarelto=> off-->eliquis-->off-->eliquis The time the note was entered does not necessarily correspond to the time the patient was seen. GREATLY APPRECIATE CONSULTATION. Subjective Constitutional: Denies: no symptoms, chills, fever, malaise, weakness, other HEENT: Denies: no symptoms, eye pain, blurred vision, tearing, double vision, ear pain, ear discharge, nose pain, nose congestion, throat pain, throat swelling, mouth pain, mouth swelling, other Cardiovascular: Denies: no symptoms, chest pain, edema, irregular heart rate, lightheadedness, palpitations, syncope, other Respiratory: Denies: no symptoms, cough, shortness of breath, SOB with excertion, SOB at rest, sputum, wheezing, other Gastrointestinal/Abdominal: Denies: no symptoms, abdomen distended, abdominal pain, black stools, tarry stools, blood in stool, constipated, diarrhea, difficulty swallowing, nausea, poor appetite, poor fluid intake, rectal bleeding, vomiting, other Genitourinary: Denies: no symptoms, burning, discharge, frequency, flank pain, hematuria, incontinence, pain, urgency, other Neurologic/Psychiatric: Denies: no symptoms, anxiety, depressed, emotional problems, headache, numbness, paresthesia, pre-existing deficit, seizure, tingling, tremors, weakness, other Endocrine: Denies: no symptoms, excessive sweating, flushing, intolerance to cold, intolerance to heat, increased hunger, increased thirst, increased urine, unexplained weight gain, unexplained weight loss, other Allergies: Coded Allergies: PENICILLINS (Verified Allergy, Unknown, 10/25/19) tolerated Ceftriaxone Subjective 11/[address] [facility] due to lack of bipap capability, hgb 7.5 11/24 labs reviewed, remains sob, with a hgb 8.1, no bleeding, jag rn, hold off prbc 11/25 labs are noted, for egd and peg in the am, jag rn, on nc 11/27 getting 3l nc overnight, has been refusing bipap unfortunately, hgb stable 11/28 labs noted, with gtube feeds, again this am refusing bipap 11/29 is on 2l nc, with gtube feeds, hgb 9.5, no bleeding 11/30 labs are noted, no bleeding, on gtube feeds, on 2l nc 12/01 meds noted, no bleeding, hgb 7.9 yesterday, on nc 12/02 is on nepro and on 2l, hgb 7.6, c/o itching, have started benadryl q 8h prn 12/04 labs reviewed, coverning for Dr. Chang, no bleeding, meds noted, wants restraints off 12/05 labs are noted, no bleeding, no night sweats, with gtube feeds ongoing 12/06 labs reviewed, no bleeding, meds noted, no major changes, peg+ 12/07 on wrist restraints, gtube was pulled out overnight, no bleedng 12/10 no acute events, nc 2l, bilat wrist restraints, eliquis 12/11 labs are noted, labs reviewed, is on 2l, agitated again 12/12 is awake, alert, no bleeding, meds reviewed, no night sweats, hgb 9.1 12/13 labs reviewed, is on 1l nc, no bleeding, meds noted, hgb 9.6 12/14 on 2l nc, no bleeding, labs noted, meds reviewed, no major changes 12/15 is on 1l nc, no bleeding, meds noted, no bleeding, dw rn 12/16 labs noted, no bleeding, meds noted, no f/c, no night sweats 12/18 continue on amio, epo and eliquis, labs are noted, no bleeding, comfortable this am 12/20 hd noted, no bleeding, 2.5l were removed, no night sweats Objective Objective Current Medications Medications (Trade) Dose Ordered Sig/Cammy Route PRN Reason Start Time Stop Time Status Last Admin Dose Admin Allopurinol (allopurinoL) 300 mg DAILY ORAL 11/26/19 10:30 12/24/19 10:29 12/20/19 09:28 Amiodarone HCl (Cordarone) 200 mg DAILY ORAL 12/21/19 09:00 03/03/20 20:59 Amlodipine Besylate (Norvasc) 5 mg Q12HR GT 11/28/19 21:00 12/24/19 10:29 12/20/19 22:56 Apixaban (Eliquis) 2.5 mg BID ORAL 11/26/19 10:30 02/22/20 10:29 12/20/19 17:44 Atorvastatin Calcium (Lipitor) 10 mg BEDTIME ORAL 11/26/19 21:00 02/22/20 20:59 12/20/19 20:42 Chlorhexidine Gluconate (Yi-Hex 2%) 1 applic DAILY@2000 TOPIC 11/26/19 20:00 02/24/20 19:59 12/20/19 20:42 Dextrose (Dextrose 50%) 25 ml Q30M PRN IV Hypoglycemia 12/03/19 10:30 03/02/20 10:29 Dextrose (Dextrose 50%) 50 ml Q30M PRN IV Hypoglycemia 12/03/19 10:30 03/02/20 10:29 Diphenhydramine HCl (Benadryl) 25 mg Q8H PRN NG Itching 12/03/19 09:30 01/02/20 09:29 12/18/19 00:53 Docusate Sodium (Colace) 100 mg THREE TIMES A DAY NG 11/28/19 13:00 12/28/19 12:59 12/20/19 17:44 Epoetin William (Epoetin William(ESRD on dialysis)) 2,000 unit SUBQ 12/20/19 21:00 03/19/20 20:59 12/20/19 20:42 Epoetin William (Epoetin William(ESRD on dialysis)) 8,000 unit SUBQ 12/20/19 21:00 03/19/20 20:59 12/20/19 20:42 Insulin Aspart (NovoLOG) Q6HR SUBQ 12/03/19 12:00 03/02/20 11:59 12/21/19 06:20 Lansoprazole (Prevacid) 30 mg DAILY GT 11/28/19 10:45 12/28/19 10:44 12/20/19 09:28 Metoprolol Tartrate (Lopressor) 12.5 mg Q12HR GT 11/29/19 09:00 02/27/20 08:59 12/20/19 22:56 Morphine Sulfate (Morphine 10mg/ 5ml Oral Soln) 1 mg Q6H PRN ORAL For Pain 12/14/19 14:29 12/21/19 14:28 12/20/19 20:46 Sennosides (Senokot) 8.6 mg DAILY PRN ORAL Constipation 11/26/19 10:30 12/26/19 10:29 Last 24 Hour Vital Signs Date Time Temp Pulse Resp B/P (MAP) Pulse Ox O2 Delivery O2 Flow Rate FiO2 12/21/19 04:00 97.9 86 20 133/46 (75) 93 12/21/19 00:00 97.5 82 17 133/46 (75) 100 12/20/19 22:56 79 153/64 12/20/19 22:56 79 153/64 12/20/19 21:00 Nasal Cannula 1.0 12/20/19 20:00 98 Nasal Cannula 2.0 28 12/20/19 20:00 97.9 74 18 128/46 (73) 93 12/20/19 16:00 98.1 81 20 114/40 (64) 97 12/20/19 12:00 97.9 68 20 117/42 (67) 98 12/20/19 09:00 81 112/48 12/20/19 09:00 81 112/48 12/20/19 09:00 Nasal Cannula 1.0 12/20/19 08:12 99 Nasal Cannula 1.0 12/20/19 08:00 98.1 81 20 112/48 (69) 96 12/20/19 04:00 97.5 78 20 128/48 (74) 97 12/20/19 00:00 99.2 69 21 126/46 (72) 94 12/19/19 21:00 Nasal Cannula 1.0 12/19/19 20:20 99 Nasal Cannula 2.0 28 12/19/19 20:18 83 126/96 12/19/19 20:18 83 126/96 12/19/19 20:00 100.0 83 17 126/46 (72) 99 12/19/19 16:00 98.3 77 20 130/58 (82) 97 12/19/19 12:00 98.1 72 20 124/46 (72) 98 12/19/19 09:00 70 106/38 12/19/19 09:00 70 106/38 12/19/19 09:00 Nasal Cannula 2.0 12/19/19 08:37 98 Nasal Cannula 2.0 28 12/19/19 08:00 98.1 70 20 106/38 (60) 100 Intake and Output 12/20/19 12/21/19 19:00 07:00 Intake Total 380 ml Output Total 200 ml Balance 180 ml Intake Free Water 200 ml Tube Feeding 180 ml Output Urine Total 200 ml Labs Test 12/18/19 07:20 12/19/19 06:25 12/19/19 15:51 12/21/19 06:10 White Blood Count 10.0 K/UL (4.8-10.8) 14.5 K/UL (4.8-10.8) 14.9 K/UL (4.8-10.8) Red Blood Count 3.64 M/UL (4.70-6.10) 3.56 M/UL (4.70-6.10) 3.68 M/UL (4.70-6.10) Hemoglobin 10.3 G/DL (14.2-18.0) 9.9 G/DL (14.2-18.0) 10.3 G/DL (14.2-18.0) Hematocrit 32.9 % (42.0-52.0) 32.4 % (42.0-52.0) 32.7 % (42.0-52.0) Mean Corpuscular Volume 90 FL (80-99) 91 FL (80-99) 89 FL (80-99) Mean Corpuscular Hemoglobin 28.4 PG (27.0-31.0) 27.8 PG (27.0-31.0) 28.0 PG (27.0-31.0) Mean Corpuscular Hemoglobin Concent 31.4 G/DL (32.0-36.0) 30.6 G/DL (32.0-36.0) 31.4 G/DL (32.0-36.0) Red Cell Distribution Width 17.1 % (11.6-14.8) 16.8 % (11.6-14.8) 17.0 % (11.6-14.8) Platelet Count 281 K/UL (150-450) 295 K/UL (150-450) 331 K/UL (150-450) Mean Platelet Volume 6.6 FL (6.5-10.1) 6.2 FL (6.5-10.1) 6.3 FL (6.5-10.1) Neutrophils (%) (Auto) 71.7 % (45.0-75.0) 78.9 % (45.0-75.0) % (45.0-75.0) Lymphocytes (%) (Auto) 18.6 % (20.0-45.0) 15.6 % (20.0-45.0) % (20.0-45.0) Monocytes (%) (Auto) 5.9 % (1.0-10.0) 3.7 % (1.0-10.0) % (1.0-10.0) Eosinophils (%) (Auto) 1.3 % (0.0-3.0) 1.2 % (0.0-3.0) % (0.0-3.0) Basophils (%) (Auto) 2.5 % (0.0-2.0) 0.6 % (0.0-2.0) % (0.0-2.0) Sodium Level 133 MMOL/L (136-145) 132 MMOL/L (136-145) Potassium Level 3.8 MMOL/L (3.5-5.1) 4.2 MMOL/L (3.5-5.1) Chloride Level 96 MMOL/L (98-107) 93 MMOL/L (98-107) Carbon Dioxide Level 32 MMOL/L (21-32) 26 MMOL/L (21-32) Anion Gap 5 mmol/L (5-15) 13 mmol/L (5-15) Blood Urea Nitrogen 56 mg/dL (7-18) 86 mg/dL (7-18) Creatinine 3.6 MG/DL (0.55-1.30) 5.4 MG/DL (0.55-1.30) Estimat Glomerular Filtration Rate 16.4 mL/min (>60) 10.2 mL/min (>60) Glucose Level 159 MG/DL (74-106) 178 MG/DL (74-106) Calcium Level 8.8 MG/DL (8.5-10.1) 8.9 MG/DL (8.5-10.1) Phosphorus Level 3.9 MG/DL (2.5-4.9) Total Bilirubin 0.6 MG/DL (0.2-1.0) 0.5 MG/DL (0.2-1.0) Aspartate Amino Transf (AST/SGOT) 23 U/L (15-37) 28 U/L (15-37) Alanine Aminotransferase (ALT/SGPT) 14 U/L (12-78) 22 U/L (12-78) Alkaline Phosphatase 232 U/L (46-116) 294 U/L (46-116) C-Reactive Protein, Quantitative 10.1 mg/dL (0.00-0.90) Pro-B-Type Natriuretic Peptide 6985 pg/mL (0-125) Total Protein 7.5 G/DL (6.4-8.2) 6.9 G/DL (6.4-8.2) Albumin 3.3 G/DL (3.4-5.0) 2.8 G/DL (3.4-5.0) Globulin 4.2 g/dL 4.1 g/dL Albumin/Globulin Ratio 0.8 (1.0-2.7) 0.7 (1.0-2.7) Height (Feet): 5 Height (Inches): 5.00 Weight (Pounds): 169 Objective GENERAL: Not in acute distress. HEENT: ncat PULMONARY: Decreased breath sounds. ++ bipap v nc+ CHEST: ++permacath right chest CARDIOVASCULAR: Regular rate. No S3 or S4. ABDOMEN: Soft, nontender, nondistended.++reyes in site of old gtube EXTREMITIES: 1+ edema. No cyanosis, swelling, or edema. 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 Melvin Rizzo MD Dec 21, 2019 06:53
[2019-12-21 07:07] LABS: ALBUMIN 3.5 G/DL (3.4-5.0); ALBUMIN/GLOBULIN RATIO 0.9 (1.0-2.7); BILIRUBIN,TOTAL 0.7 MG/DL (0.2-1.0); CALCIUM 9.4 MG/DL (8.5-10.1); CREATININE 3.6 MG/DL (0.55-1.30); PHOSPHORUS 2.5 MG/DL (2.5-4.9)
[2019-12-21 08:00] VITALS: BP 123/47
[2019-12-21] MEDS: Docusate 100mg/10ml Liq NG SCH ×3 (09:38→17:33)
[2019-12-21] MEDS: Metoprolol Tartrate 12.5mg TAB GT SCH ×2 (09:39→21:03)
[2019-12-21] MEDS: Eliquis 2.5mg tablet ORAL SCH ×2 (09:39→17:34)
[2019-12-21] MEDS: Amiodarone 200mg tab ORAL SCH (09:39)
[2019-12-21] MEDS: Morphine Sulfate 10mg/5ml Oral Soln ud ORAL PRN (09:40)
--- NOTE | 2019-12-21 09:46 | Pulmonology Progress Note ---
Reema Hanna PAINTER ORDNANCE 12/21/19 0946: Subjective ROS Limited/Unobtainable: No Allergies: Coded Allergies: PENICILLINS (Verified Allergy, Unknown, 10/25/19) tolerated Ceftriaxone All Systems: reviewed and negative except above Subjective on [place] floor leuk 12/18 and 12/20 , prior fever CXR 12/18 with findings representing atelectasis versus infectious/inflammatory process versus asymmetric edema. on O2 1- L via NC, pulse ox stable off BiPAP and continued to decline it no signs of resp distress code status changed to DNR/DNI on 12/06 by attending due to family wishes Objective Last 24 Hour Vital Signs Date Time Temp Pulse Resp B/P (MAP) Pulse Ox O2 Delivery O2 Flow Rate FiO2 12/21/19 09:39 83 123/47 12/21/19 09:39 83 123/47 12/21/19 04:00 97.9 86 20 133/46 (75) 93 12/21/19 00:00 97.5 82 17 133/46 (75) 100 12/20/19 22:56 79 153/64 12/20/19 22:56 79 153/64 12/20/19 21:00 Nasal Cannula 1.0 12/20/19 20:00 98 Nasal Cannula 2.0 28 12/20/19 20:00 97.9 74 18 128/46 (73) 93 12/20/19 16:00 98.1 81 20 114/40 (64) 97 12/20/19 12:00 97.9 68 20 117/42 (67) 98 Intake and Output 12/20/19 12/21/19 18:59 06:59 Intake Total 380 ml Output Total 200 ml Balance 180 ml Intake Free Water 200 ml Tube Feeding 180 ml Output Urine Total 200 ml Objective General Appearance: alert , confused, but more awake Kiswahili speaking male, Lines, tubes and drains: peripheral HEENT: normocephalic, atraumatic, anicteric, O2 via NC Neck: supple Respiratory/Chest: lungs clear, no respiratory distress Cardiovascular/Chest: normal rate, Abdomen: non tender, soft, feeding tube - G tube Extremities: BL foot TMA Neurologic: abnormal gait, alert, confused, responsive Musculoskeletal: atrophy - BLE Laboratory Tests 12/21/19 06:10: White Blood Count 14.9H, Red Blood Count 3.68L, Hemoglobin 10.3L, Hematocrit 32.7L, Mean Corpuscular Volume 89, Mean Corpuscular Hemoglobin 28.0, Mean Corpuscular Hemoglobin Concent 31.4L, Red Cell Distribution Width 17.0H, Platelet Count 331, Mean Platelet Volume 6.3L, Neutrophils (%) (Auto) , Lymphocytes (%) (Auto) , Monocytes (%) (Auto) , Eosinophils (%) (Auto) , Basophils (%) (Auto) , Differential Total Cells Counted 100, Neutrophils % (Manual) 87H, Lymphocytes % (Manual) 9L, Monocytes % (Manual) 4, Eosinophils % (Manual) 0, Basophils % (Manual) 0, Band Neutrophils 0, Platelet Estimate Ad equate, Platelet Morphology Normal, Hypochromasia 1+, Anisocytosis 2+, Sodium Level 135L, Potassium Level 4.0, Chloride Level 95L, Carbon Dioxide Level 34H, Anion Gap 6, Blood Urea Nitrogen 50H, Creatinine 3.6H, Estimat Glomerular Filtration Rate 16.4, Glucose Level 179H, Calcium Level 9.4, Phosphorus Level 2.5, Magnesium Level 2.5H, Total Bilirubin 0.7, Aspartate Amino Transf (AST/SGOT) 33, Alanine Aminotransferase (ALT/SGPT) 28, Alkaline Phosphatase 358H , Total Protein 7.4, Albumin 3.5, Globulin 3.9, Albumin/Globulin Ratio 0.9L Current Medications Medications (Trade) Dose Ordered Sig/Cammy Route PRN Reason Start Time Stop Time Status Last Admin Dose Admin Allopurinol (allopurinoL) 300 mg DAILY ORAL 11/26/19 10:30 12/24/19 10:29 12/21/19 09:39 Amiodarone HCl (Cordarone) 200 mg DAILY ORAL 12/21/19 09:00 03/03/20 20:59 12/21/19 09:39 Amlodipine Besylate (Norvasc) 5 mg Q12HR GT 11/28/19 21:00 12/24/19 10:29 12/21/19 09:39 Apixaban (Eliquis) 2.5 mg BID ORAL 11/26/19 10:30 02/22/20 10:29 12/21/19 09:39 Atorvastatin Calcium (Lipitor) 10 mg BEDTIME ORAL 11/26/19 21:00 02/22/20 20:59 12/20/19 20:42 Chlorhexidine Gluconate (Yi-Hex 2%) 1 applic DAILY@2000 TOPIC 11/26/19 20:00 02/24/20 19:59 12/20/19 20:42 Dextrose (Dextrose 50%) 25 ml Q30M PRN IV Hypoglycemia 12/03/19 10:30 03/02/20 10:29 Dextrose (Dextrose 50%) 50 ml Q30M PRN IV Hypoglycemia 12/03/19 10:30 03/02/20 10:29 Diphenhydramine HCl (Benadryl) 25 mg Q8H PRN NG Itching 12/03/19 09:30 01/02/20 09:29 12/18/19 00:53 Docusate Sodium (Colace) 100 mg THREE TIMES A DAY NG 11/28/19 13:00 12/28/19 12:59 12/21/19 09:38 Epoetin William (Epoetin William(ESRD on dialysis)) 2,000 unit FRI-FRI-FRI SUBQ 12/20/19 21:00 03/19/20 20:59 12/20/19 20:42 Epoetin William (Epoetin William(ESRD on dialysis)) 8,000 unit FRI-FRI-FRI SUBQ 12/20/19 21:00 03/19/20 20:59 12/20/19 20:42 Insulin Aspart (NovoLOG) Q6HR SUBQ 12/03/19 12:00 03/02/20 11:59 12/21/19 06:20 Lansoprazole (Prevacid) 30 mg DAILY GT 11/28/19 10:45 12/28/19 10:44 12/21/19 09:39 Metoprolol Tartrate (Lopressor) 12.5 mg Q12HR GT 11/29/19 09:00 02/27/20 08:59 12/21/19 09:39 Morphine Sulfate (Morphine 10mg/ 5ml Oral Soln) 1 mg Q6H PRN ORAL For Pain 12/14/19 14:29 12/21/19 14:28 12/21/19 09:40 Sennosides (Senokot) 8.6 mg DAILY PRN ORAL Constipation 11/26/19 10:30 12/26/19 10:29 Assessment/Plan Assessment/Plan ASSESSMENT Prior acute hypoxemic hypercapnic respiratory failure requiring BiPAP Chronic CO2 retention Possible DAYANA Aspiration risk ? possible PNA; s/p recent PNA Dysphagia , s/p PEG , pulled out, s/p replacement of PEG 11/16 Acute kidney injury on chronic kidney disease, requiring start of HD 10/30 Anemia of chronic kidney disease PAF/flutter- converted to SR Diabetes mellitus HTN PVD with hx of bilateral foot MTA Refusal of care PLAN OF CARE [facility] floor BiPAP at HS and prn , refusing again currently on O2 1 L via NC titrate O2, pulm toilet CXR 11/28 mild vascular congestion and small bilateral pleural effusions, slightly improved when compared to October 31, 2019. No pneumothorax. Cardiomegaly. Calcified aorta. leukocytosis 12/18, fever 12/18 evening CXR 12/18 Similar right lung opacity, predominantly in the right mid and lower lung. Similar to slightly increased left basilar opacity. Findings may represent atelectasis versus infectious/inflammatory process versus asymmetric edema consider starting abx and ID consult-discussed with Dr Rizzo will get UA and cx and BCX ( prior hx of MRSA blood in 2018 ) , repeat CXR ABG prn rapid COVID NGT, BiPAP prn and HS-continued to refuse patient likely has DAYANA. recommend sleep study as OP developed A flutter/ fib 12/03 seen by cardio already spontaneously converter to SR on a/c with Eliquis, rate controlled with BB ECHO with pEF 55-60% rate control with BB, HR stable on chronic a/c , was on hold for PEG, Eliquis afterwards resumed BP management with CCB and BB, optimize as needed continue statin ethics eval if pt can refuse BiPAP ( patient with dementia, confusion), daughter wants BiPAP and unclear how he refused if was on restraints? in our opinion BiPAP should be on standing order and available in the facility when patient will be transferred need formal polysomnogram to be done as OP bioethics eval appreciated, done 11/25 . per bioethics: pt with diminished capacity and does not understand the consequences of refusing bi-pap, yet it seems inhumane to force him to endure it recommended that he should be discharged to the SNF on nasal canula with instructions not to be sent back to the acute care hospital for refusal to accept bi-pap. bioethics offered to have a family conference to explain the reasoning if the family is willing to speak with us. SHERRIE spoke with daughter and ( through RN dance historian) re further GOC and code status 11/29 daughter and decided on DNR/DNI status , which was relayed to me by SW 12/02 Dr Pabon spoke with Dr Chang, code status changed on 12/06 to DNR/DNI dc plan to SNF ; SHERRIE discussed with family ( not want [facility]) , ongoing search for the facility completed Rx for PNA on prior admission Venous Duplex BLE 10/25 -> NGT aspir precautions, TF via GT f protein supplements GI follows pain management HH remains at baseline tolerates GT feeding bowel regimen, c/o intermittent abd pain, no n/v/diarrhea, tolerates GT feeding - per GI management HD as per nephro recs monitor volumes, renal paramerts, lytes s/p placement of permanent HD catheter R chest 11/07 s/p removal of temporary HD catheter by surgeon prior HgA1c -6.1 hold oral anti-glycemic monitor HH with goal to keep Hgb above 7 anemia w/up prior noted , heme on board on EPO GI prophayxlis supportive care dc plan in progress, challenging placement case discussed and evaluated by supervising physician Jonathon Pabon MD 12/21/19 1207: Subjective Allergies: Coded Allergies: PENICILLINS (Verified Allergy, Unknown, 10/25/19) tolerated Ceftriaxone Assessment/Plan Assessment/Plan Patient seen and examined with PAINTER ORDNANCE. Agree with above A&P as it reflects our joint deliberations. Reema Hanna NP Dec 21, 2019 09:46 Jonathon Pabon MD Dec 21, 2019 12:07
--- NOTE | 2019-12-21 10:19 | Nephrology Progress Note ---
Assessment/Plan Problem List: (1) Respiratory distress (2) Diabetes mellitus (3) Hypertension (4) Renal failure (ARF), acute on chronic Assessment Patient's current problem is dyspnea Most likely volume overload versus pneumonitis Other conditions: Renal failure (ARF), acute on chronic h/o Metabolic acidosis h/oElectrolyte imbalance Hyponatremia and hyperkalemia h/oAnemia h/o CHF (congestive heart failure) Plan December 20: Dialyzed yesterday. Labs reviewed. Continue per consultants. Dialysis as needed. December 19: Patient due for dialysis today. Today's labs pending. Continue per consultants. December 18: Today's lab results still pending. Last dialyzed December 16. N ext dialysis tomorrow December 19. Continue to monitor renal parameters and electrolytes. Continue per consultants. December 17: Patient dialyzed yesterday. Today's labs reviewed. Status quo. Continue per PMD. Next dialysis on FridayDecember 19. December 16: Patient due for dialysis today. Labs reviewed. Status unchanged. Continue with same management. December 15: Patient was dialyzed on December 13. Next dialysis December 16. Status quo. Labs reviewed. Medication list reviewed. Continue current treatment plan. December 14: Patient was dialyzed yesterday. No chemistry panel done today. Continue to monitor renal parameters and dialysis treatment as needed. Continue per consultants. December 13: Patient due for dialysis today. Labs reviewed. Patient is DNR. Confused. December 12: Last dialysis December 10. Labs reviewed. Medication list reviewed. Continue per current management. Check lab tomorrow, will arrange for dialysis as needed. December 11: Dialyzed yesterday. Status quo. Continue to monitor renal parameters and dialysis as needed. Continue per consultants. December 10: Due for dialysis today. No chemistry panel done today. We will continue to monitor renal parameters. Medication list reviewed. December 09: Last dialyzed December 06. Labs reviewed. Will order dialysis tomorrow. Continue current treatment plan. December 08: Last dialysis December 06. No chemistry panel today. Will check lab tomorrow. Hemodialysis as needed. December 07: Dialyzed yesterday. Labs reviewed. Stable from renal standpoint of view. December 06: Due for dialysis today. CBC and medication list reviewed. Continue per consultants. Hemoglobin drifting down. Will check CBC and chemistry panel tomorrow December 05: Labs reviewed. Serum creatinine up to 4.2. Calculated GFR 13. Last dialysis December 02. Will order dialysis tomorrow. December 04: Status quo. Labs reviewed. Continue per current management. December 03: Patient was dialyzed yesterday. Labs reviewed. Continue per current management. December 02: Due for dialysis today. Blood pressure medications on hold. Albumin 25% for BP support during dialysis. Continue to monitor renal parameters. December 01: Labs reviewed. Medication reviewed. Creatinine higher. Hemodialysis for tomorrow. Continue rest. November 30: Patient was last dialyzed November 28. Not in any distress now. A ppears to be more verbal today. Labs reviewed. Creatinine 3.8. Hemoglobin lower at 7.9. 1 dose of IV iron ordered. Subcu Epogen ordered. November 29: Dialyzed yesterday. Status quo. Will check chemistry panel tomorrow. Dialysis as needed. Continue per PMD and consultants. November 28: Due for dialysis and ultrafiltration today. Labs and medications reviewed. Blood pressure is stable. November 27: BNP rising. Not much urine output. Will dialyze and ultrafiltrate tomorrow. Labs reviewed. Continue to adjust blood pressure medications. Continue per consultants. November 26: Last dialysis November 24. Status quo. Labs reviewed. Medication list reviewed. Continue to monitor renal parameters. Dialysis as needed. November 25: Patient was dialyzed yesterday. Today is due for insertion of a GT tube. Patient pulled out his previous GT tube. Labs reviewed. Electrolytes a bnormalities adjusted. Continue to monitor renal parameters. Patient is off BiPAP and on nasal cannula now. I believe that upon discharge the patient requires 2-3 times a week dialysis and ultrafiltration however upon discharge the patient needs to be followed by a hole digger truck driver in the facility that he goes to to assess on a regular basis the need and frequency for dialysis. November 24 : Late note entry due to system problem at the [facility] today. Patient due for dialysis and ultrafiltration today. Labs reviewed. Chest x-ray results not available on EMR. Last dialysis November 21. Continue pulmonary toilet. Patient remains on BiPAP. Will check labs tomorrow. Subjective ROS Limited/Unobtainable: No Constitutional: Reports: malaise Objective Objective Last 24 Hour Vital Signs Date Time Temp Pulse Resp B/P (MAP) Pulse Ox O2 Delivery O2 Flow Rate FiO2 12/21/19 09:39 83 123/47 12/21/19 09:39 83 123/47 12/21/19 08:20 99 Nasal Cannula 2.0 12/21/19 04:00 97.9 86 20 133/46 (75) 93 12/21/19 00:00 97.5 82 17 133/46 (75) 100 12/20/19 22:56 79 153/64 12/20/19 22:56 79 153/64 12/20/19 21:00 Nasal Cannula 1.0 12/20/19 20:00 98 Nasal Cannula 2.0 28 12/20/19 20:00 97.9 74 18 128/46 (73) 93 12/20/19 16:00 98.1 81 20 114/40 (64) 97 12/20/19 12:00 97.9 68 20 117/42 (67) 98 Intake and Output 12/20/19 12/21/19 19:00 07:00 Intake Total 380 ml Output Total 200 ml Balance 180 ml Intake Free Water 200 ml Tube Feeding 180 ml Output Urine Total 200 ml Laboratory Tests 12/21/19 06:10: White Blood Count 14.9H, Red Blood Count 3.68L, Hemoglobin 10.3L, Hematocrit 32.7L, Mean Corpuscular Volume 89, Mean Corpuscular Hemoglobin 28.0, Mean Corpus cular Hemoglobin Concent 31.4L, Red Cell Distribution Width 17.0H, Platelet Count 331, Mean Platelet Volume 6.3L, Neutrophils (%) (Auto) , Lymphocytes (%) (Auto) , Monocytes (%) (Auto) , Eosinophils (%) (Auto) , Basophils (%) (Auto) , Differential Total Cells Counted 100, Neutrophils % (Manual) 87H, Lymphocytes % (Manual) 9L, Monocytes % (Manual) 4, Eosinophils % (Manual) 0, Basophils % (Manual) 0, Band Neutrophils 0, Platelet Estimate Adequate, Platelet Morphology Normal, Hypochromasia 1+, Anisocytosis 2+, Sodium Level 135L, Potassium Level 4.0, Chloride Level 95L, Carbon Dioxide Level 34H, Anion Gap 6, Blood Urea Nitrogen 50H, Creatinine 3.6H, Estimat Glomerular Filtration Rate 16.4, Glucose Level 179H, Calcium Level 9.4, Phosphorus Level 2.5, Magnesium Level 2.5H, Total Bilirubin 0.7, Aspartate Amino Transf (AST/SGOT) 33, Alanine Aminotransferase (ALT/SGPT) 28, Alkaline Phosphatase 358H, Total Protein 7.4, Albumin 3.5, Globulin 3.9, Albumin/Globulin Ratio 0.9L Height (Feet): 5 Height (Inches): 5.00 Weight (Pounds): 169 General Appearance: no apparent distress Cardiovascular: normal rate Respiratory/Chest: decreased breath sounds Abdomen: soft, distended Objective No change Naveed Vanegas MD Dec 21, 2019 10:19
--- NOTE | 2019-12-21 11:43 | General Progress Note ---
Subjective ROS Limited/Unobtainable: No Allergies: Coded Allergies: PENICILLINS (Verified Allergy, Unknown, 10/25/19) tolerated Ceftriaxone Objective Last 24 Hour Vital Signs Date Time Temp Pulse Resp B/P (MAP) Pulse Ox O2 Delivery O2 Flow Rate FiO2 12/21/19 09:39 83 123/47 12/21/19 09:39 83 123/47 12/21/19 09:00 Nasal Cannula 1.0 12/21/19 08:20 99 Nasal Cannula 2.0 28 12/21/19 08:00 97.5 83 20 123/47 (72) 96 12/21/19 04:00 97.9 86 20 133/46 (75) 93 12/21/19 00:00 97.5 82 17 133/46 (75) 100 12/20/19 22:56 79 153/64 12/20/19 22:56 79 153/64 12/20/19 21:00 Nasal Cannula 1.0 12/20/19 20:00 98 Nasal Cannula 2.0 28 12/20/19 20:00 97.9 74 18 128/46 (73) 93 12/20/19 16:00 98.1 81 20 114/40 (64) 97 12/20/19 12:00 97.9 68 20 117/42 (67) 98 Intake and Output 12/20/19 12/21/19 19:00 07:00 Intake Total 380 ml Output Total 200 ml Balance 180 ml Intake Free Water 200 ml Tube Feeding 180 ml Output Urine Total 200 ml Laboratory Tests 12/21/19 06:10: White Blood Count 14.9H, Red Blood Count 3.68L, Hemoglobin 10.3L, Hematocrit 32.7L, Mean Corpuscular Volume 89, Mean Corpuscular Hemoglobin 28.0, Mean Corpuscular Hemoglobin Concent 31.4L, Red Cell Distribution Width 17.0H, Platelet Count 331, Mean Platelet Volume 6.3L, Neutrophils (%) (Auto) , Lymphocytes (%) (Auto) , Monocytes (%) (Auto) , Eosinophils (%) (Auto) , Basophils (%) (Auto) , Differential Total Cells Counted 100, Neutrophils % (Manual) 87H, Lymphocytes % (Manual) 9L, Monocytes % (Manual) 4, Eosinophils % (Manual) 0, Basophils % (Manual) 0, Band Neutrophils 0, Platelet Estimate Adequate, Platelet Morphology Normal, Hypochromasia 1+, Anisocytosis 2+, Sodium Level 135L, Potassium Level 4.0, Chloride Level 95L, Carbon Dioxide Level 34H, Anion Gap 6, Blood Urea Nitrogen 50H, Creatinine 3.6H, Estimat Glomerular Filtration Rate 16.4, Glucose Level 179H, Calcium Level 9.4, Phosphorus Level 2.5, Magnesium Level 2.5H, Total Bilirubin 0.7, Aspartate Amino Transf (AST/SGOT) 33, Alanine Aminotransferase (ALT/SGPT) 28, Alkaline Phosphatase 358H , Total Protein 7.4, Albumin 3.5, Globulin 3.9, Albumin/Globulin Ratio 0.9L Height (Feet): 5 Height (Inches): 5.00 Weight (Pounds): 169 General Appearance: no apparent distress EENT: normal ENT inspection Neck: supple Cardiovascular: normal rate Respiratory/Chest: decreased breath sounds Abdomen: normal bowel sounds, non tender, soft Extremities: non-tender Assessment/Plan Problem List: (1) Hypertension ICD Codes: I10 - Essential (primary) hypertension SNOMED: 54946245 (2) Diabetes mellitus ICD Codes: E11.9 - Type 2 diabetes mellitus without complications SNOMED: 85212985 (3) Cholelithiasis ICD Codes: K80.20 - Calculus of gallbladder without cholecystitis without obstruction SNOMED: 123047379 Status: stable Assessment/Plan: dysphagia s/p GT placement GTF monitor for residuals fu H&H prn blood transfusion Lawrence Humphreys MD Dec 21, 2019 11:43
[2019-12-21 12:00] VITALS: BP 122/45
--- NOTE | 2019-12-21 12:31 | Cardiac Electrophysiology PN ---
Assessment/Plan Assessment/Plan 1. Atrial flutter confirmed with 12-lead EKG. EF 55%. Ruled out for [place] protocol. Decrease Amiodarone to 200 po daily , metoprolol 12.5 mg b.i.d. and Eliquis. 2. Hypertension, on Metoprolol 12.5 mg bid , Amlodipine 5 mg b.i.d. and HD 3. Hyperlipidemia, on Lipitor. 4. End-stage renal disease, on hemodialysis. 5. Diabetes on insulin. 6. DNR/DNI 7. COPD, off BiPAP. 8. Peripheral vascular disease, status post bilateral transmetatarsal amputation. 9. S/P PEG DW RN Subjective Subjective Confused. PEG feeding on Abx. RN at bedside. Had 2.5 liter HD yesterday. RN at bedside Objective Last 24 Hour Vital Signs Date Time Temp Pulse Resp B/P (MAP) Pulse Ox O2 Delivery O2 Flow Rate FiO2 12/21/19 09:39 83 123/47 12/21/19 09:39 83 123/47 12/21/19 09:00 Nasal Cannula 1.0 12/21/19 08:20 99 Nasal Cannula 2.0 28 12/21/19 08:00 97.5 83 20 123/47 (72) 96 12/21/19 04:00 97.9 86 20 133/46 (75) 93 12/21/19 00:00 97.5 82 17 133/46 (75) 100 12/20/19 22:56 79 153/64 12/20/19 22:56 79 153/64 12/20/19 21:00 Nasal Cannula 1.0 12/20/19 20:00 98 Nasal Cannula 2.0 28 12/20/19 20:00 97.9 74 18 128/46 (73) 93 12/20/19 16:00 98.1 81 20 114/40 (64) 97 Intake and Output 12/20/19 12/21/19 19:00 07:00 Intake Total 380 ml Output Total 200 ml 2500 ml Balance 180 ml -2500 ml Intake Free Water 200 ml Tube Feeding 180 ml Output Urine Total 200 ml Hemodialysis UF 2500 ml Laboratory Tests Test 12/21/19 06:10 White Blood Count 14.9 K/UL (4.8-10.8) H Red Blood Count 3.68 M/UL (4.70-6.10) L Hemoglobin 10.3 G/DL (14.2-18.0) L Hematocrit 32.7 % (42.0-52.0) L Mean Corpuscular Volume 89 FL (80-99) Mean Corpuscular Hemoglobin 28.0 PG (27.0-31.0) Mean Corpuscular Hemoglobin Concent 31.4 G/DL (32.0-36.0) L Red Cell Distribution Width 17.0 % (11.6-14.8) H Platelet Count 331 K/UL (150-450) Mean Platelet Volume 6.3 FL (6.5-10.1) L Neutrophils (%) (Auto) % (45.0-75.0) Lymphocytes (%) (Auto) % (20.0-45.0) Monocytes (%) (Auto) % (1.0-10.0) Eosinophils (%) (Auto) % (0.0-3.0) Basophils (%) (Auto) % (0.0-2.0) Differential Total Cells Counted 100 Neutrophils % (Manual) 87 % (45-75) H Lymphocytes % (Manual) 9 % (20-45) L Monocytes % (Manual) 4 % (1-10) Eosinophils % (Manual) 0 % (0-3) Basophils % (Manual) 0 % (0-2) Band Neutrophils 0 % (0-8) Platelet Estimate Adequate Platelet Morphology Normal Hypochromasia 1+ Anisocytosis 2+ Sodium Level 135 MMOL/L (136-145) L Potassium Level 4.0 MMOL/L (3.5-5.1) Chloride Level 95 MMOL/L (98-107) L Carbon Dioxide Level 34 MMOL/L (21-32) H Anion Gap 6 mmol/L (5-15) Blood Urea Nitrogen 50 mg/dL (7-18) H Creatinine 3.6 MG/DL (0.55-1.30) H Estimat Glomerular Filtration Rate 16.4 mL/min (>60) Glucose Level 179 MG/DL (74-106) H Calcium Level 9.4 MG/DL (8.5-10.1) Phosphorus Level 2.5 MG/DL (2.5-4.9) Magnesium Level 2.5 MG/DL (1.8-2.4) H Total Bilirubin 0.7 MG/DL (0.2-1.0) Aspartate Amino Transf (AST/SGOT) 33 U/L (15-37) Alanine Aminotransferase (ALT/SGPT) 28 U/L (12-78) Alkaline Phosphatase 358 U/L (46-116) H Total Protein 7.4 G/DL (6.4-8.2) Albumin 3.5 G/DL (3.4-5.0) Globulin 3.9 g/dL Albumin/Globulin Ratio 0.9 (1.0-2.7) L Objective NECK: No JVD. LUNGS: Clear. He has dialysis access in the right IJ. CARDIOVASCULAR: Irregular S1 and S2 with no gallop. ABDOMEN: Status post G-tube. EXTREMITIES: Status post bilateral transmetatarsal amputation. Chris Valentin MD Dec 21, 2019 12:31
[2019-12-21 16:00] VITALS: BP 115/45
[2019-12-21 20:00] VITALS: BP 121/55
[2019-12-21] MEDS: Dyna-Hex 2% Top Sol 2oz TOPIC SCH (21:03)
[2019-12-22] VITALS: BP 126/74
[2019-12-22 04:00] VITALS: BP 127/71
[2019-12-22] MEDS ORDERED: traMADol 50mg tab ORAL PRN (05:00)
[2019-12-22] MEDS ORDERED: Morphine Sulfate 10mg/5ml Oral Soln ud ORAL PRN (05:00)
[2019-12-22] MEDS: NovoLOG Insulin Flexpen SUBQ SCH ×2 (05:39→12:23)
[2019-12-22 06:14] LABS: HEMATOCRIT 32.2 % (42.0-52.0); HEMOGLOBIN 9.9 G/DL (14.2-18.0); MEAN CORPUSCULAR VOLUME 89 FL (80-99); PLATELET COUNT 300 K/UL (150-450); RED BLOOD COUNT 3.63 M/UL (4.70-6.10); RED CELL DISTRIBUTION WIDTH 16.5 % (11.6-14.8); WHITE BLOOD COUNT 12.4 K/UL (4.8-10.8)
[2019-12-22 06:51] LABS: ALBUMIN/GLOBULIN RATIO 0.7 (1.0-2.7); BILIRUBIN,TOTAL 0.5 MG/DL (0.2-1.0); CALCIUM 9.3 MG/DL (8.5-10.1); PHOSPHORUS 3.1 MG/DL (2.5-4.9); POTASSIUM 4.4 MMOL/L (3.5-5.1)
--- NOTE | 2019-12-22 07:01 | Hematology/Onc Progress Note ---
Assessment/Plan Assessment/Plan ASSESSMENT AND RECOMMENDATIONS: # Anemia of chronic disease due to underlying chronic medical issues, multifactorial --> Anemia w/u has been reviewed. --> no evidence of hemolysis is noted, peripheral smear has been reviewed --> hgb goal is >7, transfuse as needed --> currently remains stable, occult blood negative --> hgb 8.4->8.6->8.3->8->8.2->9.2-->9.2->8.9-->8.1-->8.7>9.4-->8.7-->8->7.8->7.5-->7.4- ->7.5-->8.1-->8-->8.1-->9.5->7.9-->7.6-->7.5-->9.9-->8.8-->9.1->9.6-->9.4-->9.9 --> 1 unit prbc 12/03 --> some blood loss due to hematuria after inflated reyes pulled 8/6 am --> EPOGEN to continue # Thrombocytopenia is likely due to infection --> plt trend 180-->149-->274 --> on abx as needed --> hep and hiv neg #. Leukocytosis with underlying infectionv stress reaction HISTORY --> per id and better --> for infection, ABX ctx/vanc-->off --> wbc 10-->5.9->12 --> cxr has been reordered --> consulted id 12/20 Veronica Barry Constable # Acute kidney injury r/o potential reversible component --> reviewed meds, those that are renally cleared removed --> as per renal recs, appreciated --> cr 3.5-->4.2-->3.4->3.3 --> Hd started and dw renal # Hypertension, essential --> sbp goal is <140, consider anti-htn as needed --> currently started on hyralazine 25mg po q6h prn sbp >140 # CHF - hx of CHf --> diuresis with lasix as needed --> cardiology recs appreciated prior adm #. Bilateral lower extremity amputee, metatarsal several years ago --> stable #. Atrial fibrillation --> as per cards recs #. Dysphagia s/p peg --> peg pulled out and now with gtube 11/25 #. Hyperkalemia --> kayxelate as needed #. Agitation requires restraints #. Dnr/dni #. Dvt ppx scds --> xarelto=> off-->eliquis-->off-->eliquis The time the note was entered does not necessarily correspond to the time the patient was seen. GREATLY APPRECIATE CONSULTATION. Subjective Constitutional: Denies: no symptoms, chills, fever, malaise, weakness, other HEENT: Denies: no symptoms, eye pain, blurred vision, tearing, double vision, ear pain, ear discharge, nose pain, nose congestion, throat pain, throat swelling, mouth pain, mouth swelling, other Cardiovascular: Denies: no symptoms, chest pain, edema, irregular heart rate, lightheadedness, palpitations, syncope, other Respiratory: Denies: no symptoms, cough, shortness of breath, SOB with excertion, SOB at rest, sputum, wheezing, other Gastrointestinal/Abdominal: Denies: no symptoms, abdomen distended, abdominal pain, black stools, tarry stools, blood in stool, constipated, diarrhea, difficulty swallowing, nausea, poor appetite, poor fluid intake, rectal bleeding, vomiting, other Neurologic/Psychiatric: Denies: no symptoms, anxiety, depressed, emotional problems, headache, numbness, paresthesia, pre-existing deficit, seizure, tingling, tremors, weakness, other Endocrine: Denies: no symptoms, excessive sweating, flushing, intolerance to cold, intolerance to heat, increased hunger, increased thirst, increased urine, unexplained weight gain, unexplained weight loss, other Allergies: Coded Allergies: PENICILLINS (Verified Allergy, Unknown, 10/25/19) tolerated Ceftriaxone Subjective 11/23 came back from new snf due to lack of bipap capability, hgb 7.5 11/24 labs reviewed, remains sob, with a hgb 8.1, no bleeding, jag rn, hold off prbc 11/25 labs are noted, for egd and peg in the am, jag rn, on nc 11/27 getting 3l nc overnight, has been refusing bipap unfortunately, hgb stable 11/28 labs noted, with gtube feeds, again this am refusing bipap 11/29 is on 2l nc, with gtube feeds, hgb 9.5, no bleeding 11/30 labs are noted, no bleeding, on gtube feeds, on 2l nc 12/01 meds noted, no bleeding, hgb 7.9 yesterday, on nc 12/02 is on nepro and on 2l, hgb 7.6, c/o itching, have started benadryl q 8h prn 12/04 labs reviewed, coverning for Dr. Chang, no bleeding, meds noted, wants restraints off 12/05 labs are noted, no bleeding, no night sweats, with gtube feeds ongoing 12/06 labs reviewed, no bleeding, meds noted, no major changes, peg+ 12/07 on wrist restraints, gtube was pulled out overnight, no bleedng 12/10 no acute events, nc 2l, bilat wrist restraints, eliquis 12/11 labs are noted, labs reviewed, is on 2l, agitated again 12/12 is awake, alert, no bleeding, meds reviewed, no night sweats, hgb 9.1 12/13 labs reviewed, is on 1l nc, no bleeding, meds noted, hgb 9.6 12/14 on 2l nc, no bleeding, labs noted, meds reviewed, no major changes 12/15 is on 1l nc, no bleeding, meds noted, no bleeding, dw rn 12/16 labs noted, no bleeding, meds noted, no f/c, no night sweats 12/18 continue on amio, epo and eliquis, labs are noted, no bleeding, comfortable this am 12/20 hd noted, no bleeding, 2.5l were removed, no night sweats 12/21 labs noted, gtube feeds ongoing, morphine was renewed this Objective Objective Current Medications Medications (Trade) Dose Ordered Sig/Cammy Route PRN Reason Start Time Stop Time Status Last Admin Dose Admin Allopurinol (allopurinoL) 300 mg DAILY ORAL 11/26/19 10:30 12/24/19 10:29 12/21/19 09:39 Amiodarone HCl (Cordarone) 200 mg DAILY ORAL 12/21/19 09:00 03/03/20 20:59 12/21/19 09:39 Amlodipine Besylate (Norvasc) 5 mg Q12HR GT 11/28/19 21:00 12/24/19 10:29 12/21/19 21:04 Apixaban (Eliquis) 2.5 mg BID ORAL 11/26/19 10:30 02/22/20 10:29 12/21/19 17:34 Atorvastatin Calcium (Lipitor) 10 mg BEDTIME ORAL 11/26/19 21:00 02/22/20 20:59 12/21/19 21:04 Chlorhexidine Gluconate (Yi-Hex 2%) 1 applic DAILY@1999 TOPIC 11/26/19 20:00 02/24/20 19:59 12/21/19 21:03 Dextrose (Dextrose 50%) 25 ml Q30M PRN IV Hypoglycemia 12/03/19 10:30 03/02/20 10:29 Dextrose (Dextrose 50%) 50 ml Q30M PRN IV Hypoglycemia 12/03/19 10:30 03/02/20 10:29 Diphenhydramine HCl (Benadryl) 25 mg Q8H PRN NG Itching 12/03/19 09:30 01/02/20 09:29 12/18/19 00:53 Docusate Sodium (Colace) 100 mg THREE TIMES A DAY NG 11/28/19 13:00 12/28/19 12:59 12/21/19 17:33 Epoetin William (Epoetin William(ESRD on dialysis)) 2,000 unit FRI-FRI-FRI SUBQ 12/20/19 21:00 03/19/20 20:59 12/20/19 20:42 Epoetin William (Epoetin William(ESRD on dialysis)) 8,000 unit FRI-FRI-FRI SUBQ 12/20/19 21:00 03/19/20 20:59 12/20/19 20:42 Insulin Aspart (NovoLOG) Q6HR SUBQ 12/03/19 12:00 03/02/20 11:59 12/22/19 05:39 Lansoprazole (Prevacid) 30 mg DAILY GT 11/28/19 10:45 12/28/19 10:44 12/21/19 09:39 Metoprolol Tartrate (Lopressor) 12.5 mg Q12HR GT 11/29/19 09:00 02/27/20 08:59 12/21/19 21:03 Morphine Sulfate (Morphine 10mg/ 5ml Oral Soln) 1 mg EVERY 6 HOURS PRN ORAL Severe Pain (Pain Scale 7-10) 12/22/19 05:00 12/29/19 04:59 Sennosides (Senokot) 8.6 mg DAILY PRN ORAL Constipation 11/26/19 10:30 12/26/19 10:29 Tramadol HCl (Ultram) 50 mg EVERY 8 HOURS PRN ORAL Moderate Pain (Pain Scale 4-6) 12/22/19 05:00 12/29/19 04:59 Last 24 Hour Vital Signs Date Time Temp Pulse Resp B/P (MAP) Pulse Ox O2 Delivery O2 Flow Rate FiO2 12/22/19 04:00 98.1 69 20 127/71 (89) 96 12/22/19 00:00 97.9 67 20 126/74 (91) 100 12/21/19 21:04 71 121/55 12/21/19 21:03 71 121/55 12/21/19 21:00 Nasal Cannula 1.0 12/21/19 20:00 98 Nasal Cannula 2.0 28 12/21/19 20:00 97.9 71 20 121/55 (77) 99 12/21/19 16:00 97.7 67 20 115/45 (68) 100 12/21/19 12:00 97.9 75 20 122/45 (70) 98 12/21/19 09:39 83 123/47 12/21/19 09:39 83 123/47 12/21/19 09:00 Nasal Cannula 1.0 12/21/19 08:20 99 Nasal Cannula 2.0 28 12/21/19 08:00 97.5 83 20 123/47 (72) 96 12/21/19 04:00 97.9 86 20 133/46 (75) 93 12/21/19 00:00 97.5 82 17 133/46 (75) 100 12/20/19 22:56 79 153/64 12/20/19 22:56 79 153/64 12/20/19 21:00 Nasal Cannula 1.0 12/20/19 20:00 98 Nasal Cannula 2.0 28 12/20/19 20:00 97.9 74 18 128/46 (73) 93 12/20/19 16:00 98.1 81 20 114/40 (64) 97 12/20/19 12:00 97.9 68 20 117/42 (67) 98 12/20/19 09:00 81 112/48 12/20/19 09:00 81 112/48 12/20/19 09:00 Nasal Cannula 1.0 12/20/19 08:12 99 Nasal Cannula 1.0 24 12/20/19 08:00 98.1 81 20 112/48 (69) 96 Intake and Output 12/21/19 12/22/19 19:00 07:00 # Voids 2 Labs Test 12/19/19 15:51 12/21/19 06:10 12/22/19 05:45 Sodium Level 132 MMOL/L (136-145) 135 MMOL/L (136-145) Potassium Level 4.2 MMOL/L (3.5-5.1) 4.0 MMOL/L (3.5-5.1) Chloride Level 93 MMOL/L (98-107) 95 MMOL/L (98-107) Carbon Dioxide Level 26 MMOL/L (21-32) 34 MMOL/L (21-32) Anion Gap 13 mmol/L (5-15) 6 mmol/L (5-15) Blood Urea Nitrogen 86 mg/dL (7-18) 50 mg/dL (7-18) Creatinine 5.4 MG/DL (0.55-1.30) 3.6 MG/DL (0.55-1.30) Estimat Glomerular Filtration Rate 10.2 mL/min (>60) 16.4 mL/min (>60) Glucose Level 178 MG/DL (74-106) 179 MG/DL (74-106) Calcium Level 8.9 MG/DL (8.5-10.1) 9.4 MG/DL (8.5-10.1) Total Bilirubin 0.5 MG/DL (0.2-1.0) 0.7 MG/DL (0.2-1.0) Aspartate Amino Transf (AST/SGOT) 28 U/L (15-37) 33 U/L (15-37) Alanine Aminotransferase (ALT/SGPT) 22 U/L (12-78) 28 U/L (12-78) Alkaline Phosphatase 294 U/L (46-116) 358 U/L (46-116) Total Protein 6.9 G/DL (6.4-8.2) 7.4 G/DL (6.4-8.2) Albumin 2.8 G/DL (3.4-5.0) 3.5 G/DL (3.4-5.0) Globulin 4.1 g/dL 3.9 g/dL Albumin/Globulin Ratio 0.7 (1.0-2.7) 0.9 (1.0-2.7) White Blood Count 14.9 K/UL (4.8-10.8) 12.4 K/UL (4.8-10.8) Red Blood Count 3.68 M/UL (4.70-6.10) 3.63 M/UL (4.70-6.10) Hemoglobin 10.3 G/DL (14.2-18.0) 9.9 G/DL (14.2-18.0) Hematocrit 32.7 % (42.0-52.0) 32.2 % (42.0-52.0) Mean Corpuscular Volume 89 FL (80-99) 89 FL (80-99) Mean Corpuscular Hemoglobin 28.0 PG (27.0-31.0) 27.3 PG (27.0-31.0) Mean Corpuscular Hemoglobin Concent 31.4 G/DL (32.0-36.0) 30.8 G/DL (32.0-36.0) Red Cell Distribution Width 17.0 % (11.6-14.8) 16.5 % (11.6-14.8) Platelet Count 331 K/UL (150-450) 300 K/UL (150-450) Mean Platelet Volume 6.3 FL (6.5-10.1) 6.2 FL (6.5-10.1) Neutrophils (%) (Auto) % (45.0-75.0) % (45.0-75.0) Lymphocytes (%) (Auto) % (20.0-45.0) % (20.0-45.0) Monocytes (%) (Auto) % (1.0-10.0) % (1.0-10.0) Eosinophils (%) (Auto) % (0.0-3.0) % (0.0-3.0) Basophils (%) (Auto) % (0.0-2.0) % (0.0-2.0) Differential Total Cells Counted 100 Neutrophils % (Manual) 87 % (45-75) Lymphocytes % (Manual) 9 % (20-45) Monocytes % (Manual) 4 % (1-10) Eosinophils % (Manual) 0 % (0-3) Basophils % (Manual) 0 % (0-2) Band Neutrophils 0 % (0-8) Platelet Estimate Adequate Platelet Morphology Normal Hypochromasia 1+ Anisocytosis 2+ Phosphorus Level 2.5 MG/DL (2.5-4.9) Magnesium Level 2.5 MG/DL (1.8-2.4) Height (Feet): 5 Height (Inches): 5.00 Weight (Pounds): 169 Objective GENERAL: Not in acute distress. HEENT: ncat PULMONARY: Decreased breath sounds. ++ bipap v nc+ CHEST: ++permacath right chest CARDIOVASCULAR: Regular rate. No S3 or S4. ABDOMEN: Soft, nontender, nondistended.++reyes in site of old gtube EXTREMITIES: 1+ edema. No cyanosis, swelling, or edema. 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 Melvin Rizzo MD Dec 22, 2019 07:01
[2019-12-22 08:00] VITALS: BP 123/76
--- NOTE | 2019-12-22 08:29 | General Progress Note ---
Subjective ROS Limited/Unobtainable: No Allergies: Coded Allergies: PENICILLINS (Verified Allergy, Unknown, 10/25/19) tolerated Ceftriaxone Objective Last 24 Hour Vital Signs Date Time Temp Pulse Resp B/P (MAP) Pulse Ox O2 Delivery O2 Flow Rate FiO2 12/22/19 04:00 98.1 69 20 127/71 (89) 96 12/22/19 00:00 97.9 67 20 126/74 (91) 100 12/21/19 21:04 71 121/55 12/21/19 21:03 71 121/55 12/21/19 21:00 Nasal Cannula 1.0 12/21/19 20:00 98 Nasal Cannula 2.0 28 12/21/19 20:00 97.9 71 20 121/55 (77) 99 12/21/19 16:00 97.7 67 20 115/45 (68) 100 12/21/19 12:00 97.9 75 20 122/45 (70) 98 12/21/19 09:39 83 123/47 12/21/19 09:39 83 123/47 12/21/19 09:00 Nasal Cannula 1.0 Intake and Output 12/21/19 12/22/19 18:59 06:59 Intake Total 145 ml Output Total 150 ml Balance -5 ml Intake Free Water 100 ml Tube Feeding 45 ml Output Urine Total 150 ml # Voids 2 Laboratory Tests 12/22/19 05:45: White Blood Count 12.4H, Red Blood Count 3.63L, Hemoglobin 9.9L, Hematocrit 32.2L, Mean Corpuscular Volume 89, Mean Corpuscular Hemoglobin 27.3, Mean Corpuscular Hemoglobin Concent 30.8L, Red Cell Distribution Width 16.5H, Platelet Count 300, Mean Platelet Volume 6.2L, Neutrophils (%) (Auto) , Lymphocytes (%) (Auto) , Monocytes (%) (Auto) , Eosinophils (%) (Auto) , Basophils (%) (Auto) , Differential Total Cells Counted 100, Neutrophils % (Manual) 82H, Lymphocytes % (Manual) 12L, Monocytes % (Manual) 6, Eosinophils % (Manual) 0, Basophils % (Manual) 0, Band Neutrophils 0, Platelet Estimate Adequate, Platelet Morphology Normal, Hypochromasia 2+, Sodium Level 134L, Potassium Level 4.4, Chloride Level 93L, Carbon Dioxide Level 32, Anion Gap 10, Blood Urea Nitrogen 82H, Creatinine 5.0H, Estimat Glomerular Filtration Rate 11.2, Glucose Level 216H, Calcium Level 9.3, Phosphorus Level 3.1, Magnesium Level 2.8H, Total Bilirubin 0.5, Aspartate Amino Transf (AST/SGOT) 31, Alanine Aminotransferase (ALT/SGPT) 22, Alkaline Phosphatase 315H, C-Reactive Protein, Quantitative 9.6H, Total Protein 7.4, Albumin 3.0L, Globulin 4.4, Albumin/Globulin Ratio 0.7L Height (Feet): 5 Height (Inches): 5.00 Weight (Pounds): 169 General Appearance: no apparent distress EENT: normal ENT inspection Neck: supple Cardiovascular: normal rate Respiratory/Chest: decreased breath sounds Abdomen: normal bowel sounds, non tender, soft Extremities: non-tender Assessment/Plan Problem List: (1) Hypertension ICD Codes: I10 - Essential (primary) hypertension SNOMED: 97679346 (2) Diabetes mellitus ICD Codes: E11.9 - Type 2 diabetes mellitus without complications SNOMED: 46696896 (3) Cholelithiasis ICD Codes: K80.20 - Calculus of gallbladder without cholecystitis without obstruction SNOMED: 332567635 Status: stable Assessment/Plan: dysphagia s/p GT placement GTF monitor for residuals fu H&H prn blood transfusion Lawrence Humphreys MD Dec 22, 2019 08:29
[2019-12-22] MEDS: Docusate 100mg/10ml Liq NG SCH ×2 (09:13→14:02)
[2019-12-22] MEDS: Eliquis 2.5mg tablet ORAL SCH (09:13)
[2019-12-22] MEDS: Amiodarone 200mg tab ORAL SCH (09:13)
[2019-12-22] MEDS: Metoprolol Tartrate 12.5mg TAB GT SCH (09:13)
--- NOTE | 2019-12-22 10:24 | Pulmonology Progress Note ---
Subjective ROS Limited/Unobtainable: No Allergies: Coded Allergies: PENICILLINS (Verified Allergy, Unknown, 10/25/19) tolerated Ceftriaxone All Systems: reviewed and negative except above Subjective on [facility] floor leuk trending down; prior fever 12/18, no further CXR 12/18 with findings representing atelectasis versus infectious/inflammatory process versus asymmetric edema. on O2 1-2 L via NC, pulse ox stable off BiPAP and continued to decline it no signs of resp distress code status changed to DNR/DNI on 12/06 by attending due to family wishes Objective Last 24 Hour Vital Signs Date Time Temp Pulse Resp B/P (MAP) Pulse Ox O2 Delivery O2 Flow Rate FiO2 12/22/19 09:13 70 123/76 12/22/19 09:13 70 123/76 12/22/19 08:00 98.2 70 18 123/76 (92) 96 12/22/19 04:00 98.1 69 20 127/71 (89) 96 12/22/19 00:00 97.9 67 20 126/74 (91) 100 12/21/19 21:04 71 121/55 12/21/19 21:03 71 121/55 12/21/19 21:00 Nasal Cannula 1.0 12/21/19 20:00 98 Nasal Cannula 2.0 28 12/21/19 20:00 97.9 71 20 121/55 (77) 99 12/21/19 16:00 97.7 67 20 115/45 (68) 100 12/21/19 12:00 97.9 75 20 122/45 (70) 98 Intake and Output 12/21/19 12/22/19 19:00 07:00 Intake Total 145 ml Output Total 150 ml Balance -5 ml Intake Free Water 100 ml Tube Feeding 45 ml Output Urine Total 150 ml # Voids 2 Objective General Appearance: alert , confused, but more awake American speaking male, Lines, tubes and drains: peripheral HEENT: normocephalic, atraumatic, anicteric, O2 via NC Neck: supple Respiratory/Chest: lungs clear, no respiratory distress Cardiovascular/Chest: normal rate, Abdomen: non tender, soft, feeding tube - G tube Extremities: BL foot TMA Neurologic: abnormal gait, alert, confused, responsive Musculoskeletal: atrophy - BLE Laboratory Tests 12/22/19 05:45: White Blood Count 12.4H, Red Blood Count 3.63L, Hemoglobin 9.9L, Hematocrit 32.2L, Mean Corpuscular Volume 89, Mean Corpuscular Hemoglobin 27.3, Mean Corpuscular Hemoglobin Concent 30.8L, Red Cell Distribution Width 16.5H, Platelet Count 300, Mean Platelet Volume 6.2L, Neutrophils (%) (Auto) , Lymphocytes (%) (Auto) , Monocytes (%) (Auto) , Eosinophils (%) (Auto) , Basophils (%) (Auto) , Differential Total Cells Counted 100, Neutrophils % (Manual) 82H, Lymphocytes % (Manual) 12L, Monocytes % (Manual) 6, Eosinophils % (Manual) 0, Basophils % (Manual) 0, Band Neutrophils 0, Platelet Estimate Adequate, Platelet Morphology Normal, Hypochromasia 2+, Sodium Level 134L, P otassium Level 4.4, Chloride Level 93L, Carbon Dioxide Level 32, Anion Gap 10, Blood Urea Nitrogen 82H, Creatinine 5.0H, Estimat Glomerular Filtration Rate 11.2, Glucose Level 216H, Calcium Level 9.3, Phosphorus Level 3.1, Magnesium Level 2.8H, Total Bilirubin 0.5, Aspartate Amino Transf (AST/SGOT) 31, Alanine Aminotransferase (ALT/SGPT) 22, Alkaline Phosphatase 315H, C-Reactive Protein, Quantitative 9.6H, Total Protein 7.4, Albumin 3.0L, Globulin 4.4, Albu min/Globulin Ratio 0.7L Current Medications Medications (Trade) Dose Ordered Sig/Cammy Route PRN Reason Start Time Stop Time Status Last Admin Dose Admin Allopurinol (allopurinoL) 300 mg DAILY ORAL 11/26/19 10:30 12/24/19 10:29 12/22/19 09:13 Amiodarone HCl (Cordarone) 200 mg DAILY ORAL 12/21/19 09:00 03/03/20 20:59 12/22/19 09:13 Amlodipine Besylate (Norvasc) 5 mg Q12HR GT 11/28/19 21:00 12/24/19 10:29 12/22/19 09:13 Apixaban (Eliquis) 2.5 mg BID ORAL 11/26/19 10:30 02/22/20 10:29 12/22/19 09:13 Atorvastatin Calcium (Lipitor) 10 mg BEDTIME ORAL 11/26/19 21:00 02/22/20 20:59 12/21/19 21:04 Chlorhexidine Gluconate (Yi-Hex 2%) 1 applic DAILY@1999 TOPIC 11/26/19 20:00 02/24/20 19:59 12/21/19 21:03 Dextrose (Dextrose 50%) 25 ml Q30M PRN IV Hypoglycemia 12/03/19 10:30 03/02/20 10:29 Dextrose (Dextrose 50%) 50 ml Q30M PRN IV Hypoglycemia 12/03/19 10:30 03/02/20 10:29 Diphenhydramine HCl (Benadryl) 25 mg Q8H PRN NG Itching 12/03/19 09:30 01/02/20 09:29 12/18/19 00:53 Docusate Sodium (Colace) 100 mg THREE TIMES A DAY NG 11/28/19 13:00 12/28/19 12:59 12/22/19 09:13 Epoetin William (Epoetin William(ESRD on dialysis)) 2,000 unit FRI-FRI-FRI SUBQ 12/20/19 21:00 03/19/20 20:59 12/20/19 20:42 Epoetin William (Epoetin William(ESRD on dialysis)) 8,000 unit FRI-FRI-FRI SUBQ 12/20/19 21:00 03/19/20 20:59 12/20/19 20:42 Insulin Aspart (NovoLOG) Q6HR SUBQ 12/03/19 12:00 03/02/20 11:59 12/22/19 05:39 Lansoprazole (Prevacid) 30 mg DAILY GT 11/28/19 10:45 12/28/19 10:44 12/22/19 09:13 Metoprolol Tartrate (Lopressor) 12.5 mg Q12HR GT 11/29/19 09:00 02/27/20 08:59 12/22/19 09:13 Morphine Sulfate (Morphine 10mg/ 5ml Oral Soln) 1 mg EVERY 6 HOURS PRN ORAL Severe Pain (Pain Scale 7-10) 12/22/19 05:00 12/29/19 04:59 Sennosides (Senokot) 8.6 mg DAILY PRN ORAL Constipation 11/26/19 10:30 12/26/19 10:29 Tramadol HCl (Ultram) 50 mg EVERY 8 HOURS PRN ORAL Moderate Pain (Pain Scale 4-6) 12/22/19 05:00 12/29/19 04:59 Assessment/Plan Assessment/Plan ASSESSMENT Prior acute hypoxemic hypercapnic respiratory failure requiring BiPAP Chronic CO2 retention Possible DAYANA Aspiration risk ? possible PNA; s/p recent PNA Dysphagia , s/p PEG , pulled out, s/p replacement of PEG 11/16 Acute kidney injury on chronic kidney disease, requiring start of HD 10/30 Anemia of chronic kidney disease PAF/flutter- converted to SR Diabetes mellitus HTN PVD with hx of bilateral foot MTA Refusal of care PLAN OF CARE [facility] floor BiPAP at HS and prn , refusing again currently on O2 1 L via NC titrate O2, pulm toilet CXR 11/28 mild vascular congestion and small bilateral pleural effusions, slightly improved when compared to October 31, 2019. No pneumothorax. Cardiomegaly. Calcified aorta. leukocytosis 12/18, now trending down ; fever 12/18 evening, no further fevers CXR 12/18 Similar right lung opacity, predominantly in the right mid and lower lung. Similar to slightly increased left basilar opacity. Findings may represent atelectasis versus infectious/inflammatory process versus asymmetric edema consider ID consult-discussed with Dr Rizzo hold on abx for now will get UA and cx and BCX ( prior hx of MRSA blood in 2018 ) -BCX were cancelled unclear by whom? - per further ID recommendations repeat CXR this am ABG prn rapid COVID NGT, BiPAP prn and HS-continued to refuse patient likely has DAYANA. recommend sleep study as OP developed A flutter/ fib 12/03 seen by cardio already spontaneously converter to SR on a/c with Eliquis, rate controlled with BB ECHO with pEF 55-60% rate control with BB, HR stable on chronic a/c , was on hold for PEG, Eliquis afterwards resumed BP management with CCB and BB, optimize as needed continue statin ethics eval if pt can refuse BiPAP ( patient with dementia, confusion), daughter wants BiPAP and unclear how he refused if was on restraints? in our opinion BiPAP should be on standing order and available in the facility when patient will be transferred need formal polysomnogram to be done as OP bioethics eval appreciated, done 11/25 . per bioethics: pt with diminished capacity and does not understand the consequences of refusing bi-pap, yet it seems inhumane to force him to endure it recommended that he should be discharged to the SNF on nasal canula with ins tructions not to be sent back to the acute care hospital for refusal to accept bi-pap. bioethics offered to have a family conference to explain the reasoning if the family is willing to speak with us. SHERRIE spoke with daughter and ( through RN manager educational) re further GOC and code status 11/29 daughter and decided on DNR/DNI status , which was relayed to me by SW 12/02 Dr Pabon spoke with Dr Chang, code status changed on 12/06 to DNR/DNI dc plan to SNF ; SHERRIE discussed with family ( not want [facility]) , ongoing search for the facility completed Rx for PNA on prior admission Venous Duplex BLE 10/25 -> NGT aspir precautions, TF via GT f protein supplements GI follows pain management HH remains at baseline tolerates GT feeding bowel regimen, c/o intermittent abd pain, no n/v/diarrhea, tolerates GT feeding - per GI management HD as per nephro recs monitor volumes, renal paramerts, lytes s/p placement of permanent HD catheter R chest 11/07 s/p removal of temporary HD catheter by surgeon prior HgA1c -6.1 hold oral anti-glycemic monitor HH with goal to keep Hgb above 7 anemia w/up prior noted , heme on board on EPO GI prophayxlis supportive care dc plan in progress, challenging placement case discussed and evaluated by supervising physician Reema Hanna NP Dec 22, 2019 10:24
--- NOTE | 2019-12-22 10:29 | Nephrology Progress Note ---
Assessment/Plan Problem List: (1) Respiratory distress (2) Diabetes mellitus (3) Hypertension (4) Renal failure (ARF), acute on chronic Assessment Patient's current problem is dyspnea Most likely volume overload versus pneumonitis Other conditions: Renal failure (ARF), acute on chronic h/o Metabolic acidosis h/oElectrolyte imbalance Hyponatremia and hyperkalemia h/oAnemia h/o CHF (congestive heart failure) Plan December 21: Last dialyzed December 19. Labs reviewed. Will order dialysis today December 21. Continue rest. December 20: Dialyzed yesterday. Labs reviewed. Continue per consultants. Dialysis as needed. December 19: Patient due for dialysis today. Today's labs pending. Continue per consultants. December 18: Today's lab results still pending. Last dialyzed December 16. Next dialysis tomorrow December 19. Continue to monitor renal parameters and electrolytes. Continue per consultants. December 17: Patient dialyzed yesterday. Today's labs reviewed. Status quo. Continue per PMD. Next dialysis on FridayDecember 19. December 16: Patient due for dialysis today. Labs reviewed. Status unchanged. Continue with same management. December 15: Patient was dialyzed on December 13. Next dialysis December 16. Status quo. Labs reviewed. Medication list reviewed. Continue current t reatment plan. December 14: Patient was dialyzed yesterday. No chemistry panel done today. Continue to monitor renal parameters and dialysis treatment as needed. Continue per consultants. December 13: Patient due for dialysis today. Labs reviewed. Patient is DNR. Confused. December 12: Last dialysis December 10. Labs reviewed. Medication list reviewed. Continue per current management. Check lab tomorrow, will arrange for dialysis as needed. December 11: Dialyzed yesterday. Status quo. Continue to monitor renal parameters and dialysis as needed. Continue per consultants. December 10: Due for dialysis today. No chemistry panel done today. We will continue to monitor renal parameters. Medication list reviewed. December 09: Last dialyzed December 06. Labs reviewed. Will order dialysis tomorrow. Continue current treatment plan. December 08: Last dialysis December 06. No chemistry panel today. Will check lab tomorrow. Hemodialysis as needed. December 07: Dialyzed yesterday. Labs reviewed. Stable from renal standpoint of view. December 06: Due for dialysis today. CBC and medication list reviewed. Continue per consultants. Hemoglobin drifting down. Will check CBC and chemistry panel tomorrow December 05: Labs reviewed. Serum creatinine up to 4.2. Calculated GFR 13. Last dialysis December 02. Will order dialysis tomorrow. December 04: Status quo. Labs reviewed. Continue per current management. December 03: Patient was dialyzed yesterday. Labs reviewed. Continue per [facility] rent management. December 02: Due for dialysis today. Blood pressure medications on hold. Albumin 25% for BP support during dialysis. Continue to monitor renal parameters. December 01: Labs reviewed. Medication reviewed. Creatinine higher. Hemodial ysis for tomorrow. Continue rest. November 30: Patient was last dialyzed November 28. Not in any distress now. Appears to be more verbal today. Labs reviewed. Creatinine 3.8. Hemoglobin lower at 7.9. 1 dose of IV iron ordered. Subcu Epogen ordered. November 29: Dialyzed yesterday. Status quo. Will check chemistry panel tomorrow. Dialysis as needed. Continue per PMD and consultants. November 28: Due for dialysis and ultrafiltration today. Labs and medications reviewed. Blood pressure is stable. November 27: BNP rising. Not much urine output. Will dialyze and ultrafiltrate tomorrow. Labs reviewed. Continue to adjust blood pressure medications. Continue per consultants. November 26: Last dialysis November 24. Status quo. Labs reviewed. Medication list reviewed. Continue to monitor renal parameters. Dialysis as needed. November 25: Patient was dialyzed yesterday. Today is due for insertion of a GT tube. Patient pulled out his previous GT tube. Labs reviewed. Electrolytes abnormalities adjusted. Continue to monitor renal parameters. Patient is off BiPAP and on nasal cannula now. I believe that upon discharge the patient requires 2-3 times a week dialysis and ultrafiltration however upon discharge the patient needs to be followed by a duct layer supervisor in the facility that he goes to to assess on a regular basis the need and frequency for dialysis. November 24 : Late note entry due to system problem [place] [facility] [place] Patient due for dialysis and ultrafiltration today. Labs reviewed. Chest x-ray results not available on EMR. Last dialysis November 21. Continue pulmonary toilet. Patient remains on BiPAP. Will check labs tomorrow. Subjective ROS Limited/Unobtainable: No Constitutional: Reports: malaise Objective Objective Last 24 Hour Vital Signs Date Time Temp Pulse Resp B/P (MAP) Pulse Ox O2 Delivery O2 Flow Rate FiO2 12/22/19 09:13 70 123/76 12/22/19 09:13 70 123/76 12/22/19 08:00 98.2 70 18 123/76 (92) 96 12/22/19 04:00 98.1 69 20 127/71 (89) 96 12/22/19 00:00 97.9 67 20 126/74 (91) 100 12/21/19 21:04 71 121/55 12/21/19 21:03 71 121/55 12/21/19 21:00 Nasal Cannula 1.0 12/21/19 20:00 98 Nasal Cannula 2.0 28 12/21/19 20:00 97.9 71 20 121/55 (77) 99 12/21/19 16:00 97.7 67 20 115/45 (68) 100 12/21/19 12:00 97.9 75 20 122/45 (70) 98 Intake and Output 12/21/19 12/22/19 19:00 07:00 Intake Total 145 ml Output Total 150 ml Balance -5 ml Intake Free Water 100 ml Tube Feeding 45 ml Output Urine Total 150 ml # Voids 2 Laboratory Tests 12/22/19 05:45: White Blood Count 12.4H, Red Blood Count 3.63L, Hemoglobin 9.9L, Hematocrit 32.2L, Mean Corpuscular Volume 89, Mean Corpuscular Hemoglobin 27.3, Mean Corpuscular Hemoglobin Concent 30.8L, Red Cell Distribution Width 16.5H, Platelet Count 300, Mean Platelet Volume 6.2L, Neutrophils (%) (Auto) , Lymphocytes (%) (Auto) , Monocytes (%) (Auto) , Eosinophils (%) (Auto) , Basophils (%) (Auto) , Differential Total Cells Counted 100, Neutrophils % (Manual) 82H, Lymphocytes % (Manual) 12L, Monocytes % (Manual) 6, Eosinophils % (Manual) 0, Basophils % (Manual) 0, Band Neutrophils 0, Platelet Estimate Adequate, Platelet Morphology Normal, Hypochromasia 2+, Sodium Level 134L, Potassium Level 4.4, Chloride Level 93L, Carbon Dioxide Level 32, Anion Gap 10, Blood Urea Nitrogen 82H, Creatinine 5.0H, Estimat Glomerular Filtration Rate 11.2, Glucose Level 216H, Calcium Level 9.3, Phosphorus Level 3.1, Magnesium Level 2.8H, Total Bilirubin 0.5, Aspartate Amino Transf (AST/SGOT) 31, Alanine Aminotransferase (ALT/SGPT) 22, Alkaline Phosphatase 315H, C-Reactive Protein, Quantitative 9.6H, Total Protein 7.4, Albumin 3.0L, Globulin 4.4, Albumin/Globu vik Ratio 0.7L Height (Feet): 5 Height (Inches): 5.00 Weight (Pounds): 169 General Appearance: no apparent distress Cardiovascular: normal rate Respiratory/Chest: decreased breath sounds Abdomen: soft Objective No change Naveed Vanegas MD Dec 22, 2019 10:29
[2019-12-22 12:00] VITALS: BP 123/57
--- NOTE | 2019-12-22 13:47 | General Progress Note ---
Subjective Constitutional: Reports: no symptoms HEENT: Reports: no symptoms Cardiovascular: Reports: no symptoms Respiratory: Reports: no symptoms Gastrointestinal/Abdominal: Reports: no symptoms Genitourinary: Reports: no symptoms Neurologic/Psychiatric: Reports: no symptoms Hematologic/Lymphatic: Reports: no symptoms Allergies: Coded Allergies: PENICILLINS (Verified Allergy, Unknown, 10/25/19) tolerated Ceftriaxone Objective Last 24 Hour Vital Signs Date Time Temp Pulse Resp B/P (MAP) Pulse Ox O2 Delivery O2 Flow Rate FiO2 12/22/19 12:00 98.6 67 20 123/57 (79) 100 12/22/19 09:13 70 123/76 12/22/19 09:13 70 123/76 12/22/19 09:00 Nasal Cannula 1.0 12/22/19 08:00 98.2 70 18 123/76 (92) 96 12/22/19 04:00 98.1 69 20 127/71 (89) 96 12/22/19 00:00 97.9 67 20 126/74 (91) 100 12/21/19 21:04 71 121/55 12/21/19 21:03 71 121/55 12/21/19 21:00 Nasal Cannula 1.0 12/21/19 20:00 98 Nasal Cannula 2.0 28 12/21/19 20:00 97.9 71 20 121/55 (77) 99 12/21/19 16:00 97.7 67 20 115/45 (68) 100 Intake and Output 12/21/19 12/22/19 18:59 06:59 Intake Total 145 ml Output Total 150 ml Balance -5 ml Intake Free Water 100 ml Tube Feeding 45 ml Output Urine Total 150 ml # Voids 2 Laboratory Tests 12/21/19 17:33: POC Whole Blood Glucose [Pending] 12/21/19 23:08: POC Whole Blood Glucose 207H 12/22/19 05:17: POC Whole Blood Glucose 202H 12/22/19 05:45: White Blood Count 12.4H, Red Blood Count 3.63L, Hemoglobin 9.9L, Hematocrit 32.2L, Mean Corpuscular Volume 89, Mean Corpuscular Hemoglobin 27.3, Mean Corpuscular Hemoglobin Concent 30.8L, Red Cell Distribution Width 16.5H, Platelet Count 300, Mean Platelet Volume 6.2L, Neutrophils (%) (Auto) , Lymphocytes (%) (Auto) , Monocytes (%) (Auto) , Eosinophils (%) (Auto) , Basophils (%) (Auto) , Differential Total Cells Counted 100, Neutrophils % (Manual) 82H, Lymphocytes % (Manual) 12L, Monocytes % (Manual) 6, Eosinophils % (Manual) 0, Basophils % (Manual) 0, Band Neutrophils 0, Platelet Estimate Adequate, Platelet Morphology Normal, Hypochromasia 2+, Sodium Level 134L, Potassium Level 4.4, Chloride Level 93L, Carbon Dioxide Level 32, Anion Gap 10, Blood Urea Nitrogen 82H, Creatinine 5.0H, Estimat Glomerular Filtration Rate 11.2, Glucose Level 216H, Calcium Level 9.3, Phosphorus Level 3.1, Magnesium Level 2.8H, Total Bilirubin 0.5, Aspartate Amino Transf (AST/SGOT) 31, Alanine Aminotransferase (ALT/SGPT) 22, Alkaline Phosphatase 315H, C-Reactive Protein, Quantitative 9.6H, Total Protein 7.4, Albumin 3.0L, Globulin 4.4, Albumin/Globulin Ratio 0.7L 12/22/19 12:19: POC Whole Blood Glucose [Pending] Height (Feet): 5 Height (Inches): 5.00 Weight (Pounds): 169 General Appearance: alert EENT: normal ENT inspection Neck: supple Cardiovascular: normal rate, regular rhythm, no gallop/murmur, no JVD Respiratory/Chest: lungs clear, normal breath sounds, no respiratory distress, no accessory muscle use Abdomen: normal bowel sounds, non tender, soft, no organomegaly, no mass Extremities: non-tender Neurologic: alert, oriented x 3, responsive Assessment/Plan Status: stable Status Narrative Patient has been stable now for the last several days, he is on ceftriaxone 1 g IV piggyback every 24 hours which he tolerates well, he has been afebrile now since December 18 in September any shortness of breath or discomfort is only verbal express complaint is not being discharged patient is undergoing hemodialysis 3 times a week which he tolerated well from medical point of view patient is ready to be discharged on his current medication repeat laboratory tests will be done in a.m. AYUSH Chang,Ayush JANE Dec 22, 2019 13:47
--- NOTE | 2019-12-22 13:49 | Diagnostic Imaging Report ---
Indication: Shortness of breath Technique: One view of the chest Comparison: 12/19/2019 Findings: No definite acute infiltrates, effusions, or congestion. Right jugular tunneled dialysis catheter remains. Previously demonstrated basilar atelectatic changes and likely pleural effusions appear decreased or resolved. Gastrostomy again demonstrated. Impression: Improved basilar pleural and parenchymal disease, over 3 days
[2019-12-22] MEDS ORDERED: PACERONE200 MG GT (15:46)
[2019-12-22] MEDS ORDERED: BENADRYL25 MG GT (15:48)
[2019-12-22] MEDS ORDERED: COLACE100 MG ORAL (15:48)
[2019-12-22] MEDS ORDERED: RETACRIT10000 UNIT SUBQ (15:49)
[2019-12-22] MEDS ORDERED: LANSOPRAZOLE30 MG GT (15:50)
[2019-12-22] MEDS ORDERED: METOPROLOL TART25 MG ORAL (15:51)
[2019-12-22] MEDS ORDERED: ULTRAM50 MG ORAL (15:53)
--- NOTE | 2019-12-22 16:20 | Cardiac Electrophysiology PN ---
Assessment/Plan Assessment/Plan 1. Atrial flutter confirmed with 12-lead EKG. EF 55%. Ruled out for NE protocol. Decrease Amiodarone to 200 po daily , metoprolol 12.5 mg b.i.d. and Eliquis. 2. Hypertension, on Metoprolol 12.5 mg bid , Amlodipine 5 mg b.i.d. and HD 3. Hyperlipidemia, on Lipitor. 4. End-stage renal disease, on hemodialysis. 5. Diabetes on insulin. 6. DNR/DNI 7. COPD, off BiPAP. 8. Peripheral vascular disease, status post bilateral transmetatarsal amputation. 9. S/P PEG DW RN DC to [facility] today pendig Covid Subjective Subjective Confused. PEG feeding. RN at bedside. DC to [facility] today pending rapid Covid Objective Last 24 Hour Vital Signs Date Time Temp Pulse Resp B/P (MAP) Pulse Ox O2 Delivery O2 Flow Rate FiO2 12/22/19 12:00 98.6 67 20 123/57 (79) 100 12/22/19 09:13 70 123/76 12/22/19 09:13 70 123/76 12/22/19 09:00 Nasal Cannula 1.0 12/22/19 08:00 98.2 70 18 123/76 (92) 96 12/22/19 04:00 98.1 69 20 127/71 (89) 96 12/22/19 00:00 97.9 67 20 126/74 (91) 100 12/21/19 21:04 71 121/55 12/21/19 21:03 71 121/55 12/21/19 21:00 Nasal Cannula 1.0 12/21/19 20:00 98 Nasal Cannula 2.0 28 12/21/19 20:00 97.9 71 20 121/55 (77) 99 Intake and Output 12/21/19 12/22/19 19:00 07:00 Intake Total 145 ml Output Total 150 ml Balance -5 ml Intake Free Water 100 ml Tube Feeding 45 ml Output Urine Total 150 ml # Voids 2 Laboratory Tests Test 12/21/19 17:33 12/21/19 23:08 12/22/19 05:17 12/22/19 05:45 POC Whole Blood Glucose Pending 207 MG/DL (74-106) H 202 MG/DL (74-106) H White Blood Count 12.4 K/UL (4.8-10.8) H Red Blood Count 3.63 M/UL (4.70-6.10) L Hemoglobin 9.9 G/DL (14.2-18.0) L Hematocrit 32.2 % (42.0-52.0) L Mean Corpuscular Volume 89 FL (80-99) Mean Corpuscular Hemoglobin 27.3 PG (27.0-31.0) Mean Corpuscular Hemoglobin Concent 30.8 G/DL (32.0-36.0) L Red Cell Distribution Width 16.5 % (11.6-14.8) H Platelet Count 300 K/UL (150-450) Mean Platelet Volume 6.2 FL (6.5-10.1) L Neutrophils (%) (Auto) % (45.0-75.0) Lymphocytes (%) (Auto) % (20.0-45.0) Monocytes (%) (Auto) % (1.0-10.0) Eosinophils (%) (Auto) % (0.0-3.0) Basophils (%) (Auto) % (0.0-2.0) Differential Total Cells Counted 100 Neutrophils % (Manual) 82 % (45-75) H Lymphocytes % (Manual) 12 % (20-45) L Monocytes % (Manual) 6 % (1-10) Eosinophils % (Manual) 0 % (0-3) Basophils % (Manual) 0 % (0-2) Band Neutrophils 0 % (0-8) Platelet Estimate Adequate Platelet Morphology Normal Hypochromasia 2+ Sodium Level 134 MMOL/L (136-145) L Potassium Level 4.4 MMOL/L (3.5-5.1) Chloride Level 93 MMOL/L (98-107) L Carbon Dioxide Level 32 MMOL/L (21-32) Anion Gap 10 mmol/L (5-15) Blood Urea Nitrogen 82 mg/dL (7-18) H Creatinine 5.0 MG/DL (0.55-1.30) H Estimat Glomerular Filtration Rate 11.2 mL/min (>60) Glucose Level 216 MG/DL (74-106) H Calcium Level 9.3 MG/DL (8.5-10.1) Phosphorus Level 3.1 MG/DL (2.5-4.9) Magnesium Level 2.8 MG/DL (1.8-2.4) H Total Bilirubin 0.5 MG/DL (0.2-1.0) Aspartate Amino Transf (AST/SGOT) 31 U/L (15-37) Alanine Aminotransferase (ALT/SGPT) 22 U/L (12-78) Alkaline Phosphatase 315 U/L (46-116) H C-Reactive Protein, Quantitative 9.6 mg/dL (0.00-0.90) H Total Protein 7.4 G/DL (6.4-8.2) Albumin 3.0 G/DL (3.4-5.0) L Globulin 4.4 g/dL Albumin/Globulin Ratio 0.7 (1.0-2.7) L Test 12/22/19 12:19 POC Whole Blood Glucose Pending Microbiology Date/Time Source Procedure Growth Status 12/22/19 14:30 Nasopharynx SARS-CoV-2 RdRp Gene Assay - Final Complete Objective NECK: No JVD. LUNGS: Clear. He has dialysis access in the right IJ. CARDIOVASCULAR: Irregular S1 and S2 with no gallop. ABDOMEN: Status post G-tube. EXTREMITIES: Status post bilateral transmetatarsal amputation. Chris Valentin MD Dec 22, 2019 16:20
[2019-12-22] MEDS ORDERED: Epoetin Alfa-EPBX(ESRD on dialysis)10,000 unit/ml vial SUBQ SCH (21:00)
--- NOTE | 2019-12-24 08:25 | Discharge Summary ---
Discharge Summary Discharge Summary _ DATE OF ADMISSION: 11/23/2019 DATE OF DISCHARGE: 12/22/2019 DISCHARGED BY: Dr. Chang REASON FOR ADMISSION: 79 years old male with PMH of acute hypercapnic respiratory failure and chronic CO2 retention , possible obstructive sleep apnea, hypertension, PVD, diabetes mellitus, ESRD, requiring start of hemodialysis on prior admission , dysphagia , feeding by G-tube (requiring replacement of G-tube since the first time patient pulled it out), was recently hospitalized [place] [facility] At that time patient required some time on the BiPAP to resolve hypercapnia. Hypercapnia improved , and patient was able to be weaned from the BiPAP and placed on oxygen via nasal cannula. Standing order was for BiPAP to be used at nighttime and as needed. Patient was recommended to have Trilogy vent to be arranged upon discharge or Bipap at night. For the last week at the hospital patient continuously declined use of the BiPAP at night. Pulse oximetry remained stable on oxygen via nasal cannula. Patient continued to declne BiPAP at the facility. Patient was sent to ER by his primary physician for evaluation and placement to a new assisted facility. Upon evaluation in emergency room pulse oximetry was 100% on 4 L of oxygen via nasal cannula. ABG revealed PCO2 of 59, no acidosis . Laboratory work-up will no leukocytosis, anemia noted. BUN 62, creatinine 2.9, consistent with known history of end-stage renal disease. Pro BNP 59440. Troponin negative. Rapid COVID-19 was negative. In emergency department patient placed on BiPAP and admitted for further management . Shortly afterwards he was able to be weaned from BiPAP to oxygen via nasal cannula and admitted to telemetry floor for further management. By the time I saw him, he was able to be weaned from the BiPAP to nasal cannula 2L . CONSULTANTS: counting machine operator Dr. Younger pulmonary Dr. Pabon GI specialist Dr. Humphreys tool crib lead Dr. Vanegas rn residential/oncologist Dr. Rizzo [facility] COURSE: Patient is admitted on telemetry floor BiPAP was ordered for nighttime and as needed during the day . Patient was on supplemental oxygen , titrated to keep pulse oximetry above 92% . Pulmonary toilet provided . Patient was followed -up with chest x-ray . Venous duplex bilateral lower extremity on prior admission was negative. Patient developed atrial flutter. Heart rate was controlled with amiodarone and beta-cristopher Patient started on anticoagulation with Eliquis. Patient spontaneously converted to sinus rhythm Serial troponin were negative. Patient was ruled out for acute myocardial infarction. Blood pressure was managed with beta-cristopher , calcium channel cristopher and hemodialysis. Statin continued. Hemodialysis provided as per tool crib lead recommendations with close monitoring of volumes and renal parameters. Electrolytes corrected as needed. Aspiration precautions maintained. Patient undergone bedside swallow evaluation , Speech therapist recommended continue with tube feeding. Tube feeding formula with goal rate and protein supplements provided as per registered dietitian recommendation. Patient was able to tolerate tube feeding Bowel regimen instituted. GI prophylaxis provided Patient continuously was refusing BiPAP. Ethics evaluation was requested if patient can refuse BiPAP since patient had underlying dementia and confusion. Daughter initially wanted BiPAP . Per bioethics evaluation, patient had diminished capacity and did not understand the consequences of refusing BiPAP. However per bioethics committee it seemed inhumane to force him to endure it and recommended that he should be discharged to SNF on nasal canula with instructions not to be sent back to the acute care hospital for refusal to accept BIPAP. Family conference was held regarding further goals of care and CODE STATUS . CODE STATUS changed to DNR/DNI on 12/06 as per family wishes. Pain management was addressed as needed. Hemoglobin and hematocrit were closely monitored with goal to keep hemoglobin above 7. Anemia work-up was done on prior admission and was consistent with anemia of chronic disease. Hemoglobin hematocrit remained at baseline Blood sugar was managed with sliding scale of insulin as needed. Hemoglobin A1c 6.1, at goal. Supportive care provided. Patient spiked leukocytosis on 12/18. Chest x-ray revealed possible right lung opacity, representing atelectasis versus infectious process. Follow-up chest x-ray revealed improved basilar pleural and parenchymal disease over 3 days. Leukocytosis trended down . Urine culture came back at the time of this dictation and revealed growth of Klebsiella ESBL. Patient will be started at the facility on Levaquin renally dosed 250 mg q 48 hrs for 7 days. Prior to discharge pulse oximetry was stable on oxygen 1 L via nasal cannula. Outpatient polysomnogram was recommended to rule out obstructive sleep apnea. Patient clinically stabilized and was ready for transfer to assisted facility for continuation of care. FINAL DIAGNOSES: Recent acute hypoxemic hypercapnic respiratory failure requiring BiPAP Chronic CO2 retention Possible obstructive sleep apnea Possible pneumonia, with history of recent pneumonia Klebsiella ESBL UTI Hypertension Hyperlipidemia Dysphagia, status post PEG Aspiration risk Acute on chronic renal failure, on hemodialysis Anemia of chronic kidney disease Paroxysmal atrial fibrillation/flutter Diabetes mellitus PVD with a history of bilateral foot MTA Anemia of chronic disease Refusal of care DNR/DNI status DISCHARGE MEDICATIONS: See Medication Reconciliation list. DISCHARGE INSTRUCTIONS: Patient was discharged to the assisted facility. Follow up with medical doctor at the facility. I have been assigned to dictate discharge summary for this account. Reema Hanna NP Dec 24, 2019 08:25
== END 2019-12-22 17:10 | DRG 469 ==
LOC: EDBD 22:40 → EMR 22:58 → EDBEDREQ 23:23 → OBSVTOIN 23:40 → INTOOBSV 23:40 → 2W 23:40 → EDBEDREQ 23:53 → 2W 11-25 10:41 → 2E 11-26 06:31 → 4E 12-10 20:32
PROC: 5A09557 Assistance with Respiratory Ventilation, Greater than 96 Consecutive Hours, Continuous Positive Airway Pressure (ICD-10-PCS; principal; 2019-11-23)
PROC: 5A1D70Z Performance of Urinary Filtration, Intermittent, Less than 6 Hours Per Day (ICD-10-PCS; 2019-11-24)
PROC: 0DH63UZ Insertion of Feeding Device into Stomach, Percutaneous Approach (ICD-10-PCS; 2019-11-26 13:16)
DX: N17.9 Acute kidney failure, unspecified (principal); E87.70 Fluid overload, unspecified; J18.9 Pneumonia, unspecified organism; J96.92 Respiratory failure, unspecified with hypercapnia; E87.5 Hyperkalemia; D69.6 Thrombocytopenia, unspecified; R13.10 Dysphagia, unspecified; G47.33 Obstructive sleep apnea (adult) (pediatric); E11.22 Type 2 diabetes mellitus with diabetic chronic kidney disease; I50.20 Unspecified systolic (congestive) heart failure; I73.9 Peripheral vascular disease, unspecified; I48.92 Unspecified atrial flutter; Z93.0 Tracheostomy status; E78.5 Hyperlipidemia, unspecified; Z20.828 Contact with and (suspected) exposure to other viral communicable diseases; I13.2 Hypertensive heart and chronic kidney disease with heart failure and with stage 5 chronic kidney disease, or end stage renal disease; N18.6 End stage renal disease; Z99.2 Dependence on renal dialysis; Z66 Do not resuscitate; Z78.1 Physical restraint status; D63.1 Anemia in chronic kidney disease; N39.0 Urinary tract infection, site not specified; B96.1 Klebsiella pneumoniae [K. pneumoniae] as the cause of diseases classified elsewhere; I48.0 Paroxysmal atrial fibrillation; Z91.19 Patient's noncompliance with other medical treatment and regimen; J44.0 Chronic obstructive pulmonary disease with (acute) lower respiratory infection; R31.9 Hematuria, unspecified; K80.20 Calculus of gallbladder without cholecystitis without obstruction
CPT/HCPCS: 36415; 36600; 71045; 74018; 80053; 80061; 82550; 82607; 82728; 82746; 82803; 82962; 82977; 83036; 83540; 83550; 83615; 83735; 83880; 84100; 84443; 84484; 84550; 85007; 85025; 86140; 86705; 86706; 86708; 86709; 86803; 86850; 86900; 86901; 86920; 87086; 87181; 87340; 87517; 93005; 94003; 94150; 94660; 99284; J1815; J2310; S0077; U0002